=== PATIENT | male | born 1955 | race American Indian/Alaskan Native ===

== ENCOUNTER 2016-03-24 13:21 | Inpatient (IN) | payer OTHER ==
[2016-03-24] MEDS ORDERED: NACL 0.9% 1000 ML 500 ML IV ONE (13:40)
[2016-03-24 14:31] LABS: Basophils % (Auto) 0.1 % (0.0-1.8); Hemoglobin 16.5 gm/dl (11.8-15.2); Mean Corpuscular HGB Conc 32 % (32-34); Mean Corpuscular Hemoglobin 26 pg (28-32); Mean Corpuscular Volume 83 fl (84-94); Platelet Count 188 K/mm3 (140-440); Red Blood Count 6.25 M/mm3 (3.65-5.03); Red Cell Distribution Width 14.8 % (13.2-15.2); White Blood Count 20.1 K/mm3 (4.5-11.0)
[2016-03-24 14:41] LABS: Albumin 3.5 g/dL (3.9-5); Albumin/Globulin Ratio 0.9 %; BUN/Creatinine Ratio 16.84; Bilirubin,Total 0.3 mg/dL (0.1-1.2); Calcium 10.1 mg/dL (8.4-10.2); INR 1.15 (0.87-1.13); Total Protein 7.4 g/dL (6.3-8.2)
[2016-03-24 14:47] LABS: Bilirubin,Urine NEG (Negative); Blood,Urine SM (Negative); Ketones,Urine NEG (Negative); Leukocyte Esterase,Urine NEG (Negative); Mucus,Urine FEW /HPF; Nitrite,Urine NEG (Negative); Protein,Urine <15 mg/dL mg/dL (Negative); RBC,Urine < 1.0 /HPF (0.0-6.0); Urobilinogen,Urine < 2.0 mg/dL (<2.0)
--- NOTE | 2016-03-24 14:49 | Emergency Department Report ---
HPI - General Chief Complaint: Hyperglycemia Time Seen by Provider: 03/24/16 13:47 - HPI HPI: This is a 61-year-old Afro-Turkish male who presents to the emergency department via EMS with what appears to be some altered mental status and generalized weakness. Patient has some garbled speech but does follow some commands. He is a very poor historian. Currently AAO 2. He appears disoriented and is incontinent of urine. He has a past medical history of diabetes, hypertension, seizures as well as a history of valve replacement and aortic repair in the past. Unknown who is current primary care doctor is. ED Past Medical Hx - Past Medical History Hx Hypertension: Yes Hx Diabetes: Yes Hx Seizures: Yes Hx Psychiatric Treatment: Yes Additional medical history: Mechanical aortic valve, ascending thoracia aortic disection 2013 - Surgical History Additional Surgical History: valve replacement, aortic repair 06/2013, ascending thoracia aortic disection repair 2013 - Social History Smoking Status: Never Smoker - Medications Home Medications: Home Medications Medication Instructions Recorded Confirmed Last Taken Type Amiodarone [Cordarone 200 MG TAB] 200 mg PO DAILY #30 tablet 05/07/15 03/24/16 Unknown Rx AtorvaSTATin [Lipitor] 10 mg PO QHS tablet 05/07/15 03/24/16 Unknown Rx Famotidine [Pepcid] 20 mg PO BID tablet 05/07/15 03/24/16 Unknown Rx Insulin Glargine [Lantus VIAL] 30 units SUB-Q QHS units 05/07/15 03/24/16 Unknown Rx Labetalol [Normodyne TAB] 300 mg PO BID #60 tablet 05/07/15 03/24/16 Unknown Rx QUEtiapine [SEROquel] 25 mg PO BID #60 tablet 05/07/15 03/24/16 Unknown Rx cloNIDine [Catapres] 0.2 mg PO TID #90 tablet 05/07/15 03/24/16 Unknown Rx levETIRAcetam [Keppra TAB] 500 mg PO BID #60 tablet 05/07/15 03/24/16 Unknown Rx metFORMIN [Glucophage] 500 mg PO BID #60 tablet 05/07/15 03/24/16 Unknown Rx Lisinopril [Zestril TAB] 40 mg PO BID 09/23/15 03/24/16 Unknown History NIFEdipine 60 mg PO DAILY 09/23/15 03/24/16 Unknown History Prazosin [Minipress] 5 mg PO BID 09/23/15 03/24/16 Unknown History glipiZIDE [glipiZIDE ER] 5 mg PO QAM 09/23/15 03/24/16 Unknown History Carvedilol [Coreg] 3.125 mg PO BID #60 tablet 09/24/15 03/24/16 Unknown Rx ED Review of Systems ROS: Stated complaint: HYPERGLYCEMIA Other details as noted in HPI Comment: Unobtainable due to pts medical conditions Physical Exam - Physical Exam Vital Signs: Vital Signs 03/24/16 03/24/16 03/24/16 13:33 13:34 13:36 Pulse Rate 101 H 104 H Respiratory 24 Rate Blood Pressure 187/142 187/142 Blood Pressure 187/102 [Right] O2 Sat by Pulse 93 Oximetry 03/24/16 03/24/16 03/24/16 13:37 13:39 13:41 Pulse Rate 103 H 100 H Respiratory 29 H 19 21 Rate Blood Pressure 187/142 187/142 187/142 Blood Pressure [Right] O2 Sat by Pulse 94 94 Oximetry 03/24/16 03/24/16 03/24/16 13:43 13:45 13:47 Pulse Rate Respiratory 29 H 24 24 Rate Blood Pressure 187/142 187/142 187/142 Blood Pressure [Right] O2 Sat by Pulse 92 95 92 Oximetry 03/24/16 03/24/16 03/24/16 13:49 13:51 13:53 Pulse Rate Respiratory 18 27 H 37 H Rate Blood Pressure 187/142 187/142 187/142 Blood Pressure [Right] O2 Sat by Pulse 94 93 92 Oximetry 03/24/16 03/24/16 03/24/16 13:55 13:57 13:59 Pulse Rate Respiratory 22 25 H Rate Blood Pressure 187/142 187/142 187/142 Blood Pressure [Right] O2 Sat by Pulse 97 96 97 Oximetry 03/24/16 03/24/16 03/24/16 14:00 14:01 14:03 Pulse Rate Respiratory Rate Blood Pressure 162/116 162/116 187/142 Blood Pressure [Right] O2 Sat by Pulse 96 95 93 Oximetry 03/24/16 03/24/16 03/24/16 14:05 14:07 14:09 Pulse Rate Respiratory Rate Blood Pressure 187/142 187/142 187/142 Blood Pressure [Right] O2 Sat by Pulse 96 91 96 Oximetry 03/24/16 03/24/16 03/24/16 14:11 14:13 14:15 Pulse Rate Respiratory Rate Blood Pressure 187/142 187/142 187/142 Blood Pressure [Right] O2 Sat by Pulse 95 93 95 Oximetry 03/24/16 03/24/16 03/24/16 14:17 14:19 14:21 Pulse Rate 99 H 99 H Respiratory 18 Rate Blood Pressure 187/142 187/142 187/142 Blood Pressure [Right] O2 Sat by Pulse 92 96 95 Oximetry 03/24/16 03/24/16 14:23 14:25 Pulse Rate 98 H 98 H Respiratory 14 14 Rate Blood Pressure 187/142 187/142 Blood Pressure [Right] O2 Sat by Pulse 97 100 Oximetry Physical Exam: GENERAL: The patient is well-developed. Patient appears confused. HEENT: Normocephalic. Atraumatic. Extraocular motions are intact. Patient has moist mucous membranes. Pupils equal reactive to light bilaterally. NECK: Supple. Trachea is midline. CHEST/LUNGS: Clear to auscultation. There is no respiratory distress noted. HEART/CARDIOVASCULAR: Regular. There is no tachycardia. There is no gallop rub or murmur. ABDOMEN: Abdomen is soft, nontender. Patient has normal bowel sounds. There is no abdominal distention. SKIN: There is no rash. There is no edema. There is no diaphoresis. NEURO: Patient is fatigued but is arousable. Patient appears confused. AAO 1- 2. Patient has some garbled or mumbled speech. Follows some commands. Withdraws from painful stimuli. MUSCULOSKELETAL: There is no tenderness or deformity. There is no limitation range of motion. There is no evidence of acute injury. ED Course Vital Signs 03/24/16 03/24/16 03/24/16 13:33 13:34 13:36 Pulse Rate 101 H 104 H Respiratory 24 Rate Blood Pressure 187/142 187/142 Blood Pressure 187/102 [Right] O2 Sat by Pulse 93 Oximetry 03/24/16 03/24/16 03/24/16 13:37 13:39 13:41 Pulse Rate 103 H 100 H Respiratory 29 H 19 21 Rate Blood Pressure 187/142 187/142 187/142 Blood Pressure [Right] O2 Sat by Pulse 94 94 Oximetry 03/24/16 03/24/16 03/24/16 13:43 13:45 13:47 Pulse Rate Respiratory 29 H 24 24 Rate Blood Pressure 187/142 187/142 187/142 Blood Pressure [Right] O2 Sat by Pulse 92 95 92 Oximetry 03/24/16 03/24/16 03/24/16 13:49 13:51 13:53 Pulse Rate Respiratory 18 27 H 37 H Rate Blood Pressure 187/142 187/142 187/142 Blood Pressure [Right] O2 Sat by Pulse 94 93 92 Oximetry 03/24/16 03/24/16 03/24/16 13:55 13:57 13:59 Pulse Rate Respiratory 22 25 H Rate Blood Pressure 187/142 187/142 187/142 Blood Pressure [Right] O2 Sat by Pulse 97 96 97 Oximetry 03/24/16 03/24/16 03/24/16 14:00 14:01 14:03 Pulse Rate Respiratory Rate Blood Pressure 162/116 162/116 187/142 Blood Pressure [Right] O2 Sat by Pulse 96 95 93 Oximetry 03/24/16 03/24/16 03/24/16 14:05 14:07 14:09 Pulse Rate Respiratory Rate Blood Pressure 187/142 187/142 187/142 Blood Pressure [Right] O2 Sat by Pulse 96 91 96 Oximetry 03/24/16 03/24/16 03/24/16 14:11 14:13 14:15 Pulse Rate Respiratory Rate Blood Pressure 187/142 187/142 187/142 Blood Pressure [Right] O2 Sat by Pulse 95 93 95 Oximetry 03/24/16 03/24/16 03/24/16 14:17 14:19 14:21 Pulse Rate 99 H 99 H Respiratory 18 Rate Blood Pressure 187/142 187/142 187/142 Blood Pressure [Right] O2 Sat by Pulse 92 96 95 Oximetry 03/24/16 03/24/16 14:23 14:25 Pulse Rate 98 H 98 H Respiratory 14 14 Rate Blood Pressure 187/142 187/142 Blood Pressure [Right] O2 Sat by Pulse 97 100 Oximetry ED Medical Decision Making - Lab Data Result diagrams: 03/24/16 14:00 03/24/16 14:00 - EKG Data -: EKG Interpreted by [facility] EKG shows normal: sinus rhythm, axis (LAD), intervals (short MA, LBBB), QRS complexes, ST-T waves (NSST CHanges) Rate: normal - EKG Data When compared to previous EKG there are: previous EKG unavailable Sinus rhythm with short MA interval, left axis deviation, left bundle branch block 03/24/16 18:42 - Medical Decision Making 58-year-old male presents the emergency department with the complaints of altered mental status and some hyperglycemia. However after the patient's workup he does not appear to be in DKA or HHNK. Patient's EKG shows a short MA interval and a left bundle branch block but no obvious signs of ST elevation VT. Patient does have some significant lab abnormalities with a hypernatremia with a sodium of 164, hypochloremia, renal insufficiency. A CT of the head was done for the patient's altered mental status. Also because the patient displays some garbled speech but the CT shows only senescent changes and no acute process at this time. Patient was given some subcutaneous insulin for his hyperglycemia. He was given some IV fluid at normal saline for fully reproducing his hypernatremia. Patient will be admitted to hospital for further evaluation and is been accepted for admission by the hospitalist, Dr. Hernandez. - Differential Diagnosis DKA, HHNK, hypernatremia, CVA, dementia Critical Care Time: No Critical care attestation.: If time is entered above; I have spent that time in minutes in the direct care of this critically ill patient, excluding procedure time. ED Disposition Clinical Impression: Hypertensive urgency, Hypernatremia, Hyperchloremia, Renal insufficiency Altered mental status Qualifiers: Altered mental status type: unspecified Qualified Code(s): R41.82 - Altered mental status, unspecified Disposition: OP ADMITTED IP TO THIS HOSP Is pt being admited?: Yes Condition: Poor Time of Disposition: 16:20
--- NOTE | 2016-03-24 15:23 | XRay Report ---
AP CHEST History: Sepsis Findings: Cardiac surgery changes are again noted. There is decreased cardiomegaly since 09/23/15. Heart size is borderline on today's exam. Normal pulmonary vascularity. The lungs are clear. The aorta is mildly ectatic but well-defined. Impression: Borderline heart size. Lungs clear.
--- NOTE | 2016-03-24 15:27 | Cat Scan Report ---
CT head without contrast: Axial images are obtained with comparison to prior study of April 2015. There is marked decreased periventricular white matter change. There are a couple of lacunar infarcts in the right caudate nucleus. There is a peripheral infarct in the superior right frontal lobe. There is moderate cerebral atrophy. There is no hemorrhage, mass effect, or extracerebral collection. The visualized bones and soft tissues are generally unremarkable. The findings are generally unchanged from prior exam. Impression: No recent findings. Senescent changes.
[2016-03-24] MEDS ORDERED: NACL 0.9% 500 ML 500 ML ONE (15:32)
--- NOTE | 2016-03-24 15:57 | Admit Criteria Form ---
Admission Criteria Documentation: HYPONATREMIA; HYPERNATREMIA; HYPOKALEMIA; HYPERKALEMIA; HYPOCALCEMIA; HYPERCALCEMIA Clinical Indications for Inpatient Care (Place 'X' for any and all applicable criteria): Ongoing inpatient care may be indicated for ANY ONE of the following [G](1)(2)(3 )(5): [ ]I. Hyponatremia with ANY ONE of the following: [ ]a) Sodium less than 130 mEq/L (mmol/L) (new) (6)(22) [ ]b) Sodium less than 135 mEq/L (mmol/L) with ANY ONE of the following: [ ]i) Severe medical etiology requiring inpatient management (eg, heart failure, hypovolemia) [ ]ii) Altered mental status [ ]iii) Seizures [X]II. Hypernatremia with ANY ONE of the following: [X]a) Sodium greater than 155 mEq/L (mmol/L) [X]b) Sodium greater than 150 mEq/L (mmol/L) with ANY ONE of the following: [X] i) Altered mental status [ ]ii) Seizures [ ]iii) Severe medical etiology (eg, hypovolemia, diabetes insipidus) [X]iv) Severe weakness [ ]v) Severe medical etiology (eg, hemolysis, infection, drug overdose) [ ]III. Hypokalemia with ANY ONE of the following: [ ]a) Potassium less than 2.5 mEq/L (mmol/L) despite outpatient and emergency treatment [ ]b) Potassium less than 3.0 mEq/L (mmol/L) with ANY ONE of the following: [ ]i) Weakness [ ]ii) Cardiac abnormality (eg, arrhythmia, conduction disturbance) [ ]iii) Cardiac ischemia [ ]iv) Ileus [ ]v) Ongoing medical cause requiring inpatient management. ( e.g., acute renal wasting, SIADH) [ ]vi) Other severe symptoms [ ] IV. Hyperkalemia with ANY ONE of the following: [ ]a) Potassium greater than 6.5 mEq/L (mmol/L) [ ]b) Potassium greater than 5 mEq/L (mmol/L) with ANY ONE of the following: [ ]i) Severe ECG findings [H] [ ]ii) Acute worsening of renal failure (creatinine greater than 2.5 mg/dL (221 micromoles/L) or significant elevation for age and size) [ ] V. Hypocalcemia with ANY ONE of the following: [ ]a) Calcium less than 7 mg/dL (1.75 mmol/L) despite outpatient and emergency treatment(19) [ ]b) Calcium less than 8 mg/dL (2 mmol/L) with significant symptoms or findings; examples include: [ ]i) Cardiac abnormality (eg, arrhythmia or conduction disturbance) [ ]ii) Altered mental status [ ]iii) Seizures [ ]iv) Breathing difficulty [ ]v) Muscle spasms [ ]. Hypercalcemia with ANY ONE of the following: [ ]a) Calcium greater than 14 mg/dL (3.5 mmol/L) [ ]b) Calcium greater than 12 mg/dL (3 mmol/L) with ANY ONE of the following: [ ]i) Significant dehydration or hypovolemia as indicated by ANY ONE of the following(2): [ ]1. Clinically significant dehydration as indicated by ANY ONE of the following: [ ]A. Acute loss of weight from baseline (5% of body weight in adults, 9% in pediatric patients) [ ]B. Hemodynamic instability [ ]C. Acute renal failure [ ]D. Serum sodium greater than 150 mEq/L (mmol/L) [ ]2) Dehydration that is persistent indicated by ALL of the following: [ ]A. Oral rehydration therapy not tolerated or insufficient to adequately correct dehydration [ ]B. Appropriate intravenous treatment (eg, fluids ) does not readily correct dehydration ie, after 12 to 24 hours of treatment) [ ]ii) Significant symptoms or findings; examples include: [ ]1) Altered mental status [ ]2) Cardiac abnormality (eg, arrhythmia, conduction disturbance) [ ]3) Cardiac abnormality (eg, arrhythmia, conduction disturbance) The original [facility] content created by [employer] has been revised. The portions of the content which have been revised are identified through the use of italic text or in bold, and [facility] has neither reviewed nor approved the modified material. All other unmodified content is copyright [facility] Please see references footnoted in the original [facility] edition 2016 Admission Criteria Met: Yes
[2016-03-24] MEDS ORDERED: NORMODYNE IV ONE (16:12)
[2016-03-24] MEDS ORDERED: DULCOLAX PR PRN (17:22)
--- NOTE | 2016-03-24 17:50 | History and Physical Report ---
History of Present Illness Date of examination: 03/24/16 Date of admission: 03/24/16 Chief complaint: Change in mental status, weakness History of present illness: Michael is a 60 years old -[place] male with nonobstructive CAD per recent CAD, hypertension, hyperlipidemia, bioprosthetic aortic valve replacement, chronic kidney disease, diabetes and seizure disorder who was brought to ER by his family for change in mental status and generalized weakness; his family left immediately after bringing him in, so no details are obtainable. Past History Past Medical History: CAD, diabetes, hypertension, hyperlipidemia, renal failure , seizures, other (bioprosthetic aortic valve, aortic dissection; obtained per chart review) Past Surgical History: Other (bioprosthetic aortic valve replacement, aortic dissection repair 2; obtained per chart review) Social history: other (unable to obtain due to patient's mental status) Family history: other (unable to obtain due to patient's mental status) Medications and Allergies Allergies Allergy/AdvReac Type Severity Reaction Status Date / Time No Known Allergies Allergy Unverified 05/19/13 09:32 Home Medications Medication Instructions Recorded Confirmed Last Taken Type Amiodarone [Cordarone 200 MG TAB] 200 mg PO DAILY #30 tablet 05/07/15 03/24/16 Unknown Rx AtorvaSTATin [Lipitor] 10 mg PO QHS tablet 05/07/15 03/24/16 Unknown Rx Famotidine [Pepcid] 20 mg PO BID tablet 05/07/15 03/24/16 Unknown Rx Insulin Glargine [Lantus VIAL] 30 units SUB-Q QHS units 05/07/15 03/24/16 Unknown Rx Labetalol [Normodyne TAB] 300 mg PO BID #60 tablet 05/07/15 03/24/16 Unknown Rx QUEtiapine [SEROquel] 25 mg PO BID #60 tablet 05/07/15 03/24/16 Unknown Rx cloNIDine [Catapres] 0.2 mg PO TID #90 tablet 05/07/15 03/24/16 Unknown Rx levETIRAcetam [Keppra TAB] 500 mg PO BID #60 tablet 05/07/15 03/24/16 Unknown Rx metFORMIN [Glucophage] 500 mg PO BID #60 tablet 05/07/15 03/24/16 Unknown Rx Lisinopril [Zestril TAB] 40 mg PO BID 09/23/15 03/24/16 Unknown History NIFEdipine 60 mg PO DAILY 09/23/15 03/24/16 Unknown History Prazosin [Minipress] 5 mg PO BID 09/23/15 03/24/16 Unknown History glipiZIDE [glipiZIDE ER] 5 mg PO QAM 09/23/15 03/24/16 Unknown History Carvedilol [Coreg] 3.125 mg PO BID #60 tablet 09/24/15 03/24/16 Unknown Rx Active Meds: Active Medications Acetaminophen (Tylenol) 650 mg PO Q4H PRN PRN Reason: Pain MILD(1-3)/Fever >100.5/DUVAL Amiodarone HCl (Cordarone) 200 mg PO DAILY [facility] Atorvastatin Calcium (Lipitor) 10 mg PO QHS ANA LUISA Bisacodyl (Dulcolax) 10 mg WA QDAY PRN PRN Reason: Constipation unrelieved by MOM Carvedilol (Coreg) 3.125 mg PO BID [facility] Clonidine HCl (Catapres) 0.2 mg PO TID [facility] Dextrose (D50w (25gm)) 50 ml IV PRN PRN PRN Reason: Hypoglycemia Famotidine (Pepcid) 20 mg PO BID [facility] Heparin Sodium (Porcine) (Heparin) 5,000 unit SUB-Q Q8HR ANA LUISA Dextrose/Sodium Chloride (D5/0.45ns) 1,000 mls @ 125 mls/hr IV DIRECT ANA LUISA Insulin Glargine (Lantus) 30 units SUB-Q QHS [facility] Insulin Glulisine (Apidra) 0 units SUB-Q ACHS ANA LUISA PRN Reason: Protocol Levetiracetam (Keppra) 500 mg PO BID ANA LUISA Magnesium Hydroxide (Milk Of Magnesia) 30 ml PO Q4H PRN PRN Reason: Constipation Nifedipine (Procardia*For Tocolysis Only*) 60 mg PO DAILY [facility] Ondansetron HCl (Zofran) 4 mg IV Q8H PRN PRN Reason: N/V unrelieved by Reglan Prazosin HCl (Minipress) 5 mg PO BID [facility] Quetiapine Fumarate (Seroquel) 25 mg PO BID [facility] Review of Systems ROS unobtainable: due to mental status Exam - Constitutional Vitals: Temp Pulse Resp BP Pulse Ox 98 H 22 187/142 98 03/24/16 14:25 03/24/16 14:46 03/24/16 14:25 03/24/16 14:46 General appearance: Present: mild distress, other (frail, chronically ill- appearing, confused) - EENT Eyes: Present: PERRL, EOM intact. Absent: scleral icterus, conjunctival injection - Neck Neck: Present: supple. Absent: enlarged thyroid, masses or JVD - Respiratory Respiratory effort: normal Respiratory: bilateral: CTA, negative: rales, rhonchi, wheezing - Cardiovascular Rhythm: regular Heart Sounds: Present: S1 & S2, systolic murmur - Extremities Extremities: no ischemia - Abdominal General gastrointestinal: Present: soft, non-tender, non-distended, normal bowel sounds - Integumentary Integumentary: Present: warm, dry. Absent: jaundice, rash - Musculoskeletal Musculoskeletal: generalized weakness - Psychiatric Psychiatric: other (confused, oriented to person only) - Neurologic Neurologic: focal deficits Results - Labs CBC & Chem 7: 03/24/16 14:00 03/24/16 14:00 Labs: Abnormal lab results 03/24/16 03/24/16 03/24/16 Range/Units 14:00 14:00 14:00 WBC 20.1 H (4.5-11.0) K/mm3 RBC 6.25 H (3.65-5.03) M/mm3 Hgb 16.5 H (11.8-15.2) gm/dl Hct 52.0 H (35.5-45.6) % MCV 83 L (84-94) fl MCH 26 L (28-32) pg Lymph % (Auto) 4.5 L (13.4-35.0) % Buchanan % (Auto) 9.5 H (0.0-7.3) % Lymph # 0.9 L (1.2-5.4) K/mm3 [place]anan # 1.9 H (0.0-0.8) K/mm3 Seg Neutrophils % 85.9 H (40.0-70.0) % Seg Neutrophils # 17.2 H (1.8-7.7) K/mm3 INR 1.15 H (0.87-1.13) Sodium 164 H* (137-145) mmol/L Chloride 126.0 H (98-107) mmol/L BUN 32 H (9-20) mg/dL Creatinine 1.9 H (0.8-1.5) mg/dL Glucose 331 H (75-100) mg/dL Lactic Acid (0.7-2.1) mmol/L Albumin 3.5 L (3.9-5) g/dL 03/24/16 03/24/16 Range/Units 14:00 15:26 WBC (4.5-11.0) K/mm3 RBC (3.65-5.03) M/mm3 Hgb (11.8-15.2) gm/dl Hct (35.5-45.6) % MCV (84-94) fl MCH (28-32) pg Lymph % (Auto) (13.4-35.0) % Buchanan % (Auto) (0.0-7.3) % Lymph # (1.2-5.4) K/mm3 [place]anan # (0.0-0.8) K/mm3 Seg Neutrophils % (40.0-70.0) % Seg Neutrophils # (1.8-7.7) K/mm3 INR (0.87-1.13) Sodium (137-145) mmol/L Chloride (98-107) mmol/L BUN (9-20) mg/dL Creatinine (0.8-1.5) mg/dL Glucose (75-100) mg/dL Lactic Acid 2.6 H 2.8 H (0.7-2.1) mmol/L Albumin (3.9-5) g/dL - Imaging and Cardiology EKG: image reviewed Chest x-ray: image reviewed (no acute findings) CT Scan - head: report reviewed (no acute findings) Assessment and Plan 1. Acute metabolic encephalopathy Secondary to electrolyte abnormalities, uncontrolled HTN/DM Treating underlying conditions 2. Hypernatremia Severe, sodium 164 on admission Received 500 mL NaCL in ER Start D5 1/2 NS Plan to slowly decrease it, to avoid demyelinization syndrome Check sodium levels every 6 hours 3. Hyperchloremia IV fluids 4. Hypertensive emergency Most likely has a significant component of rebound hypertension secondary to clonidine skipped doses UA positive for blood Give IV hydralazine Resume home antihypertensives - clonidine, Coreg and nifedipine; hold labetalol as no reason to be on 2 beta blockers; hold lisinopril due to renal insufficiency Monitor BP and adjust regimen accordingly; add hydralazine po if not well controlled 5. Acute on chronic renal insufficiency Likely vasomotor nephropathy due to decreased intake on top of chronic insufficiency secondary to uncontrolled hypertension/diabetes Give IV fluids Monitor BUN/creatinine and electrolytes Further workup if renal function worsens 6. Dehydration IV fluids 7. Elevated HGb Likely secondary to hemoconcentration due to dehydration Recheck after IV fluids given 8. Uncontrolled diabetes Resume long-acting insulin Add SSI based on Accu-Cheks Monitor closely and adjust insulin doses 9. Leukocytosis No obvious infection Chest x-ray with no acute findings, UA negative Possible secondary to stress reaction Monitor 10. Seizure disorder Resume Keppra Seizure precautions 11. Nonobstructive CAD Per recent cath Resume beta em and statin Start aspirin Hold LUIS A inhibitor due to renal insufficiency 12. History of arrhythmia On amiodarone Not on anticoagulation Will consult his marine surveyor, [facility] 13. Bioprosthetic aortic valve replacement See above 14. Aortic dissection status post repair 2 15. DVT prophylaxis Heparin subcutaneous, SCDs
[2016-03-24] MEDS ORDERED: PROCARDIA*For Tocolysis only PO SCH (18:00)
[2016-03-24] MEDS ORDERED: APRESOLINE IV ONE (18:00)
[2016-03-24] MEDS: CATAPRES PO SCH (19:36)
[2016-03-24] MEDS: CORDARONE PO SCH (19:37)
[2016-03-24] MEDS ORDERED: APRESOLINE IV SCH (20:00)
[2016-03-24] MEDS ORDERED: CATAPRES-TTS PATCH TD SCH (20:00)
[2016-03-24 21:13] LABS: BUN/Creatinine Ratio 15.55; Calcium 10.1 mg/dL (8.4-10.2); Chloride 130.3 mmol/L (98-107); Potassium 3.5 mmol/L (3.6-5.0)
[2016-03-24] MEDS: D5/0.45NS 1,000 ML IV SCH (21:15)
[2016-03-24] MEDS ORDERED: D5/0.45NS 1,000 ML IV ONE (21:19)
[2016-03-25] MEDS: COREG PO SCH ×2 (00:15→10:12)
[2016-03-25] MEDS: PEPCID PO SCH ×2 (00:15→10:13)
[2016-03-25] MEDS: MINIPRESS PO SCH ×2 (00:15→10:12)
[2016-03-25] MEDS: KEPPRA PO SCH ×2 (00:15→10:12)
[2016-03-25] MEDS: APIDRA SUB-Q SCH ×5 (00:15→22:35)
[2016-03-25] MEDS: LANTUS SUB-Q SCH ×2 (00:15→22:30)
[2016-03-25] MEDS: HEPARIN SUB-Q SCH ×4 (00:30→21:55)
[2016-03-25] MEDS: APRESOLINE IV PRN ×3 (05:30→21:55)
[2016-03-25 06:33] LABS: Hematocrit 52.7 % (35.5-45.6); Hemoglobin 16.7 gm/dl (11.8-15.2); Mean Corpuscular HGB Conc 32 % (32-34); Mean Corpuscular Hemoglobin 27 pg (28-32); Mean Corpuscular Volume 83 fl (84-94); Platelet Count 191 K/mm3 (140-440); Red Blood Count 6.32 M/mm3 (3.65-5.03); Red Cell Distribution Width 15.1 % (13.2-15.2); White Blood Count 21.3 K/mm3 (4.5-11.0)
[2016-03-25 06:53] LABS: BUN/Creatinine Ratio 16.11; Calcium 9.5 mg/dL (8.4-10.2); Chloride 130.4 mmol/L (98-107); Potassium 3.5 mmol/L (3.6-5.0)
[2016-03-25 07:51] LABS: Basophils % (Manual) 0 % (0.0-1.8); Blastocytes % (Manual) 0 %; Diff Status Complete; Eosinophils % (Manual) 0 % (0.0-4.3); RBC Morphology Normal
[2016-03-25] MEDS: CATAPRES PO SCH ×2 (08:07→15:27)
[2016-03-25] MEDS: CORDARONE PO SCH (10:12)
[2016-03-25] MEDS: PROCARDIA XL PO SCH (10:13)
--- NOTE | 2016-03-25 12:08 | Progress Note ---
Assessment and Plan - Patient Problems (1) Hypernatremia Current Visit: Yes Status: Acute Plan to address problem: IVF, supportive care, monitor serum sodium, (2) Encephalopathy Current Visit: Yes Status: Acute Plan to address problem: metabolic: continue current care. ivf, supportive care. (3) Acute renal failure Current Visit: Yes Status: Acute Plan to address problem: IVF, supportive care, monitor uop q 4 hrs. (4) Leukocytosis Current Visit: Yes Status: Acute Plan to address problem: continue current care, NO infective source, continue empiric abx. (5) DVT prophylaxis Current Visit: Yes Status: Acute History Interval history: Pt lying in bed, no reported nursing events. Pt displays mild cognitive slowing. Pt responds to questions. Pt denies pain. Pt states that " I am on the mend". Hospitalist Physical - Constitutional Vitals: Temp Pulse Resp BP Pulse Ox 98.4 F 124 H 20 168/103 99 03/25/16 07:58 03/25/16 10:00 03/25/16 10:00 03/25/16 07:58 03/25/16 10:00 General appearance: Present: mild distress, cachectic, other (frail, chronically ill-appearing, confused) - EENT Eyes: Present: PERRL, EOM intact ENT: hearing intact - Neck Neck: Present: supple - Respiratory Respiratory: bilateral: diminished - Cardiovascular Rhythm: regular Heart Sounds: Present: S1 & S2 - Extremities Extremities: no ischemia Extremity abnormal: edema Peripheral Pulses: within normal limits - Abdominal General gastrointestinal: soft, non-tender, non-distended - Integumentary Integumentary: Present: clear, dry - Psychiatric Psychiatric: no intact judgment & insight - Neurologic Neurologic: CNII-XII intact Results - Labs CBC & Chem 7: 03/25/16 05:56 03/25/16 05:56 Labs: Laboratory Last Values WBC 21.3 K/mm3 (4.5-11.0) H 03/25/16 05:56 RBC 6.32 M/mm3 (3.65-5.03) H 03/25/16 05:56 Hgb 16.7 gm/dl (11.8-15.2) H 03/25/16 05:56 Hct 52.7 % (35.5-45.6) H 03/25/16 05:56 MCV 83 fl (84-94) L 03/25/16 05:56 MCH 27 pg (28-32) L 03/25/16 05:56 MCHC 32 % (32-34) 03/25/16 05:56 RDW 15.1 % (13.2-15.2) 03/25/16 05:56 Plt Count 191 K/mm3 (140-440) 03/25/16 05:56 Lymph % (Auto) 4.5 % (13.4-35.0) L 03/24/16 14:00 [place] % (Auto) 9.5 % (0.0-7.3) H 03/24/16 14:00 Eos % (Auto) 0.0 % (0.0-4.3) 03/24/16 14:00 Baso % (Auto) 0.1 % (0.0-1.8) 03/24/16 14:00 Lymph # 0.9 K/mm3 (1.2-5.4) L 03/24/16 14:00 [place] # 1.9 K/mm3 (0.0-0.8) H 03/24/16 14:00 Eos # 0.0 K/mm3 (0.0-0.4) 03/24/16 14:00 Baso # 0.0 K/mm3 (0.0-0.1) 03/24/16 14:00 Add Manual Diff Complete 03/25/16 05:56 Total Counted 100 03/25/16 05:56 Seg Neutrophils % 85.9 % (40.0-70.0) H 03/24/16 14:00 Seg Neuts % (Manual) 91.0 % (40.0-70.0) H 03/25/16 05:56 Band Neutrophils % 1.0 % 03/25/16 05:56 Lymphocytes % (Manual) 4.0 % (13.4-35.0) L 03/25/16 05:56 Reactive Lymphs % (Man) 0 % 03/25/16 05:56 Monocytes % (Manual) 4.0 % (0.0-7.3) 03/25/16 05:56 Eosinophils % (Manual) 0 % (0.0-4.3) 03/25/16 05:56 Basophils % (Manual) 0 % (0.0-1.8) 03/25/16 05:56 Metamyelocytes % 0 % 03/25/16 05:56 Myelocytes % 0 % 03/25/16 05:56 Promyelocytes % 0 % 03/25/16 05:56 Blast Cells % 0 % 03/25/16 05:56 Nucleated RBC % Not Reportable 03/25/16 05:56 Seg Neutrophils # 17.2 K/mm3 (1.8-7.7) H 03/24/16 14:00 Seg Neutrophils # Man 19.4 K/mm3 (1.8-7.7) H 03/25/16 05:56 Band Neutrophils # 0.2 K/mm3 03/25/16 05:56 Lymphocytes # (Manual) 0.9 K/mm3 (1.2-5.4) L 03/25/16 05:56 Abs React Lymphs (Man) 0.0 K/mm3 03/25/16 05:56 Monocytes # (Manual) 0.9 K/mm3 (0.0-0.8) H 03/25/16 05:56 Eosinophils # (Manual) 0.0 K/mm3 (0.0-0.4) 03/25/16 05:56 Basophils # (Manual) 0.0 K/mm3 (0.0-0.1) 03/25/16 05:56 Metamyelocytes # 0.0 K/mm3 03/25/16 05:56 Myelocytes # 0.0 K/mm3 03/25/16 05:56 Promyelocytes # 0.0 K/mm3 03/25/16 05:56 Blast Cells # 0.0 K/mm3 03/25/16 05:56 WBC Morphology Not Reportable 03/25/16 05:56 Hypersegmented Neuts Not Reportable 03/25/16 05:56 Hyposegmented Neuts Not Reportable 03/25/16 05:56 Hypogranular Neuts Not Reportable 03/25/16 05:56 Smudge Cells Not Reportable 03/25/16 05:56 Toxic Granulation Not Reportable 03/25/16 05:56 Toxic Vacuolation Not Reportable 03/25/16 05:56 Dohle Bodies Not Reportable 03/25/16 05:56 Pelger-Huet Anomaly Not Reportable 03/25/16 05:56 Corina Rods Not Reportable 03/25/16 05:56 Platelet Estimate Appears normal 03/25/16 05:56 Clumped Platelets Not Reportable 03/25/16 05:56 Plt Clumps, EDTA Not Reportable 03/25/16 05:56 Large Platelets Not Reportable 03/25/16 05:56 Giant Platelets Not Reportable 03/25/16 05:56 Platelet Satelliting Not Reportable 03/25/16 05:56 Plt Morphology Comment Not Reportable 03/25/16 05:56 RBC Morphology Normal 03/25/16 05:56 Dimorphic RBCs Not Reportable 03/25/16 05:56 Polychromasia Not Reportable 03/25/16 05:56 Hypochromasia Not Reportable 03/25/16 05:56 Poikilocytosis Not Reportable 03/25/16 05:56 Anisocytosis Not Reportable 03/25/16 05:56 Microcytosis Not Reportable 03/25/16 05:56 Macrocytosis Not Reportable 03/25/16 05:56 Spherocytes Not Reportable 03/25/16 05:56 Pappenheimer Bodies Not Reportable 03/25/16 05:56 Sickle Cells Not Reportable 03/25/16 05:56 Target Cells Not Reportable 03/25/16 05:56 Tear Drop Cells Not Reportable 03/25/16 05:56 Ovalocytes Not Reportable 03/25/16 05:56 Helmet Cells Not Reportable 03/25/16 05:56 [place]gr[place] Bodies Not Reportable 03/25/16 05:56 [place] Rings Not Reportable 03/25/16 05:56 Tuan Cells Not Reportable 03/25/16 05:56 Bite Cells Not Reportable 03/25/16 05:56 Crenated Cell Not Reportable 03/25/16 05:56 Elliptocytes Not Reportable 03/25/16 05:56 Acanthocytes (Spur) Not Reportable 03/25/16 05:56 Rouleaux Not Reportable 03/25/16 05:56 Hemoglobin C Crystals Not Reportable 03/25/16 05:56 Schistocytes Not Reportable 03/25/16 05:56 Malaria parasites Not Reportable 03/25/16 05:56 Gideon Bodies Not Reportable 03/25/16 05:56 Hem Pathologist Commnt No 03/25/16 05:56 PT 14.6 Sec. (12.2-14.9) 03/24/16 14:00 INR 1.15 (0.87-1.13) H 03/24/16 14:00 VBG pH 7.418 (7.320-7.420) 03/24/16 14:00 Sodium 172 mmol/L (137-145) H* 03/25/16 05:56 Potassium 3.5 mmol/L (3.6-5.0) L 03/25/16 05:56 Chloride 130.4 mmol/L (98-107) H 03/25/16 05:56 Carbon Dioxide 23 mmol/L (22-30) 03/25/16 05:56 Anion Gap 22 mmol/L 03/25/16 05:56 BUN 29 mg/dL (9-20) H 03/25/16 05:56 Creatinine 1.8 mg/dL (0.8-1.5) H 03/25/16 05:56 Estimated GFR 46 ml/min 03/25/16 05:56 BUN/Creatinine Ratio 16.11 % 03/25/16 05:56 Glucose 187 mg/dL (75-100) H 03/25/16 05:56 POC Glucose 231 (70-105) H 03/25/16 07:55 Hemoglobin A1c 9.6 % (4-6) H 03/24/16 14:00 Lactic Acid 2.8 mmol/L (0.7-2.1) H 03/24/16 15:26 Calcium 9.5 mg/dL (8.4-10.2) 03/25/16 05:56 Total Bilirubin 0.3 mg/dL (0.1-1.2) 03/24/16 14:00 AST 24 units/L (5-40) 03/24/16 14:00 ALT 38 units/L (7-56) 03/24/16 14:00 Alkaline Phosphatase 77 units/L (35-129) 03/24/16 14:00 Total Protein 7.4 g/dL (6.3-8.2) 03/24/16 14:00 Albumin 3.5 g/dL (3.9-5) L 03/24/16 14:00 Albumin/Globulin Ratio 0.9 % 03/24/16 14:00 Triglycerides 88 mg/dL (2-149) 03/24/16 17:58 Cholesterol 221 mg/dL (50-199) H 03/24/16 17:58 LDL Cholesterol Direct 146 mg/dL (50-130) H 03/24/16 17:58 HDL Cholesterol 58 mg/dL (40-59) 03/24/16 17:58 Cholesterol/HDL Ratio 3.81 % 03/24/16 17:58 Urine Color Yellow (Yellow) 03/24/16 14:27 Urine Turbidity Clear (Clear) 03/24/16 14:27 Urine pH 5.0 (5.0-7.0) 03/24/16 14:27 Ur Specific [place] 1.017 (1.003-1.030) 03/24/16 14:27 Urine Protein <15 mg/dl mg/dL (Negative) 03/24/16 14:27 Urine Glucose (UA) >=500 mg/dL (Negative) 03/24/16 14:27 Urine Ketones Neg mg/dL (Negative) 03/24/16 14:27 Urine Blood Sm (Negative) 03/24/16 14:27 Urine Nitrite Neg (Negative) 03/24/16 14:27 Urine Bilirubin Neg (Negative) 03/24/16 14:27 Urine Urobilinogen < 2.0 mg/dL (<2.0) 03/24/16 14:27 Ur Leukocyte Esterase Neg (Negative) 03/24/16 14:27 Urine WBC (Auto) 2.0 /HPF (0.0-6.0) 03/24/16 14:27 Urine RBC (Auto) < 1.0 /HPF (0.0-6.0) 03/24/16 14:27 U Epithel Cells (Auto) 4.0 /HPF (0-13.0) 03/24/16 14:27 Hyaline Casts 1 /LPF 03/24/16 14:27 Urine Mucus Few /HPF 03/24/16 14:27 Ketones 1.0 mg/dL (0.2-2.8) 03/24/16 14:00
[2016-03-25] MEDS: D5/0.45NS 1,000 ML IV SCH ×2 (16:52→21:59)
[2016-03-26] MEDS: CATAPRES PO SCH ×4 (00:02→20:40)
[2016-03-26] MEDS: COREG PO SCH ×3 (00:03→23:14)
[2016-03-26] MEDS: KEPPRA PO SCH ×3 (00:03→23:12)
[2016-03-26] MEDS: PEPCID PO SCH ×3 (00:05→23:16)
[2016-03-26] MEDS: MINIPRESS PO SCH ×3 (00:05→22:30)
[2016-03-26] MEDS: HEPARIN SUB-Q SCH ×3 (05:38→23:13)
[2016-03-26] MEDS: APIDRA SUB-Q SCH ×3 (10:24→17:00)
[2016-03-26] MEDS: NACL 0.45% 1000 ML 1,000 ML IV SCH ×4 (10:25→20:10)
[2016-03-26] MEDS: ROCEPHIN/NS 1 GM/50 ML 50 ML IV SCH (10:26)
--- NOTE | 2016-03-26 12:50 | XRay Report ---
KUB: History: Dobbhoff placement. Findings: Tip of the feeding tube is noted in distal stomach. No bowel distention. Impression: Tip of Dobbhoff feeding tube is noted in distal stomach.
[2016-03-26] MEDS: CORDARONE PO SCH (14:12)
[2016-03-26] MEDS: PROCARDIA XL PO SCH (14:12)
[2016-03-26] MEDS ORDERED: NACL 0.45% 500 ML IV ONE (15:45)
[2016-03-26] MEDS ORDERED: VERSED IV ONE ×2 (15:56→15:59)
[2016-03-26] MEDS ORDERED: NACL 0.9% 1000 ML 1,000 ML IV SCH ×2 (16:00→20:00)
[2016-03-26 16:27] LABS: ISTAT Base Excess -2; ISTAT HCO3 21.2; ISTAT PCO2 26.5 (35-45); ISTAT PH 7.511 (7.35-7.45); ISTAT PO2 70 (80-105); ISTAT SO2 96; ISTAT TCO2 22
[2016-03-26] MEDS ORDERED: VASELINE LIP THERAPY TP PRN (16:29)
[2016-03-26] MEDS ORDERED: ARTIFICIAL TEARS OPHTH OINT OU PRN (16:29)
--- NOTE | 2016-03-26 16:31 | Progress Note ---
Assessment and Plan - Patient Problems (1) Acute respiratory failure Current Visit: Yes Status: Acute Plan to address problem: Pt intubated, sedated, place on vesu suppport, pulmonary toilet, daily SBT The high probability of a clinically significant, sudden or life threatening deterioration of the [cardiac, pulmonary, endocrine] system(s) required my full and direct attention, intervention and personal management. The aggregate critical care time was [40] minutes. This time is in addition to time spent performing reported procedures but includes the following: [x] Data Review and interpretation [x] Patient assessment and monitoring of vital signs [x] Documentation [x] Medication orders and management (2) Hypernatremia Current Visit: Yes Status: Acute Plan to address problem: IVF, supportive care, monitor serum sodium, (3) Encephalopathy Current Visit: Yes Status: Acute Plan to address problem: metabolic: continue current care. ivf, supportive care. (4) Acute renal failure Current Visit: Yes Status: Acute Plan to address problem: IVF, supportive care, monitor uop q 4 hrs. (5) Leukocytosis Current Visit: Yes Status: Acute Plan to address problem: continue current care, NO infective source, continue empiric abx. (6) DVT prophylaxis Current Visit: Yes Status: Acute History Interval history: Pt lying in bed. Pt found by nursing staff to have respiratory pauses, hypotensive, and confused. Code MED was called. Pt intubated and placed on vest support. Hospitalist Physical - Constitutional Vitals: Temp Pulse Resp BP Pulse Ox 98.9 F 96 H 20 180/116 100 03/26/16 12:38 03/26/16 12:38 03/26/16 12:38 03/26/16 12:38 03/26/16 10:08 General appearance: Present: mild distress, cachectic, other (frail, chronically ill-appearing, confused) - EENT Eyes: Present: PERRL - Neck Neck: Present: supple - Respiratory Respiratory: bilateral: diminished - Cardiovascular Rhythm: regular Heart Sounds: Present: S1 & S2 - Extremities Extremities: no ischemia Extremity abnormal: edema - Abdominal General gastrointestinal: soft, non-distended - Integumentary Integumentary: Present: clear, dry - Psychiatric Psychiatric: appropriate mood/affect, cooperative - Neurologic Neurologic: CNII-XII intact Results - Labs CBC & Chem 7: 03/25/16 05:56 03/25/16 05:56 Labs: Laboratory Last Values WBC 21.3 K/mm3 (4.5-11.0) H 03/25/16 05:56 RBC 6.32 M/mm3 (3.65-5.03) H 03/25/16 05:56 Hgb 16.7 gm/dl (11.8-15.2) H 03/25/16 05:56 Hct 52.7 % (35.5-45.6) H 03/25/16 05:56 MCV 83 fl (84-94) L 03/25/16 05:56 MCH 27 pg (28-32) L 03/25/16 05:56 MCHC 32 % (32-34) 03/25/16 05:56 RDW 15.1 % (13.2-15.2) 03/25/16 05:56 Plt Count 191 K/mm3 (140-440) 03/25/16 05:56 Lymph % (Auto) 4.5 % (13.4-35.0) L 03/24/16 14:00 [place] % (Auto) 9.5 % (0.0-7.3) H 03/24/16 14:00 Eos % (Auto) 0.0 % (0.0-4.3) 03/24/16 14:00 Baso % (Auto) 0.1 % (0.0-1.8) 03/24/16 14:00 Lymph # 0.9 K/mm3 (1.2-5.4) L 03/24/16 14:00 [place] # 1.9 K/mm3 (0.0-0.8) H 03/24/16 14:00 Eos # 0.0 K/mm3 (0.0-0.4) 03/24/16 14:00 Baso # 0.0 K/mm3 (0.0-0.1) 03/24/16 14:00 Add Manual Diff Complete 03/25/16 05:56 Total Counted 100 03/25/16 05:56 Seg Neutrophils % 85.9 % (40.0-70.0) H 03/24/16 14:00 Seg Neuts % (Manual) 91.0 % (40.0-70.0) H 03/25/16 05:56 Band Neutrophils % 1.0 % 03/25/16 05:56 Lymphocytes % (Manual) 4.0 % (13.4-35.0) L 03/25/16 05:56 Reactive Lymphs % (Man) 0 % 03/25/16 05:56 Monocytes % (Manual) 4.0 % (0.0-7.3) 03/25/16 05:56 Eosinophils % (Manual) 0 % (0.0-4.3) 03/25/16 05:56 Basophils % (Manual) 0 % (0.0-1.8) 03/25/16 05:56 Metamyelocytes % 0 % 03/25/16 05:56 Myelocytes % 0 % 03/25/16 05:56 Promyelocytes % 0 % 03/25/16 05:56 Blast Cells % 0 % 03/25/16 05:56 Nucleated RBC % Not Reportable 03/25/16 05:56 Seg Neutrophils # 17.2 K/mm3 (1.8-7.7) H 03/24/16 14:00 Seg Neutrophils # Man 19.4 K/mm3 (1.8-7.7) H 03/25/16 05:56 Band Neutrophils # 0.2 K/mm3 03/25/16 05:56 Lymphocytes # (Manual) 0.9 K/mm3 (1.2-5.4) L 03/25/16 05:56 Abs React Lymphs (Man) 0.0 K/mm3 03/25/16 05:56 Monocytes # (Manual) 0.9 K/mm3 (0.0-0.8) H 03/25/16 05:56 Eosinophils # (Manual) 0.0 K/mm3 (0.0-0.4) 03/25/16 05:56 Basophils # (Manual) 0.0 K/mm3 (0.0-0.1) 03/25/16 05:56 Metamyelocytes # 0.0 K/mm3 03/25/16 05:56 Myelocytes # 0.0 K/mm3 03/25/16 05:56 Promyelocytes # 0.0 K/mm3 03/25/16 05:56 Blast Cells # 0.0 K/mm3 03/25/16 05:56 WBC Morphology Not Reportable 03/25/16 05:56 Hypersegmented Neuts Not Reportable 03/25/16 05:56 Hyposegmented Neuts Not Reportable 03/25/16 05:56 Hypogranular Neuts Not Reportable 03/25/16 05:56 Smudge Cells Not Reportable 03/25/16 05:56 Toxic Granulation Not Reportable 03/25/16 05:56 Toxic Vacuolation Not Reportable 03/25/16 05:56 Dohle Bodies Not Reportable 03/25/16 05:56 Pelger-Huet Anomaly Not Reportable 03/25/16 05:56 Corina Rods Not Reportable 03/25/16 05:56 Platelet Estimate Appears normal 03/25/16 05:56 Clumped Platelets Not Reportable 03/25/16 05:56 Plt Clumps, EDTA Not Reportable 03/25/16 05:56 Large Platelets Not Reportable 03/25/16 05:56 Giant Platelets Not Reportable 03/25/16 05:56 Platelet Satelliting Not Reportable 03/25/16 05:56 Plt Morphology Comment Not Reportable 03/25/16 05:56 RBC Morphology Normal 03/25/16 05:56 Dimorphic RBCs Not Reportable 03/25/16 05:56 Polychromasia Not Reportable 03/25/16 05:56 Hypochromasia Not Reportable 03/25/16 05:56 Poikilocytosis Not Reportable 03/25/16 05:56 Anisocytosis Not Reportable 03/25/16 05:56 Microcytosis Not Reportable 03/25/16 05:56 Macrocytosis Not Reportable 03/25/16 05:56 Spherocytes Not Reportable 03/25/16 05:56 Pappenheimer Bodies Not Reportable 03/25/16 05:56 Sickle Cells Not Reportable 03/25/16 05:56 Target Cells Not Reportable 03/25/16 05:56 Tear Drop Cells Not Reportable 03/25/16 05:56 Ovalocytes Not Reportable 03/25/16 05:56 Helmet Cells Not Reportable 03/25/16 05:56 Mcgrath-[place] Bodies Not Reportable 03/25/16 05:56 [place] Rings Not Reportable 03/25/16 05:56 Tuan Cells Not Reportable 03/25/16 05:56 Bite Cells Not Reportable 03/25/16 05:56 Crenated Cell Not Reportable 03/25/16 05:56 Elliptocytes Not Reportable 03/25/16 05:56 Acanthocytes (Spur) Not Reportable 03/25/16 05:56 Rouleaux Not Reportable 03/25/16 05:56 Hemoglobin C Crystals Not Reportable 03/25/16 05:56 Schistocytes Not Reportable 03/25/16 05:56 Malaria parasites Not Reportable 03/25/16 05:56 Gideon Bodies Not Reportable 03/25/16 05:56 Hem Pathologist Commnt No 03/25/16 05:56 PT 14.6 Sec. (12.2-14.9) 03/24/16 14:00 INR 1.15 (0.87-1.13) H 03/24/16 14:00 VBG pH 7.418 (7.320-7.420) 03/24/16 14:00 Sodium 172 mmol/L (137-145) H* 03/25/16 05:56 Potassium 3.5 mmol/L (3.6-5.0) L 03/25/16 05:56 Chloride 130.4 mmol/L (98-107) H 03/25/16 05:56 Carbon Dioxide 23 mmol/L (22-30) 03/25/16 05:56 Anion Gap 22 mmol/L 03/25/16 05:56 BUN 29 mg/dL (9-20) H 03/25/16 05:56 Creatinine 1.8 mg/dL (0.8-1.5) H 03/25/16 05:56 Estimated GFR 46 ml/min 03/25/16 05:56 BUN/Creatinine Ratio 16.11 % 03/25/16 05:56 Glucose 187 mg/dL (75-100) H 03/25/16 05:56 POC Glucose 280 (70-105) H 03/26/16 12:38 Hemoglobin A1c 9.6 % (4-6) H 03/24/16 14:00 Lactic Acid 2.8 mmol/L (0.7-2.1) H 03/24/16 15:26 Calcium 9.5 mg/dL (8.4-10.2) 03/25/16 05:56 Total Bilirubin 0.3 mg/dL (0.1-1.2) 03/24/16 14:00 AST 24 units/L (5-40) 03/24/16 14:00 ALT 38 units/L (7-56) 03/24/16 14:00 Alkaline Phosphatase 77 units/L (35-129) 03/24/16 14:00 Lactate Dehydrogenase 460 units/L (91-180) H 03/25/16 05:56 Total Protein 7.4 g/dL (6.3-8.2) 03/24/16 14:00 Albumin 3.5 g/dL (3.9-5) L 03/24/16 14:00 Albumin/Globulin Ratio 0.9 % 03/24/16 14:00 Triglycerides 88 mg/dL (2-149) 03/24/16 17:58 Cholesterol 221 mg/dL (50-199) H 03/24/16 17:58 LDL Cholesterol Direct 146 mg/dL (50-130) H 03/24/16 17:58 HDL Cholesterol 58 mg/dL (40-59) 03/24/16 17:58 Cholesterol/HDL Ratio 3.81 % 03/24/16 17:58 Urine Color Yellow (Yellow) 03/24/16 14:27 Urine Turbidity Clear (Clear) 03/24/16 14:27 Urine pH 5.0 (5.0-7.0) 03/24/16 14:27 Ur Specific [place] 1.017 (1.003-1.030) 03/24/16 14:27 Urine Protein <15 mg/dl mg/dL (Negative) 03/24/16 14:27 Urine Glucose (UA) >=500 mg/dL (Negative) 03/24/16 14:27 Urine Ketones Neg mg/dL (Negative) 03/24/16 14:27 Urine Blood Sm (Negative) 03/24/16 14:27 Urine Nitrite Neg (Negative) 03/24/16 14:27 Urine Bilirubin Neg (Negative) 03/24/16 14:27 Urine Urobilinogen < 2.0 mg/dL (<2.0) 03/24/16 14:27 Ur Leukocyte Esterase Neg (Negative) 03/24/16 14:27 Urine WBC (Auto) 2.0 /HPF (0.0-6.0) 03/24/16 14:27 Urine RBC (Auto) < 1.0 /HPF (0.0-6.0) 03/24/16 14:27 U Epithel Cells (Auto) 4.0 /HPF (0-13.0) 03/24/16 14:27 Hyaline Casts 1 /LPF 03/24/16 14:27 Urine Mucus Few /HPF 03/24/16 14:27 Ketones 1.0 mg/dL (0.2-2.8) 03/24/16 14:00
[2016-03-26] MEDS ORDERED: NACL 0.9% 500 ML IV SCH (17:00)
[2016-03-26 17:20] LABS: BUN/Creatinine Ratio 13.63; Calcium 8.1 mg/dL (8.4-10.2); Chloride 128.5 mmol/L (98-107); Potassium 3.4 mmol/L (3.6-5.0)
[2016-03-26 17:21] LABS: Mean Corpuscular HGB Conc 31 % (32-34); Mean Corpuscular Hemoglobin 26 pg (28-32); Mean Corpuscular Volume 84 fl (84-94); Platelet Count 139 K/mm3 (140-440); Red Blood Count 5.17 M/mm3 (3.65-5.03); Red Cell Distribution Width 15.1 % (13.2-15.2)
[2016-03-26 17:28] LABS: Hematocrit 43.6 % (35.5-45.6); Hemoglobin 13.4 gm/dl (11.8-15.2)
--- NOTE | 2016-03-26 18:07 | Event Note ---
[facility] Central line note Requested by hospitalist Dr. Hernandez and machine umbrella tipper Dr. Mendoza to place a central line. Central line note Consent was obtained by family Location: Right femoral The site was prepped and draped in a sterile fashion Site was anesthetized with lidocaine 1% approximately 3 mL Landmarks identified and needle introduced until return of dark nonpulsatile blood Blood was obtained on first attempt Guidewire introduced using Seldinger technique and triple lumen catheter placed over guidewire There was blood return from all 3 ports Catheter was secured to patient by adhesive The patient tolerated procedure well There were no complications
[2016-03-26] MEDS: NACL 0.9% 1000 ML 2,000 ML IV SCH ×2 (19:00→20:10)
[2016-03-26 19:24] LABS: ISTAT Base Excess -3; ISTAT PCO2 33.9 (35-45); ISTAT PH 7.419 (7.35-7.45); ISTAT PO2 150 (80-105); ISTAT SO2 99; ISTAT TCO2 23
[2016-03-26] MEDS: KCL 20MEQ/100ML 100 ML IV SCH ×3 (20:46→23:43)
[2016-03-27 03:02] LABS: BUN/Creatinine Ratio 14.7; Chloride 126.7 mmol/L (98-107)
[2016-03-27] MEDS: APIDRA SUB-Q SCH ×5 (03:41→23:27)
[2016-03-27] MEDS: LANTUS SUB-Q SCH (03:42)
[2016-03-27] MEDS: NACL 0.45% 1000 ML 1,000 ML IV SCH (06:10)
[2016-03-27] MEDS: HEPARIN SUB-Q SCH ×3 (06:10→23:24)
[2016-03-27] MEDS: D5W 1,000 ML IV SCH ×3 (06:14→23:28)
[2016-03-27 06:51] LABS: ISTAT Base Excess -7; ISTAT HCO3 17.8; ISTAT PCO2 27.3 (35-45); ISTAT PH 7.423 (7.35-7.45); ISTAT PO2 50 (80-105); ISTAT SO2 87; ISTAT TCO2 19
[2016-03-27 06:51] LABS: ISTAT Base Excess -6; ISTAT HCO3 18.8; ISTAT PCO2 30.3 (35-45); ISTAT PH 7.401 (7.35-7.45); ISTAT PO2 112 (80-105); ISTAT SO2 98; ISTAT TCO2 20
[2016-03-27] MEDS: APRESOLINE IV PRN ×2 (08:07→14:13)
[2016-03-27] MEDS: CATAPRES PO SCH ×3 (08:07→23:26)
[2016-03-27] MEDS ORDERED: ARTIFICIAL TEARS OPHTH OINT OU PRN (08:55)
[2016-03-27] MEDS ORDERED: VASELINE LIP THERAPY TP PRN (08:55)
--- NOTE | 2016-03-27 08:58 | XRay Report ---
Single view chest: Compared to 03/24/16. History: ET tube placement. Findings: Cardiomegaly. Stable support system. Tip of endotracheal tube in normal position. No consolidation, pneumothorax or pleural effusion. Impression: Cardiomegaly. No acute lung changes.
[2016-03-27] MEDS ORDERED: VERSED/NS 100MG/100ML 100 ML IV SCH (09:00)
[2016-03-27] MEDS: ZOFRAN IV PRN (09:10)
[2016-03-27] MEDS: ROCEPHIN/NS 1 GM/50 ML 50 ML IV SCH (09:13)
--- NOTE | 2016-03-27 09:19 | XRay Report ---
Single view chest: Compared to 03/26/16. History: Followup of respiratory failure. Findings: Cardiomegaly. Trachea is midline. Stable support system. No consolidation, pneumothorax or pleural effusion. Impression: Cardiomegaly. No acute lung changes.
[2016-03-27 09:36] LABS: Hematocrit 39.5 % (35.5-45.6); Hemoglobin 12.6 gm/dl (11.8-15.2); Mean Corpuscular HGB Conc 32 % (32-34); Mean Corpuscular Hemoglobin 27 pg (28-32); Mean Corpuscular Volume 83 fl (84-94); Platelet Count 113 K/mm3 (140-440); Red Blood Count 4.74 M/mm3 (3.65-5.03); Red Cell Distribution Width 14.7 % (13.2-15.2); White Blood Count 14.2 K/mm3 (4.5-11.0)
[2016-03-27] MEDS: COREG PO SCH ×3 (10:32→23:26)
[2016-03-27] MEDS: MINIPRESS PO SCH ×3 (10:33→23:25)
[2016-03-27] MEDS: PROCARDIA XL PO SCH ×2 (10:34→14:37)
--- NOTE | 2016-03-27 10:34 | XRay Report ---
Single view chest: History: ET tube placement. Findings: Cardiomegaly. Trachea is midline. Tip of endotracheal tube in normal position. No consolidation, pneumothorax or pleural effusion. Impression: Tip of endotracheal tube in normal position. No acute lung changes.
--- NOTE | 2016-03-27 10:56 | Nuclear Medicine Report ---
PERFUSION LUNG SCAN: History: Dyspnea. Findings: After injection of Technetium 99m macroaggregated albumin gamma camera imaging of the lungs in multiple projections demonstrates normal pulmonary contours with a homogeneous distribution of activity. No focal areas of perfusion deficiency are identified. IMPRESSION: Normal study.
[2016-03-27] MEDS ORDERED: SODIUM BICARBONATE FEEDTUBE PRN (11:41)
[2016-03-27] MEDS ORDERED: PANCREAZE DR 10,500 UNIT FEEDTUBE PRN (11:41)
[2016-03-27] MEDS ORDERED: SIMPLE SYRUP FEEDTUBE PRN ×2 (11:41)
--- NOTE | 2016-03-27 12:13 | Progress Note ---
Assessment and Plan Assessment and plan: 1. Acute respiratory failure-continue vent management as per critical care 2. Hyperatremia -we'll start free water via feeding tube. Sodium level is improving. Continue to monitor 3. Metabolic encephalopathy-continue management as discussed above. Corrected electrolytes 4. Acute renal failure secondary to vasomotor nephropathy-renal function is starting to improve. Continue IV fluids for hydration 5. Group B strep UTI-continue IV ceftriaxone 6. Benign hypertension-controlled, continue clonidine patch, Coreg 7. CAD-stable, continue current beta em, statin 8. Seizures-stable, continue Keppra 9. Diabetes type 2 with insulin dependence-continue insulin regime, continue to monitor Accu-Cheks 10. DVT prophylaxis-Lovenox 11. GI prophylaxis-Pepcid History Interval history: f/u respiratory failure; hypernatremia; acute renal failure Patient seen at the bedside; vented; no family present Hospitalist Physical - Constitutional Vitals: Temp Pulse Resp BP Pulse Ox 98.4 F 79 16 114/65 100 03/27/16 08:00 03/27/16 10:00 03/27/16 10:00 03/27/16 10:00 03/27/16 10:00 General appearance: Present: no acute distress (vented) - EENT Eyes: Present: PERRL, EOM intact. Absent: scleral icterus, conjunctival injection ENT: other (ETT in place ) - Neck Neck: Present: supple, normal ROM. Absent: enlarged thyroid, masses or JVD - Respiratory Respiratory effort: normal Respiratory: negative: diminished, rales, rhonchi, wheezing - Cardiovascular Rhythm: regular Heart Sounds: Present: S1 & S2. Absent: gallop - Extremities Extremities: no ischemia, pulses intact, pulses symmetrical, No edema Peripheral Pulses: within normal limits - Abdominal General gastrointestinal: soft, non-tender, non-distended - Integumentary Integumentary: Present: clear - Psychiatric Psychiatric: other (unable to assess) - Neurologic Neurologic: other (PERTL) Results - Labs CBC & Chem 7: 03/27/16 09:20 03/27/16 02:19 Labs: Laboratory Last Values WBC 14.2 K/mm3 (4.5-11.0) H 03/27/16 09:20 RBC 4.74 M/mm3 (3.65-5.03) 03/27/16 09:20 Hgb 12.6 gm/dl (11.8-15.2) 03/27/16 09:20 Hct 39.5 % (35.5-45.6) 03/27/16 09:20 MCV 83 fl (84-94) L 03/27/16 09:20 MCH 27 pg (28-32) L 03/27/16 09:20 MCHC 32 % (32-34) 03/27/16 09:20 RDW 14.7 % (13.2-15.2) 03/27/16 09:20 Plt Count 113 K/mm3 (140-440) L 03/27/16 09:20 Lymph % (Auto) 4.5 % (13.4-35.0) L 03/24/16 14:00 [place] % (Auto) 9.5 % (0.0-7.3) H 03/24/16 14:00 Eos % (Auto) 0.0 % (0.0-4.3) 03/24/16 14:00 Baso % (Auto) 0.1 % (0.0-1.8) 03/24/16 14:00 Lymph # 0.9 K/mm3 (1.2-5.4) L 03/24/16 14:00 [place] # 1.9 K/mm3 (0.0-0.8) H 03/24/16 14:00 Eos # 0.0 K/mm3 (0.0-0.4) 03/24/16 14:00 Baso # 0.0 K/mm3 (0.0-0.1) 03/24/16 14:00 Add Manual Diff Complete 03/25/16 05:56 Total Counted 100 03/25/16 05:56 Seg Neutrophils % 85.9 % (40.0-70.0) H 03/24/16 14:00 Seg Neuts % (Manual) 91.0 % (40.0-70.0) H 03/25/16 05:56 Band Neutrophils % 1.0 % 03/25/16 05:56 Lymphocytes % (Manual) 4.0 % (13.4-35.0) L 03/25/16 05:56 Reactive Lymphs % (Man) 0 % 03/25/16 05:56 Monocytes % (Manual) 4.0 % (0.0-7.3) 03/25/16 05:56 Eosinophils % (Manual) 0 % (0.0-4.3) 03/25/16 05:56 Basophils % (Manual) 0 % (0.0-1.8) 03/25/16 05:56 Metamyelocytes % 0 % 03/25/16 05:56 Myelocytes % 0 % 03/25/16 05:56 Promyelocytes % 0 % 03/25/16 05:56 Blast Cells % 0 % 03/25/16 05:56 Nucleated RBC % Not Reportable 03/25/16 05:56 Seg Neutrophils # 17.2 K/mm3 (1.8-7.7) H 03/24/16 14:00 Seg Neutrophils # Man 19.4 K/mm3 (1.8-7.7) H 03/25/16 05:56 Band Neutrophils # 0.2 K/mm3 03/25/16 05:56 Lymphocytes # (Manual) 0.9 K/mm3 (1.2-5.4) L 03/25/16 05:56 Abs React Lymphs (Man) 0.0 K/mm3 03/25/16 05:56 Monocytes # (Manual) 0.9 K/mm3 (0.0-0.8) H 03/25/16 05:56 Eosinophils # (Manual) 0.0 K/mm3 (0.0-0.4) 03/25/16 05:56 Basophils # (Manual) 0.0 K/mm3 (0.0-0.1) 03/25/16 05:56 Metamyelocytes # 0.0 K/mm3 03/25/16 05:56 Myelocytes # 0.0 K/mm3 03/25/16 05:56 Promyelocytes # 0.0 K/mm3 03/25/16 05:56 Blast Cells # 0.0 K/mm3 03/25/16 05:56 WBC Morphology Not Reportable 03/25/16 05:56 Hypersegmented Neuts Not Reportable 03/25/16 05:56 Hyposegmented Neuts Not Reportable 03/25/16 05:56 Hypogranular Neuts Not Reportable 03/25/16 05:56 Smudge Cells Not Reportable 03/25/16 05:56 Toxic Granulation Not Reportable 03/25/16 05:56 Toxic Vacuolation Not Reportable 03/25/16 05:56 Dohle Bodies Not Reportable 03/25/16 05:56 Pelger-Huet Anomaly Not Reportable 03/25/16 05:56 Corina Rods Not Reportable 03/25/16 05:56 Platelet Estimate Appears normal 03/25/16 05:56 Clumped Platelets Not Reportable 03/25/16 05:56 Plt Clumps, EDTA Not Reportable 03/25/16 05:56 Large Platelets Not Reportable 03/25/16 05:56 Giant Platelets Not Reportable 03/25/16 05:56 Platelet Satelliting Not Reportable 03/25/16 05:56 Plt Morphology Comment Not Reportable 03/25/16 05:56 RBC Morphology Normal 03/25/16 05:56 Dimorphic RBCs Not Reportable 03/25/16 05:56 Polychromasia Not Reportable 03/25/16 05:56 Hypochromasia Not Reportable 03/25/16 05:56 Poikilocytosis Not Reportable 03/25/16 05:56 Anisocytosis Not Reportable 03/25/16 05:56 Microcytosis Not Reportable 03/25/16 05:56 Macrocytosis Not Reportable 03/25/16 05:56 Spherocytes Not Reportable 03/25/16 05:56 Pappenheimer Bodies Not Reportable 03/25/16 05:56 Sickle Cells Not Reportable 03/25/16 05:56 Target Cells Not Reportable 03/25/16 05:56 Tear Drop Cells Not Reportable 03/25/16 05:56 Ovalocytes Not Reportable 03/25/16 05:56 Helmet Cells Not Reportable 03/25/16 05:56 Mcgrath-Hartwick Bodies Not Reportable 03/25/16 05:56 [place] Rings Not Reportable 03/25/16 05:56 [place] Cells Not Reportable 03/25/16 05:56 Bite Cells Not Reportable 03/25/16 05:56 Crenated Cell Not Reportable 03/25/16 05:56 Elliptocytes Not Reportable 03/25/16 05:56 Acanthocytes (Spur) Not Reportable 03/25/16 05:56 Rouleaux Not Reportable 03/25/16 05:56 Hemoglobin C Crystals Not Reportable 03/25/16 05:56 Schistocytes Not Reportable 03/25/16 05:56 Malaria parasites Not Reportable 03/25/16 05:56 Gideon Bodies Not Reportable 03/25/16 05:56 Hem Pathologist Commnt No 03/25/16 05:56 PT 14.6 Sec. (12.2-14.9) 03/24/16 14:00 INR 1.15 (0.87-1.13) H 03/24/16 14:00 POC ABG pH 7.401 (7.35-7.45) 03/27/16 06:02 POC ABG pCO2 30.3 (35-45) L 03/27/16 06:02 POC ABG pO2 112 (80-105) H 03/27/16 06:02 POC ABG HCO3 18.8 03/27/16 06:02 POC ABG Total CO2 20 03/27/16 06:02 POC ABG O2 Sat 98 03/27/16 06:02 POC ABG Base Excess -6 03/27/16 06:02 VBG pH 7.418 (7.320-7.420) 03/24/16 14:00 FiO2 40 % 03/27/16 06:02 Sodium 158 mmol/L (137-145) H 03/27/16 02:19 Potassium 4.0 mmol/L (3.6-5.0) 03/27/16 02:19 Chloride 126.7 mmol/L (98-107) H 03/27/16 02:19 Carbon Dioxide 20 mmol/L (22-30) L 03/27/16 02:19 Anion Gap 15 mmol/L 03/27/16 02:19 BUN 25 mg/dL (9-20) H 03/27/16 02:19 Creatinine 1.7 mg/dL (0.8-1.5) H 03/27/16 02:19 Estimated GFR 50 ml/min 03/27/16 02:19 BUN/Creatinine Ratio 14.70 % 03/27/16 02:19 Glucose 75 mg/dL (75-100) 03/27/16 02:19 POC Glucose 75 (70-105) 03/27/16 00:01 Hemoglobin A1c 9.6 % (4-6) H 03/24/16 14:00 Lactic Acid 2.8 mmol/L (0.7-2.1) H 03/24/16 15:26 Calcium 7.0 mg/dL (8.4-10.2) L 03/27/16 02:19 Total Bilirubin 0.3 mg/dL (0.1-1.2) 03/24/16 14:00 AST 24 units/L (5-40) 03/24/16 14:00 ALT 38 units/L (7-56) 03/24/16 14:00 Alkaline Phosphatase 77 units/L (35-129) 03/24/16 14:00 Lactate Dehydrogenase 460 units/L (91-180) H 03/25/16 05:56 Total Protein 7.4 g/dL (6.3-8.2) 03/24/16 14:00 Albumin 3.5 g/dL (3.9-5) L 03/24/16 14:00 Albumin/Globulin Ratio 0.9 % 03/24/16 14:00 Triglycerides 88 mg/dL (2-149) 03/24/16 17:58 Cholesterol 221 mg/dL (50-199) H 03/24/16 17:58 LDL Cholesterol Direct 146 mg/dL (50-130) H 03/24/16 17:58 HDL Cholesterol 58 mg/dL (40-59) 03/24/16 17:58 Cholesterol/HDL Ratio 3.81 % 03/24/16 17:58 Urine Color Yellow (Yellow) 03/24/16 14:27 Urine Turbidity Clear (Clear) 03/24/16 14:27 Urine pH 5.0 (5.0-7.0) 03/24/16 14:27 Ur Specific [place] 1.017 (1.003-1.030) 03/24/16 14:27 Urine Protein <15 mg/dl mg/dL (Negative) 03/24/16 14:27 Urine Glucose (UA) >=500 mg/dL (Negative) 03/24/16 14:27 Urine Ketones Neg mg/dL (Negative) 03/24/16 14:27 Urine Blood Sm (Negative) 03/24/16 14:27 Urine Nitrite Neg (Negative) 03/24/16 14:27 Urine Bilirubin Neg (Negative) 03/24/16 14:27 Urine Urobilinogen < 2.0 mg/dL (<2.0) 03/24/16 14:27 Ur Leukocyte Esterase Neg (Negative) 03/24/16 14:27 Urine WBC (Auto) 2.0 /HPF (0.0-6.0) 03/24/16 14:27 Urine RBC (Auto) < 1.0 /HPF (0.0-6.0) 03/24/16 14:27 U Epithel Cells (Auto) 4.0 /HPF (0-13.0) 03/24/16 14:27 Hyaline Casts 1 /LPF 03/24/16 14:27 Urine Mucus Few /HPF 03/24/16 14:27 Ketones 1.0 mg/dL (0.2-2.8) 03/24/16 14:00 V/Q scan -normal - Imaging and Cardiology Chest x-ray: report reviewed (ETT in good position; no pleural effusion / consolidation )
[2016-03-27] MEDS: PEPCID PO SCH ×2 (12:45→23:26)
[2016-03-27] MEDS: KEPPRA PO SCH ×2 (12:45→23:25)
[2016-03-27] MEDS: CORDARONE PO SCH (12:45)
--- NOTE | 2016-03-27 14:17 | Consultation ---
History of Present Illness Consult date: 03/27/16 Requesting physician: WATSON MCNAMARA Reason for consult: other (agonal breathing, obtundation) History of present illness: Patient is currently orally intubated and sedated. Called by charge nurse yesterday secondary to code met. Patient found on floor unresponsive and agonal respirations. Intubated on the floor and transitioned to ICU. Hypotensive after receiving all antihypertensive meds yesterday. Central line placed by ED doc. Now this afternoon patient is sedated with versed 2, ABG is good, CXR is clear renal function improving. He is hypertensive and has been given most of his antihypertensive regimen. Remainder is negative. No family at bedside. Past History Past Medical History: CAD, diabetes, hypertension, hyperlipidemia, renal failure , seizures, other (bioprosthetic aortic valve, aortic dissection; obtained per chart review) Past Surgical History: Other (bioprosthetic aortic valve replacement, aortic dissection repair 2; obtained per chart review) Social history: other (unable to obtain due to patient's mental status) Family history: other (unable to obtain due to patient's mental status) Medications and Allergies Allergies Allergy/AdvReac Type Severity Reaction Status Date / Time No Known Allergies Allergy Unverified 05/19/13 09:32 Home Medications Medication Instructions Recorded Confirmed Last Taken Type Amiodarone [Cordarone 200 MG TAB] 200 mg PO DAILY #30 tablet 05/07/15 03/24/16 Unknown Rx AtorvaSTATin [Lipitor] 10 mg PO QHS tablet 05/07/15 03/24/16 Unknown Rx Famotidine [Pepcid] 20 mg PO BID tablet 05/07/15 03/24/16 Unknown Rx Insulin Glargine [Lantus VIAL] 30 units SUB-Q QHS units 05/07/15 03/24/16 Unknown Rx Labetalol [Normodyne TAB] 300 mg PO BID #60 tablet 05/07/15 03/24/16 Unknown Rx QUEtiapine [SEROquel] 25 mg PO BID #60 tablet 05/07/15 03/24/16 Unknown Rx cloNIDine [Catapres] 0.2 mg PO TID #90 tablet 05/07/15 03/24/16 Unknown Rx levETIRAcetam [Keppra TAB] 500 mg PO BID #60 tablet 05/07/15 03/24/16 Unknown Rx metFORMIN [Glucophage] 500 mg PO BID #60 tablet 05/07/15 03/24/16 Unknown Rx Lisinopril [Zestril TAB] 40 mg PO BID 09/23/15 03/24/16 Unknown History NIFEdipine 60 mg PO DAILY 09/23/15 03/24/16 Unknown History Prazosin [Minipress] 5 mg PO BID 09/23/15 03/24/16 Unknown History glipiZIDE [glipiZIDE ER] 5 mg PO QAM 09/23/15 03/24/16 Unknown History Carvedilol [Coreg] 3.125 mg PO BID #60 tablet 09/24/15 03/24/16 Unknown Rx Active Meds: Active Medications Acetaminophen (Tylenol) 650 mg PO Q4H PRN PRN Reason: Pain MILD(1-3)/Fever >100.5/DUVAL Amiodarone HCl (Cordarone) 200 mg PO DAILY [facility] Last Admin: 03/27/16 12:45 Dose: 200 mg Lipase/Protease/Amylase (Pancrecarly Dr 10,500 Unit) 1 each FEEDTUBE PRN PRN PRN Reason: For Clogged Feeding Tube Atorvastatin Calcium (Lipitor) 10 mg PO QHS [facility] Last Admin: 03/27/16 01:00 Dose: 10 mg Bisacodyl (Dulcolax) 10 mg MD QDAY PRN PRN Reason: Constipation unrelieved by MOM Carvedilol (Coreg) 3.125 mg PO BID [facility] Last Admin: 03/27/16 12:45 Dose: 3.125 mg Clonidine HCl (Catapres) 0.2 mg PO TID [facility] Last Admin: 03/27/16 08:07 Dose: 0.2 mg Clonidine HCl (Catapres-Tts Patch) 0.2 mg TD QWEEK [facility] Last Admin: 03/24/16 20:25 Dose: 0.2 mg Dextrose (D50w (25gm)) 50 ml IV PRN PRN PRN Reason: Hypoglycemia Famotidine (Pepcid) 20 mg PO BID [facility] Last Admin: 03/27/16 12:45 Dose: 20 mg Heparin Sodium (Porcine) (Heparin) 5,000 unit SUB-Q Q8HR [facility] Last Admin: 03/27/16 06:10 Dose: 5,000 unit Hydralazine HCl (Apresoline) 20 mg IV Q6H PRN PRN Reason: PRN SBP > 150 Last Admin: 03/27/16 08:07 Dose: 20 mg Hydrophilic Ointment (Vaseline Lip Therapy) 1 applic TP Q2HR PRN PRN Reason: Dry Lips Hydrophilic Ointment (Vaseline Lip Therapy) 1 applic TP Q2HR PRN PRN Reason: Dry Lips Ceftriaxone Sodium (Rocephin/Ns 1 Gm/50 Ml) 50 mls @ 100 mls/hr IV Q24HR ANA LUISA PRN Reason: Protocol Last Admin: 03/27/16 09:13 Dose: 100 mls/hr Sodium Chloride (Nacl 0.9) 2,000 mls @ 999 mls/hr IV DIRECT ANA LUISA Last Admin: 03/26/16 20:10 Dose: 999 mls/hr Sodium Chloride (Nacl 0.9) 1,000 mls @ 999 mls/hr IV DIRECT ANA LUISA Dextrose (D5w) 1,000 mls @ 125 mls/hr IV DIRECT ANA LUISA Last Admin: 03/27/16 06:14 Dose: 125 mls/hr Insulin Glargine (Lantus) 30 units SUB-Q QHS [facility] Last Admin: 03/27/16 03:42 Dose: Not Given Insulin Glulisine (Apidra) 0 units SUB-Q ACHS [facility] PRN Reason: Protocol Last Admin: 03/27/16 14:13 Dose: 3 units Levetiracetam (Keppra) 500 mg PO BID [facility] Last Admin: 03/27/16 12:45 Dose: 500 mg Magnesium Hydroxide (Milk Of Magnesia) 30 ml PO Q4H PRN PRN Reason: Constipation Multi-Ingred Cream/Lotion/Oil/Oint (Artificial Tears Ophth Oint) 1 applic OU Q4HR PRN PRN Reason: Dry Eye(s) Multi-Ingred Cream/Lotion/Oil/Oint (Artificial Tears Ophth Oint) 1 applic OU Q4HR PRN PRN Reason: Dry Eye(s) Nifedipine (Procardia Xl) 60 mg PO QDAY [facility] Last Admin: 03/26/16 14:12 Dose: 60 mg Ondansetron HCl (Zofran) 4 mg IV Q8H PRN PRN Reason: N/V unrelieved by Curtis Last Admin: 03/27/16 09:10 Dose: 4 mg Prazosin HCl (Minipress) 5 mg PO BID [facility] Last Admin: 03/26/16 22:30 Dose: 5 mg Quetiapine Fumarate (Seroquel) 25 mg PO BID [facility] Last Admin: 03/27/16 12:46 Dose: 25 mg Simple Syrup (Simple Syrup) 15 ml FEEDTUBE PRN PRN PRN Reason: Hypoglycemia Simple Syrup (Simple Syrup) 30 ml FEEDTUBE PRN PRN PRN Reason: Hypoglycemia Sodium Bicarbonate (Sodium Bicarbonate) 325 mg FEEDTUBE PRN PRN PRN Reason: For Clogged Feeding Tube Sodium Chloride (Nacl 0.9%) 1 ml IV DIRECT [facility] Review of Systems ROS unobtainable: due to endotracheal tube, due to mental status Physical Examination Vital signs: Vital Signs BP 187/142 03/24/16 13:33 General appearance: no acute distress, comatose Eyes: non-icteric ENT: other (orally intubated and sedated) Neck: supple Effort: normal Ascultation: Bilateral: clear Percussion: Bilateral: not dull Cardiovascular: regular rate and rhythm Gastrointestinal: normoactive bowel sounds, soft, non-tender Results - Laboratory Findings CBC and BMP: 03/27/16 09:20 03/27/16 02:19 ABG POC ABG pH 7.401 (7.35-7.45) 03/27/16 06:02 POC ABG pCO2 30.3 (35-45) L 03/27/16 06:02 POC ABG pO2 112 (80-105) H 03/27/16 06:02 POC ABG HCO3 18.8 03/27/16 06:02 POC ABG Total CO2 20 03/27/16 06:02 POC ABG O2 Sat 98 03/27/16 06:02 PT/INR, D-dimer PT 14.6 Sec. (12.2-14.9) 03/24/16 14:00 INR 1.15 (0.87-1.13) H 03/24/16 14:00 Abnormal lab findings: Abnormal Labs 03/24/16 03/24/16 03/24/16 17:58 20:25 23:23 WBC RBC Hgb Hct MCV MCH MCHC Plt Count Seg Neuts % (Manual) Lymphocytes % (Manual) Seg Neutrophils # Man Lymphocytes # (Manual) Monocytes # (Manual) POC ABG pH POC ABG pCO2 POC ABG pO2 Sodium 169 H* Potassium 3.5 L Chloride 130.3 H Carbon Dioxide BUN 28 H Creatinine 1.8 H Glucose POC Glucose 112 H Calcium Lactate Dehydrogenase Cholesterol 221 H LDL Cholesterol Direct 146 H 03/25/16 03/25/16 03/25/16 05:56 05:56 05:56 WBC 21.3 H RBC 6.32 H Hgb 16.7 H Hct 52.7 H MCV 83 L MCH 27 L MCHC Plt Count Seg Neuts % (Manual) 91.0 H Lymphocytes % (Manual) 4.0 L Seg Neutrophils # Man 19.4 H Lymphocytes # (Manual) 0.9 L Monocytes # (Manual) 0.9 H POC ABG pH POC ABG pCO2 POC ABG pO2 Sodium 172 H* Potassium 3.5 L Chloride 130.4 H Carbon Dioxide BUN 29 H Creatinine 1.8 H Glucose 187 H POC Glucose Calcium Lactate Dehydrogenase 460 H Cholesterol LDL Cholesterol Direct 03/25/16 03/25/16 03/25/16 07:55 12:19 16:41 WBC RBC Hgb Hct MCV MCH MCHC Plt Count Seg Neuts % (Manual) Lymphocytes % (Manual) Seg Neutrophils # Man Lymphocytes # (Manual) Monocytes # (Manual) POC ABG pH POC ABG pCO2 POC ABG pO2 Sodium Potassium Chloride Carbon Dioxide BUN Creatinine Glucose POC Glucose 231 H 314 H 444 H Calcium Lactate Dehydrogenase Cholesterol LDL Cholesterol Direct 03/25/16 03/26/16 03/26/16 22:45 08:32 12:38 WBC RBC Hgb Hct MCV MCH MCHC Plt Count Seg Neuts % (Manual) Lymphocytes % (Manual) Seg Neutrophils # Man Lymphocytes # (Manual) Monocytes # (Manual) POC ABG pH POC ABG pCO2 POC ABG pO2 Sodium Potassium Chloride Carbon Dioxide BUN Creatinine Glucose POC Glucose 326 H 360 H 280 H Calcium Lactate Dehydrogenase Cholesterol LDL Cholesterol Direct 03/26/16 03/26/16 03/26/16 15:33 15:47 16:47 WBC 14.0 H RBC 5.17 H Hgb Hct MCV MCH 26 L MCHC 31 L Plt Count 139 L Seg Neuts % (Manual) Lymphocytes % (Manual) Seg Neutrophils # Man Lymphocytes # (Manual) Monocytes # (Manual) POC ABG pH 7.511 H POC ABG pCO2 26.5 L POC ABG pO2 70 L Sodium Potassium Chloride Carbon Dioxide BUN Creatinine Glucose POC Glucose 174 H Calcium Lactate Dehydrogenase Cholesterol LDL Cholesterol Direct 03/26/16 03/26/16 03/27/16 16:47 18:51 02:19 WBC RBC Hgb Hct MCV MCH MCHC Plt Count Seg Neuts % (Manual) Lymphocytes % (Manual) Seg Neutrophils # Man Lymphocytes # (Manual) Monocytes # (Manual) POC ABG pH POC ABG pCO2 33.9 L POC ABG pO2 150 H Sodium 164 H* 158 H Potassium 3.4 L Chloride 128.5 H 126.7 H Carbon Dioxide 20 L BUN 30 H 25 H Creatinine 2.2 H 1.7 H Glucose 121 H POC Glucose Calcium 8.1 L 7.0 L Lactate Dehydrogenase Cholesterol LDL Cholesterol Direct 03/27/16 03/27/16 03/27/16 05:47 06:02 09:20 WBC 14.2 H RBC Hgb Hct MCV 83 L MCH 27 L MCHC Plt Count 113 L Seg Neuts % (Manual) Lymphocytes % (Manual) Seg Neutrophils # Man Lymphocytes # (Manual) Monocytes # (Manual) POC ABG pH POC ABG pCO2 27.3 L 30.3 L POC ABG pO2 50 L 112 H Sodium Potassium Chloride Carbon Dioxide BUN Creatinine Glucose POC Glucose Calcium Lactate Dehydrogenase Cholesterol LDL Cholesterol Direct Assessment and Plan 61 y/o male with acute encephalopathy, causing acute respiratory failure, etiology of encephalopathy unknown at this time with persistent hypertension and improving renal failure. 1. Stop versed drip. 2. All patient to wake up 3. Will attempt extubation today 4. BP control 5. Primary to address BP meds, patient on several rate controlling meds plus central acting BP meds that in combo could worsen mental state. 6. Add back other BP meds today. Will continue to follow. CCT 31 minutes.
--- NOTE | 2016-03-27 18:07 | Query-Infection ---
"Dear ___MD Joao Date:__03/27/2016 Ict Managers/CDS:____Navya Nowak Phone#:__[phone] Exercise your independent professional judgment when responding to this query. Questions asked do not imply a particular answer is desired or expected. We greatly appreciate your clarification on this issue. Clinical Documentation States: This patient is a 61 y/o M admitted on 03/24/2016 with acute respiratory failure , metabolic encephalopathy, acute renal failure, UTI and benign HTN. Clinical findings show: (please check applicable parameters) Infection, known /suspected, with some of the following indicators; Specify the infection:____Group B Strep. UTI Labs (03/24): WBC:20.1 k/mm3 Segmented neutrophils: 85.9 % Lactic acid: 2.8 mmol/L Vital signs (03/24): HR:124 bpm RR: 41 bpm Medications: Ceftriaxone IV 3 General parameters [ ] Fever (core temp >38.30C or 100.40F) [ ] Hypothermia (core temp <36C) [ ] Heart rate >90 bpm [ ] Tachypnea: >20 bpm or pCO2 < 32 mmHg [ ] Altered mental status [ ] Significant edema / +ve fluid balance (>20 ml/kg 24 h) [ ] Hyperglycemia (Bl. glucose >110 mg/dl) w/o diabetes Inflammatory parameters [ ] Leukocytosis (white blood cell count >12,000/l) [ ] Leukopenia (white blood cell count <4,000/l) [ ] Bandemia (immature WBC > 10%) [ ] Leucocyte Left Shift [ ] Plasma procalcitonin>2 SD above the normal value Hemodynamic and tissue perfusion parameters [ ] Arterial hypotension(SBP <90 mmHg, MAP <70 mmHg,or a SBP drop >40 mmHg in adults) [ ] Hyperlactatemia (>3 mmol/l) [ ] Anion Gap (> 11mEG/l) [ ] Decreased capillary refill or mottling Organ dysfunction parameters [ ] Arterial hypoxemia (PaO2/FIO2 <300) [ ] Creatinine increase =0.5 mg/dl [ ] Acute oliguria (urine output <0.5 ml | kg |h or 45 mM/l for at least 2 hrs) [ ] Coagulation abnormalities (INR >1.5 or activated partial thromboplastin time >60 s) [ ] Ileus (absent maría wel sounds) [ ] Thrombocytopenia (platelet count <100,000/l) [ ] Hyperbilirubinemia (plasma total bilirubin >4 mg/dl) According to the clinical indications above, can Bacteremia be further specified? If so, please indicate below and in your Progress Notes and/ or Discharge Summary. Indicate if the condition was present on admission. PHYSICIAN RESPONSE: [x ] Sepsis [ ] Severe Sepsis [ ] Septic Shock [ ] Septicemia [ ] Sepsis now resolved [ ] SIRS due to non-infectious cause with organ dysfunction [ ] SIRS due to non-infectious cause without organ dysfunction [ ] Other: [ ] Comment/Explanation: Present on Admission: [x ] Yes (Y) [ ] Clinically undeterminable (W) [ ] No (N) [ ] Ruled Out Please also document response in your Progress Notes and/or Discharge Summary and indicate if the condition was present on admission Notes: SIRS/ SIRS WITH ORGAN DYSFUNCTION Systemic inflammatory response syndrome (SIRS) generally refers to the systemic response to trauma/qureshi or other insult such as Acute Myocardial Infarction, Acute Pancreatitis, and Major Surgery with symptoms including fever, tachycardia , tachypnea, and leukocytosis (1). BACTEREMIA Presence of viable bacteria in the circulating blood (2). This term is reserved for patients that do not manifest above SIRS response. SEPTICEMIA Generally refers to a systemic disease associated with the presence of pathological microorganisms or toxins in the blood, which can include bacteria, viruses, fungi or other organisms (1). SEPSIS Generally refers to SIRS due infection (1). SEVERE SEPSIS Generally refers to sepsis associated with acute organ dysfunction (1). SEPTIC SHOCK Generally refers to circulatory failure associated with severe sepsis (2), and defined as hypotension or hypoperfusion despite adequate fluid resuscitation (1 hour) (3). REFERENCES: 1. [employer]/Society of Critical Care Medicine Consensus Conference. Definitions for sepsis and organ failure and guidelines for the use of innovative therapies in sepsis. Critical Care Med 1992;20:864 - 74. 2. Jaison cunningham MM, Gerald MP, Palmer GABRIEL, Judson E, Arun Pillai, Marquez D, Millard J, Clyde SM , Jason JL, Tai G; International Sepsis Definitions Conference. 2001 SCCM/ESICM/ACCP/ATS/SIS International Sepsis Definitions Conference. Intensive Care Med. 2002;29(4):530-8. Epub 2002Jul 27. Review. PubMed [id number] 3. ICD-9-CM Official Guidelines for Coding and Reporting 4. Medscape Drugs, Diseases and Procedures references 5. [employer] Textbook of Internal Medicine. 18th Edition MTDD"
[2016-03-28] MEDS: ZOFRAN IV PRN (00:01)
[2016-03-28] MEDS: LANTUS SUB-Q SCH ×2 (03:35→22:40)
[2016-03-28 05:19] LABS: Basophils % (Auto) 0.3 % (0.0-1.8); Eosinophils % (Auto) 1.1 % (0.0-4.3); Hemoglobin 12.1 gm/dl (11.8-15.2); Mean Corpuscular HGB Conc 32 % (32-34); Mean Corpuscular Hemoglobin 27 pg (28-32); Mean Corpuscular Volume 83 fl (84-94); Platelet Count 106 K/mm3 (140-440); Red Blood Count 4.57 M/mm3 (3.65-5.03); Red Cell Distribution Width 14.6 % (13.2-15.2)
[2016-03-28 05:43] LABS: BUN/Creatinine Ratio 11.42; Blood Urea Nitrogen 16 mg/dL (9-20); Carbon Dioxide 21 mmol/L (22-30); Chloride 112.3 mmol/L (98-107); Glucose 208 mg/dL (75-100); Potassium 3.1 mmol/L (3.6-5.0); Sodium 147 mmol/L (137-145)
[2016-03-28 05:50] LABS: Anion Gap 17 mmol/L
[2016-03-28 06:22] LABS: ISTAT Base Excess -4; ISTAT HCO3 20.5; ISTAT PCO2 29.7 (35-45); ISTAT PH 7.447 (7.35-7.45); ISTAT PO2 95 (80-105); ISTAT SO2 98; ISTAT TCO2 21
[2016-03-28] MEDS: HEPARIN SUB-Q SCH ×3 (06:38→22:42)
[2016-03-28] MEDS: APIDRA SUB-Q SCH ×4 (08:30→22:34)
[2016-03-28] MEDS ORDERED: POTASSIUM CHLORIDE FEEDTUBE NR (08:30)
[2016-03-28] MEDS: D5W 1,000 ML IV SCH (08:31)
[2016-03-28] MEDS: CATAPRES PO SCH ×3 (08:32→20:10)
[2016-03-28 09:32] LABS: Magnesium 1.8 mg/dL (1.7-2.3); Phosphorous 2.2 mg/dL (2.5-4.5)
--- NOTE | 2016-03-28 09:38 | XRay Report ---
AP chest History: Followup respiratory failure. Findings: Lines and support devices remain in good position. No change in cardiomegaly is demonstrated since yesterday's exam. The lungs remain clear. No large pleural effusion or pneumothorax has developed. Impression: No change.
--- NOTE | 2016-03-28 09:48 | Progress Note ---
Assessment and Plan 61 y/o male with acute encephalopathy, causing acute respiratory failure, etiology of encephalopathy unknown at this time with persistent hypertension and improving renal failure. 1. Continue to hold all sedation. 2. Vent support 3. Most likely this is versed that is still metabolizing from sedation. patient was altered on admission and I do not know what his baseline is. Per nursing primary ordering EEG 4. Need to correct electrolytes. Will give K. Needs free water so will start on D5W. Not sure if nursing administered the free water flushes. I spoke to them about this on yesterday. 5. may need sliding scale coverage if not already on this. 6. Will extubate once mental status allows safe protection of airway. Will continue to follow. CCT 31 minutes. Subjective Date of service: 03/28/16 Interval history: Unable to extubate yesterday secondary to mental status. I discontinued all sedative medications. None administered last night. patient not arousable. Breathing over vent and ABG is good. No family at bedside. Hyper natremic and chloremic this am. Renal function is now back to normal. Needs some potassium. Objective Vital Signs - 12hr 03/27/16 03/27/16 03/27/16 21:45 22:00 22:15 Temperature Pulse Rate 81 80 82 Pulse Rate [ From Monitor] Respiratory 20 17 17 Rate Blood Pressure 137/86 137/90 137/90 O2 Sat by Pulse 100 100 Oximetry 03/27/16 03/27/16 03/27/16 22:31 22:37 23:00 Temperature Pulse Rate 82 83 83 Pulse Rate [ From Monitor] Respiratory 19 14 12 Rate Blood Pressure 137/90 137/90 125/95 O2 Sat by Pulse 100 100 100 Oximetry 03/27/16 03/27/16 03/28/16 23:25 23:26 00:00 Temperature 99.4 F Pulse Rate 83 82 89 Pulse Rate [ 99 H From Monitor] Respiratory 20 Rate Blood Pressure 125/95 125/95 127/88 O2 Sat by Pulse 98 Oximetry 03/28/16 03/28/16 03/28/16 00:27 01:00 01:07 Temperature Pulse Rate 92 H 81 100 H Pulse Rate [ From Monitor] Respiratory 21 22 Rate Blood Pressure 121/88 95/68 95/68 O2 Sat by Pulse 98 98 99 Oximetry 03/28/16 03/28/16 03/28/16 02:00 03:00 03:09 Temperature Pulse Rate 93 H 85 86 Pulse Rate [ From Monitor] Respiratory 22 18 15 Rate Blood Pressure 96/65 91/67 91/67 O2 Sat by Pulse 97 100 Oximetry 03/28/16 03/28/16 03/28/16 04:00 05:00 05:39 Temperature 98.5 F Pulse Rate 77 77 77 Pulse Rate [ 75 From Monitor] Respiratory 17 22 Rate Blood Pressure 98/69 104/65 104/65 O2 Sat by Pulse 99 99 Oximetry 03/28/16 03/28/16 03/28/16 06:00 08:00 08:09 Temperature 97.9 F Pulse Rate 73 73 Pulse Rate [ From Monitor] Respiratory 19 Rate Blood Pressure 103/70 119/75 O2 Sat by Pulse 99 Oximetry 03/28/16 03/28/16 08:19 08:32 Temperature Pulse Rate 71 70 Pulse Rate [ From Monitor] Respiratory 18 Rate Blood Pressure 119/75 119/75 O2 Sat by Pulse 99 Oximetry Constitutional: no acute distress, comatose Eyes: non-icteric ENT: other (orally intubated and sedated) Neck: supple Effort: normal Ascultation: Bilateral: clear Percussion: Bilateral: not dull Cardiovascular: regular rate and rhythm Gastrointestinal: normoactive bowel sounds, soft, non-tender CBC and BMP: 03/28/16 05:00 03/28/16 05:00 ABG, PT/INR, D-dimer: ABG POC ABG pH 7.447 (7.35-7.45) 03/28/16 05:14 POC ABG pCO2 29.7 (35-45) L 03/28/16 05:14 POC ABG pO2 95 (80-105) 03/28/16 05:14 POC ABG HCO3 20.5 03/28/16 05:14 POC ABG Total CO2 21 03/28/16 05:14 POC ABG O2 Sat 98 03/28/16 05:14 PT/INR, D-dimer PT 14.6 Sec. (12.2-14.9) 03/24/16 14:00 INR 1.15 (0.87-1.13) H 03/24/16 14:00 Abnormal lab findings: Abnormal Labs 03/24/16 03/24/16 03/24/16 17:58 20:25 23:23 WBC RBC Hgb Hct MCV MCH MCHC Plt Count [place] % (Auto) [place] # Seg Neutrophils % Seg Neuts % (Manual) Lymphocytes % (Manual) Seg Neutrophils # Man Lymphocytes # (Manual) Monocytes # (Manual) POC ABG pH POC ABG pCO2 POC ABG pO2 Sodium 169 H* Potassium 3.5 L Chloride 130.3 H Carbon Dioxide BUN 28 H Creatinine 1.8 H Glucose POC Glucose 112 H Calcium Phosphorus Lactate Dehydrogenase Cholesterol 221 H LDL Cholesterol Direct 146 H 03/25/16 03/25/16 03/25/16 05:56 05:56 05:56 WBC 21.3 H RBC 6.32 H Hgb 16.7 H Hct 52.7 H MCV 83 L MCH 27 L MCHC Plt Count [place] % (Auto) [place] # Seg Neutrophils % Seg Neuts % (Manual) 91.0 H Lymphocytes % (Manual) 4.0 L Seg Neutrophils # Man 19.4 H Lymphocytes # (Manual) 0.9 L Monocytes # (Manual) 0.9 H POC ABG pH POC ABG pCO2 POC ABG pO2 Sodium 172 H* Potassium 3.5 L Chloride 130.4 H Carbon Dioxide BUN 29 H Creatinine 1.8 H Glucose 187 H POC Glucose Calcium Phosphorus Lactate Dehydrogenase 460 H Cholesterol LDL Cholesterol Direct 03/25/16 03/25/16 03/25/16 07:55 12:19 16:41 WBC RBC Hgb Hct MCV MCH MCHC Plt Count [place] % (Auto) [place] # Seg Neutrophils % Seg Neuts % (Manual) Lymphocytes % (Manual) Seg Neutrophils # Man Lymphocytes # (Manual) Monocytes # (Manual) POC ABG pH POC ABG pCO2 POC ABG pO2 Sodium Potassium Chloride Carbon Dioxide BUN Creatinine Glucose POC Glucose 231 H 314 H 444 H Calcium Phosphorus Lactate Dehydrogenase Cholesterol LDL Cholesterol Direct 03/25/16 03/26/16 03/26/16 22:45 08:32 12:38 WBC RBC Hgb Hct MCV MCH MCHC Plt Count [place] % (Auto) [place] # Seg Neutrophils % Seg Neuts % (Manual) Lymphocytes % (Manual) Seg Neutrophils # Man Lymphocytes # (Manual) Monocytes # (Manual) POC ABG pH POC ABG pCO2 POC ABG pO2 Sodium Potassium Chloride Carbon Dioxide BUN Creatinine Glucose POC Glucose 326 H 360 H 280 H Calcium Phosphorus Lactate Dehydrogenase Cholesterol LDL Cholesterol Direct 03/26/16 03/26/16 03/26/16 15:33 15:47 16:47 WBC 14.0 H RBC 5.17 H Hgb Hct MCV MCH 26 L MCHC 31 L Plt Count 139 L [place] % (Auto) [place] # Seg Neutrophils % Seg Neuts % (Manual) Lymphocytes % (Manual) Seg Neutrophils # Man Lymphocytes # (Manual) Monocytes # (Manual) POC ABG pH 7.511 H POC ABG pCO2 26.5 L POC ABG pO2 70 L Sodium Potassium Chloride Carbon Dioxide BUN Creatinine Glucose POC Glucose 174 H Calcium Phosphorus Lactate Dehydrogenase Cholesterol LDL Cholesterol Direct 03/26/16 03/26/16 03/27/16 16:47 18:51 02:19 WBC RBC Hgb Hct MCV MCH MCHC Plt Count [place] % (Auto) [place] # Seg Neutrophils % Seg Neuts % (Manual) Lymphocytes % (Manual) Seg Neutrophils # Man Lymphocytes # (Manual) Monocytes # (Manual) POC ABG pH POC ABG pCO2 33.9 L POC ABG pO2 150 H Sodium 164 H* 158 H Potassium 3.4 L Chloride 128.5 H 126.7 H Carbon Dioxide 20 L BUN 30 H 25 H Creatinine 2.2 H 1.7 H Glucose 121 H POC Glucose Calcium 8.1 L 7.0 L Phosphorus Lactate Dehydrogenase Cholesterol LDL Cholesterol Direct 03/27/16 03/27/16 03/27/16 05:47 06:02 07:51 WBC RBC Hgb Hct MCV MCH MCHC Plt Count [place] % (Auto) [place] # Seg Neutrophils % Seg Neuts % (Manual) Lymphocytes % (Manual) Seg Neutrophils # Man Lymphocytes # (Manual) Monocytes # (Manual) POC ABG pH POC ABG pCO2 27.3 L 30.3 L POC ABG pO2 50 L 112 H Sodium Potassium Chloride Carbon Dioxide BUN Creatinine Glucose POC Glucose 124 H Calcium Phosphorus Lactate Dehydrogenase Cholesterol LDL Cholesterol Direct 03/27/16 03/27/16 03/27/16 09:20 11:45 16:39 WBC 14.2 H RBC Hgb Hct MCV 83 L MCH 27 L MCHC Plt Count 113 L [place] % (Auto) [place] # Seg Neutrophils % Seg Neuts % (Manual) Lymphocytes % (Manual) Seg Neutrophils # Man Lymphocytes # (Manual) Monocytes # (Manual) POC ABG pH POC ABG pCO2 POC ABG pO2 Sodium Potassium Chloride Carbon Dioxide BUN Creatinine Glucose POC Glucose 241 H 266 H Calcium Phosphorus Lactate Dehydrogenase Cholesterol LDL Cholesterol Direct 03/27/16 03/28/16 03/28/16 22:03 03:29 05:00 WBC RBC Hgb Hct MCV 83 L MCH 27 L MCHC Plt Count 106 L [place] % (Auto) 10.1 H [place] # 1.0 H Seg Neutrophils % 75.1 H Seg Neuts % (Manual) Lymphocytes % (Manual) Seg Neutrophils # Man Lymphocytes # (Manual) Monocytes # (Manual) POC ABG pH POC ABG pCO2 POC ABG pO2 Sodium Potassium Chloride Carbon Dioxide BUN Creatinine Glucose POC Glucose 167 H 241 H Calcium Phosphorus Lactate Dehydrogenase Cholesterol LDL Cholesterol Direct 03/28/16 03/28/16 03/28/16 05:00 05:00 05:14 WBC RBC Hgb Hct MCV MCH MCHC Plt Count [place] % (Auto) [place] # Seg Neutrophils % Seg Neuts % (Manual) Lymphocytes % (Manual) Seg Neutrophils # Man Lymphocytes # (Manual) Monocytes # (Manual) POC ABG pH POC ABG pCO2 29.7 L POC ABG pO2 Sodium 147 H D Potassium 3.1 L D Chloride 112.3 H Carbon Dioxide 21 L BUN Creatinine Glucose 208 H POC Glucose Calcium 7.0 L Phosphorus 2.2 L Lactate Dehydrogenase Cholesterol LDL Cholesterol Direct
[2016-03-28] MEDS ORDERED: D5W 2,000 ML IV SCH (10:00)
[2016-03-28] MEDS: CORDARONE PO SCH (10:27)
[2016-03-28] MEDS: ROCEPHIN/NS 1 GM/50 ML 50 ML IV SCH (10:27)
[2016-03-28] MEDS: KEPPRA PO SCH ×2 (10:27→22:40)
[2016-03-28] MEDS: PEPCID PO SCH ×2 (10:27→22:38)
--- NOTE | 2016-03-28 10:27 | Progress Note ---
Assessment and Plan Assessment and plan: 1. Acute respiratory failure-continue vent management as per critical care 2. Hyperatremia -improving; cont free water via feeding tube. Continue to monitor 3. Metabolic encephalopathy-less responsive today; will get CT scan head; EEG; continue management as discussed above. 4. Acute renal failure secondary to vasomotor nephropathy-resolved; Continue IV fluids for hydration 5. Group B strep UTI-continue IV ceftriaxone 6. Benign hypertension-controlled, continue clonidine patch, Coreg 7. CAD-stable, continue current beta em, statin 8. Seizures-stable, continue Keppra 9. Diabetes type 2 with insulin dependence-continue insulin regime, continue to monitor Accu-Cheks 10. Mild hypokelemia- will replace with po supplementation; check magnesium and phosphate 11. DVT prophylaxis-Lovenox 12. GI prophylaxis-Pepcid CCT exclusive of all other billable procedures 31 minutes History Interval history: f/u respiratory failure; hypernatremia; acute renal failure Patient seen at the bedside; vented; no family present; less responsive today Hospitalist Physical - Constitutional Vitals: Temp Pulse Resp BP Pulse Ox 97.9 F 70 14 122/80 99 03/28/16 08:00 03/28/16 09:00 03/28/16 09:00 03/28/16 09:00 03/28/16 08:19 General appearance: Present: no acute distress (vented) - EENT Eyes: Present: PERRL, EOM intact. Absent: scleral icterus, conjunctival injection ENT: hearing intact, clear oral mucosa - Neck Neck: Present: supple, normal ROM. Absent: enlarged thyroid, masses or JVD - Respiratory Respiratory effort: normal Respiratory: negative: diminished, rales, rhonchi, wheezing - Cardiovascular Rhythm: regular Heart Sounds: Present: S1 & S2. Absent: gallop - Extremities Extremities: no ischemia, pulses intact, pulses symmetrical, No edema Peripheral Pulses: within normal limits - Abdominal General gastrointestinal: soft, non-tender, non-distended - Integumentary Integumentary: Present: warm - Psychiatric Psychiatric: other (unable to assess) - Neurologic Neurologic: other (moved the Rt upper extremity to sternal rub; does not open his eyes) Results - Labs CBC & Chem 7: 03/28/16 05:00 03/28/16 05:00 Labs: Laboratory Last Values WBC 10.0 K/mm3 (4.5-11.0) 03/28/16 05:00 RBC 4.57 M/mm3 (3.65-5.03) 03/28/16 05:00 Hgb 12.1 gm/dl (11.8-15.2) 03/28/16 05:00 Hct 38.0 % (35.5-45.6) 03/28/16 05:00 MCV 83 fl (84-94) L 03/28/16 05:00 MCH 27 pg (28-32) L 03/28/16 05:00 MCHC 32 % (32-34) 03/28/16 05:00 RDW 14.6 % (13.2-15.2) 03/28/16 05:00 Plt Count 106 K/mm3 (140-440) L 03/28/16 05:00 Lymph % (Auto) 13.4 % (13.4-35.0) 03/28/16 05:00 [place] % (Auto) 10.1 % (0.0-7.3) H 03/28/16 05:00 Eos % (Auto) 1.1 % (0.0-4.3) 03/28/16 05:00 Baso % (Auto) 0.3 % (0.0-1.8) 03/28/16 05:00 Lymph # 1.3 K/mm3 (1.2-5.4) 03/28/16 05:00 [place] # 1.0 K/mm3 (0.0-0.8) H 03/28/16 05:00 Eos # 0.1 K/mm3 (0.0-0.4) 03/28/16 05:00 Baso # 0.0 K/mm3 (0.0-0.1) 03/28/16 05:00 Add Manual Diff Complete 03/25/16 05:56 Total Counted 100 03/25/16 05:56 Seg Neutrophils % 75.1 % (40.0-70.0) H 03/28/16 05:00 Seg Neuts % (Manual) 91.0 % (40.0-70.0) H 03/25/16 05:56 Band Neutrophils % 1.0 % 03/25/16 05:56 Lymphocytes % (Manual) 4.0 % (13.4-35.0) L 03/25/16 05:56 Reactive Lymphs % (Man) 0 % 03/25/16 05:56 Monocytes % (Manual) 4.0 % (0.0-7.3) 03/25/16 05:56 Eosinophils % (Manual) 0 % (0.0-4.3) 03/25/16 05:56 Basophils % (Manual) 0 % (0.0-1.8) 03/25/16 05:56 Metamyelocytes % 0 % 03/25/16 05:56 Myelocytes % 0 % 03/25/16 05:56 Promyelocytes % 0 % 03/25/16 05:56 Blast Cells % 0 % 03/25/16 05:56 Nucleated RBC % Not Reportable 03/25/16 05:56 Seg Neutrophils # 7.5 K/mm3 (1.8-7.7) 03/28/16 05:00 Seg Neutrophils # Man 19.4 K/mm3 (1.8-7.7) H 03/25/16 05:56 Band Neutrophils # 0.2 K/mm3 03/25/16 05:56 Lymphocytes # (Manual) 0.9 K/mm3 (1.2-5.4) L 03/25/16 05:56 Abs React Lymphs (Man) 0.0 K/mm3 03/25/16 05:56 Monocytes # (Manual) 0.9 K/mm3 (0.0-0.8) H 03/25/16 05:56 Eosinophils # (Manual) 0.0 K/mm3 (0.0-0.4) 03/25/16 05:56 Basophils # (Manual) 0.0 K/mm3 (0.0-0.1) 03/25/16 05:56 Metamyelocytes # 0.0 K/mm3 03/25/16 05:56 Myelocytes # 0.0 K/mm3 03/25/16 05:56 Promyelocytes # 0.0 K/mm3 03/25/16 05:56 Blast Cells # 0.0 K/mm3 03/25/16 05:56 WBC Morphology Not Reportable 03/25/16 05:56 Hypersegmented Neuts Not Reportable 03/25/16 05:56 Hyposegmented Neuts Not Reportable 03/25/16 05:56 Hypogranular Neuts Not Reportable 03/25/16 05:56 Smudge Cells Not Reportable 03/25/16 05:56 Toxic Granulation Not Reportable 03/25/16 05:56 Toxic Vacuolation Not Reportable 03/25/16 05:56 Dohle Bodies Not Reportable 03/25/16 05:56 Pelger-Huet Anomaly Not Reportable 03/25/16 05:56 Corina Rods Not Reportable 03/25/16 05:56 Platelet Estimate Appears normal 03/25/16 05:56 Clumped Platelets Not Reportable 03/25/16 05:56 Plt Clumps, EDTA Not Reportable 03/25/16 05:56 Large Platelets Not Reportable 03/25/16 05:56 Giant Platelets Not Reportable 03/25/16 05:56 Platelet Satelliting Not Reportable 03/25/16 05:56 Plt Morphology Comment Not Reportable 03/25/16 05:56 RBC Morphology Normal 03/25/16 05:56 Dimorphic RBCs Not Reportable 03/25/16 05:56 Polychromasia Not Reportable 03/25/16 05:56 Hypochromasia Not Reportable 03/25/16 05:56 Poikilocytosis Not Reportable 03/25/16 05:56 Anisocytosis Not Reportable 03/25/16 05:56 Microcytosis Not Reportable 03/25/16 05:56 Macrocytosis Not Reportable 03/25/16 05:56 Spherocytes Not Reportable 03/25/16 05:56 Pappenheimer Bodies Not Reportable 03/25/16 05:56 Sickle Cells Not Reportable 03/25/16 05:56 Target Cells Not Reportable 03/25/16 05:56 Tear Drop Cells Not Reportable 03/25/16 05:56 Ovalocytes Not Reportable 03/25/16 05:56 Helmet Cells Not Reportable 03/25/16 05:56 [place] Bodies Not Reportable 03/25/16 05:56 [place] Rings Not Reportable 03/25/16 05:56 [place] Cells Not Reportable 03/25/16 05:56 Bite Cells Not Reportable 03/25/16 05:56 Crenated Cell Not Reportable 03/25/16 05:56 Elliptocytes Not Reportable 03/25/16 05:56 Acanthocytes (Spur) Not Reportable 03/25/16 05:56 Rouleaux Not Reportable 03/25/16 05:56 Hemoglobin C Crystals Not Reportable 03/25/16 05:56 Schistocytes Not Reportable 03/25/16 05:56 Malaria parasites Not Reportable 03/25/16 05:56 [place] Bodies Not Reportable 03/25/16 05:56 Hem Pathologist Commnt No 03/25/16 05:56 PT 14.6 Sec. (12.2-14.9) 03/24/16 14:00 INR 1.15 (0.87-1.13) H 03/24/16 14:00 POC ABG pH 7.447 (7.35-7.45) 03/28/16 05:14 POC ABG pCO2 29.7 (35-45) L 03/28/16 05:14 POC ABG pO2 95 (80-105) 03/28/16 05:14 POC ABG HCO3 20.5 03/28/16 05:14 POC ABG Total CO2 21 03/28/16 05:14 POC ABG O2 Sat 98 03/28/16 05:14 POC ABG Base Excess -4 03/28/16 05:14 VBG pH 7.418 (7.320-7.420) 03/24/16 14:00 FiO2 30 % 03/28/16 05:14 Sodium 147 mmol/L (137-145) H D 03/28/16 05:00 Potassium 3.1 mmol/L (3.6-5.0) L D 03/28/16 05:00 Chloride 112.3 mmol/L (98-107) H 03/28/16 05:00 Carbon Dioxide 21 mmol/L (22-30) L 03/28/16 05:00 Anion Gap 17 mmol/L 03/28/16 05:00 BUN 16 mg/dL (9-20) 03/28/16 05:00 Creatinine 1.4 mg/dL (0.8-1.5) 03/28/16 05:00 Estimated GFR > 60 ml/min 03/28/16 05:00 BUN/Creatinine Ratio 11.42 % 03/28/16 05:00 Glucose 208 mg/dL (75-100) H 03/28/16 05:00 POC Glucose 241 (70-105) H 03/28/16 03:29 Hemoglobin A1c 9.6 % (4-6) H 03/24/16 14:00 Lactic Acid 2.8 mmol/L (0.7-2.1) H 03/24/16 15:26 Calcium 7.0 mg/dL (8.4-10.2) L 03/28/16 05:00 Phosphorus 2.2 mg/dL (2.5-4.5) L 03/28/16 05:00 Magnesium 1.8 mg/dL (1.7-2.3) 03/28/16 05:00 Total Bilirubin 0.3 mg/dL (0.1-1.2) 03/24/16 14:00 AST 24 units/L (5-40) 03/24/16 14:00 ALT 38 units/L (7-56) 03/24/16 14:00 Alkaline Phosphatase 77 units/L (35-129) 03/24/16 14:00 Lactate Dehydrogenase 460 units/L (91-180) H 03/25/16 05:56 Total Protein 7.4 g/dL (6.3-8.2) 03/24/16 14:00 Albumin 3.5 g/dL (3.9-5) L 03/24/16 14:00 Albumin/Globulin Ratio 0.9 % 03/24/16 14:00 Vezy-3-Suuxrakkstlab 2.46 mg/L (<=2.51) 03/25/16 13:00 Triglycerides 88 mg/dL (2-149) 03/24/16 17:58 Cholesterol 221 mg/dL (50-199) H 03/24/16 17:58 LDL Cholesterol Direct 146 mg/dL (50-130) H 03/24/16 17:58 HDL Cholesterol 58 mg/dL (40-59) 03/24/16 17:58 Cholesterol/HDL Ratio 3.81 % 03/24/16 17:58 Urine Color Yellow (Yellow) 03/24/16 14:27 Urine Turbidity Clear (Clear) 03/24/16 14:27 Urine pH 5.0 (5.0-7.0) 03/24/16 14:27 Ur Specific [place] 1.017 (1.003-1.030) 03/24/16 14:27 Urine Protein <15 mg/dl mg/dL (Negative) 03/24/16 14:27 Urine Glucose (UA) >=500 mg/dL (Negative) 03/24/16 14:27 Urine Ketones Neg mg/dL (Negative) 03/24/16 14:27 Urine Blood Sm (Negative) 03/24/16 14:27 Urine Nitrite Neg (Negative) 03/24/16 14:27 Urine Bilirubin Neg (Negative) 03/24/16 14:27 Urine Urobilinogen < 2.0 mg/dL (<2.0) 03/24/16 14:27 Ur Leukocyte Esterase Neg (Negative) 03/24/16 14:27 Urine WBC (Auto) 2.0 /HPF (0.0-6.0) 03/24/16 14:27 Urine RBC (Auto) < 1.0 /HPF (0.0-6.0) 03/24/16 14:27 U Epithel Cells (Auto) 4.0 /HPF (0-13.0) 03/24/16 14:27 Hyaline Casts 1 /LPF 03/24/16 14:27 Urine Mucus Few /HPF 03/24/16 14:27 Ketones 1.0 mg/dL (0.2-2.8) 03/24/16 14:00 - Imaging and Cardiology Chest x-ray: report reviewed (CXR-no pleural effusion or pneumothorax)
[2016-03-28] MEDS: COREG PO SCH ×2 (10:30→23:43)
[2016-03-28] MEDS: MINIPRESS PO SCH ×2 (10:30→23:48)
--- NOTE | 2016-03-28 10:44 | Progress Note ---
Assessment and Plan - Patient Problems (1) Acute renal failure Current Visit: Yes Status: Acute (2) Acute respiratory failure Current Visit: Yes Status: Acute (3) Hypernatremia Current Visit: Yes Status: Acute (4) Diabetes Current Visit: Yes Status: Acute (5) CAD (coronary artery disease) Current Visit: Yes Status: Acute (6) Abnormal EKG Current Visit: Yes Status: Acute Plan to address problem: WILL CHECK FOR COR. ISCHEMIA & RHABDO' (7) Hypokalemia Current Visit: Yes Status: Acute Subjective Date of service: 03/28/16 Interval history: VENT',,,UNRESPONSIVE Objective Vital Signs Temp Pulse Pulse Resp BP Pulse Ox 03/28/16 09:00 70 14 122/80 03/28/16 08:32 70 119/75 03/28/16 08:19 71 18 119/75 99 03/28/16 08:09 73 119/75 99 03/28/16 08:00 97.9 F 72 70 19 119/75 100 03/28/16 07:00 72 19 111/75 03/28/16 06:06 73 18 106/70 99 03/28/16 06:00 73 19 103/70 03/28/16 05:39 77 104/65 99 03/28/16 05:00 77 22 104/65 03/28/16 04:00 98.5 F 77 75 17 98/69 99 03/28/16 03:09 86 15 91/67 100 03/28/16 03:00 85 18 91/67 97 03/28/16 02:00 93 H 22 96/65 03/28/16 01:07 100 H 22 95/68 99 03/28/16 01:00 81 21 95/68 98 03/28/16 00:27 92 H 121/88 98 03/28/16 00:00 99.4 F 89 99 H 20 127/88 98 03/27/16 23:26 82 125/95 03/27/16 23:25 83 125/95 03/27/16 23:00 83 12 125/95 100 03/27/16 22:37 83 14 137/90 100 03/27/16 22:31 82 19 137/90 100 03/27/16 22:15 82 17 137/90 100 03/27/16 22:00 80 17 137/90 03/27/16 21:45 81 20 137/86 100 03/27/16 21:31 82 19 137/86 100 03/27/16 21:15 76 14 137/86 99 03/27/16 21:00 74 76 18 137/86 98 03/27/16 20:45 76 17 129/87 98 03/27/16 20:30 74 16 147/84 98 03/27/16 20:15 74 15 137/87 03/27/16 20:00 98.7 F 76 19 139/92 99 03/27/16 19:45 75 16 142/84 99 03/27/16 19:39 76 147/91 100 03/27/16 19:30 78 12 147/91 99 03/27/16 19:15 77 11 L 141/90 100 03/27/16 19:00 76 18 143/87 98 03/27/16 18:45 75 17 140/92 100 03/27/16 18:30 77 20 129/81 03/27/16 18:15 73 22 119/77 95 03/27/16 18:09 76 20 127/84 99 03/27/16 18:00 76 76 18 127/84 100 03/27/16 17:45 81 18 123/85 100 03/27/16 17:30 79 13 122/83 100 03/27/16 17:15 80 14 122/88 100 03/27/16 17:00 80 13 122/82 03/27/16 16:57 78 11 L 122/82 100 03/27/16 16:45 82 13 125/81 03/27/16 16:31 80 9 L 115/82 100 03/27/16 16:30 79 7 L 115/82 100 03/27/16 16:15 82 15 134/86 99 03/27/16 16:00 99.7 F H 84 18 123/78 03/27/16 15:45 85 19 120/81 03/27/16 15:30 87 18 117/77 100 03/27/16 15:15 84 17 127/80 03/27/16 15:00 85 18 126/80 03/27/16 14:45 85 19 133/81 03/27/16 14:35 86 18 134/90 98 03/27/16 14:30 83 17 134/90 99 03/27/16 14:15 76 18 158/98 100 03/27/16 14:13 78 165/104 03/27/16 14:01 83 20 165/104 99 03/27/16 13:45 75 17 148/96 99 03/27/16 13:30 76 17 151/93 98 03/27/16 13:15 77 17 145/93 03/27/16 13:00 75 16 142/91 03/27/16 12:45 75 13 132/89 03/27/16 12:43 75 141/91 98 03/27/16 12:30 74 15 141/91 99 03/27/16 12:15 72 72 15 137/83 99 03/27/16 12:00 98.1 F 75 17 136/79 98 03/27/16 11:45 74 17 136/79 98 03/27/16 11:30 74 16 133/82 99 03/27/16 11:15 74 12 135/83 99 03/27/16 11:05 71 12 139/87 99 - Physical Examination General: Other (VENT) HEENT: Positive: PERRL Neck: Positive: neck supple Cardiac: Positive: Reg Rate and Rhythm Lungs: Positive: clear to auscultation Abdomen: Positive: Soft Extremities: Present: normal - Labs and Meds CBC 03/28/16 Range/Units 05:00 WBC 10.0 (4.5-11.0) K/mm3 RBC 4.57 (3.65-5.03) M/mm3 Hgb 12.1 (11.8-15.2) gm/dl Hct 38.0 (35.5-45.6) % Plt Count 106 L (140-440) K/mm3 Lymph # 1.3 (1.2-5.4) K/mm3 [place] # 1.0 H (0.0-0.8) K/mm3 Eos # 0.1 (0.0-0.4) K/mm3 Baso # 0.0 (0.0-0.1) K/mm3 Comprehensive Metabolic Panel 03/28/16 Range/Units 05:00 Sodium 147 H D (137-145) mmol/L Potassium 3.1 L D (3.6-5.0) mmol/L Chloride 112.3 H (98-107) mmol/L Carbon Dioxide 21 L (22-30) mmol/L BUN 16 (9-20) mg/dL Creatinine 1.4 (0.8-1.5) mg/dL Glucose 208 H (75-100) mg/dL Calcium 7.0 L (8.4-10.2) mg/dL - Imaging and Cardiology EKG: image reviewed
[2016-03-28 11:09] LABS: ISTAT Base Excess -4; ISTAT HCO3 19.6; ISTAT PCO2 27.7 (35-45); ISTAT PH 7.457 (7.35-7.45); ISTAT PO2 104 (80-105); ISTAT SO2 98; ISTAT TCO2 20
[2016-03-28] MEDS: KCL 20MEQ/100ML 100 ML IV SCH ×3 (11:13→13:33)
[2016-03-28] MEDS: PROCARDIA XL PO SCH (11:45)
--- NOTE | 2016-03-28 13:22 | Consultation ---
HISTORY OF PRESENT ILLNESS: The patient is a 61-year-old gentleman, who presents to the Emergency Room Department with an altered mental status and weakness. He was confused and did not follow commands. Speech was garbled. He has a history of multiple medical problems. Cardiology consult was requested given history of aortic valve replacement and coronary artery disease. No further details of the history in present illness is available. The patient is currently intubated. PAST HISTORY: SURGERIES: Aortic valve replacement, ascending thoracic aortic dissection. SOCIAL HISTORY: Smoking, none. Alcohol, no heavy use described. MEDICATIONS: See the nurse's list. REVIEW OF SYSTEMS: Includes diabetes, seizure disorder, coronary artery disease, which was not severe, psychiatric treatment - diagnosis is unclear from the chart. There is also a description of hyperlipidemia. ALLERGIES: None. It looks like, the aorta has been repaired twice in the past. PHYSICAL EXAMINATION: GENERAL: Well-developed, sedated on mechanical ventilation. HEENT: Eyes, nose, and throat unremarkable. NECK: Reveals no JVD or bruits. Neck is supple, no masses. LUNGS: Coarse breath sounds, no rales or rhonchi. CARDIOVASCULAR: Regular rhythm, S4 gallop. Grade 4 systolic murmur. ABDOMEN: Soft, nontender, no masses. EXTREMITIES: No cyanosis, clubbing, or edema. Peripheral pulses are intact. NEUROLOGIC: Deferred. LABORATORY DATA: EKG sinus tachycardia, LVH, left axis deviation, poor R-wave progression, left atrial abnormality, nonspecific ST-T changes. IMPRESSION: 1. Encephalopathy and respiratory failure, possibly precipitated by metabolic derangement and hypernatremia. Precipitating event is unclear. 2. Acute kidney injury. 3. Hypokalemia. 4. Abnormal EKG; no suggestion of an acute coronary syndrome. 5. History of coronary artery disease. 6. History of aortic valve replacement and aortic dissection repair; there is a light loud murmur. The echo will be repeated. 7. Episode of hypotension, requiring pressors, yesterday. PLAN: Monitor cardiovascular status. Thank you for this consultation. JOB# [id number] JDS/NTS
[2016-03-28] MEDS: PHOS-NAK PO SCH ×3 (13:32→22:36)
[2016-03-28] MEDS ORDERED: K-PHOS NEUTRAL PO SCH (14:00)
[2016-03-28 14:11] LABS: Creatine Kinase 356 units/L (55-170)
[2016-03-28 22:25] LABS: Albumin 3.4 g/dL (3.8-4.8); Gamma Globulin 1.3 g/dL (0.8-1.7)
[2016-03-29] MEDS: D5W 1,000 ML IV SCH (02:38)
[2016-03-29 05:02] LABS: Basophils % (Auto) 0.5 % (0.0-1.8); Eosinophils % (Auto) 1.5 % (0.0-4.3); Hematocrit 35.3 % (35.5-45.6); Hemoglobin 11.5 gm/dl (11.8-15.2); Mean Corpuscular HGB Conc 33 % (32-34); Mean Corpuscular Hemoglobin 26 pg (28-32); Mean Corpuscular Volume 81 fl (84-94); Red Blood Count 4.36 M/mm3 (3.65-5.03); Red Cell Distribution Width 14.5 % (13.2-15.2); White Blood Count 9.1 K/mm3 (4.5-11.0)
[2016-03-29 05:03] LABS: Platelet Count 97 K/mm3 (140-440)
[2016-03-29 05:24] LABS: BUN/Creatinine Ratio 9.16; Blood Urea Nitrogen 11 mg/dL (9-20); Calcium 6.8 mg/dL (8.4-10.2); Carbon Dioxide 20 mmol/L (22-30); Chloride 105.5 mmol/L (98-107); Glucose 386 mg/dL (75-100); Magnesium 1.8 mg/dL (1.7-2.3); Phosphorous 1.6 mg/dL (2.5-4.5); Potassium 3.3 mmol/L (3.6-5.0); Sodium 136 mmol/L (137-145)
[2016-03-29 05:37] LABS: Anion Gap 14 mmol/L
[2016-03-29] MEDS: HEPARIN SUB-Q SCH ×3 (06:29→21:22)
[2016-03-29] MEDS ORDERED: KPHOS 45 MMOL in NACL 0.9% 500 ML 500 ML IV ONE (09:00)
[2016-03-29] MEDS ORDERED: POTASSIUM CHLORIDE FEEDTUBE NR (09:00)
--- NOTE | 2016-03-29 09:04 | XRay Report ---
AP CHEST: HISTORY: Follow-up respiratory failure. FINDINGS: Lines and tubes remain in good position. Cardiomegaly is stable since yesterday's exam. The lungs remain clear. No new acute process. IMPRESSION: No change.
[2016-03-29] MEDS: APIDRA SUB-Q SCH ×4 (09:31→23:00)
[2016-03-29] MEDS: PHOS-NAK PO SCH (09:45)
--- NOTE | 2016-03-29 10:28 | Progress Note ---
Assessment and Plan Assessment and plan: 1. Acute respiratory failure-continue vent management as per critical care 2. Hyperatremia -resolved; d/c D5W; Continue to monitor 3. Metabolic encephalopathy-f/u CT scan head and EEG; continue management as discussed above. 4. Group B strep UTI-continue IV ceftriaxone; wbc normal and afebrile 5. Benign hypertension-controlled, continue clonidine patch, Coreg 7. CAD-stable, continue current beta em, statin 8. Seizures-continue Keppra; f/u EEG 9. Diabetes type 2 with insulin dependence-continue insulin regime, continue to monitor Accu-Cheks 10. Mild hypokelemia- improving; will replace with po supplementation; hypophosphatemia- will replace and monitor 11. DVT prophylaxis-Lovenox 12. GI prophylaxis-Pepcid CCT exclusive of all other billable procedures 33 minutes History Interval history: f/u respiratory failure; hypernatremia; acute renal failure Patient seen at the bedside; vented; no family present; remains unresponsive today; ct hread not yet done Hospitalist Physical - Constitutional Vitals: Temp Pulse Resp BP Pulse Ox 98.9 F 65 17 141/87 100 03/29/16 08:00 03/29/16 07:59 03/29/16 07:59 03/29/16 07:59 03/29/16 07:59 General appearance: Present: other (vented) - EENT Eyes: Present: PERRL. Absent: scleral icterus, conjunctival injection ENT: other (ETT) - Neck Neck: Present: supple, normal ROM. Absent: enlarged thyroid, masses or JVD - Respiratory Respiratory effort: other (vented) Respiratory: bilateral: diminished, negative: rales, rhonchi, wheezing - Cardiovascular Rhythm: regular Heart Sounds: Present: S1 & S2. Absent: gallop - Extremities Extremities: no ischemia, pulses intact, pulses symmetrical Peripheral Pulses: within normal limits - Abdominal General gastrointestinal: soft, non-tender - Integumentary Integumentary: Present: warm - Psychiatric Psychiatric: other (unable to assess) - Neurologic Neurologic: other (does not open eyes to sternal rub; tries to flex upper limbs and lower limbs) Results - Labs CBC & Chem 7: 03/29/16 04:50 03/29/16 04:50 Labs: Laboratory Last Values WBC 9.1 K/mm3 (4.5-11.0) 03/29/16 04:50 RBC 4.36 M/mm3 (3.65-5.03) 03/29/16 04:50 Hgb 11.5 gm/dl (11.8-15.2) L 03/29/16 04:50 Hct 35.3 % (35.5-45.6) L 03/29/16 04:50 MCV 81 fl (84-94) L 03/29/16 04:50 MCH 26 pg (28-32) L 03/29/16 04:50 MCHC 33 % (32-34) 03/29/16 04:50 RDW 14.5 % (13.2-15.2) 03/29/16 04:50 Plt Count 97 K/mm3 (140-440) L 03/29/16 04:50 Lymph % (Auto) 16.5 % (13.4-35.0) 03/29/16 04:50 [place] % (Auto) 11.7 % (0.0-7.3) H 03/29/16 04:50 Eos % (Auto) 1.5 % (0.0-4.3) 03/29/16 04:50 Baso % (Auto) 0.5 % (0.0-1.8) 03/29/16 04:50 Lymph # 1.5 K/mm3 (1.2-5.4) 03/29/16 04:50 [place] # 1.1 K/mm3 (0.0-0.8) H 03/29/16 04:50 Eos # 0.1 K/mm3 (0.0-0.4) 03/29/16 04:50 Baso # 0.0 K/mm3 (0.0-0.1) 03/29/16 04:50 Add Manual Diff Complete 03/25/16 05:56 Total Counted 100 03/25/16 05:56 Seg Neutrophils % 69.8 % (40.0-70.0) 03/29/16 04:50 Seg Neuts % (Manual) 91.0 % (40.0-70.0) H 03/25/16 05:56 Band Neutrophils % 1.0 % 03/25/16 05:56 Lymphocytes % (Manual) 4.0 % (13.4-35.0) L 03/25/16 05:56 Reactive Lymphs % (Man) 0 % 03/25/16 05:56 Monocytes % (Manual) 4.0 % (0.0-7.3) 03/25/16 05:56 Eosinophils % (Manual) 0 % (0.0-4.3) 03/25/16 05:56 Basophils % (Manual) 0 % (0.0-1.8) 03/25/16 05:56 Metamyelocytes % 0 % 03/25/16 05:56 Myelocytes % 0 % 03/25/16 05:56 Promyelocytes % 0 % 03/25/16 05:56 Blast Cells % 0 % 03/25/16 05:56 Nucleated RBC % Not Reportable 03/25/16 05:56 Seg Neutrophils # 6.3 K/mm3 (1.8-7.7) 03/29/16 04:50 Seg Neutrophils # Man 19.4 K/mm3 (1.8-7.7) H 03/25/16 05:56 Band Neutrophils # 0.2 K/mm3 03/25/16 05:56 Lymphocytes # (Manual) 0.9 K/mm3 (1.2-5.4) L 03/25/16 05:56 Abs React Lymphs (Man) 0.0 K/mm3 03/25/16 05:56 Monocytes # (Manual) 0.9 K/mm3 (0.0-0.8) H 03/25/16 05:56 Eosinophils # (Manual) 0.0 K/mm3 (0.0-0.4) 03/25/16 05:56 Basophils # (Manual) 0.0 K/mm3 (0.0-0.1) 03/25/16 05:56 Metamyelocytes # 0.0 K/mm3 03/25/16 05:56 Myelocytes # 0.0 K/mm3 03/25/16 05:56 Promyelocytes # 0.0 K/mm3 03/25/16 05:56 Blast Cells # 0.0 K/mm3 03/25/16 05:56 WBC Morphology Not Reportable 03/25/16 05:56 Hypersegmented Neuts Not Reportable 03/25/16 05:56 Hyposegmented Neuts Not Reportable 03/25/16 05:56 Hypogranular Neuts Not Reportable 03/25/16 05:56 Smudge Cells Not Reportable 03/25/16 05:56 Toxic Granulation Not Reportable 03/25/16 05:56 Toxic Vacuolation Not Reportable 03/25/16 05:56 Dohle Bodies Not Reportable 03/25/16 05:56 Pelger-Huet Anomaly Not Reportable 03/25/16 05:56 Corina Rods Not Reportable 03/25/16 05:56 Platelet Estimate Appears normal 03/25/16 05:56 Clumped Platelets Not Reportable 03/25/16 05:56 Plt Clumps, EDTA Not Reportable 03/25/16 05:56 Large Platelets Not Reportable 03/25/16 05:56 Giant Platelets Not Reportable 03/25/16 05:56 Platelet Satelliting Not Reportable 03/25/16 05:56 Plt Morphology Comment Not Reportable 03/25/16 05:56 RBC Morphology Normal 03/25/16 05:56 Dimorphic RBCs Not Reportable 03/25/16 05:56 Polychromasia Not Reportable 03/25/16 05:56 Hypochromasia Not Reportable 03/25/16 05:56 Poikilocytosis Not Reportable 03/25/16 05:56 Anisocytosis Not Reportable 03/25/16 05:56 Microcytosis Not Reportable 03/25/16 05:56 Macrocytosis Not Reportable 03/25/16 05:56 Spherocytes Not Reportable 03/25/16 05:56 Pappenheimer Bodies Not Reportable 03/25/16 05:56 Sickle Cells Not Reportable 03/25/16 05:56 Target Cells Not Reportable 03/25/16 05:56 Tear Drop Cells Not Reportable 03/25/16 05:56 Ovalocytes Not Reportable 03/25/16 05:56 Helmet Cells Not Reportable 03/25/16 05:56 Mcgrath-Kismet Bodies Not Reportable 03/25/16 05:56 Thomson Rings Not Reportable 03/25/16 05:56 [place] Cells Not Reportable 03/25/16 05:56 Bite Cells Not Reportable 03/25/16 05:56 Crenated Cell Not Reportable 03/25/16 05:56 Elliptocytes Not Reportable 03/25/16 05:56 Acanthocytes (Spur) Not Reportable 03/25/16 05:56 Rouleaux Not Reportable 03/25/16 05:56 Hemoglobin C Crystals Not Reportable 03/25/16 05:56 Schistocytes Not Reportable 03/25/16 05:56 Malaria parasites Not Reportable 03/25/16 05:56 Gideon Bodies Not Reportable 03/25/16 05:56 Hem Pathologist Commnt No 03/25/16 05:56 PT 14.6 Sec. (12.2-14.9) 03/24/16 14:00 INR 1.15 (0.87-1.13) H 03/24/16 14:00 POC ABG pH 7.457 (7.35-7.45) H 03/28/16 10:56 POC ABG pCO2 27.7 (35-45) L 03/28/16 10:56 POC ABG pO2 104 (80-105) 03/28/16 10:56 POC ABG HCO3 19.6 03/28/16 10:56 POC ABG Total CO2 20 03/28/16 10:56 POC ABG O2 Sat 98 03/28/16 10:56 POC ABG Base Excess -4 03/28/16 10:56 VBG pH 7.418 (7.320-7.420) 03/24/16 14:00 FiO2 30 % 03/28/16 10:56 Sodium 136 mmol/L (137-145) L D 03/29/16 04:50 Potassium 3.3 mmol/L (3.6-5.0) L 03/29/16 04:50 Chloride 105.5 mmol/L (98-107) 03/29/16 04:50 Carbon Dioxide 20 mmol/L (22-30) L 03/29/16 04:50 Anion Gap 14 mmol/L 03/29/16 04:50 BUN 11 mg/dL (9-20) 03/29/16 04:50 Creatinine 1.2 mg/dL (0.8-1.5) 03/29/16 04:50 Estimated GFR > 60 ml/min 03/29/16 04:50 BUN/Creatinine Ratio 9.16 % 03/29/16 04:50 Glucose 386 mg/dL (75-100) H 03/29/16 04:50 POC Glucose 188 (70-105) H 03/28/16 21:48 Hemoglobin A1c 9.6 % (4-6) H 03/24/16 14:00 Lactic Acid 2.8 mmol/L (0.7-2.1) H 03/24/16 15:26 Calcium 6.8 mg/dL (8.4-10.2) L 03/29/16 04:50 Phosphorus 1.6 mg/dL (2.5-4.5) L D 03/29/16 04:50 Magnesium 1.8 mg/dL (1.7-2.3) 03/29/16 04:50 Total Bilirubin 0.3 mg/dL (0.1-1.2) 03/24/16 14:00 AST 24 units/L (5-40) 03/24/16 14:00 ALT 38 units/L (7-56) 03/24/16 14:00 Alkaline Phosphatase 77 units/L (35-129) 03/24/16 14:00 Lactate Dehydrogenase 460 units/L (91-180) H 03/25/16 05:56 Total Creatine Kinase 356 units/L (55-170) H 03/28/16 13:29 Troponin T < 0.010 ng/mL (0.00-0.029) 03/28/16 13:29 Serum Total Protein 7.1 g/dL (6.1-8.1) 03/25/16 13:00 Total Protein 7.4 g/dL (6.3-8.2) 03/24/16 14:00 Albumin 3.4 g/dL (3.8-4.8) L 03/25/16 13:00 Albumin/Globulin Ratio 0.9 % 03/24/16 14:00 Smccr-5-Cxymgvipd 0.4 g/dL (0.2-0.3) H 03/25/16 13:00 Snblt-5-Ciuxtkfuf 1.1 g/dL (0.5-0.9) H 03/25/16 13:00 Beta Globulins 0.6 g/dL (0.2-0.5) H 03/25/16 13:00 Mymm-9-Qnkangbnkriub 2.46 mg/L (<=2.51) 03/25/16 13:00 Gamma Globulins 1.3 g/dL (0.8-1.7) 03/25/16 13:00 Abnorm Protein Band 1 see below (()) 03/25/16 13:00 PEP Interpretation see below (()) H 03/25/16 13:00 Triglycerides 88 mg/dL (2-149) 03/24/16 17:58 Cholesterol 221 mg/dL (50-199) H 03/24/16 17:58 LDL Cholesterol Direct 146 mg/dL (50-130) H 03/24/16 17:58 HDL Cholesterol 58 mg/dL (40-59) 03/24/16 17:58 Cholesterol/HDL Ratio 3.81 % 03/24/16 17:58 Urine Color Yellow (Yellow) 03/24/16 14:27 Urine Turbidity Clear (Clear) 03/24/16 14:27 Urine pH 5.0 (5.0-7.0) 03/24/16 14:27 Ur Specific [place] 1.017 (1.003-1.030) 03/24/16 14:27 Urine Protein <15 mg/dl mg/dL (Negative) 03/24/16 14:27 Urine Glucose (UA) >=500 mg/dL (Negative) 03/24/16 14:27 Urine Ketones Neg mg/dL (Negative) 03/24/16 14:27 Urine Blood Sm (Negative) 03/24/16 14:27 Urine Nitrite Neg (Negative) 03/24/16 14:27 Urine Bilirubin Neg (Negative) 03/24/16 14:27 Urine Urobilinogen < 2.0 mg/dL (<2.0) 03/24/16 14:27 Ur Leukocyte Esterase Neg (Negative) 03/24/16 14:27 Urine WBC (Auto) 2.0 /HPF (0.0-6.0) 03/24/16 14:27 Urine RBC (Auto) < 1.0 /HPF (0.0-6.0) 03/24/16 14:27 U Epithel Cells (Auto) 4.0 /HPF (0-13.0) 03/24/16 14:27 Hyaline Casts 1 /LPF 03/24/16 14:27 Urine Mucus Few /HPF 03/24/16 14:27 Ketones 1.0 mg/dL (0.2-2.8) 03/24/16 14:00 Microbiology 03/27/16 Unknown Tracheal Aspirate Sputum Culture - Final 03/24/16 14:00 Peripheral/Venous Blood Culture - Preliminary NO GROWTH AFTER 4 DAYS 03/24/16 14:13 Peripheral/Venous Blood Culture - Preliminary NO GROWTH AFTER 4 DAYS 03/26/16 18:00 Tracheal Aspirate Sputum Culture - Final 03/24/16 14:27 Urine,Catheterized - Indwelling Catheter Urine Culture - Final Beta Hemolytic Strep Group B
[2016-03-29] MEDS: CATAPRES PO SCH (10:35)
[2016-03-29] MEDS: PROCARDIA XL PO SCH (10:35)
[2016-03-29] MEDS: PEPCID PO SCH ×2 (10:36→21:23)
[2016-03-29] MEDS: KEPPRA PO SCH ×2 (10:36→21:22)
[2016-03-29] MEDS: COREG PO SCH (10:36)
[2016-03-29] MEDS: MINIPRESS PO SCH (10:37)
[2016-03-29] MEDS: CORDARONE PO SCH (10:38)
[2016-03-29] MEDS: ROCEPHIN/NS 1 GM/50 ML 50 ML IV SCH (10:39)
--- NOTE | 2016-03-29 10:42 | Progress Note ---
Addendum entered and electronically signed by MASOOD HAWLEY MD 03/29/16 18:55 : Continue supportive management, stable cardiac status. Original Note: Assessment and Plan Altered mental status Acute respiratory failure no evidence of PE by V\Q scan Abnormal ECG no significant CAD by C 08/2015 Hx of aortic dissection s/p repair Hx of bioprosthetic aortic valve replacement normal function on echo 08/2015 Hypertension Echo results pending. Subjective Date of service: 03/29/16 Interval history: Remains on the vent Objective Vital Signs Temp Pulse Pulse Resp BP Pulse Ox 03/29/16 08:00 98.9 F 03/29/16 07:59 65 17 141/87 100 03/29/16 06:17 63 19 141/87 99 03/29/16 06:00 64 14 141/87 03/29/16 05:00 65 10 L 141/91 99 03/29/16 04:38 66 132/82 100 03/29/16 04:00 99.1 F 65 17 132/82 100 03/29/16 03:00 65 15 123/79 100 03/29/16 02:37 65 17 130/84 100 03/29/16 02:00 65 14 130/84 100 03/29/16 01:00 66 13 121/78 100 03/29/16 00:01 65 19 143/85 100 03/29/16 00:00 100.0 F H 65 20 143/85 100 03/28/16 23:48 66 141/84 100 03/28/16 23:45 100.0 F H 03/28/16 23:43 66 141/84 03/28/16 23:00 66 20 141/84 100 03/28/16 22:00 68 15 111/74 100 03/28/16 21:29 69 16 140/85 100 03/28/16 21:27 70 19 140/85 100 03/28/16 21:00 68 17 140/85 100 03/28/16 20:56 68 130/82 100 03/28/16 20:00 99.0 F 70 10 L 130/82 100 03/28/16 19:30 99.0 F 03/28/16 19:00 68 19 120/78 99 03/28/16 18:05 72 16 119/80 100 03/28/16 18:00 70 11 L 119/80 100 03/28/16 17:00 72 18 105/66 100 03/28/16 16:39 73 22 116/72 100 03/28/16 16:24 73 116/72 100 03/28/16 16:20 70 19 100 03/28/16 16:00 100.7 F H 73 21 116/72 100 03/28/16 15:21 73 17 114/77 100 03/28/16 15:00 72 13 114/77 100 03/28/16 14:21 75 13 123/83 100 03/28/16 14:19 73 123/83 100 03/28/16 14:00 71 17 123/83 100 03/28/16 13:40 70 130/84 03/28/16 13:00 89 18 130/84 100 03/28/16 12:25 70 16 98 03/28/16 12:00 99 F 71 9 L 136/85 100 03/28/16 11:00 69 9 L 123/84 100 03/28/16 10:41 70 20 123/80 100 - Physical Examination General: Other (VENT) Cardiac: Positive: Reg Rate and Rhythm - Labs and Meds CBC 03/29/16 Range/Units 04:50 WBC 9.1 (4.5-11.0) K/mm3 RBC 4.36 (3.65-5.03) M/mm3 Hgb 11.5 L (11.8-15.2) gm/dl Hct 35.3 L (35.5-45.6) % Plt Count 97 L (140-440) K/mm3 Lymph # 1.5 (1.2-5.4) K/mm3 [place] # 1.1 H (0.0-0.8) K/mm3 Eos # 0.1 (0.0-0.4) K/mm3 Baso # 0.0 (0.0-0.1) K/mm3 Comprehensive Metabolic Panel 03/25/16 03/29/16 Range/Units 13:00 04:50 Sodium 136 L D (137-145) mmol/L Potassium 3.3 L (3.6-5.0) mmol/L Chloride 105.5 (98-107) mmol/L Carbon Dioxide 20 L (22-30) mmol/L BUN 11 (9-20) mg/dL Creatinine 1.2 (0.8-1.5) mg/dL Glucose 386 H (75-100) mg/dL Calcium 6.8 L (8.4-10.2) mg/dL Albumin 3.4 L (3.8-4.8) g/dL - Imaging and Cardiology EKG: image reviewed
--- NOTE | 2016-03-29 12:50 | Progress Note ---
Assessment and Plan Acute respiratory failure. ABGs appear to be adequate, might tolerate spontaneous breathing trial but neurological status is still an issue. AMS. I still have problem with clearing medications but further evaluation might be needed if persistent. Neurological exam is grossly nonfocal Recommendations If more responsive, initiate spontaneous breathing trial And taken off sedation Extubation precautions if the patient becomes more responsive If no additional neurological improvement, consider neurology consult and update brain CT scan evaluation 31 minutes critical care time Subjective Date of service: 03/29/16 Interval history: Still slow to respond despite no sedation. No chest congestion reported Objective Vital Signs - 12hr 03/29/16 03/29/16 03/29/16 01:00 02:00 02:37 Temperature Pulse Rate 66 65 65 Respiratory 13 14 17 Rate Blood Pressure 121/78 130/84 130/84 O2 Sat by Pulse 100 100 100 Oximetry 03/29/16 03/29/16 03/29/16 03:00 04:00 04:38 Temperature 99.1 F Pulse Rate 65 65 66 Respiratory 15 17 Rate Blood Pressure 123/79 132/82 132/82 O2 Sat by Pulse 100 100 100 Oximetry 03/29/16 03/29/16 03/29/16 05:00 06:00 06:17 Temperature Pulse Rate 65 64 63 Respiratory 10 L 14 19 Rate Blood Pressure 141/91 141/87 141/87 O2 Sat by Pulse 99 99 Oximetry 03/29/16 03/29/16 03/29/16 07:59 08:00 09:00 Temperature 98.9 F Pulse Rate 65 75 Respiratory 17 Rate Blood Pressure 141/87 O2 Sat by Pulse 100 Oximetry 03/29/16 03/29/16 03/29/16 10:35 10:36 10:37 Temperature Pulse Rate 70 71 70 Respiratory Rate Blood Pressure 154/95 154/85 154/95 O2 Sat by Pulse Oximetry Constitutional: no acute distress, other (deeply lethargic) Eyes: non-icteric ENT: other (orally intubated and sedated) Neck: supple Effort: normal Ascultation: Bilateral: clear Percussion: Bilateral: not dull Cardiovascular: regular rate and rhythm Gastrointestinal: normoactive bowel sounds, soft, non-tender Neurologic: other (R ASS of -1) CBC and BMP: 03/29/16 04:50 03/29/16 04:50 ABG, PT/INR, D-dimer: ABG POC ABG pH 7.457 (7.35-7.45) H 03/28/16 10:56 POC ABG pCO2 27.7 (35-45) L 03/28/16 10:56 POC ABG pO2 104 (80-105) 03/28/16 10:56 POC ABG HCO3 19.6 03/28/16 10:56 POC ABG Total CO2 20 03/28/16 10:56 POC ABG O2 Sat 98 03/28/16 10:56 PT/INR, D-dimer PT 14.6 Sec. (12.2-14.9) 03/24/16 14:00 INR 1.15 (0.87-1.13) H 03/24/16 14:00 Abnormal lab findings: Abnormal Labs 03/24/16 03/24/16 03/24/16 17:58 20:25 23:23 WBC RBC Hgb Hct MCV MCH MCHC Plt Count [place] % (Auto) [place] # Seg Neutrophils % Seg Neuts % (Manual) Lymphocytes % (Manual) Seg Neutrophils # Man Lymphocytes # (Manual) Monocytes # (Manual) POC ABG pH POC ABG pCO2 POC ABG pO2 Sodium 169 H* Potassium 3.5 L Chloride 130.3 H Carbon Dioxide BUN 28 H Creatinine 1.8 H Glucose POC Glucose 112 H Calcium Phosphorus Lactate Dehydrogenase Total Creatine Kinase Albumin Cvoug-3-Woiglcqwb Kahta-8-Ijbrczcne Beta Globulins PEP Interpretation Cholesterol 221 H LDL Cholesterol Direct 146 H 03/25/16 03/25/16 03/25/16 05:56 05:56 05:56 WBC 21.3 H RBC 6.32 H Hgb 16.7 H Hct 52.7 H MCV 83 L MCH 27 L MCHC Plt Count [place] % (Auto) [place] # Seg Neutrophils % Seg Neuts % (Manual) 91.0 H Lymphocytes % (Manual) 4.0 L Seg Neutrophils # Man 19.4 H Lymphocytes # (Manual) 0.9 L Monocytes # (Manual) 0.9 H POC ABG pH POC ABG pCO2 POC ABG pO2 Sodium 172 H* Potassium 3.5 L Chloride 130.4 H Carbon Dioxide BUN 29 H Creatinine 1.8 H Glucose 187 H POC Glucose Calcium Phosphorus Lactate Dehydrogenase 460 H Total Creatine Kinase Albumin Umwuj-3-Pvtliieja Iwiiq-3-Lnamrkxal Beta Globulins PEP Interpretation Cholesterol LDL Cholesterol Direct 03/25/16 03/25/1603/25/16 07:55 12:19 13:00 WBC RBC Hgb Hct MCV MCH MCHC Plt Count [place] % (Auto) [place] # Seg Neutrophils % Seg Neuts % (Manual) Lymphocytes % (Manual) Seg Neutrophils # Man Lymphocytes # (Manual) Monocytes # (Manual) POC ABG pH POC ABG pCO2 POC ABG pO2 Sodium Potassium Chloride Carbon Dioxide BUN Creatinine Glucose POC Glucose 231 H 314 H Calcium Phosphorus Lactate Dehydrogenase Total Creatine Kinase Albumin 3.4 L Wsjqp-2-Akxffqvhj 0.4 H Znwwh-7-Mxmyisasz 1.1 H Beta Globulins 0.6 H PEP Interpretation see below H Cholesterol LDL Cholesterol Direct 03/25/16 03/25/16 03/26/16 16:41 22:45 08:32 WBC RBC Hgb Hct MCV MCH MCHC Plt Count [place] % (Auto) [place] # Seg Neutrophils % Seg Neuts % (Manual) Lymphocytes % (Manual) Seg Neutrophils # Man Lymphocytes # (Manual) Monocytes # (Manual) POC ABG pH POC ABG pCO2 POC ABG pO2 Sodium Potassium Chloride Carbon Dioxide BUN Creatinine Glucose POC Glucose 444 H 326 H 360 H Calcium Phosphorus Lactate Dehydrogenase Total Creatine Kinase Albumin Cxfrv-1-Debkvwqzc Flkmv-0-Zvzhgwspf Beta Globulins PEP Interpretation Cholesterol LDL Cholesterol Direct 03/26/16 03/26/16 03/26/16 12:38 15:33 15:47 WBC RBC Hgb Hct MCV MCH MCHC Plt Count [place] % (Auto) [place] # Seg Neutrophils % Seg Neuts % (Manual) Lymphocytes % (Manual) Seg Neutrophils # Man Lymphocytes # (Manual) Monocytes # (Manual) POC ABG pH 7.511 H POC ABG pCO2 26.5 L POC ABG pO2 70 L Sodium Potassium Chloride Carbon Dioxide BUN Creatinine Glucose POC Glucose 280 H 174 H Calcium Phosphorus Lactate Dehydrogenase Total Creatine Kinase Albumin Ordno-6-Mhvtnergf Bjiea-5-Nprcnevsl Beta Globulins PEP Interpretation Cholesterol LDL Cholesterol Direct 03/26/16 03/26/16 03/26/16 16:47 16:47 18:51 WBC 14.0 H RBC 5.17 H Hgb Hct MCV MCH 26 L MCHC 31 L Plt Count 139 L [place] % (Auto) [place] # Seg Neutrophils % Seg Neuts % (Manual) Lymphocytes % (Manual) Seg Neutrophils # Man Lymphocytes # (Manual) Monocytes # (Manual) POC ABG pH POC ABG pCO2 33.9 L POC ABG pO2 150 H Sodium 164 H* Potassium 3.4 L Chloride 128.5 H Carbon Dioxide BUN 30 H Creatinine 2.2 H Glucose 121 H POC Glucose Calcium 8.1 L Phosphorus Lactate Dehydrogenase Total Creatine Kinase Albumin Kgzbd-0-Zedgoafky Ctxsj-3-Ysxovcvff Beta Globulins PEP Interpretation Cholesterol LDL Cholesterol Direct 03/27/16 03/27/16 03/27/16 02:19 05:47 06:02 WBC RBC Hgb Hct MCV MCH MCHC Plt Count [place] % (Auto) [place] # Seg Neutrophils % Seg Neuts % (Manual) Lymphocytes % (Manual) Seg Neutrophils # Man Lymphocytes # (Manual) Monocytes # (Manual) POC ABG pH POC ABG pCO2 27.3 L 30.3 L POC ABG pO2 50 L 112 H Sodium 158 H Potassium Chloride 126.7 H Carbon Dioxide 20 L BUN 25 H Creatinine 1.7 H Glucose POC Glucose Calcium 7.0 L Phosphorus Lactate Dehydrogenase Total Creatine Kinase Albumin Kwvjb-1-Dcgamriew Cnpwl-3-Ngutfswlj Beta Globulins PEP Interpretation Cholesterol LDL Cholesterol Direct 03/27/16 03/27/16 03/27/16 07:51 09:20 11:45 WBC 14.2 H RBC Hgb Hct MCV 83 L MCH 27 L MCHC Plt Count 113 L [place] % (Auto) [place] # Seg Neutrophils % Seg Neuts % (Manual) Lymphocytes % (Manual) Seg Neutrophils # Man Lymphocytes # (Manual) Monocytes # (Manual) POC ABG pH POC ABG pCO2 POC ABG pO2 Sodium Potassium Chloride Carbon Dioxide BUN Creatinine Glucose POC Glucose 124 H 241 H Calcium Phosphorus Lactate Dehydrogenase Total Creatine Kinase Albumin Tsyhp-0-Jpsnuldja Yyyqa-0-Oniupixah Beta Globulins PEP Interpretation Cholesterol LDL Cholesterol Direct 03/27/16 03/27/16 03/28/16 16:39 22:03 03:29 WBC RBC Hgb Hct MCV MCH MCHC Plt Count [place] % (Auto) [place] # Seg Neutrophils % Seg Neuts % (Manual) Lymphocytes % (Manual) Seg Neutrophils # Man Lymphocytes # (Manual) Monocytes # (Manual) POC ABG pH POC ABG pCO2 POC ABG pO2 Sodium Potassium Chloride Carbon Dioxide BUN Creatinine Glucose POC Glucose 266 H 167 H 241 H Calcium Phosphorus Lactate Dehydrogenase Total Creatine Kinase Albumin Bwcci-3-Euokwyljr Btuio-9-Tyfxcxihr Beta Globulins PEP Interpretation Cholesterol LDL Cholesterol Direct 03/28/16 03/28/16 03/28/16 05:00 05:00 05:00 WBC RBC Hgb Hct MCV 83 L MCH 27 L MCHC Plt Count 106 L [place] % (Auto) 10.1 H [place] # 1.0 H Seg Neutrophils % 75.1 H Seg Neuts % (Manual) Lymphocytes % (Manual) Seg Neutrophils # Man Lymphocytes # (Manual) Monocytes # (Manual) POC ABG pH POC ABG pCO2 POC ABG pO2 Sodium 147 H D Potassium 3.1 L D Chloride 112.3 H Carbon Dioxide 21 L BUN Creatinine Glucose 208 H POC Glucose Calcium 7.0 L Phosphorus 2.2 L Lactate Dehydrogenase Total Creatine Kinase Albumin Zpvtw-3-Uhhgupqyh Bgxcm-1-Rvppmobxa Beta Globulins PEP Interpretation Cholesterol LDL Cholesterol Direct 03/28/16 03/28/16 03/28/16 05:14 08:41 10:56 WBC RBC Hgb Hct MCV MCH MCHC Plt Count [place] % (Auto) [place] # Seg Neutrophils % Seg Neuts % (Manual) Lymphocytes % (Manual) Seg Neutrophils # Man Lymphocytes # (Manual) Monocytes # (Manual) POC ABG pH 7.457 H POC ABG pCO2 29.7 L 27.7 L POC ABG pO2 Sodium Potassium Chloride Carbon Dioxide BUN Creatinine Glucose POC Glucose 228 H Calcium Phosphorus Lactate Dehydrogenase Total Creatine Kinase Albumin Ldjxn-9-Kngvaepma Bjfyb-0-Jwfmlpvjv Beta Globulins PEP Interpretation Cholesterol LDL Cholesterol Direct 03/28/16 03/28/16 03/28/16 11:37 13:29 16:22 WBC RBC Hgb Hct MCV MCH MCHC Plt Count Alcorn % (Auto) Alcorn # Seg Neutrophils % Seg Neuts % (Manual) Lymphocytes % (Manual) Seg Neutrophils # Man Lymphocytes # (Manual) Monocytes # (Manual) POC ABG pH POC ABG pCO2 POC ABG pO2 Sodium Potassium Chloride Carbon Dioxide BUN Creatinine Glucose POC Glucose 226 H 200 H Calcium Phosphorus Lactate Dehydrogenase Total Creatine Kinase 356 H Albumin Pdgtj-2-Bmckamqqg Lvfsi-2-Zuhevmogw Beta Globulins PEP Interpretation Cholesterol LDL Cholesterol Direct 03/28/16 03/29/16 03/29/16 21:48 04:50 04:50 WBC RBC Hgb 11.5 L Hct 35.3 L MCV 81 L MCH 26 L MCHC Plt Count 97 L Alcorn % (Auto) 11.7 H Alcorn # 1.1 H Seg Neutrophils % Seg Neuts % (Manual) Lymphocytes % (Manual) Seg Neutrophils # Man Lymphocytes # (Manual) Monocytes # (Manual) POC ABG pH POC ABG pCO2 POC ABG pO2 Sodium 136 L D Potassium 3.3 L Chloride Carbon Dioxide 20 L BUN Creatinine Glucose 386 H POC Glucose 188 H Calcium 6.8 L Phosphorus 1.6 L D Lactate Dehydrogenase Total Creatine Kinase Albumin Krhgc-3-Nitawvawd Qejfk-9-Ncbhrgtvi Beta Globulins PEP Interpretation Cholesterol LDL Cholesterol Direct
--- NOTE | 2016-03-29 15:25 | Cat Scan Report ---
CT HEAD WITHOUT CONTRAST History: CVA. Technique: Sequential noncontrast CT images. Findings: Compared to 03/24/16. There is a new area of diminished attenuation in the inferior right cerebellar hemisphere measuring 5.6 x 4.0 cm in plane. This has the appearance of a new ischemic infarct. There is mild mass effect on the fourth ventricle but no evidence for uncontained hemorrhage or hydrocephalus. There may be minimal hemorrhagic transformation within the infarct on image 14. This appears to be within the right posterior inferior cerebellar artery territory. Moderate diffuse chronic white matter changes and scattered chronic lacunar infarcts are again noted and unchanged. 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 There is mild mucosal thickening throughout all paranasal sinuses. A left nasal tube is in place. Impression: Acute to subacute ischemic infarct in the right inferior cerebellum as outlined above. Additional chronic findings which are unchanged since exam 5 days ago. These findings were discussed with the patient's RN at [address] Shepherd was paged.
[2016-03-29] MEDS ORDERED: NACL 0.9% 500 ML 500 ML IV ONE (15:32)
--- NOTE | 2016-03-29 15:35 | Event Note ---
Date: 03/29/16 CT head- new acute to subacute RT inferior cerebellar infarct; avoid hypotension for the next 24- 48 hrs; Keep SBP 140-150; will hold BP meds; NS bolus as SBP in the 90's; start ASA; continue statin; f/u ECHO; for carotid doppler at bedside
[2016-03-29] MEDS: ASPIRIN PO SCH (16:45)
[2016-03-29] MEDS: D50W (25GM) IV PRN (16:50)
[2016-03-29] MEDS: NACL 0.9% 1000 ML 1,000 ML IV SCH (16:53)
--- NOTE | 2016-03-29 18:40 | Consultation ---
History of Present Illness Consult date: 03/29/16 Chief complaint: stroke History of present illness: This is a 61 YO M with several medical problems who was admitted for metabolic issues and hypertensive emergency. A head CT was repeated to day and pt found to have a right cerebellar stroke. No hydrocephalus. Pt also with a seizure disorder. On my arrival pt is on the ventilator but is not sedated. He does not open his eyes but will follow my commands in all four extremities. Past History Past Medical History: CAD, diabetes, hypertension, hyperlipidemia, renal failure , seizures, other (bioprosthetic aortic valve, aortic dissection; obtained per chart review) Past Surgical History: Other (bioprosthetic aortic valve replacement, aortic dissection repair 2; obtained per chart review) Social history: other (unable to obtain due to patient's mental status) Family history: other (unable to obtain due to patient's mental status) Medications and Allergies Allergies Allergy/AdvReac Type Severity Reaction Status Date / Time No Known Allergies Allergy Unverified 05/19/13 09:32 Home Medications Medication Instructions Recorded Confirmed Last Taken Type Amiodarone [Cordarone 200 MG TAB] 200 mg PO DAILY #30 tablet 05/07/15 03/24/16 Unknown Rx AtorvaSTATin [Lipitor] 10 mg PO QHS tablet 05/07/15 03/24/16 Unknown Rx Famotidine [Pepcid] 20 mg PO BID tablet 05/07/15 03/24/16 Unknown Rx Insulin Glargine [Lantus VIAL] 30 units SUB-Q QHS units 05/07/15 03/24/16 Unknown Rx Labetalol [Normodyne TAB] 300 mg PO BID #60 tablet 05/07/15 03/24/16 Unknown Rx QUEtiapine [SEROquel] 25 mg PO BID #60 tablet 05/07/15 03/24/16 Unknown Rx cloNIDine [Catapres] 0.2 mg PO TID #90 tablet 05/07/15 03/24/16 Unknown Rx levETIRAcetam [Keppra TAB] 500 mg PO BID #60 tablet 05/07/15 03/24/16 Unknown Rx metFORMIN [Glucophage] 500 mg PO BID #60 tablet 05/07/15 03/24/16 Unknown Rx Lisinopril [Zestril TAB] 40 mg PO BID 09/23/15 03/24/16 Unknown History NIFEdipine 60 mg PO DAILY 09/23/15 03/24/16 Unknown History Prazosin [Minipress] 5 mg PO BID 09/23/15 03/24/16 Unknown History glipiZIDE [glipiZIDE ER] 5 mg PO QAM 09/23/15 03/24/16 Unknown History Carvedilol [Coreg] 3.125 mg PO BID #60 tablet 09/24/15 03/24/16 Unknown Rx Active Meds: Active Medications Acetaminophen (Tylenol) 650 mg PO Q4H PRN PRN Reason: Pain MILD(1-3)/Fever >100.5/DUVAL Amiodarone HCl (Cordarone) 200 mg PO DAILY [facility] Last Admin: 03/29/16 10:38 Dose: 200 mg Lipase/Protease/Amylase (Pancreaze Dr 10,500 Unit) 1 each FEEDTUBE PRN PRN PRN Reason: For Clogged Feeding Tube Aspirin (Aspirin) 325 mg PO QDAY [facility] Last Admin: 03/29/16 16:45 Dose: 325 mg Atorvastatin Calcium (Lipitor) 10 mg PO QHS [facility] Last Admin: 03/28/16 22:38 Dose: 10 mg Bisacodyl (Dulcolax) 10 mg AK QDAY PRN PRN Reason: Constipation unrelieved by MOM Dextrose (D50w (25gm)) 50 ml IV PRN PRN PRN Reason: Hypoglycemia Last Admin: 03/29/16 16:50 Dose: 50 ml Famotidine (Pepcid) 20 mg PO BID [facility] Last Admin: 03/29/16 10:36 Dose: 20 mg Heparin Sodium (Porcine) (Heparin) 5,000 unit SUB-Q Q8HR [facility] Last Admin: 03/29/16 16:05 Dose: 5,000 unit Hydralazine HCl (Apresoline) 20 mg IV Q6H PRN PRN Reason: PRN SBP > 150 Last Admin: 03/27/16 14:13 Dose: 20 mg Hydrophilic Ointment (Vaseline Lip Therapy) 1 applic TP Q2HR PRN PRN Reason: Dry Lips Ceftriaxone Sodium (Rocephin/Ns 1 Gm/50 Ml) 50 mls @ 100 mls/hr IV Q24HR ANA LUISA PRN Reason: Protocol Last Admin: 03/29/16 10:39 Dose: 100 mls/hr Dextrose (D5w) 2,000 mls @ 125 mls/hr IV DIRECT ANA LUISA Last Admin: 03/28/16 17:51 Dose: 125 mls/hr Sodium Chloride (Nacl 0.9) 1,000 mls @ 100 mls/hr IV DIRECT ANA LUISA Last Admin: 03/29/16 16:53 Dose: 100 mls/hr Insulin Glargine (Lantus) 30 units SUB-Q QHS ANA LUISA Last Admin: 03/28/16 22:40 Dose: 30 units Insulin Glulisine (Apidra) 0 units SUB-Q ACHS ANA LUISA PRN Reason: Protocol Last Admin: 03/29/16 16:23 Dose: Not Given Levetiracetam (Keppra) 500 mg PO BID [facility] Last Admin: 03/29/16 10:36 Dose: 500 mg Magnesium Hydroxide (Milk Of Magnesia) 30 ml PO Q4H PRN PRN Reason: Constipation Multi-Ingred Cream/Lotion/Oil/Oint (Artificial Tears Ophth Oint) 1 applic OU Q4HR PRN PRN Reason: Dry Eye(s) Ondansetron HCl (Zofran) 4 mg IV Q8H PRN PRN Reason: N/V unrelieved by Reglan Last Admin: 03/28/16 00:01 Dose: 4 mg Simple Syrup (Simple Syrup) 15 ml FEEDTUBE PRN PRN PRN Reason: Hypoglycemia Simple Syrup (Simple Syrup) 30 ml FEEDTUBE PRN PRN PRN Reason: Hypoglycemia Sodium Bicarbonate (Sodium Bicarbonate) 325 mg FEEDTUBE PRN PRN PRN Reason: For Clogged Feeding Tube Review of Systems ROS unobtainable: due to mental status Physical Examination - Vital Signs Vital Signs: Vital Signs BP 187/142 03/24/16 13:33 - EENT EENT: Present: PERRL - Respiratory Respiratory: Present: lungs clear - Cardiovascular Cardiovascular: Present: normal S1, normal S2 - Neurologic Cranial nerve examination: PERRL, EOMI, face symmetric Detailed motor examination: other (pt moves all extremities on command but not against gravity) Detailed sensory examination: light touch Results - Laboratory Findings CBC and BMP: 03/29/16 04:50 03/29/16 04:50 Abnormal Lab Findings: Abnormal Labs 03/24/16 03/24/16 03/24/16 17:58 20:25 23:23 WBC RBC Hgb Hct MCV MCH MCHC Plt Count Lyman % (Auto) Lyman # Seg Neutrophils % Seg Neuts % (Manual) Lymphocytes % (Manual) Seg Neutrophils # Man Lymphocytes # (Manual) Monocytes # (Manual) POC ABG pH POC ABG pCO2 POC ABG pO2 Sodium 169 H* Potassium 3.5 L Chloride 130.3 H Carbon Dioxide BUN 28 H Creatinine 1.8 H Glucose POC Glucose 112 H Calcium Phosphorus Lactate Dehydrogenase Total Creatine Kinase Albumin Ercej-4-Thbaogkaw Wzlgq-6-Vypfvyqkb Beta Globulins PEP Interpretation Cholesterol 221 H LDL Cholesterol Direct 146 H 03/25/16 03/25/16 03/25/16 05:56 05:56 05:56 WBC 21.3 H RBC 6.32 H Hgb 16.7 H Hct 52.7 H MCV 83 L MCH 27 L MCHC Plt Count Lyman % (Auto) Lyman # Seg Neutrophils % Seg Neuts % (Manual) 91.0 H Lymphocytes % (Manual) 4.0 L Seg Neutrophils # Man 19.4 H Lymphocytes # (Manual) 0.9 L Monocytes # (Manual) 0.9 H POC ABG pH POC ABG pCO2 POC ABG pO2 Sodium 172 H* Potassium 3.5 L Chloride 130.4 H Carbon Dioxide BUN 29 H Creatinine 1.8 H Glucose 187 H POC Glucose Calcium Phosphorus Lactate Dehydrogenase 460 H Total Creatine Kinase Albumin Qfazh-2-Hduilgbvo Hcyzg-9-Bssuxrsdh Beta Globulins PEP Interpretation Cholesterol LDL Cholesterol Direct 03/25/16 03/25/16 03/25/16 07:55 12:19 13:00 WBC RBC Hgb Hct MCV MCH MCHC Plt Count Lyman % (Auto) Lyman # Seg Neutrophils % Seg Neuts % (Manual) Lymphocytes % (Manual) Seg Neutrophils # Man Lymphocytes # (Manual) Monocytes # (Manual) POC ABG pH POC ABG pCO2 POC ABG pO2 Sodium Potassium Chloride Carbon Dioxide BUN Creatinine Glucose POC Glucose 231 H 314 H Calcium Phosphorus Lactate Dehydrogenase Total Creatine Kinase Albumin 3.4 L Jmqih-7-Jzfrcetsg 0.4 H Dpocf-4-Ilgxrvnmq 1.1 H Beta Globulins 0.6 H PEP Interpretation see below H Cholesterol LDL Cholesterol Direct 03/25/16 03/25/16 03/26/16 16:41 22:45 08:32 WBC RBC Hgb Hct MCV MCH MCHC Plt Count Lyman % (Auto) Lyman # Seg Neutrophils % Seg Neuts % (Manual) Lymphocytes % (Manual) Seg Neutrophils # Man Lymphocytes # (Manual) Monocytes # (Manual) POC ABG pH POC ABG pCO2 POC ABG pO2 Sodium Potassium Chloride Carbon Dioxide BUN Creatinine Glucose POC Glucose 444 H 326 H 360 H Calcium Phosphorus Lactate Dehydrogenase Total Creatine Kinase Albumin Ctwdw-6-Higqusjjj Tfmeo-3-Qytrfqrgi Beta Globulins PEP Interpretation Cholesterol LDL Cholesterol Direct 03/26/16 03/26/16 03/26/16 12:38 15:33 15:47 WBC RBC Hgb Hct MCV MCH MCHC Plt Count Lyman % (Auto) Lyman # Seg Neutrophils % Seg Neuts % (Manual) Lymphocytes % (Manual) Seg Neutrophils # Man Lymphocytes # (Manual) Monocytes # (Manual) POC ABG pH 7.511 H POC ABG pCO2 26.5 L POC ABG pO2 70 L Sodium Potassium Chloride Carbon Dioxide BUN Creatinine Glucose POC Glucose 280 H 174 H Calcium Phosphorus Lactate Dehydrogenase Total Creatine Kinase Albumin Vyzva-5-Tgzfazwkw Hwljj-6-Vzjsyttej Beta Globulins PEP Interpretation Cholesterol LDL Cholesterol Direct 03/26/16 03/26/16 03/26/16 16:47 16:47 18:51 WBC 14.0 H RBC 5.17 H Hgb Hct MCV MCH 26 L MCHC 31 L Plt Count 139 L Lyman % (Auto) Lyman # Seg Neutrophils % Seg Neuts % (Manual) Lymphocytes % (Manual) Seg Neutrophils # Man Lymphocytes # (Manual) Monocytes # (Manual) POC ABG pH POC ABG pCO2 33.9 L POC ABG pO2 150 H Sodium 164 H* Potassium 3.4 L Chloride 128.5 H Carbon Dioxide BUN 30 H Creatinine 2.2 H Glucose 121 H POC Glucose Calcium 8.1 L Phosphorus Lactate Dehydrogenase Total Creatine Kinase Albumin Dmtrf-2-Horkggzno Oyxbh-4-Naoovmoxy Beta Globulins PEP Interpretation Cholesterol LDL Cholesterol Direct 03/27/16 03/27/16 03/27/16 02:19 05:47 06:02 WBC RBC Hgb Hct MCV MCH MCHC Plt Count Lyman % (Auto) Lyman # Seg Neutrophils % Seg Neuts % (Manual) Lymphocytes % (Manual) Seg Neutrophils # Man Lymphocytes # (Manual) Monocytes # (Manual) POC ABG pH POC ABG pCO2 27.3 L 30.3 L POC ABG pO2 50 L 112 H Sodium 158 H Potassium Chloride 126.7 H Carbon Dioxide 20 L BUN 25 H Creatinine 1.7 H Glucose POC Glucose Calcium 7.0 L Phosphorus Lactate Dehydrogenase Total Creatine Kinase Albumin Lslyo-2-Barwdbvlr Bfvna-1-Dbpfubbnq Beta Globulins PEP Interpretation Cholesterol LDL Cholesterol Direct 03/27/16 03/27/16 03/27/16 07:51 09:20 11:45 WBC 14.2 H RBC Hgb Hct MCV 83 L MCH 27 L MCHC Plt Count 113 L Lyman % (Auto) Lyman # Seg Neutrophils % Seg Neuts % (Manual) Lymphocytes % (Manual) Seg Neutrophils # Man Lymphocytes # (Manual) Monocytes # (Manual) POC ABG pH POC ABG pCO2 POC ABG pO2 Sodium Potassium Chloride Carbon Dioxide BUN Creatinine Glucose POC Glucose 124 H 241 H Calcium Phosphorus Lactate Dehydrogenase Total Creatine Kinase Albumin Iundu-9-Aauqydmre Lyesv-9-Tjaceiqzj Beta Globulins PEP Interpretation Cholesterol LDL Cholesterol Direct 03/27/16 03/27/16 03/28/16 16:39 22:03 03:29 WBC RBC Hgb Hct MCV MCH MCHC Plt Count Lyman % (Auto) Lyman # Seg Neutrophils % Seg Neuts % (Manual) Lymphocytes % (Manual) Seg Neutrophils # Man Lymphocytes # (Manual) Monocytes # (Manual) POC ABG pH POC ABG pCO2 POC ABG pO2 Sodium Potassium Chloride Carbon Dioxide BUN Creatinine Glucose POC Glucose 266 H 167 H 241 H Calcium Phosphorus Lactate Dehydrogenase Total Creatine Kinase Albumin Jwdtt-6-Wldtxuvgq Lpboq-7-Xumbzameg Beta Globulins PEP Interpretation Cholesterol LDL Cholesterol Direct 03/28/16 03/28/16 03/28/16 05:00 05:00 05:00 WBC RBC Hgb Hct MCV 83 L MCH 27 L MCHC Plt Count 106 L Lyman % (Auto) 10.1 H Lyman # 1.0 H Seg Neutrophils % 75.1 H Seg Neuts % (Manual) Lymphocytes % (Manual) Seg Neutrophils # Man Lymphocytes # (Manual) Monocytes # (Manual) POC ABG pH POC ABG pCO2 POC ABG pO2 Sodium 147 H D Potassium 3.1 L D Chloride 112.3 H Carbon Dioxide 21 L BUN Creatinine Glucose 208 H POC Glucose Calcium 7.0 L Phosphorus 2.2 L Lactate Dehydrogenase Total Creatine Kinase Albumin Hfofm-2-Hqwbhijaf Rwyaq-1-Ewyzbytpy Beta Globulins PEP Interpretation Cholesterol LDL Cholesterol Direct 03/28/16 03/28/16 03/28/16 05:14 08:41 10:56 WBC RBC Hgb Hct MCV MCH MCHC Plt Count Lyman % (Auto) Lyman # Seg Neutrophils % Seg Neuts % (Manual) Lymphocytes % (Manual) Seg Neutrophils # Man Lymphocytes # (Manual) Monocytes # (Manual) POC ABG pH 7.457 H POC ABG pCO2 29.7 L 27.7 L POC ABG pO2 Sodium Potassium Chloride Carbon Dioxide BUN Creatinine Glucose POC Glucose 228 H Calcium Phosphorus Lactate Dehydrogenase Total Creatine Kinase Albumin Gjxfl-4-Unwvbalqn Earpu-2-Ndmzaeffy Beta Globulins PEP Interpretation Cholesterol LDL Cholesterol Direct 03/28/16 03/28/16 03/28/16 11:37 13:29 16:22 WBC RBC Hgb Hct MCV MCH MCHC Plt Count Lyman % (Auto) Lyman # Seg Neutrophils % Seg Neuts % (Manual) Lymphocytes % (Manual) Seg Neutrophils # Man Lymphocytes # (Manual) Monocytes # (Manual) POC ABG pH POC ABG pCO2 POC ABG pO2 Sodium Potassium Chloride Carbon Dioxide BUN Creatinine Glucose POC Glucose 226 H 200 H Calcium Phosphorus Lactate Dehydrogenase Total Creatine Kinase 356 H Albumin Ywkzc-8-Isgfrzlup Ribsf-9-Bnnswmngo Beta Globulins PEP Interpretation Cholesterol LDL Cholesterol Direct 03/28/16 03/29/16 03/29/16 21:48 04:50 04:50 WBC RBC Hgb 11.5 L Hct 35.3 L MCV 81 L MCH 26 L MCHC Plt Count 97 L Lyman % (Auto) 11.7 H Lyman # 1.1 H Seg Neutrophils % Seg Neuts % (Manual) Lymphocytes % (Manual) Seg Neutrophils # Man Lymphocytes # (Manual) Monocytes # (Manual) POC ABG pH POC ABG pCO2 POC ABG pO2 Sodium 136 L D Potassium 3.3 L Chloride Carbon Dioxide 20 L BUN Creatinine Glucose 386 H POC Glucose 188 H Calcium 6.8 L Phosphorus 1.6 L D Lactate Dehydrogenase Total Creatine Kinase Albumin Gjruz-0-Pkqisomsx Batow-8-Xyvkjdlig Beta Globulins PEP Interpretation Cholesterol LDL Cholesterol Direct - Diagnostic Findings Additional findings: Head CT with right cerebellar infarct echo pending EEG report pending Assessment and Plan This is a 61 YO M with an acute stroke Recommend: Repeat CT head for any changes in status, would repeat in 24-48 hours to look for increasing edema. Consult neurosurgery if edema is severe. Needs MRA vs CTA to look at the posterior circulation Continue aspirin and statin VTE prophylaxis Continue care for his medical and metabolic issues as you are doing Continue Keppra for seizures Wean ventilator as tolerated Thank you for this consult. Please call with questions.
--- NOTE | 2016-03-29 20:09 | Echocardiography Report ---
Transthoracic Echocardiogram Indication: Murmur BP: 119/75 Conclusions *1. Normal LV systolic function, EF 65-70%. *2. Severe, concentric LVH. Findings Procedure Info: The study quality is good. Left Ventricle: The left ventricular chamber size is normal. Severe concentric left ventricular hypertrophy is observed. Global left ventricular systolic function is normal. The estimated ejection fraction is 65-70%. Abnormal left ventricular diastolic filling is observed, consistent with impaired relaxation. Left Atrium: The left atrial chamber size is normal. Right Ventricle: The right ventricular cavity size is normal. The right ventricular global systolic function is normal. Right Atrium: The right atrial cavity size is normal. Aortic Valve: The aortic valve is trileaflet. The aortic valve leaflets are mildly thickened. Mild aortic leaflet calcification is visualized. Systolic excursion of the aortic valve cusps is reduced. There is aortic annular calcification. There is mild aortic regurgitation. There is no evidence of aortic stenosis. Mitral Valve: The mitral valve leaflets appear myxomatous. The mitral valve leaflets are mildly thickened. Mitral valve posterior leaflet calcification is visualized. There is mild mitral regurgitation. There is no evidence of mitral stenosis. Tricuspid Valve: There is mild tricuspid regurgitation. No pulmonary hypertension is noted. Pulmonic Valve: There is mild pulmonic regurgitation. Pericardium: A pericardial effusion is visualized. A trivial pericardial effusion is visualized. Aorta: There is mild dilatation of the aortic root. Venous: The inferior vena cava appears normal in size. There is a greater than 50% respiratory change in the inferior vena cava dimension. Measurements Chambers 2D Name Value Normal Range IVSd (2D) 1.82 cm (0.6 - 1.1) LVPWd (2D) 1.81 cm (0.6 - 1.1) IVS:LVPW ratio (2D) 1.01 ratio - LVIDd (2D) 3.24 cm (3.7 - 5.6) LVIDs (2D) 2.14 cm (2 - 3.8) LV FS (Teichholz) (2D) 34 % - LV FS (cube) (2D) 34 % - EF Teichholz (2D) 64.2 % - Ao root diameter (2D) 4.1 cm (2 - 3.7) LA dimension (AP) 2D 3.7 cm (1.9 - 4) LA:Ao ratio (2D) 0.9 ratio - Volumes/Mass Name Value Normal Range LA ESV SP 4CH (MOD) 47 ml - LA ESV SP 2CH (MOD) 35 ml - LV EDV SP 4CH (MOD) 60 ml - LV ESV SP 4CH (MOD) 26 ml - EF SP 4CH (MOD) 57 % - LV EDV SP 2CH (MOD) 53 ml - LV ESV SP 2CH (MOD) 20 ml - EF SP 2CH (MOD) 62 % - LV EDV BP 57 ml - LV ESV BP 25 ml - BP EF (MOD) 56 % - Diastolic/Systolic Function Name Value Normal Range MV E-wave Vmax 0.54 m/sec - MV deceleration time 461 msec - MV A-wave Vmax 0.68 m/sec - MV E:A ratio 0.8 ratio - LV septal e' Vmax 0.05 m/sec - LV lateral e' Vmax 0.05 m/sec - LV E:e' septal ratio 11.5 ratio - LV E:e' lateral ratio 11.9 ratio - Aortic Valve Name Value Normal Range AV VTI 37.2 cm - AV mean gradient 10 mmHg - LVOT diameter 2 cm - LVOT VTI 26 cm - LVOT mean gradient 4 mmHg - SV LVOT 82 ml - ROBIN (continuity VTI) 2.19 cm2 - AR PHT 616 msec - AR peak gradient 27 mmHg - Mitral Valve Name Value Normal Range MV Vmax 1.3 m/sec - MV VTI 26.4 cm - MV peak gradient 7 mmHg - MV mean gradient 2 mmHg - MV PHT 126 msec - MVA (PHT) 1.75 cm2 - MVA (continuity VTI) 3.09 cm2 - Tricuspid Valve Name Value Normal Range TV E-wave Vmax 0.45 m/sec - TR Vmax 2.4 m/sec - TR peak gradient 23 mmHg - RAP 3 mmHg - RVSP 26 mmHg - Pulmonic Valve/Qp:Qs Name Value Normal Range PV Vmax 1.05 m/sec - PV VTI 15 cm - PV peak gradient 4 mmHg - PV mean gradient 2 mmHg - CT end-diastolic Vmax 1.08 m/sec - RVOT Vmax 0.94 m/sec - RVOT VTI 13.5 cm - RVOT peak gradient 4 mmHg - PV acceleration time 134 msec -
[2016-03-29] MEDS: ZOFRAN IV PRN (21:25)
[2016-03-29] MEDS: LANTUS SUB-Q SCH (23:00)
[2016-03-30] MEDS: NACL 0.9% 1000 ML 1,000 ML IV SCH (04:43)
[2016-03-30] MEDS: HEPARIN SUB-Q SCH ×3 (05:04→22:12)
[2016-03-30 05:35] LABS: ISTAT Base Excess -4; ISTAT HCO3 18.6; ISTAT PCO2 22.7 (35-45); ISTAT PH 7.522 (7.35-7.45); ISTAT PO2 137 (80-105); ISTAT SO2 99; ISTAT TCO2 19
[2016-03-30 06:42] LABS: Basophils % (Auto) 0.5 % (0.0-1.8); Eosinophils % (Auto) 1.4 % (0.0-4.3); Hematocrit 37.3 % (35.5-45.6); Hemoglobin 12.1 gm/dl (11.8-15.2); Mean Corpuscular HGB Conc 32 % (32-34); Mean Corpuscular Hemoglobin 26 pg (28-32); Mean Corpuscular Volume 81 fl (84-94); Platelet Count 116 K/mm3 (140-440); Red Blood Count 4.58 M/mm3 (3.65-5.03); Red Cell Distribution Width 14.5 % (13.2-15.2); White Blood Count 9.7 K/mm3 (4.5-11.0)
[2016-03-30 07:05] LABS: Anion Gap 15 mmol/L; BUN/Creatinine Ratio 10.83; Blood Urea Nitrogen 13 mg/dL (9-20); Calcium 7.6 mg/dL (8.4-10.2); Carbon Dioxide 20 mmol/L (22-30); Chloride 115.5 mmol/L (98-107); Glucose 116 mg/dL (75-100); Magnesium 1.9 mg/dL (1.7-2.3); Phosphorous 2.3 mg/dL (2.5-4.5); Potassium 3.9 mmol/L (3.6-5.0); Sodium 147 mmol/L (137-145)
[2016-03-30] MEDS: APIDRA SUB-Q SCH ×2 (08:00→12:05)
--- NOTE | 2016-03-30 09:06 | XRay Report ---
AP CHEST: HISTORY: Follow-up respiratory failure. FINDINGS: Mild cardiomegaly is unchanged since yesterday's exam. The lungs are clear. The aorta is ectatic but well-defined. The endotracheal tube and nasogastric tube remain in adequate position. No acute change is demonstrated since yesterday's exam.
[2016-03-30 09:19] LABS: ISTAT Base Excess -6; ISTAT PCO2 26.2 (35-45); ISTAT PH 7.446 (7.35-7.45); ISTAT PO2 115 (80-105); ISTAT SO2 99; ISTAT TCO2 19
--- NOTE | 2016-03-30 09:49 | Progress Note ---
Assessment and Plan Assessment and plan: 1. Acute respiratory failure-continue vent management as per critical care 2. Acute CVA. CT scan revealed acute ischemic infarct in the right if her cerebellum. Repeat CT scan in the next 24-48 hours. Consider neurosurgical consultation. MRA versus CTA to look at posterior circulation. Continue aspirin and statin. 3. Hyperatremia -resolved; d/c D5W; Continue to monitor 4. Metabolic encephalopathy-f/u CT scan head and EEG; continue management as discussed above. 5. Group B strep UTI-continue IV ceftriaxone; wbc normal and afebrile 6. Benign hypertension-controlled, continue clonidine patch, Coreg 7. CAD-stable, continue current beta em, statin 8. Seizures-continue Keppra; f/u EEG 9. Diabetes type 2 with insulin dependence-continue insulin regime, continue to monitor Accu-Cheks 10. Mild hypokelemia- improving; will replace with po supplementation; hypophosphatemia- will replace and monitor 11. DVT prophylaxis-Lovenox 12. GI prophylaxis-Pepcid The high probability of a clinically significant, sudden or life threatening deterioration of the [respiratory and neurological] system(s) required my full and direct attention, intervention and personal management. The aggregate critical care time was [31] minutes. This time is in addition to time spent performing reported procedures but includes the following: [x] Data Review and interpretation [x] Patient assessment and monitoring of vital signs [x] Documentation [x] Medication orders and management History Interval history: Patient is currently intubated with no new issues overnight. Hospitalist Physical - Constitutional Vitals: Temp Pulse Resp BP Pulse Ox 98.6 F 86 12 150/99 99 03/30/16 08:00 03/30/16 09:00 03/30/16 09:00 03/30/16 09:00 03/30/16 09:00 General appearance: Present: other (vented) - EENT Eyes: Present: PERRL, EOM intact ENT: hearing intact, clear oral mucosa, dentition normal - Neck Neck: Present: supple, normal ROM - Respiratory Respiratory effort: normal Respiratory: bilateral: diminished, rhonchi - Cardiovascular Rhythm: regular Heart Sounds: Present: S1 & S2. Absent: gallop, rub - Extremities Extremities: no ischemia, No edema, Full ROM - Abdominal General gastrointestinal: soft, non-tender, non-distended, normal bowel sounds - Integumentary Integumentary: Present: clear, warm, dry - Neurologic Neurologic: CNII-XII intact, moves all extremities Results - Labs CBC & Chem 7: 03/30/16 04:00 03/30/16 04:00 Labs: Laboratory Last Values WBC 9.7 K/mm3 (4.5-11.0) 03/30/16 04:00 RBC 4.58 M/mm3 (3.65-5.03) 03/30/16 04:00 Hgb 12.1 gm/dl (11.8-15.2) 03/30/16 04:00 Hct 37.3 % (35.5-45.6) 03/30/16 04:00 MCV 81 fl (84-94) L 03/30/16 04:00 MCH 26 pg (28-32) L 03/30/16 04:00 MCHC 32 % (32-34) 03/30/16 04:00 RDW 14.5 % (13.2-15.2) 03/30/16 04:00 Plt Count 116 K/mm3 (140-440) L 03/30/16 04:00 Lymph % (Auto) 10.8 % (13.4-35.0) L 03/30/16 04:00 [place] % (Auto) 13.1 % (0.0-7.3) H 03/30/16 04:00 Eos % (Auto) 1.4 % (0.0-4.3) 03/30/16 04:00 Baso % (Auto) 0.5 % (0.0-1.8) 03/30/16 04:00 Lymph # 1.0 K/mm3 (1.2-5.4) L 03/30/16 04:00 [place] # 1.3 K/mm3 (0.0-0.8) H 03/30/16 04:00 Eos # 0.1 K/mm3 (0.0-0.4) 03/30/16 04:00 Baso # 0.0 K/mm3 (0.0-0.1) 03/30/16 04:00 Add Manual Diff Complete 03/25/16 05:56 Total Counted 100 03/25/16 05:56 Seg Neutrophils % 74.2 % (40.0-70.0) H 03/30/16 04:00 Seg Neuts % (Manual) 91.0 % (40.0-70.0) H 03/25/16 05:56 Band Neutrophils % 1.0 % 03/25/16 05:56 Lymphocytes % (Manual) 4.0 % (13.4-35.0) L 03/25/16 05:56 Reactive Lymphs % (Man) 0 % 03/25/16 05:56 Monocytes % (Manual) 4.0 % (0.0-7.3) 03/25/16 05:56 Eosinophils % (Manual) 0 % (0.0-4.3) 03/25/16 05:56 Basophils % (Manual) 0 % (0.0-1.8) 03/25/16 05:56 Metamyelocytes % 0 % 03/25/16 05:56 Myelocytes % 0 % 03/25/16 05:56 Promyelocytes % 0 % 03/25/16 05:56 Blast Cells % 0 % 03/25/16 05:56 Nucleated RBC % Not Reportable 03/25/16 05:56 Seg Neutrophils # 7.2 K/mm3 (1.8-7.7) 03/30/16 04:00 Seg Neutrophils # Man 19.4 K/mm3 (1.8-7.7) H 03/25/16 05:56 Band Neutrophils # 0.2 K/mm3 03/25/16 05:56 Lymphocytes # (Manual) 0.9 K/mm3 (1.2-5.4) L 03/25/16 05:56 Abs React Lymphs (Man) 0.0 K/mm3 03/25/16 05:56 Monocytes # (Manual) 0.9 K/mm3 (0.0-0.8) H 03/25/16 05:56 Eosinophils # (Manual) 0.0 K/mm3 (0.0-0.4) 03/25/16 05:56 Basophils # (Manual) 0.0 K/mm3 (0.0-0.1) 03/25/16 05:56 Metamyelocytes # 0.0 K/mm3 03/25/16 05:56 Myelocytes # 0.0 K/mm3 03/25/16 05:56 Promyelocytes # 0.0 K/mm3 03/25/16 05:56 Blast Cells # 0.0 K/mm3 03/25/16 05:56 WBC Morphology Not Reportable 03/25/16 05:56 Hypersegmented Neuts Not Reportable 03/25/16 05:56 Hyposegmented Neuts Not Reportable 03/25/16 05:56 Hypogranular Neuts Not Reportable 03/25/16 05:56 Smudge Cells Not Reportable 03/25/16 05:56 Toxic Granulation Not Reportable 03/25/16 05:56 Toxic Vacuolation Not Reportable 03/25/16 05:56 Dohle Bodies Not Reportable 03/25/16 05:56 Pelger-Huet Anomaly Not Reportable 03/25/16 05:56 Corina Rods Not Reportable 03/25/16 05:56 Platelet Estimate Appears normal 03/25/16 05:56 Clumped Platelets Not Reportable 03/25/16 05:56 Plt Clumps, EDTA Not Reportable 03/25/16 05:56 Large Platelets Not Reportable 03/25/16 05:56 Giant Platelets Not Reportable 03/25/16 05:56 Platelet Satelliting Not Reportable 03/25/16 05:56 Plt Morphology Comment Not Reportable 03/25/16 05:56 RBC Morphology Normal 03/25/16 05:56 Dimorphic RBCs Not Reportable 03/25/16 05:56 Polychromasia Not Reportable 03/25/16 05:56 Hypochromasia Not Reportable 03/25/16 05:56 Poikilocytosis Not Reportable 03/25/16 05:56 Anisocytosis Not Reportable 03/25/16 05:56 Microcytosis Not Reportable 03/25/16 05:56 Macrocytosis Not Reportable 03/25/16 05:56 Spherocytes Not Reportable 03/25/16 05:56 Pappenheimer Bodies Not Reportable 03/25/16 05:56 Sickle Cells Not Reportable 03/25/16 05:56 Target Cells Not Reportable 03/25/16 05:56 Tear Drop Cells Not Reportable 03/25/16 05:56 Ovalocytes Not Reportable 03/25/16 05:56 Helmet Cells Not Reportable 03/25/16 05:56 Mcgrath-Kane Bodies Not Reportable 03/25/16 05:56 [place] Rings Not Reportable 03/25/16 05:56 Tuan Cells Not Reportable 03/25/16 05:56 Bite Cells Not Reportable 03/25/16 05:56 Crenated Cell Not Reportable 03/25/16 05:56 Elliptocytes Not Reportable 03/25/16 05:56 Acanthocytes (Spur) Not Reportable 03/25/16 05:56 Rouleaux Not Reportable 03/25/16 05:56 Hemoglobin C Crystals Not Reportable 03/25/16 05:56 Schistocytes Not Reportable 03/25/16 05:56 Malaria parasites Not Reportable 03/25/16 05:56 [place] Bodies Not Reportable 03/25/16 05:56 Hem Pathologist Commnt No 03/25/16 05:56 PT 14.6 Sec. (12.2-14.9) 03/24/16 14:00 INR 1.15 (0.87-1.13) H 03/24/16 14:00 POC ABG pH 7.446 (7.35-7.45) 03/30/16 08:59 POC ABG pCO2 26.2 (35-45) L 03/30/16 08:59 POC ABG pO2 115 (80-105) H 03/30/16 08:59 POC ABG HCO3 18.0 03/30/16 08:59 POC ABG Total CO2 19 03/30/16 08:59 POC ABG O2 Sat 99 03/30/16 08:59 POC ABG Base Excess -6 03/30/16 08:59 VBG pH 7.418 (7.320-7.420) 03/24/16 14:00 FiO2 30 % 03/30/16 08:59 Sodium 147 mmol/L (137-145) H D 03/30/16 04:00 Potassium 3.9 mmol/L (3.6-5.0) 03/30/16 04:00 Chloride 115.5 mmol/L (98-107) H 03/30/16 04:00 Carbon Dioxide 20 mmol/L (22-30) L 03/30/16 04:00 Anion Gap 15 mmol/L 03/30/16 04:00 BUN 13 mg/dL (9-20) 03/30/16 04:00 Creatinine 1.2 mg/dL (0.8-1.5) 03/30/16 04:00 Estimated GFR > 60 ml/min 03/30/16 04:00 BUN/Creatinine Ratio 10.83 % 03/30/16 04:00 Glucose 116 mg/dL (75-100) H 03/30/16 04:00 POC Glucose 138 (70-105) H 03/30/16 05:47 Hemoglobin A1c 9.6 % (4-6) H 03/24/16 14:00 Lactic Acid 2.8 mmol/L (0.7-2.1) H 03/24/16 15:26 Calcium 7.6 mg/dL (8.4-10.2) L 03/30/16 04:00 Phosphorus 2.3 mg/dL (2.5-4.5) L D 03/30/16 04:00 Magnesium 1.9 mg/dL (1.7-2.3) 03/30/16 04:00 Total Bilirubin 0.3 mg/dL (0.1-1.2) 03/24/16 14:00 AST 24 units/L (5-40) 03/24/16 14:00 ALT 38 units/L (7-56) 03/24/16 14:00 Alkaline Phosphatase 77 units/L (35-129) 03/24/16 14:00 Lactate Dehydrogenase 460 units/L (91-180) H 03/25/16 05:56 Total Creatine Kinase 356 units/L (55-170) H 03/28/16 13:29 Troponin T < 0.010 ng/mL (0.00-0.029) 03/28/16 13:29 Serum Total Protein 7.1 g/dL (6.1-8.1) 03/25/16 13:00 Total Protein 7.4 g/dL (6.3-8.2) 03/24/16 14:00 Albumin 3.4 g/dL (3.8-4.8) L 03/25/16 13:00 Albumin/Globulin Ratio 0.9 % 03/24/16 14:00 Pnspp-9-Hwxeyocun 0.4 g/dL (0.2-0.3) H 03/25/16 13:00 Cywev-2-Ivesrmuwx 1.1 g/dL (0.5-0.9) H 03/25/16 13:00 Beta Globulins 0.6 g/dL (0.2-0.5) H 03/25/16 13:00 Pyzk-4-Ywsfvulzyjvfh 2.46 mg/L (<=2.51) 03/25/16 13:00 Gamma Globulins 1.3 g/dL (0.8-1.7) 03/25/16 13:00 Abnorm Protein Band 1 see below (()) 03/25/16 13:00 PEP Interpretation see below (()) H 03/25/16 13:00 Triglycerides 88 mg/dL (2-149) 03/24/16 17:58 Cholesterol 221 mg/dL (50-199) H 03/24/16 17:58 LDL Cholesterol Direct 146 mg/dL (50-130) H 03/24/16 17:58 HDL Cholesterol 58 mg/dL (40-59) 03/24/16 17:58 Cholesterol/HDL Ratio 3.81 % 03/24/16 17:58 Urine Color Yellow (Yellow) 03/24/16 14:27 Urine Turbidity Clear (Clear) 03/24/16 14:27 Urine pH 5.0 (5.0-7.0) 03/24/16 14:27 Ur Specific [place] 1.017 (1.003-1.030) 03/24/16 14:27 Urine Protein <15 mg/dl mg/dL (Negative) 03/24/16 14:27 Urine Glucose (UA) >=500 mg/dL (Negative) 03/24/16 14:27 Urine Ketones Neg mg/dL (Negative) 03/24/16 14:27 Urine Blood Sm (Negative) 03/24/16 14:27 Urine Nitrite Neg (Negative) 03/24/16 14:27 Urine Bilirubin Neg (Negative) 03/24/16 14:27 Urine Urobilinogen < 2.0 mg/dL (<2.0) 03/24/16 14:27 Ur Leukocyte Esterase Neg (Negative) 03/24/16 14:27 Urine WBC (Auto) 2.0 /HPF (0.0-6.0) 03/24/16 14:27 Urine RBC (Auto) < 1.0 /HPF (0.0-6.0) 03/24/16 14:27 U Epithel Cells (Auto) 4.0 /HPF (0-13.0) 03/24/16 14:27 Hyaline Casts 1 /LPF 03/24/16 14:27 Urine Mucus Few /HPF 03/24/16 14:27 Ketones 1.0 mg/dL (0.2-2.8) 03/24/16 14:00
[2016-03-30] MEDS: KEPPRA PO SCH ×3 (10:00→22:35)
[2016-03-30] MEDS: CORDARONE PO SCH (10:00)
[2016-03-30] MEDS: PEPCID PO SCH ×2 (10:00→22:11)
[2016-03-30] MEDS: ASPIRIN PO SCH (10:00)
[2016-03-30] MEDS: ROCEPHIN/NS 1 GM/50 ML 50 ML IV SCH (10:34)
[2016-03-30 12:14] LABS: ISTAT Base Excess -2; ISTAT HCO3 21.4; ISTAT PH 7.476 (7.35-7.45); ISTAT PO2 91 (80-105); ISTAT SO2 98; ISTAT TCO2 22
[2016-03-30] MEDS: ZOFRAN IV PRN ×2 (13:20→22:11)
--- NOTE | 2016-03-30 15:19 | Progress Note ---
Addendum entered and electronically signed by MASOOD HAWLEY MD 03/30/16 19:00 : Continue supportive management of respiratory failure. Cardiac status is stable. Original Note: Assessment and Plan Acute respiratory failure requiring intubation no evidence of PE by V\Q scan Acute CVA Abnormal ECG no significant CAD by C 08/2015 Hx of aortic dissection s/p repair Hx of bioprosthetic aortic valve replacement normal function on echo 08/2015 Hypertension Supportive cardiac management. Subjective Date of service: 03/30/16 Interval history: Remains intubated on the vent. Objective Vital Signs Temp Pulse Pulse Resp BP Pulse Ox 03/30/16 14:01 70 18 170/101 100 03/30/16 13:00 74 10 L 159/96 97 03/30/16 12:20 76 142/96 99 03/30/16 12:03 75 19 142/96 99 03/30/16 12:00 98.3 F 76 78 21 142/96 99 03/30/16 11:41 82 19 156/96 99 03/30/16 11:00 88 17 156/96 99 03/30/16 10:09 89 14 155/93 99 03/30/16 10:00 86 16 155/93 99 03/30/16 09:35 87 13 150/99 100 03/30/16 09:00 86 12 150/99 99 03/30/16 08:41 89 18 152/96 99 03/30/16 08:00 98.6 F 89 87 17 152/96 97 03/30/16 07:49 91 H 142/92 99 03/30/16 07:35 87 12 153/93 100 03/30/16 07:00 87 18 142/92 03/30/16 06:13 92 H 20 153/93 100 03/30/16 06:00 86 13 153/93 99 03/30/16 05:00 78 20 150/94 99 03/30/16 04:40 75 100 03/30/16 04:00 97.9 F 84 89 18 139/91 98 03/30/16 03:00 78 19 126/83 100 03/30/16 02:00 74 9 L 134/83 98 03/30/16 01:27 72 12 133/79 100 03/30/16 01:07 73 133/79 99 03/30/16 01:00 72 11 L 133/79 97 03/30/16 00:00 97.5 F L 69 73 13 135/82 100 03/29/16 23:01 69 8 L 128/77 100 03/29/16 23:00 68 11 L 128/77 98 03/29/16 22:15 68 12 120/76 99 03/29/16 22:00 69 18 120/76 100 03/29/16 21:48 71 8 L 112/80 100 03/29/16 21:06 73 112/80 100 03/29/16 21:00 71 13 112/80 99 03/29/16 20:00 89 77 12 117/75 100 03/29/16 19:51 99.9 F H 03/29/16 19:00 84 14 96/72 100 03/29/16 18:47 84 19 105/69 100 03/29/16 18:00 84 11 L 105/69 03/29/16 17:00 84 16 101/71 03/29/16 16:00 99.4 F 87 19 90/61 100 - Physical Examination General: Other (VENT) Cardiac: Positive: Reg Rate and Rhythm Abdomen: Positive: Soft Extremities: Present: normal - Labs and Meds CBC 03/30/16 Range/Units 04:00 WBC 9.7 (4.5-11.0) K/mm3 RBC 4.58 (3.65-5.03) M/mm3 Hgb 12.1 (11.8-15.2) gm/dl Hct 37.3 (35.5-45.6) % Plt Count 116 L (140-440) K/mm3 Lymph # 1.0 L (1.2-5.4) K/mm3 [place] # 1.3 H (0.0-0.8) K/mm3 Eos # 0.1 (0.0-0.4) K/mm3 Baso # 0.0 (0.0-0.1) K/mm3 Comprehensive Metabolic Panel 03/30/16 Range/Units 04:00 Sodium 147 H D (137-145) mmol/L Potassium 3.9 (3.6-5.0) mmol/L Chloride 115.5 H (98-107) mmol/L Carbon Dioxide 20 L (22-30) mmol/L BUN 13 (9-20) mg/dL Creatinine 1.2 (0.8-1.5) mg/dL Glucose 116 H (75-100) mg/dL Calcium 7.6 L (8.4-10.2) mg/dL - Imaging and Cardiology EKG: image reviewed
[2016-03-30] MEDS: D50W (25GM) IV PRN (17:53)
[2016-03-30] MEDS: NOVOLOG SUB-Q SCH (19:51)
[2016-03-30] MEDS: CATAPRES PO SCH (19:54)
[2016-03-30] MEDS: TYLENOL PO PRN (21:02)
[2016-03-30] MEDS ORDERED: LEVEMIR SUB-Q SCH (22:00)
[2016-03-31] MEDS: TYLENOL PO PRN ×3 (01:00→20:02)
[2016-03-31] MEDS: APRESOLINE IV PRN ×2 (04:08→11:15)
[2016-03-31] MEDS: ZOFRAN IV PRN ×2 (05:29→18:02)
[2016-03-31] MEDS: HEPARIN SUB-Q SCH ×3 (05:29→21:43)
[2016-03-31 06:08] LABS: ISTAT Base Excess -5; ISTAT HCO3 17.8; ISTAT PCO2 21.8 (35-45); ISTAT PH 7.519 (7.35-7.45); ISTAT PO2 142 (80-105); ISTAT SO2 99; ISTAT TCO2 18
[2016-03-31 06:34] LABS: Basophils % (Auto) 0.4 % (0.0-1.8); Eosinophils % (Auto) 1.1 % (0.0-4.3); Hematocrit 42.2 % (35.5-45.6); Hemoglobin 13.7 gm/dl (11.8-15.2); Mean Corpuscular HGB Conc 32 % (32-34); Mean Corpuscular Hemoglobin 26 pg (28-32); Mean Corpuscular Volume 81 fl (84-94); Platelet Count 182 K/mm3 (140-440); Red Blood Count 5.21 M/mm3 (3.65-5.03); Red Cell Distribution Width 14.4 % (13.2-15.2); White Blood Count 13.4 K/mm3 (4.5-11.0)
[2016-03-31 06:55] LABS: Anion Gap 22 mmol/L; BUN/Creatinine Ratio 11.81; Blood Urea Nitrogen 13 mg/dL (9-20); Calcium 8.5 mg/dL (8.4-10.2); Carbon Dioxide 19 mmol/L (22-30); Chloride 108.5 mmol/L (98-107); Glucose 188 mg/dL (75-100); Sodium 145 mmol/L (137-145)
--- NOTE | 2016-03-31 07:21 | Vascular Lab Report ---
CAROTID DUPLEX STUDY: RIGHT PSVEDV CCA PROX:4014 CCA DIST:3915 ICA PROX:3621 ICA MID:3418 ICA DIST:2714 ECA: 50 VERT: 27 13 LEFT PSVEDV CCA PROX:5512 CCA DIST:6216 ICA PROX:2012 ICA MID:3115 ICA DIST:6026 ECA: 40 VERT: 53 27 REASON FOR EXAM: CVA. COMMENTS ON THE RIGHT: Doppler frequency analysis is consistent with 16 to 49 percent diameter reduction of the internal carotid artery. Soft plaque is noted in the carotid bulb. The common carotid artery is patent. The external carotid artery is patent. The vertebral artery has antegrade flow. COMMENTS ON THE LEFT: Doppler frequency analysis is consistent with 16 to 49 percent diameter reduction of the internal carotid artery. Minimal amount of plaque is seen. The common carotid artery is patent. The external carotid artery is patent. The vertebral artery has antegrade flow. IMPRESSION: Less than 50% diameter reduction in the internal carotid arteries bilaterally. Consider repeat carotid artery duplex in 12 months.
--- NOTE | 2016-03-31 08:19 | Progress Note ---
Assessment and Plan Acute respiratory failure. AMS. I still patient appears disoriented although responsive to calls Recommendations Obtain off sedation and proceed with spontaneous breathing trial If tolerated, continue with weaning Monitor neurological status. Need further assessment with neurology if unimproved Subjective Date of service: 03/30/16 Interval history: Intubated Objective Vital Signs - 12hr 03/30/16 03/30/16 03/30/16 20:58 21:00 21:01 Temperature 98.8 F Pulse Rate 90 Pulse Rate [ 90 From Monitor] Respiratory 13 13 Rate Respiratory 16 Rate [Back] Respiratory 16 Rate [ Generalized] Blood Pressure 169/112 O2 Sat by Pulse 100 100 Oximetry 03/30/16 03/30/16 03/30/16 21:02 22:00 22:01 Temperature Pulse Rate 83 85 Pulse Rate [ From Monitor] Respiratory 14 17 Rate Respiratory Rate [Back] Respiratory Rate [ Generalized] Blood Pressure 166/98 169/112 O2 Sat by Pulse 99 99 Oximetry 03/30/16 03/30/16 03/30/16 22:02 22:39 23:00 Temperature Pulse Rate 82 81 Pulse Rate [ From Monitor] Respiratory 17 16 14 Rate Respiratory Rate [Back] Respiratory Rate [ Generalized] Blood Pressure 169/112 165/109 O2 Sat by Pulse 100 98 Oximetry 03/30/16 03/31/16 03/31/16 23:07 00:00 00:42 Temperature Pulse Rate 81 74 85 Pulse Rate [ From Monitor] Respiratory 15 14 Rate Respiratory Rate [Back] Respiratory Rate [ Generalized] Blood Pressure 165/109 175/111 159/95 O2 Sat by Pulse 99 98 100 Oximetry 03/31/16 03/31/16 03/31/16 01:00 01:17 02:00 Temperature Pulse Rate 77 70 72 Pulse Rate [ 77 From Monitor] Respiratory 14 14 15 Rate Respiratory Rate [Back] Respiratory Rate [ Generalized] Blood Pressure 178/118 181/109 166/98 O2 Sat by Pulse 98 99 98 Oximetry 03/31/16 03/31/16 03/31/16 03:00 03:40 04:01 Temperature Pulse Rate 74 75 87 Pulse Rate [ From Monitor] Respiratory 14 21 Rate Respiratory Rate [Back] Respiratory Rate [ Generalized] Blood Pressure 154/104 204/123 O2 Sat by Pulse 98 96 Oximetry 03/31/16 03/31/16 03/31/16 04:08 04:17 04:30 Temperature Pulse Rate 79 91 H 92 H Pulse Rate [ 92 H From Monitor] Respiratory 20 18 Rate Respiratory Rate [Back] Respiratory Rate [ Generalized] Blood Pressure 197/115 144/87 136/88 O2 Sat by Pulse 98 97 Oximetry 03/31/16 03/31/16 03/31/16 04:45 04:58 05:00 Temperature 99.0 F Pulse Rate 103 H 106 H Pulse Rate [ From Monitor] Respiratory 13 Rate Respiratory Rate [Back] Respiratory Rate [ Generalized] Blood Pressure 136/88 148/88 O2 Sat by Pulse 99 95 Oximetry 03/31/16 03/31/16 03/31/16 05:15 05:30 06:00 Temperature 98.7 F Pulse Rate 108 H 111 H Pulse Rate [ From Monitor] Respiratory 12 12 Rate Respiratory Rate [Back] Respiratory Rate [ Generalized] Blood Pressure 147/96 140/88 O2 Sat by Pulse 98 95 Oximetry 03/31/16 03/31/16 03/31/16 06:30 06:33 07:42 Temperature 98.9 F Pulse Rate 110 H 110 H Pulse Rate [ From Monitor] Respiratory 22 22 Rate Respiratory Rate [Back] Respiratory Rate [ Generalized] Blood Pressure 125/85 125/85 O2 Sat by Pulse 97 97 Oximetry 03/31/16 08:09 Temperature Pulse Rate 110 H Pulse Rate [ From Monitor] Respiratory Rate Respiratory Rate [Back] Respiratory Rate [ Generalized] Blood Pressure 157/103 O2 Sat by Pulse 97 Oximetry Constitutional: no acute distress, other (deeply lethargic) Eyes: non-icteric ENT: other (orally intubated and sedated) Neck: supple Effort: normal Ascultation: Bilateral: clear Percussion: Bilateral: not dull Cardiovascular: regular rate and rhythm Gastrointestinal: normoactive bowel sounds, soft, non-tender Neurologic: other (R ASS of -1) CBC and BMP: 03/31/16 05:15 03/31/16 05:15 ABG, PT/INR, D-dimer: ABG POC ABG pH 7.519 (7.35-7.45) H 03/31/16 05:02 POC ABG pCO2 21.8 (35-45) L 03/31/16 05:02 POC ABG pO2 142 (80-105) H 03/31/16 05:02 POC ABG HCO3 17.8 03/31/16 05:02 POC ABG Total CO2 18 03/31/16 05:02 POC ABG O2 Sat 99 03/31/16 05:02 PT/INR, D-dimer PT 14.6 Sec. (12.2-14.9) 03/24/16 14:00 INR 1.15 (0.87-1.13) H 03/24/16 14:00 Abnormal lab findings: Abnormal Labs 03/24/16 03/24/16 03/24/16 17:58 20:25 23:23 WBC RBC Hgb Hct MCV MCH MCHC Plt Count Lymph % (Auto) [place] % (Auto) Lymph # [place] # Seg Neutrophils % Seg Neuts % (Manual) Lymphocytes % (Manual) Seg Neutrophils # Seg Neutrophils # Man Lymphocytes # (Manual) Monocytes # (Manual) POC ABG pH POC ABG pCO2 POC ABG pO2 Sodium 169 H* Potassium 3.5 L Chloride 130.3 H Carbon Dioxide BUN 28 H Creatinine 1.8 H Glucose POC Glucose 112 H Calcium Phosphorus Lactate Dehydrogenase Total Creatine Kinase Albumin Mfxet-9-Zvcankxoj Xbzzh-0-Ffgkamvyd Beta Globulins PEP Interpretation Cholesterol 221 H LDL Cholesterol Direct 146 H 03/25/16 03/25/16 03/25/16 05:56 05:56 05:56 WBC 21.3 H RBC 6.32 H Hgb 16.7 H Hct 52.7 H MCV 83 L MCH 27 L MCHC Plt Count Lymph % (Auto) [place] % (Auto) Lymph # [place] # Seg Neutrophils % Seg Neuts % (Manual) 91.0 H Lymphocytes % (Manual) 4.0 L Seg Neutrophils # Seg Neutrophils # Man 19.4 H Lymphocytes # (Manual) 0.9 L Monocytes # (Manual) 0.9 H POC ABG pH POC ABG pCO2 POC ABG pO2 Sodium 172 H* Potassium 3.5 L Chloride 130.4 H Carbon Dioxide BUN 29 H Creatinine 1.8 H Glucose 187 H POC Glucose Calcium Phosphorus Lactate Dehydrogenase 460 H Total Creatine Kinase Albumin Noksv-2-Ehvgrhjla Afcdo-6-Wgkyoxyuz Beta Globulins PEP Interpretation Cholesterol LDL Cholesterol Direct 03/25/16 03/25/16 03/25/16 07:55 12:19 13:00 WBC RBC Hgb Hct MCV MCH MCHC Plt Count Lymph % (Auto) [place] % (Auto) Lymph # [place] # Seg Neutrophils % Seg Neuts % (Manual) Lymphocytes % (Manual) Seg Neutrophils # Seg Neutrophils # Man Lymphocytes # (Manual) Monocytes # (Manual) POC ABG pH POC ABG pCO2 POC ABG pO2 Sodium Potassium Chloride Carbon Dioxide BUN Creatinine Glucose POC Glucose 231 H 314 H Calcium Phosphorus Lactate Dehydrogenase Total Creatine Kinase Albumin 3.4 L Rambx-5-Xfiesiujm 0.4 H Oktgw-1-Mldijsebc 1.1 H Beta Globulins 0.6 H PEP Interpretation see below H Cholesterol LDL Cholesterol Direct 03/25/16 03/25/16 03/26/16 16:41 22:45 08:32 WBC RBC Hgb Hct MCV MCH MCHC Plt Count Lymph % (Auto) [place] % (Auto) Lymph # [place] # Seg Neutrophils % Seg Neuts % (Manual) Lymphocytes % (Manual) Seg Neutrophils # Seg Neutrophils # Man Lymphocytes # (Manual) Monocytes # (Manual) POC ABG pH POC ABG pCO2 POC ABG pO2 Sodium Potassium Chloride Carbon Dioxide BUN Creatinine Glucose POC Glucose 444 H 326 H 360 H Calcium Phosphorus Lactate Dehydrogenase Total Creatine Kinase Albumin Gnryj-6-Jmfxxkhja Ifgse-2-Qsdrppmyw Beta Globulins PEP Interpretation Cholesterol LDL Cholesterol Direct 03/26/16 03/26/16 03/26/16 12:38 15:33 15:47 WBC RBC Hgb Hct MCV MCH MCHC Plt Count Lymph % (Auto) [place] % (Auto) Lymph # [place] # Seg Neutrophils % Seg Neuts % (Manual) Lymphocytes % (Manual) Seg Neutrophils # Seg Neutrophils # Man Lymphocytes # (Manual) Monocytes # (Manual) POC ABG pH 7.511 H POC ABG pCO2 26.5 L POC ABG pO2 70 L Sodium Potassium Chloride Carbon Dioxide BUN Creatinine Glucose POC Glucose 280 H 174 H Calcium Phosphorus Lactate Dehydrogenase Total Creatine Kinase Albumin Mhvoh-4-Nplsnvdfg Mjdsf-0-Lbcbxmgsm Beta Globulins PEP Interpretation Cholesterol LDL Cholesterol Direct 03/26/16 03/26/16 03/26/16 16:47 16:47 18:51 WBC 14.0 H RBC 5.17 H Hgb Hct MCV MCH 26 L MCHC 31 L Plt Count 139 L Lymph % (Auto) [place] % (Auto) Lymph # [place] # Seg Neutrophils % Seg Neuts % (Manual) Lymphocytes % (Manual) Seg Neutrophils # Seg Neutrophils # Man Lymphocytes # (Manual) Monocytes # (Manual) POC ABG pH POC ABG pCO2 33.9 L POC ABG pO2 150 H Sodium 164 H* Potassium 3.4 L Chloride 128.5 H Carbon Dioxide BUN 30 H Creatinine 2.2 H Glucose 121 H POC Glucose Calcium 8.1 L Phosphorus Lactate Dehydrogenase Total Creatine Kinase Albumin Hkhjk-4-Dyufepgqf Cgjtl-3-Xuyxnpmwq Beta Globulins PEP Interpretation Cholesterol LDL Cholesterol Direct 03/27/16 03/27/16 03/27/16 02:19 05:47 06:02 WBC RBC Hgb Hct MCV MCH MCHC Plt Count Lymph % (Auto) [place] % (Auto) Lymph # [place] # Seg Neutrophils % Seg Neuts % (Manual) Lymphocytes % (Manual) Seg Neutrophils # Seg Neutrophils # Man Lymphocytes # (Manual) Monocytes # (Manual) POC ABG pH POC ABG pCO2 27.3 L 30.3 L POC ABG pO2 50 L 112 H Sodium 158 H Potassium Chloride 126.7 H Carbon Dioxide 20 L BUN 25 H Creatinine 1.7 H Glucose POC Glucose Calcium 7.0 L Phosphorus Lactate Dehydrogenase Total Creatine Kinase Albumin Ftmwk-1-Avjgzfozz Gdxfz-9-Oxeksiapi Beta Globulins PEP Interpretation Cholesterol LDL Cholesterol Direct 03/27/16 03/27/16 03/27/16 07:51 09:20 11:45 WBC 14.2 H RBC Hgb Hct MCV 83 L MCH 27 L MCHC Plt Count 113 L Lymph % (Auto) [place] % (Auto) Lymph # [place] # Seg Neutrophils % Seg Neuts % (Manual) Lymphocytes % (Manual) Seg Neutrophils # Seg Neutrophils # Man Lymphocytes # (Manual) Monocytes # (Manual) POC ABG pH POC ABG pCO2 POC ABG pO2 Sodium Potassium Chloride Carbon Dioxide BUN Creatinine Glucose POC Glucose 124 H 241 H Calcium Phosphorus Lactate Dehydrogenase Total Creatine Kinase Albumin Jrhky-6-Kqwtispln Xjbto-0-Zpmixtcba Beta Globulins PEP Interpretation Cholesterol LDL Cholesterol Direct 03/27/16 03/27/16 03/28/16 16:39 22:03 03:29 WBC RBC Hgb Hct MCV MCH MCHC Plt Count Lymph % (Auto) [place] % (Auto) Lymph # [place] # Seg Neutrophils % Seg Neuts % (Manual) Lymphocytes % (Manual) Seg Neutrophils # Seg Neutrophils # Man Lymphocytes # (Manual) Monocytes # (Manual) POC ABG pH POC ABG pCO2 POC ABG pO2 Sodium Potassium Chloride Carbon Dioxide BUN Creatinine Glucose POC Glucose 266 H 167 H 241 H Calcium Phosphorus Lactate Dehydrogenase Total Creatine Kinase Albumin Lwajr-0-Trgtdxqeh Uespj-0-Hiqsfrpxx Beta Globulins PEP Interpretation Cholesterol LDL Cholesterol Direct 03/28/16 03/28/1603/28/16 05:00 05:00 05:00 WBC RBC Hgb Hct MCV 83 L MCH 27 L MCHC Plt Count 106 L Lymph % (Auto) [place] % (Auto) 10.1 H Lymph # [place] # 1.0 H Seg Neutrophils % 75.1 H Seg Neuts % (Manual) Lymphocytes % (Manual) Seg Neutrophils # Seg Neutrophils # Man Lymphocytes # (Manual) Monocytes # (Manual) POC ABG pH POC ABG pCO2 POC ABG pO2 Sodium 147 H D Potassium 3.1 L D Chloride 112.3 H Carbon Dioxide 21 L BUN Creatinine Glucose 208 H POC Glucose Calcium 7.0 L Phosphorus 2.2 L Lactate Dehydrogenase Total Creatine Kinase Albumin Iicmv-3-Gwosktbif Iabnl-5-Zxjzqproy Beta Globulins PEP Interpretation Cholesterol LDL Cholesterol Direct 03/28/16 03/28/16 03/28/16 05:14 08:41 10:56 WBC RBC Hgb Hct MCV MCH MCHC Plt Count Lymph % (Auto) [place] % (Auto) Lymph # [place] # Seg Neutrophils % Seg Neuts % (Manual) Lymphocytes % (Manual) Seg Neutrophils # Seg Neutrophils # Man Lymphocytes # (Manual) Monocytes # (Manual) POC ABG pH 7.457 H POC ABG pCO2 29.7 L 27.7 L POC ABG pO2 Sodium Potassium Chloride Carbon Dioxide BUN Creatinine Glucose POC Glucose 228 H Calcium Phosphorus Lactate Dehydrogenase Total Creatine Kinase Albumin Ueesq-1-Kfrexwxyd Fnovn-3-Uywhzhkcv Beta Globulins PEP Interpretation Cholesterol LDL Cholesterol Direct 03/28/16 03/28/16 03/28/16 11:37 13:29 16:22 WBC RBC Hgb Hct MCV MCH MCHC Plt Count Lymph % (Auto) [place] % (Auto) Lymph # [place] # Seg Neutrophils % Seg Neuts % (Manual) Lymphocytes % (Manual) Seg Neutrophils # Seg Neutrophils # Man Lymphocytes # (Manual) Monocytes # (Manual) POC ABG pH POC ABG pCO2 POC ABG pO2 Sodium Potassium Chloride Carbon Dioxide BUN Creatinine Glucose POC Glucose 226 H 200 H Calcium Phosphorus Lactate Dehydrogenase Total Creatine Kinase 356 H Albumin Btbnm-1-Tlpqbqwzb Lpcrr-7-Cbynsngxn Beta Globulins PEP Interpretation Cholesterol LDL Cholesterol Direct 03/28/16 03/29/16 03/29/16 21:48 04:50 04:50 WBC RBC Hgb 11.5 L Hct 35.3 L MCV 81 L MCH 26 L MCHC Plt Count 97 L Lymph % (Auto) [place] % (Auto) 11.7 H Lymph # [place] # 1.1 H Seg Neutrophils % Seg Neuts % (Manual) Lymphocytes % (Manual) Seg Neutrophils # Seg Neutrophils # Man Lymphocytes # (Manual) Monocytes # (Manual) POC ABG pH POC ABG pCO2 POC ABG pO2 Sodium 136 L D Potassium 3.3 L Chloride Carbon Dioxide 20 L BUN Creatinine Glucose 386 H POC Glucose 188 H Calcium 6.8 L Phosphorus 1.6 L D Lactate Dehydrogenase Total Creatine Kinase Albumin Pewie-9-Paqiwcdmt Vitzr-8-Vzejyztsb Beta Globulins PEP Interpretation Cholesterol LDL Cholesterol Direct 03/29/16 03/29/16 03/29/16 08:10 11:12 16:09 WBC RBC Hgb Hct MCV MCH MCHC Plt Count Lymph % (Auto) [place] % (Auto) Lymph # [place] # Seg Neutrophils % Seg Neuts % (Manual) Lymphocytes % (Manual) Seg Neutrophils # Seg Neutrophils # Man Lymphocytes # (Manual) Monocytes # (Manual) POC ABG pH POC ABG pCO2 POC ABG pO2 Sodium Potassium Chloride Carbon Dioxide BUN Creatinine Glucose POC Glucose 230 H 180 H 46 L Calcium Phosphorus Lactate Dehydrogenase Total Creatine Kinase Albumin Nmgxx-2-Fdreschjm Nllyz-1-Djjrinkce Beta Globulins PEP Interpretation Cholesterol LDL Cholesterol Direct 03/29/16 03/29/16 03/30/16 16:12 18:15 02:53 WBC RBC Hgb Hct MCV MCH MCHC Plt Count Lymph % (Auto) [place] % (Auto) Lymph # [place] # Seg Neutrophils % Seg Neuts % (Manual) Lymphocytes % (Manual) Seg Neutrophils # Seg Neutrophils # Man Lymphocytes # (Manual) Monocytes # (Manual) POC ABG pH POC ABG pCO2 POC ABG pO2 Sodium Potassium Chloride Carbon Dioxide BUN Creatinine Glucose POC Glucose 52 L 118 H 130 H Calcium Phosphorus Lactate Dehydrogenase Total Creatine Kinase Albumin Aalzq-4-Mzomcowuv Itmzg-3-Ndawynlvr Beta Globulins PEP Interpretation Cholesterol LDL Cholesterol Direct 03/30/16 03/30/16 03/30/16 04:00 04:00 05:29 WBC RBC Hgb Hct MCV 81 L MCH 26 L MCHC Plt Count 116 L Lymph % (Auto) 10.8 L [place] % (Auto) 13.1 H Lymph # 1.0 L [place] # 1.3 H Seg Neutrophils % 74.2 H Seg Neuts % (Manual) Lymphocytes % (Manual) Seg Neutrophils # Seg Neutrophils # Man Lymphocytes # (Manual) Monocytes # (Manual) POC ABG pH 7.522 H POC ABG pCO2 22.7 L POC ABG pO2 137 H Sodium 147 H D Potassium Chloride 115.5 H Carbon Dioxide 20 L BUN Creatinine Glucose 116 H POC Glucose Calcium 7.6 L Phosphorus 2.3 L D Lactate Dehydrogenase Total Creatine Kinase Albumin Wuuwr-4-Tzxouiybo Nqvzj-4-Rebrcxosi Beta Globulins PEP Interpretation Cholesterol LDL Cholesterol Direct 03/30/16 03/30/16 03/30/16 05:47 08:05 08:59 WBC RBC Hgb Hct MCV MCH MCHC Plt Count Lymph % (Auto) [place] % (Auto) Lymph # [place] # Seg Neutrophils % Seg Neuts % (Manual) Lymphocytes % (Manual) Seg Neutrophils # Seg Neutrophils # Man Lymphocytes # (Manual) Monocytes # (Manual) POC ABG pH POC ABG pCO2 26.2 L POC ABG pO2 115 H Sodium Potassium Chloride Carbon Dioxide BUN Creatinine Glucose POC Glucose 138 H 171 H Calcium Phosphorus Lactate Dehydrogenase Total Creatine Kinase Albumin Vvsau-6-Qkitdszqi Tathe-8-Didccffdc Beta Globulins PEP Interpretation Cholesterol LDL Cholesterol Direct 03/30/16 03/30/16 03/30/16 12:11 12:11 16:39 WBC RBC Hgb Hct MCV MCH MCHC Plt Count Lymph % (Auto) [place] % (Auto) Lymph # [place] # Seg Neutrophils % Seg Neuts % (Manual) Lymphocytes % (Manual) Seg Neutrophils # Seg Neutrophils # Man Lymphocytes # (Manual) Monocytes # (Manual) POC ABG pH 7.476 H POC ABG pCO2 29.0 L POC ABG pO2 Sodium Potassium Chloride Carbon Dioxide BUN Creatinine Glucose POC Glucose 142 H 59 L Calcium Phosphorus Lactate Dehydrogenase Total Creatine Kinase Albumin Mbrhu-7-Cmpluaxaw Raqgj-8-Cbrkhkcjb Beta Globulins PEP Interpretation Cholesterol LDL Cholesterol Direct 03/30/16 03/30/16 03/31/16 18:41 21:59 05:02 WBC RBC Hgb Hct MCV MCH MCHC Plt Count Lymph % (Auto) [place] % (Auto) Lymph # [place] # Seg Neutrophils % Seg Neuts % (Manual) Lymphocytes % (Manual) Seg Neutrophils # Seg Neutrophils # Man Lymphocytes # (Manual) Monocytes # (Manual) POC ABG pH 7.519 H POC ABG pCO2 21.8 L POC ABG pO2 142 H Sodium Potassium Chloride Carbon Dioxide BUN Creatinine Glucose POC Glucose 145 H 154 H Calcium Phosphorus Lactate Dehydrogenase Total Creatine Kinase Albumin Cnyta-5-Ssdnppcle Zwsnx-1-Bgxbppuwm Beta Globulins PEP Interpretation Cholesterol LDL Cholesterol Direct 03/31/16 03/31/16 03/31/16 05:15 05:15 07:23 WBC 13.4 H RBC 5.21 H Hgb Hct MCV 81 L MCH 26 L MCHC Plt Count Lymph % (Auto) 9.5 L [place] % (Auto) 14.0 H Lymph # [place] # 1.9 H Seg Neutrophils % 75.0 H Seg Neuts % (Manual) Lymphocytes % (Manual) Seg Neutrophils # 10.1 H Seg Neutrophils # Man Lymphocytes # (Manual) Monocytes # (Manual) POC ABG pH POC ABG pCO2 POC ABG pO2 Sodium Potassium Chloride 108.5 H Carbon Dioxide 19 L BUN Creatinine Glucose 188 H POC Glucose 233 H Calcium Phosphorus Lactate Dehydrogenase Total Creatine Kinase Albumin Asoqd-4-Wrzzlcyen Kacdn-4-Bybksueyr Beta Globulins PEP Interpretation Cholesterol LDL Cholesterol Direct
--- NOTE | 2016-03-31 08:40 | XRay Report ---
AP CHEST: HISTORY: Follow-up respiratory failure. FINDINGS: Lines and tubes remain in good position. Mild cardiomegaly and ectatic aorta are stable. The lungs are clear. No significant change is demonstrated over multiple previous exams. IMPRESSION: No change.
[2016-03-31] MEDS: NOVOLOG SUB-Q SCH ×3 (09:18→18:01)
[2016-03-31] MEDS: KEPPRA PO SCH ×2 (09:19→21:43)
[2016-03-31] MEDS: PEPCID PO SCH ×2 (09:19→21:43)
[2016-03-31] MEDS: ASPIRIN PO SCH (09:19)
[2016-03-31] MEDS: CORDARONE PO SCH (09:20)
[2016-03-31] MEDS: ROCEPHIN/NS 1 GM/50 ML 50 ML IV SCH (09:20)
--- NOTE | 2016-03-31 10:26 | Progress Note ---
Assessment and Plan Acute respiratory failure. AMS. I still patient appears disoriented although responsive to calls Some chest congestion still noted. CXR unrevealing. Hiccups.Causing increased RR Recommendations Update BNP prn Thorazine Check EKG x QTc changes Check Na,free water CC time 32 min Subjective Date of service: 03/31/16 Interval history: Intubated Objective Vital Signs - 12hr 03/30/16 03/30/16 03/30/16 22:39 23:00 23:07 Temperature Pulse Rate 82 81 81 Pulse Rate [ From Monitor] Respiratory 16 14 15 Rate Blood Pressure 169/112 165/109 165/109 O2 Sat by Pulse 100 98 99 Oximetry 03/31/16 03/31/16 03/31/16 00:00 00:42 01:00 Temperature Pulse Rate 74 85 77 Pulse Rate [ 77 From Monitor] Respiratory 14 14 Rate Blood Pressure 175/111 159/95 178/118 O2 Sat by Pulse 98 100 98 Oximetry 03/31/16 03/31/16 03/31/16 01:17 02:00 03:00 Temperature Pulse Rate 70 72 74 Pulse Rate [ From Monitor] Respiratory 14 15 14 Rate Blood Pressure 181/109 166/98 154/104 O2 Sat by Pulse 99 98 98 Oximetry 03/31/16 03/31/16 03/31/16 03:40 04:01 04:08 Temperature Pulse Rate 75 87 79 Pulse Rate [ From Monitor] Respiratory 21 Rate Blood Pressure 204/123 197/115 O2 Sat by Pulse 96 Oximetry 03/31/16 03/31/16 03/31/16 04:17 04:30 04:45 Temperature Pulse Rate 91 H 92 H 103 H Pulse Rate [ 92 H From Monitor] Respiratory 20 18 Rate Blood Pressure 144/87 136/88 136/88 O2 Sat by Pulse 98 97 99 Oximetry 03/31/16 03/31/16 03/31/16 04:58 05:00 05:15 Temperature 99.0 F 98.7 F Pulse Rate 106 H Pulse Rate [ From Monitor] Respiratory 13 Rate Blood Pressure 148/88 O2 Sat by Pulse 95 Oximetry 03/31/16 03/31/16 03/31/16 05:30 06:00 06:30 Temperature Pulse Rate 108 H 111 H 110 H Pulse Rate [ From Monitor] Respiratory 12 12 22 Rate Blood Pressure 147/96 140/88 125/85 O2 Sat by Pulse 98 95 97 Oximetry 03/31/16 03/31/16 03/31/16 06:33 07:42 08:09 Temperature 98.9 F Pulse Rate 110 H 110 H Pulse Rate [ From Monitor] Respiratory 22 Rate Blood Pressure 125/85 157/103 O2 Sat by Pulse 97 97 Oximetry Constitutional: no acute distress, other (deeply lethargic) Eyes: non-icteric ENT: other (orally intubated and sedated) Neck: supple Effort: normal Ascultation: Bilateral: clear Percussion: Bilateral: not dull Cardiovascular: regular rate and rhythm Gastrointestinal: normoactive bowel sounds, soft, non-tender Neurologic: other (R ASS of -1) CBC and BMP: 03/31/16 05:15 03/31/16 05:15 ABG, PT/INR, D-dimer: ABG POC ABG pH 7.519 (7.35-7.45) H 03/31/16 05:02 POC ABG pCO2 21.8 (35-45) L 03/31/16 05:02 POC ABG pO2 142 (80-105) H 03/31/16 05:02 POC ABG HCO3 17.8 03/31/16 05:02 POC ABG Total CO2 18 03/31/16 05:02 POC ABG O2 Sat 99 03/31/16 05:02 PT/INR, D-dimer PT 14.6 Sec. (12.2-14.9) 03/24/16 14:00 INR 1.15 (0.87-1.13) H 03/24/16 14:00 Abnormal lab findings: Abnormal Labs 03/24/16 03/24/16 03/24/16 17:58 20:25 23:23 WBC RBC Hgb Hct MCV MCH MCHC Plt Count Lymph % (Auto) Ida % (Auto) Lymph # Ida # Seg Neutrophils % Seg Neuts % (Manual) Lymphocytes % (Manual) Seg Neutrophils # Seg Neutrophils # Man Lymphocytes # (Manual) Monocytes # (Manual) POC ABG pH POC ABG pCO2 POC ABG pO2 Sodium 169 H* Potassium 3.5 L Chloride 130.3 H Carbon Dioxide BUN 28 H Creatinine 1.8 H Glucose POC Glucose 112 H Calcium Phosphorus Lactate Dehydrogenase Total Creatine Kinase Albumin Ttqkr-2-Ftdhzazbj Lonbw-9-Vrriagimf Beta Globulins PEP Interpretation Cholesterol 221 H LDL Cholesterol Direct 146 H 03/25/16 03/25/16 03/25/16 05:56 05:56 05:56 WBC 21.3 H RBC 6.32 H Hgb 16.7 H Hct 52.7 H MCV 83 L MCH 27 L MCHC Plt Count Lymph % (Auto) Ida % (Auto) Lymph # Ida # Seg Neutrophils % Seg Neuts % (Manual) 91.0 H Lymphocytes % (Manual) 4.0 L Seg Neutrophils # Seg Neutrophils # Man 19.4 H Lymphocytes # (Manual) 0.9 L Monocytes # (Manual) 0.9 H POC ABG pH POC ABG pCO2 POC ABG pO2 Sodium 172 H* Potassium 3.5 L Chloride 130.4 H Carbon Dioxide BUN 29 H Creatinine 1.8 H Glucose 187 H POC Glucose Calcium Phosphorus Lactate Dehydrogenase 460 H Total Creatine Kinase Albumin Mawgj-4-Udvkkajoj Gfwdf-7-Hbrxaonzm Beta Globulins PEP Interpretation Cholesterol LDL Cholesterol Direct 03/25/16 03/25/16 03/25/16 07:55 12:19 13:00 WBC RBC Hgb Hct MCV MCH MCHC Plt Count Lymph % (Auto) Ida % (Auto) Lymph # Ida # Seg Neutrophils % Seg Neuts % (Manual) Lymphocytes % (Manual) Seg Neutrophils # Seg Neutrophils # Man Lymphocytes # (Manual) Monocytes # (Manual) POC ABG pH POC ABG pCO2 POC ABG pO2 Sodium Potassium Chloride Carbon Dioxide BUN Creatinine Glucose POC Glucose 231 H 314 H Calcium Phosphorus Lactate Dehydrogenase Total Creatine Kinase Albumin 3.4 L Sujtk-7-Lylzwmwba 0.4 H Kbczo-6-Cvtqriqqm 1.1 H Beta Globulins 0.6 H PEP Interpretation see below H Cholesterol LDL Cholesterol Direct 03/25/16 03/25/16 03/26/16 16:41 22:45 08:32 WBC RBC Hgb Hct MCV MCH MCHC Plt Count Lymph % (Auto) Ida % (Auto) Lymph # Ida # Seg Neutrophils % Seg Neuts % (Manual) Lymphocytes % (Manual) Seg Neutrophils # Seg Neutrophils # Man Lymphocytes # (Manual) Monocytes # (Manual) POC ABG pH POC ABG pCO2 POC ABG pO2 Sodium Potassium Chloride Carbon Dioxide BUN Creatinine Glucose POC Glucose 444 H 326 H 360 H Calcium Phosphorus Lactate Dehydrogenase Total Creatine Kinase Albumin Ykwdk-2-Qcaayjfhh Mixaa-6-Oceydduqf Beta Globulins PEP Interpretation Cholesterol LDL Cholesterol Direct 03/26/16 03/26/16 03/26/16 12:38 15:33 15:47 WBC RBC Hgb Hct MCV MCH MCHC Plt Count Lymph % (Auto) Ida % (Auto) Lymph # Ida # Seg Neutrophils % Seg Neuts % (Manual) Lymphocytes % (Manual) Seg Neutrophils # Seg Neutrophils # Man Lymphocytes # (Manual) Monocytes # (Manual) POC ABG pH 7.511 H POC ABG pCO2 26.5 L POC ABG pO2 70 L Sodium Potassium Chloride Carbon Dioxide BUN Creatinine Glucose POC Glucose 280 H 174 H Calcium Phosphorus Lactate Dehydrogenase Total Creatine Kinase Albumin Nbmvr-5-Suduxwoet Mugqu-2-Msjvlvink Beta Globulins PEP Interpretation Cholesterol LDL Cholesterol Direct 03/26/16 03/26/16 03/26/16 16:47 16:47 18:51 WBC 14.0 H RBC 5.17 H Hgb Hct MCV MCH 26 L MCHC 31 L Plt Count 139 L Lymph % (Auto) Ida % (Auto) Lymph # Ida # Seg Neutrophils % Seg Neuts % (Manual) Lymphocytes % (Manual) Seg Neutrophils # Seg Neutrophils # Man Lymphocytes # (Manual) Monocytes # (Manual) POC ABG pH POC ABG pCO2 33.9 L POC ABG pO2 150 H Sodium 164 H* Potassium 3.4 L Chloride 128.5 H Carbon Dioxide BUN 30 H Creatinine 2.2 H Glucose 121 H POC Glucose Calcium 8.1 L Phosphorus Lactate Dehydrogenase Total Creatine Kinase Albumin Xcnas-6-Pawobhhei Msmgo-9-Fkusgotwq Beta Globulins PEP Interpretation Cholesterol LDL Cholesterol Direct 03/27/16 03/27/16 03/27/16 02:19 05:47 06:02 WBC RBC Hgb Hct MCV MCH MCHC Plt Count Lymph % (Auto) Ida % (Auto) Lymph # Ida # Seg Neutrophils % Seg Neuts % (Manual) Lymphocytes % (Manual) Seg Neutrophils # Seg Neutrophils # Man Lymphocytes # (Manual) Monocytes # (Manual) POC ABG pH POC ABG pCO2 27.3 L 30.3 L POC ABG pO2 50 L 112 H Sodium 158 H Potassium Chloride 126.7 H Carbon Dioxide 20 L BUN 25 H Creatinine 1.7 H Glucose POC Glucose Calcium 7.0 L Phosphorus Lactate Dehydrogenase Total Creatine Kinase Albumin Pjdur-8-Xqoztobsr Zwkbs-5-Etbokdczl Beta Globulins PEP Interpretation Cholesterol LDL Cholesterol Direct 03/27/16 03/27/16 03/27/16 07:51 09:20 11:45 WBC 14.2 H RBC Hgb Hct MCV 83 L MCH 27 L MCHC Plt Count 113 L Lymph % (Auto) Ida % (Auto) Lymph # Ida # Seg Neutrophils % Seg Neuts % (Manual) Lymphocytes % (Manual) Seg Neutrophils # Seg Neutrophils # Man Lymphocytes # (Manual) Monocytes # (Manual) POC ABG pH POC ABG pCO2 POC ABG pO2 Sodium Potassium Chloride Carbon Dioxide BUN Creatinine Glucose POC Glucose 124 H 241 H Calcium Phosphorus Lactate Dehydrogenase Total Creatine Kinase Albumin Zhnjb-2-Xhelgsfkq Hciry-7-Rdfxrkoyq Beta Globulins PEP Interpretation Cholesterol LDL Cholesterol Direct 03/27/16 03/27/16 03/28/16 16:39 22:03 03:29 WBC RBC Hgb Hct MCV MCH MCHC Plt Count Lymph % (Auto) Ida % (Auto) Lymph # Ida # Seg Neutrophils % Seg Neuts % (Manual) Lymphocytes % (Manual) Seg Neutrophils # Seg Neutrophils # Man Lymphocytes # (Manual) Monocytes # (Manual) POC ABG pH POC ABG pCO2 POC ABG pO2 Sodium Potassium Chloride Carbon Dioxide BUN Creatinine Glucose POC Glucose 266 H 167 H 241 H Calcium Phosphorus Lactate Dehydrogenase Total Creatine Kinase Albumin Irtix-8-Quxyvtxss Vddqh-0-Ethfbtijv Beta Globulins PEP Interpretation Cholesterol LDL Cholesterol Direct 03/28/16 03/28/16 03/28/16 05:00 05:00 05:00 WBC RBC Hgb Hct MCV 83 L MCH 27 L MCHC Plt Count 106 L Lymph % (Auto) Ida % (Auto) 10.1 H Lymph # Ida # 1.0 H Seg Neutrophils % 75.1 H Seg Neuts % (Manual) Lymphocytes % (Manual) Seg Neutrophils # Seg Neutrophils # Man Lymphocytes # (Manual) Monocytes # (Manual) POC ABG pH POC ABG pCO2 POC ABG pO2 Sodium 147 H D Potassium 3.1 L D Chloride 112.3 H Carbon Dioxide 21 L BUN Creatinine Glucose 208 H POC Glucose Calcium 7.0 L Phosphorus 2.2 L Lactate Dehydrogenase Total Creatine Kinase Albumin Oadfi-8-Sfumguvjx Fthcm-8-Eiohhrwtd Beta Globulins PEP Interpretation Cholesterol LDL Cholesterol Direct 03/28/16 03/28/16 03/28/16 05:14 08:41 10:56 WBC RBC Hgb Hct MCV MCH MCHC Plt Count Lymph % (Auto) Ida % (Auto) Lymph # Ida # Seg Neutrophils % Seg Neuts % (Manual) Lymphocytes % (Manual) Seg Neutrophils # Seg Neutrophils # Man Lymphocytes # (Manual) Monocytes # (Manual) POC ABG pH 7.457 H POC ABG pCO2 29.7 L 27.7 L POC ABG pO2 Sodium Potassium Chloride Carbon Dioxide BUN Creatinine Glucose POC Glucose 228 H Calcium Phosphorus Lactate Dehydrogenase Total Creatine Kinase Albumin Kphqf-8-Uvyvoixgm Iifnm-7-Ijqqqubph Beta Globulins PEP Interpretation Cholesterol LDL Cholesterol Direct 03/28/16 03/28/16 03/28/16 11:37 13:29 16:22 WBC RBC Hgb Hct MCV MCH MCHC Plt Count Lymph % (Auto) Ida % (Auto) Lymph # Ida # Seg Neutrophils % Seg Neuts % (Manual) Lymphocytes % (Manual) Seg Neutrophils # Seg Neutrophils # Man Lymphocytes # (Manual) Monocytes # (Manual) POC ABG pH POC ABG pCO2 POC ABG pO2 Sodium Potassium Chloride Carbon Dioxide BUN Creatinine Glucose POC Glucose 226 H 200 H Calcium Phosphorus Lactate Dehydrogenase Total Creatine Kinase 356 H Albumin Uhvxx-6-Jsmvgcryv Xvjze-1-Ellpnrpaj Beta Globulins PEP Interpretation Cholesterol LDL Cholesterol Direct 03/28/16 03/29/16 03/29/16 21:48 04:50 04:50 WBC RBC Hgb 11.5 L Hct 35.3 L MCV 81 L MCH 26 L MCHC Plt Count 97 L Lymph % (Auto) Ida % (Auto) 11.7 H Lymph # Ida # 1.1 H Seg Neutrophils % Seg Neuts % (Manual) Lymphocytes % (Manual) Seg Neutrophils # Seg Neutrophils # Man Lymphocytes # (Manual) Monocytes # (Manual) POC ABG pH POC ABG pCO2 POC ABG pO2 Sodium 136 L D Potassium 3.3 L Chloride Carbon Dioxide 20 L BUN Creatinine Glucose 386 H POC Glucose 188 H Calcium 6.8 L Phosphorus 1.6 L D Lactate Dehydrogenase Total Creatine Kinase Albumin Gsjfp-5-Lddzefghu Tffmg-9-Buifagmmc Beta Globulins PEP Interpretation Cholesterol LDL Cholesterol Direct 03/29/16 03/29/16 03/29/16 08:10 11:12 16:09 WBC RBC Hgb Hct MCV MCH MCHC Plt Count Lymph % (Auto) Ida % (Auto) Lymph # Ida # Seg Neutrophils % Seg Neuts % (Manual) Lymphocytes % (Manual) Seg Neutrophils # Seg Neutrophils # Man Lymphocytes # (Manual) Monocytes # (Manual) POC ABG pH POC ABG pCO2 POC ABG pO2 Sodium Potassium Chloride Carbon Dioxide BUN Creatinine Glucose POC Glucose 230 H 180 H 46 L Calcium Phosphorus Lactate Dehydrogenase Total Creatine Kinase Albumin Tdlbz-3-Ghyslmdcb Rcusk-9-Ibfdpvgyh Beta Globulins PEP Interpretation Cholesterol LDL Cholesterol Direct 03/29/16 03/29/16 03/30/16 16:12 18:15 02:53 WBC RBC Hgb Hct MCV MCH MCHC Plt Count Lymph % (Auto) Ida % (Auto) Lymph # Ida # Seg Neutrophils % Seg Neuts % (Manual) Lymphocytes % (Manual) Seg Neutrophils # Seg Neutrophils # Man Lymphocytes # (Manual) Monocytes # (Manual) POC ABG pH POC ABG pCO2 POC ABG pO2 Sodium Potassium Chloride Carbon Dioxide BUN Creatinine Glucose POC Glucose 52 L 118 H 130 H Calcium Phosphorus Lactate Dehydrogenase Total Creatine Kinase Albumin Jnctr-4-Rpfvjqpfm Gqlio-4-Omfxygejo Beta Globulins PEP Interpretation Cholesterol LDL Cholesterol Direct 03/30/16 03/30/16 03/30/16 04:00 04:00 05:29 WBC RBC Hgb Hct MCV 81 L MCH 26 L MCHC Plt Count 116 L Lymph % (Auto) 10.8 L Ida % (Auto) 13.1 H Lymph # 1.0 L Ida # 1.3 H Seg Neutrophils % 74.2 H Seg Neuts % (Manual) Lymphocytes % (Manual) Seg Neutrophils # Seg Neutrophils # Man Lymphocytes # (Manual) Monocytes # (Manual) POC ABG pH 7.522 H POC ABG pCO2 22.7 L POC ABG pO2 137 H Sodium 147 H D Potassium Chloride 115.5 H Carbon Dioxide 20 L BUN Creatinine Glucose 116 H POC Glucose Calcium 7.6 L Phosphorus 2.3 L D Lactate Dehydrogenase Total Creatine Kinase Albumin Bltsa-2-Pkdntalhw Bfoww-8-Celojjxft Beta Globulins PEP Interpretation Cholesterol LDL Cholesterol Direct 03/30/16 03/30/16 03/30/16 05:47 08:05 08:59 WBC RBC Hgb Hct MCV MCH MCHC Plt Count Lymph % (Auto) Ida % (Auto) Lymph # Ida # Seg Neutrophils % Seg Neuts % (Manual) Lymphocytes % (Manual) Seg Neutrophils # Seg Neutrophils # Man Lymphocytes # (Manual) Monocytes # (Manual) POC ABG pH POC ABG pCO2 26.2 L POC ABG pO2 115 H Sodium Potassium Chloride Carbon Dioxide BUN Creatinine Glucose POC Glucose 138 H 171 H Calcium Phosphorus Lactate Dehydrogenase Total Creatine Kinase Albumin Xzmbj-7-Xodncylef Qwdmd-1-Eetwnrqgq Beta Globulins PEP Interpretation Cholesterol LDL Cholesterol Direct 03/30/16 03/30/16 03/30/16 12:11 12:11 16:39 WBC RBC Hgb Hct MCV MCH MCHC Plt Count Lymph % (Auto) Ida % (Auto) Lymph # Ida # Seg Neutrophils % Seg Neuts % (Manual) Lymphocytes % (Manual) Seg Neutrophils # Seg Neutrophils # Man Lymphocytes # (Manual) Monocytes # (Manual) POC ABG pH 7.476 H POC ABG pCO2 29.0 L POC ABG pO2 Sodium Potassium Chloride Carbon Dioxide BUN Creatinine Glucose POC Glucose 142 H 59 L Calcium Phosphorus Lactate Dehydrogenase Total Creatine Kinase Albumin Tjmxe-9-Kgctyzhzs Voifq-6-Rxfkssjoy Beta Globulins PEP Interpretation Cholesterol LDL Cholesterol Direct 03/30/16 03/30/16 03/31/16 18:41 21:59 05:02 WBC RBC Hgb Hct MCV MCH MCHC Plt Count Lymph % (Auto) Ida % (Auto) Lymph # Ida # Seg Neutrophils % Seg Neuts % (Manual) Lymphocytes % (Manual) Seg Neutrophils # Seg Neutrophils # Man Lymphocytes # (Manual) Monocytes # (Manual) POC ABG pH 7.519 H POC ABG pCO2 21.8 L POC ABG pO2 142 H Sodium Potassium Chloride Carbon Dioxide BUN Creatinine Glucose POC Glucose 145 H 154 H Calcium Phosphorus Lactate Dehydrogenase Total Creatine Kinase Albumin Oeoxt-2-Gwxdgyted Ysmro-0-Lbutrznqh Beta Globulins PEP Interpretation Cholesterol LDL Cholesterol Direct 03/31/16 03/31/16 03/31/16 05:15 05:15 07:23 WBC 13.4 H RBC 5.21 H Hgb Hct MCV 81 L MCH 26 L MCHC Plt Count Lymph % (Auto) 9.5 L Ida % (Auto) 14.0 H Lymph # Ida # 1.9 H Seg Neutrophils % 75.0 H Seg Neuts % (Manual) Lymphocytes % (Manual) Seg Neutrophils # 10.1 H Seg Neutrophils # Man Lymphocytes # (Manual) Monocytes # (Manual) POC ABG pH POC ABG pCO2 POC ABG pO2 Sodium Potassium Chloride 108.5 H Carbon Dioxide 19 L BUN Creatinine Glucose 188 H POC Glucose 233 H Calcium Phosphorus Lactate Dehydrogenase Total Creatine Kinase Albumin Hihef-0-Dbfcvgcmf Kxozz-2-Nyqnvtgme Beta Globulins PEP Interpretation Cholesterol LDL Cholesterol Direct
--- NOTE | 2016-03-31 10:32 | Progress Note ---
Assessment and Plan Acute respiratory failure requiring intubation no evidence of PE by V\Q scan Acute CVA Abnormal ECG no significant CAD by LHC 08/2015 Hx of aortic dissection s/p repair Hx of bioprosthetic aortic valve replacement normal function on echo 08/2015 Hypertension Supportive cardiac management. Subjective Date of service: 03/31/16 Interval history: Patient awake and alert, remains intubated on the vent. BP not optimal, currently 174/108. Objective Vital Signs Temp Pulse Pulse Resp Resp Resp BP 03/31/16 08:09 110 H 157/103 03/31/16 07:42 98.9 F 03/31/16 06:33 110 H 22 125/85 03/31/16 06:30 110 H 22 125/85 03/31/16 06:00 111 H 12 140/88 03/31/16 05:30 108 H 12 147/96 03/31/16 05:15 98.7 F 03/31/16 05:00 106 H 13 148/88 03/31/16 04:58 99.0 F 03/31/16 04:45 103 H 136/88 03/31/16 04:30 92 H 92 H 18 136/88 03/31/16 04:17 91 H 20 144/87 03/31/16 04:08 79 197/115 03/31/16 04:01 87 21 204/123 03/31/16 03:40 75 03/31/16 03:00 74 14 154/104 03/31/16 02:00 72 15 166/98 03/31/16 01:17 70 14 181/109 03/31/16 01:00 77 77 14 178/118 03/31/16 00:42 85 159/95 03/31/16 00:00 74 14 175/111 03/30/16 23:07 81 15 165/109 03/30/16 23:00 81 14 165/109 03/30/16 22:39 82 16 169/112 03/30/16 22:02 17 03/30/16 22:01 85 17 169/112 03/30/16 22:00 83 166/98 03/30/16 21:02 14 03/30/16 21:01 90 13 169/112 03/30/16 21:00 90 13 16 16 03/30/16 20:58 98.8 F 03/30/16 20:01 79 11 L 173/110 03/30/16 19:23 69 14 173/110 03/30/16 19:01 73 11 L 187/103 03/30/16 18:01 69 13 187/103 03/30/16 17:19 74 170/101 03/30/16 17:03 75 20 170/101 03/30/16 17:01 74 19 170/101 03/30/16 16:45 71 170/101 03/30/16 16:11 73 21 170/101 03/30/16 16:01 71 14 170/101 03/30/16 16:00 98.5 F 74 03/30/16 15:42 72 11 L 170/101 03/30/16 15:01 75 11 L 170/101 03/30/16 14:05 71 17 170/101 03/30/16 14:01 70 18 170/101 03/30/16 13:00 74 10 L 159/96 03/30/16 12:20 76 142/96 03/30/16 12:03 75 19 142/96 03/30/16 12:00 98.3 F 76 78 21 142/96 03/30/16 11:41 82 19 156/96 03/30/16 11:00 88 17 156/96 Pulse Ox 03/31/16 08:09 97 03/31/16 07:42 03/31/16 06:33 97 03/31/16 06:30 97 03/31/16 06:00 95 03/31/16 05:30 98 03/31/16 05:15 03/31/16 05:00 95 03/31/16 04:58 03/31/16 04:45 99 03/31/16 04:30 97 03/31/16 04:17 98 03/31/16 04:08 03/31/16 04:01 96 03/31/16 03:40 03/31/16 03:00 98 03/31/16 02:00 98 03/31/16 01:17 99 03/31/16 01:00 98 03/31/16 00:42 100 03/31/16 00:00 98 03/30/16 23:07 99 03/30/16 23:00 98 03/30/16 22:39 100 03/30/16 22:02 03/30/16 22:01 99 03/30/16 22:00 99 03/30/16 21:02 03/30/16 21:01 100 03/30/16 21:00 100 03/30/16 20:58 03/30/16 20:01 99 03/30/16 19:23 96 03/30/16 19:01 100 03/30/16 18:01 98 03/30/16 17:19 99 03/30/16 17:03 100 03/30/16 17:01 99 03/30/16 16:45 100 03/30/16 16:11 99 03/30/16 16:01 100 03/30/16 16:00 03/30/16 15:42 100 03/30/16 15:01 99 03/30/16 14:05 100 03/30/16 14:01 100 03/30/16 13:00 97 03/30/16 12:20 99 03/30/16 12:03 99 03/30/16 12:00 99 03/30/16 11:41 99 03/30/16 11:00 99 - Physical Examination General: Other (VENT) Cardiac: Positive: Reg Rate and Rhythm Extremities: Present: normal - Labs and Meds CBC 03/31/16 Range/Units 05:15 WBC 13.4 H (4.5-11.0) K/mm3 RBC 5.21 H (3.65-5.03) M/mm3 Hgb 13.7 (11.8-15.2) gm/dl Hct 42.2 (35.5-45.6) % Plt Count 182 (140-440) K/mm3 Lymph # 1.3 (1.2-5.4) K/mm3 Hayes # 1.9 H (0.0-0.8) K/mm3 Eos # 0.1 (0.0-0.4) K/mm3 Baso # 0.1 (0.0-0.1) K/mm3 Comprehensive Metabolic Panel 03/31/16 Range/Units 05:15 Sodium 145 (137-145) mmol/L Potassium 4.0 (3.6-5.0) mmol/L Chloride 108.5 H (98-107) mmol/L Carbon Dioxide 19 L (22-30) mmol/L BUN 13 (9-20) mg/dL Creatinine 1.1 (0.8-1.5) mg/dL Glucose 188 H (75-100) mg/dL Calcium 8.5 (8.4-10.2) mg/dL - Imaging and Cardiology EKG: image reviewed
--- NOTE | 2016-03-31 11:19 | Progress Note ---
Assessment and Plan Assessment and plan: 1. Acute respiratory failure-continue vent management as per critical care 2. Acute CVA. CT scan revealed acute ischemic infarct in the right if her cerebellum. Repeat CT scan in the next 24-48 hours. Consider neurosurgical consultation. MRA versus CTA to look at posterior circulation. Continue aspirin and statin. 3. Hypernatremia -resolved. Continue to monitor BMP. 4. Metabolic encephalopathy-f/u MRI/MRA head/neck and EEG; continue management as discussed above. 5. Group B strep UTI-continue IV ceftriaxone; wbc normal and afebrile 6. Accelerated hypertension. Resume all medications of lisinopril and labetalol 7. CAD-stable, continue current beta em, statin 8. Seizures-continue Keppra; f/u EEG. We will discuss with neuro. 9. Diabetes type 2 with insulin dependence-continue insulin regime, continue to monitor Accu-Cheks 10. Mild hypokelemia- improving; will replace with po supplementation; hypophosphatemia- will replace and monitor 11. DVT prophylaxis-Lovenox 12. GI prophylaxis-Pepcid The high probability of a clinically significant, sudden or life threatening deterioration of the [respiratory and neurological] system(s) required my full and direct attention, intervention and personal management. The aggregate critical care time was [31] minutes. This time is in addition to time spent performing reported procedures but includes the following: [x] Data Review and interpretation [x] Patient assessment and monitoring of vital signs [x] Documentation [x] Medication orders and management History Interval history: Patient is currently intubated with no new issues overnight. Hospitalist Physical - Constitutional Vitals: Temp Pulse Resp BP Pulse Ox 98.9 F 110 H 22 157/103 97 03/31/16 07:42 03/31/16 08:09 03/31/16 06:33 03/31/16 08:09 03/31/16 08:09 General appearance: Present: other (vented) - EENT Eyes: Present: PERRL, EOM intact ENT: hearing intact, clear oral mucosa, dentition normal - Neck Neck: Present: supple, normal ROM - Respiratory Respiratory effort: normal Respiratory: bilateral: diminished - Cardiovascular Rhythm: regular Heart Sounds: Present: S1 & S2. Absent: gallop, rub - Extremities Extremities: no ischemia, No edema, Full ROM - Abdominal General gastrointestinal: soft, non-tender, non-distended, normal bowel sounds - Integumentary Integumentary: Present: clear, warm, dry - Neurologic Neurologic: CNII-XII intact, moves all extremities Results - Labs CBC & Chem 7: 03/31/16 05:15 03/31/16 05:15 Labs: Laboratory Last Values WBC 13.4 K/mm3 (4.5-11.0) H 03/31/16 05:15 RBC 5.21 M/mm3 (3.65-5.03) H 03/31/16 05:15 Hgb 13.7 gm/dl (11.8-15.2) 03/31/16 05:15 Hct 42.2 % (35.5-45.6) 03/31/16 05:15 MCV 81 fl (84-94) L 03/31/16 05:15 MCH 26 pg (28-32) L 03/31/16 05:15 MCHC 32 % (32-34) 03/31/16 05:15 RDW 14.4 % (13.2-15.2) 03/31/16 05:15 Plt Count 182 K/mm3 (140-440) 03/31/16 05:15 Lymph % (Auto) 9.5 % (13.4-35.0) L 03/31/16 05:15 [place] % (Auto) 14.0 % (0.0-7.3) H 03/31/16 05:15 Eos % (Auto) 1.1 % (0.0-4.3) 03/31/16 05:15 Baso % (Auto) 0.4 % (0.0-1.8) 03/31/16 05:15 Lymph # 1.3 K/mm3 (1.2-5.4) 03/31/16 05:15 [place] # 1.9 K/mm3 (0.0-0.8) H 03/31/16 05:15 Eos # 0.1 K/mm3 (0.0-0.4) 03/31/16 05:15 Baso # 0.1 K/mm3 (0.0-0.1) 03/31/16 05:15 Add Manual Diff Complete 03/25/16 05:56 Total Counted 100 03/25/16 05:56 Seg Neutrophils % 75.0 % (40.0-70.0) H 03/31/16 05:15 Seg Neuts % (Manual) 91.0 % (40.0-70.0) H 03/25/16 05:56 Band Neutrophils % 1.0 % 03/25/16 05:56 Lymphocytes % (Manual) 4.0 % (13.4-35.0) L 03/25/16 05:56 Reactive Lymphs % (Man) 0 % 03/25/16 05:56 Monocytes % (Manual) 4.0 % (0.0-7.3) 03/25/16 05:56 Eosinophils % (Manual) 0 % (0.0-4.3) 03/25/16 05:56 Basophils % (Manual) 0 % (0.0-1.8) 03/25/16 05:56 Metamyelocytes % 0 % 03/25/16 05:56 Myelocytes % 0 % 03/25/16 05:56 Promyelocytes % 0 % 03/25/16 05:56 Blast Cells % 0 % 03/25/16 05:56 Nucleated RBC % Not Reportable 03/25/16 05:56 Seg Neutrophils # 10.1 K/mm3 (1.8-7.7) H 03/31/16 05:15 Seg Neutrophils # Man 19.4 K/mm3 (1.8-7.7) H 03/25/16 05:56 Band Neutrophils # 0.2 K/mm3 03/25/16 05:56 Lymphocytes # (Manual) 0.9 K/mm3 (1.2-5.4) L 03/25/16 05:56 Abs React Lymphs (Man) 0.0 K/mm3 03/25/16 05:56 Monocytes # (Manual) 0.9 K/mm3 (0.0-0.8) H 03/25/16 05:56 Eosinophils # (Manual) 0.0 K/mm3 (0.0-0.4) 03/25/16 05:56 Basophils # (Manual) 0.0 K/mm3 (0.0-0.1) 03/25/16 05:56 Metamyelocytes # 0.0 K/mm3 03/25/16 05:56 Myelocytes # 0.0 K/mm3 03/25/16 05:56 Promyelocytes # 0.0 K/mm3 03/25/16 05:56 Blast Cells # 0.0 K/mm3 03/25/16 05:56 WBC Morphology Not Reportable 03/25/16 05:56 Hypersegmented Neuts Not Reportable 03/25/16 05:56 Hyposegmented Neuts Not Reportable 03/25/16 05:56 Hypogranular Neuts Not Reportable 03/25/16 05:56 Smudge Cells Not Reportable 03/25/16 05:56 Toxic Granulation Not Reportable 03/25/16 05:56 Toxic Vacuolation Not Reportable 03/25/16 05:56 Dohle Bodies Not Reportable 03/25/16 05:56 Pelger-Huet Anomaly Not Reportable 03/25/16 05:56 Corina Rods Not Reportable 03/25/16 05:56 Platelet Estimate Appears normal 03/25/16 05:56 Clumped Platelets Not Reportable 03/25/16 05:56 Plt Clumps, EDTA Not Reportable 03/25/16 05:56 Large Platelets Not Reportable 03/25/16 05:56 Giant Platelets Not Reportable 03/25/16 05:56 Platelet Satelliting Not Reportable 03/25/16 05:56 Plt Morphology Comment Not Reportable 03/25/16 05:56 RBC Morphology Normal 03/25/16 05:56 Dimorphic RBCs Not Reportable 03/25/16 05:56 Polychromasia Not Reportable 03/25/16 05:56 Hypochromasia Not Reportable 03/25/16 05:56 Poikilocytosis Not Reportable 03/25/16 05:56 Anisocytosis Not Reportable 03/25/16 05:56 Microcytosis Not Reportable 03/25/16 05:56 Macrocytosis Not Reportable 03/25/16 05:56 Spherocytes Not Reportable 03/25/16 05:56 Pappenheimer Bodies Not Reportable 03/25/16 05:56 Sickle Cells Not Reportable 03/25/16 05:56 Target Cells Not Reportable 03/25/16 05:56 Tear Drop Cells Not Reportable 03/25/16 05:56 Ovalocytes Not Reportable 03/25/16 05:56 Helmet Cells Not Reportable 03/25/16 05:56 [place] Bodies Not Reportable 03/25/16 05:56 [place] Rings Not Reportable 03/25/16 05:56 Bessie Cells Not Reportable 03/25/16 05:56 Bite Cells Not Reportable 03/25/16 05:56 Crenated Cell Not Reportable 03/25/16 05:56 Elliptocytes Not Reportable 03/25/16 05:56 Acanthocytes (Spur) Not Reportable 03/25/16 05:56 Rouleaux Not Reportable 03/25/16 05:56 Hemoglobin C Crystals Not Reportable 03/25/16 05:56 Schistocytes Not Reportable 03/25/16 05:56 Malaria parasites Not Reportable 03/25/16 05:56 Gideon Bodies Not Reportable 03/25/16 05:56 Hem Pathologist Commnt No 03/25/16 05:56 PT 14.6 Sec. (12.2-14.9) 03/24/16 14:00 INR 1.15 (0.87-1.13) H 03/24/16 14:00 POC ABG pH 7.519 (7.35-7.45) H 03/31/16 05:02 POC ABG pCO2 21.8 (35-45) L 03/31/16 05:02 POC ABG pO2 142 (80-105) H 03/31/16 05:02 POC ABG HCO3 17.8 03/31/16 05:02 POC ABG Total CO2 18 03/31/16 05:02 POC ABG O2 Sat 99 03/31/16 05:02 POC ABG Base Excess -5 03/31/16 05:02 VBG pH 7.418 (7.320-7.420) 03/24/16 14:00 FiO2 30 % 03/31/16 05:02 Sodium 145 mmol/L (137-145) 03/31/16 05:15 Potassium 4.0 mmol/L (3.6-5.0) 03/31/16 05:15 Chloride 108.5 mmol/L (98-107) H 03/31/16 05:15 Carbon Dioxide 19 mmol/L (22-30) L 03/31/16 05:15 Anion Gap 22 mmol/L 03/31/16 05:15 BUN 13 mg/dL (9-20) 03/31/16 05:15 Creatinine 1.1 mg/dL (0.8-1.5) 03/31/16 05:15 Estimated GFR > 60 ml/min 03/31/16 05:15 BUN/Creatinine Ratio 11.81 % 03/31/16 05:15 Glucose 188 mg/dL (75-100) H 03/31/16 05:15 POC Glucose 233 (70-105) H 03/31/16 07:23 Hemoglobin A1c 9.6 % (4-6) H 03/24/16 14:00 Lactic Acid 2.8 mmol/L (0.7-2.1) H 03/24/16 15:26 Calcium 8.5 mg/dL (8.4-10.2) 03/31/16 05:15 Phosphorus 2.3 mg/dL (2.5-4.5) L D 03/30/16 04:00 Magnesium 1.9 mg/dL (1.7-2.3) 03/30/16 04:00 Total Bilirubin 0.3 mg/dL (0.1-1.2) 03/24/16 14:00 AST 24 units/L (5-40) 03/24/16 14:00 ALT 38 units/L (7-56) 03/24/16 14:00 Alkaline Phosphatase 77 units/L (35-129) 03/24/16 14:00 Lactate Dehydrogenase 460 units/L (91-180) H 03/25/16 05:56 Total Creatine Kinase 356 units/L (55-170) H 03/28/16 13:29 Troponin T < 0.010 ng/mL (0.00-0.029) 03/28/16 13:29 NT-Pro-B Natriuret Pep 1089 pg/mL (0-900) H 03/31/16 05:15 Serum Total Protein 7.1 g/dL (6.1-8.1) 03/25/16 13:00 Total Protein 7.4 g/dL (6.3-8.2) 03/24/16 14:00 Albumin 3.4 g/dL (3.8-4.8) L 03/25/16 13:00 Albumin/Globulin Ratio 0.9 % 03/24/16 14:00 Uovyf-8-Tqvugoznu 0.4 g/dL (0.2-0.3) H 03/25/16 13:00 Zyvhm-6-Vnwrxrdsv 1.1 g/dL (0.5-0.9) H 03/25/16 13:00 Beta Globulins 0.6 g/dL (0.2-0.5) H 03/25/16 13:00 Hbwn-3-Ourpmlyplcbdb 2.46 mg/L (<=2.51) 03/25/16 13:00 Gamma Globulins 1.3 g/dL (0.8-1.7) 03/25/16 13:00 Abnorm Protein Band 1 see below (()) 03/25/16 13:00 PEP Interpretation see below (()) H 03/25/16 13:00 Triglycerides 88 mg/dL (2-149) 03/24/16 17:58 Cholesterol 221 mg/dL (50-199) H 03/24/16 17:58 LDL Cholesterol Direct 146 mg/dL (50-130) H 03/24/16 17:58 HDL Cholesterol 58 mg/dL (40-59) 03/24/16 17:58 Cholesterol/HDL Ratio 3.81 % 03/24/16 17:58 Urine Color Yellow (Yellow) 03/24/16 14:27 Urine Turbidity Clear (Clear) 03/24/16 14:27 Urine pH 5.0 (5.0-7.0) 03/24/16 14:27 Ur Specific [place] 1.017 (1.003-1.030) 03/24/16 14:27 Urine Protein <15 mg/dl mg/dL (Negative) 03/24/16 14:27 Urine Glucose (UA) >=500 mg/dL (Negative) 03/24/16 14:27 Urine Ketones Neg mg/dL (Negative) 03/24/16 14:27 Urine Blood Sm (Negative) 03/24/16 14:27 Urine Nitrite Neg (Negative) 03/24/16 14:27 Urine Bilirubin Neg (Negative) 03/24/16 14:27 Urine Urobilinogen < 2.0 mg/dL (<2.0) 03/24/16 14:27 Ur Leukocyte Esterase Neg (Negative) 03/24/16 14:27 Urine WBC (Auto) 2.0 /HPF (0.0-6.0) 03/24/16 14:27 Urine RBC (Auto) < 1.0 /HPF (0.0-6.0) 03/24/16 14:27 U Epithel Cells (Auto) 4.0 /HPF (0-13.0) 03/24/16 14:27 Hyaline Casts 1 /LPF 03/24/16 14:27 Urine Mucus Few /HPF 03/24/16 14:27 Ketones 1.0 mg/dL (0.2-2.8) 03/24/16 14:00
[2016-03-31] MEDS: ZESTRIL PO SCH ×3 (11:20→22:16)
[2016-03-31] MEDS: NORMODYNE PO SCH ×3 (11:20→22:16)
[2016-03-31] MEDS: MILK OF MAGNESIA PO PRN (20:01)
[2016-03-31] MEDS: REGLAN IV PRN (20:01)
[2016-04-01] MEDS: REGLAN IV PRN (05:36)
[2016-04-01] MEDS: HEPARIN SUB-Q SCH ×3 (05:36→23:04)
[2016-04-01] MEDS: TYLENOL PO PRN ×2 (05:36→23:32)
[2016-04-01 06:04] LABS: Basophils % (Auto) 0.5 % (0.0-1.8); Eosinophils % (Auto) 0.8 % (0.0-4.3); Hematocrit 38.2 % (35.5-45.6); Hemoglobin 12.3 gm/dl (11.8-15.2); Mean Corpuscular HGB Conc 32 % (32-34); Mean Corpuscular Hemoglobin 26 pg (28-32); Mean Corpuscular Volume 81 fl (84-94); Platelet Count 212 K/mm3 (140-440); Red Blood Count 4.73 M/mm3 (3.65-5.03); Red Cell Distribution Width 14.4 % (13.2-15.2); White Blood Count 12.1 K/mm3 (4.5-11.0)
[2016-04-01 06:13] LABS: ISTAT Base Excess -2; ISTAT HCO3 21.8; ISTAT PH 7.455 (7.35-7.45); ISTAT PO2 93 (80-105); ISTAT SO2 98; ISTAT TCO2 23
[2016-04-01 06:30] LABS: BUN/Creatinine Ratio 14.16; Blood Urea Nitrogen 17 mg/dL (9-20); Carbon Dioxide 22 mmol/L (22-30); Chloride 105.5 mmol/L (98-107); Glucose 256 mg/dL (75-100); Potassium 4.4 mmol/L (3.6-5.0); Sodium 142 mmol/L (137-145)
[2016-04-01 06:35] LABS: Anion Gap 19 mmol/L
[2016-04-01] MEDS: APRESOLINE IV PRN (06:51)
--- NOTE | 2016-04-01 07:27 | XRay Report ---
AP chest History: Followup respiratory failure. No change is demonstrated over multiple previous exams. Cardiomegaly is stable. The lungs are clear. Lines and tubes remain in good position. Impression: No change.
--- NOTE | 2016-04-01 08:18 | Progress Note ---
Assessment and Plan Acute respiratory failure. Stroke AMS. I still patient appears disoriented although responsive to calls Some chest congestion still noted. CXR unchanged,still high BNP HTN Hiccups. Slightly better Recommendations Lasix 20 mg BID Monitor electrolytes CC time 31 min Subjective Date of service: 04/01/16 Interval history: Intubated. Still with some hiccups. No seizures reported Objective Vital Signs - 12hr 03/31/16 03/31/16 03/31/16 20:30 20:31 21:00 Temperature Pulse Rate 80 79 79 Pulse Rate [ From Monitor] Respiratory 11 L 11 L Rate Blood Pressure 159/99 126/86 O2 Sat by Pulse 95 94 Oximetry 03/31/16 03/31/16 03/31/16 21:02 21:30 22:00 Temperature Pulse Rate 76 80 Pulse Rate [ From Monitor] Respiratory 14 15 9 L Rate Blood Pressure 120/76 138/94 O2 Sat by Pulse 96 94 Oximetry 03/31/16 03/31/16 03/31/16 22:16 22:30 22:41 Temperature Pulse Rate 75 71 71 Pulse Rate [ From Monitor] Respiratory 15 13 Rate Blood Pressure 138/94 149/92 149/92 O2 Sat by Pulse 96 99 Oximetry 03/31/16 03/31/16 04/01/16 23:00 23:30 00:00 Temperature 99.1 F Pulse Rate 71 74 76 Pulse Rate [ 76 From Monitor] Respiratory 14 12 17 Rate Blood Pressure 139/86 150/92 151/91 O2 Sat by Pulse 94 98 94 Oximetry 04/01/16 04/01/16 04/01/16 00:17 00:30 01:01 Temperature Pulse Rate 75 77 79 Pulse Rate [ From Monitor] Respiratory 19 11 L Rate Blood Pressure 151/91 134/78 155/92 O2 Sat by Pulse 97 88 92 Oximetry 04/01/16 04/01/16 04/01/16 01:31 02:01 02:30 Temperature Pulse Rate 78 77 80 Pulse Rate [ From Monitor] Respiratory 17 12 17 Rate Blood Pressure 155/92 174/104 151/96 O2 Sat by Pulse 98 97 97 Oximetry 04/01/16 04/01/16 04/01/16 03:00 03:02 03:30 Temperature Pulse Rate 81 80 83 Pulse Rate [ From Monitor] Respiratory 16 16 12 Rate Blood Pressure 142/95 151/96 136/100 O2 Sat by Pulse 96 97 98 Oximetry 04/01/16 04/01/16 04/01/16 04:00 04:28 04:30 Temperature 99.0 F Pulse Rate 83 85 85 Pulse Rate [ 83 From Monitor] Respiratory 12 12 Rate Blood Pressure 153/94 153/94 163/100 O2 Sat by Pulse 98 98 96 Oximetry 04/01/16 04/01/16 04/01/16 05:00 05:30 05:36 Temperature Pulse Rate 84 82 Pulse Rate [ From Monitor] Respiratory 18 12 16 Rate Blood Pressure 145/92 172/97 O2 Sat by Pulse 98 99 Oximetry 04/01/16 04/01/16 04/01/16 06:00 06:36 06:51 Temperature Pulse Rate 72 79 Pulse Rate [ From Monitor] Respiratory 14 13 Rate Blood Pressure 172/94 171/104 O2 Sat by Pulse 95 Oximetry Constitutional: no acute distress, alert, other (follow some commands) Eyes: non-icteric ENT: other (orally intubated and sedated) Neck: supple Effort: normal Ascultation: Bilateral: clear, rhonchi (occasional) Cardiovascular: regular rate and rhythm, irregular rhythm Gastrointestinal: normoactive bowel sounds, soft, non-tender Neurologic: other (R ASS of -1) CBC and BMP: 04/01/16 05:35 04/01/16 05:35 ABG, PT/INR, D-dimer: ABG POC ABG pH 7.455 (7.35-7.45) H 04/01/16 04:41 POC ABG pCO2 31.0 (35-45) L 04/01/16 04:41 POC ABG pO2 93 (80-105) 04/01/16 04:41 POC ABG HCO3 21.8 04/01/16 04:41 POC ABG Total CO2 23 04/01/16 04:41 POC ABG O2 Sat 98 04/01/16 04:41 PT/INR, D-dimer PT 14.6 Sec. (12.2-14.9) 03/24/16 14:00 INR 1.15 (0.87-1.13) H 03/24/16 14:00 Abnormal lab findings: Abnormal Labs 03/24/16 03/24/16 03/24/16 17:58 20:25 23:23 WBC RBC Hgb Hct MCV MCH MCHC Plt Count Lymph % (Auto) Cotton % (Auto) Lymph # Cotton # Seg Neutrophils % Seg Neuts % (Manual) Lymphocytes % (Manual) Seg Neutrophils # Seg Neutrophils # Man Lymphocytes # (Manual) Monocytes # (Manual) POC ABG pH POC ABG pCO2 POC ABG pO2 Sodium 169 H* Potassium 3.5 L Chloride 130.3 H Carbon Dioxide BUN 28 H Creatinine 1.8 H Glucose POC Glucose 112 H Calcium Phosphorus Lactate Dehydrogenase Total Creatine Kinase NT-Pro-B Natriuret Pep Albumin Lbine-3-Ksshvkqiz Wxgwz-5-Olqueytbb Beta Globulins PEP Interpretation Cholesterol 221 H LDL Cholesterol Direct 146 H 03/25/16 03/25/16 03/25/16 05:56 05:56 05:56 WBC 21.3 H RBC 6.32 H Hgb 16.7 H Hct 52.7 H MCV 83 L MCH 27 L MCHC Plt Count Lymph % (Auto) Cotton % (Auto) Lymph # Cotton # Seg Neutrophils % Seg Neuts % (Manual) 91.0 H Lymphocytes % (Manual) 4.0 L Seg Neutrophils # Seg Neutrophils # Man 19.4 H Lymphocytes # (Manual) 0.9 L Monocytes # (Manual) 0.9 H POC ABG pH POC ABG pCO2 POC ABG pO2 Sodium 172 H* Potassium 3.5 L Chloride 130.4 H Carbon Dioxide BUN 29 H Creatinine 1.8 H Glucose 187 H POC Glucose Calcium Phosphorus Lactate Dehydrogenase 460 H Total Creatine Kinase NT-Pro-B Natriuret Pep Albumin Tkfro-9-Mbyxvbhtk Wlbsw-2-Bdkttannj Beta Globulins PEP Interpretation Cholesterol LDL Cholesterol Direct 03/25/16 03/25/16 03/25/16 07:55 12:19 13:00 WBC RBC Hgb Hct MCV MCH MCHC Plt Count Lymph % (Auto) Cotton % (Auto) Lymph # Cotton # Seg Neutrophils % Seg Neuts % (Manual) Lymphocytes % (Manual) Seg Neutrophils # Seg Neutrophils # Man Lymphocytes # (Manual) Monocytes # (Manual) POC ABG pH POC ABG pCO2 POC ABG pO2 Sodium Potassium Chloride Carbon Dioxide BUN Creatinine Glucose POC Glucose 231 H 314 H Calcium Phosphorus Lactate Dehydrogenase Total Creatine Kinase NT-Pro-B Natriuret Pep Albumin 3.4 L Osoxv-4-Idnsdbjgk 0.4 H Ywgrb-4-Xgnbsbjbo 1.1 H Beta Globulins 0.6 H PEP Interpretation see below H Cholesterol LDL Cholesterol Direct 03/25/16 03/25/1603/26/16 16:41 22:45 08:32 WBC RBC Hgb Hct MCV MCH MCHC Plt Count Lymph % (Auto) Cotton % (Auto) Lymph # Cotton # Seg Neutrophils % Seg Neuts % (Manual) Lymphocytes % (Manual) Seg Neutrophils # Seg Neutrophils # Man Lymphocytes # (Manual) Monocytes # (Manual) POC ABG pH POC ABG pCO2 POC ABG pO2 Sodium Potassium Chloride Carbon Dioxide BUN Creatinine Glucose POC Glucose 444 H 326 H 360 H Calcium Phosphorus Lactate Dehydrogenase Total Creatine Kinase NT-Pro-B Natriuret Pep Albumin Gppms-7-Vnlbofycr Hvuoy-3-Frpzhqetu Beta Globulins PEP Interpretation Cholesterol LDL Cholesterol Direct 03/26/16 03/26/16 03/26/16 12:38 15:33 15:47 WBC RBC Hgb Hct MCV MCH MCHC Plt Count Lymph % (Auto) Cotton % (Auto) Lymph # Cotton # Seg Neutrophils % Seg Neuts % (Manual) Lymphocytes % (Manual) Seg Neutrophils # Seg Neutrophils # Man Lymphocytes # (Manual) Monocytes # (Manual) POC ABG pH 7.511 H POC ABG pCO2 26.5 L POC ABG pO2 70 L Sodium Potassium Chloride Carbon Dioxide BUN Creatinine Glucose POC Glucose 280 H 174 H Calcium Phosphorus Lactate Dehydrogenase Total Creatine Kinase NT-Pro-B Natriuret Pep Albumin Ygksm-7-Mzkfvbrvg Vwzbc-3-Cxzfyiayq Beta Globulins PEP Interpretation Cholesterol LDL Cholesterol Direct 03/26/16 03/26/16 03/26/16 16:47 16:47 18:51 WBC 14.0 H RBC 5.17 H Hgb Hct MCV MCH 26 L MCHC 31 L Plt Count 139 L Lymph % (Auto) Cotton % (Auto) Lymph # Cotton # Seg Neutrophils % Seg Neuts % (Manual) Lymphocytes % (Manual) Seg Neutrophils # Seg Neutrophils # Man Lymphocytes # (Manual) Monocytes # (Manual) POC ABG pH POC ABG pCO2 33.9 L POC ABG pO2 150 H Sodium 164 H* Potassium 3.4 L Chloride 128.5 H Carbon Dioxide BUN 30 H Creatinine 2.2 H Glucose 121 H POC Glucose Calcium 8.1 L Phosphorus Lactate Dehydrogenase Total Creatine Kinase NT-Pro-B Natriuret Pep Albumin Xggnq-7-Yixcizbnc Fracd-5-Bayphmhnr Beta Globulins PEP Interpretation Cholesterol LDL Cholesterol Direct 03/27/16 03/27/16 03/27/16 02:19 05:47 06:02 WBC RBC Hgb Hct MCV MCH MCHC Plt Count Lymph % (Auto) Cotton % (Auto) Lymph # Cotton # Seg Neutrophils % Seg Neuts % (Manual) Lymphocytes % (Manual) Seg Neutrophils # Seg Neutrophils # Man Lymphocytes # (Manual) Monocytes # (Manual) POC ABG pH POC ABG pCO2 27.3 L 30.3 L POC ABG pO2 50 L 112 H Sodium 158 H Potassium Chloride 126.7 H Carbon Dioxide 20 L BUN 25 H Creatinine 1.7 H Glucose POC Glucose Calcium 7.0 L Phosphorus Lactate Dehydrogenase Total Creatine Kinase NT-Pro-B Natriuret Pep Albumin Fvxlr-5-Pimdhueka Pppji-9-Ixqjupfew Beta Globulins PEP Interpretation Cholesterol LDL Cholesterol Direct 03/27/16 03/27/16 03/27/16 07:51 09:20 11:45 WBC 14.2 H RBC Hgb Hct MCV 83 L MCH 27 L MCHC Plt Count 113 L Lymph % (Auto) Cotton % (Auto) Lymph # Cotton # Seg Neutrophils % Seg Neuts % (Manual) Lymphocytes % (Manual) Seg Neutrophils # Seg Neutrophils # Man Lymphocytes # (Manual) Monocytes # (Manual) POC ABG pH POC ABG pCO2 POC ABG pO2 Sodium Potassium Chloride Carbon Dioxide BUN Creatinine Glucose POC Glucose 124 H 241 H Calcium Phosphorus Lactate Dehydrogenase Total Creatine Kinase NT-Pro-B Natriuret Pep Albumin Psidn-4-Spynbfmnu Qbgvd-0-Rlplszcdn Beta Globulins PEP Interpretation Cholesterol LDL Cholesterol Direct 03/27/16 03/27/16 03/28/16 16:39 22:03 03:29 WBC RBC Hgb Hct MCV MCH MCHC Plt Count Lymph % (Auto) Cotton % (Auto) Lymph # Cotton # Seg Neutrophils % Seg Neuts % (Manual) Lymphocytes % (Manual) Seg Neutrophils # Seg Neutrophils # Man Lymphocytes # (Manual) Monocytes # (Manual) POC ABG pH POC ABG pCO2 POC ABG pO2 Sodium Potassium Chloride Carbon Dioxide BUN Creatinine Glucose POC Glucose 266 H 167 H 241 H Calcium Phosphorus Lactate Dehydrogenase Total Creatine Kinase NT-Pro-B Natriuret Pep Albumin Wifqx-0-Avgizdggr Qetwy-8-Xpulihcam Beta Globulins PEP Interpretation Cholesterol LDL Cholesterol Direct 03/28/16 03/28/16 03/28/16 05:00 05:00 05:00 WBC RBC Hgb Hct MCV 83 L MCH 27 L MCHC Plt Count 106 L Lymph % (Auto) Cotton % (Auto) 10.1 H Lymph # Cotton # 1.0 H Seg Neutrophils % 75.1 H Seg Neuts % (Manual) Lymphocytes % (Manual) Seg Neutrophils # Seg Neutrophils # Man Lymphocytes # (Manual) Monocytes # (Manual) POC ABG pH POC ABG pCO2 POC ABG pO2 Sodium 147 H D Potassium 3.1 L D Chloride 112.3 H Carbon Dioxide 21 L BUN Creatinine Glucose 208 H POC Glucose Calcium 7.0 L Phosphorus 2.2 L Lactate Dehydrogenase Total Creatine Kinase NT-Pro-B Natriuret Pep Albumin Yxiff-7-Dfaajeqgz Bvhdp-2-Dmolawinu Beta Globulins PEP Interpretation Cholesterol LDL Cholesterol Direct 03/28/16 03/28/16 03/28/16 05:14 08:41 10:56 WBC RBC Hgb Hct MCV MCH MCHC Plt Count Lymph % (Auto) Cotton % (Auto) Lymph # Cotton # Seg Neutrophils % Seg Neuts % (Manual) Lymphocytes % (Manual) Seg Neutrophils # Seg Neutrophils # Man Lymphocytes # (Manual) Monocytes # (Manual) POC ABG pH 7.457 H POC ABG pCO2 29.7 L 27.7 L POC ABG pO2 Sodium Potassium Chloride Carbon Dioxide BUN Creatinine Glucose POC Glucose 228 H Calcium Phosphorus Lactate Dehydrogenase Total Creatine Kinase NT-Pro-B Natriuret Pep Albumin Coluy-0-Pbpwkwxlg Xriuj-5-Fgbonwjme Beta Globulins PEP Interpretation Cholesterol LDL Cholesterol Direct 03/28/16 03/28/16 03/28/16 11:37 13:29 16:22 WBC RBC Hgb Hct MCV MCH MCHC Plt Count Lymph % (Auto) Cotton % (Auto) Lymph # Cotton # Seg Neutrophils % Seg Neuts % (Manual) Lymphocytes % (Manual) Seg Neutrophils # Seg Neutrophils # Man Lymphocytes # (Manual) Monocytes # (Manual) POC ABG pH POC ABG pCO2 POC ABG pO2 Sodium Potassium Chloride Carbon Dioxide BUN Creatinine Glucose POC Glucose 226 H 200 H Calcium Phosphorus Lactate Dehydrogenase Total Creatine Kinase 356 H NT-Pro-B Natriuret Pep Albumin Bvurf-7-Kdlfuswjd Sejvf-4-Spvwirwmo Beta Globulins PEP Interpretation Cholesterol LDL Cholesterol Direct 03/28/16 03/29/16 03/29/16 21:48 04:50 04:50 WBC RBC Hgb 11.5 L Hct 35.3 L MCV 81 L MCH 26 L MCHC Plt Count 97 L Lymph % (Auto) Cotton % (Auto) 11.7 H Lymph # Cotton # 1.1 H Seg Neutrophils % Seg Neuts % (Manual) Lymphocytes % (Manual) Seg Neutrophils # Seg Neutrophils # Man Lymphocytes # (Manual) Monocytes # (Manual) POC ABG pH POC ABG pCO2 POC ABG pO2 Sodium 136 L D Potassium 3.3 L Chloride Carbon Dioxide 20 L BUN Creatinine Glucose 386 H POC Glucose 188 H Calcium 6.8 L Phosphorus 1.6 L D Lactate Dehydrogenase Total Creatine Kinase NT-Pro-B Natriuret Pep Albumin Ymrdc-2-Glijtddmv Mynsr-3-Tcukzpjcm Beta Globulins PEP Interpretation Cholesterol LDL Cholesterol Direct 03/29/16 03/29/16 03/29/16 08:10 11:12 16:09 WBC RBC Hgb Hct MCV MCH MCHC Plt Count Lymph % (Auto) Cotton % (Auto) Lymph # Cotton # Seg Neutrophils % Seg Neuts % (Manual) Lymphocytes % (Manual) Seg Neutrophils # Seg Neutrophils # Man Lymphocytes # (Manual) Monocytes # (Manual) POC ABG pH POC ABG pCO2 POC ABG pO2 Sodium Potassium Chloride Carbon Dioxide BUN Creatinine Glucose POC Glucose 230 H 180 H 46 L Calcium Phosphorus Lactate Dehydrogenase Total Creatine Kinase NT-Pro-B Natriuret Pep Albumin Sllmt-4-Zbquicxjf Xtlwf-4-Iifiqqstw Beta Globulins PEP Interpretation Cholesterol LDL Cholesterol Direct 03/29/16 03/29/16 03/30/16 16:12 18:15 02:53 WBC RBC Hgb Hct MCV MCH MCHC Plt Count Lymph % (Auto) Cotton % (Auto) Lymph # Cotton # Seg Neutrophils % Seg Neuts % (Manual) Lymphocytes % (Manual) Seg Neutrophils # Seg Neutrophils # Man Lymphocytes # (Manual) Monocytes # (Manual) POC ABG pH POC ABG pCO2 POC ABG pO2 Sodium Potassium Chloride Carbon Dioxide BUN Creatinine Glucose POC Glucose 52 L 118 H 130 H Calcium Phosphorus Lactate Dehydrogenase Total Creatine Kinase NT-Pro-B Natriuret Pep Albumin Dvijz-3-Ivxhpppxv Fssup-8-Mzundtcdz Beta Globulins PEP Interpretation Cholesterol LDL Cholesterol Direct 03/30/16 03/30/16 03/30/16 04:00 04:00 05:29 WBC RBC Hgb Hct MCV 81 L MCH 26 L MCHC Plt Count 116 L Lymph % (Auto) 10.8 L Cotton % (Auto) 13.1 H Lymph # 1.0 L Cotton # 1.3 H Seg Neutrophils % 74.2 H Seg Neuts % (Manual) Lymphocytes % (Manual) Seg Neutrophils # Seg Neutrophils # Man Lymphocytes # (Manual) Monocytes # (Manual) POC ABG pH 7.522 H POC ABG pCO2 22.7 L POC ABG pO2 137 H Sodium 147 H D Potassium Chloride 115.5 H Carbon Dioxide 20 L BUN Creatinine Glucose 116 H POC Glucose Calcium 7.6 L Phosphorus 2.3 L D Lactate Dehydrogenase Total Creatine Kinase NT-Pro-B Natriuret Pep Albumin Gubcv-1-Xptqgntlf Wkedj-3-Mxxngygqh Beta Globulins PEP Interpretation Cholesterol LDL Cholesterol Direct 03/30/16 03/30/16 03/30/16 05:47 08:05 08:59 WBC RBC Hgb Hct MCV MCH MCHC Plt Count Lymph % (Auto) Cotton % (Auto) Lymph # Cotton # Seg Neutrophils % Seg Neuts % (Manual) Lymphocytes % (Manual) Seg Neutrophils # Seg Neutrophils # Man Lymphocytes # (Manual) Monocytes # (Manual) POC ABG pH POC ABG pCO2 26.2 L POC ABG pO2 115 H Sodium Potassium Chloride Carbon Dioxide BUN Creatinine Glucose POC Glucose 138 H 171 H Calcium Phosphorus Lactate Dehydrogenase Total Creatine Kinase NT-Pro-B Natriuret Pep Albumin Zooxq-7-Zmtnpykjj Nyrep-8-Tgrhoqakt Beta Globulins PEP Interpretation Cholesterol LDL Cholesterol Direct 03/30/16 03/30/16 03/30/16 12:11 12:11 16:39 WBC RBC Hgb Hct MCV MCH MCHC Plt Count Lymph % (Auto) Cotton % (Auto) Lymph # Cotton # Seg Neutrophils % Seg Neuts % (Manual) Lymphocytes % (Manual) Seg Neutrophils # Seg Neutrophils # Man Lymphocytes # (Manual) Monocytes # (Manual) POC ABG pH 7.476 H POC ABG pCO2 29.0 L POC ABG pO2 Sodium Potassium Chloride Carbon Dioxide BUN Creatinine Glucose POC Glucose 142 H 59 L Calcium Phosphorus Lactate Dehydrogenase Total Creatine Kinase NT-Pro-B Natriuret Pep Albumin Wqgvv-6-Vmmtldych Xgnpy-7-Ixbkfzfli Beta Globulins PEP Interpretation Cholesterol LDL Cholesterol Direct 03/30/16 03/30/16 03/31/16 18:41 21:59 05:02 WBC RBC Hgb Hct MCV MCH MCHC Plt Count Lymph % (Auto) Cotton % (Auto) Lymph # Cotton # Seg Neutrophils % Seg Neuts % (Manual) Lymphocytes % (Manual) Seg Neutrophils # Seg Neutrophils # Man Lymphocytes # (Manual) Monocytes # (Manual) POC ABG pH 7.519 H POC ABG pCO2 21.8 L POC ABG pO2 142 H Sodium Potassium Chloride Carbon Dioxide BUN Creatinine Glucose POC Glucose 145 H 154 H Calcium Phosphorus Lactate Dehydrogenase Total Creatine Kinase NT-Pro-B Natriuret Pep Albumin Fpven-3-Ycokoscgi Mhbyn-5-Utehsalhl Beta Globulins PEP Interpretation Cholesterol LDL Cholesterol Direct 03/31/16 03/31/16 03/31/16 05:15 05:15 05:15 WBC 13.4 H RBC 5.21 H Hgb Hct MCV 81 L MCH 26 L MCHC Plt Count Lymph % (Auto) 9.5 L Cotton % (Auto) 14.0 H Lymph # Cotton # 1.9 H Seg Neutrophils % 75.0 H Seg Neuts % (Manual) Lymphocytes % (Manual) Seg Neutrophils # 10.1 H Seg Neutrophils # Man Lymphocytes # (Manual) Monocytes # (Manual) POC ABG pH POC ABG pCO2 POC ABG pO2 Sodium Potassium Chloride 108.5 H Carbon Dioxide 19 L BUN Creatinine Glucose 188 H POC Glucose Calcium Phosphorus Lactate Dehydrogenase Total Creatine Kinase NT-Pro-B Natriuret Pep 1089 H Albumin Kbtdf-4-Qlsfazkyw Mgtbc-0-Bwjyandbp Beta Globulins PEP Interpretation Cholesterol LDL Cholesterol Direct 03/31/16 03/31/16 03/31/16 07:23 11:12 15:20 WBC RBC Hgb Hct MCV MCH MCHC Plt Count Lymph % (Auto) Cotton % (Auto) Lymph # Cotton # Seg Neutrophils % Seg Neuts % (Manual) Lymphocytes % (Manual) Seg Neutrophils # Seg Neutrophils # Man Lymphocytes # (Manual) Monocytes # (Manual) POC ABG pH POC ABG pCO2 POC ABG pO2 Sodium Potassium Chloride Carbon Dioxide BUN Creatinine Glucose POC Glucose 233 H 228 H 208 H Calcium Phosphorus Lactate Dehydrogenase Total Creatine Kinase NT-Pro-B Natriuret Pep Albumin Glrve-2-Rztfgnwaq Ktzkv-8-Tkuxukbfw Beta Globulins PEP Interpretation Cholesterol LDL Cholesterol Direct 03/31/16 04/01/16 04/01/16 21:27 04:41 05:35 WBC 12.1 H RBC Hgb Hct MCV 81 L MCH 26 L MCHC Plt Count Lymph % (Auto) 8.5 L Cotton % (Auto) 14.0 H Lymph # 1.0 L Cotton # 1.7 H Seg Neutrophils % 76.2 H Seg Neuts % (Manual) Lymphocytes % (Manual) Seg Neutrophils # 9.2 H Seg Neutrophils # Man Lymphocytes # (Manual) Monocytes # (Manual) POC ABG pH 7.455 H POC ABG pCO2 31.0 L POC ABG pO2 Sodium Potassium Chloride Carbon Dioxide BUN Creatinine Glucose POC Glucose 162 H Calcium Phosphorus Lactate Dehydrogenase Total Creatine Kinase NT-Pro-B Natriuret Pep Albumin Hdkrc-5-Uctslnavc Qqnkd-0-Ogchlczbu Beta Globulins PEP Interpretation Cholesterol LDL Cholesterol Direct 04/01/16 05:35 WBC RBC Hgb Hct MCV MCH MCHC Plt Count Lymph % (Auto) Cotton % (Auto) Lymph # Cotton # Seg Neutrophils % Seg Neuts % (Manual) Lymphocytes % (Manual) Seg Neutrophils # Seg Neutrophils # Man Lymphocytes # (Manual) Monocytes # (Manual) POC ABG pH POC ABG pCO2 POC ABG pO2 Sodium Potassium Chloride Carbon Dioxide BUN Creatinine Glucose 256 H POC Glucose Calcium 8.0 L Phosphorus Lactate Dehydrogenase Total Creatine Kinase NT-Pro-B Natriuret Pep 1205 H Albumin Bajgz-3-Pfedrkvql Ttvsz-8-Ofjegrzjm Beta Globulins PEP Interpretation Cholesterol LDL Cholesterol Direct
--- NOTE | 2016-04-01 08:34 | Progress Note ---
Assessment and Plan Assessment and plan: 1. Acute respiratory failure-continue vent management as per critical care. Patient to have spontaneous breathing trials today. ? Acute diastolic heart failure. We will discuss with cardiology. Patient with elevated BNP. Lasix 20 mg twice a day. Echocardiogram revealed concentric LVH with an EF of 65-70%. 2. Acute CVA. CT scan revealed acute ischemic infarct in the right cerebellum. Repeat CT scan in the next 24-48 hours. Consider neurosurgical consultation. MRA to look at posterior circulation. Continue aspirin and statin. 3. Hypernatremia -resolved. Continue to monitor BMP. 4. Metabolic encephalopathy-f/u MRI/MRA head/neck. Continue management as discussed above. EEG normal. 5. Group B strep UTI-continue IV ceftriaxone; wbc normal and afebrile 6. Accelerated hypertension. Continue medications of lisinopril and labetalol 7. CAD-stable, continue current beta em, statin 8. Seizures-continue Keppra. EEG normal. 9. Diabetes type 2 with insulin dependence-continue insulin regime, continue to monitor Accu-Cheks 10. Mild hypokelemia- improving; will replace with po supplementation; hypophosphatemia- will replace and monitor 11. DVT prophylaxis-Lovenox 12. GI prophylaxis-Pepcid The high probability of a clinically significant, sudden or life threatening deterioration of the [respiratory and neurological] system(s) required my full and direct attention, intervention and personal management. The aggregate critical care time was [32] minutes. This time is in addition to time spent performing reported procedures but includes the following: [x] Data Review and interpretation [x] Patient assessment and monitoring of vital signs [x] Documentation [x] Medication orders and management History Interval history: Patient is currently intubated with no new issues overnight. Hospitalist Physical - Constitutional Vitals: Temp Pulse Resp BP Pulse Ox 99.0 F 79 13 171/104 95 04/01/16 04:00 04/01/16 06:51 04/01/16 06:36 04/01/16 06:51 04/01/16 06:00 General appearance: Present: other (vented) - EENT Eyes: Present: PERRL, EOM intact ENT: hearing intact, clear oral mucosa, dentition normal - Neck Neck: Present: supple, normal ROM - Respiratory Respiratory effort: normal Respiratory: bilateral: diminished - Cardiovascular Rhythm: regular Heart Sounds: Present: S1 & S2. Absent: gallop, rub - Extremities Extremities: no ischemia, No edema, Full ROM - Abdominal General gastrointestinal: soft, non-tender, non-distended, normal bowel sounds - Integumentary Integumentary: Present: clear, warm, dry - Neurologic Neurologic: CNII-XII intact, moves all extremities Results - Labs CBC & Chem 7: 04/01/16 05:35 04/01/16 05:35 Labs: Laboratory Last Values WBC 12.1 K/mm3 (4.5-11.0) H 04/01/16 05:35 RBC 4.73 M/mm3 (3.65-5.03) 04/01/16 05:35 Hgb 12.3 gm/dl (11.8-15.2) 04/01/16 05:35 Hct 38.2 % (35.5-45.6) 04/01/16 05:35 MCV 81 fl (84-94) L 04/01/16 05:35 MCH 26 pg (28-32) L 04/01/16 05:35 MCHC 32 % (32-34) 04/01/16 05:35 RDW 14.4 % (13.2-15.2) 04/01/16 05:35 Plt Count 212 K/mm3 (140-440) 04/01/16 05:35 Lymph % (Auto) 8.5 % (13.4-35.0) L 04/01/16 05:35 [place] % (Auto) 14.0 % (0.0-7.3) H 04/01/16 05:35 Eos % (Auto) 0.8 % (0.0-4.3) 04/01/16 05:35 Baso % (Auto) 0.5 % (0.0-1.8) 04/01/16 05:35 Lymph # 1.0 K/mm3 (1.2-5.4) L 04/01/16 05:35 [place] # 1.7 K/mm3 (0.0-0.8) H 04/01/16 05:35 Eos # 0.1 K/mm3 (0.0-0.4) 04/01/16 05:35 Baso # 0.1 K/mm3 (0.0-0.1) 04/01/16 05:35 Add Manual Diff Complete 03/25/16 05:56 Total Counted 100 03/25/16 05:56 Seg Neutrophils % 76.2 % (40.0-70.0) H 04/01/16 05:35 Seg Neuts % (Manual) 91.0 % (40.0-70.0) H 03/25/16 05:56 Band Neutrophils % 1.0 % 03/25/16 05:56 Lymphocytes % (Manual) 4.0 % (13.4-35.0) L 03/25/16 05:56 Reactive Lymphs % (Man) 0 % 03/25/16 05:56 Monocytes % (Manual) 4.0 % (0.0-7.3) 03/25/16 05:56 Eosinophils % (Manual) 0 % (0.0-4.3) 03/25/16 05:56 Basophils % (Manual) 0 % (0.0-1.8) 03/25/16 05:56 Metamyelocytes % 0 % 03/25/16 05:56 Myelocytes % 0 % 03/25/16 05:56 Promyelocytes % 0 % 03/25/16 05:56 Blast Cells % 0 % 03/25/16 05:56 Nucleated RBC % Not Reportable 03/25/16 05:56 Seg Neutrophils # 9.2 K/mm3 (1.8-7.7) H 04/01/16 05:35 Seg Neutrophils # Man 19.4 K/mm3 (1.8-7.7) H 03/25/16 05:56 Band Neutrophils # 0.2 K/mm3 03/25/16 05:56 Lymphocytes # (Manual) 0.9 K/mm3 (1.2-5.4) L 03/25/16 05:56 Abs React Lymphs (Man) 0.0 K/mm3 03/25/16 05:56 Monocytes # (Manual) 0.9 K/mm3 (0.0-0.8) H 03/25/16 05:56 Eosinophils # (Manual) 0.0 K/mm3 (0.0-0.4) 03/25/16 05:56 Basophils # (Manual) 0.0 K/mm3 (0.0-0.1) 03/25/16 05:56 Metamyelocytes # 0.0 K/mm3 03/25/16 05:56 Myelocytes # 0.0 K/mm3 03/25/16 05:56 Promyelocytes # 0.0 K/mm3 03/25/16 05:56 Blast Cells # 0.0 K/mm3 03/25/16 05:56 WBC Morphology Not Reportable 03/25/16 05:56 Hypersegmented Neuts Not Reportable 03/25/16 05:56 Hyposegmented Neuts Not Reportable 03/25/16 05:56 Hypogranular Neuts Not Reportable 03/25/16 05:56 Smudge Cells Not Reportable 03/25/16 05:56 Toxic Granulation Not Reportable 03/25/16 05:56 Toxic Vacuolation Not Reportable 03/25/16 05:56 Dohle Bodies Not Reportable 03/25/16 05:56 Pelger-Huet Anomaly Not Reportable 03/25/16 05:56 Corina Rods Not Reportable 03/25/16 05:56 Platelet Estimate Appears normal 03/25/16 05:56 Clumped Platelets Not Reportable 03/25/16 05:56 Plt Clumps, EDTA Not Reportable 03/25/16 05:56 Large Platelets Not Reportable 03/25/16 05:56 Giant Platelets Not Reportable 03/25/16 05:56 Platelet Satelliting Not Reportable 03/25/16 05:56 Plt Morphology Comment Not Reportable 03/25/16 05:56 RBC Morphology Normal 03/25/16 05:56 Dimorphic RBCs Not Reportable 03/25/16 05:56 Polychromasia Not Reportable 03/25/16 05:56 Hypochromasia Not Reportable 03/25/16 05:56 Poikilocytosis Not Reportable 03/25/16 05:56 Anisocytosis Not Reportable 03/25/16 05:56 Microcytosis Not Reportable 03/25/16 05:56 Macrocytosis Not Reportable 03/25/16 05:56 Spherocytes Not Reportable 03/25/16 05:56 Pappenheimer Bodies Not Reportable 03/25/16 05:56 Sickle Cells Not Reportable 03/25/16 05:56 Target Cells Not Reportable 03/25/16 05:56 Tear Drop Cells Not Reportable 03/25/16 05:56 Ovalocytes Not Reportable 03/25/16 05:56 Helmet Cells Not Reportable 03/25/16 05:56 [place] Bodies Not Reportable 03/25/16 05:56 [place] Rings Not Reportable 03/25/16 05:56 Tuan Cells Not Reportable 03/25/16 05:56 Bite Cells Not Reportable 03/25/16 05:56 Crenated Cell Not Reportable 03/25/16 05:56 Elliptocytes Not Reportable 03/25/16 05:56 Acanthocytes (Spur) Not Reportable 03/25/16 05:56 Rouleaux Not Reportable 03/25/16 05:56 Hemoglobin C Crystals Not Reportable 03/25/16 05:56 Schistocytes Not Reportable 03/25/16 05:56 Malaria parasites Not Reportable 03/25/16 05:56 Gideon Bodies Not Reportable 03/25/16 05:56 Hem Pathologist Commnt No 03/25/16 05:56 PT 14.6 Sec. (12.2-14.9) 03/24/16 14:00 INR 1.15 (0.87-1.13) H 03/24/16 14:00 POC ABG pH 7.455 (7.35-7.45) H 04/01/16 04:41 POC ABG pCO2 31.0 (35-45) L 04/01/16 04:41 POC ABG pO2 93 (80-105) 04/01/16 04:41 POC ABG HCO3 21.8 04/01/16 04:41 POC ABG Total CO2 23 04/01/16 04:41 POC ABG O2 Sat 98 04/01/16 04:41 POC ABG Base Excess -2 04/01/16 04:41 VBG pH 7.418 (7.320-7.420) 03/24/16 14:00 FiO2 25 % 04/01/16 04:41 Sodium 142 mmol/L (137-145) 04/01/16 05:35 Potassium 4.4 mmol/L (3.6-5.0) 04/01/16 05:35 Chloride 105.5 mmol/L (98-107) 04/01/16 05:35 Carbon Dioxide 22 mmol/L (22-30) 04/01/16 05:35 Anion Gap 19 mmol/L 04/01/16 05:35 BUN 17 mg/dL (9-20) 04/01/16 05:35 Creatinine 1.2 mg/dL (0.8-1.5) 04/01/16 05:35 Estimated GFR > 60 ml/min 04/01/16 05:35 BUN/Creatinine Ratio 14.16 % 04/01/16 05:35 Glucose 256 mg/dL (75-100) H 04/01/16 05:35 POC Glucose 162 (70-105) H 03/31/16 21:27 Hemoglobin A1c 9.6 % (4-6) H 03/24/16 14:00 Lactic Acid 2.8 mmol/L (0.7-2.1) H 03/24/16 15:26 Calcium 8.0 mg/dL (8.4-10.2) L 04/01/16 05:35 Phosphorus 2.3 mg/dL (2.5-4.5) L D 03/30/16 04:00 Magnesium 1.9 mg/dL (1.7-2.3) 03/30/16 04:00 Total Bilirubin 0.3 mg/dL (0.1-1.2) 03/24/16 14:00 AST 24 units/L (5-40) 03/24/16 14:00 ALT 38 units/L (7-56) 03/24/16 14:00 Alkaline Phosphatase 77 units/L (35-129) 03/24/16 14:00 Lactate Dehydrogenase 460 units/L (91-180) H 03/25/16 05:56 Total Creatine Kinase 356 units/L (55-170) H 03/28/16 13:29 Troponin T < 0.010 ng/mL (0.00-0.029) 03/28/16 13:29 NT-Pro-B Natriuret Pep 1205 pg/mL (0-900) H 04/01/16 05:35 Serum Total Protein 7.1 g/dL (6.1-8.1) 03/25/16 13:00 Total Protein 7.4 g/dL (6.3-8.2) 03/24/16 14:00 Albumin 3.4 g/dL (3.8-4.8) L 03/25/16 13:00 Albumin/Globulin Ratio 0.9 % 03/24/16 14:00 Puxjj-8-Grbyccuxm 0.4 g/dL (0.2-0.3) H 03/25/16 13:00 Zaerj-1-Fttxzccwk 1.1 g/dL (0.5-0.9) H 03/25/16 13:00 Beta Globulins 0.6 g/dL (0.2-0.5) H 03/25/16 13:00 Aikh-8-Pgjjpffvkhuwm 2.46 mg/L (<=2.51) 03/25/16 13:00 Gamma Globulins 1.3 g/dL (0.8-1.7) 03/25/16 13:00 Abnorm Protein Band 1 see below (()) 03/25/16 13:00 PEP Interpretation see below (()) H 03/25/16 13:00 Triglycerides 88 mg/dL (2-149) 03/24/16 17:58 Cholesterol 221 mg/dL (50-199) H 03/24/16 17:58 LDL Cholesterol Direct 146 mg/dL (50-130) H 03/24/16 17:58 HDL Cholesterol 58 mg/dL (40-59) 03/24/16 17:58 Cholesterol/HDL Ratio 3.81 % 03/24/16 17:58 Urine Color Yellow (Yellow) 03/24/16 14:27 Urine Turbidity Clear (Clear) 03/24/16 14:27 Urine pH 5.0 (5.0-7.0) 03/24/16 14:27 Ur Specific [place] 1.017 (1.003-1.030) 03/24/16 14:27 Urine Protein <15 mg/dl mg/dL (Negative) 03/24/16 14:27 Urine Glucose (UA) >=500 mg/dL (Negative) 03/24/16 14:27 Urine Ketones Neg mg/dL (Negative) 03/24/16 14:27 Urine Blood Sm (Negative) 03/24/16 14:27 Urine Nitrite Neg (Negative) 03/24/16 14:27 Urine Bilirubin Neg (Negative) 03/24/16 14:27 Urine Urobilinogen < 2.0 mg/dL (<2.0) 03/24/16 14:27 Ur Leukocyte Esterase Neg (Negative) 03/24/16 14:27 Urine WBC (Auto) 2.0 /HPF (0.0-6.0) 03/24/16 14:27 Urine RBC (Auto) < 1.0 /HPF (0.0-6.0) 03/24/16 14:27 U Epithel Cells (Auto) 4.0 /HPF (0-13.0) 03/24/16 14:27 Hyaline Casts 1 /LPF 03/24/16 14:27 Urine Mucus Few /HPF 03/24/16 14:27 Ketones 1.0 mg/dL (0.2-2.8) 03/24/16 14:00
[2016-04-01] MEDS: NORMODYNE PO SCH ×2 (09:10→23:05)
[2016-04-01] MEDS: ASPIRIN PO SCH (09:10)
[2016-04-01] MEDS: ZESTRIL PO SCH ×2 (09:11→23:07)
[2016-04-01] MEDS: PEPCID PO SCH ×2 (09:12→23:06)
[2016-04-01] MEDS: ROCEPHIN/NS 1 GM/50 ML 50 ML IV SCH (09:13)
[2016-04-01] MEDS: CORDARONE PO SCH (09:14)
[2016-04-01] MEDS: KEPPRA PO SCH ×2 (09:14→23:05)
[2016-04-01] MEDS: NOVOLOG SUB-Q SCH ×4 (09:16→18:42)
--- NOTE | 2016-04-01 12:10 | Magnetic Resonance Report ---
MRI of the brain without contrast. Findings: On diffusion weighted image, there is a prominent area of restricted diffusion with mixed signal in the inferior right cerebellar hemisphere, similar to the area of hypodensity on the most recent cranial CT. This correlates with a subacute nonhemorrhagic infarct. There is associated mass effect with extrinsic compression of the fourth ventricle. There are multiple additional areas of restricted diffusion including the left posterior occipital lobe measuring 1.4 cm in diameter. There are 3 subcentimeter areas of restricted diffusion in the left frontal lobe. Areas of chronic infarct are seen in the basal ganglia and in the left cerebellar hemisphere. There are areas of extensive hyperintense T2 and flair signal in the periventricular white matter bilaterally. No masses or extra axial collection. The third and lateral ventricles are normal. There is evidence of chronic left maxillary and mild ethmoid sinus disease. Impression: 1. Subacute infarct in the right cerebellar hemisphere with associated edema and mass effect as described. 2. Multiple areas of acute infarct are seen in the left occipital and frontal lobes as described. These are most likely due to embolic phenomena. 3. Multiple areas of chronic ischemic change as detailed above.
--- NOTE | 2016-04-01 12:25 | Magnetic Resonance Report ---
MR ANGIOGRAPHY OF THE [place]: [id number] imaging with MIP reformations of the [place] is submitted. The arteries appear widely patent free of hemodynamically significant stenosis or aneurysm dilatation. Both vertebral arteries are identified appearing patent as well. IMPRESSION: Normal MR angiography of the [place].
--- NOTE | 2016-04-01 13:18 | Magnetic Resonance Report ---
MRA OF THE NECK WITHOUT CONTRAST: PROCEDURE: 2-D [id number] technique. FINDINGS: The study is limited without intravenous contrast. The common carotid bifurcations appear patent. No significant stenosis of the internal carotids is seen. The vertebral arteries are patent. IMPRESSION: Negative study.
--- NOTE | 2016-04-01 13:33 | Progress Note ---
Addendum entered and electronically signed by MASOOD HAWLEY MD 04/01/16 16:48 : Conservative cardiac management. Original Note: Assessment and Plan Acute respiratory failure requiring intubation no evidence of PE by V\Q scan Acute CVA Abnormal ECG no significant CAD by C 08/2015 Hx of aortic dissection s/p repair Hx of bioprosthetic aortic valve replacement normal function on echo 08/2015 Hypertension Supportive cardiac management. Subjective Date of service: 04/01/16 Interval history: No interval changes. Objective Vital Signs Temp Pulse Pulse Resp BP Pulse Ox 04/01/16 13:00 70 14 131/79 98 04/01/16 12:30 75 12 124/78 96 04/01/16 12:23 74 11 L 114/68 04/01/16 10:30 82 11 L 114/68 97 04/01/16 10:00 79 17 129/74 95 04/01/16 09:30 95 H 12 146/85 96 04/01/16 09:11 80 130/77 04/01/16 09:10 80 130/77 04/01/16 09:03 94 H 130/77 98 04/01/16 09:00 91 H 19 130/77 95 04/01/16 08:30 91 H 13 120/77 98 04/01/16 08:00 90 21 121/68 96 04/01/16 07:31 95 H 13 119/71 93 04/01/16 07:00 86 13 138/78 97 04/01/16 06:51 79 171/104 04/01/16 06:36 13 04/01/16 06:30 77 12 160/93 98 04/01/16 06:03 75 15 172/94 96 04/01/16 06:00 72 14 172/94 95 04/01/16 05:36 16 04/01/16 05:30 82 12 172/97 99 04/01/16 05:00 84 18 145/92 98 04/01/16 04:30 85 12 163/100 96 04/01/16 04:28 85 153/94 98 04/01/16 04:00 99.0 F 83 83 12 153/94 98 04/01/16 03:30 83 12 136/100 98 04/01/16 03:02 80 16 151/96 97 04/01/16 03:00 81 16 142/95 96 04/01/16 02:30 80 17 151/96 97 04/01/16 02:01 77 12 174/104 97 04/01/16 01:31 78 17 155/92 98 04/01/16 01:01 79 11 L 155/92 92 04/01/16 00:30 77 19 134/78 88 04/01/16 00:17 75 151/91 97 04/01/16 00:00 99.1 F 76 76 17 151/91 94 03/31/16 23:30 74 12 150/92 98 03/31/16 23:00 71 14 139/86 94 03/31/16 22:41 71 13 149/92 99 03/31/16 22:30 71 15 149/92 96 03/31/16 22:16 75 138/94 03/31/16 22:00 80 9 L 138/94 94 03/31/16 21:30 76 15 120/76 96 03/31/16 21:02 14 03/31/16 21:00 79 11 L 126/86 94 03/31/16 20:31 79 03/31/16 20:30 80 11 L 159/99 95 03/31/16 20:02 77 13 147/94 98 03/31/16 20:00 99.2 F 79 79 16 147/94 95 03/31/16 19:30 85 14 154/98 97 03/31/16 19:00 84 20 145/95 96 03/31/16 18:49 84 15 158/104 98 03/31/16 18:30 85 11 L 158/104 97 03/31/16 18:00 90 15 155/94 94 03/31/16 17:30 88 17 133/82 96 03/31/16 17:00 94 H 10 L 143/99 96 03/31/16 16:39 82 151/99 97 03/31/16 16:30 89 19 144/96 96 03/31/16 16:00 89 11 L 137/93 96 03/31/16 15:36 99.6 F 03/31/16 15:30 85 13 147/98 97 03/31/16 15:00 87 10 L 146/92 97 03/31/16 14:30 86 10 L 136/95 99 03/31/16 14:00 80 12 151/96 98 - Physical Examination General: Other (VENT) HEENT: Positive: PERRL Neck: Positive: neck supple Cardiac: Positive: Reg Rate and Rhythm Extremities: Present: normal - Labs and Meds CBC 04/01/16 Range/Units 05:35 WBC 12.1 H (4.5-11.0) K/mm3 RBC 4.73 (3.65-5.03) M/mm3 Hgb 12.3 (11.8-15.2) gm/dl Hct 38.2 (35.5-45.6) % Plt Count 212 (140-440) K/mm3 Lymph # 1.0 L (1.2-5.4) K/mm3 [place] # 1.7 H (0.0-0.8) K/mm3 Eos # 0.1 (0.0-0.4) K/mm3 Baso # 0.1 (0.0-0.1) K/mm3 Comprehensive Metabolic Panel 04/01/16 Range/Units 05:35 Sodium 142 (137-145) mmol/L Potassium 4.4 (3.6-5.0) mmol/L Chloride 105.5 (98-107) mmol/L Carbon Dioxide 22 (22-30) mmol/L BUN 17 (9-20) mg/dL Creatinine 1.2 (0.8-1.5) mg/dL Glucose 256 H (75-100) mg/dL Calcium 8.0 L (8.4-10.2) mg/dL - Imaging and Cardiology EKG: image reviewed
[2016-04-01] MEDS: LASIX IV SCH (18:43)
[2016-04-01] MEDS: ZOFRAN IV PRN (23:25)
[2016-04-02 05:17] LABS: ISTAT Base Excess 3; ISTAT HCO3 25.2; ISTAT PCO2 26.8 (35-45); ISTAT PH 7.582 (7.35-7.45); ISTAT PO2 82 (80-105); ISTAT SO2 98; ISTAT TCO2 26
[2016-04-02 05:35] LABS: Basophils % (Auto) 0.4 % (0.0-1.8); Eosinophils % (Auto) 0.5 % (0.0-4.3); Hematocrit 37.3 % (35.5-45.6); Mean Corpuscular HGB Conc 32 % (32-34); Mean Corpuscular Hemoglobin 26 pg (28-32); Mean Corpuscular Volume 81 fl (84-94); Platelet Count 256 K/mm3 (140-440); Red Cell Distribution Width 14.4 % (13.2-15.2); White Blood Count 12.4 K/mm3 (4.5-11.0)
[2016-04-02 05:58] LABS: BUN/Creatinine Ratio 15.83; Blood Urea Nitrogen 19 mg/dL (9-20); Carbon Dioxide 25 mmol/L (22-30); Chloride 106.3 mmol/L (98-107); Glucose 334 mg/dL (75-100); Potassium 4.1 mmol/L (3.6-5.0); Sodium 146 mmol/L (137-145)
[2016-04-02 06:01] LABS: Anion Gap 19 mmol/L
[2016-04-02] MEDS: HEPARIN SUB-Q SCH ×4 (06:23→22:17)
[2016-04-02] MEDS: LASIX IV SCH (06:23)
[2016-04-02] MEDS: NOVOLOG SUB-Q SCH ×5 (06:29→18:43)
--- NOTE | 2016-04-02 08:47 | Progress Note ---
Assessment and Plan Acute respiratory failure. Currently on SBT, well tolerated Stroke.See MRI. No additional findings on MRA's. Discussed that the patient may need further evaluation with [facility]. Slowly improved Some chest congestion still noted. CXR unchanged, BNP better HTN Hiccups. Slightly better Recommendations Continue SBT A pressure support/CPAP 8/5 is tolerated consider ABGs and extubation Extubation precautions Needs further control blood sugar. Discussed initiating insulin drip and avoid hypoglycemia Discontinue Lasix Discussed in detail with RT, nursing staff. CC time 31 min of [id number] interaction with the patient and coordination of care Subjective Date of service: 04/02/16 Interval history: Signals no shortness of breath at this time. Objective Vital Signs - 12hr 04/01/16 04/01/16 04/01/16 21:00 21:30 22:00 Temperature Pulse Rate 82 81 79 Pulse Rate [ From Monitor] Respiratory 15 13 11 L Rate Blood Pressure 171/97 168/95 158/98 O2 Sat by Pulse 98 96 96 Oximetry 04/01/16 04/01/16 04/01/16 22:30 23:00 23:05 Temperature Pulse Rate 79 80 75 Pulse Rate [ From Monitor] Respiratory 15 13 Rate Blood Pressure 178/96 180/99 180/99 O2 Sat by Pulse 95 97 Oximetry 04/01/16 04/01/16 04/01/16 23:07 23:30 23:34 Temperature Pulse Rate 82 88 82 Pulse Rate [ From Monitor] Respiratory 19 11 L Rate Blood Pressure 180/99 178/97 178/97 O2 Sat by Pulse 99 97 97 Oximetry 04/02/16 04/02/16 04/02/16 00:00 00:30 01:00 Temperature 98.1 F Pulse Rate 74 76 77 Pulse Rate [ 77 From Monitor] Respiratory 12 16 12 Rate Blood Pressure 142/83 135/80 143/88 O2 Sat by Pulse 96 97 96 Oximetry 04/02/16 04/02/16 04/02/16 01:07 01:30 02:00 Temperature Pulse Rate 78 76 81 Pulse Rate [ From Monitor] Respiratory 15 18 20 Rate Blood Pressure 143/88 134/79 170/100 O2 Sat by Pulse 97 97 96 Oximetry 04/02/16 04/02/16 04/02/16 02:09 02:30 03:00 Temperature Pulse Rate 77 74 78 Pulse Rate [ From Monitor] Respiratory 16 14 14 Rate Blood Pressure 170/100 149/85 139/90 O2 Sat by Pulse 99 96 100 Oximetry 04/02/16 04/02/16 04/02/16 03:28 03:30 04:00 Temperature 98.7 F Pulse Rate 77 77 80 Pulse Rate [ 87 From Monitor] Respiratory 16 12 Rate Blood Pressure 139/90 163/87 150/96 O2 Sat by Pulse 98 98 98 Oximetry 04/02/16 04/02/16 04/02/16 04:30 05:00 05:30 Temperature Pulse Rate 78 77 82 Pulse Rate [ From Monitor] Respiratory 20 12 13 Rate Blood Pressure 164/98 166/98 165/105 O2 Sat by Pulse 98 96 Oximetry 04/02/16 04/02/16 04/02/16 06:00 06:30 07:00 Temperature Pulse Rate 79 83 83 Pulse Rate [ From Monitor] Respiratory 13 14 19 Rate Blood Pressure 157/95 165/104 160/100 O2 Sat by Pulse 98 99 Oximetry 04/02/16 04/02/16 04/02/16 07:30 08:00 08:22 Temperature 98.4 F Pulse Rate 86 85 Pulse Rate [ From Monitor] Respiratory 13 Rate Blood Pressure 135/94 151/97 O2 Sat by Pulse 97 99 Oximetry 04/02/16 08:32 Temperature Pulse Rate 83 Pulse Rate [ From Monitor] Respiratory 19 Rate Blood Pressure 162/100 O2 Sat by Pulse 100 Oximetry Constitutional: no acute distress, asleep, other (follow commands) Eyes: non-icteric ENT: other (orally intubated and sedated) Neck: supple Effort: normal Ascultation: Bilateral: clear Cardiovascular: regular rate and rhythm, irregular rhythm Gastrointestinal: normoactive bowel sounds, soft, non-tender Neurologic: other (RASS 0 ) CBC and BMP: 04/02/16 05:00 04/02/16 05:00 ABG, PT/INR, D-dimer: ABG POC ABG pH 7.582 (7.35-7.45) H 04/02/16 04:17 POC ABG pCO2 26.8 (35-45) L 04/02/16 04:17 POC ABG pO2 82 (80-105) 04/02/16 04:17 POC ABG HCO3 25.2 04/02/16 04:17 POC ABG Total CO2 26 04/02/16 04:17 POC ABG O2 Sat 98 04/02/16 04:17 PT/INR, D-dimer PT 14.6 Sec. (12.2-14.9) 03/24/16 14:00 INR 1.15 (0.87-1.13) H 03/24/16 14:00 Abnormal lab findings: Abnormal Labs 03/24/16 03/24/16 03/24/16 17:58 20:25 23:23 WBC RBC Hgb Hct MCV MCH MCHC Plt Count Lymph % (Auto) [place] % (Auto) Lymph # [place] # Seg Neutrophils % Seg Neuts % (Manual) Lymphocytes % (Manual) Seg Neutrophils # Seg Neutrophils # Man Lymphocytes # (Manual) Monocytes # (Manual) POC ABG pH POC ABG pCO2 POC ABG pO2 Sodium 169 H* Potassium 3.5 L Chloride 130.3 H Carbon Dioxide BUN 28 H Creatinine 1.8 H Glucose POC Glucose 112 H Calcium Phosphorus Lactate Dehydrogenase Total Creatine Kinase NT-Pro-B Natriuret Pep Albumin Nmoxs-9-Emmgonetd Ybmsn-6-Rauurwekr Beta Globulins PEP Interpretation Cholesterol 221 H LDL Cholesterol Direct 146 H 03/25/16 03/25/16 03/25/16 05:56 05:56 05:56 WBC 21.3 H RBC 6.32 H Hgb 16.7 H Hct 52.7 H MCV 83 L MCH 27 L MCHC Plt Count Lymph % (Auto) [place] % (Auto) Lymph # [place] # Seg Neutrophils % Seg Neuts % (Manual) 91.0 H Lymphocytes % (Manual) 4.0 L Seg Neutrophils # Seg Neutrophils # Man 19.4 H Lymphocytes # (Manual) 0.9 L Monocytes # (Manual) 0.9 H POC ABG pH POC ABG pCO2 POC ABG pO2 Sodium 172 H* Potassium 3.5 L Chloride 130.4 H Carbon Dioxide BUN 29 H Creatinine 1.8 H Glucose 187 H POC Glucose Calcium Phosphorus Lactate Dehydrogenase 460 H Total Creatine Kinase NT-Pro-B Natriuret Pep Albumin Lslfj-2-Poshiwwhk Wlhnn-5-Mioddcdiz Beta Globulins PEP Interpretation Cholesterol LDL Cholesterol Direct 03/25/16 03/25/16 03/25/16 07:55 12:19 13:00 WBC RBC Hgb Hct MCV MCH MCHC Plt Count Lymph % (Auto) [place] % (Auto) Lymph # [place] # Seg Neutrophils % Seg Neuts % (Manual) Lymphocytes % (Manual) Seg Neutrophils # Seg Neutrophils # Man Lymphocytes # (Manual) Monocytes # (Manual) POC ABG pH POC ABG pCO2 POC ABG pO2 Sodium Potassium Chloride Carbon Dioxide BUN Creatinine Glucose POC Glucose 231 H 314 H Calcium Phosphorus Lactate Dehydrogenase Total Creatine Kinase NT-Pro-B Natriuret Pep Albumin 3.4 L Oznkt-6-Lxffnojum 0.4 H Oeede-9-Ppnrwwnyj 1.1 H Beta Globulins 0.6 H PEP Interpretation see below H Cholesterol LDL Cholesterol Direct 03/25/16 03/25/16 03/26/16 16:41 22:45 08:32 WBC RBC Hgb Hct MCV MCH MCHC Plt Count Lymph % (Auto) [place] % (Auto) Lymph # [place] # Seg Neutrophils % Seg Neuts % (Manual) Lymphocytes % (Manual) Seg Neutrophils # Seg Neutrophils # Man Lymphocytes # (Manual) Monocytes # (Manual) POC ABG pH POC ABG pCO2 POC ABG pO2 Sodium Potassium Chloride Carbon Dioxide BUN Creatinine Glucose POC Glucose 444 H 326 H 360 H Calcium Phosphorus Lactate Dehydrogenase Total Creatine Kinase NT-Pro-B Natriuret Pep Albumin Pufds-2-Lhrexcoux Tguqy-3-Lemqqsphb Beta Globulins PEP Interpretation Cholesterol LDL Cholesterol Direct 03/26/16 03/26/16 03/26/16 12:38 15:33 15:47 WBC RBC Hgb Hct MCV MCH MCHC Plt Count Lymph % (Auto) [place] % (Auto) Lymph # [place] # Seg Neutrophils % Seg Neuts % (Manual) Lymphocytes % (Manual) Seg Neutrophils # Seg Neutrophils # Man Lymphocytes # (Manual) Monocytes # (Manual) POC ABG pH 7.511 H POC ABG pCO2 26.5 L POC ABG pO2 70 L Sodium Potassium Chloride Carbon Dioxide BUN Creatinine Glucose POC Glucose 280 H 174 H Calcium Phosphorus Lactate Dehydrogenase Total Creatine Kinase NT-Pro-B Natriuret Pep Albumin Fgjjz-6-Vnavpdzme Wfdzu-7-Dfbrizhmv Beta Globulins PEP Interpretation Cholesterol LDL Cholesterol Direct 03/26/16 03/26/16 03/26/16 16:47 16:47 18:51 WBC 14.0 H RBC 5.17 H Hgb Hct MCV MCH 26 L MCHC 31 L Plt Count 139 L Lymph % (Auto) [place] % (Auto) Lymph # [place] # Seg Neutrophils % Seg Neuts % (Manual) Lymphocytes % (Manual) Seg Neutrophils # Seg Neutrophils # Man Lymphocytes # (Manual) Monocytes # (Manual) POC ABG pH POC ABG pCO2 33.9 L POC ABG pO2 150 H Sodium 164 H* Potassium 3.4 L Chloride 128.5 H Carbon Dioxide BUN 30 H Creatinine 2.2 H Glucose 121 H POC Glucose Calcium 8.1 L Phosphorus Lactate Dehydrogenase Total Creatine Kinase NT-Pro-B Natriuret Pep Albumin Jwxjk-3-Fjboienop Ccodf-7-Aempwstzs Beta Globulins PEP Interpretation Cholesterol LDL Cholesterol Direct 03/27/16 03/27/16 03/27/16 02:19 05:47 06:02 WBC RBC Hgb Hct MCV MCH MCHC Plt Count Lymph % (Auto) [place] % (Auto) Lymph # [place] # Seg Neutrophils % Seg Neuts % (Manual) Lymphocytes % (Manual) Seg Neutrophils # Seg Neutrophils # Man Lymphocytes # (Manual) Monocytes # (Manual) POC ABG pH POC ABG pCO2 27.3 L 30.3 L POC ABG pO2 50 L 112 H Sodium 158 H Potassium Chloride 126.7 H Carbon Dioxide 20 L BUN 25 H Creatinine 1.7 H Glucose POC Glucose Calcium 7.0 L Phosphorus Lactate Dehydrogenase Total Creatine Kinase NT-Pro-B Natriuret Pep Albumin Lpsky-3-Vwlzvwdey Jbqcx-7-Pwpwgcmsb Beta Globulins PEP Interpretation Cholesterol LDL Cholesterol Direct 03/27/16 03/27/16 03/27/16 07:51 09:20 11:45 WBC 14.2 H RBC Hgb Hct MCV 83 L MCH 27 L MCHC Plt Count 113 L Lymph % (Auto) [place] % (Auto) Lymph # [place] # Seg Neutrophils % Seg Neuts % (Manual) Lymphocytes % (Manual) Seg Neutrophils # Seg Neutrophils # Man Lymphocytes # (Manual) Monocytes # (Manual) POC ABG pH POC ABG pCO2 POC ABG pO2 Sodium Potassium Chloride Carbon Dioxide BUN Creatinine Glucose POC Glucose 124 H 241 H Calcium Phosphorus Lactate Dehydrogenase Total Creatine Kinase NT-Pro-B Natriuret Pep Albumin Tspzj-4-Bpisarvke Wniub-5-Noildypqp Beta Globulins PEP Interpretation Cholesterol LDL Cholesterol Direct 03/27/16 03/27/16 03/28/16 16:39 22:03 03:29 WBC RBC Hgb Hct MCV MCH MCHC Plt Count Lymph % (Auto) [place] % (Auto) Lymph # [place] # Seg Neutrophils % Seg Neuts % (Manual) Lymphocytes % (Manual) Seg Neutrophils # Seg Neutrophils # Man Lymphocytes # (Manual) Monocytes # (Manual) POC ABG pH POC ABG pCO2 POC ABG pO2 Sodium Potassium Chloride Carbon Dioxide BUN Creatinine Glucose POC Glucose 266 H 167 H 241 H Calcium Phosphorus Lactate Dehydrogenase Total Creatine Kinase NT-Pro-B Natriuret Pep Albumin Nrlns-4-Vtakqocbs Jurvi-0-Ckfwtecai Beta Globulins PEP Interpretation Cholesterol LDL Cholesterol Direct 03/28/16 03/28/16 03/28/16 05:00 05:00 05:00 WBC RBC Hgb Hct MCV 83 L MCH 27 L MCHC Plt Count 106 L Lymph % (Auto) [place] % (Auto) 10.1 H Lymph # [place] # 1.0 H Seg Neutrophils % 75.1 H Seg Neuts % (Manual) Lymphocytes % (Manual) Seg Neutrophils # Seg Neutrophils # Man Lymphocytes # (Manual) Monocytes # (Manual) POC ABG pH POC ABG pCO2 POC ABG pO2 Sodium 147 H D Potassium 3.1 L D Chloride 112.3 H Carbon Dioxide 21 L BUN Creatinine Glucose 208 H POC Glucose Calcium 7.0 L Phosphorus 2.2 L Lactate Dehydrogenase Total Creatine Kinase NT-Pro-B Natriuret Pep Albumin Sxoas-0-Rfctulahp Rhwhh-3-Hrouhgwti Beta Globulins PEP Interpretation Cholesterol LDL Cholesterol Direct 03/28/16 03/28/16 03/28/16 05:14 08:41 10:56 WBC RBC Hgb Hct MCV MCH MCHC Plt Count Lymph % (Auto) [place] % (Auto) Lymph # [place] # Seg Neutrophils % Seg Neuts % (Manual) Lymphocytes % (Manual) Seg Neutrophils # Seg Neutrophils # Man Lymphocytes # (Manual) Monocytes # (Manual) POC ABG pH 7.457 H POC ABG pCO2 29.7 L 27.7 L POC ABG pO2 Sodium Potassium Chloride Carbon Dioxide BUN Creatinine Glucose POC Glucose 228 H Calcium Phosphorus Lactate Dehydrogenase Total Creatine Kinase NT-Pro-B Natriuret Pep Albumin Swjtc-4-Zrzebxjul Lkdin-9-Bhbbtnvqo Beta Globulins PEP Interpretation Cholesterol LDL Cholesterol Direct 03/28/16 03/28/16 03/28/16 11:37 13:29 16:22 WBC RBC Hgb Hct MCV MCH MCHC Plt Count Lymph % (Auto) [place] % (Auto) Lymph # [place] # Seg Neutrophils % Seg Neuts % (Manual) Lymphocytes % (Manual) Seg Neutrophils # Seg Neutrophils # Man Lymphocytes # (Manual) Monocytes # (Manual) POC ABG pH POC ABG pCO2 POC ABG pO2 Sodium Potassium Chloride Carbon Dioxide BUN Creatinine Glucose POC Glucose 226 H 200 H Calcium Phosphorus Lactate Dehydrogenase Total Creatine Kinase 356 H NT-Pro-B Natriuret Pep Albumin Bthyi-3-Sxuvxrcqd Blivf-0-Czmvefflt Beta Globulins PEP Interpretation Cholesterol LDL Cholesterol Direct 03/28/16 03/29/16 03/29/16 21:48 04:50 04:50 WBC RBC Hgb 11.5 L Hct 35.3 L MCV 81 L MCH 26 L MCHC Plt Count 97 L Lymph % (Auto) [place] % (Auto) 11.7 H Lymph # [place] # 1.1 H Seg Neutrophils % Seg Neuts % (Manual) Lymphocytes % (Manual) Seg Neutrophils # Seg Neutrophils # Man Lymphocytes # (Manual) Monocytes # (Manual) POC ABG pH POC ABG pCO2 POC ABG pO2 Sodium 136 L D Potassium 3.3 L Chloride Carbon Dioxide 20 L BUN Creatinine Glucose 386 H POC Glucose 188 H Calcium 6.8 L Phosphorus 1.6 L D Lactate Dehydrogenase Total Creatine Kinase NT-Pro-B Natriuret Pep Albumin Dwnhx-4-Xpfuufrys Peglq-2-Enffieuqx Beta Globulins PEP Interpretation Cholesterol LDL Cholesterol Direct 03/29/16 03/29/16 03/29/16 08:10 11:12 16:09 WBC RBC Hgb Hct MCV MCH MCHC Plt Count Lymph % (Auto) [place] % (Auto) Lymph # [place] # Seg Neutrophils % Seg Neuts % (Manual) Lymphocytes % (Manual) Seg Neutrophils # Seg Neutrophils # Man Lymphocytes # (Manual) Monocytes # (Manual) POC ABG pH POC ABG pCO2 POC ABG pO2 Sodium Potassium Chloride Carbon Dioxide BUN Creatinine Glucose POC Glucose 230 H 180 H 46 L Calcium Phosphorus Lactate Dehydrogenase Total Creatine Kinase NT-Pro-B Natriuret Pep Albumin Eibtg-5-Rodfmpkxz Sdinm-9-Hndoqlghn Beta Globulins PEP Interpretation Cholesterol LDL Cholesterol Direct 03/29/16 03/29/16 03/30/16 16:12 18:15 02:53 WBC RBC Hgb Hct MCV MCH MCHC Plt Count Lymph % (Auto) [place] % (Auto) Lymph # [place] # Seg Neutrophils % Seg Neuts % (Manual) Lymphocytes % (Manual) Seg Neutrophils # Seg Neutrophils # Man Lymphocytes # (Manual) Monocytes # (Manual) POC ABG pH POC ABG pCO2 POC ABG pO2 Sodium Potassium Chloride Carbon Dioxide BUN Creatinine Glucose POC Glucose 52 L 118 H 130 H Calcium Phosphorus Lactate Dehydrogenase Total Creatine Kinase NT-Pro-B Natriuret Pep Albumin Ocuhm-0-Fuhhvuftw Uxrvg-7-Yavuglogj Beta Globulins PEP Interpretation Cholesterol LDL Cholesterol Direct 03/30/16 03/30/16 03/30/16 04:00 04:00 05:29 WBC RBC Hgb Hct MCV 81 L MCH 26 L MCHC Plt Count 116 L Lymph % (Auto) 10.8 L [place] % (Auto) 13.1 H Lymph # 1.0 L [place] # 1.3 H Seg Neutrophils % 74.2 H Seg Neuts % (Manual) Lymphocytes % (Manual) Seg Neutrophils # Seg Neutrophils # Man Lymphocytes # (Manual) Monocytes # (Manual) POC ABG pH 7.522 H POC ABG pCO2 22.7 L POC ABG pO2 137 H Sodium 147 H D Potassium Chloride 115.5 H Carbon Dioxide 20 L BUN Creatinine Glucose 116 H POC Glucose Calcium 7.6 L Phosphorus 2.3 L D Lactate Dehydrogenase Total Creatine Kinase NT-Pro-B Natriuret Pep Albumin Lpofu-1-Qasezswwz Toxrm-2-Wtqgdngqu Beta Globulins PEP Interpretation Cholesterol LDL Cholesterol Direct 03/30/16 03/30/16 03/30/16 05:47 08:05 08:59 WBC RBC Hgb Hct MCV MCH MCHC Plt Count Lymph % (Auto) [place] % (Auto) Lymph # [place] # Seg Neutrophils % Seg Neuts % (Manual) Lymphocytes % (Manual) Seg Neutrophils # Seg Neutrophils # Man Lymphocytes # (Manual) Monocytes # (Manual) POC ABG pH POC ABG pCO2 26.2 L POC ABG pO2 115 H Sodium Potassium Chloride Carbon Dioxide BUN Creatinine Glucose POC Glucose 138 H 171 H Calcium Phosphorus Lactate Dehydrogenase Total Creatine Kinase NT-Pro-B Natriuret Pep Albumin Jsluw-2-Wkwqbfysa Dewnc-7-Ovymfmxux Beta Globulins PEP Interpretation Cholesterol LDL Cholesterol Direct 03/30/16 03/30/16 03/30/16 12:11 12:11 16:39 WBC RBC Hgb Hct MCV MCH MCHC Plt Count Lymph % (Auto) [place] % (Auto) Lymph # [place] # Seg Neutrophils % Seg Neuts % (Manual) Lymphocytes % (Manual) Seg Neutrophils # Seg Neutrophils # Man Lymphocytes # (Manual) Monocytes # (Manual) POC ABG pH 7.476 H POC ABG pCO2 29.0 L POC ABG pO2 Sodium Potassium Chloride Carbon Dioxide BUN Creatinine Glucose POC Glucose 142 H 59 L Calcium Phosphorus Lactate Dehydrogenase Total Creatine Kinase NT-Pro-B Natriuret Pep Albumin Qkpsx-0-Ndytwnkiw Zomvl-1-Jevmrfjtk Beta Globulins PEP Interpretation Cholesterol LDL Cholesterol Direct 03/30/16 03/30/16 03/31/16 18:41 21:59 05:02 WBC RBC Hgb Hct MCV MCH MCHC Plt Count Lymph % (Auto) [place] % (Auto) Lymph # [place] # Seg Neutrophils % Seg Neuts % (Manual) Lymphocytes % (Manual) Seg Neutrophils # Seg Neutrophils # Man Lymphocytes # (Manual) Monocytes # (Manual) POC ABG pH 7.519 H POC ABG pCO2 21.8 L POC ABG pO2 142 H Sodium Potassium Chloride Carbon Dioxide BUN Creatinine Glucose POC Glucose 145 H 154 H Calcium Phosphorus Lactate Dehydrogenase Total Creatine Kinase NT-Pro-B Natriuret Pep Albumin Ekgzw-2-Dqppmvlha Eauox-5-Bjkvjklbi Beta Globulins PEP Interpretation Cholesterol LDL Cholesterol Direct 03/31/16 03/31/16 03/31/16 05:15 05:15 05:15 WBC 13.4 H RBC 5.21 H Hgb Hct MCV 81 L MCH 26 L MCHC Plt Count Lymph % (Auto) 9.5 L [place] % (Auto) 14.0 H Lymph # [place] # 1.9 H Seg Neutrophils % 75.0 H Seg Neuts % (Manual) Lymphocytes % (Manual) Seg Neutrophils # 10.1 H Seg Neutrophils # Man Lymphocytes # (Manual) Monocytes # (Manual) POC ABG pH POC ABG pCO2 POC ABG pO2 Sodium Potassium Chloride 108.5 H Carbon Dioxide 19 L BUN Creatinine Glucose 188 H POC Glucose Calcium Phosphorus Lactate Dehydrogenase Total Creatine Kinase NT-Pro-B Natriuret Pep 1089 H Albumin Arfpj-9-Nzzifmpff Srtcd-2-Zzpggeygx Beta Globulins PEP Interpretation Cholesterol LDL Cholesterol Direct 03/31/16 03/31/16 03/31/16 07:23 11:12 15:20 WBC RBC Hgb Hct MCV MCH MCHC Plt Count Lymph % (Auto) [place] % (Auto) Lymph # [place] # Seg Neutrophils % Seg Neuts % (Manual) Lymphocytes % (Manual) Seg Neutrophils # Seg Neutrophils # Man Lymphocytes # (Manual) Monocytes # (Manual) POC ABG pH POC ABG pCO2 POC ABG pO2 Sodium Potassium Chloride Carbon Dioxide BUN Creatinine Glucose POC Glucose 233 H 228 H 208 H Calcium Phosphorus Lactate Dehydrogenase Total Creatine Kinase NT-Pro-B Natriuret Pep Albumin Gdfol-8-Dkttcnfoh Iptze-8-Gdwlpascl Beta Globulins PEP Interpretation Cholesterol LDL Cholesterol Direct 03/31/16 04/01/16 04/01/16 21:27 04:41 05:35 WBC 12.1 H RBC Hgb Hct MCV 81 L MCH 26 L MCHC Plt Count Lymph % (Auto) 8.5 L [place] % (Auto) 14.0 H Lymph # 1.0 L [place] # 1.7 H Seg Neutrophils % 76.2 H Seg Neuts % (Manual) Lymphocytes % (Manual) Seg Neutrophils # 9.2 H Seg Neutrophils # Man Lymphocytes # (Manual) Monocytes # (Manual) POC ABG pH 7.455 H POC ABG pCO2 31.0 L POC ABG pO2 Sodium Potassium Chloride Carbon Dioxide BUN Creatinine Glucose POC Glucose 162 H Calcium Phosphorus Lactate Dehydrogenase Total Creatine Kinase NT-Pro-B Natriuret Pep Albumin Cjbrw-1-Axswgowba Kehij-6-Tmvnugqdi Beta Globulins PEP Interpretation Cholesterol LDL Cholesterol Direct 04/01/16 04/01/16 04/01/16 05:35 08:44 12:49 WBC RBC Hgb Hct MCV MCH MCHC Plt Count Lymph % (Auto) [place] % (Auto) Lymph # [place] # Seg Neutrophils % Seg Neuts % (Manual) Lymphocytes % (Manual) Seg Neutrophils # Seg Neutrophils # Man Lymphocytes # (Manual) Monocytes # (Manual) POC ABG pH POC ABG pCO2 POC ABG pO2 Sodium Potassium Chloride Carbon Dioxide BUN Creatinine Glucose 256 H POC Glucose 257 H 279 H Calcium 8.0 L Phosphorus Lactate Dehydrogenase Total Creatine Kinase NT-Pro-B Natriuret Pep 1205 H Albumin Hkmyx-8-Fxritkcbi Wtjer-6-Msknodhyh Beta Globulins PEP Interpretation Cholesterol LDL Cholesterol Direct 04/01/16 04/02/16 04/02/16 18:12 00:42 04:17 WBC RBC Hgb Hct MCV MCH MCHC Plt Count Lymph % (Auto) [place] % (Auto) Lymph # [place] # Seg Neutrophils % Seg Neuts % (Manual) Lymphocytes % (Manual) Seg Neutrophils # Seg Neutrophils # Man Lymphocytes # (Manual) Monocytes # (Manual) POC ABG pH 7.582 H POC ABG pCO2 26.8 L POC ABG pO2 Sodium Potassium Chloride Carbon Dioxide BUN Creatinine Glucose POC Glucose 168 H 282 H Calcium Phosphorus Lactate Dehydrogenase Total Creatine Kinase NT-Pro-B Natriuret Pep Albumin Auewc-3-Fugjviqzu Cbgyp-9-Cexstmcrr Beta Globulins PEP Interpretation Cholesterol LDL Cholesterol Direct 04/02/16 04/02/16 05:00 05:00 WBC 12.4 H RBC Hgb Hct MCV 81 L MCH 26 L MCHC Plt Count Lymph % (Auto) 6.4 L [place] % (Auto) 13.3 H Lymph # 0.8 L [place] # 1.7 H Seg Neutrophils % 79.4 H Seg Neuts % (Manual) Lymphocytes % (Manual) Seg Neutrophils # 9.9 H Seg Neutrophils # Man Lymphocytes # (Manual) Monocytes # (Manual) POC ABG pH POC ABG pCO2 POC ABG pO2 Sodium 146 H Potassium Chloride Carbon Dioxide BUN Creatinine Glucose 334 H POC Glucose Calcium 8.0 L Phosphorus Lactate Dehydrogenase Total Creatine Kinase NT-Pro-B Natriuret Pep Albumin Uwugs-5-Fmjmwklst Fludi-3-Ztxjoupza Beta Globulins PEP Interpretation Cholesterol LDL Cholesterol Direct
[2016-04-02] MEDS: NORMODYNE PO SCH ×2 (09:04→22:15)
[2016-04-02] MEDS: ASPIRIN PO SCH (09:04)
[2016-04-02] MEDS: KEPPRA PO SCH ×2 (09:05→22:16)
[2016-04-02] MEDS: PEPCID PO SCH ×2 (09:05→22:16)
[2016-04-02] MEDS: CORDARONE PO SCH (09:05)
[2016-04-02] MEDS: ZESTRIL PO SCH ×2 (09:05→22:15)
--- NOTE | 2016-04-02 09:13 | XRay Report ---
AP CHEST :04/02/16 01:56 CLINICAL: Intubated.Follow up respiratory failure. COMPARISON:The previous day. FINDINGS: The endotracheal tube is in satisfactory position. The feeding tube is satisfactory. No other tubes or lines. Stable cardiomegaly. Normal pulmonary vessels. Lungs are normally expanded and clear. No pneumothorax. IMPRESSION: Cardiomegaly but no CHF.No pneumonia.
--- NOTE | 2016-04-02 09:53 | Progress Note ---
Assessment and Plan Assessment and plan: 1. Acute respiratory failure-continue vent management as per critical care. Patient to have spontaneous breathing trials today. ? Acute diastolic heart failure. We will discuss with cardiology. Patient with elevated BNP. Lasix 20 mg twice a day. Echocardiogram revealed concentric LVH with an EF of 65-70%. 2. Acute CVA. CT scan revealed acute ischemic infarct in the right cerebellum. MRI reveals subacute infarct in the right cerebellar hemisphere with associated edema and mass effect as previously described. Patient also with multiple areas of acute infarct in the left occipital and frontal lobes that are most likely embolic. ? LIZZIE. Continue aspirin and statin. 3. Hypernatremia -resolved. Continue to monitor BMP. 4. Metabolic encephalopathy-f/u MRI/MRA head/neck. Continue management as discussed above. EEG normal. 5. Group B strep UTI-continue IV ceftriaxone; wbc normal and afebrile 6. Accelerated hypertension. Continue medications of lisinopril and labetalol 7. CAD-stable, continue current beta em, statin 8. Seizures-continue Keppra. EEG normal. 9. Diabetes type 2 with insulin dependence-continue insulin regimen, continue to monitor Accu-Cheks 10. History of aortic dissection status post repair. 11. History of prosthetic aortic valve replacement. Echo with normal function on 08/2015. 12. DVT prophylaxis-Lovenox 13. GI prophylaxis-Pepcid The high probability of a clinically significant, sudden or life threatening deterioration of the [respiratory and neurological] system(s) required my full and direct attention, intervention and personal management. The aggregate critical care time was [31] minutes. This time is in addition to time spent performing reported procedures but includes the following: [x] Data Review and interpretation [x] Patient assessment and monitoring of vital signs [x] Documentation [x] Medication orders and management History Interval history: Patient is currently intubated with no new issues overnight. Hospitalist Physical - Constitutional Vitals: Temp Pulse Resp BP Pulse Ox 98.4 F 86 14 169/106 98 04/02/16 08:00 04/02/16 09:30 04/02/16 09:30 04/02/16 09:30 04/02/16 09:30 General appearance: Present: other (vented) - EENT Eyes: Present: PERRL, EOM intact ENT: hearing intact, clear oral mucosa, dentition normal - Neck Neck: Present: supple, normal ROM - Respiratory Respiratory effort: normal Respiratory: bilateral: diminished, rhonchi - Cardiovascular Rhythm: regular Heart Sounds: Present: S1 & S2. Absent: gallop, rub - Extremities Extremities: no ischemia, No edema, Full ROM - Abdominal General gastrointestinal: soft, non-tender, non-distended, normal bowel sounds - Integumentary Integumentary: Present: clear, warm, dry - Neurologic Neurologic: CNII-XII intact, moves all extremities Results - Labs CBC & Chem 7: 04/02/16 05:00 04/02/16 05:00 Labs: Laboratory Last Values WBC 12.4 K/mm3 (4.5-11.0) H 04/02/16 05:00 RBC 4.60 M/mm3 (3.65-5.03) 04/02/16 05:00 Hgb 12.0 gm/dl (11.8-15.2) 04/02/16 05:00 Hct 37.3 % (35.5-45.6) 04/02/16 05:00 MCV 81 fl (84-94) L 04/02/16 05:00 MCH 26 pg (28-32) L 04/02/16 05:00 MCHC 32 % (32-34) 04/02/16 05:00 RDW 14.4 % (13.2-15.2) 04/02/16 05:00 Plt Count 256 K/mm3 (140-440) 04/02/16 05:00 Lymph % (Auto) 6.4 % (13.4-35.0) L 04/02/16 05:00 [place] % (Auto) 13.3 % (0.0-7.3) H 04/02/16 05:00 Eos % (Auto) 0.5 % (0.0-4.3) 04/02/16 05:00 Baso % (Auto) 0.4 % (0.0-1.8) 04/02/16 05:00 Lymph # 0.8 K/mm3 (1.2-5.4) L 04/02/16 05:00 [place] # 1.7 K/mm3 (0.0-0.8) H 04/02/16 05:00 Eos # 0.1 K/mm3 (0.0-0.4) 04/02/16 05:00 Baso # 0.1 K/mm3 (0.0-0.1) 04/02/16 05:00 Add Manual Diff Complete 03/25/16 05:56 Total Counted 100 03/25/16 05:56 Seg Neutrophils % 79.4 % (40.0-70.0) H 04/02/16 05:00 Seg Neuts % (Manual) 91.0 % (40.0-70.0) H 03/25/16 05:56 Band Neutrophils % 1.0 % 03/25/16 05:56 Lymphocytes % (Manual) 4.0 % (13.4-35.0) L 03/25/16 05:56 Reactive Lymphs % (Man) 0 % 03/25/16 05:56 Monocytes % (Manual) 4.0 % (0.0-7.3) 03/25/16 05:56 Eosinophils % (Manual) 0 % (0.0-4.3) 03/25/16 05:56 Basophils % (Manual) 0 % (0.0-1.8) 03/25/16 05:56 Metamyelocytes % 0 % 03/25/16 05:56 Myelocytes % 0 % 03/25/16 05:56 Promyelocytes % 0 % 03/25/16 05:56 Blast Cells % 0 % 03/25/16 05:56 Nucleated RBC % Not Reportable 03/25/16 05:56 Seg Neutrophils # 9.9 K/mm3 (1.8-7.7) H 04/02/16 05:00 Seg Neutrophils # Man 19.4 K/mm3 (1.8-7.7) H 03/25/16 05:56 Band Neutrophils # 0.2 K/mm3 03/25/16 05:56 Lymphocytes # (Manual) 0.9 K/mm3 (1.2-5.4) L 03/25/16 05:56 Abs React Lymphs (Man) 0.0 K/mm3 03/25/16 05:56 Monocytes # (Manual) 0.9 K/mm3 (0.0-0.8) H 03/25/16 05:56 Eosinophils # (Manual) 0.0 K/mm3 (0.0-0.4) 03/25/16 05:56 Basophils # (Manual) 0.0 K/mm3 (0.0-0.1) 03/25/16 05:56 Metamyelocytes # 0.0 K/mm3 03/25/16 05:56 Myelocytes # 0.0 K/mm3 03/25/16 05:56 Promyelocytes # 0.0 K/mm3 03/25/16 05:56 Blast Cells # 0.0 K/mm3 03/25/16 05:56 WBC Morphology Not Reportable 03/25/16 05:56 Hypersegmented Neuts Not Reportable 03/25/16 05:56 Hyposegmented Neuts Not Reportable 03/25/16 05:56 Hypogranular Neuts Not Reportable 03/25/16 05:56 Smudge Cells Not Reportable 03/25/16 05:56 Toxic Granulation Not Reportable 03/25/16 05:56 Toxic Vacuolation Not Reportable 03/25/16 05:56 Dohle Bodies Not Reportable 03/25/16 05:56 Pelger-Huet Anomaly Not Reportable 03/25/16 05:56 Corina Rods Not Reportable 03/25/16 05:56 Platelet Estimate Appears normal 03/25/16 05:56 Clumped Platelets Not Reportable 03/25/16 05:56 Plt Clumps, EDTA Not Reportable 03/25/16 05:56 Large Platelets Not Reportable 03/25/16 05:56 Giant Platelets Not Reportable 03/25/16 05:56 Platelet Satelliting Not Reportable 03/25/16 05:56 Plt Morphology Comment Not Reportable 03/25/16 05:56 RBC Morphology Normal 03/25/16 05:56 Dimorphic RBCs Not Reportable 03/25/16 05:56 Polychromasia Not Reportable 03/25/16 05:56 Hypochromasia Not Reportable 03/25/16 05:56 Poikilocytosis Not Reportable 03/25/16 05:56 Anisocytosis Not Reportable 03/25/16 05:56 Microcytosis Not Reportable 03/25/16 05:56 Macrocytosis Not Reportable 03/25/16 05:56 Spherocytes Not Reportable 03/25/16 05:56 Pappenheimer Bodies Not Reportable 03/25/16 05:56 Sickle Cells Not Reportable 03/25/16 05:56 Target Cells Not Reportable 03/25/16 05:56 Tear Drop Cells Not Reportable 03/25/16 05:56 Ovalocytes Not Reportable 03/25/16 05:56 Helmet Cells Not Reportable 03/25/16 05:56 Mcgrath-[place] Bodies Not Reportable 03/25/16 05:56 [place] Rings Not Reportable 03/25/16 05:56 [place] Cells Not Reportable 03/25/16 05:56 Bite Cells Not Reportable 03/25/16 05:56 Crenated Cell Not Reportable 03/25/16 05:56 Elliptocytes Not Reportable 03/25/16 05:56 Acanthocytes (Spur) Not Reportable 03/25/16 05:56 Rouleaux Not Reportable 03/25/16 05:56 Hemoglobin C Crystals Not Reportable 03/25/16 05:56 Schistocytes Not Reportable 03/25/16 05:56 Malaria parasites Not Reportable 03/25/16 05:56 Gideon Bodies Not Reportable 03/25/16 05:56 Hem Pathologist Commnt No 03/25/16 05:56 PT 14.6 Sec. (12.2-14.9) 03/24/16 14:00 INR 1.15 (0.87-1.13) H 03/24/16 14:00 POC ABG pH 7.582 (7.35-7.45) H 04/02/16 04:17 POC ABG pCO2 26.8 (35-45) L 04/02/16 04:17 POC ABG pO2 82 (80-105) 04/02/16 04:17 POC ABG HCO3 25.2 04/02/16 04:17 POC ABG Total CO2 26 04/02/16 04:17 POC ABG O2 Sat 98 04/02/16 04:17 POC ABG Base Excess 3 04/02/16 04:17 VBG pH 7.418 (7.320-7.420) 03/24/16 14:00 FiO2 25 % 04/02/16 04:17 Sodium 146 mmol/L (137-145) H 04/02/16 05:00 Potassium 4.1 mmol/L (3.6-5.0) 04/02/16 05:00 Chloride 106.3 mmol/L (98-107) 04/02/16 05:00 Carbon Dioxide 25 mmol/L (22-30) 04/02/16 05:00 Anion Gap 19 mmol/L 04/02/16 05:00 BUN 19 mg/dL (9-20) 04/02/16 05:00 Creatinine 1.2 mg/dL (0.8-1.5) 04/02/16 05:00 Estimated GFR > 60 ml/min 04/02/16 05:00 BUN/Creatinine Ratio 15.83 % 04/02/16 05:00 Glucose 334 mg/dL (75-100) H 04/02/16 05:00 POC Glucose 282 (70-105) H 04/02/16 00:42 Hemoglobin A1c 9.6 % (4-6) H 03/24/16 14:00 Lactic Acid 2.8 mmol/L (0.7-2.1) H 03/24/16 15:26 Calcium 8.0 mg/dL (8.4-10.2) L 04/02/16 05:00 Phosphorus 2.3 mg/dL (2.5-4.5) L D 03/30/16 04:00 Magnesium 1.9 mg/dL (1.7-2.3) 03/30/16 04:00 Total Bilirubin 0.3 mg/dL (0.1-1.2) 03/24/16 14:00 AST 24 units/L (5-40) 03/24/16 14:00 ALT 38 units/L (7-56) 03/24/16 14:00 Alkaline Phosphatase 77 units/L (35-129) 03/24/16 14:00 Lactate Dehydrogenase 460 units/L (91-180) H 03/25/16 05:56 Total Creatine Kinase 356 units/L (55-170) H 03/28/16 13:29 Troponin T < 0.010 ng/mL (0.00-0.029) 03/28/16 13:29 NT-Pro-B Natriuret Pep 860.0 pg/mL (0-900) 04/02/16 05:00 Serum Total Protein 7.1 g/dL (6.1-8.1) 03/25/16 13:00 Total Protein 7.4 g/dL (6.3-8.2) 03/24/16 14:00 Albumin 3.4 g/dL (3.8-4.8) L 03/25/16 13:00 Albumin/Globulin Ratio 0.9 % 03/24/16 14:00 Vzqfg-6-Pwxljcglq 0.4 g/dL (0.2-0.3) H 03/25/16 13:00 Cpuvj-5-Ziihccpej 1.1 g/dL (0.5-0.9) H 03/25/16 13:00 Beta Globulins 0.6 g/dL (0.2-0.5) H 03/25/16 13:00 Oclb-9-Ehlaugcwkenck 2.46 mg/L (<=2.51) 03/25/16 13:00 Gamma Globulins 1.3 g/dL (0.8-1.7) 03/25/16 13:00 Abnorm Protein Band 1 see below (()) 03/25/16 13:00 PEP Interpretation see below (()) H 03/25/16 13:00 Triglycerides 88 mg/dL (2-149) 03/24/16 17:58 Cholesterol 221 mg/dL (50-199) H 03/24/16 17:58 LDL Cholesterol Direct 146 mg/dL (50-130) H 03/24/16 17:58 HDL Cholesterol 58 mg/dL (40-59) 03/24/16 17:58 Cholesterol/HDL Ratio 3.81 % 03/24/16 17:58 Urine Color Yellow (Yellow) 03/24/16 14:27 Urine Turbidity Clear (Clear) 03/24/16 14:27 Urine pH 5.0 (5.0-7.0) 03/24/16 14:27 Ur Specific Zoe 1.017 (1.003-1.030) 03/24/16 14:27 Urine Protein <15 mg/dl mg/dL (Negative) 03/24/16 14:27 Urine Glucose (UA) >=500 mg/dL (Negative) 03/24/16 14:27 Urine Ketones Neg mg/dL (Negative) 03/24/16 14:27 Urine Blood Sm (Negative) 03/24/16 14:27 Urine Nitrite Neg (Negative) 03/24/16 14:27 Urine Bilirubin Neg (Negative) 03/24/16 14:27 Urine Urobilinogen < 2.0 mg/dL (<2.0) 03/24/16 14:27 Ur Leukocyte Esterase Neg (Negative) 03/24/16 14:27 Urine WBC (Auto) 2.0 /HPF (0.0-6.0) 03/24/16 14:27 Urine RBC (Auto) < 1.0 /HPF (0.0-6.0) 03/24/16 14:27 U Epithel Cells (Auto) 4.0 /HPF (0-13.0) 03/24/16 14:27 Hyaline Casts 1 /LPF 03/24/16 14:27 Urine Mucus Few /HPF 03/24/16 14:27 Ketones 1.0 mg/dL (0.2-2.8) 03/24/16 14:00
--- NOTE | 2016-04-02 11:46 | Progress Note ---
Assessment and Plan Acute respiratory failure requiring intubation no evidence of PE by V\Q scan normal ventricular and atriua size, EF 65% on echo this admission. Acute CVA Abnormal ECG no significant CAD by [facility] 08/2015 Hx of aortic dissection s/p repair Hx of bioprosthetic aortic valve replacement Hypertension Supportive cardiac management. Subjective Date of service: 04/02/16 Interval history: Patient remains intubated. Objective Vital Signs Temp Pulse Pulse Resp BP Pulse Ox 04/02/16 11:17 73 129/85 98 04/02/16 11:04 74 19 129/85 98 04/02/16 11:00 75 9 L 129/85 95 04/02/16 10:30 74 13 140/83 95 04/02/16 10:07 76 15 126/82 98 04/02/16 10:00 79 15 126/82 97 04/02/16 09:37 81 12 169/106 98 04/02/16 09:30 86 14 169/106 98 04/02/16 09:05 83 137/90 04/02/16 09:04 83 137/90 04/02/16 09:00 83 16 137/90 97 04/02/16 08:32 83 19 162/100 100 04/02/16 08:30 84 13 162/100 97 04/02/16 08:22 85 151/97 99 04/02/16 08:00 98.4 F 84 76 8 L 151/97 98 04/02/16 07:31 85 15 135/94 99 04/02/16 07:30 86 13 135/94 97 04/02/16 07:00 83 19 160/100 04/02/16 06:30 83 14 165/104 99 04/02/16 06:00 79 13 157/95 98 04/02/16 05:30 82 13 165/105 04/02/16 05:00 77 12 166/98 96 04/02/16 04:30 78 20 164/98 98 04/02/16 04:00 98.7 F 80 87 12 150/96 98 04/02/16 03:30 77 16 163/87 98 04/02/16 03:28 77 139/90 98 04/02/16 03:00 78 14 139/90 100 04/02/16 02:30 74 14 149/85 96 04/02/16 02:09 77 16 170/100 99 04/02/16 02:00 81 20 170/100 96 04/02/16 01:30 76 18 134/79 97 04/02/16 01:07 78 15 143/88 97 04/02/16 01:00 77 12 143/88 96 04/02/16 00:30 76 16 135/80 97 04/02/16 00:00 98.1 F 74 77 12 142/83 96 04/01/16 23:34 82 178/97 97 04/01/16 23:30 88 11 L 178/97 97 04/01/16 23:07 82 19 180/99 99 04/01/16 23:05 75 180/99 04/01/16 23:00 80 13 180/99 97 04/01/16 22:30 79 15 178/96 95 04/01/16 22:00 79 11 L 158/98 96 04/01/16 21:30 81 13 168/95 96 04/01/16 21:00 82 15 171/97 98 04/01/16 20:35 77 148/87 97 04/01/16 20:30 76 16 148/87 96 04/01/16 20:00 99.1 F 83 80 15 158/91 96 04/01/16 19:30 80 13 157/92 98 04/01/16 19:00 75 16 150/86 97 04/01/16 18:30 73 15 168/95 96 04/01/16 18:21 74 15 176/97 96 04/01/16 18:01 74 14 176/97 98 04/01/16 17:50 151/86 95 04/01/16 17:30 69 12 137/95 98 04/01/16 17:27 69 18 147/91 99 04/01/16 17:00 75 17 147/91 97 04/01/16 16:30 77 15 149/91 97 04/01/16 16:00 98.8 F 73 15 151/85 04/01/16 15:30 75 13 147/87 97 04/01/16 15:17 75 13 139/84 99 04/01/16 15:01 74 12 165/95 96 04/01/16 14:30 73 17 139/84 98 04/01/16 14:00 74 12 134/89 100 04/01/16 13:50 72 140/89 97 04/01/16 13:31 71 12 134/89 96 04/01/16 13:13 72 14 131/79 100 04/01/16 13:00 70 14 131/79 98 04/01/16 12:30 75 12 124/78 96 04/01/16 12:23 74 11 L 114/68 04/01/16 12:00 99.1 F 78 13 99 - Physical Examination General: Other (VENT) Cardiac: Positive: Reg Rate and Rhythm - Labs and Meds CBC 04/02/16 Range/Units 05:00 WBC 12.4 H (4.5-11.0) K/mm3 RBC 4.60 (3.65-5.03) M/mm3 Hgb 12.0 (11.8-15.2) gm/dl Hct 37.3 (35.5-45.6) % Plt Count 256 (140-440) K/mm3 Lymph # 0.8 L (1.2-5.4) K/mm3 [place] # 1.7 H (0.0-0.8) K/mm3 Eos # 0.1 (0.0-0.4) K/mm3 Baso # 0.1 (0.0-0.1) K/mm3 Comprehensive Metabolic Panel 04/02/16 Range/Units 05:00 Sodium 146 H (137-145) mmol/L Potassium 4.1 (3.6-5.0) mmol/L Chloride 106.3 (98-107) mmol/L Carbon Dioxide 25 (22-30) mmol/L BUN 19 (9-20) mg/dL Creatinine 1.2 (0.8-1.5) mg/dL Glucose 334 H (75-100) mg/dL Calcium 8.0 L (8.4-10.2) mg/dL - Imaging and Cardiology EKG: image reviewed
[2016-04-02 13:49] LABS: ISTAT Base Excess 6; ISTAT HCO3 28.8; ISTAT PCO2 35.5 (35-45); ISTAT PH 7.518 (7.35-7.45); ISTAT PO2 87 (80-105); ISTAT SO2 98; ISTAT TCO2 30
[2016-04-02] MEDS: LEVEMIR SUB-Q SCH (14:41)
[2016-04-03] MEDS: NOVOLOG SUB-Q SCH ×4 (00:27→17:26)
[2016-04-03 04:57] LABS: Basophils % (Auto) 1.3 % (0.0-1.8); Eosinophils % (Auto) 0.5 % (0.0-4.3); Hematocrit 37.8 % (35.5-45.6); Hemoglobin 12.2 gm/dl (11.8-15.2); Mean Corpuscular HGB Conc 32 % (32-34); Mean Corpuscular Hemoglobin 26 pg (28-32); Mean Corpuscular Volume 81 fl (84-94); Platelet Count 269 K/mm3 (140-440); Red Blood Count 4.68 M/mm3 (3.65-5.03); Red Cell Distribution Width 14.5 % (13.2-15.2); White Blood Count 14.3 K/mm3 (4.5-11.0)
[2016-04-03 05:01] LABS: Blood Urea Nitrogen 21 mg/dL (9-20); Calcium 8.2 mg/dL (8.4-10.2); Carbon Dioxide 27 mmol/L (22-30); Chloride 108.1 mmol/L (98-107); Glucose 227 mg/dL (75-100); Sodium 148 mmol/L (137-145)
[2016-04-03 05:06] LABS: Anion Gap 17 mmol/L
[2016-04-03] MEDS: HEPARIN SUB-Q SCH ×3 (06:49→21:29)
[2016-04-03] MEDS: LEVEMIR SUB-Q SCH ×2 (09:04→13:07)
[2016-04-03] MEDS: ASPIRIN PO SCH (09:24)
[2016-04-03] MEDS: KEPPRA PO SCH ×2 (09:25→21:28)
[2016-04-03] MEDS: NORMODYNE PO SCH ×2 (09:25→21:28)
[2016-04-03] MEDS: PEPCID PO SCH ×2 (09:25→21:29)
[2016-04-03] MEDS: ZESTRIL PO SCH ×2 (09:25→21:28)
[2016-04-03] MEDS: CORDARONE PO SCH (09:26)
[2016-04-03] MEDS: APRESOLINE IV PRN (09:27)
--- NOTE | 2016-04-03 10:59 | Progress Note ---
Assessment and Plan Assessment and plan: 1. Acute respiratory failure. Patient extubated yesterday and tolerating nasal cannula. 2. Acute CVA. CT scan revealed acute ischemic infarct in the right cerebellum. MRI reveals subacute infarct in the right cerebellar hemisphere with associated edema and mass effect as previously described. Patient also with multiple areas of acute infarct in the left occipital and frontal lobes that are most likely embolic. ? LIZZIE. I discussed with Cardiology. Continue aspirin and statin. 3. Hypernatremia -resolved. Continue to monitor BMP. 4. Metabolic encephalopathy. Continue management as discussed above. EEG normal. 5. Group B strep UTI-continue IV ceftriaxone; wbc normal and afebrile 6. Accelerated hypertension. Continue medications of lisinopril and labetalol 7. CAD-stable, continue current beta em, statin 8. Seizures-continue Keppra. EEG normal. 9. Type 2 diabetes mellitus. Uncontrolled. Increased long acting insulin of Levemir to 25 units BID. 10. History of aortic dissection status post repair. 11. History of prosthetic aortic valve replacement. Echo with normal function on 08/2015. 12. DVT prophylaxis-Lovenox 13. GI prophylaxis-Pepcid The high probability of a clinically significant, sudden or life threatening deterioration of the [respiratory and neurological] system(s) required my full and direct attention, intervention and personal management. The aggregate critical care time was [31] minutes. This time is in addition to time spent performing reported procedures but includes the following: [x] Data Review and interpretation [x] Patient assessment and monitoring of vital signs [x] Documentation [x] Medication orders and management History Interval history: Patient is currently intubated with no new issues overnight. Hospitalist Physical - Constitutional Vitals: Temp Pulse Resp BP Pulse Ox 98.4 F 75 22 113/69 96 04/03/16 08:00 04/03/16 10:00 04/03/16 10:00 04/03/16 10:00 04/03/16 10:00 General appearance: Present: other (vented) - EENT Eyes: Present: PERRL, EOM intact ENT: hearing intact, clear oral mucosa, dentition normal - Neck Neck: Present: supple, normal ROM - Respiratory Respiratory effort: normal Respiratory: bilateral: diminished, rhonchi - Cardiovascular Rhythm: regular Heart Sounds: Present: S1 & S2. Absent: gallop, rub - Extremities Extremities: no ischemia, No edema, Full ROM - Abdominal General gastrointestinal: soft, non-tender, non-distended, normal bowel sounds - Integumentary Integumentary: Present: clear, warm, dry - Neurologic Neurologic: CNII-XII intact, moves all extremities Results - Labs CBC & Chem 7: 04/03/16 04:10 04/03/16 04:10 Labs: Laboratory Last Values WBC 14.3 K/mm3 (4.5-11.0) H 04/03/16 04:10 RBC 4.68 M/mm3 (3.65-5.03) 04/03/16 04:10 Hgb 12.2 gm/dl (11.8-15.2) 04/03/16 04:10 Hct 37.8 % (35.5-45.6) 04/03/16 04:10 MCV 81 fl (84-94) L 04/03/16 04:10 MCH 26 pg (28-32) L 04/03/16 04:10 MCHC 32 % (32-34) 04/03/16 04:10 RDW 14.5 % (13.2-15.2) 04/03/16 04:10 Plt Count 269 K/mm3 (140-440) 04/03/16 04:10 Lymph % (Auto) 9.0 % (13.4-35.0) L 04/03/16 04:10 [place] % (Auto) 10.7 % (0.0-7.3) H 04/03/16 04:10 Eos % (Auto) 0.5 % (0.0-4.3) 04/03/16 04:10 Baso % (Auto) 1.3 % (0.0-1.8) 04/03/16 04:10 Lymph # 1.3 K/mm3 (1.2-5.4) 04/03/16 04:10 [place] # 1.5 K/mm3 (0.0-0.8) H 04/03/16 04:10 Eos # 0.1 K/mm3 (0.0-0.4) 04/03/16 04:10 Baso # 0.2 K/mm3 (0.0-0.1) H 04/03/16 04:10 Add Manual Diff Complete 03/25/16 05:56 Total Counted 100 03/25/16 05:56 Seg Neutrophils % 78.5 % (40.0-70.0) H 04/03/16 04:10 Seg Neuts % (Manual) 91.0 % (40.0-70.0) H 03/25/16 05:56 Band Neutrophils % 1.0 % 03/25/16 05:56 Lymphocytes % (Manual) 4.0 % (13.4-35.0) L 03/25/16 05:56 Reactive Lymphs % (Man) 0 % 03/25/16 05:56 Monocytes % (Manual) 4.0 % (0.0-7.3) 03/25/16 05:56 Eosinophils % (Manual) 0 % (0.0-4.3) 03/25/16 05:56 Basophils % (Manual) 0 % (0.0-1.8) 03/25/16 05:56 Metamyelocytes % 0 % 03/25/16 05:56 Myelocytes % 0 % 03/25/16 05:56 Promyelocytes % 0 % 03/25/16 05:56 Blast Cells % 0 % 03/25/16 05:56 Nucleated RBC % Not Reportable 03/25/16 05:56 Seg Neutrophils # 11.3 K/mm3 (1.8-7.7) H 04/03/16 04:10 Seg Neutrophils # Man 19.4 K/mm3 (1.8-7.7) H 03/25/16 05:56 Band Neutrophils # 0.2 K/mm3 03/25/16 05:56 Lymphocytes # (Manual) 0.9 K/mm3 (1.2-5.4) L 03/25/16 05:56 Abs React Lymphs (Man) 0.0 K/mm3 03/25/16 05:56 Monocytes # (Manual) 0.9 K/mm3 (0.0-0.8) H 03/25/16 05:56 Eosinophils # (Manual) 0.0 K/mm3 (0.0-0.4) 03/25/16 05:56 Basophils # (Manual) 0.0 K/mm3 (0.0-0.1) 03/25/16 05:56 Metamyelocytes # 0.0 K/mm3 03/25/16 05:56 Myelocytes # 0.0 K/mm3 03/25/16 05:56 Promyelocytes # 0.0 K/mm3 03/25/16 05:56 Blast Cells # 0.0 K/mm3 03/25/16 05:56 WBC Morphology Not Reportable 03/25/16 05:56 Hypersegmented Neuts Not Reportable 03/25/16 05:56 Hyposegmented Neuts Not Reportable 03/25/16 05:56 Hypogranular Neuts Not Reportable 03/25/16 05:56 Smudge Cells Not Reportable 03/25/16 05:56 Toxic Granulation Not Reportable 03/25/16 05:56 Toxic Vacuolation Not Reportable 03/25/16 05:56 Dohle Bodies Not Reportable 03/25/16 05:56 Pelger-Huet Anomaly Not Reportable 03/25/16 05:56 Corina Rods Not Reportable 03/25/16 05:56 Platelet Estimate Appears normal 03/25/16 05:56 Clumped Platelets Not Reportable 03/25/16 05:56 Plt Clumps, EDTA Not Reportable 03/25/16 05:56 Large Platelets Not Reportable 03/25/16 05:56 Giant Platelets Not Reportable 03/25/16 05:56 Platelet Satelliting Not Reportable 03/25/16 05:56 Plt Morphology Comment Not Reportable 03/25/16 05:56 RBC Morphology Normal 03/25/16 05:56 Dimorphic RBCs Not Reportable 03/25/16 05:56 Polychromasia Not Reportable 03/25/16 05:56 Hypochromasia Not Reportable 03/25/16 05:56 Poikilocytosis Not Reportable 03/25/16 05:56 Anisocytosis Not Reportable 03/25/16 05:56 Microcytosis Not Reportable 03/25/16 05:56 Macrocytosis Not Reportable 03/25/16 05:56 Spherocytes Not Reportable 03/25/16 05:56 Pappenheimer Bodies Not Reportable 03/25/16 05:56 Sickle Cells Not Reportable 03/25/16 05:56 Target Cells Not Reportable 03/25/16 05:56 Tear Drop Cells Not Reportable 03/25/16 05:56 Ovalocytes Not Reportable 03/25/16 05:56 Helmet Cells Not Reportable 03/25/16 05:56 Mcgrath-[place] Bodies Not Reportable 03/25/16 05:56 [place] Rings Not Reportable 03/25/16 05:56 [place] Cells Not Reportable 03/25/16 05:56 Bite Cells Not Reportable 03/25/16 05:56 Crenated Cell Not Reportable 03/25/16 05:56 Elliptocytes Not Reportable 03/25/16 05:56 Acanthocytes (Spur) Not Reportable 03/25/16 05:56 Rouleaux Not Reportable 03/25/16 05:56 Hemoglobin C Crystals Not Reportable 03/25/16 05:56 Schistocytes Not Reportable 03/25/16 05:56 Malaria parasites Not Reportable 03/25/16 05:56 [place] Bodies Not Reportable 03/25/16 05:56 Hem Pathologist Commnt No 03/25/16 05:56 PT 14.6 Sec. (12.2-14.9) 03/24/16 14:00 INR 1.15 (0.87-1.13) H 03/24/16 14:00 POC ABG pH 7.518 (7.35-7.45) H 04/02/16 13:10 POC ABG pCO2 35.5 (35-45) 04/02/16 13:10 POC ABG pO2 87 (80-105) 04/02/16 13:10 POC ABG HCO3 28.8 04/02/16 13:10 POC ABG Total CO2 30 04/02/16 13:10 POC ABG O2 Sat 98 04/02/16 13:10 POC ABG Base Excess 6 04/02/16 13:10 VBG pH 7.418 (7.320-7.420) 03/24/16 14:00 FiO2 25 % 04/02/16 13:10 Sodium 148 mmol/L (137-145) H 04/03/16 04:10 Potassium 4.0 mmol/L (3.6-5.0) 04/03/16 04:10 Chloride 108.1 mmol/L (98-107) H 04/03/16 04:10 Carbon Dioxide 27 mmol/L (22-30) 04/03/16 04:10 Anion Gap 17 mmol/L 04/03/16 04:10 BUN 21 mg/dL (9-20) H 04/03/16 04:10 Creatinine 1.2 mg/dL (0.8-1.5) 04/03/16 04:10 Estimated GFR > 60 ml/min 04/03/16 04:10 BUN/Creatinine Ratio 17.50 % 04/03/16 04:10 Glucose 227 mg/dL (75-100) H 04/03/16 04:10 POC Glucose 144 (70-105) H 04/03/16 00:18 Hemoglobin A1c 9.6 % (4-6) H 03/24/16 14:00 Lactic Acid 2.8 mmol/L (0.7-2.1) H 03/24/16 15:26 Calcium 8.2 mg/dL (8.4-10.2) L 04/03/16 04:10 Phosphorus 2.3 mg/dL (2.5-4.5) L D 03/30/16 04:00 Magnesium 1.9 mg/dL (1.7-2.3) 03/30/16 04:00 Total Bilirubin 0.3 mg/dL (0.1-1.2) 03/24/16 14:00 AST 24 units/L (5-40) 03/24/16 14:00 ALT 38 units/L (7-56) 03/24/16 14:00 Alkaline Phosphatase 77 units/L (35-129) 03/24/16 14:00 Lactate Dehydrogenase 460 units/L (91-180) H 03/25/16 05:56 Total Creatine Kinase 356 units/L (55-170) H 03/28/16 13:29 Troponin T < 0.010 ng/mL (0.00-0.029) 03/28/16 13:29 NT-Pro-B Natriuret Pep 897.9 pg/mL (0-900) 04/03/16 04:10 Serum Total Protein 7.1 g/dL (6.1-8.1) 03/25/16 13:00 Total Protein 7.4 g/dL (6.3-8.2) 03/24/16 14:00 Albumin 3.4 g/dL (3.8-4.8) L 03/25/16 13:00 Albumin/Globulin Ratio 0.9 % 03/24/16 14:00 Unlhy-4-Cmkmcdcpz 0.4 g/dL (0.2-0.3) H 03/25/16 13:00 Eqore-6-Fandviode 1.1 g/dL (0.5-0.9) H 03/25/16 13:00 Beta Globulins 0.6 g/dL (0.2-0.5) H 03/25/16 13:00 Qqmu-4-Xwljqcvhhrupp 2.46 mg/L (<=2.51) 03/25/16 13:00 Gamma Globulins 1.3 g/dL (0.8-1.7) 03/25/16 13:00 Abnorm Protein Band 1 see below (()) 03/25/16 13:00 PEP Interpretation see below (()) H 03/25/16 13:00 Triglycerides 88 mg/dL (2-149) 03/24/16 17:58 Cholesterol 221 mg/dL (50-199) H 03/24/16 17:58 LDL Cholesterol Direct 146 mg/dL (50-130) H 03/24/16 17:58 HDL Cholesterol 58 mg/dL (40-59) 03/24/16 17:58 Cholesterol/HDL Ratio 3.81 % 03/24/16 17:58 Urine Color Yellow (Yellow) 03/24/16 14:27 Urine Turbidity Clear (Clear) 03/24/16 14:27 Urine pH 5.0 (5.0-7.0) 03/24/16 14:27 Ur Specific [place] 1.017 (1.003-1.030) 03/24/16 14:27 Urine Protein <15 mg/dl mg/dL (Negative) 03/24/16 14:27 Urine Glucose (UA) >=500 mg/dL (Negative) 03/24/16 14:27 Urine Ketones Neg mg/dL (Negative) 03/24/16 14:27 Urine Blood Sm (Negative) 03/24/16 14:27 Urine Nitrite Neg (Negative) 03/24/16 14:27 Urine Bilirubin Neg (Negative) 03/24/16 14:27 Urine Urobilinogen < 2.0 mg/dL (<2.0) 03/24/16 14:27 Ur Leukocyte Esterase Neg (Negative) 03/24/16 14:27 Urine WBC (Auto) 2.0 /HPF (0.0-6.0) 03/24/16 14:27 Urine RBC (Auto) < 1.0 /HPF (0.0-6.0) 03/24/16 14:27 U Epithel Cells (Auto) 4.0 /HPF (0-13.0) 03/24/16 14:27 Hyaline Casts 1 /LPF 03/24/16 14:27 Urine Mucus Few /HPF 03/24/16 14:27 Ketones 1.0 mg/dL (0.2-2.8) 03/24/16 14:00
--- NOTE | 2016-04-03 11:05 | XRay Report ---
AP CHEST : 04/03/16 CLINICAL: Followup respiratory failure. COMPARISON:04/02/16 FINDINGS: Stable cardiomegaly. Aortic tortuosity. Normal pulmonary vessels. An endotracheal tube is not imaged. The lungs are normally expanded and clear. Median sternotomy wires and a prosthetic aortic valve.The feeding tube is satisfactory. IMPRESSION: No change. Stable cardiomegaly with CHF.
--- NOTE | 2016-04-03 14:57 | Progress Note ---
Assessment and Plan - Patient Problems (1) Acute renal failure Current Visit: Yes Status: Acute (2) Acute respiratory failure Current Visit: Yes Status: Acute (3) Altered mental status Current Visit: Yes Status: Acute Qualifiers: Altered mental status type: unspecified Qualified Code(s): R41.82 - Altered mental status, unspecified (4) CAD (coronary artery disease) Current Visit: Yes Status: Acute (5) Diabetes Current Visit: Yes Status: Acute (6) Encephalopathy Current Visit: Yes Status: Acute (7) Acute ST elevation myocardial infarction (STEMI) Current Visit: No Status: Acute Qualifiers: Involved coronary artery: LAD coronary artery Qualified Code(s): I21.02 - ST elevation (STEMI) myocardial infarction involving left anterior descending coronary artery Subjective Interval history: awake and responsive Objective Vital Signs - 12hr 04/03/16 04/03/16 04/03/16 03:00 03:31 04:00 Temperature 100 F H Pulse Rate 80 78 78 Pulse Rate [ 85 From Monitor] Respiratory 18 18 19 Rate Respiratory Rate [ Generalized] Blood Pressure 144/93 144/93 153/92 O2 Sat by Pulse 96 98 99 Oximetry 04/03/16 04/03/16 04/03/16 04:31 05:00 05:27 Temperature Pulse Rate 72 73 73 Pulse Rate [ From Monitor] Respiratory 16 24 21 Rate Respiratory Rate [ Generalized] Blood Pressure 153/92 155/85 155/85 O2 Sat by Pulse 98 97 98 Oximetry 04/03/16 04/03/16 04/03/16 05:31 06:00 06:31 Temperature Pulse Rate 75 84 81 Pulse Rate [ From Monitor] Respiratory 17 24 21 Rate Respiratory Rate [ Generalized] Blood Pressure 155/85 165/103 165/103 O2 Sat by Pulse 99 96 98 Oximetry 04/03/16 04/03/16 04/03/16 06:39 07:00 07:31 Temperature Pulse Rate 82 83 83 Pulse Rate [ From Monitor] Respiratory 22 21 21 Rate Respiratory Rate [ Generalized] Blood Pressure 165/103 138/88 138/88 O2 Sat by Pulse 97 95 98 Oximetry 04/03/16 04/03/16 04/03/16 08:00 08:01 08:31 Temperature 98.4 F Pulse Rate 84 86 Pulse Rate [ 78 From Monitor] Respiratory 21 22 19 Rate Respiratory Rate [ Generalized] Blood Pressure 115/80 115/80 O2 Sat by Pulse 97 97 99 Oximetry 04/03/16 04/03/16 04/03/16 08:55 08:59 09:00 Temperature Pulse Rate 80 81 Pulse Rate [ From Monitor] Respiratory 22 17 Rate Respiratory Rate [ Generalized] Blood Pressure 115/80 172/97 O2 Sat by Pulse 98 99 94 Oximetry 04/03/16 04/03/16 04/03/16 09:25 09:27 09:29 Temperature Pulse Rate 78 76 74 Pulse Rate [ From Monitor] Respiratory 22 Rate Respiratory Rate [ Generalized] Blood Pressure 172/97 172/97 172/97 O2 Sat by Pulse 98 Oximetry 04/03/16 04/03/16 04/03/16 09:31 09:50 10:00 Temperature Pulse Rate 75 77 75 Pulse Rate [ From Monitor] Respiratory 22 20 21 Rate Respiratory 22 Rate [ Generalized] Blood Pressure 172/97 121/79 113/69 O2 Sat by Pulse 98 97 96 Oximetry 04/03/16 04/03/16 04/03/16 10:21 10:31 11:00 Temperature Pulse Rate 78 76 79 Pulse Rate [ From Monitor] Respiratory 22 20 21 Rate Respiratory Rate [ Generalized] Blood Pressure 113/69 113/69 111/69 O2 Sat by Pulse 98 97 96 Oximetry 04/03/16 04/03/16 04/03/16 11:31 11:57 12:00 Temperature 98.4 F Pulse Rate 80 77 Pulse Rate [ From Monitor] Respiratory 22 21 Rate Respiratory Rate [ Generalized] Blood Pressure 111/69 104/59 O2 Sat by Pulse 100 98 Oximetry 04/03/16 04/03/16 04/03/16 12:31 12:59 13:00 Temperature Pulse Rate 78 84 83 Pulse Rate [ From Monitor] Respiratory 20 17 23 Rate Respiratory Rate [ Generalized] Blood Pressure 104/59 104/59 142/75 O2 Sat by Pulse 99 98 Oximetry Constitutional: no acute distress, asleep, other (follow commands) Eyes: non-icteric ENT: other (orally intubated and sedated) Neck: supple Effort: normal Ascultation: Bilateral: clear, rhonchi (occasional) Percussion: Bilateral: not dull Cardiovascular: regular rate and rhythm, irregular rhythm Gastrointestinal: normoactive bowel sounds, soft, non-tender Neurologic: other (RASS 0 ) CBC and BMP: 04/03/16 04:10 04/03/16 04:10 ABG, PT/INR, D-dimer: ABG POC ABG pH 7.518 (7.35-7.45) H 04/02/16 13:10 POC ABG pCO2 35.5 (35-45) 04/02/16 13:10 POC ABG pO2 87 (80-105) 04/02/16 13:10 POC ABG HCO3 28.8 04/02/16 13:10 POC ABG Total CO2 30 04/02/16 13:10 POC ABG O2 Sat 98 04/02/16 13:10 PT/INR, D-dimer PT 14.6 Sec. (12.2-14.9) 03/24/16 14:00 INR 1.15 (0.87-1.13) H 03/24/16 14:00 Abnormal lab findings: Abnormal Labs 03/24/16 03/24/16 03/24/16 17:58 20:25 23:23 WBC RBC Hgb Hct MCV MCH MCHC Plt Count Lymph % (Auto) [place] % (Auto) Lymph # [place] # Baso # Seg Neutrophils % Seg Neuts % (Manual) Lymphocytes % (Manual) Seg Neutrophils # Seg Neutrophils # Man Lymphocytes # (Manual) Monocytes # (Manual) POC ABG pH POC ABG pCO2 POC ABG pO2 Sodium 169 H* Potassium 3.5 L Chloride 130.3 H Carbon Dioxide BUN 28 H Creatinine 1.8 H Glucose POC Glucose 112 H Calcium Phosphorus Lactate Dehydrogenase Total Creatine Kinase NT-Pro-B Natriuret Pep Albumin Wqdgu-3-Jacdtdshh Xecxq-7-Nsgysohnr Beta Globulins PEP Interpretation Cholesterol 221 H LDL Cholesterol Direct 146 H 03/25/16 03/25/16 03/25/16 05:56 05:56 05:56 WBC 21.3 H RBC 6.32 H Hgb 16.7 H Hct 52.7 H MCV 83 L MCH 27 L MCHC Plt Count Lymph % (Auto) [place] % (Auto) Lymph # [place] # Baso # Seg Neutrophils % Seg Neuts % (Manual) 91.0 H Lymphocytes % (Manual) 4.0 L Seg Neutrophils # Seg Neutrophils # Man 19.4 H Lymphocytes # (Manual) 0.9 L Monocytes # (Manual) 0.9 H POC ABG pH POC ABG pCO2 POC ABG pO2 Sodium 172 H* Potassium 3.5 L Chloride 130.4 H Carbon Dioxide BUN 29 H Creatinine 1.8 H Glucose 187 H POC Glucose Calcium Phosphorus Lactate Dehydrogenase 460 H Total Creatine Kinase NT-Pro-B Natriuret Pep Albumin Oolpp-6-Dyzmzembe Tmhub-6-Huxpohcjv Beta Globulins PEP Interpretation Cholesterol LDL Cholesterol Direct 03/25/16 03/25/16 03/25/16 07:55 12:19 13:00 WBC RBC Hgb Hct MCV MCH MCHC Plt Count Lymph % (Auto) [place] % (Auto) Lymph # [place] # Baso # Seg Neutrophils % Seg Neuts % (Manual) Lymphocytes % (Manual) Seg Neutrophils # Seg Neutrophils # Man Lymphocytes # (Manual) Monocytes # (Manual) POC ABG pH POC ABG pCO2 POC ABG pO2 Sodium Potassium Chloride Carbon Dioxide BUN Creatinine Glucose POC Glucose 231 H 314 H Calcium Phosphorus Lactate Dehydrogenase Total Creatine Kinase NT-Pro-B Natriuret Pep Albumin 3.4 L Ofpvy-8-Huyvfstra 0.4 H Djmqa-8-Clhnvndky 1.1 H Beta Globulins 0.6 H PEP Interpretation see below H Cholesterol LDL Cholesterol Direct 03/25/16 03/25/16 03/26/16 16:41 22:45 08:32 WBC RBC Hgb Hct MCV MCH MCHC Plt Count Lymph % (Auto) [place] % (Auto) Lymph # [place] # Baso # Seg Neutrophils % Seg Neuts % (Manual) Lymphocytes % (Manual) Seg Neutrophils # Seg Neutrophils # Man Lymphocytes # (Manual) Monocytes # (Manual) POC ABG pH POC ABG pCO2 POC ABG pO2 Sodium Potassium Chloride Carbon Dioxide BUN Creatinine Glucose POC Glucose 444 H 326 H 360 H Calcium Phosphorus Lactate Dehydrogenase Total Creatine Kinase NT-Pro-B Natriuret Pep Albumin Xpwag-6-Yzpmvjntw Udkva-7-Dcqfkmrht Beta Globulins PEP Interpretation Cholesterol LDL Cholesterol Direct 03/26/16 03/26/16 03/26/16 12:38 15:33 15:47 WBC RBC Hgb Hct MCV MCH MCHC Plt Count Lymph % (Auto) [place] % (Auto) Lymph # [place] # Baso # Seg Neutrophils % Seg Neuts % (Manual) Lymphocytes % (Manual) Seg Neutrophils # Seg Neutrophils # Man Lymphocytes # (Manual) Monocytes # (Manual) POC ABG pH 7.511 H POC ABG pCO2 26.5 L POC ABG pO2 70 L Sodium Potassium Chloride Carbon Dioxide BUN Creatinine Glucose POC Glucose 280 H 174 H Calcium Phosphorus Lactate Dehydrogenase Total Creatine Kinase NT-Pro-B Natriuret Pep Albumin Qbaca-7-Bzukiyabn Zlifb-4-Jugqotwmg Beta Globulins PEP Interpretation Cholesterol LDL Cholesterol Direct 03/26/16 03/26/16 03/26/16 16:47 16:47 18:51 WBC 14.0 H RBC 5.17 H Hgb Hct MCV MCH 26 L MCHC 31 L Plt Count 139 L Lymph % (Auto) [place] % (Auto) Lymph # [place] # Baso # Seg Neutrophils % Seg Neuts % (Manual) Lymphocytes % (Manual) Seg Neutrophils # Seg Neutrophils # Man Lymphocytes # (Manual) Monocytes # (Manual) POC ABG pH POC ABG pCO2 33.9 L POC ABG pO2 150 H Sodium 164 H* Potassium 3.4 L Chloride 128.5 H Carbon Dioxide BUN 30 H Creatinine 2.2 H Glucose 121 H POC Glucose Calcium 8.1 L Phosphorus Lactate Dehydrogenase Total Creatine Kinase NT-Pro-B Natriuret Pep Albumin Uvapa-4-Ljlqevkuj Hvccb-2-Bagnvqfyl Beta Globulins PEP Interpretation Cholesterol LDL Cholesterol Direct 03/27/16 03/27/16 03/27/16 02:19 05:47 06:02 WBC RBC Hgb Hct MCV MCH MCHC Plt Count Lymph % (Auto) [place] % (Auto) Lymph # [place] # Baso # Seg Neutrophils % Seg Neuts % (Manual) Lymphocytes % (Manual) Seg Neutrophils # Seg Neutrophils # Man Lymphocytes # (Manual) Monocytes # (Manual) POC ABG pH POC ABG pCO2 27.3 L 30.3 L POC ABG pO2 50 L 112 H Sodium 158 H Potassium Chloride 126.7 H Carbon Dioxide 20 L BUN 25 H Creatinine 1.7 H Glucose POC Glucose Calcium 7.0 L Phosphorus Lactate Dehydrogenase Total Creatine Kinase NT-Pro-B Natriuret Pep Albumin Punjz-6-Hcntdxcrl Uldhl-1-Piizhakgl Beta Globulins PEP Interpretation Cholesterol LDL Cholesterol Direct 03/27/16 03/27/16 03/27/16 07:51 09:20 11:45 WBC 14.2 H RBC Hgb Hct MCV 83 L MCH 27 L MCHC Plt Count 113 L Lymph % (Auto) [place] % (Auto) Lymph # [place] # Baso # Seg Neutrophils % Seg Neuts % (Manual) Lymphocytes % (Manual) Seg Neutrophils # Seg Neutrophils # Man Lymphocytes # (Manual) Monocytes # (Manual) POC ABG pH POC ABG pCO2 POC ABG pO2 Sodium Potassium Chloride Carbon Dioxide BUN Creatinine Glucose POC Glucose 124 H 241 H Calcium Phosphorus Lactate Dehydrogenase Total Creatine Kinase NT-Pro-B Natriuret Pep Albumin Msvhx-2-Wirqjfiax Tpvpy-4-Qehfpvtns Beta Globulins PEP Interpretation Cholesterol LDL Cholesterol Direct 03/27/16 03/27/16 03/28/16 16:39 22:03 03:29 WBC RBC Hgb Hct MCV MCH MCHC Plt Count Lymph % (Auto) [place] % (Auto) Lymph # [place] # Baso # Seg Neutrophils % Seg Neuts % (Manual) Lymphocytes % (Manual) Seg Neutrophils # Seg Neutrophils # Man Lymphocytes # (Manual) Monocytes # (Manual) POC ABG pH POC ABG pCO2 POC ABG pO2 Sodium Potassium Chloride Carbon Dioxide BUN Creatinine Glucose POC Glucose 266 H 167 H 241 H Calcium Phosphorus Lactate Dehydrogenase Total Creatine Kinase NT-Pro-B Natriuret Pep Albumin Wcnlm-1-Ajdzwlbfx Xfjep-9-Wtsjnyagn Beta Globulins PEP Interpretation Cholesterol LDL Cholesterol Direct 03/28/16 03/28/16 03/28/16 05:00 05:00 05:00 WBC RBC Hgb Hct MCV 83 L MCH 27 L MCHC Plt Count 106 L Lymph % (Auto) [place] % (Auto) 10.1 H Lymph # [place] # 1.0 H Baso # Seg Neutrophils % 75.1 H Seg Neuts % (Manual) Lymphocytes % (Manual) Seg Neutrophils # Seg Neutrophils # Man Lymphocytes # (Manual) Monocytes # (Manual) POC ABG pH POC ABG pCO2 POC ABG pO2 Sodium 147 H D Potassium 3.1 L D Chloride 112.3 H Carbon Dioxide 21 L BUN Creatinine Glucose 208 H POC Glucose Calcium 7.0 L Phosphorus 2.2 L Lactate Dehydrogenase Total Creatine Kinase NT-Pro-B Natriuret Pep Albumin Mxitx-1-Hflxsgpmk Jiknh-5-Tpdfmfiej Beta Globulins PEP Interpretation Cholesterol LDL Cholesterol Direct 03/28/16 03/28/16 03/28/16 05:14 08:41 10:56 WBC RBC Hgb Hct MCV MCH MCHC Plt Count Lymph % (Auto) [place] % (Auto) Lymph # [place] # Baso # Seg Neutrophils % Seg Neuts % (Manual) Lymphocytes % (Manual) Seg Neutrophils # Seg Neutrophils # Man Lymphocytes # (Manual) Monocytes # (Manual) POC ABG pH 7.457 H POC ABG pCO2 29.7 L 27.7 L POC ABG pO2 Sodium Potassium Chloride Carbon Dioxide BUN Creatinine Glucose POC Glucose 228 H Calcium Phosphorus Lactate Dehydrogenase Total Creatine Kinase NT-Pro-B Natriuret Pep Albumin Vachb-3-Oqmuzedxc Wfwdl-3-Tyimprdkt Beta Globulins PEP Interpretation Cholesterol LDL Cholesterol Direct 03/28/16 03/28/16 03/28/16 11:37 13:29 16:22 WBC RBC Hgb Hct MCV MCH MCHC Plt Count Lymph % (Auto) [place] % (Auto) Lymph # [place] # Baso # Seg Neutrophils % Seg Neuts % (Manual) Lymphocytes % (Manual) Seg Neutrophils # Seg Neutrophils # Man Lymphocytes # (Manual) Monocytes # (Manual) POC ABG pH POC ABG pCO2 POC ABG pO2 Sodium Potassium Chloride Carbon Dioxide BUN Creatinine Glucose POC Glucose 226 H 200 H Calcium Phosphorus Lactate Dehydrogenase Total Creatine Kinase 356 H NT-Pro-B Natriuret Pep Albumin Xxnqw-4-Gxzzmdkwr Gxncp-5-Nuboepttm Beta Globulins PEP Interpretation Cholesterol LDL Cholesterol Direct 03/28/16 03/29/16 03/29/16 21:48 04:50 04:50 WBC RBC Hgb 11.5 L Hct 35.3 L MCV 81 L MCH 26 L MCHC Plt Count 97 L Lymph % (Auto) [place] % (Auto) 11.7 H Lymph # [place] # 1.1 H Baso # Seg Neutrophils % Seg Neuts % (Manual) Lymphocytes % (Manual) Seg Neutrophils # Seg Neutrophils # Man Lymphocytes # (Manual) Monocytes # (Manual) POC ABG pH POC ABG pCO2 POC ABG pO2 Sodium 136 L D Potassium 3.3 L Chloride Carbon Dioxide 20 L BUN Creatinine Glucose 386 H POC Glucose 188 H Calcium 6.8 L Phosphorus 1.6 L D Lactate Dehydrogenase Total Creatine Kinase NT-Pro-B Natriuret Pep Albumin Iqmba-8-Kpmcwlilr Iqkmg-0-Cpoxbuykf Beta Globulins PEP Interpretation Cholesterol LDL Cholesterol Direct 03/29/16 03/29/16 03/29/16 08:10 11:12 16:09 WBC RBC Hgb Hct MCV MCH MCHC Plt Count Lymph % (Auto) [place] % (Auto) Lymph # [place] # Baso # Seg Neutrophils % Seg Neuts % (Manual) Lymphocytes % (Manual) Seg Neutrophils # Seg Neutrophils # Man Lymphocytes # (Manual) Monocytes # (Manual) POC ABG pH POC ABG pCO2 POC ABG pO2 Sodium Potassium Chloride Carbon Dioxide BUN Creatinine Glucose POC Glucose 230 H 180 H 46 L Calcium Phosphorus Lactate Dehydrogenase Total Creatine Kinase NT-Pro-B Natriuret Pep Albumin Yeyzq-8-Fnzkfoswd Zrccw-9-Iiadoddgx Beta Globulins PEP Interpretation Cholesterol LDL Cholesterol Direct 03/29/16 03/29/16 03/30/16 16:12 18:15 02:53 WBC RBC Hgb Hct MCV MCH MCHC Plt Count Lymph % (Auto) [place] % (Auto) Lymph # [place] # Baso # Seg Neutrophils % Seg Neuts % (Manual) Lymphocytes % (Manual) Seg Neutrophils # Seg Neutrophils # Man Lymphocytes # (Manual) Monocytes # (Manual) POC ABG pH POC ABG pCO2 POC ABG pO2 Sodium Potassium Chloride Carbon Dioxide BUN Creatinine Glucose POC Glucose 52 L 118 H 130 H Calcium Phosphorus Lactate Dehydrogenase Total Creatine Kinase NT-Pro-B Natriuret Pep Albumin Skgwv-8-Zizmuvntt Rilap-8-Yrqagwocb Beta Globulins PEP Interpretation Cholesterol LDL Cholesterol Direct 03/30/16 03/30/16 03/30/16 04:00 04:00 05:29 WBC RBC Hgb Hct MCV 81 L MCH 26 L MCHC Plt Count 116 L Lymph % (Auto) 10.8 L [place] % (Auto) 13.1 H Lymph # 1.0 L [place] # 1.3 H Baso # Seg Neutrophils % 74.2 H Seg Neuts % (Manual) Lymphocytes % (Manual) Seg Neutrophils # Seg Neutrophils # Man Lymphocytes # (Manual) Monocytes # (Manual) POC ABG pH 7.522 H POC ABG pCO2 22.7 L POC ABG pO2 137 H Sodium 147 H D Potassium Chloride 115.5 H Carbon Dioxide 20 L BUN Creatinine Glucose 116 H POC Glucose Calcium 7.6 L Phosphorus 2.3 L D Lactate Dehydrogenase Total Creatine Kinase NT-Pro-B Natriuret Pep Albumin Ikdrg-3-Fwmuiofdk Iukxh-2-Zyekhooew Beta Globulins PEP Interpretation Cholesterol LDL Cholesterol Direct 03/30/16 03/30/16 03/30/16 05:47 08:05 08:59 WBC RBC Hgb Hct MCV MCH MCHC Plt Count Lymph % (Auto) [place] % (Auto) Lymph # [place] # Baso # Seg Neutrophils % Seg Neuts % (Manual) Lymphocytes % (Manual) Seg Neutrophils # Seg Neutrophils # Man Lymphocytes # (Manual) Monocytes # (Manual) POC ABG pH POC ABG pCO2 26.2 L POC ABG pO2 115 H Sodium Potassium Chloride Carbon Dioxide BUN Creatinine Glucose POC Glucose 138 H 171 H Calcium Phosphorus Lactate Dehydrogenase Total Creatine Kinase NT-Pro-B Natriuret Pep Albumin Fjsgs-1-Hqlnwnzpm Nhkgh-6-Libtgmmyi Beta Globulins PEP Interpretation Cholesterol LDL Cholesterol Direct 03/30/16 03/30/16 03/30/16 12:11 12:11 16:39 WBC RBC Hgb Hct MCV MCH MCHC Plt Count Lymph % (Auto) [place] % (Auto) Lymph # [place] # Baso # Seg Neutrophils % Seg Neuts % (Manual) Lymphocytes % (Manual) Seg Neutrophils # Seg Neutrophils # Man Lymphocytes # (Manual) Monocytes # (Manual) POC ABG pH 7.476 H POC ABG pCO2 29.0 L POC ABG pO2 Sodium Potassium Chloride Carbon Dioxide BUN Creatinine Glucose POC Glucose 142 H 59 L Calcium Phosphorus Lactate Dehydrogenase Total Creatine Kinase NT-Pro-B Natriuret Pep Albumin Msrdx-6-Mnqnhtgff Dcrkt-4-Uffwfryvw Beta Globulins PEP Interpretation Cholesterol LDL Cholesterol Direct 03/30/16 03/30/16 03/31/16 18:41 21:59 05:02 WBC RBC Hgb Hct MCV MCH MCHC Plt Count Lymph % (Auto) [place] % (Auto) Lymph # [place] # Baso # Seg Neutrophils % Seg Neuts % (Manual) Lymphocytes % (Manual) Seg Neutrophils # Seg Neutrophils # Man Lymphocytes # (Manual) Monocytes # (Manual) POC ABG pH 7.519 H POC ABG pCO2 21.8 L POC ABG pO2 142 H Sodium Potassium Chloride Carbon Dioxide BUN Creatinine Glucose POC Glucose 145 H 154 H Calcium Phosphorus Lactate Dehydrogenase Total Creatine Kinase NT-Pro-B Natriuret Pep Albumin Kvohc-3-Heffqcxhs Yatac-9-Antmbjtds Beta Globulins PEP Interpretation Cholesterol LDL Cholesterol Direct 03/31/16 03/31/16 03/31/16 05:15 05:15 05:15 WBC 13.4 H RBC 5.21 H Hgb Hct MCV 81 L MCH 26 L MCHC Plt Count Lymph % (Auto) 9.5 L [place] % (Auto) 14.0 H Lymph # [place] # 1.9 H Baso # Seg Neutrophils % 75.0 H Seg Neuts % (Manual) Lymphocytes % (Manual) Seg Neutrophils # 10.1 H Seg Neutrophils # Man Lymphocytes # (Manual) Monocytes # (Manual) POC ABG pH POC ABG pCO2 POC ABG pO2 Sodium Potassium Chloride 108.5 H Carbon Dioxide 19 L BUN Creatinine Glucose 188 H POC Glucose Calcium Phosphorus Lactate Dehydrogenase Total Creatine Kinase NT-Pro-B Natriuret Pep 1089 H Albumin Fsrru-5-Uagxeztup Vnaen-8-Htqbxcpct Beta Globulins PEP Interpretation Cholesterol LDL Cholesterol Direct 03/31/16 03/31/16 03/31/16 07:23 11:12 15:20 WBC RBC Hgb Hct MCV MCH MCHC Plt Count Lymph % (Auto) [place] % (Auto) Lymph # [place] # Baso # Seg Neutrophils % Seg Neuts % (Manual) Lymphocytes % (Manual) Seg Neutrophils # Seg Neutrophils # Man Lymphocytes # (Manual) Monocytes # (Manual) POC ABG pH POC ABG pCO2 POC ABG pO2 Sodium Potassium Chloride Carbon Dioxide BUN Creatinine Glucose POC Glucose 233 H 228 H 208 H Calcium Phosphorus Lactate Dehydrogenase Total Creatine Kinase NT-Pro-B Natriuret Pep Albumin Scxyh-9-Oxdpzdtji Dwmre-4-Qzvgmjlgs Beta Globulins PEP Interpretation Cholesterol LDL Cholesterol Direct 03/31/16 04/01/16 04/01/16 21:27 04:41 05:35 WBC 12.1 H RBC Hgb Hct MCV 81 L MCH 26 L MCHC Plt Count Lymph % (Auto) 8.5 L [place] % (Auto) 14.0 H Lymph # 1.0 L [place] # 1.7 H Baso # Seg Neutrophils % 76.2 H Seg Neuts % (Manual) Lymphocytes % (Manual) Seg Neutrophils # 9.2 H Seg Neutrophils # Man Lymphocytes # (Manual) Monocytes # (Manual) POC ABG pH 7.455 H POC ABG pCO2 31.0 L POC ABG pO2 Sodium Potassium Chloride Carbon Dioxide BUN Creatinine Glucose POC Glucose 162 H Calcium Phosphorus Lactate Dehydrogenase Total Creatine Kinase NT-Pro-B Natriuret Pep Albumin Wgcdt-1-Ezulueaen Gvijq-3-Ksxjwwlaq Beta Globulins PEP Interpretation Cholesterol LDL Cholesterol Direct 04/01/16 04/01/16 04/01/16 05:35 08:44 12:49 WBC RBC Hgb Hct MCV MCH MCHC Plt Count Lymph % (Auto) [place] % (Auto) Lymph # [place] # Baso # Seg Neutrophils % Seg Neuts % (Manual) Lymphocytes % (Manual) Seg Neutrophils # Seg Neutrophils # Man Lymphocytes # (Manual) Monocytes # (Manual) POC ABG pH POC ABG pCO2 POC ABG pO2 Sodium Potassium Chloride Carbon Dioxide BUN Creatinine Glucose 256 H POC Glucose 257 H 279 H Calcium 8.0 L Phosphorus Lactate Dehydrogenase Total Creatine Kinase NT-Pro-B Natriuret Pep 1205 H Albumin [place]pung-6-Oymipizdn Idyrq-0-Vpbgtzmld Beta Globulins PEP Interpretation Cholesterol LDL Cholesterol Direct 04/01/16 04/02/16 04/02/16 18:12 00:42 04:17 WBC RBC Hgb Hct MCV MCH MCHC Plt Count Lymph % (Auto) [place] % (Auto) Lymph # [place] # Baso # Seg Neutrophils % Seg Neuts % (Manual) Lymphocytes % (Manual) Seg Neutrophils # Seg Neutrophils # Man Lymphocytes # (Manual) Monocytes # (Manual) POC ABG pH 7.582 H POC ABG pCO2 26.8 L POC ABG pO2 Sodium Potassium Chloride Carbon Dioxide BUN Creatinine Glucose POC Glucose 168 H 282 H Calcium Phosphorus Lactate Dehydrogenase Total Creatine Kinase NT-Pro-B Natriuret Pep Albumin Vafgi-0-Mmbzsvavj Drteb-6-Jjqlcplal Beta Globulins PEP Interpretation Cholesterol LDL Cholesterol Direct 04/02/16 04/02/16 04/02/16 05:00 05:00 06:27 WBC 12.4 H RBC Hgb Hct MCV 81 L MCH 26 L MCHC Plt Count Lymph % (Auto) 6.4 L [place] % (Auto) 13.3 H Lymph # 0.8 L [place] # 1.7 H Baso # Seg Neutrophils % 79.4 H Seg Neuts % (Manual) Lymphocytes % (Manual) Seg Neutrophils # 9.9 H Seg Neutrophils # Man Lymphocytes # (Manual) Monocytes # (Manual) POC ABG pH POC ABG pCO2 POC ABG pO2 Sodium 146 H Potassium Chloride Carbon Dioxide BUN Creatinine Glucose 334 H POC Glucose 317 H Calcium 8.0 L Phosphorus Lactate Dehydrogenase Total Creatine Kinase NT-Pro-B Natriuret Pep Albumin Ljqao-0-Gcapvshlz Siutt-4-Txedpveja Beta Globulins PEP Interpretation Cholesterol LDL Cholesterol Direct 04/02/16 04/02/16 04/02/16 11:51 13:10 17:24 WBC RBC Hgb Hct MCV MCH MCHC Plt Count Lymph % (Auto) [place] % (Auto) Lymph # [place] # Baso # Seg Neutrophils % Seg Neuts % (Manual) Lymphocytes % (Manual) Seg Neutrophils # Seg Neutrophils # Man Lymphocytes # (Manual) Monocytes # (Manual) POC ABG pH 7.518 H POC ABG pCO2 POC ABG pO2 Sodium Potassium Chloride Carbon Dioxide BUN Creatinine Glucose POC Glucose 278 H 195 H Calcium Phosphorus Lactate Dehydrogenase Total Creatine Kinase NT-Pro-B Natriuret Pep Albumin Iuclb-8-Bfzyzgfoh Pkapz-4-Cvmrmjthu Beta Globulins PEP Interpretation Cholesterol LDL Cholesterol Direct 04/03/16 04/03/16 04/03/16 00:18 04:10 04:10 WBC 14.3 H RBC Hgb Hct MCV 81 L MCH 26 L MCHC Plt Count Lymph % (Auto) 9.0 L [place] % (Auto) 10.7 H Lymph # [place] # 1.5 H Baso # 0.2 H Seg Neutrophils % 78.5 H Seg Neuts % (Manual) Lymphocytes % (Manual) Seg Neutrophils # 11.3 H Seg Neutrophils # Man Lymphocytes # (Manual) Monocytes # (Manual) POC ABG pH POC ABG pCO2 POC ABG pO2 Sodium 148 H Potassium Chloride 108.1 H Carbon Dioxide BUN 21 H Creatinine Glucose 227 H POC Glucose 144 H Calcium 8.2 L Phosphorus Lactate Dehydrogenase Total Creatine Kinase NT-Pro-B Natriuret Pep Albumin Zhqyw-1-Olmgwmswe Ambdn-9-Imozcdmwl Beta Globulins PEP Interpretation Cholesterol LDL Cholesterol Direct 04/03/16 11:14 WBC RBC Hgb Hct MCV MCH MCHC Plt Count Lymph % (Auto) [place] % (Auto) Lymph # [place] # Baso # Seg Neutrophils % Seg Neuts % (Manual) Lymphocytes % (Manual) Seg Neutrophils # Seg Neutrophils # Man Lymphocytes # (Manual) Monocytes # (Manual) POC ABG pH POC ABG pCO2 POC ABG pO2 Sodium Potassium Chloride Carbon Dioxide BUN Creatinine Glucose POC Glucose 267 H Calcium Phosphorus Lactate Dehydrogenase Total Creatine Kinase NT-Pro-B Natriuret Pep Albumin Uovyy-2-Kauywryll Kjrha-0-Ttjlwjsos Beta Globulins PEP Interpretation Cholesterol LDL Cholesterol Direct
--- NOTE | 2016-04-03 20:37 | Progress Note ---
Assessment and Plan - Patient Problems (1) Acute respiratory failure Current Visit: Yes Status: Acute Plan to address problem: Continue supportive management, conservative cardiac. Subjective Date of service: 04/03/16 Interval history: Patient is somnolent, NG tube in place. Objective Vital Signs Temp Pulse Pulse Resp Resp BP Pulse Ox 04/03/16 19:00 85 19 129/81 97 04/03/16 18:01 83 19 135/87 95 04/03/16 17:31 81 22 125/82 98 04/03/16 17:23 82 19 125/82 97 04/03/16 17:01 84 26 H 125/82 95 04/03/16 16:31 87 27 H 109/70 96 04/03/16 16:02 88 24 115/74 99 04/03/16 16:00 89 27 H 109/70 97 04/03/16 15:42 98.9 F 04/03/16 15:31 89 22 115/74 99 04/03/16 15:00 87 20 115/74 97 04/03/16 14:31 89 13 117/69 96 04/03/16 14:00 85 18 117/69 98 04/03/16 13:31 86 25 H 142/75 98 04/03/16 13:01 83 24 142/75 99 04/03/16 13:00 83 23 142/75 04/03/16 12:59 84 17 104/59 98 04/03/16 12:31 78 20 104/59 99 04/03/16 12:00 77 21 104/59 98 04/03/16 11:57 98.4 F 04/03/16 11:31 80 22 111/69 100 04/03/16 11:00 79 21 111/69 96 04/03/16 10:31 76 20 113/69 97 04/03/16 10:21 78 22 113/69 98 04/03/16 10:00 75 30 H 22 113/69 97 04/03/16 09:50 77 20 121/79 97 04/03/16 09:31 75 22 172/97 98 04/03/16 09:29 74 22 172/97 98 04/03/16 09:27 76 172/97 04/03/16 09:25 78 172/97 04/03/16 09:00 81 17 172/97 94 04/03/16 08:59 80 22 115/80 99 04/03/16 08:55 98 04/03/16 08:31 86 19 115/80 99 04/03/16 08:01 84 22 115/80 97 04/03/16 08:00 98.4 F 78 21 97 04/03/16 07:31 83 21 138/88 98 04/03/16 07:00 83 21 138/88 95 04/03/16 06:39 82 22 165/103 97 04/03/16 06:31 81 21 165/103 98 04/03/16 06:00 84 24 165/103 96 04/03/16 05:31 75 17 155/85 99 04/03/16 05:27 73 21 155/85 98 04/03/16 05:00 73 24 155/85 97 04/03/16 04:31 72 16 153/92 98 04/03/16 04:00 100 F H 78 85 19 153/92 99 04/03/16 03:31 78 18 144/93 98 04/03/16 03:00 80 18 144/93 96 04/03/16 02:31 79 21 154/95 100 04/03/16 02:00 83 18 154/95 96 04/03/16 01:31 89 20 118/78 99 04/03/16 01:09 89 22 118/78 99 04/03/16 01:00 89 22 118/78 97 04/03/16 00:36 98.4 F 04/03/16 00:33 88 27 H 151/91 99 04/03/16 00:31 89 22 151/91 99 04/03/16 00:15 90 22 99 04/03/16 00:00 85 21 151/91 96 04/02/16 23:31 82 12 122/71 98 04/02/16 23:00 83 22 122/71 97 04/02/16 22:31 86 22 150/84 98 04/02/16 22:23 88 22 150/84 99 04/02/16 22:15 90 04/02/16 22:00 84 13 150/84 97 04/02/16 21:31 83 23 146/95 98 04/02/16 21:27 83 22 146/95 99 04/02/16 21:00 83 23 146/95 97 - Physical Examination General: Other (somnolent, no acute respiratory distress.) HEENT: Positive: PERRL Neck: Positive: neck supple Cardiac: Positive: Reg Rate and Rhythm Lungs: Positive: Decreased Breath Sounds Neuro: Positive: Weakness Abdomen: Positive: Soft Skin: Positive: Clear Extremities: Absent: edema - Labs and Meds CBC 04/03/16 Range/Units 04:10 WBC 14.3 H (4.5-11.0) K/mm3 RBC 4.68 (3.65-5.03) M/mm3 Hgb 12.2 (11.8-15.2) gm/dl Hct 37.8 (35.5-45.6) % Plt Count 269 (140-440) K/mm3 Lymph # 1.3 (1.2-5.4) K/mm3 [place] # 1.5 H (0.0-0.8) K/mm3 Eos # 0.1 (0.0-0.4) K/mm3 Baso # 0.2 H (0.0-0.1) K/mm3 Comprehensive Metabolic Panel 04/03/16 Range/Units 04:10 Sodium 148 H (137-145) mmol/L Potassium 4.0 (3.6-5.0) mmol/L Chloride 108.1 H (98-107) mmol/L Carbon Dioxide 27 (22-30) mmol/L BUN 21 H (9-20) mg/dL Creatinine 1.2 (0.8-1.5) mg/dL Glucose 227 H (75-100) mg/dL Calcium 8.2 L (8.4-10.2) mg/dL - Imaging and Cardiology EKG: image reviewed
[2016-04-04] MEDS: NOVOLOG SUB-Q SCH ×4 (00:32→18:00)
[2016-04-04] MEDS: HEPARIN SUB-Q SCH (05:37)
[2016-04-04 05:54] LABS: Basophils % (Auto) 0.4 % (0.0-1.8); Eosinophils % (Auto) 0.3 % (0.0-4.3); Hematocrit 36.6 % (35.5-45.6); Hemoglobin 11.9 gm/dl (11.8-15.2); Mean Corpuscular HGB Conc 33 % (32-34); Mean Corpuscular Hemoglobin 26 pg (28-32); Mean Corpuscular Volume 81 fl (84-94); Platelet Count 308 K/mm3 (140-440); Red Blood Count 4.54 M/mm3 (3.65-5.03); Red Cell Distribution Width 14.9 % (13.2-15.2); White Blood Count 14.5 K/mm3 (4.5-11.0)
[2016-04-04 06:16] LABS: Anion Gap 13 mmol/L; BUN/Creatinine Ratio 16.92; Blood Urea Nitrogen 22 mg/dL (9-20); Calcium 8.7 mg/dL (8.4-10.2); Carbon Dioxide 30 mmol/L (22-30); Glucose 128 mg/dL (75-100); Potassium 4.1 mmol/L (3.6-5.0); Sodium 146 mmol/L (137-145)
[2016-04-04] MEDS: LEVEMIR SUB-Q SCH (08:39)
[2016-04-04] MEDS: NORMODYNE PO SCH ×2 (09:31→23:22)
[2016-04-04] MEDS: KEPPRA PO SCH ×2 (09:31→22:30)
[2016-04-04] MEDS: ZESTRIL PO SCH ×2 (09:31→22:30)
[2016-04-04] MEDS: PEPCID PO SCH ×2 (09:31→22:30)
[2016-04-04] MEDS: CORDARONE PO SCH (09:32)
[2016-04-04] MEDS: ASPIRIN PO SCH (09:32)
--- NOTE | 2016-04-04 09:53 | Progress Note ---
Assessment and Plan Assessment and plan: 1. Acute respiratory failure. Patient extubated yesterday and tolerating nasal cannula. 2. Acute CVA. CT scan revealed acute ischemic infarct in the right cerebellum. MRI reveals subacute infarct in the right cerebellar hemisphere with associated edema and mass effect as previously described. Patient also with multiple areas of acute infarct in the left occipital and frontal lobes that are most likely embolic. LIZZIE later this week. I discussed with Cardiology. We will also start heparin drip. Continue statin. 3. Hypernatremia -resolved. Continue to monitor BMP. 4. Metabolic encephalopathy. Continue management as discussed above. EEG normal. 5. Group B strep UTI-continue IV ceftriaxone; wbc normal and afebrile 6. Accelerated hypertension. Continue medications of lisinopril and labetalol 7. CAD-stable, continue current beta em, statin 8. Seizures-continue Keppra. EEG normal. 9. Type 2 diabetes mellitus. Uncontrolled. Increased long acting insulin of Levemir to 25 units BID. 10. History of aortic dissection status post repair. 11. History of prosthetic aortic valve replacement. Echo with normal function on 08/2015. 12. DVT prophylaxis-Lovenox 13. GI prophylaxis-Pepcid The high probability of a clinically significant, sudden or life threatening deterioration of the [respiratory and neurological] system(s) required my full and direct attention, intervention and personal management. The aggregate critical care time was [31] minutes. This time is in addition to time spent performing reported procedures but includes the following: [x] Data Review and interpretation [x] Patient assessment and monitoring of vital signs [x] Documentation [x] Medication orders and management History Interval history: Patient is currently extubated with no new issues overnight. Patient is currently sitting up in a chair. Hospitalist Physical - Constitutional Vitals: Temp Pulse Resp BP Pulse Ox 99.1 F 87 22 163/86 96 04/04/16 07:49 04/04/16 09:31 04/04/16 08:00 04/04/16 09:31 04/04/16 08:50 General appearance: Present: other (vented) - EENT Eyes: Present: PERRL, EOM intact ENT: hearing intact, clear oral mucosa, dentition normal - Neck Neck: Present: supple, normal ROM - Respiratory Respiratory effort: normal Respiratory: bilateral: diminished, rhonchi - Cardiovascular Rhythm: regular Heart Sounds: Present: S1 & S2. Absent: gallop, rub - Extremities Extremities: no ischemia, No edema, Full ROM - Abdominal General gastrointestinal: soft, non-tender, non-distended, normal bowel sounds - Integumentary Integumentary: Present: clear, warm, dry - Neurologic Neurologic: CNII-XII intact, moves all extremities Results - Labs CBC & Chem 7: 04/04/16 04:00 04/04/16 05:00 Labs: Laboratory Last Values WBC 14.5 K/mm3 (4.5-11.0) H 04/04/16 04:00 RBC 4.54 M/mm3 (3.65-5.03) 04/04/16 04:00 Hgb 11.9 gm/dl (11.8-15.2) 04/04/16 04:00 Hct 36.6 % (35.5-45.6) 04/04/16 04:00 MCV 81 fl (84-94) L 04/04/16 04:00 MCH 26 pg (28-32) L 04/04/16 04:00 MCHC 33 % (32-34) 04/04/16 04:00 RDW 14.9 % (13.2-15.2) 04/04/16 04:00 Plt Count 308 K/mm3 (140-440) 04/04/16 04:00 Lymph % (Auto) 7.2 % (13.4-35.0) L 04/04/16 04:00 [place] % (Auto) 7.6 % (0.0-7.3) H 04/04/16 04:00 Eos % (Auto) 0.3 % (0.0-4.3) 04/04/16 04:00 Baso % (Auto) 0.4 % (0.0-1.8) 04/04/16 04:00 Lymph # 1.0 K/mm3 (1.2-5.4) L 04/04/16 04:00 [place] # 1.1 K/mm3 (0.0-0.8) H 04/04/16 04:00 Eos # 0.0 K/mm3 (0.0-0.4) 04/04/16 04:00 Baso # 0.1 K/mm3 (0.0-0.1) 04/04/16 04:00 Add Manual Diff Complete 03/25/16 05:56 Total Counted 100 03/25/16 05:56 Seg Neutrophils % 84.5 % (40.0-70.0) H 04/04/16 04:00 Seg Neuts % (Manual) 91.0 % (40.0-70.0) H 03/25/16 05:56 Band Neutrophils % 1.0 % 03/25/16 05:56 Lymphocytes % (Manual) 4.0 % (13.4-35.0) L 03/25/16 05:56 Reactive Lymphs % (Man) 0 % 03/25/16 05:56 Monocytes % (Manual) 4.0 % (0.0-7.3) 03/25/16 05:56 Eosinophils % (Manual) 0 % (0.0-4.3) 03/25/16 05:56 Basophils % (Manual) 0 % (0.0-1.8) 03/25/16 05:56 Metamyelocytes % 0 % 03/25/16 05:56 Myelocytes % 0 % 03/25/16 05:56 Promyelocytes % 0 % 03/25/16 05:56 Blast Cells % 0 % 03/25/16 05:56 Nucleated RBC % Not Reportable 03/25/16 05:56 Seg Neutrophils # 12.3 K/mm3 (1.8-7.7) H 04/04/16 04:00 Seg Neutrophils # Man 19.4 K/mm3 (1.8-7.7) H 03/25/16 05:56 Band Neutrophils # 0.2 K/mm3 03/25/16 05:56 Lymphocytes # (Manual) 0.9 K/mm3 (1.2-5.4) L 03/25/16 05:56 Abs React Lymphs (Man) 0.0 K/mm3 03/25/16 05:56 Monocytes # (Manual) 0.9 K/mm3 (0.0-0.8) H 03/25/16 05:56 Eosinophils # (Manual) 0.0 K/mm3 (0.0-0.4) 03/25/16 05:56 Basophils # (Manual) 0.0 K/mm3 (0.0-0.1) 03/25/16 05:56 Metamyelocytes # 0.0 K/mm3 03/25/16 05:56 Myelocytes # 0.0 K/mm3 03/25/16 05:56 Promyelocytes # 0.0 K/mm3 03/25/16 05:56 Blast Cells # 0.0 K/mm3 03/25/16 05:56 WBC Morphology Not Reportable 03/25/16 05:56 Hypersegmented Neuts Not Reportable 03/25/16 05:56 Hyposegmented Neuts Not Reportable 03/25/16 05:56 Hypogranular Neuts Not Reportable 03/25/16 05:56 Smudge Cells Not Reportable 03/25/16 05:56 Toxic Granulation Not Reportable 03/25/16 05:56 Toxic Vacuolation Not Reportable 03/25/16 05:56 Dohle Bodies Not Reportable 03/25/16 05:56 Pelger-Huet Anomaly Not Reportable 03/25/16 05:56 Corina Rods Not Reportable 03/25/16 05:56 Platelet Estimate Appears normal 03/25/16 05:56 Clumped Platelets Not Reportable 03/25/16 05:56 Plt Clumps, EDTA Not Reportable 03/25/16 05:56 Large Platelets Not Reportable 03/25/16 05:56 Giant Platelets Not Reportable 03/25/16 05:56 Platelet Satelliting Not Reportable 03/25/16 05:56 Plt Morphology Comment Not Reportable 03/25/16 05:56 RBC Morphology Normal 03/25/16 05:56 Dimorphic RBCs Not Reportable 03/25/16 05:56 Polychromasia Not Reportable 03/25/16 05:56 Hypochromasia Not Reportable 03/25/16 05:56 Poikilocytosis Not Reportable 03/25/16 05:56 Anisocytosis Not Reportable 03/25/16 05:56 Microcytosis Not Reportable 03/25/16 05:56 Macrocytosis Not Reportable 03/25/16 05:56 Spherocytes Not Reportable 03/25/16 05:56 Pappenheimer Bodies Not Reportable 03/25/16 05:56 Sickle Cells Not Reportable 03/25/16 05:56 Target Cells Not Reportable 03/25/16 05:56 Tear Drop Cells Not Reportable 03/25/16 05:56 Ovalocytes Not Reportable 03/25/16 05:56 Helmet Cells Not Reportable 03/25/16 05:56 Mcgrath-[place] Bodies Not Reportable 03/25/16 05:56 [place] Rings Not Reportable 03/25/16 05:56 Tuan Cells Not Reportable 03/25/16 05:56 Bite Cells Not Reportable 03/25/16 05:56 Crenated Cell Not Reportable 03/25/16 05:56 Elliptocytes Not Reportable 03/25/16 05:56 Acanthocytes (Spur) Not Reportable 03/25/16 05:56 Rouleaux Not Reportable 03/25/16 05:56 Hemoglobin C Crystals Not Reportable 03/25/16 05:56 Schistocytes Not Reportable 03/25/16 05:56 Malaria parasites Not Reportable 03/25/16 05:56 Gideon Bodies Not Reportable 03/25/16 05:56 Hem Pathologist Commnt No 03/25/16 05:56 PT 14.6 Sec. (12.2-14.9) 03/24/16 14:00 INR 1.15 (0.87-1.13) H 03/24/16 14:00 POC ABG pH 7.518 (7.35-7.45) H 04/02/16 13:10 POC ABG pCO2 35.5 (35-45) 04/02/16 13:10 POC ABG pO2 87 (80-105) 04/02/16 13:10 POC ABG HCO3 28.8 04/02/16 13:10 POC ABG Total CO2 30 04/02/16 13:10 POC ABG O2 Sat 98 04/02/16 13:10 POC ABG Base Excess 6 04/02/16 13:10 VBG pH 7.418 (7.320-7.420) 03/24/16 14:00 FiO2 25 % 04/02/16 13:10 Sodium 146 mmol/L (137-145) H 04/04/16 05:00 Potassium 4.1 mmol/L (3.6-5.0) 04/04/16 05:00 Chloride 107.0 mmol/L (98-107) 04/04/16 05:00 Carbon Dioxide 30 mmol/L (22-30) 04/04/16 05:00 Anion Gap 13 mmol/L 04/04/16 05:00 BUN 22 mg/dL (9-20) H 04/04/16 05:00 Creatinine 1.3 mg/dL (0.8-1.5) 04/04/16 05:00 Estimated GFR > 60 ml/min 04/04/16 05:00 BUN/Creatinine Ratio 16.92 % 04/04/16 05:00 Glucose 128 mg/dL (75-100) H 04/04/16 05:00 POC Glucose 76 (70-105) 04/04/16 00:28 Hemoglobin A1c 9.6 % (4-6) H 03/24/16 14:00 Lactic Acid 2.8 mmol/L (0.7-2.1) H 03/24/16 15:26 Calcium 8.7 mg/dL (8.4-10.2) 04/04/16 05:00 Phosphorus 2.3 mg/dL (2.5-4.5) L D 03/30/16 04:00 Magnesium 1.9 mg/dL (1.7-2.3) 03/30/16 04:00 Total Bilirubin 0.3 mg/dL (0.1-1.2) 03/24/16 14:00 AST 24 units/L (5-40) 03/24/16 14:00 ALT 38 units/L (7-56) 03/24/16 14:00 Alkaline Phosphatase 77 units/L (35-129) 03/24/16 14:00 Lactate Dehydrogenase 460 units/L (91-180) H 03/25/16 05:56 Total Creatine Kinase 356 units/L (55-170) H 03/28/16 13:29 Troponin T < 0.010 ng/mL (0.00-0.029) 03/28/16 13:29 NT-Pro-B Natriuret Pep 897.9 pg/mL (0-900) 04/03/16 04:10 Serum Total Protein 7.1 g/dL (6.1-8.1) 03/25/16 13:00 Total Protein 7.4 g/dL (6.3-8.2) 03/24/16 14:00 Albumin 3.4 g/dL (3.8-4.8) L 03/25/16 13:00 Albumin/Globulin Ratio 0.9 % 03/24/16 14:00 Fqzso-9-Gqodukzko 0.4 g/dL (0.2-0.3) H 03/25/16 13:00 Qezkz-6-Kvrahpnti 1.1 g/dL (0.5-0.9) H 03/25/16 13:00 Beta Globulins 0.6 g/dL (0.2-0.5) H 03/25/16 13:00 Cwun-5-Mfifigtuxcaop 2.46 mg/L (<=2.51) 03/25/16 13:00 Gamma Globulins 1.3 g/dL (0.8-1.7) 03/25/16 13:00 Abnorm Protein Band 1 see below (()) 03/25/16 13:00 PEP Interpretation see below (()) H 03/25/16 13:00 Triglycerides 88 mg/dL (2-149) 03/24/16 17:58 Cholesterol 221 mg/dL (50-199) H 03/24/16 17:58 LDL Cholesterol Direct 146 mg/dL (50-130) H 03/24/16 17:58 HDL Cholesterol 58 mg/dL (40-59) 03/24/16 17:58 Cholesterol/HDL Ratio 3.81 % 03/24/16 17:58 Urine Color Yellow (Yellow) 03/24/16 14:27 Urine Turbidity Clear (Clear) 03/24/16 14:27 Urine pH 5.0 (5.0-7.0) 03/24/16 14:27 Ur Specific [place] 1.017 (1.003-1.030) 03/24/16 14:27 Urine Protein <15 mg/dl mg/dL (Negative) 03/24/16 14:27 Urine Glucose (UA) >=500 mg/dL (Negative) 03/24/16 14:27 Urine Ketones Neg mg/dL (Negative) 03/24/16 14:27 Urine Blood Sm (Negative) 03/24/16 14:27 Urine Nitrite Neg (Negative) 03/24/16 14:27 Urine Bilirubin Neg (Negative) 03/24/16 14:27 Urine Urobilinogen < 2.0 mg/dL (<2.0) 03/24/16 14:27 Ur Leukocyte Esterase Neg (Negative) 03/24/16 14:27 Urine WBC (Auto) 2.0 /HPF (0.0-6.0) 03/24/16 14:27 Urine RBC (Auto) < 1.0 /HPF (0.0-6.0) 03/24/16 14:27 U Epithel Cells (Auto) 4.0 /HPF (0-13.0) 03/24/16 14:27 Hyaline Casts 1 /LPF 03/24/16 14:27 Urine Mucus Few /HPF 03/24/16 14:27 Ketones 1.0 mg/dL (0.2-2.8) 03/24/16 14:00
[2016-04-04] MEDS ORDERED: HEPARIN 10,000 UNITS/10 ML IV ONE (09:55)
[2016-04-04 10:52] LABS: Hematocrit 36.1 % (35.5-45.6); Hemoglobin 11.5 gm/dl (11.8-15.2)
[2016-04-04 11:05] LABS: INR 1.04 (0.87-1.13)
[2016-04-04 11:06] LABS: Partial Thromboplastin Time 42.1 Sec. (24.2-36.6)
[2016-04-04] MEDS: HEPARIN/ 0.45% NACL-25,000 UNIT/500 ML 500 ML IV SCH (11:42)
--- NOTE | 2016-04-04 11:54 | Progress Note ---
Assessment and Plan - Patient Problems (1) CVA (cerebral vascular accident) Current Visit: Yes Status: Acute Plan to address problem: Multiple infarct CVA on MRI, possibly cardioembolic. A LIZZIE has been requested, we'll proceed in the a.m. Hold tube feedings after midnight. (2) Acute respiratory failure Current Visit: Yes Status: Acute Plan to address problem: Continue supportive management. Subjective Date of service: 04/04/16 Interval history: Patient is somnolent, NG tube in place. Was noted on an MRI of the brain that there was evidence of multiple, possibly cardioembolic infarcts. Objective Vital Signs Temp Pulse Pulse Resp Resp BP Pulse Ox 04/04/16 11:00 84 21 146/90 95 04/04/16 10:00 83 27 H 30 H 162/96 97 04/04/16 09:31 83 163/86 04/04/16 09:00 82 24 163/86 95 04/04/16 08:50 96 04/04/16 08:00 83 84 28 H 179/97 96 04/04/16 07:49 99.1 F 04/04/16 07:41 82 24 179/117 97 04/04/16 07:00 85 23 179/117 96 04/04/16 06:19 85 20 179/113 96 04/04/16 06:00 83 27 H 94 04/04/16 05:00 91 H 28 H 162/101 92 04/04/16 04:00 98.6 F 84 24 137/81 94 04/04/16 03:23 82 23 98 04/04/16 03:21 84 29 H 177/99 97 04/04/16 03:01 85 26 H 177/99 93 04/04/16 02:59 83 21 136/82 98 04/04/16 02:07 79 24 136/82 99 04/04/16 02:00 77 23 136/82 97 04/04/16 01:09 81 22 151/92 99 04/04/16 01:00 82 23 151/92 95 04/04/16 00:00 98.6 F 91 H 90 24 146/90 98 04/03/16 23:00 90 29 H 125/81 95 04/03/16 22:00 88 20 133/94 95 04/03/16 21:28 101 H 157/89 04/03/16 21:01 95 H 23 157/89 95 04/03/16 20:00 98.8 F 82 86 16 126/74 98 04/03/16 19:08 88 15 129/81 99 04/03/16 19:00 85 19 129/81 97 04/03/16 18:01 83 19 135/87 95 04/03/16 17:31 81 22 125/82 98 04/03/16 17:23 82 19 125/82 97 04/03/16 17:01 84 26 H 125/82 95 04/03/16 16:31 87 27 H 109/70 96 04/03/16 16:02 88 24 115/74 99 04/03/16 16:00 89 27 H 109/70 97 04/03/16 15:42 98.9 F 04/03/16 15:31 89 22 115/74 99 04/03/16 15:00 87 20 115/74 97 04/03/16 14:31 89 13 117/69 96 04/03/16 14:00 85 18 117/69 98 04/03/16 13:31 86 25 H 142/75 98 04/03/16 13:01 83 24 142/75 99 04/03/16 13:00 83 23 142/75 04/03/16 12:59 84 17 104/59 98 04/03/16 12:31 78 20 104/59 99 04/03/16 12:00 77 21 104/59 98 04/03/16 11:57 98.4 F - Physical Examination General: Other (somnolent, no acute respiratory distress.) HEENT: Positive: PERRL Neck: Positive: neck supple Cardiac: Positive: Reg Rate and Rhythm Lungs: Positive: Decreased Breath Sounds Neuro: Positive: Weakness Abdomen: Positive: Soft Skin: Positive: Clear Extremities: Absent: edema - Labs and Meds Coagulation 04/04/16 Range/Units 09:55 PT 13.5 (12.2-14.9) Sec. INR 1.04 (0.87-1.13) APTT 42.1 H (24.2-36.6) Sec. CBC 04/04/16 04/04/16 Range/Units 04:00 09:55 WBC 14.5 H (4.5-11.0) K/mm3 RBC 4.54 (3.65-5.03) M/mm3 Hgb 11.9 11.5 L (11.8-15.2) gm/dl Hct 36.6 36.1 (35.5-45.6) % Plt Count 308 305 (140-440) K/mm3 Lymph # 1.0 L (1.2-5.4) K/mm3 [place] # 1.1 H (0.0-0.8) K/mm3 Eos # 0.0 (0.0-0.4) K/mm3 Baso # 0.1 (0.0-0.1) K/mm3 Comprehensive Metabolic Panel 04/04/16 Range/Units 05:00 Sodium 146 H (137-145) mmol/L Potassium 4.1 (3.6-5.0) mmol/L Chloride 107.0 (98-107) mmol/L Carbon Dioxide 30 (22-30) mmol/L BUN 22 H (9-20) mg/dL Creatinine 1.3 (0.8-1.5) mg/dL Glucose 128 H (75-100) mg/dL Calcium 8.7 (8.4-10.2) mg/dL - Imaging and Cardiology EKG: image reviewed
--- NOTE | 2016-04-04 12:25 | Progress Note ---
Assessment and Plan - Patient Problems (1) Acute renal failure Current Visit: Yes Status: Acute (2) Acute respiratory failure Current Visit: Yes Status: Acute (3) Altered mental status Current Visit: Yes Status: Acute Qualifiers: Altered mental status type: unspecified Qualified Code(s): R41.82 - Altered mental status, unspecified (4) CAD (coronary artery disease) Current Visit: Yes Status: Acute (5) Diabetes Current Visit: Yes Status: Acute (6) Encephalopathy Current Visit: Yes Status: Acute (7) Acute ST elevation myocardial infarction (STEMI) Current Visit: No Status: Acute Qualifiers: Involved coronary artery: LAD coronary artery Qualified Code(s): I21.02 - ST elevation (STEMI) myocardial infarction involving left anterior descending coronary artery (8) CHF (congestive heart failure), NYHA class III Current Visit: Yes Status: Acute Subjective Interval history: awake in bed on o2 Objective Vital Signs - 12hr 04/04/16 04/04/16 04/04/16 01:00 01:09 02:00 Temperature Pulse Rate 82 81 77 Pulse Rate [ From Monitor] Respiratory 23 22 23 Rate Respiratory Rate [ Generalized] Blood Pressure 151/92 151/92 136/82 O2 Sat by Pulse 95 99 97 Oximetry 04/04/16 04/04/16 04/04/16 02:07 02:59 03:01 Temperature Pulse Rate 79 83 85 Pulse Rate [ From Monitor] Respiratory 24 21 26 H Rate Respiratory Rate [ Generalized] Blood Pressure 136/82 136/82 177/99 O2 Sat by Pulse 99 98 93 Oximetry 04/04/16 04/04/16 04/04/16 03:21 03:23 04:00 Temperature 98.6 F Pulse Rate 84 84 Pulse Rate [ 82 From Monitor] Respiratory 29 H 23 24 Rate Respiratory Rate [ Generalized] Blood Pressure 177/99 137/81 O2 Sat by Pulse 97 98 94 Oximetry 04/04/16 04/04/16 04/04/16 05:00 06:00 06:19 Temperature Pulse Rate 91 H 83 85 Pulse Rate [ From Monitor] Respiratory 28 H 27 H 20 Rate Respiratory Rate [ Generalized] Blood Pressure 162/101 179/113 O2 Sat by Pulse 92 94 96 Oximetry 04/04/16 04/04/16 04/04/16 07:00 07:41 07:49 Temperature 99.1 F Pulse Rate 85 82 Pulse Rate [ From Monitor] Respiratory 23 24 Rate Respiratory Rate [ Generalized] Blood Pressure 179/117 179/117 O2 Sat by Pulse 96 97 Oximetry 04/04/16 04/04/16 04/04/16 08:00 08:50 09:00 Temperature Pulse Rate 83 82 Pulse Rate [ 84 From Monitor] Respiratory 28 H 24 Rate Respiratory Rate [ Generalized] Blood Pressure 179/97 163/86 O2 Sat by Pulse 96 96 95 Oximetry 04/04/16 04/04/16 04/04/16 09:31 10:00 11:00 Temperature Pulse Rate 83 83 84 Pulse Rate [ From Monitor] Respiratory 27 H 21 Rate Respiratory 30 H Rate [ Generalized] Blood Pressure 163/86 162/96 146/90 O2 Sat by Pulse 97 95 Oximetry Constitutional: no acute distress, other (follow commands) Eyes: non-icteric ENT: other (orally intubated and sedated) Neck: supple Effort: normal Ascultation: Bilateral: rhonchi (occasional) Percussion: Bilateral: not dull Cardiovascular: regular rate and rhythm, irregular rhythm Gastrointestinal: normoactive bowel sounds, soft, non-tender Extremities: no cyanosis, no edema Neurologic: other (RASS 0 ) CBC and BMP: 04/04/16 09:55 04/04/16 05:00 ABG, PT/INR, D-dimer: ABG POC ABG pH 7.518 (7.35-7.45) H 04/02/16 13:10 POC ABG pCO2 35.5 (35-45) 04/02/16 13:10 POC ABG pO2 87 (80-105) 04/02/16 13:10 POC ABG HCO3 28.8 04/02/16 13:10 POC ABG Total CO2 30 04/02/16 13:10 POC ABG O2 Sat 98 04/02/16 13:10 PT/INR, D-dimer PT 13.5 Sec. (12.2-14.9) 04/04/16 09:55 INR 1.04 (0.87-1.13) 04/04/16 09:55 Abnormal lab findings: Abnormal Labs 03/24/16 03/24/16 03/24/16 17:58 20:25 23:23 WBC RBC Hgb Hct MCV MCH MCHC Plt Count Lymph % (Auto) [place] % (Auto) Lymph # [place] # Baso # Seg Neutrophils % Seg Neuts % (Manual) Lymphocytes % (Manual) Seg Neutrophils # Seg Neutrophils # Man Lymphocytes # (Manual) Monocytes # (Manual) APTT POC ABG pH POC ABG pCO2 POC ABG pO2 Sodium 169 H* Potassium 3.5 L Chloride 130.3 H Carbon Dioxide BUN 28 H Creatinine 1.8 H Glucose POC Glucose 112 H Calcium Phosphorus Lactate Dehydrogenase Total Creatine Kinase NT-Pro-B Natriuret Pep Albumin Iircx-1-Csdyvrarq Rdynf-7-Uzcbmrysw Beta Globulins PEP Interpretation Cholesterol 221 H LDL Cholesterol Direct 146 H 03/25/16 03/25/16 03/25/16 05:56 05:56 05:56 WBC 21.3 H RBC 6.32 H Hgb 16.7 H Hct 52.7 H MCV 83 L MCH 27 L MCHC Plt Count Lymph % (Auto) [place] % (Auto) Lymph # [place] # Baso # Seg Neutrophils % Seg Neuts % (Manual) 91.0 H Lymphocytes % (Manual) 4.0 L Seg Neutrophils # Seg Neutrophils # Man 19.4 H Lymphocytes # (Manual) 0.9 L Monocytes # (Manual) 0.9 H APTT POC ABG pH POC ABG pCO2 POC ABG pO2 Sodium 172 H* Potassium 3.5 L Chloride 130.4 H Carbon Dioxide BUN 29 H Creatinine 1.8 H Glucose 187 H POC Glucose Calcium Phosphorus Lactate Dehydrogenase 460 H Total Creatine Kinase NT-Pro-B Natriuret Pep Albumin Owjem-3-Briodeyxt Bnolu-6-Uxhvoujph Beta Globulins PEP Interpretation Cholesterol LDL Cholesterol Direct 03/25/16 03/25/16 03/25/16 07:55 12:19 13:00 WBC RBC Hgb Hct MCV MCH MCHC Plt Count Lymph % (Auto) [place] % (Auto) Lymph # [place] # Baso # Seg Neutrophils % Seg Neuts % (Manual) Lymphocytes % (Manual) Seg Neutrophils # Seg Neutrophils # Man Lymphocytes # (Manual) Monocytes # (Manual) APTT POC ABG pH POC ABG pCO2 POC ABG pO2 Sodium Potassium Chloride Carbon Dioxide BUN Creatinine Glucose POC Glucose 231 H 314 H Calcium Phosphorus Lactate Dehydrogenase Total Creatine Kinase NT-Pro-B Natriuret Pep Albumin 3.4 L Xygah-2-Xlfwmtbbf 0.4 H Kbjmg-2-Dgslibdsm 1.1 H Beta Globulins 0.6 H PEP Interpretation see below H Cholesterol LDL Cholesterol Direct 03/25/16 03/25/16 03/26/16 16:41 22:45 08:32 WBC RBC Hgb Hct MCV MCH MCHC Plt Count Lymph % (Auto) [place] % (Auto) Lymph # [place] # Baso # Seg Neutrophils % Seg Neuts % (Manual) Lymphocytes % (Manual) Seg Neutrophils # Seg Neutrophils # Man Lymphocytes # (Manual) Monocytes # (Manual) APTT POC ABG pH POC ABG pCO2 POC ABG pO2 Sodium Potassium Chloride Carbon Dioxide BUN Creatinine Glucose POC Glucose 444 H 326 H 360 H Calcium Phosphorus Lactate Dehydrogenase Total Creatine Kinase NT-Pro-B Natriuret Pep Albumin Msphh-9-Onrgxflyy Lmtea-6-Hjtwqghdn Beta Globulins PEP Interpretation Cholesterol LDL Cholesterol Direct 03/26/16 03/26/16 03/26/16 12:38 15:33 15:47 WBC RBC Hgb Hct MCV MCH MCHC Plt Count Lymph % (Auto) [place] % (Auto) Lymph # [place] # Baso # Seg Neutrophils % Seg Neuts % (Manual) Lymphocytes % (Manual) Seg Neutrophils # Seg Neutrophils # Man Lymphocytes # (Manual) Monocytes # (Manual) APTT POC ABG pH 7.511 H POC ABG pCO2 26.5 L POC ABG pO2 70 L Sodium Potassium Chloride Carbon Dioxide BUN Creatinine Glucose POC Glucose 280 H 174 H Calcium Phosphorus Lactate Dehydrogenase Total Creatine Kinase NT-Pro-B Natriuret Pep Albumin Xhzpu-3-Imifymupl Anryx-1-Uffhprrzu Beta Globulins PEP Interpretation Cholesterol LDL Cholesterol Direct 03/26/16 03/26/16 03/26/16 16:47 16:47 18:51 WBC 14.0 H RBC 5.17 H Hgb Hct MCV MCH 26 L MCHC 31 L Plt Count 139 L Lymph % (Auto) [place] % (Auto) Lymph # [place] # Baso # Seg Neutrophils % Seg Neuts % (Manual) Lymphocytes % (Manual) Seg Neutrophils # Seg Neutrophils # Man Lymphocytes # (Manual) Monocytes # (Manual) APTT POC ABG pH POC ABG pCO2 33.9 L POC ABG pO2 150 H Sodium 164 H* Potassium 3.4 L Chloride 128.5 H Carbon Dioxide BUN 30 H Creatinine 2.2 H Glucose 121 H POC Glucose Calcium 8.1 L Phosphorus Lactate Dehydrogenase Total Creatine Kinase NT-Pro-B Natriuret Pep Albumin Owhdh-6-Lwtbiritc Qevwa-7-Eolszntbo Beta Globulins PEP Interpretation Cholesterol LDL Cholesterol Direct 03/27/16 03/27/1616 02:19 05:47 06:02 WBC RBC Hgb Hct MCV MCH MCHC Plt Count Lymph % (Auto) [place] % (Auto) Lymph # [place] # Baso # Seg Neutrophils % Seg Neuts % (Manual) Lymphocytes % (Manual) Seg Neutrophils # Seg Neutrophils # Man Lymphocytes # (Manual) Monocytes # (Manual) APTT POC ABG pH POC ABG pCO2 27.3 L 30.3 L POC ABG pO2 50 L 112 H Sodium 158 H Potassium Chloride 126.7 H Carbon Dioxide 20 L BUN 25 H Creatinine 1.7 H Glucose POC Glucose Calcium 7.0 L Phosphorus Lactate Dehydrogenase Total Creatine Kinase NT-Pro-B Natriuret Pep Albumin Ivads-4-Sewoudnwx Hpznu-6-Okgvxmuce Beta Globulins PEP Interpretation Cholesterol LDL Cholesterol Direct 03/27/16 03/27/16 03/27/16 07:51 09:20 11:45 WBC 14.2 H RBC Hgb Hct MCV 83 L MCH 27 L MCHC Plt Count 113 L Lymph % (Auto) [place] % (Auto) Lymph # [place] # Baso # Seg Neutrophils % Seg Neuts % (Manual) Lymphocytes % (Manual) Seg Neutrophils # Seg Neutrophils # Man Lymphocytes # (Manual) Monocytes # (Manual) APTT POC ABG pH POC ABG pCO2 POC ABG pO2 Sodium Potassium Chloride Carbon Dioxide BUN Creatinine Glucose POC Glucose 124 H 241 H Calcium Phosphorus Lactate Dehydrogenase Total Creatine Kinase NT-Pro-B Natriuret Pep Albumin Ngocy-5-Yzjuhmsdh Dmjzw-7-Jqwdyqejg Beta Globulins PEP Interpretation Cholesterol LDL Cholesterol Direct 03/27/16 03/27/16 03/28/16 16:39 22:03 03:29 WBC RBC Hgb Hct MCV MCH MCHC Plt Count Lymph % (Auto) [place] % (Auto) Lymph # [place] # Baso # Seg Neutrophils % Seg Neuts % (Manual) Lymphocytes % (Manual) Seg Neutrophils # Seg Neutrophils # Man Lymphocytes # (Manual) Monocytes # (Manual) APTT POC ABG pH POC ABG pCO2 POC ABG pO2 Sodium Potassium Chloride Carbon Dioxide BUN Creatinine Glucose POC Glucose 266 H 167 H 241 H Calcium Phosphorus Lactate Dehydrogenase Total Creatine Kinase NT-Pro-B Natriuret Pep Albumin Ldfap-9-Fgrojymyn Sppth-6-Duzfaumnf Beta Globulins PEP Interpretation Cholesterol LDL Cholesterol Direct 03/28/16 03/28/16 03/28/16 05:00 05:00 05:00 WBC RBC Hgb Hct MCV 83 L MCH 27 L MCHC Plt Count 106 L Lymph % (Auto) [place] % (Auto) 10.1 H Lymph # [place] # 1.0 H Baso # Seg Neutrophils % 75.1 H Seg Neuts % (Manual) Lymphocytes % (Manual) Seg Neutrophils # Seg Neutrophils # Man Lymphocytes # (Manual) Monocytes # (Manual) APTT POC ABG pH POC ABG pCO2 POC ABG pO2 Sodium 147 H D Potassium 3.1 L D Chloride 112.3 H Carbon Dioxide 21 L BUN Creatinine Glucose 208 H POC Glucose Calcium 7.0 L Phosphorus 2.2 L Lactate Dehydrogenase Total Creatine Kinase NT-Pro-B Natriuret Pep Albumin Unqmo-1-Zkiwymydk Obtvp-5-Ycknabnfn Beta Globulins PEP Interpretation Cholesterol LDL Cholesterol Direct 03/28/16 03/28/16 03/28/16 05:14 08:41 10:56 WBC RBC Hgb Hct MCV MCH MCHC Plt Count Lymph % (Auto) [place] % (Auto) Lymph # [place] # Baso # Seg Neutrophils % Seg Neuts % (Manual) Lymphocytes % (Manual) Seg Neutrophils # Seg Neutrophils # Man Lymphocytes # (Manual) Monocytes # (Manual) APTT POC ABG pH 7.457 H POC ABG pCO2 29.7 L 27.7 L POC ABG pO2 Sodium Potassium Chloride Carbon Dioxide BUN Creatinine Glucose POC Glucose 228 H Calcium Phosphorus Lactate Dehydrogenase Total Creatine Kinase NT-Pro-B Natriuret Pep Albumin Yyodm-1-Xkkhowpgx Fmmux-6-[place]agvfv Beta Globulins PEP Interpretation Cholesterol LDL Cholesterol Direct 03/28/16 03/28/16 03/28/16 11:37 13:29 16:22 WBC RBC Hgb Hct MCV MCH MCHC Plt Count Lymph % (Auto) [place] % (Auto) Lymph # [place] # Baso # Seg Neutrophils % Seg Neuts % (Manual) Lymphocytes % (Manual) Seg Neutrophils # Seg Neutrophils # Man Lymphocytes # (Manual) Monocytes # (Manual) APTT POC ABG pH POC ABG pCO2 POC ABG pO2 Sodium Potassium Chloride Carbon Dioxide BUN Creatinine Glucose POC Glucose 226 H 200 H Calcium Phosphorus Lactate Dehydrogenase Total Creatine Kinase 356 H NT-Pro-B Natriuret Pep Albumin Vxdda-8-Jfrejwbwl Ztotz-3-Oxsavyimk Beta Globulins PEP Interpretation Cholesterol LDL Cholesterol Direct 03/28/16 03/29/16 03/29/16 21:48 04:50 04:50 WBC RBC Hgb 11.5 L Hct 35.3 L MCV 81 L MCH 26 L MCHC Plt Count 97 L Lymph % (Auto) [place] % (Auto) 11.7 H Lymph # [place] # 1.1 H Baso # Seg Neutrophils % Seg Neuts % (Manual) Lymphocytes % (Manual) Seg Neutrophils # Seg Neutrophils # Man Lymphocytes # (Manual) Monocytes # (Manual) APTT POC ABG pH POC ABG pCO2 POC ABG pO2 Sodium 136 L D Potassium 3.3 L Chloride Carbon Dioxide 20 L BUN Creatinine Glucose 386 H POC Glucose 188 H Calcium 6.8 L Phosphorus 1.6 L D Lactate Dehydrogenase Total Creatine Kinase NT-Pro-B Natriuret Pep Albumin Ofzbo-9-Ujvhmlhjq Iftsc-6-Nieefljro Beta Globulins PEP Interpretation Cholesterol LDL Cholesterol Direct 03/29/16 03/29/16 03/29/16 08:10 11:12 16:09 WBC RBC Hgb Hct MCV MCH MCHC Plt Count Lymph % (Auto) [place] % (Auto) Lymph # [place] # Baso # Seg Neutrophils % Seg Neuts % (Manual) Lymphocytes % (Manual) Seg Neutrophils # Seg Neutrophils # Man Lymphocytes # (Manual) Monocytes # (Manual) APTT POC ABG pH POC ABG pCO2 POC ABG pO2 Sodium Potassium Chloride Carbon Dioxide BUN Creatinine Glucose POC Glucose 230 H 180 H 46 L Calcium Phosphorus Lactate Dehydrogenase Total Creatine Kinase NT-Pro-B Natriuret Pep Albumin Obtux-7-Ckfzpfkid Wqyap-7-Atdipyerk Beta Globulins PEP Interpretation Cholesterol LDL Cholesterol Direct 03/29/16 03/29/16 03/30/16 16:12 18:15 02:53 WBC RBC Hgb Hct MCV MCH MCHC Plt Count Lymph % (Auto) [place] % (Auto) Lymph # [place] # Baso # Seg Neutrophils % Seg Neuts % (Manual) Lymphocytes % (Manual) Seg Neutrophils # Seg Neutrophils # Man Lymphocytes # (Manual) Monocytes # (Manual) APTT POC ABG pH POC ABG pCO2 POC ABG pO2 Sodium Potassium Chloride Carbon Dioxide BUN Creatinine Glucose POC Glucose 52 L 118 H 130 H Calcium Phosphorus Lactate Dehydrogenase Total Creatine Kinase NT-Pro-B Natriuret Pep Albumin Zqocn-2-Juirovidr Wlzhb-7-Zmmvohbfa Beta Globulins PEP Interpretation Cholesterol LDL Cholesterol Direct 03/30/16 03/30/16 03/30/16 04:00 04:00 05:29 WBC RBC Hgb Hct MCV 81 L MCH 26 L MCHC Plt Count 116 L Lymph % (Auto) 10.8 L [place] % (Auto) 13.1 H Lymph # 1.0 L [place] # 1.3 H Baso # Seg Neutrophils % 74.2 H Seg Neuts % (Manual) Lymphocytes % (Manual) Seg Neutrophils # Seg Neutrophils # Man Lymphocytes # (Manual) Monocytes # (Manual) APTT POC ABG pH 7.522 H POC ABG pCO2 22.7 L POC ABG pO2 137 H Sodium 147 H D Potassium Chloride 115.5 H Carbon Dioxide 20 L BUN Creatinine Glucose 116 H POC Glucose Calcium 7.6 L Phosphorus 2.3 L D Lactate Dehydrogenase Total Creatine Kinase NT-Pro-B Natriuret Pep Albumin Kwabq-6-Cngctedbh Ikeka-7-Deowuadgg Beta Globulins PEP Interpretation Cholesterol LDL Cholesterol Direct 03/30/16 03/30/16 03/30/16 05:47 08:05 08:59 WBC RBC Hgb Hct MCV MCH MCHC Plt Count Lymph % (Auto) [place] % (Auto) Lymph # [place] # Baso # Seg Neutrophils % Seg Neuts % (Manual) Lymphocytes % (Manual) Seg Neutrophils # Seg Neutrophils # Man Lymphocytes # (Manual) Monocytes # (Manual) APTT POC ABG pH POC ABG pCO2 26.2 L POC ABG pO2 115 H Sodium Potassium Chloride Carbon Dioxide BUN Creatinine Glucose POC Glucose 138 H 171 H Calcium Phosphorus Lactate Dehydrogenase Total Creatine Kinase NT-Pro-B Natriuret Pep Albumin Kxcky-6-Sucwpmoaq Fmwka-0-Sytfccipv Beta Globulins PEP Interpretation Cholesterol LDL Cholesterol Direct 03/30/16 03/30/16 03/30/16 12:11 12:11 16:39 WBC RBC Hgb Hct MCV MCH MCHC Plt Count Lymph % (Auto) [place] % (Auto) Lymph # [place] # Baso # Seg Neutrophils % Seg Neuts % (Manual) Lymphocytes % (Manual) Seg Neutrophils # Seg Neutrophils # Man Lymphocytes # (Manual) Monocytes # (Manual) APTT POC ABG pH 7.476 H POC ABG pCO2 29.0 L POC ABG pO2 Sodium Potassium Chloride Carbon Dioxide BUN Creatinine Glucose POC Glucose 142 H 59 L Calcium Phosphorus Lactate Dehydrogenase Total Creatine Kinase NT-Pro-B Natriuret Pep Albumin Jushj-9-Fkwypcylm Mhunh-4-Hnazppfhx Beta Globulins PEP Interpretation Cholesterol LDL Cholesterol Direct 03/30/16 03/30/1616 18:41 21:59 05:02 WBC RBC Hgb Hct MCV MCH MCHC Plt Count Lymph % (Auto) [place] % (Auto) Lymph # [place] # Baso # Seg Neutrophils % Seg Neuts % (Manual) Lymphocytes % (Manual) Seg Neutrophils # Seg Neutrophils # Man Lymphocytes # (Manual) Monocytes # (Manual) APTT POC ABG pH 7.519 H POC ABG pCO2 21.8 L POC ABG pO2 142 H Sodium Potassium Chloride Carbon Dioxide BUN Creatinine Glucose POC Glucose 145 H 154 H Calcium Phosphorus Lactate Dehydrogenase Total Creatine Kinase NT-Pro-B Natriuret Pep Albumin Zdtic-4-Isymkitxt Qouvj-9-Zdrfuamig Beta Globulins PEP Interpretation Cholesterol LDL Cholesterol Direct 03/31/16 03/31/16 03/31/16 05:15 05:15 05:15 WBC 13.4 H RBC 5.21 H Hgb Hct MCV 81 L MCH 26 L MCHC Plt Count Lymph % (Auto) 9.5 L [place] % (Auto) 14.0 H Lymph # [place] # 1.9 H Baso # Seg Neutrophils % 75.0 H Seg Neuts % (Manual) Lymphocytes % (Manual) Seg Neutrophils # 10.1 H Seg Neutrophils # Man Lymphocytes # (Manual) Monocytes # (Manual) APTT POC ABG pH POC ABG pCO2 POC ABG pO2 Sodium Potassium Chloride 108.5 H Carbon Dioxide 19 L BUN Creatinine Glucose 188 H POC Glucose Calcium Phosphorus Lactate Dehydrogenase Total Creatine Kinase NT-Pro-B Natriuret Pep 1089 H Albumin Nlzpr-7-Nesmobmvg Pcghp-0-Bfwthydcz Beta Globulins PEP Interpretation Cholesterol LDL Cholesterol Direct 03/31/16 03/31/16 03/31/16 07:23 11:12 15:20 WBC RBC Hgb Hct MCV MCH MCHC Plt Count Lymph % (Auto) [place] % (Auto) Lymph # [place] # Baso # Seg Neutrophils % Seg Neuts % (Manual) Lymphocytes % (Manual) Seg Neutrophils # Seg Neutrophils # Man Lymphocytes # (Manual) Monocytes # (Manual) APTT POC ABG pH POC ABG pCO2 POC ABG pO2 Sodium Potassium Chloride Carbon Dioxide BUN Creatinine Glucose POC Glucose 233 H 228 H 208 H Calcium Phosphorus Lactate Dehydrogenase Total Creatine Kinase NT-Pro-B Natriuret Pep Albumin Fzlwg-1-[place] Zehug-5-Bhbckanbn Beta Globulins PEP Interpretation Cholesterol LDL Cholesterol Direct 03/31/16 04/01/1604/01/16 21:27 04:41 05:35 WBC 12.1 H RBC Hgb Hct MCV 81 L MCH 26 L MCHC Plt Count Lymph % (Auto) 8.5 L [place] % (Auto) 14.0 H Lymph # 1.0 L [place] # 1.7 H Baso # Seg Neutrophils % 76.2 H Seg Neuts % (Manual) Lymphocytes % (Manual) Seg Neutrophils # 9.2 H Seg Neutrophils # Man Lymphocytes # (Manual) Monocytes # (Manual) APTT POC ABG pH 7.455 H POC ABG pCO2 31.0 L POC ABG pO2 Sodium Potassium Chloride Carbon Dioxide BUN Creatinine Glucose POC Glucose 162 H Calcium Phosphorus Lactate Dehydrogenase Total Creatine Kinase NT-Pro-B Natriuret Pep Albumin Ighym-3-Foadqvynu Wmtnt-0-Bfviojybp Beta Globulins PEP Interpretation Cholesterol LDL Cholesterol Direct 04/01/16 04/01/16 04/01/16 05:35 08:44 12:49 WBC RBC Hgb Hct MCV MCH MCHC Plt Count Lymph % (Auto) [place] % (Auto) Lymph # [place] # Baso # Seg Neutrophils % Seg Neuts % (Manual) Lymphocytes % (Manual) Seg Neutrophils # Seg Neutrophils # Man Lymphocytes # (Manual) Monocytes # (Manual) APTT POC ABG pH POC ABG pCO2 POC ABG pO2 Sodium Potassium Chloride Carbon Dioxide BUN Creatinine Glucose 256 H POC Glucose 257 H 279 H Calcium 8.0 L Phosphorus Lactate Dehydrogenase Total Creatine Kinase NT-Pro-B Natriuret Pep 1205 H Albumin Urnmj-1-Tgesaqwpk Sjuwt-5-Onicdvvrd Beta Globulins PEP Interpretation Cholesterol LDL Cholesterol Direct 04/01/16 04/02/16 04/02/16 18:12 00:42 04:17 WBC RBC Hgb Hct MCV MCH MCHC Plt Count Lymph % (Auto) [place] % (Auto) Lymph # [place] # Baso # Seg Neutrophils % Seg Neuts % (Manual) Lymphocytes % (Manual) Seg Neutrophils # Seg Neutrophils # Man Lymphocytes # (Manual) Monocytes # (Manual) APTT POC ABG pH 7.582 H POC ABG pCO2 26.8 L POC ABG pO2 Sodium Potassium Chloride Carbon Dioxide BUN Creatinine Glucose POC Glucose 168 H 282 H Calcium Phosphorus Lactate Dehydrogenase Total Creatine Kinase NT-Pro-B Natriuret Pep Albumin Uxzun-8-Mvfkurffs Aldjp-5-Xwdsdbgcx Beta Globulins PEP Interpretation Cholesterol LDL Cholesterol Direct 04/02/16 04/02/16 04/02/16 05:00 05:00 06:27 WBC 12.4 H RBC Hgb Hct MCV 81 L MCH 26 L MCHC Plt Count Lymph % (Auto) 6.4 L [place] % (Auto) 13.3 H Lymph # 0.8 L [place] # 1.7 H Baso # Seg Neutrophils % 79.4 H Seg Neuts % (Manual) Lymphocytes % (Manual) Seg Neutrophils # 9.9 H Seg Neutrophils # Man Lymphocytes # (Manual) Monocytes # (Manual) APTT POC ABG pH POC ABG pCO2 POC ABG pO2 Sodium 146 H Potassium Chloride Carbon Dioxide BUN Creatinine Glucose 334 H POC Glucose 317 H Calcium 8.0 L Phosphorus Lactate Dehydrogenase Total Creatine Kinase NT-Pro-B Natriuret Pep Albumin Zvmep-4-Jzouvhjnv Cutcj-9-Pijggdbpe Beta Globulins PEP Interpretation Cholesterol LDL Cholesterol Direct 04/02/16 04/02/16 04/02/16 11:51 13:10 17:24 WBC RBC Hgb Hct MCV MCH MCHC Plt Count Lymph % (Auto) [place] % (Auto) Lymph # [place] # Baso # Seg Neutrophils % Seg Neuts % (Manual) Lymphocytes % (Manual) Seg Neutrophils # Seg Neutrophils # Man Lymphocytes # (Manual) Monocytes # (Manual) APTT POC ABG pH 7.518 H POC ABG pCO2 POC ABG pO2 Sodium Potassium Chloride Carbon Dioxide BUN Creatinine Glucose POC Glucose 278 H 195 H Calcium Phosphorus Lactate Dehydrogenase Total Creatine Kinase NT-Pro-B Natriuret Pep Albumin Vtzix-3-Duunbunrz Hngak-4-Hnacwzrvi Beta Globulins PEP Interpretation Cholesterol LDL Cholesterol Direct 04/03/16 04/03/16 04/03/16 00:18 04:10 04:10 WBC 14.3 H RBC Hgb Hct MCV 81 L MCH 26 L MCHC Plt Count Lymph % (Auto) 9.0 L [place] % (Auto) 10.7 H Lymph # [place] # 1.5 H Baso # 0.2 H Seg Neutrophils % 78.5 H Seg Neuts % (Manual) Lymphocytes % (Manual) Seg Neutrophils # 11.3 H Seg Neutrophils # Man Lymphocytes # (Manual) Monocytes # (Manual) APTT POC ABG pH POC ABG pCO2 POC ABG pO2 Sodium 148 H Potassium Chloride 108.1 H Carbon Dioxide BUN 21 H Creatinine Glucose 227 H POC Glucose 144 H Calcium 8.2 L Phosphorus Lactate Dehydrogenase Total Creatine Kinase NT-Pro-B Natriuret Pep Albumin Mcvwh-2-Saovsohjd Sxbuk-7-Nejtncohe Beta Globulins PEP Interpretation Cholesterol LDL Cholesterol Direct 04/03/16 04/03/16 04/04/16 11:14 17:10 04:00 WBC 14.5 H RBC Hgb Hct MCV 81 L MCH 26 L MCHC Plt Count Lymph % (Auto) 7.2 L [place] % (Auto) 7.6 H Lymph # 1.0 L [place] # 1.1 H Baso # Seg Neutrophils % 84.5 H Seg Neuts % (Manual) Lymphocytes % (Manual) Seg Neutrophils # 12.3 H Seg Neutrophils # Man Lymphocytes # (Manual) Monocytes # (Manual) APTT POC ABG pH POC ABG pCO2 POC ABG pO2 Sodium Potassium Chloride Carbon Dioxide BUN Creatinine Glucose POC Glucose 267 H 212 H Calcium Phosphorus Lactate Dehydrogenase Total Creatine Kinase NT-Pro-B Natriuret Pep Albumin Ealhu-3-Fpjbfzgys Dsshi-6-Xpcibmlgc Beta Globulins PEP Interpretation Cholesterol LDL Cholesterol Direct 04/04/16 04/04/16 04/04/16 05:00 09:55 09:55 WBC RBC Hgb 11.5 L Hct MCV MCH MCHC Plt Count Lymph % (Auto) [place] % (Auto) Lymph # [place] # Baso # Seg Neutrophils % Seg Neuts % (Manual) Lymphocytes % (Manual) Seg Neutrophils # Seg Neutrophils # Man Lymphocytes # (Manual) Monocytes # (Manual) APTT 42.1 H POC ABG pH POC ABG pCO2 POC ABG pO2 Sodium 146 H Potassium Chloride Carbon Dioxide BUN 22 H Creatinine Glucose 128 H POC Glucose Calcium Phosphorus Lactate Dehydrogenase Total Creatine Kinase NT-Pro-B Natriuret Pep Albumin Kgodt-4-Nnrupthfq Yhenm-3-Yodugdjdj Beta Globulins PEP Interpretation Cholesterol LDL Cholesterol Direct Chest x-ray: report reviewed, image reviewed ([email or web address])
[2016-04-05] MEDS: NOVOLOG SUB-Q SCH ×5 (00:01→23:55)
[2016-04-05 06:27] LABS: ISTAT Base Excess 9; ISTAT HCO3 32.3; ISTAT PCO2 42.3 (35-45); ISTAT PH 7.491 (7.35-7.45); ISTAT PO2 90 (80-105); ISTAT SO2 98; ISTAT TCO2 34
[2016-04-05 06:49] LABS: Basophils % (Auto) 0.4 % (0.0-1.8); Eosinophils % (Auto) 0.4 % (0.0-4.3); Hematocrit 36.7 % (35.5-45.6); Hemoglobin 11.6 gm/dl (11.8-15.2); Mean Corpuscular HGB Conc 32 % (32-34); Mean Corpuscular Volume 81 fl (84-94); Platelet Count 334 K/mm3 (140-440); Red Blood Count 4.51 M/mm3 (3.65-5.03); Red Cell Distribution Width 14.9 % (13.2-15.2); White Blood Count 13.9 K/mm3 (4.5-11.0)
[2016-04-05 07:00] LABS: Mean Corpuscular Hemoglobin 26 pg (28-32)
[2016-04-05 07:10] LABS: Blood Urea Nitrogen 23 mg/dL (9-20); Calcium 8.5 mg/dL (8.4-10.2); Carbon Dioxide 30 mmol/L (22-30); Chloride 106.2 mmol/L (98-107); Glucose 242 mg/dL (75-100); Potassium 4.3 mmol/L (3.6-5.0); Sodium 148 mmol/L (137-145)
[2016-04-05 07:13] LABS: Anion Gap 16 mmol/L
--- NOTE | 2016-04-05 09:02 | Progress Note ---
Assessment and Plan 61 y/o male with acute encephalopathy, causing acute respiratory failure, etiology of encephalopathy unknown at this time with persistent hypertension and improving renal failure. 1. Follow up cards recs 2. Continue supplemental O2 3. Nurse to finish her assessment. It appears that patient is stable for floor but will discuss with her first. Subjective Date of service: 04/05/16 Interval history: No acute events. Awake. Drooling. On oxygen. NPO for LIZZIE but not able to reach family for consent. Patient is extubated. Objective Vital Signs - 12hr 04/04/16 04/04/16 04/04/16 21:00 22:00 22:30 Temperature Pulse Rate 87 88 90 Respiratory 21 19 Rate Blood Pressure 155/104 172/102 176/98 O2 Sat by Pulse 96 94 Oximetry 04/04/16 04/05/16 04/05/16 23:00 00:00 01:00 Temperature 98.8 F Pulse Rate 84 86 83 Respiratory 13 20 22 Rate Blood Pressure 176/98 170/97 162/90 O2 Sat by Pulse 93 94 93 Oximetry 04/05/16 04/05/16 04/05/16 02:00 03:00 03:42 Temperature Pulse Rate 83 86 81 Respiratory 23 21 22 Rate Blood Pressure 156/95 164/99 164/99 O2 Sat by Pulse 94 92 98 Oximetry 04/05/16 04/05/16 04/05/16 04:00 05:00 05:16 Temperature Pulse Rate 83 84 85 Respiratory 22 22 23 Rate Blood Pressure 147/99 147/99 133/89 O2 Sat by Pulse 98 96 97 Oximetry 04/05/16 04/05/16 04/05/16 05:53 06:00 07:13 Temperature 98.7 F Pulse Rate 83 Respiratory 20 Rate Blood Pressure 184/112 O2 Sat by Pulse 95 99 Oximetry Constitutional: no acute distress, other (follow commands) Eyes: non-icteric Neck: supple Effort: normal Ascultation: Bilateral: clear Percussion: Bilateral: not dull Cardiovascular: regular rate and rhythm, irregular rhythm Gastrointestinal: normoactive bowel sounds, soft, non-tender Extremities: no cyanosis, no edema Neurologic: other (RASS 0 ) CBC and BMP: 04/05/16 06:20 04/05/16 06:20 ABG, PT/INR, D-dimer: ABG POC ABG pH 7.491 (7.35-7.45) H 04/05/16 05:32 POC ABG pCO2 42.3 (35-45) 04/05/16 05:32 POC ABG pO2 90 (80-105) 04/05/16 05:32 POC ABG HCO3 32.3 04/05/16 05:32 POC ABG Total CO2 34 04/05/16 05:32 POC ABG O2 Sat 98 04/05/16 05:32 PT/INR, D-dimer PT 13.5 Sec. (12.2-14.9) 04/04/16 09:55 INR 1.04 (0.87-1.13) 04/04/16 09:55 Abnormal lab findings: Abnormal Labs 03/24/16 03/24/16 03/24/16 17:58 20:25 23:23 WBC RBC Hgb Hct MCV MCH MCHC Plt Count Lymph % (Auto) [place] % (Auto) Lymph # [place] # Baso # Seg Neutrophils % Seg Neuts % (Manual) Lymphocytes % (Manual) Seg Neutrophils # Seg Neutrophils # Man Lymphocytes # (Manual) Monocytes # (Manual) APTT Heparin Anti-Xa Level POC ABG pH POC ABG pCO2 POC ABG pO2 Sodium 169 H* Potassium 3.5 L Chloride 130.3 H Carbon Dioxide BUN 28 H Creatinine 1.8 H Glucose POC Glucose 112 H Calcium Phosphorus Lactate Dehydrogenase Total Creatine Kinase NT-Pro-B Natriuret Pep Albumin Mrpco-6-Chjcxtikz Slgoc-7-Swvbnvksy Beta Globulins PEP Interpretation Cholesterol 221 H LDL Cholesterol Direct 146 H 03/25/16 03/25/16 03/25/16 05:56 05:56 05:56 WBC 21.3 H RBC 6.32 H Hgb 16.7 H Hct 52.7 H MCV 83 L MCH 27 L MCHC Plt Count Lymph % (Auto) [place] % (Auto) Lymph # [place] # Baso # Seg Neutrophils % Seg Neuts % (Manual) 91.0 H Lymphocytes % (Manual) 4.0 L Seg Neutrophils # Seg Neutrophils # Man 19.4 H Lymphocytes # (Manual) 0.9 L Monocytes # (Manual) 0.9 H APTT Heparin Anti-Xa Level POC ABG pH POC ABG pCO2 POC ABG pO2 Sodium 172 H* Potassium 3.5 L Chloride 130.4 H Carbon Dioxide BUN 29 H Creatinine 1.8 H Glucose 187 H POC Glucose Calcium Phosphorus Lactate Dehydrogenase 460 H Total Creatine Kinase NT-Pro-B Natriuret Pep Albumin Qiqcr-8-Dmxujbtud Onhlu-8-Omyeqkzww Beta Globulins PEP Interpretation Cholesterol LDL Cholesterol Direct 03/25/16 03/25/16 03/25/16 07:55 12:19 13:00 WBC RBC Hgb Hct MCV MCH MCHC Plt Count Lymph % (Auto) [place] % (Auto) Lymph # [place] # Baso # Seg Neutrophils % Seg Neuts % (Manual) Lymphocytes % (Manual) Seg Neutrophils # Seg Neutrophils # Man Lymphocytes # (Manual) Monocytes # (Manual) APTT Heparin Anti-Xa Level POC ABG pH POC ABG pCO2 POC ABG pO2 Sodium Potassium Chloride Carbon Dioxide BUN Creatinine Glucose POC Glucose 231 H 314 H Calcium Phosphorus Lactate Dehydrogenase Total Creatine Kinase NT-Pro-B Natriuret Pep Albumin 3.4 L Nqkcq-6-Njjuidlho 0.4 H Hefdt-3-Etlxubiqa 1.1 H Beta Globulins 0.6 H PEP Interpretation see below H Cholesterol LDL Cholesterol Direct 03/25/16 03/25/16 03/26/16 16:41 22:45 08:32 WBC RBC Hgb Hct MCV MCH MCHC Plt Count Lymph % (Auto) [place] % (Auto) Lymph # [place] # Baso # Seg Neutrophils % Seg Neuts % (Manual) Lymphocytes % (Manual) Seg Neutrophils # Seg Neutrophils # Man Lymphocytes # (Manual) Monocytes # (Manual) APTT Heparin Anti-Xa Level POC ABG pH POC ABG pCO2 POC ABG pO2 Sodium Potassium Chloride Carbon Dioxide BUN Creatinine Glucose POC Glucose 444 H 326 H 360 H Calcium Phosphorus Lactate Dehydrogenase Total Creatine Kinase NT-Pro-B Natriuret Pep Albumin Qnszw-3-Rfdglwzmx Bmdrw-9-Yqovvsdcl Beta Globulins PEP Interpretation Cholesterol LDL Cholesterol Direct 03/26/16 03/26/16 03/26/16 12:38 15:33 15:47 WBC RBC Hgb Hct MCV MCH MCHC Plt Count Lymph % (Auto) [place] % (Auto) Lymph # [place] # Baso # Seg Neutrophils % Seg Neuts % (Manual) Lymphocytes % (Manual) Seg Neutrophils # Seg Neutrophils # Man Lymphocytes # (Manual) Monocytes # (Manual) APTT Heparin Anti-Xa Level POC ABG pH 7.511 H POC ABG pCO2 26.5 L POC ABG pO2 70 L Sodium Potassium Chloride Carbon Dioxide BUN Creatinine Glucose POC Glucose 280 H 174 H Calcium Phosphorus Lactate Dehydrogenase Total Creatine Kinase NT-Pro-B Natriuret Pep Albumin Olfxj-9-Ekscoyeed Pergb-5-Bjgbmcnae Beta Globulins PEP Interpretation Cholesterol LDL Cholesterol Direct 03/26/16 03/26/16 03/26/16 16:47 16:47 18:51 WBC 14.0 H RBC 5.17 H Hgb Hct MCV MCH 26 L MCHC 31 L Plt Count 139 L Lymph % (Auto) [place] % (Auto) Lymph # [place] # Baso # Seg Neutrophils % Seg Neuts % (Manual) Lymphocytes % (Manual) Seg Neutrophils # Seg Neutrophils # Man Lymphocytes # (Manual) Monocytes # (Manual) APTT Heparin Anti-Xa Level POC ABG pH POC ABG pCO2 33.9 L POC ABG pO2 150 H Sodium 164 H* Potassium 3.4 L Chloride 128.5 H Carbon Dioxide BUN 30 H Creatinine 2.2 H Glucose 121 H POC Glucose Calcium 8.1 L Phosphorus Lactate Dehydrogenase Total Creatine Kinase NT-Pro-B Natriuret Pep Albumin Shtcr-2-Oacdxaezg Xevcv-1-Finlafgnk Beta Globulins PEP Interpretation Cholesterol LDL Cholesterol Direct 03/27/16 03/27/16 03/27/16 02:19 05:47 06:02 WBC RBC Hgb Hct MCV MCH MCHC Plt Count Lymph % (Auto) [place] % (Auto) Lymph # [place] # Baso # Seg Neutrophils % Seg Neuts % (Manual) Lymphocytes % (Manual) Seg Neutrophils # Seg Neutrophils # Man Lymphocytes # (Manual) Monocytes # (Manual) APTT Heparin Anti-Xa Level POC ABG pH POC ABG pCO2 27.3 L 30.3 L POC ABG pO2 50 L 112 H Sodium 158 H Potassium Chloride 126.7 H Carbon Dioxide 20 L BUN 25 H Creatinine 1.7 H Glucose POC Glucose Calcium 7.0 L Phosphorus Lactate Dehydrogenase Total Creatine Kinase NT-Pro-B Natriuret Pep Albumin Kavtl-7-Evtirlgch Ixgmr-9-Wwovnzfkb Beta Globulins PEP Interpretation Cholesterol LDL Cholesterol Direct 03/27/16 03/27/16 03/27/16 07:51 09:20 11:45 WBC 14.2 H RBC Hgb Hct MCV 83 L MCH 27 L MCHC Plt Count 113 L Lymph % (Auto) [place] % (Auto) Lymph # [place] # Baso # Seg Neutrophils % Seg Neuts % (Manual) Lymphocytes % (Manual) Seg Neutrophils # Seg Neutrophils # Man Lymphocytes # (Manual) Monocytes # (Manual) APTT Heparin Anti-Xa Level POC ABG pH POC ABG pCO2 POC ABG pO2 Sodium Potassium Chloride Carbon Dioxide BUN Creatinine Glucose POC Glucose 124 H 241 H Calcium Phosphorus Lactate Dehydrogenase Total Creatine Kinase NT-Pro-B Natriuret Pep Albumin Rnyjt-3-Rgralauaa Aahgw-7-Ccajeygvr Beta Globulins PEP Interpretation Cholesterol LDL Cholesterol Direct 03/27/16 03/27/16 03/28/16 16:39 22:03 03:29 WBC RBC Hgb Hct MCV MCH MCHC Plt Count Lymph % (Auto) [place] % (Auto) Lymph # [place] # Baso # Seg Neutrophils % Seg Neuts % (Manual) Lymphocytes % (Manual) Seg Neutrophils # Seg Neutrophils # Man Lymphocytes # (Manual) Monocytes # (Manual) APTT Heparin Anti-Xa Level POC ABG pH POC ABG pCO2 POC ABG pO2 Sodium Potassium Chloride Carbon Dioxide BUN Creatinine Glucose POC Glucose 266 H 167 H 241 H Calcium Phosphorus Lactate Dehydrogenase Total Creatine Kinase NT-Pro-B Natriuret Pep Albumin Deyvp-0-Cxizjyctm Vmxhh-5-Qhvgpciqn Beta Globulins PEP Interpretation Cholesterol LDL Cholesterol Direct 03/28/16 03/28/16 03/28/16 05:00 05:00 05:00 WBC RBC Hgb Hct MCV 83 L MCH 27 L MCHC Plt Count 106 L Lymph % (Auto) [place] % (Auto) 10.1 H Lymph # [place] # 1.0 H Baso # Seg Neutrophils % 75.1 H Seg Neuts % (Manual) Lymphocytes % (Manual) Seg Neutrophils # Seg Neutrophils # Man Lymphocytes # (Manual) Monocytes # (Manual) APTT Heparin Anti-Xa Level POC ABG pH POC ABG pCO2 POC ABG pO2 Sodium 147 H D Potassium 3.1 L D Chloride 112.3 H Carbon Dioxide 21 L BUN Creatinine Glucose 208 H POC Glucose Calcium 7.0 L Phosphorus 2.2 L Lactate Dehydrogenase Total Creatine Kinase NT-Pro-B Natriuret Pep Albumin Dddwa-0-Dsjpiytzx Eevzm-1-Lzlavixof Beta Globulins PEP Interpretation Cholesterol LDL Cholesterol Direct 03/28/16 03/28/16 03/28/16 05:14 08:41 10:56 WBC RBC Hgb Hct MCV MCH MCHC Plt Count Lymph % (Auto) [place] % (Auto) Lymph # [place] # Baso # Seg Neutrophils % Seg Neuts % (Manual) Lymphocytes % (Manual) Seg Neutrophils # Seg Neutrophils # Man Lymphocytes # (Manual) Monocytes # (Manual) APTT Heparin Anti-Xa Level POC ABG pH 7.457 H POC ABG pCO2 29.7 L 27.7 L POC ABG pO2 Sodium Potassium Chloride Carbon Dioxide BUN Creatinine Glucose POC Glucose 228 H Calcium Phosphorus Lactate Dehydrogenase Total Creatine Kinase NT-Pro-B Natriuret Pep Albumin Zayxx-1-Wzqkjzwcb Lwnxx-6-Ydtbwvexw Beta Globulins PEP Interpretation Cholesterol LDL Cholesterol Direct 03/28/16 03/28/16 03/28/16 11:37 13:29 16:22 WBC RBC Hgb Hct MCV MCH MCHC Plt Count Lymph % (Auto) [place] % (Auto) Lymph # [place] # Baso # Seg Neutrophils % Seg Neuts % (Manual) Lymphocytes % (Manual) Seg Neutrophils # Seg Neutrophils # Man Lymphocytes # (Manual) Monocytes # (Manual) APTT Heparin Anti-Xa Level POC ABG pH POC ABG pCO2 POC ABG pO2 Sodium Potassium Chloride Carbon Dioxide BUN Creatinine Glucose POC Glucose 226 H 200 H Calcium Phosphorus Lactate Dehydrogenase Total Creatine Kinase 356 H NT-Pro-B Natriuret Pep Albumin Nbygk-3-Cpnddwyys Jioph-1-Jieedpibj Beta Globulins PEP Interpretation Cholesterol LDL Cholesterol Direct 03/28/16 03/29/16 03/29/16 21:48 04:50 04:50 WBC RBC Hgb 11.5 L Hct 35.3 L MCV 81 L MCH 26 L MCHC Plt Count 97 L Lymph % (Auto) [place] % (Auto) 11.7 H Lymph # [place] # 1.1 H Baso # Seg Neutrophils % Seg Neuts % (Manual) Lymphocytes % (Manual) Seg Neutrophils # Seg Neutrophils # Man Lymphocytes # (Manual) Monocytes # (Manual) APTT Heparin Anti-Xa Level POC ABG pH POC ABG pCO2 POC ABG pO2 Sodium 136 L D Potassium 3.3 L Chloride Carbon Dioxide 20 L BUN Creatinine Glucose 386 H POC Glucose 188 H Calcium 6.8 L Phosphorus 1.6 L D Lactate Dehydrogenase Total Creatine Kinase NT-Pro-B Natriuret Pep Albumin Pzlbu-5-Lpqdkjkyu Sidtf-2-Kbaveemqh Beta Globulins PEP Interpretation Cholesterol LDL Cholesterol Direct 03/29/16 03/29/16 03/29/16 08:10 11:12 16:09 WBC RBC Hgb Hct MCV MCH MCHC Plt Count Lymph % (Auto) [place] % (Auto) Lymph # [place] # Baso # Seg Neutrophils % Seg Neuts % (Manual) Lymphocytes % (Manual) Seg Neutrophils # Seg Neutrophils # Man Lymphocytes # (Manual) Monocytes # (Manual) APTT Heparin Anti-Xa Level POC ABG pH POC ABG pCO2 POC ABG pO2 Sodium Potassium Chloride Carbon Dioxide BUN Creatinine Glucose POC Glucose 230 H 180 H 46 L Calcium Phosphorus Lactate Dehydrogenase Total Creatine Kinase NT-Pro-B Natriuret Pep Albumin Zhhtt-1-Mafaxgphp Tdsde-0-Lldzasvaz Beta Globulins PEP Interpretation Cholesterol LDL Cholesterol Direct 03/29/16 03/29/16 03/30/16 16:12 18:15 02:53 WBC RBC Hgb Hct MCV MCH MCHC Plt Count Lymph % (Auto) [place] % (Auto) Lymph # [place] # Baso # Seg Neutrophils % Seg Neuts % (Manual) Lymphocytes % (Manual) Seg Neutrophils # Seg Neutrophils # Man Lymphocytes # (Manual) Monocytes # (Manual) APTT Heparin Anti-Xa Level POC ABG pH POC ABG pCO2 POC ABG pO2 Sodium Potassium Chloride Carbon Dioxide BUN Creatinine Glucose POC Glucose 52 L 118 H 130 H Calcium Phosphorus Lactate Dehydrogenase Total Creatine Kinase NT-Pro-B Natriuret Pep Albumin Uwxsj-3-Xlptbaolj Gptwv-3-Haxiwlvbk Beta Globulins PEP Interpretation Cholesterol LDL Cholesterol Direct 03/30/16 03/30/16 03/30/16 04:00 04:00 05:29 WBC RBC Hgb Hct MCV 81 L MCH 26 L MCHC Plt Count 116 L Lymph % (Auto) 10.8 L [place] % (Auto) 13.1 H Lymph # 1.0 L [place] # 1.3 H Baso # Seg Neutrophils % 74.2 H Seg Neuts % (Manual) Lymphocytes % (Manual) Seg Neutrophils # Seg Neutrophils # Man Lymphocytes # (Manual) Monocytes # (Manual) APTT Heparin Anti-Xa Level POC ABG pH 7.522 H POC ABG pCO2 22.7 L POC ABG pO2 137 H Sodium 147 H D Potassium Chloride 115.5 H Carbon Dioxide 20 L BUN Creatinine Glucose 116 H POC Glucose Calcium 7.6 L Phosphorus 2.3 L D Lactate Dehydrogenase Total Creatine Kinase NT-Pro-B Natriuret Pep Albumin Dvenh-8-Wlrmuucrt Esgms-4-Xlrrptmwg Beta Globulins PEP Interpretation Cholesterol LDL Cholesterol Direct 03/30/16 03/30/16 03/30/16 05:47 08:05 08:59 WBC RBC Hgb Hct MCV MCH MCHC Plt Count Lymph % (Auto) [place] % (Auto) Lymph # [place] # Baso # Seg Neutrophils % Seg Neuts % (Manual) Lymphocytes % (Manual) Seg Neutrophils # Seg Neutrophils # Man Lymphocytes # (Manual) Monocytes # (Manual) APTT Heparin Anti-Xa Level POC ABG pH POC ABG pCO2 26.2 L POC ABG pO2 115 H Sodium Potassium Chloride Carbon Dioxide BUN Creatinine Glucose POC Glucose 138 H 171 H Calcium Phosphorus Lactate Dehydrogenase Total Creatine Kinase NT-Pro-B Natriuret Pep Albumin Nweel-8-Dllnasrzi Mjymk-3-Uihkgkqds Beta Globulins PEP Interpretation Cholesterol LDL Cholesterol Direct 03/30/16 03/30/16 03/30/16 12:11 12:11 16:39 WBC RBC Hgb Hct MCV MCH MCHC Plt Count Lymph % (Auto) [place] % (Auto) Lymph # [place] # Baso # Seg Neutrophils % Seg Neuts % (Manual) Lymphocytes % (Manual) Seg Neutrophils # Seg Neutrophils # Man Lymphocytes # (Manual) Monocytes # (Manual) APTT Heparin Anti-Xa Level POC ABG pH 7.476 H POC ABG pCO2 29.0 L POC ABG pO2 Sodium Potassium Chloride Carbon Dioxide BUN Creatinine Glucose POC Glucose 142 H 59 L Calcium Phosphorus Lactate Dehydrogenase Total Creatine Kinase NT-Pro-B Natriuret Pep Albumin Ldszp-1-Vsckgogov Kibqf-7-Ubzcblenq Beta Globulins PEP Interpretation Cholesterol LDL Cholesterol Direct 03/30/16 03/30/16 03/31/16 18:41 21:59 05:02 WBC RBC Hgb Hct MCV MCH MCHC Plt Count Lymph % (Auto) [place] % (Auto) Lymph # [place] # Baso # Seg Neutrophils % Seg Neuts % (Manual) Lymphocytes % (Manual) Seg Neutrophils # Seg Neutrophils # Man Lymphocytes # (Manual) Monocytes # (Manual) APTT Heparin Anti-Xa Level POC ABG pH 7.519 H POC ABG pCO2 21.8 L POC ABG pO2 142 H Sodium Potassium Chloride Carbon Dioxide BUN Creatinine Glucose POC Glucose 145 H 154 H Calcium Phosphorus Lactate Dehydrogenase Total Creatine Kinase NT-Pro-B Natriuret Pep Albumin Wixhg-4-Tjcoppsjj Exzii-6-Idiikuhct Beta Globulins PEP Interpretation Cholesterol LDL Cholesterol Direct 03/31/16 03/31/16 03/31/16 05:15 05:15 05:15 WBC 13.4 H RBC 5.21 H Hgb Hct MCV 81 L MCH 26 L MCHC Plt Count Lymph % (Auto) 9.5 L [place] % (Auto) 14.0 H Lymph # [place] # 1.9 H Baso # Seg Neutrophils % 75.0 H Seg Neuts % (Manual) Lymphocytes % (Manual) Seg Neutrophils # 10.1 H Seg Neutrophils # Man Lymphocytes # (Manual) Monocytes # (Manual) APTT Heparin Anti-Xa Level POC ABG pH POC ABG pCO2 POC ABG pO2 Sodium Potassium Chloride 108.5 H Carbon Dioxide 19 L BUN Creatinine Glucose 188 H POC Glucose Calcium Phosphorus Lactate Dehydrogenase Total Creatine Kinase NT-Pro-B Natriuret Pep 1089 H Albumin Fizbd-9-Yhitrcvfj Byidu-9-Lfyvvtuzm Beta Globulins PEP Interpretation Cholesterol LDL Cholesterol Direct 03/31/16 03/31/16 03/31/16 07:23 11:12 15:20 WBC RBC Hgb Hct MCV MCH MCHC Plt Count Lymph % (Auto) [place] % (Auto) Lymph # [place] # Baso # Seg Neutrophils % Seg Neuts % (Manual) Lymphocytes % (Manual) Seg Neutrophils # Seg Neutrophils # Man Lymphocytes # (Manual) Monocytes # (Manual) APTT Heparin Anti-Xa Level POC ABG pH POC ABG pCO2 POC ABG pO2 Sodium Potassium Chloride Carbon Dioxide BUN Creatinine Glucose POC Glucose 233 H 228 H 208 H Calcium Phosphorus Lactate Dehydrogenase Total Creatine Kinase NT-Pro-B Natriuret Pep Albumin Solei-6-Zqzlooglh Radmk-2-Affhhgxko Beta Globulins PEP Interpretation Cholesterol LDL Cholesterol Direct 03/31/16 04/01/16 04/01/16 21:27 04:41 05:35 WBC 12.1 H RBC Hgb Hct MCV 81 L MCH 26 L MCHC Plt Count Lymph % (Auto) 8.5 L [place] % (Auto) 14.0 H Lymph # 1.0 L [place] # 1.7 H Baso # Seg Neutrophils % 76.2 H Seg Neuts % (Manual) Lymphocytes % (Manual) Seg Neutrophils # 9.2 H Seg Neutrophils # Man Lymphocytes # (Manual) Monocytes # (Manual) APTT Heparin Anti-Xa Level POC ABG pH 7.455 H POC ABG pCO2 31.0 L POC ABG pO2 Sodium Potassium Chloride Carbon Dioxide BUN Creatinine Glucose POC Glucose 162 H Calcium Phosphorus Lactate Dehydrogenase Total Creatine Kinase NT-Pro-B Natriuret Pep Albumin Lehlo-8-Zsbypzoic Yxqap-4-Mxmggvfij Beta Globulins PEP Interpretation Cholesterol LDL Cholesterol Direct 04/01/16 04/01/16 04/01/16 05:35 08:44 12:49 WBC RBC Hgb Hct MCV MCH MCHC Plt Count Lymph % (Auto) [place] % (Auto) Lymph # [place] # Baso # Seg Neutrophils % Seg Neuts % (Manual) Lymphocytes % (Manual) Seg Neutrophils # Seg Neutrophils # Man Lymphocytes # (Manual) Monocytes # (Manual) APTT Heparin Anti-Xa Level POC ABG pH POC ABG pCO2 POC ABG pO2 Sodium Potassium Chloride Carbon Dioxide BUN Creatinine Glucose 256 H POC Glucose 257 H 279 H Calcium 8.0 L Phosphorus Lactate Dehydrogenase Total Creatine Kinase NT-Pro-B Natriuret Pep 1205 H Albumin Nhoab-4-Jsmawdycl Rllun-3-Xuoskrkxt Beta Globulins PEP Interpretation Cholesterol LDL Cholesterol Direct 04/01/16 04/02/16 04/02/16 18:12 00:42 04:17 WBC RBC Hgb Hct MCV MCH MCHC Plt Count Lymph % (Auto) [place] % (Auto) Lymph # [place] # Baso # Seg Neutrophils % Seg Neuts % (Manual) Lymphocytes % (Manual) Seg Neutrophils # Seg Neutrophils # Man Lymphocytes # (Manual) Monocytes # (Manual) APTT Heparin Anti-Xa Level POC ABG pH 7.582 H POC ABG pCO2 26.8 L POC ABG pO2 Sodium Potassium Chloride Carbon Dioxide BUN Creatinine Glucose POC Glucose 168 H 282 H Calcium Phosphorus Lactate Dehydrogenase Total Creatine Kinase NT-Pro-B Natriuret Pep Albumin Zvods-2-Dsdgyhnio Avgne-7-Itdgihpql Beta Globulins PEP Interpretation Cholesterol LDL Cholesterol Direct 04/02/16 04/02/16 04/02/16 05:00 05:00 06:27 WBC 12.4 H RBC Hgb Hct MCV 81 L MCH 26 L MCHC Plt Count Lymph % (Auto) 6.4 L [place] % (Auto) 13.3 H Lymph # 0.8 L [place] # 1.7 H Baso # Seg Neutrophils % 79.4 H Seg Neuts % (Manual) Lymphocytes % (Manual) Seg Neutrophils # 9.9 H Seg Neutrophils # Man Lymphocytes # (Manual) Monocytes # (Manual) APTT Heparin Anti-Xa Level POC ABG pH POC ABG pCO2 POC ABG pO2 Sodium 146 H Potassium Chloride Carbon Dioxide BUN Creatinine Glucose 334 H POC Glucose 317 H Calcium 8.0 L Phosphorus Lactate Dehydrogenase Total Creatine Kinase NT-Pro-B Natriuret Pep Albumin Piknz-0-Jhntdkhln Cfwwx-4-Bbybmaoir Beta Globulins PEP Interpretation Cholesterol LDL Cholesterol Direct 04/02/16 04/02/16 04/02/16 11:51 13:10 17:24 WBC RBC Hgb Hct MCV MCH MCHC Plt Count Lymph % (Auto) [place] % (Auto) Lymph # [place] # Baso # Seg Neutrophils % Seg Neuts % (Manual) Lymphocytes % (Manual) Seg Neutrophils # Seg Neutrophils # Man Lymphocytes # (Manual) Monocytes # (Manual) APTT Heparin Anti-Xa Level POC ABG pH 7.518 H POC ABG pCO2 POC ABG pO2 Sodium Potassium Chloride Carbon Dioxide BUN Creatinine Glucose POC Glucose 278 H 195 H Calcium Phosphorus Lactate Dehydrogenase Total Creatine Kinase NT-Pro-B Natriuret Pep Albumin Wbqma-6-Akblgbewi Ffqrj-9-Bhzotxsga Beta Globulins PEP Interpretation Cholesterol LDL Cholesterol Direct 04/03/16 04/03/16 04/03/16 00:18 04:10 04:10 WBC 14.3 H RBC Hgb Hct MCV 81 L MCH 26 L MCHC Plt Count Lymph % (Auto) 9.0 L [place] % (Auto) 10.7 H Lymph # [place] # 1.5 H Baso # 0.2 H Seg Neutrophils % 78.5 H Seg Neuts % (Manual) Lymphocytes % (Manual) Seg Neutrophils # 11.3 H Seg Neutrophils # Man Lymphocytes # (Manual) Monocytes # (Manual) APTT Heparin Anti-Xa Level POC ABG pH POC ABG pCO2 POC ABG pO2 Sodium 148 H Potassium Chloride 108.1 H Carbon Dioxide BUN 21 H Creatinine Glucose 227 H POC Glucose 144 H Calcium 8.2 L Phosphorus Lactate Dehydrogenase Total Creatine Kinase NT-Pro-B Natriuret Pep Albumin Qqpwd-1-Hextiwujs Rqaqs-3-Njjvkfzdj Beta Globulins PEP Interpretation Cholesterol LDL Cholesterol Direct 04/03/16 04/03/16 04/04/16 11:14 17:10 04:00 WBC 14.5 H RBC Hgb Hct MCV 81 L MCH 26 L MCHC Plt Count Lymph % (Auto) 7.2 L [place] % (Auto) 7.6 H Lymph # 1.0 L [place] # 1.1 H Baso # Seg Neutrophils % 84.5 H Seg Neuts % (Manual) Lymphocytes % (Manual) Seg Neutrophils # 12.3 H Seg Neutrophils # Man Lymphocytes # (Manual) Monocytes # (Manual) APTT Heparin Anti-Xa Level POC ABG pH POC ABG pCO2 POC ABG pO2 Sodium Potassium Chloride Carbon Dioxide BUN Creatinine Glucose POC Glucose 267 H 212 H Calcium Phosphorus Lactate Dehydrogenase Total Creatine Kinase NT-Pro-B Natriuret Pep Albumin Igtpk-4-Bxypcpotr Xfgxh-6-Hdokhqyzp Beta Globulins PEP Interpretation Cholesterol LDL Cholesterol Direct 04/04/16 04/04/16 04/04/16 05:00 09:55 09:55 WBC RBC Hgb 11.5 L Hct MCV MCH MCHC Plt Count Lymph % (Auto) [place] % (Auto) Lymph # [place] # Baso # Seg Neutrophils % Seg Neuts % (Manual) Lymphocytes % (Manual) Seg Neutrophils # Seg Neutrophils # Man Lymphocytes # (Manual) Monocytes # (Manual) APTT 42.1 H Heparin Anti-Xa Level POC ABG pH POC ABG pCO2 POC ABG pO2 Sodium 146 H Potassium Chloride Carbon Dioxide BUN 22 H Creatinine Glucose 128 H POC Glucose Calcium Phosphorus Lactate Dehydrogenase Total Creatine Kinase NT-Pro-B Natriuret Pep Albumin Psfmn-9-Jameqhmha Wajva-3-Zkfztvefq Beta Globulins PEP Interpretation Cholesterol LDL Cholesterol Direct 04/04/16 04/04/16 04/04/16 11:45 17:49 17:55 WBC RBC Hgb Hct MCV MCH MCHC Plt Count Lymph % (Auto) [place] % (Auto) Lymph # [place] # Baso # Seg Neutrophils % Seg Neuts % (Manual) Lymphocytes % (Manual) Seg Neutrophils # Seg Neutrophils # Man Lymphocytes # (Manual) Monocytes # (Manual) APTT Heparin Anti-Xa Level 1.19 H POC ABG pH POC ABG pCO2 POC ABG pO2 Sodium Potassium Chloride Carbon Dioxide BUN Creatinine Glucose POC Glucose 231 H 186 H Calcium Phosphorus Lactate Dehydrogenase Total Creatine Kinase NT-Pro-B Natriuret Pep Albumin Pjqni-2-Gjurkldhs Yiwuo-9-Bqcrtofeq Beta Globulins PEP Interpretation Cholesterol LDL Cholesterol Direct 04/05/16 04/05/16 04/05/16 00:35 05:32 05:42 WBC RBC Hgb Hct MCV MCH MCHC Plt Count Lymph % (Auto) [place] % (Auto) Lymph # [place] # Baso # Seg Neutrophils % Seg Neuts % (Manual) Lymphocytes % (Manual) Seg Neutrophils # Seg Neutrophils # Man Lymphocytes # (Manual) Monocytes # (Manual) APTT Heparin Anti-Xa Level POC ABG pH 7.491 H POC ABG pCO2 POC ABG pO2 Sodium Potassium Chloride Carbon Dioxide BUN Creatinine Glucose POC Glucose 192 H 242 H Calcium Phosphorus Lactate Dehydrogenase Total Creatine Kinase NT-Pro-B Natriuret Pep Albumin Dgvak-2-Sdfqjsema Rhlyn-4-Tucgfacxc Beta Globulins PEP Interpretation Cholesterol LDL Cholesterol Direct 04/05/16 04/05/16 06:20 06:20 WBC 13.9 H RBC Hgb 11.6 L Hct MCV 81 L MCH 26 L MCHC Plt Count Lymph % (Auto) 9.6 L [place] % (Auto) 8.7 H Lymph # [place] # 1.2 H Baso # Seg Neutrophils % 80.9 H Seg Neuts % (Manual) Lymphocytes % (Manual) Seg Neutrophils # 11.3 H Seg Neutrophils # Man Lymphocytes # (Manual) Monocytes # (Manual) APTT Heparin Anti-Xa Level POC ABG pH POC ABG pCO2 POC ABG pO2 Sodium 148 H Potassium Chloride Carbon Dioxide BUN 23 H Creatinine Glucose 242 H POC Glucose Calcium Phosphorus Lactate Dehydrogenase Total Creatine Kinase NT-Pro-B Natriuret Pep Albumin Nmpqm-6-Ulnnnfdlv Hsazl-6-Hezsuerzw Beta Globulins PEP Interpretation Cholesterol LDL Cholesterol Direct
--- NOTE | 2016-04-05 09:37 | Progress Note ---
Assessment and Plan Assessment and plan: 1. Acute respiratory failure. Patient extubated and tolerating nasal cannula. 2. Acute CVA. CT scan revealed acute ischemic infarct in the right cerebellum. MRI reveals subacute infarct in the right cerebellar hemisphere with associated edema and mass effect as previously described. Patient also with multiple areas of acute infarct in the left occipital and frontal lobes that are most likely embolic. LIZZIE per cardiology. I discussed with Cardiology. Continue heparin drip. Continue statin. 3. Hypernatremia. Slightly worse. Continue to monitor BMP. Continue free water. 4. Encephalopathy. EEG normal. Etiology likely secondary to CVA +/- hypertension. 5. Group B strep UTI-continue IV ceftriaxone; wbc normal and afebrile 6. Accelerated hypertension. Continue medications of lisinopril and increase labetalol. 7. CAD-stable, continue current beta em, statin 8. Seizures-continue Keppra. EEG normal. 9. Type 2 diabetes mellitus. Uncontrolled. Increased long acting insulin of Levemir to 32 units. 10. History of aortic dissection status post repair. 11. History of prosthetic aortic valve replacement. Echo with normal function on 08/2015. 12. DVT prophylaxis-Lovenox 13. GI prophylaxis-Pepcid The high probability of a clinically significant, sudden or life threatening deterioration of the [respiratory and neurological] system(s) required my full and direct attention, intervention and personal management. The aggregate critical care time was [32] minutes. This time is in addition to time spent performing reported procedures but includes the following: [x] Data Review and interpretation [x] Patient assessment and monitoring of vital signs [x] Documentation [x] Medication orders and management History Interval history: Patient is currently extubated with no new issues overnight. Patient is currently sitting up in a chair. Hospitalist Physical - Constitutional Vitals: Temp Pulse Resp BP Pulse Ox 98.7 F 83 20 184/112 99 04/05/16 05:53 04/05/16 06:00 04/05/16 06:00 04/05/16 06:00 04/05/16 07:13 General appearance: Present: no acute distress - EENT Eyes: Present: PERRL, EOM intact ENT: hearing intact, clear oral mucosa, dentition normal - Neck Neck: Present: supple, normal ROM - Respiratory Respiratory effort: normal Respiratory: bilateral: CTA - Cardiovascular Rhythm: regular Heart Sounds: Present: S1 & S2. Absent: gallop, rub - Extremities Extremities: no ischemia, No edema, Full ROM - Abdominal General gastrointestinal: soft, non-tender, non-distended, normal bowel sounds - Integumentary Integumentary: Present: clear, warm, dry - Neurologic Neurologic: CNII-XII intact, moves all extremities Results - Labs CBC & Chem 7: 04/05/16 06:20 04/05/16 06:20 Labs: Laboratory Last Values WBC 13.9 K/mm3 (4.5-11.0) H 04/05/16 06:20 RBC 4.51 M/mm3 (3.65-5.03) 04/05/16 06:20 Hgb 11.6 gm/dl (11.8-15.2) L 04/05/16 06:20 Hct 36.7 % (35.5-45.6) 04/05/16 06:20 MCV 81 fl (84-94) L 04/05/16 06:20 MCH 26 pg (28-32) L 04/05/16 06:20 MCHC 32 % (32-34) 04/05/16 06:20 RDW 14.9 % (13.2-15.2) 04/05/16 06:20 Plt Count 334 K/mm3 (140-440) 04/05/16 06:20 Lymph % (Auto) 9.6 % (13.4-35.0) L 04/05/16 06:20 [place] % (Auto) 8.7 % (0.0-7.3) H 04/05/16 06:20 Eos % (Auto) 0.4 % (0.0-4.3) 04/05/16 06:20 Baso % (Auto) 0.4 % (0.0-1.8) 04/05/16 06:20 Lymph # 1.3 K/mm3 (1.2-5.4) 04/05/16 06:20 [place] # 1.2 K/mm3 (0.0-0.8) H 04/05/16 06:20 Eos # 0.1 K/mm3 (0.0-0.4) 04/05/16 06:20 Baso # 0.1 K/mm3 (0.0-0.1) 04/05/16 06:20 Add Manual Diff Complete 11/24/16 05:56 Total Counted 100 03/25/16 05:56 Seg Neutrophils % 80.9 % (40.0-70.0) H 04/05/16 06:20 Seg Neuts % (Manual) 91.0 % (40.0-70.0) H 03/25/16 05:56 Band Neutrophils % 1.0 % 03/25/16 05:56 Lymphocytes % (Manual) 4.0 % (13.4-35.0) L 03/25/16 05:56 Reactive Lymphs % (Man) 0 % 03/25/16 05:56 Monocytes % (Manual) 4.0 % (0.0-7.3) 03/25/16 05:56 Eosinophils % (Manual) 0 % (0.0-4.3) 03/25/16 05:56 Basophils % (Manual) 0 % (0.0-1.8) 03/25/16 05:56 Metamyelocytes % 0 % 03/25/16 05:56 Myelocytes % 0 % 03/25/16 05:56 Promyelocytes % 0 % 03/25/16 05:56 Blast Cells % 0 % 03/25/16 05:56 Nucleated RBC % Not Reportable 03/25/16 05:56 Seg Neutrophils # 11.3 K/mm3 (1.8-7.7) H 04/05/16 06:20 Seg Neutrophils # Man 19.4 K/mm3 (1.8-7.7) H 03/25/16 05:56 Band Neutrophils # 0.2 K/mm3 03/25/16 05:56 Lymphocytes # (Manual) 0.9 K/mm3 (1.2-5.4) L 03/25/16 05:56 Abs React Lymphs (Man) 0.0 K/mm3 03/25/16 05:56 Monocytes # (Manual) 0.9 K/mm3 (0.0-0.8) H 03/25/16 05:56 Eosinophils # (Manual) 0.0 K/mm3 (0.0-0.4) 03/25/16 05:56 Basophils # (Manual) 0.0 K/mm3 (0.0-0.1) 03/25/16 05:56 Metamyelocytes # 0.0 K/mm3 03/25/16 05:56 Myelocytes # 0.0 K/mm3 03/25/16 05:56 Promyelocytes # 0.0 K/mm3 03/25/16 05:56 Blast Cells # 0.0 K/mm3 03/25/16 05:56 WBC Morphology Not Reportable 03/25/16 05:56 Hypersegmented Neuts Not Reportable 03/25/16 05:56 Hyposegmented Neuts Not Reportable 03/25/16 05:56 Hypogranular Neuts Not Reportable 03/25/16 05:56 Smudge Cells Not Reportable 03/25/16 05:56 Toxic Granulation Not Reportable 03/25/16 05:56 Toxic Vacuolation Not Reportable 03/25/16 05:56 Dohle Bodies Not Reportable 03/25/16 05:56 Pelger-Huet Anomaly Not Reportable 03/25/16 05:56 Corina Rods Not Reportable 03/25/16 05:56 Platelet Estimate Appears normal 03/25/16 05:56 Clumped Platelets Not Reportable 03/25/16 05:56 Plt Clumps, EDTA Not Reportable 03/25/16 05:56 Large Platelets Not Reportable 03/25/16 05:56 Giant Platelets Not Reportable 03/25/16 05:56 Platelet Satelliting Not Reportable 03/25/16 05:56 Plt Morphology Comment Not Reportable 03/25/16 05:56 RBC Morphology Normal 03/25/16 05:56 Dimorphic RBCs Not Reportable 03/25/16 05:56 Polychromasia Not Reportable 03/25/16 05:56 Hypochromasia Not Reportable 03/25/16 05:56 Poikilocytosis Not Reportable 03/25/16 05:56 Anisocytosis Not Reportable 03/25/16 05:56 Microcytosis Not Reportable 03/25/16 05:56 Macrocytosis Not Reportable 03/25/16 05:56 Spherocytes Not Reportable 03/25/16 05:56 Pappenheimer Bodies Not Reportable 03/25/16 05:56 Sickle Cells Not Reportable 03/25/16 05:56 Target Cells Not Reportable 03/25/16 05:56 Tear Drop Cells Not Reportable 03/25/16 05:56 Ovalocytes Not Reportable 03/25/16 05:56 Helmet Cells Not Reportable 03/25/16 05:56 Mcgrath-Ramirez-Perez Bodies Not Reportable 03/25/16 05:56 [place] Rings Not Reportable 03/25/16 05:56 [place] Cells Not Reportable 03/25/16 05:56 Bite Cells Not Reportable 03/25/16 05:56 Crenated Cell Not Reportable 03/25/16 05:56 Elliptocytes Not Reportable 03/25/16 05:56 Acanthocytes (Spur) Not Reportable 03/25/16 05:56 Rouleaux Not Reportable 03/25/16 05:56 Hemoglobin C Crystals Not Reportable 03/25/16 05:56 Schistocytes Not Reportable 03/25/16 05:56 Malaria parasites Not Reportable 03/25/16 05:56 Gideon Bodies Not Reportable 03/25/16 05:56 Hem Pathologist Commnt No 03/25/16 05:56 PT 13.5 Sec. (12.2-14.9) 04/04/16 09:55 INR 1.04 (0.87-1.13) 04/04/16 09:55 APTT 42.1 Sec. (24.2-36.6) H 04/04/16 09:55 Heparin Anti-Xa Level 0.44 U.I./ml (0.3-0.7) 04/05/16 01:08 POC ABG pH 7.491 (7.35-7.45) H 04/05/16 05:32 POC ABG pCO2 42.3 (35-45) 04/05/16 05:32 POC ABG pO2 90 (80-105) 04/05/16 05:32 POC ABG HCO3 32.3 04/05/16 05:32 POC ABG Total CO2 34 04/05/16 05:32 POC ABG O2 Sat 98 04/05/16 05:32 POC ABG Base Excess 9 04/05/16 05:32 VBG pH 7.418 (7.320-7.420) 03/24/16 14:00 FiO2 28 % 04/05/16 05:32 Sodium 148 mmol/L (137-145) H 04/05/16 06:20 Potassium 4.3 mmol/L (3.6-5.0) 04/05/16 06:20 Chloride 106.2 mmol/L (98-107) 04/05/16 06:20 Carbon Dioxide 30 mmol/L (22-30) 04/05/16 06:20 Anion Gap 16 mmol/L 04/05/16 06:20 BUN 23 mg/dL (9-20) H 04/05/16 06:20 Creatinine 1.1 mg/dL (0.8-1.5) 04/05/16 06:20 Estimated GFR > 60 ml/min 04/05/16 06:20 BUN/Creatinine Ratio 20.90 % 04/05/16 06:20 Glucose 242 mg/dL (75-100) H 04/05/16 06:20 POC Glucose 242 (70-105) H 04/05/16 05:42 Hemoglobin A1c 9.6 % (4-6) H 03/24/16 14:00 Lactic Acid 2.8 mmol/L (0.7-2.1) H 03/24/16 15:26 Calcium 8.5 mg/dL (8.4-10.2) 04/05/16 06:20 Phosphorus 2.3 mg/dL (2.5-4.5) L D 03/30/16 04:00 Magnesium 1.9 mg/dL (1.7-2.3) 03/30/16 04:00 Total Bilirubin 0.3 mg/dL (0.1-1.2) 03/24/16 14:00 AST 24 units/L (5-40) 03/24/16 14:00 ALT 38 units/L (7-56) 03/24/16 14:00 Alkaline Phosphatase 77 units/L (35-129) 03/24/16 14:00 Lactate Dehydrogenase 460 units/L (91-180) H 03/25/16 05:56 Total Creatine Kinase 356 units/L (55-170) H 03/28/16 13:29 Troponin T < 0.010 ng/mL (0.00-0.029) 03/28/16 13:29 NT-Pro-B Natriuret Pep 897.9 pg/mL (0-900) 04/03/16 04:10 Serum Total Protein 7.1 g/dL (6.1-8.1) 03/25/16 13:00 Total Protein 7.4 g/dL (6.3-8.2) 03/24/16 14:00 Albumin 3.4 g/dL (3.8-4.8) L 03/25/16 13:00 Albumin/Globulin Ratio 0.9 % 03/24/16 14:00 Sjimt-1-Hzijkuckr 0.4 g/dL (0.2-0.3) H 03/25/16 13:00 Cxzyh-1-Ajwrhguzm 1.1 g/dL (0.5-0.9) H 03/25/16 13:00 Beta Globulins 0.6 g/dL (0.2-0.5) H 03/25/16 13:00 Tmly-2-Dhozmxebcaijl 2.46 mg/L (<=2.51) 03/25/16 13:00 Gamma Globulins 1.3 g/dL (0.8-1.7) 03/25/16 13:00 Abnorm Protein Band 1 see below (()) 03/25/16 13:00 PEP Interpretation see below (()) H 03/25/16 13:00 Triglycerides 88 mg/dL (2-149) 03/24/16 17:58 Cholesterol 221 mg/dL (50-199) H 03/24/16 17:58 LDL Cholesterol Direct 146 mg/dL (50-130) H 03/24/16 17:58 HDL Cholesterol 58 mg/dL (40-59) 03/24/16 17:58 Cholesterol/HDL Ratio 3.81 % 03/24/16 17:58 Urine Color Yellow (Yellow) 03/24/16 14:27 Urine Turbidity Clear (Clear) 03/24/16 14:27 Urine pH 5.0 (5.0-7.0) 03/24/16 14:27 Ur Specific [place] 1.017 (1.003-1.030) 03/24/16 14:27 Urine Protein <15 mg/dl mg/dL (Negative) 03/24/16 14:27 Urine Glucose (UA) >=500 mg/dL (Negative) 03/24/16 14:27 Urine Ketones Neg mg/dL (Negative) 03/24/16 14:27 Urine Blood Sm (Negative) 03/24/16 14:27 Urine Nitrite Neg (Negative) 03/24/16 14:27 Urine Bilirubin Neg (Negative) 03/24/16 14:27 Urine Urobilinogen < 2.0 mg/dL (<2.0) 03/24/16 14:27 Ur Leukocyte Esterase Neg (Negative) 03/24/16 14:27 Urine WBC (Auto) 2.0 /HPF (0.0-6.0) 03/24/16 14:27 Urine RBC (Auto) < 1.0 /HPF (0.0-6.0) 03/24/16 14:27 U Epithel Cells (Auto) 4.0 /HPF (0-13.0) 03/24/16 14:27 Hyaline Casts 1 /LPF 03/24/16 14:27 Urine Mucus Few /HPF 03/24/16 14:27 Ketones 1.0 mg/dL (0.2-2.8) 03/24/16 14:00
[2016-04-05] MEDS ORDERED: NORMODYNE PO SCH (10:00)
[2016-04-05] MEDS: APRESOLINE IV PRN ×2 (10:19→18:00)
[2016-04-05] MEDS: ASPIRIN PO SCH (13:14)
[2016-04-05] MEDS: PEPCID PO SCH ×2 (13:15→21:47)
[2016-04-05] MEDS: KEPPRA PO SCH ×2 (13:15→21:49)
[2016-04-05] MEDS: CORDARONE PO SCH (13:15)
[2016-04-05] MEDS: ZESTRIL PO SCH ×2 (13:15→21:46)
[2016-04-05] MEDS: LEVEMIR SUB-Q SCH (13:25)
--- NOTE | 2016-04-05 13:43 | Progress Note ---
Addendum entered and electronically signed by MASOOD HAWLEY MD 04/05/16 19:18 : Patient is awaiting LIZZIE for further assessment of cardioembolic source of multi- infarct CVA. Original Note: Assessment and Plan Acute respiratory failure requiring intubation no evidence of PE by V\Q scan normal ventricular and atriua size, EF 65% on echo this admission. Acute CVA Abnormal ECG no significant CAD by [facility] 08/2015 Hx of aortic dissection s/p repair Hx of bioprosthetic aortic valve replacement Hypertension Will proceed with LIZZIE once consent is signed. Subjective Date of service: 04/05/16 Interval history: Patient is now extubated. Unable to reach family for consent, LIZZIE canceled. Objective Vital Signs Temp Pulse Resp BP Pulse Ox 04/05/16 13:15 90 136/81 04/05/16 10:19 84 182/109 04/05/16 07:13 99 04/05/16 06:00 83 20 184/112 95 04/05/16 05:53 98.7 F 04/05/16 05:16 85 23 133/89 97 04/05/16 05:00 84 22 147/99 96 04/05/16 04:00 83 22 147/99 98 04/05/16 03:42 81 22 164/99 98 04/05/16 03:00 86 21 164/99 92 04/05/16 02:00 83 23 156/95 94 04/05/16 01:00 83 22 162/90 93 04/05/16 00:00 98.8 F 86 20 170/97 94 04/04/16 23:00 84 13 176/98 93 04/04/16 22:30 90 176/98 04/04/16 22:00 88 19 172/102 94 04/04/16 21:00 87 21 155/104 96 04/04/16 20:49 87 19 160/89 98 04/04/16 20:00 98.9 F 83 16 160/89 95 04/04/16 19:54 97 04/04/16 19:11 81 24 145/90 98 04/04/16 19:00 81 22 145/90 96 04/04/16 18:25 81 22 139/76 98 04/04/16 18:00 80 26 H 139/76 96 04/04/16 17:38 80 25 H 142/85 98 04/04/16 17:00 83 24 142/85 95 04/04/16 16:07 75 26 H 122/77 95 04/04/16 16:00 99.5 F 80 26 H 122/77 94 04/04/16 15:00 84 21 149/94 95 04/04/16 14:21 84 20 148/86 98 04/04/16 14:00 87 14 148/86 94 - Physical Examination General: No Apparent Distress Cardiac: Positive: Reg Rate and Rhythm Extremities: Absent: edema - Labs and Meds CBC 04/05/16 Range/Units 06:20 WBC 13.9 H (4.5-11.0) K/mm3 RBC 4.51 (3.65-5.03) M/mm3 Hgb 11.6 L (11.8-15.2) gm/dl Hct 36.7 (35.5-45.6) % Plt Count 334 (140-440) K/mm3 Lymph # 1.3 (1.2-5.4) K/mm3 [place] # 1.2 H (0.0-0.8) K/mm3 Eos # 0.1 (0.0-0.4) K/mm3 Baso # 0.1 (0.0-0.1) K/mm3 Comprehensive Metabolic Panel 04/05/16 Range/Units 06:20 Sodium 148 H (137-145) mmol/L Potassium 4.3 (3.6-5.0) mmol/L Chloride 106.2 (98-107) mmol/L Carbon Dioxide 30 (22-30) mmol/L BUN 23 H (9-20) mg/dL Creatinine 1.1 (0.8-1.5) mg/dL Glucose 242 H (75-100) mg/dL Calcium 8.5 (8.4-10.2) mg/dL - Imaging and Cardiology EKG: image reviewed
[2016-04-05] MEDS: NORMODYNE PO SCH ×2 (14:23→21:47)
[2016-04-06] MEDS: HEPARIN/ 0.45% NACL-25,000 UNIT/500 ML 500 ML IV SCH (05:50)
[2016-04-06 06:20] LABS: Basophils % (Auto) 0.3 % (0.0-1.8); Eosinophils % (Auto) 0.1 % (0.0-4.3); Hematocrit 37.4 % (35.5-45.6); Hemoglobin 11.8 gm/dl (11.8-15.2); Mean Corpuscular HGB Conc 31 % (32-34); Mean Corpuscular Volume 82 fl (84-94); Platelet Count 342 K/mm3 (140-440); Red Blood Count 4.55 M/mm3 (3.65-5.03); Red Cell Distribution Width 14.9 % (13.2-15.2)
[2016-04-06 06:23] LABS: Mean Corpuscular Hemoglobin 26 pg (28-32)
[2016-04-06] MEDS: D50W (25GM) IV PRN (06:30)
[2016-04-06] MEDS: NOVOLOG SUB-Q SCH ×2 (06:40→13:30)
[2016-04-06 06:49] LABS: BUN/Creatinine Ratio 16.92; Blood Urea Nitrogen 22 mg/dL (9-20); Calcium 8.6 mg/dL (8.4-10.2); Carbon Dioxide 29 mmol/L (22-30); Chloride 111.3 mmol/L (98-107); Glucose 62 mg/dL (75-100); Potassium 3.9 mmol/L (3.6-5.0); Sodium 153 mmol/L (137-145)
[2016-04-06 06:51] LABS: Anion Gap 17 mmol/L
[2016-04-06] MEDS: NORMODYNE PO SCH ×3 (09:38→21:24)
[2016-04-06] MEDS: LEVEMIR SUB-Q SCH (09:38)
--- NOTE | 2016-04-06 11:22 | Progress Note ---
Addendum entered and electronically signed by MASOOD HAWLEY MD 04/06/16 11:35 : Patient is awaiting LIZZIE for cardioembolic source of multi-infarct CVA. Original Note: Assessment and Plan Acute respiratory failure now extubated no evidence of PE by V\Q scan normal ventricular and atriua size, EF 65% on echo this admission. Acute CVA Abnormal ECG no significant CAD by [facility] 08/2015 Hx of aortic dissection s/p repair Hx of bioprosthetic aortic valve replacement Hypertension Plan: LIZZIE for further assessment of cardioembolic source of multi-infarct CVA tomorrow morning. Subjective Date of service: 04/06/16 Interval history: No cardiac events overnight. Objective Vital Signs Temp Pulse Pulse Pulse Resp Resp BP 04/06/16 06:57 99.0 F 100 H 22 04/06/16 05:26 98.9 F 80 18 04/06/16 01:34 99.2 F 88 20 04/05/16 23:53 99.2 F 04/05/16 23:18 90 16 110/75 04/05/16 23:16 89 22 110/75 04/05/16 23:00 87 31 H 110/75 04/05/16 22:58 87 23 131/87 04/05/16 22:00 95 H 28 H 131/87 04/05/16 21:47 100 H 120/65 04/05/16 21:46 100 H 120/65 04/05/16 21:40 99 H 14 26 H 120/65 04/05/16 21:26 93 H 20 130/71 04/05/16 21:01 88 25 H 120/65 04/05/16 21:00 88 24 120/65 04/05/16 20:36 91 H 32 H 130/71 04/05/16 20:30 99.8 F H 04/05/16 20:29 04/05/16 20:00 90 25 H 130/71 04/05/16 19:56 91 H 26 H 123/71 04/05/16 19:30 87 89 26 H 04/05/16 19:00 87 23 123/71 04/05/16 18:34 89 13 163/98 04/05/16 18:00 99 H 19 163/98 04/05/16 17:00 103 H 28 H 150/92 04/05/16 16:00 98.9 F 98 H 19 156/90 04/05/16 15:00 95 H 23 131/80 04/05/16 14:23 91 H 126/80 04/05/16 14:00 88 22 126/80 04/05/16 13:18 92 H 25 H 133/83 04/05/16 13:15 90 136/81 04/05/16 13:00 91 H 21 133/83 04/05/16 12:27 17 04/05/16 12:00 98 F 93 H 23 146/84 BP Pulse Ox 04/06/16 06:57 139/90 96 04/06/16 05:26 131/94 99 04/06/16 01:34 161/100 04/05/16 23:53 04/05/16 23:18 97 04/05/16 23:16 96 04/05/16 23:00 94 04/05/16 22:58 95 04/05/16 22:00 96 04/05/16 21:47 04/05/16 21:46 04/05/16 21:40 96 04/05/16 21:26 04/05/16 21:01 95 04/05/16 21:00 95 04/05/16 20:36 95 04/05/16 20:30 04/05/16 20:29 95 04/05/16 20:00 96 04/05/16 19:56 96 04/05/16 19:30 04/05/16 19:00 04/05/16 18:34 95 04/05/16 18:00 96 04/05/16 17:00 95 04/05/16 16:00 96 04/05/16 15:00 96 04/05/16 14:23 04/05/16 14:00 95 04/05/16 13:18 94 04/05/16 13:15 04/05/16 13:00 96 04/05/16 12:27 95 04/05/16 12:00 95 - Physical Examination General: No Apparent Distress HEENT: Positive: PERRL Cardiac: Positive: Reg Rate and Rhythm Extremities: Absent: edema - Labs and Meds CBC 04/06/16 Range/Units 05:23 WBC 13.0 H (4.5-11.0) K/mm3 RBC 4.55 (3.65-5.03) M/mm3 Hgb 11.8 (11.8-15.2) gm/dl Hct 37.4 (35.5-45.6) % Plt Count 342 (140-440) K/mm3 Lymph # 0.9 L (1.2-5.4) K/mm3 [place] # 1.1 H (0.0-0.8) K/mm3 Eos # 0.0 (0.0-0.4) K/mm3 Baso # 0.0 (0.0-0.1) K/mm3 Comprehensive Metabolic Panel 04/06/16 Range/Units 05:23 Sodium 153 H (137-145) mmol/L Potassium 3.9 (3.6-5.0) mmol/L Chloride 111.3 H (98-107) mmol/L Carbon Dioxide 29 (22-30) mmol/L BUN 22 H (9-20) mg/dL Creatinine 1.3 (0.8-1.5) mg/dL Glucose 62 L (75-100) mg/dL Calcium 8.6 (8.4-10.2) mg/dL - Imaging and Cardiology EKG: image reviewed
[2016-04-06] MEDS ORDERED: FLUARIX QUAD 2016-2017(36 MOS+) IM ONE (12:00)
[2016-04-06] MEDS ORDERED: PNEUMOVAX 23 IM ONE (12:00)
--- NOTE | 2016-04-06 13:16 | XRay Report ---
SUPINE KUB: History: Dobbhoff tube placement. The abdominal gas pattern is unremarkable. No masses or organomegaly is identified and there is no gross evidence of free air or fluid. No significant soft tissue calcifications are noted. The feeding tube terminates in the body of the stomach. IMPRESSION: Feeding tube terminates in the mid stomach.
[2016-04-06] MEDS: ASPIRIN PO SCH (13:29)
[2016-04-06] MEDS: KEPPRA PO SCH ×2 (13:29→21:24)
[2016-04-06] MEDS: ZESTRIL PO SCH ×2 (13:30→21:24)
[2016-04-06] MEDS: PEPCID PO SCH ×2 (13:30→21:24)
[2016-04-06] MEDS: CORDARONE PO SCH (13:30)
--- NOTE | 2016-04-06 13:50 | Progress Note ---
Assessment and Plan 61 y/o male with acute encephalopathy, causing acute respiratory failure, etiology of encephalopathy unknown at this time with persistent hypertension and improving renal failure. 1. Follow up cards recs, awaiting LIZZIE 2. Continue supplemental O2 3. Aspiration precautions. Subjective Date of service: 04/06/16 Interval history: No acute events. About to work with PT. Objective Vital Signs - 12hr 04/06/16 04/06/16 04/06/16 05:26 06:57 11:39 Temperature 98.9 F 99.0 F 97.0 F L Pulse Rate [ 80 100 H 91 H From Monitor] Respiratory 18 22 20 Rate Blood Pressure 131/94 139/90 130/82 [Right Radial Artery] O2 Sat by Pulse 99 96 96 Oximetry Constitutional: no acute distress, other (follow commands) Eyes: non-icteric ENT: other (orally intubated and sedated) Neck: supple Effort: normal Ascultation: Bilateral: clear, rhonchi (occasional) Percussion: Bilateral: not dull Cardiovascular: regular rate and rhythm, irregular rhythm Gastrointestinal: normoactive bowel sounds, soft, non-tender Extremities: no cyanosis, no edema Neurologic: other (RASS 0 ) CBC and BMP: 04/06/16 05:23 04/06/16 05:23 ABG, PT/INR, D-dimer: ABG POC ABG pH 7.491 (7.35-7.45) H 04/05/16 05:32 POC ABG pCO2 42.3 (35-45) 04/05/16 05:32 POC ABG pO2 90 (80-105) 04/05/16 05:32 POC ABG HCO3 32.3 04/05/16 05:32 POC ABG Total CO2 34 04/05/16 05:32 POC ABG O2 Sat 98 04/05/16 05:32 PT/INR, D-dimer PT 13.5 Sec. (12.2-14.9) 04/04/16 09:55 INR 1.04 (0.87-1.13) 04/04/16 09:55 Abnormal lab findings: Abnormal Labs 03/24/16 03/24/16 03/24/16 17:58 20:25 23:23 WBC RBC Hgb Hct MCV MCH MCHC Plt Count Lymph % (Auto) Jay % (Auto) Lymph # Jay # Baso # Seg Neutrophils % Seg Neuts % (Manual) Lymphocytes % (Manual) Seg Neutrophils # Seg Neutrophils # Man Lymphocytes # (Manual) Monocytes # (Manual) APTT Heparin Anti-Xa Level POC ABG pH POC ABG pCO2 POC ABG pO2 Sodium 169 H* Potassium 3.5 L Chloride 130.3 H Carbon Dioxide BUN 28 H Creatinine 1.8 H Glucose POC Glucose 112 H Calcium Phosphorus Lactate Dehydrogenase Total Creatine Kinase NT-Pro-B Natriuret Pep Albumin Qncqf-6-Ezudqhumq Yjuvn-8-Veenwrxew Beta Globulins PEP Interpretation Cholesterol 221 H LDL Cholesterol Direct 146 H 03/25/16 03/25/16 03/25/16 05:56 05:56 05:56 WBC 21.3 H RBC 6.32 H Hgb 16.7 H Hct 52.7 H MCV 83 L MCH 27 L MCHC Plt Count Lymph % (Auto) Jay % (Auto) Lymph # Jay # Baso # Seg Neutrophils % Seg Neuts % (Manual) 91.0 H Lymphocytes % (Manual) 4.0 L Seg Neutrophils # Seg Neutrophils # Man 19.4 H Lymphocytes # (Manual) 0.9 L Monocytes # (Manual) 0.9 H APTT Heparin Anti-Xa Level POC ABG pH POC ABG pCO2 POC ABG pO2 Sodium 172 H* Potassium 3.5 L Chloride 130.4 H Carbon Dioxide BUN 29 H Creatinine 1.8 H Glucose 187 H POC Glucose Calcium Phosphorus Lactate Dehydrogenase 460 H Total Creatine Kinase NT-Pro-B Natriuret Pep Albumin Tatbd-4-Yijjaxuow Pcmbe-0-Dsuryeiay Beta Globulins PEP Interpretation Cholesterol LDL Cholesterol Direct 03/25/16 03/25/16 03/25/16 07:55 12:19 13:00 WBC RBC Hgb Hct MCV MCH MCHC Plt Count Lymph % (Auto) Jay % (Auto) Lymph # Jay # Baso # Seg Neutrophils % Seg Neuts % (Manual) Lymphocytes % (Manual) Seg Neutrophils # Seg Neutrophils # Man Lymphocytes # (Manual) Monocytes # (Manual) APTT Heparin Anti-Xa Level POC ABG pH POC ABG pCO2 POC ABG pO2 Sodium Potassium Chloride Carbon Dioxide BUN Creatinine Glucose POC Glucose 231 H 314 H Calcium Phosphorus Lactate Dehydrogenase Total Creatine Kinase NT-Pro-B Natriuret Pep Albumin 3.4 L Yhenk-6-Svhkqywab 0.4 H Bnuka-9-Qtdxvhtcx 1.1 H Beta Globulins 0.6 H PEP Interpretation see below H Cholesterol LDL Cholesterol Direct 03/25/16 03/25/16 03/26/16 16:41 22:45 08:32 WBC RBC Hgb Hct MCV MCH MCHC Plt Count Lymph % (Auto) Jay % (Auto) Lymph # Jay # Baso # Seg Neutrophils % Seg Neuts % (Manual) Lymphocytes % (Manual) Seg Neutrophils # Seg Neutrophils # Man Lymphocytes # (Manual) Monocytes # (Manual) APTT Heparin Anti-Xa Level POC ABG pH POC ABG pCO2 POC ABG pO2 Sodium Potassium Chloride Carbon Dioxide BUN Creatinine Glucose POC Glucose 444 H 326 H 360 H Calcium Phosphorus Lactate Dehydrogenase Total Creatine Kinase NT-Pro-B Natriuret Pep Albumin Snxtz-7-Mdpyptepl Jgwod-6-Ddaemzjmn Beta Globulins PEP Interpretation Cholesterol LDL Cholesterol Direct 03/26/16 03/26/16 03/26/16 12:38 15:33 15:47 WBC RBC Hgb Hct MCV MCH MCHC Plt Count Lymph % (Auto) Jay % (Auto) Lymph # Jay # Baso # Seg Neutrophils % Seg Neuts % (Manual) Lymphocytes % (Manual) Seg Neutrophils # Seg Neutrophils # Man Lymphocytes # (Manual) Monocytes # (Manual) APTT Heparin Anti-Xa Level POC ABG pH 7.511 H POC ABG pCO2 26.5 L POC ABG pO2 70 L Sodium Potassium Chloride Carbon Dioxide BUN Creatinine Glucose POC Glucose 280 H 174 H Calcium Phosphorus Lactate Dehydrogenase Total Creatine Kinase NT-Pro-B Natriuret Pep Albumin Lmpio-5-Qzhptysgu Xtxov-3-Qsamuxkij Beta Globulins PEP Interpretation Cholesterol LDL Cholesterol Direct 03/26/16 03/26/16 03/26/16 16:47 16:47 18:51 WBC 14.0 H RBC 5.17 H Hgb Hct MCV MCH 26 L MCHC 31 L Plt Count 139 L Lymph % (Auto) Jay % (Auto) Lymph # Jay # Baso # Seg Neutrophils % Seg Neuts % (Manual) Lymphocytes % (Manual) Seg Neutrophils # Seg Neutrophils # Man Lymphocytes # (Manual) Monocytes # (Manual) APTT Heparin Anti-Xa Level POC ABG pH POC ABG pCO2 33.9 L POC ABG pO2 150 H Sodium 164 H* Potassium 3.4 L Chloride 128.5 H Carbon Dioxide BUN 30 H Creatinine 2.2 H Glucose 121 H POC Glucose Calcium 8.1 L Phosphorus Lactate Dehydrogenase Total Creatine Kinase NT-Pro-B Natriuret Pep Albumin Eauje-1-Rsgywxrcn Vzckl-8-Qspzemvir Beta Globulins PEP Interpretation Cholesterol LDL Cholesterol Direct 03/27/16 03/27/16 03/27/16 02:19 05:47 06:02 WBC RBC Hgb Hct MCV MCH MCHC Plt Count Lymph % (Auto) Jay % (Auto) Lymph # Jay # Baso # Seg Neutrophils % Seg Neuts % (Manual) Lymphocytes % (Manual) Seg Neutrophils # Seg Neutrophils # Man Lymphocytes # (Manual) Monocytes # (Manual) APTT Heparin Anti-Xa Level POC ABG pH POC ABG pCO2 27.3 L 30.3 L POC ABG pO2 50 L 112 H Sodium 158 H Potassium Chloride 126.7 H Carbon Dioxide 20 L BUN 25 H Creatinine 1.7 H Glucose POC Glucose Calcium 7.0 L Phosphorus Lactate Dehydrogenase Total Creatine Kinase NT-Pro-B Natriuret Pep Albumin Askso-0-Aujicnbuo Rxojl-1-Rydepgpbc Beta Globulins PEP Interpretation Cholesterol LDL Cholesterol Direct 03/27/16 03/27/16 03/27/16 07:51 09:20 11:45 WBC 14.2 H RBC Hgb Hct MCV 83 L MCH 27 L MCHC Plt Count 113 L Lymph % (Auto) Jay % (Auto) Lymph # Jay # Baso # Seg Neutrophils % Seg Neuts % (Manual) Lymphocytes % (Manual) Seg Neutrophils # Seg Neutrophils # Man Lymphocytes # (Manual) Monocytes # (Manual) APTT Heparin Anti-Xa Level POC ABG pH POC ABG pCO2 POC ABG pO2 Sodium Potassium Chloride Carbon Dioxide BUN Creatinine Glucose POC Glucose 124 H 241 H Calcium Phosphorus Lactate Dehydrogenase Total Creatine Kinase NT-Pro-B Natriuret Pep Albumin Fadgu-8-Rjjanhlzf Mtkxt-7-Ftjfiaxre Beta Globulins PEP Interpretation Cholesterol LDL Cholesterol Direct 03/27/16 03/27/16 03/28/16 16:39 22:03 03:29 WBC RBC Hgb Hct MCV MCH MCHC Plt Count Lymph % (Auto) Jay % (Auto) Lymph # Jay # Baso # Seg Neutrophils % Seg Neuts % (Manual) Lymphocytes % (Manual) Seg Neutrophils # Seg Neutrophils # Man Lymphocytes # (Manual) Monocytes # (Manual) APTT Heparin Anti-Xa Level POC ABG pH POC ABG pCO2 POC ABG pO2 Sodium Potassium Chloride Carbon Dioxide BUN Creatinine Glucose POC Glucose 266 H 167 H 241 H Calcium Phosphorus Lactate Dehydrogenase Total Creatine Kinase NT-Pro-B Natriuret Pep Albumin Wwufa-7-Tkvoqtsqv Heqxx-5-Pekljvigg Beta Globulins PEP Interpretation Cholesterol LDL Cholesterol Direct 03/28/16 03/28/16 03/28/16 05:00 05:00 05:00 WBC RBC Hgb Hct MCV 83 L MCH 27 L MCHC Plt Count 106 L Lymph % (Auto) Jay % (Auto) 10.1 H Lymph # Jay # 1.0 H Baso # Seg Neutrophils % 75.1 H Seg Neuts % (Manual) Lymphocytes % (Manual) Seg Neutrophils # Seg Neutrophils # Man Lymphocytes # (Manual) Monocytes # (Manual) APTT Heparin Anti-Xa Level POC ABG pH POC ABG pCO2 POC ABG pO2 Sodium 147 H D Potassium 3.1 L D Chloride 112.3 H Carbon Dioxide 21 L BUN Creatinine Glucose 208 H POC Glucose Calcium 7.0 L Phosphorus 2.2 L Lactate Dehydrogenase Total Creatine Kinase NT-Pro-B Natriuret Pep Albumin Vwxvh-0-Saopdohsq Bdmmc-9-Mllzudvjk Beta Globulins PEP Interpretation Cholesterol LDL Cholesterol Direct 03/28/16 03/28/16 03/28/16 05:14 08:41 10:56 WBC RBC Hgb Hct MCV MCH MCHC Plt Count Lymph % (Auto) Jay % (Auto) Lymph # Jay # Baso # Seg Neutrophils % Seg Neuts % (Manual) Lymphocytes % (Manual) Seg Neutrophils # Seg Neutrophils # Man Lymphocytes # (Manual) Monocytes # (Manual) APTT Heparin Anti-Xa Level POC ABG pH 7.457 H POC ABG pCO2 29.7 L 27.7 L POC ABG pO2 Sodium Potassium Chloride Carbon Dioxide BUN Creatinine Glucose POC Glucose 228 H Calcium Phosphorus Lactate Dehydrogenase Total Creatine Kinase NT-Pro-B Natriuret Pep Albumin Dvyea-9-Huyefyeno Doyoq-6-Srymfrxfh Beta Globulins PEP Interpretation Cholesterol LDL Cholesterol Direct 03/28/16 03/28/16 03/28/16 11:37 13:29 16:22 WBC RBC Hgb Hct MCV MCH MCHC Plt Count Lymph % (Auto) Jay % (Auto) Lymph # Jay # Baso # Seg Neutrophils % Seg Neuts % (Manual) Lymphocytes % (Manual) Seg Neutrophils # Seg Neutrophils # Man Lymphocytes # (Manual) Monocytes # (Manual) APTT Heparin Anti-Xa Level POC ABG pH POC ABG pCO2 POC ABG pO2 Sodium Potassium Chloride Carbon Dioxide BUN Creatinine Glucose POC Glucose 226 H 200 H Calcium Phosphorus Lactate Dehydrogenase Total Creatine Kinase 356 H NT-Pro-B Natriuret Pep Albumin Phujm-4-Ktrbovfxy Kkbmh-6-Emxysbacb Beta Globulins PEP Interpretation Cholesterol LDL Cholesterol Direct 03/28/16 03/29/16 03/29/16 21:48 04:50 04:50 WBC RBC Hgb 11.5 L Hct 35.3 L MCV 81 L MCH 26 L MCHC Plt Count 97 L Lymph % (Auto) Jay % (Auto) 11.7 H Lymph # Jay # 1.1 H Baso # Seg Neutrophils % Seg Neuts % (Manual) Lymphocytes % (Manual) Seg Neutrophils # Seg Neutrophils # Man Lymphocytes # (Manual) Monocytes # (Manual) APTT Heparin Anti-Xa Level POC ABG pH POC ABG pCO2 POC ABG pO2 Sodium 136 L D Potassium 3.3 L Chloride Carbon Dioxide 20 L BUN Creatinine Glucose 386 H POC Glucose 188 H Calcium 6.8 L Phosphorus 1.6 L D Lactate Dehydrogenase Total Creatine Kinase NT-Pro-B Natriuret Pep Albumin Azctb-0-Xjwhwlvhp Khiog-4-Uepuwkrzj Beta Globulins PEP Interpretation Cholesterol LDL Cholesterol Direct 03/29/16 03/29/16 03/29/16 08:10 11:12 16:09 WBC RBC Hgb Hct MCV MCH MCHC Plt Count Lymph % (Auto) Jay % (Auto) Lymph # Jay # Baso # Seg Neutrophils % Seg Neuts % (Manual) Lymphocytes % (Manual) Seg Neutrophils # Seg Neutrophils # Man Lymphocytes # (Manual) Monocytes # (Manual) APTT Heparin Anti-Xa Level POC ABG pH POC ABG pCO2 POC ABG pO2 Sodium Potassium Chloride Carbon Dioxide BUN Creatinine Glucose POC Glucose 230 H 180 H 46 L Calcium Phosphorus Lactate Dehydrogenase Total Creatine Kinase NT-Pro-B Natriuret Pep Albumin Dljyf-1-Maipjwwjf Ibxim-6-Tlsfetpgq Beta Globulins PEP Interpretation Cholesterol LDL Cholesterol Direct 03/29/16 03/29/16 03/30/16 16:12 18:15 02:53 WBC RBC Hgb Hct MCV MCH MCHC Plt Count Lymph % (Auto) Jay % (Auto) Lymph # Jay # Baso # Seg Neutrophils % Seg Neuts % (Manual) Lymphocytes % (Manual) Seg Neutrophils # Seg Neutrophils # Man Lymphocytes # (Manual) Monocytes # (Manual) APTT Heparin Anti-Xa Level POC ABG pH POC ABG pCO2 POC ABG pO2 Sodium Potassium Chloride Carbon Dioxide BUN Creatinine Glucose POC Glucose 52 L 118 H 130 H Calcium Phosphorus Lactate Dehydrogenase Total Creatine Kinase NT-Pro-B Natriuret Pep Albumin Zghqb-4-Mgjbwmqer Ajjly-1-Sihgbxjzr Beta Globulins PEP Interpretation Cholesterol LDL Cholesterol Direct 03/30/16 03/30/16 03/30/16 04:00 04:00 05:29 WBC RBC Hgb Hct MCV 81 L MCH 26 L MCHC Plt Count 116 L Lymph % (Auto) 10.8 L Jay % (Auto) 13.1 H Lymph # 1.0 L Jay # 1.3 H Baso # Seg Neutrophils % 74.2 H Seg Neuts % (Manual) Lymphocytes % (Manual) Seg Neutrophils # Seg Neutrophils # Man Lymphocytes # (Manual) Monocytes # (Manual) APTT Heparin Anti-Xa Level POC ABG pH 7.522 H POC ABG pCO2 22.7 L POC ABG pO2 137 H Sodium 147 H D Potassium Chloride 115.5 H Carbon Dioxide 20 L BUN Creatinine Glucose 116 H POC Glucose Calcium 7.6 L Phosphorus 2.3 L D Lactate Dehydrogenase Total Creatine Kinase NT-Pro-B Natriuret Pep Albumin Cmfwi-1-Amfzvudce Escil-3-Kgosmgrgo Beta Globulins PEP Interpretation Cholesterol LDL Cholesterol Direct 03/30/16 03/30/16 03/30/16 05:47 08:05 08:59 WBC RBC Hgb Hct MCV MCH MCHC Plt Count Lymph % (Auto) Jay % (Auto) Lymph # Jay # Baso # Seg Neutrophils % Seg Neuts % (Manual) Lymphocytes % (Manual) Seg Neutrophils # Seg Neutrophils # Man Lymphocytes # (Manual) Monocytes # (Manual) APTT Heparin Anti-Xa Level POC ABG pH POC ABG pCO2 26.2 L POC ABG pO2 115 H Sodium Potassium Chloride Carbon Dioxide BUN Creatinine Glucose POC Glucose 138 H 171 H Calcium Phosphorus Lactate Dehydrogenase Total Creatine Kinase NT-Pro-B Natriuret Pep Albumin Jgwoh-8-Zulmafulc Akiyv-4-Qyoptihae Beta Globulins PEP Interpretation Cholesterol LDL Cholesterol Direct 03/30/16 03/30/16 03/30/16 12:11 12:11 16:39 WBC RBC Hgb Hct MCV MCH MCHC Plt Count Lymph % (Auto) Jay % (Auto) Lymph # Jay # Baso # Seg Neutrophils % Seg Neuts % (Manual) Lymphocytes % (Manual) Seg Neutrophils # Seg Neutrophils # Man Lymphocytes # (Manual) Monocytes # (Manual) APTT Heparin Anti-Xa Level POC ABG pH 7.476 H POC ABG pCO2 29.0 L POC ABG pO2 Sodium Potassium Chloride Carbon Dioxide BUN Creatinine Glucose POC Glucose 142 H 59 L Calcium Phosphorus Lactate Dehydrogenase Total Creatine Kinase NT-Pro-B Natriuret Pep Albumin Iyxwf-9-Gaqbkkjvm Kkhdy-9-Pkbhzbhnk Beta Globulins PEP Interpretation Cholesterol LDL Cholesterol Direct 03/30/16 03/30/16 03/31/16 18:41 21:59 05:02 WBC RBC Hgb Hct MCV MCH MCHC Plt Count Lymph % (Auto) Jay % (Auto) Lymph # Jay # Baso # Seg Neutrophils % Seg Neuts % (Manual) Lymphocytes % (Manual) Seg Neutrophils # Seg Neutrophils # Man Lymphocytes # (Manual) Monocytes # (Manual) APTT Heparin Anti-Xa Level POC ABG pH 7.519 H POC ABG pCO2 21.8 L POC ABG pO2 142 H Sodium Potassium Chloride Carbon Dioxide BUN Creatinine Glucose POC Glucose 145 H 154 H Calcium Phosphorus Lactate Dehydrogenase Total Creatine Kinase NT-Pro-B Natriuret Pep Albumin Voilx-9-Iaqfgrhqw Fzmcx-6-Idpqtnupp Beta Globulins PEP Interpretation Cholesterol LDL Cholesterol Direct 03/31/16 03/31/16 03/31/16 05:15 05:15 05:15 WBC 13.4 H RBC 5.21 H Hgb Hct MCV 81 L MCH 26 L MCHC Plt Count Lymph % (Auto) 9.5 L Jay % (Auto) 14.0 H Lymph # Jay # 1.9 H Baso # Seg Neutrophils % 75.0 H Seg Neuts % (Manual) Lymphocytes % (Manual) Seg Neutrophils # 10.1 H Seg Neutrophils # Man Lymphocytes # (Manual) Monocytes # (Manual) APTT Heparin Anti-Xa Level POC ABG pH POC ABG pCO2 POC ABG pO2 Sodium Potassium Chloride 108.5 H Carbon Dioxide 19 L BUN Creatinine Glucose 188 H POC Glucose Calcium Phosphorus Lactate Dehydrogenase Total Creatine Kinase NT-Pro-B Natriuret Pep 1089 H Albumin Gqdru-9-Hsdaxbnkc Ltkzs-9-Cebdygday Beta Globulins PEP Interpretation Cholesterol LDL Cholesterol Direct 03/31/16 03/31/16 03/31/16 07:23 11:12 15:20 WBC RBC Hgb Hct MCV MCH MCHC Plt Count Lymph % (Auto) Jay % (Auto) Lymph # Jay # Baso # Seg Neutrophils % Seg Neuts % (Manual) Lymphocytes % (Manual) Seg Neutrophils # Seg Neutrophils # Man Lymphocytes # (Manual) Monocytes # (Manual) APTT Heparin Anti-Xa Level POC ABG pH POC ABG pCO2 POC ABG pO2 Sodium Potassium Chloride Carbon Dioxide BUN Creatinine Glucose POC Glucose 233 H 228 H 208 H Calcium Phosphorus Lactate Dehydrogenase Total Creatine Kinase NT-Pro-B Natriuret Pep Albumin Ugdck-4-Zufkiwzfe Kzcza-5-Ylnaxvzpp Beta Globulins PEP Interpretation Cholesterol LDL Cholesterol Direct 03/31/16 04/01/16 04/01/16 21:27 04:41 05:35 WBC 12.1 H RBC Hgb Hct MCV 81 L MCH 26 L MCHC Plt Count Lymph % (Auto) 8.5 L Jay % (Auto) 14.0 H Lymph # 1.0 L Jay # 1.7 H Baso # Seg Neutrophils % 76.2 H Seg Neuts % (Manual) Lymphocytes % (Manual) Seg Neutrophils # 9.2 H Seg Neutrophils # Man Lymphocytes # (Manual) Monocytes # (Manual) APTT Heparin Anti-Xa Level POC ABG pH 7.455 H POC ABG pCO2 31.0 L POC ABG pO2 Sodium Potassium Chloride Carbon Dioxide BUN Creatinine Glucose POC Glucose 162 H Calcium Phosphorus Lactate Dehydrogenase Total Creatine Kinase NT-Pro-B Natriuret Pep Albumin Sqezy-4-Cctzlnrhe Qfujs-6-Wlgzctexo Beta Globulins PEP Interpretation Cholesterol LDL Cholesterol Direct 04/01/16 04/01/16 04/01/16 05:35 08:44 12:49 WBC RBC Hgb Hct MCV MCH MCHC Plt Count Lymph % (Auto) Jay % (Auto) Lymph # Jay # Baso # Seg Neutrophils % Seg Neuts % (Manual) Lymphocytes % (Manual) Seg Neutrophils # Seg Neutrophils # Man Lymphocytes # (Manual) Monocytes # (Manual) APTT Heparin Anti-Xa Level POC ABG pH POC ABG pCO2 POC ABG pO2 Sodium Potassium Chloride Carbon Dioxide BUN Creatinine Glucose 256 H POC Glucose 257 H 279 H Calcium 8.0 L Phosphorus Lactate Dehydrogenase Total Creatine Kinase NT-Pro-B Natriuret Pep 1205 H Albumin Orsed-1-Typpewfxy Tlpyw-9-Hycgfjmjs Beta Globulins PEP Interpretation Cholesterol LDL Cholesterol Direct 04/01/16 04/02/16 04/02/16 18:12 00:42 04:17 WBC RBC Hgb Hct MCV MCH MCHC Plt Count Lymph % (Auto) Jay % (Auto) Lymph # Jay # Baso # Seg Neutrophils % Seg Neuts % (Manual) Lymphocytes % (Manual) Seg Neutrophils # Seg Neutrophils # Man Lymphocytes # (Manual) Monocytes # (Manual) APTT Heparin Anti-Xa Level POC ABG pH 7.582 H POC ABG pCO2 26.8 L POC ABG pO2 Sodium Potassium Chloride Carbon Dioxide BUN Creatinine Glucose POC Glucose 168 H 282 H Calcium Phosphorus Lactate Dehydrogenase Total Creatine Kinase NT-Pro-B Natriuret Pep Albumin Sqgmy-1-Baivxzdqv Zldzf-5-Gzmnwtrcf Beta Globulins PEP Interpretation Cholesterol LDL Cholesterol Direct 04/02/16 04/02/16 04/02/16 05:00 05:00 06:27 WBC 12.4 H RBC Hgb Hct MCV 81 L MCH 26 L MCHC Plt Count Lymph % (Auto) 6.4 L Jay % (Auto) 13.3 H Lymph # 0.8 L Jay # 1.7 H Baso # Seg Neutrophils % 79.4 H Seg Neuts % (Manual) Lymphocytes % (Manual) Seg Neutrophils # 9.9 H Seg Neutrophils # Man Lymphocytes # (Manual) Monocytes # (Manual) APTT Heparin Anti-Xa Level POC ABG pH POC ABG pCO2 POC ABG pO2 Sodium 146 H Potassium Chloride Carbon Dioxide BUN Creatinine Glucose 334 H POC Glucose 317 H Calcium 8.0 L Phosphorus Lactate Dehydrogenase Total Creatine Kinase NT-Pro-B Natriuret Pep Albumin Lkpmm-7-Kmnjcuwju Guksy-9-Nwbjyjqmd Beta Globulins PEP Interpretation Cholesterol LDL Cholesterol Direct 04/02/16 04/02/16 04/02/16 11:51 13:10 17:24 WBC RBC Hgb Hct MCV MCH MCHC Plt Count Lymph % (Auto) Jay % (Auto) Lymph # Jay # Baso # Seg Neutrophils % Seg Neuts % (Manual) Lymphocytes % (Manual) Seg Neutrophils # Seg Neutrophils # Man Lymphocytes # (Manual) Monocytes # (Manual) APTT Heparin Anti-Xa Level POC ABG pH 7.518 H POC ABG pCO2 POC ABG pO2 Sodium Potassium Chloride Carbon Dioxide BUN Creatinine Glucose POC Glucose 278 H 195 H Calcium Phosphorus Lactate Dehydrogenase Total Creatine Kinase NT-Pro-B Natriuret Pep Albumin Juntq-1-Utveiqvbe Fidla-8-Sljqembhs Beta Globulins PEP Interpretation Cholesterol LDL Cholesterol Direct 04/03/16 04/03/16 04/03/16 00:18 04:10 04:10 WBC 14.3 H RBC Hgb Hct MCV 81 L MCH 26 L MCHC Plt Count Lymph % (Auto) 9.0 L Jay % (Auto) 10.7 H Lymph # Jay # 1.5 H Baso # 0.2 H Seg Neutrophils % 78.5 H Seg Neuts % (Manual) Lymphocytes % (Manual) Seg Neutrophils # 11.3 H Seg Neutrophils # Man Lymphocytes # (Manual) Monocytes # (Manual) APTT Heparin Anti-Xa Level POC ABG pH POC ABG pCO2 POC ABG pO2 Sodium 148 H Potassium Chloride 108.1 H Carbon Dioxide BUN 21 H Creatinine Glucose 227 H POC Glucose 144 H Calcium 8.2 L Phosphorus Lactate Dehydrogenase Total Creatine Kinase NT-Pro-B Natriuret Pep Albumin Egyuq-6-Gfozqvuer Owztk-3-Fuvbxgsrr Beta Globulins PEP Interpretation Cholesterol LDL Cholesterol Direct 04/03/16 04/03/16 04/04/16 11:14 17:10 04:00 WBC 14.5 H RBC Hgb Hct MCV 81 L MCH 26 L MCHC Plt Count Lymph % (Auto) 7.2 L Jay % (Auto) 7.6 H Lymph # 1.0 L Jay # 1.1 H Baso # Seg Neutrophils % 84.5 H Seg Neuts % (Manual) Lymphocytes % (Manual) Seg Neutrophils # 12.3 H Seg Neutrophils # Man Lymphocytes # (Manual) Monocytes # (Manual) APTT Heparin Anti-Xa Level POC ABG pH POC ABG pCO2 POC ABG pO2 Sodium Potassium Chloride Carbon Dioxide BUN Creatinine Glucose POC Glucose 267 H 212 H Calcium Phosphorus Lactate Dehydrogenase Total Creatine Kinase NT-Pro-B Natriuret Pep Albumin Thyto-0-Rhutijpuw Pzyeo-2-Qeacwczrn Beta Globulins PEP Interpretation Cholesterol LDL Cholesterol Direct 04/04/16 04/04/16 04/04/16 05:00 09:55 09:55 WBC RBC Hgb 11.5 L Hct MCV MCH MCHC Plt Count Lymph % (Auto) Jay % (Auto) Lymph # Jay # Baso # Seg Neutrophils % Seg Neuts % (Manual) Lymphocytes % (Manual) Seg Neutrophils # Seg Neutrophils # Man Lymphocytes # (Manual) Monocytes # (Manual) APTT 42.1 H Heparin Anti-Xa Level POC ABG pH POC ABG pCO2 POC ABG pO2 Sodium 146 H Potassium Chloride Carbon Dioxide BUN 22 H Creatinine Glucose 128 H POC Glucose Calcium Phosphorus Lactate Dehydrogenase Total Creatine Kinase NT-Pro-B Natriuret Pep Albumin Vmhbp-1-Onidsazpj Lrfkn-5-Jbcbtbyvm Beta Globulins PEP Interpretation Cholesterol LDL Cholesterol Direct 04/04/16 04/04/16 04/04/16 11:45 17:49 17:55 WBC RBC Hgb Hct MCV MCH MCHC Plt Count Lymph % (Auto) Jay % (Auto) Lymph # Jay # Baso # Seg Neutrophils % Seg Neuts % (Manual) Lymphocytes % (Manual) Seg Neutrophils # Seg Neutrophils # Man Lymphocytes # (Manual) Monocytes # (Manual) APTT Heparin Anti-Xa Level 1.19 H POC ABG pH POC ABG pCO2 POC ABG pO2 Sodium Potassium Chloride Carbon Dioxide BUN Creatinine Glucose POC Glucose 231 H 186 H Calcium Phosphorus Lactate Dehydrogenase Total Creatine Kinase NT-Pro-B Natriuret Pep Albumin Srbin-5-Ofmhhohfw Qyjnz-5-Tpfighful Beta Globulins PEP Interpretation Cholesterol LDL Cholesterol Direct 04/05/16 04/05/16 04/05/16 00:35 05:32 05:42 WBC RBC Hgb Hct MCV MCH MCHC Plt Count Lymph % (Auto) Jay % (Auto) Lymph # Jay # Baso # Seg Neutrophils % Seg Neuts % (Manual) Lymphocytes % (Manual) Seg Neutrophils # Seg Neutrophils # Man Lymphocytes # (Manual) Monocytes # (Manual) APTT Heparin Anti-Xa Level POC ABG pH 7.491 H POC ABG pCO2 POC ABG pO2 Sodium Potassium Chloride Carbon Dioxide BUN Creatinine Glucose POC Glucose 192 H 242 H Calcium Phosphorus Lactate Dehydrogenase Total Creatine Kinase NT-Pro-B Natriuret Pep Albumin Bpisv-7-Rmkbtqfct Kvses-3-Ityjtvvwc Beta Globulins PEP Interpretation Cholesterol LDL Cholesterol Direct 04/05/16 04/05/16 04/05/16 06:20 06:20 12:19 WBC 13.9 H RBC Hgb 11.6 L Hct MCV 81 L MCH 26 L MCHC Plt Count Lymph % (Auto) 9.6 L Jay % (Auto) 8.7 H Lymph # Jay # 1.2 H Baso # Seg Neutrophils % 80.9 H Seg Neuts % (Manual) Lymphocytes % (Manual) Seg Neutrophils # 11.3 H Seg Neutrophils # Man Lymphocytes # (Manual) Monocytes # (Manual) APTT Heparin Anti-Xa Level POC ABG pH POC ABG pCO2 POC ABG pO2 Sodium 148 H Potassium Chloride Carbon Dioxide BUN 23 H Creatinine Glucose 242 H POC Glucose 187 H Calcium Phosphorus Lactate Dehydrogenase Total Creatine Kinase NT-Pro-B Natriuret Pep Albumin Bihhz-5-Aytsksbyo Mzger-5-Agpetvsou Beta Globulins PEP Interpretation Cholesterol LDL Cholesterol Direct 04/05/16 04/05/16 04/06/16 17:10 23:45 05:23 WBC 13.0 H RBC Hgb Hct MCV 82 L MCH 26 L MCHC 31 L Plt Count Lymph % (Auto) 6.7 L Jay % (Auto) 8.3 H Lymph # 0.9 L Jay # 1.1 H Baso # Seg Neutrophils % 84.6 H Seg Neuts % (Manual) Lymphocytes % (Manual) Seg Neutrophils # 11.0 H Seg Neutrophils # Man Lymphocytes # (Manual) Monocytes # (Manual) APTT Heparin Anti-Xa Level POC ABG pH POC ABG pCO2 POC ABG pO2 Sodium Potassium Chloride Carbon Dioxide BUN Creatinine Glucose POC Glucose 169 H 202 H Calcium Phosphorus Lactate Dehydrogenase Total Creatine Kinase NT-Pro-B Natriuret Pep Albumin Kjdfy-2-Cgidfebxt Ycuqi-6-Fysrtfktk Beta Globulins PEP Interpretation Cholesterol LDL Cholesterol Direct 04/06/16 04/06/16 04/06/16 05:23 05:23 06:11 WBC RBC Hgb Hct MCV MCH MCHC Plt Count Lymph % (Auto) Jay % (Auto) Lymph # Jay # Baso # Seg Neutrophils % Seg Neuts % (Manual) Lymphocytes % (Manual) Seg Neutrophils # Seg Neutrophils # Man Lymphocytes # (Manual) Monocytes # (Manual) APTT Heparin Anti-Xa Level 0.21 L POC ABG pH POC ABG pCO2 POC ABG pO2 Sodium 153 H Potassium Chloride 111.3 H Carbon Dioxide BUN 22 H Creatinine Glucose 62 L POC Glucose 56 L Calcium Phosphorus Lactate Dehydrogenase Total Creatine Kinase NT-Pro-B Natriuret Pep Albumin Anvno-6-Obfmjmoqn Cyegc-2-Qkwwrcntb Beta Globulins PEP Interpretation Cholesterol LDL Cholesterol Direct
--- NOTE | 2016-04-06 15:29 | Progress Note ---
Assessment and Plan Assessment and plan: Acute respiratory failure. Patient extubated, transferred to telemetry. Pulmonology following Acute ischemic stroke. CT scan revealed acute ischemic infarct in the right cerebellum. MRI reveals subacute infarct in the right cerebellar hemisphere with associated edema and mass effect as previously described. Patient also with multiple areas of acute infarct in the left occipital and frontal lobes that are most likely embolic. For LIZZIE. Hypernatremia. Na 153 today. Continue to monitor BMP. Will recheck daily. Continue free water. Encephalopathy. EEG normal. Accelerated hypertension. Blood pressure improving . CAD-stable, continue current beta em, statin Diabetes mellitus 2. Cont Levemir . History of aortic dissection status post repair. History of prosthetic aortic valve replacement. Echo with normal function on 2015. UTI with Group B strep. continue IV ceftriaxone Seizure Disorder. Continue Keppra DVT prophylaxis-Lovenox GI prophylaxis-Pepcid History Interval history: patient with stroke, encephalopathy, seizure disorder still lethargic Hospitalist Physical - Physical exam Narrative exam: Gen: Not in acute distress, ill looking HEENT: Normocephalic, atraumatic Neck: supple no JVD Lungs clear to auscultation bilaterally, no crackles or wheeze Heart S1-S2 regular, no murmurs, rubs or gallops Abdomen:soft, NT, ND,, normal bowel sounds Extremities :no edema, no clubbing or cyanosis Neuro: lethargic - Constitutional Vitals: Temp Pulse Resp BP Pulse Ox 97.0 F L 91 H 20 130/82 96 04/06/16 11:39 04/06/16 11:39 04/06/16 11:39 04/06/16 11:39 04/06/16 11:39 General appearance: Present: no acute distress Results - Labs CBC & Chem 7: 04/08/16 06:30 04/07/16 05:11 Labs: Laboratory Last Values WBC 13.0 K/mm3 (4.5-11.0) H 04/06/16 05:23 RBC 4.55 M/mm3 (3.65-5.03) 04/06/16 05:23 Hgb 11.8 gm/dl (11.8-15.2) 04/06/16 05:23 Hct 37.4 % (35.5-45.6) 04/06/16 05:23 MCV 82 fl (84-94) L 04/06/16 05:23 MCH 26 pg (28-32) L 04/06/16 05:23 MCHC 31 % (32-34) L 04/06/16 05:23 RDW 14.9 % (13.2-15.2) 04/06/16 05:23 Plt Count 342 K/mm3 (140-440) 04/06/16 05:23 Lymph % (Auto) 6.7 % (13.4-35.0) L 04/06/16 05:23 Gregory % (Auto) 8.3 % (0.0-7.3) H 04/06/16 05:23 Eos % (Auto) 0.1 % (0.0-4.3) 04/06/16 05:23 Baso % (Auto) 0.3 % (0.0-1.8) 04/06/16 05:23 Lymph # 0.9 K/mm3 (1.2-5.4) L 04/06/16 05:23 Gregory # 1.1 K/mm3 (0.0-0.8) H 04/06/16 05:23 Eos # 0.0 K/mm3 (0.0-0.4) 04/06/16 05:23 Baso # 0.0 K/mm3 (0.0-0.1) 04/06/16 05:23 Add Manual Diff Complete 03/25/16 05:56 Total Counted 100 03/25/16 05:56 Seg Neutrophils % 84.6 % (40.0-70.0) H 04/06/16 05:23 Seg Neuts % (Manual) 91.0 % (40.0-70.0) H 03/25/16 05:56 Band Neutrophils % 1.0 % 03/25/16 05:56 Lymphocytes % (Manual) 4.0 % (13.4-35.0) L 03/25/16 05:56 Reactive Lymphs % (Man) 0 % 03/25/16 05:56 Monocytes % (Manual) 4.0 % (0.0-7.3) 03/25/16 05:56 Eosinophils % (Manual) 0 % (0.0-4.3) 03/25/16 05:56 Basophils % (Manual) 0 % (0.0-1.8) 03/25/16 05:56 Metamyelocytes % 0 % 03/25/16 05:56 Myelocytes % 0 % 03/25/16 05:56 Promyelocytes % 0 % 03/25/16 05:56 Blast Cells % 0 % 03/25/16 05:56 Nucleated RBC % Not Reportable 03/25/16 05:56 Seg Neutrophils # 11.0 K/mm3 (1.8-7.7) H 04/06/16 05:23 Seg Neutrophils # Man 19.4 K/mm3 (1.8-7.7) H 03/25/16 05:56 Band Neutrophils # 0.2 K/mm3 03/25/16 05:56 Lymphocytes # (Manual) 0.9 K/mm3 (1.2-5.4) L 03/25/16 05:56 Abs React Lymphs (Man) 0.0 K/mm3 03/25/16 05:56 Monocytes # (Manual) 0.9 K/mm3 (0.0-0.8) H 03/25/16 05:56 Eosinophils # (Manual) 0.0 K/mm3 (0.0-0.4) 03/25/16 05:56 Basophils # (Manual) 0.0 K/mm3 (0.0-0.1) 03/25/16 05:56 Metamyelocytes # 0.0 K/mm3 03/25/16 05:56 Myelocytes # 0.0 K/mm3 03/25/16 05:56 Promyelocytes # 0.0 K/mm3 03/25/16 05:56 Blast Cells # 0.0 K/mm3 03/25/16 05:56 WBC Morphology Not Reportable 03/25/16 05:56 Hypersegmented Neuts Not Reportable 03/25/16 05:56 Hyposegmented Neuts Not Reportable 03/25/16 05:56 Hypogranular Neuts Not Reportable 03/25/16 05:56 Smudge Cells Not Reportable 03/25/16 05:56 Toxic Granulation Not Reportable 03/25/16 05:56 Toxic Vacuolation Not Reportable 03/25/16 05:56 Dohle Bodies Not Reportable 03/25/16 05:56 Pelger-Huet Anomaly Not Reportable 03/25/16 05:56 Corina Rods Not Reportable 03/25/16 05:56 Platelet Estimate Appears normal 03/25/16 05:56 Clumped Platelets Not Reportable 03/25/16 05:56 Plt Clumps, EDTA Not Reportable 03/25/16 05:56 Large Platelets Not Reportable 03/25/16 05:56 Giant Platelets Not Reportable 03/25/16 05:56 Platelet Satelliting Not Reportable 03/25/16 05:56 Plt Morphology Comment Not Reportable 03/25/16 05:56 RBC Morphology Normal 03/25/16 05:56 Dimorphic RBCs Not Reportable 03/25/16 05:56 Polychromasia Not Reportable 03/25/16 05:56 Hypochromasia Not Reportable 03/25/16 05:56 Poikilocytosis Not Reportable 03/25/16 05:56 Anisocytosis Not Reportable 03/25/16 05:56 Microcytosis Not Reportable 03/25/16 05:56 Macrocytosis Not Reportable 03/25/16 05:56 Spherocytes Not Reportable 03/25/16 05:56 Pappenheimer Bodies Not Reportable 03/25/16 05:56 Sickle Cells Not Reportable 03/25/16 05:56 Target Cells Not Reportable 03/25/16 05:56 Tear Drop Cells Not Reportable 03/25/16 05:56 Ovalocytes Not Reportable 03/25/16 05:56 Helmet Cells Not Reportable 03/25/16 05:56 [place] Bodies Not Reportable 03/25/16 05:56 [place] Rings Not Reportable 03/25/16 05:56 [place] Cells Not Reportable 03/25/16 05:56 Bite Cells Not Reportable 03/25/16 05:56 Crenated Cell Not Reportable 03/25/16 05:56 Elliptocytes Not Reportable 03/25/16 05:56 Acanthocytes (Spur) Not Reportable 03/25/16 05:56 Rouleaux Not Reportable 03/25/16 05:56 Hemoglobin C Crystals Not Reportable 03/25/16 05:56 Schistocytes Not Reportable 03/25/16 05:56 Malaria parasites Not Reportable 03/25/16 05:56 Gideon Bodies Not Reportable 03/25/16 05:56 Hem Pathologist Commnt No 03/25/16 05:56 PT 13.5 Sec. (12.2-14.9) 04/04/16 09:55 INR 1.04 (0.87-1.13) 04/04/16 09:55 APTT 42.1 Sec. (24.2-36.6) H 04/04/16 09:55 Heparin Anti-Xa Level 0.21 U.I./ml (0.3-0.7) L 04/06/16 05:23 POC ABG pH 7.491 (7.35-7.45) H 04/05/16 05:32 POC ABG pCO2 42.3 (35-45) 04/05/16 05:32 POC ABG pO2 90 (80-105) 04/05/16 05:32 POC ABG HCO3 32.3 04/05/16 05:32 POC ABG Total CO2 34 04/05/16 05:32 POC ABG O2 Sat 98 04/05/16 05:32 POC ABG Base Excess 9 04/05/16 05:32 VBG pH 7.418 (7.320-7.420) 03/24/16 14:00 FiO2 28 % 04/05/16 05:32 Sodium 153 mmol/L (137-145) H 04/06/16 05:23 Potassium 3.9 mmol/L (3.6-5.0) 04/06/16 05:23 Chloride 111.3 mmol/L (98-107) H 04/06/16 05:23 Carbon Dioxide 29 mmol/L (22-30) 04/06/16 05:23 Anion Gap 17 mmol/L 04/06/16 05:23 BUN 22 mg/dL (9-20) H 04/06/16 05:23 Creatinine 1.3 mg/dL (0.8-1.5) 04/06/16 05:23 Estimated GFR > 60 ml/min 04/06/16 05:23 BUN/Creatinine Ratio 16.92 % 04/06/16 05:23 Glucose 62 mg/dL (75-100) L 04/06/16 05:23 POC Glucose 56 (70-105) L 04/06/16 06:11 Hemoglobin A1c 9.6 % (4-6) H 03/24/16 14:00 Lactic Acid 2.8 mmol/L (0.7-2.1) H 03/24/16 15:26 Calcium 8.6 mg/dL (8.4-10.2) 04/06/16 05:23 Phosphorus 2.3 mg/dL (2.5-4.5) L D 03/30/16 04:00 Magnesium 1.9 mg/dL (1.7-2.3) 03/30/16 04:00 Total Bilirubin 0.3 mg/dL (0.1-1.2) 03/24/16 14:00 AST 24 units/L (5-40) 03/24/16 14:00 ALT 38 units/L (7-56) 03/24/16 14:00 Alkaline Phosphatase 77 units/L (35-129) 03/24/16 14:00 Lactate Dehydrogenase 460 units/L (91-180) H 03/25/16 05:56 Total Creatine Kinase 356 units/L (55-170) H 03/28/16 13:29 Troponin T < 0.010 ng/mL (0.00-0.029) 03/28/16 13:29 NT-Pro-B Natriuret Pep 897.9 pg/mL (0-900) 04/03/16 04:10 Serum Total Protein 7.1 g/dL (6.1-8.1) 03/25/16 13:00 Total Protein 7.4 g/dL (6.3-8.2) 03/24/16 14:00 Albumin 3.4 g/dL (3.8-4.8) L 03/25/16 13:00 Albumin/Globulin Ratio 0.9 % 03/24/16 14:00 Xasgq-6-Ftphbvyss 0.4 g/dL (0.2-0.3) H 03/25/16 13:00 Jkvoh-4-Oxvxfeefh 1.1 g/dL (0.5-0.9) H 03/25/16 13:00 Beta Globulins 0.6 g/dL (0.2-0.5) H 03/25/16 13:00 Qfwl-7-Jjqwjqsfbkrof 2.46 mg/L (<=2.51) 03/25/16 13:00 Gamma Globulins 1.3 g/dL (0.8-1.7) 03/25/16 13:00 Abnorm Protein Band 1 see below (()) 03/25/16 13:00 PEP Interpretation see below (()) H 03/25/16 13:00 Triglycerides 88 mg/dL (2-149) 03/24/16 17:58 Cholesterol 221 mg/dL (50-199) H 03/24/16 17:58 LDL Cholesterol Direct 146 mg/dL (50-130) H 03/24/16 17:58 HDL Cholesterol 58 mg/dL (40-59) 03/24/16 17:58 Cholesterol/HDL Ratio 3.81 % 03/24/16 17:58 Urine Color Yellow (Yellow) 03/24/16 14:27 Urine Turbidity Clear (Clear) 03/24/16 14:27 Urine pH 5.0 (5.0-7.0) 03/24/16 14:27 Ur Specific Wall 1.017 (1.003-1.030) 03/24/16 14:27 Urine Protein <15 mg/dl mg/dL (Negative) 03/24/16 14:27 Urine Glucose (UA) >=500 mg/dL (Negative) 03/24/16 14:27 Urine Ketones Neg mg/dL (Negative) 03/24/16 14:27 Urine Blood Sm (Negative) 03/24/16 14:27 Urine Nitrite Neg (Negative) 03/24/16 14:27 Urine Bilirubin Neg (Negative) 03/24/16 14:27 Urine Urobilinogen < 2.0 mg/dL (<2.0) 03/24/16 14:27 Ur Leukocyte Esterase Neg (Negative) 03/24/16 14:27 Urine WBC (Auto) 2.0 /HPF (0.0-6.0) 03/24/16 14:27 Urine RBC (Auto) < 1.0 /HPF (0.0-6.0) 03/24/16 14:27 U Epithel Cells (Auto) 4.0 /HPF (0-13.0) 03/24/16 14:27 Hyaline Casts 1 /LPF 03/24/16 14:27 Urine Mucus Few /HPF 03/24/16 14:27 Ketones 1.0 mg/dL (0.2-2.8) 03/24/16 14:00
[2016-04-07] MEDS: NOVOLOG SUB-Q SCH ×5 (00:02→18:17)
[2016-04-07] MEDS: HEPARIN/ 0.45% NACL-25,000 UNIT/500 ML 500 ML IV SCH (03:54)
[2016-04-07 05:53] LABS: Hematocrit 36.6 % (35.5-45.6); Hemoglobin 11.5 gm/dl (11.8-15.2); Mean Corpuscular HGB Conc 31 % (32-34); Mean Corpuscular Volume 82 fl (84-94); Platelet Count 364 K/mm3 (140-440); Red Blood Count 4.44 M/mm3 (3.65-5.03); Red Cell Distribution Width 14.7 % (13.2-15.2); White Blood Count 12.5 K/mm3 (4.5-11.0)
[2016-04-07 05:56] LABS: Mean Corpuscular Hemoglobin 26 pg (28-32)
[2016-04-07 06:13] LABS: Anion Gap 15 mmol/L; Blood Urea Nitrogen 28 mg/dL (9-20); Calcium 8.7 mg/dL (8.4-10.2); Carbon Dioxide 30 mmol/L (22-30); Chloride 109.5 mmol/L (98-107); Glucose 264 mg/dL (75-100); Sodium 150 mmol/L (137-145)
[2016-04-07] MEDS ORDERED: HURRICAINE ONE 20% TOPICAL SPRAY MM (08:19)
[2016-04-07] MEDS ORDERED: VERSED IV ONE (08:19)
[2016-04-07] MEDS ORDERED: SUBLIMAZE ONE (08:19)
[2016-04-07] MEDS ORDERED: NACL 0.9% 250ML 0 ML ONE (08:20)
[2016-04-07] MEDS ORDERED: HURRICAINE ONE 20% TOPICAL SPRAY MM NR (09:00)
[2016-04-07] MEDS ORDERED: VERSED IV NR (09:00)
[2016-04-07] MEDS ORDERED: SUBLIMAZE IV NR (09:00)
--- NOTE | 2016-04-07 09:27 | Progress Note ---
Assessment and Plan Acute respiratory failure now extubated no evidence of PE by V\Q scan normal ventricular and atrial size, EF 65% on echo this admission. Acute CVA LIZZIE - very dense echo contrast noted in the thoracic aorta consistent with low flow state, severe concentric LVH, normal functioning bioprosthetic aortic valve Abnormal ECG no significant CAD by [facility] 08/2015 Hx of aortic dissection s/p repair Hx of bioprosthetic aortic valve replacement Hypertension Plan: Recommend anticoagulation with coumadin given the density of echo contrast in the thoracic aorta which is consistent with low flow state No discrete clot or thrombus identified Subjective Date of service: 04/07/16 Principal diagnosis: CVA Interval history: LIZZIE performed today without complications Objective Vital Signs Temp Pulse Pulse Pulse Pulse Pulse Pulse 04/07/16 09:18 91 H 04/07/16 09:15 86 04/07/16 09:10 87 04/07/16 09:05 90 04/07/16 09:00 89 04/07/16 08:53 87 04/07/16 07:51 98.8 F 87 04/07/16 05:28 97.6 F 84 04/07/16 00:29 98.6 F 89 04/06/16 22:55 04/06/16 20:06 85 04/06/16 19:58 98.4 F 90 04/06/16 16:06 96.2 F L 88 04/06/16 11:39 97.0 F L 91 H 04/06/16 11:00 98 H Resp Resp Resp Resp BP BP BP 04/07/16 09:18 24 178/105 04/07/16 09:15 30 H 164/105 04/07/16 09:10 22 189/116 04/07/16 09:05 24 199/118 04/07/16 09:00 27 H 181/98 04/07/16 08:53 04/07/16 07:51 20 150/94 04/07/16 05:28 20 04/07/16 00:29 18 04/06/16 22:55 24 04/06/16 20:06 04/06/16 19:58 18 04/06/16 16:06 20 04/06/16 11:39 20 04/06/16 11:00 BP BP Pulse Ox Pulse Ox Pulse Ox Pulse Ox 04/07/16 09:18 100 04/07/16 09:15 100 04/07/16 09:10 97 04/07/16 09:05 97 04/07/16 09:00 97 04/07/16 08:53 166/100 96 04/07/16 07:51 97 04/07/16 05:28 121/68 92 04/07/16 00:29 110/64 94 04/06/16 22:55 04/06/16 20:06 04/06/16 19:58 136/86 99 04/06/16 16:06 121/76 96 04/06/16 11:39 130/82 96 04/06/16 11:00 - Physical Examination General: No Apparent Distress HEENT: Positive: PERRL Neck: Positive: neck supple Cardiac: Positive: Reg Rate and Rhythm Lungs: Positive: Decreased Breath Sounds Neuro: Positive: Weakness Abdomen: Positive: Soft Skin: Positive: Clear Extremities: Absent: edema - Labs and Meds CBC 04/07/16 Range/Units 05:11 WBC 12.5 H (4.5-11.0) K/mm3 RBC 4.44 (3.65-5.03) M/mm3 Hgb 11.5 L (11.8-15.2) gm/dl Hct 36.6 (35.5-45.6) % Plt Count 364 (140-440) K/mm3 Comprehensive Metabolic Panel 04/07/16 Range/Units 05:11 Sodium 150 H (137-145) mmol/L Potassium 4.0 (3.6-5.0) mmol/L Chloride 109.5 H (98-107) mmol/L Carbon Dioxide 30 (22-30) mmol/L BUN 28 H (9-20) mg/dL Creatinine 1.4 (0.8-1.5) mg/dL Glucose 264 H (75-100) mg/dL Calcium 8.7 (8.4-10.2) mg/dL - Imaging and Cardiology EKG: image reviewed
--- NOTE | 2016-04-07 09:35 | Progress Note ---
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 Notes and reports reviewed. Cardiology is recommending anticoagulation based on decreased flow in the aorta. No problem with anticoagulation from a neurology standpoint. Pt scheduled to start coumadin this evening. Fine for rehab from a neuro standpoint. Continue Keppra for seizures. Heparin for VTE prophylaxis. Thank you for this consult. Call with questions. Subjective Date of service: 04/07/16 Principal diagnosis: CVA Interval history: No complaints. Just completed LIZZIE. Pt initially seen on 03/29, has since had MRI Brain that showed embolic strokes on the left, r cerebellar stroke. Objective - Vital Sign Vital Signs - 12hr 04/06/16 04/07/16 04/07/16 22:55 00:29 05:28 Temperature 98.6 F 97.6 F Pulse Rate [ 89 84 From Monitor] Pulse Rate [ Intra-Procedure ] Pulse Rate [ Left Radial] Pulse Rate [ Post-Procedure] Pulse Rate [Pre -Procedure] Respiratory 18 20 Rate Respiratory 24 Rate [ Generalized] Respiratory Rate [Intra- Procedure] Respiratory Rate [Post- Procedure] Blood Pressure [Intra- Procedure] Blood Pressure [Left Arm] Blood Pressure [Post-Procedure ] Blood Pressure [Pre-Procedure] Blood Pressure 110/64 121/68 [Right Radial Artery] O2 Sat by Pulse 94 92 Oximetry O2 Sat by Pulse Oximetry [ Intra-Procedure ] O2 Sat by Pulse Oximetry [Post -Procedure] O2 Sat by Pulse Oximetry [Pre- Procedure] 04/07/16 04/07/16 04/07/16 07:51 08:53 09:00 Temperature 98.8 F Pulse Rate [ From Monitor] Pulse Rate [ 89 Intra-Procedure ] Pulse Rate [ 87 Left Radial] Pulse Rate [ Post-Procedure] Pulse Rate [Pre 87 -Procedure] Respiratory 20 Rate Respiratory Rate [ Generalized] Respiratory 27 H Rate [Intra- Procedure] Respiratory Rate [Post- Procedure] Blood Pressure 181/98 [Intra- Procedure] Blood Pressure 150/94 [Left Arm] Blood Pressure [Post-Procedure ] Blood Pressure 166/100 [Pre-Procedure] Blood Pressure [Right Radial Artery] O2 Sat by Pulse 97 Oximetry O2 Sat by Pulse 97 Oximetry [ Intra-Procedure ] O2 Sat by Pulse Oximetry [Post -Procedure] O2 Sat by Pulse 96 Oximetry [Pre- Procedure] 04/07/16 04/07/16 04/07/16 09:05 09:10 09:15 Temperature Pulse Rate [ From Monitor] Pulse Rate [ 90 87 86 Intra-Procedure ] Pulse Rate [ Left Radial] Pulse Rate [ Post-Procedure] Pulse Rate [Pre -Procedure] Respiratory Rate Respiratory Rate [ Generalized] Respiratory 24 22 30 H Rate [Intra- Procedure] Respiratory Rate [Post- Procedure] Blood Pressure 199/118 189/116 164/105 [Intra- Procedure] Blood Pressure [Left Arm] Blood Pressure [Post-Procedure ] Blood Pressure [Pre-Procedure] Blood Pressure [Right Radial Artery] O2 Sat by Pulse Oximetry O2 Sat by Pulse 97 97 100 Oximetry [ Intra-Procedure ] O2 Sat by Pulse Oximetry [Post -Procedure] O2 Sat by Pulse Oximetry [Pre- Procedure] 04/07/16 09:18 Temperature Pulse Rate [ From Monitor] Pulse Rate [ Intra-Procedure ] Pulse Rate [ Left Radial] Pulse Rate [ 91 H Post-Procedure] Pulse Rate [Pre -Procedure] Respiratory Rate Respiratory Rate [ Generalized] Respiratory Rate [Intra- Procedure] Respiratory 24 Rate [Post- Procedure] Blood Pressure [Intra- Procedure] Blood Pressure [Left Arm] Blood Pressure 178/105 [Post-Procedure ] Blood Pressure [Pre-Procedure] Blood Pressure [Right Radial Artery] O2 Sat by Pulse Oximetry O2 Sat by Pulse Oximetry [ Intra-Procedure ] O2 Sat by Pulse 100 Oximetry [Post -Procedure] O2 Sat by Pulse Oximetry [Pre- Procedure] - EENT EENT: PERRL - Respiratory Respiratory: lungs clear - Cardiovascular Cardiovascular: regular rate - Neurologic Cranial nerve examination: PERRL, EOMI, tongue midline, facial droop Motor examination - right side: 4/5: biceps, triceps, wrist flexion, wrist extension, cotton wringer, hip flexors, knee extensors, dorsiflexion, toe extension (EHL) , plantarflexion Motor examination - left side: 4/5: biceps, triceps, wrist flexion, wrist extension, cotton wringer, hip flexors, knee extensors, dorsiflexion, toe extension (EHL) , plantarflexion Reflexes: 0: ankle, bicep, knee, tricep Cerebellar examination: dysmetria - Laboratory Findings CBC and BMP: 04/07/16 05:11 04/07/16 05:11 Abnormal Lab Findings: Abnormal Labs 03/24/16 03/24/16 03/24/16 17:58 20:25 23:23 WBC RBC Hgb Hct MCV MCH MCHC Plt Count Lymph % (Auto) [place] % (Auto) Lymph # [place] # Baso # Seg Neutrophils % Seg Neuts % (Manual) Lymphocytes % (Manual) Seg Neutrophils # Seg Neutrophils # Man Lymphocytes # (Manual) Monocytes # (Manual) APTT Heparin Anti-Xa Level POC ABG pH POC ABG pCO2 POC ABG pO2 Sodium 169 H* Potassium 3.5 L Chloride 130.3 H Carbon Dioxide BUN 28 H Creatinine 1.8 H Glucose POC Glucose 112 H Calcium Phosphorus Lactate Dehydrogenase Total Creatine Kinase NT-Pro-B Natriuret Pep Albumin Wreyf-2-Uufgibhmv Muhnr-7-Xeqtgxdxm Beta Globulins PEP Interpretation Cholesterol 221 H LDL Cholesterol Direct 146 H 03/25/16 03/25/16 03/25/16 05:56 05:56 05:56 WBC 21.3 H RBC 6.32 H Hgb 16.7 H Hct 52.7 H MCV 83 L MCH 27 L MCHC Plt Count Lymph % (Auto) [place] % (Auto) Lymph # [place] # Baso # Seg Neutrophils % Seg Neuts % (Manual) 91.0 H Lymphocytes % (Manual) 4.0 L Seg Neutrophils # Seg Neutrophils # Man 19.4 H Lymphocytes # (Manual) 0.9 L Monocytes # (Manual) 0.9 H APTT Heparin Anti-Xa Level POC ABG pH POC ABG pCO2 POC ABG pO2 Sodium 172 H* Potassium 3.5 L Chloride 130.4 H Carbon Dioxide BUN 29 H Creatinine 1.8 H Glucose 187 H POC Glucose Calcium Phosphorus Lactate Dehydrogenase 460 H Total Creatine Kinase NT-Pro-B Natriuret Pep Albumin Kdfrb-2-Ndcgabeuj Wbwqe-8-Gwyqzeaas Beta Globulins PEP Interpretation Cholesterol LDL Cholesterol Direct 03/25/16 03/25/16 03/25/16 07:55 12:19 13:00 WBC RBC Hgb Hct MCV MCH MCHC Plt Count Lymph % (Auto) [place] % (Auto) Lymph # [place] # Baso # Seg Neutrophils % Seg Neuts % (Manual) Lymphocytes % (Manual) Seg Neutrophils # Seg Neutrophils # Man Lymphocytes # (Manual) Monocytes # (Manual) APTT Heparin Anti-Xa Level POC ABG pH POC ABG pCO2 POC ABG pO2 Sodium Potassium Chloride Carbon Dioxide BUN Creatinine Glucose POC Glucose 231 H 314 H Calcium Phosphorus Lactate Dehydrogenase Total Creatine Kinase NT-Pro-B Natriuret Pep Albumin 3.4 L Awslt-7-Zpoevbfmg 0.4 H Glzbs-1-Srdfxaylj 1.1 H Beta Globulins 0.6 H PEP Interpretation see below H Cholesterol LDL Cholesterol Direct 03/25/16 03/25/16 03/26/16 16:41 22:45 08:32 WBC RBC Hgb Hct MCV MCH MCHC Plt Count Lymph % (Auto) [place] % (Auto) Lymph # [place] # Baso # Seg Neutrophils % Seg Neuts % (Manual) Lymphocytes % (Manual) Seg Neutrophils # Seg Neutrophils # Man Lymphocytes # (Manual) Monocytes # (Manual) APTT Heparin Anti-Xa Level POC ABG pH POC ABG pCO2 POC ABG pO2 Sodium Potassium Chloride Carbon Dioxide BUN Creatinine Glucose POC Glucose 444 H 326 H 360 H Calcium Phosphorus Lactate Dehydrogenase Total Creatine Kinase NT-Pro-B Natriuret Pep Albumin Cgfsa-1-Cllknlwpv Zhrrt-1-Xskbodqzx Beta Globulins PEP Interpretation Cholesterol LDL Cholesterol Direct 03/26/16 03/26/16 03/26/16 12:38 15:33 15:47 WBC RBC Hgb Hct MCV MCH MCHC Plt Count Lymph % (Auto) [place] % (Auto) Lymph # [place] # Baso # Seg Neutrophils % Seg Neuts % (Manual) Lymphocytes % (Manual) Seg Neutrophils # Seg Neutrophils # Man Lymphocytes # (Manual) Monocytes # (Manual) APTT Heparin Anti-Xa Level POC ABG pH 7.511 H POC ABG pCO2 26.5 L POC ABG pO2 70 L Sodium Potassium Chloride Carbon Dioxide BUN Creatinine Glucose POC Glucose 280 H 174 H Calcium Phosphorus Lactate Dehydrogenase Total Creatine Kinase NT-Pro-B Natriuret Pep Albumin Loltm-7-Zhvjjlplv Dmhqt-4-Rusmvpdhi Beta Globulins PEP Interpretation Cholesterol LDL Cholesterol Direct 03/26/16 03/26/16 03/26/16 16:47 16:47 18:51 WBC 14.0 H RBC 5.17 H Hgb Hct MCV MCH 26 L MCHC 31 L Plt Count 139 L Lymph % (Auto) [place] % (Auto) Lymph # [place] # Baso # Seg Neutrophils % Seg Neuts % (Manual) Lymphocytes % (Manual) Seg Neutrophils # Seg Neutrophils # Man Lymphocytes # (Manual) Monocytes # (Manual) APTT Heparin Anti-Xa Level POC ABG pH POC ABG pCO2 33.9 L POC ABG pO2 150 H Sodium 164 H* Potassium 3.4 L Chloride 128.5 H Carbon Dioxide BUN 30 H Creatinine 2.2 H Glucose 121 H POC Glucose Calcium 8.1 L Phosphorus Lactate Dehydrogenase Total Creatine Kinase NT-Pro-B Natriuret Pep Albumin Uuhce-0-Tmvzifrcq Jiihg-4-Mwypcbifl Beta Globulins PEP Interpretation Cholesterol LDL Cholesterol Direct 03/27/16 03/27/16 03/27/16 02:19 05:47 06:02 WBC RBC Hgb Hct MCV MCH MCHC Plt Count Lymph % (Auto) [place] % (Auto) Lymph # [place] # Baso # Seg Neutrophils % Seg Neuts % (Manual) Lymphocytes % (Manual) Seg Neutrophils # Seg Neutrophils # Man Lymphocytes # (Manual) Monocytes # (Manual) APTT Heparin Anti-Xa Level POC ABG pH POC ABG pCO2 27.3 L 30.3 L POC ABG pO2 50 L 112 H Sodium 158 H Potassium Chloride 126.7 H Carbon Dioxide 20 L BUN 25 H Creatinine 1.7 H Glucose POC Glucose Calcium 7.0 L Phosphorus Lactate Dehydrogenase Total Creatine Kinase NT-Pro-B Natriuret Pep Albumin Hztcw-8-Jyvvxhpon Oagji-9-Josewygvj Beta Globulins PEP Interpretation Cholesterol LDL Cholesterol Direct 03/27/16 03/27/16 03/27/16 07:51 09:20 11:45 WBC 14.2 H RBC Hgb Hct MCV 83 L MCH 27 L MCHC Plt Count 113 L Lymph % (Auto) [place] % (Auto) Lymph # [place] # Baso # Seg Neutrophils % Seg Neuts % (Manual) Lymphocytes % (Manual) Seg Neutrophils # Seg Neutrophils # Man Lymphocytes # (Manual) Monocytes # (Manual) APTT Heparin Anti-Xa Level POC ABG pH POC ABG pCO2 POC ABG pO2 Sodium Potassium Chloride Carbon Dioxide BUN Creatinine Glucose POC Glucose 124 H 241 H Calcium Phosphorus Lactate Dehydrogenase Total Creatine Kinase NT-Pro-B Natriuret Pep Albumin Oyhsp-0-Spfnqmmmb Gwlcg-1-Deoczlwdz Beta Globulins PEP Interpretation Cholesterol LDL Cholesterol Direct 03/27/16 03/27/16 03/28/16 16:39 22:03 03:29 WBC RBC Hgb Hct MCV MCH MCHC Plt Count Lymph % (Auto) [place] % (Auto) Lymph # [place] # Baso # Seg Neutrophils % Seg Neuts % (Manual) Lymphocytes % (Manual) Seg Neutrophils # Seg Neutrophils # Man Lymphocytes # (Manual) Monocytes # (Manual) APTT Heparin Anti-Xa Level POC ABG pH POC ABG pCO2 POC ABG pO2 Sodium Potassium Chloride Carbon Dioxide BUN Creatinine Glucose POC Glucose 266 H 167 H 241 H Calcium Phosphorus Lactate Dehydrogenase Total Creatine Kinase NT-Pro-B Natriuret Pep Albumin Crirv-9-Mknkrmllp Gueub-6-Mjblsdxyi Beta Globulins PEP Interpretation Cholesterol LDL Cholesterol Direct 03/28/16 03/28/16 03/28/16 05:00 05:00 05:00 WBC RBC Hgb Hct MCV 83 L MCH 27 L MCHC Plt Count 106 L Lymph % (Auto) [place] % (Auto) 10.1 H Lymph # [place] # 1.0 H Baso # Seg Neutrophils % 75.1 H Seg Neuts % (Manual) Lymphocytes % (Manual) Seg Neutrophils # Seg Neutrophils # Man Lymphocytes # (Manual) Monocytes # (Manual) APTT Heparin Anti-Xa Level POC ABG pH POC ABG pCO2 POC ABG pO2 Sodium 147 H D Potassium 3.1 L D Chloride 112.3 H Carbon Dioxide 21 L BUN Creatinine Glucose 208 H POC Glucose Calcium 7.0 L Phosphorus 2.2 L Lactate Dehydrogenase Total Creatine Kinase NT-Pro-B Natriuret Pep Albumin Chtfg-8-Xeoyvynyq Bkhus-5-Hfxckvktf Beta Globulins PEP Interpretation Cholesterol LDL Cholesterol Direct 03/28/16 03/28/16 03/28/16 05:14 08:41 10:56 WBC RBC Hgb Hct MCV MCH MCHC Plt Count Lymph % (Auto) [place] % (Auto) Lymph # [place] # Baso # Seg Neutrophils % Seg Neuts % (Manual) Lymphocytes % (Manual) Seg Neutrophils # Seg Neutrophils # Man Lymphocytes # (Manual) Monocytes # (Manual) APTT Heparin Anti-Xa Level POC ABG pH 7.457 H POC ABG pCO2 29.7 L 27.7 L POC ABG pO2 Sodium Potassium Chloride Carbon Dioxide BUN Creatinine Glucose POC Glucose 228 H Calcium Phosphorus Lactate Dehydrogenase Total Creatine Kinase NT-Pro-B Natriuret Pep Albumin Lsdgf-8-Wxuqexppp Ddkam-1-Jfqaujibm Beta Globulins PEP Interpretation Cholesterol LDL Cholesterol Direct 03/28/16 03/28/16 03/28/16 11:37 13:29 16:22 WBC RBC Hgb Hct MCV MCH MCHC Plt Count Lymph % (Auto) [place] % (Auto) Lymph # [place] # Baso # Seg Neutrophils % Seg Neuts % (Manual) Lymphocytes % (Manual) Seg Neutrophils # Seg Neutrophils # Man Lymphocytes # (Manual) Monocytes # (Manual) APTT Heparin Anti-Xa Level POC ABG pH POC ABG pCO2 POC ABG pO2 Sodium Potassium Chloride Carbon Dioxide BUN Creatinine Glucose POC Glucose 226 H 200 H Calcium Phosphorus Lactate Dehydrogenase Total Creatine Kinase 356 H NT-Pro-B Natriuret Pep Albumin Wqdvw-9-Sylwmzgna Psbhk-8-Smrkdmoue Beta Globulins PEP Interpretation Cholesterol LDL Cholesterol Direct 03/28/16 03/29/16 03/29/16 21:48 04:50 04:50 WBC RBC Hgb 11.5 L Hct 35.3 L MCV 81 L MCH 26 L MCHC Plt Count 97 L Lymph % (Auto) [place] % (Auto) 11.7 H Lymph # [place] # 1.1 H Baso # Seg Neutrophils % Seg Neuts % (Manual) Lymphocytes % (Manual) Seg Neutrophils # Seg Neutrophils # Man Lymphocytes # (Manual) Monocytes # (Manual) APTT Heparin Anti-Xa Level POC ABG pH POC ABG pCO2 POC ABG pO2 Sodium 136 L D Potassium 3.3 L Chloride Carbon Dioxide 20 L BUN Creatinine Glucose 386 H POC Glucose 188 H Calcium 6.8 L Phosphorus 1.6 L D Lactate Dehydrogenase Total Creatine Kinase NT-Pro-B Natriuret Pep Albumin Rtdkm-1-Ysgaasbkv Wkunc-2-Ukmnqgrao Beta Globulins PEP Interpretation Cholesterol LDL Cholesterol Direct 03/29/16 03/29/16 03/29/16 08:10 11:12 16:09 WBC RBC Hgb Hct MCV MCH MCHC Plt Count Lymph % (Auto) [place] % (Auto) Lymph # [place] # Baso # Seg Neutrophils % Seg Neuts % (Manual) Lymphocytes % (Manual) Seg Neutrophils # Seg Neutrophils # Man Lymphocytes # (Manual) Monocytes # (Manual) APTT Heparin Anti-Xa Level POC ABG pH POC ABG pCO2 POC ABG pO2 Sodium Potassium Chloride Carbon Dioxide BUN Creatinine Glucose POC Glucose 230 H 180 H 46 L Calcium Phosphorus Lactate Dehydrogenase Total Creatine Kinase NT-Pro-B Natriuret Pep Albumin Ufiok-3-Mhqbsujna Mxjdq-7-Xeffkaydo Beta Globulins PEP Interpretation Cholesterol LDL Cholesterol Direct 03/29/16 03/29/16 03/30/16 16:12 18:15 02:53 WBC RBC Hgb Hct MCV MCH MCHC Plt Count Lymph % (Auto) [place] % (Auto) Lymph # [place] # Baso # Seg Neutrophils % Seg Neuts % (Manual) Lymphocytes % (Manual) Seg Neutrophils # Seg Neutrophils # Man Lymphocytes # (Manual) Monocytes # (Manual) APTT Heparin Anti-Xa Level POC ABG pH POC ABG pCO2 POC ABG pO2 Sodium Potassium Chloride Carbon Dioxide BUN Creatinine Glucose POC Glucose 52 L 118 H 130 H Calcium Phosphorus Lactate Dehydrogenase Total Creatine Kinase NT-Pro-B Natriuret Pep Albumin Wpsqu-8-Hlfoxuvgw Yfwbj-1-Acohyytob Beta Globulins PEP Interpretation Cholesterol LDL Cholesterol Direct 03/30/16 03/30/16 03/30/16 04:00 04:00 05:29 WBC RBC Hgb Hct MCV 81 L MCH 26 L MCHC Plt Count 116 L Lymph % (Auto) 10.8 L [place] % (Auto) 13.1 H Lymph # 1.0 L [place] # 1.3 H Baso # Seg Neutrophils % 74.2 H Seg Neuts % (Manual) Lymphocytes % (Manual) Seg Neutrophils # Seg Neutrophils # Man Lymphocytes # (Manual) Monocytes # (Manual) APTT Heparin Anti-Xa Level POC ABG pH 7.522 H POC ABG pCO2 22.7 L POC ABG pO2 137 H Sodium 147 H D Potassium Chloride 115.5 H Carbon Dioxide 20 L BUN Creatinine Glucose 116 H POC Glucose Calcium 7.6 L Phosphorus 2.3 L D Lactate Dehydrogenase Total Creatine Kinase NT-Pro-B Natriuret Pep Albumin Hlzkp-3-Lmzhsqwpd Ntjux-9-Xfkgrpref Beta Globulins PEP Interpretation Cholesterol LDL Cholesterol Direct 03/30/16 03/30/16 03/30/16 05:47 08:05 08:59 WBC RBC Hgb Hct MCV MCH MCHC Plt Count Lymph % (Auto) [place] % (Auto) Lymph # [place] # Baso # Seg Neutrophils % Seg Neuts % (Manual) Lymphocytes % (Manual) Seg Neutrophils # Seg Neutrophils # Man Lymphocytes # (Manual) Monocytes # (Manual) APTT Heparin Anti-Xa Level POC ABG pH POC ABG pCO2 26.2 L POC ABG pO2 115 H Sodium Potassium Chloride Carbon Dioxide BUN Creatinine Glucose POC Glucose 138 H 171 H Calcium Phosphorus Lactate Dehydrogenase Total Creatine Kinase NT-Pro-B Natriuret Pep Albumin Lehvb-2-Fifotdpvj Cqguj-9-Oojaviqag Beta Globulins PEP Interpretation Cholesterol LDL Cholesterol Direct 03/30/16 03/30/16 03/30/16 12:11 12:11 16:39 WBC RBC Hgb Hct MCV MCH MCHC Plt Count Lymph % (Auto) [place] % (Auto) Lymph # [place] # Baso # Seg Neutrophils % Seg Neuts % (Manual) Lymphocytes % (Manual) Seg Neutrophils # Seg Neutrophils # Man Lymphocytes # (Manual) Monocytes # (Manual) APTT Heparin Anti-Xa Level POC ABG pH 7.476 H POC ABG pCO2 29.0 L POC ABG pO2 Sodium Potassium Chloride Carbon Dioxide BUN Creatinine Glucose POC Glucose 142 H 59 L Calcium Phosphorus Lactate Dehydrogenase Total Creatine Kinase NT-Pro-B Natriuret Pep Albumin Hepgx-6-Nyfbsjmym Ypfcc-9-Pniskupdk Beta Globulins PEP Interpretation Cholesterol LDL Cholesterol Direct 03/30/16 03/30/16 03/31/16 18:41 21:59 05:02 WBC RBC Hgb Hct MCV MCH MCHC Plt Count Lymph % (Auto) [place] % (Auto) Lymph # [place] # Baso # Seg Neutrophils % Seg Neuts % (Manual) Lymphocytes % (Manual) Seg Neutrophils # Seg Neutrophils # Man Lymphocytes # (Manual) Monocytes # (Manual) APTT Heparin Anti-Xa Level POC ABG pH 7.519 H POC ABG pCO2 21.8 L POC ABG pO2 142 H Sodium Potassium Chloride Carbon Dioxide BUN Creatinine Glucose POC Glucose 145 H 154 H Calcium Phosphorus Lactate Dehydrogenase Total Creatine Kinase NT-Pro-B Natriuret Pep Albumin Uodiq-2-Ioutncbtz Uykeb-6-Fehodxcdx Beta Globulins PEP Interpretation Cholesterol LDL Cholesterol Direct 03/31/16 03/31/16 03/31/16 05:15 05:15 05:15 WBC 13.4 H RBC 5.21 H Hgb Hct MCV 81 L MCH 26 L MCHC Plt Count Lymph % (Auto) 9.5 L [place] % (Auto) 14.0 H Lymph # [place] # 1.9 H Baso # Seg Neutrophils % 75.0 H Seg Neuts % (Manual) Lymphocytes % (Manual) Seg Neutrophils # 10.1 H Seg Neutrophils # Man Lymphocytes # (Manual) Monocytes # (Manual) APTT Heparin Anti-Xa Level POC ABG pH POC ABG pCO2 POC ABG pO2 Sodium Potassium Chloride 108.5 H Carbon Dioxide 19 L BUN Creatinine Glucose 188 H POC Glucose Calcium Phosphorus Lactate Dehydrogenase Total Creatine Kinase NT-Pro-B Natriuret Pep 1089 H Albumin Ocrfd-1-Ldcsnewuc Bkltz-2-Vwtdiqwzu Beta Globulins PEP Interpretation Cholesterol LDL Cholesterol Direct 03/31/16 03/31/16 03/31/16 07:23 11:12 15:20 WBC RBC Hgb Hct MCV MCH MCHC Plt Count Lymph % (Auto) [place] % (Auto) Lymph # [place] # Baso # Seg Neutrophils % Seg Neuts % (Manual) Lymphocytes % (Manual) Seg Neutrophils # Seg Neutrophils # Man Lymphocytes # (Manual) Monocytes # (Manual) APTT Heparin Anti-Xa Level POC ABG pH POC ABG pCO2 POC ABG pO2 Sodium Potassium Chloride Carbon Dioxide BUN Creatinine Glucose POC Glucose 233 H 228 H 208 H Calcium Phosphorus Lactate Dehydrogenase Total Creatine Kinase NT-Pro-B Natriuret Pep Albumin Tuyox-5-Dncaahtpr Bufhf-4-Zkcawvxsy Beta Globulins PEP Interpretation Cholesterol LDL Cholesterol Direct 03/31/16 04/01/16 04/01/16 21:27 04:41 05:35 WBC 12.1 H RBC Hgb Hct MCV 81 L MCH 26 L MCHC Plt Count Lymph % (Auto) 8.5 L [place] % (Auto) 14.0 H Lymph # 1.0 L [place] # 1.7 H Baso # Seg Neutrophils % 76.2 H Seg Neuts % (Manual) Lymphocytes % (Manual) Seg Neutrophils # 9.2 H Seg Neutrophils # Man Lymphocytes # (Manual) Monocytes # (Manual) APTT Heparin Anti-Xa Level POC ABG pH 7.455 H POC ABG pCO2 31.0 L POC ABG pO2 Sodium Potassium Chloride Carbon Dioxide BUN Creatinine Glucose POC Glucose 162 H Calcium Phosphorus Lactate Dehydrogenase Total Creatine Kinase NT-Pro-B Natriuret Pep Albumin Tuzgz-2-Lpuioxdsn Cmpfj-9-Utyyjmhia Beta Globulins PEP Interpretation Cholesterol LDL Cholesterol Direct 04/01/16 04/01/16 04/01/16 05:35 08:44 12:49 WBC RBC Hgb Hct MCV MCH MCHC Plt Count Lymph % (Auto) [place] % (Auto) Lymph # [place] # Baso # Seg Neutrophils % Seg Neuts % (Manual) Lymphocytes % (Manual) Seg Neutrophils # Seg Neutrophils # Man Lymphocytes # (Manual) Monocytes # (Manual) APTT Heparin Anti-Xa Level POC ABG pH POC ABG pCO2 POC ABG pO2 Sodium Potassium Chloride Carbon Dioxide BUN Creatinine Glucose 256 H POC Glucose 257 H 279 H Calcium 8.0 L Phosphorus Lactate Dehydrogenase Total Creatine Kinase NT-Pro-B Natriuret Pep 1205 H Albumin Rzowg-9-Lqjzzvqfy Buvar-3-Eerydtjme Beta Globulins PEP Interpretation Cholesterol LDL Cholesterol Direct 04/01/16 04/02/16 04/02/16 18:12 00:42 04:17 WBC RBC Hgb Hct MCV MCH MCHC Plt Count Lymph % (Auto) [place] % (Auto) Lymph # [place] # Baso # Seg Neutrophils % Seg Neuts % (Manual) Lymphocytes % (Manual) Seg Neutrophils # Seg Neutrophils # Man Lymphocytes # (Manual) Monocytes # (Manual) APTT Heparin Anti-Xa Level POC ABG pH 7.582 H POC ABG pCO2 26.8 L POC ABG pO2 Sodium Potassium Chloride Carbon Dioxide BUN Creatinine Glucose POC Glucose 168 H 282 H Calcium Phosphorus Lactate Dehydrogenase Total Creatine Kinase NT-Pro-B Natriuret Pep Albumin Sydjp-9-Znnmeellv Dnetg-6-Hryqzviwm Beta Globulins PEP Interpretation Cholesterol LDL Cholesterol Direct 04/02/16 04/02/16 04/02/16 05:00 05:00 06:27 WBC 12.4 H RBC Hgb Hct MCV 81 L MCH 26 L MCHC Plt Count Lymph % (Auto) 6.4 L [place] % (Auto) 13.3 H Lymph # 0.8 L [place] # 1.7 H Baso # Seg Neutrophils % 79.4 H Seg Neuts % (Manual) Lymphocytes % (Manual) Seg Neutrophils # 9.9 H Seg Neutrophils # Man Lymphocytes # (Manual) Monocytes # (Manual) APTT Heparin Anti-Xa Level POC ABG pH POC ABG pCO2 POC ABG pO2 Sodium 146 H Potassium Chloride Carbon Dioxide BUN Creatinine Glucose 334 H POC Glucose 317 H Calcium 8.0 L Phosphorus Lactate Dehydrogenase Total Creatine Kinase NT-Pro-B Natriuret Pep Albumin Atqfa-3-Gdafmozaj Zpfbh-5-Jmamgqyok Beta Globulins PEP Interpretation Cholesterol LDL Cholesterol Direct 04/02/16 04/02/16 04/02/16 11:51 13:10 17:24 WBC RBC Hgb Hct MCV MCH MCHC Plt Count Lymph % (Auto) [place] % (Auto) Lymph # [place] # Baso # Seg Neutrophils % Seg Neuts % (Manual) Lymphocytes % (Manual) Seg Neutrophils # Seg Neutrophils # Man Lymphocytes # (Manual) Monocytes # (Manual) APTT Heparin Anti-Xa Level POC ABG pH 7.518 H POC ABG pCO2 POC ABG pO2 Sodium Potassium Chloride Carbon Dioxide BUN Creatinine Glucose POC Glucose 278 H 195 H Calcium Phosphorus Lactate Dehydrogenase Total Creatine Kinase NT-Pro-B Natriuret Pep Albumin Kqgxl-3-Bnpkxbfjm Zpusy-6-Qcmuxhgyf Beta Globulins PEP Interpretation Cholesterol LDL Cholesterol Direct 04/03/16 04/03/16 04/03/16 00:18 04:10 04:10 WBC 14.3 H RBC Hgb Hct MCV 81 L MCH 26 L MCHC Plt Count Lymph % (Auto) 9.0 L [place] % (Auto) 10.7 H Lymph # [place] # 1.5 H Baso # 0.2 H Seg Neutrophils % 78.5 H Seg Neuts % (Manual) Lymphocytes % (Manual) Seg Neutrophils # 11.3 H Seg Neutrophils # Man Lymphocytes # (Manual) Monocytes # (Manual) APTT Heparin Anti-Xa Level POC ABG pH POC ABG pCO2 POC ABG pO2 Sodium 148 H Potassium Chloride 108.1 H Carbon Dioxide BUN 21 H Creatinine Glucose 227 H POC Glucose 144 H Calcium 8.2 L Phosphorus Lactate Dehydrogenase Total Creatine Kinase NT-Pro-B Natriuret Pep Albumin Apdbu-7-Ckjnkdlaq Aeisi-8-[place] Beta Globulins PEP Interpretation Cholesterol LDL Cholesterol Direct 04/03/16 04/03/16 04/04/16 11:14 17:10 04:00 WBC 14.5 H RBC Hgb Hct MCV 81 L MCH 26 L MCHC Plt Count Lymph % (Auto) 7.2 L [place] % (Auto) 7.6 H Lymph # 1.0 L [place] # 1.1 H Baso # Seg Neutrophils % 84.5 H Seg Neuts % (Manual) Lymphocytes % (Manual) Seg Neutrophils # 12.3 H Seg Neutrophils # Man Lymphocytes # (Manual) Monocytes # (Manual) APTT Heparin Anti-Xa Level POC ABG pH POC ABG pCO2 POC ABG pO2 Sodium Potassium Chloride Carbon Dioxide BUN Creatinine Glucose POC Glucose 267 H 212 H Calcium Phosphorus Lactate Dehydrogenase Total Creatine Kinase NT-Pro-B Natriuret Pep Albumin Pccml-0-Swpnqbpwk Rikaz-1-Ukqpupksr Beta Globulins PEP Interpretation Cholesterol LDL Cholesterol Direct 04/04/16 04/04/16 04/04/16 05:00 09:55 09:55 WBC RBC Hgb 11.5 L Hct MCV MCH MCHC Plt Count Lymph % (Auto) [place] % (Auto) Lymph # [place] # Baso # Seg Neutrophils % Seg Neuts % (Manual) Lymphocytes % (Manual) Seg Neutrophils # Seg Neutrophils # Man Lymphocytes # (Manual) Monocytes # (Manual) APTT 42.1 H Heparin Anti-Xa Level POC ABG pH POC ABG pCO2 POC ABG pO2 Sodium 146 H Potassium Chloride Carbon Dioxide BUN 22 H Creatinine Glucose 128 H POC Glucose Calcium Phosphorus Lactate Dehydrogenase Total Creatine Kinase NT-Pro-B Natriuret Pep Albumin Xdipw-0-Pawzthhxp Ashqt-2-Wwrxijbcp Beta Globulins PEP Interpretation Cholesterol LDL Cholesterol Direct 04/04/16 04/04/16 04/04/16 11:45 17:49 17:55 WBC RBC Hgb Hct MCV MCH MCHC Plt Count Lymph % (Auto) [place] % (Auto) Lymph # [place] # Baso # Seg Neutrophils % Seg Neuts % (Manual) Lymphocytes % (Manual) Seg Neutrophils # Seg Neutrophils # Man Lymphocytes # (Manual) Monocytes # (Manual) APTT Heparin Anti-Xa Level 1.19 H POC ABG pH POC ABG pCO2 POC ABG pO2 Sodium Potassium Chloride Carbon Dioxide BUN Creatinine Glucose POC Glucose 231 H 186 H Calcium Phosphorus Lactate Dehydrogenase Total Creatine Kinase NT-Pro-B Natriuret Pep Albumin Qztrf-8-Btipwczxf Fahpp-6-Mcxilfarx Beta Globulins PEP Interpretation Cholesterol LDL Cholesterol Direct 04/05/16 04/05/16 04/05/16 00:35 05:32 05:42 WBC RBC Hgb Hct MCV MCH MCHC Plt Count Lymph % (Auto) [place] % (Auto) Lymph # [place] # Baso # Seg Neutrophils % Seg Neuts % (Manual) Lymphocytes % (Manual) Seg Neutrophils # Seg Neutrophils # Man Lymphocytes # (Manual) Monocytes # (Manual) APTT Heparin Anti-Xa Level POC ABG pH 7.491 H POC ABG pCO2 POC ABG pO2 Sodium Potassium Chloride Carbon Dioxide BUN Creatinine Glucose POC Glucose 192 H 242 H Calcium Phosphorus Lactate Dehydrogenase Total Creatine Kinase NT-Pro-B Natriuret Pep Albumin Hxqna-7-Hmloveiki Mueor-1-Agvtiajhh Beta Globulins PEP Interpretation Cholesterol LDL Cholesterol Direct 04/05/16 04/05/16 04/05/16 06:20 06:20 12:19 WBC 13.9 H RBC Hgb 11.6 L Hct MCV 81 L MCH 26 L MCHC Plt Count Lymph % (Auto) 9.6 L [place] % (Auto) 8.7 H Lymph # [place] # 1.2 H Baso # Seg Neutrophils % 80.9 H Seg Neuts % (Manual) Lymphocytes % (Manual) Seg Neutrophils # 11.3 H Seg Neutrophils # Man Lymphocytes # (Manual) Monocytes # (Manual) APTT Heparin Anti-Xa Level POC ABG pH POC ABG pCO2 POC ABG pO2 Sodium 148 H Potassium Chloride Carbon Dioxide BUN 23 H Creatinine Glucose 242 H POC Glucose 187 H Calcium Phosphorus Lactate Dehydrogenase Total Creatine Kinase NT-Pro-B Natriuret Pep Albumin [place]-0-Rbpapqidl Tqaqz-3-Solsdafiw Beta Globulins PEP Interpretation Cholesterol LDL Cholesterol Direct 04/05/16 04/05/16 04/06/16 17:10 23:45 05:23 WBC 13.0 H RBC Hgb Hct MCV 82 L MCH 26 L MCHC 31 L Plt Count Lymph % (Auto) 6.7 L [place] % (Auto) 8.3 H Lymph # 0.9 L [place] # 1.1 H Baso # Seg Neutrophils % 84.6 H Seg Neuts % (Manual) Lymphocytes % (Manual) Seg Neutrophils # 11.0 H Seg Neutrophils # Man Lymphocytes # (Manual) Monocytes # (Manual) APTT Heparin Anti-Xa Level POC ABG pH POC ABG pCO2 POC ABG pO2 Sodium Potassium Chloride Carbon Dioxide BUN Creatinine Glucose POC Glucose 169 H 202 H Calcium Phosphorus Lactate Dehydrogenase Total Creatine Kinase NT-Pro-B Natriuret Pep Albumin Wcpzk-7-Ccrlpiskl Gfjim-6-Jepzbwtyd Beta Globulins PEP Interpretation Cholesterol LDL Cholesterol Direct 04/06/16 04/06/16 04/06/16 05:23 05:23 06:11 WBC RBC Hgb Hct MCV MCH MCHC Plt Count Lymph % (Auto) [place] % (Auto) Lymph # [place] # Baso # Seg Neutrophils % Seg Neuts % (Manual) Lymphocytes % (Manual) Seg Neutrophils # Seg Neutrophils # Man Lymphocytes # (Manual) Monocytes # (Manual) APTT Heparin Anti-Xa Level 0.21 L POC ABG pH POC ABG pCO2 POC ABG pO2 Sodium 153 H Potassium Chloride 111.3 H Carbon Dioxide BUN 22 H Creatinine Glucose 62 L POC Glucose 56 L Calcium Phosphorus Lactate Dehydrogenase Total Creatine Kinase NT-Pro-B Natriuret Pep Albumin Rcvef-7-Bhddxbwrx Tqsfb-5-Pqmrtjonn Beta Globulins PEP Interpretation Cholesterol LDL Cholesterol Direct 04/06/16 04/06/16 04/06/16 06:52 11:36 14:58 WBC RBC Hgb Hct MCV MCH MCHC Plt Count Lymph % (Auto) [place] % (Auto) Lymph # [place] # Baso # Seg Neutrophils % Seg Neuts % (Manual) Lymphocytes % (Manual) Seg Neutrophils # Seg Neutrophils # Man Lymphocytes # (Manual) Monocytes # (Manual) APTT Heparin Anti-Xa Level POC ABG pH POC ABG pCO2 POC ABG pO2 Sodium Potassium Chloride Carbon Dioxide BUN Creatinine Glucose POC Glucose 206 H 139 H 147 H Calcium Phosphorus Lactate Dehydrogenase Total Creatine Kinase NT-Pro-B Natriuret Pep Albumin Erqfn-8-Zgsdqjixs Wsljs-0-Dvvnwemfn Beta Globulins PEP Interpretation Cholesterol LDL Cholesterol Direct 04/06/16 04/06/16 04/06/16 16:03 21:18 23:53 WBC RBC Hgb Hct MCV MCH MCHC Plt Count Lymph % (Auto) [place] % (Auto) Lymph # [place] # Baso # Seg Neutrophils % Seg Neuts % (Manual) Lymphocytes % (Manual) Seg Neutrophils # Seg Neutrophils # Man Lymphocytes # (Manual) Monocytes # (Manual) APTT Heparin Anti-Xa Level POC ABG pH POC ABG pCO2 POC ABG pO2 Sodium Potassium Chloride Carbon Dioxide BUN Creatinine Glucose POC Glucose 154 H 293 H 301 H Calcium Phosphorus Lactate Dehydrogenase Total Creatine Kinase NT-Pro-B Natriuret Pep Albumin Auovk-9-Myhwqtsvl Dmffy-1-Tejwvcuxu Beta Globulins PEP Interpretation Cholesterol LDL Cholesterol Direct 04/07/16 04/07/16 04/07/16 02:30 05:11 05:11 WBC 12.5 H RBC Hgb 11.5 L Hct MCV 82 L MCH 26 L MCHC 31 L Plt Count Lymph % (Auto) [place] % (Auto) Lymph # [place] # Baso # Seg Neutrophils % Seg Neuts % (Manual) Lymphocytes % (Manual) Seg Neutrophils # Seg Neutrophils # Man Lymphocytes # (Manual) Monocytes # (Manual) APTT Heparin Anti-Xa Level 0.11 L POC ABG pH POC ABG pCO2 POC ABG pO2 Sodium 150 H Potassium Chloride 109.5 H Carbon Dioxide BUN 28 H Creatinine Glucose 264 H POC Glucose Calcium Phosphorus Lactate Dehydrogenase Total Creatine Kinase NT-Pro-B Natriuret Pep Albumin Fnabm-9-Bmnsvoslh Drwbj-3-Adztffijd Beta Globulins PEP Interpretation Cholesterol LDL Cholesterol Direct 04/07/16 06:46 WBC RBC Hgb Hct MCV MCH MCHC Plt Count Lymph % (Auto) [place] % (Auto) Lymph # [place] # Baso # Seg Neutrophils % Seg Neuts % (Manual) Lymphocytes % (Manual) Seg Neutrophils # Seg Neutrophils # Man Lymphocytes # (Manual) Monocytes # (Manual) APTT Heparin Anti-Xa Level POC ABG pH POC ABG pCO2 POC ABG pO2 Sodium Potassium Chloride Carbon Dioxide BUN Creatinine Glucose POC Glucose 259 H Calcium Phosphorus Lactate Dehydrogenase Total Creatine Kinase NT-Pro-B Natriuret Pep Albumin Ytyvc-5-Gelnwpvhc Clkvv-1-Xmgewnbcy Beta Globulins PEP Interpretation Cholesterol LDL Cholesterol Direct
--- NOTE | 2016-04-07 12:05 | TEE Report ---
Transesophageal Echocardiogram Indication: R/O Cardioemboic source BP: 121/68 Conclusions *The left ventricular chamber size is decreased. *Severe concentric left ventricular hypertrophy is observed. *The estimated ejection fraction is 50-55%. *There is no thrombus visualized in the left atrial appendage. *No atrial septal defected is demonstrated by color Doppler and agitated saline contrast. 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 *There is mild aortic regurgitation. *There is mild mitral regurgitation. 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 Dense echo contrast noted in the thoracic aorta consistent with severely reduced flow state. Findings Procedure Info: The study quality is good. LIZZIE Procedures: The posterior pharynx was anesthetized. The patient was placed in a left lateral recumbent position and a plastic bite block was inserted into the mouth. IV sedation was administered. A transesophageal echocardiography probe was inserted into the posterior pharynx and the esophagus was then intubated without difficulty. Multiple views were then obtained from the upper, mid and lower esophagus and the gastric fundus. The scope was rotated 180 degrees and the aorta was visualized. The scope withdrawn under continuous suction. The patient tolerated the procedure well without any apparent complications. The procedure and risk were explained to the patient who consented to the study. Left Ventricle: The left ventricular chamber size is decreased. Severe concentric left ventricular hypertrophy is observed. The estimated ejection fraction is 50-55%. Left Atrium: There is no thrombus visualized in the left atrial appendage. Right Ventricle: The right ventricular cavity size is normal. The right ventricular global systolic function is normal. Right Atrium: The right atrial cavity size is normal. No atrial septal defected is demonstrated by color Doppler and agitated saline contrast. Aortic Valve: There is mild aortic regurgitation. 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 Mitral Valve: The mitral valve leaflets are moderately thickened. There is mild mitral regurgitation. Tricuspid Valve: The tricuspid valve is not well visualized. Pulmonic Valve: The pulmonic valve appears normal in structure and function. Pericardium: There is no pericardial effusion. Aorta: There is evidence of grade 2 (extensive intimal thickening) atheromatous disease in the ascending aorta.Dense echo contrast noted in the thoracic aorta consistent with severely reduced flow state. There is evidence of grade 2 (extensive intimal thickening) atheromatous disease in the transverse aorta. 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 Measurements Chambers 2D Name Value Normal Range Ao root diameter (2D) 3.9 cm (2 - 3.7)
[2016-04-07] MEDS: LEVEMIR SUB-Q SCH (12:19)
[2016-04-07] MEDS: ASPIRIN PO SCH (12:21)
[2016-04-07] MEDS: NORMODYNE PO SCH ×3 (12:21→21:58)
[2016-04-07] MEDS: PROCARDIA XL PO SCH (12:22)
[2016-04-07] MEDS: ZESTRIL PO SCH ×2 (12:22→21:58)
[2016-04-07] MEDS: PEPCID PO SCH ×2 (12:22→21:58)
[2016-04-07] MEDS: CORDARONE PO SCH (12:22)
[2016-04-07] MEDS: KEPPRA PO SCH ×2 (12:23→21:58)
[2016-04-07] MEDS: APRESOLINE IV PRN (12:52)
--- NOTE | 2016-04-07 13:26 | Progress Note ---
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 Anticoagulation per cards recs. 2. Continue supplemental O2 3. Aspiration precautions. Subjective Date of service: 04/07/16 Principal diagnosis: CVA Interval history: No acute events. Had LIZZIE this am and cards is recommending anticoagulation. No actual thrombus seen but concern with low flow state. Remains on O2. Neurology left note this am as well. Objective Vital Signs - 12hr 04/07/16 04/07/16 04/07/16 05:28 07:51 08:53 Temperature 97.6 F 98.8 F Pulse Rate [ 84 From Monitor] Pulse Rate [ Intra-Procedure ] Pulse Rate [ 87 Left Radial] Pulse Rate [ Post-Procedure] Pulse Rate [Pre 87 -Procedure] Respiratory 20 20 Rate Respiratory Rate [Intra- Procedure] Respiratory Rate [Post- Procedure] Blood Pressure [Intra- Procedure] Blood Pressure 150/94 [Left Arm] Blood Pressure [Post-Procedure ] Blood Pressure 166/100 [Pre-Procedure] Blood Pressure 121/68 [Right Radial Artery] O2 Sat by Pulse 92 97 Oximetry O2 Sat by Pulse Oximetry [ Intra-Procedure ] O2 Sat by Pulse Oximetry [Post -Procedure] O2 Sat by Pulse 96 Oximetry [Pre- Procedure] 04/07/16 04/07/16 04/07/16 09:00 09:05 09:10 Temperature Pulse Rate [ From Monitor] Pulse Rate [ 89 90 87 Intra-Procedure ] Pulse Rate [ Left Radial] Pulse Rate [ Post-Procedure] Pulse Rate [Pre -Procedure] Respiratory Rate Respiratory 27 H 24 22 Rate [Intra- Procedure] Respiratory Rate [Post- Procedure] Blood Pressure 181/98 199/118 189/116 [Intra- Procedure] Blood Pressure [Left Arm] Blood Pressure [Post-Procedure ] Blood Pressure [Pre-Procedure] Blood Pressure [Right Radial Artery] O2 Sat by Pulse Oximetry O2 Sat by Pulse 97 97 97 Oximetry [ Intra-Procedure ] O2 Sat by Pulse Oximetry [Post -Procedure] O2 Sat by Pulse Oximetry [Pre- Procedure] 04/07/16 04/07/16 04/07/16 09:15 09:18 09:32 Temperature Pulse Rate [ From Monitor] Pulse Rate [ 86 Intra-Procedure ] Pulse Rate [ Left Radial] Pulse Rate [ 91 H 86 Post-Procedure] Pulse Rate [Pre -Procedure] Respiratory Rate Respiratory 30 H Rate [Intra- Procedure] Respiratory 24 21 Rate [Post- Procedure] Blood Pressure 164/105 [Intra- Procedure] Blood Pressure [Left Arm] Blood Pressure 178/105 139/93 [Post-Procedure ] Blood Pressure [Pre-Procedure] Blood Pressure [Right Radial Artery] O2 Sat by Pulse Oximetry O2 Sat by Pulse 100 Oximetry [ Intra-Procedure ] O2 Sat by Pulse 100 100 Oximetry [Post -Procedure] O2 Sat by Pulse Oximetry [Pre- Procedure] 04/07/16 04/07/16 09:47 11:51 Temperature 98.2 F Pulse Rate [ From Monitor] Pulse Rate [ Intra-Procedure ] Pulse Rate [ 98 H Left Radial] Pulse Rate [ 86 Post-Procedure] Pulse Rate [Pre -Procedure] Respiratory 20 Rate Respiratory Rate [Intra- Procedure] Respiratory 20 Rate [Post- Procedure] Blood Pressure [Intra- Procedure] Blood Pressure 183/110 [Left Arm] Blood Pressure 147/92 [Post-Procedure ] Blood Pressure [Pre-Procedure] Blood Pressure [Right Radial Artery] O2 Sat by Pulse Oximetry O2 Sat by Pulse Oximetry [ Intra-Procedure ] O2 Sat by Pulse 100 Oximetry [Post -Procedure] O2 Sat by Pulse Oximetry [Pre- Procedure] Constitutional: no acute distress Eyes: non-icteric Neck: supple Effort: normal Ascultation: Bilateral: clear, rhonchi (occasional) Percussion: Bilateral: not dull Cardiovascular: regular rate and rhythm, irregular rhythm Gastrointestinal: normoactive bowel sounds, soft, non-tender Extremities: no cyanosis, no edema Neurologic: other (RASS 0 ) CBC and BMP: 04/07/16 05:11 04/07/16 05:11 ABG, PT/INR, D-dimer: ABG POC ABG pH 7.491 (7.35-7.45) H 04/05/16 05:32 POC ABG pCO2 42.3 (35-45) 04/05/16 05:32 POC ABG pO2 90 (80-105) 04/05/16 05:32 POC ABG HCO3 32.3 04/05/16 05:32 POC ABG Total CO2 34 04/05/16 05:32 POC ABG O2 Sat 98 04/05/16 05:32 PT/INR, D-dimer PT 13.5 Sec. (12.2-14.9) 04/04/16 09:55 INR 1.04 (0.87-1.13) 04/04/16 09:55 Abnormal lab findings: Abnormal Labs 03/24/16 03/24/16 03/24/16 17:58 20:25 23:23 WBC RBC Hgb Hct MCV MCH MCHC Plt Count Lymph % (Auto) Evans % (Auto) Lymph # Evans # Baso # Seg Neutrophils % Seg Neuts % (Manual) Lymphocytes % (Manual) Seg Neutrophils # Seg Neutrophils # Man Lymphocytes # (Manual) Monocytes # (Manual) APTT Heparin Anti-Xa Level POC ABG pH POC ABG pCO2 POC ABG pO2 Sodium 169 H* Potassium 3.5 L Chloride 130.3 H Carbon Dioxide BUN 28 H Creatinine 1.8 H Glucose POC Glucose 112 H Calcium Phosphorus Lactate Dehydrogenase Total Creatine Kinase NT-Pro-B Natriuret Pep Albumin Qaywh-2-Ewfbhfbes Qnhch-6-Urzqjwfrl Beta Globulins PEP Interpretation Cholesterol 221 H LDL Cholesterol Direct 146 H 03/25/16 03/25/16 03/25/16 05:56 05:56 05:56 WBC 21.3 H RBC 6.32 H Hgb 16.7 H Hct 52.7 H MCV 83 L MCH 27 L MCHC Plt Count Lymph % (Auto) Evans % (Auto) Lymph # Evans # Baso # Seg Neutrophils % Seg Neuts % (Manual) 91.0 H Lymphocytes % (Manual) 4.0 L Seg Neutrophils # Seg Neutrophils # Man 19.4 H Lymphocytes # (Manual) 0.9 L Monocytes # (Manual) 0.9 H APTT Heparin Anti-Xa Level POC ABG pH POC ABG pCO2 POC ABG pO2 Sodium 172 H* Potassium 3.5 L Chloride 130.4 H Carbon Dioxide BUN 29 H Creatinine 1.8 H Glucose 187 H POC Glucose Calcium Phosphorus Lactate Dehydrogenase 460 H Total Creatine Kinase NT-Pro-B Natriuret Pep Albumin Ztcjt-8-Aqkoixcbd Qmgwx-7-Wuzqktmdl Beta Globulins PEP Interpretation Cholesterol LDL Cholesterol Direct 03/25/16 03/25/16 03/25/16 07:55 12:19 13:00 WBC RBC Hgb Hct MCV MCH MCHC Plt Count Lymph % (Auto) Evans % (Auto) Lymph # Evans # Baso # Seg Neutrophils % Seg Neuts % (Manual) Lymphocytes % (Manual) Seg Neutrophils # Seg Neutrophils # Man Lymphocytes # (Manual) Monocytes # (Manual) APTT Heparin Anti-Xa Level POC ABG pH POC ABG pCO2 POC ABG pO2 Sodium Potassium Chloride Carbon Dioxide BUN Creatinine Glucose POC Glucose 231 H 314 H Calcium Phosphorus Lactate Dehydrogenase Total Creatine Kinase NT-Pro-B Natriuret Pep Albumin 3.4 L Dypks-4-Dlnwrirhh 0.4 H Zfrjn-6-Gracnnsjg 1.1 H Beta Globulins 0.6 H PEP Interpretation see below H Cholesterol LDL Cholesterol Direct 03/25/16 03/25/16 03/26/16 16:41 22:45 08:32 WBC RBC Hgb Hct MCV MCH MCHC Plt Count Lymph % (Auto) Evans % (Auto) Lymph # Evans # Baso # Seg Neutrophils % Seg Neuts % (Manual) Lymphocytes % (Manual) Seg Neutrophils # Seg Neutrophils # Man Lymphocytes # (Manual) Monocytes # (Manual) APTT Heparin Anti-Xa Level POC ABG pH POC ABG pCO2 POC ABG pO2 Sodium Potassium Chloride Carbon Dioxide BUN Creatinine Glucose POC Glucose 444 H 326 H 360 H Calcium Phosphorus Lactate Dehydrogenase Total Creatine Kinase NT-Pro-B Natriuret Pep Albumin Ggcbt-7-Qziydrwbr Cqdvp-6-Skrfxggzd Beta Globulins PEP Interpretation Cholesterol LDL Cholesterol Direct 03/26/16 03/26/16 03/26/16 12:38 15:33 15:47 WBC RBC Hgb Hct MCV MCH MCHC Plt Count Lymph % (Auto) Evans % (Auto) Lymph # Evans # Baso # Seg Neutrophils % Seg Neuts % (Manual) Lymphocytes % (Manual) Seg Neutrophils # Seg Neutrophils # Man Lymphocytes # (Manual) Monocytes # (Manual) APTT Heparin Anti-Xa Level POC ABG pH 7.511 H POC ABG pCO2 26.5 L POC ABG pO2 70 L Sodium Potassium Chloride Carbon Dioxide BUN Creatinine Glucose POC Glucose 280 H 174 H Calcium Phosphorus Lactate Dehydrogenase Total Creatine Kinase NT-Pro-B Natriuret Pep Albumin Zgseg-2-Fwwrqohpg Vhsac-5-Imjowjkyq Beta Globulins PEP Interpretation Cholesterol LDL Cholesterol Direct 03/26/16 03/26/16 03/26/16 16:47 16:47 18:51 WBC 14.0 H RBC 5.17 H Hgb Hct MCV MCH 26 L MCHC 31 L Plt Count 139 L Lymph % (Auto) Evans % (Auto) Lymph # Evans # Baso # Seg Neutrophils % Seg Neuts % (Manual) Lymphocytes % (Manual) Seg Neutrophils # Seg Neutrophils # Man Lymphocytes # (Manual) Monocytes # (Manual) APTT Heparin Anti-Xa Level POC ABG pH POC ABG pCO2 33.9 L POC ABG pO2 150 H Sodium 164 H* Potassium 3.4 L Chloride 128.5 H Carbon Dioxide BUN 30 H Creatinine 2.2 H Glucose 121 H POC Glucose Calcium 8.1 L Phosphorus Lactate Dehydrogenase Total Creatine Kinase NT-Pro-B Natriuret Pep Albumin Qugqz-7-Emzfhmbib Lquav-4-Csgfjnlkp Beta Globulins PEP Interpretation Cholesterol LDL Cholesterol Direct 03/27/16 03/27/16 03/27/16 02:19 05:47 06:02 WBC RBC Hgb Hct MCV MCH MCHC Plt Count Lymph % (Auto) Evans % (Auto) Lymph # Evans # Baso # Seg Neutrophils % Seg Neuts % (Manual) Lymphocytes % (Manual) Seg Neutrophils # Seg Neutrophils # Man Lymphocytes # (Manual) Monocytes # (Manual) APTT Heparin Anti-Xa Level POC ABG pH POC ABG pCO2 27.3 L 30.3 L POC ABG pO2 50 L 112 H Sodium 158 H Potassium Chloride 126.7 H Carbon Dioxide 20 L BUN 25 H Creatinine 1.7 H Glucose POC Glucose Calcium 7.0 L Phosphorus Lactate Dehydrogenase Total Creatine Kinase NT-Pro-B Natriuret Pep Albumin Ucxpp-9-Aakxutaiq Npkrc-2-Bwncldxtz Beta Globulins PEP Interpretation Cholesterol LDL Cholesterol Direct 03/27/16 03/27/16 03/27/16 07:51 09:20 11:45 WBC 14.2 H RBC Hgb Hct MCV 83 L MCH 27 L MCHC Plt Count 113 L Lymph % (Auto) Evans % (Auto) Lymph # Evans # Baso # Seg Neutrophils % Seg Neuts % (Manual) Lymphocytes % (Manual) Seg Neutrophils # Seg Neutrophils # Man Lymphocytes # (Manual) Monocytes # (Manual) APTT Heparin Anti-Xa Level POC ABG pH POC ABG pCO2 POC ABG pO2 Sodium Potassium Chloride Carbon Dioxide BUN Creatinine Glucose POC Glucose 124 H 241 H Calcium Phosphorus Lactate Dehydrogenase Total Creatine Kinase NT-Pro-B Natriuret Pep Albumin Odefi-7-Nwiycjnbg Gkgrv-4-Mpbqwwpxd Beta Globulins PEP Interpretation Cholesterol LDL Cholesterol Direct 03/27/16 03/27/16 03/28/16 16:39 22:03 03:29 WBC RBC Hgb Hct MCV MCH MCHC Plt Count Lymph % (Auto) Evans % (Auto) Lymph # Evans # Baso # Seg Neutrophils % Seg Neuts % (Manual) Lymphocytes % (Manual) Seg Neutrophils # Seg Neutrophils # Man Lymphocytes # (Manual) Monocytes # (Manual) APTT Heparin Anti-Xa Level POC ABG pH POC ABG pCO2 POC ABG pO2 Sodium Potassium Chloride Carbon Dioxide BUN Creatinine Glucose POC Glucose 266 H 167 H 241 H Calcium Phosphorus Lactate Dehydrogenase Total Creatine Kinase NT-Pro-B Natriuret Pep Albumin Xnphn-1-Uyijqplkg Xeafs-0-Ojwieqrvo Beta Globulins PEP Interpretation Cholesterol LDL Cholesterol Direct 03/28/16 03/28/16 03/28/16 05:00 05:00 05:00 WBC RBC Hgb Hct MCV 83 L MCH 27 L MCHC Plt Count 106 L Lymph % (Auto) Evans % (Auto) 10.1 H Lymph # Evans # 1.0 H Baso # Seg Neutrophils % 75.1 H Seg Neuts % (Manual) Lymphocytes % (Manual) Seg Neutrophils # Seg Neutrophils # Man Lymphocytes # (Manual) Monocytes # (Manual) APTT Heparin Anti-Xa Level POC ABG pH POC ABG pCO2 POC ABG pO2 Sodium 147 H D Potassium 3.1 L D Chloride 112.3 H Carbon Dioxide 21 L BUN Creatinine Glucose 208 H POC Glucose Calcium 7.0 L Phosphorus 2.2 L Lactate Dehydrogenase Total Creatine Kinase NT-Pro-B Natriuret Pep Albumin Gkynm-9-Wamyvhnpw Ytyvk-8-Ucfurgmwo Beta Globulins PEP Interpretation Cholesterol LDL Cholesterol Direct 03/28/16 03/28/16 03/28/16 05:14 08:41 10:56 WBC RBC Hgb Hct MCV MCH MCHC Plt Count Lymph % (Auto) Evans % (Auto) Lymph # Evans # Baso # Seg Neutrophils % Seg Neuts % (Manual) Lymphocytes % (Manual) Seg Neutrophils # Seg Neutrophils # Man Lymphocytes # (Manual) Monocytes # (Manual) APTT Heparin Anti-Xa Level POC ABG pH 7.457 H POC ABG pCO2 29.7 L 27.7 L POC ABG pO2 Sodium Potassium Chloride Carbon Dioxide BUN Creatinine Glucose POC Glucose 228 H Calcium Phosphorus Lactate Dehydrogenase Total Creatine Kinase NT-Pro-B Natriuret Pep Albumin Xnhzw-9-Fepytheje Xnddm-5-Rbdabuxrj Beta Globulins PEP Interpretation Cholesterol LDL Cholesterol Direct 03/28/16 03/28/16 03/28/16 11:37 13:29 16:22 WBC RBC Hgb Hct MCV MCH MCHC Plt Count Lymph % (Auto) Evans % (Auto) Lymph # Evans # Baso # Seg Neutrophils % Seg Neuts % (Manual) Lymphocytes % (Manual) Seg Neutrophils # Seg Neutrophils # Man Lymphocytes # (Manual) Monocytes # (Manual) APTT Heparin Anti-Xa Level POC ABG pH POC ABG pCO2 POC ABG pO2 Sodium Potassium Chloride Carbon Dioxide BUN Creatinine Glucose POC Glucose 226 H 200 H Calcium Phosphorus Lactate Dehydrogenase Total Creatine Kinase 356 H NT-Pro-B Natriuret Pep Albumin Bpctj-7-Mcefsqlpr Kdwat-1-Hvnudmcqy Beta Globulins PEP Interpretation Cholesterol LDL Cholesterol Direct 03/28/16 03/29/16 03/29/16 21:48 04:50 04:50 WBC RBC Hgb 11.5 L Hct 35.3 L MCV 81 L MCH 26 L MCHC Plt Count 97 L Lymph % (Auto) Evans % (Auto) 11.7 H Lymph # Evans # 1.1 H Baso # Seg Neutrophils % Seg Neuts % (Manual) Lymphocytes % (Manual) Seg Neutrophils # Seg Neutrophils # Man Lymphocytes # (Manual) Monocytes # (Manual) APTT Heparin Anti-Xa Level POC ABG pH POC ABG pCO2 POC ABG pO2 Sodium 136 L D Potassium 3.3 L Chloride Carbon Dioxide 20 L BUN Creatinine Glucose 386 H POC Glucose 188 H Calcium 6.8 L Phosphorus 1.6 L D Lactate Dehydrogenase Total Creatine Kinase NT-Pro-B Natriuret Pep Albumin Fxtap-5-Bncpgscev Uykxf-9-Mueieasej Beta Globulins PEP Interpretation Cholesterol LDL Cholesterol Direct 03/29/16 03/29/16 03/29/16 08:10 11:12 16:09 WBC RBC Hgb Hct MCV MCH MCHC Plt Count Lymph % (Auto) Evans % (Auto) Lymph # Evans # Baso # Seg Neutrophils % Seg Neuts % (Manual) Lymphocytes % (Manual) Seg Neutrophils # Seg Neutrophils # Man Lymphocytes # (Manual) Monocytes # (Manual) APTT Heparin Anti-Xa Level POC ABG pH POC ABG pCO2 POC ABG pO2 Sodium Potassium Chloride Carbon Dioxide BUN Creatinine Glucose POC Glucose 230 H 180 H 46 L Calcium Phosphorus Lactate Dehydrogenase Total Creatine Kinase NT-Pro-B Natriuret Pep Albumin Wzotg-7-Xasvfwovw Ulnvw-9-Teoesltck Beta Globulins PEP Interpretation Cholesterol LDL Cholesterol Direct 03/29/16 03/29/16 03/30/16 16:12 18:15 02:53 WBC RBC Hgb Hct MCV MCH MCHC Plt Count Lymph % (Auto) Evans % (Auto) Lymph # Evans # Baso # Seg Neutrophils % Seg Neuts % (Manual) Lymphocytes % (Manual) Seg Neutrophils # Seg Neutrophils # Man Lymphocytes # (Manual) Monocytes # (Manual) APTT Heparin Anti-Xa Level POC ABG pH POC ABG pCO2 POC ABG pO2 Sodium Potassium Chloride Carbon Dioxide BUN Creatinine Glucose POC Glucose 52 L 118 H 130 H Calcium Phosphorus Lactate Dehydrogenase Total Creatine Kinase NT-Pro-B Natriuret Pep Albumin Vcjhl-2-Reykzuynh Stqru-2-Jskztirdn Beta Globulins PEP Interpretation Cholesterol LDL Cholesterol Direct 03/30/16 03/30/16 03/30/16 04:00 04:00 05:29 WBC RBC Hgb Hct MCV 81 L MCH 26 L MCHC Plt Count 116 L Lymph % (Auto) 10.8 L Evans % (Auto) 13.1 H Lymph # 1.0 L Evans # 1.3 H Baso # Seg Neutrophils % 74.2 H Seg Neuts % (Manual) Lymphocytes % (Manual) Seg Neutrophils # Seg Neutrophils # Man Lymphocytes # (Manual) Monocytes # (Manual) APTT Heparin Anti-Xa Level POC ABG pH 7.522 H POC ABG pCO2 22.7 L POC ABG pO2 137 H Sodium 147 H D Potassium Chloride 115.5 H Carbon Dioxide 20 L BUN Creatinine Glucose 116 H POC Glucose Calcium 7.6 L Phosphorus 2.3 L D Lactate Dehydrogenase Total Creatine Kinase NT-Pro-B Natriuret Pep Albumin Brxvo-3-Pbprzktki Taygg-1-Bmlwnzlau Beta Globulins PEP Interpretation Cholesterol LDL Cholesterol Direct 03/30/16 03/30/16 03/30/16 05:47 08:05 08:59 WBC RBC Hgb Hct MCV MCH MCHC Plt Count Lymph % (Auto) Evans % (Auto) Lymph # Evans # Baso # Seg Neutrophils % Seg Neuts % (Manual) Lymphocytes % (Manual) Seg Neutrophils # Seg Neutrophils # Man Lymphocytes # (Manual) Monocytes # (Manual) APTT Heparin Anti-Xa Level POC ABG pH POC ABG pCO2 26.2 L POC ABG pO2 115 H Sodium Potassium Chloride Carbon Dioxide BUN Creatinine Glucose POC Glucose 138 H 171 H Calcium Phosphorus Lactate Dehydrogenase Total Creatine Kinase NT-Pro-B Natriuret Pep Albumin Tgbal-2-Bsyovuauz Euqzr-3-Ycufatlmj Beta Globulins PEP Interpretation Cholesterol LDL Cholesterol Direct 03/30/16 03/30/16 03/30/16 12:11 12:11 16:39 WBC RBC Hgb Hct MCV MCH MCHC Plt Count Lymph % (Auto) Evans % (Auto) Lymph # Evans # Baso # Seg Neutrophils % Seg Neuts % (Manual) Lymphocytes % (Manual) Seg Neutrophils # Seg Neutrophils # Man Lymphocytes # (Manual) Monocytes # (Manual) APTT Heparin Anti-Xa Level POC ABG pH 7.476 H POC ABG pCO2 29.0 L POC ABG pO2 Sodium Potassium Chloride Carbon Dioxide BUN Creatinine Glucose POC Glucose 142 H 59 L Calcium Phosphorus Lactate Dehydrogenase Total Creatine Kinase NT-Pro-B Natriuret Pep Albumin Pdiva-3-Qnabdkfwy Dacgk-1-Iqfmajmgc Beta Globulins PEP Interpretation Cholesterol LDL Cholesterol Direct 03/30/16 03/30/16 03/31/16 18:41 21:59 05:02 WBC RBC Hgb Hct MCV MCH MCHC Plt Count Lymph % (Auto) Evans % (Auto) Lymph # Evans # Baso # Seg Neutrophils % Seg Neuts % (Manual) Lymphocytes % (Manual) Seg Neutrophils # Seg Neutrophils # Man Lymphocytes # (Manual) Monocytes # (Manual) APTT Heparin Anti-Xa Level POC ABG pH 7.519 H POC ABG pCO2 21.8 L POC ABG pO2 142 H Sodium Potassium Chloride Carbon Dioxide BUN Creatinine Glucose POC Glucose 145 H 154 H Calcium Phosphorus Lactate Dehydrogenase Total Creatine Kinase NT-Pro-B Natriuret Pep Albumin Usjeb-5-Ducymmjkl Iitec-4-Vrrondxww Beta Globulins PEP Interpretation Cholesterol LDL Cholesterol Direct 03/31/16 03/31/16 03/31/16 05:15 05:15 05:15 WBC 13.4 H RBC 5.21 H Hgb Hct MCV 81 L MCH 26 L MCHC Plt Count Lymph % (Auto) 9.5 L Evans % (Auto) 14.0 H Lymph # Evans # 1.9 H Baso # Seg Neutrophils % 75.0 H Seg Neuts % (Manual) Lymphocytes % (Manual) Seg Neutrophils # 10.1 H Seg Neutrophils # Man Lymphocytes # (Manual) Monocytes # (Manual) APTT Heparin Anti-Xa Level POC ABG pH POC ABG pCO2 POC ABG pO2 Sodium Potassium Chloride 108.5 H Carbon Dioxide 19 L BUN Creatinine Glucose 188 H POC Glucose Calcium Phosphorus Lactate Dehydrogenase Total Creatine Kinase NT-Pro-B Natriuret Pep 1089 H Albumin Qkevj-5-Qpdajgwsx Nmazt-6-Mluruaqfg Beta Globulins PEP Interpretation Cholesterol LDL Cholesterol Direct 03/31/16 03/31/16 03/31/16 07:23 11:12 15:20 WBC RBC Hgb Hct MCV MCH MCHC Plt Count Lymph % (Auto) Evans % (Auto) Lymph # Evans # Baso # Seg Neutrophils % Seg Neuts % (Manual) Lymphocytes % (Manual) Seg Neutrophils # Seg Neutrophils # Man Lymphocytes # (Manual) Monocytes # (Manual) APTT Heparin Anti-Xa Level POC ABG pH POC ABG pCO2 POC ABG pO2 Sodium Potassium Chloride Carbon Dioxide BUN Creatinine Glucose POC Glucose 233 H 228 H 208 H Calcium Phosphorus Lactate Dehydrogenase Total Creatine Kinase NT-Pro-B Natriuret Pep Albumin Bydix-9-Wzwpznxum Hkyrn-3-Jhjpubusk Beta Globulins PEP Interpretation Cholesterol LDL Cholesterol Direct 03/31/16 04/01/16 04/01/16 21:27 04:41 05:35 WBC 12.1 H RBC Hgb Hct MCV 81 L MCH 26 L MCHC Plt Count Lymph % (Auto) 8.5 L Evans % (Auto) 14.0 H Lymph # 1.0 L Evans # 1.7 H Baso # Seg Neutrophils % 76.2 H Seg Neuts % (Manual) Lymphocytes % (Manual) Seg Neutrophils # 9.2 H Seg Neutrophils # Man Lymphocytes # (Manual) Monocytes # (Manual) APTT Heparin Anti-Xa Level POC ABG pH 7.455 H POC ABG pCO2 31.0 L POC ABG pO2 Sodium Potassium Chloride Carbon Dioxide BUN Creatinine Glucose POC Glucose 162 H Calcium Phosphorus Lactate Dehydrogenase Total Creatine Kinase NT-Pro-B Natriuret Pep Albumin [place]-1-Lzrbnixcj Njghy-7-Znbkhtxih Beta Globulins PEP Interpretation Cholesterol LDL Cholesterol Direct 04/01/16 04/01/16 04/01/16 05:35 08:44 12:49 WBC RBC Hgb Hct MCV MCH MCHC Plt Count Lymph % (Auto) Evans % (Auto) Lymph # Evans # Baso # Seg Neutrophils % Seg Neuts % (Manual) Lymphocytes % (Manual) Seg Neutrophils # Seg Neutrophils # Man Lymphocytes # (Manual) Monocytes # (Manual) APTT Heparin Anti-Xa Level POC ABG pH POC ABG pCO2 POC ABG pO2 Sodium Potassium Chloride Carbon Dioxide BUN Creatinine Glucose 256 H POC Glucose 257 H 279 H Calcium 8.0 L Phosphorus Lactate Dehydrogenase Total Creatine Kinase NT-Pro-B Natriuret Pep 1205 H Albumin Agwcr-1-Qlyhbufql Pgtga-4-Vshjxhuff Beta Globulins PEP Interpretation Cholesterol LDL Cholesterol Direct 04/01/16 04/02/16 04/02/16 18:12 00:42 04:17 WBC RBC Hgb Hct MCV MCH MCHC Plt Count Lymph % (Auto) Evans % (Auto) Lymph # Evans # Baso # Seg Neutrophils % Seg Neuts % (Manual) Lymphocytes % (Manual) Seg Neutrophils # Seg Neutrophils # Man Lymphocytes # (Manual) Monocytes # (Manual) APTT Heparin Anti-Xa Level POC ABG pH 7.582 H POC ABG pCO2 26.8 L POC ABG pO2 Sodium Potassium Chloride Carbon Dioxide BUN Creatinine Glucose POC Glucose 168 H 282 H Calcium Phosphorus Lactate Dehydrogenase Total Creatine Kinase NT-Pro-B Natriuret Pep Albumin Wrrkk-7-Bahwgqmoe Lrxld-7-Cemciujwg Beta Globulins PEP Interpretation Cholesterol LDL Cholesterol Direct 04/02/16 04/02/16 04/02/16 05:00 05:00 06:27 WBC 12.4 H RBC Hgb Hct MCV 81 L MCH 26 L MCHC Plt Count Lymph % (Auto) 6.4 L Evans % (Auto) 13.3 H Lymph # 0.8 L Evans # 1.7 H Baso # Seg Neutrophils % 79.4 H Seg Neuts % (Manual) Lymphocytes % (Manual) Seg Neutrophils # 9.9 H Seg Neutrophils # Man Lymphocytes # (Manual) Monocytes # (Manual) APTT Heparin Anti-Xa Level POC ABG pH POC ABG pCO2 POC ABG pO2 Sodium 146 H Potassium Chloride Carbon Dioxide BUN Creatinine Glucose 334 H POC Glucose 317 H Calcium 8.0 L Phosphorus Lactate Dehydrogenase Total Creatine Kinase NT-Pro-B Natriuret Pep Albumin Keruv-2-Ojozouqrf Oglqw-8-Stcblhfba Beta Globulins PEP Interpretation Cholesterol LDL Cholesterol Direct 04/02/16 04/02/16 04/02/16 11:51 13:10 17:24 WBC RBC Hgb Hct MCV MCH MCHC Plt Count Lymph % (Auto) Evans % (Auto) Lymph # Evans # Baso # Seg Neutrophils % Seg Neuts % (Manual) Lymphocytes % (Manual) Seg Neutrophils # Seg Neutrophils # Man Lymphocytes # (Manual) Monocytes # (Manual) APTT Heparin Anti-Xa Level POC ABG pH 7.518 H POC ABG pCO2 POC ABG pO2 Sodium Potassium Chloride Carbon Dioxide BUN Creatinine Glucose POC Glucose 278 H 195 H Calcium Phosphorus Lactate Dehydrogenase Total Creatine Kinase NT-Pro-B Natriuret Pep Albumin Gixcv-6-Vifftiiqw Eobhv-2-Jlkjdiqqx Beta Globulins PEP Interpretation Cholesterol LDL Cholesterol Direct 04/03/16 04/03/16 04/03/16 00:18 04:10 04:10 WBC 14.3 H RBC Hgb Hct MCV 81 L MCH 26 L MCHC Plt Count Lymph % (Auto) 9.0 L Evans % (Auto) 10.7 H Lymph # Evans # 1.5 H Baso # 0.2 H Seg Neutrophils % 78.5 H Seg Neuts % (Manual) Lymphocytes % (Manual) Seg Neutrophils # 11.3 H Seg Neutrophils # Man Lymphocytes # (Manual) Monocytes # (Manual) APTT Heparin Anti-Xa Level POC ABG pH POC ABG pCO2 POC ABG pO2 Sodium 148 H Potassium Chloride 108.1 H Carbon Dioxide BUN 21 H Creatinine Glucose 227 H POC Glucose 144 H Calcium 8.2 L Phosphorus Lactate Dehydrogenase Total Creatine Kinase NT-Pro-B Natriuret Pep Albumin Ooxis-0-Zkhtdvedx Wgzzp-1-Fgnksqixo Beta Globulins PEP Interpretation Cholesterol LDL Cholesterol Direct 04/03/16 04/03/16 04/04/16 11:14 17:10 04:00 WBC 14.5 H RBC Hgb Hct MCV 81 L MCH 26 L MCHC Plt Count Lymph % (Auto) 7.2 L Evans % (Auto) 7.6 H Lymph # 1.0 L Evans # 1.1 H Baso # Seg Neutrophils % 84.5 H Seg Neuts % (Manual) Lymphocytes % (Manual) Seg Neutrophils # 12.3 H Seg Neutrophils # Man Lymphocytes # (Manual) Monocytes # (Manual) APTT Heparin Anti-Xa Level POC ABG pH POC ABG pCO2 POC ABG pO2 Sodium Potassium Chloride Carbon Dioxide BUN Creatinine Glucose POC Glucose 267 H 212 H Calcium Phosphorus Lactate Dehydrogenase Total Creatine Kinase NT-Pro-B Natriuret Pep Albumin Qgiqi-3-Dcffzpanp Jwdun-7-Blyhdmvlo Beta Globulins PEP Interpretation Cholesterol LDL Cholesterol Direct 04/04/16 04/04/16 04/04/16 05:00 09:55 09:55 WBC RBC Hgb 11.5 L Hct MCV MCH MCHC Plt Count Lymph % (Auto) Evans % (Auto) Lymph # Evans # Baso # Seg Neutrophils % Seg Neuts % (Manual) Lymphocytes % (Manual) Seg Neutrophils # Seg Neutrophils # Man Lymphocytes # (Manual) Monocytes # (Manual) APTT 42.1 H Heparin Anti-Xa Level POC ABG pH POC ABG pCO2 POC ABG pO2 Sodium 146 H Potassium Chloride Carbon Dioxide BUN 22 H Creatinine Glucose 128 H POC Glucose Calcium Phosphorus Lactate Dehydrogenase Total Creatine Kinase NT-Pro-B Natriuret Pep Albumin Txkos-4-Xzkhffsjq Haday-1-Sosrdhtzj Beta Globulins PEP Interpretation Cholesterol LDL Cholesterol Direct 04/04/16 04/04/16 04/04/16 11:45 17:49 17:55 WBC RBC Hgb Hct MCV MCH MCHC Plt Count Lymph % (Auto) Evans % (Auto) Lymph # Evans # Baso # Seg Neutrophils % Seg Neuts % (Manual) Lymphocytes % (Manual) Seg Neutrophils # Seg Neutrophils # Man Lymphocytes # (Manual) Monocytes # (Manual) APTT Heparin Anti-Xa Level 1.19 H POC ABG pH POC ABG pCO2 POC ABG pO2 Sodium Potassium Chloride Carbon Dioxide BUN Creatinine Glucose POC Glucose 231 H 186 H Calcium Phosphorus Lactate Dehydrogenase Total Creatine Kinase NT-Pro-B Natriuret Pep Albumin Ntwas-8-Zjxennunh Pqclc-7-Vcgsvfcln Beta Globulins PEP Interpretation Cholesterol LDL Cholesterol Direct 04/05/16 04/05/16 04/05/16 00:35 05:32 05:42 WBC RBC Hgb Hct MCV MCH MCHC Plt Count Lymph % (Auto) Evans % (Auto) Lymph # Evans # Baso # Seg Neutrophils % Seg Neuts % (Manual) Lymphocytes % (Manual) Seg Neutrophils # Seg Neutrophils # Man Lymphocytes # (Manual) Monocytes # (Manual) APTT Heparin Anti-Xa Level POC ABG pH 7.491 H POC ABG pCO2 POC ABG pO2 Sodium Potassium Chloride Carbon Dioxide BUN Creatinine Glucose POC Glucose 192 H 242 H Calcium Phosphorus Lactate Dehydrogenase Total Creatine Kinase NT-Pro-B Natriuret Pep Albumin Ajhmr-5-Tgtsqnytu Dpsui-7-Tjmoclhki Beta Globulins PEP Interpretation Cholesterol LDL Cholesterol Direct 04/05/16 04/05/16 04/05/16 06:20 06:20 12:19 WBC 13.9 H RBC Hgb 11.6 L Hct MCV 81 L MCH 26 L MCHC Plt Count Lymph % (Auto) 9.6 L Evans % (Auto) 8.7 H Lymph # Evans # 1.2 H Baso # Seg Neutrophils % 80.9 H Seg Neuts % (Manual) Lymphocytes % (Manual) Seg Neutrophils # 11.3 H Seg Neutrophils # Man Lymphocytes # (Manual) Monocytes # (Manual) APTT Heparin Anti-Xa Level POC ABG pH POC ABG pCO2 POC ABG pO2 Sodium 148 H Potassium Chloride Carbon Dioxide BUN 23 H Creatinine Glucose 242 H POC Glucose 187 H Calcium Phosphorus Lactate Dehydrogenase Total Creatine Kinase NT-Pro-B Natriuret Pep Albumin Dtdcp-0-Ddhuinqvr Frrik-2-Uaierqseb Beta Globulins PEP Interpretation Cholesterol LDL Cholesterol Direct 04/05/16 04/05/16 04/06/16 17:10 23:45 05:23 WBC 13.0 H RBC Hgb Hct MCV 82 L MCH 26 L MCHC 31 L Plt Count Lymph % (Auto) 6.7 L Evans % (Auto) 8.3 H Lymph # 0.9 L Evans # 1.1 H Baso # Seg Neutrophils % 84.6 H Seg Neuts % (Manual) Lymphocytes % (Manual) Seg Neutrophils # 11.0 H Seg Neutrophils # Man Lymphocytes # (Manual) Monocytes # (Manual) APTT Heparin Anti-Xa Level POC ABG pH POC ABG pCO2 POC ABG pO2 Sodium Potassium Chloride Carbon Dioxide BUN Creatinine Glucose POC Glucose 169 H 202 H Calcium Phosphorus Lactate Dehydrogenase Total Creatine Kinase NT-Pro-B Natriuret Pep Albumin Kqmri-8-Eyntayakg Jesgo-1-Nfbunnfpm Beta Globulins PEP Interpretation Cholesterol LDL Cholesterol Direct 04/06/16 04/06/16 04/06/16 05:23 05:23 06:11 WBC RBC Hgb Hct MCV MCH MCHC Plt Count Lymph % (Auto) Evans % (Auto) Lymph # Evans # Baso # Seg Neutrophils % Seg Neuts % (Manual) Lymphocytes % (Manual) Seg Neutrophils # Seg Neutrophils # Man Lymphocytes # (Manual) Monocytes # (Manual) APTT Heparin Anti-Xa Level 0.21 L POC ABG pH POC ABG pCO2 POC ABG pO2 Sodium 153 H Potassium Chloride 111.3 H Carbon Dioxide BUN 22 H Creatinine Glucose 62 L POC Glucose 56 L Calcium Phosphorus Lactate Dehydrogenase Total Creatine Kinase NT-Pro-B Natriuret Pep Albumin Whcmp-5-Bqbznhazs Ijgmz-4-Sagwxvuby Beta Globulins PEP Interpretation Cholesterol LDL Cholesterol Direct 12/10/1504/06/16 04/06/16 06:52 11:36 14:58 WBC RBC Hgb Hct MCV MCH MCHC Plt Count Lymph % (Auto) Evans % (Auto) Lymph # Evans # Baso # Seg Neutrophils % Seg Neuts % (Manual) Lymphocytes % (Manual) Seg Neutrophils # Seg Neutrophils # Man Lymphocytes # (Manual) Monocytes # (Manual) APTT Heparin Anti-Xa Level POC ABG pH POC ABG pCO2 POC ABG pO2 Sodium Potassium Chloride Carbon Dioxide BUN Creatinine Glucose POC Glucose 206 H 139 H 147 H Calcium Phosphorus Lactate Dehydrogenase Total Creatine Kinase NT-Pro-B Natriuret Pep Albumin Tppli-8-Fghxiumyd Rfaqt-7-Ybuoatypc Beta Globulins PEP Interpretation Cholesterol LDL Cholesterol Direct 04/06/16 04/06/16 04/06/16 16:03 21:18 23:53 WBC RBC Hgb Hct MCV MCH MCHC Plt Count Lymph % (Auto) Evans % (Auto) Lymph # Evans # Baso # Seg Neutrophils % Seg Neuts % (Manual) Lymphocytes % (Manual) Seg Neutrophils # Seg Neutrophils # Man Lymphocytes # (Manual) Monocytes # (Manual) APTT Heparin Anti-Xa Level POC ABG pH POC ABG pCO2 POC ABG pO2 Sodium Potassium Chloride Carbon Dioxide BUN Creatinine Glucose POC Glucose 154 H 293 H 301 H Calcium Phosphorus Lactate Dehydrogenase Total Creatine Kinase NT-Pro-B Natriuret Pep Albumin Abvvs-8-Uneitmwbb Ljcuu-2-Jijsqearo Beta Globulins PEP Interpretation Cholesterol LDL Cholesterol Direct 04/07/16 04/07/16 04/07/16 02:30 05:11 05:11 WBC 12.5 H RBC Hgb 11.5 L Hct MCV 82 L MCH 26 L MCHC 31 L Plt Count Lymph % (Auto) Evans % (Auto) Lymph # Evans # Baso # Seg Neutrophils % Seg Neuts % (Manual) Lymphocytes % (Manual) Seg Neutrophils # Seg Neutrophils # Man Lymphocytes # (Manual) Monocytes # (Manual) APTT Heparin Anti-Xa Level 0.11 L POC ABG pH POC ABG pCO2 POC ABG pO2 Sodium 150 H Potassium Chloride 109.5 H Carbon Dioxide BUN 28 H Creatinine Glucose 264 H POC Glucose Calcium Phosphorus Lactate Dehydrogenase Total Creatine Kinase NT-Pro-B Natriuret Pep Albumin Heuge-6-Bpbeucuad Qamzk-2-Rjnnwhtyh Beta Globulins PEP Interpretation Cholesterol LDL Cholesterol Direct 04/07/16 06:46 WBC RBC Hgb Hct MCV MCH MCHC Plt Count Lymph % (Auto) Evans % (Auto) Lymph # Evans # Baso # Seg Neutrophils % Seg Neuts % (Manual) Lymphocytes % (Manual) Seg Neutrophils # Seg Neutrophils # Man Lymphocytes # (Manual) Monocytes # (Manual) APTT Heparin Anti-Xa Level POC ABG pH POC ABG pCO2 POC ABG pO2 Sodium Potassium Chloride Carbon Dioxide BUN Creatinine Glucose POC Glucose 259 H Calcium Phosphorus Lactate Dehydrogenase Total Creatine Kinase NT-Pro-B Natriuret Pep Albumin Gdqvv-1-Yyxzkcaki Yfrax-2-Rpgnfygkf Beta Globulins PEP Interpretation Cholesterol LDL Cholesterol Direct
[2016-04-07 13:33] LABS: INR 1.2 (0.87-1.13)
--- NOTE | 2016-04-07 14:00 | Progress Note ---
Assessment and Plan Assessment and plan: Acute respiratory failure. Patient extubated, transferred from ICU to telemetry. Pulmonology following Acute ischemic stroke. CT scan revealed acute ischemic infarct in the right cerebellum. MRI reveals subacute infarct in the right cerebellar hemisphere with associated edema and mass effect as previously described. Patient also with multiple areas of acute infarct in the left occipital and frontal lobes that are most likely embolic. LIZZIE done today. No thrombus but decreased flow. Cardiology recommends anticoagulation with Coumadin. Hypernatremia. Na 150 today. Continue to monitor BMP. Will recheck daily. Continue free water. Encephalopathy. EEG normal. Accelerated hypertension. Blood pressure improving . CAD-stable, continue current beta em, statin Diabetes mellitus 2. Cont Levemir . History of aortic dissection status post repair. History of prosthetic aortic valve replacement. Echo with normal function on 2015. UTI with Group B strep. Completed ceftriaxone Seizure Disorder. Continue Keppra DVT prophylaxis-On heparin driop, coumadin. GI prophylaxis-Pepcid History Interval history: patient with stroke, encephalopathy, seizure disorder still lethargic Hospitalist Physical - Physical exam Narrative exam: Gen: Not in acute distress, ill looking HEENT: Normocephalic, atraumatic Neck: supple no JVD Lungs clear to auscultation bilaterally, no crackles or wheeze Heart S1-S2 regular, no murmurs, rubs or gallops Abdomen:soft, NT, ND,,PEG tube, normal bowel sounds Extremities :no edema, no clubbing or cyanosis Neuro: lethargic - Constitutional Vitals: Temp Pulse Resp BP Pulse Ox 98.2 F 98 H 20 183/110 100 04/07/16 11:51 04/07/16 11:51 04/07/16 11:51 04/07/16 11:51 04/07/16 09:47 General appearance: Present: no acute distress Results - Labs CBC & Chem 7: 04/08/16 06:30 04/07/16 05:11 Labs: Laboratory Last Values WBC 12.5 K/mm3 (4.5-11.0) H 04/07/16 05:11 RBC 4.44 M/mm3 (3.65-5.03) 04/07/16 05:11 Hgb 11.5 gm/dl (11.8-15.2) L 04/07/16 05:11 Hct 36.6 % (35.5-45.6) 04/07/16 05:11 MCV 82 fl (84-94) L 04/07/16 05:11 MCH 26 pg (28-32) L 04/07/16 05:11 MCHC 31 % (32-34) L 04/07/16 05:11 RDW 14.7 % (13.2-15.2) 04/07/16 05:11 Plt Count 364 K/mm3 (140-440) 04/07/16 05:11 Lymph % (Auto) 6.7 % (13.4-35.0) L 04/06/16 05:23 Cooper % (Auto) 8.3 % (0.0-7.3) H 04/06/16 05:23 Eos % (Auto) 0.1 % (0.0-4.3) 04/06/16 05:23 Baso % (Auto) 0.3 % (0.0-1.8) 04/06/16 05:23 Lymph # 0.9 K/mm3 (1.2-5.4) L 04/06/16 05:23 Cooper # 1.1 K/mm3 (0.0-0.8) H 04/06/16 05:23 Eos # 0.0 K/mm3 (0.0-0.4) 04/06/16 05:23 Baso # 0.0 K/mm3 (0.0-0.1) 04/06/16 05:23 Add Manual Diff Complete 03/25/16 05:56 Total Counted 100 03/25/16 05:56 Seg Neutrophils % 84.6 % (40.0-70.0) H 04/06/16 05:23 Seg Neuts % (Manual) 91.0 % (40.0-70.0) H 03/25/16 05:56 Band Neutrophils % 1.0 % 03/25/16 05:56 Lymphocytes % (Manual) 4.0 % (13.4-35.0) L 03/25/16 05:56 Reactive Lymphs % (Man) 0 % 03/25/16 05:56 Monocytes % (Manual) 4.0 % (0.0-7.3) 03/25/16 05:56 Eosinophils % (Manual) 0 % (0.0-4.3) 03/25/16 05:56 Basophils % (Manual) 0 % (0.0-1.8) 03/25/16 05:56 Metamyelocytes % 0 % 03/25/16 05:56 Myelocytes % 0 % 03/25/16 05:56 Promyelocytes % 0 % 03/25/16 05:56 Blast Cells % 0 % 03/25/16 05:56 Nucleated RBC % Not Reportable 03/25/16 05:56 Seg Neutrophils # 11.0 K/mm3 (1.8-7.7) H 04/06/16 05:23 Seg Neutrophils # Man 19.4 K/mm3 (1.8-7.7) H 03/25/16 05:56 Band Neutrophils # 0.2 K/mm3 03/25/16 05:56 Lymphocytes # (Manual) 0.9 K/mm3 (1.2-5.4) L 03/25/16 05:56 Abs React Lymphs (Man) 0.0 K/mm3 03/25/16 05:56 Monocytes # (Manual) 0.9 K/mm3 (0.0-0.8) H 03/25/16 05:56 Eosinophils # (Manual) 0.0 K/mm3 (0.0-0.4) 03/25/16 05:56 Basophils # (Manual) 0.0 K/mm3 (0.0-0.1) 03/25/16 05:56 Metamyelocytes # 0.0 K/mm3 03/25/16 05:56 Myelocytes # 0.0 K/mm3 03/25/16 05:56 Promyelocytes # 0.0 K/mm3 03/25/16 05:56 Blast Cells # 0.0 K/mm3 03/25/16 05:56 WBC Morphology Not Reportable 03/25/16 05:56 Hypersegmented Neuts Not Reportable 03/25/16 05:56 Hyposegmented Neuts Not Reportable 03/25/16 05:56 Hypogranular Neuts Not Reportable 03/25/16 05:56 Smudge Cells Not Reportable 03/25/16 05:56 Toxic Granulation Not Reportable 03/25/16 05:56 Toxic Vacuolation Not Reportable 03/25/16 05:56 Dohle Bodies Not Reportable 03/25/16 05:56 Pelger-Huet Anomaly Not Reportable 03/25/16 05:56 Corina Rods Not Reportable 03/25/16 05:56 Platelet Estimate Appears normal 03/25/16 05:56 Clumped Platelets Not Reportable 03/25/16 05:56 Plt Clumps, EDTA Not Reportable 03/25/16 05:56 Large Platelets Not Reportable 03/25/16 05:56 Giant Platelets Not Reportable 03/25/16 05:56 Platelet Satelliting Not Reportable 03/25/16 05:56 Plt Morphology Comment Not Reportable 03/25/16 05:56 RBC Morphology Normal 03/25/16 05:56 Dimorphic RBCs Not Reportable 03/25/16 05:56 Polychromasia Not Reportable 03/25/16 05:56 Hypochromasia Not Reportable 03/25/16 05:56 Poikilocytosis Not Reportable 03/25/16 05:56 Anisocytosis Not Reportable 03/25/16 05:56 Microcytosis Not Reportable 03/25/16 05:56 Macrocytosis Not Reportable 03/25/16 05:56 Spherocytes Not Reportable 03/25/16 05:56 Pappenheimer Bodies Not Reportable 03/25/16 05:56 Sickle Cells Not Reportable 03/25/16 05:56 Target Cells Not Reportable 03/25/16 05:56 Tear Drop Cells Not Reportable 03/25/16 05:56 Ovalocytes Not Reportable 03/25/16 05:56 Helmet Cells Not Reportable 03/25/16 05:56 Mcgrath-[place] Bodies Not Reportable 03/25/16 05:56 Gamaliel Rings Not Reportable 03/25/16 05:56 Tuan Cells Not Reportable 03/25/16 05:56 Bite Cells Not Reportable 03/25/16 05:56 Crenated Cell Not Reportable 03/25/16 05:56 Elliptocytes Not Reportable 03/25/16 05:56 Acanthocytes (Spur) Not Reportable 03/25/16 05:56 Rouleaux Not Reportable 03/25/16 05:56 Hemoglobin C Crystals Not Reportable 03/25/16 05:56 Schistocytes Not Reportable 03/25/16 05:56 Malaria parasites Not Reportable 03/25/16 05:56 Gideon Bodies Not Reportable 03/25/16 05:56 Hem Pathologist Commnt No 03/25/16 05:56 PT 15.1 Sec. (12.2-14.9) H 04/07/16 10:18 INR 1.20 (0.87-1.13) H 04/07/16 10:18 APTT 42.1 Sec. (24.2-36.6) H 04/04/16 09:55 Heparin Anti-Xa Level 0.35 U.I./ml (0.3-0.7) 04/07/16 10:18 POC ABG pH 7.491 (7.35-7.45) H 04/05/16 05:32 POC ABG pCO2 42.3 (35-45) 04/05/16 05:32 POC ABG pO2 90 (80-105) 04/05/16 05:32 POC ABG HCO3 32.3 04/05/16 05:32 POC ABG Total CO2 34 04/05/16 05:32 POC ABG O2 Sat 98 04/05/16 05:32 POC ABG Base Excess 9 04/05/16 05:32 VBG pH 7.418 (7.320-7.420) 03/24/16 14:00 FiO2 28 % 04/05/16 05:32 Sodium 150 mmol/L (137-145) H 04/07/16 05:11 Potassium 4.0 mmol/L (3.6-5.0) 04/07/16 05:11 Chloride 109.5 mmol/L (98-107) H 04/07/16 05:11 Carbon Dioxide 30 mmol/L (22-30) 04/07/16 05:11 Anion Gap 15 mmol/L 04/07/16 05:11 BUN 28 mg/dL (9-20) H 04/07/16 05:11 Creatinine 1.4 mg/dL (0.8-1.5) 04/07/16 05:11 Estimated GFR > 60 ml/min 04/07/16 05:11 BUN/Creatinine Ratio 20.00 % 04/07/16 05:11 Glucose 264 mg/dL (75-100) H 04/07/16 05:11 POC Glucose 259 (70-105) H 04/07/16 06:46 Hemoglobin A1c 9.6 % (4-6) H 03/24/16 14:00 Lactic Acid 2.8 mmol/L (0.7-2.1) H 03/24/16 15:26 Calcium 8.7 mg/dL (8.4-10.2) 04/07/16 05:11 Phosphorus 2.3 mg/dL (2.5-4.5) L D 03/30/16 04:00 Magnesium 1.9 mg/dL (1.7-2.3) 03/30/16 04:00 Total Bilirubin 0.3 mg/dL (0.1-1.2) 03/24/16 14:00 AST 24 units/L (5-40) 03/24/16 14:00 ALT 38 units/L (7-56) 03/24/16 14:00 Alkaline Phosphatase 77 units/L (35-129) 03/24/16 14:00 Lactate Dehydrogenase 460 units/L (91-180) H 03/25/16 05:56 Total Creatine Kinase 356 units/L (55-170) H 03/28/16 13:29 Troponin T < 0.010 ng/mL (0.00-0.029) 03/28/16 13:29 NT-Pro-B Natriuret Pep 897.9 pg/mL (0-900) 04/03/16 04:10 Serum Total Protein 7.1 g/dL (6.1-8.1) 03/25/16 13:00 Total Protein 7.4 g/dL (6.3-8.2) 03/24/16 14:00 Albumin 3.4 g/dL (3.8-4.8) L 03/25/16 13:00 Albumin/Globulin Ratio 0.9 % 03/24/16 14:00 Wdfgh-1-Pmhwgatau 0.4 g/dL (0.2-0.3) H 03/25/16 13:00 Nldtg-6-Cittlcxxl 1.1 g/dL (0.5-0.9) H 03/25/16 13:00 Beta Globulins 0.6 g/dL (0.2-0.5) H 03/25/16 13:00 Gvbf-2-Upohuobntxrlx 2.46 mg/L (<=2.51) 03/25/16 13:00 Gamma Globulins 1.3 g/dL (0.8-1.7) 03/25/16 13:00 Abnorm Protein Band 1 see below (()) 03/25/16 13:00 PEP Interpretation see below (()) H 03/25/16 13:00 Triglycerides 88 mg/dL (2-149) 03/24/16 17:58 Cholesterol 221 mg/dL (50-199) H 03/24/16 17:58 LDL Cholesterol Direct 146 mg/dL (50-130) H 03/24/16 17:58 HDL Cholesterol 58 mg/dL (40-59) 03/24/16 17:58 Cholesterol/HDL Ratio 3.81 % 03/24/16 17:58 Urine Color Yellow (Yellow) 03/24/16 14:27 Urine Turbidity Clear (Clear) 03/24/16 14:27 Urine pH 5.0 (5.0-7.0) 03/24/16 14:27 Ur Specific [place] 1.017 (1.003-1.030) 03/24/16 14:27 Urine Protein <15 mg/dl mg/dL (Negative) 03/24/16 14:27 Urine Glucose (UA) >=500 mg/dL (Negative) 03/24/16 14:27 Urine Ketones Neg mg/dL (Negative) 03/24/16 14:27 Urine Blood Sm (Negative) 03/24/16 14:27 Urine Nitrite Neg (Negative) 03/24/16 14:27 Urine Bilirubin Neg (Negative) 03/24/16 14:27 Urine Urobilinogen < 2.0 mg/dL (<2.0) 03/24/16 14:27 Ur Leukocyte Esterase Neg (Negative) 03/24/16 14:27 Urine WBC (Auto) 2.0 /HPF (0.0-6.0) 03/24/16 14:27 Urine RBC (Auto) < 1.0 /HPF (0.0-6.0) 03/24/16 14:27 U Epithel Cells (Auto) 4.0 /HPF (0-13.0) 03/24/16 14:27 Hyaline Casts 1 /LPF 03/24/16 14:27 Urine Mucus Few /HPF 03/24/16 14:27 Ketones 1.0 mg/dL (0.2-2.8) 03/24/16 14:00
[2016-04-07] MEDS ORDERED: COUMADIN PO SCH (17:00)
[2016-04-07] MEDS: COUMADIN PO SCH (17:19)
[2016-04-08] MEDS: NOVOLOG SUB-Q SCH ×4 (01:33→17:37)
[2016-04-08] MEDS: HEPARIN/ 0.45% NACL-25,000 UNIT/500 ML 500 ML IV SCH (06:37)
[2016-04-08 07:19] LABS: Hematocrit 37.3 % (35.5-45.6); Hemoglobin 11.8 gm/dl (11.8-15.2)
[2016-04-08 08:07] LABS: Calcium 8.4 mg/dL (8.4-10.2); Chloride 114.7 mmol/L (98-107); Potassium 3.7 mmol/L (3.6-5.0)
[2016-04-08] MEDS: LEVEMIR SUB-Q SCH (08:42)
[2016-04-08] MEDS: NORMODYNE PO SCH ×3 (08:45→21:24)
[2016-04-08] MEDS: KEPPRA PO SCH ×2 (10:10→21:24)
[2016-04-08] MEDS: CORDARONE PO SCH (10:10)
[2016-04-08] MEDS: PEPCID PO SCH ×2 (10:10→21:24)
[2016-04-08] MEDS: PROCARDIA XL PO SCH (10:10)
[2016-04-08] MEDS: ZESTRIL PO SCH ×2 (10:11→21:24)
[2016-04-08] MEDS: ASPIRIN PO SCH (10:11)
[2016-04-08 10:54] LABS: INR 1.24 (0.87-1.13)
--- NOTE | 2016-04-08 10:56 | Progress Note ---
Addendum entered and electronically signed by MASOOD HAWLEY MD 04/08/16 14:44 : Patient is comfortable, on oral anticoagulation therapy for multi-infarct CVA. Original Note: Assessment and Plan Acute respiratory failure now extubated no evidence of PE by V\Q scan normal ventricular and atriua size, EF 65% on echo this admission. Acute CVA LIZZIE - very dense echo contrast noted in the thoracic aorta consistent with low flow state, severe concentric LVH, normal functioning bioprosthetic aortic valve. Initiated on coumadin therapy Abnormal ECG no significant CAD by [facility] 08/2015 Hx of aortic dissection s/p repair Hx of bioprosthetic aortic valve replacement Hypertension Plan: Initiated on anticoagulation with coumadin given the density of echo contrast in the thoracic aorta which is consistent with low flow state. Target INR 2-3. Subjective Date of service: 04/08/16 Principal diagnosis: CVA Interval history: No cardiac events overnight. Objective Vital Signs Temp Pulse Pulse Pulse Resp BP BP 04/08/16 10:11 164/107 04/08/16 08:57 04/08/16 08:45 94 H 164/107 04/08/16 07:36 99.1 F 94 H 22 164/107 04/08/16 04:45 98.7 F 102 H 20 126/83 04/08/16 00:30 99.4 F 82 18 123/80 04/07/16 22:10 04/07/16 21:58 84 04/07/16 21:29 97.8 F 88 18 129/78 04/07/16 20:35 20 04/07/16 20:00 88 04/07/16 11:51 98.2 F 98 H 20 183/110 Pulse Ox 04/08/16 10:11 04/08/16 08:57 100 04/08/16 08:45 04/08/16 07:36 96 04/08/16 04:45 99 04/08/16 00:30 100 04/07/16 22:10 97 04/07/16 21:58 04/07/16 21:29 97 04/07/16 20:35 04/07/16 20:00 04/07/16 11:51 - Physical Examination General: No Apparent Distress Cardiac: Positive: Reg Rate and Rhythm Lungs: Positive: Decreased Breath Sounds - Labs and Meds Coagulation 04/07/16 04/08/16 Range/Units 10:18 10:28 PT 15.1 H 15.5 H (12.2-14.9) Sec. INR 1.20 H 1.24 H (0.87-1.13) CBC 04/08/16 Range/Units 06:30 Hgb 11.8 (11.8-15.2) gm/dl Hct 37.3 (35.5-45.6) % Plt Count 350 (140-440) K/mm3 Comprehensive Metabolic Panel 04/08/16 Range/Units 06:49 Sodium 156 H (137-145) mmol/L Potassium 3.7 (3.6-5.0) mmol/L Chloride 114.7 H (98-107) mmol/L Carbon Dioxide 29 (22-30) mmol/L BUN 33 H (9-20) mg/dL Creatinine 1.5 (0.8-1.5) mg/dL Glucose 169 H (75-100) mg/dL Calcium 8.4 (8.4-10.2) mg/dL - Imaging and Cardiology EKG: image reviewed
--- NOTE | 2016-04-08 11:01 | XRay Report ---
AP ABDOMEN: HISTORY: Dobbhoff tube placement. FINDINGS: A Dobbhoff tube terminates in the fundus of the stomach in the left upper quadrant. The bowel gas pattern is unremarkable. No evidence for obstruction. There is moderate stool throughout the colon. Right femoral catheter terminates at the level of S1-2. IMPRESSION: The feeding tube terminates in the fundus of the stomach.
[2016-04-08] MEDS: COUMADIN PO SCH (17:36)
--- NOTE | 2016-04-08 18:43 | Progress Note ---
Assessment and Plan Assessment and plan: Acute respiratory failure. Patient extubated, transferred from ICU , now in telemetry. Pulmonology following Acute ischemic stroke. CT scan revealed acute ischemic infarct in the right cerebellum. MRI reveals subacute infarct in the right cerebellar hemisphere with associated edema and mass effect as previously described. Patient also with multiple areas of acute infarct in the left occipital and frontal lobes that are most likely embolic. LIZZIE done today. No thrombus but decreased flow. Cardiology recommends anticoagulation with Coumadin. Hypernatremia. Na 156 today, worse. Start d5W. Continue to monitor BMP. Will recheck daily. Continue free water. Encephalopathy. EEG normal. Accelerated hypertension. Blood pressure improving . CAD-stable, continue current beta em, statin Diabetes mellitus type 2. Cont Levemir . History of aortic dissection status post repair. History of prosthetic aortic valve replacement. Echo with normal function on 2015. UTI with Group B strep. Completed ceftriaxone Seizure Disorder. Continue Keppra DVT prophylaxis-On heparin drip, coumadin. GI prophylaxis-Pepcid History Interval history: patient with stroke, encephalopathy, seizure disorder still lethargic, LIZZIE done yesterday Hospitalist Physical - Physical exam Narrative exam: Gen: Not in acute distress, ill looking HEENT: Normocephalic, atraumatic Neck: supple no JVD Lungs clear to auscultation bilaterally, no crackles or wheeze Heart S1-S2 regular, no murmurs, rubs or gallops Abdomen:soft, Nontender, non distended,PEG tube, normal bowel sounds Extremities :no edema, no clubbing or cyanosis Neuro: lethargic - Constitutional Vitals: Temp Pulse Resp BP Pulse Ox 97.2 F L 85 20 129/81 100 04/08/16 15:41 04/08/16 15:44 04/08/16 15:41 04/08/16 15:44 04/08/16 15:41 General appearance: Present: no acute distress Results - Labs CBC & Chem 7: 04/08/16 06:30 04/08/16 06:49 Labs: Laboratory Last Values WBC 12.5 K/mm3 (4.5-11.0) H 04/07/16 05:11 RBC 4.44 M/mm3 (3.65-5.03) 04/07/16 05:11 Hgb 11.8 gm/dl (11.8-15.2) 04/08/16 06:30 Hct 37.3 % (35.5-45.6) 04/08/16 06:30 MCV 82 fl (84-94) L 04/07/16 05:11 MCH 26 pg (28-32) L 04/07/16 05:11 MCHC 31 % (32-34) L 04/07/16 05:11 RDW 14.7 % (13.2-15.2) 04/07/16 05:11 Plt Count 350 K/mm3 (140-440) 04/08/16 06:30 Lymph % (Auto) 6.7 % (13.4-35.0) L 04/06/16 05:23 [place] % (Auto) 8.3 % (0.0-7.3) H 04/06/16 05:23 Eos % (Auto) 0.1 % (0.0-4.3) 04/06/16 05:23 Baso % (Auto) 0.3 % (0.0-1.8) 04/06/16 05:23 Lymph # 0.9 K/mm3 (1.2-5.4) L 04/06/16 05:23 [place] # 1.1 K/mm3 (0.0-0.8) H 04/06/16 05:23 Eos # 0.0 K/mm3 (0.0-0.4) 04/06/16 05:23 Baso # 0.0 K/mm3 (0.0-0.1) 04/06/16 05:23 Add Manual Diff Complete 03/25/16 05:56 Total Counted 100 03/25/16 05:56 Seg Neutrophils % 84.6 % (40.0-70.0) H 04/06/16 05:23 Seg Neuts % (Manual) 91.0 % (40.0-70.0) H 03/25/16 05:56 Band Neutrophils % 1.0 % 03/25/16 05:56 Lymphocytes % (Manual) 4.0 % (13.4-35.0) L 03/25/16 05:56 Reactive Lymphs % (Man) 0 % 03/25/16 05:56 Monocytes % (Manual) 4.0 % (0.0-7.3) 03/25/16 05:56 Eosinophils % (Manual) 0 % (0.0-4.3) 03/25/16 05:56 Basophils % (Manual) 0 % (0.0-1.8) 03/25/16 05:56 Metamyelocytes % 0 % 03/25/16 05:56 Myelocytes % 0 % 03/25/16 05:56 Promyelocytes % 0 % 03/25/16 05:56 Blast Cells % 0 % 03/25/16 05:56 Nucleated RBC % Not Reportable 03/25/16 05:56 Seg Neutrophils # 11.0 K/mm3 (1.8-7.7) H 04/06/16 05:23 Seg Neutrophils # Man 19.4 K/mm3 (1.8-7.7) H 03/25/16 05:56 Band Neutrophils # 0.2 K/mm3 03/25/16 05:56 Lymphocytes # (Manual) 0.9 K/mm3 (1.2-5.4) L 03/25/16 05:56 Abs React Lymphs (Man) 0.0 K/mm3 03/25/16 05:56 Monocytes # (Manual) 0.9 K/mm3 (0.0-0.8) H 03/25/16 05:56 Eosinophils # (Manual) 0.0 K/mm3 (0.0-0.4) 03/25/16 05:56 Basophils # (Manual) 0.0 K/mm3 (0.0-0.1) 03/25/16 05:56 Metamyelocytes # 0.0 K/mm3 03/25/16 05:56 Myelocytes # 0.0 K/mm3 03/25/16 05:56 Promyelocytes # 0.0 K/mm3 03/25/16 05:56 Blast Cells # 0.0 K/mm3 03/25/16 05:56 WBC Morphology Not Reportable 03/25/16 05:56 Hypersegmented Neuts Not Reportable 03/25/16 05:56 Hyposegmented Neuts Not Reportable 03/25/16 05:56 Hypogranular Neuts Not Reportable 03/25/16 05:56 Smudge Cells Not Reportable 03/25/16 05:56 Toxic Granulation Not Reportable 03/25/16 05:56 Toxic Vacuolation Not Reportable 03/25/16 05:56 Dohle Bodies Not Reportable 03/25/16 05:56 Pelger-Huet Anomaly Not Reportable 03/25/16 05:56 Corina Rods Not Reportable 03/25/16 05:56 Platelet Estimate Appears normal 03/25/16 05:56 Clumped Platelets Not Reportable 03/25/16 05:56 Plt Clumps, EDTA Not Reportable 03/25/16 05:56 Large Platelets Not Reportable 03/25/16 05:56 Giant Platelets Not Reportable 03/25/16 05:56 Platelet Satelliting Not Reportable 03/25/16 05:56 Plt Morphology Comment Not Reportable 03/25/16 05:56 RBC Morphology Normal 03/25/16 05:56 Dimorphic RBCs Not Reportable 03/25/16 05:56 Polychromasia Not Reportable 03/25/16 05:56 Hypochromasia Not Reportable 03/25/16 05:56 Poikilocytosis Not Reportable 03/25/16 05:56 Anisocytosis Not Reportable 03/25/16 05:56 Microcytosis Not Reportable 03/25/16 05:56 Macrocytosis Not Reportable 03/25/16 05:56 Spherocytes Not Reportable 03/25/16 05:56 Pappenheimer Bodies Not Reportable 03/25/16 05:56 Sickle Cells Not Reportable 03/25/16 05:56 Target Cells Not Reportable 03/25/16 05:56 Tear Drop Cells Not Reportable 03/25/16 05:56 Ovalocytes Not Reportable 03/25/16 05:56 Helmet Cells Not Reportable 03/25/16 05:56 [employer]gr[employer] Bodies Not Reportable 03/25/16 05:56 [place] Rings Not Reportable 03/25/16 05:56 [place] Cells Not Reportable 03/25/16 05:56 Bite Cells Not Reportable 03/25/16 05:56 Crenated Cell Not Reportable 03/25/16 05:56 Elliptocytes Not Reportable 03/25/16 05:56 Acanthocytes (Spur) Not Reportable 03/25/16 05:56 Rouleaux Not Reportable 03/25/16 05:56 Hemoglobin C Crystals Not Reportable 03/25/16 05:56 Schistocytes Not Reportable 03/25/16 05:56 Malaria parasites Not Reportable 03/25/16 05:56 Gideon Bodies Not Reportable 03/25/16 05:56 Hem Pathologist Commnt No 03/25/16 05:56 PT 15.5 Sec. (12.2-14.9) H 04/08/16 10:28 INR 1.24 (0.87-1.13) H 04/08/16 10:28 APTT 42.1 Sec. (24.2-36.6) H 04/04/16 09:55 Heparin Anti-Xa Level 0.24 U.I./ml (0.3-0.7) L 04/08/16 10:28 POC ABG pH 7.491 (7.35-7.45) H 04/05/16 05:32 POC ABG pCO2 42.3 (35-45) 04/05/16 05:32 POC ABG pO2 90 (80-105) 04/05/16 05:32 POC ABG HCO3 32.3 04/05/16 05:32 POC ABG Total CO2 34 04/05/16 05:32 POC ABG O2 Sat 98 04/05/16 05:32 POC ABG Base Excess 9 04/05/16 05:32 VBG pH 7.418 (7.320-7.420) 03/24/16 14:00 FiO2 28 % 04/05/16 05:32 Sodium 156 mmol/L (137-145) H 04/08/16 06:49 Potassium 3.7 mmol/L (3.6-5.0) 04/08/16 06:49 Chloride 114.7 mmol/L (98-107) H 04/08/16 06:49 Carbon Dioxide 29 mmol/L (22-30) 04/08/16 06:49 Anion Gap 16 mmol/L 04/08/16 06:49 BUN 33 mg/dL (9-20) H 04/08/16 06:49 Creatinine 1.5 mg/dL (0.8-1.5) 04/08/16 06:49 Estimated GFR 57 ml/min 04/08/16 06:49 BUN/Creatinine Ratio 22.00 % 04/08/16 06:49 Glucose 169 mg/dL (75-100) H 04/08/16 06:49 POC Glucose 146 (70-105) H 04/08/16 01:25 Hemoglobin A1c 9.6 % (4-6) H 03/24/16 14:00 Lactic Acid 2.8 mmol/L (0.7-2.1) H 03/24/16 15:26 Calcium 8.4 mg/dL (8.4-10.2) 04/08/16 06:49 Phosphorus 2.3 mg/dL (2.5-4.5) L D 03/30/16 04:00 Magnesium 1.9 mg/dL (1.7-2.3) 03/30/16 04:00 Total Bilirubin 0.3 mg/dL (0.1-1.2) 03/24/16 14:00 AST 24 units/L (5-40) 03/24/16 14:00 ALT 38 units/L (7-56) 03/24/16 14:00 Alkaline Phosphatase 77 units/L (35-129) 03/24/16 14:00 Lactate Dehydrogenase 460 units/L (91-180) H 03/25/16 05:56 Total Creatine Kinase 356 units/L (55-170) H 03/28/16 13:29 Troponin T < 0.010 ng/mL (0.00-0.029) 03/28/16 13:29 NT-Pro-B Natriuret Pep 897.9 pg/mL (0-900) 04/03/16 04:10 Serum Total Protein 7.1 g/dL (6.1-8.1) 03/25/16 13:00 Total Protein 7.4 g/dL (6.3-8.2) 03/24/16 14:00 Albumin See scanned report 03/31/16 12:20 Albumin/Globulin Ratio 0.9 % 03/24/16 14:00 Tsgbw-2-Gyowvvrnp See scanned report 03/31/16 12:20 Eevhc-6-Yipswifpt See scanned report 03/31/16 12:20 Beta Globulins See scanned report 03/31/16 12:20 Dwsn-6-Zkpnirwexecyn 2.46 mg/L (<=2.51) 03/25/16 13:00 Gamma Globulins See scanned report 03/31/16 12:20 Abnorm Protein Band 1 see below (()) 03/25/16 13:00 PEP Interpretation See scanned report 03/31/16 12:20 Triglycerides 88 mg/dL (2-149) 03/24/16 17:58 Cholesterol 221 mg/dL (50-199) H 03/24/16 17:58 LDL Cholesterol Direct 146 mg/dL (50-130) H 03/24/16 17:58 HDL Cholesterol 58 mg/dL (40-59) 03/24/16 17:58 Cholesterol/HDL Ratio 3.81 % 03/24/16 17:58 Urine Color Yellow (Yellow) 03/24/16 14:27 Urine Turbidity Clear (Clear) 03/24/16 14:27 Urine pH 5.0 (5.0-7.0) 03/24/16 14:27 Ur Specific [place] 1.017 (1.003-1.030) 03/24/16 14:27 Urine Protein <15 mg/dl mg/dL (Negative) 03/24/16 14:27 Urine Glucose (UA) >=500 mg/dL (Negative) 03/24/16 14:27 Urine Ketones Neg mg/dL (Negative) 03/24/16 14:27 Urine Blood Sm (Negative) 03/24/16 14:27 Urine Nitrite Neg (Negative) 03/24/16 14:27 Urine Bilirubin Neg (Negative) 03/24/16 14:27 Urine Urobilinogen < 2.0 mg/dL (<2.0) 03/24/16 14:27 Ur Leukocyte Esterase Neg (Negative) 03/24/16 14:27 Urine WBC (Auto) 2.0 /HPF (0.0-6.0) 03/24/16 14:27 Urine RBC (Auto) < 1.0 /HPF (0.0-6.0) 03/24/16 14:27 U Epithel Cells (Auto) 4.0 /HPF (0-13.0) 03/24/16 14:27 Hyaline Casts 1 /LPF 03/24/16 14:27 Urine Mucus Few /HPF 03/24/16 14:27 Ur Random Creatinine See scanned report 03/31/16 12:20 U Random Total Protein See scanned report 03/31/16 12:20 Protein/Creatinin Ratio See scanned report 03/31/16 12:20 U Abnormal Prot Band 1 See scanned report 03/31/16 12:20 U Abnormal Prot Band 2 See scanned report 03/31/16 12:20 U Abnormal Prot Band 3 See scanned report 03/31/16 12:20 Ketones 1.0 mg/dL (0.2-2.8) 03/24/16 14:00
[2016-04-09] MEDS: NOVOLOG SUB-Q SCH ×4 (00:45→17:31)
[2016-04-09 07:27] LABS: INR 1.43 (0.87-1.13)
[2016-04-09 07:38] LABS: Anion Gap 16 mmol/L; BUN/Creatinine Ratio 20.71; Blood Urea Nitrogen 29 mg/dL (9-20); Calcium 8.3 mg/dL (8.4-10.2); Carbon Dioxide 28 mmol/L (22-30); Chloride 113.2 mmol/L (98-107); Glucose 301 mg/dL (75-100); Potassium 3.9 mmol/L (3.6-5.0); Sodium 153 mmol/L (137-145)
[2016-04-09] MEDS: LEVEMIR SUB-Q SCH (11:07)
[2016-04-09] MEDS: ASPIRIN PO SCH (11:08)
[2016-04-09] MEDS: NORMODYNE PO SCH ×3 (11:08→20:45)
[2016-04-09] MEDS: PEPCID PO SCH ×2 (11:09→22:53)
[2016-04-09] MEDS: KEPPRA PO SCH ×2 (11:09→22:54)
[2016-04-09] MEDS: CORDARONE PO SCH (11:09)
[2016-04-09] MEDS: PROCARDIA XL PO SCH (11:09)
[2016-04-09] MEDS: ZESTRIL PO SCH ×2 (11:09→22:54)
--- NOTE | 2016-04-09 11:23 | Progress Note ---
Addendum entered and electronically signed by RICKY HOGAN MD 17:19: No acute events overnight patient resting in bed with no complaints INR 1.4 Discontinue IV heparin once INR > 2 No further cardiac intervention needed Will sign off Original Note: Assessment and Plan Acute respiratory failure now extubated no evidence of PE by V\Q scan normal ventricular and atriua size, EF 65% on echo this admission. Acute CVA LIZZIE - very dense echo contrast noted in the thoracic aorta consistent with low flow state, severe concentric LVH, normal functioning bioprosthetic aortic valve. Initiated on coumadin therapy Abnormal ECG no significant CAD by [facility] 08/2015 Hx of aortic dissection s/p repair Hx of bioprosthetic aortic valve replacement Hypertension Plan: On anticoagulation with coumadin for multi-infarct CVA and the density of echo contrast in the thoracic aorta which is consistent with low flow state. Target INR 2-3. Pharmacy following. Conservative cardiac management. Subjective Date of service: 04/09/16 Principal diagnosis: CVA Interval history: Patient is resting in bed with eyes closed. No cardiac events overnight. Objective Vital Signs Temp Pulse Pulse Pulse Resp BP BP 04/09/16 07:39 98.7 F 78 22 144/82 04/09/16 05:53 99.1 F 69 18 133/78 04/09/16 01:31 99.4 F 71 20 136/85 04/08/16 21:50 99.6 F 89 20 129/86 04/08/16 21:24 84 131/85 04/08/16 20:58 04/08/16 20:40 68 20 04/08/16 20:00 68 04/08/16 15:44 85 129/81 04/08/16 15:41 97.2 F L 96 H 20 121/81 04/08/16 11:41 96.4 F L 85 22 129/81 Pulse Ox 04/09/16 07:39 98 04/09/16 05:53 99 04/09/16 01:31 99 04/08/16 21:50 100 04/08/16 21:24 04/08/16 20:58 100 04/08/16 20:40 04/08/16 20:00 04/08/16 15:44 04/08/16 15:41 100 04/08/16 11:41 96 - Physical Examination General: No Apparent Distress Cardiac: Positive: Reg Rate and Rhythm Lungs: Positive: Decreased Breath Sounds - Labs and Meds Coagulation 04/09/16 Range/Units 06:42 PT 17.4 H (12.2-14.9) Sec. INR 1.43 H (0.87-1.13) Comprehensive Metabolic Panel 03/31/16 04/09/16 Range/Units 12:20 06:42 Sodium 153 H (137-145) mmol/L Potassium 3.9 (3.6-5.0) mmol/L Chloride 113.2 H (98-107) mmol/L Carbon Dioxide 28 (22-30) mmol/L BUN 29 H (9-20) mg/dL Creatinine 1.4 (0.8-1.5) mg/dL Glucose 301 H (75-100) mg/dL Calcium 8.3 L (8.4-10.2) mg/dL Albumin See scanned report - Imaging and Cardiology EKG: image reviewed
--- NOTE | 2016-04-09 13:49 | Progress Note ---
Assessment and Plan Assessment and plan: Acute respiratory failure. Was initially intubated, now extubated, transferred from ICU , now in telemetry. Pulmonology following Acute ischemic stroke. CT scan revealed acute ischemic infarct in the right cerebellum. MRI reveals subacute infarct in the right cerebellar hemisphere with associated edema and mass effect as previously described. Patient also with multiple areas of acute infarct in the left occipital and frontal lobes that are most likely embolic. LIZZIE done today. No thrombus but decreased flow. Cardiology recommends anticoagulation with Coumadin. INR 1.43 Hypernatremia. Na 153 today, improved from 156 yesterday. Continue d5W. Continue to monitor BMP. Will recheck daily. Continue free water. Encephalopathy. EEG normal. Accelerated hypertension. Blood pressure improving . CAD-stable, continue current beta em, statin Diabetes mellitus type 2. Cont Levemir . History of aortic dissection status post repair. History of prosthetic aortic valve replacement. Echo with normal function on 2015. UTI with Group B strep. Completed ceftriaxone Seizure Disorder. Continue Keppra DVT prophylaxis-On heparin drip, coumadin. GI prophylaxis-Pepcid History Interval history: patient with stroke, encephalopathy, seizure disorder still lethargic, Hospitalist Physical - Physical exam Narrative exam: Gen: Not in acute distress, ill looking HEENT: Normocephalic, atraumatic Neck: supple no JVD Lungs clear to auscultation bilaterally, no crackles or wheeze Heart S1-S2 regular, no murmurs, rubs or gallops Abdomen:soft, Nontender, non distended,PEG tube, normal bowel sounds Extremities :no edema, no clubbing or cyanosis Neuro: lethargic - Constitutional Vitals: Temp Pulse Resp BP Pulse Ox 98.5 F 72 22 161/93 98 04/09/16 11:29 04/09/16 11:29 04/09/16 11:29 04/09/16 11:29 04/09/16 11:29 General appearance: Present: no acute distress Results - Labs CBC & Chem 7: 04/08/16 06:30 04/09/16 06:42 Labs: Laboratory Last Values WBC 12.5 K/mm3 (4.5-11.0) H 04/07/16 05:11 RBC 4.44 M/mm3 (3.65-5.03) 04/07/16 05:11 Hgb 11.8 gm/dl (11.8-15.2) 04/08/16 06:30 Hct 37.3 % (35.5-45.6) 04/08/16 06:30 MCV 82 fl (84-94) L 04/07/16 05:11 MCH 26 pg (28-32) L 04/07/16 05:11 MCHC 31 % (32-34) L 04/07/16 05:11 RDW 14.7 % (13.2-15.2) 04/07/16 05:11 Plt Count 350 K/mm3 (140-440) 04/08/16 06:30 Lymph % (Auto) 6.7 % (13.4-35.0) L 04/06/16 05:23 [place] % (Auto) 8.3 % (0.0-7.3) H 04/06/16 05:23 Eos % (Auto) 0.1 % (0.0-4.3) 04/06/16 05:23 Baso % (Auto) 0.3 % (0.0-1.8) 04/06/16 05:23 Lymph # 0.9 K/mm3 (1.2-5.4) L 04/06/16 05:23 [place] # 1.1 K/mm3 (0.0-0.8) H 04/06/16 05:23 Eos # 0.0 K/mm3 (0.0-0.4) 04/06/16 05:23 Baso # 0.0 K/mm3 (0.0-0.1) 04/06/16 05:23 Add Manual Diff Complete 03/25/16 05:56 Total Counted 100 03/25/16 05:56 Seg Neutrophils % 84.6 % (40.0-70.0) H 04/06/16 05:23 Seg Neuts % (Manual) 91.0 % (40.0-70.0) H 03/25/16 05:56 Band Neutrophils % 1.0 % 03/25/16 05:56 Lymphocytes % (Manual) 4.0 % (13.4-35.0) L 03/25/16 05:56 Reactive Lymphs % (Man) 0 % 03/25/16 05:56 Monocytes % (Manual) 4.0 % (0.0-7.3) 03/25/16 05:56 Eosinophils % (Manual) 0 % (0.0-4.3) 03/25/16 05:56 Basophils % (Manual) 0 % (0.0-1.8) 03/25/16 05:56 Metamyelocytes % 0 % 03/25/16 05:56 Myelocytes % 0 % 03/25/16 05:56 Promyelocytes % 0 % 03/25/16 05:56 Blast Cells % 0 % 03/25/16 05:56 Nucleated RBC % Not Reportable 03/25/16 05:56 Seg Neutrophils # 11.0 K/mm3 (1.8-7.7) H 04/06/16 05:23 Seg Neutrophils # Man 19.4 K/mm3 (1.8-7.7) H 03/25/16 05:56 Band Neutrophils # 0.2 K/mm3 03/25/16 05:56 Lymphocytes # (Manual) 0.9 K/mm3 (1.2-5.4) L 03/25/16 05:56 Abs React Lymphs (Man) 0.0 K/mm3 03/25/16 05:56 Monocytes # (Manual) 0.9 K/mm3 (0.0-0.8) H 03/25/16 05:56 Eosinophils # (Manual) 0.0 K/mm3 (0.0-0.4) 03/25/16 05:56 Basophils # (Manual) 0.0 K/mm3 (0.0-0.1) 03/25/16 05:56 Metamyelocytes # 0.0 K/mm3 03/25/16 05:56 Myelocytes # 0.0 K/mm3 03/25/16 05:56 Promyelocytes # 0.0 K/mm3 03/25/16 05:56 Blast Cells # 0.0 K/mm3 03/25/16 05:56 WBC Morphology Not Reportable 03/25/16 05:56 Hypersegmented Neuts Not Reportable 03/25/16 05:56 Hyposegmented Neuts Not Reportable 03/25/16 05:56 Hypogranular Neuts Not Reportable 03/25/16 05:56 Smudge Cells Not Reportable 03/25/16 05:56 Toxic Granulation Not Reportable 03/25/16 05:56 Toxic Vacuolation Not Reportable 03/25/16 05:56 Dohle Bodies Not Reportable 03/25/16 05:56 Pelger-Huet Anomaly Not Reportable 03/25/16 05:56 Corina Rods Not Reportable 03/25/16 05:56 Platelet Estimate Appears normal 03/25/16 05:56 Clumped Platelets Not Reportable 03/25/16 05:56 Plt Clumps, EDTA Not Reportable 03/25/16 05:56 Large Platelets Not Reportable 03/25/16 05:56 Giant Platelets Not Reportable 03/25/16 05:56 Platelet Satelliting Not Reportable 03/25/16 05:56 Plt Morphology Comment Not Reportable 03/25/16 05:56 RBC Morphology Normal 03/25/16 05:56 Dimorphic RBCs Not Reportable 03/25/16 05:56 Polychromasia Not Reportable 03/25/16 05:56 Hypochromasia Not Reportable 03/25/16 05:56 Poikilocytosis Not Reportable 03/25/16 05:56 Anisocytosis Not Reportable 03/25/16 05:56 Microcytosis Not Reportable 03/25/16 05:56 Macrocytosis Not Reportable 03/25/16 05:56 Spherocytes Not Reportable 03/25/16 05:56 Pappenheimer Bodies Not Reportable 03/25/16 05:56 Sickle Cells Not Reportable 03/25/16 05:56 Target Cells Not Reportable 03/25/16 05:56 Tear Drop Cells Not Reportable 03/25/16 05:56 Ovalocytes Not Reportable 03/25/16 05:56 Helmet Cells Not Reportable 03/25/16 05:56 Mcgrath-[employer] Bodies Not Reportable 03/25/16 05:56 [place] Rings Not Reportable 03/25/16 05:56 [place]greg[place] Cells Not Reportable 03/25/16 05:56 Bite Cells Not Reportable 03/25/16 05:56 Crenated Cell Not Reportable 03/25/16 05:56 Elliptocytes Not Reportable 03/25/16 05:56 Acanthocytes (Spur) Not Reportable 03/25/16 05:56 Rouleaux Not Reportable 03/25/16 05:56 Hemoglobin C Crystals Not Reportable 03/25/16 05:56 Schistocytes Not Reportable 03/25/16 05:56 Malaria parasites Not Reportable 03/25/16 05:56 Gideon Bodies Not Reportable 03/25/16 05:56 Hem Pathologist Commnt No 03/25/16 05:56 PT 17.4 Sec. (12.2-14.9) H 04/09/16 06:42 INR 1.43 (0.87-1.13) H 04/09/16 06:42 APTT 42.1 Sec. (24.2-36.6) H 04/04/16 09:55 Heparin Anti-Xa Level 0.24 U.I./ml (0.3-0.7) L 04/08/16 10:28 POC ABG pH 7.491 (7.35-7.45) H 04/05/16 05:32 POC ABG pCO2 42.3 (35-45) 04/05/16 05:32 POC ABG pO2 90 (80-105) 04/05/16 05:32 POC ABG HCO3 32.3 04/05/16 05:32 POC ABG Total CO2 34 04/05/16 05:32 POC ABG O2 Sat 98 04/05/16 05:32 POC ABG Base Excess 9 04/05/16 05:32 VBG pH 7.418 (7.320-7.420) 03/24/16 14:00 FiO2 28 % 04/05/16 05:32 Sodium 153 mmol/L (137-145) H 04/09/16 06:42 Potassium 3.9 mmol/L (3.6-5.0) 04/09/16 06:42 Chloride 113.2 mmol/L (98-107) H 04/09/16 06:42 Carbon Dioxide 28 mmol/L (22-30) 04/09/16 06:42 Anion Gap 16 mmol/L 04/09/16 06:42 BUN 29 mg/dL (9-20) H 04/09/16 06:42 Creatinine 1.4 mg/dL (0.8-1.5) 04/09/16 06:42 Estimated GFR > 60 ml/min 04/09/16 06:42 BUN/Creatinine Ratio 20.71 % 04/09/16 06:42 Glucose 301 mg/dL (75-100) H 04/09/16 06:42 POC Glucose 249 (70-105) H 04/09/16 06:17 Hemoglobin A1c 9.6 % (4-6) H 03/24/16 14:00 Lactic Acid 2.8 mmol/L (0.7-2.1) H 03/24/16 15:26 Calcium 8.3 mg/dL (8.4-10.2) L 04/09/16 06:42 Phosphorus 2.3 mg/dL (2.5-4.5) L D 03/30/16 04:00 Magnesium 1.9 mg/dL (1.7-2.3) 03/30/16 04:00 Total Bilirubin 0.3 mg/dL (0.1-1.2) 03/24/16 14:00 AST 24 units/L (5-40) 03/24/16 14:00 ALT 38 units/L (7-56) 03/24/16 14:00 Alkaline Phosphatase 77 units/L (35-129) 03/24/16 14:00 Lactate Dehydrogenase 460 units/L (91-180) H 03/25/16 05:56 Total Creatine Kinase 356 units/L (55-170) H 03/28/16 13:29 Troponin T < 0.010 ng/mL (0.00-0.029) 03/28/16 13:29 NT-Pro-B Natriuret Pep 897.9 pg/mL (0-900) 04/03/16 04:10 Serum Total Protein 7.1 g/dL (6.1-8.1) 03/25/16 13:00 Total Protein 7.4 g/dL (6.3-8.2) 03/24/16 14:00 Albumin See scanned report 03/31/16 12:20 Albumin/Globulin Ratio 0.9 % 03/24/16 14:00 Gtntt-6-Vttkveioz See scanned report 03/31/16 12:20 Ywbqn-2-Nuoeaxjhz See scanned report 03/31/16 12:20 Beta Globulins See scanned report 03/31/16 12:20 Wsrw-0-Qktpioyfxapwg 2.46 mg/L (<=2.51) 03/25/16 13:00 Gamma Globulins See scanned report 03/31/16 12:20 Abnorm Protein Band 1 see below (()) 03/25/16 13:00 PEP Interpretation See scanned report 03/31/16 12:20 Triglycerides 88 mg/dL (2-149) 03/24/16 17:58 Cholesterol 221 mg/dL (50-199) H 03/24/16 17:58 LDL Cholesterol Direct 146 mg/dL (50-130) H 03/24/16 17:58 HDL Cholesterol 58 mg/dL (40-59) 03/24/16 17:58 Cholesterol/HDL Ratio 3.81 % 03/24/16 17:58 Urine Color Yellow (Yellow) 03/24/16 14:27 Urine Turbidity Clear (Clear) 03/24/16 14:27 Urine pH 5.0 (5.0-7.0) 03/24/16 14:27 Ur Specific [place] 1.017 (1.003-1.030) 03/24/16 14:27 Urine Protein <15 mg/dl mg/dL (Negative) 03/24/16 14:27 Urine Glucose (UA) >=500 mg/dL (Negative) 03/24/16 14:27 Urine Ketones Neg mg/dL (Negative) 03/24/16 14:27 Urine Blood Sm (Negative) 03/24/16 14:27 Urine Nitrite Neg (Negative) 03/24/16 14:27 Urine Bilirubin Neg (Negative) 03/24/16 14:27 Urine Urobilinogen < 2.0 mg/dL (<2.0) 03/24/16 14:27 Ur Leukocyte Esterase Neg (Negative) 03/24/16 14:27 Urine WBC (Auto) 2.0 /HPF (0.0-6.0) 03/24/16 14:27 Urine RBC (Auto) < 1.0 /HPF (0.0-6.0) 03/24/16 14:27 U Epithel Cells (Auto) 4.0 /HPF (0-13.0) 03/24/16 14:27 Hyaline Casts 1 /LPF 03/24/16 14:27 Urine Mucus Few /HPF 03/24/16 14:27 Ur Random Creatinine See scanned report 03/31/16 12:20 U Random Total Protein See scanned report 03/31/16 12:20 Protein/Creatinin Ratio See scanned report 03/31/16 12:20 U Abnormal Prot Band 1 See scanned report 03/31/16 12:20 U Abnormal Prot Band 2 See scanned report 03/31/16 12:20 U Abnormal Prot Band 3 See scanned report 03/31/16 12:20 Ketones 1.0 mg/dL (0.2-2.8) 03/24/16 14:00
[2016-04-09] MEDS: COUMADIN PO SCH (17:30)
[2016-04-10] MEDS: NOVOLOG SUB-Q SCH ×4 (01:20→18:19)
[2016-04-10 08:06] LABS: BUN/Creatinine Ratio 23.07; Blood Urea Nitrogen 30 mg/dL (9-20); Calcium 8.3 mg/dL (8.4-10.2); Carbon Dioxide 29 mmol/L (22-30); Chloride 118.6 mmol/L (98-107); Glucose 330 mg/dL (75-100); Potassium 3.9 mmol/L (3.6-5.0); Sodium 158 mmol/L (137-145)
[2016-04-10 08:17] LABS: Anion Gap 14 mmol/L
[2016-04-10 08:35] LABS: Hematocrit 36.7 % (35.5-45.6); Hemoglobin 11.3 gm/dl (11.8-15.2)
[2016-04-10] MEDS: NORMODYNE PO SCH ×3 (08:35→22:42)
[2016-04-10 08:42] LABS: INR 1.42 (0.87-1.13)
[2016-04-10] MEDS: LEVEMIR SUB-Q SCH ×2 (09:11→12:24)
[2016-04-10] MEDS: KEPPRA PO SCH ×2 (10:11→22:35)
[2016-04-10] MEDS: ASPIRIN PO SCH (10:12)
[2016-04-10] MEDS: PROCARDIA XL PO SCH (10:12)
[2016-04-10] MEDS: PEPCID PO SCH ×2 (10:12→22:38)
[2016-04-10] MEDS: ZESTRIL PO SCH ×2 (10:12→22:35)
[2016-04-10] MEDS: CORDARONE PO SCH (10:13)
[2016-04-10] MEDS: D5W 1,000 ML IV SCH ×2 (10:22→22:39)
--- NOTE | 2016-04-10 11:00 | Progress Note ---
Assessment and Plan Assessment and plan: Acute respiratory failure. Was initially intubated, now extubated, transferred from ICU , now in telemetry. Pulmonology following Acute ischemic stroke. CT scan revealed acute ischemic infarct in the right cerebellum. MRI reveals subacute infarct in the right cerebellar hemisphere with associated edema and mass effect as previously described. Patient also with multiple areas of acute infarct in the left occipital and frontal lobes that are most likely embolic. LIZZIE done today. No thrombus but decreased flow. Cardiology recommends anticoagulation with Coumadin. INR 1.42 today. Hypernatremia. Na up to 158 today. Continue to monitor BMP. Will recheck daily. Continue 5% Dextrose and free water. Encephalopathy. EEG normal. Accelerated hypertension. Blood pressure improving . CAD-stable, continue current beta em, statin Diabetes mellitus type 2. This is uncontrolled. Increase Levemir to 40 units every morning . History of aortic dissection status post repair. History of prosthetic aortic valve replacement. Echo with normal function on 2015. UTI with Group B strep. Completed ceftriaxone Seizure Disorder. Continue Keppra DVT prophylaxis-On heparin drip, coumadin. GI prophylaxis-Pepcid Disposition:. Discussed with case management. Patient needs half-way facility placement. History Interval history: patient with stroke, encephalopathy, seizure disorder still lethargic, no fever Hospitalist Physical - Physical exam Narrative exam: Gen: Not in acute distress, ill looking HEENT: Normocephalic, atraumatic Neck: supple no JVD Lungs clear to auscultation bilaterally, no crackles or wheeze Heart S1-S2 regular, no murmurs, rubs or gallops Abdomen:soft, Nontender, non distended,PEG tube present, normal bowel sounds Extremities :no edema, no clubbing or cyanosis Neuro: lethargic,aphasia,dysphagia - Constitutional Vitals: Temp Pulse Resp BP Pulse Ox 100.2 F H 97 H 22 165/105 100 04/10/16 07:22 04/10/16 08:35 04/10/16 07:22 04/10/16 10:12 04/10/16 10:23 General appearance: Present: no acute distress Results - Labs CBC & Chem 7: 04/10/16 07:34 04/10/16 07:34 Labs: Laboratory Last Values WBC 12.5 K/mm3 (4.5-11.0) H 04/07/16 05:11 RBC 4.44 M/mm3 (3.65-5.03) 04/07/16 05:11 Hgb 11.3 gm/dl (11.8-15.2) L 04/10/16 07:34 Hct 36.7 % (35.5-45.6) 04/10/16 07:34 MCV 82 fl (84-94) L 04/07/16 05:11 MCH 26 pg (28-32) L 04/07/16 05:11 MCHC 31 % (32-34) L 04/07/16 05:11 RDW 14.7 % (13.2-15.2) 04/07/16 05:11 Plt Count 312 K/mm3 (140-440) 04/10/16 07:34 Lymph % (Auto) 6.7 % (13.4-35.0) L 04/06/16 05:23 Chambers % (Auto) 8.3 % (0.0-7.3) H 04/06/16 05:23 Eos % (Auto) 0.1 % (0.0-4.3) 04/06/16 05:23 Baso % (Auto) 0.3 % (0.0-1.8) 04/06/16 05:23 Lymph # 0.9 K/mm3 (1.2-5.4) L 04/06/16 05:23 Chambers # 1.1 K/mm3 (0.0-0.8) H 04/06/16 05:23 Eos # 0.0 K/mm3 (0.0-0.4) 04/06/16 05:23 Baso # 0.0 K/mm3 (0.0-0.1) 04/06/16 05:23 Add Manual Diff Complete 03/25/16 05:56 Total Counted 100 03/25/16 05:56 Seg Neutrophils % 84.6 % (40.0-70.0) H 04/06/16 05:23 Seg Neuts % (Manual) 91.0 % (40.0-70.0) H 03/25/16 05:56 Band Neutrophils % 1.0 % 03/25/16 05:56 Lymphocytes % (Manual) 4.0 % (13.4-35.0) L 03/25/16 05:56 Reactive Lymphs % (Man) 0 % 11/24/16 05:56 Monocytes % (Manual) 4.0 % (0.0-7.3) 03/25/16 05:56 Eosinophils % (Manual) 0 % (0.0-4.3) 03/25/16 05:56 Basophils % (Manual) 0 % (0.0-1.8) 03/25/16 05:56 Metamyelocytes % 0 % 03/25/16 05:56 Myelocytes % 0 % 03/25/16 05:56 Promyelocytes % 0 % 03/25/16 05:56 Blast Cells % 0 % 03/25/16 05:56 Nucleated RBC % Not Reportable 03/25/16 05:56 Seg Neutrophils # 11.0 K/mm3 (1.8-7.7) H 04/06/16 05:23 Seg Neutrophils # Man 19.4 K/mm3 (1.8-7.7) H 03/25/16 05:56 Band Neutrophils # 0.2 K/mm3 03/25/16 05:56 Lymphocytes # (Manual) 0.9 K/mm3 (1.2-5.4) L 03/25/16 05:56 Abs React Lymphs (Man) 0.0 K/mm3 03/25/16 05:56 Monocytes # (Manual) 0.9 K/mm3 (0.0-0.8) H 03/25/16 05:56 Eosinophils # (Manual) 0.0 K/mm3 (0.0-0.4) 03/25/16 05:56 Basophils # (Manual) 0.0 K/mm3 (0.0-0.1) 03/25/16 05:56 Metamyelocytes # 0.0 K/mm3 03/25/16 05:56 Myelocytes # 0.0 K/mm3 03/25/16 05:56 Promyelocytes # 0.0 K/mm3 03/25/16 05:56 Blast Cells # 0.0 K/mm3 03/25/16 05:56 WBC Morphology Not Reportable 03/25/16 05:56 Hypersegmented Neuts Not Reportable 03/25/16 05:56 Hyposegmented Neuts Not Reportable 03/25/16 05:56 Hypogranular Neuts Not Reportable 03/25/16 05:56 Smudge Cells Not Reportable 03/25/16 05:56 Toxic Granulation Not Reportable 03/25/16 05:56 Toxic Vacuolation Not Reportable 03/25/16 05:56 Dohle Bodies Not Reportable 03/25/16 05:56 Pelger-Huet Anomaly Not Reportable 03/25/16 05:56 Corina Rods Not Reportable 03/25/16 05:56 Platelet Estimate Appears normal 03/25/16 05:56 Clumped Platelets Not Reportable 03/25/16 05:56 Plt Clumps, EDTA Not Reportable 03/25/16 05:56 Large Platelets Not Reportable 03/25/16 05:56 Giant Platelets Not Reportable 03/25/16 05:56 Platelet Satelliting Not Reportable 03/25/16 05:56 Plt Morphology Comment Not Reportable 03/25/16 05:56 RBC Morphology Normal 03/25/16 05:56 Dimorphic RBCs Not Reportable 03/25/16 05:56 Polychromasia Not Reportable 03/25/16 05:56 Hypochromasia Not Reportable 03/25/16 05:56 Poikilocytosis Not Reportable 03/25/16 05:56 Anisocytosis Not Reportable 03/25/16 05:56 Microcytosis Not Reportable 03/25/16 05:56 Macrocytosis Not Reportable 03/25/16 05:56 Spherocytes Not Reportable 03/25/16 05:56 Pappenheimer Bodies Not Reportable 03/25/16 05:56 Sickle Cells Not Reportable 03/25/16 05:56 Target Cells Not Reportable 03/25/16 05:56 Tear Drop Cells Not Reportable 03/25/16 05:56 Ovalocytes Not Reportable 03/25/16 05:56 Helmet Cells Not Reportable 03/25/16 05:56 [place] Bodies Not Reportable 03/25/16 05:56 [place] Rings Not Reportable 03/25/16 05:56 [place] Cells Not Reportable 03/25/16 05:56 Bite Cells Not Reportable 03/25/16 05:56 Crenated Cell Not Reportable 03/25/16 05:56 Elliptocytes Not Reportable 03/25/16 05:56 Acanthocytes (Spur) Not Reportable 03/25/16 05:56 Rouleaux Not Reportable 03/25/16 05:56 Hemoglobin C Crystals Not Reportable 03/25/16 05:56 Schistocytes Not Reportable 03/25/16 05:56 Malaria parasites Not Reportable 03/25/16 05:56 Gideon Bodies Not Reportable 03/25/16 05:56 Hem Pathologist Commnt No 03/25/16 05:56 PT 17.3 Sec. (12.2-14.9) H 04/10/16 07:34 INR 1.42 (0.87-1.13) H 04/10/16 07:34 APTT 42.1 Sec. (24.2-36.6) H 04/04/16 09:55 Heparin Anti-Xa Level 0.64 U.I./ml (0.3-0.7) 04/10/16 07:34 POC ABG pH 7.491 (7.35-7.45) H 04/05/16 05:32 POC ABG pCO2 42.3 (35-45) 04/05/16 05:32 POC ABG pO2 90 (80-105) 04/05/16 05:32 POC ABG HCO3 32.3 04/05/16 05:32 POC ABG Total CO2 34 04/05/16 05:32 POC ABG O2 Sat 98 04/05/16 05:32 POC ABG Base Excess 9 04/05/16 05:32 VBG pH 7.418 (7.320-7.420) 03/24/16 14:00 FiO2 28 % 04/05/16 05:32 Sodium 158 mmol/L (137-145) H 04/10/16 07:34 Potassium 3.9 mmol/L (3.6-5.0) 04/10/16 07:34 Chloride 118.6 mmol/L (98-107) H 04/10/16 07:34 Carbon Dioxide 29 mmol/L (22-30) 04/10/16 07:34 Anion Gap 14 mmol/L 04/10/16 07:34 BUN 30 mg/dL (9-20) H 04/10/16 07:34 Creatinine 1.3 mg/dL (0.8-1.5) 04/10/16 07:34 Estimated GFR > 60 ml/min 04/10/16 07:34 BUN/Creatinine Ratio 23.07 % 04/10/16 07:34 Glucose 330 mg/dL (75-100) H 04/10/16 07:34 POC Glucose 323 (70-105) H 04/10/16 00:53 Hemoglobin A1c 9.6 % (4-6) H 03/24/16 14:00 Lactic Acid 2.8 mmol/L (0.7-2.1) H 03/24/16 15:26 Calcium 8.3 mg/dL (8.4-10.2) L 04/10/16 07:34 Phosphorus 2.3 mg/dL (2.5-4.5) L D 03/30/16 04:00 Magnesium 1.9 mg/dL (1.7-2.3) 03/30/16 04:00 Total Bilirubin 0.3 mg/dL (0.1-1.2) 03/24/16 14:00 AST 24 units/L (5-40) 03/24/16 14:00 ALT 38 units/L (7-56) 03/24/16 14:00 Alkaline Phosphatase 77 units/L (35-129) 03/24/16 14:00 Lactate Dehydrogenase 460 units/L (91-180) H 03/25/16 05:56 Total Creatine Kinase 356 units/L (55-170) H 03/28/16 13:29 Troponin T < 0.010 ng/mL (0.00-0.029) 03/28/16 13:29 NT-Pro-B Natriuret Pep 897.9 pg/mL (0-900) 04/03/16 04:10 Serum Total Protein 7.1 g/dL (6.1-8.1) 03/25/16 13:00 Total Protein 7.4 g/dL (6.3-8.2) 03/24/16 14:00 Albumin See scanned report 03/31/16 12:20 Albumin/Globulin Ratio 0.9 % 03/24/16 14:00 [id number] See scanned report 03/31/16 12:20 [id number]-[id number] See scanned report 03/31/16 12:20 Beta Globulins See scanned report 03/31/16 12:20 [id number]-[id number] 2.46 mg/L (<=2.51) 03/25/16 13:00 Gamma Globulins See scanned report 03/31/16 12:20 Abnorm Protein Band 1 see below (()) 03/25/16 13:00 PEP Interpretation See scanned report 03/31/16 12:20 Triglycerides 88 mg/dL (2-149) 03/24/16 17:58 Cholesterol 221 mg/dL (50-199) H 03/24/16 17:58 LDL Cholesterol Direct 146 mg/dL (50-130) H 03/24/16 17:58 HDL Cholesterol 58 mg/dL (40-59) 03/24/16 17:58 Cholesterol/HDL Ratio 3.81 % 03/24/16 17:58 Urine Color Yellow (Yellow) 03/24/16 14:27 Urine Turbidity Clear (Clear) 03/24/16 14:27 Urine pH 5.0 (5.0-7.0) 03/24/16 14:27 Ur Specific [place] 1.017 (1.003-1.030) 03/24/16 14:27 Urine Protein <15 mg/dl mg/dL (Negative) 03/24/16 14:27 Urine Glucose (UA) >=500 mg/dL (Negative) 03/24/16 14:27 Urine Ketones Neg mg/dL (Negative) 03/24/16 14:27 Urine Blood Sm (Negative) 03/24/16 14:27 Urine Nitrite Neg (Negative) 03/24/16 14:27 Urine Bilirubin Neg (Negative) 03/24/16 14:27 Urine Urobilinogen < 2.0 mg/dL (<2.0) 03/24/16 14:27 Ur Leukocyte Esterase Neg (Negative) 03/24/16 14:27 Urine WBC (Auto) 2.0 /HPF (0.0-6.0) 03/24/16 14:27 Urine RBC (Auto) < 1.0 /HPF (0.0-6.0) 03/24/16 14:27 U Epithel Cells (Auto) 4.0 /HPF (0-13.0) 03/24/16 14:27 Hyaline Casts 1 /LPF 03/24/16 14:27 Urine Mucus Few /HPF 03/24/16 14:27 Ur Random Creatinine See scanned report 03/31/16 12:20 U Random Total Protein See scanned report 03/31/16 12:20 Protein/Creatinin Ratio See scanned report 03/31/16 12:20 U Abnormal Prot Band 1 See scanned report 03/31/16 12:20 U Abnormal Prot Band 2 See scanned report 03/31/16 12:20 U Abnormal Prot Band 3 See scanned report 03/31/16 12:20 Ketones 1.0 mg/dL (0.2-2.8) 03/24/16 14:00
--- NOTE | 2016-04-10 12:53 | Progress Note ---
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 Anticoagulation per cards recs. 2. Continue supplemental O2 3. Aspiration precautions. 4. Pulm status is stable, will sign off for now. Call if questions. Subjective Date of service: 04/10/16 Principal diagnosis: CVA Interval history: No acute events. Remains on nasal cannula Objective Vital Signs - 12hr 04/10/16 04/10/16 04/10/16 01:20 06:35 07:22 Temperature 99.6 F 98.1 F 100.2 F H Pulse Rate Pulse Rate [ 81 89 97 H Apical] Respiratory 20 20 22 Rate Blood Pressure Blood Pressure 141/85 153/96 165/105 [Left Arm] O2 Sat by Pulse 100 100 96 Oximetry 04/10/16 04/10/16 04/10/16 08:35 10:00 10:12 Temperature Pulse Rate 97 H Pulse Rate [ Apical] Respiratory 18 Rate Blood Pressure 165/105 165/105 Blood Pressure [Left Arm] O2 Sat by Pulse Oximetry 04/10/16 04/10/16 04/10/16 10:23 11:27 12:00 Temperature 97.1 F L Pulse Rate 92 H Pulse Rate [ 92 H Apical] Respiratory 22 Rate Blood Pressure Blood Pressure 123/83 [Left Arm] O2 Sat by Pulse 100 100 Oximetry Constitutional: no acute distress Eyes: non-icteric ENT: other (orally intubated and sedated) Neck: supple Effort: normal Ascultation: Bilateral: clear, rhonchi (occasional) Percussion: Bilateral: not dull Cardiovascular: regular rate and rhythm, irregular rhythm Gastrointestinal: normoactive bowel sounds, soft, non-tender Extremities: no cyanosis, no edema Neurologic: other (RASS 0 ) CBC and BMP: 04/10/16 07:34 04/10/16 07:34 ABG, PT/INR, D-dimer: ABG POC ABG pH 7.491 (7.35-7.45) H 04/05/16 05:32 POC ABG pCO2 42.3 (35-45) 04/05/16 05:32 POC ABG pO2 90 (80-105) 04/05/16 05:32 POC ABG HCO3 32.3 04/05/16 05:32 POC ABG Total CO2 34 04/05/16 05:32 POC ABG O2 Sat 98 04/05/16 05:32 PT/INR, D-dimer PT 17.3 Sec. (12.2-14.9) H 04/10/16 07:34 INR 1.42 (0.87-1.13) H 04/10/16 07:34 Abnormal lab findings: Abnormal Labs 03/24/16 03/24/16 03/24/16 17:58 20:25 23:23 WBC RBC Hgb Hct MCV MCH MCHC Plt Count Lymph % (Auto) Posey % (Auto) Lymph # Posey # Baso # Seg Neutrophils % Seg Neuts % (Manual) Lymphocytes % (Manual) Seg Neutrophils # Seg Neutrophils # Man Lymphocytes # (Manual) Monocytes # (Manual) PT INR APTT Heparin Anti-Xa Level POC ABG pH POC ABG pCO2 POC ABG pO2 Sodium 169 H* Potassium 3.5 L Chloride 130.3 H Carbon Dioxide BUN 28 H Creatinine 1.8 H Glucose POC Glucose 112 H Calcium Phosphorus Lactate Dehydrogenase Total Creatine Kinase NT-Pro-B Natriuret Pep Albumin Qvfss-2-Tthtfwtdq Kgprt-8-Tvehzmtlc Beta Globulins PEP Interpretation Cholesterol 221 H LDL Cholesterol Direct 146 H 03/25/16 03/25/16 03/25/16 05:56 05:56 05:56 WBC 21.3 H RBC 6.32 H Hgb 16.7 H Hct 52.7 H MCV 83 L MCH 27 L MCHC Plt Count Lymph % (Auto) Posey % (Auto) Lymph # Posey # Baso # Seg Neutrophils % Seg Neuts % (Manual) 91.0 H Lymphocytes % (Manual) 4.0 L Seg Neutrophils # Seg Neutrophils # Man 19.4 H Lymphocytes # (Manual) 0.9 L Monocytes # (Manual) 0.9 H PT INR APTT Heparin Anti-Xa Level POC ABG pH POC ABG pCO2 POC ABG pO2 Sodium 172 H* Potassium 3.5 L Chloride 130.4 H Carbon Dioxide BUN 29 H Creatinine 1.8 H Glucose 187 H POC Glucose Calcium Phosphorus Lactate Dehydrogenase 460 H Total Creatine Kinase NT-Pro-B Natriuret Pep Albumin Ontdj-1-Rqkpqqanc Pceep-9-Eaozyhxmp Beta Globulins PEP Interpretation Cholesterol LDL Cholesterol Direct 11/24/16 11/24/16 11/24/16 07:55 12:19 13:00 WBC RBC Hgb Hct MCV MCH MCHC Plt Count Lymph % (Auto) Posey % (Auto) Lymph # Posey # Baso # Seg Neutrophils % Seg Neuts % (Manual) Lymphocytes % (Manual) Seg Neutrophils # Seg Neutrophils # Man Lymphocytes # (Manual) Monocytes # (Manual) PT INR APTT Heparin Anti-Xa Level POC ABG pH POC ABG pCO2 POC ABG pO2 Sodium Potassium Chloride Carbon Dioxide BUN Creatinine Glucose POC Glucose 231 H 314 H Calcium Phosphorus Lactate Dehydrogenase Total Creatine Kinase NT-Pro-B Natriuret Pep Albumin 3.4 L Gftjx-6-Chfsmdzgy 0.4 H Xvayw-9-Qfcqypfuc 1.1 H Beta Globulins 0.6 H PEP Interpretation see below H Cholesterol LDL Cholesterol Direct 03/25/16 03/25/16 03/26/16 16:41 22:45 08:32 WBC RBC Hgb Hct MCV MCH MCHC Plt Count Lymph % (Auto) Posey % (Auto) Lymph # Posey # Baso # Seg Neutrophils % Seg Neuts % (Manual) Lymphocytes % (Manual) Seg Neutrophils # Seg Neutrophils # Man Lymphocytes # (Manual) Monocytes # (Manual) PT INR APTT Heparin Anti-Xa Level POC ABG pH POC ABG pCO2 POC ABG pO2 Sodium Potassium Chloride Carbon Dioxide BUN Creatinine Glucose POC Glucose 444 H 326 H 360 H Calcium Phosphorus Lactate Dehydrogenase Total Creatine Kinase NT-Pro-B Natriuret Pep Albumin Suaah-2-Zgnkmfbwu Uuwlm-4-Pfyswhwsr Beta Globulins PEP Interpretation Cholesterol LDL Cholesterol Direct 03/26/16 03/26/16 03/26/16 12:38 15:33 15:47 WBC RBC Hgb Hct MCV MCH MCHC Plt Count Lymph % (Auto) Posey % (Auto) Lymph # Posey # Baso # Seg Neutrophils % Seg Neuts % (Manual) Lymphocytes % (Manual) Seg Neutrophils # Seg Neutrophils # Man Lymphocytes # (Manual) Monocytes # (Manual) PT INR APTT Heparin Anti-Xa Level POC ABG pH 7.511 H POC ABG pCO2 26.5 L POC ABG pO2 70 L Sodium Potassium Chloride Carbon Dioxide BUN Creatinine Glucose POC Glucose 280 H 174 H Calcium Phosphorus Lactate Dehydrogenase Total Creatine Kinase NT-Pro-B Natriuret Pep Albumin Qzdul-0-Pvmcsowsr Gwquo-3-Kfvyslvzm Beta Globulins PEP Interpretation Cholesterol LDL Cholesterol Direct 03/26/16 03/26/16 03/26/16 16:47 16:47 18:51 WBC 14.0 H RBC 5.17 H Hgb Hct MCV MCH 26 L MCHC 31 L Plt Count 139 L Lymph % (Auto) Posey % (Auto) Lymph # Posey # Baso # Seg Neutrophils % Seg Neuts % (Manual) Lymphocytes % (Manual) Seg Neutrophils # Seg Neutrophils # Man Lymphocytes # (Manual) Monocytes # (Manual) PT INR APTT Heparin Anti-Xa Level POC ABG pH POC ABG pCO2 33.9 L POC ABG pO2 150 H Sodium 164 H* Potassium 3.4 L Chloride 128.5 H Carbon Dioxide BUN 30 H Creatinine 2.2 H Glucose 121 H POC Glucose Calcium 8.1 L Phosphorus Lactate Dehydrogenase Total Creatine Kinase NT-Pro-B Natriuret Pep Albumin Unsxj-1-Tdyuvxblz Csarh-7-Ukhbvgvkg Beta Globulins PEP Interpretation Cholesterol LDL Cholesterol Direct 03/27/16 03/27/16 03/27/16 02:19 05:47 06:02 WBC RBC Hgb Hct MCV MCH MCHC Plt Count Lymph % (Auto) Posey % (Auto) Lymph # Posey # Baso # Seg Neutrophils % Seg Neuts % (Manual) Lymphocytes % (Manual) Seg Neutrophils # Seg Neutrophils # Man Lymphocytes # (Manual) Monocytes # (Manual) PT INR APTT Heparin Anti-Xa Level POC ABG pH POC ABG pCO2 27.3 L 30.3 L POC ABG pO2 50 L 112 H Sodium 158 H Potassium Chloride 126.7 H Carbon Dioxide 20 L BUN 25 H Creatinine 1.7 H Glucose POC Glucose Calcium 7.0 L Phosphorus Lactate Dehydrogenase Total Creatine Kinase NT-Pro-B Natriuret Pep Albumin Wlgtk-6-Lgnwxajri Dgkpn-5-Wbmgzwgbt Beta Globulins PEP Interpretation Cholesterol LDL Cholesterol Direct 03/27/16 03/27/16 03/27/16 07:51 09:20 11:45 WBC 14.2 H RBC Hgb Hct MCV 83 L MCH 27 L MCHC Plt Count 113 L Lymph % (Auto) Posey % (Auto) Lymph # Posey # Baso # Seg Neutrophils % Seg Neuts % (Manual) Lymphocytes % (Manual) Seg Neutrophils # Seg Neutrophils # Man Lymphocytes # (Manual) Monocytes # (Manual) PT INR APTT Heparin Anti-Xa Level POC ABG pH POC ABG pCO2 POC ABG pO2 Sodium Potassium Chloride Carbon Dioxide BUN Creatinine Glucose POC Glucose 124 H 241 H Calcium Phosphorus Lactate Dehydrogenase Total Creatine Kinase NT-Pro-B Natriuret Pep Albumin Jphcs-0-Pjibxxwgr Qflza-3-Nkyziwgcj Beta Globulins PEP Interpretation Cholesterol LDL Cholesterol Direct 03/27/16 03/27/16 03/28/16 16:39 22:03 03:29 WBC RBC Hgb Hct MCV MCH MCHC Plt Count Lymph % (Auto) Posey % (Auto) Lymph # Posey # Baso # Seg Neutrophils % Seg Neuts % (Manual) Lymphocytes % (Manual) Seg Neutrophils # Seg Neutrophils # Man Lymphocytes # (Manual) Monocytes # (Manual) PT INR APTT Heparin Anti-Xa Level POC ABG pH POC ABG pCO2 POC ABG pO2 Sodium Potassium Chloride Carbon Dioxide BUN Creatinine Glucose POC Glucose 266 H 167 H 241 H Calcium Phosphorus Lactate Dehydrogenase Total Creatine Kinase NT-Pro-B Natriuret Pep Albumin Mxpru-6-Rsrshpqwp Xtcgr-8-Zcnxffaar Beta Globulins PEP Interpretation Cholesterol LDL Cholesterol Direct 03/28/16 03/28/16 03/28/16 05:00 05:00 05:00 WBC RBC Hgb Hct MCV 83 L MCH 27 L MCHC Plt Count 106 L Lymph % (Auto) Posey % (Auto) 10.1 H Lymph # Posey # 1.0 H Baso # Seg Neutrophils % 75.1 H Seg Neuts % (Manual) Lymphocytes % (Manual) Seg Neutrophils # Seg Neutrophils # Man Lymphocytes # (Manual) Monocytes # (Manual) PT INR APTT Heparin Anti-Xa Level POC ABG pH POC ABG pCO2 POC ABG pO2 Sodium 147 H D Potassium 3.1 L D Chloride 112.3 H Carbon Dioxide 21 L BUN Creatinine Glucose 208 H POC Glucose Calcium 7.0 L Phosphorus 2.2 L Lactate Dehydrogenase Total Creatine Kinase NT-Pro-B Natriuret Pep Albumin Cyrfj-8-Vxctlwgow Gqwqf-4-Rvimflken Beta Globulins PEP Interpretation Cholesterol LDL Cholesterol Direct 03/28/16 03/28/16 03/28/16 05:14 08:41 10:56 WBC RBC Hgb Hct MCV MCH MCHC Plt Count Lymph % (Auto) Posey % (Auto) Lymph # Posey # Baso # Seg Neutrophils % Seg Neuts % (Manual) Lymphocytes % (Manual) Seg Neutrophils # Seg Neutrophils # Man Lymphocytes # (Manual) Monocytes # (Manual) PT INR APTT Heparin Anti-Xa Level POC ABG pH 7.457 H POC ABG pCO2 29.7 L 27.7 L POC ABG pO2 Sodium Potassium Chloride Carbon Dioxide BUN Creatinine Glucose POC Glucose 228 H Calcium Phosphorus Lactate Dehydrogenase Total Creatine Kinase NT-Pro-B Natriuret Pep Albumin Xkjpc-3-Pryowfrbv Hiixx-3-Luhqzzjxc Beta Globulins PEP Interpretation Cholesterol LDL Cholesterol Direct 03/28/16 03/28/16 03/28/16 11:37 13:29 16:22 WBC RBC Hgb Hct MCV MCH MCHC Plt Count Lymph % (Auto) Posey % (Auto) Lymph # Posey # Baso # Seg Neutrophils % Seg Neuts % (Manual) Lymphocytes % (Manual) Seg Neutrophils # Seg Neutrophils # Man Lymphocytes # (Manual) Monocytes # (Manual) PT INR APTT Heparin Anti-Xa Level POC ABG pH POC ABG pCO2 POC ABG pO2 Sodium Potassium Chloride Carbon Dioxide BUN Creatinine Glucose POC Glucose 226 H 200 H Calcium Phosphorus Lactate Dehydrogenase Total Creatine Kinase 356 H NT-Pro-B Natriuret Pep Albumin Buqfx-1-Cjsxnahot Yobrx-1-Ahtsggaac Beta Globulins PEP Interpretation Cholesterol LDL Cholesterol Direct 03/28/16 03/29/16 03/29/16 21:48 04:50 04:50 WBC RBC Hgb 11.5 L Hct 35.3 L MCV 81 L MCH 26 L MCHC Plt Count 97 L Lymph % (Auto) Posey % (Auto) 11.7 H Lymph # Posey # 1.1 H Baso # Seg Neutrophils % Seg Neuts % (Manual) Lymphocytes % (Manual) Seg Neutrophils # Seg Neutrophils # Man Lymphocytes # (Manual) Monocytes # (Manual) PT INR APTT Heparin Anti-Xa Level POC ABG pH POC ABG pCO2 POC ABG pO2 Sodium 136 L D Potassium 3.3 L Chloride Carbon Dioxide 20 L BUN Creatinine Glucose 386 H POC Glucose 188 H Calcium 6.8 L Phosphorus 1.6 L D Lactate Dehydrogenase Total Creatine Kinase NT-Pro-B Natriuret Pep Albumin Irssq-0-Wmyjigmws Oqzhg-1-Zjmkjrdnx Beta Globulins PEP Interpretation Cholesterol LDL Cholesterol Direct 03/29/16 03/29/16 03/29/16 08:10 11:12 16:09 WBC RBC Hgb Hct MCV MCH MCHC Plt Count Lymph % (Auto) Posey % (Auto) Lymph # Posey # Baso # Seg Neutrophils % Seg Neuts % (Manual) Lymphocytes % (Manual) Seg Neutrophils # Seg Neutrophils # Man Lymphocytes # (Manual) Monocytes # (Manual) PT INR APTT Heparin Anti-Xa Level POC ABG pH POC ABG pCO2 POC ABG pO2 Sodium Potassium Chloride Carbon Dioxide BUN Creatinine Glucose POC Glucose 230 H 180 H 46 L Calcium Phosphorus Lactate Dehydrogenase Total Creatine Kinase NT-Pro-B Natriuret Pep Albumin Zaysn-5-Tmqjwmmqz Fhiiw-7-Ueonbrvkj Beta Globulins PEP Interpretation Cholesterol LDL Cholesterol Direct 03/29/16 03/29/16 03/30/16 16:12 18:15 02:53 WBC RBC Hgb Hct MCV MCH MCHC Plt Count Lymph % (Auto) Posey % (Auto) Lymph # Posey # Baso # Seg Neutrophils % Seg Neuts % (Manual) Lymphocytes % (Manual) Seg Neutrophils # Seg Neutrophils # Man Lymphocytes # (Manual) Monocytes # (Manual) PT INR APTT Heparin Anti-Xa Level POC ABG pH POC ABG pCO2 POC ABG pO2 Sodium Potassium Chloride Carbon Dioxide BUN Creatinine Glucose POC Glucose 52 L 118 H 130 H Calcium Phosphorus Lactate Dehydrogenase Total Creatine Kinase NT-Pro-B Natriuret Pep Albumin Iovzj-1-Exxjxygrb Ydnck-6-Wqxseoirw Beta Globulins PEP Interpretation Cholesterol LDL Cholesterol Direct 03/30/16 03/30/16 03/30/16 04:00 04:00 05:29 WBC RBC Hgb Hct MCV 81 L MCH 26 L MCHC Plt Count 116 L Lymph % (Auto) 10.8 L Posey % (Auto) 13.1 H Lymph # 1.0 L Posey # 1.3 H Baso # Seg Neutrophils % 74.2 H Seg Neuts % (Manual) Lymphocytes % (Manual) Seg Neutrophils # Seg Neutrophils # Man Lymphocytes # (Manual) Monocytes # (Manual) PT INR APTT Heparin Anti-Xa Level POC ABG pH 7.522 H POC ABG pCO2 22.7 L POC ABG pO2 137 H Sodium 147 H D Potassium Chloride 115.5 H Carbon Dioxide 20 L BUN Creatinine Glucose 116 H POC Glucose Calcium 7.6 L Phosphorus 2.3 L D Lactate Dehydrogenase Total Creatine Kinase NT-Pro-B Natriuret Pep Albumin Xmcxy-5-Ueofvfizz Bjmoy-7-Oejwyfzxg Beta Globulins PEP Interpretation Cholesterol LDL Cholesterol Direct 03/30/16 03/30/16 03/30/16 05:47 08:05 08:59 WBC RBC Hgb Hct MCV MCH MCHC Plt Count Lymph % (Auto) Posey % (Auto) Lymph # Posey # Baso # Seg Neutrophils % Seg Neuts % (Manual) Lymphocytes % (Manual) Seg Neutrophils # Seg Neutrophils # Man Lymphocytes # (Manual) Monocytes # (Manual) PT INR APTT Heparin Anti-Xa Level POC ABG pH POC ABG pCO2 26.2 L POC ABG pO2 115 H Sodium Potassium Chloride Carbon Dioxide BUN Creatinine Glucose POC Glucose 138 H 171 H Calcium Phosphorus Lactate Dehydrogenase Total Creatine Kinase NT-Pro-B Natriuret Pep Albumin Jruzu-9-[place] Kjrum-9-Douuojean Beta Globulins PEP Interpretation Cholesterol LDL Cholesterol Direct 03/30/16 03/30/16 03/30/16 12:11 12:11 16:39 WBC RBC Hgb Hct MCV MCH MCHC Plt Count Lymph % (Auto) Posey % (Auto) Lymph # Posey # Baso # Seg Neutrophils % Seg Neuts % (Manual) Lymphocytes % (Manual) Seg Neutrophils # Seg Neutrophils # Man Lymphocytes # (Manual) Monocytes # (Manual) PT INR APTT Heparin Anti-Xa Level POC ABG pH 7.476 H POC ABG pCO2 29.0 L POC ABG pO2 Sodium Potassium Chloride Carbon Dioxide BUN Creatinine Glucose POC Glucose 142 H 59 L Calcium Phosphorus Lactate Dehydrogenase Total Creatine Kinase NT-Pro-B Natriuret Pep Albumin Yngvs-1-Tryxvcdpq Nrwoy-4-Mgctscxzj Beta Globulins PEP Interpretation Cholesterol LDL Cholesterol Direct 03/30/16 03/30/16 03/31/16 18:41 21:59 05:02 WBC RBC Hgb Hct MCV MCH MCHC Plt Count Lymph % (Auto) Posey % (Auto) Lymph # Posey # Baso # Seg Neutrophils % Seg Neuts % (Manual) Lymphocytes % (Manual) Seg Neutrophils # Seg Neutrophils # Man Lymphocytes # (Manual) Monocytes # (Manual) PT INR APTT Heparin Anti-Xa Level POC ABG pH 7.519 H POC ABG pCO2 21.8 L POC ABG pO2 142 H Sodium Potassium Chloride Carbon Dioxide BUN Creatinine Glucose POC Glucose 145 H 154 H Calcium Phosphorus Lactate Dehydrogenase Total Creatine Kinase NT-Pro-B Natriuret Pep Albumin Xiksm-1-Ebaxhhydk Poorb-2-Pwthqlwqe Beta Globulins PEP Interpretation Cholesterol LDL Cholesterol Direct 03/31/16 03/31/16 03/31/16 05:15 05:15 05:15 WBC 13.4 H RBC 5.21 H Hgb Hct MCV 81 L MCH 26 L MCHC Plt Count Lymph % (Auto) 9.5 L Posey % (Auto) 14.0 H Lymph # Posey # 1.9 H Baso # Seg Neutrophils % 75.0 H Seg Neuts % (Manual) Lymphocytes % (Manual) Seg Neutrophils # 10.1 H Seg Neutrophils # Man Lymphocytes # (Manual) Monocytes # (Manual) PT INR APTT Heparin Anti-Xa Level POC ABG pH POC ABG pCO2 POC ABG pO2 Sodium Potassium Chloride 108.5 H Carbon Dioxide 19 L BUN Creatinine Glucose 188 H POC Glucose Calcium Phosphorus Lactate Dehydrogenase Total Creatine Kinase NT-Pro-B Natriuret Pep 1089 H Albumin Gxtzw-9-Geyvaaswl Bhfxb-5-Frggkevue Beta Globulins PEP Interpretation Cholesterol LDL Cholesterol Direct 03/31/16 03/31/16 03/31/16 07:23 11:12 15:20 WBC RBC Hgb Hct MCV MCH MCHC Plt Count Lymph % (Auto) Posey % (Auto) Lymph # Posey # Baso # Seg Neutrophils % Seg Neuts % (Manual) Lymphocytes % (Manual) Seg Neutrophils # Seg Neutrophils # Man Lymphocytes # (Manual) Monocytes # (Manual) PT INR APTT Heparin Anti-Xa Level POC ABG pH POC ABG pCO2 POC ABG pO2 Sodium Potassium Chloride Carbon Dioxide BUN Creatinine Glucose POC Glucose 233 H 228 H 208 H Calcium Phosphorus Lactate Dehydrogenase Total Creatine Kinase NT-Pro-B Natriuret Pep Albumin Ehdnv-6-Uybdszwmv Vimil-0-Efkkmybzj Beta Globulins PEP Interpretation Cholesterol LDL Cholesterol Direct 03/31/16 04/01/16 04/01/16 21:27 04:41 05:35 WBC 12.1 H RBC Hgb Hct MCV 81 L MCH 26 L MCHC Plt Count Lymph % (Auto) 8.5 L Posey % (Auto) 14.0 H Lymph # 1.0 L Posey # 1.7 H Baso # Seg Neutrophils % 76.2 H Seg Neuts % (Manual) Lymphocytes % (Manual) Seg Neutrophils # 9.2 H Seg Neutrophils # Man Lymphocytes # (Manual) Monocytes # (Manual) PT INR APTT Heparin Anti-Xa Level POC ABG pH 7.455 H POC ABG pCO2 31.0 L POC ABG pO2 Sodium Potassium Chloride Carbon Dioxide BUN Creatinine Glucose POC Glucose 162 H Calcium Phosphorus Lactate Dehydrogenase Total Creatine Kinase NT-Pro-B Natriuret Pep Albumin Uklyu-4-Winawaeeo Tqgxu-8-Cjtsswdoi Beta Globulins PEP Interpretation Cholesterol LDL Cholesterol Direct 12/01/16 12/01/16 12/01/16 05:35 08:44 12:49 WBC RBC Hgb Hct MCV MCH MCHC Plt Count Lymph % (Auto) Posey % (Auto) Lymph # Posey # Baso # Seg Neutrophils % Seg Neuts % (Manual) Lymphocytes % (Manual) Seg Neutrophils # Seg Neutrophils # Man Lymphocytes # (Manual) Monocytes # (Manual) PT INR APTT Heparin Anti-Xa Level POC ABG pH POC ABG pCO2 POC ABG pO2 Sodium Potassium Chloride Carbon Dioxide BUN Creatinine Glucose 256 H POC Glucose 257 H 279 H Calcium 8.0 L Phosphorus Lactate Dehydrogenase Total Creatine Kinase NT-Pro-B Natriuret Pep 1205 H Albumin Uvbcs-6-Wwidduobs Hahxy-8-Aysikzddg Beta Globulins PEP Interpretation Cholesterol LDL Cholesterol Direct 04/01/16 04/02/16 04/02/16 18:12 00:42 04:17 WBC RBC Hgb Hct MCV MCH MCHC Plt Count Lymph % (Auto) Posey % (Auto) Lymph # Posey # Baso # Seg Neutrophils % Seg Neuts % (Manual) Lymphocytes % (Manual) Seg Neutrophils # Seg Neutrophils # Man Lymphocytes # (Manual) Monocytes # (Manual) PT INR APTT Heparin Anti-Xa Level POC ABG pH 7.582 H POC ABG pCO2 26.8 L POC ABG pO2 Sodium Potassium Chloride Carbon Dioxide BUN Creatinine Glucose POC Glucose 168 H 282 H Calcium Phosphorus Lactate Dehydrogenase Total Creatine Kinase NT-Pro-B Natriuret Pep Albumin Nmptv-1-Cefmnxtau Kunki-6-Ereptsvam Beta Globulins PEP Interpretation Cholesterol LDL Cholesterol Direct 04/02/16 04/02/16 04/02/16 05:00 05:00 06:27 WBC 12.4 H RBC Hgb Hct MCV 81 L MCH 26 L MCHC Plt Count Lymph % (Auto) 6.4 L Posey % (Auto) 13.3 H Lymph # 0.8 L Posey # 1.7 H Baso # Seg Neutrophils % 79.4 H Seg Neuts % (Manual) Lymphocytes % (Manual) Seg Neutrophils # 9.9 H Seg Neutrophils # Man Lymphocytes # (Manual) Monocytes # (Manual) PT INR APTT Heparin Anti-Xa Level POC ABG pH POC ABG pCO2 POC ABG pO2 Sodium 146 H Potassium Chloride Carbon Dioxide BUN Creatinine Glucose 334 H POC Glucose 317 H Calcium 8.0 L Phosphorus Lactate Dehydrogenase Total Creatine Kinase NT-Pro-B Natriuret Pep Albumin Sgvrj-0-Mcbrefqye Ythni-2-Taqbkakma Beta Globulins PEP Interpretation Cholesterol LDL Cholesterol Direct 04/02/16 04/02/16 04/02/16 11:51 13:10 17:24 WBC RBC Hgb Hct MCV MCH MCHC Plt Count Lymph % (Auto) Posey % (Auto) Lymph # Posey # Baso # Seg Neutrophils % Seg Neuts % (Manual) Lymphocytes % (Manual) Seg Neutrophils # Seg Neutrophils # Man Lymphocytes # (Manual) Monocytes # (Manual) PT INR APTT Heparin Anti-Xa Level POC ABG pH 7.518 H POC ABG pCO2 POC ABG pO2 Sodium Potassium Chloride Carbon Dioxide BUN Creatinine Glucose POC Glucose 278 H 195 H Calcium Phosphorus Lactate Dehydrogenase Total Creatine Kinase NT-Pro-B Natriuret Pep Albumin Iyyft-0-Tkdijjgyf Qbwcv-7-Vthmeenej Beta Globulins PEP Interpretation Cholesterol LDL Cholesterol Direct 04/03/16 04/03/16 04/03/16 00:18 04:10 04:10 WBC 14.3 H RBC Hgb Hct MCV 81 L MCH 26 L MCHC Plt Count Lymph % (Auto) 9.0 L Posey % (Auto) 10.7 H Lymph # Posey # 1.5 H Baso # 0.2 H Seg Neutrophils % 78.5 H Seg Neuts % (Manual) Lymphocytes % (Manual) Seg Neutrophils # 11.3 H Seg Neutrophils # Man Lymphocytes # (Manual) Monocytes # (Manual) PT INR APTT Heparin Anti-Xa Level POC ABG pH POC ABG pCO2 POC ABG pO2 Sodium 148 H Potassium Chloride 108.1 H Carbon Dioxide BUN 21 H Creatinine Glucose 227 H POC Glucose 144 H Calcium 8.2 L Phosphorus Lactate Dehydrogenase Total Creatine Kinase NT-Pro-B Natriuret Pep Albumin Qklkk-6-Axiffppkr Zgzgm-9-Rdamytdon Beta Globulins PEP Interpretation Cholesterol LDL Cholesterol Direct 04/03/16 04/03/16 04/04/16 11:14 17:10 04:00 WBC 14.5 H RBC Hgb Hct MCV 81 L MCH 26 L MCHC Plt Count Lymph % (Auto) 7.2 L Posey % (Auto) 7.6 H Lymph # 1.0 L Posey # 1.1 H Baso # Seg Neutrophils % 84.5 H Seg Neuts % (Manual) Lymphocytes % (Manual) Seg Neutrophils # 12.3 H Seg Neutrophils # Man Lymphocytes # (Manual) Monocytes # (Manual) PT INR APTT Heparin Anti-Xa Level POC ABG pH POC ABG pCO2 POC ABG pO2 Sodium Potassium Chloride Carbon Dioxide BUN Creatinine Glucose POC Glucose 267 H 212 H Calcium Phosphorus Lactate Dehydrogenase Total Creatine Kinase NT-Pro-B Natriuret Pep Albumin Aqide-8-Xjeqzponh Awjeq-7-Poyngotyc Beta Globulins PEP Interpretation Cholesterol LDL Cholesterol Direct 04/04/16 04/04/16 04/04/16 05:00 09:55 09:55 WBC RBC Hgb 11.5 L Hct MCV MCH MCHC Plt Count Lymph % (Auto) Posey % (Auto) Lymph # Posey # Baso # Seg Neutrophils % Seg Neuts % (Manual) Lymphocytes % (Manual) Seg Neutrophils # Seg Neutrophils # Man Lymphocytes # (Manual) Monocytes # (Manual) PT INR APTT 42.1 H Heparin Anti-Xa Level POC ABG pH POC ABG pCO2 POC ABG pO2 Sodium 146 H Potassium Chloride Carbon Dioxide BUN 22 H Creatinine Glucose 128 H POC Glucose Calcium Phosphorus Lactate Dehydrogenase Total Creatine Kinase NT-Pro-B Natriuret Pep Albumin Sgugv-7-Xzeiitvro Vfkvc-3-Ielxmsdxe Beta Globulins PEP Interpretation Cholesterol LDL Cholesterol Direct 04/04/16 04/04/16 04/04/16 11:45 17:49 17:55 WBC RBC Hgb Hct MCV MCH MCHC Plt Count Lymph % (Auto) Posey % (Auto) Lymph # Posey # Baso # Seg Neutrophils % Seg Neuts % (Manual) Lymphocytes % (Manual) Seg Neutrophils # Seg Neutrophils # Man Lymphocytes # (Manual) Monocytes # (Manual) PT INR APTT Heparin Anti-Xa Level 1.19 H POC ABG pH POC ABG pCO2 POC ABG pO2 Sodium Potassium Chloride Carbon Dioxide BUN Creatinine Glucose POC Glucose 231 H 186 H Calcium Phosphorus Lactate Dehydrogenase Total Creatine Kinase NT-Pro-B Natriuret Pep Albumin Jxlit-9-Cychtcbhz Tkqck-4-Mamtcemat Beta Globulins PEP Interpretation Cholesterol LDL Cholesterol Direct 04/05/16 04/05/16 04/05/16 00:35 05:32 05:42 WBC RBC Hgb Hct MCV MCH MCHC Plt Count Lymph % (Auto) [place] % (Auto) Lymph # [place] # Baso # Seg Neutrophils % Seg Neuts % (Manual) Lymphocytes % (Manual) Seg Neutrophils # Seg Neutrophils # Man Lymphocytes # (Manual) Monocytes # (Manual) PT INR APTT Heparin Anti-Xa Level POC ABG pH 7.491 H POC ABG pCO2 POC ABG pO2 Sodium Potassium Chloride Carbon Dioxide BUN Creatinine Glucose POC Glucose 192 H 242 H Calcium Phosphorus Lactate Dehydrogenase Total Creatine Kinase NT-Pro-B Natriuret Pep Albumin Djocl-2-Wyqyuggwv Ocfvr-9-Xoawfobcj Beta Globulins PEP Interpretation Cholesterol LDL Cholesterol Direct 04/05/16 04/05/16 04/05/16 06:20 06:20 12:19 WBC 13.9 H RBC Hgb 11.6 L Hct MCV 81 L MCH 26 L MCHC Plt Count Lymph % (Auto) 9.6 L [place] % (Auto) 8.7 H Lymph # [place] # 1.2 H Baso # Seg Neutrophils % 80.9 H Seg Neuts % (Manual) Lymphocytes % (Manual) Seg Neutrophils # 11.3 H Seg Neutrophils # Man Lymphocytes # (Manual) Monocytes # (Manual) PT INR APTT Heparin Anti-Xa Level POC ABG pH POC ABG pCO2 POC ABG pO2 Sodium 148 H Potassium Chloride Carbon Dioxide BUN 23 H Creatinine Glucose 242 H POC Glucose 187 H Calcium Phosphorus Lactate Dehydrogenase Total Creatine Kinase NT-Pro-B Natriuret Pep Albumin Varst-5-Elcnpfjoe Mpnbr-1-Gqkadcuzi Beta Globulins PEP Interpretation Cholesterol LDL Cholesterol Direct 04/05/16 04/05/16 04/06/16 17:10 23:45 05:23 WBC 13.0 H RBC Hgb Hct MCV 82 L MCH 26 L MCHC 31 L Plt Count Lymph % (Auto) 6.7 L [place] % (Auto) 8.3 H Lymph # 0.9 L [place] # 1.1 H Baso # Seg Neutrophils % 84.6 H Seg Neuts % (Manual) Lymphocytes % (Manual) Seg Neutrophils # 11.0 H Seg Neutrophils # Man Lymphocytes # (Manual) Monocytes # (Manual) PT INR APTT Heparin Anti-Xa Level POC ABG pH POC ABG pCO2 POC ABG pO2 Sodium Potassium Chloride Carbon Dioxide BUN Creatinine Glucose POC Glucose 169 H 202 H Calcium Phosphorus Lactate Dehydrogenase Total Creatine Kinase NT-Pro-B Natriuret Pep Albumin Rejji-7-Uygixffqq Vgnrd-7-Ctuhnpudo Beta Globulins PEP Interpretation Cholesterol LDL Cholesterol Direct 04/06/16 04/06/16 04/06/16 05:23 05:23 06:11 WBC RBC Hgb Hct MCV MCH MCHC Plt Count Lymph % (Auto) [place] % (Auto) Lymph # [place] # Baso # Seg Neutrophils % Seg Neuts % (Manual) Lymphocytes % (Manual) Seg Neutrophils # Seg Neutrophils # Man Lymphocytes # (Manual) Monocytes # (Manual) PT INR APTT Heparin Anti-Xa Level 0.21 L POC ABG pH POC ABG pCO2 POC ABG pO2 Sodium 153 H Potassium Chloride 111.3 H Carbon Dioxide BUN 22 H Creatinine Glucose 62 L POC Glucose 56 L Calcium Phosphorus Lactate Dehydrogenase Total Creatine Kinase NT-Pro-B Natriuret Pep Albumin Jggzz-6-Qlnpqkcin Okuec-6-Wpubhgtof Beta Globulins PEP Interpretation Cholesterol LDL Cholesterol Direct 04/06/16 04/06/16 04/06/16 06:52 11:36 14:58 WBC RBC Hgb Hct MCV MCH MCHC Plt Count Lymph % (Auto) [place] % (Auto) Lymph # [place] # Baso # Seg Neutrophils % Seg Neuts % (Manual) Lymphocytes % (Manual) Seg Neutrophils # Seg Neutrophils # Man Lymphocytes # (Manual) Monocytes # (Manual) PT INR APTT Heparin Anti-Xa Level POC ABG pH POC ABG pCO2 POC ABG pO2 Sodium Potassium Chloride Carbon Dioxide BUN Creatinine Glucose POC Glucose 206 H 139 H 147 H Calcium Phosphorus Lactate Dehydrogenase Total Creatine Kinase NT-Pro-B Natriuret Pep Albumin Plkkm-1-Elipcegxh Dahvh-4-Fdhjwyeto Beta Globulins PEP Interpretation Cholesterol LDL Cholesterol Direct 04/06/16 04/06/16 04/06/16 16:03 21:18 23:53 WBC RBC Hgb Hct MCV MCH MCHC Plt Count Lymph % (Auto) [place] % (Auto) Lymph # [place] # Baso # Seg Neutrophils % Seg Neuts % (Manual) Lymphocytes % (Manual) Seg Neutrophils # Seg Neutrophils # Man Lymphocytes # (Manual) Monocytes # (Manual) PT INR APTT Heparin Anti-Xa Level POC ABG pH POC ABG pCO2 POC ABG pO2 Sodium Potassium Chloride Carbon Dioxide BUN Creatinine Glucose POC Glucose 154 H 293 H 301 H Calcium Phosphorus Lactate Dehydrogenase Total Creatine Kinase NT-Pro-B Natriuret Pep Albumin Ixvvj-9-Zrikeirza Sdwmv-7-Spczhldyz Beta Globulins PEP Interpretation Cholesterol LDL Cholesterol Direct 04/07/16 04/07/16 04/07/16 02:30 05:11 05:11 WBC 12.5 H RBC Hgb 11.5 L Hct MCV 82 L MCH 26 L MCHC 31 L Plt Count Lymph % (Auto) [place] % (Auto) Lymph # [place] # Baso # Seg Neutrophils % Seg Neuts % (Manual) Lymphocytes % (Manual) Seg Neutrophils # Seg Neutrophils # Man Lymphocytes # (Manual) Monocytes # (Manual) PT INR APTT Heparin Anti-Xa Level 0.11 L POC ABG pH POC ABG pCO2 POC ABG pO2 Sodium 150 H Potassium Chloride 109.5 H Carbon Dioxide BUN 28 H Creatinine Glucose 264 H POC Glucose Calcium Phosphorus Lactate Dehydrogenase Total Creatine Kinase NT-Pro-B Natriuret Pep Albumin Lxjds-4-Pdzlwocde Vxkyw-1-Dmcnnpkvu Beta Globulins PEP Interpretation Cholesterol LDL Cholesterol Direct 04/07/16 04/07/16 04/07/16 06:46 10:18 11:50 WBC RBC Hgb Hct MCV MCH MCHC Plt Count Lymph % (Auto) [place] % (Auto) Lymph # [place] # Baso # Seg Neutrophils % Seg Neuts % (Manual) Lymphocytes % (Manual) Seg Neutrophils # Seg Neutrophils # Man Lymphocytes # (Manual) Monocytes # (Manual) PT 15.1 H INR 1.20 H APTT Heparin Anti-Xa Level POC ABG pH POC ABG pCO2 POC ABG pO2 Sodium Potassium Chloride Carbon Dioxide BUN Creatinine Glucose POC Glucose 259 H 288 H Calcium Phosphorus Lactate Dehydrogenase Total Creatine Kinase NT-Pro-B Natriuret Pep Albumin Dyjwx-2-Ixjlqzqef Tunge-1-Klaocxmau Beta Globulins PEP Interpretation Cholesterol LDL Cholesterol Direct 04/07/16 04/08/16 04/08/16 17:58 01:25 06:49 WBC RBC Hgb Hct MCV MCH MCHC Plt Count Lymph % (Auto) [place] % (Auto) Lymph # [place] # Baso # Seg Neutrophils % Seg Neuts % (Manual) Lymphocytes % (Manual) Seg Neutrophils # Seg Neutrophils # Man Lymphocytes # (Manual) Monocytes # (Manual) PT INR APTT Heparin Anti-Xa Level POC ABG pH POC ABG pCO2 POC ABG pO2 Sodium 156 H Potassium Chloride 114.7 H Carbon Dioxide BUN 33 H Creatinine Glucose 169 H POC Glucose 330 H 146 H Calcium Phosphorus Lactate Dehydrogenase Total Creatine Kinase NT-Pro-B Natriuret Pep Albumin Fsgrm-8-Ruxvptlkr Dnbul-4-Anjkqjufi Beta Globulins PEP Interpretation Cholesterol LDL Cholesterol Direct 04/08/16 04/08/16 04/08/16 07:34 10:28 10:28 WBC RBC Hgb Hct MCV MCH MCHC Plt Count Lymph % (Auto) [place] % (Auto) Lymph # [place] # Baso # Seg Neutrophils % Seg Neuts % (Manual) Lymphocytes % (Manual) Seg Neutrophils # Seg Neutrophils # Man Lymphocytes # (Manual) Monocytes # (Manual) PT 15.5 H INR 1.24 H APTT Heparin Anti-Xa Level 0.24 L POC ABG pH POC ABG pCO2 POC ABG pO2 Sodium Potassium Chloride Carbon Dioxide BUN Creatinine Glucose POC Glucose 232 H Calcium Phosphorus Lactate Dehydrogenase Total Creatine Kinase NT-Pro-B Natriuret Pep Albumin Oczdq-7-Mljazaxms Xxtrp-8-Zxtdfsjyw Beta Globulins PEP Interpretation Cholesterol LDL Cholesterol Direct 04/08/16 04/08/16 04/09/16 11:36 15:38 00:01 WBC RBC Hgb Hct MCV MCH MCHC Plt Count Lymph % (Auto) [place] % (Auto) Lymph # [place] # Baso # Seg Neutrophils % Seg Neuts % (Manual) Lymphocytes % (Manual) Seg Neutrophils # Seg Neutrophils # Man Lymphocytes # (Manual) Monocytes # (Manual) PT INR APTT Heparin Anti-Xa Level POC ABG pH POC ABG pCO2 POC ABG pO2 Sodium Potassium Chloride Carbon Dioxide BUN Creatinine Glucose POC Glucose 193 H 163 H 180 H Calcium Phosphorus Lactate Dehydrogenase Total Creatine Kinase NT-Pro-B Natriuret Pep Albumin Hnkxr-4-Pqsukaoht Xunyh-6-Merozuxbt Beta Globulins PEP Interpretation Cholesterol LDL Cholesterol Direct 04/09/16 04/09/16 04/09/16 06:17 06:42 06:42 WBC RBC Hgb Hct MCV MCH MCHC Plt Count Lymph % (Auto) [place] % (Auto) Lymph # [place] # Baso # Seg Neutrophils % Seg Neuts % (Manual) Lymphocytes % (Manual) Seg Neutrophils # Seg Neutrophils # Man Lymphocytes # (Manual) Monocytes # (Manual) PT 17.4 H INR 1.43 H APTT Heparin Anti-Xa Level POC ABG pH POC ABG pCO2 POC ABG pO2 Sodium 153 H Potassium Chloride 113.2 H Carbon Dioxide BUN 29 H Creatinine Glucose 301 H POC Glucose 249 H Calcium 8.3 L Phosphorus Lactate Dehydrogenase Total Creatine Kinase NT-Pro-B Natriuret Pep Albumin Octft-5-Azokqmmpo Ljbfu-3-Zwunarbdj Beta Globulins PEP Interpretation Cholesterol LDL Cholesterol Direct 04/09/16 04/09/16 04/09/16 07:37 11:26 15:45 WBC RBC Hgb Hct MCV MCH MCHC Plt Count Lymph % (Auto) [place] % (Auto) Lymph # [place] # Baso # Seg Neutrophils % Seg Neuts % (Manual) Lymphocytes % (Manual) Seg Neutrophils # Seg Neutrophils # Man Lymphocytes # (Manual) Monocytes # (Manual) PT INR APTT Heparin Anti-Xa Level POC ABG pH POC ABG pCO2 POC ABG pO2 Sodium Potassium Chloride Carbon Dioxide BUN Creatinine Glucose POC Glucose 283 H 306 H 354 H Calcium Phosphorus Lactate Dehydrogenase Total Creatine Kinase NT-Pro-B Natriuret Pep Albumin Wpyjg-1-Jlizcakwz Wttkn-4-Kxyprqdpo Beta Globulins PEP Interpretation Cholesterol LDL Cholesterol Direct 04/10/16 04/10/16 04/10/16 00:53 07:34 07:34 WBC RBC Hgb 11.3 L Hct MCV MCH MCHC Plt Count Lymph % (Auto) [place] % (Auto) Lymph # [place] # Baso # Seg Neutrophils % Seg Neuts % (Manual) Lymphocytes % (Manual) Seg Neutrophils # Seg Neutrophils # Man Lymphocytes # (Manual) Monocytes # (Manual) PT 17.3 H INR 1.42 H APTT Heparin Anti-Xa Level POC ABG pH POC ABG pCO2 POC ABG pO2 Sodium Potassium Chloride Carbon Dioxide BUN Creatinine Glucose POC Glucose 323 H Calcium Phosphorus Lactate Dehydrogenase Total Creatine Kinase NT-Pro-B Natriuret Pep Albumin Hkynz-2-Ahotvdxtf Xtgdh-6-Dbplrrxzc Beta Globulins PEP Interpretation Cholesterol LDL Cholesterol Direct 04/10/16 07:34 WBC RBC Hgb Hct MCV MCH MCHC Plt Count Lymph % (Auto) [place] % (Auto) Lymph # [place] # Baso # Seg Neutrophils % Seg Neuts % (Manual) Lymphocytes % (Manual) Seg Neutrophils # Seg Neutrophils # Man Lymphocytes # (Manual) Monocytes # (Manual) PT INR APTT Heparin Anti-Xa Level POC ABG pH POC ABG pCO2 POC ABG pO2 Sodium 158 H Potassium Chloride 118.6 H Carbon Dioxide BUN 30 H Creatinine Glucose 330 H POC Glucose Calcium 8.3 L Phosphorus Lactate Dehydrogenase Total Creatine Kinase NT-Pro-B Natriuret Pep Albumin Iqwfm-6-Apwpqtetk Sjmzu-5-Miwxypgcr Beta Globulins PEP Interpretation Cholesterol LDL Cholesterol Direct
[2016-04-10] MEDS: COUMADIN PO SCH (18:08)
[2016-04-10] MEDS: HEPARIN/ 0.45% NACL-25,000 UNIT/500 ML 500 ML IV SCH (22:39)
[2016-04-11] MEDS: NOVOLOG SUB-Q SCH ×4 (01:24→18:52)
[2016-04-11 08:07] LABS: INR 1.53 (0.87-1.13)
[2016-04-11 08:20] LABS: Anion Gap 16 mmol/L; BUN/Creatinine Ratio 17.69; Blood Urea Nitrogen 23 mg/dL (9-20); Calcium 8.6 mg/dL (8.4-10.2); Carbon Dioxide 28 mmol/L (22-30); Chloride 114.5 mmol/L (98-107); Glucose 157 mg/dL (75-100); Potassium 3.6 mmol/L (3.6-5.0); Sodium 155 mmol/L (137-145)
[2016-04-11] MEDS: PEPCID PO SCH ×2 (09:14→22:45)
[2016-04-11] MEDS: NORMODYNE PO SCH ×4 (09:15→23:00)
[2016-04-11] MEDS: PROCARDIA XL PO SCH (09:26)
[2016-04-11] MEDS: ZESTRIL PO SCH ×2 (09:27→22:55)
[2016-04-11] MEDS: CORDARONE PO SCH (09:27)
[2016-04-11] MEDS: ASPIRIN PO SCH (09:28)
[2016-04-11] MEDS: KEPPRA PO SCH ×2 (09:28→22:45)
[2016-04-11] MEDS: LEVEMIR SUB-Q SCH (09:31)
--- NOTE | 2016-04-11 09:32 | Progress Note ---
Assessment and Plan Assessment and plan: Acute respiratory failure. Was initially intubated, now extubated, transferred from ICU , now in telemetry. Pulmonology following Acute ischemic stroke. CT scan revealed acute ischemic infarct in the right cerebellum. MRI reveals subacute infarct in the right cerebellar hemisphere with associated edema and mass effect as previously described. Patient also with multiple areas of acute infarct in the left occipital and frontal lobes that are most likely embolic. LIZZIE done today. No thrombus but decreased flow. Cardiology recommends anticoagulation with Coumadin. INR 1.42 today. Hypernatremia. Sodium slightly decreased to 155. Continue daily BMP. Continue iv fluid 5% Dextrose and free water. Encephalopathy. EEG normal. Accelerated hypertension. Blood pressure improving . CAD-stable, continue current beta em, statin Diabetes mellitus type 2. This is uncontrolled. Increase Levemir to 40 units every morning . History of aortic dissection status post repair. History of prosthetic aortic valve replacement. Echo with normal function on 2015. UTI with Group B strep. Completed ceftriaxone Seizure Disorder. Continue Keppra DVT prophylaxis-On heparin drip, coumadin. GI prophylaxis-Pepcid Disposition:. Discussed with case management. Patient needs half-way facility placement. History Interval history: patient with stroke, encephalopathy, seizure disorder still lethargic, no fever Hospitalist Physical - Physical exam Narrative exam: Gen: Not in acute distress, ill looking HEENT: Normocephalic, atraumatic Neck: supple no JVD Lungs clear to auscultation bilaterally, no crackles or wheeze Heart S1-S2 regular, no murmurs, rubs or gallops Abdomen:soft, Nontender, non distended,PEG tube present, normal bowel sounds Extremities :no edema, no clubbing or cyanosis Neuro: lethargic,aphasia,dysphagia - Constitutional Vitals: Temp Pulse Resp BP Pulse Ox 97.3 F L 85 22 130/90 96 04/11/16 07:28 04/11/16 07:28 04/11/16 07:28 04/11/16 07:28 04/11/16 07:28 General appearance: Present: no acute distress Results - Labs CBC & Chem 7: 04/10/16 07:34 04/11/16 07:47 Labs: Laboratory Last Values WBC 12.5 K/mm3 (4.5-11.0) H 04/07/16 05:11 RBC 4.44 M/mm3 (3.65-5.03) 04/07/16 05:11 Hgb 11.3 gm/dl (11.8-15.2) L 04/10/16 07:34 Hct 36.7 % (35.5-45.6) 04/10/16 07:34 MCV 82 fl (84-94) L 04/07/16 05:11 MCH 26 pg (28-32) L 04/07/16 05:11 MCHC 31 % (32-34) L 04/07/16 05:11 RDW 14.7 % (13.2-15.2) 04/07/16 05:11 Plt Count 312 K/mm3 (140-440) 04/10/16 07:34 Lymph % (Auto) 6.7 % (13.4-35.0) L 04/06/16 05:23 [place] % (Auto) 8.3 % (0.0-7.3) H 04/06/16 05:23 Eos % (Auto) 0.1 % (0.0-4.3) 04/06/16 05:23 Baso % (Auto) 0.3 % (0.0-1.8) 04/06/16 05:23 Lymph # 0.9 K/mm3 (1.2-5.4) L 04/06/16 05:23 [place] # 1.1 K/mm3 (0.0-0.8) H 04/06/16 05:23 Eos # 0.0 K/mm3 (0.0-0.4) 04/06/16 05:23 Baso # 0.0 K/mm3 (0.0-0.1) 04/06/16 05:23 Add Manual Diff Complete 03/25/16 05:56 Total Counted 100 03/25/16 05:56 Seg Neutrophils % 84.6 % (40.0-70.0) H 04/06/16 05:23 Seg Neuts % (Manual) 91.0 % (40.0-70.0) H 03/25/16 05:56 Band Neutrophils % 1.0 % 03/25/16 05:56 Lymphocytes % (Manual) 4.0 % (13.4-35.0) L 03/25/16 05:56 Reactive Lymphs % (Man) 0 % 03/25/16 05:56 Monocytes % (Manual) 4.0 % (0.0-7.3) 03/25/16 05:56 Eosinophils % (Manual) 0 % (0.0-4.3) 03/25/16 05:56 Basophils % (Manual) 0 % (0.0-1.8) 03/25/16 05:56 Metamyelocytes % 0 % 03/25/16 05:56 Myelocytes % 0 % 03/25/16 05:56 Promyelocytes % 0 % 03/25/16 05:56 Blast Cells % 0 % 03/25/16 05:56 Nucleated RBC % Not Reportable 03/25/16 05:56 Seg Neutrophils # 11.0 K/mm3 (1.8-7.7) H 04/06/16 05:23 Seg Neutrophils # Man 19.4 K/mm3 (1.8-7.7) H 03/25/16 05:56 Band Neutrophils # 0.2 K/mm3 03/25/16 05:56 Lymphocytes # (Manual) 0.9 K/mm3 (1.2-5.4) L 03/25/16 05:56 Abs React Lymphs (Man) 0.0 K/mm3 03/25/16 05:56 Monocytes # (Manual) 0.9 K/mm3 (0.0-0.8) H 03/25/16 05:56 Eosinophils # (Manual) 0.0 K/mm3 (0.0-0.4) 03/25/16 05:56 Basophils # (Manual) 0.0 K/mm3 (0.0-0.1) 03/25/16 05:56 Metamyelocytes # 0.0 K/mm3 03/25/16 05:56 Myelocytes # 0.0 K/mm3 03/25/16 05:56 Promyelocytes # 0.0 K/mm3 03/25/16 05:56 Blast Cells # 0.0 K/mm3 03/25/16 05:56 WBC Morphology Not Reportable 03/25/16 05:56 Hypersegmented Neuts Not Reportable 03/25/16 05:56 Hyposegmented Neuts Not Reportable 03/25/16 05:56 Hypogranular Neuts Not Reportable 03/25/16 05:56 Smudge Cells Not Reportable 03/25/16 05:56 Toxic Granulation Not Reportable 03/25/16 05:56 Toxic Vacuolation Not Reportable 03/25/16 05:56 Dohle Bodies Not Reportable 03/25/16 05:56 Pelger-Huet Anomaly Not Reportable 03/25/16 05:56 Corina Rods Not Reportable 03/25/16 05:56 Platelet Estimate Appears normal 03/25/16 05:56 Clumped Platelets Not Reportable 03/25/16 05:56 Plt Clumps, EDTA Not Reportable 03/25/16 05:56 Large Platelets Not Reportable 03/25/16 05:56 Giant Platelets Not Reportable 03/25/16 05:56 Platelet Satelliting Not Reportable 03/25/16 05:56 Plt Morphology Comment Not Reportable 03/25/16 05:56 RBC Morphology Normal 03/25/16 05:56 Dimorphic RBCs Not Reportable 03/25/16 05:56 Polychromasia Not Reportable 03/25/16 05:56 Hypochromasia Not Reportable 03/25/16 05:56 Poikilocytosis Not Reportable 03/25/16 05:56 Anisocytosis Not Reportable 03/25/16 05:56 Microcytosis Not Reportable 03/25/16 05:56 Macrocytosis Not Reportable 03/25/16 05:56 Spherocytes Not Reportable 03/25/16 05:56 Pappenheimer Bodies Not Reportable 03/25/16 05:56 Sickle Cells Not Reportable 03/25/16 05:56 Target Cells Not Reportable 03/25/16 05:56 Tear Drop Cells Not Reportable 03/25/16 05:56 Ovalocytes Not Reportable 03/25/16 05:56 Helmet Cells Not Reportable 03/25/16 05:56 [place] Bodies Not Reportable 03/25/16 05:56 [place] Rings Not Reportable 03/25/16 05:56 Tuan Cells Not Reportable 03/25/16 05:56 Bite Cells Not Reportable 03/25/16 05:56 Crenated Cell Not Reportable 03/25/16 05:56 Elliptocytes Not Reportable 03/25/16 05:56 Acanthocytes (Spur) Not Reportable 03/25/16 05:56 Rouleaux Not Reportable 03/25/16 05:56 Hemoglobin C Crystals Not Reportable 03/25/16 05:56 Schistocytes Not Reportable 03/25/16 05:56 Malaria parasites Not Reportable 03/25/16 05:56 [place] Bodies Not Reportable 03/25/16 05:56 Hem Pathologist Commnt No 03/25/16 05:56 PT 18.4 Sec. (12.2-14.9) H 04/11/16 07:47 INR 1.53 (0.87-1.13) H 04/11/16 07:47 APTT 42.1 Sec. (24.2-36.6) H 04/04/16 09:55 Heparin Anti-Xa Level 0.46 U.I./ml (0.3-0.7) 04/10/16 18:02 POC ABG pH 7.491 (7.35-7.45) H 04/05/16 05:32 POC ABG pCO2 42.3 (35-45) 04/05/16 05:32 POC ABG pO2 90 (80-105) 04/05/16 05:32 POC ABG HCO3 32.3 04/05/16 05:32 POC ABG Total CO2 34 04/05/16 05:32 POC ABG O2 Sat 98 04/05/16 05:32 POC ABG Base Excess 9 04/05/16 05:32 VBG pH 7.418 (7.320-7.420) 03/24/16 14:00 FiO2 28 % 04/05/16 05:32 Sodium 155 mmol/L (137-145) H 04/11/16 07:47 Potassium 3.6 mmol/L (3.6-5.0) 04/11/16 07:47 Chloride 114.5 mmol/L (98-107) H 04/11/16 07:47 Carbon Dioxide 28 mmol/L (22-30) 04/11/16 07:47 Anion Gap 16 mmol/L 04/11/16 07:47 BUN 23 mg/dL (9-20) H 04/11/16 07:47 Creatinine 1.3 mg/dL (0.8-1.5) 04/11/16 07:47 Estimated GFR > 60 ml/min 04/11/16 07:47 BUN/Creatinine Ratio 17.69 % 04/11/16 07:47 Glucose 157 mg/dL (75-100) H 04/11/16 07:47 POC Glucose 162 (70-105) H 04/11/16 00:29 Hemoglobin A1c 9.6 % (4-6) H 03/24/16 14:00 Lactic Acid 2.8 mmol/L (0.7-2.1) H 03/24/16 15:26 Calcium 8.6 mg/dL (8.4-10.2) 04/11/16 07:47 Phosphorus 2.3 mg/dL (2.5-4.5) L D 03/30/16 04:00 Magnesium 1.9 mg/dL (1.7-2.3) 03/30/16 04:00 Total Bilirubin 0.3 mg/dL (0.1-1.2) 03/24/16 14:00 AST 24 units/L (5-40) 03/24/16 14:00 ALT 38 units/L (7-56) 03/24/16 14:00 Alkaline Phosphatase 77 units/L (35-129) 03/24/16 14:00 Lactate Dehydrogenase 460 units/L (91-180) H 03/25/16 05:56 Total Creatine Kinase 356 units/L (55-170) H 03/28/16 13:29 Troponin T < 0.010 ng/mL (0.00-0.029) 03/28/16 13:29 NT-Pro-B Natriuret Pep 897.9 pg/mL (0-900) 04/03/16 04:10 Serum Total Protein 7.1 g/dL (6.1-8.1) 03/25/16 13:00 Total Protein 7.4 g/dL (6.3-8.2) 03/24/16 14:00 Albumin See scanned report 03/31/16 12:20 Albumin/Globulin Ratio 0.9 % 03/24/16 14:00 Hvwut-4-Cnkdpmxnh See scanned report 03/31/16 12:20 Hbxlr-5-Ggcfgrgeb See scanned report 03/31/16 12:20 Beta Globulins See scanned report 03/31/16 12:20 Hbxc-7-Luikntjnihikf 2.46 mg/L (<=2.51) 03/25/16 13:00 Gamma Globulins See scanned report 03/31/16 12:20 Abnorm Protein Band 1 see below (()) 03/25/16 13:00 PEP Interpretation See scanned report 03/31/16 12:20 Triglycerides 88 mg/dL (2-149) 03/24/16 17:58 Cholesterol 221 mg/dL (50-199) H 03/24/16 17:58 LDL Cholesterol Direct 146 mg/dL (50-130) H 03/24/16 17:58 HDL Cholesterol 58 mg/dL (40-59) 03/24/16 17:58 Cholesterol/HDL Ratio 3.81 % 03/24/16 17:58 Urine Color Yellow (Yellow) 03/24/16 14:27 Urine Turbidity Clear (Clear) 03/24/16 14:27 Urine pH 5.0 (5.0-7.0) 03/24/16 14:27 Ur Specific [place] 1.017 (1.003-1.030) 03/24/16 14:27 Urine Protein <15 mg/dl mg/dL (Negative) 03/24/16 14:27 Urine Glucose (UA) >=500 mg/dL (Negative) 03/24/16 14:27 Urine Ketones Neg mg/dL (Negative) 03/24/16 14:27 Urine Blood Sm (Negative) 03/24/16 14:27 Urine Nitrite Neg (Negative) 03/24/16 14:27 Urine Bilirubin Neg (Negative) 03/24/16 14:27 Urine Urobilinogen < 2.0 mg/dL (<2.0) 03/24/16 14:27 Ur Leukocyte Esterase Neg (Negative) 03/24/16 14:27 Urine WBC (Auto) 2.0 /HPF (0.0-6.0) 03/24/16 14:27 Urine RBC (Auto) < 1.0 /HPF (0.0-6.0) 03/24/16 14:27 U Epithel Cells (Auto) 4.0 /HPF (0-13.0) 03/24/16 14:27 Hyaline Casts 1 /LPF 03/24/16 14:27 Urine Mucus Few /HPF 03/24/16 14:27 Ur Random Creatinine See scanned report 03/31/16 12:20 U Random Total Protein See scanned report 03/31/16 12:20 Protein/Creatinin Ratio See scanned report 03/31/16 12:20 U Abnormal Prot Band 1 See scanned report 03/31/16 12:20 U Abnormal Prot Band 2 See scanned report 03/31/16 12:20 U Abnormal Prot Band 3 See scanned report 03/31/16 12:20 Ketones 1.0 mg/dL (0.2-2.8) 03/24/16 14:00
[2016-04-11] MEDS: COUMADIN PO SCH (17:54)
[2016-04-11] MEDS: HEPARIN/ 0.45% NACL-25,000 UNIT/500 ML 500 ML IV SCH (20:50)
[2016-04-12] MEDS: NOVOLOG SUB-Q SCH ×5 (01:02→23:50)
[2016-04-12 06:17] LABS: INR 1.98 (0.87-1.13)
[2016-04-12 06:22] LABS: Anion Gap 15 mmol/L; BUN/Creatinine Ratio 19.16; Blood Urea Nitrogen 23 mg/dL (9-20); Calcium 8.5 mg/dL (8.4-10.2); Carbon Dioxide 29 mmol/L (22-30); Chloride 115.4 mmol/L (98-107); Glucose 143 mg/dL (75-100); Potassium 3.7 mmol/L (3.6-5.0); Sodium 156 mmol/L (137-145)
--- NOTE | 2016-04-12 06:46 | Progress Note ---
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 Recommend: Continue coumadin, INR not yet therapeutic. Pt will likely need PEG, consider placing prior to INR becoming therapeutic Statin, VTE prophylaxis PT/OT/ST as tolerated. Placement underway. Continue care for his medical issues as you are doing. Call with questions. Subjective Date of service: 04/12/16 Principal diagnosis: CVA Interval history: Pt seen and examined. Appears to be waiting on placement. Has started coumadin , INR 1.53 last checked. Objective - Vital Sign Vital Signs - 12hr 04/11/16 04/11/16 04/11/16 20:00 22:00 22:55 Temperature 97.9 F Pulse Rate 86 Pulse Rate [ 80 From Monitor] Respiratory 18 18 Rate Blood Pressure 136/86 Blood Pressure 130/92 [Left Arm] O2 Sat by Pulse 96 96 Oximetry 04/11/16 04/12/16 04/12/16 23:00 00:00 04:00 Temperature 98.2 F 98.2 F Pulse Rate 86 Pulse Rate [ 82 85 From Monitor] Respiratory 18 18 Rate Blood Pressure 140/98 Blood Pressure 142/101 144/92 [Left Arm] O2 Sat by Pulse 97 97 Oximetry 04/12/16 05:00 Temperature Pulse Rate 82 Pulse Rate [ From Monitor] Respiratory Rate Blood Pressure Blood Pressure [Left Arm] O2 Sat by Pulse Oximetry - General Apperance Constitutional: comfortable - Respiratory Respiratory: lungs clear - Cardiovascular Cardiovascular: normal S1, normal S2 - Neurologic Cranial nerve examination: facial droop Motor examination - right side: 2/5: biceps, triceps, wrist flexion, wrist extension, residency coordinator, hip flexors, knee extensors, dorsiflexion, toe extension (EHL) , plantarflexion Motor examination - left side: 4/5: biceps, triceps, wrist flexion, wrist extension, residency coordinator, hip flexors, knee extensors, dorsiflexion, toe extension (EHL) , plantarflexion Detailed sensory examination: light touch Reflexes: 0: ankle, bicep, knee, tricep - Laboratory Findings CBC and BMP: 04/12/16 04:54 04/12/16 04:54 Abnormal Lab Findings: Abnormal Labs 03/24/16 03/24/16 03/24/16 17:58 20:25 23:23 WBC RBC Hgb Hct MCV MCH MCHC Plt Count Lymph % (Auto) [place] % (Auto) Lymph # [place] # Baso # Seg Neutrophils % Seg Neuts % (Manual) Lymphocytes % (Manual) Seg Neutrophils # Seg Neutrophils # Man Lymphocytes # (Manual) Monocytes # (Manual) PT INR APTT Heparin Anti-Xa Level POC ABG pH POC ABG pCO2 POC ABG pO2 Sodium 169 H* Potassium 3.5 L Chloride 130.3 H Carbon Dioxide BUN 28 H Creatinine 1.8 H Glucose POC Glucose 112 H Calcium Phosphorus Lactate Dehydrogenase Total Creatine Kinase NT-Pro-B Natriuret Pep Albumin Xruua-2-Fswrdsyef Suqrw-7-Fwrvbwrkb Beta Globulins PEP Interpretation Cholesterol 221 H LDL Cholesterol Direct 146 H 03/25/16 03/25/16 03/25/16 05:56 05:56 05:56 WBC 21.3 H RBC 6.32 H Hgb 16.7 H Hct 52.7 H MCV 83 L MCH 27 L MCHC Plt Count Lymph % (Auto) [place] % (Auto) Lymph # [place] # Baso # Seg Neutrophils % Seg Neuts % (Manual) 91.0 H Lymphocytes % (Manual) 4.0 L Seg Neutrophils # Seg Neutrophils # Man 19.4 H Lymphocytes # (Manual) 0.9 L Monocytes # (Manual) 0.9 H PT INR APTT Heparin Anti-Xa Level POC ABG pH POC ABG pCO2 POC ABG pO2 Sodium 172 H* Potassium 3.5 L Chloride 130.4 H Carbon Dioxide BUN 29 H Creatinine 1.8 H Glucose 187 H POC Glucose Calcium Phosphorus Lactate Dehydrogenase 460 H Total Creatine Kinase NT-Pro-B Natriuret Pep Albumin Vsoon-2-Jioztofya Znykv-2-Drlmhgrsh Beta Globulins PEP Interpretation Cholesterol LDL Cholesterol Direct 03/25/16 03/25/16 03/25/16 07:55 12:19 13:00 WBC RBC Hgb Hct MCV MCH MCHC Plt Count Lymph % (Auto) [place] % (Auto) Lymph # [place] # Baso # Seg Neutrophils % Seg Neuts % (Manual) Lymphocytes % (Manual) Seg Neutrophils # Seg Neutrophils # Man Lymphocytes # (Manual) Monocytes # (Manual) PT INR APTT Heparin Anti-Xa Level POC ABG pH POC ABG pCO2 POC ABG pO2 Sodium Potassium Chloride Carbon Dioxide BUN Creatinine Glucose POC Glucose 231 H 314 H Calcium Phosphorus Lactate Dehydrogenase Total Creatine Kinase NT-Pro-B Natriuret Pep Albumin 3.4 L Gofty-3-Tfihqqvmy 0.4 H Nbwlb-9-Wufhgbupi 1.1 H Beta Globulins 0.6 H PEP Interpretation see below H Cholesterol LDL Cholesterol Direct 03/25/16 03/25/16 03/26/16 16:41 22:45 08:32 WBC RBC Hgb Hct MCV MCH MCHC Plt Count Lymph % (Auto) [place] % (Auto) Lymph # [place] # Baso # Seg Neutrophils % Seg Neuts % (Manual) Lymphocytes % (Manual) Seg Neutrophils # Seg Neutrophils # Man Lymphocytes # (Manual) Monocytes # (Manual) PT INR APTT Heparin Anti-Xa Level POC ABG pH POC ABG pCO2 POC ABG pO2 Sodium Potassium Chloride Carbon Dioxide BUN Creatinine Glucose POC Glucose 444 H 326 H 360 H Calcium Phosphorus Lactate Dehydrogenase Total Creatine Kinase NT-Pro-B Natriuret Pep Albumin Heatk-0-Clpeokepb Pohvl-9-Hpzxsecfc Beta Globulins PEP Interpretation Cholesterol LDL Cholesterol Direct 03/26/16 03/26/16 03/26/16 12:38 15:33 15:47 WBC RBC Hgb Hct MCV MCH MCHC Plt Count Lymph % (Auto) [place] % (Auto) Lymph # [place] # Baso # Seg Neutrophils % Seg Neuts % (Manual) Lymphocytes % (Manual) Seg Neutrophils # Seg Neutrophils # Man Lymphocytes # (Manual) Monocytes # (Manual) PT INR APTT Heparin Anti-Xa Level POC ABG pH 7.511 H POC ABG pCO2 26.5 L POC ABG pO2 70 L Sodium Potassium Chloride Carbon Dioxide BUN Creatinine Glucose POC Glucose 280 H 174 H Calcium Phosphorus Lactate Dehydrogenase Total Creatine Kinase NT-Pro-B Natriuret Pep Albumin Dqknm-3-Bzractcxr Yxvan-4-Eqltptxkn Beta Globulins PEP Interpretation Cholesterol LDL Cholesterol Direct 03/26/16 03/26/16 03/26/16 16:47 16:47 18:51 WBC 14.0 H RBC 5.17 H Hgb Hct MCV MCH 26 L MCHC 31 L Plt Count 139 L Lymph % (Auto) [place] % (Auto) Lymph # [place] # Baso # Seg Neutrophils % Seg Neuts % (Manual) Lymphocytes % (Manual) Seg Neutrophils # Seg Neutrophils # Man Lymphocytes # (Manual) Monocytes # (Manual) PT INR APTT Heparin Anti-Xa Level POC ABG pH POC ABG pCO2 33.9 L POC ABG pO2 150 H Sodium 164 H* Potassium 3.4 L Chloride 128.5 H Carbon Dioxide BUN 30 H Creatinine 2.2 H Glucose 121 H POC Glucose Calcium 8.1 L Phosphorus Lactate Dehydrogenase Total Creatine Kinase NT-Pro-B Natriuret Pep Albumin Myiya-5-Fnozmgvlm Cthad-9-Olybrhuro Beta Globulins PEP Interpretation Cholesterol LDL Cholesterol Direct 03/27/16 03/27/16 03/27/16 02:19 05:47 06:02 WBC RBC Hgb Hct MCV MCH MCHC Plt Count Lymph % (Auto) [place] % (Auto) Lymph # [place] # Baso # Seg Neutrophils % Seg Neuts % (Manual) Lymphocytes % (Manual) Seg Neutrophils # Seg Neutrophils # Man Lymphocytes # (Manual) Monocytes # (Manual) PT INR APTT Heparin Anti-Xa Level POC ABG pH POC ABG pCO2 27.3 L 30.3 L POC ABG pO2 50 L 112 H Sodium 158 H Potassium Chloride 126.7 H Carbon Dioxide 20 L BUN 25 H Creatinine 1.7 H Glucose POC Glucose Calcium 7.0 L Phosphorus Lactate Dehydrogenase Total Creatine Kinase NT-Pro-B Natriuret Pep Albumin Dfywy-2-Dudwoovwk Gsxba-5-Hquxfakye Beta Globulins PEP Interpretation Cholesterol LDL Cholesterol Direct 03/27/16 03/27/16 03/27/16 07:51 09:20 11:45 WBC 14.2 H RBC Hgb Hct MCV 83 L MCH 27 L MCHC Plt Count 113 L Lymph % (Auto) [place] % (Auto) Lymph # [place] # Baso # Seg Neutrophils % Seg Neuts % (Manual) Lymphocytes % (Manual) Seg Neutrophils # Seg Neutrophils # Man Lymphocytes # (Manual) Monocytes # (Manual) PT INR APTT Heparin Anti-Xa Level POC ABG pH POC ABG pCO2 POC ABG pO2 Sodium Potassium Chloride Carbon Dioxide BUN Creatinine Glucose POC Glucose 124 H 241 H Calcium Phosphorus Lactate Dehydrogenase Total Creatine Kinase NT-Pro-B Natriuret Pep Albumin Vxzzy-0-Rskgjqilu Vclte-1-Jsaqiruha Beta Globulins PEP Interpretation Cholesterol LDL Cholesterol Direct 03/27/16 03/27/16 03/28/16 16:39 22:03 03:29 WBC RBC Hgb Hct MCV MCH MCHC Plt Count Lymph % (Auto) [place] % (Auto) Lymph # [place] # Baso # Seg Neutrophils % Seg Neuts % (Manual) Lymphocytes % (Manual) Seg Neutrophils # Seg Neutrophils # Man Lymphocytes # (Manual) Monocytes # (Manual) PT INR APTT Heparin Anti-Xa Level POC ABG pH POC ABG pCO2 POC ABG pO2 Sodium Potassium Chloride Carbon Dioxide BUN Creatinine Glucose POC Glucose 266 H 167 H 241 H Calcium Phosphorus Lactate Dehydrogenase Total Creatine Kinase NT-Pro-B Natriuret Pep Albumin Foaon-5-Jhpbbblbh Pscws-7-Fyqvampqk Beta Globulins PEP Interpretation Cholesterol LDL Cholesterol Direct 03/28/16 03/28/16 03/28/16 05:00 05:00 05:00 WBC RBC Hgb Hct MCV 83 L MCH 27 L MCHC Plt Count 106 L Lymph % (Auto) [place] % (Auto) 10.1 H Lymph # [place] # 1.0 H Baso # Seg Neutrophils % 75.1 H Seg Neuts % (Manual) Lymphocytes % (Manual) Seg Neutrophils # Seg Neutrophils # Man Lymphocytes # (Manual) Monocytes # (Manual) PT INR APTT Heparin Anti-Xa Level POC ABG pH POC ABG pCO2 POC ABG pO2 Sodium 147 H D Potassium 3.1 L D Chloride 112.3 H Carbon Dioxide 21 L BUN Creatinine Glucose 208 H POC Glucose Calcium 7.0 L Phosphorus 2.2 L Lactate Dehydrogenase Total Creatine Kinase NT-Pro-B Natriuret Pep Albumin Kgjaz-3-Kurtjoxzf Iptmy-2-Lopmaxidz Beta Globulins PEP Interpretation Cholesterol LDL Cholesterol Direct 03/28/16 03/28/16 03/28/16 05:14 08:41 10:56 WBC RBC Hgb Hct MCV MCH MCHC Plt Count Lymph % (Auto) [place] % (Auto) Lymph # [place] # Baso # Seg Neutrophils % Seg Neuts % (Manual) Lymphocytes % (Manual) Seg Neutrophils # Seg Neutrophils # Man Lymphocytes # (Manual) Monocytes # (Manual) PT INR APTT Heparin Anti-Xa Level POC ABG pH 7.457 H POC ABG pCO2 29.7 L 27.7 L POC ABG pO2 Sodium Potassium Chloride Carbon Dioxide BUN Creatinine Glucose POC Glucose 228 H Calcium Phosphorus Lactate Dehydrogenase Total Creatine Kinase NT-Pro-B Natriuret Pep Albumin Iuhen-9-Wpvueicil Gfpwg-5-Htdzqndov Beta Globulins PEP Interpretation Cholesterol LDL Cholesterol Direct 03/28/16 03/28/16 03/28/16 11:37 13:29 16:22 WBC RBC Hgb Hct MCV MCH MCHC Plt Count Lymph % (Auto) [place] % (Auto) Lymph # [place] # Baso # Seg Neutrophils % Seg Neuts % (Manual) Lymphocytes % (Manual) Seg Neutrophils # Seg Neutrophils # Man Lymphocytes # (Manual) Monocytes # (Manual) PT INR APTT Heparin Anti-Xa Level POC ABG pH POC ABG pCO2 POC ABG pO2 Sodium Potassium Chloride Carbon Dioxide BUN Creatinine Glucose POC Glucose 226 H 200 H Calcium Phosphorus Lactate Dehydrogenase Total Creatine Kinase 356 H NT-Pro-B Natriuret Pep Albumin Egyzc-0-Tevqoxuta Qkbdw-2-Scoyhxpvm Beta Globulins PEP Interpretation Cholesterol LDL Cholesterol Direct 03/28/16 03/29/16 03/29/16 21:48 04:50 04:50 WBC RBC Hgb 11.5 L Hct 35.3 L MCV 81 L MCH 26 L MCHC Plt Count 97 L Lymph % (Auto) [place] % (Auto) 11.7 H Lymph # [place] # 1.1 H Baso # Seg Neutrophils % Seg Neuts % (Manual) Lymphocytes % (Manual) Seg Neutrophils # Seg Neutrophils # Man Lymphocytes # (Manual) Monocytes # (Manual) PT INR APTT Heparin Anti-Xa Level POC ABG pH POC ABG pCO2 POC ABG pO2 Sodium 136 L D Potassium 3.3 L Chloride Carbon Dioxide 20 L BUN Creatinine Glucose 386 H POC Glucose 188 H Calcium 6.8 L Phosphorus 1.6 L D Lactate Dehydrogenase Total Creatine Kinase NT-Pro-B Natriuret Pep Albumin Rgzvp-3-Udveccsoh Pfhvg-6-Lyulhyrwi Beta Globulins PEP Interpretation Cholesterol LDL Cholesterol Direct 03/29/16 03/29/16 03/29/16 08:10 11:12 16:09 WBC RBC Hgb Hct MCV MCH MCHC Plt Count Lymph % (Auto) [place] % (Auto) Lymph # [place] # Baso # Seg Neutrophils % Seg Neuts % (Manual) Lymphocytes % (Manual) Seg Neutrophils # Seg Neutrophils # Man Lymphocytes # (Manual) Monocytes # (Manual) PT INR APTT Heparin Anti-Xa Level POC ABG pH POC ABG pCO2 POC ABG pO2 Sodium Potassium Chloride Carbon Dioxide BUN Creatinine Glucose POC Glucose 230 H 180 H 46 L Calcium Phosphorus Lactate Dehydrogenase Total Creatine Kinase NT-Pro-B Natriuret Pep Albumin Hjfok-2-Krmavvgzt Ukith-5-Apzhdkxwi Beta Globulins PEP Interpretation Cholesterol LDL Cholesterol Direct 03/29/16 03/29/16 03/30/16 16:12 18:15 02:53 WBC RBC Hgb Hct MCV MCH MCHC Plt Count Lymph % (Auto) [place] % (Auto) Lymph # [place] # Baso # Seg Neutrophils % Seg Neuts % (Manual) Lymphocytes % (Manual) Seg Neutrophils # Seg Neutrophils # Man Lymphocytes # (Manual) Monocytes # (Manual) PT INR APTT Heparin Anti-Xa Level POC ABG pH POC ABG pCO2 POC ABG pO2 Sodium Potassium Chloride Carbon Dioxide BUN Creatinine Glucose POC Glucose 52 L 118 H 130 H Calcium Phosphorus Lactate Dehydrogenase Total Creatine Kinase NT-Pro-B Natriuret Pep Albumin Pfsgz-6-Civlkjadn Griab-6-Idyrsxrzi Beta Globulins PEP Interpretation Cholesterol LDL Cholesterol Direct 03/30/16 03/30/16 03/30/16 04:00 04:00 05:29 WBC RBC Hgb Hct MCV 81 L MCH 26 L MCHC Plt Count 116 L Lymph % (Auto) 10.[address] [place] % (Auto) 13.1 H Lymph # 1.[address] [place] # 1.3 H Baso # Seg Neutrophils % 74.2 H Seg Neuts % (Manual) Lymphocytes % (Manual) Seg Neutrophils # Seg Neutrophils # Man Lymphocytes # (Manual) Monocytes # (Manual) PT INR APTT Heparin Anti-Xa Level POC ABG pH 7.522 H POC ABG pCO2 22.7 L POC ABG pO2 137 H Sodium 147 H D Potassium Chloride 115.5 H Carbon Dioxide 20 L BUN Creatinine Glucose 116 H POC Glucose Calcium 7.6 L Phosphorus 2.3 L D Lactate Dehydrogenase Total Creatine Kinase NT-Pro-B Natriuret Pep Albumin Mjehw-7-Eshceukqm Gzche-3-Xkpqnxlvm Beta Globulins PEP Interpretation Cholesterol LDL Cholesterol Direct 03/30/16 03/30/16 03/30/16 05:47 08:05 08:59 WBC RBC Hgb Hct MCV MCH MCHC Plt Count Lymph % (Auto) [place] % (Auto) Lymph # [place] # Baso # Seg Neutrophils % Seg Neuts % (Manual) Lymphocytes % (Manual) Seg Neutrophils # Seg Neutrophils # Man Lymphocytes # (Manual) Monocytes # (Manual) PT INR APTT Heparin Anti-Xa Level POC ABG pH POC ABG pCO2 26.2 L POC ABG pO2 115 H Sodium Potassium Chloride Carbon Dioxide BUN Creatinine Glucose POC Glucose 138 H 171 H Calcium Phosphorus Lactate Dehydrogenase Total Creatine Kinase NT-Pro-B Natriuret Pep Albumin Kvswq-1-Zfprfsedl Zmxos-0-Dngglhvcv Beta Globulins PEP Interpretation Cholesterol LDL Cholesterol Direct 03/30/16 03/30/16 03/30/16 12:11 12:11 16:39 WBC RBC Hgb Hct MCV MCH MCHC Plt Count Lymph % (Auto) [place] % (Auto) Lymph # [place] # Baso # Seg Neutrophils % Seg Neuts % (Manual) Lymphocytes % (Manual) Seg Neutrophils # Seg Neutrophils # Man Lymphocytes # (Manual) Monocytes # (Manual) PT INR APTT Heparin Anti-Xa Level POC ABG pH 7.476 H POC ABG pCO2 29.0 L POC ABG pO2 Sodium Potassium Chloride Carbon Dioxide BUN Creatinine Glucose POC Glucose 142 H 59 L Calcium Phosphorus Lactate Dehydrogenase Total Creatine Kinase NT-Pro-B Natriuret Pep Albumin Yjtyr-4-Gnrrwfgoo Ziasc-5-Irgkshiwv Beta Globulins PEP Interpretation Cholesterol LDL Cholesterol Direct 03/30/16 03/30/16 03/31/16 18:41 21:59 05:02 WBC RBC Hgb Hct MCV MCH MCHC Plt Count Lymph % (Auto) [place] % (Auto) Lymph # [place] # Baso # Seg Neutrophils % Seg Neuts % (Manual) Lymphocytes % (Manual) Seg Neutrophils # Seg Neutrophils # Man Lymphocytes # (Manual) Monocytes # (Manual) PT INR APTT Heparin Anti-Xa Level POC ABG pH 7.519 H POC ABG pCO2 21.8 L POC ABG pO2 142 H Sodium Potassium Chloride Carbon Dioxide BUN Creatinine Glucose POC Glucose 145 H 154 H Calcium Phosphorus Lactate Dehydrogenase Total Creatine Kinase NT-Pro-B Natriuret Pep Albumin Cjkhp-7-Irvxixgcy Mmyzj-4-Ekuqjucqg Beta Globulins PEP Interpretation Cholesterol LDL Cholesterol Direct 03/31/16 03/31/16 03/31/16 05:15 05:15 05:15 WBC 13.4 H RBC 5.21 H Hgb Hct MCV 81 L MCH 26 L MCHC Plt Count Lymph % (Auto) 9.[address] [place] % (Auto) 14.0 H Lymph # [place] # 1.9 H Baso # Seg Neutrophils % 75.0 H Seg Neuts % (Manual) Lymphocytes % (Manual) Seg Neutrophils # 10.1 H Seg Neutrophils # Man Lymphocytes # (Manual) Monocytes # (Manual) PT INR APTT Heparin Anti-Xa Level POC ABG pH POC ABG pCO2 POC ABG pO2 Sodium Potassium Chloride 108.5 H Carbon Dioxide 19 L BUN Creatinine Glucose 188 H POC Glucose Calcium Phosphorus Lactate Dehydrogenase Total Creatine Kinase NT-Pro-B Natriuret Pep 1089 H Albumin Sztxd-1-Zycxjrqwa Wkqrp-2-Jotznzwtd Beta Globulins PEP Interpretation Cholesterol LDL Cholesterol Direct 03/31/16 03/31/16 03/31/16 07:23 11:12 15:20 WBC RBC Hgb Hct MCV MCH MCHC Plt Count Lymph % (Auto) [place] % (Auto) Lymph # [place] # Baso # Seg Neutrophils % Seg Neuts % (Manual) Lymphocytes % (Manual) Seg Neutrophils # Seg Neutrophils # Man Lymphocytes # (Manual) Monocytes # (Manual) PT INR APTT Heparin Anti-Xa Level POC ABG pH POC ABG pCO2 POC ABG pO2 Sodium Potassium Chloride Carbon Dioxide BUN Creatinine Glucose POC Glucose 233 H 228 H 208 H Calcium Phosphorus Lactate Dehydrogenase Total Creatine Kinase NT-Pro-B Natriuret Pep Albumin Fscms-2-Qxpqfrxii Rklvi-0-Yzcjscivk Beta Globulins PEP Interpretation Cholesterol LDL Cholesterol Direct 03/31/16 04/01/16 04/01/16 21:27 04:41 05:35 WBC 12.1 H RBC Hgb Hct MCV 81 L MCH 26 L MCHC Plt Count Lymph % (Auto) 8.[address] [place] % (Auto) 14.0 H Lymph # 1.[address] [place] # 1.7 H Baso # Seg Neutrophils % 76.2 H Seg Neuts % (Manual) Lymphocytes % (Manual) Seg Neutrophils # 9.2 H Seg Neutrophils # Man Lymphocytes # (Manual) Monocytes # (Manual) PT INR APTT Heparin Anti-Xa Level POC ABG pH 7.455 H POC ABG pCO2 31.0 L POC ABG pO2 Sodium Potassium Chloride Carbon Dioxide BUN Creatinine Glucose POC Glucose 162 H Calcium Phosphorus Lactate Dehydrogenase Total Creatine Kinase NT-Pro-B Natriuret Pep Albumin Inhgx-2-Vgzdqpyss Etkkg-8-Cogxvpgub Beta Globulins PEP Interpretation Cholesterol LDL Cholesterol Direct 04/01/16 04/01/16 04/01/16 05:35 08:44 12:49 WBC RBC Hgb Hct MCV MCH MCHC Plt Count Lymph % (Auto) [place] % (Auto) Lymph # [place] # Baso # Seg Neutrophils % Seg Neuts % (Manual) Lymphocytes % (Manual) Seg Neutrophils # Seg Neutrophils # Man Lymphocytes # (Manual) Monocytes # (Manual) PT INR APTT Heparin Anti-Xa Level POC ABG pH POC ABG pCO2 POC ABG pO2 Sodium Potassium Chloride Carbon Dioxide BUN Creatinine Glucose 256 H POC Glucose 257 H 279 H Calcium 8.0 L Phosphorus Lactate Dehydrogenase Total Creatine Kinase NT-Pro-B Natriuret Pep 1205 H Albumin Srqxx-7-Jrgkgkccp Xkhib-3-Bzkyudwik Beta Globulins PEP Interpretation Cholesterol LDL Cholesterol Direct 04/01/16 04/02/16 04/02/16 18:12 00:42 04:17 WBC RBC Hgb Hct MCV MCH MCHC Plt Count Lymph % (Auto) [place] % (Auto) Lymph # [place] # Baso # Seg Neutrophils % Seg Neuts % (Manual) Lymphocytes % (Manual) Seg Neutrophils # Seg Neutrophils # Man Lymphocytes # (Manual) Monocytes # (Manual) PT INR APTT Heparin Anti-Xa Level POC ABG pH 7.582 H POC ABG pCO2 26.8 L POC ABG pO2 Sodium Potassium Chloride Carbon Dioxide BUN Creatinine Glucose POC Glucose 168 H 282 H Calcium Phosphorus Lactate Dehydrogenase Total Creatine Kinase NT-Pro-B Natriuret Pep Albumin Xcjem-9-Ipcwygxgg Utlhc-4-Yhgvbnfrc Beta Globulins PEP Interpretation Cholesterol LDL Cholesterol Direct 04/02/16 04/02/16 04/02/16 05:00 05:00 06:27 WBC 12.4 H RBC Hgb Hct MCV 81 L MCH 26 L MCHC Plt Count Lymph % (Auto) 6.[address] [place] % (Auto) 13.3 H Lymph # 0.[address] [place] # 1.7 H Baso # Seg Neutrophils % 79.4 H Seg Neuts % (Manual) Lymphocytes % (Manual) Seg Neutrophils # 9.9 H Seg Neutrophils # Man Lymphocytes # (Manual) Monocytes # (Manual) PT INR APTT Heparin Anti-Xa Level POC ABG pH POC ABG pCO2 POC ABG pO2 Sodium 146 H Potassium Chloride Carbon Dioxide BUN Creatinine Glucose 334 H POC Glucose 317 H Calcium 8.0 L Phosphorus Lactate Dehydrogenase Total Creatine Kinase NT-Pro-B Natriuret Pep Albumin Ueecc-3-Kltgdxpvo Rkvcs-3-Xakvgwaxk Beta Globulins PEP Interpretation Cholesterol LDL Cholesterol Direct 04/02/16 04/02/16 04/02/16 11:51 13:10 17:24 WBC RBC Hgb Hct MCV MCH MCHC Plt Count Lymph % (Auto) [place] % (Auto) Lymph # [place] # Baso # Seg Neutrophils % Seg Neuts % (Manual) Lymphocytes % (Manual) Seg Neutrophils # Seg Neutrophils # Man Lymphocytes # (Manual) Monocytes # (Manual) PT INR APTT Heparin Anti-Xa Level POC ABG pH 7.518 H POC ABG pCO2 POC ABG pO2 Sodium Potassium Chloride Carbon Dioxide BUN Creatinine Glucose POC Glucose 278 H 195 H Calcium Phosphorus Lactate Dehydrogenase Total Creatine Kinase NT-Pro-B Natriuret Pep Albumin Kcnzd-6-Nmhvynknw Jsaag-2-Itudwhgvn Beta Globulins PEP Interpretation Cholesterol LDL Cholesterol Direct 04/03/16 04/03/16 04/03/16 00:18 04:10 04:10 WBC 14.3 H RBC Hgb Hct MCV 81 L MCH 26 L MCHC Plt Count Lymph % (Auto) 9.[address] [place] % (Auto) 10.7 H Lymph # [place] # 1.5 H Baso # 0.2 H Seg Neutrophils % 78.5 H Seg Neuts % (Manual) Lymphocytes % (Manual) Seg Neutrophils # 11.3 H Seg Neutrophils # Man Lymphocytes # (Manual) Monocytes # (Manual) PT INR APTT Heparin Anti-Xa Level POC ABG pH POC ABG pCO2 POC ABG pO2 Sodium 148 H Potassium Chloride 108.1 H Carbon Dioxide BUN 21 H Creatinine Glucose 227 H POC Glucose 144 H Calcium 8.2 L Phosphorus Lactate Dehydrogenase Total Creatine Kinase NT-Pro-B Natriuret Pep Albumin Cafbx-9-Nkdxiwomw Pjbww-4-Ultyzhpgu Beta Globulins PEP Interpretation Cholesterol LDL Cholesterol Direct 04/03/16 04/03/16 04/04/16 11:14 17:10 04:00 WBC 14.5 H RBC Hgb Hct MCV 81 L MCH 26 L MCHC Plt Count Lymph % (Auto) 7.[address] [place] % (Auto) 7.6 H Lymph # 1.[address] [place] # 1.1 H Baso # Seg Neutrophils % 84.5 H Seg Neuts % (Manual) Lymphocytes % (Manual) Seg Neutrophils # 12.3 H Seg Neutrophils # Man Lymphocytes # (Manual) Monocytes # (Manual) PT INR APTT Heparin Anti-Xa Level POC ABG pH POC ABG pCO2 POC ABG pO2 Sodium Potassium Chloride Carbon Dioxide BUN Creatinine Glucose POC Glucose 267 H 212 H Calcium Phosphorus Lactate Dehydrogenase Total Creatine Kinase NT-Pro-B Natriuret Pep Albumin Hqiaw-9-Epsvrsfvq Hdmbo-3-Lznnslgkx Beta Globulins PEP Interpretation Cholesterol LDL Cholesterol Direct 04/04/16 04/04/16 04/04/16 05:00 09:55 09:55 WBC RBC Hgb 11.5 L Hct MCV MCH MCHC Plt Count Lymph % (Auto) [place] % (Auto) Lymph # [place] # Baso # Seg Neutrophils % Seg Neuts % (Manual) Lymphocytes % (Manual) Seg Neutrophils # Seg Neutrophils # Man Lymphocytes # (Manual) Monocytes # (Manual) PT INR APTT 42.1 H Heparin Anti-Xa Level POC ABG pH POC ABG pCO2 POC ABG pO2 Sodium 146 H Potassium Chloride Carbon Dioxide BUN 22 H Creatinine Glucose 128 H POC Glucose Calcium Phosphorus Lactate Dehydrogenase Total Creatine Kinase NT-Pro-B Natriuret Pep Albumin Fwjhy-5-Zwapvybml Ptkix-2-Jujbxgoun Beta Globulins PEP Interpretation Cholesterol LDL Cholesterol Direct 04/04/16 04/04/16 04/04/16 11:45 17:49 17:55 WBC RBC Hgb Hct MCV MCH MCHC Plt Count Lymph % (Auto) [place] % (Auto) Lymph # [place] # Baso # Seg Neutrophils % Seg Neuts % (Manual) Lymphocytes % (Manual) Seg Neutrophils # Seg Neutrophils # Man Lymphocytes # (Manual) Monocytes # (Manual) PT INR APTT Heparin Anti-Xa Level 1.19 H POC ABG pH POC ABG pCO2 POC ABG pO2 Sodium Potassium Chloride Carbon Dioxide BUN Creatinine Glucose POC Glucose 231 H 186 H Calcium Phosphorus Lactate Dehydrogenase Total Creatine Kinase NT-Pro-B Natriuret Pep Albumin Fncmj-5-Kbvsqrlpa Jkkmp-4-Itqayvhsk Beta Globulins PEP Interpretation Cholesterol LDL Cholesterol Direct 04/05/16 04/05/16 04/05/16 00:35 05:32 05:42 WBC RBC Hgb Hct MCV MCH MCHC Plt Count Lymph % (Auto) [place] % (Auto) Lymph # [place] # Baso # Seg Neutrophils % Seg Neuts % (Manual) Lymphocytes % (Manual) Seg Neutrophils # Seg Neutrophils # Man Lymphocytes # (Manual) Monocytes # (Manual) PT INR APTT Heparin Anti-Xa Level POC ABG pH 7.491 H POC ABG pCO2 POC ABG pO2 Sodium Potassium Chloride Carbon Dioxide BUN Creatinine Glucose POC Glucose 192 H 242 H Calcium Phosphorus Lactate Dehydrogenase Total Creatine Kinase NT-Pro-B Natriuret Pep Albumin [id number]-[id number] Ynyya-1-Giiotvqar Beta Globulins PEP Interpretation Cholesterol LDL Cholesterol Direct 04/05/16 04/05/16 04/05/16 06:20 06:20 12:19 WBC 13.9 H RBC Hgb 11.6 L Hct MCV 81 L MCH 26 L MCHC Plt Count Lymph % (Auto) 9.[address] [place] % (Auto) 8.7 H Lymph # [place] # 1.2 H Baso # Seg Neutrophils % 80.9 H Seg Neuts % (Manual) Lymphocytes % (Manual) Seg Neutrophils # 11.3 H Seg Neutrophils # Man Lymphocytes # (Manual) Monocytes # (Manual) PT INR APTT Heparin Anti-Xa Level POC ABG pH POC ABG pCO2 POC ABG pO2 Sodium 148 H Potassium Chloride Carbon Dioxide BUN 23 H Creatinine Glucose 242 H POC Glucose 187 H Calcium Phosphorus Lactate Dehydrogenase Total Creatine Kinase NT-Pro-B Natriuret Pep Albumin Ghfoj-1-Juvqcrjhf Gfcnw-4-Lrcmufnwe Beta Globulins PEP Interpretation Cholesterol LDL Cholesterol Direct 04/05/16 04/05/16 04/06/16 17:10 23:45 05:23 WBC 13.0 H RBC Hgb Hct MCV 82 L MCH 26 L MCHC 31 L Plt Count Lymph % (Auto) 6.[address] [place] % (Auto) 8.3 H Lymph # 0.[address] [place] # 1.1 H Baso # Seg Neutrophils % 84.6 H Seg Neuts % (Manual) Lymphocytes % (Manual) Seg Neutrophils # 11.0 H Seg Neutrophils # Man Lymphocytes # (Manual) Monocytes # (Manual) PT INR APTT Heparin Anti-Xa Level POC ABG pH POC ABG pCO2 POC ABG pO2 Sodium Potassium Chloride Carbon Dioxide BUN Creatinine Glucose POC Glucose 169 H 202 H Calcium Phosphorus Lactate Dehydrogenase Total Creatine Kinase NT-Pro-B Natriuret Pep Albumin Jdvol-8-Gzpvzjagj Rxacz-3-Caxefyrjp Beta Globulins PEP Interpretation Cholesterol LDL Cholesterol Direct 04/06/16 04/06/16 04/06/16 05:23 05:23 06:11 WBC RBC Hgb Hct MCV MCH MCHC Plt Count Lymph % (Auto) [place] % (Auto) Lymph # [place] # Baso # Seg Neutrophils % Seg Neuts % (Manual) Lymphocytes % (Manual) Seg Neutrophils # Seg Neutrophils # Man Lymphocytes # (Manual) Monocytes # (Manual) PT INR APTT Heparin Anti-Xa Level 0.21 L POC ABG pH POC ABG pCO2 POC ABG pO2 Sodium 153 H Potassium Chloride 111.3 H Carbon Dioxide BUN 22 H Creatinine Glucose 62 L POC Glucose 56 L Calcium Phosphorus Lactate Dehydrogenase Total Creatine Kinase NT-Pro-B Natriuret Pep Albumin Vzbxm-5-Pruvhfoan Netdg-7-Hsoazyfmz Beta Globulins PEP Interpretation Cholesterol LDL Cholesterol Direct 04/06/16 04/06/16 04/06/16 06:52 11:36 14:58 WBC RBC Hgb Hct MCV MCH MCHC Plt Count Lymph % (Auto) [place] % (Auto) Lymph # [place] # Baso # Seg Neutrophils % Seg Neuts % (Manual) Lymphocytes % (Manual) Seg Neutrophils # Seg Neutrophils # Man Lymphocytes # (Manual) Monocytes # (Manual) PT INR APTT Heparin Anti-Xa Level POC ABG pH POC ABG pCO2 POC ABG pO2 Sodium Potassium Chloride Carbon Dioxide BUN Creatinine Glucose POC Glucose 206 H 139 H 147 H Calcium Phosphorus Lactate Dehydrogenase Total Creatine Kinase NT-Pro-B Natriuret Pep Albumin Gwodd-2-Yjhhvqtnf Uocdx-8-Qxelnbxau Beta Globulins PEP Interpretation Cholesterol LDL Cholesterol Direct 04/06/16 04/06/16 04/06/16 16:03 21:18 23:53 WBC RBC Hgb Hct MCV MCH MCHC Plt Count Lymph % (Auto) [place] % (Auto) Lymph # [place] # Baso # Seg Neutrophils % Seg Neuts % (Manual) Lymphocytes % (Manual) Seg Neutrophils # Seg Neutrophils # Man Lymphocytes # (Manual) Monocytes # (Manual) PT INR APTT Heparin Anti-Xa Level POC ABG pH POC ABG pCO2 POC ABG pO2 Sodium Potassium Chloride Carbon Dioxide BUN Creatinine Glucose POC Glucose 154 H 293 H 301 H Calcium Phosphorus Lactate Dehydrogenase Total Creatine Kinase NT-Pro-B Natriuret Pep Albumin Vruwm-1-Vqnsgztpy Jryjt-4-Tzfivuvfi Beta Globulins PEP Interpretation Cholesterol LDL Cholesterol Direct 04/07/16 04/07/16 04/07/16 02:30 05:11 05:11 WBC 12.5 H RBC Hgb 11.5 L Hct MCV 82 L MCH 26 L MCHC 31 L Plt Count Lymph % (Auto) [place] % (Auto) Lymph # [place] # Baso # Seg Neutrophils % Seg Neuts % (Manual) Lymphocytes % (Manual) Seg Neutrophils # Seg Neutrophils # Man Lymphocytes # (Manual) Monocytes # (Manual) PT INR APTT Heparin Anti-Xa Level 0.11 L POC ABG pH POC ABG pCO2 POC ABG pO2 Sodium 150 H Potassium Chloride 109.5 H Carbon Dioxide BUN 28 H Creatinine Glucose 264 H POC Glucose Calcium Phosphorus Lactate Dehydrogenase Total Creatine Kinase NT-Pro-B Natriuret Pep Albumin Kwktr-0-Ifmnscvht Slhvk-7-Ssqvlpdvr Beta Globulins PEP Interpretation Cholesterol LDL Cholesterol Direct 04/07/16 04/07/16 04/07/16 06:46 10:18 11:50 WBC RBC Hgb Hct MCV MCH MCHC Plt Count Lymph % (Auto) [place] % (Auto) Lymph # [place] # Baso # Seg Neutrophils % Seg Neuts % (Manual) Lymphocytes % (Manual) Seg Neutrophils # Seg Neutrophils # Man Lymphocytes # (Manual) Monocytes # (Manual) PT 15.1 H INR 1.20 H APTT Heparin Anti-Xa Level POC ABG pH POC ABG pCO2 POC ABG pO2 Sodium Potassium Chloride Carbon Dioxide BUN Creatinine Glucose POC Glucose 259 H 288 H Calcium Phosphorus Lactate Dehydrogenase Total Creatine Kinase NT-Pro-B Natriuret Pep Albumin Hrbai-8-Jrrjnjhsz Ktsif-0-Gpmeudjmg Beta Globulins PEP Interpretation Cholesterol LDL Cholesterol Direct 04/07/16 04/08/16 04/08/16 17:58 01:25 06:49 WBC RBC Hgb Hct MCV MCH MCHC Plt Count Lymph % (Auto) [place] % (Auto) Lymph # [place] # Baso # Seg Neutrophils % Seg Neuts % (Manual) Lymphocytes % (Manual) Seg Neutrophils # Seg Neutrophils # Man Lymphocytes # (Manual) Monocytes # (Manual) PT INR APTT Heparin Anti-Xa Level POC ABG pH POC ABG pCO2 POC ABG pO2 Sodium 156 H Potassium Chloride 114.7 H Carbon Dioxide BUN 33 H Creatinine Glucose 169 H POC Glucose 330 H 146 H Calcium Phosphorus Lactate Dehydrogenase Total Creatine Kinase NT-Pro-B Natriuret Pep Albumin Hhwiu-3-Yihvvrvhm Bnjgl-0-Fxaowknlq Beta Globulins PEP Interpretation Cholesterol LDL Cholesterol Direct 04/08/16 04/08/16 04/08/16 07:34 10:28 10:28 WBC RBC Hgb Hct MCV MCH MCHC Plt Count Lymph % (Auto) [place] % (Auto) Lymph # [place] # Baso # Seg Neutrophils % Seg Neuts % (Manual) Lymphocytes % (Manual) Seg Neutrophils # Seg Neutrophils # Man Lymphocytes # (Manual) Monocytes # (Manual) PT 15.5 H INR 1.24 H APTT Heparin Anti-Xa Level 0.24 L POC ABG pH POC ABG pCO2 POC ABG pO2 Sodium Potassium Chloride Carbon Dioxide BUN Creatinine Glucose POC Glucose 232 H Calcium Phosphorus Lactate Dehydrogenase Total Creatine Kinase NT-Pro-B Natriuret Pep Albumin Makzb-2-Souyjzayq Ibkgn-9-Oqsnmider Beta Globulins PEP Interpretation Cholesterol LDL Cholesterol Direct 04/08/16 04/08/16 04/09/16 11:36 15:38 00:01 WBC RBC Hgb Hct MCV MCH MCHC Plt Count Lymph % (Auto) [place] % (Auto) Lymph # [place] # Baso # Seg Neutrophils % Seg Neuts % (Manual) Lymphocytes % (Manual) Seg Neutrophils # Seg Neutrophils # Man Lymphocytes # (Manual) Monocytes # (Manual) PT INR APTT Heparin Anti-Xa Level POC ABG pH POC ABG pCO2 POC ABG pO2 Sodium Potassium Chloride Carbon Dioxide BUN Creatinine Glucose POC Glucose 193 H 163 H 180 H Calcium Phosphorus Lactate Dehydrogenase Total Creatine Kinase NT-Pro-B Natriuret Pep Albumin Zdmib-0-Etomwufgy Crkzp-3-Tvdvbwahl Beta Globulins PEP Interpretation Cholesterol LDL Cholesterol Direct 04/09/16 04/09/16 04/09/16 06:17 06:42 06:42 WBC RBC Hgb Hct MCV MCH MCHC Plt Count Lymph % (Auto) [place] % (Auto) Lymph # [place] # Baso # Seg Neutrophils % Seg Neuts % (Manual) Lymphocytes % (Manual) Seg Neutrophils # Seg Neutrophils # Man Lymphocytes # (Manual) Monocytes # (Manual) PT 17.4 H INR 1.43 H APTT Heparin Anti-Xa Level POC ABG pH POC ABG pCO2 POC ABG pO2 Sodium 153 H Potassium Chloride 113.2 H Carbon Dioxide BUN 29 H Creatinine Glucose 301 H POC Glucose 249 H Calcium 8.3 L Phosphorus Lactate Dehydrogenase Total Creatine Kinase NT-Pro-B Natriuret Pep Albumin Mqymi-2-Yttmbdayp Pvhsi-1-Sxjdjdfog Beta Globulins PEP Interpretation Cholesterol LDL Cholesterol Direct 04/09/16 04/09/16 04/09/16 07:37 11:26 15:45 WBC RBC Hgb Hct MCV MCH MCHC Plt Count Lymph % (Auto) [place] % (Auto) Lymph # [place] # Baso # Seg Neutrophils % Seg Neuts % (Manual) Lymphocytes % (Manual) Seg Neutrophils # Seg Neutrophils # Man Lymphocytes # (Manual) Monocytes # (Manual) PT INR APTT Heparin Anti-Xa Level POC ABG pH POC ABG pCO2 POC ABG pO2 Sodium Potassium Chloride Carbon Dioxide BUN Creatinine Glucose POC Glucose 283 H 306 H 354 H Calcium Phosphorus Lactate Dehydrogenase Total Creatine Kinase NT-Pro-B Natriuret Pep Albumin Yuxmm-7-Abirsjyju Scvqb-8-Pyvzlgzcu Beta Globulins PEP Interpretation Cholesterol LDL Cholesterol Direct 04/10/16 04/10/16 04/10/16 00:53 07:15 07:34 WBC RBC Hgb 11.3 L Hct MCV MCH MCHC Plt Count Lymph % (Auto) [place] % (Auto) Lymph # [place] # Baso # Seg Neutrophils % Seg Neuts % (Manual) Lymphocytes % (Manual) Seg Neutrophils # Seg Neutrophils # Man Lymphocytes # (Manual) Monocytes # (Manual) PT INR APTT Heparin Anti-Xa Level POC ABG pH POC ABG pCO2 POC ABG pO2 Sodium Potassium Chloride Carbon Dioxide BUN Creatinine Glucose POC Glucose 323 H 311 H Calcium Phosphorus Lactate Dehydrogenase Total Creatine Kinase NT-Pro-B Natriuret Pep Albumin Jemmt-6-Vtduckqlg Igkpj-8-Fwuqvyxvz Beta Globulins PEP Interpretation Cholesterol LDL Cholesterol Direct 04/10/16 04/10/16 04/10/16 07:34 07:34 11:25 WBC RBC Hgb Hct MCV MCH MCHC Plt Count Lymph % (Auto) [place] % (Auto) Lymph # [place] # Baso # Seg Neutrophils % Seg Neuts % (Manual) Lymphocytes % (Manual) Seg Neutrophils # Seg Neutrophils # Man Lymphocytes # (Manual) Monocytes # (Manual) PT 17.3 H INR 1.42 H APTT Heparin Anti-Xa Level POC ABG pH POC ABG pCO2 POC ABG pO2 Sodium 158 H Potassium Chloride 118.6 H Carbon Dioxide BUN 30 H Creatinine Glucose 330 H POC Glucose 335 H Calcium 8.3 L Phosphorus Lactate Dehydrogenase Total Creatine Kinase NT-Pro-B Natriuret Pep Albumin Otoyb-2-Kzyfrceyd Wxhkl-1-Jqvwfauth Beta Globulins PEP Interpretation Cholesterol LDL Cholesterol Direct 04/10/16 04/11/16 04/11/16 16:21 00:29 07:47 WBC RBC Hgb Hct MCV MCH MCHC Plt Count Lymph % (Auto) [place] % (Auto) Lymph # [place] # Baso # Seg Neutrophils % Seg Neuts % (Manual) Lymphocytes % (Manual) Seg Neutrophils # Seg Neutrophils # Man Lymphocytes # (Manual) Monocytes # (Manual) PT 18.4 H INR 1.53 H APTT Heparin Anti-Xa Level POC ABG pH POC ABG pCO2 POC ABG pO2 Sodium Potassium Chloride Carbon Dioxide BUN Creatinine Glucose POC Glucose 230 H 162 H Calcium Phosphorus Lactate Dehydrogenase Total Creatine Kinase NT-Pro-B Natriuret Pep Albumin Mfjos-0-Ubvifuyfm Gneiq-3-Wqnrvyzjb Beta Globulins PEP Interpretation Cholesterol LDL Cholesterol Direct 04/11/16 04/11/16 04/12/16 07:47 11:22 04:54 WBC RBC Hgb 11.0 L Hct 35.0 L MCV MCH MCHC Plt Count Lymph % (Auto) [place] % (Auto) Lymph # [place] # Baso # Seg Neutrophils % Seg Neuts % (Manual) Lymphocytes % (Manual) Seg Neutrophils # Seg Neutrophils # Man Lymphocytes # (Manual) Monocytes # (Manual) PT INR APTT Heparin Anti-Xa Level POC ABG pH POC ABG pCO2 POC ABG pO2 Sodium 155 H Potassium Chloride 114.5 H Carbon Dioxide BUN 23 H Creatinine Glucose 157 H POC Glucose 229 H Calcium Phosphorus Lactate Dehydrogenase Total Creatine Kinase NT-Pro-B Natriuret Pep Albumin Kgsal-9-Zccrniaev Vdcpz-1-Syxdlhlre Beta Globulins PEP Interpretation Cholesterol LDL Cholesterol Direct 04/12/16 04/12/16 04/12/16 04:54 04:54 05:57 WBC RBC Hgb Hct MCV MCH MCHC Plt Count Lymph % (Auto) [place] % (Auto) Lymph # [place] # Baso # Seg Neutrophils % Seg Neuts % (Manual) Lymphocytes % (Manual) Seg Neutrophils # Seg Neutrophils # Man Lymphocytes # (Manual) Monocytes # (Manual) PT 22.5 H INR 1.98 H APTT Heparin Anti-Xa Level 0.19 L POC ABG pH POC ABG pCO2 POC ABG pO2 Sodium 156 H Potassium Chloride 115.4 H Carbon Dioxide BUN 23 H Creatinine Glucose 143 H POC Glucose 194 H Calcium Phosphorus Lactate Dehydrogenase Total Creatine Kinase NT-Pro-B Natriuret Pep Albumin Axskz-1-Odhjlrlmc Tqgtn-6-Omaylkyci Beta Globulins PEP Interpretation Cholesterol LDL Cholesterol Direct
[2016-04-12] MEDS: NORMODYNE PO SCH ×3 (08:36→22:07)
[2016-04-12] MEDS: ASPIRIN PO SCH (08:37)
[2016-04-12] MEDS: CORDARONE PO SCH (08:37)
[2016-04-12] MEDS: KEPPRA PO SCH ×2 (08:38→22:05)
[2016-04-12] MEDS: PEPCID PO SCH ×2 (08:38→22:09)
[2016-04-12] MEDS: PROCARDIA XL PO SCH (08:39)
[2016-04-12] MEDS: ZESTRIL PO SCH ×2 (08:39→22:08)
[2016-04-12] MEDS: LEVEMIR SUB-Q SCH (10:17)
--- NOTE | 2016-04-12 14:50 | Progress Note ---
Assessment and Plan Assessment and plan: Acute respiratory failure. Was initially intubated, now extubated, transferred from ICU , now in telemetry. Pulmonology following Acute ischemic stroke. CT scan revealed acute ischemic infarct in the right cerebellum. MRI reveals subacute infarct in the right cerebellar hemisphere with associated edema and mass effect as previously described. Patient also with multiple areas of acute infarct in the left occipital and frontal lobes that are most likely embolic. LIZZIE done- No thrombus but decreased flow. Cardiology recommends anticoagulation with Coumadin. INR 1.98 today. Hypernatremia. Sodium 156. Continue daily BMP. Continue iv fluid 5% Dextrose and free water. Encephalopathy. EEG normal. Accelerated hypertension. Blood pressure improving . CAD-stable, continue current beta em, statin Diabetes mellitus type 2. This is uncontrolled. Increase Levemir to 40 units every morning . History of aortic dissection status post repair. History of prosthetic aortic valve replacement. Echo with normal function on 2015. UTI with Group B strep. Completed ceftriaxone Seizure Disorder. Continue Keppra DVT prophylaxis-On heparin drip, coumadin. GI prophylaxis-Pepcid Disposition:. Discussed with case management. Patient needs long term facility placement. Discussed with . Patient may need PEG tube. He has been very lethargic so unable to perform swallow eval. History Interval history: patient with stroke, encephalopathy, seizure disorder still lethargic, Hospitalist Physical - Physical exam Narrative exam: Gen: Not in acute distress, ill looking HEENT: Normocephalic, atraumatic Neck: supple, Dobhoff tube in nostril, no JVD Lungs clear to auscultation bilaterally, no crackles or wheeze Heart S1-S2 regular, no murmurs, rubs or gallops Abdomen:soft, Nontender, non distended, normal bowel sounds Extremities :no edema, no clubbing or cyanosis Neuro: lethargic,aphasia,dysphagia, slightly more alert, follows commands - Constitutional Vitals: Temp Pulse Resp BP Pulse Ox 98.7 F 80 20 121/77 100 04/12/16 12:00 04/12/16 12:00 04/12/16 12:00 04/12/16 12:00 04/12/16 12:00 General appearance: Present: no acute distress Results - Labs CBC & Chem 7: 04/12/16 04:54 04/12/16 04:54 Labs: Laboratory Last Values WBC 12.5 K/mm3 (4.5-11.0) H 04/07/16 05:11 RBC 4.44 M/mm3 (3.65-5.03) 04/07/16 05:11 Hgb 11.0 gm/dl (11.8-15.2) L 04/12/16 04:54 Hct 35.0 % (35.5-45.6) L 04/12/16 04:54 MCV 82 fl (84-94) L 04/07/16 05:11 MCH 26 pg (28-32) L 04/07/16 05:11 MCHC 31 % (32-34) L 04/07/16 05:11 RDW 14.7 % (13.2-15.2) 04/07/16 05:11 Plt Count 246 K/mm3 (140-440) 04/12/16 04:54 Lymph % (Auto) 6.7 % (13.4-35.0) L 04/06/16 05:23 [place] % (Auto) 8.3 % (0.0-7.3) H 04/06/16 05:23 Eos % (Auto) 0.1 % (0.0-4.3) 04/06/16 05:23 Baso % (Auto) 0.3 % (0.0-1.8) 04/06/16 05:23 Lymph # 0.9 K/mm3 (1.2-5.4) L 04/06/16 05:23 [place] # 1.1 K/mm3 (0.0-0.8) H 04/06/16 05:23 Eos # 0.0 K/mm3 (0.0-0.4) 04/06/16 05:23 Baso # 0.0 K/mm3 (0.0-0.1) 04/06/16 05:23 Add Manual Diff Complete 03/25/16 05:56 Total Counted 100 03/25/16 05:56 Seg Neutrophils % 84.6 % (40.0-70.0) H 04/06/16 05:23 Seg Neuts % (Manual) 91.0 % (40.0-70.0) H 03/25/16 05:56 Band Neutrophils % 1.0 % 03/25/16 05:56 Lymphocytes % (Manual) 4.0 % (13.4-35.0) L 03/25/16 05:56 Reactive Lymphs % (Man) 0 % 03/25/16 05:56 Monocytes % (Manual) 4.0 % (0.0-7.3) 03/25/16 05:56 Eosinophils % (Manual) 0 % (0.0-4.3) 03/25/16 05:56 Basophils % (Manual) 0 % (0.0-1.8) 03/25/16 05:56 Metamyelocytes % 0 % 03/25/16 05:56 Myelocytes % 0 % 03/25/16 05:56 Promyelocytes % 0 % 03/25/16 05:56 Blast Cells % 0 % 03/25/16 05:56 Nucleated RBC % Not Reportable 03/25/16 05:56 Seg Neutrophils # 11.0 K/mm3 (1.8-7.7) H 04/06/16 05:23 Seg Neutrophils # Man 19.4 K/mm3 (1.8-7.7) H 03/25/16 05:56 Band Neutrophils # 0.2 K/mm3 03/25/16 05:56 Lymphocytes # (Manual) 0.9 K/mm3 (1.2-5.4) L 03/25/16 05:56 Abs React Lymphs (Man) 0.0 K/mm3 03/25/16 05:56 Monocytes # (Manual) 0.9 K/mm3 (0.0-0.8) H 03/25/16 05:56 Eosinophils # (Manual) 0.0 K/mm3 (0.0-0.4) 03/25/16 05:56 Basophils # (Manual) 0.0 K/mm3 (0.0-0.1) 03/25/16 05:56 Metamyelocytes # 0.0 K/mm3 03/25/16 05:56 Myelocytes # 0.0 K/mm3 03/25/16 05:56 Promyelocytes # 0.0 K/mm3 03/25/16 05:56 Blast Cells # 0.0 K/mm3 03/25/16 05:56 WBC Morphology Not Reportable 03/25/16 05:56 Hypersegmented Neuts Not Reportable 03/25/16 05:56 Hyposegmented Neuts Not Reportable 03/25/16 05:56 Hypogranular Neuts Not Reportable 03/25/16 05:56 Smudge Cells Not Reportable 03/25/16 05:56 Toxic Granulation Not Reportable 03/25/16 05:56 Toxic Vacuolation Not Reportable 03/25/16 05:56 Dohle Bodies Not Reportable 03/25/16 05:56 Pelger-Huet Anomaly Not Reportable 03/25/16 05:56 Corina Rods Not Reportable 03/25/16 05:56 Platelet Estimate Appears normal 03/25/16 05:56 Clumped Platelets Not Reportable 03/25/16 05:56 Plt Clumps, EDTA Not Reportable 03/25/16 05:56 Large Platelets Not Reportable 03/25/16 05:56 Giant Platelets Not Reportable 03/25/16 05:56 Platelet Satelliting Not Reportable 03/25/16 05:56 Plt Morphology Comment Not Reportable 03/25/16 05:56 RBC Morphology Normal 03/25/16 05:56 Dimorphic RBCs Not Reportable 03/25/16 05:56 Polychromasia Not Reportable 03/25/16 05:56 Hypochromasia Not Reportable 03/25/16 05:56 Poikilocytosis Not Reportable 03/25/16 05:56 Anisocytosis Not Reportable 03/25/16 05:56 Microcytosis Not Reportable 03/25/16 05:56 Macrocytosis Not Reportable 03/25/16 05:56 Spherocytes Not Reportable 03/25/16 05:56 Pappenheimer Bodies Not Reportable 03/25/16 05:56 Sickle Cells Not Reportable 03/25/16 05:56 Target Cells Not Reportable 03/25/16 05:56 Tear Drop Cells Not Reportable 03/25/16 05:56 Ovalocytes Not Reportable 03/25/16 05:56 Helmet Cells Not Reportable 03/25/16 05:[address] Bodies Not Reportable 03/25/16 05:56 [place] Rings Not Reportable 03/25/16 05:56 [place] Cells Not Reportable 03/25/16 05:56 Bite Cells Not Reportable 03/25/16 05:56 Crenated Cell Not Reportable 03/25/16 05:56 Elliptocytes Not Reportable 03/25/16 05:56 Acanthocytes (Spur) Not Reportable 03/25/16 05:56 Rouleaux Not Reportable 03/25/16 05:56 Hemoglobin C Crystals Not Reportable 03/25/16 05:56 Schistocytes Not Reportable 03/25/16 05:56 Malaria parasites Not Reportable 03/25/16 05:56 [place] Bodies Not Reportable 03/25/16 05:56 Hem Pathologist Commnt No 03/25/16 05:56 PT 22.5 Sec. (12.2-14.9) H 04/12/16 04:54 INR 1.98 (0.87-1.13) H 04/12/16 04:54 APTT 42.1 Sec. (24.2-36.6) H 04/04/16 09:55 Heparin Anti-Xa Level 0.19 U.I./ml (0.3-0.7) L 04/12/16 04:54 POC ABG pH 7.491 (7.35-7.45) H 04/05/16 05:32 POC ABG pCO2 42.3 (35-45) 04/05/16 05:32 POC ABG pO2 90 (80-105) 04/05/16 05:32 POC ABG HCO3 32.3 04/05/16 05:32 POC ABG Total CO2 34 04/05/16 05:32 POC ABG O2 Sat 98 04/05/16 05:32 POC ABG Base Excess 9 04/05/16 05:32 VBG pH 7.418 (7.320-7.420) 03/24/16 14:00 FiO2 28 % 04/05/16 05:32 Sodium 156 mmol/L (137-145) H 04/12/16 04:54 Potassium 3.7 mmol/L (3.6-5.0) 04/12/16 04:54 Chloride 115.4 mmol/L (98-107) H 04/12/16 04:54 Carbon Dioxide 29 mmol/L (22-30) 04/12/16 04:54 Anion Gap 15 mmol/L 04/12/16 04:54 BUN 23 mg/dL (9-20) H 04/12/16 04:54 Creatinine 1.2 mg/dL (0.8-1.5) 04/12/16 04:54 Estimated GFR > 60 ml/min 04/12/16 04:54 BUN/Creatinine Ratio 19.16 % 04/12/16 04:54 Glucose 143 mg/dL (75-100) H 04/12/16 04:54 POC Glucose 194 (70-105) H 04/12/16 05:57 Hemoglobin A1c 9.6 % (4-6) H 03/24/16 14:00 Lactic Acid 2.8 mmol/L (0.7-2.1) H 03/24/16 15:26 Calcium 8.5 mg/dL (8.4-10.2) 04/12/16 04:54 Phosphorus 2.3 mg/dL (2.5-4.5) L D 03/30/16 04:00 Magnesium 1.9 mg/dL (1.7-2.3) 03/30/16 04:00 Total Bilirubin 0.3 mg/dL (0.1-1.2) 03/24/16 14:00 AST 24 units/L (5-40) 03/24/16 14:00 ALT 38 units/L (7-56) 03/24/16 14:00 Alkaline Phosphatase 77 units/L (35-129) 03/24/16 14:00 Lactate Dehydrogenase 460 units/L (91-180) H 03/25/16 05:56 Total Creatine Kinase 356 units/L (55-170) H 03/28/16 13:29 Troponin T < 0.010 ng/mL (0.00-0.029) 03/28/16 13:29 NT-Pro-B Natriuret Pep 897.9 pg/mL (0-900) 04/03/16 04:10 Serum Total Protein 7.1 g/dL (6.1-8.1) 03/25/16 13:00 Total Protein 7.4 g/dL (6.3-8.2) 03/24/16 14:00 Albumin See scanned report 03/31/16 12:20 Albumin/Globulin Ratio 0.9 % 03/24/16 14:00 Jewsu-2-Bsaxsneqm See scanned report 03/31/16 12:20 Penwq-9-Cgwckfpeg See scanned report 03/31/16 12:20 Beta Globulins See scanned report 03/31/16 12:20 Imrf-0-Wylystnoqjvys 2.46 mg/L (<=2.51) 03/25/16 13:00 Gamma Globulins See scanned report 03/31/16 12:20 Abnorm Protein Band 1 see below (()) 03/25/16 13:00 PEP Interpretation See scanned report 03/31/16 12:20 Triglycerides 88 mg/dL (2-149) 03/24/16 17:58 Cholesterol 221 mg/dL (50-199) H 03/24/16 17:58 LDL Cholesterol Direct 146 mg/dL (50-130) H 03/24/16 17:58 HDL Cholesterol 58 mg/dL (40-59) 03/24/16 17:58 Cholesterol/HDL Ratio 3.81 % 03/24/16 17:58 Urine Color Yellow (Yellow) 03/24/16 14:27 Urine Turbidity Clear (Clear) 03/24/16 14:27 Urine pH 5.0 (5.0-7.0) 03/24/16 14:27 Ur Specific [place] 1.017 (1.003-1.030) 03/24/16 14:27 Urine Protein <15 mg/dl mg/dL (Negative) 03/24/16 14:27 Urine Glucose (UA) >=500 mg/dL (Negative) 03/24/16 14:27 Urine Ketones Neg mg/dL (Negative) 03/24/16 14:27 Urine Blood Sm (Negative) 03/24/16 14:27 Urine Nitrite Neg (Negative) 03/24/16 14:27 Urine Bilirubin Neg (Negative) 03/24/16 14:27 Urine Urobilinogen < 2.0 mg/dL (<2.0) 03/24/16 14:27 Ur Leukocyte Esterase Neg (Negative) 03/24/16 14:27 Urine WBC (Auto) 2.0 /HPF (0.0-6.0) 03/24/16 14:27 Urine RBC (Auto) < 1.0 /HPF (0.0-6.0) 03/24/16 14:27 U Epithel Cells (Auto) 4.0 /HPF (0-13.0) 03/24/16 14:27 Hyaline Casts 1 /LPF 03/24/16 14:27 Urine Mucus Few /HPF 03/24/16 14:27 Ur Random Creatinine See scanned report 03/31/16 12:20 U Random Total Protein See scanned report 03/31/16 12:20 Protein/Creatinin Ratio See scanned report 03/31/16 12:20 U Abnormal Prot Band 1 See scanned report 03/31/16 12:20 U Abnormal Prot Band 2 See scanned report 03/31/16 12:20 U Abnormal Prot Band 3 See scanned report 03/31/16 12:20 Ketones 1.0 mg/dL (0.2-2.8) 03/24/16 14:00
[2016-04-12] MEDS: COUMADIN PO SCH (16:22)
[2016-04-12] MEDS: HEPARIN/ 0.45% NACL-25,000 UNIT/500 ML 500 ML IV SCH (22:09)
[2016-04-12] MEDS: D5W 1,000 ML IV SCH (22:12)
[2016-04-13] MEDS: NOVOLOG SUB-Q SCH ×3 (06:22→18:15)
[2016-04-13 06:25] LABS: INR 2.49 (0.87-1.13)
[2016-04-13 06:45] LABS: Anion Gap 16 mmol/L; BUN/Creatinine Ratio 19.09; Blood Urea Nitrogen 21 mg/dL (9-20); Calcium 8.4 mg/dL (8.4-10.2); Carbon Dioxide 27 mmol/L (22-30); Chloride 110.5 mmol/L (98-107); Glucose 159 mg/dL (75-100); Potassium 3.7 mmol/L (3.6-5.0); Sodium 150 mmol/L (137-145)
[2016-04-13] MEDS: LEVEMIR SUB-Q SCH (09:59)
[2016-04-13] MEDS: ASPIRIN PO SCH (10:00)
[2016-04-13] MEDS: KEPPRA PO SCH ×2 (10:01→22:36)
[2016-04-13] MEDS: ZESTRIL PO SCH ×2 (10:01→22:37)
[2016-04-13] MEDS: CORDARONE PO SCH (10:01)
[2016-04-13] MEDS: PEPCID PO SCH ×2 (10:01→22:36)
[2016-04-13] MEDS: NORVASC PO SCH (10:02)
[2016-04-13] MEDS: NORMODYNE PO SCH ×3 (10:02→22:36)
[2016-04-13] MEDS: D5W 1,000 ML IV SCH ×2 (10:03→22:40)
--- NOTE | 2016-04-13 11:23 | Progress Note ---
Assessment and Plan Assessment and plan: Acute respiratory failure. Was initially intubated, now extubated, transferred from ICU , now in telemetry. Pulmonology following Acute ischemic stroke. CT scan revealed acute ischemic infarct in the right cerebellum. MRI reveals subacute infarct in the right cerebellar hemisphere with associated edema and mass effect as previously described. Patient also with multiple areas of acute infarct in the left occipital and frontal lobes that are most likely embolic. LIZZIE done- No thrombus but decreased flow. Cardiology recommends anticoagulation with Coumadin. INR 2.49. Hypernatremia. Sodium 150. Continue daily BMP. Continue iv fluid 5% Dextrose and free water. Encephalopathy. EEG normal. Accelerated hypertension. Blood pressure improving . CAD-stable, continue current beta em, statin Diabetes mellitus type 2. This is uncontrolled. Increased Levemir to 40 units every morning . History of aortic dissection status post repair. History of prosthetic aortic valve replacement. Echo with normal function on 2015. UTI with Group B strep. Completed ceftriaxone Seizure Disorder. Continue Keppra DVT prophylaxis-On heparin drip, coumadin. GI prophylaxis-Pepcid Disposition:. Discussed with case management. Patient needs custodial facility placement. Discussed with . Patient may need PEG tube. He has been very lethargic so unable to perform swallow eval.he again failed swallow evaluation so needs PEG. agreeable. Discontinue Coumadin in prep for PEG. Consult GI for PEG placement. They may have to wait for INR to be lower or reverse. History Interval history: patient with stroke, encephalopathy, seizure disorder Lethargic but now easily arouseable, failed swallow test today Hospitalist Physical - Physical exam Narrative exam: Gen: Not in acute distress, ill looking HEENT: Normocephalic, atraumatic Neck: supple, Dobhoff tube in nostril, no JVD Lungs clear to auscultation bilaterally, no crackles or wheeze Heart S1-S2 regular, no murmurs, rubs or gallops Abdomen:soft, Nontender, non distended, normal bowel sounds Extremities :no edema, no clubbing or cyanosis Neuro: lethargic,aphasia,dysphagia, more alert, follows commands,easily arouseable - Constitutional Vitals: Temp Pulse Resp BP Pulse Ox 98.4 F 77 22 142/75 100 04/13/16 07:53 04/13/16 10:02 04/13/16 07:53 04/13/16 10:02 04/13/16 10:11 General appearance: Present: no acute distress Results - Labs CBC & Chem 7: 04/14/16 06:02 04/14/16 05:42 Labs: Laboratory Last Values WBC 12.5 K/mm3 (4.5-11.0) H 04/07/16 05:11 RBC 4.44 M/mm3 (3.65-5.03) 04/07/16 05:11 Hgb 11.0 gm/dl (11.8-15.2) L 04/12/16 04:54 Hct 35.0 % (35.5-45.6) L 04/12/16 04:54 MCV 82 fl (84-94) L 04/07/16 05:11 MCH 26 pg (28-32) L 04/07/16 05:11 MCHC 31 % (32-34) L 04/07/16 05:11 RDW 14.7 % (13.2-15.2) 04/07/16 05:11 Plt Count 246 K/mm3 (140-440) 04/12/16 04:54 Lymph % (Auto) 6.7 % (13.4-35.0) L 04/06/16 05:23 [place] % (Auto) 8.3 % (0.0-7.3) H 04/06/16 05:23 Eos % (Auto) 0.1 % (0.0-4.3) 04/06/16 05:23 Baso % (Auto) 0.3 % (0.0-1.8) 04/06/16 05:23 Lymph # 0.9 K/mm3 (1.2-5.4) L 04/06/16 05:23 [place] # 1.1 K/mm3 (0.0-0.8) H 04/06/16 05:23 Eos # 0.0 K/mm3 (0.0-0.4) 04/06/16 05:23 Baso # 0.0 K/mm3 (0.0-0.1) 04/06/16 05:23 Add Manual Diff Complete 03/25/16 05:56 Total Counted 100 03/25/16 05:56 Seg Neutrophils % 84.6 % (40.0-70.0) H 04/06/16 05:23 Seg Neuts % (Manual) 91.0 % (40.0-70.0) H 03/25/16 05:56 Band Neutrophils % 1.0 % 03/25/16 05:56 Lymphocytes % (Manual) 4.0 % (13.4-35.0) L 03/25/16 05:56 Reactive Lymphs % (Man) 0 % 03/25/16 05:56 Monocytes % (Manual) 4.0 % (0.0-7.3) 03/25/16 05:56 Eosinophils % (Manual) 0 % (0.0-4.3) 03/25/16 05:56 Basophils % (Manual) 0 % (0.0-1.8) 03/25/16 05:56 Metamyelocytes % 0 % 03/25/16 05:56 Myelocytes % 0 % 03/25/16 05:56 Promyelocytes % 0 % 03/25/16 05:56 Blast Cells % 0 % 03/25/16 05:56 Nucleated RBC % Not Reportable 03/25/16 05:56 Seg Neutrophils # 11.0 K/mm3 (1.8-7.7) H 04/06/16 05:23 Seg Neutrophils # Man 19.4 K/mm3 (1.8-7.7) H 03/25/16 05:56 Band Neutrophils # 0.2 K/mm3 03/25/16 05:56 Lymphocytes # (Manual) 0.9 K/mm3 (1.2-5.4) L 03/25/16 05:56 Abs React Lymphs (Man) 0.0 K/mm3 03/25/16 05:56 Monocytes # (Manual) 0.9 K/mm3 (0.0-0.8) H 03/25/16 05:56 Eosinophils # (Manual) 0.0 K/mm3 (0.0-0.4) 03/25/16 05:56 Basophils # (Manual) 0.0 K/mm3 (0.0-0.1) 03/25/16 05:56 Metamyelocytes # 0.0 K/mm3 03/25/16 05:56 Myelocytes # 0.0 K/mm3 03/25/16 05:56 Promyelocytes # 0.0 K/mm3 03/25/16 05:56 Blast Cells # 0.0 K/mm3 03/25/16 05:56 WBC Morphology Not Reportable 03/25/16 05:56 Hypersegmented Neuts Not Reportable 03/25/16 05:56 Hyposegmented Neuts Not Reportable 03/25/16 05:56 Hypogranular Neuts Not Reportable 03/25/16 05:56 Smudge Cells Not Reportable 03/25/16 05:56 Toxic Granulation Not Reportable 03/25/16 05:56 Toxic Vacuolation Not Reportable 03/25/16 05:56 Dohle Bodies Not Reportable 03/25/16 05:56 Pelger-Huet Anomaly Not Reportable 03/25/16 05:56 Corina Rods Not Reportable 03/25/16 05:56 Platelet Estimate Appears normal 03/25/16 05:56 Clumped Platelets Not Reportable 03/25/16 05:56 Plt Clumps, EDTA Not Reportable 03/25/16 05:56 Large Platelets Not Reportable 03/25/16 05:56 Giant Platelets Not Reportable 03/25/16 05:56 Platelet Satelliting Not Reportable 03/25/16 05:56 Plt Morphology Comment Not Reportable 03/25/16 05:56 RBC Morphology Normal 03/25/16 05:56 Dimorphic RBCs Not Reportable 03/25/16 05:56 Polychromasia Not Reportable 03/25/16 05:56 Hypochromasia Not Reportable 03/25/16 05:56 Poikilocytosis Not Reportable 03/25/16 05:56 Anisocytosis Not Reportable 03/25/16 05:56 Microcytosis Not Reportable 03/25/16 05:56 Macrocytosis Not Reportable 03/25/16 05:56 Spherocytes Not Reportable 03/25/16 05:56 Pappenheimer Bodies Not Reportable 03/25/16 05:56 Sickle Cells Not Reportable 03/25/16 05:56 Target Cells Not Reportable 03/25/16 05:56 Tear Drop Cells Not Reportable 03/25/16 05:56 Ovalocytes Not Reportable 03/25/16 05:56 Helmet Cells Not Reportable 03/25/16 05:56 Mcgrath-[place] Bodies Not Reportable 03/25/16 05:56 [place] Rings Not Reportable 03/25/16 05:56 [place] Cells Not Reportable 03/25/16 05:56 Bite Cells Not Reportable 03/25/16 05:56 Crenated Cell Not Reportable 03/25/16 05:56 Elliptocytes Not Reportable 03/25/16 05:56 Acanthocytes (Spur) Not Reportable 03/25/16 05:56 Rouleaux Not Reportable 03/25/16 05:56 Hemoglobin C Crystals Not Reportable 03/25/16 05:56 Schistocytes Not Reportable 03/25/16 05:56 Malaria parasites Not Reportable 03/25/16 05:56 Gideon Bodies Not Reportable 03/25/16 05:56 Hem Pathologist Commnt No 03/25/16 05:56 PT 27.0 Sec. (12.2-14.9) H 04/13/16 05:16 INR 2.49 (0.87-1.13) H 04/13/16 05:16 APTT 42.1 Sec. (24.2-36.6) H 04/04/16 09:55 Heparin Anti-Xa Level 0.20 U.I./ml (0.3-0.7) L 04/13/16 05:16 POC ABG pH 7.491 (7.35-7.45) H 04/05/16 05:32 POC ABG pCO2 42.3 (35-45) 04/05/16 05:32 POC ABG pO2 90 (80-105) 04/05/16 05:32 POC ABG HCO3 32.3 04/05/16 05:32 POC ABG Total CO2 34 04/05/16 05:32 POC ABG O2 Sat 98 04/05/16 05:32 POC ABG Base Excess 9 04/05/16 05:32 VBG pH 7.418 (7.320-7.420) 03/24/16 14:00 FiO2 28 % 04/05/16 05:32 Sodium 150 mmol/L (137-145) H 04/13/16 05:16 Potassium 3.7 mmol/L (3.6-5.0) 04/13/16 05:16 Chloride 110.5 mmol/L (98-107) H 04/13/16 05:16 Carbon Dioxide 27 mmol/L (22-30) 04/13/16 05:16 Anion Gap 16 mmol/L 04/13/16 05:16 BUN 21 mg/dL (9-20) H 04/13/16 05:16 Creatinine 1.1 mg/dL (0.8-1.5) 04/13/16 05:16 Estimated GFR > 60 ml/min 04/13/16 05:16 BUN/Creatinine Ratio 19.09 % 04/13/16 05:16 Glucose 159 mg/dL (75-100) H 04/13/16 05:16 POC Glucose 177 (70-105) H 04/13/16 05:28 Hemoglobin A1c 9.6 % (4-6) H 03/24/16 14:00 Lactic Acid 2.8 mmol/L (0.7-2.1) H 03/24/16 15:26 Calcium 8.4 mg/dL (8.4-10.2) 04/13/16 05:16 Phosphorus 2.3 mg/dL (2.5-4.5) L D 03/30/16 04:00 Magnesium 1.9 mg/dL (1.7-2.3) 03/30/16 04:00 Total Bilirubin 0.3 mg/dL (0.1-1.2) 03/24/16 14:00 AST 24 units/L (5-40) 03/24/16 14:00 ALT 38 units/L (7-56) 03/24/16 14:00 Alkaline Phosphatase 77 units/L (35-129) 03/24/16 14:00 Lactate Dehydrogenase 460 units/L (91-180) H 03/25/16 05:56 Total Creatine Kinase 356 units/L (55-170) H 03/28/16 13:29 Troponin T < 0.010 ng/mL (0.00-0.029) 03/28/16 13:29 NT-Pro-B Natriuret Pep 897.9 pg/mL (0-900) 04/03/16 04:10 Serum Total Protein 7.1 g/dL (6.1-8.1) 03/25/16 13:00 Total Protein 7.4 g/dL (6.3-8.2) 03/24/16 14:00 Albumin See scanned report 03/31/16 12:20 Albumin/Globulin Ratio 0.9 % 03/24/16 14:00 Iendy-4-Emdyttpso See scanned report 03/31/16 12:20 Xxeax-7-Upjtzpyzd See scanned report 03/31/16 12:20 Beta Globulins See scanned report 03/31/16 12:20 Yhfa-0-Ocveojidznvwf 2.46 mg/L (<=2.51) 03/25/16 13:00 Gamma Globulins See scanned report 03/31/16 12:20 Abnorm Protein Band 1 see below (()) 03/25/16 13:00 PEP Interpretation See scanned report 03/31/16 12:20 Triglycerides 88 mg/dL (2-149) 03/24/16 17:58 Cholesterol 221 mg/dL (50-199) H 03/24/16 17:58 LDL Cholesterol Direct 146 mg/dL (50-130) H 03/24/16 17:58 HDL Cholesterol 58 mg/dL (40-59) 03/24/16 17:58 Cholesterol/HDL Ratio 3.81 % 03/24/16 17:58 Urine Color Yellow (Yellow) 03/24/16 14:27 Urine Turbidity Clear (Clear) 03/24/16 14:27 Urine pH 5.0 (5.0-7.0) 03/24/16 14:27 Ur Specific [place] 1.017 (1.003-1.030) 03/24/16 14:27 Urine Protein <15 mg/dl mg/dL (Negative) 03/24/16 14:27 Urine Glucose (UA) >=500 mg/dL (Negative) 03/24/16 14:27 Urine Ketones Neg mg/dL (Negative) 03/24/16 14:27 Urine Blood Sm (Negative) 03/24/16 14:27 Urine Nitrite Neg (Negative) 03/24/16 14:27 Urine Bilirubin Neg (Negative) 03/24/16 14:27 Urine Urobilinogen < 2.0 mg/dL (<2.0) 03/24/16 14:27 Ur Leukocyte Esterase Neg (Negative) 03/24/16 14:27 Urine WBC (Auto) 2.0 /HPF (0.0-6.0) 03/24/16 14:27 Urine RBC (Auto) < 1.0 /HPF (0.0-6.0) 03/24/16 14:27 U Epithel Cells (Auto) 4.0 /HPF (0-13.0) 03/24/16 14:27 Hyaline Casts 1 /LPF 03/24/16 14:27 Urine Mucus Few /HPF 03/24/16 14:27 Ur Random Creatinine See scanned report 03/31/16 12:20 U Random Total Protein See scanned report 03/31/16 12:20 Protein/Creatinin Ratio See scanned report 03/31/16 12:20 U Abnormal Prot Band 1 See scanned report 03/31/16 12:20 U Abnormal Prot Band 2 See scanned report 03/31/16 12:20 U Abnormal Prot Band 3 See scanned report 03/31/16 12:20 Ketones 1.0 mg/dL (0.2-2.8) 03/24/16 14:00
[2016-04-14] MEDS: NOVOLOG SUB-Q SCH ×3 (01:19→18:15)
[2016-04-14 06:19] LABS: Hematocrit 36.1 % (35.5-45.6); Hemoglobin 11.4 gm/dl (11.8-15.2); Mean Corpuscular HGB Conc 32 % (32-34); Mean Corpuscular Volume 82 fl (84-94); Platelet Count 208 K/mm3 (140-440); Red Blood Count 4.42 M/mm3 (3.65-5.03); Red Cell Distribution Width 14.9 % (13.2-15.2); White Blood Count 12.3 K/mm3 (4.5-11.0)
[2016-04-14 06:24] LABS: Mean Corpuscular Hemoglobin 26 pg (28-32)
[2016-04-14 06:29] LABS: INR 2.88 (0.87-1.13)
[2016-04-14 06:39] LABS: BUN/Creatinine Ratio 23.75; Blood Urea Nitrogen 19 mg/dL (9-20); Calcium 8.2 mg/dL (8.4-10.2); Carbon Dioxide 27 mmol/L (22-30); Glucose 160 mg/dL (75-100); Potassium 3.5 mmol/L (3.6-5.0); Sodium 144 mmol/L (137-145)
[2016-04-14 06:50] LABS: Anion Gap 17 mmol/L
--- NOTE | 2016-04-14 11:47 | Progress Note ---
Assessment and Plan Assessment and plan: Acute respiratory failure. Was initially intubated, now extubated, transferred from ICU , now in telemetry. Pulmonology following Acute ischemic stroke. CT scan revealed acute ischemic infarct in the right cerebellum. MRI reveals subacute infarct in the right cerebellar hemisphere with associated edema and mass effect as previously described. Patient also with multiple areas of acute infarct in the left occipital and frontal lobes that are most likely embolic. LIZZIE done- No thrombus but decreased flow. Cardiology recommends anticoagulation with Coumadin. INR 2.49. Hypernatremia. Sodium 150. Continue daily BMP. Continue iv fluid 5% Dextrose and free water. Encephalopathy. EEG normal. Accelerated hypertension. Blood pressure improving . CAD-stable, continue current beta em, statin Diabetes mellitus type 2. This is uncontrolled. Increased Levemir to 40 units every morning . History of aortic dissection status post repair. History of prosthetic aortic valve replacement. Echo with normal function on 2015. UTI with Group B strep. Completed ceftriaxone Seizure Disorder. Continue Keppra DVT prophylaxis-On heparin drip, coumadin. GI prophylaxis-Pepcid Disposition:. Discussed with case management. Patient needs fpc facility placement. Discussed with . Patient may need PEG tube. He has been very lethargic so unable to perform swallow eval.he again failed swallow evaluation so needs PEG. agreeable. Discontinue Coumadin in prep for PEG. Consult GI for PEG placement. They may have to wait for INR to be lower or reverse. History Interval history: patient is non verbal, no event overnight Hospitalist Physical - Physical exam Narrative exam: non verbal, no distress noted bed bound MMM s1 s2 Unlabored breathing ABdomen NT ND BS+ extremities no edema does not obey commands, does not move extremities, non verbal, opens eyes spontaneously skin; no rash or lesion - Constitutional Vitals: Temp Pulse Resp BP Pulse Ox 97.4 F L 76 20 152/88 100 04/14/16 08:36 04/14/16 08:36 04/14/16 08:36 04/14/16 08:36 04/14/16 08:50 General appearance: Present: no acute distress Results - Labs CBC & Chem 7: 04/14/16 06:02 04/14/16 05:42 Labs: Laboratory Last Values WBC 12.3 K/mm3 (4.5-11.0) H 04/14/16 06:02 RBC 4.42 M/mm3 (3.65-5.03) 04/14/16 06:02 Hgb 11.4 gm/dl (11.8-15.2) L 04/14/16 06:02 Hct 36.1 % (35.5-45.6) 04/14/16 06:02 MCV 82 fl (84-94) L 04/14/16 06:02 MCH 26 pg (28-32) L 04/14/16 06:02 MCHC 32 % (32-34) 04/14/16 06:02 RDW 14.9 % (13.2-15.2) 04/14/16 06:02 Plt Count 208 K/mm3 (140-440) 04/14/16 06:02 Lymph % (Auto) 6.7 % (13.4-35.0) L 04/06/16 05:23 [place] % (Auto) 8.3 % (0.0-7.3) H 04/06/16 05:23 Eos % (Auto) 0.1 % (0.0-4.3) 04/06/16 05:23 Baso % (Auto) 0.3 % (0.0-1.8) 04/06/16 05:23 Lymph # 0.9 K/mm3 (1.2-5.4) L 04/06/16 05:23 [place] # 1.1 K/mm3 (0.0-0.8) H 04/06/16 05:23 Eos # 0.0 K/mm3 (0.0-0.4) 04/06/16 05:23 Baso # 0.0 K/mm3 (0.0-0.1) 04/06/16 05:23 Add Manual Diff Complete 03/25/16 05:56 Total Counted 100 03/25/16 05:56 Seg Neutrophils % 84.6 % (40.0-70.0) H 04/06/16 05:23 Seg Neuts % (Manual) 91.0 % (40.0-70.0) H 03/25/16 05:56 Band Neutrophils % 1.0 % 03/25/16 05:56 Lymphocytes % (Manual) 4.0 % (13.4-35.0) L 03/25/16 05:56 Reactive Lymphs % (Man) 0 % 03/25/16 05:56 Monocytes % (Manual) 4.0 % (0.0-7.3) 03/25/16 05:56 Eosinophils % (Manual) 0 % (0.0-4.3) 03/25/16 05:56 Basophils % (Manual) 0 % (0.0-1.8) 03/25/16 05:56 Metamyelocytes % 0 % 03/25/16 05:56 Myelocytes % 0 % 03/25/16 05:56 Promyelocytes % 0 % 03/25/16 05:56 Blast Cells % 0 % 03/25/16 05:56 Nucleated RBC % Not Reportable 03/25/16 05:56 Seg Neutrophils # 11.0 K/mm3 (1.8-7.7) H 04/06/16 05:23 Seg Neutrophils # Man 19.4 K/mm3 (1.8-7.7) H 03/25/16 05:56 Band Neutrophils # 0.2 K/mm3 03/25/16 05:56 Lymphocytes # (Manual) 0.9 K/mm3 (1.2-5.4) L 03/25/16 05:56 Abs React Lymphs (Man) 0.0 K/mm3 03/25/16 05:56 Monocytes # (Manual) 0.9 K/mm3 (0.0-0.8) H 03/25/16 05:56 Eosinophils # (Manual) 0.0 K/mm3 (0.0-0.4) 03/25/16 05:56 Basophils # (Manual) 0.0 K/mm3 (0.0-0.1) 03/25/16 05:56 Metamyelocytes # 0.0 K/mm3 03/25/16 05:56 Myelocytes # 0.0 K/mm3 03/25/16 05:56 Promyelocytes # 0.0 K/mm3 03/25/16 05:56 Blast Cells # 0.0 K/mm3 03/25/16 05:56 WBC Morphology Not Reportable 03/25/16 05:56 Hypersegmented Neuts Not Reportable 03/25/16 05:56 Hyposegmented Neuts Not Reportable 03/25/16 05:56 Hypogranular Neuts Not Reportable 03/25/16 05:56 Smudge Cells Not Reportable 03/25/16 05:56 Toxic Granulation Not Reportable 03/25/16 05:56 Toxic Vacuolation Not Reportable 03/25/16 05:56 Dohle Bodies Not Reportable 03/25/16 05:56 Pelger-Huet Anomaly Not Reportable 03/25/16 05:56 Corina Rods Not Reportable 03/25/16 05:56 Platelet Estimate Appears normal 03/25/16 05:56 Clumped Platelets Not Reportable 03/25/16 05:56 Plt Clumps, EDTA Not Reportable 03/25/16 05:56 Large Platelets Not Reportable 03/25/16 05:56 Giant Platelets Not Reportable 03/25/16 05:56 Platelet Satelliting Not Reportable 03/25/16 05:56 Plt Morphology Comment Not Reportable 03/25/16 05:56 RBC Morphology Normal 03/25/16 05:56 Dimorphic RBCs Not Reportable 03/25/16 05:56 Polychromasia Not Reportable 03/25/16 05:56 Hypochromasia Not Reportable 03/25/16 05:56 Poikilocytosis Not Reportable 03/25/16 05:56 Anisocytosis Not Reportable 03/25/16 05:56 Microcytosis Not Reportable 03/25/16 05:56 Macrocytosis Not Reportable 03/25/16 05:56 Spherocytes Not Reportable 03/25/16 05:56 Pappenheimer Bodies Not Reportable 03/25/16 05:56 Sickle Cells Not Reportable 03/25/16 05:56 Target Cells Not Reportable 03/25/16 05:56 Tear Drop Cells Not Reportable 03/25/16 05:56 Ovalocytes Not Reportable 03/25/16 05:56 Helmet Cells Not Reportable 03/25/16 05:56 Mcgrath-[place] Bodies Not Reportable 03/25/16 05:56 [place] Rings Not Reportable 03/25/16 05:56 [place] Cells Not Reportable 03/25/16 05:56 Bite Cells Not Reportable 03/25/16 05:56 Crenated Cell Not Reportable 03/25/16 05:56 Elliptocytes Not Reportable 03/25/16 05:56 Acanthocytes (Spur) Not Reportable 03/25/16 05:56 Rouleaux Not Reportable 03/25/16 05:56 Hemoglobin C Crystals Not Reportable 03/25/16 05:56 Schistocytes Not Reportable 03/25/16 05:56 Malaria parasites Not Reportable 03/25/16 05:56 Gideon Bodies Not Reportable 03/25/16 05:56 Hem Pathologist Commnt No 03/25/16 05:56 PT 30.3 Sec. (12.2-14.9) H 04/14/16 05:42 INR 2.88 (0.87-1.13) H 04/14/16 05:42 APTT 42.1 Sec. (24.2-36.6) H 04/04/16 09:55 Heparin Anti-Xa Level 0.20 U.I./ml (0.3-0.7) L 04/13/16 05:16 POC ABG pH 7.491 (7.35-7.45) H 04/05/16 05:32 POC ABG pCO2 42.3 (35-45) 04/05/16 05:32 POC ABG pO2 90 (80-105) 04/05/16 05:32 POC ABG HCO3 32.3 04/05/16 05:32 POC ABG Total CO2 34 04/05/16 05:32 POC ABG O2 Sat 98 04/05/16 05:32 POC ABG Base Excess 9 04/05/16 05:32 VBG pH 7.418 (7.320-7.420) 03/24/16 14:00 FiO2 28 % 04/05/16 05:32 Sodium 144 mmol/L (137-145) 04/14/16 05:42 Potassium 3.5 mmol/L (3.6-5.0) L 04/14/16 05:42 Chloride 104.0 mmol/L (98-107) 04/14/16 05:42 Carbon Dioxide 27 mmol/L (22-30) 04/14/16 05:42 Anion Gap 17 mmol/L 04/14/16 05:42 BUN 19 mg/dL (9-20) 04/14/16 05:42 Creatinine 0.8 mg/dL (0.8-1.5) 04/14/16 05:42 Estimated GFR > 60 ml/min 04/14/16 05:42 BUN/Creatinine Ratio 23.75 % 04/14/16 05:42 Glucose 160 mg/dL (75-100) H 04/14/16 05:42 POC Glucose 164 (70-105) H 04/14/16 09:18 Hemoglobin A1c 9.6 % (4-6) H 03/24/16 14:00 Lactic Acid 2.8 mmol/L (0.7-2.1) H 03/24/16 15:26 Calcium 8.2 mg/dL (8.4-10.2) L 04/14/16 05:42 Phosphorus 2.3 mg/dL (2.5-4.5) L D 03/30/16 04:00 Magnesium 1.9 mg/dL (1.7-2.3) 03/30/16 04:00 Total Bilirubin 0.3 mg/dL (0.1-1.2) 03/24/16 14:00 AST 24 units/L (5-40) 03/24/16 14:00 ALT 38 units/L (7-56) 03/24/16 14:00 Alkaline Phosphatase 77 units/L (35-129) 03/24/16 14:00 Lactate Dehydrogenase 460 units/L (91-180) H 03/25/16 05:56 Total Creatine Kinase 356 units/L (55-170) H 03/28/16 13:29 Troponin T < 0.010 ng/mL (0.00-0.029) 03/28/16 13:29 NT-Pro-B Natriuret Pep 897.9 pg/mL (0-900) 04/03/16 04:10 Serum Total Protein 7.1 g/dL (6.1-8.1) 03/25/16 13:00 Total Protein 7.4 g/dL (6.3-8.2) 03/24/16 14:00 Albumin See scanned report 03/31/16 12:20 Albumin/Globulin Ratio 0.9 % 03/24/16 14:00 Kjjsh-5-Gqhbzegmv See scanned report 03/31/16 12:20 Rlnmd-4-Qjdkqorxn See scanned report 03/31/16 12:20 Beta Globulins See scanned report 03/31/16 12:20 Gpej-4-Xmfezffbmzzje 2.46 mg/L (<=2.51) 03/25/16 13:00 Gamma Globulins See scanned report 03/31/16 12:20 Abnorm Protein Band 1 see below (()) 03/25/16 13:00 PEP Interpretation See scanned report 03/31/16 12:20 Triglycerides 88 mg/dL (2-149) 03/24/16 17:58 Cholesterol 221 mg/dL (50-199) H 03/24/16 17:58 LDL Cholesterol Direct 146 mg/dL (50-130) H 03/24/16 17:58 HDL Cholesterol 58 mg/dL (40-59) 03/24/16 17:58 Cholesterol/HDL Ratio 3.81 % 03/24/16 17:58 Urine Color Yellow (Yellow) 03/24/16 14:27 Urine Turbidity Clear (Clear) 03/24/16 14:27 Urine pH 5.0 (5.0-7.0) 03/24/16 14:27 Ur Specific [place] 1.017 (1.003-1.030) 03/24/16 14:27 Urine Protein <15 mg/dl mg/dL (Negative) 03/24/16 14:27 Urine Glucose (UA) >=500 mg/dL (Negative) 03/24/16 14:27 Urine Ketones Neg mg/dL (Negative) 03/24/16 14:27 Urine Blood Sm (Negative) 03/24/16 14:27 Urine Nitrite Neg (Negative) 03/24/16 14:27 Urine Bilirubin Neg (Negative) 03/24/16 14:27 Urine Urobilinogen < 2.0 mg/dL (<2.0) 03/24/16 14:27 Ur Leukocyte Esterase Neg (Negative) 03/24/16 14:27 Urine WBC (Auto) 2.0 /HPF (0.0-6.0) 03/24/16 14:27 Urine RBC (Auto) < 1.0 /HPF (0.0-6.0) 03/24/16 14:27 U Epithel Cells (Auto) 4.0 /HPF (0-13.0) 03/24/16 14:27 Hyaline Casts 1 /LPF 03/24/16 14:27 Urine Mucus Few /HPF 03/24/16 14:27 Ur Random Creatinine See scanned report 03/31/16 12:20 U Random Total Protein See scanned report 03/31/16 12:20 Protein/Creatinin Ratio See scanned report 03/31/16 12:20 U Abnormal Prot Band 1 See scanned report 03/31/16 12:20 U Abnormal Prot Band 2 See scanned report 03/31/16 12:20 U Abnormal Prot Band 3 See scanned report 03/31/16 12:20 Ketones 1.0 mg/dL (0.2-2.8) 03/24/16 14:00
[2016-04-14] MEDS: D5W 1,000 ML IV SCH (12:18)
[2016-04-14] MEDS: PEPCID PO SCH ×2 (12:18→22:54)
[2016-04-14] MEDS: KEPPRA PO SCH ×2 (12:18→22:54)
[2016-04-14] MEDS: CORDARONE PO SCH (12:19)
[2016-04-14] MEDS: NORVASC PO SCH (12:19)
[2016-04-14] MEDS: LEVEMIR SUB-Q SCH (12:19)
[2016-04-14] MEDS: ZESTRIL PO SCH ×2 (12:19→22:55)
[2016-04-14] MEDS: NORMODYNE PO SCH ×2 (12:23→22:54)
[2016-04-14] MEDS: BABY ASPIRIN PO SCH (12:23)
[2016-04-14] MEDS: TYLENOL PO PRN (12:28)
--- NOTE | 2016-04-14 12:48 | Gastroenterology Consultation ---
<CRISS MAGANA - Last Filed: 04/14/16 12:43> History of Present Illness - Reason for Consult Consult date: 04/14/16 PEG placement Requesting physician: CARLITA GUTIERREZ - History of Present Illness Mr. Alvarez is a 61 y/o male with an extended hospitalization admitted for acute CVA, thought ot be embolic. LIZZIE did not show thrombus and cardiology recommended anticoagulation with Coumadin. The patient has failed swallow eval wtih recommendations of NPO and ad terminal makeup operator alternative feeding plan. The patient is not able to give information and no family at bedside, so I am no clear as to his baseline. Currently, Coumadin has been discontinued and the patient is on a Heparin gtt. PMH significant for CAD, DM, aortic dissection with valve replacement, seizures and HTN. Past History Past Medical History: CAD, diabetes, hypertension, hyperlipidemia, renal failure , seizures, other (bioprosthetic aortic valve, aortic dissection; obtained per chart review) Past Surgical History: Other (bioprosthetic aortic valve replacement, aortic dissection repair 2; obtained per chart review) Social history: other (unable to obtain due to patient's mental status). denies : smoking Family history: other (unable to obtain due to patient's mental status) Medications and Allergies Allergies Allergy/AdvReac Type Severity Reaction Status Date / Time No Known Allergies Allergy Unverified 05/19/13 09:32 Home Medications Medication Instructions Recorded Confirmed Last Taken Type Amiodarone [Cordarone 200 MG TAB] 200 mg PO DAILY #30 tablet 05/07/15 03/24/16 Unknown Rx AtorvaSTATin [Lipitor] 10 mg PO QHS tablet 05/07/15 03/24/16 Unknown Rx Famotidine [Pepcid] 20 mg PO BID tablet 05/07/15 03/24/16 Unknown Rx Insulin Glargine [Lantus VIAL] 30 units SUB-Q QHS units 05/07/15 03/24/16 Unknown Rx Labetalol [Normodyne TAB] 300 mg PO BID #60 tablet 05/07/15 03/24/16 Unknown Rx QUEtiapine [SEROquel] 25 mg PO BID #60 tablet 05/07/15 03/24/16 Unknown Rx cloNIDine [Catapres] 0.2 mg PO TID #90 tablet 05/07/15 03/24/16 Unknown Rx levETIRAcetam [Keppra TAB] 500 mg PO BID #60 tablet 05/07/15 03/24/16 Unknown Rx metFORMIN [Glucophage] 500 mg PO BID #60 tablet 05/07/15 03/24/16 Unknown Rx Lisinopril [Zestril TAB] 40 mg PO BID 09/23/15 03/24/16 Unknown History NIFEdipine 60 mg PO DAILY 09/23/15 03/24/16 Unknown History Prazosin [Minipress] 5 mg PO BID 09/23/15 03/24/16 Unknown History glipiZIDE [glipiZIDE ER] 5 mg PO QAM 09/23/15 03/24/16 Unknown History Carvedilol [Coreg] 3.125 mg PO BID #60 tablet 09/24/15 03/24/16 Unknown Rx Active Meds: Active Medications Acetaminophen (Tylenol) 650 mg PO Q4H PRN PRN Reason: Pain MILD(1-3)/Fever >100.5/DUVAL Last Admin: 04/14/16 12:28 Dose: 650 mg Amiodarone HCl (Cordarone) 200 mg PO DAILY [facility] Last Admin: 04/14/16 12:19 Dose: 200 mg Amlodipine Besylate (Norvasc) 10 mg PO DAILY [facility] Last Admin: 04/14/16 12:19 Dose: 10 mg Lipase/Protease/Amylase (Pancreaze Dr 10,500 Unit) 1 each FEEDTUBE PRN PRN PRN Reason: For Clogged Feeding Tube Aspirin (Baby Aspirin) 81 mg PO QDAY [facility] Last Admin: 04/14/16 12:23 Dose: 81 mg Atorvastatin Calcium (Lipitor) 10 mg PO QHS [facility] Last Admin: 04/13/16 22:36 Dose: 10 mg Bisacodyl (Dulcolax) 10 mg [place] QDAY PRN PRN Reason: Constipation unrelieved by MOM Dextrose (D50w (25gm)) 50 ml IV PRN PRN PRN Reason: Hypoglycemia Last Admin: 04/06/16 06:30 Dose: 50 ml Famotidine (Pepcid) 20 mg PO BID [facility] Last Admin: 04/14/16 12:18 Dose: 20 mg Hydralazine HCl (Apresoline) 20 mg IV Q6H PRN PRN Reason: PRN SBP > 150 Last Admin: 04/07/16 12:52 Dose: 20 mg Hydrophilic Ointment (Vaseline Lip Therapy) 1 applic TP Q2HR PRN PRN Reason: Dry Lips Dextrose (D5w) 1,000 mls @ 75 mls/hr IV DIRECT [facility] Last Admin: 04/14/16 12:18 Dose: 75 mls/hr Heparin Sodium/Sodium Chloride (Heparin/ 0.45% Nacl-25,000 Unit/500 Ml) 500 mls @ 18 mls/hr IV TITRATE ANA LUISA; 900 UNITS/HR PRN Reason: Protocol Insulin Aspart (Novolog) 0 units SUB-Q Q6HR ANA LUISA PRN Reason: Protocol Last Admin: 04/14/16 06:23 Dose: 2 units Insulin Detemir (Levemir) 40 units SUB-Q QAMDIAB [facility] Last Admin: 04/14/16 12:19 Dose: 40 units Labetalol HCl (Normodyne) 400 mg PO TID [facility] Last Admin: 04/14/16 12:23 Dose: 400 mg Levetiracetam (Keppra) 500 mg PO BID [facility] Last Admin: 04/14/16 12:18 Dose: 500 mg Lisinopril (Zestril) 40 mg PO BID [facility] Last Admin: 04/14/16 12:19 Dose: 40 mg Magnesium Hydroxide (Milk Of Magnesia) 30 ml PO Q4H PRN PRN Reason: Constipation Last Admin: 03/31/16 20:01 Dose: 30 ml Metoclopramide HCl (Reglan) 5 mg IV Q6H PRN PRN Reason: TUBE FEED RESIDUAL Last Admin: 04/01/16 05:36 Dose: 5 mg Multi-Ingred Cream/Lotion/Oil/Oint (Artificial Tears Ophth Oint) 1 applic OU Q4HR PRN PRN Reason: Dry Eye(s) Ondansetron HCl (Zofran) 4 mg IV Q8H PRN PRN Reason: N/V unrelieved by Reglan Last Admin: 04/01/16 23:25 Dose: 4 mg Simple Syrup (Simple Syrup) 15 ml FEEDTUBE PRN PRN PRN Reason: Hypoglycemia Simple Syrup (Simple Syrup) 30 ml FEEDTUBE PRN PRN PRN Reason: Hypoglycemia Sodium Bicarbonate (Sodium Bicarbonate) 325 mg FEEDTUBE PRN PRN PRN Reason: For Clogged Feeding Tube Warfarin Sodium (Coumadin Pharmacy To Dose) 1 each PO PKCONSULT ANA LUISA PRN Reason: Protocol Review of Systems - Review of Systems ROS unobtainable: due to mental status Exam - Constitutional Vital Signs: Temp Pulse Resp BP Pulse Ox 97.4 F L 76 20 152/88 100 04/14/16 08:36 04/14/16 08:36 04/14/16 08:36 04/14/16 08:36 04/14/16 08:50 General appearance: no acute distress, other (nonverbal. Unalbe to give information) - Neck Neck: supple - Respiratory Respiratory: bilateral: diminished (nonproductive cough) - Cardiovascular Rhythm: regular Heart Sounds: Present: S1 & S2 Extremities: abnormal (right side upper contracture?/weakness) - Gastrointestinal General gastrointestinal: Present: non-tender, normal bowel sounds, other ( mildly firm) - Integumentary Integumentary: Present: warm, dry - Neurologic Neurological: other (alert) - Psychiatric Psychiatric: cooperative - Labs CBC & Chem 7: 04/14/16 06:02 04/14/16 05:42 Lab Results: Laboratory Results - last 24 hr 04/13/16 04/13/16 04/14/16 11:30 17:54 00:44 WBC RBC Hgb Hct MCV MCH MCHC RDW Plt Count PT INR Sodium Potassium Chloride Carbon Dioxide Anion Gap BUN Creatinine Estimated GFR BUN/Creatinine Ratio Glucose POC Glucose 181 H 251 H 237 H Calcium 04/14/16 04/14/16 04/14/16 05:42 05:42 06:02 WBC 12.3 H RBC 4.42 Hgb 11.4 L Hct 36.1 MCV 82 L MCH 26 L MCHC 32 RDW 14.9 Plt Count 208 PT 30.3 H INR 2.88 H Sodium 144 Potassium 3.5 L Chloride 104.0 Carbon Dioxide 27 Anion Gap 17 BUN 19 Creatinine 0.8 Estimated GFR > 60 BUN/Creatinine Ratio 23.75 Glucose 160 H POC Glucose Calcium 8.2 L 04/14/16 04/14/16 06:16 09:18 WBC RBC Hgb Hct MCV MCH MCHC RDW Plt Count PT INR Sodium Potassium Chloride Carbon Dioxide Anion Gap BUN Creatinine Estimated GFR BUN/Creatinine Ratio Glucose POC Glucose 156 H 164 H Calcium Assessment and Plan 1. Dysphagia 2. Acute CVA 3.Hypernatremia- resolved 4. DM 5. UTI-group B strep-resolved. -Patient unable to pass swallow eval with AMS. MEDICAL CARE ADMINISTRATOR has recommended PEG placement. -Currently on Heparin gtt with Coumadin recently stopped. INR 2.88 today -Patient has a mechanical aortic valve, therefore would not reverse anticoagulation -Allow INR to trend down prior to procedure. -INR will need to be 1.5 or below for PEG placement -In the interim, DH for TF/medications -Will follow chart for INR daily. Once INR is within an appropriate range, will arrange for PEG placement if is agreeable. <MASSIMO GALLAGHER - Last Filed: 04/14/16 15:19> Medications and Allergies Active Meds: Active Medications Acetaminophen (Tylenol) 650 mg PO Q4H PRN PRN Reason: Pain MILD(1-3)/Fever >100.5/DUVAL Last Admin: 04/14/16 12:28 Dose: 650 mg Amiodarone HCl (Cordarone) 200 mg PO DAILY [facility] Last Admin: 04/14/16 12:19 Dose: 200 mg Amlodipine Besylate (Norvasc) 10 mg PO DAILY [facility] Last Admin: 04/14/16 12:19 Dose: 10 mg Lipase/Protease/Amylase (Pancreaze Dr 10,500 Unit) 1 each FEEDTUBE PRN PRN PRN Reason: For Clogged Feeding Tube Aspirin (Baby Aspirin) 81 mg PO QDAY [facility] Last Admin: 04/14/16 12:23 Dose: 81 mg Atorvastatin Calcium (Lipitor) 10 mg PO QHS [facility] Last Admin: 04/13/16 22:36 Dose: 10 mg Bisacodyl (Dulcolax) 10 mg [place] QDAY PRN PRN Reason: Constipation unrelieved by MOM Dextrose (D50w (25gm)) 50 ml IV PRN PRN PRN Reason: Hypoglycemia Last Admin: 04/06/16 06:30 Dose: 50 ml Famotidine (Pepcid) 20 mg PO BID [facility] Last Admin: 04/14/16 12:18 Dose: 20 mg Hydralazine HCl (Apresoline) 20 mg IV Q6H PRN PRN Reason: PRN SBP > 150 Last Admin: 04/07/16 12:52 Dose: 20 mg Hydrophilic Ointment (Vaseline Lip Therapy) 1 applic TP Q2HR PRN PRN Reason: Dry Lips Dextrose (D5w) 1,000 mls @ 75 mls/hr IV DIRECT [facility] Last Admin: 04/14/16 12:18 Dose: 75 mls/hr Heparin Sodium/Sodium Chloride (Heparin/ 0.45% Nacl-25,000 Unit/500 Ml) 500 mls @ 18 mls/hr IV TITRATE ANA LUISA; 900 UNITS/HR PRN Reason: Protocol Insulin Aspart (Novolog) 0 units SUB-Q Q6HR [facility] PRN Reason: Protocol Last Admin: 04/14/16 06:23 Dose: 2 units Insulin Detemir (Levemir) 40 units SUB-Q QAMDIAB [facility] Last Admin: 04/14/16 12:19 Dose: 40 units Labetalol HCl (Normodyne) 400 mg PO TID [facility] Last Admin: 04/14/16 12:23 Dose: 400 mg Levetiracetam (Keppra) 500 mg PO BID [facility] Last Admin: 04/14/16 12:18 Dose: 500 mg Lisinopril (Zestril) 40 mg PO BID [facility] Last Admin: 04/14/16 12:19 Dose: 40 mg Magnesium Hydroxide (Milk Of Magnesia) 30 ml PO Q4H PRN PRN Reason: Constipation Last Admin: 03/31/16 20:01 Dose: 30 ml Metoclopramide HCl (Reglan) 5 mg IV Q6H PRN PRN Reason: TUBE FEED RESIDUAL Last Admin: 04/01/16 05:36 Dose: 5 mg Multi-Ingred Cream/Lotion/Oil/Oint (Artificial Tears Ophth Oint) 1 applic OU Q4HR PRN PRN Reason: Dry Eye(s) Ondansetron HCl (Zofran) 4 mg IV Q8H PRN PRN Reason: N/V unrelieved by Reglan Last Admin: 04/01/16 23:25 Dose: 4 mg Simple Syrup (Simple Syrup) 15 ml FEEDTUBE PRN PRN PRN Reason: Hypoglycemia Simple Syrup (Simple Syrup) 30 ml FEEDTUBE PRN PRN PRN Reason: Hypoglycemia Sodium Bicarbonate (Sodium Bicarbonate) 325 mg FEEDTUBE PRN PRN PRN Reason: For Clogged Feeding Tube Warfarin Sodium (Coumadin Pharmacy To Dose) 1 each PO PKCONSULT [facility] PRN Reason: Protocol Exam - Constitutional Vital Signs: Temp Pulse Resp BP Pulse Ox 97.3 F L 88 22 164/98 93 04/14/16 14:30 04/14/16 14:30 04/14/16 14:30 04/14/16 14:30 04/14/16 14:30 - Labs CBC & Chem 7: 04/14/16 06:02 04/14/16 05:42 Lab Results: Laboratory Results - last 24 hr 04/13/16 04/13/16 04/14/16 11:30 17:54 00:44 WBC RBC Hgb Hct MCV MCH MCHC RDW Plt Count PT INR Sodium Potassium Chloride Carbon Dioxide Anion Gap BUN Creatinine Estimated GFR BUN/Creatinine Ratio Glucose POC Glucose 181 H 251 H 237 H Calcium 04/14/16 04/14/16 04/14/16 05:42 05:42 06:02 WBC 12.3 H RBC 4.42 Hgb 11.4 L Hct 36.1 MCV 82 L MCH 26 L MCHC 32 RDW 14.9 Plt Count 208 PT 30.3 H INR 2.88 H Sodium 144 Potassium 3.5 L Chloride 104.0 Carbon Dioxide 27 Anion Gap 17 BUN 19 Creatinine 0.8 Estimated GFR > 60 BUN/Creatinine Ratio 23.75 Glucose 160 H POC Glucose Calcium 8.2 L 04/14/16 04/14/16 04/14/16 06:16 09:18 13:58 WBC RBC Hgb Hct MCV MCH MCHC RDW Plt Count PT INR Sodium Potassium Chloride Carbon Dioxide Anion Gap BUN Creatinine Estimated GFR BUN/Creatinine Ratio Glucose POC Glucose 156 H 164 H 109 H Calcium Assessment and Plan GI Attending: I have performed a face to face evaluation on Mr. Alvarez and agree with the above note of Anjali Magana NP. He is an appropriate candidate for PEG, but we will need to allow the INR to drift down gradually, given the mechanical AVR. Once <1.5, will plan for PEG.
--- NOTE | 2016-04-14 15:01 | XRay Report ---
Flatplate of the abdomen: History: Dobbhoff tube placement. Findings: Tip of Dobbhoff feeding tube is noted in distal stomach. No bowel distention or wall thickening. Impression: Tip of Dobbhoff feeding tube in the stomach.
[2016-04-14] MEDS: HEPARIN/ 0.45% NACL-25,000 UNIT/500 ML 500 ML IV SCH (20:10)
[2016-04-15] MEDS: NOVOLOG SUB-Q SCH ×5 (02:34→18:27)
[2016-04-15] MEDS: D5W 1,000 ML IV SCH ×2 (02:52→16:54)
[2016-04-15] MEDS: NORMODYNE PO SCH ×4 (06:15→21:21)
[2016-04-15 07:01] LABS: INR 2.25 (0.87-1.13)
[2016-04-15] MEDS: LEVEMIR SUB-Q SCH (08:33)
[2016-04-15] MEDS: CORDARONE PO SCH (10:28)
[2016-04-15] MEDS: BABY ASPIRIN PO SCH (10:28)
[2016-04-15] MEDS: KEPPRA PO SCH ×2 (10:29→21:21)
[2016-04-15] MEDS: NORVASC PO SCH (10:29)
[2016-04-15] MEDS: ZESTRIL PO SCH ×2 (10:30→21:21)
[2016-04-15] MEDS: PEPCID PO SCH ×2 (10:30→21:21)
[2016-04-16] MEDS: NOVOLOG SUB-Q SCH ×3 (01:51→13:00)
[2016-04-16] MEDS: D5W 1,000 ML IV SCH ×2 (06:26→22:48)
[2016-04-16 08:12] LABS: INR 1.64 (0.87-1.13)
[2016-04-16] MEDS: LEVEMIR SUB-Q SCH (09:00)
--- NOTE | 2016-04-16 09:48 | XRay Report ---
ABDOMEN RADIOGRAPH INDICATION: Dobbhoff placement. COMPARISON: 04/14/2016 FINDINGS: Frontal thoracoabdominal radiograph again demonstrates Dobbhoff tube tip about the gastric antrum, though now projecting about L3-L4 disc level. EKG leads and motion artifact. Grossly nonobstructive bowel gas pattern with right hemiabdomen/ascending colon stool. Clear imaged lungs with sternotomy wires and prosthetic heart valve. CONCLUSION: Findings, as above. Thank you for the opportunity to participate in this patient's care.
[2016-04-16] MEDS: KEPPRA PO SCH (11:00)
[2016-04-16] MEDS: CORDARONE PO SCH (11:01)
[2016-04-16] MEDS: PEPCID PO SCH (11:01)
[2016-04-16] MEDS: NORMODYNE PO SCH ×2 (11:01→15:18)
[2016-04-16] MEDS: NORVASC PO SCH (11:02)
[2016-04-16] MEDS: BABY ASPIRIN PO SCH (11:03)
[2016-04-16] MEDS: ZESTRIL PO SCH (11:20)
[2016-04-16] MEDS: HEPARIN/ 0.45% NACL-25,000 UNIT/500 ML 500 ML IV SCH (11:21)
--- NOTE | 2016-04-16 11:43 | Event Note ---
Date: 04/16/16 Pts INR down to 1.64 today. Currently on Heparin gtt and tube feeds infusing. Would appear that INR should be <1.5 tomorrow, so would recommend holding tube feeds after midnight and hold Heparin drip tomorrow AM at 3AM. D/W RN.
[2016-04-16] MEDS ORDERED: NACL 0.9% 500 ML 500 ML ONE (17:39)
[2016-04-16] MEDS ORDERED: VERSED IV ONE (17:45)
[2016-04-16] MEDS ORDERED: QUELICIN ONE (17:45)
[2016-04-16] MEDS ORDERED: XYLOCAINE CARDIAC IV ONE (17:45)
--- NOTE | 2016-04-16 18:09 | Event Note ---
EDMD "CODE BLUE" note I was called to the floor for a cold blue. Upon my arrival was informed by nursing that the patient never lost his pulse was simply developed agonal respirations and appeared to be "posturing." The patient was unresponsive and subsequently intubated by myself. Case was discussed with Dr. Millan at bedside. Patient left in the care of Dr. Millan after intubation The patient was intubated via orotracheal route using a 7.5 mm endotracheal tube. Rapid sequence induction was used realizing lidocaine 100 mg IV, succinylcholine 100 mg IV, Versed 5 mg IV. Positioning was confirmed using auscultation and CO2 detector. Post intubation chest xray was ordered.
[2016-04-16 18:17] LABS: ISTAT Base Excess 0; ISTAT HCO3 22.7; ISTAT PCO2 26.3 (35-45); ISTAT PH 7.543 (7.35-7.45); ISTAT PO2 55 (80-105); ISTAT SO2 92; ISTAT TCO2 23
[2016-04-16] MEDS ORDERED: DUONEB 0.5 MG-3 MG/3 ML SOLN IH PRN (18:17)
[2016-04-16] MEDS ORDERED: ARTIFICIAL TEARS OPHTH OINT OU PRN (18:19)
[2016-04-16] MEDS ORDERED: VASELINE LIP THERAPY TP PRN (18:19)
[2016-04-16] MEDS ORDERED: LEVOPHED DRIP 4 MG/NS 250 ML 250 ML IV ONE (18:38)
--- NOTE | 2016-04-16 18:53 | Progress Note ---
Assessment and Plan Assessment and plan: Acute respiratory failure. Was initially intubated, now extubated, transferred from ICU , now in telemetry. Pulmonology following Acute ischemic stroke. CT scan revealed acute ischemic infarct in the right cerebellum. MRI reveals subacute infarct in the right cerebellar hemisphere with associated edema and mass effect as previously described. Patient also with multiple areas of acute infarct in the left occipital and frontal lobes that are most likely embolic. LIZZIE done- No thrombus but decreased flow. Cardiology recommends anticoagulation with Coumadin. INR 2.49. Hypernatremia. Sodium 150. Continue daily BMP. Continue iv fluid 5% Dextrose and free water. Encephalopathy. EEG normal. Accelerated hypertension. Blood pressure improving . CAD-stable, continue current beta em, statin Diabetes mellitus type 2. This is uncontrolled. Increased Levemir to 40 units every morning . History of aortic dissection status post repair. History of prosthetic aortic valve replacement. Echo with normal function on 2015. UTI with Group B strep. Completed ceftriaxone Seizure Disorder. Continue Keppra DVT prophylaxis-On heparin drip, coumadin. GI prophylaxis-Pepcid Disposition:. Discussed with case management. Patient needs fdc facility placement. Discussed with . Patient may need PEG tube. He has been very lethargic so unable to perform swallow eval.he again failed swallow evaluation so needs PEG. agreeable. Discontinue Coumadin in prep for PEG. Consult GI for PEG placement. They may have to wait for INR to be lower or reverse. History Interval history: patient is non verbal, no event overnight Hospitalist Physical - Physical exam Narrative exam: non verbal, no distress noted bed bound MMM s1 s2 Unlabored breathing ABdomen NT ND BS+ extremities no edema does not obey commands, does not move extremities, non verbal, opens eyes spontaneously skin; no rash or lesion - Constitutional Vitals: Temp Pulse Resp BP Pulse Ox 98.2 F 90 28 H 94/56 95 04/16/16 15:09 04/16/16 18:20 04/16/16 15:09 04/16/16 18:20 04/16/16 18:20 General appearance: Present: no acute distress Results - Labs CBC & Chem 7: 04/14/16 06:02 04/14/16 05:42 Labs: Laboratory Last Values WBC 12.3 K/mm3 (4.5-11.0) H 04/14/16 06:02 RBC 4.42 M/mm3 (3.65-5.03) 04/14/16 06:02 Hgb 11.4 gm/dl (11.8-15.2) L 04/14/16 06:02 Hct 36.1 % (35.5-45.6) 04/14/16 06:02 MCV 82 fl (84-94) L 04/14/16 06:02 MCH 26 pg (28-32) L 04/14/16 06:02 MCHC 32 % (32-34) 04/14/16 06:02 RDW 14.9 % (13.2-15.2) 04/14/16 06:02 Plt Count 208 K/mm3 (140-440) 04/14/16 06:02 Lymph % (Auto) 6.7 % (13.4-35.0) L 04/06/16 05:23 [place] % (Auto) 8.3 % (0.0-7.3) H 04/06/16 05:23 Eos % (Auto) 0.1 % (0.0-4.3) 04/06/16 05:23 Baso % (Auto) 0.3 % (0.0-1.8) 04/06/16 05:23 Lymph # 0.9 K/mm3 (1.2-5.4) L 04/06/16 05:23 Powell # 1.1 K/mm3 (0.0-0.8) H 04/06/16 05:23 Eos # 0.0 K/mm3 (0.0-0.4) 04/06/16 05:23 Baso # 0.0 K/mm3 (0.0-0.1) 04/06/16 05:23 Add Manual Diff Complete 03/25/16 05:56 Total Counted 100 03/25/16 05:56 Seg Neutrophils % 84.6 % (40.0-70.0) H 04/06/16 05:23 Seg Neuts % (Manual) 91.0 % (40.0-70.0) H 03/25/16 05:56 Band Neutrophils % 1.0 % 03/25/16 05:56 Lymphocytes % (Manual) 4.0 % (13.4-35.0) L 03/25/16 05:56 Reactive Lymphs % (Man) 0 % 03/25/16 05:56 Monocytes % (Manual) 4.0 % (0.0-7.3) 03/25/16 05:56 Eosinophils % (Manual) 0 % (0.0-4.3) 03/25/16 05:56 Basophils % (Manual) 0 % (0.0-1.8) 03/25/16 05:56 Metamyelocytes % 0 % 03/25/16 05:56 Myelocytes % 0 % 03/25/16 05:56 Promyelocytes % 0 % 03/25/16 05:56 Blast Cells % 0 % 03/25/16 05:56 Nucleated RBC % Not Reportable 03/25/16 05:56 Seg Neutrophils # 11.0 K/mm3 (1.8-7.7) H 04/06/16 05:23 Seg Neutrophils # Man 19.4 K/mm3 (1.8-7.7) H 03/25/16 05:56 Band Neutrophils # 0.2 K/mm3 03/25/16 05:56 Lymphocytes # (Manual) 0.9 K/mm3 (1.2-5.4) L 03/25/16 05:56 Abs React Lymphs (Man) 0.0 K/mm3 03/25/16 05:56 Monocytes # (Manual) 0.9 K/mm3 (0.0-0.8) H 03/25/16 05:56 Eosinophils # (Manual) 0.0 K/mm3 (0.0-0.4) 03/25/16 05:56 Basophils # (Manual) 0.0 K/mm3 (0.0-0.1) 03/25/16 05:56 Metamyelocytes # 0.0 K/mm3 03/25/16 05:56 Myelocytes # 0.0 K/mm3 03/25/16 05:56 Promyelocytes # 0.0 K/mm3 03/25/16 05:56 Blast Cells # 0.0 K/mm3 03/25/16 05:56 WBC Morphology Not Reportable 03/25/16 05:56 Hypersegmented Neuts Not Reportable 03/25/16 05:56 Hyposegmented Neuts Not Reportable 03/25/16 05:56 Hypogranular Neuts Not Reportable 03/25/16 05:56 Smudge Cells Not Reportable 03/25/16 05:56 Toxic Granulation Not Reportable 03/25/16 05:56 Toxic Vacuolation Not Reportable 03/25/16 05:56 Dohle Bodies Not Reportable 03/25/16 05:56 Pelger-Huet Anomaly Not Reportable 03/25/16 05:56 Corina Rods Not Reportable 03/25/16 05:56 Platelet Estimate Appears normal 03/25/16 05:56 Clumped Platelets Not Reportable 03/25/16 05:56 Plt Clumps, EDTA Not Reportable 03/25/16 05:56 Large Platelets Not Reportable 03/25/16 05:56 Giant Platelets Not Reportable 03/25/16 05:56 Platelet Satelliting Not Reportable 03/25/16 05:56 Plt Morphology Comment Not Reportable 03/25/16 05:56 RBC Morphology Normal 03/25/16 05:56 Dimorphic RBCs Not Reportable 03/25/16 05:56 Polychromasia Not Reportable 03/25/16 05:56 Hypochromasia Not Reportable 03/25/16 05:56 Poikilocytosis Not Reportable 03/25/16 05:56 Anisocytosis Not Reportable 03/25/16 05:56 Microcytosis Not Reportable 03/25/16 05:56 Macrocytosis Not Reportable 03/25/16 05:56 Spherocytes Not Reportable 03/25/16 05:56 Pappenheimer Bodies Not Reportable 03/25/16 05:56 Sickle Cells Not Reportable 03/25/16 05:56 Target Cells Not Reportable 03/25/16 05:56 Tear Drop Cells Not Reportable 03/25/16 05:56 Ovalocytes Not Reportable 03/25/16 05:56 Helmet Cells Not Reportable 03/25/16 05:56 [place] Bodies Not Reportable 03/25/16 05:56 [place] Rings Not Reportable 03/25/16 05:56 Tuan Cells Not Reportable 03/25/16 05:56 Bite Cells Not Reportable 03/25/16 05:56 Crenated Cell Not Reportable 03/25/16 05:56 Elliptocytes Not Reportable 03/25/16 05:56 Acanthocytes (Spur) Not Reportable 03/25/16 05:56 Rouleaux Not Reportable 03/25/16 05:56 Hemoglobin C Crystals Not Reportable 03/25/16 05:56 Schistocytes Not Reportable 03/25/16 05:56 Malaria parasites Not Reportable 03/25/16 05:56 Gideon Bodies Not Reportable 03/25/16 05:56 Hem Pathologist Commnt No 03/25/16 05:56 PT 19.4 Sec. (12.2-14.9) H 04/16/16 07:09 INR 1.64 (0.87-1.13) H 04/16/16 07:09 APTT 42.1 Sec. (24.2-36.6) H 04/04/16 09:55 Heparin Anti-Xa Level 0.26 U.I./ml (0.3-0.7) L 04/16/16 17:40 POC ABG pH 7.543 (7.35-7.45) H 04/16/16 17:52 POC ABG pCO2 26.3 (35-45) L 04/16/16 17:52 POC ABG pO2 55 (80-105) L 04/16/16 17:52 POC ABG HCO3 22.7 04/16/16 17:52 POC ABG Total CO2 23 04/16/16 17:52 POC ABG O2 Sat 92 04/16/16 17:52 POC ABG Base Excess 0 04/16/16 17:52 VBG pH 7.418 (7.320-7.420) 03/24/16 14:00 FiO2 50 % 04/16/16 17:52 Sodium 144 mmol/L (137-145) 04/14/16 05:42 Potassium 3.5 mmol/L (3.6-5.0) L 04/14/16 05:42 Chloride 104.0 mmol/L (98-107) 04/14/16 05:42 Carbon Dioxide 27 mmol/L (22-30) 04/14/16 05:42 Anion Gap 17 mmol/L 04/14/16 05:42 BUN 19 mg/dL (9-20) 04/14/16 05:42 Creatinine 0.8 mg/dL (0.8-1.5) 04/14/16 05:42 Estimated GFR > 60 ml/min 04/14/16 05:42 BUN/Creatinine Ratio 23.75 % 04/14/16 05:42 Glucose 160 mg/dL (75-100) H 04/14/16 05:42 POC Glucose 69 (70-105) L 04/16/16 14:00 Hemoglobin A1c 9.6 % (4-6) H 03/24/16 14:00 Lactic Acid 2.8 mmol/L (0.7-2.1) H 03/24/16 15:26 Calcium 8.2 mg/dL (8.4-10.2) L 04/14/16 05:42 Phosphorus 2.3 mg/dL (2.5-4.5) L D 03/30/16 04:00 Magnesium 1.9 mg/dL (1.7-2.3) 03/30/16 04:00 Total Bilirubin 0.3 mg/dL (0.1-1.2) 03/24/16 14:00 AST 24 units/L (5-40) 03/24/16 14:00 ALT 38 units/L (7-56) 03/24/16 14:00 Alkaline Phosphatase 77 units/L (35-129) 03/24/16 14:00 Lactate Dehydrogenase 460 units/L (91-180) H 03/25/16 05:56 Total Creatine Kinase 356 units/L (55-170) H 03/28/16 13:29 Troponin T < 0.010 ng/mL (0.00-0.029) 03/28/16 13:29 NT-Pro-B Natriuret Pep 897.9 pg/mL (0-900) 04/03/16 04:10 Serum Total Protein 7.1 g/dL (6.1-8.1) 03/25/16 13:00 Total Protein 7.4 g/dL (6.3-8.2) 03/24/16 14:00 Albumin See scanned report 03/31/16 12:20 Albumin/Globulin Ratio 0.9 % 03/24/16 14:00 [id number] See scanned report 03/31/16 12:20 [id number] See scanned report 03/31/16 12:20 Beta Globulins See scanned report 03/31/16 12:20 [id number] 2.46 mg/L (<=2.51) 03/25/16 13:00 Gamma Globulins See scanned report 03/31/16 12:20 Abnorm Protein Band 1 see below (()) 03/25/16 13:00 PEP Interpretation See scanned report 03/31/16 12:20 Triglycerides 88 mg/dL (2-149) 03/24/16 17:58 Cholesterol 221 mg/dL (50-199) H 03/24/16 17:58 LDL Cholesterol Direct 146 mg/dL (50-130) H 03/24/16 17:58 HDL Cholesterol 58 mg/dL (40-59) 03/24/16 17:58 Cholesterol/HDL Ratio 3.81 % 03/24/16 17:58 Urine Color Yellow (Yellow) 03/24/16 14:27 Urine Turbidity Clear (Clear) 03/24/16 14:27 Urine pH 5.0 (5.0-7.0) 03/24/16 14:27 Ur Specific [place] 1.017 (1.003-1.030) 03/24/16 14:27 Urine Protein <15 mg/dl mg/dL (Negative) 03/24/16 14:27 Urine Glucose (UA) >=500 mg/dL (Negative) 03/24/16 14:27 Urine Ketones Neg mg/dL (Negative) 03/24/16 14:27 Urine Blood Sm (Negative) 03/24/16 14:27 Urine Nitrite Neg (Negative) 03/24/16 14:27 Urine Bilirubin Neg (Negative) 03/24/16 14:27 Urine Urobilinogen < 2.0 mg/dL (<2.0) 03/24/16 14:27 Ur Leukocyte Esterase Neg (Negative) 03/24/16 14:27 Urine WBC (Auto) 2.0 /HPF (0.0-6.0) 03/24/16 14:27 Urine RBC (Auto) < 1.0 /HPF (0.0-6.0) 03/24/16 14:27 U Epithel Cells (Auto) 4.0 /HPF (0-13.0) 03/24/16 14:27 Hyaline Casts 1 /LPF 03/24/16 14:27 Urine Mucus Few /HPF 03/24/16 14:27 Ur Random Creatinine See scanned report 03/31/16 12:20 U Random Total Protein See scanned report 03/31/16 12:20 Protein/Creatinin Ratio See scanned report 03/31/16 12:20 U Abnormal Prot Band 1 See scanned report 03/31/16 12:20 U Abnormal Prot Band 2 See scanned report 03/31/16 12:20 U Abnormal Prot Band 3 See scanned report 03/31/16 12:20 Ketones 1.0 mg/dL (0.2-2.8) 03/24/16 14:00
--- NOTE | 2016-04-16 18:58 | XRay Report ---
FINAL REPORT PROCEDURE: XR CHEST 1V AP PORTABLE 18 38 P.M. TECHNIQUE: Chest radiograph anteroposterior view. CPT 81535 HISTORY: ETT placement COMPARISON: Chest 04/12/2015 FINDINGS: Heart: Moderately enlarged Mediastinum/Vessels: Moderate central congestion. Atherosclerotic aorta. Midline sternotomy wires, clips. Apparent heart valve Lungs/Pleural space: COPD with hazy infiltrate suspected in the right lower lung zone. Bony thorax: No acute osseous abnormality. Life support devices: Endotracheal tube tip 4 centimeter from bifurcation. Dobhoff sized tube along the esophagus terminates left upper quadrant area.. EKG wires and leads IMPRESSION: Endotracheal tube in position 4 centimeters from bifurcation
[2016-04-16] MEDS ORDERED: NACL 0.9% 500 ML IV SCH (19:00)
[2016-04-16] MEDS ORDERED: NACL 0.9% 1000 ML 1,000 ML ONE (19:31)
[2016-04-16 19:45] LABS: ISTAT Base Excess 0; ISTAT PCO2 30.3 (35-45); ISTAT PH 7.488 (7.35-7.45); ISTAT PO2 203 (80-105); ISTAT SO2 100; ISTAT TCO2 24
[2016-04-16] MEDS ORDERED: NACL 0.9% 1000 ML 2,000 ML IV SCH (19:47)
[2016-04-16] MEDS: DUONEB 0.5 MG-3 MG/3 ML SOLN IH SCH (20:22)
[2016-04-16] MEDS: LEVOPHED 8 MG in NACL 0.9% 250ML 242 ML IV SCH (21:36)
[2016-04-17] MEDS: PEPCID PO SCH ×3 (00:06→21:21)
[2016-04-17] MEDS: KEPPRA PO SCH ×3 (00:06→21:20)
[2016-04-17] MEDS: LEVOPHED 8 MG in NACL 0.9% 250ML 242 ML IV SCH ×2 (02:00→05:00)
[2016-04-17] MEDS: DUONEB 0.5 MG-3 MG/3 ML SOLN IH SCH ×4 (02:11→20:01)
[2016-04-17] MEDS: NORMODYNE PO SCH ×4 (05:09→20:27)
[2016-04-17] MEDS: ZESTRIL PO SCH ×3 (05:10→21:22)
[2016-04-17 05:19] LABS: ISTAT Base Excess -2; ISTAT HCO3 21.8; ISTAT PCO2 32.7 (35-45); ISTAT PH 7.433 (7.35-7.45); ISTAT PO2 68 (80-105); ISTAT SO2 94; ISTAT TCO2 23
[2016-04-17 06:51] LABS: INR 1.43 (0.87-1.13)
[2016-04-17] MEDS ORDERED: ANCEF/STERILE WATER 2 GM/20 ML 20 ML IV NR (07:00)
--- NOTE | 2016-04-17 08:29 | Anesthesia Consultation ---
Anesthesia Consult and Med Hx Date of service: 04/17/16 - Pulmonary Exam CTA: Yes - Cardiac Exam Cardiac Exam: RRR - Pre-Operative Health Status ASA Pre-Surgery Classification: ASA4 Proposed Anesthetic Plan: MAC - Pulmonary Hx Asthma: No Hx Respiratory Symptoms: Yes (Respiratory failure. 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
--- NOTE | 2016-04-17 08:30 | Anesthesia Day of Surgery ---
Anesthesia Day of Surgery - Day of Surgery Patient Examined: Yes Patient H&P Reviewed: Yes Patient is NPO: Yes Beta Blockers: No (being held. patient on levophed)
[2016-04-17] MEDS ORDERED: VERSED ONE (08:58)
[2016-04-17] MEDS ORDERED: SIMPLE SYRUP FEEDTUBE PRN ×2 (09:28)
[2016-04-17] MEDS ORDERED: PANCREAZE DR 10,500 UNIT FEEDTUBE PRN (09:28)
[2016-04-17] MEDS ORDERED: SODIUM BICARBONATE FEEDTUBE PRN (09:28)
--- NOTE | 2016-04-17 09:55 | Post Operative Note ---
Pre-op diagnosis: dysphagia Post-op diagnosis: same Findings: EGD: hiatal hernia - gastritis - 20 F peg placed, bumper at 3 cm Procedure: EGD/PEG Anesthesia: MAC Surgeon: ADAIR YE Estimated blood loss: none Pathology: none Condition: stable Disposition: ICU
--- NOTE | 2016-04-17 10:13 | Operative Report ---
PROCEDURE: EGD with PEG tube placement. INDICATION: 1. Dysphagia. 2. Nutritional support. 3. Weight loss. MEDICATIONS: Propofol per [employer]. COMPLICATIONS: None. DESCRIPTION OF PROCEDURE: The patient done in Medical Intensive Care Unit. The patient had the procedure discussed with family at length. All risks, complications, and benefits were discussed after which the patient's signed for the procedure to be performed. The patient is on a supine position. Mouth block was placed in the patient's oral cavity. After adequate sedation with medication as above, endoscope placed in the mouth and brought to the level of the second portion of duodenum. Retroflexion view was performed. The patient's vital signs remained stable throughout the procedure. FINDINGS: There was a medium hiatal hernia at GE junction. There is mild gastritis noted in the stomach. Remaining stomach and duodenum otherwise appeared to be normal. After this, especially using standard technique and transillumination, the area for adequate placement of PEG was found. A 20-Spanish pull PEG was then placed. Bump was noted to be at 3 cm. Post-procedure, the patient was satisfactory. The patient tolerated the procedure well. No complications during the procedure. IMPRESSION: 1. Hiatal hernia. 2. Gastritis. 3. Otherwise, normal esophagogastroduodenoscopy. 4. A 20-Spanish PEG tube placed with bumper at 3 cm. RECOMMENDATIONS: 1. Basic post-peg orders, see chart. 2. Vital signs of bleeding and infection. 3. We will follow up in a.m. JOB# [id number] [facility]
[2016-04-17] MEDS: LEVEMIR SUB-Q SCH (10:31)
--- NOTE | 2016-04-17 10:43 | XRay Report ---
AP chest History: Followup respiratory failure. Findings: Lines and tubes are unchanged since yesterday's exam. Mild cardiomegaly is stable. The lungs remain generally clear. No new acute process is appreciated.
[2016-04-17] MEDS ORDERED: AMIDATE IV ONE (10:57)
--- NOTE | 2016-04-17 11:22 | Progress Note ---
Assessment and Plan Assessment and plan: 1. Acute respiratory failure. Patient reintubated last evening. Continue mechanical ventilation per pulmonary. Follow-up chest x-ray. 2. Acute CVA. CT scan revealed acute ischemic infarct in the right cerebellum. MRI reveals subacute infarct in the right cerebellar hemisphere with associated edema and mass effect as previously described. Patient also with multiple areas of acute infarct in the left occipital and frontal lobes that are most likely embolic. LIZZIE done- No thrombus but decreased flow. Cardiology recommends anticoagulation with Coumadin. 3. Hypernatremia. Continue to monitor BMP. Continue free water. 4. Encephalopathy. EEG normal. Etiology likely secondary to CVA +/- hypertension. 5. Group B strep UTI-treated 6. Accelerated hypertension. Continue antihypertensive medications 7. CAD-stable, 8. Seizures-continue Keppra. EEG normal. 9. Type 2 diabetes mellitus. Glycemic control. 10. History of aortic dissection status post repair. 11. History of prosthetic aortic valve replacement. Echo with normal function on 08/2015. 12. DVT prophylaxis-on heparin drip. 13. GI prophylaxis-Pepcid 14. Oropharyngeal dysphagia. Patient failed swallow evaluation. Status post PEG placement this morning. The high probability of a clinically significant, sudden or life threatening deterioration of the [respiratory and neurological] system(s) required my full and direct attention, intervention and personal management. The aggregate critical care time was [32] minutes. This time is in addition to time spent performing reported procedures but includes the following: [x] Data Review and interpretation [x] Patient assessment and monitoring of vital signs [x] Documentation [x] Medication orders and management History Interval history: 60 years old -[place] male with nonobstructive CAD per recent CAD, hypertension, hyperlipidemia, bioprosthetic aortic valve replacement, chronic kidney disease, diabetes and seizure disorder who was initially admitted for metabolic encephalopathy with hypernatremia. Patient developed respiratory failure during this hospitalization on 03/27 and was intubated placed on mechanical ventilation. Patient was later extubated during his hospitalization but was reintubated on the evening of 04/16/16. Patient now remains intubated on mechanical ventilation. Patient is also status post PEG tube placement this morning. Hospitalist Physical - Constitutional Vitals: Temp Pulse Resp BP Pulse Ox 98.3 F 70 14 103/63 100 04/17/16 09:51 04/17/16 11:00 04/17/16 11:00 04/17/16 11:00 04/17/16 11:00 General appearance: Present: no acute distress - EENT Eyes: Present: PERRL, EOM intact ENT: hearing intact, clear oral mucosa, dentition normal - Neck Neck: Present: supple, normal ROM - Respiratory Respiratory effort: normal Respiratory: bilateral: diminished, rhonchi - Cardiovascular Rhythm: regular Heart Sounds: Present: S1 & S2. Absent: gallop, rub - Extremities Extremities: no ischemia, No edema, Full ROM - Abdominal General gastrointestinal: soft, non-tender, non-distended, normal bowel sounds - Integumentary Integumentary: Present: clear, warm, dry - Neurologic Neurologic: CNII-XII intact, moves all extremities Results - Labs CBC & Chem 7: 04/14/16 06:02 04/14/16 05:42 Labs: Laboratory Last Values WBC 12.3 K/mm3 (4.5-11.0) H 04/14/16 06:02 RBC 4.42 M/mm3 (3.65-5.03) 04/14/16 06:02 Hgb 11.4 gm/dl (11.8-15.2) L 04/14/16 06:02 Hct 36.1 % (35.5-45.6) 04/14/16 06:02 MCV 82 fl (84-94) L 04/14/16 06:02 MCH 26 pg (28-32) L 04/14/16 06:02 MCHC 32 % (32-34) 04/14/16 06:02 RDW 14.9 % (13.2-15.2) 04/14/16 06:02 Plt Count 208 K/mm3 (140-440) 04/14/16 06:02 Lymph % (Auto) 6.7 % (13.4-35.0) L 04/06/16 05:23 [place] % (Auto) 8.3 % (0.0-7.3) H 04/06/16 05:23 Eos % (Auto) 0.1 % (0.0-4.3) 04/06/16 05:23 Baso % (Auto) 0.3 % (0.0-1.8) 04/06/16 05:23 Lymph # 0.9 K/mm3 (1.2-5.4) L 04/06/16 05:23 [place] # 1.1 K/mm3 (0.0-0.8) H 04/06/16 05:23 Eos # 0.0 K/mm3 (0.0-0.4) 04/06/16 05:23 Baso # 0.0 K/mm3 (0.0-0.1) 04/06/16 05:23 Add Manual Diff Complete 03/25/16 05:56 Total Counted 100 03/25/16 05:56 Seg Neutrophils % 84.6 % (40.0-70.0) H 04/06/16 05:23 Seg Neuts % (Manual) 91.0 % (40.0-70.0) H 03/25/16 05:56 Band Neutrophils % 1.0 % 03/25/16 05:56 Lymphocytes % (Manual) 4.0 % (13.4-35.0) L 03/25/16 05:56 Reactive Lymphs % (Man) 0 % 03/25/16 05:56 Monocytes % (Manual) 4.0 % (0.0-7.3) 03/25/16 05:56 Eosinophils % (Manual) 0 % (0.0-4.3) 03/25/16 05:56 Basophils % (Manual) 0 % (0.0-1.8) 03/25/16 05:56 Metamyelocytes % 0 % 03/25/16 05:56 Myelocytes % 0 % 03/25/16 05:56 Promyelocytes % 0 % 03/25/16 05:56 Blast Cells % 0 % 03/25/16 05:56 Nucleated RBC % Not Reportable 03/25/16 05:56 Seg Neutrophils # 11.0 K/mm3 (1.8-7.7) H 04/06/16 05:23 Seg Neutrophils # Man 19.4 K/mm3 (1.8-7.7) H 03/25/16 05:56 Band Neutrophils # 0.2 K/mm3 03/25/16 05:56 Lymphocytes # (Manual) 0.9 K/mm3 (1.2-5.4) L 03/25/16 05:56 Abs React Lymphs (Man) 0.0 K/mm3 03/25/16 05:56 Monocytes # (Manual) 0.9 K/mm3 (0.0-0.8) H 03/25/16 05:56 Eosinophils # (Manual) 0.0 K/mm3 (0.0-0.4) 03/25/16 05:56 Basophils # (Manual) 0.0 K/mm3 (0.0-0.1) 03/25/16 05:56 Metamyelocytes # 0.0 K/mm3 03/25/16 05:56 Myelocytes # 0.0 K/mm3 03/25/16 05:56 Promyelocytes # 0.0 K/mm3 03/25/16 05:56 Blast Cells # 0.0 K/mm3 03/25/16 05:56 WBC Morphology Not Reportable 03/25/16 05:56 Hypersegmented Neuts Not Reportable 03/25/16 05:56 Hyposegmented Neuts Not Reportable 03/25/16 05:56 Hypogranular Neuts Not Reportable 03/25/16 05:56 Smudge Cells Not Reportable 03/25/16 05:56 Toxic Granulation Not Reportable 03/25/16 05:56 Toxic Vacuolation Not Reportable 03/25/16 05:56 Dohle Bodies Not Reportable 03/25/16 05:56 Pelger-Huet Anomaly Not Reportable 03/25/16 05:56 Corina Rods Not Reportable 03/25/16 05:56 Platelet Estimate Appears normal 03/25/16 05:56 Clumped Platelets Not Reportable 03/25/16 05:56 Plt Clumps, EDTA Not Reportable 03/25/16 05:56 Large Platelets Not Reportable 03/25/16 05:56 Giant Platelets Not Reportable 03/25/16 05:56 Platelet Satelliting Not Reportable 03/25/16 05:56 Plt Morphology Comment Not Reportable 03/25/16 05:56 RBC Morphology Normal 03/25/16 05:56 Dimorphic RBCs Not Reportable 03/25/16 05:56 Polychromasia Not Reportable 03/25/16 05:56 Hypochromasia Not Reportable 03/25/16 05:56 Poikilocytosis Not Reportable 03/25/16 05:56 Anisocytosis Not Reportable 03/25/16 05:56 Microcytosis Not Reportable 03/25/16 05:56 Macrocytosis Not Reportable 03/25/16 05:56 Spherocytes Not Reportable 03/25/16 05:56 Pappenheimer Bodies Not Reportable 03/25/16 05:56 Sickle Cells Not Reportable 03/25/16 05:56 Target Cells Not Reportable 03/25/16 05:56 Tear Drop Cells Not Reportable 03/25/16 05:56 Ovalocytes Not Reportable 03/25/16 05:56 Helmet Cells Not Reportable 03/25/16 05:56 [place] Bodies Not Reportable 03/25/16 05:56 [place] Rings Not Reportable 03/25/16 05:56 Tuan Cells Not Reportable 03/25/16 05:56 Bite Cells Not Reportable 03/25/16 05:56 Crenated Cell Not Reportable 03/25/16 05:56 Elliptocytes Not Reportable 03/25/16 05:56 Acanthocytes (Spur) Not Reportable 03/25/16 05:56 Rouleaux Not Reportable 03/25/16 05:56 Hemoglobin C Crystals Not Reportable 03/25/16 05:56 Schistocytes Not Reportable 03/25/16 05:56 Malaria parasites Not Reportable 03/25/16 05:56 Gideon Bodies Not Reportable 03/25/16 05:56 Hem Pathologist Commnt No 03/25/16 05:56 PT 17.4 Sec. (12.2-14.9) H 04/17/16 05:41 INR 1.43 (0.87-1.13) H 04/17/16 05:41 APTT 42.1 Sec. (24.2-36.6) H 04/04/16 09:55 Heparin Anti-Xa Level 0.26 U.I./ml (0.3-0.7) L 04/16/16 17:40 POC ABG pH 7.433 (7.35-7.45) 04/17/16 05:10 POC ABG pCO2 32.7 (35-45) L 04/17/16 05:10 POC ABG pO2 68 (80-105) L 04/17/16 05:10 POC ABG HCO3 21.8 04/17/16 05:10 POC ABG Total CO2 23 04/17/16 05:10 POC ABG O2 Sat 94 04/17/16 05:10 POC ABG Base Excess -2 04/17/16 05:10 VBG pH 7.418 (7.320-7.420) 03/24/16 14:00 FiO2 50 % 04/17/16 05:10 Sodium 144 mmol/L (137-145) 04/14/16 05:42 Potassium 3.5 mmol/L (3.6-5.0) L 04/14/16 05:42 Chloride 104.0 mmol/L (98-107) 04/14/16 05:42 Carbon Dioxide 27 mmol/L (22-30) 04/14/16 05:42 Anion Gap 17 mmol/L 04/14/16 05:42 BUN 19 mg/dL (9-20) 04/14/16 05:42 Creatinine 0.8 mg/dL (0.8-1.5) 04/14/16 05:42 Estimated GFR > 60 ml/min 04/14/16 05:42 BUN/Creatinine Ratio 23.75 % 04/14/16 05:42 Glucose 160 mg/dL (75-100) H 04/14/16 05:42 POC Glucose 154 (70-105) H 04/17/16 08:37 Hemoglobin A1c 9.6 % (4-6) H 03/24/16 14:00 Lactic Acid 2.8 mmol/L (0.7-2.1) H 03/24/16 15:26 Calcium 8.2 mg/dL (8.4-10.2) L 04/14/16 05:42 Phosphorus 2.3 mg/dL (2.5-4.5) L D 03/30/16 04:00 Magnesium 1.9 mg/dL (1.7-2.3) 03/30/16 04:00 Total Bilirubin 0.3 mg/dL (0.1-1.2) 03/24/16 14:00 AST 24 units/L (5-40) 03/24/16 14:00 ALT 38 units/L (7-56) 03/24/16 14:00 Alkaline Phosphatase 77 units/L (35-129) 03/24/16 14:00 Lactate Dehydrogenase 460 units/L (91-180) H 03/25/16 05:56 Total Creatine Kinase 356 units/L (55-170) H 03/28/16 13:29 Troponin T < 0.010 ng/mL (0.00-0.029) 03/28/16 13:29 NT-Pro-B Natriuret Pep 897.9 pg/mL (0-900) 04/03/16 04:10 Serum Total Protein 7.1 g/dL (6.1-8.1) 03/25/16 13:00 Total Protein 7.4 g/dL (6.3-8.2) 03/24/16 14:00 Albumin See scanned report 03/31/16 12:20 Albumin/Globulin Ratio 0.9 % 03/24/16 14:00 Jepxn-0-Vhujmljob See scanned report 03/31/16 12:20 Xinjx-0-Gthbuqmex See scanned report 03/31/16 12:20 Beta Globulins See scanned report 03/31/16 12:20 Nhph-7-Hbxiaybbbtpax 2.46 mg/L (<=2.51) 03/25/16 13:00 Gamma Globulins See scanned report 03/31/16 12:20 Abnorm Protein Band 1 see below (()) 03/25/16 13:00 PEP Interpretation See scanned report 03/31/16 12:20 Triglycerides 88 mg/dL (2-149) 03/24/16 17:58 Cholesterol 221 mg/dL (50-199) H 03/24/16 17:58 LDL Cholesterol Direct 146 mg/dL (50-130) H 03/24/16 17:58 HDL Cholesterol 58 mg/dL (40-59) 03/24/16 17:58 Cholesterol/HDL Ratio 3.81 % 03/24/16 17:58 Urine Color Yellow (Yellow) 03/24/16 14:27 Urine Turbidity Clear (Clear) 03/24/16 14:27 Urine pH 5.0 (5.0-7.0) 03/24/16 14:27 Ur Specific [place] 1.017 (1.003-1.030) 03/24/16 14:27 Urine Protein <15 mg/dl mg/dL (Negative) 03/24/16 14:27 Urine Glucose (UA) >=500 mg/dL (Negative) 03/24/16 14:27 Urine Ketones Neg mg/dL (Negative) 03/24/16 14:27 Urine Blood Sm (Negative) 03/24/16 14:27 Urine Nitrite Neg (Negative) 03/24/16 14:27 Urine Bilirubin Neg (Negative) 03/24/16 14:27 Urine Urobilinogen < 2.0 mg/dL (<2.0) 03/24/16 14:27 Ur Leukocyte Esterase Neg (Negative) 03/24/16 14:27 Urine WBC (Auto) 2.0 /HPF (0.0-6.0) 03/24/16 14:27 Urine RBC (Auto) < 1.0 /HPF (0.0-6.0) 03/24/16 14:27 U Epithel Cells (Auto) 4.0 /HPF (0-13.0) 03/24/16 14:27 Hyaline Casts 1 /LPF 03/24/16 14:27 Urine Mucus Few /HPF 03/24/16 14:27 Ur Random Creatinine See scanned report 03/31/16 12:20 U Random Total Protein See scanned report 03/31/16 12:20 Protein/Creatinin Ratio See scanned report 03/31/16 12:20 U Abnormal Prot Band 1 See scanned report 03/31/16 12:20 U Abnormal Prot Band 2 See scanned report 03/31/16 12:20 U Abnormal Prot Band 3 See scanned report 03/31/16 12:20 Ketones 1.0 mg/dL (0.2-2.8) 03/24/16 14:00
--- NOTE | 2016-04-17 11:23 | Progress Note ---
Assessment and Plan 61 y/o male with acute encephalopathy, secondary to embolic strokes, now with acute respiratory failure requiring re-intubation. 1. Will need trach. Will place consult to surgery 2. Will bolus with normal saline to help with bp 3. CXR may have some right lower lobe airspace disease, will repeat tomorrow, not febrile, needs to have labs checked 4. Hold warfarin, continue heparin 5. Overall prognosis is guarded. CCT 31 minutes. Subjective Date of service: 04/17/16 Principal diagnosis: CVA Interval history: Patient intubated on the floor yesterday secondary to agonal respirations. Never lost pulse. Same episode that happened about 3 weeks ago which is what got him in the ICU the first time. currently having Picc line placed. On levophed at 8mcgs. Objective Vital Signs - 12hr 04/16/16 04/17/16 04/17/16 23:26 00:00 00:17 Temperature 98.7 F Pulse Rate 71 70 71 Pulse Rate [ Anterior Bilateral Throughout] Pulse Rate [ Apical] Respiratory 19 20 19 Rate Respiratory Rate [Anterior Bilateral Throughout] Blood Pressure 103/62 107/62 124/67 O2 Sat by Pulse 100 100 Oximetry 04/17/16 04/17/16 04/17/16 01:00 01:33 01:39 Temperature Pulse Rate 72 71 71 Pulse Rate [ Anterior Bilateral Throughout] Pulse Rate [ Apical] Respiratory 19 19 17 Rate Respiratory Rate [Anterior Bilateral Throughout] Blood Pressure 116/64 108/65 108/65 O2 Sat by Pulse 99 98 Oximetry 04/17/16 04/17/16 04/17/16 02:00 02:11 02:26 Temperature Pulse Rate 70 Pulse Rate [ 70 72 Anterior Bilateral Throughout] Pulse Rate [ Apical] Respiratory 17 Rate Respiratory 21 21 Rate [Anterior Bilateral Throughout] Blood Pressure 105/57 O2 Sat by Pulse Oximetry 04/17/16 04/17/16 04/17/16 02:51 03:00 03:21 Temperature Pulse Rate 71 70 70 Pulse Rate [ Anterior Bilateral Throughout] Pulse Rate [ Apical] Respiratory 18 17 19 Rate Respiratory Rate [Anterior Bilateral Throughout] Blood Pressure 102/60 104/64 107/65 O2 Sat by Pulse 99 98 100 Oximetry 04/17/16 04/17/16 04/17/16 04:01 04:24 04:51 Temperature Pulse Rate 83 80 80 Pulse Rate [ Anterior Bilateral Throughout] Pulse Rate [ Apical] Respiratory 27 H 13 Rate Respiratory Rate [Anterior Bilateral Throughout] Blood Pressure 119/77 116/67 116/67 O2 Sat by Pulse 100 96 94 Oximetry 04/17/16 04/17/16 04/17/16 05:00 05:03 05:21 Temperature 97.8 F Pulse Rate 79 79 79 Pulse Rate [ Anterior Bilateral Throughout] Pulse Rate [ Apical] Respiratory 19 18 18 Rate Respiratory Rate [Anterior Bilateral Throughout] Blood Pressure 120/65 120/65 99/59 O2 Sat by Pulse 96 95 97 Oximetry 04/17/16 04/17/16 04/17/16 05:25 05:41 06:00 Temperature Pulse Rate 78 77 76 Pulse Rate [ Anterior Bilateral Throughout] Pulse Rate [ Apical] Respiratory 18 18 18 Rate Respiratory Rate [Anterior Bilateral Throughout] Blood Pressure 99/59 92/57 111/65 O2 Sat by Pulse 97 99 Oximetry 04/17/16 04/17/16 04/17/16 06:09 07:01 07:09 Temperature Pulse Rate 77 80 83 Pulse Rate [ Anterior Bilateral Throughout] Pulse Rate [ Apical] Respiratory 18 18 22 Rate Respiratory Rate [Anterior Bilateral Throughout] Blood Pressure 111/65 122/68 122/68 O2 Sat by Pulse 99 98 99 Oximetry 04/17/16 04/17/16 04/17/16 07:26 08:00 09:01 Temperature 98.5 F Pulse Rate 80 85 Pulse Rate [ Anterior Bilateral Throughout] Pulse Rate [ 78 Apical] Respiratory 20 24 Rate Respiratory Rate [Anterior Bilateral Throughout] Blood Pressure 119/74 119/64 O2 Sat by Pulse 91 Oximetry 04/17/16 04/17/16 04/17/16 09:20 09:51 10:00 Temperature 98.5 F 98.3 F Pulse Rate 79 76 73 Pulse Rate [ Anterior Bilateral Throughout] Pulse Rate [ Apical] Respiratory 14 14 14 Rate Respiratory Rate [Anterior Bilateral Throughout] Blood Pressure 120/76 102/63 102/63 O2 Sat by Pulse 100 100 Oximetry 04/17/16 04/17/16 04/17/16 10:10 10:35 10:43 Temperature Pulse Rate 76 77 73 Pulse Rate [ Anterior Bilateral Throughout] Pulse Rate [ Apical] Respiratory 14 16 14 Rate Respiratory Rate [Anterior Bilateral Throughout] Blood Pressure 108/64 111/80 115/66 O2 Sat by Pulse 100 99 100 Oximetry 04/17/16 04/17/16 10:44 11:00 Temperature Pulse Rate 70 Pulse Rate [ Anterior Bilateral Throughout] Pulse Rate [ 92 H Apical] Respiratory 14 Rate Respiratory Rate [Anterior Bilateral Throughout] Blood Pressure 103/63 O2 Sat by Pulse 100 Oximetry Constitutional: no acute distress Eyes: non-icteric ENT: other (orally intubated and sedated) Neck: supple Effort: normal Ascultation: Bilateral: clear, rhonchi (occasional) Percussion: Bilateral: not dull Cardiovascular: regular rate and rhythm, irregular rhythm Gastrointestinal: normoactive bowel sounds, soft, non-tender Extremities: no cyanosis, no edema Neurologic: other (RASS 0 ) CBC and BMP: 04/14/16 06:02 04/14/16 05:42 ABG, PT/INR, D-dimer: ABG POC ABG pH 7.433 (7.35-7.45) 04/17/16 05:10 POC ABG pCO2 32.7 (35-45) L 04/17/16 05:10 POC ABG pO2 68 (80-105) L 04/17/16 05:10 POC ABG HCO3 21.8 04/17/16 05:10 POC ABG Total CO2 23 04/17/16 05:10 POC ABG O2 Sat 94 04/17/16 05:10 PT/INR, D-dimer PT 17.4 Sec. (12.2-14.9) H 04/17/16 05:41 INR 1.43 (0.87-1.13) H 04/17/16 05:41 Abnormal lab findings: Abnormal Labs 03/24/16 03/24/16 03/24/16 17:58 20:25 23:23 WBC RBC Hgb Hct MCV MCH MCHC Plt Count Lymph % (Auto) Giles % (Auto) Lymph # Giles # Baso # Seg Neutrophils % Seg Neuts % (Manual) Lymphocytes % (Manual) Seg Neutrophils # Seg Neutrophils # Man Lymphocytes # (Manual) Monocytes # (Manual) PT INR APTT Heparin Anti-Xa Level POC ABG pH POC ABG pCO2 POC ABG pO2 Sodium 169 H* Potassium 3.5 L Chloride 130.3 H Carbon Dioxide BUN 28 H Creatinine 1.8 H Glucose POC Glucose 112 H Calcium Phosphorus Lactate Dehydrogenase Total Creatine Kinase NT-Pro-B Natriuret Pep Albumin Pnfef-4-Hdsoguxer Fqnbo-9-Psrvfyrxh Beta Globulins PEP Interpretation Cholesterol 221 H LDL Cholesterol Direct 146 H 03/25/16 03/25/16 03/25/16 05:56 05:56 05:56 WBC 21.3 H RBC 6.32 H Hgb 16.7 H Hct 52.7 H MCV 83 L MCH 27 L MCHC Plt Count Lymph % (Auto) Giles % (Auto) Lymph # Giles # Baso # Seg Neutrophils % Seg Neuts % (Manual) 91.0 H Lymphocytes % (Manual) 4.0 L Seg Neutrophils # Seg Neutrophils # Man 19.4 H Lymphocytes # (Manual) 0.9 L Monocytes # (Manual) 0.9 H PT INR APTT Heparin Anti-Xa Level POC ABG pH POC ABG pCO2 POC ABG pO2 Sodium 172 H* Potassium 3.5 L Chloride 130.4 H Carbon Dioxide BUN 29 H Creatinine 1.8 H Glucose 187 H POC Glucose Calcium Phosphorus Lactate Dehydrogenase 460 H Total Creatine Kinase NT-Pro-B Natriuret Pep Albumin Fctpl-3-Yujvjqmup Edinj-4-Ldsdyiggp Beta Globulins PEP Interpretation Cholesterol LDL Cholesterol Direct 03/25/16 03/25/16 03/25/16 07:55 12:19 13:00 WBC RBC Hgb Hct MCV MCH MCHC Plt Count Lymph % (Auto) Giles % (Auto) Lymph # Giles # Baso # Seg Neutrophils % Seg Neuts % (Manual) Lymphocytes % (Manual) Seg Neutrophils # Seg Neutrophils # Man Lymphocytes # (Manual) Monocytes # (Manual) PT INR APTT Heparin Anti-Xa Level POC ABG pH POC ABG pCO2 POC ABG pO2 Sodium Potassium Chloride Carbon Dioxide BUN Creatinine Glucose POC Glucose 231 H 314 H Calcium Phosphorus Lactate Dehydrogenase Total Creatine Kinase NT-Pro-B Natriuret Pep Albumin 3.4 L Tmwak-3-Pcsmvkedi 0.4 H Gknku-4-Eozotdcen 1.1 H Beta Globulins 0.6 H PEP Interpretation see below H Cholesterol LDL Cholesterol Direct 03/25/16 03/25/16 03/26/16 16:41 22:45 08:32 WBC RBC Hgb Hct MCV MCH MCHC Plt Count Lymph % (Auto) Giles % (Auto) Lymph # Giles # Baso # Seg Neutrophils % Seg Neuts % (Manual) Lymphocytes % (Manual) Seg Neutrophils # Seg Neutrophils # Man Lymphocytes # (Manual) Monocytes # (Manual) PT INR APTT Heparin Anti-Xa Level POC ABG pH POC ABG pCO2 POC ABG pO2 Sodium Potassium Chloride Carbon Dioxide BUN Creatinine Glucose POC Glucose 444 H 326 H 360 H Calcium Phosphorus Lactate Dehydrogenase Total Creatine Kinase NT-Pro-B Natriuret Pep Albumin Mwhnl-3-Wjjamdqum Bousr-9-Suksvvylc Beta Globulins PEP Interpretation Cholesterol LDL Cholesterol Direct 03/26/16 03/26/16 03/26/16 12:38 15:33 15:47 WBC RBC Hgb Hct MCV MCH MCHC Plt Count Lymph % (Auto) Giles % (Auto) Lymph # Giles # Baso # Seg Neutrophils % Seg Neuts % (Manual) Lymphocytes % (Manual) Seg Neutrophils # Seg Neutrophils # Man Lymphocytes # (Manual) Monocytes # (Manual) PT INR APTT Heparin Anti-Xa Level POC ABG pH 7.511 H POC ABG pCO2 26.5 L POC ABG pO2 70 L Sodium Potassium Chloride Carbon Dioxide BUN Creatinine Glucose POC Glucose 280 H 174 H Calcium Phosphorus Lactate Dehydrogenase Total Creatine Kinase NT-Pro-B Natriuret Pep Albumin Wtttp-2-Pynhhlljr Tcppo-9-Kxdbzfcsf Beta Globulins PEP Interpretation Cholesterol LDL Cholesterol Direct 03/26/16 03/26/16 03/26/16 16:47 16:47 18:51 WBC 14.0 H RBC 5.17 H Hgb Hct MCV MCH 26 L MCHC 31 L Plt Count 139 L Lymph % (Auto) Giles % (Auto) Lymph # Giles # Baso # Seg Neutrophils % Seg Neuts % (Manual) Lymphocytes % (Manual) Seg Neutrophils # Seg Neutrophils # Man Lymphocytes # (Manual) Monocytes # (Manual) PT INR APTT Heparin Anti-Xa Level POC ABG pH POC ABG pCO2 33.9 L POC ABG pO2 150 H Sodium 164 H* Potassium 3.4 L Chloride 128.5 H Carbon Dioxide BUN 30 H Creatinine 2.2 H Glucose 121 H POC Glucose Calcium 8.1 L Phosphorus Lactate Dehydrogenase Total Creatine Kinase NT-Pro-B Natriuret Pep Albumin Aigqs-1-Digkzrigm Mwdft-7-Bgmwgbdui Beta Globulins PEP Interpretation Cholesterol LDL Cholesterol Direct 03/27/16 03/27/16 03/27/16 02:19 05:47 06:02 WBC RBC Hgb Hct MCV MCH MCHC Plt Count Lymph % (Auto) Giles % (Auto) Lymph # Giles # Baso # Seg Neutrophils % Seg Neuts % (Manual) Lymphocytes % (Manual) Seg Neutrophils # Seg Neutrophils # Man Lymphocytes # (Manual) Monocytes # (Manual) PT INR APTT Heparin Anti-Xa Level POC ABG pH POC ABG pCO2 27.3 L 30.3 L POC ABG pO2 50 L 112 H Sodium 158 H Potassium Chloride 126.7 H Carbon Dioxide 20 L BUN 25 H Creatinine 1.7 H Glucose POC Glucose Calcium 7.0 L Phosphorus Lactate Dehydrogenase Total Creatine Kinase NT-Pro-B Natriuret Pep Albumin Zmhom-6-Hpmlneunz Whpgb-7-Onmkmrfdw Beta Globulins PEP Interpretation Cholesterol LDL Cholesterol Direct 03/27/16 03/27/16 03/27/16 07:51 09:20 11:45 WBC 14.2 H RBC Hgb Hct MCV 83 L MCH 27 L MCHC Plt Count 113 L Lymph % (Auto) Giles % (Auto) Lymph # Giles # Baso # Seg Neutrophils % Seg Neuts % (Manual) Lymphocytes % (Manual) Seg Neutrophils # Seg Neutrophils # Man Lymphocytes # (Manual) Monocytes # (Manual) PT INR APTT Heparin Anti-Xa Level POC ABG pH POC ABG pCO2 POC ABG pO2 Sodium Potassium Chloride Carbon Dioxide BUN Creatinine Glucose POC Glucose 124 H 241 H Calcium Phosphorus Lactate Dehydrogenase Total Creatine Kinase NT-Pro-B Natriuret Pep Albumin Awxwy-9-Nhmduzptx Axklc-3-Axuwkfsml Beta Globulins PEP Interpretation Cholesterol LDL Cholesterol Direct 03/27/16 03/27/16 03/28/16 16:39 22:03 03:29 WBC RBC Hgb Hct MCV MCH MCHC Plt Count Lymph % (Auto) Giles % (Auto) Lymph # Giles # Baso # Seg Neutrophils % Seg Neuts % (Manual) Lymphocytes % (Manual) Seg Neutrophils # Seg Neutrophils # Man Lymphocytes # (Manual) Monocytes # (Manual) PT INR APTT Heparin Anti-Xa Level POC ABG pH POC ABG pCO2 POC ABG pO2 Sodium Potassium Chloride Carbon Dioxide BUN Creatinine Glucose POC Glucose 266 H 167 H 241 H Calcium Phosphorus Lactate Dehydrogenase Total Creatine Kinase NT-Pro-B Natriuret Pep Albumin Dhrga-4-Xioorkquy Oquhc-0-Dcwlswiyh Beta Globulins PEP Interpretation Cholesterol LDL Cholesterol Direct 03/28/16 03/28/16 03/28/16 05:00 05:00 05:00 WBC RBC Hgb Hct MCV 83 L MCH 27 L MCHC Plt Count 106 L Lymph % (Auto) Giles % (Auto) 10.1 H Lymph # Giles # 1.0 H Baso # Seg Neutrophils % 75.1 H Seg Neuts % (Manual) Lymphocytes % (Manual) Seg Neutrophils # Seg Neutrophils # Man Lymphocytes # (Manual) Monocytes # (Manual) PT INR APTT Heparin Anti-Xa Level POC ABG pH POC ABG pCO2 POC ABG pO2 Sodium 147 H D Potassium 3.1 L D Chloride 112.3 H Carbon Dioxide 21 L BUN Creatinine Glucose 208 H POC Glucose Calcium 7.0 L Phosphorus 2.2 L Lactate Dehydrogenase Total Creatine Kinase NT-Pro-B Natriuret Pep Albumin Vgrwv-4-Jheitxjrv Ozzkb-4-Vnolxichd Beta Globulins PEP Interpretation Cholesterol LDL Cholesterol Direct 03/28/16 03/28/16 03/28/16 05:14 08:41 10:56 WBC RBC Hgb Hct MCV MCH MCHC Plt Count Lymph % (Auto) Giles % (Auto) Lymph # Giles # Baso # Seg Neutrophils % Seg Neuts % (Manual) Lymphocytes % (Manual) Seg Neutrophils # Seg Neutrophils # Man Lymphocytes # (Manual) Monocytes # (Manual) PT INR APTT Heparin Anti-Xa Level POC ABG pH 7.457 H POC ABG pCO2 29.7 L 27.7 L POC ABG pO2 Sodium Potassium Chloride Carbon Dioxide BUN Creatinine Glucose POC Glucose 228 H Calcium Phosphorus Lactate Dehydrogenase Total Creatine Kinase NT-Pro-B Natriuret Pep Albumin Ynfft-9-Izgwlvklg Jlcac-9-Ojnduauit Beta Globulins PEP Interpretation Cholesterol LDL Cholesterol Direct 03/28/16 03/28/16 03/28/16 11:37 13:29 16:22 WBC RBC Hgb Hct MCV MCH MCHC Plt Count Lymph % (Auto) Giles % (Auto) Lymph # Giles # Baso # Seg Neutrophils % Seg Neuts % (Manual) Lymphocytes % (Manual) Seg Neutrophils # Seg Neutrophils # Man Lymphocytes # (Manual) Monocytes # (Manual) PT INR APTT Heparin Anti-Xa Level POC ABG pH POC ABG pCO2 POC ABG pO2 Sodium Potassium Chloride Carbon Dioxide BUN Creatinine Glucose POC Glucose 226 H 200 H Calcium Phosphorus Lactate Dehydrogenase Total Creatine Kinase 356 H NT-Pro-B Natriuret Pep Albumin Deysr-6-Gjykzhulr Kgrkx-9-Viicqyxsf Beta Globulins PEP Interpretation Cholesterol LDL Cholesterol Direct 03/28/16 03/29/16 03/29/16 21:48 04:50 04:50 WBC RBC Hgb 11.5 L Hct 35.3 L MCV 81 L MCH 26 L MCHC Plt Count 97 L Lymph % (Auto) Giles % (Auto) 11.7 H Lymph # Giles # 1.1 H Baso # Seg Neutrophils % Seg Neuts % (Manual) Lymphocytes % (Manual) Seg Neutrophils # Seg Neutrophils # Man Lymphocytes # (Manual) Monocytes # (Manual) PT INR APTT Heparin Anti-Xa Level POC ABG pH POC ABG pCO2 POC ABG pO2 Sodium 136 L D Potassium 3.3 L Chloride Carbon Dioxide 20 L BUN Creatinine Glucose 386 H POC Glucose 188 H Calcium 6.8 L Phosphorus 1.6 L D Lactate Dehydrogenase Total Creatine Kinase NT-Pro-B Natriuret Pep Albumin Thtcd-6-Vkovuparc Uqbji-4-Qhbeexwpu Beta Globulins PEP Interpretation Cholesterol LDL Cholesterol Direct 03/29/16 03/29/16 03/29/16 08:10 11:12 16:09 WBC RBC Hgb Hct MCV MCH MCHC Plt Count Lymph % (Auto) Giles % (Auto) Lymph # Giles # Baso # Seg Neutrophils % Seg Neuts % (Manual) Lymphocytes % (Manual) Seg Neutrophils # Seg Neutrophils # Man Lymphocytes # (Manual) Monocytes # (Manual) PT INR APTT Heparin Anti-Xa Level POC ABG pH POC ABG pCO2 POC ABG pO2 Sodium Potassium Chloride Carbon Dioxide BUN Creatinine Glucose POC Glucose 230 H 180 H 46 L Calcium Phosphorus Lactate Dehydrogenase Total Creatine Kinase NT-Pro-B Natriuret Pep Albumin Ubume-5-Taxzsqafq Jjysn-7-Bwccwuywk Beta Globulins PEP Interpretation Cholesterol LDL Cholesterol Direct 03/29/16 03/29/16 03/30/16 16:12 18:15 02:53 WBC RBC Hgb Hct MCV MCH MCHC Plt Count Lymph % (Auto) Giles % (Auto) Lymph # Giles # Baso # Seg Neutrophils % Seg Neuts % (Manual) Lymphocytes % (Manual) Seg Neutrophils # Seg Neutrophils # Man Lymphocytes # (Manual) Monocytes # (Manual) PT INR APTT Heparin Anti-Xa Level POC ABG pH POC ABG pCO2 POC ABG pO2 Sodium Potassium Chloride Carbon Dioxide BUN Creatinine Glucose POC Glucose 52 L 118 H 130 H Calcium Phosphorus Lactate Dehydrogenase Total Creatine Kinase NT-Pro-B Natriuret Pep Albumin Fsrbp-3-Suybfrzxi Zedkd-8-Dvdjegxqk Beta Globulins PEP Interpretation Cholesterol LDL Cholesterol Direct 03/30/16 03/30/16 03/30/16 04:00 04:00 05:29 WBC RBC Hgb Hct MCV 81 L MCH 26 L MCHC Plt Count 116 L Lymph % (Auto) 10.8 L Giles % (Auto) 13.1 H Lymph # 1.0 L Giles # 1.3 H Baso # Seg Neutrophils % 74.2 H Seg Neuts % (Manual) Lymphocytes % (Manual) Seg Neutrophils # Seg Neutrophils # Man Lymphocytes # (Manual) Monocytes # (Manual) PT INR APTT Heparin Anti-Xa Level POC ABG pH 7.522 H POC ABG pCO2 22.7 L POC ABG pO2 137 H Sodium 147 H D Potassium Chloride 115.5 H Carbon Dioxide 20 L BUN Creatinine Glucose 116 H POC Glucose Calcium 7.6 L Phosphorus 2.3 L D Lactate Dehydrogenase Total Creatine Kinase NT-Pro-B Natriuret Pep Albumin Yaeuh-0-Jgtvyokwy Vyewa-4-Tfkuzadfh Beta Globulins PEP Interpretation Cholesterol LDL Cholesterol Direct 03/30/16 03/30/16 03/30/16 05:47 08:05 08:59 WBC RBC Hgb Hct MCV MCH MCHC Plt Count Lymph % (Auto) Giles % (Auto) Lymph # Giles # Baso # Seg Neutrophils % Seg Neuts % (Manual) Lymphocytes % (Manual) Seg Neutrophils # Seg Neutrophils # Man Lymphocytes # (Manual) Monocytes # (Manual) PT INR APTT Heparin Anti-Xa Level POC ABG pH POC ABG pCO2 26.2 L POC ABG pO2 115 H Sodium Potassium Chloride Carbon Dioxide BUN Creatinine Glucose POC Glucose 138 H 171 H Calcium Phosphorus Lactate Dehydrogenase Total Creatine Kinase NT-Pro-B Natriuret Pep Albumin Phzyy-5-Kotrutqyx Wqftl-5-Aprjflchm Beta Globulins PEP Interpretation Cholesterol LDL Cholesterol Direct 03/30/16 03/30/16 03/30/16 12:11 12:11 16:39 WBC RBC Hgb Hct MCV MCH MCHC Plt Count Lymph % (Auto) Giles % (Auto) Lymph # Giles # Baso # Seg Neutrophils % Seg Neuts % (Manual) Lymphocytes % (Manual) Seg Neutrophils # Seg Neutrophils # Man Lymphocytes # (Manual) Monocytes # (Manual) PT INR APTT Heparin Anti-Xa Level POC ABG pH 7.476 H POC ABG pCO2 29.0 L POC ABG pO2 Sodium Potassium Chloride Carbon Dioxide BUN Creatinine Glucose POC Glucose 142 H 59 L Calcium Phosphorus Lactate Dehydrogenase Total Creatine Kinase NT-Pro-B Natriuret Pep Albumin Ibgoa-2-Pbsrdecsc Llmvn-3-Kzpjtiiva Beta Globulins PEP Interpretation Cholesterol LDL Cholesterol Direct 03/30/16 03/30/16 03/31/16 18:41 21:59 05:02 WBC RBC Hgb Hct MCV MCH MCHC Plt Count Lymph % (Auto) Giles % (Auto) Lymph # Giles # Baso # Seg Neutrophils % Seg Neuts % (Manual) Lymphocytes % (Manual) Seg Neutrophils # Seg Neutrophils # Man Lymphocytes # (Manual) Monocytes # (Manual) PT INR APTT Heparin Anti-Xa Level POC ABG pH 7.519 H POC ABG pCO2 21.8 L POC ABG pO2 142 H Sodium Potassium Chloride Carbon Dioxide BUN Creatinine Glucose POC Glucose 145 H 154 H Calcium Phosphorus Lactate Dehydrogenase Total Creatine Kinase NT-Pro-B Natriuret Pep Albumin Lszym-5-Qhmiftirv Zjmva-2-Vjckxzsvv Beta Globulins PEP Interpretation Cholesterol LDL Cholesterol Direct 03/31/16 03/31/16 03/31/16 05:15 05:15 05:15 WBC 13.4 H RBC 5.21 H Hgb Hct MCV 81 L MCH 26 L MCHC Plt Count Lymph % (Auto) 9.5 L Giles % (Auto) 14.0 H Lymph # Giles # 1.9 H Baso # Seg Neutrophils % 75.0 H Seg Neuts % (Manual) Lymphocytes % (Manual) Seg Neutrophils # 10.1 H Seg Neutrophils # Man Lymphocytes # (Manual) Monocytes # (Manual) PT INR APTT Heparin Anti-Xa Level POC ABG pH POC ABG pCO2 POC ABG pO2 Sodium Potassium Chloride 108.5 H Carbon Dioxide 19 L BUN Creatinine Glucose 188 H POC Glucose Calcium Phosphorus Lactate Dehydrogenase Total Creatine Kinase NT-Pro-B Natriuret Pep 1089 H Albumin Pfgko-4-Gezwiotfd Stinu-0-Fqcrfthbm Beta Globulins PEP Interpretation Cholesterol LDL Cholesterol Direct 03/31/16 03/31/16 03/31/16 07:23 11:12 15:20 WBC RBC Hgb Hct MCV MCH MCHC Plt Count Lymph % (Auto) Giles % (Auto) Lymph # Giles # Baso # Seg Neutrophils % Seg Neuts % (Manual) Lymphocytes % (Manual) Seg Neutrophils # Seg Neutrophils # Man Lymphocytes # (Manual) Monocytes # (Manual) PT INR APTT Heparin Anti-Xa Level POC ABG pH POC ABG pCO2 POC ABG pO2 Sodium Potassium Chloride Carbon Dioxide BUN Creatinine Glucose POC Glucose 233 H 228 H 208 H Calcium Phosphorus Lactate Dehydrogenase Total Creatine Kinase NT-Pro-B Natriuret Pep Albumin Eiyii-3-Pxkryhnuf Nvidl-6-Lftqemawh Beta Globulins PEP Interpretation Cholesterol LDL Cholesterol Direct 03/31/16 04/01/16 04/01/16 21:27 04:41 05:35 WBC 12.1 H RBC Hgb Hct MCV 81 L MCH 26 L MCHC Plt Count Lymph % (Auto) 8.5 L Giles % (Auto) 14.0 H Lymph # 1.0 L Giles # 1.7 H Baso # Seg Neutrophils % 76.2 H Seg Neuts % (Manual) Lymphocytes % (Manual) Seg Neutrophils # 9.2 H Seg Neutrophils # Man Lymphocytes # (Manual) Monocytes # (Manual) PT INR APTT Heparin Anti-Xa Level POC ABG pH 7.455 H POC ABG pCO2 31.0 L POC ABG pO2 Sodium Potassium Chloride Carbon Dioxide BUN Creatinine Glucose POC Glucose 162 H Calcium Phosphorus Lactate Dehydrogenase Total Creatine Kinase NT-Pro-B Natriuret Pep Albumin Wjplp-2-Vxgpxrheo Wudhx-3-Rtazubsdk Beta Globulins PEP Interpretation Cholesterol LDL Cholesterol Direct 04/01/16 04/01/16 04/01/16 05:35 08:44 12:49 WBC RBC Hgb Hct MCV MCH MCHC Plt Count Lymph % (Auto) Giles % (Auto) Lymph # Giles # Baso # Seg Neutrophils % Seg Neuts % (Manual) Lymphocytes % (Manual) Seg Neutrophils # Seg Neutrophils # Man Lymphocytes # (Manual) Monocytes # (Manual) PT INR APTT Heparin Anti-Xa Level POC ABG pH POC ABG pCO2 POC ABG pO2 Sodium Potassium Chloride Carbon Dioxide BUN Creatinine Glucose 256 H POC Glucose 257 H 279 H Calcium 8.0 L Phosphorus Lactate Dehydrogenase Total Creatine Kinase NT-Pro-B Natriuret Pep 1205 H Albumin Vdbsi-5-Ymgdabtwn Jcppu-5-Soejedmkn Beta Globulins PEP Interpretation Cholesterol LDL Cholesterol Direct 04/01/16 04/02/16 04/02/16 18:12 00:42 04:17 WBC RBC Hgb Hct MCV MCH MCHC Plt Count Lymph % (Auto) Giles % (Auto) Lymph # Giles # Baso # Seg Neutrophils % Seg Neuts % (Manual) Lymphocytes % (Manual) Seg Neutrophils # Seg Neutrophils # Man Lymphocytes # (Manual) Monocytes # (Manual) PT INR APTT Heparin Anti-Xa Level POC ABG pH 7.582 H POC ABG pCO2 26.8 L POC ABG pO2 Sodium Potassium Chloride Carbon Dioxide BUN Creatinine Glucose POC Glucose 168 H 282 H Calcium Phosphorus Lactate Dehydrogenase Total Creatine Kinase NT-Pro-B Natriuret Pep Albumin Sdwvo-5-Hsmloptuu Gcwzz-4-Xesizhdnb Beta Globulins PEP Interpretation Cholesterol LDL Cholesterol Direct 04/02/16 04/02/16 04/02/16 05:00 05:00 06:27 WBC 12.4 H RBC Hgb Hct MCV 81 L MCH 26 L MCHC Plt Count Lymph % (Auto) 6.4 L Giles % (Auto) 13.3 H Lymph # 0.8 L Giles # 1.7 H Baso # Seg Neutrophils % 79.4 H Seg Neuts % (Manual) Lymphocytes % (Manual) Seg Neutrophils # 9.9 H Seg Neutrophils # Man Lymphocytes # (Manual) Monocytes # (Manual) PT INR APTT Heparin Anti-Xa Level POC ABG pH POC ABG pCO2 POC ABG pO2 Sodium 146 H Potassium Chloride Carbon Dioxide BUN Creatinine Glucose 334 H POC Glucose 317 H Calcium 8.0 L Phosphorus Lactate Dehydrogenase Total Creatine Kinase NT-Pro-B Natriuret Pep Albumin Wfavu-2-Zzyzwufqv Tgdns-4-Pkvgnbmer Beta Globulins PEP Interpretation Cholesterol LDL Cholesterol Direct 04/02/16 04/02/16 04/02/16 11:51 13:10 17:24 WBC RBC Hgb Hct MCV MCH MCHC Plt Count Lymph % (Auto) Giles % (Auto) Lymph # Giles # Baso # Seg Neutrophils % Seg Neuts % (Manual) Lymphocytes % (Manual) Seg Neutrophils # Seg Neutrophils # Man Lymphocytes # (Manual) Monocytes # (Manual) PT INR APTT Heparin Anti-Xa Level POC ABG pH 7.518 H POC ABG pCO2 POC ABG pO2 Sodium Potassium Chloride Carbon Dioxide BUN Creatinine Glucose POC Glucose 278 H 195 H Calcium Phosphorus Lactate Dehydrogenase Total Creatine Kinase NT-Pro-B Natriuret Pep Albumin Jmmmd-7-Aapdtphxe Fedwx-7-Ymkokcqam Beta Globulins PEP Interpretation Cholesterol LDL Cholesterol Direct 04/03/16 04/03/16 04/03/16 00:18 04:10 04:10 WBC 14.3 H RBC Hgb Hct MCV 81 L MCH 26 L MCHC Plt Count Lymph % (Auto) 9.0 L Giles % (Auto) 10.7 H Lymph # Giles # 1.5 H Baso # 0.2 H Seg Neutrophils % 78.5 H Seg Neuts % (Manual) Lymphocytes % (Manual) Seg Neutrophils # 11.3 H Seg Neutrophils # Man Lymphocytes # (Manual) Monocytes # (Manual) PT INR APTT Heparin Anti-Xa Level POC ABG pH POC ABG pCO2 POC ABG pO2 Sodium 148 H Potassium Chloride 108.1 H Carbon Dioxide BUN 21 H Creatinine Glucose 227 H POC Glucose 144 H Calcium 8.2 L Phosphorus Lactate Dehydrogenase Total Creatine Kinase NT-Pro-B Natriuret Pep Albumin Myphq-5-Fjvttobjv Sbwfe-3-Xwofifqoy Beta Globulins PEP Interpretation Cholesterol LDL Cholesterol Direct 04/03/16 04/03/16 04/04/16 11:14 17:10 04:00 WBC 14.5 H RBC Hgb Hct MCV 81 L MCH 26 L MCHC Plt Count Lymph % (Auto) 7.2 L Giles % (Auto) 7.6 H Lymph # 1.0 L Giles # 1.1 H Baso # Seg Neutrophils % 84.5 H Seg Neuts % (Manual) Lymphocytes % (Manual) Seg Neutrophils # 12.3 H Seg Neutrophils # Man Lymphocytes # (Manual) Monocytes # (Manual) PT INR APTT Heparin Anti-Xa Level POC ABG pH POC ABG pCO2 POC ABG pO2 Sodium Potassium Chloride Carbon Dioxide BUN Creatinine Glucose POC Glucose 267 H 212 H Calcium Phosphorus Lactate Dehydrogenase Total Creatine Kinase NT-Pro-B Natriuret Pep Albumin Zutkv-[id number] Qdwwi-[id number]-Ghxphaslz Beta Globulins PEP Interpretation Cholesterol LDL Cholesterol Direct 04/04/16 04/04/16 04/04/16 05:00 09:55 09:55 WBC RBC Hgb 11.5 L Hct MCV MCH MCHC Plt Count Lymph % (Auto) Giles % (Auto) Lymph # Giles # Baso # Seg Neutrophils % Seg Neuts % (Manual) Lymphocytes % (Manual) Seg Neutrophils # Seg Neutrophils # Man Lymphocytes # (Manual) Monocytes # (Manual) PT INR APTT 42.1 H Heparin Anti-Xa Level POC ABG pH POC ABG pCO2 POC ABG pO2 Sodium 146 H Potassium Chloride Carbon Dioxide BUN 22 H Creatinine Glucose 128 H POC Glucose Calcium Phosphorus Lactate Dehydrogenase Total Creatine Kinase NT-Pro-B Natriuret Pep Albumin Bzkhh-5-Ttlxmcjxw Ckjdk-6-Wqaxnibun Beta Globulins PEP Interpretation Cholesterol LDL Cholesterol Direct 04/04/16 04/04/16 04/04/16 11:45 17:49 17:55 WBC RBC Hgb Hct MCV MCH MCHC Plt Count Lymph % (Auto) Giles % (Auto) Lymph # Giles # Baso # Seg Neutrophils % Seg Neuts % (Manual) Lymphocytes % (Manual) Seg Neutrophils # Seg Neutrophils # Man Lymphocytes # (Manual) Monocytes # (Manual) PT INR APTT Heparin Anti-Xa Level 1.19 H POC ABG pH POC ABG pCO2 POC ABG pO2 Sodium Potassium Chloride Carbon Dioxide BUN Creatinine Glucose POC Glucose 231 H 186 H Calcium Phosphorus Lactate Dehydrogenase Total Creatine Kinase NT-Pro-B Natriuret Pep Albumin Dbybf-4-Vvevfgroi Cszwe-6-Qcvdhjkrn Beta Globulins PEP Interpretation Cholesterol LDL Cholesterol Direct 04/05/16 04/05/16 04/05/16 00:35 05:32 05:42 WBC RBC Hgb Hct MCV MCH MCHC Plt Count Lymph % (Auto) Giles % (Auto) Lymph # Giles # Baso # Seg Neutrophils % Seg Neuts % (Manual) Lymphocytes % (Manual) Seg Neutrophils # Seg Neutrophils # Man Lymphocytes # (Manual) Monocytes # (Manual) PT INR APTT Heparin Anti-Xa Level POC ABG pH 7.491 H POC ABG pCO2 POC ABG pO2 Sodium Potassium Chloride Carbon Dioxide BUN Creatinine Glucose POC Glucose 192 H 242 H Calcium Phosphorus Lactate Dehydrogenase Total Creatine Kinase NT-Pro-B Natriuret Pep Albumin Fywnx-7-Flrilayft Tcfkc-9-Lqogzrtui Beta Globulins PEP Interpretation Cholesterol LDL Cholesterol Direct 04/05/16 04/05/16 04/05/16 06:20 06:20 12:19 WBC 13.9 H RBC Hgb 11.6 L Hct MCV 81 L MCH 26 L MCHC Plt Count Lymph % (Auto) 9.6 L Giles % (Auto) 8.7 H Lymph # Giles # 1.2 H Baso # Seg Neutrophils % 80.9 H Seg Neuts % (Manual) Lymphocytes % (Manual) Seg Neutrophils # 11.3 H Seg Neutrophils # Man Lymphocytes # (Manual) Monocytes # (Manual) PT INR APTT Heparin Anti-Xa Level POC ABG pH POC ABG pCO2 POC ABG pO2 Sodium 148 H Potassium Chloride Carbon Dioxide BUN 23 H Creatinine Glucose 242 H POC Glucose 187 H Calcium Phosphorus Lactate Dehydrogenase Total Creatine Kinase NT-Pro-B Natriuret Pep Albumin Hxhdo-3-Jwsibzwnn Pgfce-8-Zmvcyizbk Beta Globulins PEP Interpretation Cholesterol LDL Cholesterol Direct 04/05/16 04/05/16 04/06/16 17:10 23:45 05:23 WBC 13.0 H RBC Hgb Hct MCV 82 L MCH 26 L MCHC 31 L Plt Count Lymph % (Auto) 6.7 L Giles % (Auto) 8.3 H Lymph # 0.9 L Giles # 1.1 H Baso # Seg Neutrophils % 84.6 H Seg Neuts % (Manual) Lymphocytes % (Manual) Seg Neutrophils # 11.0 H Seg Neutrophils # Man Lymphocytes # (Manual) Monocytes # (Manual) PT INR APTT Heparin Anti-Xa Level POC ABG pH POC ABG pCO2 POC ABG pO2 Sodium Potassium Chloride Carbon Dioxide BUN Creatinine Glucose POC Glucose 169 H 202 H Calcium Phosphorus Lactate Dehydrogenase Total Creatine Kinase NT-Pro-B Natriuret Pep Albumin Spppa-6-Omxxqfrbi Dddmh-8-Wfdwzsmsj Beta Globulins PEP Interpretation Cholesterol LDL Cholesterol Direct 04/06/16 04/06/16 04/06/16 05:23 05:23 06:11 WBC RBC Hgb Hct MCV MCH MCHC Plt Count Lymph % (Auto) Giles % (Auto) Lymph # Giles # Baso # Seg Neutrophils % Seg Neuts % (Manual) Lymphocytes % (Manual) Seg Neutrophils # Seg Neutrophils # Man Lymphocytes # (Manual) Monocytes # (Manual) PT INR APTT Heparin Anti-Xa Level 0.21 L POC ABG pH POC ABG pCO2 POC ABG pO2 Sodium 153 H Potassium Chloride 111.3 H Carbon Dioxide BUN 22 H Creatinine Glucose 62 L POC Glucose 56 L Calcium Phosphorus Lactate Dehydrogenase Total Creatine Kinase NT-Pro-B Natriuret Pep Albumin Bhwdq-7-Jnjbblcnz Omfhv-5-Mchyyvhwp Beta Globulins PEP Interpretation Cholesterol LDL Cholesterol Direct 04/06/16 04/06/16 04/06/16 06:52 11:36 14:58 WBC RBC Hgb Hct MCV MCH MCHC Plt Count Lymph % (Auto) Giles % (Auto) Lymph # Giles # Baso # Seg Neutrophils % Seg Neuts % (Manual) Lymphocytes % (Manual) Seg Neutrophils # Seg Neutrophils # Man Lymphocytes # (Manual) Monocytes # (Manual) PT INR APTT Heparin Anti-Xa Level POC ABG pH POC ABG pCO2 POC ABG pO2 Sodium Potassium Chloride Carbon Dioxide BUN Creatinine Glucose POC Glucose 206 H 139 H 147 H Calcium Phosphorus Lactate Dehydrogenase Total Creatine Kinase NT-Pro-B Natriuret Pep Albumin Bisyq-9-Fojvxkzcb Koguj-7-Lhllgsbwt Beta Globulins PEP Interpretation Cholesterol LDL Cholesterol Direct 04/06/16 04/06/16 04/06/16 16:03 21:18 23:53 WBC RBC Hgb Hct MCV MCH MCHC Plt Count Lymph % (Auto) Giles % (Auto) Lymph # Giles # Baso # Seg Neutrophils % Seg Neuts % (Manual) Lymphocytes % (Manual) Seg Neutrophils # Seg Neutrophils # Man Lymphocytes # (Manual) Monocytes # (Manual) PT INR APTT Heparin Anti-Xa Level POC ABG pH POC ABG pCO2 POC ABG pO2 Sodium Potassium Chloride Carbon Dioxide BUN Creatinine Glucose POC Glucose 154 H 293 H 301 H Calcium Phosphorus Lactate Dehydrogenase Total Creatine Kinase NT-Pro-B Natriuret Pep Albumin Unuzo-6-Fjqvvqtdb Rbifp-3-Avhwpmgek Beta Globulins PEP Interpretation Cholesterol LDL Cholesterol Direct 04/07/16 04/07/16 04/07/16 02:30 05:11 05:11 WBC 12.5 H RBC Hgb 11.5 L Hct MCV 82 L MCH 26 L MCHC 31 L Plt Count Lymph % (Auto) Giles % (Auto) Lymph # Giles # Baso # Seg Neutrophils % Seg Neuts % (Manual) Lymphocytes % (Manual) Seg Neutrophils # Seg Neutrophils # Man Lymphocytes # (Manual) Monocytes # (Manual) PT INR APTT Heparin Anti-Xa Level 0.11 L POC ABG pH POC ABG pCO2 POC ABG pO2 Sodium 150 H Potassium Chloride 109.5 H Carbon Dioxide BUN 28 H Creatinine Glucose 264 H POC Glucose Calcium Phosphorus Lactate Dehydrogenase Total Creatine Kinase NT-Pro-B Natriuret Pep Albumin Gyjnk-4-Pyzramknp Yzobk-2-Nimpor[place] Beta Globulins PEP Interpretation Cholesterol LDL Cholesterol Direct 04/07/16 04/07/16 04/07/16 06:46 10:18 11:50 WBC RBC Hgb Hct MCV MCH MCHC Plt Count Lymph % (Auto) Giles % (Auto) Lymph # Giles # Baso # Seg Neutrophils % Seg Neuts % (Manual) Lymphocytes % (Manual) Seg Neutrophils # Seg Neutrophils # Man Lymphocytes # (Manual) Monocytes # (Manual) PT 15.1 H INR 1.20 H APTT Heparin Anti-Xa Level POC ABG pH POC ABG pCO2 POC ABG pO2 Sodium Potassium Chloride Carbon Dioxide BUN Creatinine Glucose POC Glucose 259 H 288 H Calcium Phosphorus Lactate Dehydrogenase Total Creatine Kinase NT-Pro-B Natriuret Pep Albumin Gwgbu-2-Xsalnhcgj Cmihw-6-Wrzfvgufv Beta Globulins PEP Interpretation Cholesterol LDL Cholesterol Direct 04/07/16 04/08/16 04/08/16 17:58 01:25 06:49 WBC RBC Hgb Hct MCV MCH MCHC Plt Count Lymph % (Auto) Giles % (Auto) Lymph # Giles # Baso # Seg Neutrophils % Seg Neuts % (Manual) Lymphocytes % (Manual) Seg Neutrophils # Seg Neutrophils # Man Lymphocytes # (Manual) Monocytes # (Manual) PT INR APTT Heparin Anti-Xa Level POC ABG pH POC ABG pCO2 POC ABG pO2 Sodium 156 H Potassium Chloride 114.7 H Carbon Dioxide BUN 33 H Creatinine Glucose 169 H POC Glucose 330 H 146 H Calcium Phosphorus Lactate Dehydrogenase Total Creatine Kinase NT-Pro-B Natriuret Pep Albumin Arhmi-0-Fizwoetbo Bdvnt-7-Bnxgnrwxh Beta Globulins PEP Interpretation Cholesterol LDL Cholesterol Direct 04/08/16 04/08/16 04/08/16 07:34 10:28 10:28 WBC RBC Hgb Hct MCV MCH MCHC Plt Count Lymph % (Auto) Giles % (Auto) Lymph # Giles # Baso # Seg Neutrophils % Seg Neuts % (Manual) Lymphocytes % (Manual) Seg Neutrophils # Seg Neutrophils # Man Lymphocytes # (Manual) Monocytes # (Manual) PT 15.5 H INR 1.24 H APTT Heparin Anti-Xa Level 0.24 L POC ABG pH POC ABG pCO2 POC ABG pO2 Sodium Potassium Chloride Carbon Dioxide BUN Creatinine Glucose POC Glucose 232 H Calcium Phosphorus Lactate Dehydrogenase Total Creatine Kinase NT-Pro-B Natriuret Pep Albumin Jowbk-6-Ncfzbgbol Hgkqf-0-Tmoxsrikl Beta Globulins PEP Interpretation Cholesterol LDL Cholesterol Direct 04/08/16 04/08/16 04/09/16 11:36 15:38 00:01 WBC RBC Hgb Hct MCV MCH MCHC Plt Count Lymph % (Auto) Giles % (Auto) Lymph # Giles # Baso # Seg Neutrophils % Seg Neuts % (Manual) Lymphocytes % (Manual) Seg Neutrophils # Seg Neutrophils # Man Lymphocytes # (Manual) Monocytes # (Manual) PT INR APTT Heparin Anti-Xa Level POC ABG pH POC ABG pCO2 POC ABG pO2 Sodium Potassium Chloride Carbon Dioxide BUN Creatinine Glucose POC Glucose 193 H 163 H 180 H Calcium Phosphorus Lactate Dehydrogenase Total Creatine Kinase NT-Pro-B Natriuret Pep Albumin Ilket-7-Pgrxsmraz Edfvm-7-Njhnaibmq Beta Globulins PEP Interpretation Cholesterol LDL Cholesterol Direct 04/09/16 04/09/16 04/09/16 06:17 06:42 06:42 WBC RBC Hgb Hct MCV MCH MCHC Plt Count Lymph % (Auto) Giles % (Auto) Lymph # Giles # Baso # Seg Neutrophils % Seg Neuts % (Manual) Lymphocytes % (Manual) Seg Neutrophils # Seg Neutrophils # Man Lymphocytes # (Manual) Monocytes # (Manual) PT 17.4 H INR 1.43 H APTT Heparin Anti-Xa Level POC ABG pH POC ABG pCO2 POC ABG pO2 Sodium 153 H Potassium Chloride 113.2 H Carbon Dioxide BUN 29 H Creatinine Glucose 301 H POC Glucose 249 H Calcium 8.3 L Phosphorus Lactate Dehydrogenase Total Creatine Kinase NT-Pro-B Natriuret Pep Albumin Xkqpn-7-Pxeogsxno Rhyqx-3-Cjvgxfdvr Beta Globulins PEP Interpretation Cholesterol LDL Cholesterol Direct 04/09/16 04/09/16 04/09/16 07:37 11:26 15:45 WBC RBC Hgb Hct MCV MCH MCHC Plt Count Lymph % (Auto) Giles % (Auto) Lymph # Giles # Baso # Seg Neutrophils % Seg Neuts % (Manual) Lymphocytes % (Manual) Seg Neutrophils # Seg Neutrophils # Man Lymphocytes # (Manual) Monocytes # (Manual) PT INR APTT Heparin Anti-Xa Level POC ABG pH POC ABG pCO2 POC ABG pO2 Sodium Potassium Chloride Carbon Dioxide BUN Creatinine Glucose POC Glucose 283 H 306 H 354 H Calcium Phosphorus Lactate Dehydrogenase Total Creatine Kinase NT-Pro-B Natriuret Pep Albumin Skwxk-1-Wkawkcdqp Jbwwy-8-Jsfqfnrfm Beta Globulins PEP Interpretation Cholesterol LDL Cholesterol Direct 04/10/16 04/10/16 04/10/16 00:53 07:15 07:34 WBC RBC Hgb 11.3 L Hct MCV MCH MCHC Plt Count Lymph % (Auto) Giles % (Auto) Lymph # Giles # Baso # Seg Neutrophils % Seg Neuts % (Manual) Lymphocytes % (Manual) Seg Neutrophils # Seg Neutrophils # Man Lymphocytes # (Manual) Monocytes # (Manual) PT INR APTT Heparin Anti-Xa Level POC ABG pH POC ABG pCO2 POC ABG pO2 Sodium Potassium Chloride Carbon Dioxide BUN Creatinine Glucose POC Glucose 323 H 311 H Calcium Phosphorus Lactate Dehydrogenase Total Creatine Kinase NT-Pro-B Natriuret Pep Albumin Mjtnu-7-Ewurqdkkb Pzqut-9-Woznaphgw Beta Globulins PEP Interpretation Cholesterol LDL Cholesterol Direct 04/10/16 04/10/16 04/10/16 07:34 07:34 11:25 WBC RBC Hgb Hct MCV MCH MCHC Plt Count Lymph % (Auto) Giles % (Auto) Lymph # Giles # Baso # Seg Neutrophils % Seg Neuts % (Manual) Lymphocytes % (Manual) Seg Neutrophils # Seg Neutrophils # Man Lymphocytes # (Manual) Monocytes # (Manual) PT 17.3 H INR 1.42 H APTT Heparin Anti-Xa Level POC ABG pH POC ABG pCO2 POC ABG pO2 Sodium 158 H Potassium Chloride 118.6 H Carbon Dioxide BUN 30 H Creatinine Glucose 330 H POC Glucose 335 H Calcium 8.3 L Phosphorus Lactate Dehydrogenase Total Creatine Kinase NT-Pro-B Natriuret Pep Albumin Qkrum-3-Olrhcuaak Oqbuv-3-Yygevtpvd Beta Globulins PEP Interpretation Cholesterol LDL Cholesterol Direct 04/10/16 04/11/16 04/11/16 16:21 00:29 07:47 WBC RBC Hgb Hct MCV MCH MCHC Plt Count Lymph % (Auto) Giles % (Auto) Lymph # Giles # Baso # Seg Neutrophils % Seg Neuts % (Manual) Lymphocytes % (Manual) Seg Neutrophils # Seg Neutrophils # Man Lymphocytes # (Manual) Monocytes # (Manual) PT 18.4 H INR 1.53 H APTT Heparin Anti-Xa Level POC ABG pH POC ABG pCO2 POC ABG pO2 Sodium Potassium Chloride Carbon Dioxide BUN Creatinine Glucose POC Glucose 230 H 162 H Calcium Phosphorus Lactate Dehydrogenase Total Creatine Kinase NT-Pro-B Natriuret Pep Albumin Lssak-2-Stqkagutu Ridwa-4-Cxghmyxbr Beta Globulins PEP Interpretation Cholesterol LDL Cholesterol Direct 04/11/16 04/11/16 04/12/16 07:47 11:22 04:54 WBC RBC Hgb 11.0 L Hct 35.0 L MCV MCH MCHC Plt Count Lymph % (Auto) Giles % (Auto) Lymph # Giles # Baso # Seg Neutrophils % Seg Neuts % (Manual) Lymphocytes % (Manual) Seg Neutrophils # Seg Neutrophils # Man Lymphocytes # (Manual) Monocytes # (Manual) PT INR APTT Heparin Anti-Xa Level POC ABG pH POC ABG pCO2 POC ABG pO2 Sodium 155 H Potassium Chloride 114.5 H Carbon Dioxide BUN 23 H Creatinine Glucose 157 H POC Glucose 229 H Calcium Phosphorus Lactate Dehydrogenase Total Creatine Kinase NT-Pro-B Natriuret Pep Albumin Hpqoa-4-Qfckztzwv Shkbt-5-Uiopzrhmh Beta Globulins PEP Interpretation Cholesterol LDL Cholesterol Direct 04/12/16 04/12/16 04/12/16 04:54 04:54 05:57 WBC RBC Hgb Hct MCV MCH MCHC Plt Count Lymph % (Auto) Giles % (Auto) Lymph # Giles # Baso # Seg Neutrophils % Seg Neuts % (Manual) Lymphocytes % (Manual) Seg Neutrophils # Seg Neutrophils # Man Lymphocytes # (Manual) Monocytes # (Manual) PT 22.5 H INR 1.98 H APTT Heparin Anti-Xa Level 0.19 L POC ABG pH POC ABG pCO2 POC ABG pO2 Sodium 156 H Potassium Chloride 115.4 H Carbon Dioxide BUN 23 H Creatinine Glucose 143 H POC Glucose 194 H Calcium Phosphorus Lactate Dehydrogenase Total Creatine Kinase NT-Pro-B Natriuret Pep Albumin Mrhlq-5-Sfbshmbzs Qkrxb-4-Kowmdvfkk Beta Globulins PEP Interpretation Cholesterol LDL Cholesterol Direct 04/12/16 04/12/16 04/12/16 12:34 19:01 23:30 WBC RBC Hgb Hct MCV MCH MCHC Plt Count Lymph % (Auto) Giles % (Auto) Lymph # Giles # Baso # Seg Neutrophils % Seg Neuts % (Manual) Lymphocytes % (Manual) Seg Neutrophils # Seg Neutrophils # Man Lymphocytes # (Manual) Monocytes # (Manual) PT INR APTT Heparin Anti-Xa Level POC ABG pH POC ABG pCO2 POC ABG pO2 Sodium Potassium Chloride Carbon Dioxide BUN Creatinine Glucose POC Glucose 291 H 235 H 154 H Calcium Phosphorus Lactate Dehydrogenase Total Creatine Kinase NT-Pro-B Natriuret Pep Albumin Tlxiv-3-Teizmbqet Ubfzy-4-Hweaskvgj Beta Globulins PEP Interpretation Cholesterol LDL Cholesterol Direct 04/13/16 04/13/16 04/13/16 05:16 05:16 05:28 WBC RBC Hgb Hct MCV MCH MCHC Plt Count Lymph % (Auto) Giles % (Auto) Lymph # Giles # Baso # Seg Neutrophils % Seg Neuts % (Manual) Lymphocytes % (Manual) Seg Neutrophils # Seg Neutrophils # Man Lymphocytes # (Manual) Monocytes # (Manual) PT 27.0 H INR 2.49 H APTT Heparin Anti-Xa Level 0.20 L POC ABG pH POC ABG pCO2 POC ABG pO2 Sodium 150 H Potassium Chloride 110.5 H Carbon Dioxide BUN 21 H Creatinine Glucose 159 H POC Glucose 177 H Calcium Phosphorus Lactate Dehydrogenase Total Creatine Kinase NT-Pro-B Natriuret Pep Albumin Oqant-6-Awghcoxac Fomex-2-Ngzrrgphs Beta Globulins PEP Interpretation Cholesterol LDL Cholesterol Direct 04/13/16 04/13/16 04/14/16 11:30 17:54 00:44 WBC RBC Hgb Hct MCV MCH MCHC Plt Count Lymph % (Auto) Giles % (Auto) Lymph # Giles # Baso # Seg Neutrophils % Seg Neuts % (Manual) Lymphocytes % (Manual) Seg Neutrophils # Seg Neutrophils # Man Lymphocytes # (Manual) Monocytes # (Manual) PT INR APTT Heparin Anti-Xa Level POC ABG pH POC ABG pCO2 POC ABG pO2 Sodium Potassium Chloride Carbon Dioxide BUN Creatinine Glucose POC Glucose 181 H 251 H 237 H Calcium Phosphorus Lactate Dehydrogenase Total Creatine Kinase NT-Pro-B Natriuret Pep Albumin Gpgqc-9-Qbxkeaglo Gdorh-7-Blpnhxvlx Beta Globulins PEP Interpretation Cholesterol LDL Cholesterol Direct 04/14/16 04/14/16 04/14/16 05:00 05:42 05:42 WBC RBC Hgb Hct MCV MCH MCHC Plt Count Lymph % (Auto) Giles % (Auto) Lymph # Giles # Baso # Seg Neutrophils % Seg Neuts % (Manual) Lymphocytes % (Manual) Seg Neutrophils # Seg Neutrophils # Man Lymphocytes # (Manual) Monocytes # (Manual) PT 30.3 H INR 2.88 H APTT Heparin Anti-Xa Level 0.27 L POC ABG pH POC ABG pCO2 POC ABG pO2 Sodium Potassium 3.5 L Chloride Carbon Dioxide BUN Creatinine Glucose 160 H POC Glucose Calcium 8.2 L Phosphorus Lactate Dehydrogenase Total Creatine Kinase NT-Pro-B Natriuret Pep Albumin Eamsr-8-Efuxcpbdi Sobdk-4-Xtgkqnbea Beta Globulins PEP Interpretation Cholesterol LDL Cholesterol Direct 04/14/16 04/14/16 04/14/16 06:02 06:16 09:18 WBC 12.3 H RBC Hgb 11.4 L Hct MCV 82 L MCH 26 L MCHC Plt Count Lymph % (Auto) Giles % (Auto) Lymph # Giles # Baso # Seg Neutrophils % Seg Neuts % (Manual) Lymphocytes % (Manual) Seg Neutrophils # Seg Neutrophils # Man Lymphocytes # (Manual) Monocytes # (Manual) PT INR APTT Heparin Anti-Xa Level POC ABG pH POC ABG pCO2 POC ABG pO2 Sodium Potassium Chloride Carbon Dioxide BUN Creatinine Glucose POC Glucose 156 H 164 H Calcium Phosphorus Lactate Dehydrogenase Total Creatine Kinase NT-Pro-B Natriuret Pep Albumin Sfvfl-6-Qdzkrvvul Torcl-0-Aynxxtmkv Beta Globulins PEP Interpretation Cholesterol LDL Cholesterol Direct 04/14/16 04/15/16 04/15/16 13:58 01:07 06:04 WBC RBC Hgb Hct MCV MCH MCHC Plt Count Lymph % (Auto) Giles % (Auto) Lymph # Giles # Baso # Seg Neutrophils % Seg Neuts % (Manual) Lymphocytes % (Manual) Seg Neutrophils # Seg Neutrophils # Man Lymphocytes # (Manual) Monocytes # (Manual) PT 24.9 H INR 2.25 H APTT Heparin Anti-Xa Level POC ABG pH POC ABG pCO2 POC ABG pO2 Sodium Potassium Chloride Carbon Dioxide BUN Creatinine Glucose POC Glucose 109 H 154 H Calcium Phosphorus Lactate Dehydrogenase Total Creatine Kinase NT-Pro-B Natriuret Pep Albumin Hrqvk-2-Mcquqwddk Lhuvy-7-Ywastcjnh Beta Globulins PEP Interpretation Cholesterol LDL Cholesterol Direct 04/15/16 04/15/16 04/16/16 06:08 12:41 00:38 WBC RBC Hgb Hct MCV MCH MCHC Plt Count Lymph % (Auto) Giles % (Auto) Lymph # Giles # Baso # Seg Neutrophils % Seg Neuts % (Manual) Lymphocytes % (Manual) Seg Neutrophils # Seg Neutrophils # Man Lymphocytes # (Manual) Monocytes # (Manual) PT INR APTT Heparin Anti-Xa Level POC ABG pH POC ABG pCO2 POC ABG pO2 Sodium Potassium Chloride Carbon Dioxide BUN Creatinine Glucose POC Glucose 165 H 223 H 216 H Calcium Phosphorus Lactate Dehydrogenase Total Creatine Kinase NT-Pro-B Natriuret Pep Albumin Wnvni-1-Dctiknsep Cijzx-7-Xhazagczo Beta Globulins PEP Interpretation Cholesterol LDL Cholesterol Direct 04/16/16 04/16/16 04/16/16 05:45 07:09 14:00 WBC RBC Hgb Hct MCV MCH MCHC Plt Count Lymph % (Auto) Giles % (Auto) Lymph # Giles # Baso # Seg Neutrophils % Seg Neuts % (Manual) Lymphocytes % (Manual) Seg Neutrophils # Seg Neutrophils # Man Lymphocytes # (Manual) Monocytes # (Manual) PT 19.4 H INR 1.64 H APTT Heparin Anti-Xa Level 0.10 L POC ABG pH POC ABG pCO2 POC ABG pO2 Sodium Potassium Chloride Carbon Dioxide BUN Creatinine Glucose POC Glucose 207 H 69 L Calcium Phosphorus Lactate Dehydrogenase Total Creatine Kinase NT-Pro-B Natriuret Pep Albumin Gvegj-8-Awljjnjkh Jrjvx-7-Pmaocwxdt Beta Globulins PEP Interpretation Cholesterol LDL Cholesterol Direct 04/16/16 04/16/16 04/16/16 17:40 17:52 19:38 WBC RBC Hgb Hct MCV MCH MCHC Plt Count Lymph % (Auto) Giles % (Auto) Lymph # Giles # Baso # Seg Neutrophils % Seg Neuts % (Manual) Lymphocytes % (Manual) Seg Neutrophils # Seg Neutrophils # Man Lymphocytes # (Manual) Monocytes # (Manual) PT INR APTT Heparin Anti-Xa Level 0.26 L POC ABG pH 7.543 H 7.488 H POC ABG pCO2 26.3 L 30.3 L POC ABG pO2 55 L 203 H Sodium Potassium Chloride Carbon Dioxide BUN Creatinine Glucose POC Glucose Calcium Phosphorus Lactate Dehydrogenase Total Creatine Kinase NT-Pro-B Natriuret Pep Albumin Mvljd-5-Rymjiuvkp Flssu-0-Bvawrsxvz Beta Globulins PEP Interpretation Cholesterol LDL Cholesterol Direct 04/17/16 04/17/16 04/17/16 00:04 05:10 05:36 WBC RBC Hgb Hct MCV MCH MCHC Plt Count Lymph % (Auto) Giles % (Auto) Lymph # Giles # Baso # Seg Neutrophils % Seg Neuts % (Manual) Lymphocytes % (Manual) Seg Neutrophils # Seg Neutrophils # Man Lymphocytes # (Manual) Monocytes # (Manual) PT INR APTT Heparin Anti-Xa Level POC ABG pH POC ABG pCO2 32.7 L POC ABG pO2 68 L Sodium Potassium Chloride Carbon Dioxide BUN Creatinine Glucose POC Glucose 113 H 161 H Calcium Phosphorus Lactate Dehydrogenase Total Creatine Kinase NT-Pro-B Natriuret Pep Albumin Rpwxl-4-Aqnknbnsa Hmhfz-7-Nwgvvplar Beta Globulins PEP Interpretation Cholesterol LDL Cholesterol Direct 04/17/16 04/17/16 05:41 08:37 WBC RBC Hgb Hct MCV MCH MCHC Plt Count Lymph % (Auto) Giles % (Auto) Lymph # Giles # Baso # Seg Neutrophils % Seg Neuts % (Manual) Lymphocytes % (Manual) Seg Neutrophils # Seg Neutrophils # Man Lymphocytes # (Manual) Monocytes # (Manual) PT 17.4 H INR 1.43 H APTT Heparin Anti-Xa Level POC ABG pH POC ABG pCO2 POC ABG pO2 Sodium Potassium Chloride Carbon Dioxide BUN Creatinine Glucose POC Glucose 154 H Calcium Phosphorus Lactate Dehydrogenase Total Creatine Kinase NT-Pro-B Natriuret Pep Albumin Asuoc-2-Rrbwipcew Gfqjf-7-Svtoebkmn Beta Globulins PEP Interpretation Cholesterol LDL Cholesterol Direct
[2016-04-17] MEDS: NORVASC PO SCH (11:35)
[2016-04-17] MEDS: BABY ASPIRIN PO SCH (11:35)
[2016-04-17] MEDS: CORDARONE PO SCH (11:35)
[2016-04-17] MEDS: NOVOLOG SUB-Q SCH ×4 (12:56→23:46)
[2016-04-17 12:58] LABS: Hematocrit 26.9 % (35.5-45.6); Hemoglobin 8.8 gm/dl (11.8-15.2); Mean Corpuscular HGB Conc 33 % (32-34); Mean Corpuscular Hemoglobin 27 pg (28-32); Mean Corpuscular Volume 81 fl (84-94); Platelet Count 179 K/mm3 (140-440); Red Blood Count 3.31 M/mm3 (3.65-5.03); Red Cell Distribution Width 15.5 % (13.2-15.2); White Blood Count 16.5 K/mm3 (4.5-11.0)
[2016-04-17 13:24] LABS: BUN/Creatinine Ratio 21.11; Calcium 7.6 mg/dL (8.4-10.2); Chloride 106.3 mmol/L (98-107); Potassium 3.9 mmol/L (3.6-5.0)
[2016-04-17 13:46] LABS: Anisocytosis 1+; Basophils % (Manual) 0 % (0.0-1.8); Blastocytes % (Manual) 0 %; Eosinophils % (Manual) 0 % (0.0-4.3)
[2016-04-17 13:47] LABS: Diff Status Complete; Microcytosis Few; Polychromasia Few
[2016-04-17] MEDS ORDERED: DILAUDID ONE (14:04)
[2016-04-17] MEDS: HEPARIN/ 0.45% NACL-25,000 UNIT/500 ML 500 ML IV SCH (14:40)
[2016-04-17] MEDS: D50W (25GM) IV PRN (23:52)
[2016-04-17] MEDS: D5W 1,000 ML IV SCH (23:57)
--- NOTE | 2016-04-18 00:25 | Progress Note ---
Assessment and Plan 61 y/o male with acute encephalopathy, secondary to embolic strokes, now with acute respiratory failure requiring re-intubation. 1. Will need trach. Will place consult to surgery 2. Off pressors. Monitor BP 3. Afebrile, only leukocytosis. CXR is clear. Hold on any abx therapy at this time and monitor white count 4. Hold warfarin, continue heparin. Will restart once trach in place 5. Overall prognosis is guarded. CCT 31 minutes. Subjective Date of service: 04/18/16 Principal diagnosis: CVA Interval history: off levophed since around 4am. respiratory alkalosis but patient is breathing over the vent. No family at bedside. Objective Vital Signs - 12hr 04/17/16 04/17/16 04/17/16 13:00 13:05 13:40 Temperature Pulse Rate 70 71 76 Pulse Rate [ Anterior Bilateral Throughout] Pulse Rate [ Apical] Respiratory 14 13 Rate Respiratory Rate [Anterior Bilateral Throughout] Blood Pressure 141/69 145/73 118/63 O2 Sat by Pulse 100 100 118 H Oximetry 04/17/16 04/17/16 04/17/16 14:00 14:15 14:30 Temperature Pulse Rate 74 Pulse Rate [ 86 86 Anterior Bilateral Throughout] Pulse Rate [ Apical] Respiratory 14 Rate Respiratory 16 18 Rate [Anterior Bilateral Throughout] Blood Pressure 117/63 O2 Sat by Pulse 100 Oximetry 04/17/16 04/17/16 04/17/16 15:00 15:25 15:29 Temperature 98.4 F Pulse Rate 74 76 Pulse Rate [ Anterior Bilateral Throughout] Pulse Rate [ Apical] Respiratory 15 16 Rate Respiratory Rate [Anterior Bilateral Throughout] Blood Pressure 135/64 108/60 O2 Sat by Pulse 99 100 Oximetry 04/17/16 04/17/16 04/17/16 16:00 17:00 17:21 Temperature Pulse Rate 73 72 87 Pulse Rate [ Anterior Bilateral Throughout] Pulse Rate [ 80 Apical] Respiratory 16 18 22 Rate Respiratory Rate [Anterior Bilateral Throughout] Blood Pressure 112/61 103/57 149/73 O2 Sat by Pulse 100 100 97 Oximetry 04/17/16 04/17/16 04/17/16 17:55 18:00 19:00 Temperature Pulse Rate 85 89 81 Pulse Rate [ Anterior Bilateral Throughout] Pulse Rate [ Apical] Respiratory 15 17 Rate Respiratory Rate [Anterior Bilateral Throughout] Blood Pressure 149/88 149/88 106/62 O2 Sat by Pulse 83 L 99 100 Oximetry 04/17/16 04/17/16 04/17/16 19:15 19:27 19:30 Temperature Pulse Rate 87 82 80 Pulse Rate [ Anterior Bilateral Throughout] Pulse Rate [ Apical] Respiratory 15 18 19 Rate Respiratory Rate [Anterior Bilateral Throughout] Blood Pressure 128/83 118/64 127/64 O2 Sat by Pulse 99 99 100 Oximetry 04/17/16 04/17/16 04/17/16 19:31 19:45 20:00 Temperature Pulse Rate 80 80 84 Pulse Rate [ Anterior Bilateral Throughout] Pulse Rate [ Apical] Respiratory 14 17 20 Rate Respiratory Rate [Anterior Bilateral Throughout] Blood Pressure 127/64 117/63 119/71 O2 Sat by Pulse 100 100 100 Oximetry 04/17/16 04/17/16 04/17/16 20:01 20:15 20:20 Temperature Pulse Rate 87 86 Pulse Rate [ 83 Anterior Bilateral Throughout] Pulse Rate [ Apical] Respiratory 18 Rate Respiratory 20 Rate [Anterior Bilateral Throughout] Blood Pressure 119/71 147/76 O2 Sat by Pulse 100 99 Oximetry 04/17/16 04/17/16 04/17/16 20:30 20:35 20:45 Temperature Pulse Rate 82 80 Pulse Rate [ 90 Anterior Bilateral Throughout] Pulse Rate [ Apical] Respiratory 12 18 Rate Respiratory 23 Rate [Anterior Bilateral Throughout] Blood Pressure 143/81 125/68 O2 Sat by Pulse 100 100 Oximetry 04/17/16 04/17/16 04/17/16 21:00 21:15 21:21 Temperature Pulse Rate 85 83 83 Pulse Rate [ Anterior Bilateral Throughout] Pulse Rate [ Apical] Respiratory 21 20 20 Rate Respiratory Rate [Anterior Bilateral Throughout] Blood Pressure 112/67 104/71 101/65 O2 Sat by Pulse 99 100 99 Oximetry 04/17/16 04/17/16 04/17/16 21:30 21:45 22:00 Temperature Pulse Rate 82 79 79 Pulse Rate [ Anterior Bilateral Throughout] Pulse Rate [ Apical] Respiratory 18 16 18 Rate Respiratory Rate [Anterior Bilateral Throughout] Blood Pressure 101/63 97/60 101/58 O2 Sat by Pulse 99 99 99 Oximetry 04/17/16 04/17/16 04/17/16 22:15 22:30 22:45 Temperature Pulse Rate 75 75 74 Pulse Rate [ Anterior Bilateral Throughout] Pulse Rate [ Apical] Respiratory 14 20 14 Rate Respiratory Rate [Anterior Bilateral Throughout] Blood Pressure 98/57 104/65 101/63 O2 Sat by Pulse 100 99 100 Oximetry 04/17/16 04/17/16 04/17/16 23:00 23:15 23:17 Temperature Pulse Rate 74 75 76 Pulse Rate [ Anterior Bilateral Throughout] Pulse Rate [ Apical] Respiratory 14 20 15 Rate Respiratory Rate [Anterior Bilateral Throughout] Blood Pressure 111/62 107/62 107/62 O2 Sat by Pulse 100 98 100 Oximetry 04/17/16 04/17/16 04/17/16 23:30 23:45 23:59 Temperature Pulse Rate 71 70 68 Pulse Rate [ Anterior Bilateral Throughout] Pulse Rate [ Apical] Respiratory 16 14 Rate Respiratory Rate [Anterior Bilateral Throughout] Blood Pressure 109/65 98/59 107/56 O2 Sat by Pulse 99 99 100 Oximetry 04/18/16 04/18/16 00:00 00:15 Temperature Pulse Rate 69 67 Pulse Rate [ Anterior Bilateral Throughout] Pulse Rate [ Apical] Respiratory 18 15 Rate Respiratory Rate [Anterior Bilateral Throughout] Blood Pressure 107/56 98/59 O2 Sat by Pulse 100 100 Oximetry Constitutional: no acute distress Eyes: non-icteric ENT: other (orally intubated and sedated) Neck: supple Effort: normal Ascultation: Bilateral: clear, rhonchi (occasional) Percussion: Bilateral: not dull Cardiovascular: regular rate and rhythm, irregular rhythm Gastrointestinal: normoactive bowel sounds, soft, non-tender Extremities: no cyanosis, no edema Neurologic: other (RASS 0 ) CBC and BMP: 04/18/16 05:20 04/18/16 05:20 ABG, PT/INR, D-dimer: ABG POC ABG pH 7.433 (7.35-7.45) 04/17/16 05:10 POC ABG pCO2 32.7 (35-45) L 04/17/16 05:10 POC ABG pO2 68 (80-105) L 04/17/16 05:10 POC ABG HCO3 21.8 04/17/16 05:10 POC ABG Total CO2 23 04/17/16 05:10 POC ABG O2 Sat 94 04/17/16 05:10 PT/INR, D-dimer PT 17.4 Sec. (12.2-14.9) H 04/17/16 05:41 INR 1.43 (0.87-1.13) H 04/17/16 05:41 Abnormal lab findings: Abnormal Labs 03/24/16 03/24/16 03/24/16 17:58 20:25 23:23 WBC RBC Hgb Hct MCV MCH MCHC RDW Plt Count Lymph % (Auto) Barron % (Auto) Lymph # Barron # Baso # Seg Neutrophils % Seg Neuts % (Manual) Lymphocytes % (Manual) Seg Neutrophils # Seg Neutrophils # Man Lymphocytes # (Manual) Monocytes # (Manual) PT INR APTT Heparin Anti-Xa Level POC ABG pH POC ABG pCO2 POC ABG pO2 Sodium 169 H* Potassium 3.5 L Chloride 130.3 H Carbon Dioxide BUN 28 H Creatinine 1.8 H Glucose POC Glucose 112 H Calcium Phosphorus Lactate Dehydrogenase Total Creatine Kinase NT-Pro-B Natriuret Pep Albumin Rughu-8-Lpjifgglz Zzidl-1-Dilpgucsm Beta Globulins PEP Interpretation Cholesterol 221 H LDL Cholesterol Direct 146 H 03/25/16 03/25/16 03/25/16 05:56 05:56 05:56 WBC 21.3 H RBC 6.32 H Hgb 16.7 H Hct 52.7 H MCV 83 L MCH 27 L MCHC RDW Plt Count Lymph % (Auto) Barron % (Auto) Lymph # Barron # Baso # Seg Neutrophils % Seg Neuts % (Manual) 91.0 H Lymphocytes % (Manual) 4.0 L Seg Neutrophils # Seg Neutrophils # Man 19.4 H Lymphocytes # (Manual) 0.9 L Monocytes # (Manual) 0.9 H PT INR APTT Heparin Anti-Xa Level POC ABG pH POC ABG pCO2 POC ABG pO2 Sodium 172 H* Potassium 3.5 L Chloride 130.4 H Carbon Dioxide BUN 29 H Creatinine 1.8 H Glucose 187 H POC Glucose Calcium Phosphorus Lactate Dehydrogenase 460 H Total Creatine Kinase NT-Pro-B Natriuret Pep Albumin Ownhk-8-Unciugqby Qrzkt-0-Nqlvfiafk Beta Globulins PEP Interpretation Cholesterol LDL Cholesterol Direct 03/25/16 03/25/16 03/25/16 07:55 12:19 13:00 WBC RBC Hgb Hct MCV MCH MCHC RDW Plt Count Lymph % (Auto) Barron % (Auto) Lymph # Barron # Baso # Seg Neutrophils % Seg Neuts % (Manual) Lymphocytes % (Manual) Seg Neutrophils # Seg Neutrophils # Man Lymphocytes # (Manual) Monocytes # (Manual) PT INR APTT Heparin Anti-Xa Level POC ABG pH POC ABG pCO2 POC ABG pO2 Sodium Potassium Chloride Carbon Dioxide BUN Creatinine Glucose POC Glucose 231 H 314 H Calcium Phosphorus Lactate Dehydrogenase Total Creatine Kinase NT-Pro-B Natriuret Pep Albumin 3.4 L Tdqwy-5-Pfdmomajs 0.4 H Laima-2-Gpbzwdpgv 1.1 H Beta Globulins 0.6 H PEP Interpretation see below H Cholesterol LDL Cholesterol Direct 03/25/16 03/25/16 03/26/16 16:41 22:45 08:32 WBC RBC Hgb Hct MCV MCH MCHC RDW Plt Count Lymph % (Auto) Barron % (Auto) Lymph # Barron # Baso # Seg Neutrophils % Seg Neuts % (Manual) Lymphocytes % (Manual) Seg Neutrophils # Seg Neutrophils # Man Lymphocytes # (Manual) Monocytes # (Manual) PT INR APTT Heparin Anti-Xa Level POC ABG pH POC ABG pCO2 POC ABG pO2 Sodium Potassium Chloride Carbon Dioxide BUN Creatinine Glucose POC Glucose 444 H 326 H 360 H Calcium Phosphorus Lactate Dehydrogenase Total Creatine Kinase NT-Pro-B Natriuret Pep Albumin Fyigk-0-Mzyhlghgm Wwmfz-6-Hzekilrws Beta Globulins PEP Interpretation Cholesterol LDL Cholesterol Direct 03/26/16 03/26/16 03/26/16 12:38 15:33 15:47 WBC RBC Hgb Hct MCV MCH MCHC RDW Plt Count Lymph % (Auto) Barron % (Auto) Lymph # Barron # Baso # Seg Neutrophils % Seg Neuts % (Manual) Lymphocytes % (Manual) Seg Neutrophils # Seg Neutrophils # Man Lymphocytes # (Manual) Monocytes # (Manual) PT INR APTT Heparin Anti-Xa Level POC ABG pH 7.511 H POC ABG pCO2 26.5 L POC ABG pO2 70 L Sodium Potassium Chloride Carbon Dioxide BUN Creatinine Glucose POC Glucose 280 H 174 H Calcium Phosphorus Lactate Dehydrogenase Total Creatine Kinase NT-Pro-B Natriuret Pep Albumin Qtflg-9-Wslfqwmce Cnidh-0-Isvhzkcap Beta Globulins PEP Interpretation Cholesterol LDL Cholesterol Direct 03/26/16 03/26/16 03/26/16 16:47 16:47 18:51 WBC 14.0 H RBC 5.17 H Hgb Hct MCV MCH 26 L MCHC 31 L RDW Plt Count 139 L Lymph % (Auto) Barron % (Auto) Lymph # Barron # Baso # Seg Neutrophils % Seg Neuts % (Manual) Lymphocytes % (Manual) Seg Neutrophils # Seg Neutrophils # Man Lymphocytes # (Manual) Monocytes # (Manual) PT INR APTT Heparin Anti-Xa Level POC ABG pH POC ABG pCO2 33.9 L POC ABG pO2 150 H Sodium 164 H* Potassium 3.4 L Chloride 128.5 H Carbon Dioxide BUN 30 H Creatinine 2.2 H Glucose 121 H POC Glucose Calcium 8.1 L Phosphorus Lactate Dehydrogenase Total Creatine Kinase NT-Pro-B Natriuret Pep Albumin Kuabt-2-Bmagutdpq Jgnvt-5-Vszvqwyrt Beta Globulins PEP Interpretation Cholesterol LDL Cholesterol Direct 03/27/16 03/27/16 03/27/16 02:19 05:47 06:02 WBC RBC Hgb Hct MCV MCH MCHC RDW Plt Count Lymph % (Auto) Barron % (Auto) Lymph # Barron # Baso # Seg Neutrophils % Seg Neuts % (Manual) Lymphocytes % (Manual) Seg Neutrophils # Seg Neutrophils # Man Lymphocytes # (Manual) Monocytes # (Manual) PT INR APTT Heparin Anti-Xa Level POC ABG pH POC ABG pCO2 27.3 L 30.3 L POC ABG pO2 50 L 112 H Sodium 158 H Potassium Chloride 126.7 H Carbon Dioxide 20 L BUN 25 H Creatinine 1.7 H Glucose POC Glucose Calcium 7.0 L Phosphorus Lactate Dehydrogenase Total Creatine Kinase NT-Pro-B Natriuret Pep Albumin Ihnus-0-Volypadhx Pzmcc-8-Wtrfmwawr Beta Globulins PEP Interpretation Cholesterol LDL Cholesterol Direct 03/27/16 03/27/16 03/27/16 07:51 09:20 11:45 WBC 14.2 H RBC Hgb Hct MCV 83 L MCH 27 L MCHC RDW Plt Count 113 L Lymph % (Auto) Barron % (Auto) Lymph # Barron # Baso # Seg Neutrophils % Seg Neuts % (Manual) Lymphocytes % (Manual) Seg Neutrophils # Seg Neutrophils # Man Lymphocytes # (Manual) Monocytes # (Manual) PT INR APTT Heparin Anti-Xa Level POC ABG pH POC ABG pCO2 POC ABG pO2 Sodium Potassium Chloride Carbon Dioxide BUN Creatinine Glucose POC Glucose 124 H 241 H Calcium Phosphorus Lactate Dehydrogenase Total Creatine Kinase NT-Pro-B Natriuret Pep Albumin Nxeqv-7-Ycqahgvwc Pnkde-2-Dzjsdqwqr Beta Globulins PEP Interpretation Cholesterol LDL Cholesterol Direct 03/27/16 03/27/16 03/28/16 16:39 22:03 03:29 WBC RBC Hgb Hct MCV MCH MCHC RDW Plt Count Lymph % (Auto) Barron % (Auto) Lymph # Barron # Baso # Seg Neutrophils % Seg Neuts % (Manual) Lymphocytes % (Manual) Seg Neutrophils # Seg Neutrophils # Man Lymphocytes # (Manual) Monocytes # (Manual) PT INR APTT Heparin Anti-Xa Level POC ABG pH POC ABG pCO2 POC ABG pO2 Sodium Potassium Chloride Carbon Dioxide BUN Creatinine Glucose POC Glucose 266 H 167 H 241 H Calcium Phosphorus Lactate Dehydrogenase Total Creatine Kinase NT-Pro-B Natriuret Pep Albumin Pejaz-5-Bhzssdxky Hjtuz-5-Tnplgcgsr Beta Globulins PEP Interpretation Cholesterol LDL Cholesterol Direct 03/28/16 03/28/16 03/28/16 05:00 05:00 05:00 WBC RBC Hgb Hct MCV 83 L MCH 27 L MCHC RDW Plt Count 106 L Lymph % (Auto) Barron % (Auto) 10.1 H Lymph # Barron # 1.0 H Baso # Seg Neutrophils % 75.1 H Seg Neuts % (Manual) Lymphocytes % (Manual) Seg Neutrophils # Seg Neutrophils # Man Lymphocytes # (Manual) Monocytes # (Manual) PT INR APTT Heparin Anti-Xa Level POC ABG pH POC ABG pCO2 POC ABG pO2 Sodium 147 H D Potassium 3.1 L D Chloride 112.3 H Carbon Dioxide 21 L BUN Creatinine Glucose 208 H POC Glucose Calcium 7.0 L Phosphorus 2.2 L Lactate Dehydrogenase Total Creatine Kinase NT-Pro-B Natriuret Pep Albumin Dnuiw-0-Cdvbrxxje Xcpgr-4-Jauzgzuek Beta Globulins PEP Interpretation Cholesterol LDL Cholesterol Direct 03/28/16 03/28/16 03/28/16 05:14 08:41 10:56 WBC RBC Hgb Hct MCV MCH MCHC RDW Plt Count Lymph % (Auto) Barron % (Auto) Lymph # Barron # Baso # Seg Neutrophils % Seg Neuts % (Manual) Lymphocytes % (Manual) Seg Neutrophils # Seg Neutrophils # Man Lymphocytes # (Manual) Monocytes # (Manual) PT INR APTT Heparin Anti-Xa Level POC ABG pH 7.457 H POC ABG pCO2 29.7 L 27.7 L POC ABG pO2 Sodium Potassium Chloride Carbon Dioxide BUN Creatinine Glucose POC Glucose 228 H Calcium Phosphorus Lactate Dehydrogenase Total Creatine Kinase NT-Pro-B Natriuret Pep Albumin Kxaer-9-Tzoprxadv Hyjoc-7-Plvcbbico Beta Globulins PEP Interpretation Cholesterol LDL Cholesterol Direct 03/28/16 03/28/16 03/28/16 11:37 13:29 16:22 WBC RBC Hgb Hct MCV MCH MCHC RDW Plt Count Lymph % (Auto) Barron % (Auto) Lymph # Barron # Baso # Seg Neutrophils % Seg Neuts % (Manual) Lymphocytes % (Manual) Seg Neutrophils # Seg Neutrophils # Man Lymphocytes # (Manual) Monocytes # (Manual) PT INR APTT Heparin Anti-Xa Level POC ABG pH POC ABG pCO2 POC ABG pO2 Sodium Potassium Chloride Carbon Dioxide BUN Creatinine Glucose POC Glucose 226 H 200 H Calcium Phosphorus Lactate Dehydrogenase Total Creatine Kinase 356 H NT-Pro-B Natriuret Pep Albumin Rjrig-9-Rzamydrqv Pzwfd-8-Wbgqumurj Beta Globulins PEP Interpretation Cholesterol LDL Cholesterol Direct 03/28/16 03/29/16 03/29/16 21:48 04:50 04:50 WBC RBC Hgb 11.5 L Hct 35.3 L MCV 81 L MCH 26 L MCHC RDW Plt Count 97 L Lymph % (Auto) Barron % (Auto) 11.7 H Lymph # Barron # 1.1 H Baso # Seg Neutrophils % Seg Neuts % (Manual) Lymphocytes % (Manual) Seg Neutrophils # Seg Neutrophils # Man Lymphocytes # (Manual) Monocytes # (Manual) PT INR APTT Heparin Anti-Xa Level POC ABG pH POC ABG pCO2 POC ABG pO2 Sodium 136 L D Potassium 3.3 L Chloride Carbon Dioxide 20 L BUN Creatinine Glucose 386 H POC Glucose 188 H Calcium 6.8 L Phosphorus 1.6 L D Lactate Dehydrogenase Total Creatine Kinase NT-Pro-B Natriuret Pep Albumin Yfhyz-3-Phfxpjyuz Ahhtt-0-Hkolwyrgj Beta Globulins PEP Interpretation Cholesterol LDL Cholesterol Direct 03/29/16 03/29/16 03/29/16 08:10 11:12 16:09 WBC RBC Hgb Hct MCV MCH MCHC RDW Plt Count Lymph % (Auto) Barron % (Auto) Lymph # Barron # Baso # Seg Neutrophils % Seg Neuts % (Manual) Lymphocytes % (Manual) Seg Neutrophils # Seg Neutrophils # Man Lymphocytes # (Manual) Monocytes # (Manual) PT INR APTT Heparin Anti-Xa Level POC ABG pH POC ABG pCO2 POC ABG pO2 Sodium Potassium Chloride Carbon Dioxide BUN Creatinine Glucose POC Glucose 230 H 180 H 46 L Calcium Phosphorus Lactate Dehydrogenase Total Creatine Kinase NT-Pro-B Natriuret Pep Albumin Eqnsf-0-Fbadjcraf Oyvbq-5-Vkgeevblx Beta Globulins PEP Interpretation Cholesterol LDL Cholesterol Direct 03/29/16 03/29/16 03/30/16 16:12 18:15 02:53 WBC RBC Hgb Hct MCV MCH MCHC RDW Plt Count Lymph % (Auto) Barron % (Auto) Lymph # Barron # Baso # Seg Neutrophils % Seg Neuts % (Manual) Lymphocytes % (Manual) Seg Neutrophils # Seg Neutrophils # Man Lymphocytes # (Manual) Monocytes # (Manual) PT INR APTT Heparin Anti-Xa Level POC ABG pH POC ABG pCO2 POC ABG pO2 Sodium Potassium Chloride Carbon Dioxide BUN Creatinine Glucose POC Glucose 52 L 118 H 130 H Calcium Phosphorus Lactate Dehydrogenase Total Creatine Kinase NT-Pro-B Natriuret Pep Albumin Rwefp-8-Sjqugfqtw Hugic-3-Embriqxkf Beta Globulins PEP Interpretation Cholesterol LDL Cholesterol Direct 03/30/16 03/30/16 03/30/16 04:00 04:00 05:29 WBC RBC Hgb Hct MCV 81 L MCH 26 L MCHC RDW Plt Count 116 L Lymph % (Auto) 10.8 L Barron % (Auto) 13.1 H Lymph # 1.0 L Barron # 1.3 H Baso # Seg Neutrophils % 74.2 H Seg Neuts % (Manual) Lymphocytes % (Manual) Seg Neutrophils # Seg Neutrophils # Man Lymphocytes # (Manual) Monocytes # (Manual) PT INR APTT Heparin Anti-Xa Level POC ABG pH 7.522 H POC ABG pCO2 22.7 L POC ABG pO2 137 H Sodium 147 H D Potassium Chloride 115.5 H Carbon Dioxide 20 L BUN Creatinine Glucose 116 H POC Glucose Calcium 7.6 L Phosphorus 2.3 L D Lactate Dehydrogenase Total Creatine Kinase NT-Pro-B Natriuret Pep Albumin Assic-1-Mzqhbtjrt Crzhi-5-Nkzuydftm Beta Globulins PEP Interpretation Cholesterol LDL Cholesterol Direct 03/30/16 03/30/16 03/30/16 05:47 08:05 08:59 WBC RBC Hgb Hct MCV MCH MCHC RDW Plt Count Lymph % (Auto) Barron % (Auto) Lymph # Barron # Baso # Seg Neutrophils % Seg Neuts % (Manual) Lymphocytes % (Manual) Seg Neutrophils # Seg Neutrophils # Man Lymphocytes # (Manual) Monocytes # (Manual) PT INR APTT Heparin Anti-Xa Level POC ABG pH POC ABG pCO2 26.2 L POC ABG pO2 115 H Sodium Potassium Chloride Carbon Dioxide BUN Creatinine Glucose POC Glucose 138 H 171 H Calcium Phosphorus Lactate Dehydrogenase Total Creatine Kinase NT-Pro-B Natriuret Pep Albumin Pxmjn-2-Myomognuu Emsgh-6-Opeebffjq Beta Globulins PEP Interpretation Cholesterol LDL Cholesterol Direct 03/30/16 03/30/16 03/30/16 12:11 12:11 16:39 WBC RBC Hgb Hct MCV MCH MCHC RDW Plt Count Lymph % (Auto) Barron % (Auto) Lymph # Barron # Baso # Seg Neutrophils % Seg Neuts % (Manual) Lymphocytes % (Manual) Seg Neutrophils # Seg Neutrophils # Man Lymphocytes # (Manual) Monocytes # (Manual) PT INR APTT Heparin Anti-Xa Level POC ABG pH 7.476 H POC ABG pCO2 29.0 L POC ABG pO2 Sodium Potassium Chloride Carbon Dioxide BUN Creatinine Glucose POC Glucose 142 H 59 L Calcium Phosphorus Lactate Dehydrogenase Total Creatine Kinase NT-Pro-B Natriuret Pep Albumin Absfn-3-Knjhhdhhq Ttsjq-1-Ltacoival Beta Globulins PEP Interpretation Cholesterol LDL Cholesterol Direct 03/30/16 03/30/16 03/31/16 18:41 21:59 05:02 WBC RBC Hgb Hct MCV MCH MCHC RDW Plt Count Lymph % (Auto) Barron % (Auto) Lymph # Barron # Baso # Seg Neutrophils % Seg Neuts % (Manual) Lymphocytes % (Manual) Seg Neutrophils # Seg Neutrophils # Man Lymphocytes # (Manual) Monocytes # (Manual) PT INR APTT Heparin Anti-Xa Level POC ABG pH 7.519 H POC ABG pCO2 21.8 L POC ABG pO2 142 H Sodium Potassium Chloride Carbon Dioxide BUN Creatinine Glucose POC Glucose 145 H 154 H Calcium Phosphorus Lactate Dehydrogenase Total Creatine Kinase NT-Pro-B Natriuret Pep Albumin Gbuuz-3-Lclntvfno Pleah-7-Vjdhkbjka Beta Globulins PEP Interpretation Cholesterol LDL Cholesterol Direct 03/31/16 03/31/16 03/31/16 05:15 05:15 05:15 WBC 13.4 H RBC 5.21 H Hgb Hct MCV 81 L MCH 26 L MCHC RDW Plt Count Lymph % (Auto) 9.5 L Barron % (Auto) 14.0 H Lymph # Barron # 1.9 H Baso # Seg Neutrophils % 75.0 H Seg Neuts % (Manual) Lymphocytes % (Manual) Seg Neutrophils # 10.1 H Seg Neutrophils # Man Lymphocytes # (Manual) Monocytes # (Manual) PT INR APTT Heparin Anti-Xa Level POC ABG pH POC ABG pCO2 POC ABG pO2 Sodium Potassium Chloride 108.5 H Carbon Dioxide 19 L BUN Creatinine Glucose 188 H POC Glucose Calcium Phosphorus Lactate Dehydrogenase Total Creatine Kinase NT-Pro-B Natriuret Pep 1089 H Albumin Nyvxz-2-Ytyuhwlfi Uihrh-5-Wvgshosuc Beta Globulins PEP Interpretation Cholesterol LDL Cholesterol Direct 03/31/16 03/31/16 03/31/16 07:23 11:12 15:20 WBC RBC Hgb Hct MCV MCH MCHC RDW Plt Count Lymph % (Auto) Barron % (Auto) Lymph # Barron # Baso # Seg Neutrophils % Seg Neuts % (Manual) Lymphocytes % (Manual) Seg Neutrophils # Seg Neutrophils # Man Lymphocytes # (Manual) Monocytes # (Manual) PT INR APTT Heparin Anti-Xa Level POC ABG pH POC ABG pCO2 POC ABG pO2 Sodium Potassium Chloride Carbon Dioxide BUN Creatinine Glucose POC Glucose 233 H 228 H 208 H Calcium Phosphorus Lactate Dehydrogenase Total Creatine Kinase NT-Pro-B Natriuret Pep Albumin Glryr-8-Lfvxdsijz Xpspz-9-Zpmoplnmd Beta Globulins PEP Interpretation Cholesterol LDL Cholesterol Direct 03/31/16 04/01/16 04/01/16 21:27 04:41 05:35 WBC 12.1 H RBC Hgb Hct MCV 81 L MCH 26 L MCHC RDW Plt Count Lymph % (Auto) 8.5 L Barron % (Auto) 14.0 H Lymph # 1.0 L Barron # 1.7 H Baso # Seg Neutrophils % 76.2 H Seg Neuts % (Manual) Lymphocytes % (Manual) Seg Neutrophils # 9.2 H Seg Neutrophils # Man Lymphocytes # (Manual) Monocytes # (Manual) PT INR APTT Heparin Anti-Xa Level POC ABG pH 7.455 H POC ABG pCO2 31.0 L POC ABG pO2 Sodium Potassium Chloride Carbon Dioxide BUN Creatinine Glucose POC Glucose 162 H Calcium Phosphorus Lactate Dehydrogenase Total Creatine Kinase NT-Pro-B Natriuret Pep Albumin Uxidv-9-Lcimrsciu Tpqrl-0-Fdbddvmaj Beta Globulins PEP Interpretation Cholesterol LDL Cholesterol Direct 04/01/16 04/01/16 04/01/16 05:35 08:44 12:49 WBC RBC Hgb Hct MCV MCH MCHC RDW Plt Count Lymph % (Auto) Barron % (Auto) Lymph # Barron # Baso # Seg Neutrophils % Seg Neuts % (Manual) Lymphocytes % (Manual) Seg Neutrophils # Seg Neutrophils # Man Lymphocytes # (Manual) Monocytes # (Manual) PT INR APTT Heparin Anti-Xa Level POC ABG pH POC ABG pCO2 POC ABG pO2 Sodium Potassium Chloride Carbon Dioxide BUN Creatinine Glucose 256 H POC Glucose 257 H 279 H Calcium 8.0 L Phosphorus Lactate Dehydrogenase Total Creatine Kinase NT-Pro-B Natriuret Pep 1205 H Albumin Virvq-1-Sgavggkuw Hfxmv-2-Qkaivzjfw Beta Globulins PEP Interpretation Cholesterol LDL Cholesterol Direct 04/01/16 04/02/16 04/02/16 18:12 00:42 04:17 WBC RBC Hgb Hct MCV MCH MCHC RDW Plt Count Lymph % (Auto) Barron % (Auto) Lymph # Barron # Baso # Seg Neutrophils % Seg Neuts % (Manual) Lymphocytes % (Manual) Seg Neutrophils # Seg Neutrophils # Man Lymphocytes # (Manual) Monocytes # (Manual) PT INR APTT Heparin Anti-Xa Level POC ABG pH 7.582 H POC ABG pCO2 26.8 L POC ABG pO2 Sodium Potassium Chloride Carbon Dioxide BUN Creatinine Glucose POC Glucose 168 H 282 H Calcium Phosphorus Lactate Dehydrogenase Total Creatine Kinase NT-Pro-B Natriuret Pep Albumin Cgdkv-8-Efonyybzp Xlmiu-4-Jfwlkkqyr Beta Globulins PEP Interpretation Cholesterol LDL Cholesterol Direct 04/02/16 04/02/16 04/02/16 05:00 05:00 06:27 WBC 12.4 H RBC Hgb Hct MCV 81 L MCH 26 L MCHC RDW Plt Count Lymph % (Auto) 6.4 L Barron % (Auto) 13.3 H Lymph # 0.8 L Barron # 1.7 H Baso # Seg Neutrophils % 79.4 H Seg Neuts % (Manual) Lymphocytes % (Manual) Seg Neutrophils # 9.9 H Seg Neutrophils # Man Lymphocytes # (Manual) Monocytes # (Manual) PT INR APTT Heparin Anti-Xa Level POC ABG pH POC ABG pCO2 POC ABG pO2 Sodium 146 H Potassium Chloride Carbon Dioxide BUN Creatinine Glucose 334 H POC Glucose 317 H Calcium 8.0 L Phosphorus Lactate Dehydrogenase Total Creatine Kinase NT-Pro-B Natriuret Pep Albumin Sjaxs-6-Dbdrrwcll Cimwk-4-Jcubggcyt Beta Globulins PEP Interpretation Cholesterol LDL Cholesterol Direct 04/02/16 04/02/16 04/02/16 11:51 13:10 17:24 WBC RBC Hgb Hct MCV MCH MCHC RDW Plt Count Lymph % (Auto) Barron % (Auto) Lymph # Barron # Baso # Seg Neutrophils % Seg Neuts % (Manual) Lymphocytes % (Manual) Seg Neutrophils # Seg Neutrophils # Man Lymphocytes # (Manual) Monocytes # (Manual) PT INR APTT Heparin Anti-Xa Level POC ABG pH 7.518 H POC ABG pCO2 POC ABG pO2 Sodium Potassium Chloride Carbon Dioxide BUN Creatinine Glucose POC Glucose 278 H 195 H Calcium Phosphorus Lactate Dehydrogenase Total Creatine Kinase NT-Pro-B Natriuret Pep Albumin Kjmfv-5-Joygqalww Phvxg-4-Bgmuttibj Beta Globulins PEP Interpretation Cholesterol LDL Cholesterol Direct 04/03/16 04/03/16 04/03/16 00:18 04:10 04:10 WBC 14.3 H RBC Hgb Hct MCV 81 L MCH 26 L MCHC RDW Plt Count Lymph % (Auto) 9.0 L Barron % (Auto) 10.7 H Lymph # Barron # 1.5 H Baso # 0.2 H Seg Neutrophils % 78.5 H Seg Neuts % (Manual) Lymphocytes % (Manual) Seg Neutrophils # 11.3 H Seg Neutrophils # Man Lymphocytes # (Manual) Monocytes # (Manual) PT INR APTT Heparin Anti-Xa Level POC ABG pH POC ABG pCO2 POC ABG pO2 Sodium 148 H Potassium Chloride 108.1 H Carbon Dioxide BUN 21 H Creatinine Glucose 227 H POC Glucose 144 H Calcium 8.2 L Phosphorus Lactate Dehydrogenase Total Creatine Kinase NT-Pro-B Natriuret Pep Albumin Umbzh-3-Umtnncdhr Qsbgi-7-Enwebymjy Beta Globulins PEP Interpretation Cholesterol LDL Cholesterol Direct 04/03/16 04/03/16 04/04/16 11:14 17:10 04:00 WBC 14.5 H RBC Hgb Hct MCV 81 L MCH 26 L MCHC RDW Plt Count Lymph % (Auto) 7.2 L Barron % (Auto) 7.6 H Lymph # 1.0 L Barron # 1.1 H Baso # Seg Neutrophils % 84.5 H Seg Neuts % (Manual) Lymphocytes % (Manual) Seg Neutrophils # 12.3 H Seg Neutrophils # Man Lymphocytes # (Manual) Monocytes # (Manual) PT INR APTT Heparin Anti-Xa Level POC ABG pH POC ABG pCO2 POC ABG pO2 Sodium Potassium Chloride Carbon Dioxide BUN Creatinine Glucose POC Glucose 267 H 212 H Calcium Phosphorus Lactate Dehydrogenase Total Creatine Kinase NT-Pro-B Natriuret Pep Albumin Njktm-2-Mllpnpajb Amuqx-8-Enbmjajce Beta Globulins PEP Interpretation Cholesterol LDL Cholesterol Direct 04/04/16 04/04/16 04/04/16 05:00 09:55 09:55 WBC RBC Hgb 11.5 L Hct MCV MCH MCHC RDW Plt Count Lymph % (Auto) Barron % (Auto) Lymph # Barron # Baso # Seg Neutrophils % Seg Neuts % (Manual) Lymphocytes % (Manual) Seg Neutrophils # Seg Neutrophils # Man Lymphocytes # (Manual) Monocytes # (Manual) PT INR APTT 42.1 H Heparin Anti-Xa Level POC ABG pH POC ABG pCO2 POC ABG pO2 Sodium 146 H Potassium Chloride Carbon Dioxide BUN 22 H Creatinine Glucose 128 H POC Glucose Calcium Phosphorus Lactate Dehydrogenase Total Creatine Kinase NT-Pro-B Natriuret Pep Albumin Tacfc-7-Zdnfbfrcl Mlfwk-1-Zlasainvn Beta Globulins PEP Interpretation Cholesterol LDL Cholesterol Direct 04/04/16 04/04/16 04/04/16 11:45 17:49 17:55 WBC RBC Hgb Hct MCV MCH MCHC RDW Plt Count Lymph % (Auto) Barron % (Auto) Lymph # Barron # Baso # Seg Neutrophils % Seg Neuts % (Manual) Lymphocytes % (Manual) Seg Neutrophils # Seg Neutrophils # Man Lymphocytes # (Manual) Monocytes # (Manual) PT INR APTT Heparin Anti-Xa Level 1.19 H POC ABG pH POC ABG pCO2 POC ABG pO2 Sodium Potassium Chloride Carbon Dioxide BUN Creatinine Glucose POC Glucose 231 H 186 H Calcium Phosphorus Lactate Dehydrogenase Total Creatine Kinase NT-Pro-B Natriuret Pep Albumin Mtfiz-2-Uajnnyoso Yxobp-8-Ctfahofkt Beta Globulins PEP Interpretation Cholesterol LDL Cholesterol Direct 04/05/16 04/05/16 04/05/16 00:35 05:32 05:42 WBC RBC Hgb Hct MCV MCH MCHC RDW Plt Count Lymph % (Auto) Barron % (Auto) Lymph # Barron # Baso # Seg Neutrophils % Seg Neuts % (Manual) Lymphocytes % (Manual) Seg Neutrophils # Seg Neutrophils # Man Lymphocytes # (Manual) Monocytes # (Manual) PT INR APTT Heparin Anti-Xa Level POC ABG pH 7.491 H POC ABG pCO2 POC ABG pO2 Sodium Potassium Chloride Carbon Dioxide BUN Creatinine Glucose POC Glucose 192 H 242 H Calcium Phosphorus Lactate Dehydrogenase Total Creatine Kinase NT-Pro-B Natriuret Pep Albumin Sdsll-6-Obemzvlex Jtaev-8-Pshemcryr Beta Globulins PEP Interpretation Cholesterol LDL Cholesterol Direct 04/05/16 04/05/16 04/05/16 06:20 06:20 12:19 WBC 13.9 H RBC Hgb 11.6 L Hct MCV 81 L MCH 26 L MCHC RDW Plt Count Lymph % (Auto) 9.6 L Barron % (Auto) 8.7 H Lymph # Barron # 1.2 H Baso # Seg Neutrophils % 80.9 H Seg Neuts % (Manual) Lymphocytes % (Manual) Seg Neutrophils # 11.3 H Seg Neutrophils # Man Lymphocytes # (Manual) Monocytes # (Manual) PT INR APTT Heparin Anti-Xa Level POC ABG pH POC ABG pCO2 POC ABG pO2 Sodium 148 H Potassium Chloride Carbon Dioxide BUN 23 H Creatinine Glucose 242 H POC Glucose 187 H Calcium Phosphorus Lactate Dehydrogenase Total Creatine Kinase NT-Pro-B Natriuret Pep Albumin Vurgs-5-Cromitewy Vklfg-5-Qjsavwzqb Beta Globulins PEP Interpretation Cholesterol LDL Cholesterol Direct 04/05/16 04/05/16 04/06/16 17:10 23:45 05:23 WBC 13.0 H RBC Hgb Hct MCV 82 L MCH 26 L MCHC 31 L RDW Plt Count Lymph % (Auto) 6.7 L Barron % (Auto) 8.3 H Lymph # 0.9 L Barron # 1.1 H Baso # Seg Neutrophils % 84.6 H Seg Neuts % (Manual) Lymphocytes % (Manual) Seg Neutrophils # 11.0 H Seg Neutrophils # Man Lymphocytes # (Manual) Monocytes # (Manual) PT INR APTT Heparin Anti-Xa Level POC ABG pH POC ABG pCO2 POC ABG pO2 Sodium Potassium Chloride Carbon Dioxide BUN Creatinine Glucose POC Glucose 169 H 202 H Calcium Phosphorus Lactate Dehydrogenase Total Creatine Kinase NT-Pro-B Natriuret Pep Albumin Eiash-5-Jlpswyxoh Oqeui-5-Ivnotzwwu Beta Globulins PEP Interpretation Cholesterol LDL Cholesterol Direct 04/06/16 04/06/16 04/06/16 05:23 05:23 06:11 WBC RBC Hgb Hct MCV MCH MCHC RDW Plt Count Lymph % (Auto) Barron % (Auto) Lymph # Barron # Baso # Seg Neutrophils % Seg Neuts % (Manual) Lymphocytes % (Manual) Seg Neutrophils # Seg Neutrophils # Man Lymphocytes # (Manual) Monocytes # (Manual) PT INR APTT Heparin Anti-Xa Level 0.21 L POC ABG pH POC ABG pCO2 POC ABG pO2 Sodium 153 H Potassium Chloride 111.3 H Carbon Dioxide BUN 22 H Creatinine Glucose 62 L POC Glucose 56 L Calcium Phosphorus Lactate Dehydrogenase Total Creatine Kinase NT-Pro-B Natriuret Pep Albumin Kgdxp-0-Ffmdhuxzs Fsbkt-2-Zcgecraaw Beta Globulins PEP Interpretation Cholesterol LDL Cholesterol Direct 04/06/16 04/06/16 04/06/16 06:52 11:36 14:58 WBC RBC Hgb Hct MCV MCH MCHC RDW Plt Count Lymph % (Auto) Barron % (Auto) Lymph # Barron # Baso # Seg Neutrophils % Seg Neuts % (Manual) Lymphocytes % (Manual) Seg Neutrophils # Seg Neutrophils # Man Lymphocytes # (Manual) Monocytes # (Manual) PT INR APTT Heparin Anti-Xa Level POC ABG pH POC ABG pCO2 POC ABG pO2 Sodium Potassium Chloride Carbon Dioxide BUN Creatinine Glucose POC Glucose 206 H 139 H 147 H Calcium Phosphorus Lactate Dehydrogenase Total Creatine Kinase NT-Pro-B Natriuret Pep Albumin Viyae-3-Qepwygens Vmytd-7-Ncyyovqgk Beta Globulins PEP Interpretation Cholesterol LDL Cholesterol Direct 04/06/16 04/06/16 04/06/16 16:03 21:18 23:53 WBC RBC Hgb Hct MCV MCH MCHC RDW Plt Count Lymph % (Auto) Barron % (Auto) Lymph # Barron # Baso # Seg Neutrophils % Seg Neuts % (Manual) Lymphocytes % (Manual) Seg Neutrophils # Seg Neutrophils # Man Lymphocytes # (Manual) Monocytes # (Manual) PT INR APTT Heparin Anti-Xa Level POC ABG pH POC ABG pCO2 POC ABG pO2 Sodium Potassium Chloride Carbon Dioxide BUN Creatinine Glucose POC Glucose 154 H 293 H 301 H Calcium Phosphorus Lactate Dehydrogenase Total Creatine Kinase NT-Pro-B Natriuret Pep Albumin Jiyhu-5-Frrcllmhj Ypjov-3-Hccjkufgu Beta Globulins PEP Interpretation Cholesterol LDL Cholesterol Direct 04/07/16 04/07/16 04/07/16 02:30 05:11 05:11 WBC 12.5 H RBC Hgb 11.5 L Hct MCV 82 L MCH 26 L MCHC 31 L RDW Plt Count Lymph % (Auto) Barron % (Auto) Lymph # Barron # Baso # Seg Neutrophils % Seg Neuts % (Manual) Lymphocytes % (Manual) Seg Neutrophils # Seg Neutrophils # Man Lymphocytes # (Manual) Monocytes # (Manual) PT INR APTT Heparin Anti-Xa Level 0.11 L POC ABG pH POC ABG pCO2 POC ABG pO2 Sodium 150 H Potassium Chloride 109.5 H Carbon Dioxide BUN 28 H Creatinine Glucose 264 H POC Glucose Calcium Phosphorus Lactate Dehydrogenase Total Creatine Kinase NT-Pro-B Natriuret Pep Albumin Vleur-1-Rjccvhwbj Vltbx-3-Durhkzvyr Beta Globulins PEP Interpretation Cholesterol LDL Cholesterol Direct 04/07/16 04/07/16 04/07/16 06:46 10:18 11:50 WBC RBC Hgb Hct MCV MCH MCHC RDW Plt Count Lymph % (Auto) Barron % (Auto) Lymph # Barron # Baso # Seg Neutrophils % Seg Neuts % (Manual) Lymphocytes % (Manual) Seg Neutrophils # Seg Neutrophils # Man Lymphocytes # (Manual) Monocytes # (Manual) PT 15.1 H INR 1.20 H APTT Heparin Anti-Xa Level POC ABG pH POC ABG pCO2 POC ABG pO2 Sodium Potassium Chloride Carbon Dioxide BUN Creatinine Glucose POC Glucose 259 H 288 H Calcium Phosphorus Lactate Dehydrogenase Total Creatine Kinase NT-Pro-B Natriuret Pep Albumin Plxjt-2-Qreedmxvk Xsdwp-1-Cagctvryd Beta Globulins PEP Interpretation Cholesterol LDL Cholesterol Direct 04/07/16 04/08/16 04/08/16 17:58 01:25 06:49 WBC RBC Hgb Hct MCV MCH MCHC RDW Plt Count Lymph % (Auto) Barron % (Auto) Lymph # Barron # Baso # Seg Neutrophils % Seg Neuts % (Manual) Lymphocytes % (Manual) Seg Neutrophils # Seg Neutrophils # Man Lymphocytes # (Manual) Monocytes # (Manual) PT INR APTT Heparin Anti-Xa Level POC ABG pH POC ABG pCO2 POC ABG pO2 Sodium 156 H Potassium Chloride 114.7 H Carbon Dioxide BUN 33 H Creatinine Glucose 169 H POC Glucose 330 H 146 H Calcium Phosphorus Lactate Dehydrogenase Total Creatine Kinase NT-Pro-B Natriuret Pep Albumin Llvoa-0-Gjwilcabb Xzkqa-6-Joqoleylt Beta Globulins PEP Interpretation Cholesterol LDL Cholesterol Direct 04/08/16 04/08/16 04/08/16 07:34 10:28 10:28 WBC RBC Hgb Hct MCV MCH MCHC RDW Plt Count Lymph % (Auto) Barron % (Auto) Lymph # Barron # Baso # Seg Neutrophils % Seg Neuts % (Manual) Lymphocytes % (Manual) Seg Neutrophils # Seg Neutrophils # Man Lymphocytes # (Manual) Monocytes # (Manual) PT 15.5 H INR 1.24 H APTT Heparin Anti-Xa Level 0.24 L POC ABG pH POC ABG pCO2 POC ABG pO2 Sodium Potassium Chloride Carbon Dioxide BUN Creatinine Glucose POC Glucose 232 H Calcium Phosphorus Lactate Dehydrogenase Total Creatine Kinase NT-Pro-B Natriuret Pep Albumin Ypbyl-9-Spqzdfzca Xqifj-2-Wzcjoevns Beta Globulins PEP Interpretation Cholesterol LDL Cholesterol Direct 04/08/16 04/08/16 04/09/16 11:36 15:38 00:01 WBC RBC Hgb Hct MCV MCH MCHC RDW Plt Count Lymph % (Auto) Barron % (Auto) Lymph # Barron # Baso # Seg Neutrophils % Seg Neuts % (Manual) Lymphocytes % (Manual) Seg Neutrophils # Seg Neutrophils # Man Lymphocytes # (Manual) Monocytes # (Manual) PT INR APTT Heparin Anti-Xa Level POC ABG pH POC ABG pCO2 POC ABG pO2 Sodium Potassium Chloride Carbon Dioxide BUN Creatinine Glucose POC Glucose 193 H 163 H 180 H Calcium Phosphorus Lactate Dehydrogenase Total Creatine Kinase NT-Pro-B Natriuret Pep Albumin Txzrj-5-Dcluymppr Mtszt-0-Ejzzqcvps Beta Globulins PEP Interpretation Cholesterol LDL Cholesterol Direct 04/09/16 04/09/16 04/09/16 06:17 06:42 06:42 WBC RBC Hgb Hct MCV MCH MCHC RDW Plt Count Lymph % (Auto) Barron % (Auto) Lymph # Barron # Baso # Seg Neutrophils % Seg Neuts % (Manual) Lymphocytes % (Manual) Seg Neutrophils # Seg Neutrophils # Man Lymphocytes # (Manual) Monocytes # (Manual) PT 17.4 H INR 1.43 H APTT Heparin Anti-Xa Level POC ABG pH POC ABG pCO2 POC ABG pO2 Sodium 153 H Potassium Chloride 113.2 H Carbon Dioxide BUN 29 H Creatinine Glucose 301 H POC Glucose 249 H Calcium 8.3 L Phosphorus Lactate Dehydrogenase Total Creatine Kinase NT-Pro-B Natriuret Pep Albumin Eodvk-7-Xgkiouiou Emdbm-4-Kqrqtopmx Beta Globulins PEP Interpretation Cholesterol LDL Cholesterol Direct 04/09/16 04/09/16 04/09/16 07:37 11:26 15:45 WBC RBC Hgb Hct MCV MCH MCHC RDW Plt Count Lymph % (Auto) Barron % (Auto) Lymph # Barron # Baso # Seg Neutrophils % Seg Neuts % (Manual) Lymphocytes % (Manual) Seg Neutrophils # Seg Neutrophils # Man Lymphocytes # (Manual) Monocytes # (Manual) PT INR APTT Heparin Anti-Xa Level POC ABG pH POC ABG pCO2 POC ABG pO2 Sodium Potassium Chloride Carbon Dioxide BUN Creatinine Glucose POC Glucose 283 H 306 H 354 H Calcium Phosphorus Lactate Dehydrogenase Total Creatine Kinase NT-Pro-B Natriuret Pep Albumin Siwkr-6-Cszkstfhe Mxncp-7-Yhcjlfgze Beta Globulins PEP Interpretation Cholesterol LDL Cholesterol Direct 04/10/16 04/10/16 04/10/16 00:53 07:15 07:34 WBC RBC Hgb 11.3 L Hct MCV MCH MCHC RDW Plt Count Lymph % (Auto) Barron % (Auto) Lymph # Barron # Baso # Seg Neutrophils % Seg Neuts % (Manual) Lymphocytes % (Manual) Seg Neutrophils # Seg Neutrophils # Man Lymphocytes # (Manual) Monocytes # (Manual) PT INR APTT Heparin Anti-Xa Level POC ABG pH POC ABG pCO2 POC ABG pO2 Sodium Potassium Chloride Carbon Dioxide BUN Creatinine Glucose POC Glucose 323 H 311 H Calcium Phosphorus Lactate Dehydrogenase Total Creatine Kinase NT-Pro-B Natriuret Pep Albumin Bolhv-0-Xzcqbslfj Tgjqm-3-Rfcnowzrd Beta Globulins PEP Interpretation Cholesterol LDL Cholesterol Direct 04/10/16 04/10/16 04/10/16 07:34 07:34 11:25 WBC RBC Hgb Hct MCV MCH MCHC RDW Plt Count Lymph % (Auto) Barron % (Auto) Lymph # Barron # Baso # Seg Neutrophils % Seg Neuts % (Manual) Lymphocytes % (Manual) Seg Neutrophils # Seg Neutrophils # Man Lymphocytes # (Manual) Monocytes # (Manual) PT 17.3 H INR 1.42 H APTT Heparin Anti-Xa Level POC ABG pH POC ABG pCO2 POC ABG pO2 Sodium 158 H Potassium Chloride 118.6 H Carbon Dioxide BUN 30 H Creatinine Glucose 330 H POC Glucose 335 H Calcium 8.3 L Phosphorus Lactate Dehydrogenase Total Creatine Kinase NT-Pro-B Natriuret Pep Albumin Jzsqm-2-Nflajwtve Eokvz-1-Jgzuluvri Beta Globulins PEP Interpretation Cholesterol LDL Cholesterol Direct 04/10/16 04/11/16 04/11/16 16:21 00:29 07:47 WBC RBC Hgb Hct MCV MCH MCHC RDW Plt Count Lymph % (Auto) Barron % (Auto) Lymph # Barron # Baso # Seg Neutrophils % Seg Neuts % (Manual) Lymphocytes % (Manual) Seg Neutrophils # Seg Neutrophils # Man Lymphocytes # (Manual) Monocytes # (Manual) PT 18.4 H INR 1.53 H APTT Heparin Anti-Xa Level POC ABG pH POC ABG pCO2 POC ABG pO2 Sodium Potassium Chloride Carbon Dioxide BUN Creatinine Glucose POC Glucose 230 H 162 H Calcium Phosphorus Lactate Dehydrogenase Total Creatine Kinase NT-Pro-B Natriuret Pep Albumin Mffmw-6-Qwitjwgva Wpqci-3-Sxjbwvnqa Beta Globulins PEP Interpretation Cholesterol LDL Cholesterol Direct 04/11/16 04/11/16 04/12/16 07:47 11:22 04:54 WBC RBC Hgb 11.0 L Hct 35.0 L MCV MCH MCHC RDW Plt Count Lymph % (Auto) Barron % (Auto) Lymph # Barron # Baso # Seg Neutrophils % Seg Neuts % (Manual) Lymphocytes % (Manual) Seg Neutrophils # Seg Neutrophils # Man Lymphocytes # (Manual) Monocytes # (Manual) PT INR APTT Heparin Anti-Xa Level POC ABG pH POC ABG pCO2 POC ABG pO2 Sodium 155 H Potassium Chloride 114.5 H Carbon Dioxide BUN 23 H Creatinine Glucose 157 H POC Glucose 229 H Calcium Phosphorus Lactate Dehydrogenase Total Creatine Kinase NT-Pro-B Natriuret Pep Albumin Kvgyz-2-Ccrogofep Ruxns-9-Lmkoytfcu Beta Globulins PEP Interpretation Cholesterol LDL Cholesterol Direct 04/12/16 04/12/16 04/12/16 04:54 04:54 05:57 WBC RBC Hgb Hct MCV MCH MCHC RDW Plt Count Lymph % (Auto) Barron % (Auto) Lymph # Barron # Baso # Seg Neutrophils % Seg Neuts % (Manual) Lymphocytes % (Manual) Seg Neutrophils # Seg Neutrophils # Man Lymphocytes # (Manual) Monocytes # (Manual) PT 22.5 H INR 1.98 H APTT Heparin Anti-Xa Level 0.19 L POC ABG pH POC ABG pCO2 POC ABG pO2 Sodium 156 H Potassium Chloride 115.4 H Carbon Dioxide BUN 23 H Creatinine Glucose 143 H POC Glucose 194 H Calcium Phosphorus Lactate Dehydrogenase Total Creatine Kinase NT-Pro-B Natriuret Pep Albumin Dcbms-5-Gctoknvfu Nluyr-0-Bzpymowwm Beta Globulins PEP Interpretation Cholesterol LDL Cholesterol Direct 04/12/16 04/12/16 04/12/16 12:34 19:01 23:30 WBC RBC Hgb Hct MCV MCH MCHC RDW Plt Count Lymph % (Auto) Barron % (Auto) Lymph # Barron # Baso # Seg Neutrophils % Seg Neuts % (Manual) Lymphocytes % (Manual) Seg Neutrophils # Seg Neutrophils # Man Lymphocytes # (Manual) Monocytes # (Manual) PT INR APTT Heparin Anti-Xa Level POC ABG pH POC ABG pCO2 POC ABG pO2 Sodium Potassium Chloride Carbon Dioxide BUN Creatinine Glucose POC Glucose 291 H 235 H 154 H Calcium Phosphorus Lactate Dehydrogenase Total Creatine Kinase NT-Pro-B Natriuret Pep Albumin Eybaz-9-Nlnnparuv Sltye-1-Paimqiczr Beta Globulins PEP Interpretation Cholesterol LDL Cholesterol Direct 04/13/16 04/13/16 04/13/16 05:16 05:16 05:28 WBC RBC Hgb Hct MCV MCH MCHC RDW Plt Count Lymph % (Auto) Barron % (Auto) Lymph # Barron # Baso # Seg Neutrophils % Seg Neuts % (Manual) Lymphocytes % (Manual) Seg Neutrophils # Seg Neutrophils # Man Lymphocytes # (Manual) Monocytes # (Manual) PT 27.0 H INR 2.49 H APTT Heparin Anti-Xa Level 0.20 L POC ABG pH POC ABG pCO2 POC ABG pO2 Sodium 150 H Potassium Chloride 110.5 H Carbon Dioxide BUN 21 H Creatinine Glucose 159 H POC Glucose 177 H Calcium Phosphorus Lactate Dehydrogenase Total Creatine Kinase NT-Pro-B Natriuret Pep Albumin Zyuco-1-Tbjcycjna Pxkcm-3-Ztriahsbv Beta Globulins PEP Interpretation Cholesterol LDL Cholesterol Direct 04/13/16 04/13/16 04/14/16 11:30 17:54 00:44 WBC RBC Hgb Hct MCV MCH MCHC RDW Plt Count Lymph % (Auto) Barron % (Auto) Lymph # Barron # Baso # Seg Neutrophils % Seg Neuts % (Manual) Lymphocytes % (Manual) Seg Neutrophils # Seg Neutrophils # Man Lymphocytes # (Manual) Monocytes # (Manual) PT INR APTT Heparin Anti-Xa Level POC ABG pH POC ABG pCO2 POC ABG pO2 Sodium Potassium Chloride Carbon Dioxide BUN Creatinine Glucose POC Glucose 181 H 251 H 237 H Calcium Phosphorus Lactate Dehydrogenase Total Creatine Kinase NT-Pro-B Natriuret Pep Albumin Zafyf-2-Opsoqnsgl Xtmkv-7-Pdbtlmakw Beta Globulins PEP Interpretation Cholesterol LDL Cholesterol Direct 04/14/16 04/14/16 04/14/16 05:00 05:42 05:42 WBC RBC Hgb Hct MCV MCH MCHC RDW Plt Count Lymph % (Auto) Barron % (Auto) Lymph # Barron # Baso # Seg Neutrophils % Seg Neuts % (Manual) Lymphocytes % (Manual) Seg Neutrophils # Seg Neutrophils # Man Lymphocytes # (Manual) Monocytes # (Manual) PT 30.3 H INR 2.88 H APTT Heparin Anti-Xa Level 0.27 L POC ABG pH POC ABG pCO2 POC ABG pO2 Sodium Potassium 3.5 L Chloride Carbon Dioxide BUN Creatinine Glucose 160 H POC Glucose Calcium 8.2 L Phosphorus Lactate Dehydrogenase Total Creatine Kinase NT-Pro-B Natriuret Pep Albumin Csesg-8-Xblohwtil Iqtsd-6-Qpcnzygfr Beta Globulins PEP Interpretation Cholesterol LDL Cholesterol Direct 04/14/16 04/14/16 04/14/16 06:02 06:16 09:18 WBC 12.3 H RBC Hgb 11.4 L Hct MCV 82 L MCH 26 L MCHC RDW Plt Count Lymph % (Auto) Barron % (Auto) Lymph # Barron # Baso # Seg Neutrophils % Seg Neuts % (Manual) Lymphocytes % (Manual) Seg Neutrophils # Seg Neutrophils # Man Lymphocytes # (Manual) Monocytes # (Manual) PT INR APTT Heparin Anti-Xa Level POC ABG pH POC ABG pCO2 POC ABG pO2 Sodium Potassium Chloride Carbon Dioxide BUN Creatinine Glucose POC Glucose 156 H 164 H Calcium Phosphorus Lactate Dehydrogenase Total Creatine Kinase NT-Pro-B Natriuret Pep Albumin Jybap-5-Xthkcohtu Hijol-7-Ndhxazcgk Beta Globulins PEP Interpretation Cholesterol LDL Cholesterol Direct 04/14/16 04/15/16 04/15/16 13:58 01:07 06:04 WBC RBC Hgb Hct MCV MCH MCHC RDW Plt Count Lymph % (Auto) Barron % (Auto) Lymph # Barron # Baso # Seg Neutrophils % Seg Neuts % (Manual) Lymphocytes % (Manual) Seg Neutrophils # Seg Neutrophils # Man Lymphocytes # (Manual) Monocytes # (Manual) PT 24.9 H INR 2.25 H APTT Heparin Anti-Xa Level POC ABG pH POC ABG pCO2 POC ABG pO2 Sodium Potassium Chloride Carbon Dioxide BUN Creatinine Glucose POC Glucose 109 H 154 H Calcium Phosphorus Lactate Dehydrogenase Total Creatine Kinase NT-Pro-B Natriuret Pep Albumin Sodcs-8-Jjjedhsgd Zatbv-7-Nkxjfczvd Beta Globulins PEP Interpretation Cholesterol LDL Cholesterol Direct 04/15/16 04/15/16 04/16/16 06:08 12:41 00:38 WBC RBC Hgb Hct MCV MCH MCHC RDW Plt Count Lymph % (Auto) Barron % (Auto) Lymph # Barron # Baso # Seg Neutrophils % Seg Neuts % (Manual) Lymphocytes % (Manual) Seg Neutrophils # Seg Neutrophils # Man Lymphocytes # (Manual) Monocytes # (Manual) PT INR APTT Heparin Anti-Xa Level POC ABG pH POC ABG pCO2 POC ABG pO2 Sodium Potassium Chloride Carbon Dioxide BUN Creatinine Glucose POC Glucose 165 H 223 H 216 H Calcium Phosphorus Lactate Dehydrogenase Total Creatine Kinase NT-Pro-B Natriuret Pep Albumin Tersp-9-Hbrhrsbet Fxgpm-4-Diczepmmx Beta Globulins PEP Interpretation Cholesterol LDL Cholesterol Direct 04/16/16 04/16/16 04/16/16 05:45 07:09 14:00 WBC RBC Hgb Hct MCV MCH MCHC RDW Plt Count Lymph % (Auto) Barron % (Auto) Lymph # Barron # Baso # Seg Neutrophils % Seg Neuts % (Manual) Lymphocytes % (Manual) Seg Neutrophils # Seg Neutrophils # Man Lymphocytes # (Manual) Monocytes # (Manual) PT 19.4 H INR 1.64 H APTT Heparin Anti-Xa Level 0.10 L POC ABG pH POC ABG pCO2 POC ABG pO2 Sodium Potassium Chloride Carbon Dioxide BUN Creatinine Glucose POC Glucose 207 H 69 L Calcium Phosphorus Lactate Dehydrogenase Total Creatine Kinase NT-Pro-B Natriuret Pep Albumin Djjjm-5-Mjhvfkuad Wbkop-1-Kxxypkznv Beta Globulins PEP Interpretation Cholesterol LDL Cholesterol Direct 04/16/16 04/16/16 04/16/16 17:40 17:52 19:38 WBC RBC Hgb Hct MCV MCH MCHC RDW Plt Count Lymph % (Auto) Barron % (Auto) Lymph # Barron # Baso # Seg Neutrophils % Seg Neuts % (Manual) Lymphocytes % (Manual) Seg Neutrophils # Seg Neutrophils # Man Lymphocytes # (Manual) Monocytes # (Manual) PT INR APTT Heparin Anti-Xa Level 0.26 L POC ABG pH 7.543 H 7.488 H POC ABG pCO2 26.3 L 30.3 L POC ABG pO2 55 L 203 H Sodium Potassium Chloride Carbon Dioxide BUN Creatinine Glucose POC Glucose Calcium Phosphorus Lactate Dehydrogenase Total Creatine Kinase NT-Pro-B Natriuret Pep Albumin Xwxnx-6-Quedlfpyv Xzjsy-4-Dtryuylcl Beta Globulins PEP Interpretation Cholesterol LDL Cholesterol Direct 1204/17/16 04/17/16 00:04 05:10 05:36 WBC RBC Hgb Hct MCV MCH MCHC RDW Plt Count Lymph % (Auto) Barron % (Auto) Lymph # Barron # Baso # Seg Neutrophils % Seg Neuts % (Manual) Lymphocytes % (Manual) Seg Neutrophils # Seg Neutrophils # Man Lymphocytes # (Manual) Monocytes # (Manual) PT INR APTT Heparin Anti-Xa Level POC ABG pH POC ABG pCO2 32.7 L POC ABG pO2 68 L Sodium Potassium Chloride Carbon Dioxide BUN Creatinine Glucose POC Glucose 113 H 161 H Calcium Phosphorus Lactate Dehydrogenase Total Creatine Kinase NT-Pro-B Natriuret Pep Albumin Cuelz-0-Ohnjdsarw Wsfzo-8-Zinleamtk Beta Globulins PEP Interpretation Cholesterol LDL Cholesterol Direct 04/17/16 04/17/16 04/17/16 05:41 08:37 11:46 WBC RBC Hgb Hct MCV MCH MCHC RDW Plt Count Lymph % (Auto) Barron % (Auto) Lymph # Barron # Baso # Seg Neutrophils % Seg Neuts % (Manual) Lymphocytes % (Manual) Seg Neutrophils # Seg Neutrophils # Man Lymphocytes # (Manual) Monocytes # (Manual) PT 17.4 H INR 1.43 H APTT Heparin Anti-Xa Level POC ABG pH POC ABG pCO2 POC ABG pO2 Sodium Potassium Chloride Carbon Dioxide BUN Creatinine Glucose POC Glucose 154 H 138 H Calcium Phosphorus Lactate Dehydrogenase Total Creatine Kinase NT-Pro-B Natriuret Pep Albumin Xbkzz-1-Xpptkypng Ibgyk-2-Adxbpzdss Beta Globulins PEP Interpretation Cholesterol LDL Cholesterol Direct 04/17/16 04/17/16 04/17/16 12:17 12:17 21:20 WBC 16.5 H RBC 3.31 L Hgb 8.8 L Hct 26.9 L MCV 81 L MCH 27 L MCHC RDW 15.5 H Plt Count Lymph % (Auto) Barron % (Auto) Lymph # Barron # Baso # Seg Neutrophils % Seg Neuts % (Manual) Lymphocytes % (Manual) 3.0 L Seg Neutrophils # Seg Neutrophils # Man 10.1 H Lymphocytes # (Manual) 0.5 L Monocytes # (Manual) PT INR APTT Heparin Anti-Xa Level 0.14 L POC ABG pH POC ABG pCO2 POC ABG pO2 Sodium Potassium Chloride Carbon Dioxide 21 L BUN 38 H Creatinine 1.8 H D Glucose 131 H POC Glucose Calcium 7.6 L Phosphorus Lactate Dehydrogenase Total Creatine Kinase NT-Pro-B Natriuret Pep Albumin Uoxba-6-Yojsebwbu Axnbr-0-Aikbfsvoo Beta Globulins PEP Interpretation Cholesterol LDL Cholesterol Direct 04/17/16 04/17/16 04/18/16 23:38 23:41 00:21 WBC RBC Hgb Hct MCV MCH MCHC RDW Plt Count Lymph % (Auto) Barron % (Auto) Lymph # Barron # Baso # Seg Neutrophils % Seg Neuts % (Manual) Lymphocytes % (Manual) Seg Neutrophils # Seg Neutrophils # Man Lymphocytes # (Manual) Monocytes # (Manual) PT INR APTT Heparin Anti-Xa Level POC ABG pH POC ABG pCO2 POC ABG pO2 Sodium Potassium Chloride Carbon Dioxide BUN Creatinine Glucose POC Glucose < 40 L < 40 L 223 H Calcium Phosphorus Lactate Dehydrogenase Total Creatine Kinase NT-Pro-B Natriuret Pep Albumin Atkmx-6-Dpzykrscb Bgpce-1-Eplckmtje Beta Globulins PEP Interpretation Cholesterol LDL Cholesterol Direct Chest x-ray: image reviewed (cardiomegaly, evidence of prior cardiac surgery, otherwise clear lung lee)
[2016-04-18] MEDS: LEVOPHED 8 MG in NACL 0.9% 250ML 242 ML IV SCH (01:01)
[2016-04-18] MEDS: DUONEB 0.5 MG-3 MG/3 ML SOLN IH SCH ×4 (02:04→19:55)
[2016-04-18 05:24] LABS: ISTAT Base Excess 0; ISTAT HCO3 23.2; ISTAT PCO2 27.9 (35-45); ISTAT PH 7.528 (7.35-7.45); ISTAT PO2 83 (80-105); ISTAT SO2 97; ISTAT TCO2 24
[2016-04-18] MEDS: NOVOLOG SUB-Q SCH ×4 (05:34→18:31)
[2016-04-18] MEDS: D50W (25GM) IV PRN (05:38)
[2016-04-18 06:01] LABS: Basophils % (Auto) 0.3 % (0.0-1.8); Eosinophils % (Auto) 0.3 % (0.0-4.3); Hematocrit 27.8 % (35.5-45.6); Hemoglobin 9.1 gm/dl (11.8-15.2); Mean Corpuscular HGB Conc 33 % (32-34); Mean Corpuscular Hemoglobin 26 pg (28-32); Mean Corpuscular Volume 81 fl (84-94); Platelet Count 185 K/mm3 (140-440); Red Blood Count 3.44 M/mm3 (3.65-5.03); Red Cell Distribution Width 15.5 % (13.2-15.2); White Blood Count 17.6 K/mm3 (4.5-11.0)
[2016-04-18 06:15] LABS: INR 1.43 (0.87-1.13)
[2016-04-18 06:26] LABS: Anion Gap 20 mmol/L; BUN/Creatinine Ratio 18.33; Blood Urea Nitrogen 22 mg/dL (9-20); Carbon Dioxide 21 mmol/L (22-30); Glucose 87 mg/dL (75-100); Potassium 3.4 mmol/L (3.6-5.0); Sodium 144 mmol/L (137-145)
[2016-04-18] MEDS: APRESOLINE IV PRN (08:04)
--- NOTE | 2016-04-18 08:47 | Progress Note ---
Assessment and Plan Assessment and plan: 1. Acute respiratory failure. Patient reintubated on 04/17/16.. Continue mechanical ventilation per pulmonary. Chest x-ray appears clear. Patient will need tracheostomy. Surgery consult. We will hold Coumadin in anticipation for tracheostomy. Heparin drip for now. 2. Acute CVA. CT scan revealed acute ischemic infarct in the right cerebellum. MRI reveals subacute infarct in the right cerebellar hemisphere with associated edema and mass effect as previously described. Patient also with multiple areas of acute infarct in the left occipital and frontal lobes that are most likely embolic. LIZZIE done- No thrombus but decreased flow. Cardiology recommends anticoagulation with Coumadin. 3. Hypernatremia. Resolved. Continue to monitor BMP. Continue free water. 4. Encephalopathy. EEG normal. Etiology likely secondary to CVA +/- hypertension. 5. Group B strep UTI-treated 6. Accelerated hypertension. Continue antihypertensive medications 7. CAD-stable, 8. Seizures-continue Keppra. EEG normal. 9. Type 2 diabetes mellitus. Glycemic control. 10. History of aortic dissection status post repair. 11. History of prosthetic aortic valve replacement. Echo with normal function on 08/2015. 12. DVT prophylaxis-on heparin drip. 13. GI prophylaxis-Pepcid 14. Oropharyngeal dysphagia. Patient failed swallow evaluation. Status post PEG placement on 04/17. The high probability of a clinically significant, sudden or life threatening deterioration of the [respiratory and neurological] system(s) required my full and direct attention, intervention and personal management. The aggregate critical care time was [31] minutes. This time is in addition to time spent performing reported procedures but includes the following: [x] Data Review and interpretation [x] Patient assessment and monitoring of vital signs [x] Documentation [x] Medication orders and management History Interval history: 60 years old -Iraqi male with nonobstructive CAD per recent CAD, hypertension, hyperlipidemia, bioprosthetic aortic valve replacement, chronic kidney disease, diabetes and seizure disorder who was initially admitted for metabolic encephalopathy with hypernatremia. Patient developed respiratory failure during this hospitalization on 03/27 and was intubated placed on mechanical ventilation. Patient was later extubated during his hospitalization but was reintubated on the evening of 04/16/16. Patient now remains intubated on mechanical ventilation. Patient is also status post PEG tube placement on . Patient currently off pressors. Hospitalist Physical - Constitutional Vitals: Temp Pulse Resp BP Pulse Ox 99.1 F 128 H 16 210/106 98 04/18/16 07:07 04/18/16 08:04 04/18/16 07:00 04/18/16 08:04 04/18/16 07:00 General appearance: Present: no acute distress - EENT Eyes: Present: PERRL, EOM intact ENT: hearing intact, clear oral mucosa, dentition normal - Neck Neck: Present: supple, normal ROM - Respiratory Respiratory effort: normal Respiratory: bilateral: diminished, rhonchi - Cardiovascular Rhythm: regular Heart Sounds: Present: S1 & S2. Absent: gallop, rub - Extremities Extremities: no ischemia, No edema, Full ROM - Abdominal General gastrointestinal: soft, non-tender, non-distended, normal bowel sounds - Integumentary Integumentary: Present: clear, warm, dry - Neurologic Neurologic: CNII-XII intact, moves all extremities Results - Labs CBC & Chem 7: 04/18/16 05:20 04/18/16 05:20 Labs: Laboratory Last Values WBC 17.6 K/mm3 (4.5-11.0) H 04/18/16 05:20 RBC 3.44 M/mm3 (3.65-5.03) L 04/18/16 05:20 Hgb 9.1 gm/dl (11.8-15.2) L 04/18/16 05:20 Hct 27.8 % (35.5-45.6) L 04/18/16 05:20 MCV 81 fl (84-94) L 04/18/16 05:20 MCH 26 pg (28-32) L 04/18/16 05:20 MCHC 33 % (32-34) 04/18/16 05:20 RDW 15.5 % (13.2-15.2) H 04/18/16 05:20 Plt Count 185 K/mm3 (140-440) 04/18/16 05:20 Lymph % (Auto) 2.7 % (13.4-35.0) L 04/18/16 05:20 [place] % (Auto) 8.3 % (0.0-7.3) H 04/18/16 05:20 Eos % (Auto) 0.3 % (0.0-4.3) 04/18/16 05:20 Baso % (Auto) 0.3 % (0.0-1.8) 04/18/16 05:20 Lymph # 0.5 K/mm3 (1.2-5.4) L 04/18/16 05:20 [place] # 1.5 K/mm3 (0.0-0.8) H 04/18/16 05:20 Eos # 0.1 K/mm3 (0.0-0.4) 04/18/16 05:20 Baso # 0.0 K/mm3 (0.0-0.1) 04/18/16 05:20 Add Manual Diff Complete 04/17/16 12:17 Total Counted 100 04/17/16 12:17 Seg Neutrophils % 88.4 % (40.0-70.0) H 04/18/16 05:20 Seg Neuts % (Manual) 61.0 % (40.0-70.0) 04/17/16 12:17 Band Neutrophils % 27.0 % 04/17/16 12:17 Lymphocytes % (Manual) 3.0 % (13.4-35.0) L 04/17/16 12:17 Reactive Lymphs % (Man) 0 % 04/17/16 12:17 Monocytes % (Manual) 4.0 % (0.0-7.3) 04/17/16 12:17 Eosinophils % (Manual) 0 % (0.0-4.3) 04/17/16 12:17 Basophils % (Manual) 0 % (0.0-1.8) 04/17/16 12:17 Metamyelocytes % 1.0 % 04/17/16 12:17 Myelocytes % 1.0 % 04/17/16 12:17 Promyelocytes % 3.0 % 04/17/16 12:17 Blast Cells % 0 % 04/17/16 12:17 Nucleated RBC % Not Reportable 04/17/16 12:17 Seg Neutrophils # 15.6 K/mm3 (1.8-7.7) H 04/18/16 05:20 Seg Neutrophils # Man 10.1 K/mm3 (1.8-7.7) H 04/17/16 12:17 Band Neutrophils # 4.5 K/mm3 04/17/16 12:17 Lymphocytes # (Manual) 0.5 K/mm3 (1.2-5.4) L 04/17/16 12:17 Abs React Lymphs (Man) 0.0 K/mm3 04/17/16 12:17 Monocytes # (Manual) 0.7 K/mm3 (0.0-0.8) 04/17/16 12:17 Eosinophils # (Manual) 0.0 K/mm3 (0.0-0.4) 04/17/16 12:17 Basophils # (Manual) 0.0 K/mm3 (0.0-0.1) 04/17/16 12:17 Metamyelocytes # 0.2 K/mm3 04/17/16 12:17 Myelocytes # 0.2 K/mm3 04/17/16 12:17 Promyelocytes # 0.5 K/mm3 04/17/16 12:17 Blast Cells # 0.0 K/mm3 04/17/16 12:17 WBC Morphology Not Reportable 04/17/16 12:17 Hypersegmented Neuts Not Reportable 04/17/16 12:17 Hyposegmented Neuts Not Reportable 04/17/16 12:17 Hypogranular Neuts Not Reportable 04/17/16 12:17 Smudge Cells Not Reportable 04/17/16 12:17 Toxic Granulation Not Reportable 04/17/16 12:17 Toxic Vacuolation Not Reportable 04/17/16 12:17 Dohle Bodies Not Reportable 04/17/16 12:17 Pelger-Huet Anomaly Not Reportable 04/17/16 12:17 Corina Rods Not Reportable 04/17/16 12:17 Platelet Estimate Appears normal 04/17/16 12:17 Clumped Platelets Not Reportable 04/17/16 12:17 Plt Clumps, EDTA Not Reportable 04/17/16 12:17 Large Platelets Not Reportable 04/17/16 12:17 Giant Platelets Not Reportable 04/17/16 12:17 Platelet Satelliting Not Reportable 04/17/16 12:17 Plt Morphology Comment Not Reportable 04/17/16 12:17 RBC Morphology Not Reportable 04/17/16 12:17 Dimorphic RBCs Not Reportable 04/17/16 12:17 Polychromasia Few 04/17/16 12:17 Hypochromasia Not Reportable 04/17/16 12:17 Poikilocytosis Not Reportable 04/17/16 12:17 Anisocytosis 1+ 04/17/16 12:17 Microcytosis Few 04/17/16 12:17 Macrocytosis Not Reportable 04/17/16 12:17 Spherocytes Not Reportable 04/17/16 12:17 Pappenheimer Bodies Not Reportable 04/17/16 12:17 Sickle Cells Not Reportable 04/17/16 12:17 Target Cells Not Reportable 04/17/16 12:17 Tear Drop Cells Not Reportable 04/17/16 12:17 Ovalocytes Not Reportable 04/17/16 12:17 Helmet Cells Not Reportable 04/17/16 12:17 [place]gr[place] Bodies Not Reportable 04/17/16 12:17 [place] Rings Not Reportable 04/17/16 12:17 Tuan Cells Not Reportable 04/17/16 12:17 Bite Cells Not Reportable 04/17/16 12:17 Crenated Cell Not Reportable 04/17/16 12:17 Elliptocytes Not Reportable 04/17/16 12:17 Acanthocytes (Spur) Not Reportable 04/17/16 12:17 Rouleaux Not Reportable 04/17/16 12:17 Hemoglobin C Crystals Not Reportable 04/17/16 12:17 Schistocytes Not Reportable 04/17/16 12:17 Malaria parasites Not Reportable 04/17/16 12:17 Gideon Bodies Not Reportable 04/17/16 12:17 Hem Pathologist Commnt No 04/17/16 12:17 PT 17.4 Sec. (12.2-14.9) H 04/18/16 05:20 INR 1.43 (0.87-1.13) H 04/18/16 05:20 APTT 42.1 Sec. (24.2-36.6) H 04/04/16 09:55 Heparin Anti-Xa Level 0.14 U.I./ml (0.3-0.7) L 04/17/16 21:20 POC ABG pH 7.528 (7.35-7.45) H 04/18/16 05:01 POC ABG pCO2 27.9 (35-45) L 04/18/16 05:01 POC ABG pO2 83 (80-105) 04/18/16 05:01 POC ABG HCO3 23.2 04/18/16 05:01 POC ABG Total CO2 24 04/18/16 05:01 POC ABG O2 Sat 97 04/18/16 05:01 POC ABG Base Excess 0 04/18/16 05:01 VBG pH 7.418 (7.320-7.420) 03/24/16 14:00 FiO2 50 % 04/18/16 05:01 Sodium 144 mmol/L (137-145) 04/18/16 05:20 Potassium 3.4 mmol/L (3.6-5.0) L 04/18/16 05:20 Chloride 106.0 mmol/L (98-107) 04/18/16 05:20 Carbon Dioxide 21 mmol/L (22-30) L 04/18/16 05:20 Anion Gap 20 mmol/L 04/18/16 05:20 BUN 22 mg/dL (9-20) H 04/18/16 05:20 Creatinine 1.2 mg/dL (0.8-1.5) 04/18/16 05:20 Estimated GFR > 60 ml/min 04/18/16 05:20 BUN/Creatinine Ratio 18.33 % 04/18/16 05:20 Glucose 87 mg/dL (75-100) 04/18/16 05:20 POC Glucose 124 (70-105) H 04/18/16 06:50 Hemoglobin A1c 9.6 % (4-6) H 03/24/16 14:00 Lactic Acid 1.6 mmol/L (0.7-2.0) 04/17/16 12:17 Calcium 8.0 mg/dL (8.4-10.2) L 04/18/16 05:20 Phosphorus 2.3 mg/dL (2.5-4.5) L D 03/30/16 04:00 Magnesium 1.9 mg/dL (1.7-2.3) 03/30/16 04:00 Total Bilirubin 0.3 mg/dL (0.1-1.2) 03/24/16 14:00 AST 24 units/L (5-40) 03/24/16 14:00 ALT 38 units/L (7-56) 03/24/16 14:00 Alkaline Phosphatase 77 units/L (35-129) 03/24/16 14:00 Lactate Dehydrogenase 460 units/L (91-180) H 03/25/16 05:56 Total Creatine Kinase 356 units/L (55-170) H 03/28/16 13:29 Troponin T < 0.010 ng/mL (0.00-0.029) 03/28/16 13:29 NT-Pro-B Natriuret Pep 897.9 pg/mL (0-900) 04/03/16 04:10 Serum Total Protein 7.1 g/dL (6.1-8.1) 03/25/16 13:00 Total Protein 7.4 g/dL (6.3-8.2) 03/24/16 14:00 Albumin See scanned report 03/31/16 12:20 Albumin/Globulin Ratio 0.9 % 03/24/16 14:00 Gcanv-8-[id number] See scanned report 03/31/16 12:20 Gziky-8-Luvlvxvzb See scanned report 03/31/16 12:20 Beta Globulins See scanned report 03/31/16 12:20 Kbop-9-Taauxvgvsgbzp 2.46 mg/L (<=2.51) 03/25/16 13:00 Gamma Globulins See scanned report 03/31/16 12:20 Abnorm Protein Band 1 see below (()) 03/25/16 13:00 PEP Interpretation See scanned report 03/31/16 12:20 Triglycerides 88 mg/dL (2-149) 03/24/16 17:58 Cholesterol 221 mg/dL (50-199) H 03/24/16 17:58 LDL Cholesterol Direct 146 mg/dL (50-130) H 03/24/16 17:58 HDL Cholesterol 58 mg/dL (40-59) 03/24/16 17:58 Cholesterol/HDL Ratio 3.81 % 03/24/16 17:58 Urine Color Yellow (Yellow) 03/24/16 14:27 Urine Turbidity Clear (Clear) 03/24/16 14:27 Urine pH 5.0 (5.0-7.0) 03/24/16 14:27 Ur Specific [place] 1.017 (1.003-1.030) 03/24/16 14:27 Urine Protein <15 mg/dl mg/dL (Negative) 03/24/16 14:27 Urine Glucose (UA) >=500 mg/dL (Negative) 03/24/16 14:27 Urine Ketones Neg mg/dL (Negative) 03/24/16 14:27 Urine Blood Sm (Negative) 03/24/16 14:27 Urine Nitrite Neg (Negative) 03/24/16 14:27 Urine Bilirubin Neg (Negative) 03/24/16 14:27 Urine Urobilinogen < 2.0 mg/dL (<2.0) 03/24/16 14:27 Ur Leukocyte Esterase Neg (Negative) 03/24/16 14:27 Urine WBC (Auto) 2.0 /HPF (0.0-6.0) 03/24/16 14:27 Urine RBC (Auto) < 1.0 /HPF (0.0-6.0) 03/24/16 14:27 U Epithel Cells (Auto) 4.0 /HPF (0-13.0) 03/24/16 14:27 Hyaline Casts 1 /LPF 03/24/16 14:27 Urine Mucus Few /HPF 03/24/16 14:27 Ur Random Creatinine See scanned report 03/31/16 12:20 U Random Total Protein See scanned report 03/31/16 12:20 Protein/Creatinin Ratio See scanned report 03/31/16 12:20 U Abnormal Prot Band 1 See scanned report 03/31/16 12:20 U Abnormal Prot Band 2 See scanned report 03/31/16 12:20 U Abnormal Prot Band 3 See scanned report 03/31/16 12:20 Ketones 1.0 mg/dL (0.2-2.8) 03/24/16 14:00
--- NOTE | 2016-04-18 09:53 | XRay Report ---
AP chest History: Followup respiratory failure. Findings: Lines and tubes remain in adequate position. Given differences in the level of inspiration, no change is appreciated in cardiomegaly and central pulmonary venous congestion. The lungs remain generally clear.
[2016-04-18] MEDS: ZESTRIL PO SCH ×2 (10:15→21:50)
--- NOTE | 2016-04-18 10:43 | Gastroenterology Progress Note ---
Assessment and Plan GI: s/p peg w/o signs complications - ok to use as needed - will sign off, call if needed Subjective Date of service: 04/18/16 Principal diagnosis: CVA Interval history: - no GI issues post-peg overnight Objective - Constitutional Vitals: Temp Pulse Resp BP Pulse Ox 99.1 F 137 H 16 153/89 100 04/18/16 07:07 04/18/16 08:55 04/18/16 07:00 04/18/16 08:55 04/18/16 08:55 General appearance: no acute distress - Respiratory Respiratory: bilateral: rhonchi - Cardiovascular Rhythm: regular Heart Sounds: Present: S1 & S2 - Gastrointestinal General gastrointestinal: Present: non-tender (peg site intact) - Labs CBC & Chem 7: 04/18/16 05:20 04/18/16 05:20 Labs: Laboratory Results - last 24 hr 04/17/16 04/17/16 04/17/16 11:46 12:17 12:17 WBC 16.5 H RBC 3.31 L Hgb 8.8 L Hct 26.9 L MCV 81 L MCH 27 L MCHC 33 RDW 15.5 H Plt Count 179 Lymph % (Auto) [place] % (Auto) Eos % (Auto) Baso % (Auto) Lymph # [place] # Eos # Baso # Add Manual Diff Complete Total Counted 100 Seg Neutrophils % Seg Neuts % (Manual) 61.0 Band Neutrophils % 27.0 Lymphocytes % (Manual) 3.0 L Reactive Lymphs % (Man) 0 Monocytes % (Manual) 4.0 Eosinophils % (Manual) 0 Basophils % (Manual) 0 Metamyelocytes % 1.0 Myelocytes % 1.0 Promyelocytes % 3.0 Blast Cells % 0 Nucleated RBC % Not Reportable Seg Neutrophils # Seg Neutrophils # Man 10.1 H Band Neutrophils # 4.5 Lymphocytes # (Manual) 0.5 L Abs React Lymphs (Man) 0.0 Monocytes # (Manual) 0.7 Eosinophils # (Manual) 0.0 Basophils # (Manual) 0.0 Metamyelocytes # 0.2 Myelocytes # 0.2 Promyelocytes # 0.5 Blast Cells # 0.0 WBC Morphology Not Reportable Hypersegmented Neuts Not Reportable Hyposegmented Neuts Not Reportable Hypogranular Neuts Not Reportable Smudge Cells Not Reportable Toxic Granulation Not Reportable Toxic Vacuolation Not Reportable Dohle Bodies Not Reportable Pelger-Huet Anomaly Not Reportable Corina Rods Not Reportable Platelet Estimate Appears normal Clumped Platelets Not Reportable Plt Clumps, EDTA Not Reportable Large Platelets Not Reportable Giant Platelets Not Reportable Platelet Satelliting Not Reportable Plt Morphology Comment Not Reportable RBC Morphology Not Reportable Dimorphic RBCs Not Reportable Polychromasia Few Hypochromasia Not Reportable Poikilocytosis Not Reportable Anisocytosis 1+ Microcytosis Few Macrocytosis Not Reportable Spherocytes Not Reportable Pappenheimer Bodies Not Reportable Sickle Cells Not Reportable Target Cells Not Reportable Tear Drop Cells Not Reportable Ovalocytes Not Reportable Helmet Cells Not Reportable Mcgrath-[place] Bodies Not Reportable [place] Not Reportable [place] Cells Not Reportable Bite Cells Not Reportable Crenated Cell Not Reportable Elliptocytes Not Reportable Acanthocytes (Spur) Not Reportable Rouleaux Not Reportable Hemoglobin C Crystals Not Reportable Schistocytes Not Reportable Malaria parasites Not Reportable Gideon Bodies Not Reportable Hem Pathologist Commnt No PT INR Heparin Anti-Xa Level POC ABG pH POC ABG pCO2 POC ABG pO2 POC ABG HCO3 POC ABG Total CO2 POC ABG O2 Sat POC ABG Base Excess FiO2 Sodium 142 Potassium 3.9 Chloride 106.3 Carbon Dioxide 21 L Anion Gap 19 BUN 38 H Creatinine 1.8 H D Estimated GFR 46 BUN/Creatinine Ratio 21.11 Glucose 131 H POC Glucose 138 H Lactic Acid Calcium 7.6 L 04/17/16 04/17/16 04/17/16 12:17 17:50 21:20 WBC RBC Hgb Hct MCV MCH MCHC RDW Plt Count Lymph % (Auto) [place] % (Auto) Eos % (Auto) Baso % (Auto) Lymph # [place] # Eos # Baso # Add Manual Diff Total Counted Seg Neutrophils % Seg Neuts % (Manual) Band Neutrophils % Lymphocytes % (Manual) Reactive Lymphs % (Man) Monocytes % (Manual) Eosinophils % (Manual) Basophils % (Manual) Metamyelocytes % Myelocytes % Promyelocytes % Blast Cells % Nucleated RBC % Seg Neutrophils # Seg Neutrophils # Man Band Neutrophils # Lymphocytes # (Manual) Abs React Lymphs (Man) Monocytes # (Manual) Eosinophils # (Manual) Basophils # (Manual) Metamyelocytes # Myelocytes # Promyelocytes # Blast Cells # WBC Morphology Hypersegmented Neuts Hyposegmented Neuts Hypogranular Neuts Smudge Cells Toxic Granulation Toxic Vacuolation Dohle Bodies Pelger-Huet Anomaly Corina Rods Platelet Estimate Clumped Platelets Plt Clumps, EDTA Large Platelets Giant Platelets Platelet Satelliting Plt Morphology Comment RBC Morphology Dimorphic RBCs Polychromasia Hypochromasia Poikilocytosis Anisocytosis Microcytosis Macrocytosis Spherocytes Pappenheimer Bodies Sickle Cells Target Cells Tear Drop Cells Ovalocytes Helmet Cells Mcgrath-[place] Bodies [place] Tuan Cells Bite Cells Crenated Cell Elliptocytes Acanthocytes (Spur) Rouleaux Hemoglobin C Crystals Schistocytes Malaria parasites Gideon Bodies Hem Pathologist Commnt PT INR Heparin Anti-Xa Level 0.14 L POC ABG pH POC ABG pCO2 POC ABG pO2 POC ABG HCO3 POC ABG Total CO2 POC ABG O2 Sat POC ABG Base Excess FiO2 Sodium Potassium Chloride Carbon Dioxide Anion Gap BUN Creatinine Estimated GFR BUN/Creatinine Ratio Glucose POC Glucose 73 Lactic Acid 1.6 Calcium 04/17/16 04/17/16 04/18/16 23:38 23:41 00:21 WBC RBC Hgb Hct MCV MCH MCHC RDW Plt Count Lymph % (Auto) [place] % (Auto) Eos % (Auto) Baso % (Auto) Lymph # [place] # Eos # Baso # Add Manual Diff Total Counted Seg Neutrophils % Seg Neuts % (Manual) Band Neutrophils % Lymphocytes % (Manual) Reactive Lymphs % (Man) Monocytes % (Manual) Eosinophils % (Manual) Basophils % (Manual) Metamyelocytes % Myelocytes % Promyelocytes % Blast Cells % Nucleated RBC % Seg Neutrophils # Seg Neutrophils # Man Band Neutrophils # Lymphocytes # (Manual) Abs React Lymphs (Man) Monocytes # (Manual) Eosinophils # (Manual) Basophils # (Manual) Metamyelocytes # Myelocytes # Promyelocytes # Blast Cells # WBC Morphology Hypersegmented Neuts Hyposegmented Neuts Hypogranular Neuts Smudge Cells Toxic Granulation Toxic Vacuolation Dohle Bodies Pelger-Huet Anomaly Corina Rods Platelet Estimate Clumped Platelets Plt Clumps, EDTA Large Platelets Giant Platelets Platelet Satelliting Plt Morphology Comment RBC Morphology Dimorphic RBCs Polychromasia Hypochromasia Poikilocytosis Anisocytosis Microcytosis Macrocytosis Spherocytes Pappenheimer Bodies Sickle Cells Target Cells Tear Drop Cells Ovalocytes Helmet Cells Mcgrath-[place] Bodies [place] Cells Bite Cells Crenated Cell Elliptocytes Acanthocytes (Spur) Rouleaux Hemoglobin C Crystals Schistocytes Malaria parasites Gideon Bodies Hem Pathologist Commnt PT INR Heparin Anti-Xa Level POC ABG pH POC ABG pCO2 POC ABG pO2 POC ABG HCO3 POC ABG Total CO2 POC ABG O2 Sat POC ABG Base Excess FiO2 Sodium Potassium Chloride Carbon Dioxide Anion Gap BUN Creatinine Estimated GFR BUN/Creatinine Ratio Glucose POC Glucose < 40 L < 40 L 223 H Lactic Acid Calcium 04/18/16 04/18/16 04/18/16 03:23 05:01 05:20 WBC RBC Hgb Hct MCV MCH MCHC RDW Plt Count Lymph % (Auto) [place] % (Auto) Eos % (Auto) Baso % (Auto) Lymph # [place] # Eos # Baso # Add Manual Diff Total Counted Seg Neutrophils % Seg Neuts % (Manual) Band Neutrophils % Lymphocytes % (Manual) Reactive Lymphs % (Man) Monocytes % (Manual) Eosinophils % (Manual) Basophils % (Manual) Metamyelocytes % Myelocytes % Promyelocytes % Blast Cells % Nucleated RBC % Seg Neutrophils # Seg Neutrophils # Man Band Neutrophils # Lymphocytes # (Manual) Abs React Lymphs (Man) Monocytes # (Manual) Eosinophils # (Manual) Basophils # (Manual) Metamyelocytes # Myelocytes # Promyelocytes # Blast Cells # WBC Morphology Hypersegmented Neuts Hyposegmented Neuts Hypogranular Neuts Smudge Cells Toxic Granulation Toxic Vacuolation Dohle Bodies Pelger-Huet Anomaly Corina Rods Platelet Estimate Clumped Platelets Plt Clumps, EDTA Large Platelets Giant Platelets Platelet Satelliting Plt Morphology Comment RBC Morphology Dimorphic RBCs Polychromasia Hypochromasia Poikilocytosis Anisocytosis Microcytosis Macrocytosis Spherocytes Pappenheimer Bodies Sickle Cells Target Cells Tear Drop Cells Ovalocytes Helmet Cells Mcgrath-[place] Bodies [place] Cells Bite Cells Crenated Cell Elliptocytes Acanthocytes (Spur) Rouleaux Hemoglobin C Crystals Schistocytes Malaria parasites Gideon Bodies Hem Pathologist Commnt PT 17.4 H INR 1.43 H Heparin Anti-Xa Level POC ABG pH 7.528 H POC ABG pCO2 27.9 L POC ABG pO2 83 POC ABG HCO3 23.2 POC ABG Total CO2 24 POC ABG O2 Sat 97 POC ABG Base Excess 0 FiO2 50 Sodium Potassium Chloride Carbon Dioxide Anion Gap BUN Creatinine Estimated GFR BUN/Creatinine Ratio Glucose 100 POC Glucose Lactic Acid Calcium 04/18/16 04/18/16 04/18/16 05:20 05:20 05:31 WBC 17.6 H RBC 3.44 L Hgb 9.1 L Hct 27.8 L MCV 81 L MCH 26 L MCHC 33 RDW 15.5 H Plt Count 185 Lymph % (Auto) 2.7 L [place] % (Auto) 8.3 H Eos % (Auto) 0.3 Baso % (Auto) 0.3 Lymph # 0.5 L [place] # 1.5 H Eos # 0.1 Baso # 0.0 Add Manual Diff Total Counted Seg Neutrophils % 88.4 H Seg Neuts % (Manual) Band Neutrophils % Lymphocytes % (Manual) Reactive Lymphs % (Man) Monocytes % (Manual) Eosinophils % (Manual) Basophils % (Manual) Metamyelocytes % Myelocytes % Promyelocytes % Blast Cells % Nucleated RBC % Seg Neutrophils # 15.6 H Seg Neutrophils # Man Band Neutrophils # Lymphocytes # (Manual) Abs React Lymphs (Man) Monocytes # (Manual) Eosinophils # (Manual) Basophils # (Manual) Metamyelocytes # Myelocytes # Promyelocytes # Blast Cells # WBC Morphology Hypersegmented Neuts Hyposegmented Neuts Hypogranular Neuts Smudge Cells Toxic Granulation Toxic Vacuolation Dohle Bodies Pelger-Huet Anomaly Corina Rods Platelet Estimate Clumped Platelets Plt Clumps, EDTA Large Platelets Giant Platelets Platelet Satelliting Plt Morphology Comment RBC Morphology Dimorphic RBCs Polychromasia Hypochromasia Poikilocytosis Anisocytosis Microcytosis Macrocytosis Spherocytes Pappenheimer Bodies Sickle Cells Target Cells Tear Drop Cells Ovalocytes Helmet Cells Mcgrath-[place] Bodies [place]uan Cells Bite Cells Crenated Cell Elliptocytes Acanthocytes (Spur) Rouleaux Hemoglobin C Crystals Schistocytes Malaria parasites Gideon Bodies Hem Pathologist Commnt PT INR Heparin Anti-Xa Level POC ABG pH POC ABG pCO2 POC ABG pO2 POC ABG HCO3 POC ABG Total CO2 POC ABG O2 Sat POC ABG Base Excess FiO2 Sodium 144 Potassium 3.4 L Chloride 106.0 Carbon Dioxide 21 L Anion Gap 20 BUN 22 H Creatinine 1.2 Estimated GFR > 60 BUN/Creatinine Ratio 18.33 Glucose 87 POC Glucose 61 L Lactic Acid Calcium 8.0 L 04/18/16 06:50 WBC RBC Hgb Hct MCV MCH MCHC RDW Plt Count Lymph % (Auto) [place] % (Auto) Eos % (Auto) Baso % (Auto) Lymph # [place] # Eos # Baso # Add Manual Diff Total Counted Seg Neutrophils % Seg Neuts % (Manual) Band Neutrophils % Lymphocytes % (Manual) Reactive Lymphs % (Man) Monocytes % (Manual) Eosinophils % (Manual) Basophils % (Manual) Metamyelocytes % Myelocytes % Promyelocytes % Blast Cells % Nucleated RBC % Seg Neutrophils # Seg Neutrophils # Man Band Neutrophils # Lymphocytes # (Manual) Abs React Lymphs (Man) Monocytes # (Manual) Eosinophils # (Manual) Basophils # (Manual) Metamyelocytes # Myelocytes # Promyelocytes # Blast Cells # WBC Morphology Hypersegmented Neuts Hyposegmented Neuts Hypogranular Neuts Smudge Cells Toxic Granulation Toxic Vacuolation Dohle Bodies Pelger-Huet Anomaly Corina Rods Platelet Estimate Clumped Platelets Plt Clumps, EDTA Large Platelets Giant Platelets Platelet Satelliting Plt Morphology Comment RBC Morphology Dimorphic RBCs Polychromasia Hypochromasia Poikilocytosis Anisocytosis Microcytosis Macrocytosis Spherocytes Pappenheimer Bodies Sickle Cells Target Cells Tear Drop Cells Ovalocytes Helmet Cells Mcgrath-[place] Bodies [place] Cells Bite Cells Crenated Cell Elliptocytes Acanthocytes (Spur) Rouleaux Hemoglobin C Crystals Schistocytes Malaria parasites Gideon Bodies Hem Pathologist Commnt PT INR Heparin Anti-Xa Level POC ABG pH POC ABG pCO2 POC ABG pO2 POC ABG HCO3 POC ABG Total CO2 POC ABG O2 Sat POC ABG Base Excess FiO2 Sodium Potassium Chloride Carbon Dioxide Anion Gap BUN Creatinine Estimated GFR BUN/Creatinine Ratio Glucose POC Glucose 124 H Lactic Acid Calcium
[2016-04-18] MEDS: NORVASC PO SCH (12:06)
[2016-04-18] MEDS: CORDARONE PO SCH (12:06)
[2016-04-18] MEDS: NORMODYNE PO SCH ×3 (14:37→21:00)
[2016-04-18] MEDS: PEPCID PO SCH ×2 (14:47→21:49)
[2016-04-18] MEDS: KEPPRA PO SCH ×2 (14:48→21:49)
[2016-04-18] MEDS: D5W 1,000 ML IV SCH (14:48)
[2016-04-18] MEDS: BABY ASPIRIN PO SCH (17:15)
[2016-04-18] MEDS: HEPARIN/ 0.45% NACL-25,000 UNIT/500 ML 500 ML IV SCH (21:51)
[2016-04-19] MEDS: NOVOLOG SUB-Q SCH ×6 (00:34→23:53)
[2016-04-19] MEDS: DUONEB 0.5 MG-3 MG/3 ML SOLN IH SCH ×4 (02:48→19:49)
[2016-04-19] MEDS: D5W 1,000 ML IV SCH (02:52)
[2016-04-19 04:56] LABS: Basophils % (Auto) 0.3 % (0.0-1.8); Eosinophils % (Auto) 0.1 % (0.0-4.3); Hematocrit 28.8 % (35.5-45.6); Hemoglobin 9.3 gm/dl (11.8-15.2); Mean Corpuscular HGB Conc 32 % (32-34); Mean Corpuscular Hemoglobin 26 pg (28-32); Mean Corpuscular Volume 80 fl (84-94); Platelet Count 214 K/mm3 (140-440); Red Blood Count 3.58 M/mm3 (3.65-5.03); Red Cell Distribution Width 15.5 % (13.2-15.2)
[2016-04-19 04:56] LABS: ISTAT Base Excess 0; ISTAT HCO3 22.5; ISTAT PCO2 27.1 (35-45); ISTAT PH 7.527 (7.35-7.45); ISTAT PO2 88 (80-105); ISTAT SO2 98; ISTAT TCO2 23
[2016-04-19 05:16] LABS: BUN/Creatinine Ratio 16.92; Blood Urea Nitrogen 22 mg/dL (9-20); Carbon Dioxide 22 mmol/L (22-30); Chloride 102.2 mmol/L (98-107); Glucose 215 mg/dL (75-100); Potassium 3.8 mmol/L (3.6-5.0); Sodium 139 mmol/L (137-145)
[2016-04-19 05:38] LABS: Anion Gap 19 mmol/L
[2016-04-19 08:38] LABS: INR 1.93 (0.87-1.13)
--- NOTE | 2016-04-19 09:27 | Progress Note ---
Assessment and Plan 61 y/o male with acute encephalopathy, secondary to embolic strokes, now with acute respiratory failure requiring re-intubation. 1. Will need trach. Will place consult to surgery 2. Off pressors. Monitor BP 3. Afebrile, only leukocytosis. CXR is clear. Hold on any abx therapy at this time and monitor white count 4. Hold warfarin, continue heparin. Will restart once trach in place 5. Overall prognosis is guarded. CCT 31 minutes. Subjective Date of service: 04/19/16 Principal diagnosis: CVA Interval history: No acute events. Still not responsive. Tachy but sinus. CXR is stable. No family at bedside. Objective Vital Signs - 12hr 04/18/16 04/18/16 04/18/16 21:30 21:50 22:00 Temperature Pulse Rate 84 83 82 Pulse Rate [ Anterior Bilateral Throughout] Pulse Rate [ From Monitor] Respiratory 35 H 17 Rate Respiratory Rate [Anterior Bilateral Throughout] Blood Pressure 108/66 111/72 113/73 O2 Sat by Pulse 100 100 Oximetry 04/18/16 04/18/16 04/18/16 22:04 22:30 23:00 Temperature Pulse Rate 80 80 93 H Pulse Rate [ Anterior Bilateral Throughout] Pulse Rate [ From Monitor] Respiratory 18 19 20 Rate Respiratory Rate [Anterior Bilateral Throughout] Blood Pressure 113/73 113/71 148/90 O2 Sat by Pulse 100 100 100 Oximetry 04/18/16 04/18/16 04/19/16 23:23 23:30 00:00 Temperature 98.9 F Pulse Rate 90 82 82 Pulse Rate [ Anterior Bilateral Throughout] Pulse Rate [ 98 H From Monitor] Respiratory 18 16 Rate Respiratory Rate [Anterior Bilateral Throughout] Blood Pressure 119/75 113/68 115/72 O2 Sat by Pulse 98 100 100 Oximetry 04/19/16 04/19/16 04/19/16 00:30 01:00 01:30 Temperature Pulse Rate 89 100 H 99 H Pulse Rate [ Anterior Bilateral Throughout] Pulse Rate [ From Monitor] Respiratory 21 31 H 29 H Rate Respiratory Rate [Anterior Bilateral Throughout] Blood Pressure 127/81 127/76 152/96 O2 Sat by Pulse 100 100 100 Oximetry 04/19/16 04/19/16 04/19/16 02:00 02:30 02:48 Temperature Pulse Rate 102 H 88 Pulse Rate [ 90 Anterior Bilateral Throughout] Pulse Rate [ From Monitor] Respiratory 27 H 18 Rate Respiratory 23 Rate [Anterior Bilateral Throughout] Blood Pressure 148/86 108/67 O2 Sat by Pulse 100 100 Oximetry 04/19/16 04/19/16 04/19/16 03:00 03:02 03:30 Temperature Pulse Rate 93 H 100 H Pulse Rate [ 94 H Anterior Bilateral Throughout] Pulse Rate [ From Monitor] Respiratory 16 24 Rate Respiratory 23 Rate [Anterior Bilateral Throughout] Blood Pressure 115/70 146/86 O2 Sat by Pulse 100 100 Oximetry 04/19/16 04/19/16 04/19/16 03:48 03:53 04:00 Temperature 99.0 F Pulse Rate 103 H 108 H Pulse Rate [ Anterior Bilateral Throughout] Pulse Rate [ 102 H From Monitor] Respiratory 13 26 H Rate Respiratory Rate [Anterior Bilateral Throughout] Blood Pressure 144/87 156/88 O2 Sat by Pulse 100 100 Oximetry 04/19/16 04/19/16 04/19/16 04:11 04:30 05:00 Temperature Pulse Rate 104 H 106 H 107 H Pulse Rate [ Anterior Bilateral Throughout] Pulse Rate [ From Monitor] Respiratory 19 22 Rate Respiratory Rate [Anterior Bilateral Throughout] Blood Pressure 156/88 141/85 144/88 O2 Sat by Pulse 100 100 100 Oximetry 04/19/16 04/19/16 04/19/16 05:30 05:32 05:54 Temperature Pulse Rate 106 H 107 H 112 H Pulse Rate [ Anterior Bilateral Throughout] Pulse Rate [ From Monitor] Respiratory 19 23 25 H Rate Respiratory Rate [Anterior Bilateral Throughout] Blood Pressure 125/75 125/75 131/78 O2 Sat by Pulse 100 100 100 Oximetry 04/19/16 04/19/16 04/19/16 06:00 06:30 07:00 Temperature Pulse Rate 112 H 112 H 119 H Pulse Rate [ Anterior Bilateral Throughout] Pulse Rate [ From Monitor] Respiratory 17 25 H 30 H Rate Respiratory Rate [Anterior Bilateral Throughout] Blood Pressure 131/78 140/83 174/94 O2 Sat by Pulse 100 100 100 Oximetry 04/19/16 04/19/16 04/19/16 07:30 07:44 07:49 Temperature Pulse Rate 116 H 117 H 117 H Pulse Rate [ Anterior Bilateral Throughout] Pulse Rate [ From Monitor] Respiratory 26 H 29 H Rate Respiratory Rate [Anterior Bilateral Throughout] Blood Pressure 163/99 163/99 158/95 O2 Sat by Pulse 100 100 100 Oximetry 1204/19/16 04/19/16 07:55 08:00 08:03 Temperature Pulse Rate 111 H Pulse Rate [ 113 H 111 H Anterior Bilateral Throughout] Pulse Rate [ From Monitor] Respiratory 14 Rate Respiratory 29 H 14 Rate [Anterior Bilateral Throughout] Blood Pressure 133/80 O2 Sat by Pulse 100 Oximetry 04/19/16 04/19/16 08:30 09:00 Temperature Pulse Rate 113 H 114 H Pulse Rate [ Anterior Bilateral Throughout] Pulse Rate [ From Monitor] Respiratory 22 25 H Rate Respiratory Rate [Anterior Bilateral Throughout] Blood Pressure 151/94 152/99 O2 Sat by Pulse 100 100 Oximetry Constitutional: no acute distress Eyes: non-icteric ENT: other (orally intubated and sedated) Neck: supple Effort: normal Ascultation: Bilateral: clear, rhonchi (occasional) Percussion: Bilateral: not dull Cardiovascular: regular rate and rhythm, irregular rhythm Gastrointestinal: normoactive bowel sounds, soft, non-tender Extremities: no cyanosis, no edema Neurologic: other (RASS 0 ) CBC and BMP: 04/19/16 04:18 04/19/16 04:18 ABG, PT/INR, D-dimer: ABG POC ABG pH 7.527 (7.35-7.45) H 04/19/16 04:25 POC ABG pCO2 27.1 (35-45) L 04/19/16 04:25 POC ABG pO2 88 (80-105) 04/19/16 04:25 POC ABG HCO3 22.5 04/19/16 04:25 POC ABG Total CO2 23 04/19/16 04:25 POC ABG O2 Sat 98 04/19/16 04:25 PT/INR, D-dimer PT 22.1 Sec. (12.2-14.9) H 04/19/16 08:10 INR 1.93 (0.87-1.13) H 04/19/16 08:10 Abnormal lab findings: Abnormal Labs 03/24/16 03/24/16 03/24/16 17:58 20:25 23:23 WBC RBC Hgb Hct MCV MCH MCHC RDW Plt Count Lymph % (Auto) [place] % (Auto) Lymph # [place] # Baso # Seg Neutrophils % Seg Neuts % (Manual) Lymphocytes % (Manual) Seg Neutrophils # Seg Neutrophils # Man Lymphocytes # (Manual) Monocytes # (Manual) PT INR APTT Heparin Anti-Xa Level POC ABG pH POC ABG pCO2 POC ABG pO2 Sodium 169 H* Potassium 3.5 L Chloride 130.3 H Carbon Dioxide BUN 28 H Creatinine 1.8 H Glucose POC Glucose 112 H Calcium Phosphorus Lactate Dehydrogenase Total Creatine Kinase NT-Pro-B Natriuret Pep Albumin Obofd-9-Rtahznvkr Ukbng-1-Ipaypbwxt Beta Globulins PEP Interpretation Cholesterol 221 H LDL Cholesterol Direct 146 H 03/25/16 03/25/16 03/25/16 05:56 05:56 05:56 WBC 21.3 H RBC 6.32 H Hgb 16.7 H Hct 52.7 H MCV 83 L MCH 27 L MCHC RDW Plt Count Lymph % (Auto) [place] % (Auto) Lymph # [place] # Baso # Seg Neutrophils % Seg Neuts % (Manual) 91.0 H Lymphocytes % (Manual) 4.0 L Seg Neutrophils # Seg Neutrophils # Man 19.4 H Lymphocytes # (Manual) 0.9 L Monocytes # (Manual) 0.9 H PT INR APTT Heparin Anti-Xa Level POC ABG pH POC ABG pCO2 POC ABG pO2 Sodium 172 H* Potassium 3.5 L Chloride 130.4 H Carbon Dioxide BUN 29 H Creatinine 1.8 H Glucose 187 H POC Glucose Calcium Phosphorus Lactate Dehydrogenase 460 H Total Creatine Kinase NT-Pro-B Natriuret Pep Albumin Iqmgy-0-Dpwvjxkyg Ouauz-7-Zgxmhipqv Beta Globulins PEP Interpretation Cholesterol LDL Cholesterol Direct 03/25/16 03/25/16 03/25/16 07:55 12:19 13:00 WBC RBC Hgb Hct MCV MCH MCHC RDW Plt Count Lymph % (Auto) [place] % (Auto) Lymph # [place] # Baso # Seg Neutrophils % Seg Neuts % (Manual) Lymphocytes % (Manual) Seg Neutrophils # Seg Neutrophils # Man Lymphocytes # (Manual) Monocytes # (Manual) PT INR APTT Heparin Anti-Xa Level POC ABG pH POC ABG pCO2 POC ABG pO2 Sodium Potassium Chloride Carbon Dioxide BUN Creatinine Glucose POC Glucose 231 H 314 H Calcium Phosphorus Lactate Dehydrogenase Total Creatine Kinase NT-Pro-B Natriuret Pep Albumin 3.4 L Uzgmp-8-Woetnchzv 0.4 H Wqjno-5-Pzxnqnwgx 1.1 H Beta Globulins 0.6 H PEP Interpretation see below H Cholesterol LDL Cholesterol Direct 03/25/16 03/25/16 03/26/16 16:41 22:45 08:32 WBC RBC Hgb Hct MCV MCH MCHC RDW Plt Count Lymph % (Auto) [place] % (Auto) Lymph # [place] # Baso # Seg Neutrophils % Seg Neuts % (Manual) Lymphocytes % (Manual) Seg Neutrophils # Seg Neutrophils # Man Lymphocytes # (Manual) Monocytes # (Manual) PT INR APTT Heparin Anti-Xa Level POC ABG pH POC ABG pCO2 POC ABG pO2 Sodium Potassium Chloride Carbon Dioxide BUN Creatinine Glucose POC Glucose 444 H 326 H 360 H Calcium Phosphorus Lactate Dehydrogenase Total Creatine Kinase NT-Pro-B Natriuret Pep Albumin Wwlvt-4-Aaurjjuvo Zqjiq-8-Xnjizbhhl Beta Globulins PEP Interpretation Cholesterol LDL Cholesterol Direct 03/26/16 03/26/16 03/26/16 12:38 15:33 15:47 WBC RBC Hgb Hct MCV MCH MCHC RDW Plt Count Lymph % (Auto) [place] % (Auto) Lymph # [place] # Baso # Seg Neutrophils % Seg Neuts % (Manual) Lymphocytes % (Manual) Seg Neutrophils # Seg Neutrophils # Man Lymphocytes # (Manual) Monocytes # (Manual) PT INR APTT Heparin Anti-Xa Level POC ABG pH 7.511 H POC ABG pCO2 26.5 L POC ABG pO2 70 L Sodium Potassium Chloride Carbon Dioxide BUN Creatinine Glucose POC Glucose 280 H 174 H Calcium Phosphorus Lactate Dehydrogenase Total Creatine Kinase NT-Pro-B Natriuret Pep Albumin Wbstl-1-Shmszvocu Tywdv-6-Cibkljzic Beta Globulins PEP Interpretation Cholesterol LDL Cholesterol Direct 03/26/16 03/26/16 03/26/16 16:47 16:47 18:51 WBC 14.0 H RBC 5.17 H Hgb Hct MCV MCH 26 L MCHC 31 L RDW Plt Count 139 L Lymph % (Auto) [place] % (Auto) Lymph # [place] # Baso # Seg Neutrophils % Seg Neuts % (Manual) Lymphocytes % (Manual) Seg Neutrophils # Seg Neutrophils # Man Lymphocytes # (Manual) Monocytes # (Manual) PT INR APTT Heparin Anti-Xa Level POC ABG pH POC ABG pCO2 33.9 L POC ABG pO2 150 H Sodium 164 H* Potassium 3.4 L Chloride 128.5 H Carbon Dioxide BUN 30 H Creatinine 2.2 H Glucose 121 H POC Glucose Calcium 8.1 L Phosphorus Lactate Dehydrogenase Total Creatine Kinase NT-Pro-B Natriuret Pep Albumin Zdbvm-6-Wfemeahmt Mcmzh-6-Sascnuukc Beta Globulins PEP Interpretation Cholesterol LDL Cholesterol Direct 03/27/16 03/27/16 03/27/16 02:19 05:47 06:02 WBC RBC Hgb Hct MCV MCH MCHC RDW Plt Count Lymph % (Auto) [place] % (Auto) Lymph # [place] # Baso # Seg Neutrophils % Seg Neuts % (Manual) Lymphocytes % (Manual) Seg Neutrophils # Seg Neutrophils # Man Lymphocytes # (Manual) Monocytes # (Manual) PT INR APTT Heparin Anti-Xa Level POC ABG pH POC ABG pCO2 27.3 L 30.3 L POC ABG pO2 50 L 112 H Sodium 158 H Potassium Chloride 126.7 H Carbon Dioxide 20 L BUN 25 H Creatinine 1.7 H Glucose POC Glucose Calcium 7.0 L Phosphorus Lactate Dehydrogenase Total Creatine Kinase NT-Pro-B Natriuret Pep Albumin Pblkv-9-Gaavfidei Vxspn-5-Zdwxrqwkn Beta Globulins PEP Interpretation Cholesterol LDL Cholesterol Direct 03/27/16 03/27/16 03/27/16 07:51 09:20 11:45 WBC 14.2 H RBC Hgb Hct MCV 83 L MCH 27 L MCHC RDW Plt Count 113 L Lymph % (Auto) [place] % (Auto) Lymph # [place] # Baso # Seg Neutrophils % Seg Neuts % (Manual) Lymphocytes % (Manual) Seg Neutrophils # Seg Neutrophils # Man Lymphocytes # (Manual) Monocytes # (Manual) PT INR APTT Heparin Anti-Xa Level POC ABG pH POC ABG pCO2 POC ABG pO2 Sodium Potassium Chloride Carbon Dioxide BUN Creatinine Glucose POC Glucose 124 H 241 H Calcium Phosphorus Lactate Dehydrogenase Total Creatine Kinase NT-Pro-B Natriuret Pep Albumin Ykyag-6-Tjksundhi Qzspl-0-Zrdzsuxil Beta Globulins PEP Interpretation Cholesterol LDL Cholesterol Direct 03/27/16 03/27/16 03/28/16 16:39 22:03 03:29 WBC RBC Hgb Hct MCV MCH MCHC RDW Plt Count Lymph % (Auto) [place] % (Auto) Lymph # [place] # Baso # Seg Neutrophils % Seg Neuts % (Manual) Lymphocytes % (Manual) Seg Neutrophils # Seg Neutrophils # Man Lymphocytes # (Manual) Monocytes # (Manual) PT INR APTT Heparin Anti-Xa Level POC ABG pH POC ABG pCO2 POC ABG pO2 Sodium Potassium Chloride Carbon Dioxide BUN Creatinine Glucose POC Glucose 266 H 167 H 241 H Calcium Phosphorus Lactate Dehydrogenase Total Creatine Kinase NT-Pro-B Natriuret Pep Albumin Wtqvi-9-Ypptyhcid Qpxhx-8-Xzuaeqxhv Beta Globulins PEP Interpretation Cholesterol LDL Cholesterol Direct 03/28/16 03/28/16 03/28/16 05:00 05:00 05:00 WBC RBC Hgb Hct MCV 83 L MCH 27 L MCHC RDW Plt Count 106 L Lymph % (Auto) [place] % (Auto) 10.1 H Lymph # [place] # 1.0 H Baso # Seg Neutrophils % 75.1 H Seg Neuts % (Manual) Lymphocytes % (Manual) Seg Neutrophils # Seg Neutrophils # Man Lymphocytes # (Manual) Monocytes # (Manual) PT INR APTT Heparin Anti-Xa Level POC ABG pH POC ABG pCO2 POC ABG pO2 Sodium 147 H D Potassium 3.1 L D Chloride 112.3 H Carbon Dioxide 21 L BUN Creatinine Glucose 208 H POC Glucose Calcium 7.0 L Phosphorus 2.2 L Lactate Dehydrogenase Total Creatine Kinase NT-Pro-B Natriuret Pep Albumin Bwdev-8-Nsjvksmab Qniba-3-Pynwxppxg Beta Globulins PEP Interpretation Cholesterol LDL Cholesterol Direct 03/28/16 03/28/16 03/28/16 05:14 08:41 10:56 WBC RBC Hgb Hct MCV MCH MCHC RDW Plt Count Lymph % (Auto) [place] % (Auto) Lymph # [place] # Baso # Seg Neutrophils % Seg Neuts % (Manual) Lymphocytes % (Manual) Seg Neutrophils # Seg Neutrophils # Man Lymphocytes # (Manual) Monocytes # (Manual) PT INR APTT Heparin Anti-Xa Level POC ABG pH 7.457 H POC ABG pCO2 29.7 L 27.7 L POC ABG pO2 Sodium Potassium Chloride Carbon Dioxide BUN Creatinine Glucose POC Glucose 228 H Calcium Phosphorus Lactate Dehydrogenase Total Creatine Kinase NT-Pro-B Natriuret Pep Albumin Ajsdp-1-Hefmbiefc Dmhlc-3-Znvezrjas Beta Globulins PEP Interpretation Cholesterol LDL Cholesterol Direct 03/28/16 03/28/16 03/28/16 11:37 13:29 16:22 WBC RBC Hgb Hct MCV MCH MCHC RDW Plt Count Lymph % (Auto) [place] % (Auto) Lymph # [place] # Baso # Seg Neutrophils % Seg Neuts % (Manual) Lymphocytes % (Manual) Seg Neutrophils # Seg Neutrophils # Man Lymphocytes # (Manual) Monocytes # (Manual) PT INR APTT Heparin Anti-Xa Level POC ABG pH POC ABG pCO2 POC ABG pO2 Sodium Potassium Chloride Carbon Dioxide BUN Creatinine Glucose POC Glucose 226 H 200 H Calcium Phosphorus Lactate Dehydrogenase Total Creatine Kinase 356 H NT-Pro-B Natriuret Pep Albumin Zsypu-4-Kyaplxcvw Tehnu-1-Nzqfvwuex Beta Globulins PEP Interpretation Cholesterol LDL Cholesterol Direct 03/28/16 03/29/16 03/29/16 21:48 04:50 04:50 WBC RBC Hgb 11.5 L Hct 35.3 L MCV 81 L MCH 26 L MCHC RDW Plt Count 97 L Lymph % (Auto) [place] % (Auto) 11.7 H Lymph # [place] # 1.1 H Baso # Seg Neutrophils % Seg Neuts % (Manual) Lymphocytes % (Manual) Seg Neutrophils # Seg Neutrophils # Man Lymphocytes # (Manual) Monocytes # (Manual) PT INR APTT Heparin Anti-Xa Level POC ABG pH POC ABG pCO2 POC ABG pO2 Sodium 136 L D Potassium 3.3 L Chloride Carbon Dioxide 20 L BUN Creatinine Glucose 386 H POC Glucose 188 H Calcium 6.8 L Phosphorus 1.6 L D Lactate Dehydrogenase Total Creatine Kinase NT-Pro-B Natriuret Pep Albumin Rxtcj-4-Sapgfonsz Ibfqu-2-Zgtdhtybw Beta Globulins PEP Interpretation Cholesterol LDL Cholesterol Direct 03/29/16 03/29/16 03/29/16 08:10 11:12 16:09 WBC RBC Hgb Hct MCV MCH MCHC RDW Plt Count Lymph % (Auto) [place] % (Auto) Lymph # [place] # Baso # Seg Neutrophils % Seg Neuts % (Manual) Lymphocytes % (Manual) Seg Neutrophils # Seg Neutrophils # Man Lymphocytes # (Manual) Monocytes # (Manual) PT INR APTT Heparin Anti-Xa Level POC ABG pH POC ABG pCO2 POC ABG pO2 Sodium Potassium Chloride Carbon Dioxide BUN Creatinine Glucose POC Glucose 230 H 180 H 46 L Calcium Phosphorus Lactate Dehydrogenase Total Creatine Kinase NT-Pro-B Natriuret Pep Albumin Nktiv-3-Atuzcpjzl Nkqzt-9-Yhimrnlxo Beta Globulins PEP Interpretation Cholesterol LDL Cholesterol Direct 03/29/16 03/29/16 03/30/16 16:12 18:15 02:53 WBC RBC Hgb Hct MCV MCH MCHC RDW Plt Count Lymph % (Auto) [place] % (Auto) Lymph # [place] # Baso # Seg Neutrophils % Seg Neuts % (Manual) Lymphocytes % (Manual) Seg Neutrophils # Seg Neutrophils # Man Lymphocytes # (Manual) Monocytes # (Manual) PT INR APTT Heparin Anti-Xa Level POC ABG pH POC ABG pCO2 POC ABG pO2 Sodium Potassium Chloride Carbon Dioxide BUN Creatinine Glucose POC Glucose 52 L 118 H 130 H Calcium Phosphorus Lactate Dehydrogenase Total Creatine Kinase NT-Pro-B Natriuret Pep Albumin Lghjf-5-Xezrhoatx Qpisn-4-Xosdkhgmf Beta Globulins PEP Interpretation Cholesterol LDL Cholesterol Direct 03/30/16 03/30/16 03/30/16 04:00 04:00 05:29 WBC RBC Hgb Hct MCV 81 L MCH 26 L MCHC RDW Plt Count 116 L Lymph % (Auto) 10.8 L [place] % (Auto) 13.1 H Lymph # 1.0 L [place] # 1.3 H Baso # Seg Neutrophils % 74.2 H Seg Neuts % (Manual) Lymphocytes % (Manual) Seg Neutrophils # Seg Neutrophils # Man Lymphocytes # (Manual) Monocytes # (Manual) PT INR APTT Heparin Anti-Xa Level POC ABG pH 7.522 H POC ABG pCO2 22.7 L POC ABG pO2 137 H Sodium 147 H D Potassium Chloride 115.5 H Carbon Dioxide 20 L BUN Creatinine Glucose 116 H POC Glucose Calcium 7.6 L Phosphorus 2.3 L D Lactate Dehydrogenase Total Creatine Kinase NT-Pro-B Natriuret Pep Albumin Yisue-8-Ujdvraxik Wmbqx-0-Rxchlmmvo Beta Globulins PEP Interpretation Cholesterol LDL Cholesterol Direct 03/30/16 03/30/16 03/30/16 05:47 08:05 08:59 WBC RBC Hgb Hct MCV MCH MCHC RDW Plt Count Lymph % (Auto) [place] % (Auto) Lymph # [place] # Baso # Seg Neutrophils % Seg Neuts % (Manual) Lymphocytes % (Manual) Seg Neutrophils # Seg Neutrophils # Man Lymphocytes # (Manual) Monocytes # (Manual) PT INR APTT Heparin Anti-Xa Level POC ABG pH POC ABG pCO2 26.2 L POC ABG pO2 115 H Sodium Potassium Chloride Carbon Dioxide BUN Creatinine Glucose POC Glucose 138 H 171 H Calcium Phosphorus Lactate Dehydrogenase Total Creatine Kinase NT-Pro-B Natriuret Pep Albumin Nzvbj-4-Yoierpaoy Jdmtr-7-Xyejehqsm Beta Globulins PEP Interpretation Cholesterol LDL Cholesterol Direct 03/30/16 03/30/16 03/30/16 12:11 12:11 16:39 WBC RBC Hgb Hct MCV MCH MCHC RDW Plt Count Lymph % (Auto) [place] % (Auto) Lymph # [place] # Baso # Seg Neutrophils % Seg Neuts % (Manual) Lymphocytes % (Manual) Seg Neutrophils # Seg Neutrophils # Man Lymphocytes # (Manual) Monocytes # (Manual) PT INR APTT Heparin Anti-Xa Level POC ABG pH 7.476 H POC ABG pCO2 29.0 L POC ABG pO2 Sodium Potassium Chloride Carbon Dioxide BUN Creatinine Glucose POC Glucose 142 H 59 L Calcium Phosphorus Lactate Dehydrogenase Total Creatine Kinase NT-Pro-B Natriuret Pep Albumin Ibyfb-2-Cnyhfgajh Lqpne-0-Afrwstbme Beta Globulins PEP Interpretation Cholesterol LDL Cholesterol Direct 03/30/16 03/30/16 03/31/16 18:41 21:59 05:02 WBC RBC Hgb Hct MCV MCH MCHC RDW Plt Count Lymph % (Auto) [place] % (Auto) Lymph # [place] # Baso # Seg Neutrophils % Seg Neuts % (Manual) Lymphocytes % (Manual) Seg Neutrophils # Seg Neutrophils # Man Lymphocytes # (Manual) Monocytes # (Manual) PT INR APTT Heparin Anti-Xa Level POC ABG pH 7.519 H POC ABG pCO2 21.8 L POC ABG pO2 142 H Sodium Potassium Chloride Carbon Dioxide BUN Creatinine Glucose POC Glucose 145 H 154 H Calcium Phosphorus Lactate Dehydrogenase Total Creatine Kinase NT-Pro-B Natriuret Pep Albumin Dxgfi-3-Jikrgoijm Skoeo-7-Mvhjtvlul Beta Globulins PEP Interpretation Cholesterol LDL Cholesterol Direct 03/31/16 03/31/16 03/31/16 05:15 05:15 05:15 WBC 13.4 H RBC 5.21 H Hgb Hct MCV 81 L MCH 26 L MCHC RDW Plt Count Lymph % (Auto) 9.5 L [place] % (Auto) 14.0 H Lymph # [place] # 1.9 H Baso # Seg Neutrophils % 75.0 H Seg Neuts % (Manual) Lymphocytes % (Manual) Seg Neutrophils # 10.1 H Seg Neutrophils # Man Lymphocytes # (Manual) Monocytes # (Manual) PT INR APTT Heparin Anti-Xa Level POC ABG pH POC ABG pCO2 POC ABG pO2 Sodium Potassium Chloride 108.5 H Carbon Dioxide 19 L BUN Creatinine Glucose 188 H POC Glucose Calcium Phosphorus Lactate Dehydrogenase Total Creatine Kinase NT-Pro-B Natriuret Pep 1089 H Albumin Tvvny-4-Kpidakbvg Eccos-1-Jidrblvfd Beta Globulins PEP Interpretation Cholesterol LDL Cholesterol Direct 1103/31/16 03/31/16 07:23 11:12 15:20 WBC RBC Hgb Hct MCV MCH MCHC RDW Plt Count Lymph % (Auto) [place] % (Auto) Lymph # [place] # Baso # Seg Neutrophils % Seg Neuts % (Manual) Lymphocytes % (Manual) Seg Neutrophils # Seg Neutrophils # Man Lymphocytes # (Manual) Monocytes # (Manual) PT INR APTT Heparin Anti-Xa Level POC ABG pH POC ABG pCO2 POC ABG pO2 Sodium Potassium Chloride Carbon Dioxide BUN Creatinine Glucose POC Glucose 233 H 228 H 208 H Calcium Phosphorus Lactate Dehydrogenase Total Creatine Kinase NT-Pro-B Natriuret Pep Albumin Tbqfz-7-Ohlevafmx Nbzyt-0-Wtjsreeab Beta Globulins PEP Interpretation Cholesterol LDL Cholesterol Direct 03/31/16 04/01/16 04/01/16 21:27 04:41 05:35 WBC 12.1 H RBC Hgb Hct MCV 81 L MCH 26 L MCHC RDW Plt Count Lymph % (Auto) 8.5 L [place] % (Auto) 14.0 H Lymph # 1.0 L [place] # 1.7 H Baso # Seg Neutrophils % 76.2 H Seg Neuts % (Manual) Lymphocytes % (Manual) Seg Neutrophils # 9.2 H Seg Neutrophils # Man Lymphocytes # (Manual) Monocytes # (Manual) PT INR APTT Heparin Anti-Xa Level POC ABG pH 7.455 H POC ABG pCO2 31.0 L POC ABG pO2 Sodium Potassium Chloride Carbon Dioxide BUN Creatinine Glucose POC Glucose 162 H Calcium Phosphorus Lactate Dehydrogenase Total Creatine Kinase NT-Pro-B Natriuret Pep Albumin Wwjah-5-Ulwpukfje Yypgh-5-Igzisilnt Beta Globulins PEP Interpretation Cholesterol LDL Cholesterol Direct 04/01/16 04/01/16 04/01/16 05:35 08:44 12:49 WBC RBC Hgb Hct MCV MCH MCHC RDW Plt Count Lymph % (Auto) [place] % (Auto) Lymph # [place] # Baso # Seg Neutrophils % Seg Neuts % (Manual) Lymphocytes % (Manual) Seg Neutrophils # Seg Neutrophils # Man Lymphocytes # (Manual) Monocytes # (Manual) PT INR APTT Heparin Anti-Xa Level POC ABG pH POC ABG pCO2 POC ABG pO2 Sodium Potassium Chloride Carbon Dioxide BUN Creatinine Glucose 256 H POC Glucose 257 H 279 H Calcium 8.0 L Phosphorus Lactate Dehydrogenase Total Creatine Kinase NT-Pro-B Natriuret Pep 1205 H Albumin Ryaiu-5-Eyljemwaf Mrlex-7-Ccdwdzhaf Beta Globulins PEP Interpretation Cholesterol LDL Cholesterol Direct 04/01/16 04/02/16 04/02/16 18:12 00:42 04:17 WBC RBC Hgb Hct MCV MCH MCHC RDW Plt Count Lymph % (Auto) [place] % (Auto) Lymph # [place] # Baso # Seg Neutrophils % Seg Neuts % (Manual) Lymphocytes % (Manual) Seg Neutrophils # Seg Neutrophils # Man Lymphocytes # (Manual) Monocytes # (Manual) PT INR APTT Heparin Anti-Xa Level POC ABG pH 7.582 H POC ABG pCO2 26.8 L POC ABG pO2 Sodium Potassium Chloride Carbon Dioxide BUN Creatinine Glucose POC Glucose 168 H 282 H Calcium Phosphorus Lactate Dehydrogenase Total Creatine Kinase NT-Pro-B Natriuret Pep Albumin Unjlx-3-Bfmfbhtnf Nnvcv-7-Sjuyyqkbq Beta Globulins PEP Interpretation Cholesterol LDL Cholesterol Direct 04/02/16 04/02/16 04/02/16 05:00 05:00 06:27 WBC 12.4 H RBC Hgb Hct MCV 81 L MCH 26 L MCHC RDW Plt Count Lymph % (Auto) 6.4 L [place] % (Auto) 13.3 H Lymph # 0.8 L [place] # 1.7 H Baso # Seg Neutrophils % 79.4 H Seg Neuts % (Manual) Lymphocytes % (Manual) Seg Neutrophils # 9.9 H Seg Neutrophils # Man Lymphocytes # (Manual) Monocytes # (Manual) PT INR APTT Heparin Anti-Xa Level POC ABG pH POC ABG pCO2 POC ABG pO2 Sodium 146 H Potassium Chloride Carbon Dioxide BUN Creatinine Glucose 334 H POC Glucose 317 H Calcium 8.0 L Phosphorus Lactate Dehydrogenase Total Creatine Kinase NT-Pro-B Natriuret Pep Albumin Abznr-5-Ysbainsmq Qenbw-3-Wrvwygmtn Beta Globulins PEP Interpretation Cholesterol LDL Cholesterol Direct 04/02/16 04/02/16 04/02/16 11:51 13:10 17:24 WBC RBC Hgb Hct MCV MCH MCHC RDW Plt Count Lymph % (Auto) [place] % (Auto) Lymph # [place] # Baso # Seg Neutrophils % Seg Neuts % (Manual) Lymphocytes % (Manual) Seg Neutrophils # Seg Neutrophils # Man Lymphocytes # (Manual) Monocytes # (Manual) PT INR APTT Heparin Anti-Xa Level POC ABG pH 7.518 H POC ABG pCO2 POC ABG pO2 Sodium Potassium Chloride Carbon Dioxide BUN Creatinine Glucose POC Glucose 278 H 195 H Calcium Phosphorus Lactate Dehydrogenase Total Creatine Kinase NT-Pro-B Natriuret Pep Albumin Jwvkk-2-Wkhnzwhlg Ozhcq-5-Extvydaxx Beta Globulins PEP Interpretation Cholesterol LDL Cholesterol Direct 04/03/16 04/03/16 04/03/16 00:18 04:10 04:10 WBC 14.3 H RBC Hgb Hct MCV 81 L MCH 26 L MCHC RDW Plt Count Lymph % (Auto) 9.0 L [place] % (Auto) 10.7 H Lymph # [place] # 1.5 H Baso # 0.2 H Seg Neutrophils % 78.5 H Seg Neuts % (Manual) Lymphocytes % (Manual) Seg Neutrophils # 11.3 H Seg Neutrophils # Man Lymphocytes # (Manual) Monocytes # (Manual) PT INR APTT Heparin Anti-Xa Level POC ABG pH POC ABG pCO2 POC ABG pO2 Sodium 148 H Potassium Chloride 108.1 H Carbon Dioxide BUN 21 H Creatinine Glucose 227 H POC Glucose 144 H Calcium 8.2 L Phosphorus Lactate Dehydrogenase Total Creatine Kinase NT-Pro-B Natriuret Pep Albumin Mlbci-9-Nnsonxcaa Ypehm-0-Kjjttocjg Beta Globulins PEP Interpretation Cholesterol LDL Cholesterol Direct 04/03/16 04/03/16 04/04/16 11:14 17:10 04:00 WBC 14.5 H RBC Hgb Hct MCV 81 L MCH 26 L MCHC RDW Plt Count Lymph % (Auto) 7.2 L [place] % (Auto) 7.6 H Lymph # 1.0 L [place] # 1.1 H Baso # Seg Neutrophils % 84.5 H Seg Neuts % (Manual) Lymphocytes % (Manual) Seg Neutrophils # 12.3 H Seg Neutrophils # Man Lymphocytes # (Manual) Monocytes # (Manual) PT INR APTT Heparin Anti-Xa Level POC ABG pH POC ABG pCO2 POC ABG pO2 Sodium Potassium Chloride Carbon Dioxide BUN Creatinine Glucose POC Glucose 267 H 212 H Calcium Phosphorus Lactate Dehydrogenase Total Creatine Kinase NT-Pro-B Natriuret Pep Albumin Fjsso-0-Glfftkbxy Djnet-5-Ijuaviujw Beta Globulins PEP Interpretation Cholesterol LDL Cholesterol Direct 04/04/16 04/04/16 04/04/16 05:00 09:55 09:55 WBC RBC Hgb 11.5 L Hct MCV MCH MCHC RDW Plt Count Lymph % (Auto) [place] % (Auto) Lymph # [place] # Baso # Seg Neutrophils % Seg Neuts % (Manual) Lymphocytes % (Manual) Seg Neutrophils # Seg Neutrophils # Man Lymphocytes # (Manual) Monocytes # (Manual) PT INR APTT 42.1 H Heparin Anti-Xa Level POC ABG pH POC ABG pCO2 POC ABG pO2 Sodium 146 H Potassium Chloride Carbon Dioxide BUN 22 H Creatinine Glucose 128 H POC Glucose Calcium Phosphorus Lactate Dehydrogenase Total Creatine Kinase NT-Pro-B Natriuret Pep Albumin Kpsyn-7-Orkmkepow Iwetr-2-Mmcwqvoum Beta Globulins PEP Interpretation Cholesterol LDL Cholesterol Direct 04/04/16 04/04/16 04/04/16 11:45 17:49 17:55 WBC RBC Hgb Hct MCV MCH MCHC RDW Plt Count Lymph % (Auto) [place] % (Auto) Lymph # [place] # Baso # Seg Neutrophils % Seg Neuts % (Manual) Lymphocytes % (Manual) Seg Neutrophils # Seg Neutrophils # Man Lymphocytes # (Manual) Monocytes # (Manual) PT INR APTT Heparin Anti-Xa Level 1.19 H POC ABG pH POC ABG pCO2 POC ABG pO2 Sodium Potassium Chloride Carbon Dioxide BUN Creatinine Glucose POC Glucose 231 H 186 H Calcium Phosphorus Lactate Dehydrogenase Total Creatine Kinase NT-Pro-B Natriuret Pep Albumin Innef-5-Outvmyhye Irmup-7-Vwfwguwlh Beta Globulins PEP Interpretation Cholesterol LDL Cholesterol Direct 04/05/16 04/05/16 04/05/16 00:35 05:32 05:42 WBC RBC Hgb Hct MCV MCH MCHC RDW Plt Count Lymph % (Auto) [place] % (Auto) Lymph # [place] # Baso # Seg Neutrophils % Seg Neuts % (Manual) Lymphocytes % (Manual) Seg Neutrophils # Seg Neutrophils # Man Lymphocytes # (Manual) Monocytes # (Manual) PT INR APTT Heparin Anti-Xa Level POC ABG pH 7.491 H POC ABG pCO2 POC ABG pO2 Sodium Potassium Chloride Carbon Dioxide BUN Creatinine Glucose POC Glucose 192 H 242 H Calcium Phosphorus Lactate Dehydrogenase Total Creatine Kinase NT-Pro-B Natriuret Pep Albumin Bvuhy-8-Qjebjcaic Pifyh-7-Mfattsuet Beta Globulins PEP Interpretation Cholesterol LDL Cholesterol Direct 04/05/16 04/05/16 04/05/16 06:20 06:20 12:19 WBC 13.9 H RBC Hgb 11.6 L Hct MCV 81 L MCH 26 L MCHC RDW Plt Count Lymph % (Auto) 9.6 L [place] % (Auto) 8.7 H Lymph # [place] # 1.2 H Baso # Seg Neutrophils % 80.9 H Seg Neuts % (Manual) Lymphocytes % (Manual) Seg Neutrophils # 11.3 H Seg Neutrophils # Man Lymphocytes # (Manual) Monocytes # (Manual) PT INR APTT Heparin Anti-Xa Level POC ABG pH POC ABG pCO2 POC ABG pO2 Sodium 148 H Potassium Chloride Carbon Dioxide BUN 23 H Creatinine Glucose 242 H POC Glucose 187 H Calcium Phosphorus Lactate Dehydrogenase Total Creatine Kinase NT-Pro-B Natriuret Pep Albumin Jjnxt-3-Sozzbeixn Zboev-9-Brbwzjlqd Beta Globulins PEP Interpretation Cholesterol LDL Cholesterol Direct 04/05/16 04/05/16 04/06/16 17:10 23:45 05:23 WBC 13.0 H RBC Hgb Hct MCV 82 L MCH 26 L MCHC 31 L RDW Plt Count Lymph % (Auto) 6.7 L [place] % (Auto) 8.3 H Lymph # 0.9 L [place] # 1.1 H Baso # Seg Neutrophils % 84.6 H Seg Neuts % (Manual) Lymphocytes % (Manual) Seg Neutrophils # 11.0 H Seg Neutrophils # Man Lymphocytes # (Manual) Monocytes # (Manual) PT INR APTT Heparin Anti-Xa Level POC ABG pH POC ABG pCO2 POC ABG pO2 Sodium Potassium Chloride Carbon Dioxide BUN Creatinine Glucose POC Glucose 169 H 202 H Calcium Phosphorus Lactate Dehydrogenase Total Creatine Kinase NT-Pro-B Natriuret Pep Albumin Rdnxe-6-Jmfrqbtuc Omnra-6-Iuouqvbbt Beta Globulins PEP Interpretation Cholesterol LDL Cholesterol Direct 04/06/16 04/06/16 04/06/16 05:23 05:23 06:11 WBC RBC Hgb Hct MCV MCH MCHC RDW Plt Count Lymph % (Auto) [place] % (Auto) Lymph # [place] # Baso # Seg Neutrophils % Seg Neuts % (Manual) Lymphocytes % (Manual) Seg Neutrophils # Seg Neutrophils # Man Lymphocytes # (Manual) Monocytes # (Manual) PT INR APTT Heparin Anti-Xa Level 0.21 L POC ABG pH POC ABG pCO2 POC ABG pO2 Sodium 153 H Potassium Chloride 111.3 H Carbon Dioxide BUN 22 H Creatinine Glucose 62 L POC Glucose 56 L Calcium Phosphorus Lactate Dehydrogenase Total Creatine Kinase NT-Pro-B Natriuret Pep Albumin Hqbjl-6-Cslyccxzk Gdgcj-4-Lhrmdfygi Beta Globulins PEP Interpretation Cholesterol LDL Cholesterol Direct 04/06/16 04/06/16 04/06/16 06:52 11:36 14:58 WBC RBC Hgb Hct MCV MCH MCHC RDW Plt Count Lymph % (Auto) [place] % (Auto) Lymph # [place] # Baso # Seg Neutrophils % Seg Neuts % (Manual) Lymphocytes % (Manual) Seg Neutrophils # Seg Neutrophils # Man Lymphocytes # (Manual) Monocytes # (Manual) PT INR APTT Heparin Anti-Xa Level POC ABG pH POC ABG pCO2 POC ABG pO2 Sodium Potassium Chloride Carbon Dioxide BUN Creatinine Glucose POC Glucose 206 H 139 H 147 H Calcium Phosphorus Lactate Dehydrogenase Total Creatine Kinase NT-Pro-B Natriuret Pep Albumin Jexzr-2-Hsnnwyqzs Nonqr-7-Uoreyiawo Beta Globulins PEP Interpretation Cholesterol LDL Cholesterol Direct 04/06/16 04/06/16 04/06/16 16:03 21:18 23:53 WBC RBC Hgb Hct MCV MCH MCHC RDW Plt Count Lymph % (Auto) [place] % (Auto) Lymph # [place] # Baso # Seg Neutrophils % Seg Neuts % (Manual) Lymphocytes % (Manual) Seg Neutrophils # Seg Neutrophils # Man Lymphocytes # (Manual) Monocytes # (Manual) PT INR APTT Heparin Anti-Xa Level POC ABG pH POC ABG pCO2 POC ABG pO2 Sodium Potassium Chloride Carbon Dioxide BUN Creatinine Glucose POC Glucose 154 H 293 H 301 H Calcium Phosphorus Lactate Dehydrogenase Total Creatine Kinase NT-Pro-B Natriuret Pep Albumin Wrgsr-9-Uluevorre Qqxex-2-Hkpkiyica Beta Globulins PEP Interpretation Cholesterol LDL Cholesterol Direct 04/07/16 04/07/16 04/07/16 02:30 05:11 05:11 WBC 12.5 H RBC Hgb 11.5 L Hct MCV 82 L MCH 26 L MCHC 31 L RDW Plt Count Lymph % (Auto) [place] % (Auto) Lymph # [place] # Baso # Seg Neutrophils % Seg Neuts % (Manual) Lymphocytes % (Manual) Seg Neutrophils # Seg Neutrophils # Man Lymphocytes # (Manual) Monocytes # (Manual) PT INR APTT Heparin Anti-Xa Level 0.11 L POC ABG pH POC ABG pCO2 POC ABG pO2 Sodium 150 H Potassium Chloride 109.5 H Carbon Dioxide BUN 28 H Creatinine Glucose 264 H POC Glucose Calcium Phosphorus Lactate Dehydrogenase Total Creatine Kinase NT-Pro-B Natriuret Pep Albumin Lbins-7-Pkmlddazp Dzmbb-9-Pcaecnezn Beta Globulins PEP Interpretation Cholesterol LDL Cholesterol Direct 04/07/16 04/07/16 04/07/16 06:46 10:18 11:50 WBC RBC Hgb Hct MCV MCH MCHC RDW Plt Count Lymph % (Auto) [place] % (Auto) Lymph # [place] # Baso # Seg Neutrophils % Seg Neuts % (Manual) Lymphocytes % (Manual) Seg Neutrophils # Seg Neutrophils # Man Lymphocytes # (Manual) Monocytes # (Manual) PT 15.1 H INR 1.20 H APTT Heparin Anti-Xa Level POC ABG pH POC ABG pCO2 POC ABG pO2 Sodium Potassium Chloride Carbon Dioxide BUN Creatinine Glucose POC Glucose 259 H 288 H Calcium Phosphorus Lactate Dehydrogenase Total Creatine Kinase NT-Pro-B Natriuret Pep Albumin Fixzy-4-Ufekspsxj Psmle-5-Hnbyrtwvn Beta Globulins PEP Interpretation Cholesterol LDL Cholesterol Direct 04/07/16 04/08/16 04/08/16 17:58 01:25 06:49 WBC RBC Hgb Hct MCV MCH MCHC RDW Plt Count Lymph % (Auto) [place] % (Auto) Lymph # [place] # Baso # Seg Neutrophils % Seg Neuts % (Manual) Lymphocytes % (Manual) Seg Neutrophils # Seg Neutrophils # Man Lymphocytes # (Manual) Monocytes # (Manual) PT INR APTT Heparin Anti-Xa Level POC ABG pH POC ABG pCO2 POC ABG pO2 Sodium 156 H Potassium Chloride 114.7 H Carbon Dioxide BUN 33 H Creatinine Glucose 169 H POC Glucose 330 H 146 H Calcium Phosphorus Lactate Dehydrogenase Total Creatine Kinase NT-Pro-B Natriuret Pep Albumin Mbrlb-8-Subyivjmk Sfqph-2-Pkxnsxsux Beta Globulins PEP Interpretation Cholesterol LDL Cholesterol Direct 04/08/16 04/08/16 04/08/16 07:34 10:28 10:28 WBC RBC Hgb Hct MCV MCH MCHC RDW Plt Count Lymph % (Auto) [place] % (Auto) Lymph # [place] # Baso # Seg Neutrophils % Seg Neuts % (Manual) Lymphocytes % (Manual) Seg Neutrophils # Seg Neutrophils # Man Lymphocytes # (Manual) Monocytes # (Manual) PT 15.5 H INR 1.24 H APTT Heparin Anti-Xa Level 0.24 L POC ABG pH POC ABG pCO2 POC ABG pO2 Sodium Potassium Chloride Carbon Dioxide BUN Creatinine Glucose POC Glucose 232 H Calcium Phosphorus Lactate Dehydrogenase Total Creatine Kinase NT-Pro-B Natriuret Pep Albumin Bkode-5-Wmuixfbda Yaaow-7-Iisnjhwed Beta Globulins PEP Interpretation Cholesterol LDL Cholesterol Direct 04/08/16 04/08/16 04/09/16 11:36 15:38 00:01 WBC RBC Hgb Hct MCV MCH MCHC RDW Plt Count Lymph % (Auto) [place] % (Auto) Lymph # [place] # Baso # Seg Neutrophils % Seg Neuts % (Manual) Lymphocytes % (Manual) Seg Neutrophils # Seg Neutrophils # Man Lymphocytes # (Manual) Monocytes # (Manual) PT INR APTT Heparin Anti-Xa Level POC ABG pH POC ABG pCO2 POC ABG pO2 Sodium Potassium Chloride Carbon Dioxide BUN Creatinine Glucose POC Glucose 193 H 163 H 180 H Calcium Phosphorus Lactate Dehydrogenase Total Creatine Kinase NT-Pro-B Natriuret Pep Albumin Vpqwj-9-Qqnxpaitl Nndhw-6-Xcznkegfj Beta Globulins PEP Interpretation Cholesterol LDL Cholesterol Direct 04/09/16 04/09/16 04/09/16 06:17 06:42 06:42 WBC RBC Hgb Hct MCV MCH MCHC RDW Plt Count Lymph % (Auto) [place] % (Auto) Lymph # [place] # Baso # Seg Neutrophils % Seg Neuts % (Manual) Lymphocytes % (Manual) Seg Neutrophils # Seg Neutrophils # Man Lymphocytes # (Manual) Monocytes # (Manual) PT 17.4 H INR 1.43 H APTT Heparin Anti-Xa Level POC ABG pH POC ABG pCO2 POC ABG pO2 Sodium 153 H Potassium Chloride 113.2 H Carbon Dioxide BUN 29 H Creatinine Glucose 301 H POC Glucose 249 H Calcium 8.3 L Phosphorus Lactate Dehydrogenase Total Creatine Kinase NT-Pro-B Natriuret Pep Albumin Yftwa-8-Xoxeqbdyt Jadkg-4-Ggawfomdf Beta Globulins PEP Interpretation Cholesterol LDL Cholesterol Direct 04/09/16 04/09/16 04/09/16 07:37 11:26 15:45 WBC RBC Hgb Hct MCV MCH MCHC RDW Plt Count Lymph % (Auto) [place] % (Auto) Lymph # [place] # Baso # Seg Neutrophils % Seg Neuts % (Manual) Lymphocytes % (Manual) Seg Neutrophils # Seg Neutrophils # Man Lymphocytes # (Manual) Monocytes # (Manual) PT INR APTT Heparin Anti-Xa Level POC ABG pH POC ABG pCO2 POC ABG pO2 Sodium Potassium Chloride Carbon Dioxide BUN Creatinine Glucose POC Glucose 283 H 306 H 354 H Calcium Phosphorus Lactate Dehydrogenase Total Creatine Kinase NT-Pro-B Natriuret Pep Albumin Qghes-7-Yfzabcrhi Rggky-9-Sbotmoqlg Beta Globulins PEP Interpretation Cholesterol LDL Cholesterol Direct 04/10/16 04/10/16 04/10/16 00:53 07:15 07:34 WBC RBC Hgb 11.3 L Hct MCV MCH MCHC RDW Plt Count Lymph % (Auto) [place] % (Auto) Lymph # [place] # Baso # Seg Neutrophils % Seg Neuts % (Manual) Lymphocytes % (Manual) Seg Neutrophils # Seg Neutrophils # Man Lymphocytes # (Manual) Monocytes # (Manual) PT INR APTT Heparin Anti-Xa Level POC ABG pH POC ABG pCO2 POC ABG pO2 Sodium Potassium Chloride Carbon Dioxide BUN Creatinine Glucose POC Glucose 323 H 311 H Calcium Phosphorus Lactate Dehydrogenase Total Creatine Kinase NT-Pro-B Natriuret Pep Albumin Migdm-4-Wnmfycbin Xjoug-8-Wycikwipb Beta Globulins PEP Interpretation Cholesterol LDL Cholesterol Direct 04/10/16 04/10/16 04/10/16 07:34 07:34 11:25 WBC RBC Hgb Hct MCV MCH MCHC RDW Plt Count Lymph % (Auto) [place] % (Auto) Lymph # [place] # Baso # Seg Neutrophils % Seg Neuts % (Manual) Lymphocytes % (Manual) Seg Neutrophils # Seg Neutrophils # Man Lymphocytes # (Manual) Monocytes # (Manual) PT 17.3 H INR 1.42 H APTT Heparin Anti-Xa Level POC ABG pH POC ABG pCO2 POC ABG pO2 Sodium 158 H Potassium Chloride 118.6 H Carbon Dioxide BUN 30 H Creatinine Glucose 330 H POC Glucose 335 H Calcium 8.3 L Phosphorus Lactate Dehydrogenase Total Creatine Kinase NT-Pro-B Natriuret Pep Albumin Tjmjo-4-Awnqzayhz Gcvgs-5-Xhfkptmss Beta Globulins PEP Interpretation Cholesterol LDL Cholesterol Direct 04/10/16 04/11/16 04/11/16 16:21 00:29 07:47 WBC RBC Hgb Hct MCV MCH MCHC RDW Plt Count Lymph % (Auto) [place] % (Auto) Lymph # [place] # Baso # Seg Neutrophils % Seg Neuts % (Manual) Lymphocytes % (Manual) Seg Neutrophils # Seg Neutrophils # Man Lymphocytes # (Manual) Monocytes # (Manual) PT 18.4 H INR 1.53 H APTT Heparin Anti-Xa Level POC ABG pH POC ABG pCO2 POC ABG pO2 Sodium Potassium Chloride Carbon Dioxide BUN Creatinine Glucose POC Glucose 230 H 162 H Calcium Phosphorus Lactate Dehydrogenase Total Creatine Kinase NT-Pro-B Natriuret Pep Albumin Hdgpd-4-Bxvceoyam Wyokv-5-Nbzlorypt Beta Globulins PEP Interpretation Cholesterol LDL Cholesterol Direct 04/11/16 04/11/16 04/12/16 07:47 11:22 04:54 WBC RBC Hgb 11.0 L Hct 35.0 L MCV MCH MCHC RDW Plt Count Lymph % (Auto) [place] % (Auto) Lymph # [place] # Baso # Seg Neutrophils % Seg Neuts % (Manual) Lymphocytes % (Manual) Seg Neutrophils # Seg Neutrophils # Man Lymphocytes # (Manual) Monocytes # (Manual) PT INR APTT Heparin Anti-Xa Level POC ABG pH POC ABG pCO2 POC ABG pO2 Sodium 155 H Potassium Chloride 114.5 H Carbon Dioxide BUN 23 H Creatinine Glucose 157 H POC Glucose 229 H Calcium Phosphorus Lactate Dehydrogenase Total Creatine Kinase NT-Pro-B Natriuret Pep Albumin Gnuoe-9-Anrcjjfpf Oikpq-6-Wuxtkzfzs Beta Globulins PEP Interpretation Cholesterol LDL Cholesterol Direct 04/12/16 04/12/16 04/12/16 04:54 04:54 05:57 WBC RBC Hgb Hct MCV MCH MCHC RDW Plt Count Lymph % (Auto) [place] % (Auto) Lymph # [place] # Baso # Seg Neutrophils % Seg Neuts % (Manual) Lymphocytes % (Manual) Seg Neutrophils # Seg Neutrophils # Man Lymphocytes # (Manual) Monocytes # (Manual) PT 22.5 H INR 1.98 H APTT Heparin Anti-Xa Level 0.19 L POC ABG pH POC ABG pCO2 POC ABG pO2 Sodium 156 H Potassium Chloride 115.4 H Carbon Dioxide BUN 23 H Creatinine Glucose 143 H POC Glucose 194 H Calcium Phosphorus Lactate Dehydrogenase Total Creatine Kinase NT-Pro-B Natriuret Pep Albumin Ppgjz-1-Lbpllfqzq Yzqyv-1-Bhyrvltka Beta Globulins PEP Interpretation Cholesterol LDL Cholesterol Direct 04/12/16 04/12/16 04/12/16 12:34 19:01 23:30 WBC RBC Hgb Hct MCV MCH MCHC RDW Plt Count Lymph % (Auto) [place] % (Auto) Lymph # [place] # Baso # Seg Neutrophils % Seg Neuts % (Manual) Lymphocytes % (Manual) Seg Neutrophils # Seg Neutrophils # Man Lymphocytes # (Manual) Monocytes # (Manual) PT INR APTT Heparin Anti-Xa Level POC ABG pH POC ABG pCO2 POC ABG pO2 Sodium Potassium Chloride Carbon Dioxide BUN Creatinine Glucose POC Glucose 291 H 235 H 154 H Calcium Phosphorus Lactate Dehydrogenase Total Creatine Kinase NT-Pro-B Natriuret Pep Albumin Havsd-9-Qypyaelct Wfyyt-6-Tfgdqserh Beta Globulins PEP Interpretation Cholesterol LDL Cholesterol Direct 04/13/16 04/13/16 04/13/16 05:16 05:16 05:28 WBC RBC Hgb Hct MCV MCH MCHC RDW Plt Count Lymph % (Auto) [place] % (Auto) Lymph # [place] # Baso # Seg Neutrophils % Seg Neuts % (Manual) Lymphocytes % (Manual) Seg Neutrophils # Seg Neutrophils # Man Lymphocytes # (Manual) Monocytes # (Manual) PT 27.0 H INR 2.49 H APTT Heparin Anti-Xa Level 0.20 L POC ABG pH POC ABG pCO2 POC ABG pO2 Sodium 150 H Potassium Chloride 110.5 H Carbon Dioxide BUN 21 H Creatinine Glucose 159 H POC Glucose 177 H Calcium Phosphorus Lactate Dehydrogenase Total Creatine Kinase NT-Pro-B Natriuret Pep Albumin Egrvk-6-Adsipmrsb Wwvgn-7-Yurdwbley Beta Globulins PEP Interpretation Cholesterol LDL Cholesterol Direct 04/13/16 04/13/16 04/14/16 11:30 17:54 00:44 WBC RBC Hgb Hct MCV MCH MCHC RDW Plt Count Lymph % (Auto) [place] % (Auto) Lymph # [place] # Baso # Seg Neutrophils % Seg Neuts % (Manual) Lymphocytes % (Manual) Seg Neutrophils # Seg Neutrophils # Man Lymphocytes # (Manual) Monocytes # (Manual) PT INR APTT Heparin Anti-Xa Level POC ABG pH POC ABG pCO2 POC ABG pO2 Sodium Potassium Chloride Carbon Dioxide BUN Creatinine Glucose POC Glucose 181 H 251 H 237 H Calcium Phosphorus Lactate Dehydrogenase Total Creatine Kinase NT-Pro-B Natriuret Pep Albumin Ehqkb-1-Qzignqinh Zqwfg-7-Todmblgyj Beta Globulins PEP Interpretation Cholesterol LDL Cholesterol Direct 04/14/16 04/14/16 04/14/16 05:00 05:42 05:42 WBC RBC Hgb Hct MCV MCH MCHC RDW Plt Count Lymph % (Auto) [place] % (Auto) Lymph # [place] # Baso # Seg Neutrophils % Seg Neuts % (Manual) Lymphocytes % (Manual) Seg Neutrophils # Seg Neutrophils # Man Lymphocytes # (Manual) Monocytes # (Manual) PT 30.3 H INR 2.88 H APTT Heparin Anti-Xa Level 0.27 L POC ABG pH POC ABG pCO2 POC ABG pO2 Sodium Potassium 3.5 L Chloride Carbon Dioxide BUN Creatinine Glucose 160 H POC Glucose Calcium 8.2 L Phosphorus Lactate Dehydrogenase Total Creatine Kinase NT-Pro-B Natriuret Pep Albumin Ykwzj-5-Pjdnngqpv Edtjc-1-Nwcxwwjcx Beta Globulins PEP Interpretation Cholesterol LDL Cholesterol Direct 04/14/16 04/14/16 04/14/16 06:02 06:16 09:18 WBC 12.3 H RBC Hgb 11.4 L Hct MCV 82 L MCH 26 L MCHC RDW Plt Count Lymph % (Auto) [place] % (Auto) Lymph # [place] # Baso # Seg Neutrophils % Seg Neuts % (Manual) Lymphocytes % (Manual) Seg Neutrophils # Seg Neutrophils # Man Lymphocytes # (Manual) Monocytes # (Manual) PT INR APTT Heparin Anti-Xa Level POC ABG pH POC ABG pCO2 POC ABG pO2 Sodium Potassium Chloride Carbon Dioxide BUN Creatinine Glucose POC Glucose 156 H 164 H Calcium Phosphorus Lactate Dehydrogenase Total Creatine Kinase NT-Pro-B Natriuret Pep Albumin Efbar-6-Jwxklspru Cryds-9-Jfavmlrqb Beta Globulins PEP Interpretation Cholesterol LDL Cholesterol Direct 04/14/16 04/15/16 04/15/16 13:58 01:07 06:04 WBC RBC Hgb Hct MCV MCH MCHC RDW Plt Count Lymph % (Auto) [place] % (Auto) Lymph # [place] # Baso # Seg Neutrophils % Seg Neuts % (Manual) Lymphocytes % (Manual) Seg Neutrophils # Seg Neutrophils # Man Lymphocytes # (Manual) Monocytes # (Manual) PT 24.9 H INR 2.25 H APTT Heparin Anti-Xa Level POC ABG pH POC ABG pCO2 POC ABG pO2 Sodium Potassium Chloride Carbon Dioxide BUN Creatinine Glucose POC Glucose 109 H 154 H Calcium Phosphorus Lactate Dehydrogenase Total Creatine Kinase NT-Pro-B Natriuret Pep Albumin Twews-6-Uhhydjspf Qcprx-2-Suejtykbu Beta Globulins PEP Interpretation Cholesterol LDL Cholesterol Direct 04/15/16 04/15/16 04/16/16 06:08 12:41 00:38 WBC RBC Hgb Hct MCV MCH MCHC RDW Plt Count Lymph % (Auto) [place] % (Auto) Lymph # [place] # Baso # Seg Neutrophils % Seg Neuts % (Manual) Lymphocytes % (Manual) Seg Neutrophils # Seg Neutrophils # Man Lymphocytes # (Manual) Monocytes # (Manual) PT INR APTT Heparin Anti-Xa Level POC ABG pH POC ABG pCO2 POC ABG pO2 Sodium Potassium Chloride Carbon Dioxide BUN Creatinine Glucose POC Glucose 165 H 223 H 216 H Calcium Phosphorus Lactate Dehydrogenase Total Creatine Kinase NT-Pro-B Natriuret Pep Albumin Ermhm-6-Fckzsjpjj Ltxcj-3-Gumwdfsah Beta Globulins PEP Interpretation Cholesterol LDL Cholesterol Direct 04/16/16 04/16/16 04/16/16 05:45 07:09 14:00 WBC RBC Hgb Hct MCV MCH MCHC RDW Plt Count Lymph % (Auto) [place] % (Auto) Lymph # [place] # Baso # Seg Neutrophils % Seg Neuts % (Manual) Lymphocytes % (Manual) Seg Neutrophils # Seg Neutrophils # Man Lymphocytes # (Manual) Monocytes # (Manual) PT 19.4 H INR 1.64 H APTT Heparin Anti-Xa Level 0.10 L POC ABG pH POC ABG pCO2 POC ABG pO2 Sodium Potassium Chloride Carbon Dioxide BUN Creatinine Glucose POC Glucose 207 H 69 L Calcium Phosphorus Lactate Dehydrogenase Total Creatine Kinase NT-Pro-B Natriuret Pep Albumin Gvile-9-Szfjxlnmj Ngear-8-Puezcrfvm Beta Globulins PEP Interpretation Cholesterol LDL Cholesterol Direct 04/16/16 04/16/16 04/16/16 17:40 17:52 19:38 WBC RBC Hgb Hct MCV MCH MCHC RDW Plt Count Lymph % (Auto) [place] % (Auto) Lymph # [place] # Baso # Seg Neutrophils % Seg Neuts % (Manual) Lymphocytes % (Manual) Seg Neutrophils # Seg Neutrophils # Man Lymphocytes # (Manual) Monocytes # (Manual) PT INR APTT Heparin Anti-Xa Level 0.26 L POC ABG pH 7.543 H 7.488 H POC ABG pCO2 26.3 L 30.3 L POC ABG pO2 55 L 203 H Sodium Potassium Chloride Carbon Dioxide BUN Creatinine Glucose POC Glucose Calcium Phosphorus Lactate Dehydrogenase Total Creatine Kinase NT-Pro-B Natriuret Pep Albumin Kjoyv-9-Zsabjbfuw Zfqyt-5-Ufyyqwygc Beta Globulins PEP Interpretation Cholesterol LDL Cholesterol Direct 04/17/16 04/17/16 04/17/16 00:04 05:10 05:36 WBC RBC Hgb Hct MCV MCH MCHC RDW Plt Count Lymph % (Auto) [place] % (Auto) Lymph # [place] # Baso # Seg Neutrophils % Seg Neuts % (Manual) Lymphocytes % (Manual) Seg Neutrophils # Seg Neutrophils # Man Lymphocytes # (Manual) Monocytes # (Manual) PT INR APTT Heparin Anti-Xa Level POC ABG pH POC ABG pCO2 32.7 L POC ABG pO2 68 L Sodium Potassium Chloride Carbon Dioxide BUN Creatinine Glucose POC Glucose 113 H 161 H Calcium Phosphorus Lactate Dehydrogenase Total Creatine Kinase NT-Pro-B Natriuret Pep Albumin Exkvn-1-Goylvyzsu Voitq-4-Narpfpbsd Beta Globulins PEP Interpretation Cholesterol LDL Cholesterol Direct 04/17/16 04/17/16 04/17/16 05:41 08:37 11:46 WBC RBC Hgb Hct MCV MCH MCHC RDW Plt Count Lymph % (Auto) [place] % (Auto) Lymph # [place] # Baso # Seg Neutrophils % Seg Neuts % (Manual) Lymphocytes % (Manual) Seg Neutrophils # Seg Neutrophils # Man Lymphocytes # (Manual) Monocytes # (Manual) PT 17.4 H INR 1.43 H APTT Heparin Anti-Xa Level POC ABG pH POC ABG pCO2 POC ABG pO2 Sodium Potassium Chloride Carbon Dioxide BUN Creatinine Glucose POC Glucose 154 H 138 H Calcium Phosphorus Lactate Dehydrogenase Total Creatine Kinase NT-Pro-B Natriuret Pep Albumin Ktdxe-4-Fvtyyhvqd Xdfoz-9-Wgveahibg Beta Globulins PEP Interpretation Cholesterol LDL Cholesterol Direct 04/17/16 04/17/16 04/17/16 12:17 12:17 21:20 WBC 16.5 H RBC 3.31 L Hgb 8.8 L Hct 26.9 L MCV 81 L MCH 27 L MCHC RDW 15.5 H Plt Count Lymph % (Auto) [place] % (Auto) Lymph # [place] # Baso # Seg Neutrophils % Seg Neuts % (Manual) Lymphocytes % (Manual) 3.0 L Seg Neutrophils # Seg Neutrophils # Man 10.1 H Lymphocytes # (Manual) 0.5 L Monocytes # (Manual) PT INR APTT Heparin Anti-Xa Level 0.14 L POC ABG pH POC ABG pCO2 POC ABG pO2 Sodium Potassium Chloride Carbon Dioxide 21 L BUN 38 H Creatinine 1.8 H D Glucose 131 H POC Glucose Calcium 7.6 L Phosphorus Lactate Dehydrogenase Total Creatine Kinase NT-Pro-B Natriuret Pep Albumin Kahry-7-Tehsailtz Dxaqu-7-Jnwxpezbl Beta Globulins PEP Interpretation Cholesterol LDL Cholesterol Direct 04/17/16 04/17/16 04/18/16 23:38 23:41 00:21 WBC RBC Hgb Hct MCV MCH MCHC RDW Plt Count Lymph % (Auto) [place] % (Auto) Lymph # [place] # Baso # Seg Neutrophils % Seg Neuts % (Manual) Lymphocytes % (Manual) Seg Neutrophils # Seg Neutrophils # Man Lymphocytes # (Manual) Monocytes # (Manual) PT INR APTT Heparin Anti-Xa Level POC ABG pH POC ABG pCO2 POC ABG pO2 Sodium Potassium Chloride Carbon Dioxide BUN Creatinine Glucose POC Glucose < 40 L < 40 L 223 H Calcium Phosphorus Lactate Dehydrogenase Total Creatine Kinase NT-Pro-B Natriuret Pep Albumin Nrmwv-2-Dnwfrrlno Qbkxc-7-Vofuyonsq Beta Globulins PEP Interpretation Cholesterol LDL Cholesterol Direct 04/18/16 04/18/16 04/18/16 05:01 05:20 05:20 WBC 17.6 H RBC 3.44 L Hgb 9.1 L Hct 27.8 L MCV 81 L MCH 26 L MCHC RDW 15.5 H Plt Count Lymph % (Auto) 2.7 L [place] % (Auto) 8.3 H Lymph # 0.5 L [place] # 1.5 H Baso # Seg Neutrophils % 88.4 H Seg Neuts % (Manual) Lymphocytes % (Manual) Seg Neutrophils # 15.6 H Seg Neutrophils # Man Lymphocytes # (Manual) Monocytes # (Manual) PT 17.4 H INR 1.43 H APTT Heparin Anti-Xa Level POC ABG pH 7.528 H POC ABG pCO2 27.9 L POC ABG pO2 Sodium Potassium Chloride Carbon Dioxide BUN Creatinine Glucose POC Glucose Calcium Phosphorus Lactate Dehydrogenase Total Creatine Kinase NT-Pro-B Natriuret Pep Albumin Zvloc-5-Tgkbixfta Hjkvy-1-Ivirlmskw Beta Globulins PEP Interpretation Cholesterol LDL Cholesterol Direct 04/18/16 04/18/16 04/18/16 05:20 05:31 06:50 WBC RBC Hgb Hct MCV MCH MCHC RDW Plt Count Lymph % (Auto) [place] % (Auto) Lymph # [place] # Baso # Seg Neutrophils % Seg Neuts % (Manual) Lymphocytes % (Manual) Seg Neutrophils # Seg Neutrophils # Man Lymphocytes # (Manual) Monocytes # (Manual) PT INR APTT Heparin Anti-Xa Level POC ABG pH POC ABG pCO2 POC ABG pO2 Sodium Potassium 3.4 L Chloride Carbon Dioxide 21 L BUN 22 H Creatinine Glucose POC Glucose 61 L 124 H Calcium 8.0 L Phosphorus Lactate Dehydrogenase Total Creatine Kinase NT-Pro-B Natriuret Pep Albumin Ujizh-8-Djortfnpo Mwcow-6-Zvzfzmvmc Beta Globulins PEP Interpretation Cholesterol LDL Cholesterol Direct 04/18/16 04/18/16 04/19/16 17:42 22:40 00:31 WBC RBC Hgb Hct MCV MCH MCHC RDW Plt Count Lymph % (Auto) [place] % (Auto) Lymph # [place] # Baso # Seg Neutrophils % Seg Neuts % (Manual) Lymphocytes % (Manual) Seg Neutrophils # Seg Neutrophils # Man Lymphocytes # (Manual) Monocytes # (Manual) PT INR APTT Heparin Anti-Xa Level < 0.10 L POC ABG pH POC ABG pCO2 POC ABG pO2 Sodium Potassium Chloride Carbon Dioxide BUN Creatinine Glucose POC Glucose 159 H 134 H Calcium Phosphorus Lactate Dehydrogenase Total Creatine Kinase NT-Pro-B Natriuret Pep Albumin Bzkiu-1-Qtvfbfyeh Wkxih-5-Mekccfdtr Beta Globulins PEP Interpretation Cholesterol LDL Cholesterol Direct 04/19/16 04/19/16 04/19/16 04:18 04:18 04:25 WBC 19.0 H RBC 3.58 L Hgb 9.3 L Hct 28.8 L MCV 80 L MCH 26 L MCHC RDW 15.5 H Plt Count Lymph % (Auto) 2.8 L [place] % (Auto) 7.4 H Lymph # 0.5 L [place] # 1.4 H Baso # Seg Neutrophils % 89.4 H Seg Neuts % (Manual) Lymphocytes % (Manual) Seg Neutrophils # 17.0 H Seg Neutrophils # Man Lymphocytes # (Manual) Monocytes # (Manual) PT INR APTT Heparin Anti-Xa Level POC ABG pH 7.527 H POC ABG pCO2 27.1 L POC ABG pO2 Sodium Potassium Chloride Carbon Dioxide BUN 22 H Creatinine Glucose 215 H POC Glucose Calcium 8.0 L Phosphorus Lactate Dehydrogenase Total Creatine Kinase NT-Pro-B Natriuret Pep Albumin Wcqie-4-Exlfhsqfc Dsdwj-3-Fzcvuahjy Beta Globulins PEP Interpretation Cholesterol LDL Cholesterol Direct 04/19/16 04/19/16 05:45 08:10 WBC RBC Hgb Hct MCV MCH MCHC RDW Plt Count Lymph % (Auto) [place] % (Auto) Lymph # [place] # Baso # Seg Neutrophils % Seg Neuts % (Manual) Lymphocytes % (Manual) Seg Neutrophils # Seg Neutrophils # Man Lymphocytes # (Manual) Monocytes # (Manual) PT 22.1 H INR 1.93 H APTT Heparin Anti-Xa Level 0.17 L POC ABG pH POC ABG pCO2 POC ABG pO2 Sodium Potassium Chloride Carbon Dioxide BUN Creatinine Glucose POC Glucose 196 H Calcium Phosphorus Lactate Dehydrogenase Total Creatine Kinase NT-Pro-B Natriuret Pep Albumin Akbnj-7-Jirputade Bjuhp-7-Arysfctek Beta Globulins PEP Interpretation Cholesterol LDL Cholesterol Direct
--- NOTE | 2016-04-19 09:33 | Progress Note ---
Assessment and Plan Assessment and plan: 1. Acute respiratory failure. Patient reintubated on 04/17/16. Continue mechanical ventilation per pulmonary. Chest x-ray appears clear. Patient will need tracheostomy. Surgery consulted. We will hold Coumadin in anticipation for tracheostomy. Heparin drip for now. 2. Acute CVA. CT scan revealed acute ischemic infarct in the right cerebellum. MRI reveals subacute infarct in the right cerebellar hemisphere with associated edema and mass effect as previously described. Patient also with multiple areas of acute infarct in the left occipital and frontal lobes that are most likely embolic. LIZZIE done- No thrombus but decreased flow. Cardiology recommends anticoagulation with Coumadin. 3. Hypotension. Resolved. Patient currently off pressors of Levophed. There appears to be no evidence for sepsis or septic shock with the exception of leukocytosis. Patient has been afebrile, blood cultures negative and Lactic acid level normalized. However, tracheal aspirate revealed gram-negative rods. Echocardiogram revealed EF of 50-55%. 4. Encephalopathy. EEG normal. Etiology likely secondary to CVA +/- hypertension. 5. Group B strep UTI-treated 6. Accelerated hypertension. Continue antihypertensive medications 7. CAD-stable, 8. Seizures-continue Keppra. EEG normal. 9. Type 2 diabetes mellitus. Glycemic control. 10. History of aortic dissection status post repair. 11. History of prosthetic aortic valve replacement. Echo with normal function on 08/2015. 12. DVT prophylaxis-on heparin drip. 13. GI prophylaxis-Pepcid 14. Oropharyngeal dysphagia. Patient failed swallow evaluation. Status post PEG placement on 04/17. The high probability of a clinically significant, sudden or life threatening deterioration of the [respiratory and neurological] system(s) required my full and direct attention, intervention and personal management. The aggregate critical care time was [31] minutes. This time is in addition to time spent performing reported procedures but includes the following: [x] Data Review and interpretation [x] Patient assessment and monitoring of vital signs [x] Documentation [x] Medication orders and management History Interval history: 60 years old -[place] male with nonobstructive CAD per recent CAD, hypertension, hyperlipidemia, bioprosthetic aortic valve replacement, chronic kidney disease, diabetes and seizure disorder who was initially admitted for metabolic encephalopathy with hypernatremia. Patient developed respiratory failure during this hospitalization on 03/27 and was intubated placed on mechanical ventilation. Patient was later extubated during his hospitalization but was reintubated on the evening of 04/16/16. Patient now remains intubated on mechanical ventilation. Patient is also status post PEG tube placement on . Patient currently on pressors of Levophed. Hospitalist Physical - Constitutional Vitals: Temp Pulse Resp BP Pulse Ox 99.0 F 114 H 25 H 152/99 100 04/19/16 03:53 04/19/16 09:00 04/19/16 09:00 04/19/16 09:00 04/19/16 09:00 General appearance: Present: no acute distress, other (intubated) - EENT Eyes: Present: PERRL, EOM intact ENT: hearing intact, clear oral mucosa, dentition normal - Neck Neck: Present: supple, normal ROM - Respiratory Respiratory effort: normal Respiratory: bilateral: diminished, rhonchi - Cardiovascular Rhythm: regular Heart Sounds: Present: S1 & S2. Absent: gallop, rub - Extremities Extremities: no ischemia, No edema, Full ROM - Abdominal General gastrointestinal: soft, non-tender, non-distended, normal bowel sounds - Integumentary Integumentary: Present: clear, warm, dry - Neurologic Neurologic: CNII-XII intact, moves all extremities Results - Labs CBC & Chem 7: 04/19/16 04:18 04/19/16 04:18 Labs: Laboratory Last Values WBC 19.0 K/mm3 (4.5-11.0) H 04/19/16 04:18 RBC 3.58 M/mm3 (3.65-5.03) L 04/19/16 04:18 Hgb 9.3 gm/dl (11.8-15.2) L 04/19/16 04:18 Hct 28.8 % (35.5-45.6) L 04/19/16 04:18 MCV 80 fl (84-94) L 04/19/16 04:18 MCH 26 pg (28-32) L 04/19/16 04:18 MCHC 32 % (32-34) 04/19/16 04:18 RDW 15.5 % (13.2-15.2) H 04/19/16 04:18 Plt Count 214 K/mm3 (140-440) 04/19/16 04:18 Lymph % (Auto) 2.8 % (13.4-35.0) L 04/19/16 04:18 [place] % (Auto) 7.4 % (0.0-7.3) H 04/19/16 04:18 Eos % (Auto) 0.1 % (0.0-4.3) 04/19/16 04:18 Baso % (Auto) 0.3 % (0.0-1.8) 04/19/16 04:18 Lymph # 0.5 K/mm3 (1.2-5.4) L 04/19/16 04:18 [place] # 1.4 K/mm3 (0.0-0.8) H 04/19/16 04:18 Eos # 0.0 K/mm3 (0.0-0.4) 04/19/16 04:18 Baso # 0.1 K/mm3 (0.0-0.1) 04/19/16 04:18 Add Manual Diff Complete 04/17/16 12:17 Total Counted 100 04/17/16 12:17 Seg Neutrophils % 89.4 % (40.0-70.0) H 04/19/16 04:18 Seg Neuts % (Manual) 61.0 % (40.0-70.0) 04/17/16 12:17 Band Neutrophils % 27.0 % 04/17/16 12:17 Lymphocytes % (Manual) 3.0 % (13.4-35.0) L 04/17/16 12:17 Reactive Lymphs % (Man) 0 % 04/17/16 12:17 Monocytes % (Manual) 4.0 % (0.0-7.3) 04/17/16 12:17 Eosinophils % (Manual) 0 % (0.0-4.3) 04/17/16 12:17 Basophils % (Manual) 0 % (0.0-1.8) 04/17/16 12:17 Metamyelocytes % 1.0 % 04/17/16 12:17 Myelocytes % 1.0 % 04/17/16 12:17 Promyelocytes % 3.0 % 04/17/16 12:17 Blast Cells % 0 % 04/17/16 12:17 Nucleated RBC % Not Reportable 04/17/16 12:17 Seg Neutrophils # 17.0 K/mm3 (1.8-7.7) H 04/19/16 04:18 Seg Neutrophils # Man 10.1 K/mm3 (1.8-7.7) H 04/17/16 12:17 Band Neutrophils # 4.5 K/mm3 04/17/16 12:17 Lymphocytes # (Manual) 0.5 K/mm3 (1.2-5.4) L 04/17/16 12:17 Abs React Lymphs (Man) 0.0 K/mm3 04/17/16 12:17 Monocytes # (Manual) 0.7 K/mm3 (0.0-0.8) 04/17/16 12:17 Eosinophils # (Manual) 0.0 K/mm3 (0.0-0.4) 04/17/16 12:17 Basophils # (Manual) 0.0 K/mm3 (0.0-0.1) 04/17/16 12:17 Metamyelocytes # 0.2 K/mm3 04/17/16 12:17 Myelocytes # 0.2 K/mm3 04/17/16 12:17 Promyelocytes # 0.5 K/mm3 04/17/16 12:17 Blast Cells # 0.0 K/mm3 04/17/16 12:17 WBC Morphology Not Reportable 04/17/16 12:17 Hypersegmented Neuts Not Reportable 04/17/16 12:17 Hyposegmented Neuts Not Reportable 04/17/16 12:17 Hypogranular Neuts Not Reportable 04/17/16 12:17 Smudge Cells Not Reportable 04/17/16 12:17 Toxic Granulation Not Reportable 04/17/16 12:17 Toxic Vacuolation Not Reportable 04/17/16 12:17 Dohle Bodies Not Reportable 04/17/16 12:17 Pelger-Huet Anomaly Not Reportable 04/17/16 12:17 Corina Rods Not Reportable 04/17/16 12:17 Platelet Estimate Appears normal 04/17/16 12:17 Clumped Platelets Not Reportable 04/17/16 12:17 Plt Clumps, EDTA Not Reportable 04/17/16 12:17 Large Platelets Not Reportable 04/17/16 12:17 Giant Platelets Not Reportable 04/17/16 12:17 Platelet Satelliting Not Reportable 04/17/16 12:17 Plt Morphology Comment Not Reportable 04/17/16 12:17 RBC Morphology Not Reportable 04/17/16 12:17 Dimorphic RBCs Not Reportable 04/17/16 12:17 Polychromasia Few 04/17/16 12:17 Hypochromasia Not Reportable 04/17/16 12:17 Poikilocytosis Not Reportable 04/17/16 12:17 Anisocytosis 1+ 04/17/16 12:17 Microcytosis Few 04/17/16 12:17 Macrocytosis Not Reportable 04/17/16 12:17 Spherocytes Not Reportable 04/17/16 12:17 Pappenheimer Bodies Not Reportable 04/17/16 12:17 Sickle Cells Not Reportable 04/17/16 12:17 Target Cells Not Reportable 04/17/16 12:17 Tear Drop Cells Not Reportable 04/17/16 12:17 Ovalocytes Not Reportable 04/17/16 12:17 Helmet Cells Not Reportable 04/17/16 12:17 Mcgrath-Alorton Bodies Not Reportable 04/17/16 12:17 Foley Rings Not Reportable 04/17/16 12:17 Johnson Cells Not Reportable 04/17/16 12:17 Bite Cells Not Reportable 04/17/16 12:17 Crenated Cell Not Reportable 04/17/16 12:17 Elliptocytes Not Reportable 04/17/16 12:17 Acanthocytes (Spur) Not Reportable 04/17/16 12:17 Rouleaux Not Reportable 04/17/16 12:17 Hemoglobin C Crystals Not Reportable 04/17/16 12:17 Schistocytes Not Reportable 04/17/16 12:17 Malaria parasites Not Reportable 04/17/16 12:17 Gideon Bodies Not Reportable 04/17/16 12:17 Hem Pathologist Commnt No 04/17/16 12:17 PT 22.1 Sec. (12.2-14.9) H 04/19/16 08:10 INR 1.93 (0.87-1.13) H 04/19/16 08:10 APTT 42.1 Sec. (24.2-36.6) H 04/04/16 09:55 Heparin Anti-Xa Level 0.17 U.I./ml (0.3-0.7) L 04/19/16 08:10 POC ABG pH 7.527 (7.35-7.45) H 04/19/16 04:25 POC ABG pCO2 27.1 (35-45) L 04/19/16 04:25 POC ABG pO2 88 (80-105) 04/19/16 04:25 POC ABG HCO3 22.5 04/19/16 04:25 POC ABG Total CO2 23 04/19/16 04:25 POC ABG O2 Sat 98 04/19/16 04:25 POC ABG Base Excess 0 04/19/16 04:25 VBG pH 7.418 (7.320-7.420) 03/24/16 14:00 FiO2 50 % 04/19/16 04:25 Sodium 139 mmol/L (137-145) 04/19/16 04:18 Potassium 3.8 mmol/L (3.6-5.0) 04/19/16 04:18 Chloride 102.2 mmol/L (98-107) 04/19/16 04:18 Carbon Dioxide 22 mmol/L (22-30) 04/19/16 04:18 Anion Gap 19 mmol/L 04/19/16 04:18 BUN 22 mg/dL (9-20) H 04/19/16 04:18 Creatinine 1.3 mg/dL (0.8-1.5) 04/19/16 04:18 Estimated GFR > 60 ml/min 04/19/16 04:18 BUN/Creatinine Ratio 16.92 % 04/19/16 04:18 Glucose 215 mg/dL (75-100) H 04/19/16 04:18 POC Glucose 196 (70-105) H 04/19/16 05:45 Hemoglobin A1c 9.6 % (4-6) H 03/24/16 14:00 Lactic Acid 1.6 mmol/L (0.7-2.0) 04/17/16 12:17 Calcium 8.0 mg/dL (8.4-10.2) L 04/19/16 04:18 Phosphorus 2.3 mg/dL (2.5-4.5) L D 03/30/16 04:00 Magnesium 1.9 mg/dL (1.7-2.3) 03/30/16 04:00 Total Bilirubin 0.3 mg/dL (0.1-1.2) 03/24/16 14:00 AST 24 units/L (5-40) 03/24/16 14:00 ALT 38 units/L (7-56) 03/24/16 14:00 Alkaline Phosphatase 77 units/L (35-129) 03/24/16 14:00 Lactate Dehydrogenase 460 units/L (91-180) H 03/25/16 05:56 Total Creatine Kinase 356 units/L (55-170) H 03/28/16 13:29 Troponin T < 0.010 ng/mL (0.00-0.029) 03/28/16 13:29 NT-Pro-B Natriuret Pep 897.9 pg/mL (0-900) 04/03/16 04:10 Serum Total Protein 7.1 g/dL (6.1-8.1) 03/25/16 13:00 Total Protein 7.4 g/dL (6.3-8.2) 03/24/16 14:00 Albumin See scanned report 03/31/16 12:20 Albumin/Globulin Ratio 0.9 % 03/24/16 14:00 Yxdon-2-Tbbqigxlu See scanned report 03/31/16 12:20 Faehv-8-Xsiazxrbw See scanned report 03/31/16 12:20 Beta Globulins See scanned report 03/31/16 12:20 Utip-0-Yxpbjhrupsbcc 2.46 mg/L (<=2.51) 03/25/16 13:00 Gamma Globulins See scanned report 03/31/16 12:20 Abnorm Protein Band 1 see below (()) 03/25/16 13:00 PEP Interpretation See scanned report 03/31/16 12:20 Triglycerides 88 mg/dL (2-149) 03/24/16 17:58 Cholesterol 221 mg/dL (50-199) H 03/24/16 17:58 LDL Cholesterol Direct 146 mg/dL (50-130) H 03/24/16 17:58 HDL Cholesterol 58 mg/dL (40-59) 03/24/16 17:58 Cholesterol/HDL Ratio 3.81 % 03/24/16 17:58 Urine Color Yellow (Yellow) 03/24/16 14:27 Urine Turbidity Clear (Clear) 03/24/16 14:27 Urine pH 5.0 (5.0-7.0) 03/24/16 14:27 Ur Specific [place] 1.017 (1.003-1.030) 03/24/16 14:27 Urine Protein <15 mg/dl mg/dL (Negative) 03/24/16 14:27 Urine Glucose (UA) >=500 mg/dL (Negative) 03/24/16 14:27 Urine Ketones Neg mg/dL (Negative) 03/24/16 14:27 Urine Blood Sm (Negative) 03/24/16 14:27 Urine Nitrite Neg (Negative) 03/24/16 14:27 Urine Bilirubin Neg (Negative) 03/24/16 14:27 Urine Urobilinogen < 2.0 mg/dL (<2.0) 03/24/16 14:27 Ur Leukocyte Esterase Neg (Negative) 03/24/16 14:27 Urine WBC (Auto) 2.0 /HPF (0.0-6.0) 03/24/16 14:27 Urine RBC (Auto) < 1.0 /HPF (0.0-6.0) 03/24/16 14:27 U Epithel Cells (Auto) 4.0 /HPF (0-13.0) 03/24/16 14:27 Hyaline Casts 1 /LPF 03/24/16 14:27 Urine Mucus Few /HPF 03/24/16 14:27 Ur Random Creatinine See scanned report 03/31/16 12:20 U Random Total Protein See scanned report 03/31/16 12:20 Protein/Creatinin Ratio See scanned report 03/31/16 12:20 U Abnormal Prot Band 1 See scanned report 03/31/16 12:20 U Abnormal Prot Band 2 See scanned report 03/31/16 12:20 U Abnormal Prot Band 3 See scanned report 03/31/16 12:20 Ketones 1.0 mg/dL (0.2-2.8) 03/24/16 14:00
--- NOTE | 2016-04-19 09:44 | XRay Report ---
AP CHEST: HISTORY: Follow-up respiratory failure. FINDINGS: The endotracheal tube is unchanged since yesterday's exam. Given differences in the level of inspiration, no change can be appreciated in cardiomegaly and pulmonary venous congestion. The lungs are clear. No consolidation, pleural effusion or pneumothorax. IMPRESSION: No significant change.
[2016-04-19] MEDS: BABY ASPIRIN PO SCH (10:50)
[2016-04-19] MEDS: PEPCID PO SCH ×2 (10:50→21:05)
[2016-04-19] MEDS: KEPPRA PO SCH ×2 (10:53→21:04)
[2016-04-19] MEDS: CORDARONE PO SCH (11:50)
--- NOTE | 2016-04-19 13:39 | Progress Note ---
Assessment and Plan Respiratory failure Recommend: Would repeat CT head Unfortunately, not much more to do as pt already for full anticoagulation. Complete PEg when stable, keep on Heparin until just before time for PEG and restart Heparin when ok with GI Prognosis is poor. Call with questions. Subjective Date of service: 04/19/16 Principal diagnosis: CVA Interval history: Pt again seen and examined. Apparently had respiratory on 04/16. ATSP for new stroke. On my arrival pt is intubated, not sedated, responds minimally to noxious stimulation. Objective - Vital Sign Vital Signs - 12hr 04/19/16 04/19/16 04/19/16 02:00 02:30 02:48 Temperature Pulse Rate 102 H 88 Pulse Rate [ 90 Anterior Bilateral Throughout] Pulse Rate [ From Monitor] Respiratory 27 H 18 Rate Respiratory 23 Rate [Anterior Bilateral Throughout] Blood Pressure 148/86 108/67 O2 Sat by Pulse 100 100 Oximetry 04/19/16 04/19/16 04/19/16 03:00 03:02 03:30 Temperature Pulse Rate 93 H 100 H Pulse Rate [ 94 H Anterior Bilateral Throughout] Pulse Rate [ From Monitor] Respiratory 16 24 Rate Respiratory 23 Rate [Anterior Bilateral Throughout] Blood Pressure 115/70 146/86 O2 Sat by Pulse 100 100 Oximetry 04/19/16 04/19/16 04/19/16 03:48 03:53 04:00 Temperature 99.0 F Pulse Rate 103 H 108 H Pulse Rate [ Anterior Bilateral Throughout] Pulse Rate [ 102 H From Monitor] Respiratory 13 26 H Rate Respiratory Rate [Anterior Bilateral Throughout] Blood Pressure 144/87 156/88 O2 Sat by Pulse 100 100 Oximetry 04/19/16 04/19/16 04/19/16 04:11 04:30 05:00 Temperature Pulse Rate 104 H 106 H 107 H Pulse Rate [ Anterior Bilateral Throughout] Pulse Rate [ From Monitor] Respiratory 19 22 Rate Respiratory Rate [Anterior Bilateral Throughout] Blood Pressure 156/88 141/85 144/88 O2 Sat by Pulse 100 100 100 Oximetry 04/19/16 04/19/16 04/19/16 05:30 05:32 05:54 Temperature Pulse Rate 106 H 107 H 112 H Pulse Rate [ Anterior Bilateral Throughout] Pulse Rate [ From Monitor] Respiratory 19 23 25 H Rate Respiratory Rate [Anterior Bilateral Throughout] Blood Pressure 125/75 125/75 131/78 O2 Sat by Pulse 100 100 100 Oximetry 04/19/16 04/19/16 04/19/16 06:00 06:30 07:00 Temperature Pulse Rate 112 H 112 H 119 H Pulse Rate [ Anterior Bilateral Throughout] Pulse Rate [ From Monitor] Respiratory 17 25 H 30 H Rate Respiratory Rate [Anterior Bilateral Throughout] Blood Pressure 131/78 140/83 174/94 O2 Sat by Pulse 100 100 100 Oximetry 04/19/16 04/19/16 04/19/16 07:30 07:44 07:49 Temperature Pulse Rate 116 H 117 H 117 H Pulse Rate [ Anterior Bilateral Throughout] Pulse Rate [ From Monitor] Respiratory 26 H 29 H Rate Respiratory Rate [Anterior Bilateral Throughout] Blood Pressure 163/99 163/99 158/95 O2 Sat by Pulse 100 100 100 Oximetry 04/19/16 04/19/16 04/19/16 07:55 08:00 08:03 Temperature Pulse Rate 111 H Pulse Rate [ 113 H 111 H Anterior Bilateral Throughout] Pulse Rate [ From Monitor] Respiratory 14 Rate Respiratory 29 H 14 Rate [Anterior Bilateral Throughout] Blood Pressure 133/80 O2 Sat by Pulse 100 Oximetry 04/19/16 04/19/16 04/19/16 08:30 09:00 11:02 Temperature Pulse Rate 113 H 114 H 109 H Pulse Rate [ Anterior Bilateral Throughout] Pulse Rate [ From Monitor] Respiratory 22 25 H Rate Respiratory Rate [Anterior Bilateral Throughout] Blood Pressure 151/94 152/99 134/95 O2 Sat by Pulse 100 100 95 Oximetry 04/19/16 04/19/16 13:13 13:22 Temperature Pulse Rate Pulse Rate [ 116 H 114 H Anterior Bilateral Throughout] Pulse Rate [ From Monitor] Respiratory Rate Respiratory 25 H 18 Rate [Anterior Bilateral Throughout] Blood Pressure O2 Sat by Pulse Oximetry - General Apperance Constitutional: chronically ill - EENT EENT: PERRL - Cardiovascular Cardiovascular: normal S1 Extremities: no peripheral edema bilat - Neurologic Detailed motor examination: other (generalized weakness) Reflexes: 0: ankle, bicep, knee, tricep - Laboratory Findings CBC and BMP: 04/19/16 04:18 04/19/16 04:18 Abnormal Lab Findings: Abnormal Labs 03/24/16 03/24/16 03/24/16 17:58 20:25 23:23 WBC RBC Hgb Hct MCV MCH MCHC RDW Plt Count Lymph % (Auto) [place] % (Auto) Lymph # [place] # Baso # Seg Neutrophils % Seg Neuts % (Manual) Lymphocytes % (Manual) Seg Neutrophils # Seg Neutrophils # Man Lymphocytes # (Manual) Monocytes # (Manual) PT INR APTT Heparin Anti-Xa Level POC ABG pH POC ABG pCO2 POC ABG pO2 Sodium 169 H* Potassium 3.5 L Chloride 130.3 H Carbon Dioxide BUN 28 H Creatinine 1.8 H Glucose POC Glucose 112 H Calcium Phosphorus Lactate Dehydrogenase Total Creatine Kinase NT-Pro-B Natriuret Pep Albumin Jtdwe-3-Vhbwlaeas Rkeno-6-Rnpuupcgd Beta Globulins PEP Interpretation Cholesterol 221 H LDL Cholesterol Direct 146 H 03/25/16 03/25/16 03/25/16 05:56 05:56 05:56 WBC 21.3 H RBC 6.32 H Hgb 16.7 H Hct 52.7 H MCV 83 L MCH 27 L MCHC RDW Plt Count Lymph % (Auto) [place] % (Auto) Lymph # [place] # Baso # Seg Neutrophils % Seg Neuts % (Manual) 91.0 H Lymphocytes % (Manual) 4.0 L Seg Neutrophils # Seg Neutrophils # Man 19.4 H Lymphocytes # (Manual) 0.9 L Monocytes # (Manual) 0.9 H PT INR APTT Heparin Anti-Xa Level POC ABG pH POC ABG pCO2 POC ABG pO2 Sodium 172 H* Potassium 3.5 L Chloride 130.4 H Carbon Dioxide BUN 29 H Creatinine 1.8 H Glucose 187 H POC Glucose Calcium Phosphorus Lactate Dehydrogenase 460 H Total Creatine Kinase NT-Pro-B Natriuret Pep Albumin Bjwqd-7-Fogpepepp Utszr-4-Tbthckdke Beta Globulins PEP Interpretation Cholesterol LDL Cholesterol Direct 03/25/16 03/25/16 03/25/16 07:55 12:19 13:00 WBC RBC Hgb Hct MCV MCH MCHC RDW Plt Count Lymph % (Auto) [place] % (Auto) Lymph # [place] # Baso # Seg Neutrophils % Seg Neuts % (Manual) Lymphocytes % (Manual) Seg Neutrophils # Seg Neutrophils # Man Lymphocytes # (Manual) Monocytes # (Manual) PT INR APTT Heparin Anti-Xa Level POC ABG pH POC ABG pCO2 POC ABG pO2 Sodium Potassium Chloride Carbon Dioxide BUN Creatinine Glucose POC Glucose 231 H 314 H Calcium Phosphorus Lactate Dehydrogenase Total Creatine Kinase NT-Pro-B Natriuret Pep Albumin 3.4 L Syrhb-6-Uroshnmss 0.4 H Qjtac-0-Yknmlefnw 1.1 H Beta Globulins 0.6 H PEP Interpretation see below H Cholesterol LDL Cholesterol Direct 03/25/16 03/25/16 03/26/16 16:41 22:45 08:32 WBC RBC Hgb Hct MCV MCH MCHC RDW Plt Count Lymph % (Auto) [place] % (Auto) Lymph # [place] # Baso # Seg Neutrophils % Seg Neuts % (Manual) Lymphocytes % (Manual) Seg Neutrophils # Seg Neutrophils # Man Lymphocytes # (Manual) Monocytes # (Manual) PT INR APTT Heparin Anti-Xa Level POC ABG pH POC ABG pCO2 POC ABG pO2 Sodium Potassium Chloride Carbon Dioxide BUN Creatinine Glucose POC Glucose 444 H 326 H 360 H Calcium Phosphorus Lactate Dehydrogenase Total Creatine Kinase NT-Pro-B Natriuret Pep Albumin Xymrw-6-Qhsbihimt Snqpp-9-Oxqvypvqg Beta Globulins PEP Interpretation Cholesterol LDL Cholesterol Direct 03/26/16 03/26/16 03/26/16 12:38 15:33 15:47 WBC RBC Hgb Hct MCV MCH MCHC RDW Plt Count Lymph % (Auto) [place] % (Auto) Lymph # [place] # Baso # Seg Neutrophils % Seg Neuts % (Manual) Lymphocytes % (Manual) Seg Neutrophils # Seg Neutrophils # Man Lymphocytes # (Manual) Monocytes # (Manual) PT INR APTT Heparin Anti-Xa Level POC ABG pH 7.511 H POC ABG pCO2 26.5 L POC ABG pO2 70 L Sodium Potassium Chloride Carbon Dioxide BUN Creatinine Glucose POC Glucose 280 H 174 H Calcium Phosphorus Lactate Dehydrogenase Total Creatine Kinase NT-Pro-B Natriuret Pep Albumin Zyxzj-2-Bwvbathuo Ulmed-0-Kkfasicxq Beta Globulins PEP Interpretation Cholesterol LDL Cholesterol Direct 03/26/16 03/26/16 03/26/16 16:47 16:47 18:51 WBC 14.0 H RBC 5.17 H Hgb Hct MCV MCH 26 L MCHC 31 L RDW Plt Count 139 L Lymph % (Auto) [place] % (Auto) Lymph # [place] # Baso # Seg Neutrophils % Seg Neuts % (Manual) Lymphocytes % (Manual) Seg Neutrophils # Seg Neutrophils # Man Lymphocytes # (Manual) Monocytes # (Manual) PT INR APTT Heparin Anti-Xa Level POC ABG pH POC ABG pCO2 33.9 L POC ABG pO2 150 H Sodium 164 H* Potassium 3.4 L Chloride 128.5 H Carbon Dioxide BUN 30 H Creatinine 2.2 H Glucose 121 H POC Glucose Calcium 8.1 L Phosphorus Lactate Dehydrogenase Total Creatine Kinase NT-Pro-B Natriuret Pep Albumin Ehmyw-7-Rkfisvtax Mdtiv-7-Luofyjxvn Beta Globulins PEP Interpretation Cholesterol LDL Cholesterol Direct 03/27/16 03/27/16 03/27/16 02:19 05:47 06:02 WBC RBC Hgb Hct MCV MCH MCHC RDW Plt Count Lymph % (Auto) [place] % (Auto) Lymph # [place] # Baso # Seg Neutrophils % Seg Neuts % (Manual) Lymphocytes % (Manual) Seg Neutrophils # Seg Neutrophils # Man Lymphocytes # (Manual) Monocytes # (Manual) PT INR APTT Heparin Anti-Xa Level POC ABG pH POC ABG pCO2 27.3 L 30.3 L POC ABG pO2 50 L 112 H Sodium 158 H Potassium Chloride 126.7 H Carbon Dioxide 20 L BUN 25 H Creatinine 1.7 H Glucose POC Glucose Calcium 7.0 L Phosphorus Lactate Dehydrogenase Total Creatine Kinase NT-Pro-B Natriuret Pep Albumin Sgmzm-6-Rwuqjehys Raifk-8-Otqrhwvtx Beta Globulins PEP Interpretation Cholesterol LDL Cholesterol Direct 03/27/16 03/27/16 03/27/16 07:51 09:20 11:45 WBC 14.2 H RBC Hgb Hct MCV 83 L MCH 27 L MCHC RDW Plt Count 113 L Lymph % (Auto) [place] % (Auto) Lymph # [place] # Baso # Seg Neutrophils % Seg Neuts % (Manual) Lymphocytes % (Manual) Seg Neutrophils # Seg Neutrophils # Man Lymphocytes # (Manual) Monocytes # (Manual) PT INR APTT Heparin Anti-Xa Level POC ABG pH POC ABG pCO2 POC ABG pO2 Sodium Potassium Chloride Carbon Dioxide BUN Creatinine Glucose POC Glucose 124 H 241 H Calcium Phosphorus Lactate Dehydrogenase Total Creatine Kinase NT-Pro-B Natriuret Pep Albumin Wueza-1-Tznrmiieg Tlxsx-6-Fdxaytuek Beta Globulins PEP Interpretation Cholesterol LDL Cholesterol Direct 03/27/16 03/27/16 03/28/16 16:39 22:03 03:29 WBC RBC Hgb Hct MCV MCH MCHC RDW Plt Count Lymph % (Auto) [place] % (Auto) Lymph # [place] # Baso # Seg Neutrophils % Seg Neuts % (Manual) Lymphocytes % (Manual) Seg Neutrophils # Seg Neutrophils # Man Lymphocytes # (Manual) Monocytes # (Manual) PT INR APTT Heparin Anti-Xa Level POC ABG pH POC ABG pCO2 POC ABG pO2 Sodium Potassium Chloride Carbon Dioxide BUN Creatinine Glucose POC Glucose 266 H 167 H 241 H Calcium Phosphorus Lactate Dehydrogenase Total Creatine Kinase NT-Pro-B Natriuret Pep Albumin Pftxi-4-Qmnueyvjh Vpoly-4-Fklqrxoyk Beta Globulins PEP Interpretation Cholesterol LDL Cholesterol Direct 03/28/16 03/28/16 03/28/16 05:00 05:00 05:00 WBC RBC Hgb Hct MCV 83 L MCH 27 L MCHC RDW Plt Count 106 L Lymph % (Auto) [place] % (Auto) 10.1 H Lymph # [place] # 1.0 H Baso # Seg Neutrophils % 75.1 H Seg Neuts % (Manual) Lymphocytes % (Manual) Seg Neutrophils # Seg Neutrophils # Man Lymphocytes # (Manual) Monocytes # (Manual) PT INR APTT Heparin Anti-Xa Level POC ABG pH POC ABG pCO2 POC ABG pO2 Sodium 147 H D Potassium 3.1 L D Chloride 112.3 H Carbon Dioxide 21 L BUN Creatinine Glucose 208 H POC Glucose Calcium 7.0 L Phosphorus 2.2 L Lactate Dehydrogenase Total Creatine Kinase NT-Pro-B Natriuret Pep Albumin Mwacg-0-Fqxeuxhek Bltzz-6-Qyuwnsdyx Beta Globulins PEP Interpretation Cholesterol LDL Cholesterol Direct 03/28/16 03/28/16 03/28/16 05:14 08:41 10:56 WBC RBC Hgb Hct MCV MCH MCHC RDW Plt Count Lymph % (Auto) [place] % (Auto) Lymph # [place] # Baso # Seg Neutrophils % Seg Neuts % (Manual) Lymphocytes % (Manual) Seg Neutrophils # Seg Neutrophils # Man Lymphocytes # (Manual) Monocytes # (Manual) PT INR APTT Heparin Anti-Xa Level POC ABG pH 7.457 H POC ABG pCO2 29.7 L 27.7 L POC ABG pO2 Sodium Potassium Chloride Carbon Dioxide BUN Creatinine Glucose POC Glucose 228 H Calcium Phosphorus Lactate Dehydrogenase Total Creatine Kinase NT-Pro-B Natriuret Pep Albumin Fceql-5-Wuswbzqzx Serri-9-Htzkjjtsz Beta Globulins PEP Interpretation Cholesterol LDL Cholesterol Direct 03/28/16 03/28/16 03/28/16 11:37 13:29 16:22 WBC RBC Hgb Hct MCV MCH MCHC RDW Plt Count Lymph % (Auto) [place] % (Auto) Lymph # [place] # Baso # Seg Neutrophils % Seg Neuts % (Manual) Lymphocytes % (Manual) Seg Neutrophils # Seg Neutrophils # Man Lymphocytes # (Manual) Monocytes # (Manual) PT INR APTT Heparin Anti-Xa Level POC ABG pH POC ABG pCO2 POC ABG pO2 Sodium Potassium Chloride Carbon Dioxide BUN Creatinine Glucose POC Glucose 226 H 200 H Calcium Phosphorus Lactate Dehydrogenase Total Creatine Kinase 356 H NT-Pro-B Natriuret Pep Albumin Shsyp-7-Edhmqaryk Xmxev-9-Updwvplaa Beta Globulins PEP Interpretation Cholesterol LDL Cholesterol Direct 03/28/16 03/29/16 03/29/16 21:48 04:50 04:50 WBC RBC Hgb 11.5 L Hct 35.3 L MCV 81 L MCH 26 L MCHC RDW Plt Count 97 L Lymph % (Auto) [place] % (Auto) 11.7 H Lymph # [place] # 1.1 H Baso # Seg Neutrophils % Seg Neuts % (Manual) Lymphocytes % (Manual) Seg Neutrophils # Seg Neutrophils # Man Lymphocytes # (Manual) Monocytes # (Manual) PT INR APTT Heparin Anti-Xa Level POC ABG pH POC ABG pCO2 POC ABG pO2 Sodium 136 L D Potassium 3.3 L Chloride Carbon Dioxide 20 L BUN Creatinine Glucose 386 H POC Glucose 188 H Calcium 6.8 L Phosphorus 1.6 L D Lactate Dehydrogenase Total Creatine Kinase NT-Pro-B Natriuret Pep Albumin Piapp-5-Okkwazhpy Guckt-9-Lzhmuxzep Beta Globulins PEP Interpretation Cholesterol LDL Cholesterol Direct 03/29/16 03/29/16 03/29/16 08:10 11:12 16:09 WBC RBC Hgb Hct MCV MCH MCHC RDW Plt Count Lymph % (Auto) [place] % (Auto) Lymph # [place] # Baso # Seg Neutrophils % Seg Neuts % (Manual) Lymphocytes % (Manual) Seg Neutrophils # Seg Neutrophils # Man Lymphocytes # (Manual) Monocytes # (Manual) PT INR APTT Heparin Anti-Xa Level POC ABG pH POC ABG pCO2 POC ABG pO2 Sodium Potassium Chloride Carbon Dioxide BUN Creatinine Glucose POC Glucose 230 H 180 H 46 L Calcium Phosphorus Lactate Dehydrogenase Total Creatine Kinase NT-Pro-B Natriuret Pep Albumin Vhveg-9-Mlilwsabh Hnyez-4-Xmgxgjhdz Beta Globulins PEP Interpretation Cholesterol LDL Cholesterol Direct 03/29/16 03/29/16 03/30/16 16:12 18:15 02:53 WBC RBC Hgb Hct MCV MCH MCHC RDW Plt Count Lymph % (Auto) [place] % (Auto) Lymph # [place] # Baso # Seg Neutrophils % Seg Neuts % (Manual) Lymphocytes % (Manual) Seg Neutrophils # Seg Neutrophils # Man Lymphocytes # (Manual) Monocytes # (Manual) PT INR APTT Heparin Anti-Xa Level POC ABG pH POC ABG pCO2 POC ABG pO2 Sodium Potassium Chloride Carbon Dioxide BUN Creatinine Glucose POC Glucose 52 L 118 H 130 H Calcium Phosphorus Lactate Dehydrogenase Total Creatine Kinase NT-Pro-B Natriuret Pep Albumin Jutfu-5-Bycxkazga Oqrxq-9-Ksycudchf Beta Globulins PEP Interpretation Cholesterol LDL Cholesterol Direct 03/30/16 03/30/16 03/30/16 04:00 04:00 05:29 WBC RBC Hgb Hct MCV 81 L MCH 26 L MCHC RDW Plt Count 116 L Lymph % (Auto) 10.8 L [place] % (Auto) 13.1 H Lymph # 1.0 L [place] # 1.3 H Baso # Seg Neutrophils % 74.2 H Seg Neuts % (Manual) Lymphocytes % (Manual) Seg Neutrophils # Seg Neutrophils # Man Lymphocytes # (Manual) Monocytes # (Manual) PT INR APTT Heparin Anti-Xa Level POC ABG pH 7.522 H POC ABG pCO2 22.7 L POC ABG pO2 137 H Sodium 147 H D Potassium Chloride 115.5 H Carbon Dioxide 20 L BUN Creatinine Glucose 116 H POC Glucose Calcium 7.6 L Phosphorus 2.3 L D Lactate Dehydrogenase Total Creatine Kinase NT-Pro-B Natriuret Pep Albumin Dbiqk-5-Njykaohig Rslqu-2-Mrjohhqig Beta Globulins PEP Interpretation Cholesterol LDL Cholesterol Direct 03/30/16 03/30/16 03/30/16 05:47 08:05 08:59 WBC RBC Hgb Hct MCV MCH MCHC RDW Plt Count Lymph % (Auto) [place] % (Auto) Lymph # [place] # Baso # Seg Neutrophils % Seg Neuts % (Manual) Lymphocytes % (Manual) Seg Neutrophils # Seg Neutrophils # Man Lymphocytes # (Manual) Monocytes # (Manual) PT INR APTT Heparin Anti-Xa Level POC ABG pH POC ABG pCO2 26.2 L POC ABG pO2 115 H Sodium Potassium Chloride Carbon Dioxide BUN Creatinine Glucose POC Glucose 138 H 171 H Calcium Phosphorus Lactate Dehydrogenase Total Creatine Kinase NT-Pro-B Natriuret Pep Albumin Gzqmy-4-Dwsgmjqua Ppwdh-3-Befscrnrc Beta Globulins PEP Interpretation Cholesterol LDL Cholesterol Direct 03/30/16 03/30/16 03/30/16 12:11 12:11 16:39 WBC RBC Hgb Hct MCV MCH MCHC RDW Plt Count Lymph % (Auto) [place] % (Auto) Lymph # [place] # Baso # Seg Neutrophils % Seg Neuts % (Manual) Lymphocytes % (Manual) Seg Neutrophils # Seg Neutrophils # Man Lymphocytes # (Manual) Monocytes # (Manual) PT INR APTT Heparin Anti-Xa Level POC ABG pH 7.476 H POC ABG pCO2 29.0 L POC ABG pO2 Sodium Potassium Chloride Carbon Dioxide BUN Creatinine Glucose POC Glucose 142 H 59 L Calcium Phosphorus Lactate Dehydrogenase Total Creatine Kinase NT-Pro-B Natriuret Pep Albumin Fyuva-9-Tijbkiuxc Mkjcc-8-Czkpnuple Beta Globulins PEP Interpretation Cholesterol LDL Cholesterol Direct 03/30/16 03/30/16 03/31/16 18:41 21:59 05:02 WBC RBC Hgb Hct MCV MCH MCHC RDW Plt Count Lymph % (Auto) [place] % (Auto) Lymph # [place] # Baso # Seg Neutrophils % Seg Neuts % (Manual) Lymphocytes % (Manual) Seg Neutrophils # Seg Neutrophils # Man Lymphocytes # (Manual) Monocytes # (Manual) PT INR APTT Heparin Anti-Xa Level POC ABG pH 7.519 H POC ABG pCO2 21.8 L POC ABG pO2 142 H Sodium Potassium Chloride Carbon Dioxide BUN Creatinine Glucose POC Glucose 145 H 154 H Calcium Phosphorus Lactate Dehydrogenase Total Creatine Kinase NT-Pro-B Natriuret Pep Albumin Sgtut-6-Etqurxxkj Pbnxt-1-Oqgslxnyk Beta Globulins PEP Interpretation Cholesterol LDL Cholesterol Direct 03/31/16 03/31/16 03/31/16 05:15 05:15 05:15 WBC 13.4 H RBC 5.21 H Hgb Hct MCV 81 L MCH 26 L MCHC RDW Plt Count Lymph % (Auto) 9.5 L [place] % (Auto) 14.0 H Lymph # [place] # 1.9 H Baso # Seg Neutrophils % 75.0 H Seg Neuts % (Manual) Lymphocytes % (Manual) Seg Neutrophils # 10.1 H Seg Neutrophils # Man Lymphocytes # (Manual) Monocytes # (Manual) PT INR APTT Heparin Anti-Xa Level POC ABG pH POC ABG pCO2 POC ABG pO2 Sodium Potassium Chloride 108.5 H Carbon Dioxide 19 L BUN Creatinine Glucose 188 H POC Glucose Calcium Phosphorus Lactate Dehydrogenase Total Creatine Kinase NT-Pro-B Natriuret Pep 1089 H Albumin Ubzrn-9-Yyjkqewgw Oiwmm-7-Iyckfnbji Beta Globulins PEP Interpretation Cholesterol LDL Cholesterol Direct 03/31/16 03/31/16 03/31/16 07:23 11:12 15:20 WBC RBC Hgb Hct MCV MCH MCHC RDW Plt Count Lymph % (Auto) [place] % (Auto) Lymph # [place] # Baso # Seg Neutrophils % Seg Neuts % (Manual) Lymphocytes % (Manual) Seg Neutrophils # Seg Neutrophils # Man Lymphocytes # (Manual) Monocytes # (Manual) PT INR APTT Heparin Anti-Xa Level POC ABG pH POC ABG pCO2 POC ABG pO2 Sodium Potassium Chloride Carbon Dioxide BUN Creatinine Glucose POC Glucose 233 H 228 H 208 H Calcium Phosphorus Lactate Dehydrogenase Total Creatine Kinase NT-Pro-B Natriuret Pep Albumin Pubsp-7-Clnkpuxxp Sndha-7-Btaypel[place] Beta Globulins PEP Interpretation Cholesterol LDL Cholesterol Direct 03/31/16 04/01/16 04/01/16 21:27 04:41 05:35 WBC 12.1 H RBC Hgb Hct MCV 81 L MCH 26 L MCHC RDW Plt Count Lymph % (Auto) 8.5 L [place] % (Auto) 14.0 H Lymph # 1.0 L [place] # 1.7 H Baso # Seg Neutrophils % 76.2 H Seg Neuts % (Manual) Lymphocytes % (Manual) Seg Neutrophils # 9.2 H Seg Neutrophils # Man Lymphocytes # (Manual) Monocytes # (Manual) PT INR APTT Heparin Anti-Xa Level POC ABG pH 7.455 H POC ABG pCO2 31.0 L POC ABG pO2 Sodium Potassium Chloride Carbon Dioxide BUN Creatinine Glucose POC Glucose 162 H Calcium Phosphorus Lactate Dehydrogenase Total Creatine Kinase NT-Pro-B Natriuret Pep Albumin Xpfpn-2-Dpeedtkob Exrkr-2-Jdlmalyok Beta Globulins PEP Interpretation Cholesterol LDL Cholesterol Direct 04/01/16 04/01/16 04/01/16 05:35 08:44 12:49 WBC RBC Hgb Hct MCV MCH MCHC RDW Plt Count Lymph % (Auto) [place] % (Auto) Lymph # [place] # Baso # Seg Neutrophils % Seg Neuts % (Manual) Lymphocytes % (Manual) Seg Neutrophils # Seg Neutrophils # Man Lymphocytes # (Manual) Monocytes # (Manual) PT INR APTT Heparin Anti-Xa Level POC ABG pH POC ABG pCO2 POC ABG pO2 Sodium Potassium Chloride Carbon Dioxide BUN Creatinine Glucose 256 H POC Glucose 257 H 279 H Calcium 8.0 L Phosphorus Lactate Dehydrogenase Total Creatine Kinase NT-Pro-B Natriuret Pep 1205 H Albumin Wylyr-5-Gzyzrktla Juhil-0-Jcdanmwle Beta Globulins PEP Interpretation Cholesterol LDL Cholesterol Direct 04/01/16 04/02/16 04/02/16 18:12 00:42 04:17 WBC RBC Hgb Hct MCV MCH MCHC RDW Plt Count Lymph % (Auto) [place] % (Auto) Lymph # [place] # Baso # Seg Neutrophils % Seg Neuts % (Manual) Lymphocytes % (Manual) Seg Neutrophils # Seg Neutrophils # Man Lymphocytes # (Manual) Monocytes # (Manual) PT INR APTT Heparin Anti-Xa Level POC ABG pH 7.582 H POC ABG pCO2 26.8 L POC ABG pO2 Sodium Potassium Chloride Carbon Dioxide BUN Creatinine Glucose POC Glucose 168 H 282 H Calcium Phosphorus Lactate Dehydrogenase Total Creatine Kinase NT-Pro-B Natriuret Pep Albumin Fgudv-7-Nnupcniex Lohdj-9-Zblsmhrdb Beta Globulins PEP Interpretation Cholesterol LDL Cholesterol Direct 04/02/16 04/02/16 04/02/16 05:00 05:00 06:27 WBC 12.4 H RBC Hgb Hct MCV 81 L MCH 26 L MCHC RDW Plt Count Lymph % (Auto) 6.4 L [place] % (Auto) 13.3 H Lymph # 0.8 L [place] # 1.7 H Baso # Seg Neutrophils % 79.4 H Seg Neuts % (Manual) Lymphocytes % (Manual) Seg Neutrophils # 9.9 H Seg Neutrophils # Man Lymphocytes # (Manual) Monocytes # (Manual) PT INR APTT Heparin Anti-Xa Level POC ABG pH POC ABG pCO2 POC ABG pO2 Sodium 146 H Potassium Chloride Carbon Dioxide BUN Creatinine Glucose 334 H POC Glucose 317 H Calcium 8.0 L Phosphorus Lactate Dehydrogenase Total Creatine Kinase NT-Pro-B Natriuret Pep Albumin Gdksc-6-Ycwlfftzk Rxctn-4-Xhalaemrt Beta Globulins PEP Interpretation Cholesterol LDL Cholesterol Direct 04/02/16 04/02/16 04/02/16 11:51 13:10 17:24 WBC RBC Hgb Hct MCV MCH MCHC RDW Plt Count Lymph % (Auto) [place] % (Auto) Lymph # [place] # Baso # Seg Neutrophils % Seg Neuts % (Manual) Lymphocytes % (Manual) Seg Neutrophils # Seg Neutrophils # Man Lymphocytes # (Manual) Monocytes # (Manual) PT INR APTT Heparin Anti-Xa Level POC ABG pH 7.518 H POC ABG pCO2 POC ABG pO2 Sodium Potassium Chloride Carbon Dioxide BUN Creatinine Glucose POC Glucose 278 H 195 H Calcium Phosphorus Lactate Dehydrogenase Total Creatine Kinase NT-Pro-B Natriuret Pep Albumin Tcrux-0-Eahxhxixz Qviii-0-Jnzekbnei Beta Globulins PEP Interpretation Cholesterol LDL Cholesterol Direct 04/03/16 04/03/16 04/03/16 00:18 04:10 04:10 WBC 14.3 H RBC Hgb Hct MCV 81 L MCH 26 L MCHC RDW Plt Count Lymph % (Auto) 9.0 L [place] % (Auto) 10.7 H Lymph # [place] # 1.5 H Baso # 0.2 H Seg Neutrophils % 78.5 H Seg Neuts % (Manual) Lymphocytes % (Manual) Seg Neutrophils # 11.3 H Seg Neutrophils # Man Lymphocytes # (Manual) Monocytes # (Manual) PT INR APTT Heparin Anti-Xa Level POC ABG pH POC ABG pCO2 POC ABG pO2 Sodium 148 H Potassium Chloride 108.1 H Carbon Dioxide BUN 21 H Creatinine Glucose 227 H POC Glucose 144 H Calcium 8.2 L Phosphorus Lactate Dehydrogenase Total Creatine Kinase NT-Pro-B Natriuret Pep Albumin Ppqiy-9-Vjpzwtszo Brjbw-1-Uiajjefdy Beta Globulins PEP Interpretation Cholesterol LDL Cholesterol Direct 04/03/16 04/03/16 04/04/16 11:14 17:10 04:00 WBC 14.5 H RBC Hgb Hct MCV 81 L MCH 26 L MCHC RDW Plt Count Lymph % (Auto) 7.2 L [place] % (Auto) 7.6 H Lymph # 1.0 L [place] # 1.1 H Baso # Seg Neutrophils % 84.5 H Seg Neuts % (Manual) Lymphocytes % (Manual) Seg Neutrophils # 12.3 H Seg Neutrophils # Man Lymphocytes # (Manual) Monocytes # (Manual) PT INR APTT Heparin Anti-Xa Level POC ABG pH POC ABG pCO2 POC ABG pO2 Sodium Potassium Chloride Carbon Dioxide BUN Creatinine Glucose POC Glucose 267 H 212 H Calcium Phosphorus Lactate Dehydrogenase Total Creatine Kinase NT-Pro-B Natriuret Pep Albumin Llymd-0-Ehcsjjhpf Bgfuj-9-Xyilnzlnd Beta Globulins PEP Interpretation Cholesterol LDL Cholesterol Direct 04/04/16 04/04/16 04/04/16 05:00 09:55 09:55 WBC RBC Hgb 11.5 L Hct MCV MCH MCHC RDW Plt Count Lymph % (Auto) [place] % (Auto) Lymph # [place] # Baso # Seg Neutrophils % Seg Neuts % (Manual) Lymphocytes % (Manual) Seg Neutrophils # Seg Neutrophils # Man Lymphocytes # (Manual) Monocytes # (Manual) PT INR APTT 42.1 H Heparin Anti-Xa Level POC ABG pH POC ABG pCO2 POC ABG pO2 Sodium 146 H Potassium Chloride Carbon Dioxide BUN 22 H Creatinine Glucose 128 H POC Glucose Calcium Phosphorus Lactate Dehydrogenase Total Creatine Kinase NT-Pro-B Natriuret Pep Albumin Qfxjv-6-Jskdahhft Dwdbe-8-Jkmjylpvq Beta Globulins PEP Interpretation Cholesterol LDL Cholesterol Direct 04/04/16 04/04/16 04/04/16 11:45 17:49 17:55 WBC RBC Hgb Hct MCV MCH MCHC RDW Plt Count Lymph % (Auto) [place] % (Auto) Lymph # [place] # Baso # Seg Neutrophils % Seg Neuts % (Manual) Lymphocytes % (Manual) Seg Neutrophils # Seg Neutrophils # Man Lymphocytes # (Manual) Monocytes # (Manual) PT INR APTT Heparin Anti-Xa Level 1.19 H POC ABG pH POC ABG pCO2 POC ABG pO2 Sodium Potassium Chloride Carbon Dioxide BUN Creatinine Glucose POC Glucose 231 H 186 H Calcium Phosphorus Lactate Dehydrogenase Total Creatine Kinase NT-Pro-B Natriuret Pep Albumin Vcrev-4-Xzbjbtzzv Fleen-3-Zrfqdaohu Beta Globulins PEP Interpretation Cholesterol LDL Cholesterol Direct 04/05/16 04/05/16 04/05/16 00:35 05:32 05:42 WBC RBC Hgb Hct MCV MCH MCHC RDW Plt Count Lymph % (Auto) [place] % (Auto) Lymph # [place] # Baso # Seg Neutrophils % Seg Neuts % (Manual) Lymphocytes % (Manual) Seg Neutrophils # Seg Neutrophils # Man Lymphocytes # (Manual) Monocytes # (Manual) PT INR APTT Heparin Anti-Xa Level POC ABG pH 7.491 H POC ABG pCO2 POC ABG pO2 Sodium Potassium Chloride Carbon Dioxide BUN Creatinine Glucose POC Glucose 192 H 242 H Calcium Phosphorus Lactate Dehydrogenase Total Creatine Kinase NT-Pro-B Natriuret Pep Albumin Nkkja-5-Qklxcnrqu Tvvtm-6-Ufefnkfjp Beta Globulins PEP Interpretation Cholesterol LDL Cholesterol Direct 04/05/16 04/05/16 04/05/16 06:20 06:20 12:19 WBC 13.9 H RBC Hgb 11.6 L Hct MCV 81 L MCH 26 L MCHC RDW Plt Count Lymph % (Auto) 9.6 L [place] % (Auto) 8.7 H Lymph # [place] # 1.2 H Baso # Seg Neutrophils % 80.9 H Seg Neuts % (Manual) Lymphocytes % (Manual) Seg Neutrophils # 11.3 H Seg Neutrophils # Man Lymphocytes # (Manual) Monocytes # (Manual) PT INR APTT Heparin Anti-Xa Level POC ABG pH POC ABG pCO2 POC ABG pO2 Sodium 148 H Potassium Chloride Carbon Dioxide BUN 23 H Creatinine Glucose 242 H POC Glucose 187 H Calcium Phosphorus Lactate Dehydrogenase Total Creatine Kinase NT-Pro-B Natriuret Pep Albumin Rhdiw-4-Vpyfoacpu Kjwjf-0-Ussmohknm Beta Globulins PEP Interpretation Cholesterol LDL Cholesterol Direct 04/05/16 04/05/16 04/06/16 17:10 23:45 05:23 WBC 13.0 H RBC Hgb Hct MCV 82 L MCH 26 L MCHC 31 L RDW Plt Count Lymph % (Auto) 6.7 L [place] % (Auto) 8.3 H Lymph # 0.9 L [place] # 1.1 H Baso # Seg Neutrophils % 84.6 H Seg Neuts % (Manual) Lymphocytes % (Manual) Seg Neutrophils # 11.0 H Seg Neutrophils # Man Lymphocytes # (Manual) Monocytes # (Manual) PT INR APTT Heparin Anti-Xa Level POC ABG pH POC ABG pCO2 POC ABG pO2 Sodium Potassium Chloride Carbon Dioxide BUN Creatinine Glucose POC Glucose 169 H 202 H Calcium Phosphorus Lactate Dehydrogenase Total Creatine Kinase NT-Pro-B Natriuret Pep Albumin Rdmjl-2-Njuyzdpju Yzsqq-2-[place] Beta Globulins PEP Interpretation Cholesterol LDL Cholesterol Direct 04/06/16 04/06/16 04/06/16 05:23 05:23 06:11 WBC RBC Hgb Hct MCV MCH MCHC RDW Plt Count Lymph % (Auto) [place] % (Auto) Lymph # [place] # Baso # Seg Neutrophils % Seg Neuts % (Manual) Lymphocytes % (Manual) Seg Neutrophils # Seg Neutrophils # Man Lymphocytes # (Manual) Monocytes # (Manual) PT INR APTT Heparin Anti-Xa Level 0.21 L POC ABG pH POC ABG pCO2 POC ABG pO2 Sodium 153 H Potassium Chloride 111.3 H Carbon Dioxide BUN 22 H Creatinine Glucose 62 L POC Glucose 56 L Calcium Phosphorus Lactate Dehydrogenase Total Creatine Kinase NT-Pro-B Natriuret Pep Albumin Fatcr-8-Dobxstjto Nmnds-3-Ayttilgwc Beta Globulins PEP Interpretation Cholesterol LDL Cholesterol Direct 04/06/16 04/06/16 04/06/16 06:52 11:36 14:58 WBC RBC Hgb Hct MCV MCH MCHC RDW Plt Count Lymph % (Auto) [place] % (Auto) Lymph # [place] # Baso # Seg Neutrophils % Seg Neuts % (Manual) Lymphocytes % (Manual) Seg Neutrophils # Seg Neutrophils # Man Lymphocytes # (Manual) Monocytes # (Manual) PT INR APTT Heparin Anti-Xa Level POC ABG pH POC ABG pCO2 POC ABG pO2 Sodium Potassium Chloride Carbon Dioxide BUN Creatinine Glucose POC Glucose 206 H 139 H 147 H Calcium Phosphorus Lactate Dehydrogenase Total Creatine Kinase NT-Pro-B Natriuret Pep Albumin Vnlfq-0-Weodfsjwd Tnhxr-1-Ikdqlzorp Beta Globulins PEP Interpretation Cholesterol LDL Cholesterol Direct 04/06/16 04/06/16 04/06/16 16:03 21:18 23:53 WBC RBC Hgb Hct MCV MCH MCHC RDW Plt Count Lymph % (Auto) [place] % (Auto) Lymph # [place] # Baso # Seg Neutrophils % Seg Neuts % (Manual) Lymphocytes % (Manual) Seg Neutrophils # Seg Neutrophils # Man Lymphocytes # (Manual) Monocytes # (Manual) PT INR APTT Heparin Anti-Xa Level POC ABG pH POC ABG pCO2 POC ABG pO2 Sodium Potassium Chloride Carbon Dioxide BUN Creatinine Glucose POC Glucose 154 H 293 H 301 H Calcium Phosphorus Lactate Dehydrogenase Total Creatine Kinase NT-Pro-B Natriuret Pep Albumin Lvbxz-1-Sqvuuozec Pphvp-6-Ncwgcrhiu Beta Globulins PEP Interpretation Cholesterol LDL Cholesterol Direct 04/07/16 04/07/16 04/07/16 02:30 05:11 05:11 WBC 12.5 H RBC Hgb 11.5 L Hct MCV 82 L MCH 26 L MCHC 31 L RDW Plt Count Lymph % (Auto) [place] % (Auto) Lymph # [place] # Baso # Seg Neutrophils % Seg Neuts % (Manual) Lymphocytes % (Manual) Seg Neutrophils # Seg Neutrophils # Man Lymphocytes # (Manual) Monocytes # (Manual) PT INR APTT Heparin Anti-Xa Level 0.11 L POC ABG pH POC ABG pCO2 POC ABG pO2 Sodium 150 H Potassium Chloride 109.5 H Carbon Dioxide BUN 28 H Creatinine Glucose 264 H POC Glucose Calcium Phosphorus Lactate Dehydrogenase Total Creatine Kinase NT-Pro-B Natriuret Pep Albumin Fmuam-1-Tmqpdnosn Hkunr-2-Oxgxceedc Beta Globulins PEP Interpretation Cholesterol LDL Cholesterol Direct 04/07/16 04/07/16 04/07/16 06:46 10:18 11:50 WBC RBC Hgb Hct MCV MCH MCHC RDW Plt Count Lymph % (Auto) [place] % (Auto) Lymph # [place] # Baso # Seg Neutrophils % Seg Neuts % (Manual) Lymphocytes % (Manual) Seg Neutrophils # Seg Neutrophils # Man Lymphocytes # (Manual) Monocytes # (Manual) PT 15.1 H INR 1.20 H APTT Heparin Anti-Xa Level POC ABG pH POC ABG pCO2 POC ABG pO2 Sodium Potassium Chloride Carbon Dioxide BUN Creatinine Glucose POC Glucose 259 H 288 H Calcium Phosphorus Lactate Dehydrogenase Total Creatine Kinase NT-Pro-B Natriuret Pep Albumin Qtqtl-5-Zsfwursyf Tcmdp-2-Elqcskdkv Beta Globulins PEP Interpretation Cholesterol LDL Cholesterol Direct 04/07/16 04/08/16 04/08/16 17:58 01:25 06:49 WBC RBC Hgb Hct MCV MCH MCHC RDW Plt Count Lymph % (Auto) [place] % (Auto) Lymph # [place] # Baso # Seg Neutrophils % Seg Neuts % (Manual) Lymphocytes % (Manual) Seg Neutrophils # Seg Neutrophils # Man Lymphocytes # (Manual) Monocytes # (Manual) PT INR APTT Heparin Anti-Xa Level POC ABG pH POC ABG pCO2 POC ABG pO2 Sodium 156 H Potassium Chloride 114.7 H Carbon Dioxide BUN 33 H Creatinine Glucose 169 H POC Glucose 330 H 146 H Calcium Phosphorus Lactate Dehydrogenase Total Creatine Kinase NT-Pro-B Natriuret Pep Albumin Iacsx-6-Ekydlpmtr Oayzv-0-Qdebqdkjp Beta Globulins PEP Interpretation Cholesterol LDL Cholesterol Direct 04/08/16 04/08/16 04/08/16 07:34 10:28 10:28 WBC RBC Hgb Hct MCV MCH MCHC RDW Plt Count Lymph % (Auto) [place] % (Auto) Lymph # [place] # Baso # Seg Neutrophils % Seg Neuts % (Manual) Lymphocytes % (Manual) Seg Neutrophils # Seg Neutrophils # Man Lymphocytes # (Manual) Monocytes # (Manual) PT 15.5 H INR 1.24 H APTT Heparin Anti-Xa Level 0.24 L POC ABG pH POC ABG pCO2 POC ABG pO2 Sodium Potassium Chloride Carbon Dioxide BUN Creatinine Glucose POC Glucose 232 H Calcium Phosphorus Lactate Dehydrogenase Total Creatine Kinase NT-Pro-B Natriuret Pep Albumin Cyabi-6-Rsoezlajt Yqdut-2-Zxallwevh Beta Globulins PEP Interpretation Cholesterol LDL Cholesterol Direct 04/08/16 04/08/16 04/09/16 11:36 15:38 00:01 WBC RBC Hgb Hct MCV MCH MCHC RDW Plt Count Lymph % (Auto) [place] % (Auto) Lymph # [place] # Baso # Seg Neutrophils % Seg Neuts % (Manual) Lymphocytes % (Manual) Seg Neutrophils # Seg Neutrophils # Man Lymphocytes # (Manual) Monocytes # (Manual) PT INR APTT Heparin Anti-Xa Level POC ABG pH POC ABG pCO2 POC ABG pO2 Sodium Potassium Chloride Carbon Dioxide BUN Creatinine Glucose POC Glucose 193 H 163 H 180 H Calcium Phosphorus Lactate Dehydrogenase Total Creatine Kinase NT-Pro-B Natriuret Pep Albumin Nluhr-6-Jpahtgybe Sxome-7-Shaclqjhc Beta Globulins PEP Interpretation Cholesterol LDL Cholesterol Direct 04/09/16 04/09/16 04/09/16 06:17 06:42 06:42 WBC RBC Hgb Hct MCV MCH MCHC RDW Plt Count Lymph % (Auto) [place] % (Auto) Lymph # [place] # Baso # Seg Neutrophils % Seg Neuts % (Manual) Lymphocytes % (Manual) Seg Neutrophils # Seg Neutrophils # Man Lymphocytes # (Manual) Monocytes # (Manual) PT 17.4 H INR 1.43 H APTT Heparin Anti-Xa Level POC ABG pH POC ABG pCO2 POC ABG pO2 Sodium 153 H Potassium Chloride 113.2 H Carbon Dioxide BUN 29 H Creatinine Glucose 301 H POC Glucose 249 H Calcium 8.3 L Phosphorus Lactate Dehydrogenase Total Creatine Kinase NT-Pro-B Natriuret Pep Albumin Sfhsu-2-Obazcqpsm Moqea-8-Wvpafwiuz Beta Globulins PEP Interpretation Cholesterol LDL Cholesterol Direct 04/09/16 04/09/16 04/09/16 07:37 11:26 15:45 WBC RBC Hgb Hct MCV MCH MCHC RDW Plt Count Lymph % (Auto) [place] % (Auto) Lymph # [place] # Baso # Seg Neutrophils % Seg Neuts % (Manual) Lymphocytes % (Manual) Seg Neutrophils # Seg Neutrophils # Man Lymphocytes # (Manual) Monocytes # (Manual) PT INR APTT Heparin Anti-Xa Level POC ABG pH POC ABG pCO2 POC ABG pO2 Sodium Potassium Chloride Carbon Dioxide BUN Creatinine Glucose POC Glucose 283 H 306 H 354 H Calcium Phosphorus Lactate Dehydrogenase Total Creatine Kinase NT-Pro-B Natriuret Pep Albumin Purvz-6-Xtngmxktg Fwfth-3-Toeltqgur Beta Globulins PEP Interpretation Cholesterol LDL Cholesterol Direct 04/10/16 04/10/16 04/10/16 00:53 07:15 07:34 WBC RBC Hgb 11.3 L Hct MCV MCH MCHC RDW Plt Count Lymph % (Auto) [place] % (Auto) Lymph # [place] # Baso # Seg Neutrophils % Seg Neuts % (Manual) Lymphocytes % (Manual) Seg Neutrophils # Seg Neutrophils # Man Lymphocytes # (Manual) Monocytes # (Manual) PT INR APTT Heparin Anti-Xa Level POC ABG pH POC ABG pCO2 POC ABG pO2 Sodium Potassium Chloride Carbon Dioxide BUN Creatinine Glucose POC Glucose 323 H 311 H Calcium Phosphorus Lactate Dehydrogenase Total Creatine Kinase NT-Pro-B Natriuret Pep Albumin Uncrq-6-Wiyazyayf Yzqoi-6-Wutksiwfu Beta Globulins PEP Interpretation Cholesterol LDL Cholesterol Direct 04/10/16 04/10/16 04/10/16 07:34 07:34 11:25 WBC RBC Hgb Hct MCV MCH MCHC RDW Plt Count Lymph % (Auto) [place] % (Auto) Lymph # [place] # Baso # Seg Neutrophils % Seg Neuts % (Manual) Lymphocytes % (Manual) Seg Neutrophils # Seg Neutrophils # Man Lymphocytes # (Manual) Monocytes # (Manual) PT 17.3 H INR 1.42 H APTT Heparin Anti-Xa Level POC ABG pH POC ABG pCO2 POC ABG pO2 Sodium 158 H Potassium Chloride 118.6 H Carbon Dioxide BUN 30 H Creatinine Glucose 330 H POC Glucose 335 H Calcium 8.3 L Phosphorus Lactate Dehydrogenase Total Creatine Kinase NT-Pro-B Natriuret Pep Albumin Werjd-0-Bbgqwlmlt Unnhq-4-Oceyzfruq Beta Globulins PEP Interpretation Cholesterol LDL Cholesterol Direct 04/10/16 04/11/16 04/11/16 16:21 00:29 07:47 WBC RBC Hgb Hct MCV MCH MCHC RDW Plt Count Lymph % (Auto) [place] % (Auto) Lymph # [place] # Baso # Seg Neutrophils % Seg Neuts % (Manual) Lymphocytes % (Manual) Seg Neutrophils # Seg Neutrophils # Man Lymphocytes # (Manual) Monocytes # (Manual) PT 18.4 H INR 1.53 H APTT Heparin Anti-Xa Level POC ABG pH POC ABG pCO2 POC ABG pO2 Sodium Potassium Chloride Carbon Dioxide BUN Creatinine Glucose POC Glucose 230 H 162 H Calcium Phosphorus Lactate Dehydrogenase Total Creatine Kinase NT-Pro-B Natriuret Pep Albumin Afxar-4-Bzgauolwf Yryyx-5-Urchnymms Beta Globulins PEP Interpretation Cholesterol LDL Cholesterol Direct 04/11/16 04/11/16 04/12/16 07:47 11:22 04:54 WBC RBC Hgb 11.0 L Hct 35.0 L MCV MCH MCHC RDW Plt Count Lymph % (Auto) [place] % (Auto) Lymph # [place] # Baso # Seg Neutrophils % Seg Neuts % (Manual) Lymphocytes % (Manual) Seg Neutrophils # Seg Neutrophils # Man Lymphocytes # (Manual) Monocytes # (Manual) PT INR APTT Heparin Anti-Xa Level POC ABG pH POC ABG pCO2 POC ABG pO2 Sodium 155 H Potassium Chloride 114.5 H Carbon Dioxide BUN 23 H Creatinine Glucose 157 H POC Glucose 229 H Calcium Phosphorus Lactate Dehydrogenase Total Creatine Kinase NT-Pro-B Natriuret Pep Albumin Fmngh-5-Btgcgxksv Fnoqh-3-Xkyembtnx Beta Globulins PEP Interpretation Cholesterol LDL Cholesterol Direct 04/12/16 04/12/16 04/12/16 04:54 04:54 05:57 WBC RBC Hgb Hct MCV MCH MCHC RDW Plt Count Lymph % (Auto) [place] % (Auto) Lymph # [place] # Baso # Seg Neutrophils % Seg Neuts % (Manual) Lymphocytes % (Manual) Seg Neutrophils # Seg Neutrophils # Man Lymphocytes # (Manual) Monocytes # (Manual) PT 22.5 H INR 1.98 H APTT Heparin Anti-Xa Level 0.19 L POC ABG pH POC ABG pCO2 POC ABG pO2 Sodium 156 H Potassium Chloride 115.4 H Carbon Dioxide BUN 23 H Creatinine Glucose 143 H POC Glucose 194 H Calcium Phosphorus Lactate Dehydrogenase Total Creatine Kinase NT-Pro-B Natriuret Pep Albumin Hnssx-0-Jtnfdbroy Yohfh-2-Csbewhbhi Beta Globulins PEP Interpretation Cholesterol LDL Cholesterol Direct 04/12/16 04/12/16 04/12/16 12:34 19:01 23:30 WBC RBC Hgb Hct MCV MCH MCHC RDW Plt Count Lymph % (Auto) [place] % (Auto) Lymph # [place] # Baso # Seg Neutrophils % Seg Neuts % (Manual) Lymphocytes % (Manual) Seg Neutrophils # Seg Neutrophils # Man Lymphocytes # (Manual) Monocytes # (Manual) PT INR APTT Heparin Anti-Xa Level POC ABG pH POC ABG pCO2 POC ABG pO2 Sodium Potassium Chloride Carbon Dioxide BUN Creatinine Glucose POC Glucose 291 H 235 H 154 H Calcium Phosphorus Lactate Dehydrogenase Total Creatine Kinase NT-Pro-B Natriuret Pep Albumin Ckhvj-2-Nsoucschr Uakcv-4-Hfokvqibl Beta Globulins PEP Interpretation Cholesterol LDL Cholesterol Direct 04/13/16 04/13/16 04/13/16 05:16 05:16 05:28 WBC RBC Hgb Hct MCV MCH MCHC RDW Plt Count Lymph % (Auto) [place] % (Auto) Lymph # [place] # Baso # Seg Neutrophils % Seg Neuts % (Manual) Lymphocytes % (Manual) Seg Neutrophils # Seg Neutrophils # Man Lymphocytes # (Manual) Monocytes # (Manual) PT 27.0 H INR 2.49 H APTT Heparin Anti-Xa Level 0.20 L POC ABG pH POC ABG pCO2 POC ABG pO2 Sodium 150 H Potassium Chloride 110.5 H Carbon Dioxide BUN 21 H Creatinine Glucose 159 H POC Glucose 177 H Calcium Phosphorus Lactate Dehydrogenase Total Creatine Kinase NT-Pro-B Natriuret Pep Albumin Czzdx-9-Ydfwdqupd Dgqyj-7-Dstvckuwg Beta Globulins PEP Interpretation Cholesterol LDL Cholesterol Direct 04/13/16 04/13/16 04/14/16 11:30 17:54 00:44 WBC RBC Hgb Hct MCV MCH MCHC RDW Plt Count Lymph % (Auto) [place] % (Auto) Lymph # [place] # Baso # Seg Neutrophils % Seg Neuts % (Manual) Lymphocytes % (Manual) Seg Neutrophils # Seg Neutrophils # Man Lymphocytes # (Manual) Monocytes # (Manual) PT INR APTT Heparin Anti-Xa Level POC ABG pH POC ABG pCO2 POC ABG pO2 Sodium Potassium Chloride Carbon Dioxide BUN Creatinine Glucose POC Glucose 181 H 251 H 237 H Calcium Phosphorus Lactate Dehydrogenase Total Creatine Kinase NT-Pro-B Natriuret Pep Albumin Swwhc-9-Hauwvasyc Wrben-6-Ynjuskjbd Beta Globulins PEP Interpretation Cholesterol LDL Cholesterol Direct 04/14/16 04/14/16 04/14/16 05:00 05:42 05:42 WBC RBC Hgb Hct MCV MCH MCHC RDW Plt Count Lymph % (Auto) [place] % (Auto) Lymph # [place] # Baso # Seg Neutrophils % Seg Neuts % (Manual) Lymphocytes % (Manual) Seg Neutrophils # Seg Neutrophils # Man Lymphocytes # (Manual) Monocytes # (Manual) PT 30.3 H INR 2.88 H APTT Heparin Anti-Xa Level 0.27 L POC ABG pH POC ABG pCO2 POC ABG pO2 Sodium Potassium 3.5 L Chloride Carbon Dioxide BUN Creatinine Glucose 160 H POC Glucose Calcium 8.2 L Phosphorus Lactate Dehydrogenase Total Creatine Kinase NT-Pro-B Natriuret Pep Albumin Bzsjp-4-Vyrlazkuq Dtvut-0-Msgmmwilc Beta Globulins PEP Interpretation Cholesterol LDL Cholesterol Direct 04/14/16 04/14/16 04/14/16 06:02 06:16 09:18 WBC 12.3 H RBC Hgb 11.4 L Hct MCV 82 L MCH 26 L MCHC RDW Plt Count Lymph % (Auto) [place] % (Auto) Lymph # [place] # Baso # Seg Neutrophils % Seg Neuts % (Manual) Lymphocytes % (Manual) Seg Neutrophils # Seg Neutrophils # Man Lymphocytes # (Manual) Monocytes # (Manual) PT INR APTT Heparin Anti-Xa Level POC ABG pH POC ABG pCO2 POC ABG pO2 Sodium Potassium Chloride Carbon Dioxide BUN Creatinine Glucose POC Glucose 156 H 164 H Calcium Phosphorus Lactate Dehydrogenase Total Creatine Kinase NT-Pro-B Natriuret Pep Albumin Ekytf-3-Wrmnerfpc Hkwid-5-Ypstgrpzu Beta Globulins PEP Interpretation Cholesterol LDL Cholesterol Direct 04/14/16 04/15/16 04/15/16 13:58 01:07 06:04 WBC RBC Hgb Hct MCV MCH MCHC RDW Plt Count Lymph % (Auto) [place] % (Auto) Lymph # [place] # Baso # Seg Neutrophils % Seg Neuts % (Manual) Lymphocytes % (Manual) Seg Neutrophils # Seg Neutrophils # Man Lymphocytes # (Manual) Monocytes # (Manual) PT 24.9 H INR 2.25 H APTT Heparin Anti-Xa Level POC ABG pH POC ABG pCO2 POC ABG pO2 Sodium Potassium Chloride Carbon Dioxide BUN Creatinine Glucose POC Glucose 109 H 154 H Calcium Phosphorus Lactate Dehydrogenase Total Creatine Kinase NT-Pro-B Natriuret Pep Albumin Wqjdo-9-Dhxbpxdwx Ptxog-5-Nzshxcsgr Beta Globulins PEP Interpretation Cholesterol LDL Cholesterol Direct 04/15/16 04/15/16 04/16/16 06:08 12:41 00:38 WBC RBC Hgb Hct MCV MCH MCHC RDW Plt Count Lymph % (Auto) [place] % (Auto) Lymph # [place] # Baso # Seg Neutrophils % Seg Neuts % (Manual) Lymphocytes % (Manual) Seg Neutrophils # Seg Neutrophils # Man Lymphocytes # (Manual) Monocytes # (Manual) PT INR APTT Heparin Anti-Xa Level POC ABG pH POC ABG pCO2 POC ABG pO2 Sodium Potassium Chloride Carbon Dioxide BUN Creatinine Glucose POC Glucose 165 H 223 H 216 H Calcium Phosphorus Lactate Dehydrogenase Total Creatine Kinase NT-Pro-B Natriuret Pep Albumin Nprbo-9-Xypatnqlf Prbdy-2-Cggatvvsl Beta Globulins PEP Interpretation Cholesterol LDL Cholesterol Direct 04/16/16 04/16/16 04/16/16 05:45 07:09 14:00 WBC RBC Hgb Hct MCV MCH MCHC RDW Plt Count Lymph % (Auto) [place] % (Auto) Lymph # [place] # Baso # Seg Neutrophils % Seg Neuts % (Manual) Lymphocytes % (Manual) Seg Neutrophils # Seg Neutrophils # Man Lymphocytes # (Manual) Monocytes # (Manual) PT 19.4 H INR 1.64 H APTT Heparin Anti-Xa Level 0.10 L POC ABG pH POC ABG pCO2 POC ABG pO2 Sodium Potassium Chloride Carbon Dioxide BUN Creatinine Glucose POC Glucose 207 H 69 L Calcium Phosphorus Lactate Dehydrogenase Total Creatine Kinase NT-Pro-B Natriuret Pep Albumin Wearx-0-Eunwtumeb Klmqn-8-Wyoabgbpo Beta Globulins PEP Interpretation Cholesterol LDL Cholesterol Direct 04/16/16 04/16/16 04/16/16 17:40 17:52 19:38 WBC RBC Hgb Hct MCV MCH MCHC RDW Plt Count Lymph % (Auto) [place] % (Auto) Lymph # [place] # Baso # Seg Neutrophils % Seg Neuts % (Manual) Lymphocytes % (Manual) Seg Neutrophils # Seg Neutrophils # Man Lymphocytes # (Manual) Monocytes # (Manual) PT INR APTT Heparin Anti-Xa Level 0.26 L POC ABG pH 7.543 H 7.488 H POC ABG pCO2 26.3 L 30.3 L POC ABG pO2 55 L 203 H Sodium Potassium Chloride Carbon Dioxide BUN Creatinine Glucose POC Glucose Calcium Phosphorus Lactate Dehydrogenase Total Creatine Kinase NT-Pro-B Natriuret Pep Albumin Uohyr-6-Rifagcrqc Lzofi-2-Ilmjuxmfn Beta Globulins PEP Interpretation Cholesterol LDL Cholesterol Direct 04/17/16 04/17/16 04/17/16 00:04 05:10 05:36 WBC RBC Hgb Hct MCV MCH MCHC RDW Plt Count Lymph % (Auto) [place] % (Auto) Lymph # [place] # Baso # Seg Neutrophils % Seg Neuts % (Manual) Lymphocytes % (Manual) Seg Neutrophils # Seg Neutrophils # Man Lymphocytes # (Manual) Monocytes # (Manual) PT INR APTT Heparin Anti-Xa Level POC ABG pH POC ABG pCO2 32.7 L POC ABG pO2 68 L Sodium Potassium Chloride Carbon Dioxide BUN Creatinine Glucose POC Glucose 113 H 161 H Calcium Phosphorus Lactate Dehydrogenase Total Creatine Kinase NT-Pro-B Natriuret Pep Albumin Kabxf-5-Jaffvhzai Njlcj-4-Kjdtvdnhz Beta Globulins PEP Interpretation Cholesterol LDL Cholesterol Direct 04/17/16 04/17/16 04/17/16 05:41 08:37 11:46 WBC RBC Hgb Hct MCV MCH MCHC RDW Plt Count Lymph % (Auto) [place] % (Auto) Lymph # [place] # Baso # Seg Neutrophils % Seg Neuts % (Manual) Lymphocytes % (Manual) Seg Neutrophils # Seg Neutrophils # Man Lymphocytes # (Manual) Monocytes # (Manual) PT 17.4 H INR 1.43 H APTT Heparin Anti-Xa Level POC ABG pH POC ABG pCO2 POC ABG pO2 Sodium Potassium Chloride Carbon Dioxide BUN Creatinine Glucose POC Glucose 154 H 138 H Calcium Phosphorus Lactate Dehydrogenase Total Creatine Kinase NT-Pro-B Natriuret Pep Albumin Geoia-9-Qgaskqupq Eyxju-1-Jghrezlzl Beta Globulins PEP Interpretation Cholesterol LDL Cholesterol Direct 04/17/16 04/17/16 04/17/16 12:17 12:17 21:20 WBC 16.5 H RBC 3.31 L Hgb 8.8 L Hct 26.9 L MCV 81 L MCH 27 L MCHC RDW 15.5 H Plt Count Lymph % (Auto) [place] % (Auto) Lymph # [place] # Baso # Seg Neutrophils % Seg Neuts % (Manual) Lymphocytes % (Manual) 3.0 L Seg Neutrophils # Seg Neutrophils # Man 10.1 H Lymphocytes # (Manual) 0.5 L Monocytes # (Manual) PT INR APTT Heparin Anti-Xa Level 0.14 L POC ABG pH POC ABG pCO2 POC ABG pO2 Sodium Potassium Chloride Carbon Dioxide 21 L BUN 38 H Creatinine 1.8 H D Glucose 131 H POC Glucose Calcium 7.6 L Phosphorus Lactate Dehydrogenase Total Creatine Kinase NT-Pro-B Natriuret Pep Albumin Djlqa-5-Ewmnqgwcu Eqkih-6-Jsuwsqotl Beta Globulins PEP Interpretation Cholesterol LDL Cholesterol Direct 04/17/16 04/17/16 04/18/16 23:38 23:41 00:21 WBC RBC Hgb Hct MCV MCH MCHC RDW Plt Count Lymph % (Auto) [place] % (Auto) Lymph # [place] # Baso # Seg Neutrophils % Seg Neuts % (Manual) Lymphocytes % (Manual) Seg Neutrophils # Seg Neutrophils # Man Lymphocytes # (Manual) Monocytes # (Manual) PT INR APTT Heparin Anti-Xa Level POC ABG pH POC ABG pCO2 POC ABG pO2 Sodium Potassium Chloride Carbon Dioxide BUN Creatinine Glucose POC Glucose < 40 L < 40 L 223 H Calcium Phosphorus Lactate Dehydrogenase Total Creatine Kinase NT-Pro-B Natriuret Pep Albumin Wayqw-6-Fsncfzkky Qwcjg-9-Mehiymdcj Beta Globulins PEP Interpretation Cholesterol LDL Cholesterol Direct 04/18/16 04/18/16 04/18/16 05:01 05:20 05:20 WBC 17.6 H RBC 3.44 L Hgb 9.1 L Hct 27.8 L MCV 81 L MCH 26 L MCHC RDW 15.5 H Plt Count Lymph % (Auto) 2.7 L [place] % (Auto) 8.3 H Lymph # 0.5 L [place] # 1.5 H Baso # Seg Neutrophils % 88.4 H Seg Neuts % (Manual) Lymphocytes % (Manual) Seg Neutrophils # 15.6 H Seg Neutrophils # Man Lymphocytes # (Manual) Monocytes # (Manual) PT 17.4 H INR 1.43 H APTT Heparin Anti-Xa Level POC ABG pH 7.528 H POC ABG pCO2 27.9 L POC ABG pO2 Sodium Potassium Chloride Carbon Dioxide BUN Creatinine Glucose POC Glucose Calcium Phosphorus Lactate Dehydrogenase Total Creatine Kinase NT-Pro-B Natriuret Pep Albumin Wrbpq-3-Nmmflizvs Wawva-7-Pqoqmnvut Beta Globulins PEP Interpretation Cholesterol LDL Cholesterol Direct 04/18/16 04/18/16 04/18/16 05:20 05:31 06:50 WBC RBC Hgb Hct MCV MCH MCHC RDW Plt Count Lymph % (Auto) [place] % (Auto) Lymph # [place] # Baso # Seg Neutrophils % Seg Neuts % (Manual) Lymphocytes % (Manual) Seg Neutrophils # Seg Neutrophils # Man Lymphocytes # (Manual) Monocytes # (Manual) PT INR APTT Heparin Anti-Xa Level POC ABG pH POC ABG pCO2 POC ABG pO2 Sodium Potassium 3.4 L Chloride Carbon Dioxide 21 L BUN 22 H Creatinine Glucose POC Glucose 61 L 124 H Calcium 8.0 L Phosphorus Lactate Dehydrogenase Total Creatine Kinase NT-Pro-B Natriuret Pep Albumin Qpiar-9-Ipzytljzj Csata-0-Jujzcniwr Beta Globulins PEP Interpretation Cholesterol LDL Cholesterol Direct 04/18/16 04/18/16 04/19/16 17:42 22:40 00:31 WBC RBC Hgb Hct MCV MCH MCHC RDW Plt Count Lymph % (Auto) [place] % (Auto) Lymph # [place] # Baso # Seg Neutrophils % Seg Neuts % (Manual) Lymphocytes % (Manual) Seg Neutrophils # Seg Neutrophils # Man Lymphocytes # (Manual) Monocytes # (Manual) PT INR APTT Heparin Anti-Xa Level < 0.10 L POC ABG pH POC ABG pCO2 POC ABG pO2 Sodium Potassium Chloride Carbon Dioxide BUN Creatinine Glucose POC Glucose 159 H 134 H Calcium Phosphorus Lactate Dehydrogenase Total Creatine Kinase NT-Pro-B Natriuret Pep Albumin Itxmt-8-Xucfoxphb Itxko-7-Qbuesivpl Beta Globulins PEP Interpretation Cholesterol LDL Cholesterol Direct 04/19/16 04/19/16 04/19/16 04:18 04:18 04:25 WBC 19.0 H RBC 3.58 L Hgb 9.3 L Hct 28.8 L MCV 80 L MCH 26 L MCHC RDW 15.5 H Plt Count Lymph % (Auto) 2.8 L [place] % (Auto) 7.4 H Lymph # 0.5 L [place] # 1.4 H Baso # Seg Neutrophils % 89.4 H Seg Neuts % (Manual) Lymphocytes % (Manual) Seg Neutrophils # 17.0 H Seg Neutrophils # Man Lymphocytes # (Manual) Monocytes # (Manual) PT INR APTT Heparin Anti-Xa Level POC ABG pH 7.527 H POC ABG pCO2 27.1 L POC ABG pO2 Sodium Potassium Chloride Carbon Dioxide BUN 22 H Creatinine Glucose 215 H POC Glucose Calcium 8.0 L Phosphorus Lactate Dehydrogenase Total Creatine Kinase NT-Pro-B Natriuret Pep Albumin Cvcsq-4-Rnpvrilpg Lxquq-5-Bthpckpwt Beta Globulins PEP Interpretation Cholesterol LDL Cholesterol Direct 04/19/16 04/19/16 05:45 08:10 WBC RBC Hgb Hct MCV MCH MCHC RDW Plt Count Lymph % (Auto) [place] % (Auto) Lymph # [place] # Baso # Seg Neutrophils % Seg Neuts % (Manual) Lymphocytes % (Manual) Seg Neutrophils # Seg Neutrophils # Man Lymphocytes # (Manual) Monocytes # (Manual) PT 22.1 H INR 1.93 H APTT Heparin Anti-Xa Level 0.17 L POC ABG pH POC ABG pCO2 POC ABG pO2 Sodium Potassium Chloride Carbon Dioxide BUN Creatinine Glucose POC Glucose 196 H Calcium Phosphorus Lactate Dehydrogenase Total Creatine Kinase NT-Pro-B Natriuret Pep Albumin Gvgia-8-[id number] Rthzr-3-Jpjdhnkee Beta Globulins PEP Interpretation Cholesterol LDL Cholesterol Direct
[2016-04-19] MEDS: NORMODYNE PO SCH ×3 (13:51→21:05)
[2016-04-19] MEDS: NORVASC PO SCH (13:52)
[2016-04-19] MEDS: ZESTRIL PO SCH ×2 (13:52→21:05)
--- NOTE | 2016-04-19 14:40 | Consultation ---
History of Present Illness Consult date: 04/19/16 - History of present illness History of present illness: The patient is a 61M h/o DM, AVR, who has encephalopathy secondary to stroke. He has also developed respiratory failure and surgery was asked to evaluate for a tracheostomy. Past History Past Medical History: CAD, diabetes, hypertension, hyperlipidemia, renal failure , seizures, other (bioprosthetic aortic valve, aortic dissection; obtained per chart review) Past Surgical History: Other (bioprosthetic aortic valve replacement, aortic dissection repair 2; obtained per chart review) Social history: other (unable to obtain due to patient's mental status). denies : smoking Family history: other (unable to obtain due to patient's mental status) Medications and Allergies Allergies Allergy/AdvReac Type Severity Reaction Status Date / Time No Known Allergies Allergy Unverified 05/19/13 09:32 Home Medications Medication Instructions Recorded Confirmed Last Taken Type Amiodarone [Cordarone 200 MG TAB] 200 mg PO DAILY #30 tablet 05/07/15 03/24/16 Unknown Rx AtorvaSTATin [Lipitor] 10 mg PO QHS tablet 05/07/15 03/24/16 Unknown Rx Famotidine [Pepcid] 20 mg PO BID tablet 05/07/15 03/24/16 Unknown Rx Insulin Glargine [Lantus VIAL] 30 units SUB-Q QHS units 05/07/15 03/24/16 Unknown Rx Labetalol [Normodyne TAB] 300 mg PO BID #60 tablet 05/07/15 03/24/16 Unknown Rx QUEtiapine [SEROquel] 25 mg PO BID #60 tablet 05/07/15 03/24/16 Unknown Rx cloNIDine [Catapres] 0.2 mg PO TID #90 tablet 05/07/15 03/24/16 Unknown Rx levETIRAcetam [Keppra TAB] 500 mg PO BID #60 tablet 05/07/15 03/24/16 Unknown Rx metFORMIN [Glucophage] 500 mg PO BID #60 tablet 05/07/15 03/24/16 Unknown Rx Lisinopril [Zestril TAB] 40 mg PO BID 09/23/15 03/24/16 Unknown History NIFEdipine 60 mg PO DAILY 09/23/15 03/24/16 Unknown History Prazosin [Minipress] 5 mg PO BID 09/23/15 03/24/16 Unknown History glipiZIDE [glipiZIDE ER] 5 mg PO QAM 09/23/15 03/24/16 Unknown History Carvedilol [Coreg] 3.125 mg PO BID #60 tablet 09/24/15 03/24/16 Unknown Rx Active Meds: Active Medications Acetaminophen (Tylenol) 650 mg PO Q4H PRN PRN Reason: Pain MILD(1-3)/Fever >100.5/DUVAL Last Admin: 04/14/16 12:28 Dose: 650 mg Albuterol/Ipratropium (Duoneb 0.5 Mg-3 Mg/3 Ml Soln) 1 ampul IH Q6HRT [facility] Last Admin: 04/19/16 13:13 Dose: 1 ampul Amiodarone HCl (Cordarone) 200 mg PO DAILY [facility] Last Admin: 04/19/16 11:50 Dose: 200 mg Amlodipine Besylate (Norvasc) 10 mg PO DAILY [facility] Last Admin: 04/19/16 13:52 Dose: 10 mg Lipase/Protease/Amylase (Pancreaze Dr 10,500 Unit) 1 each FEEDTUBE PRN PRN PRN Reason: For Clogged Feeding Tube Aspirin (Baby Aspirin) 81 mg PO QDAY [facility] Last Admin: 04/19/16 10:50 Dose: 81 mg Atorvastatin Calcium (Lipitor) 10 mg PO QHS [facility] Last Admin: 04/18/16 21:49 Dose: 10 mg Bisacodyl (Dulcolax) 10 mg [place] QDAY PRN PRN Reason: Constipation unrelieved by MOM Dextrose (D50w (25gm)) 50 ml IV PRN PRN PRN Reason: Hypoglycemia Last Admin: 04/18/16 05:38 Dose: 50 ml Famotidine (Pepcid) 20 mg PO BID [facility] Last Admin: 04/19/16 10:50 Dose: 20 mg Hydralazine HCl (Apresoline) 20 mg IV Q6H PRN PRN Reason: PRN SBP > 150 Last Admin: 04/18/16 08:04 Dose: 20 mg Hydrophilic Ointment (Vaseline Lip Therapy) 1 applic TP Q2HR PRN PRN Reason: Dry Lips Heparin Sodium/Sodium Chloride (Heparin/ 0.45% Nacl-25,000 Unit/500 Ml) 500 mls @ 18 mls/hr IV TITRATE ANA LUISA; 900 UNITS/HR PRN Reason: Protocol Last Titration: 04/19/16 00:37 Dose: 750 units/hr Norepinephrine 8 mg/ Sodium (Chloride) 250 mls @ 3.75 mls/hr IV TITR ANA LUISA; 2 MCG /MIN PRN Reason: Protocol Last Titration: 04/18/16 03:45 Dose: 0 mcg/min Sodium Chloride (Nacl 0.9% 1000 Ml) 1,000 mls @ 50 mls/hr IV DIRECT ANA LUISA Insulin Aspart (Novolog) 0 units SUB-Q Q6HR ANA LU[facility] PRN Reason: Protocol Last Admin: 04/19/16 13:30 Dose: 6 units Labetalol HCl (Normodyne) 400 mg PO TID [facility] Last Admin: 04/19/16 13:51 Dose: 400 mg Levetiracetam (Keppra) 500 mg PO BID [facility] Last Admin: 04/19/16 10:53 Dose: 500 mg Lisinopril (Zestril) 40 mg PO BID [facility] Last Admin: 04/19/16 13:52 Dose: 40 mg Magnesium Hydroxide (Milk Of Magnesia) 30 ml PO Q4H PRN PRN Reason: Constipation Last Admin: 03/31/16 20:01 Dose: 30 ml Metoclopramide HCl (Reglan) 5 mg IV Q6H PRN PRN Reason: TUBE FEED RESIDUAL Last Admin: 04/01/16 05:36 Dose: 5 mg Multi-Ingred Cream/Lotion/Oil/Oint (Artificial Tears Ophth Oint) 1 applic OU Q4HR PRN PRN Reason: Dry Eye(s) Ondansetron HCl (Zofran) 4 mg IV Q8H PRN PRN Reason: N/V unrelieved by Reglan Last Admin: 04/01/16 23:25 Dose: 4 mg Simple Syrup (Simple Syrup) 15 ml FEEDTUBE PRN PRN PRN Reason: Hypoglycemia Simple Syrup (Simple Syrup) 30 ml FEEDTUBE PRN PRN PRN Reason: Hypoglycemia Sodium Bicarbonate (Sodium Bicarbonate) 325 mg FEEDTUBE PRN PRN PRN Reason: For Clogged Feeding Tube Sodium Chloride (Nacl 0.9% 500 Ml) 1 ml IV DIRECT ANA LUISA Warfarin Sodium (Coumadin Pharmacy To Dose) 1 each PO PKCONSULT [facility] PRN Reason: Protocol Exam Vital Signs BP 187/142 03/24/16 13:33 - Neck Positive: no masses, trachea midline - Respiratory Positive: clear to auscultation - Cardiovascular Rhythm: regular Heart Sounds: Present: S1 & S2 - Abdomen Abdomen: Present: soft. Absent: tender Results - Labs 04/19/16 04:18 04/19/16 04:18 Abnormal lab results 04/18/16 04/18/16 04/19/16 Range/Units 17:42 22:40 00:31 WBC (4.5-11.0) K/mm3 RBC (3.65-5.03) M/mm3 Hgb (11.8-15.2) gm/dl Hct (35.5-45.6) % MCV (84-94) fl MCH (28-32) pg RDW (13.2-15.2) % Lymph % (Auto) (13.4-35.0) % [place] % (Auto) (0.0-7.3) % Lymph # (1.2-5.4) K/mm3 [place] # (0.0-0.8) K/mm3 Seg Neutrophils % (40.0-70.0) % Seg Neutrophils # (1.8-7.7) K/mm3 PT (12.2-14.9) Sec. INR (0.87-1.13) Heparin Anti-Xa Level < 0.10 L (0.3-0.7) U.I./ml POC ABG pH (7.35-7.45) POC ABG pCO2 (35-45) BUN (9-20) mg/dL Glucose (75-100) mg/dL POC Glucose 159 H 134 H (70-105) Calcium (8.4-10.2) mg/dL 04/19/16 04/19/16 04/19/16 Range/Units 04:18 04:18 04:25 WBC 19.0 H (4.5-11.0) K/mm3 RBC 3.58 L (3.65-5.03) M/mm3 Hgb 9.3 L (11.8-15.2) gm/dl Hct 28.8 L (35.5-45.6) % MCV 80 L (84-94) fl MCH 26 L (28-32) pg RDW 15.5 H (13.2-15.2) % Lymph % (Auto) 2.8 L (13.4-35.0) % [place] % (Auto) 7.4 H (0.0-7.3) % Lymph # 0.5 L (1.2-5.4) K/mm3 [place] # 1.4 H (0.0-0.8) K/mm3 Seg Neutrophils % 89.4 H (40.0-70.0) % Seg Neutrophils # 17.0 H (1.8-7.7) K/mm3 PT (12.2-14.9) Sec. INR (0.87-1.13) Heparin Anti-Xa Level (0.3-0.7) U.I./ml POC ABG pH 7.527 H (7.35-7.45) POC ABG pCO2 27.1 L (35-45) BUN 22 H (9-20) mg/dL Glucose 215 H (75-100) mg/dL POC Glucose (70-105) Calcium 8.0 L (8.4-10.2) mg/dL 04/19/16 04/19/16 04/19/16 Range/Units 05:45 08:10 14:08 WBC (4.5-11.0) K/mm3 RBC (3.65-5.03) M/mm3 Hgb (11.8-15.2) gm/dl Hct (35.5-45.6) % MCV (84-94) fl MCH (28-32) pg RDW (13.2-15.2) % Lymph % (Auto) (13.4-35.0) % [place] % (Auto) (0.0-7.3) % Lymph # (1.2-5.4) K/mm3 [place] # (0.0-0.8) K/mm3 Seg Neutrophils % (40.0-70.0) % Seg Neutrophils # (1.8-7.7) K/mm3 PT 22.1 H (12.2-14.9) Sec. INR 1.93 H (0.87-1.13) Heparin Anti-Xa Level 0.17 L (0.3-0.7) U.I./ml POC ABG pH (7.35-7.45) POC ABG pCO2 (35-45) BUN (9-20) mg/dL Glucose (75-100) mg/dL POC Glucose 196 H 318 H (70-105) Calcium (8.4-10.2) mg/dL Diabetes panel 04/19/16 Range/Units 04:18 Sodium 139 (137-145) mmol/L Potassium 3.8 (3.6-5.0) mmol/L Chloride 102.2 (98-107) mmol/L Carbon Dioxide 22 (22-30) mmol/L BUN 22 H (9-20) mg/dL Creatinine 1.3 (0.8-1.5) mg/dL Glucose 215 H (75-100) mg/dL Calcium 8.0 L (8.4-10.2) mg/dL Calcium panel 04/19/16 Range/Units 04:18 Calcium 8.0 L (8.4-10.2) mg/dL Pituitary panel 04/19/16 Range/Units 04:18 Sodium 139 (137-145) mmol/L Potassium 3.8 (3.6-5.0) mmol/L Chloride 102.2 (98-107) mmol/L Carbon Dioxide 22 (22-30) mmol/L BUN 22 H (9-20) mg/dL Creatinine 1.3 (0.8-1.5) mg/dL Glucose 215 H (75-100) mg/dL Calcium 8.0 L (8.4-10.2) mg/dL Adrenal panel 04/19/16 Range/Units 04:18 Sodium 139 (137-145) mmol/L Potassium 3.8 (3.6-5.0) mmol/L Chloride 102.2 (98-107) mmol/L Carbon Dioxide 22 (22-30) mmol/L BUN 22 H (9-20) mg/dL Creatinine 1.3 (0.8-1.5) mg/dL Glucose 215 H (75-100) mg/dL Calcium 8.0 L (8.4-10.2) mg/dL Assessment and Plan 61M with respiratory failure, encephalopathy, stroke 1. The patient's vent settings are currently at FIO2 of .40 and PEEP 10. Ideally , PEEP should be 5 or less. We will contact his family and schedule the tracheostomy at the next available and appropriate time. Anticaogulation will have to be held for the procedure.
[2016-04-19] MEDS: NACL 0.9% 1000 ML 1,000 ML IV SCH (20:19)
[2016-04-20] MEDS: DUONEB 0.5 MG-3 MG/3 ML SOLN IH SCH ×4 (01:46→20:07)
[2016-04-20 04:31] LABS: Basophils % (Auto) 0.2 % (0.0-1.8); Eosinophils % (Auto) 0.2 % (0.0-4.3); Hematocrit 25.7 % (35.5-45.6); Hemoglobin 8.4 gm/dl (11.8-15.2); Mean Corpuscular HGB Conc 33 % (32-34); Mean Corpuscular Hemoglobin 26 pg (28-32); Mean Corpuscular Volume 80 fl (84-94); Platelet Count 215 K/mm3 (140-440); Red Blood Count 3.19 M/mm3 (3.65-5.03); Red Cell Distribution Width 15.9 % (13.2-15.2); White Blood Count 18.5 K/mm3 (4.5-11.0)
[2016-04-20 04:41] LABS: INR 1.92 (0.87-1.13)
[2016-04-20 04:44] LABS: BUN/Creatinine Ratio 14.07; Chloride 101.8 mmol/L (98-107); Potassium 3.8 mmol/L (3.6-5.0)
[2016-04-20 05:12] LABS: ISTAT Base Excess -4; ISTAT HCO3 19.5; ISTAT PCO2 26.5 (35-45); ISTAT PH 7.474 (7.35-7.45); ISTAT PO2 89 (80-105); ISTAT SO2 98; ISTAT TCO2 20
[2016-04-20] MEDS: NOVOLOG SUB-Q SCH ×3 (05:56→18:24)
[2016-04-20] MEDS: NORMODYNE PO SCH ×3 (08:10→21:53)
[2016-04-20] MEDS: HEPARIN/ 0.45% NACL-25,000 UNIT/500 ML 500 ML IV SCH (08:41)
--- NOTE | 2016-04-20 09:02 | XRay Report ---
Portable chest: Comparison is made to the prior study of April 19. There is mild central vascular congestion which is essentially unchanged. There is mild enlargement of the heart. The endotracheal tube is in good position. The right PICC line tip is still in the right axilla. Impression: No recent change.
--- NOTE | 2016-04-20 09:25 | Progress Note ---
Assessment and Plan - Patient Problems (1) Altered mental status Current Visit: Yes Status: Acute Qualifiers: Altered mental status type: unspecified Qualified Code(s): R41.82 - Altered mental status, unspecified (2) CHF (congestive heart failure), NYHA class III Current Visit: Yes Status: Acute (3) CVA (cerebral vascular accident) Current Visit: Yes Status: Acute (4) DVT prophylaxis Current Visit: Yes Status: Acute Subjective Date of service: 04/20/16 Principal diagnosis: CVA Objective - Constitutional Vitals: Vital Signs - 12hr 04/19/16 04/19/16 04/19/16 21:30 22:00 22:18 Temperature Pulse Rate 82 81 78 Pulse Rate [ Anterior Bilateral Throughout] Pulse Rate [ Bilateral Throughout] Pulse Rate [ From Monitor] Respiratory 14 29 H 14 Rate Respiratory Rate [Anterior Bilateral Throughout] Respiratory Rate [Bilateral Throughout] Blood Pressure 117/74 111/74 109/67 O2 Sat by Pulse 100 100 100 Oximetry 04/19/16 04/19/16 04/19/16 22:30 23:00 23:04 Temperature Pulse Rate 77 86 81 Pulse Rate [ Anterior Bilateral Throughout] Pulse Rate [ Bilateral Throughout] Pulse Rate [ From Monitor] Respiratory 16 27 H 26 H Rate Respiratory Rate [Anterior Bilateral Throughout] Respiratory Rate [Bilateral Throughout] Blood Pressure 114/68 120/75 120/75 O2 Sat by Pulse 100 100 100 Oximetry 04/19/16 04/19/16 04/20/16 23:30 23:40 00:00 Temperature 98.7 F Pulse Rate 74 73 Pulse Rate [ Anterior Bilateral Throughout] Pulse Rate [ Bilateral Throughout] Pulse Rate [ 76 From Monitor] Respiratory 23 22 Rate Respiratory Rate [Anterior Bilateral Throughout] Respiratory Rate [Bilateral Throughout] Blood Pressure 92/56 90/54 O2 Sat by Pulse 100 100 Oximetry 04/20/16 04/20/16 04/20/16 00:30 00:47 01:00 Temperature Pulse Rate 78 78 77 Pulse Rate [ Anterior Bilateral Throughout] Pulse Rate [ Bilateral Throughout] Pulse Rate [ From Monitor] Respiratory 24 20 14 Rate Respiratory Rate [Anterior Bilateral Throughout] Respiratory Rate [Bilateral Throughout] Blood Pressure 104/67 110/66 112/67 O2 Sat by Pulse 100 100 100 Oximetry 04/20/16 04/20/16 04/20/16 01:04 01:30 01:46 Temperature Pulse Rate 77 77 Pulse Rate [ 78 Anterior Bilateral Throughout] Pulse Rate [ Bilateral Throughout] Pulse Rate [ From Monitor] Respiratory 14 20 Rate Respiratory 14 Rate [Anterior Bilateral Throughout] Respiratory Rate [Bilateral Throughout] Blood Pressure 112/67 105/63 O2 Sat by Pulse 100 100 Oximetry 04/20/16 04/20/16 04/20/16 01:47 01:57 01:59 Temperature Pulse Rate 88 78 Pulse Rate [ 76 Anterior Bilateral Throughout] Pulse Rate [ Bilateral Throughout] Pulse Rate [ From Monitor] Respiratory 37 H Rate Respiratory 14 Rate [Anterior Bilateral Throughout] Respiratory Rate [Bilateral Throughout] Blood Pressure 98/61 98/61 O2 Sat by Pulse 100 100 Oximetry 04/20/16 04/20/16 04/20/16 02:00 02:30 03:00 Temperature Pulse Rate 78 76 77 Pulse Rate [ Anterior Bilateral Throughout] Pulse Rate [ Bilateral Throughout] Pulse Rate [ From Monitor] Respiratory 14 18 21 Rate Respiratory Rate [Anterior Bilateral Throughout] Respiratory Rate [Bilateral Throughout] Blood Pressure 96/57 98/58 92/56 O2 Sat by Pulse 100 100 100 Oximetry 04/20/16 04/20/16 04/20/16 03:20 03:30 04:00 Temperature Pulse Rate 79 82 96 H Pulse Rate [ Anterior Bilateral Throughout] Pulse Rate [ Bilateral Throughout] Pulse Rate [ 88 From Monitor] Respiratory 17 27 H 19 Rate Respiratory Rate [Anterior Bilateral Throughout] Respiratory Rate [Bilateral Throughout] Blood Pressure 96/57 107/63 110/70 O2 Sat by Pulse 100 100 100 Oximetry 04/20/16 04/20/16 04/20/16 04:06 04:23 04:30 Temperature 99.6 F Pulse Rate 93 H 83 Pulse Rate [ Anterior Bilateral Throughout] Pulse Rate [ Bilateral Throughout] Pulse Rate [ From Monitor] Respiratory 29 H 22 Rate Respiratory Rate [Anterior Bilateral Throughout] Respiratory Rate [Bilateral Throughout] Blood Pressure 140/101 95/57 O2 Sat by Pulse 100 100 Oximetry 04/20/16 04/20/16 04/20/16 05:00 05:02 05:30 Temperature Pulse Rate 87 87 88 Pulse Rate [ Anterior Bilateral Throughout] Pulse Rate [ Bilateral Throughout] Pulse Rate [ From Monitor] Respiratory 23 24 23 Rate Respiratory Rate [Anterior Bilateral Throughout] Respiratory Rate [Bilateral Throughout] Blood Pressure 105/65 105/65 115/68 O2 Sat by Pulse 100 100 100 Oximetry 04/20/16 04/20/16 04/20/16 05:31 06:00 06:02 Temperature Pulse Rate 87 87 87 Pulse Rate [ Anterior Bilateral Throughout] Pulse Rate [ Bilateral Throughout] Pulse Rate [ From Monitor] Respiratory 17 22 Rate Respiratory Rate [Anterior Bilateral Throughout] Respiratory Rate [Bilateral Throughout] Blood Pressure 107/66 108/63 108/63 O2 Sat by Pulse 100 100 100 Oximetry 04/20/16 04/20/16 04/20/16 06:30 07:00 07:50 Temperature Pulse Rate 90 95 H Pulse Rate [ Anterior Bilateral Throughout] Pulse Rate [ 88 Bilateral Throughout] Pulse Rate [ From Monitor] Respiratory 22 26 H Rate Respiratory Rate [Anterior Bilateral Throughout] Respiratory 16 Rate [Bilateral Throughout] Blood Pressure 116/70 128/76 O2 Sat by Pulse 100 100 Oximetry 04/20/16 04/20/16 04/20/16 08:00 08:06 08:07 Temperature 99.4 F Pulse Rate 88 Pulse Rate [ Anterior Bilateral Throughout] Pulse Rate [ 88 Bilateral Throughout] Pulse Rate [ From Monitor] Respiratory Rate Respiratory Rate [Anterior Bilateral Throughout] Respiratory 24 Rate [Bilateral Throughout] Blood Pressure 107/70 O2 Sat by Pulse 100 Oximetry General appearance: Present: no acute distress, well-nourished - EENT Eyes: PERRL, EOM intact ENT: hearing intact, clear oral mucosa Ears: bilateral: normal - Neck Neck: supple, normal ROM - Respiratory Respiratory effort: normal Respiratory: bilateral: CTA - Breasts Breasts: normal - Cardiovascular Rhythm: regular Heart Sounds: Present: S1 & S2. Absent: gallop, rub Extremities: pulses intact, No edema, normal color, Full ROM - Gastrointestinal General gastrointestinal: Present: soft, non-tender, non-distended, normal bowel sounds - Genitourinary Male genitourinary: normal - Integumentary Integumentary: clear, warm, dry - Musculoskeletal Musculoskeletal: 1, strength equal bilaterally - Neurologic Neurologic: moves all extremities - Psychiatric Psychiatric: memory intact, appropriate mood/affect, intact judgment & insight - Labs CBC & Chem 7: 04/20/16 03:55 04/20/16 03:55 Labs: Abnormal lab results 04/19/16 04/19/16 04/20/16 Range/Units 14:08 17:27 03:55 WBC (4.5-11.0) K/mm3 RBC (3.65-5.03) M/mm3 Hgb (11.8-15.2) gm/dl Hct (35.5-45.6) % MCV (84-94) fl MCH (28-32) pg RDW (13.2-15.2) % Lymph % (Auto) (13.4-35.0) % [place] % (Auto) (0.0-7.3) % Lymph # (1.2-5.4) K/mm3 [place] # (0.0-0.8) K/mm3 Seg Neutrophils % (40.0-70.0) % Seg Neutrophils # (1.8-7.7) K/mm3 PT 22.0 H (12.2-14.9) Sec. INR 1.92 H (0.87-1.13) Heparin Anti-Xa Level 0.14 L (0.3-0.7) U.I./ml POC ABG pH (7.35-7.45) POC ABG pCO2 (35-45) Carbon Dioxide (22-30) mmol/L BUN (9-20) mg/dL Creatinine (0.8-1.5) mg/dL Glucose (75-100) mg/dL POC Glucose 318 H 230 H (70-105) Calcium (8.4-10.2) mg/dL 04/20/16 04/20/16 04/20/16 Range/Units 03:55 03:55 04:16 WBC 18.5 H (4.5-11.0) K/mm3 RBC 3.19 L (3.65-5.03) M/mm3 Hgb 8.4 L (11.8-15.2) gm/dl Hct 25.7 L (35.5-45.6) % MCV 80 L (84-94) fl MCH 26 L (28-32) pg RDW 15.9 H (13.2-15.2) % Lymph % (Auto) 4.3 L (13.4-35.0) % [place] % (Auto) 10.1 H (0.0-7.3) % Lymph # 0.8 L (1.2-5.4) K/mm3 [place] # 1.9 H (0.0-0.8) K/mm3 Seg Neutrophils % 85.2 H (40.0-70.0) % Seg Neutrophils # 15.8 H (1.8-7.7) K/mm3 PT (12.2-14.9) Sec. INR (0.87-1.13) Heparin Anti-Xa Level (0.3-0.7) U.I./ml POC ABG pH 7.474 H (7.35-7.45) POC ABG pCO2 26.5 L (35-45) Carbon Dioxide 18 L (22-30) mmol/L BUN 38 H (9-20) mg/dL Creatinine 2.7 H D (0.8-1.5) mg/dL Glucose 159 H (75-100) mg/dL POC Glucose (70-105) Calcium 8.0 L (8.4-10.2) mg/dL 04/20/16 Range/Units 05:52 WBC (4.5-11.0) K/mm3 RBC (3.65-5.03) M/mm3 Hgb (11.8-15.2) gm/dl Hct (35.5-45.6) % MCV (84-94) fl MCH (28-32) pg RDW (13.2-15.2) % Lymph % (Auto) (13.4-35.0) % [place] % (Auto) (0.0-7.3) % Lymph # (1.2-5.4) K/mm3 [place] # (0.0-0.8) K/mm3 Seg Neutrophils % (40.0-70.0) % Seg Neutrophils # (1.8-7.7) K/mm3 PT (12.2-14.9) Sec. INR (0.87-1.13) Heparin Anti-Xa Level (0.3-0.7) U.I./ml POC ABG pH (7.35-7.45) POC ABG pCO2 (35-45) Carbon Dioxide (22-30) mmol/L BUN (9-20) mg/dL Creatinine (0.8-1.5) mg/dL Glucose (75-100) mg/dL POC Glucose 214 H (70-105) Calcium (8.4-10.2) mg/dL
[2016-04-20] MEDS: REGLAN IV PRN (09:53)
[2016-04-20] MEDS: KEPPRA PO SCH ×2 (10:00→21:53)
[2016-04-20] MEDS: CORDARONE PO SCH (10:00)
[2016-04-20] MEDS: BABY ASPIRIN PO SCH (10:00)
[2016-04-20] MEDS: PEPCID PO SCH ×2 (10:00→21:54)
[2016-04-20] MEDS: ZESTRIL PO SCH ×2 (10:00→21:53)
--- NOTE | 2016-04-20 11:23 | Progress Note ---
Assessment and Plan 61 y/o male with acute encephalopathy, secondary to embolic strokes, now with acute respiratory failure requiring re-intubation. 1. PEEP has always been at 5, never more than that. Surgery may have seen the PSV above PEEP but that mode was not activated. Numbers are ok for trach based on surgery note. 2. Off pressors. Monitor BP 3. Afebrile, only leukocytosis. CXR is clear. Hold on any abx therapy at this time and monitor white count 4. Hold warfarin, continue heparin. Will restart once trach in place 5. Repeating chemistry from this am. Will also send Urine Na and Urine Cr. May need renal ultrasound if the labs are correct 6. KUB appears to show constipation with some dilated loops of bowel. Not on pain meds. Will await official read but may need laxative vs promotility agent 7. Overall prognosis is guarded. Spoke to on phone about trach. She does not really understand why he is not waking up. i attempted to explain but neurology should speak more in depth with her. She also did not seem to understand the stroke/strokes that he has had. CCT 31 minutes. Subjective Date of service: 04/20/16 Principal diagnosis: CVA Interval history: No acute events last night. Patient having increased residuals and not tolerating tube feeds. Also, large jump in Cr in the last 24 hours. Remainder is negative. Surgery evaluated patient yesterday as well. Objective Vital Signs - 12hr 04/19/16 04/19/16 04/20/16 23:30 23:40 00:00 Temperature 98.7 F Pulse Rate 74 73 Pulse Rate [ Anterior Bilateral Throughout] Pulse Rate [ Bilateral Throughout] Pulse Rate [ 76 From Monitor] Respiratory 23 22 Rate Respiratory Rate [Anterior Bilateral Throughout] Respiratory Rate [Bilateral Throughout] Blood Pressure 92/56 90/54 O2 Sat by Pulse 100 100 Oximetry 04/20/16 04/20/16 04/20/16 00:30 00:47 01:00 Temperature Pulse Rate 78 78 77 Pulse Rate [ Anterior Bilateral Throughout] Pulse Rate [ Bilateral Throughout] Pulse Rate [ From Monitor] Respiratory 24 20 14 Rate Respiratory Rate [Anterior Bilateral Throughout] Respiratory Rate [Bilateral Throughout] Blood Pressure 104/67 110/66 112/67 O2 Sat by Pulse 100 100 100 Oximetry 04/20/16 04/20/16 04/20/16 01:04 01:30 01:46 Temperature Pulse Rate 77 77 Pulse Rate [ 78 Anterior Bilateral Throughout] Pulse Rate [ Bilateral Throughout] Pulse Rate [ From Monitor] Respiratory 14 20 Rate Respiratory 14 Rate [Anterior Bilateral Throughout] Respiratory Rate [Bilateral Throughout] Blood Pressure 112/67 105/63 O2 Sat by Pulse 100 100 Oximetry 04/20/16 04/20/16 04/20/16 01:47 01:57 01:59 Temperature Pulse Rate 88 78 Pulse Rate [ 76 Anterior Bilateral Throughout] Pulse Rate [ Bilateral Throughout] Pulse Rate [ From Monitor] Respiratory 37 H Rate Respiratory 14 Rate [Anterior Bilateral Throughout] Respiratory Rate [Bilateral Throughout] Blood Pressure 98/61 98/61 O2 Sat by Pulse 100 100 Oximetry 04/20/16 04/20/16 04/20/16 02:00 02:30 03:00 Temperature Pulse Rate 78 76 77 Pulse Rate [ Anterior Bilateral Throughout] Pulse Rate [ Bilateral Throughout] Pulse Rate [ From Monitor] Respiratory 14 18 21 Rate Respiratory Rate [Anterior Bilateral Throughout] Respiratory Rate [Bilateral Throughout] Blood Pressure 96/57 98/58 92/56 O2 Sat by Pulse 100 100 100 Oximetry 04/20/16 04/20/16 04/20/16 03:20 03:30 04:00 Temperature Pulse Rate 79 82 96 H Pulse Rate [ Anterior Bilateral Throughout] Pulse Rate [ Bilateral Throughout] Pulse Rate [ 88 From Monitor] Respiratory 17 27 H 19 Rate Respiratory Rate [Anterior Bilateral Throughout] Respiratory Rate [Bilateral Throughout] Blood Pressure 96/57 107/63 110/70 O2 Sat by Pulse 100 100 100 Oximetry 04/20/16 04/20/16 04/20/16 04:06 04:23 04:30 Temperature 99.6 F Pulse Rate 93 H 83 Pulse Rate [ Anterior Bilateral Throughout] Pulse Rate [ Bilateral Throughout] Pulse Rate [ From Monitor] Respiratory 29 H 22 Rate Respiratory Rate [Anterior Bilateral Throughout] Respiratory Rate [Bilateral Throughout] Blood Pressure 140/101 95/57 O2 Sat by Pulse 100 100 Oximetry 04/20/16 04/20/16 04/20/16 05:00 05:02 05:30 Temperature Pulse Rate 87 87 88 Pulse Rate [ Anterior Bilateral Throughout] Pulse Rate [ Bilateral Throughout] Pulse Rate [ From Monitor] Respiratory 23 24 23 Rate Respiratory Rate [Anterior Bilateral Throughout] Respiratory Rate [Bilateral Throughout] Blood Pressure 105/65 105/65 115/68 O2 Sat by Pulse 100 100 100 Oximetry 1204/20/16 04/20/16 05:31 06:00 06:02 Temperature Pulse Rate 87 87 87 Pulse Rate [ Anterior Bilateral Throughout] Pulse Rate [ Bilateral Throughout] Pulse Rate [ From Monitor] Respiratory 17 22 Rate Respiratory Rate [Anterior Bilateral Throughout] Respiratory Rate [Bilateral Throughout] Blood Pressure 107/66 108/63 108/63 O2 Sat by Pulse 100 100 100 Oximetry 04/20/16 04/20/16 04/20/16 06:30 07:00 07:50 Temperature Pulse Rate 90 95 H Pulse Rate [ Anterior Bilateral Throughout] Pulse Rate [ 88 Bilateral Throughout] Pulse Rate [ From Monitor] Respiratory 22 26 H Rate Respiratory Rate [Anterior Bilateral Throughout] Respiratory 16 Rate [Bilateral Throughout] Blood Pressure 116/70 128/76 O2 Sat by Pulse 100 100 Oximetry 04/20/16 04/20/16 04/20/16 08:00 08:06 08:07 Temperature 99.4 F Pulse Rate 88 Pulse Rate [ Anterior Bilateral Throughout] Pulse Rate [ 88 Bilateral Throughout] Pulse Rate [ From Monitor] Respiratory Rate Respiratory Rate [Anterior Bilateral Throughout] Respiratory 24 Rate [Bilateral Throughout] Blood Pressure 107/70 O2 Sat by Pulse 100 Oximetry Constitutional: no acute distress Eyes: non-icteric ENT: other (orally intubated and sedated) Neck: supple Effort: normal Ascultation: Bilateral: clear, rhonchi (occasional) Percussion: Bilateral: not dull Cardiovascular: regular rate and rhythm, irregular rhythm Gastrointestinal: normoactive bowel sounds, soft, non-tender Extremities: no cyanosis, no edema Neurologic: other (RASS 0 ) CBC and BMP: 04/20/16 03:55 04/20/16 03:55 ABG, PT/INR, D-dimer: ABG POC ABG pH 7.474 (7.35-7.45) H 04/20/16 04:16 POC ABG pCO2 26.5 (35-45) L 04/20/16 04:16 POC ABG pO2 89 (80-105) 04/20/16 04:16 POC ABG HCO3 19.5 04/20/16 04:16 POC ABG Total CO2 20 04/20/16 04:16 POC ABG O2 Sat 98 04/20/16 04:16 PT/INR, D-dimer PT 22.0 Sec. (12.2-14.9) H 04/20/16 03:55 INR 1.92 (0.87-1.13) H 04/20/16 03:55 Abnormal lab findings: Abnormal Labs 03/24/16 03/24/16 03/24/16 17:58 20:25 23:23 WBC RBC Hgb Hct MCV MCH MCHC RDW Plt Count Lymph % (Auto) [place] % (Auto) Lymph # [place] # Baso # Seg Neutrophils % Seg Neuts % (Manual) Lymphocytes % (Manual) Seg Neutrophils # Seg Neutrophils # Man Lymphocytes # (Manual) Monocytes # (Manual) PT INR APTT Heparin Anti-Xa Level POC ABG pH POC ABG pCO2 POC ABG pO2 Sodium 169 H* Potassium 3.5 L Chloride 130.3 H Carbon Dioxide BUN 28 H Creatinine 1.8 H Glucose POC Glucose 112 H Calcium Phosphorus Lactate Dehydrogenase Total Creatine Kinase NT-Pro-B Natriuret Pep Albumin Aubxm-0-Aeitsweqw Ejoff-7-Ruquohvqo Beta Globulins PEP Interpretation Cholesterol 221 H LDL Cholesterol Direct 146 H 03/25/16 03/25/16 03/25/16 05:56 05:56 05:56 WBC 21.3 H RBC 6.32 H Hgb 16.7 H Hct 52.7 H MCV 83 L MCH 27 L MCHC RDW Plt Count Lymph % (Auto) [place] % (Auto) Lymph # [place] # Baso # Seg Neutrophils % Seg Neuts % (Manual) 91.0 H Lymphocytes % (Manual) 4.0 L Seg Neutrophils # Seg Neutrophils # Man 19.4 H Lymphocytes # (Manual) 0.9 L Monocytes # (Manual) 0.9 H PT INR APTT Heparin Anti-Xa Level POC ABG pH POC ABG pCO2 POC ABG pO2 Sodium 172 H* Potassium 3.5 L Chloride 130.4 H Carbon Dioxide BUN 29 H Creatinine 1.8 H Glucose 187 H POC Glucose Calcium Phosphorus Lactate Dehydrogenase 460 H Total Creatine Kinase NT-Pro-B Natriuret Pep Albumin Pzjbh-9-Lkxhjazpv Lwvcn-5-Rrhgkygok Beta Globulins PEP Interpretation Cholesterol LDL Cholesterol Direct 03/25/16 03/25/16 03/25/16 07:55 12:19 13:00 WBC RBC Hgb Hct MCV MCH MCHC RDW Plt Count Lymph % (Auto) [place] % (Auto) Lymph # [place] # Baso # Seg Neutrophils % Seg Neuts % (Manual) Lymphocytes % (Manual) Seg Neutrophils # Seg Neutrophils # Man Lymphocytes # (Manual) Monocytes # (Manual) PT INR APTT Heparin Anti-Xa Level POC ABG pH POC ABG pCO2 POC ABG pO2 Sodium Potassium Chloride Carbon Dioxide BUN Creatinine Glucose POC Glucose 231 H 314 H Calcium Phosphorus Lactate Dehydrogenase Total Creatine Kinase NT-Pro-B Natriuret Pep Albumin 3.4 L Ilhmq-9-Lwaswgaca 0.4 H Drluk-5-Vwzxgdrmw 1.1 H Beta Globulins 0.6 H PEP Interpretation see below H Cholesterol LDL Cholesterol Direct 03/25/16 03/25/16 03/26/16 16:41 22:45 08:32 WBC RBC Hgb Hct MCV MCH MCHC RDW Plt Count Lymph % (Auto) [place] % (Auto) Lymph # [place] # Baso # Seg Neutrophils % Seg Neuts % (Manual) Lymphocytes % (Manual) Seg Neutrophils # Seg Neutrophils # Man Lymphocytes # (Manual) Monocytes # (Manual) PT INR APTT Heparin Anti-Xa Level POC ABG pH POC ABG pCO2 POC ABG pO2 Sodium Potassium Chloride Carbon Dioxide BUN Creatinine Glucose POC Glucose 444 H 326 H 360 H Calcium Phosphorus Lactate Dehydrogenase Total Creatine Kinase NT-Pro-B Natriuret Pep Albumin Medga-8-Tkujfkohe Haboo-1-Ijeqcinix Beta Globulins PEP Interpretation Cholesterol LDL Cholesterol Direct 03/26/16 03/26/16 03/26/16 12:38 15:33 15:47 WBC RBC Hgb Hct MCV MCH MCHC RDW Plt Count Lymph % (Auto) [place] % (Auto) Lymph # [place] # Baso # Seg Neutrophils % Seg Neuts % (Manual) Lymphocytes % (Manual) Seg Neutrophils # Seg Neutrophils # Man Lymphocytes # (Manual) Monocytes # (Manual) PT INR APTT Heparin Anti-Xa Level POC ABG pH 7.511 H POC ABG pCO2 26.5 L POC ABG pO2 70 L Sodium Potassium Chloride Carbon Dioxide BUN Creatinine Glucose POC Glucose 280 H 174 H Calcium Phosphorus Lactate Dehydrogenase Total Creatine Kinase NT-Pro-B Natriuret Pep Albumin Yotot-7-Vpbkmoyvm Twoii-1-Xmzoihbvn Beta Globulins PEP Interpretation Cholesterol LDL Cholesterol Direct 03/26/16 03/26/16 03/26/16 16:47 16:47 18:51 WBC 14.0 H RBC 5.17 H Hgb Hct MCV MCH 26 L MCHC 31 L RDW Plt Count 139 L Lymph % (Auto) [place] % (Auto) Lymph # [place] # Baso # Seg Neutrophils % Seg Neuts % (Manual) Lymphocytes % (Manual) Seg Neutrophils # Seg Neutrophils # Man Lymphocytes # (Manual) Monocytes # (Manual) PT INR APTT Heparin Anti-Xa Level POC ABG pH POC ABG pCO2 33.9 L POC ABG pO2 150 H Sodium 164 H* Potassium 3.4 L Chloride 128.5 H Carbon Dioxide BUN 30 H Creatinine 2.2 H Glucose 121 H POC Glucose Calcium 8.1 L Phosphorus Lactate Dehydrogenase Total Creatine Kinase NT-Pro-B Natriuret Pep Albumin Sxlrf-5-Fsqehrttf Zjoza-2-Bjaqgihxd Beta Globulins PEP Interpretation Cholesterol LDL Cholesterol Direct 03/27/16 03/27/16 03/27/16 02:19 05:47 06:02 WBC RBC Hgb Hct MCV MCH MCHC RDW Plt Count Lymph % (Auto) [place] % (Auto) Lymph # [place] # Baso # Seg Neutrophils % Seg Neuts % (Manual) Lymphocytes % (Manual) Seg Neutrophils # Seg Neutrophils # Man Lymphocytes # (Manual) Monocytes # (Manual) PT INR APTT Heparin Anti-Xa Level POC ABG pH POC ABG pCO2 27.3 L 30.3 L POC ABG pO2 50 L 112 H Sodium 158 H Potassium Chloride 126.7 H Carbon Dioxide 20 L BUN 25 H Creatinine 1.7 H Glucose POC Glucose Calcium 7.0 L Phosphorus Lactate Dehydrogenase Total Creatine Kinase NT-Pro-B Natriuret Pep Albumin Qoovc-2-Yxiomdglj Geriv-9-Zlgqyblsf Beta Globulins PEP Interpretation Cholesterol LDL Cholesterol Direct 03/27/16 03/27/16 03/27/16 07:51 09:20 11:45 WBC 14.2 H RBC Hgb Hct MCV 83 L MCH 27 L MCHC RDW Plt Count 113 L Lymph % (Auto) [place] % (Auto) Lymph # [place] # Baso # Seg Neutrophils % Seg Neuts % (Manual) Lymphocytes % (Manual) Seg Neutrophils # Seg Neutrophils # Man Lymphocytes # (Manual) Monocytes # (Manual) PT INR APTT Heparin Anti-Xa Level POC ABG pH POC ABG pCO2 POC ABG pO2 Sodium Potassium Chloride Carbon Dioxide BUN Creatinine Glucose POC Glucose 124 H 241 H Calcium Phosphorus Lactate Dehydrogenase Total Creatine Kinase NT-Pro-B Natriuret Pep Albumin Gerdn-1-Kjygpbaah Bjdpu-2-Xavxbsrjo Beta Globulins PEP Interpretation Cholesterol LDL Cholesterol Direct 03/27/16 03/27/16 03/28/16 16:39 22:03 03:29 WBC RBC Hgb Hct MCV MCH MCHC RDW Plt Count Lymph % (Auto) [place] % (Auto) Lymph # [place] # Baso # Seg Neutrophils % Seg Neuts % (Manual) Lymphocytes % (Manual) Seg Neutrophils # Seg Neutrophils # Man Lymphocytes # (Manual) Monocytes # (Manual) PT INR APTT Heparin Anti-Xa Level POC ABG pH POC ABG pCO2 POC ABG pO2 Sodium Potassium Chloride Carbon Dioxide BUN Creatinine Glucose POC Glucose 266 H 167 H 241 H Calcium Phosphorus Lactate Dehydrogenase Total Creatine Kinase NT-Pro-B Natriuret Pep Albumin Iypxw-7-Tqyiqyhyt Qyqjs-6-Slrjoaqpy Beta Globulins PEP Interpretation Cholesterol LDL Cholesterol Direct 03/28/16 03/28/16 03/28/16 05:00 05:00 05:00 WBC RBC Hgb Hct MCV 83 L MCH 27 L MCHC RDW Plt Count 106 L Lymph % (Auto) [place] % (Auto) 10.1 H Lymph # [place] # 1.0 H Baso # Seg Neutrophils % 75.1 H Seg Neuts % (Manual) Lymphocytes % (Manual) Seg Neutrophils # Seg Neutrophils # Man Lymphocytes # (Manual) Monocytes # (Manual) PT INR APTT Heparin Anti-Xa Level POC ABG pH POC ABG pCO2 POC ABG pO2 Sodium 147 H D Potassium 3.1 L D Chloride 112.3 H Carbon Dioxide 21 L BUN Creatinine Glucose 208 H POC Glucose Calcium 7.0 L Phosphorus 2.2 L Lactate Dehydrogenase Total Creatine Kinase NT-Pro-B Natriuret Pep Albumin Usfcm-7-Atyttnhwm Rrnjr-2-Vxhrziarq Beta Globulins PEP Interpretation Cholesterol LDL Cholesterol Direct 03/28/16 03/28/16 03/28/16 05:14 08:41 10:56 WBC RBC Hgb Hct MCV MCH MCHC RDW Plt Count Lymph % (Auto) [place] % (Auto) Lymph # [place] # Baso # Seg Neutrophils % Seg Neuts % (Manual) Lymphocytes % (Manual) Seg Neutrophils # Seg Neutrophils # Man Lymphocytes # (Manual) Monocytes # (Manual) PT INR APTT Heparin Anti-Xa Level POC ABG pH 7.457 H POC ABG pCO2 29.7 L 27.7 L POC ABG pO2 Sodium Potassium Chloride Carbon Dioxide BUN Creatinine Glucose POC Glucose 228 H Calcium Phosphorus Lactate Dehydrogenase Total Creatine Kinase NT-Pro-B Natriuret Pep Albumin Pfgzx-9-Edfboehfy Rxmkl-1-Anpelnklq Beta Globulins PEP Interpretation Cholesterol LDL Cholesterol Direct 03/28/16 03/28/16 03/28/16 11:37 13:29 16:22 WBC RBC Hgb Hct MCV MCH MCHC RDW Plt Count Lymph % (Auto) [place] % (Auto) Lymph # [place] # Baso # Seg Neutrophils % Seg Neuts % (Manual) Lymphocytes % (Manual) Seg Neutrophils # Seg Neutrophils # Man Lymphocytes # (Manual) Monocytes # (Manual) PT INR APTT Heparin Anti-Xa Level POC ABG pH POC ABG pCO2 POC ABG pO2 Sodium Potassium Chloride Carbon Dioxide BUN Creatinine Glucose POC Glucose 226 H 200 H Calcium Phosphorus Lactate Dehydrogenase Total Creatine Kinase 356 H NT-Pro-B Natriuret Pep Albumin Lwqpo-7-Jvcwnccsz Lphss-6-Tnvfwxijk Beta Globulins PEP Interpretation Cholesterol LDL Cholesterol Direct 03/28/16 03/29/16 03/29/16 21:48 04:50 04:50 WBC RBC Hgb 11.5 L Hct 35.3 L MCV 81 L MCH 26 L MCHC RDW Plt Count 97 L Lymph % (Auto) [place] % (Auto) 11.7 H Lymph # [place] # 1.1 H Baso # Seg Neutrophils % Seg Neuts % (Manual) Lymphocytes % (Manual) Seg Neutrophils # Seg Neutrophils # Man Lymphocytes # (Manual) Monocytes # (Manual) PT INR APTT Heparin Anti-Xa Level POC ABG pH POC ABG pCO2 POC ABG pO2 Sodium 136 L D Potassium 3.3 L Chloride Carbon Dioxide 20 L BUN Creatinine Glucose 386 H POC Glucose 188 H Calcium 6.8 L Phosphorus 1.6 L D Lactate Dehydrogenase Total Creatine Kinase NT-Pro-B Natriuret Pep Albumin Mpwhg-9-Dcydffpdk Sazpk-4-Tailanesp Beta Globulins PEP Interpretation Cholesterol LDL Cholesterol Direct 03/29/16 03/29/16 03/29/16 08:10 11:12 16:09 WBC RBC Hgb Hct MCV MCH MCHC RDW Plt Count Lymph % (Auto) [place] % (Auto) Lymph # [place] # Baso # Seg Neutrophils % Seg Neuts % (Manual) Lymphocytes % (Manual) Seg Neutrophils # Seg Neutrophils # Man Lymphocytes # (Manual) Monocytes # (Manual) PT INR APTT Heparin Anti-Xa Level POC ABG pH POC ABG pCO2 POC ABG pO2 Sodium Potassium Chloride Carbon Dioxide BUN Creatinine Glucose POC Glucose 230 H 180 H 46 L Calcium Phosphorus Lactate Dehydrogenase Total Creatine Kinase NT-Pro-B Natriuret Pep Albumin Ahusi-6-Jqxuqxzdm Zjodx-3-Pjbnozyao Beta Globulins PEP Interpretation Cholesterol LDL Cholesterol Direct 03/29/16 03/29/16 03/30/16 16:12 18:15 02:53 WBC RBC Hgb Hct MCV MCH MCHC RDW Plt Count Lymph % (Auto) [place] % (Auto) Lymph # [place] # Baso # Seg Neutrophils % Seg Neuts % (Manual) Lymphocytes % (Manual) Seg Neutrophils # Seg Neutrophils # Man Lymphocytes # (Manual) Monocytes # (Manual) PT INR APTT Heparin Anti-Xa Level POC ABG pH POC ABG pCO2 POC ABG pO2 Sodium Potassium Chloride Carbon Dioxide BUN Creatinine Glucose POC Glucose 52 L 118 H 130 H Calcium Phosphorus Lactate Dehydrogenase Total Creatine Kinase NT-Pro-B Natriuret Pep Albumin Vpsbd-1-Ccxesjhht Jzxqo-6-Paepxeidg Beta Globulins PEP Interpretation Cholesterol LDL Cholesterol Direct 03/30/16 03/30/16 03/30/16 04:00 04:00 05:29 WBC RBC Hgb Hct MCV 81 L MCH 26 L MCHC RDW Plt Count 116 L Lymph % (Auto) 10.8 L [place] % (Auto) 13.1 H Lymph # 1.0 L [place] # 1.3 H Baso # Seg Neutrophils % 74.2 H Seg Neuts % (Manual) Lymphocytes % (Manual) Seg Neutrophils # Seg Neutrophils # Man Lymphocytes # (Manual) Monocytes # (Manual) PT INR APTT Heparin Anti-Xa Level POC ABG pH 7.522 H POC ABG pCO2 22.7 L POC ABG pO2 137 H Sodium 147 H D Potassium Chloride 115.5 H Carbon Dioxide 20 L BUN Creatinine Glucose 116 H POC Glucose Calcium 7.6 L Phosphorus 2.3 L D Lactate Dehydrogenase Total Creatine Kinase NT-Pro-B Natriuret Pep Albumin Oclyp-9-Znxdsankw Xebnz-0-Qmtojchow Beta Globulins PEP Interpretation Cholesterol LDL Cholesterol Direct 03/30/16 03/30/16 03/30/16 05:47 08:05 08:59 WBC RBC Hgb Hct MCV MCH MCHC RDW Plt Count Lymph % (Auto) [place] % (Auto) Lymph # [place] # Baso # Seg Neutrophils % Seg Neuts % (Manual) Lymphocytes % (Manual) Seg Neutrophils # Seg Neutrophils # Man Lymphocytes # (Manual) Monocytes # (Manual) PT INR APTT Heparin Anti-Xa Level POC ABG pH POC ABG pCO2 26.2 L POC ABG pO2 115 H Sodium Potassium Chloride Carbon Dioxide BUN Creatinine Glucose POC Glucose 138 H 171 H Calcium Phosphorus Lactate Dehydrogenase Total Creatine Kinase NT-Pro-B Natriuret Pep Albumin Kbmft-8-Kvcqxxelw Sqqqz-8-Akadzlmzx Beta Globulins PEP Interpretation Cholesterol LDL Cholesterol Direct 03/30/16 03/30/16 03/30/16 12:11 12:11 16:39 WBC RBC Hgb Hct MCV MCH MCHC RDW Plt Count Lymph % (Auto) [place] % (Auto) Lymph # [place] # Baso # Seg Neutrophils % Seg Neuts % (Manual) Lymphocytes % (Manual) Seg Neutrophils # Seg Neutrophils # Man Lymphocytes # (Manual) Monocytes # (Manual) PT INR APTT Heparin Anti-Xa Level POC ABG pH 7.476 H POC ABG pCO2 29.0 L POC ABG pO2 Sodium Potassium Chloride Carbon Dioxide BUN Creatinine Glucose POC Glucose 142 H 59 L Calcium Phosphorus Lactate Dehydrogenase Total Creatine Kinase NT-Pro-B Natriuret Pep Albumin Mouff-6-Vquwqjcbd Lsrcx-0-Mrsfvyaop Beta Globulins PEP Interpretation Cholesterol LDL Cholesterol Direct 03/30/16 03/30/16 03/31/16 18:41 21:59 05:02 WBC RBC Hgb Hct MCV MCH MCHC RDW Plt Count Lymph % (Auto) [place] % (Auto) Lymph # [place] # Baso # Seg Neutrophils % Seg Neuts % (Manual) Lymphocytes % (Manual) Seg Neutrophils # Seg Neutrophils # Man Lymphocytes # (Manual) Monocytes # (Manual) PT INR APTT Heparin Anti-Xa Level POC ABG pH 7.519 H POC ABG pCO2 21.8 L POC ABG pO2 142 H Sodium Potassium Chloride Carbon Dioxide BUN Creatinine Glucose POC Glucose 145 H 154 H Calcium Phosphorus Lactate Dehydrogenase Total Creatine Kinase NT-Pro-B Natriuret Pep Albumin Dtgys-8-Vcoetkfah Bugrt-9-Jndtbdogx Beta Globulins PEP Interpretation Cholesterol LDL Cholesterol Direct 03/31/16 03/31/16 03/31/16 05:15 05:15 05:15 WBC 13.4 H RBC 5.21 H Hgb Hct MCV 81 L MCH 26 L MCHC RDW Plt Count Lymph % (Auto) 9.5 L [place] % (Auto) 14.0 H Lymph # [place] # 1.9 H Baso # Seg Neutrophils % 75.0 H Seg Neuts % (Manual) Lymphocytes % (Manual) Seg Neutrophils # 10.1 H Seg Neutrophils # Man Lymphocytes # (Manual) Monocytes # (Manual) PT INR APTT Heparin Anti-Xa Level POC ABG pH POC ABG pCO2 POC ABG pO2 Sodium Potassium Chloride 108.5 H Carbon Dioxide 19 L BUN Creatinine Glucose 188 H POC Glucose Calcium Phosphorus Lactate Dehydrogenase Total Creatine Kinase NT-Pro-B Natriuret Pep 1089 H Albumin Fjiuk-3-Olhmfdscj Hwxku-6-Iatrvbigc Beta Globulins PEP Interpretation Cholesterol LDL Cholesterol Direct 03/31/16 03/31/16 03/31/16 07:23 11:12 15:20 WBC RBC Hgb Hct MCV MCH MCHC RDW Plt Count Lymph % (Auto) [place] % (Auto) Lymph # [place] # Baso # Seg Neutrophils % Seg Neuts % (Manual) Lymphocytes % (Manual) Seg Neutrophils # Seg Neutrophils # Man Lymphocytes # (Manual) Monocytes # (Manual) PT INR APTT Heparin Anti-Xa Level POC ABG pH POC ABG pCO2 POC ABG pO2 Sodium Potassium Chloride Carbon Dioxide BUN Creatinine Glucose POC Glucose 233 H 228 H 208 H Calcium Phosphorus Lactate Dehydrogenase Total Creatine Kinase NT-Pro-B Natriuret Pep Albumin Xwewy-7-Arrxqxscu Nqake-6-Vuhalwfut Beta Globulins PEP Interpretation Cholesterol LDL Cholesterol Direct 03/31/16 04/01/16 04/01/16 21:27 04:41 05:35 WBC 12.1 H RBC Hgb Hct MCV 81 L MCH 26 L MCHC RDW Plt Count Lymph % (Auto) 8.5 L [place] % (Auto) 14.0 H Lymph # 1.0 L [place] # 1.7 H Baso # Seg Neutrophils % 76.2 H Seg Neuts % (Manual) Lymphocytes % (Manual) Seg Neutrophils # 9.2 H Seg Neutrophils # Man Lymphocytes # (Manual) Monocytes # (Manual) PT INR APTT Heparin Anti-Xa Level POC ABG pH 7.455 H POC ABG pCO2 31.0 L POC ABG pO2 Sodium Potassium Chloride Carbon Dioxide BUN Creatinine Glucose POC Glucose 162 H Calcium Phosphorus Lactate Dehydrogenase Total Creatine Kinase NT-Pro-B Natriuret Pep Albumin Xfqoa-7-Zqdvglmlo Ysftb-7-Lphwutvei Beta Globulins PEP Interpretation Cholesterol LDL Cholesterol Direct 04/01/16 04/01/16 04/01/16 05:35 08:44 12:49 WBC RBC Hgb Hct MCV MCH MCHC RDW Plt Count Lymph % (Auto) [place] % (Auto) Lymph # [place] # Baso # Seg Neutrophils % Seg Neuts % (Manual) Lymphocytes % (Manual) Seg Neutrophils # Seg Neutrophils # Man Lymphocytes # (Manual) Monocytes # (Manual) PT INR APTT Heparin Anti-Xa Level POC ABG pH POC ABG pCO2 POC ABG pO2 Sodium Potassium Chloride Carbon Dioxide BUN Creatinine Glucose 256 H POC Glucose 257 H 279 H Calcium 8.0 L Phosphorus Lactate Dehydrogenase Total Creatine Kinase NT-Pro-B Natriuret Pep 1205 H Albumin Nnlll-7-Wdshvchow Udqij-5-Dmbzwouup Beta Globulins PEP Interpretation Cholesterol LDL Cholesterol Direct 04/01/16 04/02/16 04/02/16 18:12 00:42 04:17 WBC RBC Hgb Hct MCV MCH MCHC RDW Plt Count Lymph % (Auto) [place] % (Auto) Lymph # [place] # Baso # Seg Neutrophils % Seg Neuts % (Manual) Lymphocytes % (Manual) Seg Neutrophils # Seg Neutrophils # Man Lymphocytes # (Manual) Monocytes # (Manual) PT INR APTT Heparin Anti-Xa Level POC ABG pH 7.582 H POC ABG pCO2 26.8 L POC ABG pO2 Sodium Potassium Chloride Carbon Dioxide BUN Creatinine Glucose POC Glucose 168 H 282 H Calcium Phosphorus Lactate Dehydrogenase Total Creatine Kinase NT-Pro-B Natriuret Pep Albumin Sevpz-1-Xsftoppue Hasze-8-Fqqercmki Beta Globulins PEP Interpretation Cholesterol LDL Cholesterol Direct 04/02/16 04/02/16 04/02/16 05:00 05:00 06:27 WBC 12.4 H RBC Hgb Hct MCV 81 L MCH 26 L MCHC RDW Plt Count Lymph % (Auto) 6.4 L [place] % (Auto) 13.3 H Lymph # 0.8 L [place] # 1.7 H Baso # Seg Neutrophils % 79.4 H Seg Neuts % (Manual) Lymphocytes % (Manual) Seg Neutrophils # 9.9 H Seg Neutrophils # Man Lymphocytes # (Manual) Monocytes # (Manual) PT INR APTT Heparin Anti-Xa Level POC ABG pH POC ABG pCO2 POC ABG pO2 Sodium 146 H Potassium Chloride Carbon Dioxide BUN Creatinine Glucose 334 H POC Glucose 317 H Calcium 8.0 L Phosphorus Lactate Dehydrogenase Total Creatine Kinase NT-Pro-B Natriuret Pep Albumin Xxbwb-2-Rfgrtuhpf Ikqwd-9-Dnflpvxwy Beta Globulins PEP Interpretation Cholesterol LDL Cholesterol Direct 04/02/16 04/02/16 04/02/16 11:51 13:10 17:24 WBC RBC Hgb Hct MCV MCH MCHC RDW Plt Count Lymph % (Auto) [place] % (Auto) Lymph # [place] # Baso # Seg Neutrophils % Seg Neuts % (Manual) Lymphocytes % (Manual) Seg Neutrophils # Seg Neutrophils # Man Lymphocytes # (Manual) Monocytes # (Manual) PT INR APTT Heparin Anti-Xa Level POC ABG pH 7.518 H POC ABG pCO2 POC ABG pO2 Sodium Potassium Chloride Carbon Dioxide BUN Creatinine Glucose POC Glucose 278 H 195 H Calcium Phosphorus Lactate Dehydrogenase Total Creatine Kinase NT-Pro-B Natriuret Pep Albumin Nutws-8-Wbwnvptaz Qpamj-0-Ikojwdybb Beta Globulins PEP Interpretation Cholesterol LDL Cholesterol Direct 04/03/16 04/03/16 04/03/16 00:18 04:10 04:10 WBC 14.3 H RBC Hgb Hct MCV 81 L MCH 26 L MCHC RDW Plt Count Lymph % (Auto) 9.0 L [place] % (Auto) 10.7 H Lymph # [place] # 1.5 H Baso # 0.2 H Seg Neutrophils % 78.5 H Seg Neuts % (Manual) Lymphocytes % (Manual) Seg Neutrophils # 11.3 H Seg Neutrophils # Man Lymphocytes # (Manual) Monocytes # (Manual) PT INR APTT Heparin Anti-Xa Level POC ABG pH POC ABG pCO2 POC ABG pO2 Sodium 148 H Potassium Chloride 108.1 H Carbon Dioxide BUN 21 H Creatinine Glucose 227 H POC Glucose 144 H Calcium 8.2 L Phosphorus Lactate Dehydrogenase Total Creatine Kinase NT-Pro-B Natriuret Pep Albumin Qitwe-6-Eazpkocce Xjnbz-5-Yobmkwncg Beta Globulins PEP Interpretation Cholesterol LDL Cholesterol Direct 04/03/16 04/03/16 04/04/16 11:14 17:10 04:00 WBC 14.5 H RBC Hgb Hct MCV 81 L MCH 26 L MCHC RDW Plt Count Lymph % (Auto) 7.2 L [place] % (Auto) 7.6 H Lymph # 1.0 L [place] # 1.1 H Baso # Seg Neutrophils % 84.5 H Seg Neuts % (Manual) Lymphocytes % (Manual) Seg Neutrophils # 12.3 H Seg Neutrophils # Man Lymphocytes # (Manual) Monocytes # (Manual) PT INR APTT Heparin Anti-Xa Level POC ABG pH POC ABG pCO2 POC ABG pO2 Sodium Potassium Chloride Carbon Dioxide BUN Creatinine Glucose POC Glucose 267 H 212 H Calcium Phosphorus Lactate Dehydrogenase Total Creatine Kinase NT-Pro-B Natriuret Pep Albumin Bbbpg-2-Ewxbwjtup Pxvlv-5-Hiezafrnp Beta Globulins PEP Interpretation Cholesterol LDL Cholesterol Direct 04/04/16 04/04/16 04/04/16 05:00 09:55 09:55 WBC RBC Hgb 11.5 L Hct MCV MCH MCHC RDW Plt Count Lymph % (Auto) [place] % (Auto) Lymph # [place] # Baso # Seg Neutrophils % Seg Neuts % (Manual) Lymphocytes % (Manual) Seg Neutrophils # Seg Neutrophils # Man Lymphocytes # (Manual) Monocytes # (Manual) PT INR APTT 42.1 H Heparin Anti-Xa Level POC ABG pH POC ABG pCO2 POC ABG pO2 Sodium 146 H Potassium Chloride Carbon Dioxide BUN 22 H Creatinine Glucose 128 H POC Glucose Calcium Phosphorus Lactate Dehydrogenase Total Creatine Kinase NT-Pro-B Natriuret Pep Albumin Ngqwi-0-Bszhuhhvm Eersd-6-Tyyijyyhx Beta Globulins PEP Interpretation Cholesterol LDL Cholesterol Direct 04/04/16 04/04/16 04/04/16 11:45 17:49 17:55 WBC RBC Hgb Hct MCV MCH MCHC RDW Plt Count Lymph % (Auto) [place] % (Auto) Lymph # [place] # Baso # Seg Neutrophils % Seg Neuts % (Manual) Lymphocytes % (Manual) Seg Neutrophils # Seg Neutrophils # Man Lymphocytes # (Manual) Monocytes # (Manual) PT INR APTT Heparin Anti-Xa Level 1.19 H POC ABG pH POC ABG pCO2 POC ABG pO2 Sodium Potassium Chloride Carbon Dioxide BUN Creatinine Glucose POC Glucose 231 H 186 H Calcium Phosphorus Lactate Dehydrogenase Total Creatine Kinase NT-Pro-B Natriuret Pep Albumin Imkbv-8-Guzjiifjr Cvqgr-8-Xhimdtxkd Beta Globulins PEP Interpretation Cholesterol LDL Cholesterol Direct 04/05/16 04/05/16 04/05/16 00:35 05:32 05:42 WBC RBC Hgb Hct MCV MCH MCHC RDW Plt Count Lymph % (Auto) [place] % (Auto) Lymph # [place] # Baso # Seg Neutrophils % Seg Neuts % (Manual) Lymphocytes % (Manual) Seg Neutrophils # Seg Neutrophils # Man Lymphocytes # (Manual) Monocytes # (Manual) PT INR APTT Heparin Anti-Xa Level POC ABG pH 7.491 H POC ABG pCO2 POC ABG pO2 Sodium Potassium Chloride Carbon Dioxide BUN Creatinine Glucose POC Glucose 192 H 242 H Calcium Phosphorus Lactate Dehydrogenase Total Creatine Kinase NT-Pro-B Natriuret Pep Albumin Ruffs-0-Ccfvoqvnp Hjvzh-1-Bxrnlnrze Beta Globulins PEP Interpretation Cholesterol LDL Cholesterol Direct 04/05/16 04/05/16 04/05/16 06:20 06:20 12:19 WBC 13.9 H RBC Hgb 11.6 L Hct MCV 81 L MCH 26 L MCHC RDW Plt Count Lymph % (Auto) 9.6 L [place] % (Auto) 8.7 H Lymph # [place] # 1.2 H Baso # Seg Neutrophils % 80.9 H Seg Neuts % (Manual) Lymphocytes % (Manual) Seg Neutrophils # 11.3 H Seg Neutrophils # Man Lymphocytes # (Manual) Monocytes # (Manual) PT INR APTT Heparin Anti-Xa Level POC ABG pH POC ABG pCO2 POC ABG pO2 Sodium 148 H Potassium Chloride Carbon Dioxide BUN 23 H Creatinine Glucose 242 H POC Glucose 187 H Calcium Phosphorus Lactate Dehydrogenase Total Creatine Kinase NT-Pro-B Natriuret Pep Albumin Qyhxw-2-Ktmtrbrml Bolbj-7-Alrncmfkv Beta Globulins PEP Interpretation Cholesterol LDL Cholesterol Direct 04/05/16 04/05/16 04/06/16 17:10 23:45 05:23 WBC 13.0 H RBC Hgb Hct MCV 82 L MCH 26 L MCHC 31 L RDW Plt Count Lymph % (Auto) 6.7 L [place] % (Auto) 8.3 H Lymph # 0.9 L [place] # 1.1 H Baso # Seg Neutrophils % 84.6 H Seg Neuts % (Manual) Lymphocytes % (Manual) Seg Neutrophils # 11.0 H Seg Neutrophils # Man Lymphocytes # (Manual) Monocytes # (Manual) PT INR APTT Heparin Anti-Xa Level POC ABG pH POC ABG pCO2 POC ABG pO2 Sodium Potassium Chloride Carbon Dioxide BUN Creatinine Glucose POC Glucose 169 H 202 H Calcium Phosphorus Lactate Dehydrogenase Total Creatine Kinase NT-Pro-B Natriuret Pep Albumin Nkovk-1-Wpoehfpks Bkbct-0-Eiktyxsvi Beta Globulins PEP Interpretation Cholesterol LDL Cholesterol Direct 04/06/16 04/06/16 04/06/16 05:23 05:23 06:11 WBC RBC Hgb Hct MCV MCH MCHC RDW Plt Count Lymph % (Auto) [place] % (Auto) Lymph # [place] # Baso # Seg Neutrophils % Seg Neuts % (Manual) Lymphocytes % (Manual) Seg Neutrophils # Seg Neutrophils # Man Lymphocytes # (Manual) Monocytes # (Manual) PT INR APTT Heparin Anti-Xa Level 0.21 L POC ABG pH POC ABG pCO2 POC ABG pO2 Sodium 153 H Potassium Chloride 111.3 H Carbon Dioxide BUN 22 H Creatinine Glucose 62 L POC Glucose 56 L Calcium Phosphorus Lactate Dehydrogenase Total Creatine Kinase NT-Pro-B Natriuret Pep Albumin Usdty-8-Thjsaevsf Klzyy-1-Ecgnberpn Beta Globulins PEP Interpretation Cholesterol LDL Cholesterol Direct 04/06/16 04/06/16 04/06/16 06:52 11:36 14:58 WBC RBC Hgb Hct MCV MCH MCHC RDW Plt Count Lymph % (Auto) [place] % (Auto) Lymph # [place] # Baso # Seg Neutrophils % Seg Neuts % (Manual) Lymphocytes % (Manual) Seg Neutrophils # Seg Neutrophils # Man Lymphocytes # (Manual) Monocytes # (Manual) PT INR APTT Heparin Anti-Xa Level POC ABG pH POC ABG pCO2 POC ABG pO2 Sodium Potassium Chloride Carbon Dioxide BUN Creatinine Glucose POC Glucose 206 H 139 H 147 H Calcium Phosphorus Lactate Dehydrogenase Total Creatine Kinase NT-Pro-B Natriuret Pep Albumin Rchul-4-Elzigivzp Azrky-5-Vjwzrilww Beta Globulins PEP Interpretation Cholesterol LDL Cholesterol Direct 04/06/16 04/06/16 04/06/16 16:03 21:18 23:53 WBC RBC Hgb Hct MCV MCH MCHC RDW Plt Count Lymph % (Auto) [place] % (Auto) Lymph # [place] # Baso # Seg Neutrophils % Seg Neuts % (Manual) Lymphocytes % (Manual) Seg Neutrophils # Seg Neutrophils # Man Lymphocytes # (Manual) Monocytes # (Manual) PT INR APTT Heparin Anti-Xa Level POC ABG pH POC ABG pCO2 POC ABG pO2 Sodium Potassium Chloride Carbon Dioxide BUN Creatinine Glucose POC Glucose 154 H 293 H 301 H Calcium Phosphorus Lactate Dehydrogenase Total Creatine Kinase NT-Pro-B Natriuret Pep Albumin Rwggv-4-Kuwstcehe Dmfmr-1-Evlbnehpj Beta Globulins PEP Interpretation Cholesterol LDL Cholesterol Direct 04/07/16 04/07/16 04/07/16 02:30 05:11 05:11 WBC 12.5 H RBC Hgb 11.5 L Hct MCV 82 L MCH 26 L MCHC 31 L RDW Plt Count Lymph % (Auto) [place] % (Auto) Lymph # [place] # Baso # Seg Neutrophils % Seg Neuts % (Manual) Lymphocytes % (Manual) Seg Neutrophils # Seg Neutrophils # Man Lymphocytes # (Manual) Monocytes # (Manual) PT INR APTT Heparin Anti-Xa Level 0.11 L POC ABG pH POC ABG pCO2 POC ABG pO2 Sodium 150 H Potassium Chloride 109.5 H Carbon Dioxide BUN 28 H Creatinine Glucose 264 H POC Glucose Calcium Phosphorus Lactate Dehydrogenase Total Creatine Kinase NT-Pro-B Natriuret Pep Albumin Yofrg-7-Himopgwln Jnkvc-8-Fywwrrgxz Beta Globulins PEP Interpretation Cholesterol LDL Cholesterol Direct 04/07/16 04/07/16 04/07/16 06:46 10:18 11:50 WBC RBC Hgb Hct MCV MCH MCHC RDW Plt Count Lymph % (Auto) [place] % (Auto) Lymph # [place] # Baso # Seg Neutrophils % Seg Neuts % (Manual) Lymphocytes % (Manual) Seg Neutrophils # Seg Neutrophils # Man Lymphocytes # (Manual) Monocytes # (Manual) PT 15.1 H INR 1.20 H APTT Heparin Anti-Xa Level POC ABG pH POC ABG pCO2 POC ABG pO2 Sodium Potassium Chloride Carbon Dioxide BUN Creatinine Glucose POC Glucose 259 H 288 H Calcium Phosphorus Lactate Dehydrogenase Total Creatine Kinase NT-Pro-B Natriuret Pep Albumin Xdiar-1-Tsayxwsbn Uiymg-5-Tdctdyacq Beta Globulins PEP Interpretation Cholesterol LDL Cholesterol Direct 04/07/16 04/08/16 04/08/16 17:58 01:25 06:49 WBC RBC Hgb Hct MCV MCH MCHC RDW Plt Count Lymph % (Auto) [place] % (Auto) Lymph # [place] # Baso # Seg Neutrophils % Seg Neuts % (Manual) Lymphocytes % (Manual) Seg Neutrophils # Seg Neutrophils # Man Lymphocytes # (Manual) Monocytes # (Manual) PT INR APTT Heparin Anti-Xa Level POC ABG pH POC ABG pCO2 POC ABG pO2 Sodium 156 H Potassium Chloride 114.7 H Carbon Dioxide BUN 33 H Creatinine Glucose 169 H POC Glucose 330 H 146 H Calcium Phosphorus Lactate Dehydrogenase Total Creatine Kinase NT-Pro-B Natriuret Pep Albumin Qjbsk-0-Zhahpelwv Jrcje-5-Lmyrlmflf Beta Globulins PEP Interpretation Cholesterol LDL Cholesterol Direct 04/08/16 04/08/16 04/08/16 07:34 10:28 10:28 WBC RBC Hgb Hct MCV MCH MCHC RDW Plt Count Lymph % (Auto) [place] % (Auto) Lymph # [place] # Baso # Seg Neutrophils % Seg Neuts % (Manual) Lymphocytes % (Manual) Seg Neutrophils # Seg Neutrophils # Man Lymphocytes # (Manual) Monocytes # (Manual) PT 15.5 H INR 1.24 H APTT Heparin Anti-Xa Level 0.24 L POC ABG pH POC ABG pCO2 POC ABG pO2 Sodium Potassium Chloride Carbon Dioxide BUN Creatinine Glucose POC Glucose 232 H Calcium Phosphorus Lactate Dehydrogenase Total Creatine Kinase NT-Pro-B Natriuret Pep Albumin Fiujx-9-Jbosdpnhk Lhmnz-0-Ffeheletf Beta Globulins PEP Interpretation Cholesterol LDL Cholesterol Direct 04/08/16 04/08/16 04/09/16 11:36 15:38 00:01 WBC RBC Hgb Hct MCV MCH MCHC RDW Plt Count Lymph % (Auto) [place] % (Auto) Lymph # [place] # Baso # Seg Neutrophils % Seg Neuts % (Manual) Lymphocytes % (Manual) Seg Neutrophils # Seg Neutrophils # Man Lymphocytes # (Manual) Monocytes # (Manual) PT INR APTT Heparin Anti-Xa Level POC ABG pH POC ABG pCO2 POC ABG pO2 Sodium Potassium Chloride Carbon Dioxide BUN Creatinine Glucose POC Glucose 193 H 163 H 180 H Calcium Phosphorus Lactate Dehydrogenase Total Creatine Kinase NT-Pro-B Natriuret Pep Albumin Yjira-0-Qyssufdsg Mkxkw-7-Vokinidyb Beta Globulins PEP Interpretation Cholesterol LDL Cholesterol Direct 04/09/16 04/09/16 04/09/16 06:17 06:42 06:42 WBC RBC Hgb Hct MCV MCH MCHC RDW Plt Count Lymph % (Auto) [place] % (Auto) Lymph # [place] # Baso # Seg Neutrophils % Seg Neuts % (Manual) Lymphocytes % (Manual) Seg Neutrophils # Seg Neutrophils # Man Lymphocytes # (Manual) Monocytes # (Manual) PT 17.4 H INR 1.43 H APTT Heparin Anti-Xa Level POC ABG pH POC ABG pCO2 POC ABG pO2 Sodium 153 H Potassium Chloride 113.2 H Carbon Dioxide BUN 29 H Creatinine Glucose 301 H POC Glucose 249 H Calcium 8.3 L Phosphorus Lactate Dehydrogenase Total Creatine Kinase NT-Pro-B Natriuret Pep Albumin Qylmi-9-Xiuyehybd Pndlt-6-Jujlsqbzv Beta Globulins PEP Interpretation Cholesterol LDL Cholesterol Direct 04/09/16 04/09/16 04/09/16 07:37 11:26 15:45 WBC RBC Hgb Hct MCV MCH MCHC RDW Plt Count Lymph % (Auto) [place] % (Auto) Lymph # [place] # Baso # Seg Neutrophils % Seg Neuts % (Manual) Lymphocytes % (Manual) Seg Neutrophils # Seg Neutrophils # Man Lymphocytes # (Manual) Monocytes # (Manual) PT INR APTT Heparin Anti-Xa Level POC ABG pH POC ABG pCO2 POC ABG pO2 Sodium Potassium Chloride Carbon Dioxide BUN Creatinine Glucose POC Glucose 283 H 306 H 354 H Calcium Phosphorus Lactate Dehydrogenase Total Creatine Kinase NT-Pro-B Natriuret Pep Albumin Qeyap-7-Ouqzgahiq Klmiq-7-Wewroalwg Beta Globulins PEP Interpretation Cholesterol LDL Cholesterol Direct 04/10/16 04/10/16 04/10/16 00:53 07:15 07:34 WBC RBC Hgb 11.3 L Hct MCV MCH MCHC RDW Plt Count Lymph % (Auto) [place] % (Auto) Lymph # [place] # Baso # Seg Neutrophils % Seg Neuts % (Manual) Lymphocytes % (Manual) Seg Neutrophils # Seg Neutrophils # Man Lymphocytes # (Manual) Monocytes # (Manual) PT INR APTT Heparin Anti-Xa Level POC ABG pH POC ABG pCO2 POC ABG pO2 Sodium Potassium Chloride Carbon Dioxide BUN Creatinine Glucose POC Glucose 323 H 311 H Calcium Phosphorus Lactate Dehydrogenase Total Creatine Kinase NT-Pro-B Natriuret Pep Albumin Cxyrk-2-Jacuvhzfy Pgcma-8-Esdoaubqb Beta Globulins PEP Interpretation Cholesterol LDL Cholesterol Direct 04/10/16 04/10/16 04/10/16 07:34 07:34 11:25 WBC RBC Hgb Hct MCV MCH MCHC RDW Plt Count Lymph % (Auto) [place] % (Auto) Lymph # [place] # Baso # Seg Neutrophils % Seg Neuts % (Manual) Lymphocytes % (Manual) Seg Neutrophils # Seg Neutrophils # Man Lymphocytes # (Manual) Monocytes # (Manual) PT 17.3 H INR 1.42 H APTT Heparin Anti-Xa Level POC ABG pH POC ABG pCO2 POC ABG pO2 Sodium 158 H Potassium Chloride 118.6 H Carbon Dioxide BUN 30 H Creatinine Glucose 330 H POC Glucose 335 H Calcium 8.3 L Phosphorus Lactate Dehydrogenase Total Creatine Kinase NT-Pro-B Natriuret Pep Albumin Pivcu-5-Bawtjsrgm Lqczp-5-Onradigir Beta Globulins PEP Interpretation Cholesterol LDL Cholesterol Direct 04/10/16 04/11/16 04/11/16 16:21 00:29 07:47 WBC RBC Hgb Hct MCV MCH MCHC RDW Plt Count Lymph % (Auto) [place] % (Auto) Lymph # [place] # Baso # Seg Neutrophils % Seg Neuts % (Manual) Lymphocytes % (Manual) Seg Neutrophils # Seg Neutrophils # Man Lymphocytes # (Manual) Monocytes # (Manual) PT 18.4 H INR 1.53 H APTT Heparin Anti-Xa Level POC ABG pH POC ABG pCO2 POC ABG pO2 Sodium Potassium Chloride Carbon Dioxide BUN Creatinine Glucose POC Glucose 230 H 162 H Calcium Phosphorus Lactate Dehydrogenase Total Creatine Kinase NT-Pro-B Natriuret Pep Albumin Sfyng-6-Zpxtbdpjo Izhle-2-Trkxdogbc Beta Globulins PEP Interpretation Cholesterol LDL Cholesterol Direct 04/11/16 04/11/16 04/12/16 07:47 11:22 04:54 WBC RBC Hgb 11.0 L Hct 35.0 L MCV MCH MCHC RDW Plt Count Lymph % (Auto) [place] % (Auto) Lymph # [place] # Baso # Seg Neutrophils % Seg Neuts % (Manual) Lymphocytes % (Manual) Seg Neutrophils # Seg Neutrophils # Man Lymphocytes # (Manual) Monocytes # (Manual) PT INR APTT Heparin Anti-Xa Level POC ABG pH POC ABG pCO2 POC ABG pO2 Sodium 155 H Potassium Chloride 114.5 H Carbon Dioxide BUN 23 H Creatinine Glucose 157 H POC Glucose 229 H Calcium Phosphorus Lactate Dehydrogenase Total Creatine Kinase NT-Pro-B Natriuret Pep Albumin Zuutb-4-Wmpudwzvf Gxusa-8-Jxeqrvvvn Beta Globulins PEP Interpretation Cholesterol LDL Cholesterol Direct 04/12/16 04/12/16 04/12/16 04:54 04:54 05:57 WBC RBC Hgb Hct MCV MCH MCHC RDW Plt Count Lymph % (Auto) [place] % (Auto) Lymph # [place] # Baso # Seg Neutrophils % Seg Neuts % (Manual) Lymphocytes % (Manual) Seg Neutrophils # Seg Neutrophils # Man Lymphocytes # (Manual) Monocytes # (Manual) PT 22.5 H INR 1.98 H APTT Heparin Anti-Xa Level 0.19 L POC ABG pH POC ABG pCO2 POC ABG pO2 Sodium 156 H Potassium Chloride 115.4 H Carbon Dioxide BUN 23 H Creatinine Glucose 143 H POC Glucose 194 H Calcium Phosphorus Lactate Dehydrogenase Total Creatine Kinase NT-Pro-B Natriuret Pep Albumin Shiyv-2-Wvfqjobnj Fmhef-3-Xozsjfluv Beta Globulins PEP Interpretation Cholesterol LDL Cholesterol Direct 04/12/16 04/12/16 04/12/16 12:34 19:01 23:30 WBC RBC Hgb Hct MCV MCH MCHC RDW Plt Count Lymph % (Auto) [place] % (Auto) Lymph # [place] # Baso # Seg Neutrophils % Seg Neuts % (Manual) Lymphocytes % (Manual) Seg Neutrophils # Seg Neutrophils # Man Lymphocytes # (Manual) Monocytes # (Manual) PT INR APTT Heparin Anti-Xa Level POC ABG pH POC ABG pCO2 POC ABG pO2 Sodium Potassium Chloride Carbon Dioxide BUN Creatinine Glucose POC Glucose 291 H 235 H 154 H Calcium Phosphorus Lactate Dehydrogenase Total Creatine Kinase NT-Pro-B Natriuret Pep Albumin Dgohb-6-Dyxqhsuig Xjkgp-9-Jaktavema Beta Globulins PEP Interpretation Cholesterol LDL Cholesterol Direct 04/13/16 04/13/16 04/13/16 05:16 05:16 05:28 WBC RBC Hgb Hct MCV MCH MCHC RDW Plt Count Lymph % (Auto) [place] % (Auto) Lymph # [place] # Baso # Seg Neutrophils % Seg Neuts % (Manual) Lymphocytes % (Manual) Seg Neutrophils # Seg Neutrophils # Man Lymphocytes # (Manual) Monocytes # (Manual) PT 27.0 H INR 2.49 H APTT Heparin Anti-Xa Level 0.20 L POC ABG pH POC ABG pCO2 POC ABG pO2 Sodium 150 H Potassium Chloride 110.5 H Carbon Dioxide BUN 21 H Creatinine Glucose 159 H POC Glucose 177 H Calcium Phosphorus Lactate Dehydrogenase Total Creatine Kinase NT-Pro-B Natriuret Pep Albumin Osora-0-Vyyqvzclh Xnrjx-7-Dbueknajy Beta Globulins PEP Interpretation Cholesterol LDL Cholesterol Direct 04/13/16 04/13/16 04/14/16 11:30 17:54 00:44 WBC RBC Hgb Hct MCV MCH MCHC RDW Plt Count Lymph % (Auto) [place] % (Auto) Lymph # [place] # Baso # Seg Neutrophils % Seg Neuts % (Manual) Lymphocytes % (Manual) Seg Neutrophils # Seg Neutrophils # Man Lymphocytes # (Manual) Monocytes # (Manual) PT INR APTT Heparin Anti-Xa Level POC ABG pH POC ABG pCO2 POC ABG pO2 Sodium Potassium Chloride Carbon Dioxide BUN Creatinine Glucose POC Glucose 181 H 251 H 237 H Calcium Phosphorus Lactate Dehydrogenase Total Creatine Kinase NT-Pro-B Natriuret Pep Albumin Gmlap-0-Tlvgpmcks Zfwij-7-Kuuijtgkm Beta Globulins PEP Interpretation Cholesterol LDL Cholesterol Direct 04/14/16 04/14/16 04/14/16 05:00 05:42 05:42 WBC RBC Hgb Hct MCV MCH MCHC RDW Plt Count Lymph % (Auto) [place] % (Auto) Lymph # [place] # Baso # Seg Neutrophils % Seg Neuts % (Manual) Lymphocytes % (Manual) Seg Neutrophils # Seg Neutrophils # Man Lymphocytes # (Manual) Monocytes # (Manual) PT 30.3 H INR 2.88 H APTT Heparin Anti-Xa Level 0.27 L POC ABG pH POC ABG pCO2 POC ABG pO2 Sodium Potassium 3.5 L Chloride Carbon Dioxide BUN Creatinine Glucose 160 H POC Glucose Calcium 8.2 L Phosphorus Lactate Dehydrogenase Total Creatine Kinase NT-Pro-B Natriuret Pep Albumin Ckqmf-9-[place]pn Bydmo-1-Onfhbccnz Beta Globulins PEP Interpretation Cholesterol LDL Cholesterol Direct 04/14/16 04/14/16 04/14/16 06:02 06:16 09:18 WBC 12.3 H RBC Hgb 11.4 L Hct MCV 82 L MCH 26 L MCHC RDW Plt Count Lymph % (Auto) [place] % (Auto) Lymph # [place] # Baso # Seg Neutrophils % Seg Neuts % (Manual) Lymphocytes % (Manual) Seg Neutrophils # Seg Neutrophils # Man Lymphocytes # (Manual) Monocytes # (Manual) PT INR APTT Heparin Anti-Xa Level POC ABG pH POC ABG pCO2 POC ABG pO2 Sodium Potassium Chloride Carbon Dioxide BUN Creatinine Glucose POC Glucose 156 H 164 H Calcium Phosphorus Lactate Dehydrogenase Total Creatine Kinase NT-Pro-B Natriuret Pep Albumin Adquu-2-Mjlifglvd Mtjrc-1-Qtschyfaw Beta Globulins PEP Interpretation Cholesterol LDL Cholesterol Direct 04/14/16 04/15/16 04/15/16 13:58 01:07 06:04 WBC RBC Hgb Hct MCV MCH MCHC RDW Plt Count Lymph % (Auto) [place] % (Auto) Lymph # [place] # Baso # Seg Neutrophils % Seg Neuts % (Manual) Lymphocytes % (Manual) Seg Neutrophils # Seg Neutrophils # Man Lymphocytes # (Manual) Monocytes # (Manual) PT 24.9 H INR 2.25 H APTT Heparin Anti-Xa Level POC ABG pH POC ABG pCO2 POC ABG pO2 Sodium Potassium Chloride Carbon Dioxide BUN Creatinine Glucose POC Glucose 109 H 154 H Calcium Phosphorus Lactate Dehydrogenase Total Creatine Kinase NT-Pro-B Natriuret Pep Albumin Bkkwf-2-Exgrokclv Ndlku-3-Epjrqfzam Beta Globulins PEP Interpretation Cholesterol LDL Cholesterol Direct 04/15/16 04/15/16 04/16/16 06:08 12:41 00:38 WBC RBC Hgb Hct MCV MCH MCHC RDW Plt Count Lymph % (Auto) [place] % (Auto) Lymph # [place] # Baso # Seg Neutrophils % Seg Neuts % (Manual) Lymphocytes % (Manual) Seg Neutrophils # Seg Neutrophils # Man Lymphocytes # (Manual) Monocytes # (Manual) PT INR APTT Heparin Anti-Xa Level POC ABG pH POC ABG pCO2 POC ABG pO2 Sodium Potassium Chloride Carbon Dioxide BUN Creatinine Glucose POC Glucose 165 H 223 H 216 H Calcium Phosphorus Lactate Dehydrogenase Total Creatine Kinase NT-Pro-B Natriuret Pep Albumin Xiczd-9-Jbxnivqzb Veddx-7-Amnfpsnyl Beta Globulins PEP Interpretation Cholesterol LDL Cholesterol Direct 04/16/16 04/16/16 04/16/16 05:45 07:09 14:00 WBC RBC Hgb Hct MCV MCH MCHC RDW Plt Count Lymph % (Auto) [place] % (Auto) Lymph # [place] # Baso # Seg Neutrophils % Seg Neuts % (Manual) Lymphocytes % (Manual) Seg Neutrophils # Seg Neutrophils # Man Lymphocytes # (Manual) Monocytes # (Manual) PT 19.4 H INR 1.64 H APTT Heparin Anti-Xa Level 0.10 L POC ABG pH POC ABG pCO2 POC ABG pO2 Sodium Potassium Chloride Carbon Dioxide BUN Creatinine Glucose POC Glucose 207 H 69 L Calcium Phosphorus Lactate Dehydrogenase Total Creatine Kinase NT-Pro-B Natriuret Pep Albumin Dfkwy-4-Fuwynhcca Oqumj-2-Zhpwcjmog Beta Globulins PEP Interpretation Cholesterol LDL Cholesterol Direct 04/16/16 04/16/16 04/16/16 17:40 17:52 19:38 WBC RBC Hgb Hct MCV MCH MCHC RDW Plt Count Lymph % (Auto) [place] % (Auto) Lymph # [place] # Baso # Seg Neutrophils % Seg Neuts % (Manual) Lymphocytes % (Manual) Seg Neutrophils # Seg Neutrophils # Man Lymphocytes # (Manual) Monocytes # (Manual) PT INR APTT Heparin Anti-Xa Level 0.26 L POC ABG pH 7.543 H 7.488 H POC ABG pCO2 26.3 L 30.3 L POC ABG pO2 55 L 203 H Sodium Potassium Chloride Carbon Dioxide BUN Creatinine Glucose POC Glucose Calcium Phosphorus Lactate Dehydrogenase Total Creatine Kinase NT-Pro-B Natriuret Pep Albumin Qiskd-2-Yqogulmac Npqjg-7-Fayqzyczz Beta Globulins PEP Interpretation Cholesterol LDL Cholesterol Direct 04/17/16 04/17/16 04/17/16 00:04 05:10 05:36 WBC RBC Hgb Hct MCV MCH MCHC RDW Plt Count Lymph % (Auto) [place] % (Auto) Lymph # [place] # Baso # Seg Neutrophils % Seg Neuts % (Manual) Lymphocytes % (Manual) Seg Neutrophils # Seg Neutrophils # Man Lymphocytes # (Manual) Monocytes # (Manual) PT INR APTT Heparin Anti-Xa Level POC ABG pH POC ABG pCO2 32.7 L POC ABG pO2 68 L Sodium Potassium Chloride Carbon Dioxide BUN Creatinine Glucose POC Glucose 113 H 161 H Calcium Phosphorus Lactate Dehydrogenase Total Creatine Kinase NT-Pro-B Natriuret Pep Albumin Ayncn-7-Cayqsupjd Bmzev-2-Yesubkrel Beta Globulins PEP Interpretation Cholesterol LDL Cholesterol Direct 04/17/16 04/17/16 04/17/16 05:41 08:37 11:46 WBC RBC Hgb Hct MCV MCH MCHC RDW Plt Count Lymph % (Auto) [place] % (Auto) Lymph # [place] # Baso # Seg Neutrophils % Seg Neuts % (Manual) Lymphocytes % (Manual) Seg Neutrophils # Seg Neutrophils # Man Lymphocytes # (Manual) Monocytes # (Manual) PT 17.4 H INR 1.43 H APTT Heparin Anti-Xa Level POC ABG pH POC ABG pCO2 POC ABG pO2 Sodium Potassium Chloride Carbon Dioxide BUN Creatinine Glucose POC Glucose 154 H 138 H Calcium Phosphorus Lactate Dehydrogenase Total Creatine Kinase NT-Pro-B Natriuret Pep Albumin Aydrk-5-Xdjaaibsh Cgmta-4-Bllnopibq Beta Globulins PEP Interpretation Cholesterol LDL Cholesterol Direct 04/17/16 04/17/16 04/17/16 12:17 12:17 21:20 WBC 16.5 H RBC 3.31 L Hgb 8.8 L Hct 26.9 L MCV 81 L MCH 27 L MCHC RDW 15.5 H Plt Count Lymph % (Auto) [place] % (Auto) Lymph # [place] # Baso # Seg Neutrophils % Seg Neuts % (Manual) Lymphocytes % (Manual) 3.0 L Seg Neutrophils # Seg Neutrophils # Man 10.1 H Lymphocytes # (Manual) 0.5 L Monocytes # (Manual) PT INR APTT Heparin Anti-Xa Level 0.14 L POC ABG pH POC ABG pCO2 POC ABG pO2 Sodium Potassium Chloride Carbon Dioxide 21 L BUN 38 H Creatinine 1.8 H D Glucose 131 H POC Glucose Calcium 7.6 L Phosphorus Lactate Dehydrogenase Total Creatine Kinase NT-Pro-B Natriuret Pep Albumin Ldgpu-6-Hkosooaxc Suqvx-4-Rqvqfnqpw Beta Globulins PEP Interpretation Cholesterol LDL Cholesterol Direct 04/17/16 04/17/16 04/18/16 23:38 23:41 00:21 WBC RBC Hgb Hct MCV MCH MCHC RDW Plt Count Lymph % (Auto) [place] % (Auto) Lymph # [place] # Baso # Seg Neutrophils % Seg Neuts % (Manual) Lymphocytes % (Manual) Seg Neutrophils # Seg Neutrophils # Man Lymphocytes # (Manual) Monocytes # (Manual) PT INR APTT Heparin Anti-Xa Level POC ABG pH POC ABG pCO2 POC ABG pO2 Sodium Potassium Chloride Carbon Dioxide BUN Creatinine Glucose POC Glucose < 40 L < 40 L 223 H Calcium Phosphorus Lactate Dehydrogenase Total Creatine Kinase NT-Pro-B Natriuret Pep Albumin Yqrhg-8-Qhvmkglrh Dtrnu-1-Tghlbohof Beta Globulins PEP Interpretation Cholesterol LDL Cholesterol Direct 04/18/16 04/18/16 04/18/16 05:01 05:20 05:20 WBC 17.6 H RBC 3.44 L Hgb 9.1 L Hct 27.8 L MCV 81 L MCH 26 L MCHC RDW 15.5 H Plt Count Lymph % (Auto) 2.7 L [place] % (Auto) 8.3 H Lymph # 0.5 L [place] # 1.5 H Baso # Seg Neutrophils % 88.4 H Seg Neuts % (Manual) Lymphocytes % (Manual) Seg Neutrophils # 15.6 H Seg Neutrophils # Man Lymphocytes # (Manual) Monocytes # (Manual) PT 17.4 H INR 1.43 H APTT Heparin Anti-Xa Level POC ABG pH 7.528 H POC ABG pCO2 27.9 L POC ABG pO2 Sodium Potassium Chloride Carbon Dioxide BUN Creatinine Glucose POC Glucose Calcium Phosphorus Lactate Dehydrogenase Total Creatine Kinase NT-Pro-B Natriuret Pep Albumin Riavo-9-Eimwdkara Fkako-4-Ilpbthvgq Beta Globulins PEP Interpretation Cholesterol LDL Cholesterol Direct 04/18/16 04/18/16 04/18/16 05:20 05:31 06:50 WBC RBC Hgb Hct MCV MCH MCHC RDW Plt Count Lymph % (Auto) [place] % (Auto) Lymph # [place] # Baso # Seg Neutrophils % Seg Neuts % (Manual) Lymphocytes % (Manual) Seg Neutrophils # Seg Neutrophils # Man Lymphocytes # (Manual) Monocytes # (Manual) PT INR APTT Heparin Anti-Xa Level POC ABG pH POC ABG pCO2 POC ABG pO2 Sodium Potassium 3.4 L Chloride Carbon Dioxide 21 L BUN 22 H Creatinine Glucose POC Glucose 61 L 124 H Calcium 8.0 L Phosphorus Lactate Dehydrogenase Total Creatine Kinase NT-Pro-B Natriuret Pep Albumin Apisf-9-Ofbdyiuli Zytjc-6-Syavxftjn Beta Globulins PEP Interpretation Cholesterol LDL Cholesterol Direct 04/18/16 04/18/16 04/19/16 17:42 22:40 00:31 WBC RBC Hgb Hct MCV MCH MCHC RDW Plt Count Lymph % (Auto) [place] % (Auto) Lymph # [place] # Baso # Seg Neutrophils % Seg Neuts % (Manual) Lymphocytes % (Manual) Seg Neutrophils # Seg Neutrophils # Man Lymphocytes # (Manual) Monocytes # (Manual) PT INR APTT Heparin Anti-Xa Level < 0.10 L POC ABG pH POC ABG pCO2 POC ABG pO2 Sodium Potassium Chloride Carbon Dioxide BUN Creatinine Glucose POC Glucose 159 H 134 H Calcium Phosphorus Lactate Dehydrogenase Total Creatine Kinase NT-Pro-B Natriuret Pep Albumin Ievxz-6-Kuwvxghgc [place]itsa-4-Jmcdbsldr Beta Globulins PEP Interpretation Cholesterol LDL Cholesterol Direct 04/19/16 04/19/16 04/19/16 04:18 04:18 04:25 WBC 19.0 H RBC 3.58 L Hgb 9.3 L Hct 28.8 L MCV 80 L MCH 26 L MCHC RDW 15.5 H Plt Count Lymph % (Auto) 2.8 L [place] % (Auto) 7.4 H Lymph # 0.5 L [place] # 1.4 H Baso # Seg Neutrophils % 89.4 H Seg Neuts % (Manual) Lymphocytes % (Manual) Seg Neutrophils # 17.0 H Seg Neutrophils # Man Lymphocytes # (Manual) Monocytes # (Manual) PT INR APTT Heparin Anti-Xa Level POC ABG pH 7.527 H POC ABG pCO2 27.1 L POC ABG pO2 Sodium Potassium Chloride Carbon Dioxide BUN 22 H Creatinine Glucose 215 H POC Glucose Calcium 8.0 L Phosphorus Lactate Dehydrogenase Total Creatine Kinase NT-Pro-B Natriuret Pep Albumin Rileg-7-Bppqqldxp Jkrhb-3-Mjkcwabst Beta Globulins PEP Interpretation Cholesterol LDL Cholesterol Direct 1204/19/16 04/19/16 05:45 08:10 14:08 WBC RBC Hgb Hct MCV MCH MCHC RDW Plt Count Lymph % (Auto) [place] % (Auto) Lymph # [place] # Baso # Seg Neutrophils % Seg Neuts % (Manual) Lymphocytes % (Manual) Seg Neutrophils # Seg Neutrophils # Man Lymphocytes # (Manual) Monocytes # (Manual) PT 22.1 H INR 1.93 H APTT Heparin Anti-Xa Level 0.17 L POC ABG pH POC ABG pCO2 POC ABG pO2 Sodium Potassium Chloride Carbon Dioxide BUN Creatinine Glucose POC Glucose 196 H 318 H Calcium Phosphorus Lactate Dehydrogenase Total Creatine Kinase NT-Pro-B Natriuret Pep Albumin Saara-0-Eptrgcucf Lqjsk-2-Ojepsvhqs Beta Globulins PEP Interpretation Cholesterol LDL Cholesterol Direct 04/19/16 04/20/16 04/20/16 17:27 03:55 03:55 WBC 18.5 H RBC 3.19 L Hgb 8.4 L Hct 25.7 L MCV 80 L MCH 26 L MCHC RDW 15.9 H Plt Count Lymph % (Auto) 4.3 L [place] % (Auto) 10.1 H Lymph # 0.8 L [place] # 1.9 H Baso # Seg Neutrophils % 85.2 H Seg Neuts % (Manual) Lymphocytes % (Manual) Seg Neutrophils # 15.8 H Seg Neutrophils # Man Lymphocytes # (Manual) Monocytes # (Manual) PT 22.0 H INR 1.92 H APTT Heparin Anti-Xa Level 0.14 L POC ABG pH POC ABG pCO2 POC ABG pO2 Sodium Potassium Chloride Carbon Dioxide BUN Creatinine Glucose POC Glucose 230 H Calcium Phosphorus Lactate Dehydrogenase Total Creatine Kinase NT-Pro-B Natriuret Pep Albumin Crwfc-0-Buzisvkwm Lotct-3-Tmyuildpd Beta Globulins PEP Interpretation Cholesterol LDL Cholesterol Direct 04/20/16 04/20/16 04/20/16 03:55 04:16 05:52 WBC RBC Hgb Hct MCV MCH MCHC RDW Plt Count Lymph % (Auto) [place] % (Auto) Lymph # [place] # Baso # Seg Neutrophils % Seg Neuts % (Manual) Lymphocytes % (Manual) Seg Neutrophils # Seg Neutrophils # Man Lymphocytes # (Manual) Monocytes # (Manual) PT INR APTT Heparin Anti-Xa Level POC ABG pH 7.474 H POC ABG pCO2 26.5 L POC ABG pO2 Sodium Potassium Chloride Carbon Dioxide 18 L BUN 38 H Creatinine 2.7 H D Glucose 159 H POC Glucose 214 H Calcium 8.0 L Phosphorus Lactate Dehydrogenase Total Creatine Kinase NT-Pro-B Natriuret Pep Albumin Xofdp-3-Wktkcprec Ihmuu-9-Zfinxwjsc Beta Globulins PEP Interpretation Cholesterol LDL Cholesterol Direct
--- NOTE | 2016-04-20 11:31 | XRay Report ---
Supine KUB: Comparison is made to the prior study of 6:46 AM. The nasogastric tube has been removed. The patient currently has a PEG tube in place. No obvious free air noted. Normal distribution of bowel gas.
[2016-04-20 12:13] LABS: Potassium 3.8 mmol/L (3.6-5.0)
[2016-04-20] MEDS: NACL 0.9% 1000 ML 1,000 ML IV SCH (15:45)
--- NOTE | 2016-04-20 15:49 | Progress Note ---
Assessment and Plan 1. I attempted to reach the patient's today but was unable to do so. The vent settings today were FIO2 of .35 and PEEP of 5. INR today was 1.93. Anticoagulation should be held till INR<1.5. I will attempt to reach the again for consent and we can schedule the tracheostomy once INR is appropriate. Subjective Date of service: 04/20/16 Narrative: The patient remains intubated. Objective Vital Signs - 12hr 04/20/16 04/20/16 04/20/16 04:00 04:06 04:23 Temperature 99.6 F Pulse Rate 96 H 93 H Pulse Rate [ Bilateral Throughout] Pulse Rate [ 88 From Monitor] Respiratory 19 29 H Rate Respiratory Rate [Bilateral Throughout] Blood Pressure 110/70 140/101 O2 Sat by Pulse 100 100 Oximetry 04/20/16 04/20/16 04/20/16 04:30 05:00 05:02 Temperature Pulse Rate 83 87 87 Pulse Rate [ Bilateral Throughout] Pulse Rate [ From Monitor] Respiratory 22 23 24 Rate Respiratory Rate [Bilateral Throughout] Blood Pressure 95/57 105/65 105/65 O2 Sat by Pulse 100 100 100 Oximetry 04/20/16 04/20/16 04/20/16 05:30 05:31 06:00 Temperature Pulse Rate 88 87 87 Pulse Rate [ Bilateral Throughout] Pulse Rate [ From Monitor] Respiratory 23 17 Rate Respiratory Rate [Bilateral Throughout] Blood Pressure 115/68 107/66 108/63 O2 Sat by Pulse 100 100 100 Oximetry 04/20/16 04/20/16 04/20/16 06:02 06:30 07:00 Temperature Pulse Rate 87 90 95 H Pulse Rate [ Bilateral Throughout] Pulse Rate [ From Monitor] Respiratory 22 22 26 H Rate Respiratory Rate [Bilateral Throughout] Blood Pressure 108/63 116/70 128/76 O2 Sat by Pulse 100 100 100 Oximetry 04/20/16 04/20/16 04/20/16 07:18 07:30 07:50 Temperature Pulse Rate 93 H 91 H Pulse Rate [ 88 Bilateral Throughout] Pulse Rate [ From Monitor] Respiratory 24 21 Rate Respiratory 16 Rate [Bilateral Throughout] Blood Pressure 112/68 116/68 O2 Sat by Pulse 100 100 Oximetry 04/20/16 04/20/16 04/20/16 08:00 08:06 08:07 Temperature 99.4 F Pulse Rate 90 88 Pulse Rate [ 88 Bilateral Throughout] Pulse Rate [ 87 From Monitor] Respiratory 22 Rate Respiratory 24 Rate [Bilateral Throughout] Blood Pressure 107/70 107/70 O2 Sat by Pulse 100 100 Oximetry 04/20/16 04/20/16 04/20/16 08:30 09:00 09:30 Temperature Pulse Rate 88 93 H 86 Pulse Rate [ Bilateral Throughout] Pulse Rate [ From Monitor] Respiratory 16 23 21 Rate Respiratory Rate [Bilateral Throughout] Blood Pressure 96/63 119/73 112/67 O2 Sat by Pulse 100 100 100 Oximetry 04/20/16 04/20/16 04/20/16 10:00 10:30 11:00 Temperature Pulse Rate 83 83 Pulse Rate [ Bilateral Throughout] Pulse Rate [ From Monitor] Respiratory 21 16 Rate Respiratory Rate [Bilateral Throughout] Blood Pressure 115/72 117/71 156/101 O2 Sat by Pulse 100 100 100 Oximetry 04/20/16 04/20/16 04/20/16 11:30 11:52 12:00 Temperature Pulse Rate 82 82 83 Pulse Rate [ Bilateral Throughout] Pulse Rate [ From Monitor] Respiratory 20 21 Rate Respiratory Rate [Bilateral Throughout] Blood Pressure 118/67 111/65 114/68 O2 Sat by Pulse 100 100 100 Oximetry 04/20/16 04/20/16 04/20/16 12:30 13:01 13:30 Temperature Pulse Rate 85 99 H 95 H Pulse Rate [ Bilateral Throughout] Pulse Rate [ From Monitor] Respiratory 19 15 27 H Rate Respiratory Rate [Bilateral Throughout] Blood Pressure 118/72 155/91 122/75 O2 Sat by Pulse 100 100 99 Oximetry 04/20/16 04/20/16 04/20/16 14:00 14:15 14:29 Temperature Pulse Rate 84 Pulse Rate [ 86 86 Bilateral Throughout] Pulse Rate [ From Monitor] Respiratory 18 Rate Respiratory 16 16 Rate [Bilateral Throughout] Blood Pressure 109/62 O2 Sat by Pulse 99 Oximetry 04/20/16 04/20/16 04/20/16 14:30 14:35 15:00 Temperature Pulse Rate 87 92 H 92 H Pulse Rate [ Bilateral Throughout] Pulse Rate [ From Monitor] Respiratory 14 13 24 Rate Respiratory Rate [Bilateral Throughout] Blood Pressure 116/81 116/81 119/77 O2 Sat by Pulse 100 100 100 Oximetry 04/20/16 15:30 Temperature Pulse Rate 92 H Pulse Rate [ Bilateral Throughout] Pulse Rate [ From Monitor] Respiratory 25 H Rate Respiratory Rate [Bilateral Throughout] Blood Pressure 133/77 O2 Sat by Pulse 100 Oximetry - Neck trachea midline - Labs 04/20/16 03:55 04/20/16 10:32 Diabetes panel 04/20/16 04/20/16 Range/Units 03:55 10:32 Sodium 138 138 (137-145) mmol/L Potassium 3.8 3.8 (3.6-5.0) mmol/L Chloride 101.8 101.0 (98-107) mmol/L Carbon Dioxide 18 L 20 L (22-30) mmol/L BUN 38 H 45 H (9-20) mg/dL Creatinine 2.7 H D 3.0 H (0.8-1.5) mg/dL Glucose 159 H 215 H (75-100) mg/dL Calcium 8.0 L 8.0 L (8.4-10.2) mg/dL Calcium panel 04/20/16 04/20/16 Range/Units 03:55 10:32 Calcium 8.0 L 8.0 L (8.4-10.2) mg/dL Pituitary panel 04/20/16 04/20/16 Range/Units 03:55 10:32 Sodium 138 138 (137-145) mmol/L Potassium 3.8 3.8 (3.6-5.0) mmol/L Chloride 101.8 101.0 (98-107) mmol/L Carbon Dioxide 18 L 20 L (22-30) mmol/L BUN 38 H 45 H (9-20) mg/dL Creatinine 2.7 H D 3.0 H (0.8-1.5) mg/dL Glucose 159 H 215 H (75-100) mg/dL Calcium 8.0 L 8.0 L (8.4-10.2) mg/dL Adrenal panel 04/20/16 04/20/16 Range/Units 03:55 10:32 Sodium 138 138 (137-145) mmol/L Potassium 3.8 3.8 (3.6-5.0) mmol/L Chloride 101.8 101.0 (98-107) mmol/L Carbon Dioxide 18 L 20 L (22-30) mmol/L BUN 38 H 45 H (9-20) mg/dL Creatinine 2.7 H D 3.0 H (0.8-1.5) mg/dL Glucose 159 H 215 H (75-100) mg/dL Calcium 8.0 L 8.0 L (8.4-10.2) mg/dL
[2016-04-20] MEDS: NORVASC PO SCH (18:16)
[2016-04-20] MEDS: ZOFRAN IV PRN (21:53)
[2016-04-21] MEDS: NOVOLOG SUB-Q SCH ×4 (00:34→17:25)
[2016-04-21] MEDS: DUONEB 0.5 MG-3 MG/3 ML SOLN IH SCH ×4 (01:45→20:01)
[2016-04-21 05:03] LABS: Basophils % (Auto) 0.1 % (0.0-1.8); Eosinophils % (Auto) 0.4 % (0.0-4.3); Hematocrit 25.6 % (35.5-45.6); Hemoglobin 8.4 gm/dl (11.8-15.2); Mean Corpuscular HGB Conc 33 % (32-34); Mean Corpuscular Volume 79 fl (84-94); Platelet Count 241 K/mm3 (140-440); Red Blood Count 3.24 M/mm3 (3.65-5.03); Red Cell Distribution Width 16.1 % (13.2-15.2); White Blood Count 15.4 K/mm3 (4.5-11.0)
[2016-04-21 05:04] LABS: Mean Corpuscular Hemoglobin 26 pg (28-32)
[2016-04-21 05:08] LABS: INR 1.5 (0.87-1.13)
[2016-04-21 05:21] LABS: BUN/Creatinine Ratio 14.61; Chloride 98.9 mmol/L (98-107); Potassium 4.3 mmol/L (3.6-5.0)
[2016-04-21 05:25] LABS: ISTAT Base Excess -3; ISTAT HCO3 20.4; ISTAT PCO2 25.4 (35-45); ISTAT PH 7.512 (7.35-7.45); ISTAT PO2 91 (80-105); ISTAT SO2 98; ISTAT TCO2 21
[2016-04-21] MEDS: NORMODYNE PO SCH ×3 (08:32→20:48)
[2016-04-21] MEDS: BABY ASPIRIN PO SCH (10:15)
[2016-04-21] MEDS: PEPCID PO SCH (10:15)
[2016-04-21] MEDS: KEPPRA PO SCH ×2 (10:15→21:04)
[2016-04-21] MEDS: NORVASC PO SCH (10:15)
[2016-04-21] MEDS: ZESTRIL PO SCH ×2 (10:18→21:06)
[2016-04-21] MEDS: CORDARONE PO SCH (10:31)
--- NOTE | 2016-04-21 11:00 | XRay Report ---
AP chest x-ray. Findings: Since yesterday's study, there has been resolution of pulmonary vascular congestion. The lungs are clear. No pleural fluid is seen. Endotracheal tube is in satisfactory position. Impression: Interval improvement with no acute findings on today's study.
--- NOTE | 2016-04-21 11:29 | Progress Note ---
Assessment and Plan 61 y/o male with acute encephalopathy, secondary to embolic strokes, now with acute respiratory failure requiring re-intubation. 1. Fever: Currently growing shabazz sensitive pseudomonas. Will start therapy with cefepime with hard stop date. 2. Off pressors. Monitor BP 3. Follow up WBC count. Started abx therapy. CXR actually improved, so likely tracheobronchitis 4. Hold warfarin, continue heparin. Will restart once trach in place 5. Renal failure is worsening. Output is lower. I have asked the nurse to flush mcmahan to make sure no obstruction. Will obtain renal ultrasound. FeNa is consistent with volume depletion. Will start saline at 125/hr for two liters. May need to consider renal consult. 6. Will start laxative today. 7. Overall prognosis is guarded. Spoke to on phone about trach. She does not really understand why he is not waking up. i attempted to explain but neurology should speak more in depth with her. She also did not seem to understand the stroke/strokes that he has had. CCT 31 minutes. Subjective Date of service: 04/21/16 Principal diagnosis: CVA Interval history: No acute events. Mental status is unchanged. Abdomen is distended but soft. KUB essentially negative yesterday but no mention of stool. Family not at bedside. Low grade temp last night as well. Objective Vital Signs - 12hr 04/20/16 04/21/16 04/21/16 23:30 00:00 00:09 Temperature 98.5 F Pulse Rate 71 70 71 Pulse Rate [ Bilateral Throughout] Pulse Rate [ 75 From Monitor] Respiratory 14 13 14 Rate Respiratory Rate [Bilateral Throughout] Blood Pressure 99/62 97/61 97/61 O2 Sat by Pulse 100 100 100 Oximetry 04/21/16 04/21/16 04/21/16 00:21 00:31 01:00 Temperature Pulse Rate 71 79 78 Pulse Rate [ Bilateral Throughout] Pulse Rate [ From Monitor] Respiratory 10 L 19 Rate Respiratory Rate [Bilateral Throughout] Blood Pressure 99/62 126/78 107/64 O2 Sat by Pulse 100 100 99 Oximetry 04/21/16 04/21/16 04/21/16 01:30 01:46 02:00 Temperature Pulse Rate 74 73 Pulse Rate [ 74 Bilateral Throughout] Pulse Rate [ From Monitor] Respiratory 20 14 Rate Respiratory 21 Rate [Bilateral Throughout] Blood Pressure 98/62 97/58 O2 Sat by Pulse 100 100 Oximetry 04/21/16 04/21/16 04/21/16 02:05 02:30 02:31 Temperature Pulse Rate 73 73 Pulse Rate [ 74 Bilateral Throughout] Pulse Rate [ From Monitor] Respiratory 18 17 Rate Respiratory 14 Rate [Bilateral Throughout] Blood Pressure 100/64 100/64 O2 Sat by Pulse 100 100 Oximetry 04/21/16 04/21/16 04/21/16 03:00 03:05 03:30 Temperature Pulse Rate 72 70 72 Pulse Rate [ Bilateral Throughout] Pulse Rate [ From Monitor] Respiratory 18 14 18 Rate Respiratory Rate [Bilateral Throughout] Blood Pressure 104/63 104/63 109/68 O2 Sat by Pulse 100 100 100 Oximetry 04/21/16 04/21/16 04/21/16 04:00 04:21 04:30 Temperature 98.1 F Pulse Rate 73 76 78 Pulse Rate [ Bilateral Throughout] Pulse Rate [ 78 From Monitor] Respiratory 19 20 22 Rate Respiratory Rate [Bilateral Throughout] Blood Pressure 109/67 122/75 128/74 O2 Sat by Pulse 100 100 100 Oximetry 04/21/16 04/21/16 04/21/16 04:53 05:00 05:01 Temperature Pulse Rate 80 75 72 Pulse Rate [ Bilateral Throughout] Pulse Rate [ From Monitor] Respiratory 15 13 Rate Respiratory Rate [Bilateral Throughout] Blood Pressure 134/84 111/63 111/63 O2 Sat by Pulse 100 100 100 Oximetry 04/21/16 04/21/16 04/21/16 05:30 06:00 06:05 Temperature Pulse Rate 79 79 82 Pulse Rate [ Bilateral Throughout] Pulse Rate [ From Monitor] Respiratory 20 19 23 Rate Respiratory Rate [Bilateral Throughout] Blood Pressure 123/71 119/69 119/69 O2 Sat by Pulse 100 100 100 Oximetry 04/21/16 04/21/16 04/21/16 06:30 07:00 07:30 Temperature Pulse Rate 80 82 78 Pulse Rate [ Bilateral Throughout] Pulse Rate [ From Monitor] Respiratory 20 15 23 Rate Respiratory Rate [Bilateral Throughout] Blood Pressure 114/68 116/68 107/66 O2 Sat by Pulse 100 100 100 Oximetry 04/21/16 04/21/16 04/21/16 07:56 08:00 08:05 Temperature 100.2 F H Pulse Rate 83 82 Pulse Rate [ 83 81 Bilateral Throughout] Pulse Rate [ 78 From Monitor] Respiratory 21 Rate Respiratory 15 14 Rate [Bilateral Throughout] Blood Pressure 106/65 118/69 O2 Sat by Pulse 100 100 Oximetry 04/21/16 04/21/16 04/21/16 08:31 08:32 08:39 Temperature Pulse Rate 97 H 99 H 80 Pulse Rate [ Bilateral Throughout] Pulse Rate [ From Monitor] Respiratory 21 13 Rate Respiratory Rate [Bilateral Throughout] Blood Pressure 147/88 127/77 147/88 O2 Sat by Pulse 98 100 Oximetry 04/21/16 04/21/16 04/21/16 09:00 09:30 10:00 Temperature Pulse Rate 72 72 73 Pulse Rate [ Bilateral Throughout] Pulse Rate [ From Monitor] Respiratory 23 20 23 Rate Respiratory Rate [Bilateral Throughout] Blood Pressure 104/64 99/62 101/63 O2 Sat by Pulse 98 98 100 Oximetry 04/21/16 04/21/16 04/21/16 10:15 10:18 10:31 Temperature Pulse Rate 74 74 83 Pulse Rate [ Bilateral Throughout] Pulse Rate [ From Monitor] Respiratory 43 H Rate Respiratory Rate [Bilateral Throughout] Blood Pressure 101/63 106/62 106/62 O2 Sat by Pulse 100 Oximetry 04/21/16 04/21/16 10:59 11:00 Temperature Pulse Rate 72 73 Pulse Rate [ Bilateral Throughout] Pulse Rate [ From Monitor] Respiratory 18 21 Rate Respiratory Rate [Bilateral Throughout] Blood Pressure 115/70 112/67 O2 Sat by Pulse 99 99 Oximetry Constitutional: no acute distress Eyes: non-icteric ENT: other (orally intubated and sedated) Neck: supple Effort: normal Ascultation: Bilateral: clear, rhonchi (occasional) Percussion: Bilateral: not dull Cardiovascular: regular rate and rhythm, irregular rhythm Gastrointestinal: normoactive bowel sounds, soft, non-tender Extremities: no cyanosis, no edema Neurologic: other (RASS 0 ) CBC and BMP: 04/21/16 04:29 04/21/16 04:29 ABG, PT/INR, D-dimer: ABG POC ABG pH 7.512 (7.35-7.45) H 04/21/16 04:55 POC ABG pCO2 25.4 (35-45) L 04/21/16 04:55 POC ABG pO2 91 (80-105) 04/21/16 04:55 POC ABG HCO3 20.4 04/21/16 04:55 POC ABG Total CO2 21 04/21/16 04:55 POC ABG O2 Sat 98 04/21/16 04:55 PT/INR, D-dimer PT 18.1 Sec. (12.2-14.9) H 04/21/16 04:29 INR 1.50 (0.87-1.13) H 04/21/16 04:29 Abnormal lab findings: Abnormal Labs 03/24/16 03/24/16 03/24/16 17:58 20:25 23:23 WBC RBC Hgb Hct MCV MCH MCHC RDW Plt Count Lymph % (Auto) [place] % (Auto) Lymph # [place] # Baso # Seg Neutrophils % Seg Neuts % (Manual) Lymphocytes % (Manual) Seg Neutrophils # Seg Neutrophils # Man Lymphocytes # (Manual) Monocytes # (Manual) PT INR APTT Heparin Anti-Xa Level POC ABG pH POC ABG pCO2 POC ABG pO2 Sodium 169 H* Potassium 3.5 L Chloride 130.3 H Carbon Dioxide BUN 28 H Creatinine 1.8 H Glucose POC Glucose 112 H Calcium Phosphorus Lactate Dehydrogenase Total Creatine Kinase NT-Pro-B Natriuret Pep Albumin Ryhau-9-Iofitjcsf Ehqvc-6-Xkonhxmun Beta Globulins PEP Interpretation Cholesterol 221 H LDL Cholesterol Direct 146 H Urine Creatinine 03/25/16 03/25/16 03/25/16 05:56 05:56 05:56 WBC 21.3 H RBC 6.32 H Hgb 16.7 H Hct 52.7 H MCV 83 L MCH 27 L MCHC RDW Plt Count Lymph % (Auto) [place] % (Auto) Lymph # [place] # Baso # Seg Neutrophils % Seg Neuts % (Manual) 91.0 H Lymphocytes % (Manual) 4.0 L Seg Neutrophils # Seg Neutrophils # Man 19.4 H Lymphocytes # (Manual) 0.9 L Monocytes # (Manual) 0.9 H PT INR APTT Heparin Anti-Xa Level POC ABG pH POC ABG pCO2 POC ABG pO2 Sodium 172 H* Potassium 3.5 L Chloride 130.4 H Carbon Dioxide BUN 29 H Creatinine 1.8 H Glucose 187 H POC Glucose Calcium Phosphorus Lactate Dehydrogenase 460 H Total Creatine Kinase NT-Pro-B Natriuret Pep Albumin Fxhqj-5-Cyxicyalb Vpoke-0-Apfctfiib Beta Globulins PEP Interpretation Cholesterol LDL Cholesterol Direct Urine Creatinine 03/25/16 03/25/16 03/25/16 07:55 12:19 13:00 WBC RBC Hgb Hct MCV MCH MCHC RDW Plt Count Lymph % (Auto) [place] % (Auto) Lymph # [place] # Baso # Seg Neutrophils % Seg Neuts % (Manual) Lymphocytes % (Manual) Seg Neutrophils # Seg Neutrophils # Man Lymphocytes # (Manual) Monocytes # (Manual) PT INR APTT Heparin Anti-Xa Level POC ABG pH POC ABG pCO2 POC ABG pO2 Sodium Potassium Chloride Carbon Dioxide BUN Creatinine Glucose POC Glucose 231 H 314 H Calcium Phosphorus Lactate Dehydrogenase Total Creatine Kinase NT-Pro-B Natriuret Pep Albumin 3.4 L Fwgmf-6-Bfxulmxlh 0.4 H Grhrv-0-Dkghsebkx 1.1 H Beta Globulins 0.6 H PEP Interpretation see below H Cholesterol LDL Cholesterol Direct Urine Creatinine 03/25/16 03/25/16 03/26/16 16:41 22:45 08:32 WBC RBC Hgb Hct MCV MCH MCHC RDW Plt Count Lymph % (Auto) [place] % (Auto) Lymph # [place] # Baso # Seg Neutrophils % Seg Neuts % (Manual) Lymphocytes % (Manual) Seg Neutrophils # Seg Neutrophils # Man Lymphocytes # (Manual) Monocytes # (Manual) PT INR APTT Heparin Anti-Xa Level POC ABG pH POC ABG pCO2 POC ABG pO2 Sodium Potassium Chloride Carbon Dioxide BUN Creatinine Glucose POC Glucose 444 H 326 H 360 H Calcium Phosphorus Lactate Dehydrogenase Total Creatine Kinase NT-Pro-B Natriuret Pep Albumin Iyelc-6-Dnsngwfus Rgztp-5-Nbnjtbmzj Beta Globulins PEP Interpretation Cholesterol LDL Cholesterol Direct Urine Creatinine 03/26/16 03/26/16 03/26/16 12:38 15:33 15:47 WBC RBC Hgb Hct MCV MCH MCHC RDW Plt Count Lymph % (Auto) [place] % (Auto) Lymph # [place] # Baso # Seg Neutrophils % Seg Neuts % (Manual) Lymphocytes % (Manual) Seg Neutrophils # Seg Neutrophils # Man Lymphocytes # (Manual) Monocytes # (Manual) PT INR APTT Heparin Anti-Xa Level POC ABG pH 7.511 H POC ABG pCO2 26.5 L POC ABG pO2 70 L Sodium Potassium Chloride Carbon Dioxide BUN Creatinine Glucose POC Glucose 280 H 174 H Calcium Phosphorus Lactate Dehydrogenase Total Creatine Kinase NT-Pro-B Natriuret Pep Albumin Ytrqt-6-Jcxfcsbpv Gjtes-9-Yxtbyrdfh Beta Globulins PEP Interpretation Cholesterol LDL Cholesterol Direct Urine Creatinine 03/26/16 03/26/16 03/26/16 16:47 16:47 18:51 WBC 14.0 H RBC 5.17 H Hgb Hct MCV MCH 26 L MCHC 31 L RDW Plt Count 139 L Lymph % (Auto) [place] % (Auto) Lymph # [place] # Baso # Seg Neutrophils % Seg Neuts % (Manual) Lymphocytes % (Manual) Seg Neutrophils # Seg Neutrophils # Man Lymphocytes # (Manual) Monocytes # (Manual) PT INR APTT Heparin Anti-Xa Level POC ABG pH POC ABG pCO2 33.9 L POC ABG pO2 150 H Sodium 164 H* Potassium 3.4 L Chloride 128.5 H Carbon Dioxide BUN 30 H Creatinine 2.2 H Glucose 121 H POC Glucose Calcium 8.1 L Phosphorus Lactate Dehydrogenase Total Creatine Kinase NT-Pro-B Natriuret Pep Albumin Giusm-0-Xczfetdjj Fzway-7-Dtznnlymy Beta Globulins PEP Interpretation Cholesterol LDL Cholesterol Direct Urine Creatinine 03/27/16 03/27/16 03/27/16 02:19 05:47 06:02 WBC RBC Hgb Hct MCV MCH MCHC RDW Plt Count Lymph % (Auto) [place] % (Auto) Lymph # [place] # Baso # Seg Neutrophils % Seg Neuts % (Manual) Lymphocytes % (Manual) Seg Neutrophils # Seg Neutrophils # Man Lymphocytes # (Manual) Monocytes # (Manual) PT INR APTT Heparin Anti-Xa Level POC ABG pH POC ABG pCO2 27.3 L 30.3 L POC ABG pO2 50 L 112 H Sodium 158 H Potassium Chloride 126.7 H Carbon Dioxide 20 L BUN 25 H Creatinine 1.7 H Glucose POC Glucose Calcium 7.0 L Phosphorus Lactate Dehydrogenase Total Creatine Kinase NT-Pro-B Natriuret Pep Albumin Jmacy-4-Warstwlzh Uxnzg-5-Shzffzqct Beta Globulins PEP Interpretation Cholesterol LDL Cholesterol Direct Urine Creatinine 03/27/16 03/27/16 03/27/16 07:51 09:20 11:45 WBC 14.2 H RBC Hgb Hct MCV 83 L MCH 27 L MCHC RDW Plt Count 113 L Lymph % (Auto) [place] % (Auto) Lymph # [place] # Baso # Seg Neutrophils % Seg Neuts % (Manual) Lymphocytes % (Manual) Seg Neutrophils # Seg Neutrophils # Man Lymphocytes # (Manual) Monocytes # (Manual) PT INR APTT Heparin Anti-Xa Level POC ABG pH POC ABG pCO2 POC ABG pO2 Sodium Potassium Chloride Carbon Dioxide BUN Creatinine Glucose POC Glucose 124 H 241 H Calcium Phosphorus Lactate Dehydrogenase Total Creatine Kinase NT-Pro-B Natriuret Pep Albumin Eytmm-8-Kuaieymyl Dimep-9-Qrzgnlusf Beta Globulins PEP Interpretation Cholesterol LDL Cholesterol Direct Urine Creatinine 03/27/16 03/27/16 03/28/16 16:39 22:03 03:29 WBC RBC Hgb Hct MCV MCH MCHC RDW Plt Count Lymph % (Auto) [place] % (Auto) Lymph # [place] # Baso # Seg Neutrophils % Seg Neuts % (Manual) Lymphocytes % (Manual) Seg Neutrophils # Seg Neutrophils # Man Lymphocytes # (Manual) Monocytes # (Manual) PT INR APTT Heparin Anti-Xa Level POC ABG pH POC ABG pCO2 POC ABG pO2 Sodium Potassium Chloride Carbon Dioxide BUN Creatinine Glucose POC Glucose 266 H 167 H 241 H Calcium Phosphorus Lactate Dehydrogenase Total Creatine Kinase NT-Pro-B Natriuret Pep Albumin Ebvth-7-Drqlsnotj Vjxas-4-Ornnlmpcg Beta Globulins PEP Interpretation Cholesterol LDL Cholesterol Direct Urine Creatinine 03/28/16 03/28/16 03/28/16 05:00 05:00 05:00 WBC RBC Hgb Hct MCV 83 L MCH 27 L MCHC RDW Plt Count 106 L Lymph % (Auto) [place] % (Auto) 10.1 H Lymph # [place] # 1.0 H Baso # Seg Neutrophils % 75.1 H Seg Neuts % (Manual) Lymphocytes % (Manual) Seg Neutrophils # Seg Neutrophils # Man Lymphocytes # (Manual) Monocytes # (Manual) PT INR APTT Heparin Anti-Xa Level POC ABG pH POC ABG pCO2 POC ABG pO2 Sodium 147 H D Potassium 3.1 L D Chloride 112.3 H Carbon Dioxide 21 L BUN Creatinine Glucose 208 H POC Glucose Calcium 7.0 L Phosphorus 2.2 L Lactate Dehydrogenase Total Creatine Kinase NT-Pro-B Natriuret Pep Albumin Uevps-6-Vsvpzsbpm Bpgcl-1-Iifhqiyex Beta Globulins PEP Interpretation Cholesterol LDL Cholesterol Direct Urine Creatinine 03/28/16 03/28/16 03/28/16 05:14 08:41 10:56 WBC RBC Hgb Hct MCV MCH MCHC RDW Plt Count Lymph % (Auto) [place] % (Auto) Lymph # [place] # Baso # Seg Neutrophils % Seg Neuts % (Manual) Lymphocytes % (Manual) Seg Neutrophils # Seg Neutrophils # Man Lymphocytes # (Manual) Monocytes # (Manual) PT INR APTT Heparin Anti-Xa Level POC ABG pH 7.457 H POC ABG pCO2 29.7 L 27.7 L POC ABG pO2 Sodium Potassium Chloride Carbon Dioxide BUN Creatinine Glucose POC Glucose 228 H Calcium Phosphorus Lactate Dehydrogenase Total Creatine Kinase NT-Pro-B Natriuret Pep Albumin [place]il-5-Lprpaccve Kkeqg-6-Vbmyavmfj Beta Globulins PEP Interpretation Cholesterol LDL Cholesterol Direct Urine Creatinine 03/28/16 03/28/16 03/28/16 11:37 13:29 16:22 WBC RBC Hgb Hct MCV MCH MCHC RDW Plt Count Lymph % (Auto) [place] % (Auto) Lymph # [place] # Baso # Seg Neutrophils % Seg Neuts % (Manual) Lymphocytes % (Manual) Seg Neutrophils # Seg Neutrophils # Man Lymphocytes # (Manual) Monocytes # (Manual) PT INR APTT Heparin Anti-Xa Level POC ABG pH POC ABG pCO2 POC ABG pO2 Sodium Potassium Chloride Carbon Dioxide BUN Creatinine Glucose POC Glucose 226 H 200 H Calcium Phosphorus Lactate Dehydrogenase Total Creatine Kinase 356 H NT-Pro-B Natriuret Pep Albumin Jumqp-4-Rxiuwlzdx Ditns-2-Bcabskvil Beta Globulins PEP Interpretation Cholesterol LDL Cholesterol Direct Urine Creatinine 03/28/16 03/29/16 03/29/16 21:48 04:50 04:50 WBC RBC Hgb 11.5 L Hct 35.3 L MCV 81 L MCH 26 L MCHC RDW Plt Count 97 L Lymph % (Auto) [place] % (Auto) 11.7 H Lymph # [place] # 1.1 H Baso # Seg Neutrophils % Seg Neuts % (Manual) Lymphocytes % (Manual) Seg Neutrophils # Seg Neutrophils # Man Lymphocytes # (Manual) Monocytes # (Manual) PT INR APTT Heparin Anti-Xa Level POC ABG pH POC ABG pCO2 POC ABG pO2 Sodium 136 L D Potassium 3.3 L Chloride Carbon Dioxide 20 L BUN Creatinine Glucose 386 H POC Glucose 188 H Calcium 6.8 L Phosphorus 1.6 L D Lactate Dehydrogenase Total Creatine Kinase NT-Pro-B Natriuret Pep Albumin Zeylg-2-Gxwavncrs Iimlp-5-Aqgbxlyhh Beta Globulins PEP Interpretation Cholesterol LDL Cholesterol Direct Urine Creatinine 03/29/16 03/29/16 03/29/16 08:10 11:12 16:09 WBC RBC Hgb Hct MCV MCH MCHC RDW Plt Count Lymph % (Auto) [place] % (Auto) Lymph # [place] # Baso # Seg Neutrophils % Seg Neuts % (Manual) Lymphocytes % (Manual) Seg Neutrophils # Seg Neutrophils # Man Lymphocytes # (Manual) Monocytes # (Manual) PT INR APTT Heparin Anti-Xa Level POC ABG pH POC ABG pCO2 POC ABG pO2 Sodium Potassium Chloride Carbon Dioxide BUN Creatinine Glucose POC Glucose 230 H 180 H 46 L Calcium Phosphorus Lactate Dehydrogenase Total Creatine Kinase NT-Pro-B Natriuret Pep Albumin Ytsch-4-Qatimucph Npauj-9-Yovuvhdtk Beta Globulins PEP Interpretation Cholesterol LDL Cholesterol Direct Urine Creatinine 03/29/16 03/29/16 03/30/16 16:12 18:15 02:53 WBC RBC Hgb Hct MCV MCH MCHC RDW Plt Count Lymph % (Auto) [place] % (Auto) Lymph # [place] # Baso # Seg Neutrophils % Seg Neuts % (Manual) Lymphocytes % (Manual) Seg Neutrophils # Seg Neutrophils # Man Lymphocytes # (Manual) Monocytes # (Manual) PT INR APTT Heparin Anti-Xa Level POC ABG pH POC ABG pCO2 POC ABG pO2 Sodium Potassium Chloride Carbon Dioxide BUN Creatinine Glucose POC Glucose 52 L 118 H 130 H Calcium Phosphorus Lactate Dehydrogenase Total Creatine Kinase NT-Pro-B Natriuret Pep Albumin Ltxup-4-Ttdxdyble Zlgni-3-Nbkgdatno Beta Globulins PEP Interpretation Cholesterol LDL Cholesterol Direct Urine Creatinine 03/30/16 03/30/16 03/30/16 04:00 04:00 05:29 WBC RBC Hgb Hct MCV 81 L MCH 26 L MCHC RDW Plt Count 116 L Lymph % (Auto) 10.8 L [place] % (Auto) 13.1 H Lymph # 1.0 L [place] # 1.3 H Baso # Seg Neutrophils % 74.2 H Seg Neuts % (Manual) Lymphocytes % (Manual) Seg Neutrophils # Seg Neutrophils # Man Lymphocytes # (Manual) Monocytes # (Manual) PT INR APTT Heparin Anti-Xa Level POC ABG pH 7.522 H POC ABG pCO2 22.7 L POC ABG pO2 137 H Sodium 147 H D Potassium Chloride 115.5 H Carbon Dioxide 20 L BUN Creatinine Glucose 116 H POC Glucose Calcium 7.6 L Phosphorus 2.3 L D Lactate Dehydrogenase Total Creatine Kinase NT-Pro-B Natriuret Pep Albumin Zxizk-9-Fqyreyqyd Rrsha-4-Qvnyfixua Beta Globulins PEP Interpretation Cholesterol LDL Cholesterol Direct Urine Creatinine 1103/30/16 03/30/16 05:47 08:05 08:59 WBC RBC Hgb Hct MCV MCH MCHC RDW Plt Count Lymph % (Auto) [place] % (Auto) Lymph # [place] # Baso # Seg Neutrophils % Seg Neuts % (Manual) Lymphocytes % (Manual) Seg Neutrophils # Seg Neutrophils # Man Lymphocytes # (Manual) Monocytes # (Manual) PT INR APTT Heparin Anti-Xa Level POC ABG pH POC ABG pCO2 26.2 L POC ABG pO2 115 H Sodium Potassium Chloride Carbon Dioxide BUN Creatinine Glucose POC Glucose 138 H 171 H Calcium Phosphorus Lactate Dehydrogenase Total Creatine Kinase NT-Pro-B Natriuret Pep Albumin Qwohy-0-Agcmfoebg Peycz-9-Bkeneulsf Beta Globulins PEP Interpretation Cholesterol LDL Cholesterol Direct Urine Creatinine 03/30/16 03/30/16 03/30/16 12:11 12:11 16:39 WBC RBC Hgb Hct MCV MCH MCHC RDW Plt Count Lymph % (Auto) [place] % (Auto) Lymph # [place] # Baso # Seg Neutrophils % Seg Neuts % (Manual) Lymphocytes % (Manual) Seg Neutrophils # Seg Neutrophils # Man Lymphocytes # (Manual) Monocytes # (Manual) PT INR APTT Heparin Anti-Xa Level POC ABG pH 7.476 H POC ABG pCO2 29.0 L POC ABG pO2 Sodium Potassium Chloride Carbon Dioxide BUN Creatinine Glucose POC Glucose 142 H 59 L Calcium Phosphorus Lactate Dehydrogenase Total Creatine Kinase NT-Pro-B Natriuret Pep Albumin Urqvp-9-Lohcbunyo Strua-6-Qbxilhgjy Beta Globulins PEP Interpretation Cholesterol LDL Cholesterol Direct Urine Creatinine 03/30/16 03/30/16 03/31/16 18:41 21:59 05:02 WBC RBC Hgb Hct MCV MCH MCHC RDW Plt Count Lymph % (Auto) [place] % (Auto) Lymph # [place] # Baso # Seg Neutrophils % Seg Neuts % (Manual) Lymphocytes % (Manual) Seg Neutrophils # Seg Neutrophils # Man Lymphocytes # (Manual) Monocytes # (Manual) PT INR APTT Heparin Anti-Xa Level POC ABG pH 7.519 H POC ABG pCO2 21.8 L POC ABG pO2 142 H Sodium Potassium Chloride Carbon Dioxide BUN Creatinine Glucose POC Glucose 145 H 154 H Calcium Phosphorus Lactate Dehydrogenase Total Creatine Kinase NT-Pro-B Natriuret Pep Albumin Pyfim-6-Onglakuai Mhxrn-4-Ssadggfnk Beta Globulins PEP Interpretation Cholesterol LDL Cholesterol Direct Urine Creatinine 03/31/16 03/31/16 03/31/16 05:15 05:15 05:15 WBC 13.4 H RBC 5.21 H Hgb Hct MCV 81 L MCH 26 L MCHC RDW Plt Count Lymph % (Auto) 9.5 L [place] % (Auto) 14.0 H Lymph # [place] # 1.9 H Baso # Seg Neutrophils % 75.0 H Seg Neuts % (Manual) Lymphocytes % (Manual) Seg Neutrophils # 10.1 H Seg Neutrophils # Man Lymphocytes # (Manual) Monocytes # (Manual) PT INR APTT Heparin Anti-Xa Level POC ABG pH POC ABG pCO2 POC ABG pO2 Sodium Potassium Chloride 108.5 H Carbon Dioxide 19 L BUN Creatinine Glucose 188 H POC Glucose Calcium Phosphorus Lactate Dehydrogenase Total Creatine Kinase NT-Pro-B Natriuret Pep 1089 H Albumin Sxxgm-7-Enhkcrauz Hrvjd-5-Dizmspqug Beta Globulins PEP Interpretation Cholesterol LDL Cholesterol Direct Urine Creatinine 03/31/16 03/31/16 03/31/16 07:23 11:12 15:20 WBC RBC Hgb Hct MCV MCH MCHC RDW Plt Count Lymph % (Auto) [place] % (Auto) Lymph # [place] # Baso # Seg Neutrophils % Seg Neuts % (Manual) Lymphocytes % (Manual) Seg Neutrophils # Seg Neutrophils # Man Lymphocytes # (Manual) Monocytes # (Manual) PT INR APTT Heparin Anti-Xa Level POC ABG pH POC ABG pCO2 POC ABG pO2 Sodium Potassium Chloride Carbon Dioxide BUN Creatinine Glucose POC Glucose 233 H 228 H 208 H Calcium Phosphorus Lactate Dehydrogenase Total Creatine Kinase NT-Pro-B Natriuret Pep Albumin Miiho-2-Cmmcoeauf Ervtv-0-Qwmwhsyga Beta Globulins PEP Interpretation Cholesterol LDL Cholesterol Direct Urine Creatinine 03/31/16 04/01/16 04/01/16 21:27 04:41 05:35 WBC 12.1 H RBC Hgb Hct MCV 81 L MCH 26 L MCHC RDW Plt Count Lymph % (Auto) 8.5 L [place] % (Auto) 14.0 H Lymph # 1.0 L [place] # 1.7 H Baso # Seg Neutrophils % 76.2 H Seg Neuts % (Manual) Lymphocytes % (Manual) Seg Neutrophils # 9.2 H Seg Neutrophils # Man Lymphocytes # (Manual) Monocytes # (Manual) PT INR APTT Heparin Anti-Xa Level POC ABG pH 7.455 H POC ABG pCO2 31.0 L POC ABG pO2 Sodium Potassium Chloride Carbon Dioxide BUN Creatinine Glucose POC Glucose 162 H Calcium Phosphorus Lactate Dehydrogenase Total Creatine Kinase NT-Pro-B Natriuret Pep Albumin Lsmyj-6-Etgolygwq Qwjwp-7-Augsiaqcu Beta Globulins PEP Interpretation Cholesterol LDL Cholesterol Direct Urine Creatinine 04/01/16 04/01/16 04/01/16 05:35 08:44 12:49 WBC RBC Hgb Hct MCV MCH MCHC RDW Plt Count Lymph % (Auto) [place] % (Auto) Lymph # [place] # Baso # Seg Neutrophils % Seg Neuts % (Manual) Lymphocytes % (Manual) Seg Neutrophils # Seg Neutrophils # Man Lymphocytes # (Manual) Monocytes # (Manual) PT INR APTT Heparin Anti-Xa Level POC ABG pH POC ABG pCO2 POC ABG pO2 Sodium Potassium Chloride Carbon Dioxide BUN Creatinine Glucose 256 H POC Glucose 257 H 279 H Calcium 8.0 L Phosphorus Lactate Dehydrogenase Total Creatine Kinase NT-Pro-B Natriuret Pep 1205 H Albumin Xvtow-3-Jfurzjtte Tnrds-0-Jzgalwyyo Beta Globulins PEP Interpretation Cholesterol LDL Cholesterol Direct Urine Creatinine 04/01/16 04/02/16 04/02/16 18:12 00:42 04:17 WBC RBC Hgb Hct MCV MCH MCHC RDW Plt Count Lymph % (Auto) [place] % (Auto) Lymph # [place] # Baso # Seg Neutrophils % Seg Neuts % (Manual) Lymphocytes % (Manual) Seg Neutrophils # Seg Neutrophils # Man Lymphocytes # (Manual) Monocytes # (Manual) PT INR APTT Heparin Anti-Xa Level POC ABG pH 7.582 H POC ABG pCO2 26.8 L POC ABG pO2 Sodium Potassium Chloride Carbon Dioxide BUN Creatinine Glucose POC Glucose 168 H 282 H Calcium Phosphorus Lactate Dehydrogenase Total Creatine Kinase NT-Pro-B Natriuret Pep Albumin Pblgg-8-Brjfvpysp Evozw-4-Cqaqyalgq Beta Globulins PEP Interpretation Cholesterol LDL Cholesterol Direct Urine Creatinine 04/02/16 04/02/16 04/02/16 05:00 05:00 06:27 WBC 12.4 H RBC Hgb Hct MCV 81 L MCH 26 L MCHC RDW Plt Count Lymph % (Auto) 6.4 L [place] % (Auto) 13.3 H Lymph # 0.8 L [place] # 1.7 H Baso # Seg Neutrophils % 79.4 H Seg Neuts % (Manual) Lymphocytes % (Manual) Seg Neutrophils # 9.9 H Seg Neutrophils # Man Lymphocytes # (Manual) Monocytes # (Manual) PT INR APTT Heparin Anti-Xa Level POC ABG pH POC ABG pCO2 POC ABG pO2 Sodium 146 H Potassium Chloride Carbon Dioxide BUN Creatinine Glucose 334 H POC Glucose 317 H Calcium 8.0 L Phosphorus Lactate Dehydrogenase Total Creatine Kinase NT-Pro-B Natriuret Pep Albumin Teaxr-1-Kxcymdbio Ymgkp-5-Vijhaaows Beta Globulins PEP Interpretation Cholesterol LDL Cholesterol Direct Urine Creatinine 04/02/16 04/02/16 04/02/16 11:51 13:10 17:24 WBC RBC Hgb Hct MCV MCH MCHC RDW Plt Count Lymph % (Auto) [place] % (Auto) Lymph # [place] # Baso # Seg Neutrophils % Seg Neuts % (Manual) Lymphocytes % (Manual) Seg Neutrophils # Seg Neutrophils # Man Lymphocytes # (Manual) Monocytes # (Manual) PT INR APTT Heparin Anti-Xa Level POC ABG pH 7.518 H POC ABG pCO2 POC ABG pO2 Sodium Potassium Chloride Carbon Dioxide BUN Creatinine Glucose POC Glucose 278 H 195 H Calcium Phosphorus Lactate Dehydrogenase Total Creatine Kinase NT-Pro-B Natriuret Pep Albumin Vphtn-5-Cvixbxkxq Umrif-5-Grcwzctte Beta Globulins PEP Interpretation Cholesterol LDL Cholesterol Direct Urine Creatinine 04/03/16 04/03/16 04/03/16 00:18 04:10 04:10 WBC 14.3 H RBC Hgb Hct MCV 81 L MCH 26 L MCHC RDW Plt Count Lymph % (Auto) 9.0 L [place] % (Auto) 10.7 H Lymph # [place] # 1.5 H Baso # 0.2 H Seg Neutrophils % 78.5 H Seg Neuts % (Manual) Lymphocytes % (Manual) Seg Neutrophils # 11.3 H Seg Neutrophils # Man Lymphocytes # (Manual) Monocytes # (Manual) PT INR APTT Heparin Anti-Xa Level POC ABG pH POC ABG pCO2 POC ABG pO2 Sodium 148 H Potassium Chloride 108.1 H Carbon Dioxide BUN 21 H Creatinine Glucose 227 H POC Glucose 144 H Calcium 8.2 L Phosphorus Lactate Dehydrogenase Total Creatine Kinase NT-Pro-B Natriuret Pep Albumin Lbhxf-3-Bzjfevyxv Pzqws-5-Uhjttbkie Beta Globulins PEP Interpretation Cholesterol LDL Cholesterol Direct Urine Creatinine 04/03/16 04/03/16 04/04/16 11:14 17:10 04:00 WBC 14.5 H RBC Hgb Hct MCV 81 L MCH 26 L MCHC RDW Plt Count Lymph % (Auto) 7.2 L [place] % (Auto) 7.6 H Lymph # 1.0 L [place] # 1.1 H Baso # Seg Neutrophils % 84.5 H Seg Neuts % (Manual) Lymphocytes % (Manual) Seg Neutrophils # 12.3 H Seg Neutrophils # Man Lymphocytes # (Manual) Monocytes # (Manual) PT INR APTT Heparin Anti-Xa Level POC ABG pH POC ABG pCO2 POC ABG pO2 Sodium Potassium Chloride Carbon Dioxide BUN Creatinine Glucose POC Glucose 267 H 212 H Calcium Phosphorus Lactate Dehydrogenase Total Creatine Kinase NT-Pro-B Natriuret Pep Albumin Mdrcc-5-Ruphctchy Etuvy-6-Rurtxgeau Beta Globulins PEP Interpretation Cholesterol LDL Cholesterol Direct Urine Creatinine 04/04/16 04/04/16 04/04/16 05:00 09:55 09:55 WBC RBC Hgb 11.5 L Hct MCV MCH MCHC RDW Plt Count Lymph % (Auto) [place] % (Auto) Lymph # [place] # Baso # Seg Neutrophils % Seg Neuts % (Manual) Lymphocytes % (Manual) Seg Neutrophils # Seg Neutrophils # Man Lymphocytes # (Manual) Monocytes # (Manual) PT INR APTT 42.1 H Heparin Anti-Xa Level POC ABG pH POC ABG pCO2 POC ABG pO2 Sodium 146 H Potassium Chloride Carbon Dioxide BUN 22 H Creatinine Glucose 128 H POC Glucose Calcium Phosphorus Lactate Dehydrogenase Total Creatine Kinase NT-Pro-B Natriuret Pep Albumin Plsyt-9-Rovunymmr Dfebg-7-Yswjggesq Beta Globulins PEP Interpretation Cholesterol LDL Cholesterol Direct Urine Creatinine 04/04/16 04/04/16 04/04/16 11:45 17:49 17:55 WBC RBC Hgb Hct MCV MCH MCHC RDW Plt Count Lymph % (Auto) [place] % (Auto) Lymph # [place] # Baso # Seg Neutrophils % Seg Neuts % (Manual) Lymphocytes % (Manual) Seg Neutrophils # Seg Neutrophils # Man Lymphocytes # (Manual) Monocytes # (Manual) PT INR APTT Heparin Anti-Xa Level 1.19 H POC ABG pH POC ABG pCO2 POC ABG pO2 Sodium Potassium Chloride Carbon Dioxide BUN Creatinine Glucose POC Glucose 231 H 186 H Calcium Phosphorus Lactate Dehydrogenase Total Creatine Kinase NT-Pro-B Natriuret Pep Albumin Wfexl-2-Uuqvgimqi Uwecu-1-Rvapztopk Beta Globulins PEP Interpretation Cholesterol LDL Cholesterol Direct Urine Creatinine 04/05/16 04/05/16 04/05/16 00:35 05:32 05:42 WBC RBC Hgb Hct MCV MCH MCHC RDW Plt Count Lymph % (Auto) [place] % (Auto) Lymph # [place] # Baso # Seg Neutrophils % Seg Neuts % (Manual) Lymphocytes % (Manual) Seg Neutrophils # Seg Neutrophils # Man Lymphocytes # (Manual) Monocytes # (Manual) PT INR APTT Heparin Anti-Xa Level POC ABG pH 7.491 H POC ABG pCO2 POC ABG pO2 Sodium Potassium Chloride Carbon Dioxide BUN Creatinine Glucose POC Glucose 192 H 242 H Calcium Phosphorus Lactate Dehydrogenase Total Creatine Kinase NT-Pro-B Natriuret Pep Albumin Rnrbr-2-Uvgeccenz Hdfor-5-Slcqppmbh Beta Globulins PEP Interpretation Cholesterol LDL Cholesterol Direct Urine Creatinine 04/05/16 04/05/16 04/05/16 06:20 06:20 12:19 WBC 13.9 H RBC Hgb 11.6 L Hct MCV 81 L MCH 26 L MCHC RDW Plt Count Lymph % (Auto) 9.6 L [place] % (Auto) 8.7 H Lymph # [place] # 1.2 H Baso # Seg Neutrophils % 80.9 H Seg Neuts % (Manual) Lymphocytes % (Manual) Seg Neutrophils # 11.3 H Seg Neutrophils # Man Lymphocytes # (Manual) Monocytes # (Manual) PT INR APTT Heparin Anti-Xa Level POC ABG pH POC ABG pCO2 POC ABG pO2 Sodium 148 H Potassium Chloride Carbon Dioxide BUN 23 H Creatinine Glucose 242 H POC Glucose 187 H Calcium Phosphorus Lactate Dehydrogenase Total Creatine Kinase NT-Pro-B Natriuret Pep Albumin Scuwv-5-Tiraqxgbu Pfgap-0-Mxkwklgth Beta Globulins PEP Interpretation Cholesterol LDL Cholesterol Direct Urine Creatinine 04/05/16 04/05/16 04/06/16 17:10 23:45 05:23 WBC 13.0 H RBC Hgb Hct MCV 82 L MCH 26 L MCHC 31 L RDW Plt Count Lymph % (Auto) 6.7 L [place] % (Auto) 8.3 H Lymph # 0.9 L [place] # 1.1 H Baso # Seg Neutrophils % 84.6 H Seg Neuts % (Manual) Lymphocytes % (Manual) Seg Neutrophils # 11.0 H Seg Neutrophils # Man Lymphocytes # (Manual) Monocytes # (Manual) PT INR APTT Heparin Anti-Xa Level POC ABG pH POC ABG pCO2 POC ABG pO2 Sodium Potassium Chloride Carbon Dioxide BUN Creatinine Glucose POC Glucose 169 H 202 H Calcium Phosphorus Lactate Dehydrogenase Total Creatine Kinase NT-Pro-B Natriuret Pep Albumin Nwifs-0-Zlfdtpulr Mhgpu-5-Aexaymaqh Beta Globulins PEP Interpretation Cholesterol LDL Cholesterol Direct Urine Creatinine 04/06/16 04/06/16 04/06/16 05:23 05:23 06:11 WBC RBC Hgb Hct MCV MCH MCHC RDW Plt Count Lymph % (Auto) [place] % (Auto) Lymph # [place] # Baso # Seg Neutrophils % Seg Neuts % (Manual) Lymphocytes % (Manual) Seg Neutrophils # Seg Neutrophils # Man Lymphocytes # (Manual) Monocytes # (Manual) PT INR APTT Heparin Anti-Xa Level 0.21 L POC ABG pH POC ABG pCO2 POC ABG pO2 Sodium 153 H Potassium Chloride 111.3 H Carbon Dioxide BUN 22 H Creatinine Glucose 62 L POC Glucose 56 L Calcium Phosphorus Lactate Dehydrogenase Total Creatine Kinase NT-Pro-B Natriuret Pep Albumin Ebwvc-4-Zvaqfrzoo Nlitj-1-Zmodneiyt Beta Globulins PEP Interpretation Cholesterol LDL Cholesterol Direct Urine Creatinine 04/06/16 04/06/16 04/06/16 06:52 11:36 14:58 WBC RBC Hgb Hct MCV MCH MCHC RDW Plt Count Lymph % (Auto) [place] % (Auto) Lymph # [place] # Baso # Seg Neutrophils % Seg Neuts % (Manual) Lymphocytes % (Manual) Seg Neutrophils # Seg Neutrophils # Man Lymphocytes # (Manual) Monocytes # (Manual) PT INR APTT Heparin Anti-Xa Level POC ABG pH POC ABG pCO2 POC ABG pO2 Sodium Potassium Chloride Carbon Dioxide BUN Creatinine Glucose POC Glucose 206 H 139 H 147 H Calcium Phosphorus Lactate Dehydrogenase Total Creatine Kinase NT-Pro-B Natriuret Pep Albumin Ecsct-0-Lhafxnjso Ncldp-3-Riybzlrwq Beta Globulins PEP Interpretation Cholesterol LDL Cholesterol Direct Urine Creatinine 04/06/16 04/06/16 04/06/16 16:03 21:18 23:53 WBC RBC Hgb Hct MCV MCH MCHC RDW Plt Count Lymph % (Auto) [place] % (Auto) Lymph # [place] # Baso # Seg Neutrophils % Seg Neuts % (Manual) Lymphocytes % (Manual) Seg Neutrophils # Seg Neutrophils # Man Lymphocytes # (Manual) Monocytes # (Manual) PT INR APTT Heparin Anti-Xa Level POC ABG pH POC ABG pCO2 POC ABG pO2 Sodium Potassium Chloride Carbon Dioxide BUN Creatinine Glucose POC Glucose 154 H 293 H 301 H Calcium Phosphorus Lactate Dehydrogenase Total Creatine Kinase NT-Pro-B Natriuret Pep Albumin Nljae-7-Flftkqlwk Ctmsr-2-Uixowzxqf Beta Globulins PEP Interpretation Cholesterol LDL Cholesterol Direct Urine Creatinine 04/07/16 04/07/16 04/07/16 02:30 05:11 05:11 WBC 12.5 H RBC Hgb 11.5 L Hct MCV 82 L MCH 26 L MCHC 31 L RDW Plt Count Lymph % (Auto) [place] % (Auto) Lymph # [place] # Baso # Seg Neutrophils % Seg Neuts % (Manual) Lymphocytes % (Manual) Seg Neutrophils # Seg Neutrophils # Man Lymphocytes # (Manual) Monocytes # (Manual) PT INR APTT Heparin Anti-Xa Level 0.11 L POC ABG pH POC ABG pCO2 POC ABG pO2 Sodium 150 H Potassium Chloride 109.5 H Carbon Dioxide BUN 28 H Creatinine Glucose 264 H POC Glucose Calcium Phosphorus Lactate Dehydrogenase Total Creatine Kinase NT-Pro-B Natriuret Pep Albumin Peidu-8-Szgqvlswg Vxjzf-5-Qdfxxhmyy Beta Globulins PEP Interpretation Cholesterol LDL Cholesterol Direct Urine Creatinine 04/07/16 04/07/16 04/07/16 06:46 10:18 11:50 WBC RBC Hgb Hct MCV MCH MCHC RDW Plt Count Lymph % (Auto) [place] % (Auto) Lymph # [place] # Baso # Seg Neutrophils % Seg Neuts % (Manual) Lymphocytes % (Manual) Seg Neutrophils # Seg Neutrophils # Man Lymphocytes # (Manual) Monocytes # (Manual) PT 15.1 H INR 1.20 H APTT Heparin Anti-Xa Level POC ABG pH POC ABG pCO2 POC ABG pO2 Sodium Potassium Chloride Carbon Dioxide BUN Creatinine Glucose POC Glucose 259 H 288 H Calcium Phosphorus Lactate Dehydrogenase Total Creatine Kinase NT-Pro-B Natriuret Pep Albumin Cufsx-9-[place]wi Fzxdo-4-Qjpcqdkrw Beta Globulins PEP Interpretation Cholesterol LDL Cholesterol Direct Urine Creatinine 04/07/16 04/08/16 04/08/16 17:58 01:25 06:49 WBC RBC Hgb Hct MCV MCH MCHC RDW Plt Count Lymph % (Auto) [place] % (Auto) Lymph # [place] # Baso # Seg Neutrophils % Seg Neuts % (Manual) Lymphocytes % (Manual) Seg Neutrophils # Seg Neutrophils # Man Lymphocytes # (Manual) Monocytes # (Manual) PT INR APTT Heparin Anti-Xa Level POC ABG pH POC ABG pCO2 POC ABG pO2 Sodium 156 H Potassium Chloride 114.7 H Carbon Dioxide BUN 33 H Creatinine Glucose 169 H POC Glucose 330 H 146 H Calcium Phosphorus Lactate Dehydrogenase Total Creatine Kinase NT-Pro-B Natriuret Pep Albumin Rqjaj-0-Vsdmdclwf Fzoro-2-Tmookzxzu Beta Globulins PEP Interpretation Cholesterol LDL Cholesterol Direct Urine Creatinine 04/08/16 04/08/16 04/08/16 07:34 10:28 10:28 WBC RBC Hgb Hct MCV MCH MCHC RDW Plt Count Lymph % (Auto) [place] % (Auto) Lymph # [place] # Baso # Seg Neutrophils % Seg Neuts % (Manual) Lymphocytes % (Manual) Seg Neutrophils # Seg Neutrophils # Man Lymphocytes # (Manual) Monocytes # (Manual) PT 15.5 H INR 1.24 H APTT Heparin Anti-Xa Level 0.24 L POC ABG pH POC ABG pCO2 POC ABG pO2 Sodium Potassium Chloride Carbon Dioxide BUN Creatinine Glucose POC Glucose 232 H Calcium Phosphorus Lactate Dehydrogenase Total Creatine Kinase NT-Pro-B Natriuret Pep Albumin Hnqkm-5-Lcowvrxqx Vwmzq-2-Epbvvullw Beta Globulins PEP Interpretation Cholesterol LDL Cholesterol Direct Urine Creatinine 04/08/16 04/08/16 04/09/16 11:36 15:38 00:01 WBC RBC Hgb Hct MCV MCH MCHC RDW Plt Count Lymph % (Auto) [place] % (Auto) Lymph # [place] # Baso # Seg Neutrophils % Seg Neuts % (Manual) Lymphocytes % (Manual) Seg Neutrophils # Seg Neutrophils # Man Lymphocytes # (Manual) Monocytes # (Manual) PT INR APTT Heparin Anti-Xa Level POC ABG pH POC ABG pCO2 POC ABG pO2 Sodium Potassium Chloride Carbon Dioxide BUN Creatinine Glucose POC Glucose 193 H 163 H 180 H Calcium Phosphorus Lactate Dehydrogenase Total Creatine Kinase NT-Pro-B Natriuret Pep Albumin Fnfyc-4-Xapurzsod Fuioy-0-Wtavedbyk Beta Globulins PEP Interpretation Cholesterol LDL Cholesterol Direct Urine Creatinine 04/09/16 04/09/16 04/09/16 06:17 06:42 06:42 WBC RBC Hgb Hct MCV MCH MCHC RDW Plt Count Lymph % (Auto) [place] % (Auto) Lymph # [place] # Baso # Seg Neutrophils % Seg Neuts % (Manual) Lymphocytes % (Manual) Seg Neutrophils # Seg Neutrophils # Man Lymphocytes # (Manual) Monocytes # (Manual) PT 17.4 H INR 1.43 H APTT Heparin Anti-Xa Level POC ABG pH POC ABG pCO2 POC ABG pO2 Sodium 153 H Potassium Chloride 113.2 H Carbon Dioxide BUN 29 H Creatinine Glucose 301 H POC Glucose 249 H Calcium 8.3 L Phosphorus Lactate Dehydrogenase Total Creatine Kinase NT-Pro-B Natriuret Pep Albumin Wanos-5-Ckvjhtwck Rbfux-6-Ozagbuiil Beta Globulins PEP Interpretation Cholesterol LDL Cholesterol Direct Urine Creatinine 04/09/16 04/09/16 04/09/16 07:37 11:26 15:45 WBC RBC Hgb Hct MCV MCH MCHC RDW Plt Count Lymph % (Auto) [place] % (Auto) Lymph # [place] # Baso # Seg Neutrophils % Seg Neuts % (Manual) Lymphocytes % (Manual) Seg Neutrophils # Seg Neutrophils # Man Lymphocytes # (Manual) Monocytes # (Manual) PT INR APTT Heparin Anti-Xa Level POC ABG pH POC ABG pCO2 POC ABG pO2 Sodium Potassium Chloride Carbon Dioxide BUN Creatinine Glucose POC Glucose 283 H 306 H 354 H Calcium Phosphorus Lactate Dehydrogenase Total Creatine Kinase NT-Pro-B Natriuret Pep Albumin Plwlk-9-Iakdpbijl Lrukh-8-Zittmnmsm Beta Globulins PEP Interpretation Cholesterol LDL Cholesterol Direct Urine Creatinine 04/10/16 04/10/16 04/10/16 00:53 07:15 07:34 WBC RBC Hgb 11.3 L Hct MCV MCH MCHC RDW Plt Count Lymph % (Auto) [place] % (Auto) Lymph # [place] # Baso # Seg Neutrophils % Seg Neuts % (Manual) Lymphocytes % (Manual) Seg Neutrophils # Seg Neutrophils # Man Lymphocytes # (Manual) Monocytes # (Manual) PT INR APTT Heparin Anti-Xa Level POC ABG pH POC ABG pCO2 POC ABG pO2 Sodium Potassium Chloride Carbon Dioxide BUN Creatinine Glucose POC Glucose 323 H 311 H Calcium Phosphorus Lactate Dehydrogenase Total Creatine Kinase NT-Pro-B Natriuret Pep Albumin Zhlef-9-Ycoeiphij Ilyre-7-Nnjuqmlrj Beta Globulins PEP Interpretation Cholesterol LDL Cholesterol Direct Urine Creatinine 04/10/16 04/10/16 04/10/16 07:34 07:34 11:25 WBC RBC Hgb Hct MCV MCH MCHC RDW Plt Count Lymph % (Auto) [place] % (Auto) Lymph # [place] # Baso # Seg Neutrophils % Seg Neuts % (Manual) Lymphocytes % (Manual) Seg Neutrophils # Seg Neutrophils # Man Lymphocytes # (Manual) Monocytes # (Manual) PT 17.3 H INR 1.42 H APTT Heparin Anti-Xa Level POC ABG pH POC ABG pCO2 POC ABG pO2 Sodium 158 H Potassium Chloride 118.6 H Carbon Dioxide BUN 30 H Creatinine Glucose 330 H POC Glucose 335 H Calcium 8.3 L Phosphorus Lactate Dehydrogenase Total Creatine Kinase NT-Pro-B Natriuret Pep Albumin Rkkdv-2-Bwtvwfrww Bvwqb-3-Brihnopvs Beta Globulins PEP Interpretation Cholesterol LDL Cholesterol Direct Urine Creatinine 04/10/16 04/11/16 04/11/16 16:21 00:29 07:47 WBC RBC Hgb Hct MCV MCH MCHC RDW Plt Count Lymph % (Auto) [place] % (Auto) Lymph # [place] # Baso # Seg Neutrophils % Seg Neuts % (Manual) Lymphocytes % (Manual) Seg Neutrophils # Seg Neutrophils # Man Lymphocytes # (Manual) Monocytes # (Manual) PT 18.4 H INR 1.53 H APTT Heparin Anti-Xa Level POC ABG pH POC ABG pCO2 POC ABG pO2 Sodium Potassium Chloride Carbon Dioxide BUN Creatinine Glucose POC Glucose 230 H 162 H Calcium Phosphorus Lactate Dehydrogenase Total Creatine Kinase NT-Pro-B Natriuret Pep Albumin Dnklp-0-Upypuqubs Kogzd-2-Hxccqpkgm Beta Globulins PEP Interpretation Cholesterol LDL Cholesterol Direct Urine Creatinine 04/11/16 04/11/16 04/12/16 07:47 11:22 04:54 WBC RBC Hgb 11.0 L Hct 35.0 L MCV MCH MCHC RDW Plt Count Lymph % (Auto) [place] % (Auto) Lymph # [place] # Baso # Seg Neutrophils % Seg Neuts % (Manual) Lymphocytes % (Manual) Seg Neutrophils # Seg Neutrophils # Man Lymphocytes # (Manual) Monocytes # (Manual) PT INR APTT Heparin Anti-Xa Level POC ABG pH POC ABG pCO2 POC ABG pO2 Sodium 155 H Potassium Chloride 114.5 H Carbon Dioxide BUN 23 H Creatinine Glucose 157 H POC Glucose 229 H Calcium Phosphorus Lactate Dehydrogenase Total Creatine Kinase NT-Pro-B Natriuret Pep Albumin Wxdge-1-Wpbmcmcay Dtafj-0-Pmpksbtfq Beta Globulins PEP Interpretation Cholesterol LDL Cholesterol Direct Urine Creatinine 04/12/16 04/12/16 04/12/16 04:54 04:54 05:57 WBC RBC Hgb Hct MCV MCH MCHC RDW Plt Count Lymph % (Auto) [place] % (Auto) Lymph # [place] # Baso # Seg Neutrophils % Seg Neuts % (Manual) Lymphocytes % (Manual) Seg Neutrophils # Seg Neutrophils # Man Lymphocytes # (Manual) Monocytes # (Manual) PT 22.5 H INR 1.98 H APTT Heparin Anti-Xa Level 0.19 L POC ABG pH POC ABG pCO2 POC ABG pO2 Sodium 156 H Potassium Chloride 115.4 H Carbon Dioxide BUN 23 H Creatinine Glucose 143 H POC Glucose 194 H Calcium Phosphorus Lactate Dehydrogenase Total Creatine Kinase NT-Pro-B Natriuret Pep Albumin Kdjhu-3-Hbyvamjrh Ljyfg-5-Kydgjnzst Beta Globulins PEP Interpretation Cholesterol LDL Cholesterol Direct Urine Creatinine 04/12/16 04/12/16 04/12/16 12:34 19:01 23:30 WBC RBC Hgb Hct MCV MCH MCHC RDW Plt Count Lymph % (Auto) [place] % (Auto) Lymph # [place] # Baso # Seg Neutrophils % Seg Neuts % (Manual) Lymphocytes % (Manual) Seg Neutrophils # Seg Neutrophils # Man Lymphocytes # (Manual) Monocytes # (Manual) PT INR APTT Heparin Anti-Xa Level POC ABG pH POC ABG pCO2 POC ABG pO2 Sodium Potassium Chloride Carbon Dioxide BUN Creatinine Glucose POC Glucose 291 H 235 H 154 H Calcium Phosphorus Lactate Dehydrogenase Total Creatine Kinase NT-Pro-B Natriuret Pep Albumin Fzijy-7-Cygulnkov Yvffz-4-Rcrlfrmte Beta Globulins PEP Interpretation Cholesterol LDL Cholesterol Direct Urine Creatinine 04/13/16 04/13/16 04/13/16 05:16 05:16 05:28 WBC RBC Hgb Hct MCV MCH MCHC RDW Plt Count Lymph % (Auto) [place] % (Auto) Lymph # [place] # Baso # Seg Neutrophils % Seg Neuts % (Manual) Lymphocytes % (Manual) Seg Neutrophils # Seg Neutrophils # Man Lymphocytes # (Manual) Monocytes # (Manual) PT 27.0 H INR 2.49 H APTT Heparin Anti-Xa Level 0.20 L POC ABG pH POC ABG pCO2 POC ABG pO2 Sodium 150 H Potassium Chloride 110.5 H Carbon Dioxide BUN 21 H Creatinine Glucose 159 H POC Glucose 177 H Calcium Phosphorus Lactate Dehydrogenase Total Creatine Kinase NT-Pro-B Natriuret Pep Albumin Huxkm-1-Ryqkvbeim Jaxhk-1-Zyrisivsv Beta Globulins PEP Interpretation Cholesterol LDL Cholesterol Direct Urine Creatinine 04/13/16 04/13/16 04/14/16 11:30 17:54 00:44 WBC RBC Hgb Hct MCV MCH MCHC RDW Plt Count Lymph % (Auto) [place] % (Auto) Lymph # [place] # Baso # Seg Neutrophils % Seg Neuts % (Manual) Lymphocytes % (Manual) Seg Neutrophils # Seg Neutrophils # Man Lymphocytes # (Manual) Monocytes # (Manual) PT INR APTT Heparin Anti-Xa Level POC ABG pH POC ABG pCO2 POC ABG pO2 Sodium Potassium Chloride Carbon Dioxide BUN Creatinine Glucose POC Glucose 181 H 251 H 237 H Calcium Phosphorus Lactate Dehydrogenase Total Creatine Kinase NT-Pro-B Natriuret Pep Albumin Yzmiu-4-Cxplvarbr Tubew-0-Uznwozlry Beta Globulins PEP Interpretation Cholesterol LDL Cholesterol Direct Urine Creatinine 04/14/16 04/14/16 04/14/16 05:00 05:42 05:42 WBC RBC Hgb Hct MCV MCH MCHC RDW Plt Count Lymph % (Auto) [place] % (Auto) Lymph # [place] # Baso # Seg Neutrophils % Seg Neuts % (Manual) Lymphocytes % (Manual) Seg Neutrophils # Seg Neutrophils # Man Lymphocytes # (Manual) Monocytes # (Manual) PT 30.3 H INR 2.88 H APTT Heparin Anti-Xa Level 0.27 L POC ABG pH POC ABG pCO2 POC ABG pO2 Sodium Potassium 3.5 L Chloride Carbon Dioxide BUN Creatinine Glucose 160 H POC Glucose Calcium 8.2 L Phosphorus Lactate Dehydrogenase Total Creatine Kinase NT-Pro-B Natriuret Pep Albumin Mhglu-2-Hkkubdvwz Kfbql-1-Wpuscrbts Beta Globulins PEP Interpretation Cholesterol LDL Cholesterol Direct Urine Creatinine 04/14/16 04/14/16 04/14/16 06:02 06:16 09:18 WBC 12.3 H RBC Hgb 11.4 L Hct MCV 82 L MCH 26 L MCHC RDW Plt Count Lymph % (Auto) [place] % (Auto) Lymph # [place] # Baso # Seg Neutrophils % Seg Neuts % (Manual) Lymphocytes % (Manual) Seg Neutrophils # Seg Neutrophils # Man Lymphocytes # (Manual) Monocytes # (Manual) PT INR APTT Heparin Anti-Xa Level POC ABG pH POC ABG pCO2 POC ABG pO2 Sodium Potassium Chloride Carbon Dioxide BUN Creatinine Glucose POC Glucose 156 H 164 H Calcium Phosphorus Lactate Dehydrogenase Total Creatine Kinase NT-Pro-B Natriuret Pep Albumin Bxonp-9-Uomkephox Gibek-9-Toukbrmos Beta Globulins PEP Interpretation Cholesterol LDL Cholesterol Direct Urine Creatinine 04/14/16 04/15/16 04/15/16 13:58 01:07 06:04 WBC RBC Hgb Hct MCV MCH MCHC RDW Plt Count Lymph % (Auto) [place] % (Auto) Lymph # [place] # Baso # Seg Neutrophils % Seg Neuts % (Manual) Lymphocytes % (Manual) Seg Neutrophils # Seg Neutrophils # Man Lymphocytes # (Manual) Monocytes # (Manual) PT 24.9 H INR 2.25 H APTT Heparin Anti-Xa Level POC ABG pH POC ABG pCO2 POC ABG pO2 Sodium Potassium Chloride Carbon Dioxide BUN Creatinine Glucose POC Glucose 109 H 154 H Calcium Phosphorus Lactate Dehydrogenase Total Creatine Kinase NT-Pro-B Natriuret Pep Albumin Drtzf-4-Omasfovze Gbivz-2-Iwgneiens Beta Globulins PEP Interpretation Cholesterol LDL Cholesterol Direct Urine Creatinine 04/15/16 04/15/16 04/16/16 06:08 12:41 00:38 WBC RBC Hgb Hct MCV MCH MCHC RDW Plt Count Lymph % (Auto) [place] % (Auto) Lymph # [place] # Baso # Seg Neutrophils % Seg Neuts % (Manual) Lymphocytes % (Manual) Seg Neutrophils # Seg Neutrophils # Man Lymphocytes # (Manual) Monocytes # (Manual) PT INR APTT Heparin Anti-Xa Level POC ABG pH POC ABG pCO2 POC ABG pO2 Sodium Potassium Chloride Carbon Dioxide BUN Creatinine Glucose POC Glucose 165 H 223 H 216 H Calcium Phosphorus Lactate Dehydrogenase Total Creatine Kinase NT-Pro-B Natriuret Pep Albumin Twerk-4-Ndkjkuejp Ajmuo-7-Lzluukfoy Beta Globulins PEP Interpretation Cholesterol LDL Cholesterol Direct Urine Creatinine 04/16/16 04/16/16 04/16/16 05:45 07:09 14:00 WBC RBC Hgb Hct MCV MCH MCHC RDW Plt Count Lymph % (Auto) [place] % (Auto) Lymph # [place] # Baso # Seg Neutrophils % Seg Neuts % (Manual) Lymphocytes % (Manual) Seg Neutrophils # Seg Neutrophils # Man Lymphocytes # (Manual) Monocytes # (Manual) PT 19.4 H INR 1.64 H APTT Heparin Anti-Xa Level 0.10 L POC ABG pH POC ABG pCO2 POC ABG pO2 Sodium Potassium Chloride Carbon Dioxide BUN Creatinine Glucose POC Glucose 207 H 69 L Calcium Phosphorus Lactate Dehydrogenase Total Creatine Kinase NT-Pro-B Natriuret Pep Albumin Oucaq-5-Jeojhvebw Wtyqh-8-Gnciwdzsb Beta Globulins PEP Interpretation Cholesterol LDL Cholesterol Direct Urine Creatinine 04/16/16 04/16/16 04/16/16 17:40 17:52 19:38 WBC RBC Hgb Hct MCV MCH MCHC RDW Plt Count Lymph % (Auto) [place] % (Auto) Lymph # [place] # Baso # Seg Neutrophils % Seg Neuts % (Manual) Lymphocytes % (Manual) Seg Neutrophils # Seg Neutrophils # Man Lymphocytes # (Manual) Monocytes # (Manual) PT INR APTT Heparin Anti-Xa Level 0.26 L POC ABG pH 7.543 H 7.488 H POC ABG pCO2 26.3 L 30.3 L POC ABG pO2 55 L 203 H Sodium Potassium Chloride Carbon Dioxide BUN Creatinine Glucose POC Glucose Calcium Phosphorus Lactate Dehydrogenase Total Creatine Kinase NT-Pro-B Natriuret Pep Albumin Qpdya-0-Vichdsiel Umnjq-2-Rwdsqifxz Beta Globulins PEP Interpretation Cholesterol LDL Cholesterol Direct Urine Creatinine 04/17/16 04/17/16 04/17/16 00:04 05:10 05:36 WBC RBC Hgb Hct MCV MCH MCHC RDW Plt Count Lymph % (Auto) [place] % (Auto) Lymph # [place] # Baso # Seg Neutrophils % Seg Neuts % (Manual) Lymphocytes % (Manual) Seg Neutrophils # Seg Neutrophils # Man Lymphocytes # (Manual) Monocytes # (Manual) PT INR APTT Heparin Anti-Xa Level POC ABG pH POC ABG pCO2 32.7 L POC ABG pO2 68 L Sodium Potassium Chloride Carbon Dioxide BUN Creatinine Glucose POC Glucose 113 H 161 H Calcium Phosphorus Lactate Dehydrogenase Total Creatine Kinase NT-Pro-B Natriuret Pep Albumin Xfpqk-7-Jkbrznucm Qvtlh-4-Exunjshce Beta Globulins PEP Interpretation Cholesterol LDL Cholesterol Direct Urine Creatinine 04/17/16 04/17/16 04/17/16 05:41 08:37 11:46 WBC RBC Hgb Hct MCV MCH MCHC RDW Plt Count Lymph % (Auto) [place] % (Auto) Lymph # [place] # Baso # Seg Neutrophils % Seg Neuts % (Manual) Lymphocytes % (Manual) Seg Neutrophils # Seg Neutrophils # Man Lymphocytes # (Manual) Monocytes # (Manual) PT 17.4 H INR 1.43 H APTT Heparin Anti-Xa Level POC ABG pH POC ABG pCO2 POC ABG pO2 Sodium Potassium Chloride Carbon Dioxide BUN Creatinine Glucose POC Glucose 154 H 138 H Calcium Phosphorus Lactate Dehydrogenase Total Creatine Kinase NT-Pro-B Natriuret Pep Albumin Apzrd-2-Jbxtupqiz Cbqgv-5-Ratpreaby Beta Globulins PEP Interpretation Cholesterol LDL Cholesterol Direct Urine Creatinine 04/17/16 04/17/16 04/17/16 12:17 12:17 21:20 WBC 16.5 H RBC 3.31 L Hgb 8.8 L Hct 26.9 L MCV 81 L MCH 27 L MCHC RDW 15.5 H Plt Count Lymph % (Auto) [place] % (Auto) Lymph # [place] # Baso # Seg Neutrophils % Seg Neuts % (Manual) Lymphocytes % (Manual) 3.0 L Seg Neutrophils # Seg Neutrophils # Man 10.1 H Lymphocytes # (Manual) 0.5 L Monocytes # (Manual) PT INR APTT Heparin Anti-Xa Level 0.14 L POC ABG pH POC ABG pCO2 POC ABG pO2 Sodium Potassium Chloride Carbon Dioxide 21 L BUN 38 H Creatinine 1.8 H D Glucose 131 H POC Glucose Calcium 7.6 L Phosphorus Lactate Dehydrogenase Total Creatine Kinase NT-Pro-B Natriuret Pep Albumin Izfsm-3-Kmpswnvdd Fhsik-1-Mymhovqah Beta Globulins PEP Interpretation Cholesterol LDL Cholesterol Direct Urine Creatinine 04/17/16 04/17/16 04/18/16 23:38 23:41 00:21 WBC RBC Hgb Hct MCV MCH MCHC RDW Plt Count Lymph % (Auto) [place] % (Auto) Lymph # [place] # Baso # Seg Neutrophils % Seg Neuts % (Manual) Lymphocytes % (Manual) Seg Neutrophils # Seg Neutrophils # Man Lymphocytes # (Manual) Monocytes # (Manual) PT INR APTT Heparin Anti-Xa Level POC ABG pH POC ABG pCO2 POC ABG pO2 Sodium Potassium Chloride Carbon Dioxide BUN Creatinine Glucose POC Glucose < 40 L < 40 L 223 H Calcium Phosphorus Lactate Dehydrogenase Total Creatine Kinase NT-Pro-B Natriuret Pep Albumin Lwlhl-1-Btzwvwiwf Ukttn-5-Pylytxggs Beta Globulins PEP Interpretation Cholesterol LDL Cholesterol Direct Urine Creatinine 04/18/16 04/18/16 04/18/16 05:01 05:20 05:20 WBC 17.6 H RBC 3.44 L Hgb 9.1 L Hct 27.8 L MCV 81 L MCH 26 L MCHC RDW 15.5 H Plt Count Lymph % (Auto) 2.7 L [place] % (Auto) 8.3 H Lymph # 0.5 L [place] # 1.5 H Baso # Seg Neutrophils % 88.4 H Seg Neuts % (Manual) Lymphocytes % (Manual) Seg Neutrophils # 15.6 H Seg Neutrophils # Man Lymphocytes # (Manual) Monocytes # (Manual) PT 17.4 H INR 1.43 H APTT Heparin Anti-Xa Level POC ABG pH 7.528 H POC ABG pCO2 27.9 L POC ABG pO2 Sodium Potassium Chloride Carbon Dioxide BUN Creatinine Glucose POC Glucose Calcium Phosphorus Lactate Dehydrogenase Total Creatine Kinase NT-Pro-B Natriuret Pep Albumin Rfugw-2-Irraynlwy Gqsum-9-Oyzzfzguh Beta Globulins PEP Interpretation Cholesterol LDL Cholesterol Direct Urine Creatinine 04/18/16 04/18/16 04/18/16 05:20 05:31 06:50 WBC RBC Hgb Hct MCV MCH MCHC RDW Plt Count Lymph % (Auto) [place] % (Auto) Lymph # [place] # Baso # Seg Neutrophils % Seg Neuts % (Manual) Lymphocytes % (Manual) Seg Neutrophils # Seg Neutrophils # Man Lymphocytes # (Manual) Monocytes # (Manual) PT INR APTT Heparin Anti-Xa Level POC ABG pH POC ABG pCO2 POC ABG pO2 Sodium Potassium 3.4 L Chloride Carbon Dioxide 21 L BUN 22 H Creatinine Glucose POC Glucose 61 L 124 H Calcium 8.0 L Phosphorus Lactate Dehydrogenase Total Creatine Kinase NT-Pro-B Natriuret Pep Albumin Gsugq-9-Tcrphgiwe Xpxdi-8-Lqbmyhsgh Beta Globulins PEP Interpretation Cholesterol LDL Cholesterol Direct Urine Creatinine 04/18/16 04/18/16 04/19/16 17:42 22:40 00:31 WBC RBC Hgb Hct MCV MCH MCHC RDW Plt Count Lymph % (Auto) [place] % (Auto) Lymph # [place] # Baso # Seg Neutrophils % Seg Neuts % (Manual) Lymphocytes % (Manual) Seg Neutrophils # Seg Neutrophils # Man Lymphocytes # (Manual) Monocytes # (Manual) PT INR APTT Heparin Anti-Xa Level < 0.10 L POC ABG pH POC ABG pCO2 POC ABG pO2 Sodium Potassium Chloride Carbon Dioxide BUN Creatinine Glucose POC Glucose 159 H 134 H Calcium Phosphorus Lactate Dehydrogenase Total Creatine Kinase NT-Pro-B Natriuret Pep Albumin Xbntr-6-Jdpzbuliv Nlzwr-0-Hbkogbvus Beta Globulins PEP Interpretation Cholesterol LDL Cholesterol Direct Urine Creatinine 04/19/16 04/19/16 04/19/16 04:18 04:18 04:25 WBC 19.0 H RBC 3.58 L Hgb 9.3 L Hct 28.8 L MCV 80 L MCH 26 L MCHC RDW 15.5 H Plt Count Lymph % (Auto) 2.8 L [place] % (Auto) 7.4 H Lymph # 0.5 L [place] # 1.4 H Baso # Seg Neutrophils % 89.4 H Seg Neuts % (Manual) Lymphocytes % (Manual) Seg Neutrophils # 17.0 H Seg Neutrophils # Man Lymphocytes # (Manual) Monocytes # (Manual) PT INR APTT Heparin Anti-Xa Level POC ABG pH 7.527 H POC ABG pCO2 27.1 L POC ABG pO2 Sodium Potassium Chloride Carbon Dioxide BUN 22 H Creatinine Glucose 215 H POC Glucose Calcium 8.0 L Phosphorus Lactate Dehydrogenase Total Creatine Kinase NT-Pro-B Natriuret Pep Albumin Ympku-2-Lekafqwab Ejnkp-7-Maiyjywtp Beta Globulins PEP Interpretation Cholesterol LDL Cholesterol Direct Urine Creatinine 04/19/16 04/19/16 04/19/16 05:45 08:10 14:08 WBC RBC Hgb Hct MCV MCH MCHC RDW Plt Count Lymph % (Auto) [place] % (Auto) Lymph # [place] # Baso # Seg Neutrophils % Seg Neuts % (Manual) Lymphocytes % (Manual) Seg Neutrophils # Seg Neutrophils # Man Lymphocytes # (Manual) Monocytes # (Manual) PT 22.1 H INR 1.93 H APTT Heparin Anti-Xa Level 0.17 L POC ABG pH POC ABG pCO2 POC ABG pO2 Sodium Potassium Chloride Carbon Dioxide BUN Creatinine Glucose POC Glucose 196 H 318 H Calcium Phosphorus Lactate Dehydrogenase Total Creatine Kinase NT-Pro-B Natriuret Pep Albumin Wvsvq-8-Vzynvydvq Xtgaw-2-Ivdbsomdd Beta Globulins PEP Interpretation Cholesterol LDL Cholesterol Direct Urine Creatinine 04/19/16 04/20/16 04/20/16 17:27 03:55 03:55 WBC 18.5 H RBC 3.19 L Hgb 8.4 L Hct 25.7 L MCV 80 L MCH 26 L MCHC RDW 15.9 H Plt Count Lymph % (Auto) 4.3 L [place] % (Auto) 10.1 H Lymph # 0.8 L [place] # 1.9 H Baso # Seg Neutrophils % 85.2 H Seg Neuts % (Manual) Lymphocytes % (Manual) Seg Neutrophils # 15.8 H Seg Neutrophils # Man Lymphocytes # (Manual) Monocytes # (Manual) PT 22.0 H INR 1.92 H APTT Heparin Anti-Xa Level 0.14 L POC ABG pH POC ABG pCO2 POC ABG pO2 Sodium Potassium Chloride Carbon Dioxide BUN Creatinine Glucose POC Glucose 230 H Calcium Phosphorus Lactate Dehydrogenase Total Creatine Kinase NT-Pro-B Natriuret Pep Albumin Gbifm-6-Jzljvsyxh Oneou-8-Egfhditde Beta Globulins PEP Interpretation Cholesterol LDL Cholesterol Direct Urine Creatinine 04/20/16 04/20/16 04/20/16 03:55 04:16 05:52 WBC RBC Hgb Hct MCV MCH MCHC RDW Plt Count Lymph % (Auto) [place] % (Auto) Lymph # [place] # Baso # Seg Neutrophils % Seg Neuts % (Manual) Lymphocytes % (Manual) Seg Neutrophils # Seg Neutrophils # Man Lymphocytes # (Manual) Monocytes # (Manual) PT INR APTT Heparin Anti-Xa Level POC ABG pH 7.474 H POC ABG pCO2 26.5 L POC ABG pO2 Sodium Potassium Chloride Carbon Dioxide 18 L BUN 38 H Creatinine 2.7 H D Glucose 159 H POC Glucose 214 H Calcium 8.0 L Phosphorus Lactate Dehydrogenase Total Creatine Kinase NT-Pro-B Natriuret Pep Albumin Ymrto-9-Fwapwozvb Wnihp-9-Anotlgjgu Beta Globulins PEP Interpretation Cholesterol LDL Cholesterol Direct Urine Creatinine 04/20/16 04/20/16 04/20/16 10:32 11:27 11:50 WBC RBC Hgb Hct MCV MCH MCHC RDW Plt Count Lymph % (Auto) [place] % (Auto) Lymph # [place] # Baso # Seg Neutrophils % Seg Neuts % (Manual) Lymphocytes % (Manual) Seg Neutrophils # Seg Neutrophils # Man Lymphocytes # (Manual) Monocytes # (Manual) PT INR APTT Heparin Anti-Xa Level POC ABG pH POC ABG pCO2 POC ABG pO2 Sodium Potassium Chloride Carbon Dioxide 20 L BUN 45 H Creatinine 3.0 H Glucose 215 H POC Glucose 248 H Calcium 8.0 L Phosphorus Lactate Dehydrogenase Total Creatine Kinase NT-Pro-B Natriuret Pep Albumin Rjhog-7-Thfezslyq Rwjwl-7-Roxpypvoq Beta Globulins PEP Interpretation Cholesterol LDL Cholesterol Direct Urine Creatinine 85.5 H 04/20/16 04/21/16 04/21/16 16:59 00:13 04:29 WBC RBC Hgb Hct MCV MCH MCHC RDW Plt Count Lymph % (Auto) [place] % (Auto) Lymph # [place] # Baso # Seg Neutrophils % Seg Neuts % (Manual) Lymphocytes % (Manual) Seg Neutrophils # Seg Neutrophils # Man Lymphocytes # (Manual) Monocytes # (Manual) PT 18.1 H INR 1.50 H APTT Heparin Anti-Xa Level 0.10 L POC ABG pH POC ABG pCO2 POC ABG pO2 Sodium Potassium Chloride Carbon Dioxide BUN Creatinine Glucose POC Glucose 312 H 287 H Calcium Phosphorus Lactate Dehydrogenase Total Creatine Kinase NT-Pro-B Natriuret Pep Albumin Erjqo-6-Vfdvbloqp Igjog-1-Miytpnold Beta Globulins PEP Interpretation Cholesterol LDL Cholesterol Direct Urine Creatinine 04/21/16 04/21/16 04/21/16 04:29 04:29 04:55 WBC 15.4 H RBC 3.24 L Hgb 8.4 L Hct 25.6 L MCV 79 L MCH 26 L MCHC RDW 16.1 H Plt Count Lymph % (Auto) 6.8 L [place] % (Auto) 12.9 H Lymph # 1.0 L [place] # 2.0 H Baso # Seg Neutrophils % 79.8 H Seg Neuts % (Manual) Lymphocytes % (Manual) Seg Neutrophils # 12.3 H Seg Neutrophils # Man Lymphocytes # (Manual) Monocytes # (Manual) PT INR APTT Heparin Anti-Xa Level POC ABG pH 7.512 H POC ABG pCO2 25.4 L POC ABG pO2 Sodium 135 L Potassium Chloride Carbon Dioxide 18 L BUN 57 H Creatinine 3.9 H Glucose 202 H POC Glucose Calcium 8.0 L Phosphorus Lactate Dehydrogenase Total Creatine Kinase NT-Pro-B Natriuret Pep Albumin Vxtgq-7-Clxcekuza Pgrco-0-Ggeaeczzc Beta Globulins PEP Interpretation Cholesterol LDL Cholesterol Direct Urine Creatinine 04/21/16 05:20 WBC RBC Hgb Hct MCV MCH MCHC RDW Plt Count Lymph % (Auto) [place] % (Auto) Lymph # [place] # Baso # Seg Neutrophils % Seg Neuts % (Manual) Lymphocytes % (Manual) Seg Neutrophils # Seg Neutrophils # Man Lymphocytes # (Manual) Monocytes # (Manual) PT INR APTT Heparin Anti-Xa Level POC ABG pH POC ABG pCO2 POC ABG pO2 Sodium Potassium Chloride Carbon Dioxide BUN Creatinine Glucose POC Glucose 203 H Calcium Phosphorus Lactate Dehydrogenase Total Creatine Kinase NT-Pro-B Natriuret Pep Albumin Tzpcb-8-Zamdufski Qvpev-3-Xzyicgwxx Beta Globulins PEP Interpretation Cholesterol LDL Cholesterol Direct Urine Creatinine Chest x-ray: image reviewed
[2016-04-21] MEDS: NACL 0.9% 1000 ML 1,000 ML IV SCH ×2 (12:22→21:06)
[2016-04-21] MEDS: MAXIPIME/NS 1 GM/100 ML 100 ML IV SCH (12:22)
[2016-04-21] MEDS: CEPHULAC PO SCH ×3 (12:23→20:48)
[2016-04-21] MEDS: LEVEMIR SUB-Q SCH (15:39)
--- NOTE | 2016-04-21 19:34 | Progress Note ---
Assessment and Plan - Patient Problems (1) Altered mental status Current Visit: Yes Status: Acute Qualifiers: Altered mental status type: unspecified Qualified Code(s): R41.82 - Altered mental status, unspecified (2) CHF (congestive heart failure), NYHA class III Current Visit: Yes Status: Acute (3) CVA (cerebral vascular accident) Current Visit: Yes Status: Acute (4) DVT prophylaxis Current Visit: Yes Status: Acute Subjective Date of service: 04/21/16 Principal diagnosis: CVA Objective - Constitutional Vitals: Vital Signs - 12hr 04/21/16 04/21/16 04/21/16 07:56 08:00 08:05 Temperature 100.2 F H Pulse Rate 83 82 Pulse Rate [ 83 81 Bilateral Throughout] Pulse Rate [ 78 From Monitor] Respiratory 21 Rate Respiratory 15 14 Rate [Bilateral Throughout] Blood Pressure 106/65 118/69 O2 Sat by Pulse 100 100 Oximetry 04/21/16 04/21/16 04/21/16 08:31 08:32 08:39 Temperature Pulse Rate 97 H 99 H 80 Pulse Rate [ Bilateral Throughout] Pulse Rate [ From Monitor] Respiratory 21 13 Rate Respiratory Rate [Bilateral Throughout] Blood Pressure 147/88 127/77 147/88 O2 Sat by Pulse 98 100 Oximetry 04/21/16 04/21/16 04/21/16 09:00 09:30 10:00 Temperature Pulse Rate 72 72 73 Pulse Rate [ Bilateral Throughout] Pulse Rate [ From Monitor] Respiratory 23 20 23 Rate Respiratory Rate [Bilateral Throughout] Blood Pressure 104/64 99/62 101/63 O2 Sat by Pulse 98 98 100 Oximetry 04/21/16 04/21/16 04/21/16 10:15 10:18 10:31 Temperature Pulse Rate 74 74 83 Pulse Rate [ Bilateral Throughout] Pulse Rate [ From Monitor] Respiratory 43 H Rate Respiratory Rate [Bilateral Throughout] Blood Pressure 101/63 106/62 106/62 O2 Sat by Pulse 100 Oximetry 04/21/16 04/21/16 04/21/16 10:59 11:00 11:05 Temperature Pulse Rate 72 73 72 Pulse Rate [ Bilateral Throughout] Pulse Rate [ From Monitor] Respiratory 18 21 16 Rate Respiratory Rate [Bilateral Throughout] Blood Pressure 115/70 112/67 112/67 O2 Sat by Pulse 99 99 100 Oximetry 04/21/16 04/21/16 04/21/16 11:30 12:00 12:30 Temperature 99.9 F H Pulse Rate 71 70 70 Pulse Rate [ Bilateral Throughout] Pulse Rate [ 70 From Monitor] Respiratory 21 20 19 Rate Respiratory Rate [Bilateral Throughout] Blood Pressure 98/60 92/58 106/63 O2 Sat by Pulse 99 98 99 Oximetry 04/21/16 04/21/16 04/21/16 12:59 13:00 13:01 Temperature Pulse Rate 70 71 71 Pulse Rate [ Bilateral Throughout] Pulse Rate [ From Monitor] Respiratory 22 21 15 Rate Respiratory Rate [Bilateral Throughout] Blood Pressure 99/60 97/59 97/59 O2 Sat by Pulse 99 100 99 Oximetry 04/21/16 04/21/16 04/21/16 13:30 14:00 14:12 Temperature Pulse Rate 73 77 Pulse Rate [ 86 Bilateral Throughout] Pulse Rate [ From Monitor] Respiratory 16 15 Rate Respiratory 16 Rate [Bilateral Throughout] Blood Pressure 117/69 120/73 O2 Sat by Pulse 100 100 Oximetry 04/21/16 04/21/16 04/21/16 14:25 14:31 15:00 Temperature Pulse Rate 73 72 Pulse Rate [ 82 Bilateral Throughout] Pulse Rate [ From Monitor] Respiratory 20 20 Rate Respiratory 21 Rate [Bilateral Throughout] Blood Pressure 102/60 103/60 O2 Sat by Pulse 99 99 Oximetry 04/21/16 04/21/16 04/21/16 15:30 15:44 16:00 Temperature 99.9 F H Pulse Rate 76 80 Pulse Rate [ Bilateral Throughout] Pulse Rate [ 75 From Monitor] Respiratory 22 20 Rate Respiratory Rate [Bilateral Throughout] Blood Pressure 114/67 114/67 O2 Sat by Pulse 97 98 Oximetry 04/21/16 04/21/16 04/21/16 16:01 16:13 16:19 Temperature Pulse Rate 84 77 76 Pulse Rate [ Bilateral Throughout] Pulse Rate [ From Monitor] Respiratory 32 H 20 Rate Respiratory Rate [Bilateral Throughout] Blood Pressure 127/72 88/53 88/53 O2 Sat by Pulse 98 94 98 Oximetry 04/21/16 04/21/16 04/21/16 16:30 17:00 17:30 Temperature Pulse Rate 72 69 69 Pulse Rate [ Bilateral Throughout] Pulse Rate [ From Monitor] Respiratory 21 21 21 Rate Respiratory Rate [Bilateral Throughout] Blood Pressure 91/52 86/52 92/56 O2 Sat by Pulse 97 98 98 Oximetry 04/21/16 04/21/1616 18:00 18:30 18:49 Temperature Pulse Rate 68 69 68 Pulse Rate [ Bilateral Throughout] Pulse Rate [ From Monitor] Respiratory 23 20 16 Rate Respiratory Rate [Bilateral Throughout] Blood Pressure 91/51 93/54 93/54 O2 Sat by Pulse 99 99 100 Oximetry 04/21/16 19:00 Temperature Pulse Rate 70 Pulse Rate [ Bilateral Throughout] Pulse Rate [ From Monitor] Respiratory 19 Rate Respiratory Rate [Bilateral Throughout] Blood Pressure 102/61 O2 Sat by Pulse 100 Oximetry General appearance: Present: no acute distress, well-nourished - EENT Eyes: PERRL, EOM intact ENT: hearing intact, clear oral mucosa Ears: bilateral: normal - Neck Neck: supple, normal ROM - Respiratory Respiratory effort: normal Respiratory: bilateral: CTA - Breasts Breasts: normal - Cardiovascular Rhythm: regular Heart Sounds: Present: S1 & S2. Absent: gallop, rub Extremities: pulses intact, No edema, normal color, Full ROM - Gastrointestinal General gastrointestinal: Present: soft, non-tender, non-distended, normal bowel sounds - Genitourinary Male genitourinary: normal - Integumentary Integumentary: clear, warm, dry - Musculoskeletal Musculoskeletal: 1, strength equal bilaterally - Neurologic Neurologic: moves all extremities - Psychiatric Psychiatric: memory intact, appropriate mood/affect, intact judgment & insight - Labs CBC & Chem 7: 04/21/16 04:29 04/21/16 04:29 Labs: Abnormal lab results 04/20/16 04/21/16 04/21/16 Range/Units 16:59 00:13 04:29 WBC (4.5-11.0) K/mm3 RBC (3.65-5.03) M/mm3 Hgb (11.8-15.2) gm/dl Hct (35.5-45.6) % MCV (84-94) fl MCH (28-32) pg RDW (13.2-15.2) % Lymph % (Auto) (13.4-35.0) % [place] % (Auto) (0.0-7.3) % Lymph # (1.2-5.4) K/mm3 Early # (0.0-0.8) K/mm3 Seg Neutrophils % (40.0-70.0) % Seg Neutrophils # (1.8-7.7) K/mm3 PT 18.1 H (12.2-14.9) Sec. INR 1.50 H (0.87-1.13) Heparin Anti-Xa Level 0.10 L (0.3-0.7) U.I./ml POC ABG pH (7.35-7.45) POC ABG pCO2 (35-45) Sodium (137-145) mmol/L Carbon Dioxide (22-30) mmol/L BUN (9-20) mg/dL Creatinine (0.8-1.5) mg/dL Glucose (75-100) mg/dL POC Glucose 312 H 287 H (70-105) Calcium (8.4-10.2) mg/dL 04/21/16 04/21/16 04/21/16 Range/Units 04:29 04:29 04:55 WBC 15.4 H (4.5-11.0) K/mm3 RBC 3.24 L (3.65-5.03) M/mm3 Hgb 8.4 L (11.8-15.2) gm/dl Hct 25.6 L (35.5-45.6) % MCV 79 L (84-94) fl MCH 26 L (28-32) pg RDW 16.1 H (13.2-15.2) % Lymph % (Auto) 6.8 L (13.4-35.0) % [place] % (Auto) 12.9 H (0.0-7.3) % Lymph # 1.0 L (1.2-5.4) K/mm3 Early # 2.0 H (0.0-0.8) K/mm3 Seg Neutrophils % 79.8 H (40.0-70.0) % Seg Neutrophils # 12.3 H (1.8-7.7) K/mm3 PT (12.2-14.9) Sec. INR (0.87-1.13) Heparin Anti-Xa Level (0.3-0.7) U.I./ml POC ABG pH 7.512 H (7.35-7.45) POC ABG pCO2 25.4 L (35-45) Sodium 135 L (137-145) mmol/L Carbon Dioxide 18 L (22-30) mmol/L BUN 57 H (9-20) mg/dL Creatinine 3.9 H (0.8-1.5) mg/dL Glucose 202 H (75-100) mg/dL POC Glucose (70-105) Calcium 8.0 L (8.4-10.2) mg/dL 04/21/16 04/21/16 Range/Units 05:20 12:16 WBC (4.5-11.0) K/mm3 RBC (3.65-5.03) M/mm3 Hgb (11.8-15.2) gm/dl Hct (35.5-45.6) % MCV (84-94) fl MCH (28-32) pg RDW (13.2-15.2) % Lymph % (Auto) (13.4-35.0) % [place] % (Auto) (0.0-7.3) % Lymph # (1.2-5.4) K/mm3 Early # (0.0-0.8) K/mm3 Seg Neutrophils % (40.0-70.0) % Seg Neutrophils # (1.8-7.7) K/mm3 PT (12.2-14.9) Sec. INR (0.87-1.13) Heparin Anti-Xa Level 0.16 L (0.3-0.7) U.I./ml POC ABG pH (7.35-7.45) POC ABG pCO2 (35-45) Sodium (137-145) mmol/L Carbon Dioxide (22-30) mmol/L BUN (9-20) mg/dL Creatinine (0.8-1.5) mg/dL Glucose (75-100) mg/dL POC Glucose 203 H (70-105) Calcium (8.4-10.2) mg/dL
[2016-04-21] MEDS: HEPARIN/ 0.45% NACL-25,000 UNIT/500 ML 500 ML IV SCH (20:25)
[2016-04-21] MEDS: REGLAN IV PRN (21:07)
[2016-04-22] MEDS: NOVOLOG SUB-Q SCH ×4 (00:03→18:47)
[2016-04-22] MEDS: CEPHULAC PO SCH ×3 (00:04→08:20)
[2016-04-22] MEDS: DUONEB 0.5 MG-3 MG/3 ML SOLN IH SCH ×4 (02:06→20:16)
[2016-04-22 05:28] LABS: ISTAT Base Excess -4; ISTAT HCO3 19.8; ISTAT PCO2 27.9 (35-45); ISTAT PO2 103 (80-105); ISTAT SO2 98; ISTAT TCO2 21
[2016-04-22 05:41] LABS: INR 1.44 (0.87-1.13)
[2016-04-22] MEDS: D50W (25GM) IV PRN (05:48)
[2016-04-22] MEDS: NORMODYNE PO SCH ×3 (08:17→20:15)
[2016-04-22] MEDS: NORVASC PO SCH (09:18)
[2016-04-22] MEDS: KEPPRA PO SCH ×2 (09:18→22:08)
[2016-04-22] MEDS: PEPCID PO SCH (09:19)
[2016-04-22] MEDS: MAXIPIME/NS 1 GM/100 ML 100 ML IV SCH (09:19)
[2016-04-22] MEDS: CORDARONE PO SCH (09:19)
--- NOTE | 2016-04-22 09:23 | XRay Report ---
PORTABLE CHEST: INDICATION: Follow-up respiratory failure. COMPARISON: Yesterday. FINDINGS: Portable, frontal chest radiographs, 2 images, 2:17 AM, 04/22/2016 demonstrate mild increased perihilar markings and bibasilar crowded densities/infiltrates. Stable cardiomediastinal silhouette, aortic knob calcifications, sternotomy wires, prosthetic heart valve, endotracheal tube tip approximately 4 cm above the alton, EKG leads and osseous structures. Right upper extremity PICC tip again noted in the right axilla that may be remanipulated, if warranted. CONCLUSION: Mild increased crowding of lung markings/bibasilar infiltrates, as described. Otherwise, stable, including right upper extremity PICC tip in the right axilla. Please correlate. Thank you for the opportunity to participate in this patient's care.
[2016-04-22] MEDS: LEVEMIR SUB-Q SCH (09:24)
[2016-04-22] MEDS: BABY ASPIRIN PO SCH (09:24)
[2016-04-22] MEDS: ZESTRIL PO SCH ×2 (09:25→22:08)
--- NOTE | 2016-04-22 12:45 | Ultrasound Report ---
ULTRASOUND RENAL BILATERAL: INDICATION: Azotemia. COMPARISON: 05/02/2015 CT. FINDINGS: Renal sonography suggests top normal cortical echogenicity. Grossly preserved contours. No hydronephrosis. Right kidney measures 10.1 x 6.1 x 4.5 cm with cortical thickness of 1.2 cm. Left kidney estimated at 10.6 x 5 x 5.3 cm with cortical thickness a 1.2 cm. At least 2 of multiple known left renal cysts again noted, measuring approximately 1.3 cm at the upper pole and approximately 2.7 x 1.7 cm at the lower pole. A new Palmer catheter decompresses the urinary bladder, limiting assessment. CONCLUSION: No acute renal sonographic abnormality with few other findings, including known left renal cysts and a new Palmer catheter since May 2015, as described. Thank you for the opportunity to participate in this patient's care.
--- NOTE | 2016-04-22 15:07 | Progress Note ---
Assessment and Plan Acute respiratory failure. Currently on ventilator support, pending tracheostomy. Stroke.See MRI. AMS. No change at this point HTN Elevated INR. Discussed with Dr. Cervantes. The patient will get vitamin K today in order to proceed with tracheotomy when improved Recommendations Vitamin K therapy. Decrease tidal volume to 500 mL tracheotomy Reassess for SVT, weaning status after tracheotomy completed Discussed in detail with RT, nursing staff. No family available. CC time 33 min of [id number]-sb-pvin interaction with the patient and coordination of care Subjective Date of service: 04/22/16 Principal diagnosis: CVA, acute respiratory failure Interval history: Intubated and nonresponsive at the present time. Objective Vital Signs - 12hr 04/22/16 04/22/16 04/22/16 03:30 04:00 04:16 Temperature Pulse Rate 78 79 79 Pulse Rate [ Apical] Pulse Rate [ Bilateral Throughout] Pulse Rate [ From Monitor] Respiratory 21 19 22 Rate Respiratory Rate [Bilateral Throughout] Respiratory Rate [ Generalized] Blood Pressure 113/60 115/65 115/65 O2 Sat by Pulse 100 100 100 Oximetry 04/22/16 04/22/16 04/22/16 04:21 04:27 04:30 Temperature 99 F Pulse Rate 81 Pulse Rate [ 79 Apical] Pulse Rate [ Bilateral Throughout] Pulse Rate [ From Monitor] Respiratory 18 24 Rate Respiratory Rate [Bilateral Throughout] Respiratory Rate [ Generalized] Blood Pressure 123/68 O2 Sat by Pulse 100 100 Oximetry 04/22/16 04/22/16 04/22/16 04:49 05:00 05:30 Temperature Pulse Rate 80 84 83 Pulse Rate [ Apical] Pulse Rate [ Bilateral Throughout] Pulse Rate [ From Monitor] Respiratory 22 22 Rate Respiratory Rate [Bilateral Throughout] Respiratory Rate [ Generalized] Blood Pressure 123/68 132/69 125/68 O2 Sat by Pulse 100 100 100 Oximetry 04/22/16 04/22/16 04/22/16 05:33 06:00 06:30 Temperature Pulse Rate 78 78 Pulse Rate [ Apical] Pulse Rate [ Bilateral Throughout] Pulse Rate [ From Monitor] Respiratory 15 23 Rate Respiratory Rate [Bilateral Throughout] Respiratory Rate [ Generalized] Blood Pressure 125/68 121/61 121/61 O2 Sat by Pulse 100 100 100 Oximetry 04/22/16 04/22/16 04/22/16 06:48 07:00 07:30 Temperature Pulse Rate 81 87 80 Pulse Rate [ Apical] Pulse Rate [ Bilateral Throughout] Pulse Rate [ From Monitor] Respiratory 21 19 21 Rate Respiratory Rate [Bilateral Throughout] Respiratory Rate [ Generalized] Blood Pressure 129/69 129/69 131/71 O2 Sat by Pulse 100 100 100 Oximetry 04/22/16 04/22/16 04/22/16 07:34 08:00 08:17 Temperature 99.0 F Pulse Rate 66 77 Pulse Rate [ 64 Apical] Pulse Rate [ 86 Bilateral Throughout] Pulse Rate [ 66 From Monitor] Respiratory 36 H Rate Respiratory 20 Rate [Bilateral Throughout] Respiratory Rate [ Generalized] Blood Pressure 112/66 144/83 O2 Sat by Pulse 100 Oximetry 04/22/16 04/22/16 04/22/16 08:30 09:00 09:18 Temperature Pulse Rate 74 69 68 Pulse Rate [ Apical] Pulse Rate [ Bilateral Throughout] Pulse Rate [ From Monitor] Respiratory 22 21 Rate Respiratory Rate [Bilateral Throughout] Respiratory Rate [ Generalized] Blood Pressure 117/67 116/66 116/66 O2 Sat by Pulse 99 100 Oximetry 04/22/16 04/22/16 04/22/16 09:25 09:30 09:42 Temperature Pulse Rate 64 66 66 Pulse Rate [ Apical] Pulse Rate [ Bilateral Throughout] Pulse Rate [ From Monitor] Respiratory 17 17 Rate Respiratory Rate [Bilateral Throughout] Respiratory Rate [ Generalized] Blood Pressure 116/66 112/66 112/66 O2 Sat by Pulse 100 100 Oximetry 04/22/16 04/22/16 04/22/16 10:00 10:30 10:49 Temperature Pulse Rate 68 68 64 Pulse Rate [ Apical] Pulse Rate [ Bilateral Throughout] Pulse Rate [ From Monitor] Respiratory 18 14 Rate Respiratory Rate [Bilateral Throughout] Respiratory 19 Rate [ Generalized] Blood Pressure 103/61 103/67 103/67 O2 Sat by Pulse 100 100 100 Oximetry 04/22/16 04/22/16 04/22/16 11:00 11:30 11:41 Temperature 98.6 F Pulse Rate 75 75 Pulse Rate [ Apical] Pulse Rate [ Bilateral Throughout] Pulse Rate [ From Monitor] Respiratory 17 23 Rate Respiratory Rate [Bilateral Throughout] Respiratory Rate [ Generalized] Blood Pressure 109/73 124/70 O2 Sat by Pulse 100 100 Oximetry 04/22/16 04/22/16 04/22/16 12:00 12:30 13:00 Temperature Pulse Rate 75 69 69 Pulse Rate [ 67 Apical] Pulse Rate [ Bilateral Throughout] Pulse Rate [ 67 From Monitor] Respiratory 22 16 17 Rate Respiratory Rate [Bilateral Throughout] Respiratory Rate [ Generalized] Blood Pressure 129/75 125/69 111/63 O2 Sat by Pulse 100 100 100 Oximetry 04/22/16 04/22/16 04/22/16 13:30 13:48 13:49 Temperature Pulse Rate 66 69 68 Pulse Rate [ Apical] Pulse Rate [ Bilateral Throughout] Pulse Rate [ From Monitor] Respiratory 18 18 Rate Respiratory Rate [Bilateral Throughout] Respiratory Rate [ Generalized] Blood Pressure 118/65 118/65 118/65 O2 Sat by Pulse 100 100 Oximetry 04/22/16 04/22/16 14:00 14:32 Temperature Pulse Rate 70 81 Pulse Rate [ Apical] Pulse Rate [ Bilateral Throughout] Pulse Rate [ From Monitor] Respiratory 19 Rate Respiratory Rate [Bilateral Throughout] Respiratory Rate [ Generalized] Blood Pressure 120/66 129/78 O2 Sat by Pulse 100 100 Oximetry Constitutional: no acute distress, comatose Eyes: non-icteric ENT: other (orally intubated and sedated) Neck: supple Effort: normal Ascultation: Bilateral: clear, rhonchi (occasional) Percussion: Bilateral: not dull Cardiovascular: regular rate and rhythm, irregular rhythm Gastrointestinal: normoactive bowel sounds, soft, non-tender Extremities: no cyanosis, no edema Neurologic: other (GCS 3) CBC and BMP: 04/21/16 04:29 04/21/16 04:29 ABG, PT/INR, D-dimer: ABG POC ABG pH 7.460 (7.35-7.45) H 04/22/16 05:01 POC ABG pCO2 27.9 (35-45) L 04/22/16 05:01 POC ABG pO2 103 (80-105) 04/22/16 05:01 POC ABG HCO3 19.8 04/22/16 05:01 POC ABG Total CO2 21 04/22/16 05:01 POC ABG O2 Sat 98 04/22/16 05:01 PT/INR, D-dimer PT 17.5 Sec. (12.2-14.9) H 04/22/16 05:20 INR 1.44 (0.87-1.13) H 04/22/16 05:20 Abnormal lab findings: Abnormal Labs 03/24/16 03/24/16 03/24/16 17:58 20:25 23:23 WBC RBC Hgb Hct MCV MCH MCHC RDW Plt Count Lymph % (Auto) [place] % (Auto) Lymph # [place] # Baso # Seg Neutrophils % Seg Neuts % (Manual) Lymphocytes % (Manual) Seg Neutrophils # Seg Neutrophils # Man Lymphocytes # (Manual) Monocytes # (Manual) PT INR APTT Heparin Anti-Xa Level POC ABG pH POC ABG pCO2 POC ABG pO2 Sodium 169 H* Potassium 3.5 L Chloride 130.3 H Carbon Dioxide BUN 28 H Creatinine 1.8 H Glucose POC Glucose 112 H Calcium Phosphorus Lactate Dehydrogenase Total Creatine Kinase NT-Pro-B Natriuret Pep Albumin Cqhca-4-Umfmcjpdl Aowsc-9-Zrhabjunz Beta Globulins PEP Interpretation Cholesterol 221 H LDL Cholesterol Direct 146 H Urine Creatinine 03/25/16 03/25/16 03/25/16 05:56 05:56 05:56 WBC 21.3 H RBC 6.32 H Hgb 16.7 H Hct 52.7 H MCV 83 L MCH 27 L MCHC RDW Plt Count Lymph % (Auto) [place] % (Auto) Lymph # [place] # Baso # Seg Neutrophils % Seg Neuts % (Manual) 91.0 H Lymphocytes % (Manual) 4.0 L Seg Neutrophils # Seg Neutrophils # Man 19.4 H Lymphocytes # (Manual) 0.9 L Monocytes # (Manual) 0.9 H PT INR APTT Heparin Anti-Xa Level POC ABG pH POC ABG pCO2 POC ABG pO2 Sodium 172 H* Potassium 3.5 L Chloride 130.4 H Carbon Dioxide BUN 29 H Creatinine 1.8 H Glucose 187 H POC Glucose Calcium Phosphorus Lactate Dehydrogenase 460 H Total Creatine Kinase NT-Pro-B Natriuret Pep Albumin Ypkmx-8-Vtkaychts Tumzl-6-Heovgzhrn Beta Globulins PEP Interpretation Cholesterol LDL Cholesterol Direct Urine Creatinine 03/25/16 03/25/16 03/25/16 07:55 12:19 13:00 WBC RBC Hgb Hct MCV MCH MCHC RDW Plt Count Lymph % (Auto) [place] % (Auto) Lymph # [place] # Baso # Seg Neutrophils % Seg Neuts % (Manual) Lymphocytes % (Manual) Seg Neutrophils # Seg Neutrophils # Man Lymphocytes # (Manual) Monocytes # (Manual) PT INR APTT Heparin Anti-Xa Level POC ABG pH POC ABG pCO2 POC ABG pO2 Sodium Potassium Chloride Carbon Dioxide BUN Creatinine Glucose POC Glucose 231 H 314 H Calcium Phosphorus Lactate Dehydrogenase Total Creatine Kinase NT-Pro-B Natriuret Pep Albumin 3.4 L Zsodj-1-Wyzjjhcxe 0.4 H Mcoiz-4-Abzohfuwe 1.1 H Beta Globulins 0.6 H PEP Interpretation see below H Cholesterol LDL Cholesterol Direct Urine Creatinine 03/25/16 03/25/16 03/26/16 16:41 22:45 08:32 WBC RBC Hgb Hct MCV MCH MCHC RDW Plt Count Lymph % (Auto) [place] % (Auto) Lymph # [place] # Baso # Seg Neutrophils % Seg Neuts % (Manual) Lymphocytes % (Manual) Seg Neutrophils # Seg Neutrophils # Man Lymphocytes # (Manual) Monocytes # (Manual) PT INR APTT Heparin Anti-Xa Level POC ABG pH POC ABG pCO2 POC ABG pO2 Sodium Potassium Chloride Carbon Dioxide BUN Creatinine Glucose POC Glucose 444 H 326 H 360 H Calcium Phosphorus Lactate Dehydrogenase Total Creatine Kinase NT-Pro-B Natriuret Pep Albumin Sgojr-9-Fklniiuyy Jdbtp-0-Uodyzhbmj Beta Globulins PEP Interpretation Cholesterol LDL Cholesterol Direct Urine Creatinine 03/26/16 03/26/16 03/26/16 12:38 15:33 15:47 WBC RBC Hgb Hct MCV MCH MCHC RDW Plt Count Lymph % (Auto) [place] % (Auto) Lymph # [place] # Baso # Seg Neutrophils % Seg Neuts % (Manual) Lymphocytes % (Manual) Seg Neutrophils # Seg Neutrophils # Man Lymphocytes # (Manual) Monocytes # (Manual) PT INR APTT Heparin Anti-Xa Level POC ABG pH 7.511 H POC ABG pCO2 26.5 L POC ABG pO2 70 L Sodium Potassium Chloride Carbon Dioxide BUN Creatinine Glucose POC Glucose 280 H 174 H Calcium Phosphorus Lactate Dehydrogenase Total Creatine Kinase NT-Pro-B Natriuret Pep Albumin Rscgt-6-Qqakiqvkj Ncpsw-4-Zyhvrwaon Beta Globulins PEP Interpretation Cholesterol LDL Cholesterol Direct Urine Creatinine 03/26/16 03/26/16 03/26/16 16:47 16:47 18:51 WBC 14.0 H RBC 5.17 H Hgb Hct MCV MCH 26 L MCHC 31 L RDW Plt Count 139 L Lymph % (Auto) [place] % (Auto) Lymph # [place] # Baso # Seg Neutrophils % Seg Neuts % (Manual) Lymphocytes % (Manual) Seg Neutrophils # Seg Neutrophils # Man Lymphocytes # (Manual) Monocytes # (Manual) PT INR APTT Heparin Anti-Xa Level POC ABG pH POC ABG pCO2 33.9 L POC ABG pO2 150 H Sodium 164 H* Potassium 3.4 L Chloride 128.5 H Carbon Dioxide BUN 30 H Creatinine 2.2 H Glucose 121 H POC Glucose Calcium 8.1 L Phosphorus Lactate Dehydrogenase Total Creatine Kinase NT-Pro-B Natriuret Pep Albumin Voqmj-6-Mteegkstn Fcrgu-9-Znzdjenge Beta Globulins PEP Interpretation Cholesterol LDL Cholesterol Direct Urine Creatinine 03/27/16 03/27/16 03/27/16 02:19 05:47 06:02 WBC RBC Hgb Hct MCV MCH MCHC RDW Plt Count Lymph % (Auto) [place] % (Auto) Lymph # [place] # Baso # Seg Neutrophils % Seg Neuts % (Manual) Lymphocytes % (Manual) Seg Neutrophils # Seg Neutrophils # Man Lymphocytes # (Manual) Monocytes # (Manual) PT INR APTT Heparin Anti-Xa Level POC ABG pH POC ABG pCO2 27.3 L 30.3 L POC ABG pO2 50 L 112 H Sodium 158 H Potassium Chloride 126.7 H Carbon Dioxide 20 L BUN 25 H Creatinine 1.7 H Glucose POC Glucose Calcium 7.0 L Phosphorus Lactate Dehydrogenase Total Creatine Kinase NT-Pro-B Natriuret Pep Albumin Uhequ-4-Wdddjtczx Lxcxk-9-Hwvqyfjcy Beta Globulins PEP Interpretation Cholesterol LDL Cholesterol Direct Urine Creatinine 03/27/16 03/27/16 03/27/16 07:51 09:20 11:45 WBC 14.2 H RBC Hgb Hct MCV 83 L MCH 27 L MCHC RDW Plt Count 113 L Lymph % (Auto) [place] % (Auto) Lymph # [place] # Baso # Seg Neutrophils % Seg Neuts % (Manual) Lymphocytes % (Manual) Seg Neutrophils # Seg Neutrophils # Man Lymphocytes # (Manual) Monocytes # (Manual) PT INR APTT Heparin Anti-Xa Level POC ABG pH POC ABG pCO2 POC ABG pO2 Sodium Potassium Chloride Carbon Dioxide BUN Creatinine Glucose POC Glucose 124 H 241 H Calcium Phosphorus Lactate Dehydrogenase Total Creatine Kinase NT-Pro-B Natriuret Pep Albumin Mvbtd-2-Gwasgftnd Zlqht-6-Ohpxifgem Beta Globulins PEP Interpretation Cholesterol LDL Cholesterol Direct Urine Creatinine 03/27/16 03/27/16 03/28/16 16:39 22:03 03:29 WBC RBC Hgb Hct MCV MCH MCHC RDW Plt Count Lymph % (Auto) [place] % (Auto) Lymph # [place] # Baso # Seg Neutrophils % Seg Neuts % (Manual) Lymphocytes % (Manual) Seg Neutrophils # Seg Neutrophils # Man Lymphocytes # (Manual) Monocytes # (Manual) PT INR APTT Heparin Anti-Xa Level POC ABG pH POC ABG pCO2 POC ABG pO2 Sodium Potassium Chloride Carbon Dioxide BUN Creatinine Glucose POC Glucose 266 H 167 H 241 H Calcium Phosphorus Lactate Dehydrogenase Total Creatine Kinase NT-Pro-B Natriuret Pep Albumin Gpfjm-4-Vkasnjkbx Ngbxf-5-Emntczqxh Beta Globulins PEP Interpretation Cholesterol LDL Cholesterol Direct Urine Creatinine 03/28/16 03/28/16 03/28/16 05:00 05:00 05:00 WBC RBC Hgb Hct MCV 83 L MCH 27 L MCHC RDW Plt Count 106 L Lymph % (Auto) [place] % (Auto) 10.1 H Lymph # [place] # 1.0 H Baso # Seg Neutrophils % 75.1 H Seg Neuts % (Manual) Lymphocytes % (Manual) Seg Neutrophils # Seg Neutrophils # Man Lymphocytes # (Manual) Monocytes # (Manual) PT INR APTT Heparin Anti-Xa Level POC ABG pH POC ABG pCO2 POC ABG pO2 Sodium 147 H D Potassium 3.1 L D Chloride 112.3 H Carbon Dioxide 21 L BUN Creatinine Glucose 208 H POC Glucose Calcium 7.0 L Phosphorus 2.2 L Lactate Dehydrogenase Total Creatine Kinase NT-Pro-B Natriuret Pep Albumin Ghjbh-3-Ftkrkfczp Ilbgo-3-Wmoxjoxmh Beta Globulins PEP Interpretation Cholesterol LDL Cholesterol Direct Urine Creatinine 03/28/16 03/28/16 03/28/16 05:14 08:41 10:56 WBC RBC Hgb Hct MCV MCH MCHC RDW Plt Count Lymph % (Auto) [place] % (Auto) Lymph # [place] # Baso # Seg Neutrophils % Seg Neuts % (Manual) Lymphocytes % (Manual) Seg Neutrophils # Seg Neutrophils # Man Lymphocytes # (Manual) Monocytes # (Manual) PT INR APTT Heparin Anti-Xa Level POC ABG pH 7.457 H POC ABG pCO2 29.7 L 27.7 L POC ABG pO2 Sodium Potassium Chloride Carbon Dioxide BUN Creatinine Glucose POC Glucose 228 H Calcium Phosphorus Lactate Dehydrogenase Total Creatine Kinase NT-Pro-B Natriuret Pep Albumin Wwqsn-0-Sjsodwsay Cxoqo-5-Ubukpcrov Beta Globulins PEP Interpretation Cholesterol LDL Cholesterol Direct Urine Creatinine 11/03/28/16 03/28/16 11:37 13:29 16:22 WBC RBC Hgb Hct MCV MCH MCHC RDW Plt Count Lymph % (Auto) [place] % (Auto) Lymph # [place] # Baso # Seg Neutrophils % Seg Neuts % (Manual) Lymphocytes % (Manual) Seg Neutrophils # Seg Neutrophils # Man Lymphocytes # (Manual) Monocytes # (Manual) PT INR APTT Heparin Anti-Xa Level POC ABG pH POC ABG pCO2 POC ABG pO2 Sodium Potassium Chloride Carbon Dioxide BUN Creatinine Glucose POC Glucose 226 H 200 H Calcium Phosphorus Lactate Dehydrogenase Total Creatine Kinase 356 H NT-Pro-B Natriuret Pep Albumin Scyyt-5-Bnvpvjgma Datwr-8-Luvjektxl Beta Globulins PEP Interpretation Cholesterol LDL Cholesterol Direct Urine Creatinine 03/28/16 03/29/16 03/29/16 21:48 04:50 04:50 WBC RBC Hgb 11.5 L Hct 35.3 L MCV 81 L MCH 26 L MCHC RDW Plt Count 97 L Lymph % (Auto) [place] % (Auto) 11.7 H Lymph # [place] # 1.1 H Baso # Seg Neutrophils % Seg Neuts % (Manual) Lymphocytes % (Manual) Seg Neutrophils # Seg Neutrophils # Man Lymphocytes # (Manual) Monocytes # (Manual) PT INR APTT Heparin Anti-Xa Level POC ABG pH POC ABG pCO2 POC ABG pO2 Sodium 136 L D Potassium 3.3 L Chloride Carbon Dioxide 20 L BUN Creatinine Glucose 386 H POC Glucose 188 H Calcium 6.8 L Phosphorus 1.6 L D Lactate Dehydrogenase Total Creatine Kinase NT-Pro-B Natriuret Pep Albumin Qvqkc-2-Ewratjesf Lvqow-7-Dlptusupm Beta Globulins PEP Interpretation Cholesterol LDL Cholesterol Direct Urine Creatinine 03/29/16 03/29/16 03/29/16 08:10 11:12 16:09 WBC RBC Hgb Hct MCV MCH MCHC RDW Plt Count Lymph % (Auto) [place] % (Auto) Lymph # [place] # Baso # Seg Neutrophils % Seg Neuts % (Manual) Lymphocytes % (Manual) Seg Neutrophils # Seg Neutrophils # Man Lymphocytes # (Manual) Monocytes # (Manual) PT INR APTT Heparin Anti-Xa Level POC ABG pH POC ABG pCO2 POC ABG pO2 Sodium Potassium Chloride Carbon Dioxide BUN Creatinine Glucose POC Glucose 230 H 180 H 46 L Calcium Phosphorus Lactate Dehydrogenase Total Creatine Kinase NT-Pro-B Natriuret Pep Albumin Ridbn-1-Rziiltkph Jmsef-7-Fnhdlsgkf Beta Globulins PEP Interpretation Cholesterol LDL Cholesterol Direct Urine Creatinine 03/29/16 03/29/16 03/30/16 16:12 18:15 02:53 WBC RBC Hgb Hct MCV MCH MCHC RDW Plt Count Lymph % (Auto) [place] % (Auto) Lymph # [place] # Baso # Seg Neutrophils % Seg Neuts % (Manual) Lymphocytes % (Manual) Seg Neutrophils # Seg Neutrophils # Man Lymphocytes # (Manual) Monocytes # (Manual) PT INR APTT Heparin Anti-Xa Level POC ABG pH POC ABG pCO2 POC ABG pO2 Sodium Potassium Chloride Carbon Dioxide BUN Creatinine Glucose POC Glucose 52 L 118 H 130 H Calcium Phosphorus Lactate Dehydrogenase Total Creatine Kinase NT-Pro-B Natriuret Pep Albumin Lwcap-7-Giimidjgr Txvxs-4-Jthknnetx Beta Globulins PEP Interpretation Cholesterol LDL Cholesterol Direct Urine Creatinine 03/30/16 03/30/16 03/30/16 04:00 04:00 05:29 WBC RBC Hgb Hct MCV 81 L MCH 26 L MCHC RDW Plt Count 116 L Lymph % (Auto) 10.8 L [place] % (Auto) 13.1 H Lymph # 1.0 L [place] # 1.3 H Baso # Seg Neutrophils % 74.2 H Seg Neuts % (Manual) Lymphocytes % (Manual) Seg Neutrophils # Seg Neutrophils # Man Lymphocytes # (Manual) Monocytes # (Manual) PT INR APTT Heparin Anti-Xa Level POC ABG pH 7.522 H POC ABG pCO2 22.7 L POC ABG pO2 137 H Sodium 147 H D Potassium Chloride 115.5 H Carbon Dioxide 20 L BUN Creatinine Glucose 116 H POC Glucose Calcium 7.6 L Phosphorus 2.3 L D Lactate Dehydrogenase Total Creatine Kinase NT-Pro-B Natriuret Pep Albumin Zrbdz-3-Anubydbiz Pvdmt-5-Urqgtosdo Beta Globulins PEP Interpretation Cholesterol LDL Cholesterol Direct Urine Creatinine 03/30/16 03/30/16 03/30/16 05:47 08:05 08:59 WBC RBC Hgb Hct MCV MCH MCHC RDW Plt Count Lymph % (Auto) [place] % (Auto) Lymph # [place] # Baso # Seg Neutrophils % Seg Neuts % (Manual) Lymphocytes % (Manual) Seg Neutrophils # Seg Neutrophils # Man Lymphocytes # (Manual) Monocytes # (Manual) PT INR APTT Heparin Anti-Xa Level POC ABG pH POC ABG pCO2 26.2 L POC ABG pO2 115 H Sodium Potassium Chloride Carbon Dioxide BUN Creatinine Glucose POC Glucose 138 H 171 H Calcium Phosphorus Lactate Dehydrogenase Total Creatine Kinase NT-Pro-B Natriuret Pep Albumin Yltce-3-Jpsmdciqy Rsobf-3-Jnqofsedc Beta Globulins PEP Interpretation Cholesterol LDL Cholesterol Direct Urine Creatinine 03/30/16 03/30/16 03/30/16 12:11 12:11 16:39 WBC RBC Hgb Hct MCV MCH MCHC RDW Plt Count Lymph % (Auto) [place] % (Auto) Lymph # [place] # Baso # Seg Neutrophils % Seg Neuts % (Manual) Lymphocytes % (Manual) Seg Neutrophils # Seg Neutrophils # Man Lymphocytes # (Manual) Monocytes # (Manual) PT INR APTT Heparin Anti-Xa Level POC ABG pH 7.476 H POC ABG pCO2 29.0 L POC ABG pO2 Sodium Potassium Chloride Carbon Dioxide BUN Creatinine Glucose POC Glucose 142 H 59 L Calcium Phosphorus Lactate Dehydrogenase Total Creatine Kinase NT-Pro-B Natriuret Pep Albumin Zjpui-4-Lpehgcumt Jaarb-7-Xqnpmjhax Beta Globulins PEP Interpretation Cholesterol LDL Cholesterol Direct Urine Creatinine 03/30/16 03/30/16 03/31/16 18:41 21:59 05:02 WBC RBC Hgb Hct MCV MCH MCHC RDW Plt Count Lymph % (Auto) [place] % (Auto) Lymph # [place] # Baso # Seg Neutrophils % Seg Neuts % (Manual) Lymphocytes % (Manual) Seg Neutrophils # Seg Neutrophils # Man Lymphocytes # (Manual) Monocytes # (Manual) PT INR APTT Heparin Anti-Xa Level POC ABG pH 7.519 H POC ABG pCO2 21.8 L POC ABG pO2 142 H Sodium Potassium Chloride Carbon Dioxide BUN Creatinine Glucose POC Glucose 145 H 154 H Calcium Phosphorus Lactate Dehydrogenase Total Creatine Kinase NT-Pro-B Natriuret Pep Albumin Vyqrp-1-Pbpstqzow Bnjao-9-Kbkxxupvd Beta Globulins PEP Interpretation Cholesterol LDL Cholesterol Direct Urine Creatinine 03/31/16 03/31/16 03/31/16 05:15 05:15 05:15 WBC 13.4 H RBC 5.21 H Hgb Hct MCV 81 L MCH 26 L MCHC RDW Plt Count Lymph % (Auto) 9.5 L [place] % (Auto) 14.0 H Lymph # [place] # 1.9 H Baso # Seg Neutrophils % 75.0 H Seg Neuts % (Manual) Lymphocytes % (Manual) Seg Neutrophils # 10.1 H Seg Neutrophils # Man Lymphocytes # (Manual) Monocytes # (Manual) PT INR APTT Heparin Anti-Xa Level POC ABG pH POC ABG pCO2 POC ABG pO2 Sodium Potassium Chloride 108.5 H Carbon Dioxide 19 L BUN Creatinine Glucose 188 H POC Glucose Calcium Phosphorus Lactate Dehydrogenase Total Creatine Kinase NT-Pro-B Natriuret Pep 1089 H Albumin Azlvk-1-Gwlcfxima Tfync-0-Ggxztttpa Beta Globulins PEP Interpretation Cholesterol LDL Cholesterol Direct Urine Creatinine 03/31/16 03/31/16 03/31/16 07:23 11:12 15:20 WBC RBC Hgb Hct MCV MCH MCHC RDW Plt Count Lymph % (Auto) [place] % (Auto) Lymph # [place] # Baso # Seg Neutrophils % Seg Neuts % (Manual) Lymphocytes % (Manual) Seg Neutrophils # Seg Neutrophils # Man Lymphocytes # (Manual) Monocytes # (Manual) PT INR APTT Heparin Anti-Xa Level POC ABG pH POC ABG pCO2 POC ABG pO2 Sodium Potassium Chloride Carbon Dioxide BUN Creatinine Glucose POC Glucose 233 H 228 H 208 H Calcium Phosphorus Lactate Dehydrogenase Total Creatine Kinase NT-Pro-B Natriuret Pep Albumin Skknf-5-Dpyqwylpj Madso-4-Cioitiawm Beta Globulins PEP Interpretation Cholesterol LDL Cholesterol Direct Urine Creatinine 03/31/16 04/01/16 04/01/16 21:27 04:41 05:35 WBC 12.1 H RBC Hgb Hct MCV 81 L MCH 26 L MCHC RDW Plt Count Lymph % (Auto) 8.5 L [place] % (Auto) 14.0 H Lymph # 1.0 L [place] # 1.7 H Baso # Seg Neutrophils % 76.2 H Seg Neuts % (Manual) Lymphocytes % (Manual) Seg Neutrophils # 9.2 H Seg Neutrophils # Man Lymphocytes # (Manual) Monocytes # (Manual) PT INR APTT Heparin Anti-Xa Level POC ABG pH 7.455 H POC ABG pCO2 31.0 L POC ABG pO2 Sodium Potassium Chloride Carbon Dioxide BUN Creatinine Glucose POC Glucose 162 H Calcium Phosphorus Lactate Dehydrogenase Total Creatine Kinase NT-Pro-B Natriuret Pep Albumin Ncqzf-9-Bgpqfdmzu Vkfom-2-Qhirpwuus Beta Globulins PEP Interpretation Cholesterol LDL Cholesterol Direct Urine Creatinine 04/01/16 04/01/16 04/01/16 05:35 08:44 12:49 WBC RBC Hgb Hct MCV MCH MCHC RDW Plt Count Lymph % (Auto) [place] % (Auto) Lymph # [place] # Baso # Seg Neutrophils % Seg Neuts % (Manual) Lymphocytes % (Manual) Seg Neutrophils # Seg Neutrophils # Man Lymphocytes # (Manual) Monocytes # (Manual) PT INR APTT Heparin Anti-Xa Level POC ABG pH POC ABG pCO2 POC ABG pO2 Sodium Potassium Chloride Carbon Dioxide BUN Creatinine Glucose 256 H POC Glucose 257 H 279 H Calcium 8.0 L Phosphorus Lactate Dehydrogenase Total Creatine Kinase NT-Pro-B Natriuret Pep 1205 H Albumin Umehd-8-Zmhgtxqdg Ncsyq-0-Mmppqznwt Beta Globulins PEP Interpretation Cholesterol LDL Cholesterol Direct Urine Creatinine 04/01/16 04/02/16 04/02/16 18:12 00:42 04:17 WBC RBC Hgb Hct MCV MCH MCHC RDW Plt Count Lymph % (Auto) [place] % (Auto) Lymph # [place] # Baso # Seg Neutrophils % Seg Neuts % (Manual) Lymphocytes % (Manual) Seg Neutrophils # Seg Neutrophils # Man Lymphocytes # (Manual) Monocytes # (Manual) PT INR APTT Heparin Anti-Xa Level POC ABG pH 7.582 H POC ABG pCO2 26.8 L POC ABG pO2 Sodium Potassium Chloride Carbon Dioxide BUN Creatinine Glucose POC Glucose 168 H 282 H Calcium Phosphorus Lactate Dehydrogenase Total Creatine Kinase NT-Pro-B Natriuret Pep Albumin Emnwt-3-Zqpqoiswo Jboqb-1-Dujxmglbc Beta Globulins PEP Interpretation Cholesterol LDL Cholesterol Direct Urine Creatinine 04/02/16 04/02/16 04/02/16 05:00 05:00 06:27 WBC 12.4 H RBC Hgb Hct MCV 81 L MCH 26 L MCHC RDW Plt Count Lymph % (Auto) 6.4 L [place] % (Auto) 13.3 H Lymph # 0.8 L [place] # 1.7 H Baso # Seg Neutrophils % 79.4 H Seg Neuts % (Manual) Lymphocytes % (Manual) Seg Neutrophils # 9.9 H Seg Neutrophils # Man Lymphocytes # (Manual) Monocytes # (Manual) PT INR APTT Heparin Anti-Xa Level POC ABG pH POC ABG pCO2 POC ABG pO2 Sodium 146 H Potassium Chloride Carbon Dioxide BUN Creatinine Glucose 334 H POC Glucose 317 H Calcium 8.0 L Phosphorus Lactate Dehydrogenase Total Creatine Kinase NT-Pro-B Natriuret Pep Albumin Zpxen-6-Rskceutse Erpoq-5-Misbecpqf Beta Globulins PEP Interpretation Cholesterol LDL Cholesterol Direct Urine Creatinine 04/02/16 04/02/16 04/02/16 11:51 13:10 17:24 WBC RBC Hgb Hct MCV MCH MCHC RDW Plt Count Lymph % (Auto) [place] % (Auto) Lymph # [place] # Baso # Seg Neutrophils % Seg Neuts % (Manual) Lymphocytes % (Manual) Seg Neutrophils # Seg Neutrophils # Man Lymphocytes # (Manual) Monocytes # (Manual) PT INR APTT Heparin Anti-Xa Level POC ABG pH 7.518 H POC ABG pCO2 POC ABG pO2 Sodium Potassium Chloride Carbon Dioxide BUN Creatinine Glucose POC Glucose 278 H 195 H Calcium Phosphorus Lactate Dehydrogenase Total Creatine Kinase NT-Pro-B Natriuret Pep Albumin Xjfkw-9-Bqqnsjwfn Jljui-5-Qxrsnbdrz Beta Globulins PEP Interpretation Cholesterol LDL Cholesterol Direct Urine Creatinine 04/03/16 04/03/16 04/03/16 00:18 04:10 04:10 WBC 14.3 H RBC Hgb Hct MCV 81 L MCH 26 L MCHC RDW Plt Count Lymph % (Auto) 9.0 L [place] % (Auto) 10.7 H Lymph # [place] # 1.5 H Baso # 0.2 H Seg Neutrophils % 78.5 H Seg Neuts % (Manual) Lymphocytes % (Manual) Seg Neutrophils # 11.3 H Seg Neutrophils # Man Lymphocytes # (Manual) Monocytes # (Manual) PT INR APTT Heparin Anti-Xa Level POC ABG pH POC ABG pCO2 POC ABG pO2 Sodium 148 H Potassium Chloride 108.1 H Carbon Dioxide BUN 21 H Creatinine Glucose 227 H POC Glucose 144 H Calcium 8.2 L Phosphorus Lactate Dehydrogenase Total Creatine Kinase NT-Pro-B Natriuret Pep Albumin Fzeru-2-Nfmtewtha Xclgq-4-Dtozcgaqi Beta Globulins PEP Interpretation Cholesterol LDL Cholesterol Direct Urine Creatinine 04/03/16 04/03/16 04/04/16 11:14 17:10 04:00 WBC 14.5 H RBC Hgb Hct MCV 81 L MCH 26 L MCHC RDW Plt Count Lymph % (Auto) 7.2 L [place] % (Auto) 7.6 H Lymph # 1.0 L [place] # 1.1 H Baso # Seg Neutrophils % 84.5 H Seg Neuts % (Manual) Lymphocytes % (Manual) Seg Neutrophils # 12.3 H Seg Neutrophils # Man Lymphocytes # (Manual) Monocytes # (Manual) PT INR APTT Heparin Anti-Xa Level POC ABG pH POC ABG pCO2 POC ABG pO2 Sodium Potassium Chloride Carbon Dioxide BUN Creatinine Glucose POC Glucose 267 H 212 H Calcium Phosphorus Lactate Dehydrogenase Total Creatine Kinase NT-Pro-B Natriuret Pep Albumin Habvo-0-Ucurzzxml Tpjuq-8-Lonimazti Beta Globulins PEP Interpretation Cholesterol LDL Cholesterol Direct Urine Creatinine 04/04/16 04/04/16 04/04/16 05:00 09:55 09:55 WBC RBC Hgb 11.5 L Hct MCV MCH MCHC RDW Plt Count Lymph % (Auto) [place] % (Auto) Lymph # [place] # Baso # Seg Neutrophils % Seg Neuts % (Manual) Lymphocytes % (Manual) Seg Neutrophils # Seg Neutrophils # Man Lymphocytes # (Manual) Monocytes # (Manual) PT INR APTT 42.1 H Heparin Anti-Xa Level POC ABG pH POC ABG pCO2 POC ABG pO2 Sodium 146 H Potassium Chloride Carbon Dioxide BUN 22 H Creatinine Glucose 128 H POC Glucose Calcium Phosphorus Lactate Dehydrogenase Total Creatine Kinase NT-Pro-B Natriuret Pep Albumin Zbpym-3-Wgsyeyhdj Boesq-3-Hhlvryvds Beta Globulins PEP Interpretation Cholesterol LDL Cholesterol Direct Urine Creatinine 04/04/16 04/04/16 04/04/16 11:45 17:49 17:55 WBC RBC Hgb Hct MCV MCH MCHC RDW Plt Count Lymph % (Auto) [place] % (Auto) Lymph # [place] # Baso # Seg Neutrophils % Seg Neuts % (Manual) Lymphocytes % (Manual) Seg Neutrophils # Seg Neutrophils # Man Lymphocytes # (Manual) Monocytes # (Manual) PT INR APTT Heparin Anti-Xa Level 1.19 H POC ABG pH POC ABG pCO2 POC ABG pO2 Sodium Potassium Chloride Carbon Dioxide BUN Creatinine Glucose POC Glucose 231 H 186 H Calcium Phosphorus Lactate Dehydrogenase Total Creatine Kinase NT-Pro-B Natriuret Pep Albumin Yjjhv-4-Hiqnczftd Xucgh-6-Cpatzivgu Beta Globulins PEP Interpretation Cholesterol LDL Cholesterol Direct Urine Creatinine 04/05/16 04/05/16 04/05/16 00:35 05:32 05:42 WBC RBC Hgb Hct MCV MCH MCHC RDW Plt Count Lymph % (Auto) [place] % (Auto) Lymph # [place] # Baso # Seg Neutrophils % Seg Neuts % (Manual) Lymphocytes % (Manual) Seg Neutrophils # Seg Neutrophils # Man Lymphocytes # (Manual) Monocytes # (Manual) PT INR APTT Heparin Anti-Xa Level POC ABG pH 7.491 H POC ABG pCO2 POC ABG pO2 Sodium Potassium Chloride Carbon Dioxide BUN Creatinine Glucose POC Glucose 192 H 242 H Calcium Phosphorus Lactate Dehydrogenase Total Creatine Kinase NT-Pro-B Natriuret Pep Albumin Twgll-3-Ewwkymknh Hnokn-9-Pbismstfq Beta Globulins PEP Interpretation Cholesterol LDL Cholesterol Direct Urine Creatinine 04/05/16 04/05/16 04/05/16 06:20 06:20 12:19 WBC 13.9 H RBC Hgb 11.6 L Hct MCV 81 L MCH 26 L MCHC RDW Plt Count Lymph % (Auto) 9.6 L [place] % (Auto) 8.7 H Lymph # [place] # 1.2 H Baso # Seg Neutrophils % 80.9 H Seg Neuts % (Manual) Lymphocytes % (Manual) Seg Neutrophils # 11.3 H Seg Neutrophils # Man Lymphocytes # (Manual) Monocytes # (Manual) PT INR APTT Heparin Anti-Xa Level POC ABG pH POC ABG pCO2 POC ABG pO2 Sodium 148 H Potassium Chloride Carbon Dioxide BUN 23 H Creatinine Glucose 242 H POC Glucose 187 H Calcium Phosphorus Lactate Dehydrogenase Total Creatine Kinase NT-Pro-B Natriuret Pep Albumin Dacvd-1-Tuclajkba Tjugh-5-Olbwlsrqm Beta Globulins PEP Interpretation Cholesterol LDL Cholesterol Direct Urine Creatinine 04/05/16 04/05/16 04/06/16 17:10 23:45 05:23 WBC 13.0 H RBC Hgb Hct MCV 82 L MCH 26 L MCHC 31 L RDW Plt Count Lymph % (Auto) 6.7 L [place] % (Auto) 8.3 H Lymph # 0.9 L [place] # 1.1 H Baso # Seg Neutrophils % 84.6 H Seg Neuts % (Manual) Lymphocytes % (Manual) Seg Neutrophils # 11.0 H Seg Neutrophils # Man Lymphocytes # (Manual) Monocytes # (Manual) PT INR APTT Heparin Anti-Xa Level POC ABG pH POC ABG pCO2 POC ABG pO2 Sodium Potassium Chloride Carbon Dioxide BUN Creatinine Glucose POC Glucose 169 H 202 H Calcium Phosphorus Lactate Dehydrogenase Total Creatine Kinase NT-Pro-B Natriuret Pep Albumin Neoaz-8-Wysdkdpko Qeady-8-Cghkikhhq Beta Globulins PEP Interpretation Cholesterol LDL Cholesterol Direct Urine Creatinine 04/06/16 04/06/16 04/06/16 05:23 05:23 06:11 WBC RBC Hgb Hct MCV MCH MCHC RDW Plt Count Lymph % (Auto) [place] % (Auto) Lymph # [place] # Baso # Seg Neutrophils % Seg Neuts % (Manual) Lymphocytes % (Manual) Seg Neutrophils # Seg Neutrophils # Man Lymphocytes # (Manual) Monocytes # (Manual) PT INR APTT Heparin Anti-Xa Level 0.21 L POC ABG pH POC ABG pCO2 POC ABG pO2 Sodium 153 H Potassium Chloride 111.3 H Carbon Dioxide BUN 22 H Creatinine Glucose 62 L POC Glucose 56 L Calcium Phosphorus Lactate Dehydrogenase Total Creatine Kinase NT-Pro-B Natriuret Pep Albumin Jvusu-5-Rvxwnidxa Dvlqr-3-Igznomrjb Beta Globulins PEP Interpretation Cholesterol LDL Cholesterol Direct Urine Creatinine 04/06/16 04/06/16 04/06/16 06:52 11:36 14:58 WBC RBC Hgb Hct MCV MCH MCHC RDW Plt Count Lymph % (Auto) [place] % (Auto) Lymph # [place] # Baso # Seg Neutrophils % Seg Neuts % (Manual) Lymphocytes % (Manual) Seg Neutrophils # Seg Neutrophils # Man Lymphocytes # (Manual) Monocytes # (Manual) PT INR APTT Heparin Anti-Xa Level POC ABG pH POC ABG pCO2 POC ABG pO2 Sodium Potassium Chloride Carbon Dioxide BUN Creatinine Glucose POC Glucose 206 H 139 H 147 H Calcium Phosphorus Lactate Dehydrogenase Total Creatine Kinase NT-Pro-B Natriuret Pep Albumin Emofe-3-Plysurksc Rdkkh-1-Vfobfdtiy Beta Globulins PEP Interpretation Cholesterol LDL Cholesterol Direct Urine Creatinine 04/06/16 04/06/16 04/06/16 16:03 21:18 23:53 WBC RBC Hgb Hct MCV MCH MCHC RDW Plt Count Lymph % (Auto) [place] % (Auto) Lymph # [place] # Baso # Seg Neutrophils % Seg Neuts % (Manual) Lymphocytes % (Manual) Seg Neutrophils # Seg Neutrophils # Man Lymphocytes # (Manual) Monocytes # (Manual) PT INR APTT Heparin Anti-Xa Level POC ABG pH POC ABG pCO2 POC ABG pO2 Sodium Potassium Chloride Carbon Dioxide BUN Creatinine Glucose POC Glucose 154 H 293 H 301 H Calcium Phosphorus Lactate Dehydrogenase Total Creatine Kinase NT-Pro-B Natriuret Pep Albumin Ctcal-8-Gjqukfmbm Dpgvm-9-Srcbuqzjp Beta Globulins PEP Interpretation Cholesterol LDL Cholesterol Direct Urine Creatinine 04/07/16 04/07/16 04/07/16 02:30 05:11 05:11 WBC 12.5 H RBC Hgb 11.5 L Hct MCV 82 L MCH 26 L MCHC 31 L RDW Plt Count Lymph % (Auto) [place] % (Auto) Lymph # [place] # Baso # Seg Neutrophils % Seg Neuts % (Manual) Lymphocytes % (Manual) Seg Neutrophils # Seg Neutrophils # Man Lymphocytes # (Manual) Monocytes # (Manual) PT INR APTT Heparin Anti-Xa Level 0.11 L POC ABG pH POC ABG pCO2 POC ABG pO2 Sodium 150 H Potassium Chloride 109.5 H Carbon Dioxide BUN 28 H Creatinine Glucose 264 H POC Glucose Calcium Phosphorus Lactate Dehydrogenase Total Creatine Kinase NT-Pro-B Natriuret Pep Albumin Pcphe-5-Qpizixmzq Xfybm-7-Tvnipihkm Beta Globulins PEP Interpretation Cholesterol LDL Cholesterol Direct Urine Creatinine 04/07/16 04/07/16 04/07/16 06:46 10:18 11:50 WBC RBC Hgb Hct MCV MCH MCHC RDW Plt Count Lymph % (Auto) [place] % (Auto) Lymph # [place] # Baso # Seg Neutrophils % Seg Neuts % (Manual) Lymphocytes % (Manual) Seg Neutrophils # Seg Neutrophils # Man Lymphocytes # (Manual) Monocytes # (Manual) PT 15.1 H INR 1.20 H APTT Heparin Anti-Xa Level POC ABG pH POC ABG pCO2 POC ABG pO2 Sodium Potassium Chloride Carbon Dioxide BUN Creatinine Glucose POC Glucose 259 H 288 H Calcium Phosphorus Lactate Dehydrogenase Total Creatine Kinase NT-Pro-B Natriuret Pep Albumin Ebczt-1-Ozszpfiqh Sjfzl-4-Nrssxxkno Beta Globulins PEP Interpretation Cholesterol LDL Cholesterol Direct Urine Creatinine 04/07/16 04/08/16 04/08/16 17:58 01:25 06:49 WBC RBC Hgb Hct MCV MCH MCHC RDW Plt Count Lymph % (Auto) [place] % (Auto) Lymph # [place] # Baso # Seg Neutrophils % Seg Neuts % (Manual) Lymphocytes % (Manual) Seg Neutrophils # Seg Neutrophils # Man Lymphocytes # (Manual) Monocytes # (Manual) PT INR APTT Heparin Anti-Xa Level POC ABG pH POC ABG pCO2 POC ABG pO2 Sodium 156 H Potassium Chloride 114.7 H Carbon Dioxide BUN 33 H Creatinine Glucose 169 H POC Glucose 330 H 146 H Calcium Phosphorus Lactate Dehydrogenase Total Creatine Kinase NT-Pro-B Natriuret Pep Albumin Irmmk-9-Azypolloz Eehwm-3-Nbxijpqgg Beta Globulins PEP Interpretation Cholesterol LDL Cholesterol Direct Urine Creatinine 04/08/16 04/08/16 04/08/16 07:34 10:28 10:28 WBC RBC Hgb Hct MCV MCH MCHC RDW Plt Count Lymph % (Auto) [place] % (Auto) Lymph # [place] # Baso # Seg Neutrophils % Seg Neuts % (Manual) Lymphocytes % (Manual) Seg Neutrophils # Seg Neutrophils # Man Lymphocytes # (Manual) Monocytes # (Manual) PT 15.5 H INR 1.24 H APTT Heparin Anti-Xa Level 0.24 L POC ABG pH POC ABG pCO2 POC ABG pO2 Sodium Potassium Chloride Carbon Dioxide BUN Creatinine Glucose POC Glucose 232 H Calcium Phosphorus Lactate Dehydrogenase Total Creatine Kinase NT-Pro-B Natriuret Pep Albumin Nhfpd-5-Zgoupkfkh Kcfqz-2-Vrplztibl Beta Globulins PEP Interpretation Cholesterol LDL Cholesterol Direct Urine Creatinine 04/08/16 04/08/16 04/09/16 11:36 15:38 00:01 WBC RBC Hgb Hct MCV MCH MCHC RDW Plt Count Lymph % (Auto) [place] % (Auto) Lymph # [place] # Baso # Seg Neutrophils % Seg Neuts % (Manual) Lymphocytes % (Manual) Seg Neutrophils # Seg Neutrophils # Man Lymphocytes # (Manual) Monocytes # (Manual) PT INR APTT Heparin Anti-Xa Level POC ABG pH POC ABG pCO2 POC ABG pO2 Sodium Potassium Chloride Carbon Dioxide BUN Creatinine Glucose POC Glucose 193 H 163 H 180 H Calcium Phosphorus Lactate Dehydrogenase Total Creatine Kinase NT-Pro-B Natriuret Pep Albumin Rbmdr-8-Zkjmtsgev Erohu-9-Njuaktjty Beta Globulins PEP Interpretation Cholesterol LDL Cholesterol Direct Urine Creatinine 04/09/16 04/09/16 04/09/16 06:17 06:42 06:42 WBC RBC Hgb Hct MCV MCH MCHC RDW Plt Count Lymph % (Auto) [place] % (Auto) Lymph # [place] # Baso # Seg Neutrophils % Seg Neuts % (Manual) Lymphocytes % (Manual) Seg Neutrophils # Seg Neutrophils # Man Lymphocytes # (Manual) Monocytes # (Manual) PT 17.4 H INR 1.43 H APTT Heparin Anti-Xa Level POC ABG pH POC ABG pCO2 POC ABG pO2 Sodium 153 H Potassium Chloride 113.2 H Carbon Dioxide BUN 29 H Creatinine Glucose 301 H POC Glucose 249 H Calcium 8.3 L Phosphorus Lactate Dehydrogenase Total Creatine Kinase NT-Pro-B Natriuret Pep Albumin Lobnj-4-Xmbwjyaia Cjjwb-9-Xtcpukcsj Beta Globulins PEP Interpretation Cholesterol LDL Cholesterol Direct Urine Creatinine 04/09/16 04/09/16 04/09/16 07:37 11:26 15:45 WBC RBC Hgb Hct MCV MCH MCHC RDW Plt Count Lymph % (Auto) [place] % (Auto) Lymph # [place] # Baso # Seg Neutrophils % Seg Neuts % (Manual) Lymphocytes % (Manual) Seg Neutrophils # Seg Neutrophils # Man Lymphocytes # (Manual) Monocytes # (Manual) PT INR APTT Heparin Anti-Xa Level POC ABG pH POC ABG pCO2 POC ABG pO2 Sodium Potassium Chloride Carbon Dioxide BUN Creatinine Glucose POC Glucose 283 H 306 H 354 H Calcium Phosphorus Lactate Dehydrogenase Total Creatine Kinase NT-Pro-B Natriuret Pep Albumin Iikuu-4-Xfiuvxuaw Bwppb-4-Aqbgrccme Beta Globulins PEP Interpretation Cholesterol LDL Cholesterol Direct Urine Creatinine 04/10/16 04/10/16 04/10/16 00:53 07:15 07:34 WBC RBC Hgb 11.3 L Hct MCV MCH MCHC RDW Plt Count Lymph % (Auto) [place] % (Auto) Lymph # [place] # Baso # Seg Neutrophils % Seg Neuts % (Manual) Lymphocytes % (Manual) Seg Neutrophils # Seg Neutrophils # Man Lymphocytes # (Manual) Monocytes # (Manual) PT INR APTT Heparin Anti-Xa Level POC ABG pH POC ABG pCO2 POC ABG pO2 Sodium Potassium Chloride Carbon Dioxide BUN Creatinine Glucose POC Glucose 323 H 311 H Calcium Phosphorus Lactate Dehydrogenase Total Creatine Kinase NT-Pro-B Natriuret Pep Albumin Xbtzm-7-Syvgwegdv Lwxcc-3-Xuywlcixt Beta Globulins PEP Interpretation Cholesterol LDL Cholesterol Direct Urine Creatinine 04/10/16 04/10/16 04/10/16 07:34 07:34 11:25 WBC RBC Hgb Hct MCV MCH MCHC RDW Plt Count Lymph % (Auto) [place] % (Auto) Lymph # [place] # Baso # Seg Neutrophils % Seg Neuts % (Manual) Lymphocytes % (Manual) Seg Neutrophils # Seg Neutrophils # Man Lymphocytes # (Manual) Monocytes # (Manual) PT 17.3 H INR 1.42 H APTT Heparin Anti-Xa Level POC ABG pH POC ABG pCO2 POC ABG pO2 Sodium 158 H Potassium Chloride 118.6 H Carbon Dioxide BUN 30 H Creatinine Glucose 330 H POC Glucose 335 H Calcium 8.3 L Phosphorus Lactate Dehydrogenase Total Creatine Kinase NT-Pro-B Natriuret Pep Albumin Xklmk-5-Wkkbdkvsx Lnjar-9-Agbhvralq Beta Globulins PEP Interpretation Cholesterol LDL Cholesterol Direct Urine Creatinine 04/10/16 04/11/16 04/11/16 16:21 00:29 07:47 WBC RBC Hgb Hct MCV MCH MCHC RDW Plt Count Lymph % (Auto) [place] % (Auto) Lymph # [place] # Baso # Seg Neutrophils % Seg Neuts % (Manual) Lymphocytes % (Manual) Seg Neutrophils # Seg Neutrophils # Man Lymphocytes # (Manual) Monocytes # (Manual) PT 18.4 H INR 1.53 H APTT Heparin Anti-Xa Level POC ABG pH POC ABG pCO2 POC ABG pO2 Sodium Potassium Chloride Carbon Dioxide BUN Creatinine Glucose POC Glucose 230 H 162 H Calcium Phosphorus Lactate Dehydrogenase Total Creatine Kinase NT-Pro-B Natriuret Pep Albumin Eugay-0-Icguhwmuf Yaaqv-2-Jssufjxgi Beta Globulins PEP Interpretation Cholesterol LDL Cholesterol Direct Urine Creatinine 04/11/16 04/11/16 04/12/16 07:47 11:22 04:54 WBC RBC Hgb 11.0 L Hct 35.0 L MCV MCH MCHC RDW Plt Count Lymph % (Auto) [place] % (Auto) Lymph # [place] # Baso # Seg Neutrophils % Seg Neuts % (Manual) Lymphocytes % (Manual) Seg Neutrophils # Seg Neutrophils # Man Lymphocytes # (Manual) Monocytes # (Manual) PT INR APTT Heparin Anti-Xa Level POC ABG pH POC ABG pCO2 POC ABG pO2 Sodium 155 H Potassium Chloride 114.5 H Carbon Dioxide BUN 23 H Creatinine Glucose 157 H POC Glucose 229 H Calcium Phosphorus Lactate Dehydrogenase Total Creatine Kinase NT-Pro-B Natriuret Pep Albumin Axtjq-1-Giebvbulo Rrscu-8-Ohqlhkera Beta Globulins PEP Interpretation Cholesterol LDL Cholesterol Direct Urine Creatinine 04/12/16 04/12/16 04/12/16 04:54 04:54 05:57 WBC RBC Hgb Hct MCV MCH MCHC RDW Plt Count Lymph % (Auto) [place] % (Auto) Lymph # [place] # Baso # Seg Neutrophils % Seg Neuts % (Manual) Lymphocytes % (Manual) Seg Neutrophils # Seg Neutrophils # Man Lymphocytes # (Manual) Monocytes # (Manual) PT 22.5 H INR 1.98 H APTT Heparin Anti-Xa Level 0.19 L POC ABG pH POC ABG pCO2 POC ABG pO2 Sodium 156 H Potassium Chloride 115.4 H Carbon Dioxide BUN 23 H Creatinine Glucose 143 H POC Glucose 194 H Calcium Phosphorus Lactate Dehydrogenase Total Creatine Kinase NT-Pro-B Natriuret Pep Albumin Mzgmv-0-Pzxcxhgae Lwzfm-6-Mljrwqvvo Beta Globulins PEP Interpretation Cholesterol LDL Cholesterol Direct Urine Creatinine 04/12/16 04/12/16 04/12/16 12:34 19:01 23:30 WBC RBC Hgb Hct MCV MCH MCHC RDW Plt Count Lymph % (Auto) [place] % (Auto) Lymph # [place] # Baso # Seg Neutrophils % Seg Neuts % (Manual) Lymphocytes % (Manual) Seg Neutrophils # Seg Neutrophils # Man Lymphocytes # (Manual) Monocytes # (Manual) PT INR APTT Heparin Anti-Xa Level POC ABG pH POC ABG pCO2 POC ABG pO2 Sodium Potassium Chloride Carbon Dioxide BUN Creatinine Glucose POC Glucose 291 H 235 H 154 H Calcium Phosphorus Lactate Dehydrogenase Total Creatine Kinase NT-Pro-B Natriuret Pep Albumin Sngms-9-Debjsekhy Bpalj-7-Mqepbmfsj Beta Globulins PEP Interpretation Cholesterol LDL Cholesterol Direct Urine Creatinine 04/13/16 04/13/16 04/13/16 05:16 05:16 05:28 WBC RBC Hgb Hct MCV MCH MCHC RDW Plt Count Lymph % (Auto) [place] % (Auto) Lymph # [place] # Baso # Seg Neutrophils % Seg Neuts % (Manual) Lymphocytes % (Manual) Seg Neutrophils # Seg Neutrophils # Man Lymphocytes # (Manual) Monocytes # (Manual) PT 27.0 H INR 2.49 H APTT Heparin Anti-Xa Level 0.20 L POC ABG pH POC ABG pCO2 POC ABG pO2 Sodium 150 H Potassium Chloride 110.5 H Carbon Dioxide BUN 21 H Creatinine Glucose 159 H POC Glucose 177 H Calcium Phosphorus Lactate Dehydrogenase Total Creatine Kinase NT-Pro-B Natriuret Pep Albumin Ybiqn-4-Wbjszqesu Mvyob-8-Fshslozxl Beta Globulins PEP Interpretation Cholesterol LDL Cholesterol Direct Urine Creatinine 04/13/16 04/13/16 04/14/16 11:30 17:54 00:44 WBC RBC Hgb Hct MCV MCH MCHC RDW Plt Count Lymph % (Auto) [place] % (Auto) Lymph # [place] # Baso # Seg Neutrophils % Seg Neuts % (Manual) Lymphocytes % (Manual) Seg Neutrophils # Seg Neutrophils # Man Lymphocytes # (Manual) Monocytes # (Manual) PT INR APTT Heparin Anti-Xa Level POC ABG pH POC ABG pCO2 POC ABG pO2 Sodium Potassium Chloride Carbon Dioxide BUN Creatinine Glucose POC Glucose 181 H 251 H 237 H Calcium Phosphorus Lactate Dehydrogenase Total Creatine Kinase NT-Pro-B Natriuret Pep Albumin Olegn-5-Bkrvbulir Gdbtf-6-Pgamvtguz Beta Globulins PEP Interpretation Cholesterol LDL Cholesterol Direct Urine Creatinine 04/14/16 04/14/16 04/14/16 05:00 05:42 05:42 WBC RBC Hgb Hct MCV MCH MCHC RDW Plt Count Lymph % (Auto) [place] % (Auto) Lymph # [place] # Baso # Seg Neutrophils % Seg Neuts % (Manual) Lymphocytes % (Manual) Seg Neutrophils # Seg Neutrophils # Man Lymphocytes # (Manual) Monocytes # (Manual) PT 30.3 H INR 2.88 H APTT Heparin Anti-Xa Level 0.27 L POC ABG pH POC ABG pCO2 POC ABG pO2 Sodium Potassium 3.5 L Chloride Carbon Dioxide BUN Creatinine Glucose 160 H POC Glucose Calcium 8.2 L Phosphorus Lactate Dehydrogenase Total Creatine Kinase NT-Pro-B Natriuret Pep Albumin Stwep-7-Bsljonuen Algsq-5-Zraofbasq Beta Globulins PEP Interpretation Cholesterol LDL Cholesterol Direct Urine Creatinine 04/14/16 04/14/16 04/14/16 06:02 06:16 09:18 WBC 12.3 H RBC Hgb 11.4 L Hct MCV 82 L MCH 26 L MCHC RDW Plt Count Lymph % (Auto) [place] % (Auto) Lymph # [place] # Baso # Seg Neutrophils % Seg Neuts % (Manual) Lymphocytes % (Manual) Seg Neutrophils # Seg Neutrophils # Man Lymphocytes # (Manual) Monocytes # (Manual) PT INR APTT Heparin Anti-Xa Level POC ABG pH POC ABG pCO2 POC ABG pO2 Sodium Potassium Chloride Carbon Dioxide BUN Creatinine Glucose POC Glucose 156 H 164 H Calcium Phosphorus Lactate Dehydrogenase Total Creatine Kinase NT-Pro-B Natriuret Pep Albumin Enhbp-5-Tvtgstwrf Ysdje-9-Ddrtrcaan Beta Globulins PEP Interpretation Cholesterol LDL Cholesterol Direct Urine Creatinine 04/14/16 04/15/16 04/15/16 13:58 01:07 06:04 WBC RBC Hgb Hct MCV MCH MCHC RDW Plt Count Lymph % (Auto) [place] % (Auto) Lymph # [place] # Baso # Seg Neutrophils % Seg Neuts % (Manual) Lymphocytes % (Manual) Seg Neutrophils # Seg Neutrophils # Man Lymphocytes # (Manual) Monocytes # (Manual) PT 24.9 H INR 2.25 H APTT Heparin Anti-Xa Level POC ABG pH POC ABG pCO2 POC ABG pO2 Sodium Potassium Chloride Carbon Dioxide BUN Creatinine Glucose POC Glucose 109 H 154 H Calcium Phosphorus Lactate Dehydrogenase Total Creatine Kinase NT-Pro-B Natriuret Pep Albumin Qbvvb-6-Vkcwcpttj Nbmek-1-Slocseiiy Beta Globulins PEP Interpretation Cholesterol LDL Cholesterol Direct Urine Creatinine 04/15/16 04/15/16 04/16/16 06:08 12:41 00:38 WBC RBC Hgb Hct MCV MCH MCHC RDW Plt Count Lymph % (Auto) [place] % (Auto) Lymph # [place] # Baso # Seg Neutrophils % Seg Neuts % (Manual) Lymphocytes % (Manual) Seg Neutrophils # Seg Neutrophils # Man Lymphocytes # (Manual) Monocytes # (Manual) PT INR APTT Heparin Anti-Xa Level POC ABG pH POC ABG pCO2 POC ABG pO2 Sodium Potassium Chloride Carbon Dioxide BUN Creatinine Glucose POC Glucose 165 H 223 H 216 H Calcium Phosphorus Lactate Dehydrogenase Total Creatine Kinase NT-Pro-B Natriuret Pep Albumin Nanbh-2-Vlprjwfgj Xbqrx-6-Hmgjgnonn Beta Globulins PEP Interpretation Cholesterol LDL Cholesterol Direct Urine Creatinine 04/16/16 04/16/16 04/16/16 05:45 07:09 14:00 WBC RBC Hgb Hct MCV MCH MCHC RDW Plt Count Lymph % (Auto) [place] % (Auto) Lymph # [place] # Baso # Seg Neutrophils % Seg Neuts % (Manual) Lymphocytes % (Manual) Seg Neutrophils # Seg Neutrophils # Man Lymphocytes # (Manual) Monocytes # (Manual) PT 19.4 H INR 1.64 H APTT Heparin Anti-Xa Level 0.10 L POC ABG pH POC ABG pCO2 POC ABG pO2 Sodium Potassium Chloride Carbon Dioxide BUN Creatinine Glucose POC Glucose 207 H 69 L Calcium Phosphorus Lactate Dehydrogenase Total Creatine Kinase NT-Pro-B Natriuret Pep Albumin Nmmgk-7-Xpcnnjocj Texze-9-Zqkrobkav Beta Globulins PEP Interpretation Cholesterol LDL Cholesterol Direct Urine Creatinine 04/16/16 04/16/16 04/16/16 17:40 17:52 19:38 WBC RBC Hgb Hct MCV MCH MCHC RDW Plt Count Lymph % (Auto) [place] % (Auto) Lymph # [place] # Baso # Seg Neutrophils % Seg Neuts % (Manual) Lymphocytes % (Manual) Seg Neutrophils # Seg Neutrophils # Man Lymphocytes # (Manual) Monocytes # (Manual) PT INR APTT Heparin Anti-Xa Level 0.26 L POC ABG pH 7.543 H 7.488 H POC ABG pCO2 26.3 L 30.3 L POC ABG pO2 55 L 203 H Sodium Potassium Chloride Carbon Dioxide BUN Creatinine Glucose POC Glucose Calcium Phosphorus Lactate Dehydrogenase Total Creatine Kinase NT-Pro-B Natriuret Pep Albumin Qljww-2-Gacwopdsi Uemkd-8-Evxgvnkrr Beta Globulins PEP Interpretation Cholesterol LDL Cholesterol Direct Urine Creatinine 04/17/16 04/17/16 04/17/16 00:04 05:10 05:36 WBC RBC Hgb Hct MCV MCH MCHC RDW Plt Count Lymph % (Auto) [place] % (Auto) Lymph # [place] # Baso # Seg Neutrophils % Seg Neuts % (Manual) Lymphocytes % (Manual) Seg Neutrophils # Seg Neutrophils # Man Lymphocytes # (Manual) Monocytes # (Manual) PT INR APTT Heparin Anti-Xa Level POC ABG pH POC ABG pCO2 32.7 L POC ABG pO2 68 L Sodium Potassium Chloride Carbon Dioxide BUN Creatinine Glucose POC Glucose 113 H 161 H Calcium Phosphorus Lactate Dehydrogenase Total Creatine Kinase NT-Pro-B Natriuret Pep Albumin Lrunc-7-Pecbuislz Jrzov-8-Nlrlcfrbb Beta Globulins PEP Interpretation Cholesterol LDL Cholesterol Direct Urine Creatinine 04/17/16 04/17/16 04/17/16 05:41 08:37 11:46 WBC RBC Hgb Hct MCV MCH MCHC RDW Plt Count Lymph % (Auto) [place] % (Auto) Lymph # [place] # Baso # Seg Neutrophils % Seg Neuts % (Manual) Lymphocytes % (Manual) Seg Neutrophils # Seg Neutrophils # Man Lymphocytes # (Manual) Monocytes # (Manual) PT 17.4 H INR 1.43 H APTT Heparin Anti-Xa Level POC ABG pH POC ABG pCO2 POC ABG pO2 Sodium Potassium Chloride Carbon Dioxide BUN Creatinine Glucose POC Glucose 154 H 138 H Calcium Phosphorus Lactate Dehydrogenase Total Creatine Kinase NT-Pro-B Natriuret Pep Albumin Srdtm-5-Dmjpzomnw Bcenk-9-Hrjgywqhj Beta Globulins PEP Interpretation Cholesterol LDL Cholesterol Direct Urine Creatinine 04/17/16 04/17/16 04/17/16 12:17 12:17 21:20 WBC 16.5 H RBC 3.31 L Hgb 8.8 L Hct 26.9 L MCV 81 L MCH 27 L MCHC RDW 15.5 H Plt Count Lymph % (Auto) [place] % (Auto) Lymph # [place] # Baso # Seg Neutrophils % Seg Neuts % (Manual) Lymphocytes % (Manual) 3.0 L Seg Neutrophils # Seg Neutrophils # Man 10.1 H Lymphocytes # (Manual) 0.5 L Monocytes # (Manual) PT INR APTT Heparin Anti-Xa Level 0.14 L POC ABG pH POC ABG pCO2 POC ABG pO2 Sodium Potassium Chloride Carbon Dioxide 21 L BUN 38 H Creatinine 1.8 H D Glucose 131 H POC Glucose Calcium 7.6 L Phosphorus Lactate Dehydrogenase Total Creatine Kinase NT-Pro-B Natriuret Pep Albumin Bwznk-9-Ohqwvvcpz Xncgg-3-Kovziffrs Beta Globulins PEP Interpretation Cholesterol LDL Cholesterol Direct Urine Creatinine 04/17/16 04/17/16 04/18/16 23:38 23:41 00:21 WBC RBC Hgb Hct MCV MCH MCHC RDW Plt Count Lymph % (Auto) [place] % (Auto) Lymph # [place] # Baso # Seg Neutrophils % Seg Neuts % (Manual) Lymphocytes % (Manual) Seg Neutrophils # Seg Neutrophils # Man Lymphocytes # (Manual) Monocytes # (Manual) PT INR APTT Heparin Anti-Xa Level POC ABG pH POC ABG pCO2 POC ABG pO2 Sodium Potassium Chloride Carbon Dioxide BUN Creatinine Glucose POC Glucose < 40 L < 40 L 223 H Calcium Phosphorus Lactate Dehydrogenase Total Creatine Kinase NT-Pro-B Natriuret Pep Albumin Onbvp-9-Suebdbfbe Ohoca-6-Bpusqshqw Beta Globulins PEP Interpretation Cholesterol LDL Cholesterol Direct Urine Creatinine 04/18/16 04/18/16 04/18/16 05:01 05:20 05:20 WBC 17.6 H RBC 3.44 L Hgb 9.1 L Hct 27.8 L MCV 81 L MCH 26 L MCHC RDW 15.5 H Plt Count Lymph % (Auto) 2.7 L [place] % (Auto) 8.3 H Lymph # 0.5 L [place] # 1.5 H Baso # Seg Neutrophils % 88.4 H Seg Neuts % (Manual) Lymphocytes % (Manual) Seg Neutrophils # 15.6 H Seg Neutrophils # Man Lymphocytes # (Manual) Monocytes # (Manual) PT 17.4 H INR 1.43 H APTT Heparin Anti-Xa Level POC ABG pH 7.528 H POC ABG pCO2 27.9 L POC ABG pO2 Sodium Potassium Chloride Carbon Dioxide BUN Creatinine Glucose POC Glucose Calcium Phosphorus Lactate Dehydrogenase Total Creatine Kinase NT-Pro-B Natriuret Pep Albumin Ynxsg-3-Brehvtnla Mfrhg-1-Kvcfmwlul Beta Globulins PEP Interpretation Cholesterol LDL Cholesterol Direct Urine Creatinine 04/18/16 04/18/16 04/18/16 05:20 05:31 06:50 WBC RBC Hgb Hct MCV MCH MCHC RDW Plt Count Lymph % (Auto) [place] % (Auto) Lymph # [place] # Baso # Seg Neutrophils % Seg Neuts % (Manual) Lymphocytes % (Manual) Seg Neutrophils # Seg Neutrophils # Man Lymphocytes # (Manual) Monocytes # (Manual) PT INR APTT Heparin Anti-Xa Level POC ABG pH POC ABG pCO2 POC ABG pO2 Sodium Potassium 3.4 L Chloride Carbon Dioxide 21 L BUN 22 H Creatinine Glucose POC Glucose 61 L 124 H Calcium 8.0 L Phosphorus Lactate Dehydrogenase Total Creatine Kinase NT-Pro-B Natriuret Pep Albumin Ahuqn-0-Hzgkablph Fgvsl-6-Woibvbbhp Beta Globulins PEP Interpretation Cholesterol LDL Cholesterol Direct Urine Creatinine 04/18/16 04/18/16 04/19/16 17:42 22:40 00:31 WBC RBC Hgb Hct MCV MCH MCHC RDW Plt Count Lymph % (Auto) [place] % (Auto) Lymph # [place] # Baso # Seg Neutrophils % Seg Neuts % (Manual) Lymphocytes % (Manual) Seg Neutrophils # Seg Neutrophils # Man Lymphocytes # (Manual) Monocytes # (Manual) PT INR APTT Heparin Anti-Xa Level < 0.10 L POC ABG pH POC ABG pCO2 POC ABG pO2 Sodium Potassium Chloride Carbon Dioxide BUN Creatinine Glucose POC Glucose 159 H 134 H Calcium Phosphorus Lactate Dehydrogenase Total Creatine Kinase NT-Pro-B Natriuret Pep Albumin Atqfh-1-Ejxzjbjsk Mormt-5-Tkumhnjbk Beta Globulins PEP Interpretation Cholesterol LDL Cholesterol Direct Urine Creatinine 04/19/16 04/19/16 04/19/16 04:18 04:18 04:25 WBC 19.0 H RBC 3.58 L Hgb 9.3 L Hct 28.8 L MCV 80 L MCH 26 L MCHC RDW 15.5 H Plt Count Lymph % (Auto) 2.8 L [place] % (Auto) 7.4 H Lymph # 0.5 L [place] # 1.4 H Baso # Seg Neutrophils % 89.4 H Seg Neuts % (Manual) Lymphocytes % (Manual) Seg Neutrophils # 17.0 H Seg Neutrophils # Man Lymphocytes # (Manual) Monocytes # (Manual) PT INR APTT Heparin Anti-Xa Level POC ABG pH 7.527 H POC ABG pCO2 27.1 L POC ABG pO2 Sodium Potassium Chloride Carbon Dioxide BUN 22 H Creatinine Glucose 215 H POC Glucose Calcium 8.0 L Phosphorus Lactate Dehydrogenase Total Creatine Kinase NT-Pro-B Natriuret Pep Albumin Kwvhl-8-Blekxitlw Uzcmz-0-Brofqwmom Beta Globulins PEP Interpretation Cholesterol LDL Cholesterol Direct Urine Creatinine 04/19/16 04/19/16 04/19/16 05:45 08:10 14:08 WBC RBC Hgb Hct MCV MCH MCHC RDW Plt Count Lymph % (Auto) [place] % (Auto) Lymph # [place] # Baso # Seg Neutrophils % Seg Neuts % (Manual) Lymphocytes % (Manual) Seg Neutrophils # Seg Neutrophils # Man Lymphocytes # (Manual) Monocytes # (Manual) PT 22.1 H INR 1.93 H APTT Heparin Anti-Xa Level 0.17 L POC ABG pH POC ABG pCO2 POC ABG pO2 Sodium Potassium Chloride Carbon Dioxide BUN Creatinine Glucose POC Glucose 196 H 318 H Calcium Phosphorus Lactate Dehydrogenase Total Creatine Kinase NT-Pro-B Natriuret Pep Albumin Yivbd-6-Lcmntyluu Tzmfs-3-Hpewiatrn Beta Globulins PEP Interpretation Cholesterol LDL Cholesterol Direct Urine Creatinine 04/19/16 04/20/16 04/20/16 17:27 03:55 03:55 WBC 18.5 H RBC 3.19 L Hgb 8.4 L Hct 25.7 L MCV 80 L MCH 26 L MCHC RDW 15.9 H Plt Count Lymph % (Auto) 4.3 L [place] % (Auto) 10.1 H Lymph # 0.8 L [place] # 1.9 H Baso # Seg Neutrophils % 85.2 H Seg Neuts % (Manual) Lymphocytes % (Manual) Seg Neutrophils # 15.8 H Seg Neutrophils # Man Lymphocytes # (Manual) Monocytes # (Manual) PT 22.0 H INR 1.92 H APTT Heparin Anti-Xa Level 0.14 L POC ABG pH POC ABG pCO2 POC ABG pO2 Sodium Potassium Chloride Carbon Dioxide BUN Creatinine Glucose POC Glucose 230 H Calcium Phosphorus Lactate Dehydrogenase Total Creatine Kinase NT-Pro-B Natriuret Pep Albumin Vywiw-8-Adomdhocf Bxmwy-5-Ikyhqlmgw Beta Globulins PEP Interpretation Cholesterol LDL Cholesterol Direct Urine Creatinine 04/20/16 04/20/16 04/20/16 03:55 04:16 05:52 WBC RBC Hgb Hct MCV MCH MCHC RDW Plt Count Lymph % (Auto) [place] % (Auto) Lymph # [place] # Baso # Seg Neutrophils % Seg Neuts % (Manual) Lymphocytes % (Manual) Seg Neutrophils # Seg Neutrophils # Man Lymphocytes # (Manual) Monocytes # (Manual) PT INR APTT Heparin Anti-Xa Level POC ABG pH 7.474 H POC ABG pCO2 26.5 L POC ABG pO2 Sodium Potassium Chloride Carbon Dioxide 18 L BUN 38 H Creatinine 2.7 H D Glucose 159 H POC Glucose 214 H Calcium 8.0 L Phosphorus Lactate Dehydrogenase Total Creatine Kinase NT-Pro-B Natriuret Pep Albumin Seohs-8-Vjpcohtrc Wqage-0-Mfyqoiokb Beta Globulins PEP Interpretation Cholesterol LDL Cholesterol Direct Urine Creatinine 04/20/16 04/20/16 04/20/16 10:32 11:27 11:50 WBC RBC Hgb Hct MCV MCH MCHC RDW Plt Count Lymph % (Auto) [place] % (Auto) Lymph # [place] # Baso # Seg Neutrophils % Seg Neuts % (Manual) Lymphocytes % (Manual) Seg Neutrophils # Seg Neutrophils # Man Lymphocytes # (Manual) Monocytes # (Manual) PT INR APTT Heparin Anti-Xa Level POC ABG pH POC ABG pCO2 POC ABG pO2 Sodium Potassium Chloride Carbon Dioxide 20 L BUN 45 H Creatinine 3.0 H Glucose 215 H POC Glucose 248 H Calcium 8.0 L Phosphorus Lactate Dehydrogenase Total Creatine Kinase NT-Pro-B Natriuret Pep Albumin Idrlo-3-Xhnoltrjn Gwfjf-8-Cnqitzkqa Beta Globulins PEP Interpretation Cholesterol LDL Cholesterol Direct Urine Creatinine 85.5 H 04/20/16 04/21/16 04/21/16 16:59 00:13 04:29 WBC RBC Hgb Hct MCV MCH MCHC RDW Plt Count Lymph % (Auto) [place] % (Auto) Lymph # [place] # Baso # Seg Neutrophils % Seg Neuts % (Manual) Lymphocytes % (Manual) Seg Neutrophils # Seg Neutrophils # Man Lymphocytes # (Manual) Monocytes # (Manual) PT 18.1 H INR 1.50 H APTT Heparin Anti-Xa Level 0.10 L POC ABG pH POC ABG pCO2 POC ABG pO2 Sodium Potassium Chloride Carbon Dioxide BUN Creatinine Glucose POC Glucose 312 H 287 H Calcium Phosphorus Lactate Dehydrogenase Total Creatine Kinase NT-Pro-B Natriuret Pep Albumin Vwvid-6-Kzpbzbdia Mkxtn-2-Rchuchauh Beta Globulins PEP Interpretation Cholesterol LDL Cholesterol Direct Urine Creatinine 04/21/16 04/21/16 04/21/16 04:29 04:29 04:55 WBC 15.4 H RBC 3.24 L Hgb 8.4 L Hct 25.6 L MCV 79 L MCH 26 L MCHC RDW 16.1 H Plt Count Lymph % (Auto) 6.8 L [place] % (Auto) 12.9 H Lymph # 1.0 L [place] # 2.0 H Baso # Seg Neutrophils % 79.8 H Seg Neuts % (Manual) Lymphocytes % (Manual) Seg Neutrophils # 12.3 H Seg Neutrophils # Man Lymphocytes # (Manual) Monocytes # (Manual) PT INR APTT Heparin Anti-Xa Level POC ABG pH 7.512 H POC ABG pCO2 25.4 L POC ABG pO2 Sodium 135 L Potassium Chloride Carbon Dioxide 18 L BUN 57 H Creatinine 3.9 H Glucose 202 H POC Glucose Calcium 8.0 L Phosphorus Lactate Dehydrogenase Total Creatine Kinase NT-Pro-B Natriuret Pep Albumin Ljzmj-6-Xfrruiqxf Etdhs-1-Mhvzxkffd Beta Globulins PEP Interpretation Cholesterol LDL Cholesterol Direct Urine Creatinine 04/21/16 04/21/16 04/21/16 05:20 12:08 12:16 WBC RBC Hgb Hct MCV MCH MCHC RDW Plt Count Lymph % (Auto) [place] % (Auto) Lymph # [place] # Baso # Seg Neutrophils % Seg Neuts % (Manual) Lymphocytes % (Manual) Seg Neutrophils # Seg Neutrophils # Man Lymphocytes # (Manual) Monocytes # (Manual) PT INR APTT Heparin Anti-Xa Level 0.16 L POC ABG pH POC ABG pCO2 POC ABG pO2 Sodium Potassium Chloride Carbon Dioxide BUN Creatinine Glucose POC Glucose 203 H 221 H Calcium Phosphorus Lactate Dehydrogenase Total Creatine Kinase NT-Pro-B Natriuret Pep Albumin Rnimw-5-Fumdhakbf Iqrys-7-Ltbodpqum Beta Globulins PEP Interpretation Cholesterol LDL Cholesterol Direct Urine Creatinine 04/21/16 04/22/16 04/22/16 17:22 05:01 05:20 WBC RBC Hgb Hct MCV MCH MCHC RDW Plt Count Lymph % (Auto) [place] % (Auto) Lymph # [place] # Baso # Seg Neutrophils % Seg Neuts % (Manual) Lymphocytes % (Manual) Seg Neutrophils # Seg Neutrophils # Man Lymphocytes # (Manual) Monocytes # (Manual) PT 17.5 H INR 1.44 H APTT Heparin Anti-Xa Level POC ABG pH 7.460 H POC ABG pCO2 27.9 L POC ABG pO2 Sodium Potassium Chloride Carbon Dioxide BUN Creatinine Glucose POC Glucose 189 H Calcium Phosphorus Lactate Dehydrogenase Total Creatine Kinase NT-Pro-B Natriuret Pep Albumin Upoqr-3-Nuraiupps Jgvmk-7-Slldpztmq Beta Globulins PEP Interpretation Cholesterol LDL Cholesterol Direct Urine Creatinine 04/22/16 04/22/16 04/22/16 05:43 06:40 08:08 WBC RBC Hgb Hct MCV MCH MCHC RDW Plt Count Lymph % (Auto) [place] % (Auto) Lymph # [place] # Baso # Seg Neutrophils % Seg Neuts % (Manual) Lymphocytes % (Manual) Seg Neutrophils # Seg Neutrophils # Man Lymphocytes # (Manual) Monocytes # (Manual) PT INR APTT Heparin Anti-Xa Level POC ABG pH POC ABG pCO2 POC ABG pO2 Sodium Potassium Chloride Carbon Dioxide BUN Creatinine Glucose POC Glucose 56 L 136 H 134 H Calcium Phosphorus Lactate Dehydrogenase Total Creatine Kinase NT-Pro-B Natriuret Pep Albumin Ocqci-1-Paqpuacbv Ghpye-4-Axlbprlig Beta Globulins PEP Interpretation Cholesterol LDL Cholesterol Direct Urine Creatinine 04/22/16 04/22/16 11:18 12:10 WBC RBC Hgb Hct MCV MCH MCHC RDW Plt Count Lymph % (Auto) [place] % (Auto) Lymph # [place] # Baso # Seg Neutrophils % Seg Neuts % (Manual) Lymphocytes % (Manual) Seg Neutrophils # Seg Neutrophils # Man Lymphocytes # (Manual) Monocytes # (Manual) PT INR APTT Heparin Anti-Xa Level 0.12 L POC ABG pH POC ABG pCO2 POC ABG pO2 Sodium Potassium Chloride Carbon Dioxide BUN Creatinine Glucose POC Glucose 142 H Calcium Phosphorus Lactate Dehydrogenase Total Creatine Kinase NT-Pro-B Natriuret Pep Albumin Fyhro-3-Ehouhxazs Rnmaz-6-Kqsusjlzu Beta Globulins PEP Interpretation Cholesterol LDL Cholesterol Direct Urine Creatinine Chest x-ray: report reviewed
--- NOTE | 2016-04-22 17:08 | Progress Note ---
Assessment and Plan - Patient Problems (1) Altered mental status Current Visit: Yes Status: Acute Qualifiers: Altered mental status type: unspecified Qualified Code(s): R41.82 - Altered mental status, unspecified (2) CHF (congestive heart failure), NYHA class III Current Visit: Yes Status: Acute (3) CVA (cerebral vascular accident) Current Visit: Yes Status: Acute (4) DVT prophylaxis Current Visit: Yes Status: Acute Subjective Date of service: 04/22/16 Principal diagnosis: CVA, acute respiratory failure Objective - Constitutional Vitals: Vital Signs - 12hr 04/22/16 04/22/16 04/22/16 05:30 05:33 06:00 Temperature Pulse Rate 83 78 78 Pulse Rate [ Apical] Pulse Rate [ Bilateral Throughout] Pulse Rate [ From Monitor] Respiratory 22 15 23 Rate Respiratory Rate [Bilateral Throughout] Respiratory Rate [ Generalized] Blood Pressure 125/68 125/68 121/61 O2 Sat by Pulse 100 100 100 Oximetry 04/22/16 04/22/16 04/22/16 06:30 06:48 07:00 Temperature Pulse Rate 81 87 Pulse Rate [ Apical] Pulse Rate [ Bilateral Throughout] Pulse Rate [ From Monitor] Respiratory 21 19 Rate Respiratory Rate [Bilateral Throughout] Respiratory Rate [ Generalized] Blood Pressure 121/61 129/69 129/69 O2 Sat by Pulse 100 100 100 Oximetry 04/22/16 04/22/16 04/22/16 07:30 07:34 08:00 Temperature 99.0 F Pulse Rate 80 66 Pulse Rate [ 64 Apical] Pulse Rate [ 86 Bilateral Throughout] Pulse Rate [ 66 From Monitor] Respiratory 21 36 H Rate Respiratory 20 Rate [Bilateral Throughout] Respiratory Rate [ Generalized] Blood Pressure 131/71 112/66 O2 Sat by Pulse 100 100 Oximetry 04/22/16 04/22/16 04/22/16 08:17 08:30 09:00 Temperature Pulse Rate 77 74 69 Pulse Rate [ Apical] Pulse Rate [ Bilateral Throughout] Pulse Rate [ From Monitor] Respiratory 22 21 Rate Respiratory Rate [Bilateral Throughout] Respiratory Rate [ Generalized] Blood Pressure 144/83 117/67 116/66 O2 Sat by Pulse 99 100 Oximetry 04/22/16 04/22/16 04/22/16 09:18 09:25 09:30 Temperature Pulse Rate 68 64 66 Pulse Rate [ Apical] Pulse Rate [ Bilateral Throughout] Pulse Rate [ From Monitor] Respiratory 17 Rate Respiratory Rate [Bilateral Throughout] Respiratory Rate [ Generalized] Blood Pressure 116/66 116/66 112/66 O2 Sat by Pulse 100 Oximetry 04/22/16 04/22/16 04/22/16 09:42 10:00 10:30 Temperature Pulse Rate 66 68 68 Pulse Rate [ Apical] Pulse Rate [ Bilateral Throughout] Pulse Rate [ From Monitor] Respiratory 17 18 14 Rate Respiratory Rate [Bilateral Throughout] Respiratory 19 Rate [ Generalized] Blood Pressure 112/66 103/61 103/67 O2 Sat by Pulse 100 100 100 Oximetry 04/22/16 04/22/16 04/22/16 10:49 11:00 11:30 Temperature Pulse Rate 64 75 75 Pulse Rate [ Apical] Pulse Rate [ Bilateral Throughout] Pulse Rate [ From Monitor] Respiratory 17 23 Rate Respiratory Rate [Bilateral Throughout] Respiratory Rate [ Generalized] Blood Pressure 103/67 109/73 124/70 O2 Sat by Pulse 100 100 100 Oximetry 04/22/16 04/22/16 04/22/16 11:41 12:00 12:30 Temperature 98.6 F Pulse Rate 75 69 Pulse Rate [ 67 Apical] Pulse Rate [ Bilateral Throughout] Pulse Rate [ 67 From Monitor] Respiratory 22 16 Rate Respiratory Rate [Bilateral Throughout] Respiratory Rate [ Generalized] Blood Pressure 129/75 125/69 O2 Sat by Pulse 100 100 Oximetry 04/22/16 04/22/16 04/22/16 13:00 13:30 13:48 Temperature Pulse Rate 69 66 69 Pulse Rate [ Apical] Pulse Rate [ Bilateral Throughout] Pulse Rate [ From Monitor] Respiratory 17 18 18 Rate Respiratory Rate [Bilateral Throughout] Respiratory Rate [ Generalized] Blood Pressure 111/63 118/65 118/65 O2 Sat by Pulse 100 100 100 Oximetry 04/22/16 04/22/16 04/22/16 13:49 14:00 14:20 Temperature Pulse Rate 68 70 67 Pulse Rate [ Apical] Pulse Rate [ Bilateral Throughout] Pulse Rate [ From Monitor] Respiratory 19 20 Rate Respiratory Rate [Bilateral Throughout] Respiratory Rate [ Generalized] Blood Pressure 118/65 120/66 120/66 O2 Sat by Pulse 100 100 Oximetry 04/22/16 04/22/16 04/22/16 14:30 14:32 15:00 Temperature Pulse Rate 84 81 87 Pulse Rate [ Apical] Pulse Rate [ Bilateral Throughout] Pulse Rate [ From Monitor] Respiratory 31 H 36 H Rate Respiratory Rate [Bilateral Throughout] Respiratory Rate [ Generalized] Blood Pressure 129/78 129/78 128/69 O2 Sat by Pulse 99 100 100 Oximetry 04/22/16 04/22/16 04/22/16 15:26 15:27 15:30 Temperature Pulse Rate 85 84 Pulse Rate [ Apical] Pulse Rate [ 80 Bilateral Throughout] Pulse Rate [ From Monitor] Respiratory 28 H Rate Respiratory 20 Rate [Bilateral Throughout] Respiratory Rate [ Generalized] Blood Pressure 128/69 124/70 O2 Sat by Pulse 100 100 Oximetry 04/22/16 04/22/16 04/22/16 15:42 16:00 16:12 Temperature 99.1 F Pulse Rate 79 80 83 Pulse Rate [ 67 Apical] Pulse Rate [ Bilateral Throughout] Pulse Rate [ 67 From Monitor] Respiratory 20 20 21 Rate Respiratory Rate [Bilateral Throughout] Respiratory Rate [ Generalized] Blood Pressure 128/69 110/60 110/60 O2 Sat by Pulse 100 100 100 Oximetry 04/22/16 04/22/16 16:30 17:00 Temperature Pulse Rate 84 86 Pulse Rate [ Apical] Pulse Rate [ Bilateral Throughout] Pulse Rate [ From Monitor] Respiratory 25 H 23 Rate Respiratory Rate [Bilateral Throughout] Respiratory Rate [ Generalized] Blood Pressure 111/62 130/70 O2 Sat by Pulse 100 100 Oximetry General appearance: Present: no acute distress, well-nourished - EENT Eyes: PERRL, EOM intact ENT: hearing intact, clear oral mucosa Ears: bilateral: normal - Neck Neck: supple, normal ROM - Respiratory Respiratory effort: normal Respiratory: bilateral: CTA - Breasts Breasts: normal - Cardiovascular Rhythm: regular Heart Sounds: Present: S1 & S2. Absent: gallop, rub Extremities: pulses intact, No edema, normal color, Full ROM - Gastrointestinal General gastrointestinal: Present: soft, non-tender, non-distended, normal bowel sounds - Genitourinary Male genitourinary: normal - Integumentary Integumentary: clear, warm, dry - Musculoskeletal Musculoskeletal: 1, strength equal bilaterally - Neurologic Neurologic: moves all extremities - Psychiatric Psychiatric: memory intact, appropriate mood/affect, intact judgment & insight - Labs CBC & Chem 7: 04/21/16 04:29 04/21/16 04:29 Labs: Abnormal lab results 04/21/16 04/21/16 04/22/16 Range/Units 12:08 17:22 05:01 PT (12.2-14.9) Sec. INR (0.87-1.13) Heparin Anti-Xa Level (0.3-0.7) U.I./ml POC ABG pH 7.460 H (7.35-7.45) POC ABG pCO2 27.9 L (35-45) POC Glucose 221 H 189 H (70-105) 04/22/16 04/22/16 04/22/16 Range/Units 05:20 05:43 06:40 PT 17.5 H (12.2-14.9) Sec. INR 1.44 H (0.87-1.13) Heparin Anti-Xa Level (0.3-0.7) U.I./ml POC ABG pH (7.35-7.45) POC ABG pCO2 (35-45) POC Glucose 56 L 136 H (70-105) 04/22/16 04/22/16 04/22/16 Range/Units 08:08 11:18 12:10 PT (12.2-14.9) Sec. INR (0.87-1.13) Heparin Anti-Xa Level 0.12 L (0.3-0.7) U.I./ml POC ABG pH (7.35-7.45) POC ABG pCO2 (35-45) POC Glucose 134 H 142 H (70-105)
[2016-04-23] MEDS: NOVOLOG SUB-Q SCH ×4 (00:11→18:11)
[2016-04-23] MEDS: HEPARIN/ 0.45% NACL-25,000 UNIT/500 ML 500 ML IV SCH (00:36)
[2016-04-23] MEDS: APRESOLINE IV PRN (00:38)
[2016-04-23] MEDS: DUONEB 0.5 MG-3 MG/3 ML SOLN IH SCH ×4 (01:29→19:57)
[2016-04-23 06:15] LABS: ISTAT Base Excess -2; ISTAT HCO3 22.3; ISTAT PCO2 32.6 (35-45); ISTAT PH 7.444 (7.35-7.45); ISTAT PO2 122 (80-105); ISTAT SO2 99; ISTAT TCO2 23
[2016-04-23] MEDS: NORMODYNE PO SCH ×3 (08:31→20:30)
--- NOTE | 2016-04-23 08:34 | Progress Note ---
Assessment and Plan A/P: 1. The patient's current INR is 1.44. We will schedule the tracheostomy for early next week and continue to try to contact the for consent. Subjective Date of service: 04/23/16 Objective Vital Signs - 12hr 04/22/16 04/22/16 04/22/16 21:00 21:12 21:30 Temperature Pulse Rate 95 H 90 94 H Pulse Rate [ Apical] Pulse Rate [ Bilateral Throughout] Pulse Rate [ From Monitor] Respiratory 25 H 22 26 H Rate Respiratory Rate [Bilateral Throughout] Respiratory Rate [ Generalized] Blood Pressure 143/76 143/76 133/70 O2 Sat by Pulse 100 100 100 Oximetry 04/22/16 04/22/16 04/22/16 22:00 22:08 22:30 Temperature Pulse Rate 99 H 92 H 92 H Pulse Rate [ Apical] Pulse Rate [ Bilateral Throughout] Pulse Rate [ From Monitor] Respiratory 32 H 23 Rate Respiratory Rate [Bilateral Throughout] Respiratory 19 Rate [ Generalized] Blood Pressure 137/74 137/74 136/75 O2 Sat by Pulse 100 100 Oximetry 04/22/16 04/22/16 04/23/16 23:00 23:30 00:00 Temperature 99 F Pulse Rate 88 88 93 H Pulse Rate [ Apical] Pulse Rate [ Bilateral Throughout] Pulse Rate [ From Monitor] Respiratory 25 H 24 15 Rate Respiratory Rate [Bilateral Throughout] Respiratory Rate [ Generalized] Blood Pressure 140/71 138/73 138/73 O2 Sat by Pulse 100 100 100 Oximetry 04/23/16 04/23/16 04/23/16 00:30 00:38 00:40 Temperature Pulse Rate 91 H 91 H 90 Pulse Rate [ Apical] Pulse Rate [ Bilateral Throughout] Pulse Rate [ From Monitor] Respiratory 25 H Rate Respiratory Rate [Bilateral Throughout] Respiratory Rate [ Generalized] Blood Pressure 141/75 166/86 141/74 O2 Sat by Pulse 100 100 Oximetry 04/23/16 04/23/16 04/23/16 00:42 01:00 01:08 Temperature Pulse Rate 87 90 89 Pulse Rate [ Apical] Pulse Rate [ Bilateral Throughout] Pulse Rate [ From Monitor] Respiratory 21 25 H 23 Rate Respiratory Rate [Bilateral Throughout] Respiratory Rate [ Generalized] Blood Pressure 143/76 141/74 141/74 O2 Sat by Pulse 100 100 100 Oximetry 04/23/16 04/23/16 04/23/16 01:29 01:30 01:38 Temperature Pulse Rate 100 H Pulse Rate [ Apical] Pulse Rate [ 88 90 Bilateral Throughout] Pulse Rate [ From Monitor] Respiratory 32 H Rate Respiratory 24 24 Rate [Bilateral Throughout] Respiratory Rate [ Generalized] Blood Pressure 132/78 O2 Sat by Pulse 100 Oximetry 04/23/16 04/23/16 04/23/16 02:00 02:30 02:42 Temperature Pulse Rate 89 87 85 Pulse Rate [ Apical] Pulse Rate [ Bilateral Throughout] Pulse Rate [ From Monitor] Respiratory 25 H 23 23 Rate Respiratory Rate [Bilateral Throughout] Respiratory Rate [ Generalized] Blood Pressure 138/75 138/72 138/72 O2 Sat by Pulse 100 100 100 Oximetry 04/23/16 04/23/16 04/23/16 02:44 02:46 03:00 Temperature Pulse Rate 89 89 88 Pulse Rate [ Apical] Pulse Rate [ Bilateral Throughout] Pulse Rate [ From Monitor] Respiratory 25 H 25 H 19 Rate Respiratory Rate [Bilateral Throughout] Respiratory Rate [ Generalized] Blood Pressure 138/72 138/72 138/72 O2 Sat by Pulse 100 100 100 Oximetry 04/23/16 04/23/16 04/23/16 03:30 04:00 04:30 Temperature 98.6 F Pulse Rate 86 90 90 Pulse Rate [ Apical] Pulse Rate [ Bilateral Throughout] Pulse Rate [ From Monitor] Respiratory 25 H 24 19 Rate Respiratory Rate [Bilateral Throughout] Respiratory Rate [ Generalized] Blood Pressure 143/75 154/80 162/85 O2 Sat by Pulse 100 100 100 Oximetry 04/23/16 04/23/16 04/23/16 04:49 04:50 05:00 Temperature Pulse Rate 91 H 91 H 92 H Pulse Rate [ Apical] Pulse Rate [ Bilateral Throughout] Pulse Rate [ From Monitor] Respiratory 22 25 H Rate Respiratory Rate [Bilateral Throughout] Respiratory Rate [ Generalized] Blood Pressure 162/85 162/85 163/77 O2 Sat by Pulse 100 100 100 Oximetry 04/23/16 04/23/16 04/23/16 05:02 05:30 05:44 Temperature Pulse Rate 95 H 92 H 91 H Pulse Rate [ Apical] Pulse Rate [ Bilateral Throughout] Pulse Rate [ From Monitor] Respiratory 16 25 H 25 H Rate Respiratory Rate [Bilateral Throughout] Respiratory Rate [ Generalized] Blood Pressure 163/77 155/79 155/79 O2 Sat by Pulse 100 100 100 Oximetry 04/23/16 04/23/16 04/23/16 06:00 06:01 06:30 Temperature Pulse Rate 90 90 90 Pulse Rate [ Apical] Pulse Rate [ Bilateral Throughout] Pulse Rate [ From Monitor] Respiratory 24 23 25 H Rate Respiratory Rate [Bilateral Throughout] Respiratory Rate [ Generalized] Blood Pressure 157/74 157/74 167/75 O2 Sat by Pulse 100 100 100 Oximetry 04/23/16 04/23/16 04/23/16 07:00 07:30 07:56 Temperature Pulse Rate 101 H 102 H Pulse Rate [ Apical] Pulse Rate [ 98 H Bilateral Throughout] Pulse Rate [ From Monitor] Respiratory 28 H 27 H Rate Respiratory 28 H Rate [Bilateral Throughout] Respiratory Rate [ Generalized] Blood Pressure 142/70 133/69 O2 Sat by Pulse 100 100 Oximetry 04/23/16 04/23/16 04/23/16 07:57 08:00 08:11 Temperature 100.3 F H Pulse Rate 111 H 99 H Pulse Rate [ Apical] Pulse Rate [ Bilateral Throughout] Pulse Rate [ From Monitor] Respiratory 25 H Rate Respiratory Rate [Bilateral Throughout] Respiratory Rate [ Generalized] Blood Pressure 144/75 144/75 O2 Sat by Pulse 99 99 Oximetry 04/23/16 04/23/16 08:20 08:31 Temperature Pulse Rate 97 H Pulse Rate [ 100 H Apical] Pulse Rate [ Bilateral Throughout] Pulse Rate [ 100 H From Monitor] Respiratory Rate Respiratory Rate [Bilateral Throughout] Respiratory Rate [ Generalized] Blood Pressure 144/75 O2 Sat by Pulse 99 Oximetry - Neck no masses, trachea midline - Labs 04/21/16 04:29 04/21/16 04:29
[2016-04-23 09:06] LABS: Anion Gap 17 mmol/L; Blood Urea Nitrogen 23 mg/dL (9-20); Calcium 8.2 mg/dL (8.4-10.2); Carbon Dioxide 21 mmol/L (22-30); Chloride 109.5 mmol/L (98-107); Glucose 227 mg/dL (75-100); Potassium 3.6 mmol/L (3.6-5.0); Sodium 144 mmol/L (137-145)
--- NOTE | 2016-04-23 09:17 | XRay Report ---
PORTABLE CHEST: INDICATION: Follow-up respiratory failure. COMPARISON: Yesterday. FINDINGS: Portable, frontal chest radiograph, 2:19 AM, 04/23/2016 demonstrates improved bibasilar aeration with now clear lungs. No significant pleural effusions or CHF. Lung markings again slightly crowded centrally. Stable cardiomediastinal silhouette, aortic knob calcifications, sternotomy wires, prosthetic heart valve, endotracheal tube, EKG leads and osseous structures. A PEG tube also partially imaged. Right upper extremity PICC tip again projects in the right axilla. CONCLUSION: No acute chest process. Stable supporting devices, including right upper extremity PICC tip in the right axilla. Thank you for the opportunity to participate in this patient's care.
[2016-04-23] MEDS: CORDARONE PO SCH (09:28)
[2016-04-23] MEDS: ZESTRIL PO SCH ×2 (09:28→22:49)
[2016-04-23] MEDS: NORVASC PO SCH (09:28)
[2016-04-23] MEDS: KEPPRA PO SCH ×2 (09:28→22:07)
[2016-04-23] MEDS: LEVEMIR SUB-Q SCH (09:29)
[2016-04-23] MEDS: PEPCID PO SCH ×2 (09:29→22:08)
[2016-04-23] MEDS: BABY ASPIRIN PO SCH (09:29)
[2016-04-23 11:03] LABS: INR 1.28 (0.87-1.13)
--- NOTE | 2016-04-23 11:29 | Progress Note ---
Assessment and Plan Acute respiratory failure. Currently on ventilator support, pending tracheostomy. No fever. Tidal volume adjusted down Stroke.See MRI. AMS. No change at this point HTN Elevated INR. Discussed yesterday with Dr. Cervantes. The patient to get vitamin K today in order to proceed with tracheotomy. This scheduled for next week according to Dr. Andrade note. Recommendations Vitamin K therapy. Monitor respiratory status tracheotomy Reassess for SVT, weaning status after tracheotomy completed Discussed in detail with RT, nursing staff. No family available at the bedside. CC time 31 min of [id number]-zg-wdko interaction with the patient and coordination of care Subjective Date of service: 04/23/16 Principal diagnosis: CVA, acute respiratory failure Interval history: Intubated, nonverbal Objective Vital Signs - 12hr 04/22/16 04/23/16 04/23/16 23:30 00:00 00:30 Temperature 99 F Pulse Rate 88 93 H 91 H Pulse Rate [ Apical] Pulse Rate [ Bilateral Throughout] Pulse Rate [ From Monitor] Respiratory 24 15 25 H Rate Respiratory Rate [Bilateral Throughout] Blood Pressure 138/73 138/73 141/75 O2 Sat by Pulse 100 100 100 Oximetry 04/23/16 04/23/16 04/23/16 00:38 00:40 00:42 Temperature Pulse Rate 91 H 90 87 Pulse Rate [ Apical] Pulse Rate [ Bilateral Throughout] Pulse Rate [ From Monitor] Respiratory 21 Rate Respiratory Rate [Bilateral Throughout] Blood Pressure 166/86 141/74 143/76 O2 Sat by Pulse 100 100 Oximetry 04/23/16 04/23/16 04/23/16 01:00 01:08 01:29 Temperature Pulse Rate 90 89 Pulse Rate [ Apical] Pulse Rate [ 88 Bilateral Throughout] Pulse Rate [ From Monitor] Respiratory 25 H 23 Rate Respiratory 24 Rate [Bilateral Throughout] Blood Pressure 141/74 141/74 O2 Sat by Pulse 100 100 Oximetry 04/23/16 04/23/16 04/23/16 01:30 01:38 02:00 Temperature Pulse Rate 100 H 89 Pulse Rate [ Apical] Pulse Rate [ 90 Bilateral Throughout] Pulse Rate [ From Monitor] Respiratory 32 H 25 H Rate Respiratory 24 Rate [Bilateral Throughout] Blood Pressure 132/78 138/75 O2 Sat by Pulse 100 100 Oximetry 04/23/16 04/23/16 04/23/16 02:30 02:42 02:44 Temperature Pulse Rate 87 85 89 Pulse Rate [ Apical] Pulse Rate [ Bilateral Throughout] Pulse Rate [ From Monitor] Respiratory 23 23 25 H Rate Respiratory Rate [Bilateral Throughout] Blood Pressure 138/72 138/72 138/72 O2 Sat by Pulse 100 100 100 Oximetry 04/23/16 04/23/16 04/23/16 02:46 03:00 03:30 Temperature Pulse Rate 89 88 86 Pulse Rate [ Apical] Pulse Rate [ Bilateral Throughout] Pulse Rate [ From Monitor] Respiratory 25 H 19 25 H Rate Respiratory Rate [Bilateral Throughout] Blood Pressure 138/72 138/72 143/75 O2 Sat by Pulse 100 100 100 Oximetry 04/23/16 04/23/16 04/23/16 04:00 04:30 04:49 Temperature 98.6 F Pulse Rate 90 90 91 H Pulse Rate [ Apical] Pulse Rate [ Bilateral Throughout] Pulse Rate [ From Monitor] Respiratory 24 19 Rate Respiratory Rate [Bilateral Throughout] Blood Pressure 154/80 162/85 162/85 O2 Sat by Pulse 100 100 100 Oximetry 04/23/16 04/23/16 04/23/16 04:50 05:00 05:02 Temperature Pulse Rate 91 H 92 H 95 H Pulse Rate [ Apical] Pulse Rate [ Bilateral Throughout] Pulse Rate [ From Monitor] Respiratory 22 25 H 16 Rate Respiratory Rate [Bilateral Throughout] Blood Pressure 162/85 163/77 163/77 O2 Sat by Pulse 100 100 100 Oximetry 04/23/16 04/23/16 04/23/16 05:30 05:44 06:00 Temperature Pulse Rate 92 H 91 H 90 Pulse Rate [ Apical] Pulse Rate [ Bilateral Throughout] Pulse Rate [ From Monitor] Respiratory 25 H 25 H 24 Rate Respiratory Rate [Bilateral Throughout] Blood Pressure 155/79 155/79 157/74 O2 Sat by Pulse 100 100 100 Oximetry 04/23/16 04/23/16 04/23/16 06:01 06:30 07:00 Temperature Pulse Rate 90 90 101 H Pulse Rate [ Apical] Pulse Rate [ Bilateral Throughout] Pulse Rate [ From Monitor] Respiratory 23 25 H 28 H Rate Respiratory Rate [Bilateral Throughout] Blood Pressure 157/74 167/75 142/70 O2 Sat by Pulse 100 100 100 Oximetry 04/23/16 04/23/16 04/23/16 07:30 07:56 07:57 Temperature Pulse Rate 102 H 111 H Pulse Rate [ Apical] Pulse Rate [ 98 H Bilateral Throughout] Pulse Rate [ From Monitor] Respiratory 27 H Rate Respiratory 28 H Rate [Bilateral Throughout] Blood Pressure 133/69 144/75 O2 Sat by Pulse 100 99 Oximetry 04/23/16 04/23/16 04/23/16 08:00 08:10 08:11 Temperature 100.3 F H Pulse Rate 99 H 121 H Pulse Rate [ Apical] Pulse Rate [ Bilateral Throughout] Pulse Rate [ From Monitor] Respiratory 25 H 31 H Rate Respiratory Rate [Bilateral Throughout] Blood Pressure 144/75 144/75 O2 Sat by Pulse 99 99 Oximetry 04/23/16 04/23/16 04/23/16 08:20 08:30 08:31 Temperature Pulse Rate 97 H 97 H Pulse Rate [ 100 H Apical] Pulse Rate [ Bilateral Throughout] Pulse Rate [ 100 H From Monitor] Respiratory 27 H Rate Respiratory Rate [Bilateral Throughout] Blood Pressure 147/72 144/75 O2 Sat by Pulse 99 99 Oximetry 04/23/16 04/23/16 04/23/16 09:00 09:28 09:30 Temperature Pulse Rate 85 78 77 Pulse Rate [ Apical] Pulse Rate [ Bilateral Throughout] Pulse Rate [ From Monitor] Respiratory 24 22 Rate Respiratory Rate [Bilateral Throughout] Blood Pressure 137/74 137/74 137/74 O2 Sat by Pulse 100 100 Oximetry 04/23/16 04/23/16 04/23/16 09:44 09:50 10:00 Temperature Pulse Rate 84 80 82 Pulse Rate [ Apical] Pulse Rate [ Bilateral Throughout] Pulse Rate [ From Monitor] Respiratory 24 23 25 H Rate Respiratory Rate [Bilateral Throughout] Blood Pressure 114/63 114/63 118/65 O2 Sat by Pulse 100 100 100 Oximetry 04/23/16 04/23/16 04/23/16 10:30 10:58 11:00 Temperature Pulse Rate 78 78 84 Pulse Rate [ Apical] Pulse Rate [ Bilateral Throughout] Pulse Rate [ From Monitor] Respiratory 24 24 24 Rate Respiratory Rate [Bilateral Throughout] Blood Pressure 113/57 118/65 115/67 O2 Sat by Pulse 100 100 100 Oximetry 04/23/16 04/23/16 11:09 11:18 Temperature Pulse Rate 78 77 Pulse Rate [ Apical] Pulse Rate [ Bilateral Throughout] Pulse Rate [ From Monitor] Respiratory Rate Respiratory Rate [Bilateral Throughout] Blood Pressure 115/77 O2 Sat by Pulse 100 Oximetry Constitutional: no acute distress, comatose Eyes: non-icteric ENT: other (orally intubated and sedated) Neck: supple Effort: normal Ascultation: Bilateral: clear, rhonchi (occasional) Percussion: Bilateral: not dull Cardiovascular: regular rate and rhythm, irregular rhythm Gastrointestinal: normoactive bowel sounds, soft, non-tender Extremities: no cyanosis, no edema Neurologic: other (GCS 4) CBC and BMP: 04/21/16 04:29 04/23/16 08:34 ABG, PT/INR, D-dimer: ABG POC ABG pH 7.444 (7.35-7.45) 04/23/16 04:49 POC ABG pCO2 32.6 (35-45) L 04/23/16 04:49 POC ABG pO2 122 (80-105) H 04/23/16 04:49 POC ABG HCO3 22.3 04/23/16 04:49 POC ABG Total CO2 23 04/23/16 04:49 POC ABG O2 Sat 99 04/23/16 04:49 PT/INR, D-dimer PT 15.9 Sec. (12.2-14.9) H 04/23/16 10:45 INR 1.28 (0.87-1.13) H 04/23/16 10:45 Abnormal lab findings: Abnormal Labs 03/24/16 03/24/16 03/24/16 17:58 20:25 23:23 WBC RBC Hgb Hct MCV MCH MCHC RDW Plt Count Lymph % (Auto) Saunders % (Auto) Lymph # Saunders # Baso # Seg Neutrophils % Seg Neuts % (Manual) Lymphocytes % (Manual) Seg Neutrophils # Seg Neutrophils # Man Lymphocytes # (Manual) Monocytes # (Manual) PT INR APTT Heparin Anti-Xa Level POC ABG pH POC ABG pCO2 POC ABG pO2 Sodium 169 H* Potassium 3.5 L Chloride 130.3 H Carbon Dioxide BUN 28 H Creatinine 1.8 H Glucose POC Glucose 112 H Calcium Phosphorus Lactate Dehydrogenase Total Creatine Kinase NT-Pro-B Natriuret Pep Albumin Oqcwt-7-Vbqwzlmqe Wpcfc-5-Hriwbijah Beta Globulins PEP Interpretation Cholesterol 221 H LDL Cholesterol Direct 146 H Urine Creatinine 03/25/16 03/25/16 03/25/16 05:56 05:56 05:56 WBC 21.3 H RBC 6.32 H Hgb 16.7 H Hct 52.7 H MCV 83 L MCH 27 L MCHC RDW Plt Count Lymph % (Auto) Saunders % (Auto) Lymph # Saunders # Baso # Seg Neutrophils % Seg Neuts % (Manual) 91.0 H Lymphocytes % (Manual) 4.0 L Seg Neutrophils # Seg Neutrophils # Man 19.4 H Lymphocytes # (Manual) 0.9 L Monocytes # (Manual) 0.9 H PT INR APTT Heparin Anti-Xa Level POC ABG pH POC ABG pCO2 POC ABG pO2 Sodium 172 H* Potassium 3.5 L Chloride 130.4 H Carbon Dioxide BUN 29 H Creatinine 1.8 H Glucose 187 H POC Glucose Calcium Phosphorus Lactate Dehydrogenase 460 H Total Creatine Kinase NT-Pro-B Natriuret Pep Albumin Ijffh-7-Zcaqdwxxo Nrycu-8-Jprqdwudr Beta Globulins PEP Interpretation Cholesterol LDL Cholesterol Direct Urine Creatinine 03/25/16 03/25/16 03/25/16 07:55 12:19 13:00 WBC RBC Hgb Hct MCV MCH MCHC RDW Plt Count Lymph % (Auto) Saunders % (Auto) Lymph # Saunders # Baso # Seg Neutrophils % Seg Neuts % (Manual) Lymphocytes % (Manual) Seg Neutrophils # Seg Neutrophils # Man Lymphocytes # (Manual) Monocytes # (Manual) PT INR APTT Heparin Anti-Xa Level POC ABG pH POC ABG pCO2 POC ABG pO2 Sodium Potassium Chloride Carbon Dioxide BUN Creatinine Glucose POC Glucose 231 H 314 H Calcium Phosphorus Lactate Dehydrogenase Total Creatine Kinase NT-Pro-B Natriuret Pep Albumin 3.4 L Xjeyy-7-Ugtzlftzr 0.4 H Twgcq-2-Sexwxnaor 1.1 H Beta Globulins 0.6 H PEP Interpretation see below H Cholesterol LDL Cholesterol Direct Urine Creatinine 03/25/16 03/25/16 03/26/16 16:41 22:45 08:32 WBC RBC Hgb Hct MCV MCH MCHC RDW Plt Count Lymph % (Auto) Saunders % (Auto) Lymph # Saunders # Baso # Seg Neutrophils % Seg Neuts % (Manual) Lymphocytes % (Manual) Seg Neutrophils # Seg Neutrophils # Man Lymphocytes # (Manual) Monocytes # (Manual) PT INR APTT Heparin Anti-Xa Level POC ABG pH POC ABG pCO2 POC ABG pO2 Sodium Potassium Chloride Carbon Dioxide BUN Creatinine Glucose POC Glucose 444 H 326 H 360 H Calcium Phosphorus Lactate Dehydrogenase Total Creatine Kinase NT-Pro-B Natriuret Pep Albumin Elooy-4-Nfeyjbofp Gnxit-4-Cuduagzyw Beta Globulins PEP Interpretation Cholesterol LDL Cholesterol Direct Urine Creatinine 03/26/16 03/26/16 03/26/16 12:38 15:33 15:47 WBC RBC Hgb Hct MCV MCH MCHC RDW Plt Count Lymph % (Auto) Saunders % (Auto) Lymph # Saunders # Baso # Seg Neutrophils % Seg Neuts % (Manual) Lymphocytes % (Manual) Seg Neutrophils # Seg Neutrophils # Man Lymphocytes # (Manual) Monocytes # (Manual) PT INR APTT Heparin Anti-Xa Level POC ABG pH 7.511 H POC ABG pCO2 26.5 L POC ABG pO2 70 L Sodium Potassium Chloride Carbon Dioxide BUN Creatinine Glucose POC Glucose 280 H 174 H Calcium Phosphorus Lactate Dehydrogenase Total Creatine Kinase NT-Pro-B Natriuret Pep Albumin Uueie-1-Myjpamqvs Tosxe-5-Plnlqzkdp Beta Globulins PEP Interpretation Cholesterol LDL Cholesterol Direct Urine Creatinine 03/26/16 03/26/16 03/26/16 16:47 16:47 18:51 WBC 14.0 H RBC 5.17 H Hgb Hct MCV MCH 26 L MCHC 31 L RDW Plt Count 139 L Lymph % (Auto) Saunders % (Auto) Lymph # Saunders # Baso # Seg Neutrophils % Seg Neuts % (Manual) Lymphocytes % (Manual) Seg Neutrophils # Seg Neutrophils # Man Lymphocytes # (Manual) Monocytes # (Manual) PT INR APTT Heparin Anti-Xa Level POC ABG pH POC ABG pCO2 33.9 L POC ABG pO2 150 H Sodium 164 H* Potassium 3.4 L Chloride 128.5 H Carbon Dioxide BUN 30 H Creatinine 2.2 H Glucose 121 H POC Glucose Calcium 8.1 L Phosphorus Lactate Dehydrogenase Total Creatine Kinase NT-Pro-B Natriuret Pep Albumin Fuabp-8-Fusordsib Mzdmr-1-Njtljisro Beta Globulins PEP Interpretation Cholesterol LDL Cholesterol Direct Urine Creatinine 03/27/16 03/27/16 03/27/16 02:19 05:47 06:02 WBC RBC Hgb Hct MCV MCH MCHC RDW Plt Count Lymph % (Auto) Saunders % (Auto) Lymph # Saunders # Baso # Seg Neutrophils % Seg Neuts % (Manual) Lymphocytes % (Manual) Seg Neutrophils # Seg Neutrophils # Man Lymphocytes # (Manual) Monocytes # (Manual) PT INR APTT Heparin Anti-Xa Level POC ABG pH POC ABG pCO2 27.3 L 30.3 L POC ABG pO2 50 L 112 H Sodium 158 H Potassium Chloride 126.7 H Carbon Dioxide 20 L BUN 25 H Creatinine 1.7 H Glucose POC Glucose Calcium 7.0 L Phosphorus Lactate Dehydrogenase Total Creatine Kinase NT-Pro-B Natriuret Pep Albumin Lyuav-0-Yspooxony Vpxlk-9-Jsmbooaak Beta Globulins PEP Interpretation Cholesterol LDL Cholesterol Direct Urine Creatinine 03/27/16 03/27/16 03/27/16 07:51 09:20 11:45 WBC 14.2 H RBC Hgb Hct MCV 83 L MCH 27 L MCHC RDW Plt Count 113 L Lymph % (Auto) Saunders % (Auto) Lymph # Saunders # Baso # Seg Neutrophils % Seg Neuts % (Manual) Lymphocytes % (Manual) Seg Neutrophils # Seg Neutrophils # Man Lymphocytes # (Manual) Monocytes # (Manual) PT INR APTT Heparin Anti-Xa Level POC ABG pH POC ABG pCO2 POC ABG pO2 Sodium Potassium Chloride Carbon Dioxide BUN Creatinine Glucose POC Glucose 124 H 241 H Calcium Phosphorus Lactate Dehydrogenase Total Creatine Kinase NT-Pro-B Natriuret Pep Albumin Qpwvd-5-Zkumulire Ezwga-0-Grstohimu Beta Globulins PEP Interpretation Cholesterol LDL Cholesterol Direct Urine Creatinine 03/27/16 03/27/16 03/28/16 16:39 22:03 03:29 WBC RBC Hgb Hct MCV MCH MCHC RDW Plt Count Lymph % (Auto) Saunders % (Auto) Lymph # Saunders # Baso # Seg Neutrophils % Seg Neuts % (Manual) Lymphocytes % (Manual) Seg Neutrophils # Seg Neutrophils # Man Lymphocytes # (Manual) Monocytes # (Manual) PT INR APTT Heparin Anti-Xa Level POC ABG pH POC ABG pCO2 POC ABG pO2 Sodium Potassium Chloride Carbon Dioxide BUN Creatinine Glucose POC Glucose 266 H 167 H 241 H Calcium Phosphorus Lactate Dehydrogenase Total Creatine Kinase NT-Pro-B Natriuret Pep Albumin Pudkq-4-Kbqvqivvb Ujpmb-9-Swxybqsen Beta Globulins PEP Interpretation Cholesterol LDL Cholesterol Direct Urine Creatinine 03/28/16 03/28/16 03/28/16 05:00 05:00 05:00 WBC RBC Hgb Hct MCV 83 L MCH 27 L MCHC RDW Plt Count 106 L Lymph % (Auto) Saunders % (Auto) 10.1 H Lymph # Saunders # 1.0 H Baso # Seg Neutrophils % 75.1 H Seg Neuts % (Manual) Lymphocytes % (Manual) Seg Neutrophils # Seg Neutrophils # Man Lymphocytes # (Manual) Monocytes # (Manual) PT INR APTT Heparin Anti-Xa Level POC ABG pH POC ABG pCO2 POC ABG pO2 Sodium 147 H D Potassium 3.1 L D Chloride 112.3 H Carbon Dioxide 21 L BUN Creatinine Glucose 208 H POC Glucose Calcium 7.0 L Phosphorus 2.2 L Lactate Dehydrogenase Total Creatine Kinase NT-Pro-B Natriuret Pep Albumin Jxdmo-2-Uyfqdjnrv Toycw-3-Dowdpopkl Beta Globulins PEP Interpretation Cholesterol LDL Cholesterol Direct Urine Creatinine 03/28/16 03/28/16 03/28/16 05:14 08:41 10:56 WBC RBC Hgb Hct MCV MCH MCHC RDW Plt Count Lymph % (Auto) Saunders % (Auto) Lymph # Saunders # Baso # Seg Neutrophils % Seg Neuts % (Manual) Lymphocytes % (Manual) Seg Neutrophils # Seg Neutrophils # Man Lymphocytes # (Manual) Monocytes # (Manual) PT INR APTT Heparin Anti-Xa Level POC ABG pH 7.457 H POC ABG pCO2 29.7 L 27.7 L POC ABG pO2 Sodium Potassium Chloride Carbon Dioxide BUN Creatinine Glucose POC Glucose 228 H Calcium Phosphorus Lactate Dehydrogenase Total Creatine Kinase NT-Pro-B Natriuret Pep Albumin Uivkj-0-Wjzqhtpoa Tewab-2-Siujolzlc Beta Globulins PEP Interpretation Cholesterol LDL Cholesterol Direct Urine Creatinine 03/28/16 03/28/16 03/28/16 11:37 13:29 16:22 WBC RBC Hgb Hct MCV MCH MCHC RDW Plt Count Lymph % (Auto) Saunders % (Auto) Lymph # Saunders # Baso # Seg Neutrophils % Seg Neuts % (Manual) Lymphocytes % (Manual) Seg Neutrophils # Seg Neutrophils # Man Lymphocytes # (Manual) Monocytes # (Manual) PT INR APTT Heparin Anti-Xa Level POC ABG pH POC ABG pCO2 POC ABG pO2 Sodium Potassium Chloride Carbon Dioxide BUN Creatinine Glucose POC Glucose 226 H 200 H Calcium Phosphorus Lactate Dehydrogenase Total Creatine Kinase 356 H NT-Pro-B Natriuret Pep Albumin Qavil-2-Hqitlxlcl Rkojy-0-Njfwlmdnm Beta Globulins PEP Interpretation Cholesterol LDL Cholesterol Direct Urine Creatinine 03/28/16 03/29/16 03/29/16 21:48 04:50 04:50 WBC RBC Hgb 11.5 L Hct 35.3 L MCV 81 L MCH 26 L MCHC RDW Plt Count 97 L Lymph % (Auto) Saunders % (Auto) 11.7 H Lymph # Saunders # 1.1 H Baso # Seg Neutrophils % Seg Neuts % (Manual) Lymphocytes % (Manual) Seg Neutrophils # Seg Neutrophils # Man Lymphocytes # (Manual) Monocytes # (Manual) PT INR APTT Heparin Anti-Xa Level POC ABG pH POC ABG pCO2 POC ABG pO2 Sodium 136 L D Potassium 3.3 L Chloride Carbon Dioxide 20 L BUN Creatinine Glucose 386 H POC Glucose 188 H Calcium 6.8 L Phosphorus 1.6 L D Lactate Dehydrogenase Total Creatine Kinase NT-Pro-B Natriuret Pep Albumin Wstnc-3-Jxjfpswoo Avtia-0-Nunxhfwyi Beta Globulins PEP Interpretation Cholesterol LDL Cholesterol Direct Urine Creatinine 03/29/16 03/29/16 03/29/16 08:10 11:12 16:09 WBC RBC Hgb Hct MCV MCH MCHC RDW Plt Count Lymph % (Auto) Saunders % (Auto) Lymph # Saunders # Baso # Seg Neutrophils % Seg Neuts % (Manual) Lymphocytes % (Manual) Seg Neutrophils # Seg Neutrophils # Man Lymphocytes # (Manual) Monocytes # (Manual) PT INR APTT Heparin Anti-Xa Level POC ABG pH POC ABG pCO2 POC ABG pO2 Sodium Potassium Chloride Carbon Dioxide BUN Creatinine Glucose POC Glucose 230 H 180 H 46 L Calcium Phosphorus Lactate Dehydrogenase Total Creatine Kinase NT-Pro-B Natriuret Pep Albumin Wlyfg-3-Fwgnytqfe Rmaxo-4-Mkaykgddm Beta Globulins PEP Interpretation Cholesterol LDL Cholesterol Direct Urine Creatinine 03/29/16 03/29/16 03/30/16 16:12 18:15 02:53 WBC RBC Hgb Hct MCV MCH MCHC RDW Plt Count Lymph % (Auto) Saunders % (Auto) Lymph # Saunders # Baso # Seg Neutrophils % Seg Neuts % (Manual) Lymphocytes % (Manual) Seg Neutrophils # Seg Neutrophils # Man Lymphocytes # (Manual) Monocytes # (Manual) PT INR APTT Heparin Anti-Xa Level POC ABG pH POC ABG pCO2 POC ABG pO2 Sodium Potassium Chloride Carbon Dioxide BUN Creatinine Glucose POC Glucose 52 L 118 H 130 H Calcium Phosphorus Lactate Dehydrogenase Total Creatine Kinase NT-Pro-B Natriuret Pep Albumin Oqgvj-3-Qvzvozmtr Zmtmc-7-Foouqveyf Beta Globulins PEP Interpretation Cholesterol LDL Cholesterol Direct Urine Creatinine 03/30/16 03/30/16 03/30/16 04:00 04:00 05:29 WBC RBC Hgb Hct MCV 81 L MCH 26 L MCHC RDW Plt Count 116 L Lymph % (Auto) 10.8 L Saunders % (Auto) 13.1 H Lymph # 1.0 L Saunders # 1.3 H Baso # Seg Neutrophils % 74.2 H Seg Neuts % (Manual) Lymphocytes % (Manual) Seg Neutrophils # Seg Neutrophils # Man Lymphocytes # (Manual) Monocytes # (Manual) PT INR APTT Heparin Anti-Xa Level POC ABG pH 7.522 H POC ABG pCO2 22.7 L POC ABG pO2 137 H Sodium 147 H D Potassium Chloride 115.5 H Carbon Dioxide 20 L BUN Creatinine Glucose 116 H POC Glucose Calcium 7.6 L Phosphorus 2.3 L D Lactate Dehydrogenase Total Creatine Kinase NT-Pro-B Natriuret Pep Albumin Lkfih-8-Zebbcbfeq Srbpu-2-Zhozkzzas Beta Globulins PEP Interpretation Cholesterol LDL Cholesterol Direct Urine Creatinine 03/30/16 03/30/16 03/30/16 05:47 08:05 08:59 WBC RBC Hgb Hct MCV MCH MCHC RDW Plt Count Lymph % (Auto) Saunders % (Auto) Lymph # Saunders # Baso # Seg Neutrophils % Seg Neuts % (Manual) Lymphocytes % (Manual) Seg Neutrophils # Seg Neutrophils # Man Lymphocytes # (Manual) Monocytes # (Manual) PT INR APTT Heparin Anti-Xa Level POC ABG pH POC ABG pCO2 26.2 L POC ABG pO2 115 H Sodium Potassium Chloride Carbon Dioxide BUN Creatinine Glucose POC Glucose 138 H 171 H Calcium Phosphorus Lactate Dehydrogenase Total Creatine Kinase NT-Pro-B Natriuret Pep Albumin Sldzz-9-Qqmppfaou Sqlhf-9-Kwshewzcq Beta Globulins PEP Interpretation Cholesterol LDL Cholesterol Direct Urine Creatinine 03/30/16 03/30/16 03/30/16 12:11 12:11 16:39 WBC RBC Hgb Hct MCV MCH MCHC RDW Plt Count Lymph % (Auto) Saunders % (Auto) Lymph # Saunders # Baso # Seg Neutrophils % Seg Neuts % (Manual) Lymphocytes % (Manual) Seg Neutrophils # Seg Neutrophils # Man Lymphocytes # (Manual) Monocytes # (Manual) PT INR APTT Heparin Anti-Xa Level POC ABG pH 7.476 H POC ABG pCO2 29.0 L POC ABG pO2 Sodium Potassium Chloride Carbon Dioxide BUN Creatinine Glucose POC Glucose 142 H 59 L Calcium Phosphorus Lactate Dehydrogenase Total Creatine Kinase NT-Pro-B Natriuret Pep Albumin Xieoy-4-Xozxvgmoo Hzbmy-3-Leewvbbgg Beta Globulins PEP Interpretation Cholesterol LDL Cholesterol Direct Urine Creatinine 03/30/16 03/30/16 03/31/16 18:41 21:59 05:02 WBC RBC Hgb Hct MCV MCH MCHC RDW Plt Count Lymph % (Auto) Saunders % (Auto) Lymph # Saunders # Baso # Seg Neutrophils % Seg Neuts % (Manual) Lymphocytes % (Manual) Seg Neutrophils # Seg Neutrophils # Man Lymphocytes # (Manual) Monocytes # (Manual) PT INR APTT Heparin Anti-Xa Level POC ABG pH 7.519 H POC ABG pCO2 21.8 L POC ABG pO2 142 H Sodium Potassium Chloride Carbon Dioxide BUN Creatinine Glucose POC Glucose 145 H 154 H Calcium Phosphorus Lactate Dehydrogenase Total Creatine Kinase NT-Pro-B Natriuret Pep Albumin Bwikj-6-Downphfwb Ktmcn-6-Vzclqzhke Beta Globulins PEP Interpretation Cholesterol LDL Cholesterol Direct Urine Creatinine 03/31/16 03/31/16 03/31/16 05:15 05:15 05:15 WBC 13.4 H RBC 5.21 H Hgb Hct MCV 81 L MCH 26 L MCHC RDW Plt Count Lymph % (Auto) 9.5 L Saunders % (Auto) 14.0 H Lymph # Saunders # 1.9 H Baso # Seg Neutrophils % 75.0 H Seg Neuts % (Manual) Lymphocytes % (Manual) Seg Neutrophils # 10.1 H Seg Neutrophils # Man Lymphocytes # (Manual) Monocytes # (Manual) PT INR APTT Heparin Anti-Xa Level POC ABG pH POC ABG pCO2 POC ABG pO2 Sodium Potassium Chloride 108.5 H Carbon Dioxide 19 L BUN Creatinine Glucose 188 H POC Glucose Calcium Phosphorus Lactate Dehydrogenase Total Creatine Kinase NT-Pro-B Natriuret Pep 1089 H Albumin Ahwvn-6-Fxkndodzn Rkewr-0-Ljoadfwzg Beta Globulins PEP Interpretation Cholesterol LDL Cholesterol Direct Urine Creatinine 03/31/16 03/31/16 03/31/16 07:23 11:12 15:20 WBC RBC Hgb Hct MCV MCH MCHC RDW Plt Count Lymph % (Auto) Saunders % (Auto) Lymph # Saunders # Baso # Seg Neutrophils % Seg Neuts % (Manual) Lymphocytes % (Manual) Seg Neutrophils # Seg Neutrophils # Man Lymphocytes # (Manual) Monocytes # (Manual) PT INR APTT Heparin Anti-Xa Level POC ABG pH POC ABG pCO2 POC ABG pO2 Sodium Potassium Chloride Carbon Dioxide BUN Creatinine Glucose POC Glucose 233 H 228 H 208 H Calcium Phosphorus Lactate Dehydrogenase Total Creatine Kinase NT-Pro-B Natriuret Pep Albumin Eazym-7-Cfaofsucv Frefe-4-Rbdwlnuqj Beta Globulins PEP Interpretation Cholesterol LDL Cholesterol Direct Urine Creatinine 03/31/16 04/01/16 04/01/16 21:27 04:41 05:35 WBC 12.1 H RBC Hgb Hct MCV 81 L MCH 26 L MCHC RDW Plt Count Lymph % (Auto) 8.5 L Saunders % (Auto) 14.0 H Lymph # 1.0 L Saunders # 1.7 H Baso # Seg Neutrophils % 76.2 H Seg Neuts % (Manual) Lymphocytes % (Manual) Seg Neutrophils # 9.2 H Seg Neutrophils # Man Lymphocytes # (Manual) Monocytes # (Manual) PT INR APTT Heparin Anti-Xa Level POC ABG pH 7.455 H POC ABG pCO2 31.0 L POC ABG pO2 Sodium Potassium Chloride Carbon Dioxide BUN Creatinine Glucose POC Glucose 162 H Calcium Phosphorus Lactate Dehydrogenase Total Creatine Kinase NT-Pro-B Natriuret Pep Albumin Fufiy-8-Qiewbfani Rlblx-8-Xmhytyeaq Beta Globulins PEP Interpretation Cholesterol LDL Cholesterol Direct Urine Creatinine 04/01/16 04/01/16 04/01/16 05:35 08:44 12:49 WBC RBC Hgb Hct MCV MCH MCHC RDW Plt Count Lymph % (Auto) Saunders % (Auto) Lymph # Saunders # Baso # Seg Neutrophils % Seg Neuts % (Manual) Lymphocytes % (Manual) Seg Neutrophils # Seg Neutrophils # Man Lymphocytes # (Manual) Monocytes # (Manual) PT INR APTT Heparin Anti-Xa Level POC ABG pH POC ABG pCO2 POC ABG pO2 Sodium Potassium Chloride Carbon Dioxide BUN Creatinine Glucose 256 H POC Glucose 257 H 279 H Calcium 8.0 L Phosphorus Lactate Dehydrogenase Total Creatine Kinase NT-Pro-B Natriuret Pep 1205 H Albumin Xfdnq-7-Nmnybsjyz Mierg-5-Icwsxtbun Beta Globulins PEP Interpretation Cholesterol LDL Cholesterol Direct Urine Creatinine 04/01/16 04/02/16 04/02/16 18:12 00:42 04:17 WBC RBC Hgb Hct MCV MCH MCHC RDW Plt Count Lymph % (Auto) Saunders % (Auto) Lymph # Saunders # Baso # Seg Neutrophils % Seg Neuts % (Manual) Lymphocytes % (Manual) Seg Neutrophils # Seg Neutrophils # Man Lymphocytes # (Manual) Monocytes # (Manual) PT INR APTT Heparin Anti-Xa Level POC ABG pH 7.582 H POC ABG pCO2 26.8 L POC ABG pO2 Sodium Potassium Chloride Carbon Dioxide BUN Creatinine Glucose POC Glucose 168 H 282 H Calcium Phosphorus Lactate Dehydrogenase Total Creatine Kinase NT-Pro-B Natriuret Pep Albumin Hcblj-0-Zlftbxlyi Fqfby-4-Abfnybjlv Beta Globulins PEP Interpretation Cholesterol LDL Cholesterol Direct Urine Creatinine 04/02/16 04/02/16 04/02/16 05:00 05:00 06:27 WBC 12.4 H RBC Hgb Hct MCV 81 L MCH 26 L MCHC RDW Plt Count Lymph % (Auto) 6.4 L Saunders % (Auto) 13.3 H Lymph # 0.8 L Saunders # 1.7 H Baso # Seg Neutrophils % 79.4 H Seg Neuts % (Manual) Lymphocytes % (Manual) Seg Neutrophils # 9.9 H Seg Neutrophils # Man Lymphocytes # (Manual) Monocytes # (Manual) PT INR APTT Heparin Anti-Xa Level POC ABG pH POC ABG pCO2 POC ABG pO2 Sodium 146 H Potassium Chloride Carbon Dioxide BUN Creatinine Glucose 334 H POC Glucose 317 H Calcium 8.0 L Phosphorus Lactate Dehydrogenase Total Creatine Kinase NT-Pro-B Natriuret Pep Albumin Fcwra-6-Mkqrpxfol Symar-2-Irabkhqkm Beta Globulins PEP Interpretation Cholesterol LDL Cholesterol Direct Urine Creatinine 04/02/16 04/02/16 04/02/16 11:51 13:10 17:24 WBC RBC Hgb Hct MCV MCH MCHC RDW Plt Count Lymph % (Auto) Saunders % (Auto) Lymph # Saunders # Baso # Seg Neutrophils % Seg Neuts % (Manual) Lymphocytes % (Manual) Seg Neutrophils # Seg Neutrophils # Man Lymphocytes # (Manual) Monocytes # (Manual) PT INR APTT Heparin Anti-Xa Level POC ABG pH 7.518 H POC ABG pCO2 POC ABG pO2 Sodium Potassium Chloride Carbon Dioxide BUN Creatinine Glucose POC Glucose 278 H 195 H Calcium Phosphorus Lactate Dehydrogenase Total Creatine Kinase NT-Pro-B Natriuret Pep Albumin Pdoav-1-Ghxdxvpss Qydxk-4-Qnyupajcz Beta Globulins PEP Interpretation Cholesterol LDL Cholesterol Direct Urine Creatinine 04/03/16 04/03/16 04/03/16 00:18 04:10 04:10 WBC 14.3 H RBC Hgb Hct MCV 81 L MCH 26 L MCHC RDW Plt Count Lymph % (Auto) 9.0 L Saunders % (Auto) 10.7 H Lymph # Saunders # 1.5 H Baso # 0.2 H Seg Neutrophils % 78.5 H Seg Neuts % (Manual) Lymphocytes % (Manual) Seg Neutrophils # 11.3 H Seg Neutrophils # Man Lymphocytes # (Manual) Monocytes # (Manual) PT INR APTT Heparin Anti-Xa Level POC ABG pH POC ABG pCO2 POC ABG pO2 Sodium 148 H Potassium Chloride 108.1 H Carbon Dioxide BUN 21 H Creatinine Glucose 227 H POC Glucose 144 H Calcium 8.2 L Phosphorus Lactate Dehydrogenase Total Creatine Kinase NT-Pro-B Natriuret Pep Albumin Yxgtf-9-Xvwifgmwn Powzz-1-Rldqcdvya Beta Globulins PEP Interpretation Cholesterol LDL Cholesterol Direct Urine Creatinine 04/03/16 04/03/16 04/04/16 11:14 17:10 04:00 WBC 14.5 H RBC Hgb Hct MCV 81 L MCH 26 L MCHC RDW Plt Count Lymph % (Auto) 7.2 L Saunders % (Auto) 7.6 H Lymph # 1.0 L Saunders # 1.1 H Baso # Seg Neutrophils % 84.5 H Seg Neuts % (Manual) Lymphocytes % (Manual) Seg Neutrophils # 12.3 H Seg Neutrophils # Man Lymphocytes # (Manual) Monocytes # (Manual) PT INR APTT Heparin Anti-Xa Level POC ABG pH POC ABG pCO2 POC ABG pO2 Sodium Potassium Chloride Carbon Dioxide BUN Creatinine Glucose POC Glucose 267 H 212 H Calcium Phosphorus Lactate Dehydrogenase Total Creatine Kinase NT-Pro-B Natriuret Pep Albumin Zvuyv-2-Ablcpoggr Utebd-9-Qsqcnnxht Beta Globulins PEP Interpretation Cholesterol LDL Cholesterol Direct Urine Creatinine 04/04/16 04/04/16 04/04/16 05:00 09:55 09:55 WBC RBC Hgb 11.5 L Hct MCV MCH MCHC RDW Plt Count Lymph % (Auto) Saunders % (Auto) Lymph # Saunders # Baso # Seg Neutrophils % Seg Neuts % (Manual) Lymphocytes % (Manual) Seg Neutrophils # Seg Neutrophils # Man Lymphocytes # (Manual) Monocytes # (Manual) PT INR APTT 42.1 H Heparin Anti-Xa Level POC ABG pH POC ABG pCO2 POC ABG pO2 Sodium 146 H Potassium Chloride Carbon Dioxide BUN 22 H Creatinine Glucose 128 H POC Glucose Calcium Phosphorus Lactate Dehydrogenase Total Creatine Kinase NT-Pro-B Natriuret Pep Albumin Dklaw-3-Qljsxdnza Bcvzs-9-Bgxfynugo Beta Globulins PEP Interpretation Cholesterol LDL Cholesterol Direct Urine Creatinine 04/04/16 04/04/16 04/04/16 11:45 17:49 17:55 WBC RBC Hgb Hct MCV MCH MCHC RDW Plt Count Lymph % (Auto) Saunders % (Auto) Lymph # Saunders # Baso # Seg Neutrophils % Seg Neuts % (Manual) Lymphocytes % (Manual) Seg Neutrophils # Seg Neutrophils # Man Lymphocytes # (Manual) Monocytes # (Manual) PT INR APTT Heparin Anti-Xa Level 1.19 H POC ABG pH POC ABG pCO2 POC ABG pO2 Sodium Potassium Chloride Carbon Dioxide BUN Creatinine Glucose POC Glucose 231 H 186 H Calcium Phosphorus Lactate Dehydrogenase Total Creatine Kinase NT-Pro-B Natriuret Pep Albumin Arapc-2-Hnjvtnprf Nsefh-3-Vmmqovptj Beta Globulins PEP Interpretation Cholesterol LDL Cholesterol Direct Urine Creatinine 04/05/16 04/05/16 04/05/16 00:35 05:32 05:42 WBC RBC Hgb Hct MCV MCH MCHC RDW Plt Count Lymph % (Auto) Saunders % (Auto) Lymph # Saunders # Baso # Seg Neutrophils % Seg Neuts % (Manual) Lymphocytes % (Manual) Seg Neutrophils # Seg Neutrophils # Man Lymphocytes # (Manual) Monocytes # (Manual) PT INR APTT Heparin Anti-Xa Level POC ABG pH 7.491 H POC ABG pCO2 POC ABG pO2 Sodium Potassium Chloride Carbon Dioxide BUN Creatinine Glucose POC Glucose 192 H 242 H Calcium Phosphorus Lactate Dehydrogenase Total Creatine Kinase NT-Pro-B Natriuret Pep Albumin Emcnw-9-Paincsiyl Usjlk-7-Huskrtrqm Beta Globulins PEP Interpretation Cholesterol LDL Cholesterol Direct Urine Creatinine 04/05/16 04/05/16 04/05/16 06:20 06:20 12:19 WBC 13.9 H RBC Hgb 11.6 L Hct MCV 81 L MCH 26 L MCHC RDW Plt Count Lymph % (Auto) 9.6 L Saunders % (Auto) 8.7 H Lymph # Saunders # 1.2 H Baso # Seg Neutrophils % 80.9 H Seg Neuts % (Manual) Lymphocytes % (Manual) Seg Neutrophils # 11.3 H Seg Neutrophils # Man Lymphocytes # (Manual) Monocytes # (Manual) PT INR APTT Heparin Anti-Xa Level POC ABG pH POC ABG pCO2 POC ABG pO2 Sodium 148 H Potassium Chloride Carbon Dioxide BUN 23 H Creatinine Glucose 242 H POC Glucose 187 H Calcium Phosphorus Lactate Dehydrogenase Total Creatine Kinase NT-Pro-B Natriuret Pep Albumin Klhuh-0-Wzvjwvegt Uqiba-0-Mhhtogmio Beta Globulins PEP Interpretation Cholesterol LDL Cholesterol Direct Urine Creatinine 04/05/16 04/05/16 04/06/16 17:10 23:45 05:23 WBC 13.0 H RBC Hgb Hct MCV 82 L MCH 26 L MCHC 31 L RDW Plt Count Lymph % (Auto) 6.7 L Saunders % (Auto) 8.3 H Lymph # 0.9 L Saunders # 1.1 H Baso # Seg Neutrophils % 84.6 H Seg Neuts % (Manual) Lymphocytes % (Manual) Seg Neutrophils # 11.0 H Seg Neutrophils # Man Lymphocytes # (Manual) Monocytes # (Manual) PT INR APTT Heparin Anti-Xa Level POC ABG pH POC ABG pCO2 POC ABG pO2 Sodium Potassium Chloride Carbon Dioxide BUN Creatinine Glucose POC Glucose 169 H 202 H Calcium Phosphorus Lactate Dehydrogenase Total Creatine Kinase NT-Pro-B Natriuret Pep Albumin Vcxhl-9-Axyuptmsm Qrnfs-7-Nmktoypvx Beta Globulins PEP Interpretation Cholesterol LDL Cholesterol Direct Urine Creatinine 04/06/16 04/06/16 04/06/16 05:23 05:23 06:11 WBC RBC Hgb Hct MCV MCH MCHC RDW Plt Count Lymph % (Auto) Saunders % (Auto) Lymph # Saunders # Baso # Seg Neutrophils % Seg Neuts % (Manual) Lymphocytes % (Manual) Seg Neutrophils # Seg Neutrophils # Man Lymphocytes # (Manual) Monocytes # (Manual) PT INR APTT Heparin Anti-Xa Level 0.21 L POC ABG pH POC ABG pCO2 POC ABG pO2 Sodium 153 H Potassium Chloride 111.3 H Carbon Dioxide BUN 22 H Creatinine Glucose 62 L POC Glucose 56 L Calcium Phosphorus Lactate Dehydrogenase Total Creatine Kinase NT-Pro-B Natriuret Pep Albumin Qjoko-8-Xyogpplsd Nwkxl-1-Xtsteamgx Beta Globulins PEP Interpretation Cholesterol LDL Cholesterol Direct Urine Creatinine 04/06/16 04/06/16 04/06/16 06:52 11:36 14:58 WBC RBC Hgb Hct MCV MCH MCHC RDW Plt Count Lymph % (Auto) Saunders % (Auto) Lymph # Saunders # Baso # Seg Neutrophils % Seg Neuts % (Manual) Lymphocytes % (Manual) Seg Neutrophils # Seg Neutrophils # Man Lymphocytes # (Manual) Monocytes # (Manual) PT INR APTT Heparin Anti-Xa Level POC ABG pH POC ABG pCO2 POC ABG pO2 Sodium Potassium Chloride Carbon Dioxide BUN Creatinine Glucose POC Glucose 206 H 139 H 147 H Calcium Phosphorus Lactate Dehydrogenase Total Creatine Kinase NT-Pro-B Natriuret Pep Albumin Bygrc-1-Klbfkkbrc Mzkxq-4-Nnhdlyniu Beta Globulins PEP Interpretation Cholesterol LDL Cholesterol Direct Urine Creatinine 04/06/16 04/06/16 04/06/16 16:03 21:18 23:53 WBC RBC Hgb Hct MCV MCH MCHC RDW Plt Count Lymph % (Auto) Saunders % (Auto) Lymph # Saunders # Baso # Seg Neutrophils % Seg Neuts % (Manual) Lymphocytes % (Manual) Seg Neutrophils # Seg Neutrophils # Man Lymphocytes # (Manual) Monocytes # (Manual) PT INR APTT Heparin Anti-Xa Level POC ABG pH POC ABG pCO2 POC ABG pO2 Sodium Potassium Chloride Carbon Dioxide BUN Creatinine Glucose POC Glucose 154 H 293 H 301 H Calcium Phosphorus Lactate Dehydrogenase Total Creatine Kinase NT-Pro-B Natriuret Pep Albumin Fdrnu-9-Burpovuel Cvvup-1-Pmwdzuptz Beta Globulins PEP Interpretation Cholesterol LDL Cholesterol Direct Urine Creatinine 04/07/16 04/07/16 04/07/16 02:30 05:11 05:11 WBC 12.5 H RBC Hgb 11.5 L Hct MCV 82 L MCH 26 L MCHC 31 L RDW Plt Count Lymph % (Auto) Saunders % (Auto) Lymph # Saunders # Baso # Seg Neutrophils % Seg Neuts % (Manual) Lymphocytes % (Manual) Seg Neutrophils # Seg Neutrophils # Man Lymphocytes # (Manual) Monocytes # (Manual) PT INR APTT Heparin Anti-Xa Level 0.11 L POC ABG pH POC ABG pCO2 POC ABG pO2 Sodium 150 H Potassium Chloride 109.5 H Carbon Dioxide BUN 28 H Creatinine Glucose 264 H POC Glucose Calcium Phosphorus Lactate Dehydrogenase Total Creatine Kinase NT-Pro-B Natriuret Pep Albumin Xpeaa-6-Mboqkueqr Qfxfb-9-Mxasuqvvh Beta Globulins PEP Interpretation Cholesterol LDL Cholesterol Direct Urine Creatinine 04/07/16 04/07/16 04/07/16 06:46 10:18 11:50 WBC RBC Hgb Hct MCV MCH MCHC RDW Plt Count Lymph % (Auto) Saunders % (Auto) Lymph # Saunders # Baso # Seg Neutrophils % Seg Neuts % (Manual) Lymphocytes % (Manual) Seg Neutrophils # Seg Neutrophils # Man Lymphocytes # (Manual) Monocytes # (Manual) PT 15.1 H INR 1.20 H APTT Heparin Anti-Xa Level POC ABG pH POC ABG pCO2 POC ABG pO2 Sodium Potassium Chloride Carbon Dioxide BUN Creatinine Glucose POC Glucose 259 H 288 H Calcium Phosphorus Lactate Dehydrogenase Total Creatine Kinase NT-Pro-B Natriuret Pep Albumin Pujfz-4-Mglhwjqxj Pbxvo-3-Xvtzdopda Beta Globulins PEP Interpretation Cholesterol LDL Cholesterol Direct Urine Creatinine 04/07/16 04/08/16 04/08/16 17:58 01:25 06:49 WBC RBC Hgb Hct MCV MCH MCHC RDW Plt Count Lymph % (Auto) Saunders % (Auto) Lymph # Saunders # Baso # Seg Neutrophils % Seg Neuts % (Manual) Lymphocytes % (Manual) Seg Neutrophils # Seg Neutrophils # Man Lymphocytes # (Manual) Monocytes # (Manual) PT INR APTT Heparin Anti-Xa Level POC ABG pH POC ABG pCO2 POC ABG pO2 Sodium 156 H Potassium Chloride 114.7 H Carbon Dioxide BUN 33 H Creatinine Glucose 169 H POC Glucose 330 H 146 H Calcium Phosphorus Lactate Dehydrogenase Total Creatine Kinase NT-Pro-B Natriuret Pep Albumin Jhqzz-1-Iqtuqfvpk Okoyx-7-Ibxlyaexh Beta Globulins PEP Interpretation Cholesterol LDL Cholesterol Direct Urine Creatinine 04/08/16 04/08/16 04/08/16 07:34 10:28 10:28 WBC RBC Hgb Hct MCV MCH MCHC RDW Plt Count Lymph % (Auto) Saunders % (Auto) Lymph # Saunders # Baso # Seg Neutrophils % Seg Neuts % (Manual) Lymphocytes % (Manual) Seg Neutrophils # Seg Neutrophils # Man Lymphocytes # (Manual) Monocytes # (Manual) PT 15.5 H INR 1.24 H APTT Heparin Anti-Xa Level 0.24 L POC ABG pH POC ABG pCO2 POC ABG pO2 Sodium Potassium Chloride Carbon Dioxide BUN Creatinine Glucose POC Glucose 232 H Calcium Phosphorus Lactate Dehydrogenase Total Creatine Kinase NT-Pro-B Natriuret Pep Albumin Jxtaw-1-Cyhennwtt Wefbx-3-Bjdiirlyu Beta Globulins PEP Interpretation Cholesterol LDL Cholesterol Direct Urine Creatinine 04/08/16 04/08/16 04/09/16 11:36 15:38 00:01 WBC RBC Hgb Hct MCV MCH MCHC RDW Plt Count Lymph % (Auto) Saunders % (Auto) Lymph # Saunders # Baso # Seg Neutrophils % Seg Neuts % (Manual) Lymphocytes % (Manual) Seg Neutrophils # Seg Neutrophils # Man Lymphocytes # (Manual) Monocytes # (Manual) PT INR APTT Heparin Anti-Xa Level POC ABG pH POC ABG pCO2 POC ABG pO2 Sodium Potassium Chloride Carbon Dioxide BUN Creatinine Glucose POC Glucose 193 H 163 H 180 H Calcium Phosphorus Lactate Dehydrogenase Total Creatine Kinase NT-Pro-B Natriuret Pep Albumin Yjrnx-3-Dzoolxrlz Xhloy-8-Cgcjjmugv Beta Globulins PEP Interpretation Cholesterol LDL Cholesterol Direct Urine Creatinine 04/09/16 04/09/16 04/09/16 06:17 06:42 06:42 WBC RBC Hgb Hct MCV MCH MCHC RDW Plt Count Lymph % (Auto) Saunders % (Auto) Lymph # Saunders # Baso # Seg Neutrophils % Seg Neuts % (Manual) Lymphocytes % (Manual) Seg Neutrophils # Seg Neutrophils # Man Lymphocytes # (Manual) Monocytes # (Manual) PT 17.4 H INR 1.43 H APTT Heparin Anti-Xa Level POC ABG pH POC ABG pCO2 POC ABG pO2 Sodium 153 H Potassium Chloride 113.2 H Carbon Dioxide BUN 29 H Creatinine Glucose 301 H POC Glucose 249 H Calcium 8.3 L Phosphorus Lactate Dehydrogenase Total Creatine Kinase NT-Pro-B Natriuret Pep Albumin Qzavc-3-Rdbxfdnie Hxkmi-8-Ncyumdxqg Beta Globulins PEP Interpretation Cholesterol LDL Cholesterol Direct Urine Creatinine 04/09/16 04/09/16 04/09/16 07:37 11:26 15:45 WBC RBC Hgb Hct MCV MCH MCHC RDW Plt Count Lymph % (Auto) Saunders % (Auto) Lymph # Saunders # Baso # Seg Neutrophils % Seg Neuts % (Manual) Lymphocytes % (Manual) Seg Neutrophils # Seg Neutrophils # Man Lymphocytes # (Manual) Monocytes # (Manual) PT INR APTT Heparin Anti-Xa Level POC ABG pH POC ABG pCO2 POC ABG pO2 Sodium Potassium Chloride Carbon Dioxide BUN Creatinine Glucose POC Glucose 283 H 306 H 354 H Calcium Phosphorus Lactate Dehydrogenase Total Creatine Kinase NT-Pro-B Natriuret Pep Albumin Hovcw-5-Yfddqgfzg Wrlta-7-Jogpitycy Beta Globulins PEP Interpretation Cholesterol LDL Cholesterol Direct Urine Creatinine 04/10/16 04/10/16 04/10/16 00:53 07:15 07:34 WBC RBC Hgb 11.3 L Hct MCV MCH MCHC RDW Plt Count Lymph % (Auto) Saunders % (Auto) Lymph # Saunders # Baso # Seg Neutrophils % Seg Neuts % (Manual) Lymphocytes % (Manual) Seg Neutrophils # Seg Neutrophils # Man Lymphocytes # (Manual) Monocytes # (Manual) PT INR APTT Heparin Anti-Xa Level POC ABG pH POC ABG pCO2 POC ABG pO2 Sodium Potassium Chloride Carbon Dioxide BUN Creatinine Glucose POC Glucose 323 H 311 H Calcium Phosphorus Lactate Dehydrogenase Total Creatine Kinase NT-Pro-B Natriuret Pep Albumin Hpgsq-2-Wqglxjlaa Jhrjj-8-Ohcmjjrur Beta Globulins PEP Interpretation Cholesterol LDL Cholesterol Direct Urine Creatinine 04/10/16 04/10/16 04/10/16 07:34 07:34 11:25 WBC RBC Hgb Hct MCV MCH MCHC RDW Plt Count Lymph % (Auto) Saunders % (Auto) Lymph # Saunders # Baso # Seg Neutrophils % Seg Neuts % (Manual) Lymphocytes % (Manual) Seg Neutrophils # Seg Neutrophils # Man Lymphocytes # (Manual) Monocytes # (Manual) PT 17.3 H INR 1.42 H APTT Heparin Anti-Xa Level POC ABG pH POC ABG pCO2 POC ABG pO2 Sodium 158 H Potassium Chloride 118.6 H Carbon Dioxide BUN 30 H Creatinine Glucose 330 H POC Glucose 335 H Calcium 8.3 L Phosphorus Lactate Dehydrogenase Total Creatine Kinase NT-Pro-B Natriuret Pep Albumin Nkrcg-3-Cdsvixohv Fzenc-2-Ourselxxm Beta Globulins PEP Interpretation Cholesterol LDL Cholesterol Direct Urine Creatinine 04/10/16 04/11/16 04/11/16 16:21 00:29 07:47 WBC RBC Hgb Hct MCV MCH MCHC RDW Plt Count Lymph % (Auto) Saunders % (Auto) Lymph # Saunders # Baso # Seg Neutrophils % Seg Neuts % (Manual) Lymphocytes % (Manual) Seg Neutrophils # Seg Neutrophils # Man Lymphocytes # (Manual) Monocytes # (Manual) PT 18.4 H INR 1.53 H APTT Heparin Anti-Xa Level POC ABG pH POC ABG pCO2 POC ABG pO2 Sodium Potassium Chloride Carbon Dioxide BUN Creatinine Glucose POC Glucose 230 H 162 H Calcium Phosphorus Lactate Dehydrogenase Total Creatine Kinase NT-Pro-B Natriuret Pep Albumin Bvgol-4-Islnerryh Gcvph-3-Qdxqffncb Beta Globulins PEP Interpretation Cholesterol LDL Cholesterol Direct Urine Creatinine 04/11/16 04/11/16 04/12/16 07:47 11:22 04:54 WBC RBC Hgb 11.0 L Hct 35.0 L MCV MCH MCHC RDW Plt Count Lymph % (Auto) Saunders % (Auto) Lymph # Saunders # Baso # Seg Neutrophils % Seg Neuts % (Manual) Lymphocytes % (Manual) Seg Neutrophils # Seg Neutrophils # Man Lymphocytes # (Manual) Monocytes # (Manual) PT INR APTT Heparin Anti-Xa Level POC ABG pH POC ABG pCO2 POC ABG pO2 Sodium 155 H Potassium Chloride 114.5 H Carbon Dioxide BUN 23 H Creatinine Glucose 157 H POC Glucose 229 H Calcium Phosphorus Lactate Dehydrogenase Total Creatine Kinase NT-Pro-B Natriuret Pep Albumin Ymxbr-2-Hcvqimyrz Thpkm-2-Zyasjkfej Beta Globulins PEP Interpretation Cholesterol LDL Cholesterol Direct Urine Creatinine 04/12/16 04/12/16 04/12/16 04:54 04:54 05:57 WBC RBC Hgb Hct MCV MCH MCHC RDW Plt Count Lymph % (Auto) Saunders % (Auto) Lymph # Saunders # Baso # Seg Neutrophils % Seg Neuts % (Manual) Lymphocytes % (Manual) Seg Neutrophils # Seg Neutrophils # Man Lymphocytes # (Manual) Monocytes # (Manual) PT 22.5 H INR 1.98 H APTT Heparin Anti-Xa Level 0.19 L POC ABG pH POC ABG pCO2 POC ABG pO2 Sodium 156 H Potassium Chloride 115.4 H Carbon Dioxide BUN 23 H Creatinine Glucose 143 H POC Glucose 194 H Calcium Phosphorus Lactate Dehydrogenase Total Creatine Kinase NT-Pro-B Natriuret Pep Albumin Mwbgk-7-Evwlpcspm Qxdkv-5-Hrjfaygpr Beta Globulins PEP Interpretation Cholesterol LDL Cholesterol Direct Urine Creatinine 04/12/16 04/12/16 04/12/16 12:34 19:01 23:30 WBC RBC Hgb Hct MCV MCH MCHC RDW Plt Count Lymph % (Auto) Saunders % (Auto) Lymph # Saunders # Baso # Seg Neutrophils % Seg Neuts % (Manual) Lymphocytes % (Manual) Seg Neutrophils # Seg Neutrophils # Man Lymphocytes # (Manual) Monocytes # (Manual) PT INR APTT Heparin Anti-Xa Level POC ABG pH POC ABG pCO2 POC ABG pO2 Sodium Potassium Chloride Carbon Dioxide BUN Creatinine Glucose POC Glucose 291 H 235 H 154 H Calcium Phosphorus Lactate Dehydrogenase Total Creatine Kinase NT-Pro-B Natriuret Pep Albumin Fmhda-0-Zrdvtkohd Vigvv-6-Wwkyulnok Beta Globulins PEP Interpretation Cholesterol LDL Cholesterol Direct Urine Creatinine 1204/13/16 04/13/16 05:16 05:16 05:28 WBC RBC Hgb Hct MCV MCH MCHC RDW Plt Count Lymph % (Auto) Saunders % (Auto) Lymph # Saunders # Baso # Seg Neutrophils % Seg Neuts % (Manual) Lymphocytes % (Manual) Seg Neutrophils # Seg Neutrophils # Man Lymphocytes # (Manual) Monocytes # (Manual) PT 27.0 H INR 2.49 H APTT Heparin Anti-Xa Level 0.20 L POC ABG pH POC ABG pCO2 POC ABG pO2 Sodium 150 H Potassium Chloride 110.5 H Carbon Dioxide BUN 21 H Creatinine Glucose 159 H POC Glucose 177 H Calcium Phosphorus Lactate Dehydrogenase Total Creatine Kinase NT-Pro-B Natriuret Pep Albumin Xpjfj-9-Koakbigor Whcpw-8-Jzknwihjq Beta Globulins PEP Interpretation Cholesterol LDL Cholesterol Direct Urine Creatinine 04/13/16 04/13/16 04/14/16 11:30 17:54 00:44 WBC RBC Hgb Hct MCV MCH MCHC RDW Plt Count Lymph % (Auto) Saunders % (Auto) Lymph # Saunders # Baso # Seg Neutrophils % Seg Neuts % (Manual) Lymphocytes % (Manual) Seg Neutrophils # Seg Neutrophils # Man Lymphocytes # (Manual) Monocytes # (Manual) PT INR APTT Heparin Anti-Xa Level POC ABG pH POC ABG pCO2 POC ABG pO2 Sodium Potassium Chloride Carbon Dioxide BUN Creatinine Glucose POC Glucose 181 H 251 H 237 H Calcium Phosphorus Lactate Dehydrogenase Total Creatine Kinase NT-Pro-B Natriuret Pep Albumin Kaqsy-7-Ezobqriez Dpndt-6-Urmwiivpi Beta Globulins PEP Interpretation Cholesterol LDL Cholesterol Direct Urine Creatinine 04/14/16 04/14/16 04/14/16 05:00 05:42 05:42 WBC RBC Hgb Hct MCV MCH MCHC RDW Plt Count Lymph % (Auto) Saunders % (Auto) Lymph # Saunders # Baso # Seg Neutrophils % Seg Neuts % (Manual) Lymphocytes % (Manual) Seg Neutrophils # Seg Neutrophils # Man Lymphocytes # (Manual) Monocytes # (Manual) PT 30.3 H INR 2.88 H APTT Heparin Anti-Xa Level 0.27 L POC ABG pH POC ABG pCO2 POC ABG pO2 Sodium Potassium 3.5 L Chloride Carbon Dioxide BUN Creatinine Glucose 160 H POC Glucose Calcium 8.2 L Phosphorus Lactate Dehydrogenase Total Creatine Kinase NT-Pro-B Natriuret Pep Albumin Sylyw-3-Jmewbpmib Oqtfv-2-Crywbrbyh Beta Globulins PEP Interpretation Cholesterol LDL Cholesterol Direct Urine Creatinine 04/14/16 04/14/16 04/14/16 06:02 06:16 09:18 WBC 12.3 H RBC Hgb 11.4 L Hct MCV 82 L MCH 26 L MCHC RDW Plt Count Lymph % (Auto) Saunders % (Auto) Lymph # Saunders # Baso # Seg Neutrophils % Seg Neuts % (Manual) Lymphocytes % (Manual) Seg Neutrophils # Seg Neutrophils # Man Lymphocytes # (Manual) Monocytes # (Manual) PT INR APTT Heparin Anti-Xa Level POC ABG pH POC ABG pCO2 POC ABG pO2 Sodium Potassium Chloride Carbon Dioxide BUN Creatinine Glucose POC Glucose 156 H 164 H Calcium Phosphorus Lactate Dehydrogenase Total Creatine Kinase NT-Pro-B Natriuret Pep Albumin Vivtf-5-Dtmbtzxec Rrgtq-0-Oxwqcbbpf Beta Globulins PEP Interpretation Cholesterol LDL Cholesterol Direct Urine Creatinine 04/14/16 04/15/16 04/15/16 13:58 01:07 06:04 WBC RBC Hgb Hct MCV MCH MCHC RDW Plt Count Lymph % (Auto) Saunders % (Auto) Lymph # Saunders # Baso # Seg Neutrophils % Seg Neuts % (Manual) Lymphocytes % (Manual) Seg Neutrophils # Seg Neutrophils # Man Lymphocytes # (Manual) Monocytes # (Manual) PT 24.9 H INR 2.25 H APTT Heparin Anti-Xa Level POC ABG pH POC ABG pCO2 POC ABG pO2 Sodium Potassium Chloride Carbon Dioxide BUN Creatinine Glucose POC Glucose 109 H 154 H Calcium Phosphorus Lactate Dehydrogenase Total Creatine Kinase NT-Pro-B Natriuret Pep Albumin Furfj-5-Hmxbocpto Ttcgi-8-Nqqotztcr Beta Globulins PEP Interpretation Cholesterol LDL Cholesterol Direct Urine Creatinine 04/15/16 04/15/16 04/16/16 06:08 12:41 00:38 WBC RBC Hgb Hct MCV MCH MCHC RDW Plt Count Lymph % (Auto) Saunders % (Auto) Lymph # Saunders # Baso # Seg Neutrophils % Seg Neuts % (Manual) Lymphocytes % (Manual) Seg Neutrophils # Seg Neutrophils # Man Lymphocytes # (Manual) Monocytes # (Manual) PT INR APTT Heparin Anti-Xa Level POC ABG pH POC ABG pCO2 POC ABG pO2 Sodium Potassium Chloride Carbon Dioxide BUN Creatinine Glucose POC Glucose 165 H 223 H 216 H Calcium Phosphorus Lactate Dehydrogenase Total Creatine Kinase NT-Pro-B Natriuret Pep Albumin Ebjng-4-Dsmwaztej Ablhq-2-Mxijmzdks Beta Globulins PEP Interpretation Cholesterol LDL Cholesterol Direct Urine Creatinine 04/16/16 04/16/16 04/16/16 05:45 07:09 14:00 WBC RBC Hgb Hct MCV MCH MCHC RDW Plt Count Lymph % (Auto) Saunders % (Auto) Lymph # Saunders # Baso # Seg Neutrophils % Seg Neuts % (Manual) Lymphocytes % (Manual) Seg Neutrophils # Seg Neutrophils # Man Lymphocytes # (Manual) Monocytes # (Manual) PT 19.4 H INR 1.64 H APTT Heparin Anti-Xa Level 0.10 L POC ABG pH POC ABG pCO2 POC ABG pO2 Sodium Potassium Chloride Carbon Dioxide BUN Creatinine Glucose POC Glucose 207 H 69 L Calcium Phosphorus Lactate Dehydrogenase Total Creatine Kinase NT-Pro-B Natriuret Pep Albumin Gcntp-4-Qakmwxfgm Tbrxe-1-Ihatswxat Beta Globulins PEP Interpretation Cholesterol LDL Cholesterol Direct Urine Creatinine 04/16/16 04/16/16 04/16/16 17:40 17:52 19:38 WBC RBC Hgb Hct MCV MCH MCHC RDW Plt Count Lymph % (Auto) Saunders % (Auto) Lymph # Saunders # Baso # Seg Neutrophils % Seg Neuts % (Manual) Lymphocytes % (Manual) Seg Neutrophils # Seg Neutrophils # Man Lymphocytes # (Manual) Monocytes # (Manual) PT INR APTT Heparin Anti-Xa Level 0.26 L POC ABG pH 7.543 H 7.488 H POC ABG pCO2 26.3 L 30.3 L POC ABG pO2 55 L 203 H Sodium Potassium Chloride Carbon Dioxide BUN Creatinine Glucose POC Glucose Calcium Phosphorus Lactate Dehydrogenase Total Creatine Kinase NT-Pro-B Natriuret Pep Albumin Eynyh-4-Ngworytpm Hinsm-0-Wyhysiijj Beta Globulins PEP Interpretation Cholesterol LDL Cholesterol Direct Urine Creatinine 04/17/16 04/17/16 04/17/16 00:04 05:10 05:36 WBC RBC Hgb Hct MCV MCH MCHC RDW Plt Count Lymph % (Auto) Saunders % (Auto) Lymph # Saunders # Baso # Seg Neutrophils % Seg Neuts % (Manual) Lymphocytes % (Manual) Seg Neutrophils # Seg Neutrophils # Man Lymphocytes # (Manual) Monocytes # (Manual) PT INR APTT Heparin Anti-Xa Level POC ABG pH POC ABG pCO2 32.7 L POC ABG pO2 68 L Sodium Potassium Chloride Carbon Dioxide BUN Creatinine Glucose POC Glucose 113 H 161 H Calcium Phosphorus Lactate Dehydrogenase Total Creatine Kinase NT-Pro-B Natriuret Pep Albumin Sodvv-6-Fgcrmwwzi Unxtz-3-Lhuztdfzs Beta Globulins PEP Interpretation Cholesterol LDL Cholesterol Direct Urine Creatinine 04/17/16 04/17/16 04/17/16 05:41 08:37 11:46 WBC RBC Hgb Hct MCV MCH MCHC RDW Plt Count Lymph % (Auto) Saunders % (Auto) Lymph # Saunders # Baso # Seg Neutrophils % Seg Neuts % (Manual) Lymphocytes % (Manual) Seg Neutrophils # Seg Neutrophils # Man Lymphocytes # (Manual) Monocytes # (Manual) PT 17.4 H INR 1.43 H APTT Heparin Anti-Xa Level POC ABG pH POC ABG pCO2 POC ABG pO2 Sodium Potassium Chloride Carbon Dioxide BUN Creatinine Glucose POC Glucose 154 H 138 H Calcium Phosphorus Lactate Dehydrogenase Total Creatine Kinase NT-Pro-B Natriuret Pep Albumin Ustze-1-[place] Eknyx-9-Dktedbihv Beta Globulins PEP Interpretation Cholesterol LDL Cholesterol Direct Urine Creatinine 04/17/16 04/17/16 04/17/16 12:17 12:17 21:20 WBC 16.5 H RBC 3.31 L Hgb 8.8 L Hct 26.9 L MCV 81 L MCH 27 L MCHC RDW 15.5 H Plt Count Lymph % (Auto) Saunders % (Auto) Lymph # Saunders # Baso # Seg Neutrophils % Seg Neuts % (Manual) Lymphocytes % (Manual) 3.0 L Seg Neutrophils # Seg Neutrophils # Man 10.1 H Lymphocytes # (Manual) 0.5 L Monocytes # (Manual) PT INR APTT Heparin Anti-Xa Level 0.14 L POC ABG pH POC ABG pCO2 POC ABG pO2 Sodium Potassium Chloride Carbon Dioxide 21 L BUN 38 H Creatinine 1.8 H D Glucose 131 H POC Glucose Calcium 7.6 L Phosphorus Lactate Dehydrogenase Total Creatine Kinase NT-Pro-B Natriuret Pep Albumin Ysqvy-5-Nwlsmaqsz Kdilt-0-Sgaehwrgk Beta Globulins PEP Interpretation Cholesterol LDL Cholesterol Direct Urine Creatinine 04/17/16 04/17/16 04/18/16 23:38 23:41 00:21 WBC RBC Hgb Hct MCV MCH MCHC RDW Plt Count Lymph % (Auto) Saunders % (Auto) Lymph # Saunders # Baso # Seg Neutrophils % Seg Neuts % (Manual) Lymphocytes % (Manual) Seg Neutrophils # Seg Neutrophils # Man Lymphocytes # (Manual) Monocytes # (Manual) PT INR APTT Heparin Anti-Xa Level POC ABG pH POC ABG pCO2 POC ABG pO2 Sodium Potassium Chloride Carbon Dioxide BUN Creatinine Glucose POC Glucose < 40 L < 40 L 223 H Calcium Phosphorus Lactate Dehydrogenase Total Creatine Kinase NT-Pro-B Natriuret Pep Albumin Uvjld-1-Ecuujtbsl Bctqp-8-Lwutoojqc Beta Globulins PEP Interpretation Cholesterol LDL Cholesterol Direct Urine Creatinine 04/18/16 04/18/16 04/18/16 05:01 05:20 05:20 WBC 17.6 H RBC 3.44 L Hgb 9.1 L Hct 27.8 L MCV 81 L MCH 26 L MCHC RDW 15.5 H Plt Count Lymph % (Auto) 2.7 L Saunders % (Auto) 8.3 H Lymph # 0.5 L Saunders # 1.5 H Baso # Seg Neutrophils % 88.4 H Seg Neuts % (Manual) Lymphocytes % (Manual) Seg Neutrophils # 15.6 H Seg Neutrophils # Man Lymphocytes # (Manual) Monocytes # (Manual) PT 17.4 H INR 1.43 H APTT Heparin Anti-Xa Level POC ABG pH 7.528 H POC ABG pCO2 27.9 L POC ABG pO2 Sodium Potassium Chloride Carbon Dioxide BUN Creatinine Glucose POC Glucose Calcium Phosphorus Lactate Dehydrogenase Total Creatine Kinase NT-Pro-B Natriuret Pep Albumin Xbzec-1-Dewsdwvop Kplwh-0-Grzkjlwgx Beta Globulins PEP Interpretation Cholesterol LDL Cholesterol Direct Urine Creatinine 04/18/16 04/18/16 04/18/16 05:20 05:31 06:50 WBC RBC Hgb Hct MCV MCH MCHC RDW Plt Count Lymph % (Auto) Saunders % (Auto) Lymph # Saunders # Baso # Seg Neutrophils % Seg Neuts % (Manual) Lymphocytes % (Manual) Seg Neutrophils # Seg Neutrophils # Man Lymphocytes # (Manual) Monocytes # (Manual) PT INR APTT Heparin Anti-Xa Level POC ABG pH POC ABG pCO2 POC ABG pO2 Sodium Potassium 3.4 L Chloride Carbon Dioxide 21 L BUN 22 H Creatinine Glucose POC Glucose 61 L 124 H Calcium 8.0 L Phosphorus Lactate Dehydrogenase Total Creatine Kinase NT-Pro-B Natriuret Pep Albumin Wcukk-9-Ffifcvpxc Mydcj-9-Bdtwqydtl Beta Globulins PEP Interpretation Cholesterol LDL Cholesterol Direct Urine Creatinine 04/18/16 04/18/16 04/19/16 17:42 22:40 00:31 WBC RBC Hgb Hct MCV MCH MCHC RDW Plt Count Lymph % (Auto) Saunders % (Auto) Lymph # Saunders # Baso # Seg Neutrophils % Seg Neuts % (Manual) Lymphocytes % (Manual) Seg Neutrophils # Seg Neutrophils # Man Lymphocytes # (Manual) Monocytes # (Manual) PT INR APTT Heparin Anti-Xa Level < 0.10 L POC ABG pH POC ABG pCO2 POC ABG pO2 Sodium Potassium Chloride Carbon Dioxide BUN Creatinine Glucose POC Glucose 159 H 134 H Calcium Phosphorus Lactate Dehydrogenase Total Creatine Kinase NT-Pro-B Natriuret Pep Albumin Wqsxa-3-Occtrbenu Plcmm-3-Tvxaslykk Beta Globulins PEP Interpretation Cholesterol LDL Cholesterol Direct Urine Creatinine 04/19/16 04/19/16 04/19/16 04:18 04:18 04:25 WBC 19.0 H RBC 3.58 L Hgb 9.3 L Hct 28.8 L MCV 80 L MCH 26 L MCHC RDW 15.5 H Plt Count Lymph % (Auto) 2.8 L Saunders % (Auto) 7.4 H Lymph # 0.5 L Saunders # 1.4 H Baso # Seg Neutrophils % 89.4 H Seg Neuts % (Manual) Lymphocytes % (Manual) Seg Neutrophils # 17.0 H Seg Neutrophils # Man Lymphocytes # (Manual) Monocytes # (Manual) PT INR APTT Heparin Anti-Xa Level POC ABG pH 7.527 H POC ABG pCO2 27.1 L POC ABG pO2 Sodium Potassium Chloride Carbon Dioxide BUN 22 H Creatinine Glucose 215 H POC Glucose Calcium 8.0 L Phosphorus Lactate Dehydrogenase Total Creatine Kinase NT-Pro-B Natriuret Pep Albumin Fqymn-9-Lnzvbnqvb Imisb-2-Upktllxvq Beta Globulins PEP Interpretation Cholesterol LDL Cholesterol Direct Urine Creatinine 04/19/16 04/19/16 04/19/16 05:45 08:10 14:08 WBC RBC Hgb Hct MCV MCH MCHC RDW Plt Count Lymph % (Auto) Saunders % (Auto) Lymph # Saunders # Baso # Seg Neutrophils % Seg Neuts % (Manual) Lymphocytes % (Manual) Seg Neutrophils # Seg Neutrophils # Man Lymphocytes # (Manual) Monocytes # (Manual) PT 22.1 H INR 1.93 H APTT Heparin Anti-Xa Level 0.17 L POC ABG pH POC ABG pCO2 POC ABG pO2 Sodium Potassium Chloride Carbon Dioxide BUN Creatinine Glucose POC Glucose 196 H 318 H Calcium Phosphorus Lactate Dehydrogenase Total Creatine Kinase NT-Pro-B Natriuret Pep Albumin Wprbs-3-Waqjcuekd Scegv-4-Fjzuhmtzp Beta Globulins PEP Interpretation Cholesterol LDL Cholesterol Direct Urine Creatinine 04/19/16 04/20/16 04/20/16 17:27 03:55 03:55 WBC 18.5 H RBC 3.19 L Hgb 8.4 L Hct 25.7 L MCV 80 L MCH 26 L MCHC RDW 15.9 H Plt Count Lymph % (Auto) 4.3 L Saunders % (Auto) 10.1 H Lymph # 0.8 L Saunders # 1.9 H Baso # Seg Neutrophils % 85.2 H Seg Neuts % (Manual) Lymphocytes % (Manual) Seg Neutrophils # 15.8 H Seg Neutrophils # Man Lymphocytes # (Manual) Monocytes # (Manual) PT 22.0 H INR 1.92 H APTT Heparin Anti-Xa Level 0.14 L POC ABG pH POC ABG pCO2 POC ABG pO2 Sodium Potassium Chloride Carbon Dioxide BUN Creatinine Glucose POC Glucose 230 H Calcium Phosphorus Lactate Dehydrogenase Total Creatine Kinase NT-Pro-B Natriuret Pep Albumin Dzhjy-2-Vnemicrvv Bfxts-3-Vtdgksgyl Beta Globulins PEP Interpretation Cholesterol LDL Cholesterol Direct Urine Creatinine 04/20/16 04/20/16 04/20/16 03:55 04:16 05:52 WBC RBC Hgb Hct MCV MCH MCHC RDW Plt Count Lymph % (Auto) Saunders % (Auto) Lymph # Saunders # Baso # Seg Neutrophils % Seg Neuts % (Manual) Lymphocytes % (Manual) Seg Neutrophils # Seg Neutrophils # Man Lymphocytes # (Manual) Monocytes # (Manual) PT INR APTT Heparin Anti-Xa Level POC ABG pH 7.474 H POC ABG pCO2 26.5 L POC ABG pO2 Sodium Potassium Chloride Carbon Dioxide 18 L BUN 38 H Creatinine 2.7 H D Glucose 159 H POC Glucose 214 H Calcium 8.0 L Phosphorus Lactate Dehydrogenase Total Creatine Kinase NT-Pro-B Natriuret Pep Albumin Ostte-9-Zxridvmwz Jttqo-7-Yysbtoxux Beta Globulins PEP Interpretation Cholesterol LDL Cholesterol Direct Urine Creatinine 04/20/16 04/20/16 04/20/16 10:32 11:27 11:50 WBC RBC Hgb Hct MCV MCH MCHC RDW Plt Count Lymph % (Auto) Saunders % (Auto) Lymph # Saunders # Baso # Seg Neutrophils % Seg Neuts % (Manual) Lymphocytes % (Manual) Seg Neutrophils # Seg Neutrophils # Man Lymphocytes # (Manual) Monocytes # (Manual) PT INR APTT Heparin Anti-Xa Level POC ABG pH POC ABG pCO2 POC ABG pO2 Sodium Potassium Chloride Carbon Dioxide 20 L BUN 45 H Creatinine 3.0 H Glucose 215 H POC Glucose 248 H Calcium 8.0 L Phosphorus Lactate Dehydrogenase Total Creatine Kinase NT-Pro-B Natriuret Pep Albumin Tywvm-8-Ysnuumedt Mvwos-3-Kvoekrkqy Beta Globulins PEP Interpretation Cholesterol LDL Cholesterol Direct Urine Creatinine 85.5 H 04/20/16 04/21/16 04/21/16 16:59 00:13 04:29 WBC RBC Hgb Hct MCV MCH MCHC RDW Plt Count Lymph % (Auto) Saunders % (Auto) Lymph # Saunders # Baso # Seg Neutrophils % Seg Neuts % (Manual) Lymphocytes % (Manual) Seg Neutrophils # Seg Neutrophils # Man Lymphocytes # (Manual) Monocytes # (Manual) PT 18.1 H INR 1.50 H APTT Heparin Anti-Xa Level 0.10 L POC ABG pH POC ABG pCO2 POC ABG pO2 Sodium Potassium Chloride Carbon Dioxide BUN Creatinine Glucose POC Glucose 312 H 287 H Calcium Phosphorus Lactate Dehydrogenase Total Creatine Kinase NT-Pro-B Natriuret Pep Albumin Knits-3-Dkagvqndq Brzgv-9-Bmqbkjfkg Beta Globulins PEP Interpretation Cholesterol LDL Cholesterol Direct Urine Creatinine 04/21/16 04/21/16 04/21/16 04:29 04:29 04:55 WBC 15.4 H RBC 3.24 L Hgb 8.4 L Hct 25.6 L MCV 79 L MCH 26 L MCHC RDW 16.1 H Plt Count Lymph % (Auto) 6.8 L Saunders % (Auto) 12.9 H Lymph # 1.0 L Saunders # 2.0 H Baso # Seg Neutrophils % 79.8 H Seg Neuts % (Manual) Lymphocytes % (Manual) Seg Neutrophils # 12.3 H Seg Neutrophils # Man Lymphocytes # (Manual) Monocytes # (Manual) PT INR APTT Heparin Anti-Xa Level POC ABG pH 7.512 H POC ABG pCO2 25.4 L POC ABG pO2 Sodium 135 L Potassium Chloride Carbon Dioxide 18 L BUN 57 H Creatinine 3.9 H Glucose 202 H POC Glucose Calcium 8.0 L Phosphorus Lactate Dehydrogenase Total Creatine Kinase NT-Pro-B Natriuret Pep Albumin Zneuv-7-Bamptsoup Kouea-7-Ilxsedkxz Beta Globulins PEP Interpretation Cholesterol LDL Cholesterol Direct Urine Creatinine 04/21/16 04/21/16 04/21/16 05:20 12:08 12:16 WBC RBC Hgb Hct MCV MCH MCHC RDW Plt Count Lymph % (Auto) Saunders % (Auto) Lymph # Saunders # Baso # Seg Neutrophils % Seg Neuts % (Manual) Lymphocytes % (Manual) Seg Neutrophils # Seg Neutrophils # Man Lymphocytes # (Manual) Monocytes # (Manual) PT INR APTT Heparin Anti-Xa Level 0.16 L POC ABG pH POC ABG pCO2 POC ABG pO2 Sodium Potassium Chloride Carbon Dioxide BUN Creatinine Glucose POC Glucose 203 H 221 H Calcium Phosphorus Lactate Dehydrogenase Total Creatine Kinase NT-Pro-B Natriuret Pep Albumin Wiequ-3-Diiheztct Ddcrb-9-Klrzzyggv Beta Globulins PEP Interpretation Cholesterol LDL Cholesterol Direct Urine Creatinine 04/21/16 04/22/16 04/22/16 17:22 05:01 05:20 WBC RBC Hgb Hct MCV MCH MCHC RDW Plt Count Lymph % (Auto) Saunders % (Auto) Lymph # Saunders # Baso # Seg Neutrophils % Seg Neuts % (Manual) Lymphocytes % (Manual) Seg Neutrophils # Seg Neutrophils # Man Lymphocytes # (Manual) Monocytes # (Manual) PT 17.5 H INR 1.44 H APTT Heparin Anti-Xa Level POC ABG pH 7.460 H POC ABG pCO2 27.9 L POC ABG pO2 Sodium Potassium Chloride Carbon Dioxide BUN Creatinine Glucose POC Glucose 189 H Calcium Phosphorus Lactate Dehydrogenase Total Creatine Kinase NT-Pro-B Natriuret Pep Albumin Xwfwl-3-Qldemfbso Czabk-5-Evfaaajde Beta Globulins PEP Interpretation Cholesterol LDL Cholesterol Direct Urine Creatinine 04/22/16 04/22/16 04/22/16 05:43 06:40 08:08 WBC RBC Hgb Hct MCV MCH MCHC RDW Plt Count Lymph % (Auto) Saunders % (Auto) Lymph # Saunders # Baso # Seg Neutrophils % Seg Neuts % (Manual) Lymphocytes % (Manual) Seg Neutrophils # Seg Neutrophils # Man Lymphocytes # (Manual) Monocytes # (Manual) PT INR APTT Heparin Anti-Xa Level POC ABG pH POC ABG pCO2 POC ABG pO2 Sodium Potassium Chloride Carbon Dioxide BUN Creatinine Glucose POC Glucose 56 L 136 H 134 H Calcium Phosphorus Lactate Dehydrogenase Total Creatine Kinase NT-Pro-B Natriuret Pep Albumin Hsyje-9-Oigtqauuw Gmgrh-7-Fycxjzqhu Beta Globulins PEP Interpretation Cholesterol LDL Cholesterol Direct Urine Creatinine 04/22/16 04/22/16 04/22/16 11:18 12:10 18:17 WBC RBC Hgb Hct MCV MCH MCHC RDW Plt Count Lymph % (Auto) Saunders % (Auto) Lymph # Saunders # Baso # Seg Neutrophils % Seg Neuts % (Manual) Lymphocytes % (Manual) Seg Neutrophils # Seg Neutrophils # Man Lymphocytes # (Manual) Monocytes # (Manual) PT INR APTT Heparin Anti-Xa Level 0.12 L POC ABG pH POC ABG pCO2 POC ABG pO2 Sodium Potassium Chloride Carbon Dioxide BUN Creatinine Glucose POC Glucose 142 H 227 H Calcium Phosphorus Lactate Dehydrogenase Total Creatine Kinase NT-Pro-B Natriuret Pep Albumin Jdnvp-6-Jrjydehan Glkru-5-Fnvwiptet Beta Globulins PEP Interpretation Cholesterol LDL Cholesterol Direct Urine Creatinine 04/22/16 04/22/16 04/23/16 22:28 23:47 04:49 WBC RBC Hgb Hct MCV MCH MCHC RDW Plt Count Lymph % (Auto) Saunders % (Auto) Lymph # Saunders # Baso # Seg Neutrophils % Seg Neuts % (Manual) Lymphocytes % (Manual) Seg Neutrophils # Seg Neutrophils # Man Lymphocytes # (Manual) Monocytes # (Manual) PT INR APTT Heparin Anti-Xa Level 0.16 L POC ABG pH POC ABG pCO2 32.6 L POC ABG pO2 122 H Sodium Potassium Chloride Carbon Dioxide BUN Creatinine Glucose POC Glucose 266 H Calcium Phosphorus Lactate Dehydrogenase Total Creatine Kinase NT-Pro-B Natriuret Pep Albumin Msmka-3-Fxovhjjlm Utsmf-5-Dlfqlpqtc Beta Globulins PEP Interpretation Cholesterol LDL Cholesterol Direct Urine Creatinine 04/23/16 04/23/16 04/23/16 05:41 08:34 10:45 WBC RBC Hgb Hct MCV MCH MCHC RDW Plt Count Lymph % (Auto) Saunders % (Auto) Lymph # Saunders # Baso # Seg Neutrophils % Seg Neuts % (Manual) Lymphocytes % (Manual) Seg Neutrophils # Seg Neutrophils # Man Lymphocytes # (Manual) Monocytes # (Manual) PT 15.9 H INR 1.28 H APTT Heparin Anti-Xa Level POC ABG pH POC ABG pCO2 POC ABG pO2 Sodium Potassium Chloride 109.5 H Carbon Dioxide 21 L BUN 23 H Creatinine Glucose 227 H POC Glucose 227 H Calcium 8.2 L Phosphorus Lactate Dehydrogenase Total Creatine Kinase NT-Pro-B Natriuret Pep Albumin Osgdh-7-Rabamhpqd Jpmvc-7-Ziksbmhnf Beta Globulins PEP Interpretation Cholesterol LDL Cholesterol Direct Urine Creatinine Chest x-ray: report reviewed, image reviewed
--- NOTE | 2016-04-23 12:34 | Progress Note ---
Assessment and Plan - Patient Problems (1) Altered mental status Current Visit: Yes Status: Acute Qualifiers: Altered mental status type: unspecified Qualified Code(s): R41.82 - Altered mental status, unspecified (2) CHF (congestive heart failure), NYHA class III Current Visit: Yes Status: Acute (3) CVA (cerebral vascular accident) Current Visit: Yes Status: Acute (4) DVT prophylaxis Current Visit: Yes Status: Acute Subjective Date of service: 04/23/16 Principal diagnosis: CVA, acute respiratory failure Objective - Constitutional Vitals: Vital Signs - 12hr 04/23/16 04/23/16 04/23/16 00:38 00:40 00:42 Temperature Pulse Rate 91 H 90 87 Pulse Rate [ Apical] Pulse Rate [ Bilateral Throughout] Pulse Rate [ From Monitor] Respiratory 21 Rate Respiratory Rate [Bilateral Throughout] Blood Pressure 166/86 141/74 143/76 O2 Sat by Pulse 100 100 Oximetry 04/23/16 04/23/16 04/23/16 01:00 01:08 01:29 Temperature Pulse Rate 90 89 Pulse Rate [ Apical] Pulse Rate [ 88 Bilateral Throughout] Pulse Rate [ From Monitor] Respiratory 25 H 23 Rate Respiratory 24 Rate [Bilateral Throughout] Blood Pressure 141/74 141/74 O2 Sat by Pulse 100 100 Oximetry 04/23/16 04/23/16 04/23/16 01:30 01:38 02:00 Temperature Pulse Rate 100 H 89 Pulse Rate [ Apical] Pulse Rate [ 90 Bilateral Throughout] Pulse Rate [ From Monitor] Respiratory 32 H 25 H Rate Respiratory 24 Rate [Bilateral Throughout] Blood Pressure 132/78 138/75 O2 Sat by Pulse 100 100 Oximetry 04/23/16 04/23/16 04/23/16 02:30 02:42 02:44 Temperature Pulse Rate 87 85 89 Pulse Rate [ Apical] Pulse Rate [ Bilateral Throughout] Pulse Rate [ From Monitor] Respiratory 23 23 25 H Rate Respiratory Rate [Bilateral Throughout] Blood Pressure 138/72 138/72 138/72 O2 Sat by Pulse 100 100 100 Oximetry 04/23/16 04/23/16 04/23/16 02:46 03:00 03:30 Temperature Pulse Rate 89 88 86 Pulse Rate [ Apical] Pulse Rate [ Bilateral Throughout] Pulse Rate [ From Monitor] Respiratory 25 H 19 25 H Rate Respiratory Rate [Bilateral Throughout] Blood Pressure 138/72 138/72 143/75 O2 Sat by Pulse 100 100 100 Oximetry 04/23/16 04/23/16 04/23/16 04:00 04:30 04:49 Temperature 98.6 F Pulse Rate 90 90 91 H Pulse Rate [ Apical] Pulse Rate [ Bilateral Throughout] Pulse Rate [ From Monitor] Respiratory 24 19 Rate Respiratory Rate [Bilateral Throughout] Blood Pressure 154/80 162/85 162/85 O2 Sat by Pulse 100 100 100 Oximetry 04/23/16 04/23/16 04/23/16 04:50 05:00 05:02 Temperature Pulse Rate 91 H 92 H 95 H Pulse Rate [ Apical] Pulse Rate [ Bilateral Throughout] Pulse Rate [ From Monitor] Respiratory 22 25 H 16 Rate Respiratory Rate [Bilateral Throughout] Blood Pressure 162/85 163/77 163/77 O2 Sat by Pulse 100 100 100 Oximetry 04/23/16 04/23/16 04/23/16 05:30 05:44 06:00 Temperature Pulse Rate 92 H 91 H 90 Pulse Rate [ Apical] Pulse Rate [ Bilateral Throughout] Pulse Rate [ From Monitor] Respiratory 25 H 25 H 24 Rate Respiratory Rate [Bilateral Throughout] Blood Pressure 155/79 155/79 157/74 O2 Sat by Pulse 100 100 100 Oximetry 04/23/16 04/23/16 04/23/16 06:01 06:30 07:00 Temperature Pulse Rate 90 90 101 H Pulse Rate [ Apical] Pulse Rate [ Bilateral Throughout] Pulse Rate [ From Monitor] Respiratory 23 25 H 28 H Rate Respiratory Rate [Bilateral Throughout] Blood Pressure 157/74 167/75 142/70 O2 Sat by Pulse 100 100 100 Oximetry 04/23/16 04/23/16 04/23/16 07:30 07:56 07:57 Temperature Pulse Rate 102 H 111 H Pulse Rate [ Apical] Pulse Rate [ 98 H Bilateral Throughout] Pulse Rate [ From Monitor] Respiratory 27 H Rate Respiratory 28 H Rate [Bilateral Throughout] Blood Pressure 133/69 144/75 O2 Sat by Pulse 100 99 Oximetry 04/23/16 04/23/16 04/23/16 08:00 08:10 08:11 Temperature 100.3 F H Pulse Rate 99 H 121 H Pulse Rate [ Apical] Pulse Rate [ Bilateral Throughout] Pulse Rate [ From Monitor] Respiratory 25 H 31 H Rate Respiratory Rate [Bilateral Throughout] Blood Pressure 144/75 144/75 O2 Sat by Pulse 99 99 Oximetry 1204/23/16 04/23/16 08:20 08:30 08:31 Temperature Pulse Rate 97 H 97 H Pulse Rate [ 100 H Apical] Pulse Rate [ Bilateral Throughout] Pulse Rate [ 100 H From Monitor] Respiratory 27 H Rate Respiratory Rate [Bilateral Throughout] Blood Pressure 147/72 144/75 O2 Sat by Pulse 99 99 Oximetry 04/23/16 04/23/16 04/23/16 09:00 09:28 09:30 Temperature Pulse Rate 85 78 77 Pulse Rate [ Apical] Pulse Rate [ Bilateral Throughout] Pulse Rate [ From Monitor] Respiratory 24 22 Rate Respiratory Rate [Bilateral Throughout] Blood Pressure 137/74 137/74 137/74 O2 Sat by Pulse 100 100 Oximetry 04/23/16 04/23/16 04/23/16 09:44 09:50 10:00 Temperature Pulse Rate 84 80 82 Pulse Rate [ Apical] Pulse Rate [ Bilateral Throughout] Pulse Rate [ From Monitor] Respiratory 24 23 25 H Rate Respiratory Rate [Bilateral Throughout] Blood Pressure 114/63 114/63 118/65 O2 Sat by Pulse 100 100 100 Oximetry 04/23/16 04/23/16 04/23/16 10:30 10:58 11:00 Temperature Pulse Rate 78 78 84 Pulse Rate [ Apical] Pulse Rate [ Bilateral Throughout] Pulse Rate [ From Monitor] Respiratory 24 24 24 Rate Respiratory Rate [Bilateral Throughout] Blood Pressure 113/57 118/65 115/67 O2 Sat by Pulse 100 100 100 Oximetry 04/23/16 04/23/16 04/23/16 11:09 11:10 11:18 Temperature Pulse Rate 78 76 77 Pulse Rate [ Apical] Pulse Rate [ Bilateral Throughout] Pulse Rate [ From Monitor] Respiratory 18 Rate Respiratory Rate [Bilateral Throughout] Blood Pressure 115/67 115/77 O2 Sat by Pulse 100 100 Oximetry 04/23/16 04/23/16 11:30 12:00 Temperature 99.0 F Pulse Rate 78 78 Pulse Rate [ 78 Apical] Pulse Rate [ Bilateral Throughout] Pulse Rate [ 78 From Monitor] Respiratory 23 22 Rate Respiratory Rate [Bilateral Throughout] Blood Pressure 106/56 107/59 O2 Sat by Pulse 100 100 Oximetry General appearance: Present: no acute distress, well-nourished - EENT Eyes: PERRL, EOM intact ENT: hearing intact, clear oral mucosa Ears: bilateral: normal - Neck Neck: supple, normal ROM - Respiratory Respiratory effort: normal Respiratory: bilateral: CTA - Breasts Breasts: normal - Cardiovascular Rhythm: regular Heart Sounds: Present: S1 & S2. Absent: gallop, rub Extremities: pulses intact, No edema, normal color, Full ROM - Gastrointestinal General gastrointestinal: Present: soft, non-tender, non-distended, normal bowel sounds - Genitourinary Male genitourinary: normal - Integumentary Integumentary: clear, warm, dry - Musculoskeletal Musculoskeletal: 1, strength equal bilaterally - Neurologic Neurologic: moves all extremities - Psychiatric Psychiatric: memory intact, appropriate mood/affect, intact judgment & insight - Labs CBC & Chem 7: 04/21/16 04:29 04/23/16 08:34 Labs: Abnormal lab results 04/22/16 04/22/16 04/22/16 Range/Units 12:10 18:17 22:28 PT (12.2-14.9) Sec. INR (0.87-1.13) Heparin Anti-Xa Level 0.12 L 0.16 L (0.3-0.7) U.I./ml POC ABG pCO2 (35-45) POC ABG pO2 (80-105) Chloride (98-107) mmol/L Carbon Dioxide (22-30) mmol/L BUN (9-20) mg/dL Glucose (75-100) mg/dL POC Glucose 227 H (70-105) Calcium (8.4-10.2) mg/dL 04/22/16 04/23/16 04/23/16 Range/Units 23:47 04:49 05:41 PT (12.2-14.9) Sec. INR (0.87-1.13) Heparin Anti-Xa Level (0.3-0.7) U.I./ml POC ABG pCO2 32.6 L (35-45) POC ABG pO2 122 H (80-105) Chloride (98-107) mmol/L Carbon Dioxide (22-30) mmol/L BUN (9-20) mg/dL Glucose (75-100) mg/dL POC Glucose 266 H 227 H (70-105) Calcium (8.4-10.2) mg/dL 04/23/16 04/23/16 04/23/16 Range/Units 08:05 08:34 10:45 PT 15.9 H (12.2-14.9) Sec. INR 1.28 H (0.87-1.13) Heparin Anti-Xa Level (0.3-0.7) U.I./ml POC ABG pCO2 (35-45) POC ABG pO2 (80-105) Chloride 109.5 H (98-107) mmol/L Carbon Dioxide 21 L (22-30) mmol/L BUN 23 H (9-20) mg/dL Glucose 227 H (75-100) mg/dL POC Glucose 224 H (70-105) Calcium 8.2 L (8.4-10.2) mg/dL 04/23/ Range/Units 11:37 PT (12.2-14.9) Sec. INR (0.87-1.13) Heparin Anti-Xa Level (0.3-0.7) U.I./ml POC ABG pCO2 (35-45) POC ABG pO2 (80-105) Chloride (98-107) mmol/L Carbon Dioxide (22-30) mmol/L BUN (9-20) mg/dL Glucose (75-100) mg/dL POC Glucose 256 H (70-105) Calcium (8.4-10.2) mg/dL
[2016-04-23] MEDS: MAXIPIME/NS 1 GM/100 ML 100 ML IV SCH ×2 (14:00→22:06)
[2016-04-24] MEDS: NOVOLOG SUB-Q SCH ×4 (00:30→17:32)
[2016-04-24] MEDS: DUONEB 0.5 MG-3 MG/3 ML SOLN IH SCH ×4 (02:07→19:43)
[2016-04-24] MEDS: HEPARIN/ 0.45% NACL-25,000 UNIT/500 ML 500 ML IV SCH (04:39)
[2016-04-24] MEDS: MAXIPIME/NS 1 GM/100 ML 100 ML IV SCH ×3 (06:12→22:17)
[2016-04-24 06:23] LABS: ISTAT Base Excess 0; ISTAT HCO3 23.3; ISTAT PCO2 32.4 (35-45); ISTAT PH 7.464 (7.35-7.45); ISTAT PO2 115 (80-105); ISTAT SO2 99; ISTAT TCO2 24
[2016-04-24] MEDS: NORMODYNE PO SCH ×3 (08:00→20:00)
[2016-04-24] MEDS: LEVEMIR SUB-Q SCH (10:00)
[2016-04-24] MEDS: KEPPRA PO SCH ×2 (10:28→22:16)
[2016-04-24] MEDS: NORVASC PO SCH (10:28)
[2016-04-24] MEDS: CORDARONE PO SCH (10:28)
[2016-04-24] MEDS: BABY ASPIRIN PO SCH (10:28)
[2016-04-24] MEDS: ZESTRIL PO SCH ×2 (10:28→22:16)
[2016-04-24] MEDS: PEPCID PO SCH ×2 (10:36→22:16)
--- NOTE | 2016-04-24 11:03 | Progress Note ---
Assessment and Plan A/P: 1. The patient is scheduled for percutaneous tracheostomy on 04/29. The still needs to be reached for consent. Subjective Date of service: 04/24/16 Narrative: The patient remains intubated. Objective Vital Signs - 12hr 04/23/16 04/23/16 04/23/16 23:07 23:29 23:30 Temperature Pulse Rate 82 74 74 Pulse Rate [ Anterior Bilateral Throughout] Pulse Rate [ Bilateral Throughout] Respiratory 29 H 22 Rate Respiratory Rate [Anterior Bilateral Throughout] Respiratory Rate [Bilateral Throughout] Blood Pressure 136/73 136/73 128/67 O2 Sat by Pulse 100 100 100 Oximetry 04/24/16 04/24/16 04/24/16 00:00 00:30 00:39 Temperature 98.1 F 98.1 F Pulse Rate 76 76 Pulse Rate [ Anterior Bilateral Throughout] Pulse Rate [ Bilateral Throughout] Respiratory 19 17 Rate Respiratory Rate [Anterior Bilateral Throughout] Respiratory Rate [Bilateral Throughout] Blood Pressure 133/70 136/70 O2 Sat by Pulse 100 100 Oximetry 04/24/16 04/24/16 04/24/16 00:41 01:00 01:05 Temperature Pulse Rate 77 76 76 Pulse Rate [ Anterior Bilateral Throughout] Pulse Rate [ Bilateral Throughout] Respiratory 22 21 21 Rate Respiratory Rate [Anterior Bilateral Throughout] Respiratory Rate [Bilateral Throughout] Blood Pressure 136/70 140/72 140/72 O2 Sat by Pulse 100 100 100 Oximetry 04/24/16 04/24/16 04/24/16 01:30 02:00 02:05 Temperature Pulse Rate 77 80 Pulse Rate [ Anterior Bilateral Throughout] Pulse Rate [ 81 Bilateral Throughout] Respiratory 14 21 Rate Respiratory Rate [Anterior Bilateral Throughout] Respiratory 19 Rate [Bilateral Throughout] Blood Pressure 146/75 146/74 O2 Sat by Pulse 100 100 Oximetry 04/24/16 04/24/16 04/24/16 02:18 02:30 02:59 Temperature Pulse Rate 81 87 Pulse Rate [ Anterior Bilateral Throughout] Pulse Rate [ 82 Bilateral Throughout] Respiratory 21 28 H Rate Respiratory Rate [Anterior Bilateral Throughout] Respiratory 16 Rate [Bilateral Throughout] Blood Pressure 139/71 139/71 O2 Sat by Pulse 100 100 Oximetry 04/24/16 04/24/16 04/24/16 03:00 03:03 03:30 Temperature Pulse Rate 86 81 86 Pulse Rate [ Anterior Bilateral Throughout] Pulse Rate [ Bilateral Throughout] Respiratory 25 H 22 14 Rate Respiratory Rate [Anterior Bilateral Throughout] Respiratory Rate [Bilateral Throughout] Blood Pressure 145/76 145/76 138/81 O2 Sat by Pulse 100 100 100 Oximetry 04/24/16 04/24/16 04/24/16 04:00 04:30 05:00 Temperature 99.7 F H Pulse Rate 82 82 78 Pulse Rate [ Anterior Bilateral Throughout] Pulse Rate [ Bilateral Throughout] Respiratory 20 19 Rate Respiratory Rate [Anterior Bilateral Throughout] Respiratory Rate [Bilateral Throughout] Blood Pressure 138/69 138/73 141/65 O2 Sat by Pulse 100 100 100 Oximetry 04/24/16 04/24/16 04/24/16 05:13 05:30 06:00 Temperature Pulse Rate 85 81 82 Pulse Rate [ Anterior Bilateral Throughout] Pulse Rate [ Bilateral Throughout] Respiratory 18 21 19 Rate Respiratory Rate [Anterior Bilateral Throughout] Respiratory Rate [Bilateral Throughout] Blood Pressure 141/65 130/65 134/68 O2 Sat by Pulse 100 100 100 Oximetry 04/24/16 04/24/16 04/24/16 08:00 09:20 09:30 Temperature Pulse Rate 86 Pulse Rate [ 81 80 Anterior Bilateral Throughout] Pulse Rate [ Bilateral Throughout] Respiratory 22 Rate Respiratory 16 14 Rate [Anterior Bilateral Throughout] Respiratory Rate [Bilateral Throughout] Blood Pressure 140/69 O2 Sat by Pulse 100 Oximetry 04/24/16 10:28 Temperature Pulse Rate 80 Pulse Rate [ Anterior Bilateral Throughout] Pulse Rate [ Bilateral Throughout] Respiratory Rate Respiratory Rate [Anterior Bilateral Throughout] Respiratory Rate [Bilateral Throughout] Blood Pressure 151/73 O2 Sat by Pulse Oximetry - Labs 04/21/16 04:29 04/23/16 08:34
--- NOTE | 2016-04-24 11:23 | Progress Note ---
Assessment and Plan Acute respiratory failure. Currently on ventilator support, pending tracheostomy. No fever. Stroke.See MRI. AMS. No change at this point HTN Elevated INR. The patient to get vitamin K yesterday in order to proceed with tracheotomy. This scheduled for next week according to Dr. Andrade note. Recommendations Vitamin K therapy. Monitor respiratory status. Continue with ventilatory support while awaiting tracheostomy. tracheotomy Reassess for SVT, weaning status after tracheotomy completed Total critical care time 31 minutes. Subjective Date of service: 04/24/16 Principal diagnosis: CVA, acute respiratory failure Interval history: Patient remain relatively unresponsive, orally intubated. No change in his condition. Patient on mechanical ventilator Objective Vital Signs - 12hr 04/23/16 04/23/16 04/24/16 23:29 23:30 00:00 Temperature 98.1 F Pulse Rate 74 74 76 Pulse Rate [ Anterior Bilateral Throughout] Pulse Rate [ Bilateral Throughout] Respiratory 22 19 Rate Respiratory Rate [Anterior Bilateral Throughout] Respiratory Rate [Bilateral Throughout] Blood Pressure 136/73 128/67 133/70 O2 Sat by Pulse 100 100 100 Oximetry 04/24/16 04/24/16 04/24/16 00:30 00:39 00:41 Temperature 98.1 F Pulse Rate 76 77 Pulse Rate [ Anterior Bilateral Throughout] Pulse Rate [ Bilateral Throughout] Respiratory 17 22 Rate Respiratory Rate [Anterior Bilateral Throughout] Respiratory Rate [Bilateral Throughout] Blood Pressure 136/70 136/70 O2 Sat by Pulse 100 100 Oximetry 04/24/16 04/24/16 04/24/16 01:00 01:05 01:30 Temperature Pulse Rate 76 76 77 Pulse Rate [ Anterior Bilateral Throughout] Pulse Rate [ Bilateral Throughout] Respiratory 21 21 14 Rate Respiratory Rate [Anterior Bilateral Throughout] Respiratory Rate [Bilateral Throughout] Blood Pressure 140/72 140/72 146/75 O2 Sat by Pulse 100 100 100 Oximetry 04/24/16 04/24/16 04/24/16 02:00 02:05 02:18 Temperature Pulse Rate 80 Pulse Rate [ Anterior Bilateral Throughout] Pulse Rate [ 81 82 Bilateral Throughout] Respiratory 21 Rate Respiratory Rate [Anterior Bilateral Throughout] Respiratory 19 16 Rate [Bilateral Throughout] Blood Pressure 146/74 O2 Sat by Pulse 100 Oximetry 04/24/16 04/24/16 04/24/16 02:30 02:59 03:00 Temperature Pulse Rate 81 87 86 Pulse Rate [ Anterior Bilateral Throughout] Pulse Rate [ Bilateral Throughout] Respiratory 21 28 H 25 H Rate Respiratory Rate [Anterior Bilateral Throughout] Respiratory Rate [Bilateral Throughout] Blood Pressure 139/71 139/71 145/76 O2 Sat by Pulse 100 100 100 Oximetry 04/24/16 04/24/16 04/24/16 03:03 03:30 04:00 Temperature 99.7 F H Pulse Rate 81 86 82 Pulse Rate [ Anterior Bilateral Throughout] Pulse Rate [ Bilateral Throughout] Respiratory 22 14 20 Rate Respiratory Rate [Anterior Bilateral Throughout] Respiratory Rate [Bilateral Throughout] Blood Pressure 145/76 138/81 138/69 O2 Sat by Pulse 100 100 100 Oximetry 04/24/16 04/24/16 04/24/16 04:30 05:00 05:13 Temperature Pulse Rate 82 78 85 Pulse Rate [ Anterior Bilateral Throughout] Pulse Rate [ Bilateral Throughout] Respiratory 19 18 Rate Respiratory Rate [Anterior Bilateral Throughout] Respiratory Rate [Bilateral Throughout] Blood Pressure 138/73 141/65 141/65 O2 Sat by Pulse 100 100 100 Oximetry 04/24/16 04/24/16 04/24/16 05:30 06:00 08:00 Temperature Pulse Rate 81 82 86 Pulse Rate [ Anterior Bilateral Throughout] Pulse Rate [ Bilateral Throughout] Respiratory 21 19 22 Rate Respiratory Rate [Anterior Bilateral Throughout] Respiratory Rate [Bilateral Throughout] Blood Pressure 130/65 134/68 140/69 O2 Sat by Pulse 100 100 100 Oximetry 04/24/16 04/24/16 04/24/16 09:20 09:30 10:28 Temperature Pulse Rate 80 Pulse Rate [ 81 80 Anterior Bilateral Throughout] Pulse Rate [ Bilateral Throughout] Respiratory Rate Respiratory 16 14 Rate [Anterior Bilateral Throughout] Respiratory Rate [Bilateral Throughout] Blood Pressure 151/73 O2 Sat by Pulse Oximetry Constitutional: no acute distress, comatose Eyes: non-icteric ENT: other (orally intubated and sedated) Neck: supple Effort: normal Ascultation: Bilateral: clear, rhonchi (occasional) Cardiovascular: regular rate and rhythm, irregular rhythm Gastrointestinal: normoactive bowel sounds, soft, non-tender Extremities: no cyanosis, no edema Neurologic: other (GCS 4) CBC and BMP: 04/21/16 04:29 04/23/16 08:34 ABG, PT/INR, D-dimer: ABG POC ABG pH 7.464 (7.35-7.45) H 04/24/16 06:03 POC ABG pCO2 32.4 (35-45) L 04/24/16 06:03 POC ABG pO2 115 (80-105) H 04/24/16 06:03 POC ABG HCO3 23.3 04/24/16 06:03 POC ABG Total CO2 24 04/24/16 06:03 POC ABG O2 Sat 99 04/24/16 06:03 PT/INR, D-dimer PT 15.9 Sec. (12.2-14.9) H 04/23/16 10:45 INR 1.28 (0.87-1.13) H 04/23/16 10:45 Abnormal lab findings: Abnormal Labs 03/24/16 03/24/16 03/24/16 17:58 20:25 23:23 WBC RBC Hgb Hct MCV MCH MCHC RDW Plt Count Lymph % (Auto) [place] % (Auto) Lymph # [place] # Baso # Seg Neutrophils % Seg Neuts % (Manual) Lymphocytes % (Manual) Seg Neutrophils # Seg Neutrophils # Man Lymphocytes # (Manual) Monocytes # (Manual) PT INR APTT Heparin Anti-Xa Level POC ABG pH POC ABG pCO2 POC ABG pO2 Sodium 169 H* Potassium 3.5 L Chloride 130.3 H Carbon Dioxide BUN 28 H Creatinine 1.8 H Glucose POC Glucose 112 H Calcium Phosphorus Lactate Dehydrogenase Total Creatine Kinase NT-Pro-B Natriuret Pep Albumin Qfaah-8-Rrxpeylak Clgsz-2-Shgqnqtgs Beta Globulins PEP Interpretation Cholesterol 221 H LDL Cholesterol Direct 146 H Urine Creatinine 03/25/16 03/25/16 03/25/16 05:56 05:56 05:56 WBC 21.3 H RBC 6.32 H Hgb 16.7 H Hct 52.7 H MCV 83 L MCH 27 L MCHC RDW Plt Count Lymph % (Auto) [place] % (Auto) Lymph # [place] # Baso # Seg Neutrophils % Seg Neuts % (Manual) 91.0 H Lymphocytes % (Manual) 4.0 L Seg Neutrophils # Seg Neutrophils # Man 19.4 H Lymphocytes # (Manual) 0.9 L Monocytes # (Manual) 0.9 H PT INR APTT Heparin Anti-Xa Level POC ABG pH POC ABG pCO2 POC ABG pO2 Sodium 172 H* Potassium 3.5 L Chloride 130.4 H Carbon Dioxide BUN 29 H Creatinine 1.8 H Glucose 187 H POC Glucose Calcium Phosphorus Lactate Dehydrogenase 460 H Total Creatine Kinase NT-Pro-B Natriuret Pep Albumin Avlpo-5-Kcxdegfmp Llxky-9-Wmlvhfmhk Beta Globulins PEP Interpretation Cholesterol LDL Cholesterol Direct Urine Creatinine 03/25/16 03/25/16 03/25/16 07:55 12:19 13:00 WBC RBC Hgb Hct MCV MCH MCHC RDW Plt Count Lymph % (Auto) [place] % (Auto) Lymph # [place] # Baso # Seg Neutrophils % Seg Neuts % (Manual) Lymphocytes % (Manual) Seg Neutrophils # Seg Neutrophils # Man Lymphocytes # (Manual) Monocytes # (Manual) PT INR APTT Heparin Anti-Xa Level POC ABG pH POC ABG pCO2 POC ABG pO2 Sodium Potassium Chloride Carbon Dioxide BUN Creatinine Glucose POC Glucose 231 H 314 H Calcium Phosphorus Lactate Dehydrogenase Total Creatine Kinase NT-Pro-B Natriuret Pep Albumin 3.4 L Tmxfk-1-Zkdvxsrtt 0.4 H Zipnb-9-Krgkyjfac 1.1 H Beta Globulins 0.6 H PEP Interpretation see below H Cholesterol LDL Cholesterol Direct Urine Creatinine 03/25/16 03/25/16 03/26/16 16:41 22:45 08:32 WBC RBC Hgb Hct MCV MCH MCHC RDW Plt Count Lymph % (Auto) [place] % (Auto) Lymph # [place] # Baso # Seg Neutrophils % Seg Neuts % (Manual) Lymphocytes % (Manual) Seg Neutrophils # Seg Neutrophils # Man Lymphocytes # (Manual) Monocytes # (Manual) PT INR APTT Heparin Anti-Xa Level POC ABG pH POC ABG pCO2 POC ABG pO2 Sodium Potassium Chloride Carbon Dioxide BUN Creatinine Glucose POC Glucose 444 H 326 H 360 H Calcium Phosphorus Lactate Dehydrogenase Total Creatine Kinase NT-Pro-B Natriuret Pep Albumin Fpuvh-9-Szslvpgvz Lrhlr-9-Xxnkdrupf Beta Globulins PEP Interpretation Cholesterol LDL Cholesterol Direct Urine Creatinine 03/26/16 03/26/16 03/26/16 12:38 15:33 15:47 WBC RBC Hgb Hct MCV MCH MCHC RDW Plt Count Lymph % (Auto) [place] % (Auto) Lymph # [place] # Baso # Seg Neutrophils % Seg Neuts % (Manual) Lymphocytes % (Manual) Seg Neutrophils # Seg Neutrophils # Man Lymphocytes # (Manual) Monocytes # (Manual) PT INR APTT Heparin Anti-Xa Level POC ABG pH 7.511 H POC ABG pCO2 26.5 L POC ABG pO2 70 L Sodium Potassium Chloride Carbon Dioxide BUN Creatinine Glucose POC Glucose 280 H 174 H Calcium Phosphorus Lactate Dehydrogenase Total Creatine Kinase NT-Pro-B Natriuret Pep Albumin Lcpez-7-Wqqnjbcwm Iyofk-2-Tkmopnxnn Beta Globulins PEP Interpretation Cholesterol LDL Cholesterol Direct Urine Creatinine 03/26/16 03/26/16 03/26/16 16:47 16:47 18:51 WBC 14.0 H RBC 5.17 H Hgb Hct MCV MCH 26 L MCHC 31 L RDW Plt Count 139 L Lymph % (Auto) [place] % (Auto) Lymph # [place] # Baso # Seg Neutrophils % Seg Neuts % (Manual) Lymphocytes % (Manual) Seg Neutrophils # Seg Neutrophils # Man Lymphocytes # (Manual) Monocytes # (Manual) PT INR APTT Heparin Anti-Xa Level POC ABG pH POC ABG pCO2 33.9 L POC ABG pO2 150 H Sodium 164 H* Potassium 3.4 L Chloride 128.5 H Carbon Dioxide BUN 30 H Creatinine 2.2 H Glucose 121 H POC Glucose Calcium 8.1 L Phosphorus Lactate Dehydrogenase Total Creatine Kinase NT-Pro-B Natriuret Pep Albumin Bpxbz-7-Ygwgzpslb Esluf-0-Monxnhryh Beta Globulins PEP Interpretation Cholesterol LDL Cholesterol Direct Urine Creatinine 03/27/16 03/27/16 03/27/16 02:19 05:47 06:02 WBC RBC Hgb Hct MCV MCH MCHC RDW Plt Count Lymph % (Auto) [place] % (Auto) Lymph # [place] # Baso # Seg Neutrophils % Seg Neuts % (Manual) Lymphocytes % (Manual) Seg Neutrophils # Seg Neutrophils # Man Lymphocytes # (Manual) Monocytes # (Manual) PT INR APTT Heparin Anti-Xa Level POC ABG pH POC ABG pCO2 27.3 L 30.3 L POC ABG pO2 50 L 112 H Sodium 158 H Potassium Chloride 126.7 H Carbon Dioxide 20 L BUN 25 H Creatinine 1.7 H Glucose POC Glucose Calcium 7.0 L Phosphorus Lactate Dehydrogenase Total Creatine Kinase NT-Pro-B Natriuret Pep Albumin Nuwcg-0-Wrsqievhw Wqntp-8-Aysfnyuri Beta Globulins PEP Interpretation Cholesterol LDL Cholesterol Direct Urine Creatinine 03/27/16 03/27/16 03/27/16 07:51 09:20 11:45 WBC 14.2 H RBC Hgb Hct MCV 83 L MCH 27 L MCHC RDW Plt Count 113 L Lymph % (Auto) [place] % (Auto) Lymph # [place] # Baso # Seg Neutrophils % Seg Neuts % (Manual) Lymphocytes % (Manual) Seg Neutrophils # Seg Neutrophils # Man Lymphocytes # (Manual) Monocytes # (Manual) PT INR APTT Heparin Anti-Xa Level POC ABG pH POC ABG pCO2 POC ABG pO2 Sodium Potassium Chloride Carbon Dioxide BUN Creatinine Glucose POC Glucose 124 H 241 H Calcium Phosphorus Lactate Dehydrogenase Total Creatine Kinase NT-Pro-B Natriuret Pep Albumin Wnqoi-6-Fhlipawcm Jmrtt-6-Vohcnuoxp Beta Globulins PEP Interpretation Cholesterol LDL Cholesterol Direct Urine Creatinine 03/27/16 03/27/16 03/28/16 16:39 22:03 03:29 WBC RBC Hgb Hct MCV MCH MCHC RDW Plt Count Lymph % (Auto) [place] % (Auto) Lymph # [place] # Baso # Seg Neutrophils % Seg Neuts % (Manual) Lymphocytes % (Manual) Seg Neutrophils # Seg Neutrophils # Man Lymphocytes # (Manual) Monocytes # (Manual) PT INR APTT Heparin Anti-Xa Level POC ABG pH POC ABG pCO2 POC ABG pO2 Sodium Potassium Chloride Carbon Dioxide BUN Creatinine Glucose POC Glucose 266 H 167 H 241 H Calcium Phosphorus Lactate Dehydrogenase Total Creatine Kinase NT-Pro-B Natriuret Pep Albumin Cafuj-1-Nagrayget Ougkw-8-Bawdtmmmb Beta Globulins PEP Interpretation Cholesterol LDL Cholesterol Direct Urine Creatinine 03/28/16 03/28/16 03/28/16 05:00 05:00 05:00 WBC RBC Hgb Hct MCV 83 L MCH 27 L MCHC RDW Plt Count 106 L Lymph % (Auto) [place] % (Auto) 10.1 H Lymph # [place] # 1.0 H Baso # Seg Neutrophils % 75.1 H Seg Neuts % (Manual) Lymphocytes % (Manual) Seg Neutrophils # Seg Neutrophils # Man Lymphocytes # (Manual) Monocytes # (Manual) PT INR APTT Heparin Anti-Xa Level POC ABG pH POC ABG pCO2 POC ABG pO2 Sodium 147 H D Potassium 3.1 L D Chloride 112.3 H Carbon Dioxide 21 L BUN Creatinine Glucose 208 H POC Glucose Calcium 7.0 L Phosphorus 2.2 L Lactate Dehydrogenase Total Creatine Kinase NT-Pro-B Natriuret Pep Albumin Fxhxl-1-Poiomlxxr Pemge-6-Vrfhkyfkr Beta Globulins PEP Interpretation Cholesterol LDL Cholesterol Direct Urine Creatinine 03/28/16 03/28/16 03/28/16 05:14 08:41 10:56 WBC RBC Hgb Hct MCV MCH MCHC RDW Plt Count Lymph % (Auto) [place] % (Auto) Lymph # [place] # Baso # Seg Neutrophils % Seg Neuts % (Manual) Lymphocytes % (Manual) Seg Neutrophils # Seg Neutrophils # Man Lymphocytes # (Manual) Monocytes # (Manual) PT INR APTT Heparin Anti-Xa Level POC ABG pH 7.457 H POC ABG pCO2 29.7 L 27.7 L POC ABG pO2 Sodium Potassium Chloride Carbon Dioxide BUN Creatinine Glucose POC Glucose 228 H Calcium Phosphorus Lactate Dehydrogenase Total Creatine Kinase NT-Pro-B Natriuret Pep Albumin Vvdts-4-Ibpxqgfmo Utnrt-1-Dfxlxqmqu Beta Globulins PEP Interpretation Cholesterol LDL Cholesterol Direct Urine Creatinine 03/28/16 03/28/16 03/28/16 11:37 13:29 16:22 WBC RBC Hgb Hct MCV MCH MCHC RDW Plt Count Lymph % (Auto) [place] % (Auto) Lymph # [place] # Baso # Seg Neutrophils % Seg Neuts % (Manual) Lymphocytes % (Manual) Seg Neutrophils # Seg Neutrophils # Man Lymphocytes # (Manual) Monocytes # (Manual) PT INR APTT Heparin Anti-Xa Level POC ABG pH POC ABG pCO2 POC ABG pO2 Sodium Potassium Chloride Carbon Dioxide BUN Creatinine Glucose POC Glucose 226 H 200 H Calcium Phosphorus Lactate Dehydrogenase Total Creatine Kinase 356 H NT-Pro-B Natriuret Pep Albumin Sksrk-1-Dxldgolcy Zbswx-1-Mfbcxyirr Beta Globulins PEP Interpretation Cholesterol LDL Cholesterol Direct Urine Creatinine 03/28/16 03/29/16 03/29/16 21:48 04:50 04:50 WBC RBC Hgb 11.5 L Hct 35.3 L MCV 81 L MCH 26 L MCHC RDW Plt Count 97 L Lymph % (Auto) [place] % (Auto) 11.7 H Lymph # [place] # 1.1 H Baso # Seg Neutrophils % Seg Neuts % (Manual) Lymphocytes % (Manual) Seg Neutrophils # Seg Neutrophils # Man Lymphocytes # (Manual) Monocytes # (Manual) PT INR APTT Heparin Anti-Xa Level POC ABG pH POC ABG pCO2 POC ABG pO2 Sodium 136 L D Potassium 3.3 L Chloride Carbon Dioxide 20 L BUN Creatinine Glucose 386 H POC Glucose 188 H Calcium 6.8 L Phosphorus 1.6 L D Lactate Dehydrogenase Total Creatine Kinase NT-Pro-B Natriuret Pep Albumin Ndlgj-8-Zkcqimklf Fqjld-6-Mshzbmapn Beta Globulins PEP Interpretation Cholesterol LDL Cholesterol Direct Urine Creatinine 03/29/16 03/29/16 03/29/16 08:10 11:12 16:09 WBC RBC Hgb Hct MCV MCH MCHC RDW Plt Count Lymph % (Auto) [place] % (Auto) Lymph # [place] # Baso # Seg Neutrophils % Seg Neuts % (Manual) Lymphocytes % (Manual) Seg Neutrophils # Seg Neutrophils # Man Lymphocytes # (Manual) Monocytes # (Manual) PT INR APTT Heparin Anti-Xa Level POC ABG pH POC ABG pCO2 POC ABG pO2 Sodium Potassium Chloride Carbon Dioxide BUN Creatinine Glucose POC Glucose 230 H 180 H 46 L Calcium Phosphorus Lactate Dehydrogenase Total Creatine Kinase NT-Pro-B Natriuret Pep Albumin Baiqg-9-Wwgwonxeb Fsbsm-6-Pzscixrqu Beta Globulins PEP Interpretation Cholesterol LDL Cholesterol Direct Urine Creatinine 03/29/16 03/29/16 03/30/16 16:12 18:15 02:53 WBC RBC Hgb Hct MCV MCH MCHC RDW Plt Count Lymph % (Auto) [place] % (Auto) Lymph # [place] # Baso # Seg Neutrophils % Seg Neuts % (Manual) Lymphocytes % (Manual) Seg Neutrophils # Seg Neutrophils # Man Lymphocytes # (Manual) Monocytes # (Manual) PT INR APTT Heparin Anti-Xa Level POC ABG pH POC ABG pCO2 POC ABG pO2 Sodium Potassium Chloride Carbon Dioxide BUN Creatinine Glucose POC Glucose 52 L 118 H 130 H Calcium Phosphorus Lactate Dehydrogenase Total Creatine Kinase NT-Pro-B Natriuret Pep Albumin Tortr-7-Fodvijpwo Ywrwj-7-Vcedjlqso Beta Globulins PEP Interpretation Cholesterol LDL Cholesterol Direct Urine Creatinine 03/30/16 03/30/16 03/30/16 04:00 04:00 05:29 WBC RBC Hgb Hct MCV 81 L MCH 26 L MCHC RDW Plt Count 116 L Lymph % (Auto) 10.8 L [place] % (Auto) 13.1 H Lymph # 1.0 L [place] # 1.3 H Baso # Seg Neutrophils % 74.2 H Seg Neuts % (Manual) Lymphocytes % (Manual) Seg Neutrophils # Seg Neutrophils # Man Lymphocytes # (Manual) Monocytes # (Manual) PT INR APTT Heparin Anti-Xa Level POC ABG pH 7.522 H POC ABG pCO2 22.7 L POC ABG pO2 137 H Sodium 147 H D Potassium Chloride 115.5 H Carbon Dioxide 20 L BUN Creatinine Glucose 116 H POC Glucose Calcium 7.6 L Phosphorus 2.3 L D Lactate Dehydrogenase Total Creatine Kinase NT-Pro-B Natriuret Pep Albumin Rbtxj-1-Pnnjyosko Fwhfp-3-Dtvumkwcj Beta Globulins PEP Interpretation Cholesterol LDL Cholesterol Direct Urine Creatinine 03/30/16 03/30/16 03/30/16 05:47 08:05 08:59 WBC RBC Hgb Hct MCV MCH MCHC RDW Plt Count Lymph % (Auto) [place] % (Auto) Lymph # [place] # Baso # Seg Neutrophils % Seg Neuts % (Manual) Lymphocytes % (Manual) Seg Neutrophils # Seg Neutrophils # Man Lymphocytes # (Manual) Monocytes # (Manual) PT INR APTT Heparin Anti-Xa Level POC ABG pH POC ABG pCO2 26.2 L POC ABG pO2 115 H Sodium Potassium Chloride Carbon Dioxide BUN Creatinine Glucose POC Glucose 138 H 171 H Calcium Phosphorus Lactate Dehydrogenase Total Creatine Kinase NT-Pro-B Natriuret Pep Albumin Tlfgn-2-Yhrrhzjdx Obuum-6-Wnauommdt Beta Globulins PEP Interpretation Cholesterol LDL Cholesterol Direct Urine Creatinine 03/30/16 03/30/16 03/30/16 12:11 12:11 16:39 WBC RBC Hgb Hct MCV MCH MCHC RDW Plt Count Lymph % (Auto) [place] % (Auto) Lymph # [place] # Baso # Seg Neutrophils % Seg Neuts % (Manual) Lymphocytes % (Manual) Seg Neutrophils # Seg Neutrophils # Man Lymphocytes # (Manual) Monocytes # (Manual) PT INR APTT Heparin Anti-Xa Level POC ABG pH 7.476 H POC ABG pCO2 29.0 L POC ABG pO2 Sodium Potassium Chloride Carbon Dioxide BUN Creatinine Glucose POC Glucose 142 H 59 L Calcium Phosphorus Lactate Dehydrogenase Total Creatine Kinase NT-Pro-B Natriuret Pep Albumin Ydoks-6-Ajifxywen Xqajm-8-Mmafvimdr Beta Globulins PEP Interpretation Cholesterol LDL Cholesterol Direct Urine Creatinine 03/30/16 03/30/16 03/31/16 18:41 21:59 05:02 WBC RBC Hgb Hct MCV MCH MCHC RDW Plt Count Lymph % (Auto) [place] % (Auto) Lymph # [place] # Baso # Seg Neutrophils % Seg Neuts % (Manual) Lymphocytes % (Manual) Seg Neutrophils # Seg Neutrophils # Man Lymphocytes # (Manual) Monocytes # (Manual) PT INR APTT Heparin Anti-Xa Level POC ABG pH 7.519 H POC ABG pCO2 21.8 L POC ABG pO2 142 H Sodium Potassium Chloride Carbon Dioxide BUN Creatinine Glucose POC Glucose 145 H 154 H Calcium Phosphorus Lactate Dehydrogenase Total Creatine Kinase NT-Pro-B Natriuret Pep Albumin Yellr-2-Iqlbeodrs Hhzsh-6-Piifjhusr Beta Globulins PEP Interpretation Cholesterol LDL Cholesterol Direct Urine Creatinine 03/31/16 03/31/16 03/31/16 05:15 05:15 05:15 WBC 13.4 H RBC 5.21 H Hgb Hct MCV 81 L MCH 26 L MCHC RDW Plt Count Lymph % (Auto) 9.5 L [place] % (Auto) 14.0 H Lymph # [place] # 1.9 H Baso # Seg Neutrophils % 75.0 H Seg Neuts % (Manual) Lymphocytes % (Manual) Seg Neutrophils # 10.1 H Seg Neutrophils # Man Lymphocytes # (Manual) Monocytes # (Manual) PT INR APTT Heparin Anti-Xa Level POC ABG pH POC ABG pCO2 POC ABG pO2 Sodium Potassium Chloride 108.5 H Carbon Dioxide 19 L BUN Creatinine Glucose 188 H POC Glucose Calcium Phosphorus Lactate Dehydrogenase Total Creatine Kinase NT-Pro-B Natriuret Pep 1089 H Albumin Xercg-1-Lvilvmsny Gziol-5-Smdoybplj Beta Globulins PEP Interpretation Cholesterol LDL Cholesterol Direct Urine Creatinine 03/31/16 03/31/16 03/31/16 07:23 11:12 15:20 WBC RBC Hgb Hct MCV MCH MCHC RDW Plt Count Lymph % (Auto) [place] % (Auto) Lymph # [place] # Baso # Seg Neutrophils % Seg Neuts % (Manual) Lymphocytes % (Manual) Seg Neutrophils # Seg Neutrophils # Man Lymphocytes # (Manual) Monocytes # (Manual) PT INR APTT Heparin Anti-Xa Level POC ABG pH POC ABG pCO2 POC ABG pO2 Sodium Potassium Chloride Carbon Dioxide BUN Creatinine Glucose POC Glucose 233 H 228 H 208 H Calcium Phosphorus Lactate Dehydrogenase Total Creatine Kinase NT-Pro-B Natriuret Pep Albumin Ybfje-9-Rfroiklrj Uymvk-9-Kfjhwcqoe Beta Globulins PEP Interpretation Cholesterol LDL Cholesterol Direct Urine Creatinine 03/31/16 04/01/16 04/01/16 21:27 04:41 05:35 WBC 12.1 H RBC Hgb Hct MCV 81 L MCH 26 L MCHC RDW Plt Count Lymph % (Auto) 8.5 L [place] % (Auto) 14.0 H Lymph # 1.0 L [place] # 1.7 H Baso # Seg Neutrophils % 76.2 H Seg Neuts % (Manual) Lymphocytes % (Manual) Seg Neutrophils # 9.2 H Seg Neutrophils # Man Lymphocytes # (Manual) Monocytes # (Manual) PT INR APTT Heparin Anti-Xa Level POC ABG pH 7.455 H POC ABG pCO2 31.0 L POC ABG pO2 Sodium Potassium Chloride Carbon Dioxide BUN Creatinine Glucose POC Glucose 162 H Calcium Phosphorus Lactate Dehydrogenase Total Creatine Kinase NT-Pro-B Natriuret Pep Albumin Bmtpb-4-Kcdlodtly Lzxaw-2-Vvvbvvfdu Beta Globulins PEP Interpretation Cholesterol LDL Cholesterol Direct Urine Creatinine 04/01/16 04/01/16 04/01/16 05:35 08:44 12:49 WBC RBC Hgb Hct MCV MCH MCHC RDW Plt Count Lymph % (Auto) [place] % (Auto) Lymph # [place] # Baso # Seg Neutrophils % Seg Neuts % (Manual) Lymphocytes % (Manual) Seg Neutrophils # Seg Neutrophils # Man Lymphocytes # (Manual) Monocytes # (Manual) PT INR APTT Heparin Anti-Xa Level POC ABG pH POC ABG pCO2 POC ABG pO2 Sodium Potassium Chloride Carbon Dioxide BUN Creatinine Glucose 256 H POC Glucose 257 H 279 H Calcium 8.0 L Phosphorus Lactate Dehydrogenase Total Creatine Kinase NT-Pro-B Natriuret Pep 1205 H Albumin Smwtf-0-Tvpffwaum Adfez-3-Fhgrhlyyd Beta Globulins PEP Interpretation Cholesterol LDL Cholesterol Direct Urine Creatinine 04/01/16 04/02/16 04/02/16 18:12 00:42 04:17 WBC RBC Hgb Hct MCV MCH MCHC RDW Plt Count Lymph % (Auto) [place] % (Auto) Lymph # [place] # Baso # Seg Neutrophils % Seg Neuts % (Manual) Lymphocytes % (Manual) Seg Neutrophils # Seg Neutrophils # Man Lymphocytes # (Manual) Monocytes # (Manual) PT INR APTT Heparin Anti-Xa Level POC ABG pH 7.582 H POC ABG pCO2 26.8 L POC ABG pO2 Sodium Potassium Chloride Carbon Dioxide BUN Creatinine Glucose POC Glucose 168 H 282 H Calcium Phosphorus Lactate Dehydrogenase Total Creatine Kinase NT-Pro-B Natriuret Pep Albumin Yolpo-2-Wiytiacbg Qllrw-8-Nthouocet Beta Globulins PEP Interpretation Cholesterol LDL Cholesterol Direct Urine Creatinine 04/02/16 04/02/16 04/02/16 05:00 05:00 06:27 WBC 12.4 H RBC Hgb Hct MCV 81 L MCH 26 L MCHC RDW Plt Count Lymph % (Auto) 6.4 L [place] % (Auto) 13.3 H Lymph # 0.8 L [place] # 1.7 H Baso # Seg Neutrophils % 79.4 H Seg Neuts % (Manual) Lymphocytes % (Manual) Seg Neutrophils # 9.9 H Seg Neutrophils # Man Lymphocytes # (Manual) Monocytes # (Manual) PT INR APTT Heparin Anti-Xa Level POC ABG pH POC ABG pCO2 POC ABG pO2 Sodium 146 H Potassium Chloride Carbon Dioxide BUN Creatinine Glucose 334 H POC Glucose 317 H Calcium 8.0 L Phosphorus Lactate Dehydrogenase Total Creatine Kinase NT-Pro-B Natriuret Pep Albumin Tlqnl-6-Omvniqnjo Ikvvt-7-Xrildybrd Beta Globulins PEP Interpretation Cholesterol LDL Cholesterol Direct Urine Creatinine 04/02/16 04/02/16 04/02/16 11:51 13:10 17:24 WBC RBC Hgb Hct MCV MCH MCHC RDW Plt Count Lymph % (Auto) [place] % (Auto) Lymph # [place] # Baso # Seg Neutrophils % Seg Neuts % (Manual) Lymphocytes % (Manual) Seg Neutrophils # Seg Neutrophils # Man Lymphocytes # (Manual) Monocytes # (Manual) PT INR APTT Heparin Anti-Xa Level POC ABG pH 7.518 H POC ABG pCO2 POC ABG pO2 Sodium Potassium Chloride Carbon Dioxide BUN Creatinine Glucose POC Glucose 278 H 195 H Calcium Phosphorus Lactate Dehydrogenase Total Creatine Kinase NT-Pro-B Natriuret Pep Albumin Hbfdl-5-Molqkhjgm Sbgcb-9-Cegstuodb Beta Globulins PEP Interpretation Cholesterol LDL Cholesterol Direct Urine Creatinine 04/03/16 04/03/16 04/03/16 00:18 04:10 04:10 WBC 14.3 H RBC Hgb Hct MCV 81 L MCH 26 L MCHC RDW Plt Count Lymph % (Auto) 9.0 L [place] % (Auto) 10.7 H Lymph # [place] # 1.5 H Baso # 0.2 H Seg Neutrophils % 78.5 H Seg Neuts % (Manual) Lymphocytes % (Manual) Seg Neutrophils # 11.3 H Seg Neutrophils # Man Lymphocytes # (Manual) Monocytes # (Manual) PT INR APTT Heparin Anti-Xa Level POC ABG pH POC ABG pCO2 POC ABG pO2 Sodium 148 H Potassium Chloride 108.1 H Carbon Dioxide BUN 21 H Creatinine Glucose 227 H POC Glucose 144 H Calcium 8.2 L Phosphorus Lactate Dehydrogenase Total Creatine Kinase NT-Pro-B Natriuret Pep Albumin Iiedl-5-Xkrsnabiw Ugqtp-8-Zljvhmxrl Beta Globulins PEP Interpretation Cholesterol LDL Cholesterol Direct Urine Creatinine 04/03/16 04/03/16 04/04/16 11:14 17:10 04:00 WBC 14.5 H RBC Hgb Hct MCV 81 L MCH 26 L MCHC RDW Plt Count Lymph % (Auto) 7.2 L [place] % (Auto) 7.6 H Lymph # 1.0 L [place] # 1.1 H Baso # Seg Neutrophils % 84.5 H Seg Neuts % (Manual) Lymphocytes % (Manual) Seg Neutrophils # 12.3 H Seg Neutrophils # Man Lymphocytes # (Manual) Monocytes # (Manual) PT INR APTT Heparin Anti-Xa Level POC ABG pH POC ABG pCO2 POC ABG pO2 Sodium Potassium Chloride Carbon Dioxide BUN Creatinine Glucose POC Glucose 267 H 212 H Calcium Phosphorus Lactate Dehydrogenase Total Creatine Kinase NT-Pro-B Natriuret Pep Albumin Jisii-5-Ccjyqprxv Vklpt-0-Dopsqubeu Beta Globulins PEP Interpretation Cholesterol LDL Cholesterol Direct Urine Creatinine 04/04/16 04/04/16 04/04/16 05:00 09:55 09:55 WBC RBC Hgb 11.5 L Hct MCV MCH MCHC RDW Plt Count Lymph % (Auto) [place] % (Auto) Lymph # [place] # Baso # Seg Neutrophils % Seg Neuts % (Manual) Lymphocytes % (Manual) Seg Neutrophils # Seg Neutrophils # Man Lymphocytes # (Manual) Monocytes # (Manual) PT INR APTT 42.1 H Heparin Anti-Xa Level POC ABG pH POC ABG pCO2 POC ABG pO2 Sodium 146 H Potassium Chloride Carbon Dioxide BUN 22 H Creatinine Glucose 128 H POC Glucose Calcium Phosphorus Lactate Dehydrogenase Total Creatine Kinase NT-Pro-B Natriuret Pep Albumin Rfbyk-8-Vznphfwdk Haqhi-0-Tgyjgfbfe Beta Globulins PEP Interpretation Cholesterol LDL Cholesterol Direct Urine Creatinine 04/04/16 04/04/16 04/04/16 11:45 17:49 17:55 WBC RBC Hgb Hct MCV MCH MCHC RDW Plt Count Lymph % (Auto) [place] % (Auto) Lymph # [place] # Baso # Seg Neutrophils % Seg Neuts % (Manual) Lymphocytes % (Manual) Seg Neutrophils # Seg Neutrophils # Man Lymphocytes # (Manual) Monocytes # (Manual) PT INR APTT Heparin Anti-Xa Level 1.19 H POC ABG pH POC ABG pCO2 POC ABG pO2 Sodium Potassium Chloride Carbon Dioxide BUN Creatinine Glucose POC Glucose 231 H 186 H Calcium Phosphorus Lactate Dehydrogenase Total Creatine Kinase NT-Pro-B Natriuret Pep Albumin Kihpp-2-Hxxpuaalz Acayg-3-Rwfgrlyrt Beta Globulins PEP Interpretation Cholesterol LDL Cholesterol Direct Urine Creatinine 04/05/16 04/05/16 04/05/16 00:35 05:32 05:42 WBC RBC Hgb Hct MCV MCH MCHC RDW Plt Count Lymph % (Auto) [place] % (Auto) Lymph # [place] # Baso # Seg Neutrophils % Seg Neuts % (Manual) Lymphocytes % (Manual) Seg Neutrophils # Seg Neutrophils # Man Lymphocytes # (Manual) Monocytes # (Manual) PT INR APTT Heparin Anti-Xa Level POC ABG pH 7.491 H POC ABG pCO2 POC ABG pO2 Sodium Potassium Chloride Carbon Dioxide BUN Creatinine Glucose POC Glucose 192 H 242 H Calcium Phosphorus Lactate Dehydrogenase Total Creatine Kinase NT-Pro-B Natriuret Pep Albumin Pguew-2-Eojyyuthj Nhkmd-3-Eluhdazxd Beta Globulins PEP Interpretation Cholesterol LDL Cholesterol Direct Urine Creatinine 04/05/16 04/05/16 04/05/16 06:20 06:20 12:19 WBC 13.9 H RBC Hgb 11.6 L Hct MCV 81 L MCH 26 L MCHC RDW Plt Count Lymph % (Auto) 9.6 L [place] % (Auto) 8.7 H Lymph # [place] # 1.2 H Baso # Seg Neutrophils % 80.9 H Seg Neuts % (Manual) Lymphocytes % (Manual) Seg Neutrophils # 11.3 H Seg Neutrophils # Man Lymphocytes # (Manual) Monocytes # (Manual) PT INR APTT Heparin Anti-Xa Level POC ABG pH POC ABG pCO2 POC ABG pO2 Sodium 148 H Potassium Chloride Carbon Dioxide BUN 23 H Creatinine Glucose 242 H POC Glucose 187 H Calcium Phosphorus Lactate Dehydrogenase Total Creatine Kinase NT-Pro-B Natriuret Pep Albumin Qxogv-5-Rgtxwocnt Zbxst-1-Gkmkkcwmf Beta Globulins PEP Interpretation Cholesterol LDL Cholesterol Direct Urine Creatinine 04/05/16 04/05/16 04/06/16 17:10 23:45 05:23 WBC 13.0 H RBC Hgb Hct MCV 82 L MCH 26 L MCHC 31 L RDW Plt Count Lymph % (Auto) 6.7 L [place] % (Auto) 8.3 H Lymph # 0.9 L [place] # 1.1 H Baso # Seg Neutrophils % 84.6 H Seg Neuts % (Manual) Lymphocytes % (Manual) Seg Neutrophils # 11.0 H Seg Neutrophils # Man Lymphocytes # (Manual) Monocytes # (Manual) PT INR APTT Heparin Anti-Xa Level POC ABG pH POC ABG pCO2 POC ABG pO2 Sodium Potassium Chloride Carbon Dioxide BUN Creatinine Glucose POC Glucose 169 H 202 H Calcium Phosphorus Lactate Dehydrogenase Total Creatine Kinase NT-Pro-B Natriuret Pep Albumin Ceynh-5-Lfwsoetvl Lcudm-3-Gejmhrkwi Beta Globulins PEP Interpretation Cholesterol LDL Cholesterol Direct Urine Creatinine 04/06/16 04/06/16 04/06/16 05:23 05:23 06:11 WBC RBC Hgb Hct MCV MCH MCHC RDW Plt Count Lymph % (Auto) [place] % (Auto) Lymph # [place] # Baso # Seg Neutrophils % Seg Neuts % (Manual) Lymphocytes % (Manual) Seg Neutrophils # Seg Neutrophils # Man Lymphocytes # (Manual) Monocytes # (Manual) PT INR APTT Heparin Anti-Xa Level 0.21 L POC ABG pH POC ABG pCO2 POC ABG pO2 Sodium 153 H Potassium Chloride 111.3 H Carbon Dioxide BUN 22 H Creatinine Glucose 62 L POC Glucose 56 L Calcium Phosphorus Lactate Dehydrogenase Total Creatine Kinase NT-Pro-B Natriuret Pep Albumin Saamj-8-Fuqumgoii Xxqpo-2-Ormhwebpc Beta Globulins PEP Interpretation Cholesterol LDL Cholesterol Direct Urine Creatinine 04/06/16 04/06/16 04/06/16 06:52 11:36 14:58 WBC RBC Hgb Hct MCV MCH MCHC RDW Plt Count Lymph % (Auto) [place] % (Auto) Lymph # [place] # Baso # Seg Neutrophils % Seg Neuts % (Manual) Lymphocytes % (Manual) Seg Neutrophils # Seg Neutrophils # Man Lymphocytes # (Manual) Monocytes # (Manual) PT INR APTT Heparin Anti-Xa Level POC ABG pH POC ABG pCO2 POC ABG pO2 Sodium Potassium Chloride Carbon Dioxide BUN Creatinine Glucose POC Glucose 206 H 139 H 147 H Calcium Phosphorus Lactate Dehydrogenase Total Creatine Kinase NT-Pro-B Natriuret Pep Albumin Ucjlk-5-Wlnyseyxk Gudwd-0-Ytoixafsm Beta Globulins PEP Interpretation Cholesterol LDL Cholesterol Direct Urine Creatinine 04/06/16 04/06/16 04/06/16 16:03 21:18 23:53 WBC RBC Hgb Hct MCV MCH MCHC RDW Plt Count Lymph % (Auto) [place] % (Auto) Lymph # [place] # Baso # Seg Neutrophils % Seg Neuts % (Manual) Lymphocytes % (Manual) Seg Neutrophils # Seg Neutrophils # Man Lymphocytes # (Manual) Monocytes # (Manual) PT INR APTT Heparin Anti-Xa Level POC ABG pH POC ABG pCO2 POC ABG pO2 Sodium Potassium Chloride Carbon Dioxide BUN Creatinine Glucose POC Glucose 154 H 293 H 301 H Calcium Phosphorus Lactate Dehydrogenase Total Creatine Kinase NT-Pro-B Natriuret Pep Albumin Hytqy-7-Qjejvccix Ebcbx-7-Akvbpiobe Beta Globulins PEP Interpretation Cholesterol LDL Cholesterol Direct Urine Creatinine 04/07/16 04/07/16 04/07/16 02:30 05:11 05:11 WBC 12.5 H RBC Hgb 11.5 L Hct MCV 82 L MCH 26 L MCHC 31 L RDW Plt Count Lymph % (Auto) [place] % (Auto) Lymph # [place] # Baso # Seg Neutrophils % Seg Neuts % (Manual) Lymphocytes % (Manual) Seg Neutrophils # Seg Neutrophils # Man Lymphocytes # (Manual) Monocytes # (Manual) PT INR APTT Heparin Anti-Xa Level 0.11 L POC ABG pH POC ABG pCO2 POC ABG pO2 Sodium 150 H Potassium Chloride 109.5 H Carbon Dioxide BUN 28 H Creatinine Glucose 264 H POC Glucose Calcium Phosphorus Lactate Dehydrogenase Total Creatine Kinase NT-Pro-B Natriuret Pep Albumin Pecez-4-Naxggqbdz Fzdbd-4-Ypmleqqbz Beta Globulins PEP Interpretation Cholesterol LDL Cholesterol Direct Urine Creatinine 04/07/16 04/07/16 04/07/16 06:46 10:18 11:50 WBC RBC Hgb Hct MCV MCH MCHC RDW Plt Count Lymph % (Auto) [place] % (Auto) Lymph # [place] # Baso # Seg Neutrophils % Seg Neuts % (Manual) Lymphocytes % (Manual) Seg Neutrophils # Seg Neutrophils # Man Lymphocytes # (Manual) Monocytes # (Manual) PT 15.1 H INR 1.20 H APTT Heparin Anti-Xa Level POC ABG pH POC ABG pCO2 POC ABG pO2 Sodium Potassium Chloride Carbon Dioxide BUN Creatinine Glucose POC Glucose 259 H 288 H Calcium Phosphorus Lactate Dehydrogenase Total Creatine Kinase NT-Pro-B Natriuret Pep Albumin Vemoj-5-Jorvbywbl Yizzt-5-Uuyctxfsv Beta Globulins PEP Interpretation Cholesterol LDL Cholesterol Direct Urine Creatinine 04/07/16 04/08/16 04/08/16 17:58 01:25 06:49 WBC RBC Hgb Hct MCV MCH MCHC RDW Plt Count Lymph % (Auto) [place] % (Auto) Lymph # [place] # Baso # Seg Neutrophils % Seg Neuts % (Manual) Lymphocytes % (Manual) Seg Neutrophils # Seg Neutrophils # Man Lymphocytes # (Manual) Monocytes # (Manual) PT INR APTT Heparin Anti-Xa Level POC ABG pH POC ABG pCO2 POC ABG pO2 Sodium 156 H Potassium Chloride 114.7 H Carbon Dioxide BUN 33 H Creatinine Glucose 169 H POC Glucose 330 H 146 H Calcium Phosphorus Lactate Dehydrogenase Total Creatine Kinase NT-Pro-B Natriuret Pep Albumin Rlczn-8-Dptkughyf Zpeor-1-Ihapiiiqo Beta Globulins PEP Interpretation Cholesterol LDL Cholesterol Direct Urine Creatinine 04/08/16 04/08/16 04/08/16 07:34 10:28 10:28 WBC RBC Hgb Hct MCV MCH MCHC RDW Plt Count Lymph % (Auto) [place] % (Auto) Lymph # [place] # Baso # Seg Neutrophils % Seg Neuts % (Manual) Lymphocytes % (Manual) Seg Neutrophils # Seg Neutrophils # Man Lymphocytes # (Manual) Monocytes # (Manual) PT 15.5 H INR 1.24 H APTT Heparin Anti-Xa Level 0.24 L POC ABG pH POC ABG pCO2 POC ABG pO2 Sodium Potassium Chloride Carbon Dioxide BUN Creatinine Glucose POC Glucose 232 H Calcium Phosphorus Lactate Dehydrogenase Total Creatine Kinase NT-Pro-B Natriuret Pep Albumin Dlqzv-8-Hiwtzkbju Vspwo-2-Lavodjdmb Beta Globulins PEP Interpretation Cholesterol LDL Cholesterol Direct Urine Creatinine 04/08/16 04/08/16 04/09/16 11:36 15:38 00:01 WBC RBC Hgb Hct MCV MCH MCHC RDW Plt Count Lymph % (Auto) [place] % (Auto) Lymph # [place] # Baso # Seg Neutrophils % Seg Neuts % (Manual) Lymphocytes % (Manual) Seg Neutrophils # Seg Neutrophils # Man Lymphocytes # (Manual) Monocytes # (Manual) PT INR APTT Heparin Anti-Xa Level POC ABG pH POC ABG pCO2 POC ABG pO2 Sodium Potassium Chloride Carbon Dioxide BUN Creatinine Glucose POC Glucose 193 H 163 H 180 H Calcium Phosphorus Lactate Dehydrogenase Total Creatine Kinase NT-Pro-B Natriuret Pep Albumin Njupn-9-Pbsovsoke Dfqhn-8-Ajbwqsnkv Beta Globulins PEP Interpretation Cholesterol LDL Cholesterol Direct Urine Creatinine 04/09/16 04/09/16 04/09/16 06:17 06:42 06:42 WBC RBC Hgb Hct MCV MCH MCHC RDW Plt Count Lymph % (Auto) [place] % (Auto) Lymph # [place] # Baso # Seg Neutrophils % Seg Neuts % (Manual) Lymphocytes % (Manual) Seg Neutrophils # Seg Neutrophils # Man Lymphocytes # (Manual) Monocytes # (Manual) PT 17.4 H INR 1.43 H APTT Heparin Anti-Xa Level POC ABG pH POC ABG pCO2 POC ABG pO2 Sodium 153 H Potassium Chloride 113.2 H Carbon Dioxide BUN 29 H Creatinine Glucose 301 H POC Glucose 249 H Calcium 8.3 L Phosphorus Lactate Dehydrogenase Total Creatine Kinase NT-Pro-B Natriuret Pep Albumin Znuwv-5-Fglqglicm Rtfqp-5-Gcorbanjk Beta Globulins PEP Interpretation Cholesterol LDL Cholesterol Direct Urine Creatinine 04/09/16 04/09/16 04/09/16 07:37 11:26 15:45 WBC RBC Hgb Hct MCV MCH MCHC RDW Plt Count Lymph % (Auto) [place] % (Auto) Lymph # [place] # Baso # Seg Neutrophils % Seg Neuts % (Manual) Lymphocytes % (Manual) Seg Neutrophils # Seg Neutrophils # Man Lymphocytes # (Manual) Monocytes # (Manual) PT INR APTT Heparin Anti-Xa Level POC ABG pH POC ABG pCO2 POC ABG pO2 Sodium Potassium Chloride Carbon Dioxide BUN Creatinine Glucose POC Glucose 283 H 306 H 354 H Calcium Phosphorus Lactate Dehydrogenase Total Creatine Kinase NT-Pro-B Natriuret Pep Albumin Mzmnt-1-Lkpgdnzgh Ckptn-7-Jijfclsbh Beta Globulins PEP Interpretation Cholesterol LDL Cholesterol Direct Urine Creatinine 04/10/16 04/10/16 04/10/16 00:53 07:15 07:34 WBC RBC Hgb 11.3 L Hct MCV MCH MCHC RDW Plt Count Lymph % (Auto) [place] % (Auto) Lymph # [place] # Baso # Seg Neutrophils % Seg Neuts % (Manual) Lymphocytes % (Manual) Seg Neutrophils # Seg Neutrophils # Man Lymphocytes # (Manual) Monocytes # (Manual) PT INR APTT Heparin Anti-Xa Level POC ABG pH POC ABG pCO2 POC ABG pO2 Sodium Potassium Chloride Carbon Dioxide BUN Creatinine Glucose POC Glucose 323 H 311 H Calcium Phosphorus Lactate Dehydrogenase Total Creatine Kinase NT-Pro-B Natriuret Pep Albumin Bemax-2-Tmxasdkdc Nvsmu-2-Esypbasty Beta Globulins PEP Interpretation Cholesterol LDL Cholesterol Direct Urine Creatinine 1204/10/16 04/10/16 07:34 07:34 11:25 WBC RBC Hgb Hct MCV MCH MCHC RDW Plt Count Lymph % (Auto) [place] % (Auto) Lymph # [place] # Baso # Seg Neutrophils % Seg Neuts % (Manual) Lymphocytes % (Manual) Seg Neutrophils # Seg Neutrophils # Man Lymphocytes # (Manual) Monocytes # (Manual) PT 17.3 H INR 1.42 H APTT Heparin Anti-Xa Level POC ABG pH POC ABG pCO2 POC ABG pO2 Sodium 158 H Potassium Chloride 118.6 H Carbon Dioxide BUN 30 H Creatinine Glucose 330 H POC Glucose 335 H Calcium 8.3 L Phosphorus Lactate Dehydrogenase Total Creatine Kinase NT-Pro-B Natriuret Pep Albumin Fhvie-3-Zpziemyic Rewio-4-Jyeguozzi Beta Globulins PEP Interpretation Cholesterol LDL Cholesterol Direct Urine Creatinine 04/10/16 04/11/16 04/11/16 16:21 00:29 07:47 WBC RBC Hgb Hct MCV MCH MCHC RDW Plt Count Lymph % (Auto) [place] % (Auto) Lymph # [place] # Baso # Seg Neutrophils % Seg Neuts % (Manual) Lymphocytes % (Manual) Seg Neutrophils # Seg Neutrophils # Man Lymphocytes # (Manual) Monocytes # (Manual) PT 18.4 H INR 1.53 H APTT Heparin Anti-Xa Level POC ABG pH POC ABG pCO2 POC ABG pO2 Sodium Potassium Chloride Carbon Dioxide BUN Creatinine Glucose POC Glucose 230 H 162 H Calcium Phosphorus Lactate Dehydrogenase Total Creatine Kinase NT-Pro-B Natriuret Pep Albumin Zjjyh-5-Fssdljaws Rmnqm-5-Yrmzpkjlm Beta Globulins PEP Interpretation Cholesterol LDL Cholesterol Direct Urine Creatinine 04/11/16 04/11/16 04/12/16 07:47 11:22 04:54 WBC RBC Hgb 11.0 L Hct 35.0 L MCV MCH MCHC RDW Plt Count Lymph % (Auto) [place] % (Auto) Lymph # [place] # Baso # Seg Neutrophils % Seg Neuts % (Manual) Lymphocytes % (Manual) Seg Neutrophils # Seg Neutrophils # Man Lymphocytes # (Manual) Monocytes # (Manual) PT INR APTT Heparin Anti-Xa Level POC ABG pH POC ABG pCO2 POC ABG pO2 Sodium 155 H Potassium Chloride 114.5 H Carbon Dioxide BUN 23 H Creatinine Glucose 157 H POC Glucose 229 H Calcium Phosphorus Lactate Dehydrogenase Total Creatine Kinase NT-Pro-B Natriuret Pep Albumin Oetnl-9-Lismkuwkr Gzqcq-6-Wlbvnplgl Beta Globulins PEP Interpretation Cholesterol LDL Cholesterol Direct Urine Creatinine 04/12/16 04/12/16 04/12/16 04:54 04:54 05:57 WBC RBC Hgb Hct MCV MCH MCHC RDW Plt Count Lymph % (Auto) [place] % (Auto) Lymph # [place] # Baso # Seg Neutrophils % Seg Neuts % (Manual) Lymphocytes % (Manual) Seg Neutrophils # Seg Neutrophils # Man Lymphocytes # (Manual) Monocytes # (Manual) PT 22.5 H INR 1.98 H APTT Heparin Anti-Xa Level 0.19 L POC ABG pH POC ABG pCO2 POC ABG pO2 Sodium 156 H Potassium Chloride 115.4 H Carbon Dioxide BUN 23 H Creatinine Glucose 143 H POC Glucose 194 H Calcium Phosphorus Lactate Dehydrogenase Total Creatine Kinase NT-Pro-B Natriuret Pep Albumin Wtpee-7-Qdzcfhlzu Wysck-5-Nlsazmtzp Beta Globulins PEP Interpretation Cholesterol LDL Cholesterol Direct Urine Creatinine 04/12/16 04/12/16 04/12/16 12:34 19:01 23:30 WBC RBC Hgb Hct MCV MCH MCHC RDW Plt Count Lymph % (Auto) [place] % (Auto) Lymph # [place] # Baso # Seg Neutrophils % Seg Neuts % (Manual) Lymphocytes % (Manual) Seg Neutrophils # Seg Neutrophils # Man Lymphocytes # (Manual) Monocytes # (Manual) PT INR APTT Heparin Anti-Xa Level POC ABG pH POC ABG pCO2 POC ABG pO2 Sodium Potassium Chloride Carbon Dioxide BUN Creatinine Glucose POC Glucose 291 H 235 H 154 H Calcium Phosphorus Lactate Dehydrogenase Total Creatine Kinase NT-Pro-B Natriuret Pep Albumin Dtfdb-5-Hdpsanmna Hcpzr-4-Zmnjfbyvc Beta Globulins PEP Interpretation Cholesterol LDL Cholesterol Direct Urine Creatinine 04/13/16 04/13/16 04/13/16 05:16 05:16 05:28 WBC RBC Hgb Hct MCV MCH MCHC RDW Plt Count Lymph % (Auto) [place] % (Auto) Lymph # [place] # Baso # Seg Neutrophils % Seg Neuts % (Manual) Lymphocytes % (Manual) Seg Neutrophils # Seg Neutrophils # Man Lymphocytes # (Manual) Monocytes # (Manual) PT 27.0 H INR 2.49 H APTT Heparin Anti-Xa Level 0.20 L POC ABG pH POC ABG pCO2 POC ABG pO2 Sodium 150 H Potassium Chloride 110.5 H Carbon Dioxide BUN 21 H Creatinine Glucose 159 H POC Glucose 177 H Calcium Phosphorus Lactate Dehydrogenase Total Creatine Kinase NT-Pro-B Natriuret Pep Albumin Aater-5-Sopuaafhk Agopv-7-Nxluliwpv Beta Globulins PEP Interpretation Cholesterol LDL Cholesterol Direct Urine Creatinine 04/13/16 04/13/16 04/14/16 11:30 17:54 00:44 WBC RBC Hgb Hct MCV MCH MCHC RDW Plt Count Lymph % (Auto) [place] % (Auto) Lymph # [place] # Baso # Seg Neutrophils % Seg Neuts % (Manual) Lymphocytes % (Manual) Seg Neutrophils # Seg Neutrophils # Man Lymphocytes # (Manual) Monocytes # (Manual) PT INR APTT Heparin Anti-Xa Level POC ABG pH POC ABG pCO2 POC ABG pO2 Sodium Potassium Chloride Carbon Dioxide BUN Creatinine Glucose POC Glucose 181 H 251 H 237 H Calcium Phosphorus Lactate Dehydrogenase Total Creatine Kinase NT-Pro-B Natriuret Pep Albumin Ludkq-3-Fnrqzhdto Epoju-0-Vqdmndrhp Beta Globulins PEP Interpretation Cholesterol LDL Cholesterol Direct Urine Creatinine 04/14/16 04/14/16 04/14/16 05:00 05:42 05:42 WBC RBC Hgb Hct MCV MCH MCHC RDW Plt Count Lymph % (Auto) [place] % (Auto) Lymph # [place] # Baso # Seg Neutrophils % Seg Neuts % (Manual) Lymphocytes % (Manual) Seg Neutrophils # Seg Neutrophils # Man Lymphocytes # (Manual) Monocytes # (Manual) PT 30.3 H INR 2.88 H APTT Heparin Anti-Xa Level 0.27 L POC ABG pH POC ABG pCO2 POC ABG pO2 Sodium Potassium 3.5 L Chloride Carbon Dioxide BUN Creatinine Glucose 160 H POC Glucose Calcium 8.2 L Phosphorus Lactate Dehydrogenase Total Creatine Kinase NT-Pro-B Natriuret Pep Albumin Drdlv-4-Snvkqhgpz Htook-9-Bjhawmhxf Beta Globulins PEP Interpretation Cholesterol LDL Cholesterol Direct Urine Creatinine 04/14/16 04/14/16 04/14/16 06:02 06:16 09:18 WBC 12.3 H RBC Hgb 11.4 L Hct MCV 82 L MCH 26 L MCHC RDW Plt Count Lymph % (Auto) [place] % (Auto) Lymph # [place] # Baso # Seg Neutrophils % Seg Neuts % (Manual) Lymphocytes % (Manual) Seg Neutrophils # Seg Neutrophils # Man Lymphocytes # (Manual) Monocytes # (Manual) PT INR APTT Heparin Anti-Xa Level POC ABG pH POC ABG pCO2 POC ABG pO2 Sodium Potassium Chloride Carbon Dioxide BUN Creatinine Glucose POC Glucose 156 H 164 H Calcium Phosphorus Lactate Dehydrogenase Total Creatine Kinase NT-Pro-B Natriuret Pep Albumin Xbfoy-8-Hiovaldwg Ewxyc-6-Yudaatmdq Beta Globulins PEP Interpretation Cholesterol LDL Cholesterol Direct Urine Creatinine 04/14/16 04/15/16 04/15/16 13:58 01:07 06:04 WBC RBC Hgb Hct MCV MCH MCHC RDW Plt Count Lymph % (Auto) [place] % (Auto) Lymph # [place] # Baso # Seg Neutrophils % Seg Neuts % (Manual) Lymphocytes % (Manual) Seg Neutrophils # Seg Neutrophils # Man Lymphocytes # (Manual) Monocytes # (Manual) PT 24.9 H INR 2.25 H APTT Heparin Anti-Xa Level POC ABG pH POC ABG pCO2 POC ABG pO2 Sodium Potassium Chloride Carbon Dioxide BUN Creatinine Glucose POC Glucose 109 H 154 H Calcium Phosphorus Lactate Dehydrogenase Total Creatine Kinase NT-Pro-B Natriuret Pep Albumin Qvxaz-9-Vjeestiip Alqcr-7-Okohsjeaa Beta Globulins PEP Interpretation Cholesterol LDL Cholesterol Direct Urine Creatinine 04/15/16 04/15/16 04/16/16 06:08 12:41 00:38 WBC RBC Hgb Hct MCV MCH MCHC RDW Plt Count Lymph % (Auto) [place] % (Auto) Lymph # [place] # Baso # Seg Neutrophils % Seg Neuts % (Manual) Lymphocytes % (Manual) Seg Neutrophils # Seg Neutrophils # Man Lymphocytes # (Manual) Monocytes # (Manual) PT INR APTT Heparin Anti-Xa Level POC ABG pH POC ABG pCO2 POC ABG pO2 Sodium Potassium Chloride Carbon Dioxide BUN Creatinine Glucose POC Glucose 165 H 223 H 216 H Calcium Phosphorus Lactate Dehydrogenase Total Creatine Kinase NT-Pro-B Natriuret Pep Albumin Qkyqc-1-Jdkfieqbw Aylsu-6-Xehlxdoan Beta Globulins PEP Interpretation Cholesterol LDL Cholesterol Direct Urine Creatinine 04/16/16 04/16/16 04/16/16 05:45 07:09 14:00 WBC RBC Hgb Hct MCV MCH MCHC RDW Plt Count Lymph % (Auto) [place] % (Auto) Lymph # [place] # Baso # Seg Neutrophils % Seg Neuts % (Manual) Lymphocytes % (Manual) Seg Neutrophils # Seg Neutrophils # Man Lymphocytes # (Manual) Monocytes # (Manual) PT 19.4 H INR 1.64 H APTT Heparin Anti-Xa Level 0.10 L POC ABG pH POC ABG pCO2 POC ABG pO2 Sodium Potassium Chloride Carbon Dioxide BUN Creatinine Glucose POC Glucose 207 H 69 L Calcium Phosphorus Lactate Dehydrogenase Total Creatine Kinase NT-Pro-B Natriuret Pep Albumin Zraab-4-Ilmwnybyu Zmtrw-2-Hpnjastas Beta Globulins PEP Interpretation Cholesterol LDL Cholesterol Direct Urine Creatinine 04/16/16 04/16/16 04/16/16 17:40 17:52 19:38 WBC RBC Hgb Hct MCV MCH MCHC RDW Plt Count Lymph % (Auto) [place] % (Auto) Lymph # [place] # Baso # Seg Neutrophils % Seg Neuts % (Manual) Lymphocytes % (Manual) Seg Neutrophils # Seg Neutrophils # Man Lymphocytes # (Manual) Monocytes # (Manual) PT INR APTT Heparin Anti-Xa Level 0.26 L POC ABG pH 7.543 H 7.488 H POC ABG pCO2 26.3 L 30.3 L POC ABG pO2 55 L 203 H Sodium Potassium Chloride Carbon Dioxide BUN Creatinine Glucose POC Glucose Calcium Phosphorus Lactate Dehydrogenase Total Creatine Kinase NT-Pro-B Natriuret Pep Albumin Ocgbr-5-Krwmppsna Lfhty-0-Wzrvtwhdg Beta Globulins PEP Interpretation Cholesterol LDL Cholesterol Direct Urine Creatinine 04/17/16 04/17/16 04/17/16 00:04 05:10 05:36 WBC RBC Hgb Hct MCV MCH MCHC RDW Plt Count Lymph % (Auto) [place] % (Auto) Lymph # [place] # Baso # Seg Neutrophils % Seg Neuts % (Manual) Lymphocytes % (Manual) Seg Neutrophils # Seg Neutrophils # Man Lymphocytes # (Manual) Monocytes # (Manual) PT INR APTT Heparin Anti-Xa Level POC ABG pH POC ABG pCO2 32.7 L POC ABG pO2 68 L Sodium Potassium Chloride Carbon Dioxide BUN Creatinine Glucose POC Glucose 113 H 161 H Calcium Phosphorus Lactate Dehydrogenase Total Creatine Kinase NT-Pro-B Natriuret Pep Albumin Zcbvy-3-Drumsvlbc Npzdn-0-Kertqdtvx Beta Globulins PEP Interpretation Cholesterol LDL Cholesterol Direct Urine Creatinine 04/17/16 04/17/16 04/17/16 05:41 08:37 11:46 WBC RBC Hgb Hct MCV MCH MCHC RDW Plt Count Lymph % (Auto) [place] % (Auto) Lymph # [place] # Baso # Seg Neutrophils % Seg Neuts % (Manual) Lymphocytes % (Manual) Seg Neutrophils # Seg Neutrophils # Man Lymphocytes # (Manual) Monocytes # (Manual) PT 17.4 H INR 1.43 H APTT Heparin Anti-Xa Level POC ABG pH POC ABG pCO2 POC ABG pO2 Sodium Potassium Chloride Carbon Dioxide BUN Creatinine Glucose POC Glucose 154 H 138 H Calcium Phosphorus Lactate Dehydrogenase Total Creatine Kinase NT-Pro-B Natriuret Pep Albumin Rjylf-4-Pbjiluget Ezjew-9-Cgupiphsk Beta Globulins PEP Interpretation Cholesterol LDL Cholesterol Direct Urine Creatinine 04/17/16 04/17/16 04/17/16 12:17 12:17 21:20 WBC 16.5 H RBC 3.31 L Hgb 8.8 L Hct 26.9 L MCV 81 L MCH 27 L MCHC RDW 15.5 H Plt Count Lymph % (Auto) [place] % (Auto) Lymph # [place] # Baso # Seg Neutrophils % Seg Neuts % (Manual) Lymphocytes % (Manual) 3.0 L Seg Neutrophils # Seg Neutrophils # Man 10.1 H Lymphocytes # (Manual) 0.5 L Monocytes # (Manual) PT INR APTT Heparin Anti-Xa Level 0.14 L POC ABG pH POC ABG pCO2 POC ABG pO2 Sodium Potassium Chloride Carbon Dioxide 21 L BUN 38 H Creatinine 1.8 H D Glucose 131 H POC Glucose Calcium 7.6 L Phosphorus Lactate Dehydrogenase Total Creatine Kinase NT-Pro-B Natriuret Pep Albumin [id number] Ftopd-[id number] Beta Globulins PEP Interpretation Cholesterol LDL Cholesterol Direct Urine Creatinine 04/17/16 04/17/16 04/18/16 23:38 23:41 00:21 WBC RBC Hgb Hct MCV MCH MCHC RDW Plt Count Lymph % (Auto) [place] % (Auto) Lymph # [place] # Baso # Seg Neutrophils % Seg Neuts % (Manual) Lymphocytes % (Manual) Seg Neutrophils # Seg Neutrophils # Man Lymphocytes # (Manual) Monocytes # (Manual) PT INR APTT Heparin Anti-Xa Level POC ABG pH POC ABG pCO2 POC ABG pO2 Sodium Potassium Chloride Carbon Dioxide BUN Creatinine Glucose POC Glucose < 40 L < 40 L 223 H Calcium Phosphorus Lactate Dehydrogenase Total Creatine Kinase NT-Pro-B Natriuret Pep Albumin [id number] Bazhd-7-Qaauivxpg Beta Globulins PEP Interpretation Cholesterol LDL Cholesterol Direct Urine Creatinine 04/18/16 04/18/16 04/18/16 05:01 05:20 05:20 WBC 17.6 H RBC 3.44 L Hgb 9.1 L Hct 27.8 L MCV 81 L MCH 26 L MCHC RDW 15.5 H Plt Count Lymph % (Auto) 2.7 L [place] % (Auto) 8.3 H Lymph # 0.5 L [place] # 1.5 H Baso # Seg Neutrophils % 88.4 H Seg Neuts % (Manual) Lymphocytes % (Manual) Seg Neutrophils # 15.6 H Seg Neutrophils # Man Lymphocytes # (Manual) Monocytes # (Manual) PT 17.4 H INR 1.43 H APTT Heparin Anti-Xa Level POC ABG pH 7.528 H POC ABG pCO2 27.9 L POC ABG pO2 Sodium Potassium Chloride Carbon Dioxide BUN Creatinine Glucose POC Glucose Calcium Phosphorus Lactate Dehydrogenase Total Creatine Kinase NT-Pro-B Natriuret Pep Albumin Lcqnd-3-Ioyehmgfm Xnrbo-6-Lbidntmfu Beta Globulins PEP Interpretation Cholesterol LDL Cholesterol Direct Urine Creatinine 04/18/16 04/18/16 04/18/16 05:20 05:31 06:50 WBC RBC Hgb Hct MCV MCH MCHC RDW Plt Count Lymph % (Auto) [place] % (Auto) Lymph # [place] # Baso # Seg Neutrophils % Seg Neuts % (Manual) Lymphocytes % (Manual) Seg Neutrophils # Seg Neutrophils # Man Lymphocytes # (Manual) Monocytes # (Manual) PT INR APTT Heparin Anti-Xa Level POC ABG pH POC ABG pCO2 POC ABG pO2 Sodium Potassium 3.4 L Chloride Carbon Dioxide 21 L BUN 22 H Creatinine Glucose POC Glucose 61 L 124 H Calcium 8.0 L Phosphorus Lactate Dehydrogenase Total Creatine Kinase NT-Pro-B Natriuret Pep Albumin Hcuvz-4-Hmoptzfjd Yudsh-7-Pbtsulalx Beta Globulins PEP Interpretation Cholesterol LDL Cholesterol Direct Urine Creatinine 04/18/16 04/18/16 04/19/16 17:42 22:40 00:31 WBC RBC Hgb Hct MCV MCH MCHC RDW Plt Count Lymph % (Auto) [place] % (Auto) Lymph # [place] # Baso # Seg Neutrophils % Seg Neuts % (Manual) Lymphocytes % (Manual) Seg Neutrophils # Seg Neutrophils # Man Lymphocytes # (Manual) Monocytes # (Manual) PT INR APTT Heparin Anti-Xa Level < 0.10 L POC ABG pH POC ABG pCO2 POC ABG pO2 Sodium Potassium Chloride Carbon Dioxide BUN Creatinine Glucose POC Glucose 159 H 134 H Calcium Phosphorus Lactate Dehydrogenase Total Creatine Kinase NT-Pro-B Natriuret Pep Albumin Qbcvk-6-Fhwhckoai Pfcjd-6-Zsdbmttvo Beta Globulins PEP Interpretation Cholesterol LDL Cholesterol Direct Urine Creatinine 04/19/16 04/19/16 04/19/16 04:18 04:18 04:25 WBC 19.0 H RBC 3.58 L Hgb 9.3 L Hct 28.8 L MCV 80 L MCH 26 L MCHC RDW 15.5 H Plt Count Lymph % (Auto) 2.8 L [place] % (Auto) 7.4 H Lymph # 0.5 L [place] # 1.4 H Baso # Seg Neutrophils % 89.4 H Seg Neuts % (Manual) Lymphocytes % (Manual) Seg Neutrophils # 17.0 H Seg Neutrophils # Man Lymphocytes # (Manual) Monocytes # (Manual) PT INR APTT Heparin Anti-Xa Level POC ABG pH 7.527 H POC ABG pCO2 27.1 L POC ABG pO2 Sodium Potassium Chloride Carbon Dioxide BUN 22 H Creatinine Glucose 215 H POC Glucose Calcium 8.0 L Phosphorus Lactate Dehydrogenase Total Creatine Kinase NT-Pro-B Natriuret Pep Albumin Abste-7-Bybhzmyqk Facjn-4-Jeudaeqzs Beta Globulins PEP Interpretation Cholesterol LDL Cholesterol Direct Urine Creatinine 04/19/16 04/19/16 04/19/16 05:45 08:10 14:08 WBC RBC Hgb Hct MCV MCH MCHC RDW Plt Count Lymph % (Auto) [place] % (Auto) Lymph # [place] # Baso # Seg Neutrophils % Seg Neuts % (Manual) Lymphocytes % (Manual) Seg Neutrophils # Seg Neutrophils # Man Lymphocytes # (Manual) Monocytes # (Manual) PT 22.1 H INR 1.93 H APTT Heparin Anti-Xa Level 0.17 L POC ABG pH POC ABG pCO2 POC ABG pO2 Sodium Potassium Chloride Carbon Dioxide BUN Creatinine Glucose POC Glucose 196 H 318 H Calcium Phosphorus Lactate Dehydrogenase Total Creatine Kinase NT-Pro-B Natriuret Pep Albumin Mmdxg-9-Dyocejpeb Szimc-9-Bjelppcoc Beta Globulins PEP Interpretation Cholesterol LDL Cholesterol Direct Urine Creatinine 04/19/16 04/20/16 04/20/16 17:27 03:55 03:55 WBC 18.5 H RBC 3.19 L Hgb 8.4 L Hct 25.7 L MCV 80 L MCH 26 L MCHC RDW 15.9 H Plt Count Lymph % (Auto) 4.3 L [place] % (Auto) 10.1 H Lymph # 0.8 L [place] # 1.9 H Baso # Seg Neutrophils % 85.2 H Seg Neuts % (Manual) Lymphocytes % (Manual) Seg Neutrophils # 15.8 H Seg Neutrophils # Man Lymphocytes # (Manual) Monocytes # (Manual) PT 22.0 H INR 1.92 H APTT Heparin Anti-Xa Level 0.14 L POC ABG pH POC ABG pCO2 POC ABG pO2 Sodium Potassium Chloride Carbon Dioxide BUN Creatinine Glucose POC Glucose 230 H Calcium Phosphorus Lactate Dehydrogenase Total Creatine Kinase NT-Pro-B Natriuret Pep Albumin Mmbln-4-Ekjnalenu Bkjjz-5-Djmnnznph Beta Globulins PEP Interpretation Cholesterol LDL Cholesterol Direct Urine Creatinine 04/20/16 04/20/16 04/20/16 03:55 04:16 05:52 WBC RBC Hgb Hct MCV MCH MCHC RDW Plt Count Lymph % (Auto) [place] % (Auto) Lymph # [place] # Baso # Seg Neutrophils % Seg Neuts % (Manual) Lymphocytes % (Manual) Seg Neutrophils # Seg Neutrophils # Man Lymphocytes # (Manual) Monocytes # (Manual) PT INR APTT Heparin Anti-Xa Level POC ABG pH 7.474 H POC ABG pCO2 26.5 L POC ABG pO2 Sodium Potassium Chloride Carbon Dioxide 18 L BUN 38 H Creatinine 2.7 H D Glucose 159 H POC Glucose 214 H Calcium 8.0 L Phosphorus Lactate Dehydrogenase Total Creatine Kinase NT-Pro-B Natriuret Pep Albumin Rxxcq-8-Slrvyavho Xqcls-8-Fqahslvcl Beta Globulins PEP Interpretation Cholesterol LDL Cholesterol Direct Urine Creatinine 04/20/16 04/20/16 04/20/16 10:32 11:27 11:50 WBC RBC Hgb Hct MCV MCH MCHC RDW Plt Count Lymph % (Auto) [place] % (Auto) Lymph # [place] # Baso # Seg Neutrophils % Seg Neuts % (Manual) Lymphocytes % (Manual) Seg Neutrophils # Seg Neutrophils # Man Lymphocytes # (Manual) Monocytes # (Manual) PT INR APTT Heparin Anti-Xa Level POC ABG pH POC ABG pCO2 POC ABG pO2 Sodium Potassium Chloride Carbon Dioxide 20 L BUN 45 H Creatinine 3.0 H Glucose 215 H POC Glucose 248 H Calcium 8.0 L Phosphorus Lactate Dehydrogenase Total Creatine Kinase NT-Pro-B Natriuret Pep Albumin Tipjd-3-Jfnztijbo Flofg-3-Zjbahrlmu Beta Globulins PEP Interpretation Cholesterol LDL Cholesterol Direct Urine Creatinine 85.5 H 12/04/21/16 04/21/16 16:59 00:13 04:29 WBC RBC Hgb Hct MCV MCH MCHC RDW Plt Count Lymph % (Auto) [place] % (Auto) Lymph # [place] # Baso # Seg Neutrophils % Seg Neuts % (Manual) Lymphocytes % (Manual) Seg Neutrophils # Seg Neutrophils # Man Lymphocytes # (Manual) Monocytes # (Manual) PT 18.1 H INR 1.50 H APTT Heparin Anti-Xa Level 0.10 L POC ABG pH POC ABG pCO2 POC ABG pO2 Sodium Potassium Chloride Carbon Dioxide BUN Creatinine Glucose POC Glucose 312 H 287 H Calcium Phosphorus Lactate Dehydrogenase Total Creatine Kinase NT-Pro-B Natriuret Pep Albumin Fiyis-4-Khzimqmbi Kpxdz-7-Vtkpequeq Beta Globulins PEP Interpretation Cholesterol LDL Cholesterol Direct Urine Creatinine 04/21/16 04/21/16 04/21/16 04:29 04:29 04:55 WBC 15.4 H RBC 3.24 L Hgb 8.4 L Hct 25.6 L MCV 79 L MCH 26 L MCHC RDW 16.1 H Plt Count Lymph % (Auto) 6.8 L [place] % (Auto) 12.9 H Lymph # 1.0 L [place] # 2.0 H Baso # Seg Neutrophils % 79.8 H Seg Neuts % (Manual) Lymphocytes % (Manual) Seg Neutrophils # 12.3 H Seg Neutrophils # Man Lymphocytes # (Manual) Monocytes # (Manual) PT INR APTT Heparin Anti-Xa Level POC ABG pH 7.512 H POC ABG pCO2 25.4 L POC ABG pO2 Sodium 135 L Potassium Chloride Carbon Dioxide 18 L BUN 57 H Creatinine 3.9 H Glucose 202 H POC Glucose Calcium 8.0 L Phosphorus Lactate Dehydrogenase Total Creatine Kinase NT-Pro-B Natriuret Pep Albumin Gwsbr-1-Ulgglijyy Ydxrg-4-Weuycfvsh Beta Globulins PEP Interpretation Cholesterol LDL Cholesterol Direct Urine Creatinine 04/21/16 04/21/16 04/21/16 05:20 12:08 12:16 WBC RBC Hgb Hct MCV MCH MCHC RDW Plt Count Lymph % (Auto) [place] % (Auto) Lymph # [place] # Baso # Seg Neutrophils % Seg Neuts % (Manual) Lymphocytes % (Manual) Seg Neutrophils # Seg Neutrophils # Man Lymphocytes # (Manual) Monocytes # (Manual) PT INR APTT Heparin Anti-Xa Level 0.16 L POC ABG pH POC ABG pCO2 POC ABG pO2 Sodium Potassium Chloride Carbon Dioxide BUN Creatinine Glucose POC Glucose 203 H 221 H Calcium Phosphorus Lactate Dehydrogenase Total Creatine Kinase NT-Pro-B Natriuret Pep Albumin Lynrq-0-Boppnlfqd Yfczl-0-Xecutzjyz Beta Globulins PEP Interpretation Cholesterol LDL Cholesterol Direct Urine Creatinine 04/21/16 04/22/16 04/22/16 17:22 05:01 05:20 WBC RBC Hgb Hct MCV MCH MCHC RDW Plt Count Lymph % (Auto) [place] % (Auto) Lymph # [place] # Baso # Seg Neutrophils % Seg Neuts % (Manual) Lymphocytes % (Manual) Seg Neutrophils # Seg Neutrophils # Man Lymphocytes # (Manual) Monocytes # (Manual) PT 17.5 H INR 1.44 H APTT Heparin Anti-Xa Level POC ABG pH 7.460 H POC ABG pCO2 27.9 L POC ABG pO2 Sodium Potassium Chloride Carbon Dioxide BUN Creatinine Glucose POC Glucose 189 H Calcium Phosphorus Lactate Dehydrogenase Total Creatine Kinase NT-Pro-B Natriuret Pep Albumin Yjesw-3-Spzjfplzn Ewokb-7-Sqfgqaxrn Beta Globulins PEP Interpretation Cholesterol LDL Cholesterol Direct Urine Creatinine 04/22/16 04/22/16 04/22/16 05:43 06:40 08:08 WBC RBC Hgb Hct MCV MCH MCHC RDW Plt Count Lymph % (Auto) [place] % (Auto) Lymph # [place] # Baso # Seg Neutrophils % Seg Neuts % (Manual) Lymphocytes % (Manual) Seg Neutrophils # Seg Neutrophils # Man Lymphocytes # (Manual) Monocytes # (Manual) PT INR APTT Heparin Anti-Xa Level POC ABG pH POC ABG pCO2 POC ABG pO2 Sodium Potassium Chloride Carbon Dioxide BUN Creatinine Glucose POC Glucose 56 L 136 H 134 H Calcium Phosphorus Lactate Dehydrogenase Total Creatine Kinase NT-Pro-B Natriuret Pep Albumin Hvxok-8-Zbykjngut Ajzwn-0-Ewrfqybrg Beta Globulins PEP Interpretation Cholesterol LDL Cholesterol Direct Urine Creatinine 04/22/16 04/22/16 04/22/16 11:18 12:10 18:17 WBC RBC Hgb Hct MCV MCH MCHC RDW Plt Count Lymph % (Auto) [place] % (Auto) Lymph # [place] # Baso # Seg Neutrophils % Seg Neuts % (Manual) Lymphocytes % (Manual) Seg Neutrophils # Seg Neutrophils # Man Lymphocytes # (Manual) Monocytes # (Manual) PT INR APTT Heparin Anti-Xa Level 0.12 L POC ABG pH POC ABG pCO2 POC ABG pO2 Sodium Potassium Chloride Carbon Dioxide BUN Creatinine Glucose POC Glucose 142 H 227 H Calcium Phosphorus Lactate Dehydrogenase Total Creatine Kinase NT-Pro-B Natriuret Pep Albumin Bcnoa-2-Tbdynaqsv Ccwve-8-[place] Beta Globulins PEP Interpretation Cholesterol LDL Cholesterol Direct Urine Creatinine 04/22/16 04/22/16 04/23/16 22:28 23:47 04:49 WBC RBC Hgb Hct MCV MCH MCHC RDW Plt Count Lymph % (Auto) [place] % (Auto) Lymph # [place] # Baso # Seg Neutrophils % Seg Neuts % (Manual) Lymphocytes % (Manual) Seg Neutrophils # Seg Neutrophils # Man Lymphocytes # (Manual) Monocytes # (Manual) PT INR APTT Heparin Anti-Xa Level 0.16 L POC ABG pH POC ABG pCO2 32.6 L POC ABG pO2 122 H Sodium Potassium Chloride Carbon Dioxide BUN Creatinine Glucose POC Glucose 266 H Calcium Phosphorus Lactate Dehydrogenase Total Creatine Kinase NT-Pro-B Natriuret Pep Albumin Mijxh-0-Wksjmlhbx Dbeki-0-Vvlxgjdkv Beta Globulins PEP Interpretation Cholesterol LDL Cholesterol Direct Urine Creatinine 04/23/16 04/23/16 04/23/16 05:41 08:05 08:34 WBC RBC Hgb Hct MCV MCH MCHC RDW Plt Count Lymph % (Auto) [place] % (Auto) Lymph # [place] # Baso # Seg Neutrophils % Seg Neuts % (Manual) Lymphocytes % (Manual) Seg Neutrophils # Seg Neutrophils # Man Lymphocytes # (Manual) Monocytes # (Manual) PT INR APTT Heparin Anti-Xa Level POC ABG pH POC ABG pCO2 POC ABG pO2 Sodium Potassium Chloride 109.5 H Carbon Dioxide 21 L BUN 23 H Creatinine Glucose 227 H POC Glucose 227 H 224 H Calcium 8.2 L Phosphorus Lactate Dehydrogenase Total Creatine Kinase NT-Pro-B Natriuret Pep Albumin Qftpv-4-Wjuinrkmc Fsnva-0-Ltjpvuxgk Beta Globulins PEP Interpretation Cholesterol LDL Cholesterol Direct Urine Creatinine 04/23/16 04/23/16 04/23/16 10:45 11:37 22:49 WBC RBC Hgb Hct MCV MCH MCHC RDW Plt Count Lymph % (Auto) [place] % (Auto) Lymph # [place] # Baso # Seg Neutrophils % Seg Neuts % (Manual) Lymphocytes % (Manual) Seg Neutrophils # Seg Neutrophils # Man Lymphocytes # (Manual) Monocytes # (Manual) PT 15.9 H INR 1.28 H APTT Heparin Anti-Xa Level 0.12 L POC ABG pH POC ABG pCO2 POC ABG pO2 Sodium Potassium Chloride Carbon Dioxide BUN Creatinine Glucose POC Glucose 256 H Calcium Phosphorus Lactate Dehydrogenase Total Creatine Kinase NT-Pro-B Natriuret Pep Albumin Bfkdj-7-Kfbslhdxw Citfa-9-Konirajxg Beta Globulins PEP Interpretation Cholesterol LDL Cholesterol Direct Urine Creatinine 04/23/16 04/24/16 04/24/16 23:59 05:29 06:03 WBC RBC Hgb Hct MCV MCH MCHC RDW Plt Count Lymph % (Auto) [place] % (Auto) Lymph # [place] # Baso # Seg Neutrophils % Seg Neuts % (Manual) Lymphocytes % (Manual) Seg Neutrophils # Seg Neutrophils # Man Lymphocytes # (Manual) Monocytes # (Manual) PT INR APTT Heparin Anti-Xa Level POC ABG pH 7.464 H POC ABG pCO2 32.4 L POC ABG pO2 115 H Sodium Potassium Chloride Carbon Dioxide BUN Creatinine Glucose POC Glucose 176 H 256 H Calcium Phosphorus Lactate Dehydrogenase Total Creatine Kinase NT-Pro-B Natriuret Pep Albumin Ilcjp-3-Ohmzqcfaf Ydhlb-5-Rfgmwwxsn Beta Globulins PEP Interpretation Cholesterol LDL Cholesterol Direct Urine Creatinine 04/24/16 07:59 WBC RBC Hgb Hct MCV MCH MCHC RDW Plt Count Lymph % (Auto) [place] % (Auto) Lymph # [place] # Baso # Seg Neutrophils % Seg Neuts % (Manual) Lymphocytes % (Manual) Seg Neutrophils # Seg Neutrophils # Man Lymphocytes # (Manual) Monocytes # (Manual) PT INR APTT Heparin Anti-Xa Level 0.18 L POC ABG pH POC ABG pCO2 POC ABG pO2 Sodium Potassium Chloride Carbon Dioxide BUN Creatinine Glucose POC Glucose Calcium Phosphorus Lactate Dehydrogenase Total Creatine Kinase NT-Pro-B Natriuret Pep Albumin Edpbv-4-Oxlxzmzqr Jpyub-7-Ckuvebybj Beta Globulins PEP Interpretation Cholesterol LDL Cholesterol Direct Urine Creatinine
--- NOTE | 2016-04-24 17:11 | Progress Note ---
Assessment and Plan - Patient Problems (1) Altered mental status Current Visit: Yes Status: Acute Qualifiers: Altered mental status type: unspecified Qualified Code(s): R41.82 - Altered mental status, unspecified (2) CHF (congestive heart failure), NYHA class III Current Visit: Yes Status: Acute (3) CVA (cerebral vascular accident) Current Visit: Yes Status: Acute (4) DVT prophylaxis Current Visit: Yes Status: Acute Subjective Date of service: 04/24/16 Principal diagnosis: CVA, acute respiratory failure Objective - Constitutional Vitals: Vital Signs - 12hr 04/24/16 04/24/16 04/24/16 05:13 05:30 06:00 Temperature Pulse Rate 85 81 82 Pulse Rate [ Anterior Bilateral Throughout] Respiratory 18 21 19 Rate Respiratory Rate [Anterior Bilateral Throughout] Blood Pressure 141/65 130/65 134/68 O2 Sat by Pulse 100 100 100 Oximetry 04/24/16 04/24/16 04/24/16 06:07 06:30 07:00 Temperature Pulse Rate 82 75 87 Pulse Rate [ Anterior Bilateral Throughout] Respiratory 20 19 25 H Rate Respiratory Rate [Anterior Bilateral Throughout] Blood Pressure 134/68 135/64 143/71 O2 Sat by Pulse 100 100 100 Oximetry 04/24/16 04/24/16 04/24/16 07:30 08:00 08:30 Temperature 99.9 F H Pulse Rate 81 89 83 Pulse Rate [ Anterior Bilateral Throughout] Respiratory 22 22 21 Rate Respiratory Rate [Anterior Bilateral Throughout] Blood Pressure 140/67 150/74 136/63 O2 Sat by Pulse 100 100 100 Oximetry 04/24/16 04/24/16 04/24/16 09:00 09:20 09:30 Temperature Pulse Rate 83 81 Pulse Rate [ 81 80 Anterior Bilateral Throughout] Respiratory 21 23 Rate Respiratory 16 14 Rate [Anterior Bilateral Throughout] Blood Pressure 137/68 140/69 O2 Sat by Pulse 98 100 Oximetry 04/24/16 04/24/16 04/24/16 10:00 10:28 10:30 Temperature Pulse Rate 80 80 85 Pulse Rate [ Anterior Bilateral Throughout] Respiratory 14 14 Rate Respiratory Rate [Anterior Bilateral Throughout] Blood Pressure 151/73 151/73 149/71 O2 Sat by Pulse 99 100 Oximetry 04/24/16 04/24/16 04/24/16 11:00 11:31 12:00 Temperature 98.8 F Pulse Rate 77 74 79 Pulse Rate [ Anterior Bilateral Throughout] Respiratory 20 24 20 Rate Respiratory Rate [Anterior Bilateral Throughout] Blood Pressure 150/71 125/67 136/73 O2 Sat by Pulse 100 100 96 Oximetry 04/24/16 04/24/16 13:25 13:35 Temperature Pulse Rate Pulse Rate [ 79 80 Anterior Bilateral Throughout] Respiratory Rate Respiratory 14 15 Rate [Anterior Bilateral Throughout] Blood Pressure O2 Sat by Pulse Oximetry General appearance: Present: no acute distress, well-nourished - EENT Eyes: PERRL, EOM intact ENT: hearing intact, clear oral mucosa Ears: bilateral: normal - Neck Neck: supple, normal ROM - Respiratory Respiratory effort: normal Respiratory: bilateral: CTA - Breasts Breasts: normal - Cardiovascular Rhythm: regular Heart Sounds: Present: S1 & S2. Absent: gallop, rub Extremities: pulses intact, No edema, normal color, Full ROM - Gastrointestinal General gastrointestinal: Present: soft, non-tender, non-distended, normal bowel sounds - Genitourinary Male genitourinary: normal - Integumentary Integumentary: clear, warm, dry - Musculoskeletal Musculoskeletal: 1, strength equal bilaterally - Neurologic Neurologic: moves all extremities - Psychiatric Psychiatric: memory intact, appropriate mood/affect, intact judgment & insight - Labs CBC & Chem 7: 04/21/16 04:29 04/23/16 08:34 Labs: Abnormal lab results 04/23/16 04/23/16 04/24/16 Range/Units 22:49 23:59 05:29 Heparin Anti-Xa Level 0.12 L (0.3-0.7) U.I./ml POC ABG pH (7.35-7.45) POC ABG pCO2 (35-45) POC ABG pO2 (80-105) POC Glucose 176 H 256 H (70-105) 04/24/16 04/24/16 04/24/16 Range/Units 06:03 07:59 12:10 Heparin Anti-Xa Level 0.18 L (0.3-0.7) U.I./ml POC ABG pH 7.464 H (7.35-7.45) POC ABG pCO2 32.4 L (35-45) POC ABG pO2 115 H (80-105) POC Glucose 304 H (70-105)
[2016-04-24] MEDS: TYLENOL PO PRN ×2 (17:35→22:17)
[2016-04-25] MEDS: NOVOLOG SUB-Q SCH ×4 (00:59→18:28)
[2016-04-25] MEDS: DUONEB 0.5 MG-3 MG/3 ML SOLN IH SCH ×4 (02:21→20:20)
[2016-04-25] MEDS: MAXIPIME/NS 1 GM/100 ML 100 ML IV SCH ×3 (06:20→21:41)
[2016-04-25] MEDS: MILK OF MAGNESIA PO PRN (06:21)
[2016-04-25] MEDS: REGLAN IV PRN (06:21)
[2016-04-25] MEDS: HEPARIN/ 0.45% NACL-25,000 UNIT/500 ML 500 ML IV SCH ×2 (07:26→09:27)
[2016-04-25] MEDS: NORMODYNE PO SCH ×3 (08:00→20:53)
[2016-04-25] MEDS: PEPCID PO SCH ×2 (09:30→21:42)
[2016-04-25] MEDS: ZESTRIL PO SCH ×2 (09:30→21:42)
[2016-04-25] MEDS: BABY ASPIRIN PO SCH (09:30)
[2016-04-25] MEDS: KEPPRA PO SCH ×2 (09:31→21:42)
[2016-04-25] MEDS: NORVASC PO SCH (09:31)
[2016-04-25] MEDS: CORDARONE PO SCH (09:31)
[2016-04-25] MEDS: LEVEMIR SUB-Q SCH (09:33)
--- NOTE | 2016-04-25 12:41 | Progress Note ---
Assessment and Plan - Patient Problems (1) Altered mental status Current Visit: Yes Status: Acute Qualifiers: Altered mental status type: unspecified Qualified Code(s): R41.82 - Altered mental status, unspecified (2) CHF (congestive heart failure), NYHA class III Current Visit: Yes Status: Acute (3) CVA (cerebral vascular accident) Current Visit: Yes Status: Acute (4) DVT prophylaxis Current Visit: Yes Status: Acute Subjective Date of service: 04/25/16 Principal diagnosis: CVA, acute respiratory failure Interval history: Same condition Objective - Constitutional Vitals: Vital Signs - 12 04/25/16 04/25/16 04/25/16 01:00 01:02 01:30 Temperature Pulse Rate 72 69 71 Pulse Rate [ Anterior Bilateral Throughout] Pulse Rate [ Apical] Pulse Rate [ From Monitor] Respiratory 22 18 22 Rate Respiratory Rate [Anterior Bilateral Throughout] Blood Pressure 137/68 137/68 129/63 O2 Sat by Pulse 100 100 100 Oximetry 04/25/16 04/25/16 04/25/16 02:00 02:18 02:25 Temperature Pulse Rate 70 66 Pulse Rate [ 70 Anterior Bilateral Throughout] Pulse Rate [ Apical] Pulse Rate [ From Monitor] Respiratory 20 Rate Respiratory 14 Rate [Anterior Bilateral Throughout] Blood Pressure 128/64 128/64 O2 Sat by Pulse 100 100 Oximetry 04/25/16 04/25/16 04/25/16 02:30 02:41 02:59 Temperature Pulse Rate 73 69 67 Pulse Rate [ Anterior Bilateral Throughout] Pulse Rate [ Apical] Pulse Rate [ From Monitor] Respiratory 14 14 14 Rate Respiratory Rate [Anterior Bilateral Throughout] Blood Pressure 120/62 120/62 120/62 O2 Sat by Pulse 100 100 100 Oximetry 04/25/16 04/25/16 04/25/16 03:00 03:30 04:00 Temperature 99.9 F H Pulse Rate 72 67 72 Pulse Rate [ Anterior Bilateral Throughout] Pulse Rate [ Apical] Pulse Rate [ From Monitor] Respiratory 14 14 14 Rate Respiratory Rate [Anterior Bilateral Throughout] Blood Pressure 117/60 121/64 125/65 O2 Sat by Pulse 100 100 100 Oximetry 04/25/16 04/25/16 04/25/16 04:30 05:00 05:01 Temperature Pulse Rate 75 82 Pulse Rate [ Anterior Bilateral Throughout] Pulse Rate [ Apical] Pulse Rate [ 75 From Monitor] Respiratory 14 Rate Respiratory Rate [Anterior Bilateral Throughout] Blood Pressure 128/67 122/77 122/77 O2 Sat by Pulse 100 100 100 Oximetry 04/25/16 04/25/16 04/25/16 05:31 05:53 06:01 Temperature Pulse Rate 77 81 79 Pulse Rate [ Anterior Bilateral Throughout] Pulse Rate [ Apical] Pulse Rate [ From Monitor] Respiratory 13 21 15 Rate Respiratory Rate [Anterior Bilateral Throughout] Blood Pressure 122/77 122/77 122/77 O2 Sat by Pulse 99 100 99 Oximetry 04/25/16 04/25/16 04/25/16 06:30 07:03 08:00 Temperature 97.7 F Pulse Rate 77 88 Pulse Rate [ Anterior Bilateral Throughout] Pulse Rate [ 75 Apical] Pulse Rate [ 75 From Monitor] Respiratory 16 23 Rate Respiratory Rate [Anterior Bilateral Throughout] Blood Pressure 133/67 155/78 O2 Sat by Pulse 99 98 Oximetry 04/25/16 04/25/16 04/25/16 09:16 09:30 11:54 Temperature 99.9 F H Pulse Rate 83 83 Pulse Rate [ Anterior Bilateral Throughout] Pulse Rate [ Apical] Pulse Rate [ From Monitor] Respiratory 21 Rate Respiratory Rate [Anterior Bilateral Throughout] Blood Pressure 136/80 O2 Sat by Pulse 97 Oximetry - Labs CBC & Chem 7: 04/21/16 04:29 04/23/16 08:34 Labs: Abnormal lab results 04/24/16 04/24/16 04/25/16 Range/Units 12:10 17:17 00:52 Heparin Anti-Xa Level (0.3-0.7) U.I./ml POC Glucose 304 H 325 H 212 H (70-105) 04/25/16 04/25/16 04/25/16 Range/Units 06:40 06:44 11:40 Heparin Anti-Xa Level 0.11 L (0.3-0.7) U.I./ml POC Glucose 184 H 206 H (70-105)
--- NOTE | 2016-04-25 14:56 | Progress Note ---
Assessment and Plan Acute respiratory failure. Currently on ventilator support, pending tracheostomy. No fever. Stroke.See MRI. AMS. No change at this point HTN Elevated INR. The patient to get vitamin K yesterday in order to proceed with tracheotomy. This scheduled for next week according to Dr. Andrade note. Recommendations Vitamin K therapy. Monitor respiratory status. Continue with ventilatory support while awaiting tracheostomy. tracheotomy Reassess for SVT, weaning status after tracheotomy completed Total critical care time 31 minutes. Subjective Date of service: 04/25/16 Principal diagnosis: CVA, acute respiratory failure Interval history: Patient remain relatively unresponsive, orally intubated. No change in his condition. Patient on mechanical ventilator Objective Vital Signs - 12hr 04/25/16 04/25/16 04/25/16 02:59 03:00 03:30 Temperature Pulse Rate 67 72 67 Pulse Rate [ Anterior Bilateral Throughout] Pulse Rate [ Apical] Pulse Rate [ From Monitor] Respiratory 14 14 14 Rate Respiratory Rate [Anterior Bilateral Throughout] Blood Pressure 120/62 117/60 121/64 O2 Sat by Pulse 100 100 100 Oximetry 04/25/16 04/25/16 04/25/16 04:00 04:30 05:00 Temperature 99.9 F H Pulse Rate 72 75 82 Pulse Rate [ Anterior Bilateral Throughout] Pulse Rate [ Apical] Pulse Rate [ 75 From Monitor] Respiratory 14 14 Rate Respiratory Rate [Anterior Bilateral Throughout] Blood Pressure 125/65 128/67 122/77 O2 Sat by Pulse 100 100 100 Oximetry 04/25/16 04/25/16 04/25/16 05:01 05:31 05:53 Temperature Pulse Rate 77 81 Pulse Rate [ Anterior Bilateral Throughout] Pulse Rate [ Apical] Pulse Rate [ From Monitor] Respiratory 13 21 Rate Respiratory Rate [Anterior Bilateral Throughout] Blood Pressure 122/77 122/77 122/77 O2 Sat by Pulse 100 99 100 Oximetry 04/25/16 04/25/16 04/25/16 06:01 06:30 06:59 Temperature Pulse Rate 79 77 76 Pulse Rate [ Anterior Bilateral Throughout] Pulse Rate [ Apical] Pulse Rate [ From Monitor] Respiratory 15 16 16 Rate Respiratory Rate [Anterior Bilateral Throughout] Blood Pressure 122/77 133/67 133/67 O2 Sat by Pulse 99 99 99 Oximetry 04/25/16 04/25/16 04/25/16 07:00 07:03 07:30 Temperature 97.7 F Pulse Rate 79 77 Pulse Rate [ Anterior Bilateral Throughout] Pulse Rate [ Apical] Pulse Rate [ From Monitor] Respiratory 11 L 19 Rate Respiratory Rate [Anterior Bilateral Throughout] Blood Pressure 128/64 129/67 O2 Sat by Pulse 100 100 Oximetry 04/25/16 04/25/16 04/25/16 08:00 08:01 08:15 Temperature Pulse Rate 88 86 Pulse Rate [ 78 79 Anterior Bilateral Throughout] Pulse Rate [ 75 Apical] Pulse Rate [ 75 From Monitor] Respiratory 23 20 Rate Respiratory 21 18 Rate [Anterior Bilateral Throughout] Blood Pressure 155/78 155/78 O2 Sat by Pulse 98 100 Oximetry 04/25/16 04/25/16 04/25/16 08:30 09:00 09:16 Temperature Pulse Rate 79 86 83 Pulse Rate [ Anterior Bilateral Throughout] Pulse Rate [ Apical] Pulse Rate [ From Monitor] Respiratory 14 23 21 Rate Respiratory Rate [Anterior Bilateral Throughout] Blood Pressure 135/67 136/70 O2 Sat by Pulse 100 100 97 Oximetry 04/25/16 04/25/16 04/25/16 09:30 10:00 10:30 Temperature Pulse Rate 84 76 80 Pulse Rate [ Anterior Bilateral Throughout] Pulse Rate [ Apical] Pulse Rate [ From Monitor] Respiratory 19 23 17 Rate Respiratory Rate [Anterior Bilateral Throughout] Blood Pressure 130/65 130/66 133/73 O2 Sat by Pulse 98 98 100 Oximetry 04/25/16 04/25/16 04/25/16 11:00 11:30 11:54 Temperature 99.9 F H Pulse Rate 83 81 Pulse Rate [ Anterior Bilateral Throughout] Pulse Rate [ Apical] Pulse Rate [ From Monitor] Respiratory 29 H 26 H Rate Respiratory Rate [Anterior Bilateral Throughout] Blood Pressure 134/72 128/68 O2 Sat by Pulse 99 98 Oximetry 04/25/16 04/25/16 04/25/16 12:00 12:30 13:00 Temperature Pulse Rate 80 79 74 Pulse Rate [ Anterior Bilateral Throughout] Pulse Rate [ Apical] Pulse Rate [ From Monitor] Respiratory 22 22 21 Rate Respiratory Rate [Anterior Bilateral Throughout] Blood Pressure 139/74 128/65 117/61 O2 Sat by Pulse 100 99 100 Oximetry 04/25/16 04/25/16 04/25/16 13:53 14:00 14:15 Temperature Pulse Rate 77 Pulse Rate [ 77 77 Anterior Bilateral Throughout] Pulse Rate [ Apical] Pulse Rate [ From Monitor] Respiratory Rate Respiratory 18 18 Rate [Anterior Bilateral Throughout] Blood Pressure 136/75 O2 Sat by Pulse Oximetry Constitutional: no acute distress, comatose Eyes: non-icteric ENT: other (orally intubated and sedated) Neck: supple Effort: normal Ascultation: Bilateral: clear, rhonchi (occasional) Percussion: Bilateral: not dull Cardiovascular: regular rate and rhythm, irregular rhythm Gastrointestinal: normoactive bowel sounds, soft, non-tender Extremities: no cyanosis, no edema Neurologic: other (GCS 4) CBC and BMP: 04/21/16 04:29 04/23/16 08:34 ABG, PT/INR, D-dimer: ABG POC ABG pH 7.464 (7.35-7.45) H 04/24/16 06:03 POC ABG pCO2 32.4 (35-45) L 04/24/16 06:03 POC ABG pO2 115 (80-105) H 04/24/16 06:03 POC ABG HCO3 23.3 04/24/16 06:03 POC ABG Total CO2 24 04/24/16 06:03 POC ABG O2 Sat 99 04/24/16 06:03 PT/INR, D-dimer PT 15.9 Sec. (12.2-14.9) H 04/23/16 10:45 INR 1.28 (0.87-1.13) H 04/23/16 10:45 Abnormal lab findings: Abnormal Labs 03/24/16 03/24/16 03/24/16 17:58 20:25 23:23 WBC RBC Hgb Hct MCV MCH MCHC RDW Plt Count Lymph % (Auto) [place] % (Auto) Lymph # [place] # Baso # Seg Neutrophils % Seg Neuts % (Manual) Lymphocytes % (Manual) Seg Neutrophils # Seg Neutrophils # Man Lymphocytes # (Manual) Monocytes # (Manual) PT INR APTT Heparin Anti-Xa Level POC ABG pH POC ABG pCO2 POC ABG pO2 Sodium 169 H* Potassium 3.5 L Chloride 130.3 H Carbon Dioxide BUN 28 H Creatinine 1.8 H Glucose POC Glucose 112 H Calcium Phosphorus Lactate Dehydrogenase Total Creatine Kinase NT-Pro-B Natriuret Pep Albumin Llavo-8-Udrdpayqr Riboe-7-Oouxnbmsv Beta Globulins PEP Interpretation Cholesterol 221 H LDL Cholesterol Direct 146 H Urine Creatinine 11/03/25/16 03/25/16 05:56 05:56 05:56 WBC 21.3 H RBC 6.32 H Hgb 16.7 H Hct 52.7 H MCV 83 L MCH 27 L MCHC RDW Plt Count Lymph % (Auto) [place] % (Auto) Lymph # [place] # Baso # Seg Neutrophils % Seg Neuts % (Manual) 91.0 H Lymphocytes % (Manual) 4.0 L Seg Neutrophils # Seg Neutrophils # Man 19.4 H Lymphocytes # (Manual) 0.9 L Monocytes # (Manual) 0.9 H PT INR APTT Heparin Anti-Xa Level POC ABG pH POC ABG pCO2 POC ABG pO2 Sodium 172 H* Potassium 3.5 L Chloride 130.4 H Carbon Dioxide BUN 29 H Creatinine 1.8 H Glucose 187 H POC Glucose Calcium Phosphorus Lactate Dehydrogenase 460 H Total Creatine Kinase NT-Pro-B Natriuret Pep Albumin Fnyka-1-Odhkbilgh Zaipr-2-Hiejhtgpq Beta Globulins PEP Interpretation Cholesterol LDL Cholesterol Direct Urine Creatinine 03/25/16 03/25/16 03/25/16 07:55 12:19 13:00 WBC RBC Hgb Hct MCV MCH MCHC RDW Plt Count Lymph % (Auto) [place] % (Auto) Lymph # [place] # Baso # Seg Neutrophils % Seg Neuts % (Manual) Lymphocytes % (Manual) Seg Neutrophils # Seg Neutrophils # Man Lymphocytes # (Manual) Monocytes # (Manual) PT INR APTT Heparin Anti-Xa Level POC ABG pH POC ABG pCO2 POC ABG pO2 Sodium Potassium Chloride Carbon Dioxide BUN Creatinine Glucose POC Glucose 231 H 314 H Calcium Phosphorus Lactate Dehydrogenase Total Creatine Kinase NT-Pro-B Natriuret Pep Albumin 3.4 L Aarfy-3-Ggqmzcwpy 0.4 H Whbnt-7-Zbyouuzfe 1.1 H Beta Globulins 0.6 H PEP Interpretation see below H Cholesterol LDL Cholesterol Direct Urine Creatinine 03/25/16 03/25/16 03/26/16 16:41 22:45 08:32 WBC RBC Hgb Hct MCV MCH MCHC RDW Plt Count Lymph % (Auto) [place] % (Auto) Lymph # [place] # Baso # Seg Neutrophils % Seg Neuts % (Manual) Lymphocytes % (Manual) Seg Neutrophils # Seg Neutrophils # Man Lymphocytes # (Manual) Monocytes # (Manual) PT INR APTT Heparin Anti-Xa Level POC ABG pH POC ABG pCO2 POC ABG pO2 Sodium Potassium Chloride Carbon Dioxide BUN Creatinine Glucose POC Glucose 444 H 326 H 360 H Calcium Phosphorus Lactate Dehydrogenase Total Creatine Kinase NT-Pro-B Natriuret Pep Albumin Zerhi-9-Yzmobhxdw Fiaav-5-Xtiypdrxa Beta Globulins PEP Interpretation Cholesterol LDL Cholesterol Direct Urine Creatinine 03/26/16 03/26/16 03/26/16 12:38 15:33 15:47 WBC RBC Hgb Hct MCV MCH MCHC RDW Plt Count Lymph % (Auto) [place] % (Auto) Lymph # [place] # Baso # Seg Neutrophils % Seg Neuts % (Manual) Lymphocytes % (Manual) Seg Neutrophils # Seg Neutrophils # Man Lymphocytes # (Manual) Monocytes # (Manual) PT INR APTT Heparin Anti-Xa Level POC ABG pH 7.511 H POC ABG pCO2 26.5 L POC ABG pO2 70 L Sodium Potassium Chloride Carbon Dioxide BUN Creatinine Glucose POC Glucose 280 H 174 H Calcium Phosphorus Lactate Dehydrogenase Total Creatine Kinase NT-Pro-B Natriuret Pep Albumin Zihyl-9-Rzmiwpgop Xcayg-6-Qyrfiotlh Beta Globulins PEP Interpretation Cholesterol LDL Cholesterol Direct Urine Creatinine 03/26/16 03/26/16 03/26/16 16:47 16:47 18:51 WBC 14.0 H RBC 5.17 H Hgb Hct MCV MCH 26 L MCHC 31 L RDW Plt Count 139 L Lymph % (Auto) [place] % (Auto) Lymph # [place] # Baso # Seg Neutrophils % Seg Neuts % (Manual) Lymphocytes % (Manual) Seg Neutrophils # Seg Neutrophils # Man Lymphocytes # (Manual) Monocytes # (Manual) PT INR APTT Heparin Anti-Xa Level POC ABG pH POC ABG pCO2 33.9 L POC ABG pO2 150 H Sodium 164 H* Potassium 3.4 L Chloride 128.5 H Carbon Dioxide BUN 30 H Creatinine 2.2 H Glucose 121 H POC Glucose Calcium 8.1 L Phosphorus Lactate Dehydrogenase Total Creatine Kinase NT-Pro-B Natriuret Pep Albumin Ddgye-9-Nwsraxcui Tvrzc-8-Vxyykvojb Beta Globulins PEP Interpretation Cholesterol LDL Cholesterol Direct Urine Creatinine 03/27/16 03/27/16 03/27/16 02:19 05:47 06:02 WBC RBC Hgb Hct MCV MCH MCHC RDW Plt Count Lymph % (Auto) [place] % (Auto) Lymph # [place] # Baso # Seg Neutrophils % Seg Neuts % (Manual) Lymphocytes % (Manual) Seg Neutrophils # Seg Neutrophils # Man Lymphocytes # (Manual) Monocytes # (Manual) PT INR APTT Heparin Anti-Xa Level POC ABG pH POC ABG pCO2 27.3 L 30.3 L POC ABG pO2 50 L 112 H Sodium 158 H Potassium Chloride 126.7 H Carbon Dioxide 20 L BUN 25 H Creatinine 1.7 H Glucose POC Glucose Calcium 7.0 L Phosphorus Lactate Dehydrogenase Total Creatine Kinase NT-Pro-B Natriuret Pep Albumin Dmjxd-4-Kzboszery Tiyzf-3-Xcnswcmux Beta Globulins PEP Interpretation Cholesterol LDL Cholesterol Direct Urine Creatinine 03/27/16 03/27/16 03/27/16 07:51 09:20 11:45 WBC 14.2 H RBC Hgb Hct MCV 83 L MCH 27 L MCHC RDW Plt Count 113 L Lymph % (Auto) [place] % (Auto) Lymph # [place] # Baso # Seg Neutrophils % Seg Neuts % (Manual) Lymphocytes % (Manual) Seg Neutrophils # Seg Neutrophils # Man Lymphocytes # (Manual) Monocytes # (Manual) PT INR APTT Heparin Anti-Xa Level POC ABG pH POC ABG pCO2 POC ABG pO2 Sodium Potassium Chloride Carbon Dioxide BUN Creatinine Glucose POC Glucose 124 H 241 H Calcium Phosphorus Lactate Dehydrogenase Total Creatine Kinase NT-Pro-B Natriuret Pep Albumin Ravym-3-Objzgfbms Dckir-5-Clvhsakzn Beta Globulins PEP Interpretation Cholesterol LDL Cholesterol Direct Urine Creatinine 03/27/16 03/27/16 03/28/16 16:39 22:03 03:29 WBC RBC Hgb Hct MCV MCH MCHC RDW Plt Count Lymph % (Auto) [place] % (Auto) Lymph # [place] # Baso # Seg Neutrophils % Seg Neuts % (Manual) Lymphocytes % (Manual) Seg Neutrophils # Seg Neutrophils # Man Lymphocytes # (Manual) Monocytes # (Manual) PT INR APTT Heparin Anti-Xa Level POC ABG pH POC ABG pCO2 POC ABG pO2 Sodium Potassium Chloride Carbon Dioxide BUN Creatinine Glucose POC Glucose 266 H 167 H 241 H Calcium Phosphorus Lactate Dehydrogenase Total Creatine Kinase NT-Pro-B Natriuret Pep Albumin Obstf-3-Roazdvxub Woluy-3-Mwnergapm Beta Globulins PEP Interpretation Cholesterol LDL Cholesterol Direct Urine Creatinine 03/28/16 03/28/16 03/28/16 05:00 05:00 05:00 WBC RBC Hgb Hct MCV 83 L MCH 27 L MCHC RDW Plt Count 106 L Lymph % (Auto) [place] % (Auto) 10.1 H Lymph # [place] # 1.0 H Baso # Seg Neutrophils % 75.1 H Seg Neuts % (Manual) Lymphocytes % (Manual) Seg Neutrophils # Seg Neutrophils # Man Lymphocytes # (Manual) Monocytes # (Manual) PT INR APTT Heparin Anti-Xa Level POC ABG pH POC ABG pCO2 POC ABG pO2 Sodium 147 H D Potassium 3.1 L D Chloride 112.3 H Carbon Dioxide 21 L BUN Creatinine Glucose 208 H POC Glucose Calcium 7.0 L Phosphorus 2.2 L Lactate Dehydrogenase Total Creatine Kinase NT-Pro-B Natriuret Pep Albumin Kuakh-4-Znsgpxszp Lwvfj-7-Aipxnyisn Beta Globulins PEP Interpretation Cholesterol LDL Cholesterol Direct Urine Creatinine 03/28/16 03/28/16 03/28/16 05:14 08:41 10:56 WBC RBC Hgb Hct MCV MCH MCHC RDW Plt Count Lymph % (Auto) [place] % (Auto) Lymph # [place] # Baso # Seg Neutrophils % Seg Neuts % (Manual) Lymphocytes % (Manual) Seg Neutrophils # Seg Neutrophils # Man Lymphocytes # (Manual) Monocytes # (Manual) PT INR APTT Heparin Anti-Xa Level POC ABG pH 7.457 H POC ABG pCO2 29.7 L 27.7 L POC ABG pO2 Sodium Potassium Chloride Carbon Dioxide BUN Creatinine Glucose POC Glucose 228 H Calcium Phosphorus Lactate Dehydrogenase Total Creatine Kinase NT-Pro-B Natriuret Pep Albumin Oofbr-4-Oyyeaekbw Lopht-2-Odznbzwcp Beta Globulins PEP Interpretation Cholesterol LDL Cholesterol Direct Urine Creatinine 03/28/16 03/28/16 03/28/16 11:37 13:29 16:22 WBC RBC Hgb Hct MCV MCH MCHC RDW Plt Count Lymph % (Auto) [place] % (Auto) Lymph # [place] # Baso # Seg Neutrophils % Seg Neuts % (Manual) Lymphocytes % (Manual) Seg Neutrophils # Seg Neutrophils # Man Lymphocytes # (Manual) Monocytes # (Manual) PT INR APTT Heparin Anti-Xa Level POC ABG pH POC ABG pCO2 POC ABG pO2 Sodium Potassium Chloride Carbon Dioxide BUN Creatinine Glucose POC Glucose 226 H 200 H Calcium Phosphorus Lactate Dehydrogenase Total Creatine Kinase 356 H NT-Pro-B Natriuret Pep Albumin Jgdwi-6-Buqpfgpje Ueuzt-0-Ksqstmhgn Beta Globulins PEP Interpretation Cholesterol LDL Cholesterol Direct Urine Creatinine 03/28/16 03/29/16 03/29/16 21:48 04:50 04:50 WBC RBC Hgb 11.5 L Hct 35.3 L MCV 81 L MCH 26 L MCHC RDW Plt Count 97 L Lymph % (Auto) [place] % (Auto) 11.7 H Lymph # [place] # 1.1 H Baso # Seg Neutrophils % Seg Neuts % (Manual) Lymphocytes % (Manual) Seg Neutrophils # Seg Neutrophils # Man Lymphocytes # (Manual) Monocytes # (Manual) PT INR APTT Heparin Anti-Xa Level POC ABG pH POC ABG pCO2 POC ABG pO2 Sodium 136 L D Potassium 3.3 L Chloride Carbon Dioxide 20 L BUN Creatinine Glucose 386 H POC Glucose 188 H Calcium 6.8 L Phosphorus 1.6 L D Lactate Dehydrogenase Total Creatine Kinase NT-Pro-B Natriuret Pep Albumin Wwwmo-6-Tfokasjbk Smxgi-6-Eohjslfgy Beta Globulins PEP Interpretation Cholesterol LDL Cholesterol Direct Urine Creatinine 03/29/16 03/29/16 03/29/16 08:10 11:12 16:09 WBC RBC Hgb Hct MCV MCH MCHC RDW Plt Count Lymph % (Auto) [place] % (Auto) Lymph # [place] # Baso # Seg Neutrophils % Seg Neuts % (Manual) Lymphocytes % (Manual) Seg Neutrophils # Seg Neutrophils # Man Lymphocytes # (Manual) Monocytes # (Manual) PT INR APTT Heparin Anti-Xa Level POC ABG pH POC ABG pCO2 POC ABG pO2 Sodium Potassium Chloride Carbon Dioxide BUN Creatinine Glucose POC Glucose 230 H 180 H 46 L Calcium Phosphorus Lactate Dehydrogenase Total Creatine Kinase NT-Pro-B Natriuret Pep Albumin Rezzb-2-Dmstopcwz Dxhit-8-Poqvydqyy Beta Globulins PEP Interpretation Cholesterol LDL Cholesterol Direct Urine Creatinine 03/29/16 03/29/16 03/30/16 16:12 18:15 02:53 WBC RBC Hgb Hct MCV MCH MCHC RDW Plt Count Lymph % (Auto) [place] % (Auto) Lymph # [place] # Baso # Seg Neutrophils % Seg Neuts % (Manual) Lymphocytes % (Manual) Seg Neutrophils # Seg Neutrophils # Man Lymphocytes # (Manual) Monocytes # (Manual) PT INR APTT Heparin Anti-Xa Level POC ABG pH POC ABG pCO2 POC ABG pO2 Sodium Potassium Chloride Carbon Dioxide BUN Creatinine Glucose POC Glucose 52 L 118 H 130 H Calcium Phosphorus Lactate Dehydrogenase Total Creatine Kinase NT-Pro-B Natriuret Pep Albumin Fmett-4-Ylnaupepz Ndrxl-1-Wasikwkaa Beta Globulins PEP Interpretation Cholesterol LDL Cholesterol Direct Urine Creatinine 03/30/16 03/30/16 03/30/16 04:00 04:00 05:29 WBC RBC Hgb Hct MCV 81 L MCH 26 L MCHC RDW Plt Count 116 L Lymph % (Auto) 10.8 L [place] % (Auto) 13.1 H Lymph # 1.0 L [place] # 1.3 H Baso # Seg Neutrophils % 74.2 H Seg Neuts % (Manual) Lymphocytes % (Manual) Seg Neutrophils # Seg Neutrophils # Man Lymphocytes # (Manual) Monocytes # (Manual) PT INR APTT Heparin Anti-Xa Level POC ABG pH 7.522 H POC ABG pCO2 22.7 L POC ABG pO2 137 H Sodium 147 H D Potassium Chloride 115.5 H Carbon Dioxide 20 L BUN Creatinine Glucose 116 H POC Glucose Calcium 7.6 L Phosphorus 2.3 L D Lactate Dehydrogenase Total Creatine Kinase NT-Pro-B Natriuret Pep Albumin Jnzfi-4-Oufrpsoqi Rkqlm-2-Pjahbbait Beta Globulins PEP Interpretation Cholesterol LDL Cholesterol Direct Urine Creatinine 03/30/16 03/30/16 03/30/16 05:47 08:05 08:59 WBC RBC Hgb Hct MCV MCH MCHC RDW Plt Count Lymph % (Auto) [place] % (Auto) Lymph # [place] # Baso # Seg Neutrophils % Seg Neuts % (Manual) Lymphocytes % (Manual) Seg Neutrophils # Seg Neutrophils # Man Lymphocytes # (Manual) Monocytes # (Manual) PT INR APTT Heparin Anti-Xa Level POC ABG pH POC ABG pCO2 26.2 L POC ABG pO2 115 H Sodium Potassium Chloride Carbon Dioxide BUN Creatinine Glucose POC Glucose 138 H 171 H Calcium Phosphorus Lactate Dehydrogenase Total Creatine Kinase NT-Pro-B Natriuret Pep Albumin Kskgq-0-Pajdcjlra Kspdd-8-Wnvxflpcr Beta Globulins PEP Interpretation Cholesterol LDL Cholesterol Direct Urine Creatinine 03/30/16 03/30/16 03/30/16 12:11 12:11 16:39 WBC RBC Hgb Hct MCV MCH MCHC RDW Plt Count Lymph % (Auto) [place] % (Auto) Lymph # [place] # Baso # Seg Neutrophils % Seg Neuts % (Manual) Lymphocytes % (Manual) Seg Neutrophils # Seg Neutrophils # Man Lymphocytes # (Manual) Monocytes # (Manual) PT INR APTT Heparin Anti-Xa Level POC ABG pH 7.476 H POC ABG pCO2 29.0 L POC ABG pO2 Sodium Potassium Chloride Carbon Dioxide BUN Creatinine Glucose POC Glucose 142 H 59 L Calcium Phosphorus Lactate Dehydrogenase Total Creatine Kinase NT-Pro-B Natriuret Pep Albumin Edfjn-3-Faldrspgr Uwdfm-0-Fgfzijihc Beta Globulins PEP Interpretation Cholesterol LDL Cholesterol Direct Urine Creatinine 03/30/16 03/30/16 03/31/16 18:41 21:59 05:02 WBC RBC Hgb Hct MCV MCH MCHC RDW Plt Count Lymph % (Auto) [place] % (Auto) Lymph # [place] # Baso # Seg Neutrophils % Seg Neuts % (Manual) Lymphocytes % (Manual) Seg Neutrophils # Seg Neutrophils # Man Lymphocytes # (Manual) Monocytes # (Manual) PT INR APTT Heparin Anti-Xa Level POC ABG pH 7.519 H POC ABG pCO2 21.8 L POC ABG pO2 142 H Sodium Potassium Chloride Carbon Dioxide BUN Creatinine Glucose POC Glucose 145 H 154 H Calcium Phosphorus Lactate Dehydrogenase Total Creatine Kinase NT-Pro-B Natriuret Pep Albumin Pfpdj-7-Amhxevcdg Gwkvz-6-Gusehpqwf Beta Globulins PEP Interpretation Cholesterol LDL Cholesterol Direct Urine Creatinine 03/31/16 03/31/16 03/31/16 05:15 05:15 05:15 WBC 13.4 H RBC 5.21 H Hgb Hct MCV 81 L MCH 26 L MCHC RDW Plt Count Lymph % (Auto) 9.5 L [place] % (Auto) 14.0 H Lymph # [place] # 1.9 H Baso # Seg Neutrophils % 75.0 H Seg Neuts % (Manual) Lymphocytes % (Manual) Seg Neutrophils # 10.1 H Seg Neutrophils # Man Lymphocytes # (Manual) Monocytes # (Manual) PT INR APTT Heparin Anti-Xa Level POC ABG pH POC ABG pCO2 POC ABG pO2 Sodium Potassium Chloride 108.5 H Carbon Dioxide 19 L BUN Creatinine Glucose 188 H POC Glucose Calcium Phosphorus Lactate Dehydrogenase Total Creatine Kinase NT-Pro-B Natriuret Pep 1089 H Albumin Swugp-0-Ipszslrzf Mdldw-9-Uwargzirp Beta Globulins PEP Interpretation Cholesterol LDL Cholesterol Direct Urine Creatinine 03/31/16 03/31/16 03/31/16 07:23 11:12 15:20 WBC RBC Hgb Hct MCV MCH MCHC RDW Plt Count Lymph % (Auto) [place] % (Auto) Lymph # [place] # Baso # Seg Neutrophils % Seg Neuts % (Manual) Lymphocytes % (Manual) Seg Neutrophils # Seg Neutrophils # Man Lymphocytes # (Manual) Monocytes # (Manual) PT INR APTT Heparin Anti-Xa Level POC ABG pH POC ABG pCO2 POC ABG pO2 Sodium Potassium Chloride Carbon Dioxide BUN Creatinine Glucose POC Glucose 233 H 228 H 208 H Calcium Phosphorus Lactate Dehydrogenase Total Creatine Kinase NT-Pro-B Natriuret Pep Albumin Aliko-9-Stntjblnk Uegew-4-Vclweeflb Beta Globulins PEP Interpretation Cholesterol LDL Cholesterol Direct Urine Creatinine 03/31/16 04/01/16 04/01/16 21:27 04:41 05:35 WBC 12.1 H RBC Hgb Hct MCV 81 L MCH 26 L MCHC RDW Plt Count Lymph % (Auto) 8.5 L [place] % (Auto) 14.0 H Lymph # 1.0 L [place] # 1.7 H Baso # Seg Neutrophils % 76.2 H Seg Neuts % (Manual) Lymphocytes % (Manual) Seg Neutrophils # 9.2 H Seg Neutrophils # Man Lymphocytes # (Manual) Monocytes # (Manual) PT INR APTT Heparin Anti-Xa Level POC ABG pH 7.455 H POC ABG pCO2 31.0 L POC ABG pO2 Sodium Potassium Chloride Carbon Dioxide BUN Creatinine Glucose POC Glucose 162 H Calcium Phosphorus Lactate Dehydrogenase Total Creatine Kinase NT-Pro-B Natriuret Pep Albumin Trjab-0-Nzkwbhqiq Nxdrx-0-Srtyrffua Beta Globulins PEP Interpretation Cholesterol LDL Cholesterol Direct Urine Creatinine 04/01/16 04/01/16 04/01/16 05:35 08:44 12:49 WBC RBC Hgb Hct MCV MCH MCHC RDW Plt Count Lymph % (Auto) [place] % (Auto) Lymph # [place] # Baso # Seg Neutrophils % Seg Neuts % (Manual) Lymphocytes % (Manual) Seg Neutrophils # Seg Neutrophils # Man Lymphocytes # (Manual) Monocytes # (Manual) PT INR APTT Heparin Anti-Xa Level POC ABG pH POC ABG pCO2 POC ABG pO2 Sodium Potassium Chloride Carbon Dioxide BUN Creatinine Glucose 256 H POC Glucose 257 H 279 H Calcium 8.0 L Phosphorus Lactate Dehydrogenase Total Creatine Kinase NT-Pro-B Natriuret Pep 1205 H Albumin Jkjpa-3-Lgttkilqb Erznw-3-Lootbaenu Beta Globulins PEP Interpretation Cholesterol LDL Cholesterol Direct Urine Creatinine 04/01/16 04/02/16 04/02/16 18:12 00:42 04:17 WBC RBC Hgb Hct MCV MCH MCHC RDW Plt Count Lymph % (Auto) [place] % (Auto) Lymph # [place] # Baso # Seg Neutrophils % Seg Neuts % (Manual) Lymphocytes % (Manual) Seg Neutrophils # Seg Neutrophils # Man Lymphocytes # (Manual) Monocytes # (Manual) PT INR APTT Heparin Anti-Xa Level POC ABG pH 7.582 H POC ABG pCO2 26.8 L POC ABG pO2 Sodium Potassium Chloride Carbon Dioxide BUN Creatinine Glucose POC Glucose 168 H 282 H Calcium Phosphorus Lactate Dehydrogenase Total Creatine Kinase NT-Pro-B Natriuret Pep Albumin Wesay-9-Juumkhagm Xaomr-2-Vixwosxzp Beta Globulins PEP Interpretation Cholesterol LDL Cholesterol Direct Urine Creatinine 04/02/16 04/02/16 04/02/16 05:00 05:00 06:27 WBC 12.4 H RBC Hgb Hct MCV 81 L MCH 26 L MCHC RDW Plt Count Lymph % (Auto) 6.4 L [place] % (Auto) 13.3 H Lymph # 0.8 L [place] # 1.7 H Baso # Seg Neutrophils % 79.4 H Seg Neuts % (Manual) Lymphocytes % (Manual) Seg Neutrophils # 9.9 H Seg Neutrophils # Man Lymphocytes # (Manual) Monocytes # (Manual) PT INR APTT Heparin Anti-Xa Level POC ABG pH POC ABG pCO2 POC ABG pO2 Sodium 146 H Potassium Chloride Carbon Dioxide BUN Creatinine Glucose 334 H POC Glucose 317 H Calcium 8.0 L Phosphorus Lactate Dehydrogenase Total Creatine Kinase NT-Pro-B Natriuret Pep Albumin Qrkgr-5-Axhjxsgwf Mgbsq-2-Bralaxcnz Beta Globulins PEP Interpretation Cholesterol LDL Cholesterol Direct Urine Creatinine 04/02/16 04/02/16 04/02/16 11:51 13:10 17:24 WBC RBC Hgb Hct MCV MCH MCHC RDW Plt Count Lymph % (Auto) [place] % (Auto) Lymph # [place] # Baso # Seg Neutrophils % Seg Neuts % (Manual) Lymphocytes % (Manual) Seg Neutrophils # Seg Neutrophils # Man Lymphocytes # (Manual) Monocytes # (Manual) PT INR APTT Heparin Anti-Xa Level POC ABG pH 7.518 H POC ABG pCO2 POC ABG pO2 Sodium Potassium Chloride Carbon Dioxide BUN Creatinine Glucose POC Glucose 278 H 195 H Calcium Phosphorus Lactate Dehydrogenase Total Creatine Kinase NT-Pro-B Natriuret Pep Albumin [id number] [id number]-[id number]-Gtkuuzfzb Beta Globulins PEP Interpretation Cholesterol LDL Cholesterol Direct Urine Creatinine 04/03/16 04/03/16 04/03/16 00:18 04:10 04:10 WBC 14.3 H RBC Hgb Hct MCV 81 L MCH 26 L MCHC RDW Plt Count Lymph % (Auto) 9.0 L [place] % (Auto) 10.7 H Lymph # [place] # 1.5 H Baso # 0.2 H Seg Neutrophils % 78.5 H Seg Neuts % (Manual) Lymphocytes % (Manual) Seg Neutrophils # 11.3 H Seg Neutrophils # Man Lymphocytes # (Manual) Monocytes # (Manual) PT INR APTT Heparin Anti-Xa Level POC ABG pH POC ABG pCO2 POC ABG pO2 Sodium 148 H Potassium Chloride 108.1 H Carbon Dioxide BUN 21 H Creatinine Glucose 227 H POC Glucose 144 H Calcium 8.2 L Phosphorus Lactate Dehydrogenase Total Creatine Kinase NT-Pro-B Natriuret Pep Albumin Eqonj-3-Xbdtcopev Fhbmc-2-Vdjtlevja Beta Globulins PEP Interpretation Cholesterol LDL Cholesterol Direct Urine Creatinine 04/03/16 04/03/16 04/04/16 11:14 17:10 04:00 WBC 14.5 H RBC Hgb Hct MCV 81 L MCH 26 L MCHC RDW Plt Count Lymph % (Auto) 7.2 L [place] % (Auto) 7.6 H Lymph # 1.0 L [place] # 1.1 H Baso # Seg Neutrophils % 84.5 H Seg Neuts % (Manual) Lymphocytes % (Manual) Seg Neutrophils # 12.3 H Seg Neutrophils # Man Lymphocytes # (Manual) Monocytes # (Manual) PT INR APTT Heparin Anti-Xa Level POC ABG pH POC ABG pCO2 POC ABG pO2 Sodium Potassium Chloride Carbon Dioxide BUN Creatinine Glucose POC Glucose 267 H 212 H Calcium Phosphorus Lactate Dehydrogenase Total Creatine Kinase NT-Pro-B Natriuret Pep Albumin Ucuvy-5-Htbsjufrr Fdoki-7-Gbbedxmkc Beta Globulins PEP Interpretation Cholesterol LDL Cholesterol Direct Urine Creatinine 04/04/16 04/04/16 04/04/16 05:00 09:55 09:55 WBC RBC Hgb 11.5 L Hct MCV MCH MCHC RDW Plt Count Lymph % (Auto) [place] % (Auto) Lymph # [place] # Baso # Seg Neutrophils % Seg Neuts % (Manual) Lymphocytes % (Manual) Seg Neutrophils # Seg Neutrophils # Man Lymphocytes # (Manual) Monocytes # (Manual) PT INR APTT 42.1 H Heparin Anti-Xa Level POC ABG pH POC ABG pCO2 POC ABG pO2 Sodium 146 H Potassium Chloride Carbon Dioxide BUN 22 H Creatinine Glucose 128 H POC Glucose Calcium Phosphorus Lactate Dehydrogenase Total Creatine Kinase NT-Pro-B Natriuret Pep Albumin Qdzai-7-Ivyppdrfw Nhuyv-8-Dqldehrto Beta Globulins PEP Interpretation Cholesterol LDL Cholesterol Direct Urine Creatinine 04/04/16 04/04/16 04/04/16 11:45 17:49 17:55 WBC RBC Hgb Hct MCV MCH MCHC RDW Plt Count Lymph % (Auto) [place] % (Auto) Lymph # [place] # Baso # Seg Neutrophils % Seg Neuts % (Manual) Lymphocytes % (Manual) Seg Neutrophils # Seg Neutrophils # Man Lymphocytes # (Manual) Monocytes # (Manual) PT INR APTT Heparin Anti-Xa Level 1.19 H POC ABG pH POC ABG pCO2 POC ABG pO2 Sodium Potassium Chloride Carbon Dioxide BUN Creatinine Glucose POC Glucose 231 H 186 H Calcium Phosphorus Lactate Dehydrogenase Total Creatine Kinase NT-Pro-B Natriuret Pep Albumin Jelhm-0-Ywpwyvbcy Csfxs-2-Tlkhabbzr Beta Globulins PEP Interpretation Cholesterol LDL Cholesterol Direct Urine Creatinine 04/05/16 04/05/16 04/05/16 00:35 05:32 05:42 WBC RBC Hgb Hct MCV MCH MCHC RDW Plt Count Lymph % (Auto) [place] % (Auto) Lymph # [place] # Baso # Seg Neutrophils % Seg Neuts % (Manual) Lymphocytes % (Manual) Seg Neutrophils # Seg Neutrophils # Man Lymphocytes # (Manual) Monocytes # (Manual) PT INR APTT Heparin Anti-Xa Level POC ABG pH 7.491 H POC ABG pCO2 POC ABG pO2 Sodium Potassium Chloride Carbon Dioxide BUN Creatinine Glucose POC Glucose 192 H 242 H Calcium Phosphorus Lactate Dehydrogenase Total Creatine Kinase NT-Pro-B Natriuret Pep Albumin Ydtds-4-Wppzwdmiu Vhzei-0-Isuvzehsd Beta Globulins PEP Interpretation Cholesterol LDL Cholesterol Direct Urine Creatinine 04/05/16 04/05/16 04/05/16 06:20 06:20 12:19 WBC 13.9 H RBC Hgb 11.6 L Hct MCV 81 L MCH 26 L MCHC RDW Plt Count Lymph % (Auto) 9.6 L [place] % (Auto) 8.7 H Lymph # [place] # 1.2 H Baso # Seg Neutrophils % 80.9 H Seg Neuts % (Manual) Lymphocytes % (Manual) Seg Neutrophils # 11.3 H Seg Neutrophils # Man Lymphocytes # (Manual) Monocytes # (Manual) PT INR APTT Heparin Anti-Xa Level POC ABG pH POC ABG pCO2 POC ABG pO2 Sodium 148 H Potassium Chloride Carbon Dioxide BUN 23 H Creatinine Glucose 242 H POC Glucose 187 H Calcium Phosphorus Lactate Dehydrogenase Total Creatine Kinase NT-Pro-B Natriuret Pep Albumin Vqowe-6-Lxkjrrznv Vlsfh-4-Muuiuzxmd Beta Globulins PEP Interpretation Cholesterol LDL Cholesterol Direct Urine Creatinine 04/05/16 04/05/16 04/06/16 17:10 23:45 05:23 WBC 13.0 H RBC Hgb Hct MCV 82 L MCH 26 L MCHC 31 L RDW Plt Count Lymph % (Auto) 6.7 L [place] % (Auto) 8.3 H Lymph # 0.9 L [place] # 1.1 H Baso # Seg Neutrophils % 84.6 H Seg Neuts % (Manual) Lymphocytes % (Manual) Seg Neutrophils # 11.0 H Seg Neutrophils # Man Lymphocytes # (Manual) Monocytes # (Manual) PT INR APTT Heparin Anti-Xa Level POC ABG pH POC ABG pCO2 POC ABG pO2 Sodium Potassium Chloride Carbon Dioxide BUN Creatinine Glucose POC Glucose 169 H 202 H Calcium Phosphorus Lactate Dehydrogenase Total Creatine Kinase NT-Pro-B Natriuret Pep Albumin Mctzx-4-Inhlhrxbn Bdfxv-6-Cekoyzexu Beta Globulins PEP Interpretation Cholesterol LDL Cholesterol Direct Urine Creatinine 04/06/16 04/06/16 04/06/16 05:23 05:23 06:11 WBC RBC Hgb Hct MCV MCH MCHC RDW Plt Count Lymph % (Auto) [place] % (Auto) Lymph # [place] # Baso # Seg Neutrophils % Seg Neuts % (Manual) Lymphocytes % (Manual) Seg Neutrophils # Seg Neutrophils # Man Lymphocytes # (Manual) Monocytes # (Manual) PT INR APTT Heparin Anti-Xa Level 0.21 L POC ABG pH POC ABG pCO2 POC ABG pO2 Sodium 153 H Potassium Chloride 111.3 H Carbon Dioxide BUN 22 H Creatinine Glucose 62 L POC Glucose 56 L Calcium Phosphorus Lactate Dehydrogenase Total Creatine Kinase NT-Pro-B Natriuret Pep Albumin Repyv-1-Alhyrfklh Ynjgo-9-Yfjsasiyn Beta Globulins PEP Interpretation Cholesterol LDL Cholesterol Direct Urine Creatinine 04/06/16 04/06/16 04/06/16 06:52 11:36 14:58 WBC RBC Hgb Hct MCV MCH MCHC RDW Plt Count Lymph % (Auto) [place] % (Auto) Lymph # [place] # Baso # Seg Neutrophils % Seg Neuts % (Manual) Lymphocytes % (Manual) Seg Neutrophils # Seg Neutrophils # Man Lymphocytes # (Manual) Monocytes # (Manual) PT INR APTT Heparin Anti-Xa Level POC ABG pH POC ABG pCO2 POC ABG pO2 Sodium Potassium Chloride Carbon Dioxide BUN Creatinine Glucose POC Glucose 206 H 139 H 147 H Calcium Phosphorus Lactate Dehydrogenase Total Creatine Kinase NT-Pro-B Natriuret Pep Albumin Qfful-2-Hlvyfkgsv Zftdu-5-Yycoqsflo Beta Globulins PEP Interpretation Cholesterol LDL Cholesterol Direct Urine Creatinine 04/06/16 04/06/16 04/06/16 16:03 21:18 23:53 WBC RBC Hgb Hct MCV MCH MCHC RDW Plt Count Lymph % (Auto) [place] % (Auto) Lymph # [place] # Baso # Seg Neutrophils % Seg Neuts % (Manual) Lymphocytes % (Manual) Seg Neutrophils # Seg Neutrophils # Man Lymphocytes # (Manual) Monocytes # (Manual) PT INR APTT Heparin Anti-Xa Level POC ABG pH POC ABG pCO2 POC ABG pO2 Sodium Potassium Chloride Carbon Dioxide BUN Creatinine Glucose POC Glucose 154 H 293 H 301 H Calcium Phosphorus Lactate Dehydrogenase Total Creatine Kinase NT-Pro-B Natriuret Pep Albumin Exnor-3-Pqdngvaph Htwue-3-Gkdvtmcfd Beta Globulins PEP Interpretation Cholesterol LDL Cholesterol Direct Urine Creatinine 04/07/16 04/07/16 04/07/16 02:30 05:11 05:11 WBC 12.5 H RBC Hgb 11.5 L Hct MCV 82 L MCH 26 L MCHC 31 L RDW Plt Count Lymph % (Auto) [place] % (Auto) Lymph # [place] # Baso # Seg Neutrophils % Seg Neuts % (Manual) Lymphocytes % (Manual) Seg Neutrophils # Seg Neutrophils # Man Lymphocytes # (Manual) Monocytes # (Manual) PT INR APTT Heparin Anti-Xa Level 0.11 L POC ABG pH POC ABG pCO2 POC ABG pO2 Sodium 150 H Potassium Chloride 109.5 H Carbon Dioxide BUN 28 H Creatinine Glucose 264 H POC Glucose Calcium Phosphorus Lactate Dehydrogenase Total Creatine Kinase NT-Pro-B Natriuret Pep Albumin Kbraw-3-Xkhdpxrtm Mqcmi-8-Kpabyusgn Beta Globulins PEP Interpretation Cholesterol LDL Cholesterol Direct Urine Creatinine 04/07/16 04/07/16 04/07/16 06:46 10:18 11:50 WBC RBC Hgb Hct MCV MCH MCHC RDW Plt Count Lymph % (Auto) [place] % (Auto) Lymph # [place] # Baso # Seg Neutrophils % Seg Neuts % (Manual) Lymphocytes % (Manual) Seg Neutrophils # Seg Neutrophils # Man Lymphocytes # (Manual) Monocytes # (Manual) PT 15.1 H INR 1.20 H APTT Heparin Anti-Xa Level POC ABG pH POC ABG pCO2 POC ABG pO2 Sodium Potassium Chloride Carbon Dioxide BUN Creatinine Glucose POC Glucose 259 H 288 H Calcium Phosphorus Lactate Dehydrogenase Total Creatine Kinase NT-Pro-B Natriuret Pep Albumin Txwwq-8-Jrbyljvog Xetew-9-Lyydmgfxh Beta Globulins PEP Interpretation Cholesterol LDL Cholesterol Direct Urine Creatinine 04/07/16 04/08/16 04/08/16 17:58 01:25 06:49 WBC RBC Hgb Hct MCV MCH MCHC RDW Plt Count Lymph % (Auto) [place] % (Auto) Lymph # [place] # Baso # Seg Neutrophils % Seg Neuts % (Manual) Lymphocytes % (Manual) Seg Neutrophils # Seg Neutrophils # Man Lymphocytes # (Manual) Monocytes # (Manual) PT INR APTT Heparin Anti-Xa Level POC ABG pH POC ABG pCO2 POC ABG pO2 Sodium 156 H Potassium Chloride 114.7 H Carbon Dioxide BUN 33 H Creatinine Glucose 169 H POC Glucose 330 H 146 H Calcium Phosphorus Lactate Dehydrogenase Total Creatine Kinase NT-Pro-B Natriuret Pep Albumin [place]-4-Wrnrtniez Qmyua-8-Qjpzwelrk Beta Globulins PEP Interpretation Cholesterol LDL Cholesterol Direct Urine Creatinine 04/08/16 04/08/16 04/08/16 07:34 10:28 10:28 WBC RBC Hgb Hct MCV MCH MCHC RDW Plt Count Lymph % (Auto) [place] % (Auto) Lymph # [place] # Baso # Seg Neutrophils % Seg Neuts % (Manual) Lymphocytes % (Manual) Seg Neutrophils # Seg Neutrophils # Man Lymphocytes # (Manual) Monocytes # (Manual) PT 15.5 H INR 1.24 H APTT Heparin Anti-Xa Level 0.24 L POC ABG pH POC ABG pCO2 POC ABG pO2 Sodium Potassium Chloride Carbon Dioxide BUN Creatinine Glucose POC Glucose 232 H Calcium Phosphorus Lactate Dehydrogenase Total Creatine Kinase NT-Pro-B Natriuret Pep Albumin Wldjr-1-Jtvluxrot Ngndk-6-Vcvoylniv Beta Globulins PEP Interpretation Cholesterol LDL Cholesterol Direct Urine Creatinine 04/08/16 04/08/16 04/09/16 11:36 15:38 00:01 WBC RBC Hgb Hct MCV MCH MCHC RDW Plt Count Lymph % (Auto) [place] % (Auto) Lymph # [place] # Baso # Seg Neutrophils % Seg Neuts % (Manual) Lymphocytes % (Manual) Seg Neutrophils # Seg Neutrophils # Man Lymphocytes # (Manual) Monocytes # (Manual) PT INR APTT Heparin Anti-Xa Level POC ABG pH POC ABG pCO2 POC ABG pO2 Sodium Potassium Chloride Carbon Dioxide BUN Creatinine Glucose POC Glucose 193 H 163 H 180 H Calcium Phosphorus Lactate Dehydrogenase Total Creatine Kinase NT-Pro-B Natriuret Pep Albumin Qldud-3-Fxybgprqg Palmw-9-Hwcjmlxsu Beta Globulins PEP Interpretation Cholesterol LDL Cholesterol Direct Urine Creatinine 04/09/16 04/09/16 04/09/16 06:17 06:42 06:42 WBC RBC Hgb Hct MCV MCH MCHC RDW Plt Count Lymph % (Auto) [place] % (Auto) Lymph # [place] # Baso # Seg Neutrophils % Seg Neuts % (Manual) Lymphocytes % (Manual) Seg Neutrophils # Seg Neutrophils # Man Lymphocytes # (Manual) Monocytes # (Manual) PT 17.4 H INR 1.43 H APTT Heparin Anti-Xa Level POC ABG pH POC ABG pCO2 POC ABG pO2 Sodium 153 H Potassium Chloride 113.2 H Carbon Dioxide BUN 29 H Creatinine Glucose 301 H POC Glucose 249 H Calcium 8.3 L Phosphorus Lactate Dehydrogenase Total Creatine Kinase NT-Pro-B Natriuret Pep Albumin Tvxaa-2-Tlfgkuokf Yeugz-8-Mpjjvjkyw Beta Globulins PEP Interpretation Cholesterol LDL Cholesterol Direct Urine Creatinine 04/09/16 04/09/16 04/09/16 07:37 11:26 15:45 WBC RBC Hgb Hct MCV MCH MCHC RDW Plt Count Lymph % (Auto) [place] % (Auto) Lymph # [place] # Baso # Seg Neutrophils % Seg Neuts % (Manual) Lymphocytes % (Manual) Seg Neutrophils # Seg Neutrophils # Man Lymphocytes # (Manual) Monocytes # (Manual) PT INR APTT Heparin Anti-Xa Level POC ABG pH POC ABG pCO2 POC ABG pO2 Sodium Potassium Chloride Carbon Dioxide BUN Creatinine Glucose POC Glucose 283 H 306 H 354 H Calcium Phosphorus Lactate Dehydrogenase Total Creatine Kinase NT-Pro-B Natriuret Pep Albumin Ayyus-9-Sleeaemgz Ycnwe-3-Xmxxidhja Beta Globulins PEP Interpretation Cholesterol LDL Cholesterol Direct Urine Creatinine 04/10/16 04/10/16 04/10/16 00:53 07:15 07:34 WBC RBC Hgb 11.3 L Hct MCV MCH MCHC RDW Plt Count Lymph % (Auto) [place] % (Auto) Lymph # [place] # Baso # Seg Neutrophils % Seg Neuts % (Manual) Lymphocytes % (Manual) Seg Neutrophils # Seg Neutrophils # Man Lymphocytes # (Manual) Monocytes # (Manual) PT INR APTT Heparin Anti-Xa Level POC ABG pH POC ABG pCO2 POC ABG pO2 Sodium Potassium Chloride Carbon Dioxide BUN Creatinine Glucose POC Glucose 323 H 311 H Calcium Phosphorus Lactate Dehydrogenase Total Creatine Kinase NT-Pro-B Natriuret Pep Albumin Xnprq-5-Hslfwemir Lmgtv-6-Onwaohudc Beta Globulins PEP Interpretation Cholesterol LDL Cholesterol Direct Urine Creatinine 04/10/16 04/10/16 04/10/16 07:34 07:34 11:25 WBC RBC Hgb Hct MCV MCH MCHC RDW Plt Count Lymph % (Auto) [place] % (Auto) Lymph # [place] # Baso # Seg Neutrophils % Seg Neuts % (Manual) Lymphocytes % (Manual) Seg Neutrophils # Seg Neutrophils # Man Lymphocytes # (Manual) Monocytes # (Manual) PT 17.3 H INR 1.42 H APTT Heparin Anti-Xa Level POC ABG pH POC ABG pCO2 POC ABG pO2 Sodium 158 H Potassium Chloride 118.6 H Carbon Dioxide BUN 30 H Creatinine Glucose 330 H POC Glucose 335 H Calcium 8.3 L Phosphorus Lactate Dehydrogenase Total Creatine Kinase NT-Pro-B Natriuret Pep Albumin Qjkkx-6-Gfhcudodb Qcrfx-2-Pspmztnjp Beta Globulins PEP Interpretation Cholesterol LDL Cholesterol Direct Urine Creatinine 04/10/16 04/11/16 04/11/16 16:21 00:29 07:47 WBC RBC Hgb Hct MCV MCH MCHC RDW Plt Count Lymph % (Auto) [place] % (Auto) Lymph # [place] # Baso # Seg Neutrophils % Seg Neuts % (Manual) Lymphocytes % (Manual) Seg Neutrophils # Seg Neutrophils # Man Lymphocytes # (Manual) Monocytes # (Manual) PT 18.4 H INR 1.53 H APTT Heparin Anti-Xa Level POC ABG pH POC ABG pCO2 POC ABG pO2 Sodium Potassium Chloride Carbon Dioxide BUN Creatinine Glucose POC Glucose 230 H 162 H Calcium Phosphorus Lactate Dehydrogenase Total Creatine Kinase NT-Pro-B Natriuret Pep Albumin Ekmjs-5-Bzesycdbi Bhbyt-0-Snuqrxqna Beta Globulins PEP Interpretation Cholesterol LDL Cholesterol Direct Urine Creatinine 04/11/16 04/11/16 04/12/16 07:47 11:22 04:54 WBC RBC Hgb 11.0 L Hct 35.0 L MCV MCH MCHC RDW Plt Count Lymph % (Auto) [place] % (Auto) Lymph # [place] # Baso # Seg Neutrophils % Seg Neuts % (Manual) Lymphocytes % (Manual) Seg Neutrophils # Seg Neutrophils # Man Lymphocytes # (Manual) Monocytes # (Manual) PT INR APTT Heparin Anti-Xa Level POC ABG pH POC ABG pCO2 POC ABG pO2 Sodium 155 H Potassium Chloride 114.5 H Carbon Dioxide BUN 23 H Creatinine Glucose 157 H POC Glucose 229 H Calcium Phosphorus Lactate Dehydrogenase Total Creatine Kinase NT-Pro-B Natriuret Pep Albumin Ldjww-9-Thghqnpxe Kgdfz-8-Fvizridls Beta Globulins PEP Interpretation Cholesterol LDL Cholesterol Direct Urine Creatinine 04/12/16 04/12/16 04/12/16 04:54 04:54 05:57 WBC RBC Hgb Hct MCV MCH MCHC RDW Plt Count Lymph % (Auto) [place] % (Auto) Lymph # [place] # Baso # Seg Neutrophils % Seg Neuts % (Manual) Lymphocytes % (Manual) Seg Neutrophils # Seg Neutrophils # Man Lymphocytes # (Manual) Monocytes # (Manual) PT 22.5 H INR 1.98 H APTT Heparin Anti-Xa Level 0.19 L POC ABG pH POC ABG pCO2 POC ABG pO2 Sodium 156 H Potassium Chloride 115.4 H Carbon Dioxide BUN 23 H Creatinine Glucose 143 H POC Glucose 194 H Calcium Phosphorus Lactate Dehydrogenase Total Creatine Kinase NT-Pro-B Natriuret Pep Albumin Atrar-0-Pfrepnwlx Rjyux-1-Kxoxxfgod Beta Globulins PEP Interpretation Cholesterol LDL Cholesterol Direct Urine Creatinine 04/12/16 04/12/16 04/12/16 12:34 19:01 23:30 WBC RBC Hgb Hct MCV MCH MCHC RDW Plt Count Lymph % (Auto) [place] % (Auto) Lymph # [place] # Baso # Seg Neutrophils % Seg Neuts % (Manual) Lymphocytes % (Manual) Seg Neutrophils # Seg Neutrophils # Man Lymphocytes # (Manual) Monocytes # (Manual) PT INR APTT Heparin Anti-Xa Level POC ABG pH POC ABG pCO2 POC ABG pO2 Sodium Potassium Chloride Carbon Dioxide BUN Creatinine Glucose POC Glucose 291 H 235 H 154 H Calcium Phosphorus Lactate Dehydrogenase Total Creatine Kinase NT-Pro-B Natriuret Pep Albumin Xpvmg-1-Hldpjnovl Srfug-8-Gidptpwwp Beta Globulins PEP Interpretation Cholesterol LDL Cholesterol Direct Urine Creatinine 04/13/16 04/13/16 04/13/16 05:16 05:16 05:28 WBC RBC Hgb Hct MCV MCH MCHC RDW Plt Count Lymph % (Auto) [place] % (Auto) Lymph # [place] # Baso # Seg Neutrophils % Seg Neuts % (Manual) Lymphocytes % (Manual) Seg Neutrophils # Seg Neutrophils # Man Lymphocytes # (Manual) Monocytes # (Manual) PT 27.0 H INR 2.49 H APTT Heparin Anti-Xa Level 0.20 L POC ABG pH POC ABG pCO2 POC ABG pO2 Sodium 150 H Potassium Chloride 110.5 H Carbon Dioxide BUN 21 H Creatinine Glucose 159 H POC Glucose 177 H Calcium Phosphorus Lactate Dehydrogenase Total Creatine Kinase NT-Pro-B Natriuret Pep Albumin Fuxns-5-Oedmzxkxt Msgfn-7-Ipgzynuhk Beta Globulins PEP Interpretation Cholesterol LDL Cholesterol Direct Urine Creatinine 04/13/16 04/13/16 04/14/16 11:30 17:54 00:44 WBC RBC Hgb Hct MCV MCH MCHC RDW Plt Count Lymph % (Auto) [place] % (Auto) Lymph # [place] # Baso # Seg Neutrophils % Seg Neuts % (Manual) Lymphocytes % (Manual) Seg Neutrophils # Seg Neutrophils # Man Lymphocytes # (Manual) Monocytes # (Manual) PT INR APTT Heparin Anti-Xa Level POC ABG pH POC ABG pCO2 POC ABG pO2 Sodium Potassium Chloride Carbon Dioxide BUN Creatinine Glucose POC Glucose 181 H 251 H 237 H Calcium Phosphorus Lactate Dehydrogenase Total Creatine Kinase NT-Pro-B Natriuret Pep Albumin Ifwbs-6-Ylwcplnze Tiwtu-4-Kvurqfbgw Beta Globulins PEP Interpretation Cholesterol LDL Cholesterol Direct Urine Creatinine 04/14/16 04/14/16 04/14/16 05:00 05:42 05:42 WBC RBC Hgb Hct MCV MCH MCHC RDW Plt Count Lymph % (Auto) [place] % (Auto) Lymph # [place] # Baso # Seg Neutrophils % Seg Neuts % (Manual) Lymphocytes % (Manual) Seg Neutrophils # Seg Neutrophils # Man Lymphocytes # (Manual) Monocytes # (Manual) PT 30.3 H INR 2.88 H APTT Heparin Anti-Xa Level 0.27 L POC ABG pH POC ABG pCO2 POC ABG pO2 Sodium Potassium 3.5 L Chloride Carbon Dioxide BUN Creatinine Glucose 160 H POC Glucose Calcium 8.2 L Phosphorus Lactate Dehydrogenase Total Creatine Kinase NT-Pro-B Natriuret Pep Albumin Crxbz-8-Obsdpbywv Mwlou-5-Zhkbdtdsn Beta Globulins PEP Interpretation Cholesterol LDL Cholesterol Direct Urine Creatinine 04/14/16 04/14/16 04/14/16 06:02 06:16 09:18 WBC 12.3 H RBC Hgb 11.4 L Hct MCV 82 L MCH 26 L MCHC RDW Plt Count Lymph % (Auto) [place] % (Auto) Lymph # [place] # Baso # Seg Neutrophils % Seg Neuts % (Manual) Lymphocytes % (Manual) Seg Neutrophils # Seg Neutrophils # Man Lymphocytes # (Manual) Monocytes # (Manual) PT INR APTT Heparin Anti-Xa Level POC ABG pH POC ABG pCO2 POC ABG pO2 Sodium Potassium Chloride Carbon Dioxide BUN Creatinine Glucose POC Glucose 156 H 164 H Calcium Phosphorus Lactate Dehydrogenase Total Creatine Kinase NT-Pro-B Natriuret Pep Albumin Huzwl-8-Mnogpjyqr Ujypu-4-Uiylyazyq Beta Globulins PEP Interpretation Cholesterol LDL Cholesterol Direct Urine Creatinine 04/14/16 04/15/16 04/15/16 13:58 01:07 06:04 WBC RBC Hgb Hct MCV MCH MCHC RDW Plt Count Lymph % (Auto) [place] % (Auto) Lymph # [place] # Baso # Seg Neutrophils % Seg Neuts % (Manual) Lymphocytes % (Manual) Seg Neutrophils # Seg Neutrophils # Man Lymphocytes # (Manual) Monocytes # (Manual) PT 24.9 H INR 2.25 H APTT Heparin Anti-Xa Level POC ABG pH POC ABG pCO2 POC ABG pO2 Sodium Potassium Chloride Carbon Dioxide BUN Creatinine Glucose POC Glucose 109 H 154 H Calcium Phosphorus Lactate Dehydrogenase Total Creatine Kinase NT-Pro-B Natriuret Pep Albumin Hgvom-8-Joimusqnf Lkedg-1-Jplndktcz Beta Globulins PEP Interpretation Cholesterol LDL Cholesterol Direct Urine Creatinine 04/15/16 04/15/16 04/16/16 06:08 12:41 00:38 WBC RBC Hgb Hct MCV MCH MCHC RDW Plt Count Lymph % (Auto) [place] % (Auto) Lymph # [place] # Baso # Seg Neutrophils % Seg Neuts % (Manual) Lymphocytes % (Manual) Seg Neutrophils # Seg Neutrophils # Man Lymphocytes # (Manual) Monocytes # (Manual) PT INR APTT Heparin Anti-Xa Level POC ABG pH POC ABG pCO2 POC ABG pO2 Sodium Potassium Chloride Carbon Dioxide BUN Creatinine Glucose POC Glucose 165 H 223 H 216 H Calcium Phosphorus Lactate Dehydrogenase Total Creatine Kinase NT-Pro-B Natriuret Pep Albumin Kcoeb-9-Vvaoktlcq Gvdsn-9-Snmsgydck Beta Globulins PEP Interpretation Cholesterol LDL Cholesterol Direct Urine Creatinine 04/16/16 04/16/16 04/16/16 05:45 07:09 14:00 WBC RBC Hgb Hct MCV MCH MCHC RDW Plt Count Lymph % (Auto) [place] % (Auto) Lymph # [place] # Baso # Seg Neutrophils % Seg Neuts % (Manual) Lymphocytes % (Manual) Seg Neutrophils # Seg Neutrophils # Man Lymphocytes # (Manual) Monocytes # (Manual) PT 19.4 H INR 1.64 H APTT Heparin Anti-Xa Level 0.10 L POC ABG pH POC ABG pCO2 POC ABG pO2 Sodium Potassium Chloride Carbon Dioxide BUN Creatinine Glucose POC Glucose 207 H 69 L Calcium Phosphorus Lactate Dehydrogenase Total Creatine Kinase NT-Pro-B Natriuret Pep Albumin Zsgmt-4-Zjuhqaszy Geyut-9-Lbhsurcto Beta Globulins PEP Interpretation Cholesterol LDL Cholesterol Direct Urine Creatinine 04/16/16 04/16/16 04/16/16 17:40 17:52 19:38 WBC RBC Hgb Hct MCV MCH MCHC RDW Plt Count Lymph % (Auto) [place] % (Auto) Lymph # [place] # Baso # Seg Neutrophils % Seg Neuts % (Manual) Lymphocytes % (Manual) Seg Neutrophils # Seg Neutrophils # Man Lymphocytes # (Manual) Monocytes # (Manual) PT INR APTT Heparin Anti-Xa Level 0.26 L POC ABG pH 7.543 H 7.488 H POC ABG pCO2 26.3 L 30.3 L POC ABG pO2 55 L 203 H Sodium Potassium Chloride Carbon Dioxide BUN Creatinine Glucose POC Glucose Calcium Phosphorus Lactate Dehydrogenase Total Creatine Kinase NT-Pro-B Natriuret Pep Albumin Nfivk-3-Ctsldtmsi Qfjdz-4-Lwyjlresw Beta Globulins PEP Interpretation Cholesterol LDL Cholesterol Direct Urine Creatinine 04/17/16 04/17/16 04/17/16 00:04 05:10 05:36 WBC RBC Hgb Hct MCV MCH MCHC RDW Plt Count Lymph % (Auto) [place] % (Auto) Lymph # [place] # Baso # Seg Neutrophils % Seg Neuts % (Manual) Lymphocytes % (Manual) Seg Neutrophils # Seg Neutrophils # Man Lymphocytes # (Manual) Monocytes # (Manual) PT INR APTT Heparin Anti-Xa Level POC ABG pH POC ABG pCO2 32.7 L POC ABG pO2 68 L Sodium Potassium Chloride Carbon Dioxide BUN Creatinine Glucose POC Glucose 113 H 161 H Calcium Phosphorus Lactate Dehydrogenase Total Creatine Kinase NT-Pro-B Natriuret Pep Albumin Mxdkx-4-Oevaixajm Vhacj-2-Aodcxdvby Beta Globulins PEP Interpretation Cholesterol LDL Cholesterol Direct Urine Creatinine 04/17/16 04/17/16 04/17/16 05:41 08:37 11:46 WBC RBC Hgb Hct MCV MCH MCHC RDW Plt Count Lymph % (Auto) [place] % (Auto) Lymph # [place] # Baso # Seg Neutrophils % Seg Neuts % (Manual) Lymphocytes % (Manual) Seg Neutrophils # Seg Neutrophils # Man Lymphocytes # (Manual) Monocytes # (Manual) PT 17.4 H INR 1.43 H APTT Heparin Anti-Xa Level POC ABG pH POC ABG pCO2 POC ABG pO2 Sodium Potassium Chloride Carbon Dioxide BUN Creatinine Glucose POC Glucose 154 H 138 H Calcium Phosphorus Lactate Dehydrogenase Total Creatine Kinase NT-Pro-B Natriuret Pep Albumin Cqyfh-4-Ivntnzzsy Goris-6-Ltnjnyqvl Beta Globulins PEP Interpretation Cholesterol LDL Cholesterol Direct Urine Creatinine 04/17/16 04/17/16 04/17/16 12:17 12:17 21:20 WBC 16.5 H RBC 3.31 L Hgb 8.8 L Hct 26.9 L MCV 81 L MCH 27 L MCHC RDW 15.5 H Plt Count Lymph % (Auto) [place] % (Auto) Lymph # [place] # Baso # Seg Neutrophils % Seg Neuts % (Manual) Lymphocytes % (Manual) 3.0 L Seg Neutrophils # Seg Neutrophils # Man 10.1 H Lymphocytes # (Manual) 0.5 L Monocytes # (Manual) PT INR APTT Heparin Anti-Xa Level 0.14 L POC ABG pH POC ABG pCO2 POC ABG pO2 Sodium Potassium Chloride Carbon Dioxide 21 L BUN 38 H Creatinine 1.8 H D Glucose 131 H POC Glucose Calcium 7.6 L Phosphorus Lactate Dehydrogenase Total Creatine Kinase NT-Pro-B Natriuret Pep Albumin Kqgtr-1-Gpttsbcba Tkuzo-7-Cpjodqdia Beta Globulins PEP Interpretation Cholesterol LDL Cholesterol Direct Urine Creatinine 04/17/16 04/17/16 04/18/16 23:38 23:41 00:21 WBC RBC Hgb Hct MCV MCH MCHC RDW Plt Count Lymph % (Auto) [place] % (Auto) Lymph # [place] # Baso # Seg Neutrophils % Seg Neuts % (Manual) Lymphocytes % (Manual) Seg Neutrophils # Seg Neutrophils # Man Lymphocytes # (Manual) Monocytes # (Manual) PT INR APTT Heparin Anti-Xa Level POC ABG pH POC ABG pCO2 POC ABG pO2 Sodium Potassium Chloride Carbon Dioxide BUN Creatinine Glucose POC Glucose < 40 L < 40 L 223 H Calcium Phosphorus Lactate Dehydrogenase Total Creatine Kinase NT-Pro-B Natriuret Pep Albumin Ucxeu-4-Fljirflvv Wiqyr-4-Giauu[place]ul Beta Globulins PEP Interpretation Cholesterol LDL Cholesterol Direct Urine Creatinine 04/18/16 04/18/16 04/18/16 05:01 05:20 05:20 WBC 17.6 H RBC 3.44 L Hgb 9.1 L Hct 27.8 L MCV 81 L MCH 26 L MCHC RDW 15.5 H Plt Count Lymph % (Auto) 2.7 L [place] % (Auto) 8.3 H Lymph # 0.5 L [place] # 1.5 H Baso # Seg Neutrophils % 88.4 H Seg Neuts % (Manual) Lymphocytes % (Manual) Seg Neutrophils # 15.6 H Seg Neutrophils # Man Lymphocytes # (Manual) Monocytes # (Manual) PT 17.4 H INR 1.43 H APTT Heparin Anti-Xa Level POC ABG pH 7.528 H POC ABG pCO2 27.9 L POC ABG pO2 Sodium Potassium Chloride Carbon Dioxide BUN Creatinine Glucose POC Glucose Calcium Phosphorus Lactate Dehydrogenase Total Creatine Kinase NT-Pro-B Natriuret Pep Albumin Lppsr-6-Mdrmeoutv Yrmqd-2-Tcuhypgof Beta Globulins PEP Interpretation Cholesterol LDL Cholesterol Direct Urine Creatinine 04/18/16 04/18/16 04/18/16 05:20 05:31 06:50 WBC RBC Hgb Hct MCV MCH MCHC RDW Plt Count Lymph % (Auto) [place] % (Auto) Lymph # [place] # Baso # Seg Neutrophils % Seg Neuts % (Manual) Lymphocytes % (Manual) Seg Neutrophils # Seg Neutrophils # Man Lymphocytes # (Manual) Monocytes # (Manual) PT INR APTT Heparin Anti-Xa Level POC ABG pH POC ABG pCO2 POC ABG pO2 Sodium Potassium 3.4 L Chloride Carbon Dioxide 21 L BUN 22 H Creatinine Glucose POC Glucose 61 L 124 H Calcium 8.0 L Phosphorus Lactate Dehydrogenase Total Creatine Kinase NT-Pro-B Natriuret Pep Albumin Ucbgu-3-Zsbvnliyy Phyod-7-Oqhhkxwvg Beta Globulins PEP Interpretation Cholesterol LDL Cholesterol Direct Urine Creatinine 04/18/16 04/18/16 04/19/16 17:42 22:40 00:31 WBC RBC Hgb Hct MCV MCH MCHC RDW Plt Count Lymph % (Auto) [place] % (Auto) Lymph # [place] # Baso # Seg Neutrophils % Seg Neuts % (Manual) Lymphocytes % (Manual) Seg Neutrophils # Seg Neutrophils # Man Lymphocytes # (Manual) Monocytes # (Manual) PT INR APTT Heparin Anti-Xa Level < 0.10 L POC ABG pH POC ABG pCO2 POC ABG pO2 Sodium Potassium Chloride Carbon Dioxide BUN Creatinine Glucose POC Glucose 159 H 134 H Calcium Phosphorus Lactate Dehydrogenase Total Creatine Kinase NT-Pro-B Natriuret Pep Albumin Qcwaw-9-Tygoorpyj Xairf-9-Irpynxzwy Beta Globulins PEP Interpretation Cholesterol LDL Cholesterol Direct Urine Creatinine 04/19/16 04/19/16 04/19/16 04:18 04:18 04:25 WBC 19.0 H RBC 3.58 L Hgb 9.3 L Hct 28.8 L MCV 80 L MCH 26 L MCHC RDW 15.5 H Plt Count Lymph % (Auto) 2.8 L [place] % (Auto) 7.4 H Lymph # 0.5 L [place] # 1.4 H Baso # Seg Neutrophils % 89.4 H Seg Neuts % (Manual) Lymphocytes % (Manual) Seg Neutrophils # 17.0 H Seg Neutrophils # Man Lymphocytes # (Manual) Monocytes # (Manual) PT INR APTT Heparin Anti-Xa Level POC ABG pH 7.527 H POC ABG pCO2 27.1 L POC ABG pO2 Sodium Potassium Chloride Carbon Dioxide BUN 22 H Creatinine Glucose 215 H POC Glucose Calcium 8.0 L Phosphorus Lactate Dehydrogenase Total Creatine Kinase NT-Pro-B Natriuret Pep Albumin Acoud-2-Pftrgbqlc Thqnq-2-Bfhtdlghd Beta Globulins PEP Interpretation Cholesterol LDL Cholesterol Direct Urine Creatinine 04/19/16 04/19/16 04/19/16 05:45 08:10 14:08 WBC RBC Hgb Hct MCV MCH MCHC RDW Plt Count Lymph % (Auto) [place] % (Auto) Lymph # [place] # Baso # Seg Neutrophils % Seg Neuts % (Manual) Lymphocytes % (Manual) Seg Neutrophils # Seg Neutrophils # Man Lymphocytes # (Manual) Monocytes # (Manual) PT 22.1 H INR 1.93 H APTT Heparin Anti-Xa Level 0.17 L POC ABG pH POC ABG pCO2 POC ABG pO2 Sodium Potassium Chloride Carbon Dioxide BUN Creatinine Glucose POC Glucose 196 H 318 H Calcium Phosphorus Lactate Dehydrogenase Total Creatine Kinase NT-Pro-B Natriuret Pep Albumin Lxxnk-7-Qjygjuapt Aidrw-4-Zaedqjxrq Beta Globulins PEP Interpretation Cholesterol LDL Cholesterol Direct Urine Creatinine 04/19/16 04/20/16 04/20/16 17:27 03:55 03:55 WBC 18.5 H RBC 3.19 L Hgb 8.4 L Hct 25.7 L MCV 80 L MCH 26 L MCHC RDW 15.9 H Plt Count Lymph % (Auto) 4.3 L [place] % (Auto) 10.1 H Lymph # 0.8 L [place] # 1.9 H Baso # Seg Neutrophils % 85.2 H Seg Neuts % (Manual) Lymphocytes % (Manual) Seg Neutrophils # 15.8 H Seg Neutrophils # Man Lymphocytes # (Manual) Monocytes # (Manual) PT 22.0 H INR 1.92 H APTT Heparin Anti-Xa Level 0.14 L POC ABG pH POC ABG pCO2 POC ABG pO2 Sodium Potassium Chloride Carbon Dioxide BUN Creatinine Glucose POC Glucose 230 H Calcium Phosphorus Lactate Dehydrogenase Total Creatine Kinase NT-Pro-B Natriuret Pep Albumin Eammt-0-Sihxyparf Vmgpm-1-Nxdmbajco Beta Globulins PEP Interpretation Cholesterol LDL Cholesterol Direct Urine Creatinine 04/20/16 04/20/16 04/20/16 03:55 04:16 05:52 WBC RBC Hgb Hct MCV MCH MCHC RDW Plt Count Lymph % (Auto) [place] % (Auto) Lymph # [place] # Baso # Seg Neutrophils % Seg Neuts % (Manual) Lymphocytes % (Manual) Seg Neutrophils # Seg Neutrophils # Man Lymphocytes # (Manual) Monocytes # (Manual) PT INR APTT Heparin Anti-Xa Level POC ABG pH 7.474 H POC ABG pCO2 26.5 L POC ABG pO2 Sodium Potassium Chloride Carbon Dioxide 18 L BUN 38 H Creatinine 2.7 H D Glucose 159 H POC Glucose 214 H Calcium 8.0 L Phosphorus Lactate Dehydrogenase Total Creatine Kinase NT-Pro-B Natriuret Pep Albumin Zrkmw-4-Oqldngqpv Ghvwo-1-Klyudxafc Beta Globulins PEP Interpretation Cholesterol LDL Cholesterol Direct Urine Creatinine 04/20/16 04/20/16 04/20/16 10:32 11:27 11:50 WBC RBC Hgb Hct MCV MCH MCHC RDW Plt Count Lymph % (Auto) [place] % (Auto) Lymph # [place] # Baso # Seg Neutrophils % Seg Neuts % (Manual) Lymphocytes % (Manual) Seg Neutrophils # Seg Neutrophils # Man Lymphocytes # (Manual) Monocytes # (Manual) PT INR APTT Heparin Anti-Xa Level POC ABG pH POC ABG pCO2 POC ABG pO2 Sodium Potassium Chloride Carbon Dioxide 20 L BUN 45 H Creatinine 3.0 H Glucose 215 H POC Glucose 248 H Calcium 8.0 L Phosphorus Lactate Dehydrogenase Total Creatine Kinase NT-Pro-B Natriuret Pep Albumin Veexq-1-Zmnikwerv Lhmlx-1-Jyxkpqsim Beta Globulins PEP Interpretation Cholesterol LDL Cholesterol Direct Urine Creatinine 85.5 H 04/20/16 04/21/16 04/21/16 16:59 00:13 04:29 WBC RBC Hgb Hct MCV MCH MCHC RDW Plt Count Lymph % (Auto) [place] % (Auto) Lymph # [place] # Baso # Seg Neutrophils % Seg Neuts % (Manual) Lymphocytes % (Manual) Seg Neutrophils # Seg Neutrophils # Man Lymphocytes # (Manual) Monocytes # (Manual) PT 18.1 H INR 1.50 H APTT Heparin Anti-Xa Level 0.10 L POC ABG pH POC ABG pCO2 POC ABG pO2 Sodium Potassium Chloride Carbon Dioxide BUN Creatinine Glucose POC Glucose 312 H 287 H Calcium Phosphorus Lactate Dehydrogenase Total Creatine Kinase NT-Pro-B Natriuret Pep Albumin Hxhav-4-Hllijbdbu Pokog-0-Nlmomwnjs Beta Globulins PEP Interpretation Cholesterol LDL Cholesterol Direct Urine Creatinine 04/21/16 04/21/16 04/21/16 04:29 04:29 04:55 WBC 15.4 H RBC 3.24 L Hgb 8.4 L Hct 25.6 L MCV 79 L MCH 26 L MCHC RDW 16.1 H Plt Count Lymph % (Auto) 6.8 L [place] % (Auto) 12.9 H Lymph # 1.0 L [place] # 2.0 H Baso # Seg Neutrophils % 79.8 H Seg Neuts % (Manual) Lymphocytes % (Manual) Seg Neutrophils # 12.3 H Seg Neutrophils # Man Lymphocytes # (Manual) Monocytes # (Manual) PT INR APTT Heparin Anti-Xa Level POC ABG pH 7.512 H POC ABG pCO2 25.4 L POC ABG pO2 Sodium 135 L Potassium Chloride Carbon Dioxide 18 L BUN 57 H Creatinine 3.9 H Glucose 202 H POC Glucose Calcium 8.0 L Phosphorus Lactate Dehydrogenase Total Creatine Kinase NT-Pro-B Natriuret Pep Albumin Gqsrp-9-Pwcngyazi Trlut-1-[place] Beta Globulins PEP Interpretation Cholesterol LDL Cholesterol Direct Urine Creatinine 04/21/16 04/21/16 04/21/16 05:20 12:08 12:16 WBC RBC Hgb Hct MCV MCH MCHC RDW Plt Count Lymph % (Auto) [place] % (Auto) Lymph # [place] # Baso # Seg Neutrophils % Seg Neuts % (Manual) Lymphocytes % (Manual) Seg Neutrophils # Seg Neutrophils # Man Lymphocytes # (Manual) Monocytes # (Manual) PT INR APTT Heparin Anti-Xa Level 0.16 L POC ABG pH POC ABG pCO2 POC ABG pO2 Sodium Potassium Chloride Carbon Dioxide BUN Creatinine Glucose POC Glucose 203 H 221 H Calcium Phosphorus Lactate Dehydrogenase Total Creatine Kinase NT-Pro-B Natriuret Pep Albumin Nhgdg-6-Nvhlnudgo Dbxrd-9-Okscvvtxr Beta Globulins PEP Interpretation Cholesterol LDL Cholesterol Direct Urine Creatinine 04/21/16 04/22/16 04/22/16 17:22 05:01 05:20 WBC RBC Hgb Hct MCV MCH MCHC RDW Plt Count Lymph % (Auto) [place] % (Auto) Lymph # [place] # Baso # Seg Neutrophils % Seg Neuts % (Manual) Lymphocytes % (Manual) Seg Neutrophils # Seg Neutrophils # Man Lymphocytes # (Manual) Monocytes # (Manual) PT 17.5 H INR 1.44 H APTT Heparin Anti-Xa Level POC ABG pH 7.460 H POC ABG pCO2 27.9 L POC ABG pO2 Sodium Potassium Chloride Carbon Dioxide BUN Creatinine Glucose POC Glucose 189 H Calcium Phosphorus Lactate Dehydrogenase Total Creatine Kinase NT-Pro-B Natriuret Pep Albumin Fgsck-9-Mubvuntmj Kiwhr-1-Qtwqkuxrm Beta Globulins PEP Interpretation Cholesterol LDL Cholesterol Direct Urine Creatinine 04/22/16 04/22/16 04/22/16 05:43 06:40 08:08 WBC RBC Hgb Hct MCV MCH MCHC RDW Plt Count Lymph % (Auto) [place] % (Auto) Lymph # [place] # Baso # Seg Neutrophils % Seg Neuts % (Manual) Lymphocytes % (Manual) Seg Neutrophils # Seg Neutrophils # Man Lymphocytes # (Manual) Monocytes # (Manual) PT INR APTT Heparin Anti-Xa Level POC ABG pH POC ABG pCO2 POC ABG pO2 Sodium Potassium Chloride Carbon Dioxide BUN Creatinine Glucose POC Glucose 56 L 136 H 134 H Calcium Phosphorus Lactate Dehydrogenase Total Creatine Kinase NT-Pro-B Natriuret Pep Albumin Alzfe-2-Gcljxawdj Jhqju-4-Lrpjzcazi Beta Globulins PEP Interpretation Cholesterol LDL Cholesterol Direct Urine Creatinine 04/22/16 04/22/16 04/22/16 11:18 12:10 18:17 WBC RBC Hgb Hct MCV MCH MCHC RDW Plt Count Lymph % (Auto) [place] % (Auto) Lymph # [place] # Baso # Seg Neutrophils % Seg Neuts % (Manual) Lymphocytes % (Manual) Seg Neutrophils # Seg Neutrophils # Man Lymphocytes # (Manual) Monocytes # (Manual) PT INR APTT Heparin Anti-Xa Level 0.12 L POC ABG pH POC ABG pCO2 POC ABG pO2 Sodium Potassium Chloride Carbon Dioxide BUN Creatinine Glucose POC Glucose 142 H 227 H Calcium Phosphorus Lactate Dehydrogenase Total Creatine Kinase NT-Pro-B Natriuret Pep Albumin Fwghd-5-Mbnsefwdr Wcoqt-0-Nxddakqds Beta Globulins PEP Interpretation Cholesterol LDL Cholesterol Direct Urine Creatinine 04/22/16 04/22/16 04/23/16 22:28 23:47 04:49 WBC RBC Hgb Hct MCV MCH MCHC RDW Plt Count Lymph % (Auto) [place] % (Auto) Lymph # [place] # Baso # Seg Neutrophils % Seg Neuts % (Manual) Lymphocytes % (Manual) Seg Neutrophils # Seg Neutrophils # Man Lymphocytes # (Manual) Monocytes # (Manual) PT INR APTT Heparin Anti-Xa Level 0.16 L POC ABG pH POC ABG pCO2 32.6 L POC ABG pO2 122 H Sodium Potassium Chloride Carbon Dioxide BUN Creatinine Glucose POC Glucose 266 H Calcium Phosphorus Lactate Dehydrogenase Total Creatine Kinase NT-Pro-B Natriuret Pep Albumin Riica-8-Bvhysogus Ljpjz-4-Wclcgweou Beta Globulins PEP Interpretation Cholesterol LDL Cholesterol Direct Urine Creatinine 04/23/16 04/23/16 04/23/16 05:41 08:05 08:34 WBC RBC Hgb Hct MCV MCH MCHC RDW Plt Count Lymph % (Auto) [place] % (Auto) Lymph # [place] # Baso # Seg Neutrophils % Seg Neuts % (Manual) Lymphocytes % (Manual) Seg Neutrophils # Seg Neutrophils # Man Lymphocytes # (Manual) Monocytes # (Manual) PT INR APTT Heparin Anti-Xa Level POC ABG pH POC ABG pCO2 POC ABG pO2 Sodium Potassium Chloride 109.5 H Carbon Dioxide 21 L BUN 23 H Creatinine Glucose 227 H POC Glucose 227 H 224 H Calcium 8.2 L Phosphorus Lactate Dehydrogenase Total Creatine Kinase NT-Pro-B Natriuret Pep Albumin Acwwe-4-Zbrbebazo Xbohs-7-Glchmihmt Beta Globulins PEP Interpretation Cholesterol LDL Cholesterol Direct Urine Creatinine 04/23/16 04/23/16 04/23/16 10:45 11:37 22:49 WBC RBC Hgb Hct MCV MCH MCHC RDW Plt Count Lymph % (Auto) [place] % (Auto) Lymph # [place] # Baso # Seg Neutrophils % Seg Neuts % (Manual) Lymphocytes % (Manual) Seg Neutrophils # Seg Neutrophils # Man Lymphocytes # (Manual) Monocytes # (Manual) PT 15.9 H INR 1.28 H APTT Heparin Anti-Xa Level 0.12 L POC ABG pH POC ABG pCO2 POC ABG pO2 Sodium Potassium Chloride Carbon Dioxide BUN Creatinine Glucose POC Glucose 256 H Calcium Phosphorus Lactate Dehydrogenase Total Creatine Kinase NT-Pro-B Natriuret Pep Albumin Lyzsb-7-Ovftbzqjq Motua-7-Gxwbctynd Beta Globulins PEP Interpretation Cholesterol LDL Cholesterol Direct Urine Creatinine 04/23/16 04/24/16 04/24/16 23:59 05:29 06:03 WBC RBC Hgb Hct MCV MCH MCHC RDW Plt Count Lymph % (Auto) [place] % (Auto) Lymph # [place] # Baso # Seg Neutrophils % Seg Neuts % (Manual) Lymphocytes % (Manual) Seg Neutrophils # Seg Neutrophils # Man Lymphocytes # (Manual) Monocytes # (Manual) PT INR APTT Heparin Anti-Xa Level POC ABG pH 7.464 H POC ABG pCO2 32.4 L POC ABG pO2 115 H Sodium Potassium Chloride Carbon Dioxide BUN Creatinine Glucose POC Glucose 176 H 256 H Calcium Phosphorus Lactate Dehydrogenase Total Creatine Kinase NT-Pro-B Natriuret Pep Albumin Ueikh-6-Jdynxbtki Bsssa-9-Eumdhyfnf Beta Globulins PEP Interpretation Cholesterol LDL Cholesterol Direct Urine Creatinine 04/24/16 04/24/16 04/24/16 07:59 12:10 17:17 WBC RBC Hgb Hct MCV MCH MCHC RDW Plt Count Lymph % (Auto) [place] % (Auto) Lymph # [place] # Baso # Seg Neutrophils % Seg Neuts % (Manual) Lymphocytes % (Manual) Seg Neutrophils # Seg Neutrophils # Man Lymphocytes # (Manual) Monocytes # (Manual) PT INR APTT Heparin Anti-Xa Level 0.18 L POC ABG pH POC ABG pCO2 POC ABG pO2 Sodium Potassium Chloride Carbon Dioxide BUN Creatinine Glucose POC Glucose 304 H 325 H Calcium Phosphorus Lactate Dehydrogenase Total Creatine Kinase NT-Pro-B Natriuret Pep Albumin Mjhmd-0-Laxhsepdm Cyylz-4-Nxbpyxheb Beta Globulins PEP Interpretation Cholesterol LDL Cholesterol Direct Urine Creatinine 04/25/16 04/25/16 04/25/16 00:52 06:40 06:44 WBC RBC Hgb Hct MCV MCH MCHC RDW Plt Count Lymph % (Auto) [place] % (Auto) Lymph # [place] # Baso # Seg Neutrophils % Seg Neuts % (Manual) Lymphocytes % (Manual) Seg Neutrophils # Seg Neutrophils # Man Lymphocytes # (Manual) Monocytes # (Manual) PT INR APTT Heparin Anti-Xa Level 0.11 L POC ABG pH POC ABG pCO2 POC ABG pO2 Sodium Potassium Chloride Carbon Dioxide BUN Creatinine Glucose POC Glucose 212 H 184 H Calcium Phosphorus Lactate Dehydrogenase Total Creatine Kinase NT-Pro-B Natriuret Pep Albumin Pelty-3-Gibmlrewc Qhahp-0-Vwushoycs Beta Globulins PEP Interpretation Cholesterol LDL Cholesterol Direct Urine Creatinine 04/25/16 04/25/16 11:40 13:26 WBC RBC Hgb Hct MCV MCH MCHC RDW Plt Count Lymph % (Auto) [place] % (Auto) Lymph # [place] # Baso # Seg Neutrophils % Seg Neuts % (Manual) Lymphocytes % (Manual) Seg Neutrophils # Seg Neutrophils # Man Lymphocytes # (Manual) Monocytes # (Manual) PT INR APTT Heparin Anti-Xa Level 0.21 L POC ABG pH POC ABG pCO2 POC ABG pO2 Sodium Potassium Chloride Carbon Dioxide BUN Creatinine Glucose POC Glucose 206 H Calcium Phosphorus Lactate Dehydrogenase Total Creatine Kinase NT-Pro-B Natriuret Pep Albumin Ktdco-5-Ajldddxeb Cbrrn-9-Lupmvqzre Beta Globulins PEP Interpretation Cholesterol LDL Cholesterol Direct Urine Creatinine
--- NOTE | 2016-04-25 14:58 | Progress Note ---
Subjective Date of service: 04/25/16 Principal diagnosis: CVA, acute respiratory failure Interval history: Patient remain relatively unresponsive, orally intubated. No change in his condition. Patient on mechanical ventilator Objective Vital Signs - 12hr 04/25/16 04/25/16 04/25/16 02:59 03:00 03:30 Temperature Pulse Rate 67 72 67 Pulse Rate [ Anterior Bilateral Throughout] Pulse Rate [ Apical] Pulse Rate [ From Monitor] Respiratory 14 14 14 Rate Respiratory Rate [Anterior Bilateral Throughout] Blood Pressure 120/62 117/60 121/64 O2 Sat by Pulse 100 100 100 Oximetry 04/25/16 04/25/16 04/25/16 04:00 04:30 05:00 Temperature 99.9 F H Pulse Rate 72 75 82 Pulse Rate [ Anterior Bilateral Throughout] Pulse Rate [ Apical] Pulse Rate [ 75 From Monitor] Respiratory 14 14 Rate Respiratory Rate [Anterior Bilateral Throughout] Blood Pressure 125/65 128/67 122/77 O2 Sat by Pulse 100 100 100 Oximetry 04/25/16 04/25/16 04/25/16 05:01 05:31 05:53 Temperature Pulse Rate 77 81 Pulse Rate [ Anterior Bilateral Throughout] Pulse Rate [ Apical] Pulse Rate [ From Monitor] Respiratory 13 21 Rate Respiratory Rate [Anterior Bilateral Throughout] Blood Pressure 122/77 122/77 122/77 O2 Sat by Pulse 100 99 100 Oximetry 04/25/16 04/25/16 04/25/16 06:01 06:30 06:59 Temperature Pulse Rate 79 77 76 Pulse Rate [ Anterior Bilateral Throughout] Pulse Rate [ Apical] Pulse Rate [ From Monitor] Respiratory 15 16 16 Rate Respiratory Rate [Anterior Bilateral Throughout] Blood Pressure 122/77 133/67 133/67 O2 Sat by Pulse 99 99 99 Oximetry 04/25/16 04/25/16 04/25/16 07:00 07:03 07:30 Temperature 97.7 F Pulse Rate 79 77 Pulse Rate [ Anterior Bilateral Throughout] Pulse Rate [ Apical] Pulse Rate [ From Monitor] Respiratory 11 L 19 Rate Respiratory Rate [Anterior Bilateral Throughout] Blood Pressure 128/64 129/67 O2 Sat by Pulse 100 100 Oximetry 04/25/16 04/25/16 04/25/16 08:00 08:01 08:15 Temperature Pulse Rate 88 86 Pulse Rate [ 78 79 Anterior Bilateral Throughout] Pulse Rate [ 75 Apical] Pulse Rate [ 75 From Monitor] Respiratory 23 20 Rate Respiratory 21 18 Rate [Anterior Bilateral Throughout] Blood Pressure 155/78 155/78 O2 Sat by Pulse 98 100 Oximetry 04/25/16 04/25/16 04/25/16 08:30 09:00 09:16 Temperature Pulse Rate 79 86 83 Pulse Rate [ Anterior Bilateral Throughout] Pulse Rate [ Apical] Pulse Rate [ From Monitor] Respiratory 14 23 21 Rate Respiratory Rate [Anterior Bilateral Throughout] Blood Pressure 135/67 136/70 O2 Sat by Pulse 100 100 97 Oximetry 04/25/16 04/25/16 04/25/16 09:30 10:00 10:30 Temperature Pulse Rate 84 76 80 Pulse Rate [ Anterior Bilateral Throughout] Pulse Rate [ Apical] Pulse Rate [ From Monitor] Respiratory 19 23 17 Rate Respiratory Rate [Anterior Bilateral Throughout] Blood Pressure 130/65 130/66 133/73 O2 Sat by Pulse 98 98 100 Oximetry 04/25/16 04/25/16 04/25/16 11:00 11:30 11:54 Temperature 99.9 F H Pulse Rate 83 81 Pulse Rate [ Anterior Bilateral Throughout] Pulse Rate [ Apical] Pulse Rate [ From Monitor] Respiratory 29 H 26 H Rate Respiratory Rate [Anterior Bilateral Throughout] Blood Pressure 134/72 128/68 O2 Sat by Pulse 99 98 Oximetry 04/25/16 04/25/16 04/25/16 12:00 12:30 13:00 Temperature Pulse Rate 80 79 74 Pulse Rate [ Anterior Bilateral Throughout] Pulse Rate [ Apical] Pulse Rate [ From Monitor] Respiratory 22 22 21 Rate Respiratory Rate [Anterior Bilateral Throughout] Blood Pressure 139/74 128/65 117/61 O2 Sat by Pulse 100 99 100 Oximetry 04/25/16 04/25/16 04/25/16 13:53 14:00 14:15 Temperature Pulse Rate 77 Pulse Rate [ 77 77 Anterior Bilateral Throughout] Pulse Rate [ Apical] Pulse Rate [ From Monitor] Respiratory Rate Respiratory 18 18 Rate [Anterior Bilateral Throughout] Blood Pressure 136/75 O2 Sat by Pulse Oximetry Constitutional: no acute distress, comatose Eyes: non-icteric ENT: other (orally intubated and sedated) Neck: supple Effort: normal Ascultation: Bilateral: clear, rhonchi (occasional) Percussion: Bilateral: not dull Cardiovascular: regular rate and rhythm, irregular rhythm Gastrointestinal: normoactive bowel sounds, soft, non-tender Extremities: no cyanosis, no edema Neurologic: other (GCS 4) CBC and BMP: 04/21/16 04:29 04/23/16 08:34 ABG, PT/INR, D-dimer: ABG POC ABG pH 7.464 (7.35-7.45) H 04/24/16 06:03 POC ABG pCO2 32.4 (35-45) L 04/24/16 06:03 POC ABG pO2 115 (80-105) H 04/24/16 06:03 POC ABG HCO3 23.3 04/24/16 06:03 POC ABG Total CO2 24 04/24/16 06:03 POC ABG O2 Sat 99 04/24/16 06:03 PT/INR, D-dimer PT 15.9 Sec. (12.2-14.9) H 04/23/16 10:45 INR 1.28 (0.87-1.13) H 04/23/16 10:45 Abnormal lab findings: Abnormal Labs 03/24/16 03/24/16 03/24/16 17:58 20:25 23:23 WBC RBC Hgb Hct MCV MCH MCHC RDW Plt Count Lymph % (Auto) [place] % (Auto) Lymph # [place] # Baso # Seg Neutrophils % Seg Neuts % (Manual) Lymphocytes % (Manual) Seg Neutrophils # Seg Neutrophils # Man Lymphocytes # (Manual) Monocytes # (Manual) PT INR APTT Heparin Anti-Xa Level POC ABG pH POC ABG pCO2 POC ABG pO2 Sodium 169 H* Potassium 3.5 L Chloride 130.3 H Carbon Dioxide BUN 28 H Creatinine 1.8 H Glucose POC Glucose 112 H Calcium Phosphorus Lactate Dehydrogenase Total Creatine Kinase NT-Pro-B Natriuret Pep Albumin Uutrk-4-Elnpsvevb Fbcyw-8-Nawrrpisq Beta Globulins PEP Interpretation Cholesterol 221 H LDL Cholesterol Direct 146 H Urine Creatinine 03/25/16 03/25/16 03/25/16 05:56 05:56 05:56 WBC 21.3 H RBC 6.32 H Hgb 16.7 H Hct 52.7 H MCV 83 L MCH 27 L MCHC RDW Plt Count Lymph % (Auto) [place] % (Auto) Lymph # [place] # Baso # Seg Neutrophils % Seg Neuts % (Manual) 91.0 H Lymphocytes % (Manual) 4.0 L Seg Neutrophils # Seg Neutrophils # Man 19.4 H Lymphocytes # (Manual) 0.9 L Monocytes # (Manual) 0.9 H PT INR APTT Heparin Anti-Xa Level POC ABG pH POC ABG pCO2 POC ABG pO2 Sodium 172 H* Potassium 3.5 L Chloride 130.4 H Carbon Dioxide BUN 29 H Creatinine 1.8 H Glucose 187 H POC Glucose Calcium Phosphorus Lactate Dehydrogenase 460 H Total Creatine Kinase NT-Pro-B Natriuret Pep Albumin Kxkqn-7-Ddstkbgxc Cwmjy-6-Fywponwnp Beta Globulins PEP Interpretation Cholesterol LDL Cholesterol Direct Urine Creatinine 03/25/16 03/25/16 03/25/16 07:55 12:19 13:00 WBC RBC Hgb Hct MCV MCH MCHC RDW Plt Count Lymph % (Auto) [place] % (Auto) Lymph # [place] # Baso # Seg Neutrophils % Seg Neuts % (Manual) Lymphocytes % (Manual) Seg Neutrophils # Seg Neutrophils # Man Lymphocytes # (Manual) Monocytes # (Manual) PT INR APTT Heparin Anti-Xa Level POC ABG pH POC ABG pCO2 POC ABG pO2 Sodium Potassium Chloride Carbon Dioxide BUN Creatinine Glucose POC Glucose 231 H 314 H Calcium Phosphorus Lactate Dehydrogenase Total Creatine Kinase NT-Pro-B Natriuret Pep Albumin 3.4 L Zzxuu-5-Qaykizhrz 0.4 H Bmdmc-0-Vbrdkwyjc 1.1 H Beta Globulins 0.6 H PEP Interpretation see below H Cholesterol LDL Cholesterol Direct Urine Creatinine 03/25/16 03/25/16 03/26/16 16:41 22:45 08:32 WBC RBC Hgb Hct MCV MCH MCHC RDW Plt Count Lymph % (Auto) [place] % (Auto) Lymph # [place] # Baso # Seg Neutrophils % Seg Neuts % (Manual) Lymphocytes % (Manual) Seg Neutrophils # Seg Neutrophils # Man Lymphocytes # (Manual) Monocytes # (Manual) PT INR APTT Heparin Anti-Xa Level POC ABG pH POC ABG pCO2 POC ABG pO2 Sodium Potassium Chloride Carbon Dioxide BUN Creatinine Glucose POC Glucose 444 H 326 H 360 H Calcium Phosphorus Lactate Dehydrogenase Total Creatine Kinase NT-Pro-B Natriuret Pep Albumin Urriq-8-Nvfjrawtx Fnmjz-7-Ihsbziubp Beta Globulins PEP Interpretation Cholesterol LDL Cholesterol Direct Urine Creatinine 03/26/16 03/26/16 03/26/16 12:38 15:33 15:47 WBC RBC Hgb Hct MCV MCH MCHC RDW Plt Count Lymph % (Auto) [place] % (Auto) Lymph # [place] # Baso # Seg Neutrophils % Seg Neuts % (Manual) Lymphocytes % (Manual) Seg Neutrophils # Seg Neutrophils # Man Lymphocytes # (Manual) Monocytes # (Manual) PT INR APTT Heparin Anti-Xa Level POC ABG pH 7.511 H POC ABG pCO2 26.5 L POC ABG pO2 70 L Sodium Potassium Chloride Carbon Dioxide BUN Creatinine Glucose POC Glucose 280 H 174 H Calcium Phosphorus Lactate Dehydrogenase Total Creatine Kinase NT-Pro-B Natriuret Pep Albumin Mnhoh-9-Mnihkowjs Eelsn-6-Kjbknvqqg Beta Globulins PEP Interpretation Cholesterol LDL Cholesterol Direct Urine Creatinine 03/26/16 03/26/16 03/26/16 16:47 16:47 18:51 WBC 14.0 H RBC 5.17 H Hgb Hct MCV MCH 26 L MCHC 31 L RDW Plt Count 139 L Lymph % (Auto) [place] % (Auto) Lymph # [place] # Baso # Seg Neutrophils % Seg Neuts % (Manual) Lymphocytes % (Manual) Seg Neutrophils # Seg Neutrophils # Man Lymphocytes # (Manual) Monocytes # (Manual) PT INR APTT Heparin Anti-Xa Level POC ABG pH POC ABG pCO2 33.9 L POC ABG pO2 150 H Sodium 164 H* Potassium 3.4 L Chloride 128.5 H Carbon Dioxide BUN 30 H Creatinine 2.2 H Glucose 121 H POC Glucose Calcium 8.1 L Phosphorus Lactate Dehydrogenase Total Creatine Kinase NT-Pro-B Natriuret Pep Albumin Mydwq-6-Uiddknalt Zayww-4-Nrudqrbul Beta Globulins PEP Interpretation Cholesterol LDL Cholesterol Direct Urine Creatinine 03/27/16 03/27/16 03/27/16 02:19 05:47 06:02 WBC RBC Hgb Hct MCV MCH MCHC RDW Plt Count Lymph % (Auto) [place] % (Auto) Lymph # [place] # Baso # Seg Neutrophils % Seg Neuts % (Manual) Lymphocytes % (Manual) Seg Neutrophils # Seg Neutrophils # Man Lymphocytes # (Manual) Monocytes # (Manual) PT INR APTT Heparin Anti-Xa Level POC ABG pH POC ABG pCO2 27.3 L 30.3 L POC ABG pO2 50 L 112 H Sodium 158 H Potassium Chloride 126.7 H Carbon Dioxide 20 L BUN 25 H Creatinine 1.7 H Glucose POC Glucose Calcium 7.0 L Phosphorus Lactate Dehydrogenase Total Creatine Kinase NT-Pro-B Natriuret Pep Albumin Tguxq-6-Thnhklwmk Izzyv-8-Vojkvlfaa Beta Globulins PEP Interpretation Cholesterol LDL Cholesterol Direct Urine Creatinine 03/27/16 03/27/16 03/27/16 07:51 09:20 11:45 WBC 14.2 H RBC Hgb Hct MCV 83 L MCH 27 L MCHC RDW Plt Count 113 L Lymph % (Auto) [place] % (Auto) Lymph # [place] # Baso # Seg Neutrophils % Seg Neuts % (Manual) Lymphocytes % (Manual) Seg Neutrophils # Seg Neutrophils # Man Lymphocytes # (Manual) Monocytes # (Manual) PT INR APTT Heparin Anti-Xa Level POC ABG pH POC ABG pCO2 POC ABG pO2 Sodium Potassium Chloride Carbon Dioxide BUN Creatinine Glucose POC Glucose 124 H 241 H Calcium Phosphorus Lactate Dehydrogenase Total Creatine Kinase NT-Pro-B Natriuret Pep Albumin Topks-4-Gkjrkswnq Bimzo-5-Xgywlzhaf Beta Globulins PEP Interpretation Cholesterol LDL Cholesterol Direct Urine Creatinine 03/27/16 03/27/16 03/28/16 16:39 22:03 03:29 WBC RBC Hgb Hct MCV MCH MCHC RDW Plt Count Lymph % (Auto) [place] % (Auto) Lymph # [place] # Baso # Seg Neutrophils % Seg Neuts % (Manual) Lymphocytes % (Manual) Seg Neutrophils # Seg Neutrophils # Man Lymphocytes # (Manual) Monocytes # (Manual) PT INR APTT Heparin Anti-Xa Level POC ABG pH POC ABG pCO2 POC ABG pO2 Sodium Potassium Chloride Carbon Dioxide BUN Creatinine Glucose POC Glucose 266 H 167 H 241 H Calcium Phosphorus Lactate Dehydrogenase Total Creatine Kinase NT-Pro-B Natriuret Pep Albumin Kcjsu-1-Yhnftozmg Bhzkc-9-Blqhlnkqo Beta Globulins PEP Interpretation Cholesterol LDL Cholesterol Direct Urine Creatinine 03/28/16 03/28/16 03/28/16 05:00 05:00 05:00 WBC RBC Hgb Hct MCV 83 L MCH 27 L MCHC RDW Plt Count 106 L Lymph % (Auto) [place] % (Auto) 10.1 H Lymph # [place] # 1.0 H Baso # Seg Neutrophils % 75.1 H Seg Neuts % (Manual) Lymphocytes % (Manual) Seg Neutrophils # Seg Neutrophils # Man Lymphocytes # (Manual) Monocytes # (Manual) PT INR APTT Heparin Anti-Xa Level POC ABG pH POC ABG pCO2 POC ABG pO2 Sodium 147 H D Potassium 3.1 L D Chloride 112.3 H Carbon Dioxide 21 L BUN Creatinine Glucose 208 H POC Glucose Calcium 7.0 L Phosphorus 2.2 L Lactate Dehydrogenase Total Creatine Kinase NT-Pro-B Natriuret Pep Albumin Dxdbs-7-Dpxxkpjuj Injki-3-Kedbiqctm Beta Globulins PEP Interpretation Cholesterol LDL Cholesterol Direct Urine Creatinine 03/28/16 03/28/16 03/28/16 05:14 08:41 10:56 WBC RBC Hgb Hct MCV MCH MCHC RDW Plt Count Lymph % (Auto) [place] % (Auto) Lymph # [place] # Baso # Seg Neutrophils % Seg Neuts % (Manual) Lymphocytes % (Manual) Seg Neutrophils # Seg Neutrophils # Man Lymphocytes # (Manual) Monocytes # (Manual) PT INR APTT Heparin Anti-Xa Level POC ABG pH 7.457 H POC ABG pCO2 29.7 L 27.7 L POC ABG pO2 Sodium Potassium Chloride Carbon Dioxide BUN Creatinine Glucose POC Glucose 228 H Calcium Phosphorus Lactate Dehydrogenase Total Creatine Kinase NT-Pro-B Natriuret Pep Albumin Ucqyd-7-Akavhznbw Pwaky-4-Xlzikoouj Beta Globulins PEP Interpretation Cholesterol LDL Cholesterol Direct Urine Creatinine 03/28/16 03/28/16 03/28/16 11:37 13:29 16:22 WBC RBC Hgb Hct MCV MCH MCHC RDW Plt Count Lymph % (Auto) [place] % (Auto) Lymph # [place] # Baso # Seg Neutrophils % Seg Neuts % (Manual) Lymphocytes % (Manual) Seg Neutrophils # Seg Neutrophils # Man Lymphocytes # (Manual) Monocytes # (Manual) PT INR APTT Heparin Anti-Xa Level POC ABG pH POC ABG pCO2 POC ABG pO2 Sodium Potassium Chloride Carbon Dioxide BUN Creatinine Glucose POC Glucose 226 H 200 H Calcium Phosphorus Lactate Dehydrogenase Total Creatine Kinase 356 H NT-Pro-B Natriuret Pep Albumin Mpyke-4-Nqtdhjdwl Tnsrl-0-Pbtdjbruj Beta Globulins PEP Interpretation Cholesterol LDL Cholesterol Direct Urine Creatinine 03/28/16 03/29/16 03/29/16 21:48 04:50 04:50 WBC RBC Hgb 11.5 L Hct 35.3 L MCV 81 L MCH 26 L MCHC RDW Plt Count 97 L Lymph % (Auto) [place] % (Auto) 11.7 H Lymph # [place] # 1.1 H Baso # Seg Neutrophils % Seg Neuts % (Manual) Lymphocytes % (Manual) Seg Neutrophils # Seg Neutrophils # Man Lymphocytes # (Manual) Monocytes # (Manual) PT INR APTT Heparin Anti-Xa Level POC ABG pH POC ABG pCO2 POC ABG pO2 Sodium 136 L D Potassium 3.3 L Chloride Carbon Dioxide 20 L BUN Creatinine Glucose 386 H POC Glucose 188 H Calcium 6.8 L Phosphorus 1.6 L D Lactate Dehydrogenase Total Creatine Kinase NT-Pro-B Natriuret Pep Albumin Vjomn-2-Euvnajjxr Ctqfh-9-Gxxofmdvs Beta Globulins PEP Interpretation Cholesterol LDL Cholesterol Direct Urine Creatinine 03/29/16 03/29/16 03/29/16 08:10 11:12 16:09 WBC RBC Hgb Hct MCV MCH MCHC RDW Plt Count Lymph % (Auto) [place] % (Auto) Lymph # [place] # Baso # Seg Neutrophils % Seg Neuts % (Manual) Lymphocytes % (Manual) Seg Neutrophils # Seg Neutrophils # Man Lymphocytes # (Manual) Monocytes # (Manual) PT INR APTT Heparin Anti-Xa Level POC ABG pH POC ABG pCO2 POC ABG pO2 Sodium Potassium Chloride Carbon Dioxide BUN Creatinine Glucose POC Glucose 230 H 180 H 46 L Calcium Phosphorus Lactate Dehydrogenase Total Creatine Kinase NT-Pro-B Natriuret Pep Albumin Ncxkn-7-Nxfcmjppj Ejiiv-3-Tpxvnqebh Beta Globulins PEP Interpretation Cholesterol LDL Cholesterol Direct Urine Creatinine 03/29/16 03/29/16 03/30/16 16:12 18:15 02:53 WBC RBC Hgb Hct MCV MCH MCHC RDW Plt Count Lymph % (Auto) [place] % (Auto) Lymph # [place] # Baso # Seg Neutrophils % Seg Neuts % (Manual) Lymphocytes % (Manual) Seg Neutrophils # Seg Neutrophils # Man Lymphocytes # (Manual) Monocytes # (Manual) PT INR APTT Heparin Anti-Xa Level POC ABG pH POC ABG pCO2 POC ABG pO2 Sodium Potassium Chloride Carbon Dioxide BUN Creatinine Glucose POC Glucose 52 L 118 H 130 H Calcium Phosphorus Lactate Dehydrogenase Total Creatine Kinase NT-Pro-B Natriuret Pep Albumin Rcbng-3-Booblegqy Yfpmt-2-Blpasiadf Beta Globulins PEP Interpretation Cholesterol LDL Cholesterol Direct Urine Creatinine 03/30/16 03/30/16 03/30/16 04:00 04:00 05:29 WBC RBC Hgb Hct MCV 81 L MCH 26 L MCHC RDW Plt Count 116 L Lymph % (Auto) 10.8 L [place] % (Auto) 13.1 H Lymph # 1.0 L [place] # 1.3 H Baso # Seg Neutrophils % 74.2 H Seg Neuts % (Manual) Lymphocytes % (Manual) Seg Neutrophils # Seg Neutrophils # Man Lymphocytes # (Manual) Monocytes # (Manual) PT INR APTT Heparin Anti-Xa Level POC ABG pH 7.522 H POC ABG pCO2 22.7 L POC ABG pO2 137 H Sodium 147 H D Potassium Chloride 115.5 H Carbon Dioxide 20 L BUN Creatinine Glucose 116 H POC Glucose Calcium 7.6 L Phosphorus 2.3 L D Lactate Dehydrogenase Total Creatine Kinase NT-Pro-B Natriuret Pep Albumin Epxnj-6-Jqbxzresl Bdhbb-0-Dbujyqxlk Beta Globulins PEP Interpretation Cholesterol LDL Cholesterol Direct Urine Creatinine 03/30/16 03/30/16 03/30/16 05:47 08:05 08:59 WBC RBC Hgb Hct MCV MCH MCHC RDW Plt Count Lymph % (Auto) [place] % (Auto) Lymph # [place] # Baso # Seg Neutrophils % Seg Neuts % (Manual) Lymphocytes % (Manual) Seg Neutrophils # Seg Neutrophils # Man Lymphocytes # (Manual) Monocytes # (Manual) PT INR APTT Heparin Anti-Xa Level POC ABG pH POC ABG pCO2 26.2 L POC ABG pO2 115 H Sodium Potassium Chloride Carbon Dioxide BUN Creatinine Glucose POC Glucose 138 H 171 H Calcium Phosphorus Lactate Dehydrogenase Total Creatine Kinase NT-Pro-B Natriuret Pep Albumin Bhirl-7-Bczxxahya Dpgpj-5-Fuabhwqhd Beta Globulins PEP Interpretation Cholesterol LDL Cholesterol Direct Urine Creatinine 03/30/16 03/30/16 03/30/16 12:11 12:11 16:39 WBC RBC Hgb Hct MCV MCH MCHC RDW Plt Count Lymph % (Auto) [place] % (Auto) Lymph # [place] # Baso # Seg Neutrophils % Seg Neuts % (Manual) Lymphocytes % (Manual) Seg Neutrophils # Seg Neutrophils # Man Lymphocytes # (Manual) Monocytes # (Manual) PT INR APTT Heparin Anti-Xa Level POC ABG pH 7.476 H POC ABG pCO2 29.0 L POC ABG pO2 Sodium Potassium Chloride Carbon Dioxide BUN Creatinine Glucose POC Glucose 142 H 59 L Calcium Phosphorus Lactate Dehydrogenase Total Creatine Kinase NT-Pro-B Natriuret Pep Albumin Niuzx-9-Hcpfiwlpy Anmcf-3-Fcaajzttj Beta Globulins PEP Interpretation Cholesterol LDL Cholesterol Direct Urine Creatinine 03/30/16 03/30/16 03/31/16 18:41 21:59 05:02 WBC RBC Hgb Hct MCV MCH MCHC RDW Plt Count Lymph % (Auto) [place] % (Auto) Lymph # [place] # Baso # Seg Neutrophils % Seg Neuts % (Manual) Lymphocytes % (Manual) Seg Neutrophils # Seg Neutrophils # Man Lymphocytes # (Manual) Monocytes # (Manual) PT INR APTT Heparin Anti-Xa Level POC ABG pH 7.519 H POC ABG pCO2 21.8 L POC ABG pO2 142 H Sodium Potassium Chloride Carbon Dioxide BUN Creatinine Glucose POC Glucose 145 H 154 H Calcium Phosphorus Lactate Dehydrogenase Total Creatine Kinase NT-Pro-B Natriuret Pep Albumin Zzzzk-4-Sqkdiptec Rnhol-1-Fetcralyk Beta Globulins PEP Interpretation Cholesterol LDL Cholesterol Direct Urine Creatinine 03/31/16 03/31/16 03/31/16 05:15 05:15 05:15 WBC 13.4 H RBC 5.21 H Hgb Hct MCV 81 L MCH 26 L MCHC RDW Plt Count Lymph % (Auto) 9.5 L [place] % (Auto) 14.0 H Lymph # [place] # 1.9 H Baso # Seg Neutrophils % 75.0 H Seg Neuts % (Manual) Lymphocytes % (Manual) Seg Neutrophils # 10.1 H Seg Neutrophils # Man Lymphocytes # (Manual) Monocytes # (Manual) PT INR APTT Heparin Anti-Xa Level POC ABG pH POC ABG pCO2 POC ABG pO2 Sodium Potassium Chloride 108.5 H Carbon Dioxide 19 L BUN Creatinine Glucose 188 H POC Glucose Calcium Phosphorus Lactate Dehydrogenase Total Creatine Kinase NT-Pro-B Natriuret Pep 1089 H Albumin Hxrft-2-Hmfxzqbqq Jfrjn-4-Ebibjjkrw Beta Globulins PEP Interpretation Cholesterol LDL Cholesterol Direct Urine Creatinine 03/31/16 03/31/16 03/31/16 07:23 11:12 15:20 WBC RBC Hgb Hct MCV MCH MCHC RDW Plt Count Lymph % (Auto) [place] % (Auto) Lymph # [place] # Baso # Seg Neutrophils % Seg Neuts % (Manual) Lymphocytes % (Manual) Seg Neutrophils # Seg Neutrophils # Man Lymphocytes # (Manual) Monocytes # (Manual) PT INR APTT Heparin Anti-Xa Level POC ABG pH POC ABG pCO2 POC ABG pO2 Sodium Potassium Chloride Carbon Dioxide BUN Creatinine Glucose POC Glucose 233 H 228 H 208 H Calcium Phosphorus Lactate Dehydrogenase Total Creatine Kinase NT-Pro-B Natriuret Pep Albumin Xrzzr-2-Aoembdvlc Klctk-6-Qkhoinmma Beta Globulins PEP Interpretation Cholesterol LDL Cholesterol Direct Urine Creatinine 03/31/16 04/01/16 04/01/16 21:27 04:41 05:35 WBC 12.1 H RBC Hgb Hct MCV 81 L MCH 26 L MCHC RDW Plt Count Lymph % (Auto) 8.5 L [place] % (Auto) 14.0 H Lymph # 1.0 L [place] # 1.7 H Baso # Seg Neutrophils % 76.2 H Seg Neuts % (Manual) Lymphocytes % (Manual) Seg Neutrophils # 9.2 H Seg Neutrophils # Man Lymphocytes # (Manual) Monocytes # (Manual) PT INR APTT Heparin Anti-Xa Level POC ABG pH 7.455 H POC ABG pCO2 31.0 L POC ABG pO2 Sodium Potassium Chloride Carbon Dioxide BUN Creatinine Glucose POC Glucose 162 H Calcium Phosphorus Lactate Dehydrogenase Total Creatine Kinase NT-Pro-B Natriuret Pep Albumin Srocz-2-Kzmsdkexy Axwup-6-Ybipoamwm Beta Globulins PEP Interpretation Cholesterol LDL Cholesterol Direct Urine Creatinine 04/01/16 04/01/16 04/01/16 05:35 08:44 12:49 WBC RBC Hgb Hct MCV MCH MCHC RDW Plt Count Lymph % (Auto) [place] % (Auto) Lymph # [place] # Baso # Seg Neutrophils % Seg Neuts % (Manual) Lymphocytes % (Manual) Seg Neutrophils # Seg Neutrophils # Man Lymphocytes # (Manual) Monocytes # (Manual) PT INR APTT Heparin Anti-Xa Level POC ABG pH POC ABG pCO2 POC ABG pO2 Sodium Potassium Chloride Carbon Dioxide BUN Creatinine Glucose 256 H POC Glucose 257 H 279 H Calcium 8.0 L Phosphorus Lactate Dehydrogenase Total Creatine Kinase NT-Pro-B Natriuret Pep 1205 H Albumin Dguqe-8-Gdpnphdgz Sjwpy-7-Bavjdtddk Beta Globulins PEP Interpretation Cholesterol LDL Cholesterol Direct Urine Creatinine 04/01/16 04/02/16 04/02/16 18:12 00:42 04:17 WBC RBC Hgb Hct MCV MCH MCHC RDW Plt Count Lymph % (Auto) [place] % (Auto) Lymph # [place] # Baso # Seg Neutrophils % Seg Neuts % (Manual) Lymphocytes % (Manual) Seg Neutrophils # Seg Neutrophils # Man Lymphocytes # (Manual) Monocytes # (Manual) PT INR APTT Heparin Anti-Xa Level POC ABG pH 7.582 H POC ABG pCO2 26.8 L POC ABG pO2 Sodium Potassium Chloride Carbon Dioxide BUN Creatinine Glucose POC Glucose 168 H 282 H Calcium Phosphorus Lactate Dehydrogenase Total Creatine Kinase NT-Pro-B Natriuret Pep Albumin Hytob-7-Sszigwjkf Rzmgh-0-Aszdqgfmz Beta Globulins PEP Interpretation Cholesterol LDL Cholesterol Direct Urine Creatinine 04/02/16 04/02/16 04/02/16 05:00 05:00 06:27 WBC 12.4 H RBC Hgb Hct MCV 81 L MCH 26 L MCHC RDW Plt Count Lymph % (Auto) 6.4 L [place] % (Auto) 13.3 H Lymph # 0.8 L [place] # 1.7 H Baso # Seg Neutrophils % 79.4 H Seg Neuts % (Manual) Lymphocytes % (Manual) Seg Neutrophils # 9.9 H Seg Neutrophils # Man Lymphocytes # (Manual) Monocytes # (Manual) PT INR APTT Heparin Anti-Xa Level POC ABG pH POC ABG pCO2 POC ABG pO2 Sodium 146 H Potassium Chloride Carbon Dioxide BUN Creatinine Glucose 334 H POC Glucose 317 H Calcium 8.0 L Phosphorus Lactate Dehydrogenase Total Creatine Kinase NT-Pro-B Natriuret Pep Albumin Rdjir-0-Sgvzaftiw Dzuza-4-Zxdxkwegz Beta Globulins PEP Interpretation Cholesterol LDL Cholesterol Direct Urine Creatinine 04/02/16 04/02/16 04/02/16 11:51 13:10 17:24 WBC RBC Hgb Hct MCV MCH MCHC RDW Plt Count Lymph % (Auto) [place] % (Auto) Lymph # [place] # Baso # Seg Neutrophils % Seg Neuts % (Manual) Lymphocytes % (Manual) Seg Neutrophils # Seg Neutrophils # Man Lymphocytes # (Manual) Monocytes # (Manual) PT INR APTT Heparin Anti-Xa Level POC ABG pH 7.518 H POC ABG pCO2 POC ABG pO2 Sodium Potassium Chloride Carbon Dioxide BUN Creatinine Glucose POC Glucose 278 H 195 H Calcium Phosphorus Lactate Dehydrogenase Total Creatine Kinase NT-Pro-B Natriuret Pep Albumin Xcnim-3-Cvrensztc Hoiaw-5-Ilirtncls Beta Globulins PEP Interpretation Cholesterol LDL Cholesterol Direct Urine Creatinine 04/03/16 04/03/16 04/03/16 00:18 04:10 04:10 WBC 14.3 H RBC Hgb Hct MCV 81 L MCH 26 L MCHC RDW Plt Count Lymph % (Auto) 9.0 L [place] % (Auto) 10.7 H Lymph # [place] # 1.5 H Baso # 0.2 H Seg Neutrophils % 78.5 H Seg Neuts % (Manual) Lymphocytes % (Manual) Seg Neutrophils # 11.3 H Seg Neutrophils # Man Lymphocytes # (Manual) Monocytes # (Manual) PT INR APTT Heparin Anti-Xa Level POC ABG pH POC ABG pCO2 POC ABG pO2 Sodium 148 H Potassium Chloride 108.1 H Carbon Dioxide BUN 21 H Creatinine Glucose 227 H POC Glucose 144 H Calcium 8.2 L Phosphorus Lactate Dehydrogenase Total Creatine Kinase NT-Pro-B Natriuret Pep Albumin Ysmox-1-Ttvmswgdb Kylmc-0-Hehntljob Beta Globulins PEP Interpretation Cholesterol LDL Cholesterol Direct Urine Creatinine 04/03/16 04/03/16 04/04/16 11:14 17:10 04:00 WBC 14.5 H RBC Hgb Hct MCV 81 L MCH 26 L MCHC RDW Plt Count Lymph % (Auto) 7.2 L [place] % (Auto) 7.6 H Lymph # 1.0 L [place] # 1.1 H Baso # Seg Neutrophils % 84.5 H Seg Neuts % (Manual) Lymphocytes % (Manual) Seg Neutrophils # 12.3 H Seg Neutrophils # Man Lymphocytes # (Manual) Monocytes # (Manual) PT INR APTT Heparin Anti-Xa Level POC ABG pH POC ABG pCO2 POC ABG pO2 Sodium Potassium Chloride Carbon Dioxide BUN Creatinine Glucose POC Glucose 267 H 212 H Calcium Phosphorus Lactate Dehydrogenase Total Creatine Kinase NT-Pro-B Natriuret Pep Albumin Hklwm-0-Ziuuuulmp Zupfn-9-Kdisxnian Beta Globulins PEP Interpretation Cholesterol LDL Cholesterol Direct Urine Creatinine 04/04/16 04/04/16 04/04/16 05:00 09:55 09:55 WBC RBC Hgb 11.5 L Hct MCV MCH MCHC RDW Plt Count Lymph % (Auto) [place] % (Auto) Lymph # [place] # Baso # Seg Neutrophils % Seg Neuts % (Manual) Lymphocytes % (Manual) Seg Neutrophils # Seg Neutrophils # Man Lymphocytes # (Manual) Monocytes # (Manual) PT INR APTT 42.1 H Heparin Anti-Xa Level POC ABG pH POC ABG pCO2 POC ABG pO2 Sodium 146 H Potassium Chloride Carbon Dioxide BUN 22 H Creatinine Glucose 128 H POC Glucose Calcium Phosphorus Lactate Dehydrogenase Total Creatine Kinase NT-Pro-B Natriuret Pep Albumin Aqmkr-6-Vaydxgtoc Dcflg-8-Qyeiqmddi Beta Globulins PEP Interpretation Cholesterol LDL Cholesterol Direct Urine Creatinine 04/04/16 04/04/16 04/04/16 11:45 17:49 17:55 WBC RBC Hgb Hct MCV MCH MCHC RDW Plt Count Lymph % (Auto) [place] % (Auto) Lymph # [place] # Baso # Seg Neutrophils % Seg Neuts % (Manual) Lymphocytes % (Manual) Seg Neutrophils # Seg Neutrophils # Man Lymphocytes # (Manual) Monocytes # (Manual) PT INR APTT Heparin Anti-Xa Level 1.19 H POC ABG pH POC ABG pCO2 POC ABG pO2 Sodium Potassium Chloride Carbon Dioxide BUN Creatinine Glucose POC Glucose 231 H 186 H Calcium Phosphorus Lactate Dehydrogenase Total Creatine Kinase NT-Pro-B Natriuret Pep Albumin Bzlbw-6-Mdyzstpnn Qrags-4-Dhicbfmvu Beta Globulins PEP Interpretation Cholesterol LDL Cholesterol Direct Urine Creatinine 04/05/16 04/05/16 04/05/16 00:35 05:32 05:42 WBC RBC Hgb Hct MCV MCH MCHC RDW Plt Count Lymph % (Auto) [place] % (Auto) Lymph # [place] # Baso # Seg Neutrophils % Seg Neuts % (Manual) Lymphocytes % (Manual) Seg Neutrophils # Seg Neutrophils # Man Lymphocytes # (Manual) Monocytes # (Manual) PT INR APTT Heparin Anti-Xa Level POC ABG pH 7.491 H POC ABG pCO2 POC ABG pO2 Sodium Potassium Chloride Carbon Dioxide BUN Creatinine Glucose POC Glucose 192 H 242 H Calcium Phosphorus Lactate Dehydrogenase Total Creatine Kinase NT-Pro-B Natriuret Pep Albumin Ufild-6-Afvddtaix Ikrsd-7-Butmxufdi Beta Globulins PEP Interpretation Cholesterol LDL Cholesterol Direct Urine Creatinine 04/05/16 04/05/16 04/05/16 06:20 06:20 12:19 WBC 13.9 H RBC Hgb 11.6 L Hct MCV 81 L MCH 26 L MCHC RDW Plt Count Lymph % (Auto) 9.6 L [place] % (Auto) 8.7 H Lymph # [place] # 1.2 H Baso # Seg Neutrophils % 80.9 H Seg Neuts % (Manual) Lymphocytes % (Manual) Seg Neutrophils # 11.3 H Seg Neutrophils # Man Lymphocytes # (Manual) Monocytes # (Manual) PT INR APTT Heparin Anti-Xa Level POC ABG pH POC ABG pCO2 POC ABG pO2 Sodium 148 H Potassium Chloride Carbon Dioxide BUN 23 H Creatinine Glucose 242 H POC Glucose 187 H Calcium Phosphorus Lactate Dehydrogenase Total Creatine Kinase NT-Pro-B Natriuret Pep Albumin Wmrjp-3-Icduqdtmu Mgqap-1-Utqkjgyvt Beta Globulins PEP Interpretation Cholesterol LDL Cholesterol Direct Urine Creatinine 04/05/16 04/05/16 04/06/16 17:10 23:45 05:23 WBC 13.0 H RBC Hgb Hct MCV 82 L MCH 26 L MCHC 31 L RDW Plt Count Lymph % (Auto) 6.7 L [place] % (Auto) 8.3 H Lymph # 0.9 L [place] # 1.1 H Baso # Seg Neutrophils % 84.6 H Seg Neuts % (Manual) Lymphocytes % (Manual) Seg Neutrophils # 11.0 H Seg Neutrophils # Man Lymphocytes # (Manual) Monocytes # (Manual) PT INR APTT Heparin Anti-Xa Level POC ABG pH POC ABG pCO2 POC ABG pO2 Sodium Potassium Chloride Carbon Dioxide BUN Creatinine Glucose POC Glucose 169 H 202 H Calcium Phosphorus Lactate Dehydrogenase Total Creatine Kinase NT-Pro-B Natriuret Pep Albumin Ewrup-7-Mmuuivatg Yrdbl-9-Uqpbrqmjl Beta Globulins PEP Interpretation Cholesterol LDL Cholesterol Direct Urine Creatinine 04/06/16 04/06/16 04/06/16 05:23 05:23 06:11 WBC RBC Hgb Hct MCV MCH MCHC RDW Plt Count Lymph % (Auto) [place] % (Auto) Lymph # [place] # Baso # Seg Neutrophils % Seg Neuts % (Manual) Lymphocytes % (Manual) Seg Neutrophils # Seg Neutrophils # Man Lymphocytes # (Manual) Monocytes # (Manual) PT INR APTT Heparin Anti-Xa Level 0.21 L POC ABG pH POC ABG pCO2 POC ABG pO2 Sodium 153 H Potassium Chloride 111.3 H Carbon Dioxide BUN 22 H Creatinine Glucose 62 L POC Glucose 56 L Calcium Phosphorus Lactate Dehydrogenase Total Creatine Kinase NT-Pro-B Natriuret Pep Albumin Qvmim-5-Dxcqapjns Zezbm-9-Ogcfetcpa Beta Globulins PEP Interpretation Cholesterol LDL Cholesterol Direct Urine Creatinine 04/06/16 04/06/16 04/06/16 06:52 11:36 14:58 WBC RBC Hgb Hct MCV MCH MCHC RDW Plt Count Lymph % (Auto) [place] % (Auto) Lymph # [place] # Baso # Seg Neutrophils % Seg Neuts % (Manual) Lymphocytes % (Manual) Seg Neutrophils # Seg Neutrophils # Man Lymphocytes # (Manual) Monocytes # (Manual) PT INR APTT Heparin Anti-Xa Level POC ABG pH POC ABG pCO2 POC ABG pO2 Sodium Potassium Chloride Carbon Dioxide BUN Creatinine Glucose POC Glucose 206 H 139 H 147 H Calcium Phosphorus Lactate Dehydrogenase Total Creatine Kinase NT-Pro-B Natriuret Pep Albumin Sxkfk-7-Cclznjkav Npdhp-9-Dtqgcjtzr Beta Globulins PEP Interpretation Cholesterol LDL Cholesterol Direct Urine Creatinine 04/06/16 04/06/16 04/06/16 16:03 21:18 23:53 WBC RBC Hgb Hct MCV MCH MCHC RDW Plt Count Lymph % (Auto) [place] % (Auto) Lymph # [place] # Baso # Seg Neutrophils % Seg Neuts % (Manual) Lymphocytes % (Manual) Seg Neutrophils # Seg Neutrophils # Man Lymphocytes # (Manual) Monocytes # (Manual) PT INR APTT Heparin Anti-Xa Level POC ABG pH POC ABG pCO2 POC ABG pO2 Sodium Potassium Chloride Carbon Dioxide BUN Creatinine Glucose POC Glucose 154 H 293 H 301 H Calcium Phosphorus Lactate Dehydrogenase Total Creatine Kinase NT-Pro-B Natriuret Pep Albumin Quegz-3-Kwskmztnr Orxpb-5-Tlbmugbdg Beta Globulins PEP Interpretation Cholesterol LDL Cholesterol Direct Urine Creatinine 04/07/16 04/07/16 04/07/16 02:30 05:11 05:11 WBC 12.5 H RBC Hgb 11.5 L Hct MCV 82 L MCH 26 L MCHC 31 L RDW Plt Count Lymph % (Auto) [place] % (Auto) Lymph # [place] # Baso # Seg Neutrophils % Seg Neuts % (Manual) Lymphocytes % (Manual) Seg Neutrophils # Seg Neutrophils # Man Lymphocytes # (Manual) Monocytes # (Manual) PT INR APTT Heparin Anti-Xa Level 0.11 L POC ABG pH POC ABG pCO2 POC ABG pO2 Sodium 150 H Potassium Chloride 109.5 H Carbon Dioxide BUN 28 H Creatinine Glucose 264 H POC Glucose Calcium Phosphorus Lactate Dehydrogenase Total Creatine Kinase NT-Pro-B Natriuret Pep Albumin Ecsqf-5-Ouqnjzrmy Afhay-4-Uzobxjwjx Beta Globulins PEP Interpretation Cholesterol LDL Cholesterol Direct Urine Creatinine 04/07/16 04/07/16 04/07/16 06:46 10:18 11:50 WBC RBC Hgb Hct MCV MCH MCHC RDW Plt Count Lymph % (Auto) [place] % (Auto) Lymph # [place] # Baso # Seg Neutrophils % Seg Neuts % (Manual) Lymphocytes % (Manual) Seg Neutrophils # Seg Neutrophils # Man Lymphocytes # (Manual) Monocytes # (Manual) PT 15.1 H INR 1.20 H APTT Heparin Anti-Xa Level POC ABG pH POC ABG pCO2 POC ABG pO2 Sodium Potassium Chloride Carbon Dioxide BUN Creatinine Glucose POC Glucose 259 H 288 H Calcium Phosphorus Lactate Dehydrogenase Total Creatine Kinase NT-Pro-B Natriuret Pep Albumin Zcezv-6-Kaqfthydo Zyvdu-1-Mwttzmexf Beta Globulins PEP Interpretation Cholesterol LDL Cholesterol Direct Urine Creatinine 04/07/16 04/08/16 04/08/16 17:58 01:25 06:49 WBC RBC Hgb Hct MCV MCH MCHC RDW Plt Count Lymph % (Auto) [place] % (Auto) Lymph # [place] # Baso # Seg Neutrophils % Seg Neuts % (Manual) Lymphocytes % (Manual) Seg Neutrophils # Seg Neutrophils # Man Lymphocytes # (Manual) Monocytes # (Manual) PT INR APTT Heparin Anti-Xa Level POC ABG pH POC ABG pCO2 POC ABG pO2 Sodium 156 H Potassium Chloride 114.7 H Carbon Dioxide BUN 33 H Creatinine Glucose 169 H POC Glucose 330 H 146 H Calcium Phosphorus Lactate Dehydrogenase Total Creatine Kinase NT-Pro-B Natriuret Pep Albumin Rdugd-7-Ubcdovaci Vcvlj-6-Ficcyltqs Beta Globulins PEP Interpretation Cholesterol LDL Cholesterol Direct Urine Creatinine 04/08/16 04/08/16 04/08/16 07:34 10:28 10:28 WBC RBC Hgb Hct MCV MCH MCHC RDW Plt Count Lymph % (Auto) [place] % (Auto) Lymph # [place] # Baso # Seg Neutrophils % Seg Neuts % (Manual) Lymphocytes % (Manual) Seg Neutrophils # Seg Neutrophils # Man Lymphocytes # (Manual) Monocytes # (Manual) PT 15.5 H INR 1.24 H APTT Heparin Anti-Xa Level 0.24 L POC ABG pH POC ABG pCO2 POC ABG pO2 Sodium Potassium Chloride Carbon Dioxide BUN Creatinine Glucose POC Glucose 232 H Calcium Phosphorus Lactate Dehydrogenase Total Creatine Kinase NT-Pro-B Natriuret Pep Albumin Mqqgy-7-Krkuumdqz Ruiyq-4-Fysnjxgqs Beta Globulins PEP Interpretation Cholesterol LDL Cholesterol Direct Urine Creatinine 04/08/16 04/08/16 04/09/16 11:36 15:38 00:01 WBC RBC Hgb Hct MCV MCH MCHC RDW Plt Count Lymph % (Auto) [place] % (Auto) Lymph # [place] # Baso # Seg Neutrophils % Seg Neuts % (Manual) Lymphocytes % (Manual) Seg Neutrophils # Seg Neutrophils # Man Lymphocytes # (Manual) Monocytes # (Manual) PT INR APTT Heparin Anti-Xa Level POC ABG pH POC ABG pCO2 POC ABG pO2 Sodium Potassium Chloride Carbon Dioxide BUN Creatinine Glucose POC Glucose 193 H 163 H 180 H Calcium Phosphorus Lactate Dehydrogenase Total Creatine Kinase NT-Pro-B Natriuret Pep Albumin Rkxip-3-Xnfrbtfui Vktek-5-Sskjhcugz Beta Globulins PEP Interpretation Cholesterol LDL Cholesterol Direct Urine Creatinine 04/09/16 04/09/16 04/09/16 06:17 06:42 06:42 WBC RBC Hgb Hct MCV MCH MCHC RDW Plt Count Lymph % (Auto) [place] % (Auto) Lymph # [place] # Baso # Seg Neutrophils % Seg Neuts % (Manual) Lymphocytes % (Manual) Seg Neutrophils # Seg Neutrophils # Man Lymphocytes # (Manual) Monocytes # (Manual) PT 17.4 H INR 1.43 H APTT Heparin Anti-Xa Level POC ABG pH POC ABG pCO2 POC ABG pO2 Sodium 153 H Potassium Chloride 113.2 H Carbon Dioxide BUN 29 H Creatinine Glucose 301 H POC Glucose 249 H Calcium 8.3 L Phosphorus Lactate Dehydrogenase Total Creatine Kinase NT-Pro-B Natriuret Pep Albumin Rbjxj-3-Tfkgflxtj Dxdgt-7-Xkcmooeug Beta Globulins PEP Interpretation Cholesterol LDL Cholesterol Direct Urine Creatinine 04/09/16 04/09/16 04/09/16 07:37 11:26 15:45 WBC RBC Hgb Hct MCV MCH MCHC RDW Plt Count Lymph % (Auto) [place] % (Auto) Lymph # [place] # Baso # Seg Neutrophils % Seg Neuts % (Manual) Lymphocytes % (Manual) Seg Neutrophils # Seg Neutrophils # Man Lymphocytes # (Manual) Monocytes # (Manual) PT INR APTT Heparin Anti-Xa Level POC ABG pH POC ABG pCO2 POC ABG pO2 Sodium Potassium Chloride Carbon Dioxide BUN Creatinine Glucose POC Glucose 283 H 306 H 354 H Calcium Phosphorus Lactate Dehydrogenase Total Creatine Kinase NT-Pro-B Natriuret Pep Albumin Gkqtn-1-Iayzkhecm Mgmht-7-Cmpminpvb Beta Globulins PEP Interpretation Cholesterol LDL Cholesterol Direct Urine Creatinine 04/10/16 04/10/16 04/10/16 00:53 07:15 07:34 WBC RBC Hgb 11.3 L Hct MCV MCH MCHC RDW Plt Count Lymph % (Auto) [place] % (Auto) Lymph # [place] # Baso # Seg Neutrophils % Seg Neuts % (Manual) Lymphocytes % (Manual) Seg Neutrophils # Seg Neutrophils # Man Lymphocytes # (Manual) Monocytes # (Manual) PT INR APTT Heparin Anti-Xa Level POC ABG pH POC ABG pCO2 POC ABG pO2 Sodium Potassium Chloride Carbon Dioxide BUN Creatinine Glucose POC Glucose 323 H 311 H Calcium Phosphorus Lactate Dehydrogenase Total Creatine Kinase NT-Pro-B Natriuret Pep Albumin Avsum-0-Hxcnfrmff Arpgg-8-Ifnzujmvk Beta Globulins PEP Interpretation Cholesterol LDL Cholesterol Direct Urine Creatinine 04/10/16 04/10/16 04/10/16 07:34 07:34 11:25 WBC RBC Hgb Hct MCV MCH MCHC RDW Plt Count Lymph % (Auto) [place] % (Auto) Lymph # [place] # Baso # Seg Neutrophils % Seg Neuts % (Manual) Lymphocytes % (Manual) Seg Neutrophils # Seg Neutrophils # Man Lymphocytes # (Manual) Monocytes # (Manual) PT 17.3 H INR 1.42 H APTT Heparin Anti-Xa Level POC ABG pH POC ABG pCO2 POC ABG pO2 Sodium 158 H Potassium Chloride 118.6 H Carbon Dioxide BUN 30 H Creatinine Glucose 330 H POC Glucose 335 H Calcium 8.3 L Phosphorus Lactate Dehydrogenase Total Creatine Kinase NT-Pro-B Natriuret Pep Albumin Zzlgo-1-Otcmkebhn Ndxey-8-Rvsqfotnz Beta Globulins PEP Interpretation Cholesterol LDL Cholesterol Direct Urine Creatinine 04/10/16 04/11/16 04/11/16 16:21 00:29 07:47 WBC RBC Hgb Hct MCV MCH MCHC RDW Plt Count Lymph % (Auto) [place] % (Auto) Lymph # [place] # Baso # Seg Neutrophils % Seg Neuts % (Manual) Lymphocytes % (Manual) Seg Neutrophils # Seg Neutrophils # Man Lymphocytes # (Manual) Monocytes # (Manual) PT 18.4 H INR 1.53 H APTT Heparin Anti-Xa Level POC ABG pH POC ABG pCO2 POC ABG pO2 Sodium Potassium Chloride Carbon Dioxide BUN Creatinine Glucose POC Glucose 230 H 162 H Calcium Phosphorus Lactate Dehydrogenase Total Creatine Kinase NT-Pro-B Natriuret Pep Albumin Dwsxf-1-Trowvbfss Aemqs-8-Mwfvplfjy Beta Globulins PEP Interpretation Cholesterol LDL Cholesterol Direct Urine Creatinine 04/11/16 04/11/16 04/12/16 07:47 11:22 04:54 WBC RBC Hgb 11.0 L Hct 35.0 L MCV MCH MCHC RDW Plt Count Lymph % (Auto) [place] % (Auto) Lymph # [place] # Baso # Seg Neutrophils % Seg Neuts % (Manual) Lymphocytes % (Manual) Seg Neutrophils # Seg Neutrophils # Man Lymphocytes # (Manual) Monocytes # (Manual) PT INR APTT Heparin Anti-Xa Level POC ABG pH POC ABG pCO2 POC ABG pO2 Sodium 155 H Potassium Chloride 114.5 H Carbon Dioxide BUN 23 H Creatinine Glucose 157 H POC Glucose 229 H Calcium Phosphorus Lactate Dehydrogenase Total Creatine Kinase NT-Pro-B Natriuret Pep Albumin Levff-2-Angzxazkk Oyvyd-9-Tneemyuqd Beta Globulins PEP Interpretation Cholesterol LDL Cholesterol Direct Urine Creatinine 04/12/16 04/12/16 04/12/16 04:54 04:54 05:57 WBC RBC Hgb Hct MCV MCH MCHC RDW Plt Count Lymph % (Auto) [place] % (Auto) Lymph # [place] # Baso # Seg Neutrophils % Seg Neuts % (Manual) Lymphocytes % (Manual) Seg Neutrophils # Seg Neutrophils # Man Lymphocytes # (Manual) Monocytes # (Manual) PT 22.5 H INR 1.98 H APTT Heparin Anti-Xa Level 0.19 L POC ABG pH POC ABG pCO2 POC ABG pO2 Sodium 156 H Potassium Chloride 115.4 H Carbon Dioxide BUN 23 H Creatinine Glucose 143 H POC Glucose 194 H Calcium Phosphorus Lactate Dehydrogenase Total Creatine Kinase NT-Pro-B Natriuret Pep Albumin Upexc-2-Gtmrncyxk Ikuxj-5-Zjcsghkkm Beta Globulins PEP Interpretation Cholesterol LDL Cholesterol Direct Urine Creatinine 04/12/16 04/12/16 04/12/16 12:34 19:01 23:30 WBC RBC Hgb Hct MCV MCH MCHC RDW Plt Count Lymph % (Auto) [place] % (Auto) Lymph # [place] # Baso # Seg Neutrophils % Seg Neuts % (Manual) Lymphocytes % (Manual) Seg Neutrophils # Seg Neutrophils # Man Lymphocytes # (Manual) Monocytes # (Manual) PT INR APTT Heparin Anti-Xa Level POC ABG pH POC ABG pCO2 POC ABG pO2 Sodium Potassium Chloride Carbon Dioxide BUN Creatinine Glucose POC Glucose 291 H 235 H 154 H Calcium Phosphorus Lactate Dehydrogenase Total Creatine Kinase NT-Pro-B Natriuret Pep Albumin Fvmmj-1-Ourngdjbx Ldhfv-7-Dtseonzfu Beta Globulins PEP Interpretation Cholesterol LDL Cholesterol Direct Urine Creatinine 04/13/16 04/13/16 04/13/16 05:16 05:16 05:28 WBC RBC Hgb Hct MCV MCH MCHC RDW Plt Count Lymph % (Auto) [place] % (Auto) Lymph # [place] # Baso # Seg Neutrophils % Seg Neuts % (Manual) Lymphocytes % (Manual) Seg Neutrophils # Seg Neutrophils # Man Lymphocytes # (Manual) Monocytes # (Manual) PT 27.0 H INR 2.49 H APTT Heparin Anti-Xa Level 0.20 L POC ABG pH POC ABG pCO2 POC ABG pO2 Sodium 150 H Potassium Chloride 110.5 H Carbon Dioxide BUN 21 H Creatinine Glucose 159 H POC Glucose 177 H Calcium Phosphorus Lactate Dehydrogenase Total Creatine Kinase NT-Pro-B Natriuret Pep Albumin Tvuvo-9-Nyhihhupi Stjgo-4-Rgmurcifd Beta Globulins PEP Interpretation Cholesterol LDL Cholesterol Direct Urine Creatinine 04/13/16 04/13/16 04/14/16 11:30 17:54 00:44 WBC RBC Hgb Hct MCV MCH MCHC RDW Plt Count Lymph % (Auto) [place] % (Auto) Lymph # [place] # Baso # Seg Neutrophils % Seg Neuts % (Manual) Lymphocytes % (Manual) Seg Neutrophils # Seg Neutrophils # Man Lymphocytes # (Manual) Monocytes # (Manual) PT INR APTT Heparin Anti-Xa Level POC ABG pH POC ABG pCO2 POC ABG pO2 Sodium Potassium Chloride Carbon Dioxide BUN Creatinine Glucose POC Glucose 181 H 251 H 237 H Calcium Phosphorus Lactate Dehydrogenase Total Creatine Kinase NT-Pro-B Natriuret Pep Albumin Ceypa-5-Jbtsxnesg Lmqic-2-Onrjnnznw Beta Globulins PEP Interpretation Cholesterol LDL Cholesterol Direct Urine Creatinine 04/14/16 04/14/16 04/14/16 05:00 05:42 05:42 WBC RBC Hgb Hct MCV MCH MCHC RDW Plt Count Lymph % (Auto) [place] % (Auto) Lymph # [place] # Baso # Seg Neutrophils % Seg Neuts % (Manual) Lymphocytes % (Manual) Seg Neutrophils # Seg Neutrophils # Man Lymphocytes # (Manual) Monocytes # (Manual) PT 30.3 H INR 2.88 H APTT Heparin Anti-Xa Level 0.27 L POC ABG pH POC ABG pCO2 POC ABG pO2 Sodium Potassium 3.5 L Chloride Carbon Dioxide BUN Creatinine Glucose 160 H POC Glucose Calcium 8.2 L Phosphorus Lactate Dehydrogenase Total Creatine Kinase NT-Pro-B Natriuret Pep Albumin Jrntp-4-Kjkdqmkal Cqzoa-9-Mmjlzxfnx Beta Globulins PEP Interpretation Cholesterol LDL Cholesterol Direct Urine Creatinine 04/14/16 04/14/16 04/14/16 06:02 06:16 09:18 WBC 12.3 H RBC Hgb 11.4 L Hct MCV 82 L MCH 26 L MCHC RDW Plt Count Lymph % (Auto) [place] % (Auto) Lymph # [place] # Baso # Seg Neutrophils % Seg Neuts % (Manual) Lymphocytes % (Manual) Seg Neutrophils # Seg Neutrophils # Man Lymphocytes # (Manual) Monocytes # (Manual) PT INR APTT Heparin Anti-Xa Level POC ABG pH POC ABG pCO2 POC ABG pO2 Sodium Potassium Chloride Carbon Dioxide BUN Creatinine Glucose POC Glucose 156 H 164 H Calcium Phosphorus Lactate Dehydrogenase Total Creatine Kinase NT-Pro-B Natriuret Pep Albumin Wuy[place]-4-Gvzmxwbiu [place]ai-5-[place] Beta Globulins PEP Interpretation Cholesterol LDL Cholesterol Direct Urine Creatinine 04/14/16 04/15/16 04/15/16 13:58 01:07 06:04 WBC RBC Hgb Hct MCV MCH MCHC RDW Plt Count Lymph % (Auto) [place] % (Auto) Lymph # [place] # Baso # Seg Neutrophils % Seg Neuts % (Manual) Lymphocytes % (Manual) Seg Neutrophils # Seg Neutrophils # Man Lymphocytes # (Manual) Monocytes # (Manual) PT 24.9 H INR 2.25 H APTT Heparin Anti-Xa Level POC ABG pH POC ABG pCO2 POC ABG pO2 Sodium Potassium Chloride Carbon Dioxide BUN Creatinine Glucose POC Glucose 109 H 154 H Calcium Phosphorus Lactate Dehydrogenase Total Creatine Kinase NT-Pro-B Natriuret Pep Albumin Tldfa-7-[place] Illqd-5-Mcfmjjjfs Beta Globulins PEP Interpretation Cholesterol LDL Cholesterol Direct Urine Creatinine 04/15/16 04/15/16 04/16/16 06:08 12:41 00:38 WBC RBC Hgb Hct MCV MCH MCHC RDW Plt Count Lymph % (Auto) [place] % (Auto) Lymph # [place] # Baso # Seg Neutrophils % Seg Neuts % (Manual) Lymphocytes % (Manual) Seg Neutrophils # Seg Neutrophils # Man Lymphocytes # (Manual) Monocytes # (Manual) PT INR APTT Heparin Anti-Xa Level POC ABG pH POC ABG pCO2 POC ABG pO2 Sodium Potassium Chloride Carbon Dioxide BUN Creatinine Glucose POC Glucose 165 H 223 H 216 H Calcium Phosphorus Lactate Dehydrogenase Total Creatine Kinase NT-Pro-B Natriuret Pep Albumin Facvs-1-Mwwxxqnni Rsgxk-9-Rzpwmxhfo Beta Globulins PEP Interpretation Cholesterol LDL Cholesterol Direct Urine Creatinine 04/16/16 04/16/16 04/16/16 05:45 07:09 14:00 WBC RBC Hgb Hct MCV MCH MCHC RDW Plt Count Lymph % (Auto) [place] % (Auto) Lymph # [place] # Baso # Seg Neutrophils % Seg Neuts % (Manual) Lymphocytes % (Manual) Seg Neutrophils # Seg Neutrophils # Man Lymphocytes # (Manual) Monocytes # (Manual) PT 19.4 H INR 1.64 H APTT Heparin Anti-Xa Level 0.10 L POC ABG pH POC ABG pCO2 POC ABG pO2 Sodium Potassium Chloride Carbon Dioxide BUN Creatinine Glucose POC Glucose 207 H 69 L Calcium Phosphorus Lactate Dehydrogenase Total Creatine Kinase NT-Pro-B Natriuret Pep Albumin Aqfyc-7-Sairngzlo Kbhfv-0-Cphsnmdfd Beta Globulins PEP Interpretation Cholesterol LDL Cholesterol Direct Urine Creatinine 04/16/16 04/16/16 04/16/16 17:40 17:52 19:38 WBC RBC Hgb Hct MCV MCH MCHC RDW Plt Count Lymph % (Auto) [place] % (Auto) Lymph # [place] # Baso # Seg Neutrophils % Seg Neuts % (Manual) Lymphocytes % (Manual) Seg Neutrophils # Seg Neutrophils # Man Lymphocytes # (Manual) Monocytes # (Manual) PT INR APTT Heparin Anti-Xa Level 0.26 L POC ABG pH 7.543 H 7.488 H POC ABG pCO2 26.3 L 30.3 L POC ABG pO2 55 L 203 H Sodium Potassium Chloride Carbon Dioxide BUN Creatinine Glucose POC Glucose Calcium Phosphorus Lactate Dehydrogenase Total Creatine Kinase NT-Pro-B Natriuret Pep Albumin Kfegn-5-Bcgaoqmne Yjgaf-3-Rpibarbaz Beta Globulins PEP Interpretation Cholesterol LDL Cholesterol Direct Urine Creatinine 04/17/16 04/17/16 04/17/16 00:04 05:10 05:36 WBC RBC Hgb Hct MCV MCH MCHC RDW Plt Count Lymph % (Auto) [place] % (Auto) Lymph # [place] # Baso # Seg Neutrophils % Seg Neuts % (Manual) Lymphocytes % (Manual) Seg Neutrophils # Seg Neutrophils # Man Lymphocytes # (Manual) Monocytes # (Manual) PT INR APTT Heparin Anti-Xa Level POC ABG pH POC ABG pCO2 32.7 L POC ABG pO2 68 L Sodium Potassium Chloride Carbon Dioxide BUN Creatinine Glucose POC Glucose 113 H 161 H Calcium Phosphorus Lactate Dehydrogenase Total Creatine Kinase NT-Pro-B Natriuret Pep Albumin Abalv-6-Mqnsvaaga Scgcy-6-Pctghmvfg Beta Globulins PEP Interpretation Cholesterol LDL Cholesterol Direct Urine Creatinine 04/17/16 04/17/16 04/17/16 05:41 08:37 11:46 WBC RBC Hgb Hct MCV MCH MCHC RDW Plt Count Lymph % (Auto) [place] % (Auto) Lymph # [place] # Baso # Seg Neutrophils % Seg Neuts % (Manual) Lymphocytes % (Manual) Seg Neutrophils # Seg Neutrophils # Man Lymphocytes # (Manual) Monocytes # (Manual) PT 17.4 H INR 1.43 H APTT Heparin Anti-Xa Level POC ABG pH POC ABG pCO2 POC ABG pO2 Sodium Potassium Chloride Carbon Dioxide BUN Creatinine Glucose POC Glucose 154 H 138 H Calcium Phosphorus Lactate Dehydrogenase Total Creatine Kinase NT-Pro-B Natriuret Pep Albumin Giocn-8-Rzxpplxns Kthqb-7-Brotwwcoj Beta Globulins PEP Interpretation Cholesterol LDL Cholesterol Direct Urine Creatinine 04/17/16 04/17/16 04/17/16 12:17 12:17 21:20 WBC 16.5 H RBC 3.31 L Hgb 8.8 L Hct 26.9 L MCV 81 L MCH 27 L MCHC RDW 15.5 H Plt Count Lymph % (Auto) [place] % (Auto) Lymph # [place] # Baso # Seg Neutrophils % Seg Neuts % (Manual) Lymphocytes % (Manual) 3.0 L Seg Neutrophils # Seg Neutrophils # Man 10.1 H Lymphocytes # (Manual) 0.5 L Monocytes # (Manual) PT INR APTT Heparin Anti-Xa Level 0.14 L POC ABG pH POC ABG pCO2 POC ABG pO2 Sodium Potassium Chloride Carbon Dioxide 21 L BUN 38 H Creatinine 1.8 H D Glucose 131 H POC Glucose Calcium 7.6 L Phosphorus Lactate Dehydrogenase Total Creatine Kinase NT-Pro-B Natriuret Pep Albumin Wvwnz-7-Ofnwlxzlq Phkup-6-Nuwoxxqvu Beta Globulins PEP Interpretation Cholesterol LDL Cholesterol Direct Urine Creatinine 04/17/16 04/17/16 04/18/16 23:38 23:41 00:21 WBC RBC Hgb Hct MCV MCH MCHC RDW Plt Count Lymph % (Auto) [place] % (Auto) Lymph # [place] # Baso # Seg Neutrophils % Seg Neuts % (Manual) Lymphocytes % (Manual) Seg Neutrophils # Seg Neutrophils # Man Lymphocytes # (Manual) Monocytes # (Manual) PT INR APTT Heparin Anti-Xa Level POC ABG pH POC ABG pCO2 POC ABG pO2 Sodium Potassium Chloride Carbon Dioxide BUN Creatinine Glucose POC Glucose < 40 L < 40 L 223 H Calcium Phosphorus Lactate Dehydrogenase Total Creatine Kinase NT-Pro-B Natriuret Pep Albumin Pimmh-1-Bhmmrekrc Fovhy-5-Ewcqqnijq Beta Globulins PEP Interpretation Cholesterol LDL Cholesterol Direct Urine Creatinine 04/18/16 04/18/16 04/18/16 05:01 05:20 05:20 WBC 17.6 H RBC 3.44 L Hgb 9.1 L Hct 27.8 L MCV 81 L MCH 26 L MCHC RDW 15.5 H Plt Count Lymph % (Auto) 2.7 L [place] % (Auto) 8.3 H Lymph # 0.5 L [place] # 1.5 H Baso # Seg Neutrophils % 88.4 H Seg Neuts % (Manual) Lymphocytes % (Manual) Seg Neutrophils # 15.6 H Seg Neutrophils # Man Lymphocytes # (Manual) Monocytes # (Manual) PT 17.4 H INR 1.43 H APTT Heparin Anti-Xa Level POC ABG pH 7.528 H POC ABG pCO2 27.9 L POC ABG pO2 Sodium Potassium Chloride Carbon Dioxide BUN Creatinine Glucose POC Glucose Calcium Phosphorus Lactate Dehydrogenase Total Creatine Kinase NT-Pro-B Natriuret Pep Albumin Qkswt-0-Zlbilkatt Rqdqw-0-Hxekguvls Beta Globulins PEP Interpretation Cholesterol LDL Cholesterol Direct Urine Creatinine 04/18/16 04/18/16 04/18/16 05:20 05:31 06:50 WBC RBC Hgb Hct MCV MCH MCHC RDW Plt Count Lymph % (Auto) [place] % (Auto) Lymph # [place] # Baso # Seg Neutrophils % Seg Neuts % (Manual) Lymphocytes % (Manual) Seg Neutrophils # Seg Neutrophils # Man Lymphocytes # (Manual) Monocytes # (Manual) PT INR APTT Heparin Anti-Xa Level POC ABG pH POC ABG pCO2 POC ABG pO2 Sodium Potassium 3.4 L Chloride Carbon Dioxide 21 L BUN 22 H Creatinine Glucose POC Glucose 61 L 124 H Calcium 8.0 L Phosphorus Lactate Dehydrogenase Total Creatine Kinase NT-Pro-B Natriuret Pep Albumin Pfcin-3-Yumsrsguo Rvbwx-4-Bdvvtidxo Beta Globulins PEP Interpretation Cholesterol LDL Cholesterol Direct Urine Creatinine 04/18/16 04/18/16 04/19/16 17:42 22:40 00:31 WBC RBC Hgb Hct MCV MCH MCHC RDW Plt Count Lymph % (Auto) [place] % (Auto) Lymph # [place] # Baso # Seg Neutrophils % Seg Neuts % (Manual) Lymphocytes % (Manual) Seg Neutrophils # Seg Neutrophils # Man Lymphocytes # (Manual) Monocytes # (Manual) PT INR APTT Heparin Anti-Xa Level < 0.10 L POC ABG pH POC ABG pCO2 POC ABG pO2 Sodium Potassium Chloride Carbon Dioxide BUN Creatinine Glucose POC Glucose 159 H 134 H Calcium Phosphorus Lactate Dehydrogenase Total Creatine Kinase NT-Pro-B Natriuret Pep Albumin Waazy-4-Svdhacjqt Ziyjc-0-Ttvburuet Beta Globulins PEP Interpretation Cholesterol LDL Cholesterol Direct Urine Creatinine 04/19/16 04/19/16 04/19/16 04:18 04:18 04:25 WBC 19.0 H RBC 3.58 L Hgb 9.3 L Hct 28.8 L MCV 80 L MCH 26 L MCHC RDW 15.5 H Plt Count Lymph % (Auto) 2.8 L [place] % (Auto) 7.4 H Lymph # 0.5 L [place] # 1.4 H Baso # Seg Neutrophils % 89.4 H Seg Neuts % (Manual) Lymphocytes % (Manual) Seg Neutrophils # 17.0 H Seg Neutrophils # Man Lymphocytes # (Manual) Monocytes # (Manual) PT INR APTT Heparin Anti-Xa Level POC ABG pH 7.527 H POC ABG pCO2 27.1 L POC ABG pO2 Sodium Potassium Chloride Carbon Dioxide BUN 22 H Creatinine Glucose 215 H POC Glucose Calcium 8.0 L Phosphorus Lactate Dehydrogenase Total Creatine Kinase NT-Pro-B Natriuret Pep Albumin Qbrtw-9-Mmoexfovx Wgwtg-3-Bybnwwtgy Beta Globulins PEP Interpretation Cholesterol LDL Cholesterol Direct Urine Creatinine 04/19/16 04/19/16 04/19/16 05:45 08:10 14:08 WBC RBC Hgb Hct MCV MCH MCHC RDW Plt Count Lymph % (Auto) [place] % (Auto) Lymph # [place] # Baso # Seg Neutrophils % Seg Neuts % (Manual) Lymphocytes % (Manual) Seg Neutrophils # Seg Neutrophils # Man Lymphocytes # (Manual) Monocytes # (Manual) PT 22.1 H INR 1.93 H APTT Heparin Anti-Xa Level 0.17 L POC ABG pH POC ABG pCO2 POC ABG pO2 Sodium Potassium Chloride Carbon Dioxide BUN Creatinine Glucose POC Glucose 196 H 318 H Calcium Phosphorus Lactate Dehydrogenase Total Creatine Kinase NT-Pro-B Natriuret Pep Albumin Anrhd-1-Wiqsqfckf Yaulz-5-Iricmorqe Beta Globulins PEP Interpretation Cholesterol LDL Cholesterol Direct Urine Creatinine 04/19/16 04/20/16 04/20/16 17:27 03:55 03:55 WBC 18.5 H RBC 3.19 L Hgb 8.4 L Hct 25.7 L MCV 80 L MCH 26 L MCHC RDW 15.9 H Plt Count Lymph % (Auto) 4.3 L [place] % (Auto) 10.1 H Lymph # 0.8 L [place] # 1.9 H Baso # Seg Neutrophils % 85.2 H Seg Neuts % (Manual) Lymphocytes % (Manual) Seg Neutrophils # 15.8 H Seg Neutrophils # Man Lymphocytes # (Manual) Monocytes # (Manual) PT 22.0 H INR 1.92 H APTT Heparin Anti-Xa Level 0.14 L POC ABG pH POC ABG pCO2 POC ABG pO2 Sodium Potassium Chloride Carbon Dioxide BUN Creatinine Glucose POC Glucose 230 H Calcium Phosphorus Lactate Dehydrogenase Total Creatine Kinase NT-Pro-B Natriuret Pep Albumin Rqctu-6-Znhtshhxu Uxtth-5-Rmameukvs Beta Globulins PEP Interpretation Cholesterol LDL Cholesterol Direct Urine Creatinine 04/20/16 04/20/16 04/20/16 03:55 04:16 05:52 WBC RBC Hgb Hct MCV MCH MCHC RDW Plt Count Lymph % (Auto) [place] % (Auto) Lymph # [place] # Baso # Seg Neutrophils % Seg Neuts % (Manual) Lymphocytes % (Manual) Seg Neutrophils # Seg Neutrophils # Man Lymphocytes # (Manual) Monocytes # (Manual) PT INR APTT Heparin Anti-Xa Level POC ABG pH 7.474 H POC ABG pCO2 26.5 L POC ABG pO2 Sodium Potassium Chloride Carbon Dioxide 18 L BUN 38 H Creatinine 2.7 H D Glucose 159 H POC Glucose 214 H Calcium 8.0 L Phosphorus Lactate Dehydrogenase Total Creatine Kinase NT-Pro-B Natriuret Pep Albumin Ioqnq-4-Gflkdqjnm Uqrou-9-Qnvdlzjbz Beta Globulins PEP Interpretation Cholesterol LDL Cholesterol Direct Urine Creatinine 04/20/16 04/20/16 04/20/16 10:32 11:27 11:50 WBC RBC Hgb Hct MCV MCH MCHC RDW Plt Count Lymph % (Auto) [place] % (Auto) Lymph # [place] # Baso # Seg Neutrophils % Seg Neuts % (Manual) Lymphocytes % (Manual) Seg Neutrophils # Seg Neutrophils # Man Lymphocytes # (Manual) Monocytes # (Manual) PT INR APTT Heparin Anti-Xa Level POC ABG pH POC ABG pCO2 POC ABG pO2 Sodium Potassium Chloride Carbon Dioxide 20 L BUN 45 H Creatinine 3.0 H Glucose 215 H POC Glucose 248 H Calcium 8.0 L Phosphorus Lactate Dehydrogenase Total Creatine Kinase NT-Pro-B Natriuret Pep Albumin Abwco-3-Ahyuwkaxf Skobo-4-Qtvfuquls Beta Globulins PEP Interpretation Cholesterol LDL Cholesterol Direct Urine Creatinine 85.5 H 04/20/16 04/21/16 04/21/16 16:59 00:13 04:29 WBC RBC Hgb Hct MCV MCH MCHC RDW Plt Count Lymph % (Auto) [place] % (Auto) Lymph # [place] # Baso # Seg Neutrophils % Seg Neuts % (Manual) Lymphocytes % (Manual) Seg Neutrophils # Seg Neutrophils # Man Lymphocytes # (Manual) Monocytes # (Manual) PT 18.1 H INR 1.50 H APTT Heparin Anti-Xa Level 0.10 L POC ABG pH POC ABG pCO2 POC ABG pO2 Sodium Potassium Chloride Carbon Dioxide BUN Creatinine Glucose POC Glucose 312 H 287 H Calcium Phosphorus Lactate Dehydrogenase Total Creatine Kinase NT-Pro-B Natriuret Pep Albumin Fpknk-7-Mrswwjjhz Xbekp-9-Dbsmervbq Beta Globulins PEP Interpretation Cholesterol LDL Cholesterol Direct Urine Creatinine 04/21/16 04/21/16 04/21/16 04:29 04:29 04:55 WBC 15.4 H RBC 3.24 L Hgb 8.4 L Hct 25.6 L MCV 79 L MCH 26 L MCHC RDW 16.1 H Plt Count Lymph % (Auto) 6.8 L [place] % (Auto) 12.9 H Lymph # 1.0 L [place] # 2.0 H Baso # Seg Neutrophils % 79.8 H Seg Neuts % (Manual) Lymphocytes % (Manual) Seg Neutrophils # 12.3 H Seg Neutrophils # Man Lymphocytes # (Manual) Monocytes # (Manual) PT INR APTT Heparin Anti-Xa Level POC ABG pH 7.512 H POC ABG pCO2 25.4 L POC ABG pO2 Sodium 135 L Potassium Chloride Carbon Dioxide 18 L BUN 57 H Creatinine 3.9 H Glucose 202 H POC Glucose Calcium 8.0 L Phosphorus Lactate Dehydrogenase Total Creatine Kinase NT-Pro-B Natriuret Pep Albumin Lpaip-0-Mcxzpzhmt Wrvvz-7-Xhkevgciz Beta Globulins PEP Interpretation Cholesterol LDL Cholesterol Direct Urine Creatinine 04/21/16 04/21/16 04/21/16 05:20 12:08 12:16 WBC RBC Hgb Hct MCV MCH MCHC RDW Plt Count Lymph % (Auto) [place] % (Auto) Lymph # [place] # Baso # Seg Neutrophils % Seg Neuts % (Manual) Lymphocytes % (Manual) Seg Neutrophils # Seg Neutrophils # Man Lymphocytes # (Manual) Monocytes # (Manual) PT INR APTT Heparin Anti-Xa Level 0.16 L POC ABG pH POC ABG pCO2 POC ABG pO2 Sodium Potassium Chloride Carbon Dioxide BUN Creatinine Glucose POC Glucose 203 H 221 H Calcium Phosphorus Lactate Dehydrogenase Total Creatine Kinase NT-Pro-B Natriuret Pep Albumin Znubv-7-Neueakvfx Uyeth-3-Resijdzuj Beta Globulins PEP Interpretation Cholesterol LDL Cholesterol Direct Urine Creatinine 04/21/16 04/22/16 04/22/16 17:22 05:01 05:20 WBC RBC Hgb Hct MCV MCH MCHC RDW Plt Count Lymph % (Auto) [place] % (Auto) Lymph # [place] # Baso # Seg Neutrophils % Seg Neuts % (Manual) Lymphocytes % (Manual) Seg Neutrophils # Seg Neutrophils # Man Lymphocytes # (Manual) Monocytes # (Manual) PT 17.5 H INR 1.44 H APTT Heparin Anti-Xa Level POC ABG pH 7.460 H POC ABG pCO2 27.9 L POC ABG pO2 Sodium Potassium Chloride Carbon Dioxide BUN Creatinine Glucose POC Glucose 189 H Calcium Phosphorus Lactate Dehydrogenase Total Creatine Kinase NT-Pro-B Natriuret Pep Albumin Wtbcd-5-Zwgfyylcu Uuvkc-2-Bbnqzfjly Beta Globulins PEP Interpretation Cholesterol LDL Cholesterol Direct Urine Creatinine 04/22/16 04/22/16 04/22/16 05:43 06:40 08:08 WBC RBC Hgb Hct MCV MCH MCHC RDW Plt Count Lymph % (Auto) [place] % (Auto) Lymph # [place] # Baso # Seg Neutrophils % Seg Neuts % (Manual) Lymphocytes % (Manual) Seg Neutrophils # Seg Neutrophils # Man Lymphocytes # (Manual) Monocytes # (Manual) PT INR APTT Heparin Anti-Xa Level POC ABG pH POC ABG pCO2 POC ABG pO2 Sodium Potassium Chloride Carbon Dioxide BUN Creatinine Glucose POC Glucose 56 L 136 H 134 H Calcium Phosphorus Lactate Dehydrogenase Total Creatine Kinase NT-Pro-B Natriuret Pep Albumin Gfifb-2-Gotapqjwm Kwwcs-4-Bpsakbjve Beta Globulins PEP Interpretation Cholesterol LDL Cholesterol Direct Urine Creatinine 04/22/16 04/22/16 04/22/16 11:18 12:10 18:17 WBC RBC Hgb Hct MCV MCH MCHC RDW Plt Count Lymph % (Auto) [place] % (Auto) Lymph # [place] # Baso # Seg Neutrophils % Seg Neuts % (Manual) Lymphocytes % (Manual) Seg Neutrophils # Seg Neutrophils # Man Lymphocytes # (Manual) Monocytes # (Manual) PT INR APTT Heparin Anti-Xa Level 0.12 L POC ABG pH POC ABG pCO2 POC ABG pO2 Sodium Potassium Chloride Carbon Dioxide BUN Creatinine Glucose POC Glucose 142 H 227 H Calcium Phosphorus Lactate Dehydrogenase Total Creatine Kinase NT-Pro-B Natriuret Pep Albumin Kwsom-9-Mampimobs Srswh-4-Ftkdnhwlt Beta Globulins PEP Interpretation Cholesterol LDL Cholesterol Direct Urine Creatinine 04/22/16 04/22/16 04/23/16 22:28 23:47 04:49 WBC RBC Hgb Hct MCV MCH MCHC RDW Plt Count Lymph % (Auto) [place] % (Auto) Lymph # [place] # Baso # Seg Neutrophils % Seg Neuts % (Manual) Lymphocytes % (Manual) Seg Neutrophils # Seg Neutrophils # Man Lymphocytes # (Manual) Monocytes # (Manual) PT INR APTT Heparin Anti-Xa Level 0.16 L POC ABG pH POC ABG pCO2 32.6 L POC ABG pO2 122 H Sodium Potassium Chloride Carbon Dioxide BUN Creatinine Glucose POC Glucose 266 H Calcium Phosphorus Lactate Dehydrogenase Total Creatine Kinase NT-Pro-B Natriuret Pep Albumin Uovqq-8-Gfvxaveva Adefk-2-Elclsmuzo Beta Globulins PEP Interpretation Cholesterol LDL Cholesterol Direct Urine Creatinine 04/23/16 04/23/16 04/23/16 05:41 08:05 08:34 WBC RBC Hgb Hct MCV MCH MCHC RDW Plt Count Lymph % (Auto) [place] % (Auto) Lymph # [place] # Baso # Seg Neutrophils % Seg Neuts % (Manual) Lymphocytes % (Manual) Seg Neutrophils # Seg Neutrophils # Man Lymphocytes # (Manual) Monocytes # (Manual) PT INR APTT Heparin Anti-Xa Level POC ABG pH POC ABG pCO2 POC ABG pO2 Sodium Potassium Chloride 109.5 H Carbon Dioxide 21 L BUN 23 H Creatinine Glucose 227 H POC Glucose 227 H 224 H Calcium 8.2 L Phosphorus Lactate Dehydrogenase Total Creatine Kinase NT-Pro-B Natriuret Pep Albumin Mmrjn-9-Zyzvglfna Lqjox-9-Udfrptqmc Beta Globulins PEP Interpretation Cholesterol LDL Cholesterol Direct Urine Creatinine 04/23/16 04/23/16 04/23/16 10:45 11:37 22:49 WBC RBC Hgb Hct MCV MCH MCHC RDW Plt Count Lymph % (Auto) [place] % (Auto) Lymph # [place] # Baso # Seg Neutrophils % Seg Neuts % (Manual) Lymphocytes % (Manual) Seg Neutrophils # Seg Neutrophils # Man Lymphocytes # (Manual) Monocytes # (Manual) PT 15.9 H INR 1.28 H APTT Heparin Anti-Xa Level 0.12 L POC ABG pH POC ABG pCO2 POC ABG pO2 Sodium Potassium Chloride Carbon Dioxide BUN Creatinine Glucose POC Glucose 256 H Calcium Phosphorus Lactate Dehydrogenase Total Creatine Kinase NT-Pro-B Natriuret Pep Albumin Yblvp-1-Qyiobwspa Xpysw-6-Anvsjxvkr Beta Globulins PEP Interpretation Cholesterol LDL Cholesterol Direct Urine Creatinine 04/23/16 04/24/16 04/24/16 23:59 05:29 06:03 WBC RBC Hgb Hct MCV MCH MCHC RDW Plt Count Lymph % (Auto) [place] % (Auto) Lymph # [place] # Baso # Seg Neutrophils % Seg Neuts % (Manual) Lymphocytes % (Manual) Seg Neutrophils # Seg Neutrophils # Man Lymphocytes # (Manual) Monocytes # (Manual) PT INR APTT Heparin Anti-Xa Level POC ABG pH 7.464 H POC ABG pCO2 32.4 L POC ABG pO2 115 H Sodium Potassium Chloride Carbon Dioxide BUN Creatinine Glucose POC Glucose 176 H 256 H Calcium Phosphorus Lactate Dehydrogenase Total Creatine Kinase NT-Pro-B Natriuret Pep Albumin Smttu-9-Wbbpfwbfx Wpzzh-8-Mkocrsqog Beta Globulins PEP Interpretation Cholesterol LDL Cholesterol Direct Urine Creatinine 04/24/16 04/24/16 04/24/16 07:59 12:10 17:17 WBC RBC Hgb Hct MCV MCH MCHC RDW Plt Count Lymph % (Auto) [place] % (Auto) Lymph # [place] # Baso # Seg Neutrophils % Seg Neuts % (Manual) Lymphocytes % (Manual) Seg Neutrophils # Seg Neutrophils # Man Lymphocytes # (Manual) Monocytes # (Manual) PT INR APTT Heparin Anti-Xa Level 0.18 L POC ABG pH POC ABG pCO2 POC ABG pO2 Sodium Potassium Chloride Carbon Dioxide BUN Creatinine Glucose POC Glucose 304 H 325 H Calcium Phosphorus Lactate Dehydrogenase Total Creatine Kinase NT-Pro-B Natriuret Pep Albumin Ryywo-2-Afdesdmwg Brqlz-6-Cyawftzms Beta Globulins PEP Interpretation Cholesterol LDL Cholesterol Direct Urine Creatinine 04/25/16 04/25/16 04/25/16 00:52 06:40 06:44 WBC RBC Hgb Hct MCV MCH MCHC RDW Plt Count Lymph % (Auto) [place] % (Auto) Lymph # [place] # Baso # Seg Neutrophils % Seg Neuts % (Manual) Lymphocytes % (Manual) Seg Neutrophils # Seg Neutrophils # Man Lymphocytes # (Manual) Monocytes # (Manual) PT INR APTT Heparin Anti-Xa Level 0.11 L POC ABG pH POC ABG pCO2 POC ABG pO2 Sodium Potassium Chloride Carbon Dioxide BUN Creatinine Glucose POC Glucose 212 H 184 H Calcium Phosphorus Lactate Dehydrogenase Total Creatine Kinase NT-Pro-B Natriuret Pep Albumin Lzvaj-1-Tidugpslp Zlbvo-9-Dpjwhjbel Beta Globulins PEP Interpretation Cholesterol LDL Cholesterol Direct Urine Creatinine 04/25/16 04/25/16 11:40 13:26 WBC RBC Hgb Hct MCV MCH MCHC RDW Plt Count Lymph % (Auto) [place] % (Auto) Lymph # [place] # Baso # Seg Neutrophils % Seg Neuts % (Manual) Lymphocytes % (Manual) Seg Neutrophils # Seg Neutrophils # Man Lymphocytes # (Manual) Monocytes # (Manual) PT INR APTT Heparin Anti-Xa Level 0.21 L POC ABG pH POC ABG pCO2 POC ABG pO2 Sodium Potassium Chloride Carbon Dioxide BUN Creatinine Glucose POC Glucose 206 H Calcium Phosphorus Lactate Dehydrogenase Total Creatine Kinase NT-Pro-B Natriuret Pep Albumin Untor-9-Xusalztvm Wknbq-0-Thgaqhkyd Beta Globulins PEP Interpretation Cholesterol LDL Cholesterol Direct Urine Creatinine
[2016-04-25] MEDS: TYLENOL PO PRN (21:46)
[2016-04-26] MEDS: NOVOLOG SUB-Q SCH ×5 (00:01→18:28)
[2016-04-26] MEDS: DUONEB 0.5 MG-3 MG/3 ML SOLN IH SCH ×4 (01:13→19:54)
[2016-04-26] MEDS: NORMODYNE PO SCH ×3 (08:08→20:30)
[2016-04-26] MEDS: LEVEMIR SUB-Q SCH (09:37)
[2016-04-26] MEDS: BABY ASPIRIN PO SCH (09:38)
[2016-04-26] MEDS: NORVASC PO SCH (09:38)
[2016-04-26] MEDS: ZESTRIL PO SCH ×2 (09:38→21:31)
[2016-04-26] MEDS: KEPPRA PO SCH ×2 (09:39→21:31)
[2016-04-26] MEDS: CORDARONE PO SCH (09:39)
[2016-04-26] MEDS: PEPCID PO SCH ×2 (09:39→21:31)
--- NOTE | 2016-04-26 12:04 | Progress Note ---
Assessment and Plan 1. Acute respiratory failure. still vent supported. Unresponsive. Image Archivist following. Contemplating tracheostomy. 2. Subacute cerebellar infarction: Continue with aspirin, 3. Encephalopathy: Metabolic 4. Systolic heart failure: Gentle diuresis. Bean, beta em. 5. History of aortic dissection status post repair 6. Diabetes mellitus: Continue sliding scale insulin Critical care time:31 minutes - Patient Problems (1) Acute respiratory failure Diagnosis Date: 04/26/16 Current Visit: Yes Status: Acute (2) Acute renal failure Diagnosis Date: 04/26/16 Current Visit: Yes Status: Acute (3) CAD (coronary artery disease) Diagnosis Date: 04/26/16 Current Visit: Yes Status: Acute (4) CHF (congestive heart failure), NYHA class II Diagnosis Date: 04/26/16 Current Visit: Yes Status: Acute (5) CVA (cerebral vascular accident) Diagnosis Date: 04/26/16 Current Visit: Yes Status: Acute Subjective Date of service: 04/26/16 Principal diagnosis: CVA, acute respiratory failure Interval history: Remains intubated and vent supported. Consulted with patient nurses. No overnight events. Still unresponsive Objective - Constitutional Vitals: Vital Signs - 12hr 04/26/16 04/26/16 04/26/16 00:00 00:30 01:00 Temperature 98.6 F Pulse Rate 74 71 73 Pulse Rate [ Anterior Bilateral Throughout] Pulse Rate [ Apical] Pulse Rate [ 74 From Monitor] Respiratory 15 18 20 Rate Respiratory Rate [Anterior Bilateral Throughout] Blood Pressure 110/62 120/66 125/68 O2 Sat by Pulse 99 100 100 Oximetry 04/26/16 04/26/16 04/26/16 01:13 01:30 01:47 Temperature Pulse Rate 73 71 Pulse Rate [ 70 Anterior Bilateral Throughout] Pulse Rate [ Apical] Pulse Rate [ From Monitor] Respiratory 13 Rate Respiratory 18 Rate [Anterior Bilateral Throughout] Blood Pressure 116/65 O2 Sat by Pulse 100 Oximetry 04/26/16 04/26/16 04/26/16 01:57 02:00 02:30 Temperature Pulse Rate 71 53 L 67 Pulse Rate [ Anterior Bilateral Throughout] Pulse Rate [ Apical] Pulse Rate [ From Monitor] Respiratory 22 23 18 Rate Respiratory Rate [Anterior Bilateral Throughout] Blood Pressure 116/65 117/63 116/61 O2 Sat by Pulse 99 99 99 Oximetry 04/26/16 04/26/16 04/26/16 02:51 03:00 03:17 Temperature Pulse Rate 66 67 67 Pulse Rate [ Anterior Bilateral Throughout] Pulse Rate [ Apical] Pulse Rate [ From Monitor] Respiratory 18 18 19 Rate Respiratory Rate [Anterior Bilateral Throughout] Blood Pressure 117/63 117/64 117/64 O2 Sat by Pulse 99 99 100 Oximetry 04/26/16 04/26/16 04/26/16 03:30 04:00 04:15 Temperature 98.9 F Pulse Rate 67 72 67 Pulse Rate [ Anterior Bilateral Throughout] Pulse Rate [ Apical] Pulse Rate [ 72 From Monitor] Respiratory 17 18 20 Rate Respiratory Rate [Anterior Bilateral Throughout] Blood Pressure 127/66 138/73 138/73 O2 Sat by Pulse 99 100 100 Oximetry 04/26/16 04/26/16 04/26/16 04:30 04:45 05:00 Temperature Pulse Rate 67 72 74 Pulse Rate [ Anterior Bilateral Throughout] Pulse Rate [ Apical] Pulse Rate [ From Monitor] Respiratory 18 21 Rate Respiratory Rate [Anterior Bilateral Throughout] Blood Pressure 130/67 142/74 143/71 O2 Sat by Pulse 100 100 100 Oximetry 04/26/16 04/26/16 04/26/16 05:30 06:00 06:30 Temperature Pulse Rate 75 71 66 Pulse Rate [ Anterior Bilateral Throughout] Pulse Rate [ Apical] Pulse Rate [ From Monitor] Respiratory 18 17 17 Rate Respiratory Rate [Anterior Bilateral Throughout] Blood Pressure 142/74 135/70 126/64 O2 Sat by Pulse 100 99 100 Oximetry 04/26/16 04/26/16 04/26/16 07:00 07:30 07:35 Temperature Pulse Rate 72 76 75 Pulse Rate [ Anterior Bilateral Throughout] Pulse Rate [ Apical] Pulse Rate [ From Monitor] Respiratory 19 18 20 Rate Respiratory Rate [Anterior Bilateral Throughout] Blood Pressure 137/71 125/77 125/77 O2 Sat by Pulse 100 100 100 Oximetry 04/26/16 04/26/16 04/26/16 07:59 08:00 08:01 Temperature 99.4 F Pulse Rate 73 75 78 Pulse Rate [ 72 Anterior Bilateral Throughout] Pulse Rate [ Apical] Pulse Rate [ From Monitor] Respiratory 16 23 Rate Respiratory 18 Rate [Anterior Bilateral Throughout] Blood Pressure 125/77 126/64 151/79 O2 Sat by Pulse 100 100 100 Oximetry 04/26/16 04/26/16 04/26/16 08:08 08:10 08:30 Temperature Pulse Rate 69 70 Pulse Rate [ 72 Anterior Bilateral Throughout] Pulse Rate [ 74 Apical] Pulse Rate [ 74 From Monitor] Respiratory 20 19 Rate Respiratory 18 Rate [Anterior Bilateral Throughout] Blood Pressure 151/79 131/71 O2 Sat by Pulse 100 100 Oximetry 04/26/16 04/26/16 04/26/16 09:00 09:30 09:38 Temperature Pulse Rate 68 74 65 Pulse Rate [ Anterior Bilateral Throughout] Pulse Rate [ Apical] Pulse Rate [ From Monitor] Respiratory 16 19 Rate Respiratory Rate [Anterior Bilateral Throughout] Blood Pressure 118/69 133/73 133/73 O2 Sat by Pulse 99 100 Oximetry 04/26/16 04/26/16 04/26/16 10:00 10:30 10:51 Temperature Pulse Rate 65 70 71 Pulse Rate [ Anterior Bilateral Throughout] Pulse Rate [ Apical] Pulse Rate [ From Monitor] Respiratory 15 15 17 Rate Respiratory Rate [Anterior Bilateral Throughout] Blood Pressure 133/73 123/70 123/70 O2 Sat by Pulse 99 100 99 Oximetry 04/26/16 04/26/16 11:00 11:37 Temperature Pulse Rate 69 69 Pulse Rate [ Anterior Bilateral Throughout] Pulse Rate [ Apical] Pulse Rate [ From Monitor] Respiratory 16 Rate Respiratory Rate [Anterior Bilateral Throughout] Blood Pressure 124/69 O2 Sat by Pulse 100 Oximetry General appearance: Present: no acute distress, other (intubated) - EENT Eyes: EOM intact - Neck Neck: supple - Respiratory Respiratory: bilateral: diminished - Cardiovascular Rhythm: regular Heart Sounds: Present: S1 & S2 Extremities: no ischemia, No edema - Gastrointestinal General gastrointestinal: Present: soft, non-tender, non-distended - Integumentary Integumentary: clear, warm, dry - Musculoskeletal Musculoskeletal: other (unresponsive) - Neurologic Neurologic: other (unresponsive) - Psychiatric Psychiatric: other (unresponsive) - Labs CBC & Chem 7: 04/21/16 04:29 04/23/16 08:34 Labs: Abnormal lab results 04/25/16 04/25/16 04/25/16 Range/Units 13:26 17:27 23:46 Heparin Anti-Xa Level 0.21 L (0.3-0.7) U.I./ml POC Glucose 204 H 162 H (70-105) 04/26/16 Range/Units 06:31 Heparin Anti-Xa Level (0.3-0.7) U.I./ml POC Glucose 148 H (70-105)
[2016-04-26] MEDS: HEPARIN/ 0.45% NACL-25,000 UNIT/500 ML 500 ML IV SCH (12:31)
[2016-04-26 12:33] LABS: ISTAT Base Excess 6; ISTAT HCO3 28.9; ISTAT PCO2 35.9 (35-45); ISTAT PH 7.513 (7.35-7.45); ISTAT PO2 76 (80-105); ISTAT SO2 96; ISTAT TCO2 30
--- NOTE | 2016-04-26 17:15 | Progress Note ---
Assessment and Plan Acute respiratory failure. Currently on ventilator support, pending tracheostomy. No fever. Stroke.See MRI. AMS. No change at this point HTN Elevated INR. The patient to get vitamin K yesterday in order to proceed with tracheotomy. This scheduled for next week according to Dr. Andrade note. Recommendations Vitamin K therapy. Monitor respiratory status. Continue with ventilatory support while awaiting tracheostomy. tracheotomy for tomorrow Reassess for SVT, weaning status after tracheotomy completed Total critical care time 31 minutes. Subjective Date of service: 04/26/16 Principal diagnosis: CVA, acute respiratory failure Interval history: Patient remain relatively unresponsive, orally intubated. No change in his condition. Patient on mechanical ventilator Objective Vital Signs - 12hr 04/26/16 04/26/16 04/26/16 05:30 06:00 06:30 Temperature Pulse Rate 75 71 66 Pulse Rate [ Anterior Bilateral Throughout] Pulse Rate [ Apical] Pulse Rate [ From Monitor] Respiratory 18 17 17 Rate Respiratory Rate [Anterior Bilateral Throughout] Blood Pressure 142/74 135/70 126/64 O2 Sat by Pulse 100 99 100 Oximetry 04/26/16 04/26/16 04/26/16 07:00 07:30 07:35 Temperature Pulse Rate 72 76 75 Pulse Rate [ Anterior Bilateral Throughout] Pulse Rate [ Apical] Pulse Rate [ From Monitor] Respiratory 19 18 20 Rate Respiratory Rate [Anterior Bilateral Throughout] Blood Pressure 137/71 125/77 125/77 O2 Sat by Pulse 100 100 100 Oximetry 04/26/16 04/26/16 04/26/16 07:59 08:00 08:01 Temperature 99.4 F Pulse Rate 73 75 78 Pulse Rate [ 72 Anterior Bilateral Throughout] Pulse Rate [ Apical] Pulse Rate [ From Monitor] Respiratory 16 23 Rate Respiratory 18 Rate [Anterior Bilateral Throughout] Blood Pressure 125/77 126/64 151/79 O2 Sat by Pulse 100 100 100 Oximetry 04/26/16 04/26/16 04/26/16 08:08 08:10 08:30 Temperature Pulse Rate 69 70 Pulse Rate [ 72 Anterior Bilateral Throughout] Pulse Rate [ 74 Apical] Pulse Rate [ 74 From Monitor] Respiratory 20 19 Rate Respiratory 18 Rate [Anterior Bilateral Throughout] Blood Pressure 151/79 131/71 O2 Sat by Pulse 100 100 Oximetry 04/26/16 04/26/16 04/26/16 09:00 09:30 09:38 Temperature Pulse Rate 68 74 65 Pulse Rate [ Anterior Bilateral Throughout] Pulse Rate [ Apical] Pulse Rate [ From Monitor] Respiratory 16 19 Rate Respiratory Rate [Anterior Bilateral Throughout] Blood Pressure 118/69 133/73 133/73 O2 Sat by Pulse 99 100 Oximetry 04/26/16 04/26/16 04/26/16 10:00 10:30 10:44 Temperature Pulse Rate 65 70 68 Pulse Rate [ Anterior Bilateral Throughout] Pulse Rate [ Apical] Pulse Rate [ From Monitor] Respiratory 15 15 14 Rate Respiratory Rate [Anterior Bilateral Throughout] Blood Pressure 133/73 123/70 123/70 O2 Sat by Pulse 99 100 100 Oximetry 04/26/16 04/26/16 04/26/16 10:51 11:00 11:03 Temperature Pulse Rate 71 69 69 Pulse Rate [ Anterior Bilateral Throughout] Pulse Rate [ Apical] Pulse Rate [ From Monitor] Respiratory 17 16 16 Rate Respiratory Rate [Anterior Bilateral Throughout] Blood Pressure 123/70 124/69 124/69 O2 Sat by Pulse 99 100 100 Oximetry 04/26/16 04/26/16 04/26/16 11:30 11:37 12:00 Temperature 99.1 F Pulse Rate 70 69 75 Pulse Rate [ Anterior Bilateral Throughout] Pulse Rate [ Apical] Pulse Rate [ From Monitor] Respiratory 14 15 Rate Respiratory Rate [Anterior Bilateral Throughout] Blood Pressure 118/67 136/76 O2 Sat by Pulse 99 25 L Oximetry 04/26/16 04/26/16 04/26/16 12:01 12:05 12:30 Temperature Pulse Rate 81 75 Pulse Rate [ Anterior Bilateral Throughout] Pulse Rate [ 81 Apical] Pulse Rate [ 81 From Monitor] Respiratory 28 H 28 H 17 Rate Respiratory Rate [Anterior Bilateral Throughout] Blood Pressure 136/76 111/63 O2 Sat by Pulse 100 100 100 Oximetry 04/26/16 04/26/16 04/26/16 12:48 12:49 13:00 Temperature Pulse Rate 76 80 79 Pulse Rate [ Anterior Bilateral Throughout] Pulse Rate [ Apical] Pulse Rate [ From Monitor] Respiratory 16 19 20 Rate Respiratory Rate [Anterior Bilateral Throughout] Blood Pressure 136/76 111/63 121/68 O2 Sat by Pulse 97 99 100 Oximetry 04/26/16 04/26/16 04/26/16 13:30 13:33 14:00 Temperature Pulse Rate 80 77 80 Pulse Rate [ Anterior Bilateral Throughout] Pulse Rate [ Apical] Pulse Rate [ From Monitor] Respiratory 18 13 20 Rate Respiratory Rate [Anterior Bilateral Throughout] Blood Pressure 127/72 127/72 126/72 O2 Sat by Pulse 100 99 98 Oximetry 04/26/16 04/26/16 04/26/16 14:06 14:09 14:30 Temperature Pulse Rate 80 80 72 Pulse Rate [ Anterior Bilateral Throughout] Pulse Rate [ Apical] Pulse Rate [ From Monitor] Respiratory 21 17 Rate Respiratory Rate [Anterior Bilateral Throughout] Blood Pressure 126/72 126/72 121/73 O2 Sat by Pulse 100 100 Oximetry 04/26/16 04/26/16 04/26/16 15:00 15:30 16:00 Temperature 98.6 F Pulse Rate 75 71 72 Pulse Rate [ Anterior Bilateral Throughout] Pulse Rate [ 72 Apical] Pulse Rate [ 72 From Monitor] Respiratory 10 L 12 17 Rate Respiratory Rate [Anterior Bilateral Throughout] Blood Pressure 128/70 122/70 124/71 O2 Sat by Pulse 100 100 99 Oximetry 04/26/16 04/26/16 04/26/16 16:20 16:30 16:31 Temperature Pulse Rate 76 Pulse Rate [ 102 H 102 H Anterior Bilateral Throughout] Pulse Rate [ Apical] Pulse Rate [ From Monitor] Respiratory 29 H Rate Respiratory 22 24 Rate [Anterior Bilateral Throughout] Blood Pressure 130/74 O2 Sat by Pulse 98 Oximetry 04/26/16 16:35 Temperature Pulse Rate 73 Pulse Rate [ Anterior Bilateral Throughout] Pulse Rate [ Apical] Pulse Rate [ From Monitor] Respiratory 19 Rate Respiratory Rate [Anterior Bilateral Throughout] Blood Pressure 130/74 O2 Sat by Pulse 100 Oximetry Constitutional: no acute distress, comatose Eyes: non-icteric ENT: other (orally intubated and sedated) Neck: supple Effort: normal Ascultation: Bilateral: clear, rhonchi (occasional) Percussion: Bilateral: not dull Cardiovascular: regular rate and rhythm, irregular rhythm Gastrointestinal: normoactive bowel sounds, soft, non-tender Extremities: no cyanosis, no edema Neurologic: other (GCS 4) CBC and BMP: 04/21/16 04:29 04/23/16 08:34 ABG, PT/INR, D-dimer: ABG POC ABG pH 7.513 (7.35-7.45) H 04/26/16 12:17 POC ABG pCO2 35.9 (35-45) 04/26/16 12:17 POC ABG pO2 76 (80-105) L 04/26/16 12:17 POC ABG HCO3 28.9 04/26/16 12:17 POC ABG Total CO2 30 04/26/16 12:17 POC ABG O2 Sat 96 04/26/16 12:17 PT/INR, D-dimer PT 15.9 Sec. (12.2-14.9) H 04/23/16 10:45 INR 1.28 (0.87-1.13) H 04/23/16 10:45 Abnormal lab findings: Abnormal Labs 03/24/16 03/24/16 03/24/16 17:58 20:25 23:23 WBC RBC Hgb Hct MCV MCH MCHC RDW Plt Count Lymph % (Auto) [place] % (Auto) Lymph # [place] # Baso # Seg Neutrophils % Seg Neuts % (Manual) Lymphocytes % (Manual) Seg Neutrophils # Seg Neutrophils # Man Lymphocytes # (Manual) Monocytes # (Manual) PT INR APTT Heparin Anti-Xa Level POC ABG pH POC ABG pCO2 POC ABG pO2 Sodium 169 H* Potassium 3.5 L Chloride 130.3 H Carbon Dioxide BUN 28 H Creatinine 1.8 H Glucose POC Glucose 112 H Calcium Phosphorus Lactate Dehydrogenase Total Creatine Kinase NT-Pro-B Natriuret Pep Albumin Ylmeg-9-Dtofcxhmm Cpari-7-Exsigucmh Beta Globulins PEP Interpretation Cholesterol 221 H LDL Cholesterol Direct 146 H Urine Creatinine 03/25/16 03/25/16 03/25/16 05:56 05:56 05:56 WBC 21.3 H RBC 6.32 H Hgb 16.7 H Hct 52.7 H MCV 83 L MCH 27 L MCHC RDW Plt Count Lymph % (Auto) [place] % (Auto) Lymph # [place] # Baso # Seg Neutrophils % Seg Neuts % (Manual) 91.0 H Lymphocytes % (Manual) 4.0 L Seg Neutrophils # Seg Neutrophils # Man 19.4 H Lymphocytes # (Manual) 0.9 L Monocytes # (Manual) 0.9 H PT INR APTT Heparin Anti-Xa Level POC ABG pH POC ABG pCO2 POC ABG pO2 Sodium 172 H* Potassium 3.5 L Chloride 130.4 H Carbon Dioxide BUN 29 H Creatinine 1.8 H Glucose 187 H POC Glucose Calcium Phosphorus Lactate Dehydrogenase 460 H Total Creatine Kinase NT-Pro-B Natriuret Pep Albumin Wlisk-1-Gjkrcbkyu Wgluy-8-Hlsbvxlfz Beta Globulins PEP Interpretation Cholesterol LDL Cholesterol Direct Urine Creatinine 03/25/16 03/25/16 03/25/16 07:55 12:19 13:00 WBC RBC Hgb Hct MCV MCH MCHC RDW Plt Count Lymph % (Auto) [place] % (Auto) Lymph # [place] # Baso # Seg Neutrophils % Seg Neuts % (Manual) Lymphocytes % (Manual) Seg Neutrophils # Seg Neutrophils # Man Lymphocytes # (Manual) Monocytes # (Manual) PT INR APTT Heparin Anti-Xa Level POC ABG pH POC ABG pCO2 POC ABG pO2 Sodium Potassium Chloride Carbon Dioxide BUN Creatinine Glucose POC Glucose 231 H 314 H Calcium Phosphorus Lactate Dehydrogenase Total Creatine Kinase NT-Pro-B Natriuret Pep Albumin 3.4 L Ysxdo-5-Rqzlhxyox 0.4 H [place]-0-Pttkdpeow 1.1 H Beta Globulins 0.6 H PEP Interpretation see below H Cholesterol LDL Cholesterol Direct Urine Creatinine 03/25/16 03/25/16 03/26/16 16:41 22:45 08:32 WBC RBC Hgb Hct MCV MCH MCHC RDW Plt Count Lymph % (Auto) [place] % (Auto) Lymph # [place] # Baso # Seg Neutrophils % Seg Neuts % (Manual) Lymphocytes % (Manual) Seg Neutrophils # Seg Neutrophils # Man Lymphocytes # (Manual) Monocytes # (Manual) PT INR APTT Heparin Anti-Xa Level POC ABG pH POC ABG pCO2 POC ABG pO2 Sodium Potassium Chloride Carbon Dioxide BUN Creatinine Glucose POC Glucose 444 H 326 H 360 H Calcium Phosphorus Lactate Dehydrogenase Total Creatine Kinase NT-Pro-B Natriuret Pep Albumin Nzcgo-3-Yrpluuvlg Uxbuq-0-Ljlgjcsqb Beta Globulins PEP Interpretation Cholesterol LDL Cholesterol Direct Urine Creatinine 03/26/16 03/26/16 03/26/16 12:38 15:33 15:47 WBC RBC Hgb Hct MCV MCH MCHC RDW Plt Count Lymph % (Auto) [place] % (Auto) Lymph # [place] # Baso # Seg Neutrophils % Seg Neuts % (Manual) Lymphocytes % (Manual) Seg Neutrophils # Seg Neutrophils # Man Lymphocytes # (Manual) Monocytes # (Manual) PT INR APTT Heparin Anti-Xa Level POC ABG pH 7.511 H POC ABG pCO2 26.5 L POC ABG pO2 70 L Sodium Potassium Chloride Carbon Dioxide BUN Creatinine Glucose POC Glucose 280 H 174 H Calcium Phosphorus Lactate Dehydrogenase Total Creatine Kinase NT-Pro-B Natriuret Pep Albumin Nqlir-8-Lwpwffzal Gmdrw-1-Ojnjxmgpt Beta Globulins PEP Interpretation Cholesterol LDL Cholesterol Direct Urine Creatinine 03/26/16 03/26/16 03/26/16 16:47 16:47 18:51 WBC 14.0 H RBC 5.17 H Hgb Hct MCV MCH 26 L MCHC 31 L RDW Plt Count 139 L Lymph % (Auto) [place] % (Auto) Lymph # [place] # Baso # Seg Neutrophils % Seg Neuts % (Manual) Lymphocytes % (Manual) Seg Neutrophils # Seg Neutrophils # Man Lymphocytes # (Manual) Monocytes # (Manual) PT INR APTT Heparin Anti-Xa Level POC ABG pH POC ABG pCO2 33.9 L POC ABG pO2 150 H Sodium 164 H* Potassium 3.4 L Chloride 128.5 H Carbon Dioxide BUN 30 H Creatinine 2.2 H Glucose 121 H POC Glucose Calcium 8.1 L Phosphorus Lactate Dehydrogenase Total Creatine Kinase NT-Pro-B Natriuret Pep Albumin Zsftr-1-Lzevjyoah Gjrtf-9-Xywsfmant Beta Globulins PEP Interpretation Cholesterol LDL Cholesterol Direct Urine Creatinine 03/27/16 03/27/16 03/27/16 02:19 05:47 06:02 WBC RBC Hgb Hct MCV MCH MCHC RDW Plt Count Lymph % (Auto) [place] % (Auto) Lymph # [place] # Baso # Seg Neutrophils % Seg Neuts % (Manual) Lymphocytes % (Manual) Seg Neutrophils # Seg Neutrophils # Man Lymphocytes # (Manual) Monocytes # (Manual) PT INR APTT Heparin Anti-Xa Level POC ABG pH POC ABG pCO2 27.3 L 30.3 L POC ABG pO2 50 L 112 H Sodium 158 H Potassium Chloride 126.7 H Carbon Dioxide 20 L BUN 25 H Creatinine 1.7 H Glucose POC Glucose Calcium 7.0 L Phosphorus Lactate Dehydrogenase Total Creatine Kinase NT-Pro-B Natriuret Pep Albumin Jpwti-9-Sumjpkfvp Syhja-4-Jcykewfvm Beta Globulins PEP Interpretation Cholesterol LDL Cholesterol Direct Urine Creatinine 03/27/16 03/27/16 03/27/16 07:51 09:20 11:45 WBC 14.2 H RBC Hgb Hct MCV 83 L MCH 27 L MCHC RDW Plt Count 113 L Lymph % (Auto) [place] % (Auto) Lymph # [place] # Baso # Seg Neutrophils % Seg Neuts % (Manual) Lymphocytes % (Manual) Seg Neutrophils # Seg Neutrophils # Man Lymphocytes # (Manual) Monocytes # (Manual) PT INR APTT Heparin Anti-Xa Level POC ABG pH POC ABG pCO2 POC ABG pO2 Sodium Potassium Chloride Carbon Dioxide BUN Creatinine Glucose POC Glucose 124 H 241 H Calcium Phosphorus Lactate Dehydrogenase Total Creatine Kinase NT-Pro-B Natriuret Pep Albumin Ahefv-8-Ltsvbrqgi Dkylb-0-Lopcohkve Beta Globulins PEP Interpretation Cholesterol LDL Cholesterol Direct Urine Creatinine 03/27/16 03/27/16 03/28/16 16:39 22:03 03:29 WBC RBC Hgb Hct MCV MCH MCHC RDW Plt Count Lymph % (Auto) [place] % (Auto) Lymph # [place] # Baso # Seg Neutrophils % Seg Neuts % (Manual) Lymphocytes % (Manual) Seg Neutrophils # Seg Neutrophils # Man Lymphocytes # (Manual) Monocytes # (Manual) PT INR APTT Heparin Anti-Xa Level POC ABG pH POC ABG pCO2 POC ABG pO2 Sodium Potassium Chloride Carbon Dioxide BUN Creatinine Glucose POC Glucose 266 H 167 H 241 H Calcium Phosphorus Lactate Dehydrogenase Total Creatine Kinase NT-Pro-B Natriuret Pep Albumin Xqsug-8-Soyvrwmvj Evqhi-0-Jrsrnuscn Beta Globulins PEP Interpretation Cholesterol LDL Cholesterol Direct Urine Creatinine 03/28/16 03/28/16 03/28/16 05:00 05:00 05:00 WBC RBC Hgb Hct MCV 83 L MCH 27 L MCHC RDW Plt Count 106 L Lymph % (Auto) [place] % (Auto) 10.1 H Lymph # [place] # 1.0 H Baso # Seg Neutrophils % 75.1 H Seg Neuts % (Manual) Lymphocytes % (Manual) Seg Neutrophils # Seg Neutrophils # Man Lymphocytes # (Manual) Monocytes # (Manual) PT INR APTT Heparin Anti-Xa Level POC ABG pH POC ABG pCO2 POC ABG pO2 Sodium 147 H D Potassium 3.1 L D Chloride 112.3 H Carbon Dioxide 21 L BUN Creatinine Glucose 208 H POC Glucose Calcium 7.0 L Phosphorus 2.2 L Lactate Dehydrogenase Total Creatine Kinase NT-Pro-B Natriuret Pep Albumin Pbuoh-4-Nvzusqizo Brrab-9-Hihxbzvos Beta Globulins PEP Interpretation Cholesterol LDL Cholesterol Direct Urine Creatinine 03/28/16 03/28/16 03/28/16 05:14 08:41 10:56 WBC RBC Hgb Hct MCV MCH MCHC RDW Plt Count Lymph % (Auto) [place] % (Auto) Lymph # [place] # Baso # Seg Neutrophils % Seg Neuts % (Manual) Lymphocytes % (Manual) Seg Neutrophils # Seg Neutrophils # Man Lymphocytes # (Manual) Monocytes # (Manual) PT INR APTT Heparin Anti-Xa Level POC ABG pH 7.457 H POC ABG pCO2 29.7 L 27.7 L POC ABG pO2 Sodium Potassium Chloride Carbon Dioxide BUN Creatinine Glucose POC Glucose 228 H Calcium Phosphorus Lactate Dehydrogenase Total Creatine Kinase NT-Pro-B Natriuret Pep Albumin Thogt-5-Prshirjrz Yklqs-5-Pmisxrvbw Beta Globulins PEP Interpretation Cholesterol LDL Cholesterol Direct Urine Creatinine 03/28/16 03/28/16 03/28/16 11:37 13:29 16:22 WBC RBC Hgb Hct MCV MCH MCHC RDW Plt Count Lymph % (Auto) [place] % (Auto) Lymph # [place] # Baso # Seg Neutrophils % Seg Neuts % (Manual) Lymphocytes % (Manual) Seg Neutrophils # Seg Neutrophils # Man Lymphocytes # (Manual) Monocytes # (Manual) PT INR APTT Heparin Anti-Xa Level POC ABG pH POC ABG pCO2 POC ABG pO2 Sodium Potassium Chloride Carbon Dioxide BUN Creatinine Glucose POC Glucose 226 H 200 H Calcium Phosphorus Lactate Dehydrogenase Total Creatine Kinase 356 H NT-Pro-B Natriuret Pep Albumin Lfqxe-3-Uuczbjqja Dsehm-4-Xbwhvducc Beta Globulins PEP Interpretation Cholesterol LDL Cholesterol Direct Urine Creatinine 03/28/16 03/29/16 03/29/16 21:48 04:50 04:50 WBC RBC Hgb 11.5 L Hct 35.3 L MCV 81 L MCH 26 L MCHC RDW Plt Count 97 L Lymph % (Auto) [place] % (Auto) 11.7 H Lymph # [place] # 1.1 H Baso # Seg Neutrophils % Seg Neuts % (Manual) Lymphocytes % (Manual) Seg Neutrophils # Seg Neutrophils # Man Lymphocytes # (Manual) Monocytes # (Manual) PT INR APTT Heparin Anti-Xa Level POC ABG pH POC ABG pCO2 POC ABG pO2 Sodium 136 L D Potassium 3.3 L Chloride Carbon Dioxide 20 L BUN Creatinine Glucose 386 H POC Glucose 188 H Calcium 6.8 L Phosphorus 1.6 L D Lactate Dehydrogenase Total Creatine Kinase NT-Pro-B Natriuret Pep Albumin Sxbvb-1-Nljbxgyts Xdbek-0-Nkfedknvi Beta Globulins PEP Interpretation Cholesterol LDL Cholesterol Direct Urine Creatinine 03/29/16 03/29/16 03/29/16 08:10 11:12 16:09 WBC RBC Hgb Hct MCV MCH MCHC RDW Plt Count Lymph % (Auto) [place] % (Auto) Lymph # [place] # Baso # Seg Neutrophils % Seg Neuts % (Manual) Lymphocytes % (Manual) Seg Neutrophils # Seg Neutrophils # Man Lymphocytes # (Manual) Monocytes # (Manual) PT INR APTT Heparin Anti-Xa Level POC ABG pH POC ABG pCO2 POC ABG pO2 Sodium Potassium Chloride Carbon Dioxide BUN Creatinine Glucose POC Glucose 230 H 180 H 46 L Calcium Phosphorus Lactate Dehydrogenase Total Creatine Kinase NT-Pro-B Natriuret Pep Albumin Tfest-2-Naesokxba Nlsib-4-Qvsanuhlu Beta Globulins PEP Interpretation Cholesterol LDL Cholesterol Direct Urine Creatinine 03/29/16 03/29/16 03/30/16 16:12 18:15 02:53 WBC RBC Hgb Hct MCV MCH MCHC RDW Plt Count Lymph % (Auto) [place] % (Auto) Lymph # [place] # Baso # Seg Neutrophils % Seg Neuts % (Manual) Lymphocytes % (Manual) Seg Neutrophils # Seg Neutrophils # Man Lymphocytes # (Manual) Monocytes # (Manual) PT INR APTT Heparin Anti-Xa Level POC ABG pH POC ABG pCO2 POC ABG pO2 Sodium Potassium Chloride Carbon Dioxide BUN Creatinine Glucose POC Glucose 52 L 118 H 130 H Calcium Phosphorus Lactate Dehydrogenase Total Creatine Kinase NT-Pro-B Natriuret Pep Albumin Txxeu-7-Advssrdqc Nbkck-9-Mldfsawlg Beta Globulins PEP Interpretation Cholesterol LDL Cholesterol Direct Urine Creatinine 03/30/16 03/30/16 03/30/16 04:00 04:00 05:29 WBC RBC Hgb Hct MCV 81 L MCH 26 L MCHC RDW Plt Count 116 L Lymph % (Auto) 10.8 L [place] % (Auto) 13.1 H Lymph # 1.0 L [place] # 1.3 H Baso # Seg Neutrophils % 74.2 H Seg Neuts % (Manual) Lymphocytes % (Manual) Seg Neutrophils # Seg Neutrophils # Man Lymphocytes # (Manual) Monocytes # (Manual) PT INR APTT Heparin Anti-Xa Level POC ABG pH 7.522 H POC ABG pCO2 22.7 L POC ABG pO2 137 H Sodium 147 H D Potassium Chloride 115.5 H Carbon Dioxide 20 L BUN Creatinine Glucose 116 H POC Glucose Calcium 7.6 L Phosphorus 2.3 L D Lactate Dehydrogenase Total Creatine Kinase NT-Pro-B Natriuret Pep Albumin Yhlkh-1-Wrohbwhjc Qnezm-0-Skkcouqab Beta Globulins PEP Interpretation Cholesterol LDL Cholesterol Direct Urine Creatinine 03/30/16 03/30/16 03/30/16 05:47 08:05 08:59 WBC RBC Hgb Hct MCV MCH MCHC RDW Plt Count Lymph % (Auto) [place] % (Auto) Lymph # [place] # Baso # Seg Neutrophils % Seg Neuts % (Manual) Lymphocytes % (Manual) Seg Neutrophils # Seg Neutrophils # Man Lymphocytes # (Manual) Monocytes # (Manual) PT INR APTT Heparin Anti-Xa Level POC ABG pH POC ABG pCO2 26.2 L POC ABG pO2 115 H Sodium Potassium Chloride Carbon Dioxide BUN Creatinine Glucose POC Glucose 138 H 171 H Calcium Phosphorus Lactate Dehydrogenase Total Creatine Kinase NT-Pro-B Natriuret Pep Albumin Uirds-9-Btqhcazrj Njjcr-9-Vihrbzigc Beta Globulins PEP Interpretation Cholesterol LDL Cholesterol Direct Urine Creatinine 03/30/16 03/30/16 03/30/16 12:11 12:11 16:39 WBC RBC Hgb Hct MCV MCH MCHC RDW Plt Count Lymph % (Auto) [place] % (Auto) Lymph # [place] # Baso # Seg Neutrophils % Seg Neuts % (Manual) Lymphocytes % (Manual) Seg Neutrophils # Seg Neutrophils # Man Lymphocytes # (Manual) Monocytes # (Manual) PT INR APTT Heparin Anti-Xa Level POC ABG pH 7.476 H POC ABG pCO2 29.0 L POC ABG pO2 Sodium Potassium Chloride Carbon Dioxide BUN Creatinine Glucose POC Glucose 142 H 59 L Calcium Phosphorus Lactate Dehydrogenase Total Creatine Kinase NT-Pro-B Natriuret Pep Albumin Skmsg-0-Hmmryyoyj Dtxzx-4-Kyddgqorh Beta Globulins PEP Interpretation Cholesterol LDL Cholesterol Direct Urine Creatinine 03/30/16 03/30/16 03/31/16 18:41 21:59 05:02 WBC RBC Hgb Hct MCV MCH MCHC RDW Plt Count Lymph % (Auto) [place] % (Auto) Lymph # [place] # Baso # Seg Neutrophils % Seg Neuts % (Manual) Lymphocytes % (Manual) Seg Neutrophils # Seg Neutrophils # Man Lymphocytes # (Manual) Monocytes # (Manual) PT INR APTT Heparin Anti-Xa Level POC ABG pH 7.519 H POC ABG pCO2 21.8 L POC ABG pO2 142 H Sodium Potassium Chloride Carbon Dioxide BUN Creatinine Glucose POC Glucose 145 H 154 H Calcium Phosphorus Lactate Dehydrogenase Total Creatine Kinase NT-Pro-B Natriuret Pep Albumin Pszki-5-Fzpcnkzhk Tathw-8-Udfpfyugf Beta Globulins PEP Interpretation Cholesterol LDL Cholesterol Direct Urine Creatinine 03/31/16 03/31/16 03/31/16 05:15 05:15 05:15 WBC 13.4 H RBC 5.21 H Hgb Hct MCV 81 L MCH 26 L MCHC RDW Plt Count Lymph % (Auto) 9.5 L [place] % (Auto) 14.0 H Lymph # [place] # 1.9 H Baso # Seg Neutrophils % 75.0 H Seg Neuts % (Manual) Lymphocytes % (Manual) Seg Neutrophils # 10.1 H Seg Neutrophils # Man Lymphocytes # (Manual) Monocytes # (Manual) PT INR APTT Heparin Anti-Xa Level POC ABG pH POC ABG pCO2 POC ABG pO2 Sodium Potassium Chloride 108.5 H Carbon Dioxide 19 L BUN Creatinine Glucose 188 H POC Glucose Calcium Phosphorus Lactate Dehydrogenase Total Creatine Kinase NT-Pro-B Natriuret Pep 1089 H Albumin Xnstg-4-Pphlblqve Srjrg-2-Covvbylmv Beta Globulins PEP Interpretation Cholesterol LDL Cholesterol Direct Urine Creatinine 03/31/16 03/31/16 03/31/16 07:23 11:12 15:20 WBC RBC Hgb Hct MCV MCH MCHC RDW Plt Count Lymph % (Auto) [place] % (Auto) Lymph # [place] # Baso # Seg Neutrophils % Seg Neuts % (Manual) Lymphocytes % (Manual) Seg Neutrophils # Seg Neutrophils # Man Lymphocytes # (Manual) Monocytes # (Manual) PT INR APTT Heparin Anti-Xa Level POC ABG pH POC ABG pCO2 POC ABG pO2 Sodium Potassium Chloride Carbon Dioxide BUN Creatinine Glucose POC Glucose 233 H 228 H 208 H Calcium Phosphorus Lactate Dehydrogenase Total Creatine Kinase NT-Pro-B Natriuret Pep Albumin Zczid-3-Lutwtvdbn [place]-9-Fnywnthri Beta Globulins PEP Interpretation Cholesterol LDL Cholesterol Direct Urine Creatinine 03/31/16 04/01/16 04/01/16 21:27 04:41 05:35 WBC 12.1 H RBC Hgb Hct MCV 81 L MCH 26 L MCHC RDW Plt Count Lymph % (Auto) 8.5 L [place] % (Auto) 14.0 H Lymph # 1.0 L [place] # 1.7 H Baso # Seg Neutrophils % 76.2 H Seg Neuts % (Manual) Lymphocytes % (Manual) Seg Neutrophils # 9.2 H Seg Neutrophils # Man Lymphocytes # (Manual) Monocytes # (Manual) PT INR APTT Heparin Anti-Xa Level POC ABG pH 7.455 H POC ABG pCO2 31.0 L POC ABG pO2 Sodium Potassium Chloride Carbon Dioxide BUN Creatinine Glucose POC Glucose 162 H Calcium Phosphorus Lactate Dehydrogenase Total Creatine Kinase NT-Pro-B Natriuret Pep Albumin Fmtnl-7-Vyaanwsli Zskbt-6-Lpykylbip Beta Globulins PEP Interpretation Cholesterol LDL Cholesterol Direct Urine Creatinine 04/01/16 04/01/16 04/01/16 05:35 08:44 12:49 WBC RBC Hgb Hct MCV MCH MCHC RDW Plt Count Lymph % (Auto) [place] % (Auto) Lymph # [place] # Baso # Seg Neutrophils % Seg Neuts % (Manual) Lymphocytes % (Manual) Seg Neutrophils # Seg Neutrophils # Man Lymphocytes # (Manual) Monocytes # (Manual) PT INR APTT Heparin Anti-Xa Level POC ABG pH POC ABG pCO2 POC ABG pO2 Sodium Potassium Chloride Carbon Dioxide BUN Creatinine Glucose 256 H POC Glucose 257 H 279 H Calcium 8.0 L Phosphorus Lactate Dehydrogenase Total Creatine Kinase NT-Pro-B Natriuret Pep 1205 H Albumin [place]-2-Cjpghlhrb Qqxen-9-Ganvsmjja Beta Globulins PEP Interpretation Cholesterol LDL Cholesterol Direct Urine Creatinine 04/01/16 04/02/16 04/02/16 18:12 00:42 04:17 WBC RBC Hgb Hct MCV MCH MCHC RDW Plt Count Lymph % (Auto) [place] % (Auto) Lymph # [place] # Baso # Seg Neutrophils % Seg Neuts % (Manual) Lymphocytes % (Manual) Seg Neutrophils # Seg Neutrophils # Man Lymphocytes # (Manual) Monocytes # (Manual) PT INR APTT Heparin Anti-Xa Level POC ABG pH 7.582 H POC ABG pCO2 26.8 L POC ABG pO2 Sodium Potassium Chloride Carbon Dioxide BUN Creatinine Glucose POC Glucose 168 H 282 H Calcium Phosphorus Lactate Dehydrogenase Total Creatine Kinase NT-Pro-B Natriuret Pep Albumin Iddpt-1-Lwybocpbv Khvce-4-Qyztormju Beta Globulins PEP Interpretation Cholesterol LDL Cholesterol Direct Urine Creatinine 04/02/16 04/02/16 04/02/16 05:00 05:00 06:27 WBC 12.4 H RBC Hgb Hct MCV 81 L MCH 26 L MCHC RDW Plt Count Lymph % (Auto) 6.4 L [place] % (Auto) 13.3 H Lymph # 0.8 L [place] # 1.7 H Baso # Seg Neutrophils % 79.4 H Seg Neuts % (Manual) Lymphocytes % (Manual) Seg Neutrophils # 9.9 H Seg Neutrophils # Man Lymphocytes # (Manual) Monocytes # (Manual) PT INR APTT Heparin Anti-Xa Level POC ABG pH POC ABG pCO2 POC ABG pO2 Sodium 146 H Potassium Chloride Carbon Dioxide BUN Creatinine Glucose 334 H POC Glucose 317 H Calcium 8.0 L Phosphorus Lactate Dehydrogenase Total Creatine Kinase NT-Pro-B Natriuret Pep Albumin Bekzn-1-Nhgimvosm Fkiyk-6-Swzxvooyx Beta Globulins PEP Interpretation Cholesterol LDL Cholesterol Direct Urine Creatinine 04/02/16 04/02/16 04/02/16 11:51 13:10 17:24 WBC RBC Hgb Hct MCV MCH MCHC RDW Plt Count Lymph % (Auto) [place] % (Auto) Lymph # [place] # Baso # Seg Neutrophils % Seg Neuts % (Manual) Lymphocytes % (Manual) Seg Neutrophils # Seg Neutrophils # Man Lymphocytes # (Manual) Monocytes # (Manual) PT INR APTT Heparin Anti-Xa Level POC ABG pH 7.518 H POC ABG pCO2 POC ABG pO2 Sodium Potassium Chloride Carbon Dioxide BUN Creatinine Glucose POC Glucose 278 H 195 H Calcium Phosphorus Lactate Dehydrogenase Total Creatine Kinase NT-Pro-B Natriuret Pep Albumin Isequ-5-Xuziumuvt Zpvhn-3-Arilvgxvf Beta Globulins PEP Interpretation Cholesterol LDL Cholesterol Direct Urine Creatinine 04/03/16 04/03/16 04/03/16 00:18 04:10 04:10 WBC 14.3 H RBC Hgb Hct MCV 81 L MCH 26 L MCHC RDW Plt Count Lymph % (Auto) 9.0 L [place] % (Auto) 10.7 H Lymph # [place] # 1.5 H Baso # 0.2 H Seg Neutrophils % 78.5 H Seg Neuts % (Manual) Lymphocytes % (Manual) Seg Neutrophils # 11.3 H Seg Neutrophils # Man Lymphocytes # (Manual) Monocytes # (Manual) PT INR APTT Heparin Anti-Xa Level POC ABG pH POC ABG pCO2 POC ABG pO2 Sodium 148 H Potassium Chloride 108.1 H Carbon Dioxide BUN 21 H Creatinine Glucose 227 H POC Glucose 144 H Calcium 8.2 L Phosphorus Lactate Dehydrogenase Total Creatine Kinase NT-Pro-B Natriuret Pep Albumin Dxhlc-5-Vfwvxlkvw Bdreg-7-Tjhnsiinu Beta Globulins PEP Interpretation Cholesterol LDL Cholesterol Direct Urine Creatinine 04/03/16 04/03/16 04/04/16 11:14 17:10 04:00 WBC 14.5 H RBC Hgb Hct MCV 81 L MCH 26 L MCHC RDW Plt Count Lymph % (Auto) 7.2 L [place] % (Auto) 7.6 H Lymph # 1.0 L [place] # 1.1 H Baso # Seg Neutrophils % 84.5 H Seg Neuts % (Manual) Lymphocytes % (Manual) Seg Neutrophils # 12.3 H Seg Neutrophils # Man Lymphocytes # (Manual) Monocytes # (Manual) PT INR APTT Heparin Anti-Xa Level POC ABG pH POC ABG pCO2 POC ABG pO2 Sodium Potassium Chloride Carbon Dioxide BUN Creatinine Glucose POC Glucose 267 H 212 H Calcium Phosphorus Lactate Dehydrogenase Total Creatine Kinase NT-Pro-B Natriuret Pep Albumin Hwdqr-5-Avcbaluye Ofmbl-5-Gbhdfngbm Beta Globulins PEP Interpretation Cholesterol LDL Cholesterol Direct Urine Creatinine 04/04/16 04/04/16 04/04/16 05:00 09:55 09:55 WBC RBC Hgb 11.5 L Hct MCV MCH MCHC RDW Plt Count Lymph % (Auto) [place] % (Auto) Lymph # [place] # Baso # Seg Neutrophils % Seg Neuts % (Manual) Lymphocytes % (Manual) Seg Neutrophils # Seg Neutrophils # Man Lymphocytes # (Manual) Monocytes # (Manual) PT INR APTT 42.1 H Heparin Anti-Xa Level POC ABG pH POC ABG pCO2 POC ABG pO2 Sodium 146 H Potassium Chloride Carbon Dioxide BUN 22 H Creatinine Glucose 128 H POC Glucose Calcium Phosphorus Lactate Dehydrogenase Total Creatine Kinase NT-Pro-B Natriuret Pep Albumin Qdikz-4-Rmeodgqqx Wjrjg-7-Wvgqksyqe Beta Globulins PEP Interpretation Cholesterol LDL Cholesterol Direct Urine Creatinine 04/04/16 04/04/16 04/04/16 11:45 17:49 17:55 WBC RBC Hgb Hct MCV MCH MCHC RDW Plt Count Lymph % (Auto) [place] % (Auto) Lymph # [place] # Baso # Seg Neutrophils % Seg Neuts % (Manual) Lymphocytes % (Manual) Seg Neutrophils # Seg Neutrophils # Man Lymphocytes # (Manual) Monocytes # (Manual) PT INR APTT Heparin Anti-Xa Level 1.19 H POC ABG pH POC ABG pCO2 POC ABG pO2 Sodium Potassium Chloride Carbon Dioxide BUN Creatinine Glucose POC Glucose 231 H 186 H Calcium Phosphorus Lactate Dehydrogenase Total Creatine Kinase NT-Pro-B Natriuret Pep Albumin Ttltq-1-Eajqmqmme Qocga-5-Gdckgvmep Beta Globulins PEP Interpretation Cholesterol LDL Cholesterol Direct Urine Creatinine 04/05/16 04/05/16 04/05/16 00:35 05:32 05:42 WBC RBC Hgb Hct MCV MCH MCHC RDW Plt Count Lymph % (Auto) [place] % (Auto) Lymph # [place] # Baso # Seg Neutrophils % Seg Neuts % (Manual) Lymphocytes % (Manual) Seg Neutrophils # Seg Neutrophils # Man Lymphocytes # (Manual) Monocytes # (Manual) PT INR APTT Heparin Anti-Xa Level POC ABG pH 7.491 H POC ABG pCO2 POC ABG pO2 Sodium Potassium Chloride Carbon Dioxide BUN Creatinine Glucose POC Glucose 192 H 242 H Calcium Phosphorus Lactate Dehydrogenase Total Creatine Kinase NT-Pro-B Natriuret Pep Albumin Dfoxr-2-Asvctiedf Daxbx-2-Agckfnxgm Beta Globulins PEP Interpretation Cholesterol LDL Cholesterol Direct Urine Creatinine 04/05/16 04/05/16 04/05/16 06:20 06:20 12:19 WBC 13.9 H RBC Hgb 11.6 L Hct MCV 81 L MCH 26 L MCHC RDW Plt Count Lymph % (Auto) 9.6 L [place] % (Auto) 8.7 H Lymph # [place] # 1.2 H Baso # Seg Neutrophils % 80.9 H Seg Neuts % (Manual) Lymphocytes % (Manual) Seg Neutrophils # 11.3 H Seg Neutrophils # Man Lymphocytes # (Manual) Monocytes # (Manual) PT INR APTT Heparin Anti-Xa Level POC ABG pH POC ABG pCO2 POC ABG pO2 Sodium 148 H Potassium Chloride Carbon Dioxide BUN 23 H Creatinine Glucose 242 H POC Glucose 187 H Calcium Phosphorus Lactate Dehydrogenase Total Creatine Kinase NT-Pro-B Natriuret Pep Albumin Kpqkk-4-Yijtdnxng Iaxlw-3-Pvcgdohwy Beta Globulins PEP Interpretation Cholesterol LDL Cholesterol Direct Urine Creatinine 04/05/16 04/05/16 04/06/16 17:10 23:45 05:23 WBC 13.0 H RBC Hgb Hct MCV 82 L MCH 26 L MCHC 31 L RDW Plt Count Lymph % (Auto) 6.7 L [place] % (Auto) 8.3 H Lymph # 0.9 L [place] # 1.1 H Baso # Seg Neutrophils % 84.6 H Seg Neuts % (Manual) Lymphocytes % (Manual) Seg Neutrophils # 11.0 H Seg Neutrophils # Man Lymphocytes # (Manual) Monocytes # (Manual) PT INR APTT Heparin Anti-Xa Level POC ABG pH POC ABG pCO2 POC ABG pO2 Sodium Potassium Chloride Carbon Dioxide BUN Creatinine Glucose POC Glucose 169 H 202 H Calcium Phosphorus Lactate Dehydrogenase Total Creatine Kinase NT-Pro-B Natriuret Pep Albumin Mnkrg-2-Ffvoxkvdq Nrwsf-1-Ychaxgbln Beta Globulins PEP Interpretation Cholesterol LDL Cholesterol Direct Urine Creatinine 04/06/16 04/06/16 04/06/16 05:23 05:23 06:11 WBC RBC Hgb Hct MCV MCH MCHC RDW Plt Count Lymph % (Auto) [place] % (Auto) Lymph # [place] # Baso # Seg Neutrophils % Seg Neuts % (Manual) Lymphocytes % (Manual) Seg Neutrophils # Seg Neutrophils # Man Lymphocytes # (Manual) Monocytes # (Manual) PT INR APTT Heparin Anti-Xa Level 0.21 L POC ABG pH POC ABG pCO2 POC ABG pO2 Sodium 153 H Potassium Chloride 111.3 H Carbon Dioxide BUN 22 H Creatinine Glucose 62 L POC Glucose 56 L Calcium Phosphorus Lactate Dehydrogenase Total Creatine Kinase NT-Pro-B Natriuret Pep Albumin Ktsty-0-Uxiadpgio Yjgyy-6-Lcyfcjbka Beta Globulins PEP Interpretation Cholesterol LDL Cholesterol Direct Urine Creatinine 04/06/16 04/06/16 04/06/16 06:52 11:36 14:58 WBC RBC Hgb Hct MCV MCH MCHC RDW Plt Count Lymph % (Auto) [place] % (Auto) Lymph # [place] # Baso # Seg Neutrophils % Seg Neuts % (Manual) Lymphocytes % (Manual) Seg Neutrophils # Seg Neutrophils # Man Lymphocytes # (Manual) Monocytes # (Manual) PT INR APTT Heparin Anti-Xa Level POC ABG pH POC ABG pCO2 POC ABG pO2 Sodium Potassium Chloride Carbon Dioxide BUN Creatinine Glucose POC Glucose 206 H 139 H 147 H Calcium Phosphorus Lactate Dehydrogenase Total Creatine Kinase NT-Pro-B Natriuret Pep Albumin Ysqyw-6-Gsdqdqyth Akult-8-Tsrwjymwc Beta Globulins PEP Interpretation Cholesterol LDL Cholesterol Direct Urine Creatinine 04/06/16 04/06/16 04/06/16 16:03 21:18 23:53 WBC RBC Hgb Hct MCV MCH MCHC RDW Plt Count Lymph % (Auto) [place] % (Auto) Lymph # [place] # Baso # Seg Neutrophils % Seg Neuts % (Manual) Lymphocytes % (Manual) Seg Neutrophils # Seg Neutrophils # Man Lymphocytes # (Manual) Monocytes # (Manual) PT INR APTT Heparin Anti-Xa Level POC ABG pH POC ABG pCO2 POC ABG pO2 Sodium Potassium Chloride Carbon Dioxide BUN Creatinine Glucose POC Glucose 154 H 293 H 301 H Calcium Phosphorus Lactate Dehydrogenase Total Creatine Kinase NT-Pro-B Natriuret Pep Albumin Xztyq-5-Lnztkzxrx Xbeez-1-Sznfdrvuu Beta Globulins PEP Interpretation Cholesterol LDL Cholesterol Direct Urine Creatinine 04/07/16 04/07/16 04/07/16 02:30 05:11 05:11 WBC 12.5 H RBC Hgb 11.5 L Hct MCV 82 L MCH 26 L MCHC 31 L RDW Plt Count Lymph % (Auto) [place] % (Auto) Lymph # [place] # Baso # Seg Neutrophils % Seg Neuts % (Manual) Lymphocytes % (Manual) Seg Neutrophils # Seg Neutrophils # Man Lymphocytes # (Manual) Monocytes # (Manual) PT INR APTT Heparin Anti-Xa Level 0.11 L POC ABG pH POC ABG pCO2 POC ABG pO2 Sodium 150 H Potassium Chloride 109.5 H Carbon Dioxide BUN 28 H Creatinine Glucose 264 H POC Glucose Calcium Phosphorus Lactate Dehydrogenase Total Creatine Kinase NT-Pro-B Natriuret Pep Albumin Ywenp-1-Wdmibzdiq Aywou-6-Seryomtmz Beta Globulins PEP Interpretation Cholesterol LDL Cholesterol Direct Urine Creatinine 04/07/16 04/07/16 04/07/16 06:46 10:18 11:50 WBC RBC Hgb Hct MCV MCH MCHC RDW Plt Count Lymph % (Auto) [place] % (Auto) Lymph # [place] # Baso # Seg Neutrophils % Seg Neuts % (Manual) Lymphocytes % (Manual) Seg Neutrophils # Seg Neutrophils # Man Lymphocytes # (Manual) Monocytes # (Manual) PT 15.1 H INR 1.20 H APTT Heparin Anti-Xa Level POC ABG pH POC ABG pCO2 POC ABG pO2 Sodium Potassium Chloride Carbon Dioxide BUN Creatinine Glucose POC Glucose 259 H 288 H Calcium Phosphorus Lactate Dehydrogenase Total Creatine Kinase NT-Pro-B Natriuret Pep Albumin Tykdo-8-Detqdpzmd Fvcvi-7-Tsosvekab Beta Globulins PEP Interpretation Cholesterol LDL Cholesterol Direct Urine Creatinine 04/07/16 04/08/16 04/08/16 17:58 01:25 06:49 WBC RBC Hgb Hct MCV MCH MCHC RDW Plt Count Lymph % (Auto) [place] % (Auto) Lymph # [place] # Baso # Seg Neutrophils % Seg Neuts % (Manual) Lymphocytes % (Manual) Seg Neutrophils # Seg Neutrophils # Man Lymphocytes # (Manual) Monocytes # (Manual) PT INR APTT Heparin Anti-Xa Level POC ABG pH POC ABG pCO2 POC ABG pO2 Sodium 156 H Potassium Chloride 114.7 H Carbon Dioxide BUN 33 H Creatinine Glucose 169 H POC Glucose 330 H 146 H Calcium Phosphorus Lactate Dehydrogenase Total Creatine Kinase NT-Pro-B Natriuret Pep Albumin Lvtqg-9-Bwcymhint Wnzly-4-Pzzzlbeee Beta Globulins PEP Interpretation Cholesterol LDL Cholesterol Direct Urine Creatinine 04/08/16 04/08/16 04/08/16 07:34 10:28 10:28 WBC RBC Hgb Hct MCV MCH MCHC RDW Plt Count Lymph % (Auto) [place] % (Auto) Lymph # [place] # Baso # Seg Neutrophils % Seg Neuts % (Manual) Lymphocytes % (Manual) Seg Neutrophils # Seg Neutrophils # Man Lymphocytes # (Manual) Monocytes # (Manual) PT 15.5 H INR 1.24 H APTT Heparin Anti-Xa Level 0.24 L POC ABG pH POC ABG pCO2 POC ABG pO2 Sodium Potassium Chloride Carbon Dioxide BUN Creatinine Glucose POC Glucose 232 H Calcium Phosphorus Lactate Dehydrogenase Total Creatine Kinase NT-Pro-B Natriuret Pep Albumin Ornuk-4-Molqmbekb Eetsj-7-Vxlykwwcq Beta Globulins PEP Interpretation Cholesterol LDL Cholesterol Direct Urine Creatinine 04/08/16 04/08/16 04/09/16 11:36 15:38 00:01 WBC RBC Hgb Hct MCV MCH MCHC RDW Plt Count Lymph % (Auto) [place] % (Auto) Lymph # Live # [place] # Seg Neutrophils % Seg Neuts % (Manual) Lymphocytes % (Manual) Seg Neutrophils # Seg Neutrophils # Man Lymphocytes # (Manual) Monocytes # (Manual) PT INR APTT Heparin Anti-Xa Level POC ABG pH POC ABG pCO2 POC ABG pO2 Sodium Potassium Chloride Carbon Dioxide BUN Creatinine Glucose POC Glucose 193 H 163 H 180 H Calcium Phosphorus Lactate Dehydrogenase Total Creatine Kinase NT-Pro-B Natriuret Pep Albumin Valsj-7-Alxogtfsc Ntcxz-1-Rfapjzszd Beta Globulins PEP Interpretation Cholesterol LDL Cholesterol Direct Urine Creatinine 04/09/16 04/09/16 04/09/16 06:17 06:42 06:42 WBC RBC Hgb Hct MCV MCH MCHC RDW Plt Count Lymph % (Auto) [place] % (Auto) Lymph # [place] # Baso # Seg Neutrophils % Seg Neuts % (Manual) Lymphocytes % (Manual) Seg Neutrophils # Seg Neutrophils # Man Lymphocytes # (Manual) Monocytes # (Manual) PT 17.4 H INR 1.43 H APTT Heparin Anti-Xa Level POC ABG pH POC ABG pCO2 POC ABG pO2 Sodium 153 H Potassium Chloride 113.2 H Carbon Dioxide BUN 29 H Creatinine Glucose 301 H POC Glucose 249 H Calcium 8.3 L Phosphorus Lactate Dehydrogenase Total Creatine Kinase NT-Pro-B Natriuret Pep Albumin Kntyi-8-Gzecvdnux Eetac-2-Mxpgecxhl Beta Globulins PEP Interpretation Cholesterol LDL Cholesterol Direct Urine Creatinine 04/09/16 04/09/16 04/09/16 07:37 11:26 15:45 WBC RBC Hgb Hct MCV MCH MCHC RDW Plt Count Lymph % (Auto) [place] % (Auto) Lymph # [place] # Baso # Seg Neutrophils % Seg Neuts % (Manual) Lymphocytes % (Manual) Seg Neutrophils # Seg Neutrophils # Man Lymphocytes # (Manual) Monocytes # (Manual) PT INR APTT Heparin Anti-Xa Level POC ABG pH POC ABG pCO2 POC ABG pO2 Sodium Potassium Chloride Carbon Dioxide BUN Creatinine Glucose POC Glucose 283 H 306 H 354 H Calcium Phosphorus Lactate Dehydrogenase Total Creatine Kinase NT-Pro-B Natriuret Pep Albumin Wxvmw-5-Oktipkftw Mlagy-9-Tybjcptcx Beta Globulins PEP Interpretation Cholesterol LDL Cholesterol Direct Urine Creatinine 04/10/16 04/10/16 04/10/16 00:53 07:15 07:34 WBC RBC Hgb 11.3 L Hct MCV MCH MCHC RDW Plt Count Lymph % (Auto) [place] % (Auto) Lymph # [place] # Baso # Seg Neutrophils % Seg Neuts % (Manual) Lymphocytes % (Manual) Seg Neutrophils # Seg Neutrophils # Man Lymphocytes # (Manual) Monocytes # (Manual) PT INR APTT Heparin Anti-Xa Level POC ABG pH POC ABG pCO2 POC ABG pO2 Sodium Potassium Chloride Carbon Dioxide BUN Creatinine Glucose POC Glucose 323 H 311 H Calcium Phosphorus Lactate Dehydrogenase Total Creatine Kinase NT-Pro-B Natriuret Pep Albumin Dtxzx-5-Civkjkktx Fzhxb-7-Kexxmrtwv Beta Globulins PEP Interpretation Cholesterol LDL Cholesterol Direct Urine Creatinine 04/10/16 04/10/16 04/10/16 07:34 07:34 11:25 WBC RBC Hgb Hct MCV MCH MCHC RDW Plt Count Lymph % (Auto) [place] % (Auto) Lymph # [place] # Baso # Seg Neutrophils % Seg Neuts % (Manual) Lymphocytes % (Manual) Seg Neutrophils # Seg Neutrophils # Man Lymphocytes # (Manual) Monocytes # (Manual) PT 17.3 H INR 1.42 H APTT Heparin Anti-Xa Level POC ABG pH POC ABG pCO2 POC ABG pO2 Sodium 158 H Potassium Chloride 118.6 H Carbon Dioxide BUN 30 H Creatinine Glucose 330 H POC Glucose 335 H Calcium 8.3 L Phosphorus Lactate Dehydrogenase Total Creatine Kinase NT-Pro-B Natriuret Pep Albumin Xyvbv-4-Ffaerqeti Pffik-1-Ooeoiyrrj Beta Globulins PEP Interpretation Cholesterol LDL Cholesterol Direct Urine Creatinine 04/10/16 04/11/16 04/11/16 16:21 00:29 07:47 WBC RBC Hgb Hct MCV MCH MCHC RDW Plt Count Lymph % (Auto) [place] % (Auto) Lymph # [place] # Baso # Seg Neutrophils % Seg Neuts % (Manual) Lymphocytes % (Manual) Seg Neutrophils # Seg Neutrophils # Man Lymphocytes # (Manual) Monocytes # (Manual) PT 18.4 H INR 1.53 H APTT Heparin Anti-Xa Level POC ABG pH POC ABG pCO2 POC ABG pO2 Sodium Potassium Chloride Carbon Dioxide BUN Creatinine Glucose POC Glucose 230 H 162 H Calcium Phosphorus Lactate Dehydrogenase Total Creatine Kinase NT-Pro-B Natriuret Pep Albumin Apnuv-3-Kirtgyqwl Rbqvb-0-Slfibbohm Beta Globulins PEP Interpretation Cholesterol LDL Cholesterol Direct Urine Creatinine 04/11/16 04/11/16 04/12/16 07:47 11:22 04:54 WBC RBC Hgb 11.0 L Hct 35.0 L MCV MCH MCHC RDW Plt Count Lymph % (Auto) [place] % (Auto) Lymph # [place] # Baso # Seg Neutrophils % Seg Neuts % (Manual) Lymphocytes % (Manual) Seg Neutrophils # Seg Neutrophils # Man Lymphocytes # (Manual) Monocytes # (Manual) PT INR APTT Heparin Anti-Xa Level POC ABG pH POC ABG pCO2 POC ABG pO2 Sodium 155 H Potassium Chloride 114.5 H Carbon Dioxide BUN 23 H Creatinine Glucose 157 H POC Glucose 229 H Calcium Phosphorus Lactate Dehydrogenase Total Creatine Kinase NT-Pro-B Natriuret Pep Albumin Mavkp-9-Etlziwsbe Bugds-9-Pihorchib Beta Globulins PEP Interpretation Cholesterol LDL Cholesterol Direct Urine Creatinine 04/12/16 04/12/16 04/12/16 04:54 04:54 05:57 WBC RBC Hgb Hct MCV MCH MCHC RDW Plt Count Lymph % (Auto) [place] % (Auto) Lymph # [place] # Baso # Seg Neutrophils % Seg Neuts % (Manual) Lymphocytes % (Manual) Seg Neutrophils # Seg Neutrophils # Man Lymphocytes # (Manual) Monocytes # (Manual) PT 22.5 H INR 1.98 H APTT Heparin Anti-Xa Level 0.19 L POC ABG pH POC ABG pCO2 POC ABG pO2 Sodium 156 H Potassium Chloride 115.4 H Carbon Dioxide BUN 23 H Creatinine Glucose 143 H POC Glucose 194 H Calcium Phosphorus Lactate Dehydrogenase Total Creatine Kinase NT-Pro-B Natriuret Pep Albumin Jgjnq-6-Gvggdpvfp Blzio-1-Ztsrbxnrc Beta Globulins PEP Interpretation Cholesterol LDL Cholesterol Direct Urine Creatinine 04/12/16 04/12/16 04/12/16 12:34 19:01 23:30 WBC RBC Hgb Hct MCV MCH MCHC RDW Plt Count Lymph % (Auto) [place] % (Auto) Lymph # [place] # Baso # Seg Neutrophils % Seg Neuts % (Manual) Lymphocytes % (Manual) Seg Neutrophils # Seg Neutrophils # Man Lymphocytes # (Manual) Monocytes # (Manual) PT INR APTT Heparin Anti-Xa Level POC ABG pH POC ABG pCO2 POC ABG pO2 Sodium Potassium Chloride Carbon Dioxide BUN Creatinine Glucose POC Glucose 291 H 235 H 154 H Calcium Phosphorus Lactate Dehydrogenase Total Creatine Kinase NT-Pro-B Natriuret Pep Albumin Dlttl-4-Xejpdpcsk Chkrh-2-Awkllbwco Beta Globulins PEP Interpretation Cholesterol LDL Cholesterol Direct Urine Creatinine 04/13/16 04/13/16 04/13/16 05:16 05:16 05:28 WBC RBC Hgb Hct MCV MCH MCHC RDW Plt Count Lymph % (Auto) [place] % (Auto) Lymph # [place] # Baso # Seg Neutrophils % Seg Neuts % (Manual) Lymphocytes % (Manual) Seg Neutrophils # Seg Neutrophils # Man Lymphocytes # (Manual) Monocytes # (Manual) PT 27.0 H INR 2.49 H APTT Heparin Anti-Xa Level 0.20 L POC ABG pH POC ABG pCO2 POC ABG pO2 Sodium 150 H Potassium Chloride 110.5 H Carbon Dioxide BUN 21 H Creatinine Glucose 159 H POC Glucose 177 H Calcium Phosphorus Lactate Dehydrogenase Total Creatine Kinase NT-Pro-B Natriuret Pep Albumin Yfvkz-5-Ikwmxulhr Blczm-7-Gipkzfzrp Beta Globulins PEP Interpretation Cholesterol LDL Cholesterol Direct Urine Creatinine 04/13/16 04/13/16 04/14/16 11:30 17:54 00:44 WBC RBC Hgb Hct MCV MCH MCHC RDW Plt Count Lymph % (Auto) [place] % (Auto) Lymph # [place] # Baso # Seg Neutrophils % Seg Neuts % (Manual) Lymphocytes % (Manual) Seg Neutrophils # Seg Neutrophils # Man Lymphocytes # (Manual) Monocytes # (Manual) PT INR APTT Heparin Anti-Xa Level POC ABG pH POC ABG pCO2 POC ABG pO2 Sodium Potassium Chloride Carbon Dioxide BUN Creatinine Glucose POC Glucose 181 H 251 H 237 H Calcium Phosphorus Lactate Dehydrogenase Total Creatine Kinase NT-Pro-B Natriuret Pep Albumin Uazxn-8-Ytclcpzlj Spfkd-4-Hekobuyfe Beta Globulins PEP Interpretation Cholesterol LDL Cholesterol Direct Urine Creatinine 04/14/16 04/14/16 04/14/16 05:00 05:42 05:42 WBC RBC Hgb Hct MCV MCH MCHC RDW Plt Count Lymph % (Auto) [place] % (Auto) Lymph # [place] # Baso # Seg Neutrophils % Seg Neuts % (Manual) Lymphocytes % (Manual) Seg Neutrophils # Seg Neutrophils # Man Lymphocytes # (Manual) Monocytes # (Manual) PT 30.3 H INR 2.88 H APTT Heparin Anti-Xa Level 0.27 L POC ABG pH POC ABG pCO2 POC ABG pO2 Sodium Potassium 3.5 L Chloride Carbon Dioxide BUN Creatinine Glucose 160 H POC Glucose Calcium 8.2 L Phosphorus Lactate Dehydrogenase Total Creatine Kinase NT-Pro-B Natriuret Pep Albumin Umvpf-9-Zxjawpvqt Jwpgh-3-Ynkrdpuzq Beta Globulins PEP Interpretation Cholesterol LDL Cholesterol Direct Urine Creatinine 04/14/16 04/14/16 04/14/16 06:02 06:16 09:18 WBC 12.3 H RBC Hgb 11.4 L Hct MCV 82 L MCH 26 L MCHC RDW Plt Count Lymph % (Auto) [place] % (Auto) Lymph # [place] # Baso # Seg Neutrophils % Seg Neuts % (Manual) Lymphocytes % (Manual) Seg Neutrophils # Seg Neutrophils # Man Lymphocytes # (Manual) Monocytes # (Manual) PT INR APTT Heparin Anti-Xa Level POC ABG pH POC ABG pCO2 POC ABG pO2 Sodium Potassium Chloride Carbon Dioxide BUN Creatinine Glucose POC Glucose 156 H 164 H Calcium Phosphorus Lactate Dehydrogenase Total Creatine Kinase NT-Pro-B Natriuret Pep Albumin Mqswv-9-Gxjrlsjvv Ktiac-3-Enuznhdgy Beta Globulins PEP Interpretation Cholesterol LDL Cholesterol Direct Urine Creatinine 04/14/16 04/15/16 04/15/16 13:58 01:07 06:04 WBC RBC Hgb Hct MCV MCH MCHC RDW Plt Count Lymph % (Auto) [place] % (Auto) Lymph # [place] # Baso # Seg Neutrophils % Seg Neuts % (Manual) Lymphocytes % (Manual) Seg Neutrophils # Seg Neutrophils # Man Lymphocytes # (Manual) Monocytes # (Manual) PT 24.9 H INR 2.25 H APTT Heparin Anti-Xa Level POC ABG pH POC ABG pCO2 POC ABG pO2 Sodium Potassium Chloride Carbon Dioxide BUN Creatinine Glucose POC Glucose 109 H 154 H Calcium Phosphorus Lactate Dehydrogenase Total Creatine Kinase NT-Pro-B Natriuret Pep Albumin Arsol-4-Betyfkbbb Ibkpj-1-Zvzzuicaf Beta Globulins PEP Interpretation Cholesterol LDL Cholesterol Direct Urine Creatinine 04/15/16 04/15/16 04/16/16 06:08 12:41 00:38 WBC RBC Hgb Hct MCV MCH MCHC RDW Plt Count Lymph % (Auto) [place] % (Auto) Lymph # [place] # Baso # Seg Neutrophils % Seg Neuts % (Manual) Lymphocytes % (Manual) Seg Neutrophils # Seg Neutrophils # Man Lymphocytes # (Manual) Monocytes # (Manual) PT INR APTT Heparin Anti-Xa Level POC ABG pH POC ABG pCO2 POC ABG pO2 Sodium Potassium Chloride Carbon Dioxide BUN Creatinine Glucose POC Glucose 165 H 223 H 216 H Calcium Phosphorus Lactate Dehydrogenase Total Creatine Kinase NT-Pro-B Natriuret Pep Albumin Drsua-0-Whanfdhyh Xhdst-6-Wexjmkovr Beta Globulins PEP Interpretation Cholesterol LDL Cholesterol Direct Urine Creatinine 04/16/16 04/16/16 04/16/16 05:45 07:09 14:00 WBC RBC Hgb Hct MCV MCH MCHC RDW Plt Count Lymph % (Auto) [place] % (Auto) Lymph # [place] # Baso # Seg Neutrophils % Seg Neuts % (Manual) Lymphocytes % (Manual) Seg Neutrophils # Seg Neutrophils # Man Lymphocytes # (Manual) Monocytes # (Manual) PT 19.4 H INR 1.64 H APTT Heparin Anti-Xa Level 0.10 L POC ABG pH POC ABG pCO2 POC ABG pO2 Sodium Potassium Chloride Carbon Dioxide BUN Creatinine Glucose POC Glucose 207 H 69 L Calcium Phosphorus Lactate Dehydrogenase Total Creatine Kinase NT-Pro-B Natriuret Pep Albumin Zuagi-4-Mobenrpby Gqhhv-1-Pimriuctd Beta Globulins PEP Interpretation Cholesterol LDL Cholesterol Direct Urine Creatinine 04/16/16 04/16/16 04/16/16 17:40 17:52 19:38 WBC RBC Hgb Hct MCV MCH MCHC RDW Plt Count Lymph % (Auto) [place] % (Auto) Lymph # [place] # Baso # Seg Neutrophils % Seg Neuts % (Manual) Lymphocytes % (Manual) Seg Neutrophils # Seg Neutrophils # Man Lymphocytes # (Manual) Monocytes # (Manual) PT INR APTT Heparin Anti-Xa Level 0.26 L POC ABG pH 7.543 H 7.488 H POC ABG pCO2 26.3 L 30.3 L POC ABG pO2 55 L 203 H Sodium Potassium Chloride Carbon Dioxide BUN Creatinine Glucose POC Glucose Calcium Phosphorus Lactate Dehydrogenase Total Creatine Kinase NT-Pro-B Natriuret Pep Albumin Khano-6-Esaxvfpwi Paduv-9-Kvfjblxrb Beta Globulins PEP Interpretation Cholesterol LDL Cholesterol Direct Urine Creatinine 04/17/16 04/17/16 04/17/16 00:04 05:10 05:36 WBC RBC Hgb Hct MCV MCH MCHC RDW Plt Count Lymph % (Auto) [place] % (Auto) Lymph # [place] # Baso # Seg Neutrophils % Seg Neuts % (Manual) Lymphocytes % (Manual) Seg Neutrophils # Seg Neutrophils # Man Lymphocytes # (Manual) Monocytes # (Manual) PT INR APTT Heparin Anti-Xa Level POC ABG pH POC ABG pCO2 32.7 L POC ABG pO2 68 L Sodium Potassium Chloride Carbon Dioxide BUN Creatinine Glucose POC Glucose 113 H 161 H Calcium Phosphorus Lactate Dehydrogenase Total Creatine Kinase NT-Pro-B Natriuret Pep Albumin [id number] Fnnzn-5-Onljkaecq Beta Globulins PEP Interpretation Cholesterol LDL Cholesterol Direct Urine Creatinine 04/17/16 04/17/16 04/17/16 05:41 08:37 11:46 WBC RBC Hgb Hct MCV MCH MCHC RDW Plt Count Lymph % (Auto) [place] % (Auto) Lymph # [place] # Baso # Seg Neutrophils % Seg Neuts % (Manual) Lymphocytes % (Manual) Seg Neutrophils # Seg Neutrophils # Man Lymphocytes # (Manual) Monocytes # (Manual) PT 17.4 H INR 1.43 H APTT Heparin Anti-Xa Level POC ABG pH POC ABG pCO2 POC ABG pO2 Sodium Potassium Chloride Carbon Dioxide BUN Creatinine Glucose POC Glucose 154 H 138 H Calcium Phosphorus Lactate Dehydrogenase Total Creatine Kinase NT-Pro-B Natriuret Pep Albumin [id number] Aeiiy-5-Nttewwssm Beta Globulins PEP Interpretation Cholesterol LDL Cholesterol Direct Urine Creatinine 04/17/16 04/17/16 04/17/16 12:17 12:17 21:20 WBC 16.5 H RBC 3.31 L Hgb 8.8 L Hct 26.9 L MCV 81 L MCH 27 L MCHC RDW 15.5 H Plt Count Lymph % (Auto) [place] % (Auto) Lymph # [place] # Baso # Seg Neutrophils % Seg Neuts % (Manual) Lymphocytes % (Manual) 3.0 L Seg Neutrophils # Seg Neutrophils # Man 10.1 H Lymphocytes # (Manual) 0.5 L Monocytes # (Manual) PT INR APTT Heparin Anti-Xa Level 0.14 L POC ABG pH POC ABG pCO2 POC ABG pO2 Sodium Potassium Chloride Carbon Dioxide 21 L BUN 38 H Creatinine 1.8 H D Glucose 131 H POC Glucose Calcium 7.6 L Phosphorus Lactate Dehydrogenase Total Creatine Kinase NT-Pro-B Natriuret Pep Albumin Yamte-1-Fhxuzgvak Lxqdz-8-Uosmxorhk Beta Globulins PEP Interpretation Cholesterol LDL Cholesterol Direct Urine Creatinine 04/17/16 04/17/16 04/18/16 23:38 23:41 00:21 WBC RBC Hgb Hct MCV MCH MCHC RDW Plt Count Lymph % (Auto) [place] % (Auto) Lymph # [place] # Baso # Seg Neutrophils % Seg Neuts % (Manual) Lymphocytes % (Manual) Seg Neutrophils # Seg Neutrophils # Man Lymphocytes # (Manual) Monocytes # (Manual) PT INR APTT Heparin Anti-Xa Level POC ABG pH POC ABG pCO2 POC ABG pO2 Sodium Potassium Chloride Carbon Dioxide BUN Creatinine Glucose POC Glucose < 40 L < 40 L 223 H Calcium Phosphorus Lactate Dehydrogenase Total Creatine Kinase NT-Pro-B Natriuret Pep Albumin Fuwvn-1-Qracnjcvk Cdjtz-0-Jkuzvxcww Beta Globulins PEP Interpretation Cholesterol LDL Cholesterol Direct Urine Creatinine 04/18/16 04/18/16 04/18/16 05:01 05:20 05:20 WBC 17.6 H RBC 3.44 L Hgb 9.1 L Hct 27.8 L MCV 81 L MCH 26 L MCHC RDW 15.5 H Plt Count Lymph % (Auto) 2.7 L [place] % (Auto) 8.3 H Lymph # 0.5 L [place] # 1.5 H Baso # Seg Neutrophils % 88.4 H Seg Neuts % (Manual) Lymphocytes % (Manual) Seg Neutrophils # 15.6 H Seg Neutrophils # Man Lymphocytes # (Manual) Monocytes # (Manual) PT 17.4 H INR 1.43 H APTT Heparin Anti-Xa Level POC ABG pH 7.528 H POC ABG pCO2 27.9 L POC ABG pO2 Sodium Potassium Chloride Carbon Dioxide BUN Creatinine Glucose POC Glucose Calcium Phosphorus Lactate Dehydrogenase Total Creatine Kinase NT-Pro-B Natriuret Pep Albumin Zyztv-0-Yyperyonx Mdnqo-7-Sdidxwktr Beta Globulins PEP Interpretation Cholesterol LDL Cholesterol Direct Urine Creatinine 04/18/16 04/18/16 04/18/16 05:20 05:31 06:50 WBC RBC Hgb Hct MCV MCH MCHC RDW Plt Count Lymph % (Auto) [place] % (Auto) Lymph # [place] # Baso # Seg Neutrophils % Seg Neuts % (Manual) Lymphocytes % (Manual) Seg Neutrophils # Seg Neutrophils # Man Lymphocytes # (Manual) Monocytes # (Manual) PT INR APTT Heparin Anti-Xa Level POC ABG pH POC ABG pCO2 POC ABG pO2 Sodium Potassium 3.4 L Chloride Carbon Dioxide 21 L BUN 22 H Creatinine Glucose POC Glucose 61 L 124 H Calcium 8.0 L Phosphorus Lactate Dehydrogenase Total Creatine Kinase NT-Pro-B Natriuret Pep Albumin Vwhde-5-Nkmgiypig Xikkv-7-Vijyzhgzd Beta Globulins PEP Interpretation Cholesterol LDL Cholesterol Direct Urine Creatinine 04/18/16 04/18/16 04/19/16 17:42 22:40 00:31 WBC RBC Hgb Hct MCV MCH MCHC RDW Plt Count Lymph % (Auto) [place] % (Auto) Lymph # [place] # Baso # Seg Neutrophils % Seg Neuts % (Manual) Lymphocytes % (Manual) Seg Neutrophils # Seg Neutrophils # Man Lymphocytes # (Manual) Monocytes # (Manual) PT INR APTT Heparin Anti-Xa Level < 0.10 L POC ABG pH POC ABG pCO2 POC ABG pO2 Sodium Potassium Chloride Carbon Dioxide BUN Creatinine Glucose POC Glucose 159 H 134 H Calcium Phosphorus Lactate Dehydrogenase Total Creatine Kinase NT-Pro-B Natriuret Pep Albumin Cuish-1-Lswfziytj Nvsyk-1-Byqemoxkn Beta Globulins PEP Interpretation Cholesterol LDL Cholesterol Direct Urine Creatinine 04/19/16 04/19/16 04/19/16 04:18 04:18 04:25 WBC 19.0 H RBC 3.58 L Hgb 9.3 L Hct 28.8 L MCV 80 L MCH 26 L MCHC RDW 15.5 H Plt Count Lymph % (Auto) 2.8 L [place] % (Auto) 7.4 H Lymph # 0.5 L [place] # 1.4 H Baso # Seg Neutrophils % 89.4 H Seg Neuts % (Manual) Lymphocytes % (Manual) Seg Neutrophils # 17.0 H Seg Neutrophils # Man Lymphocytes # (Manual) Monocytes # (Manual) PT INR APTT Heparin Anti-Xa Level POC ABG pH 7.527 H POC ABG pCO2 27.1 L POC ABG pO2 Sodium Potassium Chloride Carbon Dioxide BUN 22 H Creatinine Glucose 215 H POC Glucose Calcium 8.0 L Phosphorus Lactate Dehydrogenase Total Creatine Kinase NT-Pro-B Natriuret Pep Albumin Pxxcy-0-Vqkwinewq Ybtxh-1-Itpssqtsj Beta Globulins PEP Interpretation Cholesterol LDL Cholesterol Direct Urine Creatinine 04/19/16 04/19/16 04/19/16 05:45 08:10 14:08 WBC RBC Hgb Hct MCV MCH MCHC RDW Plt Count Lymph % (Auto) [place] % (Auto) Lymph # [place] # Baso # Seg Neutrophils % Seg Neuts % (Manual) Lymphocytes % (Manual) Seg Neutrophils # Seg Neutrophils # Man Lymphocytes # (Manual) Monocytes # (Manual) PT 22.1 H INR 1.93 H APTT Heparin Anti-Xa Level 0.17 L POC ABG pH POC ABG pCO2 POC ABG pO2 Sodium Potassium Chloride Carbon Dioxide BUN Creatinine Glucose POC Glucose 196 H 318 H Calcium Phosphorus Lactate Dehydrogenase Total Creatine Kinase NT-Pro-B Natriuret Pep Albumin Kjifb-8-Aqgehdlgb Fhgvn-7-Gqiqotgnb Beta Globulins PEP Interpretation Cholesterol LDL Cholesterol Direct Urine Creatinine 04/19/16 04/20/16 04/20/16 17:27 03:55 03:55 WBC 18.5 H RBC 3.19 L Hgb 8.4 L Hct 25.7 L MCV 80 L MCH 26 L MCHC RDW 15.9 H Plt Count Lymph % (Auto) 4.3 L [place] % (Auto) 10.1 H Lymph # 0.8 L [place] # 1.9 H Baso # Seg Neutrophils % 85.2 H Seg Neuts % (Manual) Lymphocytes % (Manual) Seg Neutrophils # 15.8 H Seg Neutrophils # Man Lymphocytes # (Manual) Monocytes # (Manual) PT 22.0 H INR 1.92 H APTT Heparin Anti-Xa Level 0.14 L POC ABG pH POC ABG pCO2 POC ABG pO2 Sodium Potassium Chloride Carbon Dioxide BUN Creatinine Glucose POC Glucose 230 H Calcium Phosphorus Lactate Dehydrogenase Total Creatine Kinase NT-Pro-B Natriuret Pep Albumin Sugwe-8-Huzitiwyw Eqgaw-7-Bihygjxoz Beta Globulins PEP Interpretation Cholesterol LDL Cholesterol Direct Urine Creatinine 04/20/16 04/20/16 04/20/16 03:55 04:16 05:52 WBC RBC Hgb Hct MCV MCH MCHC RDW Plt Count Lymph % (Auto) [place] % (Auto) Lymph # [place] # Baso # Seg Neutrophils % Seg Neuts % (Manual) Lymphocytes % (Manual) Seg Neutrophils # Seg Neutrophils # Man Lymphocytes # (Manual) Monocytes # (Manual) PT INR APTT Heparin Anti-Xa Level POC ABG pH 7.474 H POC ABG pCO2 26.5 L POC ABG pO2 Sodium Potassium Chloride Carbon Dioxide 18 L BUN 38 H Creatinine 2.7 H D Glucose 159 H POC Glucose 214 H Calcium 8.0 L Phosphorus Lactate Dehydrogenase Total Creatine Kinase NT-Pro-B Natriuret Pep Albumin Zgqgx-2-Fdywtgigu Hxebt-5-Yjlvfuvof Beta Globulins PEP Interpretation Cholesterol LDL Cholesterol Direct Urine Creatinine 04/20/16 04/20/16 04/20/16 10:32 11:27 11:50 WBC RBC Hgb Hct MCV MCH MCHC RDW Plt Count Lymph % (Auto) [place] % (Auto) Lymph # [place] # Baso # Seg Neutrophils % Seg Neuts % (Manual) Lymphocytes % (Manual) Seg Neutrophils # Seg Neutrophils # Man Lymphocytes # (Manual) Monocytes # (Manual) PT INR APTT Heparin Anti-Xa Level POC ABG pH POC ABG pCO2 POC ABG pO2 Sodium Potassium Chloride Carbon Dioxide 20 L BUN 45 H Creatinine 3.0 H Glucose 215 H POC Glucose 248 H Calcium 8.0 L Phosphorus Lactate Dehydrogenase Total Creatine Kinase NT-Pro-B Natriuret Pep Albumin Osolo-7-Ciaziiipu Baqka-7-Efkdpqmaf Beta Globulins PEP Interpretation Cholesterol LDL Cholesterol Direct Urine Creatinine 85.5 H 04/20/16 04/21/16 04/21/16 16:59 00:13 04:29 WBC RBC Hgb Hct MCV MCH MCHC RDW Plt Count Lymph % (Auto) [place] % (Auto) Lymph # [place] # Baso # Seg Neutrophils % Seg Neuts % (Manual) Lymphocytes % (Manual) Seg Neutrophils # Seg Neutrophils # Man Lymphocytes # (Manual) Monocytes # (Manual) PT 18.1 H INR 1.50 H APTT Heparin Anti-Xa Level 0.10 L POC ABG pH POC ABG pCO2 POC ABG pO2 Sodium Potassium Chloride Carbon Dioxide BUN Creatinine Glucose POC Glucose 312 H 287 H Calcium Phosphorus Lactate Dehydrogenase Total Creatine Kinase NT-Pro-B Natriuret Pep Albumin Xjwcq-6-Ifjwnixdk Lxpgr-6-Ejehwnwxo Beta Globulins PEP Interpretation Cholesterol LDL Cholesterol Direct Urine Creatinine 04/21/16 04/21/16 04/21/16 04:29 04:29 04:55 WBC 15.4 H RBC 3.24 L Hgb 8.4 L Hct 25.6 L MCV 79 L MCH 26 L MCHC RDW 16.1 H Plt Count Lymph % (Auto) 6.8 L [place] % (Auto) 12.9 H Lymph # 1.0 L [place] # 2.0 H Baso # Seg Neutrophils % 79.8 H Seg Neuts % (Manual) Lymphocytes % (Manual) Seg Neutrophils # 12.3 H Seg Neutrophils # Man Lymphocytes # (Manual) Monocytes # (Manual) PT INR APTT Heparin Anti-Xa Level POC ABG pH 7.512 H POC ABG pCO2 25.4 L POC ABG pO2 Sodium 135 L Potassium Chloride Carbon Dioxide 18 L BUN 57 H Creatinine 3.9 H Glucose 202 H POC Glucose Calcium 8.0 L Phosphorus Lactate Dehydrogenase Total Creatine Kinase NT-Pro-B Natriuret Pep Albumin Bsdfg-9-Shruqxlzg Jqlou-0-Vbivwaiex Beta Globulins PEP Interpretation Cholesterol LDL Cholesterol Direct Urine Creatinine 04/21/16 04/21/16 04/21/16 05:20 12:08 12:16 WBC RBC Hgb Hct MCV MCH MCHC RDW Plt Count Lymph % (Auto) [place] % (Auto) Lymph # [place] # Baso # Seg Neutrophils % Seg Neuts % (Manual) Lymphocytes % (Manual) Seg Neutrophils # Seg Neutrophils # Man Lymphocytes # (Manual) Monocytes # (Manual) PT INR APTT Heparin Anti-Xa Level 0.16 L POC ABG pH POC ABG pCO2 POC ABG pO2 Sodium Potassium Chloride Carbon Dioxide BUN Creatinine Glucose POC Glucose 203 H 221 H Calcium Phosphorus Lactate Dehydrogenase Total Creatine Kinase NT-Pro-B Natriuret Pep Albumin Tyuns-9-Xurrumchn Nadfo-0-Sjckdyrkm Beta Globulins PEP Interpretation Cholesterol LDL Cholesterol Direct Urine Creatinine 04/21/16 04/22/16 04/22/16 17:22 05:01 05:20 WBC RBC Hgb Hct MCV MCH MCHC RDW Plt Count Lymph % (Auto) [place] % (Auto) Lymph # [place] # Baso # Seg Neutrophils % Seg Neuts % (Manual) Lymphocytes % (Manual) Seg Neutrophils # Seg Neutrophils # Man Lymphocytes # (Manual) Monocytes # (Manual) PT 17.5 H INR 1.44 H APTT Heparin Anti-Xa Level POC ABG pH 7.460 H POC ABG pCO2 27.9 L POC ABG pO2 Sodium Potassium Chloride Carbon Dioxide BUN Creatinine Glucose POC Glucose 189 H Calcium Phosphorus Lactate Dehydrogenase Total Creatine Kinase NT-Pro-B Natriuret Pep Albumin Rqscj-5-Euuhkeltr Cljbm-7-Tsifamwca Beta Globulins PEP Interpretation Cholesterol LDL Cholesterol Direct Urine Creatinine 04/22/16 04/22/16 04/22/16 05:43 06:40 08:08 WBC RBC Hgb Hct MCV MCH MCHC RDW Plt Count Lymph % (Auto) [place] % (Auto) Lymph # [place] # Baso # Seg Neutrophils % Seg Neuts % (Manual) Lymphocytes % (Manual) Seg Neutrophils # Seg Neutrophils # Man Lymphocytes # (Manual) Monocytes # (Manual) PT INR APTT Heparin Anti-Xa Level POC ABG pH POC ABG pCO2 POC ABG pO2 Sodium Potassium Chloride Carbon Dioxide BUN Creatinine Glucose POC Glucose 56 L 136 H 134 H Calcium Phosphorus Lactate Dehydrogenase Total Creatine Kinase NT-Pro-B Natriuret Pep Albumin Ryjdo-6-Doznlxyge Fsahg-8-Hzhsqnkcn Beta Globulins PEP Interpretation Cholesterol LDL Cholesterol Direct Urine Creatinine 04/22/16 04/22/16 04/22/16 11:18 12:10 18:17 WBC RBC Hgb Hct MCV MCH MCHC RDW Plt Count Lymph % (Auto) [place] % (Auto) Lymph # [place] # Baso # Seg Neutrophils % Seg Neuts % (Manual) Lymphocytes % (Manual) Seg Neutrophils # Seg Neutrophils # Man Lymphocytes # (Manual) Monocytes # (Manual) PT INR APTT Heparin Anti-Xa Level 0.12 L POC ABG pH POC ABG pCO2 POC ABG pO2 Sodium Potassium Chloride Carbon Dioxide BUN Creatinine Glucose POC Glucose 142 H 227 H Calcium Phosphorus Lactate Dehydrogenase Total Creatine Kinase NT-Pro-B Natriuret Pep Albumin Ucrse-0-Piuilomeg Npjnd-5-Oflbouhcc Beta Globulins PEP Interpretation Cholesterol LDL Cholesterol Direct Urine Creatinine 04/22/16 04/22/16 04/23/16 22:28 23:47 04:49 WBC RBC Hgb Hct MCV MCH MCHC RDW Plt Count Lymph % (Auto) [place] % (Auto) Lymph # [place] # Baso # Seg Neutrophils % Seg Neuts % (Manual) Lymphocytes % (Manual) Seg Neutrophils # Seg Neutrophils # Man Lymphocytes # (Manual) Monocytes # (Manual) PT INR APTT Heparin Anti-Xa Level 0.16 L POC ABG pH POC ABG pCO2 32.6 L POC ABG pO2 122 H Sodium Potassium Chloride Carbon Dioxide BUN Creatinine Glucose POC Glucose 266 H Calcium Phosphorus Lactate Dehydrogenase Total Creatine Kinase NT-Pro-B Natriuret Pep Albumin Rlvqd-7-Iocegywnp Pdjfl-1-Yjsvuybir Beta Globulins PEP Interpretation Cholesterol LDL Cholesterol Direct Urine Creatinine 04/23/16 04/23/16 04/23/16 05:41 08:05 08:34 WBC RBC Hgb Hct MCV MCH MCHC RDW Plt Count Lymph % (Auto) [place] % (Auto) Lymph # [place] # Baso # Seg Neutrophils % Seg Neuts % (Manual) Lymphocytes % (Manual) Seg Neutrophils # Seg Neutrophils # Man Lymphocytes # (Manual) Monocytes # (Manual) PT INR APTT Heparin Anti-Xa Level POC ABG pH POC ABG pCO2 POC ABG pO2 Sodium Potassium Chloride 109.5 H Carbon Dioxide 21 L BUN 23 H Creatinine Glucose 227 H POC Glucose 227 H 224 H Calcium 8.2 L Phosphorus Lactate Dehydrogenase Total Creatine Kinase NT-Pro-B Natriuret Pep Albumin Xypab-7-Czuwovdlb Icguk-9-Vnmlnwaps Beta Globulins PEP Interpretation Cholesterol LDL Cholesterol Direct Urine Creatinine 04/23/16 04/23/16 04/23/16 10:45 11:37 22:49 WBC RBC Hgb Hct MCV MCH MCHC RDW Plt Count Lymph % (Auto) [place] % (Auto) Lymph # [place] # Baso # Seg Neutrophils % Seg Neuts % (Manual) Lymphocytes % (Manual) Seg Neutrophils # Seg Neutrophils # Man Lymphocytes # (Manual) Monocytes # (Manual) PT 15.9 H INR 1.28 H APTT Heparin Anti-Xa Level 0.12 L POC ABG pH POC ABG pCO2 POC ABG pO2 Sodium Potassium Chloride Carbon Dioxide BUN Creatinine Glucose POC Glucose 256 H Calcium Phosphorus Lactate Dehydrogenase Total Creatine Kinase NT-Pro-B Natriuret Pep Albumin Wqowd-1-Hufsgwiad Wdvgx-0-Lfmumtyee Beta Globulins PEP Interpretation Cholesterol LDL Cholesterol Direct Urine Creatinine 04/23/16 04/24/16 04/24/16 23:59 05:29 06:03 WBC RBC Hgb Hct MCV MCH MCHC RDW Plt Count Lymph % (Auto) [place] % (Auto) Lymph # [place] # Baso # Seg Neutrophils % Seg Neuts % (Manual) Lymphocytes % (Manual) Seg Neutrophils # Seg Neutrophils # Man Lymphocytes # (Manual) Monocytes # (Manual) PT INR APTT Heparin Anti-Xa Level POC ABG pH 7.464 H POC ABG pCO2 32.4 L POC ABG pO2 115 H Sodium Potassium Chloride Carbon Dioxide BUN Creatinine Glucose POC Glucose 176 H 256 H Calcium Phosphorus Lactate Dehydrogenase Total Creatine Kinase NT-Pro-B Natriuret Pep Albumin Emurx-6-Jmvlhnnro Jhsdx-6-Zrmnuhffj Beta Globulins PEP Interpretation Cholesterol LDL Cholesterol Direct Urine Creatinine 04/24/16 04/24/16 04/24/16 07:59 12:10 17:17 WBC RBC Hgb Hct MCV MCH MCHC RDW Plt Count Lymph % (Auto) [place] % (Auto) Lymph # [place] # Baso # Seg Neutrophils % Seg Neuts % (Manual) Lymphocytes % (Manual) Seg Neutrophils # Seg Neutrophils # Man Lymphocytes # (Manual) Monocytes # (Manual) PT INR APTT Heparin Anti-Xa Level 0.18 L POC ABG pH POC ABG pCO2 POC ABG pO2 Sodium Potassium Chloride Carbon Dioxide BUN Creatinine Glucose POC Glucose 304 H 325 H Calcium Phosphorus Lactate Dehydrogenase Total Creatine Kinase NT-Pro-B Natriuret Pep Albumin Yrnbc-5-Daztbzotk Gebvk-3-Moleyshtp Beta Globulins PEP Interpretation Cholesterol LDL Cholesterol Direct Urine Creatinine 04/25/16 04/25/16 04/25/16 00:52 06:40 06:44 WBC RBC Hgb Hct MCV MCH MCHC RDW Plt Count Lymph % (Auto) [place] % (Auto) Lymph # [place] # Baso # Seg Neutrophils % Seg Neuts % (Manual) Lymphocytes % (Manual) Seg Neutrophils # Seg Neutrophils # Man Lymphocytes # (Manual) Monocytes # (Manual) PT INR APTT Heparin Anti-Xa Level 0.11 L POC ABG pH POC ABG pCO2 POC ABG pO2 Sodium Potassium Chloride Carbon Dioxide BUN Creatinine Glucose POC Glucose 212 H 184 H Calcium Phosphorus Lactate Dehydrogenase Total Creatine Kinase NT-Pro-B Natriuret Pep Albumin Npkup-5-Jfszpkjqh Gkdot-9-Hakdkfsvn Beta Globulins PEP Interpretation Cholesterol LDL Cholesterol Direct Urine Creatinine 04/25/16 04/25/16 04/25/16 11:40 13:26 17:27 WBC RBC Hgb Hct MCV MCH MCHC RDW Plt Count Lymph % (Auto) [place] % (Auto) Lymph # [place] # Baso # Seg Neutrophils % Seg Neuts % (Manual) Lymphocytes % (Manual) Seg Neutrophils # Seg Neutrophils # Man Lymphocytes # (Manual) Monocytes # (Manual) PT INR APTT Heparin Anti-Xa Level 0.21 L POC ABG pH POC ABG pCO2 POC ABG pO2 Sodium Potassium Chloride Carbon Dioxide BUN Creatinine Glucose POC Glucose 206 H 204 H Calcium Phosphorus Lactate Dehydrogenase Total Creatine Kinase NT-Pro-B Natriuret Pep Albumin Yhtjr-3-Jotoucxow Jgmsx-6-Mdcyawisn Beta Globulins PEP Interpretation Cholesterol LDL Cholesterol Direct Urine Creatinine 04/25/16 04/26/16 04/26/16 23:46 06:31 11:51 WBC RBC Hgb Hct MCV MCH MCHC RDW Plt Count Lymph % (Auto) [place] % (Auto) Lymph # [place] # Baso # Seg Neutrophils % Seg Neuts % (Manual) Lymphocytes % (Manual) Seg Neutrophils # Seg Neutrophils # Man Lymphocytes # (Manual) Monocytes # (Manual) PT INR APTT Heparin Anti-Xa Level POC ABG pH POC ABG pCO2 POC ABG pO2 Sodium Potassium Chloride Carbon Dioxide BUN Creatinine Glucose POC Glucose 162 H 148 H 178 H Calcium Phosphorus Lactate Dehydrogenase Total Creatine Kinase NT-Pro-B Natriuret Pep Albumin Tqsvi-6-Flheiouqt Ofcqf-0-Vcjstpvth Beta Globulins PEP Interpretation Cholesterol LDL Cholesterol Direct Urine Creatinine 04/26/16 04/26/16 12:17 16:16 WBC RBC Hgb Hct MCV MCH MCHC RDW Plt Count Lymph % (Auto) [place] % (Auto) Lymph # [place] # Baso # Seg Neutrophils % Seg Neuts % (Manual) Lymphocytes % (Manual) Seg Neutrophils # Seg Neutrophils # Man Lymphocytes # (Manual) Monocytes # (Manual) PT INR APTT Heparin Anti-Xa Level POC ABG pH 7.513 H POC ABG pCO2 POC ABG pO2 76 L Sodium Potassium Chloride Carbon Dioxide BUN Creatinine Glucose POC Glucose 186 H Calcium Phosphorus Lactate Dehydrogenase Total Creatine Kinase NT-Pro-B Natriuret Pep Albumin Rnnbh-3-Gdkrtmwuq Zzztv-6-Vpflnxwzo Beta Globulins PEP Interpretation Cholesterol LDL Cholesterol Direct Urine Creatinine
[2016-04-27] MEDS: DUONEB 0.5 MG-3 MG/3 ML SOLN IH SCH ×5 (00:58→19:48)
[2016-04-27 05:00] LABS: Basophils % (Auto) 0.4 % (0.0-1.8); Eosinophils % (Auto) 1.7 % (0.0-4.3); Hemoglobin 7.8 gm/dl (11.8-15.2); Mean Corpuscular HGB Conc 32 % (32-34); Mean Corpuscular Hemoglobin 26 pg (28-32); Mean Corpuscular Volume 81 fl (84-94); Platelet Count 486 K/mm3 (140-440); Red Blood Count 2.99 M/mm3 (3.65-5.03); Red Cell Distribution Width 16.7 % (13.2-15.2); White Blood Count 13.1 K/mm3 (4.5-11.0)
[2016-04-27 05:22] LABS: Alanine Aminotransferase 39 units/L (7-56); Albumin/Globulin Ratio 0.5 %; Alkaline Phosphatase 103 units/L (35-129); BUN/Creatinine Ratio 28.33; Bilirubin,Total < 0.2 mg/dL (0.1-1.2); Blood Urea Nitrogen 17 mg/dL (9-20); Carbon Dioxide 27 mmol/L (22-30); Chloride 104.9 mmol/L (98-107); Glucose 187 mg/dL (75-100); Potassium 3.9 mmol/L (3.6-5.0); Sodium 141 mmol/L (137-145)
[2016-04-27 05:29] LABS: Anion Gap 13 mmol/L
[2016-04-27] MEDS: NOVOLOG SUB-Q SCH ×3 (05:50→12:00)
[2016-04-27] MEDS: NORMODYNE PO SCH ×2 (08:00→14:17)
--- NOTE | 2016-04-27 08:51 | Progress Note ---
Assessment and Plan Assessment and plan: 1. Acute respiratory failure. Patient reintubated on 04/17/16. Continue mechanical ventilation per pulmonary. Chest x-ray appears clear. Patient will need tracheostomy. Surgery consulted. We will hold Coumadin in anticipation for tracheostomy. Heparin drip for now. 2. Acute CVA. CT scan revealed acute ischemic infarct in the right cerebellum. MRI reveals subacute infarct in the right cerebellar hemisphere with associated edema and mass effect as previously described. Patient also with multiple areas of acute infarct in the left occipital and frontal lobes that are most likely embolic. LIZZIE done- No thrombus but decreased flow. Cardiology recommends anticoagulation with Coumadin. 3. Hypotension. Resolved. Patient currently off pressors of Levophed. There appears to be no evidence for sepsis or septic shock with the exception of leukocytosis. Patient has been afebrile, blood cultures negative and Lactic acid level normalized. However, tracheal aspirate revealed gram-negative rods. Echocardiogram revealed EF of 50-55%. 4. Encephalopathy. EEG normal. Etiology likely secondary to CVA +/- hypertension. 5. Group B strep UTI-treated 6. Accelerated hypertension. Continue antihypertensive medications 7. CAD-stable, 8. Seizures-continue Keppra. EEG normal. 9. Type 2 diabetes mellitus. Glycemic control. 10. History of aortic dissection status post repair. 11. History of prosthetic aortic valve replacement. Echo with normal function on 08/2015. 12. DVT prophylaxis-on heparin drip. 13. GI prophylaxis-Pepcid 14. Oropharyngeal dysphagia. Patient failed swallow evaluation. Status post PEG placement on 04/17. The high probability of a clinically significant, sudden or life threatening deterioration of the [respiratory and neurological] system(s) required my full and direct attention, intervention and personal management. The aggregate critical care time was [31] minutes. This time is in addition to time spent performing reported procedures but includes the following: [x] Data Review and interpretation [x] Patient assessment and monitoring of vital signs [x] Documentation [x] Medication orders and management History Interval history: 60 years old -[place] male with nonobstructive CAD per recent CAD, hypertension, hyperlipidemia, bioprosthetic aortic valve replacement, chronic kidney disease, diabetes and seizure disorder who was initially admitted for metabolic encephalopathy with hypernatremia. Patient developed respiratory failure during this hospitalization on 03/27 and was intubated placed on mechanical ventilation. Patient was later extubated during his hospitalization but was reintubated on the evening of 04/16/16. Patient now remains intubated on mechanical ventilation. Patient is also status post PEG tube placement on . Patient currently intubated and on heparin drip Hospitalist Physical - Constitutional Vitals: Temp Pulse Resp BP Pulse Ox 99.1 F 80 21 155/83 100 04/27/16 04:00 04/27/16 08:34 04/27/16 08:34 04/27/16 08:30 04/27/16 08:30 General appearance: Present: no acute distress, other (intubated) - EENT Eyes: Present: PERRL, EOM intact ENT: hearing intact, clear oral mucosa, dentition normal - Neck Neck: Present: supple, normal ROM - Respiratory Respiratory effort: normal Respiratory: bilateral: CTA - Cardiovascular Rhythm: regular Heart Sounds: Present: S1 & S2. Absent: gallop, rub - Extremities Extremities: no ischemia, No edema, Full ROM - Abdominal General gastrointestinal: soft, non-tender, non-distended, normal bowel sounds - Integumentary Integumentary: Present: clear, warm, dry - Neurologic Neurologic: CNII-XII intact, moves all extremities Results - Labs CBC & Chem 7: 04/27/16 04:21 04/27/16 04:21 Labs: Laboratory Last Values WBC 13.1 K/mm3 (4.5-11.0) H 04/27/16 04:21 RBC 2.99 M/mm3 (3.65-5.03) L 04/27/16 04:21 Hgb 7.8 gm/dl (11.8-15.2) L 04/27/16 04:21 Hct 24.0 % (35.5-45.6) L 04/27/16 04:21 MCV 81 fl (84-94) L 04/27/16 04:21 MCH 26 pg (28-32) L 04/27/16 04:21 MCHC 32 % (32-34) 04/27/16 04:21 RDW 16.7 % (13.2-15.2) H 04/27/16 04:21 Plt Count 486 K/mm3 (140-440) H 04/27/16 04:21 Lymph % (Auto) 12.5 % (13.4-35.0) L 04/27/16 04:21 [place] % (Auto) 7.9 % (0.0-7.3) H 04/27/16 04:21 Eos % (Auto) 1.7 % (0.0-4.3) 04/27/16 04:21 Baso % (Auto) 0.4 % (0.0-1.8) 04/27/16 04:21 Lymph # 1.6 K/mm3 (1.2-5.4) 04/27/16 04:21 [place] # 1.0 K/mm3 (0.0-0.8) H 04/27/16 04:21 Eos # 0.2 K/mm3 (0.0-0.4) 04/27/16 04:21 Baso # 0.1 K/mm3 (0.0-0.1) 04/27/16 04:21 Add Manual Diff Complete 04/17/16 12:17 Total Counted 100 04/17/16 12:17 Seg Neutrophils % 77.5 % (40.0-70.0) H 04/27/16 04:21 Seg Neuts % (Manual) 61.0 % (40.0-70.0) 04/17/16 12:17 Band Neutrophils % 27.0 % 04/17/16 12:17 Lymphocytes % (Manual) 3.0 % (13.4-35.0) L 04/17/16 12:17 Reactive Lymphs % (Man) 0 % 04/17/16 12:17 Monocytes % (Manual) 4.0 % (0.0-7.3) 04/17/16 12:17 Eosinophils % (Manual) 0 % (0.0-4.3) 04/17/16 12:17 Basophils % (Manual) 0 % (0.0-1.8) 04/17/16 12:17 Metamyelocytes % 1.0 % 04/17/16 12:17 Myelocytes % 1.0 % 04/17/16 12:17 Promyelocytes % 3.0 % 04/17/16 12:17 Blast Cells % 0 % 04/17/16 12:17 Nucleated RBC % Not Reportable 04/17/16 12:17 Seg Neutrophils # 10.2 K/mm3 (1.8-7.7) H 04/27/16 04:21 Seg Neutrophils # Man 10.1 K/mm3 (1.8-7.7) H 04/17/16 12:17 Band Neutrophils # 4.5 K/mm3 04/17/16 12:17 Lymphocytes # (Manual) 0.5 K/mm3 (1.2-5.4) L 04/17/16 12:17 Abs React Lymphs (Man) 0.0 K/mm3 04/17/16 12:17 Monocytes # (Manual) 0.7 K/mm3 (0.0-0.8) 04/17/16 12:17 Eosinophils # (Manual) 0.0 K/mm3 (0.0-0.4) 04/17/16 12:17 Basophils # (Manual) 0.0 K/mm3 (0.0-0.1) 04/17/16 12:17 Metamyelocytes # 0.2 K/mm3 04/17/16 12:17 Myelocytes # 0.2 K/mm3 04/17/16 12:17 Promyelocytes # 0.5 K/mm3 04/17/16 12:17 Blast Cells # 0.0 K/mm3 04/17/16 12:17 WBC Morphology Not Reportable 04/17/16 12:17 Hypersegmented Neuts Not Reportable 04/17/16 12:17 Hyposegmented Neuts Not Reportable 04/17/16 12:17 Hypogranular Neuts Not Reportable 04/17/16 12:17 Smudge Cells Not Reportable 04/17/16 12:17 Toxic Granulation Not Reportable 04/17/16 12:17 Toxic Vacuolation Not Reportable 04/17/16 12:17 Dohle Bodies Not Reportable 04/17/16 12:17 Pelger-Huet Anomaly Not Reportable 04/17/16 12:17 Corina Rods Not Reportable 04/17/16 12:17 Platelet Estimate Appears normal 04/17/16 12:17 Clumped Platelets Not Reportable 04/17/16 12:17 Plt Clumps, EDTA Not Reportable 04/17/16 12:17 Large Platelets Not Reportable 04/17/16 12:17 Giant Platelets Not Reportable 04/17/16 12:17 Platelet Satelliting Not Reportable 04/17/16 12:17 Plt Morphology Comment Not Reportable 04/17/16 12:17 RBC Morphology Not Reportable 04/17/16 12:17 Dimorphic RBCs Not Reportable 04/17/16 12:17 Polychromasia Few 04/17/16 12:17 Hypochromasia Not Reportable 04/17/16 12:17 Poikilocytosis Not Reportable 04/17/16 12:17 Anisocytosis 1+ 04/17/16 12:17 Microcytosis Few 04/17/16 12:17 Macrocytosis Not Reportable 04/17/16 12:17 Spherocytes Not Reportable 04/17/16 12:17 Pappenheimer Bodies Not Reportable 04/17/16 12:17 Sickle Cells Not Reportable 04/17/16 12:17 Target Cells Not Reportable 04/17/16 12:17 Tear Drop Cells Not Reportable 04/17/16 12:17 Ovalocytes Not Reportable 04/17/16 12:17 Helmet Cells Not Reportable 04/17/16 12:17 Mcgrath-[place]ata Bodies Not Reportable 04/17/16 12:17 [place] Rings Not Reportable 04/17/16 12:17 Tuan Cells Not Reportable 04/17/16 12:17 Bite Cells Not Reportable 04/17/16 12:17 Crenated Cell Not Reportable 04/17/16 12:17 Elliptocytes Not Reportable 04/17/16 12:17 Acanthocytes (Spur) Not Reportable 04/17/16 12:17 Rouleaux Not Reportable 04/17/16 12:17 Hemoglobin C Crystals Not Reportable 04/17/16 12:17 Schistocytes Not Reportable 04/17/16 12:17 Malaria parasites Not Reportable 04/17/16 12:17 Gideon Bodies Not Reportable 04/17/16 12:17 Hem Pathologist Commnt No 04/17/16 12:17 PT 15.9 Sec. (12.2-14.9) H 04/23/16 10:45 INR 1.28 (0.87-1.13) H 04/23/16 10:45 APTT 42.1 Sec. (24.2-36.6) H 04/04/16 09:55 Heparin Anti-Xa Level 0.22 U.I./ml (0.3-0.7) L 04/26/16 19:27 POC ABG pH 7.513 (7.35-7.45) H 04/26/16 12:17 POC ABG pCO2 35.9 (35-45) 04/26/16 12:17 POC ABG pO2 76 (80-105) L 04/26/16 12:17 POC ABG HCO3 28.9 04/26/16 12:17 POC ABG Total CO2 30 04/26/16 12:17 POC ABG O2 Sat 96 04/26/16 12:17 POC ABG Base Excess 6 04/26/16 12:17 VBG pH 7.418 (7.320-7.420) 03/24/16 14:00 FiO2 25 % 04/26/16 12:17 Sodium 141 mmol/L (137-145) 04/27/16 04:21 Potassium 3.9 mmol/L (3.6-5.0) 04/27/16 04:21 Chloride 104.9 mmol/L (98-107) 04/27/16 04:21 Carbon Dioxide 27 mmol/L (22-30) 04/27/16 04:21 Anion Gap 13 mmol/L 04/27/16 04:21 BUN 17 mg/dL (9-20) 04/27/16 04:21 Creatinine 0.6 mg/dL (0.8-1.5) L 04/27/16 04:21 Estimated GFR > 60 ml/min 04/27/16 04:21 BUN/Creatinine Ratio 28.33 % 04/27/16 04:21 Glucose 187 mg/dL (75-100) H 04/27/16 04:21 POC Glucose 192 (70-105) H 04/27/16 05:46 Hemoglobin A1c 9.6 % (4-6) H 03/24/16 14:00 Lactic Acid 1.6 mmol/L (0.7-2.0) 04/17/16 12:17 Calcium 8.0 mg/dL (8.4-10.2) L 04/27/16 04:21 Phosphorus 2.3 mg/dL (2.5-4.5) L D 03/30/16 04:00 Magnesium 1.9 mg/dL (1.7-2.3) 03/30/16 04:00 Total Bilirubin < 0.2 mg/dL (0.1-1.2) 04/27/16 04:21 AST 18 units/L (5-40) 04/27/16 04:21 ALT 39 units/L (7-56) 04/27/16 04:21 Alkaline Phosphatase 103 units/L (35-129) 04/27/16 04:21 Lactate Dehydrogenase 460 units/L (91-180) H 03/25/16 05:56 Total Creatine Kinase 356 units/L (55-170) H 03/28/16 13:29 Troponin T < 0.010 ng/mL (0.00-0.029) 03/28/16 13:29 NT-Pro-B Natriuret Pep 897.9 pg/mL (0-900) 04/03/16 04:10 Serum Total Protein 7.1 g/dL (6.1-8.1) 03/25/16 13:00 Total Protein 6.0 g/dL (6.3-8.2) L 04/27/16 04:21 Albumin 2.0 g/dL (3.9-5) L 04/27/16 04:21 Albumin/Globulin Ratio 0.5 % 04/27/16 04:21 [id number] See scanned report 03/31/16 12:20 [id number] See scanned report 03/31/16 12:20 Beta Globulins See scanned report 03/31/16 12:20 Hamn-2-Zuaxlzssyatso 2.46 mg/L (<=2.51) 03/25/16 13:00 Gamma Globulins See scanned report 03/31/16 12:20 Abnorm Protein Band 1 see below (()) 03/25/16 13:00 PEP Interpretation See scanned report 03/31/16 12:20 Triglycerides 88 mg/dL (2-149) 03/24/16 17:58 Cholesterol 221 mg/dL (50-199) H 03/24/16 17:58 LDL Cholesterol Direct 146 mg/dL (50-130) H 03/24/16 17:58 HDL Cholesterol 58 mg/dL (40-59) 03/24/16 17:58 Cholesterol/HDL Ratio 3.81 % 03/24/16 17:58 Urine Color Yellow (Yellow) 03/24/16 14:27 Urine Turbidity Clear (Clear) 03/24/16 14:27 Urine pH 5.0 (5.0-7.0) 03/24/16 14:27 Ur Specific [place] 1.017 (1.003-1.030) 03/24/16 14:27 Urine Protein <15 mg/dl mg/dL (Negative) 03/24/16 14:27 Urine Glucose (UA) >=500 mg/dL (Negative) 03/24/16 14:27 Urine Ketones Neg mg/dL (Negative) 03/24/16 14:27 Urine Blood Sm (Negative) 03/24/16 14:27 Urine Nitrite Neg (Negative) 03/24/16 14:27 Urine Bilirubin Neg (Negative) 03/24/16 14:27 Urine Urobilinogen < 2.0 mg/dL (<2.0) 03/24/16 14:27 Ur Leukocyte Esterase Neg (Negative) 03/24/16 14:27 Urine WBC (Auto) 2.0 /HPF (0.0-6.0) 03/24/16 14:27 Urine RBC (Auto) < 1.0 /HPF (0.0-6.0) 03/24/16 14:27 U Epithel Cells (Auto) 4.0 /HPF (0-13.0) 03/24/16 14:27 Hyaline Casts 1 /LPF 03/24/16 14:27 Urine Mucus Few /HPF 03/24/16 14:27 Ur Random Creatinine See scanned report 03/31/16 12:20 U Random Total Protein See scanned report 03/31/16 12:20 Urine Creatinine 85.5 mg/dL (0.1-20.0) H 04/20/16 11:50 Protein/Creatinin Ratio See scanned report 03/31/16 12:20 Urine Sodium 17 mEq/L 04/20/16 11:50 U Abnormal Prot Band 1 See scanned report 03/31/16 12:20 U Abnormal Prot Band 2 See scanned report 03/31/16 12:20 U Abnormal Prot Band 3 See scanned report 03/31/16 12:20 Ketones 1.0 mg/dL (0.2-2.8) 03/24/16 14:00
--- NOTE | 2016-04-27 09:25 | Progress Note ---
Assessment and Plan Acute respiratory failure. Currently on ventilator support, pending tracheostomy. Tolerating daily SBP but unable to extubate Stroke.See MRI. AMS. No change at this point HTN Elevated INR. Hospitalist following, and he also tracheotomy Recommendations tracheotomy as scheduled Reassess for SBT, weaning status after tracheotomy completed LTAC placement Discussed in detail with RT, nursing staff. No family available at the bedside. CC time 31 min of [id number] interaction with the patient and coordination of care Subjective Date of service: 04/27/16 Principal diagnosis: CVA, acute respiratory failure Interval history: Intubated and nonresponsive but eyes open Objective Vital Signs - 12hr 04/26/16 04/26/16 04/26/16 21:30 21:31 22:00 Temperature Pulse Rate 72 72 72 Pulse Rate [ Anterior Bilateral Throughout] Pulse Rate [ From Monitor] Respiratory 24 25 H Rate Respiratory Rate [Anterior Bilateral Throughout] Blood Pressure 149/77 144/75 150/88 O2 Sat by Pulse 100 100 Oximetry 04/26/16 04/26/16 04/26/16 22:30 23:00 23:30 Temperature Pulse Rate 69 70 71 Pulse Rate [ Anterior Bilateral Throughout] Pulse Rate [ From Monitor] Respiratory 20 11 L 14 Rate Respiratory Rate [Anterior Bilateral Throughout] Blood Pressure 133/76 133/76 136/72 O2 Sat by Pulse 100 100 100 Oximetry 04/27/16 04/27/16 04/27/16 00:00 00:30 00:46 Temperature 98.8 F Pulse Rate 70 71 80 Pulse Rate [ Anterior Bilateral Throughout] Pulse Rate [ 77 From Monitor] Respiratory 12 11 L Rate Respiratory Rate [Anterior Bilateral Throughout] Blood Pressure 128/71 133/73 133/73 O2 Sat by Pulse 100 100 100 Oximetry 04/27/16 04/27/16 04/27/16 00:59 01:00 01:18 Temperature Pulse Rate 71 Pulse Rate [ 81 83 Anterior Bilateral Throughout] Pulse Rate [ From Monitor] Respiratory 13 Rate Respiratory 20 18 Rate [Anterior Bilateral Throughout] Blood Pressure 127/76 O2 Sat by Pulse 100 Oximetry 04/27/16 04/27/16 04/27/16 01:19 01:30 01:42 Temperature Pulse Rate 69 71 69 Pulse Rate [ Anterior Bilateral Throughout] Pulse Rate [ From Monitor] Respiratory 12 18 19 Rate Respiratory Rate [Anterior Bilateral Throughout] Blood Pressure 127/76 138/72 138/72 O2 Sat by Pulse 100 100 100 Oximetry 04/27/16 04/27/16 04/27/16 01:52 02:00 02:22 Temperature Pulse Rate 68 72 70 Pulse Rate [ Anterior Bilateral Throughout] Pulse Rate [ From Monitor] Respiratory 16 19 18 Rate Respiratory Rate [Anterior Bilateral Throughout] Blood Pressure 127/76 144/77 144/77 O2 Sat by Pulse 100 100 100 Oximetry 04/27/16 04/27/16 04/27/16 02:30 03:00 03:30 Temperature Pulse Rate 76 74 74 Pulse Rate [ Anterior Bilateral Throughout] Pulse Rate [ From Monitor] Respiratory 19 20 20 Rate Respiratory Rate [Anterior Bilateral Throughout] Blood Pressure 148/76 141/79 146/79 O2 Sat by Pulse 100 100 100 Oximetry 04/27/16 04/27/16 04/27/16 04:00 04:24 04:30 Temperature 99.1 F Pulse Rate 70 73 71 Pulse Rate [ Anterior Bilateral Throughout] Pulse Rate [ From Monitor] Respiratory 18 18 Rate Respiratory Rate [Anterior Bilateral Throughout] Blood Pressure 129/71 133/72 133/72 O2 Sat by Pulse 100 100 100 Oximetry 04/27/16 04/27/16 04/27/16 05:00 05:30 06:00 Temperature Pulse Rate 70 71 70 Pulse Rate [ Anterior Bilateral Throughout] Pulse Rate [ From Monitor] Respiratory 20 19 18 Rate Respiratory Rate [Anterior Bilateral Throughout] Blood Pressure 140/76 142/74 144/77 O2 Sat by Pulse 100 100 100 Oximetry 04/27/16 04/27/16 04/27/16 06:30 07:00 07:30 Temperature Pulse Rate 70 70 69 Pulse Rate [ Anterior Bilateral Throughout] Pulse Rate [ From Monitor] Respiratory 18 19 17 Rate Respiratory Rate [Anterior Bilateral Throughout] Blood Pressure 132/72 136/72 137/72 O2 Sat by Pulse 99 100 98 Oximetry 04/27/16 04/27/16 04/27/16 08:30 08:34 08:55 Temperature Pulse Rate 75 Pulse Rate [ 80 76 Anterior Bilateral Throughout] Pulse Rate [ From Monitor] Respiratory Rate Respiratory 21 13 Rate [Anterior Bilateral Throughout] Blood Pressure 155/83 O2 Sat by Pulse 100 Oximetry 04/27/16 09:01 Temperature Pulse Rate 76 Pulse Rate [ Anterior Bilateral Throughout] Pulse Rate [ From Monitor] Respiratory 26 H Rate Respiratory Rate [Anterior Bilateral Throughout] Blood Pressure 154/85 O2 Sat by Pulse 99 Oximetry Constitutional: no acute distress Eyes: non-icteric ENT: other (orally intubated ) Neck: supple Effort: normal Ascultation: Bilateral: clear, rhonchi (occasional) Percussion: Bilateral: not dull Cardiovascular: regular rate and rhythm Gastrointestinal: normoactive bowel sounds, soft, non-tender Extremities: no cyanosis, no edema Neurologic: other (GCS 4) CBC and BMP: 04/27/16 04:21 04/27/16 04:21 ABG, PT/INR, D-dimer: ABG POC ABG pH 7.513 (7.35-7.45) H 04/26/16 12:17 POC ABG pCO2 35.9 (35-45) 04/26/16 12:17 POC ABG pO2 76 (80-105) L 04/26/16 12:17 POC ABG HCO3 28.9 04/26/16 12:17 POC ABG Total CO2 30 04/26/16 12:17 POC ABG O2 Sat 96 04/26/16 12:17 PT/INR, D-dimer PT 15.9 Sec. (12.2-14.9) H 04/23/16 10:45 INR 1.28 (0.87-1.13) H 04/23/16 10:45 Abnormal lab findings: Abnormal Labs 03/24/16 03/24/16 03/24/16 17:58 20:25 23:23 WBC RBC Hgb Hct MCV MCH MCHC RDW Plt Count Lymph % (Auto) Carbon % (Auto) Lymph # Carbon # Baso # Seg Neutrophils % Seg Neuts % (Manual) Lymphocytes % (Manual) Seg Neutrophils # Seg Neutrophils # Man Lymphocytes # (Manual) Monocytes # (Manual) PT INR APTT Heparin Anti-Xa Level POC ABG pH POC ABG pCO2 POC ABG pO2 Sodium 169 H* Potassium 3.5 L Chloride 130.3 H Carbon Dioxide BUN 28 H Creatinine 1.8 H Glucose POC Glucose 112 H Calcium Phosphorus Lactate Dehydrogenase Total Creatine Kinase NT-Pro-B Natriuret Pep Total Protein Albumin Ejfhw-0-Gtxxbigut Puhue-6-Wubfzxpcl Beta Globulins PEP Interpretation Cholesterol 221 H LDL Cholesterol Direct 146 H Urine Creatinine 03/25/16 03/25/16 03/25/16 05:56 05:56 05:56 WBC 21.3 H RBC 6.32 H Hgb 16.7 H Hct 52.7 H MCV 83 L MCH 27 L MCHC RDW Plt Count Lymph % (Auto) Carbon % (Auto) Lymph # Carbon # Baso # Seg Neutrophils % Seg Neuts % (Manual) 91.0 H Lymphocytes % (Manual) 4.0 L Seg Neutrophils # Seg Neutrophils # Man 19.4 H Lymphocytes # (Manual) 0.9 L Monocytes # (Manual) 0.9 H PT INR APTT Heparin Anti-Xa Level POC ABG pH POC ABG pCO2 POC ABG pO2 Sodium 172 H* Potassium 3.5 L Chloride 130.4 H Carbon Dioxide BUN 29 H Creatinine 1.8 H Glucose 187 H POC Glucose Calcium Phosphorus Lactate Dehydrogenase 460 H Total Creatine Kinase NT-Pro-B Natriuret Pep Total Protein Albumin Ijrjc-5-Awhslsxny Czjeu-5-Trsxsgdbg Beta Globulins PEP Interpretation Cholesterol LDL Cholesterol Direct Urine Creatinine 03/25/16 03/25/16 03/25/16 07:55 12:19 13:00 WBC RBC Hgb Hct MCV MCH MCHC RDW Plt Count Lymph % (Auto) Carbon % (Auto) Lymph # Carbon # Baso # Seg Neutrophils % Seg Neuts % (Manual) Lymphocytes % (Manual) Seg Neutrophils # Seg Neutrophils # Man Lymphocytes # (Manual) Monocytes # (Manual) PT INR APTT Heparin Anti-Xa Level POC ABG pH POC ABG pCO2 POC ABG pO2 Sodium Potassium Chloride Carbon Dioxide BUN Creatinine Glucose POC Glucose 231 H 314 H Calcium Phosphorus Lactate Dehydrogenase Total Creatine Kinase NT-Pro-B Natriuret Pep Total Protein Albumin 3.4 L Rrbwz-8-Pydzlmywx 0.4 H Jwrle-6-Igpbyhjlj 1.1 H Beta Globulins 0.6 H PEP Interpretation see below H Cholesterol LDL Cholesterol Direct Urine Creatinine 03/25/16 03/25/16 03/26/16 16:41 22:45 08:32 WBC RBC Hgb Hct MCV MCH MCHC RDW Plt Count Lymph % (Auto) Carbon % (Auto) Lymph # Carbon # Baso # Seg Neutrophils % Seg Neuts % (Manual) Lymphocytes % (Manual) Seg Neutrophils # Seg Neutrophils # Man Lymphocytes # (Manual) Monocytes # (Manual) PT INR APTT Heparin Anti-Xa Level POC ABG pH POC ABG pCO2 POC ABG pO2 Sodium Potassium Chloride Carbon Dioxide BUN Creatinine Glucose POC Glucose 444 H 326 H 360 H Calcium Phosphorus Lactate Dehydrogenase Total Creatine Kinase NT-Pro-B Natriuret Pep Total Protein Albumin Ukboi-6-Hqpeikrvr Piwjk-8-Limumjpdv Beta Globulins PEP Interpretation Cholesterol LDL Cholesterol Direct Urine Creatinine 03/26/16 03/26/16 03/26/16 12:38 15:33 15:47 WBC RBC Hgb Hct MCV MCH MCHC RDW Plt Count Lymph % (Auto) Carbon % (Auto) Lymph # Carbon # Baso # Seg Neutrophils % Seg Neuts % (Manual) Lymphocytes % (Manual) Seg Neutrophils # Seg Neutrophils # Man Lymphocytes # (Manual) Monocytes # (Manual) PT INR APTT Heparin Anti-Xa Level POC ABG pH 7.511 H POC ABG pCO2 26.5 L POC ABG pO2 70 L Sodium Potassium Chloride Carbon Dioxide BUN Creatinine Glucose POC Glucose 280 H 174 H Calcium Phosphorus Lactate Dehydrogenase Total Creatine Kinase NT-Pro-B Natriuret Pep Total Protein Albumin Xvlgl-9-Ddnsgpleq Rwwor-9-Ketlagtmr Beta Globulins PEP Interpretation Cholesterol LDL Cholesterol Direct Urine Creatinine 03/26/16 03/26/16 03/26/16 16:47 16:47 18:51 WBC 14.0 H RBC 5.17 H Hgb Hct MCV MCH 26 L MCHC 31 L RDW Plt Count 139 L Lymph % (Auto) Carbon % (Auto) Lymph # Carbon # Baso # Seg Neutrophils % Seg Neuts % (Manual) Lymphocytes % (Manual) Seg Neutrophils # Seg Neutrophils # Man Lymphocytes # (Manual) Monocytes # (Manual) PT INR APTT Heparin Anti-Xa Level POC ABG pH POC ABG pCO2 33.9 L POC ABG pO2 150 H Sodium 164 H* Potassium 3.4 L Chloride 128.5 H Carbon Dioxide BUN 30 H Creatinine 2.2 H Glucose 121 H POC Glucose Calcium 8.1 L Phosphorus Lactate Dehydrogenase Total Creatine Kinase NT-Pro-B Natriuret Pep Total Protein Albumin Xqrgd-6-Ktuvgdxeh Xrasv-7-Uexezlwmo Beta Globulins PEP Interpretation Cholesterol LDL Cholesterol Direct Urine Creatinine 03/27/16 03/27/16 03/27/16 02:19 05:47 06:02 WBC RBC Hgb Hct MCV MCH MCHC RDW Plt Count Lymph % (Auto) Carbon % (Auto) Lymph # Carbon # Baso # Seg Neutrophils % Seg Neuts % (Manual) Lymphocytes % (Manual) Seg Neutrophils # Seg Neutrophils # Man Lymphocytes # (Manual) Monocytes # (Manual) PT INR APTT Heparin Anti-Xa Level POC ABG pH POC ABG pCO2 27.3 L 30.3 L POC ABG pO2 50 L 112 H Sodium 158 H Potassium Chloride 126.7 H Carbon Dioxide 20 L BUN 25 H Creatinine 1.7 H Glucose POC Glucose Calcium 7.0 L Phosphorus Lactate Dehydrogenase Total Creatine Kinase NT-Pro-B Natriuret Pep Total Protein Albumin Nltcw-4-Tluvkpcgs Oecgu-5-Xnqqlniph Beta Globulins PEP Interpretation Cholesterol LDL Cholesterol Direct Urine Creatinine 03/27/16 03/27/16 03/27/16 07:51 09:20 11:45 WBC 14.2 H RBC Hgb Hct MCV 83 L MCH 27 L MCHC RDW Plt Count 113 L Lymph % (Auto) Carbon % (Auto) Lymph # Carbon # Baso # Seg Neutrophils % Seg Neuts % (Manual) Lymphocytes % (Manual) Seg Neutrophils # Seg Neutrophils # Man Lymphocytes # (Manual) Monocytes # (Manual) PT INR APTT Heparin Anti-Xa Level POC ABG pH POC ABG pCO2 POC ABG pO2 Sodium Potassium Chloride Carbon Dioxide BUN Creatinine Glucose POC Glucose 124 H 241 H Calcium Phosphorus Lactate Dehydrogenase Total Creatine Kinase NT-Pro-B Natriuret Pep Total Protein Albumin Jskpi-7-Enxzoywkf Zbyow-9-Yfpryfcin Beta Globulins PEP Interpretation Cholesterol LDL Cholesterol Direct Urine Creatinine 03/27/16 03/27/16 03/28/16 16:39 22:03 03:29 WBC RBC Hgb Hct MCV MCH MCHC RDW Plt Count Lymph % (Auto) Carbon % (Auto) Lymph # Carbon # Baso # Seg Neutrophils % Seg Neuts % (Manual) Lymphocytes % (Manual) Seg Neutrophils # Seg Neutrophils # Man Lymphocytes # (Manual) Monocytes # (Manual) PT INR APTT Heparin Anti-Xa Level POC ABG pH POC ABG pCO2 POC ABG pO2 Sodium Potassium Chloride Carbon Dioxide BUN Creatinine Glucose POC Glucose 266 H 167 H 241 H Calcium Phosphorus Lactate Dehydrogenase Total Creatine Kinase NT-Pro-B Natriuret Pep Total Protein Albumin Forri-0-Crnnfvzzo Axpfa-6-Bslouyrpe Beta Globulins PEP Interpretation Cholesterol LDL Cholesterol Direct Urine Creatinine 03/28/16 03/28/16 03/28/16 05:00 05:00 05:00 WBC RBC Hgb Hct MCV 83 L MCH 27 L MCHC RDW Plt Count 106 L Lymph % (Auto) Carbon % (Auto) 10.1 H Lymph # Carbon # 1.0 H Baso # Seg Neutrophils % 75.1 H Seg Neuts % (Manual) Lymphocytes % (Manual) Seg Neutrophils # Seg Neutrophils # Man Lymphocytes # (Manual) Monocytes # (Manual) PT INR APTT Heparin Anti-Xa Level POC ABG pH POC ABG pCO2 POC ABG pO2 Sodium 147 H D Potassium 3.1 L D Chloride 112.3 H Carbon Dioxide 21 L BUN Creatinine Glucose 208 H POC Glucose Calcium 7.0 L Phosphorus 2.2 L Lactate Dehydrogenase Total Creatine Kinase NT-Pro-B Natriuret Pep Total Protein Albumin Inclo-7-Kviwzvgok Bedhj-8-Rizwzorsm Beta Globulins PEP Interpretation Cholesterol LDL Cholesterol Direct Urine Creatinine 03/28/16 03/28/16 03/28/16 05:14 08:41 10:56 WBC RBC Hgb Hct MCV MCH MCHC RDW Plt Count Lymph % (Auto) Carbon % (Auto) Lymph # Carbon # Baso # Seg Neutrophils % Seg Neuts % (Manual) Lymphocytes % (Manual) Seg Neutrophils # Seg Neutrophils # Man Lymphocytes # (Manual) Monocytes # (Manual) PT INR APTT Heparin Anti-Xa Level POC ABG pH 7.457 H POC ABG pCO2 29.7 L 27.7 L POC ABG pO2 Sodium Potassium Chloride Carbon Dioxide BUN Creatinine Glucose POC Glucose 228 H Calcium Phosphorus Lactate Dehydrogenase Total Creatine Kinase NT-Pro-B Natriuret Pep Total Protein Albumin Slmke-2-Gyxvvbccu Bzufs-8-Eikvglvqm Beta Globulins PEP Interpretation Cholesterol LDL Cholesterol Direct Urine Creatinine 03/28/16 03/28/16 03/28/16 11:37 13:29 16:22 WBC RBC Hgb Hct MCV MCH MCHC RDW Plt Count Lymph % (Auto) Carbon % (Auto) Lymph # Carbon # Baso # Seg Neutrophils % Seg Neuts % (Manual) Lymphocytes % (Manual) Seg Neutrophils # Seg Neutrophils # Man Lymphocytes # (Manual) Monocytes # (Manual) PT INR APTT Heparin Anti-Xa Level POC ABG pH POC ABG pCO2 POC ABG pO2 Sodium Potassium Chloride Carbon Dioxide BUN Creatinine Glucose POC Glucose 226 H 200 H Calcium Phosphorus Lactate Dehydrogenase Total Creatine Kinase 356 H NT-Pro-B Natriuret Pep Total Protein Albumin Bttua-7-Pwroftujg Vlwit-2-Pcdqrywyz Beta Globulins PEP Interpretation Cholesterol LDL Cholesterol Direct Urine Creatinine 03/28/16 03/29/16 03/29/16 21:48 04:50 04:50 WBC RBC Hgb 11.5 L Hct 35.3 L MCV 81 L MCH 26 L MCHC RDW Plt Count 97 L Lymph % (Auto) Carbon % (Auto) 11.7 H Lymph # Carbon # 1.1 H Baso # Seg Neutrophils % Seg Neuts % (Manual) Lymphocytes % (Manual) Seg Neutrophils # Seg Neutrophils # Man Lymphocytes # (Manual) Monocytes # (Manual) PT INR APTT Heparin Anti-Xa Level POC ABG pH POC ABG pCO2 POC ABG pO2 Sodium 136 L D Potassium 3.3 L Chloride Carbon Dioxide 20 L BUN Creatinine Glucose 386 H POC Glucose 188 H Calcium 6.8 L Phosphorus 1.6 L D Lactate Dehydrogenase Total Creatine Kinase NT-Pro-B Natriuret Pep Total Protein Albumin Llpwp-8-Kxukuaqiy Rbngv-3-Tbqgotdew Beta Globulins PEP Interpretation Cholesterol LDL Cholesterol Direct Urine Creatinine 03/29/16 03/29/16 03/29/16 08:10 11:12 16:09 WBC RBC Hgb Hct MCV MCH MCHC RDW Plt Count Lymph % (Auto) Carbon % (Auto) Lymph # Carbon # Baso # Seg Neutrophils % Seg Neuts % (Manual) Lymphocytes % (Manual) Seg Neutrophils # Seg Neutrophils # Man Lymphocytes # (Manual) Monocytes # (Manual) PT INR APTT Heparin Anti-Xa Level POC ABG pH POC ABG pCO2 POC ABG pO2 Sodium Potassium Chloride Carbon Dioxide BUN Creatinine Glucose POC Glucose 230 H 180 H 46 L Calcium Phosphorus Lactate Dehydrogenase Total Creatine Kinase NT-Pro-B Natriuret Pep Total Protein Albumin Nysst-1-Yhfobomdn Umyvo-8-Wyszcxrsp Beta Globulins PEP Interpretation Cholesterol LDL Cholesterol Direct Urine Creatinine 03/29/16 03/29/16 03/30/16 16:12 18:15 02:53 WBC RBC Hgb Hct MCV MCH MCHC RDW Plt Count Lymph % (Auto) Carbon % (Auto) Lymph # Carbon # Baso # Seg Neutrophils % Seg Neuts % (Manual) Lymphocytes % (Manual) Seg Neutrophils # Seg Neutrophils # Man Lymphocytes # (Manual) Monocytes # (Manual) PT INR APTT Heparin Anti-Xa Level POC ABG pH POC ABG pCO2 POC ABG pO2 Sodium Potassium Chloride Carbon Dioxide BUN Creatinine Glucose POC Glucose 52 L 118 H 130 H Calcium Phosphorus Lactate Dehydrogenase Total Creatine Kinase NT-Pro-B Natriuret Pep Total Protein Albumin Qceor-5-Phoivhsyr Czvqr-8-Snxghxfth Beta Globulins PEP Interpretation Cholesterol LDL Cholesterol Direct Urine Creatinine 03/30/16 03/30/16 03/30/16 04:00 04:00 05:29 WBC RBC Hgb Hct MCV 81 L MCH 26 L MCHC RDW Plt Count 116 L Lymph % (Auto) 10.8 L Carbon % (Auto) 13.1 H Lymph # 1.0 L Carbon # 1.3 H Baso # Seg Neutrophils % 74.2 H Seg Neuts % (Manual) Lymphocytes % (Manual) Seg Neutrophils # Seg Neutrophils # Man Lymphocytes # (Manual) Monocytes # (Manual) PT INR APTT Heparin Anti-Xa Level POC ABG pH 7.522 H POC ABG pCO2 22.7 L POC ABG pO2 137 H Sodium 147 H D Potassium Chloride 115.5 H Carbon Dioxide 20 L BUN Creatinine Glucose 116 H POC Glucose Calcium 7.6 L Phosphorus 2.3 L D Lactate Dehydrogenase Total Creatine Kinase NT-Pro-B Natriuret Pep Total Protein Albumin Kijdj-1-Rjlpqgpvf Bvuji-6-Gsmlacotc Beta Globulins PEP Interpretation Cholesterol LDL Cholesterol Direct Urine Creatinine 03/30/16 03/30/16 03/30/16 05:47 08:05 08:59 WBC RBC Hgb Hct MCV MCH MCHC RDW Plt Count Lymph % (Auto) Carbon % (Auto) Lymph # Carbon # Baso # Seg Neutrophils % Seg Neuts % (Manual) Lymphocytes % (Manual) Seg Neutrophils # Seg Neutrophils # Man Lymphocytes # (Manual) Monocytes # (Manual) PT INR APTT Heparin Anti-Xa Level POC ABG pH POC ABG pCO2 26.2 L POC ABG pO2 115 H Sodium Potassium Chloride Carbon Dioxide BUN Creatinine Glucose POC Glucose 138 H 171 H Calcium Phosphorus Lactate Dehydrogenase Total Creatine Kinase NT-Pro-B Natriuret Pep Total Protein Albumin Vazde-9-Awiazncpa Maqhc-2-Awxtpagzi Beta Globulins PEP Interpretation Cholesterol LDL Cholesterol Direct Urine Creatinine 03/30/16 03/30/16 03/30/16 12:11 12:11 16:39 WBC RBC Hgb Hct MCV MCH MCHC RDW Plt Count Lymph % (Auto) Carbon % (Auto) Lymph # Carbon # Baso # Seg Neutrophils % Seg Neuts % (Manual) Lymphocytes % (Manual) Seg Neutrophils # Seg Neutrophils # Man Lymphocytes # (Manual) Monocytes # (Manual) PT INR APTT Heparin Anti-Xa Level POC ABG pH 7.476 H POC ABG pCO2 29.0 L POC ABG pO2 Sodium Potassium Chloride Carbon Dioxide BUN Creatinine Glucose POC Glucose 142 H 59 L Calcium Phosphorus Lactate Dehydrogenase Total Creatine Kinase NT-Pro-B Natriuret Pep Total Protein Albumin Gzgwv-2-Urbnoevtx Jfgkn-6-Pzgvhqjsk Beta Globulins PEP Interpretation Cholesterol LDL Cholesterol Direct Urine Creatinine 03/30/16 03/30/16 03/31/16 18:41 21:59 05:02 WBC RBC Hgb Hct MCV MCH MCHC RDW Plt Count Lymph % (Auto) Carbon % (Auto) Lymph # Carbon # Baso # Seg Neutrophils % Seg Neuts % (Manual) Lymphocytes % (Manual) Seg Neutrophils # Seg Neutrophils # Man Lymphocytes # (Manual) Monocytes # (Manual) PT INR APTT Heparin Anti-Xa Level POC ABG pH 7.519 H POC ABG pCO2 21.8 L POC ABG pO2 142 H Sodium Potassium Chloride Carbon Dioxide BUN Creatinine Glucose POC Glucose 145 H 154 H Calcium Phosphorus Lactate Dehydrogenase Total Creatine Kinase NT-Pro-B Natriuret Pep Total Protein Albumin Itzhp-2-Nbhwdhkgx Xqqxy-7-Jqtdpqaxy Beta Globulins PEP Interpretation Cholesterol LDL Cholesterol Direct Urine Creatinine 03/31/16 03/31/16 03/31/16 05:15 05:15 05:15 WBC 13.4 H RBC 5.21 H Hgb Hct MCV 81 L MCH 26 L MCHC RDW Plt Count Lymph % (Auto) 9.5 L Carbon % (Auto) 14.0 H Lymph # Carbon # 1.9 H Baso # Seg Neutrophils % 75.0 H Seg Neuts % (Manual) Lymphocytes % (Manual) Seg Neutrophils # 10.1 H Seg Neutrophils # Man Lymphocytes # (Manual) Monocytes # (Manual) PT INR APTT Heparin Anti-Xa Level POC ABG pH POC ABG pCO2 POC ABG pO2 Sodium Potassium Chloride 108.5 H Carbon Dioxide 19 L BUN Creatinine Glucose 188 H POC Glucose Calcium Phosphorus Lactate Dehydrogenase Total Creatine Kinase NT-Pro-B Natriuret Pep 1089 H Total Protein Albumin Ftclg-2-Zbvikezrj Akuyi-4-Ntuoqlrpb Beta Globulins PEP Interpretation Cholesterol LDL Cholesterol Direct Urine Creatinine 03/31/16 03/31/16 03/31/16 07:23 11:12 15:20 WBC RBC Hgb Hct MCV MCH MCHC RDW Plt Count Lymph % (Auto) Carbon % (Auto) Lymph # Carbon # Baso # Seg Neutrophils % Seg Neuts % (Manual) Lymphocytes % (Manual) Seg Neutrophils # Seg Neutrophils # Man Lymphocytes # (Manual) Monocytes # (Manual) PT INR APTT Heparin Anti-Xa Level POC ABG pH POC ABG pCO2 POC ABG pO2 Sodium Potassium Chloride Carbon Dioxide BUN Creatinine Glucose POC Glucose 233 H 228 H 208 H Calcium Phosphorus Lactate Dehydrogenase Total Creatine Kinase NT-Pro-B Natriuret Pep Total Protein Albumin Ximau-5-Ndpovlbfq Gjgkz-9-Zeojmcdpl Beta Globulins PEP Interpretation Cholesterol LDL Cholesterol Direct Urine Creatinine 03/31/16 04/01/16 04/01/16 21:27 04:41 05:35 WBC 12.1 H RBC Hgb Hct MCV 81 L MCH 26 L MCHC RDW Plt Count Lymph % (Auto) 8.5 L Carbon % (Auto) 14.0 H Lymph # 1.0 L Carbon # 1.7 H Baso # Seg Neutrophils % 76.2 H Seg Neuts % (Manual) Lymphocytes % (Manual) Seg Neutrophils # 9.2 H Seg Neutrophils # Man Lymphocytes # (Manual) Monocytes # (Manual) PT INR APTT Heparin Anti-Xa Level POC ABG pH 7.455 H POC ABG pCO2 31.0 L POC ABG pO2 Sodium Potassium Chloride Carbon Dioxide BUN Creatinine Glucose POC Glucose 162 H Calcium Phosphorus Lactate Dehydrogenase Total Creatine Kinase NT-Pro-B Natriuret Pep Total Protein Albumin Ojmmu-6-Dsjxhrmgy Uvqco-0-Nvgtfdxxc Beta Globulins PEP Interpretation Cholesterol LDL Cholesterol Direct Urine Creatinine 04/01/16 04/01/16 04/01/16 05:35 08:44 12:49 WBC RBC Hgb Hct MCV MCH MCHC RDW Plt Count Lymph % (Auto) Carbon % (Auto) Lymph # Carbon # Baso # Seg Neutrophils % Seg Neuts % (Manual) Lymphocytes % (Manual) Seg Neutrophils # Seg Neutrophils # Man Lymphocytes # (Manual) Monocytes # (Manual) PT INR APTT Heparin Anti-Xa Level POC ABG pH POC ABG pCO2 POC ABG pO2 Sodium Potassium Chloride Carbon Dioxide BUN Creatinine Glucose 256 H POC Glucose 257 H 279 H Calcium 8.0 L Phosphorus Lactate Dehydrogenase Total Creatine Kinase NT-Pro-B Natriuret Pep 1205 H Total Protein Albumin Boglm-4-Zcvtzxpjb Tzssb-6-Kfrjyolwz Beta Globulins PEP Interpretation Cholesterol LDL Cholesterol Direct Urine Creatinine 04/01/16 04/02/16 04/02/16 18:12 00:42 04:17 WBC RBC Hgb Hct MCV MCH MCHC RDW Plt Count Lymph % (Auto) Carbon % (Auto) Lymph # Carbon # Baso # Seg Neutrophils % Seg Neuts % (Manual) Lymphocytes % (Manual) Seg Neutrophils # Seg Neutrophils # Man Lymphocytes # (Manual) Monocytes # (Manual) PT INR APTT Heparin Anti-Xa Level POC ABG pH 7.582 H POC ABG pCO2 26.8 L POC ABG pO2 Sodium Potassium Chloride Carbon Dioxide BUN Creatinine Glucose POC Glucose 168 H 282 H Calcium Phosphorus Lactate Dehydrogenase Total Creatine Kinase NT-Pro-B Natriuret Pep Total Protein Albumin Afpgo-9-Rnjifitdl Rffar-3-Xptjeqtbb Beta Globulins PEP Interpretation Cholesterol LDL Cholesterol Direct Urine Creatinine 04/02/16 04/02/16 04/02/16 05:00 05:00 06:27 WBC 12.4 H RBC Hgb Hct MCV 81 L MCH 26 L MCHC RDW Plt Count Lymph % (Auto) 6.4 L Carbon % (Auto) 13.3 H Lymph # 0.8 L Carbon # 1.7 H Baso # Seg Neutrophils % 79.4 H Seg Neuts % (Manual) Lymphocytes % (Manual) Seg Neutrophils # 9.9 H Seg Neutrophils # Man Lymphocytes # (Manual) Monocytes # (Manual) PT INR APTT Heparin Anti-Xa Level POC ABG pH POC ABG pCO2 POC ABG pO2 Sodium 146 H Potassium Chloride Carbon Dioxide BUN Creatinine Glucose 334 H POC Glucose 317 H Calcium 8.0 L Phosphorus Lactate Dehydrogenase Total Creatine Kinase NT-Pro-B Natriuret Pep Total Protein Albumin Egljd-5-Jbiibfrkm Otsrm-4-Tceqzisnh Beta Globulins PEP Interpretation Cholesterol LDL Cholesterol Direct Urine Creatinine 04/02/16 04/02/16 04/02/16 11:51 13:10 17:24 WBC RBC Hgb Hct MCV MCH MCHC RDW Plt Count Lymph % (Auto) Carbon % (Auto) Lymph # Carbon # Baso # Seg Neutrophils % Seg Neuts % (Manual) Lymphocytes % (Manual) Seg Neutrophils # Seg Neutrophils # Man Lymphocytes # (Manual) Monocytes # (Manual) PT INR APTT Heparin Anti-Xa Level POC ABG pH 7.518 H POC ABG pCO2 POC ABG pO2 Sodium Potassium Chloride Carbon Dioxide BUN Creatinine Glucose POC Glucose 278 H 195 H Calcium Phosphorus Lactate Dehydrogenase Total Creatine Kinase NT-Pro-B Natriuret Pep Total Protein Albumin Cbove-8-Esnbkunct Fdbsy-9-Bmddnulfj Beta Globulins PEP Interpretation Cholesterol LDL Cholesterol Direct Urine Creatinine 04/03/16 04/03/16 04/03/16 00:18 04:10 04:10 WBC 14.3 H RBC Hgb Hct MCV 81 L MCH 26 L MCHC RDW Plt Count Lymph % (Auto) 9.0 L Carbon % (Auto) 10.7 H Lymph # Carbon # 1.5 H Baso # 0.2 H Seg Neutrophils % 78.5 H Seg Neuts % (Manual) Lymphocytes % (Manual) Seg Neutrophils # 11.3 H Seg Neutrophils # Man Lymphocytes # (Manual) Monocytes # (Manual) PT INR APTT Heparin Anti-Xa Level POC ABG pH POC ABG pCO2 POC ABG pO2 Sodium 148 H Potassium Chloride 108.1 H Carbon Dioxide BUN 21 H Creatinine Glucose 227 H POC Glucose 144 H Calcium 8.2 L Phosphorus Lactate Dehydrogenase Total Creatine Kinase NT-Pro-B Natriuret Pep Total Protein Albumin Fpcfc-7-Ekxazewle Hfhef-1-Houfdtlfr Beta Globulins PEP Interpretation Cholesterol LDL Cholesterol Direct Urine Creatinine 04/03/16 04/03/16 04/04/16 11:14 17:10 04:00 WBC 14.5 H RBC Hgb Hct MCV 81 L MCH 26 L MCHC RDW Plt Count Lymph % (Auto) 7.2 L Carbon % (Auto) 7.6 H Lymph # 1.0 L Carbon # 1.1 H Baso # Seg Neutrophils % 84.5 H Seg Neuts % (Manual) Lymphocytes % (Manual) Seg Neutrophils # 12.3 H Seg Neutrophils # Man Lymphocytes # (Manual) Monocytes # (Manual) PT INR APTT Heparin Anti-Xa Level POC ABG pH POC ABG pCO2 POC ABG pO2 Sodium Potassium Chloride Carbon Dioxide BUN Creatinine Glucose POC Glucose 267 H 212 H Calcium Phosphorus Lactate Dehydrogenase Total Creatine Kinase NT-Pro-B Natriuret Pep Total Protein Albumin Wptoq-5-Wvdgstwtc Wolax-9-Omictjrnh Beta Globulins PEP Interpretation Cholesterol LDL Cholesterol Direct Urine Creatinine 04/04/16 04/04/16 04/04/16 05:00 09:55 09:55 WBC RBC Hgb 11.5 L Hct MCV MCH MCHC RDW Plt Count Lymph % (Auto) Carbon % (Auto) Lymph # Carbon # Baso # Seg Neutrophils % Seg Neuts % (Manual) Lymphocytes % (Manual) Seg Neutrophils # Seg Neutrophils # Man Lymphocytes # (Manual) Monocytes # (Manual) PT INR APTT 42.1 H Heparin Anti-Xa Level POC ABG pH POC ABG pCO2 POC ABG pO2 Sodium 146 H Potassium Chloride Carbon Dioxide BUN 22 H Creatinine Glucose 128 H POC Glucose Calcium Phosphorus Lactate Dehydrogenase Total Creatine Kinase NT-Pro-B Natriuret Pep Total Protein Albumin Tgixk-4-Ofvdvxnas Anwpx-5-Ndtgygrgn Beta Globulins PEP Interpretation Cholesterol LDL Cholesterol Direct Urine Creatinine 04/04/16 04/04/16 04/04/16 11:45 17:49 17:55 WBC RBC Hgb Hct MCV MCH MCHC RDW Plt Count Lymph % (Auto) Carbon % (Auto) Lymph # Carbon # Baso # Seg Neutrophils % Seg Neuts % (Manual) Lymphocytes % (Manual) Seg Neutrophils # Seg Neutrophils # Man Lymphocytes # (Manual) Monocytes # (Manual) PT INR APTT Heparin Anti-Xa Level 1.19 H POC ABG pH POC ABG pCO2 POC ABG pO2 Sodium Potassium Chloride Carbon Dioxide BUN Creatinine Glucose POC Glucose 231 H 186 H Calcium Phosphorus Lactate Dehydrogenase Total Creatine Kinase NT-Pro-B Natriuret Pep Total Protein Albumin Fknot-2-Onqfqvist Yzfkm-3-Lmoikzmln Beta Globulins PEP Interpretation Cholesterol LDL Cholesterol Direct Urine Creatinine 04/05/16 04/05/16 04/05/16 00:35 05:32 05:42 WBC RBC Hgb Hct MCV MCH MCHC RDW Plt Count Lymph % (Auto) Carbon % (Auto) Lymph # Carbon # Baso # Seg Neutrophils % Seg Neuts % (Manual) Lymphocytes % (Manual) Seg Neutrophils # Seg Neutrophils # Man Lymphocytes # (Manual) Monocytes # (Manual) PT INR APTT Heparin Anti-Xa Level POC ABG pH 7.491 H POC ABG pCO2 POC ABG pO2 Sodium Potassium Chloride Carbon Dioxide BUN Creatinine Glucose POC Glucose 192 H 242 H Calcium Phosphorus Lactate Dehydrogenase Total Creatine Kinase NT-Pro-B Natriuret Pep Total Protein Albumin Utcbx-6-Dtiqguyqm Timgj-0-Glaijfbgd Beta Globulins PEP Interpretation Cholesterol LDL Cholesterol Direct Urine Creatinine 04/05/16 04/05/16 04/05/16 06:20 06:20 12:19 WBC 13.9 H RBC Hgb 11.6 L Hct MCV 81 L MCH 26 L MCHC RDW Plt Count Lymph % (Auto) 9.6 L Carbon % (Auto) 8.7 H Lymph # Carbon # 1.2 H Baso # Seg Neutrophils % 80.9 H Seg Neuts % (Manual) Lymphocytes % (Manual) Seg Neutrophils # 11.3 H Seg Neutrophils # Man Lymphocytes # (Manual) Monocytes # (Manual) PT INR APTT Heparin Anti-Xa Level POC ABG pH POC ABG pCO2 POC ABG pO2 Sodium 148 H Potassium Chloride Carbon Dioxide BUN 23 H Creatinine Glucose 242 H POC Glucose 187 H Calcium Phosphorus Lactate Dehydrogenase Total Creatine Kinase NT-Pro-B Natriuret Pep Total Protein Albumin Illuq-4-Htynglspq Wesjr-8-Mbanvcort Beta Globulins PEP Interpretation Cholesterol LDL Cholesterol Direct Urine Creatinine 04/05/16 04/05/16 04/06/16 17:10 23:45 05:23 WBC 13.0 H RBC Hgb Hct MCV 82 L MCH 26 L MCHC 31 L RDW Plt Count Lymph % (Auto) 6.7 L Carbon % (Auto) 8.3 H Lymph # 0.9 L Carbon # 1.1 H Baso # Seg Neutrophils % 84.6 H Seg Neuts % (Manual) Lymphocytes % (Manual) Seg Neutrophils # 11.0 H Seg Neutrophils # Man Lymphocytes # (Manual) Monocytes # (Manual) PT INR APTT Heparin Anti-Xa Level POC ABG pH POC ABG pCO2 POC ABG pO2 Sodium Potassium Chloride Carbon Dioxide BUN Creatinine Glucose POC Glucose 169 H 202 H Calcium Phosphorus Lactate Dehydrogenase Total Creatine Kinase NT-Pro-B Natriuret Pep Total Protein Albumin Hcleu-8-Koxyammdi Zjysc-2-Heonebpio Beta Globulins PEP Interpretation Cholesterol LDL Cholesterol Direct Urine Creatinine 04/06/16 04/06/16 04/06/16 05:23 05:23 06:11 WBC RBC Hgb Hct MCV MCH MCHC RDW Plt Count Lymph % (Auto) Carbon % (Auto) Lymph # Carbon # Baso # Seg Neutrophils % Seg Neuts % (Manual) Lymphocytes % (Manual) Seg Neutrophils # Seg Neutrophils # Man Lymphocytes # (Manual) Monocytes # (Manual) PT INR APTT Heparin Anti-Xa Level 0.21 L POC ABG pH POC ABG pCO2 POC ABG pO2 Sodium 153 H Potassium Chloride 111.3 H Carbon Dioxide BUN 22 H Creatinine Glucose 62 L POC Glucose 56 L Calcium Phosphorus Lactate Dehydrogenase Total Creatine Kinase NT-Pro-B Natriuret Pep Total Protein Albumin Duyva-2-Osxjhegoh Cykla-2-Pkosbgzms Beta Globulins PEP Interpretation Cholesterol LDL Cholesterol Direct Urine Creatinine 04/06/16 04/06/16 04/06/16 06:52 11:36 14:58 WBC RBC Hgb Hct MCV MCH MCHC RDW Plt Count Lymph % (Auto) Carbon % (Auto) Lymph # Carbon # Baso # Seg Neutrophils % Seg Neuts % (Manual) Lymphocytes % (Manual) Seg Neutrophils # Seg Neutrophils # Man Lymphocytes # (Manual) Monocytes # (Manual) PT INR APTT Heparin Anti-Xa Level POC ABG pH POC ABG pCO2 POC ABG pO2 Sodium Potassium Chloride Carbon Dioxide BUN Creatinine Glucose POC Glucose 206 H 139 H 147 H Calcium Phosphorus Lactate Dehydrogenase Total Creatine Kinase NT-Pro-B Natriuret Pep Total Protein Albumin Wfhdu-3-Clbahtgky Qdgqr-8-Plmwcenxl Beta Globulins PEP Interpretation Cholesterol LDL Cholesterol Direct Urine Creatinine 04/06/16 04/06/16 04/06/16 16:03 21:18 23:53 WBC RBC Hgb Hct MCV MCH MCHC RDW Plt Count Lymph % (Auto) Carbon % (Auto) Lymph # Carbon # Baso # Seg Neutrophils % Seg Neuts % (Manual) Lymphocytes % (Manual) Seg Neutrophils # Seg Neutrophils # Man Lymphocytes # (Manual) Monocytes # (Manual) PT INR APTT Heparin Anti-Xa Level POC ABG pH POC ABG pCO2 POC ABG pO2 Sodium Potassium Chloride Carbon Dioxide BUN Creatinine Glucose POC Glucose 154 H 293 H 301 H Calcium Phosphorus Lactate Dehydrogenase Total Creatine Kinase NT-Pro-B Natriuret Pep Total Protein Albumin Loebe-2-Ynyolmlpg Zlgbf-8-Vmfkyzhhv Beta Globulins PEP Interpretation Cholesterol LDL Cholesterol Direct Urine Creatinine 04/07/16 04/07/16 04/07/16 02:30 05:11 05:11 WBC 12.5 H RBC Hgb 11.5 L Hct MCV 82 L MCH 26 L MCHC 31 L RDW Plt Count Lymph % (Auto) Carbon % (Auto) Lymph # Carbon # Baso # Seg Neutrophils % Seg Neuts % (Manual) Lymphocytes % (Manual) Seg Neutrophils # Seg Neutrophils # Man Lymphocytes # (Manual) Monocytes # (Manual) PT INR APTT Heparin Anti-Xa Level 0.11 L POC ABG pH POC ABG pCO2 POC ABG pO2 Sodium 150 H Potassium Chloride 109.5 H Carbon Dioxide BUN 28 H Creatinine Glucose 264 H POC Glucose Calcium Phosphorus Lactate Dehydrogenase Total Creatine Kinase NT-Pro-B Natriuret Pep Total Protein Albumin Jljoj-4-Ytvmrhiqr Iuowy-2-Sivvlgdga Beta Globulins PEP Interpretation Cholesterol LDL Cholesterol Direct Urine Creatinine 04/07/16 04/07/16 04/07/16 06:46 10:18 11:50 WBC RBC Hgb Hct MCV MCH MCHC RDW Plt Count Lymph % (Auto) Carbon % (Auto) Lymph # Carbon # Baso # Seg Neutrophils % Seg Neuts % (Manual) Lymphocytes % (Manual) Seg Neutrophils # Seg Neutrophils # Man Lymphocytes # (Manual) Monocytes # (Manual) PT 15.1 H INR 1.20 H APTT Heparin Anti-Xa Level POC ABG pH POC ABG pCO2 POC ABG pO2 Sodium Potassium Chloride Carbon Dioxide BUN Creatinine Glucose POC Glucose 259 H 288 H Calcium Phosphorus Lactate Dehydrogenase Total Creatine Kinase NT-Pro-B Natriuret Pep Total Protein Albumin Dmpqf-6-Qdkvgmbym Eynjh-5-Wzlsngonh Beta Globulins PEP Interpretation Cholesterol LDL Cholesterol Direct Urine Creatinine 04/07/16 04/08/16 04/08/16 17:58 01:25 06:49 WBC RBC Hgb Hct MCV MCH MCHC RDW Plt Count Lymph % (Auto) Carbon % (Auto) Lymph # Carbon # Baso # Seg Neutrophils % Seg Neuts % (Manual) Lymphocytes % (Manual) Seg Neutrophils # Seg Neutrophils # Man Lymphocytes # (Manual) Monocytes # (Manual) PT INR APTT Heparin Anti-Xa Level POC ABG pH POC ABG pCO2 POC ABG pO2 Sodium 156 H Potassium Chloride 114.7 H Carbon Dioxide BUN 33 H Creatinine Glucose 169 H POC Glucose 330 H 146 H Calcium Phosphorus Lactate Dehydrogenase Total Creatine Kinase NT-Pro-B Natriuret Pep Total Protein Albumin Liquq-9-Hkxfsgeca Vrtxu-6-Mnnzwyqpf Beta Globulins PEP Interpretation Cholesterol LDL Cholesterol Direct Urine Creatinine 04/08/16 04/08/16 04/08/16 07:34 10:28 10:28 WBC RBC Hgb Hct MCV MCH MCHC RDW Plt Count Lymph % (Auto) Carbon % (Auto) Lymph # Carbon # Baso # Seg Neutrophils % Seg Neuts % (Manual) Lymphocytes % (Manual) Seg Neutrophils # Seg Neutrophils # Man Lymphocytes # (Manual) Monocytes # (Manual) PT 15.5 H INR 1.24 H APTT Heparin Anti-Xa Level 0.24 L POC ABG pH POC ABG pCO2 POC ABG pO2 Sodium Potassium Chloride Carbon Dioxide BUN Creatinine Glucose POC Glucose 232 H Calcium Phosphorus Lactate Dehydrogenase Total Creatine Kinase NT-Pro-B Natriuret Pep Total Protein Albumin Kvwmg-9-Vqbzdculr Gziix-4-Xclhmbipd Beta Globulins PEP Interpretation Cholesterol LDL Cholesterol Direct Urine Creatinine 04/08/16 04/08/16 04/09/16 11:36 15:38 00:01 WBC RBC Hgb Hct MCV MCH MCHC RDW Plt Count Lymph % (Auto) Carbon % (Auto) Lymph # Carbon # Baso # Seg Neutrophils % Seg Neuts % (Manual) Lymphocytes % (Manual) Seg Neutrophils # Seg Neutrophils # Man Lymphocytes # (Manual) Monocytes # (Manual) PT INR APTT Heparin Anti-Xa Level POC ABG pH POC ABG pCO2 POC ABG pO2 Sodium Potassium Chloride Carbon Dioxide BUN Creatinine Glucose POC Glucose 193 H 163 H 180 H Calcium Phosphorus Lactate Dehydrogenase Total Creatine Kinase NT-Pro-B Natriuret Pep Total Protein Albumin Mayvs-2-Djdlhaido Yriro-5-Hhjgznckp Beta Globulins PEP Interpretation Cholesterol LDL Cholesterol Direct Urine Creatinine 04/09/16 04/09/16 04/09/16 06:17 06:42 06:42 WBC RBC Hgb Hct MCV MCH MCHC RDW Plt Count Lymph % (Auto) Carbon % (Auto) Lymph # Carbon # Baso # Seg Neutrophils % Seg Neuts % (Manual) Lymphocytes % (Manual) Seg Neutrophils # Seg Neutrophils # Man Lymphocytes # (Manual) Monocytes # (Manual) PT 17.4 H INR 1.43 H APTT Heparin Anti-Xa Level POC ABG pH POC ABG pCO2 POC ABG pO2 Sodium 153 H Potassium Chloride 113.2 H Carbon Dioxide BUN 29 H Creatinine Glucose 301 H POC Glucose 249 H Calcium 8.3 L Phosphorus Lactate Dehydrogenase Total Creatine Kinase NT-Pro-B Natriuret Pep Total Protein Albumin Rblfd-5-Feoirzchx Zkacp-3-Xjmhsovxj Beta Globulins PEP Interpretation Cholesterol LDL Cholesterol Direct Urine Creatinine 04/09/16 04/09/16 04/09/16 07:37 11:26 15:45 WBC RBC Hgb Hct MCV MCH MCHC RDW Plt Count Lymph % (Auto) Carbon % (Auto) Lymph # Carbon # Baso # Seg Neutrophils % Seg Neuts % (Manual) Lymphocytes % (Manual) Seg Neutrophils # Seg Neutrophils # Man Lymphocytes # (Manual) Monocytes # (Manual) PT INR APTT Heparin Anti-Xa Level POC ABG pH POC ABG pCO2 POC ABG pO2 Sodium Potassium Chloride Carbon Dioxide BUN Creatinine Glucose POC Glucose 283 H 306 H 354 H Calcium Phosphorus Lactate Dehydrogenase Total Creatine Kinase NT-Pro-B Natriuret Pep Total Protein Albumin Rckfh-7-Eywwrspyi Msatg-3-Uzvdpgckf Beta Globulins PEP Interpretation Cholesterol LDL Cholesterol Direct Urine Creatinine 04/10/16 04/10/16 04/10/16 00:53 07:15 07:34 WBC RBC Hgb 11.3 L Hct MCV MCH MCHC RDW Plt Count Lymph % (Auto) Carbon % (Auto) Lymph # Carbon # Baso # Seg Neutrophils % Seg Neuts % (Manual) Lymphocytes % (Manual) Seg Neutrophils # Seg Neutrophils # Man Lymphocytes # (Manual) Monocytes # (Manual) PT INR APTT Heparin Anti-Xa Level POC ABG pH POC ABG pCO2 POC ABG pO2 Sodium Potassium Chloride Carbon Dioxide BUN Creatinine Glucose POC Glucose 323 H 311 H Calcium Phosphorus Lactate Dehydrogenase Total Creatine Kinase NT-Pro-B Natriuret Pep Total Protein Albumin Ryjdp-0-Fyhojqbtr Evsmo-4-Hpwqecqdi Beta Globulins PEP Interpretation Cholesterol LDL Cholesterol Direct Urine Creatinine 04/10/16 04/10/16 04/10/16 07:34 07:34 11:25 WBC RBC Hgb Hct MCV MCH MCHC RDW Plt Count Lymph % (Auto) Carbon % (Auto) Lymph # Carbon # Baso # Seg Neutrophils % Seg Neuts % (Manual) Lymphocytes % (Manual) Seg Neutrophils # Seg Neutrophils # Man Lymphocytes # (Manual) Monocytes # (Manual) PT 17.3 H INR 1.42 H APTT Heparin Anti-Xa Level POC ABG pH POC ABG pCO2 POC ABG pO2 Sodium 158 H Potassium Chloride 118.6 H Carbon Dioxide BUN 30 H Creatinine Glucose 330 H POC Glucose 335 H Calcium 8.3 L Phosphorus Lactate Dehydrogenase Total Creatine Kinase NT-Pro-B Natriuret Pep Total Protein Albumin Qyeyg-3-Stwqzjcbq Eaphu-9-Bagyisghb Beta Globulins PEP Interpretation Cholesterol LDL Cholesterol Direct Urine Creatinine 04/10/16 04/11/16 04/11/16 16:21 00:29 07:47 WBC RBC Hgb Hct MCV MCH MCHC RDW Plt Count Lymph % (Auto) Carbon % (Auto) Lymph # Carbon # Baso # Seg Neutrophils % Seg Neuts % (Manual) Lymphocytes % (Manual) Seg Neutrophils # Seg Neutrophils # Man Lymphocytes # (Manual) Monocytes # (Manual) PT 18.4 H INR 1.53 H APTT Heparin Anti-Xa Level POC ABG pH POC ABG pCO2 POC ABG pO2 Sodium Potassium Chloride Carbon Dioxide BUN Creatinine Glucose POC Glucose 230 H 162 H Calcium Phosphorus Lactate Dehydrogenase Total Creatine Kinase NT-Pro-B Natriuret Pep Total Protein Albumin Baoaw-1-Btfflughn Gwwtz-8-Rqhgnzoqs Beta Globulins PEP Interpretation Cholesterol LDL Cholesterol Direct Urine Creatinine 04/11/16 04/11/16 04/12/16 07:47 11:22 04:54 WBC RBC Hgb 11.0 L Hct 35.0 L MCV MCH MCHC RDW Plt Count Lymph % (Auto) Carbon % (Auto) Lymph # Carbon # Baso # Seg Neutrophils % Seg Neuts % (Manual) Lymphocytes % (Manual) Seg Neutrophils # Seg Neutrophils # Man Lymphocytes # (Manual) Monocytes # (Manual) PT INR APTT Heparin Anti-Xa Level POC ABG pH POC ABG pCO2 POC ABG pO2 Sodium 155 H Potassium Chloride 114.5 H Carbon Dioxide BUN 23 H Creatinine Glucose 157 H POC Glucose 229 H Calcium Phosphorus Lactate Dehydrogenase Total Creatine Kinase NT-Pro-B Natriuret Pep Total Protein Albumin Rhzcc-5-Zxuzkgjrv Yoshk-7-Olylcyjyu Beta Globulins PEP Interpretation Cholesterol LDL Cholesterol Direct Urine Creatinine 04/12/16 04/12/16 04/12/16 04:54 04:54 05:57 WBC RBC Hgb Hct MCV MCH MCHC RDW Plt Count Lymph % (Auto) Carbon % (Auto) Lymph # Carbon # Baso # Seg Neutrophils % Seg Neuts % (Manual) Lymphocytes % (Manual) Seg Neutrophils # Seg Neutrophils # Man Lymphocytes # (Manual) Monocytes # (Manual) PT 22.5 H INR 1.98 H APTT Heparin Anti-Xa Level 0.19 L POC ABG pH POC ABG pCO2 POC ABG pO2 Sodium 156 H Potassium Chloride 115.4 H Carbon Dioxide BUN 23 H Creatinine Glucose 143 H POC Glucose 194 H Calcium Phosphorus Lactate Dehydrogenase Total Creatine Kinase NT-Pro-B Natriuret Pep Total Protein Albumin Wwpqc-7-Yhqjmpcmt Xczgd-1-Rhvyxlvkk Beta Globulins PEP Interpretation Cholesterol LDL Cholesterol Direct Urine Creatinine 04/12/16 04/12/16 04/12/16 12:34 19:01 23:30 WBC RBC Hgb Hct MCV MCH MCHC RDW Plt Count Lymph % (Auto) Carbon % (Auto) Lymph # Carbon # Baso # Seg Neutrophils % Seg Neuts % (Manual) Lymphocytes % (Manual) Seg Neutrophils # Seg Neutrophils # Man Lymphocytes # (Manual) Monocytes # (Manual) PT INR APTT Heparin Anti-Xa Level POC ABG pH POC ABG pCO2 POC ABG pO2 Sodium Potassium Chloride Carbon Dioxide BUN Creatinine Glucose POC Glucose 291 H 235 H 154 H Calcium Phosphorus Lactate Dehydrogenase Total Creatine Kinase NT-Pro-B Natriuret Pep Total Protein Albumin Ehkxg-2-Izouoidia Elkfr-2-Qtajakkyl Beta Globulins PEP Interpretation Cholesterol LDL Cholesterol Direct Urine Creatinine 04/13/16 04/13/16 04/13/16 05:16 05:16 05:28 WBC RBC Hgb Hct MCV MCH MCHC RDW Plt Count Lymph % (Auto) Carbon % (Auto) Lymph # Carbon # Baso # Seg Neutrophils % Seg Neuts % (Manual) Lymphocytes % (Manual) Seg Neutrophils # Seg Neutrophils # Man Lymphocytes # (Manual) Monocytes # (Manual) PT 27.0 H INR 2.49 H APTT Heparin Anti-Xa Level 0.20 L POC ABG pH POC ABG pCO2 POC ABG pO2 Sodium 150 H Potassium Chloride 110.5 H Carbon Dioxide BUN 21 H Creatinine Glucose 159 H POC Glucose 177 H Calcium Phosphorus Lactate Dehydrogenase Total Creatine Kinase NT-Pro-B Natriuret Pep Total Protein Albumin Bcmto-6-Spnyxtmjr Zcgkc-7-Modazfwum Beta Globulins PEP Interpretation Cholesterol LDL Cholesterol Direct Urine Creatinine 04/13/16 04/13/16 04/14/16 11:30 17:54 00:44 WBC RBC Hgb Hct MCV MCH MCHC RDW Plt Count Lymph % (Auto) Carbon % (Auto) Lymph # Carbon # Baso # Seg Neutrophils % Seg Neuts % (Manual) Lymphocytes % (Manual) Seg Neutrophils # Seg Neutrophils # Man Lymphocytes # (Manual) Monocytes # (Manual) PT INR APTT Heparin Anti-Xa Level POC ABG pH POC ABG pCO2 POC ABG pO2 Sodium Potassium Chloride Carbon Dioxide BUN Creatinine Glucose POC Glucose 181 H 251 H 237 H Calcium Phosphorus Lactate Dehydrogenase Total Creatine Kinase NT-Pro-B Natriuret Pep Total Protein Albumin Syees-3-Lpxddgjos Wyylw-1-Bioontctx Beta Globulins PEP Interpretation Cholesterol LDL Cholesterol Direct Urine Creatinine 04/14/16 04/14/16 04/14/16 05:00 05:42 05:42 WBC RBC Hgb Hct MCV MCH MCHC RDW Plt Count Lymph % (Auto) Carbon % (Auto) Lymph # Carbon # Baso # Seg Neutrophils % Seg Neuts % (Manual) Lymphocytes % (Manual) Seg Neutrophils # Seg Neutrophils # Man Lymphocytes # (Manual) Monocytes # (Manual) PT 30.3 H INR 2.88 H APTT Heparin Anti-Xa Level 0.27 L POC ABG pH POC ABG pCO2 POC ABG pO2 Sodium Potassium 3.5 L Chloride Carbon Dioxide BUN Creatinine Glucose 160 H POC Glucose Calcium 8.2 L Phosphorus Lactate Dehydrogenase Total Creatine Kinase NT-Pro-B Natriuret Pep Total Protein Albumin Hellu-4-Dequhzjse Rekqu-6-Dagshnmpy Beta Globulins PEP Interpretation Cholesterol LDL Cholesterol Direct Urine Creatinine 04/14/16 04/14/16 04/14/16 06:02 06:16 09:18 WBC 12.3 H RBC Hgb 11.4 L Hct MCV 82 L MCH 26 L MCHC RDW Plt Count Lymph % (Auto) Carbon % (Auto) Lymph # Carbon # Baso # Seg Neutrophils % Seg Neuts % (Manual) Lymphocytes % (Manual) Seg Neutrophils # Seg Neutrophils # Man Lymphocytes # (Manual) Monocytes # (Manual) PT INR APTT Heparin Anti-Xa Level POC ABG pH POC ABG pCO2 POC ABG pO2 Sodium Potassium Chloride Carbon Dioxide BUN Creatinine Glucose POC Glucose 156 H 164 H Calcium Phosphorus Lactate Dehydrogenase Total Creatine Kinase NT-Pro-B Natriuret Pep Total Protein Albumin Uayyi-4-Yxltuteqk Yexlh-3-Svigzggag Beta Globulins PEP Interpretation Cholesterol LDL Cholesterol Direct Urine Creatinine 04/14/16 04/15/16 04/15/16 13:58 01:07 06:04 WBC RBC Hgb Hct MCV MCH MCHC RDW Plt Count Lymph % (Auto) Carbon % (Auto) Lymph # Carbon # Baso # Seg Neutrophils % Seg Neuts % (Manual) Lymphocytes % (Manual) Seg Neutrophils # Seg Neutrophils # Man Lymphocytes # (Manual) Monocytes # (Manual) PT 24.9 H INR 2.25 H APTT Heparin Anti-Xa Level POC ABG pH POC ABG pCO2 POC ABG pO2 Sodium Potassium Chloride Carbon Dioxide BUN Creatinine Glucose POC Glucose 109 H 154 H Calcium Phosphorus Lactate Dehydrogenase Total Creatine Kinase NT-Pro-B Natriuret Pep Total Protein Albumin Hxrre-6-Jjunckvjw Nteaz-6-Ejsqqwzuz Beta Globulins PEP Interpretation Cholesterol LDL Cholesterol Direct Urine Creatinine 04/15/16 04/15/16 04/16/16 06:08 12:41 00:38 WBC RBC Hgb Hct MCV MCH MCHC RDW Plt Count Lymph % (Auto) Carbon % (Auto) Lymph # Carbon # Baso # Seg Neutrophils % Seg Neuts % (Manual) Lymphocytes % (Manual) Seg Neutrophils # Seg Neutrophils # Man Lymphocytes # (Manual) Monocytes # (Manual) PT INR APTT Heparin Anti-Xa Level POC ABG pH POC ABG pCO2 POC ABG pO2 Sodium Potassium Chloride Carbon Dioxide BUN Creatinine Glucose POC Glucose 165 H 223 H 216 H Calcium Phosphorus Lactate Dehydrogenase Total Creatine Kinase NT-Pro-B Natriuret Pep Total Protein Albumin Pgvpk-1-Mfabolihx Lxrmr-0-Qtmgvkjjy Beta Globulins PEP Interpretation Cholesterol LDL Cholesterol Direct Urine Creatinine 04/16/16 04/16/16 04/16/16 05:45 07:09 14:00 WBC RBC Hgb Hct MCV MCH MCHC RDW Plt Count Lymph % (Auto) Carbon % (Auto) Lymph # Carbon # Baso # Seg Neutrophils % Seg Neuts % (Manual) Lymphocytes % (Manual) Seg Neutrophils # Seg Neutrophils # Man Lymphocytes # (Manual) Monocytes # (Manual) PT 19.4 H INR 1.64 H APTT Heparin Anti-Xa Level 0.10 L POC ABG pH POC ABG pCO2 POC ABG pO2 Sodium Potassium Chloride Carbon Dioxide BUN Creatinine Glucose POC Glucose 207 H 69 L Calcium Phosphorus Lactate Dehydrogenase Total Creatine Kinase NT-Pro-B Natriuret Pep Total Protein Albumin Wpleb-8-Lbirdawsz Fxwbi-0-Cqmnmjyll Beta Globulins PEP Interpretation Cholesterol LDL Cholesterol Direct Urine Creatinine 04/16/16 04/16/16 04/16/16 17:40 17:52 19:38 WBC RBC Hgb Hct MCV MCH MCHC RDW Plt Count Lymph % (Auto) Carbon % (Auto) Lymph # Carbon # Baso # Seg Neutrophils % Seg Neuts % (Manual) Lymphocytes % (Manual) Seg Neutrophils # Seg Neutrophils # Man Lymphocytes # (Manual) Monocytes # (Manual) PT INR APTT Heparin Anti-Xa Level 0.26 L POC ABG pH 7.543 H 7.488 H POC ABG pCO2 26.3 L 30.3 L POC ABG pO2 55 L 203 H Sodium Potassium Chloride Carbon Dioxide BUN Creatinine Glucose POC Glucose Calcium Phosphorus Lactate Dehydrogenase Total Creatine Kinase NT-Pro-B Natriuret Pep Total Protein Albumin Emxnd-2-Qpwkmiwbw Gujwy-2-Efbpxdvqn Beta Globulins PEP Interpretation Cholesterol LDL Cholesterol Direct Urine Creatinine 04/17/16 04/17/16 04/17/16 00:04 05:10 05:36 WBC RBC Hgb Hct MCV MCH MCHC RDW Plt Count Lymph % (Auto) Carbon % (Auto) Lymph # Carbon # Baso # Seg Neutrophils % Seg Neuts % (Manual) Lymphocytes % (Manual) Seg Neutrophils # Seg Neutrophils # Man Lymphocytes # (Manual) Monocytes # (Manual) PT INR APTT Heparin Anti-Xa Level POC ABG pH POC ABG pCO2 32.7 L POC ABG pO2 68 L Sodium Potassium Chloride Carbon Dioxide BUN Creatinine Glucose POC Glucose 113 H 161 H Calcium Phosphorus Lactate Dehydrogenase Total Creatine Kinase NT-Pro-B Natriuret Pep Total Protein Albumin Pbbki-4-Nqawrrbvx Uhsqg-6-Ggwxuqbqj Beta Globulins PEP Interpretation Cholesterol LDL Cholesterol Direct Urine Creatinine 04/17/16 04/17/16 04/17/16 05:41 08:37 11:46 WBC RBC Hgb Hct MCV MCH MCHC RDW Plt Count Lymph % (Auto) Carbon % (Auto) Lymph # Carbon # Baso # Seg Neutrophils % Seg Neuts % (Manual) Lymphocytes % (Manual) Seg Neutrophils # Seg Neutrophils # Man Lymphocytes # (Manual) Monocytes # (Manual) PT 17.4 H INR 1.43 H APTT Heparin Anti-Xa Level POC ABG pH POC ABG pCO2 POC ABG pO2 Sodium Potassium Chloride Carbon Dioxide BUN Creatinine Glucose POC Glucose 154 H 138 H Calcium Phosphorus Lactate Dehydrogenase Total Creatine Kinase NT-Pro-B Natriuret Pep Total Protein Albumin Jjsvu-8-Jlloxezug Knjpm-6-Ixhxxfjnz Beta Globulins PEP Interpretation Cholesterol LDL Cholesterol Direct Urine Creatinine 04/17/16 04/17/16 04/17/16 12:17 12:17 21:20 WBC 16.5 H RBC 3.31 L Hgb 8.8 L Hct 26.9 L MCV 81 L MCH 27 L MCHC RDW 15.5 H Plt Count Lymph % (Auto) Carbon % (Auto) Lymph # Carbon # Baso # Seg Neutrophils % Seg Neuts % (Manual) Lymphocytes % (Manual) 3.0 L Seg Neutrophils # Seg Neutrophils # Man 10.1 H Lymphocytes # (Manual) 0.5 L Monocytes # (Manual) PT INR APTT Heparin Anti-Xa Level 0.14 L POC ABG pH POC ABG pCO2 POC ABG pO2 Sodium Potassium Chloride Carbon Dioxide 21 L BUN 38 H Creatinine 1.8 H D Glucose 131 H POC Glucose Calcium 7.6 L Phosphorus Lactate Dehydrogenase Total Creatine Kinase NT-Pro-B Natriuret Pep Total Protein Albumin [id number] Beta Globulins PEP Interpretation Cholesterol LDL Cholesterol Direct Urine Creatinine 04/17/16 04/17/16 04/18/16 23:38 23:41 00:21 WBC RBC Hgb Hct MCV MCH MCHC RDW Plt Count Lymph % (Auto) Carbon % (Auto) Lymph # Carbon # Baso # Seg Neutrophils % Seg Neuts % (Manual) Lymphocytes % (Manual) Seg Neutrophils # Seg Neutrophils # Man Lymphocytes # (Manual) Monocytes # (Manual) PT INR APTT Heparin Anti-Xa Level POC ABG pH POC ABG pCO2 POC ABG pO2 Sodium Potassium Chloride Carbon Dioxide BUN Creatinine Glucose POC Glucose < 40 L < 40 L 223 H Calcium Phosphorus Lactate Dehydrogenase Total Creatine Kinase NT-Pro-B Natriuret Pep Total Protein Albumin Badxp-3-Sjyvehqyj Hnviw-9-Vmfenbdgv Beta Globulins PEP Interpretation Cholesterol LDL Cholesterol Direct Urine Creatinine 04/18/16 04/18/16 04/18/16 05:01 05:20 05:20 WBC 17.6 H RBC 3.44 L Hgb 9.1 L Hct 27.8 L MCV 81 L MCH 26 L MCHC RDW 15.5 H Plt Count Lymph % (Auto) 2.7 L Carbon % (Auto) 8.3 H Lymph # 0.5 L Carbon # 1.5 H Baso # Seg Neutrophils % 88.4 H Seg Neuts % (Manual) Lymphocytes % (Manual) Seg Neutrophils # 15.6 H Seg Neutrophils # Man Lymphocytes # (Manual) Monocytes # (Manual) PT 17.4 H INR 1.43 H APTT Heparin Anti-Xa Level POC ABG pH 7.528 H POC ABG pCO2 27.9 L POC ABG pO2 Sodium Potassium Chloride Carbon Dioxide BUN Creatinine Glucose POC Glucose Calcium Phosphorus Lactate Dehydrogenase Total Creatine Kinase NT-Pro-B Natriuret Pep Total Protein Albumin Vzuvv-9-Taqfszhck Kyyfm-9-Zwdmcbrdv Beta Globulins PEP Interpretation Cholesterol LDL Cholesterol Direct Urine Creatinine 04/18/16 04/18/16 04/18/16 05:20 05:31 06:50 WBC RBC Hgb Hct MCV MCH MCHC RDW Plt Count Lymph % (Auto) Carbon % (Auto) Lymph # Carbon # Baso # Seg Neutrophils % Seg Neuts % (Manual) Lymphocytes % (Manual) Seg Neutrophils # Seg Neutrophils # Man Lymphocytes # (Manual) Monocytes # (Manual) PT INR APTT Heparin Anti-Xa Level POC ABG pH POC ABG pCO2 POC ABG pO2 Sodium Potassium 3.4 L Chloride Carbon Dioxide 21 L BUN 22 H Creatinine Glucose POC Glucose 61 L 124 H Calcium 8.0 L Phosphorus Lactate Dehydrogenase Total Creatine Kinase NT-Pro-B Natriuret Pep Total Protein Albumin Taiub-5-Ruypiyhvb Esfcu-5-Mejhxwreo Beta Globulins PEP Interpretation Cholesterol LDL Cholesterol Direct Urine Creatinine 04/18/16 04/18/16 04/19/16 17:42 22:40 00:31 WBC RBC Hgb Hct MCV MCH MCHC RDW Plt Count Lymph % (Auto) Carbon % (Auto) Lymph # Carbon # Baso # Seg Neutrophils % Seg Neuts % (Manual) Lymphocytes % (Manual) Seg Neutrophils # Seg Neutrophils # Man Lymphocytes # (Manual) Monocytes # (Manual) PT INR APTT Heparin Anti-Xa Level < 0.10 L POC ABG pH POC ABG pCO2 POC ABG pO2 Sodium Potassium Chloride Carbon Dioxide BUN Creatinine Glucose POC Glucose 159 H 134 H Calcium Phosphorus Lactate Dehydrogenase Total Creatine Kinase NT-Pro-B Natriuret Pep Total Protein Albumin Bywbh-9-Binmgqgfl Jbobh-0-Hjcdbfaxx Beta Globulins PEP Interpretation Cholesterol LDL Cholesterol Direct Urine Creatinine 04/19/16 04/19/16 04/19/16 04:18 04:18 04:25 WBC 19.0 H RBC 3.58 L Hgb 9.3 L Hct 28.8 L MCV 80 L MCH 26 L MCHC RDW 15.5 H Plt Count Lymph % (Auto) 2.8 L Carbon % (Auto) 7.4 H Lymph # 0.5 L Carbon # 1.4 H Baso # Seg Neutrophils % 89.4 H Seg Neuts % (Manual) Lymphocytes % (Manual) Seg Neutrophils # 17.0 H Seg Neutrophils # Man Lymphocytes # (Manual) Monocytes # (Manual) PT INR APTT Heparin Anti-Xa Level POC ABG pH 7.527 H POC ABG pCO2 27.1 L POC ABG pO2 Sodium Potassium Chloride Carbon Dioxide BUN 22 H Creatinine Glucose 215 H POC Glucose Calcium 8.0 L Phosphorus Lactate Dehydrogenase Total Creatine Kinase NT-Pro-B Natriuret Pep Total Protein Albumin Rqdbn-7-Rsiodsuab Wsckr-2-Arnjcpmhw Beta Globulins PEP Interpretation Cholesterol LDL Cholesterol Direct Urine Creatinine 04/19/16 04/19/16 04/19/16 05:45 08:10 14:08 WBC RBC Hgb Hct MCV MCH MCHC RDW Plt Count Lymph % (Auto) Carbon % (Auto) Lymph # Carbon # Baso # Seg Neutrophils % Seg Neuts % (Manual) Lymphocytes % (Manual) Seg Neutrophils # Seg Neutrophils # Man Lymphocytes # (Manual) Monocytes # (Manual) PT 22.1 H INR 1.93 H APTT Heparin Anti-Xa Level 0.17 L POC ABG pH POC ABG pCO2 POC ABG pO2 Sodium Potassium Chloride Carbon Dioxide BUN Creatinine Glucose POC Glucose 196 H 318 H Calcium Phosphorus Lactate Dehydrogenase Total Creatine Kinase NT-Pro-B Natriuret Pep Total Protein Albumin Cdflq-3-Rcidvfbic Qeatk-8-Lyevhbira Beta Globulins PEP Interpretation Cholesterol LDL Cholesterol Direct Urine Creatinine 04/19/16 04/20/16 04/20/16 17:27 03:55 03:55 WBC 18.5 H RBC 3.19 L Hgb 8.4 L Hct 25.7 L MCV 80 L MCH 26 L MCHC RDW 15.9 H Plt Count Lymph % (Auto) 4.3 L Carbon % (Auto) 10.1 H Lymph # 0.8 L Carbon # 1.9 H Baso # Seg Neutrophils % 85.2 H Seg Neuts % (Manual) Lymphocytes % (Manual) Seg Neutrophils # 15.8 H Seg Neutrophils # Man Lymphocytes # (Manual) Monocytes # (Manual) PT 22.0 H INR 1.92 H APTT Heparin Anti-Xa Level 0.14 L POC ABG pH POC ABG pCO2 POC ABG pO2 Sodium Potassium Chloride Carbon Dioxide BUN Creatinine Glucose POC Glucose 230 H Calcium Phosphorus Lactate Dehydrogenase Total Creatine Kinase NT-Pro-B Natriuret Pep Total Protein Albumin Iwycd-0-Oiwisvcsa Dbqkv-9-Msjdhyewf Beta Globulins PEP Interpretation Cholesterol LDL Cholesterol Direct Urine Creatinine 04/20/16 04/20/16 04/20/16 03:55 04:16 05:52 WBC RBC Hgb Hct MCV MCH MCHC RDW Plt Count Lymph % (Auto) Carbon % (Auto) Lymph # Carbon # Baso # Seg Neutrophils % Seg Neuts % (Manual) Lymphocytes % (Manual) Seg Neutrophils # Seg Neutrophils # Man Lymphocytes # (Manual) Monocytes # (Manual) PT INR APTT Heparin Anti-Xa Level POC ABG pH 7.474 H POC ABG pCO2 26.5 L POC ABG pO2 Sodium Potassium Chloride Carbon Dioxide 18 L BUN 38 H Creatinine 2.7 H D Glucose 159 H POC Glucose 214 H Calcium 8.0 L Phosphorus Lactate Dehydrogenase Total Creatine Kinase NT-Pro-B Natriuret Pep Total Protein Albumin Nqigj-0-Hpymcqxhr Aqgyn-1-Otzkiyvcy Beta Globulins PEP Interpretation Cholesterol LDL Cholesterol Direct Urine Creatinine 04/20/16 04/20/16 04/20/16 10:32 11:27 11:50 WBC RBC Hgb Hct MCV MCH MCHC RDW Plt Count Lymph % (Auto) Carbon % (Auto) Lymph # Carbon # Baso # Seg Neutrophils % Seg Neuts % (Manual) Lymphocytes % (Manual) Seg Neutrophils # Seg Neutrophils # Man Lymphocytes # (Manual) Monocytes # (Manual) PT INR APTT Heparin Anti-Xa Level POC ABG pH POC ABG pCO2 POC ABG pO2 Sodium Potassium Chloride Carbon Dioxide 20 L BUN 45 H Creatinine 3.0 H Glucose 215 H POC Glucose 248 H Calcium 8.0 L Phosphorus Lactate Dehydrogenase Total Creatine Kinase NT-Pro-B Natriuret Pep Total Protein Albumin Izfmw-2-Fcvqsvzqs Warae-7-Bikizuyma Beta Globulins PEP Interpretation Cholesterol LDL Cholesterol Direct Urine Creatinine 85.5 H 04/20/16 04/21/16 04/21/16 16:59 00:13 04:29 WBC RBC Hgb Hct MCV MCH MCHC RDW Plt Count Lymph % (Auto) Carbon % (Auto) Lymph # Carbon # Baso # Seg Neutrophils % Seg Neuts % (Manual) Lymphocytes % (Manual) Seg Neutrophils # Seg Neutrophils # Man Lymphocytes # (Manual) Monocytes # (Manual) PT 18.1 H INR 1.50 H APTT Heparin Anti-Xa Level 0.10 L POC ABG pH POC ABG pCO2 POC ABG pO2 Sodium Potassium Chloride Carbon Dioxide BUN Creatinine Glucose POC Glucose 312 H 287 H Calcium Phosphorus Lactate Dehydrogenase Total Creatine Kinase NT-Pro-B Natriuret Pep Total Protein Albumin Xdkbb-9-Utunxakyc Qgafy-1-Vxhawhbxg Beta Globulins PEP Interpretation Cholesterol LDL Cholesterol Direct Urine Creatinine 04/21/16 04/21/16 04/21/16 04:29 04:29 04:55 WBC 15.4 H RBC 3.24 L Hgb 8.4 L Hct 25.6 L MCV 79 L MCH 26 L MCHC RDW 16.1 H Plt Count Lymph % (Auto) 6.8 L Carbon % (Auto) 12.9 H Lymph # 1.0 L Carbon # 2.0 H Baso # Seg Neutrophils % 79.8 H Seg Neuts % (Manual) Lymphocytes % (Manual) Seg Neutrophils # 12.3 H Seg Neutrophils # Man Lymphocytes # (Manual) Monocytes # (Manual) PT INR APTT Heparin Anti-Xa Level POC ABG pH 7.512 H POC ABG pCO2 25.4 L POC ABG pO2 Sodium 135 L Potassium Chloride Carbon Dioxide 18 L BUN 57 H Creatinine 3.9 H Glucose 202 H POC Glucose Calcium 8.0 L Phosphorus Lactate Dehydrogenase Total Creatine Kinase NT-Pro-B Natriuret Pep Total Protein Albumin Ewxie-9-Hbhlawvho Sqfsi-4-Rbzgldjko Beta Globulins PEP Interpretation Cholesterol LDL Cholesterol Direct Urine Creatinine 04/21/16 04/21/16 04/21/16 05:20 12:08 12:16 WBC RBC Hgb Hct MCV MCH MCHC RDW Plt Count Lymph % (Auto) Carbon % (Auto) Lymph # Carbon # Baso # Seg Neutrophils % Seg Neuts % (Manual) Lymphocytes % (Manual) Seg Neutrophils # Seg Neutrophils # Man Lymphocytes # (Manual) Monocytes # (Manual) PT INR APTT Heparin Anti-Xa Level 0.16 L POC ABG pH POC ABG pCO2 POC ABG pO2 Sodium Potassium Chloride Carbon Dioxide BUN Creatinine Glucose POC Glucose 203 H 221 H Calcium Phosphorus Lactate Dehydrogenase Total Creatine Kinase NT-Pro-B Natriuret Pep Total Protein Albumin Kdenp-7-Dcdubpcjh Kemeb-4-Vwistptoc Beta Globulins PEP Interpretation Cholesterol LDL Cholesterol Direct Urine Creatinine 04/21/16 04/22/16 04/22/16 17:22 05:01 05:20 WBC RBC Hgb Hct MCV MCH MCHC RDW Plt Count Lymph % (Auto) Carbon % (Auto) Lymph # Carbon # Baso # Seg Neutrophils % Seg Neuts % (Manual) Lymphocytes % (Manual) Seg Neutrophils # Seg Neutrophils # Man Lymphocytes # (Manual) Monocytes # (Manual) PT 17.5 H INR 1.44 H APTT Heparin Anti-Xa Level POC ABG pH 7.460 H POC ABG pCO2 27.9 L POC ABG pO2 Sodium Potassium Chloride Carbon Dioxide BUN Creatinine Glucose POC Glucose 189 H Calcium Phosphorus Lactate Dehydrogenase Total Creatine Kinase NT-Pro-B Natriuret Pep Total Protein Albumin Zbgvw-8-Zybzxbhvf Ypleh-2-Ghvykaqhf Beta Globulins PEP Interpretation Cholesterol LDL Cholesterol Direct Urine Creatinine 04/22/16 04/22/16 04/22/16 05:43 06:40 08:08 WBC RBC Hgb Hct MCV MCH MCHC RDW Plt Count Lymph % (Auto) Carbon % (Auto) Lymph # Carbon # Baso # Seg Neutrophils % Seg Neuts % (Manual) Lymphocytes % (Manual) Seg Neutrophils # Seg Neutrophils # Man Lymphocytes # (Manual) Monocytes # (Manual) PT INR APTT Heparin Anti-Xa Level POC ABG pH POC ABG pCO2 POC ABG pO2 Sodium Potassium Chloride Carbon Dioxide BUN Creatinine Glucose POC Glucose 56 L 136 H 134 H Calcium Phosphorus Lactate Dehydrogenase Total Creatine Kinase NT-Pro-B Natriuret Pep Total Protein Albumin Vvbgm-0-Ugvgwxybc Zcdts-4-Pnothvnyv Beta Globulins PEP Interpretation Cholesterol LDL Cholesterol Direct Urine Creatinine 04/22/16 04/22/16 04/22/16 11:18 12:10 18:17 WBC RBC Hgb Hct MCV MCH MCHC RDW Plt Count Lymph % (Auto) Carbon % (Auto) Lymph # Carbon # Baso # Seg Neutrophils % Seg Neuts % (Manual) Lymphocytes % (Manual) Seg Neutrophils # Seg Neutrophils # Man Lymphocytes # (Manual) Monocytes # (Manual) PT INR APTT Heparin Anti-Xa Level 0.12 L POC ABG pH POC ABG pCO2 POC ABG pO2 Sodium Potassium Chloride Carbon Dioxide BUN Creatinine Glucose POC Glucose 142 H 227 H Calcium Phosphorus Lactate Dehydrogenase Total Creatine Kinase NT-Pro-B Natriuret Pep Total Protein Albumin Qgeup-9-Ohqdrpeyi Ewuxk-0-Peehwditp Beta Globulins PEP Interpretation Cholesterol LDL Cholesterol Direct Urine Creatinine 04/22/16 04/22/16 04/23/16 22:28 23:47 04:49 WBC RBC Hgb Hct MCV MCH MCHC RDW Plt Count Lymph % (Auto) Carbon % (Auto) Lymph # Carbon # Baso # Seg Neutrophils % Seg Neuts % (Manual) Lymphocytes % (Manual) Seg Neutrophils # Seg Neutrophils # Man Lymphocytes # (Manual) Monocytes # (Manual) PT INR APTT Heparin Anti-Xa Level 0.16 L POC ABG pH POC ABG pCO2 32.6 L POC ABG pO2 122 H Sodium Potassium Chloride Carbon Dioxide BUN Creatinine Glucose POC Glucose 266 H Calcium Phosphorus Lactate Dehydrogenase Total Creatine Kinase NT-Pro-B Natriuret Pep Total Protein Albumin Emncs-2-Dsvduomee Gwlvb-9-Lroxbifsl Beta Globulins PEP Interpretation Cholesterol LDL Cholesterol Direct Urine Creatinine 04/23/16 04/23/16 04/23/16 05:41 08:05 08:34 WBC RBC Hgb Hct MCV MCH MCHC RDW Plt Count Lymph % (Auto) Carbon % (Auto) Lymph # Carbon # Baso # Seg Neutrophils % Seg Neuts % (Manual) Lymphocytes % (Manual) Seg Neutrophils # Seg Neutrophils # Man Lymphocytes # (Manual) Monocytes # (Manual) PT INR APTT Heparin Anti-Xa Level POC ABG pH POC ABG pCO2 POC ABG pO2 Sodium Potassium Chloride 109.5 H Carbon Dioxide 21 L BUN 23 H Creatinine Glucose 227 H POC Glucose 227 H 224 H Calcium 8.2 L Phosphorus Lactate Dehydrogenase Total Creatine Kinase NT-Pro-B Natriuret Pep Total Protein Albumin Ywosi-9-Cxhgrcnxd Alrhl-9-Whvxejxrn Beta Globulins PEP Interpretation Cholesterol LDL Cholesterol Direct Urine Creatinine 04/23/16 04/23/16 04/23/16 10:45 11:37 22:49 WBC RBC Hgb Hct MCV MCH MCHC RDW Plt Count Lymph % (Auto) Carbon % (Auto) Lymph # Carbon # Baso # Seg Neutrophils % Seg Neuts % (Manual) Lymphocytes % (Manual) Seg Neutrophils # Seg Neutrophils # Man Lymphocytes # (Manual) Monocytes # (Manual) PT 15.9 H INR 1.28 H APTT Heparin Anti-Xa Level 0.12 L POC ABG pH POC ABG pCO2 POC ABG pO2 Sodium Potassium Chloride Carbon Dioxide BUN Creatinine Glucose POC Glucose 256 H Calcium Phosphorus Lactate Dehydrogenase Total Creatine Kinase NT-Pro-B Natriuret Pep Total Protein Albumin Dnclg-0-Ydcensfyz Ffspt-3-Qcmlfgaxh Beta Globulins PEP Interpretation Cholesterol LDL Cholesterol Direct Urine Creatinine 04/23/16 04/24/16 04/24/16 23:59 05:29 06:03 WBC RBC Hgb Hct MCV MCH MCHC RDW Plt Count Lymph % (Auto) Carbon % (Auto) Lymph # Carbon # Baso # Seg Neutrophils % Seg Neuts % (Manual) Lymphocytes % (Manual) Seg Neutrophils # Seg Neutrophils # Man Lymphocytes # (Manual) Monocytes # (Manual) PT INR APTT Heparin Anti-Xa Level POC ABG pH 7.464 H POC ABG pCO2 32.4 L POC ABG pO2 115 H Sodium Potassium Chloride Carbon Dioxide BUN Creatinine Glucose POC Glucose 176 H 256 H Calcium Phosphorus Lactate Dehydrogenase Total Creatine Kinase NT-Pro-B Natriuret Pep Total Protein Albumin Fbhad-8-Wgzqigoiu Hlthm-1-Ppwtcfxnn Beta Globulins PEP Interpretation Cholesterol LDL Cholesterol Direct Urine Creatinine 04/24/16 04/24/16 04/24/16 07:59 12:10 17:17 WBC RBC Hgb Hct MCV MCH MCHC RDW Plt Count Lymph % (Auto) Carbon % (Auto) Lymph # Carbon # Baso # Seg Neutrophils % Seg Neuts % (Manual) Lymphocytes % (Manual) Seg Neutrophils # Seg Neutrophils # Man Lymphocytes # (Manual) Monocytes # (Manual) PT INR APTT Heparin Anti-Xa Level 0.18 L POC ABG pH POC ABG pCO2 POC ABG pO2 Sodium Potassium Chloride Carbon Dioxide BUN Creatinine Glucose POC Glucose 304 H 325 H Calcium Phosphorus Lactate Dehydrogenase Total Creatine Kinase NT-Pro-B Natriuret Pep Total Protein Albumin Cpeti-7-Wsfimrxgd Mmwni-5-Aghrgxywr Beta Globulins PEP Interpretation Cholesterol LDL Cholesterol Direct Urine Creatinine 04/25/16 04/25/16 04/25/16 00:52 06:40 06:44 WBC RBC Hgb Hct MCV MCH MCHC RDW Plt Count Lymph % (Auto) Carbon % (Auto) Lymph # Carbon # Baso # Seg Neutrophils % Seg Neuts % (Manual) Lymphocytes % (Manual) Seg Neutrophils # Seg Neutrophils # Man Lymphocytes # (Manual) Monocytes # (Manual) PT INR APTT Heparin Anti-Xa Level 0.11 L POC ABG pH POC ABG pCO2 POC ABG pO2 Sodium Potassium Chloride Carbon Dioxide BUN Creatinine Glucose POC Glucose 212 H 184 H Calcium Phosphorus Lactate Dehydrogenase Total Creatine Kinase NT-Pro-B Natriuret Pep Total Protein Albumin Tglcv-9-Qbhjxkraf Amvvu-5-Stmegjwal Beta Globulins PEP Interpretation Cholesterol LDL Cholesterol Direct Urine Creatinine 04/25/16 04/25/16 04/25/16 11:40 13:26 17:27 WBC RBC Hgb Hct MCV MCH MCHC RDW Plt Count Lymph % (Auto) Carbon % (Auto) Lymph # Carbon # Baso # Seg Neutrophils % Seg Neuts % (Manual) Lymphocytes % (Manual) Seg Neutrophils # Seg Neutrophils # Man Lymphocytes # (Manual) Monocytes # (Manual) PT INR APTT Heparin Anti-Xa Level 0.21 L POC ABG pH POC ABG pCO2 POC ABG pO2 Sodium Potassium Chloride Carbon Dioxide BUN Creatinine Glucose POC Glucose 206 H 204 H Calcium Phosphorus Lactate Dehydrogenase Total Creatine Kinase NT-Pro-B Natriuret Pep Total Protein Albumin Ljxqv-4-Uekxkuazf Dpkig-8-Ypqiatmrv Beta Globulins PEP Interpretation Cholesterol LDL Cholesterol Direct Urine Creatinine 04/25/16 04/26/16 04/26/16 23:46 06:31 11:51 WBC RBC Hgb Hct MCV MCH MCHC RDW Plt Count Lymph % (Auto) Carbon % (Auto) Lymph # Carbon # Baso # Seg Neutrophils % Seg Neuts % (Manual) Lymphocytes % (Manual) Seg Neutrophils # Seg Neutrophils # Man Lymphocytes # (Manual) Monocytes # (Manual) PT INR APTT Heparin Anti-Xa Level POC ABG pH POC ABG pCO2 POC ABG pO2 Sodium Potassium Chloride Carbon Dioxide BUN Creatinine Glucose POC Glucose 162 H 148 H 178 H Calcium Phosphorus Lactate Dehydrogenase Total Creatine Kinase NT-Pro-B Natriuret Pep Total Protein Albumin Fufuh-0-Ekiqmmjzu Mrutg-0-Errrejgdi Beta Globulins PEP Interpretation Cholesterol LDL Cholesterol Direct Urine Creatinine 04/26/16 04/26/16 04/26/16 12:17 16:16 18:14 WBC RBC Hgb Hct MCV MCH MCHC RDW Plt Count Lymph % (Auto) Carbon % (Auto) Lymph # Carbon # Baso # Seg Neutrophils % Seg Neuts % (Manual) Lymphocytes % (Manual) Seg Neutrophils # Seg Neutrophils # Man Lymphocytes # (Manual) Monocytes # (Manual) PT INR APTT Heparin Anti-Xa Level POC ABG pH 7.513 H POC ABG pCO2 POC ABG pO2 76 L Sodium Potassium Chloride Carbon Dioxide BUN Creatinine Glucose POC Glucose 186 H 172 H Calcium Phosphorus Lactate Dehydrogenase Total Creatine Kinase NT-Pro-B Natriuret Pep Total Protein Albumin Nloaz-3-Fnleyebdo Ggcpr-7-Vztyduyhe Beta Globulins PEP Interpretation Cholesterol LDL Cholesterol Direct Urine Creatinine 04/26/16 04/26/16 04/27/16 19:27 23:28 04:21 WBC 13.1 H RBC 2.99 L Hgb 7.8 L Hct 24.0 L MCV 81 L MCH 26 L MCHC RDW 16.7 H Plt Count 486 H Lymph % (Auto) 12.5 L Carbon % (Auto) 7.9 H Lymph # Carbon # 1.0 H Baso # Seg Neutrophils % 77.5 H Seg Neuts % (Manual) Lymphocytes % (Manual) Seg Neutrophils # 10.2 H Seg Neutrophils # Man Lymphocytes # (Manual) Monocytes # (Manual) PT INR APTT Heparin Anti-Xa Level 0.22 L POC ABG pH POC ABG pCO2 POC ABG pO2 Sodium Potassium Chloride Carbon Dioxide BUN Creatinine Glucose POC Glucose 141 H Calcium Phosphorus Lactate Dehydrogenase Total Creatine Kinase NT-Pro-B Natriuret Pep Total Protein Albumin Yuiqr-1-Zcvbammdi Egdet-2-Zkxdywhyr Beta Globulins PEP Interpretation Cholesterol LDL Cholesterol Direct Urine Creatinine 04/27/16 04/27/16 04:21 05:46 WBC RBC Hgb Hct MCV MCH MCHC RDW Plt Count Lymph % (Auto) Carbon % (Auto) Lymph # Carbon # Baso # Seg Neutrophils % Seg Neuts % (Manual) Lymphocytes % (Manual) Seg Neutrophils # Seg Neutrophils # Man Lymphocytes # (Manual) Monocytes # (Manual) PT INR APTT Heparin Anti-Xa Level POC ABG pH POC ABG pCO2 POC ABG pO2 Sodium Potassium Chloride Carbon Dioxide BUN Creatinine 0.6 L Glucose 187 H POC Glucose 192 H Calcium 8.0 L Phosphorus Lactate Dehydrogenase Total Creatine Kinase NT-Pro-B Natriuret Pep Total Protein 6.0 L Albumin 2.0 L Sjolh-1-Cigudzuky Wurco-5-Ocvamitkz Beta Globulins PEP Interpretation Cholesterol LDL Cholesterol Direct Urine Creatinine
[2016-04-27] MEDS: CORDARONE PO SCH (09:47)
[2016-04-27] MEDS: PEPCID PO SCH (09:47)
[2016-04-27] MEDS: NORVASC PO SCH (09:48)
[2016-04-27] MEDS: BABY ASPIRIN PO SCH (09:49)
[2016-04-27] MEDS: LEVEMIR SUB-Q SCH (09:49)
[2016-04-27] MEDS: KEPPRA PO SCH (09:51)
[2016-04-27] MEDS: ZESTRIL PO SCH (09:51)
[2016-04-27 11:11] LABS: ISTAT Base Excess 6; ISTAT HCO3 29.7; ISTAT PCO2 39.1 (35-45); ISTAT PH 7.489 (7.35-7.45); ISTAT PO2 71 (80-105); ISTAT SO2 95; ISTAT TCO2 31
--- NOTE | 2016-04-27 12:00 | Progress Note ---
Assessment and Plan 1. The tracheostomy is scheduled for 04/29. I spoke to the today to explain the procedure and it's risks/benefits. Ample time was given for any questions and she wishes to proceed forward with the procedure. Subjective Date of service: 04/27/16 Narrative: The patient remains intubated. Objective Vital Signs - 12hr 04/27/16 04/27/16 04/27/16 00:00 00:30 00:46 Temperature 98.8 F Pulse Rate 70 71 80 Pulse Rate [ Anterior Bilateral Throughout] Pulse Rate [ 77 From Monitor] Respiratory 12 11 L Rate Respiratory Rate [Anterior Bilateral Throughout] Blood Pressure 128/71 133/73 133/73 O2 Sat by Pulse 100 100 100 Oximetry 04/27/16 04/27/16 04/27/16 00:59 01:00 01:18 Temperature Pulse Rate 71 Pulse Rate [ 81 83 Anterior Bilateral Throughout] Pulse Rate [ From Monitor] Respiratory 13 Rate Respiratory 20 18 Rate [Anterior Bilateral Throughout] Blood Pressure 127/76 O2 Sat by Pulse 100 Oximetry 04/27/16 04/27/16 04/27/16 01:19 01:30 01:42 Temperature Pulse Rate 69 71 69 Pulse Rate [ Anterior Bilateral Throughout] Pulse Rate [ From Monitor] Respiratory 12 18 19 Rate Respiratory Rate [Anterior Bilateral Throughout] Blood Pressure 127/76 138/72 138/72 O2 Sat by Pulse 100 100 100 Oximetry 04/27/16 04/27/16 04/27/16 01:52 02:00 02:22 Temperature Pulse Rate 68 72 70 Pulse Rate [ Anterior Bilateral Throughout] Pulse Rate [ From Monitor] Respiratory 16 19 18 Rate Respiratory Rate [Anterior Bilateral Throughout] Blood Pressure 127/76 144/77 144/77 O2 Sat by Pulse 100 100 100 Oximetry 04/27/16 04/27/16 04/27/16 02:30 03:00 03:30 Temperature Pulse Rate 76 74 74 Pulse Rate [ Anterior Bilateral Throughout] Pulse Rate [ From Monitor] Respiratory 19 20 20 Rate Respiratory Rate [Anterior Bilateral Throughout] Blood Pressure 148/76 141/79 146/79 O2 Sat by Pulse 100 100 100 Oximetry 04/27/16 04/27/16 04/27/16 04:00 04:24 04:30 Temperature 99.1 F Pulse Rate 70 73 71 Pulse Rate [ Anterior Bilateral Throughout] Pulse Rate [ From Monitor] Respiratory 18 18 Rate Respiratory Rate [Anterior Bilateral Throughout] Blood Pressure 129/71 133/72 133/72 O2 Sat by Pulse 100 100 100 Oximetry 04/27/16 04/27/16 04/27/16 05:00 05:30 06:00 Temperature Pulse Rate 70 71 70 Pulse Rate [ Anterior Bilateral Throughout] Pulse Rate [ From Monitor] Respiratory 20 19 18 Rate Respiratory Rate [Anterior Bilateral Throughout] Blood Pressure 140/76 142/74 144/77 O2 Sat by Pulse 100 100 100 Oximetry 04/27/16 04/27/16 04/27/16 06:30 07:00 07:30 Temperature Pulse Rate 70 70 69 Pulse Rate [ Anterior Bilateral Throughout] Pulse Rate [ From Monitor] Respiratory 18 19 17 Rate Respiratory Rate [Anterior Bilateral Throughout] Blood Pressure 132/72 136/72 137/72 O2 Sat by Pulse 99 100 98 Oximetry 04/27/16 04/27/16 04/27/16 08:00 08:30 08:34 Temperature Pulse Rate 76 75 Pulse Rate [ 80 Anterior Bilateral Throughout] Pulse Rate [ From Monitor] Respiratory Rate Respiratory 21 Rate [Anterior Bilateral Throughout] Blood Pressure 153/80 155/83 O2 Sat by Pulse 100 Oximetry 04/27/16 04/27/16 04/27/16 08:55 09:01 09:48 Temperature Pulse Rate 76 76 Pulse Rate [ 76 Anterior Bilateral Throughout] Pulse Rate [ From Monitor] Respiratory 26 H Rate Respiratory 13 Rate [Anterior Bilateral Throughout] Blood Pressure 154/85 154/85 O2 Sat by Pulse 99 Oximetry 04/27/16 11:04 Temperature Pulse Rate 70 Pulse Rate [ Anterior Bilateral Throughout] Pulse Rate [ From Monitor] Respiratory 20 Rate Respiratory Rate [Anterior Bilateral Throughout] Blood Pressure 118/65 O2 Sat by Pulse 98 Oximetry - Neck no masses, trachea midline, no lymphadectomy - Labs 04/27/16 04:21 04/27/16 04:21 Diabetes panel 04/27/16 Range/Units 04:21 Sodium 141 (137-145) mmol/L Potassium 3.9 (3.6-5.0) mmol/L Chloride 104.9 (98-107) mmol/L Carbon Dioxide 27 (22-30) mmol/L BUN 17 (9-20) mg/dL Creatinine 0.6 L (0.8-1.5) mg/dL Glucose 187 H (75-100) mg/dL Calcium 8.0 L (8.4-10.2) mg/dL AST 18 (5-40) units/L ALT 39 (7-56) units/L Alkaline Phosphatase 103 (35-129) units/L Total Protein 6.0 L (6.3-8.2) g/dL Albumin 2.0 L (3.9-5) g/dL Calcium panel 04/27/16 Range/Units 04:21 Calcium 8.0 L (8.4-10.2) mg/dL Albumin 2.0 L (3.9-5) g/dL Pituitary panel 04/27/16 Range/Units 04:21 Sodium 141 (137-145) mmol/L Potassium 3.9 (3.6-5.0) mmol/L Chloride 104.9 (98-107) mmol/L Carbon Dioxide 27 (22-30) mmol/L BUN 17 (9-20) mg/dL Creatinine 0.6 L (0.8-1.5) mg/dL Glucose 187 H (75-100) mg/dL Calcium 8.0 L (8.4-10.2) mg/dL Adrenal panel 04/27/16 Range/Units 04:21 Sodium 141 (137-145) mmol/L Potassium 3.9 (3.6-5.0) mmol/L Chloride 104.9 (98-107) mmol/L Carbon Dioxide 27 (22-30) mmol/L BUN 17 (9-20) mg/dL Creatinine 0.6 L (0.8-1.5) mg/dL Glucose 187 H (75-100) mg/dL Calcium 8.0 L (8.4-10.2) mg/dL Total Bilirubin < 0.2 (0.1-1.2) mg/dL AST 18 (5-40) units/L ALT 39 (7-56) units/L Alkaline Phosphatase 103 (35-129) units/L Total Protein 6.0 L (6.3-8.2) g/dL Albumin 2.0 L (3.9-5) g/dL
[2016-04-28] MEDS: KEPPRA PO SCH ×3 (00:31→21:44)
[2016-04-28] MEDS: ZESTRIL PO SCH ×2 (00:32→09:36)
[2016-04-28] MEDS: PEPCID PO SCH ×3 (00:33→21:44)
[2016-04-28] MEDS: NOVOLOG SUB-Q SCH ×4 (00:33→17:43)
[2016-04-28] MEDS: NORMODYNE PO SCH ×3 (00:35→14:22)
[2016-04-28] MEDS: DUONEB 0.5 MG-3 MG/3 ML SOLN IH SCH ×4 (01:31→19:24)
[2016-04-28 05:46] LABS: ISTAT Base Excess 8; ISTAT HCO3 30.7; ISTAT PCO2 37.2 (35-45); ISTAT PH 7.524 (7.35-7.45); ISTAT PO2 80 (80-105); ISTAT SO2 97; ISTAT TCO2 32
--- NOTE | 2016-04-28 09:00 | Progress Note ---
Assessment and Plan Assessment and plan: 1. Acute respiratory failure. Patient reintubated on 04/17/16. Continue mechanical ventilation per pulmonary. Tracheostomy scheduled tentatively for . Heparin drip for now. 2. Acute CVA. CT scan revealed acute ischemic infarct in the right cerebellum. MRI reveals subacute infarct in the right cerebellar hemisphere with associated edema and mass effect as previously described. Patient also with multiple areas of acute infarct in the left occipital and frontal lobes that are most likely embolic. LIZZIE done- No thrombus but decreased flow. Cardiology recommends anticoagulation with Coumadin. 3. Hypotension. Resolved. Patient currently off pressors of Levophed. Echocardiogram revealed EF of 50-55%. 4. Encephalopathy. EEG normal. Etiology likely secondary to CVA +/- hypertension. 5. Group B strep UTI-treated 6. Accelerated hypertension. Continue antihypertensive medications 7. CAD-stable 8. Seizures-continue Keppra. EEG normal. 9. Type 2 diabetes mellitus. Glycemic control. 10. History of aortic dissection status post repair. 11. History of prosthetic aortic valve replacement. Echo with normal function on 08/2015. 12. DVT prophylaxis-on heparin drip. 13. GI prophylaxis-Pepcid 14. Oropharyngeal dysphagia. Patient failed swallow evaluation. Status post PEG placement on 04/17. The high probability of a clinically significant, sudden or life threatening deterioration of the [respiratory and neurological] system(s) required my full and direct attention, intervention and personal management. The aggregate critical care time was [32] minutes. This time is in addition to time spent performing reported procedures but includes the following: [x] Data Review and interpretation [x] Patient assessment and monitoring of vital signs [x] Documentation [x] Medication orders and management History Interval history: 60 years old -[place] male with nonobstructive CAD per recent CAD, hypertension, hyperlipidemia, bioprosthetic aortic valve replacement, chronic kidney disease, diabetes and seizure disorder who was initially admitted for metabolic encephalopathy with hypernatremia. Patient developed respiratory failure during this hospitalization on 03/27 and was intubated placed on mechanical ventilation. Patient was later extubated during his hospitalization but was reintubated on the evening of 04/16/16. Patient now remains intubated on mechanical ventilation. Patient is also status post PEG tube placement on . Patient currently intubated and on heparin drip Hospitalist Physical - Constitutional Vitals: Temp Pulse Resp BP Pulse Ox 99.3 F 91 H 18 142/78 100 04/28/16 08:00 04/28/16 08:00 04/28/16 08:00 04/28/16 07:18 04/28/16 07:18 General appearance: Present: no acute distress, other (intubated) - EENT Eyes: Present: PERRL, EOM intact ENT: hearing intact, clear oral mucosa, dentition normal - Neck Neck: Present: supple, normal ROM - Respiratory Respiratory effort: normal Respiratory: bilateral: CTA, diminished - Cardiovascular Rhythm: regular Heart Sounds: Present: S1 & S2. Absent: gallop, rub - Extremities Extremities: no ischemia, No edema, Full ROM - Abdominal General gastrointestinal: soft, non-tender, non-distended, normal bowel sounds - Integumentary Integumentary: Present: clear, warm, dry - Neurologic Neurologic: CNII-XII intact, moves all extremities Results - Labs CBC & Chem 7: 04/27/16 04:21 04/27/16 04:21 Labs: Laboratory Last Values WBC 13.1 K/mm3 (4.5-11.0) H 04/27/16 04:21 RBC 2.99 M/mm3 (3.65-5.03) L 04/27/16 04:21 Hgb 7.8 gm/dl (11.8-15.2) L 04/27/16 04:21 Hct 24.0 % (35.5-45.6) L 04/27/16 04:21 MCV 81 fl (84-94) L 04/27/16 04:21 MCH 26 pg (28-32) L 04/27/16 04:21 MCHC 32 % (32-34) 04/27/16 04:21 RDW 16.7 % (13.2-15.2) H 04/27/16 04:21 Plt Count 486 K/mm3 (140-440) H 04/27/16 04:21 Lymph % (Auto) 12.5 % (13.4-35.0) L 04/27/16 04:21 Ocean % (Auto) 7.9 % (0.0-7.3) H 04/27/16 04:21 Eos % (Auto) 1.7 % (0.0-4.3) 04/27/16 04:21 Baso % (Auto) 0.4 % (0.0-1.8) 04/27/16 04:21 Lymph # 1.6 K/mm3 (1.2-5.4) 04/27/16 04:21 Ocean # 1.0 K/mm3 (0.0-0.8) H 04/27/16 04:21 Eos # 0.2 K/mm3 (0.0-0.4) 04/27/16 04:21 Baso # 0.1 K/mm3 (0.0-0.1) 04/27/16 04:21 Add Manual Diff Complete 04/17/16 12:17 Total Counted 100 04/17/16 12:17 Seg Neutrophils % 77.5 % (40.0-70.0) H 04/27/16 04:21 Seg Neuts % (Manual) 61.0 % (40.0-70.0) 04/17/16 12:17 Band Neutrophils % 27.0 % 04/17/16 12:17 Lymphocytes % (Manual) 3.0 % (13.4-35.0) L 04/17/16 12:17 Reactive Lymphs % (Man) 0 % 04/17/16 12:17 Monocytes % (Manual) 4.0 % (0.0-7.3) 04/17/16 12:17 Eosinophils % (Manual) 0 % (0.0-4.3) 04/17/16 12:17 Basophils % (Manual) 0 % (0.0-1.8) 04/17/16 12:17 Metamyelocytes % 1.0 % 04/17/16 12:17 Myelocytes % 1.0 % 04/17/16 12:17 Promyelocytes % 3.0 % 04/17/16 12:17 Blast Cells % 0 % 04/17/16 12:17 Nucleated RBC % Not Reportable 04/17/16 12:17 Seg Neutrophils # 10.2 K/mm3 (1.8-7.7) H 04/27/16 04:21 Seg Neutrophils # Man 10.1 K/mm3 (1.8-7.7) H 04/17/16 12:17 Band Neutrophils # 4.5 K/mm3 04/17/16 12:17 Lymphocytes # (Manual) 0.5 K/mm3 (1.2-5.4) L 04/17/16 12:17 Abs React Lymphs (Man) 0.0 K/mm3 04/17/16 12:17 Monocytes # (Manual) 0.7 K/mm3 (0.0-0.8) 04/17/16 12:17 Eosinophils # (Manual) 0.0 K/mm3 (0.0-0.4) 04/17/16 12:17 Basophils # (Manual) 0.0 K/mm3 (0.0-0.1) 04/17/16 12:17 Metamyelocytes # 0.2 K/mm3 04/17/16 12:17 Myelocytes # 0.2 K/mm3 04/17/16 12:17 Promyelocytes # 0.5 K/mm3 04/17/16 12:17 Blast Cells # 0.0 K/mm3 04/17/16 12:17 WBC Morphology Not Reportable 04/17/16 12:17 Hypersegmented Neuts Not Reportable 04/17/16 12:17 Hyposegmented Neuts Not Reportable 04/17/16 12:17 Hypogranular Neuts Not Reportable 04/17/16 12:17 Smudge Cells Not Reportable 04/17/16 12:17 Toxic Granulation Not Reportable 04/17/16 12:17 Toxic Vacuolation Not Reportable 04/17/16 12:17 Dohle Bodies Not Reportable 04/17/16 12:17 Pelger-Huet Anomaly Not Reportable 04/17/16 12:17 Corina Rods Not Reportable 04/17/16 12:17 Platelet Estimate Appears normal 04/17/16 12:17 Clumped Platelets Not Reportable 04/17/16 12:17 Plt Clumps, EDTA Not Reportable 04/17/16 12:17 Large Platelets Not Reportable 04/17/16 12:17 Giant Platelets Not Reportable 04/17/16 12:17 Platelet Satelliting Not Reportable 04/17/16 12:17 Plt Morphology Comment Not Reportable 04/17/16 12:17 RBC Morphology Not Reportable 04/17/16 12:17 Dimorphic RBCs Not Reportable 04/17/16 12:17 Polychromasia Few 04/17/16 12:17 Hypochromasia Not Reportable 04/17/16 12:17 Poikilocytosis Not Reportable 04/17/16 12:17 Anisocytosis 1+ 04/17/16 12:17 Microcytosis Few 04/17/16 12:17 Macrocytosis Not Reportable 04/17/16 12:17 Spherocytes Not Reportable 04/17/16 12:17 Pappenheimer Bodies Not Reportable 04/17/16 12:17 Sickle Cells Not Reportable 04/17/16 12:17 Target Cells Not Reportable 04/17/16 12:17 Tear Drop Cells Not Reportable 04/17/16 12:17 Ovalocytes Not Reportable 04/17/16 12:17 Helmet Cells Not Reportable 04/17/16 12:17 Mcgrath-Kopperl Bodies Not Reportable 04/17/16 12:17 [place] Rings Not Reportable 04/17/16 12:17 [place] Cells Not Reportable 04/17/16 12:17 Bite Cells Not Reportable 04/17/16 12:17 Crenated Cell Not Reportable 04/17/16 12:17 Elliptocytes Not Reportable 04/17/16 12:17 Acanthocytes (Spur) Not Reportable 04/17/16 12:17 Rouleaux Not Reportable 04/17/16 12:17 Hemoglobin C Crystals Not Reportable 04/17/16 12:17 Schistocytes Not Reportable 04/17/16 12:17 Malaria parasites Not Reportable 04/17/16 12:17 Gideon Bodies Not Reportable 04/17/16 12:17 Hem Pathologist Commnt No 04/17/16 12:17 PT 15.9 Sec. (12.2-14.9) H 04/23/16 10:45 INR 1.28 (0.87-1.13) H 04/23/16 10:45 APTT 42.1 Sec. (24.2-36.6) H 04/04/16 09:55 Heparin Anti-Xa Level 0.24 U.I./ml (0.3-0.7) L 04/27/16 21:58 POC ABG pH 7.524 (7.35-7.45) H 04/28/16 04:28 POC ABG pCO2 37.2 (35-45) 04/28/16 04:28 POC ABG pO2 80 (80-105) 04/28/16 04:28 POC ABG HCO3 30.7 04/28/16 04:28 POC ABG Total CO2 32 04/28/16 04:28 POC ABG O2 Sat 97 04/28/16 04:28 POC ABG Base Excess 8 04/28/16 04:28 VBG pH 7.418 (7.320-7.420) 03/24/16 14:00 FiO2 25 % 04/28/16 04:28 Sodium 141 mmol/L (137-145) 04/27/16 04:21 Potassium 3.9 mmol/L (3.6-5.0) 04/27/16 04:21 Chloride 104.9 mmol/L (98-107) 04/27/16 04:21 Carbon Dioxide 27 mmol/L (22-30) 04/27/16 04:21 Anion Gap 13 mmol/L 04/27/16 04:21 BUN 17 mg/dL (9-20) 04/27/16 04:21 Creatinine 0.6 mg/dL (0.8-1.5) L 04/27/16 04:21 Estimated GFR > 60 ml/min 04/27/16 04:21 BUN/Creatinine Ratio 28.33 % 04/27/16 04:21 Glucose 187 mg/dL (75-100) H 04/27/16 04:21 POC Glucose 254 (70-105) H 04/28/16 05:52 Hemoglobin A1c 9.6 % (4-6) H 03/24/16 14:00 Lactic Acid 1.6 mmol/L (0.7-2.0) 04/17/16 12:17 Calcium 8.0 mg/dL (8.4-10.2) L 04/27/16 04:21 Phosphorus 2.3 mg/dL (2.5-4.5) L D 03/30/16 04:00 Magnesium 1.9 mg/dL (1.7-2.3) 03/30/16 04:00 Total Bilirubin < 0.2 mg/dL (0.1-1.2) 04/27/16 04:21 AST 18 units/L (5-40) 04/27/16 04:21 ALT 39 units/L (7-56) 04/27/16 04:21 Alkaline Phosphatase 103 units/L (35-129) 04/27/16 04:21 Lactate Dehydrogenase 460 units/L (91-180) H 03/25/16 05:56 Total Creatine Kinase 356 units/L (55-170) H 03/28/16 13:29 Troponin T < 0.010 ng/mL (0.00-0.029) 03/28/16 13:29 NT-Pro-B Natriuret Pep 897.9 pg/mL (0-900) 04/03/16 04:10 Serum Total Protein 7.1 g/dL (6.1-8.1) 03/25/16 13:00 Total Protein 6.0 g/dL (6.3-8.2) L 04/27/16 04:21 Albumin 2.0 g/dL (3.9-5) L 04/27/16 04:21 Albumin/Globulin Ratio 0.5 % 04/27/16 04:21 Nwscc-3-[id number] See scanned report 03/31/16 12:20 Qgbir-2-Gcydbocin See scanned report 03/31/16 12:20 Beta Globulins See scanned report 03/31/16 12:20 Foxa-1-Icpbseycvhchp 2.46 mg/L (<=2.51) 03/25/16 13:00 Gamma Globulins See scanned report 03/31/16 12:20 Abnorm Protein Band 1 see below (()) 03/25/16 13:00 PEP Interpretation See scanned report 03/31/16 12:20 Triglycerides 88 mg/dL (2-149) 03/24/16 17:58 Cholesterol 221 mg/dL (50-199) H 03/24/16 17:58 LDL Cholesterol Direct 146 mg/dL (50-130) H 03/24/16 17:58 HDL Cholesterol 58 mg/dL (40-59) 03/24/16 17:58 Cholesterol/HDL Ratio 3.81 % 03/24/16 17:58 Urine Color Yellow (Yellow) 03/24/16 14:27 Urine Turbidity Clear (Clear) 03/24/16 14:27 Urine pH 5.0 (5.0-7.0) 03/24/16 14:27 Ur Specific [place] 1.017 (1.003-1.030) 03/24/16 14:27 Urine Protein <15 mg/dl mg/dL (Negative) 03/24/16 14:27 Urine Glucose (UA) >=500 mg/dL (Negative) 03/24/16 14:27 Urine Ketones Neg mg/dL (Negative) 03/24/16 14:27 Urine Blood Sm (Negative) 03/24/16 14:27 Urine Nitrite Neg (Negative) 03/24/16 14:27 Urine Bilirubin Neg (Negative) 03/24/16 14:27 Urine Urobilinogen < 2.0 mg/dL (<2.0) 03/24/16 14:27 Ur Leukocyte Esterase Neg (Negative) 03/24/16 14:27 Urine WBC (Auto) 2.0 /HPF (0.0-6.0) 03/24/16 14:27 Urine RBC (Auto) < 1.0 /HPF (0.0-6.0) 03/24/16 14:27 U Epithel Cells (Auto) 4.0 /HPF (0-13.0) 03/24/16 14:27 Hyaline Casts 1 /LPF 03/24/16 14:27 Urine Mucus Few /HPF 03/24/16 14:27 Ur Random Creatinine See scanned report 03/31/16 12:20 U Random Total Protein See scanned report 03/31/16 12:20 Urine Creatinine 85.5 mg/dL (0.1-20.0) H 04/20/16 11:50 Protein/Creatinin Ratio See scanned report 03/31/16 12:20 Urine Sodium 17 mEq/L 04/20/16 11:50 U Abnormal Prot Band 1 See scanned report 03/31/16 12:20 U Abnormal Prot Band 2 See scanned report 03/31/16 12:20 U Abnormal Prot Band 3 See scanned report 03/31/16 12:20 Ketones 1.0 mg/dL (0.2-2.8) 03/24/16 14:00
[2016-04-28] MEDS: LEVEMIR SUB-Q SCH (09:35)
[2016-04-28] MEDS: CORDARONE PO SCH (09:36)
[2016-04-28] MEDS: BABY ASPIRIN PO SCH (09:37)
[2016-04-28] MEDS: NORVASC PO SCH (09:37)
--- NOTE | 2016-04-28 10:44 | Progress Note ---
Assessment and Plan Acute respiratory failure. Currently on ventilator support, not tolerating SBP for more than 2 hours on pressure support/CPAP 8 / 5 cm H2O Stroke.unchanged. No neurological improvement. AMS. No change HTN Elevated INR. 1.24, scheduled for tracheotomy Recommendations tracheotomy as scheduled Heparin and warfarin. Discussed with staff and hospital medicine to arouse this morning No further weaning of guilt tracheotomy is completed. I will start with spontaneous breathing trials once tracheotomy is secured. Continue with placement plans Discussed in detail with RT, nursing staff. No family available at the bedside. CC time 31 min of [id number] interaction with the patient and coordination of care Subjective Date of service: 04/28/16 Principal diagnosis: CVA, acute respiratory failure Interval history: Intubated nonresponsive Objective Vital Signs - 12hr 04/27/16 04/27/16 04/27/16 23:00 23:29 23:30 Temperature Pulse Rate 82 85 83 Pulse Rate [ Anterior Bilateral Throughout] Pulse Rate [ Apical] Pulse Rate [ From Monitor] Respiratory 18 14 Rate Respiratory Rate [Anterior Bilateral Throughout] Blood Pressure 142/80 142/80 147/79 O2 Sat by Pulse 99 99 99 Oximetry 04/27/16 04/28/16 04/28/16 23:52 00:00 00:30 Temperature 98.6 F Pulse Rate 83 84 Pulse Rate [ Anterior Bilateral Throughout] Pulse Rate [ 71 Apical] Pulse Rate [ 78 From Monitor] Respiratory 24 15 Rate Respiratory Rate [Anterior Bilateral Throughout] Blood Pressure 145/76 144/78 O2 Sat by Pulse 100 99 Oximetry 04/28/16 04/28/16 04/28/16 00:32 00:35 01:00 Temperature Pulse Rate 84 87 78 Pulse Rate [ Anterior Bilateral Throughout] Pulse Rate [ Apical] Pulse Rate [ From Monitor] Respiratory 15 Rate Respiratory Rate [Anterior Bilateral Throughout] Blood Pressure 145/76 144/78 142/77 O2 Sat by Pulse 99 Oximetry 04/28/16 04/28/16 04/28/16 01:30 01:32 01:47 Temperature Pulse Rate 78 Pulse Rate [ 78 79 Anterior Bilateral Throughout] Pulse Rate [ Apical] Pulse Rate [ From Monitor] Respiratory 13 Rate Respiratory 17 17 Rate [Anterior Bilateral Throughout] Blood Pressure 127/72 O2 Sat by Pulse 99 Oximetry 04/28/16 04/28/16 04/28/16 02:00 02:30 03:00 Temperature Pulse Rate 79 79 78 Pulse Rate [ Anterior Bilateral Throughout] Pulse Rate [ Apical] Pulse Rate [ From Monitor] Respiratory 20 15 15 Rate Respiratory Rate [Anterior Bilateral Throughout] Blood Pressure 133/76 134/70 134/73 O2 Sat by Pulse 99 99 99 Oximetry 04/28/16 04/28/16 04/28/16 03:32 03:52 04:00 Temperature 100.2 F H 100.2 F H Pulse Rate 79 80 Pulse Rate [ Anterior Bilateral Throughout] Pulse Rate [ 78 Apical] Pulse Rate [ 72 From Monitor] Respiratory 20 20 Rate Respiratory Rate [Anterior Bilateral Throughout] Blood Pressure 131/79 132/75 O2 Sat by Pulse 99 99 Oximetry 04/28/16 04/28/16 04/28/16 04:15 04:30 05:00 Temperature Pulse Rate 80 82 82 Pulse Rate [ Anterior Bilateral Throughout] Pulse Rate [ Apical] Pulse Rate [ From Monitor] Respiratory 18 15 Rate Respiratory Rate [Anterior Bilateral Throughout] Blood Pressure 132/75 134/74 133/75 O2 Sat by Pulse 99 99 99 Oximetry 04/28/16 04/28/16 04/28/16 05:30 06:00 06:30 Temperature Pulse Rate 83 82 82 Pulse Rate [ Anterior Bilateral Throughout] Pulse Rate [ Apical] Pulse Rate [ From Monitor] Respiratory 12 15 14 Rate Respiratory Rate [Anterior Bilateral Throughout] Blood Pressure 124/79 137/75 142/78 O2 Sat by Pulse 99 99 100 Oximetry 04/28/16 04/28/16 04/28/16 06:32 07:00 07:18 Temperature Pulse Rate 83 84 82 Pulse Rate [ Anterior Bilateral Throughout] Pulse Rate [ Apical] Pulse Rate [ From Monitor] Respiratory 17 13 Rate Respiratory Rate [Anterior Bilateral Throughout] Blood Pressure 142/78 141/80 142/78 O2 Sat by Pulse 100 99 100 Oximetry 04/28/16 04/28/16 04/28/16 07:30 08:00 08:30 Temperature 99.3 F Pulse Rate 86 91 H 94 H Pulse Rate [ 91 H Anterior Bilateral Throughout] Pulse Rate [ Apical] Pulse Rate [ From Monitor] Respiratory 29 H 29 H 14 Rate Respiratory 18 Rate [Anterior Bilateral Throughout] Blood Pressure 138/82 148/85 145/90 O2 Sat by Pulse 99 98 99 Oximetry 04/28/16 04/28/16 04/28/16 09:00 09:35 09:36 Temperature Pulse Rate 93 H 95 H 95 H Pulse Rate [ Anterior Bilateral Throughout] Pulse Rate [ Apical] Pulse Rate [ From Monitor] Respiratory 20 Rate Respiratory Rate [Anterior Bilateral Throughout] Blood Pressure 135/83 143/89 143/89 O2 Sat by Pulse 98 Oximetry 04/28/16 04/28/16 09:37 10:08 Temperature Pulse Rate 95 H Pulse Rate [ Anterior Bilateral Throughout] Pulse Rate [ Apical] Pulse Rate [ From Monitor] Respiratory Rate Respiratory Rate [Anterior Bilateral Throughout] Blood Pressure 143/89 143/89 O2 Sat by Pulse 98 Oximetry Constitutional: no acute distress, other (awake but not following commands) Eyes: non-icteric ENT: other (orally intubated ) Neck: supple Effort: normal Ascultation: Bilateral: clear, rhonchi (occasional) Percussion: Bilateral: not dull Cardiovascular: regular rate and rhythm Gastrointestinal: normoactive bowel sounds, soft, non-tender Extremities: no cyanosis, no edema Neurologic: other (GCS 4) CBC and BMP: 04/27/16 04:21 04/27/16 04:21 ABG, PT/INR, D-dimer: ABG POC ABG pH 7.524 (7.35-7.45) H 04/28/16 04:28 POC ABG pCO2 37.2 (35-45) 04/28/16 04:28 POC ABG pO2 80 (80-105) 04/28/16 04:28 POC ABG HCO3 30.7 04/28/16 04:28 POC ABG Total CO2 32 04/28/16 04:28 POC ABG O2 Sat 97 04/28/16 04:28 PT/INR, D-dimer PT 15.9 Sec. (12.2-14.9) H 04/23/16 10:45 INR 1.28 (0.87-1.13) H 04/23/16 10:45 Abnormal lab findings: Abnormal Labs 03/24/16 03/24/16 03/24/16 17:58 20:25 23:23 WBC RBC Hgb Hct MCV MCH MCHC RDW Plt Count Lymph % (Auto) [place] % (Auto) Lymph # [place] # Baso # Seg Neutrophils % Seg Neuts % (Manual) Lymphocytes % (Manual) Seg Neutrophils # Seg Neutrophils # Man Lymphocytes # (Manual) Monocytes # (Manual) PT INR APTT Heparin Anti-Xa Level POC ABG pH POC ABG pCO2 POC ABG pO2 Sodium 169 H* Potassium 3.5 L Chloride 130.3 H Carbon Dioxide BUN 28 H Creatinine 1.8 H Glucose POC Glucose 112 H Calcium Phosphorus Lactate Dehydrogenase Total Creatine Kinase NT-Pro-B Natriuret Pep Total Protein Albumin Wmtgm-8-Birjpqrfp Zhvpl-8-Vpaorcjrr Beta Globulins PEP Interpretation Cholesterol 221 H LDL Cholesterol Direct 146 H Urine Creatinine 03/25/16 03/25/16 03/25/16 05:56 05:56 05:56 WBC 21.3 H RBC 6.32 H Hgb 16.7 H Hct 52.7 H MCV 83 L MCH 27 L MCHC RDW Plt Count Lymph % (Auto) [place] % (Auto) Lymph # [place] # Baso # Seg Neutrophils % Seg Neuts % (Manual) 91.0 H Lymphocytes % (Manual) 4.0 L Seg Neutrophils # Seg Neutrophils # Man 19.4 H Lymphocytes # (Manual) 0.9 L Monocytes # (Manual) 0.9 H PT INR APTT Heparin Anti-Xa Level POC ABG pH POC ABG pCO2 POC ABG pO2 Sodium 172 H* Potassium 3.5 L Chloride 130.4 H Carbon Dioxide BUN 29 H Creatinine 1.8 H Glucose 187 H POC Glucose Calcium Phosphorus Lactate Dehydrogenase 460 H Total Creatine Kinase NT-Pro-B Natriuret Pep Total Protein Albumin Pkqxe-0-Fijjnmnrk Ftvls-9-Ltdsgaawy Beta Globulins PEP Interpretation Cholesterol LDL Cholesterol Direct Urine Creatinine 03/25/16 03/25/16 03/25/16 07:55 12:19 13:00 WBC RBC Hgb Hct MCV MCH MCHC RDW Plt Count Lymph % (Auto) [place] % (Auto) Lymph # [place] # Baso # Seg Neutrophils % Seg Neuts % (Manual) Lymphocytes % (Manual) Seg Neutrophils # Seg Neutrophils # Man Lymphocytes # (Manual) Monocytes # (Manual) PT INR APTT Heparin Anti-Xa Level POC ABG pH POC ABG pCO2 POC ABG pO2 Sodium Potassium Chloride Carbon Dioxide BUN Creatinine Glucose POC Glucose 231 H 314 H Calcium Phosphorus Lactate Dehydrogenase Total Creatine Kinase NT-Pro-B Natriuret Pep Total Protein Albumin 3.4 L Bkjyo-5-Iaqjeqtjc 0.4 H Naiwp-2-Epmgewhfb 1.1 H Beta Globulins 0.6 H PEP Interpretation see below H Cholesterol LDL Cholesterol Direct Urine Creatinine 03/25/16 03/25/16 03/26/16 16:41 22:45 08:32 WBC RBC Hgb Hct MCV MCH MCHC RDW Plt Count Lymph % (Auto) [place] % (Auto) Lymph # [place] # Baso # Seg Neutrophils % Seg Neuts % (Manual) Lymphocytes % (Manual) Seg Neutrophils # Seg Neutrophils # Man Lymphocytes # (Manual) Monocytes # (Manual) PT INR APTT Heparin Anti-Xa Level POC ABG pH POC ABG pCO2 POC ABG pO2 Sodium Potassium Chloride Carbon Dioxide BUN Creatinine Glucose POC Glucose 444 H 326 H 360 H Calcium Phosphorus Lactate Dehydrogenase Total Creatine Kinase NT-Pro-B Natriuret Pep Total Protein Albumin Kjlgr-8-Okzimcbnq Phlnf-6-Mpkeoqrqn Beta Globulins PEP Interpretation Cholesterol LDL Cholesterol Direct Urine Creatinine 03/26/16 03/26/16 03/26/16 12:38 15:33 15:47 WBC RBC Hgb Hct MCV MCH MCHC RDW Plt Count Lymph % (Auto) [place] % (Auto) Lymph # [place] # Baso # Seg Neutrophils % Seg Neuts % (Manual) Lymphocytes % (Manual) Seg Neutrophils # Seg Neutrophils # Man Lymphocytes # (Manual) Monocytes # (Manual) PT INR APTT Heparin Anti-Xa Level POC ABG pH 7.511 H POC ABG pCO2 26.5 L POC ABG pO2 70 L Sodium Potassium Chloride Carbon Dioxide BUN Creatinine Glucose POC Glucose 280 H 174 H Calcium Phosphorus Lactate Dehydrogenase Total Creatine Kinase NT-Pro-B Natriuret Pep Total Protein Albumin Frgic-5-Kkhfrcrec Otypk-6-Gmxdbfrik Beta Globulins PEP Interpretation Cholesterol LDL Cholesterol Direct Urine Creatinine 03/26/16 03/26/16 03/26/16 16:47 16:47 18:51 WBC 14.0 H RBC 5.17 H Hgb Hct MCV MCH 26 L MCHC 31 L RDW Plt Count 139 L Lymph % (Auto) [place] % (Auto) Lymph # [place] # Baso # Seg Neutrophils % Seg Neuts % (Manual) Lymphocytes % (Manual) Seg Neutrophils # Seg Neutrophils # Man Lymphocytes # (Manual) Monocytes # (Manual) PT INR APTT Heparin Anti-Xa Level POC ABG pH POC ABG pCO2 33.9 L POC ABG pO2 150 H Sodium 164 H* Potassium 3.4 L Chloride 128.5 H Carbon Dioxide BUN 30 H Creatinine 2.2 H Glucose 121 H POC Glucose Calcium 8.1 L Phosphorus Lactate Dehydrogenase Total Creatine Kinase NT-Pro-B Natriuret Pep Total Protein Albumin Mjdur-5-Hpvosdvle Oikdi-2-Sstytvbsj Beta Globulins PEP Interpretation Cholesterol LDL Cholesterol Direct Urine Creatinine 03/27/16 03/27/16 03/27/16 02:19 05:47 06:02 WBC RBC Hgb Hct MCV MCH MCHC RDW Plt Count Lymph % (Auto) [place] % (Auto) Lymph # [place] # Baso # Seg Neutrophils % Seg Neuts % (Manual) Lymphocytes % (Manual) Seg Neutrophils # Seg Neutrophils # Man Lymphocytes # (Manual) Monocytes # (Manual) PT INR APTT Heparin Anti-Xa Level POC ABG pH POC ABG pCO2 27.3 L 30.3 L POC ABG pO2 50 L 112 H Sodium 158 H Potassium Chloride 126.7 H Carbon Dioxide 20 L BUN 25 H Creatinine 1.7 H Glucose POC Glucose Calcium 7.0 L Phosphorus Lactate Dehydrogenase Total Creatine Kinase NT-Pro-B Natriuret Pep Total Protein Albumin Hnnby-6-Gwlsxmhbk Xycgf-0-Ttdbasbtw Beta Globulins PEP Interpretation Cholesterol LDL Cholesterol Direct Urine Creatinine 03/27/16 03/27/16 03/27/16 07:51 09:20 11:45 WBC 14.2 H RBC Hgb Hct MCV 83 L MCH 27 L MCHC RDW Plt Count 113 L Lymph % (Auto) [place] % (Auto) Lymph # [place] # Baso # Seg Neutrophils % Seg Neuts % (Manual) Lymphocytes % (Manual) Seg Neutrophils # Seg Neutrophils # Man Lymphocytes # (Manual) Monocytes # (Manual) PT INR APTT Heparin Anti-Xa Level POC ABG pH POC ABG pCO2 POC ABG pO2 Sodium Potassium Chloride Carbon Dioxide BUN Creatinine Glucose POC Glucose 124 H 241 H Calcium Phosphorus Lactate Dehydrogenase Total Creatine Kinase NT-Pro-B Natriuret Pep Total Protein Albumin Avpeb-1-Jcdiniasg Ssvyv-1-Pyhqweoqq Beta Globulins PEP Interpretation Cholesterol LDL Cholesterol Direct Urine Creatinine 03/27/16 03/27/16 03/28/16 16:39 22:03 03:29 WBC RBC Hgb Hct MCV MCH MCHC RDW Plt Count Lymph % (Auto) [place] % (Auto) Lymph # [place] # Baso # Seg Neutrophils % Seg Neuts % (Manual) Lymphocytes % (Manual) Seg Neutrophils # Seg Neutrophils # Man Lymphocytes # (Manual) Monocytes # (Manual) PT INR APTT Heparin Anti-Xa Level POC ABG pH POC ABG pCO2 POC ABG pO2 Sodium Potassium Chloride Carbon Dioxide BUN Creatinine Glucose POC Glucose 266 H 167 H 241 H Calcium Phosphorus Lactate Dehydrogenase Total Creatine Kinase NT-Pro-B Natriuret Pep Total Protein Albumin Rswev-9-Iyzslmkmb Aoyhl-0-Maqcbvgeg Beta Globulins PEP Interpretation Cholesterol LDL Cholesterol Direct Urine Creatinine 03/28/16 03/28/16 03/28/16 05:00 05:00 05:00 WBC RBC Hgb Hct MCV 83 L MCH 27 L MCHC RDW Plt Count 106 L Lymph % (Auto) [place] % (Auto) 10.1 H Lymph # [place] # 1.0 H Baso # Seg Neutrophils % 75.1 H Seg Neuts % (Manual) Lymphocytes % (Manual) Seg Neutrophils # Seg Neutrophils # Man Lymphocytes # (Manual) Monocytes # (Manual) PT INR APTT Heparin Anti-Xa Level POC ABG pH POC ABG pCO2 POC ABG pO2 Sodium 147 H D Potassium 3.1 L D Chloride 112.3 H Carbon Dioxide 21 L BUN Creatinine Glucose 208 H POC Glucose Calcium 7.0 L Phosphorus 2.2 L Lactate Dehydrogenase Total Creatine Kinase NT-Pro-B Natriuret Pep Total Protein Albumin Mtedj-2-Bsgeishjp Njgnb-2-Zfnlxlmfx Beta Globulins PEP Interpretation Cholesterol LDL Cholesterol Direct Urine Creatinine 03/28/16 03/28/16 03/28/16 05:14 08:41 10:56 WBC RBC Hgb Hct MCV MCH MCHC RDW Plt Count Lymph % (Auto) [place] % (Auto) Lymph # [place] # Baso # Seg Neutrophils % Seg Neuts % (Manual) Lymphocytes % (Manual) Seg Neutrophils # Seg Neutrophils # Man Lymphocytes # (Manual) Monocytes # (Manual) PT INR APTT Heparin Anti-Xa Level POC ABG pH 7.457 H POC ABG pCO2 29.7 L 27.7 L POC ABG pO2 Sodium Potassium Chloride Carbon Dioxide BUN Creatinine Glucose POC Glucose 228 H Calcium Phosphorus Lactate Dehydrogenase Total Creatine Kinase NT-Pro-B Natriuret Pep Total Protein Albumin Fugqe-0-Chlkzjzwj Vwwrr-7-Qmhoxpinu Beta Globulins PEP Interpretation Cholesterol LDL Cholesterol Direct Urine Creatinine 03/28/16 03/28/16 03/28/16 11:37 13:29 16:22 WBC RBC Hgb Hct MCV MCH MCHC RDW Plt Count Lymph % (Auto) [place] % (Auto) Lymph # [place] # Baso # Seg Neutrophils % Seg Neuts % (Manual) Lymphocytes % (Manual) Seg Neutrophils # Seg Neutrophils # Man Lymphocytes # (Manual) Monocytes # (Manual) PT INR APTT Heparin Anti-Xa Level POC ABG pH POC ABG pCO2 POC ABG pO2 Sodium Potassium Chloride Carbon Dioxide BUN Creatinine Glucose POC Glucose 226 H 200 H Calcium Phosphorus Lactate Dehydrogenase Total Creatine Kinase 356 H NT-Pro-B Natriuret Pep Total Protein Albumin Wmktf-4-Azbqipevk Dvuoe-6-Nrcazhuja Beta Globulins PEP Interpretation Cholesterol LDL Cholesterol Direct Urine Creatinine 03/28/16 03/29/16 03/29/16 21:48 04:50 04:50 WBC RBC Hgb 11.5 L Hct 35.3 L MCV 81 L MCH 26 L MCHC RDW Plt Count 97 L Lymph % (Auto) [place] % (Auto) 11.7 H Lymph # [place] # 1.1 H Baso # Seg Neutrophils % Seg Neuts % (Manual) Lymphocytes % (Manual) Seg Neutrophils # Seg Neutrophils # Man Lymphocytes # (Manual) Monocytes # (Manual) PT INR APTT Heparin Anti-Xa Level POC ABG pH POC ABG pCO2 POC ABG pO2 Sodium 136 L D Potassium 3.3 L Chloride Carbon Dioxide 20 L BUN Creatinine Glucose 386 H POC Glucose 188 H Calcium 6.8 L Phosphorus 1.6 L D Lactate Dehydrogenase Total Creatine Kinase NT-Pro-B Natriuret Pep Total Protein Albumin Uvsnc-7-Qrdsbzdff Ebbfk-2-Vvkznirlf Beta Globulins PEP Interpretation Cholesterol LDL Cholesterol Direct Urine Creatinine 03/29/16 03/29/16 03/29/16 08:10 11:12 16:09 WBC RBC Hgb Hct MCV MCH MCHC RDW Plt Count Lymph % (Auto) [place] % (Auto) Lymph # [place] # Baso # Seg Neutrophils % Seg Neuts % (Manual) Lymphocytes % (Manual) Seg Neutrophils # Seg Neutrophils # Man Lymphocytes # (Manual) Monocytes # (Manual) PT INR APTT Heparin Anti-Xa Level POC ABG pH POC ABG pCO2 POC ABG pO2 Sodium Potassium Chloride Carbon Dioxide BUN Creatinine Glucose POC Glucose 230 H 180 H 46 L Calcium Phosphorus Lactate Dehydrogenase Total Creatine Kinase NT-Pro-B Natriuret Pep Total Protein Albumin Swuvl-3-Xbrlnvezl Zrogw-8-Efyldeqcb Beta Globulins PEP Interpretation Cholesterol LDL Cholesterol Direct Urine Creatinine 03/29/16 03/29/16 03/30/16 16:12 18:15 02:53 WBC RBC Hgb Hct MCV MCH MCHC RDW Plt Count Lymph % (Auto) [place] % (Auto) Lymph # [place] # Baso # Seg Neutrophils % Seg Neuts % (Manual) Lymphocytes % (Manual) Seg Neutrophils # Seg Neutrophils # Man Lymphocytes # (Manual) Monocytes # (Manual) PT INR APTT Heparin Anti-Xa Level POC ABG pH POC ABG pCO2 POC ABG pO2 Sodium Potassium Chloride Carbon Dioxide BUN Creatinine Glucose POC Glucose 52 L 118 H 130 H Calcium Phosphorus Lactate Dehydrogenase Total Creatine Kinase NT-Pro-B Natriuret Pep Total Protein Albumin Ghohc-0-Hwruvbzvb Hjdhu-2-Epnxdlsvc Beta Globulins PEP Interpretation Cholesterol LDL Cholesterol Direct Urine Creatinine 03/30/16 03/30/16 03/30/16 04:00 04:00 05:29 WBC RBC Hgb Hct MCV 81 L MCH 26 L MCHC RDW Plt Count 116 L Lymph % (Auto) 10.8 L [place] % (Auto) 13.1 H Lymph # 1.0 L [place] # 1.3 H Baso # Seg Neutrophils % 74.2 H Seg Neuts % (Manual) Lymphocytes % (Manual) Seg Neutrophils # Seg Neutrophils # Man Lymphocytes # (Manual) Monocytes # (Manual) PT INR APTT Heparin Anti-Xa Level POC ABG pH 7.522 H POC ABG pCO2 22.7 L POC ABG pO2 137 H Sodium 147 H D Potassium Chloride 115.5 H Carbon Dioxide 20 L BUN Creatinine Glucose 116 H POC Glucose Calcium 7.6 L Phosphorus 2.3 L D Lactate Dehydrogenase Total Creatine Kinase NT-Pro-B Natriuret Pep Total Protein Albumin Pnqqd-9-Lcmmierev Bqcpz-1-Iifvenhvh Beta Globulins PEP Interpretation Cholesterol LDL Cholesterol Direct Urine Creatinine 03/30/16 03/30/16 03/30/16 05:47 08:05 08:59 WBC RBC Hgb Hct MCV MCH MCHC RDW Plt Count Lymph % (Auto) [place] % (Auto) Lymph # [place] # Baso # Seg Neutrophils % Seg Neuts % (Manual) Lymphocytes % (Manual) Seg Neutrophils # Seg Neutrophils # Man Lymphocytes # (Manual) Monocytes # (Manual) PT INR APTT Heparin Anti-Xa Level POC ABG pH POC ABG pCO2 26.2 L POC ABG pO2 115 H Sodium Potassium Chloride Carbon Dioxide BUN Creatinine Glucose POC Glucose 138 H 171 H Calcium Phosphorus Lactate Dehydrogenase Total Creatine Kinase NT-Pro-B Natriuret Pep Total Protein Albumin Shvue-6-Zhlewmrse Fvwba-1-Uzmzuauyk Beta Globulins PEP Interpretation Cholesterol LDL Cholesterol Direct Urine Creatinine 03/30/16 03/30/16 03/30/16 12:11 12:11 16:39 WBC RBC Hgb Hct MCV MCH MCHC RDW Plt Count Lymph % (Auto) [place] % (Auto) Lymph # [place] # Baso # Seg Neutrophils % Seg Neuts % (Manual) Lymphocytes % (Manual) Seg Neutrophils # Seg Neutrophils # Man Lymphocytes # (Manual) Monocytes # (Manual) PT INR APTT Heparin Anti-Xa Level POC ABG pH 7.476 H POC ABG pCO2 29.0 L POC ABG pO2 Sodium Potassium Chloride Carbon Dioxide BUN Creatinine Glucose POC Glucose 142 H 59 L Calcium Phosphorus Lactate Dehydrogenase Total Creatine Kinase NT-Pro-B Natriuret Pep Total Protein Albumin Yjzsr-6-Wyunddcft Lzpup-6-Bowhsdupp Beta Globulins PEP Interpretation Cholesterol LDL Cholesterol Direct Urine Creatinine 03/30/16 03/30/16 03/31/16 18:41 21:59 05:02 WBC RBC Hgb Hct MCV MCH MCHC RDW Plt Count Lymph % (Auto) [place] % (Auto) Lymph # [place] # Baso # Seg Neutrophils % Seg Neuts % (Manual) Lymphocytes % (Manual) Seg Neutrophils # Seg Neutrophils # Man Lymphocytes # (Manual) Monocytes # (Manual) PT INR APTT Heparin Anti-Xa Level POC ABG pH 7.519 H POC ABG pCO2 21.8 L POC ABG pO2 142 H Sodium Potassium Chloride Carbon Dioxide BUN Creatinine Glucose POC Glucose 145 H 154 H Calcium Phosphorus Lactate Dehydrogenase Total Creatine Kinase NT-Pro-B Natriuret Pep Total Protein Albumin Wgcnx-5-Aenobvfpd Gajij-5-Eqxdeavyw Beta Globulins PEP Interpretation Cholesterol LDL Cholesterol Direct Urine Creatinine 03/31/16 03/31/16 03/31/16 05:15 05:15 05:15 WBC 13.4 H RBC 5.21 H Hgb Hct MCV 81 L MCH 26 L MCHC RDW Plt Count Lymph % (Auto) 9.5 L [place] % (Auto) 14.0 H Lymph # [place] # 1.9 H Baso # Seg Neutrophils % 75.0 H Seg Neuts % (Manual) Lymphocytes % (Manual) Seg Neutrophils # 10.1 H Seg Neutrophils # Man Lymphocytes # (Manual) Monocytes # (Manual) PT INR APTT Heparin Anti-Xa Level POC ABG pH POC ABG pCO2 POC ABG pO2 Sodium Potassium Chloride 108.5 H Carbon Dioxide 19 L BUN Creatinine Glucose 188 H POC Glucose Calcium Phosphorus Lactate Dehydrogenase Total Creatine Kinase NT-Pro-B Natriuret Pep 1089 H Total Protein Albumin Qaigl-3-Sqqaryyjw Cqgjc-3-Nsymyrghy Beta Globulins PEP Interpretation Cholesterol LDL Cholesterol Direct Urine Creatinine 03/31/16 03/31/16 03/31/16 07:23 11:12 15:20 WBC RBC Hgb Hct MCV MCH MCHC RDW Plt Count Lymph % (Auto) [place] % (Auto) Lymph # [place] # Baso # Seg Neutrophils % Seg Neuts % (Manual) Lymphocytes % (Manual) Seg Neutrophils # Seg Neutrophils # Man Lymphocytes # (Manual) Monocytes # (Manual) PT INR APTT Heparin Anti-Xa Level POC ABG pH POC ABG pCO2 POC ABG pO2 Sodium Potassium Chloride Carbon Dioxide BUN Creatinine Glucose POC Glucose 233 H 228 H 208 H Calcium Phosphorus Lactate Dehydrogenase Total Creatine Kinase NT-Pro-B Natriuret Pep Total Protein Albumin Ywplc-0-Eyihmgaof Xngtp-2-Iosefhjew Beta Globulins PEP Interpretation Cholesterol LDL Cholesterol Direct Urine Creatinine 03/31/16 04/01/16 04/01/16 21:27 04:41 05:35 WBC 12.1 H RBC Hgb Hct MCV 81 L MCH 26 L MCHC RDW Plt Count Lymph % (Auto) 8.5 L [place] % (Auto) 14.0 H Lymph # 1.0 L [place] # 1.7 H Baso # Seg Neutrophils % 76.2 H Seg Neuts % (Manual) Lymphocytes % (Manual) Seg Neutrophils # 9.2 H Seg Neutrophils # Man Lymphocytes # (Manual) Monocytes # (Manual) PT INR APTT Heparin Anti-Xa Level POC ABG pH 7.455 H POC ABG pCO2 31.0 L POC ABG pO2 Sodium Potassium Chloride Carbon Dioxide BUN Creatinine Glucose POC Glucose 162 H Calcium Phosphorus Lactate Dehydrogenase Total Creatine Kinase NT-Pro-B Natriuret Pep Total Protein Albumin Jgnem-6-Fvznmayhc Tdtvf-7-Czsjwhucw Beta Globulins PEP Interpretation Cholesterol LDL Cholesterol Direct Urine Creatinine 04/01/16 04/01/16 04/01/16 05:35 08:44 12:49 WBC RBC Hgb Hct MCV MCH MCHC RDW Plt Count Lymph % (Auto) [place] % (Auto) Lymph # [place] # Baso # Seg Neutrophils % Seg Neuts % (Manual) Lymphocytes % (Manual) Seg Neutrophils # Seg Neutrophils # Man Lymphocytes # (Manual) Monocytes # (Manual) PT INR APTT Heparin Anti-Xa Level POC ABG pH POC ABG pCO2 POC ABG pO2 Sodium Potassium Chloride Carbon Dioxide BUN Creatinine Glucose 256 H POC Glucose 257 H 279 H Calcium 8.0 L Phosphorus Lactate Dehydrogenase Total Creatine Kinase NT-Pro-B Natriuret Pep 1205 H Total Protein Albumin Dqcyk-9-Tbfrthrqo Nzymz-8-Nqcdmnejo Beta Globulins PEP Interpretation Cholesterol LDL Cholesterol Direct Urine Creatinine 04/01/16 04/02/16 04/02/16 18:12 00:42 04:17 WBC RBC Hgb Hct MCV MCH MCHC RDW Plt Count Lymph % (Auto) [place] % (Auto) Lymph # [place] # Baso # Seg Neutrophils % Seg Neuts % (Manual) Lymphocytes % (Manual) Seg Neutrophils # Seg Neutrophils # Man Lymphocytes # (Manual) Monocytes # (Manual) PT INR APTT Heparin Anti-Xa Level POC ABG pH 7.582 H POC ABG pCO2 26.8 L POC ABG pO2 Sodium Potassium Chloride Carbon Dioxide BUN Creatinine Glucose POC Glucose 168 H 282 H Calcium Phosphorus Lactate Dehydrogenase Total Creatine Kinase NT-Pro-B Natriuret Pep Total Protein Albumin Uhyri-5-Fyfzneqtq Ijzuj-8-Ygugvkjse Beta Globulins PEP Interpretation Cholesterol LDL Cholesterol Direct Urine Creatinine 04/02/16 04/02/16 04/02/16 05:00 05:00 06:27 WBC 12.4 H RBC Hgb Hct MCV 81 L MCH 26 L MCHC RDW Plt Count Lymph % (Auto) 6.4 L [place] % (Auto) 13.3 H Lymph # 0.8 L [place] # 1.7 H Baso # Seg Neutrophils % 79.4 H Seg Neuts % (Manual) Lymphocytes % (Manual) Seg Neutrophils # 9.9 H Seg Neutrophils # Man Lymphocytes # (Manual) Monocytes # (Manual) PT INR APTT Heparin Anti-Xa Level POC ABG pH POC ABG pCO2 POC ABG pO2 Sodium 146 H Potassium Chloride Carbon Dioxide BUN Creatinine Glucose 334 H POC Glucose 317 H Calcium 8.0 L Phosphorus Lactate Dehydrogenase Total Creatine Kinase NT-Pro-B Natriuret Pep Total Protein Albumin Gnhmd-3-[id number] Digxh-7-Cqihvvvyv Beta Globulins PEP Interpretation Cholesterol LDL Cholesterol Direct Urine Creatinine 04/02/16 04/02/16 04/02/16 11:51 13:10 17:24 WBC RBC Hgb Hct MCV MCH MCHC RDW Plt Count Lymph % (Auto) [place] % (Auto) Lymph # [place] # Baso # Seg Neutrophils % Seg Neuts % (Manual) Lymphocytes % (Manual) Seg Neutrophils # Seg Neutrophils # Man Lymphocytes # (Manual) Monocytes # (Manual) PT INR APTT Heparin Anti-Xa Level POC ABG pH 7.518 H POC ABG pCO2 POC ABG pO2 Sodium Potassium Chloride Carbon Dioxide BUN Creatinine Glucose POC Glucose 278 H 195 H Calcium Phosphorus Lactate Dehydrogenase Total Creatine Kinase NT-Pro-B Natriuret Pep Total Protein Albumin Tcigt-6-Yzftwbggw Jszqy-4-Xtvabqbdh Beta Globulins PEP Interpretation Cholesterol LDL Cholesterol Direct Urine Creatinine 04/03/16 04/03/16 04/03/16 00:18 04:10 04:10 WBC 14.3 H RBC Hgb Hct MCV 81 L MCH 26 L MCHC RDW Plt Count Lymph % (Auto) 9.0 L [place] % (Auto) 10.7 H Lymph # [place] # 1.5 H Baso # 0.2 H Seg Neutrophils % 78.5 H Seg Neuts % (Manual) Lymphocytes % (Manual) Seg Neutrophils # 11.3 H Seg Neutrophils # Man Lymphocytes # (Manual) Monocytes # (Manual) PT INR APTT Heparin Anti-Xa Level POC ABG pH POC ABG pCO2 POC ABG pO2 Sodium 148 H Potassium Chloride 108.1 H Carbon Dioxide BUN 21 H Creatinine Glucose 227 H POC Glucose 144 H Calcium 8.2 L Phosphorus Lactate Dehydrogenase Total Creatine Kinase NT-Pro-B Natriuret Pep Total Protein Albumin Pejtu-5-Bitkhurwm Yvcfo-2-Jkgiqmwyw Beta Globulins PEP Interpretation Cholesterol LDL Cholesterol Direct Urine Creatinine 04/03/16 04/03/16 04/04/16 11:14 17:10 04:00 WBC 14.5 H RBC Hgb Hct MCV 81 L MCH 26 L MCHC RDW Plt Count Lymph % (Auto) 7.2 L [place] % (Auto) 7.6 H Lymph # 1.0 L [place] # 1.1 H Baso # Seg Neutrophils % 84.5 H Seg Neuts % (Manual) Lymphocytes % (Manual) Seg Neutrophils # 12.3 H Seg Neutrophils # Man Lymphocytes # (Manual) Monocytes # (Manual) PT INR APTT Heparin Anti-Xa Level POC ABG pH POC ABG pCO2 POC ABG pO2 Sodium Potassium Chloride Carbon Dioxide BUN Creatinine Glucose POC Glucose 267 H 212 H Calcium Phosphorus Lactate Dehydrogenase Total Creatine Kinase NT-Pro-B Natriuret Pep Total Protein Albumin Talvs-3-Ssytalajg Ufiei-5-Hkuhpfbqa Beta Globulins PEP Interpretation Cholesterol LDL Cholesterol Direct Urine Creatinine 04/04/16 04/04/16 04/04/16 05:00 09:55 09:55 WBC RBC Hgb 11.5 L Hct MCV MCH MCHC RDW Plt Count Lymph % (Auto) [place] % (Auto) Lymph # [place] # Baso # Seg Neutrophils % Seg Neuts % (Manual) Lymphocytes % (Manual) Seg Neutrophils # Seg Neutrophils # Man Lymphocytes # (Manual) Monocytes # (Manual) PT INR APTT 42.1 H Heparin Anti-Xa Level POC ABG pH POC ABG pCO2 POC ABG pO2 Sodium 146 H Potassium Chloride Carbon Dioxide BUN 22 H Creatinine Glucose 128 H POC Glucose Calcium Phosphorus Lactate Dehydrogenase Total Creatine Kinase NT-Pro-B Natriuret Pep Total Protein Albumin Ahdnp-7-Dmegmfhod Moynv-7-Viuxvkgga Beta Globulins PEP Interpretation Cholesterol LDL Cholesterol Direct Urine Creatinine 04/04/16 04/04/16 04/04/16 11:45 17:49 17:55 WBC RBC Hgb Hct MCV MCH MCHC RDW Plt Count Lymph % (Auto) [place] % (Auto) Lymph # [place] # Baso # Seg Neutrophils % Seg Neuts % (Manual) Lymphocytes % (Manual) Seg Neutrophils # Seg Neutrophils # Man Lymphocytes # (Manual) Monocytes # (Manual) PT INR APTT Heparin Anti-Xa Level 1.19 H POC ABG pH POC ABG pCO2 POC ABG pO2 Sodium Potassium Chloride Carbon Dioxide BUN Creatinine Glucose POC Glucose 231 H 186 H Calcium Phosphorus Lactate Dehydrogenase Total Creatine Kinase NT-Pro-B Natriuret Pep Total Protein Albumin Kpljp-8-Xuhecnjae Kerab-6-Ytugbasdo Beta Globulins PEP Interpretation Cholesterol LDL Cholesterol Direct Urine Creatinine 04/05/16 04/05/16 04/05/16 00:35 05:32 05:42 WBC RBC Hgb Hct MCV MCH MCHC RDW Plt Count Lymph % (Auto) [place] % (Auto) Lymph # [place] # Baso # Seg Neutrophils % Seg Neuts % (Manual) Lymphocytes % (Manual) Seg Neutrophils # Seg Neutrophils # Man Lymphocytes # (Manual) Monocytes # (Manual) PT INR APTT Heparin Anti-Xa Level POC ABG pH 7.491 H POC ABG pCO2 POC ABG pO2 Sodium Potassium Chloride Carbon Dioxide BUN Creatinine Glucose POC Glucose 192 H 242 H Calcium Phosphorus Lactate Dehydrogenase Total Creatine Kinase NT-Pro-B Natriuret Pep Total Protein Albumin Mukyh-7-Azwailbeo Ahazy-7-Dogtvjavg Beta Globulins PEP Interpretation Cholesterol LDL Cholesterol Direct Urine Creatinine 04/05/16 04/05/16 04/05/16 06:20 06:20 12:19 WBC 13.9 H RBC Hgb 11.6 L Hct MCV 81 L MCH 26 L MCHC RDW Plt Count Lymph % (Auto) 9.6 L [place] % (Auto) 8.7 H Lymph # [place] # 1.2 H Baso # Seg Neutrophils % 80.9 H Seg Neuts % (Manual) Lymphocytes % (Manual) Seg Neutrophils # 11.3 H Seg Neutrophils # Man Lymphocytes # (Manual) Monocytes # (Manual) PT INR APTT Heparin Anti-Xa Level POC ABG pH POC ABG pCO2 POC ABG pO2 Sodium 148 H Potassium Chloride Carbon Dioxide BUN 23 H Creatinine Glucose 242 H POC Glucose 187 H Calcium Phosphorus Lactate Dehydrogenase Total Creatine Kinase NT-Pro-B Natriuret Pep Total Protein Albumin Kwjlu-6-Znvhumxun Aolxa-5-Sfdppusjp Beta Globulins PEP Interpretation Cholesterol LDL Cholesterol Direct Urine Creatinine 04/05/16 04/05/16 04/06/16 17:10 23:45 05:23 WBC 13.0 H RBC Hgb Hct MCV 82 L MCH 26 L MCHC 31 L RDW Plt Count Lymph % (Auto) 6.7 L [place] % (Auto) 8.3 H Lymph # 0.9 L [place] # 1.1 H Baso # Seg Neutrophils % 84.6 H Seg Neuts % (Manual) Lymphocytes % (Manual) Seg Neutrophils # 11.0 H Seg Neutrophils # Man Lymphocytes # (Manual) Monocytes # (Manual) PT INR APTT Heparin Anti-Xa Level POC ABG pH POC ABG pCO2 POC ABG pO2 Sodium Potassium Chloride Carbon Dioxide BUN Creatinine Glucose POC Glucose 169 H 202 H Calcium Phosphorus Lactate Dehydrogenase Total Creatine Kinase NT-Pro-B Natriuret Pep Total Protein Albumin Jeylv-3-Gjemsrnhs Fflth-9-Vcodssqpf Beta Globulins PEP Interpretation Cholesterol LDL Cholesterol Direct Urine Creatinine 04/06/16 04/06/16 04/06/16 05:23 05:23 06:11 WBC RBC Hgb Hct MCV MCH MCHC RDW Plt Count Lymph % (Auto) [place] % (Auto) Lymph # [place] # Baso # Seg Neutrophils % Seg Neuts % (Manual) Lymphocytes % (Manual) Seg Neutrophils # Seg Neutrophils # Man Lymphocytes # (Manual) Monocytes # (Manual) PT INR APTT Heparin Anti-Xa Level 0.21 L POC ABG pH POC ABG pCO2 POC ABG pO2 Sodium 153 H Potassium Chloride 111.3 H Carbon Dioxide BUN 22 H Creatinine Glucose 62 L POC Glucose 56 L Calcium Phosphorus Lactate Dehydrogenase Total Creatine Kinase NT-Pro-B Natriuret Pep Total Protein Albumin Kurvd-6-Fabzvxmsn Otfop-8-Tjrzwnegq Beta Globulins PEP Interpretation Cholesterol LDL Cholesterol Direct Urine Creatinine 04/06/16 04/06/16 04/06/16 06:52 11:36 14:58 WBC RBC Hgb Hct MCV MCH MCHC RDW Plt Count Lymph % (Auto) [place] % (Auto) Lymph # [place] # Baso # Seg Neutrophils % Seg Neuts % (Manual) Lymphocytes % (Manual) Seg Neutrophils # Seg Neutrophils # Man Lymphocytes # (Manual) Monocytes # (Manual) PT INR APTT Heparin Anti-Xa Level POC ABG pH POC ABG pCO2 POC ABG pO2 Sodium Potassium Chloride Carbon Dioxide BUN Creatinine Glucose POC Glucose 206 H 139 H 147 H Calcium Phosphorus Lactate Dehydrogenase Total Creatine Kinase NT-Pro-B Natriuret Pep Total Protein Albumin Qmthl-1-Wgydcktgx Ikumu-3-Krlypybdg Beta Globulins PEP Interpretation Cholesterol LDL Cholesterol Direct Urine Creatinine 04/06/16 04/06/16 04/06/16 16:03 21:18 23:53 WBC RBC Hgb Hct MCV MCH MCHC RDW Plt Count Lymph % (Auto) [place] % (Auto) Lymph # [place] # Baso # Seg Neutrophils % Seg Neuts % (Manual) Lymphocytes % (Manual) Seg Neutrophils # Seg Neutrophils # Man Lymphocytes # (Manual) Monocytes # (Manual) PT INR APTT Heparin Anti-Xa Level POC ABG pH POC ABG pCO2 POC ABG pO2 Sodium Potassium Chloride Carbon Dioxide BUN Creatinine Glucose POC Glucose 154 H 293 H 301 H Calcium Phosphorus Lactate Dehydrogenase Total Creatine Kinase NT-Pro-B Natriuret Pep Total Protein Albumin Ierjm-1-Hvbqqeuki Vajzo-5-Gjtyxmgms Beta Globulins PEP Interpretation Cholesterol LDL Cholesterol Direct Urine Creatinine 04/07/16 04/07/16 04/07/16 02:30 05:11 05:11 WBC 12.5 H RBC Hgb 11.5 L Hct MCV 82 L MCH 26 L MCHC 31 L RDW Plt Count Lymph % (Auto) [place] % (Auto) Lymph # [place] # Baso # Seg Neutrophils % Seg Neuts % (Manual) Lymphocytes % (Manual) Seg Neutrophils # Seg Neutrophils # Man Lymphocytes # (Manual) Monocytes # (Manual) PT INR APTT Heparin Anti-Xa Level 0.11 L POC ABG pH POC ABG pCO2 POC ABG pO2 Sodium 150 H Potassium Chloride 109.5 H Carbon Dioxide BUN 28 H Creatinine Glucose 264 H POC Glucose Calcium Phosphorus Lactate Dehydrogenase Total Creatine Kinase NT-Pro-B Natriuret Pep Total Protein Albumin Brzlw-9-Optsjpiqx Cjdoz-9-Hujfekbdi Beta Globulins PEP Interpretation Cholesterol LDL Cholesterol Direct Urine Creatinine 04/07/16 04/07/16 04/07/16 06:46 10:18 11:50 WBC RBC Hgb Hct MCV MCH MCHC RDW Plt Count Lymph % (Auto) [place] % (Auto) Lymph # [place] # Baso # Seg Neutrophils % Seg Neuts % (Manual) Lymphocytes % (Manual) Seg Neutrophils # Seg Neutrophils # Man Lymphocytes # (Manual) Monocytes # (Manual) PT 15.1 H INR 1.20 H APTT Heparin Anti-Xa Level POC ABG pH POC ABG pCO2 POC ABG pO2 Sodium Potassium Chloride Carbon Dioxide BUN Creatinine Glucose POC Glucose 259 H 288 H Calcium Phosphorus Lactate Dehydrogenase Total Creatine Kinase NT-Pro-B Natriuret Pep Total Protein Albumin Qhbiv-2-Rvdzugwbo Fhuio-8-Csudahsmv Beta Globulins PEP Interpretation Cholesterol LDL Cholesterol Direct Urine Creatinine 04/07/16 04/08/16 04/08/16 17:58 01:25 06:49 WBC RBC Hgb Hct MCV MCH MCHC RDW Plt Count Lymph % (Auto) [place] % (Auto) Lymph # [place] # Baso # Seg Neutrophils % Seg Neuts % (Manual) Lymphocytes % (Manual) Seg Neutrophils # Seg Neutrophils # Man Lymphocytes # (Manual) Monocytes # (Manual) PT INR APTT Heparin Anti-Xa Level POC ABG pH POC ABG pCO2 POC ABG pO2 Sodium 156 H Potassium Chloride 114.7 H Carbon Dioxide BUN 33 H Creatinine Glucose 169 H POC Glucose 330 H 146 H Calcium Phosphorus Lactate Dehydrogenase Total Creatine Kinase NT-Pro-B Natriuret Pep Total Protein Albumin Mirzd-0-Qkdbhzwfn Hgkvb-2-Fwahiofxr Beta Globulins PEP Interpretation Cholesterol LDL Cholesterol Direct Urine Creatinine 04/08/16 04/08/16 04/08/16 07:34 10:28 10:28 WBC RBC Hgb Hct MCV MCH MCHC RDW Plt Count Lymph % (Auto) [place] % (Auto) Lymph # [place] # Baso # Seg Neutrophils % Seg Neuts % (Manual) Lymphocytes % (Manual) Seg Neutrophils # Seg Neutrophils # Man Lymphocytes # (Manual) Monocytes # (Manual) PT 15.5 H INR 1.24 H APTT Heparin Anti-Xa Level 0.24 L POC ABG pH POC ABG pCO2 POC ABG pO2 Sodium Potassium Chloride Carbon Dioxide BUN Creatinine Glucose POC Glucose 232 H Calcium Phosphorus Lactate Dehydrogenase Total Creatine Kinase NT-Pro-B Natriuret Pep Total Protein Albumin Declu-1-Swancjvfh Fufek-8-Zjzddauuf Beta Globulins PEP Interpretation Cholesterol LDL Cholesterol Direct Urine Creatinine 04/08/16 04/08/16 04/09/16 11:36 15:38 00:01 WBC RBC Hgb Hct MCV MCH MCHC RDW Plt Count Lymph % (Auto) [place] % (Auto) Lymph # [place] # Baso # Seg Neutrophils % Seg Neuts % (Manual) Lymphocytes % (Manual) Seg Neutrophils # Seg Neutrophils # Man Lymphocytes # (Manual) Monocytes # (Manual) PT INR APTT Heparin Anti-Xa Level POC ABG pH POC ABG pCO2 POC ABG pO2 Sodium Potassium Chloride Carbon Dioxide BUN Creatinine Glucose POC Glucose 193 H 163 H 180 H Calcium Phosphorus Lactate Dehydrogenase Total Creatine Kinase NT-Pro-B Natriuret Pep Total Protein Albumin Trwtc-5-Wiftdutod Yztns-1-Lsencierc Beta Globulins PEP Interpretation Cholesterol LDL Cholesterol Direct Urine Creatinine 04/09/16 04/09/16 04/09/16 06:17 06:42 06:42 WBC RBC Hgb Hct MCV MCH MCHC RDW Plt Count Lymph % (Auto) [place] % (Auto) Lymph # [place] # Baso # Seg Neutrophils % Seg Neuts % (Manual) Lymphocytes % (Manual) Seg Neutrophils # Seg Neutrophils # Man Lymphocytes # (Manual) Monocytes # (Manual) PT 17.4 H INR 1.43 H APTT Heparin Anti-Xa Level POC ABG pH POC ABG pCO2 POC ABG pO2 Sodium 153 H Potassium Chloride 113.2 H Carbon Dioxide BUN 29 H Creatinine Glucose 301 H POC Glucose 249 H Calcium 8.3 L Phosphorus Lactate Dehydrogenase Total Creatine Kinase NT-Pro-B Natriuret Pep Total Protein Albumin Ajrit-5-Qphjrtyqw Wszna-8-Iwfodkgvt Beta Globulins PEP Interpretation Cholesterol LDL Cholesterol Direct Urine Creatinine 04/09/16 04/09/16 04/09/16 07:37 11:26 15:45 WBC RBC Hgb Hct MCV MCH MCHC RDW Plt Count Lymph % (Auto) [place] % (Auto) Lymph # [place] # Baso # Seg Neutrophils % Seg Neuts % (Manual) Lymphocytes % (Manual) Seg Neutrophils # Seg Neutrophils # Man Lymphocytes # (Manual) Monocytes # (Manual) PT INR APTT Heparin Anti-Xa Level POC ABG pH POC ABG pCO2 POC ABG pO2 Sodium Potassium Chloride Carbon Dioxide BUN Creatinine Glucose POC Glucose 283 H 306 H 354 H Calcium Phosphorus Lactate Dehydrogenase Total Creatine Kinase NT-Pro-B Natriuret Pep Total Protein Albumin Omxxq-6-Fvxsiinej Lcrrf-0-Mlyyfyqwo Beta Globulins PEP Interpretation Cholesterol LDL Cholesterol Direct Urine Creatinine 04/10/16 04/10/16 04/10/16 00:53 07:15 07:34 WBC RBC Hgb 11.3 L Hct MCV MCH MCHC RDW Plt Count Lymph % (Auto) [place] % (Auto) Lymph # [place] # Baso # Seg Neutrophils % Seg Neuts % (Manual) Lymphocytes % (Manual) Seg Neutrophils # Seg Neutrophils # Man Lymphocytes # (Manual) Monocytes # (Manual) PT INR APTT Heparin Anti-Xa Level POC ABG pH POC ABG pCO2 POC ABG pO2 Sodium Potassium Chloride Carbon Dioxide BUN Creatinine Glucose POC Glucose 323 H 311 H Calcium Phosphorus Lactate Dehydrogenase Total Creatine Kinase NT-Pro-B Natriuret Pep Total Protein Albumin Aijax-0-Ukveelxct Dafjn-4-Xlgvfioir Beta Globulins PEP Interpretation Cholesterol LDL Cholesterol Direct Urine Creatinine 04/10/16 04/10/16 04/10/16 07:34 07:34 11:25 WBC RBC Hgb Hct MCV MCH MCHC RDW Plt Count Lymph % (Auto) [place] % (Auto) Lymph # [place] # Baso # Seg Neutrophils % Seg Neuts % (Manual) Lymphocytes % (Manual) Seg Neutrophils # Seg Neutrophils # Man Lymphocytes # (Manual) Monocytes # (Manual) PT 17.3 H INR 1.42 H APTT Heparin Anti-Xa Level POC ABG pH POC ABG pCO2 POC ABG pO2 Sodium 158 H Potassium Chloride 118.6 H Carbon Dioxide BUN 30 H Creatinine Glucose 330 H POC Glucose 335 H Calcium 8.3 L Phosphorus Lactate Dehydrogenase Total Creatine Kinase NT-Pro-B Natriuret Pep Total Protein Albumin Gxtmx-9-Rwizhsycr Nzlqf-2-Msrhyljzv Beta Globulins PEP Interpretation Cholesterol LDL Cholesterol Direct Urine Creatinine 04/10/16 04/11/16 04/11/16 16:21 00:29 07:47 WBC RBC Hgb Hct MCV MCH MCHC RDW Plt Count Lymph % (Auto) [place] % (Auto) Lymph # [place] # Baso # Seg Neutrophils % Seg Neuts % (Manual) Lymphocytes % (Manual) Seg Neutrophils # Seg Neutrophils # Man Lymphocytes # (Manual) Monocytes # (Manual) PT 18.4 H INR 1.53 H APTT Heparin Anti-Xa Level POC ABG pH POC ABG pCO2 POC ABG pO2 Sodium Potassium Chloride Carbon Dioxide BUN Creatinine Glucose POC Glucose 230 H 162 H Calcium Phosphorus Lactate Dehydrogenase Total Creatine Kinase NT-Pro-B Natriuret Pep Total Protein Albumin Lgfpr-9-Cfzowqqdn Lxaqx-9-Edvcesaag Beta Globulins PEP Interpretation Cholesterol LDL Cholesterol Direct Urine Creatinine 04/11/16 04/11/16 04/12/16 07:47 11:22 04:54 WBC RBC Hgb 11.0 L Hct 35.0 L MCV MCH MCHC RDW Plt Count Lymph % (Auto) [place] % (Auto) Lymph # [place] # Baso # Seg Neutrophils % Seg Neuts % (Manual) Lymphocytes % (Manual) Seg Neutrophils # Seg Neutrophils # Man Lymphocytes # (Manual) Monocytes # (Manual) PT INR APTT Heparin Anti-Xa Level POC ABG pH POC ABG pCO2 POC ABG pO2 Sodium 155 H Potassium Chloride 114.5 H Carbon Dioxide BUN 23 H Creatinine Glucose 157 H POC Glucose 229 H Calcium Phosphorus Lactate Dehydrogenase Total Creatine Kinase NT-Pro-B Natriuret Pep Total Protein Albumin Hxgkv-3-Cdbqscuwn Zciuj-4-Frqwwednn Beta Globulins PEP Interpretation Cholesterol LDL Cholesterol Direct Urine Creatinine 04/12/16 04/12/16 04/12/16 04:54 04:54 05:57 WBC RBC Hgb Hct MCV MCH MCHC RDW Plt Count Lymph % (Auto) [place] % (Auto) Lymph # [place] # Baso # Seg Neutrophils % Seg Neuts % (Manual) Lymphocytes % (Manual) Seg Neutrophils # Seg Neutrophils # Man Lymphocytes # (Manual) Monocytes # (Manual) PT 22.5 H INR 1.98 H APTT Heparin Anti-Xa Level 0.19 L POC ABG pH POC ABG pCO2 POC ABG pO2 Sodium 156 H Potassium Chloride 115.4 H Carbon Dioxide BUN 23 H Creatinine Glucose 143 H POC Glucose 194 H Calcium Phosphorus Lactate Dehydrogenase Total Creatine Kinase NT-Pro-B Natriuret Pep Total Protein Albumin Umhkh-2-Pdhjyfxhe Yeqit-5-Xgohvdymg Beta Globulins PEP Interpretation Cholesterol LDL Cholesterol Direct Urine Creatinine 04/12/16 04/12/16 04/12/16 12:34 19:01 23:30 WBC RBC Hgb Hct MCV MCH MCHC RDW Plt Count Lymph % (Auto) [place] % (Auto) Lymph # [place] # Baso # Seg Neutrophils % Seg Neuts % (Manual) Lymphocytes % (Manual) Seg Neutrophils # Seg Neutrophils # Man Lymphocytes # (Manual) Monocytes # (Manual) PT INR APTT Heparin Anti-Xa Level POC ABG pH POC ABG pCO2 POC ABG pO2 Sodium Potassium Chloride Carbon Dioxide BUN Creatinine Glucose POC Glucose 291 H 235 H 154 H Calcium Phosphorus Lactate Dehydrogenase Total Creatine Kinase NT-Pro-B Natriuret Pep Total Protein Albumin Hovrp-3-Ymonbjxol Wujvy-4-Wjoswumil Beta Globulins PEP Interpretation Cholesterol LDL Cholesterol Direct Urine Creatinine 04/13/16 04/13/16 04/13/16 05:16 05:16 05:28 WBC RBC Hgb Hct MCV MCH MCHC RDW Plt Count Lymph % (Auto) [place] % (Auto) Lymph # [place] # Baso # Seg Neutrophils % Seg Neuts % (Manual) Lymphocytes % (Manual) Seg Neutrophils # Seg Neutrophils # Man Lymphocytes # (Manual) Monocytes # (Manual) PT 27.0 H INR 2.49 H APTT Heparin Anti-Xa Level 0.20 L POC ABG pH POC ABG pCO2 POC ABG pO2 Sodium 150 H Potassium Chloride 110.5 H Carbon Dioxide BUN 21 H Creatinine Glucose 159 H POC Glucose 177 H Calcium Phosphorus Lactate Dehydrogenase Total Creatine Kinase NT-Pro-B Natriuret Pep Total Protein Albumin Zkcvh-1-Xodqzhuuz Romdw-0-Zrfogcoib Beta Globulins PEP Interpretation Cholesterol LDL Cholesterol Direct Urine Creatinine 04/13/16 04/13/16 04/14/16 11:30 17:54 00:44 WBC RBC Hgb Hct MCV MCH MCHC RDW Plt Count Lymph % (Auto) [place] % (Auto) Lymph # [place] # Baso # Seg Neutrophils % Seg Neuts % (Manual) Lymphocytes % (Manual) Seg Neutrophils # Seg Neutrophils # Man Lymphocytes # (Manual) Monocytes # (Manual) PT INR APTT Heparin Anti-Xa Level POC ABG pH POC ABG pCO2 POC ABG pO2 Sodium Potassium Chloride Carbon Dioxide BUN Creatinine Glucose POC Glucose 181 H 251 H 237 H Calcium Phosphorus Lactate Dehydrogenase Total Creatine Kinase NT-Pro-B Natriuret Pep Total Protein Albumin Mjder-7-Vgprwsjsp Rdbim-6-Oqokylflp Beta Globulins PEP Interpretation Cholesterol LDL Cholesterol Direct Urine Creatinine 04/14/16 04/14/16 04/14/16 05:00 05:42 05:42 WBC RBC Hgb Hct MCV MCH MCHC RDW Plt Count Lymph % (Auto) [place] % (Auto) Lymph # [place] # Baso # Seg Neutrophils % Seg Neuts % (Manual) Lymphocytes % (Manual) Seg Neutrophils # Seg Neutrophils # Man Lymphocytes # (Manual) Monocytes # (Manual) PT 30.3 H INR 2.88 H APTT Heparin Anti-Xa Level 0.27 L POC ABG pH POC ABG pCO2 POC ABG pO2 Sodium Potassium 3.5 L Chloride Carbon Dioxide BUN Creatinine Glucose 160 H POC Glucose Calcium 8.2 L Phosphorus Lactate Dehydrogenase Total Creatine Kinase NT-Pro-B Natriuret Pep Total Protein Albumin Wcvus-0-Tkguwubij Plmfp-9-Hhuwbdtgo Beta Globulins PEP Interpretation Cholesterol LDL Cholesterol Direct Urine Creatinine 04/14/16 04/14/16 04/14/16 06:02 06:16 09:18 WBC 12.3 H RBC Hgb 11.4 L Hct MCV 82 L MCH 26 L MCHC RDW Plt Count Lymph % (Auto) [place] % (Auto) Lymph # [place] # Baso # Seg Neutrophils % Seg Neuts % (Manual) Lymphocytes % (Manual) Seg Neutrophils # Seg Neutrophils # Man Lymphocytes # (Manual) Monocytes # (Manual) PT INR APTT Heparin Anti-Xa Level POC ABG pH POC ABG pCO2 POC ABG pO2 Sodium Potassium Chloride Carbon Dioxide BUN Creatinine Glucose POC Glucose 156 H 164 H Calcium Phosphorus Lactate Dehydrogenase Total Creatine Kinase NT-Pro-B Natriuret Pep Total Protein Albumin Tazob-7-Hjijieaya Mxnrx-4-Lvjultorv Beta Globulins PEP Interpretation Cholesterol LDL Cholesterol Direct Urine Creatinine 04/14/16 04/15/16 04/15/16 13:58 01:07 06:04 WBC RBC Hgb Hct MCV MCH MCHC RDW Plt Count Lymph % (Auto) [place] % (Auto) Lymph # [place] # Baso # Seg Neutrophils % Seg Neuts % (Manual) Lymphocytes % (Manual) Seg Neutrophils # Seg Neutrophils # Man Lymphocytes # (Manual) Monocytes # (Manual) PT 24.9 H INR 2.25 H APTT Heparin Anti-Xa Level POC ABG pH POC ABG pCO2 POC ABG pO2 Sodium Potassium Chloride Carbon Dioxide BUN Creatinine Glucose POC Glucose 109 H 154 H Calcium Phosphorus Lactate Dehydrogenase Total Creatine Kinase NT-Pro-B Natriuret Pep Total Protein Albumin Lbbsf-5-Vihylasvj Rubrb-4-Fuynonafb Beta Globulins PEP Interpretation Cholesterol LDL Cholesterol Direct Urine Creatinine 04/15/16 04/15/16 04/16/16 06:08 12:41 00:38 WBC RBC Hgb Hct MCV MCH MCHC RDW Plt Count Lymph % (Auto) [place] % (Auto) Lymph # [place] # Baso # Seg Neutrophils % Seg Neuts % (Manual) Lymphocytes % (Manual) Seg Neutrophils # Seg Neutrophils # Man Lymphocytes # (Manual) Monocytes # (Manual) PT INR APTT Heparin Anti-Xa Level POC ABG pH POC ABG pCO2 POC ABG pO2 Sodium Potassium Chloride Carbon Dioxide BUN Creatinine Glucose POC Glucose 165 H 223 H 216 H Calcium Phosphorus Lactate Dehydrogenase Total Creatine Kinase NT-Pro-B Natriuret Pep Total Protein Albumin Vtdfs-8-Bcghvquyk Wurqg-5-Mblrhnfqi Beta Globulins PEP Interpretation Cholesterol LDL Cholesterol Direct Urine Creatinine 04/16/16 04/16/16 04/16/16 05:45 07:09 14:00 WBC RBC Hgb Hct MCV MCH MCHC RDW Plt Count Lymph % (Auto) [place] % (Auto) Lymph # [place] # Baso # Seg Neutrophils % Seg Neuts % (Manual) Lymphocytes % (Manual) Seg Neutrophils # Seg Neutrophils # Man Lymphocytes # (Manual) Monocytes # (Manual) PT 19.4 H INR 1.64 H APTT Heparin Anti-Xa Level 0.10 L POC ABG pH POC ABG pCO2 POC ABG pO2 Sodium Potassium Chloride Carbon Dioxide BUN Creatinine Glucose POC Glucose 207 H 69 L Calcium Phosphorus Lactate Dehydrogenase Total Creatine Kinase NT-Pro-B Natriuret Pep Total Protein Albumin Nnqya-2-Dauhuomkb Bvoln-6-Whsiftpdn Beta Globulins PEP Interpretation Cholesterol LDL Cholesterol Direct Urine Creatinine 04/16/16 04/16/16 04/16/16 17:40 17:52 19:38 WBC RBC Hgb Hct MCV MCH MCHC RDW Plt Count Lymph % (Auto) [place] % (Auto) Lymph # [place] # Baso # Seg Neutrophils % Seg Neuts % (Manual) Lymphocytes % (Manual) Seg Neutrophils # Seg Neutrophils # Man Lymphocytes # (Manual) Monocytes # (Manual) PT INR APTT Heparin Anti-Xa Level 0.26 L POC ABG pH 7.543 H 7.488 H POC ABG pCO2 26.3 L 30.3 L POC ABG pO2 55 L 203 H Sodium Potassium Chloride Carbon Dioxide BUN Creatinine Glucose POC Glucose Calcium Phosphorus Lactate Dehydrogenase Total Creatine Kinase NT-Pro-B Natriuret Pep Total Protein Albumin Ovrma-9-Rzvssooxs Hrzfg-8-Bujwditur Beta Globulins PEP Interpretation Cholesterol LDL Cholesterol Direct Urine Creatinine 04/17/16 04/17/16 04/17/16 00:04 05:10 05:36 WBC RBC Hgb Hct MCV MCH MCHC RDW Plt Count Lymph % (Auto) [place] % (Auto) Lymph # [place] # Baso # Seg Neutrophils % Seg Neuts % (Manual) Lymphocytes % (Manual) Seg Neutrophils # Seg Neutrophils # Man Lymphocytes # (Manual) Monocytes # (Manual) PT INR APTT Heparin Anti-Xa Level POC ABG pH POC ABG pCO2 32.7 L POC ABG pO2 68 L Sodium Potassium Chloride Carbon Dioxide BUN Creatinine Glucose POC Glucose 113 H 161 H Calcium Phosphorus Lactate Dehydrogenase Total Creatine Kinase NT-Pro-B Natriuret Pep Total Protein Albumin Okujy-9-Iogbcfxre Vfpez-1-Fatltdlxd Beta Globulins PEP Interpretation Cholesterol LDL Cholesterol Direct Urine Creatinine 04/17/16 04/17/16 04/17/16 05:41 08:37 11:46 WBC RBC Hgb Hct MCV MCH MCHC RDW Plt Count Lymph % (Auto) [place] % (Auto) Lymph # [place] # Baso # Seg Neutrophils % Seg Neuts % (Manual) Lymphocytes % (Manual) Seg Neutrophils # Seg Neutrophils # Man Lymphocytes # (Manual) Monocytes # (Manual) PT 17.4 H INR 1.43 H APTT Heparin Anti-Xa Level POC ABG pH POC ABG pCO2 POC ABG pO2 Sodium Potassium Chloride Carbon Dioxide BUN Creatinine Glucose POC Glucose 154 H 138 H Calcium Phosphorus Lactate Dehydrogenase Total Creatine Kinase NT-Pro-B Natriuret Pep Total Protein Albumin Pabue-3-Ocqwdfpqz Sljgq-8-Osspoyvsb Beta Globulins PEP Interpretation Cholesterol LDL Cholesterol Direct Urine Creatinine 04/17/16 04/17/16 04/17/16 12:17 12:17 21:20 WBC 16.5 H RBC 3.31 L Hgb 8.8 L Hct 26.9 L MCV 81 L MCH 27 L MCHC RDW 15.5 H Plt Count Lymph % (Auto) [place] % (Auto) Lymph # [place] # Baso # Seg Neutrophils % Seg Neuts % (Manual) Lymphocytes % (Manual) 3.0 L Seg Neutrophils # Seg Neutrophils # Man 10.1 H Lymphocytes # (Manual) 0.5 L Monocytes # (Manual) PT INR APTT Heparin Anti-Xa Level 0.14 L POC ABG pH POC ABG pCO2 POC ABG pO2 Sodium Potassium Chloride Carbon Dioxide 21 L BUN 38 H Creatinine 1.8 H D Glucose 131 H POC Glucose Calcium 7.6 L Phosphorus Lactate Dehydrogenase Total Creatine Kinase NT-Pro-B Natriuret Pep Total Protein Albumin Ddxmo-5-Qgudcenjs Psihk-6-Uwfkoolyz Beta Globulins PEP Interpretation Cholesterol LDL Cholesterol Direct Urine Creatinine 04/17/16 04/17/16 04/18/16 23:38 23:41 00:21 WBC RBC Hgb Hct MCV MCH MCHC RDW Plt Count Lymph % (Auto) [place] % (Auto) Lymph # [place] # Baso # Seg Neutrophils % Seg Neuts % (Manual) Lymphocytes % (Manual) Seg Neutrophils # Seg Neutrophils # Man Lymphocytes # (Manual) Monocytes # (Manual) PT INR APTT Heparin Anti-Xa Level POC ABG pH POC ABG pCO2 POC ABG pO2 Sodium Potassium Chloride Carbon Dioxide BUN Creatinine Glucose POC Glucose < 40 L < 40 L 223 H Calcium Phosphorus Lactate Dehydrogenase Total Creatine Kinase NT-Pro-B Natriuret Pep Total Protein Albumin Dxjuq-0-Zkmrxsqok Xxjhq-4-Jekkzkoqw Beta Globulins PEP Interpretation Cholesterol LDL Cholesterol Direct Urine Creatinine 04/18/16 04/18/16 04/18/16 05:01 05:20 05:20 WBC 17.6 H RBC 3.44 L Hgb 9.1 L Hct 27.8 L MCV 81 L MCH 26 L MCHC RDW 15.5 H Plt Count Lymph % (Auto) 2.7 L [place] % (Auto) 8.3 H Lymph # 0.5 L [place] # 1.5 H Baso # Seg Neutrophils % 88.4 H Seg Neuts % (Manual) Lymphocytes % (Manual) Seg Neutrophils # 15.6 H Seg Neutrophils # Man Lymphocytes # (Manual) Monocytes # (Manual) PT 17.4 H INR 1.43 H APTT Heparin Anti-Xa Level POC ABG pH 7.528 H POC ABG pCO2 27.9 L POC ABG pO2 Sodium Potassium Chloride Carbon Dioxide BUN Creatinine Glucose POC Glucose Calcium Phosphorus Lactate Dehydrogenase Total Creatine Kinase NT-Pro-B Natriuret Pep Total Protein Albumin Apsdf-1-Nrwonbprg Froip-3-Xxjsbsxsm Beta Globulins PEP Interpretation Cholesterol LDL Cholesterol Direct Urine Creatinine 04/18/16 04/18/16 04/18/16 05:20 05:31 06:50 WBC RBC Hgb Hct MCV MCH MCHC RDW Plt Count Lymph % (Auto) [place] % (Auto) Lymph # [place] # Baso # Seg Neutrophils % Seg Neuts % (Manual) Lymphocytes % (Manual) Seg Neutrophils # Seg Neutrophils # Man Lymphocytes # (Manual) Monocytes # (Manual) PT INR APTT Heparin Anti-Xa Level POC ABG pH POC ABG pCO2 POC ABG pO2 Sodium Potassium 3.4 L Chloride Carbon Dioxide 21 L BUN 22 H Creatinine Glucose POC Glucose 61 L 124 H Calcium 8.0 L Phosphorus Lactate Dehydrogenase Total Creatine Kinase NT-Pro-B Natriuret Pep Total Protein Albumin Ewhsj-4-Mweepqzwz Juvgv-9-Ahryrkupx Beta Globulins PEP Interpretation Cholesterol LDL Cholesterol Direct Urine Creatinine 04/18/16 04/18/16 04/19/16 17:42 22:40 00:31 WBC RBC Hgb Hct MCV MCH MCHC RDW Plt Count Lymph % (Auto) [place] % (Auto) Lymph # [place] # Baso # Seg Neutrophils % Seg Neuts % (Manual) Lymphocytes % (Manual) Seg Neutrophils # Seg Neutrophils # Man Lymphocytes # (Manual) Monocytes # (Manual) PT INR APTT Heparin Anti-Xa Level < 0.10 L POC ABG pH POC ABG pCO2 POC ABG pO2 Sodium Potassium Chloride Carbon Dioxide BUN Creatinine Glucose POC Glucose 159 H 134 H Calcium Phosphorus Lactate Dehydrogenase Total Creatine Kinase NT-Pro-B Natriuret Pep Total Protein Albumin Rqsaw-0-Hnazmqfws Raxvk-3-Sojnzyxbc Beta Globulins PEP Interpretation Cholesterol LDL Cholesterol Direct Urine Creatinine 04/19/16 04/19/16 04/19/16 04:18 04:18 04:25 WBC 19.0 H RBC 3.58 L Hgb 9.3 L Hct 28.8 L MCV 80 L MCH 26 L MCHC RDW 15.5 H Plt Count Lymph % (Auto) 2.8 L [place] % (Auto) 7.4 H Lymph # 0.5 L [place] # 1.4 H Baso # Seg Neutrophils % 89.4 H Seg Neuts % (Manual) Lymphocytes % (Manual) Seg Neutrophils # 17.0 H Seg Neutrophils # Man Lymphocytes # (Manual) Monocytes # (Manual) PT INR APTT Heparin Anti-Xa Level POC ABG pH 7.527 H POC ABG pCO2 27.1 L POC ABG pO2 Sodium Potassium Chloride Carbon Dioxide BUN 22 H Creatinine Glucose 215 H POC Glucose Calcium 8.0 L Phosphorus Lactate Dehydrogenase Total Creatine Kinase NT-Pro-B Natriuret Pep Total Protein Albumin Ktwzg-1-Ltfolwfoz Ruqdg-4-Ruonmzibs Beta Globulins PEP Interpretation Cholesterol LDL Cholesterol Direct Urine Creatinine 04/19/16 04/19/16 04/19/16 05:45 08:10 14:08 WBC RBC Hgb Hct MCV MCH MCHC RDW Plt Count Lymph % (Auto) [place] % (Auto) Lymph # [place] # Baso # Seg Neutrophils % Seg Neuts % (Manual) Lymphocytes % (Manual) Seg Neutrophils # Seg Neutrophils # Man Lymphocytes # (Manual) Monocytes # (Manual) PT 22.1 H INR 1.93 H APTT Heparin Anti-Xa Level 0.17 L POC ABG pH POC ABG pCO2 POC ABG pO2 Sodium Potassium Chloride Carbon Dioxide BUN Creatinine Glucose POC Glucose 196 H 318 H Calcium Phosphorus Lactate Dehydrogenase Total Creatine Kinase NT-Pro-B Natriuret Pep Total Protein Albumin Ghqko-9-Bsyuzokzc Byprx-5-Ggbhhpvcn Beta Globulins PEP Interpretation Cholesterol LDL Cholesterol Direct Urine Creatinine 04/19/16 04/20/16 04/20/16 17:27 03:55 03:55 WBC 18.5 H RBC 3.19 L Hgb 8.4 L Hct 25.7 L MCV 80 L MCH 26 L MCHC RDW 15.9 H Plt Count Lymph % (Auto) 4.3 L [place] % (Auto) 10.1 H Lymph # 0.8 L [place] # 1.9 H Baso # Seg Neutrophils % 85.2 H Seg Neuts % (Manual) Lymphocytes % (Manual) Seg Neutrophils # 15.8 H Seg Neutrophils # Man Lymphocytes # (Manual) Monocytes # (Manual) PT 22.0 H INR 1.92 H APTT Heparin Anti-Xa Level 0.14 L POC ABG pH POC ABG pCO2 POC ABG pO2 Sodium Potassium Chloride Carbon Dioxide BUN Creatinine Glucose POC Glucose 230 H Calcium Phosphorus Lactate Dehydrogenase Total Creatine Kinase NT-Pro-B Natriuret Pep Total Protein Albumin [place]-4-Unokmpcek Ukwbe-4-Yktwjfheo Beta Globulins PEP Interpretation Cholesterol LDL Cholesterol Direct Urine Creatinine 04/20/16 04/20/16 04/20/16 03:55 04:16 05:52 WBC RBC Hgb Hct MCV MCH MCHC RDW Plt Count Lymph % (Auto) [place] % (Auto) Lymph # [place] # Baso # Seg Neutrophils % Seg Neuts % (Manual) Lymphocytes % (Manual) Seg Neutrophils # Seg Neutrophils # Man Lymphocytes # (Manual) Monocytes # (Manual) PT INR APTT Heparin Anti-Xa Level POC ABG pH 7.474 H POC ABG pCO2 26.5 L POC ABG pO2 Sodium Potassium Chloride Carbon Dioxide 18 L BUN 38 H Creatinine 2.7 H D Glucose 159 H POC Glucose 214 H Calcium 8.0 L Phosphorus Lactate Dehydrogenase Total Creatine Kinase NT-Pro-B Natriuret Pep Total Protein Albumin Zpubb-6-Bicjepmqp Bssgj-2-Rgeqapaif Beta Globulins PEP Interpretation Cholesterol LDL Cholesterol Direct Urine Creatinine 04/20/16 04/20/16 04/20/16 10:32 11:27 11:50 WBC RBC Hgb Hct MCV MCH MCHC RDW Plt Count Lymph % (Auto) [place] % (Auto) Lymph # [place] # Baso # Seg Neutrophils % Seg Neuts % (Manual) Lymphocytes % (Manual) Seg Neutrophils # Seg Neutrophils # Man Lymphocytes # (Manual) Monocytes # (Manual) PT INR APTT Heparin Anti-Xa Level POC ABG pH POC ABG pCO2 POC ABG pO2 Sodium Potassium Chloride Carbon Dioxide 20 L BUN 45 H Creatinine 3.0 H Glucose 215 H POC Glucose 248 H Calcium 8.0 L Phosphorus Lactate Dehydrogenase Total Creatine Kinase NT-Pro-B Natriuret Pep Total Protein Albumin Jkvub-3-Vqoyjfzxi Tivqh-4-Dklnlrnym Beta Globulins PEP Interpretation Cholesterol LDL Cholesterol Direct Urine Creatinine 85.5 H 04/20/16 04/21/16 04/21/16 16:59 00:13 04:29 WBC RBC Hgb Hct MCV MCH MCHC RDW Plt Count Lymph % (Auto) [place] % (Auto) Lymph # [place] # Baso # Seg Neutrophils % Seg Neuts % (Manual) Lymphocytes % (Manual) Seg Neutrophils # Seg Neutrophils # Man Lymphocytes # (Manual) Monocytes # (Manual) PT 18.1 H INR 1.50 H APTT Heparin Anti-Xa Level 0.10 L POC ABG pH POC ABG pCO2 POC ABG pO2 Sodium Potassium Chloride Carbon Dioxide BUN Creatinine Glucose POC Glucose 312 H 287 H Calcium Phosphorus Lactate Dehydrogenase Total Creatine Kinase NT-Pro-B Natriuret Pep Total Protein Albumin Gvahk-1-Niorgdyme Vhvlp-1-Notrnmxsp Beta Globulins PEP Interpretation Cholesterol LDL Cholesterol Direct Urine Creatinine 04/21/16 04/21/16 04/21/16 04:29 04:29 04:55 WBC 15.4 H RBC 3.24 L Hgb 8.4 L Hct 25.6 L MCV 79 L MCH 26 L MCHC RDW 16.1 H Plt Count Lymph % (Auto) 6.8 L [place] % (Auto) 12.9 H Lymph # 1.0 L [place] # 2.0 H Baso # Seg Neutrophils % 79.8 H Seg Neuts % (Manual) Lymphocytes % (Manual) Seg Neutrophils # 12.3 H Seg Neutrophils # Man Lymphocytes # (Manual) Monocytes # (Manual) PT INR APTT Heparin Anti-Xa Level POC ABG pH 7.512 H POC ABG pCO2 25.4 L POC ABG pO2 Sodium 135 L Potassium Chloride Carbon Dioxide 18 L BUN 57 H Creatinine 3.9 H Glucose 202 H POC Glucose Calcium 8.0 L Phosphorus Lactate Dehydrogenase Total Creatine Kinase NT-Pro-B Natriuret Pep Total Protein Albumin Drtvu-6-Zgnltapfd Nlzxi-7-Kaxfrqpiw Beta Globulins PEP Interpretation Cholesterol LDL Cholesterol Direct Urine Creatinine 04/21/16 04/21/16 04/21/16 05:20 12:08 12:16 WBC RBC Hgb Hct MCV MCH MCHC RDW Plt Count Lymph % (Auto) [place] % (Auto) Lymph # [place] # Baso # Seg Neutrophils % Seg Neuts % (Manual) Lymphocytes % (Manual) Seg Neutrophils # Seg Neutrophils # Man Lymphocytes # (Manual) Monocytes # (Manual) PT INR APTT Heparin Anti-Xa Level 0.16 L POC ABG pH POC ABG pCO2 POC ABG pO2 Sodium Potassium Chloride Carbon Dioxide BUN Creatinine Glucose POC Glucose 203 H 221 H Calcium Phosphorus Lactate Dehydrogenase Total Creatine Kinase NT-Pro-B Natriuret Pep Total Protein Albumin Tzfqj-8-Dupadcymz Tvzjs-6-Golyfozse Beta Globulins PEP Interpretation Cholesterol LDL Cholesterol Direct Urine Creatinine 04/21/16 04/22/16 04/22/16 17:22 05:01 05:20 WBC RBC Hgb Hct MCV MCH MCHC RDW Plt Count Lymph % (Auto) [place] % (Auto) Lymph # [place] # Baso # Seg Neutrophils % Seg Neuts % (Manual) Lymphocytes % (Manual) Seg Neutrophils # Seg Neutrophils # Man Lymphocytes # (Manual) Monocytes # (Manual) PT 17.5 H INR 1.44 H APTT Heparin Anti-Xa Level POC ABG pH 7.460 H POC ABG pCO2 27.9 L POC ABG pO2 Sodium Potassium Chloride Carbon Dioxide BUN Creatinine Glucose POC Glucose 189 H Calcium Phosphorus Lactate Dehydrogenase Total Creatine Kinase NT-Pro-B Natriuret Pep Total Protein Albumin Wimft-8-Lhyyuudrc Acjdw-1-Mqcynizag Beta Globulins PEP Interpretation Cholesterol LDL Cholesterol Direct Urine Creatinine 04/22/16 04/22/16 04/22/16 05:43 06:40 08:08 WBC RBC Hgb Hct MCV MCH MCHC RDW Plt Count Lymph % (Auto) [place] % (Auto) Lymph # [place] # Baso # Seg Neutrophils % Seg Neuts % (Manual) Lymphocytes % (Manual) Seg Neutrophils # Seg Neutrophils # Man Lymphocytes # (Manual) Monocytes # (Manual) PT INR APTT Heparin Anti-Xa Level POC ABG pH POC ABG pCO2 POC ABG pO2 Sodium Potassium Chloride Carbon Dioxide BUN Creatinine Glucose POC Glucose 56 L 136 H 134 H Calcium Phosphorus Lactate Dehydrogenase Total Creatine Kinase NT-Pro-B Natriuret Pep Total Protein Albumin Mgsxv-3-Cbsrqvfiw Accwl-2-Rissepuuk Beta Globulins PEP Interpretation Cholesterol LDL Cholesterol Direct Urine Creatinine 04/22/16 04/22/16 04/22/16 11:18 12:10 18:17 WBC RBC Hgb Hct MCV MCH MCHC RDW Plt Count Lymph % (Auto) [place] % (Auto) Lymph # [place] # Baso # Seg Neutrophils % Seg Neuts % (Manual) Lymphocytes % (Manual) Seg Neutrophils # Seg Neutrophils # Man Lymphocytes # (Manual) Monocytes # (Manual) PT INR APTT Heparin Anti-Xa Level 0.12 L POC ABG pH POC ABG pCO2 POC ABG pO2 Sodium Potassium Chloride Carbon Dioxide BUN Creatinine Glucose POC Glucose 142 H 227 H Calcium Phosphorus Lactate Dehydrogenase Total Creatine Kinase NT-Pro-B Natriuret Pep Total Protein Albumin Yuizs-0-Ieqtoxzwq Ekrmi-6-Rbepapjms Beta Globulins PEP Interpretation Cholesterol LDL Cholesterol Direct Urine Creatinine 04/22/16 04/22/16 04/23/16 22:28 23:47 04:49 WBC RBC Hgb Hct MCV MCH MCHC RDW Plt Count Lymph % (Auto) [place] % (Auto) Lymph # [place] # Baso # Seg Neutrophils % Seg Neuts % (Manual) Lymphocytes % (Manual) Seg Neutrophils # Seg Neutrophils # Man Lymphocytes # (Manual) Monocytes # (Manual) PT INR APTT Heparin Anti-Xa Level 0.16 L POC ABG pH POC ABG pCO2 32.6 L POC ABG pO2 122 H Sodium Potassium Chloride Carbon Dioxide BUN Creatinine Glucose POC Glucose 266 H Calcium Phosphorus Lactate Dehydrogenase Total Creatine Kinase NT-Pro-B Natriuret Pep Total Protein Albumin Pfnag-9-Ikpnjonfx Ngfxj-2-Ejszmosoi Beta Globulins PEP Interpretation Cholesterol LDL Cholesterol Direct Urine Creatinine 04/23/16 04/23/16 04/23/16 05:41 08:05 08:34 WBC RBC Hgb Hct MCV MCH MCHC RDW Plt Count Lymph % (Auto) [place] % (Auto) Lymph # [place] # Baso # Seg Neutrophils % Seg Neuts % (Manual) Lymphocytes % (Manual) Seg Neutrophils # Seg Neutrophils # Man Lymphocytes # (Manual) Monocytes # (Manual) PT INR APTT Heparin Anti-Xa Level POC ABG pH POC ABG pCO2 POC ABG pO2 Sodium Potassium Chloride 109.5 H Carbon Dioxide 21 L BUN 23 H Creatinine Glucose 227 H POC Glucose 227 H 224 H Calcium 8.2 L Phosphorus Lactate Dehydrogenase Total Creatine Kinase NT-Pro-B Natriuret Pep Total Protein Albumin Fiadq-4-Vncphtrui Qyqxb-3-Ooqbrylyy Beta Globulins PEP Interpretation Cholesterol LDL Cholesterol Direct Urine Creatinine 04/23/16 04/23/16 04/23/16 10:45 11:37 22:49 WBC RBC Hgb Hct MCV MCH MCHC RDW Plt Count Lymph % (Auto) [place] % (Auto) Lymph # [place] # Baso # Seg Neutrophils % Seg Neuts % (Manual) Lymphocytes % (Manual) Seg Neutrophils # Seg Neutrophils # Man Lymphocytes # (Manual) Monocytes # (Manual) PT 15.9 H INR 1.28 H APTT Heparin Anti-Xa Level 0.12 L POC ABG pH POC ABG pCO2 POC ABG pO2 Sodium Potassium Chloride Carbon Dioxide BUN Creatinine Glucose POC Glucose 256 H Calcium Phosphorus Lactate Dehydrogenase Total Creatine Kinase NT-Pro-B Natriuret Pep Total Protein Albumin Cmtfr-8-Cizqpyinp Fhnjf-9-Pmdaegglg Beta Globulins PEP Interpretation Cholesterol LDL Cholesterol Direct Urine Creatinine 04/23/16 04/24/16 04/24/16 23:59 05:29 06:03 WBC RBC Hgb Hct MCV MCH MCHC RDW Plt Count Lymph % (Auto) [place] % (Auto) Lymph # [place] # Baso # Seg Neutrophils % Seg Neuts % (Manual) Lymphocytes % (Manual) Seg Neutrophils # Seg Neutrophils # Man Lymphocytes # (Manual) Monocytes # (Manual) PT INR APTT Heparin Anti-Xa Level POC ABG pH 7.464 H POC ABG pCO2 32.4 L POC ABG pO2 115 H Sodium Potassium Chloride Carbon Dioxide BUN Creatinine Glucose POC Glucose 176 H 256 H Calcium Phosphorus Lactate Dehydrogenase Total Creatine Kinase NT-Pro-B Natriuret Pep Total Protein Albumin Rpjtn-3-Dbsgntsio [place]-5-Deskazmuz Beta Globulins PEP Interpretation Cholesterol LDL Cholesterol Direct Urine Creatinine 04/24/16 04/24/16 04/24/16 07:59 12:10 17:17 WBC RBC Hgb Hct MCV MCH MCHC RDW Plt Count Lymph % (Auto) [place] % (Auto) Lymph # [place] # Baso # Seg Neutrophils % Seg Neuts % (Manual) Lymphocytes % (Manual) Seg Neutrophils # Seg Neutrophils # Man Lymphocytes # (Manual) Monocytes # (Manual) PT INR APTT Heparin Anti-Xa Level 0.18 L POC ABG pH POC ABG pCO2 POC ABG pO2 Sodium Potassium Chloride Carbon Dioxide BUN Creatinine Glucose POC Glucose 304 H 325 H Calcium Phosphorus Lactate Dehydrogenase Total Creatine Kinase NT-Pro-B Natriuret Pep Total Protein Albumin Moztq-5-Wgtfdxcri Vjppo-8-Nivctfpro Beta Globulins PEP Interpretation Cholesterol LDL Cholesterol Direct Urine Creatinine 04/25/16 04/25/16 04/25/16 00:52 06:40 06:44 WBC RBC Hgb Hct MCV MCH MCHC RDW Plt Count Lymph % (Auto) [place] % (Auto) Lymph # [place] # Baso # Seg Neutrophils % Seg Neuts % (Manual) Lymphocytes % (Manual) Seg Neutrophils # Seg Neutrophils # Man Lymphocytes # (Manual) Monocytes # (Manual) PT INR APTT Heparin Anti-Xa Level 0.11 L POC ABG pH POC ABG pCO2 POC ABG pO2 Sodium Potassium Chloride Carbon Dioxide BUN Creatinine Glucose POC Glucose 212 H 184 H Calcium Phosphorus Lactate Dehydrogenase Total Creatine Kinase NT-Pro-B Natriuret Pep Total Protein Albumin Ybibe-1-Jxtqolzvc Fchck-4-Tctvbtufq Beta Globulins PEP Interpretation Cholesterol LDL Cholesterol Direct Urine Creatinine 04/25/16 04/25/1616 11:40 13:26 17:27 WBC RBC Hgb Hct MCV MCH MCHC RDW Plt Count Lymph % (Auto) [place] % (Auto) Lymph # [place] # Baso # Seg Neutrophils % Seg Neuts % (Manual) Lymphocytes % (Manual) Seg Neutrophils # Seg Neutrophils # Man Lymphocytes # (Manual) Monocytes # (Manual) PT INR APTT Heparin Anti-Xa Level 0.21 L POC ABG pH POC ABG pCO2 POC ABG pO2 Sodium Potassium Chloride Carbon Dioxide BUN Creatinine Glucose POC Glucose 206 H 204 H Calcium Phosphorus Lactate Dehydrogenase Total Creatine Kinase NT-Pro-B Natriuret Pep Total Protein Albumin Ritmm-6-Bjqodqqnf Amkaa-4-Measkpqgy Beta Globulins PEP Interpretation Cholesterol LDL Cholesterol Direct Urine Creatinine 04/25/16 04/26/16 04/26/16 23:46 06:31 11:51 WBC RBC Hgb Hct MCV MCH MCHC RDW Plt Count Lymph % (Auto) [place] % (Auto) Lymph # [place] # Baso # Seg Neutrophils % Seg Neuts % (Manual) Lymphocytes % (Manual) Seg Neutrophils # Seg Neutrophils # Man Lymphocytes # (Manual) Monocytes # (Manual) PT INR APTT Heparin Anti-Xa Level POC ABG pH POC ABG pCO2 POC ABG pO2 Sodium Potassium Chloride Carbon Dioxide BUN Creatinine Glucose POC Glucose 162 H 148 H 178 H Calcium Phosphorus Lactate Dehydrogenase Total Creatine Kinase NT-Pro-B Natriuret Pep Total Protein Albumin Tcppu-2-Jzzvnmopn Xllar-5-Fbwazsmhs Beta Globulins PEP Interpretation Cholesterol LDL Cholesterol Direct Urine Creatinine 04/26/16 04/26/16 04/26/16 12:17 16:16 18:14 WBC RBC Hgb Hct MCV MCH MCHC RDW Plt Count Lymph % (Auto) [place] % (Auto) Lymph # [place] # Baso # Seg Neutrophils % Seg Neuts % (Manual) Lymphocytes % (Manual) Seg Neutrophils # Seg Neutrophils # Man Lymphocytes # (Manual) Monocytes # (Manual) PT INR APTT Heparin Anti-Xa Level POC ABG pH 7.513 H POC ABG pCO2 POC ABG pO2 76 L Sodium Potassium Chloride Carbon Dioxide BUN Creatinine Glucose POC Glucose 186 H 172 H Calcium Phosphorus Lactate Dehydrogenase Total Creatine Kinase NT-Pro-B Natriuret Pep Total Protein Albumin Xcspm-8-Iogscsvqk Rckdv-7-Ykgsrisyj Beta Globulins PEP Interpretation Cholesterol LDL Cholesterol Direct Urine Creatinine 12/04/26/16 04/27/16 19:27 23:28 04:21 WBC 13.1 H RBC 2.99 L Hgb 7.8 L Hct 24.0 L MCV 81 L MCH 26 L MCHC RDW 16.7 H Plt Count 486 H Lymph % (Auto) 12.5 L [place] % (Auto) 7.9 H Lymph # [place] # 1.0 H Baso # Seg Neutrophils % 77.5 H Seg Neuts % (Manual) Lymphocytes % (Manual) Seg Neutrophils # 10.2 H Seg Neutrophils # Man Lymphocytes # (Manual) Monocytes # (Manual) PT INR APTT Heparin Anti-Xa Level 0.22 L POC ABG pH POC ABG pCO2 POC ABG pO2 Sodium Potassium Chloride Carbon Dioxide BUN Creatinine Glucose POC Glucose 141 H Calcium Phosphorus Lactate Dehydrogenase Total Creatine Kinase NT-Pro-B Natriuret Pep Total Protein Albumin Jbjht-9-Itdmxioby Yaemw-7-Aljsejlfn Beta Globulins PEP Interpretation Cholesterol LDL Cholesterol Direct Urine Creatinine 04/27/16 04/27/16 04/27/16 04:21 05:46 11:04 WBC RBC Hgb Hct MCV MCH MCHC RDW Plt Count Lymph % (Auto) [place] % (Auto) Lymph # [place] # Baso # Seg Neutrophils % Seg Neuts % (Manual) Lymphocytes % (Manual) Seg Neutrophils # Seg Neutrophils # Man Lymphocytes # (Manual) Monocytes # (Manual) PT INR APTT Heparin Anti-Xa Level POC ABG pH 7.489 H POC ABG pCO2 POC ABG pO2 71 L Sodium Potassium Chloride Carbon Dioxide BUN Creatinine 0.6 L Glucose 187 H POC Glucose 192 H Calcium 8.0 L Phosphorus Lactate Dehydrogenase Total Creatine Kinase NT-Pro-B Natriuret Pep Total Protein 6.0 L Albumin 2.0 L Mmhel-2-Suocvyter Wkyal-9-Uqmijlqeg Beta Globulins PEP Interpretation Cholesterol LDL Cholesterol Direct Urine Creatinine 04/27/16 04/27/16 04/27/16 14:12 21:58 23:38 WBC RBC Hgb Hct MCV MCH MCHC RDW Plt Count Lymph % (Auto) [place] % (Auto) Lymph # [place] # Baso # Seg Neutrophils % Seg Neuts % (Manual) Lymphocytes % (Manual) Seg Neutrophils # Seg Neutrophils # Man Lymphocytes # (Manual) Monocytes # (Manual) PT INR APTT Heparin Anti-Xa Level 0.24 L POC ABG pH POC ABG pCO2 POC ABG pO2 Sodium Potassium Chloride Carbon Dioxide BUN Creatinine Glucose POC Glucose 216 H 181 H Calcium Phosphorus Lactate Dehydrogenase Total Creatine Kinase NT-Pro-B Natriuret Pep Total Protein Albumin Wgcrw-1-Gqcwbuljz Vimyc-3-Oxydmlaap Beta Globulins PEP Interpretation Cholesterol LDL Cholesterol Direct Urine Creatinine 04/28/16 04/28/16 04:28 05:52 WBC RBC Hgb Hct MCV MCH MCHC RDW Plt Count Lymph % (Auto) [place] % (Auto) Lymph # [place] # Baso # Seg Neutrophils % Seg Neuts % (Manual) Lymphocytes % (Manual) Seg Neutrophils # Seg Neutrophils # Man Lymphocytes # (Manual) Monocytes # (Manual) PT INR APTT Heparin Anti-Xa Level POC ABG pH 7.524 H POC ABG pCO2 POC ABG pO2 Sodium Potassium Chloride Carbon Dioxide BUN Creatinine Glucose POC Glucose 254 H Calcium Phosphorus Lactate Dehydrogenase Total Creatine Kinase NT-Pro-B Natriuret Pep Total Protein Albumin Aqxei-7-Xpqucqqlo Rijtc-4-Zlyznbnxh Beta Globulins PEP Interpretation Cholesterol LDL Cholesterol Direct Urine Creatinine
--- NOTE | 2016-04-28 16:43 | Progress Note ---
Assessment and Plan 1. Bedside tracheostomy tomorrow (04/29). Hold heparin drip at midnight tonight. Hold tube feeds at midnight. Subjective Date of service: 04/28/16 Narrative: The patient remains intubated. Objective Vital Signs - 12hr 04/28/16 04/28/16 04/28/16 05:00 05:30 06:00 Temperature Pulse Rate 82 83 82 Pulse Rate [ Anterior Bilateral Throughout] Respiratory 15 12 15 Rate Respiratory Rate [Anterior Bilateral Throughout] Blood Pressure 133/75 124/79 137/75 O2 Sat by Pulse 99 99 99 Oximetry 04/28/16 04/28/16 04/28/16 06:30 06:32 07:00 Temperature Pulse Rate 82 83 84 Pulse Rate [ Anterior Bilateral Throughout] Respiratory 14 17 13 Rate Respiratory Rate [Anterior Bilateral Throughout] Blood Pressure 142/78 142/78 141/80 O2 Sat by Pulse 100 100 99 Oximetry 04/28/16 04/28/16 04/28/16 07:18 07:30 08:00 Temperature 99.3 F Pulse Rate 82 86 91 H Pulse Rate [ 91 H Anterior Bilateral Throughout] Respiratory 29 H 29 H Rate Respiratory 18 Rate [Anterior Bilateral Throughout] Blood Pressure 142/78 138/82 148/85 O2 Sat by Pulse 100 99 98 Oximetry 04/28/16 04/28/16 04/28/16 08:15 08:30 09:00 Temperature Pulse Rate 94 H 93 H Pulse Rate [ 90 Anterior Bilateral Throughout] Respiratory 14 20 Rate Respiratory 20 Rate [Anterior Bilateral Throughout] Blood Pressure 145/90 135/83 O2 Sat by Pulse 99 98 Oximetry 04/28/16 04/28/16 04/28/16 09:06 09:30 09:35 Temperature Pulse Rate 91 H 94 H 95 H Pulse Rate [ Anterior Bilateral Throughout] Respiratory 19 18 Rate Respiratory Rate [Anterior Bilateral Throughout] Blood Pressure 135/83 143/89 143/89 O2 Sat by Pulse 98 100 Oximetry 04/28/16 04/28/16 04/28/16 09:36 09:37 10:00 Temperature Pulse Rate 95 H 87 Pulse Rate [ Anterior Bilateral Throughout] Respiratory 17 Rate Respiratory Rate [Anterior Bilateral Throughout] Blood Pressure 143/89 143/89 122/75 O2 Sat by Pulse 98 Oximetry 04/28/16 04/28/16 04/28/16 10:08 10:30 11:00 Temperature Pulse Rate 95 H 85 88 Pulse Rate [ Anterior Bilateral Throughout] Respiratory 10 L 20 Rate Respiratory Rate [Anterior Bilateral Throughout] Blood Pressure 143/89 149/80 157/89 O2 Sat by Pulse 98 100 100 Oximetry 04/28/16 04/28/16 04/28/16 11:22 11:30 12:00 Temperature 98.2 F Pulse Rate 84 86 89 Pulse Rate [ Anterior Bilateral Throughout] Respiratory 17 18 24 Rate Respiratory Rate [Anterior Bilateral Throughout] Blood Pressure 157/89 139/79 146/95 O2 Sat by Pulse 99 99 100 Oximetry 04/28/16 04/28/16 04/28/16 12:05 12:30 13:00 Temperature Pulse Rate 83 81 96 H Pulse Rate [ Anterior Bilateral Throughout] Respiratory 19 16 21 Rate Respiratory Rate [Anterior Bilateral Throughout] Blood Pressure 146/95 123/71 175/100 O2 Sat by Pulse 99 98 100 Oximetry 04/28/16 04/28/16 04/28/16 13:30 13:34 13:43 Temperature Pulse Rate 89 85 Pulse Rate [ 88 Anterior Bilateral Throughout] Respiratory 15 17 Rate Respiratory 17 Rate [Anterior Bilateral Throughout] Blood Pressure 137/81 137/81 O2 Sat by Pulse 98 99 Oximetry 04/28/16 04/28/16 04/28/16 14:00 14:04 14:22 Temperature Pulse Rate 98 H 97 H Pulse Rate [ 89 Anterior Bilateral Throughout] Respiratory 11 L Rate Respiratory 18 Rate [Anterior Bilateral Throughout] Blood Pressure 140/87 140/87 O2 Sat by Pulse 100 Oximetry 04/28/16 04/28/16 04/28/16 14:30 15:00 15:52 Temperature Pulse Rate 91 H 88 88 Pulse Rate [ Anterior Bilateral Throughout] Respiratory 23 33 H Rate Respiratory Rate [Anterior Bilateral Throughout] Blood Pressure 116/74 122/80 122/80 O2 Sat by Pulse 99 99 99 Oximetry - ENT normal pinna - Neck no masses, trachea midline - Labs 04/27/16 04:21 04/27/16 04:21
[2016-04-28] MEDS: TYLENOL PO PRN (21:50)
--- NOTE | 2016-04-28 23:00 | Anesthesia Consultation ---
Anesthesia Consult and Med Hx Date of service: 04/28/16 - Airway ROM Head & Neck: Adequate Mental/Hyoid Distance: Adequate Intubation Access Assessment: Probably Good (intubated, unable to assess) - Pulmonary Exam CTA: Yes - Cardiac Exam Cardiac Exam: RRR - Pre-Operative Health Status ASA Pre-Surgery Classification: ASA4 Proposed Anesthetic Plan: MAC - Pulmonary Hx Asthma: No Hx Respiratory Symptoms: Yes (Respiratory failure. 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
[2016-04-29] MEDS: DUONEB 0.5 MG-3 MG/3 ML SOLN IH SCH ×4 (02:27→20:02)
[2016-04-29] MEDS: NOVOLOG SUB-Q SCH ×4 (03:08→18:00)
[2016-04-29] MEDS: NORMODYNE PO SCH ×4 (03:08→23:06)
[2016-04-29] MEDS: ZESTRIL PO SCH ×3 (03:09→23:05)
[2016-04-29 04:19] LABS: Basophils % (Auto) 0.3 % (0.0-1.8); Eosinophils % (Auto) 0.6 % (0.0-4.3); Hematocrit 20.6 % (35.5-45.6); Hemoglobin 6.9 gm/dl (11.8-15.2); Mean Corpuscular HGB Conc 33 % (32-34); Mean Corpuscular Hemoglobin 27 pg (28-32); Mean Corpuscular Volume 81 fl (84-94); Platelet Count 513 K/mm3 (140-440); Red Blood Count 2.56 M/mm3 (3.65-5.03); Red Cell Distribution Width 16.2 % (13.2-15.2); White Blood Count 13.4 K/mm3 (4.5-11.0)
[2016-04-29 04:38] LABS: Anion Gap 16 mmol/L; Blood Urea Nitrogen 27 mg/dL (9-20); Calcium 8.1 mg/dL (8.4-10.2); Carbon Dioxide 28 mmol/L (22-30); Chloride 102.6 mmol/L (98-107); Glucose 204 mg/dL (75-100); Potassium 3.7 mmol/L (3.6-5.0); Sodium 143 mmol/L (137-145)
[2016-04-29 05:37] LABS: ISTAT Base Excess 6; ISTAT HCO3 29.2; ISTAT PCO2 37.3 (35-45); ISTAT PH 7.501 (7.35-7.45); ISTAT PO2 76 (80-105); ISTAT SO2 96; ISTAT TCO2 30
[2016-04-29] MEDS ORDERED: NACL 0.9% 500 ML 500 ML IV ONE (08:56)
--- NOTE | 2016-04-29 09:00 | Progress Note ---
Assessment and Plan Assessment and plan: 1. Acute respiratory failure. Patient reintubated on 04/17/16. Continue mechanical ventilation per pulmonary. Tracheostomy scheduled tentatively for . Heparin drip for now. 2. Acute CVA. CT scan revealed acute ischemic infarct in the right cerebellum. MRI reveals subacute infarct in the right cerebellar hemisphere with associated edema and mass effect as previously described. Patient also with multiple areas of acute infarct in the left occipital and frontal lobes that are most likely embolic. LIZZIE done- No thrombus but decreased flow. Cardiology recommends anticoagulation with Coumadin. 3. Hypotension. Resolved. Patient currently off pressors of Levophed. Echocardiogram revealed EF of 50-55%. 4. Encephalopathy. EEG normal. Etiology likely secondary to CVA +/- hypertension. 5. Group B strep UTI-treated 6. Accelerated hypertension. Continue antihypertensive medications 7. CAD-stable 8. Seizures-continue Keppra. EEG normal. 9. Type 2 diabetes mellitus. Glycemic control. 10. History of aortic dissection status post repair. 11. History of prosthetic aortic valve replacement. Echo with normal function on 08/2015. 12. DVT prophylaxis-on heparin drip. 13. GI prophylaxis-Pepcid 14. Oropharyngeal dysphagia. Patient failed swallow evaluation. Status post PEG placement on 04/17. 15. Anemia. Etiology is unknown. Check iron studies and Hemoccult of stool. Type and cross and transfuse 2 units. The high probability of a clinically significant, sudden or life threatening deterioration of the [respiratory and neurological] system(s) required my full and direct attention, intervention and personal management. The aggregate critical care time was [31] minutes. This time is in addition to time spent performing reported procedures but includes the following: [x] Data Review and interpretation [x] Patient assessment and monitoring of vital signs [x] Documentation [x] Medication orders and management History Interval history: 60 years old -[place] male with nonobstructive CAD per recent CAD, hypertension, hyperlipidemia, bioprosthetic aortic valve replacement, chronic kidney disease, diabetes and seizure disorder who was initially admitted for metabolic encephalopathy with hypernatremia. Patient developed respiratory failure during this hospitalization on 03/27 and was intubated placed on mechanical ventilation. Patient was later extubated during his hospitalization but was reintubated on the evening of 04/16/16. Patient now remains intubated on mechanical ventilation. Patient is also status post PEG tube placement on . Patient currently intubated and on heparin drip Hospitalist Physical - Constitutional Vitals: Temp Pulse Resp BP Pulse Ox 99.0 F 70 18 105/57 100 04/29/16 08:00 04/29/16 08:30 04/29/16 08:03 04/29/16 08:30 04/29/16 08:30 General appearance: Present: no acute distress, other (intubated) - EENT Eyes: Present: PERRL, EOM intact ENT: hearing intact, clear oral mucosa, dentition normal - Neck Neck: Present: supple, normal ROM - Respiratory Respiratory effort: normal Respiratory: bilateral: diminished - Cardiovascular Rhythm: regular Heart Sounds: Present: S1 & S2. Absent: gallop, rub - Extremities Extremities: no ischemia, No edema, Full ROM - Abdominal General gastrointestinal: soft, non-tender, non-distended, normal bowel sounds - Integumentary Integumentary: Present: clear, warm, dry - Neurologic Neurologic: CNII-XII intact, moves all extremities Results - Labs CBC & Chem 7: 04/29/16 04:00 04/29/16 04:00 Labs: Laboratory Last Values WBC 13.4 K/mm3 (4.5-11.0) H 04/29/16 04:00 RBC 2.56 M/mm3 (3.65-5.03) L 04/29/16 04:00 Hgb 6.9 gm/dl (11.8-15.2) L 04/29/16 04:00 Hct 20.6 % (35.5-45.6) L 04/29/16 04:00 MCV 81 fl (84-94) L 04/29/16 04:00 MCH 27 pg (28-32) L 04/29/16 04:00 MCHC 33 % (32-34) 04/29/16 04:00 RDW 16.2 % (13.2-15.2) H 04/29/16 04:00 Plt Count 513 K/mm3 (140-440) H 04/29/16 04:00 Lymph % (Auto) 10.0 % (13.4-35.0) L 04/29/16 04:00 [place] % (Auto) 12.0 % (0.0-7.3) H 04/29/16 04:00 Eos % (Auto) 0.6 % (0.0-4.3) 04/29/16 04:00 Baso % (Auto) 0.3 % (0.0-1.8) 04/29/16 04:00 Lymph # 1.3 K/mm3 (1.2-5.4) 04/29/16 04:00 [place] # 1.6 K/mm3 (0.0-0.8) H 04/29/16 04:00 Eos # 0.1 K/mm3 (0.0-0.4) 04/29/16 04:00 Baso # 0.0 K/mm3 (0.0-0.1) 04/29/16 04:00 Add Manual Diff Complete 04/17/16 12:17 Total Counted 100 04/17/16 12:17 Seg Neutrophils % 77.1 % (40.0-70.0) H 04/29/16 04:00 Seg Neuts % (Manual) 61.0 % (40.0-70.0) 04/17/16 12:17 Band Neutrophils % 27.0 % 04/17/16 12:17 Lymphocytes % (Manual) 3.0 % (13.4-35.0) L 04/17/16 12:17 Reactive Lymphs % (Man) 0 % 04/17/16 12:17 Monocytes % (Manual) 4.0 % (0.0-7.3) 04/17/16 12:17 Eosinophils % (Manual) 0 % (0.0-4.3) 04/17/16 12:17 Basophils % (Manual) 0 % (0.0-1.8) 04/17/16 12:17 Metamyelocytes % 1.0 % 04/17/16 12:17 Myelocytes % 1.0 % 04/17/16 12:17 Promyelocytes % 3.0 % 04/17/16 12:17 Blast Cells % 0 % 04/17/16 12:17 Nucleated RBC % Not Reportable 04/17/16 12:17 Seg Neutrophils # 10.4 K/mm3 (1.8-7.7) H 04/29/16 04:00 Seg Neutrophils # Man 10.1 K/mm3 (1.8-7.7) H 04/17/16 12:17 Band Neutrophils # 4.5 K/mm3 04/17/16 12:17 Lymphocytes # (Manual) 0.5 K/mm3 (1.2-5.4) L 04/17/16 12:17 Abs React Lymphs (Man) 0.0 K/mm3 04/17/16 12:17 Monocytes # (Manual) 0.7 K/mm3 (0.0-0.8) 04/17/16 12:17 Eosinophils # (Manual) 0.0 K/mm3 (0.0-0.4) 04/17/16 12:17 Basophils # (Manual) 0.0 K/mm3 (0.0-0.1) 04/17/16 12:17 Metamyelocytes # 0.2 K/mm3 04/17/16 12:17 Myelocytes # 0.2 K/mm3 04/17/16 12:17 Promyelocytes # 0.5 K/mm3 04/17/16 12:17 Blast Cells # 0.0 K/mm3 04/17/16 12:17 WBC Morphology Not Reportable 04/17/16 12:17 Hypersegmented Neuts Not Reportable 04/17/16 12:17 Hyposegmented Neuts Not Reportable 04/17/16 12:17 Hypogranular Neuts Not Reportable 04/17/16 12:17 Smudge Cells Not Reportable 04/17/16 12:17 Toxic Granulation Not Reportable 04/17/16 12:17 Toxic Vacuolation Not Reportable 04/17/16 12:17 Dohle Bodies Not Reportable 04/17/16 12:17 Pelger-Huet Anomaly Not Reportable 04/17/16 12:17 Corina Rods Not Reportable 04/17/16 12:17 Platelet Estimate Appears normal 04/17/16 12:17 Clumped Platelets Not Reportable 04/17/16 12:17 Plt Clumps, EDTA Not Reportable 04/17/16 12:17 Large Platelets Not Reportable 04/17/16 12:17 Giant Platelets Not Reportable 04/17/16 12:17 Platelet Satelliting Not Reportable 04/17/16 12:17 Plt Morphology Comment Not Reportable 04/17/16 12:17 RBC Morphology Not Reportable 04/17/16 12:17 Dimorphic RBCs Not Reportable 04/17/16 12:17 Polychromasia Few 04/17/16 12:17 Hypochromasia Not Reportable 04/17/16 12:17 Poikilocytosis Not Reportable 04/17/16 12:17 Anisocytosis 1+ 04/17/16 12:17 Microcytosis Few 04/17/16 12:17 Macrocytosis Not Reportable 04/17/16 12:17 Spherocytes Not Reportable 04/17/16 12:17 Pappenheimer Bodies Not Reportable 04/17/16 12:17 Sickle Cells Not Reportable 04/17/16 12:17 Target Cells Not Reportable 04/17/16 12:17 Tear Drop Cells Not Reportable 04/17/16 12:17 Ovalocytes Not Reportable 04/17/16 12:17 Helmet Cells Not Reportable 04/17/16 12:17 [place] Bodies Not Reportable 04/17/16 12:17 [place] Rings Not Reportable 04/17/16 12:17 [place] Cells Not Reportable 04/17/16 12:17 Bite Cells Not Reportable 04/17/16 12:17 Crenated Cell Not Reportable 04/17/16 12:17 Elliptocytes Not Reportable 04/17/16 12:17 Acanthocytes (Spur) Not Reportable 04/17/16 12:17 Rouleaux Not Reportable 04/17/16 12:17 Hemoglobin C Crystals Not Reportable 04/17/16 12:17 Schistocytes Not Reportable 04/17/16 12:17 Malaria parasites Not Reportable 04/17/16 12:17 Gideon Bodies Not Reportable 04/17/16 12:17 Hem Pathologist Commnt No 04/17/16 12:17 PT 15.9 Sec. (12.2-14.9) H 04/23/16 10:45 INR 1.28 (0.87-1.13) H 04/23/16 10:45 APTT 42.1 Sec. (24.2-36.6) H 04/04/16 09:55 Heparin Anti-Xa Level 0.15 U.I./ml (0.3-0.7) L 04/28/16 19:52 POC ABG pH 7.501 (7.35-7.45) H 04/29/16 04:29 POC ABG pCO2 37.3 (35-45) 04/29/16 04:29 POC ABG pO2 76 (80-105) L 04/29/16 04:29 POC ABG HCO3 29.2 04/29/16 04:29 POC ABG Total CO2 30 04/29/16 04:29 POC ABG O2 Sat 96 04/29/16 04:29 POC ABG Base Excess 6 04/29/16 04:29 VBG pH 7.418 (7.320-7.420) 03/24/16 14:00 FiO2 25 % 04/29/16 04:29 Sodium 143 mmol/L (137-145) 04/29/16 04:00 Potassium 3.7 mmol/L (3.6-5.0) 04/29/16 04:00 Chloride 102.6 mmol/L (98-107) 04/29/16 04:00 Carbon Dioxide 28 mmol/L (22-30) 04/29/16 04:00 Anion Gap 16 mmol/L 04/29/16 04:00 BUN 27 mg/dL (9-20) H 04/29/16 04:00 Creatinine 1.0 mg/dL (0.8-1.5) D 04/29/16 04:00 Estimated GFR > 60 ml/min 04/29/16 04:00 BUN/Creatinine Ratio 27.00 % 04/29/16 04:00 Glucose 204 mg/dL (75-100) H 04/29/16 04:00 POC Glucose 192 (70-105) H 04/29/16 06:03 Hemoglobin A1c 9.6 % (4-6) H 03/24/16 14:00 Lactic Acid 1.6 mmol/L (0.7-2.0) 04/17/16 12:17 Calcium 8.1 mg/dL (8.4-10.2) L 04/29/16 04:00 Phosphorus 2.3 mg/dL (2.5-4.5) L D 03/30/16 04:00 Magnesium 1.9 mg/dL (1.7-2.3) 03/30/16 04:00 Total Bilirubin < 0.2 mg/dL (0.1-1.2) 04/27/16 04:21 AST 18 units/L (5-40) 04/27/16 04:21 ALT 39 units/L (7-56) 04/27/16 04:21 Alkaline Phosphatase 103 units/L (35-129) 04/27/16 04:21 Lactate Dehydrogenase 460 units/L (91-180) H 03/25/16 05:56 Total Creatine Kinase 356 units/L (55-170) H 03/28/16 13:29 Troponin T < 0.010 ng/mL (0.00-0.029) 03/28/16 13:29 NT-Pro-B Natriuret Pep 897.9 pg/mL (0-900) 04/03/16 04:10 Serum Total Protein 7.1 g/dL (6.1-8.1) 03/25/16 13:00 Total Protein 6.0 g/dL (6.3-8.2) L 04/27/16 04:21 Albumin 2.0 g/dL (3.9-5) L 04/27/16 04:21 Albumin/Globulin Ratio 0.5 % 04/27/16 04:21 Ytmun-6-Maootjojg See scanned report 03/31/16 12:20 Urcej-9-Lakafcjjk See scanned report 03/31/16 12:20 Beta Globulins See scanned report 03/31/16 12:20 Vwve-0-Zsnrxunysfrzv 2.46 mg/L (<=2.51) 03/25/16 13:00 Gamma Globulins See scanned report 03/31/16 12:20 Abnorm Protein Band 1 see below (()) 03/25/16 13:00 PEP Interpretation See scanned report 03/31/16 12:20 Triglycerides 88 mg/dL (2-149) 03/24/16 17:58 Cholesterol 221 mg/dL (50-199) H 03/24/16 17:58 LDL Cholesterol Direct 146 mg/dL (50-130) H 03/24/16 17:58 HDL Cholesterol 58 mg/dL (40-59) 03/24/16 17:58 Cholesterol/HDL Ratio 3.81 % 03/24/16 17:58 Urine Color Yellow (Yellow) 03/24/16 14:27 Urine Turbidity Clear (Clear) 03/24/16 14:27 Urine pH 5.0 (5.0-7.0) 03/24/16 14:27 Ur Specific [place] 1.017 (1.003-1.030) 03/24/16 14:27 Urine Protein <15 mg/dl mg/dL (Negative) 03/24/16 14:27 Urine Glucose (UA) >=500 mg/dL (Negative) 03/24/16 14:27 Urine Ketones Neg mg/dL (Negative) 03/24/16 14:27 Urine Blood Sm (Negative) 03/24/16 14:27 Urine Nitrite Neg (Negative) 03/24/16 14:27 Urine Bilirubin Neg (Negative) 03/24/16 14:27 Urine Urobilinogen < 2.0 mg/dL (<2.0) 03/24/16 14:27 Ur Leukocyte Esterase Neg (Negative) 03/24/16 14:27 Urine WBC (Auto) 2.0 /HPF (0.0-6.0) 03/24/16 14:27 Urine RBC (Auto) < 1.0 /HPF (0.0-6.0) 03/24/16 14:27 U Epithel Cells (Auto) 4.0 /HPF (0-13.0) 03/24/16 14:27 Hyaline Casts 1 /LPF 03/24/16 14:27 Urine Mucus Few /HPF 03/24/16 14:27 Ur Random Creatinine See scanned report 03/31/16 12:20 U Random Total Protein See scanned report 03/31/16 12:20 Urine Creatinine 85.5 mg/dL (0.1-20.0) H 04/20/16 11:50 Protein/Creatinin Ratio See scanned report 03/31/16 12:20 Urine Sodium 17 mEq/L 04/20/16 11:50 U Abnormal Prot Band 1 See scanned report 03/31/16 12:20 U Abnormal Prot Band 2 See scanned report 03/31/16 12:20 U Abnormal Prot Band 3 See scanned report 03/31/16 12:20 Ketones 1.0 mg/dL (0.2-2.8) 03/24/16 14:00
--- NOTE | 2016-04-29 09:20 | Anesthesia Day of Surgery ---
Anesthesia Day of Surgery - Day of Surgery Patient Examined: Yes Patient H&P Reviewed: Yes Patient is NPO: Yes Beta Blockers: Yes
[2016-04-29] MEDS ORDERED: DIPRIVAN 10 MG/ML IV ONE (09:36)
[2016-04-29] MEDS ORDERED: SUBLIMAZE ONE (09:36)
[2016-04-29] MEDS ORDERED: ZEMURON IV ONE ×2 (09:37→11:27)
[2016-04-29] MEDS: KEPPRA PO SCH ×2 (09:43→23:07)
[2016-04-29] MEDS: NORVASC PO SCH (09:44)
[2016-04-29] MEDS ORDERED: ePHEDrine SULFATE ONE (09:44)
[2016-04-29] MEDS: PEPCID PO SCH ×2 (09:44→23:06)
[2016-04-29] MEDS: CORDARONE PO SCH (09:44)
[2016-04-29] MEDS: BABY ASPIRIN PO SCH (09:44)
[2016-04-29] MEDS: LEVEMIR SUB-Q SCH (09:46)
[2016-04-29] MEDS ORDERED: DIPRIVAN 10 MG/ML 100 ML IV ONE (10:29)
[2016-04-29] MEDS ORDERED: NACL 0.9% 1000 ML 1,000 ML ONE (10:36)
[2016-04-29 10:41] LABS: Reticulocyte % 3.68 % (0.78-2.58)
[2016-04-29] MEDS ORDERED: ROBINUL ONE (10:41)
[2016-04-29 11:00] LABS: Iron 10 ug/dL (49-181); Lactate Dehydrogenase 204 units/L (91-180); Total Iron Binding Capacity 138 mcg/dL (250-450)
--- NOTE | 2016-04-29 11:07 | Post Operative Note ---
Pre-op diagnosis: Resp failure / CVA Post-op diagnosis: same Findings: as above Procedure: percutaneous dilatational tracheostomy Anesthesia: GETA Surgeon: ERICA CHAUDHRY Straight Ruling Machine Operator: FELY DONATO Estimated blood loss: minimal Pathology: none Condition: stable Disposition: ICU
--- NOTE | 2016-04-29 12:17 | XRay Report ---
AP CHEST: HISTORY: Tracheostomy placement. FINDINGS: Since 04/23/16, the endotracheal tube has been replaced by a tracheostomy which appears in good position. Ebjzuowoug-qo-[id number] cardiomegaly is stable. The lungs remain generally clear. No pneumothorax is appreciated. IMPRESSION: Tracheostomy placement, as described; otherwise, no change since the exam 6 days ago.
--- NOTE | 2016-04-29 12:27 | Operative Report ---
PREOPERATIVE DIAGNOSIS: Respiratory failure/cerebrovascular accident. POSTOPERATIVE DIAGNOSIS: Respiratory failure/cerebrovascular accident. OPERATIVE PROCEDURE: Percutaneous dilatational tracheostomy tube placement. ANESTHESIA: General endotracheal. SURGEON: Carlos Manuel Ortiz MD TRIPE COOKER: Dr. Salvador Andrade. INDICATIONS: A 61-year-old male patient with multiple medical problems, sustained CVA and respiratory failure, and he has been on a ventilator. It is unlikely he will be weaned off, for long-term maintenance purposes, tracheostomy tube was placed. He already had PEG tube placed for nutrition purposes. He is on a continuous heparin drip that has been discontinued for the past 6 hours. DESCRIPTION OF PROCEDURE: After adequate sedation and paralysis, the patient's neck was gently hyperextended by placing roll sheets under the shoulder. Neck is prepped and draped. A lower third of the neck in the anterior midline was infiltrated with local anesthetic and 1.5 cm vertical incision was made. Subcutaneous tissue was dilated. The anesthesiologist deflated the cuff of the endotracheal tube and pulled it proximally to 15 cm. The trachea was accessed using a large bore needle on the first attempt. A guidewire was passed through the needle and the needle was removed. It was dilated using a smaller dilator and later with a larger dilator with the Blue Rhino adequately. The size 8 tracheostomy tube was previously checked for cuff defects. There was none. This was placed over the guidewire adequately, and the guidewire and the inner cannula were removed. inner cannula was placed and the patient was and exhalation of carbon dioxide was confirmed both in the monitor and by the sensor. The patient maintained adequate oxygenation. Both flanges of the tracheostomy tube were anchored to the neck skin using 2-0 Prolene sutures. Appropriate adaptors were applied. He tolerated the procedure well. Chest x-ray is pending to confirm the position of the tracheostomy tube. JOB# [id number] CARMEN/ED
--- NOTE | 2016-04-29 16:35 | Post Anesthesia Evaluation ---
- Post Anesthesia Evaluation Patient Participated: No Airway Patent: Yes Stable Respiratory Function: Yes Pain Manageable: Yes Adequeate Hydration: Yes Anesthesia Complications: No Block Receding Appropriately: Not Applicable
[2016-04-29] MEDS: HEPARIN/ 0.45% NACL-25,000 UNIT/500 ML 500 ML IV SCH (16:58)
[2016-04-29 23:23] LABS: Hematocrit 26.7 % (35.5-45.6)
[2016-04-30] MEDS: DUONEB 0.5 MG-3 MG/3 ML SOLN IH SCH ×4 (02:13→19:38)
[2016-04-30 04:41] LABS: Basophils % (Auto) 0.4 % (0.0-1.8); Eosinophils % (Auto) 0.3 % (0.0-4.3); Hematocrit 29.1 % (35.5-45.6); Hemoglobin 9.3 gm/dl (11.8-15.2); Mean Corpuscular HGB Conc 32 % (32-34); Mean Corpuscular Hemoglobin 26 pg (28-32); Mean Corpuscular Volume 82 fl (84-94); Platelet Count 535 K/mm3 (140-440); Red Blood Count 3.54 M/mm3 (3.65-5.03); Red Cell Distribution Width 16.5 % (13.2-15.2); White Blood Count 13.8 K/mm3 (4.5-11.0)
[2016-04-30 05:00] LABS: BUN/Creatinine Ratio 28.57; Blood Urea Nitrogen 20 mg/dL (9-20); Calcium 8.3 mg/dL (8.4-10.2); Carbon Dioxide 27 mmol/L (22-30); Chloride 104.9 mmol/L (98-107); Glucose 242 mg/dL (75-100); Potassium 4.2 mmol/L (3.6-5.0); Sodium 146 mmol/L (137-145)
[2016-04-30 05:01] LABS: Anion Gap 18 mmol/L
[2016-04-30 05:14] LABS: ISTAT Base Excess 5; ISTAT HCO3 27.4; ISTAT PCO2 33.6 (35-45); ISTAT PH 7.519 (7.35-7.45); ISTAT PO2 79 (80-105); ISTAT SO2 97; ISTAT TCO2 28
[2016-04-30] MEDS: NOVOLOG SUB-Q SCH ×4 (06:09→18:08)
--- NOTE | 2016-04-30 09:19 | Progress Note ---
Assessment and Plan Acute respiratory failure. Bedside evaluation showed that the patient had a rapid shallow breathing index of 80-90, so we will initiate on spontaneous breathing trial with pressure support/CPAP 8 / 5 cm H2O Stroke.unchanged. No neurological improvement. AMS. No change . Looks less persistently responsive HTN Elevated blood sugar. Will benefit from more tight control. Discussed with nurse is an hospitalist Recommendations SBT. If pressure support and CPAP was tolerated upon is to switch them to TPIECEs. Aggressive sliding-scale with goal of maintaining blood sugar between 180 and 200 Continue with placement plans Discussed in detail with RT, nursing staff. No family available at the bedside. CC time 32 min of [id number] interaction with the patient and coordination of care Subjective Date of service: 04/30/16 Principal diagnosis: CVA, acute respiratory failure Interval history: Patient nonverbal Objective Vital Signs - 12hr 04/29/16 04/29/16 04/29/16 21:24 21:26 21:30 Temperature Pulse Rate 114 H 115 H 114 H Pulse Rate [ Anterior Bilateral Throughout] Respiratory Rate [Anterior Bilateral Throughout] Blood Pressure 122/69 122/69 119/70 O2 Sat by Pulse 98 99 99 Oximetry 04/29/16 04/29/16 04/29/16 22:00 22:30 23:00 Temperature Pulse Rate 110 H 109 H 107 H Pulse Rate [ Anterior Bilateral Throughout] Respiratory Rate [Anterior Bilateral Throughout] Blood Pressure 129/72 139/79 138/73 O2 Sat by Pulse 98 99 99 Oximetry 04/29/16 04/29/16 04/29/16 23:05 23:06 23:30 Temperature Pulse Rate 107 H 106 H 111 H Pulse Rate [ Anterior Bilateral Throughout] Respiratory Rate [Anterior Bilateral Throughout] Blood Pressure 138/73 138/73 152/76 O2 Sat by Pulse 100 Oximetry 04/29/16 04/30/16 04/30/16 23:40 00:00 00:30 Temperature 100.9 F H Pulse Rate 109 H 110 H 112 H Pulse Rate [ Anterior Bilateral Throughout] Respiratory Rate [Anterior Bilateral Throughout] Blood Pressure 152/76 151/73 149/75 O2 Sat by Pulse 100 100 100 Oximetry 04/30/16 04/30/16 04/30/16 00:46 01:00 01:30 Temperature Pulse Rate 107 H 113 H 118 H Pulse Rate [ Anterior Bilateral Throughout] Respiratory Rate [Anterior Bilateral Throughout] Blood Pressure 140/74 153/81 156/87 O2 Sat by Pulse 100 100 100 Oximetry 04/30/16 04/30/16 04/30/16 02:00 02:17 02:26 Temperature Pulse Rate 119 H Pulse Rate [ 118 H 117 H Anterior Bilateral Throughout] Respiratory 15 13 Rate [Anterior Bilateral Throughout] Blood Pressure 161/80 O2 Sat by Pulse 100 Oximetry 04/30/16 04/30/16 04/30/16 02:30 03:00 03:30 Temperature Pulse Rate 115 H 109 H 107 H Pulse Rate [ Anterior Bilateral Throughout] Respiratory Rate [Anterior Bilateral Throughout] Blood Pressure 118/64 127/71 137/72 O2 Sat by Pulse 98 98 99 Oximetry 04/30/16 04/30/16 04/30/16 04:00 04:10 04:30 Temperature 100.9 F H Pulse Rate 113 H 108 H 107 H Pulse Rate [ Anterior Bilateral Throughout] Respiratory Rate [Anterior Bilateral Throughout] Blood Pressure 150/76 150/76 136/71 O2 Sat by Pulse 99 99 99 Oximetry 04/30/16 04/30/16 04/30/16 05:00 05:30 06:00 Temperature Pulse Rate 106 H 108 H 119 H Pulse Rate [ Anterior Bilateral Throughout] Respiratory Rate [Anterior Bilateral Throughout] Blood Pressure 143/73 148/80 164/83 O2 Sat by Pulse 99 100 97 Oximetry 04/30/16 04/30/16 04/30/16 07:44 08:04 08:05 Temperature 101.8 F H Pulse Rate 108 H Pulse Rate [ 105 H Anterior Bilateral Throughout] Respiratory 16 Rate [Anterior Bilateral Throughout] Blood Pressure 147/74 O2 Sat by Pulse 99 Oximetry Constitutional: no acute distress, lethargic, other (awake but not following commands) Eyes: non-icteric ENT: other (tracheotomy) Neck: supple Effort: normal Ascultation: Bilateral: clear Percussion: Bilateral: not dull Cardiovascular: regular rate and rhythm Gastrointestinal: normoactive bowel sounds, soft, non-tender Extremities: no cyanosis, no edema CBC and BMP: 04/30/16 04:10 04/30/16 04:10 ABG, PT/INR, D-dimer: ABG POC ABG pH 7.519 (7.35-7.45) H 04/30/16 04:32 POC ABG pCO2 33.6 (35-45) L 04/30/16 04:32 POC ABG pO2 79 (80-105) L 04/30/16 04:32 POC ABG HCO3 27.4 04/30/16 04:32 POC ABG Total CO2 28 04/30/16 04:32 POC ABG O2 Sat 97 04/30/16 04:32 PT/INR, D-dimer PT 15.9 Sec. (12.2-14.9) H 04/23/16 10:45 INR 1.28 (0.87-1.13) H 04/23/16 10:45 Abnormal lab findings: Abnormal Labs 03/24/16 03/24/16 03/24/16 17:58 20:25 23:23 WBC RBC Hgb Hct MCV MCH MCHC RDW Plt Count Lymph % (Auto) [place] % (Auto) Lymph # [place] # Baso # Seg Neutrophils % Seg Neuts % (Manual) Lymphocytes % (Manual) Seg Neutrophils # Seg Neutrophils # Man Lymphocytes # (Manual) Monocytes # (Manual) Percent Retic PT INR APTT Heparin Anti-Xa Level POC ABG pH POC ABG pCO2 POC ABG pO2 Sodium 169 H* Potassium 3.5 L Chloride 130.3 H Carbon Dioxide BUN 28 H Creatinine 1.8 H Glucose POC Glucose 112 H Calcium Phosphorus Iron TIBC Lactate Dehydrogenase Total Creatine Kinase NT-Pro-B Natriuret Pep Total Protein Albumin Fwvbb-7-Ltkveamkj Tikpf-9-Ugtyzismf Beta Globulins PEP Interpretation Cholesterol 221 H LDL Cholesterol Direct 146 H Vitamin B12 Urine Creatinine Crossmatch 03/25/16 03/25/16 03/25/16 05:56 05:56 05:56 WBC 21.3 H RBC 6.32 H Hgb 16.7 H Hct 52.7 H MCV 83 L MCH 27 L MCHC RDW Plt Count Lymph % (Auto) [place] % (Auto) Lymph # [place] # Baso # Seg Neutrophils % Seg Neuts % (Manual) 91.0 H Lymphocytes % (Manual) 4.0 L Seg Neutrophils # Seg Neutrophils # Man 19.4 H Lymphocytes # (Manual) 0.9 L Monocytes # (Manual) 0.9 H Percent Retic PT INR APTT Heparin Anti-Xa Level POC ABG pH POC ABG pCO2 POC ABG pO2 Sodium 172 H* Potassium 3.5 L Chloride 130.4 H Carbon Dioxide BUN 29 H Creatinine 1.8 H Glucose 187 H POC Glucose Calcium Phosphorus Iron TIBC Lactate Dehydrogenase 460 H Total Creatine Kinase NT-Pro-B Natriuret Pep Total Protein Albumin Fdcvb-8-Biyloljus Qzgwe-5-Bnenmnrfl Beta Globulins PEP Interpretation Cholesterol LDL Cholesterol Direct Vitamin B12 Urine Creatinine Crossmatch 03/25/16 03/25/16 03/25/16 07:55 12:19 13:00 WBC RBC Hgb Hct MCV MCH MCHC RDW Plt Count Lymph % (Auto) [place] % (Auto) Lymph # [place] # Baso # Seg Neutrophils % Seg Neuts % (Manual) Lymphocytes % (Manual) Seg Neutrophils # Seg Neutrophils # Man Lymphocytes # (Manual) Monocytes # (Manual) Percent Retic PT INR APTT Heparin Anti-Xa Level POC ABG pH POC ABG pCO2 POC ABG pO2 Sodium Potassium Chloride Carbon Dioxide BUN Creatinine Glucose POC Glucose 231 H 314 H Calcium Phosphorus Iron TIBC Lactate Dehydrogenase Total Creatine Kinase NT-Pro-B Natriuret Pep Total Protein Albumin 3.4 L Trdim-3-Ndzgeluyp 0.4 H Riuku-8-Brjbzemts 1.1 H Beta Globulins 0.6 H PEP Interpretation see below H Cholesterol LDL Cholesterol Direct Vitamin B12 Urine Creatinine Crossmatch 03/25/16 03/25/16 03/26/16 16:41 22:45 08:32 WBC RBC Hgb Hct MCV MCH MCHC RDW Plt Count Lymph % (Auto) [place] % (Auto) Lymph # [place] # Baso # Seg Neutrophils % Seg Neuts % (Manual) Lymphocytes % (Manual) Seg Neutrophils # Seg Neutrophils # Man Lymphocytes # (Manual) Monocytes # (Manual) Percent Retic PT INR APTT Heparin Anti-Xa Level POC ABG pH POC ABG pCO2 POC ABG pO2 Sodium Potassium Chloride Carbon Dioxide BUN Creatinine Glucose POC Glucose 444 H 326 H 360 H Calcium Phosphorus Iron TIBC Lactate Dehydrogenase Total Creatine Kinase NT-Pro-B Natriuret Pep Total Protein Albumin Sprcd-1-Spzvztxho Bmfvj-1-Huckvbvdn Beta Globulins PEP Interpretation Cholesterol LDL Cholesterol Direct Vitamin B12 Urine Creatinine Crossmatch 03/26/16 03/26/16 03/26/16 12:38 15:33 15:47 WBC RBC Hgb Hct MCV MCH MCHC RDW Plt Count Lymph % (Auto) [place] % (Auto) Lymph # [place] # Baso # Seg Neutrophils % Seg Neuts % (Manual) Lymphocytes % (Manual) Seg Neutrophils # Seg Neutrophils # Man Lymphocytes # (Manual) Monocytes # (Manual) Percent Retic PT INR APTT Heparin Anti-Xa Level POC ABG pH 7.511 H POC ABG pCO2 26.5 L POC ABG pO2 70 L Sodium Potassium Chloride Carbon Dioxide BUN Creatinine Glucose POC Glucose 280 H 174 H Calcium Phosphorus Iron TIBC Lactate Dehydrogenase Total Creatine Kinase NT-Pro-B Natriuret Pep Total Protein Albumin Btbot-4-Rjlxpiifp Jbnjn-7-Qjfnijcji Beta Globulins PEP Interpretation Cholesterol LDL Cholesterol Direct Vitamin B12 Urine Creatinine Crossmatch 03/26/16 03/26/16 03/26/16 16:47 16:47 18:51 WBC 14.0 H RBC 5.17 H Hgb Hct MCV MCH 26 L MCHC 31 L RDW Plt Count 139 L Lymph % (Auto) [place] % (Auto) Lymph # [place] # Baso # Seg Neutrophils % Seg Neuts % (Manual) Lymphocytes % (Manual) Seg Neutrophils # Seg Neutrophils # Man Lymphocytes # (Manual) Monocytes # (Manual) Percent Retic PT INR APTT Heparin Anti-Xa Level POC ABG pH POC ABG pCO2 33.9 L POC ABG pO2 150 H Sodium 164 H* Potassium 3.4 L Chloride 128.5 H Carbon Dioxide BUN 30 H Creatinine 2.2 H Glucose 121 H POC Glucose Calcium 8.1 L Phosphorus Iron TIBC Lactate Dehydrogenase Total Creatine Kinase NT-Pro-B Natriuret Pep Total Protein Albumin Xsdks-5-Imgvzrvgi Mvizz-5-Bdsikzthi Beta Globulins PEP Interpretation Cholesterol LDL Cholesterol Direct Vitamin B12 Urine Creatinine Crossmatch 03/27/16 03/27/16 03/27/16 02:19 05:47 06:02 WBC RBC Hgb Hct MCV MCH MCHC RDW Plt Count Lymph % (Auto) [place] % (Auto) Lymph # [place] # Baso # Seg Neutrophils % Seg Neuts % (Manual) Lymphocytes % (Manual) Seg Neutrophils # Seg Neutrophils # Man Lymphocytes # (Manual) Monocytes # (Manual) Percent Retic PT INR APTT Heparin Anti-Xa Level POC ABG pH POC ABG pCO2 27.3 L 30.3 L POC ABG pO2 50 L 112 H Sodium 158 H Potassium Chloride 126.7 H Carbon Dioxide 20 L BUN 25 H Creatinine 1.7 H Glucose POC Glucose Calcium 7.0 L Phosphorus Iron TIBC Lactate Dehydrogenase Total Creatine Kinase NT-Pro-B Natriuret Pep Total Protein Albumin Xwelk-2-Jcpaoyflm Tkeiy-9-Syjadsgxd Beta Globulins PEP Interpretation Cholesterol LDL Cholesterol Direct Vitamin B12 Urine Creatinine Crossmatch 03/27/16 03/27/16 03/27/16 07:51 09:20 11:45 WBC 14.2 H RBC Hgb Hct MCV 83 L MCH 27 L MCHC RDW Plt Count 113 L Lymph % (Auto) [place] % (Auto) Lymph # [place] # Baso # Seg Neutrophils % Seg Neuts % (Manual) Lymphocytes % (Manual) Seg Neutrophils # Seg Neutrophils # Man Lymphocytes # (Manual) Monocytes # (Manual) Percent Retic PT INR APTT Heparin Anti-Xa Level POC ABG pH POC ABG pCO2 POC ABG pO2 Sodium Potassium Chloride Carbon Dioxide BUN Creatinine Glucose POC Glucose 124 H 241 H Calcium Phosphorus Iron TIBC Lactate Dehydrogenase Total Creatine Kinase NT-Pro-B Natriuret Pep Total Protein Albumin Qqucj-9-Bmdfvvajc Blymw-6-Nslbzckvu Beta Globulins PEP Interpretation Cholesterol LDL Cholesterol Direct Vitamin B12 Urine Creatinine Crossmatch 03/27/16 03/27/16 03/28/16 16:39 22:03 03:29 WBC RBC Hgb Hct MCV MCH MCHC RDW Plt Count Lymph % (Auto) [place] % (Auto) Lymph # [place] # Baso # Seg Neutrophils % Seg Neuts % (Manual) Lymphocytes % (Manual) Seg Neutrophils # Seg Neutrophils # Man Lymphocytes # (Manual) Monocytes # (Manual) Percent Retic PT INR APTT Heparin Anti-Xa Level POC ABG pH POC ABG pCO2 POC ABG pO2 Sodium Potassium Chloride Carbon Dioxide BUN Creatinine Glucose POC Glucose 266 H 167 H 241 H Calcium Phosphorus Iron TIBC Lactate Dehydrogenase Total Creatine Kinase NT-Pro-B Natriuret Pep Total Protein Albumin Dhuxh-9-Vsypuodjc Ihirf-1-Mmnuukzih Beta Globulins PEP Interpretation Cholesterol LDL Cholesterol Direct Vitamin B12 Urine Creatinine Crossmatch 03/28/16 03/28/16 03/28/16 05:00 05:00 05:00 WBC RBC Hgb Hct MCV 83 L MCH 27 L MCHC RDW Plt Count 106 L Lymph % (Auto) [place] % (Auto) 10.1 H Lymph # [place] # 1.0 H Baso # Seg Neutrophils % 75.1 H Seg Neuts % (Manual) Lymphocytes % (Manual) Seg Neutrophils # Seg Neutrophils # Man Lymphocytes # (Manual) Monocytes # (Manual) Percent Retic PT INR APTT Heparin Anti-Xa Level POC ABG pH POC ABG pCO2 POC ABG pO2 Sodium 147 H D Potassium 3.1 L D Chloride 112.3 H Carbon Dioxide 21 L BUN Creatinine Glucose 208 H POC Glucose Calcium 7.0 L Phosphorus 2.2 L Iron TIBC Lactate Dehydrogenase Total Creatine Kinase NT-Pro-B Natriuret Pep Total Protein Albumin Qhnew-8-Opntoyggv Cwcpc-2-Luhmqrtzb Beta Globulins PEP Interpretation Cholesterol LDL Cholesterol Direct Vitamin B12 Urine Creatinine Crossmatch 03/28/16 03/28/16 03/28/16 05:14 08:41 10:56 WBC RBC Hgb Hct MCV MCH MCHC RDW Plt Count Lymph % (Auto) [place] % (Auto) Lymph # [place] # Baso # Seg Neutrophils % Seg Neuts % (Manual) Lymphocytes % (Manual) Seg Neutrophils # Seg Neutrophils # Man Lymphocytes # (Manual) Monocytes # (Manual) Percent Retic PT INR APTT Heparin Anti-Xa Level POC ABG pH 7.457 H POC ABG pCO2 29.7 L 27.7 L POC ABG pO2 Sodium Potassium Chloride Carbon Dioxide BUN Creatinine Glucose POC Glucose 228 H Calcium Phosphorus Iron TIBC Lactate Dehydrogenase Total Creatine Kinase NT-Pro-B Natriuret Pep Total Protein Albumin Keznf-2-Hcexqixyb Eeokm-2-Prrjrnzem Beta Globulins PEP Interpretation Cholesterol LDL Cholesterol Direct Vitamin B12 Urine Creatinine Crossmatch 03/28/16 03/28/16 03/28/16 11:37 13:29 16:22 WBC RBC Hgb Hct MCV MCH MCHC RDW Plt Count Lymph % (Auto) [place] % (Auto) Lymph # [place] # Baso # Seg Neutrophils % Seg Neuts % (Manual) Lymphocytes % (Manual) Seg Neutrophils # Seg Neutrophils # Man Lymphocytes # (Manual) Monocytes # (Manual) Percent Retic PT INR APTT Heparin Anti-Xa Level POC ABG pH POC ABG pCO2 POC ABG pO2 Sodium Potassium Chloride Carbon Dioxide BUN Creatinine Glucose POC Glucose 226 H 200 H Calcium Phosphorus Iron TIBC Lactate Dehydrogenase Total Creatine Kinase 356 H NT-Pro-B Natriuret Pep Total Protein Albumin Pxbwc-0-Yjilcixio Eqekx-0-Zlvrbqktc Beta Globulins PEP Interpretation Cholesterol LDL Cholesterol Direct Vitamin B12 Urine Creatinine Crossmatch 03/28/16 03/29/16 03/29/16 21:48 04:50 04:50 WBC RBC Hgb 11.5 L Hct 35.3 L MCV 81 L MCH 26 L MCHC RDW Plt Count 97 L Lymph % (Auto) [place] % (Auto) 11.7 H Lymph # [place] # 1.1 H Baso # Seg Neutrophils % Seg Neuts % (Manual) Lymphocytes % (Manual) Seg Neutrophils # Seg Neutrophils # Man Lymphocytes # (Manual) Monocytes # (Manual) Percent Retic PT INR APTT Heparin Anti-Xa Level POC ABG pH POC ABG pCO2 POC ABG pO2 Sodium 136 L D Potassium 3.3 L Chloride Carbon Dioxide 20 L BUN Creatinine Glucose 386 H POC Glucose 188 H Calcium 6.8 L Phosphorus 1.6 L D Iron TIBC Lactate Dehydrogenase Total Creatine Kinase NT-Pro-B Natriuret Pep Total Protein Albumin Bpgff-1-Ogbltluyx Qqgst-2-Eoqamlkqd Beta Globulins PEP Interpretation Cholesterol LDL Cholesterol Direct Vitamin B12 Urine Creatinine Crossmatch 03/29/16 03/29/16 03/29/16 08:10 11:12 16:09 WBC RBC Hgb Hct MCV MCH MCHC RDW Plt Count Lymph % (Auto) [place] % (Auto) Lymph # [place] # Baso # Seg Neutrophils % Seg Neuts % (Manual) Lymphocytes % (Manual) Seg Neutrophils # Seg Neutrophils # Man Lymphocytes # (Manual) Monocytes # (Manual) Percent Retic PT INR APTT Heparin Anti-Xa Level POC ABG pH POC ABG pCO2 POC ABG pO2 Sodium Potassium Chloride Carbon Dioxide BUN Creatinine Glucose POC Glucose 230 H 180 H 46 L Calcium Phosphorus Iron TIBC Lactate Dehydrogenase Total Creatine Kinase NT-Pro-B Natriuret Pep Total Protein Albumin Viriq-5-Epvtniicz Xpgls-6-Jxnatzbuw Beta Globulins PEP Interpretation Cholesterol LDL Cholesterol Direct Vitamin B12 Urine Creatinine Crossmatch 03/29/16 03/29/16 03/30/16 16:12 18:15 02:53 WBC RBC Hgb Hct MCV MCH MCHC RDW Plt Count Lymph % (Auto) [place] % (Auto) Lymph # [place] # Baso # Seg Neutrophils % Seg Neuts % (Manual) Lymphocytes % (Manual) Seg Neutrophils # Seg Neutrophils # Man Lymphocytes # (Manual) Monocytes # (Manual) Percent Retic PT INR APTT Heparin Anti-Xa Level POC ABG pH POC ABG pCO2 POC ABG pO2 Sodium Potassium Chloride Carbon Dioxide BUN Creatinine Glucose POC Glucose 52 L 118 H 130 H Calcium Phosphorus Iron TIBC Lactate Dehydrogenase Total Creatine Kinase NT-Pro-B Natriuret Pep Total Protein Albumin Zenmz-9-Fwbdxshqu Sczmt-6-Xvxvlanin Beta Globulins PEP Interpretation Cholesterol LDL Cholesterol Direct Vitamin B12 Urine Creatinine Crossmatch 03/30/16 03/30/16 03/30/16 04:00 04:00 05:29 WBC RBC Hgb Hct MCV 81 L MCH 26 L MCHC RDW Plt Count 116 L Lymph % (Auto) 10.8 L [place] % (Auto) 13.1 H Lymph # 1.0 L [place] # 1.3 H Baso # Seg Neutrophils % 74.2 H Seg Neuts % (Manual) Lymphocytes % (Manual) Seg Neutrophils # Seg Neutrophils # Man Lymphocytes # (Manual) Monocytes # (Manual) Percent Retic PT INR APTT Heparin Anti-Xa Level POC ABG pH 7.522 H POC ABG pCO2 22.7 L POC ABG pO2 137 H Sodium 147 H D Potassium Chloride 115.5 H Carbon Dioxide 20 L BUN Creatinine Glucose 116 H POC Glucose Calcium 7.6 L Phosphorus 2.3 L D Iron TIBC Lactate Dehydrogenase Total Creatine Kinase NT-Pro-B Natriuret Pep Total Protein Albumin Xjmxz-9-Wphzkfcdl Wtmmh-3-Odlekktey Beta Globulins PEP Interpretation Cholesterol LDL Cholesterol Direct Vitamin B12 Urine Creatinine Crossmatch 03/30/16 03/30/16 03/30/16 05:47 08:05 08:59 WBC RBC Hgb Hct MCV MCH MCHC RDW Plt Count Lymph % (Auto) [place] % (Auto) Lymph # [place] # Baso # Seg Neutrophils % Seg Neuts % (Manual) Lymphocytes % (Manual) Seg Neutrophils # Seg Neutrophils # Man Lymphocytes # (Manual) Monocytes # (Manual) Percent Retic PT INR APTT Heparin Anti-Xa Level POC ABG pH POC ABG pCO2 26.2 L POC ABG pO2 115 H Sodium Potassium Chloride Carbon Dioxide BUN Creatinine Glucose POC Glucose 138 H 171 H Calcium Phosphorus Iron TIBC Lactate Dehydrogenase Total Creatine Kinase NT-Pro-B Natriuret Pep Total Protein Albumin Zfaci-4-Dgytiglti Xhgkv-6-Cambpmsmx Beta Globulins PEP Interpretation Cholesterol LDL Cholesterol Direct Vitamin B12 Urine Creatinine Crossmatch 03/30/16 03/30/16 03/30/16 12:11 12:11 16:39 WBC RBC Hgb Hct MCV MCH MCHC RDW Plt Count Lymph % (Auto) [place] % (Auto) Lymph # [place] # Baso # Seg Neutrophils % Seg Neuts % (Manual) Lymphocytes % (Manual) Seg Neutrophils # Seg Neutrophils # Man Lymphocytes # (Manual) Monocytes # (Manual) Percent Retic PT INR APTT Heparin Anti-Xa Level POC ABG pH 7.476 H POC ABG pCO2 29.0 L POC ABG pO2 Sodium Potassium Chloride Carbon Dioxide BUN Creatinine Glucose POC Glucose 142 H 59 L Calcium Phosphorus Iron TIBC Lactate Dehydrogenase Total Creatine Kinase NT-Pro-B Natriuret Pep Total Protein Albumin Ebvko-2-Kkfjiqoft Lmsse-4-Iewuywhtj Beta Globulins PEP Interpretation Cholesterol LDL Cholesterol Direct Vitamin B12 Urine Creatinine Crossmatch 03/30/16 03/30/16 03/31/16 18:41 21:59 05:02 WBC RBC Hgb Hct MCV MCH MCHC RDW Plt Count Lymph % (Auto) [place] % (Auto) Lymph # [place] # Baso # Seg Neutrophils % Seg Neuts % (Manual) Lymphocytes % (Manual) Seg Neutrophils # Seg Neutrophils # Man Lymphocytes # (Manual) Monocytes # (Manual) Percent Retic PT INR APTT Heparin Anti-Xa Level POC ABG pH 7.519 H POC ABG pCO2 21.8 L POC ABG pO2 142 H Sodium Potassium Chloride Carbon Dioxide BUN Creatinine Glucose POC Glucose 145 H 154 H Calcium Phosphorus Iron TIBC Lactate Dehydrogenase Total Creatine Kinase NT-Pro-B Natriuret Pep Total Protein Albumin Ouggs-3-Xoiahylob Ufppf-7-Zgazjoeey Beta Globulins PEP Interpretation Cholesterol LDL Cholesterol Direct Vitamin B12 Urine Creatinine Crossmatch 03/31/16 03/31/16 03/31/16 05:15 05:15 05:15 WBC 13.4 H RBC 5.21 H Hgb Hct MCV 81 L MCH 26 L MCHC RDW Plt Count Lymph % (Auto) 9.5 L [place] % (Auto) 14.0 H Lymph # [place] # 1.9 H Baso # Seg Neutrophils % 75.0 H Seg Neuts % (Manual) Lymphocytes % (Manual) Seg Neutrophils # 10.1 H Seg Neutrophils # Man Lymphocytes # (Manual) Monocytes # (Manual) Percent Retic PT INR APTT Heparin Anti-Xa Level POC ABG pH POC ABG pCO2 POC ABG pO2 Sodium Potassium Chloride 108.5 H Carbon Dioxide 19 L BUN Creatinine Glucose 188 H POC Glucose Calcium Phosphorus Iron TIBC Lactate Dehydrogenase Total Creatine Kinase NT-Pro-B Natriuret Pep 1089 H Total Protein Albumin Kpofu-2-Tildbxthv Zjfcr-2-Feknevcvd Beta Globulins PEP Interpretation Cholesterol LDL Cholesterol Direct Vitamin B12 Urine Creatinine Crossmatch 03/31/16 03/31/16 03/31/16 07:23 11:12 15:20 WBC RBC Hgb Hct MCV MCH MCHC RDW Plt Count Lymph % (Auto) [place] % (Auto) Lymph # [place] # Baso # Seg Neutrophils % Seg Neuts % (Manual) Lymphocytes % (Manual) Seg Neutrophils # Seg Neutrophils # Man Lymphocytes # (Manual) Monocytes # (Manual) Percent Retic PT INR APTT Heparin Anti-Xa Level POC ABG pH POC ABG pCO2 POC ABG pO2 Sodium Potassium Chloride Carbon Dioxide BUN Creatinine Glucose POC Glucose 233 H 228 H 208 H Calcium Phosphorus Iron TIBC Lactate Dehydrogenase Total Creatine Kinase NT-Pro-B Natriuret Pep Total Protein Albumin Npahv-9-Hwwyovqxg Bfuqq-0-Yutjjbbgd Beta Globulins PEP Interpretation Cholesterol LDL Cholesterol Direct Vitamin B12 Urine Creatinine Crossmatch 03/31/16 04/01/16 04/01/16 21:27 04:41 05:35 WBC 12.1 H RBC Hgb Hct MCV 81 L MCH 26 L MCHC RDW Plt Count Lymph % (Auto) 8.5 L [place] % (Auto) 14.0 H Lymph # 1.0 L [place] # 1.7 H Baso # Seg Neutrophils % 76.2 H Seg Neuts % (Manual) Lymphocytes % (Manual) Seg Neutrophils # 9.2 H Seg Neutrophils # Man Lymphocytes # (Manual) Monocytes # (Manual) Percent Retic PT INR APTT Heparin Anti-Xa Level POC ABG pH 7.455 H POC ABG pCO2 31.0 L POC ABG pO2 Sodium Potassium Chloride Carbon Dioxide BUN Creatinine Glucose POC Glucose 162 H Calcium Phosphorus Iron TIBC Lactate Dehydrogenase Total Creatine Kinase NT-Pro-B Natriuret Pep Total Protein Albumin Jrlki-2-Jrfyruvuc Idwfh-1-Bxxhplwlm Beta Globulins PEP Interpretation Cholesterol LDL Cholesterol Direct Vitamin B12 Urine Creatinine Crossmatch 04/01/16 04/01/16 04/01/16 05:35 08:44 12:49 WBC RBC Hgb Hct MCV MCH MCHC RDW Plt Count Lymph % (Auto) [place] % (Auto) Lymph # [place] # Baso # Seg Neutrophils % Seg Neuts % (Manual) Lymphocytes % (Manual) Seg Neutrophils # Seg Neutrophils # Man Lymphocytes # (Manual) Monocytes # (Manual) Percent Retic PT INR APTT Heparin Anti-Xa Level POC ABG pH POC ABG pCO2 POC ABG pO2 Sodium Potassium Chloride Carbon Dioxide BUN Creatinine Glucose 256 H POC Glucose 257 H 279 H Calcium 8.0 L Phosphorus Iron TIBC Lactate Dehydrogenase Total Creatine Kinase NT-Pro-B Natriuret Pep 1205 H Total Protein Albumin Wwayj-0-Lapzelurj Plggl-0-Vcjcuuvbb Beta Globulins PEP Interpretation Cholesterol LDL Cholesterol Direct Vitamin B12 Urine Creatinine Crossmatch 04/01/16 04/02/16 04/02/16 18:12 00:42 04:17 WBC RBC Hgb Hct MCV MCH MCHC RDW Plt Count Lymph % (Auto) [place] % (Auto) Lymph # [place] # Baso # Seg Neutrophils % Seg Neuts % (Manual) Lymphocytes % (Manual) Seg Neutrophils # Seg Neutrophils # Man Lymphocytes # (Manual) Monocytes # (Manual) Percent Retic PT INR APTT Heparin Anti-Xa Level POC ABG pH 7.582 H POC ABG pCO2 26.8 L POC ABG pO2 Sodium Potassium Chloride Carbon Dioxide BUN Creatinine Glucose POC Glucose 168 H 282 H Calcium Phosphorus Iron TIBC Lactate Dehydrogenase Total Creatine Kinase NT-Pro-B Natriuret Pep Total Protein Albumin Hchyx-0-Wghyxljho Dwqeq-1-Fdyygsyiw Beta Globulins PEP Interpretation Cholesterol LDL Cholesterol Direct Vitamin B12 Urine Creatinine Crossmatch 04/02/16 04/02/16 04/02/16 05:00 05:00 06:27 WBC 12.4 H RBC Hgb Hct MCV 81 L MCH 26 L MCHC RDW Plt Count Lymph % (Auto) 6.4 L [place] % (Auto) 13.3 H Lymph # 0.8 L [place] # 1.7 H Baso # Seg Neutrophils % 79.4 H Seg Neuts % (Manual) Lymphocytes % (Manual) Seg Neutrophils # 9.9 H Seg Neutrophils # Man Lymphocytes # (Manual) Monocytes # (Manual) Percent Retic PT INR APTT Heparin Anti-Xa Level POC ABG pH POC ABG pCO2 POC ABG pO2 Sodium 146 H Potassium Chloride Carbon Dioxide BUN Creatinine Glucose 334 H POC Glucose 317 H Calcium 8.0 L Phosphorus Iron TIBC Lactate Dehydrogenase Total Creatine Kinase NT-Pro-B Natriuret Pep Total Protein Albumin Txcbs-2-Kksbrjjwk Qrhur-5-Fhrueyclu Beta Globulins PEP Interpretation Cholesterol LDL Cholesterol Direct Vitamin B12 Urine Creatinine Crossmatch 04/02/16 04/02/16 04/02/16 11:51 13:10 17:24 WBC RBC Hgb Hct MCV MCH MCHC RDW Plt Count Lymph % (Auto) [place] % (Auto) Lymph # [place] # Baso # Seg Neutrophils % Seg Neuts % (Manual) Lymphocytes % (Manual) Seg Neutrophils # Seg Neutrophils # Man Lymphocytes # (Manual) Monocytes # (Manual) Percent Retic PT INR APTT Heparin Anti-Xa Level POC ABG pH 7.518 H POC ABG pCO2 POC ABG pO2 Sodium Potassium Chloride Carbon Dioxide BUN Creatinine Glucose POC Glucose 278 H 195 H Calcium Phosphorus Iron TIBC Lactate Dehydrogenase Total Creatine Kinase NT-Pro-B Natriuret Pep Total Protein Albumin Wvfgj-3-Gihukbdev Iesij-6-Bpaqhavhe Beta Globulins PEP Interpretation Cholesterol LDL Cholesterol Direct Vitamin B12 Urine Creatinine Crossmatch 04/03/16 04/03/16 04/03/16 00:18 04:10 04:10 WBC 14.3 H RBC Hgb Hct MCV 81 L MCH 26 L MCHC RDW Plt Count Lymph % (Auto) 9.0 L [place] % (Auto) 10.7 H Lymph # [place] # 1.5 H Baso # 0.2 H Seg Neutrophils % 78.5 H Seg Neuts % (Manual) Lymphocytes % (Manual) Seg Neutrophils # 11.3 H Seg Neutrophils # Man Lymphocytes # (Manual) Monocytes # (Manual) Percent Retic PT INR APTT Heparin Anti-Xa Level POC ABG pH POC ABG pCO2 POC ABG pO2 Sodium 148 H Potassium Chloride 108.1 H Carbon Dioxide BUN 21 H Creatinine Glucose 227 H POC Glucose 144 H Calcium 8.2 L Phosphorus Iron TIBC Lactate Dehydrogenase Total Creatine Kinase NT-Pro-B Natriuret Pep Total Protein Albumin Zwpyt-1-Ultablwlk Szeap-0-Cevkmbeda Beta Globulins PEP Interpretation Cholesterol LDL Cholesterol Direct Vitamin B12 Urine Creatinine Crossmatch 04/03/16 04/03/16 04/04/16 11:14 17:10 04:00 WBC 14.5 H RBC Hgb Hct MCV 81 L MCH 26 L MCHC RDW Plt Count Lymph % (Auto) 7.2 L [place] % (Auto) 7.6 H Lymph # 1.0 L [place] # 1.1 H Baso # Seg Neutrophils % 84.5 H Seg Neuts % (Manual) Lymphocytes % (Manual) Seg Neutrophils # 12.3 H Seg Neutrophils # Man Lymphocytes # (Manual) Monocytes # (Manual) Percent Retic PT INR APTT Heparin Anti-Xa Level POC ABG pH POC ABG pCO2 POC ABG pO2 Sodium Potassium Chloride Carbon Dioxide BUN Creatinine Glucose POC Glucose 267 H 212 H Calcium Phosphorus Iron TIBC Lactate Dehydrogenase Total Creatine Kinase NT-Pro-B Natriuret Pep Total Protein Albumin Tqldn-3-Gckacggfa Ptuiz-4-Xfbatjfdh Beta Globulins PEP Interpretation Cholesterol LDL Cholesterol Direct Vitamin B12 Urine Creatinine Crossmatch 04/04/16 04/04/16 04/04/16 05:00 09:55 09:55 WBC RBC Hgb 11.5 L Hct MCV MCH MCHC RDW Plt Count Lymph % (Auto) [place] % (Auto) Lymph # [place] # Baso # Seg Neutrophils % Seg Neuts % (Manual) Lymphocytes % (Manual) Seg Neutrophils # Seg Neutrophils # Man Lymphocytes # (Manual) Monocytes # (Manual) Percent Retic PT INR APTT 42.1 H Heparin Anti-Xa Level POC ABG pH POC ABG pCO2 POC ABG pO2 Sodium 146 H Potassium Chloride Carbon Dioxide BUN 22 H Creatinine Glucose 128 H POC Glucose Calcium Phosphorus Iron TIBC Lactate Dehydrogenase Total Creatine Kinase NT-Pro-B Natriuret Pep Total Protein Albumin Nnnhs-8-Trxexdewb Xljji-5-Drucirenh Beta Globulins PEP Interpretation Cholesterol LDL Cholesterol Direct Vitamin B12 Urine Creatinine Crossmatch 04/04/16 04/04/16 04/04/16 11:45 17:49 17:55 WBC RBC Hgb Hct MCV MCH MCHC RDW Plt Count Lymph % (Auto) [place] % (Auto) Lymph # [place] # Baso # Seg Neutrophils % Seg Neuts % (Manual) Lymphocytes % (Manual) Seg Neutrophils # Seg Neutrophils # Man Lymphocytes # (Manual) Monocytes # (Manual) Percent Retic PT INR APTT Heparin Anti-Xa Level 1.19 H POC ABG pH POC ABG pCO2 POC ABG pO2 Sodium Potassium Chloride Carbon Dioxide BUN Creatinine Glucose POC Glucose 231 H 186 H Calcium Phosphorus Iron TIBC Lactate Dehydrogenase Total Creatine Kinase NT-Pro-B Natriuret Pep Total Protein Albumin Cfcmj-3-Exgfywjto Jytbq-9-Llufoelbq Beta Globulins PEP Interpretation Cholesterol LDL Cholesterol Direct Vitamin B12 Urine Creatinine Crossmatch 04/05/16 04/05/16 04/05/16 00:35 05:32 05:42 WBC RBC Hgb Hct MCV MCH MCHC RDW Plt Count Lymph % (Auto) [place] % (Auto) Lymph # [place] # Baso # Seg Neutrophils % Seg Neuts % (Manual) Lymphocytes % (Manual) Seg Neutrophils # Seg Neutrophils # Man Lymphocytes # (Manual) Monocytes # (Manual) Percent Retic PT INR APTT Heparin Anti-Xa Level POC ABG pH 7.491 H POC ABG pCO2 POC ABG pO2 Sodium Potassium Chloride Carbon Dioxide BUN Creatinine Glucose POC Glucose 192 H 242 H Calcium Phosphorus Iron TIBC Lactate Dehydrogenase Total Creatine Kinase NT-Pro-B Natriuret Pep Total Protein Albumin Dwaou-5-Nwpvmkqet Owocy-8-Mkijajfta Beta Globulins PEP Interpretation Cholesterol LDL Cholesterol Direct Vitamin B12 Urine Creatinine Crossmatch 04/05/16 04/05/16 04/05/16 06:20 06:20 12:19 WBC 13.9 H RBC Hgb 11.6 L Hct MCV 81 L MCH 26 L MCHC RDW Plt Count Lymph % (Auto) 9.6 L [place] % (Auto) 8.7 H Lymph # [place] # 1.2 H Baso # Seg Neutrophils % 80.9 H Seg Neuts % (Manual) Lymphocytes % (Manual) Seg Neutrophils # 11.3 H Seg Neutrophils # Man Lymphocytes # (Manual) Monocytes # (Manual) Percent Retic PT INR APTT Heparin Anti-Xa Level POC ABG pH POC ABG pCO2 POC ABG pO2 Sodium 148 H Potassium Chloride Carbon Dioxide BUN 23 H Creatinine Glucose 242 H POC Glucose 187 H Calcium Phosphorus Iron TIBC Lactate Dehydrogenase Total Creatine Kinase NT-Pro-B Natriuret Pep Total Protein Albumin Ekqmg-3-Fghpzfzlv Aslze-1-Jdcjemwbx Beta Globulins PEP Interpretation Cholesterol LDL Cholesterol Direct Vitamin B12 Urine Creatinine Crossmatch 04/05/16 04/05/16 04/06/16 17:10 23:45 05:23 WBC 13.0 H RBC Hgb Hct MCV 82 L MCH 26 L MCHC 31 L RDW Plt Count Lymph % (Auto) 6.7 L [place] % (Auto) 8.3 H Lymph # 0.9 L [place] # 1.1 H Baso # Seg Neutrophils % 84.6 H Seg Neuts % (Manual) Lymphocytes % (Manual) Seg Neutrophils # 11.0 H Seg Neutrophils # Man Lymphocytes # (Manual) Monocytes # (Manual) Percent Retic PT INR APTT Heparin Anti-Xa Level POC ABG pH POC ABG pCO2 POC ABG pO2 Sodium Potassium Chloride Carbon Dioxide BUN Creatinine Glucose POC Glucose 169 H 202 H Calcium Phosphorus Iron TIBC Lactate Dehydrogenase Total Creatine Kinase NT-Pro-B Natriuret Pep Total Protein Albumin Hgcxf-2-Hpmmphhbe Grtqo-7-Hffosxzbq Beta Globulins PEP Interpretation Cholesterol LDL Cholesterol Direct Vitamin B12 Urine Creatinine Crossmatch 04/06/16 04/06/16 04/06/16 05:23 05:23 06:11 WBC RBC Hgb Hct MCV MCH MCHC RDW Plt Count Lymph % (Auto) [place] % (Auto) Lymph # [place] # Baso # Seg Neutrophils % Seg Neuts % (Manual) Lymphocytes % (Manual) Seg Neutrophils # Seg Neutrophils # Man Lymphocytes # (Manual) Monocytes # (Manual) Percent Retic PT INR APTT Heparin Anti-Xa Level 0.21 L POC ABG pH POC ABG pCO2 POC ABG pO2 Sodium 153 H Potassium Chloride 111.3 H Carbon Dioxide BUN 22 H Creatinine Glucose 62 L POC Glucose 56 L Calcium Phosphorus Iron TIBC Lactate Dehydrogenase Total Creatine Kinase NT-Pro-B Natriuret Pep Total Protein Albumin Ovfne-7-Axmippizm [place]-4-Lgwbjppzz Beta Globulins PEP Interpretation Cholesterol LDL Cholesterol Direct Vitamin B12 Urine Creatinine Crossmatch 04/06/16 04/06/16 04/06/16 06:52 11:36 14:58 WBC RBC Hgb Hct MCV MCH MCHC RDW Plt Count Lymph % (Auto) [place] % (Auto) Lymph # [place] # Baso # Seg Neutrophils % Seg Neuts % (Manual) Lymphocytes % (Manual) Seg Neutrophils # Seg Neutrophils # Man Lymphocytes # (Manual) Monocytes # (Manual) Percent Retic PT INR APTT Heparin Anti-Xa Level POC ABG pH POC ABG pCO2 POC ABG pO2 Sodium Potassium Chloride Carbon Dioxide BUN Creatinine Glucose POC Glucose 206 H 139 H 147 H Calcium Phosphorus Iron TIBC Lactate Dehydrogenase Total Creatine Kinase NT-Pro-B Natriuret Pep Total Protein Albumin Npyzw-9-Fdijuizcv Rvvow-9-Oqlzjbtrq Beta Globulins PEP Interpretation Cholesterol LDL Cholesterol Direct Vitamin B12 Urine Creatinine Crossmatch 04/06/16 04/06/16 04/06/16 16:03 21:18 23:53 WBC RBC Hgb Hct MCV MCH MCHC RDW Plt Count Lymph % (Auto) [place] % (Auto) Lymph # [place] # Baso # Seg Neutrophils % Seg Neuts % (Manual) Lymphocytes % (Manual) Seg Neutrophils # Seg Neutrophils # Man Lymphocytes # (Manual) Monocytes # (Manual) Percent Retic PT INR APTT Heparin Anti-Xa Level POC ABG pH POC ABG pCO2 POC ABG pO2 Sodium Potassium Chloride Carbon Dioxide BUN Creatinine Glucose POC Glucose 154 H 293 H 301 H Calcium Phosphorus Iron TIBC Lactate Dehydrogenase Total Creatine Kinase NT-Pro-B Natriuret Pep Total Protein Albumin Brfwc-6-Ocmcthgiy Lnoom-3-Esvismqwa Beta Globulins PEP Interpretation Cholesterol LDL Cholesterol Direct Vitamin B12 Urine Creatinine Crossmatch 04/07/16 04/07/16 04/07/16 02:30 05:11 05:11 WBC 12.5 H RBC Hgb 11.5 L Hct MCV 82 L MCH 26 L MCHC 31 L RDW Plt Count Lymph % (Auto) [place] % (Auto) Lymph # [place] # Baso # Seg Neutrophils % Seg Neuts % (Manual) Lymphocytes % (Manual) Seg Neutrophils # Seg Neutrophils # Man Lymphocytes # (Manual) Monocytes # (Manual) Percent Retic PT INR APTT Heparin Anti-Xa Level 0.11 L POC ABG pH POC ABG pCO2 POC ABG pO2 Sodium 150 H Potassium Chloride 109.5 H Carbon Dioxide BUN 28 H Creatinine Glucose 264 H POC Glucose Calcium Phosphorus Iron TIBC Lactate Dehydrogenase Total Creatine Kinase NT-Pro-B Natriuret Pep Total Protein Albumin Dqspg-2-Zvjwclrnp Ambco-9-Ojwwegfut Beta Globulins PEP Interpretation Cholesterol LDL Cholesterol Direct Vitamin B12 Urine Creatinine Crossmatch 04/07/16 04/07/16 04/07/16 06:46 10:18 11:50 WBC RBC Hgb Hct MCV MCH MCHC RDW Plt Count Lymph % (Auto) [place] % (Auto) Lymph # [place] # Baso # Seg Neutrophils % Seg Neuts % (Manual) Lymphocytes % (Manual) Seg Neutrophils # Seg Neutrophils # Man Lymphocytes # (Manual) Monocytes # (Manual) Percent Retic PT 15.1 H INR 1.20 H APTT Heparin Anti-Xa Level POC ABG pH POC ABG pCO2 POC ABG pO2 Sodium Potassium Chloride Carbon Dioxide BUN Creatinine Glucose POC Glucose 259 H 288 H Calcium Phosphorus Iron TIBC Lactate Dehydrogenase Total Creatine Kinase NT-Pro-B Natriuret Pep Total Protein Albumin Gdcvk-3-Pkjuudzrc Adfzs-7-Pmlthuvip Beta Globulins PEP Interpretation Cholesterol LDL Cholesterol Direct Vitamin B12 Urine Creatinine Crossmatch 04/07/16 04/08/16 04/08/16 17:58 01:25 06:49 WBC RBC Hgb Hct MCV MCH MCHC RDW Plt Count Lymph % (Auto) [place] % (Auto) Lymph # [place] # Baso # Seg Neutrophils % Seg Neuts % (Manual) Lymphocytes % (Manual) Seg Neutrophils # Seg Neutrophils # Man Lymphocytes # (Manual) Monocytes # (Manual) Percent Retic PT INR APTT Heparin Anti-Xa Level POC ABG pH POC ABG pCO2 POC ABG pO2 Sodium 156 H Potassium Chloride 114.7 H Carbon Dioxide BUN 33 H Creatinine Glucose 169 H POC Glucose 330 H 146 H Calcium Phosphorus Iron TIBC Lactate Dehydrogenase Total Creatine Kinase NT-Pro-B Natriuret Pep Total Protein Albumin Zxkyj-8-Bsnhbrlbk Ymzwq-2-Rhyotkdqf Beta Globulins PEP Interpretation Cholesterol LDL Cholesterol Direct Vitamin B12 Urine Creatinine Crossmatch 04/08/16 04/08/16 04/08/16 07:34 10:28 10:28 WBC RBC Hgb Hct MCV MCH MCHC RDW Plt Count Lymph % (Auto) [place] % (Auto) Lymph # [place] # Baso # Seg Neutrophils % Seg Neuts % (Manual) Lymphocytes % (Manual) Seg Neutrophils # Seg Neutrophils # Man Lymphocytes # (Manual) Monocytes # (Manual) Percent Retic PT 15.5 H INR 1.24 H APTT Heparin Anti-Xa Level 0.24 L POC ABG pH POC ABG pCO2 POC ABG pO2 Sodium Potassium Chloride Carbon Dioxide BUN Creatinine Glucose POC Glucose 232 H Calcium Phosphorus Iron TIBC Lactate Dehydrogenase Total Creatine Kinase NT-Pro-B Natriuret Pep Total Protein Albumin Dwevj-6-Uijsbpszs Epgsu-0-Ntrtdfrxp Beta Globulins PEP Interpretation Cholesterol LDL Cholesterol Direct Vitamin B12 Urine Creatinine Crossmatch 04/08/16 04/08/16 04/09/16 11:36 15:38 00:01 WBC RBC Hgb Hct MCV MCH MCHC RDW Plt Count Lymph % (Auto) [place] % (Auto) Lymph # [place] # Baso # Seg Neutrophils % Seg Neuts % (Manual) Lymphocytes % (Manual) Seg Neutrophils # Seg Neutrophils # Man Lymphocytes # (Manual) Monocytes # (Manual) Percent Retic PT INR APTT Heparin Anti-Xa Level POC ABG pH POC ABG pCO2 POC ABG pO2 Sodium Potassium Chloride Carbon Dioxide BUN Creatinine Glucose POC Glucose 193 H 163 H 180 H Calcium Phosphorus Iron TIBC Lactate Dehydrogenase Total Creatine Kinase NT-Pro-B Natriuret Pep Total Protein Albumin Lojfu-1-Bescktszy Abkys-9-Oueaufxkl Beta Globulins PEP Interpretation Cholesterol LDL Cholesterol Direct Vitamin B12 Urine Creatinine Crossmatch 04/09/16 04/09/16 04/09/16 06:17 06:42 06:42 WBC RBC Hgb Hct MCV MCH MCHC RDW Plt Count Lymph % (Auto) [place] % (Auto) Lymph # [place] # Baso # Seg Neutrophils % Seg Neuts % (Manual) Lymphocytes % (Manual) Seg Neutrophils # Seg Neutrophils # Man Lymphocytes # (Manual) Monocytes # (Manual) Percent Retic PT 17.4 H INR 1.43 H APTT Heparin Anti-Xa Level POC ABG pH POC ABG pCO2 POC ABG pO2 Sodium 153 H Potassium Chloride 113.2 H Carbon Dioxide BUN 29 H Creatinine Glucose 301 H POC Glucose 249 H Calcium 8.3 L Phosphorus Iron TIBC Lactate Dehydrogenase Total Creatine Kinase NT-Pro-B Natriuret Pep Total Protein Albumin Bqxtl-4-Lrnantmqn Jacrh-4-Boxantcvq Beta Globulins PEP Interpretation Cholesterol LDL Cholesterol Direct Vitamin B12 Urine Creatinine Crossmatch 04/09/16 04/09/16 04/09/16 07:37 11:26 15:45 WBC RBC Hgb Hct MCV MCH MCHC RDW Plt Count Lymph % (Auto) [place] % (Auto) Lymph # [place] # Baso # Seg Neutrophils % Seg Neuts % (Manual) Lymphocytes % (Manual) Seg Neutrophils # Seg Neutrophils # Man Lymphocytes # (Manual) Monocytes # (Manual) Percent Retic PT INR APTT Heparin Anti-Xa Level POC ABG pH POC ABG pCO2 POC ABG pO2 Sodium Potassium Chloride Carbon Dioxide BUN Creatinine Glucose POC Glucose 283 H 306 H 354 H Calcium Phosphorus Iron TIBC Lactate Dehydrogenase Total Creatine Kinase NT-Pro-B Natriuret Pep Total Protein Albumin Knkmz-5-Biwfyjvqi Btefy-0-Godtxygdv Beta Globulins PEP Interpretation Cholesterol LDL Cholesterol Direct Vitamin B12 Urine Creatinine Crossmatch 04/10/16 04/10/16 04/10/16 00:53 07:15 07:34 WBC RBC Hgb 11.3 L Hct MCV MCH MCHC RDW Plt Count Lymph % (Auto) [place] % (Auto) Lymph # [place] # Baso # Seg Neutrophils % Seg Neuts % (Manual) Lymphocytes % (Manual) Seg Neutrophils # Seg Neutrophils # Man Lymphocytes # (Manual) Monocytes # (Manual) Percent Retic PT INR APTT Heparin Anti-Xa Level POC ABG pH POC ABG pCO2 POC ABG pO2 Sodium Potassium Chloride Carbon Dioxide BUN Creatinine Glucose POC Glucose 323 H 311 H Calcium Phosphorus Iron TIBC Lactate Dehydrogenase Total Creatine Kinase NT-Pro-B Natriuret Pep Total Protein Albumin Lledr-9-Ipftvalum Jytky-1-Vnqxlvugm Beta Globulins PEP Interpretation Cholesterol LDL Cholesterol Direct Vitamin B12 Urine Creatinine Crossmatch 04/10/16 04/10/16 04/10/16 07:34 07:34 11:25 WBC RBC Hgb Hct MCV MCH MCHC RDW Plt Count Lymph % (Auto) [place] % (Auto) Lymph # [place] # Baso # Seg Neutrophils % Seg Neuts % (Manual) Lymphocytes % (Manual) Seg Neutrophils # Seg Neutrophils # Man Lymphocytes # (Manual) Monocytes # (Manual) Percent Retic PT 17.3 H INR 1.42 H APTT Heparin Anti-Xa Level POC ABG pH POC ABG pCO2 POC ABG pO2 Sodium 158 H Potassium Chloride 118.6 H Carbon Dioxide BUN 30 H Creatinine Glucose 330 H POC Glucose 335 H Calcium 8.3 L Phosphorus Iron TIBC Lactate Dehydrogenase Total Creatine Kinase NT-Pro-B Natriuret Pep Total Protein Albumin Ofjyt-9-Uazqtczjg Bqsxu-1-Rmuljpztn Beta Globulins PEP Interpretation Cholesterol LDL Cholesterol Direct Vitamin B12 Urine Creatinine Crossmatch 04/10/16 04/11/16 04/11/16 16:21 00:29 07:47 WBC RBC Hgb Hct MCV MCH MCHC RDW Plt Count Lymph % (Auto) [place] % (Auto) Lymph # [place] # Baso # Seg Neutrophils % Seg Neuts % (Manual) Lymphocytes % (Manual) Seg Neutrophils # Seg Neutrophils # Man Lymphocytes # (Manual) Monocytes # (Manual) Percent Retic PT 18.4 H INR 1.53 H APTT Heparin Anti-Xa Level POC ABG pH POC ABG pCO2 POC ABG pO2 Sodium Potassium Chloride Carbon Dioxide BUN Creatinine Glucose POC Glucose 230 H 162 H Calcium Phosphorus Iron TIBC Lactate Dehydrogenase Total Creatine Kinase NT-Pro-B Natriuret Pep Total Protein Albumin Qamdk-6-Mdnjmaccl Trakp-1-Nrtaccjdk Beta Globulins PEP Interpretation Cholesterol LDL Cholesterol Direct Vitamin B12 Urine Creatinine Crossmatch 04/11/16 04/11/16 04/12/16 07:47 11:22 04:54 WBC RBC Hgb 11.0 L Hct 35.0 L MCV MCH MCHC RDW Plt Count Lymph % (Auto) [place] % (Auto) Lymph # [place] # Baso # Seg Neutrophils % Seg Neuts % (Manual) Lymphocytes % (Manual) Seg Neutrophils # Seg Neutrophils # Man Lymphocytes # (Manual) Monocytes # (Manual) Percent Retic PT INR APTT Heparin Anti-Xa Level POC ABG pH POC ABG pCO2 POC ABG pO2 Sodium 155 H Potassium Chloride 114.5 H Carbon Dioxide BUN 23 H Creatinine Glucose 157 H POC Glucose 229 H Calcium Phosphorus Iron TIBC Lactate Dehydrogenase Total Creatine Kinase NT-Pro-B Natriuret Pep Total Protein Albumin Vfell-1-Hsnpmhrcl Klsnp-4-Yfdmxrvhu Beta Globulins PEP Interpretation Cholesterol LDL Cholesterol Direct Vitamin B12 Urine Creatinine Crossmatch 04/12/16 04/12/16 04/12/16 04:54 04:54 05:57 WBC RBC Hgb Hct MCV MCH MCHC RDW Plt Count Lymph % (Auto) [place] % (Auto) Lymph # [place] # Baso # Seg Neutrophils % Seg Neuts % (Manual) Lymphocytes % (Manual) Seg Neutrophils # Seg Neutrophils # Man Lymphocytes # (Manual) Monocytes # (Manual) Percent Retic PT 22.5 H INR 1.98 H APTT Heparin Anti-Xa Level 0.19 L POC ABG pH POC ABG pCO2 POC ABG pO2 Sodium 156 H Potassium Chloride 115.4 H Carbon Dioxide BUN 23 H Creatinine Glucose 143 H POC Glucose 194 H Calcium Phosphorus Iron TIBC Lactate Dehydrogenase Total Creatine Kinase NT-Pro-B Natriuret Pep Total Protein Albumin Xujjx-8-Zueyxbssy Catpa-2-Frmelnvdj Beta Globulins PEP Interpretation Cholesterol LDL Cholesterol Direct Vitamin B12 Urine Creatinine Crossmatch 04/12/16 04/12/16 04/12/16 12:34 19:01 23:30 WBC RBC Hgb Hct MCV MCH MCHC RDW Plt Count Lymph % (Auto) [place] % (Auto) Lymph # [place] # Baso # Seg Neutrophils % Seg Neuts % (Manual) Lymphocytes % (Manual) Seg Neutrophils # Seg Neutrophils # Man Lymphocytes # (Manual) Monocytes # (Manual) Percent Retic PT INR APTT Heparin Anti-Xa Level POC ABG pH POC ABG pCO2 POC ABG pO2 Sodium Potassium Chloride Carbon Dioxide BUN Creatinine Glucose POC Glucose 291 H 235 H 154 H Calcium Phosphorus Iron TIBC Lactate Dehydrogenase Total Creatine Kinase NT-Pro-B Natriuret Pep Total Protein Albumin Lnfqy-5-Shdpdmggk Henmb-6-Qtzsnteex Beta Globulins PEP Interpretation Cholesterol LDL Cholesterol Direct Vitamin B12 Urine Creatinine Crossmatch 04/13/16 04/13/16 04/13/16 05:16 05:16 05:28 WBC RBC Hgb Hct MCV MCH MCHC RDW Plt Count Lymph % (Auto) [place] % (Auto) Lymph # [place] # Baso # Seg Neutrophils % Seg Neuts % (Manual) Lymphocytes % (Manual) Seg Neutrophils # Seg Neutrophils # Man Lymphocytes # (Manual) Monocytes # (Manual) Percent Retic PT 27.0 H INR 2.49 H APTT Heparin Anti-Xa Level 0.20 L POC ABG pH POC ABG pCO2 POC ABG pO2 Sodium 150 H Potassium Chloride 110.5 H Carbon Dioxide BUN 21 H Creatinine Glucose 159 H POC Glucose 177 H Calcium Phosphorus Iron TIBC Lactate Dehydrogenase Total Creatine Kinase NT-Pro-B Natriuret Pep Total Protein Albumin Uomli-1-Rlolulmwk Luyhp-1-Ojmwzcsad Beta Globulins PEP Interpretation Cholesterol LDL Cholesterol Direct Vitamin B12 Urine Creatinine Crossmatch 04/13/16 04/13/16 04/14/16 11:30 17:54 00:44 WBC RBC Hgb Hct MCV MCH MCHC RDW Plt Count Lymph % (Auto) [place] % (Auto) Lymph # [place] # Baso # Seg Neutrophils % Seg Neuts % (Manual) Lymphocytes % (Manual) Seg Neutrophils # Seg Neutrophils # Man Lymphocytes # (Manual) Monocytes # (Manual) Percent Retic PT INR APTT Heparin Anti-Xa Level POC ABG pH POC ABG pCO2 POC ABG pO2 Sodium Potassium Chloride Carbon Dioxide BUN Creatinine Glucose POC Glucose 181 H 251 H 237 H Calcium Phosphorus Iron TIBC Lactate Dehydrogenase Total Creatine Kinase NT-Pro-B Natriuret Pep Total Protein Albumin Ogxcp-7-Pmgboigaq Aiurf-9-Nlclowtsp Beta Globulins PEP Interpretation Cholesterol LDL Cholesterol Direct Vitamin B12 Urine Creatinine Crossmatch 04/14/16 04/14/16 04/14/16 05:00 05:42 05:42 WBC RBC Hgb Hct MCV MCH MCHC RDW Plt Count Lymph % (Auto) [place] % (Auto) Lymph # [place] # Baso # Seg Neutrophils % Seg Neuts % (Manual) Lymphocytes % (Manual) Seg Neutrophils # Seg Neutrophils # Man Lymphocytes # (Manual) Monocytes # (Manual) Percent Retic PT 30.3 H INR 2.88 H APTT Heparin Anti-Xa Level 0.27 L POC ABG pH POC ABG pCO2 POC ABG pO2 Sodium Potassium 3.5 L Chloride Carbon Dioxide BUN Creatinine Glucose 160 H POC Glucose Calcium 8.2 L Phosphorus Iron TIBC Lactate Dehydrogenase Total Creatine Kinase NT-Pro-B Natriuret Pep Total Protein Albumin Sbnzm-5-Cdzhrnycg Rigtq-2-Oaxenbptw Beta Globulins PEP Interpretation Cholesterol LDL Cholesterol Direct Vitamin B12 Urine Creatinine Crossmatch 04/14/16 04/14/16 04/14/16 06:02 06:16 09:18 WBC 12.3 H RBC Hgb 11.4 L Hct MCV 82 L MCH 26 L MCHC RDW Plt Count Lymph % (Auto) [place] % (Auto) Lymph # [place] # Baso # Seg Neutrophils % Seg Neuts % (Manual) Lymphocytes % (Manual) Seg Neutrophils # Seg Neutrophils # Man Lymphocytes # (Manual) Monocytes # (Manual) Percent Retic PT INR APTT Heparin Anti-Xa Level POC ABG pH POC ABG pCO2 POC ABG pO2 Sodium Potassium Chloride Carbon Dioxide BUN Creatinine Glucose POC Glucose 156 H 164 H Calcium Phosphorus Iron TIBC Lactate Dehydrogenase Total Creatine Kinase NT-Pro-B Natriuret Pep Total Protein Albumin Kszyl-2-Jjctmipoa Ylsrk-5-Orisdqbsx Beta Globulins PEP Interpretation Cholesterol LDL Cholesterol Direct Vitamin B12 Urine Creatinine Crossmatch 04/14/16 04/15/16 04/15/16 13:58 01:07 06:04 WBC RBC Hgb Hct MCV MCH MCHC RDW Plt Count Lymph % (Auto) [place] % (Auto) Lymph # [place] # Baso # Seg Neutrophils % Seg Neuts % (Manual) Lymphocytes % (Manual) Seg Neutrophils # Seg Neutrophils # Man Lymphocytes # (Manual) Monocytes # (Manual) Percent Retic PT 24.9 H INR 2.25 H APTT Heparin Anti-Xa Level POC ABG pH POC ABG pCO2 POC ABG pO2 Sodium Potassium Chloride Carbon Dioxide BUN Creatinine Glucose POC Glucose 109 H 154 H Calcium Phosphorus Iron TIBC Lactate Dehydrogenase Total Creatine Kinase NT-Pro-B Natriuret Pep Total Protein Albumin Nijwu-9-Epfnujjaa Lrpyd-3-Wswgngosh Beta Globulins PEP Interpretation Cholesterol LDL Cholesterol Direct Vitamin B12 Urine Creatinine Crossmatch 04/15/16 04/15/16 04/16/16 06:08 12:41 00:38 WBC RBC Hgb Hct MCV MCH MCHC RDW Plt Count Lymph % (Auto) [place] % (Auto) Lymph # [place] # Baso # Seg Neutrophils % Seg Neuts % (Manual) Lymphocytes % (Manual) Seg Neutrophils # Seg Neutrophils # Man Lymphocytes # (Manual) Monocytes # (Manual) Percent Retic PT INR APTT Heparin Anti-Xa Level POC ABG pH POC ABG pCO2 POC ABG pO2 Sodium Potassium Chloride Carbon Dioxide BUN Creatinine Glucose POC Glucose 165 H 223 H 216 H Calcium Phosphorus Iron TIBC Lactate Dehydrogenase Total Creatine Kinase NT-Pro-B Natriuret Pep Total Protein Albumin Pihlx-4-Gpzstxmmj Jtnaw-1-Dnfpqjjyo Beta Globulins PEP Interpretation Cholesterol LDL Cholesterol Direct Vitamin B12 Urine Creatinine Crossmatch 04/16/16 04/16/16 04/16/16 05:45 07:09 14:00 WBC RBC Hgb Hct MCV MCH MCHC RDW Plt Count Lymph % (Auto) [place] % (Auto) Lymph # [place] # Baso # Seg Neutrophils % Seg Neuts % (Manual) Lymphocytes % (Manual) Seg Neutrophils # Seg Neutrophils # Man Lymphocytes # (Manual) Monocytes # (Manual) Percent Retic PT 19.4 H INR 1.64 H APTT Heparin Anti-Xa Level 0.10 L POC ABG pH POC ABG pCO2 POC ABG pO2 Sodium Potassium Chloride Carbon Dioxide BUN Creatinine Glucose POC Glucose 207 H 69 L Calcium Phosphorus Iron TIBC Lactate Dehydrogenase Total Creatine Kinase NT-Pro-B Natriuret Pep Total Protein Albumin Sdsmk-9-Pgrsiajsq Whpwf-2-Yfhqzkaqb Beta Globulins PEP Interpretation Cholesterol LDL Cholesterol Direct Vitamin B12 Urine Creatinine Crossmatch 04/16/16 04/16/16 04/16/16 17:40 17:52 19:38 WBC RBC Hgb Hct MCV MCH MCHC RDW Plt Count Lymph % (Auto) [place] % (Auto) Lymph # [place] # Baso # Seg Neutrophils % Seg Neuts % (Manual) Lymphocytes % (Manual) Seg Neutrophils # Seg Neutrophils # Man Lymphocytes # (Manual) Monocytes # (Manual) Percent Retic PT INR APTT Heparin Anti-Xa Level 0.26 L POC ABG pH 7.543 H 7.488 H POC ABG pCO2 26.3 L 30.3 L POC ABG pO2 55 L 203 H Sodium Potassium Chloride Carbon Dioxide BUN Creatinine Glucose POC Glucose Calcium Phosphorus Iron TIBC Lactate Dehydrogenase Total Creatine Kinase NT-Pro-B Natriuret Pep Total Protein Albumin [id number]-[id number] Nsgwy-2-Tnzqllkre Beta Globulins PEP Interpretation Cholesterol LDL Cholesterol Direct Vitamin B12 Urine Creatinine Crossmatch 04/17/16 04/17/16 04/17/16 00:04 05:10 05:36 WBC RBC Hgb Hct MCV MCH MCHC RDW Plt Count Lymph % (Auto) [place] % (Auto) Lymph # [place] # Baso # Seg Neutrophils % Seg Neuts % (Manual) Lymphocytes % (Manual) Seg Neutrophils # Seg Neutrophils # Man Lymphocytes # (Manual) Monocytes # (Manual) Percent Retic PT INR APTT Heparin Anti-Xa Level POC ABG pH POC ABG pCO2 32.7 L POC ABG pO2 68 L Sodium Potassium Chloride Carbon Dioxide BUN Creatinine Glucose POC Glucose 113 H 161 H Calcium Phosphorus Iron TIBC Lactate Dehydrogenase Total Creatine Kinase NT-Pro-B Natriuret Pep Total Protein Albumin Efyow-3-Tchussxdb Yeakr-7-Htwiilmdr Beta Globulins PEP Interpretation Cholesterol LDL Cholesterol Direct Vitamin B12 Urine Creatinine Crossmatch 04/17/16 04/17/16 04/17/16 05:41 08:37 11:46 WBC RBC Hgb Hct MCV MCH MCHC RDW Plt Count Lymph % (Auto) [place] % (Auto) Lymph # [place] # Baso # Seg Neutrophils % Seg Neuts % (Manual) Lymphocytes % (Manual) Seg Neutrophils # Seg Neutrophils # Man Lymphocytes # (Manual) Monocytes # (Manual) Percent Retic PT 17.4 H INR 1.43 H APTT Heparin Anti-Xa Level POC ABG pH POC ABG pCO2 POC ABG pO2 Sodium Potassium Chloride Carbon Dioxide BUN Creatinine Glucose POC Glucose 154 H 138 H Calcium Phosphorus Iron TIBC Lactate Dehydrogenase Total Creatine Kinase NT-Pro-B Natriuret Pep Total Protein Albumin Ffaea-1-Tueahmxnm Mwbzm-8-Cawzjjerk Beta Globulins PEP Interpretation Cholesterol LDL Cholesterol Direct Vitamin B12 Urine Creatinine Crossmatch 04/17/16 04/17/16 04/17/16 12:17 12:17 21:20 WBC 16.5 H RBC 3.31 L Hgb 8.8 L Hct 26.9 L MCV 81 L MCH 27 L MCHC RDW 15.5 H Plt Count Lymph % (Auto) [place] % (Auto) Lymph # [place] # Baso # Seg Neutrophils % Seg Neuts % (Manual) Lymphocytes % (Manual) 3.0 L Seg Neutrophils # Seg Neutrophils # Man 10.1 H Lymphocytes # (Manual) 0.5 L Monocytes # (Manual) Percent Retic PT INR APTT Heparin Anti-Xa Level 0.14 L POC ABG pH POC ABG pCO2 POC ABG pO2 Sodium Potassium Chloride Carbon Dioxide 21 L BUN 38 H Creatinine 1.8 H D Glucose 131 H POC Glucose Calcium 7.6 L Phosphorus Iron TIBC Lactate Dehydrogenase Total Creatine Kinase NT-Pro-B Natriuret Pep Total Protein Albumin [place]-7-Qvzuofcda Ldmbp-5-Hljklfpjr Beta Globulins PEP Interpretation Cholesterol LDL Cholesterol Direct Vitamin B12 Urine Creatinine Crossmatch 04/17/16 04/17/16 04/18/16 23:38 23:41 00:21 WBC RBC Hgb Hct MCV MCH MCHC RDW Plt Count Lymph % (Auto) [place] % (Auto) Lymph # [place] # Baso # Seg Neutrophils % Seg Neuts % (Manual) Lymphocytes % (Manual) Seg Neutrophils # Seg Neutrophils # Man Lymphocytes # (Manual) Monocytes # (Manual) Percent Retic PT INR APTT Heparin Anti-Xa Level POC ABG pH POC ABG pCO2 POC ABG pO2 Sodium Potassium Chloride Carbon Dioxide BUN Creatinine Glucose POC Glucose < 40 L < 40 L 223 H Calcium Phosphorus Iron TIBC Lactate Dehydrogenase Total Creatine Kinase NT-Pro-B Natriuret Pep Total Protein Albumin Ibgtz-6-Gufckxhae Zjwho-4-Rfxahnanx Beta Globulins PEP Interpretation Cholesterol LDL Cholesterol Direct Vitamin B12 Urine Creatinine Crossmatch 04/18/16 04/18/16 04/18/16 05:01 05:20 05:20 WBC 17.6 H RBC 3.44 L Hgb 9.1 L Hct 27.8 L MCV 81 L MCH 26 L MCHC RDW 15.5 H Plt Count Lymph % (Auto) 2.7 L [place] % (Auto) 8.3 H Lymph # 0.5 L [place] # 1.5 H Baso # Seg Neutrophils % 88.4 H Seg Neuts % (Manual) Lymphocytes % (Manual) Seg Neutrophils # 15.6 H Seg Neutrophils # Man Lymphocytes # (Manual) Monocytes # (Manual) Percent Retic PT 17.4 H INR 1.43 H APTT Heparin Anti-Xa Level POC ABG pH 7.528 H POC ABG pCO2 27.9 L POC ABG pO2 Sodium Potassium Chloride Carbon Dioxide BUN Creatinine Glucose POC Glucose Calcium Phosphorus Iron TIBC Lactate Dehydrogenase Total Creatine Kinase NT-Pro-B Natriuret Pep Total Protein Albumin Bdhvk-7-Mnqqrwngj Kdhzh-3-Upkckidne Beta Globulins PEP Interpretation Cholesterol LDL Cholesterol Direct Vitamin B12 Urine Creatinine Crossmatch 04/18/16 04/18/16 04/18/16 05:20 05:31 06:50 WBC RBC Hgb Hct MCV MCH MCHC RDW Plt Count Lymph % (Auto) [place] % (Auto) Lymph # [place] # Baso # Seg Neutrophils % Seg Neuts % (Manual) Lymphocytes % (Manual) Seg Neutrophils # Seg Neutrophils # Man Lymphocytes # (Manual) Monocytes # (Manual) Percent Retic PT INR APTT Heparin Anti-Xa Level POC ABG pH POC ABG pCO2 POC ABG pO2 Sodium Potassium 3.4 L Chloride Carbon Dioxide 21 L BUN 22 H Creatinine Glucose POC Glucose 61 L 124 H Calcium 8.0 L Phosphorus Iron TIBC Lactate Dehydrogenase Total Creatine Kinase NT-Pro-B Natriuret Pep Total Protein Albumin Hckjk-6-Vbqhwnvnb Uxucg-6-Hbaxcwpdh Beta Globulins PEP Interpretation Cholesterol LDL Cholesterol Direct Vitamin B12 Urine Creatinine Crossmatch 04/18/16 04/18/16 04/19/16 17:42 22:40 00:31 WBC RBC Hgb Hct MCV MCH MCHC RDW Plt Count Lymph % (Auto) [place] % (Auto) Lymph # [place] # Baso # Seg Neutrophils % Seg Neuts % (Manual) Lymphocytes % (Manual) Seg Neutrophils # Seg Neutrophils # Man Lymphocytes # (Manual) Monocytes # (Manual) Percent Retic PT INR APTT Heparin Anti-Xa Level < 0.10 L POC ABG pH POC ABG pCO2 POC ABG pO2 Sodium Potassium Chloride Carbon Dioxide BUN Creatinine Glucose POC Glucose 159 H 134 H Calcium Phosphorus Iron TIBC Lactate Dehydrogenase Total Creatine Kinase NT-Pro-B Natriuret Pep Total Protein Albumin Pizdp-1-Wwhudhzjp Hqwxm-2-Jijvudiqz Beta Globulins PEP Interpretation Cholesterol LDL Cholesterol Direct Vitamin B12 Urine Creatinine Crossmatch 04/19/16 04/19/16 04/19/16 04:18 04:18 04:25 WBC 19.0 H RBC 3.58 L Hgb 9.3 L Hct 28.8 L MCV 80 L MCH 26 L MCHC RDW 15.5 H Plt Count Lymph % (Auto) 2.8 L [place] % (Auto) 7.4 H Lymph # 0.5 L [place] # 1.4 H Baso # Seg Neutrophils % 89.4 H Seg Neuts % (Manual) Lymphocytes % (Manual) Seg Neutrophils # 17.0 H Seg Neutrophils # Man Lymphocytes # (Manual) Monocytes # (Manual) Percent Retic PT INR APTT Heparin Anti-Xa Level POC ABG pH 7.527 H POC ABG pCO2 27.1 L POC ABG pO2 Sodium Potassium Chloride Carbon Dioxide BUN 22 H Creatinine Glucose 215 H POC Glucose Calcium 8.0 L Phosphorus Iron TIBC Lactate Dehydrogenase Total Creatine Kinase NT-Pro-B Natriuret Pep Total Protein Albumin Almzu-4-Lyiwcgqaa Ntaon-3-Ixmhsuoet Beta Globulins PEP Interpretation Cholesterol LDL Cholesterol Direct Vitamin B12 Urine Creatinine Crossmatch 04/19/16 04/19/16 04/19/16 05:45 08:10 14:08 WBC RBC Hgb Hct MCV MCH MCHC RDW Plt Count Lymph % (Auto) [place] % (Auto) Lymph # [place] # Baso # Seg Neutrophils % Seg Neuts % (Manual) Lymphocytes % (Manual) Seg Neutrophils # Seg Neutrophils # Man Lymphocytes # (Manual) Monocytes # (Manual) Percent Retic PT 22.1 H INR 1.93 H APTT Heparin Anti-Xa Level 0.17 L POC ABG pH POC ABG pCO2 POC ABG pO2 Sodium Potassium Chloride Carbon Dioxide BUN Creatinine Glucose POC Glucose 196 H 318 H Calcium Phosphorus Iron TIBC Lactate Dehydrogenase Total Creatine Kinase NT-Pro-B Natriuret Pep Total Protein Albumin Osnkj-7-Dfxbbsgeq Bnjhp-9-Azdxebsdn Beta Globulins PEP Interpretation Cholesterol LDL Cholesterol Direct Vitamin B12 Urine Creatinine Crossmatch 04/19/16 04/20/16 04/20/16 17:27 03:55 03:55 WBC 18.5 H RBC 3.19 L Hgb 8.4 L Hct 25.7 L MCV 80 L MCH 26 L MCHC RDW 15.9 H Plt Count Lymph % (Auto) 4.3 L [place] % (Auto) 10.1 H Lymph # 0.8 L [place] # 1.9 H Baso # Seg Neutrophils % 85.2 H Seg Neuts % (Manual) Lymphocytes % (Manual) Seg Neutrophils # 15.8 H Seg Neutrophils # Man Lymphocytes # (Manual) Monocytes # (Manual) Percent Retic PT 22.0 H INR 1.92 H APTT Heparin Anti-Xa Level 0.14 L POC ABG pH POC ABG pCO2 POC ABG pO2 Sodium Potassium Chloride Carbon Dioxide BUN Creatinine Glucose POC Glucose 230 H Calcium Phosphorus Iron TIBC Lactate Dehydrogenase Total Creatine Kinase NT-Pro-B Natriuret Pep Total Protein Albumin Zcohe-7-Utoccjrze Mfojn-8-Dnixqhjxs Beta Globulins PEP Interpretation Cholesterol LDL Cholesterol Direct Vitamin B12 Urine Creatinine Crossmatch 04/20/16 04/20/16 04/20/16 03:55 04:16 05:52 WBC RBC Hgb Hct MCV MCH MCHC RDW Plt Count Lymph % (Auto) [place] % (Auto) Lymph # [place] # Baso # Seg Neutrophils % Seg Neuts % (Manual) Lymphocytes % (Manual) Seg Neutrophils # Seg Neutrophils # Man Lymphocytes # (Manual) Monocytes # (Manual) Percent Retic PT INR APTT Heparin Anti-Xa Level POC ABG pH 7.474 H POC ABG pCO2 26.5 L POC ABG pO2 Sodium Potassium Chloride Carbon Dioxide 18 L BUN 38 H Creatinine 2.7 H D Glucose 159 H POC Glucose 214 H Calcium 8.0 L Phosphorus Iron TIBC Lactate Dehydrogenase Total Creatine Kinase NT-Pro-B Natriuret Pep Total Protein Albumin Pakdg-0-Iixoppwyj Wnkyc-4-Smmlgizlk Beta Globulins PEP Interpretation Cholesterol LDL Cholesterol Direct Vitamin B12 Urine Creatinine Crossmatch 04/20/16 04/20/16 04/20/16 10:32 11:27 11:50 WBC RBC Hgb Hct MCV MCH MCHC RDW Plt Count Lymph % (Auto) [place] % (Auto) Lymph # [place] # Baso # Seg Neutrophils % Seg Neuts % (Manual) Lymphocytes % (Manual) Seg Neutrophils # Seg Neutrophils # Man Lymphocytes # (Manual) Monocytes # (Manual) Percent Retic PT INR APTT Heparin Anti-Xa Level POC ABG pH POC ABG pCO2 POC ABG pO2 Sodium Potassium Chloride Carbon Dioxide 20 L BUN 45 H Creatinine 3.0 H Glucose 215 H POC Glucose 248 H Calcium 8.0 L Phosphorus Iron TIBC Lactate Dehydrogenase Total Creatine Kinase NT-Pro-B Natriuret Pep Total Protein Albumin Jxxzw-5-Lvqaodkha Lrsjg-3-Rixavnqzs Beta Globulins PEP Interpretation Cholesterol LDL Cholesterol Direct Vitamin B12 Urine Creatinine 85.5 H Crossmatch 04/20/16 04/21/16 04/21/16 16:59 00:13 04:29 WBC RBC Hgb Hct MCV MCH MCHC RDW Plt Count Lymph % (Auto) [place] % (Auto) Lymph # [place] # Baso # Seg Neutrophils % Seg Neuts % (Manual) Lymphocytes % (Manual) Seg Neutrophils # Seg Neutrophils # Man Lymphocytes # (Manual) Monocytes # (Manual) Percent Retic PT 18.1 H INR 1.50 H APTT Heparin Anti-Xa Level 0.10 L POC ABG pH POC ABG pCO2 POC ABG pO2 Sodium Potassium Chloride Carbon Dioxide BUN Creatinine Glucose POC Glucose 312 H 287 H Calcium Phosphorus Iron TIBC Lactate Dehydrogenase Total Creatine Kinase NT-Pro-B Natriuret Pep Total Protein Albumin Bdkdm-0-Ggjkluenl Rtmcn-5-Uegctzgph Beta Globulins PEP Interpretation Cholesterol LDL Cholesterol Direct Vitamin B12 Urine Creatinine Crossmatch 04/21/16 04/21/16 04/21/16 04:29 04:29 04:55 WBC 15.4 H RBC 3.24 L Hgb 8.4 L Hct 25.6 L MCV 79 L MCH 26 L MCHC RDW 16.1 H Plt Count Lymph % (Auto) 6.8 L [place] % (Auto) 12.9 H Lymph # 1.0 L [place] # 2.0 H Baso # Seg Neutrophils % 79.8 H Seg Neuts % (Manual) Lymphocytes % (Manual) Seg Neutrophils # 12.3 H Seg Neutrophils # Man Lymphocytes # (Manual) Monocytes # (Manual) Percent Retic PT INR APTT Heparin Anti-Xa Level POC ABG pH 7.512 H POC ABG pCO2 25.4 L POC ABG pO2 Sodium 135 L Potassium Chloride Carbon Dioxide 18 L BUN 57 H Creatinine 3.9 H Glucose 202 H POC Glucose Calcium 8.0 L Phosphorus Iron TIBC Lactate Dehydrogenase Total Creatine Kinase NT-Pro-B Natriuret Pep Total Protein Albumin Jbqug-6-Lnoaaypff Mebaj-5-Ftczokuea Beta Globulins PEP Interpretation Cholesterol LDL Cholesterol Direct Vitamin B12 Urine Creatinine Crossmatch 04/21/16 04/21/16 04/21/16 05:20 12:08 12:16 WBC RBC Hgb Hct MCV MCH MCHC RDW Plt Count Lymph % (Auto) [place] % (Auto) Lymph # [place] # Baso # Seg Neutrophils % Seg Neuts % (Manual) Lymphocytes % (Manual) Seg Neutrophils # Seg Neutrophils # Man Lymphocytes # (Manual) Monocytes # (Manual) Percent Retic PT INR APTT Heparin Anti-Xa Level 0.16 L POC ABG pH POC ABG pCO2 POC ABG pO2 Sodium Potassium Chloride Carbon Dioxide BUN Creatinine Glucose POC Glucose 203 H 221 H Calcium Phosphorus Iron TIBC Lactate Dehydrogenase Total Creatine Kinase NT-Pro-B Natriuret Pep Total Protein Albumin Moyex-4-Ijzxshrly Kolcs-1-[place] Beta Globulins PEP Interpretation Cholesterol LDL Cholesterol Direct Vitamin B12 Urine Creatinine Crossmatch 04/21/16 04/22/16 04/22/16 17:22 05:01 05:20 WBC RBC Hgb Hct MCV MCH MCHC RDW Plt Count Lymph % (Auto) [place] % (Auto) Lymph # [place] # Baso # Seg Neutrophils % Seg Neuts % (Manual) Lymphocytes % (Manual) Seg Neutrophils # Seg Neutrophils # Man Lymphocytes # (Manual) Monocytes # (Manual) Percent Retic PT 17.5 H INR 1.44 H APTT Heparin Anti-Xa Level POC ABG pH 7.460 H POC ABG pCO2 27.9 L POC ABG pO2 Sodium Potassium Chloride Carbon Dioxide BUN Creatinine Glucose POC Glucose 189 H Calcium Phosphorus Iron TIBC Lactate Dehydrogenase Total Creatine Kinase NT-Pro-B Natriuret Pep Total Protein Albumin Ivoka-0-Jcjwphkoq Iokrq-4-Icyjxwfou Beta Globulins PEP Interpretation Cholesterol LDL Cholesterol Direct Vitamin B12 Urine Creatinine Crossmatch 04/22/16 04/22/16 04/22/16 05:43 06:40 08:08 WBC RBC Hgb Hct MCV MCH MCHC RDW Plt Count Lymph % (Auto) [place] % (Auto) Lymph # [place] # Baso # Seg Neutrophils % Seg Neuts % (Manual) Lymphocytes % (Manual) Seg Neutrophils # Seg Neutrophils # Man Lymphocytes # (Manual) Monocytes # (Manual) Percent Retic PT INR APTT Heparin Anti-Xa Level POC ABG pH POC ABG pCO2 POC ABG pO2 Sodium Potassium Chloride Carbon Dioxide BUN Creatinine Glucose POC Glucose 56 L 136 H 134 H Calcium Phosphorus Iron TIBC Lactate Dehydrogenase Total Creatine Kinase NT-Pro-B Natriuret Pep Total Protein Albumin Jhkpw-3-Fmcvroaxg Osars-3-Mszjfiuhf Beta Globulins PEP Interpretation Cholesterol LDL Cholesterol Direct Vitamin B12 Urine Creatinine Crossmatch 04/22/16 04/22/16 04/22/16 11:18 12:10 18:17 WBC RBC Hgb Hct MCV MCH MCHC RDW Plt Count Lymph % (Auto) [place] % (Auto) Lymph # [place] # Baso # Seg Neutrophils % Seg Neuts % (Manual) Lymphocytes % (Manual) Seg Neutrophils # Seg Neutrophils # Man Lymphocytes # (Manual) Monocytes # (Manual) Percent Retic PT INR APTT Heparin Anti-Xa Level 0.12 L POC ABG pH POC ABG pCO2 POC ABG pO2 Sodium Potassium Chloride Carbon Dioxide BUN Creatinine Glucose POC Glucose 142 H 227 H Calcium Phosphorus Iron TIBC Lactate Dehydrogenase Total Creatine Kinase NT-Pro-B Natriuret Pep Total Protein Albumin Odrrh-5-Gukzvwrhk Pgrdk-8-Llxhbapyw Beta Globulins PEP Interpretation Cholesterol LDL Cholesterol Direct Vitamin B12 Urine Creatinine Crossmatch 04/22/16 04/22/16 04/23/16 22:28 23:47 04:49 WBC RBC Hgb Hct MCV MCH MCHC RDW Plt Count Lymph % (Auto) [place] % (Auto) Lymph # [place] # Baso # Seg Neutrophils % Seg Neuts % (Manual) Lymphocytes % (Manual) Seg Neutrophils # Seg Neutrophils # Man Lymphocytes # (Manual) Monocytes # (Manual) Percent Retic PT INR APTT Heparin Anti-Xa Level 0.16 L POC ABG pH POC ABG pCO2 32.6 L POC ABG pO2 122 H Sodium Potassium Chloride Carbon Dioxide BUN Creatinine Glucose POC Glucose 266 H Calcium Phosphorus Iron TIBC Lactate Dehydrogenase Total Creatine Kinase NT-Pro-B Natriuret Pep Total Protein Albumin Hvnlr-2-Byalyczob Gwkbs-2-Rjqvtvpor Beta Globulins PEP Interpretation Cholesterol LDL Cholesterol Direct Vitamin B12 Urine Creatinine Crossmatch 04/23/16 04/23/16 04/23/16 05:41 08:05 08:34 WBC RBC Hgb Hct MCV MCH MCHC RDW Plt Count Lymph % (Auto) [place] % (Auto) Lymph # [place] # Baso # Seg Neutrophils % Seg Neuts % (Manual) Lymphocytes % (Manual) Seg Neutrophils # Seg Neutrophils # Man Lymphocytes # (Manual) Monocytes # (Manual) Percent Retic PT INR APTT Heparin Anti-Xa Level POC ABG pH POC ABG pCO2 POC ABG pO2 Sodium Potassium Chloride 109.5 H Carbon Dioxide 21 L BUN 23 H Creatinine Glucose 227 H POC Glucose 227 H 224 H Calcium 8.2 L Phosphorus Iron TIBC Lactate Dehydrogenase Total Creatine Kinase NT-Pro-B Natriuret Pep Total Protein Albumin Zwwol-9-Nfstdldta Unxqo-3-Cmarouzir Beta Globulins PEP Interpretation Cholesterol LDL Cholesterol Direct Vitamin B12 Urine Creatinine Crossmatch 04/23/16 04/23/16 04/23/16 10:45 11:37 22:49 WBC RBC Hgb Hct MCV MCH MCHC RDW Plt Count Lymph % (Auto) [place] % (Auto) Lymph # [place] # Baso # Seg Neutrophils % Seg Neuts % (Manual) Lymphocytes % (Manual) Seg Neutrophils # Seg Neutrophils # Man Lymphocytes # (Manual) Monocytes # (Manual) Percent Retic PT 15.9 H INR 1.28 H APTT Heparin Anti-Xa Level 0.12 L POC ABG pH POC ABG pCO2 POC ABG pO2 Sodium Potassium Chloride Carbon Dioxide BUN Creatinine Glucose POC Glucose 256 H Calcium Phosphorus Iron TIBC Lactate Dehydrogenase Total Creatine Kinase NT-Pro-B Natriuret Pep Total Protein Albumin Efrsy-9-Fjfchdzen Lsdqm-8-Ynwjaupos Beta Globulins PEP Interpretation Cholesterol LDL Cholesterol Direct Vitamin B12 Urine Creatinine Crossmatch 04/23/16 04/24/16 04/24/16 23:59 05:29 06:03 WBC RBC Hgb Hct MCV MCH MCHC RDW Plt Count Lymph % (Auto) [place] % (Auto) Lymph # [place] # Baso # Seg Neutrophils % Seg Neuts % (Manual) Lymphocytes % (Manual) Seg Neutrophils # Seg Neutrophils # Man Lymphocytes # (Manual) Monocytes # (Manual) Percent Retic PT INR APTT Heparin Anti-Xa Level POC ABG pH 7.464 H POC ABG pCO2 32.4 L POC ABG pO2 115 H Sodium Potassium Chloride Carbon Dioxide BUN Creatinine Glucose POC Glucose 176 H 256 H Calcium Phosphorus Iron TIBC Lactate Dehydrogenase Total Creatine Kinase NT-Pro-B Natriuret Pep Total Protein Albumin Peomj-4-Smisyxbwo Ywedm-2-Dxrkdkkqk Beta Globulins PEP Interpretation Cholesterol LDL Cholesterol Direct Vitamin B12 Urine Creatinine Crossmatch 04/24/16 04/24/16 04/24/16 07:59 12:10 17:17 WBC RBC Hgb Hct MCV MCH MCHC RDW Plt Count Lymph % (Auto) [place] % (Auto) Lymph # [place] # Baso # Seg Neutrophils % Seg Neuts % (Manual) Lymphocytes % (Manual) Seg Neutrophils # Seg Neutrophils # Man Lymphocytes # (Manual) Monocytes # (Manual) Percent Retic PT INR APTT Heparin Anti-Xa Level 0.18 L POC ABG pH POC ABG pCO2 POC ABG pO2 Sodium Potassium Chloride Carbon Dioxide BUN Creatinine Glucose POC Glucose 304 H 325 H Calcium Phosphorus Iron TIBC Lactate Dehydrogenase Total Creatine Kinase NT-Pro-B Natriuret Pep Total Protein Albumin Swfga-7-Pjgylptde Uwkxu-7-Byxdfvpny Beta Globulins PEP Interpretation Cholesterol LDL Cholesterol Direct Vitamin B12 Urine Creatinine Crossmatch 04/25/16 04/25/16 04/25/16 00:52 06:40 06:44 WBC RBC Hgb Hct MCV MCH MCHC RDW Plt Count Lymph % (Auto) [place] % (Auto) Lymph # [place] # Baso # Seg Neutrophils % Seg Neuts % (Manual) Lymphocytes % (Manual) Seg Neutrophils # Seg Neutrophils # Man Lymphocytes # (Manual) Monocytes # (Manual) Percent Retic PT INR APTT Heparin Anti-Xa Level 0.11 L POC ABG pH POC ABG pCO2 POC ABG pO2 Sodium Potassium Chloride Carbon Dioxide BUN Creatinine Glucose POC Glucose 212 H 184 H Calcium Phosphorus Iron TIBC Lactate Dehydrogenase Total Creatine Kinase NT-Pro-B Natriuret Pep Total Protein Albumin Uuioj-4-Obyivjqzy Kbspk-5-Zhginkpxm Beta Globulins PEP Interpretation Cholesterol LDL Cholesterol Direct Vitamin B12 Urine Creatinine Crossmatch 04/25/16 04/25/16 04/25/16 11:40 13:26 17:27 WBC RBC Hgb Hct MCV MCH MCHC RDW Plt Count Lymph % (Auto) [place] % (Auto) Lymph # [place] # Baso # Seg Neutrophils % Seg Neuts % (Manual) Lymphocytes % (Manual) Seg Neutrophils # Seg Neutrophils # Man Lymphocytes # (Manual) Monocytes # (Manual) Percent Retic PT INR APTT Heparin Anti-Xa Level 0.21 L POC ABG pH POC ABG pCO2 POC ABG pO2 Sodium Potassium Chloride Carbon Dioxide BUN Creatinine Glucose POC Glucose 206 H 204 H Calcium Phosphorus Iron TIBC Lactate Dehydrogenase Total Creatine Kinase NT-Pro-B Natriuret Pep Total Protein Albumin Kifoo-6-Leiarxubk Sbygw-9-Lsyxmygdb Beta Globulins PEP Interpretation Cholesterol LDL Cholesterol Direct Vitamin B12 Urine Creatinine Crossmatch 04/25/16 04/26/16 04/26/16 23:46 06:31 11:51 WBC RBC Hgb Hct MCV MCH MCHC RDW Plt Count Lymph % (Auto) [place] % (Auto) Lymph # [place] # Baso # Seg Neutrophils % Seg Neuts % (Manual) Lymphocytes % (Manual) Seg Neutrophils # Seg Neutrophils # Man Lymphocytes # (Manual) Monocytes # (Manual) Percent Retic PT INR APTT Heparin Anti-Xa Level POC ABG pH POC ABG pCO2 POC ABG pO2 Sodium Potassium Chloride Carbon Dioxide BUN Creatinine Glucose POC Glucose 162 H 148 H 178 H Calcium Phosphorus Iron TIBC Lactate Dehydrogenase Total Creatine Kinase NT-Pro-B Natriuret Pep Total Protein Albumin Ynhjj-6-Njxtiqfzb Kqjxe-8-Auwjbdszm Beta Globulins PEP Interpretation Cholesterol LDL Cholesterol Direct Vitamin B12 Urine Creatinine Crossmatch 04/26/16 04/26/16 04/26/16 12:17 16:16 18:14 WBC RBC Hgb Hct MCV MCH MCHC RDW Plt Count Lymph % (Auto) [place] % (Auto) Lymph # [place] # Baso # Seg Neutrophils % Seg Neuts % (Manual) Lymphocytes % (Manual) Seg Neutrophils # Seg Neutrophils # Man Lymphocytes # (Manual) Monocytes # (Manual) Percent Retic PT INR APTT Heparin Anti-Xa Level POC ABG pH 7.513 H POC ABG pCO2 POC ABG pO2 76 L Sodium Potassium Chloride Carbon Dioxide BUN Creatinine Glucose POC Glucose 186 H 172 H Calcium Phosphorus Iron TIBC Lactate Dehydrogenase Total Creatine Kinase NT-Pro-B Natriuret Pep Total Protein Albumin Upisg-7-Joknqlrch Nelgl-2-Kbdpoznag Beta Globulins PEP Interpretation Cholesterol LDL Cholesterol Direct Vitamin B12 Urine Creatinine Crossmatch 04/26/16 04/26/16 04/27/16 19:27 23:28 04:21 WBC 13.1 H RBC 2.99 L Hgb 7.8 L Hct 24.0 L MCV 81 L MCH 26 L MCHC RDW 16.7 H Plt Count 486 H Lymph % (Auto) 12.5 L [place] % (Auto) 7.9 H Lymph # [place] # 1.0 H Baso # Seg Neutrophils % 77.5 H Seg Neuts % (Manual) Lymphocytes % (Manual) Seg Neutrophils # 10.2 H Seg Neutrophils # Man Lymphocytes # (Manual) Monocytes # (Manual) Percent Retic PT INR APTT Heparin Anti-Xa Level 0.22 L POC ABG pH POC ABG pCO2 POC ABG pO2 Sodium Potassium Chloride Carbon Dioxide BUN Creatinine Glucose POC Glucose 141 H Calcium Phosphorus Iron TIBC Lactate Dehydrogenase Total Creatine Kinase NT-Pro-B Natriuret Pep Total Protein Albumin Lxrpt-9-Jhuyubkud Cgyiz-2-Kvxxprkpt Beta Globulins PEP Interpretation Cholesterol LDL Cholesterol Direct Vitamin B12 Urine Creatinine Crossmatch 04/27/16 04/27/16 04/27/16 04:21 05:46 11:04 WBC RBC Hgb Hct MCV MCH MCHC RDW Plt Count Lymph % (Auto) [place] % (Auto) Lymph # [place] # Baso # Seg Neutrophils % Seg Neuts % (Manual) Lymphocytes % (Manual) Seg Neutrophils # Seg Neutrophils # Man Lymphocytes # (Manual) Monocytes # (Manual) Percent Retic PT INR APTT Heparin Anti-Xa Level POC ABG pH 7.489 H POC ABG pCO2 POC ABG pO2 71 L Sodium Potassium Chloride Carbon Dioxide BUN Creatinine 0.6 L Glucose 187 H POC Glucose 192 H Calcium 8.0 L Phosphorus Iron TIBC Lactate Dehydrogenase Total Creatine Kinase NT-Pro-B Natriuret Pep Total Protein 6.0 L Albumin 2.0 L Fyyvt-9-Jbqrnqhbp Eutdy-8-Lxpeqflgu Beta Globulins PEP Interpretation Cholesterol LDL Cholesterol Direct Vitamin B12 Urine Creatinine Crossmatch 04/27/16 04/27/16 04/27/16 14:12 21:58 23:38 WBC RBC Hgb Hct MCV MCH MCHC RDW Plt Count Lymph % (Auto) [place] % (Auto) Lymph # [place] # Baso # Seg Neutrophils % Seg Neuts % (Manual) Lymphocytes % (Manual) Seg Neutrophils # Seg Neutrophils # Man Lymphocytes # (Manual) Monocytes # (Manual) Percent Retic PT INR APTT Heparin Anti-Xa Level 0.24 L POC ABG pH POC ABG pCO2 POC ABG pO2 Sodium Potassium Chloride Carbon Dioxide BUN Creatinine Glucose POC Glucose 216 H 181 H Calcium Phosphorus Iron TIBC Lactate Dehydrogenase Total Creatine Kinase NT-Pro-B Natriuret Pep Total Protein Albumin Blvla-5-Isslipmbf Arsia-5-Fpxrxrtom Beta Globulins PEP Interpretation Cholesterol LDL Cholesterol Direct Vitamin B12 Urine Creatinine Crossmatch 04/28/16 04/28/16 04/28/16 04:28 05:52 11:31 WBC RBC Hgb Hct MCV MCH MCHC RDW Plt Count Lymph % (Auto) [place] % (Auto) Lymph # [place] # Baso # Seg Neutrophils % Seg Neuts % (Manual) Lymphocytes % (Manual) Seg Neutrophils # Seg Neutrophils # Man Lymphocytes # (Manual) Monocytes # (Manual) Percent Retic PT INR APTT Heparin Anti-Xa Level POC ABG pH 7.524 H POC ABG pCO2 POC ABG pO2 Sodium Potassium Chloride Carbon Dioxide BUN Creatinine Glucose POC Glucose 254 H 280 H Calcium Phosphorus Iron TIBC Lactate Dehydrogenase Total Creatine Kinase NT-Pro-B Natriuret Pep Total Protein Albumin Ypbuf-2-Orkbencxo Qmdcl-6-Nlozraxte Beta Globulins PEP Interpretation Cholesterol LDL Cholesterol Direct Vitamin B12 Urine Creatinine Crossmatch 04/28/16 04/28/16 04/29/16 17:30 19:52 00:47 WBC RBC Hgb Hct MCV MCH MCHC RDW Plt Count Lymph % (Auto) [place] % (Auto) Lymph # [place] # Baso # Seg Neutrophils % Seg Neuts % (Manual) Lymphocytes % (Manual) Seg Neutrophils # Seg Neutrophils # Man Lymphocytes # (Manual) Monocytes # (Manual) Percent Retic PT INR APTT Heparin Anti-Xa Level 0.15 L POC ABG pH POC ABG pCO2 POC ABG pO2 Sodium Potassium Chloride Carbon Dioxide BUN Creatinine Glucose POC Glucose 208 H 265 H Calcium Phosphorus Iron TIBC Lactate Dehydrogenase Total Creatine Kinase NT-Pro-B Natriuret Pep Total Protein Albumin Mplel-6-Rrqtygzla Gvzle-8-Lednbgttz Beta Globulins PEP Interpretation Cholesterol LDL Cholesterol Direct Vitamin B12 Urine Creatinine Crossmatch 04/29/16 04/29/16 04/29/16 04:00 04:00 04:29 WBC 13.4 H RBC 2.56 L Hgb 6.9 L Hct 20.6 L MCV 81 L MCH 27 L MCHC RDW 16.2 H Plt Count 513 H Lymph % (Auto) 10.0 L [place] % (Auto) 12.0 H Lymph # [place] # 1.6 H Baso # Seg Neutrophils % 77.1 H Seg Neuts % (Manual) Lymphocytes % (Manual) Seg Neutrophils # 10.4 H Seg Neutrophils # Man Lymphocytes # (Manual) Monocytes # (Manual) Percent Retic PT INR APTT Heparin Anti-Xa Level POC ABG pH 7.501 H POC ABG pCO2 POC ABG pO2 76 L Sodium Potassium Chloride Carbon Dioxide BUN 27 H Creatinine Glucose 204 H POC Glucose Calcium 8.1 L Phosphorus Iron TIBC Lactate Dehydrogenase Total Creatine Kinase NT-Pro-B Natriuret Pep Total Protein Albumin Tjdno-6-Rsuwidciz Gkprm-1-Zmhhnmoru Beta Globulins PEP Interpretation Cholesterol LDL Cholesterol Direct Vitamin B12 Urine Creatinine Crossmatch 04/29/16 04/29/16 04/29/16 06:03 10:05 10:16 WBC RBC Hgb Hct MCV MCH MCHC RDW Plt Count Lymph % (Auto) [place] % (Auto) Lymph # [place] # Baso # Seg Neutrophils % Seg Neuts % (Manual) Lymphocytes % (Manual) Seg Neutrophils # Seg Neutrophils # Man Lymphocytes # (Manual) Monocytes # (Manual) Percent Retic 3.68 H PT INR APTT Heparin Anti-Xa Level POC ABG pH POC ABG pCO2 POC ABG pO2 Sodium Potassium Chloride Carbon Dioxide BUN Creatinine Glucose POC Glucose 192 H Calcium Phosphorus Iron TIBC Lactate Dehydrogenase Total Creatine Kinase NT-Pro-B Natriuret Pep Total Protein Albumin Txesx-1-Ctcvycfxq Emnab-9-Bernrfvae Beta Globulins PEP Interpretation Cholesterol LDL Cholesterol Direct Vitamin B12 Urine Creatinine Crossmatch See Detail 04/29/16 04/29/16 04/29/16 10:16 10:16 11:23 WBC RBC Hgb Hct MCV MCH MCHC RDW Plt Count Lymph % (Auto) [place] % (Auto) Lymph # [place] # Baso # Seg Neutrophils % Seg Neuts % (Manual) Lymphocytes % (Manual) Seg Neutrophils # Seg Neutrophils # Man Lymphocytes # (Manual) Monocytes # (Manual) Percent Retic PT INR APTT Heparin Anti-Xa Level POC ABG pH POC ABG pCO2 POC ABG pO2 Sodium Potassium Chloride Carbon Dioxide BUN Creatinine Glucose POC Glucose 116 H Calcium Phosphorus Iron 10 L TIBC 138 L Lactate Dehydrogenase 204 H Total Creatine Kinase NT-Pro-B Natriuret Pep Total Protein Albumin Ruihz-5-Upqceukuw Ekadu-6-Nczrpfmpx Beta Globulins PEP Interpretation Cholesterol LDL Cholesterol Direct Vitamin B12 1005 H Urine Creatinine Crossmatch 04/29/16 04/29/16 04/30/16 17:34 23:19 03:19 WBC RBC Hgb 9.0 L Hct 26.7 L D MCV MCH MCHC RDW Plt Count Lymph % (Auto) [place] % (Auto) Lymph # [place] # Baso # Seg Neutrophils % Seg Neuts % (Manual) Lymphocytes % (Manual) Seg Neutrophils # Seg Neutrophils # Man Lymphocytes # (Manual) Monocytes # (Manual) Percent Retic PT INR APTT Heparin Anti-Xa Level POC ABG pH POC ABG pCO2 POC ABG pO2 Sodium Potassium Chloride Carbon Dioxide BUN Creatinine Glucose POC Glucose 142 H 242 H Calcium Phosphorus Iron TIBC Lactate Dehydrogenase Total Creatine Kinase NT-Pro-B Natriuret Pep Total Protein Albumin Elyjv-2-Xjqbwfzoc Twzej-8-Foqjmuwjt Beta Globulins PEP Interpretation Cholesterol LDL Cholesterol Direct Vitamin B12 Urine Creatinine Crossmatch 04/30/16 04/30/16 04/30/16 04:10 04:10 04:32 WBC 13.8 H RBC 3.54 L Hgb 9.3 L Hct 29.1 L MCV 82 L MCH 26 L MCHC RDW 16.5 H Plt Count 535 H Lymph % (Auto) 7.5 L [place] % (Auto) 13.8 H Lymph # 1.0 L [place] # 1.9 H Baso # Seg Neutrophils % 78.0 H Seg Neuts % (Manual) Lymphocytes % (Manual) Seg Neutrophils # 10.7 H Seg Neutrophils # Man Lymphocytes # (Manual) Monocytes # (Manual) Percent Retic PT INR APTT Heparin Anti-Xa Level POC ABG pH 7.519 H POC ABG pCO2 33.6 L POC ABG pO2 79 L Sodium 146 H Potassium Chloride Carbon Dioxide BUN Creatinine 0.7 L Glucose 242 H POC Glucose Calcium 8.3 L Phosphorus Iron TIBC Lactate Dehydrogenase Total Creatine Kinase NT-Pro-B Natriuret Pep Total Protein Albumin Lrehu-1-Pvvqkoywi Fpwzx-0-Esckesfbj Beta Globulins PEP Interpretation Cholesterol LDL Cholesterol Direct Vitamin B12 Urine Creatinine Crossmatch 04/30/16 05:33 WBC RBC Hgb Hct MCV MCH MCHC RDW Plt Count Lymph % (Auto) [place] % (Auto) Lymph # [place] # Baso # Seg Neutrophils % Seg Neuts % (Manual) Lymphocytes % (Manual) Seg Neutrophils # Seg Neutrophils # Man Lymphocytes # (Manual) Monocytes # (Manual) Percent Retic PT INR APTT Heparin Anti-Xa Level POC ABG pH POC ABG pCO2 POC ABG pO2 Sodium Potassium Chloride Carbon Dioxide BUN Creatinine Glucose POC Glucose 242 H Calcium Phosphorus Iron TIBC Lactate Dehydrogenase Total Creatine Kinase NT-Pro-B Natriuret Pep Total Protein Albumin Dcwrv-5-Pcwigeaqp Gpcle-6-Suxerpazi Beta Globulins PEP Interpretation Cholesterol LDL Cholesterol Direct Vitamin B12 Urine Creatinine Crossmatch
--- NOTE | 2016-04-30 09:26 | Progress Note ---
Assessment and Plan Assessment and plan: 1. Acute respiratory failure. Patient reintubated on 04/17/16. Continue mechanical ventilation per pulmonary. Tracheostomy yesterday. Continue CPAP trials 2. Acute CVA. CT scan revealed acute ischemic infarct in the right cerebellum. MRI reveals subacute infarct in the right cerebellar hemisphere with associated edema and mass effect as previously described. Patient also with multiple areas of acute infarct in the left occipital and frontal lobes that are most likely embolic. LIZZIE done- No thrombus but decreased flow. Cardiology recommends anticoagulation with Coumadin. 3. Hypotension. Resolved. Patient currently off pressors of Levophed. Echocardiogram revealed EF of 50-55%. 4. Encephalopathy. EEG normal. Etiology likely secondary to CVA +/- hypertension. 5. Group B strep UTI-treated 6. Accelerated hypertension. Continue antihypertensive medications 7. CAD-stable 8. Seizures-continue Keppra. EEG normal. 9. Type 2 diabetes mellitus. Glycemic control. 10. History of aortic dissection status post repair. 11. History of prosthetic aortic valve replacement. Echo with normal function on 08/2015. 12. DVT prophylaxis-on heparin drip. 13. GI prophylaxis-Pepcid 14. Oropharyngeal dysphagia. Patient failed swallow evaluation. Status post PEG placement on 04/17. 15. Anemia. Etiology is unknown. Check iron studies and Hemoccult of stool. Type and cross and transfuse 2 units. The high probability of a clinically significant, sudden or life threatening deterioration of the [respiratory and neurological] system(s) required my full and direct attention, intervention and personal management. The aggregate critical care time was [31] minutes. This time is in addition to time spent performing reported procedures but includes the following: [x] Data Review and interpretation [x] Patient assessment and monitoring of vital signs [x] Documentation [x] Medication orders and management History Interval history: 60 years old -[place] male with nonobstructive CAD per recent CAD, hypertension, hyperlipidemia, bioprosthetic aortic valve replacement, chronic kidney disease, diabetes and seizure disorder who was initially admitted for metabolic encephalopathy with hypernatremia. Patient developed respiratory failure during this hospitalization on 03/27 and was intubated placed on mechanical ventilation. Patient was later extubated during his hospitalization but was reintubated on the evening of 04/16/16. Patient now remains intubated on mechanical ventilation. Patient is also status post PEG tube placement on . Patient remains on mechanical ventilation. Patient status post tracheostomy yesterday. Hospitalist Physical - Constitutional Vitals: Temp Pulse Resp BP Pulse Ox 101.8 F H 108 H 16 147/74 99 04/30/16 07:44 04/30/16 08:05 04/30/16 08:04 04/30/16 08:05 04/30/16 08:05 General appearance: Present: no acute distress, other (trach on mech vent) - EENT Eyes: Present: PERRL, EOM intact ENT: hearing intact, clear oral mucosa, dentition normal - Neck Neck: Present: supple, normal ROM - Respiratory Respiratory effort: normal Respiratory: bilateral: CTA - Cardiovascular Rhythm: regular Heart Sounds: Present: S1 & S2. Absent: gallop, rub - Extremities Extremities: no ischemia, No edema, Full ROM - Abdominal General gastrointestinal: soft, non-tender, non-distended, normal bowel sounds - Integumentary Integumentary: Present: clear, warm, dry - Neurologic Neurologic: CNII-XII intact, moves all extremities Results - Labs CBC & Chem 7: 04/30/16 04:10 04/30/16 04:10 Labs: Laboratory Last Values WBC 13.8 K/mm3 (4.5-11.0) H 04/30/16 04:10 RBC 3.54 M/mm3 (3.65-5.03) L 04/30/16 04:10 Hgb 9.3 gm/dl (11.8-15.2) L 04/30/16 04:10 Hct 29.1 % (35.5-45.6) L 04/30/16 04:10 MCV 82 fl (84-94) L 04/30/16 04:10 MCH 26 pg (28-32) L 04/30/16 04:10 MCHC 32 % (32-34) 04/30/16 04:10 RDW 16.5 % (13.2-15.2) H 04/30/16 04:10 Plt Count 535 K/mm3 (140-440) H 04/30/16 04:10 Lymph % (Auto) 7.5 % (13.4-35.0) L 04/30/16 04:10 [place] % (Auto) 13.8 % (0.0-7.3) H 04/30/16 04:10 Eos % (Auto) 0.3 % (0.0-4.3) 04/30/16 04:10 Baso % (Auto) 0.4 % (0.0-1.8) 04/30/16 04:10 Lymph # 1.0 K/mm3 (1.2-5.4) L 04/30/16 04:10 [place] # 1.9 K/mm3 (0.0-0.8) H 04/30/16 04:10 Eos # 0.0 K/mm3 (0.0-0.4) 04/30/16 04:10 Baso # 0.1 K/mm3 (0.0-0.1) 04/30/16 04:10 Add Manual Diff Complete 04/17/16 12:17 Total Counted 100 04/17/16 12:17 Seg Neutrophils % 78.0 % (40.0-70.0) H 04/30/16 04:10 Seg Neuts % (Manual) 61.0 % (40.0-70.0) 04/17/16 12:17 Band Neutrophils % 27.0 % 04/17/16 12:17 Lymphocytes % (Manual) 3.0 % (13.4-35.0) L 04/17/16 12:17 Reactive Lymphs % (Man) 0 % 04/17/16 12:17 Monocytes % (Manual) 4.0 % (0.0-7.3) 04/17/16 12:17 Eosinophils % (Manual) 0 % (0.0-4.3) 04/17/16 12:17 Basophils % (Manual) 0 % (0.0-1.8) 04/17/16 12:17 Metamyelocytes % 1.0 % 04/17/16 12:17 Myelocytes % 1.0 % 04/17/16 12:17 Promyelocytes % 3.0 % 04/17/16 12:17 Blast Cells % 0 % 04/17/16 12:17 Nucleated RBC % Not Reportable 04/17/16 12:17 Seg Neutrophils # 10.7 K/mm3 (1.8-7.7) H 04/30/16 04:10 Seg Neutrophils # Man 10.1 K/mm3 (1.8-7.7) H 04/17/16 12:17 Band Neutrophils # 4.5 K/mm3 04/17/16 12:17 Lymphocytes # (Manual) 0.5 K/mm3 (1.2-5.4) L 04/17/16 12:17 Abs React Lymphs (Man) 0.0 K/mm3 04/17/16 12:17 Monocytes # (Manual) 0.7 K/mm3 (0.0-0.8) 04/17/16 12:17 Eosinophils # (Manual) 0.0 K/mm3 (0.0-0.4) 04/17/16 12:17 Basophils # (Manual) 0.0 K/mm3 (0.0-0.1) 04/17/16 12:17 Metamyelocytes # 0.2 K/mm3 04/17/16 12:17 Myelocytes # 0.2 K/mm3 04/17/16 12:17 Promyelocytes # 0.5 K/mm3 04/17/16 12:17 Blast Cells # 0.0 K/mm3 04/17/16 12:17 WBC Morphology Not Reportable 04/17/16 12:17 Hypersegmented Neuts Not Reportable 04/17/16 12:17 Hyposegmented Neuts Not Reportable 04/17/16 12:17 Hypogranular Neuts Not Reportable 04/17/16 12:17 Smudge Cells Not Reportable 04/17/16 12:17 Toxic Granulation Not Reportable 04/17/16 12:17 Toxic Vacuolation Not Reportable 04/17/16 12:17 Dohle Bodies Not Reportable 04/17/16 12:17 Pelger-Huet Anomaly Not Reportable 04/17/16 12:17 Corina Rods Not Reportable 04/17/16 12:17 Platelet Estimate Appears normal 04/17/16 12:17 Clumped Platelets Not Reportable 04/17/16 12:17 Plt Clumps, EDTA Not Reportable 04/17/16 12:17 Large Platelets Not Reportable 04/17/16 12:17 Giant Platelets Not Reportable 04/17/16 12:17 Platelet Satelliting Not Reportable 04/17/16 12:17 Plt Morphology Comment Not Reportable 04/17/16 12:17 RBC Morphology Not Reportable 04/17/16 12:17 Dimorphic RBCs Not Reportable 04/17/16 12:17 Polychromasia Few 04/17/16 12:17 Hypochromasia Not Reportable 04/17/16 12:17 Poikilocytosis Not Reportable 04/17/16 12:17 Anisocytosis 1+ 04/17/16 12:17 Microcytosis Few 04/17/16 12:17 Macrocytosis Not Reportable 04/17/16 12:17 Spherocytes Not Reportable 04/17/16 12:17 Pappenheimer Bodies Not Reportable 04/17/16 12:17 Sickle Cells Not Reportable 04/17/16 12:17 Target Cells Not Reportable 04/17/16 12:17 Tear Drop Cells Not Reportable 04/17/16 12:17 Ovalocytes Not Reportable 04/17/16 12:17 Helmet Cells Not Reportable 04/17/16 12:17 Mcgrath-Lankin Bodies Not Reportable 04/17/16 12:17 [place] Rings Not Reportable 04/17/16 12:17 [place] Cells Not Reportable 04/17/16 12:17 Bite Cells Not Reportable 04/17/16 12:17 Crenated Cell Not Reportable 04/17/16 12:17 Elliptocytes Not Reportable 04/17/16 12:17 Acanthocytes (Spur) Not Reportable 04/17/16 12:17 Rouleaux Not Reportable 04/17/16 12:17 Hemoglobin C Crystals Not Reportable 04/17/16 12:17 Schistocytes Not Reportable 04/17/16 12:17 Malaria parasites Not Reportable 04/17/16 12:17 Percent Retic 3.68 % (0.78-2.58) H 04/29/16 10:16 Gideon Bodies Not Reportable 04/17/16 12:17 Hem Pathologist Commnt No 04/17/16 12:17 PT 15.9 Sec. (12.2-14.9) H 04/23/16 10:45 INR 1.28 (0.87-1.13) H 04/23/16 10:45 APTT 42.1 Sec. (24.2-36.6) H 04/04/16 09:55 Heparin Anti-Xa Level 0.30 U.I./ml (0.3-0.7) 04/29/16 22:55 POC ABG pH 7.519 (7.35-7.45) H 04/30/16 04:32 POC ABG pCO2 33.6 (35-45) L 04/30/16 04:32 POC ABG pO2 79 (80-105) L 04/30/16 04:32 POC ABG HCO3 27.4 04/30/16 04:32 POC ABG Total CO2 28 04/30/16 04:32 POC ABG O2 Sat 97 04/30/16 04:32 POC ABG Base Excess 5 04/30/16 04:32 VBG pH 7.418 (7.320-7.420) 03/24/16 14:00 FiO2 25 % 04/30/16 04:32 Sodium 146 mmol/L (137-145) H 04/30/16 04:10 Potassium 4.2 mmol/L (3.6-5.0) 04/30/16 04:10 Chloride 104.9 mmol/L (98-107) 04/30/16 04:10 Carbon Dioxide 27 mmol/L (22-30) 04/30/16 04:10 Anion Gap 18 mmol/L 04/30/16 04:10 BUN 20 mg/dL (9-20) 04/30/16 04:10 Creatinine 0.7 mg/dL (0.8-1.5) L 04/30/16 04:10 Estimated GFR > 60 ml/min 04/30/16 04:10 BUN/Creatinine Ratio 28.57 % 04/30/16 04:10 Glucose 242 mg/dL (75-100) H 04/30/16 04:10 POC Glucose 242 (70-105) H 04/30/16 05:33 Hemoglobin A1c 9.6 % (4-6) H 03/24/16 14:00 Lactic Acid 1.6 mmol/L (0.7-2.0) 04/17/16 12:17 Calcium 8.3 mg/dL (8.4-10.2) L 04/30/16 04:10 Phosphorus 2.3 mg/dL (2.5-4.5) L D 03/30/16 04:00 Magnesium 1.9 mg/dL (1.7-2.3) 03/30/16 04:00 Iron 10 ug/dL (49-181) L 04/29/16 10:16 TIBC 138 mcg/dL (250-450) L 04/29/16 10:16 Ferritin 336.4 ng/mL (13.0-400.0) 04/29/16 10:16 Total Bilirubin < 0.2 mg/dL (0.1-1.2) 04/27/16 04:21 AST 18 units/L (5-40) 04/27/16 04:21 ALT 39 units/L (7-56) 04/27/16 04:21 Alkaline Phosphatase 103 units/L (35-129) 04/27/16 04:21 Lactate Dehydrogenase 204 units/L (91-180) H 04/29/16 10:16 Total Creatine Kinase 356 units/L (55-170) H 03/28/16 13:29 Troponin T < 0.010 ng/mL (0.00-0.029) 03/28/16 13:29 NT-Pro-B Natriuret Pep 897.9 pg/mL (0-900) 04/03/16 04:10 Serum Total Protein 7.1 g/dL (6.1-8.1) 03/25/16 13:00 Total Protein 6.0 g/dL (6.3-8.2) L 04/27/16 04:21 Albumin 2.0 g/dL (3.9-5) L 04/27/16 04:21 Albumin/Globulin Ratio 0.5 % 04/27/16 04:21 Dupil-6-Zwqkzuehk See scanned report 03/31/16 12:20 Bqbln-1-Obdybeatg See scanned report 03/31/16 12:20 Beta Globulins See scanned report 03/31/16 12:20 Gtkb-2-Elspqrsosexmi 2.46 mg/L (<=2.51) 03/25/16 13:00 Gamma Globulins See scanned report 03/31/16 12:20 Abnorm Protein Band 1 see below (()) 03/25/16 13:00 PEP Interpretation See scanned report 03/31/16 12:20 Triglycerides 88 mg/dL (2-149) 03/24/16 17:58 Cholesterol 221 mg/dL (50-199) H 03/24/16 17:58 LDL Cholesterol Direct 146 mg/dL (50-130) H 03/24/16 17:58 HDL Cholesterol 58 mg/dL (40-59) 03/24/16 17:58 Cholesterol/HDL Ratio 3.81 % 03/24/16 17:58 Vitamin B12 1005 pg/mL (211-911) H 04/29/16 10:16 Folate 12.78 ng/mL (7.3-26.0) 04/29/16 10:16 Urine Color Yellow (Yellow) 03/24/16 14:27 Urine Turbidity Clear (Clear) 03/24/16 14:27 Urine pH 5.0 (5.0-7.0) 03/24/16 14:27 Ur Specific [place] 1.017 (1.003-1.030) 03/24/16 14:27 Urine Protein <15 mg/dl mg/dL (Negative) 03/24/16 14:27 Urine Glucose (UA) >=500 mg/dL (Negative) 03/24/16 14:27 Urine Ketones Neg mg/dL (Negative) 03/24/16 14:27 Urine Blood Sm (Negative) 03/24/16 14:27 Urine Nitrite Neg (Negative) 03/24/16 14:27 Urine Bilirubin Neg (Negative) 03/24/16 14:27 Urine Urobilinogen < 2.0 mg/dL (<2.0) 03/24/16 14:27 Ur Leukocyte Esterase Neg (Negative) 03/24/16 14:27 Urine WBC (Auto) 2.0 /HPF (0.0-6.0) 03/24/16 14:27 Urine RBC (Auto) < 1.0 /HPF (0.0-6.0) 03/24/16 14:27 U Epithel Cells (Auto) 4.0 /HPF (0-13.0) 03/24/16 14:27 Hyaline Casts 1 /LPF 03/24/16 14:27 Urine Mucus Few /HPF 03/24/16 14:27 Ur Random Creatinine See scanned report 03/31/16 12:20 U Random Total Protein See scanned report 03/31/16 12:20 Urine Creatinine 85.5 mg/dL (0.1-20.0) H 04/20/16 11:50 Protein/Creatinin Ratio See scanned report 03/31/16 12:20 Urine Sodium 17 mEq/L 04/20/16 11:50 U Abnormal Prot Band 1 See scanned report 03/31/16 12:20 U Abnormal Prot Band 2 See scanned report 03/31/16 12:20 U Abnormal Prot Band 3 See scanned report 03/31/16 12:20 Ketones 1.0 mg/dL (0.2-2.8) 03/24/16 14:00 Blood Type A POSITIVE 04/29/16 10:05 Antibody Screen Negative 04/29/16 10:05 Crossmatch See Detail 04/29/16 10:05
[2016-04-30] MEDS: KEPPRA PO SCH ×2 (10:00→21:27)
[2016-04-30] MEDS: LEVEMIR SUB-Q SCH (10:00)
[2016-04-30] MEDS: CORDARONE PO SCH (10:01)
[2016-04-30] MEDS: NORMODYNE PO SCH ×3 (10:01→21:26)
[2016-04-30] MEDS: BABY ASPIRIN PO SCH (10:01)
[2016-04-30] MEDS: PEPCID PO SCH ×2 (10:01→21:27)
[2016-04-30] MEDS: ZESTRIL PO SCH ×2 (10:01→21:27)
[2016-04-30] MEDS: NORVASC PO SCH (10:02)
--- NOTE | 2016-04-30 16:23 | Progress Note ---
Assessment and Plan s/p trach will sign-off Thank you Subjective Date of service: 04/30/16 Patient Reports: Positive: no new complaints Objective Vital Signs - 12hr 04/30/16 04/30/16 04/30/16 04:30 05:00 05:30 Temperature Pulse Rate 107 H 106 H 108 H Pulse Rate [ Anterior Bilateral Throughout] Respiratory Rate [Anterior Bilateral Throughout] Blood Pressure 136/71 143/73 148/80 O2 Sat by Pulse 99 99 100 Oximetry 04/30/16 04/30/16 04/30/16 06:00 06:02 06:30 Temperature Pulse Rate 119 H 114 H 111 H Pulse Rate [ Anterior Bilateral Throughout] Respiratory Rate [Anterior Bilateral Throughout] Blood Pressure 164/83 164/83 130/79 O2 Sat by Pulse 97 98 99 Oximetry 04/30/16 04/30/16 04/30/16 07:00 07:30 07:44 Temperature 101.8 F H Pulse Rate 108 H 109 H Pulse Rate [ Anterior Bilateral Throughout] Respiratory Rate [Anterior Bilateral Throughout] Blood Pressure 137/77 149/83 O2 Sat by Pulse 99 100 Oximetry 04/30/16 04/30/16 04/30/16 08:00 08:04 08:05 Temperature Pulse Rate 102 H 108 H Pulse Rate [ 105 H Anterior Bilateral Throughout] Respiratory 16 Rate [Anterior Bilateral Throughout] Blood Pressure 147/74 147/74 O2 Sat by Pulse 100 99 Oximetry 04/30/16 04/30/16 04/30/16 08:30 09:00 09:30 Temperature Pulse Rate 111 H 116 H 115 H Pulse Rate [ Anterior Bilateral Throughout] Respiratory Rate [Anterior Bilateral Throughout] Blood Pressure 135/74 149/83 156/84 O2 Sat by Pulse 100 98 99 Oximetry 04/30/16 04/30/16 04/30/16 10:01 10:02 10:30 Temperature Pulse Rate 110 H 102 H Pulse Rate [ Anterior Bilateral Throughout] Respiratory Rate [Anterior Bilateral Throughout] Blood Pressure 126/69 166/85 134/68 O2 Sat by Pulse 99 100 Oximetry 04/30/16 04/30/16 04/30/16 11:00 11:30 12:00 Temperature 101.1 F H Pulse Rate 92 H 86 Pulse Rate [ Anterior Bilateral Throughout] Respiratory Rate [Anterior Bilateral Throughout] Blood Pressure 121/67 101/53 O2 Sat by Pulse 100 100 Oximetry 12/3004/30/16 04/30/16 13:21 14:00 14:13 Temperature Pulse Rate 94 H 97 H Pulse Rate [ 99 H Anterior Bilateral Throughout] Respiratory 18 Rate [Anterior Bilateral Throughout] Blood Pressure 99/58 129/63 O2 Sat by Pulse 98 Oximetry 04/30/16 15:39 Temperature Pulse Rate 98 H Pulse Rate [ Anterior Bilateral Throughout] Respiratory Rate [Anterior Bilateral Throughout] Blood Pressure 101/61 O2 Sat by Pulse 98 Oximetry - Neck other (Trach site clean and dry) - Labs 04/30/16 04:10 04/30/16 04:10 Diabetes panel 04/30/16 Range/Units 04:10 Sodium 146 H (137-145) mmol/L Potassium 4.2 (3.6-5.0) mmol/L Chloride 104.9 (98-107) mmol/L Carbon Dioxide 27 (22-30) mmol/L BUN 20 (9-20) mg/dL Creatinine 0.7 L (0.8-1.5) mg/dL Glucose 242 H (75-100) mg/dL Calcium 8.3 L (8.4-10.2) mg/dL Calcium panel 04/30/16 Range/Units 04:10 Calcium 8.3 L (8.4-10.2) mg/dL Pituitary panel 04/30/16 Range/Units 04:10 Sodium 146 H (137-145) mmol/L Potassium 4.2 (3.6-5.0) mmol/L Chloride 104.9 (98-107) mmol/L Carbon Dioxide 27 (22-30) mmol/L BUN 20 (9-20) mg/dL Creatinine 0.7 L (0.8-1.5) mg/dL Glucose 242 H (75-100) mg/dL Calcium 8.3 L (8.4-10.2) mg/dL Adrenal panel 04/30/16 Range/Units 04:10 Sodium 146 H (137-145) mmol/L Potassium 4.2 (3.6-5.0) mmol/L Chloride 104.9 (98-107) mmol/L Carbon Dioxide 27 (22-30) mmol/L BUN 20 (9-20) mg/dL Creatinine 0.7 L (0.8-1.5) mg/dL Glucose 242 H (75-100) mg/dL Calcium 8.3 L (8.4-10.2) mg/dL
[2016-04-30] MEDS: HEPARIN/ 0.45% NACL-25,000 UNIT/500 ML 500 ML IV SCH (18:07)
[2016-05-01] MEDS: NOVOLOG SUB-Q SCH ×5 (01:39→23:19)
[2016-05-01] MEDS: DUONEB 0.5 MG-3 MG/3 ML SOLN IH SCH ×4 (01:47→20:01)
[2016-05-01 04:54] LABS: Basophils % (Auto) 0.5 % (0.0-1.8); Eosinophils % (Auto) 0.3 % (0.0-4.3); Hematocrit 24.4 % (35.5-45.6); Hemoglobin 7.9 gm/dl (11.8-15.2); Mean Corpuscular HGB Conc 32 % (32-34); Mean Corpuscular Hemoglobin 26 pg (28-32); Mean Corpuscular Volume 82 fl (84-94); Platelet Count 481 K/mm3 (140-440); Red Blood Count 2.99 M/mm3 (3.65-5.03); Red Cell Distribution Width 16.9 % (13.2-15.2); White Blood Count 15.9 K/mm3 (4.5-11.0)
[2016-05-01 05:16] LABS: BUN/Creatinine Ratio 31.42; Blood Urea Nitrogen 22 mg/dL (9-20); Calcium 8.2 mg/dL (8.4-10.2); Carbon Dioxide 29 mmol/L (22-30); Chloride 107.8 mmol/L (98-107); Glucose 229 mg/dL (75-100); Potassium 3.9 mmol/L (3.6-5.0); Sodium 147 mmol/L (137-145)
[2016-05-01 05:34] LABS: Anion Gap 14 mmol/L
[2016-05-01] MEDS: NORMODYNE PO SCH ×3 (08:45→20:30)
--- NOTE | 2016-05-01 09:09 | Progress Note ---
Assessment and Plan Assessment and plan: 1. Acute respiratory failure. Patient reintubated on 04/17/16. Continue mechanical ventilation per pulmonary. Tracheostomy on 04/29/16. Continue CPAP trials 2. Acute CVA. CT scan revealed acute ischemic infarct in the right cerebellum. MRI reveals subacute infarct in the right cerebellar hemisphere with associated edema and mass effect as previously described. Patient also with multiple areas of acute infarct in the left occipital and frontal lobes that are most likely embolic. LIZZIE done- No thrombus but decreased flow. Cardiology recommends anticoagulation with Coumadin. 3. Hypotension. Resolved. Patient currently off pressors of Levophed. Echocardiogram revealed EF of 50-55%. 4. Encephalopathy. EEG normal. Etiology likely secondary to CVA +/- hypertension. 5. Group B strep UTI-treated 6. Accelerated hypertension. Continue antihypertensive medications 7. CAD-stable 8. Seizures-continue Keppra. EEG normal. 9. Type 2 diabetes mellitus. Glycemic control. 10. History of aortic dissection status post repair. 11. History of prosthetic aortic valve replacement. Echo with normal function on 08/2015. 12. DVT prophylaxis-on heparin drip. 13. GI prophylaxis-Pepcid 14. Oropharyngeal dysphagia. Patient failed swallow evaluation. Status post PEG placement on 04/17. 15. Anemia. Etiology is unknown. Check iron studies and Hemoccult of stool. Type and cross and transfuse 2 units. The high probability of a clinically significant, sudden or life threatening deterioration of the [respiratory and neurological] system(s) required my full and direct attention, intervention and personal management. The aggregate critical care time was [31] minutes. This time is in addition to time spent performing reported procedures but includes the following: [x] Data Review and interpretation [x] Patient assessment and monitoring of vital signs [x] Documentation [x] Medication orders and management History Interval history: 60 years old -Portuguese male with nonobstructive CAD per recent CAD, hypertension, hyperlipidemia, bioprosthetic aortic valve replacement, chronic kidney disease, diabetes and seizure disorder who was initially admitted for metabolic encephalopathy with hypernatremia. Patient developed respiratory failure during this hospitalization on 03/27 and was intubated placed on mechanical ventilation. Patient was later extubated during his hospitalization but was reintubated on the evening of 04/16/16. Patient now remains intubated on mechanical ventilation. Patient is also status post PEG tube placement on . Patient remains on mechanical ventilation. Patient status post tracheostomy on 04/29/16. Hospitalist Physical - Constitutional Vitals: Temp Pulse Resp BP Pulse Ox 101.6 F H 96 H 20 118/62 99 05/01/16 05:25 05/01/16 07:00 05/01/16 02:35 05/01/16 07:00 05/01/16 07:00 General appearance: Present: no acute distress, other (trach on mech vent) - EENT Eyes: Present: PERRL, EOM intact ENT: hearing intact, clear oral mucosa, dentition normal - Neck Neck: Present: supple, normal ROM - Respiratory Respiratory effort: normal Respiratory: bilateral: diminished, rhonchi - Cardiovascular Rhythm: regular Heart Sounds: Present: S1 & S2. Absent: gallop, rub - Extremities Extremities: no ischemia, No edema, Full ROM - Abdominal General gastrointestinal: soft, non-tender, non-distended, normal bowel sounds - Integumentary Integumentary: Present: clear, warm, dry - Neurologic Neurologic: CNII-XII intact, moves all extremities Results - Labs CBC & Chem 7: 05/01/16 04:00 05/01/16 04:00 Labs: Laboratory Last Values WBC 15.9 K/mm3 (4.5-11.0) H 05/01/16 04:00 RBC 2.99 M/mm3 (3.65-5.03) L 05/01/16 04:00 Hgb 7.9 gm/dl (11.8-15.2) L 05/01/16 04:00 Hct 24.4 % (35.5-45.6) L 05/01/16 04:00 MCV 82 fl (84-94) L 05/01/16 04:00 MCH 26 pg (28-32) L 05/01/16 04:00 MCHC 32 % (32-34) 05/01/16 04:00 RDW 16.9 % (13.2-15.2) H 05/01/16 04:00 Plt Count 481 K/mm3 (140-440) H 05/01/16 04:00 Lymph % (Auto) 9.3 % (13.4-35.0) L 05/01/16 04:00 [place] % (Auto) 15.0 % (0.0-7.3) H 05/01/16 04:00 Eos % (Auto) 0.3 % (0.0-4.3) 05/01/16 04:00 Baso % (Auto) 0.5 % (0.0-1.8) 05/01/16 04:00 Lymph # 1.5 K/mm3 (1.2-5.4) 05/01/16 04:00 [place] # 2.4 K/mm3 (0.0-0.8) H 05/01/16 04:00 Eos # 0.0 K/mm3 (0.0-0.4) 05/01/16 04:00 Baso # 0.1 K/mm3 (0.0-0.1) 05/01/16 04:00 Add Manual Diff Complete 04/17/16 12:17 Total Counted 100 04/17/16 12:17 Seg Neutrophils % 74.9 % (40.0-70.0) H 05/01/16 04:00 Seg Neuts % (Manual) 61.0 % (40.0-70.0) 04/17/16 12:17 Band Neutrophils % 27.0 % 04/17/16 12:17 Lymphocytes % (Manual) 3.0 % (13.4-35.0) L 04/17/16 12:17 Reactive Lymphs % (Man) 0 % 04/17/16 12:17 Monocytes % (Manual) 4.0 % (0.0-7.3) 04/17/16 12:17 Eosinophils % (Manual) 0 % (0.0-4.3) 04/17/16 12:17 Basophils % (Manual) 0 % (0.0-1.8) 04/17/16 12:17 Metamyelocytes % 1.0 % 04/17/16 12:17 Myelocytes % 1.0 % 04/17/16 12:17 Promyelocytes % 3.0 % 04/17/16 12:17 Blast Cells % 0 % 04/17/16 12:17 Nucleated RBC % Not Reportable 04/17/16 12:17 Seg Neutrophils # 11.9 K/mm3 (1.8-7.7) H 05/01/16 04:00 Seg Neutrophils # Man 10.1 K/mm3 (1.8-7.7) H 04/17/16 12:17 Band Neutrophils # 4.5 K/mm3 04/17/16 12:17 Lymphocytes # (Manual) 0.5 K/mm3 (1.2-5.4) L 04/17/16 12:17 Abs React Lymphs (Man) 0.0 K/mm3 04/17/16 12:17 Monocytes # (Manual) 0.7 K/mm3 (0.0-0.8) 04/17/16 12:17 Eosinophils # (Manual) 0.0 K/mm3 (0.0-0.4) 04/17/16 12:17 Basophils # (Manual) 0.0 K/mm3 (0.0-0.1) 04/17/16 12:17 Metamyelocytes # 0.2 K/mm3 04/17/16 12:17 Myelocytes # 0.2 K/mm3 04/17/16 12:17 Promyelocytes # 0.5 K/mm3 04/17/16 12:17 Blast Cells # 0.0 K/mm3 04/17/16 12:17 WBC Morphology Not Reportable 04/17/16 12:17 Hypersegmented Neuts Not Reportable 04/17/16 12:17 Hyposegmented Neuts Not Reportable 04/17/16 12:17 Hypogranular Neuts Not Reportable 04/17/16 12:17 Smudge Cells Not Reportable 04/17/16 12:17 Toxic Granulation Not Reportable 04/17/16 12:17 Toxic Vacuolation Not Reportable 04/17/16 12:17 Dohle Bodies Not Reportable 04/17/16 12:17 Pelger-Huet Anomaly Not Reportable 04/17/16 12:17 Corina Rods Not Reportable 04/17/16 12:17 Platelet Estimate Appears normal 04/17/16 12:17 Clumped Platelets Not Reportable 04/17/16 12:17 Plt Clumps, EDTA Not Reportable 04/17/16 12:17 Large Platelets Not Reportable 04/17/16 12:17 Giant Platelets Not Reportable 04/17/16 12:17 Platelet Satelliting Not Reportable 04/17/16 12:17 Plt Morphology Comment Not Reportable 04/17/16 12:17 RBC Morphology Not Reportable 04/17/16 12:17 Dimorphic RBCs Not Reportable 04/17/16 12:17 Polychromasia Few 04/17/16 12:17 Hypochromasia Not Reportable 04/17/16 12:17 Poikilocytosis Not Reportable 04/17/16 12:17 Anisocytosis 1+ 04/17/16 12:17 Microcytosis Few 04/17/16 12:17 Macrocytosis Not Reportable 04/17/16 12:17 Spherocytes Not Reportable 04/17/16 12:17 Pappenheimer Bodies Not Reportable 04/17/16 12:17 Sickle Cells Not Reportable 04/17/16 12:17 Target Cells Not Reportable 04/17/16 12:17 Tear Drop Cells Not Reportable 04/17/16 12:17 Ovalocytes Not Reportable 04/17/16 12:17 Helmet Cells Not Reportable 04/17/16 12:17 Mcgrath-Frierson Bodies Not Reportable 04/17/16 12:17 [place] Rings Not Reportable 04/17/16 12:17 Tuan Cells Not Reportable 04/17/16 12:17 Bite Cells Not Reportable 04/17/16 12:17 Crenated Cell Not Reportable 04/17/16 12:17 Elliptocytes Not Reportable 04/17/16 12:17 Acanthocytes (Spur) Not Reportable 04/17/16 12:17 Rouleaux Not Reportable 04/17/16 12:17 Hemoglobin C Crystals Not Reportable 04/17/16 12:17 Schistocytes Not Reportable 04/17/16 12:17 Malaria parasites Not Reportable 04/17/16 12:17 Percent Retic 3.68 % (0.78-2.58) H 04/29/16 10:16 Gideon Bodies Not Reportable 04/17/16 12:17 Hem Pathologist Commnt No 04/17/16 12:17 PT 15.9 Sec. (12.2-14.9) H 04/23/16 10:45 INR 1.28 (0.87-1.13) H 04/23/16 10:45 APTT 42.1 Sec. (24.2-36.6) H 04/04/16 09:55 Heparin Anti-Xa Level 0.16 U.I./ml (0.3-0.7) L 05/01/16 05:12 POC ABG pH 7.519 (7.35-7.45) H 04/30/16 04:32 POC ABG pCO2 33.6 (35-45) L 04/30/16 04:32 POC ABG pO2 79 (80-105) L 04/30/16 04:32 POC ABG HCO3 27.4 04/30/16 04:32 POC ABG Total CO2 28 04/30/16 04:32 POC ABG O2 Sat 97 04/30/16 04:32 POC ABG Base Excess 5 04/30/16 04:32 VBG pH 7.418 (7.320-7.420) 03/24/16 14:00 FiO2 25 % 04/30/16 04:32 Sodium 147 mmol/L (137-145) H 05/01/16 04:00 Potassium 3.9 mmol/L (3.6-5.0) 05/01/16 04:00 Chloride 107.8 mmol/L (98-107) H 05/01/16 04:00 Carbon Dioxide 29 mmol/L (22-30) 05/01/16 04:00 Anion Gap 14 mmol/L 05/01/16 04:00 BUN 22 mg/dL (9-20) H 05/01/16 04:00 Creatinine 0.7 mg/dL (0.8-1.5) L 05/01/16 04:00 Estimated GFR > 60 ml/min 05/01/16 04:00 BUN/Creatinine Ratio 31.42 % 05/01/16 04:00 Glucose 229 mg/dL (75-100) H 05/01/16 04:00 POC Glucose 284 (70-105) H 05/01/16 07:41 Hemoglobin A1c 9.6 % (4-6) H 03/24/16 14:00 Lactic Acid 1.6 mmol/L (0.7-2.0) 04/17/16 12:17 Calcium 8.2 mg/dL (8.4-10.2) L 05/01/16 04:00 Phosphorus 2.3 mg/dL (2.5-4.5) L D 03/30/16 04:00 Magnesium 1.9 mg/dL (1.7-2.3) 03/30/16 04:00 Iron 10 ug/dL (49-181) L 04/29/16 10:16 TIBC 138 mcg/dL (250-450) L 04/29/16 10:16 Ferritin 336.4 ng/mL (13.0-400.0) 04/29/16 10:16 Total Bilirubin < 0.2 mg/dL (0.1-1.2) 04/27/16 04:21 AST 18 units/L (5-40) 04/27/16 04:21 ALT 39 units/L (7-56) 04/27/16 04:21 Alkaline Phosphatase 103 units/L (35-129) 04/27/16 04:21 Lactate Dehydrogenase 204 units/L (91-180) H 04/29/16 10:16 Total Creatine Kinase 356 units/L (55-170) H 03/28/16 13:29 Troponin T < 0.010 ng/mL (0.00-0.029) 03/28/16 13:29 NT-Pro-B Natriuret Pep 897.9 pg/mL (0-900) 04/03/16 04:10 Serum Total Protein 7.1 g/dL (6.1-8.1) 03/25/16 13:00 Total Protein 6.0 g/dL (6.3-8.2) L 04/27/16 04:21 Albumin 2.0 g/dL (3.9-5) L 04/27/16 04:21 Albumin/Globulin Ratio 0.5 % 04/27/16 04:21 [id number] See scanned report 03/31/16 12:20 [id number] See scanned report 03/31/16 12:20 Beta Globulins See scanned report 03/31/16 12:20 [id number]-4-[id number] 2.46 mg/L (<=2.51) 03/25/16 13:00 Gamma Globulins See scanned report 03/31/16 12:20 Abnorm Protein Band 1 see below (()) 03/25/16 13:00 PEP Interpretation See scanned report 03/31/16 12:20 Triglycerides 88 mg/dL (2-149) 03/24/16 17:58 Cholesterol 221 mg/dL (50-199) H 03/24/16 17:58 LDL Cholesterol Direct 146 mg/dL (50-130) H 03/24/16 17:58 HDL Cholesterol 58 mg/dL (40-59) 03/24/16 17:58 Cholesterol/HDL Ratio 3.81 % 03/24/16 17:58 Vitamin B12 1005 pg/mL (211-911) H 04/29/16 10:16 Folate 12.78 ng/mL (7.3-26.0) 04/29/16 10:16 Urine Color Yellow (Yellow) 03/24/16 14:27 Urine Turbidity Clear (Clear) 03/24/16 14:27 Urine pH 5.0 (5.0-7.0) 03/24/16 14:27 Ur Specific [place] 1.017 (1.003-1.030) 03/24/16 14:27 Urine Protein <15 mg/dl mg/dL (Negative) 03/24/16 14:27 Urine Glucose (UA) >=500 mg/dL (Negative) 03/24/16 14:27 Urine Ketones Neg mg/dL (Negative) 03/24/16 14:27 Urine Blood Sm (Negative) 03/24/16 14:27 Urine Nitrite Neg (Negative) 03/24/16 14:27 Urine Bilirubin Neg (Negative) 03/24/16 14:27 Urine Urobilinogen < 2.0 mg/dL (<2.0) 03/24/16 14:27 Ur Leukocyte Esterase Neg (Negative) 03/24/16 14:27 Urine WBC (Auto) 2.0 /HPF (0.0-6.0) 03/24/16 14:27 Urine RBC (Auto) < 1.0 /HPF (0.0-6.0) 03/24/16 14:27 U Epithel Cells (Auto) 4.0 /HPF (0-13.0) 03/24/16 14:27 Hyaline Casts 1 /LPF 03/24/16 14:27 Urine Mucus Few /HPF 03/24/16 14:27 Ur Random Creatinine See scanned report 03/31/16 12:20 U Random Total Protein See scanned report 03/31/16 12:20 Urine Creatinine 85.5 mg/dL (0.1-20.0) H 04/20/16 11:50 Protein/Creatinin Ratio See scanned report 03/31/16 12:20 Urine Sodium 17 mEq/L 04/20/16 11:50 U Abnormal Prot Band 1 See scanned report 03/31/16 12:20 U Abnormal Prot Band 2 See scanned report 03/31/16 12:20 U Abnormal Prot Band 3 See scanned report 03/31/16 12:20 Ketones 1.0 mg/dL (0.2-2.8) 03/24/16 14:00 Blood Type A POSITIVE 04/29/16 10:05 Antibody Screen Negative 04/29/16 10:05 Crossmatch See Detail 04/29/16 10:05
[2016-05-01] MEDS: KEPPRA PO SCH ×2 (11:21→23:05)
[2016-05-01] MEDS: BABY ASPIRIN PO SCH (11:22)
[2016-05-01] MEDS: ZESTRIL PO SCH ×2 (11:22→23:05)
[2016-05-01] MEDS: NORVASC PO SCH (11:23)
[2016-05-01] MEDS: CORDARONE PO SCH (11:23)
[2016-05-01] MEDS: PEPCID PO SCH ×2 (11:24→23:05)
[2016-05-01] MEDS: LEVEMIR SUB-Q SCH (12:25)
--- NOTE | 2016-05-01 13:33 | Progress Note ---
Assessment and Plan - Patient Problems (1) Acute renal failure Diagnosis Date: 04/26/16 Current Visit: Yes Status: Acute (2) Acute respiratory failure Diagnosis Date: 04/26/16 Current Visit: Yes Status: Acute (3) Altered mental status Current Visit: Yes Status: Acute Qualifiers: Qualified Code(s): R41.82 - Altered mental status, unspecified (4) CAD (coronary artery disease) Diagnosis Date: 04/26/16 Current Visit: Yes Status: Acute (5) Diabetes Current Visit: Yes Status: Acute (6) Encephalopathy Current Visit: Yes Status: Acute (7) Acute ST elevation myocardial infarction (STEMI) Current Visit: No Status: Acute Qualifiers: Qualified Code(s): I21.02 - ST elevation (STEMI) myocardial infarction involving left anterior descending coronary artery (8) CHF (congestive heart failure), NYHA class III Current Visit: Yes Status: Acute Subjective Principal diagnosis: CVA, acute respiratory failure Interval history: on vent Objective Vital Signs - 12hr 05/01/16 05/01/16 05/01/16 01:39 01:47 01:57 Temperature Pulse Rate 90 Pulse Rate [ 90 95 H Anterior Bilateral Throughout] Respiratory Rate Respiratory 18 18 Rate [Anterior Bilateral Throughout] Blood Pressure 116/60 O2 Sat by Pulse 98 Oximetry 05/01/16 05/01/16 05/01/16 02:00 02:30 02:35 Temperature Pulse Rate 91 H 92 H 92 H Pulse Rate [ Anterior Bilateral Throughout] Respiratory 20 Rate Respiratory Rate [Anterior Bilateral Throughout] Blood Pressure 104/55 111/60 111/60 O2 Sat by Pulse 99 99 98 Oximetry 05/01/16 05/01/16 05/01/16 03:00 03:09 03:17 Temperature Pulse Rate 92 H 93 H 90 Pulse Rate [ Anterior Bilateral Throughout] Respiratory Rate Respiratory Rate [Anterior Bilateral Throughout] Blood Pressure 114/59 114/59 122/63 O2 Sat by Pulse 99 99 99 Oximetry 05/01/16 05/01/16 05/01/16 03:25 03:30 03:35 Temperature Pulse Rate 90 94 H Pulse Rate [ Anterior Bilateral Throughout] Respiratory Rate Respiratory Rate [Anterior Bilateral Throughout] Blood Pressure 122/63 134/68 O2 Sat by Pulse 100 100 99 Oximetry 05/01/16 05/01/16 05/01/16 03:37 04:00 04:30 Temperature Pulse Rate 93 H 91 H 95 H Pulse Rate [ Anterior Bilateral Throughout] Respiratory Rate Respiratory Rate [Anterior Bilateral Throughout] Blood Pressure 134/68 116/59 114/62 O2 Sat by Pulse 99 99 99 Oximetry 05/01/16 05/01/16 05/01/16 05:00 05:21 05:25 Temperature 101.6 F H Pulse Rate 95 H 96 H 95 H Pulse Rate [ Anterior Bilateral Throughout] Respiratory Rate Respiratory Rate [Anterior Bilateral Throughout] Blood Pressure 121/63 103/68 103/68 O2 Sat by Pulse 99 100 100 Oximetry 05/01/16 05/01/16 05/01/16 05:30 06:00 06:30 Temperature Pulse Rate 95 H 95 H 98 H Pulse Rate [ Anterior Bilateral Throughout] Respiratory Rate Respiratory Rate [Anterior Bilateral Throughout] Blood Pressure 119/63 115/62 129/68 O2 Sat by Pulse 100 99 99 Oximetry 05/01/16 05/01/16 05/01/16 06:44 07:00 07:03 Temperature Pulse Rate 95 H 96 H 95 H Pulse Rate [ Anterior Bilateral Throughout] Respiratory 19 Rate Respiratory Rate [Anterior Bilateral Throughout] Blood Pressure 129/68 118/62 118/62 O2 Sat by Pulse 99 99 99 Oximetry 05/01/16 05/01/16 05/01/16 07:30 08:00 08:30 Temperature 100.8 F H Pulse Rate 97 H 97 H 97 H Pulse Rate [ Anterior Bilateral Throughout] Respiratory Rate Respiratory Rate [Anterior Bilateral Throughout] Blood Pressure 126/65 123/63 116/65 O2 Sat by Pulse 99 100 100 Oximetry 05/01/16 05/01/16 05/01/16 08:45 08:55 09:00 Temperature Pulse Rate 98 H 96 H 103 H Pulse Rate [ Anterior Bilateral Throughout] Respiratory Rate Respiratory Rate [Anterior Bilateral Throughout] Blood Pressure 137/78 127/73 133/74 O2 Sat by Pulse 99 99 Oximetry 05/01/16 05/01/16 05/01/16 09:15 09:30 09:32 Temperature Pulse Rate 97 H 99 H 98 H Pulse Rate [ Anterior Bilateral Throughout] Respiratory 20 21 Rate Respiratory Rate [Anterior Bilateral Throughout] Blood Pressure 126/68 127/73 127/73 O2 Sat by Pulse 100 99 100 Oximetry 05/01/16 05/01/16 05/01/16 10:00 10:30 11:00 Temperature Pulse Rate 100 H 100 H 99 H Pulse Rate [ Anterior Bilateral Throughout] Respiratory Rate Respiratory Rate [Anterior Bilateral Throughout] Blood Pressure 132/68 129/68 125/70 O2 Sat by Pulse 100 98 99 Oximetry 05/01/16 05/01/16 05/01/16 11:22 11:23 11:30 Temperature Pulse Rate 95 H 95 H 96 H Pulse Rate [ Anterior Bilateral Throughout] Respiratory Rate Respiratory Rate [Anterior Bilateral Throughout] Blood Pressure 138/66 138/66 124/67 O2 Sat by Pulse 99 Oximetry 05/01/16 05/01/16 12:00 12:30 Temperature 101 F H Pulse Rate 96 H 101 H Pulse Rate [ Anterior Bilateral Throughout] Respiratory Rate Respiratory Rate [Anterior Bilateral Throughout] Blood Pressure 124/68 132/74 O2 Sat by Pulse 99 100 Oximetry Constitutional: no acute distress, lethargic, other (awake but not following commands on vent ac) Eyes: non-icteric ENT: other (tracheotomy) Neck: supple Effort: normal Ascultation: Bilateral: rhonchi (occasional) Percussion: Bilateral: not dull Cardiovascular: regular rate and rhythm Gastrointestinal: normoactive bowel sounds, soft, non-tender Extremities: no cyanosis, no edema Neurologic: other (GCS 4) CBC and BMP: 05/01/16 04:00 05/01/16 04:00 ABG, PT/INR, D-dimer: ABG POC ABG pH 7.519 (7.35-7.45) H 04/30/16 04:32 POC ABG pCO2 33.6 (35-45) L 04/30/16 04:32 POC ABG pO2 79 (80-105) L 04/30/16 04:32 POC ABG HCO3 27.4 04/30/16 04:32 POC ABG Total CO2 28 04/30/16 04:32 POC ABG O2 Sat 97 04/30/16 04:32 PT/INR, D-dimer PT 15.9 Sec. (12.2-14.9) H 04/23/16 10:45 INR 1.28 (0.87-1.13) H 04/23/16 10:45 Abnormal lab findings: Abnormal Labs 03/24/16 03/24/16 03/24/16 17:58 20:25 23:23 WBC RBC Hgb Hct MCV MCH MCHC RDW Plt Count Lymph % (Auto) Hand % (Auto) Lymph # Hand # Baso # Seg Neutrophils % Seg Neuts % (Manual) Lymphocytes % (Manual) Seg Neutrophils # Seg Neutrophils # Man Lymphocytes # (Manual) Monocytes # (Manual) Percent Retic PT INR APTT Heparin Anti-Xa Level POC ABG pH POC ABG pCO2 POC ABG pO2 Sodium 169 H* Potassium 3.5 L Chloride 130.3 H Carbon Dioxide BUN 28 H Creatinine 1.8 H Glucose POC Glucose 112 H Calcium Phosphorus Iron TIBC Lactate Dehydrogenase Total Creatine Kinase NT-Pro-B Natriuret Pep Total Protein Albumin Wzgqe-6-Gczbnendo Oclsh-9-Wzumcahlx Beta Globulins PEP Interpretation Cholesterol 221 H LDL Cholesterol Direct 146 H Vitamin B12 Urine Creatinine Crossmatch 03/25/16 03/25/16 03/25/16 05:56 05:56 05:56 WBC 21.3 H RBC 6.32 H Hgb 16.7 H Hct 52.7 H MCV 83 L MCH 27 L MCHC RDW Plt Count Lymph % (Auto) Hand % (Auto) Lymph # Hand # Baso # Seg Neutrophils % Seg Neuts % (Manual) 91.0 H Lymphocytes % (Manual) 4.0 L Seg Neutrophils # Seg Neutrophils # Man 19.4 H Lymphocytes # (Manual) 0.9 L Monocytes # (Manual) 0.9 H Percent Retic PT INR APTT Heparin Anti-Xa Level POC ABG pH POC ABG pCO2 POC ABG pO2 Sodium 172 H* Potassium 3.5 L Chloride 130.4 H Carbon Dioxide BUN 29 H Creatinine 1.8 H Glucose 187 H POC Glucose Calcium Phosphorus Iron TIBC Lactate Dehydrogenase 460 H Total Creatine Kinase NT-Pro-B Natriuret Pep Total Protein Albumin Ioauj-7-Aorsiagdp Cnolq-6-Ktgbwzqhz Beta Globulins PEP Interpretation Cholesterol LDL Cholesterol Direct Vitamin B12 Urine Creatinine Crossmatch 03/25/16 03/25/16 03/25/16 07:55 12:19 13:00 WBC RBC Hgb Hct MCV MCH MCHC RDW Plt Count Lymph % (Auto) Hand % (Auto) Lymph # Hand # Baso # Seg Neutrophils % Seg Neuts % (Manual) Lymphocytes % (Manual) Seg Neutrophils # Seg Neutrophils # Man Lymphocytes # (Manual) Monocytes # (Manual) Percent Retic PT INR APTT Heparin Anti-Xa Level POC ABG pH POC ABG pCO2 POC ABG pO2 Sodium Potassium Chloride Carbon Dioxide BUN Creatinine Glucose POC Glucose 231 H 314 H Calcium Phosphorus Iron TIBC Lactate Dehydrogenase Total Creatine Kinase NT-Pro-B Natriuret Pep Total Protein Albumin 3.4 L Xqfbo-1-Miluwgjrw 0.4 H Ndajc-2-Wqdoiakde 1.1 H Beta Globulins 0.6 H PEP Interpretation see below H Cholesterol LDL Cholesterol Direct Vitamin B12 Urine Creatinine Crossmatch 03/25/16 03/25/16 03/26/16 16:41 22:45 08:32 WBC RBC Hgb Hct MCV MCH MCHC RDW Plt Count Lymph % (Auto) Hand % (Auto) Lymph # Hand # Baso # Seg Neutrophils % Seg Neuts % (Manual) Lymphocytes % (Manual) Seg Neutrophils # Seg Neutrophils # Man Lymphocytes # (Manual) Monocytes # (Manual) Percent Retic PT INR APTT Heparin Anti-Xa Level POC ABG pH POC ABG pCO2 POC ABG pO2 Sodium Potassium Chloride Carbon Dioxide BUN Creatinine Glucose POC Glucose 444 H 326 H 360 H Calcium Phosphorus Iron TIBC Lactate Dehydrogenase Total Creatine Kinase NT-Pro-B Natriuret Pep Total Protein Albumin Zwahn-7-Smzxazjpb Pzoui-0-Opqbvuajt Beta Globulins PEP Interpretation Cholesterol LDL Cholesterol Direct Vitamin B12 Urine Creatinine Crossmatch 03/26/16 03/26/16 03/26/16 12:38 15:33 15:47 WBC RBC Hgb Hct MCV MCH MCHC RDW Plt Count Lymph % (Auto) Hand % (Auto) Lymph # Hand # Baso # Seg Neutrophils % Seg Neuts % (Manual) Lymphocytes % (Manual) Seg Neutrophils # Seg Neutrophils # Man Lymphocytes # (Manual) Monocytes # (Manual) Percent Retic PT INR APTT Heparin Anti-Xa Level POC ABG pH 7.511 H POC ABG pCO2 26.5 L POC ABG pO2 70 L Sodium Potassium Chloride Carbon Dioxide BUN Creatinine Glucose POC Glucose 280 H 174 H Calcium Phosphorus Iron TIBC Lactate Dehydrogenase Total Creatine Kinase NT-Pro-B Natriuret Pep Total Protein Albumin Eoonu-4-Tyepbajzp Xnrvq-0-Rtskmeyzh Beta Globulins PEP Interpretation Cholesterol LDL Cholesterol Direct Vitamin B12 Urine Creatinine Crossmatch 03/26/16 03/26/16 03/26/16 16:47 16:47 18:51 WBC 14.0 H RBC 5.17 H Hgb Hct MCV MCH 26 L MCHC 31 L RDW Plt Count 139 L Lymph % (Auto) Hand % (Auto) Lymph # Hand # Baso # Seg Neutrophils % Seg Neuts % (Manual) Lymphocytes % (Manual) Seg Neutrophils # Seg Neutrophils # Man Lymphocytes # (Manual) Monocytes # (Manual) Percent Retic PT INR APTT Heparin Anti-Xa Level POC ABG pH POC ABG pCO2 33.9 L POC ABG pO2 150 H Sodium 164 H* Potassium 3.4 L Chloride 128.5 H Carbon Dioxide BUN 30 H Creatinine 2.2 H Glucose 121 H POC Glucose Calcium 8.1 L Phosphorus Iron TIBC Lactate Dehydrogenase Total Creatine Kinase NT-Pro-B Natriuret Pep Total Protein Albumin Uhtxd-5-Wepednsif Lfogq-3-Chllaitnc Beta Globulins PEP Interpretation Cholesterol LDL Cholesterol Direct Vitamin B12 Urine Creatinine Crossmatch 03/27/16 03/27/16 03/27/16 02:19 05:47 06:02 WBC RBC Hgb Hct MCV MCH MCHC RDW Plt Count Lymph % (Auto) Hand % (Auto) Lymph # Hand # Baso # Seg Neutrophils % Seg Neuts % (Manual) Lymphocytes % (Manual) Seg Neutrophils # Seg Neutrophils # Man Lymphocytes # (Manual) Monocytes # (Manual) Percent Retic PT INR APTT Heparin Anti-Xa Level POC ABG pH POC ABG pCO2 27.3 L 30.3 L POC ABG pO2 50 L 112 H Sodium 158 H Potassium Chloride 126.7 H Carbon Dioxide 20 L BUN 25 H Creatinine 1.7 H Glucose POC Glucose Calcium 7.0 L Phosphorus Iron TIBC Lactate Dehydrogenase Total Creatine Kinase NT-Pro-B Natriuret Pep Total Protein Albumin Kzvxh-8-Fzfbyebvq Mhsgt-6-Csmpyovcg Beta Globulins PEP Interpretation Cholesterol LDL Cholesterol Direct Vitamin B12 Urine Creatinine Crossmatch 03/27/16 03/27/16 03/27/16 07:51 09:20 11:45 WBC 14.2 H RBC Hgb Hct MCV 83 L MCH 27 L MCHC RDW Plt Count 113 L Lymph % (Auto) Hand % (Auto) Lymph # Hand # Baso # Seg Neutrophils % Seg Neuts % (Manual) Lymphocytes % (Manual) Seg Neutrophils # Seg Neutrophils # Man Lymphocytes # (Manual) Monocytes # (Manual) Percent Retic PT INR APTT Heparin Anti-Xa Level POC ABG pH POC ABG pCO2 POC ABG pO2 Sodium Potassium Chloride Carbon Dioxide BUN Creatinine Glucose POC Glucose 124 H 241 H Calcium Phosphorus Iron TIBC Lactate Dehydrogenase Total Creatine Kinase NT-Pro-B Natriuret Pep Total Protein Albumin Ipjvw-5-Qfagpbnsu Ukqpg-4-Eksdmoipf Beta Globulins PEP Interpretation Cholesterol LDL Cholesterol Direct Vitamin B12 Urine Creatinine Crossmatch 03/27/16 03/27/16 03/28/16 16:39 22:03 03:29 WBC RBC Hgb Hct MCV MCH MCHC RDW Plt Count Lymph % (Auto) Hand % (Auto) Lymph # Hand # Baso # Seg Neutrophils % Seg Neuts % (Manual) Lymphocytes % (Manual) Seg Neutrophils # Seg Neutrophils # Man Lymphocytes # (Manual) Monocytes # (Manual) Percent Retic PT INR APTT Heparin Anti-Xa Level POC ABG pH POC ABG pCO2 POC ABG pO2 Sodium Potassium Chloride Carbon Dioxide BUN Creatinine Glucose POC Glucose 266 H 167 H 241 H Calcium Phosphorus Iron TIBC Lactate Dehydrogenase Total Creatine Kinase NT-Pro-B Natriuret Pep Total Protein Albumin Qzbup-6-Axrueizbr Ikqjf-2-Hvwpumbxd Beta Globulins PEP Interpretation Cholesterol LDL Cholesterol Direct Vitamin B12 Urine Creatinine Crossmatch 03/28/16 03/28/16 03/28/16 05:00 05:00 05:00 WBC RBC Hgb Hct MCV 83 L MCH 27 L MCHC RDW Plt Count 106 L Lymph % (Auto) Hand % (Auto) 10.1 H Lymph # Hand # 1.0 H Baso # Seg Neutrophils % 75.1 H Seg Neuts % (Manual) Lymphocytes % (Manual) Seg Neutrophils # Seg Neutrophils # Man Lymphocytes # (Manual) Monocytes # (Manual) Percent Retic PT INR APTT Heparin Anti-Xa Level POC ABG pH POC ABG pCO2 POC ABG pO2 Sodium 147 H D Potassium 3.1 L D Chloride 112.3 H Carbon Dioxide 21 L BUN Creatinine Glucose 208 H POC Glucose Calcium 7.0 L Phosphorus 2.2 L Iron TIBC Lactate Dehydrogenase Total Creatine Kinase NT-Pro-B Natriuret Pep Total Protein Albumin Ybxyx-5-Dehwtokqx Vkyqh-8-Eyzsuveoi Beta Globulins PEP Interpretation Cholesterol LDL Cholesterol Direct Vitamin B12 Urine Creatinine Crossmatch 03/28/16 03/28/16 03/28/16 05:14 08:41 10:56 WBC RBC Hgb Hct MCV MCH MCHC RDW Plt Count Lymph % (Auto) Hand % (Auto) Lymph # Hand # Baso # Seg Neutrophils % Seg Neuts % (Manual) Lymphocytes % (Manual) Seg Neutrophils # Seg Neutrophils # Man Lymphocytes # (Manual) Monocytes # (Manual) Percent Retic PT INR APTT Heparin Anti-Xa Level POC ABG pH 7.457 H POC ABG pCO2 29.7 L 27.7 L POC ABG pO2 Sodium Potassium Chloride Carbon Dioxide BUN Creatinine Glucose POC Glucose 228 H Calcium Phosphorus Iron TIBC Lactate Dehydrogenase Total Creatine Kinase NT-Pro-B Natriuret Pep Total Protein Albumin Exepw-1-Vhimhvrhc Qcnaj-4-Estcbygmf Beta Globulins PEP Interpretation Cholesterol LDL Cholesterol Direct Vitamin B12 Urine Creatinine Crossmatch 03/28/16 03/28/16 03/28/16 11:37 13:29 16:22 WBC RBC Hgb Hct MCV MCH MCHC RDW Plt Count Lymph % (Auto) Hand % (Auto) Lymph # Hand # Baso # Seg Neutrophils % Seg Neuts % (Manual) Lymphocytes % (Manual) Seg Neutrophils # Seg Neutrophils # Man Lymphocytes # (Manual) Monocytes # (Manual) Percent Retic PT INR APTT Heparin Anti-Xa Level POC ABG pH POC ABG pCO2 POC ABG pO2 Sodium Potassium Chloride Carbon Dioxide BUN Creatinine Glucose POC Glucose 226 H 200 H Calcium Phosphorus Iron TIBC Lactate Dehydrogenase Total Creatine Kinase 356 H NT-Pro-B Natriuret Pep Total Protein Albumin Mueps-5-Iaslorrer Aswhv-4-Frwqizoid Beta Globulins PEP Interpretation Cholesterol LDL Cholesterol Direct Vitamin B12 Urine Creatinine Crossmatch 03/28/16 03/29/16 03/29/16 21:48 04:50 04:50 WBC RBC Hgb 11.5 L Hct 35.3 L MCV 81 L MCH 26 L MCHC RDW Plt Count 97 L Lymph % (Auto) Hand % (Auto) 11.7 H Lymph # Hand # 1.1 H Baso # Seg Neutrophils % Seg Neuts % (Manual) Lymphocytes % (Manual) Seg Neutrophils # Seg Neutrophils # Man Lymphocytes # (Manual) Monocytes # (Manual) Percent Retic PT INR APTT Heparin Anti-Xa Level POC ABG pH POC ABG pCO2 POC ABG pO2 Sodium 136 L D Potassium 3.3 L Chloride Carbon Dioxide 20 L BUN Creatinine Glucose 386 H POC Glucose 188 H Calcium 6.8 L Phosphorus 1.6 L D Iron TIBC Lactate Dehydrogenase Total Creatine Kinase NT-Pro-B Natriuret Pep Total Protein Albumin Temwq-3-Fyrecjxzi Lcxhw-2-Pyrzcywoj Beta Globulins PEP Interpretation Cholesterol LDL Cholesterol Direct Vitamin B12 Urine Creatinine Crossmatch 03/29/16 03/29/16 03/29/16 08:10 11:12 16:09 WBC RBC Hgb Hct MCV MCH MCHC RDW Plt Count Lymph % (Auto) Hand % (Auto) Lymph # Hand # Baso # Seg Neutrophils % Seg Neuts % (Manual) Lymphocytes % (Manual) Seg Neutrophils # Seg Neutrophils # Man Lymphocytes # (Manual) Monocytes # (Manual) Percent Retic PT INR APTT Heparin Anti-Xa Level POC ABG pH POC ABG pCO2 POC ABG pO2 Sodium Potassium Chloride Carbon Dioxide BUN Creatinine Glucose POC Glucose 230 H 180 H 46 L Calcium Phosphorus Iron TIBC Lactate Dehydrogenase Total Creatine Kinase NT-Pro-B Natriuret Pep Total Protein Albumin Pjmuf-1-Ccfqjhauw Mvnoi-1-Shbwwkpca Beta Globulins PEP Interpretation Cholesterol LDL Cholesterol Direct Vitamin B12 Urine Creatinine Crossmatch 03/29/16 03/29/16 03/30/16 16:12 18:15 02:53 WBC RBC Hgb Hct MCV MCH MCHC RDW Plt Count Lymph % (Auto) Hand % (Auto) Lymph # Hand # Baso # Seg Neutrophils % Seg Neuts % (Manual) Lymphocytes % (Manual) Seg Neutrophils # Seg Neutrophils # Man Lymphocytes # (Manual) Monocytes # (Manual) Percent Retic PT INR APTT Heparin Anti-Xa Level POC ABG pH POC ABG pCO2 POC ABG pO2 Sodium Potassium Chloride Carbon Dioxide BUN Creatinine Glucose POC Glucose 52 L 118 H 130 H Calcium Phosphorus Iron TIBC Lactate Dehydrogenase Total Creatine Kinase NT-Pro-B Natriuret Pep Total Protein Albumin Ddlll-2-Fiowjjgxc Swfga-1-Wpmmsgocv Beta Globulins PEP Interpretation Cholesterol LDL Cholesterol Direct Vitamin B12 Urine Creatinine Crossmatch 03/30/16 03/30/16 03/30/16 04:00 04:00 05:29 WBC RBC Hgb Hct MCV 81 L MCH 26 L MCHC RDW Plt Count 116 L Lymph % (Auto) 10.8 L Hand % (Auto) 13.1 H Lymph # 1.0 L Hand # 1.3 H Baso # Seg Neutrophils % 74.2 H Seg Neuts % (Manual) Lymphocytes % (Manual) Seg Neutrophils # Seg Neutrophils # Man Lymphocytes # (Manual) Monocytes # (Manual) Percent Retic PT INR APTT Heparin Anti-Xa Level POC ABG pH 7.522 H POC ABG pCO2 22.7 L POC ABG pO2 137 H Sodium 147 H D Potassium Chloride 115.5 H Carbon Dioxide 20 L BUN Creatinine Glucose 116 H POC Glucose Calcium 7.6 L Phosphorus 2.3 L D Iron TIBC Lactate Dehydrogenase Total Creatine Kinase NT-Pro-B Natriuret Pep Total Protein Albumin Zhrmo-5-Dafbnuisv Schgq-3-Agxoekahu Beta Globulins PEP Interpretation Cholesterol LDL Cholesterol Direct Vitamin B12 Urine Creatinine Crossmatch 03/30/16 03/30/16 03/30/16 05:47 08:05 08:59 WBC RBC Hgb Hct MCV MCH MCHC RDW Plt Count Lymph % (Auto) Hand % (Auto) Lymph # Hand # Baso # Seg Neutrophils % Seg Neuts % (Manual) Lymphocytes % (Manual) Seg Neutrophils # Seg Neutrophils # Man Lymphocytes # (Manual) Monocytes # (Manual) Percent Retic PT INR APTT Heparin Anti-Xa Level POC ABG pH POC ABG pCO2 26.2 L POC ABG pO2 115 H Sodium Potassium Chloride Carbon Dioxide BUN Creatinine Glucose POC Glucose 138 H 171 H Calcium Phosphorus Iron TIBC Lactate Dehydrogenase Total Creatine Kinase NT-Pro-B Natriuret Pep Total Protein Albumin Sfyhj-5-Dgwcopzsq Rwhuf-5-Ppvyweumn Beta Globulins PEP Interpretation Cholesterol LDL Cholesterol Direct Vitamin B12 Urine Creatinine Crossmatch 03/30/16 03/30/16 03/30/16 12:11 12:11 16:39 WBC RBC Hgb Hct MCV MCH MCHC RDW Plt Count Lymph % (Auto) Hand % (Auto) Lymph # Hand # Baso # Seg Neutrophils % Seg Neuts % (Manual) Lymphocytes % (Manual) Seg Neutrophils # Seg Neutrophils # Man Lymphocytes # (Manual) Monocytes # (Manual) Percent Retic PT INR APTT Heparin Anti-Xa Level POC ABG pH 7.476 H POC ABG pCO2 29.0 L POC ABG pO2 Sodium Potassium Chloride Carbon Dioxide BUN Creatinine Glucose POC Glucose 142 H 59 L Calcium Phosphorus Iron TIBC Lactate Dehydrogenase Total Creatine Kinase NT-Pro-B Natriuret Pep Total Protein Albumin Vvott-1-Zwhnsjztc Iiqvz-1-Jsidwvyjm Beta Globulins PEP Interpretation Cholesterol LDL Cholesterol Direct Vitamin B12 Urine Creatinine Crossmatch 03/30/16 03/30/16 03/31/16 18:41 21:59 05:02 WBC RBC Hgb Hct MCV MCH MCHC RDW Plt Count Lymph % (Auto) Hand % (Auto) Lymph # Hand # Baso # Seg Neutrophils % Seg Neuts % (Manual) Lymphocytes % (Manual) Seg Neutrophils # Seg Neutrophils # Man Lymphocytes # (Manual) Monocytes # (Manual) Percent Retic PT INR APTT Heparin Anti-Xa Level POC ABG pH 7.519 H POC ABG pCO2 21.8 L POC ABG pO2 142 H Sodium Potassium Chloride Carbon Dioxide BUN Creatinine Glucose POC Glucose 145 H 154 H Calcium Phosphorus Iron TIBC Lactate Dehydrogenase Total Creatine Kinase NT-Pro-B Natriuret Pep Total Protein Albumin Rsclo-6-Ffbfhuqdo Ozizh-5-Ehuuiydwz Beta Globulins PEP Interpretation Cholesterol LDL Cholesterol Direct Vitamin B12 Urine Creatinine Crossmatch 03/31/16 03/31/16 03/31/16 05:15 05:15 05:15 WBC 13.4 H RBC 5.21 H Hgb Hct MCV 81 L MCH 26 L MCHC RDW Plt Count Lymph % (Auto) 9.5 L Hand % (Auto) 14.0 H Lymph # Hand # 1.9 H Baso # Seg Neutrophils % 75.0 H Seg Neuts % (Manual) Lymphocytes % (Manual) Seg Neutrophils # 10.1 H Seg Neutrophils # Man Lymphocytes # (Manual) Monocytes # (Manual) Percent Retic PT INR APTT Heparin Anti-Xa Level POC ABG pH POC ABG pCO2 POC ABG pO2 Sodium Potassium Chloride 108.5 H Carbon Dioxide 19 L BUN Creatinine Glucose 188 H POC Glucose Calcium Phosphorus Iron TIBC Lactate Dehydrogenase Total Creatine Kinase NT-Pro-B Natriuret Pep 1089 H Total Protein Albumin Ueurr-1-Lhyaxrnjx Octfn-8-Peoaxdkrd Beta Globulins PEP Interpretation Cholesterol LDL Cholesterol Direct Vitamin B12 Urine Creatinine Crossmatch 03/31/16 03/31/16 03/31/16 07:23 11:12 15:20 WBC RBC Hgb Hct MCV MCH MCHC RDW Plt Count Lymph % (Auto) Hand % (Auto) Lymph # Hand # Baso # Seg Neutrophils % Seg Neuts % (Manual) Lymphocytes % (Manual) Seg Neutrophils # Seg Neutrophils # Man Lymphocytes # (Manual) Monocytes # (Manual) Percent Retic PT INR APTT Heparin Anti-Xa Level POC ABG pH POC ABG pCO2 POC ABG pO2 Sodium Potassium Chloride Carbon Dioxide BUN Creatinine Glucose POC Glucose 233 H 228 H 208 H Calcium Phosphorus Iron TIBC Lactate Dehydrogenase Total Creatine Kinase NT-Pro-B Natriuret Pep Total Protein Albumin Mfszw-2-Zxhemsuth Cdmal-5-Kdujfjsat Beta Globulins PEP Interpretation Cholesterol LDL Cholesterol Direct Vitamin B12 Urine Creatinine Crossmatch 03/31/16 04/01/16 04/01/16 21:27 04:41 05:35 WBC 12.1 H RBC Hgb Hct MCV 81 L MCH 26 L MCHC RDW Plt Count Lymph % (Auto) 8.5 L Hand % (Auto) 14.0 H Lymph # 1.0 L Hand # 1.7 H Baso # Seg Neutrophils % 76.2 H Seg Neuts % (Manual) Lymphocytes % (Manual) Seg Neutrophils # 9.2 H Seg Neutrophils # Man Lymphocytes # (Manual) Monocytes # (Manual) Percent Retic PT INR APTT Heparin Anti-Xa Level POC ABG pH 7.455 H POC ABG pCO2 31.0 L POC ABG pO2 Sodium Potassium Chloride Carbon Dioxide BUN Creatinine Glucose POC Glucose 162 H Calcium Phosphorus Iron TIBC Lactate Dehydrogenase Total Creatine Kinase NT-Pro-B Natriuret Pep Total Protein Albumin Lmhyu-9-Iigaouslb Gxojf-6-Rjlghiivz Beta Globulins PEP Interpretation Cholesterol LDL Cholesterol Direct Vitamin B12 Urine Creatinine Crossmatch 04/01/16 04/01/16 04/01/16 05:35 08:44 12:49 WBC RBC Hgb Hct MCV MCH MCHC RDW Plt Count Lymph % (Auto) Hand % (Auto) Lymph # Hand # Baso # Seg Neutrophils % Seg Neuts % (Manual) Lymphocytes % (Manual) Seg Neutrophils # Seg Neutrophils # Man Lymphocytes # (Manual) Monocytes # (Manual) Percent Retic PT INR APTT Heparin Anti-Xa Level POC ABG pH POC ABG pCO2 POC ABG pO2 Sodium Potassium Chloride Carbon Dioxide BUN Creatinine Glucose 256 H POC Glucose 257 H 279 H Calcium 8.0 L Phosphorus Iron TIBC Lactate Dehydrogenase Total Creatine Kinase NT-Pro-B Natriuret Pep 1205 H Total Protein Albumin Amdgh-1-Feuezufxa Jgofq-7-Wgqphkusp Beta Globulins PEP Interpretation Cholesterol LDL Cholesterol Direct Vitamin B12 Urine Creatinine Crossmatch 04/01/16 04/02/16 04/02/16 18:12 00:42 04:17 WBC RBC Hgb Hct MCV MCH MCHC RDW Plt Count Lymph % (Auto) Hand % (Auto) Lymph # Hand # Baso # Seg Neutrophils % Seg Neuts % (Manual) Lymphocytes % (Manual) Seg Neutrophils # Seg Neutrophils # Man Lymphocytes # (Manual) Monocytes # (Manual) Percent Retic PT INR APTT Heparin Anti-Xa Level POC ABG pH 7.582 H POC ABG pCO2 26.8 L POC ABG pO2 Sodium Potassium Chloride Carbon Dioxide BUN Creatinine Glucose POC Glucose 168 H 282 H Calcium Phosphorus Iron TIBC Lactate Dehydrogenase Total Creatine Kinase NT-Pro-B Natriuret Pep Total Protein Albumin Dgiac-5-Grgjyxovf Ovcyb-3-Gyixajxam Beta Globulins PEP Interpretation Cholesterol LDL Cholesterol Direct Vitamin B12 Urine Creatinine Crossmatch 04/02/16 04/02/16 04/02/16 05:00 05:00 06:27 WBC 12.4 H RBC Hgb Hct MCV 81 L MCH 26 L MCHC RDW Plt Count Lymph % (Auto) 6.4 L Hand % (Auto) 13.3 H Lymph # 0.8 L Hand # 1.7 H Baso # Seg Neutrophils % 79.4 H Seg Neuts % (Manual) Lymphocytes % (Manual) Seg Neutrophils # 9.9 H Seg Neutrophils # Man Lymphocytes # (Manual) Monocytes # (Manual) Percent Retic PT INR APTT Heparin Anti-Xa Level POC ABG pH POC ABG pCO2 POC ABG pO2 Sodium 146 H Potassium Chloride Carbon Dioxide BUN Creatinine Glucose 334 H POC Glucose 317 H Calcium 8.0 L Phosphorus Iron TIBC Lactate Dehydrogenase Total Creatine Kinase NT-Pro-B Natriuret Pep Total Protein Albumin Gcyuj-0-Nxztjsffy Xylfn-4-Muhidwjny Beta Globulins PEP Interpretation Cholesterol LDL Cholesterol Direct Vitamin B12 Urine Creatinine Crossmatch 04/02/16 04/02/16 04/02/16 11:51 13:10 17:24 WBC RBC Hgb Hct MCV MCH MCHC RDW Plt Count Lymph % (Auto) Hand % (Auto) Lymph # Hand # Baso # Seg Neutrophils % Seg Neuts % (Manual) Lymphocytes % (Manual) Seg Neutrophils # Seg Neutrophils # Man Lymphocytes # (Manual) Monocytes # (Manual) Percent Retic PT INR APTT Heparin Anti-Xa Level POC ABG pH 7.518 H POC ABG pCO2 POC ABG pO2 Sodium Potassium Chloride Carbon Dioxide BUN Creatinine Glucose POC Glucose 278 H 195 H Calcium Phosphorus Iron TIBC Lactate Dehydrogenase Total Creatine Kinase NT-Pro-B Natriuret Pep Total Protein Albumin Xjixv-4-Qavgowfjw Kdbbj-8-Iijloweid Beta Globulins PEP Interpretation Cholesterol LDL Cholesterol Direct Vitamin B12 Urine Creatinine Crossmatch 04/03/16 04/03/16 04/03/16 00:18 04:10 04:10 WBC 14.3 H RBC Hgb Hct MCV 81 L MCH 26 L MCHC RDW Plt Count Lymph % (Auto) 9.0 L Hand % (Auto) 10.7 H Lymph # Hand # 1.5 H Baso # 0.2 H Seg Neutrophils % 78.5 H Seg Neuts % (Manual) Lymphocytes % (Manual) Seg Neutrophils # 11.3 H Seg Neutrophils # Man Lymphocytes # (Manual) Monocytes # (Manual) Percent Retic PT INR APTT Heparin Anti-Xa Level POC ABG pH POC ABG pCO2 POC ABG pO2 Sodium 148 H Potassium Chloride 108.1 H Carbon Dioxide BUN 21 H Creatinine Glucose 227 H POC Glucose 144 H Calcium 8.2 L Phosphorus Iron TIBC Lactate Dehydrogenase Total Creatine Kinase NT-Pro-B Natriuret Pep Total Protein Albumin Awzca-9-Pkqhbdofn Dxmwg-7-Ifcaqvekn Beta Globulins PEP Interpretation Cholesterol LDL Cholesterol Direct Vitamin B12 Urine Creatinine Crossmatch 04/03/16 04/03/16 04/04/16 11:14 17:10 04:00 WBC 14.5 H RBC Hgb Hct MCV 81 L MCH 26 L MCHC RDW Plt Count Lymph % (Auto) 7.2 L Hand % (Auto) 7.6 H Lymph # 1.0 L Hand # 1.1 H Baso # Seg Neutrophils % 84.5 H Seg Neuts % (Manual) Lymphocytes % (Manual) Seg Neutrophils # 12.3 H Seg Neutrophils # Man Lymphocytes # (Manual) Monocytes # (Manual) Percent Retic PT INR APTT Heparin Anti-Xa Level POC ABG pH POC ABG pCO2 POC ABG pO2 Sodium Potassium Chloride Carbon Dioxide BUN Creatinine Glucose POC Glucose 267 H 212 H Calcium Phosphorus Iron TIBC Lactate Dehydrogenase Total Creatine Kinase NT-Pro-B Natriuret Pep Total Protein Albumin Yakfh-4-Ejaqrvuyy Erubr-2-Hkdsuilau Beta Globulins PEP Interpretation Cholesterol LDL Cholesterol Direct Vitamin B12 Urine Creatinine Crossmatch 04/04/16 04/04/16 04/04/16 05:00 09:55 09:55 WBC RBC Hgb 11.5 L Hct MCV MCH MCHC RDW Plt Count Lymph % (Auto) Hand % (Auto) Lymph # Hand # Baso # Seg Neutrophils % Seg Neuts % (Manual) Lymphocytes % (Manual) Seg Neutrophils # Seg Neutrophils # Man Lymphocytes # (Manual) Monocytes # (Manual) Percent Retic PT INR APTT 42.1 H Heparin Anti-Xa Level POC ABG pH POC ABG pCO2 POC ABG pO2 Sodium 146 H Potassium Chloride Carbon Dioxide BUN 22 H Creatinine Glucose 128 H POC Glucose Calcium Phosphorus Iron TIBC Lactate Dehydrogenase Total Creatine Kinase NT-Pro-B Natriuret Pep Total Protein Albumin Dzura-5-Mrguxiaez Jgbhf-5-Lkysxsypg Beta Globulins PEP Interpretation Cholesterol LDL Cholesterol Direct Vitamin B12 Urine Creatinine Crossmatch 04/04/16 04/04/16 04/04/16 11:45 17:49 17:55 WBC RBC Hgb Hct MCV MCH MCHC RDW Plt Count Lymph % (Auto) Hand % (Auto) Lymph # Hand # Baso # Seg Neutrophils % Seg Neuts % (Manual) Lymphocytes % (Manual) Seg Neutrophils # Seg Neutrophils # Man Lymphocytes # (Manual) Monocytes # (Manual) Percent Retic PT INR APTT Heparin Anti-Xa Level 1.19 H POC ABG pH POC ABG pCO2 POC ABG pO2 Sodium Potassium Chloride Carbon Dioxide BUN Creatinine Glucose POC Glucose 231 H 186 H Calcium Phosphorus Iron TIBC Lactate Dehydrogenase Total Creatine Kinase NT-Pro-B Natriuret Pep Total Protein Albumin Ijoba-1-Gkqgfekpx Otqxm-1-Nhqyhayei Beta Globulins PEP Interpretation Cholesterol LDL Cholesterol Direct Vitamin B12 Urine Creatinine Crossmatch 04/05/16 04/05/16 04/05/16 00:35 05:32 05:42 WBC RBC Hgb Hct MCV MCH MCHC RDW Plt Count Lymph % (Auto) Hand % (Auto) Lymph # Hand # Baso # Seg Neutrophils % Seg Neuts % (Manual) Lymphocytes % (Manual) Seg Neutrophils # Seg Neutrophils # Man Lymphocytes # (Manual) Monocytes # (Manual) Percent Retic PT INR APTT Heparin Anti-Xa Level POC ABG pH 7.491 H POC ABG pCO2 POC ABG pO2 Sodium Potassium Chloride Carbon Dioxide BUN Creatinine Glucose POC Glucose 192 H 242 H Calcium Phosphorus Iron TIBC Lactate Dehydrogenase Total Creatine Kinase NT-Pro-B Natriuret Pep Total Protein Albumin Cmyfr-2-Wozrhkqbs Qkpbg-5-Vsqsrdgte Beta Globulins PEP Interpretation Cholesterol LDL Cholesterol Direct Vitamin B12 Urine Creatinine Crossmatch 04/05/16 04/05/16 04/05/16 06:20 06:20 12:19 WBC 13.9 H RBC Hgb 11.6 L Hct MCV 81 L MCH 26 L MCHC RDW Plt Count Lymph % (Auto) 9.6 L Hand % (Auto) 8.7 H Lymph # Hand # 1.2 H Baso # Seg Neutrophils % 80.9 H Seg Neuts % (Manual) Lymphocytes % (Manual) Seg Neutrophils # 11.3 H Seg Neutrophils # Man Lymphocytes # (Manual) Monocytes # (Manual) Percent Retic PT INR APTT Heparin Anti-Xa Level POC ABG pH POC ABG pCO2 POC ABG pO2 Sodium 148 H Potassium Chloride Carbon Dioxide BUN 23 H Creatinine Glucose 242 H POC Glucose 187 H Calcium Phosphorus Iron TIBC Lactate Dehydrogenase Total Creatine Kinase NT-Pro-B Natriuret Pep Total Protein Albumin Umtyj-9-Rvnfnkajl Emuha-9-Fyjetduso Beta Globulins PEP Interpretation Cholesterol LDL Cholesterol Direct Vitamin B12 Urine Creatinine Crossmatch 04/05/16 04/05/16 04/06/16 17:10 23:45 05:23 WBC 13.0 H RBC Hgb Hct MCV 82 L MCH 26 L MCHC 31 L RDW Plt Count Lymph % (Auto) 6.7 L Hand % (Auto) 8.3 H Lymph # 0.9 L Hand # 1.1 H Baso # Seg Neutrophils % 84.6 H Seg Neuts % (Manual) Lymphocytes % (Manual) Seg Neutrophils # 11.0 H Seg Neutrophils # Man Lymphocytes # (Manual) Monocytes # (Manual) Percent Retic PT INR APTT Heparin Anti-Xa Level POC ABG pH POC ABG pCO2 POC ABG pO2 Sodium Potassium Chloride Carbon Dioxide BUN Creatinine Glucose POC Glucose 169 H 202 H Calcium Phosphorus Iron TIBC Lactate Dehydrogenase Total Creatine Kinase NT-Pro-B Natriuret Pep Total Protein Albumin Pskhj-3-Ojyehuzos Bngyd-4-Ylvvuahkw Beta Globulins PEP Interpretation Cholesterol LDL Cholesterol Direct Vitamin B12 Urine Creatinine Crossmatch 04/06/16 04/06/16 04/06/16 05:23 05:23 06:11 WBC RBC Hgb Hct MCV MCH MCHC RDW Plt Count Lymph % (Auto) Hand % (Auto) Lymph # Hand # Baso # Seg Neutrophils % Seg Neuts % (Manual) Lymphocytes % (Manual) Seg Neutrophils # Seg Neutrophils # Man Lymphocytes # (Manual) Monocytes # (Manual) Percent Retic PT INR APTT Heparin Anti-Xa Level 0.21 L POC ABG pH POC ABG pCO2 POC ABG pO2 Sodium 153 H Potassium Chloride 111.3 H Carbon Dioxide BUN 22 H Creatinine Glucose 62 L POC Glucose 56 L Calcium Phosphorus Iron TIBC Lactate Dehydrogenase Total Creatine Kinase NT-Pro-B Natriuret Pep Total Protein Albumin Qyxcf-6-Tphbvygwo Gcrxz-2-Kmmddsjak Beta Globulins PEP Interpretation Cholesterol LDL Cholesterol Direct Vitamin B12 Urine Creatinine Crossmatch 04/06/16 04/06/16 04/06/16 06:52 11:36 14:58 WBC RBC Hgb Hct MCV MCH MCHC RDW Plt Count Lymph % (Auto) Hand % (Auto) Lymph # Hand # Baso # Seg Neutrophils % Seg Neuts % (Manual) Lymphocytes % (Manual) Seg Neutrophils # Seg Neutrophils # Man Lymphocytes # (Manual) Monocytes # (Manual) Percent Retic PT INR APTT Heparin Anti-Xa Level POC ABG pH POC ABG pCO2 POC ABG pO2 Sodium Potassium Chloride Carbon Dioxide BUN Creatinine Glucose POC Glucose 206 H 139 H 147 H Calcium Phosphorus Iron TIBC Lactate Dehydrogenase Total Creatine Kinase NT-Pro-B Natriuret Pep Total Protein Albumin Mlclb-5-Ruddicnqs Brvpc-9-Kacgjzxif Beta Globulins PEP Interpretation Cholesterol LDL Cholesterol Direct Vitamin B12 Urine Creatinine Crossmatch 04/06/16 04/06/16 04/06/16 16:03 21:18 23:53 WBC RBC Hgb Hct MCV MCH MCHC RDW Plt Count Lymph % (Auto) Hand % (Auto) Lymph # Hand # Baso # Seg Neutrophils % Seg Neuts % (Manual) Lymphocytes % (Manual) Seg Neutrophils # Seg Neutrophils # Man Lymphocytes # (Manual) Monocytes # (Manual) Percent Retic PT INR APTT Heparin Anti-Xa Level POC ABG pH POC ABG pCO2 POC ABG pO2 Sodium Potassium Chloride Carbon Dioxide BUN Creatinine Glucose POC Glucose 154 H 293 H 301 H Calcium Phosphorus Iron TIBC Lactate Dehydrogenase Total Creatine Kinase NT-Pro-B Natriuret Pep Total Protein Albumin Srydo-1-Mfiqblasq Rrrey-9-Vjyencxmn Beta Globulins PEP Interpretation Cholesterol LDL Cholesterol Direct Vitamin B12 Urine Creatinine Crossmatch 04/07/16 04/07/16 04/07/16 02:30 05:11 05:11 WBC 12.5 H RBC Hgb 11.5 L Hct MCV 82 L MCH 26 L MCHC 31 L RDW Plt Count Lymph % (Auto) Hand % (Auto) Lymph # Hand # Baso # Seg Neutrophils % Seg Neuts % (Manual) Lymphocytes % (Manual) Seg Neutrophils # Seg Neutrophils # Man Lymphocytes # (Manual) Monocytes # (Manual) Percent Retic PT INR APTT Heparin Anti-Xa Level 0.11 L POC ABG pH POC ABG pCO2 POC ABG pO2 Sodium 150 H Potassium Chloride 109.5 H Carbon Dioxide BUN 28 H Creatinine Glucose 264 H POC Glucose Calcium Phosphorus Iron TIBC Lactate Dehydrogenase Total Creatine Kinase NT-Pro-B Natriuret Pep Total Protein Albumin [place]-3-Tujtqmubr Ensas-3-Ufgbpjbsy Beta Globulins PEP Interpretation Cholesterol LDL Cholesterol Direct Vitamin B12 Urine Creatinine Crossmatch 04/07/16 04/07/16 04/07/16 06:46 10:18 11:50 WBC RBC Hgb Hct MCV MCH MCHC RDW Plt Count Lymph % (Auto) Hand % (Auto) Lymph # Hand # Baso # Seg Neutrophils % Seg Neuts % (Manual) Lymphocytes % (Manual) Seg Neutrophils # Seg Neutrophils # Man Lymphocytes # (Manual) Monocytes # (Manual) Percent Retic PT 15.1 H INR 1.20 H APTT Heparin Anti-Xa Level POC ABG pH POC ABG pCO2 POC ABG pO2 Sodium Potassium Chloride Carbon Dioxide BUN Creatinine Glucose POC Glucose 259 H 288 H Calcium Phosphorus Iron TIBC Lactate Dehydrogenase Total Creatine Kinase NT-Pro-B Natriuret Pep Total Protein Albumin Hppqx-0-Nmpgxawxn Esexk-5-Zqpabqdye Beta Globulins PEP Interpretation Cholesterol LDL Cholesterol Direct Vitamin B12 Urine Creatinine Crossmatch 04/07/16 04/08/16 04/08/16 17:58 01:25 06:49 WBC RBC Hgb Hct MCV MCH MCHC RDW Plt Count Lymph % (Auto) Hand % (Auto) Lymph # Hand # Baso # Seg Neutrophils % Seg Neuts % (Manual) Lymphocytes % (Manual) Seg Neutrophils # Seg Neutrophils # Man Lymphocytes # (Manual) Monocytes # (Manual) Percent Retic PT INR APTT Heparin Anti-Xa Level POC ABG pH POC ABG pCO2 POC ABG pO2 Sodium 156 H Potassium Chloride 114.7 H Carbon Dioxide BUN 33 H Creatinine Glucose 169 H POC Glucose 330 H 146 H Calcium Phosphorus Iron TIBC Lactate Dehydrogenase Total Creatine Kinase NT-Pro-B Natriuret Pep Total Protein Albumin Nugbn-5-Rouhojjnc Vowli-0-Czzxwzrhf Beta Globulins PEP Interpretation Cholesterol LDL Cholesterol Direct Vitamin B12 Urine Creatinine Crossmatch 04/08/16 04/08/16 04/08/16 07:34 10:28 10:28 WBC RBC Hgb Hct MCV MCH MCHC RDW Plt Count Lymph % (Auto) Hand % (Auto) Lymph # Hand # Baso # Seg Neutrophils % Seg Neuts % (Manual) Lymphocytes % (Manual) Seg Neutrophils # Seg Neutrophils # Man Lymphocytes # (Manual) Monocytes # (Manual) Percent Retic PT 15.5 H INR 1.24 H APTT Heparin Anti-Xa Level 0.24 L POC ABG pH POC ABG pCO2 POC ABG pO2 Sodium Potassium Chloride Carbon Dioxide BUN Creatinine Glucose POC Glucose 232 H Calcium Phosphorus Iron TIBC Lactate Dehydrogenase Total Creatine Kinase NT-Pro-B Natriuret Pep Total Protein Albumin Vyddy-0-Lriafldhc Ajkzv-4-Lllyetghi Beta Globulins PEP Interpretation Cholesterol LDL Cholesterol Direct Vitamin B12 Urine Creatinine Crossmatch 04/08/16 04/08/16 04/09/16 11:36 15:38 00:01 WBC RBC Hgb Hct MCV MCH MCHC RDW Plt Count Lymph % (Auto) Hand % (Auto) Lymph # Hand # Baso # Seg Neutrophils % Seg Neuts % (Manual) Lymphocytes % (Manual) Seg Neutrophils # Seg Neutrophils # Man Lymphocytes # (Manual) Monocytes # (Manual) Percent Retic PT INR APTT Heparin Anti-Xa Level POC ABG pH POC ABG pCO2 POC ABG pO2 Sodium Potassium Chloride Carbon Dioxide BUN Creatinine Glucose POC Glucose 193 H 163 H 180 H Calcium Phosphorus Iron TIBC Lactate Dehydrogenase Total Creatine Kinase NT-Pro-B Natriuret Pep Total Protein Albumin Ivwfj-4-Mqdnpmllx Gpckw-6-Udytkslvl Beta Globulins PEP Interpretation Cholesterol LDL Cholesterol Direct Vitamin B12 Urine Creatinine Crossmatch 04/09/16 04/09/16 04/09/16 06:17 06:42 06:42 WBC RBC Hgb Hct MCV MCH MCHC RDW Plt Count Lymph % (Auto) Hand % (Auto) Lymph # Hand # Baso # Seg Neutrophils % Seg Neuts % (Manual) Lymphocytes % (Manual) Seg Neutrophils # Seg Neutrophils # Man Lymphocytes # (Manual) Monocytes # (Manual) Percent Retic PT 17.4 H INR 1.43 H APTT Heparin Anti-Xa Level POC ABG pH POC ABG pCO2 POC ABG pO2 Sodium 153 H Potassium Chloride 113.2 H Carbon Dioxide BUN 29 H Creatinine Glucose 301 H POC Glucose 249 H Calcium 8.3 L Phosphorus Iron TIBC Lactate Dehydrogenase Total Creatine Kinase NT-Pro-B Natriuret Pep Total Protein Albumin Dlqxw-1-Rgboyrhum Spkgs-5-Ltrlaaszn Beta Globulins PEP Interpretation Cholesterol LDL Cholesterol Direct Vitamin B12 Urine Creatinine Crossmatch 04/09/16 04/09/16 04/09/16 07:37 11:26 15:45 WBC RBC Hgb Hct MCV MCH MCHC RDW Plt Count Lymph % (Auto) Hand % (Auto) Lymph # Hand # Baso # Seg Neutrophils % Seg Neuts % (Manual) Lymphocytes % (Manual) Seg Neutrophils # Seg Neutrophils # Man Lymphocytes # (Manual) Monocytes # (Manual) Percent Retic PT INR APTT Heparin Anti-Xa Level POC ABG pH POC ABG pCO2 POC ABG pO2 Sodium Potassium Chloride Carbon Dioxide BUN Creatinine Glucose POC Glucose 283 H 306 H 354 H Calcium Phosphorus Iron TIBC Lactate Dehydrogenase Total Creatine Kinase NT-Pro-B Natriuret Pep Total Protein Albumin Mqcui-4-Gnqrysjue Juplj-0-Kxcjkcjyv Beta Globulins PEP Interpretation Cholesterol LDL Cholesterol Direct Vitamin B12 Urine Creatinine Crossmatch 04/10/16 04/10/16 04/10/16 00:53 07:15 07:34 WBC RBC Hgb 11.3 L Hct MCV MCH MCHC RDW Plt Count Lymph % (Auto) Hand % (Auto) Lymph # Hand # Baso # Seg Neutrophils % Seg Neuts % (Manual) Lymphocytes % (Manual) Seg Neutrophils # Seg Neutrophils # Man Lymphocytes # (Manual) Monocytes # (Manual) Percent Retic PT INR APTT Heparin Anti-Xa Level POC ABG pH POC ABG pCO2 POC ABG pO2 Sodium Potassium Chloride Carbon Dioxide BUN Creatinine Glucose POC Glucose 323 H 311 H Calcium Phosphorus Iron TIBC Lactate Dehydrogenase Total Creatine Kinase NT-Pro-B Natriuret Pep Total Protein Albumin Icsey-0-Ttohwkmzb Ocmlq-7-Wkcdbyacq Beta Globulins PEP Interpretation Cholesterol LDL Cholesterol Direct Vitamin B12 Urine Creatinine Crossmatch 04/10/16 04/10/16 04/10/16 07:34 07:34 11:25 WBC RBC Hgb Hct MCV MCH MCHC RDW Plt Count Lymph % (Auto) Hand % (Auto) Lymph # Hand # Baso # Seg Neutrophils % Seg Neuts % (Manual) Lymphocytes % (Manual) Seg Neutrophils # Seg Neutrophils # Man Lymphocytes # (Manual) Monocytes # (Manual) Percent Retic PT 17.3 H INR 1.42 H APTT Heparin Anti-Xa Level POC ABG pH POC ABG pCO2 POC ABG pO2 Sodium 158 H Potassium Chloride 118.6 H Carbon Dioxide BUN 30 H Creatinine Glucose 330 H POC Glucose 335 H Calcium 8.3 L Phosphorus Iron TIBC Lactate Dehydrogenase Total Creatine Kinase NT-Pro-B Natriuret Pep Total Protein Albumin Hplmf-7-Ssmjvqhxv Xqzle-1-Fhcjbkgag Beta Globulins PEP Interpretation Cholesterol LDL Cholesterol Direct Vitamin B12 Urine Creatinine Crossmatch 04/10/16 04/11/16 04/11/16 16:21 00:29 07:47 WBC RBC Hgb Hct MCV MCH MCHC RDW Plt Count Lymph % (Auto) Hand % (Auto) Lymph # Hand # Baso # Seg Neutrophils % Seg Neuts % (Manual) Lymphocytes % (Manual) Seg Neutrophils # Seg Neutrophils # Man Lymphocytes # (Manual) Monocytes # (Manual) Percent Retic PT 18.4 H INR 1.53 H APTT Heparin Anti-Xa Level POC ABG pH POC ABG pCO2 POC ABG pO2 Sodium Potassium Chloride Carbon Dioxide BUN Creatinine Glucose POC Glucose 230 H 162 H Calcium Phosphorus Iron TIBC Lactate Dehydrogenase Total Creatine Kinase NT-Pro-B Natriuret Pep Total Protein Albumin Qzevj-2-Heeyauwhr Llibh-0-Ztjymuhyv Beta Globulins PEP Interpretation Cholesterol LDL Cholesterol Direct Vitamin B12 Urine Creatinine Crossmatch 04/11/16 04/11/16 04/12/16 07:47 11:22 04:54 WBC RBC Hgb 11.0 L Hct 35.0 L MCV MCH MCHC RDW Plt Count Lymph % (Auto) Hand % (Auto) Lymph # Hand # Baso # Seg Neutrophils % Seg Neuts % (Manual) Lymphocytes % (Manual) Seg Neutrophils # Seg Neutrophils # Man Lymphocytes # (Manual) Monocytes # (Manual) Percent Retic PT INR APTT Heparin Anti-Xa Level POC ABG pH POC ABG pCO2 POC ABG pO2 Sodium 155 H Potassium Chloride 114.5 H Carbon Dioxide BUN 23 H Creatinine Glucose 157 H POC Glucose 229 H Calcium Phosphorus Iron TIBC Lactate Dehydrogenase Total Creatine Kinase NT-Pro-B Natriuret Pep Total Protein Albumin Xcuyy-3-Wzuvtspoj Qidkz-7-Vzxfrvacy Beta Globulins PEP Interpretation Cholesterol LDL Cholesterol Direct Vitamin B12 Urine Creatinine Crossmatch 04/12/16 04/12/16 04/12/16 04:54 04:54 05:57 WBC RBC Hgb Hct MCV MCH MCHC RDW Plt Count Lymph % (Auto) Hand % (Auto) Lymph # Hand # Baso # Seg Neutrophils % Seg Neuts % (Manual) Lymphocytes % (Manual) Seg Neutrophils # Seg Neutrophils # Man Lymphocytes # (Manual) Monocytes # (Manual) Percent Retic PT 22.5 H INR 1.98 H APTT Heparin Anti-Xa Level 0.19 L POC ABG pH POC ABG pCO2 POC ABG pO2 Sodium 156 H Potassium Chloride 115.4 H Carbon Dioxide BUN 23 H Creatinine Glucose 143 H POC Glucose 194 H Calcium Phosphorus Iron TIBC Lactate Dehydrogenase Total Creatine Kinase NT-Pro-B Natriuret Pep Total Protein Albumin Kwdbp-0-Tyfffvasy Pshxh-0-Vpftkhgaq Beta Globulins PEP Interpretation Cholesterol LDL Cholesterol Direct Vitamin B12 Urine Creatinine Crossmatch 04/12/16 04/12/16 04/12/16 12:34 19:01 23:30 WBC RBC Hgb Hct MCV MCH MCHC RDW Plt Count Lymph % (Auto) Hand % (Auto) Lymph # Hand # Baso # Seg Neutrophils % Seg Neuts % (Manual) Lymphocytes % (Manual) Seg Neutrophils # Seg Neutrophils # Man Lymphocytes # (Manual) Monocytes # (Manual) Percent Retic PT INR APTT Heparin Anti-Xa Level POC ABG pH POC ABG pCO2 POC ABG pO2 Sodium Potassium Chloride Carbon Dioxide BUN Creatinine Glucose POC Glucose 291 H 235 H 154 H Calcium Phosphorus Iron TIBC Lactate Dehydrogenase Total Creatine Kinase NT-Pro-B Natriuret Pep Total Protein Albumin Rvwoq-8-Gyedgzujf Dovaj-8-Clwtblxlb Beta Globulins PEP Interpretation Cholesterol LDL Cholesterol Direct Vitamin B12 Urine Creatinine Crossmatch 04/13/16 04/13/16 04/13/16 05:16 05:16 05:28 WBC RBC Hgb Hct MCV MCH MCHC RDW Plt Count Lymph % (Auto) Hand % (Auto) Lymph # Hand # Baso # Seg Neutrophils % Seg Neuts % (Manual) Lymphocytes % (Manual) Seg Neutrophils # Seg Neutrophils # Man Lymphocytes # (Manual) Monocytes # (Manual) Percent Retic PT 27.0 H INR 2.49 H APTT Heparin Anti-Xa Level 0.20 L POC ABG pH POC ABG pCO2 POC ABG pO2 Sodium 150 H Potassium Chloride 110.5 H Carbon Dioxide BUN 21 H Creatinine Glucose 159 H POC Glucose 177 H Calcium Phosphorus Iron TIBC Lactate Dehydrogenase Total Creatine Kinase NT-Pro-B Natriuret Pep Total Protein Albumin Lwwdc-1-Xggputeix Mmozm-2-Aeugavkrl Beta Globulins PEP Interpretation Cholesterol LDL Cholesterol Direct Vitamin B12 Urine Creatinine Crossmatch 04/13/16 04/13/16 04/14/16 11:30 17:54 00:44 WBC RBC Hgb Hct MCV MCH MCHC RDW Plt Count Lymph % (Auto) Hand % (Auto) Lymph # Hand # Baso # Seg Neutrophils % Seg Neuts % (Manual) Lymphocytes % (Manual) Seg Neutrophils # Seg Neutrophils # Man Lymphocytes # (Manual) Monocytes # (Manual) Percent Retic PT INR APTT Heparin Anti-Xa Level POC ABG pH POC ABG pCO2 POC ABG pO2 Sodium Potassium Chloride Carbon Dioxide BUN Creatinine Glucose POC Glucose 181 H 251 H 237 H Calcium Phosphorus Iron TIBC Lactate Dehydrogenase Total Creatine Kinase NT-Pro-B Natriuret Pep Total Protein Albumin Qnugy-5-Qnnbqltyy Jfksq-9-Ealjhgzwm Beta Globulins PEP Interpretation Cholesterol LDL Cholesterol Direct Vitamin B12 Urine Creatinine Crossmatch 04/14/16 04/14/16 04/14/16 05:00 05:42 05:42 WBC RBC Hgb Hct MCV MCH MCHC RDW Plt Count Lymph % (Auto) Hand % (Auto) Lymph # Hand # Baso # Seg Neutrophils % Seg Neuts % (Manual) Lymphocytes % (Manual) Seg Neutrophils # Seg Neutrophils # Man Lymphocytes # (Manual) Monocytes # (Manual) Percent Retic PT 30.3 H INR 2.88 H APTT Heparin Anti-Xa Level 0.27 L POC ABG pH POC ABG pCO2 POC ABG pO2 Sodium Potassium 3.5 L Chloride Carbon Dioxide BUN Creatinine Glucose 160 H POC Glucose Calcium 8.2 L Phosphorus Iron TIBC Lactate Dehydrogenase Total Creatine Kinase NT-Pro-B Natriuret Pep Total Protein Albumin Ecpdn-6-Qgwjssfgm Sopmd-3-Pcvzgtije Beta Globulins PEP Interpretation Cholesterol LDL Cholesterol Direct Vitamin B12 Urine Creatinine Crossmatch 04/14/16 04/14/16 04/14/16 06:02 06:16 09:18 WBC 12.3 H RBC Hgb 11.4 L Hct MCV 82 L MCH 26 L MCHC RDW Plt Count Lymph % (Auto) Hand % (Auto) Lymph # Hand # Baso # Seg Neutrophils % Seg Neuts % (Manual) Lymphocytes % (Manual) Seg Neutrophils # Seg Neutrophils # Man Lymphocytes # (Manual) Monocytes # (Manual) Percent Retic PT INR APTT Heparin Anti-Xa Level POC ABG pH POC ABG pCO2 POC ABG pO2 Sodium Potassium Chloride Carbon Dioxide BUN Creatinine Glucose POC Glucose 156 H 164 H Calcium Phosphorus Iron TIBC Lactate Dehydrogenase Total Creatine Kinase NT-Pro-B Natriuret Pep Total Protein Albumin Zffbs-4-Nddzdsikh Sxqfi-9-Wiqrcildb Beta Globulins PEP Interpretation Cholesterol LDL Cholesterol Direct Vitamin B12 Urine Creatinine Crossmatch 04/14/16 04/15/16 04/15/16 13:58 01:07 06:04 WBC RBC Hgb Hct MCV MCH MCHC RDW Plt Count Lymph % (Auto) Hand % (Auto) Lymph # Hand # Baso # Seg Neutrophils % Seg Neuts % (Manual) Lymphocytes % (Manual) Seg Neutrophils # Seg Neutrophils # Man Lymphocytes # (Manual) Monocytes # (Manual) Percent Retic PT 24.9 H INR 2.25 H APTT Heparin Anti-Xa Level POC ABG pH POC ABG pCO2 POC ABG pO2 Sodium Potassium Chloride Carbon Dioxide BUN Creatinine Glucose POC Glucose 109 H 154 H Calcium Phosphorus Iron TIBC Lactate Dehydrogenase Total Creatine Kinase NT-Pro-B Natriuret Pep Total Protein Albumin Pqjhd-2-Zvzdcsnhp Pundu-3-Kaiyrtnbe Beta Globulins PEP Interpretation Cholesterol LDL Cholesterol Direct Vitamin B12 Urine Creatinine Crossmatch 04/15/16 04/15/16 04/16/16 06:08 12:41 00:38 WBC RBC Hgb Hct MCV MCH MCHC RDW Plt Count Lymph % (Auto) Hand % (Auto) Lymph # Hand # Baso # Seg Neutrophils % Seg Neuts % (Manual) Lymphocytes % (Manual) Seg Neutrophils # Seg Neutrophils # Man Lymphocytes # (Manual) Monocytes # (Manual) Percent Retic PT INR APTT Heparin Anti-Xa Level POC ABG pH POC ABG pCO2 POC ABG pO2 Sodium Potassium Chloride Carbon Dioxide BUN Creatinine Glucose POC Glucose 165 H 223 H 216 H Calcium Phosphorus Iron TIBC Lactate Dehydrogenase Total Creatine Kinase NT-Pro-B Natriuret Pep Total Protein Albumin Dcjtc-0-Sxvgdacbv Icxbz-3-Kibmpwayv Beta Globulins PEP Interpretation Cholesterol LDL Cholesterol Direct Vitamin B12 Urine Creatinine Crossmatch 04/16/16 04/16/16 04/16/16 05:45 07:09 14:00 WBC RBC Hgb Hct MCV MCH MCHC RDW Plt Count Lymph % (Auto) Hand % (Auto) Lymph # Hand # Baso # Seg Neutrophils % Seg Neuts % (Manual) Lymphocytes % (Manual) Seg Neutrophils # Seg Neutrophils # Man Lymphocytes # (Manual) Monocytes # (Manual) Percent Retic PT 19.4 H INR 1.64 H APTT Heparin Anti-Xa Level 0.10 L POC ABG pH POC ABG pCO2 POC ABG pO2 Sodium Potassium Chloride Carbon Dioxide BUN Creatinine Glucose POC Glucose 207 H 69 L Calcium Phosphorus Iron TIBC Lactate Dehydrogenase Total Creatine Kinase NT-Pro-B Natriuret Pep Total Protein Albumin Crjtm-1-Djhqxfwsx Cjlcl-2-Btavnddyj Beta Globulins PEP Interpretation Cholesterol LDL Cholesterol Direct Vitamin B12 Urine Creatinine Crossmatch 04/16/16 04/16/16 04/16/16 17:40 17:52 19:38 WBC RBC Hgb Hct MCV MCH MCHC RDW Plt Count Lymph % (Auto) Hand % (Auto) Lymph # Hand # Baso # Seg Neutrophils % Seg Neuts % (Manual) Lymphocytes % (Manual) Seg Neutrophils # Seg Neutrophils # Man Lymphocytes # (Manual) Monocytes # (Manual) Percent Retic PT INR APTT Heparin Anti-Xa Level 0.26 L POC ABG pH 7.543 H 7.488 H POC ABG pCO2 26.3 L 30.3 L POC ABG pO2 55 L 203 H Sodium Potassium Chloride Carbon Dioxide BUN Creatinine Glucose POC Glucose Calcium Phosphorus Iron TIBC Lactate Dehydrogenase Total Creatine Kinase NT-Pro-B Natriuret Pep Total Protein Albumin Melwg-6-Ejvugtess Ksmao-1-Ifpeugnew Beta Globulins PEP Interpretation Cholesterol LDL Cholesterol Direct Vitamin B12 Urine Creatinine Crossmatch 04/17/16 04/17/16 04/17/16 00:04 05:10 05:36 WBC RBC Hgb Hct MCV MCH MCHC RDW Plt Count Lymph % (Auto) Hand % (Auto) Lymph # Hand # Baso # Seg Neutrophils % Seg Neuts % (Manual) Lymphocytes % (Manual) Seg Neutrophils # Seg Neutrophils # Man Lymphocytes # (Manual) Monocytes # (Manual) Percent Retic PT INR APTT Heparin Anti-Xa Level POC ABG pH POC ABG pCO2 32.7 L POC ABG pO2 68 L Sodium Potassium Chloride Carbon Dioxide BUN Creatinine Glucose POC Glucose 113 H 161 H Calcium Phosphorus Iron TIBC Lactate Dehydrogenase Total Creatine Kinase NT-Pro-B Natriuret Pep Total Protein Albumin Xyppp-3-Dcefjjqrj Bidxd-6-Chnrophqb Beta Globulins PEP Interpretation Cholesterol LDL Cholesterol Direct Vitamin B12 Urine Creatinine Crossmatch 04/17/16 04/17/16 04/17/16 05:41 08:37 11:46 WBC RBC Hgb Hct MCV MCH MCHC RDW Plt Count Lymph % (Auto) Hand % (Auto) Lymph # Hand # Baso # Seg Neutrophils % Seg Neuts % (Manual) Lymphocytes % (Manual) Seg Neutrophils # Seg Neutrophils # Man Lymphocytes # (Manual) Monocytes # (Manual) Percent Retic PT 17.4 H INR 1.43 H APTT Heparin Anti-Xa Level POC ABG pH POC ABG pCO2 POC ABG pO2 Sodium Potassium Chloride Carbon Dioxide BUN Creatinine Glucose POC Glucose 154 H 138 H Calcium Phosphorus Iron TIBC Lactate Dehydrogenase Total Creatine Kinase NT-Pro-B Natriuret Pep Total Protein Albumin Pyits-5-Krrhpsibp Yqkkq-1-Jworhtniy Beta Globulins PEP Interpretation Cholesterol LDL Cholesterol Direct Vitamin B12 Urine Creatinine Crossmatch 04/17/16 04/17/16 04/17/16 12:17 12:17 21:20 WBC 16.5 H RBC 3.31 L Hgb 8.8 L Hct 26.9 L MCV 81 L MCH 27 L MCHC RDW 15.5 H Plt Count Lymph % (Auto) Hand % (Auto) Lymph # Hand # Baso # Seg Neutrophils % Seg Neuts % (Manual) Lymphocytes % (Manual) 3.0 L Seg Neutrophils # Seg Neutrophils # Man 10.1 H Lymphocytes # (Manual) 0.5 L Monocytes # (Manual) Percent Retic PT INR APTT Heparin Anti-Xa Level 0.14 L POC ABG pH POC ABG pCO2 POC ABG pO2 Sodium Potassium Chloride Carbon Dioxide 21 L BUN 38 H Creatinine 1.8 H D Glucose 131 H POC Glucose Calcium 7.6 L Phosphorus Iron TIBC Lactate Dehydrogenase Total Creatine Kinase NT-Pro-B Natriuret Pep Total Protein Albumin Xytwm-4-Vkfdyvwpt Qgfac-2-Elbgjinul Beta Globulins PEP Interpretation Cholesterol LDL Cholesterol Direct Vitamin B12 Urine Creatinine Crossmatch 04/17/16 04/17/16 04/18/16 23:38 23:41 00:21 WBC RBC Hgb Hct MCV MCH MCHC RDW Plt Count Lymph % (Auto) Hand % (Auto) Lymph # Hand # Baso # Seg Neutrophils % Seg Neuts % (Manual) Lymphocytes % (Manual) Seg Neutrophils # Seg Neutrophils # Man Lymphocytes # (Manual) Monocytes # (Manual) Percent Retic PT INR APTT Heparin Anti-Xa Level POC ABG pH POC ABG pCO2 POC ABG pO2 Sodium Potassium Chloride Carbon Dioxide BUN Creatinine Glucose POC Glucose < 40 L < 40 L 223 H Calcium Phosphorus Iron TIBC Lactate Dehydrogenase Total Creatine Kinase NT-Pro-B Natriuret Pep Total Protein Albumin Wzcfe-3-Ysnpentvb Ymqdp-3-Qsscptzpx Beta Globulins PEP Interpretation Cholesterol LDL Cholesterol Direct Vitamin B12 Urine Creatinine Crossmatch 04/18/16 04/18/16 04/18/16 05:01 05:20 05:20 WBC 17.6 H RBC 3.44 L Hgb 9.1 L Hct 27.8 L MCV 81 L MCH 26 L MCHC RDW 15.5 H Plt Count Lymph % (Auto) 2.7 L Hand % (Auto) 8.3 H Lymph # 0.5 L Hand # 1.5 H Baso # Seg Neutrophils % 88.4 H Seg Neuts % (Manual) Lymphocytes % (Manual) Seg Neutrophils # 15.6 H Seg Neutrophils # Man Lymphocytes # (Manual) Monocytes # (Manual) Percent Retic PT 17.4 H INR 1.43 H APTT Heparin Anti-Xa Level POC ABG pH 7.528 H POC ABG pCO2 27.9 L POC ABG pO2 Sodium Potassium Chloride Carbon Dioxide BUN Creatinine Glucose POC Glucose Calcium Phosphorus Iron TIBC Lactate Dehydrogenase Total Creatine Kinase NT-Pro-B Natriuret Pep Total Protein Albumin Qzhyx-5-Qwqwmsaqm Pkwxt-1-Etalrvwsm Beta Globulins PEP Interpretation Cholesterol LDL Cholesterol Direct Vitamin B12 Urine Creatinine Crossmatch 04/18/16 04/18/16 04/18/16 05:20 05:31 06:50 WBC RBC Hgb Hct MCV MCH MCHC RDW Plt Count Lymph % (Auto) Hand % (Auto) Lymph # Hand # Baso # Seg Neutrophils % Seg Neuts % (Manual) Lymphocytes % (Manual) Seg Neutrophils # Seg Neutrophils # Man Lymphocytes # (Manual) Monocytes # (Manual) Percent Retic PT INR APTT Heparin Anti-Xa Level POC ABG pH POC ABG pCO2 POC ABG pO2 Sodium Potassium 3.4 L Chloride Carbon Dioxide 21 L BUN 22 H Creatinine Glucose POC Glucose 61 L 124 H Calcium 8.0 L Phosphorus Iron TIBC Lactate Dehydrogenase Total Creatine Kinase NT-Pro-B Natriuret Pep Total Protein Albumin Drvwe-4-Wvzidxlbw Dzamm-7-Fkoivsvfz Beta Globulins PEP Interpretation Cholesterol LDL Cholesterol Direct Vitamin B12 Urine Creatinine Crossmatch 04/18/16 04/18/16 04/19/16 17:42 22:40 00:31 WBC RBC Hgb Hct MCV MCH MCHC RDW Plt Count Lymph % (Auto) Hand % (Auto) Lymph # Hand # Baso # Seg Neutrophils % Seg Neuts % (Manual) Lymphocytes % (Manual) Seg Neutrophils # Seg Neutrophils # Man Lymphocytes # (Manual) Monocytes # (Manual) Percent Retic PT INR APTT Heparin Anti-Xa Level < 0.10 L POC ABG pH POC ABG pCO2 POC ABG pO2 Sodium Potassium Chloride Carbon Dioxide BUN Creatinine Glucose POC Glucose 159 H 134 H Calcium Phosphorus Iron TIBC Lactate Dehydrogenase Total Creatine Kinase NT-Pro-B Natriuret Pep Total Protein Albumin Jaztn-8-Bhsztjjth Gyyjf-2-Zsaflvsiq Beta Globulins PEP Interpretation Cholesterol LDL Cholesterol Direct Vitamin B12 Urine Creatinine Crossmatch 04/19/16 04/19/16 04/19/16 04:18 04:18 04:25 WBC 19.0 H RBC 3.58 L Hgb 9.3 L Hct 28.8 L MCV 80 L MCH 26 L MCHC RDW 15.5 H Plt Count Lymph % (Auto) 2.8 L Hand % (Auto) 7.4 H Lymph # 0.5 L Hand # 1.4 H Baso # Seg Neutrophils % 89.4 H Seg Neuts % (Manual) Lymphocytes % (Manual) Seg Neutrophils # 17.0 H Seg Neutrophils # Man Lymphocytes # (Manual) Monocytes # (Manual) Percent Retic PT INR APTT Heparin Anti-Xa Level POC ABG pH 7.527 H POC ABG pCO2 27.1 L POC ABG pO2 Sodium Potassium Chloride Carbon Dioxide BUN 22 H Creatinine Glucose 215 H POC Glucose Calcium 8.0 L Phosphorus Iron TIBC Lactate Dehydrogenase Total Creatine Kinase NT-Pro-B Natriuret Pep Total Protein Albumin Nelxj-7-Gibffalyk Rwkpo-0-Aoecvktvb Beta Globulins PEP Interpretation Cholesterol LDL Cholesterol Direct Vitamin B12 Urine Creatinine Crossmatch 04/19/16 04/19/16 04/19/16 05:45 08:10 14:08 WBC RBC Hgb Hct MCV MCH MCHC RDW Plt Count Lymph % (Auto) Hand % (Auto) Lymph # Hand # Baso # Seg Neutrophils % Seg Neuts % (Manual) Lymphocytes % (Manual) Seg Neutrophils # Seg Neutrophils # Man Lymphocytes # (Manual) Monocytes # (Manual) Percent Retic PT 22.1 H INR 1.93 H APTT Heparin Anti-Xa Level 0.17 L POC ABG pH POC ABG pCO2 POC ABG pO2 Sodium Potassium Chloride Carbon Dioxide BUN Creatinine Glucose POC Glucose 196 H 318 H Calcium Phosphorus Iron TIBC Lactate Dehydrogenase Total Creatine Kinase NT-Pro-B Natriuret Pep Total Protein Albumin Bhkkz-1-Hkskjwaai Alsrs-2-Pqzxrizbv Beta Globulins PEP Interpretation Cholesterol LDL Cholesterol Direct Vitamin B12 Urine Creatinine Crossmatch 04/19/16 04/20/16 04/20/16 17:27 03:55 03:55 WBC 18.5 H RBC 3.19 L Hgb 8.4 L Hct 25.7 L MCV 80 L MCH 26 L MCHC RDW 15.9 H Plt Count Lymph % (Auto) 4.3 L Hand % (Auto) 10.1 H Lymph # 0.8 L Hand # 1.9 H Baso # Seg Neutrophils % 85.2 H Seg Neuts % (Manual) Lymphocytes % (Manual) Seg Neutrophils # 15.8 H Seg Neutrophils # Man Lymphocytes # (Manual) Monocytes # (Manual) Percent Retic PT 22.0 H INR 1.92 H APTT Heparin Anti-Xa Level 0.14 L POC ABG pH POC ABG pCO2 POC ABG pO2 Sodium Potassium Chloride Carbon Dioxide BUN Creatinine Glucose POC Glucose 230 H Calcium Phosphorus Iron TIBC Lactate Dehydrogenase Total Creatine Kinase NT-Pro-B Natriuret Pep Total Protein Albumin Zklac-9-Odliunteh Guheu-9-Gukqelebd Beta Globulins PEP Interpretation Cholesterol LDL Cholesterol Direct Vitamin B12 Urine Creatinine Crossmatch 04/20/16 04/20/16 04/20/16 03:55 04:16 05:52 WBC RBC Hgb Hct MCV MCH MCHC RDW Plt Count Lymph % (Auto) Hand % (Auto) Lymph # Hand # Baso # Seg Neutrophils % Seg Neuts % (Manual) Lymphocytes % (Manual) Seg Neutrophils # Seg Neutrophils # Man Lymphocytes # (Manual) Monocytes # (Manual) Percent Retic PT INR APTT Heparin Anti-Xa Level POC ABG pH 7.474 H POC ABG pCO2 26.5 L POC ABG pO2 Sodium Potassium Chloride Carbon Dioxide 18 L BUN 38 H Creatinine 2.7 H D Glucose 159 H POC Glucose 214 H Calcium 8.0 L Phosphorus Iron TIBC Lactate Dehydrogenase Total Creatine Kinase NT-Pro-B Natriuret Pep Total Protein Albumin Pnlfm-7-Qaatirgfj Qabet-0-Jxwsbbdwh Beta Globulins PEP Interpretation Cholesterol LDL Cholesterol Direct Vitamin B12 Urine Creatinine Crossmatch 04/20/16 04/20/16 04/20/16 10:32 11:27 11:50 WBC RBC Hgb Hct MCV MCH MCHC RDW Plt Count Lymph % (Auto) Hand % (Auto) Lymph # Hand # Baso # Seg Neutrophils % Seg Neuts % (Manual) Lymphocytes % (Manual) Seg Neutrophils # Seg Neutrophils # Man Lymphocytes # (Manual) Monocytes # (Manual) Percent Retic PT INR APTT Heparin Anti-Xa Level POC ABG pH POC ABG pCO2 POC ABG pO2 Sodium Potassium Chloride Carbon Dioxide 20 L BUN 45 H Creatinine 3.0 H Glucose 215 H POC Glucose 248 H Calcium 8.0 L Phosphorus Iron TIBC Lactate Dehydrogenase Total Creatine Kinase NT-Pro-B Natriuret Pep Total Protein Albumin Ynaze-3-Blsqhhdcc Cqgyu-1-Mrsbevilx Beta Globulins PEP Interpretation Cholesterol LDL Cholesterol Direct Vitamin B12 Urine Creatinine 85.5 H Crossmatch 04/20/16 04/21/16 04/21/16 16:59 00:13 04:29 WBC RBC Hgb Hct MCV MCH MCHC RDW Plt Count Lymph % (Auto) Hand % (Auto) Lymph # Hand # Baso # Seg Neutrophils % Seg Neuts % (Manual) Lymphocytes % (Manual) Seg Neutrophils # Seg Neutrophils # Man Lymphocytes # (Manual) Monocytes # (Manual) Percent Retic PT 18.1 H INR 1.50 H APTT Heparin Anti-Xa Level 0.10 L POC ABG pH POC ABG pCO2 POC ABG pO2 Sodium Potassium Chloride Carbon Dioxide BUN Creatinine Glucose POC Glucose 312 H 287 H Calcium Phosphorus Iron TIBC Lactate Dehydrogenase Total Creatine Kinase NT-Pro-B Natriuret Pep Total Protein Albumin Phckp-8-Ooubjurhv Yajzd-3-Dcdocjmht Beta Globulins PEP Interpretation Cholesterol LDL Cholesterol Direct Vitamin B12 Urine Creatinine Crossmatch 04/21/16 04/21/16 04/21/16 04:29 04:29 04:55 WBC 15.4 H RBC 3.24 L Hgb 8.4 L Hct 25.6 L MCV 79 L MCH 26 L MCHC RDW 16.1 H Plt Count Lymph % (Auto) 6.8 L Hand % (Auto) 12.9 H Lymph # 1.0 L Hand # 2.0 H Baso # Seg Neutrophils % 79.8 H Seg Neuts % (Manual) Lymphocytes % (Manual) Seg Neutrophils # 12.3 H Seg Neutrophils # Man Lymphocytes # (Manual) Monocytes # (Manual) Percent Retic PT INR APTT Heparin Anti-Xa Level POC ABG pH 7.512 H POC ABG pCO2 25.4 L POC ABG pO2 Sodium 135 L Potassium Chloride Carbon Dioxide 18 L BUN 57 H Creatinine 3.9 H Glucose 202 H POC Glucose Calcium 8.0 L Phosphorus Iron TIBC Lactate Dehydrogenase Total Creatine Kinase NT-Pro-B Natriuret Pep Total Protein Albumin Ldjtj-5-Gfcdtedoe Dkdgw-9-Sjkxlkwdn Beta Globulins PEP Interpretation Cholesterol LDL Cholesterol Direct Vitamin B12 Urine Creatinine Crossmatch 04/21/16 04/21/16 04/21/16 05:20 12:08 12:16 WBC RBC Hgb Hct MCV MCH MCHC RDW Plt Count Lymph % (Auto) Hand % (Auto) Lymph # Hand # Baso # Seg Neutrophils % Seg Neuts % (Manual) Lymphocytes % (Manual) Seg Neutrophils # Seg Neutrophils # Man Lymphocytes # (Manual) Monocytes # (Manual) Percent Retic PT INR APTT Heparin Anti-Xa Level 0.16 L POC ABG pH POC ABG pCO2 POC ABG pO2 Sodium Potassium Chloride Carbon Dioxide BUN Creatinine Glucose POC Glucose 203 H 221 H Calcium Phosphorus Iron TIBC Lactate Dehydrogenase Total Creatine Kinase NT-Pro-B Natriuret Pep Total Protein Albumin Zqorn-8-Ykksmttai Ighem-4-Aungpreyh Beta Globulins PEP Interpretation Cholesterol LDL Cholesterol Direct Vitamin B12 Urine Creatinine Crossmatch 04/21/16 04/22/16 04/22/16 17:22 05:01 05:20 WBC RBC Hgb Hct MCV MCH MCHC RDW Plt Count Lymph % (Auto) Hand % (Auto) Lymph # Hand # Baso # Seg Neutrophils % Seg Neuts % (Manual) Lymphocytes % (Manual) Seg Neutrophils # Seg Neutrophils # Man Lymphocytes # (Manual) Monocytes # (Manual) Percent Retic PT 17.5 H INR 1.44 H APTT Heparin Anti-Xa Level POC ABG pH 7.460 H POC ABG pCO2 27.9 L POC ABG pO2 Sodium Potassium Chloride Carbon Dioxide BUN Creatinine Glucose POC Glucose 189 H Calcium Phosphorus Iron TIBC Lactate Dehydrogenase Total Creatine Kinase NT-Pro-B Natriuret Pep Total Protein Albumin Pnhav-0-Pjalgyzal Qeuqr-4-Wuijpfhnd Beta Globulins PEP Interpretation Cholesterol LDL Cholesterol Direct Vitamin B12 Urine Creatinine Crossmatch 04/22/16 04/22/16 04/22/16 05:43 06:40 08:08 WBC RBC Hgb Hct MCV MCH MCHC RDW Plt Count Lymph % (Auto) Hand % (Auto) Lymph # Hand # Baso # Seg Neutrophils % Seg Neuts % (Manual) Lymphocytes % (Manual) Seg Neutrophils # Seg Neutrophils # Man Lymphocytes # (Manual) Monocytes # (Manual) Percent Retic PT INR APTT Heparin Anti-Xa Level POC ABG pH POC ABG pCO2 POC ABG pO2 Sodium Potassium Chloride Carbon Dioxide BUN Creatinine Glucose POC Glucose 56 L 136 H 134 H Calcium Phosphorus Iron TIBC Lactate Dehydrogenase Total Creatine Kinase NT-Pro-B Natriuret Pep Total Protein Albumin Sdqqg-8-Lqtsmgvoc Ncyzv-1-Xcsivrkmq Beta Globulins PEP Interpretation Cholesterol LDL Cholesterol Direct Vitamin B12 Urine Creatinine Crossmatch 04/22/16 04/22/16 04/22/16 11:18 12:10 18:17 WBC RBC Hgb Hct MCV MCH MCHC RDW Plt Count Lymph % (Auto) Hand % (Auto) Lymph # Hand # Baso # Seg Neutrophils % Seg Neuts % (Manual) Lymphocytes % (Manual) Seg Neutrophils # Seg Neutrophils # Man Lymphocytes # (Manual) Monocytes # (Manual) Percent Retic PT INR APTT Heparin Anti-Xa Level 0.12 L POC ABG pH POC ABG pCO2 POC ABG pO2 Sodium Potassium Chloride Carbon Dioxide BUN Creatinine Glucose POC Glucose 142 H 227 H Calcium Phosphorus Iron TIBC Lactate Dehydrogenase Total Creatine Kinase NT-Pro-B Natriuret Pep Total Protein Albumin Hhpxm-7-Rcfrleuac Fdhhr-4-Ehcvjjisi Beta Globulins PEP Interpretation Cholesterol LDL Cholesterol Direct Vitamin B12 Urine Creatinine Crossmatch 04/22/16 04/22/16 04/23/16 22:28 23:47 04:49 WBC RBC Hgb Hct MCV MCH MCHC RDW Plt Count Lymph % (Auto) Hand % (Auto) Lymph # Hand # Baso # Seg Neutrophils % Seg Neuts % (Manual) Lymphocytes % (Manual) Seg Neutrophils # Seg Neutrophils # Man Lymphocytes # (Manual) Monocytes # (Manual) Percent Retic PT INR APTT Heparin Anti-Xa Level 0.16 L POC ABG pH POC ABG pCO2 32.6 L POC ABG pO2 122 H Sodium Potassium Chloride Carbon Dioxide BUN Creatinine Glucose POC Glucose 266 H Calcium Phosphorus Iron TIBC Lactate Dehydrogenase Total Creatine Kinase NT-Pro-B Natriuret Pep Total Protein Albumin Eahwl-2-Fmrufelad Lfged-8-Ofxnvxmbb Beta Globulins PEP Interpretation Cholesterol LDL Cholesterol Direct Vitamin B12 Urine Creatinine Crossmatch 04/23/16 04/23/16 04/23/16 05:41 08:05 08:34 WBC RBC Hgb Hct MCV MCH MCHC RDW Plt Count Lymph % (Auto) Hand % (Auto) Lymph # Hand # Baso # Seg Neutrophils % Seg Neuts % (Manual) Lymphocytes % (Manual) Seg Neutrophils # Seg Neutrophils # Man Lymphocytes # (Manual) Monocytes # (Manual) Percent Retic PT INR APTT Heparin Anti-Xa Level POC ABG pH POC ABG pCO2 POC ABG pO2 Sodium Potassium Chloride 109.5 H Carbon Dioxide 21 L BUN 23 H Creatinine Glucose 227 H POC Glucose 227 H 224 H Calcium 8.2 L Phosphorus Iron TIBC Lactate Dehydrogenase Total Creatine Kinase NT-Pro-B Natriuret Pep Total Protein Albumin Sxxdk-0-Cjixdogty Dlcnd-2-Wiodgkzix Beta Globulins PEP Interpretation Cholesterol LDL Cholesterol Direct Vitamin B12 Urine Creatinine Crossmatch 04/23/16 04/23/16 04/23/16 10:45 11:37 22:49 WBC RBC Hgb Hct MCV MCH MCHC RDW Plt Count Lymph % (Auto) Hand % (Auto) Lymph # Hand # Baso # Seg Neutrophils % Seg Neuts % (Manual) Lymphocytes % (Manual) Seg Neutrophils # Seg Neutrophils # Man Lymphocytes # (Manual) Monocytes # (Manual) Percent Retic PT 15.9 H INR 1.28 H APTT Heparin Anti-Xa Level 0.12 L POC ABG pH POC ABG pCO2 POC ABG pO2 Sodium Potassium Chloride Carbon Dioxide BUN Creatinine Glucose POC Glucose 256 H Calcium Phosphorus Iron TIBC Lactate Dehydrogenase Total Creatine Kinase NT-Pro-B Natriuret Pep Total Protein Albumin Zzbap-2-Wmantcztt Nhcoc-6-Feicophsf Beta Globulins PEP Interpretation Cholesterol LDL Cholesterol Direct Vitamin B12 Urine Creatinine Crossmatch 04/23/16 04/24/16 04/24/16 23:59 05:29 06:03 WBC RBC Hgb Hct MCV MCH MCHC RDW Plt Count Lymph % (Auto) Hand % (Auto) Lymph # Hand # Baso # Seg Neutrophils % Seg Neuts % (Manual) Lymphocytes % (Manual) Seg Neutrophils # Seg Neutrophils # Man Lymphocytes # (Manual) Monocytes # (Manual) Percent Retic PT INR APTT Heparin Anti-Xa Level POC ABG pH 7.464 H POC ABG pCO2 32.4 L POC ABG pO2 115 H Sodium Potassium Chloride Carbon Dioxide BUN Creatinine Glucose POC Glucose 176 H 256 H Calcium Phosphorus Iron TIBC Lactate Dehydrogenase Total Creatine Kinase NT-Pro-B Natriuret Pep Total Protein Albumin Ztvtl-6-Qijqliylb Bavuk-3-Kiblocswc Beta Globulins PEP Interpretation Cholesterol LDL Cholesterol Direct Vitamin B12 Urine Creatinine Crossmatch 04/24/16 04/24/16 04/24/16 07:59 12:10 17:17 WBC RBC Hgb Hct MCV MCH MCHC RDW Plt Count Lymph % (Auto) Hand % (Auto) Lymph # Hand # Baso # Seg Neutrophils % Seg Neuts % (Manual) Lymphocytes % (Manual) Seg Neutrophils # Seg Neutrophils # Man Lymphocytes # (Manual) Monocytes # (Manual) Percent Retic PT INR APTT Heparin Anti-Xa Level 0.18 L POC ABG pH POC ABG pCO2 POC ABG pO2 Sodium Potassium Chloride Carbon Dioxide BUN Creatinine Glucose POC Glucose 304 H 325 H Calcium Phosphorus Iron TIBC Lactate Dehydrogenase Total Creatine Kinase NT-Pro-B Natriuret Pep Total Protein Albumin Acdqt-2-Aqazvlwid Yzhjj-5-Toawzhdvf Beta Globulins PEP Interpretation Cholesterol LDL Cholesterol Direct Vitamin B12 Urine Creatinine Crossmatch 04/25/16 04/25/16 04/25/16 00:52 06:40 06:44 WBC RBC Hgb Hct MCV MCH MCHC RDW Plt Count Lymph % (Auto) Hand % (Auto) Lymph # Hand # Baso # Seg Neutrophils % Seg Neuts % (Manual) Lymphocytes % (Manual) Seg Neutrophils # Seg Neutrophils # Man Lymphocytes # (Manual) Monocytes # (Manual) Percent Retic PT INR APTT Heparin Anti-Xa Level 0.11 L POC ABG pH POC ABG pCO2 POC ABG pO2 Sodium Potassium Chloride Carbon Dioxide BUN Creatinine Glucose POC Glucose 212 H 184 H Calcium Phosphorus Iron TIBC Lactate Dehydrogenase Total Creatine Kinase NT-Pro-B Natriuret Pep Total Protein Albumin Begtm-8-Qhkwdvcou Cfioc-0-Fffiahxzz Beta Globulins PEP Interpretation Cholesterol LDL Cholesterol Direct Vitamin B12 Urine Creatinine Crossmatch 04/25/16 04/25/16 04/25/16 11:40 13:26 17:27 WBC RBC Hgb Hct MCV MCH MCHC RDW Plt Count Lymph % (Auto) Hand % (Auto) Lymph # Hand # Baso # Seg Neutrophils % Seg Neuts % (Manual) Lymphocytes % (Manual) Seg Neutrophils # Seg Neutrophils # Man Lymphocytes # (Manual) Monocytes # (Manual) Percent Retic PT INR APTT Heparin Anti-Xa Level 0.21 L POC ABG pH POC ABG pCO2 POC ABG pO2 Sodium Potassium Chloride Carbon Dioxide BUN Creatinine Glucose POC Glucose 206 H 204 H Calcium Phosphorus Iron TIBC Lactate Dehydrogenase Total Creatine Kinase NT-Pro-B Natriuret Pep Total Protein Albumin Pvtkt-2-Oburkgjlc Jrkab-9-Vubgqebmv Beta Globulins PEP Interpretation Cholesterol LDL Cholesterol Direct Vitamin B12 Urine Creatinine Crossmatch 04/25/16 04/26/16 04/26/16 23:46 06:31 11:51 WBC RBC Hgb Hct MCV MCH MCHC RDW Plt Count Lymph % (Auto) Hand % (Auto) Lymph # Hand # Baso # Seg Neutrophils % Seg Neuts % (Manual) Lymphocytes % (Manual) Seg Neutrophils # Seg Neutrophils # Man Lymphocytes # (Manual) Monocytes # (Manual) Percent Retic PT INR APTT Heparin Anti-Xa Level POC ABG pH POC ABG pCO2 POC ABG pO2 Sodium Potassium Chloride Carbon Dioxide BUN Creatinine Glucose POC Glucose 162 H 148 H 178 H Calcium Phosphorus Iron TIBC Lactate Dehydrogenase Total Creatine Kinase NT-Pro-B Natriuret Pep Total Protein Albumin Gflla-9-Kjkppmlkv Kojnl-3-Vkkrjfowh Beta Globulins PEP Interpretation Cholesterol LDL Cholesterol Direct Vitamin B12 Urine Creatinine Crossmatch 04/26/16 04/26/16 04/26/16 12:17 16:16 18:14 WBC RBC Hgb Hct MCV MCH MCHC RDW Plt Count Lymph % (Auto) Hand % (Auto) Lymph # Hand # Baso # Seg Neutrophils % Seg Neuts % (Manual) Lymphocytes % (Manual) Seg Neutrophils # Seg Neutrophils # Man Lymphocytes # (Manual) Monocytes # (Manual) Percent Retic PT INR APTT Heparin Anti-Xa Level POC ABG pH 7.513 H POC ABG pCO2 POC ABG pO2 76 L Sodium Potassium Chloride Carbon Dioxide BUN Creatinine Glucose POC Glucose 186 H 172 H Calcium Phosphorus Iron TIBC Lactate Dehydrogenase Total Creatine Kinase NT-Pro-B Natriuret Pep Total Protein Albumin Nxrzy-8-Rfvnkyndj Qgxjo-8-Nsonwiqrz Beta Globulins PEP Interpretation Cholesterol LDL Cholesterol Direct Vitamin B12 Urine Creatinine Crossmatch 04/26/16 04/26/16 04/27/16 19:27 23:28 04:21 WBC 13.1 H RBC 2.99 L Hgb 7.8 L Hct 24.0 L MCV 81 L MCH 26 L MCHC RDW 16.7 H Plt Count 486 H Lymph % (Auto) 12.5 L Hand % (Auto) 7.9 H Lymph # Hand # 1.0 H Baso # Seg Neutrophils % 77.5 H Seg Neuts % (Manual) Lymphocytes % (Manual) Seg Neutrophils # 10.2 H Seg Neutrophils # Man Lymphocytes # (Manual) Monocytes # (Manual) Percent Retic PT INR APTT Heparin Anti-Xa Level 0.22 L POC ABG pH POC ABG pCO2 POC ABG pO2 Sodium Potassium Chloride Carbon Dioxide BUN Creatinine Glucose POC Glucose 141 H Calcium Phosphorus Iron TIBC Lactate Dehydrogenase Total Creatine Kinase NT-Pro-B Natriuret Pep Total Protein Albumin Ixyom-5-Iiiopxgok Zbhmr-7-Odhwwzhev Beta Globulins PEP Interpretation Cholesterol LDL Cholesterol Direct Vitamin B12 Urine Creatinine Crossmatch 04/27/16 04/27/16 04/27/16 04:21 05:46 11:04 WBC RBC Hgb Hct MCV MCH MCHC RDW Plt Count Lymph % (Auto) Hand % (Auto) Lymph # Hand # Baso # Seg Neutrophils % Seg Neuts % (Manual) Lymphocytes % (Manual) Seg Neutrophils # Seg Neutrophils # Man Lymphocytes # (Manual) Monocytes # (Manual) Percent Retic PT INR APTT Heparin Anti-Xa Level POC ABG pH 7.489 H POC ABG pCO2 POC ABG pO2 71 L Sodium Potassium Chloride Carbon Dioxide BUN Creatinine 0.6 L Glucose 187 H POC Glucose 192 H Calcium 8.0 L Phosphorus Iron TIBC Lactate Dehydrogenase Total Creatine Kinase NT-Pro-B Natriuret Pep Total Protein 6.0 L Albumin 2.0 L Squwo-7-Ubxvsphzg Zdksh-6-Izusadtal Beta Globulins PEP Interpretation Cholesterol LDL Cholesterol Direct Vitamin B12 Urine Creatinine Crossmatch 04/27/16 04/27/16 04/27/16 14:12 21:58 23:38 WBC RBC Hgb Hct MCV MCH MCHC RDW Plt Count Lymph % (Auto) Hand % (Auto) Lymph # Hand # Baso # Seg Neutrophils % Seg Neuts % (Manual) Lymphocytes % (Manual) Seg Neutrophils # Seg Neutrophils # Man Lymphocytes # (Manual) Monocytes # (Manual) Percent Retic PT INR APTT Heparin Anti-Xa Level 0.24 L POC ABG pH POC ABG pCO2 POC ABG pO2 Sodium Potassium Chloride Carbon Dioxide BUN Creatinine Glucose POC Glucose 216 H 181 H Calcium Phosphorus Iron TIBC Lactate Dehydrogenase Total Creatine Kinase NT-Pro-B Natriuret Pep Total Protein Albumin Bkeeb-9-Ufiubvsfb Gfnir-8-Gatkoikqh Beta Globulins PEP Interpretation Cholesterol LDL Cholesterol Direct Vitamin B12 Urine Creatinine Crossmatch 12/28/16 12/28/16 12/28/16 04:28 05:52 11:31 WBC RBC Hgb Hct MCV MCH MCHC RDW Plt Count Lymph % (Auto) Hand % (Auto) Lymph # Hand # Baso # Seg Neutrophils % Seg Neuts % (Manual) Lymphocytes % (Manual) Seg Neutrophils # Seg Neutrophils # Man Lymphocytes # (Manual) Monocytes # (Manual) Percent Retic PT INR APTT Heparin Anti-Xa Level POC ABG pH 7.524 H POC ABG pCO2 POC ABG pO2 Sodium Potassium Chloride Carbon Dioxide BUN Creatinine Glucose POC Glucose 254 H 280 H Calcium Phosphorus Iron TIBC Lactate Dehydrogenase Total Creatine Kinase NT-Pro-B Natriuret Pep Total Protein Albumin Atdnh-[id number]-[id number] Rcouz-3-[id number] Beta Globulins PEP Interpretation Cholesterol LDL Cholesterol Direct Vitamin B12 Urine Creatinine Crossmatch 04/28/16 04/28/16 04/29/16 17:30 19:52 00:47 WBC RBC Hgb Hct MCV MCH MCHC RDW Plt Count Lymph % (Auto) Hand % (Auto) Lymph # Hand # Baso # Seg Neutrophils % Seg Neuts % (Manual) Lymphocytes % (Manual) Seg Neutrophils # Seg Neutrophils # Man Lymphocytes # (Manual) Monocytes # (Manual) Percent Retic PT INR APTT Heparin Anti-Xa Level 0.15 L POC ABG pH POC ABG pCO2 POC ABG pO2 Sodium Potassium Chloride Carbon Dioxide BUN Creatinine Glucose POC Glucose 208 H 265 H Calcium Phosphorus Iron TIBC Lactate Dehydrogenase Total Creatine Kinase NT-Pro-B Natriuret Pep Total Protein Albumin Gscqp-6-Nnkpdeass Nlzeo-9-Detnrhqor Beta Globulins PEP Interpretation Cholesterol LDL Cholesterol Direct Vitamin B12 Urine Creatinine Crossmatch 04/29/16 04/29/16 04/29/16 04:00 04:00 04:29 WBC 13.4 H RBC 2.56 L Hgb 6.9 L Hct 20.6 L MCV 81 L MCH 27 L MCHC RDW 16.2 H Plt Count 513 H Lymph % (Auto) 10.0 L Hand % (Auto) 12.0 H Lymph # Hand # 1.6 H Baso # Seg Neutrophils % 77.1 H Seg Neuts % (Manual) Lymphocytes % (Manual) Seg Neutrophils # 10.4 H Seg Neutrophils # Man Lymphocytes # (Manual) Monocytes # (Manual) Percent Retic PT INR APTT Heparin Anti-Xa Level POC ABG pH 7.501 H POC ABG pCO2 POC ABG pO2 76 L Sodium Potassium Chloride Carbon Dioxide BUN 27 H Creatinine Glucose 204 H POC Glucose Calcium 8.1 L Phosphorus Iron TIBC Lactate Dehydrogenase Total Creatine Kinase NT-Pro-B Natriuret Pep Total Protein Albumin Ovesx-0-Gskqnzbil Lvabj-1-Pzyhdrtyc Beta Globulins PEP Interpretation Cholesterol LDL Cholesterol Direct Vitamin B12 Urine Creatinine Crossmatch 04/29/16 04/29/16 04/29/16 06:03 10:05 10:16 WBC RBC Hgb Hct MCV MCH MCHC RDW Plt Count Lymph % (Auto) Hand % (Auto) Lymph # Hand # Baso # Seg Neutrophils % Seg Neuts % (Manual) Lymphocytes % (Manual) Seg Neutrophils # Seg Neutrophils # Man Lymphocytes # (Manual) Monocytes # (Manual) Percent Retic 3.68 H PT INR APTT Heparin Anti-Xa Level POC ABG pH POC ABG pCO2 POC ABG pO2 Sodium Potassium Chloride Carbon Dioxide BUN Creatinine Glucose POC Glucose 192 H Calcium Phosphorus Iron TIBC Lactate Dehydrogenase Total Creatine Kinase NT-Pro-B Natriuret Pep Total Protein Albumin Qtlgr-2-Gffhqxjtb Ontss-7-Huvfnjktf Beta Globulins PEP Interpretation Cholesterol LDL Cholesterol Direct Vitamin B12 Urine Creatinine Crossmatch See Detail 04/29/16 04/29/16 04/29/16 10:16 10:16 11:23 WBC RBC Hgb Hct MCV MCH MCHC RDW Plt Count Lymph % (Auto) Hand % (Auto) Lymph # Hand # Baso # Seg Neutrophils % Seg Neuts % (Manual) Lymphocytes % (Manual) Seg Neutrophils # Seg Neutrophils # Man Lymphocytes # (Manual) Monocytes # (Manual) Percent Retic PT INR APTT Heparin Anti-Xa Level POC ABG pH POC ABG pCO2 POC ABG pO2 Sodium Potassium Chloride Carbon Dioxide BUN Creatinine Glucose POC Glucose 116 H Calcium Phosphorus Iron 10 L TIBC 138 L Lactate Dehydrogenase 204 H Total Creatine Kinase NT-Pro-B Natriuret Pep Total Protein Albumin Ipvqc-4-Fuuqohzgt Bdojh-1-Zsqutrpqv Beta Globulins PEP Interpretation Cholesterol LDL Cholesterol Direct Vitamin B12 1005 H Urine Creatinine Crossmatch 04/29/16 04/29/16 04/30/16 17:34 23:19 03:19 WBC RBC Hgb 9.0 L Hct 26.7 L D MCV MCH MCHC RDW Plt Count Lymph % (Auto) Hand % (Auto) Lymph # Hand # Baso # Seg Neutrophils % Seg Neuts % (Manual) Lymphocytes % (Manual) Seg Neutrophils # Seg Neutrophils # Man Lymphocytes # (Manual) Monocytes # (Manual) Percent Retic PT INR APTT Heparin Anti-Xa Level POC ABG pH POC ABG pCO2 POC ABG pO2 Sodium Potassium Chloride Carbon Dioxide BUN Creatinine Glucose POC Glucose 142 H 242 H Calcium Phosphorus Iron TIBC Lactate Dehydrogenase Total Creatine Kinase NT-Pro-B Natriuret Pep Total Protein Albumin Ljntl-7-Kfuwrpnne Dtqpj-9-Jfdpugnpu Beta Globulins PEP Interpretation Cholesterol LDL Cholesterol Direct Vitamin B12 Urine Creatinine Crossmatch 04/30/16 04/30/16 04/30/16 04:10 04:10 04:32 WBC 13.8 H RBC 3.54 L Hgb 9.3 L Hct 29.1 L MCV 82 L MCH 26 L MCHC RDW 16.5 H Plt Count 535 H Lymph % (Auto) 7.5 L Hand % (Auto) 13.8 H Lymph # 1.0 L Hand # 1.9 H Baso # Seg Neutrophils % 78.0 H Seg Neuts % (Manual) Lymphocytes % (Manual) Seg Neutrophils # 10.7 H Seg Neutrophils # Man Lymphocytes # (Manual) Monocytes # (Manual) Percent Retic PT INR APTT Heparin Anti-Xa Level POC ABG pH 7.519 H POC ABG pCO2 33.6 L POC ABG pO2 79 L Sodium 146 H Potassium Chloride Carbon Dioxide BUN Creatinine 0.7 L Glucose 242 H POC Glucose Calcium 8.3 L Phosphorus Iron TIBC Lactate Dehydrogenase Total Creatine Kinase NT-Pro-B Natriuret Pep Total Protein Albumin Llgqd-1-Hemndgcsn Ahbub-0-Pmaenasgf Beta Globulins PEP Interpretation Cholesterol LDL Cholesterol Direct Vitamin B12 Urine Creatinine Crossmatch 04/30/16 04/30/16 04/30/16 05:33 11:23 17:26 WBC RBC Hgb Hct MCV MCH MCHC RDW Plt Count Lymph % (Auto) Hand % (Auto) Lymph # Hand # Baso # Seg Neutrophils % Seg Neuts % (Manual) Lymphocytes % (Manual) Seg Neutrophils # Seg Neutrophils # Man Lymphocytes # (Manual) Monocytes # (Manual) Percent Retic PT INR APTT Heparin Anti-Xa Level POC ABG pH POC ABG pCO2 POC ABG pO2 Sodium Potassium Chloride Carbon Dioxide BUN Creatinine Glucose POC Glucose 242 H 305 H 281 H Calcium Phosphorus Iron TIBC Lactate Dehydrogenase Total Creatine Kinase NT-Pro-B Natriuret Pep Total Protein Albumin Fmroe-0-Htwayabrn Zxmml-6-Yhexfklrj Beta Globulins PEP Interpretation Cholesterol LDL Cholesterol Direct Vitamin B12 Urine Creatinine Crossmatch 04/30/16 05/01/16 05/01/16 23:53 04:00 04:00 WBC 15.9 H RBC 2.99 L Hgb 7.9 L Hct 24.4 L MCV 82 L MCH 26 L MCHC RDW 16.9 H Plt Count 481 H Lymph % (Auto) 9.3 L Hand % (Auto) 15.0 H Lymph # Hand # 2.4 H Baso # Seg Neutrophils % 74.9 H Seg Neuts % (Manual) Lymphocytes % (Manual) Seg Neutrophils # 11.9 H Seg Neutrophils # Man Lymphocytes # (Manual) Monocytes # (Manual) Percent Retic PT INR APTT Heparin Anti-Xa Level POC ABG pH POC ABG pCO2 POC ABG pO2 Sodium 147 H Potassium Chloride 107.8 H Carbon Dioxide BUN 22 H Creatinine 0.7 L Glucose 229 H POC Glucose 207 H Calcium 8.2 L Phosphorus Iron TIBC Lactate Dehydrogenase Total Creatine Kinase NT-Pro-B Natriuret Pep Total Protein Albumin Eijkk-4-Bsvoeroqe Fxyok-2-Qgmvcunki Beta Globulins PEP Interpretation Cholesterol LDL Cholesterol Direct Vitamin B12 Urine Creatinine Crossmatch 05/01/16 05/01/16 05:12 07:41 WBC RBC Hgb Hct MCV MCH MCHC RDW Plt Count Lymph % (Auto) Hand % (Auto) Lymph # Hand # Baso # Seg Neutrophils % Seg Neuts % (Manual) Lymphocytes % (Manual) Seg Neutrophils # Seg Neutrophils # Man Lymphocytes # (Manual) Monocytes # (Manual) Percent Retic PT INR APTT Heparin Anti-Xa Level 0.16 L POC ABG pH POC ABG pCO2 POC ABG pO2 Sodium Potassium Chloride Carbon Dioxide BUN Creatinine Glucose POC Glucose 284 H Calcium Phosphorus Iron TIBC Lactate Dehydrogenase Total Creatine Kinase NT-Pro-B Natriuret Pep Total Protein Albumin Ltfmk-4-Mdpjjvguw Haejs-7-Nqfjeitdj Beta Globulins PEP Interpretation Cholesterol LDL Cholesterol Direct Vitamin B12 Urine Creatinine Crossmatch
[2016-05-01] MEDS: TYLENOL PO PRN (23:06)
[2016-05-02] MEDS: DUONEB 0.5 MG-3 MG/3 ML SOLN IH SCH ×4 (01:10→19:27)
[2016-05-02] MEDS: TYLENOL PO PRN ×2 (04:48→21:12)
[2016-05-02] MEDS ORDERED: TYLENOL PO ONE (05:00)
[2016-05-02 05:12] LABS: Basophils % (Auto) 0.7 % (0.0-1.8); Eosinophils % (Auto) 0.2 % (0.0-4.3); Hematocrit 25.5 % (35.5-45.6); Hemoglobin 8.1 gm/dl (11.8-15.2); Mean Corpuscular HGB Conc 32 % (32-34); Mean Corpuscular Hemoglobin 26 pg (28-32); Mean Corpuscular Volume 83 fl (84-94); Platelet Count 507 K/mm3 (140-440); Red Blood Count 3.09 M/mm3 (3.65-5.03); Red Cell Distribution Width 17.3 % (13.2-15.2); White Blood Count 17.2 K/mm3 (4.5-11.0)
[2016-05-02 05:47] LABS: Blood Urea Nitrogen 24 mg/dL (9-20); Calcium 8.2 mg/dL (8.4-10.2); Carbon Dioxide 27 mmol/L (22-30); Chloride 109.9 mmol/L (98-107); Glucose 224 mg/dL (75-100); Potassium 4.2 mmol/L (3.6-5.0); Sodium 149 mmol/L (137-145)
[2016-05-02] MEDS: NOVOLOG SUB-Q SCH ×3 (05:48→18:37)
[2016-05-02 05:58] LABS: Anion Gap 16 mmol/L
[2016-05-02] MEDS: ZESTRIL PO SCH ×2 (09:28→21:11)
[2016-05-02] MEDS: KEPPRA PO SCH ×2 (09:28→21:10)
[2016-05-02] MEDS: NORVASC PO SCH (09:29)
[2016-05-02] MEDS: CORDARONE PO SCH (09:29)
[2016-05-02] MEDS: PEPCID PO SCH ×2 (09:30→21:11)
[2016-05-02] MEDS: LEVEMIR SUB-Q SCH (09:46)
[2016-05-02] MEDS: BABY ASPIRIN PO SCH (10:00)
--- NOTE | 2016-05-02 10:54 | Progress Note ---
Assessment and Plan Assessment and plan: 1. Acute respiratory failure. Patient reintubated on 04/17/16. Continue mechanical ventilation per pulmonary. Tracheostomy on 04/29/16. Continue CPAP trials 2. Acute CVA. CT scan revealed acute ischemic infarct in the right cerebellum. MRI reveals subacute infarct in the right cerebellar hemisphere with associated edema and mass effect as previously described. Patient also with multiple areas of acute infarct in the left occipital and frontal lobes that are most likely embolic. LIZZIE done- No thrombus but decreased flow. Cardiology recommends anticoagulation with Coumadin. 3. Hypotension. Resolved. Patient currently off pressors of Levophed. Echocardiogram revealed EF of 50-55%. 4. Encephalopathy. EEG normal. Etiology likely secondary to CVA +/- hypertension. 5. Group B strep UTI-treated 6. Accelerated hypertension. Continue antihypertensive medications 7. CAD-stable 8. Seizures-continue Keppra. EEG normal. 9. Type 2 diabetes mellitus. Glycemic control. 10. History of aortic dissection status post repair. 11. History of prosthetic aortic valve replacement. Echo with normal function on 08/2015. 12. DVT prophylaxis-on heparin drip. 13. GI prophylaxis-Pepcid 14. Oropharyngeal dysphagia. Patient failed swallow evaluation. Status post PEG placement on 04/17. 15. Anemia. Etiology is unknown. Check iron studies and Hemoccult of stool. Type and cross and transfuse 2 units. The high probability of a clinically significant, sudden or life threatening deterioration of the [respiratory and neurological] system(s) required my full and direct attention, intervention and personal management. The aggregate critical care time was [31] minutes. This time is in addition to time spent performing reported procedures but includes the following: [x] Data Review and interpretation [x] Patient assessment and monitoring of vital signs [x] Documentation [x] Medication orders and management History Interval history: 60 years old -[place] male with nonobstructive CAD per recent CAD, hypertension, hyperlipidemia, bioprosthetic aortic valve replacement, chronic kidney disease, diabetes and seizure disorder who was initially admitted for metabolic encephalopathy with hypernatremia. Patient developed respiratory failure during this hospitalization on 03/27 and was intubated placed on mechanical ventilation. Patient was later extubated during his hospitalization but was reintubated on the evening of 04/16/16. Patient now remains intubated on mechanical ventilation. Patient is also status post PEG tube placement on . Patient remains on mechanical ventilation. Patient status post tracheostomy on 04/29/16. Hospitalist Physical - Constitutional Vitals: Temp Pulse Resp BP Pulse Ox 99 F 102 H 20 117/69 100 05/02/16 09:34 05/02/16 09:29 05/02/16 08:11 05/02/16 09:29 05/02/16 09:00 General appearance: Present: no acute distress, other (tracheostomy) - EENT Eyes: Present: PERRL, EOM intact ENT: hearing intact, clear oral mucosa, dentition normal - Neck Neck: Present: supple, normal ROM - Respiratory Respiratory effort: normal Respiratory: bilateral: diminished, rhonchi - Cardiovascular Rhythm: regular Heart Sounds: Present: S1 & S2. Absent: gallop, rub - Extremities Extremities: no ischemia, No edema, Full ROM - Abdominal General gastrointestinal: soft, non-tender, non-distended, normal bowel sounds - Integumentary Integumentary: Present: clear, warm, dry - Neurologic Neurologic: CNII-XII intact, moves all extremities Results - Labs CBC & Chem 7: 05/02/16 04:48 05/02/16 04:48 Labs: Laboratory Last Values WBC 17.2 K/mm3 (4.5-11.0) H 05/02/16 04:48 RBC 3.09 M/mm3 (3.65-5.03) L 05/02/16 04:48 Hgb 8.1 gm/dl (11.8-15.2) L 05/02/16 04:48 Hct 25.5 % (35.5-45.6) L 05/02/16 04:48 MCV 83 fl (84-94) L 05/02/16 04:48 MCH 26 pg (28-32) L 05/02/16 04:48 MCHC 32 % (32-34) 05/02/16 04:48 RDW 17.3 % (13.2-15.2) H 05/02/16 04:48 Plt Count 507 K/mm3 (140-440) H 05/02/16 04:48 Lymph % (Auto) 8.0 % (13.4-35.0) L 05/02/16 04:48 Jerome % (Auto) 13.6 % (0.0-7.3) H 05/02/16 04:48 Eos % (Auto) 0.2 % (0.0-4.3) 05/02/16 04:48 Baso % (Auto) 0.7 % (0.0-1.8) 05/02/16 04:48 Lymph # 1.4 K/mm3 (1.2-5.4) 05/02/16 04:48 Jerome # 2.3 K/mm3 (0.0-0.8) H 05/02/16 04:48 Eos # 0.0 K/mm3 (0.0-0.4) 05/02/16 04:48 Baso # 0.1 K/mm3 (0.0-0.1) 05/02/16 04:48 Add Manual Diff Complete 04/17/16 12:17 Total Counted 100 04/17/16 12:17 Seg Neutrophils % 77.5 % (40.0-70.0) H 05/02/16 04:48 Seg Neuts % (Manual) 61.0 % (40.0-70.0) 04/17/16 12:17 Band Neutrophils % 27.0 % 04/17/16 12:17 Lymphocytes % (Manual) 3.0 % (13.4-35.0) L 04/17/16 12:17 Reactive Lymphs % (Man) 0 % 04/17/16 12:17 Monocytes % (Manual) 4.0 % (0.0-7.3) 04/17/16 12:17 Eosinophils % (Manual) 0 % (0.0-4.3) 04/17/16 12:17 Basophils % (Manual) 0 % (0.0-1.8) 04/17/16 12:17 Metamyelocytes % 1.0 % 04/17/16 12:17 Myelocytes % 1.0 % 04/17/16 12:17 Promyelocytes % 3.0 % 04/17/16 12:17 Blast Cells % 0 % 04/17/16 12:17 Nucleated RBC % Not Reportable 04/17/16 12:17 Seg Neutrophils # 13.4 K/mm3 (1.8-7.7) H 05/02/16 04:48 Seg Neutrophils # Man 10.1 K/mm3 (1.8-7.7) H 04/17/16 12:17 Band Neutrophils # 4.5 K/mm3 04/17/16 12:17 Lymphocytes # (Manual) 0.5 K/mm3 (1.2-5.4) L 04/17/16 12:17 Abs React Lymphs (Man) 0.0 K/mm3 04/17/16 12:17 Monocytes # (Manual) 0.7 K/mm3 (0.0-0.8) 04/17/16 12:17 Eosinophils # (Manual) 0.0 K/mm3 (0.0-0.4) 04/17/16 12:17 Basophils # (Manual) 0.0 K/mm3 (0.0-0.1) 04/17/16 12:17 Metamyelocytes # 0.2 K/mm3 04/17/16 12:17 Myelocytes # 0.2 K/mm3 04/17/16 12:17 Promyelocytes # 0.5 K/mm3 04/17/16 12:17 Blast Cells # 0.0 K/mm3 04/17/16 12:17 WBC Morphology Not Reportable 04/17/16 12:17 Hypersegmented Neuts Not Reportable 04/17/16 12:17 Hyposegmented Neuts Not Reportable 04/17/16 12:17 Hypogranular Neuts Not Reportable 04/17/16 12:17 Smudge Cells Not Reportable 04/17/16 12:17 Toxic Granulation Not Reportable 04/17/16 12:17 Toxic Vacuolation Not Reportable 04/17/16 12:17 Dohle Bodies Not Reportable 04/17/16 12:17 Pelger-Huet Anomaly Not Reportable 04/17/16 12:17 Corina Rods Not Reportable 04/17/16 12:17 Platelet Estimate Appears normal 04/17/16 12:17 Clumped Platelets Not Reportable 04/17/16 12:17 Plt Clumps, EDTA Not Reportable 04/17/16 12:17 Large Platelets Not Reportable 04/17/16 12:17 Giant Platelets Not Reportable 04/17/16 12:17 Platelet Satelliting Not Reportable 04/17/16 12:17 Plt Morphology Comment Not Reportable 04/17/16 12:17 RBC Morphology Not Reportable 04/17/16 12:17 Dimorphic RBCs Not Reportable 04/17/16 12:17 Polychromasia Few 04/17/16 12:17 Hypochromasia Not Reportable 04/17/16 12:17 Poikilocytosis Not Reportable 04/17/16 12:17 Anisocytosis 1+ 04/17/16 12:17 Microcytosis Few 04/17/16 12:17 Macrocytosis Not Reportable 04/17/16 12:17 Spherocytes Not Reportable 04/17/16 12:17 Pappenheimer Bodies Not Reportable 04/17/16 12:17 Sickle Cells Not Reportable 04/17/16 12:17 Target Cells Not Reportable 04/17/16 12:17 Tear Drop Cells Not Reportable 04/17/16 12:17 Ovalocytes Not Reportable 04/17/16 12:17 Helmet Cells Not Reportable 04/17/16 12:17 [place] Bodies Not Reportable 04/17/16 12:17 [place] Rings Not Reportable 04/17/16 12:17 [place] Cells Not Reportable 04/17/16 12:17 Bite Cells Not Reportable 04/17/16 12:17 Crenated Cell Not Reportable 04/17/16 12:17 Elliptocytes Not Reportable 04/17/16 12:17 Acanthocytes (Spur) Not Reportable 04/17/16 12:17 Rouleaux Not Reportable 04/17/16 12:17 Hemoglobin C Crystals Not Reportable 04/17/16 12:17 Schistocytes Not Reportable 04/17/16 12:17 Malaria parasites Not Reportable 04/17/16 12:17 Percent Retic 3.68 % (0.78-2.58) H 04/29/16 10:16 Gideon Bodies Not Reportable 04/17/16 12:17 Hem Pathologist Commnt No 04/17/16 12:17 PT 15.9 Sec. (12.2-14.9) H 04/23/16 10:45 INR 1.28 (0.87-1.13) H 04/23/16 10:45 APTT 42.1 Sec. (24.2-36.6) H 04/04/16 09:55 Heparin Anti-Xa Level 0.19 U.I./ml (0.3-0.7) L 05/02/16 04:48 POC ABG pH 7.519 (7.35-7.45) H 04/30/16 04:32 POC ABG pCO2 33.6 (35-45) L 04/30/16 04:32 POC ABG pO2 79 (80-105) L 04/30/16 04:32 POC ABG HCO3 27.4 04/30/16 04:32 POC ABG Total CO2 28 04/30/16 04:32 POC ABG O2 Sat 97 04/30/16 04:32 POC ABG Base Excess 5 04/30/16 04:32 VBG pH 7.418 (7.320-7.420) 03/24/16 14:00 FiO2 25 % 04/30/16 04:32 Sodium 149 mmol/L (137-145) H 05/02/16 04:48 Potassium 4.2 mmol/L (3.6-5.0) 05/02/16 04:48 Chloride 109.9 mmol/L (98-107) H 05/02/16 04:48 Carbon Dioxide 27 mmol/L (22-30) 05/02/16 04:48 Anion Gap 16 mmol/L 05/02/16 04:48 BUN 24 mg/dL (9-20) H 05/02/16 04:48 Creatinine 0.8 mg/dL (0.8-1.5) 05/02/16 04:48 Estimated GFR > 60 ml/min 05/02/16 04:48 BUN/Creatinine Ratio 30.00 % 05/02/16 04:48 Glucose 224 mg/dL (75-100) H 05/02/16 04:48 POC Glucose 253 (70-105) H 05/02/16 05:42 Hemoglobin A1c 9.6 % (4-6) H 03/24/16 14:00 Lactic Acid 1.6 mmol/L (0.7-2.0) 04/17/16 12:17 Calcium 8.2 mg/dL (8.4-10.2) L 05/02/16 04:48 Phosphorus 2.3 mg/dL (2.5-4.5) L D 03/30/16 04:00 Magnesium 1.9 mg/dL (1.7-2.3) 03/30/16 04:00 Iron 10 ug/dL (49-181) L 04/29/16 10:16 TIBC 138 mcg/dL (250-450) L 04/29/16 10:16 Ferritin 336.4 ng/mL (13.0-400.0) 04/29/16 10:16 Total Bilirubin < 0.2 mg/dL (0.1-1.2) 04/27/16 04:21 AST 18 units/L (5-40) 04/27/16 04:21 ALT 39 units/L (7-56) 04/27/16 04:21 Alkaline Phosphatase 103 units/L (35-129) 04/27/16 04:21 Lactate Dehydrogenase 204 units/L (91-180) H 04/29/16 10:16 Total Creatine Kinase 356 units/L (55-170) H 03/28/16 13:29 Troponin T < 0.010 ng/mL (0.00-0.029) 03/28/16 13:29 NT-Pro-B Natriuret Pep 897.9 pg/mL (0-900) 04/03/16 04:10 Serum Total Protein 7.1 g/dL (6.1-8.1) 03/25/16 13:00 Total Protein 6.0 g/dL (6.3-8.2) L 04/27/16 04:21 Albumin 2.0 g/dL (3.9-5) L 04/27/16 04:21 Albumin/Globulin Ratio 0.5 % 04/27/16 04:21 Nghml-7-Awmrutvzs See scanned report 03/31/16 12:20 Bixcn-8-Sishabqpc See scanned report 03/31/16 12:20 Beta Globulins See scanned report 03/31/16 12:20 Dgwa-4-Vjfhwzqyvvloh 2.46 mg/L (<=2.51) 03/25/16 13:00 Gamma Globulins See scanned report 03/31/16 12:20 Abnorm Protein Band 1 see below (()) 03/25/16 13:00 PEP Interpretation See scanned report 03/31/16 12:20 Triglycerides 88 mg/dL (2-149) 03/24/16 17:58 Cholesterol 221 mg/dL (50-199) H 03/24/16 17:58 LDL Cholesterol Direct 146 mg/dL (50-130) H 03/24/16 17:58 HDL Cholesterol 58 mg/dL (40-59) 03/24/16 17:58 Cholesterol/HDL Ratio 3.81 % 03/24/16 17:58 Vitamin B12 1005 pg/mL (211-911) H 04/29/16 10:16 Folate 12.78 ng/mL (7.3-26.0) 04/29/16 10:16 Urine Color Yellow (Yellow) 03/24/16 14:27 Urine Turbidity Clear (Clear) 03/24/16 14:27 Urine pH 5.0 (5.0-7.0) 03/24/16 14:27 Ur Specific [place] 1.017 (1.003-1.030) 03/24/16 14:27 Urine Protein <15 mg/dl mg/dL (Negative) 03/24/16 14:27 Urine Glucose (UA) >=500 mg/dL (Negative) 03/24/16 14:27 Urine Ketones Neg mg/dL (Negative) 03/24/16 14:27 Urine Blood Sm (Negative) 03/24/16 14:27 Urine Nitrite Neg (Negative) 03/24/16 14:27 Urine Bilirubin Neg (Negative) 03/24/16 14:27 Urine Urobilinogen < 2.0 mg/dL (<2.0) 03/24/16 14:27 Ur Leukocyte Esterase Neg (Negative) 03/24/16 14:27 Urine WBC (Auto) 2.0 /HPF (0.0-6.0) 03/24/16 14:27 Urine RBC (Auto) < 1.0 /HPF (0.0-6.0) 03/24/16 14:27 U Epithel Cells (Auto) 4.0 /HPF (0-13.0) 03/24/16 14:27 Hyaline Casts 1 /LPF 03/24/16 14:27 Urine Mucus Few /HPF 03/24/16 14:27 Ur Random Creatinine See scanned report 03/31/16 12:20 U Random Total Protein See scanned report 03/31/16 12:20 Urine Creatinine 85.5 mg/dL (0.1-20.0) H 04/20/16 11:50 Protein/Creatinin Ratio See scanned report 03/31/16 12:20 Urine Sodium 17 mEq/L 04/20/16 11:50 U Abnormal Prot Band 1 See scanned report 03/31/16 12:20 U Abnormal Prot Band 2 See scanned report 03/31/16 12:20 U Abnormal Prot Band 3 See scanned report 03/31/16 12:20 Ketones 1.0 mg/dL (0.2-2.8) 03/24/16 14:00 Blood Type A POSITIVE 04/29/16 10:05 Antibody Screen Negative 04/29/16 10:05 Crossmatch See Detail 04/29/16 10:05
--- NOTE | 2016-05-02 12:55 | Progress Note ---
Assessment and Plan - Patient Problems (1) Acute renal failure Diagnosis Date: 04/26/16 Current Visit: Yes Status: Acute (2) Acute respiratory failure Diagnosis Date: 04/26/16 Current Visit: Yes Status: Acute (3) Altered mental status Current Visit: Yes Status: Acute Qualifiers: Qualified Code(s): R41.82 - Altered mental status, unspecified (4) CAD (coronary artery disease) Diagnosis Date: 04/26/16 Current Visit: Yes Status: Acute (5) Diabetes Current Visit: Yes Status: Acute (6) Encephalopathy Current Visit: Yes Status: Acute (7) Acute ST elevation myocardial infarction (STEMI) Current Visit: No Status: Acute Qualifiers: Qualified Code(s): I21.02 - ST elevation (STEMI) myocardial infarction involving left anterior descending coronary artery (8) CHF (congestive heart failure), NYHA class III Current Visit: Yes Status: Acute Subjective Principal diagnosis: CVA, acute respiratory failure Interval history: on vent, weaning attempted yesterday Objective Vital Signs - 12hr 05/02/16 05/02/16 05/02/16 01:00 01:10 01:20 Temperature Pulse Rate 109 H Pulse Rate [ 110 H 106 H Anterior Bilateral Throughout] Respiratory Rate Respiratory 21 20 Rate [Anterior Bilateral Throughout] Blood Pressure 144/79 O2 Sat by Pulse 100 Oximetry 05/02/16 05/02/16 05/02/16 01:30 02:00 02:03 Temperature Pulse Rate 107 H 106 H 107 H Pulse Rate [ Anterior Bilateral Throughout] Respiratory Rate Respiratory Rate [Anterior Bilateral Throughout] Blood Pressure 120/68 126/68 126/68 O2 Sat by Pulse 100 100 100 Oximetry 05/02/16 05/02/16 05/02/16 02:11 02:30 03:00 Temperature Pulse Rate 111 H 109 H 109 H Pulse Rate [ Anterior Bilateral Throughout] Respiratory Rate Respiratory Rate [Anterior Bilateral Throughout] Blood Pressure 126/68 122/75 117/74 O2 Sat by Pulse 100 100 100 Oximetry 05/02/16 05/02/16 05/02/16 03:11 03:17 03:30 Temperature Pulse Rate 113 H 110 H 113 H Pulse Rate [ Anterior Bilateral Throughout] Respiratory Rate Respiratory Rate [Anterior Bilateral Throughout] Blood Pressure 117/74 140/82 138/81 O2 Sat by Pulse 100 100 100 Oximetry 05/02/16 05/02/16 05/02/16 03:35 04:00 04:18 Temperature Pulse Rate 113 H 114 H 114 H Pulse Rate [ Anterior Bilateral Throughout] Respiratory 19 Rate Respiratory Rate [Anterior Bilateral Throughout] Blood Pressure 138/81 139/83 130/79 O2 Sat by Pulse 100 100 99 Oximetry 05/02/16 05/02/16 05/02/16 04:29 04:30 04:41 Temperature 103 F H Pulse Rate 111 H 112 H 116 H Pulse Rate [ Anterior Bilateral Throughout] Respiratory 17 Rate Respiratory Rate [Anterior Bilateral Throughout] Blood Pressure 130/75 130/75 130/75 O2 Sat by Pulse 100 100 99 Oximetry 05/02/16 05/02/16 05/02/16 04:48 04:57 05:00 Temperature Pulse Rate 113 H 111 H Pulse Rate [ Anterior Bilateral Throughout] Respiratory 17 Rate Respiratory Rate [Anterior Bilateral Throughout] Blood Pressure 130/79 133/81 O2 Sat by Pulse 100 100 Oximetry 05/02/16 05/02/16 05/02/16 05:30 05:44 05:48 Temperature Pulse Rate 104 H Pulse Rate [ Anterior Bilateral Throughout] Respiratory 19 22 Rate Respiratory Rate [Anterior Bilateral Throughout] Blood Pressure 124/71 O2 Sat by Pulse 99 Oximetry 05/02/16 05/02/16 05/02/16 05:55 06:00 06:03 Temperature Pulse Rate 104 H 104 H 103 H Pulse Rate [ Anterior Bilateral Throughout] Respiratory Rate Respiratory Rate [Anterior Bilateral Throughout] Blood Pressure 113/68 118/67 118/67 O2 Sat by Pulse 100 100 100 Oximetry 05/02/16 05/02/16 05/02/16 06:04 06:11 06:30 Temperature Pulse Rate 103 H 102 H Pulse Rate [ Anterior Bilateral Throughout] Respiratory 15 Rate Respiratory Rate [Anterior Bilateral Throughout] Blood Pressure 118/67 118/65 O2 Sat by Pulse 100 100 Oximetry 05/02/16 05/02/16 05/02/16 07:00 07:30 07:56 Temperature Pulse Rate 96 H 98 H 98 H Pulse Rate [ 97 H Anterior Bilateral Throughout] Respiratory Rate Respiratory 20 Rate [Anterior Bilateral Throughout] Blood Pressure 98/60 108/62 122/71 O2 Sat by Pulse 100 100 100 Oximetry 05/02/16 05/02/16 05/02/16 08:00 08:01 08:11 Temperature 101.9 F H Pulse Rate 98 H 97 H Pulse Rate [ 96 H Anterior Bilateral Throughout] Respiratory Rate Respiratory 20 Rate [Anterior Bilateral Throughout] Blood Pressure 123/69 123/69 O2 Sat by Pulse 96 100 Oximetry 05/02/16 05/02/16 05/02/16 08:30 08:57 09:00 Temperature Pulse Rate 97 H 99 H 100 H Pulse Rate [ Anterior Bilateral Throughout] Respiratory 19 20 Rate Respiratory Rate [Anterior Bilateral Throughout] Blood Pressure 110/65 126/69 126/69 O2 Sat by Pulse 100 100 100 Oximetry 05/02/16 05/02/16 05/02/16 09:28 09:29 09:30 Temperature Pulse Rate 102 H 102 H 98 H Pulse Rate [ Anterior Bilateral Throughout] Respiratory Rate Respiratory Rate [Anterior Bilateral Throughout] Blood Pressure 117/69 117/69 118/65 O2 Sat by Pulse 100 Oximetry 05/02/16 05/02/16 05/02/16 09:34 10:00 10:30 Temperature 99 F Pulse Rate 86 83 Pulse Rate [ Anterior Bilateral Throughout] Respiratory 20 Rate Respiratory Rate [Anterior Bilateral Throughout] Blood Pressure 107/60 107/62 O2 Sat by Pulse 100 100 Oximetry 05/02/16 05/02/16 05/02/16 11:00 11:30 11:39 Temperature Pulse Rate 79 79 102 H Pulse Rate [ Anterior Bilateral Throughout] Respiratory 16 20 Rate Respiratory Rate [Anterior Bilateral Throughout] Blood Pressure 91/52 98/56 117/69 O2 Sat by Pulse 100 100 100 Oximetry 05/02/16 05/02/16 11:52 12:00 Temperature 99.9 F H Pulse Rate Pulse Rate [ Anterior Bilateral Throughout] Respiratory Rate Respiratory Rate [Anterior Bilateral Throughout] Blood Pressure O2 Sat by Pulse 97 Oximetry Constitutional: no acute distress, lethargic, other (awake but not following commands on vent ac) Eyes: non-icteric ENT: other (tracheotomy) Neck: supple Effort: normal Ascultation: Bilateral: clear, rhonchi (occasional) Percussion: Bilateral: not dull Cardiovascular: regular rate and rhythm Gastrointestinal: normoactive bowel sounds, soft, non-tender Extremities: no cyanosis, no edema Neurologic: other (GCS 4) CBC and BMP: 05/02/16 04:48 05/02/16 04:48 ABG, PT/INR, D-dimer: ABG POC ABG pH 7.519 (7.35-7.45) H 04/30/16 04:32 POC ABG pCO2 33.6 (35-45) L 04/30/16 04:32 POC ABG pO2 79 (80-105) L 04/30/16 04:32 POC ABG HCO3 27.4 04/30/16 04:32 POC ABG Total CO2 28 04/30/16 04:32 POC ABG O2 Sat 97 04/30/16 04:32 PT/INR, D-dimer PT 15.9 Sec. (12.2-14.9) H 04/23/16 10:45 INR 1.28 (0.87-1.13) H 04/23/16 10:45 Abnormal lab findings: Abnormal Labs 03/24/16 03/24/16 03/24/16 17:58 20:25 23:23 WBC RBC Hgb Hct MCV MCH MCHC RDW Plt Count Lymph % (Auto) [place] % (Auto) Lymph # [place] # Baso # Seg Neutrophils % Seg Neuts % (Manual) Lymphocytes % (Manual) Seg Neutrophils # Seg Neutrophils # Man Lymphocytes # (Manual) Monocytes # (Manual) Percent Retic PT INR APTT Heparin Anti-Xa Level POC ABG pH POC ABG pCO2 POC ABG pO2 Sodium 169 H* Potassium 3.5 L Chloride 130.3 H Carbon Dioxide BUN 28 H Creatinine 1.8 H Glucose POC Glucose 112 H Calcium Phosphorus Iron TIBC Lactate Dehydrogenase Total Creatine Kinase NT-Pro-B Natriuret Pep Total Protein Albumin Zrhpc-3-Bivwrefnr Krlzb-2-Icambipdr Beta Globulins PEP Interpretation Cholesterol 221 H LDL Cholesterol Direct 146 H Vitamin B12 Urine Creatinine Crossmatch 03/25/16 03/25/16 03/25/16 05:56 05:56 05:56 WBC 21.3 H RBC 6.32 H Hgb 16.7 H Hct 52.7 H MCV 83 L MCH 27 L MCHC RDW Plt Count Lymph % (Auto) [place] % (Auto) Lymph # [place] # Baso # Seg Neutrophils % Seg Neuts % (Manual) 91.0 H Lymphocytes % (Manual) 4.0 L Seg Neutrophils # Seg Neutrophils # Man 19.4 H Lymphocytes # (Manual) 0.9 L Monocytes # (Manual) 0.9 H Percent Retic PT INR APTT Heparin Anti-Xa Level POC ABG pH POC ABG pCO2 POC ABG pO2 Sodium 172 H* Potassium 3.5 L Chloride 130.4 H Carbon Dioxide BUN 29 H Creatinine 1.8 H Glucose 187 H POC Glucose Calcium Phosphorus Iron TIBC Lactate Dehydrogenase 460 H Total Creatine Kinase NT-Pro-B Natriuret Pep Total Protein Albumin Rmujd-0-Zdhkqncpw Bzyzj-7-Aawdchivp Beta Globulins PEP Interpretation Cholesterol LDL Cholesterol Direct Vitamin B12 Urine Creatinine Crossmatch 03/25/16 03/25/16 03/25/16 07:55 12:19 13:00 WBC RBC Hgb Hct MCV MCH MCHC RDW Plt Count Lymph % (Auto) [place] % (Auto) Lymph # [place] # Baso # Seg Neutrophils % Seg Neuts % (Manual) Lymphocytes % (Manual) Seg Neutrophils # Seg Neutrophils # Man Lymphocytes # (Manual) Monocytes # (Manual) Percent Retic PT INR APTT Heparin Anti-Xa Level POC ABG pH POC ABG pCO2 POC ABG pO2 Sodium Potassium Chloride Carbon Dioxide BUN Creatinine Glucose POC Glucose 231 H 314 H Calcium Phosphorus Iron TIBC Lactate Dehydrogenase Total Creatine Kinase NT-Pro-B Natriuret Pep Total Protein Albumin 3.4 L Xqicz-8-Cyburtenr 0.4 H Ivzjh-7-Wmzzakivz 1.1 H Beta Globulins 0.6 H PEP Interpretation see below H Cholesterol LDL Cholesterol Direct Vitamin B12 Urine Creatinine Crossmatch 03/25/16 03/25/16 03/26/16 16:41 22:45 08:32 WBC RBC Hgb Hct MCV MCH MCHC RDW Plt Count Lymph % (Auto) [place] % (Auto) Lymph # [place] # Baso # Seg Neutrophils % Seg Neuts % (Manual) Lymphocytes % (Manual) Seg Neutrophils # Seg Neutrophils # Man Lymphocytes # (Manual) Monocytes # (Manual) Percent Retic PT INR APTT Heparin Anti-Xa Level POC ABG pH POC ABG pCO2 POC ABG pO2 Sodium Potassium Chloride Carbon Dioxide BUN Creatinine Glucose POC Glucose 444 H 326 H 360 H Calcium Phosphorus Iron TIBC Lactate Dehydrogenase Total Creatine Kinase NT-Pro-B Natriuret Pep Total Protein Albumin Fibnn-1-Wuveqljpj Zeeps-7-Vacakewnj Beta Globulins PEP Interpretation Cholesterol LDL Cholesterol Direct Vitamin B12 Urine Creatinine Crossmatch 03/26/16 03/26/16 03/26/16 12:38 15:33 15:47 WBC RBC Hgb Hct MCV MCH MCHC RDW Plt Count Lymph % (Auto) [place] % (Auto) Lymph # [place] # Baso # Seg Neutrophils % Seg Neuts % (Manual) Lymphocytes % (Manual) Seg Neutrophils # Seg Neutrophils # Man Lymphocytes # (Manual) Monocytes # (Manual) Percent Retic PT INR APTT Heparin Anti-Xa Level POC ABG pH 7.511 H POC ABG pCO2 26.5 L POC ABG pO2 70 L Sodium Potassium Chloride Carbon Dioxide BUN Creatinine Glucose POC Glucose 280 H 174 H Calcium Phosphorus Iron TIBC Lactate Dehydrogenase Total Creatine Kinase NT-Pro-B Natriuret Pep Total Protein Albumin Gliuc-6-Dmdbeuoyb Qbdgq-2-Svckqhlat Beta Globulins PEP Interpretation Cholesterol LDL Cholesterol Direct Vitamin B12 Urine Creatinine Crossmatch 03/26/16 03/26/16 03/26/16 16:47 16:47 18:51 WBC 14.0 H RBC 5.17 H Hgb Hct MCV MCH 26 L MCHC 31 L RDW Plt Count 139 L Lymph % (Auto) [place] % (Auto) Lymph # [place] # Baso # Seg Neutrophils % Seg Neuts % (Manual) Lymphocytes % (Manual) Seg Neutrophils # Seg Neutrophils # Man Lymphocytes # (Manual) Monocytes # (Manual) Percent Retic PT INR APTT Heparin Anti-Xa Level POC ABG pH POC ABG pCO2 33.9 L POC ABG pO2 150 H Sodium 164 H* Potassium 3.4 L Chloride 128.5 H Carbon Dioxide BUN 30 H Creatinine 2.2 H Glucose 121 H POC Glucose Calcium 8.1 L Phosphorus Iron TIBC Lactate Dehydrogenase Total Creatine Kinase NT-Pro-B Natriuret Pep Total Protein Albumin Kjsde-8-Ogeovskrw Daola-7-Wtfnfucot Beta Globulins PEP Interpretation Cholesterol LDL Cholesterol Direct Vitamin B12 Urine Creatinine Crossmatch 03/27/16 03/27/16 03/27/16 02:19 05:47 06:02 WBC RBC Hgb Hct MCV MCH MCHC RDW Plt Count Lymph % (Auto) [place] % (Auto) Lymph # [place] # Baso # Seg Neutrophils % Seg Neuts % (Manual) Lymphocytes % (Manual) Seg Neutrophils # Seg Neutrophils # Man Lymphocytes # (Manual) Monocytes # (Manual) Percent Retic PT INR APTT Heparin Anti-Xa Level POC ABG pH POC ABG pCO2 27.3 L 30.3 L POC ABG pO2 50 L 112 H Sodium 158 H Potassium Chloride 126.7 H Carbon Dioxide 20 L BUN 25 H Creatinine 1.7 H Glucose POC Glucose Calcium 7.0 L Phosphorus Iron TIBC Lactate Dehydrogenase Total Creatine Kinase NT-Pro-B Natriuret Pep Total Protein Albumin Gnjgp-0-Zyrfczudx Ckubo-6-Cflsxiwjx Beta Globulins PEP Interpretation Cholesterol LDL Cholesterol Direct Vitamin B12 Urine Creatinine Crossmatch 03/27/16 03/27/16 03/27/16 07:51 09:20 11:45 WBC 14.2 H RBC Hgb Hct MCV 83 L MCH 27 L MCHC RDW Plt Count 113 L Lymph % (Auto) [place] % (Auto) Lymph # [place] # Baso # Seg Neutrophils % Seg Neuts % (Manual) Lymphocytes % (Manual) Seg Neutrophils # Seg Neutrophils # Man Lymphocytes # (Manual) Monocytes # (Manual) Percent Retic PT INR APTT Heparin Anti-Xa Level POC ABG pH POC ABG pCO2 POC ABG pO2 Sodium Potassium Chloride Carbon Dioxide BUN Creatinine Glucose POC Glucose 124 H 241 H Calcium Phosphorus Iron TIBC Lactate Dehydrogenase Total Creatine Kinase NT-Pro-B Natriuret Pep Total Protein Albumin Uqyur-5-Mgpanngvb Sefnw-7-Jxmpdwygj Beta Globulins PEP Interpretation Cholesterol LDL Cholesterol Direct Vitamin B12 Urine Creatinine Crossmatch 03/27/16 03/27/16 03/28/16 16:39 22:03 03:29 WBC RBC Hgb Hct MCV MCH MCHC RDW Plt Count Lymph % (Auto) [place] % (Auto) Lymph # [place] # Baso # Seg Neutrophils % Seg Neuts % (Manual) Lymphocytes % (Manual) Seg Neutrophils # Seg Neutrophils # Man Lymphocytes # (Manual) Monocytes # (Manual) Percent Retic PT INR APTT Heparin Anti-Xa Level POC ABG pH POC ABG pCO2 POC ABG pO2 Sodium Potassium Chloride Carbon Dioxide BUN Creatinine Glucose POC Glucose 266 H 167 H 241 H Calcium Phosphorus Iron TIBC Lactate Dehydrogenase Total Creatine Kinase NT-Pro-B Natriuret Pep Total Protein Albumin Jyrgf-6-Lmpdtzvje Bbyxs-3-Mdtqzfjyt Beta Globulins PEP Interpretation Cholesterol LDL Cholesterol Direct Vitamin B12 Urine Creatinine Crossmatch 03/28/16 03/28/16 03/28/16 05:00 05:00 05:00 WBC RBC Hgb Hct MCV 83 L MCH 27 L MCHC RDW Plt Count 106 L Lymph % (Auto) [place] % (Auto) 10.1 H Lymph # [place] # 1.0 H Baso # Seg Neutrophils % 75.1 H Seg Neuts % (Manual) Lymphocytes % (Manual) Seg Neutrophils # Seg Neutrophils # Man Lymphocytes # (Manual) Monocytes # (Manual) Percent Retic PT INR APTT Heparin Anti-Xa Level POC ABG pH POC ABG pCO2 POC ABG pO2 Sodium 147 H D Potassium 3.1 L D Chloride 112.3 H Carbon Dioxide 21 L BUN Creatinine Glucose 208 H POC Glucose Calcium 7.0 L Phosphorus 2.2 L Iron TIBC Lactate Dehydrogenase Total Creatine Kinase NT-Pro-B Natriuret Pep Total Protein Albumin Hydtu-4-Lfwvnfnvd Vztwm-5-Abgeaxnct Beta Globulins PEP Interpretation Cholesterol LDL Cholesterol Direct Vitamin B12 Urine Creatinine Crossmatch 03/28/16 03/28/16 03/28/16 05:14 08:41 10:56 WBC RBC Hgb Hct MCV MCH MCHC RDW Plt Count Lymph % (Auto) [place] % (Auto) Lymph # [place] # Baso # Seg Neutrophils % Seg Neuts % (Manual) Lymphocytes % (Manual) Seg Neutrophils # Seg Neutrophils # Man Lymphocytes # (Manual) Monocytes # (Manual) Percent Retic PT INR APTT Heparin Anti-Xa Level POC ABG pH 7.457 H POC ABG pCO2 29.7 L 27.7 L POC ABG pO2 Sodium Potassium Chloride Carbon Dioxide BUN Creatinine Glucose POC Glucose 228 H Calcium Phosphorus Iron TIBC Lactate Dehydrogenase Total Creatine Kinase NT-Pro-B Natriuret Pep Total Protein Albumin Osmyn-0-Ejdosfomx Qiczh-9-Opylrgagw Beta Globulins PEP Interpretation Cholesterol LDL Cholesterol Direct Vitamin B12 Urine Creatinine Crossmatch 03/28/16 03/28/16 03/28/16 11:37 13:29 16:22 WBC RBC Hgb Hct MCV MCH MCHC RDW Plt Count Lymph % (Auto) [place] % (Auto) Lymph # [place] # Baso # Seg Neutrophils % Seg Neuts % (Manual) Lymphocytes % (Manual) Seg Neutrophils # Seg Neutrophils # Man Lymphocytes # (Manual) Monocytes # (Manual) Percent Retic PT INR APTT Heparin Anti-Xa Level POC ABG pH POC ABG pCO2 POC ABG pO2 Sodium Potassium Chloride Carbon Dioxide BUN Creatinine Glucose POC Glucose 226 H 200 H Calcium Phosphorus Iron TIBC Lactate Dehydrogenase Total Creatine Kinase 356 H NT-Pro-B Natriuret Pep Total Protein Albumin Uxfyt-3-Xfniaryqy Jeopz-3-Ggbrtziqw Beta Globulins PEP Interpretation Cholesterol LDL Cholesterol Direct Vitamin B12 Urine Creatinine Crossmatch 03/28/16 03/29/16 03/29/16 21:48 04:50 04:50 WBC RBC Hgb 11.5 L Hct 35.3 L MCV 81 L MCH 26 L MCHC RDW Plt Count 97 L Lymph % (Auto) [place] % (Auto) 11.7 H Lymph # [place] # 1.1 H Baso # Seg Neutrophils % Seg Neuts % (Manual) Lymphocytes % (Manual) Seg Neutrophils # Seg Neutrophils # Man Lymphocytes # (Manual) Monocytes # (Manual) Percent Retic PT INR APTT Heparin Anti-Xa Level POC ABG pH POC ABG pCO2 POC ABG pO2 Sodium 136 L D Potassium 3.3 L Chloride Carbon Dioxide 20 L BUN Creatinine Glucose 386 H POC Glucose 188 H Calcium 6.8 L Phosphorus 1.6 L D Iron TIBC Lactate Dehydrogenase Total Creatine Kinase NT-Pro-B Natriuret Pep Total Protein Albumin Mzkje-8-Pbtvbsblf Pabri-7-Rgsybpumy Beta Globulins PEP Interpretation Cholesterol LDL Cholesterol Direct Vitamin B12 Urine Creatinine Crossmatch 03/29/16 03/29/16 03/29/16 08:10 11:12 16:09 WBC RBC Hgb Hct MCV MCH MCHC RDW Plt Count Lymph % (Auto) [place] % (Auto) Lymph # [place] # Baso # Seg Neutrophils % Seg Neuts % (Manual) Lymphocytes % (Manual) Seg Neutrophils # Seg Neutrophils # Man Lymphocytes # (Manual) Monocytes # (Manual) Percent Retic PT INR APTT Heparin Anti-Xa Level POC ABG pH POC ABG pCO2 POC ABG pO2 Sodium Potassium Chloride Carbon Dioxide BUN Creatinine Glucose POC Glucose 230 H 180 H 46 L Calcium Phosphorus Iron TIBC Lactate Dehydrogenase Total Creatine Kinase NT-Pro-B Natriuret Pep Total Protein Albumin Taghm-6-Qkpouyikb Fyply-0-Injxsuktj Beta Globulins PEP Interpretation Cholesterol LDL Cholesterol Direct Vitamin B12 Urine Creatinine Crossmatch 03/29/16 03/29/16 03/30/16 16:12 18:15 02:53 WBC RBC Hgb Hct MCV MCH MCHC RDW Plt Count Lymph % (Auto) [place] % (Auto) Lymph # [place] # Baso # Seg Neutrophils % Seg Neuts % (Manual) Lymphocytes % (Manual) Seg Neutrophils # Seg Neutrophils # Man Lymphocytes # (Manual) Monocytes # (Manual) Percent Retic PT INR APTT Heparin Anti-Xa Level POC ABG pH POC ABG pCO2 POC ABG pO2 Sodium Potassium Chloride Carbon Dioxide BUN Creatinine Glucose POC Glucose 52 L 118 H 130 H Calcium Phosphorus Iron TIBC Lactate Dehydrogenase Total Creatine Kinase NT-Pro-B Natriuret Pep Total Protein Albumin Kpjwk-5-Xojnukuab Luakw-3-Nywbidvpa Beta Globulins PEP Interpretation Cholesterol LDL Cholesterol Direct Vitamin B12 Urine Creatinine Crossmatch 03/30/16 03/30/16 03/30/16 04:00 04:00 05:29 WBC RBC Hgb Hct MCV 81 L MCH 26 L MCHC RDW Plt Count 116 L Lymph % (Auto) 10.8 L [place] % (Auto) 13.1 H Lymph # 1.0 L [place] # 1.3 H Baso # Seg Neutrophils % 74.2 H Seg Neuts % (Manual) Lymphocytes % (Manual) Seg Neutrophils # Seg Neutrophils # Man Lymphocytes # (Manual) Monocytes # (Manual) Percent Retic PT INR APTT Heparin Anti-Xa Level POC ABG pH 7.522 H POC ABG pCO2 22.7 L POC ABG pO2 137 H Sodium 147 H D Potassium Chloride 115.5 H Carbon Dioxide 20 L BUN Creatinine Glucose 116 H POC Glucose Calcium 7.6 L Phosphorus 2.3 L D Iron TIBC Lactate Dehydrogenase Total Creatine Kinase NT-Pro-B Natriuret Pep Total Protein Albumin Pvgfe-5-Angamrgdp Ewygx-1-Hlsxgiddl Beta Globulins PEP Interpretation Cholesterol LDL Cholesterol Direct Vitamin B12 Urine Creatinine Crossmatch 03/30/16 03/30/16 03/30/16 05:47 08:05 08:59 WBC RBC Hgb Hct MCV MCH MCHC RDW Plt Count Lymph % (Auto) [place] % (Auto) Lymph # [place] # Baso # Seg Neutrophils % Seg Neuts % (Manual) Lymphocytes % (Manual) Seg Neutrophils # Seg Neutrophils # Man Lymphocytes # (Manual) Monocytes # (Manual) Percent Retic PT INR APTT Heparin Anti-Xa Level POC ABG pH POC ABG pCO2 26.2 L POC ABG pO2 115 H Sodium Potassium Chloride Carbon Dioxide BUN Creatinine Glucose POC Glucose 138 H 171 H Calcium Phosphorus Iron TIBC Lactate Dehydrogenase Total Creatine Kinase NT-Pro-B Natriuret Pep Total Protein Albumin Bsawt-5-Ziktupsnq Gckoy-9-Dgpqfsepn Beta Globulins PEP Interpretation Cholesterol LDL Cholesterol Direct Vitamin B12 Urine Creatinine Crossmatch 03/30/16 03/30/16 03/30/16 12:11 12:11 16:39 WBC RBC Hgb Hct MCV MCH MCHC RDW Plt Count Lymph % (Auto) [place] % (Auto) Lymph # [place] # Baso # Seg Neutrophils % Seg Neuts % (Manual) Lymphocytes % (Manual) Seg Neutrophils # Seg Neutrophils # Man Lymphocytes # (Manual) Monocytes # (Manual) Percent Retic PT INR APTT Heparin Anti-Xa Level POC ABG pH 7.476 H POC ABG pCO2 29.0 L POC ABG pO2 Sodium Potassium Chloride Carbon Dioxide BUN Creatinine Glucose POC Glucose 142 H 59 L Calcium Phosphorus Iron TIBC Lactate Dehydrogenase Total Creatine Kinase NT-Pro-B Natriuret Pep Total Protein Albumin Ghskm-8-Gfyuqvgfh Muscv-7-Duqlbosma Beta Globulins PEP Interpretation Cholesterol LDL Cholesterol Direct Vitamin B12 Urine Creatinine Crossmatch 03/30/16 03/30/16 03/31/16 18:41 21:59 05:02 WBC RBC Hgb Hct MCV MCH MCHC RDW Plt Count Lymph % (Auto) [place] % (Auto) Lymph # [place] # Baso # Seg Neutrophils % Seg Neuts % (Manual) Lymphocytes % (Manual) Seg Neutrophils # Seg Neutrophils # Man Lymphocytes # (Manual) Monocytes # (Manual) Percent Retic PT INR APTT Heparin Anti-Xa Level POC ABG pH 7.519 H POC ABG pCO2 21.8 L POC ABG pO2 142 H Sodium Potassium Chloride Carbon Dioxide BUN Creatinine Glucose POC Glucose 145 H 154 H Calcium Phosphorus Iron TIBC Lactate Dehydrogenase Total Creatine Kinase NT-Pro-B Natriuret Pep Total Protein Albumin Zzhvs-7-Nmnyidviv Cevth-2-Hppqrguiu Beta Globulins PEP Interpretation Cholesterol LDL Cholesterol Direct Vitamin B12 Urine Creatinine Crossmatch 03/31/16 03/31/16 03/31/16 05:15 05:15 05:15 WBC 13.4 H RBC 5.21 H Hgb Hct MCV 81 L MCH 26 L MCHC RDW Plt Count Lymph % (Auto) 9.5 L [place] % (Auto) 14.0 H Lymph # [place] # 1.9 H Baso # Seg Neutrophils % 75.0 H Seg Neuts % (Manual) Lymphocytes % (Manual) Seg Neutrophils # 10.1 H Seg Neutrophils # Man Lymphocytes # (Manual) Monocytes # (Manual) Percent Retic PT INR APTT Heparin Anti-Xa Level POC ABG pH POC ABG pCO2 POC ABG pO2 Sodium Potassium Chloride 108.5 H Carbon Dioxide 19 L BUN Creatinine Glucose 188 H POC Glucose Calcium Phosphorus Iron TIBC Lactate Dehydrogenase Total Creatine Kinase NT-Pro-B Natriuret Pep 1089 H Total Protein Albumin Lcgty-6-[place] Ibpci-4-Coozqgguu Beta Globulins PEP Interpretation Cholesterol LDL Cholesterol Direct Vitamin B12 Urine Creatinine Crossmatch 03/31/16 03/31/16 03/31/16 07:23 11:12 15:20 WBC RBC Hgb Hct MCV MCH MCHC RDW Plt Count Lymph % (Auto) [place] % (Auto) Lymph # [place] # Baso # Seg Neutrophils % Seg Neuts % (Manual) Lymphocytes % (Manual) Seg Neutrophils # Seg Neutrophils # Man Lymphocytes # (Manual) Monocytes # (Manual) Percent Retic PT INR APTT Heparin Anti-Xa Level POC ABG pH POC ABG pCO2 POC ABG pO2 Sodium Potassium Chloride Carbon Dioxide BUN Creatinine Glucose POC Glucose 233 H 228 H 208 H Calcium Phosphorus Iron TIBC Lactate Dehydrogenase Total Creatine Kinase NT-Pro-B Natriuret Pep Total Protein Albumin Nuisz-6-Inkctcilk Kzbwm-7-[place] Beta Globulins PEP Interpretation Cholesterol LDL Cholesterol Direct Vitamin B12 Urine Creatinine Crossmatch 03/31/16 04/01/16 04/01/16 21:27 04:41 05:35 WBC 12.1 H RBC Hgb Hct MCV 81 L MCH 26 L MCHC RDW Plt Count Lymph % (Auto) 8.5 L [place] % (Auto) 14.0 H Lymph # 1.0 L [place] # 1.7 H Baso # Seg Neutrophils % 76.2 H Seg Neuts % (Manual) Lymphocytes % (Manual) Seg Neutrophils # 9.2 H Seg Neutrophils # Man Lymphocytes # (Manual) Monocytes # (Manual) Percent Retic PT INR APTT Heparin Anti-Xa Level POC ABG pH 7.455 H POC ABG pCO2 31.0 L POC ABG pO2 Sodium Potassium Chloride Carbon Dioxide BUN Creatinine Glucose POC Glucose 162 H Calcium Phosphorus Iron TIBC Lactate Dehydrogenase Total Creatine Kinase NT-Pro-B Natriuret Pep Total Protein Albumin [place]-7-Ugmanzsxg Eerxc-5-Cxpkufkgf Beta Globulins PEP Interpretation Cholesterol LDL Cholesterol Direct Vitamin B12 Urine Creatinine Crossmatch 04/01/16 04/01/16 04/01/16 05:35 08:44 12:49 WBC RBC Hgb Hct MCV MCH MCHC RDW Plt Count Lymph % (Auto) [place] % (Auto) Lymph # [place] # Baso # Seg Neutrophils % Seg Neuts % (Manual) Lymphocytes % (Manual) Seg Neutrophils # Seg Neutrophils # Man Lymphocytes # (Manual) Monocytes # (Manual) Percent Retic PT INR APTT Heparin Anti-Xa Level POC ABG pH POC ABG pCO2 POC ABG pO2 Sodium Potassium Chloride Carbon Dioxide BUN Creatinine Glucose 256 H POC Glucose 257 H 279 H Calcium 8.0 L Phosphorus Iron TIBC Lactate Dehydrogenase Total Creatine Kinase NT-Pro-B Natriuret Pep 1205 H Total Protein Albumin Uwehh-6-Tqkjprlmr Iowax-6-Yfdkirvuu Beta Globulins PEP Interpretation Cholesterol LDL Cholesterol Direct Vitamin B12 Urine Creatinine Crossmatch 04/01/16 04/02/16 04/02/16 18:12 00:42 04:17 WBC RBC Hgb Hct MCV MCH MCHC RDW Plt Count Lymph % (Auto) [place] % (Auto) Lymph # [place] # Baso # Seg Neutrophils % Seg Neuts % (Manual) Lymphocytes % (Manual) Seg Neutrophils # Seg Neutrophils # Man Lymphocytes # (Manual) Monocytes # (Manual) Percent Retic PT INR APTT Heparin Anti-Xa Level POC ABG pH 7.582 H POC ABG pCO2 26.8 L POC ABG pO2 Sodium Potassium Chloride Carbon Dioxide BUN Creatinine Glucose POC Glucose 168 H 282 H Calcium Phosphorus Iron TIBC Lactate Dehydrogenase Total Creatine Kinase NT-Pro-B Natriuret Pep Total Protein Albumin Inysc-6-Acwcqyzck Etetm-6-Dtzhbozjk Beta Globulins PEP Interpretation Cholesterol LDL Cholesterol Direct Vitamin B12 Urine Creatinine Crossmatch 04/02/16 04/02/16 04/02/16 05:00 05:00 06:27 WBC 12.4 H RBC Hgb Hct MCV 81 L MCH 26 L MCHC RDW Plt Count Lymph % (Auto) 6.4 L [place] % (Auto) 13.3 H Lymph # 0.8 L [place] # 1.7 H Baso # Seg Neutrophils % 79.4 H Seg Neuts % (Manual) Lymphocytes % (Manual) Seg Neutrophils # 9.9 H Seg Neutrophils # Man Lymphocytes # (Manual) Monocytes # (Manual) Percent Retic PT INR APTT Heparin Anti-Xa Level POC ABG pH POC ABG pCO2 POC ABG pO2 Sodium 146 H Potassium Chloride Carbon Dioxide BUN Creatinine Glucose 334 H POC Glucose 317 H Calcium 8.0 L Phosphorus Iron TIBC Lactate Dehydrogenase Total Creatine Kinase NT-Pro-B Natriuret Pep Total Protein Albumin Wnotc-7-Kirlutgkg Ixhnb-0-Kczjcjzgz Beta Globulins PEP Interpretation Cholesterol LDL Cholesterol Direct Vitamin B12 Urine Creatinine Crossmatch 04/02/16 04/02/16 04/02/16 11:51 13:10 17:24 WBC RBC Hgb Hct MCV MCH MCHC RDW Plt Count Lymph % (Auto) [place] % (Auto) Lymph # [place] # Baso # Seg Neutrophils % Seg Neuts % (Manual) Lymphocytes % (Manual) Seg Neutrophils # Seg Neutrophils # Man Lymphocytes # (Manual) Monocytes # (Manual) Percent Retic PT INR APTT Heparin Anti-Xa Level POC ABG pH 7.518 H POC ABG pCO2 POC ABG pO2 Sodium Potassium Chloride Carbon Dioxide BUN Creatinine Glucose POC Glucose 278 H 195 H Calcium Phosphorus Iron TIBC Lactate Dehydrogenase Total Creatine Kinase NT-Pro-B Natriuret Pep Total Protein Albumin Umwjy-9-Acqwfeecq Zmtyv-6-Zhaufjylg Beta Globulins PEP Interpretation Cholesterol LDL Cholesterol Direct Vitamin B12 Urine Creatinine Crossmatch 04/03/16 04/03/16 04/03/16 00:18 04:10 04:10 WBC 14.3 H RBC Hgb Hct MCV 81 L MCH 26 L MCHC RDW Plt Count Lymph % (Auto) 9.0 L [place] % (Auto) 10.7 H Lymph # [place] # 1.5 H Baso # 0.2 H Seg Neutrophils % 78.5 H Seg Neuts % (Manual) Lymphocytes % (Manual) Seg Neutrophils # 11.3 H Seg Neutrophils # Man Lymphocytes # (Manual) Monocytes # (Manual) Percent Retic PT INR APTT Heparin Anti-Xa Level POC ABG pH POC ABG pCO2 POC ABG pO2 Sodium 148 H Potassium Chloride 108.1 H Carbon Dioxide BUN 21 H Creatinine Glucose 227 H POC Glucose 144 H Calcium 8.2 L Phosphorus Iron TIBC Lactate Dehydrogenase Total Creatine Kinase NT-Pro-B Natriuret Pep Total Protein Albumin Tgzyh-3-Eyjiropau Otqdi-0-Ikywbuvsh Beta Globulins PEP Interpretation Cholesterol LDL Cholesterol Direct Vitamin B12 Urine Creatinine Crossmatch 04/03/16 04/03/16 04/04/16 11:14 17:10 04:00 WBC 14.5 H RBC Hgb Hct MCV 81 L MCH 26 L MCHC RDW Plt Count Lymph % (Auto) 7.2 L [place] % (Auto) 7.6 H Lymph # 1.0 L [place] # 1.1 H Baso # Seg Neutrophils % 84.5 H Seg Neuts % (Manual) Lymphocytes % (Manual) Seg Neutrophils # 12.3 H Seg Neutrophils # Man Lymphocytes # (Manual) Monocytes # (Manual) Percent Retic PT INR APTT Heparin Anti-Xa Level POC ABG pH POC ABG pCO2 POC ABG pO2 Sodium Potassium Chloride Carbon Dioxide BUN Creatinine Glucose POC Glucose 267 H 212 H Calcium Phosphorus Iron TIBC Lactate Dehydrogenase Total Creatine Kinase NT-Pro-B Natriuret Pep Total Protein Albumin Lqwgn-6-Jrrwyxfgv Rirdt-7-Fuywizitk Beta Globulins PEP Interpretation Cholesterol LDL Cholesterol Direct Vitamin B12 Urine Creatinine Crossmatch 04/04/16 04/04/16 04/04/16 05:00 09:55 09:55 WBC RBC Hgb 11.5 L Hct MCV MCH MCHC RDW Plt Count Lymph % (Auto) [place] % (Auto) Lymph # [place] # Baso # Seg Neutrophils % Seg Neuts % (Manual) Lymphocytes % (Manual) Seg Neutrophils # Seg Neutrophils # Man Lymphocytes # (Manual) Monocytes # (Manual) Percent Retic PT INR APTT 42.1 H Heparin Anti-Xa Level POC ABG pH POC ABG pCO2 POC ABG pO2 Sodium 146 H Potassium Chloride Carbon Dioxide BUN 22 H Creatinine Glucose 128 H POC Glucose Calcium Phosphorus Iron TIBC Lactate Dehydrogenase Total Creatine Kinase NT-Pro-B Natriuret Pep Total Protein Albumin Fxgjg-6-Cmlhrxszr Ghlxe-9-Omcektxtv Beta Globulins PEP Interpretation Cholesterol LDL Cholesterol Direct Vitamin B12 Urine Creatinine Crossmatch 04/04/16 04/04/16 04/04/16 11:45 17:49 17:55 WBC RBC Hgb Hct MCV MCH MCHC RDW Plt Count Lymph % (Auto) [place] % (Auto) Lymph # [place] # Baso # Seg Neutrophils % Seg Neuts % (Manual) Lymphocytes % (Manual) Seg Neutrophils # Seg Neutrophils # Man Lymphocytes # (Manual) Monocytes # (Manual) Percent Retic PT INR APTT Heparin Anti-Xa Level 1.19 H POC ABG pH POC ABG pCO2 POC ABG pO2 Sodium Potassium Chloride Carbon Dioxide BUN Creatinine Glucose POC Glucose 231 H 186 H Calcium Phosphorus Iron TIBC Lactate Dehydrogenase Total Creatine Kinase NT-Pro-B Natriuret Pep Total Protein Albumin Vabov-6-Bawklovro Ocgne-1-Pmtlvjojx Beta Globulins PEP Interpretation Cholesterol LDL Cholesterol Direct Vitamin B12 Urine Creatinine Crossmatch 04/05/16 04/05/16 04/05/16 00:35 05:32 05:42 WBC RBC Hgb Hct MCV MCH MCHC RDW Plt Count Lymph % (Auto) [place] % (Auto) Lymph # [place] # Baso # Seg Neutrophils % Seg Neuts % (Manual) Lymphocytes % (Manual) Seg Neutrophils # Seg Neutrophils # Man Lymphocytes # (Manual) Monocytes # (Manual) Percent Retic PT INR APTT Heparin Anti-Xa Level POC ABG pH 7.491 H POC ABG pCO2 POC ABG pO2 Sodium Potassium Chloride Carbon Dioxide BUN Creatinine Glucose POC Glucose 192 H 242 H Calcium Phosphorus Iron TIBC Lactate Dehydrogenase Total Creatine Kinase NT-Pro-B Natriuret Pep Total Protein Albumin Xntml-4-Hfqjifkep Lndaz-5-Shwowbiab Beta Globulins PEP Interpretation Cholesterol LDL Cholesterol Direct Vitamin B12 Urine Creatinine Crossmatch 04/05/16 04/05/16 04/05/16 06:20 06:20 12:19 WBC 13.9 H RBC Hgb 11.6 L Hct MCV 81 L MCH 26 L MCHC RDW Plt Count Lymph % (Auto) 9.6 L [place] % (Auto) 8.7 H Lymph # [place] # 1.2 H Baso # Seg Neutrophils % 80.9 H Seg Neuts % (Manual) Lymphocytes % (Manual) Seg Neutrophils # 11.3 H Seg Neutrophils # Man Lymphocytes # (Manual) Monocytes # (Manual) Percent Retic PT INR APTT Heparin Anti-Xa Level POC ABG pH POC ABG pCO2 POC ABG pO2 Sodium 148 H Potassium Chloride Carbon Dioxide BUN 23 H Creatinine Glucose 242 H POC Glucose 187 H Calcium Phosphorus Iron TIBC Lactate Dehydrogenase Total Creatine Kinase NT-Pro-B Natriuret Pep Total Protein Albumin Vlspn-0-Dmoomhwgd Mbwhr-6-Fdgmobpzo Beta Globulins PEP Interpretation Cholesterol LDL Cholesterol Direct Vitamin B12 Urine Creatinine Crossmatch 04/05/16 04/05/16 04/06/16 17:10 23:45 05:23 WBC 13.0 H RBC Hgb Hct MCV 82 L MCH 26 L MCHC 31 L RDW Plt Count Lymph % (Auto) 6.7 L [place] % (Auto) 8.3 H Lymph # 0.9 L [place] # 1.1 H Baso # Seg Neutrophils % 84.6 H Seg Neuts % (Manual) Lymphocytes % (Manual) Seg Neutrophils # 11.0 H Seg Neutrophils # Man Lymphocytes # (Manual) Monocytes # (Manual) Percent Retic PT INR APTT Heparin Anti-Xa Level POC ABG pH POC ABG pCO2 POC ABG pO2 Sodium Potassium Chloride Carbon Dioxide BUN Creatinine Glucose POC Glucose 169 H 202 H Calcium Phosphorus Iron TIBC Lactate Dehydrogenase Total Creatine Kinase NT-Pro-B Natriuret Pep Total Protein Albumin Asofn-2-Woermqtqp Ikkvp-3-Rhyvnyydx Beta Globulins PEP Interpretation Cholesterol LDL Cholesterol Direct Vitamin B12 Urine Creatinine Crossmatch 04/06/16 04/06/16 04/06/16 05:23 05:23 06:11 WBC RBC Hgb Hct MCV MCH MCHC RDW Plt Count Lymph % (Auto) [place] % (Auto) Lymph # [place] # Baso # Seg Neutrophils % Seg Neuts % (Manual) Lymphocytes % (Manual) Seg Neutrophils # Seg Neutrophils # Man Lymphocytes # (Manual) Monocytes # (Manual) Percent Retic PT INR APTT Heparin Anti-Xa Level 0.21 L POC ABG pH POC ABG pCO2 POC ABG pO2 Sodium 153 H Potassium Chloride 111.3 H Carbon Dioxide BUN 22 H Creatinine Glucose 62 L POC Glucose 56 L Calcium Phosphorus Iron TIBC Lactate Dehydrogenase Total Creatine Kinase NT-Pro-B Natriuret Pep Total Protein Albumin Qomkn-8-Ukynwsium Xvrxp-3-Ddmuljghh Beta Globulins PEP Interpretation Cholesterol LDL Cholesterol Direct Vitamin B12 Urine Creatinine Crossmatch 04/06/16 04/06/16 04/06/16 06:52 11:36 14:58 WBC RBC Hgb Hct MCV MCH MCHC RDW Plt Count Lymph % (Auto) [place] % (Auto) Lymph # [place] # Baso # Seg Neutrophils % Seg Neuts % (Manual) Lymphocytes % (Manual) Seg Neutrophils # Seg Neutrophils # Man Lymphocytes # (Manual) Monocytes # (Manual) Percent Retic PT INR APTT Heparin Anti-Xa Level POC ABG pH POC ABG pCO2 POC ABG pO2 Sodium Potassium Chloride Carbon Dioxide BUN Creatinine Glucose POC Glucose 206 H 139 H 147 H Calcium Phosphorus Iron TIBC Lactate Dehydrogenase Total Creatine Kinase NT-Pro-B Natriuret Pep Total Protein Albumin Xkubd-5-Bewmrbexr Dzxpg-4-Oqhaeqqia Beta Globulins PEP Interpretation Cholesterol LDL Cholesterol Direct Vitamin B12 Urine Creatinine Crossmatch 04/06/16 04/06/16 04/06/16 16:03 21:18 23:53 WBC RBC Hgb Hct MCV MCH MCHC RDW Plt Count Lymph % (Auto) [place] % (Auto) Lymph # [place] # Baso # Seg Neutrophils % Seg Neuts % (Manual) Lymphocytes % (Manual) Seg Neutrophils # Seg Neutrophils # Man Lymphocytes # (Manual) Monocytes # (Manual) Percent Retic PT INR APTT Heparin Anti-Xa Level POC ABG pH POC ABG pCO2 POC ABG pO2 Sodium Potassium Chloride Carbon Dioxide BUN Creatinine Glucose POC Glucose 154 H 293 H 301 H Calcium Phosphorus Iron TIBC Lactate Dehydrogenase Total Creatine Kinase NT-Pro-B Natriuret Pep Total Protein Albumin Qxhnt-9-Cldmlpzno Wjkuy-6-Zfvlxtaxs Beta Globulins PEP Interpretation Cholesterol LDL Cholesterol Direct Vitamin B12 Urine Creatinine Crossmatch 04/07/16 04/07/16 04/07/16 02:30 05:11 05:11 WBC 12.5 H RBC Hgb 11.5 L Hct MCV 82 L MCH 26 L MCHC 31 L RDW Plt Count Lymph % (Auto) [place] % (Auto) Lymph # [place] # Baso # Seg Neutrophils % Seg Neuts % (Manual) Lymphocytes % (Manual) Seg Neutrophils # Seg Neutrophils # Man Lymphocytes # (Manual) Monocytes # (Manual) Percent Retic PT INR APTT Heparin Anti-Xa Level 0.11 L POC ABG pH POC ABG pCO2 POC ABG pO2 Sodium 150 H Potassium Chloride 109.5 H Carbon Dioxide BUN 28 H Creatinine Glucose 264 H POC Glucose Calcium Phosphorus Iron TIBC Lactate Dehydrogenase Total Creatine Kinase NT-Pro-B Natriuret Pep Total Protein Albumin Slsaz-7-Mjtxeeaxr Yryri-6-Fidyfqzvf Beta Globulins PEP Interpretation Cholesterol LDL Cholesterol Direct Vitamin B12 Urine Creatinine Crossmatch 04/07/16 04/07/16 04/07/16 06:46 10:18 11:50 WBC RBC Hgb Hct MCV MCH MCHC RDW Plt Count Lymph % (Auto) [place] % (Auto) Lymph # [place] # Baso # Seg Neutrophils % Seg Neuts % (Manual) Lymphocytes % (Manual) Seg Neutrophils # Seg Neutrophils # Man Lymphocytes # (Manual) Monocytes # (Manual) Percent Retic PT 15.1 H INR 1.20 H APTT Heparin Anti-Xa Level POC ABG pH POC ABG pCO2 POC ABG pO2 Sodium Potassium Chloride Carbon Dioxide BUN Creatinine Glucose POC Glucose 259 H 288 H Calcium Phosphorus Iron TIBC Lactate Dehydrogenase Total Creatine Kinase NT-Pro-B Natriuret Pep Total Protein Albumin Txhke-5-Znssrkgsb Xgcua-0-Cxmwbxmyy Beta Globulins PEP Interpretation Cholesterol LDL Cholesterol Direct Vitamin B12 Urine Creatinine Crossmatch 04/07/16 04/08/16 04/08/16 17:58 01:25 06:49 WBC RBC Hgb Hct MCV MCH MCHC RDW Plt Count Lymph % (Auto) [place] % (Auto) Lymph # [place] # Baso # Seg Neutrophils % Seg Neuts % (Manual) Lymphocytes % (Manual) Seg Neutrophils # Seg Neutrophils # Man Lymphocytes # (Manual) Monocytes # (Manual) Percent Retic PT INR APTT Heparin Anti-Xa Level POC ABG pH POC ABG pCO2 POC ABG pO2 Sodium 156 H Potassium Chloride 114.7 H Carbon Dioxide BUN 33 H Creatinine Glucose 169 H POC Glucose 330 H 146 H Calcium Phosphorus Iron TIBC Lactate Dehydrogenase Total Creatine Kinase NT-Pro-B Natriuret Pep Total Protein Albumin Kllbk-7-Lbpkcmvsk Twphd-6-Voxideveo Beta Globulins PEP Interpretation Cholesterol LDL Cholesterol Direct Vitamin B12 Urine Creatinine Crossmatch 04/08/16 04/08/16 04/08/16 07:34 10:28 10:28 WBC RBC Hgb Hct MCV MCH MCHC RDW Plt Count Lymph % (Auto) [place] % (Auto) Lymph # [place] # Baso # Seg Neutrophils % Seg Neuts % (Manual) Lymphocytes % (Manual) Seg Neutrophils # Seg Neutrophils # Man Lymphocytes # (Manual) Monocytes # (Manual) Percent Retic PT 15.5 H INR 1.24 H APTT Heparin Anti-Xa Level 0.24 L POC ABG pH POC ABG pCO2 POC ABG pO2 Sodium Potassium Chloride Carbon Dioxide BUN Creatinine Glucose POC Glucose 232 H Calcium Phosphorus Iron TIBC Lactate Dehydrogenase Total Creatine Kinase NT-Pro-B Natriuret Pep Total Protein Albumin Hqgcl-8-Xvmubzwqm Zofms-4-Mnyersfza Beta Globulins PEP Interpretation Cholesterol LDL Cholesterol Direct Vitamin B12 Urine Creatinine Crossmatch 04/08/16 04/08/16 04/09/16 11:36 15:38 00:01 WBC RBC Hgb Hct MCV MCH MCHC RDW Plt Count Lymph % (Auto) [place] % (Auto) Lymph # [place] # Baso # Seg Neutrophils % Seg Neuts % (Manual) Lymphocytes % (Manual) Seg Neutrophils # Seg Neutrophils # Man Lymphocytes # (Manual) Monocytes # (Manual) Percent Retic PT INR APTT Heparin Anti-Xa Level POC ABG pH POC ABG pCO2 POC ABG pO2 Sodium Potassium Chloride Carbon Dioxide BUN Creatinine Glucose POC Glucose 193 H 163 H 180 H Calcium Phosphorus Iron TIBC Lactate Dehydrogenase Total Creatine Kinase NT-Pro-B Natriuret Pep Total Protein Albumin Srdao-1-Elagylhkl Oxswr-8-Fiqpeavpf Beta Globulins PEP Interpretation Cholesterol LDL Cholesterol Direct Vitamin B12 Urine Creatinine Crossmatch 04/09/16 04/09/16 04/09/16 06:17 06:42 06:42 WBC RBC Hgb Hct MCV MCH MCHC RDW Plt Count Lymph % (Auto) [place] % (Auto) Lymph # [place] # Baso # Seg Neutrophils % Seg Neuts % (Manual) Lymphocytes % (Manual) Seg Neutrophils # Seg Neutrophils # Man Lymphocytes # (Manual) Monocytes # (Manual) Percent Retic PT 17.4 H INR 1.43 H APTT Heparin Anti-Xa Level POC ABG pH POC ABG pCO2 POC ABG pO2 Sodium 153 H Potassium Chloride 113.2 H Carbon Dioxide BUN 29 H Creatinine Glucose 301 H POC Glucose 249 H Calcium 8.3 L Phosphorus Iron TIBC Lactate Dehydrogenase Total Creatine Kinase NT-Pro-B Natriuret Pep Total Protein Albumin Fwgip-4-Rsioiojpc Qwtdd-5-Rcmonlmkc Beta Globulins PEP Interpretation Cholesterol LDL Cholesterol Direct Vitamin B12 Urine Creatinine Crossmatch 04/09/16 04/09/16 04/09/16 07:37 11:26 15:45 WBC RBC Hgb Hct MCV MCH MCHC RDW Plt Count Lymph % (Auto) [place] % (Auto) Lymph # [place] # Baso # Seg Neutrophils % Seg Neuts % (Manual) Lymphocytes % (Manual) Seg Neutrophils # Seg Neutrophils # Man Lymphocytes # (Manual) Monocytes # (Manual) Percent Retic PT INR APTT Heparin Anti-Xa Level POC ABG pH POC ABG pCO2 POC ABG pO2 Sodium Potassium Chloride Carbon Dioxide BUN Creatinine Glucose POC Glucose 283 H 306 H 354 H Calcium Phosphorus Iron TIBC Lactate Dehydrogenase Total Creatine Kinase NT-Pro-B Natriuret Pep Total Protein Albumin Siuwq-6-Ezpbtmizu Rkkfv-3-Axeofxbfn Beta Globulins PEP Interpretation Cholesterol LDL Cholesterol Direct Vitamin B12 Urine Creatinine Crossmatch 04/10/16 04/10/16 04/10/16 00:53 07:15 07:34 WBC RBC Hgb 11.3 L Hct MCV MCH MCHC RDW Plt Count Lymph % (Auto) [place] % (Auto) Lymph # [place] # Baso # Seg Neutrophils % Seg Neuts % (Manual) Lymphocytes % (Manual) Seg Neutrophils # Seg Neutrophils # Man Lymphocytes # (Manual) Monocytes # (Manual) Percent Retic PT INR APTT Heparin Anti-Xa Level POC ABG pH POC ABG pCO2 POC ABG pO2 Sodium Potassium Chloride Carbon Dioxide BUN Creatinine Glucose POC Glucose 323 H 311 H Calcium Phosphorus Iron TIBC Lactate Dehydrogenase Total Creatine Kinase NT-Pro-B Natriuret Pep Total Protein Albumin Gfxfl-3-Qnlyktzhd Kcsll-6-Ngpkwgnpb Beta Globulins PEP Interpretation Cholesterol LDL Cholesterol Direct Vitamin B12 Urine Creatinine Crossmatch 04/10/16 04/10/16 04/10/16 07:34 07:34 11:25 WBC RBC Hgb Hct MCV MCH MCHC RDW Plt Count Lymph % (Auto) [place] % (Auto) Lymph # [place] # Baso # Seg Neutrophils % Seg Neuts % (Manual) Lymphocytes % (Manual) Seg Neutrophils # Seg Neutrophils # Man Lymphocytes # (Manual) Monocytes # (Manual) Percent Retic PT 17.3 H INR 1.42 H APTT Heparin Anti-Xa Level POC ABG pH POC ABG pCO2 POC ABG pO2 Sodium 158 H Potassium Chloride 118.6 H Carbon Dioxide BUN 30 H Creatinine Glucose 330 H POC Glucose 335 H Calcium 8.3 L Phosphorus Iron TIBC Lactate Dehydrogenase Total Creatine Kinase NT-Pro-B Natriuret Pep Total Protein Albumin Oydve-8-Njkqeiftr Nsrus-8-Epykharqe Beta Globulins PEP Interpretation Cholesterol LDL Cholesterol Direct Vitamin B12 Urine Creatinine Crossmatch 04/10/16 04/11/16 04/11/16 16:21 00:29 07:47 WBC RBC Hgb Hct MCV MCH MCHC RDW Plt Count Lymph % (Auto) [place] % (Auto) Lymph # [place] # Baso # Seg Neutrophils % Seg Neuts % (Manual) Lymphocytes % (Manual) Seg Neutrophils # Seg Neutrophils # Man Lymphocytes # (Manual) Monocytes # (Manual) Percent Retic PT 18.4 H INR 1.53 H APTT Heparin Anti-Xa Level POC ABG pH POC ABG pCO2 POC ABG pO2 Sodium Potassium Chloride Carbon Dioxide BUN Creatinine Glucose POC Glucose 230 H 162 H Calcium Phosphorus Iron TIBC Lactate Dehydrogenase Total Creatine Kinase NT-Pro-B Natriuret Pep Total Protein Albumin Mxcdd-3-Zcmtsyeiz Tewpy-2-Pbgkziwcs Beta Globulins PEP Interpretation Cholesterol LDL Cholesterol Direct Vitamin B12 Urine Creatinine Crossmatch 04/11/16 04/11/16 04/12/16 07:47 11:22 04:54 WBC RBC Hgb 11.0 L Hct 35.0 L MCV MCH MCHC RDW Plt Count Lymph % (Auto) [place] % (Auto) Lymph # [place] # Baso # Seg Neutrophils % Seg Neuts % (Manual) Lymphocytes % (Manual) Seg Neutrophils # Seg Neutrophils # Man Lymphocytes # (Manual) Monocytes # (Manual) Percent Retic PT INR APTT Heparin Anti-Xa Level POC ABG pH POC ABG pCO2 POC ABG pO2 Sodium 155 H Potassium Chloride 114.5 H Carbon Dioxide BUN 23 H Creatinine Glucose 157 H POC Glucose 229 H Calcium Phosphorus Iron TIBC Lactate Dehydrogenase Total Creatine Kinase NT-Pro-B Natriuret Pep Total Protein Albumin Mdewe-9-Oliyuzekl Rdqtq-1-Ecasiussz Beta Globulins PEP Interpretation Cholesterol LDL Cholesterol Direct Vitamin B12 Urine Creatinine Crossmatch 04/12/16 04/12/16 04/12/16 04:54 04:54 05:57 WBC RBC Hgb Hct MCV MCH MCHC RDW Plt Count Lymph % (Auto) [place] % (Auto) Lymph # [place] # Baso # Seg Neutrophils % Seg Neuts % (Manual) Lymphocytes % (Manual) Seg Neutrophils # Seg Neutrophils # Man Lymphocytes # (Manual) Monocytes # (Manual) Percent Retic PT 22.5 H INR 1.98 H APTT Heparin Anti-Xa Level 0.19 L POC ABG pH POC ABG pCO2 POC ABG pO2 Sodium 156 H Potassium Chloride 115.4 H Carbon Dioxide BUN 23 H Creatinine Glucose 143 H POC Glucose 194 H Calcium Phosphorus Iron TIBC Lactate Dehydrogenase Total Creatine Kinase NT-Pro-B Natriuret Pep Total Protein Albumin Vchax-2-Upllwidaj Ixpek-5-Vglpejpri Beta Globulins PEP Interpretation Cholesterol LDL Cholesterol Direct Vitamin B12 Urine Creatinine Crossmatch 04/12/16 04/12/16 04/12/16 12:34 19:01 23:30 WBC RBC Hgb Hct MCV MCH MCHC RDW Plt Count Lymph % (Auto) [place] % (Auto) Lymph # [place] # Baso # Seg Neutrophils % Seg Neuts % (Manual) Lymphocytes % (Manual) Seg Neutrophils # Seg Neutrophils # Man Lymphocytes # (Manual) Monocytes # (Manual) Percent Retic PT INR APTT Heparin Anti-Xa Level POC ABG pH POC ABG pCO2 POC ABG pO2 Sodium Potassium Chloride Carbon Dioxide BUN Creatinine Glucose POC Glucose 291 H 235 H 154 H Calcium Phosphorus Iron TIBC Lactate Dehydrogenase Total Creatine Kinase NT-Pro-B Natriuret Pep Total Protein Albumin Cxdke-8-Xfxstnicz Voygf-5-Viiqbrcau Beta Globulins PEP Interpretation Cholesterol LDL Cholesterol Direct Vitamin B12 Urine Creatinine Crossmatch 04/13/16 04/13/16 04/13/16 05:16 05:16 05:28 WBC RBC Hgb Hct MCV MCH MCHC RDW Plt Count Lymph % (Auto) [place] % (Auto) Lymph # [place] # Baso # Seg Neutrophils % Seg Neuts % (Manual) Lymphocytes % (Manual) Seg Neutrophils # Seg Neutrophils # Man Lymphocytes # (Manual) Monocytes # (Manual) Percent Retic PT 27.0 H INR 2.49 H APTT Heparin Anti-Xa Level 0.20 L POC ABG pH POC ABG pCO2 POC ABG pO2 Sodium 150 H Potassium Chloride 110.5 H Carbon Dioxide BUN 21 H Creatinine Glucose 159 H POC Glucose 177 H Calcium Phosphorus Iron TIBC Lactate Dehydrogenase Total Creatine Kinase NT-Pro-B Natriuret Pep Total Protein Albumin Cmnsr-1-Edpgushgz Escgn-5-[place] Beta Globulins PEP Interpretation Cholesterol LDL Cholesterol Direct Vitamin B12 Urine Creatinine Crossmatch 04/13/16 04/13/16 04/14/16 11:30 17:54 00:44 WBC RBC Hgb Hct MCV MCH MCHC RDW Plt Count Lymph % (Auto) [place] % (Auto) Lymph # [place] # Baso # Seg Neutrophils % Seg Neuts % (Manual) Lymphocytes % (Manual) Seg Neutrophils # Seg Neutrophils # Man Lymphocytes # (Manual) Monocytes # (Manual) Percent Retic PT INR APTT Heparin Anti-Xa Level POC ABG pH POC ABG pCO2 POC ABG pO2 Sodium Potassium Chloride Carbon Dioxide BUN Creatinine Glucose POC Glucose 181 H 251 H 237 H Calcium Phosphorus Iron TIBC Lactate Dehydrogenase Total Creatine Kinase NT-Pro-B Natriuret Pep Total Protein Albumin Eakxx-0-Bxtdjvolv Ayyka-0-Ppbrhlxed Beta Globulins PEP Interpretation Cholesterol LDL Cholesterol Direct Vitamin B12 Urine Creatinine Crossmatch 04/14/16 04/14/16 04/14/16 05:00 05:42 05:42 WBC RBC Hgb Hct MCV MCH MCHC RDW Plt Count Lymph % (Auto) [place] % (Auto) Lymph # [place] # Baso # Seg Neutrophils % Seg Neuts % (Manual) Lymphocytes % (Manual) Seg Neutrophils # Seg Neutrophils # Man Lymphocytes # (Manual) Monocytes # (Manual) Percent Retic PT 30.3 H INR 2.88 H APTT Heparin Anti-Xa Level 0.27 L POC ABG pH POC ABG pCO2 POC ABG pO2 Sodium Potassium 3.5 L Chloride Carbon Dioxide BUN Creatinine Glucose 160 H POC Glucose Calcium 8.2 L Phosphorus Iron TIBC Lactate Dehydrogenase Total Creatine Kinase NT-Pro-B Natriuret Pep Total Protein Albumin Crepj-0-Jvjvwpobq Okrhr-8-Yddjfrimk Beta Globulins PEP Interpretation Cholesterol LDL Cholesterol Direct Vitamin B12 Urine Creatinine Crossmatch 04/14/16 04/14/16 04/14/16 06:02 06:16 09:18 WBC 12.3 H RBC Hgb 11.4 L Hct MCV 82 L MCH 26 L MCHC RDW Plt Count Lymph % (Auto) [place] % (Auto) Lymph # [place] # Baso # Seg Neutrophils % Seg Neuts % (Manual) Lymphocytes % (Manual) Seg Neutrophils # Seg Neutrophils # Man Lymphocytes # (Manual) Monocytes # (Manual) Percent Retic PT INR APTT Heparin Anti-Xa Level POC ABG pH POC ABG pCO2 POC ABG pO2 Sodium Potassium Chloride Carbon Dioxide BUN Creatinine Glucose POC Glucose 156 H 164 H Calcium Phosphorus Iron TIBC Lactate Dehydrogenase Total Creatine Kinase NT-Pro-B Natriuret Pep Total Protein Albumin Fixbt-2-Ydyejsnft Qngpk-4-Oqbrchube Beta Globulins PEP Interpretation Cholesterol LDL Cholesterol Direct Vitamin B12 Urine Creatinine Crossmatch 04/14/16 04/15/16 04/15/16 13:58 01:07 06:04 WBC RBC Hgb Hct MCV MCH MCHC RDW Plt Count Lymph % (Auto) [place] % (Auto) Lymph # [place] # Baso # Seg Neutrophils % Seg Neuts % (Manual) Lymphocytes % (Manual) Seg Neutrophils # Seg Neutrophils # Man Lymphocytes # (Manual) Monocytes # (Manual) Percent Retic PT 24.9 H INR 2.25 H APTT Heparin Anti-Xa Level POC ABG pH POC ABG pCO2 POC ABG pO2 Sodium Potassium Chloride Carbon Dioxide BUN Creatinine Glucose POC Glucose 109 H 154 H Calcium Phosphorus Iron TIBC Lactate Dehydrogenase Total Creatine Kinase NT-Pro-B Natriuret Pep Total Protein Albumin Osnwc-5-Beptbakmj Qnsou-0-Wcqzdozyy Beta Globulins PEP Interpretation Cholesterol LDL Cholesterol Direct Vitamin B12 Urine Creatinine Crossmatch 04/15/16 04/15/16 04/16/16 06:08 12:41 00:38 WBC RBC Hgb Hct MCV MCH MCHC RDW Plt Count Lymph % (Auto) [place] % (Auto) Lymph # [place] # Baso # Seg Neutrophils % Seg Neuts % (Manual) Lymphocytes % (Manual) Seg Neutrophils # Seg Neutrophils # Man Lymphocytes # (Manual) Monocytes # (Manual) Percent Retic PT INR APTT Heparin Anti-Xa Level POC ABG pH POC ABG pCO2 POC ABG pO2 Sodium Potassium Chloride Carbon Dioxide BUN Creatinine Glucose POC Glucose 165 H 223 H 216 H Calcium Phosphorus Iron TIBC Lactate Dehydrogenase Total Creatine Kinase NT-Pro-B Natriuret Pep Total Protein Albumin Lciqa-0-Fpwysoinu Pqqbf-6-Oaphdbwul Beta Globulins PEP Interpretation Cholesterol LDL Cholesterol Direct Vitamin B12 Urine Creatinine Crossmatch 04/16/16 04/16/16 04/16/16 05:45 07:09 14:00 WBC RBC Hgb Hct MCV MCH MCHC RDW Plt Count Lymph % (Auto) [place] % (Auto) Lymph # [place] # Baso # Seg Neutrophils % Seg Neuts % (Manual) Lymphocytes % (Manual) Seg Neutrophils # Seg Neutrophils # Man Lymphocytes # (Manual) Monocytes # (Manual) Percent Retic PT 19.4 H INR 1.64 H APTT Heparin Anti-Xa Level 0.10 L POC ABG pH POC ABG pCO2 POC ABG pO2 Sodium Potassium Chloride Carbon Dioxide BUN Creatinine Glucose POC Glucose 207 H 69 L Calcium Phosphorus Iron TIBC Lactate Dehydrogenase Total Creatine Kinase NT-Pro-B Natriuret Pep Total Protein Albumin Ifpjs-3-Sssoicsan Clxkr-3-Lwgvqtohp Beta Globulins PEP Interpretation Cholesterol LDL Cholesterol Direct Vitamin B12 Urine Creatinine Crossmatch 04/16/16 04/16/16 04/16/16 17:40 17:52 19:38 WBC RBC Hgb Hct MCV MCH MCHC RDW Plt Count Lymph % (Auto) [place] % (Auto) Lymph # [place] # Baso # Seg Neutrophils % Seg Neuts % (Manual) Lymphocytes % (Manual) Seg Neutrophils # Seg Neutrophils # Man Lymphocytes # (Manual) Monocytes # (Manual) Percent Retic PT INR APTT Heparin Anti-Xa Level 0.26 L POC ABG pH 7.543 H 7.488 H POC ABG pCO2 26.3 L 30.3 L POC ABG pO2 55 L 203 H Sodium Potassium Chloride Carbon Dioxide BUN Creatinine Glucose POC Glucose Calcium Phosphorus Iron TIBC Lactate Dehydrogenase Total Creatine Kinase NT-Pro-B Natriuret Pep Total Protein Albumin Xqepj-7-Fqrrorpqk Lxcsl-8-Axhwjpykt Beta Globulins PEP Interpretation Cholesterol LDL Cholesterol Direct Vitamin B12 Urine Creatinine Crossmatch 04/17/16 04/17/16 04/17/16 00:04 05:10 05:36 WBC RBC Hgb Hct MCV MCH MCHC RDW Plt Count Lymph % (Auto) [place] % (Auto) Lymph # [place] # Baso # Seg Neutrophils % Seg Neuts % (Manual) Lymphocytes % (Manual) Seg Neutrophils # Seg Neutrophils # Man Lymphocytes # (Manual) Monocytes # (Manual) Percent Retic PT INR APTT Heparin Anti-Xa Level POC ABG pH POC ABG pCO2 32.7 L POC ABG pO2 68 L Sodium Potassium Chloride Carbon Dioxide BUN Creatinine Glucose POC Glucose 113 H 161 H Calcium Phosphorus Iron TIBC Lactate Dehydrogenase Total Creatine Kinase NT-Pro-B Natriuret Pep Total Protein Albumin Zlbgz-4-Tqzptmlye Kekmi-1-Hfinafzfk Beta Globulins PEP Interpretation Cholesterol LDL Cholesterol Direct Vitamin B12 Urine Creatinine Crossmatch 04/17/16 04/17/16 04/17/16 05:41 08:37 11:46 WBC RBC Hgb Hct MCV MCH MCHC RDW Plt Count Lymph % (Auto) [place] % (Auto) Lymph # [place] # Baso # Seg Neutrophils % Seg Neuts % (Manual) Lymphocytes % (Manual) Seg Neutrophils # Seg Neutrophils # Man Lymphocytes # (Manual) Monocytes # (Manual) Percent Retic PT 17.4 H INR 1.43 H APTT Heparin Anti-Xa Level POC ABG pH POC ABG pCO2 POC ABG pO2 Sodium Potassium Chloride Carbon Dioxide BUN Creatinine Glucose POC Glucose 154 H 138 H Calcium Phosphorus Iron TIBC Lactate Dehydrogenase Total Creatine Kinase NT-Pro-B Natriuret Pep Total Protein Albumin Hgoks-7-Vmfvbnpsb Ryrrl-2-Zrztcyjkr Beta Globulins PEP Interpretation Cholesterol LDL Cholesterol Direct Vitamin B12 Urine Creatinine Crossmatch 04/17/16 04/17/16 04/17/16 12:17 12:17 21:20 WBC 16.5 H RBC 3.31 L Hgb 8.8 L Hct 26.9 L MCV 81 L MCH 27 L MCHC RDW 15.5 H Plt Count Lymph % (Auto) [place] % (Auto) Lymph # [place] # Baso # Seg Neutrophils % Seg Neuts % (Manual) Lymphocytes % (Manual) 3.0 L Seg Neutrophils # Seg Neutrophils # Man 10.1 H Lymphocytes # (Manual) 0.5 L Monocytes # (Manual) Percent Retic PT INR APTT Heparin Anti-Xa Level 0.14 L POC ABG pH POC ABG pCO2 POC ABG pO2 Sodium Potassium Chloride Carbon Dioxide 21 L BUN 38 H Creatinine 1.8 H D Glucose 131 H POC Glucose Calcium 7.6 L Phosphorus Iron TIBC Lactate Dehydrogenase Total Creatine Kinase NT-Pro-B Natriuret Pep Total Protein Albumin Dqrao-9-Ktclmmnap Kbdfd-8-Oufnexuij Beta Globulins PEP Interpretation Cholesterol LDL Cholesterol Direct Vitamin B12 Urine Creatinine Crossmatch 04/17/16 04/17/16 04/18/16 23:38 23:41 00:21 WBC RBC Hgb Hct MCV MCH MCHC RDW Plt Count Lymph % (Auto) [place] % (Auto) Lymph # [place] # Baso # Seg Neutrophils % Seg Neuts % (Manual) Lymphocytes % (Manual) Seg Neutrophils # Seg Neutrophils # Man Lymphocytes # (Manual) Monocytes # (Manual) Percent Retic PT INR APTT Heparin Anti-Xa Level POC ABG pH POC ABG pCO2 POC ABG pO2 Sodium Potassium Chloride Carbon Dioxide BUN Creatinine Glucose POC Glucose < 40 L < 40 L 223 H Calcium Phosphorus Iron TIBC Lactate Dehydrogenase Total Creatine Kinase NT-Pro-B Natriuret Pep Total Protein Albumin Xtdrt-1-Icarlfwnf Geqmg-9-Wswmjuknz Beta Globulins PEP Interpretation Cholesterol LDL Cholesterol Direct Vitamin B12 Urine Creatinine Crossmatch 04/18/16 04/18/16 04/18/16 05:01 05:20 05:20 WBC 17.6 H RBC 3.44 L Hgb 9.1 L Hct 27.8 L MCV 81 L MCH 26 L MCHC RDW 15.5 H Plt Count Lymph % (Auto) 2.7 L [place] % (Auto) 8.3 H Lymph # 0.5 L [place] # 1.5 H Baso # Seg Neutrophils % 88.4 H Seg Neuts % (Manual) Lymphocytes % (Manual) Seg Neutrophils # 15.6 H Seg Neutrophils # Man Lymphocytes # (Manual) Monocytes # (Manual) Percent Retic PT 17.4 H INR 1.43 H APTT Heparin Anti-Xa Level POC ABG pH 7.528 H POC ABG pCO2 27.9 L POC ABG pO2 Sodium Potassium Chloride Carbon Dioxide BUN Creatinine Glucose POC Glucose Calcium Phosphorus Iron TIBC Lactate Dehydrogenase Total Creatine Kinase NT-Pro-B Natriuret Pep Total Protein Albumin Xyary-6-Ejkdlsdtg Gahwb-6-Jpagwrsrg Beta Globulins PEP Interpretation Cholesterol LDL Cholesterol Direct Vitamin B12 Urine Creatinine Crossmatch 04/18/16 04/18/16 04/18/16 05:20 05:31 06:50 WBC RBC Hgb Hct MCV MCH MCHC RDW Plt Count Lymph % (Auto) [place] % (Auto) Lymph # [place] # Baso # Seg Neutrophils % Seg Neuts % (Manual) Lymphocytes % (Manual) Seg Neutrophils # Seg Neutrophils # Man Lymphocytes # (Manual) Monocytes # (Manual) Percent Retic PT INR APTT Heparin Anti-Xa Level POC ABG pH POC ABG pCO2 POC ABG pO2 Sodium Potassium 3.4 L Chloride Carbon Dioxide 21 L BUN 22 H Creatinine Glucose POC Glucose 61 L 124 H Calcium 8.0 L Phosphorus Iron TIBC Lactate Dehydrogenase Total Creatine Kinase NT-Pro-B Natriuret Pep Total Protein Albumin Xnddv-1-Tuocgiirm Skwzt-4-Ptlmolrsy Beta Globulins PEP Interpretation Cholesterol LDL Cholesterol Direct Vitamin B12 Urine Creatinine Crossmatch 04/18/16 04/18/16 04/19/16 17:42 22:40 00:31 WBC RBC Hgb Hct MCV MCH MCHC RDW Plt Count Lymph % (Auto) [place] % (Auto) Lymph # [place] # Baso # Seg Neutrophils % Seg Neuts % (Manual) Lymphocytes % (Manual) Seg Neutrophils # Seg Neutrophils # Man Lymphocytes # (Manual) Monocytes # (Manual) Percent Retic PT INR APTT Heparin Anti-Xa Level < 0.10 L POC ABG pH POC ABG pCO2 POC ABG pO2 Sodium Potassium Chloride Carbon Dioxide BUN Creatinine Glucose POC Glucose 159 H 134 H Calcium Phosphorus Iron TIBC Lactate Dehydrogenase Total Creatine Kinase NT-Pro-B Natriuret Pep Total Protein Albumin Omerj-9-Xfjyiuhts Skjiq-2-Txruyesgo Beta Globulins PEP Interpretation Cholesterol LDL Cholesterol Direct Vitamin B12 Urine Creatinine Crossmatch 04/19/16 04/19/16 04/19/16 04:18 04:18 04:25 WBC 19.0 H RBC 3.58 L Hgb 9.3 L Hct 28.8 L MCV 80 L MCH 26 L MCHC RDW 15.5 H Plt Count Lymph % (Auto) 2.8 L [place] % (Auto) 7.4 H Lymph # 0.5 L [place] # 1.4 H Baso # Seg Neutrophils % 89.4 H Seg Neuts % (Manual) Lymphocytes % (Manual) Seg Neutrophils # 17.0 H Seg Neutrophils # Man Lymphocytes # (Manual) Monocytes # (Manual) Percent Retic PT INR APTT Heparin Anti-Xa Level POC ABG pH 7.527 H POC ABG pCO2 27.1 L POC ABG pO2 Sodium Potassium Chloride Carbon Dioxide BUN 22 H Creatinine Glucose 215 H POC Glucose Calcium 8.0 L Phosphorus Iron TIBC Lactate Dehydrogenase Total Creatine Kinase NT-Pro-B Natriuret Pep Total Protein Albumin Zqfbs-9-Ujgunombt Pvphr-6-Hrwhuxisn Beta Globulins PEP Interpretation Cholesterol LDL Cholesterol Direct Vitamin B12 Urine Creatinine Crossmatch 04/19/16 04/19/16 04/19/16 05:45 08:10 14:08 WBC RBC Hgb Hct MCV MCH MCHC RDW Plt Count Lymph % (Auto) [place] % (Auto) Lymph # [place] # Baso # Seg Neutrophils % Seg Neuts % (Manual) Lymphocytes % (Manual) Seg Neutrophils # Seg Neutrophils # Man Lymphocytes # (Manual) Monocytes # (Manual) Percent Retic PT 22.1 H INR 1.93 H APTT Heparin Anti-Xa Level 0.17 L POC ABG pH POC ABG pCO2 POC ABG pO2 Sodium Potassium Chloride Carbon Dioxide BUN Creatinine Glucose POC Glucose 196 H 318 H Calcium Phosphorus Iron TIBC Lactate Dehydrogenase Total Creatine Kinase NT-Pro-B Natriuret Pep Total Protein Albumin Oqlcb-5-Vodoqxfcu Jyknm-3-Yuwfjaohg Beta Globulins PEP Interpretation Cholesterol LDL Cholesterol Direct Vitamin B12 Urine Creatinine Crossmatch 04/19/16 04/20/16 04/20/16 17:27 03:55 03:55 WBC 18.5 H RBC 3.19 L Hgb 8.4 L Hct 25.7 L MCV 80 L MCH 26 L MCHC RDW 15.9 H Plt Count Lymph % (Auto) 4.3 L [place] % (Auto) 10.1 H Lymph # 0.8 L [place] # 1.9 H Baso # Seg Neutrophils % 85.2 H Seg Neuts % (Manual) Lymphocytes % (Manual) Seg Neutrophils # 15.8 H Seg Neutrophils # Man Lymphocytes # (Manual) Monocytes # (Manual) Percent Retic PT 22.0 H INR 1.92 H APTT Heparin Anti-Xa Level 0.14 L POC ABG pH POC ABG pCO2 POC ABG pO2 Sodium Potassium Chloride Carbon Dioxide BUN Creatinine Glucose POC Glucose 230 H Calcium Phosphorus Iron TIBC Lactate Dehydrogenase Total Creatine Kinase NT-Pro-B Natriuret Pep Total Protein Albumin Xzvdm-6-Thaovektu Hboti-6-Mdqymynyt Beta Globulins PEP Interpretation Cholesterol LDL Cholesterol Direct Vitamin B12 Urine Creatinine Crossmatch 04/20/16 04/20/16 04/20/16 03:55 04:16 05:52 WBC RBC Hgb Hct MCV MCH MCHC RDW Plt Count Lymph % (Auto) [place] % (Auto) Lymph # [place] # Baso # Seg Neutrophils % Seg Neuts % (Manual) Lymphocytes % (Manual) Seg Neutrophils # Seg Neutrophils # Man Lymphocytes # (Manual) Monocytes # (Manual) Percent Retic PT INR APTT Heparin Anti-Xa Level POC ABG pH 7.474 H POC ABG pCO2 26.5 L POC ABG pO2 Sodium Potassium Chloride Carbon Dioxide 18 L BUN 38 H Creatinine 2.7 H D Glucose 159 H POC Glucose 214 H Calcium 8.0 L Phosphorus Iron TIBC Lactate Dehydrogenase Total Creatine Kinase NT-Pro-B Natriuret Pep Total Protein Albumin Shcsi-6-Uvavjhulq Rpjyw-1-Volxrftul Beta Globulins PEP Interpretation Cholesterol LDL Cholesterol Direct Vitamin B12 Urine Creatinine Crossmatch 04/20/16 04/20/16 04/20/16 10:32 11:27 11:50 WBC RBC Hgb Hct MCV MCH MCHC RDW Plt Count Lymph % (Auto) [place] % (Auto) Lymph # [place] # Baso # Seg Neutrophils % Seg Neuts % (Manual) Lymphocytes % (Manual) Seg Neutrophils # Seg Neutrophils # Man Lymphocytes # (Manual) Monocytes # (Manual) Percent Retic PT INR APTT Heparin Anti-Xa Level POC ABG pH POC ABG pCO2 POC ABG pO2 Sodium Potassium Chloride Carbon Dioxide 20 L BUN 45 H Creatinine 3.0 H Glucose 215 H POC Glucose 248 H Calcium 8.0 L Phosphorus Iron TIBC Lactate Dehydrogenase Total Creatine Kinase NT-Pro-B Natriuret Pep Total Protein Albumin Phcyo-2-Annbdgahc Rshky-6-Drmgxpfql Beta Globulins PEP Interpretation Cholesterol LDL Cholesterol Direct Vitamin B12 Urine Creatinine 85.5 H Crossmatch 04/20/16 04/21/16 04/21/16 16:59 00:13 04:29 WBC RBC Hgb Hct MCV MCH MCHC RDW Plt Count Lymph % (Auto) [place] % (Auto) Lymph # [place] # Baso # Seg Neutrophils % Seg Neuts % (Manual) Lymphocytes % (Manual) Seg Neutrophils # Seg Neutrophils # Man Lymphocytes # (Manual) Monocytes # (Manual) Percent Retic PT 18.1 H INR 1.50 H APTT Heparin Anti-Xa Level 0.10 L POC ABG pH POC ABG pCO2 POC ABG pO2 Sodium Potassium Chloride Carbon Dioxide BUN Creatinine Glucose POC Glucose 312 H 287 H Calcium Phosphorus Iron TIBC Lactate Dehydrogenase Total Creatine Kinase NT-Pro-B Natriuret Pep Total Protein Albumin Wbwlx-1-Lppnrzgzx Stmxt-3-Obhobalhd Beta Globulins PEP Interpretation Cholesterol LDL Cholesterol Direct Vitamin B12 Urine Creatinine Crossmatch 04/21/16 04/21/16 04/21/16 04:29 04:29 04:55 WBC 15.4 H RBC 3.24 L Hgb 8.4 L Hct 25.6 L MCV 79 L MCH 26 L MCHC RDW 16.1 H Plt Count Lymph % (Auto) 6.8 L [place] % (Auto) 12.9 H Lymph # 1.0 L [place] # 2.0 H Baso # Seg Neutrophils % 79.8 H Seg Neuts % (Manual) Lymphocytes % (Manual) Seg Neutrophils # 12.3 H Seg Neutrophils # Man Lymphocytes # (Manual) Monocytes # (Manual) Percent Retic PT INR APTT Heparin Anti-Xa Level POC ABG pH 7.512 H POC ABG pCO2 25.4 L POC ABG pO2 Sodium 135 L Potassium Chloride Carbon Dioxide 18 L BUN 57 H Creatinine 3.9 H Glucose 202 H POC Glucose Calcium 8.0 L Phosphorus Iron TIBC Lactate Dehydrogenase Total Creatine Kinase NT-Pro-B Natriuret Pep Total Protein Albumin Uagrf-1-Spwaodgcg Eesyx-5-Cnuhpqxnc Beta Globulins PEP Interpretation Cholesterol LDL Cholesterol Direct Vitamin B12 Urine Creatinine Crossmatch 04/21/16 04/21/16 04/21/16 05:20 12:08 12:16 WBC RBC Hgb Hct MCV MCH MCHC RDW Plt Count Lymph % (Auto) [place] % (Auto) Lymph # [place] # Baso # Seg Neutrophils % Seg Neuts % (Manual) Lymphocytes % (Manual) Seg Neutrophils # Seg Neutrophils # Man Lymphocytes # (Manual) Monocytes # (Manual) Percent Retic PT INR APTT Heparin Anti-Xa Level 0.16 L POC ABG pH POC ABG pCO2 POC ABG pO2 Sodium Potassium Chloride Carbon Dioxide BUN Creatinine Glucose POC Glucose 203 H 221 H Calcium Phosphorus Iron TIBC Lactate Dehydrogenase Total Creatine Kinase NT-Pro-B Natriuret Pep Total Protein Albumin Hnrcf-2-Iqidyevec Cfkpl-5-Andjsnpur Beta Globulins PEP Interpretation Cholesterol LDL Cholesterol Direct Vitamin B12 Urine Creatinine Crossmatch 04/21/16 04/22/16 04/22/16 17:22 05:01 05:20 WBC RBC Hgb Hct MCV MCH MCHC RDW Plt Count Lymph % (Auto) [place] % (Auto) Lymph # [place] # Baso # Seg Neutrophils % Seg Neuts % (Manual) Lymphocytes % (Manual) Seg Neutrophils # Seg Neutrophils # Man Lymphocytes # (Manual) Monocytes # (Manual) Percent Retic PT 17.5 H INR 1.44 H APTT Heparin Anti-Xa Level POC ABG pH 7.460 H POC ABG pCO2 27.9 L POC ABG pO2 Sodium Potassium Chloride Carbon Dioxide BUN Creatinine Glucose POC Glucose 189 H Calcium Phosphorus Iron TIBC Lactate Dehydrogenase Total Creatine Kinase NT-Pro-B Natriuret Pep Total Protein Albumin Eiynx-1-Tiryueiqn Qwxft-0-Jtezkugiv Beta Globulins PEP Interpretation Cholesterol LDL Cholesterol Direct Vitamin B12 Urine Creatinine Crossmatch 04/22/16 04/22/16 04/22/16 05:43 06:40 08:08 WBC RBC Hgb Hct MCV MCH MCHC RDW Plt Count Lymph % (Auto) [place] % (Auto) Lymph # [place] # Baso # Seg Neutrophils % Seg Neuts % (Manual) Lymphocytes % (Manual) Seg Neutrophils # Seg Neutrophils # Man Lymphocytes # (Manual) Monocytes # (Manual) Percent Retic PT INR APTT Heparin Anti-Xa Level POC ABG pH POC ABG pCO2 POC ABG pO2 Sodium Potassium Chloride Carbon Dioxide BUN Creatinine Glucose POC Glucose 56 L 136 H 134 H Calcium Phosphorus Iron TIBC Lactate Dehydrogenase Total Creatine Kinase NT-Pro-B Natriuret Pep Total Protein Albumin Sptrr-6-Fqcjqyhyg Tkrny-1-Mkiirivfn Beta Globulins PEP Interpretation Cholesterol LDL Cholesterol Direct Vitamin B12 Urine Creatinine Crossmatch 04/22/16 04/22/16 04/22/16 11:18 12:10 18:17 WBC RBC Hgb Hct MCV MCH MCHC RDW Plt Count Lymph % (Auto) [place] % (Auto) Lymph # [place] # Baso # Seg Neutrophils % Seg Neuts % (Manual) Lymphocytes % (Manual) Seg Neutrophils # Seg Neutrophils # Man Lymphocytes # (Manual) Monocytes # (Manual) Percent Retic PT INR APTT Heparin Anti-Xa Level 0.12 L POC ABG pH POC ABG pCO2 POC ABG pO2 Sodium Potassium Chloride Carbon Dioxide BUN Creatinine Glucose POC Glucose 142 H 227 H Calcium Phosphorus Iron TIBC Lactate Dehydrogenase Total Creatine Kinase NT-Pro-B Natriuret Pep Total Protein Albumin Geyof-4-Dybqfwoso Aqsfe-3-Bhwvbldte Beta Globulins PEP Interpretation Cholesterol LDL Cholesterol Direct Vitamin B12 Urine Creatinine Crossmatch 04/22/16 04/22/16 04/23/16 22:28 23:47 04:49 WBC RBC Hgb Hct MCV MCH MCHC RDW Plt Count Lymph % (Auto) [place] % (Auto) Lymph # [place] # Baso # Seg Neutrophils % Seg Neuts % (Manual) Lymphocytes % (Manual) Seg Neutrophils # Seg Neutrophils # Man Lymphocytes # (Manual) Monocytes # (Manual) Percent Retic PT INR APTT Heparin Anti-Xa Level 0.16 L POC ABG pH POC ABG pCO2 32.6 L POC ABG pO2 122 H Sodium Potassium Chloride Carbon Dioxide BUN Creatinine Glucose POC Glucose 266 H Calcium Phosphorus Iron TIBC Lactate Dehydrogenase Total Creatine Kinase NT-Pro-B Natriuret Pep Total Protein Albumin Lscfq-4-Huadpndwf Ucehr-0-Wffpkjmej Beta Globulins PEP Interpretation Cholesterol LDL Cholesterol Direct Vitamin B12 Urine Creatinine Crossmatch 04/23/16 04/23/16 04/23/16 05:41 08:05 08:34 WBC RBC Hgb Hct MCV MCH MCHC RDW Plt Count Lymph % (Auto) [place] % (Auto) Lymph # [place] # Baso # Seg Neutrophils % Seg Neuts % (Manual) Lymphocytes % (Manual) Seg Neutrophils # Seg Neutrophils # Man Lymphocytes # (Manual) Monocytes # (Manual) Percent Retic PT INR APTT Heparin Anti-Xa Level POC ABG pH POC ABG pCO2 POC ABG pO2 Sodium Potassium Chloride 109.5 H Carbon Dioxide 21 L BUN 23 H Creatinine Glucose 227 H POC Glucose 227 H 224 H Calcium 8.2 L Phosphorus Iron TIBC Lactate Dehydrogenase Total Creatine Kinase NT-Pro-B Natriuret Pep Total Protein Albumin Uypxp-9-Svperkfsg Febuy-3-Pppdjorwd Beta Globulins PEP Interpretation Cholesterol LDL Cholesterol Direct Vitamin B12 Urine Creatinine Crossmatch 04/23/16 04/23/16 04/23/16 10:45 11:37 22:49 WBC RBC Hgb Hct MCV MCH MCHC RDW Plt Count Lymph % (Auto) [place] % (Auto) Lymph # [place] # Baso # Seg Neutrophils % Seg Neuts % (Manual) Lymphocytes % (Manual) Seg Neutrophils # Seg Neutrophils # Man Lymphocytes # (Manual) Monocytes # (Manual) Percent Retic PT 15.9 H INR 1.28 H APTT Heparin Anti-Xa Level 0.12 L POC ABG pH POC ABG pCO2 POC ABG pO2 Sodium Potassium Chloride Carbon Dioxide BUN Creatinine Glucose POC Glucose 256 H Calcium Phosphorus Iron TIBC Lactate Dehydrogenase Total Creatine Kinase NT-Pro-B Natriuret Pep Total Protein Albumin Jzpov-0-Omnozdoal Sgtrb-0-Grqxmqhiu Beta Globulins PEP Interpretation Cholesterol LDL Cholesterol Direct Vitamin B12 Urine Creatinine Crossmatch 04/23/16 04/24/16 04/24/16 23:59 05:29 06:03 WBC RBC Hgb Hct MCV MCH MCHC RDW Plt Count Lymph % (Auto) [place] % (Auto) Lymph # [place] # Baso # Seg Neutrophils % Seg Neuts % (Manual) Lymphocytes % (Manual) Seg Neutrophils # Seg Neutrophils # Man Lymphocytes # (Manual) Monocytes # (Manual) Percent Retic PT INR APTT Heparin Anti-Xa Level POC ABG pH 7.464 H POC ABG pCO2 32.4 L POC ABG pO2 115 H Sodium Potassium Chloride Carbon Dioxide BUN Creatinine Glucose POC Glucose 176 H 256 H Calcium Phosphorus Iron TIBC Lactate Dehydrogenase Total Creatine Kinase NT-Pro-B Natriuret Pep Total Protein Albumin Ebucv-9-Nyghhdduq Cvmln-6-Trocgjmcj Beta Globulins PEP Interpretation Cholesterol LDL Cholesterol Direct Vitamin B12 Urine Creatinine Crossmatch 04/24/16 04/24/16 04/24/16 07:59 12:10 17:17 WBC RBC Hgb Hct MCV MCH MCHC RDW Plt Count Lymph % (Auto) [place] % (Auto) Lymph # [place] # Baso # Seg Neutrophils % Seg Neuts % (Manual) Lymphocytes % (Manual) Seg Neutrophils # Seg Neutrophils # Man Lymphocytes # (Manual) Monocytes # (Manual) Percent Retic PT INR APTT Heparin Anti-Xa Level 0.18 L POC ABG pH POC ABG pCO2 POC ABG pO2 Sodium Potassium Chloride Carbon Dioxide BUN Creatinine Glucose POC Glucose 304 H 325 H Calcium Phosphorus Iron TIBC Lactate Dehydrogenase Total Creatine Kinase NT-Pro-B Natriuret Pep Total Protein Albumin Jlmnx-7-Jhhmkwurg Qjhpo-3-Zmukulmxu Beta Globulins PEP Interpretation Cholesterol LDL Cholesterol Direct Vitamin B12 Urine Creatinine Crossmatch 04/25/16 04/25/16 04/25/16 00:52 06:40 06:44 WBC RBC Hgb Hct MCV MCH MCHC RDW Plt Count Lymph % (Auto) [place] % (Auto) Lymph # [place] # Baso # Seg Neutrophils % Seg Neuts % (Manual) Lymphocytes % (Manual) Seg Neutrophils # Seg Neutrophils # Man Lymphocytes # (Manual) Monocytes # (Manual) Percent Retic PT INR APTT Heparin Anti-Xa Level 0.11 L POC ABG pH POC ABG pCO2 POC ABG pO2 Sodium Potassium Chloride Carbon Dioxide BUN Creatinine Glucose POC Glucose 212 H 184 H Calcium Phosphorus Iron TIBC Lactate Dehydrogenase Total Creatine Kinase NT-Pro-B Natriuret Pep Total Protein Albumin Dvrbb-3-Xxuzspabm Aaqgw-1-Ivcfdaqzy Beta Globulins PEP Interpretation Cholesterol LDL Cholesterol Direct Vitamin B12 Urine Creatinine Crossmatch 04/25/16 04/25/16 04/25/16 11:40 13:26 17:27 WBC RBC Hgb Hct MCV MCH MCHC RDW Plt Count Lymph % (Auto) [place] % (Auto) Lymph # [place] # Baso # Seg Neutrophils % Seg Neuts % (Manual) Lymphocytes % (Manual) Seg Neutrophils # Seg Neutrophils # Man Lymphocytes # (Manual) Monocytes # (Manual) Percent Retic PT INR APTT Heparin Anti-Xa Level 0.21 L POC ABG pH POC ABG pCO2 POC ABG pO2 Sodium Potassium Chloride Carbon Dioxide BUN Creatinine Glucose POC Glucose 206 H 204 H Calcium Phosphorus Iron TIBC Lactate Dehydrogenase Total Creatine Kinase NT-Pro-B Natriuret Pep Total Protein Albumin Ncdui-4-Vfyzryrcb Uvwal-6-Kgtqlqupv Beta Globulins PEP Interpretation Cholesterol LDL Cholesterol Direct Vitamin B12 Urine Creatinine Crossmatch 04/25/16 04/26/16 04/26/16 23:46 06:31 11:51 WBC RBC Hgb Hct MCV MCH MCHC RDW Plt Count Lymph % (Auto) [place] % (Auto) Lymph # [place] # Baso # Seg Neutrophils % Seg Neuts % (Manual) Lymphocytes % (Manual) Seg Neutrophils # Seg Neutrophils # Man Lymphocytes # (Manual) Monocytes # (Manual) Percent Retic PT INR APTT Heparin Anti-Xa Level POC ABG pH POC ABG pCO2 POC ABG pO2 Sodium Potassium Chloride Carbon Dioxide BUN Creatinine Glucose POC Glucose 162 H 148 H 178 H Calcium Phosphorus Iron TIBC Lactate Dehydrogenase Total Creatine Kinase NT-Pro-B Natriuret Pep Total Protein Albumin Khlxi-9-Kzksdbedh Qwwah-5-Yjusybvrn Beta Globulins PEP Interpretation Cholesterol LDL Cholesterol Direct Vitamin B12 Urine Creatinine Crossmatch 04/26/16 04/26/16 04/26/16 12:17 16:16 18:14 WBC RBC Hgb Hct MCV MCH MCHC RDW Plt Count Lymph % (Auto) [place] % (Auto) Lymph # [place] # Baso # Seg Neutrophils % Seg Neuts % (Manual) Lymphocytes % (Manual) Seg Neutrophils # Seg Neutrophils # Man Lymphocytes # (Manual) Monocytes # (Manual) Percent Retic PT INR APTT Heparin Anti-Xa Level POC ABG pH 7.513 H POC ABG pCO2 POC ABG pO2 76 L Sodium Potassium Chloride Carbon Dioxide BUN Creatinine Glucose POC Glucose 186 H 172 H Calcium Phosphorus Iron TIBC Lactate Dehydrogenase Total Creatine Kinase NT-Pro-B Natriuret Pep Total Protein Albumin Dkqeo-9-Tlydpddxl Ntxfc-8-Diecnhndi Beta Globulins PEP Interpretation Cholesterol LDL Cholesterol Direct Vitamin B12 Urine Creatinine Crossmatch 04/26/16 04/26/16 04/27/16 19:27 23:28 04:21 WBC 13.1 H RBC 2.99 L Hgb 7.8 L Hct 24.0 L MCV 81 L MCH 26 L MCHC RDW 16.7 H Plt Count 486 H Lymph % (Auto) 12.5 L [place] % (Auto) 7.9 H Lymph # [place] # 1.0 H Baso # Seg Neutrophils % 77.5 H Seg Neuts % (Manual) Lymphocytes % (Manual) Seg Neutrophils # 10.2 H Seg Neutrophils # Man Lymphocytes # (Manual) Monocytes # (Manual) Percent Retic PT INR APTT Heparin Anti-Xa Level 0.22 L POC ABG pH POC ABG pCO2 POC ABG pO2 Sodium Potassium Chloride Carbon Dioxide BUN Creatinine Glucose POC Glucose 141 H Calcium Phosphorus Iron TIBC Lactate Dehydrogenase Total Creatine Kinase NT-Pro-B Natriuret Pep Total Protein Albumin Ukrrz-3-Ogtgwpplu Hiunk-0-Rhvndqzss Beta Globulins PEP Interpretation Cholesterol LDL Cholesterol Direct Vitamin B12 Urine Creatinine Crossmatch 04/27/16 04/27/16 04/27/16 04:21 05:46 11:04 WBC RBC Hgb Hct MCV MCH MCHC RDW Plt Count Lymph % (Auto) [place] % (Auto) Lymph # [place] # Baso # Seg Neutrophils % Seg Neuts % (Manual) Lymphocytes % (Manual) Seg Neutrophils # Seg Neutrophils # Man Lymphocytes # (Manual) Monocytes # (Manual) Percent Retic PT INR APTT Heparin Anti-Xa Level POC ABG pH 7.489 H POC ABG pCO2 POC ABG pO2 71 L Sodium Potassium Chloride Carbon Dioxide BUN Creatinine 0.6 L Glucose 187 H POC Glucose 192 H Calcium 8.0 L Phosphorus Iron TIBC Lactate Dehydrogenase Total Creatine Kinase NT-Pro-B Natriuret Pep Total Protein 6.0 L Albumin 2.0 L [id number] [id number] Beta Globulins PEP Interpretation Cholesterol LDL Cholesterol Direct Vitamin B12 Urine Creatinine Crossmatch 12/04/27/16 04/27/16 14:12 21:58 23:38 WBC RBC Hgb Hct MCV MCH MCHC RDW Plt Count Lymph % (Auto) [place] % (Auto) Lymph # [place] # Baso # Seg Neutrophils % Seg Neuts % (Manual) Lymphocytes % (Manual) Seg Neutrophils # Seg Neutrophils # Man Lymphocytes # (Manual) Monocytes # (Manual) Percent Retic PT INR APTT Heparin Anti-Xa Level 0.24 L POC ABG pH POC ABG pCO2 POC ABG pO2 Sodium Potassium Chloride Carbon Dioxide BUN Creatinine Glucose POC Glucose 216 H 181 H Calcium Phosphorus Iron TIBC Lactate Dehydrogenase Total Creatine Kinase NT-Pro-B Natriuret Pep Total Protein Albumin Qsgpa-4-Npbnlztny Romkc-9-Khhxznnti Beta Globulins PEP Interpretation Cholesterol LDL Cholesterol Direct Vitamin B12 Urine Creatinine Crossmatch 04/28/16 04/28/16 04/28/16 04:28 05:52 11:31 WBC RBC Hgb Hct MCV MCH MCHC RDW Plt Count Lymph % (Auto) [place] % (Auto) Lymph # [place] # Baso # Seg Neutrophils % Seg Neuts % (Manual) Lymphocytes % (Manual) Seg Neutrophils # Seg Neutrophils # Man Lymphocytes # (Manual) Monocytes # (Manual) Percent Retic PT INR APTT Heparin Anti-Xa Level POC ABG pH 7.524 H POC ABG pCO2 POC ABG pO2 Sodium Potassium Chloride Carbon Dioxide BUN Creatinine Glucose POC Glucose 254 H 280 H Calcium Phosphorus Iron TIBC Lactate Dehydrogenase Total Creatine Kinase NT-Pro-B Natriuret Pep Total Protein Albumin Gqeen-6-Kmwthelyz Meusj-3-Skvewyutt Beta Globulins PEP Interpretation Cholesterol LDL Cholesterol Direct Vitamin B12 Urine Creatinine Crossmatch 04/28/16 04/28/16 04/29/16 17:30 19:52 00:47 WBC RBC Hgb Hct MCV MCH MCHC RDW Plt Count Lymph % (Auto) [place] % (Auto) Lymph # [place] # Baso # Seg Neutrophils % Seg Neuts % (Manual) Lymphocytes % (Manual) Seg Neutrophils # Seg Neutrophils # Man Lymphocytes # (Manual) Monocytes # (Manual) Percent Retic PT INR APTT Heparin Anti-Xa Level 0.15 L POC ABG pH POC ABG pCO2 POC ABG pO2 Sodium Potassium Chloride Carbon Dioxide BUN Creatinine Glucose POC Glucose 208 H 265 H Calcium Phosphorus Iron TIBC Lactate Dehydrogenase Total Creatine Kinase NT-Pro-B Natriuret Pep Total Protein Albumin Otijv-5-Zujqxoaqh Qeddn-6-Atymojdrq Beta Globulins PEP Interpretation Cholesterol LDL Cholesterol Direct Vitamin B12 Urine Creatinine Crossmatch 04/29/16 04/29/16 04/29/16 04:00 04:00 04:29 WBC 13.4 H RBC 2.56 L Hgb 6.9 L Hct 20.6 L MCV 81 L MCH 27 L MCHC RDW 16.2 H Plt Count 513 H Lymph % (Auto) 10.0 L [place] % (Auto) 12.0 H Lymph # [place] # 1.6 H Baso # Seg Neutrophils % 77.1 H Seg Neuts % (Manual) Lymphocytes % (Manual) Seg Neutrophils # 10.4 H Seg Neutrophils # Man Lymphocytes # (Manual) Monocytes # (Manual) Percent Retic PT INR APTT Heparin Anti-Xa Level POC ABG pH 7.501 H POC ABG pCO2 POC ABG pO2 76 L Sodium Potassium Chloride Carbon Dioxide BUN 27 H Creatinine Glucose 204 H POC Glucose Calcium 8.1 L Phosphorus Iron TIBC Lactate Dehydrogenase Total Creatine Kinase NT-Pro-B Natriuret Pep Total Protein Albumin Qpfmb-8-Xrhnsbmmz Rfiwi-6-Mgceyioqo Beta Globulins PEP Interpretation Cholesterol LDL Cholesterol Direct Vitamin B12 Urine Creatinine Crossmatch 04/29/16 04/29/16 04/29/16 06:03 10:05 10:16 WBC RBC Hgb Hct MCV MCH MCHC RDW Plt Count Lymph % (Auto) [place] % (Auto) Lymph # [place] # Baso # Seg Neutrophils % Seg Neuts % (Manual) Lymphocytes % (Manual) Seg Neutrophils # Seg Neutrophils # Man Lymphocytes # (Manual) Monocytes # (Manual) Percent Retic 3.68 H PT INR APTT Heparin Anti-Xa Level POC ABG pH POC ABG pCO2 POC ABG pO2 Sodium Potassium Chloride Carbon Dioxide BUN Creatinine Glucose POC Glucose 192 H Calcium Phosphorus Iron TIBC Lactate Dehydrogenase Total Creatine Kinase NT-Pro-B Natriuret Pep Total Protein Albumin Sqjth-9-Bdybnxmqn Ihble-8-Rbyfwcocg Beta Globulins PEP Interpretation Cholesterol LDL Cholesterol Direct Vitamin B12 Urine Creatinine Crossmatch See Detail 04/29/16 04/29/16 04/29/16 10:16 10:16 11:23 WBC RBC Hgb Hct MCV MCH MCHC RDW Plt Count Lymph % (Auto) [place] % (Auto) Lymph # [place] # Baso # Seg Neutrophils % Seg Neuts % (Manual) Lymphocytes % (Manual) Seg Neutrophils # Seg Neutrophils # Man Lymphocytes # (Manual) Monocytes # (Manual) Percent Retic PT INR APTT Heparin Anti-Xa Level POC ABG pH POC ABG pCO2 POC ABG pO2 Sodium Potassium Chloride Carbon Dioxide BUN Creatinine Glucose POC Glucose 116 H Calcium Phosphorus Iron 10 L TIBC 138 L Lactate Dehydrogenase 204 H Total Creatine Kinase NT-Pro-B Natriuret Pep Total Protein Albumin Lioft-6-Vrqowgcno Euvkh-6-Cmvfsbunc Beta Globulins PEP Interpretation Cholesterol LDL Cholesterol Direct Vitamin B12 1005 H Urine Creatinine Crossmatch 04/29/16 04/29/16 04/30/16 17:34 23:19 03:19 WBC RBC Hgb 9.0 L Hct 26.7 L D MCV MCH MCHC RDW Plt Count Lymph % (Auto) [place] % (Auto) Lymph # [place] # Baso # Seg Neutrophils % Seg Neuts % (Manual) Lymphocytes % (Manual) Seg Neutrophils # Seg Neutrophils # Man Lymphocytes # (Manual) Monocytes # (Manual) Percent Retic PT INR APTT Heparin Anti-Xa Level POC ABG pH POC ABG pCO2 POC ABG pO2 Sodium Potassium Chloride Carbon Dioxide BUN Creatinine Glucose POC Glucose 142 H 242 H Calcium Phosphorus Iron TIBC Lactate Dehydrogenase Total Creatine Kinase NT-Pro-B Natriuret Pep Total Protein Albumin Zjwzc-1-Iufxuxeee Ipahj-7-Bgdvqgxnm Beta Globulins PEP Interpretation Cholesterol LDL Cholesterol Direct Vitamin B12 Urine Creatinine Crossmatch 04/30/16 04/30/16 04/30/16 04:10 04:10 04:32 WBC 13.8 H RBC 3.54 L Hgb 9.3 L Hct 29.1 L MCV 82 L MCH 26 L MCHC RDW 16.5 H Plt Count 535 H Lymph % (Auto) 7.5 L [place] % (Auto) 13.8 H Lymph # 1.0 L [place] # 1.9 H Baso # Seg Neutrophils % 78.0 H Seg Neuts % (Manual) Lymphocytes % (Manual) Seg Neutrophils # 10.7 H Seg Neutrophils # Man Lymphocytes # (Manual) Monocytes # (Manual) Percent Retic PT INR APTT Heparin Anti-Xa Level POC ABG pH 7.519 H POC ABG pCO2 33.6 L POC ABG pO2 79 L Sodium 146 H Potassium Chloride Carbon Dioxide BUN Creatinine 0.7 L Glucose 242 H POC Glucose Calcium 8.3 L Phosphorus Iron TIBC Lactate Dehydrogenase Total Creatine Kinase NT-Pro-B Natriuret Pep Total Protein Albumin Tjupx-1-Zjrfsdtyx Nqiik-3-Auxsnhfzq Beta Globulins PEP Interpretation Cholesterol LDL Cholesterol Direct Vitamin B12 Urine Creatinine Crossmatch 04/30/16 04/30/16 04/30/16 05:33 11:23 17:26 WBC RBC Hgb Hct MCV MCH MCHC RDW Plt Count Lymph % (Auto) [place] % (Auto) Lymph # [place] # Baso # Seg Neutrophils % Seg Neuts % (Manual) Lymphocytes % (Manual) Seg Neutrophils # Seg Neutrophils # Man Lymphocytes # (Manual) Monocytes # (Manual) Percent Retic PT INR APTT Heparin Anti-Xa Level POC ABG pH POC ABG pCO2 POC ABG pO2 Sodium Potassium Chloride Carbon Dioxide BUN Creatinine Glucose POC Glucose 242 H 305 H 281 H Calcium Phosphorus Iron TIBC Lactate Dehydrogenase Total Creatine Kinase NT-Pro-B Natriuret Pep Total Protein Albumin Decuc-4-Gksnxnngb Zrvrw-2-Vptcgdtpw Beta Globulins PEP Interpretation Cholesterol LDL Cholesterol Direct Vitamin B12 Urine Creatinine Crossmatch 04/30/16 05/01/16 05/01/16 23:53 04:00 04:00 WBC 15.9 H RBC 2.99 L Hgb 7.9 L Hct 24.4 L MCV 82 L MCH 26 L MCHC RDW 16.9 H Plt Count 481 H Lymph % (Auto) 9.3 L [place] % (Auto) 15.0 H Lymph # [place] # 2.4 H Baso # Seg Neutrophils % 74.9 H Seg Neuts % (Manual) Lymphocytes % (Manual) Seg Neutrophils # 11.9 H Seg Neutrophils # Man Lymphocytes # (Manual) Monocytes # (Manual) Percent Retic PT INR APTT Heparin Anti-Xa Level POC ABG pH POC ABG pCO2 POC ABG pO2 Sodium 147 H Potassium Chloride 107.8 H Carbon Dioxide BUN 22 H Creatinine 0.7 L Glucose 229 H POC Glucose 207 H Calcium 8.2 L Phosphorus Iron TIBC Lactate Dehydrogenase Total Creatine Kinase NT-Pro-B Natriuret Pep Total Protein Albumin Uyaln-8-Aatxxnjof Bytpj-7-Mxgsncvrv Beta Globulins PEP Interpretation Cholesterol LDL Cholesterol Direct Vitamin B12 Urine Creatinine Crossmatch 05/01/16 05/01/16 05/01/16 05:12 07:41 12:33 WBC RBC Hgb Hct MCV MCH MCHC RDW Plt Count Lymph % (Auto) [place] % (Auto) Lymph # [place] # Baso # Seg Neutrophils % Seg Neuts % (Manual) Lymphocytes % (Manual) Seg Neutrophils # Seg Neutrophils # Man Lymphocytes # (Manual) Monocytes # (Manual) Percent Retic PT INR APTT Heparin Anti-Xa Level 0.16 L POC ABG pH POC ABG pCO2 POC ABG pO2 Sodium Potassium Chloride Carbon Dioxide BUN Creatinine Glucose POC Glucose 284 H 186 H Calcium Phosphorus Iron TIBC Lactate Dehydrogenase Total Creatine Kinase NT-Pro-B Natriuret Pep Total Protein Albumin Jsect-2-Pcmgrqysw Sgjwf-4-Nurankxie Beta Globulins PEP Interpretation Cholesterol LDL Cholesterol Direct Vitamin B12 Urine Creatinine Crossmatch 05/01/16 05/01/16 05/02/16 17:24 23:19 04:48 WBC 17.2 H RBC 3.09 L Hgb 8.1 L Hct 25.5 L MCV 83 L MCH 26 L MCHC RDW 17.3 H Plt Count 507 H Lymph % (Auto) 8.0 L [place] % (Auto) 13.6 H Lymph # [place] # 2.3 H Baso # Seg Neutrophils % 77.5 H Seg Neuts % (Manual) Lymphocytes % (Manual) Seg Neutrophils # 13.4 H Seg Neutrophils # Man Lymphocytes # (Manual) Monocytes # (Manual) Percent Retic PT INR APTT Heparin Anti-Xa Level POC ABG pH POC ABG pCO2 POC ABG pO2 Sodium Potassium Chloride Carbon Dioxide BUN Creatinine Glucose POC Glucose 171 H 132 H Calcium Phosphorus Iron TIBC Lactate Dehydrogenase Total Creatine Kinase NT-Pro-B Natriuret Pep Total Protein Albumin Kgarb-3-Duqbaoygs Wrfhf-6-Mchcgkpaq Beta Globulins PEP Interpretation Cholesterol LDL Cholesterol Direct Vitamin B12 Urine Creatinine Crossmatch 05/02/16 05/02/16 05/02/16 04:48 04:48 05:42 WBC RBC Hgb Hct MCV MCH MCHC RDW Plt Count Lymph % (Auto) [place] % (Auto) Lymph # [place] # Baso # Seg Neutrophils % Seg Neuts % (Manual) Lymphocytes % (Manual) Seg Neutrophils # Seg Neutrophils # Man Lymphocytes # (Manual) Monocytes # (Manual) Percent Retic PT INR APTT Heparin Anti-Xa Level 0.19 L POC ABG pH POC ABG pCO2 POC ABG pO2 Sodium 149 H Potassium Chloride 109.9 H Carbon Dioxide BUN 24 H Creatinine Glucose 224 H POC Glucose 253 H Calcium 8.2 L Phosphorus Iron TIBC Lactate Dehydrogenase Total Creatine Kinase NT-Pro-B Natriuret Pep Total Protein Albumin Thtbm-9-Qgqjexujr Cvqqn-1-Mnhomlbrp Beta Globulins PEP Interpretation Cholesterol LDL Cholesterol Direct Vitamin B12 Urine Creatinine Crossmatch
[2016-05-02] MEDS: NORMODYNE PO SCH ×3 (14:00→20:14)
[2016-05-02] MEDS: HEPARIN/ 0.45% NACL-25,000 UNIT/500 ML 500 ML IV SCH (18:45)
[2016-05-03] MEDS: DUONEB 0.5 MG-3 MG/3 ML SOLN IH SCH ×4 (01:54→21:00)
[2016-05-03] MEDS: TYLENOL PO PRN ×4 (03:50→21:42)
[2016-05-03 04:48] LABS: Hematocrit 25.7 % (35.5-45.6); Hemoglobin 8.6 gm/dl (11.8-15.2); Mean Corpuscular HGB Conc 34 % (32-34); Mean Corpuscular Hemoglobin 28 pg (28-32); Mean Corpuscular Volume 82 fl (84-94); Platelet Count 525 K/mm3 (140-440); Red Blood Count 3.15 M/mm3 (3.65-5.03); Red Cell Distribution Width 17.4 % (13.2-15.2); White Blood Count 19.1 K/mm3 (4.5-11.0)
[2016-05-03 05:00] LABS: BUN/Creatinine Ratio 34.28; Blood Urea Nitrogen 24 mg/dL (9-20); Calcium 8.6 mg/dL (8.4-10.2); Carbon Dioxide 27 mmol/L (22-30); Chloride 112.9 mmol/L (98-107); Glucose 303 mg/dL (75-100); Potassium 4.3 mmol/L (3.6-5.0); Sodium 151 mmol/L (137-145)
[2016-05-03 05:02] LABS: Anion Gap 15 mmol/L
[2016-05-03] MEDS: NOVOLOG SUB-Q SCH ×4 (05:15→18:24)
[2016-05-03 06:52] LABS: Anisocytosis 1+; Blastocytes % (Manual) 0 %; Eosinophils % (Manual) 0 % (0.0-4.3); Poikilocytosis Few; Target Cells Few
[2016-05-03 06:53] LABS: Diff Status Complete; Spherocytes Rare
[2016-05-03] MEDS: NORMODYNE PO SCH ×3 (08:04→21:50)
[2016-05-03] MEDS: NORVASC PO SCH (10:00)
[2016-05-03] MEDS: CORDARONE PO SCH (10:00)
[2016-05-03] MEDS: BABY ASPIRIN PO SCH (10:00)
[2016-05-03] MEDS: KEPPRA PO SCH ×2 (10:00→21:51)
[2016-05-03] MEDS: PEPCID PO SCH ×2 (10:00→21:51)
[2016-05-03] MEDS: LEVEMIR SUB-Q SCH (10:01)
[2016-05-03] MEDS: ZESTRIL PO SCH ×2 (10:04→21:50)
--- NOTE | 2016-05-03 10:37 | Progress Note ---
Assessment and Plan - Patient Problems (1) Acute renal failure Diagnosis Date: 04/26/16 Current Visit: Yes Status: Acute (2) Acute respiratory failure Diagnosis Date: 04/26/16 Current Visit: Yes Status: Acute (3) Altered mental status Current Visit: Yes Status: Acute Qualifiers: Qualified Code(s): R41.82 - Altered mental status, unspecified (4) CAD (coronary artery disease) Diagnosis Date: 04/26/16 Current Visit: Yes Status: Acute (5) Diabetes Current Visit: Yes Status: Acute (6) Encephalopathy Current Visit: Yes Status: Acute (7) Acute ST elevation myocardial infarction (STEMI) Current Visit: No Status: Acute Qualifiers: Qualified Code(s): I21.02 - ST elevation (STEMI) myocardial infarction involving left anterior descending coronary artery (8) CHF (congestive heart failure), NYHA class III Current Visit: Yes Status: Acute Subjective Principal diagnosis: CVA, acute respiratory failure Interval history: on vent Objective Vital Signs - 12hr 05/02/16 05/02/16 05/02/16 23:01 23:25 23:28 Temperature Pulse Rate 118 H 113 H Pulse Rate [ Anterior Bilateral Throughout] Respiratory 22 Rate Respiratory Rate [Anterior Bilateral Throughout] Blood Pressure 102/59 108/64 O2 Sat by Pulse 98 99 Oximetry O2 Sat by Pulse 99 Oximetry [ Assessment] 05/03/16 05/03/16 05/03/16 00:00 01:01 01:54 Temperature 101.9 F H Pulse Rate 119 H 120 H Pulse Rate [ 118 H Anterior Bilateral Throughout] Respiratory 22 22 Rate Respiratory 20 Rate [Anterior Bilateral Throughout] Blood Pressure 118/67 118/67 O2 Sat by Pulse 100 99 Oximetry O2 Sat by Pulse Oximetry [ Assessment] 05/03/16 05/03/16 05/03/16 02:01 02:02 03:00 Temperature Pulse Rate 119 H 118 H Pulse Rate [ 117 H Anterior Bilateral Throughout] Respiratory 17 21 Rate Respiratory 20 Rate [Anterior Bilateral Throughout] Blood Pressure 107/67 113/68 O2 Sat by Pulse 99 99 Oximetry O2 Sat by Pulse Oximetry [ Assessment] 05/03/16 05/03/16 05/03/16 03:50 04:01 04:40 Temperature Pulse Rate 118 H 121 H Pulse Rate [ Anterior Bilateral Throughout] Respiratory 19 20 Rate Respiratory Rate [Anterior Bilateral Throughout] Blood Pressure 113/68 120/68 O2 Sat by Pulse 99 98 Oximetry O2 Sat by Pulse Oximetry [ Assessment] 05/03/16 05/03/16 05/03/16 05:00 05:01 06:00 Temperature 101.3 F H Pulse Rate 124 H 122 H 123 H Pulse Rate [ Anterior Bilateral Throughout] Respiratory 18 21 21 Rate Respiratory Rate [Anterior Bilateral Throughout] Blood Pressure 117/69 120/68 119/74 O2 Sat by Pulse 90 98 98 Oximetry O2 Sat by Pulse Oximetry [ Assessment] 05/03/16 05/03/16 05/03/16 07:01 07:58 08:01 Temperature Pulse Rate 126 H 123 H 124 H Pulse Rate [ 123 H Anterior Bilateral Throughout] Respiratory 23 23 Rate Respiratory 23 Rate [Anterior Bilateral Throughout] Blood Pressure 119/74 126/83 126/83 O2 Sat by Pulse 99 99 98 Oximetry O2 Sat by Pulse Oximetry [ Assessment] 05/03/16 05/03/16 05/03/16 08:04 08:40 08:43 Temperature Pulse Rate 124 H 99 H Pulse Rate [ 124 H Anterior Bilateral Throughout] Respiratory 40 H Rate Respiratory 17 Rate [Anterior Bilateral Throughout] Blood Pressure 126/83 126/83 O2 Sat by Pulse 99 Oximetry O2 Sat by Pulse 99 Oximetry [ Assessment] 05/03/16 05/03/16 05/03/16 08:50 10:00 10:04 Temperature Pulse Rate 97 H 85 85 Pulse Rate [ Anterior Bilateral Throughout] Respiratory Rate Respiratory Rate [Anterior Bilateral Throughout] Blood Pressure 126/83 121/73 121/73 O2 Sat by Pulse 99 Oximetry O2 Sat by Pulse Oximetry [ Assessment] Constitutional: no acute distress, lethargic, other (opens eyes to tactile stimuli but not following commands on vent ac 12 fio2 25% tv 500) Eyes: non-icteric ENT: other (tracheotomy) Neck: supple Effort: normal Ascultation: Bilateral: rhonchi (occasional) Percussion: Bilateral: not dull Cardiovascular: regular rate and rhythm Gastrointestinal: normoactive bowel sounds, soft, non-tender Extremities: no cyanosis, no edema Neurologic: other (GCS 4 on vent) CBC and BMP: 05/03/16 04:31 05/03/16 04:31 ABG, PT/INR, D-dimer: ABG POC ABG pH 7.519 (7.35-7.45) H 04/30/16 04:32 POC ABG pCO2 33.6 (35-45) L 04/30/16 04:32 POC ABG pO2 79 (80-105) L 04/30/16 04:32 POC ABG HCO3 27.4 04/30/16 04:32 POC ABG Total CO2 28 04/30/16 04:32 POC ABG O2 Sat 97 04/30/16 04:32 PT/INR, D-dimer PT 15.9 Sec. (12.2-14.9) H 04/23/16 10:45 INR 1.28 (0.87-1.13) H 04/23/16 10:45 Abnormal lab findings: Abnormal Labs 03/24/16 03/24/16 03/24/16 17:58 20:25 23:23 WBC RBC Hgb Hct MCV MCH MCHC RDW Plt Count Lymph % (Auto) [place] % (Auto) Lymph # [place] # Baso # Seg Neutrophils % Seg Neuts % (Manual) Lymphocytes % (Manual) Monocytes % (Manual) Seg Neutrophils # Seg Neutrophils # Man Lymphocytes # (Manual) Monocytes # (Manual) Basophils # (Manual) Percent Retic PT INR APTT Heparin Anti-Xa Level POC ABG pH POC ABG pCO2 POC ABG pO2 Sodium 169 H* Potassium 3.5 L Chloride 130.3 H Carbon Dioxide BUN 28 H Creatinine 1.8 H Glucose POC Glucose 112 H Calcium Phosphorus Iron TIBC Lactate Dehydrogenase Total Creatine Kinase NT-Pro-B Natriuret Pep Total Protein Albumin Rewqu-0-Uceufkvff Qiigw-2-Butnoflbc Beta Globulins PEP Interpretation Cholesterol 221 H LDL Cholesterol Direct 146 H Vitamin B12 Urine Creatinine Crossmatch 03/25/16 03/25/16 03/25/16 05:56 05:56 05:56 WBC 21.3 H RBC 6.32 H Hgb 16.7 H Hct 52.7 H MCV 83 L MCH 27 L MCHC RDW Plt Count Lymph % (Auto) [place] % (Auto) Lymph # [place] # Baso # Seg Neutrophils % Seg Neuts % (Manual) 91.0 H Lymphocytes % (Manual) 4.0 L Monocytes % (Manual) Seg Neutrophils # Seg Neutrophils # Man 19.4 H Lymphocytes # (Manual) 0.9 L Monocytes # (Manual) 0.9 H Basophils # (Manual) Percent Retic PT INR APTT Heparin Anti-Xa Level POC ABG pH POC ABG pCO2 POC ABG pO2 Sodium 172 H* Potassium 3.5 L Chloride 130.4 H Carbon Dioxide BUN 29 H Creatinine 1.8 H Glucose 187 H POC Glucose Calcium Phosphorus Iron TIBC Lactate Dehydrogenase 460 H Total Creatine Kinase NT-Pro-B Natriuret Pep Total Protein Albumin Mcmwn-7-Wwrbmwwev Auret-3-Gnlspraff Beta Globulins PEP Interpretation Cholesterol LDL Cholesterol Direct Vitamin B12 Urine Creatinine Crossmatch 03/25/16 03/25/16 03/25/16 07:55 12:19 13:00 WBC RBC Hgb Hct MCV MCH MCHC RDW Plt Count Lymph % (Auto) [place] % (Auto) Lymph # [place] # Baso # Seg Neutrophils % Seg Neuts % (Manual) Lymphocytes % (Manual) Monocytes % (Manual) Seg Neutrophils # Seg Neutrophils # Man Lymphocytes # (Manual) Monocytes # (Manual) Basophils # (Manual) Percent Retic PT INR APTT Heparin Anti-Xa Level POC ABG pH POC ABG pCO2 POC ABG pO2 Sodium Potassium Chloride Carbon Dioxide BUN Creatinine Glucose POC Glucose 231 H 314 H Calcium Phosphorus Iron TIBC Lactate Dehydrogenase Total Creatine Kinase NT-Pro-B Natriuret Pep Total Protein Albumin 3.4 L Syayd-6-Uftumsiqx 0.4 H Bbxmi-3-Vrtzjyafl 1.1 H Beta Globulins 0.6 H PEP Interpretation see below H Cholesterol LDL Cholesterol Direct Vitamin B12 Urine Creatinine Crossmatch 03/25/16 03/25/16 03/26/16 16:41 22:45 08:32 WBC RBC Hgb Hct MCV MCH MCHC RDW Plt Count Lymph % (Auto) [place] % (Auto) Lymph # [place] # Baso # Seg Neutrophils % Seg Neuts % (Manual) Lymphocytes % (Manual) Monocytes % (Manual) Seg Neutrophils # Seg Neutrophils # Man Lymphocytes # (Manual) Monocytes # (Manual) Basophils # (Manual) Percent Retic PT INR APTT Heparin Anti-Xa Level POC ABG pH POC ABG pCO2 POC ABG pO2 Sodium Potassium Chloride Carbon Dioxide BUN Creatinine Glucose POC Glucose 444 H 326 H 360 H Calcium Phosphorus Iron TIBC Lactate Dehydrogenase Total Creatine Kinase NT-Pro-B Natriuret Pep Total Protein Albumin Bervj-5-Rudaftirm [place]-9-Adjryklru Beta Globulins PEP Interpretation Cholesterol LDL Cholesterol Direct Vitamin B12 Urine Creatinine Crossmatch 03/26/16 03/26/16 03/26/16 12:38 15:33 15:47 WBC RBC Hgb Hct MCV MCH MCHC RDW Plt Count Lymph % (Auto) [place] % (Auto) Lymph # [place] # Baso # Seg Neutrophils % Seg Neuts % (Manual) Lymphocytes % (Manual) Monocytes % (Manual) Seg Neutrophils # Seg Neutrophils # Man Lymphocytes # (Manual) Monocytes # (Manual) Basophils # (Manual) Percent Retic PT INR APTT Heparin Anti-Xa Level POC ABG pH 7.511 H POC ABG pCO2 26.5 L POC ABG pO2 70 L Sodium Potassium Chloride Carbon Dioxide BUN Creatinine Glucose POC Glucose 280 H 174 H Calcium Phosphorus Iron TIBC Lactate Dehydrogenase Total Creatine Kinase NT-Pro-B Natriuret Pep Total Protein Albumin Zrzlq-3-Xmxeuefqf Hrtse-5-Nemvzxmxd Beta Globulins PEP Interpretation Cholesterol LDL Cholesterol Direct Vitamin B12 Urine Creatinine Crossmatch 03/26/16 03/26/16 03/26/16 16:47 16:47 18:51 WBC 14.0 H RBC 5.17 H Hgb Hct MCV MCH 26 L MCHC 31 L RDW Plt Count 139 L Lymph % (Auto) [place] % (Auto) Lymph # [place] # Baso # Seg Neutrophils % Seg Neuts % (Manual) Lymphocytes % (Manual) Monocytes % (Manual) Seg Neutrophils # Seg Neutrophils # Man Lymphocytes # (Manual) Monocytes # (Manual) Basophils # (Manual) Percent Retic PT INR APTT Heparin Anti-Xa Level POC ABG pH POC ABG pCO2 33.9 L POC ABG pO2 150 H Sodium 164 H* Potassium 3.4 L Chloride 128.5 H Carbon Dioxide BUN 30 H Creatinine 2.2 H Glucose 121 H POC Glucose Calcium 8.1 L Phosphorus Iron TIBC Lactate Dehydrogenase Total Creatine Kinase NT-Pro-B Natriuret Pep Total Protein Albumin Uleuh-1-Lxzmcatvy Kslsm-9-Yabpcytra Beta Globulins PEP Interpretation Cholesterol LDL Cholesterol Direct Vitamin B12 Urine Creatinine Crossmatch 03/27/16 03/27/16 03/27/16 02:19 05:47 06:02 WBC RBC Hgb Hct MCV MCH MCHC RDW Plt Count Lymph % (Auto) [place] % (Auto) Lymph # [place] # Baso # Seg Neutrophils % Seg Neuts % (Manual) Lymphocytes % (Manual) Monocytes % (Manual) Seg Neutrophils # Seg Neutrophils # Man Lymphocytes # (Manual) Monocytes # (Manual) Basophils # (Manual) Percent Retic PT INR APTT Heparin Anti-Xa Level POC ABG pH POC ABG pCO2 27.3 L 30.3 L POC ABG pO2 50 L 112 H Sodium 158 H Potassium Chloride 126.7 H Carbon Dioxide 20 L BUN 25 H Creatinine 1.7 H Glucose POC Glucose Calcium 7.0 L Phosphorus Iron TIBC Lactate Dehydrogenase Total Creatine Kinase NT-Pro-B Natriuret Pep Total Protein Albumin Hnfra-3-Krybywbpv Wvcsn-5-Ncinltkcs Beta Globulins PEP Interpretation Cholesterol LDL Cholesterol Direct Vitamin B12 Urine Creatinine Crossmatch 03/27/16 03/27/16 03/27/16 07:51 09:20 11:45 WBC 14.2 H RBC Hgb Hct MCV 83 L MCH 27 L MCHC RDW Plt Count 113 L Lymph % (Auto) [place] % (Auto) Lymph # [place] # Baso # Seg Neutrophils % Seg Neuts % (Manual) Lymphocytes % (Manual) Monocytes % (Manual) Seg Neutrophils # Seg Neutrophils # Man Lymphocytes # (Manual) Monocytes # (Manual) Basophils # (Manual) Percent Retic PT INR APTT Heparin Anti-Xa Level POC ABG pH POC ABG pCO2 POC ABG pO2 Sodium Potassium Chloride Carbon Dioxide BUN Creatinine Glucose POC Glucose 124 H 241 H Calcium Phosphorus Iron TIBC Lactate Dehydrogenase Total Creatine Kinase NT-Pro-B Natriuret Pep Total Protein Albumin Aklid-8-Brqoagqcn Hogva-0-Pqxbmfvem Beta Globulins PEP Interpretation Cholesterol LDL Cholesterol Direct Vitamin B12 Urine Creatinine Crossmatch 03/27/16 03/27/16 03/28/16 16:39 22:03 03:29 WBC RBC Hgb Hct MCV MCH MCHC RDW Plt Count Lymph % (Auto) [place] % (Auto) Lymph # [place] # Baso # Seg Neutrophils % Seg Neuts % (Manual) Lymphocytes % (Manual) Monocytes % (Manual) Seg Neutrophils # Seg Neutrophils # Man Lymphocytes # (Manual) Monocytes # (Manual) Basophils # (Manual) Percent Retic PT INR APTT Heparin Anti-Xa Level POC ABG pH POC ABG pCO2 POC ABG pO2 Sodium Potassium Chloride Carbon Dioxide BUN Creatinine Glucose POC Glucose 266 H 167 H 241 H Calcium Phosphorus Iron TIBC Lactate Dehydrogenase Total Creatine Kinase NT-Pro-B Natriuret Pep Total Protein Albumin Lesyx-7-Hivwvovxh Czhmj-5-Ujleqlzzl Beta Globulins PEP Interpretation Cholesterol LDL Cholesterol Direct Vitamin B12 Urine Creatinine Crossmatch 03/28/16 03/28/16 03/28/16 05:00 05:00 05:00 WBC RBC Hgb Hct MCV 83 L MCH 27 L MCHC RDW Plt Count 106 L Lymph % (Auto) [place] % (Auto) 10.1 H Lymph # [place] # 1.0 H Baso # Seg Neutrophils % 75.1 H Seg Neuts % (Manual) Lymphocytes % (Manual) Monocytes % (Manual) Seg Neutrophils # Seg Neutrophils # Man Lymphocytes # (Manual) Monocytes # (Manual) Basophils # (Manual) Percent Retic PT INR APTT Heparin Anti-Xa Level POC ABG pH POC ABG pCO2 POC ABG pO2 Sodium 147 H D Potassium 3.1 L D Chloride 112.3 H Carbon Dioxide 21 L BUN Creatinine Glucose 208 H POC Glucose Calcium 7.0 L Phosphorus 2.2 L Iron TIBC Lactate Dehydrogenase Total Creatine Kinase NT-Pro-B Natriuret Pep Total Protein Albumin Uzeza-1-Tfpkvdoup Tvaec-8-Emjgdhqco Beta Globulins PEP Interpretation Cholesterol LDL Cholesterol Direct Vitamin B12 Urine Creatinine Crossmatch 03/28/16 03/28/16 03/28/16 05:14 08:41 10:56 WBC RBC Hgb Hct MCV MCH MCHC RDW Plt Count Lymph % (Auto) [place] % (Auto) Lymph # [place] # Baso # Seg Neutrophils % Seg Neuts % (Manual) Lymphocytes % (Manual) Monocytes % (Manual) Seg Neutrophils # Seg Neutrophils # Man Lymphocytes # (Manual) Monocytes # (Manual) Basophils # (Manual) Percent Retic PT INR APTT Heparin Anti-Xa Level POC ABG pH 7.457 H POC ABG pCO2 29.7 L 27.7 L POC ABG pO2 Sodium Potassium Chloride Carbon Dioxide BUN Creatinine Glucose POC Glucose 228 H Calcium Phosphorus Iron TIBC Lactate Dehydrogenase Total Creatine Kinase NT-Pro-B Natriuret Pep Total Protein Albumin Quyje-0-Ymdekgqlv Dwswo-6-Gwdyebgqb Beta Globulins PEP Interpretation Cholesterol LDL Cholesterol Direct Vitamin B12 Urine Creatinine Crossmatch 03/28/16 03/28/16 03/28/16 11:37 13:29 16:22 WBC RBC Hgb Hct MCV MCH MCHC RDW Plt Count Lymph % (Auto) [place] % (Auto) Lymph # [place] # Baso # Seg Neutrophils % Seg Neuts % (Manual) Lymphocytes % (Manual) Monocytes % (Manual) Seg Neutrophils # Seg Neutrophils # Man Lymphocytes # (Manual) Monocytes # (Manual) Basophils # (Manual) Percent Retic PT INR APTT Heparin Anti-Xa Level POC ABG pH POC ABG pCO2 POC ABG pO2 Sodium Potassium Chloride Carbon Dioxide BUN Creatinine Glucose POC Glucose 226 H 200 H Calcium Phosphorus Iron TIBC Lactate Dehydrogenase Total Creatine Kinase 356 H NT-Pro-B Natriuret Pep Total Protein Albumin Vpppn-7-Gcftjyoys Phmxe-3-Vbosmgcei Beta Globulins PEP Interpretation Cholesterol LDL Cholesterol Direct Vitamin B12 Urine Creatinine Crossmatch 03/28/16 03/29/16 03/29/16 21:48 04:50 04:50 WBC RBC Hgb 11.5 L Hct 35.3 L MCV 81 L MCH 26 L MCHC RDW Plt Count 97 L Lymph % (Auto) [place] % (Auto) 11.7 H Lymph # [place] # 1.1 H Baso # Seg Neutrophils % Seg Neuts % (Manual) Lymphocytes % (Manual) Monocytes % (Manual) Seg Neutrophils # Seg Neutrophils # Man Lymphocytes # (Manual) Monocytes # (Manual) Basophils # (Manual) Percent Retic PT INR APTT Heparin Anti-Xa Level POC ABG pH POC ABG pCO2 POC ABG pO2 Sodium 136 L D Potassium 3.3 L Chloride Carbon Dioxide 20 L BUN Creatinine Glucose 386 H POC Glucose 188 H Calcium 6.8 L Phosphorus 1.6 L D Iron TIBC Lactate Dehydrogenase Total Creatine Kinase NT-Pro-B Natriuret Pep Total Protein Albumin Rkndh-5-Adlixovop Hvsmv-4-Sonmllzrw Beta Globulins PEP Interpretation Cholesterol LDL Cholesterol Direct Vitamin B12 Urine Creatinine Crossmatch 03/29/16 03/29/16 03/29/16 08:10 11:12 16:09 WBC RBC Hgb Hct MCV MCH MCHC RDW Plt Count Lymph % (Auto) [place] % (Auto) Lymph # [place] # Baso # Seg Neutrophils % Seg Neuts % (Manual) Lymphocytes % (Manual) Monocytes % (Manual) Seg Neutrophils # Seg Neutrophils # Man Lymphocytes # (Manual) Monocytes # (Manual) Basophils # (Manual) Percent Retic PT INR APTT Heparin Anti-Xa Level POC ABG pH POC ABG pCO2 POC ABG pO2 Sodium Potassium Chloride Carbon Dioxide BUN Creatinine Glucose POC Glucose 230 H 180 H 46 L Calcium Phosphorus Iron TIBC Lactate Dehydrogenase Total Creatine Kinase NT-Pro-B Natriuret Pep Total Protein Albumin Jjcms-8-Wbmzbrwjo Grope-0-Ztlkmtmuy Beta Globulins PEP Interpretation Cholesterol LDL Cholesterol Direct Vitamin B12 Urine Creatinine Crossmatch 03/29/16 03/29/16 03/30/16 16:12 18:15 02:53 WBC RBC Hgb Hct MCV MCH MCHC RDW Plt Count Lymph % (Auto) [place] % (Auto) Lymph # [place] # Baso # Seg Neutrophils % Seg Neuts % (Manual) Lymphocytes % (Manual) Monocytes % (Manual) Seg Neutrophils # Seg Neutrophils # Man Lymphocytes # (Manual) Monocytes # (Manual) Basophils # (Manual) Percent Retic PT INR APTT Heparin Anti-Xa Level POC ABG pH POC ABG pCO2 POC ABG pO2 Sodium Potassium Chloride Carbon Dioxide BUN Creatinine Glucose POC Glucose 52 L 118 H 130 H Calcium Phosphorus Iron TIBC Lactate Dehydrogenase Total Creatine Kinase NT-Pro-B Natriuret Pep Total Protein Albumin Kuzjr-3-Jfcheibbr Uhvgf-7-Onpwbiklv Beta Globulins PEP Interpretation Cholesterol LDL Cholesterol Direct Vitamin B12 Urine Creatinine Crossmatch 03/30/16 03/30/16 03/30/16 04:00 04:00 05:29 WBC RBC Hgb Hct MCV 81 L MCH 26 L MCHC RDW Plt Count 116 L Lymph % (Auto) 10.8 L [place] % (Auto) 13.1 H Lymph # 1.0 L [place] # 1.3 H Baso # Seg Neutrophils % 74.2 H Seg Neuts % (Manual) Lymphocytes % (Manual) Monocytes % (Manual) Seg Neutrophils # Seg Neutrophils # Man Lymphocytes # (Manual) Monocytes # (Manual) Basophils # (Manual) Percent Retic PT INR APTT Heparin Anti-Xa Level POC ABG pH 7.522 H POC ABG pCO2 22.7 L POC ABG pO2 137 H Sodium 147 H D Potassium Chloride 115.5 H Carbon Dioxide 20 L BUN Creatinine Glucose 116 H POC Glucose Calcium 7.6 L Phosphorus 2.3 L D Iron TIBC Lactate Dehydrogenase Total Creatine Kinase NT-Pro-B Natriuret Pep Total Protein Albumin Ewrkb-7-Solekoauh Qzbrr-1-Mkytsdhix Beta Globulins PEP Interpretation Cholesterol LDL Cholesterol Direct Vitamin B12 Urine Creatinine Crossmatch 03/30/16 03/30/16 03/30/16 05:47 08:05 08:59 WBC RBC Hgb Hct MCV MCH MCHC RDW Plt Count Lymph % (Auto) [place] % (Auto) Lymph # [place] # Baso # Seg Neutrophils % Seg Neuts % (Manual) Lymphocytes % (Manual) Monocytes % (Manual) Seg Neutrophils # Seg Neutrophils # Man Lymphocytes # (Manual) Monocytes # (Manual) Basophils # (Manual) Percent Retic PT INR APTT Heparin Anti-Xa Level POC ABG pH POC ABG pCO2 26.2 L POC ABG pO2 115 H Sodium Potassium Chloride Carbon Dioxide BUN Creatinine Glucose POC Glucose 138 H 171 H Calcium Phosphorus Iron TIBC Lactate Dehydrogenase Total Creatine Kinase NT-Pro-B Natriuret Pep Total Protein Albumin Phmpa-8-Baqkqugbb Qciet-6-Vhlvutdnn Beta Globulins PEP Interpretation Cholesterol LDL Cholesterol Direct Vitamin B12 Urine Creatinine Crossmatch 03/30/16 03/30/16 03/30/16 12:11 12:11 16:39 WBC RBC Hgb Hct MCV MCH MCHC RDW Plt Count Lymph % (Auto) [place] % (Auto) Lymph # [place] # Baso # Seg Neutrophils % Seg Neuts % (Manual) Lymphocytes % (Manual) Monocytes % (Manual) Seg Neutrophils # Seg Neutrophils # Man Lymphocytes # (Manual) Monocytes # (Manual) Basophils # (Manual) Percent Retic PT INR APTT Heparin Anti-Xa Level POC ABG pH 7.476 H POC ABG pCO2 29.0 L POC ABG pO2 Sodium Potassium Chloride Carbon Dioxide BUN Creatinine Glucose POC Glucose 142 H 59 L Calcium Phosphorus Iron TIBC Lactate Dehydrogenase Total Creatine Kinase NT-Pro-B Natriuret Pep Total Protein Albumin Jtktn-1-Heapksrjx Ixlao-6-Ndjrknieb Beta Globulins PEP Interpretation Cholesterol LDL Cholesterol Direct Vitamin B12 Urine Creatinine Crossmatch 03/30/16 03/30/16 03/31/16 18:41 21:59 05:02 WBC RBC Hgb Hct MCV MCH MCHC RDW Plt Count Lymph % (Auto) [place] % (Auto) Lymph # [place] # Baso # Seg Neutrophils % Seg Neuts % (Manual) Lymphocytes % (Manual) Monocytes % (Manual) Seg Neutrophils # Seg Neutrophils # Man Lymphocytes # (Manual) Monocytes # (Manual) Basophils # (Manual) Percent Retic PT INR APTT Heparin Anti-Xa Level POC ABG pH 7.519 H POC ABG pCO2 21.8 L POC ABG pO2 142 H Sodium Potassium Chloride Carbon Dioxide BUN Creatinine Glucose POC Glucose 145 H 154 H Calcium Phosphorus Iron TIBC Lactate Dehydrogenase Total Creatine Kinase NT-Pro-B Natriuret Pep Total Protein Albumin Sbmfg-5-Hstpzqmmg Bfcwz-9-Imyoxenxi Beta Globulins PEP Interpretation Cholesterol LDL Cholesterol Direct Vitamin B12 Urine Creatinine Crossmatch 03/31/16 03/31/16 03/31/16 05:15 05:15 05:15 WBC 13.4 H RBC 5.21 H Hgb Hct MCV 81 L MCH 26 L MCHC RDW Plt Count Lymph % (Auto) 9.5 L [place] % (Auto) 14.0 H Lymph # [place] # 1.9 H Baso # Seg Neutrophils % 75.0 H Seg Neuts % (Manual) Lymphocytes % (Manual) Monocytes % (Manual) Seg Neutrophils # 10.1 H Seg Neutrophils # Man Lymphocytes # (Manual) Monocytes # (Manual) Basophils # (Manual) Percent Retic PT INR APTT Heparin Anti-Xa Level POC ABG pH POC ABG pCO2 POC ABG pO2 Sodium Potassium Chloride 108.5 H Carbon Dioxide 19 L BUN Creatinine Glucose 188 H POC Glucose Calcium Phosphorus Iron TIBC Lactate Dehydrogenase Total Creatine Kinase NT-Pro-B Natriuret Pep 1089 H Total Protein Albumin Gutkx-1-Uwkhequed Lcgzw-0-Bzmcomgwj Beta Globulins PEP Interpretation Cholesterol LDL Cholesterol Direct Vitamin B12 Urine Creatinine Crossmatch 03/31/16 03/31/16 03/31/16 07:23 11:12 15:20 WBC RBC Hgb Hct MCV MCH MCHC RDW Plt Count Lymph % (Auto) [place] % (Auto) Lymph # [place] # Baso # Seg Neutrophils % Seg Neuts % (Manual) Lymphocytes % (Manual) Monocytes % (Manual) Seg Neutrophils # Seg Neutrophils # Man Lymphocytes # (Manual) Monocytes # (Manual) Basophils # (Manual) Percent Retic PT INR APTT Heparin Anti-Xa Level POC ABG pH POC ABG pCO2 POC ABG pO2 Sodium Potassium Chloride Carbon Dioxide BUN Creatinine Glucose POC Glucose 233 H 228 H 208 H Calcium Phosphorus Iron TIBC Lactate Dehydrogenase Total Creatine Kinase NT-Pro-B Natriuret Pep Total Protein Albumin Eqvwp-2-Kqsrqiqyf Vlnng-6-Mrbxbbqcc Beta Globulins PEP Interpretation Cholesterol LDL Cholesterol Direct Vitamin B12 Urine Creatinine Crossmatch 03/31/16 04/01/16 04/01/16 21:27 04:41 05:35 WBC 12.1 H RBC Hgb Hct MCV 81 L MCH 26 L MCHC RDW Plt Count Lymph % (Auto) 8.5 L [place] % (Auto) 14.0 H Lymph # 1.0 L [place] # 1.7 H Baso # Seg Neutrophils % 76.2 H Seg Neuts % (Manual) Lymphocytes % (Manual) Monocytes % (Manual) Seg Neutrophils # 9.2 H Seg Neutrophils # Man Lymphocytes # (Manual) Monocytes # (Manual) Basophils # (Manual) Percent Retic PT INR APTT Heparin Anti-Xa Level POC ABG pH 7.455 H POC ABG pCO2 31.0 L POC ABG pO2 Sodium Potassium Chloride Carbon Dioxide BUN Creatinine Glucose POC Glucose 162 H Calcium Phosphorus Iron TIBC Lactate Dehydrogenase Total Creatine Kinase NT-Pro-B Natriuret Pep Total Protein Albumin Emxhc-6-Mfjvvyzyn Sbqtu-1-Jnwuzmtgj Beta Globulins PEP Interpretation Cholesterol LDL Cholesterol Direct Vitamin B12 Urine Creatinine Crossmatch 04/01/16 04/01/16 04/01/16 05:35 08:44 12:49 WBC RBC Hgb Hct MCV MCH MCHC RDW Plt Count Lymph % (Auto) [place] % (Auto) Lymph # [place] # Baso # Seg Neutrophils % Seg Neuts % (Manual) Lymphocytes % (Manual) Monocytes % (Manual) Seg Neutrophils # Seg Neutrophils # Man Lymphocytes # (Manual) Monocytes # (Manual) Basophils # (Manual) Percent Retic PT INR APTT Heparin Anti-Xa Level POC ABG pH POC ABG pCO2 POC ABG pO2 Sodium Potassium Chloride Carbon Dioxide BUN Creatinine Glucose 256 H POC Glucose 257 H 279 H Calcium 8.0 L Phosphorus Iron TIBC Lactate Dehydrogenase Total Creatine Kinase NT-Pro-B Natriuret Pep 1205 H Total Protein Albumin Bzjot-7-Kvikuwyms Tbrml-2-Cvoswvrxn Beta Globulins PEP Interpretation Cholesterol LDL Cholesterol Direct Vitamin B12 Urine Creatinine Crossmatch 04/01/16 04/02/16 04/02/16 18:12 00:42 04:17 WBC RBC Hgb Hct MCV MCH MCHC RDW Plt Count Lymph % (Auto) [place] % (Auto) Lymph # [place] # Baso # Seg Neutrophils % Seg Neuts % (Manual) Lymphocytes % (Manual) Monocytes % (Manual) Seg Neutrophils # Seg Neutrophils # Man Lymphocytes # (Manual) Monocytes # (Manual) Basophils # (Manual) Percent Retic PT INR APTT Heparin Anti-Xa Level POC ABG pH 7.582 H POC ABG pCO2 26.8 L POC ABG pO2 Sodium Potassium Chloride Carbon Dioxide BUN Creatinine Glucose POC Glucose 168 H 282 H Calcium Phosphorus Iron TIBC Lactate Dehydrogenase Total Creatine Kinase NT-Pro-B Natriuret Pep Total Protein Albumin Hlrdv-7-Tnpvokdbp Qhthe-8-Udzuhubrr Beta Globulins PEP Interpretation Cholesterol LDL Cholesterol Direct Vitamin B12 Urine Creatinine Crossmatch 04/02/16 04/02/16 04/02/16 05:00 05:00 06:27 WBC 12.4 H RBC Hgb Hct MCV 81 L MCH 26 L MCHC RDW Plt Count Lymph % (Auto) 6.4 L [place] % (Auto) 13.3 H Lymph # 0.8 L [place] # 1.7 H Baso # Seg Neutrophils % 79.4 H Seg Neuts % (Manual) Lymphocytes % (Manual) Monocytes % (Manual) Seg Neutrophils # 9.9 H Seg Neutrophils # Man Lymphocytes # (Manual) Monocytes # (Manual) Basophils # (Manual) Percent Retic PT INR APTT Heparin Anti-Xa Level POC ABG pH POC ABG pCO2 POC ABG pO2 Sodium 146 H Potassium Chloride Carbon Dioxide BUN Creatinine Glucose 334 H POC Glucose 317 H Calcium 8.0 L Phosphorus Iron TIBC Lactate Dehydrogenase Total Creatine Kinase NT-Pro-B Natriuret Pep Total Protein Albumin Duwve-6-Mpvhawmkb Cdhks-5-Tloggqnzq Beta Globulins PEP Interpretation Cholesterol LDL Cholesterol Direct Vitamin B12 Urine Creatinine Crossmatch 04/02/16 04/02/16 04/02/16 11:51 13:10 17:24 WBC RBC Hgb Hct MCV MCH MCHC RDW Plt Count Lymph % (Auto) [place] % (Auto) Lymph # [place] # Baso # Seg Neutrophils % Seg Neuts % (Manual) Lymphocytes % (Manual) Monocytes % (Manual) Seg Neutrophils # Seg Neutrophils # Man Lymphocytes # (Manual) Monocytes # (Manual) Basophils # (Manual) Percent Retic PT INR APTT Heparin Anti-Xa Level POC ABG pH 7.518 H POC ABG pCO2 POC ABG pO2 Sodium Potassium Chloride Carbon Dioxide BUN Creatinine Glucose POC Glucose 278 H 195 H Calcium Phosphorus Iron TIBC Lactate Dehydrogenase Total Creatine Kinase NT-Pro-B Natriuret Pep Total Protein Albumin Coxwc-6-Canwncltl Dppfa-4-Krvajplyo Beta Globulins PEP Interpretation Cholesterol LDL Cholesterol Direct Vitamin B12 Urine Creatinine Crossmatch 04/03/16 04/03/16 04/03/16 00:18 04:10 04:10 WBC 14.3 H RBC Hgb Hct MCV 81 L MCH 26 L MCHC RDW Plt Count Lymph % (Auto) 9.0 L [place] % (Auto) 10.7 H Lymph # [place] # 1.5 H Baso # 0.2 H Seg Neutrophils % 78.5 H Seg Neuts % (Manual) Lymphocytes % (Manual) Monocytes % (Manual) Seg Neutrophils # 11.3 H Seg Neutrophils # Man Lymphocytes # (Manual) Monocytes # (Manual) Basophils # (Manual) Percent Retic PT INR APTT Heparin Anti-Xa Level POC ABG pH POC ABG pCO2 POC ABG pO2 Sodium 148 H Potassium Chloride 108.1 H Carbon Dioxide BUN 21 H Creatinine Glucose 227 H POC Glucose 144 H Calcium 8.2 L Phosphorus Iron TIBC Lactate Dehydrogenase Total Creatine Kinase NT-Pro-B Natriuret Pep Total Protein Albumin Nvbaj-8-[place] Eywqx-8-Uucxmqedh Beta Globulins PEP Interpretation Cholesterol LDL Cholesterol Direct Vitamin B12 Urine Creatinine Crossmatch 04/03/16 04/03/16 04/04/16 11:14 17:10 04:00 WBC 14.5 H RBC Hgb Hct MCV 81 L MCH 26 L MCHC RDW Plt Count Lymph % (Auto) 7.2 L [place] % (Auto) 7.6 H Lymph # 1.0 L [place] # 1.1 H Baso # Seg Neutrophils % 84.5 H Seg Neuts % (Manual) Lymphocytes % (Manual) Monocytes % (Manual) Seg Neutrophils # 12.3 H Seg Neutrophils # Man Lymphocytes # (Manual) Monocytes # (Manual) Basophils # (Manual) Percent Retic PT INR APTT Heparin Anti-Xa Level POC ABG pH POC ABG pCO2 POC ABG pO2 Sodium Potassium Chloride Carbon Dioxide BUN Creatinine Glucose POC Glucose 267 H 212 H Calcium Phosphorus Iron TIBC Lactate Dehydrogenase Total Creatine Kinase NT-Pro-B Natriuret Pep Total Protein Albumin Igmpb-6-Itbsmdqxz Pqbgx-0-Cgmloonsw Beta Globulins PEP Interpretation Cholesterol LDL Cholesterol Direct Vitamin B12 Urine Creatinine Crossmatch 04/04/16 04/04/16 04/04/16 05:00 09:55 09:55 WBC RBC Hgb 11.5 L Hct MCV MCH MCHC RDW Plt Count Lymph % (Auto) [place] % (Auto) Lymph # [place] # Baso # Seg Neutrophils % Seg Neuts % (Manual) Lymphocytes % (Manual) Monocytes % (Manual) Seg Neutrophils # Seg Neutrophils # Man Lymphocytes # (Manual) Monocytes # (Manual) Basophils # (Manual) Percent Retic PT INR APTT 42.1 H Heparin Anti-Xa Level POC ABG pH POC ABG pCO2 POC ABG pO2 Sodium 146 H Potassium Chloride Carbon Dioxide BUN 22 H Creatinine Glucose 128 H POC Glucose Calcium Phosphorus Iron TIBC Lactate Dehydrogenase Total Creatine Kinase NT-Pro-B Natriuret Pep Total Protein Albumin Cexbf-9-Ikxmuqehx Qtcfu-6-Aqstbnoak Beta Globulins PEP Interpretation Cholesterol LDL Cholesterol Direct Vitamin B12 Urine Creatinine Crossmatch 04/04/16 04/04/16 04/04/16 11:45 17:49 17:55 WBC RBC Hgb Hct MCV MCH MCHC RDW Plt Count Lymph % (Auto) [place] % (Auto) Lymph # [place] # Baso # Seg Neutrophils % Seg Neuts % (Manual) Lymphocytes % (Manual) Monocytes % (Manual) Seg Neutrophils # Seg Neutrophils # Man Lymphocytes # (Manual) Monocytes # (Manual) Basophils # (Manual) Percent Retic PT INR APTT Heparin Anti-Xa Level 1.19 H POC ABG pH POC ABG pCO2 POC ABG pO2 Sodium Potassium Chloride Carbon Dioxide BUN Creatinine Glucose POC Glucose 231 H 186 H Calcium Phosphorus Iron TIBC Lactate Dehydrogenase Total Creatine Kinase NT-Pro-B Natriuret Pep Total Protein Albumin Rzbud-4-Klpztpwrz Qrorx-9-Esdntqjcs Beta Globulins PEP Interpretation Cholesterol LDL Cholesterol Direct Vitamin B12 Urine Creatinine Crossmatch 04/05/16 04/05/16 04/05/16 00:35 05:32 05:42 WBC RBC Hgb Hct MCV MCH MCHC RDW Plt Count Lymph % (Auto) [place] % (Auto) Lymph # [place] # Baso # Seg Neutrophils % Seg Neuts % (Manual) Lymphocytes % (Manual) Monocytes % (Manual) Seg Neutrophils # Seg Neutrophils # Man Lymphocytes # (Manual) Monocytes # (Manual) Basophils # (Manual) Percent Retic PT INR APTT Heparin Anti-Xa Level POC ABG pH 7.491 H POC ABG pCO2 POC ABG pO2 Sodium Potassium Chloride Carbon Dioxide BUN Creatinine Glucose POC Glucose 192 H 242 H Calcium Phosphorus Iron TIBC Lactate Dehydrogenase Total Creatine Kinase NT-Pro-B Natriuret Pep Total Protein Albumin Gdsgo-1-Kzhjgoirw Ieeqw-6-Tjwaxklue Beta Globulins PEP Interpretation Cholesterol LDL Cholesterol Direct Vitamin B12 Urine Creatinine Crossmatch 04/05/16 04/05/16 04/05/16 06:20 06:20 12:19 WBC 13.9 H RBC Hgb 11.6 L Hct MCV 81 L MCH 26 L MCHC RDW Plt Count Lymph % (Auto) 9.6 L [place] % (Auto) 8.7 H Lymph # [place] # 1.2 H Baso # Seg Neutrophils % 80.9 H Seg Neuts % (Manual) Lymphocytes % (Manual) Monocytes % (Manual) Seg Neutrophils # 11.3 H Seg Neutrophils # Man Lymphocytes # (Manual) Monocytes # (Manual) Basophils # (Manual) Percent Retic PT INR APTT Heparin Anti-Xa Level POC ABG pH POC ABG pCO2 POC ABG pO2 Sodium 148 H Potassium Chloride Carbon Dioxide BUN 23 H Creatinine Glucose 242 H POC Glucose 187 H Calcium Phosphorus Iron TIBC Lactate Dehydrogenase Total Creatine Kinase NT-Pro-B Natriuret Pep Total Protein Albumin Xvhkv-3-Jevhdodyw Ivqwp-2-Ppnyhtzqm Beta Globulins PEP Interpretation Cholesterol LDL Cholesterol Direct Vitamin B12 Urine Creatinine Crossmatch 04/05/16 04/05/16 04/06/16 17:10 23:45 05:23 WBC 13.0 H RBC Hgb Hct MCV 82 L MCH 26 L MCHC 31 L RDW Plt Count Lymph % (Auto) 6.7 L [place] % (Auto) 8.3 H Lymph # 0.9 L [place] # 1.1 H Baso # Seg Neutrophils % 84.6 H Seg Neuts % (Manual) Lymphocytes % (Manual) Monocytes % (Manual) Seg Neutrophils # 11.0 H Seg Neutrophils # Man Lymphocytes # (Manual) Monocytes # (Manual) Basophils # (Manual) Percent Retic PT INR APTT Heparin Anti-Xa Level POC ABG pH POC ABG pCO2 POC ABG pO2 Sodium Potassium Chloride Carbon Dioxide BUN Creatinine Glucose POC Glucose 169 H 202 H Calcium Phosphorus Iron TIBC Lactate Dehydrogenase Total Creatine Kinase NT-Pro-B Natriuret Pep Total Protein Albumin Tovht-0-Canqmyizm Tfhxv-1-Gjlzxgezh Beta Globulins PEP Interpretation Cholesterol LDL Cholesterol Direct Vitamin B12 Urine Creatinine Crossmatch 04/06/16 04/06/16 04/06/16 05:23 05:23 06:11 WBC RBC Hgb Hct MCV MCH MCHC RDW Plt Count Lymph % (Auto) [place] % (Auto) Lymph # [place] # Baso # Seg Neutrophils % Seg Neuts % (Manual) Lymphocytes % (Manual) Monocytes % (Manual) Seg Neutrophils # Seg Neutrophils # Man Lymphocytes # (Manual) Monocytes # (Manual) Basophils # (Manual) Percent Retic PT INR APTT Heparin Anti-Xa Level 0.21 L POC ABG pH POC ABG pCO2 POC ABG pO2 Sodium 153 H Potassium Chloride 111.3 H Carbon Dioxide BUN 22 H Creatinine Glucose 62 L POC Glucose 56 L Calcium Phosphorus Iron TIBC Lactate Dehydrogenase Total Creatine Kinase NT-Pro-B Natriuret Pep Total Protein Albumin Qnvwg-4-Mygvonfbs Ztege-9-Cmahbwvzu Beta Globulins PEP Interpretation Cholesterol LDL Cholesterol Direct Vitamin B12 Urine Creatinine Crossmatch 04/06/16 04/06/16 04/06/16 06:52 11:36 14:58 WBC RBC Hgb Hct MCV MCH MCHC RDW Plt Count Lymph % (Auto) [place] % (Auto) Lymph # [place] # Baso # Seg Neutrophils % Seg Neuts % (Manual) Lymphocytes % (Manual) Monocytes % (Manual) Seg Neutrophils # Seg Neutrophils # Man Lymphocytes # (Manual) Monocytes # (Manual) Basophils # (Manual) Percent Retic PT INR APTT Heparin Anti-Xa Level POC ABG pH POC ABG pCO2 POC ABG pO2 Sodium Potassium Chloride Carbon Dioxide BUN Creatinine Glucose POC Glucose 206 H 139 H 147 H Calcium Phosphorus Iron TIBC Lactate Dehydrogenase Total Creatine Kinase NT-Pro-B Natriuret Pep Total Protein Albumin Ufogy-3-Ogeaeeicx Kkdky-5-Pygppywrr Beta Globulins PEP Interpretation Cholesterol LDL Cholesterol Direct Vitamin B12 Urine Creatinine Crossmatch 04/06/16 04/06/16 04/06/16 16:03 21:18 23:53 WBC RBC Hgb Hct MCV MCH MCHC RDW Plt Count Lymph % (Auto) [place] % (Auto) Lymph # [place] # Baso # Seg Neutrophils % Seg Neuts % (Manual) Lymphocytes % (Manual) Monocytes % (Manual) Seg Neutrophils # Seg Neutrophils # Man Lymphocytes # (Manual) Monocytes # (Manual) Basophils # (Manual) Percent Retic PT INR APTT Heparin Anti-Xa Level POC ABG pH POC ABG pCO2 POC ABG pO2 Sodium Potassium Chloride Carbon Dioxide BUN Creatinine Glucose POC Glucose 154 H 293 H 301 H Calcium Phosphorus Iron TIBC Lactate Dehydrogenase Total Creatine Kinase NT-Pro-B Natriuret Pep Total Protein Albumin Ethoc-9-Fowysfwvk Jdtda-8-Nrzgeibyk Beta Globulins PEP Interpretation Cholesterol LDL Cholesterol Direct Vitamin B12 Urine Creatinine Crossmatch 04/07/16 04/07/16 04/07/16 02:30 05:11 05:11 WBC 12.5 H RBC Hgb 11.5 L Hct MCV 82 L MCH 26 L MCHC 31 L RDW Plt Count Lymph % (Auto) [place] % (Auto) Lymph # [place] # Baso # Seg Neutrophils % Seg Neuts % (Manual) Lymphocytes % (Manual) Monocytes % (Manual) Seg Neutrophils # Seg Neutrophils # Man Lymphocytes # (Manual) Monocytes # (Manual) Basophils # (Manual) Percent Retic PT INR APTT Heparin Anti-Xa Level 0.11 L POC ABG pH POC ABG pCO2 POC ABG pO2 Sodium 150 H Potassium Chloride 109.5 H Carbon Dioxide BUN 28 H Creatinine Glucose 264 H POC Glucose Calcium Phosphorus Iron TIBC Lactate Dehydrogenase Total Creatine Kinase NT-Pro-B Natriuret Pep Total Protein Albumin Lwgid-1-Fgnvnrgru Wiehj-1-Cxjbaguqe Beta Globulins PEP Interpretation Cholesterol LDL Cholesterol Direct Vitamin B12 Urine Creatinine Crossmatch 04/07/16 04/07/16 04/07/16 06:46 10:18 11:50 WBC RBC Hgb Hct MCV MCH MCHC RDW Plt Count Lymph % (Auto) [place] % (Auto) Lymph # [place] # Baso # Seg Neutrophils % Seg Neuts % (Manual) Lymphocytes % (Manual) Monocytes % (Manual) Seg Neutrophils # Seg Neutrophils # Man Lymphocytes # (Manual) Monocytes # (Manual) Basophils # (Manual) Percent Retic PT 15.1 H INR 1.20 H APTT Heparin Anti-Xa Level POC ABG pH POC ABG pCO2 POC ABG pO2 Sodium Potassium Chloride Carbon Dioxide BUN Creatinine Glucose POC Glucose 259 H 288 H Calcium Phosphorus Iron TIBC Lactate Dehydrogenase Total Creatine Kinase NT-Pro-B Natriuret Pep Total Protein Albumin Gjigf-3-Deayciolw Aelzf-4-Ozovawlvv Beta Globulins PEP Interpretation Cholesterol LDL Cholesterol Direct Vitamin B12 Urine Creatinine Crossmatch 04/07/16 04/08/16 04/08/16 17:58 01:25 06:49 WBC RBC Hgb Hct MCV MCH MCHC RDW Plt Count Lymph % (Auto) [place] % (Auto) Lymph # [place] # Baso # Seg Neutrophils % Seg Neuts % (Manual) Lymphocytes % (Manual) Monocytes % (Manual) Seg Neutrophils # Seg Neutrophils # Man Lymphocytes # (Manual) Monocytes # (Manual) Basophils # (Manual) Percent Retic PT INR APTT Heparin Anti-Xa Level POC ABG pH POC ABG pCO2 POC ABG pO2 Sodium 156 H Potassium Chloride 114.7 H Carbon Dioxide BUN 33 H Creatinine Glucose 169 H POC Glucose 330 H 146 H Calcium Phosphorus Iron TIBC Lactate Dehydrogenase Total Creatine Kinase NT-Pro-B Natriuret Pep Total Protein Albumin Iwfqm-3-Atufkwzkn Jehow-3-Mfheasvvy Beta Globulins PEP Interpretation Cholesterol LDL Cholesterol Direct Vitamin B12 Urine Creatinine Crossmatch 04/08/16 04/08/16 04/08/16 07:34 10:28 10:28 WBC RBC Hgb Hct MCV MCH MCHC RDW Plt Count Lymph % (Auto) [place] % (Auto) Lymph # [place] # Baso # Seg Neutrophils % Seg Neuts % (Manual) Lymphocytes % (Manual) Monocytes % (Manual) Seg Neutrophils # Seg Neutrophils # Man Lymphocytes # (Manual) Monocytes # (Manual) Basophils # (Manual) Percent Retic PT 15.5 H INR 1.24 H APTT Heparin Anti-Xa Level 0.24 L POC ABG pH POC ABG pCO2 POC ABG pO2 Sodium Potassium Chloride Carbon Dioxide BUN Creatinine Glucose POC Glucose 232 H Calcium Phosphorus Iron TIBC Lactate Dehydrogenase Total Creatine Kinase NT-Pro-B Natriuret Pep Total Protein Albumin Itoho-2-Ojznttlzb Fudpz-1-Elsahucnu Beta Globulins PEP Interpretation Cholesterol LDL Cholesterol Direct Vitamin B12 Urine Creatinine Crossmatch 04/08/16 04/08/16 04/09/16 11:36 15:38 00:01 WBC RBC Hgb Hct MCV MCH MCHC RDW Plt Count Lymph % (Auto) [place] % (Auto) Lymph # [place] # Baso # Seg Neutrophils % Seg Neuts % (Manual) Lymphocytes % (Manual) Monocytes % (Manual) Seg Neutrophils # Seg Neutrophils # Man Lymphocytes # (Manual) Monocytes # (Manual) Basophils # (Manual) Percent Retic PT INR APTT Heparin Anti-Xa Level POC ABG pH POC ABG pCO2 POC ABG pO2 Sodium Potassium Chloride Carbon Dioxide BUN Creatinine Glucose POC Glucose 193 H 163 H 180 H Calcium Phosphorus Iron TIBC Lactate Dehydrogenase Total Creatine Kinase NT-Pro-B Natriuret Pep Total Protein Albumin Xfunm-2-Tpaymnnls Qsorz-2-Zursfsqsy Beta Globulins PEP Interpretation Cholesterol LDL Cholesterol Direct Vitamin B12 Urine Creatinine Crossmatch 04/09/16 04/09/16 04/09/16 06:17 06:42 06:42 WBC RBC Hgb Hct MCV MCH MCHC RDW Plt Count Lymph % (Auto) [place] % (Auto) Lymph # [place] # Baso # Seg Neutrophils % Seg Neuts % (Manual) Lymphocytes % (Manual) Monocytes % (Manual) Seg Neutrophils # Seg Neutrophils # Man Lymphocytes # (Manual) Monocytes # (Manual) Basophils # (Manual) Percent Retic PT 17.4 H INR 1.43 H APTT Heparin Anti-Xa Level POC ABG pH POC ABG pCO2 POC ABG pO2 Sodium 153 H Potassium Chloride 113.2 H Carbon Dioxide BUN 29 H Creatinine Glucose 301 H POC Glucose 249 H Calcium 8.3 L Phosphorus Iron TIBC Lactate Dehydrogenase Total Creatine Kinase NT-Pro-B Natriuret Pep Total Protein Albumin Chmdi-7-Gvfrmqqnz Sfykp-1-Erydrgijh Beta Globulins PEP Interpretation Cholesterol LDL Cholesterol Direct Vitamin B12 Urine Creatinine Crossmatch 04/09/16 04/09/16 04/09/16 07:37 11:26 15:45 WBC RBC Hgb Hct MCV MCH MCHC RDW Plt Count Lymph % (Auto) [place] % (Auto) Lymph # [place] # Baso # Seg Neutrophils % Seg Neuts % (Manual) Lymphocytes % (Manual) Monocytes % (Manual) Seg Neutrophils # Seg Neutrophils # Man Lymphocytes # (Manual) Monocytes # (Manual) Basophils # (Manual) Percent Retic PT INR APTT Heparin Anti-Xa Level POC ABG pH POC ABG pCO2 POC ABG pO2 Sodium Potassium Chloride Carbon Dioxide BUN Creatinine Glucose POC Glucose 283 H 306 H 354 H Calcium Phosphorus Iron TIBC Lactate Dehydrogenase Total Creatine Kinase NT-Pro-B Natriuret Pep Total Protein Albumin Icwqd-2-Oqmusyfat Dxmco-4-Aypmtugny Beta Globulins PEP Interpretation Cholesterol LDL Cholesterol Direct Vitamin B12 Urine Creatinine Crossmatch 04/10/16 04/10/16 04/10/16 00:53 07:15 07:34 WBC RBC Hgb 11.3 L Hct MCV MCH MCHC RDW Plt Count Lymph % (Auto) [place] % (Auto) Lymph # [place] # Baso # Seg Neutrophils % Seg Neuts % (Manual) Lymphocytes % (Manual) Monocytes % (Manual) Seg Neutrophils # Seg Neutrophils # Man Lymphocytes # (Manual) Monocytes # (Manual) Basophils # (Manual) Percent Retic PT INR APTT Heparin Anti-Xa Level POC ABG pH POC ABG pCO2 POC ABG pO2 Sodium Potassium Chloride Carbon Dioxide BUN Creatinine Glucose POC Glucose 323 H 311 H Calcium Phosphorus Iron TIBC Lactate Dehydrogenase Total Creatine Kinase NT-Pro-B Natriuret Pep Total Protein Albumin Ttavq-7-Poyzlgqtx Fsqpy-4-Shlxnpdlo Beta Globulins PEP Interpretation Cholesterol LDL Cholesterol Direct Vitamin B12 Urine Creatinine Crossmatch 04/10/16 04/10/16 04/10/16 07:34 07:34 11:25 WBC RBC Hgb Hct MCV MCH MCHC RDW Plt Count Lymph % (Auto) [place] % (Auto) Lymph # [place] # Baso # Seg Neutrophils % Seg Neuts % (Manual) Lymphocytes % (Manual) Monocytes % (Manual) Seg Neutrophils # Seg Neutrophils # Man Lymphocytes # (Manual) Monocytes # (Manual) Basophils # (Manual) Percent Retic PT 17.3 H INR 1.42 H APTT Heparin Anti-Xa Level POC ABG pH POC ABG pCO2 POC ABG pO2 Sodium 158 H Potassium Chloride 118.6 H Carbon Dioxide BUN 30 H Creatinine Glucose 330 H POC Glucose 335 H Calcium 8.3 L Phosphorus Iron TIBC Lactate Dehydrogenase Total Creatine Kinase NT-Pro-B Natriuret Pep Total Protein Albumin Hzxwj-9-Qzvssclmv Plrib-8-Igzogcerw Beta Globulins PEP Interpretation Cholesterol LDL Cholesterol Direct Vitamin B12 Urine Creatinine Crossmatch 04/10/16 04/11/16 04/11/16 16:21 00:29 07:47 WBC RBC Hgb Hct MCV MCH MCHC RDW Plt Count Lymph % (Auto) [place] % (Auto) Lymph # [place] # Baso # Seg Neutrophils % Seg Neuts % (Manual) Lymphocytes % (Manual) Monocytes % (Manual) Seg Neutrophils # Seg Neutrophils # Man Lymphocytes # (Manual) Monocytes # (Manual) Basophils # (Manual) Percent Retic PT 18.4 H INR 1.53 H APTT Heparin Anti-Xa Level POC ABG pH POC ABG pCO2 POC ABG pO2 Sodium Potassium Chloride Carbon Dioxide BUN Creatinine Glucose POC Glucose 230 H 162 H Calcium Phosphorus Iron TIBC Lactate Dehydrogenase Total Creatine Kinase NT-Pro-B Natriuret Pep Total Protein Albumin Mjele-0-Hlffrgxsf Afvqt-8-Cuxpphkkj Beta Globulins PEP Interpretation Cholesterol LDL Cholesterol Direct Vitamin B12 Urine Creatinine Crossmatch 04/11/16 04/11/16 04/12/16 07:47 11:22 04:54 WBC RBC Hgb 11.0 L Hct 35.0 L MCV MCH MCHC RDW Plt Count Lymph % (Auto) [place] % (Auto) Lymph # [place] # Baso # Seg Neutrophils % Seg Neuts % (Manual) Lymphocytes % (Manual) Monocytes % (Manual) Seg Neutrophils # Seg Neutrophils # Man Lymphocytes # (Manual) Monocytes # (Manual) Basophils # (Manual) Percent Retic PT INR APTT Heparin Anti-Xa Level POC ABG pH POC ABG pCO2 POC ABG pO2 Sodium 155 H Potassium Chloride 114.5 H Carbon Dioxide BUN 23 H Creatinine Glucose 157 H POC Glucose 229 H Calcium Phosphorus Iron TIBC Lactate Dehydrogenase Total Creatine Kinase NT-Pro-B Natriuret Pep Total Protein Albumin Xjhaw-0-Danagtdmh Dhmot-0-Qtdnfhwhx Beta Globulins PEP Interpretation Cholesterol LDL Cholesterol Direct Vitamin B12 Urine Creatinine Crossmatch 04/12/16 04/12/16 04/12/16 04:54 04:54 05:57 WBC RBC Hgb Hct MCV MCH MCHC RDW Plt Count Lymph % (Auto) [place] % (Auto) Lymph # [place] # Baso # Seg Neutrophils % Seg Neuts % (Manual) Lymphocytes % (Manual) Monocytes % (Manual) Seg Neutrophils # Seg Neutrophils # Man Lymphocytes # (Manual) Monocytes # (Manual) Basophils # (Manual) Percent Retic PT 22.5 H INR 1.98 H APTT Heparin Anti-Xa Level 0.19 L POC ABG pH POC ABG pCO2 POC ABG pO2 Sodium 156 H Potassium Chloride 115.4 H Carbon Dioxide BUN 23 H Creatinine Glucose 143 H POC Glucose 194 H Calcium Phosphorus Iron TIBC Lactate Dehydrogenase Total Creatine Kinase NT-Pro-B Natriuret Pep Total Protein Albumin Akvve-5-Booubxfsl Iqpap-4-Hcxulwkmu Beta Globulins PEP Interpretation Cholesterol LDL Cholesterol Direct Vitamin B12 Urine Creatinine Crossmatch 04/12/16 04/12/16 04/12/16 12:34 19:01 23:30 WBC RBC Hgb Hct MCV MCH MCHC RDW Plt Count Lymph % (Auto) [place] % (Auto) Lymph # [place] # Baso # Seg Neutrophils % Seg Neuts % (Manual) Lymphocytes % (Manual) Monocytes % (Manual) Seg Neutrophils # Seg Neutrophils # Man Lymphocytes # (Manual) Monocytes # (Manual) Basophils # (Manual) Percent Retic PT INR APTT Heparin Anti-Xa Level POC ABG pH POC ABG pCO2 POC ABG pO2 Sodium Potassium Chloride Carbon Dioxide BUN Creatinine Glucose POC Glucose 291 H 235 H 154 H Calcium Phosphorus Iron TIBC Lactate Dehydrogenase Total Creatine Kinase NT-Pro-B Natriuret Pep Total Protein Albumin Geyoh-0-Fmenimike Jdmik-8-Amclennzg Beta Globulins PEP Interpretation Cholesterol LDL Cholesterol Direct Vitamin B12 Urine Creatinine Crossmatch 04/13/16 04/13/16 04/13/16 05:16 05:16 05:28 WBC RBC Hgb Hct MCV MCH MCHC RDW Plt Count Lymph % (Auto) [place] % (Auto) Lymph # [place] # Baso # Seg Neutrophils % Seg Neuts % (Manual) Lymphocytes % (Manual) Monocytes % (Manual) Seg Neutrophils # Seg Neutrophils # Man Lymphocytes # (Manual) Monocytes # (Manual) Basophils # (Manual) Percent Retic PT 27.0 H INR 2.49 H APTT Heparin Anti-Xa Level 0.20 L POC ABG pH POC ABG pCO2 POC ABG pO2 Sodium 150 H Potassium Chloride 110.5 H Carbon Dioxide BUN 21 H Creatinine Glucose 159 H POC Glucose 177 H Calcium Phosphorus Iron TIBC Lactate Dehydrogenase Total Creatine Kinase NT-Pro-B Natriuret Pep Total Protein Albumin Tqduz-4-Kickpokkm Fcivo-8-Hjwnqvuio Beta Globulins PEP Interpretation Cholesterol LDL Cholesterol Direct Vitamin B12 Urine Creatinine Crossmatch 04/13/16 04/13/16 04/14/16 11:30 17:54 00:44 WBC RBC Hgb Hct MCV MCH MCHC RDW Plt Count Lymph % (Auto) [place] % (Auto) Lymph # [place] # Baso # Seg Neutrophils % Seg Neuts % (Manual) Lymphocytes % (Manual) Monocytes % (Manual) Seg Neutrophils # Seg Neutrophils # Man Lymphocytes # (Manual) Monocytes # (Manual) Basophils # (Manual) Percent Retic PT INR APTT Heparin Anti-Xa Level POC ABG pH POC ABG pCO2 POC ABG pO2 Sodium Potassium Chloride Carbon Dioxide BUN Creatinine Glucose POC Glucose 181 H 251 H 237 H Calcium Phosphorus Iron TIBC Lactate Dehydrogenase Total Creatine Kinase NT-Pro-B Natriuret Pep Total Protein Albumin Kbdcf-5-Xjmhzngyd Ftbke-2-Siaaigndc Beta Globulins PEP Interpretation Cholesterol LDL Cholesterol Direct Vitamin B12 Urine Creatinine Crossmatch 04/14/16 04/14/16 04/14/16 05:00 05:42 05:42 WBC RBC Hgb Hct MCV MCH MCHC RDW Plt Count Lymph % (Auto) [place] % (Auto) Lymph # [place] # Baso # Seg Neutrophils % Seg Neuts % (Manual) Lymphocytes % (Manual) Monocytes % (Manual) Seg Neutrophils # Seg Neutrophils # Man Lymphocytes # (Manual) Monocytes # (Manual) Basophils # (Manual) Percent Retic PT 30.3 H INR 2.88 H APTT Heparin Anti-Xa Level 0.27 L POC ABG pH POC ABG pCO2 POC ABG pO2 Sodium Potassium 3.5 L Chloride Carbon Dioxide BUN Creatinine Glucose 160 H POC Glucose Calcium 8.2 L Phosphorus Iron TIBC Lactate Dehydrogenase Total Creatine Kinase NT-Pro-B Natriuret Pep Total Protein Albumin Dqdqr-5-Elphnvoni Onwpk-9-Tzvnewviq Beta Globulins PEP Interpretation Cholesterol LDL Cholesterol Direct Vitamin B12 Urine Creatinine Crossmatch 04/14/16 04/14/16 04/14/16 06:02 06:16 09:18 WBC 12.3 H RBC Hgb 11.4 L Hct MCV 82 L MCH 26 L MCHC RDW Plt Count Lymph % (Auto) [place] % (Auto) Lymph # [place] # Baso # Seg Neutrophils % Seg Neuts % (Manual) Lymphocytes % (Manual) Monocytes % (Manual) Seg Neutrophils # Seg Neutrophils # Man Lymphocytes # (Manual) Monocytes # (Manual) Basophils # (Manual) Percent Retic PT INR APTT Heparin Anti-Xa Level POC ABG pH POC ABG pCO2 POC ABG pO2 Sodium Potassium Chloride Carbon Dioxide BUN Creatinine Glucose POC Glucose 156 H 164 H Calcium Phosphorus Iron TIBC Lactate Dehydrogenase Total Creatine Kinase NT-Pro-B Natriuret Pep Total Protein Albumin Jspdv-0-Lwmsfumqs Pvvjx-0-Pfnodzapw Beta Globulins PEP Interpretation Cholesterol LDL Cholesterol Direct Vitamin B12 Urine Creatinine Crossmatch 04/14/16 04/15/16 04/15/16 13:58 01:07 06:04 WBC RBC Hgb Hct MCV MCH MCHC RDW Plt Count Lymph % (Auto) [place] % (Auto) Lymph # [place] # Baso # Seg Neutrophils % Seg Neuts % (Manual) Lymphocytes % (Manual) Monocytes % (Manual) Seg Neutrophils # Seg Neutrophils # Man Lymphocytes # (Manual) Monocytes # (Manual) Basophils # (Manual) Percent Retic PT 24.9 H INR 2.25 H APTT Heparin Anti-Xa Level POC ABG pH POC ABG pCO2 POC ABG pO2 Sodium Potassium Chloride Carbon Dioxide BUN Creatinine Glucose POC Glucose 109 H 154 H Calcium Phosphorus Iron TIBC Lactate Dehydrogenase Total Creatine Kinase NT-Pro-B Natriuret Pep Total Protein Albumin [place]-2-Fcadsdirm Ovbzc-[id number] Beta Globulins PEP Interpretation Cholesterol LDL Cholesterol Direct Vitamin B12 Urine Creatinine Crossmatch 04/15/16 04/15/16 04/16/16 06:08 12:41 00:38 WBC RBC Hgb Hct MCV MCH MCHC RDW Plt Count Lymph % (Auto) [place] % (Auto) Lymph # [place] # Baso # Seg Neutrophils % Seg Neuts % (Manual) Lymphocytes % (Manual) Monocytes % (Manual) Seg Neutrophils # Seg Neutrophils # Man Lymphocytes # (Manual) Monocytes # (Manual) Basophils # (Manual) Percent Retic PT INR APTT Heparin Anti-Xa Level POC ABG pH POC ABG pCO2 POC ABG pO2 Sodium Potassium Chloride Carbon Dioxide BUN Creatinine Glucose POC Glucose 165 H 223 H 216 H Calcium Phosphorus Iron TIBC Lactate Dehydrogenase Total Creatine Kinase NT-Pro-B Natriuret Pep Total Protein Albumin Queii-1-Lawlxtclv Qzyne-1-Dhjmwkuno Beta Globulins PEP Interpretation Cholesterol LDL Cholesterol Direct Vitamin B12 Urine Creatinine Crossmatch 04/16/16 04/16/16 04/16/16 05:45 07:09 14:00 WBC RBC Hgb Hct MCV MCH MCHC RDW Plt Count Lymph % (Auto) [place] % (Auto) Lymph # [place] # Baso # Seg Neutrophils % Seg Neuts % (Manual) Lymphocytes % (Manual) Monocytes % (Manual) Seg Neutrophils # Seg Neutrophils # Man Lymphocytes # (Manual) Monocytes # (Manual) Basophils # (Manual) Percent Retic PT 19.4 H INR 1.64 H APTT Heparin Anti-Xa Level 0.10 L POC ABG pH POC ABG pCO2 POC ABG pO2 Sodium Potassium Chloride Carbon Dioxide BUN Creatinine Glucose POC Glucose 207 H 69 L Calcium Phosphorus Iron TIBC Lactate Dehydrogenase Total Creatine Kinase NT-Pro-B Natriuret Pep Total Protein Albumin Ubzoi-3-Vqxppxwbn Jiris-1-Kbpbypwrr Beta Globulins PEP Interpretation Cholesterol LDL Cholesterol Direct Vitamin B12 Urine Creatinine Crossmatch 04/16/16 04/16/16 04/16/16 17:40 17:52 19:38 WBC RBC Hgb Hct MCV MCH MCHC RDW Plt Count Lymph % (Auto) [place] % (Auto) Lymph # [place] # Baso # Seg Neutrophils % Seg Neuts % (Manual) Lymphocytes % (Manual) Monocytes % (Manual) Seg Neutrophils # Seg Neutrophils # Man Lymphocytes # (Manual) Monocytes # (Manual) Basophils # (Manual) Percent Retic PT INR APTT Heparin Anti-Xa Level 0.26 L POC ABG pH 7.543 H 7.488 H POC ABG pCO2 26.3 L 30.3 L POC ABG pO2 55 L 203 H Sodium Potassium Chloride Carbon Dioxide BUN Creatinine Glucose POC Glucose Calcium Phosphorus Iron TIBC Lactate Dehydrogenase Total Creatine Kinase NT-Pro-B Natriuret Pep Total Protein Albumin Rbarz-0-Wiugoxaix Ddgnc-7-Buxcohsus Beta Globulins PEP Interpretation Cholesterol LDL Cholesterol Direct Vitamin B12 Urine Creatinine Crossmatch 04/17/16 04/17/1604/17/16 00:04 05:10 05:36 WBC RBC Hgb Hct MCV MCH MCHC RDW Plt Count Lymph % (Auto) [place] % (Auto) Lymph # [place] # Baso # Seg Neutrophils % Seg Neuts % (Manual) Lymphocytes % (Manual) Monocytes % (Manual) Seg Neutrophils # Seg Neutrophils # Man Lymphocytes # (Manual) Monocytes # (Manual) Basophils # (Manual) Percent Retic PT INR APTT Heparin Anti-Xa Level POC ABG pH POC ABG pCO2 32.7 L POC ABG pO2 68 L Sodium Potassium Chloride Carbon Dioxide BUN Creatinine Glucose POC Glucose 113 H 161 H Calcium Phosphorus Iron TIBC Lactate Dehydrogenase Total Creatine Kinase NT-Pro-B Natriuret Pep Total Protein Albumin Uhomu-7-Pxetcvgjn Tnptw-5-Yaewdehlo Beta Globulins PEP Interpretation Cholesterol LDL Cholesterol Direct Vitamin B12 Urine Creatinine Crossmatch 04/17/16 04/17/16 04/17/16 05:41 08:37 11:46 WBC RBC Hgb Hct MCV MCH MCHC RDW Plt Count Lymph % (Auto) [place] % (Auto) Lymph # [place] # Baso # Seg Neutrophils % Seg Neuts % (Manual) Lymphocytes % (Manual) Monocytes % (Manual) Seg Neutrophils # Seg Neutrophils # Man Lymphocytes # (Manual) Monocytes # (Manual) Basophils # (Manual) Percent Retic PT 17.4 H INR 1.43 H APTT Heparin Anti-Xa Level POC ABG pH POC ABG pCO2 POC ABG pO2 Sodium Potassium Chloride Carbon Dioxide BUN Creatinine Glucose POC Glucose 154 H 138 H Calcium Phosphorus Iron TIBC Lactate Dehydrogenase Total Creatine Kinase NT-Pro-B Natriuret Pep Total Protein Albumin Erlwj-3-Fzypeodrf Pmzhy-6-Yxphqjdla Beta Globulins PEP Interpretation Cholesterol LDL Cholesterol Direct Vitamin B12 Urine Creatinine Crossmatch 04/17/16 04/17/16 04/17/16 12:17 12:17 21:20 WBC 16.5 H RBC 3.31 L Hgb 8.8 L Hct 26.9 L MCV 81 L MCH 27 L MCHC RDW 15.5 H Plt Count Lymph % (Auto) [place] % (Auto) Lymph # [place] # Baso # Seg Neutrophils % Seg Neuts % (Manual) Lymphocytes % (Manual) 3.0 L Monocytes % (Manual) Seg Neutrophils # Seg Neutrophils # Man 10.1 H Lymphocytes # (Manual) 0.5 L Monocytes # (Manual) Basophils # (Manual) Percent Retic PT INR APTT Heparin Anti-Xa Level 0.14 L POC ABG pH POC ABG pCO2 POC ABG pO2 Sodium Potassium Chloride Carbon Dioxide 21 L BUN 38 H Creatinine 1.8 H D Glucose 131 H POC Glucose Calcium 7.6 L Phosphorus Iron TIBC Lactate Dehydrogenase Total Creatine Kinase NT-Pro-B Natriuret Pep Total Protein Albumin Timmi-8-Kdmxrgezh Lcadd-9-Kivvgjrau Beta Globulins PEP Interpretation Cholesterol LDL Cholesterol Direct Vitamin B12 Urine Creatinine Crossmatch 04/17/16 04/17/16 04/18/16 23:38 23:41 00:21 WBC RBC Hgb Hct MCV MCH MCHC RDW Plt Count Lymph % (Auto) [place] % (Auto) Lymph # [place] # Baso # Seg Neutrophils % Seg Neuts % (Manual) Lymphocytes % (Manual) Monocytes % (Manual) Seg Neutrophils # Seg Neutrophils # Man Lymphocytes # (Manual) Monocytes # (Manual) Basophils # (Manual) Percent Retic PT INR APTT Heparin Anti-Xa Level POC ABG pH POC ABG pCO2 POC ABG pO2 Sodium Potassium Chloride Carbon Dioxide BUN Creatinine Glucose POC Glucose < 40 L < 40 L 223 H Calcium Phosphorus Iron TIBC Lactate Dehydrogenase Total Creatine Kinase NT-Pro-B Natriuret Pep Total Protein Albumin Sasxu-5-Ghstqwcgq Mvpef-0-Yzilmiayc Beta Globulins PEP Interpretation Cholesterol LDL Cholesterol Direct Vitamin B12 Urine Creatinine Crossmatch 04/18/16 04/18/16 04/18/16 05:01 05:20 05:20 WBC 17.6 H RBC 3.44 L Hgb 9.1 L Hct 27.8 L MCV 81 L MCH 26 L MCHC RDW 15.5 H Plt Count Lymph % (Auto) 2.7 L [place] % (Auto) 8.3 H Lymph # 0.5 L [place] # 1.5 H Baso # Seg Neutrophils % 88.4 H Seg Neuts % (Manual) Lymphocytes % (Manual) Monocytes % (Manual) Seg Neutrophils # 15.6 H Seg Neutrophils # Man Lymphocytes # (Manual) Monocytes # (Manual) Basophils # (Manual) Percent Retic PT 17.4 H INR 1.43 H APTT Heparin Anti-Xa Level POC ABG pH 7.528 H POC ABG pCO2 27.9 L POC ABG pO2 Sodium Potassium Chloride Carbon Dioxide BUN Creatinine Glucose POC Glucose Calcium Phosphorus Iron TIBC Lactate Dehydrogenase Total Creatine Kinase NT-Pro-B Natriuret Pep Total Protein Albumin Fgfrr-7-Mgszyhzwv Ucsmm-1-Vbrppreyr Beta Globulins PEP Interpretation Cholesterol LDL Cholesterol Direct Vitamin B12 Urine Creatinine Crossmatch 04/18/16 04/18/16 04/18/16 05:20 05:31 06:50 WBC RBC Hgb Hct MCV MCH MCHC RDW Plt Count Lymph % (Auto) [place] % (Auto) Lymph # [place] # Baso # Seg Neutrophils % Seg Neuts % (Manual) Lymphocytes % (Manual) Monocytes % (Manual) Seg Neutrophils # Seg Neutrophils # Man Lymphocytes # (Manual) Monocytes # (Manual) Basophils # (Manual) Percent Retic PT INR APTT Heparin Anti-Xa Level POC ABG pH POC ABG pCO2 POC ABG pO2 Sodium Potassium 3.4 L Chloride Carbon Dioxide 21 L BUN 22 H Creatinine Glucose POC Glucose 61 L 124 H Calcium 8.0 L Phosphorus Iron TIBC Lactate Dehydrogenase Total Creatine Kinase NT-Pro-B Natriuret Pep Total Protein Albumin Uykkx-3-Twwvzdper Eoezv-8-Jivaplfeu Beta Globulins PEP Interpretation Cholesterol LDL Cholesterol Direct Vitamin B12 Urine Creatinine Crossmatch 04/18/16 04/18/16 04/19/16 17:42 22:40 00:31 WBC RBC Hgb Hct MCV MCH MCHC RDW Plt Count Lymph % (Auto) [place] % (Auto) Lymph # [place] # Baso # Seg Neutrophils % Seg Neuts % (Manual) Lymphocytes % (Manual) Monocytes % (Manual) Seg Neutrophils # Seg Neutrophils # Man Lymphocytes # (Manual) Monocytes # (Manual) Basophils # (Manual) Percent Retic PT INR APTT Heparin Anti-Xa Level < 0.10 L POC ABG pH POC ABG pCO2 POC ABG pO2 Sodium Potassium Chloride Carbon Dioxide BUN Creatinine Glucose POC Glucose 159 H 134 H Calcium Phosphorus Iron TIBC Lactate Dehydrogenase Total Creatine Kinase NT-Pro-B Natriuret Pep Total Protein Albumin Qkrnd-0-Gxsoqfdzp Mztyn-7-[place] Beta Globulins PEP Interpretation Cholesterol LDL Cholesterol Direct Vitamin B12 Urine Creatinine Crossmatch 04/19/16 04/19/16 04/19/16 04:18 04:18 04:25 WBC 19.0 H RBC 3.58 L Hgb 9.3 L Hct 28.8 L MCV 80 L MCH 26 L MCHC RDW 15.5 H Plt Count Lymph % (Auto) 2.8 L [place] % (Auto) 7.4 H Lymph # 0.5 L [place] # 1.4 H Baso # Seg Neutrophils % 89.4 H Seg Neuts % (Manual) Lymphocytes % (Manual) Monocytes % (Manual) Seg Neutrophils # 17.0 H Seg Neutrophils # Man Lymphocytes # (Manual) Monocytes # (Manual) Basophils # (Manual) Percent Retic PT INR APTT Heparin Anti-Xa Level POC ABG pH 7.527 H POC ABG pCO2 27.1 L POC ABG pO2 Sodium Potassium Chloride Carbon Dioxide BUN 22 H Creatinine Glucose 215 H POC Glucose Calcium 8.0 L Phosphorus Iron TIBC Lactate Dehydrogenase Total Creatine Kinase NT-Pro-B Natriuret Pep Total Protein Albumin Tycwd-0-Wnzazvkhh Aksqt-9-Cehvqaadj Beta Globulins PEP Interpretation Cholesterol LDL Cholesterol Direct Vitamin B12 Urine Creatinine Crossmatch 04/19/16 04/19/16 04/19/16 05:45 08:10 14:08 WBC RBC Hgb Hct MCV MCH MCHC RDW Plt Count Lymph % (Auto) [place] % (Auto) Lymph # [place] # Baso # Seg Neutrophils % Seg Neuts % (Manual) Lymphocytes % (Manual) Monocytes % (Manual) Seg Neutrophils # Seg Neutrophils # Man Lymphocytes # (Manual) Monocytes # (Manual) Basophils # (Manual) Percent Retic PT 22.1 H INR 1.93 H APTT Heparin Anti-Xa Level 0.17 L POC ABG pH POC ABG pCO2 POC ABG pO2 Sodium Potassium Chloride Carbon Dioxide BUN Creatinine Glucose POC Glucose 196 H 318 H Calcium Phosphorus Iron TIBC Lactate Dehydrogenase Total Creatine Kinase NT-Pro-B Natriuret Pep Total Protein Albumin Svcbm-3-Ybelbpika Rpfcg-9-Nvzlmcutw Beta Globulins PEP Interpretation Cholesterol LDL Cholesterol Direct Vitamin B12 Urine Creatinine Crossmatch 04/19/16 04/20/16 04/20/16 17:27 03:55 03:55 WBC 18.5 H RBC 3.19 L Hgb 8.4 L Hct 25.7 L MCV 80 L MCH 26 L MCHC RDW 15.9 H Plt Count Lymph % (Auto) 4.3 L [place] % (Auto) 10.1 H Lymph # 0.8 L [place] # 1.9 H Baso # Seg Neutrophils % 85.2 H Seg Neuts % (Manual) Lymphocytes % (Manual) Monocytes % (Manual) Seg Neutrophils # 15.8 H Seg Neutrophils # Man Lymphocytes # (Manual) Monocytes # (Manual) Basophils # (Manual) Percent Retic PT 22.0 H INR 1.92 H APTT Heparin Anti-Xa Level 0.14 L POC ABG pH POC ABG pCO2 POC ABG pO2 Sodium Potassium Chloride Carbon Dioxide BUN Creatinine Glucose POC Glucose 230 H Calcium Phosphorus Iron TIBC Lactate Dehydrogenase Total Creatine Kinase NT-Pro-B Natriuret Pep Total Protein Albumin Pbeos-2-Fcysonwmz Xabrm-1-Owpyqibpt Beta Globulins PEP Interpretation Cholesterol LDL Cholesterol Direct Vitamin B12 Urine Creatinine Crossmatch 04/20/16 04/20/16 04/20/16 03:55 04:16 05:52 WBC RBC Hgb Hct MCV MCH MCHC RDW Plt Count Lymph % (Auto) [place] % (Auto) Lymph # [place] # Baso # Seg Neutrophils % Seg Neuts % (Manual) Lymphocytes % (Manual) Monocytes % (Manual) Seg Neutrophils # Seg Neutrophils # Man Lymphocytes # (Manual) Monocytes # (Manual) Basophils # (Manual) Percent Retic PT INR APTT Heparin Anti-Xa Level POC ABG pH 7.474 H POC ABG pCO2 26.5 L POC ABG pO2 Sodium Potassium Chloride Carbon Dioxide 18 L BUN 38 H Creatinine 2.7 H D Glucose 159 H POC Glucose 214 H Calcium 8.0 L Phosphorus Iron TIBC Lactate Dehydrogenase Total Creatine Kinase NT-Pro-B Natriuret Pep Total Protein Albumin Ivakd-2-Kwnkcrbzb Qywcg-9-Gsrcbzvgw Beta Globulins PEP Interpretation Cholesterol LDL Cholesterol Direct Vitamin B12 Urine Creatinine Crossmatch 04/20/16 04/20/16 04/20/16 10:32 11:27 11:50 WBC RBC Hgb Hct MCV MCH MCHC RDW Plt Count Lymph % (Auto) [place] % (Auto) Lymph # [place] # Baso # Seg Neutrophils % Seg Neuts % (Manual) Lymphocytes % (Manual) Monocytes % (Manual) Seg Neutrophils # Seg Neutrophils # Man Lymphocytes # (Manual) Monocytes # (Manual) Basophils # (Manual) Percent Retic PT INR APTT Heparin Anti-Xa Level POC ABG pH POC ABG pCO2 POC ABG pO2 Sodium Potassium Chloride Carbon Dioxide 20 L BUN 45 H Creatinine 3.0 H Glucose 215 H POC Glucose 248 H Calcium 8.0 L Phosphorus Iron TIBC Lactate Dehydrogenase Total Creatine Kinase NT-Pro-B Natriuret Pep Total Protein Albumin Byjyj-7-Xcrddgogh [place]-0-Rylatzrtl Beta Globulins PEP Interpretation Cholesterol LDL Cholesterol Direct Vitamin B12 Urine Creatinine 85.5 H Crossmatch 04/20/16 04/21/16 04/21/16 16:59 00:13 04:29 WBC RBC Hgb Hct MCV MCH MCHC RDW Plt Count Lymph % (Auto) [place] % (Auto) Lymph # [place] # Baso # Seg Neutrophils % Seg Neuts % (Manual) Lymphocytes % (Manual) Monocytes % (Manual) Seg Neutrophils # Seg Neutrophils # Man Lymphocytes # (Manual) Monocytes # (Manual) Basophils # (Manual) Percent Retic PT 18.1 H INR 1.50 H APTT Heparin Anti-Xa Level 0.10 L POC ABG pH POC ABG pCO2 POC ABG pO2 Sodium Potassium Chloride Carbon Dioxide BUN Creatinine Glucose POC Glucose 312 H 287 H Calcium Phosphorus Iron TIBC Lactate Dehydrogenase Total Creatine Kinase NT-Pro-B Natriuret Pep Total Protein Albumin Swqgk-1-Jqhrwyvze Fokjh-9-Gjzlpzdjm Beta Globulins PEP Interpretation Cholesterol LDL Cholesterol Direct Vitamin B12 Urine Creatinine Crossmatch 04/21/16 04/21/16 04/21/16 04:29 04:29 04:55 WBC 15.4 H RBC 3.24 L Hgb 8.4 L Hct 25.6 L MCV 79 L MCH 26 L MCHC RDW 16.1 H Plt Count Lymph % (Auto) 6.8 L [place] % (Auto) 12.9 H Lymph # 1.0 L [place] # 2.0 H Baso # Seg Neutrophils % 79.8 H Seg Neuts % (Manual) Lymphocytes % (Manual) Monocytes % (Manual) Seg Neutrophils # 12.3 H Seg Neutrophils # Man Lymphocytes # (Manual) Monocytes # (Manual) Basophils # (Manual) Percent Retic PT INR APTT Heparin Anti-Xa Level POC ABG pH 7.512 H POC ABG pCO2 25.4 L POC ABG pO2 Sodium 135 L Potassium Chloride Carbon Dioxide 18 L BUN 57 H Creatinine 3.9 H Glucose 202 H POC Glucose Calcium 8.0 L Phosphorus Iron TIBC Lactate Dehydrogenase Total Creatine Kinase NT-Pro-B Natriuret Pep Total Protein Albumin Itxbk-6-Hlvripqbj Gkund-2-Vabfabjpy Beta Globulins PEP Interpretation Cholesterol LDL Cholesterol Direct Vitamin B12 Urine Creatinine Crossmatch 04/21/16 04/21/16 04/21/16 05:20 12:08 12:16 WBC RBC Hgb Hct MCV MCH MCHC RDW Plt Count Lymph % (Auto) [place] % (Auto) Lymph # [place] # Baso # Seg Neutrophils % Seg Neuts % (Manual) Lymphocytes % (Manual) Monocytes % (Manual) Seg Neutrophils # Seg Neutrophils # Man Lymphocytes # (Manual) Monocytes # (Manual) Basophils # (Manual) Percent Retic PT INR APTT Heparin Anti-Xa Level 0.16 L POC ABG pH POC ABG pCO2 POC ABG pO2 Sodium Potassium Chloride Carbon Dioxide BUN Creatinine Glucose POC Glucose 203 H 221 H Calcium Phosphorus Iron TIBC Lactate Dehydrogenase Total Creatine Kinase NT-Pro-B Natriuret Pep Total Protein Albumin Teypv-7-Oxhvoghze Wbapm-2-Tsaaqdhkk Beta Globulins PEP Interpretation Cholesterol LDL Cholesterol Direct Vitamin B12 Urine Creatinine Crossmatch 04/21/16 04/22/16 04/22/16 17:22 05:01 05:20 WBC RBC Hgb Hct MCV MCH MCHC RDW Plt Count Lymph % (Auto) [place] % (Auto) Lymph # [place] # Baso # Seg Neutrophils % Seg Neuts % (Manual) Lymphocytes % (Manual) Monocytes % (Manual) Seg Neutrophils # Seg Neutrophils # Man Lymphocytes # (Manual) Monocytes # (Manual) Basophils # (Manual) Percent Retic PT 17.5 H INR 1.44 H APTT Heparin Anti-Xa Level POC ABG pH 7.460 H POC ABG pCO2 27.9 L POC ABG pO2 Sodium Potassium Chloride Carbon Dioxide BUN Creatinine Glucose POC Glucose 189 H Calcium Phosphorus Iron TIBC Lactate Dehydrogenase Total Creatine Kinase NT-Pro-B Natriuret Pep Total Protein Albumin Jrpzr-2-Vsdgkmtpa Yfotc-8-Qncrxgwiy Beta Globulins PEP Interpretation Cholesterol LDL Cholesterol Direct Vitamin B12 Urine Creatinine Crossmatch 04/22/16 04/22/16 04/22/16 05:43 06:40 08:08 WBC RBC Hgb Hct MCV MCH MCHC RDW Plt Count Lymph % (Auto) [place] % (Auto) Lymph # [place] # Baso # Seg Neutrophils % Seg Neuts % (Manual) Lymphocytes % (Manual) Monocytes % (Manual) Seg Neutrophils # Seg Neutrophils # Man Lymphocytes # (Manual) Monocytes # (Manual) Basophils # (Manual) Percent Retic PT INR APTT Heparin Anti-Xa Level POC ABG pH POC ABG pCO2 POC ABG pO2 Sodium Potassium Chloride Carbon Dioxide BUN Creatinine Glucose POC Glucose 56 L 136 H 134 H Calcium Phosphorus Iron TIBC Lactate Dehydrogenase Total Creatine Kinase NT-Pro-B Natriuret Pep Total Protein Albumin Hbzkx-6-Yqpujytwl Sxatw-7-Ejrpvjmca Beta Globulins PEP Interpretation Cholesterol LDL Cholesterol Direct Vitamin B12 Urine Creatinine Crossmatch 04/22/16 04/22/16 04/22/16 11:18 12:10 18:17 WBC RBC Hgb Hct MCV MCH MCHC RDW Plt Count Lymph % (Auto) [place] % (Auto) Lymph # [place] # Baso # Seg Neutrophils % Seg Neuts % (Manual) Lymphocytes % (Manual) Monocytes % (Manual) Seg Neutrophils # Seg Neutrophils # Man Lymphocytes # (Manual) Monocytes # (Manual) Basophils # (Manual) Percent Retic PT INR APTT Heparin Anti-Xa Level 0.12 L POC ABG pH POC ABG pCO2 POC ABG pO2 Sodium Potassium Chloride Carbon Dioxide BUN Creatinine Glucose POC Glucose 142 H 227 H Calcium Phosphorus Iron TIBC Lactate Dehydrogenase Total Creatine Kinase NT-Pro-B Natriuret Pep Total Protein Albumin Szhei-9-Zigpug[place] Gbnkk-1-Icqrdmrsi Beta Globulins PEP Interpretation Cholesterol LDL Cholesterol Direct Vitamin B12 Urine Creatinine Crossmatch 04/22/16 04/22/16 04/23/16 22:28 23:47 04:49 WBC RBC Hgb Hct MCV MCH MCHC RDW Plt Count Lymph % (Auto) [place] % (Auto) Lymph # [place] # Baso # Seg Neutrophils % Seg Neuts % (Manual) Lymphocytes % (Manual) Monocytes % (Manual) Seg Neutrophils # Seg Neutrophils # Man Lymphocytes # (Manual) Monocytes # (Manual) Basophils # (Manual) Percent Retic PT INR APTT Heparin Anti-Xa Level 0.16 L POC ABG pH POC ABG pCO2 32.6 L POC ABG pO2 122 H Sodium Potassium Chloride Carbon Dioxide BUN Creatinine Glucose POC Glucose 266 H Calcium Phosphorus Iron TIBC Lactate Dehydrogenase Total Creatine Kinase NT-Pro-B Natriuret Pep Total Protein Albumin Bsaka-2-Bjjckuktl Guahc-2-Gvmxvvxmc Beta Globulins PEP Interpretation Cholesterol LDL Cholesterol Direct Vitamin B12 Urine Creatinine Crossmatch 04/23/16 04/23/16 04/23/16 05:41 08:05 08:34 WBC RBC Hgb Hct MCV MCH MCHC RDW Plt Count Lymph % (Auto) [place] % (Auto) Lymph # [place] # Baso # Seg Neutrophils % Seg Neuts % (Manual) Lymphocytes % (Manual) Monocytes % (Manual) Seg Neutrophils # Seg Neutrophils # Man Lymphocytes # (Manual) Monocytes # (Manual) Basophils # (Manual) Percent Retic PT INR APTT Heparin Anti-Xa Level POC ABG pH POC ABG pCO2 POC ABG pO2 Sodium Potassium Chloride 109.5 H Carbon Dioxide 21 L BUN 23 H Creatinine Glucose 227 H POC Glucose 227 H 224 H Calcium 8.2 L Phosphorus Iron TIBC Lactate Dehydrogenase Total Creatine Kinase NT-Pro-B Natriuret Pep Total Protein Albumin Ruuyi-6-Dkppbecqv Cpjfi-3-Xfxraofep Beta Globulins PEP Interpretation Cholesterol LDL Cholesterol Direct Vitamin B12 Urine Creatinine Crossmatch 04/23/16 04/23/16 04/23/16 10:45 11:37 22:49 WBC RBC Hgb Hct MCV MCH MCHC RDW Plt Count Lymph % (Auto) [place] % (Auto) Lymph # [place] # Baso # Seg Neutrophils % Seg Neuts % (Manual) Lymphocytes % (Manual) Monocytes % (Manual) Seg Neutrophils # Seg Neutrophils # Man Lymphocytes # (Manual) Monocytes # (Manual) Basophils # (Manual) Percent Retic PT 15.9 H INR 1.28 H APTT Heparin Anti-Xa Level 0.12 L POC ABG pH POC ABG pCO2 POC ABG pO2 Sodium Potassium Chloride Carbon Dioxide BUN Creatinine Glucose POC Glucose 256 H Calcium Phosphorus Iron TIBC Lactate Dehydrogenase Total Creatine Kinase NT-Pro-B Natriuret Pep Total Protein Albumin Eujuv-7-Pxjkeczof Qhfqt-3-Hhkzwkkqi Beta Globulins PEP Interpretation Cholesterol LDL Cholesterol Direct Vitamin B12 Urine Creatinine Crossmatch 04/23/16 04/24/16 04/24/16 23:59 05:29 06:03 WBC RBC Hgb Hct MCV MCH MCHC RDW Plt Count Lymph % (Auto) [place] % (Auto) Lymph # [place] # Baso # Seg Neutrophils % Seg Neuts % (Manual) Lymphocytes % (Manual) Monocytes % (Manual) Seg Neutrophils # Seg Neutrophils # Man Lymphocytes # (Manual) Monocytes # (Manual) Basophils # (Manual) Percent Retic PT INR APTT Heparin Anti-Xa Level POC ABG pH 7.464 H POC ABG pCO2 32.4 L POC ABG pO2 115 H Sodium Potassium Chloride Carbon Dioxide BUN Creatinine Glucose POC Glucose 176 H 256 H Calcium Phosphorus Iron TIBC Lactate Dehydrogenase Total Creatine Kinase NT-Pro-B Natriuret Pep Total Protein Albumin Cmodv-0-Vtvmdradj Heqfy-8-Glnbhnotk Beta Globulins PEP Interpretation Cholesterol LDL Cholesterol Direct Vitamin B12 Urine Creatinine Crossmatch 04/24/16 04/24/16 04/24/16 07:59 12:10 17:17 WBC RBC Hgb Hct MCV MCH MCHC RDW Plt Count Lymph % (Auto) [place] % (Auto) Lymph # [place] # Baso # Seg Neutrophils % Seg Neuts % (Manual) Lymphocytes % (Manual) Monocytes % (Manual) Seg Neutrophils # Seg Neutrophils # Man Lymphocytes # (Manual) Monocytes # (Manual) Basophils # (Manual) Percent Retic PT INR APTT Heparin Anti-Xa Level 0.18 L POC ABG pH POC ABG pCO2 POC ABG pO2 Sodium Potassium Chloride Carbon Dioxide BUN Creatinine Glucose POC Glucose 304 H 325 H Calcium Phosphorus Iron TIBC Lactate Dehydrogenase Total Creatine Kinase NT-Pro-B Natriuret Pep Total Protein Albumin Xzwsr-1-Bjlxauavh Tcame-1-Zqaukbzvh Beta Globulins PEP Interpretation Cholesterol LDL Cholesterol Direct Vitamin B12 Urine Creatinine Crossmatch 04/25/16 04/25/16 04/25/16 00:52 06:40 06:44 WBC RBC Hgb Hct MCV MCH MCHC RDW Plt Count Lymph % (Auto) [place] % (Auto) Lymph # [place] # Baso # Seg Neutrophils % Seg Neuts % (Manual) Lymphocytes % (Manual) Monocytes % (Manual) Seg Neutrophils # Seg Neutrophils # Man Lymphocytes # (Manual) Monocytes # (Manual) Basophils # (Manual) Percent Retic PT INR APTT Heparin Anti-Xa Level 0.11 L POC ABG pH POC ABG pCO2 POC ABG pO2 Sodium Potassium Chloride Carbon Dioxide BUN Creatinine Glucose POC Glucose 212 H 184 H Calcium Phosphorus Iron TIBC Lactate Dehydrogenase Total Creatine Kinase NT-Pro-B Natriuret Pep Total Protein Albumin Noirp-3-Zxyltpfyi Gbmgj-4-Jzizjmkpp Beta Globulins PEP Interpretation Cholesterol LDL Cholesterol Direct Vitamin B12 Urine Creatinine Crossmatch 04/25/16 04/25/16 04/25/16 11:40 13:26 17:27 WBC RBC Hgb Hct MCV MCH MCHC RDW Plt Count Lymph % (Auto) [place] % (Auto) Lymph # [place] # Baso # Seg Neutrophils % Seg Neuts % (Manual) Lymphocytes % (Manual) Monocytes % (Manual) Seg Neutrophils # Seg Neutrophils # Man Lymphocytes # (Manual) Monocytes # (Manual) Basophils # (Manual) Percent Retic PT INR APTT Heparin Anti-Xa Level 0.21 L POC ABG pH POC ABG pCO2 POC ABG pO2 Sodium Potassium Chloride Carbon Dioxide BUN Creatinine Glucose POC Glucose 206 H 204 H Calcium Phosphorus Iron TIBC Lactate Dehydrogenase Total Creatine Kinase NT-Pro-B Natriuret Pep Total Protein Albumin Lwdkf-3-Mjpciuzzg Ueufs-5-Paxpukdkt Beta Globulins PEP Interpretation Cholesterol LDL Cholesterol Direct Vitamin B12 Urine Creatinine Crossmatch 04/25/16 04/26/16 04/26/16 23:46 06:31 11:51 WBC RBC Hgb Hct MCV MCH MCHC RDW Plt Count Lymph % (Auto) [place] % (Auto) Lymph # [place] # Baso # Seg Neutrophils % Seg Neuts % (Manual) Lymphocytes % (Manual) Monocytes % (Manual) Seg Neutrophils # Seg Neutrophils # Man Lymphocytes # (Manual) Monocytes # (Manual) Basophils # (Manual) Percent Retic PT INR APTT Heparin Anti-Xa Level POC ABG pH POC ABG pCO2 POC ABG pO2 Sodium Potassium Chloride Carbon Dioxide BUN Creatinine Glucose POC Glucose 162 H 148 H 178 H Calcium Phosphorus Iron TIBC Lactate Dehydrogenase Total Creatine Kinase NT-Pro-B Natriuret Pep Total Protein Albumin Zirxu-1-Hjtoacnqz Fubzf-3-Zskayoupp Beta Globulins PEP Interpretation Cholesterol LDL Cholesterol Direct Vitamin B12 Urine Creatinine Crossmatch 04/26/16 04/26/16 04/26/16 12:17 16:16 18:14 WBC RBC Hgb Hct MCV MCH MCHC RDW Plt Count Lymph % (Auto) [place] % (Auto) Lymph # [place] # Baso # Seg Neutrophils % Seg Neuts % (Manual) Lymphocytes % (Manual) Monocytes % (Manual) Seg Neutrophils # Seg Neutrophils # Man Lymphocytes # (Manual) Monocytes # (Manual) Basophils # (Manual) Percent Retic PT INR APTT Heparin Anti-Xa Level POC ABG pH 7.513 H POC ABG pCO2 POC ABG pO2 76 L Sodium Potassium Chloride Carbon Dioxide BUN Creatinine Glucose POC Glucose 186 H 172 H Calcium Phosphorus Iron TIBC Lactate Dehydrogenase Total Creatine Kinase NT-Pro-B Natriuret Pep Total Protein Albumin Wlgzk-5-Xaddefjtn Kqzhn-5-Vrqpdygsm Beta Globulins PEP Interpretation Cholesterol LDL Cholesterol Direct Vitamin B12 Urine Creatinine Crossmatch 04/26/16 04/26/16 04/27/16 19:27 23:28 04:21 WBC 13.1 H RBC 2.99 L Hgb 7.8 L Hct 24.0 L MCV 81 L MCH 26 L MCHC RDW 16.7 H Plt Count 486 H Lymph % (Auto) 12.5 L [place] % (Auto) 7.9 H Lymph # [place] # 1.0 H Baso # Seg Neutrophils % 77.5 H Seg Neuts % (Manual) Lymphocytes % (Manual) Monocytes % (Manual) Seg Neutrophils # 10.2 H Seg Neutrophils # Man Lymphocytes # (Manual) Monocytes # (Manual) Basophils # (Manual) Percent Retic PT INR APTT Heparin Anti-Xa Level 0.22 L POC ABG pH POC ABG pCO2 POC ABG pO2 Sodium Potassium Chloride Carbon Dioxide BUN Creatinine Glucose POC Glucose 141 H Calcium Phosphorus Iron TIBC Lactate Dehydrogenase Total Creatine Kinase NT-Pro-B Natriuret Pep Total Protein Albumin Zpbfq-8-Grzukfdnq Abhps-7-Ynqmlhdai Beta Globulins PEP Interpretation Cholesterol LDL Cholesterol Direct Vitamin B12 Urine Creatinine Crossmatch 04/27/16 04/27/16 04/27/16 04:21 05:46 11:04 WBC RBC Hgb Hct MCV MCH MCHC RDW Plt Count Lymph % (Auto) [place] % (Auto) Lymph # [place] # Baso # Seg Neutrophils % Seg Neuts % (Manual) Lymphocytes % (Manual) Monocytes % (Manual) Seg Neutrophils # Seg Neutrophils # Man Lymphocytes # (Manual) Monocytes # (Manual) Basophils # (Manual) Percent Retic PT INR APTT Heparin Anti-Xa Level POC ABG pH 7.489 H POC ABG pCO2 POC ABG pO2 71 L Sodium Potassium Chloride Carbon Dioxide BUN Creatinine 0.6 L Glucose 187 H POC Glucose 192 H Calcium 8.0 L Phosphorus Iron TIBC Lactate Dehydrogenase Total Creatine Kinase NT-Pro-B Natriuret Pep Total Protein 6.0 L Albumin 2.0 L Hfpwj-3-Eigmbvzyh Ealos-9-Xenyoyanu Beta Globulins PEP Interpretation Cholesterol LDL Cholesterol Direct Vitamin B12 Urine Creatinine Crossmatch 04/27/16 04/27/16 04/27/16 14:12 21:58 23:38 WBC RBC Hgb Hct MCV MCH MCHC RDW Plt Count Lymph % (Auto) [place] % (Auto) Lymph # [place] # Baso # Seg Neutrophils % Seg Neuts % (Manual) Lymphocytes % (Manual) Monocytes % (Manual) Seg Neutrophils # Seg Neutrophils # Man Lymphocytes # (Manual) Monocytes # (Manual) Basophils # (Manual) Percent Retic PT INR APTT Heparin Anti-Xa Level 0.24 L POC ABG pH POC ABG pCO2 POC ABG pO2 Sodium Potassium Chloride Carbon Dioxide BUN Creatinine Glucose POC Glucose 216 H 181 H Calcium Phosphorus Iron TIBC Lactate Dehydrogenase Total Creatine Kinase NT-Pro-B Natriuret Pep Total Protein Albumin Hqxfs-8-Xnrtucaaq Bxwpq-1-Addiffvzd Beta Globulins PEP Interpretation Cholesterol LDL Cholesterol Direct Vitamin B12 Urine Creatinine Crossmatch 04/28/16 04/28/16 04/28/16 04:28 05:52 11:31 WBC RBC Hgb Hct MCV MCH MCHC RDW Plt Count Lymph % (Auto) [place] % (Auto) Lymph # [place] # Baso # Seg Neutrophils % Seg Neuts % (Manual) Lymphocytes % (Manual) Monocytes % (Manual) Seg Neutrophils # Seg Neutrophils # Man Lymphocytes # (Manual) Monocytes # (Manual) Basophils # (Manual) Percent Retic PT INR APTT Heparin Anti-Xa Level POC ABG pH 7.524 H POC ABG pCO2 POC ABG pO2 Sodium Potassium Chloride Carbon Dioxide BUN Creatinine Glucose POC Glucose 254 H 280 H Calcium Phosphorus Iron TIBC Lactate Dehydrogenase Total Creatine Kinase NT-Pro-B Natriuret Pep Total Protein Albumin Fmais-8-Lvrxnptti Cbybh-2-Phtfrdrid Beta Globulins PEP Interpretation Cholesterol LDL Cholesterol Direct Vitamin B12 Urine Creatinine Crossmatch 04/28/16 04/28/16 04/29/16 17:30 19:52 00:47 WBC RBC Hgb Hct MCV MCH MCHC RDW Plt Count Lymph % (Auto) [place] % (Auto) Lymph # [place] # Baso # Seg Neutrophils % Seg Neuts % (Manual) Lymphocytes % (Manual) Monocytes % (Manual) Seg Neutrophils # Seg Neutrophils # Man Lymphocytes # (Manual) Monocytes # (Manual) Basophils # (Manual) Percent Retic PT INR APTT Heparin Anti-Xa Level 0.15 L POC ABG pH POC ABG pCO2 POC ABG pO2 Sodium Potassium Chloride Carbon Dioxide BUN Creatinine Glucose POC Glucose 208 H 265 H Calcium Phosphorus Iron TIBC Lactate Dehydrogenase Total Creatine Kinase NT-Pro-B Natriuret Pep Total Protein Albumin Sdhww-0-Bmpupnikk Zhcmc-1-Yiaiuvjvm Beta Globulins PEP Interpretation Cholesterol LDL Cholesterol Direct Vitamin B12 Urine Creatinine Crossmatch 04/29/16 04/29/16 04/29/16 04:00 04:00 04:29 WBC 13.4 H RBC 2.56 L Hgb 6.9 L Hct 20.6 L MCV 81 L MCH 27 L MCHC RDW 16.2 H Plt Count 513 H Lymph % (Auto) 10.0 L [place] % (Auto) 12.0 H Lymph # [place] # 1.6 H Baso # Seg Neutrophils % 77.1 H Seg Neuts % (Manual) Lymphocytes % (Manual) Monocytes % (Manual) Seg Neutrophils # 10.4 H Seg Neutrophils # Man Lymphocytes # (Manual) Monocytes # (Manual) Basophils # (Manual) Percent Retic PT INR APTT Heparin Anti-Xa Level POC ABG pH 7.501 H POC ABG pCO2 POC ABG pO2 76 L Sodium Potassium Chloride Carbon Dioxide BUN 27 H Creatinine Glucose 204 H POC Glucose Calcium 8.1 L Phosphorus Iron TIBC Lactate Dehydrogenase Total Creatine Kinase NT-Pro-B Natriuret Pep Total Protein Albumin Gnrzs-0-Xzwqlgsin Rcqxb-3-Lvrunbdpf Beta Globulins PEP Interpretation Cholesterol LDL Cholesterol Direct Vitamin B12 Urine Creatinine Crossmatch 04/29/16 04/29/16 04/29/16 06:03 10:05 10:16 WBC RBC Hgb Hct MCV MCH MCHC RDW Plt Count Lymph % (Auto) [place] % (Auto) Lymph # [place] # Baso # Seg Neutrophils % Seg Neuts % (Manual) Lymphocytes % (Manual) Monocytes % (Manual) Seg Neutrophils # Seg Neutrophils # Man Lymphocytes # (Manual) Monocytes # (Manual) Basophils # (Manual) Percent Retic 3.68 H PT INR APTT Heparin Anti-Xa Level POC ABG pH POC ABG pCO2 POC ABG pO2 Sodium Potassium Chloride Carbon Dioxide BUN Creatinine Glucose POC Glucose 192 H Calcium Phosphorus Iron TIBC Lactate Dehydrogenase Total Creatine Kinase NT-Pro-B Natriuret Pep Total Protein Albumin Oafdb-4-Adcdeqvuq Ghayu-7-Qsztdgczo Beta Globulins PEP Interpretation Cholesterol LDL Cholesterol Direct Vitamin B12 Urine Creatinine Crossmatch See Detail 04/29/16 04/29/16 04/29/16 10:16 10:16 11:23 WBC RBC Hgb Hct MCV MCH MCHC RDW Plt Count Lymph % (Auto) [place] % (Auto) Lymph # [place] # Baso # Seg Neutrophils % Seg Neuts % (Manual) Lymphocytes % (Manual) Monocytes % (Manual) Seg Neutrophils # Seg Neutrophils # Man Lymphocytes # (Manual) Monocytes # (Manual) Basophils # (Manual) Percent Retic PT INR APTT Heparin Anti-Xa Level POC ABG pH POC ABG pCO2 POC ABG pO2 Sodium Potassium Chloride Carbon Dioxide BUN Creatinine Glucose POC Glucose 116 H Calcium Phosphorus Iron 10 L TIBC 138 L Lactate Dehydrogenase 204 H Total Creatine Kinase NT-Pro-B Natriuret Pep Total Protein Albumin Sfypc-0-Atskyofpp Fevoa-5-Suyxigfhd Beta Globulins PEP Interpretation Cholesterol LDL Cholesterol Direct Vitamin B12 1005 H Urine Creatinine Crossmatch 04/29/16 04/29/16 04/30/16 17:34 23:19 03:19 WBC RBC Hgb 9.0 L Hct 26.7 L D MCV MCH MCHC RDW Plt Count Lymph % (Auto) [place] % (Auto) Lymph # [place] # Baso # Seg Neutrophils % Seg Neuts % (Manual) Lymphocytes % (Manual) Monocytes % (Manual) Seg Neutrophils # Seg Neutrophils # Man Lymphocytes # (Manual) Monocytes # (Manual) Basophils # (Manual) Percent Retic PT INR APTT Heparin Anti-Xa Level POC ABG pH POC ABG pCO2 POC ABG pO2 Sodium Potassium Chloride Carbon Dioxide BUN Creatinine Glucose POC Glucose 142 H 242 H Calcium Phosphorus Iron TIBC Lactate Dehydrogenase Total Creatine Kinase NT-Pro-B Natriuret Pep Total Protein Albumin Vctmf-4-Jdloyzuzg Sztnh-8-Ehdyypddg Beta Globulins PEP Interpretation Cholesterol LDL Cholesterol Direct Vitamin B12 Urine Creatinine Crossmatch 04/30/16 04/30/16 04/30/16 04:10 04:10 04:32 WBC 13.8 H RBC 3.54 L Hgb 9.3 L Hct 29.1 L MCV 82 L MCH 26 L MCHC RDW 16.5 H Plt Count 535 H Lymph % (Auto) 7.5 L [place] % (Auto) 13.8 H Lymph # 1.0 L [place] # 1.9 H Baso # Seg Neutrophils % 78.0 H Seg Neuts % (Manual) Lymphocytes % (Manual) Monocytes % (Manual) Seg Neutrophils # 10.7 H Seg Neutrophils # Man Lymphocytes # (Manual) Monocytes # (Manual) Basophils # (Manual) Percent Retic PT INR APTT Heparin Anti-Xa Level POC ABG pH 7.519 H POC ABG pCO2 33.6 L POC ABG pO2 79 L Sodium 146 H Potassium Chloride Carbon Dioxide BUN Creatinine 0.7 L Glucose 242 H POC Glucose Calcium 8.3 L Phosphorus Iron TIBC Lactate Dehydrogenase Total Creatine Kinase NT-Pro-B Natriuret Pep Total Protein Albumin Asfrv-8-Qpscqsxhr Ztyej-8-Cihkmiscq Beta Globulins PEP Interpretation Cholesterol LDL Cholesterol Direct Vitamin B12 Urine Creatinine Crossmatch 04/30/16 04/30/16 04/30/16 05:33 11:23 17:26 WBC RBC Hgb Hct MCV MCH MCHC RDW Plt Count Lymph % (Auto) [place] % (Auto) Lymph # [place] # Baso # Seg Neutrophils % Seg Neuts % (Manual) Lymphocytes % (Manual) Monocytes % (Manual) Seg Neutrophils # Seg Neutrophils # Man Lymphocytes # (Manual) Monocytes # (Manual) Basophils # (Manual) Percent Retic PT INR APTT Heparin Anti-Xa Level POC ABG pH POC ABG pCO2 POC ABG pO2 Sodium Potassium Chloride Carbon Dioxide BUN Creatinine Glucose POC Glucose 242 H 305 H 281 H Calcium Phosphorus Iron TIBC Lactate Dehydrogenase Total Creatine Kinase NT-Pro-B Natriuret Pep Total Protein Albumin Fcaaa-0-Gpazjyflr Sizia-9-Kpgjyepes Beta Globulins PEP Interpretation Cholesterol LDL Cholesterol Direct Vitamin B12 Urine Creatinine Crossmatch 04/30/16 05/01/16 05/01/16 23:53 04:00 04:00 WBC 15.9 H RBC 2.99 L Hgb 7.9 L Hct 24.4 L MCV 82 L MCH 26 L MCHC RDW 16.9 H Plt Count 481 H Lymph % (Auto) 9.3 L [place] % (Auto) 15.0 H Lymph # [place] # 2.4 H Baso # Seg Neutrophils % 74.9 H Seg Neuts % (Manual) Lymphocytes % (Manual) Monocytes % (Manual) Seg Neutrophils # 11.9 H Seg Neutrophils # Man Lymphocytes # (Manual) Monocytes # (Manual) Basophils # (Manual) Percent Retic PT INR APTT Heparin Anti-Xa Level POC ABG pH POC ABG pCO2 POC ABG pO2 Sodium 147 H Potassium Chloride 107.8 H Carbon Dioxide BUN 22 H Creatinine 0.7 L Glucose 229 H POC Glucose 207 H Calcium 8.2 L Phosphorus Iron TIBC Lactate Dehydrogenase Total Creatine Kinase NT-Pro-B Natriuret Pep Total Protein Albumin Gzias-5-Kcgopwiov Tryit-7-Okzpjetod Beta Globulins PEP Interpretation Cholesterol LDL Cholesterol Direct Vitamin B12 Urine Creatinine Crossmatch 05/01/16 05/01/16 05/01/16 05:12 07:41 12:33 WBC RBC Hgb Hct MCV MCH MCHC RDW Plt Count Lymph % (Auto) [place] % (Auto) Lymph # [place] # Baso # Seg Neutrophils % Seg Neuts % (Manual) Lymphocytes % (Manual) Monocytes % (Manual) Seg Neutrophils # Seg Neutrophils # Man Lymphocytes # (Manual) Monocytes # (Manual) Basophils # (Manual) Percent Retic PT INR APTT Heparin Anti-Xa Level 0.16 L POC ABG pH POC ABG pCO2 POC ABG pO2 Sodium Potassium Chloride Carbon Dioxide BUN Creatinine Glucose POC Glucose 284 H 186 H Calcium Phosphorus Iron TIBC Lactate Dehydrogenase Total Creatine Kinase NT-Pro-B Natriuret Pep Total Protein Albumin Qvtic-1-Wfwtvlbqu Sjxrs-8-Jimpcykef Beta Globulins PEP Interpretation Cholesterol LDL Cholesterol Direct Vitamin B12 Urine Creatinine Crossmatch 05/01/16 05/01/16 05/02/16 17:24 23:19 04:48 WBC 17.2 H RBC 3.09 L Hgb 8.1 L Hct 25.5 L MCV 83 L MCH 26 L MCHC RDW 17.3 H Plt Count 507 H Lymph % (Auto) 8.0 L [place] % (Auto) 13.6 H Lymph # [place] # 2.3 H Baso # Seg Neutrophils % 77.5 H Seg Neuts % (Manual) Lymphocytes % (Manual) Monocytes % (Manual) Seg Neutrophils # 13.4 H Seg Neutrophils # Man Lymphocytes # (Manual) Monocytes # (Manual) Basophils # (Manual) Percent Retic PT INR APTT Heparin Anti-Xa Level POC ABG pH POC ABG pCO2 POC ABG pO2 Sodium Potassium Chloride Carbon Dioxide BUN Creatinine Glucose POC Glucose 171 H 132 H Calcium Phosphorus Iron TIBC Lactate Dehydrogenase Total Creatine Kinase NT-Pro-B Natriuret Pep Total Protein Albumin Fvxov-4-Dgzchfolp Epqig-9-Fvjcaudrg Beta Globulins PEP Interpretation Cholesterol LDL Cholesterol Direct Vitamin B12 Urine Creatinine Crossmatch 05/02/16 05/02/16 05/02/16 04:48 04:48 05:42 WBC RBC Hgb Hct MCV MCH MCHC RDW Plt Count Lymph % (Auto) [place] % (Auto) Lymph # [place] # Baso # Seg Neutrophils % Seg Neuts % (Manual) Lymphocytes % (Manual) Monocytes % (Manual) Seg Neutrophils # Seg Neutrophils # Man Lymphocytes # (Manual) Monocytes # (Manual) Basophils # (Manual) Percent Retic PT INR APTT Heparin Anti-Xa Level 0.19 L POC ABG pH POC ABG pCO2 POC ABG pO2 Sodium 149 H Potassium Chloride 109.9 H Carbon Dioxide BUN 24 H Creatinine Glucose 224 H POC Glucose 253 H Calcium 8.2 L Phosphorus Iron TIBC Lactate Dehydrogenase Total Creatine Kinase NT-Pro-B Natriuret Pep Total Protein Albumin Qzibl-7-Jsfkfixhi Eexml-1-Xzmwyrgmq Beta Globulins PEP Interpretation Cholesterol LDL Cholesterol Direct Vitamin B12 Urine Creatinine Crossmatch 05/02/16 05/02/16 05/02/16 12:01 16:40 23:35 WBC RBC Hgb Hct MCV MCH MCHC RDW Plt Count Lymph % (Auto) [place] % (Auto) Lymph # [place] # Baso # Seg Neutrophils % Seg Neuts % (Manual) Lymphocytes % (Manual) Monocytes % (Manual) Seg Neutrophils # Seg Neutrophils # Man Lymphocytes # (Manual) Monocytes # (Manual) Basophils # (Manual) Percent Retic PT INR APTT Heparin Anti-Xa Level POC ABG pH POC ABG pCO2 POC ABG pO2 Sodium Potassium Chloride Carbon Dioxide BUN Creatinine Glucose POC Glucose 197 H 126 H 303 H Calcium Phosphorus Iron TIBC Lactate Dehydrogenase Total Creatine Kinase NT-Pro-B Natriuret Pep Total Protein Albumin Mhoty-7-Cpphqdrti Alnaz-3-Odfiafjxo Beta Globulins PEP Interpretation Cholesterol LDL Cholesterol Direct Vitamin B12 Urine Creatinine Crossmatch 05/03/16 05/03/16 05/03/16 04:31 04:31 04:31 WBC 19.1 H RBC 3.15 L Hgb 8.6 L Hct 25.7 L MCV 82 L MCH MCHC RDW 17.4 H Plt Count 525 H Lymph % (Auto) [place] % (Auto) Lymph # [place] # Baso # Seg Neutrophils % Seg Neuts % (Manual) Lymphocytes % (Manual) 10.0 L Monocytes % (Manual) 13.0 H Seg Neutrophils # Seg Neutrophils # Man 13.2 H Lymphocytes # (Manual) Monocytes # (Manual) 2.5 H Basophils # (Manual) 0.2 H Percent Retic PT INR APTT Heparin Anti-Xa Level 0.16 L POC ABG pH POC ABG pCO2 POC ABG pO2 Sodium 151 H Potassium Chloride 112.9 H Carbon Dioxide BUN 24 H Creatinine 0.7 L Glucose 303 H POC Glucose Calcium Phosphorus Iron TIBC Lactate Dehydrogenase Total Creatine Kinase NT-Pro-B Natriuret Pep Total Protein Albumin Tedtw-5-Rsjrdcwlh Wqnvx-6-Bfmvzxyjt Beta Globulins PEP Interpretation Cholesterol LDL Cholesterol Direct Vitamin B12 Urine Creatinine Crossmatch
[2016-05-03] MEDS ORDERED: D5W 1,000 ML IV SCH (11:00)
[2016-05-03] MEDS ORDERED: LEVEMIR SUB-Q ONE (12:00)
--- NOTE | 2016-05-03 13:36 | Progress Note ---
Assessment and Plan Assessment and plan: 1. Acute respiratory failure. Patient reintubated on 04/17/16. Continue mechanical ventilation per pulmonary. Tracheostomy on 04/29/16. Continue CPAP trials 2. Acute CVA. CT scan revealed acute ischemic infarct in the right cerebellum. MRI reveals subacute infarct in the right cerebellar hemisphere with associated edema and mass effect as previously described. Patient also with multiple areas of acute infarct in the left occipital and frontal lobes that are most likely embolic. LIZZIE done- No thrombus but decreased flow. Cardiology recommends anticoagulation with Coumadin. 3. Hypotension. Resolved. Patient currently off pressors of Levophed. Echocardiogram revealed EF of 50-55%. 4. Encephalopathy. EEG normal. Etiology likely secondary to CVA +/- hypertension. 5. Group B strep UTI-treated 6. Accelerated hypertension. Continue antihypertensive medications 7. CAD-stable 8. Seizures-continue Keppra. EEG normal. 9. Type 2 diabetes mellitus. Glycemic control. 10. History of aortic dissection status post repair. 11. History of prosthetic aortic valve replacement. Echo with normal function on 08/2015. 12. DVT prophylaxis-on heparin drip. 13. GI prophylaxis-Pepcid 14. Oropharyngeal dysphagia. Patient failed swallow evaluation. Status post PEG placement on 04/17. 15. Anemia. Etiology is unknown. Check iron studies and Hemoccult of stool. Type and cross and transfuse 2 units. The high probability of a clinically significant, sudden or life threatening deterioration of the [respiratory and neurological] system(s) required my full and direct attention, intervention and personal management. The aggregate critical care time was [31] minutes. This time is in addition to time spent performing reported procedures but includes the following: [x] Data Review and interpretation [x] Patient assessment and monitoring of vital signs [x] Documentation [x] Medication orders and management History Interval history: 60 years old -[place] male with nonobstructive CAD per recent CAD, hypertension, hyperlipidemia, bioprosthetic aortic valve replacement, chronic kidney disease, diabetes and seizure disorder who was initially admitted for metabolic encephalopathy with hypernatremia. Patient developed respiratory failure during this hospitalization on 03/27 and was intubated placed on mechanical ventilation. Patient was later extubated during his hospitalization but was reintubated on the evening of 04/16/16. Patient now remains intubated on mechanical ventilation. Patient is also status post PEG tube placement on . Patient remains on mechanical ventilation. Patient status post tracheostomy on 04/29/16. Hospitalist Physical - Constitutional Vitals: Temp Pulse Resp BP Pulse Ox 101.8 F H 103 H 22 113/62 99 05/03/16 12:00 05/03/16 13:31 05/03/16 13:01 05/03/16 13:31 05/03/16 13:01 General appearance: Present: no acute distress, other (tracheostomy) - EENT Eyes: Present: PERRL, EOM intact ENT: hearing intact, clear oral mucosa, dentition normal - Neck Neck: Present: supple, normal ROM - Respiratory Respiratory effort: normal Respiratory: bilateral: diminished, rhonchi - Cardiovascular Rhythm: regular Heart Sounds: Present: S1 & S2. Absent: gallop, rub - Extremities Extremities: no ischemia, No edema, Full ROM - Abdominal General gastrointestinal: soft, non-tender, non-distended, normal bowel sounds - Integumentary Integumentary: Present: clear, warm, dry - Neurologic Neurologic: CNII-XII intact, moves all extremities Results - Labs CBC & Chem 7: 05/03/16 04:31 05/03/16 04:31 Labs: Laboratory Last Values WBC 19.1 K/mm3 (4.5-11.0) H 05/03/16 04:31 RBC 3.15 M/mm3 (3.65-5.03) L 05/03/16 04:31 Hgb 8.6 gm/dl (11.8-15.2) L 05/03/16 04:31 Hct 25.7 % (35.5-45.6) L 05/03/16 04:31 MCV 82 fl (84-94) L 05/03/16 04:31 MCH 28 pg (28-32) 05/03/16 04:31 MCHC 34 % (32-34) 05/03/16 04:31 RDW 17.4 % (13.2-15.2) H 05/03/16 04:31 Plt Count 525 K/mm3 (140-440) H 05/03/16 04:31 Lymph % (Auto) 8.0 % (13.4-35.0) L 05/02/16 04:48 [place] % (Auto) 13.6 % (0.0-7.3) H 05/02/16 04:48 Eos % (Auto) 0.2 % (0.0-4.3) 05/02/16 04:48 Baso % (Auto) 0.7 % (0.0-1.8) 05/02/16 04:48 Lymph # 1.4 K/mm3 (1.2-5.4) 05/02/16 04:48 [place] # 2.3 K/mm3 (0.0-0.8) H 05/02/16 04:48 Eos # 0.0 K/mm3 (0.0-0.4) 05/02/16 04:48 Baso # 0.1 K/mm3 (0.0-0.1) 05/02/16 04:48 Add Manual Diff Complete 05/03/16 04:31 Total Counted 100 05/03/16 04:31 Seg Neutrophils % 77.5 % (40.0-70.0) H 05/02/16 04:48 Seg Neuts % (Manual) 69.0 % (40.0-70.0) 05/03/16 04:31 Band Neutrophils % 7.0 % 05/03/16 04:31 Lymphocytes % (Manual) 10.0 % (13.4-35.0) L 05/03/16 04:31 Reactive Lymphs % (Man) 0 % 05/03/16 04:31 Monocytes % (Manual) 13.0 % (0.0-7.3) H 05/03/16 04:31 Eosinophils % (Manual) 0 % (0.0-4.3) 05/03/16 04:31 Basophils % (Manual) 1.0 % (0.0-1.8) 05/03/16 04:31 Metamyelocytes % 0 % 05/03/16 04:31 Myelocytes % 0 % 05/03/16 04:31 Promyelocytes % 0 % 05/03/16 04:31 Blast Cells % 0 % 05/03/16 04:31 Nucleated RBC % Not Reportable 05/03/16 04:31 Seg Neutrophils # 13.4 K/mm3 (1.8-7.7) H 05/02/16 04:48 Seg Neutrophils # Man 13.2 K/mm3 (1.8-7.7) H 05/03/16 04:31 Band Neutrophils # 1.3 K/mm3 05/03/16 04:31 Lymphocytes # (Manual) 1.9 K/mm3 (1.2-5.4) 05/03/16 04:31 Abs React Lymphs (Man) 0.0 K/mm3 05/03/16 04:31 Monocytes # (Manual) 2.5 K/mm3 (0.0-0.8) H 05/03/16 04:31 Eosinophils # (Manual) 0.0 K/mm3 (0.0-0.4) 05/03/16 04:31 Basophils # (Manual) 0.2 K/mm3 (0.0-0.1) H 05/03/16 04:31 Metamyelocytes # 0.0 K/mm3 05/03/16 04:31 Myelocytes # 0.0 K/mm3 05/03/16 04:31 Promyelocytes # 0.0 K/mm3 05/03/16 04:31 Blast Cells # 0.0 K/mm3 05/03/16 04:31 WBC Morphology Not Reportable 05/03/16 04:31 Hypersegmented Neuts Not Reportable 05/03/16 04:31 Hyposegmented Neuts Not Reportable 05/03/16 04:31 Hypogranular Neuts Not Reportable 05/03/16 04:31 Smudge Cells Not Reportable 05/03/16 04:31 Toxic Granulation Not Reportable 05/03/16 04:31 Toxic Vacuolation Not Reportable 05/03/16 04:31 Dohle Bodies Not Reportable 05/03/16 04:31 Pelger-Huet Anomaly Not Reportable 05/03/16 04:31 Corina Rods Not Reportable 05/03/16 04:31 Platelet Estimate Appears normal 05/03/16 04:31 Clumped Platelets Not Reportable 05/03/16 04:31 Plt Clumps, EDTA Not Reportable 05/03/16 04:31 Large Platelets Not Reportable 05/03/16 04:31 Giant Platelets Not Reportable 05/03/16 04:31 Platelet Satelliting Not Reportable 05/03/16 04:31 Plt Morphology Comment Not Reportable 05/03/16 04:31 RBC Morphology Not Reportable 05/03/16 04:31 Dimorphic RBCs Not Reportable 05/03/16 04:31 Polychromasia Not Reportable 05/03/16 04:31 Hypochromasia Not Reportable 05/03/16 04:31 Poikilocytosis Few 05/03/16 04:31 Anisocytosis 1+ 05/03/16 04:31 Microcytosis Not Reportable 05/03/16 04:31 Macrocytosis Not Reportable 05/03/16 04:31 Spherocytes Rare 05/03/16 04:31 Pappenheimer Bodies Not Reportable 05/03/16 04:31 Sickle Cells Not Reportable 05/03/16 04:31 Target Cells Few 05/03/16 04:31 Tear Drop Cells Not Reportable 05/03/16 04:31 Ovalocytes Not Reportable 05/03/16 04:31 Helmet Cells Not Reportable 05/03/16 04:31 Mcgrath-Ferron Bodies Not Reportable 05/03/16 04:31 [place] Rings Not Reportable 05/03/16 04:31 Vona Cells Not Reportable 05/03/16 04:31 Bite Cells Not Reportable 05/03/16 04:31 Crenated Cell Not Reportable 05/03/16 04:31 Elliptocytes Not Reportable 05/03/16 04:31 Acanthocytes (Spur) Not Reportable 05/03/16 04:31 Rouleaux Not Reportable 05/03/16 04:31 Hemoglobin C Crystals Not Reportable 05/03/16 04:31 Schistocytes Not Reportable 05/03/16 04:31 Malaria parasites Not Reportable 05/03/16 04:31 Percent Retic 3.68 % (0.78-2.58) H 04/29/16 10:16 Gideon Bodies Not Reportable 05/03/16 04:31 Hem Pathologist Commnt No 05/03/16 04:31 PT 15.9 Sec. (12.2-14.9) H 04/23/16 10:45 INR 1.28 (0.87-1.13) H 04/23/16 10:45 APTT 42.1 Sec. (24.2-36.6) H 04/04/16 09:55 Heparin Anti-Xa Level 0.16 U.I./ml (0.3-0.7) L 05/03/16 04:31 POC ABG pH 7.519 (7.35-7.45) H 04/30/16 04:32 POC ABG pCO2 33.6 (35-45) L 04/30/16 04:32 POC ABG pO2 79 (80-105) L 04/30/16 04:32 POC ABG HCO3 27.4 04/30/16 04:32 POC ABG Total CO2 28 04/30/16 04:32 POC ABG O2 Sat 97 04/30/16 04:32 POC ABG Base Excess 5 04/30/16 04:32 VBG pH 7.418 (7.320-7.420) 03/24/16 14:00 FiO2 25 % 04/30/16 04:32 Sodium 151 mmol/L (137-145) H 05/03/16 04:31 Potassium 4.3 mmol/L (3.6-5.0) 05/03/16 04:31 Chloride 112.9 mmol/L (98-107) H 05/03/16 04:31 Carbon Dioxide 27 mmol/L (22-30) 05/03/16 04:31 Anion Gap 15 mmol/L 05/03/16 04:31 BUN 24 mg/dL (9-20) H 05/03/16 04:31 Creatinine 0.7 mg/dL (0.8-1.5) L 05/03/16 04:31 Estimated GFR > 60 ml/min 05/03/16 04:31 BUN/Creatinine Ratio 34.28 % 05/03/16 04:31 Glucose 303 mg/dL (75-100) H 05/03/16 04:31 POC Glucose 452 (70-105) H 05/03/16 12:08 Hemoglobin A1c 9.6 % (4-6) H 03/24/16 14:00 Lactic Acid 1.6 mmol/L (0.7-2.0) 04/17/16 12:17 Calcium 8.6 mg/dL (8.4-10.2) 05/03/16 04:31 Phosphorus 2.3 mg/dL (2.5-4.5) L D 03/30/16 04:00 Magnesium 1.9 mg/dL (1.7-2.3) 03/30/16 04:00 Iron 10 ug/dL (49-181) L 04/29/16 10:16 TIBC 138 mcg/dL (250-450) L 04/29/16 10:16 Ferritin 336.4 ng/mL (13.0-400.0) 04/29/16 10:16 Total Bilirubin < 0.2 mg/dL (0.1-1.2) 04/27/16 04:21 AST 18 units/L (5-40) 04/27/16 04:21 ALT 39 units/L (7-56) 04/27/16 04:21 Alkaline Phosphatase 103 units/L (35-129) 04/27/16 04:21 Lactate Dehydrogenase 204 units/L (91-180) H 04/29/16 10:16 Total Creatine Kinase 356 units/L (55-170) H 03/28/16 13:29 Troponin T < 0.010 ng/mL (0.00-0.029) 03/28/16 13:29 NT-Pro-B Natriuret Pep 897.9 pg/mL (0-900) 04/03/16 04:10 Serum Total Protein 7.1 g/dL (6.1-8.1) 03/25/16 13:00 Total Protein 6.0 g/dL (6.3-8.2) L 04/27/16 04:21 Albumin 2.0 g/dL (3.9-5) L 04/27/16 04:21 Albumin/Globulin Ratio 0.5 % 04/27/16 04:21 [id number] See scanned report 03/31/16 12:20 [id number] See scanned report 03/31/16 12:20 Beta Globulins See scanned report 03/31/16 12:20 [id number] 2.46 mg/L (<=2.51) 03/25/16 13:00 Gamma Globulins See scanned report 03/31/16 12:20 Abnorm Protein Band 1 see below (()) 03/25/16 13:00 PEP Interpretation See scanned report 03/31/16 12:20 Triglycerides 88 mg/dL (2-149) 03/24/16 17:58 Cholesterol 221 mg/dL (50-199) H 03/24/16 17:58 LDL Cholesterol Direct 146 mg/dL (50-130) H 03/24/16 17:58 HDL Cholesterol 58 mg/dL (40-59) 03/24/16 17:58 Cholesterol/HDL Ratio 3.81 % 03/24/16 17:58 Vitamin B12 1005 pg/mL (211-911) H 04/29/16 10:16 Folate 12.78 ng/mL (7.3-26.0) 04/29/16 10:16 Urine Color Yellow (Yellow) 03/24/16 14:27 Urine Turbidity Clear (Clear) 03/24/16 14:27 Urine pH 5.0 (5.0-7.0) 03/24/16 14:27 Ur Specific [place] 1.017 (1.003-1.030) 03/24/16 14:27 Urine Protein <15 mg/dl mg/dL (Negative) 03/24/16 14:27 Urine Glucose (UA) >=500 mg/dL (Negative) 03/24/16 14:27 Urine Ketones Neg mg/dL (Negative) 03/24/16 14:27 Urine Blood Sm (Negative) 03/24/16 14:27 Urine Nitrite Neg (Negative) 03/24/16 14:27 Urine Bilirubin Neg (Negative) 03/24/16 14:27 Urine Urobilinogen < 2.0 mg/dL (<2.0) 03/24/16 14:27 Ur Leukocyte Esterase Neg (Negative) 03/24/16 14:27 Urine WBC (Auto) 2.0 /HPF (0.0-6.0) 03/24/16 14:27 Urine RBC (Auto) < 1.0 /HPF (0.0-6.0) 03/24/16 14:27 U Epithel Cells (Auto) 4.0 /HPF (0-13.0) 03/24/16 14:27 Hyaline Casts 1 /LPF 03/24/16 14:27 Urine Mucus Few /HPF 03/24/16 14:27 Ur Random Creatinine See scanned report 03/31/16 12:20 U Random Total Protein See scanned report 03/31/16 12:20 Urine Creatinine 85.5 mg/dL (0.1-20.0) H 04/20/16 11:50 Protein/Creatinin Ratio See scanned report 03/31/16 12:20 Urine Sodium 17 mEq/L 04/20/16 11:50 U Abnormal Prot Band 1 See scanned report 03/31/16 12:20 U Abnormal Prot Band 2 See scanned report 03/31/16 12:20 U Abnormal Prot Band 3 See scanned report 03/31/16 12:20 Ketones 1.0 mg/dL (0.2-2.8) 03/24/16 14:00 Blood Type A POSITIVE 04/29/16 10:05 Antibody Screen Negative 04/29/16 10:05 Crossmatch See Detail 04/29/16 10:05
[2016-05-04] MEDS: NOVOLOG SUB-Q SCH ×4 (00:30→18:14)
[2016-05-04] MEDS: DUONEB 0.5 MG-3 MG/3 ML SOLN IH SCH ×4 (02:08→20:06)
[2016-05-04 05:17] LABS: Hematocrit 23.8 % (35.5-45.6); Hemoglobin 7.8 gm/dl (11.8-15.2); Mean Corpuscular HGB Conc 33 % (32-34); Mean Corpuscular Hemoglobin 27 pg (28-32); Mean Corpuscular Volume 82 fl (84-94); Platelet Count 504 K/mm3 (140-440); Red Cell Distribution Width 17.9 % (13.2-15.2); White Blood Count 19.8 K/mm3 (4.5-11.0)
[2016-05-04 05:30] LABS: BUN/Creatinine Ratio 42.85; Blood Urea Nitrogen 30 mg/dL (9-20); Calcium 8.3 mg/dL (8.4-10.2); Carbon Dioxide 28 mmol/L (22-30); Chloride 106.3 mmol/L (98-107); Glucose 321 mg/dL (75-100); Potassium 3.8 mmol/L (3.6-5.0); Sodium 146 mmol/L (137-145)
[2016-05-04 05:31] LABS: Anion Gap 16 mmol/L
[2016-05-04 06:42] LABS: Blastocytes % (Manual) 0 %; Eosinophils % (Manual) 0 % (0.0-4.3)
[2016-05-04 06:43] LABS: Anisocytosis 1+; Diff Status Complete; Giant Platelets Rare; Hypersegmented Neutrophils Few; Platelet Estimate Appears Increased; Polychromasia Rare
[2016-05-04] MEDS: NORMODYNE PO SCH ×3 (08:49→21:00)
[2016-05-04] MEDS: HEPARIN/ 0.45% NACL-25,000 UNIT/500 ML 500 ML IV SCH (08:56)
[2016-05-04] MEDS: KEPPRA PO SCH ×2 (09:04→21:50)
[2016-05-04] MEDS: TYLENOL PO PRN (09:05)
[2016-05-04] MEDS: BABY ASPIRIN PO SCH (09:06)
[2016-05-04] MEDS: CORDARONE PO SCH (09:06)
[2016-05-04] MEDS: PEPCID PO SCH ×2 (09:07→21:51)
[2016-05-04] MEDS: NORVASC PO SCH (09:09)
[2016-05-04] MEDS: ZESTRIL PO SCH ×2 (09:10→21:43)
--- NOTE | 2016-05-04 09:17 | Progress Note ---
Assessment and Plan 61 y/o male with acute encephalopathy, secondary to embolic strokes, now with acute respiratory failure requiring re-intubation. 1. Fever: Spiking despite treatment of pseudomonas over a week ago. Repeated blood and urine cultures and will repeat CXR today. 2. Anticoagulation with coumadin now that trach in place. 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 3. Placement 4. Continue daily PSV trials as tolerated, even with fever. CCT 31 minutes. Subjective Date of service: 05/04/16 Principal diagnosis: CVA, acute respiratory failure Interval history: Trached. Continues to have fever. Eyes open. No family at bedside. last CXR was 04/29. no repeat blood cultures. Remainder is negative. Objective Vital Signs - 12hr 05/03/16 05/03/16 05/03/16 21:50 22:01 22:41 Temperature Pulse Rate 84 84 81 Pulse Rate [ Anterior Bilateral Throughout] Pulse Rate [ From Monitor] Respiratory 21 19 Rate Respiratory Rate [Anterior Bilateral Throughout] Blood Pressure 105/64 105/64 111/66 O2 Sat by Pulse 100 100 Oximetry O2 Sat by Pulse Oximetry [ Assessment] 05/03/16 05/03/16 05/03/16 23:01 23:19 23:50 Temperature Pulse Rate 81 79 79 Pulse Rate [ Anterior Bilateral Throughout] Pulse Rate [ From Monitor] Respiratory 20 19 Rate Respiratory Rate [Anterior Bilateral Throughout] Blood Pressure 111/66 111/66 111/66 O2 Sat by Pulse 100 100 99 Oximetry O2 Sat by Pulse Oximetry [ Assessment] 05/04/16 05/04/16 05/04/16 00:00 01:01 02:00 Temperature 99.8 F H Pulse Rate 79 78 Pulse Rate [ 61 Anterior Bilateral Throughout] Pulse Rate [ 79 From Monitor] Respiratory 18 18 Rate Respiratory 18 Rate [Anterior Bilateral Throughout] Blood Pressure 98/61 98/61 O2 Sat by Pulse 99 100 Oximetry O2 Sat by Pulse 99 Oximetry [ Assessment] 05/04/16 05/04/16 05/04/16 02:01 02:08 02:09 Temperature Pulse Rate 81 77 Pulse Rate [ 79 Anterior Bilateral Throughout] Pulse Rate [ From Monitor] Respiratory 14 12 Rate Respiratory 18 Rate [Anterior Bilateral Throughout] Blood Pressure 98/59 98/59 O2 Sat by Pulse 100 100 Oximetry O2 Sat by Pulse Oximetry [ Assessment] 05/04/16 05/04/16 05/04/16 03:00 03:29 04:00 Temperature 100.1 F H Pulse Rate 80 80 Pulse Rate [ Anterior Bilateral Throughout] Pulse Rate [ From Monitor] Respiratory 20 18 20 Rate Respiratory Rate [Anterior Bilateral Throughout] Blood Pressure 100/61 100/61 O2 Sat by Pulse 99 100 Oximetry O2 Sat by Pulse Oximetry [ Assessment] 05/04/16 05/04/16 05/04/16 04:01 04:25 05:00 Temperature Pulse Rate 76 79 87 Pulse Rate [ Anterior Bilateral Throughout] Pulse Rate [ From Monitor] Respiratory 16 Rate Respiratory Rate [Anterior Bilateral Throughout] Blood Pressure 100/61 100/61 O2 Sat by Pulse 100 99 Oximetry O2 Sat by Pulse Oximetry [ Assessment] 05/04/16 05/04/16 05/04/16 05:01 06:00 07:00 Temperature Pulse Rate 82 80 86 Pulse Rate [ Anterior Bilateral Throughout] Pulse Rate [ From Monitor] Respiratory 19 17 20 Rate Respiratory Rate [Anterior Bilateral Throughout] Blood Pressure 111/65 111/64 111/64 O2 Sat by Pulse 100 100 98 Oximetry O2 Sat by Pulse Oximetry [ Assessment] 05/04/16 05/04/16 05/04/16 07:04 07:28 07:30 Temperature Pulse Rate 86 Pulse Rate [ 75 Anterior Bilateral Throughout] Pulse Rate [ From Monitor] Respiratory 20 Rate Respiratory 26 H Rate [Anterior Bilateral Throughout] Blood Pressure 111/64 O2 Sat by Pulse 97 Oximetry O2 Sat by Pulse 96 Oximetry [ Assessment] 05/04/16 05/04/16 05/04/16 07:36 08:00 08:49 Temperature 100.8 F H Pulse Rate 90 89 Pulse Rate [ 74 Anterior Bilateral Throughout] Pulse Rate [ 90 From Monitor] Respiratory 26 H Rate Respiratory 26 H Rate [Anterior Bilateral Throughout] Blood Pressure 112/64 112/64 O2 Sat by Pulse 100 Oximetry O2 Sat by Pulse Oximetry [ Assessment] 05/04/16 05/04/16 09:09 09:10 Temperature Pulse Rate 96 H 96 H Pulse Rate [ Anterior Bilateral Throughout] Pulse Rate [ From Monitor] Respiratory Rate Respiratory Rate [Anterior Bilateral Throughout] Blood Pressure 111/67 111/67 O2 Sat by Pulse Oximetry O2 Sat by Pulse Oximetry [ Assessment] Constitutional: no acute distress, lethargic, other (opens eyes to tactile stimuli but not following commands on vent ac 12 fio2 25% tv 500) Eyes: non-icteric ENT: other (tracheotomy) Neck: supple Effort: normal Ascultation: Bilateral: clear, rhonchi (occasional) Percussion: Bilateral: not dull Cardiovascular: regular rate and rhythm Gastrointestinal: normoactive bowel sounds, soft, non-tender Extremities: no cyanosis, no edema Neurologic: other (GCS 4 on vent) CBC and BMP: 05/04/16 04:31 05/04/16 04:31 ABG, PT/INR, D-dimer: ABG POC ABG pH 7.519 (7.35-7.45) H 04/30/16 04:32 POC ABG pCO2 33.6 (35-45) L 04/30/16 04:32 POC ABG pO2 79 (80-105) L 04/30/16 04:32 POC ABG HCO3 27.4 04/30/16 04:32 POC ABG Total CO2 28 04/30/16 04:32 POC ABG O2 Sat 97 04/30/16 04:32 PT/INR, D-dimer PT 15.9 Sec. (12.2-14.9) H 04/23/16 10:45 INR 1.28 (0.87-1.13) H 04/23/16 10:45 Abnormal lab findings: Abnormal Labs 03/24/16 03/24/16 03/24/16 17:58 20:25 23:23 WBC RBC Hgb Hct MCV MCH MCHC RDW Plt Count Lymph % (Auto) Randall % (Auto) Lymph # Randall # Baso # Seg Neutrophils % Seg Neuts % (Manual) Lymphocytes % (Manual) Monocytes % (Manual) Seg Neutrophils # Seg Neutrophils # Man Lymphocytes # (Manual) Monocytes # (Manual) Basophils # (Manual) Percent Retic PT INR APTT Heparin Anti-Xa Level POC ABG pH POC ABG pCO2 POC ABG pO2 Sodium 169 H* Potassium 3.5 L Chloride 130.3 H Carbon Dioxide BUN 28 H Creatinine 1.8 H Glucose POC Glucose 112 H Calcium Phosphorus Iron TIBC Lactate Dehydrogenase Total Creatine Kinase NT-Pro-B Natriuret Pep Total Protein Albumin Ipeks-8-Ygrxhxppg Eqplo-9-Acdspgovf Beta Globulins PEP Interpretation Cholesterol 221 H LDL Cholesterol Direct 146 H Vitamin B12 Urine Creatinine Crossmatch 03/25/16 03/25/16 03/25/16 05:56 05:56 05:56 WBC 21.3 H RBC 6.32 H Hgb 16.7 H Hct 52.7 H MCV 83 L MCH 27 L MCHC RDW Plt Count Lymph % (Auto) Randall % (Auto) Lymph # Randall # Baso # Seg Neutrophils % Seg Neuts % (Manual) 91.0 H Lymphocytes % (Manual) 4.0 L Monocytes % (Manual) Seg Neutrophils # Seg Neutrophils # Man 19.4 H Lymphocytes # (Manual) 0.9 L Monocytes # (Manual) 0.9 H Basophils # (Manual) Percent Retic PT INR APTT Heparin Anti-Xa Level POC ABG pH POC ABG pCO2 POC ABG pO2 Sodium 172 H* Potassium 3.5 L Chloride 130.4 H Carbon Dioxide BUN 29 H Creatinine 1.8 H Glucose 187 H POC Glucose Calcium Phosphorus Iron TIBC Lactate Dehydrogenase 460 H Total Creatine Kinase NT-Pro-B Natriuret Pep Total Protein Albumin Xioaq-9-Vitswyqhp Eisnf-4-Edmoxzazc Beta Globulins PEP Interpretation Cholesterol LDL Cholesterol Direct Vitamin B12 Urine Creatinine Crossmatch 03/25/16 03/25/16 03/25/16 07:55 12:19 13:00 WBC RBC Hgb Hct MCV MCH MCHC RDW Plt Count Lymph % (Auto) Randall % (Auto) Lymph # Randall # Baso # Seg Neutrophils % Seg Neuts % (Manual) Lymphocytes % (Manual) Monocytes % (Manual) Seg Neutrophils # Seg Neutrophils # Man Lymphocytes # (Manual) Monocytes # (Manual) Basophils # (Manual) Percent Retic PT INR APTT Heparin Anti-Xa Level POC ABG pH POC ABG pCO2 POC ABG pO2 Sodium Potassium Chloride Carbon Dioxide BUN Creatinine Glucose POC Glucose 231 H 314 H Calcium Phosphorus Iron TIBC Lactate Dehydrogenase Total Creatine Kinase NT-Pro-B Natriuret Pep Total Protein Albumin 3.4 L Sipfq-3-Soqthsmlk 0.4 H Vgdsj-4-Lwlonsxln 1.1 H Beta Globulins 0.6 H PEP Interpretation see below H Cholesterol LDL Cholesterol Direct Vitamin B12 Urine Creatinine Crossmatch 03/25/16 03/25/16 03/26/16 16:41 22:45 08:32 WBC RBC Hgb Hct MCV MCH MCHC RDW Plt Count Lymph % (Auto) Randall % (Auto) Lymph # Randall # Baso # Seg Neutrophils % Seg Neuts % (Manual) Lymphocytes % (Manual) Monocytes % (Manual) Seg Neutrophils # Seg Neutrophils # Man Lymphocytes # (Manual) Monocytes # (Manual) Basophils # (Manual) Percent Retic PT INR APTT Heparin Anti-Xa Level POC ABG pH POC ABG pCO2 POC ABG pO2 Sodium Potassium Chloride Carbon Dioxide BUN Creatinine Glucose POC Glucose 444 H 326 H 360 H Calcium Phosphorus Iron TIBC Lactate Dehydrogenase Total Creatine Kinase NT-Pro-B Natriuret Pep Total Protein Albumin Dlann-7-Exfppccku Ydwxu-6-Wionkgcgs Beta Globulins PEP Interpretation Cholesterol LDL Cholesterol Direct Vitamin B12 Urine Creatinine Crossmatch 03/26/16 03/26/16 03/26/16 12:38 15:33 15:47 WBC RBC Hgb Hct MCV MCH MCHC RDW Plt Count Lymph % (Auto) Randall % (Auto) Lymph # Randall # Baso # Seg Neutrophils % Seg Neuts % (Manual) Lymphocytes % (Manual) Monocytes % (Manual) Seg Neutrophils # Seg Neutrophils # Man Lymphocytes # (Manual) Monocytes # (Manual) Basophils # (Manual) Percent Retic PT INR APTT Heparin Anti-Xa Level POC ABG pH 7.511 H POC ABG pCO2 26.5 L POC ABG pO2 70 L Sodium Potassium Chloride Carbon Dioxide BUN Creatinine Glucose POC Glucose 280 H 174 H Calcium Phosphorus Iron TIBC Lactate Dehydrogenase Total Creatine Kinase NT-Pro-B Natriuret Pep Total Protein Albumin Oxuac-9-Yauyswnmk Vswnj-1-Bfspoxkyl Beta Globulins PEP Interpretation Cholesterol LDL Cholesterol Direct Vitamin B12 Urine Creatinine Crossmatch 03/26/16 03/26/16 03/26/16 16:47 16:47 18:51 WBC 14.0 H RBC 5.17 H Hgb Hct MCV MCH 26 L MCHC 31 L RDW Plt Count 139 L Lymph % (Auto) Randall % (Auto) Lymph # Randall # Baso # Seg Neutrophils % Seg Neuts % (Manual) Lymphocytes % (Manual) Monocytes % (Manual) Seg Neutrophils # Seg Neutrophils # Man Lymphocytes # (Manual) Monocytes # (Manual) Basophils # (Manual) Percent Retic PT INR APTT Heparin Anti-Xa Level POC ABG pH POC ABG pCO2 33.9 L POC ABG pO2 150 H Sodium 164 H* Potassium 3.4 L Chloride 128.5 H Carbon Dioxide BUN 30 H Creatinine 2.2 H Glucose 121 H POC Glucose Calcium 8.1 L Phosphorus Iron TIBC Lactate Dehydrogenase Total Creatine Kinase NT-Pro-B Natriuret Pep Total Protein Albumin Idrzl-1-Cgsmrpgie Zzxnr-3-Cfqkbcqsx Beta Globulins PEP Interpretation Cholesterol LDL Cholesterol Direct Vitamin B12 Urine Creatinine Crossmatch 03/27/16 03/27/16 03/27/16 02:19 05:47 06:02 WBC RBC Hgb Hct MCV MCH MCHC RDW Plt Count Lymph % (Auto) Randall % (Auto) Lymph # Randall # Baso # Seg Neutrophils % Seg Neuts % (Manual) Lymphocytes % (Manual) Monocytes % (Manual) Seg Neutrophils # Seg Neutrophils # Man Lymphocytes # (Manual) Monocytes # (Manual) Basophils # (Manual) Percent Retic PT INR APTT Heparin Anti-Xa Level POC ABG pH POC ABG pCO2 27.3 L 30.3 L POC ABG pO2 50 L 112 H Sodium 158 H Potassium Chloride 126.7 H Carbon Dioxide 20 L BUN 25 H Creatinine 1.7 H Glucose POC Glucose Calcium 7.0 L Phosphorus Iron TIBC Lactate Dehydrogenase Total Creatine Kinase NT-Pro-B Natriuret Pep Total Protein Albumin Bkloz-9-Zysuzqfoq Dnmob-5-Bfnbbwsfw Beta Globulins PEP Interpretation Cholesterol LDL Cholesterol Direct Vitamin B12 Urine Creatinine Crossmatch 03/27/16 03/27/16 03/27/16 07:51 09:20 11:45 WBC 14.2 H RBC Hgb Hct MCV 83 L MCH 27 L MCHC RDW Plt Count 113 L Lymph % (Auto) Randall % (Auto) Lymph # Randall # Baso # Seg Neutrophils % Seg Neuts % (Manual) Lymphocytes % (Manual) Monocytes % (Manual) Seg Neutrophils # Seg Neutrophils # Man Lymphocytes # (Manual) Monocytes # (Manual) Basophils # (Manual) Percent Retic PT INR APTT Heparin Anti-Xa Level POC ABG pH POC ABG pCO2 POC ABG pO2 Sodium Potassium Chloride Carbon Dioxide BUN Creatinine Glucose POC Glucose 124 H 241 H Calcium Phosphorus Iron TIBC Lactate Dehydrogenase Total Creatine Kinase NT-Pro-B Natriuret Pep Total Protein Albumin Byinv-7-Sqbsehnan Wdxjw-5-Ftgtoowvr Beta Globulins PEP Interpretation Cholesterol LDL Cholesterol Direct Vitamin B12 Urine Creatinine Crossmatch 03/27/16 03/27/16 03/28/16 16:39 22:03 03:29 WBC RBC Hgb Hct MCV MCH MCHC RDW Plt Count Lymph % (Auto) Randall % (Auto) Lymph # Randall # Baso # Seg Neutrophils % Seg Neuts % (Manual) Lymphocytes % (Manual) Monocytes % (Manual) Seg Neutrophils # Seg Neutrophils # Man Lymphocytes # (Manual) Monocytes # (Manual) Basophils # (Manual) Percent Retic PT INR APTT Heparin Anti-Xa Level POC ABG pH POC ABG pCO2 POC ABG pO2 Sodium Potassium Chloride Carbon Dioxide BUN Creatinine Glucose POC Glucose 266 H 167 H 241 H Calcium Phosphorus Iron TIBC Lactate Dehydrogenase Total Creatine Kinase NT-Pro-B Natriuret Pep Total Protein Albumin Eotbm-4-Ptkbbgvqa Zkdik-8-Hwekckhsk Beta Globulins PEP Interpretation Cholesterol LDL Cholesterol Direct Vitamin B12 Urine Creatinine Crossmatch 03/28/16 03/28/16 03/28/16 05:00 05:00 05:00 WBC RBC Hgb Hct MCV 83 L MCH 27 L MCHC RDW Plt Count 106 L Lymph % (Auto) Randall % (Auto) 10.1 H Lymph # Randall # 1.0 H Baso # Seg Neutrophils % 75.1 H Seg Neuts % (Manual) Lymphocytes % (Manual) Monocytes % (Manual) Seg Neutrophils # Seg Neutrophils # Man Lymphocytes # (Manual) Monocytes # (Manual) Basophils # (Manual) Percent Retic PT INR APTT Heparin Anti-Xa Level POC ABG pH POC ABG pCO2 POC ABG pO2 Sodium 147 H D Potassium 3.1 L D Chloride 112.3 H Carbon Dioxide 21 L BUN Creatinine Glucose 208 H POC Glucose Calcium 7.0 L Phosphorus 2.2 L Iron TIBC Lactate Dehydrogenase Total Creatine Kinase NT-Pro-B Natriuret Pep Total Protein Albumin Ymsfv-3-Oqcvrrtst Fpioe-4-Wmkkiiakf Beta Globulins PEP Interpretation Cholesterol LDL Cholesterol Direct Vitamin B12 Urine Creatinine Crossmatch 03/28/16 03/28/16 03/28/16 05:14 08:41 10:56 WBC RBC Hgb Hct MCV MCH MCHC RDW Plt Count Lymph % (Auto) Randall % (Auto) Lymph # Randall # Baso # Seg Neutrophils % Seg Neuts % (Manual) Lymphocytes % (Manual) Monocytes % (Manual) Seg Neutrophils # Seg Neutrophils # Man Lymphocytes # (Manual) Monocytes # (Manual) Basophils # (Manual) Percent Retic PT INR APTT Heparin Anti-Xa Level POC ABG pH 7.457 H POC ABG pCO2 29.7 L 27.7 L POC ABG pO2 Sodium Potassium Chloride Carbon Dioxide BUN Creatinine Glucose POC Glucose 228 H Calcium Phosphorus Iron TIBC Lactate Dehydrogenase Total Creatine Kinase NT-Pro-B Natriuret Pep Total Protein Albumin Dkaeb-4-Uzmgerljq Fvbzk-7-Fslhrdjvz Beta Globulins PEP Interpretation Cholesterol LDL Cholesterol Direct Vitamin B12 Urine Creatinine Crossmatch 03/28/16 03/28/16 03/28/16 11:37 13:29 16:22 WBC RBC Hgb Hct MCV MCH MCHC RDW Plt Count Lymph % (Auto) Randall % (Auto) Lymph # Randall # Baso # Seg Neutrophils % Seg Neuts % (Manual) Lymphocytes % (Manual) Monocytes % (Manual) Seg Neutrophils # Seg Neutrophils # Man Lymphocytes # (Manual) Monocytes # (Manual) Basophils # (Manual) Percent Retic PT INR APTT Heparin Anti-Xa Level POC ABG pH POC ABG pCO2 POC ABG pO2 Sodium Potassium Chloride Carbon Dioxide BUN Creatinine Glucose POC Glucose 226 H 200 H Calcium Phosphorus Iron TIBC Lactate Dehydrogenase Total Creatine Kinase 356 H NT-Pro-B Natriuret Pep Total Protein Albumin Wxjit-2-Kqirhkghv Evtal-2-Rfhucmmhs Beta Globulins PEP Interpretation Cholesterol LDL Cholesterol Direct Vitamin B12 Urine Creatinine Crossmatch 03/28/16 03/29/16 03/29/16 21:48 04:50 04:50 WBC RBC Hgb 11.5 L Hct 35.3 L MCV 81 L MCH 26 L MCHC RDW Plt Count 97 L Lymph % (Auto) Randall % (Auto) 11.7 H Lymph # Randall # 1.1 H Baso # Seg Neutrophils % Seg Neuts % (Manual) Lymphocytes % (Manual) Monocytes % (Manual) Seg Neutrophils # Seg Neutrophils # Man Lymphocytes # (Manual) Monocytes # (Manual) Basophils # (Manual) Percent Retic PT INR APTT Heparin Anti-Xa Level POC ABG pH POC ABG pCO2 POC ABG pO2 Sodium 136 L D Potassium 3.3 L Chloride Carbon Dioxide 20 L BUN Creatinine Glucose 386 H POC Glucose 188 H Calcium 6.8 L Phosphorus 1.6 L D Iron TIBC Lactate Dehydrogenase Total Creatine Kinase NT-Pro-B Natriuret Pep Total Protein Albumin Duuyc-7-Ecvuolmie Bgdgm-7-Gswdhmfru Beta Globulins PEP Interpretation Cholesterol LDL Cholesterol Direct Vitamin B12 Urine Creatinine Crossmatch 03/29/16 03/29/16 03/29/16 08:10 11:12 16:09 WBC RBC Hgb Hct MCV MCH MCHC RDW Plt Count Lymph % (Auto) Randall % (Auto) Lymph # Randall # Baso # Seg Neutrophils % Seg Neuts % (Manual) Lymphocytes % (Manual) Monocytes % (Manual) Seg Neutrophils # Seg Neutrophils # Man Lymphocytes # (Manual) Monocytes # (Manual) Basophils # (Manual) Percent Retic PT INR APTT Heparin Anti-Xa Level POC ABG pH POC ABG pCO2 POC ABG pO2 Sodium Potassium Chloride Carbon Dioxide BUN Creatinine Glucose POC Glucose 230 H 180 H 46 L Calcium Phosphorus Iron TIBC Lactate Dehydrogenase Total Creatine Kinase NT-Pro-B Natriuret Pep Total Protein Albumin Cizol-0-Kbfilemgg Avarc-8-Ogqdxairq Beta Globulins PEP Interpretation Cholesterol LDL Cholesterol Direct Vitamin B12 Urine Creatinine Crossmatch 03/29/16 03/29/16 03/30/16 16:12 18:15 02:53 WBC RBC Hgb Hct MCV MCH MCHC RDW Plt Count Lymph % (Auto) Randall % (Auto) Lymph # Randall # Baso # Seg Neutrophils % Seg Neuts % (Manual) Lymphocytes % (Manual) Monocytes % (Manual) Seg Neutrophils # Seg Neutrophils # Man Lymphocytes # (Manual) Monocytes # (Manual) Basophils # (Manual) Percent Retic PT INR APTT Heparin Anti-Xa Level POC ABG pH POC ABG pCO2 POC ABG pO2 Sodium Potassium Chloride Carbon Dioxide BUN Creatinine Glucose POC Glucose 52 L 118 H 130 H Calcium Phosphorus Iron TIBC Lactate Dehydrogenase Total Creatine Kinase NT-Pro-B Natriuret Pep Total Protein Albumin Gbpmw-6-Vtetpncxb Wokqs-1-Kvxuahefv Beta Globulins PEP Interpretation Cholesterol LDL Cholesterol Direct Vitamin B12 Urine Creatinine Crossmatch 03/30/16 03/30/16 03/30/16 04:00 04:00 05:29 WBC RBC Hgb Hct MCV 81 L MCH 26 L MCHC RDW Plt Count 116 L Lymph % (Auto) 10.8 L Randall % (Auto) 13.1 H Lymph # 1.0 L Randall # 1.3 H Baso # Seg Neutrophils % 74.2 H Seg Neuts % (Manual) Lymphocytes % (Manual) Monocytes % (Manual) Seg Neutrophils # Seg Neutrophils # Man Lymphocytes # (Manual) Monocytes # (Manual) Basophils # (Manual) Percent Retic PT INR APTT Heparin Anti-Xa Level POC ABG pH 7.522 H POC ABG pCO2 22.7 L POC ABG pO2 137 H Sodium 147 H D Potassium Chloride 115.5 H Carbon Dioxide 20 L BUN Creatinine Glucose 116 H POC Glucose Calcium 7.6 L Phosphorus 2.3 L D Iron TIBC Lactate Dehydrogenase Total Creatine Kinase NT-Pro-B Natriuret Pep Total Protein Albumin Ntmhf-5-Vdiervhfh Gdone-9-Vcykohdwx Beta Globulins PEP Interpretation Cholesterol LDL Cholesterol Direct Vitamin B12 Urine Creatinine Crossmatch 03/30/16 03/30/16 03/30/16 05:47 08:05 08:59 WBC RBC Hgb Hct MCV MCH MCHC RDW Plt Count Lymph % (Auto) Randall % (Auto) Lymph # Randall # Baso # Seg Neutrophils % Seg Neuts % (Manual) Lymphocytes % (Manual) Monocytes % (Manual) Seg Neutrophils # Seg Neutrophils # Man Lymphocytes # (Manual) Monocytes # (Manual) Basophils # (Manual) Percent Retic PT INR APTT Heparin Anti-Xa Level POC ABG pH POC ABG pCO2 26.2 L POC ABG pO2 115 H Sodium Potassium Chloride Carbon Dioxide BUN Creatinine Glucose POC Glucose 138 H 171 H Calcium Phosphorus Iron TIBC Lactate Dehydrogenase Total Creatine Kinase NT-Pro-B Natriuret Pep Total Protein Albumin Vnugx-5-Shhejpzjq Szxnj-7-Ujouefjri Beta Globulins PEP Interpretation Cholesterol LDL Cholesterol Direct Vitamin B12 Urine Creatinine Crossmatch 03/30/16 03/30/16 03/30/16 12:11 12:11 16:39 WBC RBC Hgb Hct MCV MCH MCHC RDW Plt Count Lymph % (Auto) Randall % (Auto) Lymph # Randall # Baso # Seg Neutrophils % Seg Neuts % (Manual) Lymphocytes % (Manual) Monocytes % (Manual) Seg Neutrophils # Seg Neutrophils # Man Lymphocytes # (Manual) Monocytes # (Manual) Basophils # (Manual) Percent Retic PT INR APTT Heparin Anti-Xa Level POC ABG pH 7.476 H POC ABG pCO2 29.0 L POC ABG pO2 Sodium Potassium Chloride Carbon Dioxide BUN Creatinine Glucose POC Glucose 142 H 59 L Calcium Phosphorus Iron TIBC Lactate Dehydrogenase Total Creatine Kinase NT-Pro-B Natriuret Pep Total Protein Albumin Oyxgx-7-Epmvhzmms Jiqoz-8-Usygtuoci Beta Globulins PEP Interpretation Cholesterol LDL Cholesterol Direct Vitamin B12 Urine Creatinine Crossmatch 03/30/16 03/30/16 03/31/16 18:41 21:59 05:02 WBC RBC Hgb Hct MCV MCH MCHC RDW Plt Count Lymph % (Auto) Randall % (Auto) Lymph # Randall # Baso # Seg Neutrophils % Seg Neuts % (Manual) Lymphocytes % (Manual) Monocytes % (Manual) Seg Neutrophils # Seg Neutrophils # Man Lymphocytes # (Manual) Monocytes # (Manual) Basophils # (Manual) Percent Retic PT INR APTT Heparin Anti-Xa Level POC ABG pH 7.519 H POC ABG pCO2 21.8 L POC ABG pO2 142 H Sodium Potassium Chloride Carbon Dioxide BUN Creatinine Glucose POC Glucose 145 H 154 H Calcium Phosphorus Iron TIBC Lactate Dehydrogenase Total Creatine Kinase NT-Pro-B Natriuret Pep Total Protein Albumin Taufv-1-Llpgosvwb Hrojg-1-Lubshbltt Beta Globulins PEP Interpretation Cholesterol LDL Cholesterol Direct Vitamin B12 Urine Creatinine Crossmatch 03/31/16 03/31/16 03/31/16 05:15 05:15 05:15 WBC 13.4 H RBC 5.21 H Hgb Hct MCV 81 L MCH 26 L MCHC RDW Plt Count Lymph % (Auto) 9.5 L Randall % (Auto) 14.0 H Lymph # Randall # 1.9 H Baso # Seg Neutrophils % 75.0 H Seg Neuts % (Manual) Lymphocytes % (Manual) Monocytes % (Manual) Seg Neutrophils # 10.1 H Seg Neutrophils # Man Lymphocytes # (Manual) Monocytes # (Manual) Basophils # (Manual) Percent Retic PT INR APTT Heparin Anti-Xa Level POC ABG pH POC ABG pCO2 POC ABG pO2 Sodium Potassium Chloride 108.5 H Carbon Dioxide 19 L BUN Creatinine Glucose 188 H POC Glucose Calcium Phosphorus Iron TIBC Lactate Dehydrogenase Total Creatine Kinase NT-Pro-B Natriuret Pep 1089 H Total Protein Albumin Leubx-3-Wjcvjztya Lsimq-0-Socqywcfe Beta Globulins PEP Interpretation Cholesterol LDL Cholesterol Direct Vitamin B12 Urine Creatinine Crossmatch 03/31/16 03/31/16 03/31/16 07:23 11:12 15:20 WBC RBC Hgb Hct MCV MCH MCHC RDW Plt Count Lymph % (Auto) Randall % (Auto) Lymph # Randall # Baso # Seg Neutrophils % Seg Neuts % (Manual) Lymphocytes % (Manual) Monocytes % (Manual) Seg Neutrophils # Seg Neutrophils # Man Lymphocytes # (Manual) Monocytes # (Manual) Basophils # (Manual) Percent Retic PT INR APTT Heparin Anti-Xa Level POC ABG pH POC ABG pCO2 POC ABG pO2 Sodium Potassium Chloride Carbon Dioxide BUN Creatinine Glucose POC Glucose 233 H 228 H 208 H Calcium Phosphorus Iron TIBC Lactate Dehydrogenase Total Creatine Kinase NT-Pro-B Natriuret Pep Total Protein Albumin Dhqds-2-Rjlfgybov Lcimn-5-Steakqqox Beta Globulins PEP Interpretation Cholesterol LDL Cholesterol Direct Vitamin B12 Urine Creatinine Crossmatch 03/31/16 04/01/16 04/01/16 21:27 04:41 05:35 WBC 12.1 H RBC Hgb Hct MCV 81 L MCH 26 L MCHC RDW Plt Count Lymph % (Auto) 8.5 L Randall % (Auto) 14.0 H Lymph # 1.0 L Randall # 1.7 H Baso # Seg Neutrophils % 76.2 H Seg Neuts % (Manual) Lymphocytes % (Manual) Monocytes % (Manual) Seg Neutrophils # 9.2 H Seg Neutrophils # Man Lymphocytes # (Manual) Monocytes # (Manual) Basophils # (Manual) Percent Retic PT INR APTT Heparin Anti-Xa Level POC ABG pH 7.455 H POC ABG pCO2 31.0 L POC ABG pO2 Sodium Potassium Chloride Carbon Dioxide BUN Creatinine Glucose POC Glucose 162 H Calcium Phosphorus Iron TIBC Lactate Dehydrogenase Total Creatine Kinase NT-Pro-B Natriuret Pep Total Protein Albumin Bysqd-5-Bmontocag Xvorc-1-Ofrfsdkei Beta Globulins PEP Interpretation Cholesterol LDL Cholesterol Direct Vitamin B12 Urine Creatinine Crossmatch 04/01/16 04/01/16 04/01/16 05:35 08:44 12:49 WBC RBC Hgb Hct MCV MCH MCHC RDW Plt Count Lymph % (Auto) Randall % (Auto) Lymph # Randall # Baso # Seg Neutrophils % Seg Neuts % (Manual) Lymphocytes % (Manual) Monocytes % (Manual) Seg Neutrophils # Seg Neutrophils # Man Lymphocytes # (Manual) Monocytes # (Manual) Basophils # (Manual) Percent Retic PT INR APTT Heparin Anti-Xa Level POC ABG pH POC ABG pCO2 POC ABG pO2 Sodium Potassium Chloride Carbon Dioxide BUN Creatinine Glucose 256 H POC Glucose 257 H 279 H Calcium 8.0 L Phosphorus Iron TIBC Lactate Dehydrogenase Total Creatine Kinase NT-Pro-B Natriuret Pep 1205 H Total Protein Albumin Romov-3-Emrzsgjoo Hnmbk-1-Vpbcgbaay Beta Globulins PEP Interpretation Cholesterol LDL Cholesterol Direct Vitamin B12 Urine Creatinine Crossmatch 04/01/16 04/02/16 04/02/16 18:12 00:42 04:17 WBC RBC Hgb Hct MCV MCH MCHC RDW Plt Count Lymph % (Auto) Randall % (Auto) Lymph # Randall # Baso # Seg Neutrophils % Seg Neuts % (Manual) Lymphocytes % (Manual) Monocytes % (Manual) Seg Neutrophils # Seg Neutrophils # Man Lymphocytes # (Manual) Monocytes # (Manual) Basophils # (Manual) Percent Retic PT INR APTT Heparin Anti-Xa Level POC ABG pH 7.582 H POC ABG pCO2 26.8 L POC ABG pO2 Sodium Potassium Chloride Carbon Dioxide BUN Creatinine Glucose POC Glucose 168 H 282 H Calcium Phosphorus Iron TIBC Lactate Dehydrogenase Total Creatine Kinase NT-Pro-B Natriuret Pep Total Protein Albumin Gywdn-3-Vlycymfwj Jjbgc-4-Dsqoaacwl Beta Globulins PEP Interpretation Cholesterol LDL Cholesterol Direct Vitamin B12 Urine Creatinine Crossmatch 04/02/16 04/02/16 04/02/16 05:00 05:00 06:27 WBC 12.4 H RBC Hgb Hct MCV 81 L MCH 26 L MCHC RDW Plt Count Lymph % (Auto) 6.4 L Randall % (Auto) 13.3 H Lymph # 0.8 L Randall # 1.7 H Baso # Seg Neutrophils % 79.4 H Seg Neuts % (Manual) Lymphocytes % (Manual) Monocytes % (Manual) Seg Neutrophils # 9.9 H Seg Neutrophils # Man Lymphocytes # (Manual) Monocytes # (Manual) Basophils # (Manual) Percent Retic PT INR APTT Heparin Anti-Xa Level POC ABG pH POC ABG pCO2 POC ABG pO2 Sodium 146 H Potassium Chloride Carbon Dioxide BUN Creatinine Glucose 334 H POC Glucose 317 H Calcium 8.0 L Phosphorus Iron TIBC Lactate Dehydrogenase Total Creatine Kinase NT-Pro-B Natriuret Pep Total Protein Albumin Jdcmt-3-Ufcmhbpmw Ltoqh-9-Hfzlborka Beta Globulins PEP Interpretation Cholesterol LDL Cholesterol Direct Vitamin B12 Urine Creatinine Crossmatch 04/02/16 04/02/16 04/02/16 11:51 13:10 17:24 WBC RBC Hgb Hct MCV MCH MCHC RDW Plt Count Lymph % (Auto) Randall % (Auto) Lymph # Randall # Baso # Seg Neutrophils % Seg Neuts % (Manual) Lymphocytes % (Manual) Monocytes % (Manual) Seg Neutrophils # Seg Neutrophils # Man Lymphocytes # (Manual) Monocytes # (Manual) Basophils # (Manual) Percent Retic PT INR APTT Heparin Anti-Xa Level POC ABG pH 7.518 H POC ABG pCO2 POC ABG pO2 Sodium Potassium Chloride Carbon Dioxide BUN Creatinine Glucose POC Glucose 278 H 195 H Calcium Phosphorus Iron TIBC Lactate Dehydrogenase Total Creatine Kinase NT-Pro-B Natriuret Pep Total Protein Albumin Prwwa-8-Nrwfpyosh Cpieu-6-Prfpajhsv Beta Globulins PEP Interpretation Cholesterol LDL Cholesterol Direct Vitamin B12 Urine Creatinine Crossmatch 04/03/16 04/03/16 04/03/16 00:18 04:10 04:10 WBC 14.3 H RBC Hgb Hct MCV 81 L MCH 26 L MCHC RDW Plt Count Lymph % (Auto) 9.0 L Randall % (Auto) 10.7 H Lymph # Randall # 1.5 H Baso # 0.2 H Seg Neutrophils % 78.5 H Seg Neuts % (Manual) Lymphocytes % (Manual) Monocytes % (Manual) Seg Neutrophils # 11.3 H Seg Neutrophils # Man Lymphocytes # (Manual) Monocytes # (Manual) Basophils # (Manual) Percent Retic PT INR APTT Heparin Anti-Xa Level POC ABG pH POC ABG pCO2 POC ABG pO2 Sodium 148 H Potassium Chloride 108.1 H Carbon Dioxide BUN 21 H Creatinine Glucose 227 H POC Glucose 144 H Calcium 8.2 L Phosphorus Iron TIBC Lactate Dehydrogenase Total Creatine Kinase NT-Pro-B Natriuret Pep Total Protein Albumin Uwtzv-8-Jitpdrgkg Jveuz-1-Pgsjvlftr Beta Globulins PEP Interpretation Cholesterol LDL Cholesterol Direct Vitamin B12 Urine Creatinine Crossmatch 04/03/16 04/03/16 04/04/16 11:14 17:10 04:00 WBC 14.5 H RBC Hgb Hct MCV 81 L MCH 26 L MCHC RDW Plt Count Lymph % (Auto) 7.2 L Randall % (Auto) 7.6 H Lymph # 1.0 L Randall # 1.1 H Baso # Seg Neutrophils % 84.5 H Seg Neuts % (Manual) Lymphocytes % (Manual) Monocytes % (Manual) Seg Neutrophils # 12.3 H Seg Neutrophils # Man Lymphocytes # (Manual) Monocytes # (Manual) Basophils # (Manual) Percent Retic PT INR APTT Heparin Anti-Xa Level POC ABG pH POC ABG pCO2 POC ABG pO2 Sodium Potassium Chloride Carbon Dioxide BUN Creatinine Glucose POC Glucose 267 H 212 H Calcium Phosphorus Iron TIBC Lactate Dehydrogenase Total Creatine Kinase NT-Pro-B Natriuret Pep Total Protein Albumin Imwby-3-Wsbjfsazs Jeejp-5-Gabpyhywx Beta Globulins PEP Interpretation Cholesterol LDL Cholesterol Direct Vitamin B12 Urine Creatinine Crossmatch 04/04/16 04/04/16 04/04/16 05:00 09:55 09:55 WBC RBC Hgb 11.5 L Hct MCV MCH MCHC RDW Plt Count Lymph % (Auto) Randall % (Auto) Lymph # Randall # Baso # Seg Neutrophils % Seg Neuts % (Manual) Lymphocytes % (Manual) Monocytes % (Manual) Seg Neutrophils # Seg Neutrophils # Man Lymphocytes # (Manual) Monocytes # (Manual) Basophils # (Manual) Percent Retic PT INR APTT 42.1 H Heparin Anti-Xa Level POC ABG pH POC ABG pCO2 POC ABG pO2 Sodium 146 H Potassium Chloride Carbon Dioxide BUN 22 H Creatinine Glucose 128 H POC Glucose Calcium Phosphorus Iron TIBC Lactate Dehydrogenase Total Creatine Kinase NT-Pro-B Natriuret Pep Total Protein Albumin Essyn-5-Cffrbklsp Urqjb-5-Udsjbztyt Beta Globulins PEP Interpretation Cholesterol LDL Cholesterol Direct Vitamin B12 Urine Creatinine Crossmatch 04/04/16 04/04/16 04/04/16 11:45 17:49 17:55 WBC RBC Hgb Hct MCV MCH MCHC RDW Plt Count Lymph % (Auto) Randall % (Auto) Lymph # Randall # Baso # Seg Neutrophils % Seg Neuts % (Manual) Lymphocytes % (Manual) Monocytes % (Manual) Seg Neutrophils # Seg Neutrophils # Man Lymphocytes # (Manual) Monocytes # (Manual) Basophils # (Manual) Percent Retic PT INR APTT Heparin Anti-Xa Level 1.19 H POC ABG pH POC ABG pCO2 POC ABG pO2 Sodium Potassium Chloride Carbon Dioxide BUN Creatinine Glucose POC Glucose 231 H 186 H Calcium Phosphorus Iron TIBC Lactate Dehydrogenase Total Creatine Kinase NT-Pro-B Natriuret Pep Total Protein Albumin Wxkvw-9-Zzfwcjlyg Vzmqu-9-Qkzuaxnya Beta Globulins PEP Interpretation Cholesterol LDL Cholesterol Direct Vitamin B12 Urine Creatinine Crossmatch 04/05/16 04/05/16 04/05/16 00:35 05:32 05:42 WBC RBC Hgb Hct MCV MCH MCHC RDW Plt Count Lymph % (Auto) Randall % (Auto) Lymph # Randall # Baso # Seg Neutrophils % Seg Neuts % (Manual) Lymphocytes % (Manual) Monocytes % (Manual) Seg Neutrophils # Seg Neutrophils # Man Lymphocytes # (Manual) Monocytes # (Manual) Basophils # (Manual) Percent Retic PT INR APTT Heparin Anti-Xa Level POC ABG pH 7.491 H POC ABG pCO2 POC ABG pO2 Sodium Potassium Chloride Carbon Dioxide BUN Creatinine Glucose POC Glucose 192 H 242 H Calcium Phosphorus Iron TIBC Lactate Dehydrogenase Total Creatine Kinase NT-Pro-B Natriuret Pep Total Protein Albumin Bejen-9-Dztekbptw Yyadw-9-Gevkvmtac Beta Globulins PEP Interpretation Cholesterol LDL Cholesterol Direct Vitamin B12 Urine Creatinine Crossmatch 04/05/16 04/05/16 04/05/16 06:20 06:20 12:19 WBC 13.9 H RBC Hgb 11.6 L Hct MCV 81 L MCH 26 L MCHC RDW Plt Count Lymph % (Auto) 9.6 L Randall % (Auto) 8.7 H Lymph # Randall # 1.2 H Baso # Seg Neutrophils % 80.9 H Seg Neuts % (Manual) Lymphocytes % (Manual) Monocytes % (Manual) Seg Neutrophils # 11.3 H Seg Neutrophils # Man Lymphocytes # (Manual) Monocytes # (Manual) Basophils # (Manual) Percent Retic PT INR APTT Heparin Anti-Xa Level POC ABG pH POC ABG pCO2 POC ABG pO2 Sodium 148 H Potassium Chloride Carbon Dioxide BUN 23 H Creatinine Glucose 242 H POC Glucose 187 H Calcium Phosphorus Iron TIBC Lactate Dehydrogenase Total Creatine Kinase NT-Pro-B Natriuret Pep Total Protein Albumin Xnqng-1-Mzznkwqqd Bxbbx-5-Rifyjamtl Beta Globulins PEP Interpretation Cholesterol LDL Cholesterol Direct Vitamin B12 Urine Creatinine Crossmatch 04/05/16 04/05/16 04/06/16 17:10 23:45 05:23 WBC 13.0 H RBC Hgb Hct MCV 82 L MCH 26 L MCHC 31 L RDW Plt Count Lymph % (Auto) 6.7 L Randall % (Auto) 8.3 H Lymph # 0.9 L Randall # 1.1 H Baso # Seg Neutrophils % 84.6 H Seg Neuts % (Manual) Lymphocytes % (Manual) Monocytes % (Manual) Seg Neutrophils # 11.0 H Seg Neutrophils # Man Lymphocytes # (Manual) Monocytes # (Manual) Basophils # (Manual) Percent Retic PT INR APTT Heparin Anti-Xa Level POC ABG pH POC ABG pCO2 POC ABG pO2 Sodium Potassium Chloride Carbon Dioxide BUN Creatinine Glucose POC Glucose 169 H 202 H Calcium Phosphorus Iron TIBC Lactate Dehydrogenase Total Creatine Kinase NT-Pro-B Natriuret Pep Total Protein Albumin Bpqgp-9-Khytvaogx Vayqe-3-Lmedbocsi Beta Globulins PEP Interpretation Cholesterol LDL Cholesterol Direct Vitamin B12 Urine Creatinine Crossmatch 04/06/16 04/06/16 04/06/16 05:23 05:23 06:11 WBC RBC Hgb Hct MCV MCH MCHC RDW Plt Count Lymph % (Auto) Randall % (Auto) Lymph # Randall # Baso # Seg Neutrophils % Seg Neuts % (Manual) Lymphocytes % (Manual) Monocytes % (Manual) Seg Neutrophils # Seg Neutrophils # Man Lymphocytes # (Manual) Monocytes # (Manual) Basophils # (Manual) Percent Retic PT INR APTT Heparin Anti-Xa Level 0.21 L POC ABG pH POC ABG pCO2 POC ABG pO2 Sodium 153 H Potassium Chloride 111.3 H Carbon Dioxide BUN 22 H Creatinine Glucose 62 L POC Glucose 56 L Calcium Phosphorus Iron TIBC Lactate Dehydrogenase Total Creatine Kinase NT-Pro-B Natriuret Pep Total Protein Albumin Rjkmd-5-Sgnxyknud Laxdx-6-Wypmnmhab Beta Globulins PEP Interpretation Cholesterol LDL Cholesterol Direct Vitamin B12 Urine Creatinine Crossmatch 04/06/16 04/06/16 04/06/16 06:52 11:36 14:58 WBC RBC Hgb Hct MCV MCH MCHC RDW Plt Count Lymph % (Auto) Randall % (Auto) Lymph # Randall # Baso # Seg Neutrophils % Seg Neuts % (Manual) Lymphocytes % (Manual) Monocytes % (Manual) Seg Neutrophils # Seg Neutrophils # Man Lymphocytes # (Manual) Monocytes # (Manual) Basophils # (Manual) Percent Retic PT INR APTT Heparin Anti-Xa Level POC ABG pH POC ABG pCO2 POC ABG pO2 Sodium Potassium Chloride Carbon Dioxide BUN Creatinine Glucose POC Glucose 206 H 139 H 147 H Calcium Phosphorus Iron TIBC Lactate Dehydrogenase Total Creatine Kinase NT-Pro-B Natriuret Pep Total Protein Albumin Tgfnl-5-Rhgmaiizq Nbtnv-2-Dwrhvmlqr Beta Globulins PEP Interpretation Cholesterol LDL Cholesterol Direct Vitamin B12 Urine Creatinine Crossmatch 04/06/16 04/06/16 04/06/16 16:03 21:18 23:53 WBC RBC Hgb Hct MCV MCH MCHC RDW Plt Count Lymph % (Auto) Randall % (Auto) Lymph # Randall # Baso # Seg Neutrophils % Seg Neuts % (Manual) Lymphocytes % (Manual) Monocytes % (Manual) Seg Neutrophils # Seg Neutrophils # Man Lymphocytes # (Manual) Monocytes # (Manual) Basophils # (Manual) Percent Retic PT INR APTT Heparin Anti-Xa Level POC ABG pH POC ABG pCO2 POC ABG pO2 Sodium Potassium Chloride Carbon Dioxide BUN Creatinine Glucose POC Glucose 154 H 293 H 301 H Calcium Phosphorus Iron TIBC Lactate Dehydrogenase Total Creatine Kinase NT-Pro-B Natriuret Pep Total Protein Albumin Blhax-1-Uwksfegpf Dpavh-8-Qeimnzrei Beta Globulins PEP Interpretation Cholesterol LDL Cholesterol Direct Vitamin B12 Urine Creatinine Crossmatch 04/07/16 04/07/16 04/07/16 02:30 05:11 05:11 WBC 12.5 H RBC Hgb 11.5 L Hct MCV 82 L MCH 26 L MCHC 31 L RDW Plt Count Lymph % (Auto) Randall % (Auto) Lymph # Randall # Baso # Seg Neutrophils % Seg Neuts % (Manual) Lymphocytes % (Manual) Monocytes % (Manual) Seg Neutrophils # Seg Neutrophils # Man Lymphocytes # (Manual) Monocytes # (Manual) Basophils # (Manual) Percent Retic PT INR APTT Heparin Anti-Xa Level 0.11 L POC ABG pH POC ABG pCO2 POC ABG pO2 Sodium 150 H Potassium Chloride 109.5 H Carbon Dioxide BUN 28 H Creatinine Glucose 264 H POC Glucose Calcium Phosphorus Iron TIBC Lactate Dehydrogenase Total Creatine Kinase NT-Pro-B Natriuret Pep Total Protein Albumin Gvkbl-5-Zxshqumpu Evxyl-6-Qcfvizvjh Beta Globulins PEP Interpretation Cholesterol LDL Cholesterol Direct Vitamin B12 Urine Creatinine Crossmatch 04/07/16 04/07/16 04/07/16 06:46 10:18 11:50 WBC RBC Hgb Hct MCV MCH MCHC RDW Plt Count Lymph % (Auto) Randall % (Auto) Lymph # Randall # Baso # Seg Neutrophils % Seg Neuts % (Manual) Lymphocytes % (Manual) Monocytes % (Manual) Seg Neutrophils # Seg Neutrophils # Man Lymphocytes # (Manual) Monocytes # (Manual) Basophils # (Manual) Percent Retic PT 15.1 H INR 1.20 H APTT Heparin Anti-Xa Level POC ABG pH POC ABG pCO2 POC ABG pO2 Sodium Potassium Chloride Carbon Dioxide BUN Creatinine Glucose POC Glucose 259 H 288 H Calcium Phosphorus Iron TIBC Lactate Dehydrogenase Total Creatine Kinase NT-Pro-B Natriuret Pep Total Protein Albumin Xzwqc-5-Ffrnktwea Ntpej-0-Zvdjvtzdu Beta Globulins PEP Interpretation Cholesterol LDL Cholesterol Direct Vitamin B12 Urine Creatinine Crossmatch 04/07/16 04/08/16 04/08/16 17:58 01:25 06:49 WBC RBC Hgb Hct MCV MCH MCHC RDW Plt Count Lymph % (Auto) Randall % (Auto) Lymph # Randall # Baso # Seg Neutrophils % Seg Neuts % (Manual) Lymphocytes % (Manual) Monocytes % (Manual) Seg Neutrophils # Seg Neutrophils # Man Lymphocytes # (Manual) Monocytes # (Manual) Basophils # (Manual) Percent Retic PT INR APTT Heparin Anti-Xa Level POC ABG pH POC ABG pCO2 POC ABG pO2 Sodium 156 H Potassium Chloride 114.7 H Carbon Dioxide BUN 33 H Creatinine Glucose 169 H POC Glucose 330 H 146 H Calcium Phosphorus Iron TIBC Lactate Dehydrogenase Total Creatine Kinase NT-Pro-B Natriuret Pep Total Protein Albumin Prlva-0-Xlocgtbph Unpas-0-Obcnqrmnk Beta Globulins PEP Interpretation Cholesterol LDL Cholesterol Direct Vitamin B12 Urine Creatinine Crossmatch 04/08/16 04/08/16 04/08/16 07:34 10:28 10:28 WBC RBC Hgb Hct MCV MCH MCHC RDW Plt Count Lymph % (Auto) Randall % (Auto) Lymph # Randall # Baso # Seg Neutrophils % Seg Neuts % (Manual) Lymphocytes % (Manual) Monocytes % (Manual) Seg Neutrophils # Seg Neutrophils # Man Lymphocytes # (Manual) Monocytes # (Manual) Basophils # (Manual) Percent Retic PT 15.5 H INR 1.24 H APTT Heparin Anti-Xa Level 0.24 L POC ABG pH POC ABG pCO2 POC ABG pO2 Sodium Potassium Chloride Carbon Dioxide BUN Creatinine Glucose POC Glucose 232 H Calcium Phosphorus Iron TIBC Lactate Dehydrogenase Total Creatine Kinase NT-Pro-B Natriuret Pep Total Protein Albumin Llwpn-9-Jjlanpovm Hleox-2-Suwezdraa Beta Globulins PEP Interpretation Cholesterol LDL Cholesterol Direct Vitamin B12 Urine Creatinine Crossmatch 04/08/16 04/08/16 04/09/16 11:36 15:38 00:01 WBC RBC Hgb Hct MCV MCH MCHC RDW Plt Count Lymph % (Auto) Randall % (Auto) Lymph # Randall # Baso # Seg Neutrophils % Seg Neuts % (Manual) Lymphocytes % (Manual) Monocytes % (Manual) Seg Neutrophils # Seg Neutrophils # Man Lymphocytes # (Manual) Monocytes # (Manual) Basophils # (Manual) Percent Retic PT INR APTT Heparin Anti-Xa Level POC ABG pH POC ABG pCO2 POC ABG pO2 Sodium Potassium Chloride Carbon Dioxide BUN Creatinine Glucose POC Glucose 193 H 163 H 180 H Calcium Phosphorus Iron TIBC Lactate Dehydrogenase Total Creatine Kinase NT-Pro-B Natriuret Pep Total Protein Albumin Yians-1-Yuzjjjemn Tasss-5-Uvcrgvxmg Beta Globulins PEP Interpretation Cholesterol LDL Cholesterol Direct Vitamin B12 Urine Creatinine Crossmatch 04/09/16 04/09/16 04/09/16 06:17 06:42 06:42 WBC RBC Hgb Hct MCV MCH MCHC RDW Plt Count Lymph % (Auto) Randall % (Auto) Lymph # Randall # Baso # Seg Neutrophils % Seg Neuts % (Manual) Lymphocytes % (Manual) Monocytes % (Manual) Seg Neutrophils # Seg Neutrophils # Man Lymphocytes # (Manual) Monocytes # (Manual) Basophils # (Manual) Percent Retic PT 17.4 H INR 1.43 H APTT Heparin Anti-Xa Level POC ABG pH POC ABG pCO2 POC ABG pO2 Sodium 153 H Potassium Chloride 113.2 H Carbon Dioxide BUN 29 H Creatinine Glucose 301 H POC Glucose 249 H Calcium 8.3 L Phosphorus Iron TIBC Lactate Dehydrogenase Total Creatine Kinase NT-Pro-B Natriuret Pep Total Protein Albumin Pkgoq-9-Hrucmpwqe Llewt-5-Hsrmidzlj Beta Globulins PEP Interpretation Cholesterol LDL Cholesterol Direct Vitamin B12 Urine Creatinine Crossmatch 04/09/16 04/09/16 04/09/16 07:37 11:26 15:45 WBC RBC Hgb Hct MCV MCH MCHC RDW Plt Count Lymph % (Auto) Randall % (Auto) Lymph # Randall # Baso # Seg Neutrophils % Seg Neuts % (Manual) Lymphocytes % (Manual) Monocytes % (Manual) Seg Neutrophils # Seg Neutrophils # Man Lymphocytes # (Manual) Monocytes # (Manual) Basophils # (Manual) Percent Retic PT INR APTT Heparin Anti-Xa Level POC ABG pH POC ABG pCO2 POC ABG pO2 Sodium Potassium Chloride Carbon Dioxide BUN Creatinine Glucose POC Glucose 283 H 306 H 354 H Calcium Phosphorus Iron TIBC Lactate Dehydrogenase Total Creatine Kinase NT-Pro-B Natriuret Pep Total Protein Albumin Prcxr-3-Oakntiuzp Bvfsg-5-Jtgdvbzkb Beta Globulins PEP Interpretation Cholesterol LDL Cholesterol Direct Vitamin B12 Urine Creatinine Crossmatch 04/10/16 04/10/16 04/10/16 00:53 07:15 07:34 WBC RBC Hgb 11.3 L Hct MCV MCH MCHC RDW Plt Count Lymph % (Auto) Randall % (Auto) Lymph # Randall # Baso # Seg Neutrophils % Seg Neuts % (Manual) Lymphocytes % (Manual) Monocytes % (Manual) Seg Neutrophils # Seg Neutrophils # Man Lymphocytes # (Manual) Monocytes # (Manual) Basophils # (Manual) Percent Retic PT INR APTT Heparin Anti-Xa Level POC ABG pH POC ABG pCO2 POC ABG pO2 Sodium Potassium Chloride Carbon Dioxide BUN Creatinine Glucose POC Glucose 323 H 311 H Calcium Phosphorus Iron TIBC Lactate Dehydrogenase Total Creatine Kinase NT-Pro-B Natriuret Pep Total Protein Albumin Wuqqg-8-Xtsuufueh Ytuct-3-Zfjjdyaps Beta Globulins PEP Interpretation Cholesterol LDL Cholesterol Direct Vitamin B12 Urine Creatinine Crossmatch 04/10/16 04/10/16 04/10/16 07:34 07:34 11:25 WBC RBC Hgb Hct MCV MCH MCHC RDW Plt Count Lymph % (Auto) Randall % (Auto) Lymph # Randall # Baso # Seg Neutrophils % Seg Neuts % (Manual) Lymphocytes % (Manual) Monocytes % (Manual) Seg Neutrophils # Seg Neutrophils # Man Lymphocytes # (Manual) Monocytes # (Manual) Basophils # (Manual) Percent Retic PT 17.3 H INR 1.42 H APTT Heparin Anti-Xa Level POC ABG pH POC ABG pCO2 POC ABG pO2 Sodium 158 H Potassium Chloride 118.6 H Carbon Dioxide BUN 30 H Creatinine Glucose 330 H POC Glucose 335 H Calcium 8.3 L Phosphorus Iron TIBC Lactate Dehydrogenase Total Creatine Kinase NT-Pro-B Natriuret Pep Total Protein Albumin Dxvcd-0-Jkwznmrjr Bztdp-0-Pwqrlxqkq Beta Globulins PEP Interpretation Cholesterol LDL Cholesterol Direct Vitamin B12 Urine Creatinine Crossmatch 04/10/16 04/11/16 04/11/16 16:21 00:29 07:47 WBC RBC Hgb Hct MCV MCH MCHC RDW Plt Count Lymph % (Auto) Randall % (Auto) Lymph # Randall # Baso # Seg Neutrophils % Seg Neuts % (Manual) Lymphocytes % (Manual) Monocytes % (Manual) Seg Neutrophils # Seg Neutrophils # Man Lymphocytes # (Manual) Monocytes # (Manual) Basophils # (Manual) Percent Retic PT 18.4 H INR 1.53 H APTT Heparin Anti-Xa Level POC ABG pH POC ABG pCO2 POC ABG pO2 Sodium Potassium Chloride Carbon Dioxide BUN Creatinine Glucose POC Glucose 230 H 162 H Calcium Phosphorus Iron TIBC Lactate Dehydrogenase Total Creatine Kinase NT-Pro-B Natriuret Pep Total Protein Albumin Vnxme-3-Mhmvnwapx Yvmic-5-Eafmktqxf Beta Globulins PEP Interpretation Cholesterol LDL Cholesterol Direct Vitamin B12 Urine Creatinine Crossmatch 04/11/16 04/11/16 04/12/16 07:47 11:22 04:54 WBC RBC Hgb 11.0 L Hct 35.0 L MCV MCH MCHC RDW Plt Count Lymph % (Auto) Randall % (Auto) Lymph # Randall # Baso # Seg Neutrophils % Seg Neuts % (Manual) Lymphocytes % (Manual) Monocytes % (Manual) Seg Neutrophils # Seg Neutrophils # Man Lymphocytes # (Manual) Monocytes # (Manual) Basophils # (Manual) Percent Retic PT INR APTT Heparin Anti-Xa Level POC ABG pH POC ABG pCO2 POC ABG pO2 Sodium 155 H Potassium Chloride 114.5 H Carbon Dioxide BUN 23 H Creatinine Glucose 157 H POC Glucose 229 H Calcium Phosphorus Iron TIBC Lactate Dehydrogenase Total Creatine Kinase NT-Pro-B Natriuret Pep Total Protein Albumin Crocp-8-Kumkahprp Bjqjy-5-Vwqkxrfja Beta Globulins PEP Interpretation Cholesterol LDL Cholesterol Direct Vitamin B12 Urine Creatinine Crossmatch 04/12/16 04/12/16 04/12/16 04:54 04:54 05:57 WBC RBC Hgb Hct MCV MCH MCHC RDW Plt Count Lymph % (Auto) Randall % (Auto) Lymph # Randall # Baso # Seg Neutrophils % Seg Neuts % (Manual) Lymphocytes % (Manual) Monocytes % (Manual) Seg Neutrophils # Seg Neutrophils # Man Lymphocytes # (Manual) Monocytes # (Manual) Basophils # (Manual) Percent Retic PT 22.5 H INR 1.98 H APTT Heparin Anti-Xa Level 0.19 L POC ABG pH POC ABG pCO2 POC ABG pO2 Sodium 156 H Potassium Chloride 115.4 H Carbon Dioxide BUN 23 H Creatinine Glucose 143 H POC Glucose 194 H Calcium Phosphorus Iron TIBC Lactate Dehydrogenase Total Creatine Kinase NT-Pro-B Natriuret Pep Total Protein Albumin Dyaaq-6-Pnsctjlhl Wcxuw-0-Basrlzieq Beta Globulins PEP Interpretation Cholesterol LDL Cholesterol Direct Vitamin B12 Urine Creatinine Crossmatch 04/12/16 04/12/16 04/12/16 12:34 19:01 23:30 WBC RBC Hgb Hct MCV MCH MCHC RDW Plt Count Lymph % (Auto) Randall % (Auto) Lymph # Randall # Baso # Seg Neutrophils % Seg Neuts % (Manual) Lymphocytes % (Manual) Monocytes % (Manual) Seg Neutrophils # Seg Neutrophils # Man Lymphocytes # (Manual) Monocytes # (Manual) Basophils # (Manual) Percent Retic PT INR APTT Heparin Anti-Xa Level POC ABG pH POC ABG pCO2 POC ABG pO2 Sodium Potassium Chloride Carbon Dioxide BUN Creatinine Glucose POC Glucose 291 H 235 H 154 H Calcium Phosphorus Iron TIBC Lactate Dehydrogenase Total Creatine Kinase NT-Pro-B Natriuret Pep Total Protein Albumin Zgruf-3-Ctlmkyzot Dcdqh-6-Jcicwmhob Beta Globulins PEP Interpretation Cholesterol LDL Cholesterol Direct Vitamin B12 Urine Creatinine Crossmatch 04/13/16 04/13/16 04/13/16 05:16 05:16 05:28 WBC RBC Hgb Hct MCV MCH MCHC RDW Plt Count Lymph % (Auto) Randall % (Auto) Lymph # Randall # Baso # Seg Neutrophils % Seg Neuts % (Manual) Lymphocytes % (Manual) Monocytes % (Manual) Seg Neutrophils # Seg Neutrophils # Man Lymphocytes # (Manual) Monocytes # (Manual) Basophils # (Manual) Percent Retic PT 27.0 H INR 2.49 H APTT Heparin Anti-Xa Level 0.20 L POC ABG pH POC ABG pCO2 POC ABG pO2 Sodium 150 H Potassium Chloride 110.5 H Carbon Dioxide BUN 21 H Creatinine Glucose 159 H POC Glucose 177 H Calcium Phosphorus Iron TIBC Lactate Dehydrogenase Total Creatine Kinase NT-Pro-B Natriuret Pep Total Protein Albumin Jtlxf-5-Dlmkzucak Ydqha-6-Zcjbnljzp Beta Globulins PEP Interpretation Cholesterol LDL Cholesterol Direct Vitamin B12 Urine Creatinine Crossmatch 04/13/16 04/13/16 04/14/16 11:30 17:54 00:44 WBC RBC Hgb Hct MCV MCH MCHC RDW Plt Count Lymph % (Auto) Randall % (Auto) Lymph # Randall # Baso # Seg Neutrophils % Seg Neuts % (Manual) Lymphocytes % (Manual) Monocytes % (Manual) Seg Neutrophils # Seg Neutrophils # Man Lymphocytes # (Manual) Monocytes # (Manual) Basophils # (Manual) Percent Retic PT INR APTT Heparin Anti-Xa Level POC ABG pH POC ABG pCO2 POC ABG pO2 Sodium Potassium Chloride Carbon Dioxide BUN Creatinine Glucose POC Glucose 181 H 251 H 237 H Calcium Phosphorus Iron TIBC Lactate Dehydrogenase Total Creatine Kinase NT-Pro-B Natriuret Pep Total Protein Albumin Gcuxa-5-Flzluiezs Ypgkm-3-Xnhrsugko Beta Globulins PEP Interpretation Cholesterol LDL Cholesterol Direct Vitamin B12 Urine Creatinine Crossmatch 04/14/16 04/14/16 04/14/16 05:00 05:42 05:42 WBC RBC Hgb Hct MCV MCH MCHC RDW Plt Count Lymph % (Auto) Randall % (Auto) Lymph # Randall # Baso # Seg Neutrophils % Seg Neuts % (Manual) Lymphocytes % (Manual) Monocytes % (Manual) Seg Neutrophils # Seg Neutrophils # Man Lymphocytes # (Manual) Monocytes # (Manual) Basophils # (Manual) Percent Retic PT 30.3 H INR 2.88 H APTT Heparin Anti-Xa Level 0.27 L POC ABG pH POC ABG pCO2 POC ABG pO2 Sodium Potassium 3.5 L Chloride Carbon Dioxide BUN Creatinine Glucose 160 H POC Glucose Calcium 8.2 L Phosphorus Iron TIBC Lactate Dehydrogenase Total Creatine Kinase NT-Pro-B Natriuret Pep Total Protein Albumin Pjpvi-2-Sowwvgbtv Awksh-1-Ytsvxryir Beta Globulins PEP Interpretation Cholesterol LDL Cholesterol Direct Vitamin B12 Urine Creatinine Crossmatch 04/14/16 04/14/16 04/14/16 06:02 06:16 09:18 WBC 12.3 H RBC Hgb 11.4 L Hct MCV 82 L MCH 26 L MCHC RDW Plt Count Lymph % (Auto) Randall % (Auto) Lymph # Randall # Baso # Seg Neutrophils % Seg Neuts % (Manual) Lymphocytes % (Manual) Monocytes % (Manual) Seg Neutrophils # Seg Neutrophils # Man Lymphocytes # (Manual) Monocytes # (Manual) Basophils # (Manual) Percent Retic PT INR APTT Heparin Anti-Xa Level POC ABG pH POC ABG pCO2 POC ABG pO2 Sodium Potassium Chloride Carbon Dioxide BUN Creatinine Glucose POC Glucose 156 H 164 H Calcium Phosphorus Iron TIBC Lactate Dehydrogenase Total Creatine Kinase NT-Pro-B Natriuret Pep Total Protein Albumin Ehknx-5-Tflbtdfwj Wmwwp-3-Jwphciuhu Beta Globulins PEP Interpretation Cholesterol LDL Cholesterol Direct Vitamin B12 Urine Creatinine Crossmatch 04/14/16 04/15/16 04/15/16 13:58 01:07 06:04 WBC RBC Hgb Hct MCV MCH MCHC RDW Plt Count Lymph % (Auto) Randall % (Auto) Lymph # Randall # Baso # Seg Neutrophils % Seg Neuts % (Manual) Lymphocytes % (Manual) Monocytes % (Manual) Seg Neutrophils # Seg Neutrophils # Man Lymphocytes # (Manual) Monocytes # (Manual) Basophils # (Manual) Percent Retic PT 24.9 H INR 2.25 H APTT Heparin Anti-Xa Level POC ABG pH POC ABG pCO2 POC ABG pO2 Sodium Potassium Chloride Carbon Dioxide BUN Creatinine Glucose POC Glucose 109 H 154 H Calcium Phosphorus Iron TIBC Lactate Dehydrogenase Total Creatine Kinase NT-Pro-B Natriuret Pep Total Protein Albumin Hljbc-2-Okjgzglqq Muxbi-9-Advdylixy Beta Globulins PEP Interpretation Cholesterol LDL Cholesterol Direct Vitamin B12 Urine Creatinine Crossmatch 04/15/16 04/15/16 04/16/16 06:08 12:41 00:38 WBC RBC Hgb Hct MCV MCH MCHC RDW Plt Count Lymph % (Auto) Randall % (Auto) Lymph # Randall # Baso # Seg Neutrophils % Seg Neuts % (Manual) Lymphocytes % (Manual) Monocytes % (Manual) Seg Neutrophils # Seg Neutrophils # Man Lymphocytes # (Manual) Monocytes # (Manual) Basophils # (Manual) Percent Retic PT INR APTT Heparin Anti-Xa Level POC ABG pH POC ABG pCO2 POC ABG pO2 Sodium Potassium Chloride Carbon Dioxide BUN Creatinine Glucose POC Glucose 165 H 223 H 216 H Calcium Phosphorus Iron TIBC Lactate Dehydrogenase Total Creatine Kinase NT-Pro-B Natriuret Pep Total Protein Albumin Eadua-3-Cujhuzvkr Kptnc-4-Twawnjaqc Beta Globulins PEP Interpretation Cholesterol LDL Cholesterol Direct Vitamin B12 Urine Creatinine Crossmatch 04/16/16 04/16/16 04/16/16 05:45 07:09 14:00 WBC RBC Hgb Hct MCV MCH MCHC RDW Plt Count Lymph % (Auto) Randall % (Auto) Lymph # Randall # Baso # Seg Neutrophils % Seg Neuts % (Manual) Lymphocytes % (Manual) Monocytes % (Manual) Seg Neutrophils # Seg Neutrophils # Man Lymphocytes # (Manual) Monocytes # (Manual) Basophils # (Manual) Percent Retic PT 19.4 H INR 1.64 H APTT Heparin Anti-Xa Level 0.10 L POC ABG pH POC ABG pCO2 POC ABG pO2 Sodium Potassium Chloride Carbon Dioxide BUN Creatinine Glucose POC Glucose 207 H 69 L Calcium Phosphorus Iron TIBC Lactate Dehydrogenase Total Creatine Kinase NT-Pro-B Natriuret Pep Total Protein Albumin Mdshg-5-Fdgeenvlv Zathb-5-Atnjppczj Beta Globulins PEP Interpretation Cholesterol LDL Cholesterol Direct Vitamin B12 Urine Creatinine Crossmatch 04/16/16 04/16/16 04/16/16 17:40 17:52 19:38 WBC RBC Hgb Hct MCV MCH MCHC RDW Plt Count Lymph % (Auto) Randall % (Auto) Lymph # Randall # Baso # Seg Neutrophils % Seg Neuts % (Manual) Lymphocytes % (Manual) Monocytes % (Manual) Seg Neutrophils # Seg Neutrophils # Man Lymphocytes # (Manual) Monocytes # (Manual) Basophils # (Manual) Percent Retic PT INR APTT Heparin Anti-Xa Level 0.26 L POC ABG pH 7.543 H 7.488 H POC ABG pCO2 26.3 L 30.3 L POC ABG pO2 55 L 203 H Sodium Potassium Chloride Carbon Dioxide BUN Creatinine Glucose POC Glucose Calcium Phosphorus Iron TIBC Lactate Dehydrogenase Total Creatine Kinase NT-Pro-B Natriuret Pep Total Protein Albumin Rdyuf-3-Nlcbtaghx Prowu-6-Oeewosdnr Beta Globulins PEP Interpretation Cholesterol LDL Cholesterol Direct Vitamin B12 Urine Creatinine Crossmatch 04/17/16 04/17/16 04/17/16 00:04 05:10 05:36 WBC RBC Hgb Hct MCV MCH MCHC RDW Plt Count Lymph % (Auto) Randall % (Auto) Lymph # Randall # Baso # Seg Neutrophils % Seg Neuts % (Manual) Lymphocytes % (Manual) Monocytes % (Manual) Seg Neutrophils # Seg Neutrophils # Man Lymphocytes # (Manual) Monocytes # (Manual) Basophils # (Manual) Percent Retic PT INR APTT Heparin Anti-Xa Level POC ABG pH POC ABG pCO2 32.7 L POC ABG pO2 68 L Sodium Potassium Chloride Carbon Dioxide BUN Creatinine Glucose POC Glucose 113 H 161 H Calcium Phosphorus Iron TIBC Lactate Dehydrogenase Total Creatine Kinase NT-Pro-B Natriuret Pep Total Protein Albumin Ljyut-1-Vztkrbrzo Vwekm-3-Dfznpdwid Beta Globulins PEP Interpretation Cholesterol LDL Cholesterol Direct Vitamin B12 Urine Creatinine Crossmatch 04/17/16 04/17/16 04/17/16 05:41 08:37 11:46 WBC RBC Hgb Hct MCV MCH MCHC RDW Plt Count Lymph % (Auto) Randall % (Auto) Lymph # Randall # Baso # Seg Neutrophils % Seg Neuts % (Manual) Lymphocytes % (Manual) Monocytes % (Manual) Seg Neutrophils # Seg Neutrophils # Man Lymphocytes # (Manual) Monocytes # (Manual) Basophils # (Manual) Percent Retic PT 17.4 H INR 1.43 H APTT Heparin Anti-Xa Level POC ABG pH POC ABG pCO2 POC ABG pO2 Sodium Potassium Chloride Carbon Dioxide BUN Creatinine Glucose POC Glucose 154 H 138 H Calcium Phosphorus Iron TIBC Lactate Dehydrogenase Total Creatine Kinase NT-Pro-B Natriuret Pep Total Protein Albumin Wmidb-3-Bakgimjoq Cchfj-0-Ndkvmbenk Beta Globulins PEP Interpretation Cholesterol LDL Cholesterol Direct Vitamin B12 Urine Creatinine Crossmatch 04/17/16 04/17/16 04/17/16 12:17 12:17 21:20 WBC 16.5 H RBC 3.31 L Hgb 8.8 L Hct 26.9 L MCV 81 L MCH 27 L MCHC RDW 15.5 H Plt Count Lymph % (Auto) Randall % (Auto) Lymph # Randall # Baso # Seg Neutrophils % Seg Neuts % (Manual) Lymphocytes % (Manual) 3.0 L Monocytes % (Manual) Seg Neutrophils # Seg Neutrophils # Man 10.1 H Lymphocytes # (Manual) 0.5 L Monocytes # (Manual) Basophils # (Manual) Percent Retic PT INR APTT Heparin Anti-Xa Level 0.14 L POC ABG pH POC ABG pCO2 POC ABG pO2 Sodium Potassium Chloride Carbon Dioxide 21 L BUN 38 H Creatinine 1.8 H D Glucose 131 H POC Glucose Calcium 7.6 L Phosphorus Iron TIBC Lactate Dehydrogenase Total Creatine Kinase NT-Pro-B Natriuret Pep Total Protein Albumin Urgjs-4-Bcxkdygsp Ueprx-7-Hdtddfpgh Beta Globulins PEP Interpretation Cholesterol LDL Cholesterol Direct Vitamin B12 Urine Creatinine Crossmatch 04/17/16 04/17/16 04/18/16 23:38 23:41 00:21 WBC RBC Hgb Hct MCV MCH MCHC RDW Plt Count Lymph % (Auto) Randall % (Auto) Lymph # Randall # Baso # Seg Neutrophils % Seg Neuts % (Manual) Lymphocytes % (Manual) Monocytes % (Manual) Seg Neutrophils # Seg Neutrophils # Man Lymphocytes # (Manual) Monocytes # (Manual) Basophils # (Manual) Percent Retic PT INR APTT Heparin Anti-Xa Level POC ABG pH POC ABG pCO2 POC ABG pO2 Sodium Potassium Chloride Carbon Dioxide BUN Creatinine Glucose POC Glucose < 40 L < 40 L 223 H Calcium Phosphorus Iron TIBC Lactate Dehydrogenase Total Creatine Kinase NT-Pro-B Natriuret Pep Total Protein Albumin Iccyz-8-Siwradgyi Ibdia-9-Hjtunybfl Beta Globulins PEP Interpretation Cholesterol LDL Cholesterol Direct Vitamin B12 Urine Creatinine Crossmatch 04/18/16 04/18/16 04/18/16 05:01 05:20 05:20 WBC 17.6 H RBC 3.44 L Hgb 9.1 L Hct 27.8 L MCV 81 L MCH 26 L MCHC RDW 15.5 H Plt Count Lymph % (Auto) 2.7 L Randall % (Auto) 8.3 H Lymph # 0.5 L Randall # 1.5 H Baso # Seg Neutrophils % 88.4 H Seg Neuts % (Manual) Lymphocytes % (Manual) Monocytes % (Manual) Seg Neutrophils # 15.6 H Seg Neutrophils # Man Lymphocytes # (Manual) Monocytes # (Manual) Basophils # (Manual) Percent Retic PT 17.4 H INR 1.43 H APTT Heparin Anti-Xa Level POC ABG pH 7.528 H POC ABG pCO2 27.9 L POC ABG pO2 Sodium Potassium Chloride Carbon Dioxide BUN Creatinine Glucose POC Glucose Calcium Phosphorus Iron TIBC Lactate Dehydrogenase Total Creatine Kinase NT-Pro-B Natriuret Pep Total Protein Albumin Gxfiu-6-Nuwmyezrs Slppi-7-Neszjaxtl Beta Globulins PEP Interpretation Cholesterol LDL Cholesterol Direct Vitamin B12 Urine Creatinine Crossmatch 04/18/16 04/18/16 04/18/16 05:20 05:31 06:50 WBC RBC Hgb Hct MCV MCH MCHC RDW Plt Count Lymph % (Auto) Randall % (Auto) Lymph # Randall # Baso # Seg Neutrophils % Seg Neuts % (Manual) Lymphocytes % (Manual) Monocytes % (Manual) Seg Neutrophils # Seg Neutrophils # Man Lymphocytes # (Manual) Monocytes # (Manual) Basophils # (Manual) Percent Retic PT INR APTT Heparin Anti-Xa Level POC ABG pH POC ABG pCO2 POC ABG pO2 Sodium Potassium 3.4 L Chloride Carbon Dioxide 21 L BUN 22 H Creatinine Glucose POC Glucose 61 L 124 H Calcium 8.0 L Phosphorus Iron TIBC Lactate Dehydrogenase Total Creatine Kinase NT-Pro-B Natriuret Pep Total Protein Albumin Ylfqv-5-Cfslvcnhx Dmzkp-8-Ylywmrqdr Beta Globulins PEP Interpretation Cholesterol LDL Cholesterol Direct Vitamin B12 Urine Creatinine Crossmatch 04/18/16 04/18/16 04/19/16 17:42 22:40 00:31 WBC RBC Hgb Hct MCV MCH MCHC RDW Plt Count Lymph % (Auto) Randall % (Auto) Lymph # Randall # Baso # Seg Neutrophils % Seg Neuts % (Manual) Lymphocytes % (Manual) Monocytes % (Manual) Seg Neutrophils # Seg Neutrophils # Man Lymphocytes # (Manual) Monocytes # (Manual) Basophils # (Manual) Percent Retic PT INR APTT Heparin Anti-Xa Level < 0.10 L POC ABG pH POC ABG pCO2 POC ABG pO2 Sodium Potassium Chloride Carbon Dioxide BUN Creatinine Glucose POC Glucose 159 H 134 H Calcium Phosphorus Iron TIBC Lactate Dehydrogenase Total Creatine Kinase NT-Pro-B Natriuret Pep Total Protein Albumin Ahtri-6-Eetllapfe Ohtcx-6-Yospysxud Beta Globulins PEP Interpretation Cholesterol LDL Cholesterol Direct Vitamin B12 Urine Creatinine Crossmatch 04/19/16 04/19/16 04/19/16 04:18 04:18 04:25 WBC 19.0 H RBC 3.58 L Hgb 9.3 L Hct 28.8 L MCV 80 L MCH 26 L MCHC RDW 15.5 H Plt Count Lymph % (Auto) 2.8 L Randall % (Auto) 7.4 H Lymph # 0.5 L Randall # 1.4 H Baso # Seg Neutrophils % 89.4 H Seg Neuts % (Manual) Lymphocytes % (Manual) Monocytes % (Manual) Seg Neutrophils # 17.0 H Seg Neutrophils # Man Lymphocytes # (Manual) Monocytes # (Manual) Basophils # (Manual) Percent Retic PT INR APTT Heparin Anti-Xa Level POC ABG pH 7.527 H POC ABG pCO2 27.1 L POC ABG pO2 Sodium Potassium Chloride Carbon Dioxide BUN 22 H Creatinine Glucose 215 H POC Glucose Calcium 8.0 L Phosphorus Iron TIBC Lactate Dehydrogenase Total Creatine Kinase NT-Pro-B Natriuret Pep Total Protein Albumin Dycfr-6-Rwjmlensm Skikl-5-Avoiyvoff Beta Globulins PEP Interpretation Cholesterol LDL Cholesterol Direct Vitamin B12 Urine Creatinine Crossmatch 04/19/16 04/19/16 04/19/16 05:45 08:10 14:08 WBC RBC Hgb Hct MCV MCH MCHC RDW Plt Count Lymph % (Auto) Randall % (Auto) Lymph # Randall # Baso # Seg Neutrophils % Seg Neuts % (Manual) Lymphocytes % (Manual) Monocytes % (Manual) Seg Neutrophils # Seg Neutrophils # Man Lymphocytes # (Manual) Monocytes # (Manual) Basophils # (Manual) Percent Retic PT 22.1 H INR 1.93 H APTT Heparin Anti-Xa Level 0.17 L POC ABG pH POC ABG pCO2 POC ABG pO2 Sodium Potassium Chloride Carbon Dioxide BUN Creatinine Glucose POC Glucose 196 H 318 H Calcium Phosphorus Iron TIBC Lactate Dehydrogenase Total Creatine Kinase NT-Pro-B Natriuret Pep Total Protein Albumin Cbdjv-5-Gqqgkvkvc Quivd-1-Hksaeanqk Beta Globulins PEP Interpretation Cholesterol LDL Cholesterol Direct Vitamin B12 Urine Creatinine Crossmatch 04/19/16 04/20/16 04/20/16 17:27 03:55 03:55 WBC 18.5 H RBC 3.19 L Hgb 8.4 L Hct 25.7 L MCV 80 L MCH 26 L MCHC RDW 15.9 H Plt Count Lymph % (Auto) 4.3 L Randall % (Auto) 10.1 H Lymph # 0.8 L Randall # 1.9 H Baso # Seg Neutrophils % 85.2 H Seg Neuts % (Manual) Lymphocytes % (Manual) Monocytes % (Manual) Seg Neutrophils # 15.8 H Seg Neutrophils # Man Lymphocytes # (Manual) Monocytes # (Manual) Basophils # (Manual) Percent Retic PT 22.0 H INR 1.92 H APTT Heparin Anti-Xa Level 0.14 L POC ABG pH POC ABG pCO2 POC ABG pO2 Sodium Potassium Chloride Carbon Dioxide BUN Creatinine Glucose POC Glucose 230 H Calcium Phosphorus Iron TIBC Lactate Dehydrogenase Total Creatine Kinase NT-Pro-B Natriuret Pep Total Protein Albumin Dtlze-7-Omihhpcms Rxdpz-1-Cqhfrkbyi Beta Globulins PEP Interpretation Cholesterol LDL Cholesterol Direct Vitamin B12 Urine Creatinine Crossmatch 04/20/16 04/20/16 04/20/16 03:55 04:16 05:52 WBC RBC Hgb Hct MCV MCH MCHC RDW Plt Count Lymph % (Auto) Randall % (Auto) Lymph # Randall # Baso # Seg Neutrophils % Seg Neuts % (Manual) Lymphocytes % (Manual) Monocytes % (Manual) Seg Neutrophils # Seg Neutrophils # Man Lymphocytes # (Manual) Monocytes # (Manual) Basophils # (Manual) Percent Retic PT INR APTT Heparin Anti-Xa Level POC ABG pH 7.474 H POC ABG pCO2 26.5 L POC ABG pO2 Sodium Potassium Chloride Carbon Dioxide 18 L BUN 38 H Creatinine 2.7 H D Glucose 159 H POC Glucose 214 H Calcium 8.0 L Phosphorus Iron TIBC Lactate Dehydrogenase Total Creatine Kinase NT-Pro-B Natriuret Pep Total Protein Albumin Filoa-8-Buipwhafe Ogohh-7-Hzzykmhfh Beta Globulins PEP Interpretation Cholesterol LDL Cholesterol Direct Vitamin B12 Urine Creatinine Crossmatch 04/20/16 04/20/16 04/20/16 10:32 11:27 11:50 WBC RBC Hgb Hct MCV MCH MCHC RDW Plt Count Lymph % (Auto) Randall % (Auto) Lymph # Randall # Baso # Seg Neutrophils % Seg Neuts % (Manual) Lymphocytes % (Manual) Monocytes % (Manual) Seg Neutrophils # Seg Neutrophils # Man Lymphocytes # (Manual) Monocytes # (Manual) Basophils # (Manual) Percent Retic PT INR APTT Heparin Anti-Xa Level POC ABG pH POC ABG pCO2 POC ABG pO2 Sodium Potassium Chloride Carbon Dioxide 20 L BUN 45 H Creatinine 3.0 H Glucose 215 H POC Glucose 248 H Calcium 8.0 L Phosphorus Iron TIBC Lactate Dehydrogenase Total Creatine Kinase NT-Pro-B Natriuret Pep Total Protein Albumin Rzywt-5-Yoeyhqlci Bvwlk-3-Lfwjwmxba Beta Globulins PEP Interpretation Cholesterol LDL Cholesterol Direct Vitamin B12 Urine Creatinine 85.5 H Crossmatch 04/20/16 04/21/16 04/21/16 16:59 00:13 04:29 WBC RBC Hgb Hct MCV MCH MCHC RDW Plt Count Lymph % (Auto) Randall % (Auto) Lymph # Randall # Baso # Seg Neutrophils % Seg Neuts % (Manual) Lymphocytes % (Manual) Monocytes % (Manual) Seg Neutrophils # Seg Neutrophils # Man Lymphocytes # (Manual) Monocytes # (Manual) Basophils # (Manual) Percent Retic PT 18.1 H INR 1.50 H APTT Heparin Anti-Xa Level 0.10 L POC ABG pH POC ABG pCO2 POC ABG pO2 Sodium Potassium Chloride Carbon Dioxide BUN Creatinine Glucose POC Glucose 312 H 287 H Calcium Phosphorus Iron TIBC Lactate Dehydrogenase Total Creatine Kinase NT-Pro-B Natriuret Pep Total Protein Albumin Yydqs-8-Jcgdsclxo Aueke-8-Xfpklbgjg Beta Globulins PEP Interpretation Cholesterol LDL Cholesterol Direct Vitamin B12 Urine Creatinine Crossmatch 04/21/16 04/21/16 04/21/16 04:29 04:29 04:55 WBC 15.4 H RBC 3.24 L Hgb 8.4 L Hct 25.6 L MCV 79 L MCH 26 L MCHC RDW 16.1 H Plt Count Lymph % (Auto) 6.8 L Randall % (Auto) 12.9 H Lymph # 1.0 L Randall # 2.0 H Baso # Seg Neutrophils % 79.8 H Seg Neuts % (Manual) Lymphocytes % (Manual) Monocytes % (Manual) Seg Neutrophils # 12.3 H Seg Neutrophils # Man Lymphocytes # (Manual) Monocytes # (Manual) Basophils # (Manual) Percent Retic PT INR APTT Heparin Anti-Xa Level POC ABG pH 7.512 H POC ABG pCO2 25.4 L POC ABG pO2 Sodium 135 L Potassium Chloride Carbon Dioxide 18 L BUN 57 H Creatinine 3.9 H Glucose 202 H POC Glucose Calcium 8.0 L Phosphorus Iron TIBC Lactate Dehydrogenase Total Creatine Kinase NT-Pro-B Natriuret Pep Total Protein Albumin Fghkb-2-Gicunxocz Revbm-5-Hidyxzmxw Beta Globulins PEP Interpretation Cholesterol LDL Cholesterol Direct Vitamin B12 Urine Creatinine Crossmatch 04/21/16 04/21/16 04/21/16 05:20 12:08 12:16 WBC RBC Hgb Hct MCV MCH MCHC RDW Plt Count Lymph % (Auto) Randall % (Auto) Lymph # Randall # Baso # Seg Neutrophils % Seg Neuts % (Manual) Lymphocytes % (Manual) Monocytes % (Manual) Seg Neutrophils # Seg Neutrophils # Man Lymphocytes # (Manual) Monocytes # (Manual) Basophils # (Manual) Percent Retic PT INR APTT Heparin Anti-Xa Level 0.16 L POC ABG pH POC ABG pCO2 POC ABG pO2 Sodium Potassium Chloride Carbon Dioxide BUN Creatinine Glucose POC Glucose 203 H 221 H Calcium Phosphorus Iron TIBC Lactate Dehydrogenase Total Creatine Kinase NT-Pro-B Natriuret Pep Total Protein Albumin Zqpzh-9-Nswvblyzz Ogavd-1-Glgtzgamf Beta Globulins PEP Interpretation Cholesterol LDL Cholesterol Direct Vitamin B12 Urine Creatinine Crossmatch 04/21/16 04/22/16 04/22/16 17:22 05:01 05:20 WBC RBC Hgb Hct MCV MCH MCHC RDW Plt Count Lymph % (Auto) Randall % (Auto) Lymph # Randall # Baso # Seg Neutrophils % Seg Neuts % (Manual) Lymphocytes % (Manual) Monocytes % (Manual) Seg Neutrophils # Seg Neutrophils # Man Lymphocytes # (Manual) Monocytes # (Manual) Basophils # (Manual) Percent Retic PT 17.5 H INR 1.44 H APTT Heparin Anti-Xa Level POC ABG pH 7.460 H POC ABG pCO2 27.9 L POC ABG pO2 Sodium Potassium Chloride Carbon Dioxide BUN Creatinine Glucose POC Glucose 189 H Calcium Phosphorus Iron TIBC Lactate Dehydrogenase Total Creatine Kinase NT-Pro-B Natriuret Pep Total Protein Albumin Zoost-0-Mesqvyohy Apjca-0-Vzemhgsuf Beta Globulins PEP Interpretation Cholesterol LDL Cholesterol Direct Vitamin B12 Urine Creatinine Crossmatch 04/22/16 04/22/16 04/22/16 05:43 06:40 08:08 WBC RBC Hgb Hct MCV MCH MCHC RDW Plt Count Lymph % (Auto) Randall % (Auto) Lymph # Randall # Baso # Seg Neutrophils % Seg Neuts % (Manual) Lymphocytes % (Manual) Monocytes % (Manual) Seg Neutrophils # Seg Neutrophils # Man Lymphocytes # (Manual) Monocytes # (Manual) Basophils # (Manual) Percent Retic PT INR APTT Heparin Anti-Xa Level POC ABG pH POC ABG pCO2 POC ABG pO2 Sodium Potassium Chloride Carbon Dioxide BUN Creatinine Glucose POC Glucose 56 L 136 H 134 H Calcium Phosphorus Iron TIBC Lactate Dehydrogenase Total Creatine Kinase NT-Pro-B Natriuret Pep Total Protein Albumin Oxgqu-7-Ctsbtvipe Ywnrs-2-Dssqfzstu Beta Globulins PEP Interpretation Cholesterol LDL Cholesterol Direct Vitamin B12 Urine Creatinine Crossmatch 04/22/16 04/22/16 04/22/16 11:18 12:10 18:17 WBC RBC Hgb Hct MCV MCH MCHC RDW Plt Count Lymph % (Auto) Randall % (Auto) Lymph # Randall # Baso # Seg Neutrophils % Seg Neuts % (Manual) Lymphocytes % (Manual) Monocytes % (Manual) Seg Neutrophils # Seg Neutrophils # Man Lymphocytes # (Manual) Monocytes # (Manual) Basophils # (Manual) Percent Retic PT INR APTT Heparin Anti-Xa Level 0.12 L POC ABG pH POC ABG pCO2 POC ABG pO2 Sodium Potassium Chloride Carbon Dioxide BUN Creatinine Glucose POC Glucose 142 H 227 H Calcium Phosphorus Iron TIBC Lactate Dehydrogenase Total Creatine Kinase NT-Pro-B Natriuret Pep Total Protein Albumin Stcus-4-Mpmwfrugo Tgwxq-9-Qfmyjnsam Beta Globulins PEP Interpretation Cholesterol LDL Cholesterol Direct Vitamin B12 Urine Creatinine Crossmatch 04/22/16 04/22/16 04/23/16 22:28 23:47 04:49 WBC RBC Hgb Hct MCV MCH MCHC RDW Plt Count Lymph % (Auto) Randall % (Auto) Lymph # Randall # Baso # Seg Neutrophils % Seg Neuts % (Manual) Lymphocytes % (Manual) Monocytes % (Manual) Seg Neutrophils # Seg Neutrophils # Man Lymphocytes # (Manual) Monocytes # (Manual) Basophils # (Manual) Percent Retic PT INR APTT Heparin Anti-Xa Level 0.16 L POC ABG pH POC ABG pCO2 32.6 L POC ABG pO2 122 H Sodium Potassium Chloride Carbon Dioxide BUN Creatinine Glucose POC Glucose 266 H Calcium Phosphorus Iron TIBC Lactate Dehydrogenase Total Creatine Kinase NT-Pro-B Natriuret Pep Total Protein Albumin Jdgvg-2-Ssljonrsm Cgyrm-7-Lpaitekdt Beta Globulins PEP Interpretation Cholesterol LDL Cholesterol Direct Vitamin B12 Urine Creatinine Crossmatch 04/23/16 04/23/16 04/23/16 05:41 08:05 08:34 WBC RBC Hgb Hct MCV MCH MCHC RDW Plt Count Lymph % (Auto) Randall % (Auto) Lymph # Randall # Baso # Seg Neutrophils % Seg Neuts % (Manual) Lymphocytes % (Manual) Monocytes % (Manual) Seg Neutrophils # Seg Neutrophils # Man Lymphocytes # (Manual) Monocytes # (Manual) Basophils # (Manual) Percent Retic PT INR APTT Heparin Anti-Xa Level POC ABG pH POC ABG pCO2 POC ABG pO2 Sodium Potassium Chloride 109.5 H Carbon Dioxide 21 L BUN 23 H Creatinine Glucose 227 H POC Glucose 227 H 224 H Calcium 8.2 L Phosphorus Iron TIBC Lactate Dehydrogenase Total Creatine Kinase NT-Pro-B Natriuret Pep Total Protein Albumin Suxaz-5-Efpsdxleu Ftgrw-0-Vtaprqovd Beta Globulins PEP Interpretation Cholesterol LDL Cholesterol Direct Vitamin B12 Urine Creatinine Crossmatch 04/23/16 04/23/16 04/23/16 10:45 11:37 22:49 WBC RBC Hgb Hct MCV MCH MCHC RDW Plt Count Lymph % (Auto) Randall % (Auto) Lymph # Randall # Baso # Seg Neutrophils % Seg Neuts % (Manual) Lymphocytes % (Manual) Monocytes % (Manual) Seg Neutrophils # Seg Neutrophils # Man Lymphocytes # (Manual) Monocytes # (Manual) Basophils # (Manual) Percent Retic PT 15.9 H INR 1.28 H APTT Heparin Anti-Xa Level 0.12 L POC ABG pH POC ABG pCO2 POC ABG pO2 Sodium Potassium Chloride Carbon Dioxide BUN Creatinine Glucose POC Glucose 256 H Calcium Phosphorus Iron TIBC Lactate Dehydrogenase Total Creatine Kinase NT-Pro-B Natriuret Pep Total Protein Albumin Hvptr-6-Rimnibpyn Fkqct-5-Vqkgyggld Beta Globulins PEP Interpretation Cholesterol LDL Cholesterol Direct Vitamin B12 Urine Creatinine Crossmatch 04/23/16 04/24/16 04/24/16 23:59 05:29 06:03 WBC RBC Hgb Hct MCV MCH MCHC RDW Plt Count Lymph % (Auto) Randall % (Auto) Lymph # Randall # Baso # Seg Neutrophils % Seg Neuts % (Manual) Lymphocytes % (Manual) Monocytes % (Manual) Seg Neutrophils # Seg Neutrophils # Man Lymphocytes # (Manual) Monocytes # (Manual) Basophils # (Manual) Percent Retic PT INR APTT Heparin Anti-Xa Level POC ABG pH 7.464 H POC ABG pCO2 32.4 L POC ABG pO2 115 H Sodium Potassium Chloride Carbon Dioxide BUN Creatinine Glucose POC Glucose 176 H 256 H Calcium Phosphorus Iron TIBC Lactate Dehydrogenase Total Creatine Kinase NT-Pro-B Natriuret Pep Total Protein Albumin Qehjx-1-Aalycgcxq Dtcef-3-Drndezljr Beta Globulins PEP Interpretation Cholesterol LDL Cholesterol Direct Vitamin B12 Urine Creatinine Crossmatch 04/24/16 04/24/16 04/24/16 07:59 12:10 17:17 WBC RBC Hgb Hct MCV MCH MCHC RDW Plt Count Lymph % (Auto) Randall % (Auto) Lymph # Randall # Baso # Seg Neutrophils % Seg Neuts % (Manual) Lymphocytes % (Manual) Monocytes % (Manual) Seg Neutrophils # Seg Neutrophils # Man Lymphocytes # (Manual) Monocytes # (Manual) Basophils # (Manual) Percent Retic PT INR APTT Heparin Anti-Xa Level 0.18 L POC ABG pH POC ABG pCO2 POC ABG pO2 Sodium Potassium Chloride Carbon Dioxide BUN Creatinine Glucose POC Glucose 304 H 325 H Calcium Phosphorus Iron TIBC Lactate Dehydrogenase Total Creatine Kinase NT-Pro-B Natriuret Pep Total Protein Albumin Suoyv-0-Ffrtnqmtu Syrwm-3-Nvwuozbwo Beta Globulins PEP Interpretation Cholesterol LDL Cholesterol Direct Vitamin B12 Urine Creatinine Crossmatch 04/25/16 04/25/16 04/25/16 00:52 06:40 06:44 WBC RBC Hgb Hct MCV MCH MCHC RDW Plt Count Lymph % (Auto) Randall % (Auto) Lymph # Randall # Baso # Seg Neutrophils % Seg Neuts % (Manual) Lymphocytes % (Manual) Monocytes % (Manual) Seg Neutrophils # Seg Neutrophils # Man Lymphocytes # (Manual) Monocytes # (Manual) Basophils # (Manual) Percent Retic PT INR APTT Heparin Anti-Xa Level 0.11 L POC ABG pH POC ABG pCO2 POC ABG pO2 Sodium Potassium Chloride Carbon Dioxide BUN Creatinine Glucose POC Glucose 212 H 184 H Calcium Phosphorus Iron TIBC Lactate Dehydrogenase Total Creatine Kinase NT-Pro-B Natriuret Pep Total Protein Albumin Ozvzn-3-Shscwxrnm Mqxnn-2-Eyraqonmi Beta Globulins PEP Interpretation Cholesterol LDL Cholesterol Direct Vitamin B12 Urine Creatinine Crossmatch 1204/25/16 04/25/16 11:40 13:26 17:27 WBC RBC Hgb Hct MCV MCH MCHC RDW Plt Count Lymph % (Auto) Randall % (Auto) Lymph # Randall # Baso # Seg Neutrophils % Seg Neuts % (Manual) Lymphocytes % (Manual) Monocytes % (Manual) Seg Neutrophils # Seg Neutrophils # Man Lymphocytes # (Manual) Monocytes # (Manual) Basophils # (Manual) Percent Retic PT INR APTT Heparin Anti-Xa Level 0.21 L POC ABG pH POC ABG pCO2 POC ABG pO2 Sodium Potassium Chloride Carbon Dioxide BUN Creatinine Glucose POC Glucose 206 H 204 H Calcium Phosphorus Iron TIBC Lactate Dehydrogenase Total Creatine Kinase NT-Pro-B Natriuret Pep Total Protein Albumin Gipls-0-Bvywuuezp Khjxy-5-Bsicduogm Beta Globulins PEP Interpretation Cholesterol LDL Cholesterol Direct Vitamin B12 Urine Creatinine Crossmatch 04/25/16 04/26/16 04/26/16 23:46 06:31 11:51 WBC RBC Hgb Hct MCV MCH MCHC RDW Plt Count Lymph % (Auto) Randall % (Auto) Lymph # Randall # Baso # Seg Neutrophils % Seg Neuts % (Manual) Lymphocytes % (Manual) Monocytes % (Manual) Seg Neutrophils # Seg Neutrophils # Man Lymphocytes # (Manual) Monocytes # (Manual) Basophils # (Manual) Percent Retic PT INR APTT Heparin Anti-Xa Level POC ABG pH POC ABG pCO2 POC ABG pO2 Sodium Potassium Chloride Carbon Dioxide BUN Creatinine Glucose POC Glucose 162 H 148 H 178 H Calcium Phosphorus Iron TIBC Lactate Dehydrogenase Total Creatine Kinase NT-Pro-B Natriuret Pep Total Protein Albumin Tdfkp-7-Dfrvakbma Odmfm-2-Zdascqunv Beta Globulins PEP Interpretation Cholesterol LDL Cholesterol Direct Vitamin B12 Urine Creatinine Crossmatch 04/26/16 04/26/16 04/26/16 12:17 16:16 18:14 WBC RBC Hgb Hct MCV MCH MCHC RDW Plt Count Lymph % (Auto) Randall % (Auto) Lymph # Randall # Baso # Seg Neutrophils % Seg Neuts % (Manual) Lymphocytes % (Manual) Monocytes % (Manual) Seg Neutrophils # Seg Neutrophils # Man Lymphocytes # (Manual) Monocytes # (Manual) Basophils # (Manual) Percent Retic PT INR APTT Heparin Anti-Xa Level POC ABG pH 7.513 H POC ABG pCO2 POC ABG pO2 76 L Sodium Potassium Chloride Carbon Dioxide BUN Creatinine Glucose POC Glucose 186 H 172 H Calcium Phosphorus Iron TIBC Lactate Dehydrogenase Total Creatine Kinase NT-Pro-B Natriuret Pep Total Protein Albumin Golgu-3-Evetuppjy Krxpm-1-Tdnuhcroe Beta Globulins PEP Interpretation Cholesterol LDL Cholesterol Direct Vitamin B12 Urine Creatinine Crossmatch 04/26/16 04/26/16 04/27/16 19:27 23:28 04:21 WBC 13.1 H RBC 2.99 L Hgb 7.8 L Hct 24.0 L MCV 81 L MCH 26 L MCHC RDW 16.7 H Plt Count 486 H Lymph % (Auto) 12.5 L Randall % (Auto) 7.9 H Lymph # Randall # 1.0 H Baso # Seg Neutrophils % 77.5 H Seg Neuts % (Manual) Lymphocytes % (Manual) Monocytes % (Manual) Seg Neutrophils # 10.2 H Seg Neutrophils # Man Lymphocytes # (Manual) Monocytes # (Manual) Basophils # (Manual) Percent Retic PT INR APTT Heparin Anti-Xa Level 0.22 L POC ABG pH POC ABG pCO2 POC ABG pO2 Sodium Potassium Chloride Carbon Dioxide BUN Creatinine Glucose POC Glucose 141 H Calcium Phosphorus Iron TIBC Lactate Dehydrogenase Total Creatine Kinase NT-Pro-B Natriuret Pep Total Protein Albumin Rkdhb-2-Bwihsbngm Vkqzp-4-Ksaoduyvi Beta Globulins PEP Interpretation Cholesterol LDL Cholesterol Direct Vitamin B12 Urine Creatinine Crossmatch 04/27/16 04/27/16 04/27/16 04:21 05:46 11:04 WBC RBC Hgb Hct MCV MCH MCHC RDW Plt Count Lymph % (Auto) Randall % (Auto) Lymph # Randall # Baso # Seg Neutrophils % Seg Neuts % (Manual) Lymphocytes % (Manual) Monocytes % (Manual) Seg Neutrophils # Seg Neutrophils # Man Lymphocytes # (Manual) Monocytes # (Manual) Basophils # (Manual) Percent Retic PT INR APTT Heparin Anti-Xa Level POC ABG pH 7.489 H POC ABG pCO2 POC ABG pO2 71 L Sodium Potassium Chloride Carbon Dioxide BUN Creatinine 0.6 L Glucose 187 H POC Glucose 192 H Calcium 8.0 L Phosphorus Iron TIBC Lactate Dehydrogenase Total Creatine Kinase NT-Pro-B Natriuret Pep Total Protein 6.0 L Albumin 2.0 L Nxajo-4-Iuavokhxo Phclu-9-Eqosxadok Beta Globulins PEP Interpretation Cholesterol LDL Cholesterol Direct Vitamin B12 Urine Creatinine Crossmatch 12/04/27/16 04/27/16 14:12 21:58 23:38 WBC RBC Hgb Hct MCV MCH MCHC RDW Plt Count Lymph % (Auto) Randall % (Auto) Lymph # Randall # Baso # Seg Neutrophils % Seg Neuts % (Manual) Lymphocytes % (Manual) Monocytes % (Manual) Seg Neutrophils # Seg Neutrophils # Man Lymphocytes # (Manual) Monocytes # (Manual) Basophils # (Manual) Percent Retic PT INR APTT Heparin Anti-Xa Level 0.24 L POC ABG pH POC ABG pCO2 POC ABG pO2 Sodium Potassium Chloride Carbon Dioxide BUN Creatinine Glucose POC Glucose 216 H 181 H Calcium Phosphorus Iron TIBC Lactate Dehydrogenase Total Creatine Kinase NT-Pro-B Natriuret Pep Total Protein Albumin Reecb-6-Vzsjjbolj Fjqrg-5-Fmnbyklfi Beta Globulins PEP Interpretation Cholesterol LDL Cholesterol Direct Vitamin B12 Urine Creatinine Crossmatch 04/28/16 04/28/16 04/28/16 04:28 05:52 11:31 WBC RBC Hgb Hct MCV MCH MCHC RDW Plt Count Lymph % (Auto) Randall % (Auto) Lymph # Randall # Baso # Seg Neutrophils % Seg Neuts % (Manual) Lymphocytes % (Manual) Monocytes % (Manual) Seg Neutrophils # Seg Neutrophils # Man Lymphocytes # (Manual) Monocytes # (Manual) Basophils # (Manual) Percent Retic PT INR APTT Heparin Anti-Xa Level POC ABG pH 7.524 H POC ABG pCO2 POC ABG pO2 Sodium Potassium Chloride Carbon Dioxide BUN Creatinine Glucose POC Glucose 254 H 280 H Calcium Phosphorus Iron TIBC Lactate Dehydrogenase Total Creatine Kinase NT-Pro-B Natriuret Pep Total Protein Albumin Vtlpy-6-Bzviamqlv Ucyla-9-Nqoqasqqp Beta Globulins PEP Interpretation Cholesterol LDL Cholesterol Direct Vitamin B12 Urine Creatinine Crossmatch 04/28/16 04/28/16 04/29/16 17:30 19:52 00:47 WBC RBC Hgb Hct MCV MCH MCHC RDW Plt Count Lymph % (Auto) Randall % (Auto) Lymph # Randall # Baso # Seg Neutrophils % Seg Neuts % (Manual) Lymphocytes % (Manual) Monocytes % (Manual) Seg Neutrophils # Seg Neutrophils # Man Lymphocytes # (Manual) Monocytes # (Manual) Basophils # (Manual) Percent Retic PT INR APTT Heparin Anti-Xa Level 0.15 L POC ABG pH POC ABG pCO2 POC ABG pO2 Sodium Potassium Chloride Carbon Dioxide BUN Creatinine Glucose POC Glucose 208 H 265 H Calcium Phosphorus Iron TIBC Lactate Dehydrogenase Total Creatine Kinase NT-Pro-B Natriuret Pep Total Protein Albumin Xcskf-7-Zvteoopyq Vavrb-8-Prcnlmeef Beta Globulins PEP Interpretation Cholesterol LDL Cholesterol Direct Vitamin B12 Urine Creatinine Crossmatch 04/29/16 04/29/16 04/29/16 04:00 04:00 04:29 WBC 13.4 H RBC 2.56 L Hgb 6.9 L Hct 20.6 L MCV 81 L MCH 27 L MCHC RDW 16.2 H Plt Count 513 H Lymph % (Auto) 10.0 L Randall % (Auto) 12.0 H Lymph # Randall # 1.6 H Baso # Seg Neutrophils % 77.1 H Seg Neuts % (Manual) Lymphocytes % (Manual) Monocytes % (Manual) Seg Neutrophils # 10.4 H Seg Neutrophils # Man Lymphocytes # (Manual) Monocytes # (Manual) Basophils # (Manual) Percent Retic PT INR APTT Heparin Anti-Xa Level POC ABG pH 7.501 H POC ABG pCO2 POC ABG pO2 76 L Sodium Potassium Chloride Carbon Dioxide BUN 27 H Creatinine Glucose 204 H POC Glucose Calcium 8.1 L Phosphorus Iron TIBC Lactate Dehydrogenase Total Creatine Kinase NT-Pro-B Natriuret Pep Total Protein Albumin Ydexb-7-Tegazfjlz Tvzzb-7-Aghbbwmnh Beta Globulins PEP Interpretation Cholesterol LDL Cholesterol Direct Vitamin B12 Urine Creatinine Crossmatch 04/29/16 04/29/16 04/29/16 06:03 10:05 10:16 WBC RBC Hgb Hct MCV MCH MCHC RDW Plt Count Lymph % (Auto) Randall % (Auto) Lymph # Randall # Baso # Seg Neutrophils % Seg Neuts % (Manual) Lymphocytes % (Manual) Monocytes % (Manual) Seg Neutrophils # Seg Neutrophils # Man Lymphocytes # (Manual) Monocytes # (Manual) Basophils # (Manual) Percent Retic 3.68 H PT INR APTT Heparin Anti-Xa Level POC ABG pH POC ABG pCO2 POC ABG pO2 Sodium Potassium Chloride Carbon Dioxide BUN Creatinine Glucose POC Glucose 192 H Calcium Phosphorus Iron TIBC Lactate Dehydrogenase Total Creatine Kinase NT-Pro-B Natriuret Pep Total Protein Albumin Btwrm-7-Qpcjcwggz Gxrgs-7-Ilmkqypou Beta Globulins PEP Interpretation Cholesterol LDL Cholesterol Direct Vitamin B12 Urine Creatinine Crossmatch See Detail 04/29/16 04/29/16 04/29/16 10:16 10:16 11:23 WBC RBC Hgb Hct MCV MCH MCHC RDW Plt Count Lymph % (Auto) Randall % (Auto) Lymph # Randall # Baso # Seg Neutrophils % Seg Neuts % (Manual) Lymphocytes % (Manual) Monocytes % (Manual) Seg Neutrophils # Seg Neutrophils # Man Lymphocytes # (Manual) Monocytes # (Manual) Basophils # (Manual) Percent Retic PT INR APTT Heparin Anti-Xa Level POC ABG pH POC ABG pCO2 POC ABG pO2 Sodium Potassium Chloride Carbon Dioxide BUN Creatinine Glucose POC Glucose 116 H Calcium Phosphorus Iron 10 L TIBC 138 L Lactate Dehydrogenase 204 H Total Creatine Kinase NT-Pro-B Natriuret Pep Total Protein Albumin Hdrib-5-Xitazlgdu Ipjsm-7-Ndhmtkoxm Beta Globulins PEP Interpretation Cholesterol LDL Cholesterol Direct Vitamin B12 1005 H Urine Creatinine Crossmatch 04/29/16 04/29/16 04/30/16 17:34 23:19 03:19 WBC RBC Hgb 9.0 L Hct 26.7 L D MCV MCH MCHC RDW Plt Count Lymph % (Auto) Randall % (Auto) Lymph # Randall # Baso # Seg Neutrophils % Seg Neuts % (Manual) Lymphocytes % (Manual) Monocytes % (Manual) Seg Neutrophils # Seg Neutrophils # Man Lymphocytes # (Manual) Monocytes # (Manual) Basophils # (Manual) Percent Retic PT INR APTT Heparin Anti-Xa Level POC ABG pH POC ABG pCO2 POC ABG pO2 Sodium Potassium Chloride Carbon Dioxide BUN Creatinine Glucose POC Glucose 142 H 242 H Calcium Phosphorus Iron TIBC Lactate Dehydrogenase Total Creatine Kinase NT-Pro-B Natriuret Pep Total Protein Albumin Jlomx-8-Ngantfnor Vjsjq-8-Ttnslymtt Beta Globulins PEP Interpretation Cholesterol LDL Cholesterol Direct Vitamin B12 Urine Creatinine Crossmatch 04/30/16 04/30/16 04/30/16 04:10 04:10 04:32 WBC 13.8 H RBC 3.54 L Hgb 9.3 L Hct 29.1 L MCV 82 L MCH 26 L MCHC RDW 16.5 H Plt Count 535 H Lymph % (Auto) 7.5 L Randall % (Auto) 13.8 H Lymph # 1.0 L Randall # 1.9 H Baso # Seg Neutrophils % 78.0 H Seg Neuts % (Manual) Lymphocytes % (Manual) Monocytes % (Manual) Seg Neutrophils # 10.7 H Seg Neutrophils # Man Lymphocytes # (Manual) Monocytes # (Manual) Basophils # (Manual) Percent Retic PT INR APTT Heparin Anti-Xa Level POC ABG pH 7.519 H POC ABG pCO2 33.6 L POC ABG pO2 79 L Sodium 146 H Potassium Chloride Carbon Dioxide BUN Creatinine 0.7 L Glucose 242 H POC Glucose Calcium 8.3 L Phosphorus Iron TIBC Lactate Dehydrogenase Total Creatine Kinase NT-Pro-B Natriuret Pep Total Protein Albumin Mxnhy-9-Bcmnvofxb Xjiew-2-Gfiakixqv Beta Globulins PEP Interpretation Cholesterol LDL Cholesterol Direct Vitamin B12 Urine Creatinine Crossmatch 04/30/16 04/30/16 04/30/16 05:33 11:23 17:26 WBC RBC Hgb Hct MCV MCH MCHC RDW Plt Count Lymph % (Auto) Randall % (Auto) Lymph # Randall # Baso # Seg Neutrophils % Seg Neuts % (Manual) Lymphocytes % (Manual) Monocytes % (Manual) Seg Neutrophils # Seg Neutrophils # Man Lymphocytes # (Manual) Monocytes # (Manual) Basophils # (Manual) Percent Retic PT INR APTT Heparin Anti-Xa Level POC ABG pH POC ABG pCO2 POC ABG pO2 Sodium Potassium Chloride Carbon Dioxide BUN Creatinine Glucose POC Glucose 242 H 305 H 281 H Calcium Phosphorus Iron TIBC Lactate Dehydrogenase Total Creatine Kinase NT-Pro-B Natriuret Pep Total Protein Albumin Nimtx-7-Crjtgjscd Yaaog-0-Gqerjreyu Beta Globulins PEP Interpretation Cholesterol LDL Cholesterol Direct Vitamin B12 Urine Creatinine Crossmatch 04/30/16 05/01/16 05/01/16 23:53 04:00 04:00 WBC 15.9 H RBC 2.99 L Hgb 7.9 L Hct 24.4 L MCV 82 L MCH 26 L MCHC RDW 16.9 H Plt Count 481 H Lymph % (Auto) 9.3 L Randall % (Auto) 15.0 H Lymph # Randall # 2.4 H Baso # Seg Neutrophils % 74.9 H Seg Neuts % (Manual) Lymphocytes % (Manual) Monocytes % (Manual) Seg Neutrophils # 11.9 H Seg Neutrophils # Man Lymphocytes # (Manual) Monocytes # (Manual) Basophils # (Manual) Percent Retic PT INR APTT Heparin Anti-Xa Level POC ABG pH POC ABG pCO2 POC ABG pO2 Sodium 147 H Potassium Chloride 107.8 H Carbon Dioxide BUN 22 H Creatinine 0.7 L Glucose 229 H POC Glucose 207 H Calcium 8.2 L Phosphorus Iron TIBC Lactate Dehydrogenase Total Creatine Kinase NT-Pro-B Natriuret Pep Total Protein Albumin Xilfs-8-Sryydqbek Erckc-8-Iyzpazhrp Beta Globulins PEP Interpretation Cholesterol LDL Cholesterol Direct Vitamin B12 Urine Creatinine Crossmatch 05/01/16 05/01/16 05/01/16 05:12 07:41 12:33 WBC RBC Hgb Hct MCV MCH MCHC RDW Plt Count Lymph % (Auto) Randall % (Auto) Lymph # Randall # Baso # Seg Neutrophils % Seg Neuts % (Manual) Lymphocytes % (Manual) Monocytes % (Manual) Seg Neutrophils # Seg Neutrophils # Man Lymphocytes # (Manual) Monocytes # (Manual) Basophils # (Manual) Percent Retic PT INR APTT Heparin Anti-Xa Level 0.16 L POC ABG pH POC ABG pCO2 POC ABG pO2 Sodium Potassium Chloride Carbon Dioxide BUN Creatinine Glucose POC Glucose 284 H 186 H Calcium Phosphorus Iron TIBC Lactate Dehydrogenase Total Creatine Kinase NT-Pro-B Natriuret Pep Total Protein Albumin Tqwep-3-Zccthnbia Fyxbf-9-Trcwgoiho Beta Globulins PEP Interpretation Cholesterol LDL Cholesterol Direct Vitamin B12 Urine Creatinine Crossmatch 05/01/16 05/01/16 05/02/16 17:24 23:19 04:48 WBC 17.2 H RBC 3.09 L Hgb 8.1 L Hct 25.5 L MCV 83 L MCH 26 L MCHC RDW 17.3 H Plt Count 507 H Lymph % (Auto) 8.0 L Randall % (Auto) 13.6 H Lymph # Randall # 2.3 H Baso # Seg Neutrophils % 77.5 H Seg Neuts % (Manual) Lymphocytes % (Manual) Monocytes % (Manual) Seg Neutrophils # 13.4 H Seg Neutrophils # Man Lymphocytes # (Manual) Monocytes # (Manual) Basophils # (Manual) Percent Retic PT INR APTT Heparin Anti-Xa Level POC ABG pH POC ABG pCO2 POC ABG pO2 Sodium Potassium Chloride Carbon Dioxide BUN Creatinine Glucose POC Glucose 171 H 132 H Calcium Phosphorus Iron TIBC Lactate Dehydrogenase Total Creatine Kinase NT-Pro-B Natriuret Pep Total Protein Albumin Kviut-2-Ffyfuueuc Zpbcm-6-Xtxolnwgb Beta Globulins PEP Interpretation Cholesterol LDL Cholesterol Direct Vitamin B12 Urine Creatinine Crossmatch 05/02/16 05/02/16 05/02/16 04:48 04:48 05:42 WBC RBC Hgb Hct MCV MCH MCHC RDW Plt Count Lymph % (Auto) Randall % (Auto) Lymph # Randall # Baso # Seg Neutrophils % Seg Neuts % (Manual) Lymphocytes % (Manual) Monocytes % (Manual) Seg Neutrophils # Seg Neutrophils # Man Lymphocytes # (Manual) Monocytes # (Manual) Basophils # (Manual) Percent Retic PT INR APTT Heparin Anti-Xa Level 0.19 L POC ABG pH POC ABG pCO2 POC ABG pO2 Sodium 149 H Potassium Chloride 109.9 H Carbon Dioxide BUN 24 H Creatinine Glucose 224 H POC Glucose 253 H Calcium 8.2 L Phosphorus Iron TIBC Lactate Dehydrogenase Total Creatine Kinase NT-Pro-B Natriuret Pep Total Protein Albumin Idsfj-5-Qhtnmsiuy Ofked-6-Loyxsafhf Beta Globulins PEP Interpretation Cholesterol LDL Cholesterol Direct Vitamin B12 Urine Creatinine Crossmatch 05/02/16 05/02/16 05/02/16 12:01 16:40 23:35 WBC RBC Hgb Hct MCV MCH MCHC RDW Plt Count Lymph % (Auto) Randall % (Auto) Lymph # Randall # Baso # Seg Neutrophils % Seg Neuts % (Manual) Lymphocytes % (Manual) Monocytes % (Manual) Seg Neutrophils # Seg Neutrophils # Man Lymphocytes # (Manual) Monocytes # (Manual) Basophils # (Manual) Percent Retic PT INR APTT Heparin Anti-Xa Level POC ABG pH POC ABG pCO2 POC ABG pO2 Sodium Potassium Chloride Carbon Dioxide BUN Creatinine Glucose POC Glucose 197 H 126 H 303 H Calcium Phosphorus Iron TIBC Lactate Dehydrogenase Total Creatine Kinase NT-Pro-B Natriuret Pep Total Protein Albumin Skqtl-0-Tzivsbkfx Eckdu-5-Jwijjkvfj Beta Globulins PEP Interpretation Cholesterol LDL Cholesterol Direct Vitamin B12 Urine Creatinine Crossmatch 05/03/16 05/03/16 05/03/16 04:31 04:31 04:31 WBC 19.1 H RBC 3.15 L Hgb 8.6 L Hct 25.7 L MCV 82 L MCH MCHC RDW 17.4 H Plt Count 525 H Lymph % (Auto) Randall % (Auto) Lymph # Randall # Baso # Seg Neutrophils % Seg Neuts % (Manual) Lymphocytes % (Manual) 10.0 L Monocytes % (Manual) 13.0 H Seg Neutrophils # Seg Neutrophils # Man 13.2 H Lymphocytes # (Manual) Monocytes # (Manual) 2.5 H Basophils # (Manual) 0.2 H Percent Retic PT INR APTT Heparin Anti-Xa Level 0.16 L POC ABG pH POC ABG pCO2 POC ABG pO2 Sodium 151 H Potassium Chloride 112.9 H Carbon Dioxide BUN 24 H Creatinine 0.7 L Glucose 303 H POC Glucose Calcium Phosphorus Iron TIBC Lactate Dehydrogenase Total Creatine Kinase NT-Pro-B Natriuret Pep Total Protein Albumin Gsbiq-6-Levguncjj Icutl-2-Cmhsrwxgy Beta Globulins PEP Interpretation Cholesterol LDL Cholesterol Direct Vitamin B12 Urine Creatinine Crossmatch 05/03/16 05/03/16 05/04/16 12:08 18:05 00:11 WBC RBC Hgb Hct MCV MCH MCHC RDW Plt Count Lymph % (Auto) Randall % (Auto) Lymph # Randall # Baso # Seg Neutrophils % Seg Neuts % (Manual) Lymphocytes % (Manual) Monocytes % (Manual) Seg Neutrophils # Seg Neutrophils # Man Lymphocytes # (Manual) Monocytes # (Manual) Basophils # (Manual) Percent Retic PT INR APTT Heparin Anti-Xa Level POC ABG pH POC ABG pCO2 POC ABG pO2 Sodium Potassium Chloride Carbon Dioxide BUN Creatinine Glucose POC Glucose 452 H 370 H 374 H Calcium Phosphorus Iron TIBC Lactate Dehydrogenase Total Creatine Kinase NT-Pro-B Natriuret Pep Total Protein Albumin Ozfar-4-Vwawvgkev Ouivj-0-Uwoalzsws Beta Globulins PEP Interpretation Cholesterol LDL Cholesterol Direct Vitamin B12 Urine Creatinine Crossmatch 05/04/16 05/04/16 05/04/16 04:31 04:31 04:31 WBC 19.8 H RBC 2.90 L Hgb 7.8 L Hct 23.8 L MCV 82 L MCH 27 L MCHC RDW 17.9 H Plt Count 504 H Lymph % (Auto) Randall % (Auto) Lymph # Randall # Baso # Seg Neutrophils % Seg Neuts % (Manual) Lymphocytes % (Manual) 11.0 L Monocytes % (Manual) 8.0 H Seg Neutrophils # Seg Neutrophils # Man 13.3 H Lymphocytes # (Manual) Monocytes # (Manual) 1.6 H Basophils # (Manual) Percent Retic PT INR APTT Heparin Anti-Xa Level 0.15 L POC ABG pH POC ABG pCO2 POC ABG pO2 Sodium 146 H Potassium Chloride Carbon Dioxide BUN 30 H Creatinine 0.7 L Glucose 321 H POC Glucose Calcium 8.3 L Phosphorus Iron TIBC Lactate Dehydrogenase Total Creatine Kinase NT-Pro-B Natriuret Pep Total Protein Albumin Hkpzz-7-Mtsszayap Owmdv-0-Ucgxchoup Beta Globulins PEP Interpretation Cholesterol LDL Cholesterol Direct Vitamin B12 Urine Creatinine Crossmatch
--- NOTE | 2016-05-04 09:44 | XRay Report ---
PORTABLE CHEST INDICATION: Fever. COMPARISON: 04/29/2016 FINDINGS: Portable, frontal chest radiograph now demonstrates better inspiration with clear lung bases. No pleural effusions or CHF. Normal cardiomediastinal silhouette. Stable tracheostomy tube, aortic knob calcifications, EKG leads and osseous structures. CONCLUSION: No acute disease, stable. Thank you for the opportunity to participate in this patient's care.
[2016-05-04] MEDS ORDERED: LEVEMIR SUB-Q SCH (10:00)
[2016-05-04 10:55] LABS: Bacteria,Urine 1+ /HPF (Negative); Bilirubin,Urine NEG (Negative); Blood,Urine SM (Negative); Ketones,Urine NEG (Negative); Leukocyte Esterase,Urine LG (Negative); Mucus,Urine FEW /HPF; Nitrite,Urine NEG (Negative)
[2016-05-04 10:56] LABS: WBC,Urine > 182.0 /HPF (0.0-6.0)
[2016-05-04] MEDS ORDERED: LEVEMIR SUB-Q ONE (12:00)
--- NOTE | 2016-05-04 17:00 | Progress Note ---
Assessment and Plan Assessment and plan: 1. Acute respiratory failure. Patient reintubated on 04/17/16. Continue mechanical ventilation per pulmonary. Tracheostomy on 04/29/16. Continue CPAP trials as per pulmonary; cotn to have temp spikes; off antibiotics;f/u repeat blood c/s as per pulmonary 2. Acute CVA -right cerebellum; subacute infarct in the right cerebellar hemisphere with associated edema and mass effect as previously described. Patient also with multiple areas of acute infarct in the left occipital and frontal lobes that are most likely embolic. LIZZIE done- No thrombus but decreased flow- cotn coumadin and heparin as bridge 3. Encephalopathy. EEG normal. Etiology likely secondary to CVA +/- hypertension. supportive care 4. Accelerated hypertension- now BP controlled; cont antihypertensive medications 5. CAD-stable; contn meds 6. . Seizures-continue Keppra. EEG normal. 7. Type 2 diabetes mellitus-. Glycemic control; cotn current insulin regime. 8. History of aortic dissection status post repair. 9. Oropharyngeal dysphagia. Patient failed swallow evaluation. Status post PEG placement on 04/17. Cont PEG feeds 10. DVT prophylaxis-on heparin drip. 11. GI prophylaxis-Pepcid CCT exclusive of all other billable procedures 35 minutes Hospitalist Physical - Constitutional Vitals: Temp Pulse Resp BP Pulse Ox 98.8 F 98 H 12 104/66 100 05/04/16 12:00 05/04/16 16:41 05/04/16 16:41 05/04/16 16:23 05/04/16 16:41 General appearance: Present: no acute distress, other (tracheostomy) Results - Labs CBC & Chem 7: 05/04/16 04:31 05/04/16 04:31 Labs: Laboratory Last Values WBC 19.8 K/mm3 (4.5-11.0) H 05/04/16 04:31 RBC 2.90 M/mm3 (3.65-5.03) L 05/04/16 04:31 Hgb 7.8 gm/dl (11.8-15.2) L 05/04/16 04:31 Hct 23.8 % (35.5-45.6) L 05/04/16 04:31 MCV 82 fl (84-94) L 05/04/16 04:31 MCH 27 pg (28-32) L 05/04/16 04:31 MCHC 33 % (32-34) 05/04/16 04:31 RDW 17.9 % (13.2-15.2) H 05/04/16 04:31 Plt Count 504 K/mm3 (140-440) H 05/04/16 04:31 Lymph % (Auto) 8.0 % (13.4-35.0) L 05/02/16 04:48 [place] % (Auto) 13.6 % (0.0-7.3) H 05/02/16 04:48 Eos % (Auto) 0.2 % (0.0-4.3) 05/02/16 04:48 Baso % (Auto) 0.7 % (0.0-1.8) 05/02/16 04:48 Lymph # 1.4 K/mm3 (1.2-5.4) 05/02/16 04:48 [place] # 2.3 K/mm3 (0.0-0.8) H 05/02/16 04:48 Eos # 0.0 K/mm3 (0.0-0.4) 05/02/16 04:48 Baso # 0.1 K/mm3 (0.0-0.1) 05/02/16 04:48 Add Manual Diff Complete 05/04/16 04:31 Total Counted 100 05/04/16 04:31 Seg Neutrophils % 77.5 % (40.0-70.0) H 05/02/16 04:48 Seg Neuts % (Manual) 67.0 % (40.0-70.0) 05/04/16 04:31 Band Neutrophils % 14.0 % 05/04/16 04:31 Lymphocytes % (Manual) 11.0 % (13.4-35.0) L 05/04/16 04:31 Reactive Lymphs % (Man) 0 % 05/04/16 04:31 Monocytes % (Manual) 8.0 % (0.0-7.3) H 05/04/16 04:31 Eosinophils % (Manual) 0 % (0.0-4.3) 05/04/16 04:31 Basophils % (Manual) 1.0 % (0.0-1.8) 05/03/16 04:31 Metamyelocytes % 0 % 05/04/16 04:31 Myelocytes % 0 % 05/04/16 04:31 Promyelocytes % 0 % 05/04/16 04:31 Blast Cells % 0 % 05/04/16 04:31 Nucleated RBC % Not Reportable 05/04/16 04:31 Seg Neutrophils # 13.4 K/mm3 (1.8-7.7) H 05/02/16 04:48 Seg Neutrophils # Man 13.3 K/mm3 (1.8-7.7) H 05/04/16 04:31 Band Neutrophils # 2.8 K/mm3 05/04/16 04:31 Lymphocytes # (Manual) 2.2 K/mm3 (1.2-5.4) 05/04/16 04:31 Abs React Lymphs (Man) 0.0 K/mm3 05/04/16 04:31 Monocytes # (Manual) 1.6 K/mm3 (0.0-0.8) H 05/04/16 04:31 Eosinophils # (Manual) 0.0 K/mm3 (0.0-0.4) 05/04/16 04:31 Basophils # (Manual) 0.0 K/mm3 (0.0-0.1) 05/04/16 04:31 Metamyelocytes # 0.0 K/mm3 05/04/16 04:31 Myelocytes # 0.0 K/mm3 05/04/16 04:31 Promyelocytes # 0.0 K/mm3 05/04/16 04:31 Blast Cells # 0.0 K/mm3 05/04/16 04:31 WBC Morphology Not Reportable 05/04/16 04:31 Hypersegmented Neuts Few 05/04/16 04:31 Hyposegmented Neuts Not Reportable 05/04/16 04:31 Hypogranular Neuts Not Reportable 05/04/16 04:31 Smudge Cells Not Reportable 05/04/16 04:31 Toxic Granulation Not Reportable 05/04/16 04:31 Toxic Vacuolation Not Reportable 05/04/16 04:31 Dohle Bodies Not Reportable 05/04/16 04:31 Pelger-Huet Anomaly Not Reportable 05/04/16 04:31 Corina Rods Not Reportable 05/04/16 04:31 Platelet Estimate Appears increased 05/04/16 04:31 Clumped Platelets Not Reportable 05/04/16 04:31 Plt Clumps, EDTA Not Reportable 05/04/16 04:31 Large Platelets Not Reportable 05/04/16 04:31 Giant Platelets Rare 05/04/16 04:31 Platelet Satelliting Not Reportable 05/04/16 04:31 Plt Morphology Comment Not Reportable 05/04/16 04:31 RBC Morphology Not Reportable 05/04/16 04:31 Dimorphic RBCs Not Reportable 05/04/16 04:31 Polychromasia Rare 05/04/16 04:31 Hypochromasia Not Reportable 05/04/16 04:31 Poikilocytosis Not Reportable 05/04/16 04:31 Anisocytosis 1+ 05/04/16 04:31 Microcytosis Not Reportable 05/04/16 04:31 Macrocytosis Not Reportable 05/04/16 04:31 Spherocytes Not Reportable 05/04/16 04:31 Pappenheimer Bodies Not Reportable 05/04/16 04:31 Sickle Cells Not Reportable 05/04/16 04:31 Target Cells Not Reportable 05/04/16 04:31 Tear Drop Cells Not Reportable 05/04/16 04:31 Ovalocytes Not Reportable 05/04/16 04:31 Helmet Cells Not Reportable 05/04/16 04:31 [place] Bodies Not Reportable 05/04/16 04:31 [place] Rings Not Reportable 05/04/16 04:31 [place] Cells Not Reportable 05/04/16 04:31 Bite Cells Not Reportable 05/04/16 04:31 Crenated Cell Not Reportable 05/04/16 04:31 Elliptocytes Not Reportable 05/04/16 04:31 Acanthocytes (Spur) Not Reportable 05/04/16 04:31 Rouleaux Not Reportable 05/04/16 04:31 Hemoglobin C Crystals Not Reportable 05/04/16 04:31 Schistocytes Not Reportable 05/04/16 04:31 Malaria parasites Not Reportable 05/04/16 04:31 Percent Retic 3.68 % (0.78-2.58) H 04/29/16 10:16 [place] Bodies Not Reportable 05/04/16 04:31 Hem Pathologist Commnt No 05/04/16 04:31 PT 15.9 Sec. (12.2-14.9) H 04/23/16 10:45 INR 1.28 (0.87-1.13) H 04/23/16 10:45 APTT 42.1 Sec. (24.2-36.6) H 04/04/16 09:55 Heparin Anti-Xa Level 0.15 U.I./ml (0.3-0.7) L 05/04/16 04:31 POC ABG pH 7.519 (7.35-7.45) H 04/30/16 04:32 POC ABG pCO2 33.6 (35-45) L 04/30/16 04:32 POC ABG pO2 79 (80-105) L 04/30/16 04:32 POC ABG HCO3 27.4 04/30/16 04:32 POC ABG Total CO2 28 04/30/16 04:32 POC ABG O2 Sat 97 04/30/16 04:32 POC ABG Base Excess 5 04/30/16 04:32 VBG pH 7.418 (7.320-7.420) 03/24/16 14:00 FiO2 25 % 04/30/16 04:32 Sodium 146 mmol/L (137-145) H 05/04/16 04:31 Potassium 3.8 mmol/L (3.6-5.0) 05/04/16 04:31 Chloride 106.3 mmol/L (98-107) 05/04/16 04:31 Carbon Dioxide 28 mmol/L (22-30) 05/04/16 04:31 Anion Gap 16 mmol/L 05/04/16 04:31 BUN 30 mg/dL (9-20) H 05/04/16 04:31 Creatinine 0.7 mg/dL (0.8-1.5) L 05/04/16 04:31 Estimated GFR > 60 ml/min 05/04/16 04:31 BUN/Creatinine Ratio 42.85 % 05/04/16 04:31 Glucose 321 mg/dL (75-100) H 05/04/16 04:31 POC Glucose 303 (70-105) H 05/04/16 11:57 Hemoglobin A1c 9.6 % (4-6) H 03/24/16 14:00 Lactic Acid 1.6 mmol/L (0.7-2.0) 04/17/16 12:17 Calcium 8.3 mg/dL (8.4-10.2) L 05/04/16 04:31 Phosphorus 2.3 mg/dL (2.5-4.5) L D 03/30/16 04:00 Magnesium 1.9 mg/dL (1.7-2.3) 03/30/16 04:00 Iron 10 ug/dL (49-181) L 04/29/16 10:16 TIBC 138 mcg/dL (250-450) L 04/29/16 10:16 Ferritin 336.4 ng/mL (13.0-400.0) 04/29/16 10:16 Total Bilirubin < 0.2 mg/dL (0.1-1.2) 04/27/16 04:21 AST 18 units/L (5-40) 04/27/16 04:21 ALT 39 units/L (7-56) 04/27/16 04:21 Alkaline Phosphatase 103 units/L (35-129) 04/27/16 04:21 Lactate Dehydrogenase 204 units/L (91-180) H 04/29/16 10:16 Total Creatine Kinase 356 units/L (55-170) H 03/28/16 13:29 Troponin T < 0.010 ng/mL (0.00-0.029) 03/28/16 13:29 NT-Pro-B Natriuret Pep 897.9 pg/mL (0-900) 04/03/16 04:10 Serum Total Protein 7.1 g/dL (6.1-8.1) 03/25/16 13:00 Total Protein 6.0 g/dL (6.3-8.2) L 04/27/16 04:21 Albumin 2.0 g/dL (3.9-5) L 04/27/16 04:21 Albumin/Globulin Ratio 0.5 % 04/27/16 04:21 [id number] See scanned report 03/31/16 12:20 [id number]-0-Qhtlzctkd See scanned report 03/31/16 12:20 Beta Globulins See scanned report 03/31/16 12:20 Bgtr-0-[id number] 2.46 mg/L (<=2.51) 03/25/16 13:00 Gamma Globulins See scanned report 03/31/16 12:20 Abnorm Protein Band 1 see below (()) 03/25/16 13:00 PEP Interpretation See scanned report 03/31/16 12:20 Triglycerides 88 mg/dL (2-149) 03/24/16 17:58 Cholesterol 221 mg/dL (50-199) H 03/24/16 17:58 LDL Cholesterol Direct 146 mg/dL (50-130) H 03/24/16 17:58 HDL Cholesterol 58 mg/dL (40-59) 03/24/16 17:58 Cholesterol/HDL Ratio 3.81 % 03/24/16 17:58 Vitamin B12 1005 pg/mL (211-911) H 04/29/16 10:16 Folate 12.78 ng/mL (7.3-26.0) 04/29/16 10:16 Urine Color Yellow (Yellow) 05/04/16 10:20 Urine Turbidity Cloudy (Clear) 05/04/16 10:20 Urine pH 5.0 (5.0-7.0) 05/04/16 10:20 Ur Specific [place] 1.017 (1.003-1.030) 05/04/16 10:20 Urine Protein 100 mg/dl mg/dL (Negative) 05/04/16 10:20 Urine Glucose (UA) >=500 mg/dL (Negative) 05/04/16 10:20 Urine Ketones Neg mg/dL (Negative) 05/04/16 10:20 Urine Blood Sm (Negative) 05/04/16 10:20 Urine Nitrite Neg (Negative) 05/04/16 10:20 Urine Bilirubin Neg (Negative) 05/04/16 10:20 Urine Urobilinogen 2.0 mg/dL (<2.0) 05/04/16 10:20 Ur Leukocyte Esterase Lg (Negative) 05/04/16 10:20 Urine WBC (Auto) > 182.0 /HPF (0.0-6.0) H 05/04/16 10:20 Urine RBC (Auto) 13.0 /HPF (0.0-6.0) 05/04/16 10:20 U Epithel Cells (Auto) < 1.0 /HPF (0-13.0) 05/04/16 10:20 Urine Bacteria (Auto) 1+ /HPF (Negative) 05/04/16 10:20 Urine WBC Clumps 3+ /HPF 01/03/17 10:20 Hyaline Casts 1 /LPF 03/24/16 14:27 Urine Mucus Few /HPF 05/04/16 10:20 Urine Yeast (Budding) 1+ /HPF 05/04/16 10:20 Ur Random Creatinine See scanned report 03/31/16 12:20 U Random Total Protein See scanned report 03/31/16 12:20 Urine Creatinine 85.5 mg/dL (0.1-20.0) H 04/20/16 11:50 Protein/Creatinin Ratio See scanned report 03/31/16 12:20 Urine Sodium 17 mEq/L 04/20/16 11:50 U Abnormal Prot Band 1 See scanned report 03/31/16 12:20 U Abnormal Prot Band 2 See scanned report 03/31/16 12:20 U Abnormal Prot Band 3 See scanned report 03/31/16 12:20 Ketones 1.0 mg/dL (0.2-2.8) 03/24/16 14:00 Blood Type A POSITIVE 04/29/16 10:05 Antibody Screen Negative 04/29/16 10:05 Crossmatch See Detail 04/29/16 10:05
[2016-05-04] MEDS: MAXIPIME/NS 1 GM/100 ML 100 ML IV SCH (22:09)
[2016-05-05] MEDS: NOVOLOG SUB-Q SCH ×4 (00:19→17:14)
[2016-05-05] MEDS: DUONEB 0.5 MG-3 MG/3 ML SOLN IH SCH ×4 (02:28→20:19)
[2016-05-05 05:04] LABS: Hematocrit 23.9 % (35.5-45.6); Hemoglobin 7.6 gm/dl (11.8-15.2); Mean Corpuscular HGB Conc 32 % (32-34); Mean Corpuscular Hemoglobin 26 pg (28-32); Mean Corpuscular Volume 82 fl (84-94); Platelet Count 526 K/mm3 (140-440); Red Blood Count 2.92 M/mm3 (3.65-5.03); Red Cell Distribution Width 17.9 % (13.2-15.2)
[2016-05-05 05:05] LABS: White Blood Count 20.9 K/mm3 (4.5-11.0)
[2016-05-05 05:33] LABS: Anion Gap 17 mmol/L; BUN/Creatinine Ratio 42.85; Blood Urea Nitrogen 30 mg/dL (9-20); Calcium 8.1 mg/dL (8.4-10.2); Carbon Dioxide 27 mmol/L (22-30); Glucose 250 mg/dL (75-100); Potassium 3.7 mmol/L (3.6-5.0); Sodium 146 mmol/L (137-145)
[2016-05-05 06:29] LABS: Basophils % (Manual) 0 % (0.0-1.8); Blastocytes % (Manual) 0 %; Eosinophils % (Manual) 0 % (0.0-4.3)
[2016-05-05 06:30] LABS: Anisocytosis 1+; Diff Status Complete; Giant Platelets Rare; Hypersegmented Neutrophils Few; Hypochromasia 1+; Platelet Estimate Appears Increased; Smudge Cells Few; Target Cells Rare
[2016-05-05] MEDS: MAXIPIME/NS 1 GM/100 ML 100 ML IV SCH (07:20)
[2016-05-05] MEDS: PEPCID PO SCH ×2 (09:26→21:16)
[2016-05-05] MEDS: CORDARONE PO SCH (09:26)
[2016-05-05] MEDS: NORMODYNE PO SCH ×3 (09:26→21:16)
[2016-05-05] MEDS: ZESTRIL PO SCH ×2 (09:26→23:00)
[2016-05-05] MEDS: KEPPRA PO SCH ×2 (09:26→21:15)
[2016-05-05] MEDS: BABY ASPIRIN PO SCH (09:27)
[2016-05-05] MEDS: NORVASC PO SCH (09:27)
[2016-05-05] MEDS ORDERED: LEVEMIR SUB-Q SCH (10:00)
--- NOTE | 2016-05-05 10:40 | Progress Note ---
Assessment and Plan 61 y/o male with acute encephalopathy, secondary to embolic strokes, now with acute respiratory failure requiring re-intubation. 1. Fever: Still spiking. Cultures pending. Abx started by night doc, but not sure exactly what we are treating. Hold for now. CXR was clear with no evidence of acute disease. 2. Given loss of volumes on trach, will perform bedside bronchoscopy to evaluate airway. From speaking with RT, they feel patient may need an XLT. Will visualize prior to calling surgery to reassess situation. 3. Continue PSV trials as tolerated 4. Case management working on funding and possible placement CCT 31 minutes. Subjective Date of service: 05/05/16 Principal diagnosis: CVA, acute respiratory failure Interval history: Continues to have fever. No family at bedside this am. Spoke with RT and trach is very positional for the last several days. Patient will lose significant volumes if not placed correctly. Also with some blood in tubing, likely secondary to trauma from suctioning as RT has trouble at times passing the suction catheter. Objective Vital Signs - 12hr 05/04/16 05/04/16 05/05/16 23:01 23:36 00:00 Temperature 100.5 F H Pulse Rate 88 87 88 Pulse Rate [ Anterior Bilateral Throughout] Respiratory 20 20 Rate Respiratory Rate [Anterior Bilateral Throughout] Respiratory Rate [ Generalized] Blood Pressure 131/74 131/74 122/73 O2 Sat by Pulse 100 100 100 Oximetry O2 Sat by Pulse Oximetry [ Assessment] 05/05/16 05/05/16 05/05/16 00:17 00:21 01:01 Temperature Pulse Rate 90 88 89 Pulse Rate [ Anterior Bilateral Throughout] Respiratory 20 20 23 Rate Respiratory Rate [Anterior Bilateral Throughout] Respiratory 18 Rate [ Generalized] Blood Pressure 122/73 122/73 O2 Sat by Pulse 98 100 100 Oximetry O2 Sat by Pulse Oximetry [ Assessment] 05/05/16 05/05/16 05/05/16 01:13 02:01 02:21 Temperature Pulse Rate 88 91 H 87 Pulse Rate [ Anterior Bilateral Throughout] Respiratory 17 19 19 Rate Respiratory Rate [Anterior Bilateral Throughout] Respiratory Rate [ Generalized] Blood Pressure 122/73 127/74 127/74 O2 Sat by Pulse 100 98 99 Oximetry O2 Sat by Pulse Oximetry [ Assessment] 05/05/16 05/05/16 05/05/16 02:25 02:31 02:45 Temperature Pulse Rate Pulse Rate [ 90 92 H Anterior Bilateral Throughout] Respiratory Rate Respiratory 20 18 Rate [Anterior Bilateral Throughout] Respiratory Rate [ Generalized] Blood Pressure O2 Sat by Pulse 100 Oximetry O2 Sat by Pulse Oximetry [ Assessment] 05/05/16 05/05/16 05/05/16 02:47 03:00 04:00 Temperature 99.7 F H Pulse Rate 86 87 Pulse Rate [ Anterior Bilateral Throughout] Respiratory 26 H 16 Rate Respiratory Rate [Anterior Bilateral Throughout] Respiratory Rate [ Generalized] Blood Pressure 127/74 126/71 O2 Sat by Pulse 100 100 Oximetry O2 Sat by Pulse 98 Oximetry [ Assessment] 05/05/16 05/05/16 05/05/16 04:01 04:25 04:27 Temperature 100.5 F H Pulse Rate 90 99 H Pulse Rate [ Anterior Bilateral Throughout] Respiratory 21 20 Rate Respiratory Rate [Anterior Bilateral Throughout] Respiratory Rate [ Generalized] Blood Pressure 126/71 126/71 O2 Sat by Pulse 100 100 98 Oximetry O2 Sat by Pulse Oximetry [ Assessment] 05/05/16 05/05/16 05/05/16 04:49 04:53 04:54 Temperature Pulse Rate 99 H 96 H 98 H Pulse Rate [ Anterior Bilateral Throughout] Respiratory 20 22 Rate Respiratory Rate [Anterior Bilateral Throughout] Respiratory Rate [ Generalized] Blood Pressure 127/73 127/73 127/73 O2 Sat by Pulse 100 100 100 Oximetry O2 Sat by Pulse Oximetry [ Assessment] 05/05/16 05/05/16 05/05/16 05:01 06:00 07:01 Temperature Pulse Rate 99 H 99 H 99 H Pulse Rate [ Anterior Bilateral Throughout] Respiratory 11 L 20 21 Rate Respiratory Rate [Anterior Bilateral Throughout] Respiratory Rate [ Generalized] Blood Pressure 127/73 132/80 132/80 O2 Sat by Pulse 100 100 100 Oximetry O2 Sat by Pulse Oximetry [ Assessment] 05/05/16 05/05/16 05/05/16 07:09 08:00 08:01 Temperature 100.9 F H Pulse Rate 97 H 106 H Pulse Rate [ Anterior Bilateral Throughout] Respiratory 24 30 H Rate Respiratory Rate [Anterior Bilateral Throughout] Respiratory Rate [ Generalized] Blood Pressure 132/80 134/81 O2 Sat by Pulse 100 100 Oximetry O2 Sat by Pulse Oximetry [ Assessment] 05/05/16 05/05/16 05/05/16 08:02 08:05 09:00 Temperature Pulse Rate 106 H 102 H Pulse Rate [ 105 H Anterior Bilateral Throughout] Respiratory 27 H Rate Respiratory 20 Rate [Anterior Bilateral Throughout] Respiratory Rate [ Generalized] Blood Pressure 134/81 131/79 O2 Sat by Pulse 100 100 Oximetry O2 Sat by Pulse 100 Oximetry [ Assessment] 05/05/16 05/05/16 09:26 09:27 Temperature Pulse Rate 101 H Pulse Rate [ Anterior Bilateral Throughout] Respiratory Rate Respiratory Rate [Anterior Bilateral Throughout] Respiratory Rate [ Generalized] Blood Pressure 131/79 131/79 O2 Sat by Pulse Oximetry O2 Sat by Pulse Oximetry [ Assessment] Constitutional: no acute distress, lethargic, other (opens eyes to tactile stimuli but not following commands on vent ac 12 fio2 25% tv 500) Eyes: non-icteric ENT: other (tracheotomy) Neck: supple Effort: normal Ascultation: Bilateral: clear, rhonchi (occasional) Percussion: Bilateral: not dull Cardiovascular: regular rate and rhythm Gastrointestinal: normoactive bowel sounds, soft, non-tender Extremities: no cyanosis, no edema Neurologic: other (GCS 4 on vent) CBC and BMP: 05/05/16 04:13 05/05/16 04:13 ABG, PT/INR, D-dimer: ABG POC ABG pH 7.519 (7.35-7.45) H 04/30/16 04:32 POC ABG pCO2 33.6 (35-45) L 04/30/16 04:32 POC ABG pO2 79 (80-105) L 04/30/16 04:32 POC ABG HCO3 27.4 04/30/16 04:32 POC ABG Total CO2 28 04/30/16 04:32 POC ABG O2 Sat 97 04/30/16 04:32 PT/INR, D-dimer PT 15.9 Sec. (12.2-14.9) H 04/23/16 10:45 INR 1.28 (0.87-1.13) H 04/23/16 10:45 Abnormal lab findings: Abnormal Labs 03/24/16 03/24/16 03/24/16 17:58 20:25 23:23 WBC RBC Hgb Hct MCV MCH MCHC RDW Plt Count Lymph % (Auto) [place] % (Auto) Lymph # [place] # Baso # Seg Neutrophils % Seg Neuts % (Manual) Lymphocytes % (Manual) Monocytes % (Manual) Seg Neutrophils # Seg Neutrophils # Man Lymphocytes # (Manual) Monocytes # (Manual) Basophils # (Manual) Percent Retic PT INR APTT Heparin Anti-Xa Level POC ABG pH POC ABG pCO2 POC ABG pO2 Sodium 169 H* Potassium 3.5 L Chloride 130.3 H Carbon Dioxide BUN 28 H Creatinine 1.8 H Glucose POC Glucose 112 H Calcium Phosphorus Iron TIBC Lactate Dehydrogenase Total Creatine Kinase NT-Pro-B Natriuret Pep Total Protein Albumin Jwqkq-5-Pxemcssep Dzrzr-5-Ykvljuqde Beta Globulins PEP Interpretation Cholesterol 221 H LDL Cholesterol Direct 146 H Vitamin B12 Urine WBC (Auto) Urine Creatinine Crossmatch 03/25/16 03/25/16 03/25/16 05:56 05:56 05:56 WBC 21.3 H RBC 6.32 H Hgb 16.7 H Hct 52.7 H MCV 83 L MCH 27 L MCHC RDW Plt Count Lymph % (Auto) [place] % (Auto) Lymph # [place] # Baso # Seg Neutrophils % Seg Neuts % (Manual) 91.0 H Lymphocytes % (Manual) 4.0 L Monocytes % (Manual) Seg Neutrophils # Seg Neutrophils # Man 19.4 H Lymphocytes # (Manual) 0.9 L Monocytes # (Manual) 0.9 H Basophils # (Manual) Percent Retic PT INR APTT Heparin Anti-Xa Level POC ABG pH POC ABG pCO2 POC ABG pO2 Sodium 172 H* Potassium 3.5 L Chloride 130.4 H Carbon Dioxide BUN 29 H Creatinine 1.8 H Glucose 187 H POC Glucose Calcium Phosphorus Iron TIBC Lactate Dehydrogenase 460 H Total Creatine Kinase NT-Pro-B Natriuret Pep Total Protein Albumin Ttfuu-2-Otmuwwglo Upulj-9-Qxjqbdmab Beta Globulins PEP Interpretation Cholesterol LDL Cholesterol Direct Vitamin B12 Urine WBC (Auto) Urine Creatinine Crossmatch 03/25/16 03/25/16 03/25/16 07:55 12:19 13:00 WBC RBC Hgb Hct MCV MCH MCHC RDW Plt Count Lymph % (Auto) [place] % (Auto) Lymph # [place] # Baso # Seg Neutrophils % Seg Neuts % (Manual) Lymphocytes % (Manual) Monocytes % (Manual) Seg Neutrophils # Seg Neutrophils # Man Lymphocytes # (Manual) Monocytes # (Manual) Basophils # (Manual) Percent Retic PT INR APTT Heparin Anti-Xa Level POC ABG pH POC ABG pCO2 POC ABG pO2 Sodium Potassium Chloride Carbon Dioxide BUN Creatinine Glucose POC Glucose 231 H 314 H Calcium Phosphorus Iron TIBC Lactate Dehydrogenase Total Creatine Kinase NT-Pro-B Natriuret Pep Total Protein Albumin 3.4 L Rgpwf-7-Qnkukresr 0.4 H Qascu-6-Uxrekjztz 1.1 H Beta Globulins 0.6 H PEP Interpretation see below H Cholesterol LDL Cholesterol Direct Vitamin B12 Urine WBC (Auto) Urine Creatinine Crossmatch 03/25/16 03/25/16 03/26/16 16:41 22:45 08:32 WBC RBC Hgb Hct MCV MCH MCHC RDW Plt Count Lymph % (Auto) [place] % (Auto) Lymph # [place] # Baso # Seg Neutrophils % Seg Neuts % (Manual) Lymphocytes % (Manual) Monocytes % (Manual) Seg Neutrophils # Seg Neutrophils # Man Lymphocytes # (Manual) Monocytes # (Manual) Basophils # (Manual) Percent Retic PT INR APTT Heparin Anti-Xa Level POC ABG pH POC ABG pCO2 POC ABG pO2 Sodium Potassium Chloride Carbon Dioxide BUN Creatinine Glucose POC Glucose 444 H 326 H 360 H Calcium Phosphorus Iron TIBC Lactate Dehydrogenase Total Creatine Kinase NT-Pro-B Natriuret Pep Total Protein Albumin Mcvus-8-Twdblolqm Hmxac-8-Vsuoiwtnk Beta Globulins PEP Interpretation Cholesterol LDL Cholesterol Direct Vitamin B12 Urine WBC (Auto) Urine Creatinine Crossmatch 03/26/16 03/26/16 03/26/16 12:38 15:33 15:47 WBC RBC Hgb Hct MCV MCH MCHC RDW Plt Count Lymph % (Auto) [place] % (Auto) Lymph # [place] # Baso # Seg Neutrophils % Seg Neuts % (Manual) Lymphocytes % (Manual) Monocytes % (Manual) Seg Neutrophils # Seg Neutrophils # Man Lymphocytes # (Manual) Monocytes # (Manual) Basophils # (Manual) Percent Retic PT INR APTT Heparin Anti-Xa Level POC ABG pH 7.511 H POC ABG pCO2 26.5 L POC ABG pO2 70 L Sodium Potassium Chloride Carbon Dioxide BUN Creatinine Glucose POC Glucose 280 H 174 H Calcium Phosphorus Iron TIBC Lactate Dehydrogenase Total Creatine Kinase NT-Pro-B Natriuret Pep Total Protein Albumin Wqbgf-6-Xqquaowex Eyrrq-1-Ugleamuqg Beta Globulins PEP Interpretation Cholesterol LDL Cholesterol Direct Vitamin B12 Urine WBC (Auto) Urine Creatinine Crossmatch 03/26/16 03/26/16 03/26/16 16:47 16:47 18:51 WBC 14.0 H RBC 5.17 H Hgb Hct MCV MCH 26 L MCHC 31 L RDW Plt Count 139 L Lymph % (Auto) [place] % (Auto) Lymph # [place] # Baso # Seg Neutrophils % Seg Neuts % (Manual) Lymphocytes % (Manual) Monocytes % (Manual) Seg Neutrophils # Seg Neutrophils # Man Lymphocytes # (Manual) Monocytes # (Manual) Basophils # (Manual) Percent Retic PT INR APTT Heparin Anti-Xa Level POC ABG pH POC ABG pCO2 33.9 L POC ABG pO2 150 H Sodium 164 H* Potassium 3.4 L Chloride 128.5 H Carbon Dioxide BUN 30 H Creatinine 2.2 H Glucose 121 H POC Glucose Calcium 8.1 L Phosphorus Iron TIBC Lactate Dehydrogenase Total Creatine Kinase NT-Pro-B Natriuret Pep Total Protein Albumin Szfsa-1-Ckitpjwlv Syvox-2-Pnclsxxrz Beta Globulins PEP Interpretation Cholesterol LDL Cholesterol Direct Vitamin B12 Urine WBC (Auto) Urine Creatinine Crossmatch 03/27/16 03/27/16 03/27/16 02:19 05:47 06:02 WBC RBC Hgb Hct MCV MCH MCHC RDW Plt Count Lymph % (Auto) [place] % (Auto) Lymph # [place] # Baso # Seg Neutrophils % Seg Neuts % (Manual) Lymphocytes % (Manual) Monocytes % (Manual) Seg Neutrophils # Seg Neutrophils # Man Lymphocytes # (Manual) Monocytes # (Manual) Basophils # (Manual) Percent Retic PT INR APTT Heparin Anti-Xa Level POC ABG pH POC ABG pCO2 27.3 L 30.3 L POC ABG pO2 50 L 112 H Sodium 158 H Potassium Chloride 126.7 H Carbon Dioxide 20 L BUN 25 H Creatinine 1.7 H Glucose POC Glucose Calcium 7.0 L Phosphorus Iron TIBC Lactate Dehydrogenase Total Creatine Kinase NT-Pro-B Natriuret Pep Total Protein Albumin Vledi-0-Oextlwche Eravg-7-Vrcuntlsj Beta Globulins PEP Interpretation Cholesterol LDL Cholesterol Direct Vitamin B12 Urine WBC (Auto) Urine Creatinine Crossmatch 03/27/16 03/27/16 03/27/16 07:51 09:20 11:45 WBC 14.2 H RBC Hgb Hct MCV 83 L MCH 27 L MCHC RDW Plt Count 113 L Lymph % (Auto) [place] % (Auto) Lymph # [place] # Baso # Seg Neutrophils % Seg Neuts % (Manual) Lymphocytes % (Manual) Monocytes % (Manual) Seg Neutrophils # Seg Neutrophils # Man Lymphocytes # (Manual) Monocytes # (Manual) Basophils # (Manual) Percent Retic PT INR APTT Heparin Anti-Xa Level POC ABG pH POC ABG pCO2 POC ABG pO2 Sodium Potassium Chloride Carbon Dioxide BUN Creatinine Glucose POC Glucose 124 H 241 H Calcium Phosphorus Iron TIBC Lactate Dehydrogenase Total Creatine Kinase NT-Pro-B Natriuret Pep Total Protein Albumin Nefvm-2-Iekjyrrop Ndiwe-2-Trlhtoycb Beta Globulins PEP Interpretation Cholesterol LDL Cholesterol Direct Vitamin B12 Urine WBC (Auto) Urine Creatinine Crossmatch 03/27/16 03/27/16 03/28/16 16:39 22:03 03:29 WBC RBC Hgb Hct MCV MCH MCHC RDW Plt Count Lymph % (Auto) [place] % (Auto) Lymph # [place] # Baso # Seg Neutrophils % Seg Neuts % (Manual) Lymphocytes % (Manual) Monocytes % (Manual) Seg Neutrophils # Seg Neutrophils # Man Lymphocytes # (Manual) Monocytes # (Manual) Basophils # (Manual) Percent Retic PT INR APTT Heparin Anti-Xa Level POC ABG pH POC ABG pCO2 POC ABG pO2 Sodium Potassium Chloride Carbon Dioxide BUN Creatinine Glucose POC Glucose 266 H 167 H 241 H Calcium Phosphorus Iron TIBC Lactate Dehydrogenase Total Creatine Kinase NT-Pro-B Natriuret Pep Total Protein Albumin Anqze-1-Omcxkairt Iqner-3-Dposvvuph Beta Globulins PEP Interpretation Cholesterol LDL Cholesterol Direct Vitamin B12 Urine WBC (Auto) Urine Creatinine Crossmatch 03/28/16 03/28/16 03/28/16 05:00 05:00 05:00 WBC RBC Hgb Hct MCV 83 L MCH 27 L MCHC RDW Plt Count 106 L Lymph % (Auto) [place] % (Auto) 10.1 H Lymph # [place] # 1.0 H Baso # Seg Neutrophils % 75.1 H Seg Neuts % (Manual) Lymphocytes % (Manual) Monocytes % (Manual) Seg Neutrophils # Seg Neutrophils # Man Lymphocytes # (Manual) Monocytes # (Manual) Basophils # (Manual) Percent Retic PT INR APTT Heparin Anti-Xa Level POC ABG pH POC ABG pCO2 POC ABG pO2 Sodium 147 H D Potassium 3.1 L D Chloride 112.3 H Carbon Dioxide 21 L BUN Creatinine Glucose 208 H POC Glucose Calcium 7.0 L Phosphorus 2.2 L Iron TIBC Lactate Dehydrogenase Total Creatine Kinase NT-Pro-B Natriuret Pep Total Protein Albumin Vhpmz-7-Drzenbakk Fjtcj-2-Oatvqgyev Beta Globulins PEP Interpretation Cholesterol LDL Cholesterol Direct Vitamin B12 Urine WBC (Auto) Urine Creatinine Crossmatch 03/28/16 03/28/16 03/28/16 05:14 08:41 10:56 WBC RBC Hgb Hct MCV MCH MCHC RDW Plt Count Lymph % (Auto) [place] % (Auto) Lymph # [place] # Baso # Seg Neutrophils % Seg Neuts % (Manual) Lymphocytes % (Manual) Monocytes % (Manual) Seg Neutrophils # Seg Neutrophils # Man Lymphocytes # (Manual) Monocytes # (Manual) Basophils # (Manual) Percent Retic PT INR APTT Heparin Anti-Xa Level POC ABG pH 7.457 H POC ABG pCO2 29.7 L 27.7 L POC ABG pO2 Sodium Potassium Chloride Carbon Dioxide BUN Creatinine Glucose POC Glucose 228 H Calcium Phosphorus Iron TIBC Lactate Dehydrogenase Total Creatine Kinase NT-Pro-B Natriuret Pep Total Protein Albumin Quzym-7-Qyagtznjf Dmljj-4-Mrcsqqgkd Beta Globulins PEP Interpretation Cholesterol LDL Cholesterol Direct Vitamin B12 Urine WBC (Auto) Urine Creatinine Crossmatch 03/28/16 03/28/16 03/28/16 11:37 13:29 16:22 WBC RBC Hgb Hct MCV MCH MCHC RDW Plt Count Lymph % (Auto) [place] % (Auto) Lymph # [place] # Baso # Seg Neutrophils % Seg Neuts % (Manual) Lymphocytes % (Manual) Monocytes % (Manual) Seg Neutrophils # Seg Neutrophils # Man Lymphocytes # (Manual) Monocytes # (Manual) Basophils # (Manual) Percent Retic PT INR APTT Heparin Anti-Xa Level POC ABG pH POC ABG pCO2 POC ABG pO2 Sodium Potassium Chloride Carbon Dioxide BUN Creatinine Glucose POC Glucose 226 H 200 H Calcium Phosphorus Iron TIBC Lactate Dehydrogenase Total Creatine Kinase 356 H NT-Pro-B Natriuret Pep Total Protein Albumin Mzcxn-6-Ojqkghonf Hvnss-1-Blmldrykl Beta Globulins PEP Interpretation Cholesterol LDL Cholesterol Direct Vitamin B12 Urine WBC (Auto) Urine Creatinine Crossmatch 03/28/16 03/29/16 03/29/16 21:48 04:50 04:50 WBC RBC Hgb 11.5 L Hct 35.3 L MCV 81 L MCH 26 L MCHC RDW Plt Count 97 L Lymph % (Auto) [place] % (Auto) 11.7 H Lymph # [place] # 1.1 H Baso # Seg Neutrophils % Seg Neuts % (Manual) Lymphocytes % (Manual) Monocytes % (Manual) Seg Neutrophils # Seg Neutrophils # Man Lymphocytes # (Manual) Monocytes # (Manual) Basophils # (Manual) Percent Retic PT INR APTT Heparin Anti-Xa Level POC ABG pH POC ABG pCO2 POC ABG pO2 Sodium 136 L D Potassium 3.3 L Chloride Carbon Dioxide 20 L BUN Creatinine Glucose 386 H POC Glucose 188 H Calcium 6.8 L Phosphorus 1.6 L D Iron TIBC Lactate Dehydrogenase Total Creatine Kinase NT-Pro-B Natriuret Pep Total Protein Albumin Fkmhz-7-Pvrosevdn Fghdq-1-Oedskirnz Beta Globulins PEP Interpretation Cholesterol LDL Cholesterol Direct Vitamin B12 Urine WBC (Auto) Urine Creatinine Crossmatch 03/29/16 03/29/16 03/29/16 08:10 11:12 16:09 WBC RBC Hgb Hct MCV MCH MCHC RDW Plt Count Lymph % (Auto) [place] % (Auto) Lymph # [place] # Baso # Seg Neutrophils % Seg Neuts % (Manual) Lymphocytes % (Manual) Monocytes % (Manual) Seg Neutrophils # Seg Neutrophils # Man Lymphocytes # (Manual) Monocytes # (Manual) Basophils # (Manual) Percent Retic PT INR APTT Heparin Anti-Xa Level POC ABG pH POC ABG pCO2 POC ABG pO2 Sodium Potassium Chloride Carbon Dioxide BUN Creatinine Glucose POC Glucose 230 H 180 H 46 L Calcium Phosphorus Iron TIBC Lactate Dehydrogenase Total Creatine Kinase NT-Pro-B Natriuret Pep Total Protein Albumin Hezhx-8-Kfidcpdbf Rffpb-4-Ogfubfynq Beta Globulins PEP Interpretation Cholesterol LDL Cholesterol Direct Vitamin B12 Urine WBC (Auto) Urine Creatinine Crossmatch 03/29/16 03/29/16 03/30/16 16:12 18:15 02:53 WBC RBC Hgb Hct MCV MCH MCHC RDW Plt Count Lymph % (Auto) [place] % (Auto) Lymph # [place] # Baso # Seg Neutrophils % Seg Neuts % (Manual) Lymphocytes % (Manual) Monocytes % (Manual) Seg Neutrophils # Seg Neutrophils # Man Lymphocytes # (Manual) Monocytes # (Manual) Basophils # (Manual) Percent Retic PT INR APTT Heparin Anti-Xa Level POC ABG pH POC ABG pCO2 POC ABG pO2 Sodium Potassium Chloride Carbon Dioxide BUN Creatinine Glucose POC Glucose 52 L 118 H 130 H Calcium Phosphorus Iron TIBC Lactate Dehydrogenase Total Creatine Kinase NT-Pro-B Natriuret Pep Total Protein Albumin Roiza-3-Insktbwir Oktlb-3-Wgmxpyfcd Beta Globulins PEP Interpretation Cholesterol LDL Cholesterol Direct Vitamin B12 Urine WBC (Auto) Urine Creatinine Crossmatch 03/30/16 03/30/16 03/30/16 04:00 04:00 05:29 WBC RBC Hgb Hct MCV 81 L MCH 26 L MCHC RDW Plt Count 116 L Lymph % (Auto) 10.8 L [place] % (Auto) 13.1 H Lymph # 1.0 L [place] # 1.3 H Baso # Seg Neutrophils % 74.2 H Seg Neuts % (Manual) Lymphocytes % (Manual) Monocytes % (Manual) Seg Neutrophils # Seg Neutrophils # Man Lymphocytes # (Manual) Monocytes # (Manual) Basophils # (Manual) Percent Retic PT INR APTT Heparin Anti-Xa Level POC ABG pH 7.522 H POC ABG pCO2 22.7 L POC ABG pO2 137 H Sodium 147 H D Potassium Chloride 115.5 H Carbon Dioxide 20 L BUN Creatinine Glucose 116 H POC Glucose Calcium 7.6 L Phosphorus 2.3 L D Iron TIBC Lactate Dehydrogenase Total Creatine Kinase NT-Pro-B Natriuret Pep Total Protein Albumin Dirde-1-Kyzpmphkj Zgdih-2-Vjiymeybb Beta Globulins PEP Interpretation Cholesterol LDL Cholesterol Direct Vitamin B12 Urine WBC (Auto) Urine Creatinine Crossmatch 03/30/16 03/30/16 03/30/16 05:47 08:05 08:59 WBC RBC Hgb Hct MCV MCH MCHC RDW Plt Count Lymph % (Auto) [place] % (Auto) Lymph # [place] # Baso # Seg Neutrophils % Seg Neuts % (Manual) Lymphocytes % (Manual) Monocytes % (Manual) Seg Neutrophils # Seg Neutrophils # Man Lymphocytes # (Manual) Monocytes # (Manual) Basophils # (Manual) Percent Retic PT INR APTT Heparin Anti-Xa Level POC ABG pH POC ABG pCO2 26.2 L POC ABG pO2 115 H Sodium Potassium Chloride Carbon Dioxide BUN Creatinine Glucose POC Glucose 138 H 171 H Calcium Phosphorus Iron TIBC Lactate Dehydrogenase Total Creatine Kinase NT-Pro-B Natriuret Pep Total Protein Albumin Dhcuo-0-Zbqozdurc Jatnz-6-Ocbnpgsez Beta Globulins PEP Interpretation Cholesterol LDL Cholesterol Direct Vitamin B12 Urine WBC (Auto) Urine Creatinine Crossmatch 03/30/16 03/30/16 03/30/16 12:11 12:11 16:39 WBC RBC Hgb Hct MCV MCH MCHC RDW Plt Count Lymph % (Auto) [place] % (Auto) Lymph # [place] # Baso # Seg Neutrophils % Seg Neuts % (Manual) Lymphocytes % (Manual) Monocytes % (Manual) Seg Neutrophils # Seg Neutrophils # Man Lymphocytes # (Manual) Monocytes # (Manual) Basophils # (Manual) Percent Retic PT INR APTT Heparin Anti-Xa Level POC ABG pH 7.476 H POC ABG pCO2 29.0 L POC ABG pO2 Sodium Potassium Chloride Carbon Dioxide BUN Creatinine Glucose POC Glucose 142 H 59 L Calcium Phosphorus Iron TIBC Lactate Dehydrogenase Total Creatine Kinase NT-Pro-B Natriuret Pep Total Protein Albumin Tgpez-0-Ymzrhkabw Aohzu-8-Xyrgoavsw Beta Globulins PEP Interpretation Cholesterol LDL Cholesterol Direct Vitamin B12 Urine WBC (Auto) Urine Creatinine Crossmatch 03/30/16 03/30/16 03/31/16 18:41 21:59 05:02 WBC RBC Hgb Hct MCV MCH MCHC RDW Plt Count Lymph % (Auto) [place] % (Auto) Lymph # [place] # Baso # Seg Neutrophils % Seg Neuts % (Manual) Lymphocytes % (Manual) Monocytes % (Manual) Seg Neutrophils # Seg Neutrophils # Man Lymphocytes # (Manual) Monocytes # (Manual) Basophils # (Manual) Percent Retic PT INR APTT Heparin Anti-Xa Level POC ABG pH 7.519 H POC ABG pCO2 21.8 L POC ABG pO2 142 H Sodium Potassium Chloride Carbon Dioxide BUN Creatinine Glucose POC Glucose 145 H 154 H Calcium Phosphorus Iron TIBC Lactate Dehydrogenase Total Creatine Kinase NT-Pro-B Natriuret Pep Total Protein Albumin Xzvos-8-Bqpqrvumw Uxpfu-8-Wjzarzwgh Beta Globulins PEP Interpretation Cholesterol LDL Cholesterol Direct Vitamin B12 Urine WBC (Auto) Urine Creatinine Crossmatch 03/31/16 03/31/16 03/31/16 05:15 05:15 05:15 WBC 13.4 H RBC 5.21 H Hgb Hct MCV 81 L MCH 26 L MCHC RDW Plt Count Lymph % (Auto) 9.5 L [place] % (Auto) 14.0 H Lymph # [place] # 1.9 H Baso # Seg Neutrophils % 75.0 H Seg Neuts % (Manual) Lymphocytes % (Manual) Monocytes % (Manual) Seg Neutrophils # 10.1 H Seg Neutrophils # Man Lymphocytes # (Manual) Monocytes # (Manual) Basophils # (Manual) Percent Retic PT INR APTT Heparin Anti-Xa Level POC ABG pH POC ABG pCO2 POC ABG pO2 Sodium Potassium Chloride 108.5 H Carbon Dioxide 19 L BUN Creatinine Glucose 188 H POC Glucose Calcium Phosphorus Iron TIBC Lactate Dehydrogenase Total Creatine Kinase NT-Pro-B Natriuret Pep 1089 H Total Protein Albumin Afkmh-9-Ruplzrdle Xbvhs-9-Juxdtmfnj Beta Globulins PEP Interpretation Cholesterol LDL Cholesterol Direct Vitamin B12 Urine WBC (Auto) Urine Creatinine Crossmatch 03/31/16 03/31/16 03/31/16 07:23 11:12 15:20 WBC RBC Hgb Hct MCV MCH MCHC RDW Plt Count Lymph % (Auto) [place] % (Auto) Lymph # [place] # Baso # Seg Neutrophils % Seg Neuts % (Manual) Lymphocytes % (Manual) Monocytes % (Manual) Seg Neutrophils # Seg Neutrophils # Man Lymphocytes # (Manual) Monocytes # (Manual) Basophils # (Manual) Percent Retic PT INR APTT Heparin Anti-Xa Level POC ABG pH POC ABG pCO2 POC ABG pO2 Sodium Potassium Chloride Carbon Dioxide BUN Creatinine Glucose POC Glucose 233 H 228 H 208 H Calcium Phosphorus Iron TIBC Lactate Dehydrogenase Total Creatine Kinase NT-Pro-B Natriuret Pep Total Protein Albumin Gzwfv-4-Esooykqnx Iiwqj-4-Muvkpgzeo Beta Globulins PEP Interpretation Cholesterol LDL Cholesterol Direct Vitamin B12 Urine WBC (Auto) Urine Creatinine Crossmatch 03/31/16 04/01/16 04/01/16 21:27 04:41 05:35 WBC 12.1 H RBC Hgb Hct MCV 81 L MCH 26 L MCHC RDW Plt Count Lymph % (Auto) 8.5 L [place] % (Auto) 14.0 H Lymph # 1.0 L [place] # 1.7 H Baso # Seg Neutrophils % 76.2 H Seg Neuts % (Manual) Lymphocytes % (Manual) Monocytes % (Manual) Seg Neutrophils # 9.2 H Seg Neutrophils # Man Lymphocytes # (Manual) Monocytes # (Manual) Basophils # (Manual) Percent Retic PT INR APTT Heparin Anti-Xa Level POC ABG pH 7.455 H POC ABG pCO2 31.0 L POC ABG pO2 Sodium Potassium Chloride Carbon Dioxide BUN Creatinine Glucose POC Glucose 162 H Calcium Phosphorus Iron TIBC Lactate Dehydrogenase Total Creatine Kinase NT-Pro-B Natriuret Pep Total Protein Albumin Rztsb-1-Rulgaregf Lvjxs-4-Nsabwcmqx Beta Globulins PEP Interpretation Cholesterol LDL Cholesterol Direct Vitamin B12 Urine WBC (Auto) Urine Creatinine Crossmatch 04/01/16 04/01/16 04/01/16 05:35 08:44 12:49 WBC RBC Hgb Hct MCV MCH MCHC RDW Plt Count Lymph % (Auto) [place] % (Auto) Lymph # [place] # Baso # Seg Neutrophils % Seg Neuts % (Manual) Lymphocytes % (Manual) Monocytes % (Manual) Seg Neutrophils # Seg Neutrophils # Man Lymphocytes # (Manual) Monocytes # (Manual) Basophils # (Manual) Percent Retic PT INR APTT Heparin Anti-Xa Level POC ABG pH POC ABG pCO2 POC ABG pO2 Sodium Potassium Chloride Carbon Dioxide BUN Creatinine Glucose 256 H POC Glucose 257 H 279 H Calcium 8.0 L Phosphorus Iron TIBC Lactate Dehydrogenase Total Creatine Kinase NT-Pro-B Natriuret Pep 1205 H Total Protein Albumin Fkvpr-7-Kgqlguiny Ponwn-4-Slxqhanlk Beta Globulins PEP Interpretation Cholesterol LDL Cholesterol Direct Vitamin B12 Urine WBC (Auto) Urine Creatinine Crossmatch 04/01/16 04/02/16 04/02/16 18:12 00:42 04:17 WBC RBC Hgb Hct MCV MCH MCHC RDW Plt Count Lymph % (Auto) [place] % (Auto) Lymph # [place] # Baso # Seg Neutrophils % Seg Neuts % (Manual) Lymphocytes % (Manual) Monocytes % (Manual) Seg Neutrophils # Seg Neutrophils # Man Lymphocytes # (Manual) Monocytes # (Manual) Basophils # (Manual) Percent Retic PT INR APTT Heparin Anti-Xa Level POC ABG pH 7.582 H POC ABG pCO2 26.8 L POC ABG pO2 Sodium Potassium Chloride Carbon Dioxide BUN Creatinine Glucose POC Glucose 168 H 282 H Calcium Phosphorus Iron TIBC Lactate Dehydrogenase Total Creatine Kinase NT-Pro-B Natriuret Pep Total Protein Albumin Yfdqc-4-Dnqtkkdmb Iencf-6-Fqkzocrvc Beta Globulins PEP Interpretation Cholesterol LDL Cholesterol Direct Vitamin B12 Urine WBC (Auto) Urine Creatinine Crossmatch 04/02/16 04/02/16 04/02/16 05:00 05:00 06:27 WBC 12.4 H RBC Hgb Hct MCV 81 L MCH 26 L MCHC RDW Plt Count Lymph % (Auto) 6.4 L [place] % (Auto) 13.3 H Lymph # 0.8 L [place] # 1.7 H Baso # Seg Neutrophils % 79.4 H Seg Neuts % (Manual) Lymphocytes % (Manual) Monocytes % (Manual) Seg Neutrophils # 9.9 H Seg Neutrophils # Man Lymphocytes # (Manual) Monocytes # (Manual) Basophils # (Manual) Percent Retic PT INR APTT Heparin Anti-Xa Level POC ABG pH POC ABG pCO2 POC ABG pO2 Sodium 146 H Potassium Chloride Carbon Dioxide BUN Creatinine Glucose 334 H POC Glucose 317 H Calcium 8.0 L Phosphorus Iron TIBC Lactate Dehydrogenase Total Creatine Kinase NT-Pro-B Natriuret Pep Total Protein Albumin Vhrmu-5-Rsdhvowwa Ntqyc-0-Pawysdjyz Beta Globulins PEP Interpretation Cholesterol LDL Cholesterol Direct Vitamin B12 Urine WBC (Auto) Urine Creatinine Crossmatch 04/02/16 04/02/16 04/02/16 11:51 13:10 17:24 WBC RBC Hgb Hct MCV MCH MCHC RDW Plt Count Lymph % (Auto) [place] % (Auto) Lymph # [place] # Baso # Seg Neutrophils % Seg Neuts % (Manual) Lymphocytes % (Manual) Monocytes % (Manual) Seg Neutrophils # Seg Neutrophils # Man Lymphocytes # (Manual) Monocytes # (Manual) Basophils # (Manual) Percent Retic PT INR APTT Heparin Anti-Xa Level POC ABG pH 7.518 H POC ABG pCO2 POC ABG pO2 Sodium Potassium Chloride Carbon Dioxide BUN Creatinine Glucose POC Glucose 278 H 195 H Calcium Phosphorus Iron TIBC Lactate Dehydrogenase Total Creatine Kinase NT-Pro-B Natriuret Pep Total Protein Albumin Dysoo-0-Cgvuhyimt Zwmta-9-Bnebswhqr Beta Globulins PEP Interpretation Cholesterol LDL Cholesterol Direct Vitamin B12 Urine WBC (Auto) Urine Creatinine Crossmatch 04/03/16 04/03/16 04/03/16 00:18 04:10 04:10 WBC 14.3 H RBC Hgb Hct MCV 81 L MCH 26 L MCHC RDW Plt Count Lymph % (Auto) 9.0 L [place] % (Auto) 10.7 H Lymph # [place] # 1.5 H Baso # 0.2 H Seg Neutrophils % 78.5 H Seg Neuts % (Manual) Lymphocytes % (Manual) Monocytes % (Manual) Seg Neutrophils # 11.3 H Seg Neutrophils # Man Lymphocytes # (Manual) Monocytes # (Manual) Basophils # (Manual) Percent Retic PT INR APTT Heparin Anti-Xa Level POC ABG pH POC ABG pCO2 POC ABG pO2 Sodium 148 H Potassium Chloride 108.1 H Carbon Dioxide BUN 21 H Creatinine Glucose 227 H POC Glucose 144 H Calcium 8.2 L Phosphorus Iron TIBC Lactate Dehydrogenase Total Creatine Kinase NT-Pro-B Natriuret Pep Total Protein Albumin Mjijq-0-Tikfimfqu Ozazt-7-Qermvtjnp Beta Globulins PEP Interpretation Cholesterol LDL Cholesterol Direct Vitamin B12 Urine WBC (Auto) Urine Creatinine Crossmatch 04/03/16 04/03/16 04/04/16 11:14 17:10 04:00 WBC 14.5 H RBC Hgb Hct MCV 81 L MCH 26 L MCHC RDW Plt Count Lymph % (Auto) 7.2 L [place] % (Auto) 7.6 H Lymph # 1.0 L [place] # 1.1 H Baso # Seg Neutrophils % 84.5 H Seg Neuts % (Manual) Lymphocytes % (Manual) Monocytes % (Manual) Seg Neutrophils # 12.3 H Seg Neutrophils # Man Lymphocytes # (Manual) Monocytes # (Manual) Basophils # (Manual) Percent Retic PT INR APTT Heparin Anti-Xa Level POC ABG pH POC ABG pCO2 POC ABG pO2 Sodium Potassium Chloride Carbon Dioxide BUN Creatinine Glucose POC Glucose 267 H 212 H Calcium Phosphorus Iron TIBC Lactate Dehydrogenase Total Creatine Kinase NT-Pro-B Natriuret Pep Total Protein Albumin Yjzpi-4-Ahhhkfruz Onfuf-7-Erllkzrvq Beta Globulins PEP Interpretation Cholesterol LDL Cholesterol Direct Vitamin B12 Urine WBC (Auto) Urine Creatinine Crossmatch 04/04/16 04/04/16 04/04/16 05:00 09:55 09:55 WBC RBC Hgb 11.5 L Hct MCV MCH MCHC RDW Plt Count Lymph % (Auto) [place] % (Auto) Lymph # [place] # Baso # Seg Neutrophils % Seg Neuts % (Manual) Lymphocytes % (Manual) Monocytes % (Manual) Seg Neutrophils # Seg Neutrophils # Man Lymphocytes # (Manual) Monocytes # (Manual) Basophils # (Manual) Percent Retic PT INR APTT 42.1 H Heparin Anti-Xa Level POC ABG pH POC ABG pCO2 POC ABG pO2 Sodium 146 H Potassium Chloride Carbon Dioxide BUN 22 H Creatinine Glucose 128 H POC Glucose Calcium Phosphorus Iron TIBC Lactate Dehydrogenase Total Creatine Kinase NT-Pro-B Natriuret Pep Total Protein Albumin Wxdux-8-Jujeboboy Rqfzd-3-Fbmhgpcse Beta Globulins PEP Interpretation Cholesterol LDL Cholesterol Direct Vitamin B12 Urine WBC (Auto) Urine Creatinine Crossmatch 04/04/16 04/04/16 04/04/16 11:45 17:49 17:55 WBC RBC Hgb Hct MCV MCH MCHC RDW Plt Count Lymph % (Auto) [place] % (Auto) Lymph # [place] # Baso # Seg Neutrophils % Seg Neuts % (Manual) Lymphocytes % (Manual) Monocytes % (Manual) Seg Neutrophils # Seg Neutrophils # Man Lymphocytes # (Manual) Monocytes # (Manual) Basophils # (Manual) Percent Retic PT INR APTT Heparin Anti-Xa Level 1.19 H POC ABG pH POC ABG pCO2 POC ABG pO2 Sodium Potassium Chloride Carbon Dioxide BUN Creatinine Glucose POC Glucose 231 H 186 H Calcium Phosphorus Iron TIBC Lactate Dehydrogenase Total Creatine Kinase NT-Pro-B Natriuret Pep Total Protein Albumin Kravc-8-Yfacnjrrk Nexew-6-Sicqpqths Beta Globulins PEP Interpretation Cholesterol LDL Cholesterol Direct Vitamin B12 Urine WBC (Auto) Urine Creatinine Crossmatch 04/05/16 04/05/16 04/05/16 00:35 05:32 05:42 WBC RBC Hgb Hct MCV MCH MCHC RDW Plt Count Lymph % (Auto) [place] % (Auto) Lymph # [place] # Baso # Seg Neutrophils % Seg Neuts % (Manual) Lymphocytes % (Manual) Monocytes % (Manual) Seg Neutrophils # Seg Neutrophils # Man Lymphocytes # (Manual) Monocytes # (Manual) Basophils # (Manual) Percent Retic PT INR APTT Heparin Anti-Xa Level POC ABG pH 7.491 H POC ABG pCO2 POC ABG pO2 Sodium Potassium Chloride Carbon Dioxide BUN Creatinine Glucose POC Glucose 192 H 242 H Calcium Phosphorus Iron TIBC Lactate Dehydrogenase Total Creatine Kinase NT-Pro-B Natriuret Pep Total Protein Albumin Thgze-9-Ybgcxycsy Spkse-9-Ijjtlvqyk Beta Globulins PEP Interpretation Cholesterol LDL Cholesterol Direct Vitamin B12 Urine WBC (Auto) Urine Creatinine Crossmatch 04/05/16 04/05/16 04/05/16 06:20 06:20 12:19 WBC 13.9 H RBC Hgb 11.6 L Hct MCV 81 L MCH 26 L MCHC RDW Plt Count Lymph % (Auto) 9.6 L [place] % (Auto) 8.7 H Lymph # [place] # 1.2 H Baso # Seg Neutrophils % 80.9 H Seg Neuts % (Manual) Lymphocytes % (Manual) Monocytes % (Manual) Seg Neutrophils # 11.3 H Seg Neutrophils # Man Lymphocytes # (Manual) Monocytes # (Manual) Basophils # (Manual) Percent Retic PT INR APTT Heparin Anti-Xa Level POC ABG pH POC ABG pCO2 POC ABG pO2 Sodium 148 H Potassium Chloride Carbon Dioxide BUN 23 H Creatinine Glucose 242 H POC Glucose 187 H Calcium Phosphorus Iron TIBC Lactate Dehydrogenase Total Creatine Kinase NT-Pro-B Natriuret Pep Total Protein Albumin Upduz-7-Jkzahevoj Qjmmp-7-Dqdozngme Beta Globulins PEP Interpretation Cholesterol LDL Cholesterol Direct Vitamin B12 Urine WBC (Auto) Urine Creatinine Crossmatch 04/05/16 04/05/16 04/06/16 17:10 23:45 05:23 WBC 13.0 H RBC Hgb Hct MCV 82 L MCH 26 L MCHC 31 L RDW Plt Count Lymph % (Auto) 6.7 L [place] % (Auto) 8.3 H Lymph # 0.9 L [place] # 1.1 H Baso # Seg Neutrophils % 84.6 H Seg Neuts % (Manual) Lymphocytes % (Manual) Monocytes % (Manual) Seg Neutrophils # 11.0 H Seg Neutrophils # Man Lymphocytes # (Manual) Monocytes # (Manual) Basophils # (Manual) Percent Retic PT INR APTT Heparin Anti-Xa Level POC ABG pH POC ABG pCO2 POC ABG pO2 Sodium Potassium Chloride Carbon Dioxide BUN Creatinine Glucose POC Glucose 169 H 202 H Calcium Phosphorus Iron TIBC Lactate Dehydrogenase Total Creatine Kinase NT-Pro-B Natriuret Pep Total Protein Albumin Tqlqf-1-Sbacpxfut Sxjgm-1-Tjgnbekpb Beta Globulins PEP Interpretation Cholesterol LDL Cholesterol Direct Vitamin B12 Urine WBC (Auto) Urine Creatinine Crossmatch 04/06/16 04/06/16 04/06/16 05:23 05:23 06:11 WBC RBC Hgb Hct MCV MCH MCHC RDW Plt Count Lymph % (Auto) [place] % (Auto) Lymph # [place] # Baso # Seg Neutrophils % Seg Neuts % (Manual) Lymphocytes % (Manual) Monocytes % (Manual) Seg Neutrophils # Seg Neutrophils # Man Lymphocytes # (Manual) Monocytes # (Manual) Basophils # (Manual) Percent Retic PT INR APTT Heparin Anti-Xa Level 0.21 L POC ABG pH POC ABG pCO2 POC ABG pO2 Sodium 153 H Potassium Chloride 111.3 H Carbon Dioxide BUN 22 H Creatinine Glucose 62 L POC Glucose 56 L Calcium Phosphorus Iron TIBC Lactate Dehydrogenase Total Creatine Kinase NT-Pro-B Natriuret Pep Total Protein Albumin Ooqvx-6-Iwjjanvtc Ktjzc-0-Xjwkvmygd Beta Globulins PEP Interpretation Cholesterol LDL Cholesterol Direct Vitamin B12 Urine WBC (Auto) Urine Creatinine Crossmatch 04/06/16 04/06/1616 06:52 11:36 14:58 WBC RBC Hgb Hct MCV MCH MCHC RDW Plt Count Lymph % (Auto) [place] % (Auto) Lymph # [place] # Baso # Seg Neutrophils % Seg Neuts % (Manual) Lymphocytes % (Manual) Monocytes % (Manual) Seg Neutrophils # Seg Neutrophils # Man Lymphocytes # (Manual) Monocytes # (Manual) Basophils # (Manual) Percent Retic PT INR APTT Heparin Anti-Xa Level POC ABG pH POC ABG pCO2 POC ABG pO2 Sodium Potassium Chloride Carbon Dioxide BUN Creatinine Glucose POC Glucose 206 H 139 H 147 H Calcium Phosphorus Iron TIBC Lactate Dehydrogenase Total Creatine Kinase NT-Pro-B Natriuret Pep Total Protein Albumin Oeppv-7-Fthnjgrhl Tqjml-3-Zjmttpuvv Beta Globulins PEP Interpretation Cholesterol LDL Cholesterol Direct Vitamin B12 Urine WBC (Auto) Urine Creatinine Crossmatch 04/06/16 04/06/16 04/06/16 16:03 21:18 23:53 WBC RBC Hgb Hct MCV MCH MCHC RDW Plt Count Lymph % (Auto) [place] % (Auto) Lymph # [place] # Baso # Seg Neutrophils % Seg Neuts % (Manual) Lymphocytes % (Manual) Monocytes % (Manual) Seg Neutrophils # Seg Neutrophils # Man Lymphocytes # (Manual) Monocytes # (Manual) Basophils # (Manual) Percent Retic PT INR APTT Heparin Anti-Xa Level POC ABG pH POC ABG pCO2 POC ABG pO2 Sodium Potassium Chloride Carbon Dioxide BUN Creatinine Glucose POC Glucose 154 H 293 H 301 H Calcium Phosphorus Iron TIBC Lactate Dehydrogenase Total Creatine Kinase NT-Pro-B Natriuret Pep Total Protein Albumin Imbmt-9-Hlpmlzdqw Qenoo-6-Ijbnmujjw Beta Globulins PEP Interpretation Cholesterol LDL Cholesterol Direct Vitamin B12 Urine WBC (Auto) Urine Creatinine Crossmatch 04/07/16 04/07/16 04/07/16 02:30 05:11 05:11 WBC 12.5 H RBC Hgb 11.5 L Hct MCV 82 L MCH 26 L MCHC 31 L RDW Plt Count Lymph % (Auto) [place] % (Auto) Lymph # [place] # Baso # Seg Neutrophils % Seg Neuts % (Manual) Lymphocytes % (Manual) Monocytes % (Manual) Seg Neutrophils # Seg Neutrophils # Man Lymphocytes # (Manual) Monocytes # (Manual) Basophils # (Manual) Percent Retic PT INR APTT Heparin Anti-Xa Level 0.11 L POC ABG pH POC ABG pCO2 POC ABG pO2 Sodium 150 H Potassium Chloride 109.5 H Carbon Dioxide BUN 28 H Creatinine Glucose 264 H POC Glucose Calcium Phosphorus Iron TIBC Lactate Dehydrogenase Total Creatine Kinase NT-Pro-B Natriuret Pep Total Protein Albumin Ouvdv-9-Kgdtpbslf Pgscr-7-Ngdaodqjo Beta Globulins PEP Interpretation Cholesterol LDL Cholesterol Direct Vitamin B12 Urine WBC (Auto) Urine Creatinine Crossmatch 04/07/16 04/07/16 04/07/16 06:46 10:18 11:50 WBC RBC Hgb Hct MCV MCH MCHC RDW Plt Count Lymph % (Auto) [place] % (Auto) Lymph # [place] # Baso # Seg Neutrophils % Seg Neuts % (Manual) Lymphocytes % (Manual) Monocytes % (Manual) Seg Neutrophils # Seg Neutrophils # Man Lymphocytes # (Manual) Monocytes # (Manual) Basophils # (Manual) Percent Retic PT 15.1 H INR 1.20 H APTT Heparin Anti-Xa Level POC ABG pH POC ABG pCO2 POC ABG pO2 Sodium Potassium Chloride Carbon Dioxide BUN Creatinine Glucose POC Glucose 259 H 288 H Calcium Phosphorus Iron TIBC Lactate Dehydrogenase Total Creatine Kinase NT-Pro-B Natriuret Pep Total Protein Albumin Ljgwh-5-Bogdeaphk Kyerd-9-Xdzijvzfs Beta Globulins PEP Interpretation Cholesterol LDL Cholesterol Direct Vitamin B12 Urine WBC (Auto) Urine Creatinine Crossmatch 04/07/16 04/08/16 04/08/16 17:58 01:25 06:49 WBC RBC Hgb Hct MCV MCH MCHC RDW Plt Count Lymph % (Auto) [place] % (Auto) Lymph # [place] # Baso # Seg Neutrophils % Seg Neuts % (Manual) Lymphocytes % (Manual) Monocytes % (Manual) Seg Neutrophils # Seg Neutrophils # Man Lymphocytes # (Manual) Monocytes # (Manual) Basophils # (Manual) Percent Retic PT INR APTT Heparin Anti-Xa Level POC ABG pH POC ABG pCO2 POC ABG pO2 Sodium 156 H Potassium Chloride 114.7 H Carbon Dioxide BUN 33 H Creatinine Glucose 169 H POC Glucose 330 H 146 H Calcium Phosphorus Iron TIBC Lactate Dehydrogenase Total Creatine Kinase NT-Pro-B Natriuret Pep Total Protein Albumin Xqqnl-9-Aqwxsdlzl Cjjxp-5-Xpazonoij Beta Globulins PEP Interpretation Cholesterol LDL Cholesterol Direct Vitamin B12 Urine WBC (Auto) Urine Creatinine Crossmatch 04/08/16 04/08/16 04/08/16 07:34 10:28 10:28 WBC RBC Hgb Hct MCV MCH MCHC RDW Plt Count Lymph % (Auto) [place] % (Auto) Lymph # [place] # Baso # Seg Neutrophils % Seg Neuts % (Manual) Lymphocytes % (Manual) Monocytes % (Manual) Seg Neutrophils # Seg Neutrophils # Man Lymphocytes # (Manual) Monocytes # (Manual) Basophils # (Manual) Percent Retic PT 15.5 H INR 1.24 H APTT Heparin Anti-Xa Level 0.24 L POC ABG pH POC ABG pCO2 POC ABG pO2 Sodium Potassium Chloride Carbon Dioxide BUN Creatinine Glucose POC Glucose 232 H Calcium Phosphorus Iron TIBC Lactate Dehydrogenase Total Creatine Kinase NT-Pro-B Natriuret Pep Total Protein Albumin Duwbc-6-Fawxpuccc Ybkff-9-Lvqzvjrkk Beta Globulins PEP Interpretation Cholesterol LDL Cholesterol Direct Vitamin B12 Urine WBC (Auto) Urine Creatinine Crossmatch 04/08/16 04/08/16 04/09/16 11:36 15:38 00:01 WBC RBC Hgb Hct MCV MCH MCHC RDW Plt Count Lymph % (Auto) [place] % (Auto) Lymph # [place] # Baso # Seg Neutrophils % Seg Neuts % (Manual) Lymphocytes % (Manual) Monocytes % (Manual) Seg Neutrophils # Seg Neutrophils # Man Lymphocytes # (Manual) Monocytes # (Manual) Basophils # (Manual) Percent Retic PT INR APTT Heparin Anti-Xa Level POC ABG pH POC ABG pCO2 POC ABG pO2 Sodium Potassium Chloride Carbon Dioxide BUN Creatinine Glucose POC Glucose 193 H 163 H 180 H Calcium Phosphorus Iron TIBC Lactate Dehydrogenase Total Creatine Kinase NT-Pro-B Natriuret Pep Total Protein Albumin Thbnl-1-Eztevprdj Whxgs-3-Lcnlndcwf Beta Globulins PEP Interpretation Cholesterol LDL Cholesterol Direct Vitamin B12 Urine WBC (Auto) Urine Creatinine Crossmatch 04/09/16 04/09/16 04/09/16 06:17 06:42 06:42 WBC RBC Hgb Hct MCV MCH MCHC RDW Plt Count Lymph % (Auto) [place] % (Auto) Lymph # [place] # Baso # Seg Neutrophils % Seg Neuts % (Manual) Lymphocytes % (Manual) Monocytes % (Manual) Seg Neutrophils # Seg Neutrophils # Man Lymphocytes # (Manual) Monocytes # (Manual) Basophils # (Manual) Percent Retic PT 17.4 H INR 1.43 H APTT Heparin Anti-Xa Level POC ABG pH POC ABG pCO2 POC ABG pO2 Sodium 153 H Potassium Chloride 113.2 H Carbon Dioxide BUN 29 H Creatinine Glucose 301 H POC Glucose 249 H Calcium 8.3 L Phosphorus Iron TIBC Lactate Dehydrogenase Total Creatine Kinase NT-Pro-B Natriuret Pep Total Protein Albumin Eqmxb-8-Hezuujssj Drkzk-0-Mxczmdwxh Beta Globulins PEP Interpretation Cholesterol LDL Cholesterol Direct Vitamin B12 Urine WBC (Auto) Urine Creatinine Crossmatch 04/09/16 04/09/16 04/09/16 07:37 11:26 15:45 WBC RBC Hgb Hct MCV MCH MCHC RDW Plt Count Lymph % (Auto) [place] % (Auto) Lymph # [place] # Baso # Seg Neutrophils % Seg Neuts % (Manual) Lymphocytes % (Manual) Monocytes % (Manual) Seg Neutrophils # Seg Neutrophils # Man Lymphocytes # (Manual) Monocytes # (Manual) Basophils # (Manual) Percent Retic PT INR APTT Heparin Anti-Xa Level POC ABG pH POC ABG pCO2 POC ABG pO2 Sodium Potassium Chloride Carbon Dioxide BUN Creatinine Glucose POC Glucose 283 H 306 H 354 H Calcium Phosphorus Iron TIBC Lactate Dehydrogenase Total Creatine Kinase NT-Pro-B Natriuret Pep Total Protein Albumin Avxgl-0-Edzdpghyw Gcunx-4-Eaarkiqoh Beta Globulins PEP Interpretation Cholesterol LDL Cholesterol Direct Vitamin B12 Urine WBC (Auto) Urine Creatinine Crossmatch 04/10/16 04/10/16 04/10/16 00:53 07:15 07:34 WBC RBC Hgb 11.3 L Hct MCV MCH MCHC RDW Plt Count Lymph % (Auto) [place] % (Auto) Lymph # [place] # Baso # Seg Neutrophils % Seg Neuts % (Manual) Lymphocytes % (Manual) Monocytes % (Manual) Seg Neutrophils # Seg Neutrophils # Man Lymphocytes # (Manual) Monocytes # (Manual) Basophils # (Manual) Percent Retic PT INR APTT Heparin Anti-Xa Level POC ABG pH POC ABG pCO2 POC ABG pO2 Sodium Potassium Chloride Carbon Dioxide BUN Creatinine Glucose POC Glucose 323 H 311 H Calcium Phosphorus Iron TIBC Lactate Dehydrogenase Total Creatine Kinase NT-Pro-B Natriuret Pep Total Protein Albumin Mkadg-3-Lpgvviptd Brvpg-2-Ksgdswvfh Beta Globulins PEP Interpretation Cholesterol LDL Cholesterol Direct Vitamin B12 Urine WBC (Auto) Urine Creatinine Crossmatch 04/10/16 04/10/16 04/10/16 07:34 07:34 11:25 WBC RBC Hgb Hct MCV MCH MCHC RDW Plt Count Lymph % (Auto) [place] % (Auto) Lymph # [place] # Baso # Seg Neutrophils % Seg Neuts % (Manual) Lymphocytes % (Manual) Monocytes % (Manual) Seg Neutrophils # Seg Neutrophils # Man Lymphocytes # (Manual) Monocytes # (Manual) Basophils # (Manual) Percent Retic PT 17.3 H INR 1.42 H APTT Heparin Anti-Xa Level POC ABG pH POC ABG pCO2 POC ABG pO2 Sodium 158 H Potassium Chloride 118.6 H Carbon Dioxide BUN 30 H Creatinine Glucose 330 H POC Glucose 335 H Calcium 8.3 L Phosphorus Iron TIBC Lactate Dehydrogenase Total Creatine Kinase NT-Pro-B Natriuret Pep Total Protein Albumin Kepjp-8-Azyrbctih Exfac-0-Wmgdcykyr Beta Globulins PEP Interpretation Cholesterol LDL Cholesterol Direct Vitamin B12 Urine WBC (Auto) Urine Creatinine Crossmatch 04/10/16 04/11/16 04/11/16 16:21 00:29 07:47 WBC RBC Hgb Hct MCV MCH MCHC RDW Plt Count Lymph % (Auto) [place] % (Auto) Lymph # [place] # Baso # Seg Neutrophils % Seg Neuts % (Manual) Lymphocytes % (Manual) Monocytes % (Manual) Seg Neutrophils # Seg Neutrophils # Man Lymphocytes # (Manual) Monocytes # (Manual) Basophils # (Manual) Percent Retic PT 18.4 H INR 1.53 H APTT Heparin Anti-Xa Level POC ABG pH POC ABG pCO2 POC ABG pO2 Sodium Potassium Chloride Carbon Dioxide BUN Creatinine Glucose POC Glucose 230 H 162 H Calcium Phosphorus Iron TIBC Lactate Dehydrogenase Total Creatine Kinase NT-Pro-B Natriuret Pep Total Protein Albumin Mbqfe-4-Livjkdeyr Cxcft-0-Pnxomfuvt Beta Globulins PEP Interpretation Cholesterol LDL Cholesterol Direct Vitamin B12 Urine WBC (Auto) Urine Creatinine Crossmatch 04/11/16 04/11/16 04/12/16 07:47 11:22 04:54 WBC RBC Hgb 11.0 L Hct 35.0 L MCV MCH MCHC RDW Plt Count Lymph % (Auto) [place] % (Auto) Lymph # [place] # Baso # Seg Neutrophils % Seg Neuts % (Manual) Lymphocytes % (Manual) Monocytes % (Manual) Seg Neutrophils # Seg Neutrophils # Man Lymphocytes # (Manual) Monocytes # (Manual) Basophils # (Manual) Percent Retic PT INR APTT Heparin Anti-Xa Level POC ABG pH POC ABG pCO2 POC ABG pO2 Sodium 155 H Potassium Chloride 114.5 H Carbon Dioxide BUN 23 H Creatinine Glucose 157 H POC Glucose 229 H Calcium Phosphorus Iron TIBC Lactate Dehydrogenase Total Creatine Kinase NT-Pro-B Natriuret Pep Total Protein Albumin Lnigs-9-Ctcotuscm Gyxuy-1-Vyojiszar Beta Globulins PEP Interpretation Cholesterol LDL Cholesterol Direct Vitamin B12 Urine WBC (Auto) Urine Creatinine Crossmatch 04/12/16 04/12/16 04/12/16 04:54 04:54 05:57 WBC RBC Hgb Hct MCV MCH MCHC RDW Plt Count Lymph % (Auto) [place] % (Auto) Lymph # [place] # Baso # Seg Neutrophils % Seg Neuts % (Manual) Lymphocytes % (Manual) Monocytes % (Manual) Seg Neutrophils # Seg Neutrophils # Man Lymphocytes # (Manual) Monocytes # (Manual) Basophils # (Manual) Percent Retic PT 22.5 H INR 1.98 H APTT Heparin Anti-Xa Level 0.19 L POC ABG pH POC ABG pCO2 POC ABG pO2 Sodium 156 H Potassium Chloride 115.4 H Carbon Dioxide BUN 23 H Creatinine Glucose 143 H POC Glucose 194 H Calcium Phosphorus Iron TIBC Lactate Dehydrogenase Total Creatine Kinase NT-Pro-B Natriuret Pep Total Protein Albumin Dohwl-8-Magbapmxs Kmufo-0-Gqiuyxbbp Beta Globulins PEP Interpretation Cholesterol LDL Cholesterol Direct Vitamin B12 Urine WBC (Auto) Urine Creatinine Crossmatch 04/12/16 04/12/16 04/12/16 12:34 19:01 23:30 WBC RBC Hgb Hct MCV MCH MCHC RDW Plt Count Lymph % (Auto) [place] % (Auto) Lymph # [place] # Baso # Seg Neutrophils % Seg Neuts % (Manual) Lymphocytes % (Manual) Monocytes % (Manual) Seg Neutrophils # Seg Neutrophils # Man Lymphocytes # (Manual) Monocytes # (Manual) Basophils # (Manual) Percent Retic PT INR APTT Heparin Anti-Xa Level POC ABG pH POC ABG pCO2 POC ABG pO2 Sodium Potassium Chloride Carbon Dioxide BUN Creatinine Glucose POC Glucose 291 H 235 H 154 H Calcium Phosphorus Iron TIBC Lactate Dehydrogenase Total Creatine Kinase NT-Pro-B Natriuret Pep Total Protein Albumin Exoww-3-Bbzczduqw Vueqi-4-Tujzkuaqo Beta Globulins PEP Interpretation Cholesterol LDL Cholesterol Direct Vitamin B12 Urine WBC (Auto) Urine Creatinine Crossmatch 04/13/16 04/13/16 04/13/16 05:16 05:16 05:28 WBC RBC Hgb Hct MCV MCH MCHC RDW Plt Count Lymph % (Auto) [place] % (Auto) Lymph # [place] # Baso # Seg Neutrophils % Seg Neuts % (Manual) Lymphocytes % (Manual) Monocytes % (Manual) Seg Neutrophils # Seg Neutrophils # Man Lymphocytes # (Manual) Monocytes # (Manual) Basophils # (Manual) Percent Retic PT 27.0 H INR 2.49 H APTT Heparin Anti-Xa Level 0.20 L POC ABG pH POC ABG pCO2 POC ABG pO2 Sodium 150 H Potassium Chloride 110.5 H Carbon Dioxide BUN 21 H Creatinine Glucose 159 H POC Glucose 177 H Calcium Phosphorus Iron TIBC Lactate Dehydrogenase Total Creatine Kinase NT-Pro-B Natriuret Pep Total Protein Albumin Qreay-4-Oemzkzxai Hpphh-7-Zaaxsmqqy Beta Globulins PEP Interpretation Cholesterol LDL Cholesterol Direct Vitamin B12 Urine WBC (Auto) Urine Creatinine Crossmatch 04/13/16 04/13/16 04/14/16 11:30 17:54 00:44 WBC RBC Hgb Hct MCV MCH MCHC RDW Plt Count Lymph % (Auto) [place] % (Auto) Lymph # [place] # Baso # Seg Neutrophils % Seg Neuts % (Manual) Lymphocytes % (Manual) Monocytes % (Manual) Seg Neutrophils # Seg Neutrophils # Man Lymphocytes # (Manual) Monocytes # (Manual) Basophils # (Manual) Percent Retic PT INR APTT Heparin Anti-Xa Level POC ABG pH POC ABG pCO2 POC ABG pO2 Sodium Potassium Chloride Carbon Dioxide BUN Creatinine Glucose POC Glucose 181 H 251 H 237 H Calcium Phosphorus Iron TIBC Lactate Dehydrogenase Total Creatine Kinase NT-Pro-B Natriuret Pep Total Protein Albumin [id number] Beta Globulins PEP Interpretation Cholesterol LDL Cholesterol Direct Vitamin B12 Urine WBC (Auto) Urine Creatinine Crossmatch 04/14/16 04/14/16 04/14/16 05:00 05:42 05:42 WBC RBC Hgb Hct MCV MCH MCHC RDW Plt Count Lymph % (Auto) [place] % (Auto) Lymph # [place] # Baso # Seg Neutrophils % Seg Neuts % (Manual) Lymphocytes % (Manual) Monocytes % (Manual) Seg Neutrophils # Seg Neutrophils # Man Lymphocytes # (Manual) Monocytes # (Manual) Basophils # (Manual) Percent Retic PT 30.3 H INR 2.88 H APTT Heparin Anti-Xa Level 0.27 L POC ABG pH POC ABG pCO2 POC ABG pO2 Sodium Potassium 3.5 L Chloride Carbon Dioxide BUN Creatinine Glucose 160 H POC Glucose Calcium 8.2 L Phosphorus Iron TIBC Lactate Dehydrogenase Total Creatine Kinase NT-Pro-B Natriuret Pep Total Protein Albumin Axcnp-8-Nqefrerok Culct-8-Mllvpuslt Beta Globulins PEP Interpretation Cholesterol LDL Cholesterol Direct Vitamin B12 Urine WBC (Auto) Urine Creatinine Crossmatch 04/14/16 04/14/16 04/14/16 06:02 06:16 09:18 WBC 12.3 H RBC Hgb 11.4 L Hct MCV 82 L MCH 26 L MCHC RDW Plt Count Lymph % (Auto) [place] % (Auto) Lymph # [place] # Baso # Seg Neutrophils % Seg Neuts % (Manual) Lymphocytes % (Manual) Monocytes % (Manual) Seg Neutrophils # Seg Neutrophils # Man Lymphocytes # (Manual) Monocytes # (Manual) Basophils # (Manual) Percent Retic PT INR APTT Heparin Anti-Xa Level POC ABG pH POC ABG pCO2 POC ABG pO2 Sodium Potassium Chloride Carbon Dioxide BUN Creatinine Glucose POC Glucose 156 H 164 H Calcium Phosphorus Iron TIBC Lactate Dehydrogenase Total Creatine Kinase NT-Pro-B Natriuret Pep Total Protein Albumin Aojds-1-Qutaznloh Nxgiv-1-Egnifdjrr Beta Globulins PEP Interpretation Cholesterol LDL Cholesterol Direct Vitamin B12 Urine WBC (Auto) Urine Creatinine Crossmatch 04/14/16 04/15/16 04/15/16 13:58 01:07 06:04 WBC RBC Hgb Hct MCV MCH MCHC RDW Plt Count Lymph % (Auto) [place] % (Auto) Lymph # [place] # Baso # Seg Neutrophils % Seg Neuts % (Manual) Lymphocytes % (Manual) Monocytes % (Manual) Seg Neutrophils # Seg Neutrophils # Man Lymphocytes # (Manual) Monocytes # (Manual) Basophils # (Manual) Percent Retic PT 24.9 H INR 2.25 H APTT Heparin Anti-Xa Level POC ABG pH POC ABG pCO2 POC ABG pO2 Sodium Potassium Chloride Carbon Dioxide BUN Creatinine Glucose POC Glucose 109 H 154 H Calcium Phosphorus Iron TIBC Lactate Dehydrogenase Total Creatine Kinase NT-Pro-B Natriuret Pep Total Protein Albumin Pvebr-4-Kwunbphgv Nrrye-1-Mygvhxxqc Beta Globulins PEP Interpretation Cholesterol LDL Cholesterol Direct Vitamin B12 Urine WBC (Auto) Urine Creatinine Crossmatch 04/15/16 04/15/16 04/16/16 06:08 12:41 00:38 WBC RBC Hgb Hct MCV MCH MCHC RDW Plt Count Lymph % (Auto) [place] % (Auto) Lymph # [place] # Baso # Seg Neutrophils % Seg Neuts % (Manual) Lymphocytes % (Manual) Monocytes % (Manual) Seg Neutrophils # Seg Neutrophils # Man Lymphocytes # (Manual) Monocytes # (Manual) Basophils # (Manual) Percent Retic PT INR APTT Heparin Anti-Xa Level POC ABG pH POC ABG pCO2 POC ABG pO2 Sodium Potassium Chloride Carbon Dioxide BUN Creatinine Glucose POC Glucose 165 H 223 H 216 H Calcium Phosphorus Iron TIBC Lactate Dehydrogenase Total Creatine Kinase NT-Pro-B Natriuret Pep Total Protein Albumin Dacvx-0-Mfebuboxp Rjplh-5-Zxfhvfwyu Beta Globulins PEP Interpretation Cholesterol LDL Cholesterol Direct Vitamin B12 Urine WBC (Auto) Urine Creatinine Crossmatch 04/16/16 04/16/16 04/16/16 05:45 07:09 14:00 WBC RBC Hgb Hct MCV MCH MCHC RDW Plt Count Lymph % (Auto) [place] % (Auto) Lymph # [place] # Baso # Seg Neutrophils % Seg Neuts % (Manual) Lymphocytes % (Manual) Monocytes % (Manual) Seg Neutrophils # Seg Neutrophils # Man Lymphocytes # (Manual) Monocytes # (Manual) Basophils # (Manual) Percent Retic PT 19.4 H INR 1.64 H APTT Heparin Anti-Xa Level 0.10 L POC ABG pH POC ABG pCO2 POC ABG pO2 Sodium Potassium Chloride Carbon Dioxide BUN Creatinine Glucose POC Glucose 207 H 69 L Calcium Phosphorus Iron TIBC Lactate Dehydrogenase Total Creatine Kinase NT-Pro-B Natriuret Pep Total Protein Albumin Fnsxt-9-Uihodyutq Vgyms-6-Hfrxmeruz Beta Globulins PEP Interpretation Cholesterol LDL Cholesterol Direct Vitamin B12 Urine WBC (Auto) Urine Creatinine Crossmatch 04/16/16 04/16/16 04/16/16 17:40 17:52 19:38 WBC RBC Hgb Hct MCV MCH MCHC RDW Plt Count Lymph % (Auto) [place] % (Auto) Lymph # [place] # Baso # Seg Neutrophils % Seg Neuts % (Manual) Lymphocytes % (Manual) Monocytes % (Manual) Seg Neutrophils # Seg Neutrophils # Man Lymphocytes # (Manual) Monocytes # (Manual) Basophils # (Manual) Percent Retic PT INR APTT Heparin Anti-Xa Level 0.26 L POC ABG pH 7.543 H 7.488 H POC ABG pCO2 26.3 L 30.3 L POC ABG pO2 55 L 203 H Sodium Potassium Chloride Carbon Dioxide BUN Creatinine Glucose POC Glucose Calcium Phosphorus Iron TIBC Lactate Dehydrogenase Total Creatine Kinase NT-Pro-B Natriuret Pep Total Protein Albumin [place]-0-Wyjihlhcj Rfrza-1-Ukveocepp Beta Globulins PEP Interpretation Cholesterol LDL Cholesterol Direct Vitamin B12 Urine WBC (Auto) Urine Creatinine Crossmatch 04/17/16 04/17/16 04/17/16 00:04 05:10 05:36 WBC RBC Hgb Hct MCV MCH MCHC RDW Plt Count Lymph % (Auto) [place] % (Auto) Lymph # [place] # Baso # Seg Neutrophils % Seg Neuts % (Manual) Lymphocytes % (Manual) Monocytes % (Manual) Seg Neutrophils # Seg Neutrophils # Man Lymphocytes # (Manual) Monocytes # (Manual) Basophils # (Manual) Percent Retic PT INR APTT Heparin Anti-Xa Level POC ABG pH POC ABG pCO2 32.7 L POC ABG pO2 68 L Sodium Potassium Chloride Carbon Dioxide BUN Creatinine Glucose POC Glucose 113 H 161 H Calcium Phosphorus Iron TIBC Lactate Dehydrogenase Total Creatine Kinase NT-Pro-B Natriuret Pep Total Protein Albumin Rzmxm-3-Vfbylseaw Rfbpd-6-Qkljwcbcz Beta Globulins PEP Interpretation Cholesterol LDL Cholesterol Direct Vitamin B12 Urine WBC (Auto) Urine Creatinine Crossmatch 04/17/16 04/17/16 04/17/16 05:41 08:37 11:46 WBC RBC Hgb Hct MCV MCH MCHC RDW Plt Count Lymph % (Auto) [place] % (Auto) Lymph # [place] # Baso # Seg Neutrophils % Seg Neuts % (Manual) Lymphocytes % (Manual) Monocytes % (Manual) Seg Neutrophils # Seg Neutrophils # Man Lymphocytes # (Manual) Monocytes # (Manual) Basophils # (Manual) Percent Retic PT 17.4 H INR 1.43 H APTT Heparin Anti-Xa Level POC ABG pH POC ABG pCO2 POC ABG pO2 Sodium Potassium Chloride Carbon Dioxide BUN Creatinine Glucose POC Glucose 154 H 138 H Calcium Phosphorus Iron TIBC Lactate Dehydrogenase Total Creatine Kinase NT-Pro-B Natriuret Pep Total Protein Albumin Oevsq-9-Qbpgqjcnz Lxmil-6-Dlgpuyxvy Beta Globulins PEP Interpretation Cholesterol LDL Cholesterol Direct Vitamin B12 Urine WBC (Auto) Urine Creatinine Crossmatch 04/17/16 04/17/16 12 12:17 12:17 21:20 WBC 16.5 H RBC 3.31 L Hgb 8.8 L Hct 26.9 L MCV 81 L MCH 27 L MCHC RDW 15.5 H Plt Count Lymph % (Auto) [place] % (Auto) Lymph # [place] # Baso # Seg Neutrophils % Seg Neuts % (Manual) Lymphocytes % (Manual) 3.0 L Monocytes % (Manual) Seg Neutrophils # Seg Neutrophils # Man 10.1 H Lymphocytes # (Manual) 0.5 L Monocytes # (Manual) Basophils # (Manual) Percent Retic PT INR APTT Heparin Anti-Xa Level 0.14 L POC ABG pH POC ABG pCO2 POC ABG pO2 Sodium Potassium Chloride Carbon Dioxide 21 L BUN 38 H Creatinine 1.8 H D Glucose 131 H POC Glucose Calcium 7.6 L Phosphorus Iron TIBC Lactate Dehydrogenase Total Creatine Kinase NT-Pro-B Natriuret Pep Total Protein Albumin Dhkbr-4-Xdwvmobto Cacyg-0-Rswbtbgqh Beta Globulins PEP Interpretation Cholesterol LDL Cholesterol Direct Vitamin B12 Urine WBC (Auto) Urine Creatinine Crossmatch 04/17/16 04/17/16 04/18/16 23:38 23:41 00:21 WBC RBC Hgb Hct MCV MCH MCHC RDW Plt Count Lymph % (Auto) [place] % (Auto) Lymph # [place] # Baso # Seg Neutrophils % Seg Neuts % (Manual) Lymphocytes % (Manual) Monocytes % (Manual) Seg Neutrophils # Seg Neutrophils # Man Lymphocytes # (Manual) Monocytes # (Manual) Basophils # (Manual) Percent Retic PT INR APTT Heparin Anti-Xa Level POC ABG pH POC ABG pCO2 POC ABG pO2 Sodium Potassium Chloride Carbon Dioxide BUN Creatinine Glucose POC Glucose < 40 L < 40 L 223 H Calcium Phosphorus Iron TIBC Lactate Dehydrogenase Total Creatine Kinase NT-Pro-B Natriuret Pep Total Protein Albumin Otnma-3-Dpneptvbz Hnadm-6-Fmsvbrfdt Beta Globulins PEP Interpretation Cholesterol LDL Cholesterol Direct Vitamin B12 Urine WBC (Auto) Urine Creatinine Crossmatch 04/18/16 04/18/16 04/18/16 05:01 05:20 05:20 WBC 17.6 H RBC 3.44 L Hgb 9.1 L Hct 27.8 L MCV 81 L MCH 26 L MCHC RDW 15.5 H Plt Count Lymph % (Auto) 2.7 L [place] % (Auto) 8.3 H Lymph # 0.5 L [place] # 1.5 H Baso # Seg Neutrophils % 88.4 H Seg Neuts % (Manual) Lymphocytes % (Manual) Monocytes % (Manual) Seg Neutrophils # 15.6 H Seg Neutrophils # Man Lymphocytes # (Manual) Monocytes # (Manual) Basophils # (Manual) Percent Retic PT 17.4 H INR 1.43 H APTT Heparin Anti-Xa Level POC ABG pH 7.528 H POC ABG pCO2 27.9 L POC ABG pO2 Sodium Potassium Chloride Carbon Dioxide BUN Creatinine Glucose POC Glucose Calcium Phosphorus Iron TIBC Lactate Dehydrogenase Total Creatine Kinase NT-Pro-B Natriuret Pep Total Protein Albumin Fcvkv-7-Pcggtndkt Fhskh-5-Tcliucidl Beta Globulins PEP Interpretation Cholesterol LDL Cholesterol Direct Vitamin B12 Urine WBC (Auto) Urine Creatinine Crossmatch 04/18/16 04/18/16 04/18/16 05:20 05:31 06:50 WBC RBC Hgb Hct MCV MCH MCHC RDW Plt Count Lymph % (Auto) [place] % (Auto) Lymph # [place] # Baso # Seg Neutrophils % Seg Neuts % (Manual) Lymphocytes % (Manual) Monocytes % (Manual) Seg Neutrophils # Seg Neutrophils # Man Lymphocytes # (Manual) Monocytes # (Manual) Basophils # (Manual) Percent Retic PT INR APTT Heparin Anti-Xa Level POC ABG pH POC ABG pCO2 POC ABG pO2 Sodium Potassium 3.4 L Chloride Carbon Dioxide 21 L BUN 22 H Creatinine Glucose POC Glucose 61 L 124 H Calcium 8.0 L Phosphorus Iron TIBC Lactate Dehydrogenase Total Creatine Kinase NT-Pro-B Natriuret Pep Total Protein Albumin Jrzwj-3-Drccvjdrd Dyusq-9-Hrhjyidno Beta Globulins PEP Interpretation Cholesterol LDL Cholesterol Direct Vitamin B12 Urine WBC (Auto) Urine Creatinine Crossmatch 04/18/16 04/18/16 04/19/16 17:42 22:40 00:31 WBC RBC Hgb Hct MCV MCH MCHC RDW Plt Count Lymph % (Auto) [place] % (Auto) Lymph # [place] # Baso # Seg Neutrophils % Seg Neuts % (Manual) Lymphocytes % (Manual) Monocytes % (Manual) Seg Neutrophils # Seg Neutrophils # Man Lymphocytes # (Manual) Monocytes # (Manual) Basophils # (Manual) Percent Retic PT INR APTT Heparin Anti-Xa Level < 0.10 L POC ABG pH POC ABG pCO2 POC ABG pO2 Sodium Potassium Chloride Carbon Dioxide BUN Creatinine Glucose POC Glucose 159 H 134 H Calcium Phosphorus Iron TIBC Lactate Dehydrogenase Total Creatine Kinase NT-Pro-B Natriuret Pep Total Protein Albumin Uoggi-3-Vodpgozlm Qspxv-0-Rtwxqsmnp Beta Globulins PEP Interpretation Cholesterol LDL Cholesterol Direct Vitamin B12 Urine WBC (Auto) Urine Creatinine Crossmatch 04/19/16 04/19/16 04/19/16 04:18 04:18 04:25 WBC 19.0 H RBC 3.58 L Hgb 9.3 L Hct 28.8 L MCV 80 L MCH 26 L MCHC RDW 15.5 H Plt Count Lymph % (Auto) 2.8 L [place] % (Auto) 7.4 H Lymph # 0.5 L [place] # 1.4 H Baso # Seg Neutrophils % 89.4 H Seg Neuts % (Manual) Lymphocytes % (Manual) Monocytes % (Manual) Seg Neutrophils # 17.0 H Seg Neutrophils # Man Lymphocytes # (Manual) Monocytes # (Manual) Basophils # (Manual) Percent Retic PT INR APTT Heparin Anti-Xa Level POC ABG pH 7.527 H POC ABG pCO2 27.1 L POC ABG pO2 Sodium Potassium Chloride Carbon Dioxide BUN 22 H Creatinine Glucose 215 H POC Glucose Calcium 8.0 L Phosphorus Iron TIBC Lactate Dehydrogenase Total Creatine Kinase NT-Pro-B Natriuret Pep Total Protein Albumin Geryc-7-Mxdqbwxwq Lmjfc-1-Nehpvmhgj Beta Globulins PEP Interpretation Cholesterol LDL Cholesterol Direct Vitamin B12 Urine WBC (Auto) Urine Creatinine Crossmatch 04/19/16 04/19/16 04/19/16 05:45 08:10 14:08 WBC RBC Hgb Hct MCV MCH MCHC RDW Plt Count Lymph % (Auto) [place] % (Auto) Lymph # [place] # Baso # Seg Neutrophils % Seg Neuts % (Manual) Lymphocytes % (Manual) Monocytes % (Manual) Seg Neutrophils # Seg Neutrophils # Man Lymphocytes # (Manual) Monocytes # (Manual) Basophils # (Manual) Percent Retic PT 22.1 H INR 1.93 H APTT Heparin Anti-Xa Level 0.17 L POC ABG pH POC ABG pCO2 POC ABG pO2 Sodium Potassium Chloride Carbon Dioxide BUN Creatinine Glucose POC Glucose 196 H 318 H Calcium Phosphorus Iron TIBC Lactate Dehydrogenase Total Creatine Kinase NT-Pro-B Natriuret Pep Total Protein Albumin Glujm-9-Mqgxtqlzx Lillv-1-Bkzudygjy Beta Globulins PEP Interpretation Cholesterol LDL Cholesterol Direct Vitamin B12 Urine WBC (Auto) Urine Creatinine Crossmatch 04/19/16 04/20/16 04/20/16 17:27 03:55 03:55 WBC 18.5 H RBC 3.19 L Hgb 8.4 L Hct 25.7 L MCV 80 L MCH 26 L MCHC RDW 15.9 H Plt Count Lymph % (Auto) 4.3 L [place] % (Auto) 10.1 H Lymph # 0.8 L [place] # 1.9 H Baso # Seg Neutrophils % 85.2 H Seg Neuts % (Manual) Lymphocytes % (Manual) Monocytes % (Manual) Seg Neutrophils # 15.8 H Seg Neutrophils # Man Lymphocytes # (Manual) Monocytes # (Manual) Basophils # (Manual) Percent Retic PT 22.0 H INR 1.92 H APTT Heparin Anti-Xa Level 0.14 L POC ABG pH POC ABG pCO2 POC ABG pO2 Sodium Potassium Chloride Carbon Dioxide BUN Creatinine Glucose POC Glucose 230 H Calcium Phosphorus Iron TIBC Lactate Dehydrogenase Total Creatine Kinase NT-Pro-B Natriuret Pep Total Protein Albumin Qsboa-9-Ouwgswmrp Qprul-8-Nlyzvtkhs Beta Globulins PEP Interpretation Cholesterol LDL Cholesterol Direct Vitamin B12 Urine WBC (Auto) Urine Creatinine Crossmatch 04/20/16 04/20/16 04/20/16 03:55 04:16 05:52 WBC RBC Hgb Hct MCV MCH MCHC RDW Plt Count Lymph % (Auto) [place] % (Auto) Lymph # [place] # Baso # Seg Neutrophils % Seg Neuts % (Manual) Lymphocytes % (Manual) Monocytes % (Manual) Seg Neutrophils # Seg Neutrophils # Man Lymphocytes # (Manual) Monocytes # (Manual) Basophils # (Manual) Percent Retic PT INR APTT Heparin Anti-Xa Level POC ABG pH 7.474 H POC ABG pCO2 26.5 L POC ABG pO2 Sodium Potassium Chloride Carbon Dioxide 18 L BUN 38 H Creatinine 2.7 H D Glucose 159 H POC Glucose 214 H Calcium 8.0 L Phosphorus Iron TIBC Lactate Dehydrogenase Total Creatine Kinase NT-Pro-B Natriuret Pep Total Protein Albumin Amqrw-0-Fyoupmlpo Rczbj-5-Hcjleglxf Beta Globulins PEP Interpretation Cholesterol LDL Cholesterol Direct Vitamin B12 Urine WBC (Auto) Urine Creatinine Crossmatch 04/20/16 04/20/16 04/20/16 10:32 11:27 11:50 WBC RBC Hgb Hct MCV MCH MCHC RDW Plt Count Lymph % (Auto) [place] % (Auto) Lymph # [place] # Baso # Seg Neutrophils % Seg Neuts % (Manual) Lymphocytes % (Manual) Monocytes % (Manual) Seg Neutrophils # Seg Neutrophils # Man Lymphocytes # (Manual) Monocytes # (Manual) Basophils # (Manual) Percent Retic PT INR APTT Heparin Anti-Xa Level POC ABG pH POC ABG pCO2 POC ABG pO2 Sodium Potassium Chloride Carbon Dioxide 20 L BUN 45 H Creatinine 3.0 H Glucose 215 H POC Glucose 248 H Calcium 8.0 L Phosphorus Iron TIBC Lactate Dehydrogenase Total Creatine Kinase NT-Pro-B Natriuret Pep Total Protein Albumin Pkvjr-8-Oxryqfaqg Jgmng-3-Efjqiugae Beta Globulins PEP Interpretation Cholesterol LDL Cholesterol Direct Vitamin B12 Urine WBC (Auto) Urine Creatinine 85.5 H Crossmatch 04/20/16 04/21/16 04/21/16 16:59 00:13 04:29 WBC RBC Hgb Hct MCV MCH MCHC RDW Plt Count Lymph % (Auto) [place] % (Auto) Lymph # [place] # Baso # Seg Neutrophils % Seg Neuts % (Manual) Lymphocytes % (Manual) Monocytes % (Manual) Seg Neutrophils # Seg Neutrophils # Man Lymphocytes # (Manual) Monocytes # (Manual) Basophils # (Manual) Percent Retic PT 18.1 H INR 1.50 H APTT Heparin Anti-Xa Level 0.10 L POC ABG pH POC ABG pCO2 POC ABG pO2 Sodium Potassium Chloride Carbon Dioxide BUN Creatinine Glucose POC Glucose 312 H 287 H Calcium Phosphorus Iron TIBC Lactate Dehydrogenase Total Creatine Kinase NT-Pro-B Natriuret Pep Total Protein Albumin Zubdc-8-Dlqiqmdyy Ylxxj-4-Dvozfkpva Beta Globulins PEP Interpretation Cholesterol LDL Cholesterol Direct Vitamin B12 Urine WBC (Auto) Urine Creatinine Crossmatch 04/21/16 04/21/16 04/21/16 04:29 04:29 04:55 WBC 15.4 H RBC 3.24 L Hgb 8.4 L Hct 25.6 L MCV 79 L MCH 26 L MCHC RDW 16.1 H Plt Count Lymph % (Auto) 6.8 L [place] % (Auto) 12.9 H Lymph # 1.0 L [place] # 2.0 H Baso # Seg Neutrophils % 79.8 H Seg Neuts % (Manual) Lymphocytes % (Manual) Monocytes % (Manual) Seg Neutrophils # 12.3 H Seg Neutrophils # Man Lymphocytes # (Manual) Monocytes # (Manual) Basophils # (Manual) Percent Retic PT INR APTT Heparin Anti-Xa Level POC ABG pH 7.512 H POC ABG pCO2 25.4 L POC ABG pO2 Sodium 135 L Potassium Chloride Carbon Dioxide 18 L BUN 57 H Creatinine 3.9 H Glucose 202 H POC Glucose Calcium 8.0 L Phosphorus Iron TIBC Lactate Dehydrogenase Total Creatine Kinase NT-Pro-B Natriuret Pep Total Protein Albumin Oytiq-5-Faaeqekrf Gpgdu-7-Veknbggte Beta Globulins PEP Interpretation Cholesterol LDL Cholesterol Direct Vitamin B12 Urine WBC (Auto) Urine Creatinine Crossmatch 04/21/16 04/21/16 04/21/16 05:20 12:08 12:16 WBC RBC Hgb Hct MCV MCH MCHC RDW Plt Count Lymph % (Auto) [place] % (Auto) Lymph # [place] # Baso # Seg Neutrophils % Seg Neuts % (Manual) Lymphocytes % (Manual) Monocytes % (Manual) Seg Neutrophils # Seg Neutrophils # Man Lymphocytes # (Manual) Monocytes # (Manual) Basophils # (Manual) Percent Retic PT INR APTT Heparin Anti-Xa Level 0.16 L POC ABG pH POC ABG pCO2 POC ABG pO2 Sodium Potassium Chloride Carbon Dioxide BUN Creatinine Glucose POC Glucose 203 H 221 H Calcium Phosphorus Iron TIBC Lactate Dehydrogenase Total Creatine Kinase NT-Pro-B Natriuret Pep Total Protein Albumin Qwqtq-0-Gfnaqajkr Qpsrg-6-Lwjxfdmwg Beta Globulins PEP Interpretation Cholesterol LDL Cholesterol Direct Vitamin B12 Urine WBC (Auto) Urine Creatinine Crossmatch 04/21/16 04/22/16 04/22/16 17:22 05:01 05:20 WBC RBC Hgb Hct MCV MCH MCHC RDW Plt Count Lymph % (Auto) [place] % (Auto) Lymph # [place] # Baso # Seg Neutrophils % Seg Neuts % (Manual) Lymphocytes % (Manual) Monocytes % (Manual) Seg Neutrophils # Seg Neutrophils # Man Lymphocytes # (Manual) Monocytes # (Manual) Basophils # (Manual) Percent Retic PT 17.5 H INR 1.44 H APTT Heparin Anti-Xa Level POC ABG pH 7.460 H POC ABG pCO2 27.9 L POC ABG pO2 Sodium Potassium Chloride Carbon Dioxide BUN Creatinine Glucose POC Glucose 189 H Calcium Phosphorus Iron TIBC Lactate Dehydrogenase Total Creatine Kinase NT-Pro-B Natriuret Pep Total Protein Albumin Qzfvy-3-Ntootypxn Dknul-0-Jvbouxjns Beta Globulins PEP Interpretation Cholesterol LDL Cholesterol Direct Vitamin B12 Urine WBC (Auto) Urine Creatinine Crossmatch 04/22/16 04/22/16 04/22/16 05:43 06:40 08:08 WBC RBC Hgb Hct MCV MCH MCHC RDW Plt Count Lymph % (Auto) [place] % (Auto) Lymph # [place] # Baso # Seg Neutrophils % Seg Neuts % (Manual) Lymphocytes % (Manual) Monocytes % (Manual) Seg Neutrophils # Seg Neutrophils # Man Lymphocytes # (Manual) Monocytes # (Manual) Basophils # (Manual) Percent Retic PT INR APTT Heparin Anti-Xa Level POC ABG pH POC ABG pCO2 POC ABG pO2 Sodium Potassium Chloride Carbon Dioxide BUN Creatinine Glucose POC Glucose 56 L 136 H 134 H Calcium Phosphorus Iron TIBC Lactate Dehydrogenase Total Creatine Kinase NT-Pro-B Natriuret Pep Total Protein Albumin Jtkoa-5-Xjsncljpa Bgwwd-1-Ovhbnyanl Beta Globulins PEP Interpretation Cholesterol LDL Cholesterol Direct Vitamin B12 Urine WBC (Auto) Urine Creatinine Crossmatch 04/22/16 04/22/16 04/22/16 11:18 12:10 18:17 WBC RBC Hgb Hct MCV MCH MCHC RDW Plt Count Lymph % (Auto) [place] % (Auto) Lymph # [place] # Baso # Seg Neutrophils % Seg Neuts % (Manual) Lymphocytes % (Manual) Monocytes % (Manual) Seg Neutrophils # Seg Neutrophils # Man Lymphocytes # (Manual) Monocytes # (Manual) Basophils # (Manual) Percent Retic PT INR APTT Heparin Anti-Xa Level 0.12 L POC ABG pH POC ABG pCO2 POC ABG pO2 Sodium Potassium Chloride Carbon Dioxide BUN Creatinine Glucose POC Glucose 142 H 227 H Calcium Phosphorus Iron TIBC Lactate Dehydrogenase Total Creatine Kinase NT-Pro-B Natriuret Pep Total Protein Albumin Bocdh-6-Cveozjeqw Rcfba-8-Rjbkrvryr Beta Globulins PEP Interpretation Cholesterol LDL Cholesterol Direct Vitamin B12 Urine WBC (Auto) Urine Creatinine Crossmatch 04/22/16 04/22/16 04/23/16 22:28 23:47 04:49 WBC RBC Hgb Hct MCV MCH MCHC RDW Plt Count Lymph % (Auto) [place] % (Auto) Lymph # [place] # Baso # Seg Neutrophils % Seg Neuts % (Manual) Lymphocytes % (Manual) Monocytes % (Manual) Seg Neutrophils # Seg Neutrophils # Man Lymphocytes # (Manual) Monocytes # (Manual) Basophils # (Manual) Percent Retic PT INR APTT Heparin Anti-Xa Level 0.16 L POC ABG pH POC ABG pCO2 32.6 L POC ABG pO2 122 H Sodium Potassium Chloride Carbon Dioxide BUN Creatinine Glucose POC Glucose 266 H Calcium Phosphorus Iron TIBC Lactate Dehydrogenase Total Creatine Kinase NT-Pro-B Natriuret Pep Total Protein Albumin Evpvo-6-Kdhcxcuyo Hokqv-4-Blxiegizi Beta Globulins PEP Interpretation Cholesterol LDL Cholesterol Direct Vitamin B12 Urine WBC (Auto) Urine Creatinine Crossmatch 04/23/16 04/23/16 04/23/16 05:41 08:05 08:34 WBC RBC Hgb Hct MCV MCH MCHC RDW Plt Count Lymph % (Auto) [place] % (Auto) Lymph # [place] # Baso # Seg Neutrophils % Seg Neuts % (Manual) Lymphocytes % (Manual) Monocytes % (Manual) Seg Neutrophils # Seg Neutrophils # Man Lymphocytes # (Manual) Monocytes # (Manual) Basophils # (Manual) Percent Retic PT INR APTT Heparin Anti-Xa Level POC ABG pH POC ABG pCO2 POC ABG pO2 Sodium Potassium Chloride 109.5 H Carbon Dioxide 21 L BUN 23 H Creatinine Glucose 227 H POC Glucose 227 H 224 H Calcium 8.2 L Phosphorus Iron TIBC Lactate Dehydrogenase Total Creatine Kinase NT-Pro-B Natriuret Pep Total Protein Albumin Umafz-5-Kpztzaspq Bvtmq-4-Mozggryyu Beta Globulins PEP Interpretation Cholesterol LDL Cholesterol Direct Vitamin B12 Urine WBC (Auto) Urine Creatinine Crossmatch 04/23/16 04/23/16 04/23/16 10:45 11:37 22:49 WBC RBC Hgb Hct MCV MCH MCHC RDW Plt Count Lymph % (Auto) [place] % (Auto) Lymph # [place] # Baso # Seg Neutrophils % Seg Neuts % (Manual) Lymphocytes % (Manual) Monocytes % (Manual) Seg Neutrophils # Seg Neutrophils # Man Lymphocytes # (Manual) Monocytes # (Manual) Basophils # (Manual) Percent Retic PT 15.9 H INR 1.28 H APTT Heparin Anti-Xa Level 0.12 L POC ABG pH POC ABG pCO2 POC ABG pO2 Sodium Potassium Chloride Carbon Dioxide BUN Creatinine Glucose POC Glucose 256 H Calcium Phosphorus Iron TIBC Lactate Dehydrogenase Total Creatine Kinase NT-Pro-B Natriuret Pep Total Protein Albumin Davuo-8-Mlcnnpfkc Czqvc-9-Tvdigvfqf Beta Globulins PEP Interpretation Cholesterol LDL Cholesterol Direct Vitamin B12 Urine WBC (Auto) Urine Creatinine Crossmatch 04/23/16 04/24/16 04/24/16 23:59 05:29 06:03 WBC RBC Hgb Hct MCV MCH MCHC RDW Plt Count Lymph % (Auto) [place] % (Auto) Lymph # [place] # Baso # Seg Neutrophils % Seg Neuts % (Manual) Lymphocytes % (Manual) Monocytes % (Manual) Seg Neutrophils # Seg Neutrophils # Man Lymphocytes # (Manual) Monocytes # (Manual) Basophils # (Manual) Percent Retic PT INR APTT Heparin Anti-Xa Level POC ABG pH 7.464 H POC ABG pCO2 32.4 L POC ABG pO2 115 H Sodium Potassium Chloride Carbon Dioxide BUN Creatinine Glucose POC Glucose 176 H 256 H Calcium Phosphorus Iron TIBC Lactate Dehydrogenase Total Creatine Kinase NT-Pro-B Natriuret Pep Total Protein Albumin Earwd-9-Ecsuesstx Qhwak-0-Yrmestkut Beta Globulins PEP Interpretation Cholesterol LDL Cholesterol Direct Vitamin B12 Urine WBC (Auto) Urine Creatinine Crossmatch 04/24/16 04/24/16 04/24/16 07:59 12:10 17:17 WBC RBC Hgb Hct MCV MCH MCHC RDW Plt Count Lymph % (Auto) [place] % (Auto) Lymph # [place] # Baso # Seg Neutrophils % Seg Neuts % (Manual) Lymphocytes % (Manual) Monocytes % (Manual) Seg Neutrophils # Seg Neutrophils # Man Lymphocytes # (Manual) Monocytes # (Manual) Basophils # (Manual) Percent Retic PT INR APTT Heparin Anti-Xa Level 0.18 L POC ABG pH POC ABG pCO2 POC ABG pO2 Sodium Potassium Chloride Carbon Dioxide BUN Creatinine Glucose POC Glucose 304 H 325 H Calcium Phosphorus Iron TIBC Lactate Dehydrogenase Total Creatine Kinase NT-Pro-B Natriuret Pep Total Protein Albumin Srpma-8-Tpyecwkje Ubixy-9-Cpwfretbl Beta Globulins PEP Interpretation Cholesterol LDL Cholesterol Direct Vitamin B12 Urine WBC (Auto) Urine Creatinine Crossmatch 04/25/16 04/25/16 04/25/16 00:52 06:40 06:44 WBC RBC Hgb Hct MCV MCH MCHC RDW Plt Count Lymph % (Auto) [place] % (Auto) Lymph # [place] # Baso # Seg Neutrophils % Seg Neuts % (Manual) Lymphocytes % (Manual) Monocytes % (Manual) Seg Neutrophils # Seg Neutrophils # Man Lymphocytes # (Manual) Monocytes # (Manual) Basophils # (Manual) Percent Retic PT INR APTT Heparin Anti-Xa Level 0.11 L POC ABG pH POC ABG pCO2 POC ABG pO2 Sodium Potassium Chloride Carbon Dioxide BUN Creatinine Glucose POC Glucose 212 H 184 H Calcium Phosphorus Iron TIBC Lactate Dehydrogenase Total Creatine Kinase NT-Pro-B Natriuret Pep Total Protein Albumin Hvqwu-1-Ikortsbls Vnruj-0-Oeqoyrgra Beta Globulins PEP Interpretation Cholesterol LDL Cholesterol Direct Vitamin B12 Urine WBC (Auto) Urine Creatinine Crossmatch 04/25/16 04/25/16 04/25/16 11:40 13:26 17:27 WBC RBC Hgb Hct MCV MCH MCHC RDW Plt Count Lymph % (Auto) [place] % (Auto) Lymph # [place] # Baso # Seg Neutrophils % Seg Neuts % (Manual) Lymphocytes % (Manual) Monocytes % (Manual) Seg Neutrophils # Seg Neutrophils # Man Lymphocytes # (Manual) Monocytes # (Manual) Basophils # (Manual) Percent Retic PT INR APTT Heparin Anti-Xa Level 0.21 L POC ABG pH POC ABG pCO2 POC ABG pO2 Sodium Potassium Chloride Carbon Dioxide BUN Creatinine Glucose POC Glucose 206 H 204 H Calcium Phosphorus Iron TIBC Lactate Dehydrogenase Total Creatine Kinase NT-Pro-B Natriuret Pep Total Protein Albumin Blcrm-6-Ophugxcrz Izpct-4-Mdojzqctn Beta Globulins PEP Interpretation Cholesterol LDL Cholesterol Direct Vitamin B12 Urine WBC (Auto) Urine Creatinine Crossmatch 04/25/16 04/26/16 04/26/16 23:46 06:31 11:51 WBC RBC Hgb Hct MCV MCH MCHC RDW Plt Count Lymph % (Auto) [place] % (Auto) Lymph # [place] # Baso # Seg Neutrophils % Seg Neuts % (Manual) Lymphocytes % (Manual) Monocytes % (Manual) Seg Neutrophils # Seg Neutrophils # Man Lymphocytes # (Manual) Monocytes # (Manual) Basophils # (Manual) Percent Retic PT INR APTT Heparin Anti-Xa Level POC ABG pH POC ABG pCO2 POC ABG pO2 Sodium Potassium Chloride Carbon Dioxide BUN Creatinine Glucose POC Glucose 162 H 148 H 178 H Calcium Phosphorus Iron TIBC Lactate Dehydrogenase Total Creatine Kinase NT-Pro-B Natriuret Pep Total Protein Albumin Zenwv-1-Fekzrittl Ptxgz-3-Dcoubmqmx Beta Globulins PEP Interpretation Cholesterol LDL Cholesterol Direct Vitamin B12 Urine WBC (Auto) Urine Creatinine Crossmatch 04/26/16 04/26/16 04/26/16 12:17 16:16 18:14 WBC RBC Hgb Hct MCV MCH MCHC RDW Plt Count Lymph % (Auto) [place] % (Auto) Lymph # [place] # Baso # Seg Neutrophils % Seg Neuts % (Manual) Lymphocytes % (Manual) Monocytes % (Manual) Seg Neutrophils # Seg Neutrophils # Man Lymphocytes # (Manual) Monocytes # (Manual) Basophils # (Manual) Percent Retic PT INR APTT Heparin Anti-Xa Level POC ABG pH 7.513 H POC ABG pCO2 POC ABG pO2 76 L Sodium Potassium Chloride Carbon Dioxide BUN Creatinine Glucose POC Glucose 186 H 172 H Calcium Phosphorus Iron TIBC Lactate Dehydrogenase Total Creatine Kinase NT-Pro-B Natriuret Pep Total Protein Albumin Witet-9-Kqnrtuxbg Isjxz-6-Evxvhplln Beta Globulins PEP Interpretation Cholesterol LDL Cholesterol Direct Vitamin B12 Urine WBC (Auto) Urine Creatinine Crossmatch 04/26/16 04/26/16 04/27/16 19:27 23:28 04:21 WBC 13.1 H RBC 2.99 L Hgb 7.8 L Hct 24.0 L MCV 81 L MCH 26 L MCHC RDW 16.7 H Plt Count 486 H Lymph % (Auto) 12.5 L [place] % (Auto) 7.9 H Lymph # [place] # 1.0 H Baso # Seg Neutrophils % 77.5 H Seg Neuts % (Manual) Lymphocytes % (Manual) Monocytes % (Manual) Seg Neutrophils # 10.2 H Seg Neutrophils # Man Lymphocytes # (Manual) Monocytes # (Manual) Basophils # (Manual) Percent Retic PT INR APTT Heparin Anti-Xa Level 0.22 L POC ABG pH POC ABG pCO2 POC ABG pO2 Sodium Potassium Chloride Carbon Dioxide BUN Creatinine Glucose POC Glucose 141 H Calcium Phosphorus Iron TIBC Lactate Dehydrogenase Total Creatine Kinase NT-Pro-B Natriuret Pep Total Protein Albumin Mriiy-7-Pjvlsumgr Gwirv-0-Pdlagyekp Beta Globulins PEP Interpretation Cholesterol LDL Cholesterol Direct Vitamin B12 Urine WBC (Auto) Urine Creatinine Crossmatch 04/27/16 04/27/16 04/27/16 04:21 05:46 11:04 WBC RBC Hgb Hct MCV MCH MCHC RDW Plt Count Lymph % (Auto) [place] % (Auto) Lymph # [place] # Baso # Seg Neutrophils % Seg Neuts % (Manual) Lymphocytes % (Manual) Monocytes % (Manual) Seg Neutrophils # Seg Neutrophils # Man Lymphocytes # (Manual) Monocytes # (Manual) Basophils # (Manual) Percent Retic PT INR APTT Heparin Anti-Xa Level POC ABG pH 7.489 H POC ABG pCO2 POC ABG pO2 71 L Sodium Potassium Chloride Carbon Dioxide BUN Creatinine 0.6 L Glucose 187 H POC Glucose 192 H Calcium 8.0 L Phosphorus Iron TIBC Lactate Dehydrogenase Total Creatine Kinase NT-Pro-B Natriuret Pep Total Protein 6.0 L Albumin 2.0 L Mfldz-3-Ntucnkzzo Xkgkd-3-Vxhoaiklw Beta Globulins PEP Interpretation Cholesterol LDL Cholesterol Direct Vitamin B12 Urine WBC (Auto) Urine Creatinine Crossmatch 04/27/16 04/27/16 04/27/16 14:12 21:58 23:38 WBC RBC Hgb Hct MCV MCH MCHC RDW Plt Count Lymph % (Auto) [place] % (Auto) Lymph # [place] # Baso # Seg Neutrophils % Seg Neuts % (Manual) Lymphocytes % (Manual) Monocytes % (Manual) Seg Neutrophils # Seg Neutrophils # Man Lymphocytes # (Manual) Monocytes # (Manual) Basophils # (Manual) Percent Retic PT INR APTT Heparin Anti-Xa Level 0.24 L POC ABG pH POC ABG pCO2 POC ABG pO2 Sodium Potassium Chloride Carbon Dioxide BUN Creatinine Glucose POC Glucose 216 H 181 H Calcium Phosphorus Iron TIBC Lactate Dehydrogenase Total Creatine Kinase NT-Pro-B Natriuret Pep Total Protein Albumin Vtmbb-7-Pprheeqkr Zdnsn-5-Tyyvuipuu Beta Globulins PEP Interpretation Cholesterol LDL Cholesterol Direct Vitamin B12 Urine WBC (Auto) Urine Creatinine Crossmatch 04/28/16 04/28/16 04/28/16 04:28 05:52 11:31 WBC RBC Hgb Hct MCV MCH MCHC RDW Plt Count Lymph % (Auto) [place] % (Auto) Lymph # [place] # Baso # Seg Neutrophils % Seg Neuts % (Manual) Lymphocytes % (Manual) Monocytes % (Manual) Seg Neutrophils # Seg Neutrophils # Man Lymphocytes # (Manual) Monocytes # (Manual) Basophils # (Manual) Percent Retic PT INR APTT Heparin Anti-Xa Level POC ABG pH 7.524 H POC ABG pCO2 POC ABG pO2 Sodium Potassium Chloride Carbon Dioxide BUN Creatinine Glucose POC Glucose 254 H 280 H Calcium Phosphorus Iron TIBC Lactate Dehydrogenase Total Creatine Kinase NT-Pro-B Natriuret Pep Total Protein Albumin Zbvre-8-Uzgxsujhw Ddqzn-7-Aqovpvzzg Beta Globulins PEP Interpretation Cholesterol LDL Cholesterol Direct Vitamin B12 Urine WBC (Auto) Urine Creatinine Crossmatch 04/28/16 04/28/16 04/29/16 17:30 19:52 00:47 WBC RBC Hgb Hct MCV MCH MCHC RDW Plt Count Lymph % (Auto) [place] % (Auto) Lymph # [place] # Baso # Seg Neutrophils % Seg Neuts % (Manual) Lymphocytes % (Manual) Monocytes % (Manual) Seg Neutrophils # Seg Neutrophils # Man Lymphocytes # (Manual) Monocytes # (Manual) Basophils # (Manual) Percent Retic PT INR APTT Heparin Anti-Xa Level 0.15 L POC ABG pH POC ABG pCO2 POC ABG pO2 Sodium Potassium Chloride Carbon Dioxide BUN Creatinine Glucose POC Glucose 208 H 265 H Calcium Phosphorus Iron TIBC Lactate Dehydrogenase Total Creatine Kinase NT-Pro-B Natriuret Pep Total Protein Albumin Wgrbg-1-Pxoceunvg Uifay-4-Fugfbbztm Beta Globulins PEP Interpretation Cholesterol LDL Cholesterol Direct Vitamin B12 Urine WBC (Auto) Urine Creatinine Crossmatch 04/29/16 04/29/16 04/29/16 04:00 04:00 04:29 WBC 13.4 H RBC 2.56 L Hgb 6.9 L Hct 20.6 L MCV 81 L MCH 27 L MCHC RDW 16.2 H Plt Count 513 H Lymph % (Auto) 10.0 L [place] % (Auto) 12.0 H Lymph # [place] # 1.6 H Baso # Seg Neutrophils % 77.1 H Seg Neuts % (Manual) Lymphocytes % (Manual) Monocytes % (Manual) Seg Neutrophils # 10.4 H Seg Neutrophils # Man Lymphocytes # (Manual) Monocytes # (Manual) Basophils # (Manual) Percent Retic PT INR APTT Heparin Anti-Xa Level POC ABG pH 7.501 H POC ABG pCO2 POC ABG pO2 76 L Sodium Potassium Chloride Carbon Dioxide BUN 27 H Creatinine Glucose 204 H POC Glucose Calcium 8.1 L Phosphorus Iron TIBC Lactate Dehydrogenase Total Creatine Kinase NT-Pro-B Natriuret Pep Total Protein Albumin Xvpdb-3-Jycrrsczu Ooxag-6-Fhoaanpwf Beta Globulins PEP Interpretation Cholesterol LDL Cholesterol Direct Vitamin B12 Urine WBC (Auto) Urine Creatinine Crossmatch 04/29/16 04/29/16 04/29/16 06:03 10:05 10:16 WBC RBC Hgb Hct MCV MCH MCHC RDW Plt Count Lymph % (Auto) [place] % (Auto) Lymph # [place] # Baso # Seg Neutrophils % Seg Neuts % (Manual) Lymphocytes % (Manual) Monocytes % (Manual) Seg Neutrophils # Seg Neutrophils # Man Lymphocytes # (Manual) Monocytes # (Manual) Basophils # (Manual) Percent Retic 3.68 H PT INR APTT Heparin Anti-Xa Level POC ABG pH POC ABG pCO2 POC ABG pO2 Sodium Potassium Chloride Carbon Dioxide BUN Creatinine Glucose POC Glucose 192 H Calcium Phosphorus Iron TIBC Lactate Dehydrogenase Total Creatine Kinase NT-Pro-B Natriuret Pep Total Protein Albumin Npqhc-7-Vxrbsqalz Kgffg-3-Annvvuzab Beta Globulins PEP Interpretation Cholesterol LDL Cholesterol Direct Vitamin B12 Urine WBC (Auto) Urine Creatinine Crossmatch See Detail 04/29/16 04/29/16 04/29/16 10:16 10:16 11:23 WBC RBC Hgb Hct MCV MCH MCHC RDW Plt Count Lymph % (Auto) [place] % (Auto) Lymph # [place] # Baso # Seg Neutrophils % Seg Neuts % (Manual) Lymphocytes % (Manual) Monocytes % (Manual) Seg Neutrophils # Seg Neutrophils # Man Lymphocytes # (Manual) Monocytes # (Manual) Basophils # (Manual) Percent Retic PT INR APTT Heparin Anti-Xa Level POC ABG pH POC ABG pCO2 POC ABG pO2 Sodium Potassium Chloride Carbon Dioxide BUN Creatinine Glucose POC Glucose 116 H Calcium Phosphorus Iron 10 L TIBC 138 L Lactate Dehydrogenase 204 H Total Creatine Kinase NT-Pro-B Natriuret Pep Total Protein Albumin Xqtdh-2-Yywgqksop Tgtah-1-Ivckstaua Beta Globulins PEP Interpretation Cholesterol LDL Cholesterol Direct Vitamin B12 1005 H Urine WBC (Auto) Urine Creatinine Crossmatch 04/29/16 04/29/16 04/30/16 17:34 23:19 03:19 WBC RBC Hgb 9.0 L Hct 26.7 L D MCV MCH MCHC RDW Plt Count Lymph % (Auto) [place] % (Auto) Lymph # [place] # Baso # Seg Neutrophils % Seg Neuts % (Manual) Lymphocytes % (Manual) Monocytes % (Manual) Seg Neutrophils # Seg Neutrophils # Man Lymphocytes # (Manual) Monocytes # (Manual) Basophils # (Manual) Percent Retic PT INR APTT Heparin Anti-Xa Level POC ABG pH POC ABG pCO2 POC ABG pO2 Sodium Potassium Chloride Carbon Dioxide BUN Creatinine Glucose POC Glucose 142 H 242 H Calcium Phosphorus Iron TIBC Lactate Dehydrogenase Total Creatine Kinase NT-Pro-B Natriuret Pep Total Protein Albumin Hpfvs-6-Tnwyicpdp Hgxvm-5-Liutqrung Beta Globulins PEP Interpretation Cholesterol LDL Cholesterol Direct Vitamin B12 Urine WBC (Auto) Urine Creatinine Crossmatch 04/30/16 04/30/16 04/30/16 04:10 04:10 04:32 WBC 13.8 H RBC 3.54 L Hgb 9.3 L Hct 29.1 L MCV 82 L MCH 26 L MCHC RDW 16.5 H Plt Count 535 H Lymph % (Auto) 7.5 L [place] % (Auto) 13.8 H Lymph # 1.0 L [place] # 1.9 H Baso # Seg Neutrophils % 78.0 H Seg Neuts % (Manual) Lymphocytes % (Manual) Monocytes % (Manual) Seg Neutrophils # 10.7 H Seg Neutrophils # Man Lymphocytes # (Manual) Monocytes # (Manual) Basophils # (Manual) Percent Retic PT INR APTT Heparin Anti-Xa Level POC ABG pH 7.519 H POC ABG pCO2 33.6 L POC ABG pO2 79 L Sodium 146 H Potassium Chloride Carbon Dioxide BUN Creatinine 0.7 L Glucose 242 H POC Glucose Calcium 8.3 L Phosphorus Iron TIBC Lactate Dehydrogenase Total Creatine Kinase NT-Pro-B Natriuret Pep Total Protein Albumin Fxuej-8-Dzakdqjaa Eovvx-3-Qzaxsgkxq Beta Globulins PEP Interpretation Cholesterol LDL Cholesterol Direct Vitamin B12 Urine WBC (Auto) Urine Creatinine Crossmatch 04/30/16 04/30/16 04/30/16 05:33 11:23 17:26 WBC RBC Hgb Hct MCV MCH MCHC RDW Plt Count Lymph % (Auto) [place] % (Auto) Lymph # [place] # Baso # Seg Neutrophils % Seg Neuts % (Manual) Lymphocytes % (Manual) Monocytes % (Manual) Seg Neutrophils # Seg Neutrophils # Man Lymphocytes # (Manual) Monocytes # (Manual) Basophils # (Manual) Percent Retic PT INR APTT Heparin Anti-Xa Level POC ABG pH POC ABG pCO2 POC ABG pO2 Sodium Potassium Chloride Carbon Dioxide BUN Creatinine Glucose POC Glucose 242 H 305 H 281 H Calcium Phosphorus Iron TIBC Lactate Dehydrogenase Total Creatine Kinase NT-Pro-B Natriuret Pep Total Protein Albumin Stalh-8-Cauqtrlbh Opmkd-3-Zvmyhhjfn Beta Globulins PEP Interpretation Cholesterol LDL Cholesterol Direct Vitamin B12 Urine WBC (Auto) Urine Creatinine Crossmatch 04/30/16 05/01/16 05/01/16 23:53 04:00 04:00 WBC 15.9 H RBC 2.99 L Hgb 7.9 L Hct 24.4 L MCV 82 L MCH 26 L MCHC RDW 16.9 H Plt Count 481 H Lymph % (Auto) 9.3 L [place] % (Auto) 15.0 H Lymph # [place] # 2.4 H Baso # Seg Neutrophils % 74.9 H Seg Neuts % (Manual) Lymphocytes % (Manual) Monocytes % (Manual) Seg Neutrophils # 11.9 H Seg Neutrophils # Man Lymphocytes # (Manual) Monocytes # (Manual) Basophils # (Manual) Percent Retic PT INR APTT Heparin Anti-Xa Level POC ABG pH POC ABG pCO2 POC ABG pO2 Sodium 147 H Potassium Chloride 107.8 H Carbon Dioxide BUN 22 H Creatinine 0.7 L Glucose 229 H POC Glucose 207 H Calcium 8.2 L Phosphorus Iron TIBC Lactate Dehydrogenase Total Creatine Kinase NT-Pro-B Natriuret Pep Total Protein Albumin Puewc-7-Agacnyrev Fnmuu-1-Uhsditpsm Beta Globulins PEP Interpretation Cholesterol LDL Cholesterol Direct Vitamin B12 Urine WBC (Auto) Urine Creatinine Crossmatch 05/01/16 05/01/16 05/01/16 05:12 07:41 12:33 WBC RBC Hgb Hct MCV MCH MCHC RDW Plt Count Lymph % (Auto) [place] % (Auto) Lymph # [place] # Baso # Seg Neutrophils % Seg Neuts % (Manual) Lymphocytes % (Manual) Monocytes % (Manual) Seg Neutrophils # Seg Neutrophils # Man Lymphocytes # (Manual) Monocytes # (Manual) Basophils # (Manual) Percent Retic PT INR APTT Heparin Anti-Xa Level 0.16 L POC ABG pH POC ABG pCO2 POC ABG pO2 Sodium Potassium Chloride Carbon Dioxide BUN Creatinine Glucose POC Glucose 284 H 186 H Calcium Phosphorus Iron TIBC Lactate Dehydrogenase Total Creatine Kinase NT-Pro-B Natriuret Pep Total Protein Albumin Jvwsf-6-Osjqgfgtg Cfzvl-2-Qoqlbupgc Beta Globulins PEP Interpretation Cholesterol LDL Cholesterol Direct Vitamin B12 Urine WBC (Auto) Urine Creatinine Crossmatch 05/01/16 05/01/16 05/02/16 17:24 23:19 04:48 WBC 17.2 H RBC 3.09 L Hgb 8.1 L Hct 25.5 L MCV 83 L MCH 26 L MCHC RDW 17.3 H Plt Count 507 H Lymph % (Auto) 8.0 L [place] % (Auto) 13.6 H Lymph # [place] # 2.3 H Baso # Seg Neutrophils % 77.5 H Seg Neuts % (Manual) Lymphocytes % (Manual) Monocytes % (Manual) Seg Neutrophils # 13.4 H Seg Neutrophils # Man Lymphocytes # (Manual) Monocytes # (Manual) Basophils # (Manual) Percent Retic PT INR APTT Heparin Anti-Xa Level POC ABG pH POC ABG pCO2 POC ABG pO2 Sodium Potassium Chloride Carbon Dioxide BUN Creatinine Glucose POC Glucose 171 H 132 H Calcium Phosphorus Iron TIBC Lactate Dehydrogenase Total Creatine Kinase NT-Pro-B Natriuret Pep Total Protein Albumin Yhfpz-5-Axicklikn Kfotb-9-Ljlkcbtmk Beta Globulins PEP Interpretation Cholesterol LDL Cholesterol Direct Vitamin B12 Urine WBC (Auto) Urine Creatinine Crossmatch 05/02/16 05/02/16 05/02/16 04:48 04:48 05:42 WBC RBC Hgb Hct MCV MCH MCHC RDW Plt Count Lymph % (Auto) [place] % (Auto) Lymph # [place] # Baso # Seg Neutrophils % Seg Neuts % (Manual) Lymphocytes % (Manual) Monocytes % (Manual) Seg Neutrophils # Seg Neutrophils # Man Lymphocytes # (Manual) Monocytes # (Manual) Basophils # (Manual) Percent Retic PT INR APTT Heparin Anti-Xa Level 0.19 L POC ABG pH POC ABG pCO2 POC ABG pO2 Sodium 149 H Potassium Chloride 109.9 H Carbon Dioxide BUN 24 H Creatinine Glucose 224 H POC Glucose 253 H Calcium 8.2 L Phosphorus Iron TIBC Lactate Dehydrogenase Total Creatine Kinase NT-Pro-B Natriuret Pep Total Protein Albumin Rajcf-6-Hfmnoiwev Rqdrb-2-Eimfnvxqh Beta Globulins PEP Interpretation Cholesterol LDL Cholesterol Direct Vitamin B12 Urine WBC (Auto) Urine Creatinine Crossmatch 05/02/16 05/02/16 05/02/16 12:01 16:40 23:35 WBC RBC Hgb Hct MCV MCH MCHC RDW Plt Count Lymph % (Auto) [place] % (Auto) Lymph # [place] # Baso # Seg Neutrophils % Seg Neuts % (Manual) Lymphocytes % (Manual) Monocytes % (Manual) Seg Neutrophils # Seg Neutrophils # Man Lymphocytes # (Manual) Monocytes # (Manual) Basophils # (Manual) Percent Retic PT INR APTT Heparin Anti-Xa Level POC ABG pH POC ABG pCO2 POC ABG pO2 Sodium Potassium Chloride Carbon Dioxide BUN Creatinine Glucose POC Glucose 197 H 126 H 303 H Calcium Phosphorus Iron TIBC Lactate Dehydrogenase Total Creatine Kinase NT-Pro-B Natriuret Pep Total Protein Albumin Dazeu-5-Vxcbwpmmg Nkpbq-8-Fublvtpri Beta Globulins PEP Interpretation Cholesterol LDL Cholesterol Direct Vitamin B12 Urine WBC (Auto) Urine Creatinine Crossmatch 05/03/16 05/03/16 05/03/16 04:31 04:31 04:31 WBC 19.1 H RBC 3.15 L Hgb 8.6 L Hct 25.7 L MCV 82 L MCH MCHC RDW 17.4 H Plt Count 525 H Lymph % (Auto) [place] % (Auto) Lymph # [place] # Baso # Seg Neutrophils % Seg Neuts % (Manual) Lymphocytes % (Manual) 10.0 L Monocytes % (Manual) 13.0 H Seg Neutrophils # Seg Neutrophils # Man 13.2 H Lymphocytes # (Manual) Monocytes # (Manual) 2.5 H Basophils # (Manual) 0.2 H Percent Retic PT INR APTT Heparin Anti-Xa Level 0.16 L POC ABG pH POC ABG pCO2 POC ABG pO2 Sodium 151 H Potassium Chloride 112.9 H Carbon Dioxide BUN 24 H Creatinine 0.7 L Glucose 303 H POC Glucose Calcium Phosphorus Iron TIBC Lactate Dehydrogenase Total Creatine Kinase NT-Pro-B Natriuret Pep Total Protein Albumin Dsdai-1-Ntuedlhtr Reyxq-3-Eblgpompo Beta Globulins PEP Interpretation Cholesterol LDL Cholesterol Direct Vitamin B12 Urine WBC (Auto) Urine Creatinine Crossmatch 05/03/16 05/03/16 05/04/16 12:08 18:05 00:11 WBC RBC Hgb Hct MCV MCH MCHC RDW Plt Count Lymph % (Auto) [place] % (Auto) Lymph # [place] # Baso # Seg Neutrophils % Seg Neuts % (Manual) Lymphocytes % (Manual) Monocytes % (Manual) Seg Neutrophils # Seg Neutrophils # Man Lymphocytes # (Manual) Monocytes # (Manual) Basophils # (Manual) Percent Retic PT INR APTT Heparin Anti-Xa Level POC ABG pH POC ABG pCO2 POC ABG pO2 Sodium Potassium Chloride Carbon Dioxide BUN Creatinine Glucose POC Glucose 452 H 370 H 374 H Calcium Phosphorus Iron TIBC Lactate Dehydrogenase Total Creatine Kinase NT-Pro-B Natriuret Pep Total Protein Albumin Gnlou-3-Sxcuhmzcd Eunkk-8-Gnozegfqy Beta Globulins PEP Interpretation Cholesterol LDL Cholesterol Direct Vitamin B12 Urine WBC (Auto) Urine Creatinine Crossmatch 05/04/16 05/04/16 05/04/16 04:31 04:31 04:31 WBC 19.8 H RBC 2.90 L Hgb 7.8 L Hct 23.8 L MCV 82 L MCH 27 L MCHC RDW 17.9 H Plt Count 504 H Lymph % (Auto) [place] % (Auto) Lymph # [place] # Baso # Seg Neutrophils % Seg Neuts % (Manual) Lymphocytes % (Manual) 11.0 L Monocytes % (Manual) 8.0 H Seg Neutrophils # Seg Neutrophils # Man 13.3 H Lymphocytes # (Manual) Monocytes # (Manual) 1.6 H Basophils # (Manual) Percent Retic PT INR APTT Heparin Anti-Xa Level 0.15 L POC ABG pH POC ABG pCO2 POC ABG pO2 Sodium 146 H Potassium Chloride Carbon Dioxide BUN 30 H Creatinine 0.7 L Glucose 321 H POC Glucose Calcium 8.3 L Phosphorus Iron TIBC Lactate Dehydrogenase Total Creatine Kinase NT-Pro-B Natriuret Pep Total Protein Albumin Oizfo-9-Caffkcgfc Kfizx-5-Kyphkfpol Beta Globulins PEP Interpretation Cholesterol LDL Cholesterol Direct Vitamin B12 Urine WBC (Auto) Urine Creatinine Crossmatch 05/04/16 05/04/16 05/04/16 10:20 11:57 17:36 WBC RBC Hgb Hct MCV MCH MCHC RDW Plt Count Lymph % (Auto) [place] % (Auto) Lymph # [place] # Baso # Seg Neutrophils % Seg Neuts % (Manual) Lymphocytes % (Manual) Monocytes % (Manual) Seg Neutrophils # Seg Neutrophils # Man Lymphocytes # (Manual) Monocytes # (Manual) Basophils # (Manual) Percent Retic PT INR APTT Heparin Anti-Xa Level POC ABG pH POC ABG pCO2 POC ABG pO2 Sodium Potassium Chloride Carbon Dioxide BUN Creatinine Glucose POC Glucose 303 H 271 H Calcium Phosphorus Iron TIBC Lactate Dehydrogenase Total Creatine Kinase NT-Pro-B Natriuret Pep Total Protein Albumin Nysgt-5-Vebafsaii Czjeh-2-[place] Beta Globulins PEP Interpretation Cholesterol LDL Cholesterol Direct Vitamin B12 Urine WBC (Auto) > 182.0 H Urine Creatinine Crossmatch 05/04/16 05/05/16 05/05/16 23:53 04:13 04:13 WBC 20.9 H RBC 2.92 L Hgb 7.6 L Hct 23.9 L MCV 82 L MCH 26 L MCHC RDW 17.9 H Plt Count 526 H Lymph % (Auto) [place] % (Auto) Lymph # [place] # Baso # Seg Neutrophils % Seg Neuts % (Manual) 93.0 H Lymphocytes % (Manual) 2.0 L Monocytes % (Manual) Seg Neutrophils # Seg Neutrophils # Man 19.4 H Lymphocytes # (Manual) 0.4 L Monocytes # (Manual) Basophils # (Manual) Percent Retic PT INR APTT Heparin Anti-Xa Level POC ABG pH POC ABG pCO2 POC ABG pO2 Sodium 146 H Potassium Chloride Carbon Dioxide BUN 30 H Creatinine 0.7 L Glucose 250 H POC Glucose 235 H Calcium 8.1 L Phosphorus Iron TIBC Lactate Dehydrogenase Total Creatine Kinase NT-Pro-B Natriuret Pep Total Protein Albumin Zojsq-0-Ihmmdedgg Dbzla-7-Cyxsovzim Beta Globulins PEP Interpretation Cholesterol LDL Cholesterol Direct Vitamin B12 Urine WBC (Auto) Urine Creatinine Crossmatch 05/05/16 05/05/16 05:27 07:36 WBC RBC Hgb Hct MCV MCH MCHC RDW Plt Count Lymph % (Auto) [place] % (Auto) Lymph # [place] # Baso # Seg Neutrophils % Seg Neuts % (Manual) Lymphocytes % (Manual) Monocytes % (Manual) Seg Neutrophils # Seg Neutrophils # Man Lymphocytes # (Manual) Monocytes # (Manual) Basophils # (Manual) Percent Retic PT INR APTT Heparin Anti-Xa Level < 0.10 L POC ABG pH POC ABG pCO2 POC ABG pO2 Sodium Potassium Chloride Carbon Dioxide BUN Creatinine Glucose POC Glucose 287 H Calcium Phosphorus Iron TIBC Lactate Dehydrogenase Total Creatine Kinase NT-Pro-B Natriuret Pep Total Protein Albumin Mddog-9-Cndjzumbf Akint-1-Izgoynpve Beta Globulins PEP Interpretation Cholesterol LDL Cholesterol Direct Vitamin B12 Urine WBC (Auto) Urine Creatinine Crossmatch
[2016-05-05] MEDS: TYLENOL PO PRN ×2 (12:23→22:11)
[2016-05-05] MEDS ORDERED: LEVEMIR SUB-Q ONE (14:00)
--- NOTE | 2016-05-05 14:55 | Progress Note ---
Assessment and Plan Assessment and plan: 1. Acute respiratory failure. Patient reintubated on 04/17/16. Continue mechanical ventilation per pulmonary. Tracheostomy on 04/29/16. Continue CPAP trials as per pulmonary; cotn to have temp spikes; agree with d/c antibiotics that were started overnight; f/u repeat blood NGTD; f/u as per pulmonary 2. Acute CVA -right cerebellum; subacute infarct in the right cerebellar hemisphere with associated edema and mass effect as previously described. Patient also with multiple areas of acute infarct in the left occipital and frontal lobes that are most likely embolic. LIZZIE done- No thrombus but decreased flow- cotn coumadin and heparin as bridge 3. Encephalopathy. EEG normal. Etiology likely secondary to CVA +/- hypertension. supportive care 4. Accelerated hypertension- now BP controlled; cont antihypertensive medications 5. CAD-stable; contn meds 6. . Seizures-continue Keppra. EEG normal. 7. Type 2 diabetes mellitus-. Glycemic control; cotn current insulin regime. 8. History of aortic dissection status post repair. 9. Oropharyngeal dysphagia. Patient failed swallow evaluation. Status post PEG placement on 04/17. Cont PEG feeds 10. DVT prophylaxis-on heparin drip. 11. GI prophylaxis-Pepcid CCT exclusive of all other billable procedures 32 minutes History Interval history: f/u respiratory failure; hypernatremia; acute renal failure Patient seen at the bedside; vented; no family present; remains unresponsive today; foul odor from the [facility] Hospitalist Physical - Constitutional Vitals: Temp Pulse Resp BP Pulse Ox 102.2 F H 93 H 20 115/69 100 05/05/16 12:00 05/05/16 13:35 05/05/16 13:35 05/05/16 13:01 05/05/16 13:01 General appearance: Present: no acute distress, other (tracheostomy) - EENT Eyes: Present: PERRL. Absent: scleral icterus, conjunctival injection - Neck Neck: Present: supple, normal ROM. Absent: enlarged thyroid, masses or JVD - Respiratory Respiratory effort: other (vented ) Respiratory: bilateral: diminished, negative: rales, rhonchi, wheezing - Cardiovascular Rhythm: regular Heart Sounds: Present: S1 & S2. Absent: gallop - Extremities Extremities: no ischemia, pulses intact, pulses symmetrical Peripheral Pulses: within normal limits - Abdominal General gastrointestinal: soft, non-tender, non-distended - Psychiatric Psychiatric: other (unable to assess ) - Neurologic Neurologic: other (non verbal; does not obey commands or open eyes) Results - Labs CBC & Chem 7: 05/05/16 04:13 05/05/16 04:13 Labs: Laboratory Last Values WBC 20.9 K/mm3 (4.5-11.0) H 05/05/16 04:13 RBC 2.92 M/mm3 (3.65-5.03) L 05/05/16 04:13 Hgb 7.6 gm/dl (11.8-15.2) L 05/05/16 04:13 Hct 23.9 % (35.5-45.6) L 05/05/16 04:13 MCV 82 fl (84-94) L 05/05/16 04:13 MCH 26 pg (28-32) L 05/05/16 04:13 MCHC 32 % (32-34) 05/05/16 04:13 RDW 17.9 % (13.2-15.2) H 05/05/16 04:13 Plt Count 526 K/mm3 (140-440) H 05/05/16 04:13 Lymph % (Auto) 8.0 % (13.4-35.0) L 05/02/16 04:48 [place] % (Auto) 13.6 % (0.0-7.3) H 05/02/16 04:48 Eos % (Auto) 0.2 % (0.0-4.3) 05/02/16 04:48 Baso % (Auto) 0.7 % (0.0-1.8) 05/02/16 04:48 Lymph # 1.4 K/mm3 (1.2-5.4) 05/02/16 04:48 [place] # 2.3 K/mm3 (0.0-0.8) H 05/02/16 04:48 Eos # 0.0 K/mm3 (0.0-0.4) 05/02/16 04:48 Baso # 0.1 K/mm3 (0.0-0.1) 05/02/16 04:48 Add Manual Diff Complete 05/05/16 04:13 Total Counted 100 05/05/16 04:13 Seg Neutrophils % 77.5 % (40.0-70.0) H 05/02/16 04:48 Seg Neuts % (Manual) 93.0 % (40.0-70.0) H 05/05/16 04:13 Band Neutrophils % 0 % 05/05/16 04:13 Lymphocytes % (Manual) 2.0 % (13.4-35.0) L 05/05/16 04:13 Reactive Lymphs % (Man) 0 % 05/05/16 04:13 Monocytes % (Manual) 4.0 % (0.0-7.3) 05/05/16 04:13 Eosinophils % (Manual) 0 % (0.0-4.3) 05/05/16 04:13 Basophils % (Manual) 0 % (0.0-1.8) 05/05/16 04:13 Metamyelocytes % 0 % 05/05/16 04:13 Myelocytes % 1.0 % 05/05/16 04:13 Promyelocytes % 0 % 05/05/16 04:13 Blast Cells % 0 % 05/05/16 04:13 Nucleated RBC % Not Reportable 05/05/16 04:13 Seg Neutrophils # 13.4 K/mm3 (1.8-7.7) H 05/02/16 04:48 Seg Neutrophils # Man 19.4 K/mm3 (1.8-7.7) H 05/05/16 04:13 Band Neutrophils # 0.0 K/mm3 05/05/16 04:13 Lymphocytes # (Manual) 0.4 K/mm3 (1.2-5.4) L 05/05/16 04:13 Abs React Lymphs (Man) 0.0 K/mm3 05/05/16 04:13 Monocytes # (Manual) 0.8 K/mm3 (0.0-0.8) 05/05/16 04:13 Eosinophils # (Manual) 0.0 K/mm3 (0.0-0.4) 05/05/16 04:13 Basophils # (Manual) 0.0 K/mm3 (0.0-0.1) 05/05/16 04:13 Metamyelocytes # 0.0 K/mm3 05/05/16 04:13 Myelocytes # 0.2 K/mm3 05/05/16 04:13 Promyelocytes # 0.0 K/mm3 05/05/16 04:13 Blast Cells # 0.0 K/mm3 05/05/16 04:13 WBC Morphology Not Reportable 05/05/16 04:13 Hypersegmented Neuts Few 05/05/16 04:13 Hyposegmented Neuts Not Reportable 05/05/16 04:13 Hypogranular Neuts Not Reportable 05/05/16 04:13 Smudge Cells Few 05/05/16 04:13 Toxic Granulation Not Reportable 05/05/16 04:13 Toxic Vacuolation Not Reportable 05/05/16 04:13 Dohle Bodies Not Reportable 05/05/16 04:13 Pelger-Huet Anomaly Not Reportable 05/05/16 04:13 Corina Rods Not Reportable 05/05/16 04:13 Platelet Estimate Appears increased 05/05/16 04:13 Clumped Platelets Not Reportable 05/05/16 04:13 Plt Clumps, EDTA Not Reportable 05/05/16 04:13 Large Platelets Not Reportable 05/05/16 04:13 Giant Platelets Rare 05/05/16 04:13 Platelet Satelliting Not Reportable 05/05/16 04:13 Plt Morphology Comment Not Reportable 05/05/16 04:13 RBC Morphology Not Reportable 05/05/16 04:13 Dimorphic RBCs Not Reportable 05/05/16 04:13 Polychromasia Not Reportable 05/05/16 04:13 Hypochromasia 1+ 05/05/16 04:13 Poikilocytosis Not Reportable 05/05/16 04:13 Anisocytosis 1+ 05/05/16 04:13 Microcytosis Not Reportable 05/05/16 04:13 Macrocytosis Not Reportable 05/05/16 04:13 Spherocytes Not Reportable 05/05/16 04:13 Pappenheimer Bodies Not Reportable 05/05/16 04:13 Sickle Cells Not Reportable 05/05/16 04:13 Target Cells Rare 05/05/16 04:13 Tear Drop Cells Not Reportable 05/05/16 04:13 Ovalocytes Not Reportable 05/05/16 04:13 Helmet Cells Not Reportable 05/05/16 04:13 [place] Bodies Not Reportable 05/05/16 04:13 [place] Rings Not Reportable 05/05/16 04:13 [place] Cells Not Reportable 05/05/16 04:13 Bite Cells Not Reportable 05/05/16 04:13 Crenated Cell Not Reportable 05/05/16 04:13 Elliptocytes Not Reportable 05/05/16 04:13 Acanthocytes (Spur) Not Reportable 05/05/16 04:13 Rouleaux Not Reportable 05/05/16 04:13 Hemoglobin C Crystals Not Reportable 05/05/16 04:13 Schistocytes Not Reportable 05/05/16 04:13 Malaria parasites Not Reportable 05/05/16 04:13 Percent Retic 3.68 % (0.78-2.58) H 04/29/16 10:16 Gideon Bodies Not Reportable 05/05/16 04:13 Hem Pathologist Commnt No 05/05/16 04:13 PT 15.9 Sec. (12.2-14.9) H 04/23/16 10:45 INR 1.28 (0.87-1.13) H 04/23/16 10:45 APTT 42.1 Sec. (24.2-36.6) H 04/04/16 09:55 Heparin Anti-Xa Level < 0.10 U.I./ml (0.3-0.7) L 05/05/16 07:36 POC ABG pH 7.519 (7.35-7.45) H 04/30/16 04:32 POC ABG pCO2 33.6 (35-45) L 04/30/16 04:32 POC ABG pO2 79 (80-105) L 04/30/16 04:32 POC ABG HCO3 27.4 04/30/16 04:32 POC ABG Total CO2 28 04/30/16 04:32 POC ABG O2 Sat 97 04/30/16 04:32 POC ABG Base Excess 5 04/30/16 04:32 VBG pH 7.418 (7.320-7.420) 03/24/16 14:00 FiO2 25 % 04/30/16 04:32 Sodium 146 mmol/L (137-145) H 05/05/16 04:13 Potassium 3.7 mmol/L (3.6-5.0) 05/05/16 04:13 Chloride 106.0 mmol/L (98-107) 05/05/16 04:13 Carbon Dioxide 27 mmol/L (22-30) 05/05/16 04:13 Anion Gap 17 mmol/L 05/05/16 04:13 BUN 30 mg/dL (9-20) H 05/05/16 04:13 Creatinine 0.7 mg/dL (0.8-1.5) L 05/05/16 04:13 Estimated GFR > 60 ml/min 05/05/16 04:13 BUN/Creatinine Ratio 42.85 % 05/05/16 04:13 Glucose 250 mg/dL (75-100) H 05/05/16 04:13 POC Glucose 301 (70-105) H 05/05/16 12:06 Hemoglobin A1c 9.6 % (4-6) H 03/24/16 14:00 Lactic Acid 1.6 mmol/L (0.7-2.0) 04/17/16 12:17 Calcium 8.1 mg/dL (8.4-10.2) L 05/05/16 04:13 Phosphorus 2.3 mg/dL (2.5-4.5) L D 03/30/16 04:00 Magnesium 1.9 mg/dL (1.7-2.3) 03/30/16 04:00 Iron 10 ug/dL (49-181) L 04/29/16 10:16 TIBC 138 mcg/dL (250-450) L 04/29/16 10:16 Ferritin 336.4 ng/mL (13.0-400.0) 04/29/16 10:16 Total Bilirubin < 0.2 mg/dL (0.1-1.2) 04/27/16 04:21 AST 18 units/L (5-40) 04/27/16 04:21 ALT 39 units/L (7-56) 04/27/16 04:21 Alkaline Phosphatase 103 units/L (35-129) 04/27/16 04:21 Lactate Dehydrogenase 204 units/L (91-180) H 04/29/16 10:16 Total Creatine Kinase 356 units/L (55-170) H 03/28/16 13:29 Troponin T < 0.010 ng/mL (0.00-0.029) 03/28/16 13:29 NT-Pro-B Natriuret Pep 897.9 pg/mL (0-900) 04/03/16 04:10 Serum Total Protein 7.1 g/dL (6.1-8.1) 03/25/16 13:00 Total Protein 6.0 g/dL (6.3-8.2) L 04/27/16 04:21 Albumin 2.0 g/dL (3.9-5) L 04/27/16 04:21 Albumin/Globulin Ratio 0.5 % 04/27/16 04:21 [id number] See scanned report 03/31/16 12:20 [id number] See scanned report 03/31/16 12:20 Beta Globulins See scanned report 03/31/16 12:20 [id number]-2-[id number] 2.46 mg/L (<=2.51) 03/25/16 13:00 Gamma Globulins See scanned report 03/31/16 12:20 Abnorm Protein Band 1 see below (()) 03/25/16 13:00 PEP Interpretation See scanned report 03/31/16 12:20 Triglycerides 88 mg/dL (2-149) 03/24/16 17:58 Cholesterol 221 mg/dL (50-199) H 03/24/16 17:58 LDL Cholesterol Direct 146 mg/dL (50-130) H 03/24/16 17:58 HDL Cholesterol 58 mg/dL (40-59) 03/24/16 17:58 Cholesterol/HDL Ratio 3.81 % 03/24/16 17:58 Vitamin B12 1005 pg/mL (211-911) H 04/29/16 10:16 Folate 12.78 ng/mL (7.3-26.0) 04/29/16 10:16 Urine Color Yellow (Yellow) 05/04/16 10:20 Urine Turbidity Cloudy (Clear) 05/04/16 10:20 Urine pH 5.0 (5.0-7.0) 05/04/16 10:20 Ur Specific [place] 1.017 (1.003-1.030) 05/04/16 10:20 Urine Protein 100 mg/dl mg/dL (Negative) 05/04/16 10:20 Urine Glucose (UA) >=500 mg/dL (Negative) 05/04/16 10:20 Urine Ketones Neg mg/dL (Negative) 05/04/16 10:20 Urine Blood Sm (Negative) 05/04/16 10:20 Urine Nitrite Neg (Negative) 05/04/16 10:20 Urine Bilirubin Neg (Negative) 05/04/16 10:20 Urine Urobilinogen 2.0 mg/dL (<2.0) 05/04/16 10:20 Ur Leukocyte Esterase Lg (Negative) 05/04/16 10:20 Urine WBC (Auto) > 182.0 /HPF (0.0-6.0) H 05/04/16 10:20 Urine RBC (Auto) 13.0 /HPF (0.0-6.0) 05/04/16 10:20 U Epithel Cells (Auto) < 1.0 /HPF (0-13.0) 05/04/16 10:20 Urine Bacteria (Auto) 1+ /HPF (Negative) 05/04/16 10:20 Urine WBC Clumps 3+ /HPF 05/04/16 10:20 Hyaline Casts 1 /LPF 03/24/16 14:27 Urine Mucus Few /HPF 05/04/16 10:20 Urine Yeast (Budding) 1+ /HPF 05/04/16 10:20 Ur Random Creatinine See scanned report 03/31/16 12:20 U Random Total Protein See scanned report 03/31/16 12:20 Urine Creatinine 85.5 mg/dL (0.1-20.0) H 04/20/16 11:50 Protein/Creatinin Ratio See scanned report 03/31/16 12:20 Urine Sodium 17 mEq/L 04/20/16 11:50 U Abnormal Prot Band 1 See scanned report 03/31/16 12:20 U Abnormal Prot Band 2 See scanned report 03/31/16 12:20 U Abnormal Prot Band 3 See scanned report 03/31/16 12:20 Ketones 1.0 mg/dL (0.2-2.8) 03/24/16 14:00 Blood Type A POSITIVE 04/29/16 10:05 Antibody Screen Negative 04/29/16 10:05 Crossmatch See Detail 04/29/16 10:05 Microbiology 05/04/16 09:36 Peripheral/Venous Blood Culture - Preliminary NO GROWTH AFTER 24 HOURS 05/04/16 09:38 Central Venous Line Blood Culture - Preliminary NO GROWTH AFTER 24 HOURS 05/04/16 10:20 Urine,Catheterized - Indwelling Catheter Urine Culture - Preliminary 04/16/16 18:30 Tracheal Aspirate Sputum Culture - Final Pseudomonas Aeruginosa 03/24/16 14:00 Peripheral/Venous Blood Culture - Final NO GROWTH AFTER 5 DAYS 03/24/16 14:13 Peripheral/Venous Blood Culture - Final NO GROWTH AFTER 5 DAYS 03/27/16 Unknown Tracheal Aspirate Sputum Culture - Final 03/26/16 18:00 Tracheal Aspirate Sputum Culture - Final 03/24/16 14:27 Urine,Catheterized - Indwelling Catheter Urine Culture - Final Beta Hemolytic Strep Group B
[2016-05-05] MEDS: HEPARIN/ 0.45% NACL-25,000 UNIT/500 ML 500 ML IV SCH (15:05)
[2016-05-06] MEDS: NOVOLOG SUB-Q SCH ×4 (00:36→18:00)
[2016-05-06] MEDS: DUONEB 0.5 MG-3 MG/3 ML SOLN IH SCH ×4 (02:25→19:57)
[2016-05-06 05:59] LABS: ISTAT Base Excess 6; ISTAT HCO3 28.9; ISTAT PCO2 36.2 (35-45); ISTAT PH 7.511 (7.35-7.45); ISTAT PO2 92 (80-105); ISTAT SO2 98; ISTAT TCO2 30
[2016-05-06] MEDS: HEPARIN/ 0.45% NACL-25,000 UNIT/500 ML 500 ML IV SCH ×2 (06:33→15:37)
[2016-05-06] MEDS: NORMODYNE PO SCH ×3 (08:48→21:56)
[2016-05-06] MEDS: LEVEMIR SUB-Q SCH (09:14)
[2016-05-06] MEDS: KEPPRA PO SCH ×2 (09:14→21:56)
[2016-05-06] MEDS: PEPCID PO SCH ×2 (09:15→21:56)
[2016-05-06] MEDS: CORDARONE PO SCH (09:15)
[2016-05-06] MEDS: BABY ASPIRIN PO SCH (09:17)
[2016-05-06] MEDS: TYLENOL PO PRN (09:26)
[2016-05-06] MEDS: ZESTRIL PO SCH ×2 (10:00→23:10)
[2016-05-06] MEDS: NORVASC PO SCH (10:00)
--- NOTE | 2016-05-06 11:35 | Progress Note ---
Assessment and Plan 61 y/o male with acute encephalopathy, secondary to embolic strokes, now with acute respiratory failure requiring re-intubation. 1. Fever: Still spiking. Cultures are negative. Still no clear source. Despite patient being on heparin, will check upper and lower Ext dopplers to ensure no clot. If these are negative will check RUQ ultrasound to look for acalculous cholecystitis. If that negative, may need another head CT to make sure no bleed. 2. Monitor positioning of trach. Distal obstruction is non-occlusive. Spoke with surgery and tract is not mature enough to change at this time. 3. Continue PSV trials as tolerated 4. Case management working on funding and possible placement CCT 31 minutes. Subjective Date of service: 05/06/16 Principal diagnosis: CVA, acute respiratory failure Interval history: No acute events. Bronched patient at the bedside yesterday to evaluate airway. Patient does have an area of non-occlusive obstruction that is resolved with elevating trach to about 90 degrees. Otherwise patent and open is the airway. Objective Vital Signs - 12hr 05/06/16 05/06/16 05/06/16 00:00 00:25 00:29 Temperature 100.7 F H Pulse Rate 90 83 82 Pulse Rate [ Bilateral] Pulse Rate [ From Monitor] Respiratory 27 H 23 Rate Respiratory Rate [Bilateral ] Blood Pressure 112/68 112/68 112/68 O2 Sat by Pulse 100 100 100 Oximetry O2 Sat by Pulse Oximetry [ Assessment] 05/06/16 05/06/16 05/06/16 00:43 01:00 01:01 Temperature Pulse Rate 82 82 82 Pulse Rate [ Bilateral] Pulse Rate [ From Monitor] Respiratory 23 20 22 Rate Respiratory Rate [Bilateral ] Blood Pressure 112/68 109/64 109/64 O2 Sat by Pulse 100 100 100 Oximetry O2 Sat by Pulse Oximetry [ Assessment] 05/06/16 05/06/16 05/06/16 02:00 02:01 02:28 Temperature Pulse Rate 85 84 Pulse Rate [ 85 Bilateral] Pulse Rate [ From Monitor] Respiratory 25 H 23 Rate Respiratory 16 Rate [Bilateral ] Blood Pressure 112/71 112/71 O2 Sat by Pulse 100 100 Oximetry O2 Sat by Pulse Oximetry [ Assessment] 05/06/16 05/06/16 05/06/16 02:42 02:44 03:00 Temperature Pulse Rate 87 Pulse Rate [ 90 Bilateral] Pulse Rate [ From Monitor] Respiratory 33 H Rate Respiratory 27 H Rate [Bilateral ] Blood Pressure 113/64 O2 Sat by Pulse 100 Oximetry O2 Sat by Pulse 100 Oximetry [ Assessment] 05/06/16 05/06/16 05/06/16 03:21 03:56 04:00 Temperature 99.2 F Pulse Rate 89 90 Pulse Rate [ Bilateral] Pulse Rate [ From Monitor] Respiratory 23 24 Rate Respiratory Rate [Bilateral ] Blood Pressure 113/64 113/64 O2 Sat by Pulse 100 100 Oximetry O2 Sat by Pulse Oximetry [ Assessment] 05/06/16 05/06/16 05/06/16 04:01 04:04 04:09 Temperature Pulse Rate 102 H 97 H Pulse Rate [ Bilateral] Pulse Rate [ From Monitor] Respiratory 17 29 H 27 H Rate Respiratory Rate [Bilateral ] Blood Pressure 134/71 134/71 O2 Sat by Pulse 100 100 100 Oximetry O2 Sat by Pulse Oximetry [ Assessment] 05/06/16 05/06/16 05/06/16 05:00 05:05 05:22 Temperature Pulse Rate 90 89 86 Pulse Rate [ Bilateral] Pulse Rate [ From Monitor] Respiratory 23 24 Rate Respiratory Rate [Bilateral ] Blood Pressure 118/70 118/70 118/70 O2 Sat by Pulse 100 98 100 Oximetry O2 Sat by Pulse Oximetry [ Assessment] 05/06/16 05/06/16 05/06/16 06:00 06:25 07:00 Temperature Pulse Rate 86 88 95 H Pulse Rate [ Bilateral] Pulse Rate [ From Monitor] Respiratory 22 22 20 Rate Respiratory Rate [Bilateral ] Blood Pressure 121/65 118/70 148/81 O2 Sat by Pulse 100 100 100 Oximetry O2 Sat by Pulse Oximetry [ Assessment] 05/06/16 05/06/16 05/06/16 07:47 07:48 08:00 Temperature 100.8 F H Pulse Rate 97 H Pulse Rate [ 94 H Bilateral] Pulse Rate [ 97 H From Monitor] Respiratory 28 H Rate Respiratory 16 Rate [Bilateral ] Blood Pressure 126/73 O2 Sat by Pulse 99 Oximetry O2 Sat by Pulse Oximetry [ Assessment] 05/06/16 05/06/16 05/06/16 08:05 08:11 08:12 Temperature Pulse Rate 98 H 97 H Pulse Rate [ 98 H Bilateral] Pulse Rate [ From Monitor] Respiratory 30 H Rate Respiratory 16 Rate [Bilateral ] Blood Pressure 126/73 121/65 O2 Sat by Pulse 99 100 Oximetry O2 Sat by Pulse Oximetry [ Assessment] 05/06/16 05/06/16 05/06/16 08:16 08:48 09:00 Temperature Pulse Rate 96 H 96 H Pulse Rate [ Bilateral] Pulse Rate [ From Monitor] Respiratory 23 Rate Respiratory Rate [Bilateral ] Blood Pressure 126/73 128/76 O2 Sat by Pulse 100 Oximetry O2 Sat by Pulse 100 Oximetry [ Assessment] 05/06/16 05/06/16 05/06/16 09:37 10:00 11:13 Temperature Pulse Rate 85 81 81 Pulse Rate [ Bilateral] Pulse Rate [ From Monitor] Respiratory 12 15 Rate Respiratory Rate [Bilateral ] Blood Pressure 128/76 117/68 117/68 O2 Sat by Pulse 100 100 100 Oximetry O2 Sat by Pulse Oximetry [ Assessment] Constitutional: no acute distress Eyes: non-icteric ENT: other (tracheotomy) Neck: supple Effort: normal Ascultation: Bilateral: clear, rhonchi (occasional) Percussion: Bilateral: not dull Cardiovascular: regular rate and rhythm Gastrointestinal: normoactive bowel sounds, soft, non-tender Extremities: no cyanosis, no edema Neurologic: other (GCS 4 on vent) CBC and BMP: 05/05/16 04:13 05/05/16 04:13 ABG, PT/INR, D-dimer: ABG POC ABG pH 7.511 (7.35-7.45) H 05/06/16 05:30 POC ABG pCO2 36.2 (35-45) 05/06/16 05:30 POC ABG pO2 92 (80-105) 05/06/16 05:30 POC ABG HCO3 28.9 05/06/16 05:30 POC ABG Total CO2 30 05/06/16 05:30 POC ABG O2 Sat 98 05/06/16 05:30 PT/INR, D-dimer PT 15.9 Sec. (12.2-14.9) H 04/23/16 10:45 INR 1.28 (0.87-1.13) H 04/23/16 10:45 Abnormal lab findings: Abnormal Labs 03/24/16 03/24/16 03/24/16 17:58 20:25 23:23 WBC RBC Hgb Hct MCV MCH MCHC RDW Plt Count Lymph % (Auto) Hart % (Auto) Lymph # Hart # Baso # Seg Neutrophils % Seg Neuts % (Manual) Lymphocytes % (Manual) Monocytes % (Manual) Seg Neutrophils # Seg Neutrophils # Man Lymphocytes # (Manual) Monocytes # (Manual) Basophils # (Manual) Percent Retic PT INR APTT Heparin Anti-Xa Level POC ABG pH POC ABG pCO2 POC ABG pO2 Sodium 169 H* Potassium 3.5 L Chloride 130.3 H Carbon Dioxide BUN 28 H Creatinine 1.8 H Glucose POC Glucose 112 H Calcium Phosphorus Iron TIBC Lactate Dehydrogenase Total Creatine Kinase NT-Pro-B Natriuret Pep Total Protein Albumin Ewyth-8-Pcyuspmqt Auheq-3-Dznimuqvz Beta Globulins PEP Interpretation Cholesterol 221 H LDL Cholesterol Direct 146 H Vitamin B12 Urine WBC (Auto) Urine Creatinine Crossmatch 03/25/16 03/25/16 03/25/16 05:56 05:56 05:56 WBC 21.3 H RBC 6.32 H Hgb 16.7 H Hct 52.7 H MCV 83 L MCH 27 L MCHC RDW Plt Count Lymph % (Auto) Hart % (Auto) Lymph # Hart # Baso # Seg Neutrophils % Seg Neuts % (Manual) 91.0 H Lymphocytes % (Manual) 4.0 L Monocytes % (Manual) Seg Neutrophils # Seg Neutrophils # Man 19.4 H Lymphocytes # (Manual) 0.9 L Monocytes # (Manual) 0.9 H Basophils # (Manual) Percent Retic PT INR APTT Heparin Anti-Xa Level POC ABG pH POC ABG pCO2 POC ABG pO2 Sodium 172 H* Potassium 3.5 L Chloride 130.4 H Carbon Dioxide BUN 29 H Creatinine 1.8 H Glucose 187 H POC Glucose Calcium Phosphorus Iron TIBC Lactate Dehydrogenase 460 H Total Creatine Kinase NT-Pro-B Natriuret Pep Total Protein Albumin Pujzy-2-Nmjetoqws Twheg-0-Hwslvnzys Beta Globulins PEP Interpretation Cholesterol LDL Cholesterol Direct Vitamin B12 Urine WBC (Auto) Urine Creatinine Crossmatch 03/25/16 03/25/16 03/25/16 07:55 12:19 13:00 WBC RBC Hgb Hct MCV MCH MCHC RDW Plt Count Lymph % (Auto) Hart % (Auto) Lymph # Hart # Baso # Seg Neutrophils % Seg Neuts % (Manual) Lymphocytes % (Manual) Monocytes % (Manual) Seg Neutrophils # Seg Neutrophils # Man Lymphocytes # (Manual) Monocytes # (Manual) Basophils # (Manual) Percent Retic PT INR APTT Heparin Anti-Xa Level POC ABG pH POC ABG pCO2 POC ABG pO2 Sodium Potassium Chloride Carbon Dioxide BUN Creatinine Glucose POC Glucose 231 H 314 H Calcium Phosphorus Iron TIBC Lactate Dehydrogenase Total Creatine Kinase NT-Pro-B Natriuret Pep Total Protein Albumin 3.4 L Eaunx-3-Ombuwvffz 0.4 H Lwrub-2-Caxcjqptr 1.1 H Beta Globulins 0.6 H PEP Interpretation see below H Cholesterol LDL Cholesterol Direct Vitamin B12 Urine WBC (Auto) Urine Creatinine Crossmatch 03/25/16 03/25/16 03/26/16 16:41 22:45 08:32 WBC RBC Hgb Hct MCV MCH MCHC RDW Plt Count Lymph % (Auto) Hart % (Auto) Lymph # Hart # Baso # Seg Neutrophils % Seg Neuts % (Manual) Lymphocytes % (Manual) Monocytes % (Manual) Seg Neutrophils # Seg Neutrophils # Man Lymphocytes # (Manual) Monocytes # (Manual) Basophils # (Manual) Percent Retic PT INR APTT Heparin Anti-Xa Level POC ABG pH POC ABG pCO2 POC ABG pO2 Sodium Potassium Chloride Carbon Dioxide BUN Creatinine Glucose POC Glucose 444 H 326 H 360 H Calcium Phosphorus Iron TIBC Lactate Dehydrogenase Total Creatine Kinase NT-Pro-B Natriuret Pep Total Protein Albumin Zgeab-3-Ovqsuuxho Awhym-3-Lhzotaitc Beta Globulins PEP Interpretation Cholesterol LDL Cholesterol Direct Vitamin B12 Urine WBC (Auto) Urine Creatinine Crossmatch 03/26/16 03/26/16 03/26/16 12:38 15:33 15:47 WBC RBC Hgb Hct MCV MCH MCHC RDW Plt Count Lymph % (Auto) Hart % (Auto) Lymph # Hart # Baso # Seg Neutrophils % Seg Neuts % (Manual) Lymphocytes % (Manual) Monocytes % (Manual) Seg Neutrophils # Seg Neutrophils # Man Lymphocytes # (Manual) Monocytes # (Manual) Basophils # (Manual) Percent Retic PT INR APTT Heparin Anti-Xa Level POC ABG pH 7.511 H POC ABG pCO2 26.5 L POC ABG pO2 70 L Sodium Potassium Chloride Carbon Dioxide BUN Creatinine Glucose POC Glucose 280 H 174 H Calcium Phosphorus Iron TIBC Lactate Dehydrogenase Total Creatine Kinase NT-Pro-B Natriuret Pep Total Protein Albumin Uiyqv-3-Fxnyabrcc Nynbg-9-Avtdotcdf Beta Globulins PEP Interpretation Cholesterol LDL Cholesterol Direct Vitamin B12 Urine WBC (Auto) Urine Creatinine Crossmatch 1103/26/16 03/26/16 16:47 16:47 18:51 WBC 14.0 H RBC 5.17 H Hgb Hct MCV MCH 26 L MCHC 31 L RDW Plt Count 139 L Lymph % (Auto) Hart % (Auto) Lymph # Hart # Baso # Seg Neutrophils % Seg Neuts % (Manual) Lymphocytes % (Manual) Monocytes % (Manual) Seg Neutrophils # Seg Neutrophils # Man Lymphocytes # (Manual) Monocytes # (Manual) Basophils # (Manual) Percent Retic PT INR APTT Heparin Anti-Xa Level POC ABG pH POC ABG pCO2 33.9 L POC ABG pO2 150 H Sodium 164 H* Potassium 3.4 L Chloride 128.5 H Carbon Dioxide BUN 30 H Creatinine 2.2 H Glucose 121 H POC Glucose Calcium 8.1 L Phosphorus Iron TIBC Lactate Dehydrogenase Total Creatine Kinase NT-Pro-B Natriuret Pep Total Protein Albumin Dgbbu-1-Gtoeogryd Pyeld-3-Xvdtzhtrj Beta Globulins PEP Interpretation Cholesterol LDL Cholesterol Direct Vitamin B12 Urine WBC (Auto) Urine Creatinine Crossmatch 03/27/16 03/27/16 03/27/16 02:19 05:47 06:02 WBC RBC Hgb Hct MCV MCH MCHC RDW Plt Count Lymph % (Auto) Hart % (Auto) Lymph # Hart # Baso # Seg Neutrophils % Seg Neuts % (Manual) Lymphocytes % (Manual) Monocytes % (Manual) Seg Neutrophils # Seg Neutrophils # Man Lymphocytes # (Manual) Monocytes # (Manual) Basophils # (Manual) Percent Retic PT INR APTT Heparin Anti-Xa Level POC ABG pH POC ABG pCO2 27.3 L 30.3 L POC ABG pO2 50 L 112 H Sodium 158 H Potassium Chloride 126.7 H Carbon Dioxide 20 L BUN 25 H Creatinine 1.7 H Glucose POC Glucose Calcium 7.0 L Phosphorus Iron TIBC Lactate Dehydrogenase Total Creatine Kinase NT-Pro-B Natriuret Pep Total Protein Albumin Gsjwb-0-Cxbkjqxev Ypagx-6-Yachovqal Beta Globulins PEP Interpretation Cholesterol LDL Cholesterol Direct Vitamin B12 Urine WBC (Auto) Urine Creatinine Crossmatch 03/27/16 03/27/16 03/27/16 07:51 09:20 11:45 WBC 14.2 H RBC Hgb Hct MCV 83 L MCH 27 L MCHC RDW Plt Count 113 L Lymph % (Auto) Hart % (Auto) Lymph # Hart # Baso # Seg Neutrophils % Seg Neuts % (Manual) Lymphocytes % (Manual) Monocytes % (Manual) Seg Neutrophils # Seg Neutrophils # Man Lymphocytes # (Manual) Monocytes # (Manual) Basophils # (Manual) Percent Retic PT INR APTT Heparin Anti-Xa Level POC ABG pH POC ABG pCO2 POC ABG pO2 Sodium Potassium Chloride Carbon Dioxide BUN Creatinine Glucose POC Glucose 124 H 241 H Calcium Phosphorus Iron TIBC Lactate Dehydrogenase Total Creatine Kinase NT-Pro-B Natriuret Pep Total Protein Albumin Gcpvb-9-Nqbobfszg Qugiq-8-Wnxbrvqov Beta Globulins PEP Interpretation Cholesterol LDL Cholesterol Direct Vitamin B12 Urine WBC (Auto) Urine Creatinine Crossmatch 03/27/16 03/27/16 03/28/16 16:39 22:03 03:29 WBC RBC Hgb Hct MCV MCH MCHC RDW Plt Count Lymph % (Auto) Hart % (Auto) Lymph # Hart # Baso # Seg Neutrophils % Seg Neuts % (Manual) Lymphocytes % (Manual) Monocytes % (Manual) Seg Neutrophils # Seg Neutrophils # Man Lymphocytes # (Manual) Monocytes # (Manual) Basophils # (Manual) Percent Retic PT INR APTT Heparin Anti-Xa Level POC ABG pH POC ABG pCO2 POC ABG pO2 Sodium Potassium Chloride Carbon Dioxide BUN Creatinine Glucose POC Glucose 266 H 167 H 241 H Calcium Phosphorus Iron TIBC Lactate Dehydrogenase Total Creatine Kinase NT-Pro-B Natriuret Pep Total Protein Albumin Slpjf-5-Impawgglv Zftyw-4-Ecxeikdhy Beta Globulins PEP Interpretation Cholesterol LDL Cholesterol Direct Vitamin B12 Urine WBC (Auto) Urine Creatinine Crossmatch 03/28/16 03/28/16 03/28/16 05:00 05:00 05:00 WBC RBC Hgb Hct MCV 83 L MCH 27 L MCHC RDW Plt Count 106 L Lymph % (Auto) Hart % (Auto) 10.1 H Lymph # Hart # 1.0 H Baso # Seg Neutrophils % 75.1 H Seg Neuts % (Manual) Lymphocytes % (Manual) Monocytes % (Manual) Seg Neutrophils # Seg Neutrophils # Man Lymphocytes # (Manual) Monocytes # (Manual) Basophils # (Manual) Percent Retic PT INR APTT Heparin Anti-Xa Level POC ABG pH POC ABG pCO2 POC ABG pO2 Sodium 147 H D Potassium 3.1 L D Chloride 112.3 H Carbon Dioxide 21 L BUN Creatinine Glucose 208 H POC Glucose Calcium 7.0 L Phosphorus 2.2 L Iron TIBC Lactate Dehydrogenase Total Creatine Kinase NT-Pro-B Natriuret Pep Total Protein Albumin Ufcni-9-Vqwppabtl Llklp-1-Fkgnhnhes Beta Globulins PEP Interpretation Cholesterol LDL Cholesterol Direct Vitamin B12 Urine WBC (Auto) Urine Creatinine Crossmatch 03/28/16 03/28/16 03/28/16 05:14 08:41 10:56 WBC RBC Hgb Hct MCV MCH MCHC RDW Plt Count Lymph % (Auto) Hart % (Auto) Lymph # Hart # Baso # Seg Neutrophils % Seg Neuts % (Manual) Lymphocytes % (Manual) Monocytes % (Manual) Seg Neutrophils # Seg Neutrophils # Man Lymphocytes # (Manual) Monocytes # (Manual) Basophils # (Manual) Percent Retic PT INR APTT Heparin Anti-Xa Level POC ABG pH 7.457 H POC ABG pCO2 29.7 L 27.7 L POC ABG pO2 Sodium Potassium Chloride Carbon Dioxide BUN Creatinine Glucose POC Glucose 228 H Calcium Phosphorus Iron TIBC Lactate Dehydrogenase Total Creatine Kinase NT-Pro-B Natriuret Pep Total Protein Albumin Rcejq-1-Iofzcpwhq Hztzl-7-Oyuwxtqsk Beta Globulins PEP Interpretation Cholesterol LDL Cholesterol Direct Vitamin B12 Urine WBC (Auto) Urine Creatinine Crossmatch 03/28/16 03/28/16 03/28/16 11:37 13:29 16:22 WBC RBC Hgb Hct MCV MCH MCHC RDW Plt Count Lymph % (Auto) Hart % (Auto) Lymph # Hart # Baso # Seg Neutrophils % Seg Neuts % (Manual) Lymphocytes % (Manual) Monocytes % (Manual) Seg Neutrophils # Seg Neutrophils # Man Lymphocytes # (Manual) Monocytes # (Manual) Basophils # (Manual) Percent Retic PT INR APTT Heparin Anti-Xa Level POC ABG pH POC ABG pCO2 POC ABG pO2 Sodium Potassium Chloride Carbon Dioxide BUN Creatinine Glucose POC Glucose 226 H 200 H Calcium Phosphorus Iron TIBC Lactate Dehydrogenase Total Creatine Kinase 356 H NT-Pro-B Natriuret Pep Total Protein Albumin Zhzka-2-Bzmdvmmgl Gidfy-6-Bqkoqardg Beta Globulins PEP Interpretation Cholesterol LDL Cholesterol Direct Vitamin B12 Urine WBC (Auto) Urine Creatinine Crossmatch 03/28/16 03/29/16 03/29/16 21:48 04:50 04:50 WBC RBC Hgb 11.5 L Hct 35.3 L MCV 81 L MCH 26 L MCHC RDW Plt Count 97 L Lymph % (Auto) Hart % (Auto) 11.7 H Lymph # Hart # 1.1 H Baso # Seg Neutrophils % Seg Neuts % (Manual) Lymphocytes % (Manual) Monocytes % (Manual) Seg Neutrophils # Seg Neutrophils # Man Lymphocytes # (Manual) Monocytes # (Manual) Basophils # (Manual) Percent Retic PT INR APTT Heparin Anti-Xa Level POC ABG pH POC ABG pCO2 POC ABG pO2 Sodium 136 L D Potassium 3.3 L Chloride Carbon Dioxide 20 L BUN Creatinine Glucose 386 H POC Glucose 188 H Calcium 6.8 L Phosphorus 1.6 L D Iron TIBC Lactate Dehydrogenase Total Creatine Kinase NT-Pro-B Natriuret Pep Total Protein Albumin Pvvve-1-Fcbireprl Cncda-6-Ycesoyqhu Beta Globulins PEP Interpretation Cholesterol LDL Cholesterol Direct Vitamin B12 Urine WBC (Auto) Urine Creatinine Crossmatch 03/29/16 03/29/16 03/29/16 08:10 11:12 16:09 WBC RBC Hgb Hct MCV MCH MCHC RDW Plt Count Lymph % (Auto) Hart % (Auto) Lymph # Hart # Baso # Seg Neutrophils % Seg Neuts % (Manual) Lymphocytes % (Manual) Monocytes % (Manual) Seg Neutrophils # Seg Neutrophils # Man Lymphocytes # (Manual) Monocytes # (Manual) Basophils # (Manual) Percent Retic PT INR APTT Heparin Anti-Xa Level POC ABG pH POC ABG pCO2 POC ABG pO2 Sodium Potassium Chloride Carbon Dioxide BUN Creatinine Glucose POC Glucose 230 H 180 H 46 L Calcium Phosphorus Iron TIBC Lactate Dehydrogenase Total Creatine Kinase NT-Pro-B Natriuret Pep Total Protein Albumin Jezpk-0-Jrlrwkgqb Djbqv-1-Lijzsxgiu Beta Globulins PEP Interpretation Cholesterol LDL Cholesterol Direct Vitamin B12 Urine WBC (Auto) Urine Creatinine Crossmatch 03/29/16 03/29/16 03/30/16 16:12 18:15 02:53 WBC RBC Hgb Hct MCV MCH MCHC RDW Plt Count Lymph % (Auto) Hart % (Auto) Lymph # Hart # Baso # Seg Neutrophils % Seg Neuts % (Manual) Lymphocytes % (Manual) Monocytes % (Manual) Seg Neutrophils # Seg Neutrophils # Man Lymphocytes # (Manual) Monocytes # (Manual) Basophils # (Manual) Percent Retic PT INR APTT Heparin Anti-Xa Level POC ABG pH POC ABG pCO2 POC ABG pO2 Sodium Potassium Chloride Carbon Dioxide BUN Creatinine Glucose POC Glucose 52 L 118 H 130 H Calcium Phosphorus Iron TIBC Lactate Dehydrogenase Total Creatine Kinase NT-Pro-B Natriuret Pep Total Protein Albumin Dyhjp-5-Cnrvzaqep Cdlfb-3-Ckfabodgl Beta Globulins PEP Interpretation Cholesterol LDL Cholesterol Direct Vitamin B12 Urine WBC (Auto) Urine Creatinine Crossmatch 03/30/16 03/30/16 03/30/16 04:00 04:00 05:29 WBC RBC Hgb Hct MCV 81 L MCH 26 L MCHC RDW Plt Count 116 L Lymph % (Auto) 10.8 L Hart % (Auto) 13.1 H Lymph # 1.0 L Hart # 1.3 H Baso # Seg Neutrophils % 74.2 H Seg Neuts % (Manual) Lymphocytes % (Manual) Monocytes % (Manual) Seg Neutrophils # Seg Neutrophils # Man Lymphocytes # (Manual) Monocytes # (Manual) Basophils # (Manual) Percent Retic PT INR APTT Heparin Anti-Xa Level POC ABG pH 7.522 H POC ABG pCO2 22.7 L POC ABG pO2 137 H Sodium 147 H D Potassium Chloride 115.5 H Carbon Dioxide 20 L BUN Creatinine Glucose 116 H POC Glucose Calcium 7.6 L Phosphorus 2.3 L D Iron TIBC Lactate Dehydrogenase Total Creatine Kinase NT-Pro-B Natriuret Pep Total Protein Albumin Fufrv-2-Clvonrjfi Scauk-0-Ynlgtllus Beta Globulins PEP Interpretation Cholesterol LDL Cholesterol Direct Vitamin B12 Urine WBC (Auto) Urine Creatinine Crossmatch 03/30/16 03/30/16 03/30/16 05:47 08:05 08:59 WBC RBC Hgb Hct MCV MCH MCHC RDW Plt Count Lymph % (Auto) Hart % (Auto) Lymph # Hart # Baso # Seg Neutrophils % Seg Neuts % (Manual) Lymphocytes % (Manual) Monocytes % (Manual) Seg Neutrophils # Seg Neutrophils # Man Lymphocytes # (Manual) Monocytes # (Manual) Basophils # (Manual) Percent Retic PT INR APTT Heparin Anti-Xa Level POC ABG pH POC ABG pCO2 26.2 L POC ABG pO2 115 H Sodium Potassium Chloride Carbon Dioxide BUN Creatinine Glucose POC Glucose 138 H 171 H Calcium Phosphorus Iron TIBC Lactate Dehydrogenase Total Creatine Kinase NT-Pro-B Natriuret Pep Total Protein Albumin Rpsjn-4-Pejakhswz Paueb-6-Adseiefcl Beta Globulins PEP Interpretation Cholesterol LDL Cholesterol Direct Vitamin B12 Urine WBC (Auto) Urine Creatinine Crossmatch 03/30/16 03/30/16 03/30/16 12:11 12:11 16:39 WBC RBC Hgb Hct MCV MCH MCHC RDW Plt Count Lymph % (Auto) Hart % (Auto) Lymph # Hart # Baso # Seg Neutrophils % Seg Neuts % (Manual) Lymphocytes % (Manual) Monocytes % (Manual) Seg Neutrophils # Seg Neutrophils # Man Lymphocytes # (Manual) Monocytes # (Manual) Basophils # (Manual) Percent Retic PT INR APTT Heparin Anti-Xa Level POC ABG pH 7.476 H POC ABG pCO2 29.0 L POC ABG pO2 Sodium Potassium Chloride Carbon Dioxide BUN Creatinine Glucose POC Glucose 142 H 59 L Calcium Phosphorus Iron TIBC Lactate Dehydrogenase Total Creatine Kinase NT-Pro-B Natriuret Pep Total Protein Albumin Jakkr-5-Uhupevzkc Cejql-6-Brfiikxmy Beta Globulins PEP Interpretation Cholesterol LDL Cholesterol Direct Vitamin B12 Urine WBC (Auto) Urine Creatinine Crossmatch 03/30/16 03/30/16 03/31/16 18:41 21:59 05:02 WBC RBC Hgb Hct MCV MCH MCHC RDW Plt Count Lymph % (Auto) Hart % (Auto) Lymph # Hart # Baso # Seg Neutrophils % Seg Neuts % (Manual) Lymphocytes % (Manual) Monocytes % (Manual) Seg Neutrophils # Seg Neutrophils # Man Lymphocytes # (Manual) Monocytes # (Manual) Basophils # (Manual) Percent Retic PT INR APTT Heparin Anti-Xa Level POC ABG pH 7.519 H POC ABG pCO2 21.8 L POC ABG pO2 142 H Sodium Potassium Chloride Carbon Dioxide BUN Creatinine Glucose POC Glucose 145 H 154 H Calcium Phosphorus Iron TIBC Lactate Dehydrogenase Total Creatine Kinase NT-Pro-B Natriuret Pep Total Protein Albumin Phcuk-2-Baaxxyjap Wemar-9-Qqtmrgawe Beta Globulins PEP Interpretation Cholesterol LDL Cholesterol Direct Vitamin B12 Urine WBC (Auto) Urine Creatinine Crossmatch 03/31/16 03/31/16 03/31/16 05:15 05:15 05:15 WBC 13.4 H RBC 5.21 H Hgb Hct MCV 81 L MCH 26 L MCHC RDW Plt Count Lymph % (Auto) 9.5 L Hart % (Auto) 14.0 H Lymph # Hart # 1.9 H Baso # Seg Neutrophils % 75.0 H Seg Neuts % (Manual) Lymphocytes % (Manual) Monocytes % (Manual) Seg Neutrophils # 10.1 H Seg Neutrophils # Man Lymphocytes # (Manual) Monocytes # (Manual) Basophils # (Manual) Percent Retic PT INR APTT Heparin Anti-Xa Level POC ABG pH POC ABG pCO2 POC ABG pO2 Sodium Potassium Chloride 108.5 H Carbon Dioxide 19 L BUN Creatinine Glucose 188 H POC Glucose Calcium Phosphorus Iron TIBC Lactate Dehydrogenase Total Creatine Kinase NT-Pro-B Natriuret Pep 1089 H Total Protein Albumin [place]-7-Pqroaaqgg Dzsvs-8-Qywiwlyay Beta Globulins PEP Interpretation Cholesterol LDL Cholesterol Direct Vitamin B12 Urine WBC (Auto) Urine Creatinine Crossmatch 03/31/16 03/31/16 03/31/16 07:23 11:12 15:20 WBC RBC Hgb Hct MCV MCH MCHC RDW Plt Count Lymph % (Auto) Hart % (Auto) Lymph # Hart # Baso # Seg Neutrophils % Seg Neuts % (Manual) Lymphocytes % (Manual) Monocytes % (Manual) Seg Neutrophils # Seg Neutrophils # Man Lymphocytes # (Manual) Monocytes # (Manual) Basophils # (Manual) Percent Retic PT INR APTT Heparin Anti-Xa Level POC ABG pH POC ABG pCO2 POC ABG pO2 Sodium Potassium Chloride Carbon Dioxide BUN Creatinine Glucose POC Glucose 233 H 228 H 208 H Calcium Phosphorus Iron TIBC Lactate Dehydrogenase Total Creatine Kinase NT-Pro-B Natriuret Pep Total Protein Albumin Ouknn-4-Pilfvohmd Tkcwo-3-Bbbrvppdn Beta Globulins PEP Interpretation Cholesterol LDL Cholesterol Direct Vitamin B12 Urine WBC (Auto) Urine Creatinine Crossmatch 03/31/16 04/01/16 04/01/16 21:27 04:41 05:35 WBC 12.1 H RBC Hgb Hct MCV 81 L MCH 26 L MCHC RDW Plt Count Lymph % (Auto) 8.5 L Hart % (Auto) 14.0 H Lymph # 1.0 L Hart # 1.7 H Baso # Seg Neutrophils % 76.2 H Seg Neuts % (Manual) Lymphocytes % (Manual) Monocytes % (Manual) Seg Neutrophils # 9.2 H Seg Neutrophils # Man Lymphocytes # (Manual) Monocytes # (Manual) Basophils # (Manual) Percent Retic PT INR APTT Heparin Anti-Xa Level POC ABG pH 7.455 H POC ABG pCO2 31.0 L POC ABG pO2 Sodium Potassium Chloride Carbon Dioxide BUN Creatinine Glucose POC Glucose 162 H Calcium Phosphorus Iron TIBC Lactate Dehydrogenase Total Creatine Kinase NT-Pro-B Natriuret Pep Total Protein Albumin Ympsi-5-Izneutbja Ffdum-0-Powyghvyu Beta Globulins PEP Interpretation Cholesterol LDL Cholesterol Direct Vitamin B12 Urine WBC (Auto) Urine Creatinine Crossmatch 04/01/16 04/01/16 04/01/16 05:35 08:44 12:49 WBC RBC Hgb Hct MCV MCH MCHC RDW Plt Count Lymph % (Auto) Hart % (Auto) Lymph # Hart # Baso # Seg Neutrophils % Seg Neuts % (Manual) Lymphocytes % (Manual) Monocytes % (Manual) Seg Neutrophils # Seg Neutrophils # Man Lymphocytes # (Manual) Monocytes # (Manual) Basophils # (Manual) Percent Retic PT INR APTT Heparin Anti-Xa Level POC ABG pH POC ABG pCO2 POC ABG pO2 Sodium Potassium Chloride Carbon Dioxide BUN Creatinine Glucose 256 H POC Glucose 257 H 279 H Calcium 8.0 L Phosphorus Iron TIBC Lactate Dehydrogenase Total Creatine Kinase NT-Pro-B Natriuret Pep 1205 H Total Protein Albumin Nwafe-8-Dtlgtrdwe Pyfyl-8-Tkwekvejd Beta Globulins PEP Interpretation Cholesterol LDL Cholesterol Direct Vitamin B12 Urine WBC (Auto) Urine Creatinine Crossmatch 04/01/16 04/02/16 04/02/16 18:12 00:42 04:17 WBC RBC Hgb Hct MCV MCH MCHC RDW Plt Count Lymph % (Auto) Hart % (Auto) Lymph # Hart # Baso # Seg Neutrophils % Seg Neuts % (Manual) Lymphocytes % (Manual) Monocytes % (Manual) Seg Neutrophils # Seg Neutrophils # Man Lymphocytes # (Manual) Monocytes # (Manual) Basophils # (Manual) Percent Retic PT INR APTT Heparin Anti-Xa Level POC ABG pH 7.582 H POC ABG pCO2 26.8 L POC ABG pO2 Sodium Potassium Chloride Carbon Dioxide BUN Creatinine Glucose POC Glucose 168 H 282 H Calcium Phosphorus Iron TIBC Lactate Dehydrogenase Total Creatine Kinase NT-Pro-B Natriuret Pep Total Protein Albumin Mycgp-0-Yzkhmucgs Wfsgh-1-Vogbgbqln Beta Globulins PEP Interpretation Cholesterol LDL Cholesterol Direct Vitamin B12 Urine WBC (Auto) Urine Creatinine Crossmatch 04/02/16 04/02/16 04/02/16 05:00 05:00 06:27 WBC 12.4 H RBC Hgb Hct MCV 81 L MCH 26 L MCHC RDW Plt Count Lymph % (Auto) 6.4 L Hart % (Auto) 13.3 H Lymph # 0.8 L Hart # 1.7 H Baso # Seg Neutrophils % 79.4 H Seg Neuts % (Manual) Lymphocytes % (Manual) Monocytes % (Manual) Seg Neutrophils # 9.9 H Seg Neutrophils # Man Lymphocytes # (Manual) Monocytes # (Manual) Basophils # (Manual) Percent Retic PT INR APTT Heparin Anti-Xa Level POC ABG pH POC ABG pCO2 POC ABG pO2 Sodium 146 H Potassium Chloride Carbon Dioxide BUN Creatinine Glucose 334 H POC Glucose 317 H Calcium 8.0 L Phosphorus Iron TIBC Lactate Dehydrogenase Total Creatine Kinase NT-Pro-B Natriuret Pep Total Protein Albumin Rxmna-7-Txgfxkvlf Zgfax-1-Lrngbwmqy Beta Globulins PEP Interpretation Cholesterol LDL Cholesterol Direct Vitamin B12 Urine WBC (Auto) Urine Creatinine Crossmatch 04/02/16 04/02/16 04/02/16 11:51 13:10 17:24 WBC RBC Hgb Hct MCV MCH MCHC RDW Plt Count Lymph % (Auto) Hart % (Auto) Lymph # Hart # Baso # Seg Neutrophils % Seg Neuts % (Manual) Lymphocytes % (Manual) Monocytes % (Manual) Seg Neutrophils # Seg Neutrophils # Man Lymphocytes # (Manual) Monocytes # (Manual) Basophils # (Manual) Percent Retic PT INR APTT Heparin Anti-Xa Level POC ABG pH 7.518 H POC ABG pCO2 POC ABG pO2 Sodium Potassium Chloride Carbon Dioxide BUN Creatinine Glucose POC Glucose 278 H 195 H Calcium Phosphorus Iron TIBC Lactate Dehydrogenase Total Creatine Kinase NT-Pro-B Natriuret Pep Total Protein Albumin Jrhyf-8-Jjuffcobj Ettbb-9-Vjmmolojg Beta Globulins PEP Interpretation Cholesterol LDL Cholesterol Direct Vitamin B12 Urine WBC (Auto) Urine Creatinine Crossmatch 04/03/16 04/03/16 04/03/16 00:18 04:10 04:10 WBC 14.3 H RBC Hgb Hct MCV 81 L MCH 26 L MCHC RDW Plt Count Lymph % (Auto) 9.0 L Hart % (Auto) 10.7 H Lymph # Hart # 1.5 H Baso # 0.2 H Seg Neutrophils % 78.5 H Seg Neuts % (Manual) Lymphocytes % (Manual) Monocytes % (Manual) Seg Neutrophils # 11.3 H Seg Neutrophils # Man Lymphocytes # (Manual) Monocytes # (Manual) Basophils # (Manual) Percent Retic PT INR APTT Heparin Anti-Xa Level POC ABG pH POC ABG pCO2 POC ABG pO2 Sodium 148 H Potassium Chloride 108.1 H Carbon Dioxide BUN 21 H Creatinine Glucose 227 H POC Glucose 144 H Calcium 8.2 L Phosphorus Iron TIBC Lactate Dehydrogenase Total Creatine Kinase NT-Pro-B Natriuret Pep Total Protein Albumin Ghkba-8-Jmzsatfnd Anjaw-1-Rizmjidvt Beta Globulins PEP Interpretation Cholesterol LDL Cholesterol Direct Vitamin B12 Urine WBC (Auto) Urine Creatinine Crossmatch 04/03/16 04/03/16 04/04/16 11:14 17:10 04:00 WBC 14.5 H RBC Hgb Hct MCV 81 L MCH 26 L MCHC RDW Plt Count Lymph % (Auto) 7.2 L Hart % (Auto) 7.6 H Lymph # 1.0 L Hart # 1.1 H Baso # Seg Neutrophils % 84.5 H Seg Neuts % (Manual) Lymphocytes % (Manual) Monocytes % (Manual) Seg Neutrophils # 12.3 H Seg Neutrophils # Man Lymphocytes # (Manual) Monocytes # (Manual) Basophils # (Manual) Percent Retic PT INR APTT Heparin Anti-Xa Level POC ABG pH POC ABG pCO2 POC ABG pO2 Sodium Potassium Chloride Carbon Dioxide BUN Creatinine Glucose POC Glucose 267 H 212 H Calcium Phosphorus Iron TIBC Lactate Dehydrogenase Total Creatine Kinase NT-Pro-B Natriuret Pep Total Protein Albumin Houop-5-Mtcvtxurg Lgwnb-9-Gtdxncvin Beta Globulins PEP Interpretation Cholesterol LDL Cholesterol Direct Vitamin B12 Urine WBC (Auto) Urine Creatinine Crossmatch 04/04/16 04/04/16 04/04/16 05:00 09:55 09:55 WBC RBC Hgb 11.5 L Hct MCV MCH MCHC RDW Plt Count Lymph % (Auto) Hart % (Auto) Lymph # Hart # Baso # Seg Neutrophils % Seg Neuts % (Manual) Lymphocytes % (Manual) Monocytes % (Manual) Seg Neutrophils # Seg Neutrophils # Man Lymphocytes # (Manual) Monocytes # (Manual) Basophils # (Manual) Percent Retic PT INR APTT 42.1 H Heparin Anti-Xa Level POC ABG pH POC ABG pCO2 POC ABG pO2 Sodium 146 H Potassium Chloride Carbon Dioxide BUN 22 H Creatinine Glucose 128 H POC Glucose Calcium Phosphorus Iron TIBC Lactate Dehydrogenase Total Creatine Kinase NT-Pro-B Natriuret Pep Total Protein Albumin Hxqua-5-Amvxzvpmu Irjhe-2-Jkcdyomis Beta Globulins PEP Interpretation Cholesterol LDL Cholesterol Direct Vitamin B12 Urine WBC (Auto) Urine Creatinine Crossmatch 04/04/16 04/04/16 04/04/16 11:45 17:49 17:55 WBC RBC Hgb Hct MCV MCH MCHC RDW Plt Count Lymph % (Auto) Hart % (Auto) Lymph # Hart # Baso # Seg Neutrophils % Seg Neuts % (Manual) Lymphocytes % (Manual) Monocytes % (Manual) Seg Neutrophils # Seg Neutrophils # Man Lymphocytes # (Manual) Monocytes # (Manual) Basophils # (Manual) Percent Retic PT INR APTT Heparin Anti-Xa Level 1.19 H POC ABG pH POC ABG pCO2 POC ABG pO2 Sodium Potassium Chloride Carbon Dioxide BUN Creatinine Glucose POC Glucose 231 H 186 H Calcium Phosphorus Iron TIBC Lactate Dehydrogenase Total Creatine Kinase NT-Pro-B Natriuret Pep Total Protein Albumin Rsapv-4-Jrnlcrbnn Qbcfu-2-Vvhxvxvrp Beta Globulins PEP Interpretation Cholesterol LDL Cholesterol Direct Vitamin B12 Urine WBC (Auto) Urine Creatinine Crossmatch 04/05/16 04/05/16 04/05/16 00:35 05:32 05:42 WBC RBC Hgb Hct MCV MCH MCHC RDW Plt Count Lymph % (Auto) Hart % (Auto) Lymph # Hart # Baso # Seg Neutrophils % Seg Neuts % (Manual) Lymphocytes % (Manual) Monocytes % (Manual) Seg Neutrophils # Seg Neutrophils # Man Lymphocytes # (Manual) Monocytes # (Manual) Basophils # (Manual) Percent Retic PT INR APTT Heparin Anti-Xa Level POC ABG pH 7.491 H POC ABG pCO2 POC ABG pO2 Sodium Potassium Chloride Carbon Dioxide BUN Creatinine Glucose POC Glucose 192 H 242 H Calcium Phosphorus Iron TIBC Lactate Dehydrogenase Total Creatine Kinase NT-Pro-B Natriuret Pep Total Protein Albumin Oyojt-1-Dxxuqmmng Mydop-5-Cfhpqmepn Beta Globulins PEP Interpretation Cholesterol LDL Cholesterol Direct Vitamin B12 Urine WBC (Auto) Urine Creatinine Crossmatch 04/05/16 04/05/16 04/05/16 06:20 06:20 12:19 WBC 13.9 H RBC Hgb 11.6 L Hct MCV 81 L MCH 26 L MCHC RDW Plt Count Lymph % (Auto) 9.6 L Hart % (Auto) 8.7 H Lymph # Hart # 1.2 H Baso # Seg Neutrophils % 80.9 H Seg Neuts % (Manual) Lymphocytes % (Manual) Monocytes % (Manual) Seg Neutrophils # 11.3 H Seg Neutrophils # Man Lymphocytes # (Manual) Monocytes # (Manual) Basophils # (Manual) Percent Retic PT INR APTT Heparin Anti-Xa Level POC ABG pH POC ABG pCO2 POC ABG pO2 Sodium 148 H Potassium Chloride Carbon Dioxide BUN 23 H Creatinine Glucose 242 H POC Glucose 187 H Calcium Phosphorus Iron TIBC Lactate Dehydrogenase Total Creatine Kinase NT-Pro-B Natriuret Pep Total Protein Albumin Ntase-7-Lyezaiyje Oywil-2-Pjzyvkglj Beta Globulins PEP Interpretation Cholesterol LDL Cholesterol Direct Vitamin B12 Urine WBC (Auto) Urine Creatinine Crossmatch 04/05/16 04/05/16 04/06/16 17:10 23:45 05:23 WBC 13.0 H RBC Hgb Hct MCV 82 L MCH 26 L MCHC 31 L RDW Plt Count Lymph % (Auto) 6.7 L Hart % (Auto) 8.3 H Lymph # 0.9 L Hart # 1.1 H Baso # Seg Neutrophils % 84.6 H Seg Neuts % (Manual) Lymphocytes % (Manual) Monocytes % (Manual) Seg Neutrophils # 11.0 H Seg Neutrophils # Man Lymphocytes # (Manual) Monocytes # (Manual) Basophils # (Manual) Percent Retic PT INR APTT Heparin Anti-Xa Level POC ABG pH POC ABG pCO2 POC ABG pO2 Sodium Potassium Chloride Carbon Dioxide BUN Creatinine Glucose POC Glucose 169 H 202 H Calcium Phosphorus Iron TIBC Lactate Dehydrogenase Total Creatine Kinase NT-Pro-B Natriuret Pep Total Protein Albumin Ifooe-3-Ozoqfmuzk Joddu-7-Ckpwzpdob Beta Globulins PEP Interpretation Cholesterol LDL Cholesterol Direct Vitamin B12 Urine WBC (Auto) Urine Creatinine Crossmatch 04/06/16 04/06/16 04/06/16 05:23 05:23 06:11 WBC RBC Hgb Hct MCV MCH MCHC RDW Plt Count Lymph % (Auto) Hart % (Auto) Lymph # Hart # Baso # Seg Neutrophils % Seg Neuts % (Manual) Lymphocytes % (Manual) Monocytes % (Manual) Seg Neutrophils # Seg Neutrophils # Man Lymphocytes # (Manual) Monocytes # (Manual) Basophils # (Manual) Percent Retic PT INR APTT Heparin Anti-Xa Level 0.21 L POC ABG pH POC ABG pCO2 POC ABG pO2 Sodium 153 H Potassium Chloride 111.3 H Carbon Dioxide BUN 22 H Creatinine Glucose 62 L POC Glucose 56 L Calcium Phosphorus Iron TIBC Lactate Dehydrogenase Total Creatine Kinase NT-Pro-B Natriuret Pep Total Protein Albumin Idwez-9-Fqdrvusuq Wtdly-6-Uomdbdnff Beta Globulins PEP Interpretation Cholesterol LDL Cholesterol Direct Vitamin B12 Urine WBC (Auto) Urine Creatinine Crossmatch 04/06/16 04/06/16 04/06/16 06:52 11:36 14:58 WBC RBC Hgb Hct MCV MCH MCHC RDW Plt Count Lymph % (Auto) Hart % (Auto) Lymph # Hart # Baso # Seg Neutrophils % Seg Neuts % (Manual) Lymphocytes % (Manual) Monocytes % (Manual) Seg Neutrophils # Seg Neutrophils # Man Lymphocytes # (Manual) Monocytes # (Manual) Basophils # (Manual) Percent Retic PT INR APTT Heparin Anti-Xa Level POC ABG pH POC ABG pCO2 POC ABG pO2 Sodium Potassium Chloride Carbon Dioxide BUN Creatinine Glucose POC Glucose 206 H 139 H 147 H Calcium Phosphorus Iron TIBC Lactate Dehydrogenase Total Creatine Kinase NT-Pro-B Natriuret Pep Total Protein Albumin Icobu-2-Uhigxzduu Ojoxs-1-Hwcjrdsck Beta Globulins PEP Interpretation Cholesterol LDL Cholesterol Direct Vitamin B12 Urine WBC (Auto) Urine Creatinine Crossmatch 04/06/16 04/06/16 04/06/16 16:03 21:18 23:53 WBC RBC Hgb Hct MCV MCH MCHC RDW Plt Count Lymph % (Auto) Hart % (Auto) Lymph # Hart # Baso # Seg Neutrophils % Seg Neuts % (Manual) Lymphocytes % (Manual) Monocytes % (Manual) Seg Neutrophils # Seg Neutrophils # Man Lymphocytes # (Manual) Monocytes # (Manual) Basophils # (Manual) Percent Retic PT INR APTT Heparin Anti-Xa Level POC ABG pH POC ABG pCO2 POC ABG pO2 Sodium Potassium Chloride Carbon Dioxide BUN Creatinine Glucose POC Glucose 154 H 293 H 301 H Calcium Phosphorus Iron TIBC Lactate Dehydrogenase Total Creatine Kinase NT-Pro-B Natriuret Pep Total Protein Albumin Eewer-9-Dzulfereo Mtqup-2-Zikjarqbz Beta Globulins PEP Interpretation Cholesterol LDL Cholesterol Direct Vitamin B12 Urine WBC (Auto) Urine Creatinine Crossmatch 04/07/16 04/07/16 04/07/16 02:30 05:11 05:11 WBC 12.5 H RBC Hgb 11.5 L Hct MCV 82 L MCH 26 L MCHC 31 L RDW Plt Count Lymph % (Auto) Hart % (Auto) Lymph # Hart # Baso # Seg Neutrophils % Seg Neuts % (Manual) Lymphocytes % (Manual) Monocytes % (Manual) Seg Neutrophils # Seg Neutrophils # Man Lymphocytes # (Manual) Monocytes # (Manual) Basophils # (Manual) Percent Retic PT INR APTT Heparin Anti-Xa Level 0.11 L POC ABG pH POC ABG pCO2 POC ABG pO2 Sodium 150 H Potassium Chloride 109.5 H Carbon Dioxide BUN 28 H Creatinine Glucose 264 H POC Glucose Calcium Phosphorus Iron TIBC Lactate Dehydrogenase Total Creatine Kinase NT-Pro-B Natriuret Pep Total Protein Albumin Yeuaw-4-Ggdvwsbog Sxumi-4-Eamlqcnxu Beta Globulins PEP Interpretation Cholesterol LDL Cholesterol Direct Vitamin B12 Urine WBC (Auto) Urine Creatinine Crossmatch 04/07/16 04/07/16 04/07/16 06:46 10:18 11:50 WBC RBC Hgb Hct MCV MCH MCHC RDW Plt Count Lymph % (Auto) Hart % (Auto) Lymph # Hart # Baso # Seg Neutrophils % Seg Neuts % (Manual) Lymphocytes % (Manual) Monocytes % (Manual) Seg Neutrophils # Seg Neutrophils # Man Lymphocytes # (Manual) Monocytes # (Manual) Basophils # (Manual) Percent Retic PT 15.1 H INR 1.20 H APTT Heparin Anti-Xa Level POC ABG pH POC ABG pCO2 POC ABG pO2 Sodium Potassium Chloride Carbon Dioxide BUN Creatinine Glucose POC Glucose 259 H 288 H Calcium Phosphorus Iron TIBC Lactate Dehydrogenase Total Creatine Kinase NT-Pro-B Natriuret Pep Total Protein Albumin Llgll-3-Oxrvjevft Oktzt-7-Rtwesdzun Beta Globulins PEP Interpretation Cholesterol LDL Cholesterol Direct Vitamin B12 Urine WBC (Auto) Urine Creatinine Crossmatch 04/07/16 04/08/16 04/08/16 17:58 01:25 06:49 WBC RBC Hgb Hct MCV MCH MCHC RDW Plt Count Lymph % (Auto) Hart % (Auto) Lymph # Hart # Baso # Seg Neutrophils % Seg Neuts % (Manual) Lymphocytes % (Manual) Monocytes % (Manual) Seg Neutrophils # Seg Neutrophils # Man Lymphocytes # (Manual) Monocytes # (Manual) Basophils # (Manual) Percent Retic PT INR APTT Heparin Anti-Xa Level POC ABG pH POC ABG pCO2 POC ABG pO2 Sodium 156 H Potassium Chloride 114.7 H Carbon Dioxide BUN 33 H Creatinine Glucose 169 H POC Glucose 330 H 146 H Calcium Phosphorus Iron TIBC Lactate Dehydrogenase Total Creatine Kinase NT-Pro-B Natriuret Pep Total Protein Albumin Bbpzb-3-Fochpkwpz Msfjo-2-Mlwnowcuf Beta Globulins PEP Interpretation Cholesterol LDL Cholesterol Direct Vitamin B12 Urine WBC (Auto) Urine Creatinine Crossmatch 04/08/16 04/08/16 04/08/16 07:34 10:28 10:28 WBC RBC Hgb Hct MCV MCH MCHC RDW Plt Count Lymph % (Auto) Hart % (Auto) Lymph # Hart # Baso # Seg Neutrophils % Seg Neuts % (Manual) Lymphocytes % (Manual) Monocytes % (Manual) Seg Neutrophils # Seg Neutrophils # Man Lymphocytes # (Manual) Monocytes # (Manual) Basophils # (Manual) Percent Retic PT 15.5 H INR 1.24 H APTT Heparin Anti-Xa Level 0.24 L POC ABG pH POC ABG pCO2 POC ABG pO2 Sodium Potassium Chloride Carbon Dioxide BUN Creatinine Glucose POC Glucose 232 H Calcium Phosphorus Iron TIBC Lactate Dehydrogenase Total Creatine Kinase NT-Pro-B Natriuret Pep Total Protein Albumin Ooejt-3-Fgedabhlc Jrzql-8-Vhamerrmz Beta Globulins PEP Interpretation Cholesterol LDL Cholesterol Direct Vitamin B12 Urine WBC (Auto) Urine Creatinine Crossmatch 04/08/16 04/08/16 04/09/16 11:36 15:38 00:01 WBC RBC Hgb Hct MCV MCH MCHC RDW Plt Count Lymph % (Auto) Hart % (Auto) Lymph # Hart # Baso # Seg Neutrophils % Seg Neuts % (Manual) Lymphocytes % (Manual) Monocytes % (Manual) Seg Neutrophils # Seg Neutrophils # Man Lymphocytes # (Manual) Monocytes # (Manual) Basophils # (Manual) Percent Retic PT INR APTT Heparin Anti-Xa Level POC ABG pH POC ABG pCO2 POC ABG pO2 Sodium Potassium Chloride Carbon Dioxide BUN Creatinine Glucose POC Glucose 193 H 163 H 180 H Calcium Phosphorus Iron TIBC Lactate Dehydrogenase Total Creatine Kinase NT-Pro-B Natriuret Pep Total Protein Albumin Kasch-0-Dwlwpuyup Emgqm-9-Ubveagzcz Beta Globulins PEP Interpretation Cholesterol LDL Cholesterol Direct Vitamin B12 Urine WBC (Auto) Urine Creatinine Crossmatch 04/09/16 04/09/16 04/09/16 06:17 06:42 06:42 WBC RBC Hgb Hct MCV MCH MCHC RDW Plt Count Lymph % (Auto) Hart % (Auto) Lymph # Hart # Baso # Seg Neutrophils % Seg Neuts % (Manual) Lymphocytes % (Manual) Monocytes % (Manual) Seg Neutrophils # Seg Neutrophils # Man Lymphocytes # (Manual) Monocytes # (Manual) Basophils # (Manual) Percent Retic PT 17.4 H INR 1.43 H APTT Heparin Anti-Xa Level POC ABG pH POC ABG pCO2 POC ABG pO2 Sodium 153 H Potassium Chloride 113.2 H Carbon Dioxide BUN 29 H Creatinine Glucose 301 H POC Glucose 249 H Calcium 8.3 L Phosphorus Iron TIBC Lactate Dehydrogenase Total Creatine Kinase NT-Pro-B Natriuret Pep Total Protein Albumin Fdicb-7-Mgwnkxflq Ubtrp-8-Icktjxpuj Beta Globulins PEP Interpretation Cholesterol LDL Cholesterol Direct Vitamin B12 Urine WBC (Auto) Urine Creatinine Crossmatch 04/09/16 04/09/16 04/09/16 07:37 11:26 15:45 WBC RBC Hgb Hct MCV MCH MCHC RDW Plt Count Lymph % (Auto) Hart % (Auto) Lymph # Hart # Baso # Seg Neutrophils % Seg Neuts % (Manual) Lymphocytes % (Manual) Monocytes % (Manual) Seg Neutrophils # Seg Neutrophils # Man Lymphocytes # (Manual) Monocytes # (Manual) Basophils # (Manual) Percent Retic PT INR APTT Heparin Anti-Xa Level POC ABG pH POC ABG pCO2 POC ABG pO2 Sodium Potassium Chloride Carbon Dioxide BUN Creatinine Glucose POC Glucose 283 H 306 H 354 H Calcium Phosphorus Iron TIBC Lactate Dehydrogenase Total Creatine Kinase NT-Pro-B Natriuret Pep Total Protein Albumin Kyxqk-5-Lbzoblyah Cpmbc-1-Fysvyeant Beta Globulins PEP Interpretation Cholesterol LDL Cholesterol Direct Vitamin B12 Urine WBC (Auto) Urine Creatinine Crossmatch 04/10/16 04/10/16 04/10/16 00:53 07:15 07:34 WBC RBC Hgb 11.3 L Hct MCV MCH MCHC RDW Plt Count Lymph % (Auto) Hart % (Auto) Lymph # Hart # Baso # Seg Neutrophils % Seg Neuts % (Manual) Lymphocytes % (Manual) Monocytes % (Manual) Seg Neutrophils # Seg Neutrophils # Man Lymphocytes # (Manual) Monocytes # (Manual) Basophils # (Manual) Percent Retic PT INR APTT Heparin Anti-Xa Level POC ABG pH POC ABG pCO2 POC ABG pO2 Sodium Potassium Chloride Carbon Dioxide BUN Creatinine Glucose POC Glucose 323 H 311 H Calcium Phosphorus Iron TIBC Lactate Dehydrogenase Total Creatine Kinase NT-Pro-B Natriuret Pep Total Protein Albumin Smtdo-1-Cwjeiepgu Tplod-5-Iywrxczgo Beta Globulins PEP Interpretation Cholesterol LDL Cholesterol Direct Vitamin B12 Urine WBC (Auto) Urine Creatinine Crossmatch 04/10/16 04/10/16 04/10/16 07:34 07:34 11:25 WBC RBC Hgb Hct MCV MCH MCHC RDW Plt Count Lymph % (Auto) Hart % (Auto) Lymph # Hart # Baso # Seg Neutrophils % Seg Neuts % (Manual) Lymphocytes % (Manual) Monocytes % (Manual) Seg Neutrophils # Seg Neutrophils # Man Lymphocytes # (Manual) Monocytes # (Manual) Basophils # (Manual) Percent Retic PT 17.3 H INR 1.42 H APTT Heparin Anti-Xa Level POC ABG pH POC ABG pCO2 POC ABG pO2 Sodium 158 H Potassium Chloride 118.6 H Carbon Dioxide BUN 30 H Creatinine Glucose 330 H POC Glucose 335 H Calcium 8.3 L Phosphorus Iron TIBC Lactate Dehydrogenase Total Creatine Kinase NT-Pro-B Natriuret Pep Total Protein Albumin Ikhag-2-Iwokvswde Buxkr-4-Omtlippyu Beta Globulins PEP Interpretation Cholesterol LDL Cholesterol Direct Vitamin B12 Urine WBC (Auto) Urine Creatinine Crossmatch 04/10/16 04/11/16 04/11/16 16:21 00:29 07:47 WBC RBC Hgb Hct MCV MCH MCHC RDW Plt Count Lymph % (Auto) Hart % (Auto) Lymph # Hart # Baso # Seg Neutrophils % Seg Neuts % (Manual) Lymphocytes % (Manual) Monocytes % (Manual) Seg Neutrophils # Seg Neutrophils # Man Lymphocytes # (Manual) Monocytes # (Manual) Basophils # (Manual) Percent Retic PT 18.4 H INR 1.53 H APTT Heparin Anti-Xa Level POC ABG pH POC ABG pCO2 POC ABG pO2 Sodium Potassium Chloride Carbon Dioxide BUN Creatinine Glucose POC Glucose 230 H 162 H Calcium Phosphorus Iron TIBC Lactate Dehydrogenase Total Creatine Kinase NT-Pro-B Natriuret Pep Total Protein Albumin Bgbli-6-Huimqrsfk Vdihf-9-Ivjgichkf Beta Globulins PEP Interpretation Cholesterol LDL Cholesterol Direct Vitamin B12 Urine WBC (Auto) Urine Creatinine Crossmatch 04/11/16 04/11/16 04/12/16 07:47 11:22 04:54 WBC RBC Hgb 11.0 L Hct 35.0 L MCV MCH MCHC RDW Plt Count Lymph % (Auto) Hart % (Auto) Lymph # Hart # Baso # Seg Neutrophils % Seg Neuts % (Manual) Lymphocytes % (Manual) Monocytes % (Manual) Seg Neutrophils # Seg Neutrophils # Man Lymphocytes # (Manual) Monocytes # (Manual) Basophils # (Manual) Percent Retic PT INR APTT Heparin Anti-Xa Level POC ABG pH POC ABG pCO2 POC ABG pO2 Sodium 155 H Potassium Chloride 114.5 H Carbon Dioxide BUN 23 H Creatinine Glucose 157 H POC Glucose 229 H Calcium Phosphorus Iron TIBC Lactate Dehydrogenase Total Creatine Kinase NT-Pro-B Natriuret Pep Total Protein Albumin Svzzd-8-Rfeyxyisy Enrxv-3-Frltlzdzc Beta Globulins PEP Interpretation Cholesterol LDL Cholesterol Direct Vitamin B12 Urine WBC (Auto) Urine Creatinine Crossmatch 04/12/16 04/12/16 04/12/16 04:54 04:54 05:57 WBC RBC Hgb Hct MCV MCH MCHC RDW Plt Count Lymph % (Auto) Hart % (Auto) Lymph # Hart # Baso # Seg Neutrophils % Seg Neuts % (Manual) Lymphocytes % (Manual) Monocytes % (Manual) Seg Neutrophils # Seg Neutrophils # Man Lymphocytes # (Manual) Monocytes # (Manual) Basophils # (Manual) Percent Retic PT 22.5 H INR 1.98 H APTT Heparin Anti-Xa Level 0.19 L POC ABG pH POC ABG pCO2 POC ABG pO2 Sodium 156 H Potassium Chloride 115.4 H Carbon Dioxide BUN 23 H Creatinine Glucose 143 H POC Glucose 194 H Calcium Phosphorus Iron TIBC Lactate Dehydrogenase Total Creatine Kinase NT-Pro-B Natriuret Pep Total Protein Albumin Cbtpo-0-Bjokwtxqm Zctfx-2-Qkyavylql Beta Globulins PEP Interpretation Cholesterol LDL Cholesterol Direct Vitamin B12 Urine WBC (Auto) Urine Creatinine Crossmatch 04/12/16 04/12/16 04/12/16 12:34 19:01 23:30 WBC RBC Hgb Hct MCV MCH MCHC RDW Plt Count Lymph % (Auto) Hart % (Auto) Lymph # Hart # Baso # Seg Neutrophils % Seg Neuts % (Manual) Lymphocytes % (Manual) Monocytes % (Manual) Seg Neutrophils # Seg Neutrophils # Man Lymphocytes # (Manual) Monocytes # (Manual) Basophils # (Manual) Percent Retic PT INR APTT Heparin Anti-Xa Level POC ABG pH POC ABG pCO2 POC ABG pO2 Sodium Potassium Chloride Carbon Dioxide BUN Creatinine Glucose POC Glucose 291 H 235 H 154 H Calcium Phosphorus Iron TIBC Lactate Dehydrogenase Total Creatine Kinase NT-Pro-B Natriuret Pep Total Protein Albumin Vfopg-8-Cfadlvudh Eofag-1-Mdgmsmtan Beta Globulins PEP Interpretation Cholesterol LDL Cholesterol Direct Vitamin B12 Urine WBC (Auto) Urine Creatinine Crossmatch 04/13/16 04/13/16 04/13/16 05:16 05:16 05:28 WBC RBC Hgb Hct MCV MCH MCHC RDW Plt Count Lymph % (Auto) Hart % (Auto) Lymph # Hart # Baso # Seg Neutrophils % Seg Neuts % (Manual) Lymphocytes % (Manual) Monocytes % (Manual) Seg Neutrophils # Seg Neutrophils # Man Lymphocytes # (Manual) Monocytes # (Manual) Basophils # (Manual) Percent Retic PT 27.0 H INR 2.49 H APTT Heparin Anti-Xa Level 0.20 L POC ABG pH POC ABG pCO2 POC ABG pO2 Sodium 150 H Potassium Chloride 110.5 H Carbon Dioxide BUN 21 H Creatinine Glucose 159 H POC Glucose 177 H Calcium Phosphorus Iron TIBC Lactate Dehydrogenase Total Creatine Kinase NT-Pro-B Natriuret Pep Total Protein Albumin Hudxc-3-Vgttznpxb Dtixc-2-Xifezggef Beta Globulins PEP Interpretation Cholesterol LDL Cholesterol Direct Vitamin B12 Urine WBC (Auto) Urine Creatinine Crossmatch 04/13/16 04/13/16 04/14/16 11:30 17:54 00:44 WBC RBC Hgb Hct MCV MCH MCHC RDW Plt Count Lymph % (Auto) Hart % (Auto) Lymph # Hart # Baso # Seg Neutrophils % Seg Neuts % (Manual) Lymphocytes % (Manual) Monocytes % (Manual) Seg Neutrophils # Seg Neutrophils # Man Lymphocytes # (Manual) Monocytes # (Manual) Basophils # (Manual) Percent Retic PT INR APTT Heparin Anti-Xa Level POC ABG pH POC ABG pCO2 POC ABG pO2 Sodium Potassium Chloride Carbon Dioxide BUN Creatinine Glucose POC Glucose 181 H 251 H 237 H Calcium Phosphorus Iron TIBC Lactate Dehydrogenase Total Creatine Kinase NT-Pro-B Natriuret Pep Total Protein Albumin Pktsh-0-Jaxcywmbp Lqkhr-5-Ksfdmgloo Beta Globulins PEP Interpretation Cholesterol LDL Cholesterol Direct Vitamin B12 Urine WBC (Auto) Urine Creatinine Crossmatch 04/14/16 04/14/16 04/14/16 05:00 05:42 05:42 WBC RBC Hgb Hct MCV MCH MCHC RDW Plt Count Lymph % (Auto) Hart % (Auto) Lymph # Hart # Baso # Seg Neutrophils % Seg Neuts % (Manual) Lymphocytes % (Manual) Monocytes % (Manual) Seg Neutrophils # Seg Neutrophils # Man Lymphocytes # (Manual) Monocytes # (Manual) Basophils # (Manual) Percent Retic PT 30.3 H INR 2.88 H APTT Heparin Anti-Xa Level 0.27 L POC ABG pH POC ABG pCO2 POC ABG pO2 Sodium Potassium 3.5 L Chloride Carbon Dioxide BUN Creatinine Glucose 160 H POC Glucose Calcium 8.2 L Phosphorus Iron TIBC Lactate Dehydrogenase Total Creatine Kinase NT-Pro-B Natriuret Pep Total Protein Albumin Axjjk-6-Gyjzevphw Zxmhw-1-Hdnjplkom Beta Globulins PEP Interpretation Cholesterol LDL Cholesterol Direct Vitamin B12 Urine WBC (Auto) Urine Creatinine Crossmatch 04/14/16 04/14/16 04/14/16 06:02 06:16 09:18 WBC 12.3 H RBC Hgb 11.4 L Hct MCV 82 L MCH 26 L MCHC RDW Plt Count Lymph % (Auto) Hart % (Auto) Lymph # Hart # Baso # Seg Neutrophils % Seg Neuts % (Manual) Lymphocytes % (Manual) Monocytes % (Manual) Seg Neutrophils # Seg Neutrophils # Man Lymphocytes # (Manual) Monocytes # (Manual) Basophils # (Manual) Percent Retic PT INR APTT Heparin Anti-Xa Level POC ABG pH POC ABG pCO2 POC ABG pO2 Sodium Potassium Chloride Carbon Dioxide BUN Creatinine Glucose POC Glucose 156 H 164 H Calcium Phosphorus Iron TIBC Lactate Dehydrogenase Total Creatine Kinase NT-Pro-B Natriuret Pep Total Protein Albumin Xpspu-4-Dftzivimp Dhdeg-6-Kgdzxdvxs Beta Globulins PEP Interpretation Cholesterol LDL Cholesterol Direct Vitamin B12 Urine WBC (Auto) Urine Creatinine Crossmatch 04/14/16 04/15/16 04/15/16 13:58 01:07 06:04 WBC RBC Hgb Hct MCV MCH MCHC RDW Plt Count Lymph % (Auto) Hart % (Auto) Lymph # Hart # Baso # Seg Neutrophils % Seg Neuts % (Manual) Lymphocytes % (Manual) Monocytes % (Manual) Seg Neutrophils # Seg Neutrophils # Man Lymphocytes # (Manual) Monocytes # (Manual) Basophils # (Manual) Percent Retic PT 24.9 H INR 2.25 H APTT Heparin Anti-Xa Level POC ABG pH POC ABG pCO2 POC ABG pO2 Sodium Potassium Chloride Carbon Dioxide BUN Creatinine Glucose POC Glucose 109 H 154 H Calcium Phosphorus Iron TIBC Lactate Dehydrogenase Total Creatine Kinase NT-Pro-B Natriuret Pep Total Protein Albumin Emrjh-4-Ukwfptnmw Tuowv-6-Lwiqpjbfe Beta Globulins PEP Interpretation Cholesterol LDL Cholesterol Direct Vitamin B12 Urine WBC (Auto) Urine Creatinine Crossmatch 04/15/16 04/15/16 04/16/16 06:08 12:41 00:38 WBC RBC Hgb Hct MCV MCH MCHC RDW Plt Count Lymph % (Auto) Hart % (Auto) Lymph # Hart # Baso # Seg Neutrophils % Seg Neuts % (Manual) Lymphocytes % (Manual) Monocytes % (Manual) Seg Neutrophils # Seg Neutrophils # Man Lymphocytes # (Manual) Monocytes # (Manual) Basophils # (Manual) Percent Retic PT INR APTT Heparin Anti-Xa Level POC ABG pH POC ABG pCO2 POC ABG pO2 Sodium Potassium Chloride Carbon Dioxide BUN Creatinine Glucose POC Glucose 165 H 223 H 216 H Calcium Phosphorus Iron TIBC Lactate Dehydrogenase Total Creatine Kinase NT-Pro-B Natriuret Pep Total Protein Albumin Cwkkp-5-Ocvirudvy Tohyt-2-Iuosssmjt Beta Globulins PEP Interpretation Cholesterol LDL Cholesterol Direct Vitamin B12 Urine WBC (Auto) Urine Creatinine Crossmatch 04/16/16 04/16/16 04/16/16 05:45 07:09 14:00 WBC RBC Hgb Hct MCV MCH MCHC RDW Plt Count Lymph % (Auto) Hart % (Auto) Lymph # Hart # Baso # Seg Neutrophils % Seg Neuts % (Manual) Lymphocytes % (Manual) Monocytes % (Manual) Seg Neutrophils # Seg Neutrophils # Man Lymphocytes # (Manual) Monocytes # (Manual) Basophils # (Manual) Percent Retic PT 19.4 H INR 1.64 H APTT Heparin Anti-Xa Level 0.10 L POC ABG pH POC ABG pCO2 POC ABG pO2 Sodium Potassium Chloride Carbon Dioxide BUN Creatinine Glucose POC Glucose 207 H 69 L Calcium Phosphorus Iron TIBC Lactate Dehydrogenase Total Creatine Kinase NT-Pro-B Natriuret Pep Total Protein Albumin Hscdz-4-Wyexlpbuy Hnrwa-1-Ncsllnvgs Beta Globulins PEP Interpretation Cholesterol LDL Cholesterol Direct Vitamin B12 Urine WBC (Auto) Urine Creatinine Crossmatch 04/16/16 04/16/16 04/16/16 17:40 17:52 19:38 WBC RBC Hgb Hct MCV MCH MCHC RDW Plt Count Lymph % (Auto) Hart % (Auto) Lymph # Hart # Baso # Seg Neutrophils % Seg Neuts % (Manual) Lymphocytes % (Manual) Monocytes % (Manual) Seg Neutrophils # Seg Neutrophils # Man Lymphocytes # (Manual) Monocytes # (Manual) Basophils # (Manual) Percent Retic PT INR APTT Heparin Anti-Xa Level 0.26 L POC ABG pH 7.543 H 7.488 H POC ABG pCO2 26.3 L 30.3 L POC ABG pO2 55 L 203 H Sodium Potassium Chloride Carbon Dioxide BUN Creatinine Glucose POC Glucose Calcium Phosphorus Iron TIBC Lactate Dehydrogenase Total Creatine Kinase NT-Pro-B Natriuret Pep Total Protein Albumin Mkpqt-8-Tdgkvczoh Ibbem-8-Znqcrfmzg Beta Globulins PEP Interpretation Cholesterol LDL Cholesterol Direct Vitamin B12 Urine WBC (Auto) Urine Creatinine Crossmatch 04/17/16 04/17/16 04/17/16 00:04 05:10 05:36 WBC RBC Hgb Hct MCV MCH MCHC RDW Plt Count Lymph % (Auto) Hart % (Auto) Lymph # Hart # Baso # Seg Neutrophils % Seg Neuts % (Manual) Lymphocytes % (Manual) Monocytes % (Manual) Seg Neutrophils # Seg Neutrophils # Man Lymphocytes # (Manual) Monocytes # (Manual) Basophils # (Manual) Percent Retic PT INR APTT Heparin Anti-Xa Level POC ABG pH POC ABG pCO2 32.7 L POC ABG pO2 68 L Sodium Potassium Chloride Carbon Dioxide BUN Creatinine Glucose POC Glucose 113 H 161 H Calcium Phosphorus Iron TIBC Lactate Dehydrogenase Total Creatine Kinase NT-Pro-B Natriuret Pep Total Protein Albumin Sjkqw-4-Vifztegfr Jgmfa-5-Sqsocsgke Beta Globulins PEP Interpretation Cholesterol LDL Cholesterol Direct Vitamin B12 Urine WBC (Auto) Urine Creatinine Crossmatch 04/17/16 04/17/16 04/17/16 05:41 08:37 11:46 WBC RBC Hgb Hct MCV MCH MCHC RDW Plt Count Lymph % (Auto) Hart % (Auto) Lymph # Hart # Baso # Seg Neutrophils % Seg Neuts % (Manual) Lymphocytes % (Manual) Monocytes % (Manual) Seg Neutrophils # Seg Neutrophils # Man Lymphocytes # (Manual) Monocytes # (Manual) Basophils # (Manual) Percent Retic PT 17.4 H INR 1.43 H APTT Heparin Anti-Xa Level POC ABG pH POC ABG pCO2 POC ABG pO2 Sodium Potassium Chloride Carbon Dioxide BUN Creatinine Glucose POC Glucose 154 H 138 H Calcium Phosphorus Iron TIBC Lactate Dehydrogenase Total Creatine Kinase NT-Pro-B Natriuret Pep Total Protein Albumin Ntkdw-4-Vlttrpiqh Zyyra-5-Paskgiztk Beta Globulins PEP Interpretation Cholesterol LDL Cholesterol Direct Vitamin B12 Urine WBC (Auto) Urine Creatinine Crossmatch 04/17/16 04/17/16 04/17/16 12:17 12:17 21:20 WBC 16.5 H RBC 3.31 L Hgb 8.8 L Hct 26.9 L MCV 81 L MCH 27 L MCHC RDW 15.5 H Plt Count Lymph % (Auto) Hart % (Auto) Lymph # Hart # Baso # Seg Neutrophils % Seg Neuts % (Manual) Lymphocytes % (Manual) 3.0 L Monocytes % (Manual) Seg Neutrophils # Seg Neutrophils # Man 10.1 H Lymphocytes # (Manual) 0.5 L Monocytes # (Manual) Basophils # (Manual) Percent Retic PT INR APTT Heparin Anti-Xa Level 0.14 L POC ABG pH POC ABG pCO2 POC ABG pO2 Sodium Potassium Chloride Carbon Dioxide 21 L BUN 38 H Creatinine 1.8 H D Glucose 131 H POC Glucose Calcium 7.6 L Phosphorus Iron TIBC Lactate Dehydrogenase Total Creatine Kinase NT-Pro-B Natriuret Pep Total Protein Albumin Joeav-9-Khhiimfvd Aaxlr-8-Bfwovbemm Beta Globulins PEP Interpretation Cholesterol LDL Cholesterol Direct Vitamin B12 Urine WBC (Auto) Urine Creatinine Crossmatch 04/17/16 04/17/16 04/18/16 23:38 23:41 00:21 WBC RBC Hgb Hct MCV MCH MCHC RDW Plt Count Lymph % (Auto) Hart % (Auto) Lymph # Hart # Baso # Seg Neutrophils % Seg Neuts % (Manual) Lymphocytes % (Manual) Monocytes % (Manual) Seg Neutrophils # Seg Neutrophils # Man Lymphocytes # (Manual) Monocytes # (Manual) Basophils # (Manual) Percent Retic PT INR APTT Heparin Anti-Xa Level POC ABG pH POC ABG pCO2 POC ABG pO2 Sodium Potassium Chloride Carbon Dioxide BUN Creatinine Glucose POC Glucose < 40 L < 40 L 223 H Calcium Phosphorus Iron TIBC Lactate Dehydrogenase Total Creatine Kinase NT-Pro-B Natriuret Pep Total Protein Albumin Qbncc-2-Bgoqpjkrv Ulyqa-0-Arrqdsbxd Beta Globulins PEP Interpretation Cholesterol LDL Cholesterol Direct Vitamin B12 Urine WBC (Auto) Urine Creatinine Crossmatch 04/18/16 04/18/16 04/18/16 05:01 05:20 05:20 WBC 17.6 H RBC 3.44 L Hgb 9.1 L Hct 27.8 L MCV 81 L MCH 26 L MCHC RDW 15.5 H Plt Count Lymph % (Auto) 2.7 L Hart % (Auto) 8.3 H Lymph # 0.5 L Hart # 1.5 H Baso # Seg Neutrophils % 88.4 H Seg Neuts % (Manual) Lymphocytes % (Manual) Monocytes % (Manual) Seg Neutrophils # 15.6 H Seg Neutrophils # Man Lymphocytes # (Manual) Monocytes # (Manual) Basophils # (Manual) Percent Retic PT 17.4 H INR 1.43 H APTT Heparin Anti-Xa Level POC ABG pH 7.528 H POC ABG pCO2 27.9 L POC ABG pO2 Sodium Potassium Chloride Carbon Dioxide BUN Creatinine Glucose POC Glucose Calcium Phosphorus Iron TIBC Lactate Dehydrogenase Total Creatine Kinase NT-Pro-B Natriuret Pep Total Protein Albumin Ujpul-4-Qscdyihyc Jgrxy-5-Cqlsewvet Beta Globulins PEP Interpretation Cholesterol LDL Cholesterol Direct Vitamin B12 Urine WBC (Auto) Urine Creatinine Crossmatch 04/18/16 04/18/16 04/18/16 05:20 05:31 06:50 WBC RBC Hgb Hct MCV MCH MCHC RDW Plt Count Lymph % (Auto) Hart % (Auto) Lymph # Hart # Baso # Seg Neutrophils % Seg Neuts % (Manual) Lymphocytes % (Manual) Monocytes % (Manual) Seg Neutrophils # Seg Neutrophils # Man Lymphocytes # (Manual) Monocytes # (Manual) Basophils # (Manual) Percent Retic PT INR APTT Heparin Anti-Xa Level POC ABG pH POC ABG pCO2 POC ABG pO2 Sodium Potassium 3.4 L Chloride Carbon Dioxide 21 L BUN 22 H Creatinine Glucose POC Glucose 61 L 124 H Calcium 8.0 L Phosphorus Iron TIBC Lactate Dehydrogenase Total Creatine Kinase NT-Pro-B Natriuret Pep Total Protein Albumin Cgcyc-7-Gkvoheaby Pydcf-3-Gqoruudkr Beta Globulins PEP Interpretation Cholesterol LDL Cholesterol Direct Vitamin B12 Urine WBC (Auto) Urine Creatinine Crossmatch 04/18/16 04/18/16 04/19/16 17:42 22:40 00:31 WBC RBC Hgb Hct MCV MCH MCHC RDW Plt Count Lymph % (Auto) Hart % (Auto) Lymph # Hart # Baso # Seg Neutrophils % Seg Neuts % (Manual) Lymphocytes % (Manual) Monocytes % (Manual) Seg Neutrophils # Seg Neutrophils # Man Lymphocytes # (Manual) Monocytes # (Manual) Basophils # (Manual) Percent Retic PT INR APTT Heparin Anti-Xa Level < 0.10 L POC ABG pH POC ABG pCO2 POC ABG pO2 Sodium Potassium Chloride Carbon Dioxide BUN Creatinine Glucose POC Glucose 159 H 134 H Calcium Phosphorus Iron TIBC Lactate Dehydrogenase Total Creatine Kinase NT-Pro-B Natriuret Pep Total Protein Albumin Lenvb-6-Cpxduxvvv Qhzkd-3-Qrqpowlxh Beta Globulins PEP Interpretation Cholesterol LDL Cholesterol Direct Vitamin B12 Urine WBC (Auto) Urine Creatinine Crossmatch 04/19/16 04/19/16 04/19/16 04:18 04:18 04:25 WBC 19.0 H RBC 3.58 L Hgb 9.3 L Hct 28.8 L MCV 80 L MCH 26 L MCHC RDW 15.5 H Plt Count Lymph % (Auto) 2.8 L Hart % (Auto) 7.4 H Lymph # 0.5 L Hart # 1.4 H Baso # Seg Neutrophils % 89.4 H Seg Neuts % (Manual) Lymphocytes % (Manual) Monocytes % (Manual) Seg Neutrophils # 17.0 H Seg Neutrophils # Man Lymphocytes # (Manual) Monocytes # (Manual) Basophils # (Manual) Percent Retic PT INR APTT Heparin Anti-Xa Level POC ABG pH 7.527 H POC ABG pCO2 27.1 L POC ABG pO2 Sodium Potassium Chloride Carbon Dioxide BUN 22 H Creatinine Glucose 215 H POC Glucose Calcium 8.0 L Phosphorus Iron TIBC Lactate Dehydrogenase Total Creatine Kinase NT-Pro-B Natriuret Pep Total Protein Albumin Sceol-0-Sjbezbohm Hkami-9-Uzaspdhfp Beta Globulins PEP Interpretation Cholesterol LDL Cholesterol Direct Vitamin B12 Urine WBC (Auto) Urine Creatinine Crossmatch 04/19/16 04/19/16 04/19/16 05:45 08:10 14:08 WBC RBC Hgb Hct MCV MCH MCHC RDW Plt Count Lymph % (Auto) Hart % (Auto) Lymph # Hart # Baso # Seg Neutrophils % Seg Neuts % (Manual) Lymphocytes % (Manual) Monocytes % (Manual) Seg Neutrophils # Seg Neutrophils # Man Lymphocytes # (Manual) Monocytes # (Manual) Basophils # (Manual) Percent Retic PT 22.1 H INR 1.93 H APTT Heparin Anti-Xa Level 0.17 L POC ABG pH POC ABG pCO2 POC ABG pO2 Sodium Potassium Chloride Carbon Dioxide BUN Creatinine Glucose POC Glucose 196 H 318 H Calcium Phosphorus Iron TIBC Lactate Dehydrogenase Total Creatine Kinase NT-Pro-B Natriuret Pep Total Protein Albumin Lrqog-3-Szttwdfwg Uedyp-0-Ceobmppxd Beta Globulins PEP Interpretation Cholesterol LDL Cholesterol Direct Vitamin B12 Urine WBC (Auto) Urine Creatinine Crossmatch 04/19/16 04/20/1616 17:27 03:55 03:55 WBC 18.5 H RBC 3.19 L Hgb 8.4 L Hct 25.7 L MCV 80 L MCH 26 L MCHC RDW 15.9 H Plt Count Lymph % (Auto) 4.3 L Hart % (Auto) 10.1 H Lymph # 0.8 L Hart # 1.9 H Baso # Seg Neutrophils % 85.2 H Seg Neuts % (Manual) Lymphocytes % (Manual) Monocytes % (Manual) Seg Neutrophils # 15.8 H Seg Neutrophils # Man Lymphocytes # (Manual) Monocytes # (Manual) Basophils # (Manual) Percent Retic PT 22.0 H INR 1.92 H APTT Heparin Anti-Xa Level 0.14 L POC ABG pH POC ABG pCO2 POC ABG pO2 Sodium Potassium Chloride Carbon Dioxide BUN Creatinine Glucose POC Glucose 230 H Calcium Phosphorus Iron TIBC Lactate Dehydrogenase Total Creatine Kinase NT-Pro-B Natriuret Pep Total Protein Albumin Hfspa-7-Cdtugkarn Unmxq-1-Lcpykcskq Beta Globulins PEP Interpretation Cholesterol LDL Cholesterol Direct Vitamin B12 Urine WBC (Auto) Urine Creatinine Crossmatch 04/20/16 04/20/16 04/20/16 03:55 04:16 05:52 WBC RBC Hgb Hct MCV MCH MCHC RDW Plt Count Lymph % (Auto) Hart % (Auto) Lymph # Hart # Baso # Seg Neutrophils % Seg Neuts % (Manual) Lymphocytes % (Manual) Monocytes % (Manual) Seg Neutrophils # Seg Neutrophils # Man Lymphocytes # (Manual) Monocytes # (Manual) Basophils # (Manual) Percent Retic PT INR APTT Heparin Anti-Xa Level POC ABG pH 7.474 H POC ABG pCO2 26.5 L POC ABG pO2 Sodium Potassium Chloride Carbon Dioxide 18 L BUN 38 H Creatinine 2.7 H D Glucose 159 H POC Glucose 214 H Calcium 8.0 L Phosphorus Iron TIBC Lactate Dehydrogenase Total Creatine Kinase NT-Pro-B Natriuret Pep Total Protein Albumin Iovzj-8-Ptmbcovza Okmpj-9-Kqxyqvbwe Beta Globulins PEP Interpretation Cholesterol LDL Cholesterol Direct Vitamin B12 Urine WBC (Auto) Urine Creatinine Crossmatch 04/20/16 04/20/16 04/20/16 10:32 11:27 11:50 WBC RBC Hgb Hct MCV MCH MCHC RDW Plt Count Lymph % (Auto) Hart % (Auto) Lymph # Hart # Baso # Seg Neutrophils % Seg Neuts % (Manual) Lymphocytes % (Manual) Monocytes % (Manual) Seg Neutrophils # Seg Neutrophils # Man Lymphocytes # (Manual) Monocytes # (Manual) Basophils # (Manual) Percent Retic PT INR APTT Heparin Anti-Xa Level POC ABG pH POC ABG pCO2 POC ABG pO2 Sodium Potassium Chloride Carbon Dioxide 20 L BUN 45 H Creatinine 3.0 H Glucose 215 H POC Glucose 248 H Calcium 8.0 L Phosphorus Iron TIBC Lactate Dehydrogenase Total Creatine Kinase NT-Pro-B Natriuret Pep Total Protein Albumin Jvphk-8-Ogyqlphfu Ypbon-1-Dhkpavpbg Beta Globulins PEP Interpretation Cholesterol LDL Cholesterol Direct Vitamin B12 Urine WBC (Auto) Urine Creatinine 85.5 H Crossmatch 04/20/16 04/21/16 04/21/16 16:59 00:13 04:29 WBC RBC Hgb Hct MCV MCH MCHC RDW Plt Count Lymph % (Auto) Hart % (Auto) Lymph # Hart # Baso # Seg Neutrophils % Seg Neuts % (Manual) Lymphocytes % (Manual) Monocytes % (Manual) Seg Neutrophils # Seg Neutrophils # Man Lymphocytes # (Manual) Monocytes # (Manual) Basophils # (Manual) Percent Retic PT 18.1 H INR 1.50 H APTT Heparin Anti-Xa Level 0.10 L POC ABG pH POC ABG pCO2 POC ABG pO2 Sodium Potassium Chloride Carbon Dioxide BUN Creatinine Glucose POC Glucose 312 H 287 H Calcium Phosphorus Iron TIBC Lactate Dehydrogenase Total Creatine Kinase NT-Pro-B Natriuret Pep Total Protein Albumin Zmdnp-2-Glbqcjtlo Herjl-5-Bgjyfpcoa Beta Globulins PEP Interpretation Cholesterol LDL Cholesterol Direct Vitamin B12 Urine WBC (Auto) Urine Creatinine Crossmatch 04/21/16 04/21/16 04/21/16 04:29 04:29 04:55 WBC 15.4 H RBC 3.24 L Hgb 8.4 L Hct 25.6 L MCV 79 L MCH 26 L MCHC RDW 16.1 H Plt Count Lymph % (Auto) 6.8 L Hart % (Auto) 12.9 H Lymph # 1.0 L Hart # 2.0 H Baso # Seg Neutrophils % 79.8 H Seg Neuts % (Manual) Lymphocytes % (Manual) Monocytes % (Manual) Seg Neutrophils # 12.3 H Seg Neutrophils # Man Lymphocytes # (Manual) Monocytes # (Manual) Basophils # (Manual) Percent Retic PT INR APTT Heparin Anti-Xa Level POC ABG pH 7.512 H POC ABG pCO2 25.4 L POC ABG pO2 Sodium 135 L Potassium Chloride Carbon Dioxide 18 L BUN 57 H Creatinine 3.9 H Glucose 202 H POC Glucose Calcium 8.0 L Phosphorus Iron TIBC Lactate Dehydrogenase Total Creatine Kinase NT-Pro-B Natriuret Pep Total Protein Albumin Wlxdh-1-Dllejktpb Rfdwk-2-Gyunmnlse Beta Globulins PEP Interpretation Cholesterol LDL Cholesterol Direct Vitamin B12 Urine WBC (Auto) Urine Creatinine Crossmatch 04/21/16 04/21/16 04/21/16 05:20 12:08 12:16 WBC RBC Hgb Hct MCV MCH MCHC RDW Plt Count Lymph % (Auto) Hart % (Auto) Lymph # Hart # Baso # Seg Neutrophils % Seg Neuts % (Manual) Lymphocytes % (Manual) Monocytes % (Manual) Seg Neutrophils # Seg Neutrophils # Man Lymphocytes # (Manual) Monocytes # (Manual) Basophils # (Manual) Percent Retic PT INR APTT Heparin Anti-Xa Level 0.16 L POC ABG pH POC ABG pCO2 POC ABG pO2 Sodium Potassium Chloride Carbon Dioxide BUN Creatinine Glucose POC Glucose 203 H 221 H Calcium Phosphorus Iron TIBC Lactate Dehydrogenase Total Creatine Kinase NT-Pro-B Natriuret Pep Total Protein Albumin Sxprd-7-Ipjpewifh Iixcb-6-Pxgguoqno Beta Globulins PEP Interpretation Cholesterol LDL Cholesterol Direct Vitamin B12 Urine WBC (Auto) Urine Creatinine Crossmatch 04/21/16 04/22/16 04/22/16 17:22 05:01 05:20 WBC RBC Hgb Hct MCV MCH MCHC RDW Plt Count Lymph % (Auto) Hart % (Auto) Lymph # Hart # Baso # Seg Neutrophils % Seg Neuts % (Manual) Lymphocytes % (Manual) Monocytes % (Manual) Seg Neutrophils # Seg Neutrophils # Man Lymphocytes # (Manual) Monocytes # (Manual) Basophils # (Manual) Percent Retic PT 17.5 H INR 1.44 H APTT Heparin Anti-Xa Level POC ABG pH 7.460 H POC ABG pCO2 27.9 L POC ABG pO2 Sodium Potassium Chloride Carbon Dioxide BUN Creatinine Glucose POC Glucose 189 H Calcium Phosphorus Iron TIBC Lactate Dehydrogenase Total Creatine Kinase NT-Pro-B Natriuret Pep Total Protein Albumin Gtyib-8-Fxcmzipji Lymus-5-Kslkarhpb Beta Globulins PEP Interpretation Cholesterol LDL Cholesterol Direct Vitamin B12 Urine WBC (Auto) Urine Creatinine Crossmatch 04/22/16 04/22/16 04/22/16 05:43 06:40 08:08 WBC RBC Hgb Hct MCV MCH MCHC RDW Plt Count Lymph % (Auto) Hart % (Auto) Lymph # Hart # Baso # Seg Neutrophils % Seg Neuts % (Manual) Lymphocytes % (Manual) Monocytes % (Manual) Seg Neutrophils # Seg Neutrophils # Man Lymphocytes # (Manual) Monocytes # (Manual) Basophils # (Manual) Percent Retic PT INR APTT Heparin Anti-Xa Level POC ABG pH POC ABG pCO2 POC ABG pO2 Sodium Potassium Chloride Carbon Dioxide BUN Creatinine Glucose POC Glucose 56 L 136 H 134 H Calcium Phosphorus Iron TIBC Lactate Dehydrogenase Total Creatine Kinase NT-Pro-B Natriuret Pep Total Protein Albumin Enpcu-2-Cwntpetgq Wpfet-3-Jytfgvbyl Beta Globulins PEP Interpretation Cholesterol LDL Cholesterol Direct Vitamin B12 Urine WBC (Auto) Urine Creatinine Crossmatch 04/22/16 04/22/16 04/22/16 11:18 12:10 18:17 WBC RBC Hgb Hct MCV MCH MCHC RDW Plt Count Lymph % (Auto) Hart % (Auto) Lymph # Hart # Baso # Seg Neutrophils % Seg Neuts % (Manual) Lymphocytes % (Manual) Monocytes % (Manual) Seg Neutrophils # Seg Neutrophils # Man Lymphocytes # (Manual) Monocytes # (Manual) Basophils # (Manual) Percent Retic PT INR APTT Heparin Anti-Xa Level 0.12 L POC ABG pH POC ABG pCO2 POC ABG pO2 Sodium Potassium Chloride Carbon Dioxide BUN Creatinine Glucose POC Glucose 142 H 227 H Calcium Phosphorus Iron TIBC Lactate Dehydrogenase Total Creatine Kinase NT-Pro-B Natriuret Pep Total Protein Albumin Viaxf-8-Efjuyoqlt Inntp-6-Qaxpoxuva Beta Globulins PEP Interpretation Cholesterol LDL Cholesterol Direct Vitamin B12 Urine WBC (Auto) Urine Creatinine Crossmatch 04/22/16 04/22/16 04/23/16 22:28 23:47 04:49 WBC RBC Hgb Hct MCV MCH MCHC RDW Plt Count Lymph % (Auto) Hart % (Auto) Lymph # Hart # Baso # Seg Neutrophils % Seg Neuts % (Manual) Lymphocytes % (Manual) Monocytes % (Manual) Seg Neutrophils # Seg Neutrophils # Man Lymphocytes # (Manual) Monocytes # (Manual) Basophils # (Manual) Percent Retic PT INR APTT Heparin Anti-Xa Level 0.16 L POC ABG pH POC ABG pCO2 32.6 L POC ABG pO2 122 H Sodium Potassium Chloride Carbon Dioxide BUN Creatinine Glucose POC Glucose 266 H Calcium Phosphorus Iron TIBC Lactate Dehydrogenase Total Creatine Kinase NT-Pro-B Natriuret Pep Total Protein Albumin [place]-6-Kiivkewtc Cmsqt-0-Xbogxehar Beta Globulins PEP Interpretation Cholesterol LDL Cholesterol Direct Vitamin B12 Urine WBC (Auto) Urine Creatinine Crossmatch 04/23/16 04/23/16 04/23/16 05:41 08:05 08:34 WBC RBC Hgb Hct MCV MCH MCHC RDW Plt Count Lymph % (Auto) Hart % (Auto) Lymph # Hart # Baso # Seg Neutrophils % Seg Neuts % (Manual) Lymphocytes % (Manual) Monocytes % (Manual) Seg Neutrophils # Seg Neutrophils # Man Lymphocytes # (Manual) Monocytes # (Manual) Basophils # (Manual) Percent Retic PT INR APTT Heparin Anti-Xa Level POC ABG pH POC ABG pCO2 POC ABG pO2 Sodium Potassium Chloride 109.5 H Carbon Dioxide 21 L BUN 23 H Creatinine Glucose 227 H POC Glucose 227 H 224 H Calcium 8.2 L Phosphorus Iron TIBC Lactate Dehydrogenase Total Creatine Kinase NT-Pro-B Natriuret Pep Total Protein Albumin Ygljx-6-Vkiedhipk Nbqlm-9-Bxivspyoc Beta Globulins PEP Interpretation Cholesterol LDL Cholesterol Direct Vitamin B12 Urine WBC (Auto) Urine Creatinine Crossmatch 04/23/16 04/23/16 04/23/16 10:45 11:37 22:49 WBC RBC Hgb Hct MCV MCH MCHC RDW Plt Count Lymph % (Auto) Hart % (Auto) Lymph # Hart # Baso # Seg Neutrophils % Seg Neuts % (Manual) Lymphocytes % (Manual) Monocytes % (Manual) Seg Neutrophils # Seg Neutrophils # Man Lymphocytes # (Manual) Monocytes # (Manual) Basophils # (Manual) Percent Retic PT 15.9 H INR 1.28 H APTT Heparin Anti-Xa Level 0.12 L POC ABG pH POC ABG pCO2 POC ABG pO2 Sodium Potassium Chloride Carbon Dioxide BUN Creatinine Glucose POC Glucose 256 H Calcium Phosphorus Iron TIBC Lactate Dehydrogenase Total Creatine Kinase NT-Pro-B Natriuret Pep Total Protein Albumin Czotr-3-Fwvhgbbkf Fhcnh-6-Bowutosci Beta Globulins PEP Interpretation Cholesterol LDL Cholesterol Direct Vitamin B12 Urine WBC (Auto) Urine Creatinine Crossmatch 04/23/16 04/24/16 04/24/16 23:59 05:29 06:03 WBC RBC Hgb Hct MCV MCH MCHC RDW Plt Count Lymph % (Auto) Hart % (Auto) Lymph # Hart # Baso # Seg Neutrophils % Seg Neuts % (Manual) Lymphocytes % (Manual) Monocytes % (Manual) Seg Neutrophils # Seg Neutrophils # Man Lymphocytes # (Manual) Monocytes # (Manual) Basophils # (Manual) Percent Retic PT INR APTT Heparin Anti-Xa Level POC ABG pH 7.464 H POC ABG pCO2 32.4 L POC ABG pO2 115 H Sodium Potassium Chloride Carbon Dioxide BUN Creatinine Glucose POC Glucose 176 H 256 H Calcium Phosphorus Iron TIBC Lactate Dehydrogenase Total Creatine Kinase NT-Pro-B Natriuret Pep Total Protein Albumin Bhkeu-4-Vmtxxtzrn Zkkxc-1-Rhgnxnusk Beta Globulins PEP Interpretation Cholesterol LDL Cholesterol Direct Vitamin B12 Urine WBC (Auto) Urine Creatinine Crossmatch 04/24/16 04/24/16 04/24/16 07:59 12:10 17:17 WBC RBC Hgb Hct MCV MCH MCHC RDW Plt Count Lymph % (Auto) Hart % (Auto) Lymph # Hart # Baso # Seg Neutrophils % Seg Neuts % (Manual) Lymphocytes % (Manual) Monocytes % (Manual) Seg Neutrophils # Seg Neutrophils # Man Lymphocytes # (Manual) Monocytes # (Manual) Basophils # (Manual) Percent Retic PT INR APTT Heparin Anti-Xa Level 0.18 L POC ABG pH POC ABG pCO2 POC ABG pO2 Sodium Potassium Chloride Carbon Dioxide BUN Creatinine Glucose POC Glucose 304 H 325 H Calcium Phosphorus Iron TIBC Lactate Dehydrogenase Total Creatine Kinase NT-Pro-B Natriuret Pep Total Protein Albumin Egqbh-3-Ahzhxszjp Dqtmp-4-Eoduamefc Beta Globulins PEP Interpretation Cholesterol LDL Cholesterol Direct Vitamin B12 Urine WBC (Auto) Urine Creatinine Crossmatch 04/25/16 04/25/16 04/25/16 00:52 06:40 06:44 WBC RBC Hgb Hct MCV MCH MCHC RDW Plt Count Lymph % (Auto) Hart % (Auto) Lymph # Hart # Baso # Seg Neutrophils % Seg Neuts % (Manual) Lymphocytes % (Manual) Monocytes % (Manual) Seg Neutrophils # Seg Neutrophils # Man Lymphocytes # (Manual) Monocytes # (Manual) Basophils # (Manual) Percent Retic PT INR APTT Heparin Anti-Xa Level 0.11 L POC ABG pH POC ABG pCO2 POC ABG pO2 Sodium Potassium Chloride Carbon Dioxide BUN Creatinine Glucose POC Glucose 212 H 184 H Calcium Phosphorus Iron TIBC Lactate Dehydrogenase Total Creatine Kinase NT-Pro-B Natriuret Pep Total Protein Albumin Hpnoh-9-Gqbdxrwoi Wpjrb-2-Awvugvglg Beta Globulins PEP Interpretation Cholesterol LDL Cholesterol Direct Vitamin B12 Urine WBC (Auto) Urine Creatinine Crossmatch 04/25/16 04/25/16 04/25/16 11:40 13:26 17:27 WBC RBC Hgb Hct MCV MCH MCHC RDW Plt Count Lymph % (Auto) Hart % (Auto) Lymph # Hart # Baso # Seg Neutrophils % Seg Neuts % (Manual) Lymphocytes % (Manual) Monocytes % (Manual) Seg Neutrophils # Seg Neutrophils # Man Lymphocytes # (Manual) Monocytes # (Manual) Basophils # (Manual) Percent Retic PT INR APTT Heparin Anti-Xa Level 0.21 L POC ABG pH POC ABG pCO2 POC ABG pO2 Sodium Potassium Chloride Carbon Dioxide BUN Creatinine Glucose POC Glucose 206 H 204 H Calcium Phosphorus Iron TIBC Lactate Dehydrogenase Total Creatine Kinase NT-Pro-B Natriuret Pep Total Protein Albumin Ncbsk-4-Vpjxjxvey Bxlcc-9-Foplqpvkl Beta Globulins PEP Interpretation Cholesterol LDL Cholesterol Direct Vitamin B12 Urine WBC (Auto) Urine Creatinine Crossmatch 04/25/16 04/26/16 04/26/16 23:46 06:31 11:51 WBC RBC Hgb Hct MCV MCH MCHC RDW Plt Count Lymph % (Auto) Hart % (Auto) Lymph # Hart # Baso # Seg Neutrophils % Seg Neuts % (Manual) Lymphocytes % (Manual) Monocytes % (Manual) Seg Neutrophils # Seg Neutrophils # Man Lymphocytes # (Manual) Monocytes # (Manual) Basophils # (Manual) Percent Retic PT INR APTT Heparin Anti-Xa Level POC ABG pH POC ABG pCO2 POC ABG pO2 Sodium Potassium Chloride Carbon Dioxide BUN Creatinine Glucose POC Glucose 162 H 148 H 178 H Calcium Phosphorus Iron TIBC Lactate Dehydrogenase Total Creatine Kinase NT-Pro-B Natriuret Pep Total Protein Albumin Tbnzn-7-Qdowlmgmf Qirux-2-Eovjhwqev Beta Globulins PEP Interpretation Cholesterol LDL Cholesterol Direct Vitamin B12 Urine WBC (Auto) Urine Creatinine Crossmatch 04/26/16 04/26/16 04/26/16 12:17 16:16 18:14 WBC RBC Hgb Hct MCV MCH MCHC RDW Plt Count Lymph % (Auto) Hart % (Auto) Lymph # Hart # Baso # Seg Neutrophils % Seg Neuts % (Manual) Lymphocytes % (Manual) Monocytes % (Manual) Seg Neutrophils # Seg Neutrophils # Man Lymphocytes # (Manual) Monocytes # (Manual) Basophils # (Manual) Percent Retic PT INR APTT Heparin Anti-Xa Level POC ABG pH 7.513 H POC ABG pCO2 POC ABG pO2 76 L Sodium Potassium Chloride Carbon Dioxide BUN Creatinine Glucose POC Glucose 186 H 172 H Calcium Phosphorus Iron TIBC Lactate Dehydrogenase Total Creatine Kinase NT-Pro-B Natriuret Pep Total Protein Albumin Gobnx-8-Udbkuoufj Johix-4-Runxzizpk Beta Globulins PEP Interpretation Cholesterol LDL Cholesterol Direct Vitamin B12 Urine WBC (Auto) Urine Creatinine Crossmatch 04/26/16 04/26/16 04/27/16 19:27 23:28 04:21 WBC 13.1 H RBC 2.99 L Hgb 7.8 L Hct 24.0 L MCV 81 L MCH 26 L MCHC RDW 16.7 H Plt Count 486 H Lymph % (Auto) 12.5 L Hart % (Auto) 7.9 H Lymph # Hart # 1.0 H Baso # Seg Neutrophils % 77.5 H Seg Neuts % (Manual) Lymphocytes % (Manual) Monocytes % (Manual) Seg Neutrophils # 10.2 H Seg Neutrophils # Man Lymphocytes # (Manual) Monocytes # (Manual) Basophils # (Manual) Percent Retic PT INR APTT Heparin Anti-Xa Level 0.22 L POC ABG pH POC ABG pCO2 POC ABG pO2 Sodium Potassium Chloride Carbon Dioxide BUN Creatinine Glucose POC Glucose 141 H Calcium Phosphorus Iron TIBC Lactate Dehydrogenase Total Creatine Kinase NT-Pro-B Natriuret Pep Total Protein Albumin Qbyzf-4-Ygxtqmtnl Qgzrl-3-Aqegkjijh Beta Globulins PEP Interpretation Cholesterol LDL Cholesterol Direct Vitamin B12 Urine WBC (Auto) Urine Creatinine Crossmatch 04/27/16 04/27/16 04/27/16 04:21 05:46 11:04 WBC RBC Hgb Hct MCV MCH MCHC RDW Plt Count Lymph % (Auto) Hart % (Auto) Lymph # Hart # Baso # Seg Neutrophils % Seg Neuts % (Manual) Lymphocytes % (Manual) Monocytes % (Manual) Seg Neutrophils # Seg Neutrophils # Man Lymphocytes # (Manual) Monocytes # (Manual) Basophils # (Manual) Percent Retic PT INR APTT Heparin Anti-Xa Level POC ABG pH 7.489 H POC ABG pCO2 POC ABG pO2 71 L Sodium Potassium Chloride Carbon Dioxide BUN Creatinine 0.6 L Glucose 187 H POC Glucose 192 H Calcium 8.0 L Phosphorus Iron TIBC Lactate Dehydrogenase Total Creatine Kinase NT-Pro-B Natriuret Pep Total Protein 6.0 L Albumin 2.0 L Lpycd-0-Iwriplriv Ofcpb-7-Keolzemqa Beta Globulins PEP Interpretation Cholesterol LDL Cholesterol Direct Vitamin B12 Urine WBC (Auto) Urine Creatinine Crossmatch 04/27/16 04/27/16 04/27/16 14:12 21:58 23:38 WBC RBC Hgb Hct MCV MCH MCHC RDW Plt Count Lymph % (Auto) Hart % (Auto) Lymph # Hart # Baso # Seg Neutrophils % Seg Neuts % (Manual) Lymphocytes % (Manual) Monocytes % (Manual) Seg Neutrophils # Seg Neutrophils # Man Lymphocytes # (Manual) Monocytes # (Manual) Basophils # (Manual) Percent Retic PT INR APTT Heparin Anti-Xa Level 0.24 L POC ABG pH POC ABG pCO2 POC ABG pO2 Sodium Potassium Chloride Carbon Dioxide BUN Creatinine Glucose POC Glucose 216 H 181 H Calcium Phosphorus Iron TIBC Lactate Dehydrogenase Total Creatine Kinase NT-Pro-B Natriuret Pep Total Protein Albumin Rackk-5-Zmuhpcsau Pdeiv-5-Lptxomxrk Beta Globulins PEP Interpretation Cholesterol LDL Cholesterol Direct Vitamin B12 Urine WBC (Auto) Urine Creatinine Crossmatch 04/28/16 04/28/16 04/28/16 04:28 05:52 11:31 WBC RBC Hgb Hct MCV MCH MCHC RDW Plt Count Lymph % (Auto) Hart % (Auto) Lymph # Hart # Baso # Seg Neutrophils % Seg Neuts % (Manual) Lymphocytes % (Manual) Monocytes % (Manual) Seg Neutrophils # Seg Neutrophils # Man Lymphocytes # (Manual) Monocytes # (Manual) Basophils # (Manual) Percent Retic PT INR APTT Heparin Anti-Xa Level POC ABG pH 7.524 H POC ABG pCO2 POC ABG pO2 Sodium Potassium Chloride Carbon Dioxide BUN Creatinine Glucose POC Glucose 254 H 280 H Calcium Phosphorus Iron TIBC Lactate Dehydrogenase Total Creatine Kinase NT-Pro-B Natriuret Pep Total Protein Albumin Nzbfk-1-Xfzcinzdf Xnelr-2-Bhmkqshrl Beta Globulins PEP Interpretation Cholesterol LDL Cholesterol Direct Vitamin B12 Urine WBC (Auto) Urine Creatinine Crossmatch 04/28/16 04/28/16 04/29/16 17:30 19:52 00:47 WBC RBC Hgb Hct MCV MCH MCHC RDW Plt Count Lymph % (Auto) Hart % (Auto) Lymph # Hart # Baso # Seg Neutrophils % Seg Neuts % (Manual) Lymphocytes % (Manual) Monocytes % (Manual) Seg Neutrophils # Seg Neutrophils # Man Lymphocytes # (Manual) Monocytes # (Manual) Basophils # (Manual) Percent Retic PT INR APTT Heparin Anti-Xa Level 0.15 L POC ABG pH POC ABG pCO2 POC ABG pO2 Sodium Potassium Chloride Carbon Dioxide BUN Creatinine Glucose POC Glucose 208 H 265 H Calcium Phosphorus Iron TIBC Lactate Dehydrogenase Total Creatine Kinase NT-Pro-B Natriuret Pep Total Protein Albumin Zuctz-8-Gpcsdoqhn Rsijw-5-Agvoakkwt Beta Globulins PEP Interpretation Cholesterol LDL Cholesterol Direct Vitamin B12 Urine WBC (Auto) Urine Creatinine Crossmatch 04/29/16 04/29/16 04/29/16 04:00 04:00 04:29 WBC 13.4 H RBC 2.56 L Hgb 6.9 L Hct 20.6 L MCV 81 L MCH 27 L MCHC RDW 16.2 H Plt Count 513 H Lymph % (Auto) 10.0 L Hart % (Auto) 12.0 H Lymph # Hart # 1.6 H Baso # Seg Neutrophils % 77.1 H Seg Neuts % (Manual) Lymphocytes % (Manual) Monocytes % (Manual) Seg Neutrophils # 10.4 H Seg Neutrophils # Man Lymphocytes # (Manual) Monocytes # (Manual) Basophils # (Manual) Percent Retic PT INR APTT Heparin Anti-Xa Level POC ABG pH 7.501 H POC ABG pCO2 POC ABG pO2 76 L Sodium Potassium Chloride Carbon Dioxide BUN 27 H Creatinine Glucose 204 H POC Glucose Calcium 8.1 L Phosphorus Iron TIBC Lactate Dehydrogenase Total Creatine Kinase NT-Pro-B Natriuret Pep Total Protein Albumin Dedcm-1-Ysplldiza Nyaji-9-Ryxjccjno Beta Globulins PEP Interpretation Cholesterol LDL Cholesterol Direct Vitamin B12 Urine WBC (Auto) Urine Creatinine Crossmatch 04/29/16 04/29/16 04/29/16 06:03 10:05 10:16 WBC RBC Hgb Hct MCV MCH MCHC RDW Plt Count Lymph % (Auto) Hart % (Auto) Lymph # Hart # Baso # Seg Neutrophils % Seg Neuts % (Manual) Lymphocytes % (Manual) Monocytes % (Manual) Seg Neutrophils # Seg Neutrophils # Man Lymphocytes # (Manual) Monocytes # (Manual) Basophils # (Manual) Percent Retic 3.68 H PT INR APTT Heparin Anti-Xa Level POC ABG pH POC ABG pCO2 POC ABG pO2 Sodium Potassium Chloride Carbon Dioxide BUN Creatinine Glucose POC Glucose 192 H Calcium Phosphorus Iron TIBC Lactate Dehydrogenase Total Creatine Kinase NT-Pro-B Natriuret Pep Total Protein Albumin Pcqec-0-Fllofbxjl Ghjsb-1-Tylltjujr Beta Globulins PEP Interpretation Cholesterol LDL Cholesterol Direct Vitamin B12 Urine WBC (Auto) Urine Creatinine Crossmatch See Detail 04/29/16 04/29/16 04/29/16 10:16 10:16 11:23 WBC RBC Hgb Hct MCV MCH MCHC RDW Plt Count Lymph % (Auto) Hart % (Auto) Lymph # Hart # Baso # Seg Neutrophils % Seg Neuts % (Manual) Lymphocytes % (Manual) Monocytes % (Manual) Seg Neutrophils # Seg Neutrophils # Man Lymphocytes # (Manual) Monocytes # (Manual) Basophils # (Manual) Percent Retic PT INR APTT Heparin Anti-Xa Level POC ABG pH POC ABG pCO2 POC ABG pO2 Sodium Potassium Chloride Carbon Dioxide BUN Creatinine Glucose POC Glucose 116 H Calcium Phosphorus Iron 10 L TIBC 138 L Lactate Dehydrogenase 204 H Total Creatine Kinase NT-Pro-B Natriuret Pep Total Protein Albumin Fsmig-1-Iayyihzuj Ctpbs-2-Nvicgdmcx Beta Globulins PEP Interpretation Cholesterol LDL Cholesterol Direct Vitamin B12 1005 H Urine WBC (Auto) Urine Creatinine Crossmatch 04/29/16 04/29/16 04/30/16 17:34 23:19 03:19 WBC RBC Hgb 9.0 L Hct 26.7 L D MCV MCH MCHC RDW Plt Count Lymph % (Auto) Hart % (Auto) Lymph # Hart # Baso # Seg Neutrophils % Seg Neuts % (Manual) Lymphocytes % (Manual) Monocytes % (Manual) Seg Neutrophils # Seg Neutrophils # Man Lymphocytes # (Manual) Monocytes # (Manual) Basophils # (Manual) Percent Retic PT INR APTT Heparin Anti-Xa Level POC ABG pH POC ABG pCO2 POC ABG pO2 Sodium Potassium Chloride Carbon Dioxide BUN Creatinine Glucose POC Glucose 142 H 242 H Calcium Phosphorus Iron TIBC Lactate Dehydrogenase Total Creatine Kinase NT-Pro-B Natriuret Pep Total Protein Albumin Ozhoj-7-Zlebdlwgz Adbjd-8-Bvgmndzla Beta Globulins PEP Interpretation Cholesterol LDL Cholesterol Direct Vitamin B12 Urine WBC (Auto) Urine Creatinine Crossmatch 04/30/16 04/30/1616 04:10 04:10 04:32 WBC 13.8 H RBC 3.54 L Hgb 9.3 L Hct 29.1 L MCV 82 L MCH 26 L MCHC RDW 16.5 H Plt Count 535 H Lymph % (Auto) 7.5 L Hart % (Auto) 13.8 H Lymph # 1.0 L Hart # 1.9 H Baso # Seg Neutrophils % 78.0 H Seg Neuts % (Manual) Lymphocytes % (Manual) Monocytes % (Manual) Seg Neutrophils # 10.7 H Seg Neutrophils # Man Lymphocytes # (Manual) Monocytes # (Manual) Basophils # (Manual) Percent Retic PT INR APTT Heparin Anti-Xa Level POC ABG pH 7.519 H POC ABG pCO2 33.6 L POC ABG pO2 79 L Sodium 146 H Potassium Chloride Carbon Dioxide BUN Creatinine 0.7 L Glucose 242 H POC Glucose Calcium 8.3 L Phosphorus Iron TIBC Lactate Dehydrogenase Total Creatine Kinase NT-Pro-B Natriuret Pep Total Protein Albumin Hkhpe-4-Pllergabv Hwhcg-7-Tldepvxbk Beta Globulins PEP Interpretation Cholesterol LDL Cholesterol Direct Vitamin B12 Urine WBC (Auto) Urine Creatinine Crossmatch 04/30/16 04/30/16 04/30/16 05:33 11:23 17:26 WBC RBC Hgb Hct MCV MCH MCHC RDW Plt Count Lymph % (Auto) Hart % (Auto) Lymph # Hart # Baso # Seg Neutrophils % Seg Neuts % (Manual) Lymphocytes % (Manual) Monocytes % (Manual) Seg Neutrophils # Seg Neutrophils # Man Lymphocytes # (Manual) Monocytes # (Manual) Basophils # (Manual) Percent Retic PT INR APTT Heparin Anti-Xa Level POC ABG pH POC ABG pCO2 POC ABG pO2 Sodium Potassium Chloride Carbon Dioxide BUN Creatinine Glucose POC Glucose 242 H 305 H 281 H Calcium Phosphorus Iron TIBC Lactate Dehydrogenase Total Creatine Kinase NT-Pro-B Natriuret Pep Total Protein Albumin Nvvvy-4-Mrxnikvkh Mjvuo-6-Dewlwcoby Beta Globulins PEP Interpretation Cholesterol LDL Cholesterol Direct Vitamin B12 Urine WBC (Auto) Urine Creatinine Crossmatch 04/30/16 05/01/16 05/01/16 23:53 04:00 04:00 WBC 15.9 H RBC 2.99 L Hgb 7.9 L Hct 24.4 L MCV 82 L MCH 26 L MCHC RDW 16.9 H Plt Count 481 H Lymph % (Auto) 9.3 L Hart % (Auto) 15.0 H Lymph # Hart # 2.4 H Baso # Seg Neutrophils % 74.9 H Seg Neuts % (Manual) Lymphocytes % (Manual) Monocytes % (Manual) Seg Neutrophils # 11.9 H Seg Neutrophils # Man Lymphocytes # (Manual) Monocytes # (Manual) Basophils # (Manual) Percent Retic PT INR APTT Heparin Anti-Xa Level POC ABG pH POC ABG pCO2 POC ABG pO2 Sodium 147 H Potassium Chloride 107.8 H Carbon Dioxide BUN 22 H Creatinine 0.7 L Glucose 229 H POC Glucose 207 H Calcium 8.2 L Phosphorus Iron TIBC Lactate Dehydrogenase Total Creatine Kinase NT-Pro-B Natriuret Pep Total Protein Albumin Xnphp-6-Obskymlmv Ethzn-2-Mvrwguuol Beta Globulins PEP Interpretation Cholesterol LDL Cholesterol Direct Vitamin B12 Urine WBC (Auto) Urine Creatinine Crossmatch 05/01/16 05/01/16 05/01/16 05:12 07:41 12:33 WBC RBC Hgb Hct MCV MCH MCHC RDW Plt Count Lymph % (Auto) Hart % (Auto) Lymph # Hart # Baso # Seg Neutrophils % Seg Neuts % (Manual) Lymphocytes % (Manual) Monocytes % (Manual) Seg Neutrophils # Seg Neutrophils # Man Lymphocytes # (Manual) Monocytes # (Manual) Basophils # (Manual) Percent Retic PT INR APTT Heparin Anti-Xa Level 0.16 L POC ABG pH POC ABG pCO2 POC ABG pO2 Sodium Potassium Chloride Carbon Dioxide BUN Creatinine Glucose POC Glucose 284 H 186 H Calcium Phosphorus Iron TIBC Lactate Dehydrogenase Total Creatine Kinase NT-Pro-B Natriuret Pep Total Protein Albumin Kdsiz-6-Iiwqozvux Nxtwd-0-Rwlxnldbn Beta Globulins PEP Interpretation Cholesterol LDL Cholesterol Direct Vitamin B12 Urine WBC (Auto) Urine Creatinine Crossmatch 05/01/16 05/01/16 05/02/16 17:24 23:19 04:48 WBC 17.2 H RBC 3.09 L Hgb 8.1 L Hct 25.5 L MCV 83 L MCH 26 L MCHC RDW 17.3 H Plt Count 507 H Lymph % (Auto) 8.0 L Hart % (Auto) 13.6 H Lymph # Hart # 2.3 H Baso # Seg Neutrophils % 77.5 H Seg Neuts % (Manual) Lymphocytes % (Manual) Monocytes % (Manual) Seg Neutrophils # 13.4 H Seg Neutrophils # Man Lymphocytes # (Manual) Monocytes # (Manual) Basophils # (Manual) Percent Retic PT INR APTT Heparin Anti-Xa Level POC ABG pH POC ABG pCO2 POC ABG pO2 Sodium Potassium Chloride Carbon Dioxide BUN Creatinine Glucose POC Glucose 171 H 132 H Calcium Phosphorus Iron TIBC Lactate Dehydrogenase Total Creatine Kinase NT-Pro-B Natriuret Pep Total Protein Albumin Iwcng-6-Szkmubzdq Vwowh-8-Uvqwrqcbp Beta Globulins PEP Interpretation Cholesterol LDL Cholesterol Direct Vitamin B12 Urine WBC (Auto) Urine Creatinine Crossmatch 05/02/16 05/02/16 05/02/16 04:48 04:48 05:42 WBC RBC Hgb Hct MCV MCH MCHC RDW Plt Count Lymph % (Auto) Hart % (Auto) Lymph # Hart # Baso # Seg Neutrophils % Seg Neuts % (Manual) Lymphocytes % (Manual) Monocytes % (Manual) Seg Neutrophils # Seg Neutrophils # Man Lymphocytes # (Manual) Monocytes # (Manual) Basophils # (Manual) Percent Retic PT INR APTT Heparin Anti-Xa Level 0.19 L POC ABG pH POC ABG pCO2 POC ABG pO2 Sodium 149 H Potassium Chloride 109.9 H Carbon Dioxide BUN 24 H Creatinine Glucose 224 H POC Glucose 253 H Calcium 8.2 L Phosphorus Iron TIBC Lactate Dehydrogenase Total Creatine Kinase NT-Pro-B Natriuret Pep Total Protein Albumin Ufhxj-0-Gpffquvwd Lfqrb-0-Iunbvixke Beta Globulins PEP Interpretation Cholesterol LDL Cholesterol Direct Vitamin B12 Urine WBC (Auto) Urine Creatinine Crossmatch 05/02/16 05/02/16 05/02/16 12:01 16:40 23:35 WBC RBC Hgb Hct MCV MCH MCHC RDW Plt Count Lymph % (Auto) Hart % (Auto) Lymph # Hart # Baso # Seg Neutrophils % Seg Neuts % (Manual) Lymphocytes % (Manual) Monocytes % (Manual) Seg Neutrophils # Seg Neutrophils # Man Lymphocytes # (Manual) Monocytes # (Manual) Basophils # (Manual) Percent Retic PT INR APTT Heparin Anti-Xa Level POC ABG pH POC ABG pCO2 POC ABG pO2 Sodium Potassium Chloride Carbon Dioxide BUN Creatinine Glucose POC Glucose 197 H 126 H 303 H Calcium Phosphorus Iron TIBC Lactate Dehydrogenase Total Creatine Kinase NT-Pro-B Natriuret Pep Total Protein Albumin Ccduw-0-Jgxtkjgqd Ygfha-6-Ulcxmlqpr Beta Globulins PEP Interpretation Cholesterol LDL Cholesterol Direct Vitamin B12 Urine WBC (Auto) Urine Creatinine Crossmatch 05/03/16 05/03/16 05/03/16 04:31 04:31 04:31 WBC 19.1 H RBC 3.15 L Hgb 8.6 L Hct 25.7 L MCV 82 L MCH MCHC RDW 17.4 H Plt Count 525 H Lymph % (Auto) Hart % (Auto) Lymph # Hart # Baso # Seg Neutrophils % Seg Neuts % (Manual) Lymphocytes % (Manual) 10.0 L Monocytes % (Manual) 13.0 H Seg Neutrophils # Seg Neutrophils # Man 13.2 H Lymphocytes # (Manual) Monocytes # (Manual) 2.5 H Basophils # (Manual) 0.2 H Percent Retic PT INR APTT Heparin Anti-Xa Level 0.16 L POC ABG pH POC ABG pCO2 POC ABG pO2 Sodium 151 H Potassium Chloride 112.9 H Carbon Dioxide BUN 24 H Creatinine 0.7 L Glucose 303 H POC Glucose Calcium Phosphorus Iron TIBC Lactate Dehydrogenase Total Creatine Kinase NT-Pro-B Natriuret Pep Total Protein Albumin Dsdot-0-Pdfxvsdmq Bwren-0-Emdnmbohp Beta Globulins PEP Interpretation Cholesterol LDL Cholesterol Direct Vitamin B12 Urine WBC (Auto) Urine Creatinine Crossmatch 05/03/16 05/03/16 05/04/16 12:08 18:05 00:11 WBC RBC Hgb Hct MCV MCH MCHC RDW Plt Count Lymph % (Auto) Hart % (Auto) Lymph # Hart # Baso # Seg Neutrophils % Seg Neuts % (Manual) Lymphocytes % (Manual) Monocytes % (Manual) Seg Neutrophils # Seg Neutrophils # Man Lymphocytes # (Manual) Monocytes # (Manual) Basophils # (Manual) Percent Retic PT INR APTT Heparin Anti-Xa Level POC ABG pH POC ABG pCO2 POC ABG pO2 Sodium Potassium Chloride Carbon Dioxide BUN Creatinine Glucose POC Glucose 452 H 370 H 374 H Calcium Phosphorus Iron TIBC Lactate Dehydrogenase Total Creatine Kinase NT-Pro-B Natriuret Pep Total Protein Albumin Gwbkn-8-Kqwbohqen Htnmd-6-Frhwtzowa Beta Globulins PEP Interpretation Cholesterol LDL Cholesterol Direct Vitamin B12 Urine WBC (Auto) Urine Creatinine Crossmatch 05/04/16 05/04/16 05/04/16 04:31 04:31 04:31 WBC 19.8 H RBC 2.90 L Hgb 7.8 L Hct 23.8 L MCV 82 L MCH 27 L MCHC RDW 17.9 H Plt Count 504 H Lymph % (Auto) Hart % (Auto) Lymph # Hart # Baso # Seg Neutrophils % Seg Neuts % (Manual) Lymphocytes % (Manual) 11.0 L Monocytes % (Manual) 8.0 H Seg Neutrophils # Seg Neutrophils # Man 13.3 H Lymphocytes # (Manual) Monocytes # (Manual) 1.6 H Basophils # (Manual) Percent Retic PT INR APTT Heparin Anti-Xa Level 0.15 L POC ABG pH POC ABG pCO2 POC ABG pO2 Sodium 146 H Potassium Chloride Carbon Dioxide BUN 30 H Creatinine 0.7 L Glucose 321 H POC Glucose Calcium 8.3 L Phosphorus Iron TIBC Lactate Dehydrogenase Total Creatine Kinase NT-Pro-B Natriuret Pep Total Protein Albumin Gkafb-6-Ptyrjbdqp Sifvb-4-Shcoepxpw Beta Globulins PEP Interpretation Cholesterol LDL Cholesterol Direct Vitamin B12 Urine WBC (Auto) Urine Creatinine Crossmatch 05/04/16 05/04/16 05/04/16 10:20 11:57 17:36 WBC RBC Hgb Hct MCV MCH MCHC RDW Plt Count Lymph % (Auto) Hart % (Auto) Lymph # Hart # Baso # Seg Neutrophils % Seg Neuts % (Manual) Lymphocytes % (Manual) Monocytes % (Manual) Seg Neutrophils # Seg Neutrophils # Man Lymphocytes # (Manual) Monocytes # (Manual) Basophils # (Manual) Percent Retic PT INR APTT Heparin Anti-Xa Level POC ABG pH POC ABG pCO2 POC ABG pO2 Sodium Potassium Chloride Carbon Dioxide BUN Creatinine Glucose POC Glucose 303 H 271 H Calcium Phosphorus Iron TIBC Lactate Dehydrogenase Total Creatine Kinase NT-Pro-B Natriuret Pep Total Protein Albumin Rhwmh-0-Vrwjblrvo Hcqdo-7-Axyvktlqn Beta Globulins PEP Interpretation Cholesterol LDL Cholesterol Direct Vitamin B12 Urine WBC (Auto) > 182.0 H Urine Creatinine Crossmatch 05/04/16 05/05/16 05/05/16 23:53 04:13 04:13 WBC 20.9 H RBC 2.92 L Hgb 7.6 L Hct 23.9 L MCV 82 L MCH 26 L MCHC RDW 17.9 H Plt Count 526 H Lymph % (Auto) Hart % (Auto) Lymph # Hart # Baso # Seg Neutrophils % Seg Neuts % (Manual) 93.0 H Lymphocytes % (Manual) 2.0 L Monocytes % (Manual) Seg Neutrophils # Seg Neutrophils # Man 19.4 H Lymphocytes # (Manual) 0.4 L Monocytes # (Manual) Basophils # (Manual) Percent Retic PT INR APTT Heparin Anti-Xa Level POC ABG pH POC ABG pCO2 POC ABG pO2 Sodium 146 H Potassium Chloride Carbon Dioxide BUN 30 H Creatinine 0.7 L Glucose 250 H POC Glucose 235 H Calcium 8.1 L Phosphorus Iron TIBC Lactate Dehydrogenase Total Creatine Kinase NT-Pro-B Natriuret Pep Total Protein Albumin Hunzz-3-Lrcmpjrvp Rykuu-0-Eonvafhju Beta Globulins PEP Interpretation Cholesterol LDL Cholesterol Direct Vitamin B12 Urine WBC (Auto) Urine Creatinine Crossmatch 05/05/16 05/05/16 05/05/16 05:27 07:36 12:06 WBC RBC Hgb Hct MCV MCH MCHC RDW Plt Count Lymph % (Auto) Hart % (Auto) Lymph # Hart # Baso # Seg Neutrophils % Seg Neuts % (Manual) Lymphocytes % (Manual) Monocytes % (Manual) Seg Neutrophils # Seg Neutrophils # Man Lymphocytes # (Manual) Monocytes # (Manual) Basophils # (Manual) Percent Retic PT INR APTT Heparin Anti-Xa Level < 0.10 L POC ABG pH POC ABG pCO2 POC ABG pO2 Sodium Potassium Chloride Carbon Dioxide BUN Creatinine Glucose POC Glucose 287 H 301 H Calcium Phosphorus Iron TIBC Lactate Dehydrogenase Total Creatine Kinase NT-Pro-B Natriuret Pep Total Protein Albumin Azlag-1-Mpmggsjxm Pzoyf-4-Mtkbvweoc Beta Globulins PEP Interpretation Cholesterol LDL Cholesterol Direct Vitamin B12 Urine WBC (Auto) Urine Creatinine Crossmatch 05/05/16 05/05/16 05/06/16 15:58 17:30 04:23 WBC RBC Hgb Hct MCV MCH MCHC RDW Plt Count Lymph % (Auto) Hart % (Auto) Lymph # Hart # Baso # Seg Neutrophils % Seg Neuts % (Manual) Lymphocytes % (Manual) Monocytes % (Manual) Seg Neutrophils # Seg Neutrophils # Man Lymphocytes # (Manual) Monocytes # (Manual) Basophils # (Manual) Percent Retic PT INR APTT Heparin Anti-Xa Level 0.17 L 0.15 L POC ABG pH POC ABG pCO2 POC ABG pO2 Sodium Potassium Chloride Carbon Dioxide BUN Creatinine Glucose POC Glucose 226 H Calcium Phosphorus Iron TIBC Lactate Dehydrogenase Total Creatine Kinase NT-Pro-B Natriuret Pep Total Protein Albumin Aefjj-0-Lhdqgryxj Nbzzn-6-Atondbaqi Beta Globulins PEP Interpretation Cholesterol LDL Cholesterol Direct Vitamin B12 Urine WBC (Auto) Urine Creatinine Crossmatch 05/06/16 05/06/16 05:30 05:37 WBC RBC Hgb Hct MCV MCH MCHC RDW Plt Count Lymph % (Auto) Hart % (Auto) Lymph # Hart # Baso # Seg Neutrophils % Seg Neuts % (Manual) Lymphocytes % (Manual) Monocytes % (Manual) Seg Neutrophils # Seg Neutrophils # Man Lymphocytes # (Manual) Monocytes # (Manual) Basophils # (Manual) Percent Retic PT INR APTT Heparin Anti-Xa Level POC ABG pH 7.511 H POC ABG pCO2 POC ABG pO2 Sodium Potassium Chloride Carbon Dioxide BUN Creatinine Glucose POC Glucose 168 H Calcium Phosphorus Iron TIBC Lactate Dehydrogenase Total Creatine Kinase NT-Pro-B Natriuret Pep Total Protein Albumin Wlmfs-4-Nfsuquydv Kkgof-1-Radhxzttq Beta Globulins PEP Interpretation Cholesterol LDL Cholesterol Direct Vitamin B12 Urine WBC (Auto) Urine Creatinine Crossmatch
--- NOTE | 2016-05-06 18:11 | Progress Note ---
Assessment and Plan Assessment and plan: 1. Acute respiratory failure. Patient reintubated on 04/17/16. Continue mechanical ventilation per pulmonary. Tracheostomy on 04/29/16. Continue CPAP trials as per pulmonary; cotn to have temp spikes; agree with d/c antibiotics that were started overnight; f/u repeat blood NGTD; f/u as per pulmonary 2. Acute CVA -right cerebellum; subacute infarct in the right cerebellar hemisphere with associated edema and mass effect as previously described. Patient also with multiple areas of acute infarct in the left occipital and frontal lobes that are most likely embolic. LIZZIE done- No thrombus but decreased flow- cotn coumadin and heparin as bridge 3. Encephalopathy. EEG normal. Etiology likely secondary to CVA +/- hypertension. supportive care 4. Accelerated hypertension- now BP controlled; cont antihypertensive medications 5. CAD-stable; contn meds 6. . Seizures-continue Keppra. EEG normal. 7. Type 2 diabetes mellitus-. Glycemic control; cotn current insulin regime. 8. History of aortic dissection status post repair. 9. Oropharyngeal dysphagia. Patient failed swallow evaluation. Status post PEG placement on 04/17. Cont PEG feeds 10. DVT prophylaxis-on heparin drip. 11. GI prophylaxis-Pepcid CCT exclusive of all other billable procedures 31 minutes History Interval history: f/u respiratory failure; hypernatremia; acute renal failure Patient seen at the bedside; vented; no family present; Hospitalist Physical - Constitutional Vitals: Temp Pulse Resp BP Pulse Ox 99.7 F H 88 25 H 125/73 100 05/06/16 16:00 05/06/16 16:45 05/06/16 16:45 05/06/16 16:45 05/06/16 16:45 General appearance: Present: no acute distress, other (tracheostomy) - EENT Eyes: Present: PERRL, EOM intact. Absent: scleral icterus, conjunctival injection ENT: hearing intact, clear oral mucosa, other (trach in place), no oropharyngeal erythema, no poor dentition - Neck Neck: Present: supple, normal ROM. Absent: enlarged thyroid, masses or JVD - Respiratory Respiratory effort: normal Respiratory: negative: diminished - Cardiovascular Rhythm: regular Heart Sounds: Present: S1 & S2. Absent: gallop - Extremities Extremities: no ischemia, pulses intact, pulses symmetrical, No edema Peripheral Pulses: within normal limits - Abdominal General gastrointestinal: soft, non-tender, non-distended, normal bowel sounds - Integumentary Integumentary: Present: clear - Psychiatric Psychiatric: other - Neurologic Neurologic: CNII-XII intact Results - Labs CBC & Chem 7: 05/05/16 04:13 05/05/16 04:13 Labs: Laboratory Last Values WBC 20.9 K/mm3 (4.5-11.0) H 05/05/16 04:13 RBC 2.92 M/mm3 (3.65-5.03) L 05/05/16 04:13 Hgb 7.6 gm/dl (11.8-15.2) L 05/05/16 04:13 Hct 23.9 % (35.5-45.6) L 05/05/16 04:13 MCV 82 fl (84-94) L 05/05/16 04:13 MCH 26 pg (28-32) L 05/05/16 04:13 MCHC 32 % (32-34) 05/05/16 04:13 RDW 17.9 % (13.2-15.2) H 05/05/16 04:13 Plt Count 526 K/mm3 (140-440) H 05/05/16 04:13 Lymph % (Auto) 8.0 % (13.4-35.0) L 05/02/16 04:48 Pierce % (Auto) 13.6 % (0.0-7.3) H 05/02/16 04:48 Eos % (Auto) 0.2 % (0.0-4.3) 05/02/16 04:48 Baso % (Auto) 0.7 % (0.0-1.8) 05/02/16 04:48 Lymph # 1.4 K/mm3 (1.2-5.4) 05/02/16 04:48 Pierce # 2.3 K/mm3 (0.0-0.8) H 05/02/16 04:48 Eos # 0.0 K/mm3 (0.0-0.4) 05/02/16 04:48 Baso # 0.1 K/mm3 (0.0-0.1) 05/02/16 04:48 Add Manual Diff Complete 05/05/16 04:13 Total Counted 100 05/05/16 04:13 Seg Neutrophils % 77.5 % (40.0-70.0) H 05/02/16 04:48 Seg Neuts % (Manual) 93.0 % (40.0-70.0) H 05/05/16 04:13 Band Neutrophils % 0 % 05/05/16 04:13 Lymphocytes % (Manual) 2.0 % (13.4-35.0) L 05/05/16 04:13 Reactive Lymphs % (Man) 0 % 05/05/16 04:13 Monocytes % (Manual) 4.0 % (0.0-7.3) 05/05/16 04:13 Eosinophils % (Manual) 0 % (0.0-4.3) 05/05/16 04:13 Basophils % (Manual) 0 % (0.0-1.8) 05/05/16 04:13 Metamyelocytes % 0 % 05/05/16 04:13 Myelocytes % 1.0 % 05/05/16 04:13 Promyelocytes % 0 % 05/05/16 04:13 Blast Cells % 0 % 05/05/16 04:13 Nucleated RBC % Not Reportable 05/05/16 04:13 Seg Neutrophils # 13.4 K/mm3 (1.8-7.7) H 05/02/16 04:48 Seg Neutrophils # Man 19.4 K/mm3 (1.8-7.7) H 05/05/16 04:13 Band Neutrophils # 0.0 K/mm3 05/05/16 04:13 Lymphocytes # (Manual) 0.4 K/mm3 (1.2-5.4) L 05/05/16 04:13 Abs React Lymphs (Man) 0.0 K/mm3 05/05/16 04:13 Monocytes # (Manual) 0.8 K/mm3 (0.0-0.8) 05/05/16 04:13 Eosinophils # (Manual) 0.0 K/mm3 (0.0-0.4) 05/05/16 04:13 Basophils # (Manual) 0.0 K/mm3 (0.0-0.1) 05/05/16 04:13 Metamyelocytes # 0.0 K/mm3 05/05/16 04:13 Myelocytes # 0.2 K/mm3 05/05/16 04:13 Promyelocytes # 0.0 K/mm3 05/05/16 04:13 Blast Cells # 0.0 K/mm3 05/05/16 04:13 WBC Morphology Not Reportable 05/05/16 04:13 Hypersegmented Neuts Few 05/05/16 04:13 Hyposegmented Neuts Not Reportable 05/05/16 04:13 Hypogranular Neuts Not Reportable 05/05/16 04:13 Smudge Cells Few 05/05/16 04:13 Toxic Granulation Not Reportable 05/05/16 04:13 Toxic Vacuolation Not Reportable 05/05/16 04:13 Dohle Bodies Not Reportable 05/05/16 04:13 Pelger-Huet Anomaly Not Reportable 05/05/16 04:13 Corina Rods Not Reportable 05/05/16 04:13 Platelet Estimate Appears increased 05/05/16 04:13 Clumped Platelets Not Reportable 05/05/16 04:13 Plt Clumps, EDTA Not Reportable 05/05/16 04:13 Large Platelets Not Reportable 05/05/16 04:13 Giant Platelets Rare 05/05/16 04:13 Platelet Satelliting Not Reportable 05/05/16 04:13 Plt Morphology Comment Not Reportable 05/05/16 04:13 RBC Morphology Not Reportable 05/05/16 04:13 Dimorphic RBCs Not Reportable 05/05/16 04:13 Polychromasia Not Reportable 05/05/16 04:13 Hypochromasia 1+ 05/05/16 04:13 Poikilocytosis Not Reportable 05/05/16 04:13 Anisocytosis 1+ 05/05/16 04:13 Microcytosis Not Reportable 05/05/16 04:13 Macrocytosis Not Reportable 05/05/16 04:13 Spherocytes Not Reportable 05/05/16 04:13 Pappenheimer Bodies Not Reportable 05/05/16 04:13 Sickle Cells Not Reportable 05/05/16 04:13 Target Cells Rare 05/05/16 04:13 Tear Drop Cells Not Reportable 05/05/16 04:13 Ovalocytes Not Reportable 05/05/16 04:13 Helmet Cells Not Reportable 05/05/16 04:13 [place] Bodies Not Reportable 05/05/16 04:13 [place] Rings Not Reportable 05/05/16 04:13 Almo Cells Not Reportable 05/05/16 04:13 Bite Cells Not Reportable 05/05/16 04:13 Crenated Cell Not Reportable 05/05/16 04:13 Elliptocytes Not Reportable 05/05/16 04:13 Acanthocytes (Spur) Not Reportable 05/05/16 04:13 Rouleaux Not Reportable 05/05/16 04:13 Hemoglobin C Crystals Not Reportable 05/05/16 04:13 Schistocytes Not Reportable 05/05/16 04:13 Malaria parasites Not Reportable 05/05/16 04:13 Percent Retic 3.68 % (0.78-2.58) H 04/29/16 10:16 [place] Bodies Not Reportable 05/05/16 04:13 Hem Pathologist Commnt No 05/05/16 04:13 PT 15.9 Sec. (12.2-14.9) H 04/23/16 10:45 INR 1.28 (0.87-1.13) H 04/23/16 10:45 APTT 42.1 Sec. (24.2-36.6) H 04/04/16 09:55 Heparin Anti-Xa Level 0.15 U.I./ml (0.3-0.7) L 05/06/16 04:23 POC ABG pH 7.511 (7.35-7.45) H 05/06/16 05:30 POC ABG pCO2 36.2 (35-45) 05/06/16 05:30 POC ABG pO2 92 (80-105) 05/06/16 05:30 POC ABG HCO3 28.9 05/06/16 05:30 POC ABG Total CO2 30 05/06/16 05:30 POC ABG O2 Sat 98 05/06/16 05:30 POC ABG Base Excess 6 05/06/16 05:30 VBG pH 7.418 (7.320-7.420) 03/24/16 14:00 FiO2 25 % 05/06/16 05:30 Sodium 146 mmol/L (137-145) H 05/05/16 04:13 Potassium 3.7 mmol/L (3.6-5.0) 05/05/16 04:13 Chloride 106.0 mmol/L (98-107) 05/05/16 04:13 Carbon Dioxide 27 mmol/L (22-30) 05/05/16 04:13 Anion Gap 17 mmol/L 05/05/16 04:13 BUN 30 mg/dL (9-20) H 05/05/16 04:13 Creatinine 0.7 mg/dL (0.8-1.5) L 05/05/16 04:13 Estimated GFR > 60 ml/min 05/05/16 04:13 BUN/Creatinine Ratio 42.85 % 05/05/16 04:13 Glucose 250 mg/dL (75-100) H 05/05/16 04:13 POC Glucose 160 (70-105) H 05/06/16 17:22 Hemoglobin A1c 9.6 % (4-6) H 03/24/16 14:00 Lactic Acid 1.6 mmol/L (0.7-2.0) 04/17/16 12:17 Calcium 8.1 mg/dL (8.4-10.2) L 05/05/16 04:13 Phosphorus 2.3 mg/dL (2.5-4.5) L D 03/30/16 04:00 Magnesium 1.9 mg/dL (1.7-2.3) 03/30/16 04:00 Iron 10 ug/dL (49-181) L 04/29/16 10:16 TIBC 138 mcg/dL (250-450) L 04/29/16 10:16 Ferritin 336.4 ng/mL (13.0-400.0) 04/29/16 10:16 Total Bilirubin < 0.2 mg/dL (0.1-1.2) 04/27/16 04:21 AST 18 units/L (5-40) 04/27/16 04:21 ALT 39 units/L (7-56) 04/27/16 04:21 Alkaline Phosphatase 103 units/L (35-129) 04/27/16 04:21 Lactate Dehydrogenase 204 units/L (91-180) H 04/29/16 10:16 Total Creatine Kinase 356 units/L (55-170) H 03/28/16 13:29 Troponin T < 0.010 ng/mL (0.00-0.029) 03/28/16 13:29 NT-Pro-B Natriuret Pep 897.9 pg/mL (0-900) 04/03/16 04:10 Serum Total Protein 7.1 g/dL (6.1-8.1) 03/25/16 13:00 Total Protein 6.0 g/dL (6.3-8.2) L 04/27/16 04:21 Albumin 2.0 g/dL (3.9-5) L 04/27/16 04:21 Albumin/Globulin Ratio 0.5 % 04/27/16 04:21 Iopvd-1-[id number] See scanned report 03/31/16 12:20 Sizzq-1-Rofhxdmrw See scanned report 03/31/16 12:20 Beta Globulins See scanned report 03/31/16 12:20 Yski-6-Sbjjqlfpzufkb 2.46 mg/L (<=2.51) 03/25/16 13:00 Gamma Globulins See scanned report 03/31/16 12:20 Abnorm Protein Band 1 see below (()) 03/25/16 13:00 PEP Interpretation See scanned report 03/31/16 12:20 Triglycerides 88 mg/dL (2-149) 03/24/16 17:58 Cholesterol 221 mg/dL (50-199) H 03/24/16 17:58 LDL Cholesterol Direct 146 mg/dL (50-130) H 03/24/16 17:58 HDL Cholesterol 58 mg/dL (40-59) 03/24/16 17:58 Cholesterol/HDL Ratio 3.81 % 03/24/16 17:58 Vitamin B12 1005 pg/mL (211-911) H 04/29/16 10:16 Folate 12.78 ng/mL (7.3-26.0) 04/29/16 10:16 Urine Color Yellow (Yellow) 05/04/16 10:20 Urine Turbidity Cloudy (Clear) 05/04/16 10:20 Urine pH 5.0 (5.0-7.0) 05/04/16 10:20 Ur Specific [place] 1.017 (1.003-1.030) 05/04/16 10:20 Urine Protein 100 mg/dl mg/dL (Negative) 05/04/16 10:20 Urine Glucose (UA) >=500 mg/dL (Negative) 05/04/16 10:20 Urine Ketones Neg mg/dL (Negative) 05/04/16 10:20 Urine Blood Sm (Negative) 05/04/16 10:20 Urine Nitrite Neg (Negative) 05/04/16 10:20 Urine Bilirubin Neg (Negative) 05/04/16 10:20 Urine Urobilinogen 2.0 mg/dL (<2.0) 05/04/16 10:20 Ur Leukocyte Esterase Lg (Negative) 05/04/16 10:20 Urine WBC (Auto) > 182.0 /HPF (0.0-6.0) H 05/04/16 10:20 Urine RBC (Auto) 13.0 /HPF (0.0-6.0) 05/04/16 10:20 U Epithel Cells (Auto) < 1.0 /HPF (0-13.0) 05/04/16 10:20 Urine Bacteria (Auto) 1+ /HPF (Negative) 05/04/16 10:20 Urine WBC Clumps 3+ /HPF 05/04/16 10:20 Hyaline Casts 1 /LPF 03/24/16 14:27 Urine Mucus Few /HPF 05/04/16 10:20 Urine Yeast (Budding) 1+ /HPF 05/04/16 10:20 Ur Random Creatinine See scanned report 03/31/16 12:20 U Random Total Protein See scanned report 03/31/16 12:20 Urine Creatinine 85.5 mg/dL (0.1-20.0) H 04/20/16 11:50 Protein/Creatinin Ratio See scanned report 03/31/16 12:20 Urine Sodium 17 mEq/L 04/20/16 11:50 U Abnormal Prot Band 1 See scanned report 03/31/16 12:20 U Abnormal Prot Band 2 See scanned report 03/31/16 12:20 U Abnormal Prot Band 3 See scanned report 03/31/16 12:20 Ketones 1.0 mg/dL (0.2-2.8) 03/24/16 14:00 Blood Type A POSITIVE 04/29/16 10:05 Antibody Screen Negative 04/29/16 10:05 Crossmatch See Detail 04/29/16 10:05
[2016-05-07] MEDS: NOVOLOG SUB-Q SCH ×4 (00:23→20:22)
[2016-05-07] MEDS: DUONEB 0.5 MG-3 MG/3 ML SOLN IH SCH ×4 (02:05→19:26)
[2016-05-07] MEDS: HEPARIN/ 0.45% NACL-25,000 UNIT/500 ML 500 ML IV SCH ×2 (06:54→13:32)
--- NOTE | 2016-05-07 07:43 | Vascular Lab Report ---
LOWER EXTREMITY VENOUS DUPLEX: REASON FOR EXAM: Swelling. COMMENTS ON THE RIGHT: All veins visualized are freely compressible without evidence of internal echogenicity. Flow is spontaneous and phasic throughout. COMMENTS ON THE LEFT: All veins visualized are freely compressible without evidence of internal echogenicity. Flow is spontaneous and phasic throughout. IMPRESSION: No evidence of acute or chronic deep venous thrombosis in either lower extremity.
--- NOTE | 2016-05-07 07:45 | Vascular Lab Report ---
UPPER EXTREMITY VENOUS DUPLEX: REASON FOR EXAM: Swelling COMMENTS ON THE RIGHT: All arm veins visualized are freely compressible without evidence of internal echogenicity. The subclavian and internal jugular veins are free of thrombus. Flow is spontaneous and phasic throughout. COMMENTS ON THE LEFT: All arm veins visualized are freely compressible without evidence of internal echogenicity. The subclavian and internal jugular veins are free of thrombus. Flow is spontaneous and phasic throughout. IMPRESSION: No evidence of acute or chronic deep venous thrombosis in the upper extremities.
[2016-05-07] MEDS: NORMODYNE PO SCH ×3 (08:00→20:23)
--- NOTE | 2016-05-07 11:49 | Progress Note ---
Assessment and Plan 61 y/o male with acute encephalopathy, secondary to embolic strokes, now with acute respiratory failure requiring re-intubation. 1. Fever: Still spiking but appears to be trending down. Dopplers negative. Does have some GPC's in urine but not speciated yet. spoke with pharmacy. Will continue to hold on abx therapy for now. Check daily for speciation. 2. Monitor positioning of trach. Distal obstruction is non-occlusive. Spoke with surgery and tract is not mature enough to change at this time. There is some swelling around the neck. Will continue to monitor this. 3. Continue PSV trials as tolerated, tomorrow may consider 24 hour trial. For tonight, rest on A/C and back to PSV in the am 4. Case management working on funding and possible placement CCT 31 minutes. Subjective Date of service: 05/07/16 Principal diagnosis: CVA, acute respiratory failure Interval history: Still spiking temps but appears that fever curve is trending down. Shirt Ironer is at bedside. Does have some swelling around the trach site and some oozing of bloody serosanginous fluid. Dopplers were negative for clot. Remains on heparin. Objective Vital Signs - 12hr 05/06/16 05/07/16 05/07/16 23:52 00:00 00:02 Temperature 99.7 F H Pulse Rate 87 86 Pulse Rate [ Apical] Pulse Rate [ Bilateral] Pulse Rate [ From Monitor] Respiratory 21 23 Rate Respiratory Rate [Bilateral ] Blood Pressure 105/61 127/73 O2 Sat by Pulse 97 95 Oximetry O2 Sat by Pulse Oximetry [ Assessment] 05/07/16 05/07/16 05/07/16 00:13 01:00 02:00 Temperature Pulse Rate 97 H 102 H Pulse Rate [ Apical] Pulse Rate [ Bilateral] Pulse Rate [ From Monitor] Respiratory 23 19 19 Rate Respiratory Rate [Bilateral ] Blood Pressure 113/71 104/68 O2 Sat by Pulse 100 100 100 Oximetry O2 Sat by Pulse Oximetry [ Assessment] 05/07/16 05/07/16 05/07/16 02:01 02:11 03:00 Temperature Pulse Rate 104 H Pulse Rate [ Apical] Pulse Rate [ 106 H 103 H Bilateral] Pulse Rate [ From Monitor] Respiratory 23 Rate Respiratory 18 15 Rate [Bilateral ] Blood Pressure 103/65 O2 Sat by Pulse 100 Oximetry O2 Sat by Pulse Oximetry [ Assessment] 05/07/16 05/07/16 05/07/16 03:08 03:11 03:55 Temperature Pulse Rate 101 H 88 Pulse Rate [ Apical] Pulse Rate [ Bilateral] Pulse Rate [ From Monitor] Respiratory 22 16 Rate Respiratory Rate [Bilateral ] Blood Pressure 103/65 103/65 O2 Sat by Pulse 99 100 Oximetry O2 Sat by Pulse 98 Oximetry [ Assessment] 05/07/16 05/07/16 05/07/16 04:00 04:04 04:12 Temperature 98.2 F Pulse Rate 90 89 Pulse Rate [ Apical] Pulse Rate [ Bilateral] Pulse Rate [ From Monitor] Respiratory 11 L 12 Rate Respiratory Rate [Bilateral ] Blood Pressure 119/62 119/62 O2 Sat by Pulse 100 100 100 Oximetry O2 Sat by Pulse Oximetry [ Assessment] 05/07/16 05/07/16 05/07/16 05:00 05:13 06:00 Temperature Pulse Rate 86 87 96 H Pulse Rate [ Apical] Pulse Rate [ Bilateral] Pulse Rate [ From Monitor] Respiratory 20 21 20 Rate Respiratory Rate [Bilateral ] Blood Pressure 120/71 120/71 116/70 O2 Sat by Pulse 100 100 100 Oximetry O2 Sat by Pulse Oximetry [ Assessment] 05/07/16 05/07/16 05/07/16 07:00 07:40 07:44 Temperature 99.9 F H Pulse Rate 98 H Pulse Rate [ Apical] Pulse Rate [ Bilateral] Pulse Rate [ From Monitor] Respiratory 22 Rate Respiratory Rate [Bilateral ] Blood Pressure 117/72 O2 Sat by Pulse 100 Oximetry O2 Sat by Pulse 100 Oximetry [ Assessment] 05/07/16 05/07/16 05/07/16 07:48 07:53 07:57 Temperature Pulse Rate 100 H 99 H Pulse Rate [ Apical] Pulse Rate [ 99 H Bilateral] Pulse Rate [ From Monitor] Respiratory 32 H Rate Respiratory 30 H Rate [Bilateral ] Blood Pressure 117/72 117/72 O2 Sat by Pulse 100 100 Oximetry O2 Sat by Pulse Oximetry [ Assessment] 05/07/16 05/07/16 05/07/16 08:00 08:12 09:00 Temperature Pulse Rate 100 H 102 H Pulse Rate [ 104 H Apical] Pulse Rate [ 101 H Bilateral] Pulse Rate [ 104 H From Monitor] Respiratory 33 H 31 H Rate Respiratory 34 H Rate [Bilateral ] Blood Pressure 121/73 119/71 O2 Sat by Pulse 99 100 Oximetry O2 Sat by Pulse Oximetry [ Assessment] 05/07/16 11:11 Temperature Pulse Rate 104 H Pulse Rate [ Apical] Pulse Rate [ Bilateral] Pulse Rate [ From Monitor] Respiratory 28 H Rate Respiratory Rate [Bilateral ] Blood Pressure 128/75 O2 Sat by Pulse 99 Oximetry O2 Sat by Pulse Oximetry [ Assessment] Constitutional: no acute distress Eyes: non-icteric ENT: other (tracheotomy) Neck: supple Effort: normal Ascultation: Bilateral: clear, rhonchi (occasional) Percussion: Bilateral: not dull Cardiovascular: regular rate and rhythm Gastrointestinal: normoactive bowel sounds, soft, non-tender Extremities: no cyanosis, no edema Neurologic: other (GCS 4 on vent) CBC and BMP: 05/05/16 04:13 05/05/16 04:13 ABG, PT/INR, D-dimer: ABG POC ABG pH 7.511 (7.35-7.45) H 05/06/16 05:30 POC ABG pCO2 36.2 (35-45) 05/06/16 05:30 POC ABG pO2 92 (80-105) 05/06/16 05:30 POC ABG HCO3 28.9 05/06/16 05:30 POC ABG Total CO2 30 05/06/16 05:30 POC ABG O2 Sat 98 05/06/16 05:30 PT/INR, D-dimer PT 15.9 Sec. (12.2-14.9) H 04/23/16 10:45 INR 1.28 (0.87-1.13) H 04/23/16 10:45 Abnormal lab findings: Abnormal Labs 03/24/16 03/24/16 03/24/16 17:58 20:25 23:23 WBC RBC Hgb Hct MCV MCH MCHC RDW Plt Count Lymph % (Auto) [place] % (Auto) Lymph # [place] # Baso # Seg Neutrophils % Seg Neuts % (Manual) Lymphocytes % (Manual) Monocytes % (Manual) Seg Neutrophils # Seg Neutrophils # Man Lymphocytes # (Manual) Monocytes # (Manual) Basophils # (Manual) Percent Retic PT INR APTT Heparin Anti-Xa Level POC ABG pH POC ABG pCO2 POC ABG pO2 Sodium 169 H* Potassium 3.5 L Chloride 130.3 H Carbon Dioxide BUN 28 H Creatinine 1.8 H Glucose POC Glucose 112 H Calcium Phosphorus Iron TIBC Lactate Dehydrogenase Total Creatine Kinase NT-Pro-B Natriuret Pep Total Protein Albumin Vpwiq-7-Iskiejzpf Ixnxs-3-Uuhzerlhu Beta Globulins PEP Interpretation Cholesterol 221 H LDL Cholesterol Direct 146 H Vitamin B12 Urine WBC (Auto) Urine Creatinine Crossmatch 03/25/16 03/25/16 03/25/16 05:56 05:56 05:56 WBC 21.3 H RBC 6.32 H Hgb 16.7 H Hct 52.7 H MCV 83 L MCH 27 L MCHC RDW Plt Count Lymph % (Auto) [place] % (Auto) Lymph # [place] # Baso # Seg Neutrophils % Seg Neuts % (Manual) 91.0 H Lymphocytes % (Manual) 4.0 L Monocytes % (Manual) Seg Neutrophils # Seg Neutrophils # Man 19.4 H Lymphocytes # (Manual) 0.9 L Monocytes # (Manual) 0.9 H Basophils # (Manual) Percent Retic PT INR APTT Heparin Anti-Xa Level POC ABG pH POC ABG pCO2 POC ABG pO2 Sodium 172 H* Potassium 3.5 L Chloride 130.4 H Carbon Dioxide BUN 29 H Creatinine 1.8 H Glucose 187 H POC Glucose Calcium Phosphorus Iron TIBC Lactate Dehydrogenase 460 H Total Creatine Kinase NT-Pro-B Natriuret Pep Total Protein Albumin Mdlqx-3-Bunvvgiaa Hddtx-3-Huiqfgqxr Beta Globulins PEP Interpretation Cholesterol LDL Cholesterol Direct Vitamin B12 Urine WBC (Auto) Urine Creatinine Crossmatch 03/25/16 03/25/16 03/25/16 07:55 12:19 13:00 WBC RBC Hgb Hct MCV MCH MCHC RDW Plt Count Lymph % (Auto) [place] % (Auto) Lymph # [place] # Baso # Seg Neutrophils % Seg Neuts % (Manual) Lymphocytes % (Manual) Monocytes % (Manual) Seg Neutrophils # Seg Neutrophils # Man Lymphocytes # (Manual) Monocytes # (Manual) Basophils # (Manual) Percent Retic PT INR APTT Heparin Anti-Xa Level POC ABG pH POC ABG pCO2 POC ABG pO2 Sodium Potassium Chloride Carbon Dioxide BUN Creatinine Glucose POC Glucose 231 H 314 H Calcium Phosphorus Iron TIBC Lactate Dehydrogenase Total Creatine Kinase NT-Pro-B Natriuret Pep Total Protein Albumin 3.4 L Uujng-4-Yfciqkiox 0.4 H Yyxdh-3-Rrtzujrzn 1.1 H Beta Globulins 0.6 H PEP Interpretation see below H Cholesterol LDL Cholesterol Direct Vitamin B12 Urine WBC (Auto) Urine Creatinine Crossmatch 03/25/16 03/25/16 03/26/16 16:41 22:45 08:32 WBC RBC Hgb Hct MCV MCH MCHC RDW Plt Count Lymph % (Auto) [place] % (Auto) Lymph # [place] # Baso # Seg Neutrophils % Seg Neuts % (Manual) Lymphocytes % (Manual) Monocytes % (Manual) Seg Neutrophils # Seg Neutrophils # Man Lymphocytes # (Manual) Monocytes # (Manual) Basophils # (Manual) Percent Retic PT INR APTT Heparin Anti-Xa Level POC ABG pH POC ABG pCO2 POC ABG pO2 Sodium Potassium Chloride Carbon Dioxide BUN Creatinine Glucose POC Glucose 444 H 326 H 360 H Calcium Phosphorus Iron TIBC Lactate Dehydrogenase Total Creatine Kinase NT-Pro-B Natriuret Pep Total Protein Albumin Cvqnx-1-Qivkrkpvm Tvyux-3-Mwwrbywwu Beta Globulins PEP Interpretation Cholesterol LDL Cholesterol Direct Vitamin B12 Urine WBC (Auto) Urine Creatinine Crossmatch 03/26/16 03/26/16 03/26/16 12:38 15:33 15:47 WBC RBC Hgb Hct MCV MCH MCHC RDW Plt Count Lymph % (Auto) [place] % (Auto) Lymph # [place] # Baso # Seg Neutrophils % Seg Neuts % (Manual) Lymphocytes % (Manual) Monocytes % (Manual) Seg Neutrophils # Seg Neutrophils # Man Lymphocytes # (Manual) Monocytes # (Manual) Basophils # (Manual) Percent Retic PT INR APTT Heparin Anti-Xa Level POC ABG pH 7.511 H POC ABG pCO2 26.5 L POC ABG pO2 70 L Sodium Potassium Chloride Carbon Dioxide BUN Creatinine Glucose POC Glucose 280 H 174 H Calcium Phosphorus Iron TIBC Lactate Dehydrogenase Total Creatine Kinase NT-Pro-B Natriuret Pep Total Protein Albumin Ywnwm-7-Otxyltqmj Trood-8-Jhpcmbyof Beta Globulins PEP Interpretation Cholesterol LDL Cholesterol Direct Vitamin B12 Urine WBC (Auto) Urine Creatinine Crossmatch 03/26/16 03/26/16 03/26/16 16:47 16:47 18:51 WBC 14.0 H RBC 5.17 H Hgb Hct MCV MCH 26 L MCHC 31 L RDW Plt Count 139 L Lymph % (Auto) [place] % (Auto) Lymph # [place] # Baso # Seg Neutrophils % Seg Neuts % (Manual) Lymphocytes % (Manual) Monocytes % (Manual) Seg Neutrophils # Seg Neutrophils # Man Lymphocytes # (Manual) Monocytes # (Manual) Basophils # (Manual) Percent Retic PT INR APTT Heparin Anti-Xa Level POC ABG pH POC ABG pCO2 33.9 L POC ABG pO2 150 H Sodium 164 H* Potassium 3.4 L Chloride 128.5 H Carbon Dioxide BUN 30 H Creatinine 2.2 H Glucose 121 H POC Glucose Calcium 8.1 L Phosphorus Iron TIBC Lactate Dehydrogenase Total Creatine Kinase NT-Pro-B Natriuret Pep Total Protein Albumin Tsica-0-Ednsuewkw Isllc-3-Aigucafcc Beta Globulins PEP Interpretation Cholesterol LDL Cholesterol Direct Vitamin B12 Urine WBC (Auto) Urine Creatinine Crossmatch 03/27/16 03/27/16 03/27/16 02:19 05:47 06:02 WBC RBC Hgb Hct MCV MCH MCHC RDW Plt Count Lymph % (Auto) [place] % (Auto) Lymph # [place] # Baso # Seg Neutrophils % Seg Neuts % (Manual) Lymphocytes % (Manual) Monocytes % (Manual) Seg Neutrophils # Seg Neutrophils # Man Lymphocytes # (Manual) Monocytes # (Manual) Basophils # (Manual) Percent Retic PT INR APTT Heparin Anti-Xa Level POC ABG pH POC ABG pCO2 27.3 L 30.3 L POC ABG pO2 50 L 112 H Sodium 158 H Potassium Chloride 126.7 H Carbon Dioxide 20 L BUN 25 H Creatinine 1.7 H Glucose POC Glucose Calcium 7.0 L Phosphorus Iron TIBC Lactate Dehydrogenase Total Creatine Kinase NT-Pro-B Natriuret Pep Total Protein Albumin Nxvcy-3-Fdcfrfnvu Ibxhz-8-Akmmqirtm Beta Globulins PEP Interpretation Cholesterol LDL Cholesterol Direct Vitamin B12 Urine WBC (Auto) Urine Creatinine Crossmatch 03/27/16 03/27/16 03/27/16 07:51 09:20 11:45 WBC 14.2 H RBC Hgb Hct MCV 83 L MCH 27 L MCHC RDW Plt Count 113 L Lymph % (Auto) [place] % (Auto) Lymph # [place] # Baso # Seg Neutrophils % Seg Neuts % (Manual) Lymphocytes % (Manual) Monocytes % (Manual) Seg Neutrophils # Seg Neutrophils # Man Lymphocytes # (Manual) Monocytes # (Manual) Basophils # (Manual) Percent Retic PT INR APTT Heparin Anti-Xa Level POC ABG pH POC ABG pCO2 POC ABG pO2 Sodium Potassium Chloride Carbon Dioxide BUN Creatinine Glucose POC Glucose 124 H 241 H Calcium Phosphorus Iron TIBC Lactate Dehydrogenase Total Creatine Kinase NT-Pro-B Natriuret Pep Total Protein Albumin Vyrod-9-Fjsoaykyw Jlibm-0-Fihtlsvnx Beta Globulins PEP Interpretation Cholesterol LDL Cholesterol Direct Vitamin B12 Urine WBC (Auto) Urine Creatinine Crossmatch 03/27/16 03/27/16 03/28/16 16:39 22:03 03:29 WBC RBC Hgb Hct MCV MCH MCHC RDW Plt Count Lymph % (Auto) [place] % (Auto) Lymph # [place] # Baso # Seg Neutrophils % Seg Neuts % (Manual) Lymphocytes % (Manual) Monocytes % (Manual) Seg Neutrophils # Seg Neutrophils # Man Lymphocytes # (Manual) Monocytes # (Manual) Basophils # (Manual) Percent Retic PT INR APTT Heparin Anti-Xa Level POC ABG pH POC ABG pCO2 POC ABG pO2 Sodium Potassium Chloride Carbon Dioxide BUN Creatinine Glucose POC Glucose 266 H 167 H 241 H Calcium Phosphorus Iron TIBC Lactate Dehydrogenase Total Creatine Kinase NT-Pro-B Natriuret Pep Total Protein Albumin Kjxak-4-Auhrfyoxl Ezyur-1-Bxhstsgem Beta Globulins PEP Interpretation Cholesterol LDL Cholesterol Direct Vitamin B12 Urine WBC (Auto) Urine Creatinine Crossmatch 03/28/16 03/28/16 03/28/16 05:00 05:00 05:00 WBC RBC Hgb Hct MCV 83 L MCH 27 L MCHC RDW Plt Count 106 L Lymph % (Auto) [place] % (Auto) 10.1 H Lymph # [place] # 1.0 H Baso # Seg Neutrophils % 75.1 H Seg Neuts % (Manual) Lymphocytes % (Manual) Monocytes % (Manual) Seg Neutrophils # Seg Neutrophils # Man Lymphocytes # (Manual) Monocytes # (Manual) Basophils # (Manual) Percent Retic PT INR APTT Heparin Anti-Xa Level POC ABG pH POC ABG pCO2 POC ABG pO2 Sodium 147 H D Potassium 3.1 L D Chloride 112.3 H Carbon Dioxide 21 L BUN Creatinine Glucose 208 H POC Glucose Calcium 7.0 L Phosphorus 2.2 L Iron TIBC Lactate Dehydrogenase Total Creatine Kinase NT-Pro-B Natriuret Pep Total Protein Albumin Vjnqm-2-Hjpuktpla Nwfrr-3-Wzemtcrhl Beta Globulins PEP Interpretation Cholesterol LDL Cholesterol Direct Vitamin B12 Urine WBC (Auto) Urine Creatinine Crossmatch 03/28/16 03/28/16 03/28/16 05:14 08:41 10:56 WBC RBC Hgb Hct MCV MCH MCHC RDW Plt Count Lymph % (Auto) [place] % (Auto) Lymph # [place] # Baso # Seg Neutrophils % Seg Neuts % (Manual) Lymphocytes % (Manual) Monocytes % (Manual) Seg Neutrophils # Seg Neutrophils # Man Lymphocytes # (Manual) Monocytes # (Manual) Basophils # (Manual) Percent Retic PT INR APTT Heparin Anti-Xa Level POC ABG pH 7.457 H POC ABG pCO2 29.7 L 27.7 L POC ABG pO2 Sodium Potassium Chloride Carbon Dioxide BUN Creatinine Glucose POC Glucose 228 H Calcium Phosphorus Iron TIBC Lactate Dehydrogenase Total Creatine Kinase NT-Pro-B Natriuret Pep Total Protein Albumin Srbrl-5-Oohdbtirf Fbbdp-9-Aphzbzhum Beta Globulins PEP Interpretation Cholesterol LDL Cholesterol Direct Vitamin B12 Urine WBC (Auto) Urine Creatinine Crossmatch 03/28/16 03/28/16 03/28/16 11:37 13:29 16:22 WBC RBC Hgb Hct MCV MCH MCHC RDW Plt Count Lymph % (Auto) [place] % (Auto) Lymph # [place] # Baso # Seg Neutrophils % Seg Neuts % (Manual) Lymphocytes % (Manual) Monocytes % (Manual) Seg Neutrophils # Seg Neutrophils # Man Lymphocytes # (Manual) Monocytes # (Manual) Basophils # (Manual) Percent Retic PT INR APTT Heparin Anti-Xa Level POC ABG pH POC ABG pCO2 POC ABG pO2 Sodium Potassium Chloride Carbon Dioxide BUN Creatinine Glucose POC Glucose 226 H 200 H Calcium Phosphorus Iron TIBC Lactate Dehydrogenase Total Creatine Kinase 356 H NT-Pro-B Natriuret Pep Total Protein Albumin Lmxdf-7-Wgwkqlgyv Plhve-4-Rlvchsvyb Beta Globulins PEP Interpretation Cholesterol LDL Cholesterol Direct Vitamin B12 Urine WBC (Auto) Urine Creatinine Crossmatch 03/28/16 03/29/16 03/29/16 21:48 04:50 04:50 WBC RBC Hgb 11.5 L Hct 35.3 L MCV 81 L MCH 26 L MCHC RDW Plt Count 97 L Lymph % (Auto) [place] % (Auto) 11.7 H Lymph # [place] # 1.1 H Baso # Seg Neutrophils % Seg Neuts % (Manual) Lymphocytes % (Manual) Monocytes % (Manual) Seg Neutrophils # Seg Neutrophils # Man Lymphocytes # (Manual) Monocytes # (Manual) Basophils # (Manual) Percent Retic PT INR APTT Heparin Anti-Xa Level POC ABG pH POC ABG pCO2 POC ABG pO2 Sodium 136 L D Potassium 3.3 L Chloride Carbon Dioxide 20 L BUN Creatinine Glucose 386 H POC Glucose 188 H Calcium 6.8 L Phosphorus 1.6 L D Iron TIBC Lactate Dehydrogenase Total Creatine Kinase NT-Pro-B Natriuret Pep Total Protein Albumin Dxuqw-6-Upwgdrdph Hnhnv-3-Yjcnjxmar Beta Globulins PEP Interpretation Cholesterol LDL Cholesterol Direct Vitamin B12 Urine WBC (Auto) Urine Creatinine Crossmatch 03/29/16 03/29/16 03/29/16 08:10 11:12 16:09 WBC RBC Hgb Hct MCV MCH MCHC RDW Plt Count Lymph % (Auto) [place] % (Auto) Lymph # [place] # Baso # Seg Neutrophils % Seg Neuts % (Manual) Lymphocytes % (Manual) Monocytes % (Manual) Seg Neutrophils # Seg Neutrophils # Man Lymphocytes # (Manual) Monocytes # (Manual) Basophils # (Manual) Percent Retic PT INR APTT Heparin Anti-Xa Level POC ABG pH POC ABG pCO2 POC ABG pO2 Sodium Potassium Chloride Carbon Dioxide BUN Creatinine Glucose POC Glucose 230 H 180 H 46 L Calcium Phosphorus Iron TIBC Lactate Dehydrogenase Total Creatine Kinase NT-Pro-B Natriuret Pep Total Protein Albumin Qdujt-6-Vbamttnnr Aaesg-1-Adtfdewhz Beta Globulins PEP Interpretation Cholesterol LDL Cholesterol Direct Vitamin B12 Urine WBC (Auto) Urine Creatinine Crossmatch 03/29/16 03/29/16 03/30/16 16:12 18:15 02:53 WBC RBC Hgb Hct MCV MCH MCHC RDW Plt Count Lymph % (Auto) [place] % (Auto) Lymph # [place] # Baso # Seg Neutrophils % Seg Neuts % (Manual) Lymphocytes % (Manual) Monocytes % (Manual) Seg Neutrophils # Seg Neutrophils # Man Lymphocytes # (Manual) Monocytes # (Manual) Basophils # (Manual) Percent Retic PT INR APTT Heparin Anti-Xa Level POC ABG pH POC ABG pCO2 POC ABG pO2 Sodium Potassium Chloride Carbon Dioxide BUN Creatinine Glucose POC Glucose 52 L 118 H 130 H Calcium Phosphorus Iron TIBC Lactate Dehydrogenase Total Creatine Kinase NT-Pro-B Natriuret Pep Total Protein Albumin Dqukl-4-Snriahjwy Xfqjq-4-Vgzwmqxgh Beta Globulins PEP Interpretation Cholesterol LDL Cholesterol Direct Vitamin B12 Urine WBC (Auto) Urine Creatinine Crossmatch 03/30/16 03/30/16 03/30/16 04:00 04:00 05:29 WBC RBC Hgb Hct MCV 81 L MCH 26 L MCHC RDW Plt Count 116 L Lymph % (Auto) 10.8 L [place] % (Auto) 13.1 H Lymph # 1.0 L [place] # 1.3 H Baso # Seg Neutrophils % 74.2 H Seg Neuts % (Manual) Lymphocytes % (Manual) Monocytes % (Manual) Seg Neutrophils # Seg Neutrophils # Man Lymphocytes # (Manual) Monocytes # (Manual) Basophils # (Manual) Percent Retic PT INR APTT Heparin Anti-Xa Level POC ABG pH 7.522 H POC ABG pCO2 22.7 L POC ABG pO2 137 H Sodium 147 H D Potassium Chloride 115.5 H Carbon Dioxide 20 L BUN Creatinine Glucose 116 H POC Glucose Calcium 7.6 L Phosphorus 2.3 L D Iron TIBC Lactate Dehydrogenase Total Creatine Kinase NT-Pro-B Natriuret Pep Total Protein Albumin Cbsbr-9-Sbvxpwupj Zparf-5-Rzptnzpik Beta Globulins PEP Interpretation Cholesterol LDL Cholesterol Direct Vitamin B12 Urine WBC (Auto) Urine Creatinine Crossmatch 03/30/16 03/30/16 03/30/16 05:47 08:05 08:59 WBC RBC Hgb Hct MCV MCH MCHC RDW Plt Count Lymph % (Auto) [place] % (Auto) Lymph # [place] # Baso # Seg Neutrophils % Seg Neuts % (Manual) Lymphocytes % (Manual) Monocytes % (Manual) Seg Neutrophils # Seg Neutrophils # Man Lymphocytes # (Manual) Monocytes # (Manual) Basophils # (Manual) Percent Retic PT INR APTT Heparin Anti-Xa Level POC ABG pH POC ABG pCO2 26.2 L POC ABG pO2 115 H Sodium Potassium Chloride Carbon Dioxide BUN Creatinine Glucose POC Glucose 138 H 171 H Calcium Phosphorus Iron TIBC Lactate Dehydrogenase Total Creatine Kinase NT-Pro-B Natriuret Pep Total Protein Albumin Fupgt-2-Awwakbhlp Shtqa-7-Ooettamvu Beta Globulins PEP Interpretation Cholesterol LDL Cholesterol Direct Vitamin B12 Urine WBC (Auto) Urine Creatinine Crossmatch 03/30/16 03/30/16 03/30/16 12:11 12:11 16:39 WBC RBC Hgb Hct MCV MCH MCHC RDW Plt Count Lymph % (Auto) [place] % (Auto) Lymph # [place] # Baso # Seg Neutrophils % Seg Neuts % (Manual) Lymphocytes % (Manual) Monocytes % (Manual) Seg Neutrophils # Seg Neutrophils # Man Lymphocytes # (Manual) Monocytes # (Manual) Basophils # (Manual) Percent Retic PT INR APTT Heparin Anti-Xa Level POC ABG pH 7.476 H POC ABG pCO2 29.0 L POC ABG pO2 Sodium Potassium Chloride Carbon Dioxide BUN Creatinine Glucose POC Glucose 142 H 59 L Calcium Phosphorus Iron TIBC Lactate Dehydrogenase Total Creatine Kinase NT-Pro-B Natriuret Pep Total Protein Albumin Remze-1-Sdmjvazzp Aqcjj-6-Etkknprcx Beta Globulins PEP Interpretation Cholesterol LDL Cholesterol Direct Vitamin B12 Urine WBC (Auto) Urine Creatinine Crossmatch 03/30/16 03/30/16 03/31/16 18:41 21:59 05:02 WBC RBC Hgb Hct MCV MCH MCHC RDW Plt Count Lymph % (Auto) [place] % (Auto) Lymph # [place] # Baso # Seg Neutrophils % Seg Neuts % (Manual) Lymphocytes % (Manual) Monocytes % (Manual) Seg Neutrophils # Seg Neutrophils # Man Lymphocytes # (Manual) Monocytes # (Manual) Basophils # (Manual) Percent Retic PT INR APTT Heparin Anti-Xa Level POC ABG pH 7.519 H POC ABG pCO2 21.8 L POC ABG pO2 142 H Sodium Potassium Chloride Carbon Dioxide BUN Creatinine Glucose POC Glucose 145 H 154 H Calcium Phosphorus Iron TIBC Lactate Dehydrogenase Total Creatine Kinase NT-Pro-B Natriuret Pep Total Protein Albumin Ozyxt-6-Tekxogpjb Zjpqk-3-Adnusjqsv Beta Globulins PEP Interpretation Cholesterol LDL Cholesterol Direct Vitamin B12 Urine WBC (Auto) Urine Creatinine Crossmatch 03/31/16 03/31/16 03/31/16 05:15 05:15 05:15 WBC 13.4 H RBC 5.21 H Hgb Hct MCV 81 L MCH 26 L MCHC RDW Plt Count Lymph % (Auto) 9.5 L [place] % (Auto) 14.0 H Lymph # [place] # 1.9 H Baso # Seg Neutrophils % 75.0 H Seg Neuts % (Manual) Lymphocytes % (Manual) Monocytes % (Manual) Seg Neutrophils # 10.1 H Seg Neutrophils # Man Lymphocytes # (Manual) Monocytes # (Manual) Basophils # (Manual) Percent Retic PT INR APTT Heparin Anti-Xa Level POC ABG pH POC ABG pCO2 POC ABG pO2 Sodium Potassium Chloride 108.5 H Carbon Dioxide 19 L BUN Creatinine Glucose 188 H POC Glucose Calcium Phosphorus Iron TIBC Lactate Dehydrogenase Total Creatine Kinase NT-Pro-B Natriuret Pep 1089 H Total Protein Albumin Apgvo-7-Lnbbdhohs Ruxen-7-Dkwpzksel Beta Globulins PEP Interpretation Cholesterol LDL Cholesterol Direct Vitamin B12 Urine WBC (Auto) Urine Creatinine Crossmatch 03/31/16 03/31/16 03/31/16 07:23 11:12 15:20 WBC RBC Hgb Hct MCV MCH MCHC RDW Plt Count Lymph % (Auto) [place] % (Auto) Lymph # [place] # Baso # Seg Neutrophils % Seg Neuts % (Manual) Lymphocytes % (Manual) Monocytes % (Manual) Seg Neutrophils # Seg Neutrophils # Man Lymphocytes # (Manual) Monocytes # (Manual) Basophils # (Manual) Percent Retic PT INR APTT Heparin Anti-Xa Level POC ABG pH POC ABG pCO2 POC ABG pO2 Sodium Potassium Chloride Carbon Dioxide BUN Creatinine Glucose POC Glucose 233 H 228 H 208 H Calcium Phosphorus Iron TIBC Lactate Dehydrogenase Total Creatine Kinase NT-Pro-B Natriuret Pep Total Protein Albumin Bhdjt-3-Kymjgtkpo Hduqm-8-Ndqcvcftn Beta Globulins PEP Interpretation Cholesterol LDL Cholesterol Direct Vitamin B12 Urine WBC (Auto) Urine Creatinine Crossmatch 03/31/16 04/01/16 04/01/16 21:27 04:41 05:35 WBC 12.1 H RBC Hgb Hct MCV 81 L MCH 26 L MCHC RDW Plt Count Lymph % (Auto) 8.5 L [place] % (Auto) 14.0 H Lymph # 1.0 L [place] # 1.7 H Baso # Seg Neutrophils % 76.2 H Seg Neuts % (Manual) Lymphocytes % (Manual) Monocytes % (Manual) Seg Neutrophils # 9.2 H Seg Neutrophils # Man Lymphocytes # (Manual) Monocytes # (Manual) Basophils # (Manual) Percent Retic PT INR APTT Heparin Anti-Xa Level POC ABG pH 7.455 H POC ABG pCO2 31.0 L POC ABG pO2 Sodium Potassium Chloride Carbon Dioxide BUN Creatinine Glucose POC Glucose 162 H Calcium Phosphorus Iron TIBC Lactate Dehydrogenase Total Creatine Kinase NT-Pro-B Natriuret Pep Total Protein Albumin Voenq-9-Ebgkattsq Tzbzt-9-Crvxwbdwp Beta Globulins PEP Interpretation Cholesterol LDL Cholesterol Direct Vitamin B12 Urine WBC (Auto) Urine Creatinine Crossmatch 04/01/16 04/01/16 04/01/16 05:35 08:44 12:49 WBC RBC Hgb Hct MCV MCH MCHC RDW Plt Count Lymph % (Auto) [place] % (Auto) Lymph # [place] # Baso # Seg Neutrophils % Seg Neuts % (Manual) Lymphocytes % (Manual) Monocytes % (Manual) Seg Neutrophils # Seg Neutrophils # Man Lymphocytes # (Manual) Monocytes # (Manual) Basophils # (Manual) Percent Retic PT INR APTT Heparin Anti-Xa Level POC ABG pH POC ABG pCO2 POC ABG pO2 Sodium Potassium Chloride Carbon Dioxide BUN Creatinine Glucose 256 H POC Glucose 257 H 279 H Calcium 8.0 L Phosphorus Iron TIBC Lactate Dehydrogenase Total Creatine Kinase NT-Pro-B Natriuret Pep 1205 H Total Protein Albumin Grhsu-6-Xbuvmtrsi Fwrlu-2-Dijgpuixl Beta Globulins PEP Interpretation Cholesterol LDL Cholesterol Direct Vitamin B12 Urine WBC (Auto) Urine Creatinine Crossmatch 04/01/16 04/02/16 04/02/16 18:12 00:42 04:17 WBC RBC Hgb Hct MCV MCH MCHC RDW Plt Count Lymph % (Auto) [place] % (Auto) Lymph # [place] # Baso # Seg Neutrophils % Seg Neuts % (Manual) Lymphocytes % (Manual) Monocytes % (Manual) Seg Neutrophils # Seg Neutrophils # Man Lymphocytes # (Manual) Monocytes # (Manual) Basophils # (Manual) Percent Retic PT INR APTT Heparin Anti-Xa Level POC ABG pH 7.582 H POC ABG pCO2 26.8 L POC ABG pO2 Sodium Potassium Chloride Carbon Dioxide BUN Creatinine Glucose POC Glucose 168 H 282 H Calcium Phosphorus Iron TIBC Lactate Dehydrogenase Total Creatine Kinase NT-Pro-B Natriuret Pep Total Protein Albumin Uzszm-1-Jyyuuwcja Lapad-6-Bywffkhtc Beta Globulins PEP Interpretation Cholesterol LDL Cholesterol Direct Vitamin B12 Urine WBC (Auto) Urine Creatinine Crossmatch 04/02/16 04/02/16 04/02/16 05:00 05:00 06:27 WBC 12.4 H RBC Hgb Hct MCV 81 L MCH 26 L MCHC RDW Plt Count Lymph % (Auto) 6.4 L [place] % (Auto) 13.3 H Lymph # 0.8 L [place] # 1.7 H Baso # Seg Neutrophils % 79.4 H Seg Neuts % (Manual) Lymphocytes % (Manual) Monocytes % (Manual) Seg Neutrophils # 9.9 H Seg Neutrophils # Man Lymphocytes # (Manual) Monocytes # (Manual) Basophils # (Manual) Percent Retic PT INR APTT Heparin Anti-Xa Level POC ABG pH POC ABG pCO2 POC ABG pO2 Sodium 146 H Potassium Chloride Carbon Dioxide BUN Creatinine Glucose 334 H POC Glucose 317 H Calcium 8.0 L Phosphorus Iron TIBC Lactate Dehydrogenase Total Creatine Kinase NT-Pro-B Natriuret Pep Total Protein Albumin Hiiek-7-Ocgnyuslu Gsoiv-2-Wdkwutscr Beta Globulins PEP Interpretation Cholesterol LDL Cholesterol Direct Vitamin B12 Urine WBC (Auto) Urine Creatinine Crossmatch 04/02/16 04/02/16 04/02/16 11:51 13:10 17:24 WBC RBC Hgb Hct MCV MCH MCHC RDW Plt Count Lymph % (Auto) [place] % (Auto) Lymph # [place] # Baso # Seg Neutrophils % Seg Neuts % (Manual) Lymphocytes % (Manual) Monocytes % (Manual) Seg Neutrophils # Seg Neutrophils # Man Lymphocytes # (Manual) Monocytes # (Manual) Basophils # (Manual) Percent Retic PT INR APTT Heparin Anti-Xa Level POC ABG pH 7.518 H POC ABG pCO2 POC ABG pO2 Sodium Potassium Chloride Carbon Dioxide BUN Creatinine Glucose POC Glucose 278 H 195 H Calcium Phosphorus Iron TIBC Lactate Dehydrogenase Total Creatine Kinase NT-Pro-B Natriuret Pep Total Protein Albumin Uerwb-8-Hfjptehkr Ecmlp-6-Dpahxndni Beta Globulins PEP Interpretation Cholesterol LDL Cholesterol Direct Vitamin B12 Urine WBC (Auto) Urine Creatinine Crossmatch 04/03/16 04/03/16 04/03/16 00:18 04:10 04:10 WBC 14.3 H RBC Hgb Hct MCV 81 L MCH 26 L MCHC RDW Plt Count Lymph % (Auto) 9.0 L [place] % (Auto) 10.7 H Lymph # [place] # 1.5 H Baso # 0.2 H Seg Neutrophils % 78.5 H Seg Neuts % (Manual) Lymphocytes % (Manual) Monocytes % (Manual) Seg Neutrophils # 11.3 H Seg Neutrophils # Man Lymphocytes # (Manual) Monocytes # (Manual) Basophils # (Manual) Percent Retic PT INR APTT Heparin Anti-Xa Level POC ABG pH POC ABG pCO2 POC ABG pO2 Sodium 148 H Potassium Chloride 108.1 H Carbon Dioxide BUN 21 H Creatinine Glucose 227 H POC Glucose 144 H Calcium 8.2 L Phosphorus Iron TIBC Lactate Dehydrogenase Total Creatine Kinase NT-Pro-B Natriuret Pep Total Protein Albumin Yyzom-3-Hflpzvhoz Vqyxj-3-Rhxpuztkv Beta Globulins PEP Interpretation Cholesterol LDL Cholesterol Direct Vitamin B12 Urine WBC (Auto) Urine Creatinine Crossmatch 04/03/16 04/03/16 04/04/16 11:14 17:10 04:00 WBC 14.5 H RBC Hgb Hct MCV 81 L MCH 26 L MCHC RDW Plt Count Lymph % (Auto) 7.2 L [place] % (Auto) 7.6 H Lymph # 1.0 L [place] # 1.1 H Baso # Seg Neutrophils % 84.5 H Seg Neuts % (Manual) Lymphocytes % (Manual) Monocytes % (Manual) Seg Neutrophils # 12.3 H Seg Neutrophils # Man Lymphocytes # (Manual) Monocytes # (Manual) Basophils # (Manual) Percent Retic PT INR APTT Heparin Anti-Xa Level POC ABG pH POC ABG pCO2 POC ABG pO2 Sodium Potassium Chloride Carbon Dioxide BUN Creatinine Glucose POC Glucose 267 H 212 H Calcium Phosphorus Iron TIBC Lactate Dehydrogenase Total Creatine Kinase NT-Pro-B Natriuret Pep Total Protein Albumin Rcxta-8-Pjaepmolb Xisqr-7-Hbdjguvcd Beta Globulins PEP Interpretation Cholesterol LDL Cholesterol Direct Vitamin B12 Urine WBC (Auto) Urine Creatinine Crossmatch 04/04/16 04/04/16 04/04/16 05:00 09:55 09:55 WBC RBC Hgb 11.5 L Hct MCV MCH MCHC RDW Plt Count Lymph % (Auto) [place] % (Auto) Lymph # [place] # Baso # Seg Neutrophils % Seg Neuts % (Manual) Lymphocytes % (Manual) Monocytes % (Manual) Seg Neutrophils # Seg Neutrophils # Man Lymphocytes # (Manual) Monocytes # (Manual) Basophils # (Manual) Percent Retic PT INR APTT 42.1 H Heparin Anti-Xa Level POC ABG pH POC ABG pCO2 POC ABG pO2 Sodium 146 H Potassium Chloride Carbon Dioxide BUN 22 H Creatinine Glucose 128 H POC Glucose Calcium Phosphorus Iron TIBC Lactate Dehydrogenase Total Creatine Kinase NT-Pro-B Natriuret Pep Total Protein Albumin Jbyzq-1-Jhempxfzu Ynwth-2-Mcasschyt Beta Globulins PEP Interpretation Cholesterol LDL Cholesterol Direct Vitamin B12 Urine WBC (Auto) Urine Creatinine Crossmatch 04/04/16 04/04/16 04/04/16 11:45 17:49 17:55 WBC RBC Hgb Hct MCV MCH MCHC RDW Plt Count Lymph % (Auto) [place] % (Auto) Lymph # [place] # Baso # Seg Neutrophils % Seg Neuts % (Manual) Lymphocytes % (Manual) Monocytes % (Manual) Seg Neutrophils # Seg Neutrophils # Man Lymphocytes # (Manual) Monocytes # (Manual) Basophils # (Manual) Percent Retic PT INR APTT Heparin Anti-Xa Level 1.19 H POC ABG pH POC ABG pCO2 POC ABG pO2 Sodium Potassium Chloride Carbon Dioxide BUN Creatinine Glucose POC Glucose 231 H 186 H Calcium Phosphorus Iron TIBC Lactate Dehydrogenase Total Creatine Kinase NT-Pro-B Natriuret Pep Total Protein Albumin Jlrik-0-Ywttjvgtr Edmbq-5-Iobhawpeu Beta Globulins PEP Interpretation Cholesterol LDL Cholesterol Direct Vitamin B12 Urine WBC (Auto) Urine Creatinine Crossmatch 04/05/16 04/05/16 04/05/16 00:35 05:32 05:42 WBC RBC Hgb Hct MCV MCH MCHC RDW Plt Count Lymph % (Auto) [place] % (Auto) Lymph # [place] # Baso # Seg Neutrophils % Seg Neuts % (Manual) Lymphocytes % (Manual) Monocytes % (Manual) Seg Neutrophils # Seg Neutrophils # Man Lymphocytes # (Manual) Monocytes # (Manual) Basophils # (Manual) Percent Retic PT INR APTT Heparin Anti-Xa Level POC ABG pH 7.491 H POC ABG pCO2 POC ABG pO2 Sodium Potassium Chloride Carbon Dioxide BUN Creatinine Glucose POC Glucose 192 H 242 H Calcium Phosphorus Iron TIBC Lactate Dehydrogenase Total Creatine Kinase NT-Pro-B Natriuret Pep Total Protein Albumin Doeln-8-Imuowjbex Xnghi-3-Zgggmohpa Beta Globulins PEP Interpretation Cholesterol LDL Cholesterol Direct Vitamin B12 Urine WBC (Auto) Urine Creatinine Crossmatch 04/05/16 04/05/16 04/05/16 06:20 06:20 12:19 WBC 13.9 H RBC Hgb 11.6 L Hct MCV 81 L MCH 26 L MCHC RDW Plt Count Lymph % (Auto) 9.6 L [place] % (Auto) 8.7 H Lymph # [place] # 1.2 H Baso # Seg Neutrophils % 80.9 H Seg Neuts % (Manual) Lymphocytes % (Manual) Monocytes % (Manual) Seg Neutrophils # 11.3 H Seg Neutrophils # Man Lymphocytes # (Manual) Monocytes # (Manual) Basophils # (Manual) Percent Retic PT INR APTT Heparin Anti-Xa Level POC ABG pH POC ABG pCO2 POC ABG pO2 Sodium 148 H Potassium Chloride Carbon Dioxide BUN 23 H Creatinine Glucose 242 H POC Glucose 187 H Calcium Phosphorus Iron TIBC Lactate Dehydrogenase Total Creatine Kinase NT-Pro-B Natriuret Pep Total Protein Albumin Hphyq-8-Nybrylvll Ahdxk-6-Ectjyibbl Beta Globulins PEP Interpretation Cholesterol LDL Cholesterol Direct Vitamin B12 Urine WBC (Auto) Urine Creatinine Crossmatch 04/05/16 04/05/16 04/06/16 17:10 23:45 05:23 WBC 13.0 H RBC Hgb Hct MCV 82 L MCH 26 L MCHC 31 L RDW Plt Count Lymph % (Auto) 6.7 L [place] % (Auto) 8.3 H Lymph # 0.9 L [place] # 1.1 H Baso # Seg Neutrophils % 84.6 H Seg Neuts % (Manual) Lymphocytes % (Manual) Monocytes % (Manual) Seg Neutrophils # 11.0 H Seg Neutrophils # Man Lymphocytes # (Manual) Monocytes # (Manual) Basophils # (Manual) Percent Retic PT INR APTT Heparin Anti-Xa Level POC ABG pH POC ABG pCO2 POC ABG pO2 Sodium Potassium Chloride Carbon Dioxide BUN Creatinine Glucose POC Glucose 169 H 202 H Calcium Phosphorus Iron TIBC Lactate Dehydrogenase Total Creatine Kinase NT-Pro-B Natriuret Pep Total Protein Albumin Ddasz-4-Gnqmgmagn Becbx-7-Wrzuqxnkg Beta Globulins PEP Interpretation Cholesterol LDL Cholesterol Direct Vitamin B12 Urine WBC (Auto) Urine Creatinine Crossmatch 04/06/16 04/06/16 04/06/16 05:23 05:23 06:11 WBC RBC Hgb Hct MCV MCH MCHC RDW Plt Count Lymph % (Auto) [place] % (Auto) Lymph # [place] # Baso # Seg Neutrophils % Seg Neuts % (Manual) Lymphocytes % (Manual) Monocytes % (Manual) Seg Neutrophils # Seg Neutrophils # Man Lymphocytes # (Manual) Monocytes # (Manual) Basophils # (Manual) Percent Retic PT INR APTT Heparin Anti-Xa Level 0.21 L POC ABG pH POC ABG pCO2 POC ABG pO2 Sodium 153 H Potassium Chloride 111.3 H Carbon Dioxide BUN 22 H Creatinine Glucose 62 L POC Glucose 56 L Calcium Phosphorus Iron TIBC Lactate Dehydrogenase Total Creatine Kinase NT-Pro-B Natriuret Pep Total Protein Albumin Aiulh-0-Yyjxbnafb Mbpwy-9-Qhcyfihoa Beta Globulins PEP Interpretation Cholesterol LDL Cholesterol Direct Vitamin B12 Urine WBC (Auto) Urine Creatinine Crossmatch 04/06/16 04/06/16 04/06/16 06:52 11:36 14:58 WBC RBC Hgb Hct MCV MCH MCHC RDW Plt Count Lymph % (Auto) [place] % (Auto) Lymph # [place] # Baso # Seg Neutrophils % Seg Neuts % (Manual) Lymphocytes % (Manual) Monocytes % (Manual) Seg Neutrophils # Seg Neutrophils # Man Lymphocytes # (Manual) Monocytes # (Manual) Basophils # (Manual) Percent Retic PT INR APTT Heparin Anti-Xa Level POC ABG pH POC ABG pCO2 POC ABG pO2 Sodium Potassium Chloride Carbon Dioxide BUN Creatinine Glucose POC Glucose 206 H 139 H 147 H Calcium Phosphorus Iron TIBC Lactate Dehydrogenase Total Creatine Kinase NT-Pro-B Natriuret Pep Total Protein Albumin Gqjwt-5-Swkngdnyj Uqove-3-Qsvxhnsoz Beta Globulins PEP Interpretation Cholesterol LDL Cholesterol Direct Vitamin B12 Urine WBC (Auto) Urine Creatinine Crossmatch 04/06/16 04/06/16 04/06/16 16:03 21:18 23:53 WBC RBC Hgb Hct MCV MCH MCHC RDW Plt Count Lymph % (Auto) [place] % (Auto) Lymph # [place] # Baso # Seg Neutrophils % Seg Neuts % (Manual) Lymphocytes % (Manual) Monocytes % (Manual) Seg Neutrophils # Seg Neutrophils # Man Lymphocytes # (Manual) Monocytes # (Manual) Basophils # (Manual) Percent Retic PT INR APTT Heparin Anti-Xa Level POC ABG pH POC ABG pCO2 POC ABG pO2 Sodium Potassium Chloride Carbon Dioxide BUN Creatinine Glucose POC Glucose 154 H 293 H 301 H Calcium Phosphorus Iron TIBC Lactate Dehydrogenase Total Creatine Kinase NT-Pro-B Natriuret Pep Total Protein Albumin Ckjgz-2-Uoyhhxkrj Iuoii-7-Lhcyvbdvq Beta Globulins PEP Interpretation Cholesterol LDL Cholesterol Direct Vitamin B12 Urine WBC (Auto) Urine Creatinine Crossmatch 04/07/16 04/07/16 04/07/16 02:30 05:11 05:11 WBC 12.5 H RBC Hgb 11.5 L Hct MCV 82 L MCH 26 L MCHC 31 L RDW Plt Count Lymph % (Auto) [place] % (Auto) Lymph # [place] # Baso # Seg Neutrophils % Seg Neuts % (Manual) Lymphocytes % (Manual) Monocytes % (Manual) Seg Neutrophils # Seg Neutrophils # Man Lymphocytes # (Manual) Monocytes # (Manual) Basophils # (Manual) Percent Retic PT INR APTT Heparin Anti-Xa Level 0.11 L POC ABG pH POC ABG pCO2 POC ABG pO2 Sodium 150 H Potassium Chloride 109.5 H Carbon Dioxide BUN 28 H Creatinine Glucose 264 H POC Glucose Calcium Phosphorus Iron TIBC Lactate Dehydrogenase Total Creatine Kinase NT-Pro-B Natriuret Pep Total Protein Albumin Pvrab-5-Ulsmztdcu Akniv-0-Jyftlfbor Beta Globulins PEP Interpretation Cholesterol LDL Cholesterol Direct Vitamin B12 Urine WBC (Auto) Urine Creatinine Crossmatch 04/07/16 04/07/16 04/07/16 06:46 10:18 11:50 WBC RBC Hgb Hct MCV MCH MCHC RDW Plt Count Lymph % (Auto) [place] % (Auto) Lymph # [place] # Baso # Seg Neutrophils % Seg Neuts % (Manual) Lymphocytes % (Manual) Monocytes % (Manual) Seg Neutrophils # Seg Neutrophils # Man Lymphocytes # (Manual) Monocytes # (Manual) Basophils # (Manual) Percent Retic PT 15.1 H INR 1.20 H APTT Heparin Anti-Xa Level POC ABG pH POC ABG pCO2 POC ABG pO2 Sodium Potassium Chloride Carbon Dioxide BUN Creatinine Glucose POC Glucose 259 H 288 H Calcium Phosphorus Iron TIBC Lactate Dehydrogenase Total Creatine Kinase NT-Pro-B Natriuret Pep Total Protein Albumin Vlfvn-5-Bylgaetcu Rzcyo-6-Tejwhrszg Beta Globulins PEP Interpretation Cholesterol LDL Cholesterol Direct Vitamin B12 Urine WBC (Auto) Urine Creatinine Crossmatch 04/07/16 04/08/16 04/08/16 17:58 01:25 06:49 WBC RBC Hgb Hct MCV MCH MCHC RDW Plt Count Lymph % (Auto) [place] % (Auto) Lymph # [place] # Baso # Seg Neutrophils % Seg Neuts % (Manual) Lymphocytes % (Manual) Monocytes % (Manual) Seg Neutrophils # Seg Neutrophils # Man Lymphocytes # (Manual) Monocytes # (Manual) Basophils # (Manual) Percent Retic PT INR APTT Heparin Anti-Xa Level POC ABG pH POC ABG pCO2 POC ABG pO2 Sodium 156 H Potassium Chloride 114.7 H Carbon Dioxide BUN 33 H Creatinine Glucose 169 H POC Glucose 330 H 146 H Calcium Phosphorus Iron TIBC Lactate Dehydrogenase Total Creatine Kinase NT-Pro-B Natriuret Pep Total Protein Albumin Djadx-9-Bajaiqouu Jjosg-7-Oiphprqvg Beta Globulins PEP Interpretation Cholesterol LDL Cholesterol Direct Vitamin B12 Urine WBC (Auto) Urine Creatinine Crossmatch 04/08/16 04/08/16 04/08/16 07:34 10:28 10:28 WBC RBC Hgb Hct MCV MCH MCHC RDW Plt Count Lymph % (Auto) [place] % (Auto) Lymph # [place] # Baso # Seg Neutrophils % Seg Neuts % (Manual) Lymphocytes % (Manual) Monocytes % (Manual) Seg Neutrophils # Seg Neutrophils # Man Lymphocytes # (Manual) Monocytes # (Manual) Basophils # (Manual) Percent Retic PT 15.5 H INR 1.24 H APTT Heparin Anti-Xa Level 0.24 L POC ABG pH POC ABG pCO2 POC ABG pO2 Sodium Potassium Chloride Carbon Dioxide BUN Creatinine Glucose POC Glucose 232 H Calcium Phosphorus Iron TIBC Lactate Dehydrogenase Total Creatine Kinase NT-Pro-B Natriuret Pep Total Protein Albumin Eecbv-3-Hdvmrvagn Xqaoc-4-Yiirnfohv Beta Globulins PEP Interpretation Cholesterol LDL Cholesterol Direct Vitamin B12 Urine WBC (Auto) Urine Creatinine Crossmatch 04/08/16 04/08/16 04/09/16 11:36 15:38 00:01 WBC RBC Hgb Hct MCV MCH MCHC RDW Plt Count Lymph % (Auto) [place] % (Auto) Lymph # [place] # Baso # Seg Neutrophils % Seg Neuts % (Manual) Lymphocytes % (Manual) Monocytes % (Manual) Seg Neutrophils # Seg Neutrophils # Man Lymphocytes # (Manual) Monocytes # (Manual) Basophils # (Manual) Percent Retic PT INR APTT Heparin Anti-Xa Level POC ABG pH POC ABG pCO2 POC ABG pO2 Sodium Potassium Chloride Carbon Dioxide BUN Creatinine Glucose POC Glucose 193 H 163 H 180 H Calcium Phosphorus Iron TIBC Lactate Dehydrogenase Total Creatine Kinase NT-Pro-B Natriuret Pep Total Protein Albumin Uvist-8-Kjhdbnglj Qrwlb-3-Pdbjprxwv Beta Globulins PEP Interpretation Cholesterol LDL Cholesterol Direct Vitamin B12 Urine WBC (Auto) Urine Creatinine Crossmatch 04/09/16 04/09/16 04/09/16 06:17 06:42 06:42 WBC RBC Hgb Hct MCV MCH MCHC RDW Plt Count Lymph % (Auto) [place] % (Auto) Lymph # [place] # Baso # Seg Neutrophils % Seg Neuts % (Manual) Lymphocytes % (Manual) Monocytes % (Manual) Seg Neutrophils # Seg Neutrophils # Man Lymphocytes # (Manual) Monocytes # (Manual) Basophils # (Manual) Percent Retic PT 17.4 H INR 1.43 H APTT Heparin Anti-Xa Level POC ABG pH POC ABG pCO2 POC ABG pO2 Sodium 153 H Potassium Chloride 113.2 H Carbon Dioxide BUN 29 H Creatinine Glucose 301 H POC Glucose 249 H Calcium 8.3 L Phosphorus Iron TIBC Lactate Dehydrogenase Total Creatine Kinase NT-Pro-B Natriuret Pep Total Protein Albumin Sfydm-8-Oxnfntwvd Zwcgx-4-Jpnogsocv Beta Globulins PEP Interpretation Cholesterol LDL Cholesterol Direct Vitamin B12 Urine WBC (Auto) Urine Creatinine Crossmatch 04/09/16 04/09/1604/09/16 07:37 11:26 15:45 WBC RBC Hgb Hct MCV MCH MCHC RDW Plt Count Lymph % (Auto) [place] % (Auto) Lymph # [place] # Baso # Seg Neutrophils % Seg Neuts % (Manual) Lymphocytes % (Manual) Monocytes % (Manual) Seg Neutrophils # Seg Neutrophils # Man Lymphocytes # (Manual) Monocytes # (Manual) Basophils # (Manual) Percent Retic PT INR APTT Heparin Anti-Xa Level POC ABG pH POC ABG pCO2 POC ABG pO2 Sodium Potassium Chloride Carbon Dioxide BUN Creatinine Glucose POC Glucose 283 H 306 H 354 H Calcium Phosphorus Iron TIBC Lactate Dehydrogenase Total Creatine Kinase NT-Pro-B Natriuret Pep Total Protein Albumin Oojni-4-Jzmxqlzsi Rahvh-8-Kmvkvnkjg Beta Globulins PEP Interpretation Cholesterol LDL Cholesterol Direct Vitamin B12 Urine WBC (Auto) Urine Creatinine Crossmatch 04/10/16 04/10/16 04/10/16 00:53 07:15 07:34 WBC RBC Hgb 11.3 L Hct MCV MCH MCHC RDW Plt Count Lymph % (Auto) [place] % (Auto) Lymph # [place] # Baso # Seg Neutrophils % Seg Neuts % (Manual) Lymphocytes % (Manual) Monocytes % (Manual) Seg Neutrophils # Seg Neutrophils # Man Lymphocytes # (Manual) Monocytes # (Manual) Basophils # (Manual) Percent Retic PT INR APTT Heparin Anti-Xa Level POC ABG pH POC ABG pCO2 POC ABG pO2 Sodium Potassium Chloride Carbon Dioxide BUN Creatinine Glucose POC Glucose 323 H 311 H Calcium Phosphorus Iron TIBC Lactate Dehydrogenase Total Creatine Kinase NT-Pro-B Natriuret Pep Total Protein Albumin Cfxwy-6-Wpkuyjkqk Dmbdt-8-Iigjfovwg Beta Globulins PEP Interpretation Cholesterol LDL Cholesterol Direct Vitamin B12 Urine WBC (Auto) Urine Creatinine Crossmatch 04/10/16 04/10/16 04/10/16 07:34 07:34 11:25 WBC RBC Hgb Hct MCV MCH MCHC RDW Plt Count Lymph % (Auto) [place] % (Auto) Lymph # [place] # Baso # Seg Neutrophils % Seg Neuts % (Manual) Lymphocytes % (Manual) Monocytes % (Manual) Seg Neutrophils # Seg Neutrophils # Man Lymphocytes # (Manual) Monocytes # (Manual) Basophils # (Manual) Percent Retic PT 17.3 H INR 1.42 H APTT Heparin Anti-Xa Level POC ABG pH POC ABG pCO2 POC ABG pO2 Sodium 158 H Potassium Chloride 118.6 H Carbon Dioxide BUN 30 H Creatinine Glucose 330 H POC Glucose 335 H Calcium 8.3 L Phosphorus Iron TIBC Lactate Dehydrogenase Total Creatine Kinase NT-Pro-B Natriuret Pep Total Protein Albumin Ubcpo-2-Vvyoxvctt Olewa-4-Ylpsxdkvb Beta Globulins PEP Interpretation Cholesterol LDL Cholesterol Direct Vitamin B12 Urine WBC (Auto) Urine Creatinine Crossmatch 04/10/16 04/11/16 04/11/16 16:21 00:29 07:47 WBC RBC Hgb Hct MCV MCH MCHC RDW Plt Count Lymph % (Auto) [place] % (Auto) Lymph # [place] # Baso # Seg Neutrophils % Seg Neuts % (Manual) Lymphocytes % (Manual) Monocytes % (Manual) Seg Neutrophils # Seg Neutrophils # Man Lymphocytes # (Manual) Monocytes # (Manual) Basophils # (Manual) Percent Retic PT 18.4 H INR 1.53 H APTT Heparin Anti-Xa Level POC ABG pH POC ABG pCO2 POC ABG pO2 Sodium Potassium Chloride Carbon Dioxide BUN Creatinine Glucose POC Glucose 230 H 162 H Calcium Phosphorus Iron TIBC Lactate Dehydrogenase Total Creatine Kinase NT-Pro-B Natriuret Pep Total Protein Albumin Xgajk-7-Nquxwlfnz Wcgfs-5-Qdxqentsv Beta Globulins PEP Interpretation Cholesterol LDL Cholesterol Direct Vitamin B12 Urine WBC (Auto) Urine Creatinine Crossmatch 04/11/16 04/11/16 04/12/16 07:47 11:22 04:54 WBC RBC Hgb 11.0 L Hct 35.0 L MCV MCH MCHC RDW Plt Count Lymph % (Auto) [place] % (Auto) Lymph # [place] # Baso # Seg Neutrophils % Seg Neuts % (Manual) Lymphocytes % (Manual) Monocytes % (Manual) Seg Neutrophils # Seg Neutrophils # Man Lymphocytes # (Manual) Monocytes # (Manual) Basophils # (Manual) Percent Retic PT INR APTT Heparin Anti-Xa Level POC ABG pH POC ABG pCO2 POC ABG pO2 Sodium 155 H Potassium Chloride 114.5 H Carbon Dioxide BUN 23 H Creatinine Glucose 157 H POC Glucose 229 H Calcium Phosphorus Iron TIBC Lactate Dehydrogenase Total Creatine Kinase NT-Pro-B Natriuret Pep Total Protein Albumin Cbrzw-6-Agzlwwwwx Kfuep-0-Dfahpxgjs Beta Globulins PEP Interpretation Cholesterol LDL Cholesterol Direct Vitamin B12 Urine WBC (Auto) Urine Creatinine Crossmatch 04/12/16 04/12/16 04/12/16 04:54 04:54 05:57 WBC RBC Hgb Hct MCV MCH MCHC RDW Plt Count Lymph % (Auto) [place] % (Auto) Lymph # [place] # Baso # Seg Neutrophils % Seg Neuts % (Manual) Lymphocytes % (Manual) Monocytes % (Manual) Seg Neutrophils # Seg Neutrophils # Man Lymphocytes # (Manual) Monocytes # (Manual) Basophils # (Manual) Percent Retic PT 22.5 H INR 1.98 H APTT Heparin Anti-Xa Level 0.19 L POC ABG pH POC ABG pCO2 POC ABG pO2 Sodium 156 H Potassium Chloride 115.4 H Carbon Dioxide BUN 23 H Creatinine Glucose 143 H POC Glucose 194 H Calcium Phosphorus Iron TIBC Lactate Dehydrogenase Total Creatine Kinase NT-Pro-B Natriuret Pep Total Protein Albumin Pxzrv-9-Mbvwrokjf Cfupk-5-Eampnlnlc Beta Globulins PEP Interpretation Cholesterol LDL Cholesterol Direct Vitamin B12 Urine WBC (Auto) Urine Creatinine Crossmatch 04/12/16 04/12/16 04/12/16 12:34 19:01 23:30 WBC RBC Hgb Hct MCV MCH MCHC RDW Plt Count Lymph % (Auto) [place] % (Auto) Lymph # [place] # Baso # Seg Neutrophils % Seg Neuts % (Manual) Lymphocytes % (Manual) Monocytes % (Manual) Seg Neutrophils # Seg Neutrophils # Man Lymphocytes # (Manual) Monocytes # (Manual) Basophils # (Manual) Percent Retic PT INR APTT Heparin Anti-Xa Level POC ABG pH POC ABG pCO2 POC ABG pO2 Sodium Potassium Chloride Carbon Dioxide BUN Creatinine Glucose POC Glucose 291 H 235 H 154 H Calcium Phosphorus Iron TIBC Lactate Dehydrogenase Total Creatine Kinase NT-Pro-B Natriuret Pep Total Protein Albumin Ckocs-8-Abndlkblf Zvptg-5-Flicgrppa Beta Globulins PEP Interpretation Cholesterol LDL Cholesterol Direct Vitamin B12 Urine WBC (Auto) Urine Creatinine Crossmatch 04/13/16 04/13/16 04/13/16 05:16 05:16 05:28 WBC RBC Hgb Hct MCV MCH MCHC RDW Plt Count Lymph % (Auto) [place] % (Auto) Lymph # [place] # Baso # Seg Neutrophils % Seg Neuts % (Manual) Lymphocytes % (Manual) Monocytes % (Manual) Seg Neutrophils # Seg Neutrophils # Man Lymphocytes # (Manual) Monocytes # (Manual) Basophils # (Manual) Percent Retic PT 27.0 H INR 2.49 H APTT Heparin Anti-Xa Level 0.20 L POC ABG pH POC ABG pCO2 POC ABG pO2 Sodium 150 H Potassium Chloride 110.5 H Carbon Dioxide BUN 21 H Creatinine Glucose 159 H POC Glucose 177 H Calcium Phosphorus Iron TIBC Lactate Dehydrogenase Total Creatine Kinase NT-Pro-B Natriuret Pep Total Protein Albumin Svyzw-2-Gmfmmttbj Ovjyz-1-Xzzejrfqq Beta Globulins PEP Interpretation Cholesterol LDL Cholesterol Direct Vitamin B12 Urine WBC (Auto) Urine Creatinine Crossmatch 04/13/16 04/13/16 04/14/16 11:30 17:54 00:44 WBC RBC Hgb Hct MCV MCH MCHC RDW Plt Count Lymph % (Auto) [place] % (Auto) Lymph # [place] # Baso # Seg Neutrophils % Seg Neuts % (Manual) Lymphocytes % (Manual) Monocytes % (Manual) Seg Neutrophils # Seg Neutrophils # Man Lymphocytes # (Manual) Monocytes # (Manual) Basophils # (Manual) Percent Retic PT INR APTT Heparin Anti-Xa Level POC ABG pH POC ABG pCO2 POC ABG pO2 Sodium Potassium Chloride Carbon Dioxide BUN Creatinine Glucose POC Glucose 181 H 251 H 237 H Calcium Phosphorus Iron TIBC Lactate Dehydrogenase Total Creatine Kinase NT-Pro-B Natriuret Pep Total Protein Albumin Uoxzw-1-Nwumrtotn Mzopk-5-Kzzorotnn Beta Globulins PEP Interpretation Cholesterol LDL Cholesterol Direct Vitamin B12 Urine WBC (Auto) Urine Creatinine Crossmatch 04/14/16 04/14/16 04/14/16 05:00 05:42 05:42 WBC RBC Hgb Hct MCV MCH MCHC RDW Plt Count Lymph % (Auto) [place] % (Auto) Lymph # [place] # Baso # Seg Neutrophils % Seg Neuts % (Manual) Lymphocytes % (Manual) Monocytes % (Manual) Seg Neutrophils # Seg Neutrophils # Man Lymphocytes # (Manual) Monocytes # (Manual) Basophils # (Manual) Percent Retic PT 30.3 H INR 2.88 H APTT Heparin Anti-Xa Level 0.27 L POC ABG pH POC ABG pCO2 POC ABG pO2 Sodium Potassium 3.5 L Chloride Carbon Dioxide BUN Creatinine Glucose 160 H POC Glucose Calcium 8.2 L Phosphorus Iron TIBC Lactate Dehydrogenase Total Creatine Kinase NT-Pro-B Natriuret Pep Total Protein Albumin Xfcgo-9-Cjlpgkcbl Kotil-1-Qwvwxjajo Beta Globulins PEP Interpretation Cholesterol LDL Cholesterol Direct Vitamin B12 Urine WBC (Auto) Urine Creatinine Crossmatch 04/14/16 04/14/16 04/14/16 06:02 06:16 09:18 WBC 12.3 H RBC Hgb 11.4 L Hct MCV 82 L MCH 26 L MCHC RDW Plt Count Lymph % (Auto) Jennings % (Auto) Lymph # Jennings # Baso # Seg Neutrophils % Seg Neuts % (Manual) Lymphocytes % (Manual) Monocytes % (Manual) Seg Neutrophils # Seg Neutrophils # Man Lymphocytes # (Manual) Monocytes # (Manual) Basophils # (Manual) Percent Retic PT INR APTT Heparin Anti-Xa Level POC ABG pH POC ABG pCO2 POC ABG pO2 Sodium Potassium Chloride Carbon Dioxide BUN Creatinine Glucose POC Glucose 156 H 164 H Calcium Phosphorus Iron TIBC Lactate Dehydrogenase Total Creatine Kinase NT-Pro-B Natriuret Pep Total Protein Albumin Gxpoy-3-Ctqmagivo Dtbcp-9-Xxhgrzoip Beta Globulins PEP Interpretation Cholesterol LDL Cholesterol Direct Vitamin B12 Urine WBC (Auto) Urine Creatinine Crossmatch 04/14/16 04/15/16 04/15/16 13:58 01:07 06:04 WBC RBC Hgb Hct MCV MCH MCHC RDW Plt Count Lymph % (Auto) [place] % (Auto) Lymph # [place] # Baso # Seg Neutrophils % Seg Neuts % (Manual) Lymphocytes % (Manual) Monocytes % (Manual) Seg Neutrophils # Seg Neutrophils # Man Lymphocytes # (Manual) Monocytes # (Manual) Basophils # (Manual) Percent Retic PT 24.9 H INR 2.25 H APTT Heparin Anti-Xa Level POC ABG pH POC ABG pCO2 POC ABG pO2 Sodium Potassium Chloride Carbon Dioxide BUN Creatinine Glucose POC Glucose 109 H 154 H Calcium Phosphorus Iron TIBC Lactate Dehydrogenase Total Creatine Kinase NT-Pro-B Natriuret Pep Total Protein Albumin Lgfyv-6-Qukdlkgye Yfxrt-4-Pmzewyeye Beta Globulins PEP Interpretation Cholesterol LDL Cholesterol Direct Vitamin B12 Urine WBC (Auto) Urine Creatinine Crossmatch 04/15/16 04/15/16 04/16/16 06:08 12:41 00:38 WBC RBC Hgb Hct MCV MCH MCHC RDW Plt Count Lymph % (Auto) [place] % (Auto) Lymph # [place] # Baso # Seg Neutrophils % Seg Neuts % (Manual) Lymphocytes % (Manual) Monocytes % (Manual) Seg Neutrophils # Seg Neutrophils # Man Lymphocytes # (Manual) Monocytes # (Manual) Basophils # (Manual) Percent Retic PT INR APTT Heparin Anti-Xa Level POC ABG pH POC ABG pCO2 POC ABG pO2 Sodium Potassium Chloride Carbon Dioxide BUN Creatinine Glucose POC Glucose 165 H 223 H 216 H Calcium Phosphorus Iron TIBC Lactate Dehydrogenase Total Creatine Kinase NT-Pro-B Natriuret Pep Total Protein Albumin Qtjtp-6-Ivcdesabb Zwojm-5-Epftempyz Beta Globulins PEP Interpretation Cholesterol LDL Cholesterol Direct Vitamin B12 Urine WBC (Auto) Urine Creatinine Crossmatch 04/16/16 04/16/16 04/16/16 05:45 07:09 14:00 WBC RBC Hgb Hct MCV MCH MCHC RDW Plt Count Lymph % (Auto) [place] % (Auto) Lymph # [place] # Baso # Seg Neutrophils % Seg Neuts % (Manual) Lymphocytes % (Manual) Monocytes % (Manual) Seg Neutrophils # Seg Neutrophils # Man Lymphocytes # (Manual) Monocytes # (Manual) Basophils # (Manual) Percent Retic PT 19.4 H INR 1.64 H APTT Heparin Anti-Xa Level 0.10 L POC ABG pH POC ABG pCO2 POC ABG pO2 Sodium Potassium Chloride Carbon Dioxide BUN Creatinine Glucose POC Glucose 207 H 69 L Calcium Phosphorus Iron TIBC Lactate Dehydrogenase Total Creatine Kinase NT-Pro-B Natriuret Pep Total Protein Albumin Fjdsr-4-Resvfujqd Apnax-8-Jmfwrwuql Beta Globulins PEP Interpretation Cholesterol LDL Cholesterol Direct Vitamin B12 Urine WBC (Auto) Urine Creatinine Crossmatch 04/16/16 04/16/16 04/16/16 17:40 17:52 19:38 WBC RBC Hgb Hct MCV MCH MCHC RDW Plt Count Lymph % (Auto) [place] % (Auto) Lymph # [place] # Baso # Seg Neutrophils % Seg Neuts % (Manual) Lymphocytes % (Manual) Monocytes % (Manual) Seg Neutrophils # Seg Neutrophils # Man Lymphocytes # (Manual) Monocytes # (Manual) Basophils # (Manual) Percent Retic PT INR APTT Heparin Anti-Xa Level 0.26 L POC ABG pH 7.543 H 7.488 H POC ABG pCO2 26.3 L 30.3 L POC ABG pO2 55 L 203 H Sodium Potassium Chloride Carbon Dioxide BUN Creatinine Glucose POC Glucose Calcium Phosphorus Iron TIBC Lactate Dehydrogenase Total Creatine Kinase NT-Pro-B Natriuret Pep Total Protein Albumin Aosdo-2-Tohjvudqu Siuuz-9-Esskutjcs Beta Globulins PEP Interpretation Cholesterol LDL Cholesterol Direct Vitamin B12 Urine WBC (Auto) Urine Creatinine Crossmatch 04/17/16 04/17/16 04/17/16 00:04 05:10 05:36 WBC RBC Hgb Hct MCV MCH MCHC RDW Plt Count Lymph % (Auto) [place] % (Auto) Lymph # [place] # Baso # Seg Neutrophils % Seg Neuts % (Manual) Lymphocytes % (Manual) Monocytes % (Manual) Seg Neutrophils # Seg Neutrophils # Man Lymphocytes # (Manual) Monocytes # (Manual) Basophils # (Manual) Percent Retic PT INR APTT Heparin Anti-Xa Level POC ABG pH POC ABG pCO2 32.7 L POC ABG pO2 68 L Sodium Potassium Chloride Carbon Dioxide BUN Creatinine Glucose POC Glucose 113 H 161 H Calcium Phosphorus Iron TIBC Lactate Dehydrogenase Total Creatine Kinase NT-Pro-B Natriuret Pep Total Protein Albumin Nzhkr-1-Srbdpljce Kegdh-3-Dbsedhmjd Beta Globulins PEP Interpretation Cholesterol LDL Cholesterol Direct Vitamin B12 Urine WBC (Auto) Urine Creatinine Crossmatch 04/17/16 04/17/16 04/17/16 05:41 08:37 11:46 WBC RBC Hgb Hct MCV MCH MCHC RDW Plt Count Lymph % (Auto) [place] % (Auto) Lymph # [place] # Baso # Seg Neutrophils % Seg Neuts % (Manual) Lymphocytes % (Manual) Monocytes % (Manual) Seg Neutrophils # Seg Neutrophils # Man Lymphocytes # (Manual) Monocytes # (Manual) Basophils # (Manual) Percent Retic PT 17.4 H INR 1.43 H APTT Heparin Anti-Xa Level POC ABG pH POC ABG pCO2 POC ABG pO2 Sodium Potassium Chloride Carbon Dioxide BUN Creatinine Glucose POC Glucose 154 H 138 H Calcium Phosphorus Iron TIBC Lactate Dehydrogenase Total Creatine Kinase NT-Pro-B Natriuret Pep Total Protein Albumin Vpjwc-4-Qhfzfcjhf Oqppn-4-Gvrjvlcie Beta Globulins PEP Interpretation Cholesterol LDL Cholesterol Direct Vitamin B12 Urine WBC (Auto) Urine Creatinine Crossmatch 04/17/16 04/17/16 04/17/16 12:17 12:17 21:20 WBC 16.5 H RBC 3.31 L Hgb 8.8 L Hct 26.9 L MCV 81 L MCH 27 L MCHC RDW 15.5 H Plt Count Lymph % (Auto) [place] % (Auto) Lymph # [place] # Baso # Seg Neutrophils % Seg Neuts % (Manual) Lymphocytes % (Manual) 3.0 L Monocytes % (Manual) Seg Neutrophils # Seg Neutrophils # Man 10.1 H Lymphocytes # (Manual) 0.5 L Monocytes # (Manual) Basophils # (Manual) Percent Retic PT INR APTT Heparin Anti-Xa Level 0.14 L POC ABG pH POC ABG pCO2 POC ABG pO2 Sodium Potassium Chloride Carbon Dioxide 21 L BUN 38 H Creatinine 1.8 H D Glucose 131 H POC Glucose Calcium 7.6 L Phosphorus Iron TIBC Lactate Dehydrogenase Total Creatine Kinase NT-Pro-B Natriuret Pep Total Protein Albumin Aljkw-4-Mmtgtxesu Shpcy-5-Tdmtqiqev Beta Globulins PEP Interpretation Cholesterol LDL Cholesterol Direct Vitamin B12 Urine WBC (Auto) Urine Creatinine Crossmatch 04/17/16 04/17/16 04/18/16 23:38 23:41 00:21 WBC RBC Hgb Hct MCV MCH MCHC RDW Plt Count Lymph % (Auto) [place] % (Auto) Lymph # [place] # Baso # Seg Neutrophils % Seg Neuts % (Manual) Lymphocytes % (Manual) Monocytes % (Manual) Seg Neutrophils # Seg Neutrophils # Man Lymphocytes # (Manual) Monocytes # (Manual) Basophils # (Manual) Percent Retic PT INR APTT Heparin Anti-Xa Level POC ABG pH POC ABG pCO2 POC ABG pO2 Sodium Potassium Chloride Carbon Dioxide BUN Creatinine Glucose POC Glucose < 40 L < 40 L 223 H Calcium Phosphorus Iron TIBC Lactate Dehydrogenase Total Creatine Kinase NT-Pro-B Natriuret Pep Total Protein Albumin Pnwve-2-Ftojqkpbi Hsitn-9-Fgkhpgjbr Beta Globulins PEP Interpretation Cholesterol LDL Cholesterol Direct Vitamin B12 Urine WBC (Auto) Urine Creatinine Crossmatch 04/18/16 04/18/16 04/18/16 05:01 05:20 05:20 WBC 17.6 H RBC 3.44 L Hgb 9.1 L Hct 27.8 L MCV 81 L MCH 26 L MCHC RDW 15.5 H Plt Count Lymph % (Auto) 2.7 L [place] % (Auto) 8.3 H Lymph # 0.5 L [place] # 1.5 H Baso # Seg Neutrophils % 88.4 H Seg Neuts % (Manual) Lymphocytes % (Manual) Monocytes % (Manual) Seg Neutrophils # 15.6 H Seg Neutrophils # Man Lymphocytes # (Manual) Monocytes # (Manual) Basophils # (Manual) Percent Retic PT 17.4 H INR 1.43 H APTT Heparin Anti-Xa Level POC ABG pH 7.528 H POC ABG pCO2 27.9 L POC ABG pO2 Sodium Potassium Chloride Carbon Dioxide BUN Creatinine Glucose POC Glucose Calcium Phosphorus Iron TIBC Lactate Dehydrogenase Total Creatine Kinase NT-Pro-B Natriuret Pep Total Protein Albumin Yterq-7-Czmfvljeo Peepz-8-Vtsuxijnq Beta Globulins PEP Interpretation Cholesterol LDL Cholesterol Direct Vitamin B12 Urine WBC (Auto) Urine Creatinine Crossmatch 04/18/16 04/18/16 04/18/16 05:20 05:31 06:50 WBC RBC Hgb Hct MCV MCH MCHC RDW Plt Count Lymph % (Auto) [place] % (Auto) Lymph # [place] # Baso # Seg Neutrophils % Seg Neuts % (Manual) Lymphocytes % (Manual) Monocytes % (Manual) Seg Neutrophils # Seg Neutrophils # Man Lymphocytes # (Manual) Monocytes # (Manual) Basophils # (Manual) Percent Retic PT INR APTT Heparin Anti-Xa Level POC ABG pH POC ABG pCO2 POC ABG pO2 Sodium Potassium 3.4 L Chloride Carbon Dioxide 21 L BUN 22 H Creatinine Glucose POC Glucose 61 L 124 H Calcium 8.0 L Phosphorus Iron TIBC Lactate Dehydrogenase Total Creatine Kinase NT-Pro-B Natriuret Pep Total Protein Albumin Flkmk-4-Wtwmujapd Mccdb-3-Faoflppsv Beta Globulins PEP Interpretation Cholesterol LDL Cholesterol Direct Vitamin B12 Urine WBC (Auto) Urine Creatinine Crossmatch 04/18/16 04/18/16 04/19/16 17:42 22:40 00:31 WBC RBC Hgb Hct MCV MCH MCHC RDW Plt Count Lymph % (Auto) [place] % (Auto) Lymph # [place] # Baso # Seg Neutrophils % Seg Neuts % (Manual) Lymphocytes % (Manual) Monocytes % (Manual) Seg Neutrophils # Seg Neutrophils # Man Lymphocytes # (Manual) Monocytes # (Manual) Basophils # (Manual) Percent Retic PT INR APTT Heparin Anti-Xa Level < 0.10 L POC ABG pH POC ABG pCO2 POC ABG pO2 Sodium Potassium Chloride Carbon Dioxide BUN Creatinine Glucose POC Glucose 159 H 134 H Calcium Phosphorus Iron TIBC Lactate Dehydrogenase Total Creatine Kinase NT-Pro-B Natriuret Pep Total Protein Albumin Hblry-5-Zydtlxeby Zmvud-4-Rpkzihawu Beta Globulins PEP Interpretation Cholesterol LDL Cholesterol Direct Vitamin B12 Urine WBC (Auto) Urine Creatinine Crossmatch 04/19/16 04/19/16 04/19/16 04:18 04:18 04:25 WBC 19.0 H RBC 3.58 L Hgb 9.3 L Hct 28.8 L MCV 80 L MCH 26 L MCHC RDW 15.5 H Plt Count Lymph % (Auto) 2.8 L [place] % (Auto) 7.4 H Lymph # 0.5 L [place] # 1.4 H Baso # Seg Neutrophils % 89.4 H Seg Neuts % (Manual) Lymphocytes % (Manual) Monocytes % (Manual) Seg Neutrophils # 17.0 H Seg Neutrophils # Man Lymphocytes # (Manual) Monocytes # (Manual) Basophils # (Manual) Percent Retic PT INR APTT Heparin Anti-Xa Level POC ABG pH 7.527 H POC ABG pCO2 27.1 L POC ABG pO2 Sodium Potassium Chloride Carbon Dioxide BUN 22 H Creatinine Glucose 215 H POC Glucose Calcium 8.0 L Phosphorus Iron TIBC Lactate Dehydrogenase Total Creatine Kinase NT-Pro-B Natriuret Pep Total Protein Albumin Cjfnr-2-Ndxblrnxn Qbqbv-4-Snmztxtjf Beta Globulins PEP Interpretation Cholesterol LDL Cholesterol Direct Vitamin B12 Urine WBC (Auto) Urine Creatinine Crossmatch 04/19/16 04/19/16 04/19/16 05:45 08:10 14:08 WBC RBC Hgb Hct MCV MCH MCHC RDW Plt Count Lymph % (Auto) [place] % (Auto) Lymph # [place] # Baso # Seg Neutrophils % Seg Neuts % (Manual) Lymphocytes % (Manual) Monocytes % (Manual) Seg Neutrophils # Seg Neutrophils # Man Lymphocytes # (Manual) Monocytes # (Manual) Basophils # (Manual) Percent Retic PT 22.1 H INR 1.93 H APTT Heparin Anti-Xa Level 0.17 L POC ABG pH POC ABG pCO2 POC ABG pO2 Sodium Potassium Chloride Carbon Dioxide BUN Creatinine Glucose POC Glucose 196 H 318 H Calcium Phosphorus Iron TIBC Lactate Dehydrogenase Total Creatine Kinase NT-Pro-B Natriuret Pep Total Protein Albumin Tibte-6-Zfnwpfncy Rzxhs-8-Gryftzjuv Beta Globulins PEP Interpretation Cholesterol LDL Cholesterol Direct Vitamin B12 Urine WBC (Auto) Urine Creatinine Crossmatch 04/19/16 04/20/16 04/20/16 17:27 03:55 03:55 WBC 18.5 H RBC 3.19 L Hgb 8.4 L Hct 25.7 L MCV 80 L MCH 26 L MCHC RDW 15.9 H Plt Count Lymph % (Auto) 4.3 L [place] % (Auto) 10.1 H Lymph # 0.8 L [place] # 1.9 H Baso # Seg Neutrophils % 85.2 H Seg Neuts % (Manual) Lymphocytes % (Manual) Monocytes % (Manual) Seg Neutrophils # 15.8 H Seg Neutrophils # Man Lymphocytes # (Manual) Monocytes # (Manual) Basophils # (Manual) Percent Retic PT 22.0 H INR 1.92 H APTT Heparin Anti-Xa Level 0.14 L POC ABG pH POC ABG pCO2 POC ABG pO2 Sodium Potassium Chloride Carbon Dioxide BUN Creatinine Glucose POC Glucose 230 H Calcium Phosphorus Iron TIBC Lactate Dehydrogenase Total Creatine Kinase NT-Pro-B Natriuret Pep Total Protein Albumin Cxtul-0-Vhcywmqkk Kaudf-1-Fxzybtawd Beta Globulins PEP Interpretation Cholesterol LDL Cholesterol Direct Vitamin B12 Urine WBC (Auto) Urine Creatinine Crossmatch 04/20/16 04/20/16 04/20/16 03:55 04:16 05:52 WBC RBC Hgb Hct MCV MCH MCHC RDW Plt Count Lymph % (Auto) [place] % (Auto) Lymph # [place] # Baso # Seg Neutrophils % Seg Neuts % (Manual) Lymphocytes % (Manual) Monocytes % (Manual) Seg Neutrophils # Seg Neutrophils # Man Lymphocytes # (Manual) Monocytes # (Manual) Basophils # (Manual) Percent Retic PT INR APTT Heparin Anti-Xa Level POC ABG pH 7.474 H POC ABG pCO2 26.5 L POC ABG pO2 Sodium Potassium Chloride Carbon Dioxide 18 L BUN 38 H Creatinine 2.7 H D Glucose 159 H POC Glucose 214 H Calcium 8.0 L Phosphorus Iron TIBC Lactate Dehydrogenase Total Creatine Kinase NT-Pro-B Natriuret Pep Total Protein Albumin Yindy-0-Giodtofih Qwklh-9-Schxchmmh Beta Globulins PEP Interpretation Cholesterol LDL Cholesterol Direct Vitamin B12 Urine WBC (Auto) Urine Creatinine Crossmatch 04/20/16 04/20/16 04/20/16 10:32 11:27 11:50 WBC RBC Hgb Hct MCV MCH MCHC RDW Plt Count Lymph % (Auto) [place] % (Auto) Lymph # [place] # Baso # Seg Neutrophils % Seg Neuts % (Manual) Lymphocytes % (Manual) Monocytes % (Manual) Seg Neutrophils # Seg Neutrophils # Man Lymphocytes # (Manual) Monocytes # (Manual) Basophils # (Manual) Percent Retic PT INR APTT Heparin Anti-Xa Level POC ABG pH POC ABG pCO2 POC ABG pO2 Sodium Potassium Chloride Carbon Dioxide 20 L BUN 45 H Creatinine 3.0 H Glucose 215 H POC Glucose 248 H Calcium 8.0 L Phosphorus Iron TIBC Lactate Dehydrogenase Total Creatine Kinase NT-Pro-B Natriuret Pep Total Protein Albumin Yjafa-9-Piyljoiaz Ixuzf-1-Pqjgowtmi Beta Globulins PEP Interpretation Cholesterol LDL Cholesterol Direct Vitamin B12 Urine WBC (Auto) Urine Creatinine 85.5 H Crossmatch 04/20/16 04/21/16 04/21/16 16:59 00:13 04:29 WBC RBC Hgb Hct MCV MCH MCHC RDW Plt Count Lymph % (Auto) [place] % (Auto) Lymph # [place] # Baso # Seg Neutrophils % Seg Neuts % (Manual) Lymphocytes % (Manual) Monocytes % (Manual) Seg Neutrophils # Seg Neutrophils # Man Lymphocytes # (Manual) Monocytes # (Manual) Basophils # (Manual) Percent Retic PT 18.1 H INR 1.50 H APTT Heparin Anti-Xa Level 0.10 L POC ABG pH POC ABG pCO2 POC ABG pO2 Sodium Potassium Chloride Carbon Dioxide BUN Creatinine Glucose POC Glucose 312 H 287 H Calcium Phosphorus Iron TIBC Lactate Dehydrogenase Total Creatine Kinase NT-Pro-B Natriuret Pep Total Protein Albumin Dznax-7-Diwknaoxu Nmlmt-4-Rbarhfcgy Beta Globulins PEP Interpretation Cholesterol LDL Cholesterol Direct Vitamin B12 Urine WBC (Auto) Urine Creatinine Crossmatch 04/21/16 04/21/16 04/21/16 04:29 04:29 04:55 WBC 15.4 H RBC 3.24 L Hgb 8.4 L Hct 25.6 L MCV 79 L MCH 26 L MCHC RDW 16.1 H Plt Count Lymph % (Auto) 6.8 L [place] % (Auto) 12.9 H Lymph # 1.0 L [place] # 2.0 H Baso # Seg Neutrophils % 79.8 H Seg Neuts % (Manual) Lymphocytes % (Manual) Monocytes % (Manual) Seg Neutrophils # 12.3 H Seg Neutrophils # Man Lymphocytes # (Manual) Monocytes # (Manual) Basophils # (Manual) Percent Retic PT INR APTT Heparin Anti-Xa Level POC ABG pH 7.512 H POC ABG pCO2 25.4 L POC ABG pO2 Sodium 135 L Potassium Chloride Carbon Dioxide 18 L BUN 57 H Creatinine 3.9 H Glucose 202 H POC Glucose Calcium 8.0 L Phosphorus Iron TIBC Lactate Dehydrogenase Total Creatine Kinase NT-Pro-B Natriuret Pep Total Protein Albumin Nbzow-0-Ypbaqkztw Vcvyv-2-Aebnxfclu Beta Globulins PEP Interpretation Cholesterol LDL Cholesterol Direct Vitamin B12 Urine WBC (Auto) Urine Creatinine Crossmatch 04/21/16 04/21/16 04/21/16 05:20 12:08 12:16 WBC RBC Hgb Hct MCV MCH MCHC RDW Plt Count Lymph % (Auto) [place] % (Auto) Lymph # [place] # Baso # Seg Neutrophils % Seg Neuts % (Manual) Lymphocytes % (Manual) Monocytes % (Manual) Seg Neutrophils # Seg Neutrophils # Man Lymphocytes # (Manual) Monocytes # (Manual) Basophils # (Manual) Percent Retic PT INR APTT Heparin Anti-Xa Level 0.16 L POC ABG pH POC ABG pCO2 POC ABG pO2 Sodium Potassium Chloride Carbon Dioxide BUN Creatinine Glucose POC Glucose 203 H 221 H Calcium Phosphorus Iron TIBC Lactate Dehydrogenase Total Creatine Kinase NT-Pro-B Natriuret Pep Total Protein Albumin Rpdth-7-Okratyanl Rhgrv-9-Wqlkorjmb Beta Globulins PEP Interpretation Cholesterol LDL Cholesterol Direct Vitamin B12 Urine WBC (Auto) Urine Creatinine Crossmatch 04/21/16 04/22/16 04/22/16 17:22 05:01 05:20 WBC RBC Hgb Hct MCV MCH MCHC RDW Plt Count Lymph % (Auto) [place] % (Auto) Lymph # [place] # Baso # Seg Neutrophils % Seg Neuts % (Manual) Lymphocytes % (Manual) Monocytes % (Manual) Seg Neutrophils # Seg Neutrophils # Man Lymphocytes # (Manual) Monocytes # (Manual) Basophils # (Manual) Percent Retic PT 17.5 H INR 1.44 H APTT Heparin Anti-Xa Level POC ABG pH 7.460 H POC ABG pCO2 27.9 L POC ABG pO2 Sodium Potassium Chloride Carbon Dioxide BUN Creatinine Glucose POC Glucose 189 H Calcium Phosphorus Iron TIBC Lactate Dehydrogenase Total Creatine Kinase NT-Pro-B Natriuret Pep Total Protein Albumin Xvbvb-7-Jyareqcjo Xicui-8-Lijhyhkue Beta Globulins PEP Interpretation Cholesterol LDL Cholesterol Direct Vitamin B12 Urine WBC (Auto) Urine Creatinine Crossmatch 04/22/16 04/22/16 04/22/16 05:43 06:40 08:08 WBC RBC Hgb Hct MCV MCH MCHC RDW Plt Count Lymph % (Auto) [place] % (Auto) Lymph # [place] # Baso # Seg Neutrophils % Seg Neuts % (Manual) Lymphocytes % (Manual) Monocytes % (Manual) Seg Neutrophils # Seg Neutrophils # Man Lymphocytes # (Manual) Monocytes # (Manual) Basophils # (Manual) Percent Retic PT INR APTT Heparin Anti-Xa Level POC ABG pH POC ABG pCO2 POC ABG pO2 Sodium Potassium Chloride Carbon Dioxide BUN Creatinine Glucose POC Glucose 56 L 136 H 134 H Calcium Phosphorus Iron TIBC Lactate Dehydrogenase Total Creatine Kinase NT-Pro-B Natriuret Pep Total Protein Albumin Wmaqy-2-Dolbmshjb Asqot-2-Ogstgsaiv Beta Globulins PEP Interpretation Cholesterol LDL Cholesterol Direct Vitamin B12 Urine WBC (Auto) Urine Creatinine Crossmatch 04/22/16 04/22/16 04/22/16 11:18 12:10 18:17 WBC RBC Hgb Hct MCV MCH MCHC RDW Plt Count Lymph % (Auto) [place] % (Auto) Lymph # [place] # Baso # Seg Neutrophils % Seg Neuts % (Manual) Lymphocytes % (Manual) Monocytes % (Manual) Seg Neutrophils # Seg Neutrophils # Man Lymphocytes # (Manual) Monocytes # (Manual) Basophils # (Manual) Percent Retic PT INR APTT Heparin Anti-Xa Level 0.12 L POC ABG pH POC ABG pCO2 POC ABG pO2 Sodium Potassium Chloride Carbon Dioxide BUN Creatinine Glucose POC Glucose 142 H 227 H Calcium Phosphorus Iron TIBC Lactate Dehydrogenase Total Creatine Kinase NT-Pro-B Natriuret Pep Total Protein Albumin Gcyqp-9-Tkfnncxuw Vfdaw-7-Wxpkdozuj Beta Globulins PEP Interpretation Cholesterol LDL Cholesterol Direct Vitamin B12 Urine WBC (Auto) Urine Creatinine Crossmatch 04/22/16 04/22/16 04/23/16 22:28 23:47 04:49 WBC RBC Hgb Hct MCV MCH MCHC RDW Plt Count Lymph % (Auto) [place] % (Auto) Lymph # [place] # Baso # Seg Neutrophils % Seg Neuts % (Manual) Lymphocytes % (Manual) Monocytes % (Manual) Seg Neutrophils # Seg Neutrophils # Man Lymphocytes # (Manual) Monocytes # (Manual) Basophils # (Manual) Percent Retic PT INR APTT Heparin Anti-Xa Level 0.16 L POC ABG pH POC ABG pCO2 32.6 L POC ABG pO2 122 H Sodium Potassium Chloride Carbon Dioxide BUN Creatinine Glucose POC Glucose 266 H Calcium Phosphorus Iron TIBC Lactate Dehydrogenase Total Creatine Kinase NT-Pro-B Natriuret Pep Total Protein Albumin Hzime-6-Rgyvnsnvq Eplxq-5-Ppkefbzmb Beta Globulins PEP Interpretation Cholesterol LDL Cholesterol Direct Vitamin B12 Urine WBC (Auto) Urine Creatinine Crossmatch 04/23/16 04/23/16 04/23/16 05:41 08:05 08:34 WBC RBC Hgb Hct MCV MCH MCHC RDW Plt Count Lymph % (Auto) [place] % (Auto) Lymph # [place] # Baso # Seg Neutrophils % Seg Neuts % (Manual) Lymphocytes % (Manual) Monocytes % (Manual) Seg Neutrophils # Seg Neutrophils # Man Lymphocytes # (Manual) Monocytes # (Manual) Basophils # (Manual) Percent Retic PT INR APTT Heparin Anti-Xa Level POC ABG pH POC ABG pCO2 POC ABG pO2 Sodium Potassium Chloride 109.5 H Carbon Dioxide 21 L BUN 23 H Creatinine Glucose 227 H POC Glucose 227 H 224 H Calcium 8.2 L Phosphorus Iron TIBC Lactate Dehydrogenase Total Creatine Kinase NT-Pro-B Natriuret Pep Total Protein Albumin Mrdvb-3-Vgzmakhpx Tomhq-3-Idoyblonf Beta Globulins PEP Interpretation Cholesterol LDL Cholesterol Direct Vitamin B12 Urine WBC (Auto) Urine Creatinine Crossmatch 04/23/16 04/23/16 04/23/16 10:45 11:37 22:49 WBC RBC Hgb Hct MCV MCH MCHC RDW Plt Count Lymph % (Auto) [place] % (Auto) Lymph # [place] # Baso # Seg Neutrophils % Seg Neuts % (Manual) Lymphocytes % (Manual) Monocytes % (Manual) Seg Neutrophils # Seg Neutrophils # Man Lymphocytes # (Manual) Monocytes # (Manual) Basophils # (Manual) Percent Retic PT 15.9 H INR 1.28 H APTT Heparin Anti-Xa Level 0.12 L POC ABG pH POC ABG pCO2 POC ABG pO2 Sodium Potassium Chloride Carbon Dioxide BUN Creatinine Glucose POC Glucose 256 H Calcium Phosphorus Iron TIBC Lactate Dehydrogenase Total Creatine Kinase NT-Pro-B Natriuret Pep Total Protein Albumin Vcgtu-5-Ikqgoepqi Wpznm-9-Uxpsuluhc Beta Globulins PEP Interpretation Cholesterol LDL Cholesterol Direct Vitamin B12 Urine WBC (Auto) Urine Creatinine Crossmatch 04/23/16 04/24/16 04/24/16 23:59 05:29 06:03 WBC RBC Hgb Hct MCV MCH MCHC RDW Plt Count Lymph % (Auto) [place] % (Auto) Lymph # [place] # Baso # Seg Neutrophils % Seg Neuts % (Manual) Lymphocytes % (Manual) Monocytes % (Manual) Seg Neutrophils # Seg Neutrophils # Man Lymphocytes # (Manual) Monocytes # (Manual) Basophils # (Manual) Percent Retic PT INR APTT Heparin Anti-Xa Level POC ABG pH 7.464 H POC ABG pCO2 32.4 L POC ABG pO2 115 H Sodium Potassium Chloride Carbon Dioxide BUN Creatinine Glucose POC Glucose 176 H 256 H Calcium Phosphorus Iron TIBC Lactate Dehydrogenase Total Creatine Kinase NT-Pro-B Natriuret Pep Total Protein Albumin Rnzyg-7-Aiqhvctea [place]-4-Ifgshnvjo Beta Globulins PEP Interpretation Cholesterol LDL Cholesterol Direct Vitamin B12 Urine WBC (Auto) Urine Creatinine Crossmatch 04/24/16 04/24/16 04/24/16 07:59 12:10 17:17 WBC RBC Hgb Hct MCV MCH MCHC RDW Plt Count Lymph % (Auto) [place] % (Auto) Lymph # [place] # Baso # Seg Neutrophils % Seg Neuts % (Manual) Lymphocytes % (Manual) Monocytes % (Manual) Seg Neutrophils # Seg Neutrophils # Man Lymphocytes # (Manual) Monocytes # (Manual) Basophils # (Manual) Percent Retic PT INR APTT Heparin Anti-Xa Level 0.18 L POC ABG pH POC ABG pCO2 POC ABG pO2 Sodium Potassium Chloride Carbon Dioxide BUN Creatinine Glucose POC Glucose 304 H 325 H Calcium Phosphorus Iron TIBC Lactate Dehydrogenase Total Creatine Kinase NT-Pro-B Natriuret Pep Total Protein Albumin Ihaqx-8-Blwkghwdo Veqau-6-Rrrfvhizh Beta Globulins PEP Interpretation Cholesterol LDL Cholesterol Direct Vitamin B12 Urine WBC (Auto) Urine Creatinine Crossmatch 04/25/16 04/25/16 04/25/16 00:52 06:40 06:44 WBC RBC Hgb Hct MCV MCH MCHC RDW Plt Count Lymph % (Auto) [place] % (Auto) Lymph # [place] # Baso # Seg Neutrophils % Seg Neuts % (Manual) Lymphocytes % (Manual) Monocytes % (Manual) Seg Neutrophils # Seg Neutrophils # Man Lymphocytes # (Manual) Monocytes # (Manual) Basophils # (Manual) Percent Retic PT INR APTT Heparin Anti-Xa Level 0.11 L POC ABG pH POC ABG pCO2 POC ABG pO2 Sodium Potassium Chloride Carbon Dioxide BUN Creatinine Glucose POC Glucose 212 H 184 H Calcium Phosphorus Iron TIBC Lactate Dehydrogenase Total Creatine Kinase NT-Pro-B Natriuret Pep Total Protein Albumin Rcllh-2-Nwkkjulxe Xefub-5-Fzbpzviow Beta Globulins PEP Interpretation Cholesterol LDL Cholesterol Direct Vitamin B12 Urine WBC (Auto) Urine Creatinine Crossmatch 04/25/16 04/25/16 04/25/16 11:40 13:26 17:27 WBC RBC Hgb Hct MCV MCH MCHC RDW Plt Count Lymph % (Auto) [place] % (Auto) Lymph # Jennings # Baso # Seg Neutrophils % Seg Neuts % (Manual) Lymphocytes % (Manual) Monocytes % (Manual) Seg Neutrophils # Seg Neutrophils # Man Lymphocytes # (Manual) Monocytes # (Manual) Basophils # (Manual) Percent Retic PT INR APTT Heparin Anti-Xa Level 0.21 L POC ABG pH POC ABG pCO2 POC ABG pO2 Sodium Potassium Chloride Carbon Dioxide BUN Creatinine Glucose POC Glucose 206 H 204 H Calcium Phosphorus Iron TIBC Lactate Dehydrogenase Total Creatine Kinase NT-Pro-B Natriuret Pep Total Protein Albumin Qunxl-5-Gtldsgsuu Eukcu-3-Sbffgueyj Beta Globulins PEP Interpretation Cholesterol LDL Cholesterol Direct Vitamin B12 Urine WBC (Auto) Urine Creatinine Crossmatch 04/25/16 04/26/16 04/26/16 23:46 06:31 11:51 WBC RBC Hgb Hct MCV MCH MCHC RDW Plt Count Lymph % (Auto) [place] % (Auto) Lymph # [place] # Baso # Seg Neutrophils % Seg Neuts % (Manual) Lymphocytes % (Manual) Monocytes % (Manual) Seg Neutrophils # Seg Neutrophils # Man Lymphocytes # (Manual) Monocytes # (Manual) Basophils # (Manual) Percent Retic PT INR APTT Heparin Anti-Xa Level POC ABG pH POC ABG pCO2 POC ABG pO2 Sodium Potassium Chloride Carbon Dioxide BUN Creatinine Glucose POC Glucose 162 H 148 H 178 H Calcium Phosphorus Iron TIBC Lactate Dehydrogenase Total Creatine Kinase NT-Pro-B Natriuret Pep Total Protein Albumin Goctz-8-Ojwwmeyqn Bjktj-2-Lrnhepgek Beta Globulins PEP Interpretation Cholesterol LDL Cholesterol Direct Vitamin B12 Urine WBC (Auto) Urine Creatinine Crossmatch 04/26/16 04/26/16 04/26/16 12:17 16:16 18:14 WBC RBC Hgb Hct MCV MCH MCHC RDW Plt Count Lymph % (Auto) [place] % (Auto) Lymph # [place] # Baso # Seg Neutrophils % Seg Neuts % (Manual) Lymphocytes % (Manual) Monocytes % (Manual) Seg Neutrophils # Seg Neutrophils # Man Lymphocytes # (Manual) Monocytes # (Manual) Basophils # (Manual) Percent Retic PT INR APTT Heparin Anti-Xa Level POC ABG pH 7.513 H POC ABG pCO2 POC ABG pO2 76 L Sodium Potassium Chloride Carbon Dioxide BUN Creatinine Glucose POC Glucose 186 H 172 H Calcium Phosphorus Iron TIBC Lactate Dehydrogenase Total Creatine Kinase NT-Pro-B Natriuret Pep Total Protein Albumin Tvjlq-4-Andrfdwmb Iwybt-3-Cfzxzybof Beta Globulins PEP Interpretation Cholesterol LDL Cholesterol Direct Vitamin B12 Urine WBC (Auto) Urine Creatinine Crossmatch 04/26/16 04/26/16 04/27/16 19:27 23:28 04:21 WBC 13.1 H RBC 2.99 L Hgb 7.8 L Hct 24.0 L MCV 81 L MCH 26 L MCHC RDW 16.7 H Plt Count 486 H Lymph % (Auto) 12.5 L [place] % (Auto) 7.9 H Lymph # [place] # 1.0 H Baso # Seg Neutrophils % 77.5 H Seg Neuts % (Manual) Lymphocytes % (Manual) Monocytes % (Manual) Seg Neutrophils # 10.2 H Seg Neutrophils # Man Lymphocytes # (Manual) Monocytes # (Manual) Basophils # (Manual) Percent Retic PT INR APTT Heparin Anti-Xa Level 0.22 L POC ABG pH POC ABG pCO2 POC ABG pO2 Sodium Potassium Chloride Carbon Dioxide BUN Creatinine Glucose POC Glucose 141 H Calcium Phosphorus Iron TIBC Lactate Dehydrogenase Total Creatine Kinase NT-Pro-B Natriuret Pep Total Protein Albumin Aohoe-5-Qeszfshoi Cpjfo-8-Ckwgxcaqw Beta Globulins PEP Interpretation Cholesterol LDL Cholesterol Direct Vitamin B12 Urine WBC (Auto) Urine Creatinine Crossmatch 04/27/16 04/27/16 04/27/16 04:21 05:46 11:04 WBC RBC Hgb Hct MCV MCH MCHC RDW Plt Count Lymph % (Auto) [place] % (Auto) Lymph # [place] # Baso # Seg Neutrophils % Seg Neuts % (Manual) Lymphocytes % (Manual) Monocytes % (Manual) Seg Neutrophils # Seg Neutrophils # Man Lymphocytes # (Manual) Monocytes # (Manual) Basophils # (Manual) Percent Retic PT INR APTT Heparin Anti-Xa Level POC ABG pH 7.489 H POC ABG pCO2 POC ABG pO2 71 L Sodium Potassium Chloride Carbon Dioxide BUN Creatinine 0.6 L Glucose 187 H POC Glucose 192 H Calcium 8.0 L Phosphorus Iron TIBC Lactate Dehydrogenase Total Creatine Kinase NT-Pro-B Natriuret Pep Total Protein 6.0 L Albumin 2.0 L Kvmdo-2-Htfcqgibv Mbsqn-1-Cbcpwbtok Beta Globulins PEP Interpretation Cholesterol LDL Cholesterol Direct Vitamin B12 Urine WBC (Auto) Urine Creatinine Crossmatch 04/27/16 04/27/16 04/27/16 14:12 21:58 23:38 WBC RBC Hgb Hct MCV MCH MCHC RDW Plt Count Lymph % (Auto) [place] % (Auto) Lymph # [place] # Baso # Seg Neutrophils % Seg Neuts % (Manual) Lymphocytes % (Manual) Monocytes % (Manual) Seg Neutrophils # Seg Neutrophils # Man Lymphocytes # (Manual) Monocytes # (Manual) Basophils # (Manual) Percent Retic PT INR APTT Heparin Anti-Xa Level 0.24 L POC ABG pH POC ABG pCO2 POC ABG pO2 Sodium Potassium Chloride Carbon Dioxide BUN Creatinine Glucose POC Glucose 216 H 181 H Calcium Phosphorus Iron TIBC Lactate Dehydrogenase Total Creatine Kinase NT-Pro-B Natriuret Pep Total Protein Albumin Wknjp-9-Ooppqznlo Dtlaf-8-Qttepjgap Beta Globulins PEP Interpretation Cholesterol LDL Cholesterol Direct Vitamin B12 Urine WBC (Auto) Urine Creatinine Crossmatch 04/28/16 04/28/16 04/28/16 04:28 05:52 11:31 WBC RBC Hgb Hct MCV MCH MCHC RDW Plt Count Lymph % (Auto) [place] % (Auto) Lymph # [place] # Baso # Seg Neutrophils % Seg Neuts % (Manual) Lymphocytes % (Manual) Monocytes % (Manual) Seg Neutrophils # Seg Neutrophils # Man Lymphocytes # (Manual) Monocytes # (Manual) Basophils # (Manual) Percent Retic PT INR APTT Heparin Anti-Xa Level POC ABG pH 7.524 H POC ABG pCO2 POC ABG pO2 Sodium Potassium Chloride Carbon Dioxide BUN Creatinine Glucose POC Glucose 254 H 280 H Calcium Phosphorus Iron TIBC Lactate Dehydrogenase Total Creatine Kinase NT-Pro-B Natriuret Pep Total Protein Albumin Srbpi-5-Yyvxfrjyj Nrqdd-4-Pnwukxsra Beta Globulins PEP Interpretation Cholesterol LDL Cholesterol Direct Vitamin B12 Urine WBC (Auto) Urine Creatinine Crossmatch 04/28/16 04/28/16 04/29/16 17:30 19:52 00:47 WBC RBC Hgb Hct MCV MCH MCHC RDW Plt Count Lymph % (Auto) [place] % (Auto) Lymph # [place] # Baso # Seg Neutrophils % Seg Neuts % (Manual) Lymphocytes % (Manual) Monocytes % (Manual) Seg Neutrophils # Seg Neutrophils # Man Lymphocytes # (Manual) Monocytes # (Manual) Basophils # (Manual) Percent Retic PT INR APTT Heparin Anti-Xa Level 0.15 L POC ABG pH POC ABG pCO2 POC ABG pO2 Sodium Potassium Chloride Carbon Dioxide BUN Creatinine Glucose POC Glucose 208 H 265 H Calcium Phosphorus Iron TIBC Lactate Dehydrogenase Total Creatine Kinase NT-Pro-B Natriuret Pep Total Protein Albumin Xobyc-8-Ptunpqtou Efolj-8-Uvhdbfyfg Beta Globulins PEP Interpretation Cholesterol LDL Cholesterol Direct Vitamin B12 Urine WBC (Auto) Urine Creatinine Crossmatch 04/29/16 04/29/16 04/29/16 04:00 04:00 04:29 WBC 13.4 H RBC 2.56 L Hgb 6.9 L Hct 20.6 L MCV 81 L MCH 27 L MCHC RDW 16.2 H Plt Count 513 H Lymph % (Auto) 10.0 L [place] % (Auto) 12.0 H Lymph # [place] # 1.6 H Baso # Seg Neutrophils % 77.1 H Seg Neuts % (Manual) Lymphocytes % (Manual) Monocytes % (Manual) Seg Neutrophils # 10.4 H Seg Neutrophils # Man Lymphocytes # (Manual) Monocytes # (Manual) Basophils # (Manual) Percent Retic PT INR APTT Heparin Anti-Xa Level POC ABG pH 7.501 H POC ABG pCO2 POC ABG pO2 76 L Sodium Potassium Chloride Carbon Dioxide BUN 27 H Creatinine Glucose 204 H POC Glucose Calcium 8.1 L Phosphorus Iron TIBC Lactate Dehydrogenase Total Creatine Kinase NT-Pro-B Natriuret Pep Total Protein Albumin Kbgte-0-Vofuducac Xocft-7-Etsrjxhec Beta Globulins PEP Interpretation Cholesterol LDL Cholesterol Direct Vitamin B12 Urine WBC (Auto) Urine Creatinine Crossmatch 04/29/16 04/29/16 04/29/16 06:03 10:05 10:16 WBC RBC Hgb Hct MCV MCH MCHC RDW Plt Count Lymph % (Auto) [place] % (Auto) Lymph # [place] # Baso # Seg Neutrophils % Seg Neuts % (Manual) Lymphocytes % (Manual) Monocytes % (Manual) Seg Neutrophils # Seg Neutrophils # Man Lymphocytes # (Manual) Monocytes # (Manual) Basophils # (Manual) Percent Retic 3.68 H PT INR APTT Heparin Anti-Xa Level POC ABG pH POC ABG pCO2 POC ABG pO2 Sodium Potassium Chloride Carbon Dioxide BUN Creatinine Glucose POC Glucose 192 H Calcium Phosphorus Iron TIBC Lactate Dehydrogenase Total Creatine Kinase NT-Pro-B Natriuret Pep Total Protein Albumin Cbpts-6-Lljglvmrs Dndgb-4-Qbpdqwico Beta Globulins PEP Interpretation Cholesterol LDL Cholesterol Direct Vitamin B12 Urine WBC (Auto) Urine Creatinine Crossmatch See Detail 04/29/16 04/29/16 04/29/16 10:16 10:16 11:23 WBC RBC Hgb Hct MCV MCH MCHC RDW Plt Count Lymph % (Auto) [place] % (Auto) Lymph # [place] # Baso # Seg Neutrophils % Seg Neuts % (Manual) Lymphocytes % (Manual) Monocytes % (Manual) Seg Neutrophils # Seg Neutrophils # Man Lymphocytes # (Manual) Monocytes # (Manual) Basophils # (Manual) Percent Retic PT INR APTT Heparin Anti-Xa Level POC ABG pH POC ABG pCO2 POC ABG pO2 Sodium Potassium Chloride Carbon Dioxide BUN Creatinine Glucose POC Glucose 116 H Calcium Phosphorus Iron 10 L TIBC 138 L Lactate Dehydrogenase 204 H Total Creatine Kinase NT-Pro-B Natriuret Pep Total Protein Albumin Blcot-0-Efdcpfwyi Cbhfe-1-Dgrzexioc Beta Globulins PEP Interpretation Cholesterol LDL Cholesterol Direct Vitamin B12 1005 H Urine WBC (Auto) Urine Creatinine Crossmatch 04/29/16 04/29/16 04/30/16 17:34 23:19 03:19 WBC RBC Hgb 9.0 L Hct 26.7 L D MCV MCH MCHC RDW Plt Count Lymph % (Auto) [place] % (Auto) Lymph # [place] # Baso # Seg Neutrophils % Seg Neuts % (Manual) Lymphocytes % (Manual) Monocytes % (Manual) Seg Neutrophils # Seg Neutrophils # Man Lymphocytes # (Manual) Monocytes # (Manual) Basophils # (Manual) Percent Retic PT INR APTT Heparin Anti-Xa Level POC ABG pH POC ABG pCO2 POC ABG pO2 Sodium Potassium Chloride Carbon Dioxide BUN Creatinine Glucose POC Glucose 142 H 242 H Calcium Phosphorus Iron TIBC Lactate Dehydrogenase Total Creatine Kinase NT-Pro-B Natriuret Pep Total Protein Albumin Hqboz-9-Bnflcnzwo Rivte-8-Umpcctiaz Beta Globulins PEP Interpretation Cholesterol LDL Cholesterol Direct Vitamin B12 Urine WBC (Auto) Urine Creatinine Crossmatch 04/30/16 04/30/16 04/30/16 04:10 04:10 04:32 WBC 13.8 H RBC 3.54 L Hgb 9.3 L Hct 29.1 L MCV 82 L MCH 26 L MCHC RDW 16.5 H Plt Count 535 H Lymph % (Auto) 7.5 L [place] % (Auto) 13.8 H Lymph # 1.0 L [place] # 1.9 H Baso # Seg Neutrophils % 78.0 H Seg Neuts % (Manual) Lymphocytes % (Manual) Monocytes % (Manual) Seg Neutrophils # 10.7 H Seg Neutrophils # Man Lymphocytes # (Manual) Monocytes # (Manual) Basophils # (Manual) Percent Retic PT INR APTT Heparin Anti-Xa Level POC ABG pH 7.519 H POC ABG pCO2 33.6 L POC ABG pO2 79 L Sodium 146 H Potassium Chloride Carbon Dioxide BUN Creatinine 0.7 L Glucose 242 H POC Glucose Calcium 8.3 L Phosphorus Iron TIBC Lactate Dehydrogenase Total Creatine Kinase NT-Pro-B Natriuret Pep Total Protein Albumin Hbioz-9-Uwlermnzp Yuwpy-4-Qwnuevogr Beta Globulins PEP Interpretation Cholesterol LDL Cholesterol Direct Vitamin B12 Urine WBC (Auto) Urine Creatinine Crossmatch 04/30/16 04/30/16 04/30/16 05:33 11:23 17:26 WBC RBC Hgb Hct MCV MCH MCHC RDW Plt Count Lymph % (Auto) [place] % (Auto) Lymph # [place] # Baso # Seg Neutrophils % Seg Neuts % (Manual) Lymphocytes % (Manual) Monocytes % (Manual) Seg Neutrophils # Seg Neutrophils # Man Lymphocytes # (Manual) Monocytes # (Manual) Basophils # (Manual) Percent Retic PT INR APTT Heparin Anti-Xa Level POC ABG pH POC ABG pCO2 POC ABG pO2 Sodium Potassium Chloride Carbon Dioxide BUN Creatinine Glucose POC Glucose 242 H 305 H 281 H Calcium Phosphorus Iron TIBC Lactate Dehydrogenase Total Creatine Kinase NT-Pro-B Natriuret Pep Total Protein Albumin Naixf-2-Jelkexewd Mskef-6-Nbtlheahg Beta Globulins PEP Interpretation Cholesterol LDL Cholesterol Direct Vitamin B12 Urine WBC (Auto) Urine Creatinine Crossmatch 04/30/16 05/01/16 05/01/16 23:53 04:00 04:00 WBC 15.9 H RBC 2.99 L Hgb 7.9 L Hct 24.4 L MCV 82 L MCH 26 L MCHC RDW 16.9 H Plt Count 481 H Lymph % (Auto) 9.3 L [place] % (Auto) 15.0 H Lymph # [place] # 2.4 H Baso # Seg Neutrophils % 74.9 H Seg Neuts % (Manual) Lymphocytes % (Manual) Monocytes % (Manual) Seg Neutrophils # 11.9 H Seg Neutrophils # Man Lymphocytes # (Manual) Monocytes # (Manual) Basophils # (Manual) Percent Retic PT INR APTT Heparin Anti-Xa Level POC ABG pH POC ABG pCO2 POC ABG pO2 Sodium 147 H Potassium Chloride 107.8 H Carbon Dioxide BUN 22 H Creatinine 0.7 L Glucose 229 H POC Glucose 207 H Calcium 8.2 L Phosphorus Iron TIBC Lactate Dehydrogenase Total Creatine Kinase NT-Pro-B Natriuret Pep Total Protein Albumin Hxirp-7-Wuzfzjgfr Oaotc-2-Tsvsozpfr Beta Globulins PEP Interpretation Cholesterol LDL Cholesterol Direct Vitamin B12 Urine WBC (Auto) Urine Creatinine Crossmatch 05/01/16 05/01/16 05/01/16 05:12 07:41 12:33 WBC RBC Hgb Hct MCV MCH MCHC RDW Plt Count Lymph % (Auto) [place] % (Auto) Lymph # [place] # Baso # Seg Neutrophils % Seg Neuts % (Manual) Lymphocytes % (Manual) Monocytes % (Manual) Seg Neutrophils # Seg Neutrophils # Man Lymphocytes # (Manual) Monocytes # (Manual) Basophils # (Manual) Percent Retic PT INR APTT Heparin Anti-Xa Level 0.16 L POC ABG pH POC ABG pCO2 POC ABG pO2 Sodium Potassium Chloride Carbon Dioxide BUN Creatinine Glucose POC Glucose 284 H 186 H Calcium Phosphorus Iron TIBC Lactate Dehydrogenase Total Creatine Kinase NT-Pro-B Natriuret Pep Total Protein Albumin Jhmrw-1-Zgabkknfj Txmqf-1-Bbsbvvpgv Beta Globulins PEP Interpretation Cholesterol LDL Cholesterol Direct Vitamin B12 Urine WBC (Auto) Urine Creatinine Crossmatch 05/01/16 05/01/16 05/02/16 17:24 23:19 04:48 WBC 17.2 H RBC 3.09 L Hgb 8.1 L Hct 25.5 L MCV 83 L MCH 26 L MCHC RDW 17.3 H Plt Count 507 H Lymph % (Auto) 8.0 L [place] % (Auto) 13.6 H Lymph # [place] # 2.3 H Baso # Seg Neutrophils % 77.5 H Seg Neuts % (Manual) Lymphocytes % (Manual) Monocytes % (Manual) Seg Neutrophils # 13.4 H Seg Neutrophils # Man Lymphocytes # (Manual) Monocytes # (Manual) Basophils # (Manual) Percent Retic PT INR APTT Heparin Anti-Xa Level POC ABG pH POC ABG pCO2 POC ABG pO2 Sodium Potassium Chloride Carbon Dioxide BUN Creatinine Glucose POC Glucose 171 H 132 H Calcium Phosphorus Iron TIBC Lactate Dehydrogenase Total Creatine Kinase NT-Pro-B Natriuret Pep Total Protein Albumin Lluhb-5-Kntpqqxiq Qecfx-4-Cbgdtrztu Beta Globulins PEP Interpretation Cholesterol LDL Cholesterol Direct Vitamin B12 Urine WBC (Auto) Urine Creatinine Crossmatch 05/02/16 05/02/16 05/02/16 04:48 04:48 05:42 WBC RBC Hgb Hct MCV MCH MCHC RDW Plt Count Lymph % (Auto) [place] % (Auto) Lymph # [place] # Baso # Seg Neutrophils % Seg Neuts % (Manual) Lymphocytes % (Manual) Monocytes % (Manual) Seg Neutrophils # Seg Neutrophils # Man Lymphocytes # (Manual) Monocytes # (Manual) Basophils # (Manual) Percent Retic PT INR APTT Heparin Anti-Xa Level 0.19 L POC ABG pH POC ABG pCO2 POC ABG pO2 Sodium 149 H Potassium Chloride 109.9 H Carbon Dioxide BUN 24 H Creatinine Glucose 224 H POC Glucose 253 H Calcium 8.2 L Phosphorus Iron TIBC Lactate Dehydrogenase Total Creatine Kinase NT-Pro-B Natriuret Pep Total Protein Albumin Ycwpj-7-Wkphyaclx Qmavy-9-Sivjeepfg Beta Globulins PEP Interpretation Cholesterol LDL Cholesterol Direct Vitamin B12 Urine WBC (Auto) Urine Creatinine Crossmatch 05/02/16 05/02/16 05/02/16 12:01 16:40 23:35 WBC RBC Hgb Hct MCV MCH MCHC RDW Plt Count Lymph % (Auto) [place] % (Auto) Lymph # [place] # Baso # Seg Neutrophils % Seg Neuts % (Manual) Lymphocytes % (Manual) Monocytes % (Manual) Seg Neutrophils # Seg Neutrophils # Man Lymphocytes # (Manual) Monocytes # (Manual) Basophils # (Manual) Percent Retic PT INR APTT Heparin Anti-Xa Level POC ABG pH POC ABG pCO2 POC ABG pO2 Sodium Potassium Chloride Carbon Dioxide BUN Creatinine Glucose POC Glucose 197 H 126 H 303 H Calcium Phosphorus Iron TIBC Lactate Dehydrogenase Total Creatine Kinase NT-Pro-B Natriuret Pep Total Protein Albumin Yraqk-0-Mrxjpxrgx Uhmrb-0-Ckgzktcad Beta Globulins PEP Interpretation Cholesterol LDL Cholesterol Direct Vitamin B12 Urine WBC (Auto) Urine Creatinine Crossmatch 05/03/16 05/03/16 05/03/16 04:31 04:31 04:31 WBC 19.1 H RBC 3.15 L Hgb 8.6 L Hct 25.7 L MCV 82 L MCH MCHC RDW 17.4 H Plt Count 525 H Lymph % (Auto) [place] % (Auto) Lymph # [place] # Baso # Seg Neutrophils % Seg Neuts % (Manual) Lymphocytes % (Manual) 10.0 L Monocytes % (Manual) 13.0 H Seg Neutrophils # Seg Neutrophils # Man 13.2 H Lymphocytes # (Manual) Monocytes # (Manual) 2.5 H Basophils # (Manual) 0.2 H Percent Retic PT INR APTT Heparin Anti-Xa Level 0.16 L POC ABG pH POC ABG pCO2 POC ABG pO2 Sodium 151 H Potassium Chloride 112.9 H Carbon Dioxide BUN 24 H Creatinine 0.7 L Glucose 303 H POC Glucose Calcium Phosphorus Iron TIBC Lactate Dehydrogenase Total Creatine Kinase NT-Pro-B Natriuret Pep Total Protein Albumin Hfblu-8-Jwmxmpxth Uqmzz-1-Rxizhxzlr Beta Globulins PEP Interpretation Cholesterol LDL Cholesterol Direct Vitamin B12 Urine WBC (Auto) Urine Creatinine Crossmatch 05/03/16 05/03/16 05/04/16 12:08 18:05 00:11 WBC RBC Hgb Hct MCV MCH MCHC RDW Plt Count Lymph % (Auto) [place] % (Auto) Lymph # [place] # Baso # Seg Neutrophils % Seg Neuts % (Manual) Lymphocytes % (Manual) Monocytes % (Manual) Seg Neutrophils # Seg Neutrophils # Man Lymphocytes # (Manual) Monocytes # (Manual) Basophils # (Manual) Percent Retic PT INR APTT Heparin Anti-Xa Level POC ABG pH POC ABG pCO2 POC ABG pO2 Sodium Potassium Chloride Carbon Dioxide BUN Creatinine Glucose POC Glucose 452 H 370 H 374 H Calcium Phosphorus Iron TIBC Lactate Dehydrogenase Total Creatine Kinase NT-Pro-B Natriuret Pep Total Protein Albumin Fpcwe-4-Smsvtkemu Wkvuh-1-Httmfiewf Beta Globulins PEP Interpretation Cholesterol LDL Cholesterol Direct Vitamin B12 Urine WBC (Auto) Urine Creatinine Crossmatch 05/04/16 05/04/16 05/04/16 04:31 04:31 04:31 WBC 19.8 H RBC 2.90 L Hgb 7.8 L Hct 23.8 L MCV 82 L MCH 27 L MCHC RDW 17.9 H Plt Count 504 H Lymph % (Auto) [place] % (Auto) Lymph # [place] # Baso # Seg Neutrophils % Seg Neuts % (Manual) Lymphocytes % (Manual) 11.0 L Monocytes % (Manual) 8.0 H Seg Neutrophils # Seg Neutrophils # Man 13.3 H Lymphocytes # (Manual) Monocytes # (Manual) 1.6 H Basophils # (Manual) Percent Retic PT INR APTT Heparin Anti-Xa Level 0.15 L POC ABG pH POC ABG pCO2 POC ABG pO2 Sodium 146 H Potassium Chloride Carbon Dioxide BUN 30 H Creatinine 0.7 L Glucose 321 H POC Glucose Calcium 8.3 L Phosphorus Iron TIBC Lactate Dehydrogenase Total Creatine Kinase NT-Pro-B Natriuret Pep Total Protein Albumin Zfrxl-8-Bicxeieit Sizdb-8-Rquogryky Beta Globulins PEP Interpretation Cholesterol LDL Cholesterol Direct Vitamin B12 Urine WBC (Auto) Urine Creatinine Crossmatch 05/04/16 05/04/16 05/04/16 10:20 11:57 17:36 WBC RBC Hgb Hct MCV MCH MCHC RDW Plt Count Lymph % (Auto) [place] % (Auto) Lymph # [place] # Baso # Seg Neutrophils % Seg Neuts % (Manual) Lymphocytes % (Manual) Monocytes % (Manual) Seg Neutrophils # Seg Neutrophils # Man Lymphocytes # (Manual) Monocytes # (Manual) Basophils # (Manual) Percent Retic PT INR APTT Heparin Anti-Xa Level POC ABG pH POC ABG pCO2 POC ABG pO2 Sodium Potassium Chloride Carbon Dioxide BUN Creatinine Glucose POC Glucose 303 H 271 H Calcium Phosphorus Iron TIBC Lactate Dehydrogenase Total Creatine Kinase NT-Pro-B Natriuret Pep Total Protein Albumin Gccpk-4-Vcmzksgxy Zuocy-1-Hojcixrqn Beta Globulins PEP Interpretation Cholesterol LDL Cholesterol Direct Vitamin B12 Urine WBC (Auto) > 182.0 H Urine Creatinine Crossmatch 05/04/16 05/05/16 05/05/16 23:53 04:13 04:13 WBC 20.9 H RBC 2.92 L Hgb 7.6 L Hct 23.9 L MCV 82 L MCH 26 L MCHC RDW 17.9 H Plt Count 526 H Lymph % (Auto) [place] % (Auto) Lymph # [place] # Baso # Seg Neutrophils % Seg Neuts % (Manual) 93.0 H Lymphocytes % (Manual) 2.0 L Monocytes % (Manual) Seg Neutrophils # Seg Neutrophils # Man 19.4 H Lymphocytes # (Manual) 0.4 L Monocytes # (Manual) Basophils # (Manual) Percent Retic PT INR APTT Heparin Anti-Xa Level POC ABG pH POC ABG pCO2 POC ABG pO2 Sodium 146 H Potassium Chloride Carbon Dioxide BUN 30 H Creatinine 0.7 L Glucose 250 H POC Glucose 235 H Calcium 8.1 L Phosphorus Iron TIBC Lactate Dehydrogenase Total Creatine Kinase NT-Pro-B Natriuret Pep Total Protein Albumin Sbcnu-4-Vvpfekvxs Herqf-6-Gvayohiiq Beta Globulins PEP Interpretation Cholesterol LDL Cholesterol Direct Vitamin B12 Urine WBC (Auto) Urine Creatinine Crossmatch 05/05/16 05/05/16 05/05/16 05:27 07:36 12:06 WBC RBC Hgb Hct MCV MCH MCHC RDW Plt Count Lymph % (Auto) [place] % (Auto) Lymph # [place] # Baso # Seg Neutrophils % Seg Neuts % (Manual) Lymphocytes % (Manual) Monocytes % (Manual) Seg Neutrophils # Seg Neutrophils # Man Lymphocytes # (Manual) Monocytes # (Manual) Basophils # (Manual) Percent Retic PT INR APTT Heparin Anti-Xa Level < 0.10 L POC ABG pH POC ABG pCO2 POC ABG pO2 Sodium Potassium Chloride Carbon Dioxide BUN Creatinine Glucose POC Glucose 287 H 301 H Calcium Phosphorus Iron TIBC Lactate Dehydrogenase Total Creatine Kinase NT-Pro-B Natriuret Pep Total Protein Albumin Vkqor-6-Ehqmgsweo Lbwvo-3-Ldsgzmxht Beta Globulins PEP Interpretation Cholesterol LDL Cholesterol Direct Vitamin B12 Urine WBC (Auto) Urine Creatinine Crossmatch 05/05/16 05/05/16 05/06/16 15:58 17:30 00:10 WBC RBC Hgb Hct MCV MCH MCHC RDW Plt Count Lymph % (Auto) [place] % (Auto) Lymph # [place] # Baso # Seg Neutrophils % Seg Neuts % (Manual) Lymphocytes % (Manual) Monocytes % (Manual) Seg Neutrophils # Seg Neutrophils # Man Lymphocytes # (Manual) Monocytes # (Manual) Basophils # (Manual) Percent Retic PT INR APTT Heparin Anti-Xa Level 0.17 L POC ABG pH POC ABG pCO2 POC ABG pO2 Sodium Potassium Chloride Carbon Dioxide BUN Creatinine Glucose POC Glucose 226 H 161 H Calcium Phosphorus Iron TIBC Lactate Dehydrogenase Total Creatine Kinase NT-Pro-B Natriuret Pep Total Protein Albumin Wymti-5-Vieritcnu Exwre-4-Ytgmvokbs Beta Globulins PEP Interpretation Cholesterol LDL Cholesterol Direct Vitamin B12 Urine WBC (Auto) Urine Creatinine Crossmatch 05/06/16 05/06/16 05/06/16 04:23 05:30 05:37 WBC RBC Hgb Hct MCV MCH MCHC RDW Plt Count Lymph % (Auto) [place] % (Auto) Lymph # [place] # Baso # Seg Neutrophils % Seg Neuts % (Manual) Lymphocytes % (Manual) Monocytes % (Manual) Seg Neutrophils # Seg Neutrophils # Man Lymphocytes # (Manual) Monocytes # (Manual) Basophils # (Manual) Percent Retic PT INR APTT Heparin Anti-Xa Level 0.15 L POC ABG pH 7.511 H POC ABG pCO2 POC ABG pO2 Sodium Potassium Chloride Carbon Dioxide BUN Creatinine Glucose POC Glucose 168 H Calcium Phosphorus Iron TIBC Lactate Dehydrogenase Total Creatine Kinase NT-Pro-B Natriuret Pep Total Protein Albumin Ykwnj-9-Kixjjdwty Cterb-4-Uomitrjjn Beta Globulins PEP Interpretation Cholesterol LDL Cholesterol Direct Vitamin B12 Urine WBC (Auto) Urine Creatinine Crossmatch 05/06/16 05/06/16 05/07/16 12:48 17:22 00:04 WBC RBC Hgb Hct MCV MCH MCHC RDW Plt Count Lymph % (Auto) [place] % (Auto) Lymph # [place] # Baso # Seg Neutrophils % Seg Neuts % (Manual) Lymphocytes % (Manual) Monocytes % (Manual) Seg Neutrophils # Seg Neutrophils # Man Lymphocytes # (Manual) Monocytes # (Manual) Basophils # (Manual) Percent Retic PT INR APTT Heparin Anti-Xa Level POC ABG pH POC ABG pCO2 POC ABG pO2 Sodium Potassium Chloride Carbon Dioxide BUN Creatinine Glucose POC Glucose 206 H 160 H 164 H Calcium Phosphorus Iron TIBC Lactate Dehydrogenase Total Creatine Kinase NT-Pro-B Natriuret Pep Total Protein Albumin Icfsw-8-Fbmpeapqy Fykrz-1-Leycedvju Beta Globulins PEP Interpretation Cholesterol LDL Cholesterol Direct Vitamin B12 Urine WBC (Auto) Urine Creatinine Crossmatch 05/07/16 05/07/16 04:02 05:50 WBC RBC Hgb Hct MCV MCH MCHC RDW Plt Count Lymph % (Auto) [place] % (Auto) Lymph # [place] # Baso # Seg Neutrophils % Seg Neuts % (Manual) Lymphocytes % (Manual) Monocytes % (Manual) Seg Neutrophils # Seg Neutrophils # Man Lymphocytes # (Manual) Monocytes # (Manual) Basophils # (Manual) Percent Retic PT INR APTT Heparin Anti-Xa Level 0.15 L POC ABG pH POC ABG pCO2 POC ABG pO2 Sodium Potassium Chloride Carbon Dioxide BUN Creatinine Glucose POC Glucose 177 H Calcium Phosphorus Iron TIBC Lactate Dehydrogenase Total Creatine Kinase NT-Pro-B Natriuret Pep Total Protein Albumin Ythxt-5-Oxshymdem Bwimw-1-Tehkupfuk Beta Globulins PEP Interpretation Cholesterol LDL Cholesterol Direct Vitamin B12 Urine WBC (Auto) Urine Creatinine Crossmatch
[2016-05-07 12:57] LABS: Hematocrit 23.3 % (35.5-45.6); Hemoglobin 7.6 gm/dl (11.8-15.2); Mean Corpuscular HGB Conc 32 % (32-34); Mean Corpuscular Hemoglobin 26 pg (28-32); Mean Corpuscular Volume 81 fl (84-94); Platelet Count 559 K/mm3 (140-440); Red Blood Count 2.86 M/mm3 (3.65-5.03); Red Cell Distribution Width 17.9 % (13.2-15.2)
[2016-05-07 12:59] LABS: White Blood Count 20.8 K/mm3 (4.5-11.0)
[2016-05-07] MEDS: BABY ASPIRIN PO SCH (14:03)
[2016-05-07] MEDS: LEVEMIR SUB-Q SCH (14:03)
[2016-05-07] MEDS: PEPCID PO SCH ×2 (14:04→21:05)
[2016-05-07] MEDS: NORVASC PO SCH (14:05)
[2016-05-07] MEDS: KEPPRA PO SCH ×2 (14:13→21:05)
[2016-05-07] MEDS: CORDARONE PO SCH (14:13)
[2016-05-07] MEDS: ZESTRIL PO SCH ×2 (14:14→21:06)
--- NOTE | 2016-05-07 16:40 | Progress Note ---
Assessment and Plan Assessment and plan: 1. Acute respiratory failure. Patient reintubated on 04/17/16. Continue mechanical ventilation per pulmonary. Tracheostomy on 04/29/16. Continue CPAP trials as per pulmonary; cotn to have temp spikes; agree with d/c antibiotics that were started overnight; f/u repeat blood NGTD; f/u as per pulmonary 2. Acute CVA -right cerebellum; subacute infarct in the right cerebellar hemisphere with associated edema and mass effect as previously described. Patient also with multiple areas of acute infarct in the left occipital and frontal lobes that are most likely embolic. LIZZIE done- No thrombus but decreased flow- cotn coumadin and heparin as bridge 3. Encephalopathy. EEG normal. Etiology likely secondary to CVA +/- hypertension. supportive care 4. Accelerated hypertension- now BP controlled; cont antihypertensive medications 5. CAD-stable; contn meds 6. . Seizures-continue Keppra. EEG normal. 7. Type 2 diabetes mellitus-. Glycemic control; cotn current insulin regime. 8. History of aortic dissection status post repair. 9. Oropharyngeal dysphagia. Patient failed swallow evaluation. Status post PEG placement on 04/17. Cont PEG feeds 10. DVT prophylaxis-on heparin drip. 11. GI prophylaxis-Pepcid CCT exclusive of all other billable procedures 32 minutes History Interval history: f/u respiratory failure; hypernatremia; acute renal failure Patient seen at the bedside; vented; no family present; Hospitalist Physical - Constitutional Vitals: Temp Pulse Resp BP Pulse Ox 99.6 F 88 19 101/56 100 05/07/16 16:00 05/07/16 15:00 05/07/16 15:00 05/07/16 15:00 05/07/16 15:00 General appearance: Present: no acute distress, other (tracheostomy) - EENT Eyes: Present: PERRL, EOM intact. Absent: scleral icterus, conjunctival injection ENT: hearing intact, clear oral mucosa, no oropharyngeal erythema, no poor dentition - Neck Neck: Present: supple, normal ROM. Absent: enlarged thyroid, masses or JVD - Respiratory Respiratory effort: normal Respiratory: negative: diminished, rales, rhonchi, wheezing - Cardiovascular Rhythm: regular Heart Sounds: Present: S1 & S2. Absent: gallop - Extremities Extremities: no ischemia, pulses intact, pulses symmetrical Peripheral Pulses: within normal limits - Abdominal General gastrointestinal: soft, non-tender, non-distended - Integumentary Integumentary: Present: warm - Psychiatric Psychiatric: other (unable to assess; non verbal; eyes open spontaneosly ) - Neurologic Neurologic: other (eyes open spontaneously; non verbal ) Results - Labs CBC & Chem 7: 05/07/16 12:46 05/05/16 04:13 Labs: Laboratory Last Values WBC 20.8 K/mm3 (4.5-11.0) H 05/07/16 12:46 RBC 2.86 M/mm3 (3.65-5.03) L 05/07/16 12:46 Hgb 7.6 gm/dl (11.8-15.2) L 05/07/16 12:46 Hct 23.3 % (35.5-45.6) L 05/07/16 12:46 MCV 81 fl (84-94) L 05/07/16 12:46 MCH 26 pg (28-32) L 05/07/16 12:46 MCHC 32 % (32-34) 05/07/16 12:46 RDW 17.9 % (13.2-15.2) H 05/07/16 12:46 Plt Count 559 K/mm3 (140-440) H 05/07/16 12:46 Lymph % (Auto) 8.0 % (13.4-35.0) L 05/02/16 04:48 Payne % (Auto) 13.6 % (0.0-7.3) H 05/02/16 04:48 Eos % (Auto) 0.2 % (0.0-4.3) 05/02/16 04:48 Baso % (Auto) 0.7 % (0.0-1.8) 05/02/16 04:48 Lymph # 1.4 K/mm3 (1.2-5.4) 05/02/16 04:48 Payne # 2.3 K/mm3 (0.0-0.8) H 05/02/16 04:48 Eos # 0.0 K/mm3 (0.0-0.4) 05/02/16 04:48 Baso # 0.1 K/mm3 (0.0-0.1) 05/02/16 04:48 Add Manual Diff Complete 05/05/16 04:13 Total Counted 100 05/05/16 04:13 Seg Neutrophils % 77.5 % (40.0-70.0) H 05/02/16 04:48 Seg Neuts % (Manual) 93.0 % (40.0-70.0) H 05/05/16 04:13 Band Neutrophils % 0 % 05/05/16 04:13 Lymphocytes % (Manual) 2.0 % (13.4-35.0) L 05/05/16 04:13 Reactive Lymphs % (Man) 0 % 05/05/16 04:13 Monocytes % (Manual) 4.0 % (0.0-7.3) 05/05/16 04:13 Eosinophils % (Manual) 0 % (0.0-4.3) 05/05/16 04:13 Basophils % (Manual) 0 % (0.0-1.8) 05/05/16 04:13 Metamyelocytes % 0 % 05/05/16 04:13 Myelocytes % 1.0 % 05/05/16 04:13 Promyelocytes % 0 % 05/05/16 04:13 Blast Cells % 0 % 05/05/16 04:13 Nucleated RBC % Not Reportable 05/05/16 04:13 Seg Neutrophils # 13.4 K/mm3 (1.8-7.7) H 05/02/16 04:48 Seg Neutrophils # Man 19.4 K/mm3 (1.8-7.7) H 05/05/16 04:13 Band Neutrophils # 0.0 K/mm3 05/05/16 04:13 Lymphocytes # (Manual) 0.4 K/mm3 (1.2-5.4) L 05/05/16 04:13 Abs React Lymphs (Man) 0.0 K/mm3 05/05/16 04:13 Monocytes # (Manual) 0.8 K/mm3 (0.0-0.8) 05/05/16 04:13 Eosinophils # (Manual) 0.0 K/mm3 (0.0-0.4) 05/05/16 04:13 Basophils # (Manual) 0.0 K/mm3 (0.0-0.1) 05/05/16 04:13 Metamyelocytes # 0.0 K/mm3 05/05/16 04:13 Myelocytes # 0.2 K/mm3 05/05/16 04:13 Promyelocytes # 0.0 K/mm3 05/05/16 04:13 Blast Cells # 0.0 K/mm3 05/05/16 04:13 WBC Morphology Not Reportable 05/05/16 04:13 Hypersegmented Neuts Few 05/05/16 04:13 Hyposegmented Neuts Not Reportable 05/05/16 04:13 Hypogranular Neuts Not Reportable 05/05/16 04:13 Smudge Cells Few 05/05/16 04:13 Toxic Granulation Not Reportable 05/05/16 04:13 Toxic Vacuolation Not Reportable 05/05/16 04:13 Dohle Bodies Not Reportable 05/05/16 04:13 Pelger-Huet Anomaly Not Reportable 05/05/16 04:13 Corina Rods Not Reportable 05/05/16 04:13 Platelet Estimate Appears increased 05/05/16 04:13 Clumped Platelets Not Reportable 05/05/16 04:13 Plt Clumps, EDTA Not Reportable 05/05/16 04:13 Large Platelets Not Reportable 05/05/16 04:13 Giant Platelets Rare 05/05/16 04:13 Platelet Satelliting Not Reportable 05/05/16 04:13 Plt Morphology Comment Not Reportable 05/05/16 04:13 RBC Morphology Not Reportable 05/05/16 04:13 Dimorphic RBCs Not Reportable 05/05/16 04:13 Polychromasia Not Reportable 05/05/16 04:13 Hypochromasia 1+ 05/05/16 04:13 Poikilocytosis Not Reportable 05/05/16 04:13 Anisocytosis 1+ 05/05/16 04:13 Microcytosis Not Reportable 05/05/16 04:13 Macrocytosis Not Reportable 05/05/16 04:13 Spherocytes Not Reportable 05/05/16 04:13 Pappenheimer Bodies Not Reportable 05/05/16 04:13 Sickle Cells Not Reportable 05/05/16 04:13 Target Cells Rare 05/05/16 04:13 Tear Drop Cells Not Reportable 05/05/16 04:13 Ovalocytes Not Reportable 05/05/16 04:13 Helmet Cells Not Reportable 05/05/16 04:13 Mcgrath-Wilmore Bodies Not Reportable 05/05/16 04:13 [place] Rings Not Reportable 05/05/16 04:13 Tuan Cells Not Reportable 05/05/16 04:13 Bite Cells Not Reportable 05/05/16 04:13 Crenated Cell Not Reportable 05/05/16 04:13 Elliptocytes Not Reportable 05/05/16 04:13 Acanthocytes (Spur) Not Reportable 05/05/16 04:13 Rouleaux Not Reportable 05/05/16 04:13 Hemoglobin C Crystals Not Reportable 05/05/16 04:13 Schistocytes Not Reportable 05/05/16 04:13 Malaria parasites Not Reportable 05/05/16 04:13 Percent Retic 3.68 % (0.78-2.58) H 04/29/16 10:16 Gideon Bodies Not Reportable 05/05/16 04:13 Hem Pathologist Commnt No 05/05/16 04:13 PT 15.9 Sec. (12.2-14.9) H 04/23/16 10:45 INR 1.28 (0.87-1.13) H 04/23/16 10:45 APTT 42.1 Sec. (24.2-36.6) H 04/04/16 09:55 Heparin Anti-Xa Level 0.15 U.I./ml (0.3-0.7) L 05/07/16 04:02 POC ABG pH 7.511 (7.35-7.45) H 05/06/16 05:30 POC ABG pCO2 36.2 (35-45) 05/06/16 05:30 POC ABG pO2 92 (80-105) 05/06/16 05:30 POC ABG HCO3 28.9 05/06/16 05:30 POC ABG Total CO2 30 05/06/16 05:30 POC ABG O2 Sat 98 05/06/16 05:30 POC ABG Base Excess 6 05/06/16 05:30 VBG pH 7.418 (7.320-7.420) 03/24/16 14:00 FiO2 25 % 05/06/16 05:30 Sodium 146 mmol/L (137-145) H 05/05/16 04:13 Potassium 3.7 mmol/L (3.6-5.0) 05/05/16 04:13 Chloride 106.0 mmol/L (98-107) 05/05/16 04:13 Carbon Dioxide 27 mmol/L (22-30) 05/05/16 04:13 Anion Gap 17 mmol/L 05/05/16 04:13 BUN 30 mg/dL (9-20) H 05/05/16 04:13 Creatinine 0.7 mg/dL (0.8-1.5) L 05/05/16 04:13 Estimated GFR > 60 ml/min 05/05/16 04:13 BUN/Creatinine Ratio 42.85 % 05/05/16 04:13 Glucose 250 mg/dL (75-100) H 05/05/16 04:13 POC Glucose 240 (70-105) H 05/07/16 11:30 Hemoglobin A1c 9.6 % (4-6) H 03/24/16 14:00 Lactic Acid 1.6 mmol/L (0.7-2.0) 04/17/16 12:17 Calcium 8.1 mg/dL (8.4-10.2) L 05/05/16 04:13 Phosphorus 2.3 mg/dL (2.5-4.5) L D 03/30/16 04:00 Magnesium 1.9 mg/dL (1.7-2.3) 03/30/16 04:00 Iron 10 ug/dL (49-181) L 04/29/16 10:16 TIBC 138 mcg/dL (250-450) L 04/29/16 10:16 Ferritin 336.4 ng/mL (13.0-400.0) 04/29/16 10:16 Total Bilirubin < 0.2 mg/dL (0.1-1.2) 04/27/16 04:21 AST 18 units/L (5-40) 04/27/16 04:21 ALT 39 units/L (7-56) 04/27/16 04:21 Alkaline Phosphatase 103 units/L (35-129) 04/27/16 04:21 Lactate Dehydrogenase 204 units/L (91-180) H 04/29/16 10:16 Total Creatine Kinase 356 units/L (55-170) H 03/28/16 13:29 Troponin T < 0.010 ng/mL (0.00-0.029) 03/28/16 13:29 NT-Pro-B Natriuret Pep 897.9 pg/mL (0-900) 04/03/16 04:10 Serum Total Protein 7.1 g/dL (6.1-8.1) 03/25/16 13:00 Total Protein 6.0 g/dL (6.3-8.2) L 04/27/16 04:21 Albumin 2.0 g/dL (3.9-5) L 04/27/16 04:21 Albumin/Globulin Ratio 0.5 % 04/27/16 04:21 Smpaq-1-Akuscizib See scanned report 03/31/16 12:20 Dwmbm-1-Tfwsallhk See scanned report 03/31/16 12:20 Beta Globulins See scanned report 03/31/16 12:20 Azqc-6-Irbuzrtlpvazx 2.46 mg/L (<=2.51) 03/25/16 13:00 Gamma Globulins See scanned report 03/31/16 12:20 Abnorm Protein Band 1 see below (()) 03/25/16 13:00 PEP Interpretation See scanned report 03/31/16 12:20 Triglycerides 88 mg/dL (2-149) 03/24/16 17:58 Cholesterol 221 mg/dL (50-199) H 03/24/16 17:58 LDL Cholesterol Direct 146 mg/dL (50-130) H 03/24/16 17:58 HDL Cholesterol 58 mg/dL (40-59) 03/24/16 17:58 Cholesterol/HDL Ratio 3.81 % 03/24/16 17:58 Vitamin B12 1005 pg/mL (211-911) H 04/29/16 10:16 Folate 12.78 ng/mL (7.3-26.0) 04/29/16 10:16 Urine Color Yellow (Yellow) 05/04/16 10:20 Urine Turbidity Cloudy (Clear) 05/04/16 10:20 Urine pH 5.0 (5.0-7.0) 05/04/16 10:20 Ur Specific [place] 1.017 (1.003-1.030) 05/04/16 10:20 Urine Protein 100 mg/dl mg/dL (Negative) 05/04/16 10:20 Urine Glucose (UA) >=500 mg/dL (Negative) 05/04/16 10:20 Urine Ketones Neg mg/dL (Negative) 05/04/16 10:20 Urine Blood Sm (Negative) 05/04/16 10:20 Urine Nitrite Neg (Negative) 05/04/16 10:20 Urine Bilirubin Neg (Negative) 05/04/16 10:20 Urine Urobilinogen 2.0 mg/dL (<2.0) 05/04/16 10:20 Ur Leukocyte Esterase Lg (Negative) 05/04/16 10:20 Urine WBC (Auto) > 182.0 /HPF (0.0-6.0) H 05/04/16 10:20 Urine RBC (Auto) 13.0 /HPF (0.0-6.0) 05/04/16 10:20 U Epithel Cells (Auto) < 1.0 /HPF (0-13.0) 05/04/16 10:20 Urine Bacteria (Auto) 1+ /HPF (Negative) 05/04/16 10:20 Urine WBC Clumps 3+ /HPF 05/04/16 10:20 Hyaline Casts 1 /LPF 03/24/16 14:27 Urine Mucus Few /HPF 05/04/16 10:20 Urine Yeast (Budding) 1+ /HPF 05/04/16 10:20 Ur Random Creatinine See scanned report 03/31/16 12:20 U Random Total Protein See scanned report 03/31/16 12:20 Urine Creatinine 85.5 mg/dL (0.1-20.0) H 04/20/16 11:50 Protein/Creatinin Ratio See scanned report 03/31/16 12:20 Urine Sodium 17 mEq/L 04/20/16 11:50 U Abnormal Prot Band 1 See scanned report 03/31/16 12:20 U Abnormal Prot Band 2 See scanned report 03/31/16 12:20 U Abnormal Prot Band 3 See scanned report 03/31/16 12:20 Ketones 1.0 mg/dL (0.2-2.8) 03/24/16 14:00 Blood Type A POSITIVE 04/29/16 10:05 Antibody Screen Negative 04/29/16 10:05 Crossmatch See Detail 04/29/16 10:05
[2016-05-07] MEDS: TYLENOL PO PRN (20:30)
[2016-05-08] MEDS: TYLENOL PO PRN ×4 (00:07→19:44)
[2016-05-08] MEDS: NOVOLOG SUB-Q SCH ×4 (00:07→18:17)
[2016-05-08] MEDS: DUONEB 0.5 MG-3 MG/3 ML SOLN IH SCH ×4 (01:10→20:45)
[2016-05-08] MEDS: NORMODYNE PO SCH ×3 (07:59→19:43)
[2016-05-08] MEDS: LEVEMIR SUB-Q SCH (09:49)
[2016-05-08] MEDS: CORDARONE PO SCH (09:50)
[2016-05-08] MEDS: PEPCID PO SCH ×2 (09:50→22:26)
[2016-05-08] MEDS: BABY ASPIRIN PO SCH (09:50)
[2016-05-08] MEDS: KEPPRA PO SCH ×2 (09:50→22:26)
[2016-05-08] MEDS: ZESTRIL PO SCH ×2 (10:10→22:26)
[2016-05-08] MEDS: NORVASC PO SCH (10:11)
--- NOTE | 2016-05-08 12:01 | Progress Note ---
Assessment and Plan 61 y/o male with acute encephalopathy, secondary to embolic strokes, now with acute respiratory failure requiring re-intubation. 1. Fever: Still spiking but appears to be trending down. Dopplers negative. Does have some GPC's in urine but not speciated yet. Urine speciation not back yet. Will obtain Head CT to look for bleed and neck CT to evaluate swelling around trach site 2. Monitor positioning of trach. Distal obstruction is non-occlusive. Spoke with surgery and tract is not mature enough to change at this time. There is some swelling around the neck. Will continue to monitor this. 3. Continue PSV trials as tolerated, tomorrow may consider 24 hour trial. For tonight, rest on A/C and back to PSV in the am 4. Case management working on funding and possible placement CCT 31 minutes. Subjective Date of service: 05/08/16 Principal diagnosis: CVA, acute respiratory failure Interval history: No acute events. continues to spike temperatures and now the curve is trending upwards. No family at bedside. Plt count and WBC increasing as well Objective Vital Signs - 12hr 05/08/16 05/08/16 05/08/16 00:00 01:00 01:10 Temperature 102.4 F H Pulse Rate 86 83 Pulse Rate [ 105 H Apical] Pulse Rate [ 83 Bilateral] Respiratory 22 22 Rate Respiratory 22 Rate [Bilateral ] Blood Pressure 99/60 106/63 O2 Sat by Pulse 98 99 Oximetry O2 Sat by Pulse Oximetry [ Assessment] 05/08/16 05/08/16 05/08/16 01:22 01:44 02:00 Temperature Pulse Rate 87 86 Pulse Rate [ Apical] Pulse Rate [ 84 Bilateral] Respiratory 25 H 22 Rate Respiratory 20 Rate [Bilateral ] Blood Pressure 99/60 103/61 O2 Sat by Pulse 100 99 Oximetry O2 Sat by Pulse Oximetry [ Assessment] 05/08/16 05/08/16 05/08/16 02:03 02:05 03:00 Temperature Pulse Rate 87 86 Pulse Rate [ Apical] Pulse Rate [ Bilateral] Respiratory 22 22 Rate Respiratory Rate [Bilateral ] Blood Pressure 103/61 106/61 O2 Sat by Pulse 100 99 Oximetry O2 Sat by Pulse 100 Oximetry [ Assessment] 05/08/16 05/08/16 05/08/16 03:19 03:48 04:00 Temperature 98.1 F Pulse Rate 87 89 89 Pulse Rate [ Apical] Pulse Rate [ Bilateral] Respiratory 22 21 Rate Respiratory Rate [Bilateral ] Blood Pressure 106/61 106/61 115/65 O2 Sat by Pulse 100 100 100 Oximetry O2 Sat by Pulse Oximetry [ Assessment] 05/08/16 05/08/16 05/08/16 04:23 05:00 05:09 Temperature Pulse Rate 90 92 H 92 H Pulse Rate [ Apical] Pulse Rate [ Bilateral] Respiratory 25 H 24 23 Rate Respiratory Rate [Bilateral ] Blood Pressure 115/65 120/67 120/67 O2 Sat by Pulse 100 100 100 Oximetry O2 Sat by Pulse Oximetry [ Assessment] 05/08/16 05/08/16 05/08/16 06:00 06:11 07:00 Temperature Pulse Rate 92 H 93 H 95 H Pulse Rate [ Apical] Pulse Rate [ Bilateral] Respiratory 21 21 22 Rate Respiratory Rate [Bilateral ] Blood Pressure 113/66 113/66 120/67 O2 Sat by Pulse 100 100 100 Oximetry O2 Sat by Pulse Oximetry [ Assessment] 05/08/16 05/08/16 05/08/16 07:21 07:50 07:59 Temperature Pulse Rate 99 H 94 H 99 H Pulse Rate [ Apical] Pulse Rate [ Bilateral] Respiratory 27 H Rate Respiratory Rate [Bilateral ] Blood Pressure 120/67 113/66 210/67 O2 Sat by Pulse 100 100 Oximetry O2 Sat by Pulse Oximetry [ Assessment] 05/08/16 05/08/16 05/08/16 08:00 08:14 08:25 Temperature 101.2 F H Pulse Rate 100 H Pulse Rate [ 98 H Apical] Pulse Rate [ 94 H 114 H Bilateral] Respiratory 24 Rate Respiratory 22 23 Rate [Bilateral ] Blood Pressure 123/75 O2 Sat by Pulse 98 Oximetry O2 Sat by Pulse Oximetry [ Assessment] 05/08/16 05/08/16 05/08/16 09:00 09:17 10:00 Temperature Pulse Rate 82 82 83 Pulse Rate [ Apical] Pulse Rate [ Bilateral] Respiratory 34 H 33 H 32 H Rate Respiratory Rate [Bilateral ] Blood Pressure 104/61 123/75 100/57 O2 Sat by Pulse 100 100 100 Oximetry O2 Sat by Pulse Oximetry [ Assessment] 05/08/16 05/08/16 05/08/16 10:07 10:10 10:11 Temperature Pulse Rate 83 83 83 Pulse Rate [ Apical] Pulse Rate [ Bilateral] Respiratory 31 H Rate Respiratory Rate [Bilateral ] Blood Pressure 100/57 100/57 100/57 O2 Sat by Pulse 100 Oximetry O2 Sat by Pulse Oximetry [ Assessment] 05/08/16 05/08/16 05/08/16 10:57 10:59 11:00 Temperature Pulse Rate 85 85 86 Pulse Rate [ Apical] Pulse Rate [ Bilateral] Respiratory 29 H 29 H 32 H Rate Respiratory Rate [Bilateral ] Blood Pressure 100/57 100/57 108/61 O2 Sat by Pulse 100 100 99 Oximetry O2 Sat by Pulse Oximetry [ Assessment] Constitutional: no acute distress Eyes: non-icteric ENT: other (tracheotomy) Neck: supple Effort: normal Ascultation: Bilateral: clear, rhonchi (occasional) Percussion: Bilateral: not dull Cardiovascular: regular rate and rhythm Gastrointestinal: normoactive bowel sounds, soft, non-tender Extremities: no cyanosis, no edema Neurologic: other (GCS 4 on vent) CBC and BMP: 05/07/16 12:46 05/05/16 04:13 ABG, PT/INR, D-dimer: ABG POC ABG pH 7.511 (7.35-7.45) H 05/06/16 05:30 POC ABG pCO2 36.2 (35-45) 05/06/16 05:30 POC ABG pO2 92 (80-105) 05/06/16 05:30 POC ABG HCO3 28.9 05/06/16 05:30 POC ABG Total CO2 30 05/06/16 05:30 POC ABG O2 Sat 98 05/06/16 05:30 PT/INR, D-dimer PT 15.9 Sec. (12.2-14.9) H 04/23/16 10:45 INR 1.28 (0.87-1.13) H 04/23/16 10:45 Abnormal lab findings: Abnormal Labs 03/24/16 03/24/16 03/24/16 17:58 20:25 23:23 WBC RBC Hgb Hct MCV MCH MCHC RDW Plt Count Lymph % (Auto) [place] % (Auto) Lymph # [place] # Baso # Seg Neutrophils % Seg Neuts % (Manual) Lymphocytes % (Manual) Monocytes % (Manual) Seg Neutrophils # Seg Neutrophils # Man Lymphocytes # (Manual) Monocytes # (Manual) Basophils # (Manual) Percent Retic PT INR APTT Heparin Anti-Xa Level POC ABG pH POC ABG pCO2 POC ABG pO2 Sodium 169 H* Potassium 3.5 L Chloride 130.3 H Carbon Dioxide BUN 28 H Creatinine 1.8 H Glucose POC Glucose 112 H Calcium Phosphorus Iron TIBC Lactate Dehydrogenase Total Creatine Kinase NT-Pro-B Natriuret Pep Total Protein Albumin Mpvgl-4-Uvgdrqdef Xhkcj-9-Scgxajdmv Beta Globulins PEP Interpretation Cholesterol 221 H LDL Cholesterol Direct 146 H Vitamin B12 Urine WBC (Auto) Urine Creatinine Crossmatch 03/25/16 03/25/16 03/25/16 05:56 05:56 05:56 WBC 21.3 H RBC 6.32 H Hgb 16.7 H Hct 52.7 H MCV 83 L MCH 27 L MCHC RDW Plt Count Lymph % (Auto) [place] % (Auto) Lymph # [place] # Baso # Seg Neutrophils % Seg Neuts % (Manual) 91.0 H Lymphocytes % (Manual) 4.0 L Monocytes % (Manual) Seg Neutrophils # Seg Neutrophils # Man 19.4 H Lymphocytes # (Manual) 0.9 L Monocytes # (Manual) 0.9 H Basophils # (Manual) Percent Retic PT INR APTT Heparin Anti-Xa Level POC ABG pH POC ABG pCO2 POC ABG pO2 Sodium 172 H* Potassium 3.5 L Chloride 130.4 H Carbon Dioxide BUN 29 H Creatinine 1.8 H Glucose 187 H POC Glucose Calcium Phosphorus Iron TIBC Lactate Dehydrogenase 460 H Total Creatine Kinase NT-Pro-B Natriuret Pep Total Protein Albumin Sxevo-7-Hejdhlysz Yymzw-0-Oazuvkesy Beta Globulins PEP Interpretation Cholesterol LDL Cholesterol Direct Vitamin B12 Urine WBC (Auto) Urine Creatinine Crossmatch 03/25/16 03/25/16 03/25/16 07:55 12:19 13:00 WBC RBC Hgb Hct MCV MCH MCHC RDW Plt Count Lymph % (Auto) [place] % (Auto) Lymph # [place] # Baso # Seg Neutrophils % Seg Neuts % (Manual) Lymphocytes % (Manual) Monocytes % (Manual) Seg Neutrophils # Seg Neutrophils # Man Lymphocytes # (Manual) Monocytes # (Manual) Basophils # (Manual) Percent Retic PT INR APTT Heparin Anti-Xa Level POC ABG pH POC ABG pCO2 POC ABG pO2 Sodium Potassium Chloride Carbon Dioxide BUN Creatinine Glucose POC Glucose 231 H 314 H Calcium Phosphorus Iron TIBC Lactate Dehydrogenase Total Creatine Kinase NT-Pro-B Natriuret Pep Total Protein Albumin 3.4 L Jqsit-2-Jphhslncr 0.4 H Sqsaz-1-Hheaejxsx 1.1 H Beta Globulins 0.6 H PEP Interpretation see below H Cholesterol LDL Cholesterol Direct Vitamin B12 Urine WBC (Auto) Urine Creatinine Crossmatch 03/25/16 03/25/16 03/26/16 16:41 22:45 08:32 WBC RBC Hgb Hct MCV MCH MCHC RDW Plt Count Lymph % (Auto) [place] % (Auto) Lymph # [place] # Baso # Seg Neutrophils % Seg Neuts % (Manual) Lymphocytes % (Manual) Monocytes % (Manual) Seg Neutrophils # Seg Neutrophils # Man Lymphocytes # (Manual) Monocytes # (Manual) Basophils # (Manual) Percent Retic PT INR APTT Heparin Anti-Xa Level POC ABG pH POC ABG pCO2 POC ABG pO2 Sodium Potassium Chloride Carbon Dioxide BUN Creatinine Glucose POC Glucose 444 H 326 H 360 H Calcium Phosphorus Iron TIBC Lactate Dehydrogenase Total Creatine Kinase NT-Pro-B Natriuret Pep Total Protein Albumin Ivcoc-2-Vktsnkxbl Gwrpe-2-Tbhdxxewf Beta Globulins PEP Interpretation Cholesterol LDL Cholesterol Direct Vitamin B12 Urine WBC (Auto) Urine Creatinine Crossmatch 03/26/16 03/26/16 03/26/16 12:38 15:33 15:47 WBC RBC Hgb Hct MCV MCH MCHC RDW Plt Count Lymph % (Auto) [place] % (Auto) Lymph # [place] # Baso # Seg Neutrophils % Seg Neuts % (Manual) Lymphocytes % (Manual) Monocytes % (Manual) Seg Neutrophils # Seg Neutrophils # Man Lymphocytes # (Manual) Monocytes # (Manual) Basophils # (Manual) Percent Retic PT INR APTT Heparin Anti-Xa Level POC ABG pH 7.511 H POC ABG pCO2 26.5 L POC ABG pO2 70 L Sodium Potassium Chloride Carbon Dioxide BUN Creatinine Glucose POC Glucose 280 H 174 H Calcium Phosphorus Iron TIBC Lactate Dehydrogenase Total Creatine Kinase NT-Pro-B Natriuret Pep Total Protein Albumin Awtcb-0-Dvgcxkzgf Jwtqj-7-Ewwjonweh Beta Globulins PEP Interpretation Cholesterol LDL Cholesterol Direct Vitamin B12 Urine WBC (Auto) Urine Creatinine Crossmatch 03/26/16 03/26/16 03/26/16 16:47 16:47 18:51 WBC 14.0 H RBC 5.17 H Hgb Hct MCV MCH 26 L MCHC 31 L RDW Plt Count 139 L Lymph % (Auto) [place] % (Auto) Lymph # [place] # Baso # Seg Neutrophils % Seg Neuts % (Manual) Lymphocytes % (Manual) Monocytes % (Manual) Seg Neutrophils # Seg Neutrophils # Man Lymphocytes # (Manual) Monocytes # (Manual) Basophils # (Manual) Percent Retic PT INR APTT Heparin Anti-Xa Level POC ABG pH POC ABG pCO2 33.9 L POC ABG pO2 150 H Sodium 164 H* Potassium 3.4 L Chloride 128.5 H Carbon Dioxide BUN 30 H Creatinine 2.2 H Glucose 121 H POC Glucose Calcium 8.1 L Phosphorus Iron TIBC Lactate Dehydrogenase Total Creatine Kinase NT-Pro-B Natriuret Pep Total Protein Albumin Encbm-6-Gsgewmgiw Hjzzp-7-Zionmxzya Beta Globulins PEP Interpretation Cholesterol LDL Cholesterol Direct Vitamin B12 Urine WBC (Auto) Urine Creatinine Crossmatch 03/27/16 03/27/16 03/27/16 02:19 05:47 06:02 WBC RBC Hgb Hct MCV MCH MCHC RDW Plt Count Lymph % (Auto) [place] % (Auto) Lymph # [place] # Baso # Seg Neutrophils % Seg Neuts % (Manual) Lymphocytes % (Manual) Monocytes % (Manual) Seg Neutrophils # Seg Neutrophils # Man Lymphocytes # (Manual) Monocytes # (Manual) Basophils # (Manual) Percent Retic PT INR APTT Heparin Anti-Xa Level POC ABG pH POC ABG pCO2 27.3 L 30.3 L POC ABG pO2 50 L 112 H Sodium 158 H Potassium Chloride 126.7 H Carbon Dioxide 20 L BUN 25 H Creatinine 1.7 H Glucose POC Glucose Calcium 7.0 L Phosphorus Iron TIBC Lactate Dehydrogenase Total Creatine Kinase NT-Pro-B Natriuret Pep Total Protein Albumin Tiina-6-Mvdenuehy Mmdow-6-Sogjowikj Beta Globulins PEP Interpretation Cholesterol LDL Cholesterol Direct Vitamin B12 Urine WBC (Auto) Urine Creatinine Crossmatch 03/27/16 03/27/16 03/27/16 07:51 09:20 11:45 WBC 14.2 H RBC Hgb Hct MCV 83 L MCH 27 L MCHC RDW Plt Count 113 L Lymph % (Auto) [place] % (Auto) Lymph # [place] # Baso # Seg Neutrophils % Seg Neuts % (Manual) Lymphocytes % (Manual) Monocytes % (Manual) Seg Neutrophils # Seg Neutrophils # Man Lymphocytes # (Manual) Monocytes # (Manual) Basophils # (Manual) Percent Retic PT INR APTT Heparin Anti-Xa Level POC ABG pH POC ABG pCO2 POC ABG pO2 Sodium Potassium Chloride Carbon Dioxide BUN Creatinine Glucose POC Glucose 124 H 241 H Calcium Phosphorus Iron TIBC Lactate Dehydrogenase Total Creatine Kinase NT-Pro-B Natriuret Pep Total Protein Albumin Fknuv-6-Ycisaefbn Fewzy-5-Ppwiikgyf Beta Globulins PEP Interpretation Cholesterol LDL Cholesterol Direct Vitamin B12 Urine WBC (Auto) Urine Creatinine Crossmatch 03/27/16 03/27/16 03/28/16 16:39 22:03 03:29 WBC RBC Hgb Hct MCV MCH MCHC RDW Plt Count Lymph % (Auto) [place] % (Auto) Lymph # [place] # Baso # Seg Neutrophils % Seg Neuts % (Manual) Lymphocytes % (Manual) Monocytes % (Manual) Seg Neutrophils # Seg Neutrophils # Man Lymphocytes # (Manual) Monocytes # (Manual) Basophils # (Manual) Percent Retic PT INR APTT Heparin Anti-Xa Level POC ABG pH POC ABG pCO2 POC ABG pO2 Sodium Potassium Chloride Carbon Dioxide BUN Creatinine Glucose POC Glucose 266 H 167 H 241 H Calcium Phosphorus Iron TIBC Lactate Dehydrogenase Total Creatine Kinase NT-Pro-B Natriuret Pep Total Protein Albumin Ahhgz-0-Puelzknkg Bafxx-7-Mzueozqsj Beta Globulins PEP Interpretation Cholesterol LDL Cholesterol Direct Vitamin B12 Urine WBC (Auto) Urine Creatinine Crossmatch 03/28/16 03/28/16 03/28/16 05:00 05:00 05:00 WBC RBC Hgb Hct MCV 83 L MCH 27 L MCHC RDW Plt Count 106 L Lymph % (Auto) [place] % (Auto) 10.1 H Lymph # [place] # 1.0 H Baso # Seg Neutrophils % 75.1 H Seg Neuts % (Manual) Lymphocytes % (Manual) Monocytes % (Manual) Seg Neutrophils # Seg Neutrophils # Man Lymphocytes # (Manual) Monocytes # (Manual) Basophils # (Manual) Percent Retic PT INR APTT Heparin Anti-Xa Level POC ABG pH POC ABG pCO2 POC ABG pO2 Sodium 147 H D Potassium 3.1 L D Chloride 112.3 H Carbon Dioxide 21 L BUN Creatinine Glucose 208 H POC Glucose Calcium 7.0 L Phosphorus 2.2 L Iron TIBC Lactate Dehydrogenase Total Creatine Kinase NT-Pro-B Natriuret Pep Total Protein Albumin Ifzsb-5-Pwddvkekf Ximar-1-Uvfmkrmlg Beta Globulins PEP Interpretation Cholesterol LDL Cholesterol Direct Vitamin B12 Urine WBC (Auto) Urine Creatinine Crossmatch 11/03/28/16 03/28/16 05:14 08:41 10:56 WBC RBC Hgb Hct MCV MCH MCHC RDW Plt Count Lymph % (Auto) [place] % (Auto) Lymph # [place] # Baso # Seg Neutrophils % Seg Neuts % (Manual) Lymphocytes % (Manual) Monocytes % (Manual) Seg Neutrophils # Seg Neutrophils # Man Lymphocytes # (Manual) Monocytes # (Manual) Basophils # (Manual) Percent Retic PT INR APTT Heparin Anti-Xa Level POC ABG pH 7.457 H POC ABG pCO2 29.7 L 27.7 L POC ABG pO2 Sodium Potassium Chloride Carbon Dioxide BUN Creatinine Glucose POC Glucose 228 H Calcium Phosphorus Iron TIBC Lactate Dehydrogenase Total Creatine Kinase NT-Pro-B Natriuret Pep Total Protein Albumin Wiemp-2-Lolpogezy Lkafn-3-Ssgysdobr Beta Globulins PEP Interpretation Cholesterol LDL Cholesterol Direct Vitamin B12 Urine WBC (Auto) Urine Creatinine Crossmatch 03/28/16 03/28/16 03/28/16 11:37 13:29 16:22 WBC RBC Hgb Hct MCV MCH MCHC RDW Plt Count Lymph % (Auto) [place] % (Auto) Lymph # [place] # Baso # Seg Neutrophils % Seg Neuts % (Manual) Lymphocytes % (Manual) Monocytes % (Manual) Seg Neutrophils # Seg Neutrophils # Man Lymphocytes # (Manual) Monocytes # (Manual) Basophils # (Manual) Percent Retic PT INR APTT Heparin Anti-Xa Level POC ABG pH POC ABG pCO2 POC ABG pO2 Sodium Potassium Chloride Carbon Dioxide BUN Creatinine Glucose POC Glucose 226 H 200 H Calcium Phosphorus Iron TIBC Lactate Dehydrogenase Total Creatine Kinase 356 H NT-Pro-B Natriuret Pep Total Protein Albumin Tvsqe-0-Dlwgfbhiq Kmtzf-3-Rygvnfhfv Beta Globulins PEP Interpretation Cholesterol LDL Cholesterol Direct Vitamin B12 Urine WBC (Auto) Urine Creatinine Crossmatch 03/28/16 03/29/16 03/29/16 21:48 04:50 04:50 WBC RBC Hgb 11.5 L Hct 35.3 L MCV 81 L MCH 26 L MCHC RDW Plt Count 97 L Lymph % (Auto) [place] % (Auto) 11.7 H Lymph # [place] # 1.1 H Baso # Seg Neutrophils % Seg Neuts % (Manual) Lymphocytes % (Manual) Monocytes % (Manual) Seg Neutrophils # Seg Neutrophils # Man Lymphocytes # (Manual) Monocytes # (Manual) Basophils # (Manual) Percent Retic PT INR APTT Heparin Anti-Xa Level POC ABG pH POC ABG pCO2 POC ABG pO2 Sodium 136 L D Potassium 3.3 L Chloride Carbon Dioxide 20 L BUN Creatinine Glucose 386 H POC Glucose 188 H Calcium 6.8 L Phosphorus 1.6 L D Iron TIBC Lactate Dehydrogenase Total Creatine Kinase NT-Pro-B Natriuret Pep Total Protein Albumin Zapxk-0-Cohfifhmm Aifcz-0-Codypkqld Beta Globulins PEP Interpretation Cholesterol LDL Cholesterol Direct Vitamin B12 Urine WBC (Auto) Urine Creatinine Crossmatch 03/29/16 03/29/16 03/29/16 08:10 11:12 16:09 WBC RBC Hgb Hct MCV MCH MCHC RDW Plt Count Lymph % (Auto) [place] % (Auto) Lymph # [place] # Baso # Seg Neutrophils % Seg Neuts % (Manual) Lymphocytes % (Manual) Monocytes % (Manual) Seg Neutrophils # Seg Neutrophils # Man Lymphocytes # (Manual) Monocytes # (Manual) Basophils # (Manual) Percent Retic PT INR APTT Heparin Anti-Xa Level POC ABG pH POC ABG pCO2 POC ABG pO2 Sodium Potassium Chloride Carbon Dioxide BUN Creatinine Glucose POC Glucose 230 H 180 H 46 L Calcium Phosphorus Iron TIBC Lactate Dehydrogenase Total Creatine Kinase NT-Pro-B Natriuret Pep Total Protein Albumin Oclrp-2-Idpbcahyq Jnyue-5-Itmghlnbn Beta Globulins PEP Interpretation Cholesterol LDL Cholesterol Direct Vitamin B12 Urine WBC (Auto) Urine Creatinine Crossmatch 03/29/16 03/29/16 03/30/16 16:12 18:15 02:53 WBC RBC Hgb Hct MCV MCH MCHC RDW Plt Count Lymph % (Auto) [place] % (Auto) Lymph # [place] # Baso # Seg Neutrophils % Seg Neuts % (Manual) Lymphocytes % (Manual) Monocytes % (Manual) Seg Neutrophils # Seg Neutrophils # Man Lymphocytes # (Manual) Monocytes # (Manual) Basophils # (Manual) Percent Retic PT INR APTT Heparin Anti-Xa Level POC ABG pH POC ABG pCO2 POC ABG pO2 Sodium Potassium Chloride Carbon Dioxide BUN Creatinine Glucose POC Glucose 52 L 118 H 130 H Calcium Phosphorus Iron TIBC Lactate Dehydrogenase Total Creatine Kinase NT-Pro-B Natriuret Pep Total Protein Albumin Tywtj-2-Ycwtxiwnt Mcyqa-9-Nvhbgqoam Beta Globulins PEP Interpretation Cholesterol LDL Cholesterol Direct Vitamin B12 Urine WBC (Auto) Urine Creatinine Crossmatch 03/30/16 03/30/16 03/30/16 04:00 04:00 05:29 WBC RBC Hgb Hct MCV 81 L MCH 26 L MCHC RDW Plt Count 116 L Lymph % (Auto) 10.8 L [place] % (Auto) 13.1 H Lymph # 1.0 L [place] # 1.3 H Baso # Seg Neutrophils % 74.2 H Seg Neuts % (Manual) Lymphocytes % (Manual) Monocytes % (Manual) Seg Neutrophils # Seg Neutrophils # Man Lymphocytes # (Manual) Monocytes # (Manual) Basophils # (Manual) Percent Retic PT INR APTT Heparin Anti-Xa Level POC ABG pH 7.522 H POC ABG pCO2 22.7 L POC ABG pO2 137 H Sodium 147 H D Potassium Chloride 115.5 H Carbon Dioxide 20 L BUN Creatinine Glucose 116 H POC Glucose Calcium 7.6 L Phosphorus 2.3 L D Iron TIBC Lactate Dehydrogenase Total Creatine Kinase NT-Pro-B Natriuret Pep Total Protein Albumin Tzwzd-1-Rjrfimrzd Jaumk-4-Nksbyzupy Beta Globulins PEP Interpretation Cholesterol LDL Cholesterol Direct Vitamin B12 Urine WBC (Auto) Urine Creatinine Crossmatch 03/30/16 03/30/16 03/30/16 05:47 08:05 08:59 WBC RBC Hgb Hct MCV MCH MCHC RDW Plt Count Lymph % (Auto) [place] % (Auto) Lymph # [place] # Baso # Seg Neutrophils % Seg Neuts % (Manual) Lymphocytes % (Manual) Monocytes % (Manual) Seg Neutrophils # Seg Neutrophils # Man Lymphocytes # (Manual) Monocytes # (Manual) Basophils # (Manual) Percent Retic PT INR APTT Heparin Anti-Xa Level POC ABG pH POC ABG pCO2 26.2 L POC ABG pO2 115 H Sodium Potassium Chloride Carbon Dioxide BUN Creatinine Glucose POC Glucose 138 H 171 H Calcium Phosphorus Iron TIBC Lactate Dehydrogenase Total Creatine Kinase NT-Pro-B Natriuret Pep Total Protein Albumin [place]-6-Bqzloieqz Vqrkq-0-Alhdcuxka Beta Globulins PEP Interpretation Cholesterol LDL Cholesterol Direct Vitamin B12 Urine WBC (Auto) Urine Creatinine Crossmatch 03/30/16 03/30/16 03/30/16 12:11 12:11 16:39 WBC RBC Hgb Hct MCV MCH MCHC RDW Plt Count Lymph % (Auto) [place] % (Auto) Lymph # [place] # Baso # Seg Neutrophils % Seg Neuts % (Manual) Lymphocytes % (Manual) Monocytes % (Manual) Seg Neutrophils # Seg Neutrophils # Man Lymphocytes # (Manual) Monocytes # (Manual) Basophils # (Manual) Percent Retic PT INR APTT Heparin Anti-Xa Level POC ABG pH 7.476 H POC ABG pCO2 29.0 L POC ABG pO2 Sodium Potassium Chloride Carbon Dioxide BUN Creatinine Glucose POC Glucose 142 H 59 L Calcium Phosphorus Iron TIBC Lactate Dehydrogenase Total Creatine Kinase NT-Pro-B Natriuret Pep Total Protein Albumin Mvmrs-6-Vlyyqqyzy Rzemt-9-Fpnsfnpob Beta Globulins PEP Interpretation Cholesterol LDL Cholesterol Direct Vitamin B12 Urine WBC (Auto) Urine Creatinine Crossmatch 03/30/16 03/30/16 03/31/16 18:41 21:59 05:02 WBC RBC Hgb Hct MCV MCH MCHC RDW Plt Count Lymph % (Auto) [place] % (Auto) Lymph # [place] # Baso # Seg Neutrophils % Seg Neuts % (Manual) Lymphocytes % (Manual) Monocytes % (Manual) Seg Neutrophils # Seg Neutrophils # Man Lymphocytes # (Manual) Monocytes # (Manual) Basophils # (Manual) Percent Retic PT INR APTT Heparin Anti-Xa Level POC ABG pH 7.519 H POC ABG pCO2 21.8 L POC ABG pO2 142 H Sodium Potassium Chloride Carbon Dioxide BUN Creatinine Glucose POC Glucose 145 H 154 H Calcium Phosphorus Iron TIBC Lactate Dehydrogenase Total Creatine Kinase NT-Pro-B Natriuret Pep Total Protein Albumin Dbsxb-2-Nlzglwgba Dyikh-7-Tjovlromo Beta Globulins PEP Interpretation Cholesterol LDL Cholesterol Direct Vitamin B12 Urine WBC (Auto) Urine Creatinine Crossmatch 03/31/16 03/31/16 03/31/16 05:15 05:15 05:15 WBC 13.4 H RBC 5.21 H Hgb Hct MCV 81 L MCH 26 L MCHC RDW Plt Count Lymph % (Auto) 9.5 L [place] % (Auto) 14.0 H Lymph # [place] # 1.9 H Baso # Seg Neutrophils % 75.0 H Seg Neuts % (Manual) Lymphocytes % (Manual) Monocytes % (Manual) Seg Neutrophils # 10.1 H Seg Neutrophils # Man Lymphocytes # (Manual) Monocytes # (Manual) Basophils # (Manual) Percent Retic PT INR APTT Heparin Anti-Xa Level POC ABG pH POC ABG pCO2 POC ABG pO2 Sodium Potassium Chloride 108.5 H Carbon Dioxide 19 L BUN Creatinine Glucose 188 H POC Glucose Calcium Phosphorus Iron TIBC Lactate Dehydrogenase Total Creatine Kinase NT-Pro-B Natriuret Pep 1089 H Total Protein Albumin Xaoox-9-Vqliznewq Deaqs-2-Phcchiyeq Beta Globulins PEP Interpretation Cholesterol LDL Cholesterol Direct Vitamin B12 Urine WBC (Auto) Urine Creatinine Crossmatch 03/31/16 03/31/16 03/31/16 07:23 11:12 15:20 WBC RBC Hgb Hct MCV MCH MCHC RDW Plt Count Lymph % (Auto) [place] % (Auto) Lymph # [place] # Baso # Seg Neutrophils % Seg Neuts % (Manual) Lymphocytes % (Manual) Monocytes % (Manual) Seg Neutrophils # Seg Neutrophils # Man Lymphocytes # (Manual) Monocytes # (Manual) Basophils # (Manual) Percent Retic PT INR APTT Heparin Anti-Xa Level POC ABG pH POC ABG pCO2 POC ABG pO2 Sodium Potassium Chloride Carbon Dioxide BUN Creatinine Glucose POC Glucose 233 H 228 H 208 H Calcium Phosphorus Iron TIBC Lactate Dehydrogenase Total Creatine Kinase NT-Pro-B Natriuret Pep Total Protein Albumin Shalo-1-Ykxnzrbre Pxmff-6-Nuljmelmi Beta Globulins PEP Interpretation Cholesterol LDL Cholesterol Direct Vitamin B12 Urine WBC (Auto) Urine Creatinine Crossmatch 03/31/16 04/01/16 04/01/16 21:27 04:41 05:35 WBC 12.1 H RBC Hgb Hct MCV 81 L MCH 26 L MCHC RDW Plt Count Lymph % (Auto) 8.5 L [place] % (Auto) 14.0 H Lymph # 1.0 L [place] # 1.7 H Baso # Seg Neutrophils % 76.2 H Seg Neuts % (Manual) Lymphocytes % (Manual) Monocytes % (Manual) Seg Neutrophils # 9.2 H Seg Neutrophils # Man Lymphocytes # (Manual) Monocytes # (Manual) Basophils # (Manual) Percent Retic PT INR APTT Heparin Anti-Xa Level POC ABG pH 7.455 H POC ABG pCO2 31.0 L POC ABG pO2 Sodium Potassium Chloride Carbon Dioxide BUN Creatinine Glucose POC Glucose 162 H Calcium Phosphorus Iron TIBC Lactate Dehydrogenase Total Creatine Kinase NT-Pro-B Natriuret Pep Total Protein Albumin Ywerl-3-Mayqzhahc Nucqj-8-Ydunosklg Beta Globulins PEP Interpretation Cholesterol LDL Cholesterol Direct Vitamin B12 Urine WBC (Auto) Urine Creatinine Crossmatch 04/01/16 04/01/16 04/01/16 05:35 08:44 12:49 WBC RBC Hgb Hct MCV MCH MCHC RDW Plt Count Lymph % (Auto) [place] % (Auto) Lymph # [place] # Baso # Seg Neutrophils % Seg Neuts % (Manual) Lymphocytes % (Manual) Monocytes % (Manual) Seg Neutrophils # Seg Neutrophils # Man Lymphocytes # (Manual) Monocytes # (Manual) Basophils # (Manual) Percent Retic PT INR APTT Heparin Anti-Xa Level POC ABG pH POC ABG pCO2 POC ABG pO2 Sodium Potassium Chloride Carbon Dioxide BUN Creatinine Glucose 256 H POC Glucose 257 H 279 H Calcium 8.0 L Phosphorus Iron TIBC Lactate Dehydrogenase Total Creatine Kinase NT-Pro-B Natriuret Pep 1205 H Total Protein Albumin Kqput-3-Wszwxateh Mutiy-0-Oanilqylk Beta Globulins PEP Interpretation Cholesterol LDL Cholesterol Direct Vitamin B12 Urine WBC (Auto) Urine Creatinine Crossmatch 04/01/16 04/02/16 04/02/16 18:12 00:42 04:17 WBC RBC Hgb Hct MCV MCH MCHC RDW Plt Count Lymph % (Auto) [place] % (Auto) Lymph # [place] # Baso # Seg Neutrophils % Seg Neuts % (Manual) Lymphocytes % (Manual) Monocytes % (Manual) Seg Neutrophils # Seg Neutrophils # Man Lymphocytes # (Manual) Monocytes # (Manual) Basophils # (Manual) Percent Retic PT INR APTT Heparin Anti-Xa Level POC ABG pH 7.582 H POC ABG pCO2 26.8 L POC ABG pO2 Sodium Potassium Chloride Carbon Dioxide BUN Creatinine Glucose POC Glucose 168 H 282 H Calcium Phosphorus Iron TIBC Lactate Dehydrogenase Total Creatine Kinase NT-Pro-B Natriuret Pep Total Protein Albumin Jsuyr-2-Ixgdnfqwb Wbkoj-6-Uqvjlitpp Beta Globulins PEP Interpretation Cholesterol LDL Cholesterol Direct Vitamin B12 Urine WBC (Auto) Urine Creatinine Crossmatch 04/02/16 04/02/16 04/02/16 05:00 05:00 06:27 WBC 12.4 H RBC Hgb Hct MCV 81 L MCH 26 L MCHC RDW Plt Count Lymph % (Auto) 6.4 L [place] % (Auto) 13.3 H Lymph # 0.8 L [place] # 1.7 H Baso # Seg Neutrophils % 79.4 H Seg Neuts % (Manual) Lymphocytes % (Manual) Monocytes % (Manual) Seg Neutrophils # 9.9 H Seg Neutrophils # Man Lymphocytes # (Manual) Monocytes # (Manual) Basophils # (Manual) Percent Retic PT INR APTT Heparin Anti-Xa Level POC ABG pH POC ABG pCO2 POC ABG pO2 Sodium 146 H Potassium Chloride Carbon Dioxide BUN Creatinine Glucose 334 H POC Glucose 317 H Calcium 8.0 L Phosphorus Iron TIBC Lactate Dehydrogenase Total Creatine Kinase NT-Pro-B Natriuret Pep Total Protein Albumin Cqocl-3-Fuztyqsnl Kemxl-1-Wgqmdobcd Beta Globulins PEP Interpretation Cholesterol LDL Cholesterol Direct Vitamin B12 Urine WBC (Auto) Urine Creatinine Crossmatch 04/02/16 04/02/16 04/02/16 11:51 13:10 17:24 WBC RBC Hgb Hct MCV MCH MCHC RDW Plt Count Lymph % (Auto) [place] % (Auto) Lymph # [place] # Baso # Seg Neutrophils % Seg Neuts % (Manual) Lymphocytes % (Manual) Monocytes % (Manual) Seg Neutrophils # Seg Neutrophils # Man Lymphocytes # (Manual) Monocytes # (Manual) Basophils # (Manual) Percent Retic PT INR APTT Heparin Anti-Xa Level POC ABG pH 7.518 H POC ABG pCO2 POC ABG pO2 Sodium Potassium Chloride Carbon Dioxide BUN Creatinine Glucose POC Glucose 278 H 195 H Calcium Phosphorus Iron TIBC Lactate Dehydrogenase Total Creatine Kinase NT-Pro-B Natriuret Pep Total Protein Albumin Prpwl-1-Owmebfgyf Neyjh-9-Szeuhjena Beta Globulins PEP Interpretation Cholesterol LDL Cholesterol Direct Vitamin B12 Urine WBC (Auto) Urine Creatinine Crossmatch 04/03/16 04/03/16 04/03/16 00:18 04:10 04:10 WBC 14.3 H RBC Hgb Hct MCV 81 L MCH 26 L MCHC RDW Plt Count Lymph % (Auto) 9.0 L [place] % (Auto) 10.7 H Lymph # [place] # 1.5 H Baso # 0.2 H Seg Neutrophils % 78.5 H Seg Neuts % (Manual) Lymphocytes % (Manual) Monocytes % (Manual) Seg Neutrophils # 11.3 H Seg Neutrophils # Man Lymphocytes # (Manual) Monocytes # (Manual) Basophils # (Manual) Percent Retic PT INR APTT Heparin Anti-Xa Level POC ABG pH POC ABG pCO2 POC ABG pO2 Sodium 148 H Potassium Chloride 108.1 H Carbon Dioxide BUN 21 H Creatinine Glucose 227 H POC Glucose 144 H Calcium 8.2 L Phosphorus Iron TIBC Lactate Dehydrogenase Total Creatine Kinase NT-Pro-B Natriuret Pep Total Protein Albumin Psmlj-0-Yunvljkhd Inzzv-1-Knznovqio Beta Globulins PEP Interpretation Cholesterol LDL Cholesterol Direct Vitamin B12 Urine WBC (Auto) Urine Creatinine Crossmatch 04/03/16 04/03/16 04/04/16 11:14 17:10 04:00 WBC 14.5 H RBC Hgb Hct MCV 81 L MCH 26 L MCHC RDW Plt Count Lymph % (Auto) 7.2 L [place] % (Auto) 7.6 H Lymph # 1.0 L [place] # 1.1 H Baso # Seg Neutrophils % 84.5 H Seg Neuts % (Manual) Lymphocytes % (Manual) Monocytes % (Manual) Seg Neutrophils # 12.3 H Seg Neutrophils # Man Lymphocytes # (Manual) Monocytes # (Manual) Basophils # (Manual) Percent Retic PT INR APTT Heparin Anti-Xa Level POC ABG pH POC ABG pCO2 POC ABG pO2 Sodium Potassium Chloride Carbon Dioxide BUN Creatinine Glucose POC Glucose 267 H 212 H Calcium Phosphorus Iron TIBC Lactate Dehydrogenase Total Creatine Kinase NT-Pro-B Natriuret Pep Total Protein Albumin Bmxez-7-Sxsbzgksb Bjemh-8-Tryrgekoa Beta Globulins PEP Interpretation Cholesterol LDL Cholesterol Direct Vitamin B12 Urine WBC (Auto) Urine Creatinine Crossmatch 04/04/16 04/04/16 04/04/16 05:00 09:55 09:55 WBC RBC Hgb 11.5 L Hct MCV MCH MCHC RDW Plt Count Lymph % (Auto) [place] % (Auto) Lymph # [place] # Baso # Seg Neutrophils % Seg Neuts % (Manual) Lymphocytes % (Manual) Monocytes % (Manual) Seg Neutrophils # Seg Neutrophils # Man Lymphocytes # (Manual) Monocytes # (Manual) Basophils # (Manual) Percent Retic PT INR APTT 42.1 H Heparin Anti-Xa Level POC ABG pH POC ABG pCO2 POC ABG pO2 Sodium 146 H Potassium Chloride Carbon Dioxide BUN 22 H Creatinine Glucose 128 H POC Glucose Calcium Phosphorus Iron TIBC Lactate Dehydrogenase Total Creatine Kinase NT-Pro-B Natriuret Pep Total Protein Albumin Xwuac-5-Phhmtvbxs Edgeq-7-Qzbhptkwz Beta Globulins PEP Interpretation Cholesterol LDL Cholesterol Direct Vitamin B12 Urine WBC (Auto) Urine Creatinine Crossmatch 04/04/16 04/04/16 04/04/16 11:45 17:49 17:55 WBC RBC Hgb Hct MCV MCH MCHC RDW Plt Count Lymph % (Auto) [place] % (Auto) Lymph # [place] # Baso # Seg Neutrophils % Seg Neuts % (Manual) Lymphocytes % (Manual) Monocytes % (Manual) Seg Neutrophils # Seg Neutrophils # Man Lymphocytes # (Manual) Monocytes # (Manual) Basophils # (Manual) Percent Retic PT INR APTT Heparin Anti-Xa Level 1.19 H POC ABG pH POC ABG pCO2 POC ABG pO2 Sodium Potassium Chloride Carbon Dioxide BUN Creatinine Glucose POC Glucose 231 H 186 H Calcium Phosphorus Iron TIBC Lactate Dehydrogenase Total Creatine Kinase NT-Pro-B Natriuret Pep Total Protein Albumin Dcoyf-0-Nkdcmtzyw Capqv-7-Fghgzwwxf Beta Globulins PEP Interpretation Cholesterol LDL Cholesterol Direct Vitamin B12 Urine WBC (Auto) Urine Creatinine Crossmatch 04/05/16 04/05/16 04/05/16 00:35 05:32 05:42 WBC RBC Hgb Hct MCV MCH MCHC RDW Plt Count Lymph % (Auto) [place] % (Auto) Lymph # [place] # Baso # Seg Neutrophils % Seg Neuts % (Manual) Lymphocytes % (Manual) Monocytes % (Manual) Seg Neutrophils # Seg Neutrophils # Man Lymphocytes # (Manual) Monocytes # (Manual) Basophils # (Manual) Percent Retic PT INR APTT Heparin Anti-Xa Level POC ABG pH 7.491 H POC ABG pCO2 POC ABG pO2 Sodium Potassium Chloride Carbon Dioxide BUN Creatinine Glucose POC Glucose 192 H 242 H Calcium Phosphorus Iron TIBC Lactate Dehydrogenase Total Creatine Kinase NT-Pro-B Natriuret Pep Total Protein Albumin Oqgih-4-Igojdcfei Ccfms-9-Xmqyvufjq Beta Globulins PEP Interpretation Cholesterol LDL Cholesterol Direct Vitamin B12 Urine WBC (Auto) Urine Creatinine Crossmatch 04/05/16 04/05/16 04/05/16 06:20 06:20 12:19 WBC 13.9 H RBC Hgb 11.6 L Hct MCV 81 L MCH 26 L MCHC RDW Plt Count Lymph % (Auto) 9.6 L [place] % (Auto) 8.7 H Lymph # [place] # 1.2 H Baso # Seg Neutrophils % 80.9 H Seg Neuts % (Manual) Lymphocytes % (Manual) Monocytes % (Manual) Seg Neutrophils # 11.3 H Seg Neutrophils # Man Lymphocytes # (Manual) Monocytes # (Manual) Basophils # (Manual) Percent Retic PT INR APTT Heparin Anti-Xa Level POC ABG pH POC ABG pCO2 POC ABG pO2 Sodium 148 H Potassium Chloride Carbon Dioxide BUN 23 H Creatinine Glucose 242 H POC Glucose 187 H Calcium Phosphorus Iron TIBC Lactate Dehydrogenase Total Creatine Kinase NT-Pro-B Natriuret Pep Total Protein Albumin Epyfx-6-Gjfebrcmp Obnkt-0-Ujvolyarh Beta Globulins PEP Interpretation Cholesterol LDL Cholesterol Direct Vitamin B12 Urine WBC (Auto) Urine Creatinine Crossmatch 04/05/16 04/05/16 04/06/16 17:10 23:45 05:23 WBC 13.0 H RBC Hgb Hct MCV 82 L MCH 26 L MCHC 31 L RDW Plt Count Lymph % (Auto) 6.7 L [place] % (Auto) 8.3 H Lymph # 0.9 L [place] # 1.1 H Baso # Seg Neutrophils % 84.6 H Seg Neuts % (Manual) Lymphocytes % (Manual) Monocytes % (Manual) Seg Neutrophils # 11.0 H Seg Neutrophils # Man Lymphocytes # (Manual) Monocytes # (Manual) Basophils # (Manual) Percent Retic PT INR APTT Heparin Anti-Xa Level POC ABG pH POC ABG pCO2 POC ABG pO2 Sodium Potassium Chloride Carbon Dioxide BUN Creatinine Glucose POC Glucose 169 H 202 H Calcium Phosphorus Iron TIBC Lactate Dehydrogenase Total Creatine Kinase NT-Pro-B Natriuret Pep Total Protein Albumin Fkpgu-2-Vliwogzkr Frnet-9-Yyfcztjlr Beta Globulins PEP Interpretation Cholesterol LDL Cholesterol Direct Vitamin B12 Urine WBC (Auto) Urine Creatinine Crossmatch 04/06/16 04/06/16 04/06/16 05:23 05:23 06:11 WBC RBC Hgb Hct MCV MCH MCHC RDW Plt Count Lymph % (Auto) [place] % (Auto) Lymph # [place] # Baso # Seg Neutrophils % Seg Neuts % (Manual) Lymphocytes % (Manual) Monocytes % (Manual) Seg Neutrophils # Seg Neutrophils # Man Lymphocytes # (Manual) Monocytes # (Manual) Basophils # (Manual) Percent Retic PT INR APTT Heparin Anti-Xa Level 0.21 L POC ABG pH POC ABG pCO2 POC ABG pO2 Sodium 153 H Potassium Chloride 111.3 H Carbon Dioxide BUN 22 H Creatinine Glucose 62 L POC Glucose 56 L Calcium Phosphorus Iron TIBC Lactate Dehydrogenase Total Creatine Kinase NT-Pro-B Natriuret Pep Total Protein Albumin Aoxqb-7-Fponqdvzj Fzeoz-6-Bewteriua Beta Globulins PEP Interpretation Cholesterol LDL Cholesterol Direct Vitamin B12 Urine WBC (Auto) Urine Creatinine Crossmatch 04/06/16 04/06/16 04/06/16 06:52 11:36 14:58 WBC RBC Hgb Hct MCV MCH MCHC RDW Plt Count Lymph % (Auto) [place] % (Auto) Lymph # [place] # Baso # Seg Neutrophils % Seg Neuts % (Manual) Lymphocytes % (Manual) Monocytes % (Manual) Seg Neutrophils # Seg Neutrophils # Man Lymphocytes # (Manual) Monocytes # (Manual) Basophils # (Manual) Percent Retic PT INR APTT Heparin Anti-Xa Level POC ABG pH POC ABG pCO2 POC ABG pO2 Sodium Potassium Chloride Carbon Dioxide BUN Creatinine Glucose POC Glucose 206 H 139 H 147 H Calcium Phosphorus Iron TIBC Lactate Dehydrogenase Total Creatine Kinase NT-Pro-B Natriuret Pep Total Protein Albumin Pwwcd-2-Olscaxffb Beurl-7-Mwhsflkjg Beta Globulins PEP Interpretation Cholesterol LDL Cholesterol Direct Vitamin B12 Urine WBC (Auto) Urine Creatinine Crossmatch 04/06/16 04/06/16 04/06/16 16:03 21:18 23:53 WBC RBC Hgb Hct MCV MCH MCHC RDW Plt Count Lymph % (Auto) [place] % (Auto) Lymph # [place] # Baso # Seg Neutrophils % Seg Neuts % (Manual) Lymphocytes % (Manual) Monocytes % (Manual) Seg Neutrophils # Seg Neutrophils # Man Lymphocytes # (Manual) Monocytes # (Manual) Basophils # (Manual) Percent Retic PT INR APTT Heparin Anti-Xa Level POC ABG pH POC ABG pCO2 POC ABG pO2 Sodium Potassium Chloride Carbon Dioxide BUN Creatinine Glucose POC Glucose 154 H 293 H 301 H Calcium Phosphorus Iron TIBC Lactate Dehydrogenase Total Creatine Kinase NT-Pro-B Natriuret Pep Total Protein Albumin Qzpwv-5-Rvwngzzgm Xeomr-3-Zelszwzxr Beta Globulins PEP Interpretation Cholesterol LDL Cholesterol Direct Vitamin B12 Urine WBC (Auto) Urine Creatinine Crossmatch 04/07/16 04/07/16 04/07/16 02:30 05:11 05:11 WBC 12.5 H RBC Hgb 11.5 L Hct MCV 82 L MCH 26 L MCHC 31 L RDW Plt Count Lymph % (Auto) [place] % (Auto) Lymph # [place] # Baso # Seg Neutrophils % Seg Neuts % (Manual) Lymphocytes % (Manual) Monocytes % (Manual) Seg Neutrophils # Seg Neutrophils # Man Lymphocytes # (Manual) Monocytes # (Manual) Basophils # (Manual) Percent Retic PT INR APTT Heparin Anti-Xa Level 0.11 L POC ABG pH POC ABG pCO2 POC ABG pO2 Sodium 150 H Potassium Chloride 109.5 H Carbon Dioxide BUN 28 H Creatinine Glucose 264 H POC Glucose Calcium Phosphorus Iron TIBC Lactate Dehydrogenase Total Creatine Kinase NT-Pro-B Natriuret Pep Total Protein Albumin Bsgjw-7-Dvwvrkwck Nrftn-8-Lvqobbwjl Beta Globulins PEP Interpretation Cholesterol LDL Cholesterol Direct Vitamin B12 Urine WBC (Auto) Urine Creatinine Crossmatch 04/07/16 04/07/16 04/07/16 06:46 10:18 11:50 WBC RBC Hgb Hct MCV MCH MCHC RDW Plt Count Lymph % (Auto) [place] % (Auto) Lymph # [place] # Baso # Seg Neutrophils % Seg Neuts % (Manual) Lymphocytes % (Manual) Monocytes % (Manual) Seg Neutrophils # Seg Neutrophils # Man Lymphocytes # (Manual) Monocytes # (Manual) Basophils # (Manual) Percent Retic PT 15.1 H INR 1.20 H APTT Heparin Anti-Xa Level POC ABG pH POC ABG pCO2 POC ABG pO2 Sodium Potassium Chloride Carbon Dioxide BUN Creatinine Glucose POC Glucose 259 H 288 H Calcium Phosphorus Iron TIBC Lactate Dehydrogenase Total Creatine Kinase NT-Pro-B Natriuret Pep Total Protein Albumin Borve-3-Xvbtofdku Saabp-6-Emejkousw Beta Globulins PEP Interpretation Cholesterol LDL Cholesterol Direct Vitamin B12 Urine WBC (Auto) Urine Creatinine Crossmatch 04/07/16 04/08/16 04/08/16 17:58 01:25 06:49 WBC RBC Hgb Hct MCV MCH MCHC RDW Plt Count Lymph % (Auto) [place] % (Auto) Lymph # [place] # Baso # Seg Neutrophils % Seg Neuts % (Manual) Lymphocytes % (Manual) Monocytes % (Manual) Seg Neutrophils # Seg Neutrophils # Man Lymphocytes # (Manual) Monocytes # (Manual) Basophils # (Manual) Percent Retic PT INR APTT Heparin Anti-Xa Level POC ABG pH POC ABG pCO2 POC ABG pO2 Sodium 156 H Potassium Chloride 114.7 H Carbon Dioxide BUN 33 H Creatinine Glucose 169 H POC Glucose 330 H 146 H Calcium Phosphorus Iron TIBC Lactate Dehydrogenase Total Creatine Kinase NT-Pro-B Natriuret Pep Total Protein Albumin Gzfgy-6-Csqtzaowa Fcrya-9-Rholnjjgr Beta Globulins PEP Interpretation Cholesterol LDL Cholesterol Direct Vitamin B12 Urine WBC (Auto) Urine Creatinine Crossmatch 04/08/16 04/08/16 04/08/16 07:34 10:28 10:28 WBC RBC Hgb Hct MCV MCH MCHC RDW Plt Count Lymph % (Auto) [place] % (Auto) Lymph # [place] # Baso # Seg Neutrophils % Seg Neuts % (Manual) Lymphocytes % (Manual) Monocytes % (Manual) Seg Neutrophils # Seg Neutrophils # Man Lymphocytes # (Manual) Monocytes # (Manual) Basophils # (Manual) Percent Retic PT 15.5 H INR 1.24 H APTT Heparin Anti-Xa Level 0.24 L POC ABG pH POC ABG pCO2 POC ABG pO2 Sodium Potassium Chloride Carbon Dioxide BUN Creatinine Glucose POC Glucose 232 H Calcium Phosphorus Iron TIBC Lactate Dehydrogenase Total Creatine Kinase NT-Pro-B Natriuret Pep Total Protein Albumin Ludce-1-Klfgpdgnx Wfvzh-8-Xbkychcpc Beta Globulins PEP Interpretation Cholesterol LDL Cholesterol Direct Vitamin B12 Urine WBC (Auto) Urine Creatinine Crossmatch 04/08/16 04/08/16 04/09/16 11:36 15:38 00:01 WBC RBC Hgb Hct MCV MCH MCHC RDW Plt Count Lymph % (Auto) [place] % (Auto) Lymph # [place] # Baso # Seg Neutrophils % Seg Neuts % (Manual) Lymphocytes % (Manual) Monocytes % (Manual) Seg Neutrophils # Seg Neutrophils # Man Lymphocytes # (Manual) Monocytes # (Manual) Basophils # (Manual) Percent Retic PT INR APTT Heparin Anti-Xa Level POC ABG pH POC ABG pCO2 POC ABG pO2 Sodium Potassium Chloride Carbon Dioxide BUN Creatinine Glucose POC Glucose 193 H 163 H 180 H Calcium Phosphorus Iron TIBC Lactate Dehydrogenase Total Creatine Kinase NT-Pro-B Natriuret Pep Total Protein Albumin Vkdhr-0-Yzbyyrtnq Kzqmv-8-Kmbohbobt Beta Globulins PEP Interpretation Cholesterol LDL Cholesterol Direct Vitamin B12 Urine WBC (Auto) Urine Creatinine Crossmatch 04/09/16 04/09/16 04/09/16 06:17 06:42 06:42 WBC RBC Hgb Hct MCV MCH MCHC RDW Plt Count Lymph % (Auto) [place] % (Auto) Lymph # [place] # Baso # Seg Neutrophils % Seg Neuts % (Manual) Lymphocytes % (Manual) Monocytes % (Manual) Seg Neutrophils # Seg Neutrophils # Man Lymphocytes # (Manual) Monocytes # (Manual) Basophils # (Manual) Percent Retic PT 17.4 H INR 1.43 H APTT Heparin Anti-Xa Level POC ABG pH POC ABG pCO2 POC ABG pO2 Sodium 153 H Potassium Chloride 113.2 H Carbon Dioxide BUN 29 H Creatinine Glucose 301 H POC Glucose 249 H Calcium 8.3 L Phosphorus Iron TIBC Lactate Dehydrogenase Total Creatine Kinase NT-Pro-B Natriuret Pep Total Protein Albumin Euodx-8-Elylemkzx Daeip-7-Hlxylydcg Beta Globulins PEP Interpretation Cholesterol LDL Cholesterol Direct Vitamin B12 Urine WBC (Auto) Urine Creatinine Crossmatch 04/09/16 04/09/16 04/09/16 07:37 11:26 15:45 WBC RBC Hgb Hct MCV MCH MCHC RDW Plt Count Lymph % (Auto) [place] % (Auto) Lymph # [place] # Baso # Seg Neutrophils % Seg Neuts % (Manual) Lymphocytes % (Manual) Monocytes % (Manual) Seg Neutrophils # Seg Neutrophils # Man Lymphocytes # (Manual) Monocytes # (Manual) Basophils # (Manual) Percent Retic PT INR APTT Heparin Anti-Xa Level POC ABG pH POC ABG pCO2 POC ABG pO2 Sodium Potassium Chloride Carbon Dioxide BUN Creatinine Glucose POC Glucose 283 H 306 H 354 H Calcium Phosphorus Iron TIBC Lactate Dehydrogenase Total Creatine Kinase NT-Pro-B Natriuret Pep Total Protein Albumin Ckinv-1-Bauovvbux Bcsib-1-Xgnufbyir Beta Globulins PEP Interpretation Cholesterol LDL Cholesterol Direct Vitamin B12 Urine WBC (Auto) Urine Creatinine Crossmatch 04/10/16 04/10/16 04/10/16 00:53 07:15 07:34 WBC RBC Hgb 11.3 L Hct MCV MCH MCHC RDW Plt Count Lymph % (Auto) [place] % (Auto) Lymph # [place] # Baso # Seg Neutrophils % Seg Neuts % (Manual) Lymphocytes % (Manual) Monocytes % (Manual) Seg Neutrophils # Seg Neutrophils # Man Lymphocytes # (Manual) Monocytes # (Manual) Basophils # (Manual) Percent Retic PT INR APTT Heparin Anti-Xa Level POC ABG pH POC ABG pCO2 POC ABG pO2 Sodium Potassium Chloride Carbon Dioxide BUN Creatinine Glucose POC Glucose 323 H 311 H Calcium Phosphorus Iron TIBC Lactate Dehydrogenase Total Creatine Kinase NT-Pro-B Natriuret Pep Total Protein Albumin Bswkk-0-Unaxyqrgp Fagxy-8-Bogierpdk Beta Globulins PEP Interpretation Cholesterol LDL Cholesterol Direct Vitamin B12 Urine WBC (Auto) Urine Creatinine Crossmatch 04/10/16 04/10/16 04/10/16 07:34 07:34 11:25 WBC RBC Hgb Hct MCV MCH MCHC RDW Plt Count Lymph % (Auto) [place] % (Auto) Lymph # [place] # Baso # Seg Neutrophils % Seg Neuts % (Manual) Lymphocytes % (Manual) Monocytes % (Manual) Seg Neutrophils # Seg Neutrophils # Man Lymphocytes # (Manual) Monocytes # (Manual) Basophils # (Manual) Percent Retic PT 17.3 H INR 1.42 H APTT Heparin Anti-Xa Level POC ABG pH POC ABG pCO2 POC ABG pO2 Sodium 158 H Potassium Chloride 118.6 H Carbon Dioxide BUN 30 H Creatinine Glucose 330 H POC Glucose 335 H Calcium 8.3 L Phosphorus Iron TIBC Lactate Dehydrogenase Total Creatine Kinase NT-Pro-B Natriuret Pep Total Protein Albumin Eukbp-4-Gxoebnprc Tdlea-1-Qwykrmoky Beta Globulins PEP Interpretation Cholesterol LDL Cholesterol Direct Vitamin B12 Urine WBC (Auto) Urine Creatinine Crossmatch 04/10/16 04/11/16 04/11/16 16:21 00:29 07:47 WBC RBC Hgb Hct MCV MCH MCHC RDW Plt Count Lymph % (Auto) [place] % (Auto) Lymph # [place] # Baso # Seg Neutrophils % Seg Neuts % (Manual) Lymphocytes % (Manual) Monocytes % (Manual) Seg Neutrophils # Seg Neutrophils # Man Lymphocytes # (Manual) Monocytes # (Manual) Basophils # (Manual) Percent Retic PT 18.4 H INR 1.53 H APTT Heparin Anti-Xa Level POC ABG pH POC ABG pCO2 POC ABG pO2 Sodium Potassium Chloride Carbon Dioxide BUN Creatinine Glucose POC Glucose 230 H 162 H Calcium Phosphorus Iron TIBC Lactate Dehydrogenase Total Creatine Kinase NT-Pro-B Natriuret Pep Total Protein Albumin Kcuhy-9-Zdchunagv Myucc-1-Vwfbqqbbf Beta Globulins PEP Interpretation Cholesterol LDL Cholesterol Direct Vitamin B12 Urine WBC (Auto) Urine Creatinine Crossmatch 04/11/16 04/11/16 04/12/16 07:47 11:22 04:54 WBC RBC Hgb 11.0 L Hct 35.0 L MCV MCH MCHC RDW Plt Count Lymph % (Auto) [place] % (Auto) Lymph # [place] # Baso # Seg Neutrophils % Seg Neuts % (Manual) Lymphocytes % (Manual) Monocytes % (Manual) Seg Neutrophils # Seg Neutrophils # Man Lymphocytes # (Manual) Monocytes # (Manual) Basophils # (Manual) Percent Retic PT INR APTT Heparin Anti-Xa Level POC ABG pH POC ABG pCO2 POC ABG pO2 Sodium 155 H Potassium Chloride 114.5 H Carbon Dioxide BUN 23 H Creatinine Glucose 157 H POC Glucose 229 H Calcium Phosphorus Iron TIBC Lactate Dehydrogenase Total Creatine Kinase NT-Pro-B Natriuret Pep Total Protein Albumin Vhien-7-Lpbbmflmd Mvxnh-0-Zujonygrz Beta Globulins PEP Interpretation Cholesterol LDL Cholesterol Direct Vitamin B12 Urine WBC (Auto) Urine Creatinine Crossmatch 04/12/16 04/12/16 04/12/16 04:54 04:54 05:57 WBC RBC Hgb Hct MCV MCH MCHC RDW Plt Count Lymph % (Auto) [place] % (Auto) Lymph # [place] # Baso # Seg Neutrophils % Seg Neuts % (Manual) Lymphocytes % (Manual) Monocytes % (Manual) Seg Neutrophils # Seg Neutrophils # Man Lymphocytes # (Manual) Monocytes # (Manual) Basophils # (Manual) Percent Retic PT 22.5 H INR 1.98 H APTT Heparin Anti-Xa Level 0.19 L POC ABG pH POC ABG pCO2 POC ABG pO2 Sodium 156 H Potassium Chloride 115.4 H Carbon Dioxide BUN 23 H Creatinine Glucose 143 H POC Glucose 194 H Calcium Phosphorus Iron TIBC Lactate Dehydrogenase Total Creatine Kinase NT-Pro-B Natriuret Pep Total Protein Albumin Cjjzs-6-Edvzyxwyn Htzyc-9-Xkkxupmro Beta Globulins PEP Interpretation Cholesterol LDL Cholesterol Direct Vitamin B12 Urine WBC (Auto) Urine Creatinine Crossmatch 04/12/16 04/12/16 04/12/16 12:34 19:01 23:30 WBC RBC Hgb Hct MCV MCH MCHC RDW Plt Count Lymph % (Auto) [place] % (Auto) Lymph # [place] # Baso # Seg Neutrophils % Seg Neuts % (Manual) Lymphocytes % (Manual) Monocytes % (Manual) Seg Neutrophils # Seg Neutrophils # Man Lymphocytes # (Manual) Monocytes # (Manual) Basophils # (Manual) Percent Retic PT INR APTT Heparin Anti-Xa Level POC ABG pH POC ABG pCO2 POC ABG pO2 Sodium Potassium Chloride Carbon Dioxide BUN Creatinine Glucose POC Glucose 291 H 235 H 154 H Calcium Phosphorus Iron TIBC Lactate Dehydrogenase Total Creatine Kinase NT-Pro-B Natriuret Pep Total Protein Albumin Souuq-5-Yexyjzjbn Ufxka-0-Ahxkrfjhq Beta Globulins PEP Interpretation Cholesterol LDL Cholesterol Direct Vitamin B12 Urine WBC (Auto) Urine Creatinine Crossmatch 04/13/16 04/13/16 04/13/16 05:16 05:16 05:28 WBC RBC Hgb Hct MCV MCH MCHC RDW Plt Count Lymph % (Auto) [place] % (Auto) Lymph # [place] # Baso # Seg Neutrophils % Seg Neuts % (Manual) Lymphocytes % (Manual) Monocytes % (Manual) Seg Neutrophils # Seg Neutrophils # Man Lymphocytes # (Manual) Monocytes # (Manual) Basophils # (Manual) Percent Retic PT 27.0 H INR 2.49 H APTT Heparin Anti-Xa Level 0.20 L POC ABG pH POC ABG pCO2 POC ABG pO2 Sodium 150 H Potassium Chloride 110.5 H Carbon Dioxide BUN 21 H Creatinine Glucose 159 H POC Glucose 177 H Calcium Phosphorus Iron TIBC Lactate Dehydrogenase Total Creatine Kinase NT-Pro-B Natriuret Pep Total Protein Albumin Yxmmq-7-Tmusuomql Wfrds-1-Coerwdzll Beta Globulins PEP Interpretation Cholesterol LDL Cholesterol Direct Vitamin B12 Urine WBC (Auto) Urine Creatinine Crossmatch 04/13/16 04/13/16 04/14/16 11:30 17:54 00:44 WBC RBC Hgb Hct MCV MCH MCHC RDW Plt Count Lymph % (Auto) [place] % (Auto) Lymph # [place] # Baso # Seg Neutrophils % Seg Neuts % (Manual) Lymphocytes % (Manual) Monocytes % (Manual) Seg Neutrophils # Seg Neutrophils # Man Lymphocytes # (Manual) Monocytes # (Manual) Basophils # (Manual) Percent Retic PT INR APTT Heparin Anti-Xa Level POC ABG pH POC ABG pCO2 POC ABG pO2 Sodium Potassium Chloride Carbon Dioxide BUN Creatinine Glucose POC Glucose 181 H 251 H 237 H Calcium Phosphorus Iron TIBC Lactate Dehydrogenase Total Creatine Kinase NT-Pro-B Natriuret Pep Total Protein Albumin Pcewo-8-Hscfahvxo Fhreu-2-Hwzctjyvk Beta Globulins PEP Interpretation Cholesterol LDL Cholesterol Direct Vitamin B12 Urine WBC (Auto) Urine Creatinine Crossmatch 04/14/16 04/14/16 04/14/16 05:00 05:42 05:42 WBC RBC Hgb Hct MCV MCH MCHC RDW Plt Count Lymph % (Auto) [place] % (Auto) Lymph # [place] # Baso # Seg Neutrophils % Seg Neuts % (Manual) Lymphocytes % (Manual) Monocytes % (Manual) Seg Neutrophils # Seg Neutrophils # Man Lymphocytes # (Manual) Monocytes # (Manual) Basophils # (Manual) Percent Retic PT 30.3 H INR 2.88 H APTT Heparin Anti-Xa Level 0.27 L POC ABG pH POC ABG pCO2 POC ABG pO2 Sodium Potassium 3.5 L Chloride Carbon Dioxide BUN Creatinine Glucose 160 H POC Glucose Calcium 8.2 L Phosphorus Iron TIBC Lactate Dehydrogenase Total Creatine Kinase NT-Pro-B Natriuret Pep Total Protein Albumin Lyhrz-8-Zjhimhphe Qlkus-6-Mwxtjggjo Beta Globulins PEP Interpretation Cholesterol LDL Cholesterol Direct Vitamin B12 Urine WBC (Auto) Urine Creatinine Crossmatch 04/14/16 04/14/16 04/14/16 06:02 06:16 09:18 WBC 12.3 H RBC Hgb 11.4 L Hct MCV 82 L MCH 26 L MCHC RDW Plt Count Lymph % (Auto) [place] % (Auto) Lymph # [place] # Baso # Seg Neutrophils % Seg Neuts % (Manual) Lymphocytes % (Manual) Monocytes % (Manual) Seg Neutrophils # Seg Neutrophils # Man Lymphocytes # (Manual) Monocytes # (Manual) Basophils # (Manual) Percent Retic PT INR APTT Heparin Anti-Xa Level POC ABG pH POC ABG pCO2 POC ABG pO2 Sodium Potassium Chloride Carbon Dioxide BUN Creatinine Glucose POC Glucose 156 H 164 H Calcium Phosphorus Iron TIBC Lactate Dehydrogenase Total Creatine Kinase NT-Pro-B Natriuret Pep Total Protein Albumin Ijvzx-6-Valabdfpk Ssflg-0-Pxbroohtb Beta Globulins PEP Interpretation Cholesterol LDL Cholesterol Direct Vitamin B12 Urine WBC (Auto) Urine Creatinine Crossmatch 04/14/16 04/15/16 04/15/16 13:58 01:07 06:04 WBC RBC Hgb Hct MCV MCH MCHC RDW Plt Count Lymph % (Auto) [place] % (Auto) Lymph # [place] # Baso # Seg Neutrophils % Seg Neuts % (Manual) Lymphocytes % (Manual) Monocytes % (Manual) Seg Neutrophils # Seg Neutrophils # Man Lymphocytes # (Manual) Monocytes # (Manual) Basophils # (Manual) Percent Retic PT 24.9 H INR 2.25 H APTT Heparin Anti-Xa Level POC ABG pH POC ABG pCO2 POC ABG pO2 Sodium Potassium Chloride Carbon Dioxide BUN Creatinine Glucose POC Glucose 109 H 154 H Calcium Phosphorus Iron TIBC Lactate Dehydrogenase Total Creatine Kinase NT-Pro-B Natriuret Pep Total Protein Albumin Ritms-9-Qmoxdrcsi Mmqau-9-Vlseojkbc Beta Globulins PEP Interpretation Cholesterol LDL Cholesterol Direct Vitamin B12 Urine WBC (Auto) Urine Creatinine Crossmatch 04/15/16 04/15/16 04/16/16 06:08 12:41 00:38 WBC RBC Hgb Hct MCV MCH MCHC RDW Plt Count Lymph % (Auto) [place] % (Auto) Lymph # [place] # Baso # Seg Neutrophils % Seg Neuts % (Manual) Lymphocytes % (Manual) Monocytes % (Manual) Seg Neutrophils # Seg Neutrophils # Man Lymphocytes # (Manual) Monocytes # (Manual) Basophils # (Manual) Percent Retic PT INR APTT Heparin Anti-Xa Level POC ABG pH POC ABG pCO2 POC ABG pO2 Sodium Potassium Chloride Carbon Dioxide BUN Creatinine Glucose POC Glucose 165 H 223 H 216 H Calcium Phosphorus Iron TIBC Lactate Dehydrogenase Total Creatine Kinase NT-Pro-B Natriuret Pep Total Protein Albumin Bdipe-2-Izcxbslja Hvnvz-7-Cnvgvwlzn Beta Globulins PEP Interpretation Cholesterol LDL Cholesterol Direct Vitamin B12 Urine WBC (Auto) Urine Creatinine Crossmatch 04/16/16 04/16/16 04/16/16 05:45 07:09 14:00 WBC RBC Hgb Hct MCV MCH MCHC RDW Plt Count Lymph % (Auto) [place] % (Auto) Lymph # [place] # Baso # Seg Neutrophils % Seg Neuts % (Manual) Lymphocytes % (Manual) Monocytes % (Manual) Seg Neutrophils # Seg Neutrophils # Man Lymphocytes # (Manual) Monocytes # (Manual) Basophils # (Manual) Percent Retic PT 19.4 H INR 1.64 H APTT Heparin Anti-Xa Level 0.10 L POC ABG pH POC ABG pCO2 POC ABG pO2 Sodium Potassium Chloride Carbon Dioxide BUN Creatinine Glucose POC Glucose 207 H 69 L Calcium Phosphorus Iron TIBC Lactate Dehydrogenase Total Creatine Kinase NT-Pro-B Natriuret Pep Total Protein Albumin Ptnmn-4-Cfeqitzig Wdlag-7-Xgtqxotxm Beta Globulins PEP Interpretation Cholesterol LDL Cholesterol Direct Vitamin B12 Urine WBC (Auto) Urine Creatinine Crossmatch 04/16/16 04/16/16 04/16/16 17:40 17:52 19:38 WBC RBC Hgb Hct MCV MCH MCHC RDW Plt Count Lymph % (Auto) [place] % (Auto) Lymph # [place] # Baso # Seg Neutrophils % Seg Neuts % (Manual) Lymphocytes % (Manual) Monocytes % (Manual) Seg Neutrophils # Seg Neutrophils # Man Lymphocytes # (Manual) Monocytes # (Manual) Basophils # (Manual) Percent Retic PT INR APTT Heparin Anti-Xa Level 0.26 L POC ABG pH 7.543 H 7.488 H POC ABG pCO2 26.3 L 30.3 L POC ABG pO2 55 L 203 H Sodium Potassium Chloride Carbon Dioxide BUN Creatinine Glucose POC Glucose Calcium Phosphorus Iron TIBC Lactate Dehydrogenase Total Creatine Kinase NT-Pro-B Natriuret Pep Total Protein Albumin Ecacf-1-Ylzygqjza Knnrm-4-Qdkuvhhsh Beta Globulins PEP Interpretation Cholesterol LDL Cholesterol Direct Vitamin B12 Urine WBC (Auto) Urine Creatinine Crossmatch 04/17/16 04/17/16 04/17/16 00:04 05:10 05:36 WBC RBC Hgb Hct MCV MCH MCHC RDW Plt Count Lymph % (Auto) [place] % (Auto) Lymph # [place] # Baso # Seg Neutrophils % Seg Neuts % (Manual) Lymphocytes % (Manual) Monocytes % (Manual) Seg Neutrophils # Seg Neutrophils # Man Lymphocytes # (Manual) Monocytes # (Manual) Basophils # (Manual) Percent Retic PT INR APTT Heparin Anti-Xa Level POC ABG pH POC ABG pCO2 32.7 L POC ABG pO2 68 L Sodium Potassium Chloride Carbon Dioxide BUN Creatinine Glucose POC Glucose 113 H 161 H Calcium Phosphorus Iron TIBC Lactate Dehydrogenase Total Creatine Kinase NT-Pro-B Natriuret Pep Total Protein Albumin Nrbky-0-Tfwfimrux Vnvqj-5-Gugfarqtu Beta Globulins PEP Interpretation Cholesterol LDL Cholesterol Direct Vitamin B12 Urine WBC (Auto) Urine Creatinine Crossmatch 04/17/16 04/17/16 04/17/16 05:41 08:37 11:46 WBC RBC Hgb Hct MCV MCH MCHC RDW Plt Count Lymph % (Auto) [place] % (Auto) Lymph # [place] # Baso # Seg Neutrophils % Seg Neuts % (Manual) Lymphocytes % (Manual) Monocytes % (Manual) Seg Neutrophils # Seg Neutrophils # Man Lymphocytes # (Manual) Monocytes # (Manual) Basophils # (Manual) Percent Retic PT 17.4 H INR 1.43 H APTT Heparin Anti-Xa Level POC ABG pH POC ABG pCO2 POC ABG pO2 Sodium Potassium Chloride Carbon Dioxide BUN Creatinine Glucose POC Glucose 154 H 138 H Calcium Phosphorus Iron TIBC Lactate Dehydrogenase Total Creatine Kinase NT-Pro-B Natriuret Pep Total Protein Albumin Shghr-1-Lwpljbxlo Vtqpt-9-Icjyfvynu Beta Globulins PEP Interpretation Cholesterol LDL Cholesterol Direct Vitamin B12 Urine WBC (Auto) Urine Creatinine Crossmatch 04/17/16 04/17/16 04/17/16 12:17 12:17 21:20 WBC 16.5 H RBC 3.31 L Hgb 8.8 L Hct 26.9 L MCV 81 L MCH 27 L MCHC RDW 15.5 H Plt Count Lymph % (Auto) [place] % (Auto) Lymph # [place] # Baso # Seg Neutrophils % Seg Neuts % (Manual) Lymphocytes % (Manual) 3.0 L Monocytes % (Manual) Seg Neutrophils # Seg Neutrophils # Man 10.1 H Lymphocytes # (Manual) 0.5 L Monocytes # (Manual) Basophils # (Manual) Percent Retic PT INR APTT Heparin Anti-Xa Level 0.14 L POC ABG pH POC ABG pCO2 POC ABG pO2 Sodium Potassium Chloride Carbon Dioxide 21 L BUN 38 H Creatinine 1.8 H D Glucose 131 H POC Glucose Calcium 7.6 L Phosphorus Iron TIBC Lactate Dehydrogenase Total Creatine Kinase NT-Pro-B Natriuret Pep Total Protein Albumin Dqeur-7-Feqgxbnjz Cwmqq-7-Ezlhxlwiy Beta Globulins PEP Interpretation Cholesterol LDL Cholesterol Direct Vitamin B12 Urine WBC (Auto) Urine Creatinine Crossmatch 04/17/16 04/17/16 04/18/16 23:38 23:41 00:21 WBC RBC Hgb Hct MCV MCH MCHC RDW Plt Count Lymph % (Auto) [place] % (Auto) Lymph # [place] # Baso # Seg Neutrophils % Seg Neuts % (Manual) Lymphocytes % (Manual) Monocytes % (Manual) Seg Neutrophils # Seg Neutrophils # Man Lymphocytes # (Manual) Monocytes # (Manual) Basophils # (Manual) Percent Retic PT INR APTT Heparin Anti-Xa Level POC ABG pH POC ABG pCO2 POC ABG pO2 Sodium Potassium Chloride Carbon Dioxide BUN Creatinine Glucose POC Glucose < 40 L < 40 L 223 H Calcium Phosphorus Iron TIBC Lactate Dehydrogenase Total Creatine Kinase NT-Pro-B Natriuret Pep Total Protein Albumin Fdhsc-7-Tlhctjowv Iloyq-5-Hazdijlqj Beta Globulins PEP Interpretation Cholesterol LDL Cholesterol Direct Vitamin B12 Urine WBC (Auto) Urine Creatinine Crossmatch 04/18/16 04/18/16 04/18/16 05:01 05:20 05:20 WBC 17.6 H RBC 3.44 L Hgb 9.1 L Hct 27.8 L MCV 81 L MCH 26 L MCHC RDW 15.5 H Plt Count Lymph % (Auto) 2.7 L [place] % (Auto) 8.3 H Lymph # 0.5 L [place] # 1.5 H Baso # Seg Neutrophils % 88.4 H Seg Neuts % (Manual) Lymphocytes % (Manual) Monocytes % (Manual) Seg Neutrophils # 15.6 H Seg Neutrophils # Man Lymphocytes # (Manual) Monocytes # (Manual) Basophils # (Manual) Percent Retic PT 17.4 H INR 1.43 H APTT Heparin Anti-Xa Level POC ABG pH 7.528 H POC ABG pCO2 27.9 L POC ABG pO2 Sodium Potassium Chloride Carbon Dioxide BUN Creatinine Glucose POC Glucose Calcium Phosphorus Iron TIBC Lactate Dehydrogenase Total Creatine Kinase NT-Pro-B Natriuret Pep Total Protein Albumin Snhlp-8-Xsnnlvdel Xqoji-7-Ujvmtvpve Beta Globulins PEP Interpretation Cholesterol LDL Cholesterol Direct Vitamin B12 Urine WBC (Auto) Urine Creatinine Crossmatch 04/18/16 04/18/16 04/18/16 05:20 05:31 06:50 WBC RBC Hgb Hct MCV MCH MCHC RDW Plt Count Lymph % (Auto) [place] % (Auto) Lymph # [place] # Baso # Seg Neutrophils % Seg Neuts % (Manual) Lymphocytes % (Manual) Monocytes % (Manual) Seg Neutrophils # Seg Neutrophils # Man Lymphocytes # (Manual) Monocytes # (Manual) Basophils # (Manual) Percent Retic PT INR APTT Heparin Anti-Xa Level POC ABG pH POC ABG pCO2 POC ABG pO2 Sodium Potassium 3.4 L Chloride Carbon Dioxide 21 L BUN 22 H Creatinine Glucose POC Glucose 61 L 124 H Calcium 8.0 L Phosphorus Iron TIBC Lactate Dehydrogenase Total Creatine Kinase NT-Pro-B Natriuret Pep Total Protein Albumin Avtnz-7-Avvbguekv Cmzrt-9-Lmzwnptji Beta Globulins PEP Interpretation Cholesterol LDL Cholesterol Direct Vitamin B12 Urine WBC (Auto) Urine Creatinine Crossmatch 04/18/16 04/18/16 04/19/16 17:42 22:40 00:31 WBC RBC Hgb Hct MCV MCH MCHC RDW Plt Count Lymph % (Auto) [place] % (Auto) Lymph # [place] # Baso # Seg Neutrophils % Seg Neuts % (Manual) Lymphocytes % (Manual) Monocytes % (Manual) Seg Neutrophils # Seg Neutrophils # Man Lymphocytes # (Manual) Monocytes # (Manual) Basophils # (Manual) Percent Retic PT INR APTT Heparin Anti-Xa Level < 0.10 L POC ABG pH POC ABG pCO2 POC ABG pO2 Sodium Potassium Chloride Carbon Dioxide BUN Creatinine Glucose POC Glucose 159 H 134 H Calcium Phosphorus Iron TIBC Lactate Dehydrogenase Total Creatine Kinase NT-Pro-B Natriuret Pep Total Protein Albumin Opanb-4-Gyosnmjjj Asvwj-3-Ywkmfihay Beta Globulins PEP Interpretation Cholesterol LDL Cholesterol Direct Vitamin B12 Urine WBC (Auto) Urine Creatinine Crossmatch 04/19/16 04/19/16 04/19/16 04:18 04:18 04:25 WBC 19.0 H RBC 3.58 L Hgb 9.3 L Hct 28.8 L MCV 80 L MCH 26 L MCHC RDW 15.5 H Plt Count Lymph % (Auto) 2.8 L [place] % (Auto) 7.4 H Lymph # 0.5 L [place] # 1.4 H Baso # Seg Neutrophils % 89.4 H Seg Neuts % (Manual) Lymphocytes % (Manual) Monocytes % (Manual) Seg Neutrophils # 17.0 H Seg Neutrophils # Man Lymphocytes # (Manual) Monocytes # (Manual) Basophils # (Manual) Percent Retic PT INR APTT Heparin Anti-Xa Level POC ABG pH 7.527 H POC ABG pCO2 27.1 L POC ABG pO2 Sodium Potassium Chloride Carbon Dioxide BUN 22 H Creatinine Glucose 215 H POC Glucose Calcium 8.0 L Phosphorus Iron TIBC Lactate Dehydrogenase Total Creatine Kinase NT-Pro-B Natriuret Pep Total Protein Albumin Ohgdj-9-Uawtrckuu Kebhk-6-Qcnynxfqd Beta Globulins PEP Interpretation Cholesterol LDL Cholesterol Direct Vitamin B12 Urine WBC (Auto) Urine Creatinine Crossmatch 04/19/16 04/19/16 04/19/16 05:45 08:10 14:08 WBC RBC Hgb Hct MCV MCH MCHC RDW Plt Count Lymph % (Auto) [place] % (Auto) Lymph # [place] # Baso # Seg Neutrophils % Seg Neuts % (Manual) Lymphocytes % (Manual) Monocytes % (Manual) Seg Neutrophils # Seg Neutrophils # Man Lymphocytes # (Manual) Monocytes # (Manual) Basophils # (Manual) Percent Retic PT 22.1 H INR 1.93 H APTT Heparin Anti-Xa Level 0.17 L POC ABG pH POC ABG pCO2 POC ABG pO2 Sodium Potassium Chloride Carbon Dioxide BUN Creatinine Glucose POC Glucose 196 H 318 H Calcium Phosphorus Iron TIBC Lactate Dehydrogenase Total Creatine Kinase NT-Pro-B Natriuret Pep Total Protein Albumin Inxdw-9-Xwgwuvouq Jxbzx-9-Olqdeznsq Beta Globulins PEP Interpretation Cholesterol LDL Cholesterol Direct Vitamin B12 Urine WBC (Auto) Urine Creatinine Crossmatch 04/19/16 04/20/16 04/20/16 17:27 03:55 03:55 WBC 18.5 H RBC 3.19 L Hgb 8.4 L Hct 25.7 L MCV 80 L MCH 26 L MCHC RDW 15.9 H Plt Count Lymph % (Auto) 4.3 L [place] % (Auto) 10.1 H Lymph # 0.8 L [place] # 1.9 H Baso # Seg Neutrophils % 85.2 H Seg Neuts % (Manual) Lymphocytes % (Manual) Monocytes % (Manual) Seg Neutrophils # 15.8 H Seg Neutrophils # Man Lymphocytes # (Manual) Monocytes # (Manual) Basophils # (Manual) Percent Retic PT 22.0 H INR 1.92 H APTT Heparin Anti-Xa Level 0.14 L POC ABG pH POC ABG pCO2 POC ABG pO2 Sodium Potassium Chloride Carbon Dioxide BUN Creatinine Glucose POC Glucose 230 H Calcium Phosphorus Iron TIBC Lactate Dehydrogenase Total Creatine Kinase NT-Pro-B Natriuret Pep Total Protein Albumin Gnnxf-2-Txmmohnxv Prbtp-8-Gdszfpyyy Beta Globulins PEP Interpretation Cholesterol LDL Cholesterol Direct Vitamin B12 Urine WBC (Auto) Urine Creatinine Crossmatch 04/20/16 04/20/16 04/20/16 03:55 04:16 05:52 WBC RBC Hgb Hct MCV MCH MCHC RDW Plt Count Lymph % (Auto) [place] % (Auto) Lymph # [place] # Baso # Seg Neutrophils % Seg Neuts % (Manual) Lymphocytes % (Manual) Monocytes % (Manual) Seg Neutrophils # Seg Neutrophils # Man Lymphocytes # (Manual) Monocytes # (Manual) Basophils # (Manual) Percent Retic PT INR APTT Heparin Anti-Xa Level POC ABG pH 7.474 H POC ABG pCO2 26.5 L POC ABG pO2 Sodium Potassium Chloride Carbon Dioxide 18 L BUN 38 H Creatinine 2.7 H D Glucose 159 H POC Glucose 214 H Calcium 8.0 L Phosphorus Iron TIBC Lactate Dehydrogenase Total Creatine Kinase NT-Pro-B Natriuret Pep Total Protein Albumin Vrnin-5-Ytxnfxzij Atomq-2-Gxazqhjou Beta Globulins PEP Interpretation Cholesterol LDL Cholesterol Direct Vitamin B12 Urine WBC (Auto) Urine Creatinine Crossmatch 04/20/16 04/20/16 04/20/16 10:32 11:27 11:50 WBC RBC Hgb Hct MCV MCH MCHC RDW Plt Count Lymph % (Auto) [place] % (Auto) Lymph # [place] # Baso # Seg Neutrophils % Seg Neuts % (Manual) Lymphocytes % (Manual) Monocytes % (Manual) Seg Neutrophils # Seg Neutrophils # Man Lymphocytes # (Manual) Monocytes # (Manual) Basophils # (Manual) Percent Retic PT INR APTT Heparin Anti-Xa Level POC ABG pH POC ABG pCO2 POC ABG pO2 Sodium Potassium Chloride Carbon Dioxide 20 L BUN 45 H Creatinine 3.0 H Glucose 215 H POC Glucose 248 H Calcium 8.0 L Phosphorus Iron TIBC Lactate Dehydrogenase Total Creatine Kinase NT-Pro-B Natriuret Pep Total Protein Albumin Zleut-0-Bxhjxndmx Rbgbl-2-Jwtbvkhzq Beta Globulins PEP Interpretation Cholesterol LDL Cholesterol Direct Vitamin B12 Urine WBC (Auto) Urine Creatinine 85.5 H Crossmatch 04/20/16 04/21/16 04/21/16 16:59 00:13 04:29 WBC RBC Hgb Hct MCV MCH MCHC RDW Plt Count Lymph % (Auto) [place] % (Auto) Lymph # [place] # Baso # Seg Neutrophils % Seg Neuts % (Manual) Lymphocytes % (Manual) Monocytes % (Manual) Seg Neutrophils # Seg Neutrophils # Man Lymphocytes # (Manual) Monocytes # (Manual) Basophils # (Manual) Percent Retic PT 18.1 H INR 1.50 H APTT Heparin Anti-Xa Level 0.10 L POC ABG pH POC ABG pCO2 POC ABG pO2 Sodium Potassium Chloride Carbon Dioxide BUN Creatinine Glucose POC Glucose 312 H 287 H Calcium Phosphorus Iron TIBC Lactate Dehydrogenase Total Creatine Kinase NT-Pro-B Natriuret Pep Total Protein Albumin Mymzj-3-Emcxbysup Kqcce-6-Dmcmzoqfs Beta Globulins PEP Interpretation Cholesterol LDL Cholesterol Direct Vitamin B12 Urine WBC (Auto) Urine Creatinine Crossmatch 04/21/16 04/21/16 04/21/16 04:29 04:29 04:55 WBC 15.4 H RBC 3.24 L Hgb 8.4 L Hct 25.6 L MCV 79 L MCH 26 L MCHC RDW 16.1 H Plt Count Lymph % (Auto) 6.8 L [place] % (Auto) 12.9 H Lymph # 1.0 L [place] # 2.0 H Baso # Seg Neutrophils % 79.8 H Seg Neuts % (Manual) Lymphocytes % (Manual) Monocytes % (Manual) Seg Neutrophils # 12.3 H Seg Neutrophils # Man Lymphocytes # (Manual) Monocytes # (Manual) Basophils # (Manual) Percent Retic PT INR APTT Heparin Anti-Xa Level POC ABG pH 7.512 H POC ABG pCO2 25.4 L POC ABG pO2 Sodium 135 L Potassium Chloride Carbon Dioxide 18 L BUN 57 H Creatinine 3.9 H Glucose 202 H POC Glucose Calcium 8.0 L Phosphorus Iron TIBC Lactate Dehydrogenase Total Creatine Kinase NT-Pro-B Natriuret Pep Total Protein Albumin Gbdnj-2-Deiztfhvd Rdbfg-2-Vpgvqfqtm Beta Globulins PEP Interpretation Cholesterol LDL Cholesterol Direct Vitamin B12 Urine WBC (Auto) Urine Creatinine Crossmatch 04/21/16 04/21/16 04/21/16 05:20 12:08 12:16 WBC RBC Hgb Hct MCV MCH MCHC RDW Plt Count Lymph % (Auto) [place] % (Auto) Lymph # [place] # Baso # Seg Neutrophils % Seg Neuts % (Manual) Lymphocytes % (Manual) Monocytes % (Manual) Seg Neutrophils # Seg Neutrophils # Man Lymphocytes # (Manual) Monocytes # (Manual) Basophils # (Manual) Percent Retic PT INR APTT Heparin Anti-Xa Level 0.16 L POC ABG pH POC ABG pCO2 POC ABG pO2 Sodium Potassium Chloride Carbon Dioxide BUN Creatinine Glucose POC Glucose 203 H 221 H Calcium Phosphorus Iron TIBC Lactate Dehydrogenase Total Creatine Kinase NT-Pro-B Natriuret Pep Total Protein Albumin Rehqg-6-Tsjbmmlch Ixomq-0-Yfyudcupx Beta Globulins PEP Interpretation Cholesterol LDL Cholesterol Direct Vitamin B12 Urine WBC (Auto) Urine Creatinine Crossmatch 04/21/16 04/22/16 04/22/16 17:22 05:01 05:20 WBC RBC Hgb Hct MCV MCH MCHC RDW Plt Count Lymph % (Auto) [place] % (Auto) Lymph # [place] # Baso # Seg Neutrophils % Seg Neuts % (Manual) Lymphocytes % (Manual) Monocytes % (Manual) Seg Neutrophils # Seg Neutrophils # Man Lymphocytes # (Manual) Monocytes # (Manual) Basophils # (Manual) Percent Retic PT 17.5 H INR 1.44 H APTT Heparin Anti-Xa Level POC ABG pH 7.460 H POC ABG pCO2 27.9 L POC ABG pO2 Sodium Potassium Chloride Carbon Dioxide BUN Creatinine Glucose POC Glucose 189 H Calcium Phosphorus Iron TIBC Lactate Dehydrogenase Total Creatine Kinase NT-Pro-B Natriuret Pep Total Protein Albumin Vuvho-2-Avekjpnrs Bxexw-8-Lcruqqcis Beta Globulins PEP Interpretation Cholesterol LDL Cholesterol Direct Vitamin B12 Urine WBC (Auto) Urine Creatinine Crossmatch 04/22/16 04/22/16 04/22/16 05:43 06:40 08:08 WBC RBC Hgb Hct MCV MCH MCHC RDW Plt Count Lymph % (Auto) [place] % (Auto) Lymph # [place] # Baso # Seg Neutrophils % Seg Neuts % (Manual) Lymphocytes % (Manual) Monocytes % (Manual) Seg Neutrophils # Seg Neutrophils # Man Lymphocytes # (Manual) Monocytes # (Manual) Basophils # (Manual) Percent Retic PT INR APTT Heparin Anti-Xa Level POC ABG pH POC ABG pCO2 POC ABG pO2 Sodium Potassium Chloride Carbon Dioxide BUN Creatinine Glucose POC Glucose 56 L 136 H 134 H Calcium Phosphorus Iron TIBC Lactate Dehydrogenase Total Creatine Kinase NT-Pro-B Natriuret Pep Total Protein Albumin Ldaxu-5-Rwqyvmeem Dqgux-8-Hkyxwbnij Beta Globulins PEP Interpretation Cholesterol LDL Cholesterol Direct Vitamin B12 Urine WBC (Auto) Urine Creatinine Crossmatch 04/22/16 04/22/16 04/22/16 11:18 12:10 18:17 WBC RBC Hgb Hct MCV MCH MCHC RDW Plt Count Lymph % (Auto) [place] % (Auto) Lymph # [place] # Baso # Seg Neutrophils % Seg Neuts % (Manual) Lymphocytes % (Manual) Monocytes % (Manual) Seg Neutrophils # Seg Neutrophils # Man Lymphocytes # (Manual) Monocytes # (Manual) Basophils # (Manual) Percent Retic PT INR APTT Heparin Anti-Xa Level 0.12 L POC ABG pH POC ABG pCO2 POC ABG pO2 Sodium Potassium Chloride Carbon Dioxide BUN Creatinine Glucose POC Glucose 142 H 227 H Calcium Phosphorus Iron TIBC Lactate Dehydrogenase Total Creatine Kinase NT-Pro-B Natriuret Pep Total Protein Albumin Qotmb-6-Jnzsflwgd Fxndn-3-Xgdbthttw Beta Globulins PEP Interpretation Cholesterol LDL Cholesterol Direct Vitamin B12 Urine WBC (Auto) Urine Creatinine Crossmatch 04/22/16 04/22/16 04/23/16 22:28 23:47 04:49 WBC RBC Hgb Hct MCV MCH MCHC RDW Plt Count Lymph % (Auto) [place] % (Auto) Lymph # [place] # Baso # Seg Neutrophils % Seg Neuts % (Manual) Lymphocytes % (Manual) Monocytes % (Manual) Seg Neutrophils # Seg Neutrophils # Man Lymphocytes # (Manual) Monocytes # (Manual) Basophils # (Manual) Percent Retic PT INR APTT Heparin Anti-Xa Level 0.16 L POC ABG pH POC ABG pCO2 32.6 L POC ABG pO2 122 H Sodium Potassium Chloride Carbon Dioxide BUN Creatinine Glucose POC Glucose 266 H Calcium Phosphorus Iron TIBC Lactate Dehydrogenase Total Creatine Kinase NT-Pro-B Natriuret Pep Total Protein Albumin Ynahg-4-Kgdgkabfw Mmhxs-3-Ftnvuipxg Beta Globulins PEP Interpretation Cholesterol LDL Cholesterol Direct Vitamin B12 Urine WBC (Auto) Urine Creatinine Crossmatch 04/23/16 04/23/16 04/23/16 05:41 08:05 08:34 WBC RBC Hgb Hct MCV MCH MCHC RDW Plt Count Lymph % (Auto) [place] % (Auto) Lymph # [place] # Baso # Seg Neutrophils % Seg Neuts % (Manual) Lymphocytes % (Manual) Monocytes % (Manual) Seg Neutrophils # Seg Neutrophils # Man Lymphocytes # (Manual) Monocytes # (Manual) Basophils # (Manual) Percent Retic PT INR APTT Heparin Anti-Xa Level POC ABG pH POC ABG pCO2 POC ABG pO2 Sodium Potassium Chloride 109.5 H Carbon Dioxide 21 L BUN 23 H Creatinine Glucose 227 H POC Glucose 227 H 224 H Calcium 8.2 L Phosphorus Iron TIBC Lactate Dehydrogenase Total Creatine Kinase NT-Pro-B Natriuret Pep Total Protein Albumin Vewka-4-Nmsegmije Bkpyh-8-Fgxwojaul Beta Globulins PEP Interpretation Cholesterol LDL Cholesterol Direct Vitamin B12 Urine WBC (Auto) Urine Creatinine Crossmatch 04/23/16 04/23/16 04/23/16 10:45 11:37 22:49 WBC RBC Hgb Hct MCV MCH MCHC RDW Plt Count Lymph % (Auto) [place] % (Auto) Lymph # [place] # Baso # Seg Neutrophils % Seg Neuts % (Manual) Lymphocytes % (Manual) Monocytes % (Manual) Seg Neutrophils # Seg Neutrophils # Man Lymphocytes # (Manual) Monocytes # (Manual) Basophils # (Manual) Percent Retic PT 15.9 H INR 1.28 H APTT Heparin Anti-Xa Level 0.12 L POC ABG pH POC ABG pCO2 POC ABG pO2 Sodium Potassium Chloride Carbon Dioxide BUN Creatinine Glucose POC Glucose 256 H Calcium Phosphorus Iron TIBC Lactate Dehydrogenase Total Creatine Kinase NT-Pro-B Natriuret Pep Total Protein Albumin Wtnpx-6-Mgwzsysmb Qfwik-9-Elelwackp Beta Globulins PEP Interpretation Cholesterol LDL Cholesterol Direct Vitamin B12 Urine WBC (Auto) Urine Creatinine Crossmatch 04/23/16 04/24/16 04/24/16 23:59 05:29 06:03 WBC RBC Hgb Hct MCV MCH MCHC RDW Plt Count Lymph % (Auto) [place] % (Auto) Lymph # [place] # Baso # Seg Neutrophils % Seg Neuts % (Manual) Lymphocytes % (Manual) Monocytes % (Manual) Seg Neutrophils # Seg Neutrophils # Man Lymphocytes # (Manual) Monocytes # (Manual) Basophils # (Manual) Percent Retic PT INR APTT Heparin Anti-Xa Level POC ABG pH 7.464 H POC ABG pCO2 32.4 L POC ABG pO2 115 H Sodium Potassium Chloride Carbon Dioxide BUN Creatinine Glucose POC Glucose 176 H 256 H Calcium Phosphorus Iron TIBC Lactate Dehydrogenase Total Creatine Kinase NT-Pro-B Natriuret Pep Total Protein Albumin Usflj-4-Sitfjdosd Zlysj-3-Hegmaejlr Beta Globulins PEP Interpretation Cholesterol LDL Cholesterol Direct Vitamin B12 Urine WBC (Auto) Urine Creatinine Crossmatch 04/24/16 04/24/16 04/24/16 07:59 12:10 17:17 WBC RBC Hgb Hct MCV MCH MCHC RDW Plt Count Lymph % (Auto) [place] % (Auto) Lymph # [place] # Baso # Seg Neutrophils % Seg Neuts % (Manual) Lymphocytes % (Manual) Monocytes % (Manual) Seg Neutrophils # Seg Neutrophils # Man Lymphocytes # (Manual) Monocytes # (Manual) Basophils # (Manual) Percent Retic PT INR APTT Heparin Anti-Xa Level 0.18 L POC ABG pH POC ABG pCO2 POC ABG pO2 Sodium Potassium Chloride Carbon Dioxide BUN Creatinine Glucose POC Glucose 304 H 325 H Calcium Phosphorus Iron TIBC Lactate Dehydrogenase Total Creatine Kinase NT-Pro-B Natriuret Pep Total Protein Albumin Qgehe-5-Dpboratur Xaivp-7-[place] Beta Globulins PEP Interpretation Cholesterol LDL Cholesterol Direct Vitamin B12 Urine WBC (Auto) Urine Creatinine Crossmatch 04/25/16 04/25/16 04/25/16 00:52 06:40 06:44 WBC RBC Hgb Hct MCV MCH MCHC RDW Plt Count Lymph % (Auto) [place] % (Auto) Lymph # [place] # Baso # Seg Neutrophils % Seg Neuts % (Manual) Lymphocytes % (Manual) Monocytes % (Manual) Seg Neutrophils # Seg Neutrophils # Man Lymphocytes # (Manual) Monocytes # (Manual) Basophils # (Manual) Percent Retic PT INR APTT Heparin Anti-Xa Level 0.11 L POC ABG pH POC ABG pCO2 POC ABG pO2 Sodium Potassium Chloride Carbon Dioxide BUN Creatinine Glucose POC Glucose 212 H 184 H Calcium Phosphorus Iron TIBC Lactate Dehydrogenase Total Creatine Kinase NT-Pro-B Natriuret Pep Total Protein Albumin Gjlzb-5-Kvobzrsla Gbxqp-3-Vxejqimdv Beta Globulins PEP Interpretation Cholesterol LDL Cholesterol Direct Vitamin B12 Urine WBC (Auto) Urine Creatinine Crossmatch 04/25/16 04/25/16 04/25/16 11:40 13:26 17:27 WBC RBC Hgb Hct MCV MCH MCHC RDW Plt Count Lymph % (Auto) [place] % (Auto) Lymph # [place] # Baso # Seg Neutrophils % Seg Neuts % (Manual) Lymphocytes % (Manual) Monocytes % (Manual) Seg Neutrophils # Seg Neutrophils # Man Lymphocytes # (Manual) Monocytes # (Manual) Basophils # (Manual) Percent Retic PT INR APTT Heparin Anti-Xa Level 0.21 L POC ABG pH POC ABG pCO2 POC ABG pO2 Sodium Potassium Chloride Carbon Dioxide BUN Creatinine Glucose POC Glucose 206 H 204 H Calcium Phosphorus Iron TIBC Lactate Dehydrogenase Total Creatine Kinase NT-Pro-B Natriuret Pep Total Protein Albumin Dpihl-8-Zvrhgpfux Nfmsq-4-Nijvfuoez Beta Globulins PEP Interpretation Cholesterol LDL Cholesterol Direct Vitamin B12 Urine WBC (Auto) Urine Creatinine Crossmatch 04/25/16 04/26/16 04/26/16 23:46 06:31 11:51 WBC RBC Hgb Hct MCV MCH MCHC RDW Plt Count Lymph % (Auto) [place] % (Auto) Lymph # [place] # Baso # Seg Neutrophils % Seg Neuts % (Manual) Lymphocytes % (Manual) Monocytes % (Manual) Seg Neutrophils # Seg Neutrophils # Man Lymphocytes # (Manual) Monocytes # (Manual) Basophils # (Manual) Percent Retic PT INR APTT Heparin Anti-Xa Level POC ABG pH POC ABG pCO2 POC ABG pO2 Sodium Potassium Chloride Carbon Dioxide BUN Creatinine Glucose POC Glucose 162 H 148 H 178 H Calcium Phosphorus Iron TIBC Lactate Dehydrogenase Total Creatine Kinase NT-Pro-B Natriuret Pep Total Protein Albumin Oummz-3-Pepgbcwzi Hawwn-1-Utoafkcsw Beta Globulins PEP Interpretation Cholesterol LDL Cholesterol Direct Vitamin B12 Urine WBC (Auto) Urine Creatinine Crossmatch 04/26/16 04/26/16 04/26/16 12:17 16:16 18:14 WBC RBC Hgb Hct MCV MCH MCHC RDW Plt Count Lymph % (Auto) [place] % (Auto) Lymph # [place] # Baso # Seg Neutrophils % Seg Neuts % (Manual) Lymphocytes % (Manual) Monocytes % (Manual) Seg Neutrophils # Seg Neutrophils # Man Lymphocytes # (Manual) Monocytes # (Manual) Basophils # (Manual) Percent Retic PT INR APTT Heparin Anti-Xa Level POC ABG pH 7.513 H POC ABG pCO2 POC ABG pO2 76 L Sodium Potassium Chloride Carbon Dioxide BUN Creatinine Glucose POC Glucose 186 H 172 H Calcium Phosphorus Iron TIBC Lactate Dehydrogenase Total Creatine Kinase NT-Pro-B Natriuret Pep Total Protein Albumin Pxnlo-1-Mimgnikxi Vzboa-6-Nvncmkjip Beta Globulins PEP Interpretation Cholesterol LDL Cholesterol Direct Vitamin B12 Urine WBC (Auto) Urine Creatinine Crossmatch 04/26/16 04/26/16 04/27/16 19:27 23:28 04:21 WBC 13.1 H RBC 2.99 L Hgb 7.8 L Hct 24.0 L MCV 81 L MCH 26 L MCHC RDW 16.7 H Plt Count 486 H Lymph % (Auto) 12.5 L [place] % (Auto) 7.9 H Lymph # [place] # 1.0 H Baso # Seg Neutrophils % 77.5 H Seg Neuts % (Manual) Lymphocytes % (Manual) Monocytes % (Manual) Seg Neutrophils # 10.2 H Seg Neutrophils # Man Lymphocytes # (Manual) Monocytes # (Manual) Basophils # (Manual) Percent Retic PT INR APTT Heparin Anti-Xa Level 0.22 L POC ABG pH POC ABG pCO2 POC ABG pO2 Sodium Potassium Chloride Carbon Dioxide BUN Creatinine Glucose POC Glucose 141 H Calcium Phosphorus Iron TIBC Lactate Dehydrogenase Total Creatine Kinase NT-Pro-B Natriuret Pep Total Protein Albumin Ozpxr-6-Dqgogwvng Quoee-2-Vcuqhnfze Beta Globulins PEP Interpretation Cholesterol LDL Cholesterol Direct Vitamin B12 Urine WBC (Auto) Urine Creatinine Crossmatch 04/27/16 04/27/16 04/27/16 04:21 05:46 11:04 WBC RBC Hgb Hct MCV MCH MCHC RDW Plt Count Lymph % (Auto) [place] % (Auto) Lymph # [place] # Baso # Seg Neutrophils % Seg Neuts % (Manual) Lymphocytes % (Manual) Monocytes % (Manual) Seg Neutrophils # Seg Neutrophils # Man Lymphocytes # (Manual) Monocytes # (Manual) Basophils # (Manual) Percent Retic PT INR APTT Heparin Anti-Xa Level POC ABG pH 7.489 H POC ABG pCO2 POC ABG pO2 71 L Sodium Potassium Chloride Carbon Dioxide BUN Creatinine 0.6 L Glucose 187 H POC Glucose 192 H Calcium 8.0 L Phosphorus Iron TIBC Lactate Dehydrogenase Total Creatine Kinase NT-Pro-B Natriuret Pep Total Protein 6.0 L Albumin 2.0 L Aoqnb-9-Bxlnsvefp Gqjls-7-Atosulwhf Beta Globulins PEP Interpretation Cholesterol LDL Cholesterol Direct Vitamin B12 Urine WBC (Auto) Urine Creatinine Crossmatch 04/27/16 04/27/16 04/27/16 14:12 21:58 23:38 WBC RBC Hgb Hct MCV MCH MCHC RDW Plt Count Lymph % (Auto) [place] % (Auto) Lymph # [place] # Baso # Seg Neutrophils % Seg Neuts % (Manual) Lymphocytes % (Manual) Monocytes % (Manual) Seg Neutrophils # Seg Neutrophils # Man Lymphocytes # (Manual) Monocytes # (Manual) Basophils # (Manual) Percent Retic PT INR APTT Heparin Anti-Xa Level 0.24 L POC ABG pH POC ABG pCO2 POC ABG pO2 Sodium Potassium Chloride Carbon Dioxide BUN Creatinine Glucose POC Glucose 216 H 181 H Calcium Phosphorus Iron TIBC Lactate Dehydrogenase Total Creatine Kinase NT-Pro-B Natriuret Pep Total Protein Albumin Nojmz-7-Aydjeerte Tyczk-1-Lniogavun Beta Globulins PEP Interpretation Cholesterol LDL Cholesterol Direct Vitamin B12 Urine WBC (Auto) Urine Creatinine Crossmatch 04/28/16 04/28/16 04/28/16 04:28 05:52 11:31 WBC RBC Hgb Hct MCV MCH MCHC RDW Plt Count Lymph % (Auto) [place] % (Auto) Lymph # [place] # Baso # Seg Neutrophils % Seg Neuts % (Manual) Lymphocytes % (Manual) Monocytes % (Manual) Seg Neutrophils # Seg Neutrophils # Man Lymphocytes # (Manual) Monocytes # (Manual) Basophils # (Manual) Percent Retic PT INR APTT Heparin Anti-Xa Level POC ABG pH 7.524 H POC ABG pCO2 POC ABG pO2 Sodium Potassium Chloride Carbon Dioxide BUN Creatinine Glucose POC Glucose 254 H 280 H Calcium Phosphorus Iron TIBC Lactate Dehydrogenase Total Creatine Kinase NT-Pro-B Natriuret Pep Total Protein Albumin Vmcgd-3-Qqzicxwaf Tjtey-8-Nirvyikev Beta Globulins PEP Interpretation Cholesterol LDL Cholesterol Direct Vitamin B12 Urine WBC (Auto) Urine Creatinine Crossmatch 04/28/16 04/28/16 04/29/16 17:30 19:52 00:47 WBC RBC Hgb Hct MCV MCH MCHC RDW Plt Count Lymph % (Auto) [place] % (Auto) Lymph # [place] # Baso # Seg Neutrophils % Seg Neuts % (Manual) Lymphocytes % (Manual) Monocytes % (Manual) Seg Neutrophils # Seg Neutrophils # Man Lymphocytes # (Manual) Monocytes # (Manual) Basophils # (Manual) Percent Retic PT INR APTT Heparin Anti-Xa Level 0.15 L POC ABG pH POC ABG pCO2 POC ABG pO2 Sodium Potassium Chloride Carbon Dioxide BUN Creatinine Glucose POC Glucose 208 H 265 H Calcium Phosphorus Iron TIBC Lactate Dehydrogenase Total Creatine Kinase NT-Pro-B Natriuret Pep Total Protein Albumin Cbjus-8-Nijjdeoqx Eypxt-0-Kctllvffl Beta Globulins PEP Interpretation Cholesterol LDL Cholesterol Direct Vitamin B12 Urine WBC (Auto) Urine Creatinine Crossmatch 04/29/16 04/29/16 04/29/16 04:00 04:00 04:29 WBC 13.4 H RBC 2.56 L Hgb 6.9 L Hct 20.6 L MCV 81 L MCH 27 L MCHC RDW 16.2 H Plt Count 513 H Lymph % (Auto) 10.0 L [place] % (Auto) 12.0 H Lymph # [place] # 1.6 H Baso # Seg Neutrophils % 77.1 H Seg Neuts % (Manual) Lymphocytes % (Manual) Monocytes % (Manual) Seg Neutrophils # 10.4 H Seg Neutrophils # Man Lymphocytes # (Manual) Monocytes # (Manual) Basophils # (Manual) Percent Retic PT INR APTT Heparin Anti-Xa Level POC ABG pH 7.501 H POC ABG pCO2 POC ABG pO2 76 L Sodium Potassium Chloride Carbon Dioxide BUN 27 H Creatinine Glucose 204 H POC Glucose Calcium 8.1 L Phosphorus Iron TIBC Lactate Dehydrogenase Total Creatine Kinase NT-Pro-B Natriuret Pep Total Protein Albumin Hzfxm-4-Klupqirqx Dxkql-9-Ywvcvmycq Beta Globulins PEP Interpretation Cholesterol LDL Cholesterol Direct Vitamin B12 Urine WBC (Auto) Urine Creatinine Crossmatch 04/29/16 04/29/16 04/29/16 06:03 10:05 10:16 WBC RBC Hgb Hct MCV MCH MCHC RDW Plt Count Lymph % (Auto) [place] % (Auto) Lymph # [place] # Baso # Seg Neutrophils % Seg Neuts % (Manual) Lymphocytes % (Manual) Monocytes % (Manual) Seg Neutrophils # Seg Neutrophils # Man Lymphocytes # (Manual) Monocytes # (Manual) Basophils # (Manual) Percent Retic 3.68 H PT INR APTT Heparin Anti-Xa Level POC ABG pH POC ABG pCO2 POC ABG pO2 Sodium Potassium Chloride Carbon Dioxide BUN Creatinine Glucose POC Glucose 192 H Calcium Phosphorus Iron TIBC Lactate Dehydrogenase Total Creatine Kinase NT-Pro-B Natriuret Pep Total Protein Albumin Dishp-2-Wbjdzsfsl Gozlg-2-Gylcaqpak Beta Globulins PEP Interpretation Cholesterol LDL Cholesterol Direct Vitamin B12 Urine WBC (Auto) Urine Creatinine Crossmatch See Detail 04/29/16 04/29/16 04/29/16 10:16 10:16 11:23 WBC RBC Hgb Hct MCV MCH MCHC RDW Plt Count Lymph % (Auto) [place] % (Auto) Lymph # [place] # Baso # Seg Neutrophils % Seg Neuts % (Manual) Lymphocytes % (Manual) Monocytes % (Manual) Seg Neutrophils # Seg Neutrophils # Man Lymphocytes # (Manual) Monocytes # (Manual) Basophils # (Manual) Percent Retic PT INR APTT Heparin Anti-Xa Level POC ABG pH POC ABG pCO2 POC ABG pO2 Sodium Potassium Chloride Carbon Dioxide BUN Creatinine Glucose POC Glucose 116 H Calcium Phosphorus Iron 10 L TIBC 138 L Lactate Dehydrogenase 204 H Total Creatine Kinase NT-Pro-B Natriuret Pep Total Protein Albumin Mkrad-9-Xotkilaij Bevfu-7-Rjlmlbwcn Beta Globulins PEP Interpretation Cholesterol LDL Cholesterol Direct Vitamin B12 1005 H Urine WBC (Auto) Urine Creatinine Crossmatch 04/29/16 04/29/16 04/30/16 17:34 23:19 03:19 WBC RBC Hgb 9.0 L Hct 26.7 L D MCV MCH MCHC RDW Plt Count Lymph % (Auto) [place] % (Auto) Lymph # [place] # Baso # Seg Neutrophils % Seg Neuts % (Manual) Lymphocytes % (Manual) Monocytes % (Manual) Seg Neutrophils # Seg Neutrophils # Man Lymphocytes # (Manual) Monocytes # (Manual) Basophils # (Manual) Percent Retic PT INR APTT Heparin Anti-Xa Level POC ABG pH POC ABG pCO2 POC ABG pO2 Sodium Potassium Chloride Carbon Dioxide BUN Creatinine Glucose POC Glucose 142 H 242 H Calcium Phosphorus Iron TIBC Lactate Dehydrogenase Total Creatine Kinase NT-Pro-B Natriuret Pep Total Protein Albumin Sktsb-8-Vedwvrmag Cwukr-0-Sdlhmbpwg Beta Globulins PEP Interpretation Cholesterol LDL Cholesterol Direct Vitamin B12 Urine WBC (Auto) Urine Creatinine Crossmatch 04/30/16 04/30/16 04/30/16 04:10 04:10 04:32 WBC 13.8 H RBC 3.54 L Hgb 9.3 L Hct 29.1 L MCV 82 L MCH 26 L MCHC RDW 16.5 H Plt Count 535 H Lymph % (Auto) 7.5 L [place] % (Auto) 13.8 H Lymph # 1.0 L [place] # 1.9 H Baso # Seg Neutrophils % 78.0 H Seg Neuts % (Manual) Lymphocytes % (Manual) Monocytes % (Manual) Seg Neutrophils # 10.7 H Seg Neutrophils # Man Lymphocytes # (Manual) Monocytes # (Manual) Basophils # (Manual) Percent Retic PT INR APTT Heparin Anti-Xa Level POC ABG pH 7.519 H POC ABG pCO2 33.6 L POC ABG pO2 79 L Sodium 146 H Potassium Chloride Carbon Dioxide BUN Creatinine 0.7 L Glucose 242 H POC Glucose Calcium 8.3 L Phosphorus Iron TIBC Lactate Dehydrogenase Total Creatine Kinase NT-Pro-B Natriuret Pep Total Protein Albumin Kufbl-0-Cnztyjbvo Xzhlm-6-Ygvfceukz Beta Globulins PEP Interpretation Cholesterol LDL Cholesterol Direct Vitamin B12 Urine WBC (Auto) Urine Creatinine Crossmatch 04/30/16 04/30/16 04/30/16 05:33 11:23 17:26 WBC RBC Hgb Hct MCV MCH MCHC RDW Plt Count Lymph % (Auto) [place] % (Auto) Lymph # [place] # Baso # Seg Neutrophils % Seg Neuts % (Manual) Lymphocytes % (Manual) Monocytes % (Manual) Seg Neutrophils # Seg Neutrophils # Man Lymphocytes # (Manual) Monocytes # (Manual) Basophils # (Manual) Percent Retic PT INR APTT Heparin Anti-Xa Level POC ABG pH POC ABG pCO2 POC ABG pO2 Sodium Potassium Chloride Carbon Dioxide BUN Creatinine Glucose POC Glucose 242 H 305 H 281 H Calcium Phosphorus Iron TIBC Lactate Dehydrogenase Total Creatine Kinase NT-Pro-B Natriuret Pep Total Protein Albumin Oywby-9-Xarihnoiv Pkqax-8-Eelwlntpw Beta Globulins PEP Interpretation Cholesterol LDL Cholesterol Direct Vitamin B12 Urine WBC (Auto) Urine Creatinine Crossmatch 04/30/16 05/01/16 05/01/16 23:53 04:00 04:00 WBC 15.9 H RBC 2.99 L Hgb 7.9 L Hct 24.4 L MCV 82 L MCH 26 L MCHC RDW 16.9 H Plt Count 481 H Lymph % (Auto) 9.3 L [place] % (Auto) 15.0 H Lymph # [place] # 2.4 H Baso # Seg Neutrophils % 74.9 H Seg Neuts % (Manual) Lymphocytes % (Manual) Monocytes % (Manual) Seg Neutrophils # 11.9 H Seg Neutrophils # Man Lymphocytes # (Manual) Monocytes # (Manual) Basophils # (Manual) Percent Retic PT INR APTT Heparin Anti-Xa Level POC ABG pH POC ABG pCO2 POC ABG pO2 Sodium 147 H Potassium Chloride 107.8 H Carbon Dioxide BUN 22 H Creatinine 0.7 L Glucose 229 H POC Glucose 207 H Calcium 8.2 L Phosphorus Iron TIBC Lactate Dehydrogenase Total Creatine Kinase NT-Pro-B Natriuret Pep Total Protein Albumin Gxefd-9-Opobixhbp Crjxr-7-Ddjokbvvs Beta Globulins PEP Interpretation Cholesterol LDL Cholesterol Direct Vitamin B12 Urine WBC (Auto) Urine Creatinine Crossmatch 05/01/16 05/01/16 05/01/16 05:12 07:41 12:33 WBC RBC Hgb Hct MCV MCH MCHC RDW Plt Count Lymph % (Auto) [place] % (Auto) Lymph # [place] # Baso # Seg Neutrophils % Seg Neuts % (Manual) Lymphocytes % (Manual) Monocytes % (Manual) Seg Neutrophils # Seg Neutrophils # Man Lymphocytes # (Manual) Monocytes # (Manual) Basophils # (Manual) Percent Retic PT INR APTT Heparin Anti-Xa Level 0.16 L POC ABG pH POC ABG pCO2 POC ABG pO2 Sodium Potassium Chloride Carbon Dioxide BUN Creatinine Glucose POC Glucose 284 H 186 H Calcium Phosphorus Iron TIBC Lactate Dehydrogenase Total Creatine Kinase NT-Pro-B Natriuret Pep Total Protein Albumin Gyfka-4-Ylutcydzh Queiq-0-Gqbswnynq Beta Globulins PEP Interpretation Cholesterol LDL Cholesterol Direct Vitamin B12 Urine WBC (Auto) Urine Creatinine Crossmatch 05/01/16 05/01/16 05/02/16 17:24 23:19 04:48 WBC 17.2 H RBC 3.09 L Hgb 8.1 L Hct 25.5 L MCV 83 L MCH 26 L MCHC RDW 17.3 H Plt Count 507 H Lymph % (Auto) 8.0 L [place] % (Auto) 13.6 H Lymph # [place] # 2.3 H Baso # Seg Neutrophils % 77.5 H Seg Neuts % (Manual) Lymphocytes % (Manual) Monocytes % (Manual) Seg Neutrophils # 13.4 H Seg Neutrophils # Man Lymphocytes # (Manual) Monocytes # (Manual) Basophils # (Manual) Percent Retic PT INR APTT Heparin Anti-Xa Level POC ABG pH POC ABG pCO2 POC ABG pO2 Sodium Potassium Chloride Carbon Dioxide BUN Creatinine Glucose POC Glucose 171 H 132 H Calcium Phosphorus Iron TIBC Lactate Dehydrogenase Total Creatine Kinase NT-Pro-B Natriuret Pep Total Protein Albumin Wzljr-8-Cxydxiyuf Whvxv-9-Jdxkneyux Beta Globulins PEP Interpretation Cholesterol LDL Cholesterol Direct Vitamin B12 Urine WBC (Auto) Urine Creatinine Crossmatch 05/02/16 05/02/16 05/02/16 04:48 04:48 05:42 WBC RBC Hgb Hct MCV MCH MCHC RDW Plt Count Lymph % (Auto) [place] % (Auto) Lymph # [place] # Baso # Seg Neutrophils % Seg Neuts % (Manual) Lymphocytes % (Manual) Monocytes % (Manual) Seg Neutrophils # Seg Neutrophils # Man Lymphocytes # (Manual) Monocytes # (Manual) Basophils # (Manual) Percent Retic PT INR APTT Heparin Anti-Xa Level 0.19 L POC ABG pH POC ABG pCO2 POC ABG pO2 Sodium 149 H Potassium Chloride 109.9 H Carbon Dioxide BUN 24 H Creatinine Glucose 224 H POC Glucose 253 H Calcium 8.2 L Phosphorus Iron TIBC Lactate Dehydrogenase Total Creatine Kinase NT-Pro-B Natriuret Pep Total Protein Albumin Ogdpx-4-Xwcieplsk Domgp-3-Bcalkkslj Beta Globulins PEP Interpretation Cholesterol LDL Cholesterol Direct Vitamin B12 Urine WBC (Auto) Urine Creatinine Crossmatch 05/02/16 05/02/16 05/02/16 12:01 16:40 23:35 WBC RBC Hgb Hct MCV MCH MCHC RDW Plt Count Lymph % (Auto) [place] % (Auto) Lymph # [place] # Baso # Seg Neutrophils % Seg Neuts % (Manual) Lymphocytes % (Manual) Monocytes % (Manual) Seg Neutrophils # Seg Neutrophils # Man Lymphocytes # (Manual) Monocytes # (Manual) Basophils # (Manual) Percent Retic PT INR APTT Heparin Anti-Xa Level POC ABG pH POC ABG pCO2 POC ABG pO2 Sodium Potassium Chloride Carbon Dioxide BUN Creatinine Glucose POC Glucose 197 H 126 H 303 H Calcium Phosphorus Iron TIBC Lactate Dehydrogenase Total Creatine Kinase NT-Pro-B Natriuret Pep Total Protein Albumin Vkbok-0-Gwbiqjuxy Obcir-9-Ubwnulawv Beta Globulins PEP Interpretation Cholesterol LDL Cholesterol Direct Vitamin B12 Urine WBC (Auto) Urine Creatinine Crossmatch 05/03/16 05/03/16 05/03/16 04:31 04:31 04:31 WBC 19.1 H RBC 3.15 L Hgb 8.6 L Hct 25.7 L MCV 82 L MCH MCHC RDW 17.4 H Plt Count 525 H Lymph % (Auto) [place] % (Auto) Lymph # [place] # Baso # Seg Neutrophils % Seg Neuts % (Manual) Lymphocytes % (Manual) 10.0 L Monocytes % (Manual) 13.0 H Seg Neutrophils # Seg Neutrophils # Man 13.2 H Lymphocytes # (Manual) Monocytes # (Manual) 2.5 H Basophils # (Manual) 0.2 H Percent Retic PT INR APTT Heparin Anti-Xa Level 0.16 L POC ABG pH POC ABG pCO2 POC ABG pO2 Sodium 151 H Potassium Chloride 112.9 H Carbon Dioxide BUN 24 H Creatinine 0.7 L Glucose 303 H POC Glucose Calcium Phosphorus Iron TIBC Lactate Dehydrogenase Total Creatine Kinase NT-Pro-B Natriuret Pep Total Protein Albumin Dibzj-5-Fliqzztol Vixgc-7-Ffeghqdkt Beta Globulins PEP Interpretation Cholesterol LDL Cholesterol Direct Vitamin B12 Urine WBC (Auto) Urine Creatinine Crossmatch 05/03/16 05/03/16 05/04/16 12:08 18:05 00:11 WBC RBC Hgb Hct MCV MCH MCHC RDW Plt Count Lymph % (Auto) [place] % (Auto) Lymph # [place] # Baso # Seg Neutrophils % Seg Neuts % (Manual) Lymphocytes % (Manual) Monocytes % (Manual) Seg Neutrophils # Seg Neutrophils # Man Lymphocytes # (Manual) Monocytes # (Manual) Basophils # (Manual) Percent Retic PT INR APTT Heparin Anti-Xa Level POC ABG pH POC ABG pCO2 POC ABG pO2 Sodium Potassium Chloride Carbon Dioxide BUN Creatinine Glucose POC Glucose 452 H 370 H 374 H Calcium Phosphorus Iron TIBC Lactate Dehydrogenase Total Creatine Kinase NT-Pro-B Natriuret Pep Total Protein Albumin Aekay-3-Lsdqrngyf Ejmgm-0-Ysygevkfp Beta Globulins PEP Interpretation Cholesterol LDL Cholesterol Direct Vitamin B12 Urine WBC (Auto) Urine Creatinine Crossmatch 05/04/16 05/04/16 05/04/16 04:31 04:31 04:31 WBC 19.8 H RBC 2.90 L Hgb 7.8 L Hct 23.8 L MCV 82 L MCH 27 L MCHC RDW 17.9 H Plt Count 504 H Lymph % (Auto) [place] % (Auto) Lymph # [place] # Baso # Seg Neutrophils % Seg Neuts % (Manual) Lymphocytes % (Manual) 11.0 L Monocytes % (Manual) 8.0 H Seg Neutrophils # Seg Neutrophils # Man 13.3 H Lymphocytes # (Manual) Monocytes # (Manual) 1.6 H Basophils # (Manual) Percent Retic PT INR APTT Heparin Anti-Xa Level 0.15 L POC ABG pH POC ABG pCO2 POC ABG pO2 Sodium 146 H Potassium Chloride Carbon Dioxide BUN 30 H Creatinine 0.7 L Glucose 321 H POC Glucose Calcium 8.3 L Phosphorus Iron TIBC Lactate Dehydrogenase Total Creatine Kinase NT-Pro-B Natriuret Pep Total Protein Albumin Jllct-8-Eejrjhhyg Wzlwh-1-Ffhftavnb Beta Globulins PEP Interpretation Cholesterol LDL Cholesterol Direct Vitamin B12 Urine WBC (Auto) Urine Creatinine Crossmatch 05/04/16 05/04/16 05/04/16 10:20 11:57 17:36 WBC RBC Hgb Hct MCV MCH MCHC RDW Plt Count Lymph % (Auto) [place] % (Auto) Lymph # [place] # Baso # Seg Neutrophils % Seg Neuts % (Manual) Lymphocytes % (Manual) Monocytes % (Manual) Seg Neutrophils # Seg Neutrophils # Man Lymphocytes # (Manual) Monocytes # (Manual) Basophils # (Manual) Percent Retic PT INR APTT Heparin Anti-Xa Level POC ABG pH POC ABG pCO2 POC ABG pO2 Sodium Potassium Chloride Carbon Dioxide BUN Creatinine Glucose POC Glucose 303 H 271 H Calcium Phosphorus Iron TIBC Lactate Dehydrogenase Total Creatine Kinase NT-Pro-B Natriuret Pep Total Protein Albumin Zrukg-1-Dgisuwbjz Eztxm-2-Odhkxkcuy Beta Globulins PEP Interpretation Cholesterol LDL Cholesterol Direct Vitamin B12 Urine WBC (Auto) > 182.0 H Urine Creatinine Crossmatch 05/04/16 05/05/16 05/05/16 23:53 04:13 04:13 WBC 20.9 H RBC 2.92 L Hgb 7.6 L Hct 23.9 L MCV 82 L MCH 26 L MCHC RDW 17.9 H Plt Count 526 H Lymph % (Auto) [place] % (Auto) Lymph # [place] # Baso # Seg Neutrophils % Seg Neuts % (Manual) 93.0 H Lymphocytes % (Manual) 2.0 L Monocytes % (Manual) Seg Neutrophils # Seg Neutrophils # Man 19.4 H Lymphocytes # (Manual) 0.4 L Monocytes # (Manual) Basophils # (Manual) Percent Retic PT INR APTT Heparin Anti-Xa Level POC ABG pH POC ABG pCO2 POC ABG pO2 Sodium 146 H Potassium Chloride Carbon Dioxide BUN 30 H Creatinine 0.7 L Glucose 250 H POC Glucose 235 H Calcium 8.1 L Phosphorus Iron TIBC Lactate Dehydrogenase Total Creatine Kinase NT-Pro-B Natriuret Pep Total Protein Albumin Kqkqw-1-Pxfwzxtvi Jeyxt-0-Rrmcddzpw Beta Globulins PEP Interpretation Cholesterol LDL Cholesterol Direct Vitamin B12 Urine WBC (Auto) Urine Creatinine Crossmatch 05/05/16 05/05/16 05/05/16 05:27 07:36 12:06 WBC RBC Hgb Hct MCV MCH MCHC RDW Plt Count Lymph % (Auto) [place] % (Auto) Lymph # [place] # Baso # Seg Neutrophils % Seg Neuts % (Manual) Lymphocytes % (Manual) Monocytes % (Manual) Seg Neutrophils # Seg Neutrophils # Man Lymphocytes # (Manual) Monocytes # (Manual) Basophils # (Manual) Percent Retic PT INR APTT Heparin Anti-Xa Level < 0.10 L POC ABG pH POC ABG pCO2 POC ABG pO2 Sodium Potassium Chloride Carbon Dioxide BUN Creatinine Glucose POC Glucose 287 H 301 H Calcium Phosphorus Iron TIBC Lactate Dehydrogenase Total Creatine Kinase NT-Pro-B Natriuret Pep Total Protein Albumin Nmflp-2-Yozqhpnqk Usqaa-5-Fhgexbynb Beta Globulins PEP Interpretation Cholesterol LDL Cholesterol Direct Vitamin B12 Urine WBC (Auto) Urine Creatinine Crossmatch 05/05/16 05/05/16 05/06/16 15:58 17:30 00:10 WBC RBC Hgb Hct MCV MCH MCHC RDW Plt Count Lymph % (Auto) [place] % (Auto) Lymph # [place] # Baso # Seg Neutrophils % Seg Neuts % (Manual) Lymphocytes % (Manual) Monocytes % (Manual) Seg Neutrophils # Seg Neutrophils # Man Lymphocytes # (Manual) Monocytes # (Manual) Basophils # (Manual) Percent Retic PT INR APTT Heparin Anti-Xa Level 0.17 L POC ABG pH POC ABG pCO2 POC ABG pO2 Sodium Potassium Chloride Carbon Dioxide BUN Creatinine Glucose POC Glucose 226 H 161 H Calcium Phosphorus Iron TIBC Lactate Dehydrogenase Total Creatine Kinase NT-Pro-B Natriuret Pep Total Protein Albumin Apyza-0-Ybwwlcyze Smayr-6-Knfyiwqnb Beta Globulins PEP Interpretation Cholesterol LDL Cholesterol Direct Vitamin B12 Urine WBC (Auto) Urine Creatinine Crossmatch 05/06/16 05/06/16 05/06/16 04:23 05:30 05:37 WBC RBC Hgb Hct MCV MCH MCHC RDW Plt Count Lymph % (Auto) [place] % (Auto) Lymph # [place] # Baso # Seg Neutrophils % Seg Neuts % (Manual) Lymphocytes % (Manual) Monocytes % (Manual) Seg Neutrophils # Seg Neutrophils # Man Lymphocytes # (Manual) Monocytes # (Manual) Basophils # (Manual) Percent Retic PT INR APTT Heparin Anti-Xa Level 0.15 L POC ABG pH 7.511 H POC ABG pCO2 POC ABG pO2 Sodium Potassium Chloride Carbon Dioxide BUN Creatinine Glucose POC Glucose 168 H Calcium Phosphorus Iron TIBC Lactate Dehydrogenase Total Creatine Kinase NT-Pro-B Natriuret Pep Total Protein Albumin Pogkw-0-Pbwdwdknh Tlhkt-9-Pnpmjmulm Beta Globulins PEP Interpretation Cholesterol LDL Cholesterol Direct Vitamin B12 Urine WBC (Auto) Urine Creatinine Crossmatch 05/06/16 05/06/16 05/07/16 12:48 17:22 00:04 WBC RBC Hgb Hct MCV MCH MCHC RDW Plt Count Lymph % (Auto) [place] % (Auto) Lymph # [place] # Baso # Seg Neutrophils % Seg Neuts % (Manual) Lymphocytes % (Manual) Monocytes % (Manual) Seg Neutrophils # Seg Neutrophils # Man Lymphocytes # (Manual) Monocytes # (Manual) Basophils # (Manual) Percent Retic PT INR APTT Heparin Anti-Xa Level POC ABG pH POC ABG pCO2 POC ABG pO2 Sodium Potassium Chloride Carbon Dioxide BUN Creatinine Glucose POC Glucose 206 H 160 H 164 H Calcium Phosphorus Iron TIBC Lactate Dehydrogenase Total Creatine Kinase NT-Pro-B Natriuret Pep Total Protein Albumin Lueob-5-Agqsrglwb Ayrfk-8-Votytscwm Beta Globulins PEP Interpretation Cholesterol LDL Cholesterol Direct Vitamin B12 Urine WBC (Auto) Urine Creatinine Crossmatch 05/07/16 05/07/16 05/07/16 04:02 05:50 11:30 WBC RBC Hgb Hct MCV MCH MCHC RDW Plt Count Lymph % (Auto) [place] % (Auto) Lymph # [place] # Baso # Seg Neutrophils % Seg Neuts % (Manual) Lymphocytes % (Manual) Monocytes % (Manual) Seg Neutrophils # Seg Neutrophils # Man Lymphocytes # (Manual) Monocytes # (Manual) Basophils # (Manual) Percent Retic PT INR APTT Heparin Anti-Xa Level 0.15 L POC ABG pH POC ABG pCO2 POC ABG pO2 Sodium Potassium Chloride Carbon Dioxide BUN Creatinine Glucose POC Glucose 177 H 240 H Calcium Phosphorus Iron TIBC Lactate Dehydrogenase Total Creatine Kinase NT-Pro-B Natriuret Pep Total Protein Albumin Twtlx-1-Ntjxpqjzk Wjvbr-2-[place] Beta Globulins PEP Interpretation Cholesterol LDL Cholesterol Direct Vitamin B12 Urine WBC (Auto) Urine Creatinine Crossmatch 05/07/16 05/07/16 05/07/16 12:46 17:57 23:54 WBC 20.8 H RBC 2.86 L Hgb 7.6 L Hct 23.3 L MCV 81 L MCH 26 L MCHC RDW 17.9 H Plt Count 559 H Lymph % (Auto) [place] % (Auto) Lymph # [place] # Baso # Seg Neutrophils % Seg Neuts % (Manual) Lymphocytes % (Manual) Monocytes % (Manual) Seg Neutrophils # Seg Neutrophils # Man Lymphocytes # (Manual) Monocytes # (Manual) Basophils # (Manual) Percent Retic PT INR APTT Heparin Anti-Xa Level POC ABG pH POC ABG pCO2 POC ABG pO2 Sodium Potassium Chloride Carbon Dioxide BUN Creatinine Glucose POC Glucose 279 H 201 H Calcium Phosphorus Iron TIBC Lactate Dehydrogenase Total Creatine Kinase NT-Pro-B Natriuret Pep Total Protein Albumin Yghez-9-Taujdyovo Uvtbq-1-Zhrapossk Beta Globulins PEP Interpretation Cholesterol LDL Cholesterol Direct Vitamin B12 Urine WBC (Auto) Urine Creatinine Crossmatch 05/08/16 05/08/16 04:04 05:39 WBC RBC Hgb Hct MCV MCH MCHC RDW Plt Count Lymph % (Auto) [place] % (Auto) Lymph # [place] # Baso # Seg Neutrophils % Seg Neuts % (Manual) Lymphocytes % (Manual) Monocytes % (Manual) Seg Neutrophils # Seg Neutrophils # Man Lymphocytes # (Manual) Monocytes # (Manual) Basophils # (Manual) Percent Retic PT INR APTT Heparin Anti-Xa Level 0.20 L POC ABG pH POC ABG pCO2 POC ABG pO2 Sodium Potassium Chloride Carbon Dioxide BUN Creatinine Glucose POC Glucose 153 H Calcium Phosphorus Iron TIBC Lactate Dehydrogenase Total Creatine Kinase NT-Pro-B Natriuret Pep Total Protein Albumin Uzjkg-1-Vnxekebnc Qsjwt-6-Ezogpyqjm Beta Globulins PEP Interpretation Cholesterol LDL Cholesterol Direct Vitamin B12 Urine WBC (Auto) Urine Creatinine Crossmatch
[2016-05-08] MEDS: HEPARIN/ 0.45% NACL-25,000 UNIT/500 ML 500 ML IV SCH (13:21)
--- NOTE | 2016-05-08 13:49 | Progress Note ---
Assessment and Plan Assessment and plan: 1. Acute respiratory failure. Patient reintubated on 04/17/16. Continue mechanical ventilation per pulmonary. Tracheostomy on 04/29/16. Continue CPAP trials as per pulmonary; cotn to have temp spikes; agree with d/c antibiotics that were started overnight; f/u repeat blood NGTD; f/u as per pulmonary 2. Acute CVA -right cerebellum; subacute infarct in the right cerebellar hemisphere with associated edema and mass effect as previously described. Patient also with multiple areas of acute infarct in the left occipital and frontal lobes that are most likely embolic. LIZZIE done- No thrombus but decreased flow- cotn coumadin and heparin as bridge 3. Encephalopathy. EEG normal. Etiology likely secondary to CVA +/- hypertension. supportive care 4. Accelerated hypertension- now BP controlled; cont antihypertensive medications 5. CAD-stable; contn meds 6. . Seizures-continue Keppra. EEG normal. 7. Type 2 diabetes mellitus-. Glycemic control; cotn current insulin regime. 8. History of aortic dissection status post repair. 9. Oropharyngeal dysphagia. Patient failed swallow evaluation. Status post PEG placement on 04/17. Cont PEG feeds 10. DVT prophylaxis-on heparin drip. 11. GI prophylaxis-Pepcid CCT exclusive of all other billable procedures 31 minutes History Interval history: f/u respiratory failure; hypernatremia; acute renal failure Patient seen at the bedside; vented; no family present; Hospitalist Physical - Constitutional Vitals: Temp Pulse Resp BP Pulse Ox 130 F H 86 25 H 107/63 100 05/08/16 12:00 05/08/16 13:00 05/08/16 13:00 05/08/16 13:00 05/08/16 13:00 General appearance: Present: no acute distress, other (tracheostomy) - EENT Eyes: Present: PERRL, EOM intact. Absent: scleral icterus, conjunctival injection ENT: hearing intact, clear oral mucosa - Neck Neck: Present: supple, normal ROM. Absent: enlarged thyroid, masses or JVD - Respiratory Respiratory effort: other (trach in place with vent) Respiratory: bilateral: diminished, negative: rales, rhonchi, wheezing - Cardiovascular Rhythm: regular Heart Sounds: Present: S1 & S2. Absent: gallop - Extremities Extremities: no ischemia, pulses intact, pulses symmetrical, No edema Peripheral Pulses: within normal limits - Abdominal General gastrointestinal: soft, non-tender, non-distended - Integumentary Integumentary: Present: warm - Psychiatric Psychiatric: other (unable to assess ) - Neurologic Neurologic: other (unable to assess; unresponsive; non verbal) Results - Labs CBC & Chem 7: 05/07/16 12:46 05/05/16 04:13 Labs: Laboratory Last Values WBC 20.8 K/mm3 (4.5-11.0) H 05/07/16 12:46 RBC 2.86 M/mm3 (3.65-5.03) L 05/07/16 12:46 Hgb 7.6 gm/dl (11.8-15.2) L 05/07/16 12:46 Hct 23.3 % (35.5-45.6) L 05/07/16 12:46 MCV 81 fl (84-94) L 05/07/16 12:46 MCH 26 pg (28-32) L 05/07/16 12:46 MCHC 32 % (32-34) 05/07/16 12:46 RDW 17.9 % (13.2-15.2) H 05/07/16 12:46 Plt Count 559 K/mm3 (140-440) H 05/07/16 12:46 Lymph % (Auto) 8.0 % (13.4-35.0) L 05/02/16 04:48 [place] % (Auto) 13.6 % (0.0-7.3) H 05/02/16 04:48 Eos % (Auto) 0.2 % (0.0-4.3) 05/02/16 04:48 Baso % (Auto) 0.7 % (0.0-1.8) 05/02/16 04:48 Lymph # 1.4 K/mm3 (1.2-5.4) 05/02/16 04:48 [place] # 2.3 K/mm3 (0.0-0.8) H 05/02/16 04:48 Eos # 0.0 K/mm3 (0.0-0.4) 05/02/16 04:48 Baso # 0.1 K/mm3 (0.0-0.1) 05/02/16 04:48 Add Manual Diff Complete 05/05/16 04:13 Total Counted 100 05/05/16 04:13 Seg Neutrophils % 77.5 % (40.0-70.0) H 05/02/16 04:48 Seg Neuts % (Manual) 93.0 % (40.0-70.0) H 05/05/16 04:13 Band Neutrophils % 0 % 05/05/16 04:13 Lymphocytes % (Manual) 2.0 % (13.4-35.0) L 05/05/16 04:13 Reactive Lymphs % (Man) 0 % 05/05/16 04:13 Monocytes % (Manual) 4.0 % (0.0-7.3) 05/05/16 04:13 Eosinophils % (Manual) 0 % (0.0-4.3) 05/05/16 04:13 Basophils % (Manual) 0 % (0.0-1.8) 05/05/16 04:13 Metamyelocytes % 0 % 05/05/16 04:13 Myelocytes % 1.0 % 05/05/16 04:13 Promyelocytes % 0 % 05/05/16 04:13 Blast Cells % 0 % 05/05/16 04:13 Nucleated RBC % Not Reportable 05/05/16 04:13 Seg Neutrophils # 13.4 K/mm3 (1.8-7.7) H 05/02/16 04:48 Seg Neutrophils # Man 19.4 K/mm3 (1.8-7.7) H 05/05/16 04:13 Band Neutrophils # 0.0 K/mm3 05/05/16 04:13 Lymphocytes # (Manual) 0.4 K/mm3 (1.2-5.4) L 05/05/16 04:13 Abs React Lymphs (Man) 0.0 K/mm3 05/05/16 04:13 Monocytes # (Manual) 0.8 K/mm3 (0.0-0.8) 05/05/16 04:13 Eosinophils # (Manual) 0.0 K/mm3 (0.0-0.4) 05/05/16 04:13 Basophils # (Manual) 0.0 K/mm3 (0.0-0.1) 05/05/16 04:13 Metamyelocytes # 0.0 K/mm3 05/05/16 04:13 Myelocytes # 0.2 K/mm3 05/05/16 04:13 Promyelocytes # 0.0 K/mm3 05/05/16 04:13 Blast Cells # 0.0 K/mm3 05/05/16 04:13 WBC Morphology Not Reportable 05/05/16 04:13 Hypersegmented Neuts Few 05/05/16 04:13 Hyposegmented Neuts Not Reportable 05/05/16 04:13 Hypogranular Neuts Not Reportable 05/05/16 04:13 Smudge Cells Few 05/05/16 04:13 Toxic Granulation Not Reportable 05/05/16 04:13 Toxic Vacuolation Not Reportable 05/05/16 04:13 Dohle Bodies Not Reportable 05/05/16 04:13 Pelger-Huet Anomaly Not Reportable 05/05/16 04:13 Corina Rods Not Reportable 05/05/16 04:13 Platelet Estimate Appears increased 05/05/16 04:13 Clumped Platelets Not Reportable 05/05/16 04:13 Plt Clumps, EDTA Not Reportable 05/05/16 04:13 Large Platelets Not Reportable 05/05/16 04:13 Giant Platelets Rare 05/05/16 04:13 Platelet Satelliting Not Reportable 05/05/16 04:13 Plt Morphology Comment Not Reportable 05/05/16 04:13 RBC Morphology Not Reportable 05/05/16 04:13 Dimorphic RBCs Not Reportable 05/05/16 04:13 Polychromasia Not Reportable 05/05/16 04:13 Hypochromasia 1+ 05/05/16 04:13 Poikilocytosis Not Reportable 05/05/16 04:13 Anisocytosis 1+ 05/05/16 04:13 Microcytosis Not Reportable 05/05/16 04:13 Macrocytosis Not Reportable 05/05/16 04:13 Spherocytes Not Reportable 05/05/16 04:13 Pappenheimer Bodies Not Reportable 05/05/16 04:13 Sickle Cells Not Reportable 05/05/16 04:13 Target Cells Rare 05/05/16 04:13 Tear Drop Cells Not Reportable 05/05/16 04:13 Ovalocytes Not Reportable 05/05/16 04:13 Helmet Cells Not Reportable 05/05/16 04:13 Mcgrath-Parshall Bodies Not Reportable 05/05/16 04:13 [place] Rings Not Reportable 05/05/16 04:13 [place] Cells Not Reportable 05/05/16 04:13 Bite Cells Not Reportable 05/05/16 04:13 Crenated Cell Not Reportable 05/05/16 04:13 Elliptocytes Not Reportable 05/05/16 04:13 Acanthocytes (Spur) Not Reportable 05/05/16 04:13 Rouleaux Not Reportable 05/05/16 04:13 Hemoglobin C Crystals Not Reportable 05/05/16 04:13 Schistocytes Not Reportable 05/05/16 04:13 Malaria parasites Not Reportable 05/05/16 04:13 Percent Retic 3.68 % (0.78-2.58) H 04/29/16 10:16 Gideon Bodies Not Reportable 05/05/16 04:13 Hem Pathologist Commnt No 05/05/16 04:13 PT 15.9 Sec. (12.2-14.9) H 04/23/16 10:45 INR 1.28 (0.87-1.13) H 04/23/16 10:45 APTT 42.1 Sec. (24.2-36.6) H 04/04/16 09:55 Heparin Anti-Xa Level 0.20 U.I./ml (0.3-0.7) L 05/08/16 04:04 POC ABG pH 7.511 (7.35-7.45) H 05/06/16 05:30 POC ABG pCO2 36.2 (35-45) 05/06/16 05:30 POC ABG pO2 92 (80-105) 05/06/16 05:30 POC ABG HCO3 28.9 05/06/16 05:30 POC ABG Total CO2 30 05/06/16 05:30 POC ABG O2 Sat 98 05/06/16 05:30 POC ABG Base Excess 6 05/06/16 05:30 VBG pH 7.418 (7.320-7.420) 03/24/16 14:00 FiO2 25 % 05/06/16 05:30 Sodium 146 mmol/L (137-145) H 05/05/16 04:13 Potassium 3.7 mmol/L (3.6-5.0) 05/05/16 04:13 Chloride 106.0 mmol/L (98-107) 05/05/16 04:13 Carbon Dioxide 27 mmol/L (22-30) 05/05/16 04:13 Anion Gap 17 mmol/L 05/05/16 04:13 BUN 30 mg/dL (9-20) H 05/05/16 04:13 Creatinine 0.7 mg/dL (0.8-1.5) L 05/05/16 04:13 Estimated GFR > 60 ml/min 05/05/16 04:13 BUN/Creatinine Ratio 42.85 % 05/05/16 04:13 Glucose 250 mg/dL (75-100) H 05/05/16 04:13 POC Glucose 153 (70-105) H 05/08/16 05:39 Hemoglobin A1c 9.6 % (4-6) H 03/24/16 14:00 Lactic Acid 1.6 mmol/L (0.7-2.0) 04/17/16 12:17 Calcium 8.1 mg/dL (8.4-10.2) L 05/05/16 04:13 Phosphorus 2.3 mg/dL (2.5-4.5) L D 03/30/16 04:00 Magnesium 1.9 mg/dL (1.7-2.3) 03/30/16 04:00 Iron 10 ug/dL (49-181) L 04/29/16 10:16 TIBC 138 mcg/dL (250-450) L 04/29/16 10:16 Ferritin 336.4 ng/mL (13.0-400.0) 04/29/16 10:16 Total Bilirubin < 0.2 mg/dL (0.1-1.2) 04/27/16 04:21 AST 18 units/L (5-40) 04/27/16 04:21 ALT 39 units/L (7-56) 04/27/16 04:21 Alkaline Phosphatase 103 units/L (35-129) 04/27/16 04:21 Lactate Dehydrogenase 204 units/L (91-180) H 04/29/16 10:16 Total Creatine Kinase 356 units/L (55-170) H 03/28/16 13:29 Troponin T < 0.010 ng/mL (0.00-0.029) 03/28/16 13:29 NT-Pro-B Natriuret Pep 897.9 pg/mL (0-900) 04/03/16 04:10 Serum Total Protein 7.1 g/dL (6.1-8.1) 03/25/16 13:00 Total Protein 6.0 g/dL (6.3-8.2) L 04/27/16 04:21 Albumin 2.0 g/dL (3.9-5) L 04/27/16 04:21 Albumin/Globulin Ratio 0.5 % 04/27/16 04:21 Xiisv-0-Tzkelmurz See scanned report 03/31/16 12:20 Kngdx-1-Pboberver See scanned report 03/31/16 12:20 Beta Globulins See scanned report 03/31/16 12:20 Djzc-2-Uqvhgabzkvuhu 2.46 mg/L (<=2.51) 03/25/16 13:00 Gamma Globulins See scanned report 03/31/16 12:20 Abnorm Protein Band 1 see below (()) 03/25/16 13:00 PEP Interpretation See scanned report 03/31/16 12:20 Triglycerides 88 mg/dL (2-149) 03/24/16 17:58 Cholesterol 221 mg/dL (50-199) H 03/24/16 17:58 LDL Cholesterol Direct 146 mg/dL (50-130) H 03/24/16 17:58 HDL Cholesterol 58 mg/dL (40-59) 03/24/16 17:58 Cholesterol/HDL Ratio 3.81 % 03/24/16 17:58 Vitamin B12 1005 pg/mL (211-911) H 04/29/16 10:16 Folate 12.78 ng/mL (7.3-26.0) 04/29/16 10:16 Urine Color Yellow (Yellow) 05/04/16 10:20 Urine Turbidity Cloudy (Clear) 05/04/16 10:20 Urine pH 5.0 (5.0-7.0) 05/04/16 10:20 Ur Specific [place] 1.017 (1.003-1.030) 05/04/16 10:20 Urine Protein 100 mg/dl mg/dL (Negative) 05/04/16 10:20 Urine Glucose (UA) >=500 mg/dL (Negative) 05/04/16 10:20 Urine Ketones Neg mg/dL (Negative) 05/04/16 10:20 Urine Blood Sm (Negative) 05/04/16 10:20 Urine Nitrite Neg (Negative) 05/04/16 10:20 Urine Bilirubin Neg (Negative) 05/04/16 10:20 Urine Urobilinogen 2.0 mg/dL (<2.0) 05/04/16 10:20 Ur Leukocyte Esterase Lg (Negative) 05/04/16 10:20 Urine WBC (Auto) > 182.0 /HPF (0.0-6.0) H 05/04/16 10:20 Urine RBC (Auto) 13.0 /HPF (0.0-6.0) 05/04/16 10:20 U Epithel Cells (Auto) < 1.0 /HPF (0-13.0) 05/04/16 10:20 Urine Bacteria (Auto) 1+ /HPF (Negative) 05/04/16 10:20 Urine WBC Clumps 3+ /HPF 05/04/16 10:20 Hyaline Casts 1 /LPF 03/24/16 14:27 Urine Mucus Few /HPF 05/04/16 10:20 Urine Yeast (Budding) 1+ /HPF 05/04/16 10:20 Ur Random Creatinine See scanned report 03/31/16 12:20 U Random Total Protein See scanned report 03/31/16 12:20 Urine Creatinine 85.5 mg/dL (0.1-20.0) H 04/20/16 11:50 Protein/Creatinin Ratio See scanned report 03/31/16 12:20 Urine Sodium 17 mEq/L 04/20/16 11:50 U Abnormal Prot Band 1 See scanned report 03/31/16 12:20 U Abnormal Prot Band 2 See scanned report 03/31/16 12:20 U Abnormal Prot Band 3 See scanned report 03/31/16 12:20 Ketones 1.0 mg/dL (0.2-2.8) 03/24/16 14:00 Blood Type A POSITIVE 04/29/16 10:05 Antibody Screen Negative 04/29/16 10:05 Crossmatch See Detail 04/29/16 10:05
--- NOTE | 2016-05-08 16:26 | Cat Scan Report ---
FINAL REPORT PROCEDURE: CT HEAD/BRAIN WO CON TECHNIQUE: Computerized tomography of the head was performed without contrast material. HISTORY: Fever with encephalopahty on heprain, prior stroke COMPARISON: Head CT dated March 29, 2016 FINDINGS: Mild changes of chronic sinusitis are seen. Mastoid air cells appear clear. No calvarial fracture is seen. There is been interval aging of the right cerebellar hemispheric infarct. Old lacunar infarct is seen in the left side of the toño. Confluent hypodensities in the periventricular white matter appear stable and are probably due to chronic small vessel ischemic changes but other causes of encephalopathy are not excluded. Moderate old lacunar infarcts are seen in the basal ganglia, thalami, and heads of the caudate nuclei. Mild encephalomalacia is seen in the left parietal lobe from old CVA. No acute intracranial hemorrhage or mass effect is seen. No new CVA is seen. IMPRESSION: There has been interval aging of CVA in the right cerebellar hemisphere and left parietal lobe without evidence of acute CVA. Stable chronic small vessel ischemic changes are seen in the basal ganglia Stable confluent hypodensity in the periventricular white matter is probably due to small vessel ischemic changes given other findings but other causes of encephalopathy are not excluded.
--- NOTE | 2016-05-08 16:31 | Cat Scan Report ---
FINAL REPORT PROCEDURE: CT NECK WO CON TECHNIQUE: Computerized tomography of the soft tissue neck was performed without contrast material. This study is performed without intravascular contrast material and its sensitivity for pathology, including neoplasms, inflammation, abscess, free fluid, thrombosis, and arterial dissection, is reduced compared with a contrast enhanced study. HISTORY: Fever with encephalopahty on heprain, prior stroke COMPARISON: No prior studies are available for comparison. FINDINGS: Mild mucosal thickening is seen in the left maxillary sinus. Middle ears and mastoid air cells appear clear. 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 Patient has a tracheostomy tube with the tip in the trachea near the level of the thoracic inlet. There is air within the soft tissues adjacent to the trachea possibly due to air leak. Soft tissue edema is seen in the subcutaneous soft tissues at this level possibly from mild hemorrhage or cellulitis. All of these findings may just be from recent tube placement, though. Thyroid gland appears normal. There is prominence of the soft tissues in the region of the glottis and mass in this area is not excluded. Prominence of the palatine tonsils is seen causing occlusion of the posterior nasopharynx. This may be tonsillitis as a discrete mass is not seen by this unenhanced study but mass in this area is not excluded. Parapharyngeal fat planes are preserved and no abscess is seen in this region or elsewhere in the neck. No suspicious lymphadenopathy is seen. No retropharyngeal edema is seen. IMPRESSION: Air and edema is seen in the anterior aspect of the neck associated with the region of the tracheostomy tube findings could represent air leak and hemorrhage or cellulitis. Findings may just be due to recent tube placement. There prominence of the soft tissues in the region of the glottis without a discrete mass being identified. Malignancy cannot be excluded here. Prominence of the palatine tonsils is seen with prominent narrowing of the posterior nasopharynx. A discrete mass is not seen, though.
[2016-05-09] MEDS: NOVOLOG SUB-Q SCH ×4 (00:21→17:30)
[2016-05-09] MEDS: DUONEB 0.5 MG-3 MG/3 ML SOLN IH SCH ×4 (03:59→19:21)
[2016-05-09] MEDS: NORMODYNE PO SCH ×3 (07:48→21:50)
--- NOTE | 2016-05-09 08:41 | Progress Note ---
Assessment and Plan 61 y/o male with acute encephalopathy, secondary to embolic strokes, now with acute respiratory failure requiring re-intubation. 1. Fever: Enteroccocus Faecalis in the Urine, shabazz sensitive. Given persistent fevers, will have nurses change mcmahan and will start levaquin vs penicillin after discussing with pharmacy. Will treat for 7 days being that this is a male and considered to be a complicated/complex UTI. 2. Monitor positioning of trach. Distal obstruction is non-occlusive. Spoke with surgery and tract is not mature enough to change at this time. There is some swelling around the neck. Will continue to monitor this. 3. Continue PSV trials as tolerated, will attempt 24 hour trial today. 4. Case management working on funding and possible placement CCT 31 minutes. Subjective Date of service: 05/09/16 Principal diagnosis: CVA, acute respiratory failure Interval history: No acute events. Had head CT and Neck CT on yesterday. Head was stable. Neck did shows some things but this could all be related to recent trach placement. Still with fever, etiology unknown. Objective Vital Signs - 12hr 05/08/16 05/08/16 05/08/16 20:56 21:00 21:05 Temperature Pulse Rate 77 76 Pulse Rate [ Apical] Pulse Rate [ 77 Bilateral] Pulse Rate [ From Monitor] Respiratory 25 H 26 H Rate Respiratory 23 Rate [Bilateral ] Blood Pressure 106/62 106/62 O2 Sat by Pulse 100 Oximetry 05/08/16 05/08/16 05/08/16 22:00 22:26 22:33 Temperature Pulse Rate 80 79 77 Pulse Rate [ Apical] Pulse Rate [ Bilateral] Pulse Rate [ From Monitor] Respiratory 26 H 22 Rate Respiratory Rate [Bilateral ] Blood Pressure 107/62 107/62 107/62 O2 Sat by Pulse 100 Oximetry 05/08/16 05/08/16 05/09/16 23:00 23:34 00:00 Temperature 97.1 F L Pulse Rate 76 81 76 Pulse Rate [ 90 Apical] Pulse Rate [ Bilateral] Pulse Rate [ 90 From Monitor] Respiratory 25 H 16 Rate Respiratory Rate [Bilateral ] Blood Pressure 101/60 101/60 107/62 O2 Sat by Pulse 100 100 Oximetry 05/09/16 05/09/16 05/09/16 01:00 01:01 02:00 Temperature Pulse Rate 81 81 81 Pulse Rate [ Apical] Pulse Rate [ Bilateral] Pulse Rate [ From Monitor] Respiratory 18 20 15 Rate Respiratory Rate [Bilateral ] Blood Pressure 114/65 114/65 109/65 O2 Sat by Pulse 100 99 Oximetry 05/09/16 05/09/16 05/09/16 02:13 03:00 03:09 Temperature Pulse Rate 80 80 80 Pulse Rate [ Apical] Pulse Rate [ Bilateral] Pulse Rate [ From Monitor] Respiratory 18 20 25 H Rate Respiratory Rate [Bilateral ] Blood Pressure 109/65 116/67 116/67 O2 Sat by Pulse 100 100 Oximetry 05/09/16 05/09/16 05/09/16 03:57 04:00 04:17 Temperature 99.7 F H Pulse Rate 82 89 87 Pulse Rate [ 86 Apical] Pulse Rate [ 83 Bilateral] Pulse Rate [ 86 From Monitor] Respiratory 21 16 Rate Respiratory 19 Rate [Bilateral ] Blood Pressure 116/67 126/73 126/73 O2 Sat by Pulse 100 98 99 Oximetry 05/09/16 05/09/16 05/09/16 04:25 05:00 05:01 Temperature Pulse Rate 86 85 Pulse Rate [ Apical] Pulse Rate [ 85 Bilateral] Pulse Rate [ From Monitor] Respiratory 22 21 Rate Respiratory 19 Rate [Bilateral ] Blood Pressure 115/69 115/69 O2 Sat by Pulse 99 100 Oximetry 05/09/16 05/09/16 05/09/16 05:59 06:00 06:15 Temperature Pulse Rate 86 87 87 Pulse Rate [ Apical] Pulse Rate [ Bilateral] Pulse Rate [ From Monitor] Respiratory 21 20 21 Rate Respiratory Rate [Bilateral ] Blood Pressure 115/69 115/69 115/69 O2 Sat by Pulse 100 100 Oximetry 05/09/16 05/09/16 05/09/16 07:00 07:01 07:48 Temperature Pulse Rate 92 H 91 H 90 Pulse Rate [ Apical] Pulse Rate [ Bilateral] Pulse Rate [ From Monitor] Respiratory 22 18 Rate Respiratory Rate [Bilateral ] Blood Pressure 127/73 127/73 127/73 O2 Sat by Pulse 100 100 Oximetry 05/09/16 08:00 Temperature Pulse Rate 82 Pulse Rate [ 90 Apical] Pulse Rate [ Bilateral] Pulse Rate [ 90 From Monitor] Respiratory 23 Rate Respiratory Rate [Bilateral ] Blood Pressure 116/68 O2 Sat by Pulse 100 Oximetry Constitutional: no acute distress, comatose Eyes: non-icteric ENT: other (tracheotomy) Neck: supple Effort: normal Ascultation: Bilateral: clear Percussion: Bilateral: not dull Cardiovascular: regular rate and rhythm Gastrointestinal: normoactive bowel sounds, soft, non-tender Extremities: no cyanosis, no edema Neurologic: other (GCS 4 on vent) CBC and BMP: 05/07/16 12:46 05/05/16 04:13 ABG, PT/INR, D-dimer: ABG POC ABG pH 7.511 (7.35-7.45) H 05/06/16 05:30 POC ABG pCO2 36.2 (35-45) 05/06/16 05:30 POC ABG pO2 92 (80-105) 05/06/16 05:30 POC ABG HCO3 28.9 05/06/16 05:30 POC ABG Total CO2 30 05/06/16 05:30 POC ABG O2 Sat 98 05/06/16 05:30 PT/INR, D-dimer PT 15.9 Sec. (12.2-14.9) H 04/23/16 10:45 INR 1.28 (0.87-1.13) H 04/23/16 10:45 Abnormal lab findings: Abnormal Labs 03/24/16 03/24/16 03/24/16 17:58 20:25 23:23 WBC RBC Hgb Hct MCV MCH MCHC RDW Plt Count Lymph % (Auto) [place] % (Auto) Lymph # [place] # Baso # Seg Neutrophils % Seg Neuts % (Manual) Lymphocytes % (Manual) Monocytes % (Manual) Seg Neutrophils # Seg Neutrophils # Man Lymphocytes # (Manual) Monocytes # (Manual) Basophils # (Manual) Percent Retic PT INR APTT Heparin Anti-Xa Level POC ABG pH POC ABG pCO2 POC ABG pO2 Sodium 169 H* Potassium 3.5 L Chloride 130.3 H Carbon Dioxide BUN 28 H Creatinine 1.8 H Glucose POC Glucose 112 H Calcium Phosphorus Iron TIBC Lactate Dehydrogenase Total Creatine Kinase NT-Pro-B Natriuret Pep Total Protein Albumin Lqebh-3-Tncjkcfxd Bdebw-0-Ecgcjxbmf Beta Globulins PEP Interpretation Cholesterol 221 H LDL Cholesterol Direct 146 H Vitamin B12 Urine WBC (Auto) Urine Creatinine Crossmatch 03/25/16 03/25/16 03/25/16 05:56 05:56 05:56 WBC 21.3 H RBC 6.32 H Hgb 16.7 H Hct 52.7 H MCV 83 L MCH 27 L MCHC RDW Plt Count Lymph % (Auto) [place] % (Auto) Lymph # [place] # Baso # Seg Neutrophils % Seg Neuts % (Manual) 91.0 H Lymphocytes % (Manual) 4.0 L Monocytes % (Manual) Seg Neutrophils # Seg Neutrophils # Man 19.4 H Lymphocytes # (Manual) 0.9 L Monocytes # (Manual) 0.9 H Basophils # (Manual) Percent Retic PT INR APTT Heparin Anti-Xa Level POC ABG pH POC ABG pCO2 POC ABG pO2 Sodium 172 H* Potassium 3.5 L Chloride 130.4 H Carbon Dioxide BUN 29 H Creatinine 1.8 H Glucose 187 H POC Glucose Calcium Phosphorus Iron TIBC Lactate Dehydrogenase 460 H Total Creatine Kinase NT-Pro-B Natriuret Pep Total Protein Albumin Gmllz-4-Iibzfmrsf Plcsa-5-Xqhxmgrfg Beta Globulins PEP Interpretation Cholesterol LDL Cholesterol Direct Vitamin B12 Urine WBC (Auto) Urine Creatinine Crossmatch 03/25/16 03/25/16 03/25/16 07:55 12:19 13:00 WBC RBC Hgb Hct MCV MCH MCHC RDW Plt Count Lymph % (Auto) [place] % (Auto) Lymph # [place] # Baso # Seg Neutrophils % Seg Neuts % (Manual) Lymphocytes % (Manual) Monocytes % (Manual) Seg Neutrophils # Seg Neutrophils # Man Lymphocytes # (Manual) Monocytes # (Manual) Basophils # (Manual) Percent Retic PT INR APTT Heparin Anti-Xa Level POC ABG pH POC ABG pCO2 POC ABG pO2 Sodium Potassium Chloride Carbon Dioxide BUN Creatinine Glucose POC Glucose 231 H 314 H Calcium Phosphorus Iron TIBC Lactate Dehydrogenase Total Creatine Kinase NT-Pro-B Natriuret Pep Total Protein Albumin 3.4 L Kwnnn-3-Qbepcqxuj 0.4 H Jechh-6-Uqhesxbyl 1.1 H Beta Globulins 0.6 H PEP Interpretation see below H Cholesterol LDL Cholesterol Direct Vitamin B12 Urine WBC (Auto) Urine Creatinine Crossmatch 03/25/16 03/25/16 03/26/16 16:41 22:45 08:32 WBC RBC Hgb Hct MCV MCH MCHC RDW Plt Count Lymph % (Auto) [place] % (Auto) Lymph # [place] # Baso # Seg Neutrophils % Seg Neuts % (Manual) Lymphocytes % (Manual) Monocytes % (Manual) Seg Neutrophils # Seg Neutrophils # Man Lymphocytes # (Manual) Monocytes # (Manual) Basophils # (Manual) Percent Retic PT INR APTT Heparin Anti-Xa Level POC ABG pH POC ABG pCO2 POC ABG pO2 Sodium Potassium Chloride Carbon Dioxide BUN Creatinine Glucose POC Glucose 444 H 326 H 360 H Calcium Phosphorus Iron TIBC Lactate Dehydrogenase Total Creatine Kinase NT-Pro-B Natriuret Pep Total Protein Albumin Lqdaq-8-Nuwevpinw Iydmj-4-Qdaoqeddh Beta Globulins PEP Interpretation Cholesterol LDL Cholesterol Direct Vitamin B12 Urine WBC (Auto) Urine Creatinine Crossmatch 03/26/16 03/26/16 03/26/16 12:38 15:33 15:47 WBC RBC Hgb Hct MCV MCH MCHC RDW Plt Count Lymph % (Auto) [place] % (Auto) Lymph # [place] # Baso # Seg Neutrophils % Seg Neuts % (Manual) Lymphocytes % (Manual) Monocytes % (Manual) Seg Neutrophils # Seg Neutrophils # Man Lymphocytes # (Manual) Monocytes # (Manual) Basophils # (Manual) Percent Retic PT INR APTT Heparin Anti-Xa Level POC ABG pH 7.511 H POC ABG pCO2 26.5 L POC ABG pO2 70 L Sodium Potassium Chloride Carbon Dioxide BUN Creatinine Glucose POC Glucose 280 H 174 H Calcium Phosphorus Iron TIBC Lactate Dehydrogenase Total Creatine Kinase NT-Pro-B Natriuret Pep Total Protein Albumin Oieet-4-Lkdpdtluc Ctvrm-7-Ofrbtiker Beta Globulins PEP Interpretation Cholesterol LDL Cholesterol Direct Vitamin B12 Urine WBC (Auto) Urine Creatinine Crossmatch 03/26/16 03/26/16 03/26/16 16:47 16:47 18:51 WBC 14.0 H RBC 5.17 H Hgb Hct MCV MCH 26 L MCHC 31 L RDW Plt Count 139 L Lymph % (Auto) [place] % (Auto) Lymph # [place] # Baso # Seg Neutrophils % Seg Neuts % (Manual) Lymphocytes % (Manual) Monocytes % (Manual) Seg Neutrophils # Seg Neutrophils # Man Lymphocytes # (Manual) Monocytes # (Manual) Basophils # (Manual) Percent Retic PT INR APTT Heparin Anti-Xa Level POC ABG pH POC ABG pCO2 33.9 L POC ABG pO2 150 H Sodium 164 H* Potassium 3.4 L Chloride 128.5 H Carbon Dioxide BUN 30 H Creatinine 2.2 H Glucose 121 H POC Glucose Calcium 8.1 L Phosphorus Iron TIBC Lactate Dehydrogenase Total Creatine Kinase NT-Pro-B Natriuret Pep Total Protein Albumin Vikos-3-Ycbfiytzd Vezll-0-Iirrxfnck Beta Globulins PEP Interpretation Cholesterol LDL Cholesterol Direct Vitamin B12 Urine WBC (Auto) Urine Creatinine Crossmatch 03/27/16 03/27/16 03/27/16 02:19 05:47 06:02 WBC RBC Hgb Hct MCV MCH MCHC RDW Plt Count Lymph % (Auto) [place] % (Auto) Lymph # [place] # Baso # Seg Neutrophils % Seg Neuts % (Manual) Lymphocytes % (Manual) Monocytes % (Manual) Seg Neutrophils # Seg Neutrophils # Man Lymphocytes # (Manual) Monocytes # (Manual) Basophils # (Manual) Percent Retic PT INR APTT Heparin Anti-Xa Level POC ABG pH POC ABG pCO2 27.3 L 30.3 L POC ABG pO2 50 L 112 H Sodium 158 H Potassium Chloride 126.7 H Carbon Dioxide 20 L BUN 25 H Creatinine 1.7 H Glucose POC Glucose Calcium 7.0 L Phosphorus Iron TIBC Lactate Dehydrogenase Total Creatine Kinase NT-Pro-B Natriuret Pep Total Protein Albumin Qcsef-0-Utjnntilj Esqct-1-Aarxzwvsy Beta Globulins PEP Interpretation Cholesterol LDL Cholesterol Direct Vitamin B12 Urine WBC (Auto) Urine Creatinine Crossmatch 03/27/16 03/27/16 03/27/16 07:51 09:20 11:45 WBC 14.2 H RBC Hgb Hct MCV 83 L MCH 27 L MCHC RDW Plt Count 113 L Lymph % (Auto) [place] % (Auto) Lymph # [place] # Baso # Seg Neutrophils % Seg Neuts % (Manual) Lymphocytes % (Manual) Monocytes % (Manual) Seg Neutrophils # Seg Neutrophils # Man Lymphocytes # (Manual) Monocytes # (Manual) Basophils # (Manual) Percent Retic PT INR APTT Heparin Anti-Xa Level POC ABG pH POC ABG pCO2 POC ABG pO2 Sodium Potassium Chloride Carbon Dioxide BUN Creatinine Glucose POC Glucose 124 H 241 H Calcium Phosphorus Iron TIBC Lactate Dehydrogenase Total Creatine Kinase NT-Pro-B Natriuret Pep Total Protein Albumin Bpdsj-6-Acubuzmyi Dyywr-2-Fpduybauf Beta Globulins PEP Interpretation Cholesterol LDL Cholesterol Direct Vitamin B12 Urine WBC (Auto) Urine Creatinine Crossmatch 03/27/16 03/27/16 03/28/16 16:39 22:03 03:29 WBC RBC Hgb Hct MCV MCH MCHC RDW Plt Count Lymph % (Auto) [place] % (Auto) Lymph # [place] # Baso # Seg Neutrophils % Seg Neuts % (Manual) Lymphocytes % (Manual) Monocytes % (Manual) Seg Neutrophils # Seg Neutrophils # Man Lymphocytes # (Manual) Monocytes # (Manual) Basophils # (Manual) Percent Retic PT INR APTT Heparin Anti-Xa Level POC ABG pH POC ABG pCO2 POC ABG pO2 Sodium Potassium Chloride Carbon Dioxide BUN Creatinine Glucose POC Glucose 266 H 167 H 241 H Calcium Phosphorus Iron TIBC Lactate Dehydrogenase Total Creatine Kinase NT-Pro-B Natriuret Pep Total Protein Albumin Wsplk-1-Jkqsuvicd Xmkvc-1-Wygztiqus Beta Globulins PEP Interpretation Cholesterol LDL Cholesterol Direct Vitamin B12 Urine WBC (Auto) Urine Creatinine Crossmatch 03/28/16 03/28/16 03/28/16 05:00 05:00 05:00 WBC RBC Hgb Hct MCV 83 L MCH 27 L MCHC RDW Plt Count 106 L Lymph % (Auto) [place] % (Auto) 10.1 H Lymph # [place] # 1.0 H Baso # Seg Neutrophils % 75.1 H Seg Neuts % (Manual) Lymphocytes % (Manual) Monocytes % (Manual) Seg Neutrophils # Seg Neutrophils # Man Lymphocytes # (Manual) Monocytes # (Manual) Basophils # (Manual) Percent Retic PT INR APTT Heparin Anti-Xa Level POC ABG pH POC ABG pCO2 POC ABG pO2 Sodium 147 H D Potassium 3.1 L D Chloride 112.3 H Carbon Dioxide 21 L BUN Creatinine Glucose 208 H POC Glucose Calcium 7.0 L Phosphorus 2.2 L Iron TIBC Lactate Dehydrogenase Total Creatine Kinase NT-Pro-B Natriuret Pep Total Protein Albumin Wbpwf-9-Cyoopeaoh Dydyo-0-Ihnlebztg Beta Globulins PEP Interpretation Cholesterol LDL Cholesterol Direct Vitamin B12 Urine WBC (Auto) Urine Creatinine Crossmatch 03/28/16 03/28/16 03/28/16 05:14 08:41 10:56 WBC RBC Hgb Hct MCV MCH MCHC RDW Plt Count Lymph % (Auto) [place] % (Auto) Lymph # [place] # Baso # Seg Neutrophils % Seg Neuts % (Manual) Lymphocytes % (Manual) Monocytes % (Manual) Seg Neutrophils # Seg Neutrophils # Man Lymphocytes # (Manual) Monocytes # (Manual) Basophils # (Manual) Percent Retic PT INR APTT Heparin Anti-Xa Level POC ABG pH 7.457 H POC ABG pCO2 29.7 L 27.7 L POC ABG pO2 Sodium Potassium Chloride Carbon Dioxide BUN Creatinine Glucose POC Glucose 228 H Calcium Phosphorus Iron TIBC Lactate Dehydrogenase Total Creatine Kinase NT-Pro-B Natriuret Pep Total Protein Albumin Hzogr-4-Cdytmdldx Qbfwd-6-Fvoczamzu Beta Globulins PEP Interpretation Cholesterol LDL Cholesterol Direct Vitamin B12 Urine WBC (Auto) Urine Creatinine Crossmatch 03/28/16 03/28/16 03/28/16 11:37 13:29 16:22 WBC RBC Hgb Hct MCV MCH MCHC RDW Plt Count Lymph % (Auto) [place] % (Auto) Lymph # [place] # Baso # Seg Neutrophils % Seg Neuts % (Manual) Lymphocytes % (Manual) Monocytes % (Manual) Seg Neutrophils # Seg Neutrophils # Man Lymphocytes # (Manual) Monocytes # (Manual) Basophils # (Manual) Percent Retic PT INR APTT Heparin Anti-Xa Level POC ABG pH POC ABG pCO2 POC ABG pO2 Sodium Potassium Chloride Carbon Dioxide BUN Creatinine Glucose POC Glucose 226 H 200 H Calcium Phosphorus Iron TIBC Lactate Dehydrogenase Total Creatine Kinase 356 H NT-Pro-B Natriuret Pep Total Protein Albumin Ffptu-4-Aihdcfbfa Wqkvj-8-Lvdxtensr Beta Globulins PEP Interpretation Cholesterol LDL Cholesterol Direct Vitamin B12 Urine WBC (Auto) Urine Creatinine Crossmatch 03/28/16 03/29/16 03/29/16 21:48 04:50 04:50 WBC RBC Hgb 11.5 L Hct 35.3 L MCV 81 L MCH 26 L MCHC RDW Plt Count 97 L Lymph % (Auto) [place] % (Auto) 11.7 H Lymph # [place] # 1.1 H Baso # Seg Neutrophils % Seg Neuts % (Manual) Lymphocytes % (Manual) Monocytes % (Manual) Seg Neutrophils # Seg Neutrophils # Man Lymphocytes # (Manual) Monocytes # (Manual) Basophils # (Manual) Percent Retic PT INR APTT Heparin Anti-Xa Level POC ABG pH POC ABG pCO2 POC ABG pO2 Sodium 136 L D Potassium 3.3 L Chloride Carbon Dioxide 20 L BUN Creatinine Glucose 386 H POC Glucose 188 H Calcium 6.8 L Phosphorus 1.6 L D Iron TIBC Lactate Dehydrogenase Total Creatine Kinase NT-Pro-B Natriuret Pep Total Protein Albumin Hzujm-4-Lndlkhciz Snmcb-6-Azhstqfly Beta Globulins PEP Interpretation Cholesterol LDL Cholesterol Direct Vitamin B12 Urine WBC (Auto) Urine Creatinine Crossmatch 03/29/16 03/29/16 03/29/16 08:10 11:12 16:09 WBC RBC Hgb Hct MCV MCH MCHC RDW Plt Count Lymph % (Auto) [place] % (Auto) Lymph # [place] # Baso # Seg Neutrophils % Seg Neuts % (Manual) Lymphocytes % (Manual) Monocytes % (Manual) Seg Neutrophils # Seg Neutrophils # Man Lymphocytes # (Manual) Monocytes # (Manual) Basophils # (Manual) Percent Retic PT INR APTT Heparin Anti-Xa Level POC ABG pH POC ABG pCO2 POC ABG pO2 Sodium Potassium Chloride Carbon Dioxide BUN Creatinine Glucose POC Glucose 230 H 180 H 46 L Calcium Phosphorus Iron TIBC Lactate Dehydrogenase Total Creatine Kinase NT-Pro-B Natriuret Pep Total Protein Albumin Qnfqx-5-Futuigpqk Bscwa-3-Mthmulmmf Beta Globulins PEP Interpretation Cholesterol LDL Cholesterol Direct Vitamin B12 Urine WBC (Auto) Urine Creatinine Crossmatch 03/29/16 03/29/16 03/30/16 16:12 18:15 02:53 WBC RBC Hgb Hct MCV MCH MCHC RDW Plt Count Lymph % (Auto) [place] % (Auto) Lymph # [place] # Baso # Seg Neutrophils % Seg Neuts % (Manual) Lymphocytes % (Manual) Monocytes % (Manual) Seg Neutrophils # Seg Neutrophils # Man Lymphocytes # (Manual) Monocytes # (Manual) Basophils # (Manual) Percent Retic PT INR APTT Heparin Anti-Xa Level POC ABG pH POC ABG pCO2 POC ABG pO2 Sodium Potassium Chloride Carbon Dioxide BUN Creatinine Glucose POC Glucose 52 L 118 H 130 H Calcium Phosphorus Iron TIBC Lactate Dehydrogenase Total Creatine Kinase NT-Pro-B Natriuret Pep Total Protein Albumin Rpdkl-0-Wbextwbij Rohly-0-Zvaiztgnj Beta Globulins PEP Interpretation Cholesterol LDL Cholesterol Direct Vitamin B12 Urine WBC (Auto) Urine Creatinine Crossmatch 03/30/16 03/30/16 03/30/16 04:00 04:00 05:29 WBC RBC Hgb Hct MCV 81 L MCH 26 L MCHC RDW Plt Count 116 L Lymph % (Auto) 10.8 L [place] % (Auto) 13.1 H Lymph # 1.0 L [place] # 1.3 H Baso # Seg Neutrophils % 74.2 H Seg Neuts % (Manual) Lymphocytes % (Manual) Monocytes % (Manual) Seg Neutrophils # Seg Neutrophils # Man Lymphocytes # (Manual) Monocytes # (Manual) Basophils # (Manual) Percent Retic PT INR APTT Heparin Anti-Xa Level POC ABG pH 7.522 H POC ABG pCO2 22.7 L POC ABG pO2 137 H Sodium 147 H D Potassium Chloride 115.5 H Carbon Dioxide 20 L BUN Creatinine Glucose 116 H POC Glucose Calcium 7.6 L Phosphorus 2.3 L D Iron TIBC Lactate Dehydrogenase Total Creatine Kinase NT-Pro-B Natriuret Pep Total Protein Albumin Xgvfm-7-Rfmmxoarb Xibvb-7-Lthacxyct Beta Globulins PEP Interpretation Cholesterol LDL Cholesterol Direct Vitamin B12 Urine WBC (Auto) Urine Creatinine Crossmatch 03/30/16 03/30/16 03/30/16 05:47 08:05 08:59 WBC RBC Hgb Hct MCV MCH MCHC RDW Plt Count Lymph % (Auto) [place] % (Auto) Lymph # [place] # Baso # Seg Neutrophils % Seg Neuts % (Manual) Lymphocytes % (Manual) Monocytes % (Manual) Seg Neutrophils # Seg Neutrophils # Man Lymphocytes # (Manual) Monocytes # (Manual) Basophils # (Manual) Percent Retic PT INR APTT Heparin Anti-Xa Level POC ABG pH POC ABG pCO2 26.2 L POC ABG pO2 115 H Sodium Potassium Chloride Carbon Dioxide BUN Creatinine Glucose POC Glucose 138 H 171 H Calcium Phosphorus Iron TIBC Lactate Dehydrogenase Total Creatine Kinase NT-Pro-B Natriuret Pep Total Protein Albumin Npehx-2-Krmalzkcd Oyeba-1-Cuqejatnc Beta Globulins PEP Interpretation Cholesterol LDL Cholesterol Direct Vitamin B12 Urine WBC (Auto) Urine Creatinine Crossmatch 03/30/16 03/30/16 03/30/16 12:11 12:11 16:39 WBC RBC Hgb Hct MCV MCH MCHC RDW Plt Count Lymph % (Auto) [place] % (Auto) Lymph # [place] # Baso # Seg Neutrophils % Seg Neuts % (Manual) Lymphocytes % (Manual) Monocytes % (Manual) Seg Neutrophils # Seg Neutrophils # Man Lymphocytes # (Manual) Monocytes # (Manual) Basophils # (Manual) Percent Retic PT INR APTT Heparin Anti-Xa Level POC ABG pH 7.476 H POC ABG pCO2 29.0 L POC ABG pO2 Sodium Potassium Chloride Carbon Dioxide BUN Creatinine Glucose POC Glucose 142 H 59 L Calcium Phosphorus Iron TIBC Lactate Dehydrogenase Total Creatine Kinase NT-Pro-B Natriuret Pep Total Protein Albumin Odxvx-5-Rfhyomeko Vccje-6-Cebtkjxbf Beta Globulins PEP Interpretation Cholesterol LDL Cholesterol Direct Vitamin B12 Urine WBC (Auto) Urine Creatinine Crossmatch 03/30/16 03/30/16 03/31/16 18:41 21:59 05:02 WBC RBC Hgb Hct MCV MCH MCHC RDW Plt Count Lymph % (Auto) [place] % (Auto) Lymph # [place] # Baso # Seg Neutrophils % Seg Neuts % (Manual) Lymphocytes % (Manual) Monocytes % (Manual) Seg Neutrophils # Seg Neutrophils # Man Lymphocytes # (Manual) Monocytes # (Manual) Basophils # (Manual) Percent Retic PT INR APTT Heparin Anti-Xa Level POC ABG pH 7.519 H POC ABG pCO2 21.8 L POC ABG pO2 142 H Sodium Potassium Chloride Carbon Dioxide BUN Creatinine Glucose POC Glucose 145 H 154 H Calcium Phosphorus Iron TIBC Lactate Dehydrogenase Total Creatine Kinase NT-Pro-B Natriuret Pep Total Protein Albumin Ubcho-6-Ntycgslmw Huhru-2-Hsilhafdz Beta Globulins PEP Interpretation Cholesterol LDL Cholesterol Direct Vitamin B12 Urine WBC (Auto) Urine Creatinine Crossmatch 03/31/16 03/31/16 03/31/16 05:15 05:15 05:15 WBC 13.4 H RBC 5.21 H Hgb Hct MCV 81 L MCH 26 L MCHC RDW Plt Count Lymph % (Auto) 9.5 L [place] % (Auto) 14.0 H Lymph # [place] # 1.9 H Baso # Seg Neutrophils % 75.0 H Seg Neuts % (Manual) Lymphocytes % (Manual) Monocytes % (Manual) Seg Neutrophils # 10.1 H Seg Neutrophils # Man Lymphocytes # (Manual) Monocytes # (Manual) Basophils # (Manual) Percent Retic PT INR APTT Heparin Anti-Xa Level POC ABG pH POC ABG pCO2 POC ABG pO2 Sodium Potassium Chloride 108.5 H Carbon Dioxide 19 L BUN Creatinine Glucose 188 H POC Glucose Calcium Phosphorus Iron TIBC Lactate Dehydrogenase Total Creatine Kinase NT-Pro-B Natriuret Pep 1089 H Total Protein Albumin Smbqm-3-Fhoprddix Xllja-3-Wnyopdlzh Beta Globulins PEP Interpretation Cholesterol LDL Cholesterol Direct Vitamin B12 Urine WBC (Auto) Urine Creatinine Crossmatch 03/31/16 03/31/16 03/31/16 07:23 11:12 15:20 WBC RBC Hgb Hct MCV MCH MCHC RDW Plt Count Lymph % (Auto) [place] % (Auto) Lymph # [place] # Baso # Seg Neutrophils % Seg Neuts % (Manual) Lymphocytes % (Manual) Monocytes % (Manual) Seg Neutrophils # Seg Neutrophils # Man Lymphocytes # (Manual) Monocytes # (Manual) Basophils # (Manual) Percent Retic PT INR APTT Heparin Anti-Xa Level POC ABG pH POC ABG pCO2 POC ABG pO2 Sodium Potassium Chloride Carbon Dioxide BUN Creatinine Glucose POC Glucose 233 H 228 H 208 H Calcium Phosphorus Iron TIBC Lactate Dehydrogenase Total Creatine Kinase NT-Pro-B Natriuret Pep Total Protein Albumin Hxymd-1-Kyqioukwl Yvmkt-2-Fugihssgg Beta Globulins PEP Interpretation Cholesterol LDL Cholesterol Direct Vitamin B12 Urine WBC (Auto) Urine Creatinine Crossmatch 03/31/16 04/01/16 04/01/16 21:27 04:41 05:35 WBC 12.1 H RBC Hgb Hct MCV 81 L MCH 26 L MCHC RDW Plt Count Lymph % (Auto) 8.5 L [place] % (Auto) 14.0 H Lymph # 1.0 L [place] # 1.7 H Baso # Seg Neutrophils % 76.2 H Seg Neuts % (Manual) Lymphocytes % (Manual) Monocytes % (Manual) Seg Neutrophils # 9.2 H Seg Neutrophils # Man Lymphocytes # (Manual) Monocytes # (Manual) Basophils # (Manual) Percent Retic PT INR APTT Heparin Anti-Xa Level POC ABG pH 7.455 H POC ABG pCO2 31.0 L POC ABG pO2 Sodium Potassium Chloride Carbon Dioxide BUN Creatinine Glucose POC Glucose 162 H Calcium Phosphorus Iron TIBC Lactate Dehydrogenase Total Creatine Kinase NT-Pro-B Natriuret Pep Total Protein Albumin Rymjk-8-Yiocwldye Ytmgq-4-Vbujsugay Beta Globulins PEP Interpretation Cholesterol LDL Cholesterol Direct Vitamin B12 Urine WBC (Auto) Urine Creatinine Crossmatch 04/01/16 04/01/16 04/01/16 05:35 08:44 12:49 WBC RBC Hgb Hct MCV MCH MCHC RDW Plt Count Lymph % (Auto) [place] % (Auto) Lymph # [place] # Baso # Seg Neutrophils % Seg Neuts % (Manual) Lymphocytes % (Manual) Monocytes % (Manual) Seg Neutrophils # Seg Neutrophils # Man Lymphocytes # (Manual) Monocytes # (Manual) Basophils # (Manual) Percent Retic PT INR APTT Heparin Anti-Xa Level POC ABG pH POC ABG pCO2 POC ABG pO2 Sodium Potassium Chloride Carbon Dioxide BUN Creatinine Glucose 256 H POC Glucose 257 H 279 H Calcium 8.0 L Phosphorus Iron TIBC Lactate Dehydrogenase Total Creatine Kinase NT-Pro-B Natriuret Pep 1205 H Total Protein Albumin Arffw-5-Qszwqypzg Mzajg-1-Ebwwxwqdq Beta Globulins PEP Interpretation Cholesterol LDL Cholesterol Direct Vitamin B12 Urine WBC (Auto) Urine Creatinine Crossmatch 04/01/16 04/02/16 04/02/16 18:12 00:42 04:17 WBC RBC Hgb Hct MCV MCH MCHC RDW Plt Count Lymph % (Auto) [place] % (Auto) Lymph # [place] # Baso # Seg Neutrophils % Seg Neuts % (Manual) Lymphocytes % (Manual) Monocytes % (Manual) Seg Neutrophils # Seg Neutrophils # Man Lymphocytes # (Manual) Monocytes # (Manual) Basophils # (Manual) Percent Retic PT INR APTT Heparin Anti-Xa Level POC ABG pH 7.582 H POC ABG pCO2 26.8 L POC ABG pO2 Sodium Potassium Chloride Carbon Dioxide BUN Creatinine Glucose POC Glucose 168 H 282 H Calcium Phosphorus Iron TIBC Lactate Dehydrogenase Total Creatine Kinase NT-Pro-B Natriuret Pep Total Protein Albumin Xcbak-8-Biemmgpab Avgrp-8-Lkelfpyrq Beta Globulins PEP Interpretation Cholesterol LDL Cholesterol Direct Vitamin B12 Urine WBC (Auto) Urine Creatinine Crossmatch 04/02/16 04/02/16 04/02/16 05:00 05:00 06:27 WBC 12.4 H RBC Hgb Hct MCV 81 L MCH 26 L MCHC RDW Plt Count Lymph % (Auto) 6.4 L [place] % (Auto) 13.3 H Lymph # 0.8 L [place] # 1.7 H Baso # Seg Neutrophils % 79.4 H Seg Neuts % (Manual) Lymphocytes % (Manual) Monocytes % (Manual) Seg Neutrophils # 9.9 H Seg Neutrophils # Man Lymphocytes # (Manual) Monocytes # (Manual) Basophils # (Manual) Percent Retic PT INR APTT Heparin Anti-Xa Level POC ABG pH POC ABG pCO2 POC ABG pO2 Sodium 146 H Potassium Chloride Carbon Dioxide BUN Creatinine Glucose 334 H POC Glucose 317 H Calcium 8.0 L Phosphorus Iron TIBC Lactate Dehydrogenase Total Creatine Kinase NT-Pro-B Natriuret Pep Total Protein Albumin Tcqwm-8-Phrrfutrm Pfbyz-7-Uvqaxqftv Beta Globulins PEP Interpretation Cholesterol LDL Cholesterol Direct Vitamin B12 Urine WBC (Auto) Urine Creatinine Crossmatch 04/02/16 04/02/16 04/02/16 11:51 13:10 17:24 WBC RBC Hgb Hct MCV MCH MCHC RDW Plt Count Lymph % (Auto) [place] % (Auto) Lymph # [place] # Baso # Seg Neutrophils % Seg Neuts % (Manual) Lymphocytes % (Manual) Monocytes % (Manual) Seg Neutrophils # Seg Neutrophils # Man Lymphocytes # (Manual) Monocytes # (Manual) Basophils # (Manual) Percent Retic PT INR APTT Heparin Anti-Xa Level POC ABG pH 7.518 H POC ABG pCO2 POC ABG pO2 Sodium Potassium Chloride Carbon Dioxide BUN Creatinine Glucose POC Glucose 278 H 195 H Calcium Phosphorus Iron TIBC Lactate Dehydrogenase Total Creatine Kinase NT-Pro-B Natriuret Pep Total Protein Albumin Kplse-4-Wvejnuupp Cegam-5-Fdspnzmlq Beta Globulins PEP Interpretation Cholesterol LDL Cholesterol Direct Vitamin B12 Urine WBC (Auto) Urine Creatinine Crossmatch 04/03/16 04/03/16 04/03/16 00:18 04:10 04:10 WBC 14.3 H RBC Hgb Hct MCV 81 L MCH 26 L MCHC RDW Plt Count Lymph % (Auto) 9.0 L [place] % (Auto) 10.7 H Lymph # [place] # 1.5 H Baso # 0.2 H Seg Neutrophils % 78.5 H Seg Neuts % (Manual) Lymphocytes % (Manual) Monocytes % (Manual) Seg Neutrophils # 11.3 H Seg Neutrophils # Man Lymphocytes # (Manual) Monocytes # (Manual) Basophils # (Manual) Percent Retic PT INR APTT Heparin Anti-Xa Level POC ABG pH POC ABG pCO2 POC ABG pO2 Sodium 148 H Potassium Chloride 108.1 H Carbon Dioxide BUN 21 H Creatinine Glucose 227 H POC Glucose 144 H Calcium 8.2 L Phosphorus Iron TIBC Lactate Dehydrogenase Total Creatine Kinase NT-Pro-B Natriuret Pep Total Protein Albumin Jqnbf-2-Qfwtutvsq Vnobu-2-Wfgfaxidw Beta Globulins PEP Interpretation Cholesterol LDL Cholesterol Direct Vitamin B12 Urine WBC (Auto) Urine Creatinine Crossmatch 04/03/16 04/03/16 04/04/16 11:14 17:10 04:00 WBC 14.5 H RBC Hgb Hct MCV 81 L MCH 26 L MCHC RDW Plt Count Lymph % (Auto) 7.2 L [place] % (Auto) 7.6 H Lymph # 1.0 L [place] # 1.1 H Baso # Seg Neutrophils % 84.5 H Seg Neuts % (Manual) Lymphocytes % (Manual) Monocytes % (Manual) Seg Neutrophils # 12.3 H Seg Neutrophils # Man Lymphocytes # (Manual) Monocytes # (Manual) Basophils # (Manual) Percent Retic PT INR APTT Heparin Anti-Xa Level POC ABG pH POC ABG pCO2 POC ABG pO2 Sodium Potassium Chloride Carbon Dioxide BUN Creatinine Glucose POC Glucose 267 H 212 H Calcium Phosphorus Iron TIBC Lactate Dehydrogenase Total Creatine Kinase NT-Pro-B Natriuret Pep Total Protein Albumin Wztec-4-Cjbfgrvhs Txyeb-6-Rqvehytec Beta Globulins PEP Interpretation Cholesterol LDL Cholesterol Direct Vitamin B12 Urine WBC (Auto) Urine Creatinine Crossmatch 04/04/16 04/04/16 04/04/16 05:00 09:55 09:55 WBC RBC Hgb 11.5 L Hct MCV MCH MCHC RDW Plt Count Lymph % (Auto) [place] % (Auto) Lymph # [place] # Baso # Seg Neutrophils % Seg Neuts % (Manual) Lymphocytes % (Manual) Monocytes % (Manual) Seg Neutrophils # Seg Neutrophils # Man Lymphocytes # (Manual) Monocytes # (Manual) Basophils # (Manual) Percent Retic PT INR APTT 42.1 H Heparin Anti-Xa Level POC ABG pH POC ABG pCO2 POC ABG pO2 Sodium 146 H Potassium Chloride Carbon Dioxide BUN 22 H Creatinine Glucose 128 H POC Glucose Calcium Phosphorus Iron TIBC Lactate Dehydrogenase Total Creatine Kinase NT-Pro-B Natriuret Pep Total Protein Albumin Xntxn-0-Osnroqlic Zrrqj-6-Smewvxpdx Beta Globulins PEP Interpretation Cholesterol LDL Cholesterol Direct Vitamin B12 Urine WBC (Auto) Urine Creatinine Crossmatch 04/04/16 04/04/16 04/04/16 11:45 17:49 17:55 WBC RBC Hgb Hct MCV MCH MCHC RDW Plt Count Lymph % (Auto) [place] % (Auto) Lymph # [place] # Baso # Seg Neutrophils % Seg Neuts % (Manual) Lymphocytes % (Manual) Monocytes % (Manual) Seg Neutrophils # Seg Neutrophils # Man Lymphocytes # (Manual) Monocytes # (Manual) Basophils # (Manual) Percent Retic PT INR APTT Heparin Anti-Xa Level 1.19 H POC ABG pH POC ABG pCO2 POC ABG pO2 Sodium Potassium Chloride Carbon Dioxide BUN Creatinine Glucose POC Glucose 231 H 186 H Calcium Phosphorus Iron TIBC Lactate Dehydrogenase Total Creatine Kinase NT-Pro-B Natriuret Pep Total Protein Albumin Cgnrc-7-Zfvugydhe Hzjug-9-Blpibvfxx Beta Globulins PEP Interpretation Cholesterol LDL Cholesterol Direct Vitamin B12 Urine WBC (Auto) Urine Creatinine Crossmatch 04/05/16 04/05/16 04/05/16 00:35 05:32 05:42 WBC RBC Hgb Hct MCV MCH MCHC RDW Plt Count Lymph % (Auto) [place] % (Auto) Lymph # [place] # Baso # Seg Neutrophils % Seg Neuts % (Manual) Lymphocytes % (Manual) Monocytes % (Manual) Seg Neutrophils # Seg Neutrophils # Man Lymphocytes # (Manual) Monocytes # (Manual) Basophils # (Manual) Percent Retic PT INR APTT Heparin Anti-Xa Level POC ABG pH 7.491 H POC ABG pCO2 POC ABG pO2 Sodium Potassium Chloride Carbon Dioxide BUN Creatinine Glucose POC Glucose 192 H 242 H Calcium Phosphorus Iron TIBC Lactate Dehydrogenase Total Creatine Kinase NT-Pro-B Natriuret Pep Total Protein Albumin Fbxyv-2-Bjexcttnx Jxtjw-9-Frmgqejej Beta Globulins PEP Interpretation Cholesterol LDL Cholesterol Direct Vitamin B12 Urine WBC (Auto) Urine Creatinine Crossmatch 04/05/16 04/05/16 04/05/16 06:20 06:20 12:19 WBC 13.9 H RBC Hgb 11.6 L Hct MCV 81 L MCH 26 L MCHC RDW Plt Count Lymph % (Auto) 9.6 L [place] % (Auto) 8.7 H Lymph # [place] # 1.2 H Baso # Seg Neutrophils % 80.9 H Seg Neuts % (Manual) Lymphocytes % (Manual) Monocytes % (Manual) Seg Neutrophils # 11.3 H Seg Neutrophils # Man Lymphocytes # (Manual) Monocytes # (Manual) Basophils # (Manual) Percent Retic PT INR APTT Heparin Anti-Xa Level POC ABG pH POC ABG pCO2 POC ABG pO2 Sodium 148 H Potassium Chloride Carbon Dioxide BUN 23 H Creatinine Glucose 242 H POC Glucose 187 H Calcium Phosphorus Iron TIBC Lactate Dehydrogenase Total Creatine Kinase NT-Pro-B Natriuret Pep Total Protein Albumin Amxhw-1-Pqcmqrovl Vskxq-0-Ewwgecvcv Beta Globulins PEP Interpretation Cholesterol LDL Cholesterol Direct Vitamin B12 Urine WBC (Auto) Urine Creatinine Crossmatch 04/05/16 04/05/16 04/06/16 17:10 23:45 05:23 WBC 13.0 H RBC Hgb Hct MCV 82 L MCH 26 L MCHC 31 L RDW Plt Count Lymph % (Auto) 6.7 L [place] % (Auto) 8.3 H Lymph # 0.9 L [place] # 1.1 H Baso # Seg Neutrophils % 84.6 H Seg Neuts % (Manual) Lymphocytes % (Manual) Monocytes % (Manual) Seg Neutrophils # 11.0 H Seg Neutrophils # Man Lymphocytes # (Manual) Monocytes # (Manual) Basophils # (Manual) Percent Retic PT INR APTT Heparin Anti-Xa Level POC ABG pH POC ABG pCO2 POC ABG pO2 Sodium Potassium Chloride Carbon Dioxide BUN Creatinine Glucose POC Glucose 169 H 202 H Calcium Phosphorus Iron TIBC Lactate Dehydrogenase Total Creatine Kinase NT-Pro-B Natriuret Pep Total Protein Albumin Unsxg-7-Dbegbasol Orhxv-2-Trkzbzxim Beta Globulins PEP Interpretation Cholesterol LDL Cholesterol Direct Vitamin B12 Urine WBC (Auto) Urine Creatinine Crossmatch 04/06/16 04/06/16 04/06/16 05:23 05:23 06:11 WBC RBC Hgb Hct MCV MCH MCHC RDW Plt Count Lymph % (Auto) [place] % (Auto) Lymph # [place] # Baso # Seg Neutrophils % Seg Neuts % (Manual) Lymphocytes % (Manual) Monocytes % (Manual) Seg Neutrophils # Seg Neutrophils # Man Lymphocytes # (Manual) Monocytes # (Manual) Basophils # (Manual) Percent Retic PT INR APTT Heparin Anti-Xa Level 0.21 L POC ABG pH POC ABG pCO2 POC ABG pO2 Sodium 153 H Potassium Chloride 111.3 H Carbon Dioxide BUN 22 H Creatinine Glucose 62 L POC Glucose 56 L Calcium Phosphorus Iron TIBC Lactate Dehydrogenase Total Creatine Kinase NT-Pro-B Natriuret Pep Total Protein Albumin Bmjsl-0-Qoqvyszff Akprv-2-Pgkbwdmfb Beta Globulins PEP Interpretation Cholesterol LDL Cholesterol Direct Vitamin B12 Urine WBC (Auto) Urine Creatinine Crossmatch 04/06/16 04/06/16 04/06/16 06:52 11:36 14:58 WBC RBC Hgb Hct MCV MCH MCHC RDW Plt Count Lymph % (Auto) [place] % (Auto) Lymph # [place] # Baso # Seg Neutrophils % Seg Neuts % (Manual) Lymphocytes % (Manual) Monocytes % (Manual) Seg Neutrophils # Seg Neutrophils # Man Lymphocytes # (Manual) Monocytes # (Manual) Basophils # (Manual) Percent Retic PT INR APTT Heparin Anti-Xa Level POC ABG pH POC ABG pCO2 POC ABG pO2 Sodium Potassium Chloride Carbon Dioxide BUN Creatinine Glucose POC Glucose 206 H 139 H 147 H Calcium Phosphorus Iron TIBC Lactate Dehydrogenase Total Creatine Kinase NT-Pro-B Natriuret Pep Total Protein Albumin Ujkoo-1-Ipmtzwvcu Hctlb-2-Kzxotxrvj Beta Globulins PEP Interpretation Cholesterol LDL Cholesterol Direct Vitamin B12 Urine WBC (Auto) Urine Creatinine Crossmatch 04/06/16 04/06/16 04/06/16 16:03 21:18 23:53 WBC RBC Hgb Hct MCV MCH MCHC RDW Plt Count Lymph % (Auto) [place] % (Auto) Lymph # [place] # Baso # Seg Neutrophils % Seg Neuts % (Manual) Lymphocytes % (Manual) Monocytes % (Manual) Seg Neutrophils # Seg Neutrophils # Man Lymphocytes # (Manual) Monocytes # (Manual) Basophils # (Manual) Percent Retic PT INR APTT Heparin Anti-Xa Level POC ABG pH POC ABG pCO2 POC ABG pO2 Sodium Potassium Chloride Carbon Dioxide BUN Creatinine Glucose POC Glucose 154 H 293 H 301 H Calcium Phosphorus Iron TIBC Lactate Dehydrogenase Total Creatine Kinase NT-Pro-B Natriuret Pep Total Protein Albumin Jbinb-8-Qxtivrfhq Ilahi-4-Egszxbjpt Beta Globulins PEP Interpretation Cholesterol LDL Cholesterol Direct Vitamin B12 Urine WBC (Auto) Urine Creatinine Crossmatch 04/07/16 04/07/16 04/07/16 02:30 05:11 05:11 WBC 12.5 H RBC Hgb 11.5 L Hct MCV 82 L MCH 26 L MCHC 31 L RDW Plt Count Lymph % (Auto) [place] % (Auto) Lymph # [place] # Baso # Seg Neutrophils % Seg Neuts % (Manual) Lymphocytes % (Manual) Monocytes % (Manual) Seg Neutrophils # Seg Neutrophils # Man Lymphocytes # (Manual) Monocytes # (Manual) Basophils # (Manual) Percent Retic PT INR APTT Heparin Anti-Xa Level 0.11 L POC ABG pH POC ABG pCO2 POC ABG pO2 Sodium 150 H Potassium Chloride 109.5 H Carbon Dioxide BUN 28 H Creatinine Glucose 264 H POC Glucose Calcium Phosphorus Iron TIBC Lactate Dehydrogenase Total Creatine Kinase NT-Pro-B Natriuret Pep Total Protein Albumin Knbgh-7-Tjnfbhwpg Pfdzg-2-Mwfowpvjo Beta Globulins PEP Interpretation Cholesterol LDL Cholesterol Direct Vitamin B12 Urine WBC (Auto) Urine Creatinine Crossmatch 04/07/16 04/07/16 04/07/16 06:46 10:18 11:50 WBC RBC Hgb Hct MCV MCH MCHC RDW Plt Count Lymph % (Auto) [place] % (Auto) Lymph # [place] # Baso # Seg Neutrophils % Seg Neuts % (Manual) Lymphocytes % (Manual) Monocytes % (Manual) Seg Neutrophils # Seg Neutrophils # Man Lymphocytes # (Manual) Monocytes # (Manual) Basophils # (Manual) Percent Retic PT 15.1 H INR 1.20 H APTT Heparin Anti-Xa Level POC ABG pH POC ABG pCO2 POC ABG pO2 Sodium Potassium Chloride Carbon Dioxide BUN Creatinine Glucose POC Glucose 259 H 288 H Calcium Phosphorus Iron TIBC Lactate Dehydrogenase Total Creatine Kinase NT-Pro-B Natriuret Pep Total Protein Albumin Klxzh-8-Kxssoesvm Xyruk-1-Mscjxhbop Beta Globulins PEP Interpretation Cholesterol LDL Cholesterol Direct Vitamin B12 Urine WBC (Auto) Urine Creatinine Crossmatch 04/07/16 04/08/16 04/08/16 17:58 01:25 06:49 WBC RBC Hgb Hct MCV MCH MCHC RDW Plt Count Lymph % (Auto) [place] % (Auto) Lymph # [place] # Baso # Seg Neutrophils % Seg Neuts % (Manual) Lymphocytes % (Manual) Monocytes % (Manual) Seg Neutrophils # Seg Neutrophils # Man Lymphocytes # (Manual) Monocytes # (Manual) Basophils # (Manual) Percent Retic PT INR APTT Heparin Anti-Xa Level POC ABG pH POC ABG pCO2 POC ABG pO2 Sodium 156 H Potassium Chloride 114.7 H Carbon Dioxide BUN 33 H Creatinine Glucose 169 H POC Glucose 330 H 146 H Calcium Phosphorus Iron TIBC Lactate Dehydrogenase Total Creatine Kinase NT-Pro-B Natriuret Pep Total Protein Albumin Frpqa-3-Yittrcadr Jjqlf-4-Bymgbbuir Beta Globulins PEP Interpretation Cholesterol LDL Cholesterol Direct Vitamin B12 Urine WBC (Auto) Urine Creatinine Crossmatch 04/08/16 04/08/16 04/08/16 07:34 10:28 10:28 WBC RBC Hgb Hct MCV MCH MCHC RDW Plt Count Lymph % (Auto) [place] % (Auto) Lymph # [place] # Baso # Seg Neutrophils % Seg Neuts % (Manual) Lymphocytes % (Manual) Monocytes % (Manual) Seg Neutrophils # Seg Neutrophils # Man Lymphocytes # (Manual) Monocytes # (Manual) Basophils # (Manual) Percent Retic PT 15.5 H INR 1.24 H APTT Heparin Anti-Xa Level 0.24 L POC ABG pH POC ABG pCO2 POC ABG pO2 Sodium Potassium Chloride Carbon Dioxide BUN Creatinine Glucose POC Glucose 232 H Calcium Phosphorus Iron TIBC Lactate Dehydrogenase Total Creatine Kinase NT-Pro-B Natriuret Pep Total Protein Albumin Thggx-0-Cvxvwytnm Zakxj-4-Nwfcywzmf Beta Globulins PEP Interpretation Cholesterol LDL Cholesterol Direct Vitamin B12 Urine WBC (Auto) Urine Creatinine Crossmatch 04/08/16 04/08/1604/09/16 11:36 15:38 00:01 WBC RBC Hgb Hct MCV MCH MCHC RDW Plt Count Lymph % (Auto) [place] % (Auto) Lymph # [place] # Baso # Seg Neutrophils % Seg Neuts % (Manual) Lymphocytes % (Manual) Monocytes % (Manual) Seg Neutrophils # Seg Neutrophils # Man Lymphocytes # (Manual) Monocytes # (Manual) Basophils # (Manual) Percent Retic PT INR APTT Heparin Anti-Xa Level POC ABG pH POC ABG pCO2 POC ABG pO2 Sodium Potassium Chloride Carbon Dioxide BUN Creatinine Glucose POC Glucose 193 H 163 H 180 H Calcium Phosphorus Iron TIBC Lactate Dehydrogenase Total Creatine Kinase NT-Pro-B Natriuret Pep Total Protein Albumin Rxzuo-1-Gsdvahvpa Jopwb-0-Ekzjiqzie Beta Globulins PEP Interpretation Cholesterol LDL Cholesterol Direct Vitamin B12 Urine WBC (Auto) Urine Creatinine Crossmatch 04/09/16 04/09/16 04/09/16 06:17 06:42 06:42 WBC RBC Hgb Hct MCV MCH MCHC RDW Plt Count Lymph % (Auto) [place] % (Auto) Lymph # [place] # Baso # Seg Neutrophils % Seg Neuts % (Manual) Lymphocytes % (Manual) Monocytes % (Manual) Seg Neutrophils # Seg Neutrophils # Man Lymphocytes # (Manual) Monocytes # (Manual) Basophils # (Manual) Percent Retic PT 17.4 H INR 1.43 H APTT Heparin Anti-Xa Level POC ABG pH POC ABG pCO2 POC ABG pO2 Sodium 153 H Potassium Chloride 113.2 H Carbon Dioxide BUN 29 H Creatinine Glucose 301 H POC Glucose 249 H Calcium 8.3 L Phosphorus Iron TIBC Lactate Dehydrogenase Total Creatine Kinase NT-Pro-B Natriuret Pep Total Protein Albumin Aaerp-6-Awaqmnzwx Erfgl-0-Jeldxjryv Beta Globulins PEP Interpretation Cholesterol LDL Cholesterol Direct Vitamin B12 Urine WBC (Auto) Urine Creatinine Crossmatch 04/09/16 04/09/16 04/09/16 07:37 11:26 15:45 WBC RBC Hgb Hct MCV MCH MCHC RDW Plt Count Lymph % (Auto) [place] % (Auto) Lymph # [place] # Baso # Seg Neutrophils % Seg Neuts % (Manual) Lymphocytes % (Manual) Monocytes % (Manual) Seg Neutrophils # Seg Neutrophils # Man Lymphocytes # (Manual) Monocytes # (Manual) Basophils # (Manual) Percent Retic PT INR APTT Heparin Anti-Xa Level POC ABG pH POC ABG pCO2 POC ABG pO2 Sodium Potassium Chloride Carbon Dioxide BUN Creatinine Glucose POC Glucose 283 H 306 H 354 H Calcium Phosphorus Iron TIBC Lactate Dehydrogenase Total Creatine Kinase NT-Pro-B Natriuret Pep Total Protein Albumin Txtfm-6-Vtjsbiirq Dfwnz-1-Fadhxsevu Beta Globulins PEP Interpretation Cholesterol LDL Cholesterol Direct Vitamin B12 Urine WBC (Auto) Urine Creatinine Crossmatch 04/10/16 04/10/16 04/10/16 00:53 07:15 07:34 WBC RBC Hgb 11.3 L Hct MCV MCH MCHC RDW Plt Count Lymph % (Auto) [place] % (Auto) Lymph # [place] # Baso # Seg Neutrophils % Seg Neuts % (Manual) Lymphocytes % (Manual) Monocytes % (Manual) Seg Neutrophils # Seg Neutrophils # Man Lymphocytes # (Manual) Monocytes # (Manual) Basophils # (Manual) Percent Retic PT INR APTT Heparin Anti-Xa Level POC ABG pH POC ABG pCO2 POC ABG pO2 Sodium Potassium Chloride Carbon Dioxide BUN Creatinine Glucose POC Glucose 323 H 311 H Calcium Phosphorus Iron TIBC Lactate Dehydrogenase Total Creatine Kinase NT-Pro-B Natriuret Pep Total Protein Albumin Wuxsh-2-Uluraipws Mcybo-3-Teyutbnwc Beta Globulins PEP Interpretation Cholesterol LDL Cholesterol Direct Vitamin B12 Urine WBC (Auto) Urine Creatinine Crossmatch 04/10/16 04/10/16 04/10/16 07:34 07:34 11:25 WBC RBC Hgb Hct MCV MCH MCHC RDW Plt Count Lymph % (Auto) [place] % (Auto) Lymph # [place] # Baso # Seg Neutrophils % Seg Neuts % (Manual) Lymphocytes % (Manual) Monocytes % (Manual) Seg Neutrophils # Seg Neutrophils # Man Lymphocytes # (Manual) Monocytes # (Manual) Basophils # (Manual) Percent Retic PT 17.3 H INR 1.42 H APTT Heparin Anti-Xa Level POC ABG pH POC ABG pCO2 POC ABG pO2 Sodium 158 H Potassium Chloride 118.6 H Carbon Dioxide BUN 30 H Creatinine Glucose 330 H POC Glucose 335 H Calcium 8.3 L Phosphorus Iron TIBC Lactate Dehydrogenase Total Creatine Kinase NT-Pro-B Natriuret Pep Total Protein Albumin Eyykq-7-Fqapcrhcr Bqlzq-0-Tqhyluick Beta Globulins PEP Interpretation Cholesterol LDL Cholesterol Direct Vitamin B12 Urine WBC (Auto) Urine Creatinine Crossmatch 04/10/16 04/11/16 04/11/16 16:21 00:29 07:47 WBC RBC Hgb Hct MCV MCH MCHC RDW Plt Count Lymph % (Auto) [place] % (Auto) Lymph # [place] # Baso # Seg Neutrophils % Seg Neuts % (Manual) Lymphocytes % (Manual) Monocytes % (Manual) Seg Neutrophils # Seg Neutrophils # Man Lymphocytes # (Manual) Monocytes # (Manual) Basophils # (Manual) Percent Retic PT 18.4 H INR 1.53 H APTT Heparin Anti-Xa Level POC ABG pH POC ABG pCO2 POC ABG pO2 Sodium Potassium Chloride Carbon Dioxide BUN Creatinine Glucose POC Glucose 230 H 162 H Calcium Phosphorus Iron TIBC Lactate Dehydrogenase Total Creatine Kinase NT-Pro-B Natriuret Pep Total Protein Albumin Sezkv-6-Lueisazvo Wdltf-6-Vuufghung Beta Globulins PEP Interpretation Cholesterol LDL Cholesterol Direct Vitamin B12 Urine WBC (Auto) Urine Creatinine Crossmatch 04/11/16 04/11/16 04/12/16 07:47 11:22 04:54 WBC RBC Hgb 11.0 L Hct 35.0 L MCV MCH MCHC RDW Plt Count Lymph % (Auto) [place] % (Auto) Lymph # [place] # Baso # Seg Neutrophils % Seg Neuts % (Manual) Lymphocytes % (Manual) Monocytes % (Manual) Seg Neutrophils # Seg Neutrophils # Man Lymphocytes # (Manual) Monocytes # (Manual) Basophils # (Manual) Percent Retic PT INR APTT Heparin Anti-Xa Level POC ABG pH POC ABG pCO2 POC ABG pO2 Sodium 155 H Potassium Chloride 114.5 H Carbon Dioxide BUN 23 H Creatinine Glucose 157 H POC Glucose 229 H Calcium Phosphorus Iron TIBC Lactate Dehydrogenase Total Creatine Kinase NT-Pro-B Natriuret Pep Total Protein Albumin Cfhmx-2-Lgoypywjk Azvyy-2-Mppryhhkl Beta Globulins PEP Interpretation Cholesterol LDL Cholesterol Direct Vitamin B12 Urine WBC (Auto) Urine Creatinine Crossmatch 04/12/16 04/12/16 04/12/16 04:54 04:54 05:57 WBC RBC Hgb Hct MCV MCH MCHC RDW Plt Count Lymph % (Auto) [place] % (Auto) Lymph # [place] # Baso # Seg Neutrophils % Seg Neuts % (Manual) Lymphocytes % (Manual) Monocytes % (Manual) Seg Neutrophils # Seg Neutrophils # Man Lymphocytes # (Manual) Monocytes # (Manual) Basophils # (Manual) Percent Retic PT 22.5 H INR 1.98 H APTT Heparin Anti-Xa Level 0.19 L POC ABG pH POC ABG pCO2 POC ABG pO2 Sodium 156 H Potassium Chloride 115.4 H Carbon Dioxide BUN 23 H Creatinine Glucose 143 H POC Glucose 194 H Calcium Phosphorus Iron TIBC Lactate Dehydrogenase Total Creatine Kinase NT-Pro-B Natriuret Pep Total Protein Albumin Rvtim-9-Gsqjbprcj Llujt-6-Ckmllrzqy Beta Globulins PEP Interpretation Cholesterol LDL Cholesterol Direct Vitamin B12 Urine WBC (Auto) Urine Creatinine Crossmatch 04/12/16 04/12/16 04/12/16 12:34 19:01 23:30 WBC RBC Hgb Hct MCV MCH MCHC RDW Plt Count Lymph % (Auto) [place] % (Auto) Lymph # [place] # Baso # Seg Neutrophils % Seg Neuts % (Manual) Lymphocytes % (Manual) Monocytes % (Manual) Seg Neutrophils # Seg Neutrophils # Man Lymphocytes # (Manual) Monocytes # (Manual) Basophils # (Manual) Percent Retic PT INR APTT Heparin Anti-Xa Level POC ABG pH POC ABG pCO2 POC ABG pO2 Sodium Potassium Chloride Carbon Dioxide BUN Creatinine Glucose POC Glucose 291 H 235 H 154 H Calcium Phosphorus Iron TIBC Lactate Dehydrogenase Total Creatine Kinase NT-Pro-B Natriuret Pep Total Protein Albumin Ypwdp-9-Gqucolgli Ftnlb-6-Twmmwrual Beta Globulins PEP Interpretation Cholesterol LDL Cholesterol Direct Vitamin B12 Urine WBC (Auto) Urine Creatinine Crossmatch 04/13/16 04/13/16 04/13/16 05:16 05:16 05:28 WBC RBC Hgb Hct MCV MCH MCHC RDW Plt Count Lymph % (Auto) [place] % (Auto) Lymph # [place] # Baso # Seg Neutrophils % Seg Neuts % (Manual) Lymphocytes % (Manual) Monocytes % (Manual) Seg Neutrophils # Seg Neutrophils # Man Lymphocytes # (Manual) Monocytes # (Manual) Basophils # (Manual) Percent Retic PT 27.0 H INR 2.49 H APTT Heparin Anti-Xa Level 0.20 L POC ABG pH POC ABG pCO2 POC ABG pO2 Sodium 150 H Potassium Chloride 110.5 H Carbon Dioxide BUN 21 H Creatinine Glucose 159 H POC Glucose 177 H Calcium Phosphorus Iron TIBC Lactate Dehydrogenase Total Creatine Kinase NT-Pro-B Natriuret Pep Total Protein Albumin Ykyre-0-Vhebuqzau Yntnh-2-Lngpksmrf Beta Globulins PEP Interpretation Cholesterol LDL Cholesterol Direct Vitamin B12 Urine WBC (Auto) Urine Creatinine Crossmatch 04/13/16 04/13/16 04/14/16 11:30 17:54 00:44 WBC RBC Hgb Hct MCV MCH MCHC RDW Plt Count Lymph % (Auto) [place] % (Auto) Lymph # [place] # Baso # Seg Neutrophils % Seg Neuts % (Manual) Lymphocytes % (Manual) Monocytes % (Manual) Seg Neutrophils # Seg Neutrophils # Man Lymphocytes # (Manual) Monocytes # (Manual) Basophils # (Manual) Percent Retic PT INR APTT Heparin Anti-Xa Level POC ABG pH POC ABG pCO2 POC ABG pO2 Sodium Potassium Chloride Carbon Dioxide BUN Creatinine Glucose POC Glucose 181 H 251 H 237 H Calcium Phosphorus Iron TIBC Lactate Dehydrogenase Total Creatine Kinase NT-Pro-B Natriuret Pep Total Protein Albumin Jumhn-5-Wnvjvghub Xnyqr-5-Mazqyozsw Beta Globulins PEP Interpretation Cholesterol LDL Cholesterol Direct Vitamin B12 Urine WBC (Auto) Urine Creatinine Crossmatch 04/14/16 04/14/16 04/14/16 05:00 05:42 05:42 WBC RBC Hgb Hct MCV MCH MCHC RDW Plt Count Lymph % (Auto) [place] % (Auto) Lymph # [place] # Baso # Seg Neutrophils % Seg Neuts % (Manual) Lymphocytes % (Manual) Monocytes % (Manual) Seg Neutrophils # Seg Neutrophils # Man Lymphocytes # (Manual) Monocytes # (Manual) Basophils # (Manual) Percent Retic PT 30.3 H INR 2.88 H APTT Heparin Anti-Xa Level 0.27 L POC ABG pH POC ABG pCO2 POC ABG pO2 Sodium Potassium 3.5 L Chloride Carbon Dioxide BUN Creatinine Glucose 160 H POC Glucose Calcium 8.2 L Phosphorus Iron TIBC Lactate Dehydrogenase Total Creatine Kinase NT-Pro-B Natriuret Pep Total Protein Albumin Qxyve-6-Gkwyriddu Gzuxz-5-Swimsvxta Beta Globulins PEP Interpretation Cholesterol LDL Cholesterol Direct Vitamin B12 Urine WBC (Auto) Urine Creatinine Crossmatch 04/14/16 04/14/16 04/14/16 06:02 06:16 09:18 WBC 12.3 H RBC Hgb 11.4 L Hct MCV 82 L MCH 26 L MCHC RDW Plt Count Lymph % (Auto) [place] % (Auto) Lymph # [place] # Baso # Seg Neutrophils % Seg Neuts % (Manual) Lymphocytes % (Manual) Monocytes % (Manual) Seg Neutrophils # Seg Neutrophils # Man Lymphocytes # (Manual) Monocytes # (Manual) Basophils # (Manual) Percent Retic PT INR APTT Heparin Anti-Xa Level POC ABG pH POC ABG pCO2 POC ABG pO2 Sodium Potassium Chloride Carbon Dioxide BUN Creatinine Glucose POC Glucose 156 H 164 H Calcium Phosphorus Iron TIBC Lactate Dehydrogenase Total Creatine Kinase NT-Pro-B Natriuret Pep Total Protein Albumin Knpqm-6-Dcjlyhdgs Hmgea-4-Rofuzvkkb Beta Globulins PEP Interpretation Cholesterol LDL Cholesterol Direct Vitamin B12 Urine WBC (Auto) Urine Creatinine Crossmatch 04/14/16 04/15/16 04/15/16 13:58 01:07 06:04 WBC RBC Hgb Hct MCV MCH MCHC RDW Plt Count Lymph % (Auto) [place] % (Auto) Lymph # [place] # Baso # Seg Neutrophils % Seg Neuts % (Manual) Lymphocytes % (Manual) Monocytes % (Manual) Seg Neutrophils # Seg Neutrophils # Man Lymphocytes # (Manual) Monocytes # (Manual) Basophils # (Manual) Percent Retic PT 24.9 H INR 2.25 H APTT Heparin Anti-Xa Level POC ABG pH POC ABG pCO2 POC ABG pO2 Sodium Potassium Chloride Carbon Dioxide BUN Creatinine Glucose POC Glucose 109 H 154 H Calcium Phosphorus Iron TIBC Lactate Dehydrogenase Total Creatine Kinase NT-Pro-B Natriuret Pep Total Protein Albumin Thssm-9-Twzxuqggq Jqpzr-6-Zgspuujkh Beta Globulins PEP Interpretation Cholesterol LDL Cholesterol Direct Vitamin B12 Urine WBC (Auto) Urine Creatinine Crossmatch 04/15/16 04/15/16 04/16/16 06:08 12:41 00:38 WBC RBC Hgb Hct MCV MCH MCHC RDW Plt Count Lymph % (Auto) [place] % (Auto) Lymph # [place] # Baso # Seg Neutrophils % Seg Neuts % (Manual) Lymphocytes % (Manual) Monocytes % (Manual) Seg Neutrophils # Seg Neutrophils # Man Lymphocytes # (Manual) Monocytes # (Manual) Basophils # (Manual) Percent Retic PT INR APTT Heparin Anti-Xa Level POC ABG pH POC ABG pCO2 POC ABG pO2 Sodium Potassium Chloride Carbon Dioxide BUN Creatinine Glucose POC Glucose 165 H 223 H 216 H Calcium Phosphorus Iron TIBC Lactate Dehydrogenase Total Creatine Kinase NT-Pro-B Natriuret Pep Total Protein Albumin Cdtfv-4-Oxcvytgyk Widjd-8-Gcrsnzdzs Beta Globulins PEP Interpretation Cholesterol LDL Cholesterol Direct Vitamin B12 Urine WBC (Auto) Urine Creatinine Crossmatch 04/16/16 04/16/16 04/16/16 05:45 07:09 14:00 WBC RBC Hgb Hct MCV MCH MCHC RDW Plt Count Lymph % (Auto) [place] % (Auto) Lymph # [place] # Baso # Seg Neutrophils % Seg Neuts % (Manual) Lymphocytes % (Manual) Monocytes % (Manual) Seg Neutrophils # Seg Neutrophils # Man Lymphocytes # (Manual) Monocytes # (Manual) Basophils # (Manual) Percent Retic PT 19.4 H INR 1.64 H APTT Heparin Anti-Xa Level 0.10 L POC ABG pH POC ABG pCO2 POC ABG pO2 Sodium Potassium Chloride Carbon Dioxide BUN Creatinine Glucose POC Glucose 207 H 69 L Calcium Phosphorus Iron TIBC Lactate Dehydrogenase Total Creatine Kinase NT-Pro-B Natriuret Pep Total Protein Albumin Fruir-7-Aebrfzkfh Gukvp-2-Mczozmivb Beta Globulins PEP Interpretation Cholesterol LDL Cholesterol Direct Vitamin B12 Urine WBC (Auto) Urine Creatinine Crossmatch 04/16/16 04/16/16 04/16/16 17:40 17:52 19:38 WBC RBC Hgb Hct MCV MCH MCHC RDW Plt Count Lymph % (Auto) [place] % (Auto) Lymph # [place] # Baso # Seg Neutrophils % Seg Neuts % (Manual) Lymphocytes % (Manual) Monocytes % (Manual) Seg Neutrophils # Seg Neutrophils # Man Lymphocytes # (Manual) Monocytes # (Manual) Basophils # (Manual) Percent Retic PT INR APTT Heparin Anti-Xa Level 0.26 L POC ABG pH 7.543 H 7.488 H POC ABG pCO2 26.3 L 30.3 L POC ABG pO2 55 L 203 H Sodium Potassium Chloride Carbon Dioxide BUN Creatinine Glucose POC Glucose Calcium Phosphorus Iron TIBC Lactate Dehydrogenase Total Creatine Kinase NT-Pro-B Natriuret Pep Total Protein Albumin Vbfkf-0-Dzirdskwf Cwrrn-5-Ozxaziidy Beta Globulins PEP Interpretation Cholesterol LDL Cholesterol Direct Vitamin B12 Urine WBC (Auto) Urine Creatinine Crossmatch 04/17/16 04/17/16 04/17/16 00:04 05:10 05:36 WBC RBC Hgb Hct MCV MCH MCHC RDW Plt Count Lymph % (Auto) [place] % (Auto) Lymph # [place] # Baso # Seg Neutrophils % Seg Neuts % (Manual) Lymphocytes % (Manual) Monocytes % (Manual) Seg Neutrophils # Seg Neutrophils # Man Lymphocytes # (Manual) Monocytes # (Manual) Basophils # (Manual) Percent Retic PT INR APTT Heparin Anti-Xa Level POC ABG pH POC ABG pCO2 32.7 L POC ABG pO2 68 L Sodium Potassium Chloride Carbon Dioxide BUN Creatinine Glucose POC Glucose 113 H 161 H Calcium Phosphorus Iron TIBC Lactate Dehydrogenase Total Creatine Kinase NT-Pro-B Natriuret Pep Total Protein Albumin Vusqx-9-Yaljhlufy Bxtlp-9-Qysapnhon Beta Globulins PEP Interpretation Cholesterol LDL Cholesterol Direct Vitamin B12 Urine WBC (Auto) Urine Creatinine Crossmatch 04/17/16 04/17/16 04/17/16 05:41 08:37 11:46 WBC RBC Hgb Hct MCV MCH MCHC RDW Plt Count Lymph % (Auto) [place] % (Auto) Lymph # [place] # Baso # Seg Neutrophils % Seg Neuts % (Manual) Lymphocytes % (Manual) Monocytes % (Manual) Seg Neutrophils # Seg Neutrophils # Man Lymphocytes # (Manual) Monocytes # (Manual) Basophils # (Manual) Percent Retic PT 17.4 H INR 1.43 H APTT Heparin Anti-Xa Level POC ABG pH POC ABG pCO2 POC ABG pO2 Sodium Potassium Chloride Carbon Dioxide BUN Creatinine Glucose POC Glucose 154 H 138 H Calcium Phosphorus Iron TIBC Lactate Dehydrogenase Total Creatine Kinase NT-Pro-B Natriuret Pep Total Protein Albumin Hcrbf-5-Axylzlfnr Fdnlh-9-Zkcxzmeqv Beta Globulins PEP Interpretation Cholesterol LDL Cholesterol Direct Vitamin B12 Urine WBC (Auto) Urine Creatinine Crossmatch 04/17/16 04/17/16 04/17/16 12:17 12:17 21:20 WBC 16.5 H RBC 3.31 L Hgb 8.8 L Hct 26.9 L MCV 81 L MCH 27 L MCHC RDW 15.5 H Plt Count Lymph % (Auto) [place] % (Auto) Lymph # [place] # Baso # Seg Neutrophils % Seg Neuts % (Manual) Lymphocytes % (Manual) 3.0 L Monocytes % (Manual) Seg Neutrophils # Seg Neutrophils # Man 10.1 H Lymphocytes # (Manual) 0.5 L Monocytes # (Manual) Basophils # (Manual) Percent Retic PT INR APTT Heparin Anti-Xa Level 0.14 L POC ABG pH POC ABG pCO2 POC ABG pO2 Sodium Potassium Chloride Carbon Dioxide 21 L BUN 38 H Creatinine 1.8 H D Glucose 131 H POC Glucose Calcium 7.6 L Phosphorus Iron TIBC Lactate Dehydrogenase Total Creatine Kinase NT-Pro-B Natriuret Pep Total Protein Albumin Orgok-3-Xexsysaki Brmwf-4-Ooyuqxukb Beta Globulins PEP Interpretation Cholesterol LDL Cholesterol Direct Vitamin B12 Urine WBC (Auto) Urine Creatinine Crossmatch 04/17/16 04/17/16 04/18/16 23:38 23:41 00:21 WBC RBC Hgb Hct MCV MCH MCHC RDW Plt Count Lymph % (Auto) [place] % (Auto) Lymph # [place] # Baso # Seg Neutrophils % Seg Neuts % (Manual) Lymphocytes % (Manual) Monocytes % (Manual) Seg Neutrophils # Seg Neutrophils # Man Lymphocytes # (Manual) Monocytes # (Manual) Basophils # (Manual) Percent Retic PT INR APTT Heparin Anti-Xa Level POC ABG pH POC ABG pCO2 POC ABG pO2 Sodium Potassium Chloride Carbon Dioxide BUN Creatinine Glucose POC Glucose < 40 L < 40 L 223 H Calcium Phosphorus Iron TIBC Lactate Dehydrogenase Total Creatine Kinase NT-Pro-B Natriuret Pep Total Protein Albumin Hjqqp-6-Drhdzoise Dzmuo-2-Gphyexxuj Beta Globulins PEP Interpretation Cholesterol LDL Cholesterol Direct Vitamin B12 Urine WBC (Auto) Urine Creatinine Crossmatch 04/18/16 04/18/16 04/18/16 05:01 05:20 05:20 WBC 17.6 H RBC 3.44 L Hgb 9.1 L Hct 27.8 L MCV 81 L MCH 26 L MCHC RDW 15.5 H Plt Count Lymph % (Auto) 2.7 L [place] % (Auto) 8.3 H Lymph # 0.5 L [place] # 1.5 H Baso # Seg Neutrophils % 88.4 H Seg Neuts % (Manual) Lymphocytes % (Manual) Monocytes % (Manual) Seg Neutrophils # 15.6 H Seg Neutrophils # Man Lymphocytes # (Manual) Monocytes # (Manual) Basophils # (Manual) Percent Retic PT 17.4 H INR 1.43 H APTT Heparin Anti-Xa Level POC ABG pH 7.528 H POC ABG pCO2 27.9 L POC ABG pO2 Sodium Potassium Chloride Carbon Dioxide BUN Creatinine Glucose POC Glucose Calcium Phosphorus Iron TIBC Lactate Dehydrogenase Total Creatine Kinase NT-Pro-B Natriuret Pep Total Protein Albumin [place]-5-Macgynfjp Zieew-9-Wrbzcjpni Beta Globulins PEP Interpretation Cholesterol LDL Cholesterol Direct Vitamin B12 Urine WBC (Auto) Urine Creatinine Crossmatch 04/18/16 04/18/16 04/18/16 05:20 05:31 06:50 WBC RBC Hgb Hct MCV MCH MCHC RDW Plt Count Lymph % (Auto) [place] % (Auto) Lymph # [place] # Baso # Seg Neutrophils % Seg Neuts % (Manual) Lymphocytes % (Manual) Monocytes % (Manual) Seg Neutrophils # Seg Neutrophils # Man Lymphocytes # (Manual) Monocytes # (Manual) Basophils # (Manual) Percent Retic PT INR APTT Heparin Anti-Xa Level POC ABG pH POC ABG pCO2 POC ABG pO2 Sodium Potassium 3.4 L Chloride Carbon Dioxide 21 L BUN 22 H Creatinine Glucose POC Glucose 61 L 124 H Calcium 8.0 L Phosphorus Iron TIBC Lactate Dehydrogenase Total Creatine Kinase NT-Pro-B Natriuret Pep Total Protein Albumin Jzoyw-0-Ajjwsrkvp Wrlgg-7-Eyscpcmdp Beta Globulins PEP Interpretation Cholesterol LDL Cholesterol Direct Vitamin B12 Urine WBC (Auto) Urine Creatinine Crossmatch 04/18/16 04/18/16 04/19/16 17:42 22:40 00:31 WBC RBC Hgb Hct MCV MCH MCHC RDW Plt Count Lymph % (Auto) [place] % (Auto) Lymph # [place] # Baso # Seg Neutrophils % Seg Neuts % (Manual) Lymphocytes % (Manual) Monocytes % (Manual) Seg Neutrophils # Seg Neutrophils # Man Lymphocytes # (Manual) Monocytes # (Manual) Basophils # (Manual) Percent Retic PT INR APTT Heparin Anti-Xa Level < 0.10 L POC ABG pH POC ABG pCO2 POC ABG pO2 Sodium Potassium Chloride Carbon Dioxide BUN Creatinine Glucose POC Glucose 159 H 134 H Calcium Phosphorus Iron TIBC Lactate Dehydrogenase Total Creatine Kinase NT-Pro-B Natriuret Pep Total Protein Albumin Kzccy-8-Xqbyxdmpk Evpwh-1-Ksqzsryae Beta Globulins PEP Interpretation Cholesterol LDL Cholesterol Direct Vitamin B12 Urine WBC (Auto) Urine Creatinine Crossmatch 04/19/16 04/19/16 04/19/16 04:18 04:18 04:25 WBC 19.0 H RBC 3.58 L Hgb 9.3 L Hct 28.8 L MCV 80 L MCH 26 L MCHC RDW 15.5 H Plt Count Lymph % (Auto) 2.8 L [place] % (Auto) 7.4 H Lymph # 0.5 L [place] # 1.4 H Baso # Seg Neutrophils % 89.4 H Seg Neuts % (Manual) Lymphocytes % (Manual) Monocytes % (Manual) Seg Neutrophils # 17.0 H Seg Neutrophils # Man Lymphocytes # (Manual) Monocytes # (Manual) Basophils # (Manual) Percent Retic PT INR APTT Heparin Anti-Xa Level POC ABG pH 7.527 H POC ABG pCO2 27.1 L POC ABG pO2 Sodium Potassium Chloride Carbon Dioxide BUN 22 H Creatinine Glucose 215 H POC Glucose Calcium 8.0 L Phosphorus Iron TIBC Lactate Dehydrogenase Total Creatine Kinase NT-Pro-B Natriuret Pep Total Protein Albumin Ludko-7-Qphuuqdyf Kuesk-7-Hvswoswur Beta Globulins PEP Interpretation Cholesterol LDL Cholesterol Direct Vitamin B12 Urine WBC (Auto) Urine Creatinine Crossmatch 04/19/16 04/19/16 04/19/16 05:45 08:10 14:08 WBC RBC Hgb Hct MCV MCH MCHC RDW Plt Count Lymph % (Auto) [place] % (Auto) Lymph # [place] # Baso # Seg Neutrophils % Seg Neuts % (Manual) Lymphocytes % (Manual) Monocytes % (Manual) Seg Neutrophils # Seg Neutrophils # Man Lymphocytes # (Manual) Monocytes # (Manual) Basophils # (Manual) Percent Retic PT 22.1 H INR 1.93 H APTT Heparin Anti-Xa Level 0.17 L POC ABG pH POC ABG pCO2 POC ABG pO2 Sodium Potassium Chloride Carbon Dioxide BUN Creatinine Glucose POC Glucose 196 H 318 H Calcium Phosphorus Iron TIBC Lactate Dehydrogenase Total Creatine Kinase NT-Pro-B Natriuret Pep Total Protein Albumin Yjkxc-5-Fnyxehaht Dirsu-0-Qofjmpkdt Beta Globulins PEP Interpretation Cholesterol LDL Cholesterol Direct Vitamin B12 Urine WBC (Auto) Urine Creatinine Crossmatch 04/19/16 04/20/16 04/20/16 17:27 03:55 03:55 WBC 18.5 H RBC 3.19 L Hgb 8.4 L Hct 25.7 L MCV 80 L MCH 26 L MCHC RDW 15.9 H Plt Count Lymph % (Auto) 4.3 L [place] % (Auto) 10.1 H Lymph # 0.8 L [place] # 1.9 H Baso # Seg Neutrophils % 85.2 H Seg Neuts % (Manual) Lymphocytes % (Manual) Monocytes % (Manual) Seg Neutrophils # 15.8 H Seg Neutrophils # Man Lymphocytes # (Manual) Monocytes # (Manual) Basophils # (Manual) Percent Retic PT 22.0 H INR 1.92 H APTT Heparin Anti-Xa Level 0.14 L POC ABG pH POC ABG pCO2 POC ABG pO2 Sodium Potassium Chloride Carbon Dioxide BUN Creatinine Glucose POC Glucose 230 H Calcium Phosphorus Iron TIBC Lactate Dehydrogenase Total Creatine Kinase NT-Pro-B Natriuret Pep Total Protein Albumin Sflri-0-Rdjpbzsti Hvurq-9-Ltqbuyrdx Beta Globulins PEP Interpretation Cholesterol LDL Cholesterol Direct Vitamin B12 Urine WBC (Auto) Urine Creatinine Crossmatch 04/20/16 04/20/16 04/20/16 03:55 04:16 05:52 WBC RBC Hgb Hct MCV MCH MCHC RDW Plt Count Lymph % (Auto) [place] % (Auto) Lymph # [place] # Baso # Seg Neutrophils % Seg Neuts % (Manual) Lymphocytes % (Manual) Monocytes % (Manual) Seg Neutrophils # Seg Neutrophils # Man Lymphocytes # (Manual) Monocytes # (Manual) Basophils # (Manual) Percent Retic PT INR APTT Heparin Anti-Xa Level POC ABG pH 7.474 H POC ABG pCO2 26.5 L POC ABG pO2 Sodium Potassium Chloride Carbon Dioxide 18 L BUN 38 H Creatinine 2.7 H D Glucose 159 H POC Glucose 214 H Calcium 8.0 L Phosphorus Iron TIBC Lactate Dehydrogenase Total Creatine Kinase NT-Pro-B Natriuret Pep Total Protein Albumin Ocmlm-7-Lrclsqvnm Pmejq-9-Dxizexmif Beta Globulins PEP Interpretation Cholesterol LDL Cholesterol Direct Vitamin B12 Urine WBC (Auto) Urine Creatinine Crossmatch 04/20/16 04/20/16 04/20/16 10:32 11:27 11:50 WBC RBC Hgb Hct MCV MCH MCHC RDW Plt Count Lymph % (Auto) [place] % (Auto) Lymph # [place] # Baso # Seg Neutrophils % Seg Neuts % (Manual) Lymphocytes % (Manual) Monocytes % (Manual) Seg Neutrophils # Seg Neutrophils # Man Lymphocytes # (Manual) Monocytes # (Manual) Basophils # (Manual) Percent Retic PT INR APTT Heparin Anti-Xa Level POC ABG pH POC ABG pCO2 POC ABG pO2 Sodium Potassium Chloride Carbon Dioxide 20 L BUN 45 H Creatinine 3.0 H Glucose 215 H POC Glucose 248 H Calcium 8.0 L Phosphorus Iron TIBC Lactate Dehydrogenase Total Creatine Kinase NT-Pro-B Natriuret Pep Total Protein Albumin Amali-5-Qroucklgg Akpsu-9-Wynybzuzo Beta Globulins PEP Interpretation Cholesterol LDL Cholesterol Direct Vitamin B12 Urine WBC (Auto) Urine Creatinine 85.5 H Crossmatch 04/20/16 04/21/16 04/21/16 16:59 00:13 04:29 WBC RBC Hgb Hct MCV MCH MCHC RDW Plt Count Lymph % (Auto) [place] % (Auto) Lymph # [place] # Baso # Seg Neutrophils % Seg Neuts % (Manual) Lymphocytes % (Manual) Monocytes % (Manual) Seg Neutrophils # Seg Neutrophils # Man Lymphocytes # (Manual) Monocytes # (Manual) Basophils # (Manual) Percent Retic PT 18.1 H INR 1.50 H APTT Heparin Anti-Xa Level 0.10 L POC ABG pH POC ABG pCO2 POC ABG pO2 Sodium Potassium Chloride Carbon Dioxide BUN Creatinine Glucose POC Glucose 312 H 287 H Calcium Phosphorus Iron TIBC Lactate Dehydrogenase Total Creatine Kinase NT-Pro-B Natriuret Pep Total Protein Albumin Cqikv-1-Ngmycekzz Qcoai-9-Tvlcotmci Beta Globulins PEP Interpretation Cholesterol LDL Cholesterol Direct Vitamin B12 Urine WBC (Auto) Urine Creatinine Crossmatch 04/21/16 04/21/16 04/21/16 04:29 04:29 04:55 WBC 15.4 H RBC 3.24 L Hgb 8.4 L Hct 25.6 L MCV 79 L MCH 26 L MCHC RDW 16.1 H Plt Count Lymph % (Auto) 6.8 L [place] % (Auto) 12.9 H Lymph # 1.0 L [place] # 2.0 H Baso # Seg Neutrophils % 79.8 H Seg Neuts % (Manual) Lymphocytes % (Manual) Monocytes % (Manual) Seg Neutrophils # 12.3 H Seg Neutrophils # Man Lymphocytes # (Manual) Monocytes # (Manual) Basophils # (Manual) Percent Retic PT INR APTT Heparin Anti-Xa Level POC ABG pH 7.512 H POC ABG pCO2 25.4 L POC ABG pO2 Sodium 135 L Potassium Chloride Carbon Dioxide 18 L BUN 57 H Creatinine 3.9 H Glucose 202 H POC Glucose Calcium 8.0 L Phosphorus Iron TIBC Lactate Dehydrogenase Total Creatine Kinase NT-Pro-B Natriuret Pep Total Protein Albumin Jkxss-8-Whjhenwop Qtkcl-0-Btiqevrqe Beta Globulins PEP Interpretation Cholesterol LDL Cholesterol Direct Vitamin B12 Urine WBC (Auto) Urine Creatinine Crossmatch 04/21/16 04/21/16 04/21/16 05:20 12:08 12:16 WBC RBC Hgb Hct MCV MCH MCHC RDW Plt Count Lymph % (Auto) [place] % (Auto) Lymph # [place] # Baso # Seg Neutrophils % Seg Neuts % (Manual) Lymphocytes % (Manual) Monocytes % (Manual) Seg Neutrophils # Seg Neutrophils # Man Lymphocytes # (Manual) Monocytes # (Manual) Basophils # (Manual) Percent Retic PT INR APTT Heparin Anti-Xa Level 0.16 L POC ABG pH POC ABG pCO2 POC ABG pO2 Sodium Potassium Chloride Carbon Dioxide BUN Creatinine Glucose POC Glucose 203 H 221 H Calcium Phosphorus Iron TIBC Lactate Dehydrogenase Total Creatine Kinase NT-Pro-B Natriuret Pep Total Protein Albumin Cmrpq-3-Zdhwdkjum Tnsjj-8-Flwwnvqcz Beta Globulins PEP Interpretation Cholesterol LDL Cholesterol Direct Vitamin B12 Urine WBC (Auto) Urine Creatinine Crossmatch 04/21/16 04/22/16 04/22/16 17:22 05:01 05:20 WBC RBC Hgb Hct MCV MCH MCHC RDW Plt Count Lymph % (Auto) [place] % (Auto) Lymph # [place] # Baso # Seg Neutrophils % Seg Neuts % (Manual) Lymphocytes % (Manual) Monocytes % (Manual) Seg Neutrophils # Seg Neutrophils # Man Lymphocytes # (Manual) Monocytes # (Manual) Basophils # (Manual) Percent Retic PT 17.5 H INR 1.44 H APTT Heparin Anti-Xa Level POC ABG pH 7.460 H POC ABG pCO2 27.9 L POC ABG pO2 Sodium Potassium Chloride Carbon Dioxide BUN Creatinine Glucose POC Glucose 189 H Calcium Phosphorus Iron TIBC Lactate Dehydrogenase Total Creatine Kinase NT-Pro-B Natriuret Pep Total Protein Albumin Ikibp-5-Wioxcltci Odzeg-8-Rcevmdlcb Beta Globulins PEP Interpretation Cholesterol LDL Cholesterol Direct Vitamin B12 Urine WBC (Auto) Urine Creatinine Crossmatch 04/22/16 04/22/16 04/22/16 05:43 06:40 08:08 WBC RBC Hgb Hct MCV MCH MCHC RDW Plt Count Lymph % (Auto) [place] % (Auto) Lymph # [place] # Baso # Seg Neutrophils % Seg Neuts % (Manual) Lymphocytes % (Manual) Monocytes % (Manual) Seg Neutrophils # Seg Neutrophils # Man Lymphocytes # (Manual) Monocytes # (Manual) Basophils # (Manual) Percent Retic PT INR APTT Heparin Anti-Xa Level POC ABG pH POC ABG pCO2 POC ABG pO2 Sodium Potassium Chloride Carbon Dioxide BUN Creatinine Glucose POC Glucose 56 L 136 H 134 H Calcium Phosphorus Iron TIBC Lactate Dehydrogenase Total Creatine Kinase NT-Pro-B Natriuret Pep Total Protein Albumin Cfzwj-2-Trizedpef Kthpg-4-Yuzqlpqdm Beta Globulins PEP Interpretation Cholesterol LDL Cholesterol Direct Vitamin B12 Urine WBC (Auto) Urine Creatinine Crossmatch 04/22/16 04/22/16 04/22/16 11:18 12:10 18:17 WBC RBC Hgb Hct MCV MCH MCHC RDW Plt Count Lymph % (Auto) [place] % (Auto) Lymph # [place] # Baso # Seg Neutrophils % Seg Neuts % (Manual) Lymphocytes % (Manual) Monocytes % (Manual) Seg Neutrophils # Seg Neutrophils # Man Lymphocytes # (Manual) Monocytes # (Manual) Basophils # (Manual) Percent Retic PT INR APTT Heparin Anti-Xa Level 0.12 L POC ABG pH POC ABG pCO2 POC ABG pO2 Sodium Potassium Chloride Carbon Dioxide BUN Creatinine Glucose POC Glucose 142 H 227 H Calcium Phosphorus Iron TIBC Lactate Dehydrogenase Total Creatine Kinase NT-Pro-B Natriuret Pep Total Protein Albumin Gjhoz-4-Evlqdiysk Qgtqb-6-Rulwitwbq Beta Globulins PEP Interpretation Cholesterol LDL Cholesterol Direct Vitamin B12 Urine WBC (Auto) Urine Creatinine Crossmatch 04/22/16 04/22/16 04/23/16 22:28 23:47 04:49 WBC RBC Hgb Hct MCV MCH MCHC RDW Plt Count Lymph % (Auto) [place] % (Auto) Lymph # [place] # Baso # Seg Neutrophils % Seg Neuts % (Manual) Lymphocytes % (Manual) Monocytes % (Manual) Seg Neutrophils # Seg Neutrophils # Man Lymphocytes # (Manual) Monocytes # (Manual) Basophils # (Manual) Percent Retic PT INR APTT Heparin Anti-Xa Level 0.16 L POC ABG pH POC ABG pCO2 32.6 L POC ABG pO2 122 H Sodium Potassium Chloride Carbon Dioxide BUN Creatinine Glucose POC Glucose 266 H Calcium Phosphorus Iron TIBC Lactate Dehydrogenase Total Creatine Kinase NT-Pro-B Natriuret Pep Total Protein Albumin Juerc-9-Nsmqysmyq Fodkc-6-Ztysmutcd Beta Globulins PEP Interpretation Cholesterol LDL Cholesterol Direct Vitamin B12 Urine WBC (Auto) Urine Creatinine Crossmatch 04/23/16 04/23/16 04/23/16 05:41 08:05 08:34 WBC RBC Hgb Hct MCV MCH MCHC RDW Plt Count Lymph % (Auto) [place] % (Auto) Lymph # [place] # Baso # Seg Neutrophils % Seg Neuts % (Manual) Lymphocytes % (Manual) Monocytes % (Manual) Seg Neutrophils # Seg Neutrophils # Man Lymphocytes # (Manual) Monocytes # (Manual) Basophils # (Manual) Percent Retic PT INR APTT Heparin Anti-Xa Level POC ABG pH POC ABG pCO2 POC ABG pO2 Sodium Potassium Chloride 109.5 H Carbon Dioxide 21 L BUN 23 H Creatinine Glucose 227 H POC Glucose 227 H 224 H Calcium 8.2 L Phosphorus Iron TIBC Lactate Dehydrogenase Total Creatine Kinase NT-Pro-B Natriuret Pep Total Protein Albumin Ckxfu-1-Ahgidvzwy Nzvmn-5-Fxomcsgrh Beta Globulins PEP Interpretation Cholesterol LDL Cholesterol Direct Vitamin B12 Urine WBC (Auto) Urine Creatinine Crossmatch 04/23/16 04/23/16 04/23/16 10:45 11:37 22:49 WBC RBC Hgb Hct MCV MCH MCHC RDW Plt Count Lymph % (Auto) [place] % (Auto) Lymph # [place] # Baso # Seg Neutrophils % Seg Neuts % (Manual) Lymphocytes % (Manual) Monocytes % (Manual) Seg Neutrophils # Seg Neutrophils # Man Lymphocytes # (Manual) Monocytes # (Manual) Basophils # (Manual) Percent Retic PT 15.9 H INR 1.28 H APTT Heparin Anti-Xa Level 0.12 L POC ABG pH POC ABG pCO2 POC ABG pO2 Sodium Potassium Chloride Carbon Dioxide BUN Creatinine Glucose POC Glucose 256 H Calcium Phosphorus Iron TIBC Lactate Dehydrogenase Total Creatine Kinase NT-Pro-B Natriuret Pep Total Protein Albumin Afkzy-2-Sdalrdbuj Heqwg-4-Swrfjmzug Beta Globulins PEP Interpretation Cholesterol LDL Cholesterol Direct Vitamin B12 Urine WBC (Auto) Urine Creatinine Crossmatch 04/23/16 04/24/16 04/24/16 23:59 05:29 06:03 WBC RBC Hgb Hct MCV MCH MCHC RDW Plt Count Lymph % (Auto) [place] % (Auto) Lymph # [place] # Baso # Seg Neutrophils % Seg Neuts % (Manual) Lymphocytes % (Manual) Monocytes % (Manual) Seg Neutrophils # Seg Neutrophils # Man Lymphocytes # (Manual) Monocytes # (Manual) Basophils # (Manual) Percent Retic PT INR APTT Heparin Anti-Xa Level POC ABG pH 7.464 H POC ABG pCO2 32.4 L POC ABG pO2 115 H Sodium Potassium Chloride Carbon Dioxide BUN Creatinine Glucose POC Glucose 176 H 256 H Calcium Phosphorus Iron TIBC Lactate Dehydrogenase Total Creatine Kinase NT-Pro-B Natriuret Pep Total Protein Albumin Lxcou-4-Nvanyeonp Jepvr-6-Kwlqzotcu Beta Globulins PEP Interpretation Cholesterol LDL Cholesterol Direct Vitamin B12 Urine WBC (Auto) Urine Creatinine Crossmatch 04/24/16 04/24/16 04/24/16 07:59 12:10 17:17 WBC RBC Hgb Hct MCV MCH MCHC RDW Plt Count Lymph % (Auto) [place] % (Auto) Lymph # [place] # Baso # Seg Neutrophils % Seg Neuts % (Manual) Lymphocytes % (Manual) Monocytes % (Manual) Seg Neutrophils # Seg Neutrophils # Man Lymphocytes # (Manual) Monocytes # (Manual) Basophils # (Manual) Percent Retic PT INR APTT Heparin Anti-Xa Level 0.18 L POC ABG pH POC ABG pCO2 POC ABG pO2 Sodium Potassium Chloride Carbon Dioxide BUN Creatinine Glucose POC Glucose 304 H 325 H Calcium Phosphorus Iron TIBC Lactate Dehydrogenase Total Creatine Kinase NT-Pro-B Natriuret Pep Total Protein Albumin Qefql-0-Fvzdgdpkr Dbkbt-2-Xrfmvagbm Beta Globulins PEP Interpretation Cholesterol LDL Cholesterol Direct Vitamin B12 Urine WBC (Auto) Urine Creatinine Crossmatch 04/25/16 04/25/16 04/25/16 00:52 06:40 06:44 WBC RBC Hgb Hct MCV MCH MCHC RDW Plt Count Lymph % (Auto) [place] % (Auto) Lymph # [place] # Baso # Seg Neutrophils % Seg Neuts % (Manual) Lymphocytes % (Manual) Monocytes % (Manual) Seg Neutrophils # Seg Neutrophils # Man Lymphocytes # (Manual) Monocytes # (Manual) Basophils # (Manual) Percent Retic PT INR APTT Heparin Anti-Xa Level 0.11 L POC ABG pH POC ABG pCO2 POC ABG pO2 Sodium Potassium Chloride Carbon Dioxide BUN Creatinine Glucose POC Glucose 212 H 184 H Calcium Phosphorus Iron TIBC Lactate Dehydrogenase Total Creatine Kinase NT-Pro-B Natriuret Pep Total Protein Albumin Xivms-3-Qlssjlhrl Xdjiw-3-Cvmzoiurr Beta Globulins PEP Interpretation Cholesterol LDL Cholesterol Direct Vitamin B12 Urine WBC (Auto) Urine Creatinine Crossmatch 04/25/16 04/25/16 04/25/16 11:40 13:26 17:27 WBC RBC Hgb Hct MCV MCH MCHC RDW Plt Count Lymph % (Auto) [place] % (Auto) Lymph # [place] # Baso # Seg Neutrophils % Seg Neuts % (Manual) Lymphocytes % (Manual) Monocytes % (Manual) Seg Neutrophils # Seg Neutrophils # Man Lymphocytes # (Manual) Monocytes # (Manual) Basophils # (Manual) Percent Retic PT INR APTT Heparin Anti-Xa Level 0.21 L POC ABG pH POC ABG pCO2 POC ABG pO2 Sodium Potassium Chloride Carbon Dioxide BUN Creatinine Glucose POC Glucose 206 H 204 H Calcium Phosphorus Iron TIBC Lactate Dehydrogenase Total Creatine Kinase NT-Pro-B Natriuret Pep Total Protein Albumin Yskua-7-Rpdnwhtwj Ocjtv-4-Ykyjpoels Beta Globulins PEP Interpretation Cholesterol LDL Cholesterol Direct Vitamin B12 Urine WBC (Auto) Urine Creatinine Crossmatch 04/25/16 04/26/16 04/26/16 23:46 06:31 11:51 WBC RBC Hgb Hct MCV MCH MCHC RDW Plt Count Lymph % (Auto) [place] % (Auto) Lymph # [place] # Baso # Seg Neutrophils % Seg Neuts % (Manual) Lymphocytes % (Manual) Monocytes % (Manual) Seg Neutrophils # Seg Neutrophils # Man Lymphocytes # (Manual) Monocytes # (Manual) Basophils # (Manual) Percent Retic PT INR APTT Heparin Anti-Xa Level POC ABG pH POC ABG pCO2 POC ABG pO2 Sodium Potassium Chloride Carbon Dioxide BUN Creatinine Glucose POC Glucose 162 H 148 H 178 H Calcium Phosphorus Iron TIBC Lactate Dehydrogenase Total Creatine Kinase NT-Pro-B Natriuret Pep Total Protein Albumin Seboh-7-Vlfaitxaw Pbipy-6-Ueapyjdso Beta Globulins PEP Interpretation Cholesterol LDL Cholesterol Direct Vitamin B12 Urine WBC (Auto) Urine Creatinine Crossmatch 04/26/16 04/26/16 04/26/16 12:17 16:16 18:14 WBC RBC Hgb Hct MCV MCH MCHC RDW Plt Count Lymph % (Auto) [place] % (Auto) Lymph # [place] # Baso # Seg Neutrophils % Seg Neuts % (Manual) Lymphocytes % (Manual) Monocytes % (Manual) Seg Neutrophils # Seg Neutrophils # Man Lymphocytes # (Manual) Monocytes # (Manual) Basophils # (Manual) Percent Retic PT INR APTT Heparin Anti-Xa Level POC ABG pH 7.513 H POC ABG pCO2 POC ABG pO2 76 L Sodium Potassium Chloride Carbon Dioxide BUN Creatinine Glucose POC Glucose 186 H 172 H Calcium Phosphorus Iron TIBC Lactate Dehydrogenase Total Creatine Kinase NT-Pro-B Natriuret Pep Total Protein Albumin Luqdn-1-Tbvvfjujk Gkjka-4-Rmvfnddbk Beta Globulins PEP Interpretation Cholesterol LDL Cholesterol Direct Vitamin B12 Urine WBC (Auto) Urine Creatinine Crossmatch 04/26/16 04/26/16 04/27/16 19:27 23:28 04:21 WBC 13.1 H RBC 2.99 L Hgb 7.8 L Hct 24.0 L MCV 81 L MCH 26 L MCHC RDW 16.7 H Plt Count 486 H Lymph % (Auto) 12.5 L [place] % (Auto) 7.9 H Lymph # [place] # 1.0 H Baso # Seg Neutrophils % 77.5 H Seg Neuts % (Manual) Lymphocytes % (Manual) Monocytes % (Manual) Seg Neutrophils # 10.2 H Seg Neutrophils # Man Lymphocytes # (Manual) Monocytes # (Manual) Basophils # (Manual) Percent Retic PT INR APTT Heparin Anti-Xa Level 0.22 L POC ABG pH POC ABG pCO2 POC ABG pO2 Sodium Potassium Chloride Carbon Dioxide BUN Creatinine Glucose POC Glucose 141 H Calcium Phosphorus Iron TIBC Lactate Dehydrogenase Total Creatine Kinase NT-Pro-B Natriuret Pep Total Protein Albumin Idfoa-8-Giqznecob Payty-3-Braoquwzn Beta Globulins PEP Interpretation Cholesterol LDL Cholesterol Direct Vitamin B12 Urine WBC (Auto) Urine Creatinine Crossmatch 04/27/16 04/27/16 04/27/16 04:21 05:46 11:04 WBC RBC Hgb Hct MCV MCH MCHC RDW Plt Count Lymph % (Auto) [place] % (Auto) Lymph # [place] # Baso # Seg Neutrophils % Seg Neuts % (Manual) Lymphocytes % (Manual) Monocytes % (Manual) Seg Neutrophils # Seg Neutrophils # Man Lymphocytes # (Manual) Monocytes # (Manual) Basophils # (Manual) Percent Retic PT INR APTT Heparin Anti-Xa Level POC ABG pH 7.489 H POC ABG pCO2 POC ABG pO2 71 L Sodium Potassium Chloride Carbon Dioxide BUN Creatinine 0.6 L Glucose 187 H POC Glucose 192 H Calcium 8.0 L Phosphorus Iron TIBC Lactate Dehydrogenase Total Creatine Kinase NT-Pro-B Natriuret Pep Total Protein 6.0 L Albumin 2.0 L Zvpxf-4-Wuhdcwbhi Qncxg-8-Sowoddsht Beta Globulins PEP Interpretation Cholesterol LDL Cholesterol Direct Vitamin B12 Urine WBC (Auto) Urine Creatinine Crossmatch 04/27/16 04/27/16 04/27/16 14:12 21:58 23:38 WBC RBC Hgb Hct MCV MCH MCHC RDW Plt Count Lymph % (Auto) [place] % (Auto) Lymph # [place] # Baso # Seg Neutrophils % Seg Neuts % (Manual) Lymphocytes % (Manual) Monocytes % (Manual) Seg Neutrophils # Seg Neutrophils # Man Lymphocytes # (Manual) Monocytes # (Manual) Basophils # (Manual) Percent Retic PT INR APTT Heparin Anti-Xa Level 0.24 L POC ABG pH POC ABG pCO2 POC ABG pO2 Sodium Potassium Chloride Carbon Dioxide BUN Creatinine Glucose POC Glucose 216 H 181 H Calcium Phosphorus Iron TIBC Lactate Dehydrogenase Total Creatine Kinase NT-Pro-B Natriuret Pep Total Protein Albumin Yeell-1-Yebtjyjna Nlgck-6-Jhawztoph Beta Globulins PEP Interpretation Cholesterol LDL Cholesterol Direct Vitamin B12 Urine WBC (Auto) Urine Creatinine Crossmatch 04/28/16 04/28/16 04/28/16 04:28 05:52 11:31 WBC RBC Hgb Hct MCV MCH MCHC RDW Plt Count Lymph % (Auto) [place] % (Auto) Lymph # [place] # Baso # Seg Neutrophils % Seg Neuts % (Manual) Lymphocytes % (Manual) Monocytes % (Manual) Seg Neutrophils # Seg Neutrophils # Man Lymphocytes # (Manual) Monocytes # (Manual) Basophils # (Manual) Percent Retic PT INR APTT Heparin Anti-Xa Level POC ABG pH 7.524 H POC ABG pCO2 POC ABG pO2 Sodium Potassium Chloride Carbon Dioxide BUN Creatinine Glucose POC Glucose 254 H 280 H Calcium Phosphorus Iron TIBC Lactate Dehydrogenase Total Creatine Kinase NT-Pro-B Natriuret Pep Total Protein Albumin Tajhz-5-Ggluncsmz Fnaft-6-Egenzujgp Beta Globulins PEP Interpretation Cholesterol LDL Cholesterol Direct Vitamin B12 Urine WBC (Auto) Urine Creatinine Crossmatch 04/28/16 04/28/16 04/29/16 17:30 19:52 00:47 WBC RBC Hgb Hct MCV MCH MCHC RDW Plt Count Lymph % (Auto) [place] % (Auto) Lymph # [place] # Baso # Seg Neutrophils % Seg Neuts % (Manual) Lymphocytes % (Manual) Monocytes % (Manual) Seg Neutrophils # Seg Neutrophils # Man Lymphocytes # (Manual) Monocytes # (Manual) Basophils # (Manual) Percent Retic PT INR APTT Heparin Anti-Xa Level 0.15 L POC ABG pH POC ABG pCO2 POC ABG pO2 Sodium Potassium Chloride Carbon Dioxide BUN Creatinine Glucose POC Glucose 208 H 265 H Calcium Phosphorus Iron TIBC Lactate Dehydrogenase Total Creatine Kinase NT-Pro-B Natriuret Pep Total Protein Albumin Ldmpy-7-Shdcujpja Enosq-5-Eidomtlhk Beta Globulins PEP Interpretation Cholesterol LDL Cholesterol Direct Vitamin B12 Urine WBC (Auto) Urine Creatinine Crossmatch 04/29/16 04/29/16 04/29/16 04:00 04:00 04:29 WBC 13.4 H RBC 2.56 L Hgb 6.9 L Hct 20.6 L MCV 81 L MCH 27 L MCHC RDW 16.2 H Plt Count 513 H Lymph % (Auto) 10.0 L [place] % (Auto) 12.0 H Lymph # [place] # 1.6 H Baso # Seg Neutrophils % 77.1 H Seg Neuts % (Manual) Lymphocytes % (Manual) Monocytes % (Manual) Seg Neutrophils # 10.4 H Seg Neutrophils # Man Lymphocytes # (Manual) Monocytes # (Manual) Basophils # (Manual) Percent Retic PT INR APTT Heparin Anti-Xa Level POC ABG pH 7.501 H POC ABG pCO2 POC ABG pO2 76 L Sodium Potassium Chloride Carbon Dioxide BUN 27 H Creatinine Glucose 204 H POC Glucose Calcium 8.1 L Phosphorus Iron TIBC Lactate Dehydrogenase Total Creatine Kinase NT-Pro-B Natriuret Pep Total Protein Albumin Orwor-8-Nwrqujeqs Zobkd-4-Mmjzypgvu Beta Globulins PEP Interpretation Cholesterol LDL Cholesterol Direct Vitamin B12 Urine WBC (Auto) Urine Creatinine Crossmatch 04/29/16 04/29/16 04/29/16 06:03 10:05 10:16 WBC RBC Hgb Hct MCV MCH MCHC RDW Plt Count Lymph % (Auto) [place] % (Auto) Lymph # [place] # Baso # Seg Neutrophils % Seg Neuts % (Manual) Lymphocytes % (Manual) Monocytes % (Manual) Seg Neutrophils # Seg Neutrophils # Man Lymphocytes # (Manual) Monocytes # (Manual) Basophils # (Manual) Percent Retic 3.68 H PT INR APTT Heparin Anti-Xa Level POC ABG pH POC ABG pCO2 POC ABG pO2 Sodium Potassium Chloride Carbon Dioxide BUN Creatinine Glucose POC Glucose 192 H Calcium Phosphorus Iron TIBC Lactate Dehydrogenase Total Creatine Kinase NT-Pro-B Natriuret Pep Total Protein Albumin Kgsgr-0-Jwelrfgms Jefvo-2-Kxstxlvmd Beta Globulins PEP Interpretation Cholesterol LDL Cholesterol Direct Vitamin B12 Urine WBC (Auto) Urine Creatinine Crossmatch See Detail 04/29/16 04/29/16 04/29/16 10:16 10:16 11:23 WBC RBC Hgb Hct MCV MCH MCHC RDW Plt Count Lymph % (Auto) [place] % (Auto) Lymph # [place] # Baso # Seg Neutrophils % Seg Neuts % (Manual) Lymphocytes % (Manual) Monocytes % (Manual) Seg Neutrophils # Seg Neutrophils # Man Lymphocytes # (Manual) Monocytes # (Manual) Basophils # (Manual) Percent Retic PT INR APTT Heparin Anti-Xa Level POC ABG pH POC ABG pCO2 POC ABG pO2 Sodium Potassium Chloride Carbon Dioxide BUN Creatinine Glucose POC Glucose 116 H Calcium Phosphorus Iron 10 L TIBC 138 L Lactate Dehydrogenase 204 H Total Creatine Kinase NT-Pro-B Natriuret Pep Total Protein Albumin Pefks-0-Vlqafrsfi Hekgu-3-Fwaxdancm Beta Globulins PEP Interpretation Cholesterol LDL Cholesterol Direct Vitamin B12 1005 H Urine WBC (Auto) Urine Creatinine Crossmatch 04/29/16 04/29/16 04/30/16 17:34 23:19 03:19 WBC RBC Hgb 9.0 L Hct 26.7 L D MCV MCH MCHC RDW Plt Count Lymph % (Auto) [place] % (Auto) Lymph # [place] # Baso # Seg Neutrophils % Seg Neuts % (Manual) Lymphocytes % (Manual) Monocytes % (Manual) Seg Neutrophils # Seg Neutrophils # Man Lymphocytes # (Manual) Monocytes # (Manual) Basophils # (Manual) Percent Retic PT INR APTT Heparin Anti-Xa Level POC ABG pH POC ABG pCO2 POC ABG pO2 Sodium Potassium Chloride Carbon Dioxide BUN Creatinine Glucose POC Glucose 142 H 242 H Calcium Phosphorus Iron TIBC Lactate Dehydrogenase Total Creatine Kinase NT-Pro-B Natriuret Pep Total Protein Albumin Ahxes-8-Ahbfkryth Cdphw-7-Tegqghanz Beta Globulins PEP Interpretation Cholesterol LDL Cholesterol Direct Vitamin B12 Urine WBC (Auto) Urine Creatinine Crossmatch 04/30/16 04/30/16 04/30/16 04:10 04:10 04:32 WBC 13.8 H RBC 3.54 L Hgb 9.3 L Hct 29.1 L MCV 82 L MCH 26 L MCHC RDW 16.5 H Plt Count 535 H Lymph % (Auto) 7.5 L [place] % (Auto) 13.8 H Lymph # 1.0 L [place] # 1.9 H Baso # Seg Neutrophils % 78.0 H Seg Neuts % (Manual) Lymphocytes % (Manual) Monocytes % (Manual) Seg Neutrophils # 10.7 H Seg Neutrophils # Man Lymphocytes # (Manual) Monocytes # (Manual) Basophils # (Manual) Percent Retic PT INR APTT Heparin Anti-Xa Level POC ABG pH 7.519 H POC ABG pCO2 33.6 L POC ABG pO2 79 L Sodium 146 H Potassium Chloride Carbon Dioxide BUN Creatinine 0.7 L Glucose 242 H POC Glucose Calcium 8.3 L Phosphorus Iron TIBC Lactate Dehydrogenase Total Creatine Kinase NT-Pro-B Natriuret Pep Total Protein Albumin Vspsi-3-Cxczmzvpp Qsbqe-4-Cvkavcbwy Beta Globulins PEP Interpretation Cholesterol LDL Cholesterol Direct Vitamin B12 Urine WBC (Auto) Urine Creatinine Crossmatch 04/30/16 04/30/16 04/30/16 05:33 11:23 17:26 WBC RBC Hgb Hct MCV MCH MCHC RDW Plt Count Lymph % (Auto) [place] % (Auto) Lymph # [place] # Baso # Seg Neutrophils % Seg Neuts % (Manual) Lymphocytes % (Manual) Monocytes % (Manual) Seg Neutrophils # Seg Neutrophils # Man Lymphocytes # (Manual) Monocytes # (Manual) Basophils # (Manual) Percent Retic PT INR APTT Heparin Anti-Xa Level POC ABG pH POC ABG pCO2 POC ABG pO2 Sodium Potassium Chloride Carbon Dioxide BUN Creatinine Glucose POC Glucose 242 H 305 H 281 H Calcium Phosphorus Iron TIBC Lactate Dehydrogenase Total Creatine Kinase NT-Pro-B Natriuret Pep Total Protein Albumin Cereu-8-Pvfhnbhdh Dnnhr-6-Loiwfqmgy Beta Globulins PEP Interpretation Cholesterol LDL Cholesterol Direct Vitamin B12 Urine WBC (Auto) Urine Creatinine Crossmatch 04/30/16 05/01/16 05/01/16 23:53 04:00 04:00 WBC 15.9 H RBC 2.99 L Hgb 7.9 L Hct 24.4 L MCV 82 L MCH 26 L MCHC RDW 16.9 H Plt Count 481 H Lymph % (Auto) 9.3 L [place] % (Auto) 15.0 H Lymph # [place] # 2.4 H Baso # Seg Neutrophils % 74.9 H Seg Neuts % (Manual) Lymphocytes % (Manual) Monocytes % (Manual) Seg Neutrophils # 11.9 H Seg Neutrophils # Man Lymphocytes # (Manual) Monocytes # (Manual) Basophils # (Manual) Percent Retic PT INR APTT Heparin Anti-Xa Level POC ABG pH POC ABG pCO2 POC ABG pO2 Sodium 147 H Potassium Chloride 107.8 H Carbon Dioxide BUN 22 H Creatinine 0.7 L Glucose 229 H POC Glucose 207 H Calcium 8.2 L Phosphorus Iron TIBC Lactate Dehydrogenase Total Creatine Kinase NT-Pro-B Natriuret Pep Total Protein Albumin Mxoiw-0-Ndslcwasp Dfeak-4-Qcwofksit Beta Globulins PEP Interpretation Cholesterol LDL Cholesterol Direct Vitamin B12 Urine WBC (Auto) Urine Creatinine Crossmatch 05/01/16 05/01/16 05/01/16 05:12 07:41 12:33 WBC RBC Hgb Hct MCV MCH MCHC RDW Plt Count Lymph % (Auto) [place] % (Auto) Lymph # [place] # Baso # Seg Neutrophils % Seg Neuts % (Manual) Lymphocytes % (Manual) Monocytes % (Manual) Seg Neutrophils # Seg Neutrophils # Man Lymphocytes # (Manual) Monocytes # (Manual) Basophils # (Manual) Percent Retic PT INR APTT Heparin Anti-Xa Level 0.16 L POC ABG pH POC ABG pCO2 POC ABG pO2 Sodium Potassium Chloride Carbon Dioxide BUN Creatinine Glucose POC Glucose 284 H 186 H Calcium Phosphorus Iron TIBC Lactate Dehydrogenase Total Creatine Kinase NT-Pro-B Natriuret Pep Total Protein Albumin Xbsnz-0-Thhydotur Qxzih-9-Bfpzehrjg Beta Globulins PEP Interpretation Cholesterol LDL Cholesterol Direct Vitamin B12 Urine WBC (Auto) Urine Creatinine Crossmatch 05/01/16 05/01/16 05/02/16 17:24 23:19 04:48 WBC 17.2 H RBC 3.09 L Hgb 8.1 L Hct 25.5 L MCV 83 L MCH 26 L MCHC RDW 17.3 H Plt Count 507 H Lymph % (Auto) 8.0 L [place] % (Auto) 13.6 H Lymph # [place] # 2.3 H Baso # Seg Neutrophils % 77.5 H Seg Neuts % (Manual) Lymphocytes % (Manual) Monocytes % (Manual) Seg Neutrophils # 13.4 H Seg Neutrophils # Man Lymphocytes # (Manual) Monocytes # (Manual) Basophils # (Manual) Percent Retic PT INR APTT Heparin Anti-Xa Level POC ABG pH POC ABG pCO2 POC ABG pO2 Sodium Potassium Chloride Carbon Dioxide BUN Creatinine Glucose POC Glucose 171 H 132 H Calcium Phosphorus Iron TIBC Lactate Dehydrogenase Total Creatine Kinase NT-Pro-B Natriuret Pep Total Protein Albumin Slawt-9-Geiuyfhdx Ejesd-1-Ihqwxdccd Beta Globulins PEP Interpretation Cholesterol LDL Cholesterol Direct Vitamin B12 Urine WBC (Auto) Urine Creatinine Crossmatch 05/02/16 05/02/16 05/02/16 04:48 04:48 05:42 WBC RBC Hgb Hct MCV MCH MCHC RDW Plt Count Lymph % (Auto) [place] % (Auto) Lymph # [place] # Baso # Seg Neutrophils % Seg Neuts % (Manual) Lymphocytes % (Manual) Monocytes % (Manual) Seg Neutrophils # Seg Neutrophils # Man Lymphocytes # (Manual) Monocytes # (Manual) Basophils # (Manual) Percent Retic PT INR APTT Heparin Anti-Xa Level 0.19 L POC ABG pH POC ABG pCO2 POC ABG pO2 Sodium 149 H Potassium Chloride 109.9 H Carbon Dioxide BUN 24 H Creatinine Glucose 224 H POC Glucose 253 H Calcium 8.2 L Phosphorus Iron TIBC Lactate Dehydrogenase Total Creatine Kinase NT-Pro-B Natriuret Pep Total Protein Albumin Kyumh-4-Szpinitvv Goswa-8-Dcbhczjhf Beta Globulins PEP Interpretation Cholesterol LDL Cholesterol Direct Vitamin B12 Urine WBC (Auto) Urine Creatinine Crossmatch 05/02/16 05/02/16 05/02/16 12:01 16:40 23:35 WBC RBC Hgb Hct MCV MCH MCHC RDW Plt Count Lymph % (Auto) [place] % (Auto) Lymph # [place] # Baso # Seg Neutrophils % Seg Neuts % (Manual) Lymphocytes % (Manual) Monocytes % (Manual) Seg Neutrophils # Seg Neutrophils # Man Lymphocytes # (Manual) Monocytes # (Manual) Basophils # (Manual) Percent Retic PT INR APTT Heparin Anti-Xa Level POC ABG pH POC ABG pCO2 POC ABG pO2 Sodium Potassium Chloride Carbon Dioxide BUN Creatinine Glucose POC Glucose 197 H 126 H 303 H Calcium Phosphorus Iron TIBC Lactate Dehydrogenase Total Creatine Kinase NT-Pro-B Natriuret Pep Total Protein Albumin Nkiue-0-Dcvttgkjc Yvtro-5-Qgrwpospy Beta Globulins PEP Interpretation Cholesterol LDL Cholesterol Direct Vitamin B12 Urine WBC (Auto) Urine Creatinine Crossmatch 05/03/16 05/03/16 05/03/16 04:31 04:31 04:31 WBC 19.1 H RBC 3.15 L Hgb 8.6 L Hct 25.7 L MCV 82 L MCH MCHC RDW 17.4 H Plt Count 525 H Lymph % (Auto) [place] % (Auto) Lymph # [place] # Baso # Seg Neutrophils % Seg Neuts % (Manual) Lymphocytes % (Manual) 10.0 L Monocytes % (Manual) 13.0 H Seg Neutrophils # Seg Neutrophils # Man 13.2 H Lymphocytes # (Manual) Monocytes # (Manual) 2.5 H Basophils # (Manual) 0.2 H Percent Retic PT INR APTT Heparin Anti-Xa Level 0.16 L POC ABG pH POC ABG pCO2 POC ABG pO2 Sodium 151 H Potassium Chloride 112.9 H Carbon Dioxide BUN 24 H Creatinine 0.7 L Glucose 303 H POC Glucose Calcium Phosphorus Iron TIBC Lactate Dehydrogenase Total Creatine Kinase NT-Pro-B Natriuret Pep Total Protein Albumin Hodgh-9-Lvtyuyifv Dkvgl-2-Pwttzzubd Beta Globulins PEP Interpretation Cholesterol LDL Cholesterol Direct Vitamin B12 Urine WBC (Auto) Urine Creatinine Crossmatch 05/03/16 05/03/16 05/04/16 12:08 18:05 00:11 WBC RBC Hgb Hct MCV MCH MCHC RDW Plt Count Lymph % (Auto) [place] % (Auto) Lymph # [place] # Baso # Seg Neutrophils % Seg Neuts % (Manual) Lymphocytes % (Manual) Monocytes % (Manual) Seg Neutrophils # Seg Neutrophils # Man Lymphocytes # (Manual) Monocytes # (Manual) Basophils # (Manual) Percent Retic PT INR APTT Heparin Anti-Xa Level POC ABG pH POC ABG pCO2 POC ABG pO2 Sodium Potassium Chloride Carbon Dioxide BUN Creatinine Glucose POC Glucose 452 H 370 H 374 H Calcium Phosphorus Iron TIBC Lactate Dehydrogenase Total Creatine Kinase NT-Pro-B Natriuret Pep Total Protein Albumin Bcojx-9-Nnexrgwml Wxmaz-7-Flnucznco Beta Globulins PEP Interpretation Cholesterol LDL Cholesterol Direct Vitamin B12 Urine WBC (Auto) Urine Creatinine Crossmatch 05/04/16 05/04/16 05/04/16 04:31 04:31 04:31 WBC 19.8 H RBC 2.90 L Hgb 7.8 L Hct 23.8 L MCV 82 L MCH 27 L MCHC RDW 17.9 H Plt Count 504 H Lymph % (Auto) [place] % (Auto) Lymph # [place] # Baso # Seg Neutrophils % Seg Neuts % (Manual) Lymphocytes % (Manual) 11.0 L Monocytes % (Manual) 8.0 H Seg Neutrophils # Seg Neutrophils # Man 13.3 H Lymphocytes # (Manual) Monocytes # (Manual) 1.6 H Basophils # (Manual) Percent Retic PT INR APTT Heparin Anti-Xa Level 0.15 L POC ABG pH POC ABG pCO2 POC ABG pO2 Sodium 146 H Potassium Chloride Carbon Dioxide BUN 30 H Creatinine 0.7 L Glucose 321 H POC Glucose Calcium 8.3 L Phosphorus Iron TIBC Lactate Dehydrogenase Total Creatine Kinase NT-Pro-B Natriuret Pep Total Protein Albumin Qlewh-6-Moyxzqkob Thdmc-1-Vwhltfeuz Beta Globulins PEP Interpretation Cholesterol LDL Cholesterol Direct Vitamin B12 Urine WBC (Auto) Urine Creatinine Crossmatch 05/04/16 05/04/16 05/04/16 10:20 11:57 17:36 WBC RBC Hgb Hct MCV MCH MCHC RDW Plt Count Lymph % (Auto) [place] % (Auto) Lymph # [place] # Baso # Seg Neutrophils % Seg Neuts % (Manual) Lymphocytes % (Manual) Monocytes % (Manual) Seg Neutrophils # Seg Neutrophils # Man Lymphocytes # (Manual) Monocytes # (Manual) Basophils # (Manual) Percent Retic PT INR APTT Heparin Anti-Xa Level POC ABG pH POC ABG pCO2 POC ABG pO2 Sodium Potassium Chloride Carbon Dioxide BUN Creatinine Glucose POC Glucose 303 H 271 H Calcium Phosphorus Iron TIBC Lactate Dehydrogenase Total Creatine Kinase NT-Pro-B Natriuret Pep Total Protein Albumin Jmqno-1-Isoqmfkod Fihzy-3-Qknsircve Beta Globulins PEP Interpretation Cholesterol LDL Cholesterol Direct Vitamin B12 Urine WBC (Auto) > 182.0 H Urine Creatinine Crossmatch 05/04/16 05/05/16 05/05/16 23:53 04:13 04:13 WBC 20.9 H RBC 2.92 L Hgb 7.6 L Hct 23.9 L MCV 82 L MCH 26 L MCHC RDW 17.9 H Plt Count 526 H Lymph % (Auto) [place] % (Auto) Lymph # [place] # Baso # Seg Neutrophils % Seg Neuts % (Manual) 93.0 H Lymphocytes % (Manual) 2.0 L Monocytes % (Manual) Seg Neutrophils # Seg Neutrophils # Man 19.4 H Lymphocytes # (Manual) 0.4 L Monocytes # (Manual) Basophils # (Manual) Percent Retic PT INR APTT Heparin Anti-Xa Level POC ABG pH POC ABG pCO2 POC ABG pO2 Sodium 146 H Potassium Chloride Carbon Dioxide BUN 30 H Creatinine 0.7 L Glucose 250 H POC Glucose 235 H Calcium 8.1 L Phosphorus Iron TIBC Lactate Dehydrogenase Total Creatine Kinase NT-Pro-B Natriuret Pep Total Protein Albumin Mmcqm-3-Aweugptzb Qmowe-6-Wsyifpehu Beta Globulins PEP Interpretation Cholesterol LDL Cholesterol Direct Vitamin B12 Urine WBC (Auto) Urine Creatinine Crossmatch 05/05/16 05/05/16 05/05/16 05:27 07:36 12:06 WBC RBC Hgb Hct MCV MCH MCHC RDW Plt Count Lymph % (Auto) [place] % (Auto) Lymph # [place] # Baso # Seg Neutrophils % Seg Neuts % (Manual) Lymphocytes % (Manual) Monocytes % (Manual) Seg Neutrophils # Seg Neutrophils # Man Lymphocytes # (Manual) Monocytes # (Manual) Basophils # (Manual) Percent Retic PT INR APTT Heparin Anti-Xa Level < 0.10 L POC ABG pH POC ABG pCO2 POC ABG pO2 Sodium Potassium Chloride Carbon Dioxide BUN Creatinine Glucose POC Glucose 287 H 301 H Calcium Phosphorus Iron TIBC Lactate Dehydrogenase Total Creatine Kinase NT-Pro-B Natriuret Pep Total Protein Albumin Bzwno-1-Aootofywh Guieo-8-Vyzlomwrd Beta Globulins PEP Interpretation Cholesterol LDL Cholesterol Direct Vitamin B12 Urine WBC (Auto) Urine Creatinine Crossmatch 05/05/16 05/05/16 05/06/16 15:58 17:30 00:10 WBC RBC Hgb Hct MCV MCH MCHC RDW Plt Count Lymph % (Auto) [place] % (Auto) Lymph # [place] # Baso # Seg Neutrophils % Seg Neuts % (Manual) Lymphocytes % (Manual) Monocytes % (Manual) Seg Neutrophils # Seg Neutrophils # Man Lymphocytes # (Manual) Monocytes # (Manual) Basophils # (Manual) Percent Retic PT INR APTT Heparin Anti-Xa Level 0.17 L POC ABG pH POC ABG pCO2 POC ABG pO2 Sodium Potassium Chloride Carbon Dioxide BUN Creatinine Glucose POC Glucose 226 H 161 H Calcium Phosphorus Iron TIBC Lactate Dehydrogenase Total Creatine Kinase NT-Pro-B Natriuret Pep Total Protein Albumin Hkngq-9-Mcrnuhuwe Gdyke-1-Tadncxumr Beta Globulins PEP Interpretation Cholesterol LDL Cholesterol Direct Vitamin B12 Urine WBC (Auto) Urine Creatinine Crossmatch 05/06/16 05/06/16 05/06/16 04:23 05:30 05:37 WBC RBC Hgb Hct MCV MCH MCHC RDW Plt Count Lymph % (Auto) [place] % (Auto) Lymph # [place] # Baso # Seg Neutrophils % Seg Neuts % (Manual) Lymphocytes % (Manual) Monocytes % (Manual) Seg Neutrophils # Seg Neutrophils # Man Lymphocytes # (Manual) Monocytes # (Manual) Basophils # (Manual) Percent Retic PT INR APTT Heparin Anti-Xa Level 0.15 L POC ABG pH 7.511 H POC ABG pCO2 POC ABG pO2 Sodium Potassium Chloride Carbon Dioxide BUN Creatinine Glucose POC Glucose 168 H Calcium Phosphorus Iron TIBC Lactate Dehydrogenase Total Creatine Kinase NT-Pro-B Natriuret Pep Total Protein Albumin Qxtwm-3-Iyrbkhimg Oeuve-4-Zazjipbqh Beta Globulins PEP Interpretation Cholesterol LDL Cholesterol Direct Vitamin B12 Urine WBC (Auto) Urine Creatinine Crossmatch 05/06/16 05/06/16 05/07/16 12:48 17:22 00:04 WBC RBC Hgb Hct MCV MCH MCHC RDW Plt Count Lymph % (Auto) [place] % (Auto) Lymph # [place] # Baso # Seg Neutrophils % Seg Neuts % (Manual) Lymphocytes % (Manual) Monocytes % (Manual) Seg Neutrophils # Seg Neutrophils # Man Lymphocytes # (Manual) Monocytes # (Manual) Basophils # (Manual) Percent Retic PT INR APTT Heparin Anti-Xa Level POC ABG pH POC ABG pCO2 POC ABG pO2 Sodium Potassium Chloride Carbon Dioxide BUN Creatinine Glucose POC Glucose 206 H 160 H 164 H Calcium Phosphorus Iron TIBC Lactate Dehydrogenase Total Creatine Kinase NT-Pro-B Natriuret Pep Total Protein Albumin Nqjuj-8-Vpmuatmgm Crxff-5-Mhfbzmmph Beta Globulins PEP Interpretation Cholesterol LDL Cholesterol Direct Vitamin B12 Urine WBC (Auto) Urine Creatinine Crossmatch 05/07/16 05/07/16 05/07/16 04:02 05:50 11:30 WBC RBC Hgb Hct MCV MCH MCHC RDW Plt Count Lymph % (Auto) [place] % (Auto) Lymph # [place] # Baso # Seg Neutrophils % Seg Neuts % (Manual) Lymphocytes % (Manual) Monocytes % (Manual) Seg Neutrophils # Seg Neutrophils # Man Lymphocytes # (Manual) Monocytes # (Manual) Basophils # (Manual) Percent Retic PT INR APTT Heparin Anti-Xa Level 0.15 L POC ABG pH POC ABG pCO2 POC ABG pO2 Sodium Potassium Chloride Carbon Dioxide BUN Creatinine Glucose POC Glucose 177 H 240 H Calcium Phosphorus Iron TIBC Lactate Dehydrogenase Total Creatine Kinase NT-Pro-B Natriuret Pep Total Protein Albumin Reaum-7-Ylorvxshu Yqzwg-5-Xrkyjzpfe Beta Globulins PEP Interpretation Cholesterol LDL Cholesterol Direct Vitamin B12 Urine WBC (Auto) Urine Creatinine Crossmatch 05/07/16 05/07/16 05/07/16 12:46 17:57 23:54 WBC 20.8 H RBC 2.86 L Hgb 7.6 L Hct 23.3 L MCV 81 L MCH 26 L MCHC RDW 17.9 H Plt Count 559 H Lymph % (Auto) [place] % (Auto) Lymph # [place] # Baso # Seg Neutrophils % Seg Neuts % (Manual) Lymphocytes % (Manual) Monocytes % (Manual) Seg Neutrophils # Seg Neutrophils # Man Lymphocytes # (Manual) Monocytes # (Manual) Basophils # (Manual) Percent Retic PT INR APTT Heparin Anti-Xa Level POC ABG pH POC ABG pCO2 POC ABG pO2 Sodium Potassium Chloride Carbon Dioxide BUN Creatinine Glucose POC Glucose 279 H 201 H Calcium Phosphorus Iron TIBC Lactate Dehydrogenase Total Creatine Kinase NT-Pro-B Natriuret Pep Total Protein Albumin Knmnz-1-Szqawicyk Ehywq-8-Ywwoojuan Beta Globulins PEP Interpretation Cholesterol LDL Cholesterol Direct Vitamin B12 Urine WBC (Auto) Urine Creatinine Crossmatch 05/08/16 05/08/16 05/08/16 04:04 05:39 12:09 WBC RBC Hgb Hct MCV MCH MCHC RDW Plt Count Lymph % (Auto) [place] % (Auto) Lymph # [place] # Baso # Seg Neutrophils % Seg Neuts % (Manual) Lymphocytes % (Manual) Monocytes % (Manual) Seg Neutrophils # Seg Neutrophils # Man Lymphocytes # (Manual) Monocytes # (Manual) Basophils # (Manual) Percent Retic PT INR APTT Heparin Anti-Xa Level 0.20 L POC ABG pH POC ABG pCO2 POC ABG pO2 Sodium Potassium Chloride Carbon Dioxide BUN Creatinine Glucose POC Glucose 153 H 188 H Calcium Phosphorus Iron TIBC Lactate Dehydrogenase Total Creatine Kinase NT-Pro-B Natriuret Pep Total Protein Albumin Actbe-8-Ewinwlfvn Oddsp-7-Ywukiozbl Beta Globulins PEP Interpretation Cholesterol LDL Cholesterol Direct Vitamin B12 Urine WBC (Auto) Urine Creatinine Crossmatch 05/08/16 05/08/16 05/08/16 17:44 17:49 18:51 WBC RBC Hgb Hct MCV MCH MCHC RDW Plt Count Lymph % (Auto) [place] % (Auto) Lymph # [place] # Baso # Seg Neutrophils % Seg Neuts % (Manual) Lymphocytes % (Manual) Monocytes % (Manual) Seg Neutrophils # Seg Neutrophils # Man Lymphocytes # (Manual) Monocytes # (Manual) Basophils # (Manual) Percent Retic PT INR APTT Heparin Anti-Xa Level POC ABG pH POC ABG pCO2 POC ABG pO2 Sodium Potassium Chloride Carbon Dioxide BUN Creatinine Glucose POC Glucose 56 L 61 L 135 H Calcium Phosphorus Iron TIBC Lactate Dehydrogenase Total Creatine Kinase NT-Pro-B Natriuret Pep Total Protein Albumin Uyefu-1-Wkucblqif Corsk-0-Qvyyndcir Beta Globulins PEP Interpretation Cholesterol LDL Cholesterol Direct Vitamin B12 Urine WBC (Auto) Urine Creatinine Crossmatch 05/09/16 05/09/16 05/09/16 00:14 04:07 05:18 WBC RBC Hgb Hct MCV MCH MCHC RDW Plt Count Lymph % (Auto) [place] % (Auto) Lymph # [place] # Baso # Seg Neutrophils % Seg Neuts % (Manual) Lymphocytes % (Manual) Monocytes % (Manual) Seg Neutrophils # Seg Neutrophils # Man Lymphocytes # (Manual) Monocytes # (Manual) Basophils # (Manual) Percent Retic PT INR APTT Heparin Anti-Xa Level 0.21 L POC ABG pH POC ABG pCO2 POC ABG pO2 Sodium Potassium Chloride Carbon Dioxide BUN Creatinine Glucose POC Glucose 151 H 215 H Calcium Phosphorus Iron TIBC Lactate Dehydrogenase Total Creatine Kinase NT-Pro-B Natriuret Pep Total Protein Albumin Vxwdt-2-Atduwvhin Ziofa-6-Cmhxapwfc Beta Globulins PEP Interpretation Cholesterol LDL Cholesterol Direct Vitamin B12 Urine WBC (Auto) Urine Creatinine Crossmatch
[2016-05-09] MEDS: LEVEMIR SUB-Q SCH (09:51)
[2016-05-09] MEDS: KEPPRA PO SCH ×2 (09:51→21:52)
[2016-05-09] MEDS: PEPCID PO SCH ×2 (09:52→21:50)
[2016-05-09] MEDS: BABY ASPIRIN PO SCH (09:52)
[2016-05-09] MEDS: CORDARONE PO SCH (09:52)
[2016-05-09] MEDS: NORVASC PO SCH (09:52)
[2016-05-09] MEDS: ZESTRIL PO SCH ×2 (09:53→21:51)
[2016-05-09] MEDS: AMPICILLIN PO SCH ×3 (12:27→21:52)
--- NOTE | 2016-05-09 13:20 | Progress Note ---
Assessment and Plan Assessment and plan: 1. Acute respiratory failure. Continue mechanical ventilation per pulmonary. Tracheostomy on 04/29/16. Continue CPAP trials as per pulmonary; 2. Persistent fever - possible sepsis-agree with starting antibiotic levaquin for enterococcus fecalis 3. Acute CVA -right cerebellum; subacute infarct in the right cerebellar hemisphere with associated edema and mass effect as previously described. Patient also with multiple areas of acute infarct in the left occipital and frontal lobes that are most likely embolic. LIZZIE done- No thrombus but decreased flow- cotn coumadin and heparin as bridge 4. Encephalopathy. EEG normal. Etiology likely secondary to CVA +/- hypertension. supportive care 5. Accelerated hypertension- now BP controlled; cont antihypertensive medications 6. CAD-stable; contn meds 7. . Seizures-continue Keppra. EEG normal. 8. Type 2 diabetes mellitus-. Glycemic control; cotn current insulin regime. 9. History of aortic dissection status post repair. 10. Oropharyngeal dysphagia. Patient failed swallow evaluation. Status post PEG placement on 04/17. Cont PEG feeds 11. DVT prophylaxis-on heparin drip. 12. GI prophylaxis-Pepcid CCT exclusive of all other billable procedures 32 minutes History Interval history: f/u respiratory failure; hypernatremia; acute renal failure Patient seen at the bedside; vented- tach in place; no family present; Hospitalist Physical - Constitutional Vitals: Temp Pulse Resp BP Pulse Ox 99.7 F H 92 H 28 H 122/74 98 05/09/16 04:00 05/09/16 13:00 05/09/16 13:00 05/09/16 13:00 05/09/16 13:00 General appearance: Present: no acute distress, other (tracheostomy) - EENT Eyes: Present: PERRL, EOM intact. Absent: scleral icterus, conjunctival injection ENT: other (trach in place) - Neck Neck: Present: supple - Respiratory Respiratory effort: other (vented) Respiratory: bilateral: diminished, negative: rales, rhonchi, wheezing - Cardiovascular Rhythm: regular Heart Sounds: Present: S1 & S2. Absent: gallop - Extremities Extremities: no ischemia, pulses intact, pulses symmetrical Peripheral Pulses: within normal limits - Abdominal General gastrointestinal: soft, non-tender, non-distended, normal bowel sounds - Integumentary Integumentary: Present: warm - Psychiatric Psychiatric: other (unable to assess fully ) - Neurologic Neurologic: other (eyes open to tactile stimulus- he does not obey commands ) Results - Labs CBC & Chem 7: 05/07/16 12:46 05/05/16 04:13 Labs: Laboratory Last Values WBC 20.8 K/mm3 (4.5-11.0) H 05/07/16 12:46 RBC 2.86 M/mm3 (3.65-5.03) L 05/07/16 12:46 Hgb 7.6 gm/dl (11.8-15.2) L 05/07/16 12:46 Hct 23.3 % (35.5-45.6) L 05/07/16 12:46 MCV 81 fl (84-94) L 05/07/16 12:46 MCH 26 pg (28-32) L 05/07/16 12:46 MCHC 32 % (32-34) 05/07/16 12:46 RDW 17.9 % (13.2-15.2) H 05/07/16 12:46 Plt Count 559 K/mm3 (140-440) H 05/07/16 12:46 Lymph % (Auto) 8.0 % (13.4-35.0) L 05/02/16 04:48 [place] % (Auto) 13.6 % (0.0-7.3) H 05/02/16 04:48 Eos % (Auto) 0.2 % (0.0-4.3) 05/02/16 04:48 Baso % (Auto) 0.7 % (0.0-1.8) 05/02/16 04:48 Lymph # 1.4 K/mm3 (1.2-5.4) 05/02/16 04:48 [place] # 2.3 K/mm3 (0.0-0.8) H 05/02/16 04:48 Eos # 0.0 K/mm3 (0.0-0.4) 05/02/16 04:48 Baso # 0.1 K/mm3 (0.0-0.1) 05/02/16 04:48 Add Manual Diff Complete 05/05/16 04:13 Total Counted 100 05/05/16 04:13 Seg Neutrophils % 77.5 % (40.0-70.0) H 05/02/16 04:48 Seg Neuts % (Manual) 93.0 % (40.0-70.0) H 05/05/16 04:13 Band Neutrophils % 0 % 05/05/16 04:13 Lymphocytes % (Manual) 2.0 % (13.4-35.0) L 05/05/16 04:13 Reactive Lymphs % (Man) 0 % 05/05/16 04:13 Monocytes % (Manual) 4.0 % (0.0-7.3) 05/05/16 04:13 Eosinophils % (Manual) 0 % (0.0-4.3) 05/05/16 04:13 Basophils % (Manual) 0 % (0.0-1.8) 05/05/16 04:13 Metamyelocytes % 0 % 05/05/16 04:13 Myelocytes % 1.0 % 05/05/16 04:13 Promyelocytes % 0 % 05/05/16 04:13 Blast Cells % 0 % 05/05/16 04:13 Nucleated RBC % Not Reportable 05/05/16 04:13 Seg Neutrophils # 13.4 K/mm3 (1.8-7.7) H 05/02/16 04:48 Seg Neutrophils # Man 19.4 K/mm3 (1.8-7.7) H 05/05/16 04:13 Band Neutrophils # 0.0 K/mm3 05/05/16 04:13 Lymphocytes # (Manual) 0.4 K/mm3 (1.2-5.4) L 05/05/16 04:13 Abs React Lymphs (Man) 0.0 K/mm3 05/05/16 04:13 Monocytes # (Manual) 0.8 K/mm3 (0.0-0.8) 05/05/16 04:13 Eosinophils # (Manual) 0.0 K/mm3 (0.0-0.4) 05/05/16 04:13 Basophils # (Manual) 0.0 K/mm3 (0.0-0.1) 05/05/16 04:13 Metamyelocytes # 0.0 K/mm3 05/05/16 04:13 Myelocytes # 0.2 K/mm3 05/05/16 04:13 Promyelocytes # 0.0 K/mm3 05/05/16 04:13 Blast Cells # 0.0 K/mm3 05/05/16 04:13 WBC Morphology Not Reportable 05/05/16 04:13 Hypersegmented Neuts Few 05/05/16 04:13 Hyposegmented Neuts Not Reportable 05/05/16 04:13 Hypogranular Neuts Not Reportable 05/05/16 04:13 Smudge Cells Few 05/05/16 04:13 Toxic Granulation Not Reportable 05/05/16 04:13 Toxic Vacuolation Not Reportable 05/05/16 04:13 Dohle Bodies Not Reportable 05/05/16 04:13 Pelger-Huet Anomaly Not Reportable 05/05/16 04:13 Corina Rods Not Reportable 05/05/16 04:13 Platelet Estimate Appears increased 05/05/16 04:13 Clumped Platelets Not Reportable 05/05/16 04:13 Plt Clumps, EDTA Not Reportable 05/05/16 04:13 Large Platelets Not Reportable 05/05/16 04:13 Giant Platelets Rare 05/05/16 04:13 Platelet Satelliting Not Reportable 05/05/16 04:13 Plt Morphology Comment Not Reportable 05/05/16 04:13 RBC Morphology Not Reportable 05/05/16 04:13 Dimorphic RBCs Not Reportable 05/05/16 04:13 Polychromasia Not Reportable 05/05/16 04:13 Hypochromasia 1+ 05/05/16 04:13 Poikilocytosis Not Reportable 05/05/16 04:13 Anisocytosis 1+ 05/05/16 04:13 Microcytosis Not Reportable 05/05/16 04:13 Macrocytosis Not Reportable 05/05/16 04:13 Spherocytes Not Reportable 05/05/16 04:13 Pappenheimer Bodies Not Reportable 05/05/16 04:13 Sickle Cells Not Reportable 05/05/16 04:13 Target Cells Rare 05/05/16 04:13 Tear Drop Cells Not Reportable 05/05/16 04:13 Ovalocytes Not Reportable 05/05/16 04:13 Helmet Cells Not Reportable 05/05/16 04:13 [place] Bodies Not Reportable 05/05/16 04:13 [place] Rings Not Reportable 05/05/16 04:13 [place] Cells Not Reportable 05/05/16 04:13 Bite Cells Not Reportable 05/05/16 04:13 Crenated Cell Not Reportable 05/05/16 04:13 Elliptocytes Not Reportable 05/05/16 04:13 Acanthocytes (Spur) Not Reportable 05/05/16 04:13 Rouleaux Not Reportable 05/05/16 04:13 Hemoglobin C Crystals Not Reportable 05/05/16 04:13 Schistocytes Not Reportable 05/05/16 04:13 Malaria parasites Not Reportable 05/05/16 04:13 Percent Retic 3.68 % (0.78-2.58) H 04/29/16 10:16 [place] Bodies Not Reportable 05/05/16 04:13 Hem Pathologist Commnt No 05/05/16 04:13 PT 15.9 Sec. (12.2-14.9) H 04/23/16 10:45 INR 1.28 (0.87-1.13) H 04/23/16 10:45 APTT 42.1 Sec. (24.2-36.6) H 04/04/16 09:55 Heparin Anti-Xa Level 0.21 U.I./ml (0.3-0.7) L 05/09/16 04:07 POC ABG pH 7.511 (7.35-7.45) H 05/06/16 05:30 POC ABG pCO2 36.2 (35-45) 05/06/16 05:30 POC ABG pO2 92 (80-105) 05/06/16 05:30 POC ABG HCO3 28.9 05/06/16 05:30 POC ABG Total CO2 30 05/06/16 05:30 POC ABG O2 Sat 98 05/06/16 05:30 POC ABG Base Excess 6 05/06/16 05:30 VBG pH 7.418 (7.320-7.420) 03/24/16 14:00 FiO2 25 % 05/06/16 05:30 Sodium 146 mmol/L (137-145) H 05/05/16 04:13 Potassium 3.7 mmol/L (3.6-5.0) 05/05/16 04:13 Chloride 106.0 mmol/L (98-107) 05/05/16 04:13 Carbon Dioxide 27 mmol/L (22-30) 05/05/16 04:13 Anion Gap 17 mmol/L 05/05/16 04:13 BUN 30 mg/dL (9-20) H 05/05/16 04:13 Creatinine 0.7 mg/dL (0.8-1.5) L 05/05/16 04:13 Estimated GFR > 60 ml/min 05/05/16 04:13 BUN/Creatinine Ratio 42.85 % 05/05/16 04:13 Glucose 250 mg/dL (75-100) H 05/05/16 04:13 POC Glucose 291 (70-105) H 05/09/16 12:27 Hemoglobin A1c 9.6 % (4-6) H 03/24/16 14:00 Lactic Acid 1.6 mmol/L (0.7-2.0) 04/17/16 12:17 Calcium 8.1 mg/dL (8.4-10.2) L 05/05/16 04:13 Phosphorus 2.3 mg/dL (2.5-4.5) L D 03/30/16 04:00 Magnesium 1.9 mg/dL (1.7-2.3) 03/30/16 04:00 Iron 10 ug/dL (49-181) L 04/29/16 10:16 TIBC 138 mcg/dL (250-450) L 04/29/16 10:16 Ferritin 336.4 ng/mL (13.0-400.0) 04/29/16 10:16 Total Bilirubin < 0.2 mg/dL (0.1-1.2) 04/27/16 04:21 AST 18 units/L (5-40) 04/27/16 04:21 ALT 39 units/L (7-56) 04/27/16 04:21 Alkaline Phosphatase 103 units/L (35-129) 04/27/16 04:21 Lactate Dehydrogenase 204 units/L (91-180) H 04/29/16 10:16 Total Creatine Kinase 356 units/L (55-170) H 03/28/16 13:29 Troponin T < 0.010 ng/mL (0.00-0.029) 03/28/16 13:29 NT-Pro-B Natriuret Pep 897.9 pg/mL (0-900) 04/03/16 04:10 Serum Total Protein 7.1 g/dL (6.1-8.1) 03/25/16 13:00 Total Protein 6.0 g/dL (6.3-8.2) L 04/27/16 04:21 Albumin 2.0 g/dL (3.9-5) L 04/27/16 04:21 Albumin/Globulin Ratio 0.5 % 04/27/16 04:21 Ujatw-4-Rsawevtlt See scanned report 03/31/16 12:20 Vkfim-5-Gwjoefwpo See scanned report 03/31/16 12:20 Beta Globulins See scanned report 03/31/16 12:20 Xqos-1-Abqkcdhfslhxb 2.46 mg/L (<=2.51) 03/25/16 13:00 Gamma Globulins See scanned report 03/31/16 12:20 Abnorm Protein Band 1 see below (()) 03/25/16 13:00 PEP Interpretation See scanned report 03/31/16 12:20 Triglycerides 88 mg/dL (2-149) 03/24/16 17:58 Cholesterol 221 mg/dL (50-199) H 03/24/16 17:58 LDL Cholesterol Direct 146 mg/dL (50-130) H 03/24/16 17:58 HDL Cholesterol 58 mg/dL (40-59) 03/24/16 17:58 Cholesterol/HDL Ratio 3.81 % 03/24/16 17:58 Vitamin B12 1005 pg/mL (211-911) H 04/29/16 10:16 Folate 12.78 ng/mL (7.3-26.0) 04/29/16 10:16 Urine Color Yellow (Yellow) 05/04/16 10:20 Urine Turbidity Cloudy (Clear) 05/04/16 10:20 Urine pH 5.0 (5.0-7.0) 05/04/16 10:20 Ur Specific [place] 1.017 (1.003-1.030) 05/04/16 10:20 Urine Protein 100 mg/dl mg/dL (Negative) 05/04/16 10:20 Urine Glucose (UA) >=500 mg/dL (Negative) 05/04/16 10:20 Urine Ketones Neg mg/dL (Negative) 05/04/16 10:20 Urine Blood Sm (Negative) 05/04/16 10:20 Urine Nitrite Neg (Negative) 05/04/16 10:20 Urine Bilirubin Neg (Negative) 05/04/16 10:20 Urine Urobilinogen 2.0 mg/dL (<2.0) 05/04/16 10:20 Ur Leukocyte Esterase Lg (Negative) 05/04/16 10:20 Urine WBC (Auto) > 182.0 /HPF (0.0-6.0) H 05/04/16 10:20 Urine RBC (Auto) 13.0 /HPF (0.0-6.0) 05/04/16 10:20 U Epithel Cells (Auto) < 1.0 /HPF (0-13.0) 05/04/16 10:20 Urine Bacteria (Auto) 1+ /HPF (Negative) 05/04/16 10:20 Urine WBC Clumps 3+ /HPF 05/04/16 10:20 Hyaline Casts 1 /LPF 03/24/16 14:27 Urine Mucus Few /HPF 05/04/16 10:20 Urine Yeast (Budding) 1+ /HPF 05/04/16 10:20 Ur Random Creatinine See scanned report 03/31/16 12:20 U Random Total Protein See scanned report 03/31/16 12:20 Urine Creatinine 85.5 mg/dL (0.1-20.0) H 04/20/16 11:50 Protein/Creatinin Ratio See scanned report 03/31/16 12:20 Urine Sodium 17 mEq/L 04/20/16 11:50 U Abnormal Prot Band 1 See scanned report 03/31/16 12:20 U Abnormal Prot Band 2 See scanned report 03/31/16 12:20 U Abnormal Prot Band 3 See scanned report 03/31/16 12:20 Ketones 1.0 mg/dL (0.2-2.8) 03/24/16 14:00 Blood Type A POSITIVE 04/29/16 10:05 Antibody Screen Negative 04/29/16 10:05 Crossmatch See Detail 04/29/16 10:05 Microbiology 05/06/16 12:43 Peripheral/Venous Blood Culture - Preliminary NO GROWTH AFTER 72 HOURS 05/04/16 09:36 Peripheral/Venous Blood Culture - Final NO GROWTH AFTER 5 DAYS 05/04/16 09:38 Central Venous Line Blood Culture - Final NO GROWTH AFTER 5 DAYS 05/04/16 10:20 Urine,Catheterized - Indwelling Catheter Urine Culture - Final Enterococcus Faecalis Thelma Albicans 05/06/16 13:10 Central Venous Line Blood Culture - Preliminary NO GROWTH AFTER 48 HOURS 04/16/16 18:30 Tracheal Aspirate Sputum Culture - Final Pseudomonas Aeruginosa 03/24/16 14:00 Peripheral/Venous Blood Culture - Final NO GROWTH AFTER 5 DAYS 03/24/16 14:13 Peripheral/Venous Blood Culture - Final NO GROWTH AFTER 5 DAYS 03/27/16 Unknown Tracheal Aspirate Sputum Culture - Final 03/26/16 18:00 Tracheal Aspirate Sputum Culture - Final 03/24/16 14:27 Urine,Catheterized - Indwelling Catheter Urine Culture - Final Beta Hemolytic Strep Group B
[2016-05-09 17:39] LABS: Hematocrit 20.2 % (35.5-45.6); Hemoglobin 6.4 gm/dl (11.8-15.2)
[2016-05-09] MEDS ORDERED: NACL 0.9% 500 ML 500 ML IV SCH (18:44)
--- NOTE | 2016-05-09 18:46 | Event Note ---
Date: 05/09/16 patient was bleeding from trach site- sx was informed and instructed application of compression dressing; d/c heparin; Hb 6.4- will transfuse 2 units PRBC
[2016-05-10] MEDS: NOVOLOG SUB-Q SCH ×5 (00:04→23:12)
[2016-05-10] MEDS: DUONEB 0.5 MG-3 MG/3 ML SOLN IH SCH ×4 (02:23→19:08)
[2016-05-10] MEDS: AMPICILLIN PO SCH ×2 (03:05→19:37)
[2016-05-10 04:59] LABS: Hematocrit 26.7 % (35.5-45.6); Hemoglobin 8.6 gm/dl (11.8-15.2); Mean Corpuscular HGB Conc 32 % (32-34); Mean Corpuscular Hemoglobin 27 pg (28-32); Mean Corpuscular Volume 83 fl (84-94); Platelet Count 488 K/mm3 (140-440); Red Cell Distribution Width 17.5 % (13.2-15.2); White Blood Count 16.9 K/mm3 (4.5-11.0)
[2016-05-10 06:09] LABS: Basophils % (Manual) 0 % (0.0-1.8); Blastocytes % (Manual) 0 %; Eosinophils % (Manual) 0 % (0.0-4.3)
[2016-05-10 06:10] LABS: Anisocytosis 1+; Diff Status Complete; Hypochromasia Rare; Platelet Estimate Consistent w Auto; Polychromasia Rare
[2016-05-10] MEDS: NORVASC PO SCH (09:25)
[2016-05-10] MEDS: KEPPRA PO SCH ×2 (09:25→21:46)
[2016-05-10] MEDS: PEPCID PO SCH ×2 (09:25→21:46)
[2016-05-10] MEDS: NORMODYNE PO SCH ×3 (09:25→21:45)
[2016-05-10] MEDS: CORDARONE PO SCH (09:26)
[2016-05-10] MEDS: ZESTRIL PO SCH ×2 (09:26→21:45)
[2016-05-10] MEDS: LEVEMIR SUB-Q SCH (09:26)
--- NOTE | 2016-05-10 10:08 | Event Note ---
Date: 05/10/16 Patient seen this morning about 0800 for trach site bleeding HR 80s and BP 135/88 Trach site dressing in place without active bleeding noted will re-assess later today continue to hold anticoagulation f/u labs ordered
--- NOTE | 2016-05-10 11:32 | Progress Note ---
Assessment and Plan Imp: 1. Acute CVA 2. Acute respiratory failure, hypoxia 3. S/p Trach 4. UTI 5. Sepsis 6. R/o Neck cellulitis per CT neck findings Rec: 1. Minimize sedation 2. Hold heparin 3. Surgery f/u re: trach 4. Broaden ABX to Zosyn to cover UTI and any possible soft tissue infection 5. Hold PSV today 6. SCDs ordered 7. TFs 8. Placement when able to secure benefits No family present CCT 31 minutes Subjective Date of service: 05/10/16 Principal diagnosis: CVA, acute respiratory failure Interval history: + Bleeding around trach this AM, off heparin drip. Area bandaged. He is on ventilator, poorly responsive, critically ill. Active Medications Acetaminophen (Tylenol) 650 mg PO Q4H PRN PRN Reason: Pain MILD(1-3)/Fever >100.5/DUVAL Last Admin: 05/08/16 19:44 Dose: 650 mg Albuterol/Ipratropium (Duoneb 0.5 Mg-3 Mg/3 Ml Soln) 1 ampul IH Q6HRT [facility] Last Admin: 05/10/16 19:08 Dose: 1 ampul Amiodarone HCl (Cordarone) 200 mg PO DAILY [facility] Last Admin: 05/10/16 09:26 Dose: 200 mg Amlodipine Besylate (Norvasc) 10 mg PO DAILY [facility] Last Admin: 05/10/16 09:25 Dose: 10 mg Lipase/Protease/Amylase (Pancreaze Dr 10,500 Unit) 1 each FEEDTUBE PRN PRN PRN Reason: For Clogged Feeding Tube Atorvastatin Calcium (Lipitor) 10 mg PO QHS [facility] Last Admin: 05/09/16 21:51 Dose: 10 mg Bisacodyl (Dulcolax) 10 mg VA QDAY PRN PRN Reason: Constipation unrelieved by MOM Dextrose (D50w (25gm)) 50 ml IV PRN PRN PRN Reason: Hypoglycemia Last Admin: 04/22/16 05:48 Dose: 50 ml Famotidine (Pepcid) 20 mg PO BID [facility] Last Admin: 05/10/16 09:25 Dose: 20 mg Hydralazine HCl (Apresoline) 20 mg IV Q6H PRN PRN Reason: PRN SBP > 150 Last Admin: 12/23/16 00:38 Dose: 20 mg Hydrophilic Ointment (Vaseline Lip Therapy) 1 applic TP Q2HR PRN PRN Reason: Dry Lips Piperacillin Sod/Tazobactam Sod (Zosyn/Ns 4.5gm/100ml) 100 mls @ 200 mls/hr IV Q6HR [facility] Last Admin: 05/10/16 18:30 Dose: 200 mls/hr Insulin Aspart (Novolog) 0 units SUB-Q Q6HR ANA LUISA PRN Reason: Protocol Last Admin: 05/10/16 17:55 Dose: 2 units Insulin Detemir (Levemir) 40 units SUB-Q DAILY [facility] Last Admin: 05/10/16 09:26 Dose: 40 units Labetalol HCl (Normodyne) 400 mg PO TID [facility] Last Admin: 05/10/16 14:34 Dose: 400 mg Levetiracetam (Keppra) 500 mg PO BID [facility] Last Admin: 05/10/16 09:25 Dose: 500 mg Lisinopril (Zestril) 40 mg PO BID [facility] Last Admin: 05/10/16 09:26 Dose: 40 mg Magnesium Hydroxide (Milk Of Magnesia) 30 ml PO Q4H PRN PRN Reason: Constipation Last Admin: 04/25/16 06:21 Dose: 30 ml Metoclopramide HCl (Reglan) 5 mg IV Q6H PRN PRN Reason: TUBE FEED RESIDUAL Last Admin: 04/25/16 06:21 Dose: 5 mg Multi-Ingred Cream/Lotion/Oil/Oint (Artificial Tears Ophth Oint) 1 applic OU Q4HR PRN PRN Reason: Dry Eye(s) Ondansetron HCl (Zofran) 4 mg IV Q8H PRN PRN Reason: N/V unrelieved by Reglan Last Admin: 04/20/16 21:53 Dose: 4 mg Simple Syrup (Simple Syrup) 15 ml FEEDTUBE PRN PRN PRN Reason: Hypoglycemia Last Admin: 05/08/16 17:53 Dose: 15 ml Simple Syrup (Simple Syrup) 30 ml FEEDTUBE PRN PRN PRN Reason: Hypoglycemia Sodium Bicarbonate (Sodium Bicarbonate) 325 mg FEEDTUBE PRN PRN PRN Reason: For Clogged Feeding Tube Sodium Chloride (Nacl 0.9% 500 Ml) 1 ml IV DIRECT [facility] Warfarin Sodium (Coumadin Pharmacy To Dose) 1 each PO PKCONSULT ANA LUISA PRN Reason: Protocol Objective Vital Signs - 12hr 05/09/16 05/09/16 05/10/16 23:45 23:49 00:00 Temperature 99.7 F H Pulse Rate 78 77 Pulse Rate [ Anterior Bilateral Throughout] Pulse Rate [ 79 Apical] Pulse Rate [ Bilateral] Pulse Rate [ 79 From Monitor] Respiratory 22 Rate Respiratory Rate [Anterior Bilateral Throughout] Respiratory Rate [Bilateral ] Blood Pressure 101/63 112/66 O2 Sat by Pulse 100 100 Oximetry O2 Sat by Pulse 100 Oximetry [ Assessment] 05/10/16 05/10/16 05/10/16 01:00 01:44 02:00 Temperature Pulse Rate 78 78 78 Pulse Rate [ Anterior Bilateral Throughout] Pulse Rate [ Apical] Pulse Rate [ Bilateral] Pulse Rate [ From Monitor] Respiratory 21 19 17 Rate Respiratory Rate [Anterior Bilateral Throughout] Respiratory Rate [Bilateral ] Blood Pressure 118/69 118/69 125/75 O2 Sat by Pulse 100 100 Oximetry O2 Sat by Pulse Oximetry [ Assessment] 05/10/16 05/10/16 05/10/16 02:23 02:38 02:46 Temperature Pulse Rate 79 Pulse Rate [ Anterior Bilateral Throughout] Pulse Rate [ Apical] Pulse Rate [ 78 80 Bilateral] Pulse Rate [ From Monitor] Respiratory 15 Rate Respiratory Rate [Anterior Bilateral Throughout] Respiratory 18 18 Rate [Bilateral ] Blood Pressure 125/75 O2 Sat by Pulse 100 Oximetry O2 Sat by Pulse Oximetry [ Assessment] 05/10/16 05/10/16 05/10/16 03:00 03:22 04:00 Temperature 98.7 F Pulse Rate 79 79 81 Pulse Rate [ Anterior Bilateral Throughout] Pulse Rate [ Apical] Pulse Rate [ Bilateral] Pulse Rate [ From Monitor] Respiratory 19 19 19 Rate Respiratory Rate [Anterior Bilateral Throughout] Respiratory Rate [Bilateral ] Blood Pressure 119/71 119/71 132/78 O2 Sat by Pulse 100 100 Oximetry O2 Sat by Pulse Oximetry [ Assessment] 05/10/16 05/10/16 05/10/16 04:05 04:22 05:00 Temperature Pulse Rate 80 81 88 Pulse Rate [ Anterior Bilateral Throughout] Pulse Rate [ Apical] Pulse Rate [ Bilateral] Pulse Rate [ From Monitor] Respiratory 21 22 Rate Respiratory Rate [Anterior Bilateral Throughout] Respiratory Rate [Bilateral ] Blood Pressure 132/78 119/71 141/81 O2 Sat by Pulse 100 100 Oximetry O2 Sat by Pulse Oximetry [ Assessment] 05/10/16 05/10/16 05/10/16 06:00 06:02 07:00 Temperature Pulse Rate 84 89 84 Pulse Rate [ Anterior Bilateral Throughout] Pulse Rate [ Apical] Pulse Rate [ Bilateral] Pulse Rate [ From Monitor] Respiratory 20 26 H 20 Rate Respiratory Rate [Anterior Bilateral Throughout] Respiratory Rate [Bilateral ] Blood Pressure 129/78 129/78 136/81 O2 Sat by Pulse 100 100 Oximetry O2 Sat by Pulse Oximetry [ Assessment] 05/10/16 05/10/16 05/10/16 07:44 08:00 09:00 Temperature 98.8 F Pulse Rate 86 89 Pulse Rate [ Anterior Bilateral Throughout] Pulse Rate [ 80 Apical] Pulse Rate [ Bilateral] Pulse Rate [ 80 From Monitor] Respiratory 22 20 Rate Respiratory Rate [Anterior Bilateral Throughout] Respiratory Rate [Bilateral ] Blood Pressure 135/83 144/85 O2 Sat by Pulse 100 Oximetry O2 Sat by Pulse Oximetry [ Assessment] 05/10/16 05/10/16 05/10/16 09:25 09:26 09:28 Temperature Pulse Rate 88 88 88 Pulse Rate [ Anterior Bilateral Throughout] Pulse Rate [ Apical] Pulse Rate [ Bilateral] Pulse Rate [ From Monitor] Respiratory 20 Rate Respiratory Rate [Anterior Bilateral Throughout] Respiratory Rate [Bilateral ] Blood Pressure 144/85 144/85 119/71 O2 Sat by Pulse 100 Oximetry O2 Sat by Pulse Oximetry [ Assessment] 05/10/16 05/10/16 05/10/16 10:00 10:10 10:15 Temperature Pulse Rate 78 Pulse Rate [ 77 Anterior Bilateral Throughout] Pulse Rate [ Apical] Pulse Rate [ Bilateral] Pulse Rate [ From Monitor] Respiratory 19 27 H Rate Respiratory 12 Rate [Anterior Bilateral Throughout] Respiratory Rate [Bilateral ] Blood Pressure 123/75 O2 Sat by Pulse Oximetry O2 Sat by Pulse Oximetry [ Assessment] 05/10/16 05/10/16 10:20 10:24 Temperature Pulse Rate 79 Pulse Rate [ 77 Anterior Bilateral Throughout] Pulse Rate [ Apical] Pulse Rate [ 77 Bilateral] Pulse Rate [ From Monitor] Respiratory Rate Respiratory 12 Rate [Anterior Bilateral Throughout] Respiratory 12 Rate [Bilateral ] Blood Pressure 123/75 O2 Sat by Pulse 99 Oximetry O2 Sat by Pulse Oximetry [ Assessment] Constitutional: no acute distress, comatose Eyes: non-icteric ENT: other (tracheotomy) Neck: other (swelling/large bandage in place) Effort: normal Ascultation: Bilateral: clear Percussion: Bilateral: not dull Cardiovascular: regular rate and rhythm (no mrg) Gastrointestinal: normoactive bowel sounds, soft, non-tender Extremities: no cyanosis, no edema Neurologic: other (GCS 4 on vent) Psychiatric: other (unable to assess) CBC and BMP: 05/10/16 12:54 05/05/16 04:13 ABG, PT/INR, D-dimer: ABG POC ABG pH 7.511 (7.35-7.45) H 05/06/16 05:30 POC ABG pCO2 36.2 (35-45) 05/06/16 05:30 POC ABG pO2 92 (80-105) 05/06/16 05:30 POC ABG HCO3 28.9 05/06/16 05:30 POC ABG Total CO2 30 05/06/16 05:30 POC ABG O2 Sat 98 05/06/16 05:30 PT/INR, D-dimer PT 15.9 Sec. (12.2-14.9) H 04/23/16 10:45 INR 1.28 (0.87-1.13) H 04/23/16 10:45 Abnormal lab findings: Abnormal Labs 03/24/16 03/24/16 03/24/16 17:58 20:25 23:23 WBC RBC Hgb Hct MCV MCH MCHC RDW Plt Count Lymph % (Auto) [place] % (Auto) Lymph # [place] # Baso # Seg Neutrophils % Seg Neuts % (Manual) Lymphocytes % (Manual) Monocytes % (Manual) Seg Neutrophils # Seg Neutrophils # Man Lymphocytes # (Manual) Monocytes # (Manual) Basophils # (Manual) Percent Retic PT INR APTT Heparin Anti-Xa Level POC ABG pH POC ABG pCO2 POC ABG pO2 Sodium 169 H* Potassium 3.5 L Chloride 130.3 H Carbon Dioxide BUN 28 H Creatinine 1.8 H Glucose POC Glucose 112 H Calcium Phosphorus Iron TIBC Lactate Dehydrogenase Total Creatine Kinase NT-Pro-B Natriuret Pep Total Protein Albumin Wnykx-2-Kvldhhmrp Wqbay-9-Msdcrxxnd Beta Globulins PEP Interpretation Cholesterol 221 H LDL Cholesterol Direct 146 H Vitamin B12 Urine WBC (Auto) Urine Creatinine Crossmatch 03/25/16 03/25/16 03/25/16 05:56 05:56 05:56 WBC 21.3 H RBC 6.32 H Hgb 16.7 H Hct 52.7 H MCV 83 L MCH 27 L MCHC RDW Plt Count Lymph % (Auto) [place] % (Auto) Lymph # [place] # Baso # Seg Neutrophils % Seg Neuts % (Manual) 91.0 H Lymphocytes % (Manual) 4.0 L Monocytes % (Manual) Seg Neutrophils # Seg Neutrophils # Man 19.4 H Lymphocytes # (Manual) 0.9 L Monocytes # (Manual) 0.9 H Basophils # (Manual) Percent Retic PT INR APTT Heparin Anti-Xa Level POC ABG pH POC ABG pCO2 POC ABG pO2 Sodium 172 H* Potassium 3.5 L Chloride 130.4 H Carbon Dioxide BUN 29 H Creatinine 1.8 H Glucose 187 H POC Glucose Calcium Phosphorus Iron TIBC Lactate Dehydrogenase 460 H Total Creatine Kinase NT-Pro-B Natriuret Pep Total Protein Albumin Oqfyo-6-Crhbgxcie Pmweb-4-Glznctkrn Beta Globulins PEP Interpretation Cholesterol LDL Cholesterol Direct Vitamin B12 Urine WBC (Auto) Urine Creatinine Crossmatch 03/25/16 03/25/16 03/25/16 07:55 12:19 13:00 WBC RBC Hgb Hct MCV MCH MCHC RDW Plt Count Lymph % (Auto) [place] % (Auto) Lymph # [place] # Baso # Seg Neutrophils % Seg Neuts % (Manual) Lymphocytes % (Manual) Monocytes % (Manual) Seg Neutrophils # Seg Neutrophils # Man Lymphocytes # (Manual) Monocytes # (Manual) Basophils # (Manual) Percent Retic PT INR APTT Heparin Anti-Xa Level POC ABG pH POC ABG pCO2 POC ABG pO2 Sodium Potassium Chloride Carbon Dioxide BUN Creatinine Glucose POC Glucose 231 H 314 H Calcium Phosphorus Iron TIBC Lactate Dehydrogenase Total Creatine Kinase NT-Pro-B Natriuret Pep Total Protein Albumin 3.4 L Etgse-1-Nibgvnkgz 0.4 H Gorep-5-Rjzqtkyvn 1.1 H Beta Globulins 0.6 H PEP Interpretation see below H Cholesterol LDL Cholesterol Direct Vitamin B12 Urine WBC (Auto) Urine Creatinine Crossmatch 03/25/16 03/25/16 03/26/16 16:41 22:45 08:32 WBC RBC Hgb Hct MCV MCH MCHC RDW Plt Count Lymph % (Auto) [place] % (Auto) Lymph # [place] # Baso # Seg Neutrophils % Seg Neuts % (Manual) Lymphocytes % (Manual) Monocytes % (Manual) Seg Neutrophils # Seg Neutrophils # Man Lymphocytes # (Manual) Monocytes # (Manual) Basophils # (Manual) Percent Retic PT INR APTT Heparin Anti-Xa Level POC ABG pH POC ABG pCO2 POC ABG pO2 Sodium Potassium Chloride Carbon Dioxide BUN Creatinine Glucose POC Glucose 444 H 326 H 360 H Calcium Phosphorus Iron TIBC Lactate Dehydrogenase Total Creatine Kinase NT-Pro-B Natriuret Pep Total Protein Albumin Gycrc-0-Mlwtuduat Tnocx-5-Koshqgcka Beta Globulins PEP Interpretation Cholesterol LDL Cholesterol Direct Vitamin B12 Urine WBC (Auto) Urine Creatinine Crossmatch 03/26/16 03/26/16 03/26/16 12:38 15:33 15:47 WBC RBC Hgb Hct MCV MCH MCHC RDW Plt Count Lymph % (Auto) [place] % (Auto) Lymph # [place] # Baso # Seg Neutrophils % Seg Neuts % (Manual) Lymphocytes % (Manual) Monocytes % (Manual) Seg Neutrophils # Seg Neutrophils # Man Lymphocytes # (Manual) Monocytes # (Manual) Basophils # (Manual) Percent Retic PT INR APTT Heparin Anti-Xa Level POC ABG pH 7.511 H POC ABG pCO2 26.5 L POC ABG pO2 70 L Sodium Potassium Chloride Carbon Dioxide BUN Creatinine Glucose POC Glucose 280 H 174 H Calcium Phosphorus Iron TIBC Lactate Dehydrogenase Total Creatine Kinase NT-Pro-B Natriuret Pep Total Protein Albumin Seoki-6-Wxeybrywq Eqqzx-4-Mfshzxcty Beta Globulins PEP Interpretation Cholesterol LDL Cholesterol Direct Vitamin B12 Urine WBC (Auto) Urine Creatinine Crossmatch 03/26/16 03/26/16 03/26/16 16:47 16:47 18:51 WBC 14.0 H RBC 5.17 H Hgb Hct MCV MCH 26 L MCHC 31 L RDW Plt Count 139 L Lymph % (Auto) [place] % (Auto) Lymph # [place] # Baso # Seg Neutrophils % Seg Neuts % (Manual) Lymphocytes % (Manual) Monocytes % (Manual) Seg Neutrophils # Seg Neutrophils # Man Lymphocytes # (Manual) Monocytes # (Manual) Basophils # (Manual) Percent Retic PT INR APTT Heparin Anti-Xa Level POC ABG pH POC ABG pCO2 33.9 L POC ABG pO2 150 H Sodium 164 H* Potassium 3.4 L Chloride 128.5 H Carbon Dioxide BUN 30 H Creatinine 2.2 H Glucose 121 H POC Glucose Calcium 8.1 L Phosphorus Iron TIBC Lactate Dehydrogenase Total Creatine Kinase NT-Pro-B Natriuret Pep Total Protein Albumin Knvfh-8-Etaullfne Sjmha-9-Mqfbnosmx Beta Globulins PEP Interpretation Cholesterol LDL Cholesterol Direct Vitamin B12 Urine WBC (Auto) Urine Creatinine Crossmatch 03/27/16 03/27/16 03/27/16 02:19 05:47 06:02 WBC RBC Hgb Hct MCV MCH MCHC RDW Plt Count Lymph % (Auto) [place] % (Auto) Lymph # [place] # Baso # Seg Neutrophils % Seg Neuts % (Manual) Lymphocytes % (Manual) Monocytes % (Manual) Seg Neutrophils # Seg Neutrophils # Man Lymphocytes # (Manual) Monocytes # (Manual) Basophils # (Manual) Percent Retic PT INR APTT Heparin Anti-Xa Level POC ABG pH POC ABG pCO2 27.3 L 30.3 L POC ABG pO2 50 L 112 H Sodium 158 H Potassium Chloride 126.7 H Carbon Dioxide 20 L BUN 25 H Creatinine 1.7 H Glucose POC Glucose Calcium 7.0 L Phosphorus Iron TIBC Lactate Dehydrogenase Total Creatine Kinase NT-Pro-B Natriuret Pep Total Protein Albumin Hrces-5-Wzwqybtwt Icczz-9-Xsukvpdsd Beta Globulins PEP Interpretation Cholesterol LDL Cholesterol Direct Vitamin B12 Urine WBC (Auto) Urine Creatinine Crossmatch 03/27/16 03/27/16 03/27/16 07:51 09:20 11:45 WBC 14.2 H RBC Hgb Hct MCV 83 L MCH 27 L MCHC RDW Plt Count 113 L Lymph % (Auto) [place] % (Auto) Lymph # [place] # Baso # Seg Neutrophils % Seg Neuts % (Manual) Lymphocytes % (Manual) Monocytes % (Manual) Seg Neutrophils # Seg Neutrophils # Man Lymphocytes # (Manual) Monocytes # (Manual) Basophils # (Manual) Percent Retic PT INR APTT Heparin Anti-Xa Level POC ABG pH POC ABG pCO2 POC ABG pO2 Sodium Potassium Chloride Carbon Dioxide BUN Creatinine Glucose POC Glucose 124 H 241 H Calcium Phosphorus Iron TIBC Lactate Dehydrogenase Total Creatine Kinase NT-Pro-B Natriuret Pep Total Protein Albumin Uhxmh-2-Zvzgpuvql Npjxc-2-Xdscaedky Beta Globulins PEP Interpretation Cholesterol LDL Cholesterol Direct Vitamin B12 Urine WBC (Auto) Urine Creatinine Crossmatch 03/27/16 03/27/16 03/28/16 16:39 22:03 03:29 WBC RBC Hgb Hct MCV MCH MCHC RDW Plt Count Lymph % (Auto) [place] % (Auto) Lymph # [place] # Baso # Seg Neutrophils % Seg Neuts % (Manual) Lymphocytes % (Manual) Monocytes % (Manual) Seg Neutrophils # Seg Neutrophils # Man Lymphocytes # (Manual) Monocytes # (Manual) Basophils # (Manual) Percent Retic PT INR APTT Heparin Anti-Xa Level POC ABG pH POC ABG pCO2 POC ABG pO2 Sodium Potassium Chloride Carbon Dioxide BUN Creatinine Glucose POC Glucose 266 H 167 H 241 H Calcium Phosphorus Iron TIBC Lactate Dehydrogenase Total Creatine Kinase NT-Pro-B Natriuret Pep Total Protein Albumin Shpib-6-Sidageylb Ewiyl-6-Eltfzqyuv Beta Globulins PEP Interpretation Cholesterol LDL Cholesterol Direct Vitamin B12 Urine WBC (Auto) Urine Creatinine Crossmatch 03/28/16 03/28/16 03/28/16 05:00 05:00 05:00 WBC RBC Hgb Hct MCV 83 L MCH 27 L MCHC RDW Plt Count 106 L Lymph % (Auto) [place] % (Auto) 10.1 H Lymph # [place] # 1.0 H Baso # Seg Neutrophils % 75.1 H Seg Neuts % (Manual) Lymphocytes % (Manual) Monocytes % (Manual) Seg Neutrophils # Seg Neutrophils # Man Lymphocytes # (Manual) Monocytes # (Manual) Basophils # (Manual) Percent Retic PT INR APTT Heparin Anti-Xa Level POC ABG pH POC ABG pCO2 POC ABG pO2 Sodium 147 H D Potassium 3.1 L D Chloride 112.3 H Carbon Dioxide 21 L BUN Creatinine Glucose 208 H POC Glucose Calcium 7.0 L Phosphorus 2.2 L Iron TIBC Lactate Dehydrogenase Total Creatine Kinase NT-Pro-B Natriuret Pep Total Protein Albumin Jdjjq-3-Kmehutdgc Jevvp-8-Pcmfoeoot Beta Globulins PEP Interpretation Cholesterol LDL Cholesterol Direct Vitamin B12 Urine WBC (Auto) Urine Creatinine Crossmatch 03/28/16 03/28/16 03/28/16 05:14 08:41 10:56 WBC RBC Hgb Hct MCV MCH MCHC RDW Plt Count Lymph % (Auto) [place] % (Auto) Lymph # [place] # Baso # Seg Neutrophils % Seg Neuts % (Manual) Lymphocytes % (Manual) Monocytes % (Manual) Seg Neutrophils # Seg Neutrophils # Man Lymphocytes # (Manual) Monocytes # (Manual) Basophils # (Manual) Percent Retic PT INR APTT Heparin Anti-Xa Level POC ABG pH 7.457 H POC ABG pCO2 29.7 L 27.7 L POC ABG pO2 Sodium Potassium Chloride Carbon Dioxide BUN Creatinine Glucose POC Glucose 228 H Calcium Phosphorus Iron TIBC Lactate Dehydrogenase Total Creatine Kinase NT-Pro-B Natriuret Pep Total Protein Albumin Wjrjp-1-Uzifleagn Iqllz-0-Jkvbphzjh Beta Globulins PEP Interpretation Cholesterol LDL Cholesterol Direct Vitamin B12 Urine WBC (Auto) Urine Creatinine Crossmatch 03/28/16 03/28/16 03/28/16 11:37 13:29 16:22 WBC RBC Hgb Hct MCV MCH MCHC RDW Plt Count Lymph % (Auto) [place] % (Auto) Lymph # [place] # Baso # Seg Neutrophils % Seg Neuts % (Manual) Lymphocytes % (Manual) Monocytes % (Manual) Seg Neutrophils # Seg Neutrophils # Man Lymphocytes # (Manual) Monocytes # (Manual) Basophils # (Manual) Percent Retic PT INR APTT Heparin Anti-Xa Level POC ABG pH POC ABG pCO2 POC ABG pO2 Sodium Potassium Chloride Carbon Dioxide BUN Creatinine Glucose POC Glucose 226 H 200 H Calcium Phosphorus Iron TIBC Lactate Dehydrogenase Total Creatine Kinase 356 H NT-Pro-B Natriuret Pep Total Protein Albumin Hqtza-2-Xxgbqaghs Kspvf-8-Crnzclhqv Beta Globulins PEP Interpretation Cholesterol LDL Cholesterol Direct Vitamin B12 Urine WBC (Auto) Urine Creatinine Crossmatch 03/28/16 03/29/16 03/29/16 21:48 04:50 04:50 WBC RBC Hgb 11.5 L Hct 35.3 L MCV 81 L MCH 26 L MCHC RDW Plt Count 97 L Lymph % (Auto) [place] % (Auto) 11.7 H Lymph # [place] # 1.1 H Baso # Seg Neutrophils % Seg Neuts % (Manual) Lymphocytes % (Manual) Monocytes % (Manual) Seg Neutrophils # Seg Neutrophils # Man Lymphocytes # (Manual) Monocytes # (Manual) Basophils # (Manual) Percent Retic PT INR APTT Heparin Anti-Xa Level POC ABG pH POC ABG pCO2 POC ABG pO2 Sodium 136 L D Potassium 3.3 L Chloride Carbon Dioxide 20 L BUN Creatinine Glucose 386 H POC Glucose 188 H Calcium 6.8 L Phosphorus 1.6 L D Iron TIBC Lactate Dehydrogenase Total Creatine Kinase NT-Pro-B Natriuret Pep Total Protein Albumin Bgqww-5-Lwgcaxnra Rwdra-0-Lhhouymxh Beta Globulins PEP Interpretation Cholesterol LDL Cholesterol Direct Vitamin B12 Urine WBC (Auto) Urine Creatinine Crossmatch 03/29/16 03/29/16 03/29/16 08:10 11:12 16:09 WBC RBC Hgb Hct MCV MCH MCHC RDW Plt Count Lymph % (Auto) [place] % (Auto) Lymph # [place] # Baso # Seg Neutrophils % Seg Neuts % (Manual) Lymphocytes % (Manual) Monocytes % (Manual) Seg Neutrophils # Seg Neutrophils # Man Lymphocytes # (Manual) Monocytes # (Manual) Basophils # (Manual) Percent Retic PT INR APTT Heparin Anti-Xa Level POC ABG pH POC ABG pCO2 POC ABG pO2 Sodium Potassium Chloride Carbon Dioxide BUN Creatinine Glucose POC Glucose 230 H 180 H 46 L Calcium Phosphorus Iron TIBC Lactate Dehydrogenase Total Creatine Kinase NT-Pro-B Natriuret Pep Total Protein Albumin Hklkf-8-Foawedpij Gsjsl-4-Lrpjvnrsz Beta Globulins PEP Interpretation Cholesterol LDL Cholesterol Direct Vitamin B12 Urine WBC (Auto) Urine Creatinine Crossmatch 03/29/16 03/29/16 03/30/16 16:12 18:15 02:53 WBC RBC Hgb Hct MCV MCH MCHC RDW Plt Count Lymph % (Auto) [place] % (Auto) Lymph # [place] # Baso # Seg Neutrophils % Seg Neuts % (Manual) Lymphocytes % (Manual) Monocytes % (Manual) Seg Neutrophils # Seg Neutrophils # Man Lymphocytes # (Manual) Monocytes # (Manual) Basophils # (Manual) Percent Retic PT INR APTT Heparin Anti-Xa Level POC ABG pH POC ABG pCO2 POC ABG pO2 Sodium Potassium Chloride Carbon Dioxide BUN Creatinine Glucose POC Glucose 52 L 118 H 130 H Calcium Phosphorus Iron TIBC Lactate Dehydrogenase Total Creatine Kinase NT-Pro-B Natriuret Pep Total Protein Albumin Opypq-7-Etqlcakmr Eugoa-4-Muvudmutw Beta Globulins PEP Interpretation Cholesterol LDL Cholesterol Direct Vitamin B12 Urine WBC (Auto) Urine Creatinine Crossmatch 03/30/16 03/30/16 03/30/16 04:00 04:00 05:29 WBC RBC Hgb Hct MCV 81 L MCH 26 L MCHC RDW Plt Count 116 L Lymph % (Auto) 10.8 L [place] % (Auto) 13.1 H Lymph # 1.0 L [place] # 1.3 H Baso # Seg Neutrophils % 74.2 H Seg Neuts % (Manual) Lymphocytes % (Manual) Monocytes % (Manual) Seg Neutrophils # Seg Neutrophils # Man Lymphocytes # (Manual) Monocytes # (Manual) Basophils # (Manual) Percent Retic PT INR APTT Heparin Anti-Xa Level POC ABG pH 7.522 H POC ABG pCO2 22.7 L POC ABG pO2 137 H Sodium 147 H D Potassium Chloride 115.5 H Carbon Dioxide 20 L BUN Creatinine Glucose 116 H POC Glucose Calcium 7.6 L Phosphorus 2.3 L D Iron TIBC Lactate Dehydrogenase Total Creatine Kinase NT-Pro-B Natriuret Pep Total Protein Albumin Rccis-6-Owttfkahq Toldt-9-Fqgwpdsyl Beta Globulins PEP Interpretation Cholesterol LDL Cholesterol Direct Vitamin B12 Urine WBC (Auto) Urine Creatinine Crossmatch 03/30/16 03/30/16 03/30/16 05:47 08:05 08:59 WBC RBC Hgb Hct MCV MCH MCHC RDW Plt Count Lymph % (Auto) [place] % (Auto) Lymph # [place] # Baso # Seg Neutrophils % Seg Neuts % (Manual) Lymphocytes % (Manual) Monocytes % (Manual) Seg Neutrophils # Seg Neutrophils # Man Lymphocytes # (Manual) Monocytes # (Manual) Basophils # (Manual) Percent Retic PT INR APTT Heparin Anti-Xa Level POC ABG pH POC ABG pCO2 26.2 L POC ABG pO2 115 H Sodium Potassium Chloride Carbon Dioxide BUN Creatinine Glucose POC Glucose 138 H 171 H Calcium Phosphorus Iron TIBC Lactate Dehydrogenase Total Creatine Kinase NT-Pro-B Natriuret Pep Total Protein Albumin Gnelm-9-Ngpjikojx Urenc-2-Joddhlzlw Beta Globulins PEP Interpretation Cholesterol LDL Cholesterol Direct Vitamin B12 Urine WBC (Auto) Urine Creatinine Crossmatch 03/30/16 03/30/16 03/30/16 12:11 12:11 16:39 WBC RBC Hgb Hct MCV MCH MCHC RDW Plt Count Lymph % (Auto) [place] % (Auto) Lymph # [place] # Baso # Seg Neutrophils % Seg Neuts % (Manual) Lymphocytes % (Manual) Monocytes % (Manual) Seg Neutrophils # Seg Neutrophils # Man Lymphocytes # (Manual) Monocytes # (Manual) Basophils # (Manual) Percent Retic PT INR APTT Heparin Anti-Xa Level POC ABG pH 7.476 H POC ABG pCO2 29.0 L POC ABG pO2 Sodium Potassium Chloride Carbon Dioxide BUN Creatinine Glucose POC Glucose 142 H 59 L Calcium Phosphorus Iron TIBC Lactate Dehydrogenase Total Creatine Kinase NT-Pro-B Natriuret Pep Total Protein Albumin Fnswj-7-Vkfyouvmz Unabn-5-Hbauhemmi Beta Globulins PEP Interpretation Cholesterol LDL Cholesterol Direct Vitamin B12 Urine WBC (Auto) Urine Creatinine Crossmatch 03/30/16 03/30/16 03/31/16 18:41 21:59 05:02 WBC RBC Hgb Hct MCV MCH MCHC RDW Plt Count Lymph % (Auto) [place] % (Auto) Lymph # [place] # Baso # Seg Neutrophils % Seg Neuts % (Manual) Lymphocytes % (Manual) Monocytes % (Manual) Seg Neutrophils # Seg Neutrophils # Man Lymphocytes # (Manual) Monocytes # (Manual) Basophils # (Manual) Percent Retic PT INR APTT Heparin Anti-Xa Level POC ABG pH 7.519 H POC ABG pCO2 21.8 L POC ABG pO2 142 H Sodium Potassium Chloride Carbon Dioxide BUN Creatinine Glucose POC Glucose 145 H 154 H Calcium Phosphorus Iron TIBC Lactate Dehydrogenase Total Creatine Kinase NT-Pro-B Natriuret Pep Total Protein Albumin Dggja-6-Bhzrdtiig Fwpzx-8-Byhtxbkma Beta Globulins PEP Interpretation Cholesterol LDL Cholesterol Direct Vitamin B12 Urine WBC (Auto) Urine Creatinine Crossmatch 03/31/16 03/31/16 03/31/16 05:15 05:15 05:15 WBC 13.4 H RBC 5.21 H Hgb Hct MCV 81 L MCH 26 L MCHC RDW Plt Count Lymph % (Auto) 9.5 L [place] % (Auto) 14.0 H Lymph # [place] # 1.9 H Baso # Seg Neutrophils % 75.0 H Seg Neuts % (Manual) Lymphocytes % (Manual) Monocytes % (Manual) Seg Neutrophils # 10.1 H Seg Neutrophils # Man Lymphocytes # (Manual) Monocytes # (Manual) Basophils # (Manual) Percent Retic PT INR APTT Heparin Anti-Xa Level POC ABG pH POC ABG pCO2 POC ABG pO2 Sodium Potassium Chloride 108.5 H Carbon Dioxide 19 L BUN Creatinine Glucose 188 H POC Glucose Calcium Phosphorus Iron TIBC Lactate Dehydrogenase Total Creatine Kinase NT-Pro-B Natriuret Pep 1089 H Total Protein Albumin Ootyd-6-Bwtfymcwn Zxlfa-6-Kqdxciqmt Beta Globulins PEP Interpretation Cholesterol LDL Cholesterol Direct Vitamin B12 Urine WBC (Auto) Urine Creatinine Crossmatch 03/31/16 03/31/16 03/31/16 07:23 11:12 15:20 WBC RBC Hgb Hct MCV MCH MCHC RDW Plt Count Lymph % (Auto) [place] % (Auto) Lymph # [place] # Baso # Seg Neutrophils % Seg Neuts % (Manual) Lymphocytes % (Manual) Monocytes % (Manual) Seg Neutrophils # Seg Neutrophils # Man Lymphocytes # (Manual) Monocytes # (Manual) Basophils # (Manual) Percent Retic PT INR APTT Heparin Anti-Xa Level POC ABG pH POC ABG pCO2 POC ABG pO2 Sodium Potassium Chloride Carbon Dioxide BUN Creatinine Glucose POC Glucose 233 H 228 H 208 H Calcium Phosphorus Iron TIBC Lactate Dehydrogenase Total Creatine Kinase NT-Pro-B Natriuret Pep Total Protein Albumin Ifwye-9-Dzbznztus Rliml-3-Xcvfklvun Beta Globulins PEP Interpretation Cholesterol LDL Cholesterol Direct Vitamin B12 Urine WBC (Auto) Urine Creatinine Crossmatch 03/31/16 04/01/16 04/01/16 21:27 04:41 05:35 WBC 12.1 H RBC Hgb Hct MCV 81 L MCH 26 L MCHC RDW Plt Count Lymph % (Auto) 8.5 L [place] % (Auto) 14.0 H Lymph # 1.0 L [place] # 1.7 H Baso # Seg Neutrophils % 76.2 H Seg Neuts % (Manual) Lymphocytes % (Manual) Monocytes % (Manual) Seg Neutrophils # 9.2 H Seg Neutrophils # Man Lymphocytes # (Manual) Monocytes # (Manual) Basophils # (Manual) Percent Retic PT INR APTT Heparin Anti-Xa Level POC ABG pH 7.455 H POC ABG pCO2 31.0 L POC ABG pO2 Sodium Potassium Chloride Carbon Dioxide BUN Creatinine Glucose POC Glucose 162 H Calcium Phosphorus Iron TIBC Lactate Dehydrogenase Total Creatine Kinase NT-Pro-B Natriuret Pep Total Protein Albumin Eyglw-9-Rvnootxkp Glwkd-6-Yfnvtsgym Beta Globulins PEP Interpretation Cholesterol LDL Cholesterol Direct Vitamin B12 Urine WBC (Auto) Urine Creatinine Crossmatch 04/01/16 04/01/16 04/01/16 05:35 08:44 12:49 WBC RBC Hgb Hct MCV MCH MCHC RDW Plt Count Lymph % (Auto) [place] % (Auto) Lymph # [place] # Baso # Seg Neutrophils % Seg Neuts % (Manual) Lymphocytes % (Manual) Monocytes % (Manual) Seg Neutrophils # Seg Neutrophils # Man Lymphocytes # (Manual) Monocytes # (Manual) Basophils # (Manual) Percent Retic PT INR APTT Heparin Anti-Xa Level POC ABG pH POC ABG pCO2 POC ABG pO2 Sodium Potassium Chloride Carbon Dioxide BUN Creatinine Glucose 256 H POC Glucose 257 H 279 H Calcium 8.0 L Phosphorus Iron TIBC Lactate Dehydrogenase Total Creatine Kinase NT-Pro-B Natriuret Pep 1205 H Total Protein Albumin Qvxhy-6-Fqmauylxb Zwczk-0-Ottccpngg Beta Globulins PEP Interpretation Cholesterol LDL Cholesterol Direct Vitamin B12 Urine WBC (Auto) Urine Creatinine Crossmatch 04/01/16 04/02/16 04/02/16 18:12 00:42 04:17 WBC RBC Hgb Hct MCV MCH MCHC RDW Plt Count Lymph % (Auto) [place] % (Auto) Lymph # [place] # Baso # Seg Neutrophils % Seg Neuts % (Manual) Lymphocytes % (Manual) Monocytes % (Manual) Seg Neutrophils # Seg Neutrophils # Man Lymphocytes # (Manual) Monocytes # (Manual) Basophils # (Manual) Percent Retic PT INR APTT Heparin Anti-Xa Level POC ABG pH 7.582 H POC ABG pCO2 26.8 L POC ABG pO2 Sodium Potassium Chloride Carbon Dioxide BUN Creatinine Glucose POC Glucose 168 H 282 H Calcium Phosphorus Iron TIBC Lactate Dehydrogenase Total Creatine Kinase NT-Pro-B Natriuret Pep Total Protein Albumin Wgeir-5-Rwpjvugkp Oxyfn-5-Ureqssdtp Beta Globulins PEP Interpretation Cholesterol LDL Cholesterol Direct Vitamin B12 Urine WBC (Auto) Urine Creatinine Crossmatch 04/02/16 04/02/16 04/02/16 05:00 05:00 06:27 WBC 12.4 H RBC Hgb Hct MCV 81 L MCH 26 L MCHC RDW Plt Count Lymph % (Auto) 6.4 L [place] % (Auto) 13.3 H Lymph # 0.8 L [place] # 1.7 H Baso # Seg Neutrophils % 79.4 H Seg Neuts % (Manual) Lymphocytes % (Manual) Monocytes % (Manual) Seg Neutrophils # 9.9 H Seg Neutrophils # Man Lymphocytes # (Manual) Monocytes # (Manual) Basophils # (Manual) Percent Retic PT INR APTT Heparin Anti-Xa Level POC ABG pH POC ABG pCO2 POC ABG pO2 Sodium 146 H Potassium Chloride Carbon Dioxide BUN Creatinine Glucose 334 H POC Glucose 317 H Calcium 8.0 L Phosphorus Iron TIBC Lactate Dehydrogenase Total Creatine Kinase NT-Pro-B Natriuret Pep Total Protein Albumin Bivre-6-Kjfdotgvw Cdtyv-7-Vlqjruzgu Beta Globulins PEP Interpretation Cholesterol LDL Cholesterol Direct Vitamin B12 Urine WBC (Auto) Urine Creatinine Crossmatch 04/02/16 04/02/16 04/02/16 11:51 13:10 17:24 WBC RBC Hgb Hct MCV MCH MCHC RDW Plt Count Lymph % (Auto) [place] % (Auto) Lymph # [place] # Baso # Seg Neutrophils % Seg Neuts % (Manual) Lymphocytes % (Manual) Monocytes % (Manual) Seg Neutrophils # Seg Neutrophils # Man Lymphocytes # (Manual) Monocytes # (Manual) Basophils # (Manual) Percent Retic PT INR APTT Heparin Anti-Xa Level POC ABG pH 7.518 H POC ABG pCO2 POC ABG pO2 Sodium Potassium Chloride Carbon Dioxide BUN Creatinine Glucose POC Glucose 278 H 195 H Calcium Phosphorus Iron TIBC Lactate Dehydrogenase Total Creatine Kinase NT-Pro-B Natriuret Pep Total Protein Albumin Trvrz-4-Opouktoiv Ipxub-8-Whwyejlrx Beta Globulins PEP Interpretation Cholesterol LDL Cholesterol Direct Vitamin B12 Urine WBC (Auto) Urine Creatinine Crossmatch 04/03/16 04/03/16 04/03/16 00:18 04:10 04:10 WBC 14.3 H RBC Hgb Hct MCV 81 L MCH 26 L MCHC RDW Plt Count Lymph % (Auto) 9.0 L [place] % (Auto) 10.7 H Lymph # [place] # 1.5 H Baso # 0.2 H Seg Neutrophils % 78.5 H Seg Neuts % (Manual) Lymphocytes % (Manual) Monocytes % (Manual) Seg Neutrophils # 11.3 H Seg Neutrophils # Man Lymphocytes # (Manual) Monocytes # (Manual) Basophils # (Manual) Percent Retic PT INR APTT Heparin Anti-Xa Level POC ABG pH POC ABG pCO2 POC ABG pO2 Sodium 148 H Potassium Chloride 108.1 H Carbon Dioxide BUN 21 H Creatinine Glucose 227 H POC Glucose 144 H Calcium 8.2 L Phosphorus Iron TIBC Lactate Dehydrogenase Total Creatine Kinase NT-Pro-B Natriuret Pep Total Protein Albumin Ftshv-9-Dmfwsitpv Nytqt-7-Vkyxtdhqm Beta Globulins PEP Interpretation Cholesterol LDL Cholesterol Direct Vitamin B12 Urine WBC (Auto) Urine Creatinine Crossmatch 04/03/16 04/03/16 04/04/16 11:14 17:10 04:00 WBC 14.5 H RBC Hgb Hct MCV 81 L MCH 26 L MCHC RDW Plt Count Lymph % (Auto) 7.2 L [place] % (Auto) 7.6 H Lymph # 1.0 L [place] # 1.1 H Baso # Seg Neutrophils % 84.5 H Seg Neuts % (Manual) Lymphocytes % (Manual) Monocytes % (Manual) Seg Neutrophils # 12.3 H Seg Neutrophils # Man Lymphocytes # (Manual) Monocytes # (Manual) Basophils # (Manual) Percent Retic PT INR APTT Heparin Anti-Xa Level POC ABG pH POC ABG pCO2 POC ABG pO2 Sodium Potassium Chloride Carbon Dioxide BUN Creatinine Glucose POC Glucose 267 H 212 H Calcium Phosphorus Iron TIBC Lactate Dehydrogenase Total Creatine Kinase NT-Pro-B Natriuret Pep Total Protein Albumin Dqtrr-7-Ivolijgyb Bctjo-3-Qekzfiyeh Beta Globulins PEP Interpretation Cholesterol LDL Cholesterol Direct Vitamin B12 Urine WBC (Auto) Urine Creatinine Crossmatch 04/04/16 04/04/16 04/04/16 05:00 09:55 09:55 WBC RBC Hgb 11.5 L Hct MCV MCH MCHC RDW Plt Count Lymph % (Auto) [place] % (Auto) Lymph # [place] # Baso # Seg Neutrophils % Seg Neuts % (Manual) Lymphocytes % (Manual) Monocytes % (Manual) Seg Neutrophils # Seg Neutrophils # Man Lymphocytes # (Manual) Monocytes # (Manual) Basophils # (Manual) Percent Retic PT INR APTT 42.1 H Heparin Anti-Xa Level POC ABG pH POC ABG pCO2 POC ABG pO2 Sodium 146 H Potassium Chloride Carbon Dioxide BUN 22 H Creatinine Glucose 128 H POC Glucose Calcium Phosphorus Iron TIBC Lactate Dehydrogenase Total Creatine Kinase NT-Pro-B Natriuret Pep Total Protein Albumin Flbrn-4-Ouepdfexl Dpuvz-0-Hkntqjqtz Beta Globulins PEP Interpretation Cholesterol LDL Cholesterol Direct Vitamin B12 Urine WBC (Auto) Urine Creatinine Crossmatch 04/04/16 04/04/16 04/04/16 11:45 17:49 17:55 WBC RBC Hgb Hct MCV MCH MCHC RDW Plt Count Lymph % (Auto) [place] % (Auto) Lymph # [place] # Baso # Seg Neutrophils % Seg Neuts % (Manual) Lymphocytes % (Manual) Monocytes % (Manual) Seg Neutrophils # Seg Neutrophils # Man Lymphocytes # (Manual) Monocytes # (Manual) Basophils # (Manual) Percent Retic PT INR APTT Heparin Anti-Xa Level 1.19 H POC ABG pH POC ABG pCO2 POC ABG pO2 Sodium Potassium Chloride Carbon Dioxide BUN Creatinine Glucose POC Glucose 231 H 186 H Calcium Phosphorus Iron TIBC Lactate Dehydrogenase Total Creatine Kinase NT-Pro-B Natriuret Pep Total Protein Albumin Raqql-7-Rlbucjcmv Qrzbt-5-Bjqgvmwxv Beta Globulins PEP Interpretation Cholesterol LDL Cholesterol Direct Vitamin B12 Urine WBC (Auto) Urine Creatinine Crossmatch 04/05/16 04/05/16 04/05/16 00:35 05:32 05:42 WBC RBC Hgb Hct MCV MCH MCHC RDW Plt Count Lymph % (Auto) [place] % (Auto) Lymph # [place] # Baso # Seg Neutrophils % Seg Neuts % (Manual) Lymphocytes % (Manual) Monocytes % (Manual) Seg Neutrophils # Seg Neutrophils # Man Lymphocytes # (Manual) Monocytes # (Manual) Basophils # (Manual) Percent Retic PT INR APTT Heparin Anti-Xa Level POC ABG pH 7.491 H POC ABG pCO2 POC ABG pO2 Sodium Potassium Chloride Carbon Dioxide BUN Creatinine Glucose POC Glucose 192 H 242 H Calcium Phosphorus Iron TIBC Lactate Dehydrogenase Total Creatine Kinase NT-Pro-B Natriuret Pep Total Protein Albumin Nwozf-0-Ljfgjgwoo Ywbgo-1-Udslxcpfc Beta Globulins PEP Interpretation Cholesterol LDL Cholesterol Direct Vitamin B12 Urine WBC (Auto) Urine Creatinine Crossmatch 04/05/16 04/05/16 04/05/16 06:20 06:20 12:19 WBC 13.9 H RBC Hgb 11.6 L Hct MCV 81 L MCH 26 L MCHC RDW Plt Count Lymph % (Auto) 9.6 L [place] % (Auto) 8.7 H Lymph # [place] # 1.2 H Baso # Seg Neutrophils % 80.9 H Seg Neuts % (Manual) Lymphocytes % (Manual) Monocytes % (Manual) Seg Neutrophils # 11.3 H Seg Neutrophils # Man Lymphocytes # (Manual) Monocytes # (Manual) Basophils # (Manual) Percent Retic PT INR APTT Heparin Anti-Xa Level POC ABG pH POC ABG pCO2 POC ABG pO2 Sodium 148 H Potassium Chloride Carbon Dioxide BUN 23 H Creatinine Glucose 242 H POC Glucose 187 H Calcium Phosphorus Iron TIBC Lactate Dehydrogenase Total Creatine Kinase NT-Pro-B Natriuret Pep Total Protein Albumin Fnyxf-0-Bxdapgawg Nhtvr-6-Ztlzwhxch Beta Globulins PEP Interpretation Cholesterol LDL Cholesterol Direct Vitamin B12 Urine WBC (Auto) Urine Creatinine Crossmatch 04/05/16 04/05/16 04/06/16 17:10 23:45 05:23 WBC 13.0 H RBC Hgb Hct MCV 82 L MCH 26 L MCHC 31 L RDW Plt Count Lymph % (Auto) 6.7 L [place] % (Auto) 8.3 H Lymph # 0.9 L [place] # 1.1 H Baso # Seg Neutrophils % 84.6 H Seg Neuts % (Manual) Lymphocytes % (Manual) Monocytes % (Manual) Seg Neutrophils # 11.0 H Seg Neutrophils # Man Lymphocytes # (Manual) Monocytes # (Manual) Basophils # (Manual) Percent Retic PT INR APTT Heparin Anti-Xa Level POC ABG pH POC ABG pCO2 POC ABG pO2 Sodium Potassium Chloride Carbon Dioxide BUN Creatinine Glucose POC Glucose 169 H 202 H Calcium Phosphorus Iron TIBC Lactate Dehydrogenase Total Creatine Kinase NT-Pro-B Natriuret Pep Total Protein Albumin Hqunh-8-Evenukdci Pbguz-3-Nolrefjdi Beta Globulins PEP Interpretation Cholesterol LDL Cholesterol Direct Vitamin B12 Urine WBC (Auto) Urine Creatinine Crossmatch 04/06/16 04/06/16 04/06/16 05:23 05:23 06:11 WBC RBC Hgb Hct MCV MCH MCHC RDW Plt Count Lymph % (Auto) [place] % (Auto) Lymph # [place] # Baso # Seg Neutrophils % Seg Neuts % (Manual) Lymphocytes % (Manual) Monocytes % (Manual) Seg Neutrophils # Seg Neutrophils # Man Lymphocytes # (Manual) Monocytes # (Manual) Basophils # (Manual) Percent Retic PT INR APTT Heparin Anti-Xa Level 0.21 L POC ABG pH POC ABG pCO2 POC ABG pO2 Sodium 153 H Potassium Chloride 111.3 H Carbon Dioxide BUN 22 H Creatinine Glucose 62 L POC Glucose 56 L Calcium Phosphorus Iron TIBC Lactate Dehydrogenase Total Creatine Kinase NT-Pro-B Natriuret Pep Total Protein Albumin Rgxow-0-Uhtwnidqw Crbqf-4-Ozldxtnnh Beta Globulins PEP Interpretation Cholesterol LDL Cholesterol Direct Vitamin B12 Urine WBC (Auto) Urine Creatinine Crossmatch 04/06/16 04/06/16 04/06/16 06:52 11:36 14:58 WBC RBC Hgb Hct MCV MCH MCHC RDW Plt Count Lymph % (Auto) [place] % (Auto) Lymph # [place] # Baso # Seg Neutrophils % Seg Neuts % (Manual) Lymphocytes % (Manual) Monocytes % (Manual) Seg Neutrophils # Seg Neutrophils # Man Lymphocytes # (Manual) Monocytes # (Manual) Basophils # (Manual) Percent Retic PT INR APTT Heparin Anti-Xa Level POC ABG pH POC ABG pCO2 POC ABG pO2 Sodium Potassium Chloride Carbon Dioxide BUN Creatinine Glucose POC Glucose 206 H 139 H 147 H Calcium Phosphorus Iron TIBC Lactate Dehydrogenase Total Creatine Kinase NT-Pro-B Natriuret Pep Total Protein Albumin Rzrin-9-Pkdhiboxd Ddzhw-4-Ofrgrwtdq Beta Globulins PEP Interpretation Cholesterol LDL Cholesterol Direct Vitamin B12 Urine WBC (Auto) Urine Creatinine Crossmatch 04/06/16 04/06/16 04/06/16 16:03 21:18 23:53 WBC RBC Hgb Hct MCV MCH MCHC RDW Plt Count Lymph % (Auto) [place] % (Auto) Lymph # [place] # Baso # Seg Neutrophils % Seg Neuts % (Manual) Lymphocytes % (Manual) Monocytes % (Manual) Seg Neutrophils # Seg Neutrophils # Man Lymphocytes # (Manual) Monocytes # (Manual) Basophils # (Manual) Percent Retic PT INR APTT Heparin Anti-Xa Level POC ABG pH POC ABG pCO2 POC ABG pO2 Sodium Potassium Chloride Carbon Dioxide BUN Creatinine Glucose POC Glucose 154 H 293 H 301 H Calcium Phosphorus Iron TIBC Lactate Dehydrogenase Total Creatine Kinase NT-Pro-B Natriuret Pep Total Protein Albumin Kyibz-0-Oqcjogedp Qoidw-0-Wgkehdznx Beta Globulins PEP Interpretation Cholesterol LDL Cholesterol Direct Vitamin B12 Urine WBC (Auto) Urine Creatinine Crossmatch 04/07/16 04/07/16 04/07/16 02:30 05:11 05:11 WBC 12.5 H RBC Hgb 11.5 L Hct MCV 82 L MCH 26 L MCHC 31 L RDW Plt Count Lymph % (Auto) [place] % (Auto) Lymph # [place] # Baso # Seg Neutrophils % Seg Neuts % (Manual) Lymphocytes % (Manual) Monocytes % (Manual) Seg Neutrophils # Seg Neutrophils # Man Lymphocytes # (Manual) Monocytes # (Manual) Basophils # (Manual) Percent Retic PT INR APTT Heparin Anti-Xa Level 0.11 L POC ABG pH POC ABG pCO2 POC ABG pO2 Sodium 150 H Potassium Chloride 109.5 H Carbon Dioxide BUN 28 H Creatinine Glucose 264 H POC Glucose Calcium Phosphorus Iron TIBC Lactate Dehydrogenase Total Creatine Kinase NT-Pro-B Natriuret Pep Total Protein Albumin Uadzx-8-Kjxosmucc Gjujk-3-Vytyejirp Beta Globulins PEP Interpretation Cholesterol LDL Cholesterol Direct Vitamin B12 Urine WBC (Auto) Urine Creatinine Crossmatch 04/07/16 04/07/16 04/07/16 06:46 10:18 11:50 WBC RBC Hgb Hct MCV MCH MCHC RDW Plt Count Lymph % (Auto) [place] % (Auto) Lymph # [place] # Baso # Seg Neutrophils % Seg Neuts % (Manual) Lymphocytes % (Manual) Monocytes % (Manual) Seg Neutrophils # Seg Neutrophils # Man Lymphocytes # (Manual) Monocytes # (Manual) Basophils # (Manual) Percent Retic PT 15.1 H INR 1.20 H APTT Heparin Anti-Xa Level POC ABG pH POC ABG pCO2 POC ABG pO2 Sodium Potassium Chloride Carbon Dioxide BUN Creatinine Glucose POC Glucose 259 H 288 H Calcium Phosphorus Iron TIBC Lactate Dehydrogenase Total Creatine Kinase NT-Pro-B Natriuret Pep Total Protein Albumin Peome-3-Awarocqum Htneu-7-Exluosvcd Beta Globulins PEP Interpretation Cholesterol LDL Cholesterol Direct Vitamin B12 Urine WBC (Auto) Urine Creatinine Crossmatch 04/07/16 04/08/16 04/08/16 17:58 01:25 06:49 WBC RBC Hgb Hct MCV MCH MCHC RDW Plt Count Lymph % (Auto) [place] % (Auto) Lymph # [place] # Baso # Seg Neutrophils % Seg Neuts % (Manual) Lymphocytes % (Manual) Monocytes % (Manual) Seg Neutrophils # Seg Neutrophils # Man Lymphocytes # (Manual) Monocytes # (Manual) Basophils # (Manual) Percent Retic PT INR APTT Heparin Anti-Xa Level POC ABG pH POC ABG pCO2 POC ABG pO2 Sodium 156 H Potassium Chloride 114.7 H Carbon Dioxide BUN 33 H Creatinine Glucose 169 H POC Glucose 330 H 146 H Calcium Phosphorus Iron TIBC Lactate Dehydrogenase Total Creatine Kinase NT-Pro-B Natriuret Pep Total Protein Albumin Jxexh-2-Xarlpnkcw Hpwra-3-Jsnivnaqi Beta Globulins PEP Interpretation Cholesterol LDL Cholesterol Direct Vitamin B12 Urine WBC (Auto) Urine Creatinine Crossmatch 04/08/16 04/08/16 04/08/16 07:34 10:28 10:28 WBC RBC Hgb Hct MCV MCH MCHC RDW Plt Count Lymph % (Auto) [place] % (Auto) Lymph # [place] # Baso # Seg Neutrophils % Seg Neuts % (Manual) Lymphocytes % (Manual) Monocytes % (Manual) Seg Neutrophils # Seg Neutrophils # Man Lymphocytes # (Manual) Monocytes # (Manual) Basophils # (Manual) Percent Retic PT 15.5 H INR 1.24 H APTT Heparin Anti-Xa Level 0.24 L POC ABG pH POC ABG pCO2 POC ABG pO2 Sodium Potassium Chloride Carbon Dioxide BUN Creatinine Glucose POC Glucose 232 H Calcium Phosphorus Iron TIBC Lactate Dehydrogenase Total Creatine Kinase NT-Pro-B Natriuret Pep Total Protein Albumin Zkvge-0-Nkhhrndqp Wucgd-3-Nxtunkjoz Beta Globulins PEP Interpretation Cholesterol LDL Cholesterol Direct Vitamin B12 Urine WBC (Auto) Urine Creatinine Crossmatch 04/08/16 04/08/16 04/09/16 11:36 15:38 00:01 WBC RBC Hgb Hct MCV MCH MCHC RDW Plt Count Lymph % (Auto) [place] % (Auto) Lymph # [place] # Baso # Seg Neutrophils % Seg Neuts % (Manual) Lymphocytes % (Manual) Monocytes % (Manual) Seg Neutrophils # Seg Neutrophils # Man Lymphocytes # (Manual) Monocytes # (Manual) Basophils # (Manual) Percent Retic PT INR APTT Heparin Anti-Xa Level POC ABG pH POC ABG pCO2 POC ABG pO2 Sodium Potassium Chloride Carbon Dioxide BUN Creatinine Glucose POC Glucose 193 H 163 H 180 H Calcium Phosphorus Iron TIBC Lactate Dehydrogenase Total Creatine Kinase NT-Pro-B Natriuret Pep Total Protein Albumin Dwqak-4-Kzaunjzmj Jddum-5-Jtmmfymch Beta Globulins PEP Interpretation Cholesterol LDL Cholesterol Direct Vitamin B12 Urine WBC (Auto) Urine Creatinine Crossmatch 04/09/16 04/09/16 04/09/16 06:17 06:42 06:42 WBC RBC Hgb Hct MCV MCH MCHC RDW Plt Count Lymph % (Auto) [place] % (Auto) Lymph # [place] # Baso # Seg Neutrophils % Seg Neuts % (Manual) Lymphocytes % (Manual) Monocytes % (Manual) Seg Neutrophils # Seg Neutrophils # Man Lymphocytes # (Manual) Monocytes # (Manual) Basophils # (Manual) Percent Retic PT 17.4 H INR 1.43 H APTT Heparin Anti-Xa Level POC ABG pH POC ABG pCO2 POC ABG pO2 Sodium 153 H Potassium Chloride 113.2 H Carbon Dioxide BUN 29 H Creatinine Glucose 301 H POC Glucose 249 H Calcium 8.3 L Phosphorus Iron TIBC Lactate Dehydrogenase Total Creatine Kinase NT-Pro-B Natriuret Pep Total Protein Albumin Mbrns-5-Wnwblenwv Ssjlc-8-Vfehwpwzf Beta Globulins PEP Interpretation Cholesterol LDL Cholesterol Direct Vitamin B12 Urine WBC (Auto) Urine Creatinine Crossmatch 04/09/16 04/09/16 04/09/16 07:37 11:26 15:45 WBC RBC Hgb Hct MCV MCH MCHC RDW Plt Count Lymph % (Auto) [place] % (Auto) Lymph # [place] # Baso # Seg Neutrophils % Seg Neuts % (Manual) Lymphocytes % (Manual) Monocytes % (Manual) Seg Neutrophils # Seg Neutrophils # Man Lymphocytes # (Manual) Monocytes # (Manual) Basophils # (Manual) Percent Retic PT INR APTT Heparin Anti-Xa Level POC ABG pH POC ABG pCO2 POC ABG pO2 Sodium Potassium Chloride Carbon Dioxide BUN Creatinine Glucose POC Glucose 283 H 306 H 354 H Calcium Phosphorus Iron TIBC Lactate Dehydrogenase Total Creatine Kinase NT-Pro-B Natriuret Pep Total Protein Albumin Kwixz-6-Yzilptmne Nvgyl-0-Qmvxwdcqz Beta Globulins PEP Interpretation Cholesterol LDL Cholesterol Direct Vitamin B12 Urine WBC (Auto) Urine Creatinine Crossmatch 04/10/16 04/10/16 04/10/16 00:53 07:15 07:34 WBC RBC Hgb 11.3 L Hct MCV MCH MCHC RDW Plt Count Lymph % (Auto) [place] % (Auto) Lymph # [place] # Baso # Seg Neutrophils % Seg Neuts % (Manual) Lymphocytes % (Manual) Monocytes % (Manual) Seg Neutrophils # Seg Neutrophils # Man Lymphocytes # (Manual) Monocytes # (Manual) Basophils # (Manual) Percent Retic PT INR APTT Heparin Anti-Xa Level POC ABG pH POC ABG pCO2 POC ABG pO2 Sodium Potassium Chloride Carbon Dioxide BUN Creatinine Glucose POC Glucose 323 H 311 H Calcium Phosphorus Iron TIBC Lactate Dehydrogenase Total Creatine Kinase NT-Pro-B Natriuret Pep Total Protein Albumin Tpimu-5-Mnylxzyhy Cztzk-8-Kzmhwcioy Beta Globulins PEP Interpretation Cholesterol LDL Cholesterol Direct Vitamin B12 Urine WBC (Auto) Urine Creatinine Crossmatch 04/10/16 04/10/16 04/10/16 07:34 07:34 11:25 WBC RBC Hgb Hct MCV MCH MCHC RDW Plt Count Lymph % (Auto) [place] % (Auto) Lymph # [place] # Baso # Seg Neutrophils % Seg Neuts % (Manual) Lymphocytes % (Manual) Monocytes % (Manual) Seg Neutrophils # Seg Neutrophils # Man Lymphocytes # (Manual) Monocytes # (Manual) Basophils # (Manual) Percent Retic PT 17.3 H INR 1.42 H APTT Heparin Anti-Xa Level POC ABG pH POC ABG pCO2 POC ABG pO2 Sodium 158 H Potassium Chloride 118.6 H Carbon Dioxide BUN 30 H Creatinine Glucose 330 H POC Glucose 335 H Calcium 8.3 L Phosphorus Iron TIBC Lactate Dehydrogenase Total Creatine Kinase NT-Pro-B Natriuret Pep Total Protein Albumin Nulbn-3-Hpgybbcjc Ohlke-7-Edydwvqqi Beta Globulins PEP Interpretation Cholesterol LDL Cholesterol Direct Vitamin B12 Urine WBC (Auto) Urine Creatinine Crossmatch 04/10/16 04/11/16 04/11/16 16:21 00:29 07:47 WBC RBC Hgb Hct MCV MCH MCHC RDW Plt Count Lymph % (Auto) [place] % (Auto) Lymph # [place] # Baso # Seg Neutrophils % Seg Neuts % (Manual) Lymphocytes % (Manual) Monocytes % (Manual) Seg Neutrophils # Seg Neutrophils # Man Lymphocytes # (Manual) Monocytes # (Manual) Basophils # (Manual) Percent Retic PT 18.4 H INR 1.53 H APTT Heparin Anti-Xa Level POC ABG pH POC ABG pCO2 POC ABG pO2 Sodium Potassium Chloride Carbon Dioxide BUN Creatinine Glucose POC Glucose 230 H 162 H Calcium Phosphorus Iron TIBC Lactate Dehydrogenase Total Creatine Kinase NT-Pro-B Natriuret Pep Total Protein Albumin Liype-8-Hotnsxggh Orflv-5-Ezietfalh Beta Globulins PEP Interpretation Cholesterol LDL Cholesterol Direct Vitamin B12 Urine WBC (Auto) Urine Creatinine Crossmatch 04/11/16 04/11/16 04/12/16 07:47 11:22 04:54 WBC RBC Hgb 11.0 L Hct 35.0 L MCV MCH MCHC RDW Plt Count Lymph % (Auto) [place] % (Auto) Lymph # [place] # Baso # Seg Neutrophils % Seg Neuts % (Manual) Lymphocytes % (Manual) Monocytes % (Manual) Seg Neutrophils # Seg Neutrophils # Man Lymphocytes # (Manual) Monocytes # (Manual) Basophils # (Manual) Percent Retic PT INR APTT Heparin Anti-Xa Level POC ABG pH POC ABG pCO2 POC ABG pO2 Sodium 155 H Potassium Chloride 114.5 H Carbon Dioxide BUN 23 H Creatinine Glucose 157 H POC Glucose 229 H Calcium Phosphorus Iron TIBC Lactate Dehydrogenase Total Creatine Kinase NT-Pro-B Natriuret Pep Total Protein Albumin Aostm-9-Gumqujyco Emogz-9-Jxczykulq Beta Globulins PEP Interpretation Cholesterol LDL Cholesterol Direct Vitamin B12 Urine WBC (Auto) Urine Creatinine Crossmatch 04/12/16 04/12/16 04/12/16 04:54 04:54 05:57 WBC RBC Hgb Hct MCV MCH MCHC RDW Plt Count Lymph % (Auto) [place] % (Auto) Lymph # [place] # Baso # Seg Neutrophils % Seg Neuts % (Manual) Lymphocytes % (Manual) Monocytes % (Manual) Seg Neutrophils # Seg Neutrophils # Man Lymphocytes # (Manual) Monocytes # (Manual) Basophils # (Manual) Percent Retic PT 22.5 H INR 1.98 H APTT Heparin Anti-Xa Level 0.19 L POC ABG pH POC ABG pCO2 POC ABG pO2 Sodium 156 H Potassium Chloride 115.4 H Carbon Dioxide BUN 23 H Creatinine Glucose 143 H POC Glucose 194 H Calcium Phosphorus Iron TIBC Lactate Dehydrogenase Total Creatine Kinase NT-Pro-B Natriuret Pep Total Protein Albumin Sjnis-9-Icimibdrt Yovur-1-Sfrsdqgnr Beta Globulins PEP Interpretation Cholesterol LDL Cholesterol Direct Vitamin B12 Urine WBC (Auto) Urine Creatinine Crossmatch 04/12/16 04/12/16 04/12/16 12:34 19:01 23:30 WBC RBC Hgb Hct MCV MCH MCHC RDW Plt Count Lymph % (Auto) [place] % (Auto) Lymph # [place] # Baso # Seg Neutrophils % Seg Neuts % (Manual) Lymphocytes % (Manual) Monocytes % (Manual) Seg Neutrophils # Seg Neutrophils # Man Lymphocytes # (Manual) Monocytes # (Manual) Basophils # (Manual) Percent Retic PT INR APTT Heparin Anti-Xa Level POC ABG pH POC ABG pCO2 POC ABG pO2 Sodium Potassium Chloride Carbon Dioxide BUN Creatinine Glucose POC Glucose 291 H 235 H 154 H Calcium Phosphorus Iron TIBC Lactate Dehydrogenase Total Creatine Kinase NT-Pro-B Natriuret Pep Total Protein Albumin Bigqr-2-Tsqvnzjjl Kvony-8-Vknnzfnnw Beta Globulins PEP Interpretation Cholesterol LDL Cholesterol Direct Vitamin B12 Urine WBC (Auto) Urine Creatinine Crossmatch 04/13/16 04/13/16 04/13/16 05:16 05:16 05:28 WBC RBC Hgb Hct MCV MCH MCHC RDW Plt Count Lymph % (Auto) [place] % (Auto) Lymph # [place] # Baso # Seg Neutrophils % Seg Neuts % (Manual) Lymphocytes % (Manual) Monocytes % (Manual) Seg Neutrophils # Seg Neutrophils # Man Lymphocytes # (Manual) Monocytes # (Manual) Basophils # (Manual) Percent Retic PT 27.0 H INR 2.49 H APTT Heparin Anti-Xa Level 0.20 L POC ABG pH POC ABG pCO2 POC ABG pO2 Sodium 150 H Potassium Chloride 110.5 H Carbon Dioxide BUN 21 H Creatinine Glucose 159 H POC Glucose 177 H Calcium Phosphorus Iron TIBC Lactate Dehydrogenase Total Creatine Kinase NT-Pro-B Natriuret Pep Total Protein Albumin Ezljn-3-Acvjkeqqd Rhklb-0-Jeokowoqb Beta Globulins PEP Interpretation Cholesterol LDL Cholesterol Direct Vitamin B12 Urine WBC (Auto) Urine Creatinine Crossmatch 04/13/16 04/13/16 04/14/16 11:30 17:54 00:44 WBC RBC Hgb Hct MCV MCH MCHC RDW Plt Count Lymph % (Auto) [place] % (Auto) Lymph # [place] # Baso # Seg Neutrophils % Seg Neuts % (Manual) Lymphocytes % (Manual) Monocytes % (Manual) Seg Neutrophils # Seg Neutrophils # Man Lymphocytes # (Manual) Monocytes # (Manual) Basophils # (Manual) Percent Retic PT INR APTT Heparin Anti-Xa Level POC ABG pH POC ABG pCO2 POC ABG pO2 Sodium Potassium Chloride Carbon Dioxide BUN Creatinine Glucose POC Glucose 181 H 251 H 237 H Calcium Phosphorus Iron TIBC Lactate Dehydrogenase Total Creatine Kinase NT-Pro-B Natriuret Pep Total Protein Albumin Ygobj-0-Tpiltrkrp Ddiox-7-Tcsvqmyvy Beta Globulins PEP Interpretation Cholesterol LDL Cholesterol Direct Vitamin B12 Urine WBC (Auto) Urine Creatinine Crossmatch 04/14/16 04/14/16 04/14/16 05:00 05:42 05:42 WBC RBC Hgb Hct MCV MCH MCHC RDW Plt Count Lymph % (Auto) [place] % (Auto) Lymph # [place] # Baso # Seg Neutrophils % Seg Neuts % (Manual) Lymphocytes % (Manual) Monocytes % (Manual) Seg Neutrophils # Seg Neutrophils # Man Lymphocytes # (Manual) Monocytes # (Manual) Basophils # (Manual) Percent Retic PT 30.3 H INR 2.88 H APTT Heparin Anti-Xa Level 0.27 L POC ABG pH POC ABG pCO2 POC ABG pO2 Sodium Potassium 3.5 L Chloride Carbon Dioxide BUN Creatinine Glucose 160 H POC Glucose Calcium 8.2 L Phosphorus Iron TIBC Lactate Dehydrogenase Total Creatine Kinase NT-Pro-B Natriuret Pep Total Protein Albumin Kukgc-9-Hzucbyssf Smvvo-8-Peqvunzas Beta Globulins PEP Interpretation Cholesterol LDL Cholesterol Direct Vitamin B12 Urine WBC (Auto) Urine Creatinine Crossmatch 04/14/16 04/14/16 04/14/16 06:02 06:16 09:18 WBC 12.3 H RBC Hgb 11.4 L Hct MCV 82 L MCH 26 L MCHC RDW Plt Count Lymph % (Auto) [place] % (Auto) Lymph # [place] # Baso # Seg Neutrophils % Seg Neuts % (Manual) Lymphocytes % (Manual) Monocytes % (Manual) Seg Neutrophils # Seg Neutrophils # Man Lymphocytes # (Manual) Monocytes # (Manual) Basophils # (Manual) Percent Retic PT INR APTT Heparin Anti-Xa Level POC ABG pH POC ABG pCO2 POC ABG pO2 Sodium Potassium Chloride Carbon Dioxide BUN Creatinine Glucose POC Glucose 156 H 164 H Calcium Phosphorus Iron TIBC Lactate Dehydrogenase Total Creatine Kinase NT-Pro-B Natriuret Pep Total Protein Albumin Ciuob-5-Jgkjfywkw Vjcqh-6-Pwdjfxiwr Beta Globulins PEP Interpretation Cholesterol LDL Cholesterol Direct Vitamin B12 Urine WBC (Auto) Urine Creatinine Crossmatch 04/14/16 04/15/16 04/15/16 13:58 01:07 06:04 WBC RBC Hgb Hct MCV MCH MCHC RDW Plt Count Lymph % (Auto) [place] % (Auto) Lymph # [place] # Baso # Seg Neutrophils % Seg Neuts % (Manual) Lymphocytes % (Manual) Monocytes % (Manual) Seg Neutrophils # Seg Neutrophils # Man Lymphocytes # (Manual) Monocytes # (Manual) Basophils # (Manual) Percent Retic PT 24.9 H INR 2.25 H APTT Heparin Anti-Xa Level POC ABG pH POC ABG pCO2 POC ABG pO2 Sodium Potassium Chloride Carbon Dioxide BUN Creatinine Glucose POC Glucose 109 H 154 H Calcium Phosphorus Iron TIBC Lactate Dehydrogenase Total Creatine Kinase NT-Pro-B Natriuret Pep Total Protein Albumin Fchlv-6-Njxprgdmb Tqrqf-1-Elowvkypl Beta Globulins PEP Interpretation Cholesterol LDL Cholesterol Direct Vitamin B12 Urine WBC (Auto) Urine Creatinine Crossmatch 04/15/16 04/15/16 04/16/16 06:08 12:41 00:38 WBC RBC Hgb Hct MCV MCH MCHC RDW Plt Count Lymph % (Auto) [place] % (Auto) Lymph # [place] # Baso # Seg Neutrophils % Seg Neuts % (Manual) Lymphocytes % (Manual) Monocytes % (Manual) Seg Neutrophils # Seg Neutrophils # Man Lymphocytes # (Manual) Monocytes # (Manual) Basophils # (Manual) Percent Retic PT INR APTT Heparin Anti-Xa Level POC ABG pH POC ABG pCO2 POC ABG pO2 Sodium Potassium Chloride Carbon Dioxide BUN Creatinine Glucose POC Glucose 165 H 223 H 216 H Calcium Phosphorus Iron TIBC Lactate Dehydrogenase Total Creatine Kinase NT-Pro-B Natriuret Pep Total Protein Albumin Lcpkl-0-Sibpygesw Fpdnp-9-Esgglmvbj Beta Globulins PEP Interpretation Cholesterol LDL Cholesterol Direct Vitamin B12 Urine WBC (Auto) Urine Creatinine Crossmatch 04/16/16 04/16/16 04/16/16 05:45 07:09 14:00 WBC RBC Hgb Hct MCV MCH MCHC RDW Plt Count Lymph % (Auto) [place] % (Auto) Lymph # [place] # Baso # Seg Neutrophils % Seg Neuts % (Manual) Lymphocytes % (Manual) Monocytes % (Manual) Seg Neutrophils # Seg Neutrophils # Man Lymphocytes # (Manual) Monocytes # (Manual) Basophils # (Manual) Percent Retic PT 19.4 H INR 1.64 H APTT Heparin Anti-Xa Level 0.10 L POC ABG pH POC ABG pCO2 POC ABG pO2 Sodium Potassium Chloride Carbon Dioxide BUN Creatinine Glucose POC Glucose 207 H 69 L Calcium Phosphorus Iron TIBC Lactate Dehydrogenase Total Creatine Kinase NT-Pro-B Natriuret Pep Total Protein Albumin Jxhrb-7-Qzlxsvhuk Nvygz-4-Rzhovjokh Beta Globulins PEP Interpretation Cholesterol LDL Cholesterol Direct Vitamin B12 Urine WBC (Auto) Urine Creatinine Crossmatch 04/16/16 04/16/16 04/16/16 17:40 17:52 19:38 WBC RBC Hgb Hct MCV MCH MCHC RDW Plt Count Lymph % (Auto) [place] % (Auto) Lymph # [place] # Baso # Seg Neutrophils % Seg Neuts % (Manual) Lymphocytes % (Manual) Monocytes % (Manual) Seg Neutrophils # Seg Neutrophils # Man Lymphocytes # (Manual) Monocytes # (Manual) Basophils # (Manual) Percent Retic PT INR APTT Heparin Anti-Xa Level 0.26 L POC ABG pH 7.543 H 7.488 H POC ABG pCO2 26.3 L 30.3 L POC ABG pO2 55 L 203 H Sodium Potassium Chloride Carbon Dioxide BUN Creatinine Glucose POC Glucose Calcium Phosphorus Iron TIBC Lactate Dehydrogenase Total Creatine Kinase NT-Pro-B Natriuret Pep Total Protein Albumin Vwewx-9-Ntdicssqx Vuhyk-3-Wabcblxlc Beta Globulins PEP Interpretation Cholesterol LDL Cholesterol Direct Vitamin B12 Urine WBC (Auto) Urine Creatinine Crossmatch 04/17/16 04/17/16 04/17/16 00:04 05:10 05:36 WBC RBC Hgb Hct MCV MCH MCHC RDW Plt Count Lymph % (Auto) [place] % (Auto) Lymph # [place] # Baso # Seg Neutrophils % Seg Neuts % (Manual) Lymphocytes % (Manual) Monocytes % (Manual) Seg Neutrophils # Seg Neutrophils # Man Lymphocytes # (Manual) Monocytes # (Manual) Basophils # (Manual) Percent Retic PT INR APTT Heparin Anti-Xa Level POC ABG pH POC ABG pCO2 32.7 L POC ABG pO2 68 L Sodium Potassium Chloride Carbon Dioxide BUN Creatinine Glucose POC Glucose 113 H 161 H Calcium Phosphorus Iron TIBC Lactate Dehydrogenase Total Creatine Kinase NT-Pro-B Natriuret Pep Total Protein Albumin Mnomi-8-Ogmibgiyj Krgea-8-Cqyvofirs Beta Globulins PEP Interpretation Cholesterol LDL Cholesterol Direct Vitamin B12 Urine WBC (Auto) Urine Creatinine Crossmatch 04/17/16 04/17/16 04/17/16 05:41 08:37 11:46 WBC RBC Hgb Hct MCV MCH MCHC RDW Plt Count Lymph % (Auto) [place] % (Auto) Lymph # [place] # Baso # Seg Neutrophils % Seg Neuts % (Manual) Lymphocytes % (Manual) Monocytes % (Manual) Seg Neutrophils # Seg Neutrophils # Man Lymphocytes # (Manual) Monocytes # (Manual) Basophils # (Manual) Percent Retic PT 17.4 H INR 1.43 H APTT Heparin Anti-Xa Level POC ABG pH POC ABG pCO2 POC ABG pO2 Sodium Potassium Chloride Carbon Dioxide BUN Creatinine Glucose POC Glucose 154 H 138 H Calcium Phosphorus Iron TIBC Lactate Dehydrogenase Total Creatine Kinase NT-Pro-B Natriuret Pep Total Protein Albumin Rzqnc-0-Jlrmjvzpd Daxed-0-Hqmygojxq Beta Globulins PEP Interpretation Cholesterol LDL Cholesterol Direct Vitamin B12 Urine WBC (Auto) Urine Creatinine Crossmatch 04/17/16 04/17/16 04/17/16 12:17 12:17 21:20 WBC 16.5 H RBC 3.31 L Hgb 8.8 L Hct 26.9 L MCV 81 L MCH 27 L MCHC RDW 15.5 H Plt Count Lymph % (Auto) [place] % (Auto) Lymph # [place] # Baso # Seg Neutrophils % Seg Neuts % (Manual) Lymphocytes % (Manual) 3.0 L Monocytes % (Manual) Seg Neutrophils # Seg Neutrophils # Man 10.1 H Lymphocytes # (Manual) 0.5 L Monocytes # (Manual) Basophils # (Manual) Percent Retic PT INR APTT Heparin Anti-Xa Level 0.14 L POC ABG pH POC ABG pCO2 POC ABG pO2 Sodium Potassium Chloride Carbon Dioxide 21 L BUN 38 H Creatinine 1.8 H D Glucose 131 H POC Glucose Calcium 7.6 L Phosphorus Iron TIBC Lactate Dehydrogenase Total Creatine Kinase NT-Pro-B Natriuret Pep Total Protein Albumin Mypep-3-Eaqdkxjmo Akepl-6-Chhlxkggo Beta Globulins PEP Interpretation Cholesterol LDL Cholesterol Direct Vitamin B12 Urine WBC (Auto) Urine Creatinine Crossmatch 04/17/16 04/17/16 04/18/16 23:38 23:41 00:21 WBC RBC Hgb Hct MCV MCH MCHC RDW Plt Count Lymph % (Auto) [place] % (Auto) Lymph # [place] # Baso # Seg Neutrophils % Seg Neuts % (Manual) Lymphocytes % (Manual) Monocytes % (Manual) Seg Neutrophils # Seg Neutrophils # Man Lymphocytes # (Manual) Monocytes # (Manual) Basophils # (Manual) Percent Retic PT INR APTT Heparin Anti-Xa Level POC ABG pH POC ABG pCO2 POC ABG pO2 Sodium Potassium Chloride Carbon Dioxide BUN Creatinine Glucose POC Glucose < 40 L < 40 L 223 H Calcium Phosphorus Iron TIBC Lactate Dehydrogenase Total Creatine Kinase NT-Pro-B Natriuret Pep Total Protein Albumin Tywzg-1-Xiazqmbny Sbwte-9-Xbdgdzxfl Beta Globulins PEP Interpretation Cholesterol LDL Cholesterol Direct Vitamin B12 Urine WBC (Auto) Urine Creatinine Crossmatch 04/18/16 04/18/16 04/18/16 05:01 05:20 05:20 WBC 17.6 H RBC 3.44 L Hgb 9.1 L Hct 27.8 L MCV 81 L MCH 26 L MCHC RDW 15.5 H Plt Count Lymph % (Auto) 2.7 L [place] % (Auto) 8.3 H Lymph # 0.5 L [place] # 1.5 H Baso # Seg Neutrophils % 88.4 H Seg Neuts % (Manual) Lymphocytes % (Manual) Monocytes % (Manual) Seg Neutrophils # 15.6 H Seg Neutrophils # Man Lymphocytes # (Manual) Monocytes # (Manual) Basophils # (Manual) Percent Retic PT 17.4 H INR 1.43 H APTT Heparin Anti-Xa Level POC ABG pH 7.528 H POC ABG pCO2 27.9 L POC ABG pO2 Sodium Potassium Chloride Carbon Dioxide BUN Creatinine Glucose POC Glucose Calcium Phosphorus Iron TIBC Lactate Dehydrogenase Total Creatine Kinase NT-Pro-B Natriuret Pep Total Protein Albumin Dzimw-1-Bwgppougx Jtprm-1-Sayamfqlz Beta Globulins PEP Interpretation Cholesterol LDL Cholesterol Direct Vitamin B12 Urine WBC (Auto) Urine Creatinine Crossmatch 12/18/16 12/18/16 12/18/16 05:20 05:31 06:50 WBC RBC Hgb Hct MCV MCH MCHC RDW Plt Count Lymph % (Auto) [place] % (Auto) Lymph # [place] # Baso # Seg Neutrophils % Seg Neuts % (Manual) Lymphocytes % (Manual) Monocytes % (Manual) Seg Neutrophils # Seg Neutrophils # Man Lymphocytes # (Manual) Monocytes # (Manual) Basophils # (Manual) Percent Retic PT INR APTT Heparin Anti-Xa Level POC ABG pH POC ABG pCO2 POC ABG pO2 Sodium Potassium 3.4 L Chloride Carbon Dioxide 21 L BUN 22 H Creatinine Glucose POC Glucose 61 L 124 H Calcium 8.0 L Phosphorus Iron TIBC Lactate Dehydrogenase Total Creatine Kinase NT-Pro-B Natriuret Pep Total Protein Albumin Euefo-3-Kburvqybq Cgrsc-0-Iivgjsfnj Beta Globulins PEP Interpretation Cholesterol LDL Cholesterol Direct Vitamin B12 Urine WBC (Auto) Urine Creatinine Crossmatch 04/18/16 04/18/16 04/19/16 17:42 22:40 00:31 WBC RBC Hgb Hct MCV MCH MCHC RDW Plt Count Lymph % (Auto) [place] % (Auto) Lymph # [place] # Baso # Seg Neutrophils % Seg Neuts % (Manual) Lymphocytes % (Manual) Monocytes % (Manual) Seg Neutrophils # Seg Neutrophils # Man Lymphocytes # (Manual) Monocytes # (Manual) Basophils # (Manual) Percent Retic PT INR APTT Heparin Anti-Xa Level < 0.10 L POC ABG pH POC ABG pCO2 POC ABG pO2 Sodium Potassium Chloride Carbon Dioxide BUN Creatinine Glucose POC Glucose 159 H 134 H Calcium Phosphorus Iron TIBC Lactate Dehydrogenase Total Creatine Kinase NT-Pro-B Natriuret Pep Total Protein Albumin Vtrce-4-Fyrermcdq Vjxeb-3-Ifgslfzpu Beta Globulins PEP Interpretation Cholesterol LDL Cholesterol Direct Vitamin B12 Urine WBC (Auto) Urine Creatinine Crossmatch 04/19/16 04/19/16 04/19/16 04:18 04:18 04:25 WBC 19.0 H RBC 3.58 L Hgb 9.3 L Hct 28.8 L MCV 80 L MCH 26 L MCHC RDW 15.5 H Plt Count Lymph % (Auto) 2.8 L [place] % (Auto) 7.4 H Lymph # 0.5 L [place] # 1.4 H Baso # Seg Neutrophils % 89.4 H Seg Neuts % (Manual) Lymphocytes % (Manual) Monocytes % (Manual) Seg Neutrophils # 17.0 H Seg Neutrophils # Man Lymphocytes # (Manual) Monocytes # (Manual) Basophils # (Manual) Percent Retic PT INR APTT Heparin Anti-Xa Level POC ABG pH 7.527 H POC ABG pCO2 27.1 L POC ABG pO2 Sodium Potassium Chloride Carbon Dioxide BUN 22 H Creatinine Glucose 215 H POC Glucose Calcium 8.0 L Phosphorus Iron TIBC Lactate Dehydrogenase Total Creatine Kinase NT-Pro-B Natriuret Pep Total Protein Albumin Fabaz-8-Pqhfgvhnm Rpfau-1-Advimvrna Beta Globulins PEP Interpretation Cholesterol LDL Cholesterol Direct Vitamin B12 Urine WBC (Auto) Urine Creatinine Crossmatch 04/19/16 04/19/16 04/19/16 05:45 08:10 14:08 WBC RBC Hgb Hct MCV MCH MCHC RDW Plt Count Lymph % (Auto) [place] % (Auto) Lymph # [place] # Baso # Seg Neutrophils % Seg Neuts % (Manual) Lymphocytes % (Manual) Monocytes % (Manual) Seg Neutrophils # Seg Neutrophils # Man Lymphocytes # (Manual) Monocytes # (Manual) Basophils # (Manual) Percent Retic PT 22.1 H INR 1.93 H APTT Heparin Anti-Xa Level 0.17 L POC ABG pH POC ABG pCO2 POC ABG pO2 Sodium Potassium Chloride Carbon Dioxide BUN Creatinine Glucose POC Glucose 196 H 318 H Calcium Phosphorus Iron TIBC Lactate Dehydrogenase Total Creatine Kinase NT-Pro-B Natriuret Pep Total Protein Albumin Tgrjc-6-Gznamgdsb Kogex-4-Liwztaxqk Beta Globulins PEP Interpretation Cholesterol LDL Cholesterol Direct Vitamin B12 Urine WBC (Auto) Urine Creatinine Crossmatch 04/19/16 04/20/16 04/20/16 17:27 03:55 03:55 WBC 18.5 H RBC 3.19 L Hgb 8.4 L Hct 25.7 L MCV 80 L MCH 26 L MCHC RDW 15.9 H Plt Count Lymph % (Auto) 4.3 L [place] % (Auto) 10.1 H Lymph # 0.8 L [place] # 1.9 H Baso # Seg Neutrophils % 85.2 H Seg Neuts % (Manual) Lymphocytes % (Manual) Monocytes % (Manual) Seg Neutrophils # 15.8 H Seg Neutrophils # Man Lymphocytes # (Manual) Monocytes # (Manual) Basophils # (Manual) Percent Retic PT 22.0 H INR 1.92 H APTT Heparin Anti-Xa Level 0.14 L POC ABG pH POC ABG pCO2 POC ABG pO2 Sodium Potassium Chloride Carbon Dioxide BUN Creatinine Glucose POC Glucose 230 H Calcium Phosphorus Iron TIBC Lactate Dehydrogenase Total Creatine Kinase NT-Pro-B Natriuret Pep Total Protein Albumin Mzerb-5-Ydxfxjyxx Tomej-4-Fili[place]ak Beta Globulins PEP Interpretation Cholesterol LDL Cholesterol Direct Vitamin B12 Urine WBC (Auto) Urine Creatinine Crossmatch 04/20/16 04/20/16 04/20/16 03:55 04:16 05:52 WBC RBC Hgb Hct MCV MCH MCHC RDW Plt Count Lymph % (Auto) [place] % (Auto) Lymph # [place] # Baso # Seg Neutrophils % Seg Neuts % (Manual) Lymphocytes % (Manual) Monocytes % (Manual) Seg Neutrophils # Seg Neutrophils # Man Lymphocytes # (Manual) Monocytes # (Manual) Basophils # (Manual) Percent Retic PT INR APTT Heparin Anti-Xa Level POC ABG pH 7.474 H POC ABG pCO2 26.5 L POC ABG pO2 Sodium Potassium Chloride Carbon Dioxide 18 L BUN 38 H Creatinine 2.7 H D Glucose 159 H POC Glucose 214 H Calcium 8.0 L Phosphorus Iron TIBC Lactate Dehydrogenase Total Creatine Kinase NT-Pro-B Natriuret Pep Total Protein Albumin Fkigp-3-Iibtxtayk Xlbyg-7-Lpbkfduml Beta Globulins PEP Interpretation Cholesterol LDL Cholesterol Direct Vitamin B12 Urine WBC (Auto) Urine Creatinine Crossmatch 04/20/16 04/20/16 04/20/16 10:32 11:27 11:50 WBC RBC Hgb Hct MCV MCH MCHC RDW Plt Count Lymph % (Auto) [place] % (Auto) Lymph # [place] # Baso # Seg Neutrophils % Seg Neuts % (Manual) Lymphocytes % (Manual) Monocytes % (Manual) Seg Neutrophils # Seg Neutrophils # Man Lymphocytes # (Manual) Monocytes # (Manual) Basophils # (Manual) Percent Retic PT INR APTT Heparin Anti-Xa Level POC ABG pH POC ABG pCO2 POC ABG pO2 Sodium Potassium Chloride Carbon Dioxide 20 L BUN 45 H Creatinine 3.0 H Glucose 215 H POC Glucose 248 H Calcium 8.0 L Phosphorus Iron TIBC Lactate Dehydrogenase Total Creatine Kinase NT-Pro-B Natriuret Pep Total Protein Albumin Cmxxs-2-Kxdfyspqw Glwhc-8-Rqunmygxq Beta Globulins PEP Interpretation Cholesterol LDL Cholesterol Direct Vitamin B12 Urine WBC (Auto) Urine Creatinine 85.5 H Crossmatch 12/20/16 12/21/16 12/21/16 16:59 00:13 04:29 WBC RBC Hgb Hct MCV MCH MCHC RDW Plt Count Lymph % (Auto) [place] % (Auto) Lymph # [place] # Baso # Seg Neutrophils % Seg Neuts % (Manual) Lymphocytes % (Manual) Monocytes % (Manual) Seg Neutrophils # Seg Neutrophils # Man Lymphocytes # (Manual) Monocytes # (Manual) Basophils # (Manual) Percent Retic PT 18.1 H INR 1.50 H APTT Heparin Anti-Xa Level 0.10 L POC ABG pH POC ABG pCO2 POC ABG pO2 Sodium Potassium Chloride Carbon Dioxide BUN Creatinine Glucose POC Glucose 312 H 287 H Calcium Phosphorus Iron TIBC Lactate Dehydrogenase Total Creatine Kinase NT-Pro-B Natriuret Pep Total Protein Albumin Afcps-0-Figmdshpz Ojazy-2-Fhougihul Beta Globulins PEP Interpretation Cholesterol LDL Cholesterol Direct Vitamin B12 Urine WBC (Auto) Urine Creatinine Crossmatch 04/21/16 04/21/16 04/21/16 04:29 04:29 04:55 WBC 15.4 H RBC 3.24 L Hgb 8.4 L Hct 25.6 L MCV 79 L MCH 26 L MCHC RDW 16.1 H Plt Count Lymph % (Auto) 6.8 L [place] % (Auto) 12.9 H Lymph # 1.0 L [place] # 2.0 H Baso # Seg Neutrophils % 79.8 H Seg Neuts % (Manual) Lymphocytes % (Manual) Monocytes % (Manual) Seg Neutrophils # 12.3 H Seg Neutrophils # Man Lymphocytes # (Manual) Monocytes # (Manual) Basophils # (Manual) Percent Retic PT INR APTT Heparin Anti-Xa Level POC ABG pH 7.512 H POC ABG pCO2 25.4 L POC ABG pO2 Sodium 135 L Potassium Chloride Carbon Dioxide 18 L BUN 57 H Creatinine 3.9 H Glucose 202 H POC Glucose Calcium 8.0 L Phosphorus Iron TIBC Lactate Dehydrogenase Total Creatine Kinase NT-Pro-B Natriuret Pep Total Protein Albumin Lxctw-4-Vccuwuvrn Alnrc-7-Dpguvploc Beta Globulins PEP Interpretation Cholesterol LDL Cholesterol Direct Vitamin B12 Urine WBC (Auto) Urine Creatinine Crossmatch 04/21/16 04/21/16 04/21/16 05:20 12:08 12:16 WBC RBC Hgb Hct MCV MCH MCHC RDW Plt Count Lymph % (Auto) [place] % (Auto) Lymph # [place] # Baso # Seg Neutrophils % Seg Neuts % (Manual) Lymphocytes % (Manual) Monocytes % (Manual) Seg Neutrophils # Seg Neutrophils # Man Lymphocytes # (Manual) Monocytes # (Manual) Basophils # (Manual) Percent Retic PT INR APTT Heparin Anti-Xa Level 0.16 L POC ABG pH POC ABG pCO2 POC ABG pO2 Sodium Potassium Chloride Carbon Dioxide BUN Creatinine Glucose POC Glucose 203 H 221 H Calcium Phosphorus Iron TIBC Lactate Dehydrogenase Total Creatine Kinase NT-Pro-B Natriuret Pep Total Protein Albumin Nhlsc-8-Rojmmurbb Nmzdv-6-Acwkkwuzm Beta Globulins PEP Interpretation Cholesterol LDL Cholesterol Direct Vitamin B12 Urine WBC (Auto) Urine Creatinine Crossmatch 04/21/16 04/22/16 04/22/16 17:22 05:01 05:20 WBC RBC Hgb Hct MCV MCH MCHC RDW Plt Count Lymph % (Auto) [place] % (Auto) Lymph # [place] # Baso # Seg Neutrophils % Seg Neuts % (Manual) Lymphocytes % (Manual) Monocytes % (Manual) Seg Neutrophils # Seg Neutrophils # Man Lymphocytes # (Manual) Monocytes # (Manual) Basophils # (Manual) Percent Retic PT 17.5 H INR 1.44 H APTT Heparin Anti-Xa Level POC ABG pH 7.460 H POC ABG pCO2 27.9 L POC ABG pO2 Sodium Potassium Chloride Carbon Dioxide BUN Creatinine Glucose POC Glucose 189 H Calcium Phosphorus Iron TIBC Lactate Dehydrogenase Total Creatine Kinase NT-Pro-B Natriuret Pep Total Protein Albumin Vxrgr-6-Khqwlxtaz Axsch-9-Xcwsybldy Beta Globulins PEP Interpretation Cholesterol LDL Cholesterol Direct Vitamin B12 Urine WBC (Auto) Urine Creatinine Crossmatch 04/22/16 04/22/16 04/22/16 05:43 06:40 08:08 WBC RBC Hgb Hct MCV MCH MCHC RDW Plt Count Lymph % (Auto) [place] % (Auto) Lymph # [place] # Baso # Seg Neutrophils % Seg Neuts % (Manual) Lymphocytes % (Manual) Monocytes % (Manual) Seg Neutrophils # Seg Neutrophils # Man Lymphocytes # (Manual) Monocytes # (Manual) Basophils # (Manual) Percent Retic PT INR APTT Heparin Anti-Xa Level POC ABG pH POC ABG pCO2 POC ABG pO2 Sodium Potassium Chloride Carbon Dioxide BUN Creatinine Glucose POC Glucose 56 L 136 H 134 H Calcium Phosphorus Iron TIBC Lactate Dehydrogenase Total Creatine Kinase NT-Pro-B Natriuret Pep Total Protein Albumin Hbkmg-5-Zszxgsfgw Nlbhj-1-[place] Beta Globulins PEP Interpretation Cholesterol LDL Cholesterol Direct Vitamin B12 Urine WBC (Auto) Urine Creatinine Crossmatch 04/22/16 04/22/16 04/22/16 11:18 12:10 18:17 WBC RBC Hgb Hct MCV MCH MCHC RDW Plt Count Lymph % (Auto) [place] % (Auto) Lymph # [place] # Baso # Seg Neutrophils % Seg Neuts % (Manual) Lymphocytes % (Manual) Monocytes % (Manual) Seg Neutrophils # Seg Neutrophils # Man Lymphocytes # (Manual) Monocytes # (Manual) Basophils # (Manual) Percent Retic PT INR APTT Heparin Anti-Xa Level 0.12 L POC ABG pH POC ABG pCO2 POC ABG pO2 Sodium Potassium Chloride Carbon Dioxide BUN Creatinine Glucose POC Glucose 142 H 227 H Calcium Phosphorus Iron TIBC Lactate Dehydrogenase Total Creatine Kinase NT-Pro-B Natriuret Pep Total Protein Albumin Pihvc-7-Sdpxtioeg Eiopq-9-Orbsixxsb Beta Globulins PEP Interpretation Cholesterol LDL Cholesterol Direct Vitamin B12 Urine WBC (Auto) Urine Creatinine Crossmatch 04/22/16 04/22/16 04/23/16 22:28 23:47 04:49 WBC RBC Hgb Hct MCV MCH MCHC RDW Plt Count Lymph % (Auto) [place] % (Auto) Lymph # [place] # Baso # Seg Neutrophils % Seg Neuts % (Manual) Lymphocytes % (Manual) Monocytes % (Manual) Seg Neutrophils # Seg Neutrophils # Man Lymphocytes # (Manual) Monocytes # (Manual) Basophils # (Manual) Percent Retic PT INR APTT Heparin Anti-Xa Level 0.16 L POC ABG pH POC ABG pCO2 32.6 L POC ABG pO2 122 H Sodium Potassium Chloride Carbon Dioxide BUN Creatinine Glucose POC Glucose 266 H Calcium Phosphorus Iron TIBC Lactate Dehydrogenase Total Creatine Kinase NT-Pro-B Natriuret Pep Total Protein Albumin Ncbil-5-Pdbvzbtyo Pdmxv-3-Jcgyzdwav Beta Globulins PEP Interpretation Cholesterol LDL Cholesterol Direct Vitamin B12 Urine WBC (Auto) Urine Creatinine Crossmatch 04/23/16 04/23/16 04/23/16 05:41 08:05 08:34 WBC RBC Hgb Hct MCV MCH MCHC RDW Plt Count Lymph % (Auto) [place] % (Auto) Lymph # [place] # Baso # Seg Neutrophils % Seg Neuts % (Manual) Lymphocytes % (Manual) Monocytes % (Manual) Seg Neutrophils # Seg Neutrophils # Man Lymphocytes # (Manual) Monocytes # (Manual) Basophils # (Manual) Percent Retic PT INR APTT Heparin Anti-Xa Level POC ABG pH POC ABG pCO2 POC ABG pO2 Sodium Potassium Chloride 109.5 H Carbon Dioxide 21 L BUN 23 H Creatinine Glucose 227 H POC Glucose 227 H 224 H Calcium 8.2 L Phosphorus Iron TIBC Lactate Dehydrogenase Total Creatine Kinase NT-Pro-B Natriuret Pep Total Protein Albumin Iotyu-3-Emzybobpm Kuflm-1-Jlodjmxfr Beta Globulins PEP Interpretation Cholesterol LDL Cholesterol Direct Vitamin B12 Urine WBC (Auto) Urine Creatinine Crossmatch 04/23/16 04/23/16 04/23/16 10:45 11:37 22:49 WBC RBC Hgb Hct MCV MCH MCHC RDW Plt Count Lymph % (Auto) [place] % (Auto) Lymph # [place] # Baso # Seg Neutrophils % Seg Neuts % (Manual) Lymphocytes % (Manual) Monocytes % (Manual) Seg Neutrophils # Seg Neutrophils # Man Lymphocytes # (Manual) Monocytes # (Manual) Basophils # (Manual) Percent Retic PT 15.9 H INR 1.28 H APTT Heparin Anti-Xa Level 0.12 L POC ABG pH POC ABG pCO2 POC ABG pO2 Sodium Potassium Chloride Carbon Dioxide BUN Creatinine Glucose POC Glucose 256 H Calcium Phosphorus Iron TIBC Lactate Dehydrogenase Total Creatine Kinase NT-Pro-B Natriuret Pep Total Protein Albumin Thnwx-1-Jacsmfqdr Bevrb-3-Bsqeljoph Beta Globulins PEP Interpretation Cholesterol LDL Cholesterol Direct Vitamin B12 Urine WBC (Auto) Urine Creatinine Crossmatch 04/23/16 04/24/16 04/24/16 23:59 05:29 06:03 WBC RBC Hgb Hct MCV MCH MCHC RDW Plt Count Lymph % (Auto) [place] % (Auto) Lymph # [place] # Baso # Seg Neutrophils % Seg Neuts % (Manual) Lymphocytes % (Manual) Monocytes % (Manual) Seg Neutrophils # Seg Neutrophils # Man Lymphocytes # (Manual) Monocytes # (Manual) Basophils # (Manual) Percent Retic PT INR APTT Heparin Anti-Xa Level POC ABG pH 7.464 H POC ABG pCO2 32.4 L POC ABG pO2 115 H Sodium Potassium Chloride Carbon Dioxide BUN Creatinine Glucose POC Glucose 176 H 256 H Calcium Phosphorus Iron TIBC Lactate Dehydrogenase Total Creatine Kinase NT-Pro-B Natriuret Pep Total Protein Albumin Egyno-1-Wisohsytd Ubfxr-1-Virxmmkcj Beta Globulins PEP Interpretation Cholesterol LDL Cholesterol Direct Vitamin B12 Urine WBC (Auto) Urine Creatinine Crossmatch 04/24/16 04/24/16 04/24/16 07:59 12:10 17:17 WBC RBC Hgb Hct MCV MCH MCHC RDW Plt Count Lymph % (Auto) [place] % (Auto) Lymph # [place] # Baso # Seg Neutrophils % Seg Neuts % (Manual) Lymphocytes % (Manual) Monocytes % (Manual) Seg Neutrophils # Seg Neutrophils # Man Lymphocytes # (Manual) Monocytes # (Manual) Basophils # (Manual) Percent Retic PT INR APTT Heparin Anti-Xa Level 0.18 L POC ABG pH POC ABG pCO2 POC ABG pO2 Sodium Potassium Chloride Carbon Dioxide BUN Creatinine Glucose POC Glucose 304 H 325 H Calcium Phosphorus Iron TIBC Lactate Dehydrogenase Total Creatine Kinase NT-Pro-B Natriuret Pep Total Protein Albumin Trpfc-6-Ejzxqayen Fzfwq-9-Ujyhvkokp Beta Globulins PEP Interpretation Cholesterol LDL Cholesterol Direct Vitamin B12 Urine WBC (Auto) Urine Creatinine Crossmatch 04/25/16 04/25/16 04/25/16 00:52 06:40 06:44 WBC RBC Hgb Hct MCV MCH MCHC RDW Plt Count Lymph % (Auto) [place] % (Auto) Lymph # [place] # Baso # Seg Neutrophils % Seg Neuts % (Manual) Lymphocytes % (Manual) Monocytes % (Manual) Seg Neutrophils # Seg Neutrophils # Man Lymphocytes # (Manual) Monocytes # (Manual) Basophils # (Manual) Percent Retic PT INR APTT Heparin Anti-Xa Level 0.11 L POC ABG pH POC ABG pCO2 POC ABG pO2 Sodium Potassium Chloride Carbon Dioxide BUN Creatinine Glucose POC Glucose 212 H 184 H Calcium Phosphorus Iron TIBC Lactate Dehydrogenase Total Creatine Kinase NT-Pro-B Natriuret Pep Total Protein Albumin Etcyh-4-Cghkbdten Zfopn-4-Mzpbfmgkl Beta Globulins PEP Interpretation Cholesterol LDL Cholesterol Direct Vitamin B12 Urine WBC (Auto) Urine Creatinine Crossmatch 04/25/16 04/25/16 04/25/16 11:40 13:26 17:27 WBC RBC Hgb Hct MCV MCH MCHC RDW Plt Count Lymph % (Auto) [place] % (Auto) Lymph # [place] # Baso # Seg Neutrophils % Seg Neuts % (Manual) Lymphocytes % (Manual) Monocytes % (Manual) Seg Neutrophils # Seg Neutrophils # Man Lymphocytes # (Manual) Monocytes # (Manual) Basophils # (Manual) Percent Retic PT INR APTT Heparin Anti-Xa Level 0.21 L POC ABG pH POC ABG pCO2 POC ABG pO2 Sodium Potassium Chloride Carbon Dioxide BUN Creatinine Glucose POC Glucose 206 H 204 H Calcium Phosphorus Iron TIBC Lactate Dehydrogenase Total Creatine Kinase NT-Pro-B Natriuret Pep Total Protein Albumin Cfsck-4-Sfwtwzdwx Xexsg-7-Floryvhbz Beta Globulins PEP Interpretation Cholesterol LDL Cholesterol Direct Vitamin B12 Urine WBC (Auto) Urine Creatinine Crossmatch 04/25/16 04/26/16 04/26/16 23:46 06:31 11:51 WBC RBC Hgb Hct MCV MCH MCHC RDW Plt Count Lymph % (Auto) [place] % (Auto) Lymph # [place] # Baso # Seg Neutrophils % Seg Neuts % (Manual) Lymphocytes % (Manual) Monocytes % (Manual) Seg Neutrophils # Seg Neutrophils # Man Lymphocytes # (Manual) Monocytes # (Manual) Basophils # (Manual) Percent Retic PT INR APTT Heparin Anti-Xa Level POC ABG pH POC ABG pCO2 POC ABG pO2 Sodium Potassium Chloride Carbon Dioxide BUN Creatinine Glucose POC Glucose 162 H 148 H 178 H Calcium Phosphorus Iron TIBC Lactate Dehydrogenase Total Creatine Kinase NT-Pro-B Natriuret Pep Total Protein Albumin Qsbbo-6-Eryovjzlo Qxiaa-6-Dakxkihlh Beta Globulins PEP Interpretation Cholesterol LDL Cholesterol Direct Vitamin B12 Urine WBC (Auto) Urine Creatinine Crossmatch 04/26/16 04/26/16 04/26/16 12:17 16:16 18:14 WBC RBC Hgb Hct MCV MCH MCHC RDW Plt Count Lymph % (Auto) [place] % (Auto) Lymph # [place] # Baso # Seg Neutrophils % Seg Neuts % (Manual) Lymphocytes % (Manual) Monocytes % (Manual) Seg Neutrophils # Seg Neutrophils # Man Lymphocytes # (Manual) Monocytes # (Manual) Basophils # (Manual) Percent Retic PT INR APTT Heparin Anti-Xa Level POC ABG pH 7.513 H POC ABG pCO2 POC ABG pO2 76 L Sodium Potassium Chloride Carbon Dioxide BUN Creatinine Glucose POC Glucose 186 H 172 H Calcium Phosphorus Iron TIBC Lactate Dehydrogenase Total Creatine Kinase NT-Pro-B Natriuret Pep Total Protein Albumin Luwbu-0-Pvlkxiexk Nsyrs-7-Mvajebomx Beta Globulins PEP Interpretation Cholesterol LDL Cholesterol Direct Vitamin B12 Urine WBC (Auto) Urine Creatinine Crossmatch 04/26/16 04/26/16 04/27/16 19:27 23:28 04:21 WBC 13.1 H RBC 2.99 L Hgb 7.8 L Hct 24.0 L MCV 81 L MCH 26 L MCHC RDW 16.7 H Plt Count 486 H Lymph % (Auto) 12.5 L [place] % (Auto) 7.9 H Lymph # [place] # 1.0 H Baso # Seg Neutrophils % 77.5 H Seg Neuts % (Manual) Lymphocytes % (Manual) Monocytes % (Manual) Seg Neutrophils # 10.2 H Seg Neutrophils # Man Lymphocytes # (Manual) Monocytes # (Manual) Basophils # (Manual) Percent Retic PT INR APTT Heparin Anti-Xa Level 0.22 L POC ABG pH POC ABG pCO2 POC ABG pO2 Sodium Potassium Chloride Carbon Dioxide BUN Creatinine Glucose POC Glucose 141 H Calcium Phosphorus Iron TIBC Lactate Dehydrogenase Total Creatine Kinase NT-Pro-B Natriuret Pep Total Protein Albumin Rfrql-0-Dlovdimvv Yiqyc-7-Gjgymkfll Beta Globulins PEP Interpretation Cholesterol LDL Cholesterol Direct Vitamin B12 Urine WBC (Auto) Urine Creatinine Crossmatch 04/27/16 04/27/16 04/27/16 04:21 05:46 11:04 WBC RBC Hgb Hct MCV MCH MCHC RDW Plt Count Lymph % (Auto) [place] % (Auto) Lymph # [place] # Baso # Seg Neutrophils % Seg Neuts % (Manual) Lymphocytes % (Manual) Monocytes % (Manual) Seg Neutrophils # Seg Neutrophils # Man Lymphocytes # (Manual) Monocytes # (Manual) Basophils # (Manual) Percent Retic PT INR APTT Heparin Anti-Xa Level POC ABG pH 7.489 H POC ABG pCO2 POC ABG pO2 71 L Sodium Potassium Chloride Carbon Dioxide BUN Creatinine 0.6 L Glucose 187 H POC Glucose 192 H Calcium 8.0 L Phosphorus Iron TIBC Lactate Dehydrogenase Total Creatine Kinase NT-Pro-B Natriuret Pep Total Protein 6.0 L Albumin 2.0 L Clobh-8-Heyfltirj Zvkxy-8-Tiwcbflrf Beta Globulins PEP Interpretation Cholesterol LDL Cholesterol Direct Vitamin B12 Urine WBC (Auto) Urine Creatinine Crossmatch 04/27/16 04/27/16 04/27/16 14:12 21:58 23:38 WBC RBC Hgb Hct MCV MCH MCHC RDW Plt Count Lymph % (Auto) [place] % (Auto) Lymph # [place] # Baso # Seg Neutrophils % Seg Neuts % (Manual) Lymphocytes % (Manual) Monocytes % (Manual) Seg Neutrophils # Seg Neutrophils # Man Lymphocytes # (Manual) Monocytes # (Manual) Basophils # (Manual) Percent Retic PT INR APTT Heparin Anti-Xa Level 0.24 L POC ABG pH POC ABG pCO2 POC ABG pO2 Sodium Potassium Chloride Carbon Dioxide BUN Creatinine Glucose POC Glucose 216 H 181 H Calcium Phosphorus Iron TIBC Lactate Dehydrogenase Total Creatine Kinase NT-Pro-B Natriuret Pep Total Protein Albumin Cmdhh-9-Hgopjiasm Tnnst-5-Ufikrtyke Beta Globulins PEP Interpretation Cholesterol LDL Cholesterol Direct Vitamin B12 Urine WBC (Auto) Urine Creatinine Crossmatch 04/28/16 04/28/16 04/28/16 04:28 05:52 11:31 WBC RBC Hgb Hct MCV MCH MCHC RDW Plt Count Lymph % (Auto) [place] % (Auto) Lymph # [place] # Baso # Seg Neutrophils % Seg Neuts % (Manual) Lymphocytes % (Manual) Monocytes % (Manual) Seg Neutrophils # Seg Neutrophils # Man Lymphocytes # (Manual) Monocytes # (Manual) Basophils # (Manual) Percent Retic PT INR APTT Heparin Anti-Xa Level POC ABG pH 7.524 H POC ABG pCO2 POC ABG pO2 Sodium Potassium Chloride Carbon Dioxide BUN Creatinine Glucose POC Glucose 254 H 280 H Calcium Phosphorus Iron TIBC Lactate Dehydrogenase Total Creatine Kinase NT-Pro-B Natriuret Pep Total Protein Albumin Gdwfl-9-Srsxuknkx Pelaa-2-Cjddmhlds Beta Globulins PEP Interpretation Cholesterol LDL Cholesterol Direct Vitamin B12 Urine WBC (Auto) Urine Creatinine Crossmatch 04/28/16 04/28/16 04/29/16 17:30 19:52 00:47 WBC RBC Hgb Hct MCV MCH MCHC RDW Plt Count Lymph % (Auto) [place] % (Auto) Lymph # [place] # Baso # Seg Neutrophils % Seg Neuts % (Manual) Lymphocytes % (Manual) Monocytes % (Manual) Seg Neutrophils # Seg Neutrophils # Man Lymphocytes # (Manual) Monocytes # (Manual) Basophils # (Manual) Percent Retic PT INR APTT Heparin Anti-Xa Level 0.15 L POC ABG pH POC ABG pCO2 POC ABG pO2 Sodium Potassium Chloride Carbon Dioxide BUN Creatinine Glucose POC Glucose 208 H 265 H Calcium Phosphorus Iron TIBC Lactate Dehydrogenase Total Creatine Kinase NT-Pro-B Natriuret Pep Total Protein Albumin Ugham-4-Sitasnjcd Ihsrv-5-Ufxzkwysa Beta Globulins PEP Interpretation Cholesterol LDL Cholesterol Direct Vitamin B12 Urine WBC (Auto) Urine Creatinine Crossmatch 12/04/29/16 04/29/16 04:00 04:00 04:29 WBC 13.4 H RBC 2.56 L Hgb 6.9 L Hct 20.6 L MCV 81 L MCH 27 L MCHC RDW 16.2 H Plt Count 513 H Lymph % (Auto) 10.0 L [place] % (Auto) 12.0 H Lymph # [place] # 1.6 H Baso # Seg Neutrophils % 77.1 H Seg Neuts % (Manual) Lymphocytes % (Manual) Monocytes % (Manual) Seg Neutrophils # 10.4 H Seg Neutrophils # Man Lymphocytes # (Manual) Monocytes # (Manual) Basophils # (Manual) Percent Retic PT INR APTT Heparin Anti-Xa Level POC ABG pH 7.501 H POC ABG pCO2 POC ABG pO2 76 L Sodium Potassium Chloride Carbon Dioxide BUN 27 H Creatinine Glucose 204 H POC Glucose Calcium 8.1 L Phosphorus Iron TIBC Lactate Dehydrogenase Total Creatine Kinase NT-Pro-B Natriuret Pep Total Protein Albumin Nofzy-2-Ebsmoznog Mzirv-1-Xuiwgoxdz Beta Globulins PEP Interpretation Cholesterol LDL Cholesterol Direct Vitamin B12 Urine WBC (Auto) Urine Creatinine Crossmatch 04/29/16 04/29/16 04/29/16 06:03 10:05 10:16 WBC RBC Hgb Hct MCV MCH MCHC RDW Plt Count Lymph % (Auto) [place] % (Auto) Lymph # [place] # Baso # Seg Neutrophils % Seg Neuts % (Manual) Lymphocytes % (Manual) Monocytes % (Manual) Seg Neutrophils # Seg Neutrophils # Man Lymphocytes # (Manual) Monocytes # (Manual) Basophils # (Manual) Percent Retic 3.68 H PT INR APTT Heparin Anti-Xa Level POC ABG pH POC ABG pCO2 POC ABG pO2 Sodium Potassium Chloride Carbon Dioxide BUN Creatinine Glucose POC Glucose 192 H Calcium Phosphorus Iron TIBC Lactate Dehydrogenase Total Creatine Kinase NT-Pro-B Natriuret Pep Total Protein Albumin Uyyyq-2-Ojcgjcjus Gbpns-6-Xrvyjtsca Beta Globulins PEP Interpretation Cholesterol LDL Cholesterol Direct Vitamin B12 Urine WBC (Auto) Urine Creatinine Crossmatch See Detail 04/29/16 04/29/16 04/29/16 10:16 10:16 11:23 WBC RBC Hgb Hct MCV MCH MCHC RDW Plt Count Lymph % (Auto) [place] % (Auto) Lymph # [place] # Baso # Seg Neutrophils % Seg Neuts % (Manual) Lymphocytes % (Manual) Monocytes % (Manual) Seg Neutrophils # Seg Neutrophils # Man Lymphocytes # (Manual) Monocytes # (Manual) Basophils # (Manual) Percent Retic PT INR APTT Heparin Anti-Xa Level POC ABG pH POC ABG pCO2 POC ABG pO2 Sodium Potassium Chloride Carbon Dioxide BUN Creatinine Glucose POC Glucose 116 H Calcium Phosphorus Iron 10 L TIBC 138 L Lactate Dehydrogenase 204 H Total Creatine Kinase NT-Pro-B Natriuret Pep Total Protein Albumin Iakni-4-Tfjogtsow Wkzib-8-Zxcylzfrs Beta Globulins PEP Interpretation Cholesterol LDL Cholesterol Direct Vitamin B12 1005 H Urine WBC (Auto) Urine Creatinine Crossmatch 04/29/16 04/29/16 04/30/16 17:34 23:19 03:19 WBC RBC Hgb 9.0 L Hct 26.7 L D MCV MCH MCHC RDW Plt Count Lymph % (Auto) [place] % (Auto) Lymph # [place] # Baso # Seg Neutrophils % Seg Neuts % (Manual) Lymphocytes % (Manual) Monocytes % (Manual) Seg Neutrophils # Seg Neutrophils # Man Lymphocytes # (Manual) Monocytes # (Manual) Basophils # (Manual) Percent Retic PT INR APTT Heparin Anti-Xa Level POC ABG pH POC ABG pCO2 POC ABG pO2 Sodium Potassium Chloride Carbon Dioxide BUN Creatinine Glucose POC Glucose 142 H 242 H Calcium Phosphorus Iron TIBC Lactate Dehydrogenase Total Creatine Kinase NT-Pro-B Natriuret Pep Total Protein Albumin Igxhj-0-Zpzqokxvi Mteye-0-Skzffmgck Beta Globulins PEP Interpretation Cholesterol LDL Cholesterol Direct Vitamin B12 Urine WBC (Auto) Urine Creatinine Crossmatch 04/30/16 04/30/16 04/30/16 04:10 04:10 04:32 WBC 13.8 H RBC 3.54 L Hgb 9.3 L Hct 29.1 L MCV 82 L MCH 26 L MCHC RDW 16.5 H Plt Count 535 H Lymph % (Auto) 7.5 L [place] % (Auto) 13.8 H Lymph # 1.0 L [place] # 1.9 H Baso # Seg Neutrophils % 78.0 H Seg Neuts % (Manual) Lymphocytes % (Manual) Monocytes % (Manual) Seg Neutrophils # 10.7 H Seg Neutrophils # Man Lymphocytes # (Manual) Monocytes # (Manual) Basophils # (Manual) Percent Retic PT INR APTT Heparin Anti-Xa Level POC ABG pH 7.519 H POC ABG pCO2 33.6 L POC ABG pO2 79 L Sodium 146 H Potassium Chloride Carbon Dioxide BUN Creatinine 0.7 L Glucose 242 H POC Glucose Calcium 8.3 L Phosphorus Iron TIBC Lactate Dehydrogenase Total Creatine Kinase NT-Pro-B Natriuret Pep Total Protein Albumin Xyyns-5-Axezlofsa Rktgy-2-Nqdwiwhee Beta Globulins PEP Interpretation Cholesterol LDL Cholesterol Direct Vitamin B12 Urine WBC (Auto) Urine Creatinine Crossmatch 04/30/16 04/30/16 04/30/16 05:33 11:23 17:26 WBC RBC Hgb Hct MCV MCH MCHC RDW Plt Count Lymph % (Auto) [place] % (Auto) Lymph # [place] # Baso # Seg Neutrophils % Seg Neuts % (Manual) Lymphocytes % (Manual) Monocytes % (Manual) Seg Neutrophils # Seg Neutrophils # Man Lymphocytes # (Manual) Monocytes # (Manual) Basophils # (Manual) Percent Retic PT INR APTT Heparin Anti-Xa Level POC ABG pH POC ABG pCO2 POC ABG pO2 Sodium Potassium Chloride Carbon Dioxide BUN Creatinine Glucose POC Glucose 242 H 305 H 281 H Calcium Phosphorus Iron TIBC Lactate Dehydrogenase Total Creatine Kinase NT-Pro-B Natriuret Pep Total Protein Albumin Lehaq-6-Bxqnofcsj Vlevh-8-Mlamhuynj Beta Globulins PEP Interpretation Cholesterol LDL Cholesterol Direct Vitamin B12 Urine WBC (Auto) Urine Creatinine Crossmatch 04/30/16 05/01/16 05/01/16 23:53 04:00 04:00 WBC 15.9 H RBC 2.99 L Hgb 7.9 L Hct 24.4 L MCV 82 L MCH 26 L MCHC RDW 16.9 H Plt Count 481 H Lymph % (Auto) 9.3 L [place] % (Auto) 15.0 H Lymph # [place] # 2.4 H Baso # Seg Neutrophils % 74.9 H Seg Neuts % (Manual) Lymphocytes % (Manual) Monocytes % (Manual) Seg Neutrophils # 11.9 H Seg Neutrophils # Man Lymphocytes # (Manual) Monocytes # (Manual) Basophils # (Manual) Percent Retic PT INR APTT Heparin Anti-Xa Level POC ABG pH POC ABG pCO2 POC ABG pO2 Sodium 147 H Potassium Chloride 107.8 H Carbon Dioxide BUN 22 H Creatinine 0.7 L Glucose 229 H POC Glucose 207 H Calcium 8.2 L Phosphorus Iron TIBC Lactate Dehydrogenase Total Creatine Kinase NT-Pro-B Natriuret Pep Total Protein Albumin Sygwx-1-Slcsokeqx Oahlg-2-Kymyojknh Beta Globulins PEP Interpretation Cholesterol LDL Cholesterol Direct Vitamin B12 Urine WBC (Auto) Urine Creatinine Crossmatch 05/01/16 05/01/16 05/01/16 05:12 07:41 12:33 WBC RBC Hgb Hct MCV MCH MCHC RDW Plt Count Lymph % (Auto) [place] % (Auto) Lymph # [place] # Baso # Seg Neutrophils % Seg Neuts % (Manual) Lymphocytes % (Manual) Monocytes % (Manual) Seg Neutrophils # Seg Neutrophils # Man Lymphocytes # (Manual) Monocytes # (Manual) Basophils # (Manual) Percent Retic PT INR APTT Heparin Anti-Xa Level 0.16 L POC ABG pH POC ABG pCO2 POC ABG pO2 Sodium Potassium Chloride Carbon Dioxide BUN Creatinine Glucose POC Glucose 284 H 186 H Calcium Phosphorus Iron TIBC Lactate Dehydrogenase Total Creatine Kinase NT-Pro-B Natriuret Pep Total Protein Albumin Fhovw-7-Zosjzmdly Soqnf-8-Rtuevmffd Beta Globulins PEP Interpretation Cholesterol LDL Cholesterol Direct Vitamin B12 Urine WBC (Auto) Urine Creatinine Crossmatch 05/01/16 05/01/16 05/02/16 17:24 23:19 04:48 WBC 17.2 H RBC 3.09 L Hgb 8.1 L Hct 25.5 L MCV 83 L MCH 26 L MCHC RDW 17.3 H Plt Count 507 H Lymph % (Auto) 8.0 L [place] % (Auto) 13.6 H Lymph # [place] # 2.3 H Baso # Seg Neutrophils % 77.5 H Seg Neuts % (Manual) Lymphocytes % (Manual) Monocytes % (Manual) Seg Neutrophils # 13.4 H Seg Neutrophils # Man Lymphocytes # (Manual) Monocytes # (Manual) Basophils # (Manual) Percent Retic PT INR APTT Heparin Anti-Xa Level POC ABG pH POC ABG pCO2 POC ABG pO2 Sodium Potassium Chloride Carbon Dioxide BUN Creatinine Glucose POC Glucose 171 H 132 H Calcium Phosphorus Iron TIBC Lactate Dehydrogenase Total Creatine Kinase NT-Pro-B Natriuret Pep Total Protein Albumin Ofmfr-8-Qzkreyrtw Uhclw-1-Qtjtvoxlc Beta Globulins PEP Interpretation Cholesterol LDL Cholesterol Direct Vitamin B12 Urine WBC (Auto) Urine Creatinine Crossmatch 05/02/16 05/02/16 05/02/16 04:48 04:48 05:42 WBC RBC Hgb Hct MCV MCH MCHC RDW Plt Count Lymph % (Auto) [place] % (Auto) Lymph # [place] # Baso # Seg Neutrophils % Seg Neuts % (Manual) Lymphocytes % (Manual) Monocytes % (Manual) Seg Neutrophils # Seg Neutrophils # Man Lymphocytes # (Manual) Monocytes # (Manual) Basophils # (Manual) Percent Retic PT INR APTT Heparin Anti-Xa Level 0.19 L POC ABG pH POC ABG pCO2 POC ABG pO2 Sodium 149 H Potassium Chloride 109.9 H Carbon Dioxide BUN 24 H Creatinine Glucose 224 H POC Glucose 253 H Calcium 8.2 L Phosphorus Iron TIBC Lactate Dehydrogenase Total Creatine Kinase NT-Pro-B Natriuret Pep Total Protein Albumin Wwyen-1-Wzdzkzvqh Nmhno-2-Ioeooojxe Beta Globulins PEP Interpretation Cholesterol LDL Cholesterol Direct Vitamin B12 Urine WBC (Auto) Urine Creatinine Crossmatch 05/02/16 05/02/16 05/02/16 12:01 16:40 23:35 WBC RBC Hgb Hct MCV MCH MCHC RDW Plt Count Lymph % (Auto) [place] % (Auto) Lymph # [place] # Baso # Seg Neutrophils % Seg Neuts % (Manual) Lymphocytes % (Manual) Monocytes % (Manual) Seg Neutrophils # Seg Neutrophils # Man Lymphocytes # (Manual) Monocytes # (Manual) Basophils # (Manual) Percent Retic PT INR APTT Heparin Anti-Xa Level POC ABG pH POC ABG pCO2 POC ABG pO2 Sodium Potassium Chloride Carbon Dioxide BUN Creatinine Glucose POC Glucose 197 H 126 H 303 H Calcium Phosphorus Iron TIBC Lactate Dehydrogenase Total Creatine Kinase NT-Pro-B Natriuret Pep Total Protein Albumin Sbegi-9-Xyxbjaphh Tkcbs-4-Inkhvidrk Beta Globulins PEP Interpretation Cholesterol LDL Cholesterol Direct Vitamin B12 Urine WBC (Auto) Urine Creatinine Crossmatch 05/03/16 05/03/16 05/03/16 04:31 04:31 04:31 WBC 19.1 H RBC 3.15 L Hgb 8.6 L Hct 25.7 L MCV 82 L MCH MCHC RDW 17.4 H Plt Count 525 H Lymph % (Auto) [place] % (Auto) Lymph # [place] # Baso # Seg Neutrophils % Seg Neuts % (Manual) Lymphocytes % (Manual) 10.0 L Monocytes % (Manual) 13.0 H Seg Neutrophils # Seg Neutrophils # Man 13.2 H Lymphocytes # (Manual) Monocytes # (Manual) 2.5 H Basophils # (Manual) 0.2 H Percent Retic PT INR APTT Heparin Anti-Xa Level 0.16 L POC ABG pH POC ABG pCO2 POC ABG pO2 Sodium 151 H Potassium Chloride 112.9 H Carbon Dioxide BUN 24 H Creatinine 0.7 L Glucose 303 H POC Glucose Calcium Phosphorus Iron TIBC Lactate Dehydrogenase Total Creatine Kinase NT-Pro-B Natriuret Pep Total Protein Albumin Ieclq-5-Ilxjmmiev Lltas-5-Yfgwkqnwh Beta Globulins PEP Interpretation Cholesterol LDL Cholesterol Direct Vitamin B12 Urine WBC (Auto) Urine Creatinine Crossmatch 05/03/16 05/03/16 05/04/16 12:08 18:05 00:11 WBC RBC Hgb Hct MCV MCH MCHC RDW Plt Count Lymph % (Auto) [place] % (Auto) Lymph # [place] # Baso # Seg Neutrophils % Seg Neuts % (Manual) Lymphocytes % (Manual) Monocytes % (Manual) Seg Neutrophils # Seg Neutrophils # Man Lymphocytes # (Manual) Monocytes # (Manual) Basophils # (Manual) Percent Retic PT INR APTT Heparin Anti-Xa Level POC ABG pH POC ABG pCO2 POC ABG pO2 Sodium Potassium Chloride Carbon Dioxide BUN Creatinine Glucose POC Glucose 452 H 370 H 374 H Calcium Phosphorus Iron TIBC Lactate Dehydrogenase Total Creatine Kinase NT-Pro-B Natriuret Pep Total Protein Albumin Bnuql-2-Cclkcvdha Cafwn-9-Jmjmcfztn Beta Globulins PEP Interpretation Cholesterol LDL Cholesterol Direct Vitamin B12 Urine WBC (Auto) Urine Creatinine Crossmatch 05/04/16 05/04/16 05/04/16 04:31 04:31 04:31 WBC 19.8 H RBC 2.90 L Hgb 7.8 L Hct 23.8 L MCV 82 L MCH 27 L MCHC RDW 17.9 H Plt Count 504 H Lymph % (Auto) [place] % (Auto) Lymph # [place] # Baso # Seg Neutrophils % Seg Neuts % (Manual) Lymphocytes % (Manual) 11.0 L Monocytes % (Manual) 8.0 H Seg Neutrophils # Seg Neutrophils # Man 13.3 H Lymphocytes # (Manual) Monocytes # (Manual) 1.6 H Basophils # (Manual) Percent Retic PT INR APTT Heparin Anti-Xa Level 0.15 L POC ABG pH POC ABG pCO2 POC ABG pO2 Sodium 146 H Potassium Chloride Carbon Dioxide BUN 30 H Creatinine 0.7 L Glucose 321 H POC Glucose Calcium 8.3 L Phosphorus Iron TIBC Lactate Dehydrogenase Total Creatine Kinase NT-Pro-B Natriuret Pep Total Protein Albumin Dzgvo-7-Kuhweuezy Szfch-9-Lnadlishc Beta Globulins PEP Interpretation Cholesterol LDL Cholesterol Direct Vitamin B12 Urine WBC (Auto) Urine Creatinine Crossmatch 05/04/16 05/04/16 05/04/16 10:20 11:57 17:36 WBC RBC Hgb Hct MCV MCH MCHC RDW Plt Count Lymph % (Auto) [place] % (Auto) Lymph # [place] # Baso # Seg Neutrophils % Seg Neuts % (Manual) Lymphocytes % (Manual) Monocytes % (Manual) Seg Neutrophils # Seg Neutrophils # Man Lymphocytes # (Manual) Monocytes # (Manual) Basophils # (Manual) Percent Retic PT INR APTT Heparin Anti-Xa Level POC ABG pH POC ABG pCO2 POC ABG pO2 Sodium Potassium Chloride Carbon Dioxide BUN Creatinine Glucose POC Glucose 303 H 271 H Calcium Phosphorus Iron TIBC Lactate Dehydrogenase Total Creatine Kinase NT-Pro-B Natriuret Pep Total Protein Albumin Eboqy-5-Llheyfhwc Ieich-0-Otylyksbf Beta Globulins PEP Interpretation Cholesterol LDL Cholesterol Direct Vitamin B12 Urine WBC (Auto) > 182.0 H Urine Creatinine Crossmatch 05/04/16 05/05/16 05/05/16 23:53 04:13 04:13 WBC 20.9 H RBC 2.92 L Hgb 7.6 L Hct 23.9 L MCV 82 L MCH 26 L MCHC RDW 17.9 H Plt Count 526 H Lymph % (Auto) [place] % (Auto) Lymph # [place] # [place] # Seg Neutrophils % Seg Neuts % (Manual) 93.0 H Lymphocytes % (Manual) 2.0 L Monocytes % (Manual) Seg Neutrophils # Seg Neutrophils # Man 19.4 H Lymphocytes # (Manual) 0.4 L Monocytes # (Manual) Basophils # (Manual) Percent Retic PT INR APTT Heparin Anti-Xa Level POC ABG pH POC ABG pCO2 POC ABG pO2 Sodium 146 H Potassium Chloride Carbon Dioxide BUN 30 H Creatinine 0.7 L Glucose 250 H POC Glucose 235 H Calcium 8.1 L Phosphorus Iron TIBC Lactate Dehydrogenase Total Creatine Kinase NT-Pro-B Natriuret Pep Total Protein Albumin Fpagp-4-Tscymfkqw Durmf-6-Vrffsmody Beta Globulins PEP Interpretation Cholesterol LDL Cholesterol Direct Vitamin B12 Urine WBC (Auto) Urine Creatinine Crossmatch 05/05/16 05/05/16 05/05/16 05:27 07:36 12:06 WBC RBC Hgb Hct MCV MCH MCHC RDW Plt Count Lymph % (Auto) [place] % (Auto) Lymph # [place] # Baso # Seg Neutrophils % Seg Neuts % (Manual) Lymphocytes % (Manual) Monocytes % (Manual) Seg Neutrophils # Seg Neutrophils # Man Lymphocytes # (Manual) Monocytes # (Manual) Basophils # (Manual) Percent Retic PT INR APTT Heparin Anti-Xa Level < 0.10 L POC ABG pH POC ABG pCO2 POC ABG pO2 Sodium Potassium Chloride Carbon Dioxide BUN Creatinine Glucose POC Glucose 287 H 301 H Calcium Phosphorus Iron TIBC Lactate Dehydrogenase Total Creatine Kinase NT-Pro-B Natriuret Pep Total Protein Albumin Wjphs-1-Pkzgejgke Morfo-0-Hwbepdspt Beta Globulins PEP Interpretation Cholesterol LDL Cholesterol Direct Vitamin B12 Urine WBC (Auto) Urine Creatinine Crossmatch 05/05/16 05/05/16 05/06/16 15:58 17:30 00:10 WBC RBC Hgb Hct MCV MCH MCHC RDW Plt Count Lymph % (Auto) [place] % (Auto) Lymph # [place] # Baso # Seg Neutrophils % Seg Neuts % (Manual) Lymphocytes % (Manual) Monocytes % (Manual) Seg Neutrophils # Seg Neutrophils # Man Lymphocytes # (Manual) Monocytes # (Manual) Basophils # (Manual) Percent Retic PT INR APTT Heparin Anti-Xa Level 0.17 L POC ABG pH POC ABG pCO2 POC ABG pO2 Sodium Potassium Chloride Carbon Dioxide BUN Creatinine Glucose POC Glucose 226 H 161 H Calcium Phosphorus Iron TIBC Lactate Dehydrogenase Total Creatine Kinase NT-Pro-B Natriuret Pep Total Protein Albumin Xvhej-2-Fppnzixfn Vybof-0-Grgmfcqgc Beta Globulins PEP Interpretation Cholesterol LDL Cholesterol Direct Vitamin B12 Urine WBC (Auto) Urine Creatinine Crossmatch 05/06/16 05/06/16 05/06/16 04:23 05:30 05:37 WBC RBC Hgb Hct MCV MCH MCHC RDW Plt Count Lymph % (Auto) [place] % (Auto) Lymph # [place] # Baso # Seg Neutrophils % Seg Neuts % (Manual) Lymphocytes % (Manual) Monocytes % (Manual) Seg Neutrophils # Seg Neutrophils # Man Lymphocytes # (Manual) Monocytes # (Manual) Basophils # (Manual) Percent Retic PT INR APTT Heparin Anti-Xa Level 0.15 L POC ABG pH 7.511 H POC ABG pCO2 POC ABG pO2 Sodium Potassium Chloride Carbon Dioxide BUN Creatinine Glucose POC Glucose 168 H Calcium Phosphorus Iron TIBC Lactate Dehydrogenase Total Creatine Kinase NT-Pro-B Natriuret Pep Total Protein Albumin Rhbkt-9-Nwebzdfxk Itoro-5-Vemsihvwg Beta Globulins PEP Interpretation Cholesterol LDL Cholesterol Direct Vitamin B12 Urine WBC (Auto) Urine Creatinine Crossmatch 05/06/16 05/06/16 05/07/16 12:48 17:22 00:04 WBC RBC Hgb Hct MCV MCH MCHC RDW Plt Count Lymph % (Auto) [place] % (Auto) Lymph # [place] # Baso # Seg Neutrophils % Seg Neuts % (Manual) Lymphocytes % (Manual) Monocytes % (Manual) Seg Neutrophils # Seg Neutrophils # Man Lymphocytes # (Manual) Monocytes # (Manual) Basophils # (Manual) Percent Retic PT INR APTT Heparin Anti-Xa Level POC ABG pH POC ABG pCO2 POC ABG pO2 Sodium Potassium Chloride Carbon Dioxide BUN Creatinine Glucose POC Glucose 206 H 160 H 164 H Calcium Phosphorus Iron TIBC Lactate Dehydrogenase Total Creatine Kinase NT-Pro-B Natriuret Pep Total Protein Albumin Uvmuw-2-Yalosinia Liyto-4-Jfwdboiyy Beta Globulins PEP Interpretation Cholesterol LDL Cholesterol Direct Vitamin B12 Urine WBC (Auto) Urine Creatinine Crossmatch 05/07/16 05/07/16 05/07/16 04:02 05:50 11:30 WBC RBC Hgb Hct MCV MCH MCHC RDW Plt Count Lymph % (Auto) [place] % (Auto) Lymph # [place] # Baso # Seg Neutrophils % Seg Neuts % (Manual) Lymphocytes % (Manual) Monocytes % (Manual) Seg Neutrophils # Seg Neutrophils # Man Lymphocytes # (Manual) Monocytes # (Manual) Basophils # (Manual) Percent Retic PT INR APTT Heparin Anti-Xa Level 0.15 L POC ABG pH POC ABG pCO2 POC ABG pO2 Sodium Potassium Chloride Carbon Dioxide BUN Creatinine Glucose POC Glucose 177 H 240 H Calcium Phosphorus Iron TIBC Lactate Dehydrogenase Total Creatine Kinase NT-Pro-B Natriuret Pep Total Protein Albumin Bozoa-1-Caynqfcnj Qbnpo-4-Sjvyfpmri Beta Globulins PEP Interpretation Cholesterol LDL Cholesterol Direct Vitamin B12 Urine WBC (Auto) Urine Creatinine Crossmatch 05/07/16 05/07/16 05/07/16 12:46 17:57 23:54 WBC 20.8 H RBC 2.86 L Hgb 7.6 L Hct 23.3 L MCV 81 L MCH 26 L MCHC RDW 17.9 H Plt Count 559 H Lymph % (Auto) [place] % (Auto) Lymph # [place] # Baso # Seg Neutrophils % Seg Neuts % (Manual) Lymphocytes % (Manual) Monocytes % (Manual) Seg Neutrophils # Seg Neutrophils # Man Lymphocytes # (Manual) Monocytes # (Manual) Basophils # (Manual) Percent Retic PT INR APTT Heparin Anti-Xa Level POC ABG pH POC ABG pCO2 POC ABG pO2 Sodium Potassium Chloride Carbon Dioxide BUN Creatinine Glucose POC Glucose 279 H 201 H Calcium Phosphorus Iron TIBC Lactate Dehydrogenase Total Creatine Kinase NT-Pro-B Natriuret Pep Total Protein Albumin Ichmm-2-Oeqcvgsov Xpywy-6-Viaswsrgc Beta Globulins PEP Interpretation Cholesterol LDL Cholesterol Direct Vitamin B12 Urine WBC (Auto) Urine Creatinine Crossmatch 05/08/16 05/08/16 05/08/16 04:04 05:39 12:09 WBC RBC Hgb Hct MCV MCH MCHC RDW Plt Count Lymph % (Auto) [place] % (Auto) Lymph # [place] # Baso # Seg Neutrophils % Seg Neuts % (Manual) Lymphocytes % (Manual) Monocytes % (Manual) Seg Neutrophils # Seg Neutrophils # Man Lymphocytes # (Manual) Monocytes # (Manual) Basophils # (Manual) Percent Retic PT INR APTT Heparin Anti-Xa Level 0.20 L POC ABG pH POC ABG pCO2 POC ABG pO2 Sodium Potassium Chloride Carbon Dioxide BUN Creatinine Glucose POC Glucose 153 H 188 H Calcium Phosphorus Iron TIBC Lactate Dehydrogenase Total Creatine Kinase NT-Pro-B Natriuret Pep Total Protein Albumin Qqnki-7-Leevqqgbn Igafg-4-Ydzrcfpqd Beta Globulins PEP Interpretation Cholesterol LDL Cholesterol Direct Vitamin B12 Urine WBC (Auto) Urine Creatinine Crossmatch 05/08/16 05/08/16 05/08/16 17:44 17:49 18:51 WBC RBC Hgb Hct MCV MCH MCHC RDW Plt Count Lymph % (Auto) [place] % (Auto) Lymph # [place] # Baso # Seg Neutrophils % Seg Neuts % (Manual) Lymphocytes % (Manual) Monocytes % (Manual) Seg Neutrophils # Seg Neutrophils # Man Lymphocytes # (Manual) Monocytes # (Manual) Basophils # (Manual) Percent Retic PT INR APTT Heparin Anti-Xa Level POC ABG pH POC ABG pCO2 POC ABG pO2 Sodium Potassium Chloride Carbon Dioxide BUN Creatinine Glucose POC Glucose 56 L 61 L 135 H Calcium Phosphorus Iron TIBC Lactate Dehydrogenase Total Creatine Kinase NT-Pro-B Natriuret Pep Total Protein Albumin Fmeqn-4-Jkgtguasm Ivbbc-6-Kguhwpivr Beta Globulins PEP Interpretation Cholesterol LDL Cholesterol Direct Vitamin B12 Urine WBC (Auto) Urine Creatinine Crossmatch 05/09/16 05/09/16 05/09/16 00:14 04:07 05:18 WBC RBC Hgb Hct MCV MCH MCHC RDW Plt Count Lymph % (Auto) [place] % (Auto) Lymph # [place] # Baso # Seg Neutrophils % Seg Neuts % (Manual) Lymphocytes % (Manual) Monocytes % (Manual) Seg Neutrophils # Seg Neutrophils # Man Lymphocytes # (Manual) Monocytes # (Manual) Basophils # (Manual) Percent Retic PT INR APTT Heparin Anti-Xa Level 0.21 L POC ABG pH POC ABG pCO2 POC ABG pO2 Sodium Potassium Chloride Carbon Dioxide BUN Creatinine Glucose POC Glucose 151 H 215 H Calcium Phosphorus Iron TIBC Lactate Dehydrogenase Total Creatine Kinase NT-Pro-B Natriuret Pep Total Protein Albumin Icnuz-3-Svtojkoxj Kjiyo-0-Yjesrtnli Beta Globulins PEP Interpretation Cholesterol LDL Cholesterol Direct Vitamin B12 Urine WBC (Auto) Urine Creatinine Crossmatch 05/09/16 05/09/16 05/09/16 12:27 16:39 17:30 WBC RBC Hgb 6.4 L Hct 20.2 L MCV MCH MCHC RDW Plt Count Lymph % (Auto) [place] % (Auto) Lymph # [place] # Baso # Seg Neutrophils % Seg Neuts % (Manual) Lymphocytes % (Manual) Monocytes % (Manual) Seg Neutrophils # Seg Neutrophils # Man Lymphocytes # (Manual) Monocytes # (Manual) Basophils # (Manual) Percent Retic PT INR APTT Heparin Anti-Xa Level POC ABG pH POC ABG pCO2 POC ABG pO2 Sodium Potassium Chloride Carbon Dioxide BUN Creatinine Glucose POC Glucose 291 H 220 H Calcium Phosphorus Iron TIBC Lactate Dehydrogenase Total Creatine Kinase NT-Pro-B Natriuret Pep Total Protein Albumin Xcfgr-2-Edpstjasw Hqxui-9-Ylmnxpvmf Beta Globulins PEP Interpretation Cholesterol LDL Cholesterol Direct Vitamin B12 Urine WBC (Auto) Urine Creatinine Crossmatch 05/09/16 05/09/16 05/10/16 19:47 23:57 03:55 WBC 16.9 H RBC 3.20 L Hgb 8.6 L Hct 26.7 L D MCV 83 L MCH 27 L MCHC RDW 17.5 H Plt Count 488 H Lymph % (Auto) [place] % (Auto) Lymph # [place] # Baso # Seg Neutrophils % Seg Neuts % (Manual) 76.0 H Lymphocytes % (Manual) 9.0 L Monocytes % (Manual) 10.0 H Seg Neutrophils # Seg Neutrophils # Man 12.8 H Lymphocytes # (Manual) Monocytes # (Manual) 1.7 H Basophils # (Manual) Percent Retic PT INR APTT Heparin Anti-Xa Level POC ABG pH POC ABG pCO2 POC ABG pO2 Sodium Potassium Chloride Carbon Dioxide BUN Creatinine Glucose POC Glucose 217 H Calcium Phosphorus Iron TIBC Lactate Dehydrogenase Total Creatine Kinase NT-Pro-B Natriuret Pep Total Protein Albumin Zvasu-3-Hwiigwkrj Wfaln-7-Apnrevoij Beta Globulins PEP Interpretation Cholesterol LDL Cholesterol Direct Vitamin B12 Urine WBC (Auto) Urine Creatinine Crossmatch See Detail 05/10/16 05:05 WBC RBC Hgb Hct MCV MCH MCHC RDW Plt Count Lymph % (Auto) [place] % (Auto) Lymph # [place] # Baso # Seg Neutrophils % Seg Neuts % (Manual) Lymphocytes % (Manual) Monocytes % (Manual) Seg Neutrophils # Seg Neutrophils # Man Lymphocytes # (Manual) Monocytes # (Manual) Basophils # (Manual) Percent Retic PT INR APTT Heparin Anti-Xa Level POC ABG pH POC ABG pCO2 POC ABG pO2 Sodium Potassium Chloride Carbon Dioxide BUN Creatinine Glucose POC Glucose 182 H Calcium Phosphorus Iron TIBC Lactate Dehydrogenase Total Creatine Kinase NT-Pro-B Natriuret Pep Total Protein Albumin Tufmi-1-Ngyrxsbne Xijoa-4-Gnqqdbnbd Beta Globulins PEP Interpretation Cholesterol LDL Cholesterol Direct Vitamin B12 Urine WBC (Auto) Urine Creatinine Crossmatch Chest x-ray: report reviewed, image reviewed
--- NOTE | 2016-05-10 12:40 | Progress Note ---
Assessment and Plan Continue to keep HOB at 30-45 degrees elevation to decrease venous distention Continue to hold heparin and all anticoagulants for at least another 24 hours Monitor closely Subjective Date of service: 05/10/16 Patient Reports: Positive: other (No dressing change per nurses. No bleeding through dressing) Objective Vital Signs - 12hr 05/10/16 05/10/16 05/10/16 01:00 01:44 02:00 Temperature Pulse Rate 78 78 78 Pulse Rate [ Anterior Bilateral Throughout] Pulse Rate [ Apical] Pulse Rate [ Bilateral] Pulse Rate [ From Monitor] Respiratory 21 19 17 Rate Respiratory Rate [Anterior Bilateral Throughout] Respiratory Rate [Bilateral ] Blood Pressure 118/69 118/69 125/75 O2 Sat by Pulse 100 100 Oximetry 05/10/16 05/10/16 05/10/16 02:23 02:38 02:46 Temperature Pulse Rate 79 Pulse Rate [ Anterior Bilateral Throughout] Pulse Rate [ Apical] Pulse Rate [ 78 80 Bilateral] Pulse Rate [ From Monitor] Respiratory 15 Rate Respiratory Rate [Anterior Bilateral Throughout] Respiratory 18 18 Rate [Bilateral ] Blood Pressure 125/75 O2 Sat by Pulse 100 Oximetry 05/10/16 05/10/16 05/10/16 03:00 03:22 04:00 Temperature 98.7 F Pulse Rate 79 79 81 Pulse Rate [ Anterior Bilateral Throughout] Pulse Rate [ Apical] Pulse Rate [ Bilateral] Pulse Rate [ From Monitor] Respiratory 19 19 19 Rate Respiratory Rate [Anterior Bilateral Throughout] Respiratory Rate [Bilateral ] Blood Pressure 119/71 119/71 132/78 O2 Sat by Pulse 100 100 Oximetry 05/10/16 05/10/16 05/10/16 04:05 04:22 05:00 Temperature Pulse Rate 80 81 88 Pulse Rate [ Anterior Bilateral Throughout] Pulse Rate [ Apical] Pulse Rate [ Bilateral] Pulse Rate [ From Monitor] Respiratory 21 22 Rate Respiratory Rate [Anterior Bilateral Throughout] Respiratory Rate [Bilateral ] Blood Pressure 132/78 119/71 141/81 O2 Sat by Pulse 100 100 Oximetry 05/10/16 05/10/16 05/10/16 06:00 06:02 07:00 Temperature Pulse Rate 84 89 84 Pulse Rate [ Anterior Bilateral Throughout] Pulse Rate [ Apical] Pulse Rate [ Bilateral] Pulse Rate [ From Monitor] Respiratory 20 26 H 20 Rate Respiratory Rate [Anterior Bilateral Throughout] Respiratory Rate [Bilateral ] Blood Pressure 129/78 129/78 136/81 O2 Sat by Pulse 100 100 Oximetry 05/10/16 05/10/16 05/10/16 07:44 08:00 09:00 Temperature 98.8 F Pulse Rate 86 89 Pulse Rate [ Anterior Bilateral Throughout] Pulse Rate [ 80 Apical] Pulse Rate [ Bilateral] Pulse Rate [ 80 From Monitor] Respiratory 22 20 Rate Respiratory Rate [Anterior Bilateral Throughout] Respiratory Rate [Bilateral ] Blood Pressure 135/83 144/85 O2 Sat by Pulse 100 Oximetry 05/10/16 05/10/16 05/10/16 09:25 09:26 09:28 Temperature Pulse Rate 88 88 88 Pulse Rate [ Anterior Bilateral Throughout] Pulse Rate [ Apical] Pulse Rate [ Bilateral] Pulse Rate [ From Monitor] Respiratory 20 Rate Respiratory Rate [Anterior Bilateral Throughout] Respiratory Rate [Bilateral ] Blood Pressure 144/85 144/85 119/71 O2 Sat by Pulse 100 Oximetry 05/10/16 05/10/16 05/10/16 10:00 10:08 10:10 Temperature Pulse Rate 82 78 Pulse Rate [ 77 Anterior Bilateral Throughout] Pulse Rate [ Apical] Pulse Rate [ Bilateral] Pulse Rate [ From Monitor] Respiratory 19 24 Rate Respiratory 12 Rate [Anterior Bilateral Throughout] Respiratory Rate [Bilateral ] Blood Pressure 123/75 123/75 O2 Sat by Pulse Oximetry 05/10/16 05/10/16 05/10/16 10:15 10:20 10:24 Temperature Pulse Rate 79 Pulse Rate [ 77 Anterior Bilateral Throughout] Pulse Rate [ Apical] Pulse Rate [ 77 Bilateral] Pulse Rate [ From Monitor] Respiratory 27 H Rate Respiratory 12 Rate [Anterior Bilateral Throughout] Respiratory 12 Rate [Bilateral ] Blood Pressure 123/75 O2 Sat by Pulse 99 Oximetry 05/10/16 05/10/16 05/10/16 11:00 11:28 11:42 Temperature Pulse Rate 80 81 82 Pulse Rate [ Anterior Bilateral Throughout] Pulse Rate [ Apical] Pulse Rate [ Bilateral] Pulse Rate [ From Monitor] Respiratory 28 H 27 H 25 H Rate Respiratory Rate [Anterior Bilateral Throughout] Respiratory Rate [Bilateral ] Blood Pressure 127/78 123/75 123/75 O2 Sat by Pulse 100 100 Oximetry 05/10/16 05/10/16 05/10/16 11:45 12:00 12:22 Temperature 99.3 F Pulse Rate 83 84 Pulse Rate [ Anterior Bilateral Throughout] Pulse Rate [ 82 Apical] Pulse Rate [ Bilateral] Pulse Rate [ 82 From Monitor] Respiratory 26 H 27 H 11 L Rate Respiratory Rate [Anterior Bilateral Throughout] Respiratory Rate [Bilateral ] Blood Pressure 123/78 123/78 O2 Sat by Pulse 96 97 Oximetry - Neck trachea midline, no venous distension, other (Dressing removed and old clot cleaned up. No signs of active bleeding. ) - Labs 05/10/16 03:55 05/05/16 04:13
[2016-05-10 13:13] LABS: Hematocrit 28.2 % (35.5-45.6); Hemoglobin 9.1 gm/dl (11.8-15.2)
[2016-05-10 13:18] LABS: INR 1.14 (0.87-1.13)
[2016-05-10 13:19] LABS: Partial Thromboplastin Time 33.7 Sec. (24.2-36.6)
--- NOTE | 2016-05-10 14:08 | Progress Note ---
Assessment and Plan Assessment and plan: 1. Acute respiratory failure. Continue mechanical ventilation per pulmonary. Tracheostomy on 04/29/16 with acute bleeding from trach site 05/09/16 improved with local compression; continue to hold heparin and aspirin; Continue CPAP trials as per pulmonary; 2. Persistent fever due sepsis from enterococcus fecalis UTI- temp is better and now afebrile; cont IV zosyn 3. Acute CVA -right cerebellum; subacute infarct in the right cerebellar hemisphere with associated edema and mass effect as previously described. Patient also with multiple areas of acute infarct in the left occipital and frontal lobes that are most likely embolic. LIZZIE done- No thrombus but decreased flow- cotn coumadin and heparin as bridge 4. Encephalopathy. EEG normal. Etiology likely secondary to CVA +/- hypertension. supportive care 5. Accelerated hypertension- now BP controlled; cont antihypertensive medications 6. CAD-stable; contn meds 7. . Seizures-continue Keppra. EEG normal. 8. Type 2 diabetes mellitus-. Glycemic control; cotn current insulin regime. 9. History of aortic dissection status post repair. 10. Oropharyngeal dysphagia. Patient failed swallow evaluation. Status post PEG placement on 04/17. Cont PEG feeds 11. DVT prophylaxis-on heparin drip. 12. GI prophylaxis-Pepcid CCT exclusive of all other billable procedures 33 minutes History Interval history: f/u respiratory failure; hypernatremia; acute renal failure Patient seen at the bedside; vented- tach in place; had bleeding from trach yesterday and was transfused; bleeding was controlled with local pressure Hospitalist Physical - Constitutional Vitals: Temp Pulse Resp BP Pulse Ox 99.3 F 80 21 130/78 97 05/10/16 12:00 05/10/16 13:00 05/10/16 13:00 05/10/16 13:00 05/10/16 13:00 General appearance: Present: no acute distress, other (tracheostomy) - EENT Eyes: Present: PERRL, EOM intact. Absent: scleral icterus, conjunctival injection ENT: hearing intact, clear oral mucosa, no oropharyngeal erythema, no poor dentition - Neck Neck: Present: supple, normal ROM. Absent: enlarged thyroid, masses or JVD - Respiratory Respiratory effort: other (vented via trach ) Respiratory: bilateral: diminished, negative: rales, rhonchi, wheezing - Cardiovascular Rhythm: regular Heart Sounds: Present: S1 & S2. Absent: gallop - Extremities Extremities: no ischemia, pulses intact, pulses symmetrical, No edema Peripheral Pulses: within normal limits - Abdominal General gastrointestinal: soft, non-tender, non-distended, normal bowel sounds - Psychiatric Psychiatric: other (unable to assess) - Neurologic Neurologic: other (eyes open to tactile stimulus; he does not obey commands) Results - Labs CBC & Chem 7: 05/10/16 12:54 05/05/16 04:13 Labs: Laboratory Last Values WBC 16.9 K/mm3 (4.5-11.0) H 05/10/16 03:55 RBC 3.20 M/mm3 (3.65-5.03) L 05/10/16 03:55 Hgb 9.1 gm/dl (11.8-15.2) L 05/10/16 12:54 Hct 28.2 % (35.5-45.6) L 05/10/16 12:54 MCV 83 fl (84-94) L 05/10/16 03:55 MCH 27 pg (28-32) L 05/10/16 03:55 MCHC 32 % (32-34) 05/10/16 03:55 RDW 17.5 % (13.2-15.2) H 05/10/16 03:55 Plt Count 488 K/mm3 (140-440) H 05/10/16 03:55 Lymph % (Auto) 8.0 % (13.4-35.0) L 05/02/16 04:48 [place] % (Auto) 13.6 % (0.0-7.3) H 05/02/16 04:48 Eos % (Auto) 0.2 % (0.0-4.3) 05/02/16 04:48 Baso % (Auto) 0.7 % (0.0-1.8) 05/02/16 04:48 Lymph # 1.4 K/mm3 (1.2-5.4) 05/02/16 04:48 [place] # 2.3 K/mm3 (0.0-0.8) H 05/02/16 04:48 Eos # 0.0 K/mm3 (0.0-0.4) 05/02/16 04:48 Baso # 0.1 K/mm3 (0.0-0.1) 05/02/16 04:48 Add Manual Diff Complete 05/10/16 03:55 Total Counted 100 05/10/16 03:55 Seg Neutrophils % 77.5 % (40.0-70.0) H 05/02/16 04:48 Seg Neuts % (Manual) 76.0 % (40.0-70.0) H 05/10/16 03:55 Band Neutrophils % 5.0 % 05/10/16 03:55 Lymphocytes % (Manual) 9.0 % (13.4-35.0) L 05/10/16 03:55 Reactive Lymphs % (Man) 0 % 05/10/16 03:55 Monocytes % (Manual) 10.0 % (0.0-7.3) H 05/10/16 03:55 Eosinophils % (Manual) 0 % (0.0-4.3) 05/10/16 03:55 Basophils % (Manual) 0 % (0.0-1.8) 05/10/16 03:55 Metamyelocytes % 0 % 05/10/16 03:55 Myelocytes % 0 % 05/10/16 03:55 Promyelocytes % 0 % 05/10/16 03:55 Blast Cells % 0 % 05/10/16 03:55 Nucleated RBC % Not Reportable 05/10/16 03:55 Seg Neutrophils # 13.4 K/mm3 (1.8-7.7) H 05/02/16 04:48 Seg Neutrophils # Man 12.8 K/mm3 (1.8-7.7) H 05/10/16 03:55 Band Neutrophils # 0.8 K/mm3 05/10/16 03:55 Lymphocytes # (Manual) 1.5 K/mm3 (1.2-5.4) 05/10/16 03:55 Abs React Lymphs (Man) 0.0 K/mm3 05/10/16 03:55 Monocytes # (Manual) 1.7 K/mm3 (0.0-0.8) H 05/10/16 03:55 Eosinophils # (Manual) 0.0 K/mm3 (0.0-0.4) 05/10/16 03:55 Basophils # (Manual) 0.0 K/mm3 (0.0-0.1) 05/10/16 03:55 Metamyelocytes # 0.0 K/mm3 05/10/16 03:55 Myelocytes # 0.0 K/mm3 05/10/16 03:55 Promyelocytes # 0.0 K/mm3 05/10/16 03:55 Blast Cells # 0.0 K/mm3 05/10/16 03:55 WBC Morphology Not Reportable 05/10/16 03:55 Hypersegmented Neuts Not Reportable 05/10/16 03:55 Hyposegmented Neuts Not Reportable 05/10/16 03:55 Hypogranular Neuts Not Reportable 05/10/16 03:55 Smudge Cells Not Reportable 05/10/16 03:55 Toxic Granulation Not Reportable 05/10/16 03:55 Toxic Vacuolation Not Reportable 05/10/16 03:55 Dohle Bodies Not Reportable 05/10/16 03:55 Pelger-Huet Anomaly Not Reportable 05/10/16 03:55 Corina Rods Not Reportable 05/10/16 03:55 Platelet Estimate Consistent w auto 05/10/16 03:55 Clumped Platelets Not Reportable 05/10/16 03:55 Plt Clumps, EDTA Not Reportable 05/10/16 03:55 Large Platelets Not Reportable 05/10/16 03:55 Giant Platelets Not Reportable 05/10/16 03:55 Platelet Satelliting Not Reportable 05/10/16 03:55 Plt Morphology Comment Not Reportable 05/10/16 03:55 RBC Morphology Not Reportable 05/10/16 03:55 Dimorphic RBCs Not Reportable 05/10/16 03:55 Polychromasia Rare 05/10/16 03:55 Hypochromasia Rare 05/10/16 03:55 Poikilocytosis Not Reportable 05/10/16 03:55 Anisocytosis 1+ 05/10/16 03:55 Microcytosis Not Reportable 05/10/16 03:55 Macrocytosis Not Reportable 05/10/16 03:55 Spherocytes Not Reportable 05/10/16 03:55 Pappenheimer Bodies Not Reportable 05/10/16 03:55 Sickle Cells Not Reportable 05/10/16 03:55 Target Cells Not Reportable 05/10/16 03:55 Tear Drop Cells Not Reportable 05/10/16 03:55 Ovalocytes Not Reportable 05/10/16 03:55 Helmet Cells Not Reportable 05/10/16 03:55 [place] Bodies Not Reportable 05/10/16 03:55 [place] Rings Not Reportable 05/10/16 03:55 [place] Cells Not Reportable 05/10/16 03:55 Bite Cells Not Reportable 05/10/16 03:55 Crenated Cell Not Reportable 05/10/16 03:55 Elliptocytes Not Reportable 05/10/16 03:55 Acanthocytes (Spur) Not Reportable 05/10/16 03:55 Rouleaux Not Reportable 05/10/16 03:55 Hemoglobin C Crystals Not Reportable 05/10/16 03:55 Schistocytes Not Reportable 05/10/16 03:55 Malaria parasites Not Reportable 05/10/16 03:55 Percent Retic 3.68 % (0.78-2.58) H 04/29/16 10:16 [place] Bodies Not Reportable 05/10/16 03:55 Hem Pathologist Commnt No 05/10/16 03:55 PT 14.5 Sec. (12.2-14.9) 05/10/16 12:54 INR 1.14 (0.87-1.13) H 05/10/16 12:54 APTT 33.7 Sec. (24.2-36.6) 05/10/16 12:54 Heparin Anti-Xa Level 0.21 U.I./ml (0.3-0.7) L 05/09/16 04:07 POC ABG pH 7.511 (7.35-7.45) H 05/06/16 05:30 POC ABG pCO2 36.2 (35-45) 05/06/16 05:30 POC ABG pO2 92 (80-105) 05/06/16 05:30 POC ABG HCO3 28.9 05/06/16 05:30 POC ABG Total CO2 30 05/06/16 05:30 POC ABG O2 Sat 98 05/06/16 05:30 POC ABG Base Excess 6 05/06/16 05:30 VBG pH 7.418 (7.320-7.420) 03/24/16 14:00 FiO2 25 % 05/06/16 05:30 Sodium 146 mmol/L (137-145) H 05/05/16 04:13 Potassium 3.7 mmol/L (3.6-5.0) 05/05/16 04:13 Chloride 106.0 mmol/L (98-107) 05/05/16 04:13 Carbon Dioxide 27 mmol/L (22-30) 05/05/16 04:13 Anion Gap 17 mmol/L 05/05/16 04:13 BUN 30 mg/dL (9-20) H 05/05/16 04:13 Creatinine 0.7 mg/dL (0.8-1.5) L 05/05/16 04:13 Estimated GFR > 60 ml/min 05/05/16 04:13 BUN/Creatinine Ratio 42.85 % 05/05/16 04:13 Glucose 250 mg/dL (75-100) H 05/05/16 04:13 POC Glucose 237 (70-105) H 05/10/16 11:49 Hemoglobin A1c 9.6 % (4-6) H 03/24/16 14:00 Lactic Acid 1.6 mmol/L (0.7-2.0) 04/17/16 12:17 Calcium 8.1 mg/dL (8.4-10.2) L 05/05/16 04:13 Phosphorus 2.3 mg/dL (2.5-4.5) L D 03/30/16 04:00 Magnesium 1.9 mg/dL (1.7-2.3) 03/30/16 04:00 Iron 10 ug/dL (49-181) L 04/29/16 10:16 TIBC 138 mcg/dL (250-450) L 04/29/16 10:16 Ferritin 336.4 ng/mL (13.0-400.0) 04/29/16 10:16 Total Bilirubin < 0.2 mg/dL (0.1-1.2) 04/27/16 04:21 AST 18 units/L (5-40) 04/27/16 04:21 ALT 39 units/L (7-56) 04/27/16 04:21 Alkaline Phosphatase 103 units/L (35-129) 04/27/16 04:21 Lactate Dehydrogenase 204 units/L (91-180) H 04/29/16 10:16 Total Creatine Kinase 356 units/L (55-170) H 03/28/16 13:29 Troponin T < 0.010 ng/mL (0.00-0.029) 03/28/16 13:29 NT-Pro-B Natriuret Pep 897.9 pg/mL (0-900) 04/03/16 04:10 Serum Total Protein 7.1 g/dL (6.1-8.1) 03/25/16 13:00 Total Protein 6.0 g/dL (6.3-8.2) L 04/27/16 04:21 Albumin 2.0 g/dL (3.9-5) L 04/27/16 04:21 Albumin/Globulin Ratio 0.5 % 04/27/16 04:21 Pblus-2-Tpnxriwyn See scanned report 03/31/16 12:20 Lytet-8-Dcftliavf See scanned report 03/31/16 12:20 Beta Globulins See scanned report 03/31/16 12:20 Oqpj-0-Bagmmdrkfufrf 2.46 mg/L (<=2.51) 03/25/16 13:00 Gamma Globulins See scanned report 03/31/16 12:20 Abnorm Protein Band 1 see below (()) 03/25/16 13:00 PEP Interpretation See scanned report 03/31/16 12:20 Triglycerides 88 mg/dL (2-149) 03/24/16 17:58 Cholesterol 221 mg/dL (50-199) H 03/24/16 17:58 LDL Cholesterol Direct 146 mg/dL (50-130) H 03/24/16 17:58 HDL Cholesterol 58 mg/dL (40-59) 03/24/16 17:58 Cholesterol/HDL Ratio 3.81 % 03/24/16 17:58 Vitamin B12 1005 pg/mL (211-911) H 04/29/16 10:16 Folate 12.78 ng/mL (7.3-26.0) 04/29/16 10:16 Urine Color Yellow (Yellow) 05/04/16 10:20 Urine Turbidity Cloudy (Clear) 05/04/16 10:20 Urine pH 5.0 (5.0-7.0) 05/04/16 10:20 Ur Specific [place] 1.017 (1.003-1.030) 05/04/16 10:20 Urine Protein 100 mg/dl mg/dL (Negative) 05/04/16 10:20 Urine Glucose (UA) >=500 mg/dL (Negative) 05/04/16 10:20 Urine Ketones Neg mg/dL (Negative) 05/04/16 10:20 Urine Blood Sm (Negative) 05/04/16 10:20 Urine Nitrite Neg (Negative) 05/04/16 10:20 Urine Bilirubin Neg (Negative) 05/04/16 10:20 Urine Urobilinogen 2.0 mg/dL (<2.0) 05/04/16 10:20 Ur Leukocyte Esterase Lg (Negative) 05/04/16 10:20 Urine WBC (Auto) > 182.0 /HPF (0.0-6.0) H 05/04/16 10:20 Urine RBC (Auto) 13.0 /HPF (0.0-6.0) 05/04/16 10:20 U Epithel Cells (Auto) < 1.0 /HPF (0-13.0) 05/04/16 10:20 Urine Bacteria (Auto) 1+ /HPF (Negative) 05/04/16 10:20 Urine WBC Clumps 3+ /HPF 05/04/16 10:20 Hyaline Casts 1 /LPF 03/24/16 14:27 Urine Mucus Few /HPF 05/04/16 10:20 Urine Yeast (Budding) 1+ /HPF 05/04/16 10:20 Ur Random Creatinine See scanned report 03/31/16 12:20 U Random Total Protein See scanned report 03/31/16 12:20 Urine Creatinine 85.5 mg/dL (0.1-20.0) H 04/20/16 11:50 Protein/Creatinin Ratio See scanned report 03/31/16 12:20 Urine Sodium 17 mEq/L 04/20/16 11:50 U Abnormal Prot Band 1 See scanned report 03/31/16 12:20 U Abnormal Prot Band 2 See scanned report 03/31/16 12:20 U Abnormal Prot Band 3 See scanned report 03/31/16 12:20 Ketones 1.0 mg/dL (0.2-2.8) 03/24/16 14:00 Blood Type A POSITIVE 05/09/16 19:47 Antibody Screen Negative 05/09/16 19:47 Crossmatch See Detail 05/09/16 19:47 Microbiology 05/06/16 13:10 Central Venous Line Blood Culture - Preliminary NO GROWTH AFTER 4 DAYS 05/06/16 12:43 Peripheral/Venous Blood Culture - Preliminary NO GROWTH AFTER 4 DAYS 05/04/16 09:36 Peripheral/Venous Blood Culture - Final NO GROWTH AFTER 5 DAYS 05/04/16 09:38 Central Venous Line Blood Culture - Final NO GROWTH AFTER 5 DAYS 05/04/16 10:20 Urine,Catheterized - Indwelling Catheter Urine Culture - Final Enterococcus Faecalis Thelma Albicans 04/16/16 18:30 Tracheal Aspirate Sputum Culture - Final Pseudomonas Aeruginosa 03/24/16 14:00 Peripheral/Venous Blood Culture - Final NO GROWTH AFTER 5 DAYS 03/24/16 14:13 Peripheral/Venous Blood Culture - Final NO GROWTH AFTER 5 DAYS 03/27/16 Unknown Tracheal Aspirate Sputum Culture - Final 03/26/16 18:00 Tracheal Aspirate Sputum Culture - Final 03/24/16 14:27 Urine,Catheterized - Indwelling Catheter Urine Culture - Final Beta Hemolytic Strep Group B
[2016-05-10] MEDS: ZOSYN/NS 4.5GM/100ML 100 ML IV SCH ×3 (14:41→23:13)
--- NOTE | 2016-05-10 16:05 | Progress Note ---
Addendum entered and electronically signed by MASOOD HAWLEY MD 05/10/16 19:17 : Conservative cardiac management, continue supportive care. Original Note: Assessment and Plan Acute respiratory failure requiring re intubation s/p trach no evidence of PE by V\Q scan normal ventricular and atria size, EF 65% on echo this admission. Acute CVA LIZZIE - very dense echo contrast noted in the thoracic aorta consistent with low flow state, severe concentric LVH, normal functioning bioprosthetic aortic valve. Coumadin to restart today Acute drop in anemia requiring blood transfusion IV heparin held. Coumadin to restart today. Abnormal ECG no significant CAD by [facility] 08/2015 Hx of aortic dissection s/p repair Hx of bioprosthetic aortic valve replacement Hypertension Plan: Conservative cardiac management Subjective Date of service: 05/10/16 Principal diagnosis: CVA, acute respiratory failure Interval history: Cardiology recalled for hypotension, sepsis and elevated troponin. Patient is resting in bed with vent to trach. BP currently 117/73. Objective Vital Signs Temp Pulse Pulse Pulse Pulse Pulse Resp 05/10/16 15:53 99.6 F 05/10/16 15:50 77 26 H 05/10/16 15:45 77 77 26 H 05/10/16 15:28 76 22 05/10/16 15:00 78 20 05/10/16 14:46 84 22 05/10/16 14:34 89 05/10/16 14:32 87 05/10/16 14:25 87 05/10/16 14:15 24 05/10/16 14:00 87 22 05/10/16 13:10 84 23 05/10/16 13:00 80 21 05/10/16 12:22 84 11 L 05/10/16 12:16 84 24 05/10/16 12:00 99.3 F 83 27 H 05/10/16 11:45 82 82 26 H 05/10/16 11:42 82 25 H 05/10/16 11:28 81 27 H 05/10/16 11:00 80 28 H 05/10/16 10:24 79 05/10/16 10:20 77 77 05/10/16 10:15 27 H 05/10/16 10:10 77 05/10/16 10:08 78 24 05/10/16 10:00 82 19 05/10/16 09:28 88 20 05/10/16 09:26 88 05/10/16 09:25 88 05/10/16 09:00 89 20 05/10/16 08:00 86 80 80 22 05/10/16 07:44 98.8 F 05/10/16 07:00 84 20 05/10/16 06:02 89 26 H 05/10/16 06:00 84 20 05/10/16 05:00 88 22 05/10/16 04:22 81 21 05/10/16 04:05 80 05/10/16 04:00 98.7 F 81 19 05/10/16 03:22 79 19 05/10/16 03:00 79 19 05/10/16 02:46 79 15 05/10/16 02:38 80 05/10/16 02:23 78 05/10/16 02:00 78 17 05/10/16 01:44 78 19 05/10/16 01:00 78 21 05/10/16 00:00 99.7 F H 77 79 79 22 05/09/16 23:49 78 05/09/16 23:45 05/09/16 23:02 78 13 05/09/16 23:00 79 22 05/09/16 22:54 79 19 05/09/16 22:00 86 22 05/09/16 21:51 92 H 05/09/16 21:50 93 H 05/09/16 21:12 95 H 24 05/09/16 21:00 94 H 20 05/09/16 20:40 94 H 14 05/09/16 20:00 98.3 F 89 89 89 16 05/09/16 19:42 93 H 05/09/16 19:27 87 05/09/16 19:22 88 05/09/16 19:00 88 21 05/09/16 18:32 86 19 05/09/16 18:00 91 H 22 05/09/16 17:00 89 21 05/09/16 16:53 89 21 05/09/16 16:30 90 90 21 Resp Resp BP Pulse Ox Pulse Ox 05/10/16 15:53 05/10/16 15:50 117/73 99 05/10/16 15:45 100 05/10/16 15:28 117/73 99 05/10/16 15:00 117/73 97 05/10/16 14:46 135/82 98 05/10/16 14:34 135/82 05/10/16 14:32 12 05/10/16 14:25 23 05/10/16 14:15 99 05/10/16 14:00 135/82 05/10/16 13:10 130/78 98 05/10/16 13:00 130/78 97 05/10/16 12:22 123/78 05/10/16 12:16 123/78 96 05/10/16 12:00 123/78 97 05/10/16 11:45 96 05/10/16 11:42 123/75 100 05/10/16 11:28 123/75 100 05/10/16 11:00 127/78 05/10/16 10:24 123/75 99 05/10/16 10:20 12 12 05/10/16 10:15 05/10/16 10:10 12 05/10/16 10:08 123/75 05/10/16 10:00 123/75 05/10/16 09:28 119/71 100 05/10/16 09:26 144/85 05/10/16 09:25 144/85 05/10/16 09:00 144/85 05/10/16 08:00 135/83 100 05/10/16 07:44 05/10/16 07:00 136/81 05/10/16 06:02 129/78 100 05/10/16 06:00 129/78 100 05/10/16 05:00 141/81 100 05/10/16 04:22 119/71 05/10/16 04:05 132/78 100 05/10/16 04:00 132/78 05/10/16 03:22 119/71 100 05/10/16 03:00 119/71 100 05/10/16 02:46 125/75 100 05/10/16 02:38 18 05/10/16 02:23 18 05/10/16 02:00 125/75 05/10/16 01:44 118/69 100 05/10/16 01:00 118/69 100 05/10/16 00:00 112/66 100 05/09/16 23:49 101/63 100 05/09/16 23:45 100 05/09/16 23:02 101/63 100 05/09/16 23:00 101/63 100 05/09/16 22:54 119/63 100 05/09/16 22:00 116/70 05/09/16 21:51 124/75 05/09/16 21:50 124/75 05/09/16 21:12 124/75 100 05/09/16 21:00 124/75 100 05/09/16 20:40 115/71 100 05/09/16 20:00 120/72 100 05/09/16 19:42 24 05/09/16 19:27 20 05/09/16 19:22 120/72 100 05/09/16 19:00 120/72 100 05/09/16 18:32 114/68 100 05/09/16 18:00 124/73 100 05/09/16 17:00 124/73 99 05/09/16 16:53 140/84 100 05/09/16 16:30 100 - Physical Examination General: Other (vent to trach) Cardiac: Positive: Reg Rate and Rhythm Extremities: Absent: edema - Labs and Meds Coagulation 05/10/16 Range/Units 12:54 PT 14.5 (12.2-14.9) Sec. INR 1.14 H (0.87-1.13) APTT 33.7 (24.2-36.6) Sec. CBC 05/09/16 05/10/16 05/10/16 Range/Units 17:30 03:55 12:54 WBC 16.9 H (4.5-11.0) K/mm3 RBC 3.20 L (3.65-5.03) M/mm3 Hgb 6.4 L 8.6 L 9.1 L (11.8-15.2) gm/dl Hct 20.2 L 26.7 L D 28.2 L (35.5-45.6) % Plt Count 488 H (140-440) K/mm3 - Imaging and Cardiology EKG: image reviewed
[2016-05-11] MEDS: DUONEB 0.5 MG-3 MG/3 ML SOLN IH SCH ×4 (01:29→19:37)
[2016-05-11] MEDS: NOVOLOG SUB-Q SCH ×3 (05:19→17:30)
[2016-05-11] MEDS: ZOSYN/NS 4.5GM/100ML 100 ML IV SCH ×3 (05:20→17:33)
[2016-05-11 05:22] LABS: Basophils % (Auto) 0.3 % (0.0-1.8); Eosinophils % (Auto) 1.2 % (0.0-4.3); Hematocrit 27.7 % (35.5-45.6); Hemoglobin 8.8 gm/dl (11.8-15.2); Mean Corpuscular HGB Conc 32 % (32-34); Mean Corpuscular Hemoglobin 27 pg (28-32); Mean Corpuscular Volume 85 fl (84-94); Platelet Count 475 K/mm3 (140-440); Red Blood Count 3.27 M/mm3 (3.65-5.03); Red Cell Distribution Width 17.9 % (13.2-15.2); White Blood Count 16.1 K/mm3 (4.5-11.0)
[2016-05-11 05:33] LABS: BUN/Creatinine Ratio 38.33; Blood Urea Nitrogen 23 mg/dL (9-20); Carbon Dioxide 27 mmol/L (22-30); Chloride 114.2 mmol/L (98-107); Glucose 166 mg/dL (75-100); Magnesium 2.3 mg/dL (1.7-2.3); Phosphorous 3.1 mg/dL (2.5-4.5); Potassium 4.1 mmol/L (3.6-5.0); Sodium 152 mmol/L (137-145)
[2016-05-11 05:40] LABS: Anion Gap 15 mmol/L
[2016-05-11] MEDS: NORMODYNE PO SCH ×3 (08:24→21:13)
--- NOTE | 2016-05-11 08:35 | XRay Report ---
AP chest History: Acute respiratory failure. Findings: No significant change is appreciated since 05/04/16. Tracheostomy remains in the same position. Borderline heart size and clear lungs are unchanged. No pleural effusion or pneumothorax. Impression: No acute cardiopulmonary process.
[2016-05-11] MEDS: CORDARONE PO SCH (09:39)
[2016-05-11] MEDS: KEPPRA PO SCH ×2 (09:39→21:15)
[2016-05-11] MEDS: NORVASC PO SCH (09:40)
[2016-05-11] MEDS: ZESTRIL PO SCH ×2 (09:40→21:17)
[2016-05-11] MEDS: PEPCID PO SCH ×2 (09:40→21:16)
[2016-05-11] MEDS: LEVEMIR SUB-Q SCH (09:41)
--- NOTE | 2016-05-11 13:31 | Progress Note ---
Assessment and Plan Assessment and plan: 1. Acute respiratory failure. Patient reintubated on 04/17/16. Continue mechanical ventilation per pulmonary. Tracheostomy on 04/29/16. Continue CPAP trials 2. Acute CVA. CT scan revealed acute ischemic infarct in the right cerebellum. MRI reveals subacute infarct in the right cerebellar hemisphere with associated edema and mass effect as previously described. Patient also with multiple areas of acute infarct in the left occipital and frontal lobes that are most likely embolic. LIZZIE done- No thrombus but decreased flow. Cardiology recommends anticoagulation with Coumadin. 3. Hypotension. Resolved. Patient currently off pressors of Levophed. Echocardiogram revealed EF of 50-55%. 4. Encephalopathy. EEG normal. Etiology likely secondary to CVA +/- hypertension. 5. Group B strep UTI-treated 6. Accelerated hypertension. Continue antihypertensive medications 7. CAD-stable 8. Seizures-continue Keppra. EEG normal. 9. Type 2 diabetes mellitus. Glycemic control. 10. History of aortic dissection status post repair. 11. History of prosthetic aortic valve replacement. Echo with normal function on 08/2015. 12. DVT prophylaxis-on heparin drip. 13. GI prophylaxis-Pepcid 14. Oropharyngeal dysphagia. Patient failed swallow evaluation. Status post PEG placement on 04/17. 15. Anemia. Etiology is unknown. Check iron studies and Hemoccult of stool. Type and cross and transfuse 2 units. The high probability of a clinically significant, sudden or life threatening deterioration of the [respiratory and neurological] system(s) required my full and direct attention, intervention and personal management. The aggregate critical care time was [31] minutes. This time is in addition to time spent performing reported procedures but includes the following: [x] Data Review and interpretation [x] Patient assessment and monitoring of vital signs [x] Documentation [x] Medication orders and management History Interval history: 60 years old -[place] male with nonobstructive CAD per recent CAD, hypertension, hyperlipidemia, bioprosthetic aortic valve replacement, chronic kidney disease, diabetes and seizure disorder who was initially admitted for metabolic encephalopathy with hypernatremia. Patient developed respiratory failure during this hospitalization on 03/27 and was intubated placed on mechanical ventilation. Patient was later extubated during his hospitalization but was reintubated on the evening of 04/16/16. Patient now remains intubated on mechanical ventilation. Patient is also status post PEG tube placement on . Patient remains on mechanical ventilation. Patient status post tracheostomy on 04/29/16. Hospitalist Physical - Constitutional Vitals: Temp Pulse Resp BP Pulse Ox 98.2 F 788 H 18 103/69 100 05/11/16 12:16 05/11/16 13:12 05/11/16 13:12 05/11/16 12:00 05/11/16 11:51 General appearance: Present: no acute distress, other (tracheostomy) - EENT Eyes: Present: PERRL, EOM intact ENT: hearing intact, clear oral mucosa, dentition normal - Neck Neck: Present: supple, normal ROM - Respiratory Respiratory effort: normal Respiratory: bilateral: diminished, rhonchi - Cardiovascular Rhythm: regular Heart Sounds: Present: S1 & S2. Absent: gallop, rub - Extremities Extremities: no ischemia, No edema, Full ROM - Abdominal General gastrointestinal: soft, non-tender, non-distended, normal bowel sounds - Integumentary Integumentary: Present: clear, warm, dry - Neurologic Neurologic: CNII-XII intact, moves all extremities Results - Labs CBC & Chem 7: 05/11/16 04:16 05/11/16 04:16 Labs: Laboratory Last Values WBC 16.1 K/mm3 (4.5-11.0) H 05/11/16 04:16 RBC 3.27 M/mm3 (3.65-5.03) L 05/11/16 04:16 Hgb 8.8 gm/dl (11.8-15.2) L 05/11/16 04:16 Hct 27.7 % (35.5-45.6) L 05/11/16 04:16 MCV 85 fl (84-94) 05/11/16 04:16 MCH 27 pg (28-32) L 05/11/16 04:16 MCHC 32 % (32-34) 05/11/16 04:16 RDW 17.9 % (13.2-15.2) H 05/11/16 04:16 Plt Count 475 K/mm3 (140-440) H 05/11/16 04:16 Lymph % (Auto) 8.9 % (13.4-35.0) L 05/11/16 04:16 [place] % (Auto) 8.0 % (0.0-7.3) H 05/11/16 04:16 Eos % (Auto) 1.2 % (0.0-4.3) 05/11/16 04:16 Baso % (Auto) 0.3 % (0.0-1.8) 05/11/16 04:16 Lymph # 1.4 K/mm3 (1.2-5.4) 05/11/16 04:16 [place] # 1.3 K/mm3 (0.0-0.8) H 05/11/16 04:16 Eos # 0.2 K/mm3 (0.0-0.4) 05/11/16 04:16 Baso # 0.1 K/mm3 (0.0-0.1) 05/11/16 04:16 Add Manual Diff Complete 05/10/16 03:55 Total Counted 100 05/10/16 03:55 Seg Neutrophils % 81.6 % (40.0-70.0) H 05/11/16 04:16 Seg Neuts % (Manual) 76.0 % (40.0-70.0) H 05/10/16 03:55 Band Neutrophils % 5.0 % 05/10/16 03:55 Lymphocytes % (Manual) 9.0 % (13.4-35.0) L 05/10/16 03:55 Reactive Lymphs % (Man) 0 % 05/10/16 03:55 Monocytes % (Manual) 10.0 % (0.0-7.3) H 05/10/16 03:55 Eosinophils % (Manual) 0 % (0.0-4.3) 05/10/16 03:55 Basophils % (Manual) 0 % (0.0-1.8) 05/10/16 03:55 Metamyelocytes % 0 % 05/10/16 03:55 Myelocytes % 0 % 05/10/16 03:55 Promyelocytes % 0 % 05/10/16 03:55 Blast Cells % 0 % 05/10/16 03:55 Nucleated RBC % Not Reportable 05/10/16 03:55 Seg Neutrophils # 13.1 K/mm3 (1.8-7.7) H 05/11/16 04:16 Seg Neutrophils # Man 12.8 K/mm3 (1.8-7.7) H 05/10/16 03:55 Band Neutrophils # 0.8 K/mm3 05/10/16 03:55 Lymphocytes # (Manual) 1.5 K/mm3 (1.2-5.4) 05/10/16 03:55 Abs React Lymphs (Man) 0.0 K/mm3 05/10/16 03:55 Monocytes # (Manual) 1.7 K/mm3 (0.0-0.8) H 05/10/16 03:55 Eosinophils # (Manual) 0.0 K/mm3 (0.0-0.4) 05/10/16 03:55 Basophils # (Manual) 0.0 K/mm3 (0.0-0.1) 05/10/16 03:55 Metamyelocytes # 0.0 K/mm3 05/10/16 03:55 Myelocytes # 0.0 K/mm3 05/10/16 03:55 Promyelocytes # 0.0 K/mm3 05/10/16 03:55 Blast Cells # 0.0 K/mm3 05/10/16 03:55 WBC Morphology Not Reportable 05/10/16 03:55 Hypersegmented Neuts Not Reportable 05/10/16 03:55 Hyposegmented Neuts Not Reportable 05/10/16 03:55 Hypogranular Neuts Not Reportable 05/10/16 03:55 Smudge Cells Not Reportable 05/10/16 03:55 Toxic Granulation Not Reportable 05/10/16 03:55 Toxic Vacuolation Not Reportable 05/10/16 03:55 Dohle Bodies Not Reportable 05/10/16 03:55 Pelger-Huet Anomaly Not Reportable 05/10/16 03:55 Corina Rods Not Reportable 05/10/16 03:55 Platelet Estimate Consistent w auto 05/10/16 03:55 Clumped Platelets Not Reportable 05/10/16 03:55 Plt Clumps, EDTA Not Reportable 05/10/16 03:55 Large Platelets Not Reportable 05/10/16 03:55 Giant Platelets Not Reportable 05/10/16 03:55 Platelet Satelliting Not Reportable 05/10/16 03:55 Plt Morphology Comment Not Reportable 05/10/16 03:55 RBC Morphology Not Reportable 05/10/16 03:55 Dimorphic RBCs Not Reportable 05/10/16 03:55 Polychromasia Rare 05/10/16 03:55 Hypochromasia Rare 05/10/16 03:55 Poikilocytosis Not Reportable 05/10/16 03:55 Anisocytosis 1+ 05/10/16 03:55 Microcytosis Not Reportable 05/10/16 03:55 Macrocytosis Not Reportable 05/10/16 03:55 Spherocytes Not Reportable 05/10/16 03:55 Pappenheimer Bodies Not Reportable 05/10/16 03:55 Sickle Cells Not Reportable 05/10/16 03:55 Target Cells Not Reportable 05/10/16 03:55 Tear Drop Cells Not Reportable 05/10/16 03:55 Ovalocytes Not Reportable 05/10/16 03:55 Helmet Cells Not Reportable 05/10/16 03:55 [place] Bodies Not Reportable 05/10/16 03:55 [place] Rings Not Reportable 05/10/16 03:55 Tuan Cells Not Reportable 05/10/16 03:55 Bite Cells Not Reportable 05/10/16 03:55 Crenated Cell Not Reportable 05/10/16 03:55 Elliptocytes Not Reportable 05/10/16 03:55 Acanthocytes (Spur) Not Reportable 05/10/16 03:55 Rouleaux Not Reportable 05/10/16 03:55 Hemoglobin C Crystals Not Reportable 05/10/16 03:55 Schistocytes Not Reportable 05/10/16 03:55 Malaria parasites Not Reportable 05/10/16 03:55 Percent Retic 3.68 % (0.78-2.58) H 04/29/16 10:16 [place] Bodies Not Reportable 05/10/16 03:55 Hem Pathologist Commnt No 05/10/16 03:55 PT 14.5 Sec. (12.2-14.9) 05/10/16 12:54 INR 1.14 (0.87-1.13) H 05/10/16 12:54 APTT 33.7 Sec. (24.2-36.6) 05/10/16 12:54 Heparin Anti-Xa Level 0.21 U.I./ml (0.3-0.7) L 05/09/16 04:07 POC ABG pH 7.511 (7.35-7.45) H 05/06/16 05:30 POC ABG pCO2 36.2 (35-45) 05/06/16 05:30 POC ABG pO2 92 (80-105) 05/06/16 05:30 POC ABG HCO3 28.9 05/06/16 05:30 POC ABG Total CO2 30 05/06/16 05:30 POC ABG O2 Sat 98 05/06/16 05:30 POC ABG Base Excess 6 05/06/16 05:30 VBG pH 7.418 (7.320-7.420) 03/24/16 14:00 FiO2 25 % 05/06/16 05:30 Sodium 152 mmol/L (137-145) H 05/11/16 04:16 Potassium 4.1 mmol/L (3.6-5.0) 05/11/16 04:16 Chloride 114.2 mmol/L (98-107) H 05/11/16 04:16 Carbon Dioxide 27 mmol/L (22-30) 05/11/16 04:16 Anion Gap 15 mmol/L 05/11/16 04:16 BUN 23 mg/dL (9-20) H 05/11/16 04:16 Creatinine 0.6 mg/dL (0.8-1.5) L 05/11/16 04:16 Estimated GFR > 60 ml/min 05/11/16 04:16 BUN/Creatinine Ratio 38.33 % 05/11/16 04:16 Glucose 166 mg/dL (75-100) H 05/11/16 04:16 POC Glucose 192 (70-105) H 05/11/16 11:30 Hemoglobin A1c 9.6 % (4-6) H 03/24/16 14:00 Lactic Acid 1.6 mmol/L (0.7-2.0) 04/17/16 12:17 Calcium 8.0 mg/dL (8.4-10.2) L 05/11/16 04:16 Phosphorus 3.1 mg/dL (2.5-4.5) 05/11/16 04:16 Magnesium 2.3 mg/dL (1.7-2.3) 05/11/16 04:16 Iron 10 ug/dL (49-181) L 04/29/16 10:16 TIBC 138 mcg/dL (250-450) L 04/29/16 10:16 Ferritin 336.4 ng/mL (13.0-400.0) 04/29/16 10:16 Total Bilirubin < 0.2 mg/dL (0.1-1.2) 04/27/16 04:21 AST 18 units/L (5-40) 04/27/16 04:21 ALT 39 units/L (7-56) 04/27/16 04:21 Alkaline Phosphatase 103 units/L (35-129) 04/27/16 04:21 Lactate Dehydrogenase 204 units/L (91-180) H 04/29/16 10:16 Total Creatine Kinase 356 units/L (55-170) H 03/28/16 13:29 Troponin T < 0.010 ng/mL (0.00-0.029) 03/28/16 13:29 NT-Pro-B Natriuret Pep 897.9 pg/mL (0-900) 04/03/16 04:10 Serum Total Protein 7.1 g/dL (6.1-8.1) 03/25/16 13:00 Total Protein 6.0 g/dL (6.3-8.2) L 04/27/16 04:21 Albumin 2.0 g/dL (3.9-5) L 04/27/16 04:21 Albumin/Globulin Ratio 0.5 % 04/27/16 04:21 Hasbf-8-Xotvoqyov See scanned report 03/31/16 12:20 Oenua-5-Lecbuujri See scanned report 03/31/16 12:20 Beta Globulins See scanned report 03/31/16 12:20 Bmst-9-Ewgfhtpkpgilb 2.46 mg/L (<=2.51) 03/25/16 13:00 Gamma Globulins See scanned report 03/31/16 12:20 Abnorm Protein Band 1 see below (()) 03/25/16 13:00 PEP Interpretation See scanned report 03/31/16 12:20 Triglycerides 88 mg/dL (2-149) 03/24/16 17:58 Cholesterol 221 mg/dL (50-199) H 03/24/16 17:58 LDL Cholesterol Direct 146 mg/dL (50-130) H 03/24/16 17:58 HDL Cholesterol 58 mg/dL (40-59) 03/24/16 17:58 Cholesterol/HDL Ratio 3.81 % 03/24/16 17:58 Vitamin B12 1005 pg/mL (211-911) H 04/29/16 10:16 Folate 12.78 ng/mL (7.3-26.0) 04/29/16 10:16 Urine Color Yellow (Yellow) 05/04/16 10:20 Urine Turbidity Cloudy (Clear) 05/04/16 10:20 Urine pH 5.0 (5.0-7.0) 05/04/16 10:20 Ur Specific [place] 1.017 (1.003-1.030) 05/04/16 10:20 Urine Protein 100 mg/dl mg/dL (Negative) 05/04/16 10:20 Urine Glucose (UA) >=500 mg/dL (Negative) 05/04/16 10:20 Urine Ketones Neg mg/dL (Negative) 05/04/16 10:20 Urine Blood Sm (Negative) 05/04/16 10:20 Urine Nitrite Neg (Negative) 05/04/16 10:20 Urine Bilirubin Neg (Negative) 05/04/16 10:20 Urine Urobilinogen 2.0 mg/dL (<2.0) 05/04/16 10:20 Ur Leukocyte Esterase Lg (Negative) 05/04/16 10:20 Urine WBC (Auto) > 182.0 /HPF (0.0-6.0) H 05/04/16 10:20 Urine RBC (Auto) 13.0 /HPF (0.0-6.0) 05/04/16 10:20 U Epithel Cells (Auto) < 1.0 /HPF (0-13.0) 05/04/16 10:20 Urine Bacteria (Auto) 1+ /HPF (Negative) 05/04/16 10:20 Urine WBC Clumps 3+ /HPF 05/04/16 10:20 Hyaline Casts 1 /LPF 03/24/16 14:27 Urine Mucus Few /HPF 05/04/16 10:20 Urine Yeast (Budding) 1+ /HPF 05/04/16 10:20 Ur Random Creatinine See scanned report 03/31/16 12:20 U Random Total Protein See scanned report 03/31/16 12:20 Urine Creatinine 85.5 mg/dL (0.1-20.0) H 04/20/16 11:50 Protein/Creatinin Ratio See scanned report 03/31/16 12:20 Urine Sodium 17 mEq/L 04/20/16 11:50 U Abnormal Prot Band 1 See scanned report 03/31/16 12:20 U Abnormal Prot Band 2 See scanned report 03/31/16 12:20 U Abnormal Prot Band 3 See scanned report 03/31/16 12:20 Ketones 1.0 mg/dL (0.2-2.8) 03/24/16 14:00 Blood Type A POSITIVE 05/09/16 19:47 Antibody Screen Negative 05/09/16 19:47 Crossmatch See Detail 05/09/16 19:47
--- NOTE | 2016-05-11 14:56 | Progress Note ---
Addendum entered and electronically signed by MASOOD HAWLEY MD 05/11/16 20:13 : Conservative cardiac management. Original Note: Assessment and Plan Acute respiratory failure requiring re intubation s/p trach no evidence of PE by V\Q scan normal ventricular and atria size, EF 65% on echo this admission. Acute CVA LIZZIE - very dense echo contrast noted in the thoracic aorta consistent with low flow state, severe concentric LVH, normal functioning bioprosthetic aortic valve. Coumadin on hold Acute drop in anemia requiring blood transfusion IV heparin held. Coumadin held Abnormal ECG no significant CAD by [facility] 08/2015 Hx of aortic dissection s/p repair Hx of bioprosthetic aortic valve replacement Hypertension Plan: Conservative cardiac management Subjective Date of service: 05/11/16 Principal diagnosis: CVA, acute respiratory failure Interval history: No interval changes. Sinus rhythm on telemetry. Stable BP of 113/76 currently. Objective Vital Signs Temp Pulse Pulse Pulse Pulse Pulse Resp 05/11/16 14:20 18 05/11/16 14:01 85 05/11/16 14:00 87 10 L 05/11/16 13:47 84 17 05/11/16 13:27 78 05/11/16 13:12 788 H 05/11/16 13:01 86 13 05/11/16 12:16 98.2 F 05/11/16 12:12 93 H 24 05/11/16 12:00 92 H 21 05/11/16 11:51 92 H 92 H 21 05/11/16 11:47 91 H 05/11/16 11:44 92 H 20 05/11/16 11:24 92 H 21 05/11/16 11:15 91 H 23 05/11/16 11:00 91 H 22 05/11/16 10:16 87 21 05/11/16 10:00 78 27 H 05/11/16 09:48 18 05/11/16 09:44 84 22 05/11/16 09:40 85 05/11/16 09:00 82 12 05/11/16 08:38 82 05/11/16 08:29 05/11/16 08:24 80 05/11/16 08:23 79 05/11/16 08:07 80 80 20 05/11/16 08:05 80 05/11/16 08:04 98.6 F 05/11/16 08:00 81 22 05/11/16 07:00 79 18 05/11/16 06:18 81 22 05/11/16 06:00 81 22 05/11/16 05:00 78 21 05/11/16 04:16 77 19 05/11/16 04:00 99 F 77 80 80 23 05/11/16 03:47 78 05/11/16 03:38 77 19 05/11/16 03:00 78 21 05/11/16 02:04 77 20 05/11/16 02:00 77 20 05/11/16 01:56 77 20 05/11/16 01:44 74 05/11/16 01:00 77 20 05/11/16 00:23 78 20 05/11/16 00:00 98.9 F 76 81 21 05/10/16 23:40 75 21 05/10/16 23:33 77 05/10/16 23:00 75 21 05/10/16 22:32 76 21 05/10/16 22:00 75 24 05/10/16 21:45 81 05/10/16 21:00 80 23 05/10/16 20:00 99.7 F H 79 79 79 19 05/10/16 19:35 76 05/10/16 19:10 81 05/10/16 19:00 79 11 L 05/10/16 18:03 26 H 05/10/16 18:02 81 26 H 05/10/16 18:00 80 25 H 05/10/16 17:58 82 29 H 05/10/16 17:34 79 27 H 05/10/16 17:00 75 21 05/10/16 16:50 77 9 L 05/10/16 16:10 99.6 F 05/10/16 16:00 77 23 05/10/16 15:53 99.6 F 05/10/16 15:52 77 27 H 05/10/16 15:50 77 26 H 05/10/16 15:45 77 77 26 H 05/10/16 15:28 76 22 05/10/16 15:00 78 20 Resp Resp BP Pulse Ox Pulse Ox 05/11/16 14:20 100 05/11/16 14:01 113/76 05/11/16 14:00 114/68 96 05/11/16 13:47 113/76 100 05/11/16 13:27 20 05/11/16 13:12 18 05/11/16 13:01 103/69 100 05/11/16 12:16 05/11/16 12:12 103/69 100 05/11/16 12:00 103/69 05/11/16 11:51 100 05/11/16 11:47 114/74 98 05/11/16 11:44 114/74 99 05/11/16 11:24 114/74 99 05/11/16 11:15 114/74 99 05/11/16 11:00 114/74 98 05/11/16 10:16 122/72 98 05/11/16 10:00 117/77 98 05/11/16 09:48 98 05/11/16 09:44 111/75 99 05/11/16 09:40 111/75 05/11/16 09:00 111/75 05/11/16 08:38 18 05/11/16 08:29 100 05/11/16 08:24 135/82 05/11/16 08:23 18 05/11/16 08:07 100 05/11/16 08:05 135/82 100 05/11/16 08:04 05/11/16 08:00 135/82 99 05/11/16 07:00 132/76 97 05/11/16 06:18 131/76 98 05/11/16 06:00 131/76 05/11/16 05:00 124/74 05/11/16 04:16 120/72 99 05/11/16 04:00 120/72 100 05/11/16 03:47 127/71 99 05/11/16 03:38 127/71 99 05/11/16 03:00 127/71 97 05/11/16 02:04 122/72 99 05/11/16 02:00 122/72 05/11/16 01:56 117/68 99 05/11/16 01:44 20 05/11/16 01:00 117/68 05/11/16 00:23 118/68 99 05/11/16 00:00 118/68 100 05/10/16 23:40 110/69 99 05/10/16 23:33 110/69 99 05/10/16 23:00 110/69 98 05/10/16 22:32 122/71 99 05/10/16 22:00 122/71 96 05/10/16 21:45 123/71 05/10/16 21:00 123/71 98 05/10/16 20:00 122/71 100 05/10/16 19:35 20 05/10/16 19:10 115/68 100 05/10/16 19:00 115/68 05/10/16 18:03 100 05/10/16 18:02 120/72 100 05/10/16 18:00 120/72 99 05/10/16 17:58 113/68 100 05/10/16 17:34 113/68 100 05/10/16 17:00 113/68 98 05/10/16 16:50 116/70 99 05/10/16 16:10 05/10/16 16:00 116/70 98 05/10/16 15:53 05/10/16 15:52 117/73 100 05/10/16 15:50 117/73 99 05/10/16 15:45 100 05/10/16 15:28 117/73 99 05/10/16 15:00 117/73 97 - Physical Examination General: Other (vent to trach) Cardiac: Positive: Reg Rate and Rhythm Neuro: Positive: Weakness Abdomen: Positive: Soft Skin: Positive: Clear Extremities: Absent: edema - Labs and Meds CBC 05/11/16 Range/Units 04:16 WBC 16.1 H (4.5-11.0) K/mm3 RBC 3.27 L (3.65-5.03) M/mm3 Hgb 8.8 L (11.8-15.2) gm/dl Hct 27.7 L (35.5-45.6) % Plt Count 475 H (140-440) K/mm3 Lymph # 1.4 (1.2-5.4) K/mm3 [place] # 1.3 H (0.0-0.8) K/mm3 Eos # 0.2 (0.0-0.4) K/mm3 Baso # 0.1 (0.0-0.1) K/mm3 Comprehensive Metabolic Panel 05/11/16 Range/Units 04:16 Sodium 152 H (137-145) mmol/L Potassium 4.1 (3.6-5.0) mmol/L Chloride 114.2 H (98-107) mmol/L Carbon Dioxide 27 (22-30) mmol/L BUN 23 H (9-20) mg/dL Creatinine 0.6 L (0.8-1.5) mg/dL Glucose 166 H (75-100) mg/dL Calcium 8.0 L (8.4-10.2) mg/dL - Imaging and Cardiology EKG: image reviewed
--- NOTE | 2016-05-11 15:27 | Progress Note ---
Assessment and Plan 1. Continue to hold heparin for another 24 hours. We will re-assess in 24 hrs and see if heparin can be re-started. Subjective Date of service: 05/11/16 Narrative: The patient is with tracheosotmy in place. Objective Vital Signs - 12hr 05/11/16 05/11/16 05/11/16 03:38 03:47 04:00 Temperature 99 F Pulse Rate 77 78 77 Pulse Rate [ 80 Apical] Pulse Rate [ Bilateral] Pulse Rate [ 80 From Monitor] Respiratory 19 23 Rate Respiratory Rate [Bilateral ] Blood Pressure 127/71 127/71 120/72 O2 Sat by Pulse 99 99 100 Oximetry O2 Sat by Pulse Oximetry [ Assessment] 05/11/16 05/11/16 05/11/16 04:16 05:00 06:00 Temperature Pulse Rate 77 78 81 Pulse Rate [ Apical] Pulse Rate [ Bilateral] Pulse Rate [ From Monitor] Respiratory 19 21 22 Rate Respiratory Rate [Bilateral ] Blood Pressure 120/72 124/74 131/76 O2 Sat by Pulse 99 Oximetry O2 Sat by Pulse Oximetry [ Assessment] 05/11/16 05/11/16 05/11/16 06:18 07:00 08:00 Temperature Pulse Rate 81 79 81 Pulse Rate [ Apical] Pulse Rate [ Bilateral] Pulse Rate [ From Monitor] Respiratory 22 18 22 Rate Respiratory Rate [Bilateral ] Blood Pressure 131/76 132/76 135/82 O2 Sat by Pulse 98 97 99 Oximetry O2 Sat by Pulse Oximetry [ Assessment] 05/11/16 05/11/16 05/11/16 08:04 08:05 08:07 Temperature 98.6 F Pulse Rate 80 Pulse Rate [ 80 Apical] Pulse Rate [ Bilateral] Pulse Rate [ 80 From Monitor] Respiratory 20 Rate Respiratory Rate [Bilateral ] Blood Pressure 135/82 O2 Sat by Pulse 100 100 Oximetry O2 Sat by Pulse Oximetry [ Assessment] 05/11/16 05/11/16 05/11/16 08:23 08:24 08:29 Temperature Pulse Rate 80 Pulse Rate [ Apical] Pulse Rate [ 79 Bilateral] Pulse Rate [ From Monitor] Respiratory Rate Respiratory 18 Rate [Bilateral ] Blood Pressure 135/82 O2 Sat by Pulse Oximetry O2 Sat by Pulse 100 Oximetry [ Assessment] 05/11/16 05/11/16 05/11/16 08:38 09:00 09:40 Temperature Pulse Rate 82 85 Pulse Rate [ Apical] Pulse Rate [ 82 Bilateral] Pulse Rate [ From Monitor] Respiratory 12 Rate Respiratory 18 Rate [Bilateral ] Blood Pressure 111/75 111/75 O2 Sat by Pulse Oximetry O2 Sat by Pulse Oximetry [ Assessment] 05/11/16 05/11/16 05/11/16 09:44 09:48 10:00 Temperature Pulse Rate 84 78 Pulse Rate [ Apical] Pulse Rate [ Bilateral] Pulse Rate [ From Monitor] Respiratory 22 18 27 H Rate Respiratory Rate [Bilateral ] Blood Pressure 111/75 117/77 O2 Sat by Pulse 99 98 98 Oximetry O2 Sat by Pulse Oximetry [ Assessment] 05/11/16 05/11/16 05/11/16 10:16 11:00 11:15 Temperature Pulse Rate 87 91 H 91 H Pulse Rate [ Apical] Pulse Rate [ Bilateral] Pulse Rate [ From Monitor] Respiratory 21 22 23 Rate Respiratory Rate [Bilateral ] Blood Pressure 122/72 114/74 114/74 O2 Sat by Pulse 98 98 99 Oximetry O2 Sat by Pulse Oximetry [ Assessment] 05/11/16 05/11/16 05/11/16 11:24 11:44 11:47 Temperature Pulse Rate 92 H 92 H 91 H Pulse Rate [ Apical] Pulse Rate [ Bilateral] Pulse Rate [ From Monitor] Respiratory 21 20 Rate Respiratory Rate [Bilateral ] Blood Pressure 114/74 114/74 114/74 O2 Sat by Pulse 99 99 98 Oximetry O2 Sat by Pulse Oximetry [ Assessment] 05/11/16 05/11/16 05/11/16 11:51 12:00 12:12 Temperature Pulse Rate 92 H 93 H Pulse Rate [ 92 H Apical] Pulse Rate [ Bilateral] Pulse Rate [ 92 H From Monitor] Respiratory 21 21 24 Rate Respiratory Rate [Bilateral ] Blood Pressure 103/69 103/69 O2 Sat by Pulse 100 100 Oximetry O2 Sat by Pulse Oximetry [ Assessment] 05/11/16 05/11/16 05/11/16 12:16 13:01 13:12 Temperature 98.2 F Pulse Rate 86 Pulse Rate [ Apical] Pulse Rate [ 788 H Bilateral] Pulse Rate [ From Monitor] Respiratory 13 Rate Respiratory 18 Rate [Bilateral ] Blood Pressure 103/69 O2 Sat by Pulse 100 Oximetry O2 Sat by Pulse Oximetry [ Assessment] 05/11/16 05/11/16 05/11/16 13:27 13:47 14:00 Temperature Pulse Rate 84 87 Pulse Rate [ Apical] Pulse Rate [ 78 Bilateral] Pulse Rate [ From Monitor] Respiratory 17 10 L Rate Respiratory 20 Rate [Bilateral ] Blood Pressure 113/76 114/68 O2 Sat by Pulse 100 96 Oximetry O2 Sat by Pulse Oximetry [ Assessment] 05/11/16 05/11/16 05/11/16 14:01 14:20 14:34 Temperature Pulse Rate 85 79 Pulse Rate [ Apical] Pulse Rate [ Bilateral] Pulse Rate [ From Monitor] Respiratory 18 20 Rate Respiratory Rate [Bilateral ] Blood Pressure 113/76 114/68 O2 Sat by Pulse 100 100 Oximetry O2 Sat by Pulse Oximetry [ Assessment] 05/11/16 15:00 Temperature Pulse Rate 78 Pulse Rate [ Apical] Pulse Rate [ Bilateral] Pulse Rate [ From Monitor] Respiratory 20 Rate Respiratory Rate [Bilateral ] Blood Pressure 99/66 O2 Sat by Pulse Oximetry O2 Sat by Pulse Oximetry [ Assessment] - Neck no masses (no bleeding noted around the tracheostomy. No blood noted on dressing ) - Labs 05/11/16 04:16 05/11/16 04:16 Diabetes panel 05/11/16 Range/Units 04:16 Sodium 152 H (137-145) mmol/L Potassium 4.1 (3.6-5.0) mmol/L Chloride 114.2 H (98-107) mmol/L Carbon Dioxide 27 (22-30) mmol/L BUN 23 H (9-20) mg/dL Creatinine 0.6 L (0.8-1.5) mg/dL Glucose 166 H (75-100) mg/dL Calcium 8.0 L (8.4-10.2) mg/dL Calcium panel 05/11/16 Range/Units 04:16 Calcium 8.0 L (8.4-10.2) mg/dL Phosphorus 3.1 (2.5-4.5) mg/dL Pituitary panel 05/11/16 Range/Units 04:16 Sodium 152 H (137-145) mmol/L Potassium 4.1 (3.6-5.0) mmol/L Chloride 114.2 H (98-107) mmol/L Carbon Dioxide 27 (22-30) mmol/L BUN 23 H (9-20) mg/dL Creatinine 0.6 L (0.8-1.5) mg/dL Glucose 166 H (75-100) mg/dL Calcium 8.0 L (8.4-10.2) mg/dL Adrenal panel 05/11/16 Range/Units 04:16 Sodium 152 H (137-145) mmol/L Potassium 4.1 (3.6-5.0) mmol/L Chloride 114.2 H (98-107) mmol/L Carbon Dioxide 27 (22-30) mmol/L BUN 23 H (9-20) mg/dL Creatinine 0.6 L (0.8-1.5) mg/dL Glucose 166 H (75-100) mg/dL Calcium 8.0 L (8.4-10.2) mg/dL
--- NOTE | 2016-05-11 19:18 | Progress Note ---
Assessment and Plan Imp: 1. Acute CVA 2. Acute respiratory failure, hypoxia 3. S/p Trach 4. UTI 5. Sepsis 6. R/o Neck cellulitis per CT neck findings 7. Hypernatremia Rec: 1. Minimize sedation 2. Hold heparin 3. Surgery f/u re: trach 4. Broadened ABX to Zosyn day #2 to cover UTI and any possible soft tissue infection 5. Hold PSV today 6. SCDs ordered 7. TFs -> increase free water 8. Placement when able to secure benefits No family present CCT 31 minutes Subjective Date of service: 05/11/16 Principal diagnosis: CVA, acute respiratory failure Interval history: + Bleeding around trach better off heparin drip. Area bandaged. He is on ventilator, poorly responsive, critically ill. Active Medications Acetaminophen (Tylenol) 650 mg PO Q4H PRN PRN Reason: Pain MILD(1-3)/Fever >100.5/DUVAL Last Admin: 05/08/16 19:44 Dose: 650 mg Albuterol/Ipratropium (Duoneb 0.5 Mg-3 Mg/3 Ml Soln) 1 ampul IH Q6HRT [facility] Last Admin: 05/11/16 13:11 Dose: 1 ampul Amiodarone HCl (Cordarone) 200 mg PO DAILY [facility] Last Admin: 05/11/16 09:39 Dose: 200 mg Amlodipine Besylate (Norvasc) 10 mg PO DAILY [facility] Last Admin: 05/11/16 09:40 Dose: 10 mg Lipase/Protease/Amylase (Pancreaze Dr 10,500 Unit) 1 each FEEDTUBE PRN PRN PRN Reason: For Clogged Feeding Tube Atorvastatin Calcium (Lipitor) 10 mg PO QHS [facility] Last Admin: 05/10/16 21:46 Dose: 10 mg Bisacodyl (Dulcolax) 10 mg OH QDAY PRN PRN Reason: Constipation unrelieved by MOM Dextrose (D50w (25gm)) 50 ml IV PRN PRN PRN Reason: Hypoglycemia Last Admin: 04/22/16 05:48 Dose: 50 ml Famotidine (Pepcid) 20 mg PO BID [facility] Last Admin: 05/11/16 09:40 Dose: 20 mg Hydralazine HCl (Apresoline) 20 mg IV Q6H PRN PRN Reason: PRN SBP > 150 Last Admin: 04/23/16 00:38 Dose: 20 mg Hydrophilic Ointment (Vaseline Lip Therapy) 1 applic TP Q2HR PRN PRN Reason: Dry Lips Piperacillin Sod/Tazobactam Sod (Zosyn/Ns 4.5gm/100ml) 100 mls @ 200 mls/hr IV Q6HR [facility] Stop: 05/17/16 12:59 Last Admin: 05/11/16 17:33 Dose: 200 mls/hr Insulin Aspart (Novolog) 0 units SUB-Q Q6HR ANA LUISA PRN Reason: Protocol Last Admin: 05/11/16 17:30 Dose: Not Given Insulin Detemir (Levemir) 40 units SUB-Q DAILY [facility] Last Admin: 05/11/16 09:41 Dose: 40 units Labetalol HCl (Normodyne) 400 mg PO TID [facility] Last Admin: 05/11/16 14:01 Dose: 400 mg Levetiracetam (Keppra) 500 mg PO BID [facility] Last Admin: 05/11/16 09:39 Dose: 500 mg Lisinopril (Zestril) 40 mg PO BID [facility] Last Admin: 05/11/16 09:40 Dose: 40 mg Magnesium Hydroxide (Milk Of Magnesia) 30 ml PO Q4H PRN PRN Reason: Constipation Last Admin: 04/25/16 06:21 Dose: 30 ml Metoclopramide HCl (Reglan) 5 mg IV Q6H PRN PRN Reason: TUBE FEED RESIDUAL Last Admin: 04/25/16 06:21 Dose: 5 mg Multi-Ingred Cream/Lotion/Oil/Oint (Artificial Tears Ophth Oint) 1 applic OU Q4HR PRN PRN Reason: Dry Eye(s) Ondansetron HCl (Zofran) 4 mg IV Q8H PRN PRN Reason: N/V unrelieved by Reglan Last Admin: 04/20/16 21:53 Dose: 4 mg Simple Syrup (Simple Syrup) 15 ml FEEDTUBE PRN PRN PRN Reason: Hypoglycemia Last Admin: 05/08/16 17:53 Dose: 15 ml Simple Syrup (Simple Syrup) 30 ml FEEDTUBE PRN PRN PRN Reason: Hypoglycemia Sodium Bicarbonate (Sodium Bicarbonate) 325 mg FEEDTUBE PRN PRN PRN Reason: For Clogged Feeding Tube Sodium Chloride (Nacl 0.9% 500 Ml) 1 ml IV DIRECT ANA LUISA Warfarin Sodium (Coumadin Pharmacy To Dose) 1 each PO PKCONSULT ANA LUISA PRN Reason: Protocol Objective Vital Signs - 12hr 05/11/16 05/11/16 05/11/16 08:00 08:04 08:05 Temperature 98.6 F Pulse Rate 81 80 Pulse Rate [ Apical] Pulse Rate [ Bilateral] Pulse Rate [ From Monitor] Respiratory 22 Rate Respiratory Rate [Bilateral ] Blood Pressure 135/82 135/82 O2 Sat by Pulse 99 100 Oximetry O2 Sat by Pulse Oximetry [ Assessment] 05/11/16 05/11/16 05/11/16 08:07 08:23 08:24 Temperature Pulse Rate 80 Pulse Rate [ 80 Apical] Pulse Rate [ 79 Bilateral] Pulse Rate [ 80 From Monitor] Respiratory 20 Rate Respiratory 18 Rate [Bilateral ] Blood Pressure 135/82 O2 Sat by Pulse 100 Oximetry O2 Sat by Pulse Oximetry [ Assessment] 05/11/16 05/11/16 05/11/16 08:29 08:38 09:00 Temperature Pulse Rate 82 Pulse Rate [ Apical] Pulse Rate [ 82 Bilateral] Pulse Rate [ From Monitor] Respiratory 12 Rate Respiratory 18 Rate [Bilateral ] Blood Pressure 111/75 O2 Sat by Pulse Oximetry O2 Sat by Pulse 100 Oximetry [ Assessment] 05/11/16 05/11/16 05/11/16 09:40 09:44 09:48 Temperature Pulse Rate 85 84 Pulse Rate [ Apical] Pulse Rate [ Bilateral] Pulse Rate [ From Monitor] Respiratory 22 18 Rate Respiratory Rate [Bilateral ] Blood Pressure 111/75 111/75 O2 Sat by Pulse 99 98 Oximetry O2 Sat by Pulse Oximetry [ Assessment] 05/11/16 05/11/16 05/11/16 10:00 10:16 11:00 Temperature Pulse Rate 78 87 91 H Pulse Rate [ Apical] Pulse Rate [ Bilateral] Pulse Rate [ From Monitor] Respiratory 27 H 21 22 Rate Respiratory Rate [Bilateral ] Blood Pressure 117/77 122/72 114/74 O2 Sat by Pulse 98 98 98 Oximetry O2 Sat by Pulse Oximetry [ Assessment] 05/11/16 05/11/16 05/11/16 11:15 11:24 11:44 Temperature Pulse Rate 91 H 92 H 92 H Pulse Rate [ Apical] Pulse Rate [ Bilateral] Pulse Rate [ From Monitor] Respiratory 23 21 20 Rate Respiratory Rate [Bilateral ] Blood Pressure 114/74 114/74 114/74 O2 Sat by Pulse 99 99 99 Oximetry O2 Sat by Pulse Oximetry [ Assessment] 05/11/16 05/11/16 05/11/16 11:47 11:51 12:00 Temperature Pulse Rate 91 H 92 H Pulse Rate [ 92 H Apical] Pulse Rate [ Bilateral] Pulse Rate [ 92 H From Monitor] Respiratory 21 21 Rate Respiratory Rate [Bilateral ] Blood Pressure 114/74 103/69 O2 Sat by Pulse 98 100 Oximetry O2 Sat by Pulse Oximetry [ Assessment] 05/11/16 05/11/16 05/11/16 12:12 12:16 13:01 Temperature 98.2 F Pulse Rate 93 H 86 Pulse Rate [ Apical] Pulse Rate [ Bilateral] Pulse Rate [ From Monitor] Respiratory 24 13 Rate Respiratory Rate [Bilateral ] Blood Pressure 103/69 103/69 O2 Sat by Pulse 100 100 Oximetry O2 Sat by Pulse Oximetry [ Assessment] 05/11/16 05/11/16 05/11/16 13:12 13:27 13:47 Temperature Pulse Rate 84 Pulse Rate [ Apical] Pulse Rate [ 788 H 78 Bilateral] Pulse Rate [ From Monitor] Respiratory 17 Rate Respiratory 18 20 Rate [Bilateral ] Blood Pressure 113/76 O2 Sat by Pulse 100 Oximetry O2 Sat by Pulse Oximetry [ Assessment] 05/11/16 05/11/16 05/11/16 14:00 14:01 14:20 Temperature Pulse Rate 87 85 Pulse Rate [ Apical] Pulse Rate [ Bilateral] Pulse Rate [ From Monitor] Respiratory 10 L 18 Rate Respiratory Rate [Bilateral ] Blood Pressure 114/68 113/76 O2 Sat by Pulse 96 100 Oximetry O2 Sat by Pulse Oximetry [ Assessment] 05/11/16 05/11/16 05/11/16 14:34 14:52 15:00 Temperature Pulse Rate 79 77 78 Pulse Rate [ Apical] Pulse Rate [ Bilateral] Pulse Rate [ From Monitor] Respiratory 20 20 20 Rate Respiratory Rate [Bilateral ] Blood Pressure 114/68 114/68 99/66 O2 Sat by Pulse 100 100 Oximetry O2 Sat by Pulse Oximetry [ Assessment] 05/11/16 05/11/16 05/11/16 15:01 15:40 15:55 Temperature Pulse Rate 78 74 Pulse Rate [ Apical] Pulse Rate [ Bilateral] Pulse Rate [ From Monitor] Respiratory 22 Rate Respiratory Rate [Bilateral ] Blood Pressure 99/66 99/66 O2 Sat by Pulse 100 100 Oximetry O2 Sat by Pulse 96 Oximetry [ Assessment] 05/11/16 05/11/16 05/11/16 16:00 16:20 17:00 Temperature 97.5 F L Pulse Rate 75 82 Pulse Rate [ 84 Apical] Pulse Rate [ Bilateral] Pulse Rate [ 84 From Monitor] Respiratory 20 21 22 Rate Respiratory Rate [Bilateral ] Blood Pressure 94/61 105/69 O2 Sat by Pulse 99 100 Oximetry O2 Sat by Pulse Oximetry [ Assessment] 05/11/16 05/11/16 05/11/16 17:13 17:59 18:05 Temperature Pulse Rate 83 86 Pulse Rate [ Apical] Pulse Rate [ Bilateral] Pulse Rate [ From Monitor] Respiratory 27 H 22 19 Rate Respiratory Rate [Bilateral ] Blood Pressure 105/69 105/69 O2 Sat by Pulse 100 99 99 Oximetry O2 Sat by Pulse Oximetry [ Assessment] Constitutional: no acute distress, other (opens eyes, not following commands for me) Eyes: non-icteric ENT: other (tracheotomy) Neck: other (swelling/large bandage in place) Effort: normal Ascultation: Bilateral: other (coarse BS bilaterally) Percussion: Bilateral: not dull Cardiovascular: regular rate and rhythm (no mrg) Gastrointestinal: normoactive bowel sounds, soft, non-tender Extremities: no cyanosis, no edema Neurologic: other (eyes open, not following commands or moving extremities for me) Psychiatric: other (unable to assess) CBC and BMP: 05/11/16 04:16 05/11/16 04:16 ABG, PT/INR, D-dimer: ABG POC ABG pH 7.511 (7.35-7.45) H 05/06/16 05:30 POC ABG pCO2 36.2 (35-45) 05/06/16 05:30 POC ABG pO2 92 (80-105) 05/06/16 05:30 POC ABG HCO3 28.9 05/06/16 05:30 POC ABG Total CO2 30 05/06/16 05:30 POC ABG O2 Sat 98 05/06/16 05:30 PT/INR, D-dimer PT 14.5 Sec. (12.2-14.9) 05/10/16 12:54 INR 1.14 (0.87-1.13) H 05/10/16 12:54 Abnormal lab findings: Abnormal Labs 03/24/16 03/24/16 03/24/16 17:58 20:25 23:23 WBC RBC Hgb Hct MCV MCH MCHC RDW Plt Count Lymph % (Auto) [place] % (Auto) Lymph # [place] # Baso # Seg Neutrophils % Seg Neuts % (Manual) Lymphocytes % (Manual) Monocytes % (Manual) Seg Neutrophils # Seg Neutrophils # Man Lymphocytes # (Manual) Monocytes # (Manual) Basophils # (Manual) Percent Retic PT INR APTT Heparin Anti-Xa Level POC ABG pH POC ABG pCO2 POC ABG pO2 Sodium 169 H* Potassium 3.5 L Chloride 130.3 H Carbon Dioxide BUN 28 H Creatinine 1.8 H Glucose POC Glucose 112 H Calcium Phosphorus Iron TIBC Lactate Dehydrogenase Total Creatine Kinase NT-Pro-B Natriuret Pep Total Protein Albumin Ytehh-3-Ytojjvhqa Hxemn-4-Rqrgfegrd Beta Globulins PEP Interpretation Cholesterol 221 H LDL Cholesterol Direct 146 H Vitamin B12 Urine WBC (Auto) Urine Creatinine Crossmatch 03/25/16 03/25/16 03/25/16 05:56 05:56 05:56 WBC 21.3 H RBC 6.32 H Hgb 16.7 H Hct 52.7 H MCV 83 L MCH 27 L MCHC RDW Plt Count Lymph % (Auto) [place] % (Auto) Lymph # [place] # Baso # Seg Neutrophils % Seg Neuts % (Manual) 91.0 H Lymphocytes % (Manual) 4.0 L Monocytes % (Manual) Seg Neutrophils # Seg Neutrophils # Man 19.4 H Lymphocytes # (Manual) 0.9 L Monocytes # (Manual) 0.9 H Basophils # (Manual) Percent Retic PT INR APTT Heparin Anti-Xa Level POC ABG pH POC ABG pCO2 POC ABG pO2 Sodium 172 H* Potassium 3.5 L Chloride 130.4 H Carbon Dioxide BUN 29 H Creatinine 1.8 H Glucose 187 H POC Glucose Calcium Phosphorus Iron TIBC Lactate Dehydrogenase 460 H Total Creatine Kinase NT-Pro-B Natriuret Pep Total Protein Albumin Ljzbx-6-Rutvsenpv Xhkle-1-Onpeqmabv Beta Globulins PEP Interpretation Cholesterol LDL Cholesterol Direct Vitamin B12 Urine WBC (Auto) Urine Creatinine Crossmatch 03/25/16 03/25/16 03/25/16 07:55 12:19 13:00 WBC RBC Hgb Hct MCV MCH MCHC RDW Plt Count Lymph % (Auto) [place] % (Auto) Lymph # [place] # Baso # Seg Neutrophils % Seg Neuts % (Manual) Lymphocytes % (Manual) Monocytes % (Manual) Seg Neutrophils # Seg Neutrophils # Man Lymphocytes # (Manual) Monocytes # (Manual) Basophils # (Manual) Percent Retic PT INR APTT Heparin Anti-Xa Level POC ABG pH POC ABG pCO2 POC ABG pO2 Sodium Potassium Chloride Carbon Dioxide BUN Creatinine Glucose POC Glucose 231 H 314 H Calcium Phosphorus Iron TIBC Lactate Dehydrogenase Total Creatine Kinase NT-Pro-B Natriuret Pep Total Protein Albumin 3.4 L Hqink-5-Bqgegplvy 0.4 H Drkgp-8-Kmxpgpazz 1.1 H Beta Globulins 0.6 H PEP Interpretation see below H Cholesterol LDL Cholesterol Direct Vitamin B12 Urine WBC (Auto) Urine Creatinine Crossmatch 03/25/16 03/25/16 03/26/16 16:41 22:45 08:32 WBC RBC Hgb Hct MCV MCH MCHC RDW Plt Count Lymph % (Auto) [place] % (Auto) Lymph # [place] # Baso # Seg Neutrophils % Seg Neuts % (Manual) Lymphocytes % (Manual) Monocytes % (Manual) Seg Neutrophils # Seg Neutrophils # Man Lymphocytes # (Manual) Monocytes # (Manual) Basophils # (Manual) Percent Retic PT INR APTT Heparin Anti-Xa Level POC ABG pH POC ABG pCO2 POC ABG pO2 Sodium Potassium Chloride Carbon Dioxide BUN Creatinine Glucose POC Glucose 444 H 326 H 360 H Calcium Phosphorus Iron TIBC Lactate Dehydrogenase Total Creatine Kinase NT-Pro-B Natriuret Pep Total Protein Albumin Ogear-3-Dislwkiag Ejtrf-5-Aeiovgtqd Beta Globulins PEP Interpretation Cholesterol LDL Cholesterol Direct Vitamin B12 Urine WBC (Auto) Urine Creatinine Crossmatch 03/26/16 03/26/16 03/26/16 12:38 15:33 15:47 WBC RBC Hgb Hct MCV MCH MCHC RDW Plt Count Lymph % (Auto) [place] % (Auto) Lymph # [place] # Baso # Seg Neutrophils % Seg Neuts % (Manual) Lymphocytes % (Manual) Monocytes % (Manual) Seg Neutrophils # Seg Neutrophils # Man Lymphocytes # (Manual) Monocytes # (Manual) Basophils # (Manual) Percent Retic PT INR APTT Heparin Anti-Xa Level POC ABG pH 7.511 H POC ABG pCO2 26.5 L POC ABG pO2 70 L Sodium Potassium Chloride Carbon Dioxide BUN Creatinine Glucose POC Glucose 280 H 174 H Calcium Phosphorus Iron TIBC Lactate Dehydrogenase Total Creatine Kinase NT-Pro-B Natriuret Pep Total Protein Albumin Dhubx-4-Gqqimpsmp Flhyk-0-Xknjzsbom Beta Globulins PEP Interpretation Cholesterol LDL Cholesterol Direct Vitamin B12 Urine WBC (Auto) Urine Creatinine Crossmatch 03/26/16 03/26/16 03/26/16 16:47 16:47 18:51 WBC 14.0 H RBC 5.17 H Hgb Hct MCV MCH 26 L MCHC 31 L RDW Plt Count 139 L Lymph % (Auto) [place] % (Auto) Lymph # [place] # Baso # Seg Neutrophils % Seg Neuts % (Manual) Lymphocytes % (Manual) Monocytes % (Manual) Seg Neutrophils # Seg Neutrophils # Man Lymphocytes # (Manual) Monocytes # (Manual) Basophils # (Manual) Percent Retic PT INR APTT Heparin Anti-Xa Level POC ABG pH POC ABG pCO2 33.9 L POC ABG pO2 150 H Sodium 164 H* Potassium 3.4 L Chloride 128.5 H Carbon Dioxide BUN 30 H Creatinine 2.2 H Glucose 121 H POC Glucose Calcium 8.1 L Phosphorus Iron TIBC Lactate Dehydrogenase Total Creatine Kinase NT-Pro-B Natriuret Pep Total Protein Albumin Bcmaa-8-Wavkfauch Wtgrr-9-Aqdfvnuwk Beta Globulins PEP Interpretation Cholesterol LDL Cholesterol Direct Vitamin B12 Urine WBC (Auto) Urine Creatinine Crossmatch 03/27/16 03/27/16 03/27/16 02:19 05:47 06:02 WBC RBC Hgb Hct MCV MCH MCHC RDW Plt Count Lymph % (Auto) [place] % (Auto) Lymph # [place] # Baso # Seg Neutrophils % Seg Neuts % (Manual) Lymphocytes % (Manual) Monocytes % (Manual) Seg Neutrophils # Seg Neutrophils # Man Lymphocytes # (Manual) Monocytes # (Manual) Basophils # (Manual) Percent Retic PT INR APTT Heparin Anti-Xa Level POC ABG pH POC ABG pCO2 27.3 L 30.3 L POC ABG pO2 50 L 112 H Sodium 158 H Potassium Chloride 126.7 H Carbon Dioxide 20 L BUN 25 H Creatinine 1.7 H Glucose POC Glucose Calcium 7.0 L Phosphorus Iron TIBC Lactate Dehydrogenase Total Creatine Kinase NT-Pro-B Natriuret Pep Total Protein Albumin Vqxgu-3-Igobpgogs Qbyge-1-Erxcbbtsj Beta Globulins PEP Interpretation Cholesterol LDL Cholesterol Direct Vitamin B12 Urine WBC (Auto) Urine Creatinine Crossmatch 03/27/16 03/27/16 03/27/16 07:51 09:20 11:45 WBC 14.2 H RBC Hgb Hct MCV 83 L MCH 27 L MCHC RDW Plt Count 113 L Lymph % (Auto) [place] % (Auto) Lymph # [place] # Baso # Seg Neutrophils % Seg Neuts % (Manual) Lymphocytes % (Manual) Monocytes % (Manual) Seg Neutrophils # Seg Neutrophils # Man Lymphocytes # (Manual) Monocytes # (Manual) Basophils # (Manual) Percent Retic PT INR APTT Heparin Anti-Xa Level POC ABG pH POC ABG pCO2 POC ABG pO2 Sodium Potassium Chloride Carbon Dioxide BUN Creatinine Glucose POC Glucose 124 H 241 H Calcium Phosphorus Iron TIBC Lactate Dehydrogenase Total Creatine Kinase NT-Pro-B Natriuret Pep Total Protein Albumin Iazrb-6-Wbbwflgtq Jwunt-3-Dzbniybel Beta Globulins PEP Interpretation Cholesterol LDL Cholesterol Direct Vitamin B12 Urine WBC (Auto) Urine Creatinine Crossmatch 03/27/16 03/27/16 03/28/16 16:39 22:03 03:29 WBC RBC Hgb Hct MCV MCH MCHC RDW Plt Count Lymph % (Auto) [place] % (Auto) Lymph # [place] # Baso # Seg Neutrophils % Seg Neuts % (Manual) Lymphocytes % (Manual) Monocytes % (Manual) Seg Neutrophils # Seg Neutrophils # Man Lymphocytes # (Manual) Monocytes # (Manual) Basophils # (Manual) Percent Retic PT INR APTT Heparin Anti-Xa Level POC ABG pH POC ABG pCO2 POC ABG pO2 Sodium Potassium Chloride Carbon Dioxide BUN Creatinine Glucose POC Glucose 266 H 167 H 241 H Calcium Phosphorus Iron TIBC Lactate Dehydrogenase Total Creatine Kinase NT-Pro-B Natriuret Pep Total Protein Albumin Pbbkt-2-Mhnvurigr Jdvxi-1-Omfyhgfga Beta Globulins PEP Interpretation Cholesterol LDL Cholesterol Direct Vitamin B12 Urine WBC (Auto) Urine Creatinine Crossmatch 03/28/16 03/28/16 03/28/16 05:00 05:00 05:00 WBC RBC Hgb Hct MCV 83 L MCH 27 L MCHC RDW Plt Count 106 L Lymph % (Auto) [place] % (Auto) 10.1 H Lymph # [place] # 1.0 H Baso # Seg Neutrophils % 75.1 H Seg Neuts % (Manual) Lymphocytes % (Manual) Monocytes % (Manual) Seg Neutrophils # Seg Neutrophils # Man Lymphocytes # (Manual) Monocytes # (Manual) Basophils # (Manual) Percent Retic PT INR APTT Heparin Anti-Xa Level POC ABG pH POC ABG pCO2 POC ABG pO2 Sodium 147 H D Potassium 3.1 L D Chloride 112.3 H Carbon Dioxide 21 L BUN Creatinine Glucose 208 H POC Glucose Calcium 7.0 L Phosphorus 2.2 L Iron TIBC Lactate Dehydrogenase Total Creatine Kinase NT-Pro-B Natriuret Pep Total Protein Albumin Fwtmg-2-Qfhswobyd Brwqq-3-Bwtqubxji Beta Globulins PEP Interpretation Cholesterol LDL Cholesterol Direct Vitamin B12 Urine WBC (Auto) Urine Creatinine Crossmatch 03/28/16 03/28/16 03/28/16 05:14 08:41 10:56 WBC RBC Hgb Hct MCV MCH MCHC RDW Plt Count Lymph % (Auto) [place] % (Auto) Lymph # [place] # Baso # Seg Neutrophils % Seg Neuts % (Manual) Lymphocytes % (Manual) Monocytes % (Manual) Seg Neutrophils # Seg Neutrophils # Man Lymphocytes # (Manual) Monocytes # (Manual) Basophils # (Manual) Percent Retic PT INR APTT Heparin Anti-Xa Level POC ABG pH 7.457 H POC ABG pCO2 29.7 L 27.7 L POC ABG pO2 Sodium Potassium Chloride Carbon Dioxide BUN Creatinine Glucose POC Glucose 228 H Calcium Phosphorus Iron TIBC Lactate Dehydrogenase Total Creatine Kinase NT-Pro-B Natriuret Pep Total Protein Albumin Wqbep-5-Dkvwgiclq Sbuog-4-Kldegbexj Beta Globulins PEP Interpretation Cholesterol LDL Cholesterol Direct Vitamin B12 Urine WBC (Auto) Urine Creatinine Crossmatch 03/28/16 03/28/16 03/28/16 11:37 13:29 16:22 WBC RBC Hgb Hct MCV MCH MCHC RDW Plt Count Lymph % (Auto) [place] % (Auto) Lymph # [place] # Baso # Seg Neutrophils % Seg Neuts % (Manual) Lymphocytes % (Manual) Monocytes % (Manual) Seg Neutrophils # Seg Neutrophils # Man Lymphocytes # (Manual) Monocytes # (Manual) Basophils # (Manual) Percent Retic PT INR APTT Heparin Anti-Xa Level POC ABG pH POC ABG pCO2 POC ABG pO2 Sodium Potassium Chloride Carbon Dioxide BUN Creatinine Glucose POC Glucose 226 H 200 H Calcium Phosphorus Iron TIBC Lactate Dehydrogenase Total Creatine Kinase 356 H NT-Pro-B Natriuret Pep Total Protein Albumin Zufhu-5-Xmcjrrkyt Xdlqw-6-Myrljeaot Beta Globulins PEP Interpretation Cholesterol LDL Cholesterol Direct Vitamin B12 Urine WBC (Auto) Urine Creatinine Crossmatch 03/28/16 03/29/16 03/29/16 21:48 04:50 04:50 WBC RBC Hgb 11.5 L Hct 35.3 L MCV 81 L MCH 26 L MCHC RDW Plt Count 97 L Lymph % (Auto) [place] % (Auto) 11.7 H Lymph # [place] # 1.1 H Baso # Seg Neutrophils % Seg Neuts % (Manual) Lymphocytes % (Manual) Monocytes % (Manual) Seg Neutrophils # Seg Neutrophils # Man Lymphocytes # (Manual) Monocytes # (Manual) Basophils # (Manual) Percent Retic PT INR APTT Heparin Anti-Xa Level POC ABG pH POC ABG pCO2 POC ABG pO2 Sodium 136 L D Potassium 3.3 L Chloride Carbon Dioxide 20 L BUN Creatinine Glucose 386 H POC Glucose 188 H Calcium 6.8 L Phosphorus 1.6 L D Iron TIBC Lactate Dehydrogenase Total Creatine Kinase NT-Pro-B Natriuret Pep Total Protein Albumin Ylaas-0-Dvbxwdovx Hwmxf-8-Lpbikavsk Beta Globulins PEP Interpretation Cholesterol LDL Cholesterol Direct Vitamin B12 Urine WBC (Auto) Urine Creatinine Crossmatch 03/29/16 03/29/16 03/29/16 08:10 11:12 16:09 WBC RBC Hgb Hct MCV MCH MCHC RDW Plt Count Lymph % (Auto) [place] % (Auto) Lymph # [place] # Baso # Seg Neutrophils % Seg Neuts % (Manual) Lymphocytes % (Manual) Monocytes % (Manual) Seg Neutrophils # Seg Neutrophils # Man Lymphocytes # (Manual) Monocytes # (Manual) Basophils # (Manual) Percent Retic PT INR APTT Heparin Anti-Xa Level POC ABG pH POC ABG pCO2 POC ABG pO2 Sodium Potassium Chloride Carbon Dioxide BUN Creatinine Glucose POC Glucose 230 H 180 H 46 L Calcium Phosphorus Iron TIBC Lactate Dehydrogenase Total Creatine Kinase NT-Pro-B Natriuret Pep Total Protein Albumin Puxrt-5-Fgcyhnawc Japhr-3-Hrovzkuey Beta Globulins PEP Interpretation Cholesterol LDL Cholesterol Direct Vitamin B12 Urine WBC (Auto) Urine Creatinine Crossmatch 03/29/16 03/29/16 03/30/16 16:12 18:15 02:53 WBC RBC Hgb Hct MCV MCH MCHC RDW Plt Count Lymph % (Auto) [place] % (Auto) Lymph # [place] # Baso # Seg Neutrophils % Seg Neuts % (Manual) Lymphocytes % (Manual) Monocytes % (Manual) Seg Neutrophils # Seg Neutrophils # Man Lymphocytes # (Manual) Monocytes # (Manual) Basophils # (Manual) Percent Retic PT INR APTT Heparin Anti-Xa Level POC ABG pH POC ABG pCO2 POC ABG pO2 Sodium Potassium Chloride Carbon Dioxide BUN Creatinine Glucose POC Glucose 52 L 118 H 130 H Calcium Phosphorus Iron TIBC Lactate Dehydrogenase Total Creatine Kinase NT-Pro-B Natriuret Pep Total Protein Albumin Dnelr-5-Yidvuvoom Xqfhv-1-Hgqvpjyew Beta Globulins PEP Interpretation Cholesterol LDL Cholesterol Direct Vitamin B12 Urine WBC (Auto) Urine Creatinine Crossmatch 03/30/16 03/30/16 03/30/16 04:00 04:00 05:29 WBC RBC Hgb Hct MCV 81 L MCH 26 L MCHC RDW Plt Count 116 L Lymph % (Auto) 10.8 L [place] % (Auto) 13.1 H Lymph # 1.0 L [place] # 1.3 H Baso # Seg Neutrophils % 74.2 H Seg Neuts % (Manual) Lymphocytes % (Manual) Monocytes % (Manual) Seg Neutrophils # Seg Neutrophils # Man Lymphocytes # (Manual) Monocytes # (Manual) Basophils # (Manual) Percent Retic PT INR APTT Heparin Anti-Xa Level POC ABG pH 7.522 H POC ABG pCO2 22.7 L POC ABG pO2 137 H Sodium 147 H D Potassium Chloride 115.5 H Carbon Dioxide 20 L BUN Creatinine Glucose 116 H POC Glucose Calcium 7.6 L Phosphorus 2.3 L D Iron TIBC Lactate Dehydrogenase Total Creatine Kinase NT-Pro-B Natriuret Pep Total Protein Albumin Ljnea-5-Lovtyxjkb Pyhqe-7-Ldvfnpoqw Beta Globulins PEP Interpretation Cholesterol LDL Cholesterol Direct Vitamin B12 Urine WBC (Auto) Urine Creatinine Crossmatch 03/30/16 03/30/16 03/30/16 05:47 08:05 08:59 WBC RBC Hgb Hct MCV MCH MCHC RDW Plt Count Lymph % (Auto) [place] % (Auto) Lymph # [place] # Baso # Seg Neutrophils % Seg Neuts % (Manual) Lymphocytes % (Manual) Monocytes % (Manual) Seg Neutrophils # Seg Neutrophils # Man Lymphocytes # (Manual) Monocytes # (Manual) Basophils # (Manual) Percent Retic PT INR APTT Heparin Anti-Xa Level POC ABG pH POC ABG pCO2 26.2 L POC ABG pO2 115 H Sodium Potassium Chloride Carbon Dioxide BUN Creatinine Glucose POC Glucose 138 H 171 H Calcium Phosphorus Iron TIBC Lactate Dehydrogenase Total Creatine Kinase NT-Pro-B Natriuret Pep Total Protein Albumin Yqecm-0-Awnhrzfzl Skbnp-5-Cfueyszlo Beta Globulins PEP Interpretation Cholesterol LDL Cholesterol Direct Vitamin B12 Urine WBC (Auto) Urine Creatinine Crossmatch 03/30/16 03/30/16 03/30/16 12:11 12:11 16:39 WBC RBC Hgb Hct MCV MCH MCHC RDW Plt Count Lymph % (Auto) [place] % (Auto) Lymph # [place] # Baso # Seg Neutrophils % Seg Neuts % (Manual) Lymphocytes % (Manual) Monocytes % (Manual) Seg Neutrophils # Seg Neutrophils # Man Lymphocytes # (Manual) Monocytes # (Manual) Basophils # (Manual) Percent Retic PT INR APTT Heparin Anti-Xa Level POC ABG pH 7.476 H POC ABG pCO2 29.0 L POC ABG pO2 Sodium Potassium Chloride Carbon Dioxide BUN Creatinine Glucose POC Glucose 142 H 59 L Calcium Phosphorus Iron TIBC Lactate Dehydrogenase Total Creatine Kinase NT-Pro-B Natriuret Pep Total Protein Albumin [id number] [id number]-[id number]-Sakbrtcvo Beta Globulins PEP Interpretation Cholesterol LDL Cholesterol Direct Vitamin B12 Urine WBC (Auto) Urine Creatinine Crossmatch 03/30/16 03/30/16 03/31/16 18:41 21:59 05:02 WBC RBC Hgb Hct MCV MCH MCHC RDW Plt Count Lymph % (Auto) [place] % (Auto) Lymph # [place] # Baso # Seg Neutrophils % Seg Neuts % (Manual) Lymphocytes % (Manual) Monocytes % (Manual) Seg Neutrophils # Seg Neutrophils # Man Lymphocytes # (Manual) Monocytes # (Manual) Basophils # (Manual) Percent Retic PT INR APTT Heparin Anti-Xa Level POC ABG pH 7.519 H POC ABG pCO2 21.8 L POC ABG pO2 142 H Sodium Potassium Chloride Carbon Dioxide BUN Creatinine Glucose POC Glucose 145 H 154 H Calcium Phosphorus Iron TIBC Lactate Dehydrogenase Total Creatine Kinase NT-Pro-B Natriuret Pep Total Protein Albumin Cjpev-2-Zhypfaifh Zgbzp-5-Xxpqfobgt Beta Globulins PEP Interpretation Cholesterol LDL Cholesterol Direct Vitamin B12 Urine WBC (Auto) Urine Creatinine Crossmatch 03/31/16 03/31/16 03/31/16 05:15 05:15 05:15 WBC 13.4 H RBC 5.21 H Hgb Hct MCV 81 L MCH 26 L MCHC RDW Plt Count Lymph % (Auto) 9.5 L [place] % (Auto) 14.0 H Lymph # [place] # 1.9 H Baso # Seg Neutrophils % 75.0 H Seg Neuts % (Manual) Lymphocytes % (Manual) Monocytes % (Manual) Seg Neutrophils # 10.1 H Seg Neutrophils # Man Lymphocytes # (Manual) Monocytes # (Manual) Basophils # (Manual) Percent Retic PT INR APTT Heparin Anti-Xa Level POC ABG pH POC ABG pCO2 POC ABG pO2 Sodium Potassium Chloride 108.5 H Carbon Dioxide 19 L BUN Creatinine Glucose 188 H POC Glucose Calcium Phosphorus Iron TIBC Lactate Dehydrogenase Total Creatine Kinase NT-Pro-B Natriuret Pep 1089 H Total Protein Albumin Dneqq-0-Cfrevnzrq Zhmnh-3-Cqfnxqpga Beta Globulins PEP Interpretation Cholesterol LDL Cholesterol Direct Vitamin B12 Urine WBC (Auto) Urine Creatinine Crossmatch 03/31/16 03/31/16 03/31/16 07:23 11:12 15:20 WBC RBC Hgb Hct MCV MCH MCHC RDW Plt Count Lymph % (Auto) [place] % (Auto) Lymph # [place] # Baso # Seg Neutrophils % Seg Neuts % (Manual) Lymphocytes % (Manual) Monocytes % (Manual) Seg Neutrophils # Seg Neutrophils # Man Lymphocytes # (Manual) Monocytes # (Manual) Basophils # (Manual) Percent Retic PT INR APTT Heparin Anti-Xa Level POC ABG pH POC ABG pCO2 POC ABG pO2 Sodium Potassium Chloride Carbon Dioxide BUN Creatinine Glucose POC Glucose 233 H 228 H 208 H Calcium Phosphorus Iron TIBC Lactate Dehydrogenase Total Creatine Kinase NT-Pro-B Natriuret Pep Total Protein Albumin Mocqr-3-Dalaxprnt Pzpnv-9-Xunycghdn Beta Globulins PEP Interpretation Cholesterol LDL Cholesterol Direct Vitamin B12 Urine WBC (Auto) Urine Creatinine Crossmatch 03/31/16 04/01/16 04/01/16 21:27 04:41 05:35 WBC 12.1 H RBC Hgb Hct MCV 81 L MCH 26 L MCHC RDW Plt Count Lymph % (Auto) 8.5 L [place] % (Auto) 14.0 H Lymph # 1.0 L [place] # 1.7 H Baso # Seg Neutrophils % 76.2 H Seg Neuts % (Manual) Lymphocytes % (Manual) Monocytes % (Manual) Seg Neutrophils # 9.2 H Seg Neutrophils # Man Lymphocytes # (Manual) Monocytes # (Manual) Basophils # (Manual) Percent Retic PT INR APTT Heparin Anti-Xa Level POC ABG pH 7.455 H POC ABG pCO2 31.0 L POC ABG pO2 Sodium Potassium Chloride Carbon Dioxide BUN Creatinine Glucose POC Glucose 162 H Calcium Phosphorus Iron TIBC Lactate Dehydrogenase Total Creatine Kinase NT-Pro-B Natriuret Pep Total Protein Albumin Zanuy-0-Tmdzfhmkt Xrrrj-8-Ylceerpaz Beta Globulins PEP Interpretation Cholesterol LDL Cholesterol Direct Vitamin B12 Urine WBC (Auto) Urine Creatinine Crossmatch 04/01/16 04/01/16 04/01/16 05:35 08:44 12:49 WBC RBC Hgb Hct MCV MCH MCHC RDW Plt Count Lymph % (Auto) [place] % (Auto) Lymph # [place] # Baso # Seg Neutrophils % Seg Neuts % (Manual) Lymphocytes % (Manual) Monocytes % (Manual) Seg Neutrophils # Seg Neutrophils # Man Lymphocytes # (Manual) Monocytes # (Manual) Basophils # (Manual) Percent Retic PT INR APTT Heparin Anti-Xa Level POC ABG pH POC ABG pCO2 POC ABG pO2 Sodium Potassium Chloride Carbon Dioxide BUN Creatinine Glucose 256 H POC Glucose 257 H 279 H Calcium 8.0 L Phosphorus Iron TIBC Lactate Dehydrogenase Total Creatine Kinase NT-Pro-B Natriuret Pep 1205 H Total Protein Albumin Rttem-3-Zeqhddwbs Ymfsa-7-Tcqafeskd Beta Globulins PEP Interpretation Cholesterol LDL Cholesterol Direct Vitamin B12 Urine WBC (Auto) Urine Creatinine Crossmatch 04/01/16 04/02/16 04/02/16 18:12 00:42 04:17 WBC RBC Hgb Hct MCV MCH MCHC RDW Plt Count Lymph % (Auto) [place] % (Auto) Lymph # [place] # Baso # Seg Neutrophils % Seg Neuts % (Manual) Lymphocytes % (Manual) Monocytes % (Manual) Seg Neutrophils # Seg Neutrophils # Man Lymphocytes # (Manual) Monocytes # (Manual) Basophils # (Manual) Percent Retic PT INR APTT Heparin Anti-Xa Level POC ABG pH 7.582 H POC ABG pCO2 26.8 L POC ABG pO2 Sodium Potassium Chloride Carbon Dioxide BUN Creatinine Glucose POC Glucose 168 H 282 H Calcium Phosphorus Iron TIBC Lactate Dehydrogenase Total Creatine Kinase NT-Pro-B Natriuret Pep Total Protein Albumin Fzhfh-4-Jsdqqddim Qjtju-4-Ltmwlipgb Beta Globulins PEP Interpretation Cholesterol LDL Cholesterol Direct Vitamin B12 Urine WBC (Auto) Urine Creatinine Crossmatch 04/02/16 04/02/16 04/02/16 05:00 05:00 06:27 WBC 12.4 H RBC Hgb Hct MCV 81 L MCH 26 L MCHC RDW Plt Count Lymph % (Auto) 6.4 L [place] % (Auto) 13.3 H Lymph # 0.8 L [place] # 1.7 H Baso # Seg Neutrophils % 79.4 H Seg Neuts % (Manual) Lymphocytes % (Manual) Monocytes % (Manual) Seg Neutrophils # 9.9 H Seg Neutrophils # Man Lymphocytes # (Manual) Monocytes # (Manual) Basophils # (Manual) Percent Retic PT INR APTT Heparin Anti-Xa Level POC ABG pH POC ABG pCO2 POC ABG pO2 Sodium 146 H Potassium Chloride Carbon Dioxide BUN Creatinine Glucose 334 H POC Glucose 317 H Calcium 8.0 L Phosphorus Iron TIBC Lactate Dehydrogenase Total Creatine Kinase NT-Pro-B Natriuret Pep Total Protein Albumin Volah-2-Kbnqwmtvy Ijexr-7-Uzbwoncuj Beta Globulins PEP Interpretation Cholesterol LDL Cholesterol Direct Vitamin B12 Urine WBC (Auto) Urine Creatinine Crossmatch 04/02/16 04/02/16 04/02/16 11:51 13:10 17:24 WBC RBC Hgb Hct MCV MCH MCHC RDW Plt Count Lymph % (Auto) [place] % (Auto) Lymph # [place] # Baso # Seg Neutrophils % Seg Neuts % (Manual) Lymphocytes % (Manual) Monocytes % (Manual) Seg Neutrophils # Seg Neutrophils # Man Lymphocytes # (Manual) Monocytes # (Manual) Basophils # (Manual) Percent Retic PT INR APTT Heparin Anti-Xa Level POC ABG pH 7.518 H POC ABG pCO2 POC ABG pO2 Sodium Potassium Chloride Carbon Dioxide BUN Creatinine Glucose POC Glucose 278 H 195 H Calcium Phosphorus Iron TIBC Lactate Dehydrogenase Total Creatine Kinase NT-Pro-B Natriuret Pep Total Protein Albumin Qnmku-4-Wkdildxpd Jtgsc-5-Kykmfyvqb Beta Globulins PEP Interpretation Cholesterol LDL Cholesterol Direct Vitamin B12 Urine WBC (Auto) Urine Creatinine Crossmatch 04/03/16 04/03/16 04/03/16 00:18 04:10 04:10 WBC 14.3 H RBC Hgb Hct MCV 81 L MCH 26 L MCHC RDW Plt Count Lymph % (Auto) 9.0 L [place] % (Auto) 10.7 H Lymph # [place] # 1.5 H Baso # 0.2 H Seg Neutrophils % 78.5 H Seg Neuts % (Manual) Lymphocytes % (Manual) Monocytes % (Manual) Seg Neutrophils # 11.3 H Seg Neutrophils # Man Lymphocytes # (Manual) Monocytes # (Manual) Basophils # (Manual) Percent Retic PT INR APTT Heparin Anti-Xa Level POC ABG pH POC ABG pCO2 POC ABG pO2 Sodium 148 H Potassium Chloride 108.1 H Carbon Dioxide BUN 21 H Creatinine Glucose 227 H POC Glucose 144 H Calcium 8.2 L Phosphorus Iron TIBC Lactate Dehydrogenase Total Creatine Kinase NT-Pro-B Natriuret Pep Total Protein Albumin Hmzja-6-Ejejkcfcq Fwkcd-0-Zrmendcig Beta Globulins PEP Interpretation Cholesterol LDL Cholesterol Direct Vitamin B12 Urine WBC (Auto) Urine Creatinine Crossmatch 04/03/16 04/03/16 04/04/16 11:14 17:10 04:00 WBC 14.5 H RBC Hgb Hct MCV 81 L MCH 26 L MCHC RDW Plt Count Lymph % (Auto) 7.2 L [place] % (Auto) 7.6 H Lymph # 1.0 L [place] # 1.1 H Baso # Seg Neutrophils % 84.5 H Seg Neuts % (Manual) Lymphocytes % (Manual) Monocytes % (Manual) Seg Neutrophils # 12.3 H Seg Neutrophils # Man Lymphocytes # (Manual) Monocytes # (Manual) Basophils # (Manual) Percent Retic PT INR APTT Heparin Anti-Xa Level POC ABG pH POC ABG pCO2 POC ABG pO2 Sodium Potassium Chloride Carbon Dioxide BUN Creatinine Glucose POC Glucose 267 H 212 H Calcium Phosphorus Iron TIBC Lactate Dehydrogenase Total Creatine Kinase NT-Pro-B Natriuret Pep Total Protein Albumin Hphvb-7-Ebqepjkvf Rpmzf-8-Xyfbqjkyw Beta Globulins PEP Interpretation Cholesterol LDL Cholesterol Direct Vitamin B12 Urine WBC (Auto) Urine Creatinine Crossmatch 04/04/16 04/04/16 04/04/16 05:00 09:55 09:55 WBC RBC Hgb 11.5 L Hct MCV MCH MCHC RDW Plt Count Lymph % (Auto) [place] % (Auto) Lymph # [place] # Baso # Seg Neutrophils % Seg Neuts % (Manual) Lymphocytes % (Manual) Monocytes % (Manual) Seg Neutrophils # Seg Neutrophils # Man Lymphocytes # (Manual) Monocytes # (Manual) Basophils # (Manual) Percent Retic PT INR APTT 42.1 H Heparin Anti-Xa Level POC ABG pH POC ABG pCO2 POC ABG pO2 Sodium 146 H Potassium Chloride Carbon Dioxide BUN 22 H Creatinine Glucose 128 H POC Glucose Calcium Phosphorus Iron TIBC Lactate Dehydrogenase Total Creatine Kinase NT-Pro-B Natriuret Pep Total Protein Albumin Lkyji-4-Oqsrllbef Fybkh-8-Dmsekkzrz Beta Globulins PEP Interpretation Cholesterol LDL Cholesterol Direct Vitamin B12 Urine WBC (Auto) Urine Creatinine Crossmatch 04/04/16 04/04/16 04/04/16 11:45 17:49 17:55 WBC RBC Hgb Hct MCV MCH MCHC RDW Plt Count Lymph % (Auto) [place] % (Auto) Lymph # [place] # Baso # Seg Neutrophils % Seg Neuts % (Manual) Lymphocytes % (Manual) Monocytes % (Manual) Seg Neutrophils # Seg Neutrophils # Man Lymphocytes # (Manual) Monocytes # (Manual) Basophils # (Manual) Percent Retic PT INR APTT Heparin Anti-Xa Level 1.19 H POC ABG pH POC ABG pCO2 POC ABG pO2 Sodium Potassium Chloride Carbon Dioxide BUN Creatinine Glucose POC Glucose 231 H 186 H Calcium Phosphorus Iron TIBC Lactate Dehydrogenase Total Creatine Kinase NT-Pro-B Natriuret Pep Total Protein Albumin Uhtxr-6-Vwtqtwvch Htduw-7-Hayqapdvv Beta Globulins PEP Interpretation Cholesterol LDL Cholesterol Direct Vitamin B12 Urine WBC (Auto) Urine Creatinine Crossmatch 04/05/16 04/05/16 04/05/16 00:35 05:32 05:42 WBC RBC Hgb Hct MCV MCH MCHC RDW Plt Count Lymph % (Auto) [place] % (Auto) Lymph # [place] # Baso # Seg Neutrophils % Seg Neuts % (Manual) Lymphocytes % (Manual) Monocytes % (Manual) Seg Neutrophils # Seg Neutrophils # Man Lymphocytes # (Manual) Monocytes # (Manual) Basophils # (Manual) Percent Retic PT INR APTT Heparin Anti-Xa Level POC ABG pH 7.491 H POC ABG pCO2 POC ABG pO2 Sodium Potassium Chloride Carbon Dioxide BUN Creatinine Glucose POC Glucose 192 H 242 H Calcium Phosphorus Iron TIBC Lactate Dehydrogenase Total Creatine Kinase NT-Pro-B Natriuret Pep Total Protein Albumin Wcgww-8-Gcnnhqvwz Ldfcu-6-Ouhfjuhvt Beta Globulins PEP Interpretation Cholesterol LDL Cholesterol Direct Vitamin B12 Urine WBC (Auto) Urine Creatinine Crossmatch 04/05/16 04/05/16 04/05/16 06:20 06:20 12:19 WBC 13.9 H RBC Hgb 11.6 L Hct MCV 81 L MCH 26 L MCHC RDW Plt Count Lymph % (Auto) 9.6 L [place] % (Auto) 8.7 H Lymph # [place] # 1.2 H Baso # Seg Neutrophils % 80.9 H Seg Neuts % (Manual) Lymphocytes % (Manual) Monocytes % (Manual) Seg Neutrophils # 11.3 H Seg Neutrophils # Man Lymphocytes # (Manual) Monocytes # (Manual) Basophils # (Manual) Percent Retic PT INR APTT Heparin Anti-Xa Level POC ABG pH POC ABG pCO2 POC ABG pO2 Sodium 148 H Potassium Chloride Carbon Dioxide BUN 23 H Creatinine Glucose 242 H POC Glucose 187 H Calcium Phosphorus Iron TIBC Lactate Dehydrogenase Total Creatine Kinase NT-Pro-B Natriuret Pep Total Protein Albumin Mazva-1-Rtywxzyzp Ovtrs-0-Bdyskyibl Beta Globulins PEP Interpretation Cholesterol LDL Cholesterol Direct Vitamin B12 Urine WBC (Auto) Urine Creatinine Crossmatch 04/05/16 04/05/16 04/06/16 17:10 23:45 05:23 WBC 13.0 H RBC Hgb Hct MCV 82 L MCH 26 L MCHC 31 L RDW Plt Count Lymph % (Auto) 6.7 L [place] % (Auto) 8.3 H Lymph # 0.9 L [place] # 1.1 H Baso # Seg Neutrophils % 84.6 H Seg Neuts % (Manual) Lymphocytes % (Manual) Monocytes % (Manual) Seg Neutrophils # 11.0 H Seg Neutrophils # Man Lymphocytes # (Manual) Monocytes # (Manual) Basophils # (Manual) Percent Retic PT INR APTT Heparin Anti-Xa Level POC ABG pH POC ABG pCO2 POC ABG pO2 Sodium Potassium Chloride Carbon Dioxide BUN Creatinine Glucose POC Glucose 169 H 202 H Calcium Phosphorus Iron TIBC Lactate Dehydrogenase Total Creatine Kinase NT-Pro-B Natriuret Pep Total Protein Albumin Iccom-6-Jgkcgahmo Eetiy-6-Bgwojbfqx Beta Globulins PEP Interpretation Cholesterol LDL Cholesterol Direct Vitamin B12 Urine WBC (Auto) Urine Creatinine Crossmatch 04/06/16 04/06/16 04/06/16 05:23 05:23 06:11 WBC RBC Hgb Hct MCV MCH MCHC RDW Plt Count Lymph % (Auto) [place] % (Auto) Lymph # [place] # Baso # Seg Neutrophils % Seg Neuts % (Manual) Lymphocytes % (Manual) Monocytes % (Manual) Seg Neutrophils # Seg Neutrophils # Man Lymphocytes # (Manual) Monocytes # (Manual) Basophils # (Manual) Percent Retic PT INR APTT Heparin Anti-Xa Level 0.21 L POC ABG pH POC ABG pCO2 POC ABG pO2 Sodium 153 H Potassium Chloride 111.3 H Carbon Dioxide BUN 22 H Creatinine Glucose 62 L POC Glucose 56 L Calcium Phosphorus Iron TIBC Lactate Dehydrogenase Total Creatine Kinase NT-Pro-B Natriuret Pep Total Protein Albumin Lkxtz-8-Gemgyvywb Oowrz-2-Kmrflnnnk Beta Globulins PEP Interpretation Cholesterol LDL Cholesterol Direct Vitamin B12 Urine WBC (Auto) Urine Creatinine Crossmatch 04/06/16 04/06/16 04/06/16 06:52 11:36 14:58 WBC RBC Hgb Hct MCV MCH MCHC RDW Plt Count Lymph % (Auto) [place] % (Auto) Lymph # [place] # Baso # Seg Neutrophils % Seg Neuts % (Manual) Lymphocytes % (Manual) Monocytes % (Manual) Seg Neutrophils # Seg Neutrophils # Man Lymphocytes # (Manual) Monocytes # (Manual) Basophils # (Manual) Percent Retic PT INR APTT Heparin Anti-Xa Level POC ABG pH POC ABG pCO2 POC ABG pO2 Sodium Potassium Chloride Carbon Dioxide BUN Creatinine Glucose POC Glucose 206 H 139 H 147 H Calcium Phosphorus Iron TIBC Lactate Dehydrogenase Total Creatine Kinase NT-Pro-B Natriuret Pep Total Protein Albumin Eghrx-6-Ikudpodqh Ugvwe-2-Eisxdtzqk Beta Globulins PEP Interpretation Cholesterol LDL Cholesterol Direct Vitamin B12 Urine WBC (Auto) Urine Creatinine Crossmatch 04/06/16 04/06/16 04/06/16 16:03 21:18 23:53 WBC RBC Hgb Hct MCV MCH MCHC RDW Plt Count Lymph % (Auto) [place] % (Auto) Lymph # [place] # Baso # Seg Neutrophils % Seg Neuts % (Manual) Lymphocytes % (Manual) Monocytes % (Manual) Seg Neutrophils # Seg Neutrophils # Man Lymphocytes # (Manual) Monocytes # (Manual) Basophils # (Manual) Percent Retic PT INR APTT Heparin Anti-Xa Level POC ABG pH POC ABG pCO2 POC ABG pO2 Sodium Potassium Chloride Carbon Dioxide BUN Creatinine Glucose POC Glucose 154 H 293 H 301 H Calcium Phosphorus Iron TIBC Lactate Dehydrogenase Total Creatine Kinase NT-Pro-B Natriuret Pep Total Protein Albumin Cgxnk-4-Wimnhcpdt Iuuks-8-Dvogwmsue Beta Globulins PEP Interpretation Cholesterol LDL Cholesterol Direct Vitamin B12 Urine WBC (Auto) Urine Creatinine Crossmatch 04/07/16 04/07/16 04/07/16 02:30 05:11 05:11 WBC 12.5 H RBC Hgb 11.5 L Hct MCV 82 L MCH 26 L MCHC 31 L RDW Plt Count Lymph % (Auto) [place] % (Auto) Lymph # [place] # Baso # Seg Neutrophils % Seg Neuts % (Manual) Lymphocytes % (Manual) Monocytes % (Manual) Seg Neutrophils # Seg Neutrophils # Man Lymphocytes # (Manual) Monocytes # (Manual) Basophils # (Manual) Percent Retic PT INR APTT Heparin Anti-Xa Level 0.11 L POC ABG pH POC ABG pCO2 POC ABG pO2 Sodium 150 H Potassium Chloride 109.5 H Carbon Dioxide BUN 28 H Creatinine Glucose 264 H POC Glucose Calcium Phosphorus Iron TIBC Lactate Dehydrogenase Total Creatine Kinase NT-Pro-B Natriuret Pep Total Protein Albumin Udapf-9-Gpgbbvzef Shcqn-2-Xubctkisj Beta Globulins PEP Interpretation Cholesterol LDL Cholesterol Direct Vitamin B12 Urine WBC (Auto) Urine Creatinine Crossmatch 04/07/16 04/07/16 04/07/16 06:46 10:18 11:50 WBC RBC Hgb Hct MCV MCH MCHC RDW Plt Count Lymph % (Auto) [place] % (Auto) Lymph # [place] # Baso # Seg Neutrophils % Seg Neuts % (Manual) Lymphocytes % (Manual) Monocytes % (Manual) Seg Neutrophils # Seg Neutrophils # Man Lymphocytes # (Manual) Monocytes # (Manual) Basophils # (Manual) Percent Retic PT 15.1 H INR 1.20 H APTT Heparin Anti-Xa Level POC ABG pH POC ABG pCO2 POC ABG pO2 Sodium Potassium Chloride Carbon Dioxide BUN Creatinine Glucose POC Glucose 259 H 288 H Calcium Phosphorus Iron TIBC Lactate Dehydrogenase Total Creatine Kinase NT-Pro-B Natriuret Pep Total Protein Albumin Iezxc-1-Fgrokuubb Tguet-9-Ktsehkxzf Beta Globulins PEP Interpretation Cholesterol LDL Cholesterol Direct Vitamin B12 Urine WBC (Auto) Urine Creatinine Crossmatch 04/07/16 04/08/16 04/08/16 17:58 01:25 06:49 WBC RBC Hgb Hct MCV MCH MCHC RDW Plt Count Lymph % (Auto) [place] % (Auto) Lymph # [place] # Baso # Seg Neutrophils % Seg Neuts % (Manual) Lymphocytes % (Manual) Monocytes % (Manual) Seg Neutrophils # Seg Neutrophils # Man Lymphocytes # (Manual) Monocytes # (Manual) Basophils # (Manual) Percent Retic PT INR APTT Heparin Anti-Xa Level POC ABG pH POC ABG pCO2 POC ABG pO2 Sodium 156 H Potassium Chloride 114.7 H Carbon Dioxide BUN 33 H Creatinine Glucose 169 H POC Glucose 330 H 146 H Calcium Phosphorus Iron TIBC Lactate Dehydrogenase Total Creatine Kinase NT-Pro-B Natriuret Pep Total Protein Albumin Hantq-2-Qkfvkgusu Ranog-9-Vqsfklads Beta Globulins PEP Interpretation Cholesterol LDL Cholesterol Direct Vitamin B12 Urine WBC (Auto) Urine Creatinine Crossmatch 04/08/16 04/08/16 04/08/16 07:34 10:28 10:28 WBC RBC Hgb Hct MCV MCH MCHC RDW Plt Count Lymph % (Auto) [place] % (Auto) Lymph # [place] # Baso # Seg Neutrophils % Seg Neuts % (Manual) Lymphocytes % (Manual) Monocytes % (Manual) Seg Neutrophils # Seg Neutrophils # Man Lymphocytes # (Manual) Monocytes # (Manual) Basophils # (Manual) Percent Retic PT 15.5 H INR 1.24 H APTT Heparin Anti-Xa Level 0.24 L POC ABG pH POC ABG pCO2 POC ABG pO2 Sodium Potassium Chloride Carbon Dioxide BUN Creatinine Glucose POC Glucose 232 H Calcium Phosphorus Iron TIBC Lactate Dehydrogenase Total Creatine Kinase NT-Pro-B Natriuret Pep Total Protein Albumin Acsys-3-Dghwrjfir Kkoor-2-Yvpsvykmr Beta Globulins PEP Interpretation Cholesterol LDL Cholesterol Direct Vitamin B12 Urine WBC (Auto) Urine Creatinine Crossmatch 04/08/16 04/08/16 04/09/16 11:36 15:38 00:01 WBC RBC Hgb Hct MCV MCH MCHC RDW Plt Count Lymph % (Auto) [place] % (Auto) Lymph # [place] # Baso # Seg Neutrophils % Seg Neuts % (Manual) Lymphocytes % (Manual) Monocytes % (Manual) Seg Neutrophils # Seg Neutrophils # Man Lymphocytes # (Manual) Monocytes # (Manual) Basophils # (Manual) Percent Retic PT INR APTT Heparin Anti-Xa Level POC ABG pH POC ABG pCO2 POC ABG pO2 Sodium Potassium Chloride Carbon Dioxide BUN Creatinine Glucose POC Glucose 193 H 163 H 180 H Calcium Phosphorus Iron TIBC Lactate Dehydrogenase Total Creatine Kinase NT-Pro-B Natriuret Pep Total Protein Albumin Yakwv-1-Bytglziip Zchdf-6-Fgwlsvbqb Beta Globulins PEP Interpretation Cholesterol LDL Cholesterol Direct Vitamin B12 Urine WBC (Auto) Urine Creatinine Crossmatch 04/09/16 04/09/16 04/09/16 06:17 06:42 06:42 WBC RBC Hgb Hct MCV MCH MCHC RDW Plt Count Lymph % (Auto) [place] % (Auto) Lymph # [place] # Baso # Seg Neutrophils % Seg Neuts % (Manual) Lymphocytes % (Manual) Monocytes % (Manual) Seg Neutrophils # Seg Neutrophils # Man Lymphocytes # (Manual) Monocytes # (Manual) Basophils # (Manual) Percent Retic PT 17.4 H INR 1.43 H APTT Heparin Anti-Xa Level POC ABG pH POC ABG pCO2 POC ABG pO2 Sodium 153 H Potassium Chloride 113.2 H Carbon Dioxide BUN 29 H Creatinine Glucose 301 H POC Glucose 249 H Calcium 8.3 L Phosphorus Iron TIBC Lactate Dehydrogenase Total Creatine Kinase NT-Pro-B Natriuret Pep Total Protein Albumin Cvbnj-9-Ynpsezdis Ruzur-2-Vvuzfrvwo Beta Globulins PEP Interpretation Cholesterol LDL Cholesterol Direct Vitamin B12 Urine WBC (Auto) Urine Creatinine Crossmatch 04/09/16 04/09/16 04/09/16 07:37 11:26 15:45 WBC RBC Hgb Hct MCV MCH MCHC RDW Plt Count Lymph % (Auto) [place] % (Auto) Lymph # [place] # Baso # Seg Neutrophils % Seg Neuts % (Manual) Lymphocytes % (Manual) Monocytes % (Manual) Seg Neutrophils # Seg Neutrophils # Man Lymphocytes # (Manual) Monocytes # (Manual) Basophils # (Manual) Percent Retic PT INR APTT Heparin Anti-Xa Level POC ABG pH POC ABG pCO2 POC ABG pO2 Sodium Potassium Chloride Carbon Dioxide BUN Creatinine Glucose POC Glucose 283 H 306 H 354 H Calcium Phosphorus Iron TIBC Lactate Dehydrogenase Total Creatine Kinase NT-Pro-B Natriuret Pep Total Protein Albumin Yaayd-8-Nammtxtcf Eccze-9-Kcfzpntcx Beta Globulins PEP Interpretation Cholesterol LDL Cholesterol Direct Vitamin B12 Urine WBC (Auto) Urine Creatinine Crossmatch 04/10/16 04/10/16 04/10/16 00:53 07:15 07:34 WBC RBC Hgb 11.3 L Hct MCV MCH MCHC RDW Plt Count Lymph % (Auto) [place] % (Auto) Lymph # [place] # Baso # Seg Neutrophils % Seg Neuts % (Manual) Lymphocytes % (Manual) Monocytes % (Manual) Seg Neutrophils # Seg Neutrophils # Man Lymphocytes # (Manual) Monocytes # (Manual) Basophils # (Manual) Percent Retic PT INR APTT Heparin Anti-Xa Level POC ABG pH POC ABG pCO2 POC ABG pO2 Sodium Potassium Chloride Carbon Dioxide BUN Creatinine Glucose POC Glucose 323 H 311 H Calcium Phosphorus Iron TIBC Lactate Dehydrogenase Total Creatine Kinase NT-Pro-B Natriuret Pep Total Protein Albumin Bwvzc-4-Mgzjyghad Dojwo-4-Rnurrgwyu Beta Globulins PEP Interpretation Cholesterol LDL Cholesterol Direct Vitamin B12 Urine WBC (Auto) Urine Creatinine Crossmatch 04/10/16 04/10/16 04/10/16 07:34 07:34 11:25 WBC RBC Hgb Hct MCV MCH MCHC RDW Plt Count Lymph % (Auto) [place] % (Auto) Lymph # [place] # Baso # Seg Neutrophils % Seg Neuts % (Manual) Lymphocytes % (Manual) Monocytes % (Manual) Seg Neutrophils # Seg Neutrophils # Man Lymphocytes # (Manual) Monocytes # (Manual) Basophils # (Manual) Percent Retic PT 17.3 H INR 1.42 H APTT Heparin Anti-Xa Level POC ABG pH POC ABG pCO2 POC ABG pO2 Sodium 158 H Potassium Chloride 118.6 H Carbon Dioxide BUN 30 H Creatinine Glucose 330 H POC Glucose 335 H Calcium 8.3 L Phosphorus Iron TIBC Lactate Dehydrogenase Total Creatine Kinase NT-Pro-B Natriuret Pep Total Protein Albumin Vjloy-0-Izrvogtzq Retrj-9-Oeadygxsr Beta Globulins PEP Interpretation Cholesterol LDL Cholesterol Direct Vitamin B12 Urine WBC (Auto) Urine Creatinine Crossmatch 04/10/16 04/11/16 04/11/16 16:21 00:29 07:47 WBC RBC Hgb Hct MCV MCH MCHC RDW Plt Count Lymph % (Auto) [place] % (Auto) Lymph # [place] # Baso # Seg Neutrophils % Seg Neuts % (Manual) Lymphocytes % (Manual) Monocytes % (Manual) Seg Neutrophils # Seg Neutrophils # Man Lymphocytes # (Manual) Monocytes # (Manual) Basophils # (Manual) Percent Retic PT 18.4 H INR 1.53 H APTT Heparin Anti-Xa Level POC ABG pH POC ABG pCO2 POC ABG pO2 Sodium Potassium Chloride Carbon Dioxide BUN Creatinine Glucose POC Glucose 230 H 162 H Calcium Phosphorus Iron TIBC Lactate Dehydrogenase Total Creatine Kinase NT-Pro-B Natriuret Pep Total Protein Albumin Ghtdf-9-Xdvwhmfnx Xvyay-7-Uhlwzoqeo Beta Globulins PEP Interpretation Cholesterol LDL Cholesterol Direct Vitamin B12 Urine WBC (Auto) Urine Creatinine Crossmatch 04/11/16 04/11/16 04/12/16 07:47 11:22 04:54 WBC RBC Hgb 11.0 L Hct 35.0 L MCV MCH MCHC RDW Plt Count Lymph % (Auto) [place] % (Auto) Lymph # [place] # Baso # Seg Neutrophils % Seg Neuts % (Manual) Lymphocytes % (Manual) Monocytes % (Manual) Seg Neutrophils # Seg Neutrophils # Man Lymphocytes # (Manual) Monocytes # (Manual) Basophils # (Manual) Percent Retic PT INR APTT Heparin Anti-Xa Level POC ABG pH POC ABG pCO2 POC ABG pO2 Sodium 155 H Potassium Chloride 114.5 H Carbon Dioxide BUN 23 H Creatinine Glucose 157 H POC Glucose 229 H Calcium Phosphorus Iron TIBC Lactate Dehydrogenase Total Creatine Kinase NT-Pro-B Natriuret Pep Total Protein Albumin [id number] Kista-[id number] Beta Globulins PEP Interpretation Cholesterol LDL Cholesterol Direct Vitamin B12 Urine WBC (Auto) Urine Creatinine Crossmatch 04/12/16 04/12/16 04/12/16 04:54 04:54 05:57 WBC RBC Hgb Hct MCV MCH MCHC RDW Plt Count Lymph % (Auto) [place] % (Auto) Lymph # [place] # Baso # Seg Neutrophils % Seg Neuts % (Manual) Lymphocytes % (Manual) Monocytes % (Manual) Seg Neutrophils # Seg Neutrophils # Man Lymphocytes # (Manual) Monocytes # (Manual) Basophils # (Manual) Percent Retic PT 22.5 H INR 1.98 H APTT Heparin Anti-Xa Level 0.19 L POC ABG pH POC ABG pCO2 POC ABG pO2 Sodium 156 H Potassium Chloride 115.4 H Carbon Dioxide BUN 23 H Creatinine Glucose 143 H POC Glucose 194 H Calcium Phosphorus Iron TIBC Lactate Dehydrogenase Total Creatine Kinase NT-Pro-B Natriuret Pep Total Protein Albumin Fcgne-6-Cdncpatzu Gwgcr-2-Hbswvndno Beta Globulins PEP Interpretation Cholesterol LDL Cholesterol Direct Vitamin B12 Urine WBC (Auto) Urine Creatinine Crossmatch 04/12/16 04/12/16 04/12/16 12:34 19:01 23:30 WBC RBC Hgb Hct MCV MCH MCHC RDW Plt Count Lymph % (Auto) [place] % (Auto) Lymph # [place] # Baso # Seg Neutrophils % Seg Neuts % (Manual) Lymphocytes % (Manual) Monocytes % (Manual) Seg Neutrophils # Seg Neutrophils # Man Lymphocytes # (Manual) Monocytes # (Manual) Basophils # (Manual) Percent Retic PT INR APTT Heparin Anti-Xa Level POC ABG pH POC ABG pCO2 POC ABG pO2 Sodium Potassium Chloride Carbon Dioxide BUN Creatinine Glucose POC Glucose 291 H 235 H 154 H Calcium Phosphorus Iron TIBC Lactate Dehydrogenase Total Creatine Kinase NT-Pro-B Natriuret Pep Total Protein Albumin Ivuky-3-Qbczqlhqy Nsnlq-0-Rflqppell Beta Globulins PEP Interpretation Cholesterol LDL Cholesterol Direct Vitamin B12 Urine WBC (Auto) Urine Creatinine Crossmatch 04/13/16 04/13/16 04/13/16 05:16 05:16 05:28 WBC RBC Hgb Hct MCV MCH MCHC RDW Plt Count Lymph % (Auto) [place] % (Auto) Lymph # [place] # Baso # Seg Neutrophils % Seg Neuts % (Manual) Lymphocytes % (Manual) Monocytes % (Manual) Seg Neutrophils # Seg Neutrophils # Man Lymphocytes # (Manual) Monocytes # (Manual) Basophils # (Manual) Percent Retic PT 27.0 H INR 2.49 H APTT Heparin Anti-Xa Level 0.20 L POC ABG pH POC ABG pCO2 POC ABG pO2 Sodium 150 H Potassium Chloride 110.5 H Carbon Dioxide BUN 21 H Creatinine Glucose 159 H POC Glucose 177 H Calcium Phosphorus Iron TIBC Lactate Dehydrogenase Total Creatine Kinase NT-Pro-B Natriuret Pep Total Protein Albumin Qupsz-9-Oredwbsnr Efewx-2-Facflgzlq Beta Globulins PEP Interpretation Cholesterol LDL Cholesterol Direct Vitamin B12 Urine WBC (Auto) Urine Creatinine Crossmatch 04/13/16 04/13/16 04/14/16 11:30 17:54 00:44 WBC RBC Hgb Hct MCV MCH MCHC RDW Plt Count Lymph % (Auto) [place] % (Auto) Lymph # [place] # Baso # Seg Neutrophils % Seg Neuts % (Manual) Lymphocytes % (Manual) Monocytes % (Manual) Seg Neutrophils # Seg Neutrophils # Man Lymphocytes # (Manual) Monocytes # (Manual) Basophils # (Manual) Percent Retic PT INR APTT Heparin Anti-Xa Level POC ABG pH POC ABG pCO2 POC ABG pO2 Sodium Potassium Chloride Carbon Dioxide BUN Creatinine Glucose POC Glucose 181 H 251 H 237 H Calcium Phosphorus Iron TIBC Lactate Dehydrogenase Total Creatine Kinase NT-Pro-B Natriuret Pep Total Protein Albumin Nkpfq-9-Tuuwsedbo Onhhh-8-Prpnxjgwu Beta Globulins PEP Interpretation Cholesterol LDL Cholesterol Direct Vitamin B12 Urine WBC (Auto) Urine Creatinine Crossmatch 04/14/16 04/14/16 04/14/16 05:00 05:42 05:42 WBC RBC Hgb Hct MCV MCH MCHC RDW Plt Count Lymph % (Auto) [place] % (Auto) Lymph # [place] # Baso # Seg Neutrophils % Seg Neuts % (Manual) Lymphocytes % (Manual) Monocytes % (Manual) Seg Neutrophils # Seg Neutrophils # Man Lymphocytes # (Manual) Monocytes # (Manual) Basophils # (Manual) Percent Retic PT 30.3 H INR 2.88 H APTT Heparin Anti-Xa Level 0.27 L POC ABG pH POC ABG pCO2 POC ABG pO2 Sodium Potassium 3.5 L Chloride Carbon Dioxide BUN Creatinine Glucose 160 H POC Glucose Calcium 8.2 L Phosphorus Iron TIBC Lactate Dehydrogenase Total Creatine Kinase NT-Pro-B Natriuret Pep Total Protein Albumin Isqie-2-Csiblffma Bxtif-7-Mqgwjyosg Beta Globulins PEP Interpretation Cholesterol LDL Cholesterol Direct Vitamin B12 Urine WBC (Auto) Urine Creatinine Crossmatch 04/14/16 04/14/16 04/14/16 06:02 06:16 09:18 WBC 12.3 H RBC Hgb 11.4 L Hct MCV 82 L MCH 26 L MCHC RDW Plt Count Lymph % (Auto) [place] % (Auto) Lymph # [place] # Baso # Seg Neutrophils % Seg Neuts % (Manual) Lymphocytes % (Manual) Monocytes % (Manual) Seg Neutrophils # Seg Neutrophils # Man Lymphocytes # (Manual) Monocytes # (Manual) Basophils # (Manual) Percent Retic PT INR APTT Heparin Anti-Xa Level POC ABG pH POC ABG pCO2 POC ABG pO2 Sodium Potassium Chloride Carbon Dioxide BUN Creatinine Glucose POC Glucose 156 H 164 H Calcium Phosphorus Iron TIBC Lactate Dehydrogenase Total Creatine Kinase NT-Pro-B Natriuret Pep Total Protein Albumin Heuhf-4-Nzrttgwnc Worgo-9-Oxxpgsqsd Beta Globulins PEP Interpretation Cholesterol LDL Cholesterol Direct Vitamin B12 Urine WBC (Auto) Urine Creatinine Crossmatch 04/14/16 04/15/16 04/15/16 13:58 01:07 06:04 WBC RBC Hgb Hct MCV MCH MCHC RDW Plt Count Lymph % (Auto) [place] % (Auto) Lymph # [place] # Baso # Seg Neutrophils % Seg Neuts % (Manual) Lymphocytes % (Manual) Monocytes % (Manual) Seg Neutrophils # Seg Neutrophils # Man Lymphocytes # (Manual) Monocytes # (Manual) Basophils # (Manual) Percent Retic PT 24.9 H INR 2.25 H APTT Heparin Anti-Xa Level POC ABG pH POC ABG pCO2 POC ABG pO2 Sodium Potassium Chloride Carbon Dioxide BUN Creatinine Glucose POC Glucose 109 H 154 H Calcium Phosphorus Iron TIBC Lactate Dehydrogenase Total Creatine Kinase NT-Pro-B Natriuret Pep Total Protein Albumin Nqrsb-0-Njrkqihjs Iocwn-8-Lpjfszssl Beta Globulins PEP Interpretation Cholesterol LDL Cholesterol Direct Vitamin B12 Urine WBC (Auto) Urine Creatinine Crossmatch 04/15/16 04/15/16 04/16/16 06:08 12:41 00:38 WBC RBC Hgb Hct MCV MCH MCHC RDW Plt Count Lymph % (Auto) [place] % (Auto) Lymph # [place] # Baso # Seg Neutrophils % Seg Neuts % (Manual) Lymphocytes % (Manual) Monocytes % (Manual) Seg Neutrophils # Seg Neutrophils # Man Lymphocytes # (Manual) Monocytes # (Manual) Basophils # (Manual) Percent Retic PT INR APTT Heparin Anti-Xa Level POC ABG pH POC ABG pCO2 POC ABG pO2 Sodium Potassium Chloride Carbon Dioxide BUN Creatinine Glucose POC Glucose 165 H 223 H 216 H Calcium Phosphorus Iron TIBC Lactate Dehydrogenase Total Creatine Kinase NT-Pro-B Natriuret Pep Total Protein Albumin Ilqqo-8-Rhfsahpki Sotxa-5-Rwtzkjnjy Beta Globulins PEP Interpretation Cholesterol LDL Cholesterol Direct Vitamin B12 Urine WBC (Auto) Urine Creatinine Crossmatch 04/16/16 04/16/16 04/16/16 05:45 07:09 14:00 WBC RBC Hgb Hct MCV MCH MCHC RDW Plt Count Lymph % (Auto) [place] % (Auto) Lymph # [place] # Baso # Seg Neutrophils % Seg Neuts % (Manual) Lymphocytes % (Manual) Monocytes % (Manual) Seg Neutrophils # Seg Neutrophils # Man Lymphocytes # (Manual) Monocytes # (Manual) Basophils # (Manual) Percent Retic PT 19.4 H INR 1.64 H APTT Heparin Anti-Xa Level 0.10 L POC ABG pH POC ABG pCO2 POC ABG pO2 Sodium Potassium Chloride Carbon Dioxide BUN Creatinine Glucose POC Glucose 207 H 69 L Calcium Phosphorus Iron TIBC Lactate Dehydrogenase Total Creatine Kinase NT-Pro-B Natriuret Pep Total Protein Albumin Nnqde-8-Rieyrvhpy Trtxv-1-Iywdxroje Beta Globulins PEP Interpretation Cholesterol LDL Cholesterol Direct Vitamin B12 Urine WBC (Auto) Urine Creatinine Crossmatch 04/16/16 04/16/16 04/16/16 17:40 17:52 19:38 WBC RBC Hgb Hct MCV MCH MCHC RDW Plt Count Lymph % (Auto) [place] % (Auto) Lymph # [place] # Baso # Seg Neutrophils % Seg Neuts % (Manual) Lymphocytes % (Manual) Monocytes % (Manual) Seg Neutrophils # Seg Neutrophils # Man Lymphocytes # (Manual) Monocytes # (Manual) Basophils # (Manual) Percent Retic PT INR APTT Heparin Anti-Xa Level 0.26 L POC ABG pH 7.543 H 7.488 H POC ABG pCO2 26.3 L 30.3 L POC ABG pO2 55 L 203 H Sodium Potassium Chloride Carbon Dioxide BUN Creatinine Glucose POC Glucose Calcium Phosphorus Iron TIBC Lactate Dehydrogenase Total Creatine Kinase NT-Pro-B Natriuret Pep Total Protein Albumin Irhjn-3-Anftphepm Qavjy-7-Dyaqjyslm Beta Globulins PEP Interpretation Cholesterol LDL Cholesterol Direct Vitamin B12 Urine WBC (Auto) Urine Creatinine Crossmatch 04/17/16 04/17/16 04/17/16 00:04 05:10 05:36 WBC RBC Hgb Hct MCV MCH MCHC RDW Plt Count Lymph % (Auto) [place] % (Auto) Lymph # [place] # Baso # Seg Neutrophils % Seg Neuts % (Manual) Lymphocytes % (Manual) Monocytes % (Manual) Seg Neutrophils # Seg Neutrophils # Man Lymphocytes # (Manual) Monocytes # (Manual) Basophils # (Manual) Percent Retic PT INR APTT Heparin Anti-Xa Level POC ABG pH POC ABG pCO2 32.7 L POC ABG pO2 68 L Sodium Potassium Chloride Carbon Dioxide BUN Creatinine Glucose POC Glucose 113 H 161 H Calcium Phosphorus Iron TIBC Lactate Dehydrogenase Total Creatine Kinase NT-Pro-B Natriuret Pep Total Protein Albumin Zemab-9-Vddjlytsc Veezh-6-Eirlyxpko Beta Globulins PEP Interpretation Cholesterol LDL Cholesterol Direct Vitamin B12 Urine WBC (Auto) Urine Creatinine Crossmatch 04/17/16 04/17/16 04/17/16 05:41 08:37 11:46 WBC RBC Hgb Hct MCV MCH MCHC RDW Plt Count Lymph % (Auto) [place] % (Auto) Lymph # [place] # Baso # Seg Neutrophils % Seg Neuts % (Manual) Lymphocytes % (Manual) Monocytes % (Manual) Seg Neutrophils # Seg Neutrophils # Man Lymphocytes # (Manual) Monocytes # (Manual) Basophils # (Manual) Percent Retic PT 17.4 H INR 1.43 H APTT Heparin Anti-Xa Level POC ABG pH POC ABG pCO2 POC ABG pO2 Sodium Potassium Chloride Carbon Dioxide BUN Creatinine Glucose POC Glucose 154 H 138 H Calcium Phosphorus Iron TIBC Lactate Dehydrogenase Total Creatine Kinase NT-Pro-B Natriuret Pep Total Protein Albumin Zqpql-2-Iuftafxzf Eghkt-1-Dxnvfurnn Beta Globulins PEP Interpretation Cholesterol LDL Cholesterol Direct Vitamin B12 Urine WBC (Auto) Urine Creatinine Crossmatch 04/17/16 04/17/16 04/17/16 12:17 12:17 21:20 WBC 16.5 H RBC 3.31 L Hgb 8.8 L Hct 26.9 L MCV 81 L MCH 27 L MCHC RDW 15.5 H Plt Count Lymph % (Auto) [place] % (Auto) Lymph # [place] # Baso # Seg Neutrophils % Seg Neuts % (Manual) Lymphocytes % (Manual) 3.0 L Monocytes % (Manual) Seg Neutrophils # Seg Neutrophils # Man 10.1 H Lymphocytes # (Manual) 0.5 L Monocytes # (Manual) Basophils # (Manual) Percent Retic PT INR APTT Heparin Anti-Xa Level 0.14 L POC ABG pH POC ABG pCO2 POC ABG pO2 Sodium Potassium Chloride Carbon Dioxide 21 L BUN 38 H Creatinine 1.8 H D Glucose 131 H POC Glucose Calcium 7.6 L Phosphorus Iron TIBC Lactate Dehydrogenase Total Creatine Kinase NT-Pro-B Natriuret Pep Total Protein Albumin Zgsau-6-Qtxrimqgl Uujvh-9-Iftouhvgq Beta Globulins PEP Interpretation Cholesterol LDL Cholesterol Direct Vitamin B12 Urine WBC (Auto) Urine Creatinine Crossmatch 04/17/16 04/17/16 04/18/16 23:38 23:41 00:21 WBC RBC Hgb Hct MCV MCH MCHC RDW Plt Count Lymph % (Auto) [place] % (Auto) Lymph # [place] # Baso # Seg Neutrophils % Seg Neuts % (Manual) Lymphocytes % (Manual) Monocytes % (Manual) Seg Neutrophils # Seg Neutrophils # Man Lymphocytes # (Manual) Monocytes # (Manual) Basophils # (Manual) Percent Retic PT INR APTT Heparin Anti-Xa Level POC ABG pH POC ABG pCO2 POC ABG pO2 Sodium Potassium Chloride Carbon Dioxide BUN Creatinine Glucose POC Glucose < 40 L < 40 L 223 H Calcium Phosphorus Iron TIBC Lactate Dehydrogenase Total Creatine Kinase NT-Pro-B Natriuret Pep Total Protein Albumin Zcfsq-9-Kingjsnnd Imdev-1-Sgxntoirb Beta Globulins PEP Interpretation Cholesterol LDL Cholesterol Direct Vitamin B12 Urine WBC (Auto) Urine Creatinine Crossmatch 04/18/16 04/18/16 04/18/16 05:01 05:20 05:20 WBC 17.6 H RBC 3.44 L Hgb 9.1 L Hct 27.8 L MCV 81 L MCH 26 L MCHC RDW 15.5 H Plt Count Lymph % (Auto) 2.7 L [place] % (Auto) 8.3 H Lymph # 0.5 L [place] # 1.5 H Baso # Seg Neutrophils % 88.4 H Seg Neuts % (Manual) Lymphocytes % (Manual) Monocytes % (Manual) Seg Neutrophils # 15.6 H Seg Neutrophils # Man Lymphocytes # (Manual) Monocytes # (Manual) Basophils # (Manual) Percent Retic PT 17.4 H INR 1.43 H APTT Heparin Anti-Xa Level POC ABG pH 7.528 H POC ABG pCO2 27.9 L POC ABG pO2 Sodium Potassium Chloride Carbon Dioxide BUN Creatinine Glucose POC Glucose Calcium Phosphorus Iron TIBC Lactate Dehydrogenase Total Creatine Kinase NT-Pro-B Natriuret Pep Total Protein Albumin Oyatq-0-Uncocaqst Zksyr-1-Ctehpxmwf Beta Globulins PEP Interpretation Cholesterol LDL Cholesterol Direct Vitamin B12 Urine WBC (Auto) Urine Creatinine Crossmatch 04/18/16 04/18/16 04/18/16 05:20 05:31 06:50 WBC RBC Hgb Hct MCV MCH MCHC RDW Plt Count Lymph % (Auto) [place] % (Auto) Lymph # [place] # Baso # Seg Neutrophils % Seg Neuts % (Manual) Lymphocytes % (Manual) Monocytes % (Manual) Seg Neutrophils # Seg Neutrophils # Man Lymphocytes # (Manual) Monocytes # (Manual) Basophils # (Manual) Percent Retic PT INR APTT Heparin Anti-Xa Level POC ABG pH POC ABG pCO2 POC ABG pO2 Sodium Potassium 3.4 L Chloride Carbon Dioxide 21 L BUN 22 H Creatinine Glucose POC Glucose 61 L 124 H Calcium 8.0 L Phosphorus Iron TIBC Lactate Dehydrogenase Total Creatine Kinase NT-Pro-B Natriuret Pep Total Protein Albumin Yndic-4-Zfpcftlvh Whymv-6-Dhhsyagsz Beta Globulins PEP Interpretation Cholesterol LDL Cholesterol Direct Vitamin B12 Urine WBC (Auto) Urine Creatinine Crossmatch 04/18/16 04/18/16 04/19/16 17:42 22:40 00:31 WBC RBC Hgb Hct MCV MCH MCHC RDW Plt Count Lymph % (Auto) [place] % (Auto) Lymph # [place] # Baso # Seg Neutrophils % Seg Neuts % (Manual) Lymphocytes % (Manual) Monocytes % (Manual) Seg Neutrophils # Seg Neutrophils # Man Lymphocytes # (Manual) Monocytes # (Manual) Basophils # (Manual) Percent Retic PT INR APTT Heparin Anti-Xa Level < 0.10 L POC ABG pH POC ABG pCO2 POC ABG pO2 Sodium Potassium Chloride Carbon Dioxide BUN Creatinine Glucose POC Glucose 159 H 134 H Calcium Phosphorus Iron TIBC Lactate Dehydrogenase Total Creatine Kinase NT-Pro-B Natriuret Pep Total Protein Albumin Czubl-4-Qsdwdpwpj Lclay-3-Uowezaobz Beta Globulins PEP Interpretation Cholesterol LDL Cholesterol Direct Vitamin B12 Urine WBC (Auto) Urine Creatinine Crossmatch 04/19/16 04/19/16 04/19/16 04:18 04:18 04:25 WBC 19.0 H RBC 3.58 L Hgb 9.3 L Hct 28.8 L MCV 80 L MCH 26 L MCHC RDW 15.5 H Plt Count Lymph % (Auto) 2.8 L [place] % (Auto) 7.4 H Lymph # 0.5 L [place] # 1.4 H Baso # Seg Neutrophils % 89.4 H Seg Neuts % (Manual) Lymphocytes % (Manual) Monocytes % (Manual) Seg Neutrophils # 17.0 H Seg Neutrophils # Man Lymphocytes # (Manual) Monocytes # (Manual) Basophils # (Manual) Percent Retic PT INR APTT Heparin Anti-Xa Level POC ABG pH 7.527 H POC ABG pCO2 27.1 L POC ABG pO2 Sodium Potassium Chloride Carbon Dioxide BUN 22 H Creatinine Glucose 215 H POC Glucose Calcium 8.0 L Phosphorus Iron TIBC Lactate Dehydrogenase Total Creatine Kinase NT-Pro-B Natriuret Pep Total Protein Albumin Rdegi-2-Azfyxhkku Exvmy-8-Jmwcequgz Beta Globulins PEP Interpretation Cholesterol LDL Cholesterol Direct Vitamin B12 Urine WBC (Auto) Urine Creatinine Crossmatch 04/19/16 04/19/16 04/19/16 05:45 08:10 14:08 WBC RBC Hgb Hct MCV MCH MCHC RDW Plt Count Lymph % (Auto) [place] % (Auto) Lymph # [place] # Baso # Seg Neutrophils % Seg Neuts % (Manual) Lymphocytes % (Manual) Monocytes % (Manual) Seg Neutrophils # Seg Neutrophils # Man Lymphocytes # (Manual) Monocytes # (Manual) Basophils # (Manual) Percent Retic PT 22.1 H INR 1.93 H APTT Heparin Anti-Xa Level 0.17 L POC ABG pH POC ABG pCO2 POC ABG pO2 Sodium Potassium Chloride Carbon Dioxide BUN Creatinine Glucose POC Glucose 196 H 318 H Calcium Phosphorus Iron TIBC Lactate Dehydrogenase Total Creatine Kinase NT-Pro-B Natriuret Pep Total Protein Albumin Zcpki-6-Vvauzuksq Dkkos-2-Dpctjdrbe Beta Globulins PEP Interpretation Cholesterol LDL Cholesterol Direct Vitamin B12 Urine WBC (Auto) Urine Creatinine Crossmatch 04/19/16 04/20/16 04/20/16 17:27 03:55 03:55 WBC 18.5 H RBC 3.19 L Hgb 8.4 L Hct 25.7 L MCV 80 L MCH 26 L MCHC RDW 15.9 H Plt Count Lymph % (Auto) 4.3 L [place] % (Auto) 10.1 H Lymph # 0.8 L [place] # 1.9 H Baso # Seg Neutrophils % 85.2 H Seg Neuts % (Manual) Lymphocytes % (Manual) Monocytes % (Manual) Seg Neutrophils # 15.8 H Seg Neutrophils # Man Lymphocytes # (Manual) Monocytes # (Manual) Basophils # (Manual) Percent Retic PT 22.0 H INR 1.92 H APTT Heparin Anti-Xa Level 0.14 L POC ABG pH POC ABG pCO2 POC ABG pO2 Sodium Potassium Chloride Carbon Dioxide BUN Creatinine Glucose POC Glucose 230 H Calcium Phosphorus Iron TIBC Lactate Dehydrogenase Total Creatine Kinase NT-Pro-B Natriuret Pep Total Protein Albumin Hjgbx-2-Vzvmhiqsa Neybk-4-Bzgsnpgur Beta Globulins PEP Interpretation Cholesterol LDL Cholesterol Direct Vitamin B12 Urine WBC (Auto) Urine Creatinine Crossmatch 04/20/16 04/20/16 04/20/16 03:55 04:16 05:52 WBC RBC Hgb Hct MCV MCH MCHC RDW Plt Count Lymph % (Auto) [place] % (Auto) Lymph # [place] # Baso # Seg Neutrophils % Seg Neuts % (Manual) Lymphocytes % (Manual) Monocytes % (Manual) Seg Neutrophils # Seg Neutrophils # Man Lymphocytes # (Manual) Monocytes # (Manual) Basophils # (Manual) Percent Retic PT INR APTT Heparin Anti-Xa Level POC ABG pH 7.474 H POC ABG pCO2 26.5 L POC ABG pO2 Sodium Potassium Chloride Carbon Dioxide 18 L BUN 38 H Creatinine 2.7 H D Glucose 159 H POC Glucose 214 H Calcium 8.0 L Phosphorus Iron TIBC Lactate Dehydrogenase Total Creatine Kinase NT-Pro-B Natriuret Pep Total Protein Albumin Sjdjj-9-Hffshurqs Ebkdr-7-Bibvcsbvy Beta Globulins PEP Interpretation Cholesterol LDL Cholesterol Direct Vitamin B12 Urine WBC (Auto) Urine Creatinine Crossmatch 04/20/16 04/20/16 04/20/16 10:32 11:27 11:50 WBC RBC Hgb Hct MCV MCH MCHC RDW Plt Count Lymph % (Auto) [place] % (Auto) Lymph # [place] # Baso # Seg Neutrophils % Seg Neuts % (Manual) Lymphocytes % (Manual) Monocytes % (Manual) Seg Neutrophils # Seg Neutrophils # Man Lymphocytes # (Manual) Monocytes # (Manual) Basophils # (Manual) Percent Retic PT INR APTT Heparin Anti-Xa Level POC ABG pH POC ABG pCO2 POC ABG pO2 Sodium Potassium Chloride Carbon Dioxide 20 L BUN 45 H Creatinine 3.0 H Glucose 215 H POC Glucose 248 H Calcium 8.0 L Phosphorus Iron TIBC Lactate Dehydrogenase Total Creatine Kinase NT-Pro-B Natriuret Pep Total Protein Albumin Bmpah-4-Asnpnecfu Sfhzu-0-Futbpzysn Beta Globulins PEP Interpretation Cholesterol LDL Cholesterol Direct Vitamin B12 Urine WBC (Auto) Urine Creatinine 85.5 H Crossmatch 04/20/16 04/21/16 04/21/16 16:59 00:13 04:29 WBC RBC Hgb Hct MCV MCH MCHC RDW Plt Count Lymph % (Auto) [place] % (Auto) Lymph # [place] # Baso # Seg Neutrophils % Seg Neuts % (Manual) Lymphocytes % (Manual) Monocytes % (Manual) Seg Neutrophils # Seg Neutrophils # Man Lymphocytes # (Manual) Monocytes # (Manual) Basophils # (Manual) Percent Retic PT 18.1 H INR 1.50 H APTT Heparin Anti-Xa Level 0.10 L POC ABG pH POC ABG pCO2 POC ABG pO2 Sodium Potassium Chloride Carbon Dioxide BUN Creatinine Glucose POC Glucose 312 H 287 H Calcium Phosphorus Iron TIBC Lactate Dehydrogenase Total Creatine Kinase NT-Pro-B Natriuret Pep Total Protein Albumin Dgaej-9-Jbxmbqdwl Pofrq-9-Atpsuxwdf Beta Globulins PEP Interpretation Cholesterol LDL Cholesterol Direct Vitamin B12 Urine WBC (Auto) Urine Creatinine Crossmatch 04/21/16 04/21/16 04/21/16 04:29 04:29 04:55 WBC 15.4 H RBC 3.24 L Hgb 8.4 L Hct 25.6 L MCV 79 L MCH 26 L MCHC RDW 16.1 H Plt Count Lymph % (Auto) 6.8 L [place] % (Auto) 12.9 H Lymph # 1.0 L [place] # 2.0 H Baso # Seg Neutrophils % 79.8 H Seg Neuts % (Manual) Lymphocytes % (Manual) Monocytes % (Manual) Seg Neutrophils # 12.3 H Seg Neutrophils # Man Lymphocytes # (Manual) Monocytes # (Manual) Basophils # (Manual) Percent Retic PT INR APTT Heparin Anti-Xa Level POC ABG pH 7.512 H POC ABG pCO2 25.4 L POC ABG pO2 Sodium 135 L Potassium Chloride Carbon Dioxide 18 L BUN 57 H Creatinine 3.9 H Glucose 202 H POC Glucose Calcium 8.0 L Phosphorus Iron TIBC Lactate Dehydrogenase Total Creatine Kinase NT-Pro-B Natriuret Pep Total Protein Albumin Rwiny-2-Dipuyyzmx Mkxca-9-Jzgbyvufb Beta Globulins PEP Interpretation Cholesterol LDL Cholesterol Direct Vitamin B12 Urine WBC (Auto) Urine Creatinine Crossmatch 04/21/16 04/21/16 04/21/16 05:20 12:08 12:16 WBC RBC Hgb Hct MCV MCH MCHC RDW Plt Count Lymph % (Auto) [place] % (Auto) Lymph # [place] # Baso # Seg Neutrophils % Seg Neuts % (Manual) Lymphocytes % (Manual) Monocytes % (Manual) Seg Neutrophils # Seg Neutrophils # Man Lymphocytes # (Manual) Monocytes # (Manual) Basophils # (Manual) Percent Retic PT INR APTT Heparin Anti-Xa Level 0.16 L POC ABG pH POC ABG pCO2 POC ABG pO2 Sodium Potassium Chloride Carbon Dioxide BUN Creatinine Glucose POC Glucose 203 H 221 H Calcium Phosphorus Iron TIBC Lactate Dehydrogenase Total Creatine Kinase NT-Pro-B Natriuret Pep Total Protein Albumin Ltcee-7-Mtzlcykbu Nvanw-1-Tyivixhmx Beta Globulins PEP Interpretation Cholesterol LDL Cholesterol Direct Vitamin B12 Urine WBC (Auto) Urine Creatinine Crossmatch 04/21/16 04/22/16 04/22/16 17:22 05:01 05:20 WBC RBC Hgb Hct MCV MCH MCHC RDW Plt Count Lymph % (Auto) [place] % (Auto) Lymph # [place] # Baso # Seg Neutrophils % Seg Neuts % (Manual) Lymphocytes % (Manual) Monocytes % (Manual) Seg Neutrophils # Seg Neutrophils # Man Lymphocytes # (Manual) Monocytes # (Manual) Basophils # (Manual) Percent Retic PT 17.5 H INR 1.44 H APTT Heparin Anti-Xa Level POC ABG pH 7.460 H POC ABG pCO2 27.9 L POC ABG pO2 Sodium Potassium Chloride Carbon Dioxide BUN Creatinine Glucose POC Glucose 189 H Calcium Phosphorus Iron TIBC Lactate Dehydrogenase Total Creatine Kinase NT-Pro-B Natriuret Pep Total Protein Albumin Kdmns-6-Dwxdoekfe Kycfb-3-Bltfzrcpr Beta Globulins PEP Interpretation Cholesterol LDL Cholesterol Direct Vitamin B12 Urine WBC (Auto) Urine Creatinine Crossmatch 04/22/16 04/22/16 04/22/16 05:43 06:40 08:08 WBC RBC Hgb Hct MCV MCH MCHC RDW Plt Count Lymph % (Auto) [place] % (Auto) Lymph # [place] # Baso # Seg Neutrophils % Seg Neuts % (Manual) Lymphocytes % (Manual) Monocytes % (Manual) Seg Neutrophils # Seg Neutrophils # Man Lymphocytes # (Manual) Monocytes # (Manual) Basophils # (Manual) Percent Retic PT INR APTT Heparin Anti-Xa Level POC ABG pH POC ABG pCO2 POC ABG pO2 Sodium Potassium Chloride Carbon Dioxide BUN Creatinine Glucose POC Glucose 56 L 136 H 134 H Calcium Phosphorus Iron TIBC Lactate Dehydrogenase Total Creatine Kinase NT-Pro-B Natriuret Pep Total Protein Albumin Gtgyw-4-Asadrfedq Xhfkc-9-Tfxljpvuf Beta Globulins PEP Interpretation Cholesterol LDL Cholesterol Direct Vitamin B12 Urine WBC (Auto) Urine Creatinine Crossmatch 04/22/16 04/22/16 04/22/16 11:18 12:10 18:17 WBC RBC Hgb Hct MCV MCH MCHC RDW Plt Count Lymph % (Auto) [place] % (Auto) Lymph # [place] # Baso # Seg Neutrophils % Seg Neuts % (Manual) Lymphocytes % (Manual) Monocytes % (Manual) Seg Neutrophils # Seg Neutrophils # Man Lymphocytes # (Manual) Monocytes # (Manual) Basophils # (Manual) Percent Retic PT INR APTT Heparin Anti-Xa Level 0.12 L POC ABG pH POC ABG pCO2 POC ABG pO2 Sodium Potassium Chloride Carbon Dioxide BUN Creatinine Glucose POC Glucose 142 H 227 H Calcium Phosphorus Iron TIBC Lactate Dehydrogenase Total Creatine Kinase NT-Pro-B Natriuret Pep Total Protein Albumin Zpnri-7-Bemmhenjo Zbswp-8-Swpynvjdu Beta Globulins PEP Interpretation Cholesterol LDL Cholesterol Direct Vitamin B12 Urine WBC (Auto) Urine Creatinine Crossmatch 04/22/16 04/22/16 04/23/16 22:28 23:47 04:49 WBC RBC Hgb Hct MCV MCH MCHC RDW Plt Count Lymph % (Auto) [place] % (Auto) Lymph # [place] # Baso # Seg Neutrophils % Seg Neuts % (Manual) Lymphocytes % (Manual) Monocytes % (Manual) Seg Neutrophils # Seg Neutrophils # Man Lymphocytes # (Manual) Monocytes # (Manual) Basophils # (Manual) Percent Retic PT INR APTT Heparin Anti-Xa Level 0.16 L POC ABG pH POC ABG pCO2 32.6 L POC ABG pO2 122 H Sodium Potassium Chloride Carbon Dioxide BUN Creatinine Glucose POC Glucose 266 H Calcium Phosphorus Iron TIBC Lactate Dehydrogenase Total Creatine Kinase NT-Pro-B Natriuret Pep Total Protein Albumin Wadya-0-Kqwwmpcxd Ouizv-8-Qpdazrboa Beta Globulins PEP Interpretation Cholesterol LDL Cholesterol Direct Vitamin B12 Urine WBC (Auto) Urine Creatinine Crossmatch 04/23/16 04/23/16 04/23/16 05:41 08:05 08:34 WBC RBC Hgb Hct MCV MCH MCHC RDW Plt Count Lymph % (Auto) [place] % (Auto) Lymph # [place] # Baso # Seg Neutrophils % Seg Neuts % (Manual) Lymphocytes % (Manual) Monocytes % (Manual) Seg Neutrophils # Seg Neutrophils # Man Lymphocytes # (Manual) Monocytes # (Manual) Basophils # (Manual) Percent Retic PT INR APTT Heparin Anti-Xa Level POC ABG pH POC ABG pCO2 POC ABG pO2 Sodium Potassium Chloride 109.5 H Carbon Dioxide 21 L BUN 23 H Creatinine Glucose 227 H POC Glucose 227 H 224 H Calcium 8.2 L Phosphorus Iron TIBC Lactate Dehydrogenase Total Creatine Kinase NT-Pro-B Natriuret Pep Total Protein Albumin Qpsiy-7-Gfthodset Nxolh-0-Cysksxfmp Beta Globulins PEP Interpretation Cholesterol LDL Cholesterol Direct Vitamin B12 Urine WBC (Auto) Urine Creatinine Crossmatch 04/23/16 04/23/16 04/23/16 10:45 11:37 22:49 WBC RBC Hgb Hct MCV MCH MCHC RDW Plt Count Lymph % (Auto) [place] % (Auto) Lymph # [place] # Baso # Seg Neutrophils % Seg Neuts % (Manual) Lymphocytes % (Manual) Monocytes % (Manual) Seg Neutrophils # Seg Neutrophils # Man Lymphocytes # (Manual) Monocytes # (Manual) Basophils # (Manual) Percent Retic PT 15.9 H INR 1.28 H APTT Heparin Anti-Xa Level 0.12 L POC ABG pH POC ABG pCO2 POC ABG pO2 Sodium Potassium Chloride Carbon Dioxide BUN Creatinine Glucose POC Glucose 256 H Calcium Phosphorus Iron TIBC Lactate Dehydrogenase Total Creatine Kinase NT-Pro-B Natriuret Pep Total Protein Albumin Vqaex-3-Zcxqwdogf Hmmjh-3-Elkqlgryy Beta Globulins PEP Interpretation Cholesterol LDL Cholesterol Direct Vitamin B12 Urine WBC (Auto) Urine Creatinine Crossmatch 04/23/16 04/24/16 04/24/16 23:59 05:29 06:03 WBC RBC Hgb Hct MCV MCH MCHC RDW Plt Count Lymph % (Auto) [place] % (Auto) Lymph # [place] # Baso # Seg Neutrophils % Seg Neuts % (Manual) Lymphocytes % (Manual) Monocytes % (Manual) Seg Neutrophils # Seg Neutrophils # Man Lymphocytes # (Manual) Monocytes # (Manual) Basophils # (Manual) Percent Retic PT INR APTT Heparin Anti-Xa Level POC ABG pH 7.464 H POC ABG pCO2 32.4 L POC ABG pO2 115 H Sodium Potassium Chloride Carbon Dioxide BUN Creatinine Glucose POC Glucose 176 H 256 H Calcium Phosphorus Iron TIBC Lactate Dehydrogenase Total Creatine Kinase NT-Pro-B Natriuret Pep Total Protein Albumin Hdbpy-4-Pperqelac Rolpd-2-Schtpxtba Beta Globulins PEP Interpretation Cholesterol LDL Cholesterol Direct Vitamin B12 Urine WBC (Auto) Urine Creatinine Crossmatch 04/24/16 04/24/16 04/24/16 07:59 12:10 17:17 WBC RBC Hgb Hct MCV MCH MCHC RDW Plt Count Lymph % (Auto) [place] % (Auto) Lymph # [place] # Baso # Seg Neutrophils % Seg Neuts % (Manual) Lymphocytes % (Manual) Monocytes % (Manual) Seg Neutrophils # Seg Neutrophils # Man Lymphocytes # (Manual) Monocytes # (Manual) Basophils # (Manual) Percent Retic PT INR APTT Heparin Anti-Xa Level 0.18 L POC ABG pH POC ABG pCO2 POC ABG pO2 Sodium Potassium Chloride Carbon Dioxide BUN Creatinine Glucose POC Glucose 304 H 325 H Calcium Phosphorus Iron TIBC Lactate Dehydrogenase Total Creatine Kinase NT-Pro-B Natriuret Pep Total Protein Albumin Ihztl-8-Icpjpqyla Ykquj-2-Uzynfrcyv Beta Globulins PEP Interpretation Cholesterol LDL Cholesterol Direct Vitamin B12 Urine WBC (Auto) Urine Creatinine Crossmatch 04/25/16 04/25/16 04/25/16 00:52 06:40 06:44 WBC RBC Hgb Hct MCV MCH MCHC RDW Plt Count Lymph % (Auto) [place] % (Auto) Lymph # [place] # Baso # Seg Neutrophils % Seg Neuts % (Manual) Lymphocytes % (Manual) Monocytes % (Manual) Seg Neutrophils # Seg Neutrophils # Man Lymphocytes # (Manual) Monocytes # (Manual) Basophils # (Manual) Percent Retic PT INR APTT Heparin Anti-Xa Level 0.11 L POC ABG pH POC ABG pCO2 POC ABG pO2 Sodium Potassium Chloride Carbon Dioxide BUN Creatinine Glucose POC Glucose 212 H 184 H Calcium Phosphorus Iron TIBC Lactate Dehydrogenase Total Creatine Kinase NT-Pro-B Natriuret Pep Total Protein Albumin Rhmmb-1-Wizxzvlqi Bvdmb-1-Zpoemeelv Beta Globulins PEP Interpretation Cholesterol LDL Cholesterol Direct Vitamin B12 Urine WBC (Auto) Urine Creatinine Crossmatch 04/25/16 04/25/16 04/25/16 11:40 13:26 17:27 WBC RBC Hgb Hct MCV MCH MCHC RDW Plt Count Lymph % (Auto) [place] % (Auto) Lymph # [place] # Baso # Seg Neutrophils % Seg Neuts % (Manual) Lymphocytes % (Manual) Monocytes % (Manual) Seg Neutrophils # Seg Neutrophils # Man Lymphocytes # (Manual) Monocytes # (Manual) Basophils # (Manual) Percent Retic PT INR APTT Heparin Anti-Xa Level 0.21 L POC ABG pH POC ABG pCO2 POC ABG pO2 Sodium Potassium Chloride Carbon Dioxide BUN Creatinine Glucose POC Glucose 206 H 204 H Calcium Phosphorus Iron TIBC Lactate Dehydrogenase Total Creatine Kinase NT-Pro-B Natriuret Pep Total Protein Albumin Koqrn-6-Ygsqmvkjb Elpqx-9-Ovryxsamy Beta Globulins PEP Interpretation Cholesterol LDL Cholesterol Direct Vitamin B12 Urine WBC (Auto) Urine Creatinine Crossmatch 04/25/16 04/26/16 04/26/16 23:46 06:31 11:51 WBC RBC Hgb Hct MCV MCH MCHC RDW Plt Count Lymph % (Auto) [place] % (Auto) Lymph # [place] # Baso # Seg Neutrophils % Seg Neuts % (Manual) Lymphocytes % (Manual) Monocytes % (Manual) Seg Neutrophils # Seg Neutrophils # Man Lymphocytes # (Manual) Monocytes # (Manual) Basophils # (Manual) Percent Retic PT INR APTT Heparin Anti-Xa Level POC ABG pH POC ABG pCO2 POC ABG pO2 Sodium Potassium Chloride Carbon Dioxide BUN Creatinine Glucose POC Glucose 162 H 148 H 178 H Calcium Phosphorus Iron TIBC Lactate Dehydrogenase Total Creatine Kinase NT-Pro-B Natriuret Pep Total Protein Albumin Bvcxp-8-Yfvsykmif Nfhvw-9-Qxtsjomqo Beta Globulins PEP Interpretation Cholesterol LDL Cholesterol Direct Vitamin B12 Urine WBC (Auto) Urine Creatinine Crossmatch 04/26/16 04/26/16 04/26/16 12:17 16:16 18:14 WBC RBC Hgb Hct MCV MCH MCHC RDW Plt Count Lymph % (Auto) [place] % (Auto) Lymph # [place] # Baso # Seg Neutrophils % Seg Neuts % (Manual) Lymphocytes % (Manual) Monocytes % (Manual) Seg Neutrophils # Seg Neutrophils # Man Lymphocytes # (Manual) Monocytes # (Manual) Basophils # (Manual) Percent Retic PT INR APTT Heparin Anti-Xa Level POC ABG pH 7.513 H POC ABG pCO2 POC ABG pO2 76 L Sodium Potassium Chloride Carbon Dioxide BUN Creatinine Glucose POC Glucose 186 H 172 H Calcium Phosphorus Iron TIBC Lactate Dehydrogenase Total Creatine Kinase NT-Pro-B Natriuret Pep Total Protein Albumin Qkasu-8-Vmtftzagu Ycgzu-4-Ssvletkaf Beta Globulins PEP Interpretation Cholesterol LDL Cholesterol Direct Vitamin B12 Urine WBC (Auto) Urine Creatinine Crossmatch 04/26/16 04/26/16 04/27/16 19:27 23:28 04:21 WBC 13.1 H RBC 2.99 L Hgb 7.8 L Hct 24.0 L MCV 81 L MCH 26 L MCHC RDW 16.7 H Plt Count 486 H Lymph % (Auto) 12.5 L [place] % (Auto) 7.9 H Lymph # [place] # 1.0 H Baso # Seg Neutrophils % 77.5 H Seg Neuts % (Manual) Lymphocytes % (Manual) Monocytes % (Manual) Seg Neutrophils # 10.2 H Seg Neutrophils # Man Lymphocytes # (Manual) Monocytes # (Manual) Basophils # (Manual) Percent Retic PT INR APTT Heparin Anti-Xa Level 0.22 L POC ABG pH POC ABG pCO2 POC ABG pO2 Sodium Potassium Chloride Carbon Dioxide BUN Creatinine Glucose POC Glucose 141 H Calcium Phosphorus Iron TIBC Lactate Dehydrogenase Total Creatine Kinase NT-Pro-B Natriuret Pep Total Protein Albumin Gtmjo-9-Ncoatuztf Cnwha-5-Volrrljvo Beta Globulins PEP Interpretation Cholesterol LDL Cholesterol Direct Vitamin B12 Urine WBC (Auto) Urine Creatinine Crossmatch 04/27/16 04/27/16 04/27/16 04:21 05:46 11:04 WBC RBC Hgb Hct MCV MCH MCHC RDW Plt Count Lymph % (Auto) [place] % (Auto) Lymph # [place] # Baso # Seg Neutrophils % Seg Neuts % (Manual) Lymphocytes % (Manual) Monocytes % (Manual) Seg Neutrophils # Seg Neutrophils # Man Lymphocytes # (Manual) Monocytes # (Manual) Basophils # (Manual) Percent Retic PT INR APTT Heparin Anti-Xa Level POC ABG pH 7.489 H POC ABG pCO2 POC ABG pO2 71 L Sodium Potassium Chloride Carbon Dioxide BUN Creatinine 0.6 L Glucose 187 H POC Glucose 192 H Calcium 8.0 L Phosphorus Iron TIBC Lactate Dehydrogenase Total Creatine Kinase NT-Pro-B Natriuret Pep Total Protein 6.0 L Albumin 2.0 L Upiwb-6-Mfnpnruya Lspdd-6-Znkuamdhu Beta Globulins PEP Interpretation Cholesterol LDL Cholesterol Direct Vitamin B12 Urine WBC (Auto) Urine Creatinine Crossmatch 04/27/16 04/27/16 04/27/16 14:12 21:58 23:38 WBC RBC Hgb Hct MCV MCH MCHC RDW Plt Count Lymph % (Auto) [place] % (Auto) Lymph # [place] # Baso # Seg Neutrophils % Seg Neuts % (Manual) Lymphocytes % (Manual) Monocytes % (Manual) Seg Neutrophils # Seg Neutrophils # Man Lymphocytes # (Manual) Monocytes # (Manual) Basophils # (Manual) Percent Retic PT INR APTT Heparin Anti-Xa Level 0.24 L POC ABG pH POC ABG pCO2 POC ABG pO2 Sodium Potassium Chloride Carbon Dioxide BUN Creatinine Glucose POC Glucose 216 H 181 H Calcium Phosphorus Iron TIBC Lactate Dehydrogenase Total Creatine Kinase NT-Pro-B Natriuret Pep Total Protein Albumin Ghuip-7-Rooowgljw Guhzm-3-Qmwtundrf Beta Globulins PEP Interpretation Cholesterol LDL Cholesterol Direct Vitamin B12 Urine WBC (Auto) Urine Creatinine Crossmatch 04/28/16 04/28/16 04/28/16 04:28 05:52 11:31 WBC RBC Hgb Hct MCV MCH MCHC RDW Plt Count Lymph % (Auto) [place] % (Auto) Lymph # [place] # Baso # Seg Neutrophils % Seg Neuts % (Manual) Lymphocytes % (Manual) Monocytes % (Manual) Seg Neutrophils # Seg Neutrophils # Man Lymphocytes # (Manual) Monocytes # (Manual) Basophils # (Manual) Percent Retic PT INR APTT Heparin Anti-Xa Level POC ABG pH 7.524 H POC ABG pCO2 POC ABG pO2 Sodium Potassium Chloride Carbon Dioxide BUN Creatinine Glucose POC Glucose 254 H 280 H Calcium Phosphorus Iron TIBC Lactate Dehydrogenase Total Creatine Kinase NT-Pro-B Natriuret Pep Total Protein Albumin Hbfxk-9-Fsskpejvn Rtflg-3-Atvbchjvh Beta Globulins PEP Interpretation Cholesterol LDL Cholesterol Direct Vitamin B12 Urine WBC (Auto) Urine Creatinine Crossmatch 04/28/16 04/28/16 04/29/16 17:30 19:52 00:47 WBC RBC Hgb Hct MCV MCH MCHC RDW Plt Count Lymph % (Auto) [place] % (Auto) Lymph # [place] # Baso # Seg Neutrophils % Seg Neuts % (Manual) Lymphocytes % (Manual) Monocytes % (Manual) Seg Neutrophils # Seg Neutrophils # Man Lymphocytes # (Manual) Monocytes # (Manual) Basophils # (Manual) Percent Retic PT INR APTT Heparin Anti-Xa Level 0.15 L POC ABG pH POC ABG pCO2 POC ABG pO2 Sodium Potassium Chloride Carbon Dioxide BUN Creatinine Glucose POC Glucose 208 H 265 H Calcium Phosphorus Iron TIBC Lactate Dehydrogenase Total Creatine Kinase NT-Pro-B Natriuret Pep Total Protein Albumin Wbrgy-2-Nlnbyoklg Djexy-6-Bhqfmmcky Beta Globulins PEP Interpretation Cholesterol LDL Cholesterol Direct Vitamin B12 Urine WBC (Auto) Urine Creatinine Crossmatch 04/29/16 04/29/16 04/29/16 04:00 04:00 04:29 WBC 13.4 H RBC 2.56 L Hgb 6.9 L Hct 20.6 L MCV 81 L MCH 27 L MCHC RDW 16.2 H Plt Count 513 H Lymph % (Auto) 10.0 L [place] % (Auto) 12.0 H Lymph # [place] # 1.6 H Baso # Seg Neutrophils % 77.1 H Seg Neuts % (Manual) Lymphocytes % (Manual) Monocytes % (Manual) Seg Neutrophils # 10.4 H Seg Neutrophils # Man Lymphocytes # (Manual) Monocytes # (Manual) Basophils # (Manual) Percent Retic PT INR APTT Heparin Anti-Xa Level POC ABG pH 7.501 H POC ABG pCO2 POC ABG pO2 76 L Sodium Potassium Chloride Carbon Dioxide BUN 27 H Creatinine Glucose 204 H POC Glucose Calcium 8.1 L Phosphorus Iron TIBC Lactate Dehydrogenase Total Creatine Kinase NT-Pro-B Natriuret Pep Total Protein Albumin Pvaeu-9-Ynnlaeuos Hfkxf-7-Lrxetgznb Beta Globulins PEP Interpretation Cholesterol LDL Cholesterol Direct Vitamin B12 Urine WBC (Auto) Urine Creatinine Crossmatch 04/29/16 04/29/16 04/29/16 06:03 10:05 10:16 WBC RBC Hgb Hct MCV MCH MCHC RDW Plt Count Lymph % (Auto) [place] % (Auto) Lymph # [place] # Baso # Seg Neutrophils % Seg Neuts % (Manual) Lymphocytes % (Manual) Monocytes % (Manual) Seg Neutrophils # Seg Neutrophils # Man Lymphocytes # (Manual) Monocytes # (Manual) Basophils # (Manual) Percent Retic 3.68 H PT INR APTT Heparin Anti-Xa Level POC ABG pH POC ABG pCO2 POC ABG pO2 Sodium Potassium Chloride Carbon Dioxide BUN Creatinine Glucose POC Glucose 192 H Calcium Phosphorus Iron TIBC Lactate Dehydrogenase Total Creatine Kinase NT-Pro-B Natriuret Pep Total Protein Albumin Jrjkk-7-Kwjcmwdvd Ygtlc-2-Qdiaothlg Beta Globulins PEP Interpretation Cholesterol LDL Cholesterol Direct Vitamin B12 Urine WBC (Auto) Urine Creatinine Crossmatch See Detail 04/29/16 04/29/16 04/29/16 10:16 10:16 11:23 WBC RBC Hgb Hct MCV MCH MCHC RDW Plt Count Lymph % (Auto) [place] % (Auto) Lymph # [place] # Baso # Seg Neutrophils % Seg Neuts % (Manual) Lymphocytes % (Manual) Monocytes % (Manual) Seg Neutrophils # Seg Neutrophils # Man Lymphocytes # (Manual) Monocytes # (Manual) Basophils # (Manual) Percent Retic PT INR APTT Heparin Anti-Xa Level POC ABG pH POC ABG pCO2 POC ABG pO2 Sodium Potassium Chloride Carbon Dioxide BUN Creatinine Glucose POC Glucose 116 H Calcium Phosphorus Iron 10 L TIBC 138 L Lactate Dehydrogenase 204 H Total Creatine Kinase NT-Pro-B Natriuret Pep Total Protein Albumin Iedff-2-Nxtbmmrdy Zgtrh-7-Yetfueoyy Beta Globulins PEP Interpretation Cholesterol LDL Cholesterol Direct Vitamin B12 1005 H Urine WBC (Auto) Urine Creatinine Crossmatch 04/29/16 04/29/16 04/30/16 17:34 23:19 03:19 WBC RBC Hgb 9.0 L Hct 26.7 L D MCV MCH MCHC RDW Plt Count Lymph % (Auto) [place] % (Auto) Lymph # [place] # Baso # Seg Neutrophils % Seg Neuts % (Manual) Lymphocytes % (Manual) Monocytes % (Manual) Seg Neutrophils # Seg Neutrophils # Man Lymphocytes # (Manual) Monocytes # (Manual) Basophils # (Manual) Percent Retic PT INR APTT Heparin Anti-Xa Level POC ABG pH POC ABG pCO2 POC ABG pO2 Sodium Potassium Chloride Carbon Dioxide BUN Creatinine Glucose POC Glucose 142 H 242 H Calcium Phosphorus Iron TIBC Lactate Dehydrogenase Total Creatine Kinase NT-Pro-B Natriuret Pep Total Protein Albumin Laucg-0-Pikwhoxjg Ukkvf-8-Wpyuuittn Beta Globulins PEP Interpretation Cholesterol LDL Cholesterol Direct Vitamin B12 Urine WBC (Auto) Urine Creatinine Crossmatch 04/30/16 04/30/16 04/30/16 04:10 04:10 04:32 WBC 13.8 H RBC 3.54 L Hgb 9.3 L Hct 29.1 L MCV 82 L MCH 26 L MCHC RDW 16.5 H Plt Count 535 H Lymph % (Auto) 7.5 L [place] % (Auto) 13.8 H Lymph # 1.0 L [place] # 1.9 H Baso # Seg Neutrophils % 78.0 H Seg Neuts % (Manual) Lymphocytes % (Manual) Monocytes % (Manual) Seg Neutrophils # 10.7 H Seg Neutrophils # Man Lymphocytes # (Manual) Monocytes # (Manual) Basophils # (Manual) Percent Retic PT INR APTT Heparin Anti-Xa Level POC ABG pH 7.519 H POC ABG pCO2 33.6 L POC ABG pO2 79 L Sodium 146 H Potassium Chloride Carbon Dioxide BUN Creatinine 0.7 L Glucose 242 H POC Glucose Calcium 8.3 L Phosphorus Iron TIBC Lactate Dehydrogenase Total Creatine Kinase NT-Pro-B Natriuret Pep Total Protein Albumin Tysny-7-Diaafglqs Capge-0-Ngxwfjjrh Beta Globulins PEP Interpretation Cholesterol LDL Cholesterol Direct Vitamin B12 Urine WBC (Auto) Urine Creatinine Crossmatch 04/30/16 04/30/16 04/30/16 05:33 11:23 17:26 WBC RBC Hgb Hct MCV MCH MCHC RDW Plt Count Lymph % (Auto) [place] % (Auto) Lymph # [place] # Baso # Seg Neutrophils % Seg Neuts % (Manual) Lymphocytes % (Manual) Monocytes % (Manual) Seg Neutrophils # Seg Neutrophils # Man Lymphocytes # (Manual) Monocytes # (Manual) Basophils # (Manual) Percent Retic PT INR APTT Heparin Anti-Xa Level POC ABG pH POC ABG pCO2 POC ABG pO2 Sodium Potassium Chloride Carbon Dioxide BUN Creatinine Glucose POC Glucose 242 H 305 H 281 H Calcium Phosphorus Iron TIBC Lactate Dehydrogenase Total Creatine Kinase NT-Pro-B Natriuret Pep Total Protein Albumin Chfnf-3-Pyojrvryf Goskd-0-Qrnogxlsp Beta Globulins PEP Interpretation Cholesterol LDL Cholesterol Direct Vitamin B12 Urine WBC (Auto) Urine Creatinine Crossmatch 04/30/16 05/01/16 05/01/16 23:53 04:00 04:00 WBC 15.9 H RBC 2.99 L Hgb 7.9 L Hct 24.4 L MCV 82 L MCH 26 L MCHC RDW 16.9 H Plt Count 481 H Lymph % (Auto) 9.3 L [place] % (Auto) 15.0 H Lymph # [place] # 2.4 H Baso # Seg Neutrophils % 74.9 H Seg Neuts % (Manual) Lymphocytes % (Manual) Monocytes % (Manual) Seg Neutrophils # 11.9 H Seg Neutrophils # Man Lymphocytes # (Manual) Monocytes # (Manual) Basophils # (Manual) Percent Retic PT INR APTT Heparin Anti-Xa Level POC ABG pH POC ABG pCO2 POC ABG pO2 Sodium 147 H Potassium Chloride 107.8 H Carbon Dioxide BUN 22 H Creatinine 0.7 L Glucose 229 H POC Glucose 207 H Calcium 8.2 L Phosphorus Iron TIBC Lactate Dehydrogenase Total Creatine Kinase NT-Pro-B Natriuret Pep Total Protein Albumin Yvzup-0-[place]mre Qxgdf-9-Ftxgforjx Beta Globulins PEP Interpretation Cholesterol LDL Cholesterol Direct Vitamin B12 Urine WBC (Auto) Urine Creatinine Crossmatch 05/01/16 05/01/16 05/01/16 05:12 07:41 12:33 WBC RBC Hgb Hct MCV MCH MCHC RDW Plt Count Lymph % (Auto) [place] % (Auto) Lymph # [place] # Baso # Seg Neutrophils % Seg Neuts % (Manual) Lymphocytes % (Manual) Monocytes % (Manual) Seg Neutrophils # Seg Neutrophils # Man Lymphocytes # (Manual) Monocytes # (Manual) Basophils # (Manual) Percent Retic PT INR APTT Heparin Anti-Xa Level 0.16 L POC ABG pH POC ABG pCO2 POC ABG pO2 Sodium Potassium Chloride Carbon Dioxide BUN Creatinine Glucose POC Glucose 284 H 186 H Calcium Phosphorus Iron TIBC Lactate Dehydrogenase Total Creatine Kinase NT-Pro-B Natriuret Pep Total Protein Albumin Ffywo-7-[place]rw[place] Fcfwt-3-Gpazsoqlg Beta Globulins PEP Interpretation Cholesterol LDL Cholesterol Direct Vitamin B12 Urine WBC (Auto) Urine Creatinine Crossmatch 05/01/16 05/01/16 05/02/16 17:24 23:19 04:48 WBC 17.2 H RBC 3.09 L Hgb 8.1 L Hct 25.5 L MCV 83 L MCH 26 L MCHC RDW 17.3 H Plt Count 507 H Lymph % (Auto) 8.0 L [place] % (Auto) 13.6 H Lymph # [place] # 2.3 H Baso # Seg Neutrophils % 77.5 H Seg Neuts % (Manual) Lymphocytes % (Manual) Monocytes % (Manual) Seg Neutrophils # 13.4 H Seg Neutrophils # Man Lymphocytes # (Manual) Monocytes # (Manual) Basophils # (Manual) Percent Retic PT INR APTT Heparin Anti-Xa Level POC ABG pH POC ABG pCO2 POC ABG pO2 Sodium Potassium Chloride Carbon Dioxide BUN Creatinine Glucose POC Glucose 171 H 132 H Calcium Phosphorus Iron TIBC Lactate Dehydrogenase Total Creatine Kinase NT-Pro-B Natriuret Pep Total Protein Albumin Rjmzx-5-Gkxbhfuok Ajpjm-7-Yealtimvs Beta Globulins PEP Interpretation Cholesterol LDL Cholesterol Direct Vitamin B12 Urine WBC (Auto) Urine Creatinine Crossmatch 05/02/16 05/02/16 05/02/16 04:48 04:48 05:42 WBC RBC Hgb Hct MCV MCH MCHC RDW Plt Count Lymph % (Auto) [place] % (Auto) Lymph # [place] # Baso # Seg Neutrophils % Seg Neuts % (Manual) Lymphocytes % (Manual) Monocytes % (Manual) Seg Neutrophils # Seg Neutrophils # Man Lymphocytes # (Manual) Monocytes # (Manual) Basophils # (Manual) Percent Retic PT INR APTT Heparin Anti-Xa Level 0.19 L POC ABG pH POC ABG pCO2 POC ABG pO2 Sodium 149 H Potassium Chloride 109.9 H Carbon Dioxide BUN 24 H Creatinine Glucose 224 H POC Glucose 253 H Calcium 8.2 L Phosphorus Iron TIBC Lactate Dehydrogenase Total Creatine Kinase NT-Pro-B Natriuret Pep Total Protein Albumin Ybjeq-6-Zhqxgynhc Vbdoz-5-Vanrglqca Beta Globulins PEP Interpretation Cholesterol LDL Cholesterol Direct Vitamin B12 Urine WBC (Auto) Urine Creatinine Crossmatch 05/02/16 05/02/16 05/02/16 12:01 16:40 23:35 WBC RBC Hgb Hct MCV MCH MCHC RDW Plt Count Lymph % (Auto) [place] % (Auto) Lymph # [place] # Baso # Seg Neutrophils % Seg Neuts % (Manual) Lymphocytes % (Manual) Monocytes % (Manual) Seg Neutrophils # Seg Neutrophils # Man Lymphocytes # (Manual) Monocytes # (Manual) Basophils # (Manual) Percent Retic PT INR APTT Heparin Anti-Xa Level POC ABG pH POC ABG pCO2 POC ABG pO2 Sodium Potassium Chloride Carbon Dioxide BUN Creatinine Glucose POC Glucose 197 H 126 H 303 H Calcium Phosphorus Iron TIBC Lactate Dehydrogenase Total Creatine Kinase NT-Pro-B Natriuret Pep Total Protein Albumin Ffphn-2-Ocxcsbhxs Qrcdv-4-Tqmqcwmoq Beta Globulins PEP Interpretation Cholesterol LDL Cholesterol Direct Vitamin B12 Urine WBC (Auto) Urine Creatinine Crossmatch 05/03/16 05/03/16 05/03/16 04:31 04:31 04:31 WBC 19.1 H RBC 3.15 L Hgb 8.6 L Hct 25.7 L MCV 82 L MCH MCHC RDW 17.4 H Plt Count 525 H Lymph % (Auto) [place] % (Auto) Lymph # [place] # Baso # Seg Neutrophils % Seg Neuts % (Manual) Lymphocytes % (Manual) 10.0 L Monocytes % (Manual) 13.0 H Seg Neutrophils # Seg Neutrophils # Man 13.2 H Lymphocytes # (Manual) Monocytes # (Manual) 2.5 H Basophils # (Manual) 0.2 H Percent Retic PT INR APTT Heparin Anti-Xa Level 0.16 L POC ABG pH POC ABG pCO2 POC ABG pO2 Sodium 151 H Potassium Chloride 112.9 H Carbon Dioxide BUN 24 H Creatinine 0.7 L Glucose 303 H POC Glucose Calcium Phosphorus Iron TIBC Lactate Dehydrogenase Total Creatine Kinase NT-Pro-B Natriuret Pep Total Protein Albumin Zgsie-0-Ukqwzhfvb Kgjab-8-Wdyuykbwi Beta Globulins PEP Interpretation Cholesterol LDL Cholesterol Direct Vitamin B12 Urine WBC (Auto) Urine Creatinine Crossmatch 05/03/16 05/03/16 05/04/16 12:08 18:05 00:11 WBC RBC Hgb Hct MCV MCH MCHC RDW Plt Count Lymph % (Auto) [place] % (Auto) Lymph # [place] # Baso # Seg Neutrophils % Seg Neuts % (Manual) Lymphocytes % (Manual) Monocytes % (Manual) Seg Neutrophils # Seg Neutrophils # Man Lymphocytes # (Manual) Monocytes # (Manual) Basophils # (Manual) Percent Retic PT INR APTT Heparin Anti-Xa Level POC ABG pH POC ABG pCO2 POC ABG pO2 Sodium Potassium Chloride Carbon Dioxide BUN Creatinine Glucose POC Glucose 452 H 370 H 374 H Calcium Phosphorus Iron TIBC Lactate Dehydrogenase Total Creatine Kinase NT-Pro-B Natriuret Pep Total Protein Albumin Kdmvz-1-Cjkuwwtjf Himet-0-Dlodyrosi Beta Globulins PEP Interpretation Cholesterol LDL Cholesterol Direct Vitamin B12 Urine WBC (Auto) Urine Creatinine Crossmatch 05/04/16 05/04/16 05/04/16 04:31 04:31 04:31 WBC 19.8 H RBC 2.90 L Hgb 7.8 L Hct 23.8 L MCV 82 L MCH 27 L MCHC RDW 17.9 H Plt Count 504 H Lymph % (Auto) [place] % (Auto) Lymph # [place] # Baso # Seg Neutrophils % Seg Neuts % (Manual) Lymphocytes % (Manual) 11.0 L Monocytes % (Manual) 8.0 H Seg Neutrophils # Seg Neutrophils # Man 13.3 H Lymphocytes # (Manual) Monocytes # (Manual) 1.6 H Basophils # (Manual) Percent Retic PT INR APTT Heparin Anti-Xa Level 0.15 L POC ABG pH POC ABG pCO2 POC ABG pO2 Sodium 146 H Potassium Chloride Carbon Dioxide BUN 30 H Creatinine 0.7 L Glucose 321 H POC Glucose Calcium 8.3 L Phosphorus Iron TIBC Lactate Dehydrogenase Total Creatine Kinase NT-Pro-B Natriuret Pep Total Protein Albumin Mdtut-3-Uhcauyydv Mzdjp-6-Iymqgjdhd Beta Globulins PEP Interpretation Cholesterol LDL Cholesterol Direct Vitamin B12 Urine WBC (Auto) Urine Creatinine Crossmatch 05/04/16 05/04/16 05/04/16 10:20 11:57 17:36 WBC RBC Hgb Hct MCV MCH MCHC RDW Plt Count Lymph % (Auto) [place] % (Auto) Lymph # [place] # Baso # Seg Neutrophils % Seg Neuts % (Manual) Lymphocytes % (Manual) Monocytes % (Manual) Seg Neutrophils # Seg Neutrophils # Man Lymphocytes # (Manual) Monocytes # (Manual) Basophils # (Manual) Percent Retic PT INR APTT Heparin Anti-Xa Level POC ABG pH POC ABG pCO2 POC ABG pO2 Sodium Potassium Chloride Carbon Dioxide BUN Creatinine Glucose POC Glucose 303 H 271 H Calcium Phosphorus Iron TIBC Lactate Dehydrogenase Total Creatine Kinase NT-Pro-B Natriuret Pep Total Protein Albumin Gomwe-8-Ulnbfdpts Kzdeh-4-Djemwizsa Beta Globulins PEP Interpretation Cholesterol LDL Cholesterol Direct Vitamin B12 Urine WBC (Auto) > 182.0 H Urine Creatinine Crossmatch 05/04/16 05/05/16 05/05/16 23:53 04:13 04:13 WBC 20.9 H RBC 2.92 L Hgb 7.6 L Hct 23.9 L MCV 82 L MCH 26 L MCHC RDW 17.9 H Plt Count 526 H Lymph % (Auto) [place] % (Auto) Lymph # [place] # Baso # Seg Neutrophils % Seg Neuts % (Manual) 93.0 H Lymphocytes % (Manual) 2.0 L Monocytes % (Manual) Seg Neutrophils # Seg Neutrophils # Man 19.4 H Lymphocytes # (Manual) 0.4 L Monocytes # (Manual) Basophils # (Manual) Percent Retic PT INR APTT Heparin Anti-Xa Level POC ABG pH POC ABG pCO2 POC ABG pO2 Sodium 146 H Potassium Chloride Carbon Dioxide BUN 30 H Creatinine 0.7 L Glucose 250 H POC Glucose 235 H Calcium 8.1 L Phosphorus Iron TIBC Lactate Dehydrogenase Total Creatine Kinase NT-Pro-B Natriuret Pep Total Protein Albumin Xokew-7-Pgztvfzzf Bujvi-3-Loxxoobdq Beta Globulins PEP Interpretation Cholesterol LDL Cholesterol Direct Vitamin B12 Urine WBC (Auto) Urine Creatinine Crossmatch 05/05/16 05/05/16 05/05/16 05:27 07:36 12:06 WBC RBC Hgb Hct MCV MCH MCHC RDW Plt Count Lymph % (Auto) [place] % (Auto) Lymph # [place] # Baso # Seg Neutrophils % Seg Neuts % (Manual) Lymphocytes % (Manual) Monocytes % (Manual) Seg Neutrophils # Seg Neutrophils # Man Lymphocytes # (Manual) Monocytes # (Manual) Basophils # (Manual) Percent Retic PT INR APTT Heparin Anti-Xa Level < 0.10 L POC ABG pH POC ABG pCO2 POC ABG pO2 Sodium Potassium Chloride Carbon Dioxide BUN Creatinine Glucose POC Glucose 287 H 301 H Calcium Phosphorus Iron TIBC Lactate Dehydrogenase Total Creatine Kinase NT-Pro-B Natriuret Pep Total Protein Albumin Bqpsl-6-Llwqpzojw Nmrjb-2-Zdoqaeppo Beta Globulins PEP Interpretation Cholesterol LDL Cholesterol Direct Vitamin B12 Urine WBC (Auto) Urine Creatinine Crossmatch 05/05/16 05/05/16 05/06/16 15:58 17:30 00:10 WBC RBC Hgb Hct MCV MCH MCHC RDW Plt Count Lymph % (Auto) [place] % (Auto) Lymph # [place] # Baso # Seg Neutrophils % Seg Neuts % (Manual) Lymphocytes % (Manual) Monocytes % (Manual) Seg Neutrophils # Seg Neutrophils # Man Lymphocytes # (Manual) Monocytes # (Manual) Basophils # (Manual) Percent Retic PT INR APTT Heparin Anti-Xa Level 0.17 L POC ABG pH POC ABG pCO2 POC ABG pO2 Sodium Potassium Chloride Carbon Dioxide BUN Creatinine Glucose POC Glucose 226 H 161 H Calcium Phosphorus Iron TIBC Lactate Dehydrogenase Total Creatine Kinase NT-Pro-B Natriuret Pep Total Protein Albumin Irooe-5-Ynvbjpgoe Sztgd-3-Xkzkixukc Beta Globulins PEP Interpretation Cholesterol LDL Cholesterol Direct Vitamin B12 Urine WBC (Auto) Urine Creatinine Crossmatch 05/06/16 05/06/16 05/06/16 04:23 05:30 05:37 WBC RBC Hgb Hct MCV MCH MCHC RDW Plt Count Lymph % (Auto) [place] % (Auto) Lymph # [place] # Baso # Seg Neutrophils % Seg Neuts % (Manual) Lymphocytes % (Manual) Monocytes % (Manual) Seg Neutrophils # Seg Neutrophils # Man Lymphocytes # (Manual) Monocytes # (Manual) Basophils # (Manual) Percent Retic PT INR APTT Heparin Anti-Xa Level 0.15 L POC ABG pH 7.511 H POC ABG pCO2 POC ABG pO2 Sodium Potassium Chloride Carbon Dioxide BUN Creatinine Glucose POC Glucose 168 H Calcium Phosphorus Iron TIBC Lactate Dehydrogenase Total Creatine Kinase NT-Pro-B Natriuret Pep Total Protein Albumin Joyes-3-Jxztahvpk Hogbb-4-Eipckkatv Beta Globulins PEP Interpretation Cholesterol LDL Cholesterol Direct Vitamin B12 Urine WBC (Auto) Urine Creatinine Crossmatch 05/06/16 05/06/16 05/07/16 12:48 17:22 00:04 WBC RBC Hgb Hct MCV MCH MCHC RDW Plt Count Lymph % (Auto) [place] % (Auto) Lymph # [place] # Baso # Seg Neutrophils % Seg Neuts % (Manual) Lymphocytes % (Manual) Monocytes % (Manual) Seg Neutrophils # Seg Neutrophils # Man Lymphocytes # (Manual) Monocytes # (Manual) Basophils # (Manual) Percent Retic PT INR APTT Heparin Anti-Xa Level POC ABG pH POC ABG pCO2 POC ABG pO2 Sodium Potassium Chloride Carbon Dioxide BUN Creatinine Glucose POC Glucose 206 H 160 H 164 H Calcium Phosphorus Iron TIBC Lactate Dehydrogenase Total Creatine Kinase NT-Pro-B Natriuret Pep Total Protein Albumin Ochho-4-Ovrveghto Czggs-3-Zjyfanolb Beta Globulins PEP Interpretation Cholesterol LDL Cholesterol Direct Vitamin B12 Urine WBC (Auto) Urine Creatinine Crossmatch 05/07/16 05/07/16 05/07/16 04:02 05:50 11:30 WBC RBC Hgb Hct MCV MCH MCHC RDW Plt Count Lymph % (Auto) [place] % (Auto) Lymph # [place] # Baso # Seg Neutrophils % Seg Neuts % (Manual) Lymphocytes % (Manual) Monocytes % (Manual) Seg Neutrophils # Seg Neutrophils # Man Lymphocytes # (Manual) Monocytes # (Manual) Basophils # (Manual) Percent Retic PT INR APTT Heparin Anti-Xa Level 0.15 L POC ABG pH POC ABG pCO2 POC ABG pO2 Sodium Potassium Chloride Carbon Dioxide BUN Creatinine Glucose POC Glucose 177 H 240 H Calcium Phosphorus Iron TIBC Lactate Dehydrogenase Total Creatine Kinase NT-Pro-B Natriuret Pep Total Protein Albumin Qwivm-7-Imgkfeoie Mnfsh-4-Jwyfaqclc Beta Globulins PEP Interpretation Cholesterol LDL Cholesterol Direct Vitamin B12 Urine WBC (Auto) Urine Creatinine Crossmatch 05/07/16 05/07/16 05/07/16 12:46 17:57 23:54 WBC 20.8 H RBC 2.86 L Hgb 7.6 L Hct 23.3 L MCV 81 L MCH 26 L MCHC RDW 17.9 H Plt Count 559 H Lymph % (Auto) [place] % (Auto) Lymph # [place] # Baso # Seg Neutrophils % Seg Neuts % (Manual) Lymphocytes % (Manual) Monocytes % (Manual) Seg Neutrophils # Seg Neutrophils # Man Lymphocytes # (Manual) Monocytes # (Manual) Basophils # (Manual) Percent Retic PT INR APTT Heparin Anti-Xa Level POC ABG pH POC ABG pCO2 POC ABG pO2 Sodium Potassium Chloride Carbon Dioxide BUN Creatinine Glucose POC Glucose 279 H 201 H Calcium Phosphorus Iron TIBC Lactate Dehydrogenase Total Creatine Kinase NT-Pro-B Natriuret Pep Total Protein Albumin Xqkrv-8-Wqbxvnsuy Ivvzd-5-Ajedummmg Beta Globulins PEP Interpretation Cholesterol LDL Cholesterol Direct Vitamin B12 Urine WBC (Auto) Urine Creatinine Crossmatch 05/08/16 05/08/16 05/08/16 04:04 05:39 12:09 WBC RBC Hgb Hct MCV MCH MCHC RDW Plt Count Lymph % (Auto) [place] % (Auto) Lymph # [place] # Baso # Seg Neutrophils % Seg Neuts % (Manual) Lymphocytes % (Manual) Monocytes % (Manual) Seg Neutrophils # Seg Neutrophils # Man Lymphocytes # (Manual) Monocytes # (Manual) Basophils # (Manual) Percent Retic PT INR APTT Heparin Anti-Xa Level 0.20 L POC ABG pH POC ABG pCO2 POC ABG pO2 Sodium Potassium Chloride Carbon Dioxide BUN Creatinine Glucose POC Glucose 153 H 188 H Calcium Phosphorus Iron TIBC Lactate Dehydrogenase Total Creatine Kinase NT-Pro-B Natriuret Pep Total Protein Albumin Jrfok-7-Wampptgei Thpqu-8-Liisfywcb Beta Globulins PEP Interpretation Cholesterol LDL Cholesterol Direct Vitamin B12 Urine WBC (Auto) Urine Creatinine Crossmatch 05/08/16 05/08/16 05/08/16 17:44 17:49 18:51 WBC RBC Hgb Hct MCV MCH MCHC RDW Plt Count Lymph % (Auto) [place] % (Auto) Lymph # [place] # Baso # Seg Neutrophils % Seg Neuts % (Manual) Lymphocytes % (Manual) Monocytes % (Manual) Seg Neutrophils # Seg Neutrophils # Man Lymphocytes # (Manual) Monocytes # (Manual) Basophils # (Manual) Percent Retic PT INR APTT Heparin Anti-Xa Level POC ABG pH POC ABG pCO2 POC ABG pO2 Sodium Potassium Chloride Carbon Dioxide BUN Creatinine Glucose POC Glucose 56 L 61 L 135 H Calcium Phosphorus Iron TIBC Lactate Dehydrogenase Total Creatine Kinase NT-Pro-B Natriuret Pep Total Protein Albumin Nfoxl-4-Omgzmsiuc Umivg-9-Wphxoafvl Beta Globulins PEP Interpretation Cholesterol LDL Cholesterol Direct Vitamin B12 Urine WBC (Auto) Urine Creatinine Crossmatch 05/09/16 05/09/16 05/09/16 00:14 04:07 05:18 WBC RBC Hgb Hct MCV MCH MCHC RDW Plt Count Lymph % (Auto) [place] % (Auto) Lymph # [place] # Baso # Seg Neutrophils % Seg Neuts % (Manual) Lymphocytes % (Manual) Monocytes % (Manual) Seg Neutrophils # Seg Neutrophils # Man Lymphocytes # (Manual) Monocytes # (Manual) Basophils # (Manual) Percent Retic PT INR APTT Heparin Anti-Xa Level 0.21 L POC ABG pH POC ABG pCO2 POC ABG pO2 Sodium Potassium Chloride Carbon Dioxide BUN Creatinine Glucose POC Glucose 151 H 215 H Calcium Phosphorus Iron TIBC Lactate Dehydrogenase Total Creatine Kinase NT-Pro-B Natriuret Pep Total Protein Albumin Jkyqc-6-Mdqhhevvx Yfkva-4-Xxibvockb Beta Globulins PEP Interpretation Cholesterol LDL Cholesterol Direct Vitamin B12 Urine WBC (Auto) Urine Creatinine Crossmatch 05/09/16 05/09/16 05/09/16 12:27 16:39 17:30 WBC RBC Hgb 6.4 L Hct 20.2 L MCV MCH MCHC RDW Plt Count Lymph % (Auto) [place] % (Auto) Lymph # [place] # Baso # Seg Neutrophils % Seg Neuts % (Manual) Lymphocytes % (Manual) Monocytes % (Manual) Seg Neutrophils # Seg Neutrophils # Man Lymphocytes # (Manual) Monocytes # (Manual) Basophils # (Manual) Percent Retic PT INR APTT Heparin Anti-Xa Level POC ABG pH POC ABG pCO2 POC ABG pO2 Sodium Potassium Chloride Carbon Dioxide BUN Creatinine Glucose POC Glucose 291 H 220 H Calcium Phosphorus Iron TIBC Lactate Dehydrogenase Total Creatine Kinase NT-Pro-B Natriuret Pep Total Protein Albumin [place]-6-Kftiuvugw Mrnqy-6-Lemuitkrt Beta Globulins PEP Interpretation Cholesterol LDL Cholesterol Direct Vitamin B12 Urine WBC (Auto) Urine Creatinine Crossmatch 05/09/16 05/09/16 05/10/16 19:47 23:57 03:55 WBC 16.9 H RBC 3.20 L Hgb 8.6 L Hct 26.7 L D MCV 83 L MCH 27 L MCHC RDW 17.5 H Plt Count 488 H Lymph % (Auto) [place] % (Auto) Lymph # [place] # Baso # Seg Neutrophils % Seg Neuts % (Manual) 76.0 H Lymphocytes % (Manual) 9.0 L Monocytes % (Manual) 10.0 H Seg Neutrophils # Seg Neutrophils # Man 12.8 H Lymphocytes # (Manual) Monocytes # (Manual) 1.7 H Basophils # (Manual) Percent Retic PT INR APTT Heparin Anti-Xa Level POC ABG pH POC ABG pCO2 POC ABG pO2 Sodium Potassium Chloride Carbon Dioxide BUN Creatinine Glucose POC Glucose 217 H Calcium Phosphorus Iron TIBC Lactate Dehydrogenase Total Creatine Kinase NT-Pro-B Natriuret Pep Total Protein Albumin Jfxer-0-Nprrlrkrc Npxyj-9-Nvntnojgr Beta Globulins PEP Interpretation Cholesterol LDL Cholesterol Direct Vitamin B12 Urine WBC (Auto) Urine Creatinine Crossmatch See Detail 05/10/16 05/10/16 05/10/16 05:05 11:49 12:54 WBC RBC Hgb 9.1 L Hct 28.2 L MCV MCH MCHC RDW Plt Count Lymph % (Auto) [place] % (Auto) Lymph # [place] # Baso # Seg Neutrophils % Seg Neuts % (Manual) Lymphocytes % (Manual) Monocytes % (Manual) Seg Neutrophils # Seg Neutrophils # Man Lymphocytes # (Manual) Monocytes # (Manual) Basophils # (Manual) Percent Retic PT INR APTT Heparin Anti-Xa Level POC ABG pH POC ABG pCO2 POC ABG pO2 Sodium Potassium Chloride Carbon Dioxide BUN Creatinine Glucose POC Glucose 182 H 237 H Calcium Phosphorus Iron TIBC Lactate Dehydrogenase Total Creatine Kinase NT-Pro-B Natriuret Pep Total Protein Albumin Msibp-8-Ahjwbtmfw Jzrqi-8-Xzcujrnbt Beta Globulins PEP Interpretation Cholesterol LDL Cholesterol Direct Vitamin B12 Urine WBC (Auto) Urine Creatinine Crossmatch 05/10/16 05/10/16 05/10/16 12:54 17:29 23:07 WBC RBC Hgb Hct MCV MCH MCHC RDW Plt Count Lymph % (Auto) [place] % (Auto) Lymph # [place] # Baso # Seg Neutrophils % Seg Neuts % (Manual) Lymphocytes % (Manual) Monocytes % (Manual) Seg Neutrophils # Seg Neutrophils # Man Lymphocytes # (Manual) Monocytes # (Manual) Basophils # (Manual) Percent Retic PT INR 1.14 H APTT Heparin Anti-Xa Level POC ABG pH POC ABG pCO2 POC ABG pO2 Sodium Potassium Chloride Carbon Dioxide BUN Creatinine Glucose POC Glucose 198 H 172 H Calcium Phosphorus Iron TIBC Lactate Dehydrogenase Total Creatine Kinase NT-Pro-B Natriuret Pep Total Protein Albumin Wbprw-5-Yzrbukuvz Ejsxa-1-Kklcovqsy Beta Globulins PEP Interpretation Cholesterol LDL Cholesterol Direct Vitamin B12 Urine WBC (Auto) Urine Creatinine Crossmatch 05/11/16 05/11/16 05/11/16 04:16 04:16 05:13 WBC 16.1 H RBC 3.27 L Hgb 8.8 L Hct 27.7 L MCV MCH 27 L MCHC RDW 17.9 H Plt Count 475 H Lymph % (Auto) 8.9 L [place] % (Auto) 8.0 H Lymph # [place] # 1.3 H Baso # Seg Neutrophils % 81.6 H Seg Neuts % (Manual) Lymphocytes % (Manual) Monocytes % (Manual) Seg Neutrophils # 13.1 H Seg Neutrophils # Man Lymphocytes # (Manual) Monocytes # (Manual) Basophils # (Manual) Percent Retic PT INR APTT Heparin Anti-Xa Level POC ABG pH POC ABG pCO2 POC ABG pO2 Sodium 152 H Potassium Chloride 114.2 H Carbon Dioxide BUN 23 H Creatinine 0.6 L Glucose 166 H POC Glucose 173 H Calcium 8.0 L Phosphorus Iron TIBC Lactate Dehydrogenase Total Creatine Kinase NT-Pro-B Natriuret Pep Total Protein Albumin Qxqzd-4-Xwqjskkoz Mkzye-7-Rkxdadiex Beta Globulins PEP Interpretation Cholesterol LDL Cholesterol Direct Vitamin B12 Urine WBC (Auto) Urine Creatinine Crossmatch 05/11/16 11:30 WBC RBC Hgb Hct MCV MCH MCHC RDW Plt Count Lymph % (Auto) [place] % (Auto) Lymph # [place] # Baso # Seg Neutrophils % Seg Neuts % (Manual) Lymphocytes % (Manual) Monocytes % (Manual) Seg Neutrophils # Seg Neutrophils # Man Lymphocytes # (Manual) Monocytes # (Manual) Basophils # (Manual) Percent Retic PT INR APTT Heparin Anti-Xa Level POC ABG pH POC ABG pCO2 POC ABG pO2 Sodium Potassium Chloride Carbon Dioxide BUN Creatinine Glucose POC Glucose 192 H Calcium Phosphorus Iron TIBC Lactate Dehydrogenase Total Creatine Kinase NT-Pro-B Natriuret Pep Total Protein Albumin Shqmt-0-Vrtkjasvc Lzqbo-4-Curgwxowq Beta Globulins PEP Interpretation Cholesterol LDL Cholesterol Direct Vitamin B12 Urine WBC (Auto) Urine Creatinine Crossmatch Chest x-ray: report reviewed, image reviewed (clear)
[2016-05-12] MEDS: ZOSYN/NS 4.5GM/100ML 100 ML IV SCH ×5 (00:27→23:20)
[2016-05-12] MEDS: NOVOLOG SUB-Q SCH ×4 (00:29→18:31)
[2016-05-12] MEDS: DUONEB 0.5 MG-3 MG/3 ML SOLN IH SCH ×4 (02:51→19:57)
[2016-05-12] MEDS: NORMODYNE PO SCH ×3 (08:07→21:21)
[2016-05-12 08:12] LABS: Anion Gap 21 mmol/L; Blood Urea Nitrogen 20 mg/dL (9-20); Calcium 8.2 mg/dL (8.4-10.2); Carbon Dioxide 23 mmol/L (22-30); Chloride 108.5 mmol/L (98-107); Glucose 146 mg/dL (75-100); Potassium 4.4 mmol/L (3.6-5.0); Sodium 148 mmol/L (137-145)
--- NOTE | 2016-05-12 09:17 | Progress Note ---
Assessment and Plan 1. There is no bleeding from tracheosotomy site noted. The heparin drip may be restarted but with no bolus. Subjective Date of service: 05/12/16 Narrative: There is currently no bleeding around the tracheostomy site. No reports of bleeding from nursing for 48hrs. He is currently off the heparin drip. Objective Vital Signs - 12hr 05/11/16 05/11/16 05/11/16 22:00 22:03 23:00 Temperature Pulse Rate 73 72 74 Pulse Rate [ Anterior Bilateral Throughout] Pulse Rate [ Apical] Pulse Rate [ Bilateral] Pulse Rate [ From Monitor] Respiratory 20 19 22 Rate Respiratory Rate [Anterior Bilateral Throughout] Respiratory Rate [Bilateral ] Blood Pressure 113/72 113/72 118/78 O2 Sat by Pulse 99 100 99 Oximetry O2 Sat by Pulse Oximetry [ Assessment] 05/11/16 05/12/16 05/12/16 23:42 00:00 00:04 Temperature 99.6 F Pulse Rate 72 72 Pulse Rate [ Anterior Bilateral Throughout] Pulse Rate [ 77 Apical] Pulse Rate [ Bilateral] Pulse Rate [ 77 From Monitor] Respiratory 19 Rate Respiratory Rate [Anterior Bilateral Throughout] Respiratory Rate [Bilateral ] Blood Pressure 120/72 120/72 O2 Sat by Pulse 99 100 Oximetry O2 Sat by Pulse 99 Oximetry [ Assessment] 05/12/16 05/12/16 05/12/16 01:00 01:14 02:00 Temperature Pulse Rate 76 78 76 Pulse Rate [ Anterior Bilateral Throughout] Pulse Rate [ Apical] Pulse Rate [ Bilateral] Pulse Rate [ From Monitor] Respiratory 21 20 21 Rate Respiratory Rate [Anterior Bilateral Throughout] Respiratory Rate [Bilateral ] Blood Pressure 124/72 124/72 135/82 O2 Sat by Pulse 97 99 Oximetry O2 Sat by Pulse Oximetry [ Assessment] 05/12/16 05/12/16 05/12/16 02:06 02:50 03:00 Temperature Pulse Rate 77 74 Pulse Rate [ 76 Anterior Bilateral Throughout] Pulse Rate [ Apical] Pulse Rate [ Bilateral] Pulse Rate [ From Monitor] Respiratory 21 14 Rate Respiratory 14 Rate [Anterior Bilateral Throughout] Respiratory Rate [Bilateral ] Blood Pressure 135/82 140/78 O2 Sat by Pulse 99 97 Oximetry O2 Sat by Pulse Oximetry [ Assessment] 05/12/16 05/12/16 05/12/16 03:01 04:00 04:08 Temperature 99.0 F Pulse Rate 74 72 Pulse Rate [ 75 Anterior Bilateral Throughout] Pulse Rate [ 73 Apical] Pulse Rate [ Bilateral] Pulse Rate [ 73 From Monitor] Respiratory 14 Rate Respiratory 14 Rate [Anterior Bilateral Throughout] Respiratory Rate [Bilateral ] Blood Pressure 133/78 133/78 O2 Sat by Pulse 97 97 Oximetry O2 Sat by Pulse Oximetry [ Assessment] 05/12/16 05/12/16 05/12/16 04:51 05:00 05:51 Temperature Pulse Rate 81 80 76 Pulse Rate [ Anterior Bilateral Throughout] Pulse Rate [ Apical] Pulse Rate [ Bilateral] Pulse Rate [ From Monitor] Respiratory 15 14 12 Rate Respiratory Rate [Anterior Bilateral Throughout] Respiratory Rate [Bilateral ] Blood Pressure 133/78 152/87 152/87 O2 Sat by Pulse 95 99 99 Oximetry O2 Sat by Pulse Oximetry [ Assessment] 05/12/16 05/12/16 05/12/16 08:00 08:07 08:14 Temperature 98.1 F Pulse Rate 77 78 Pulse Rate [ Anterior Bilateral Throughout] Pulse Rate [ Apical] Pulse Rate [ Bilateral] Pulse Rate [ From Monitor] Respiratory Rate Respiratory Rate [Anterior Bilateral Throughout] Respiratory Rate [Bilateral ] Blood Pressure 149/86 149/86 O2 Sat by Pulse 94 Oximetry O2 Sat by Pulse Oximetry [ Assessment] 05/12/16 05/12/16 08:21 08:22 Temperature Pulse Rate Pulse Rate [ Anterior Bilateral Throughout] Pulse Rate [ Apical] Pulse Rate [ 78 Bilateral] Pulse Rate [ From Monitor] Respiratory Rate Respiratory Rate [Anterior Bilateral Throughout] Respiratory 18 Rate [Bilateral ] Blood Pressure O2 Sat by Pulse Oximetry O2 Sat by Pulse 96 Oximetry [ Assessment] - Neck no masses (trachesotomy in place. no bleeding noted. no blood on dressing) - Labs 05/11/16 04:16 05/12/16 07:33 Diabetes panel 05/12/16 Range/Units 07:33 Sodium 148 H (137-145) mmol/L Potassium 4.4 (3.6-5.0) mmol/L Chloride 108.5 H (98-107) mmol/L Carbon Dioxide 23 (22-30) mmol/L BUN 20 (9-20) mg/dL Creatinine 0.5 L (0.8-1.5) mg/dL Glucose 146 H (75-100) mg/dL Calcium 8.2 L (8.4-10.2) mg/dL Calcium panel 05/12/16 Range/Units 07:33 Calcium 8.2 L (8.4-10.2) mg/dL Pituitary panel 05/12/16 Range/Units 07:33 Sodium 148 H (137-145) mmol/L Potassium 4.4 (3.6-5.0) mmol/L Chloride 108.5 H (98-107) mmol/L Carbon Dioxide 23 (22-30) mmol/L BUN 20 (9-20) mg/dL Creatinine 0.5 L (0.8-1.5) mg/dL Glucose 146 H (75-100) mg/dL Calcium 8.2 L (8.4-10.2) mg/dL Adrenal panel 05/12/16 Range/Units 07:33 Sodium 148 H (137-145) mmol/L Potassium 4.4 (3.6-5.0) mmol/L Chloride 108.5 H (98-107) mmol/L Carbon Dioxide 23 (22-30) mmol/L BUN 20 (9-20) mg/dL Creatinine 0.5 L (0.8-1.5) mg/dL Glucose 146 H (75-100) mg/dL Calcium 8.2 L (8.4-10.2) mg/dL
[2016-05-12] MEDS: KEPPRA PO SCH ×2 (09:21→21:25)
[2016-05-12] MEDS: CORDARONE PO SCH (09:22)
[2016-05-12] MEDS: PEPCID PO SCH ×2 (09:22→21:27)
[2016-05-12] MEDS: NORVASC PO SCH (09:22)
[2016-05-12] MEDS: LEVEMIR SUB-Q SCH (09:22)
[2016-05-12] MEDS: ZESTRIL PO SCH ×2 (09:23→21:57)
[2016-05-12] MEDS ORDERED: HEPARIN/ 0.45% NACL-25,000 UNIT/500 ML 500 ML IV SCH (11:00)
[2016-05-12 11:18] LABS: Hematocrit 29.2 % (35.5-45.6); Hemoglobin 9.2 gm/dl (11.8-15.2)
[2016-05-12 11:28] LABS: INR 1.07 (0.87-1.13)
[2016-05-12 11:29] LABS: Partial Thromboplastin Time 27.2 Sec. (24.2-36.6)
--- NOTE | 2016-05-12 11:32 | Progress Note ---
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 Acute CVA LIZZIE - very dense echo contrast noted in the thoracic aorta consistent with low flow state, severe concentric LVH, normal functioning bioprosthetic aortic valve. Coumadin on hold Acute drop in anemia requiring blood transfusion IV heparin held. Coumadin held Abnormal ECG no significant CAD by [facility] 08/2015 Hx of aortic dissection s/p repair Hx of bioprosthetic aortic valve replacement Hypertension Plan: Conservative cardiac management Subjective Date of service: 05/12/16 Principal diagnosis: CVA, acute respiratory failure Interval history: No interval changes. Sinus rhythm on telemetry. Objective Vital Signs Temp Pulse Pulse Pulse Pulse Pulse Resp 05/12/16 09:23 73 05/12/16 09:22 74 05/12/16 09:00 73 17 05/12/16 08:22 05/12/16 08:21 78 05/12/16 08:14 78 05/12/16 08:07 77 05/12/16 08:00 98.1 F 79 79 16 05/12/16 07:00 77 15 05/12/16 06:00 76 15 05/12/16 05:51 76 12 05/12/16 05:50 77 13 05/12/16 05:00 80 14 05/12/16 04:51 81 15 05/12/16 04:08 72 05/12/16 04:00 99.0 F 74 73 73 14 05/12/16 03:01 75 05/12/16 03:00 74 14 05/12/16 02:50 76 05/12/16 02:06 77 21 05/12/16 02:00 76 21 05/12/16 01:14 78 20 05/12/16 01:00 76 21 05/12/16 00:04 72 05/12/16 00:00 99.6 F 72 77 77 19 05/11/16 23:42 05/11/16 23:00 74 22 05/11/16 22:03 72 19 05/11/16 22:00 73 20 05/11/16 21:13 77 05/11/16 21:00 78 21 05/11/16 20:31 78 19 05/11/16 20:00 81 79 79 12 05/11/16 19:52 99.8 F H 05/11/16 19:48 82 05/11/16 19:38 83 05/11/16 19:37 84 05/11/16 19:00 85 23 05/11/16 18:05 19 05/11/16 18:00 87 24 05/11/16 17:59 86 22 05/11/16 17:13 83 27 H 05/11/16 17:00 82 22 05/11/16 16:20 84 84 21 05/11/16 16:00 97.5 F L 75 20 05/11/16 15:55 05/11/16 15:40 74 05/11/16 15:01 78 22 05/11/16 15:00 78 20 05/11/16 14:52 77 20 05/11/16 14:34 79 20 05/11/16 14:20 18 05/11/16 14:01 85 05/11/16 14:00 87 10 L 05/11/16 13:47 84 17 05/11/16 13:27 78 05/11/16 13:12 788 H 05/11/16 13:01 86 13 05/11/16 12:16 98.2 F 05/11/16 12:12 93 H 24 05/11/16 12:00 92 H 21 05/11/16 11:51 92 H 92 H 21 05/11/16 11:47 91 H 05/11/16 11:44 92 H 20 Resp Resp BP Pulse Ox Pulse Ox 05/12/16 09:23 137/81 05/12/16 09:22 137/81 05/12/16 09:00 137/81 96 05/12/16 08:22 96 05/12/16 08:21 18 05/12/16 08:14 149/86 94 05/12/16 08:07 149/86 05/12/16 08:00 149/86 96 05/12/16 07:00 148/85 93 05/12/16 06:00 139/84 98 05/12/16 05:51 152/87 99 05/12/16 05:50 140/78 100 05/12/16 05:00 152/87 99 05/12/16 04:51 133/78 95 05/12/16 04:08 133/78 97 05/12/16 04:00 133/78 97 05/12/16 03:01 14 05/12/16 03:00 140/78 97 05/12/16 02:50 14 05/12/16 02:06 135/82 99 05/12/16 02:00 135/82 99 05/12/16 01:14 124/72 97 05/12/16 01:00 124/72 05/12/16 00:04 120/72 100 05/12/16 00:00 120/72 99 05/11/16 23:42 99 05/11/16 23:00 118/78 99 05/11/16 22:03 113/72 100 05/11/16 22:00 113/72 99 05/11/16 21:13 127/79 05/11/16 21:00 127/79 100 05/11/16 20:31 112/77 99 05/11/16 20:00 112/77 99 05/11/16 19:52 05/11/16 19:48 16 05/11/16 19:38 128/81 100 05/11/16 19:37 12 05/11/16 19:00 128/81 05/11/16 18:05 99 05/11/16 18:00 121/73 05/11/16 17:59 105/69 99 05/11/16 17:13 105/69 100 05/11/16 17:00 105/69 100 05/11/16 16:20 99 05/11/16 16:00 94/61 05/11/16 15:55 96 05/11/16 15:40 99/66 100 05/11/16 15:01 99/66 100 05/11/16 15:00 99/66 05/11/16 14:52 114/68 100 05/11/16 14:34 114/68 100 05/11/16 14:20 100 05/11/16 14:01 113/76 05/11/16 14:00 114/68 96 05/11/16 13:47 113/76 100 05/11/16 13:27 20 05/11/16 13:12 18 05/11/16 13:01 103/69 100 05/11/16 12:16 05/11/16 12:12 103/ 100 05/11/16 12:00 /05/11/16 11:51 100 05/11/16 11:47 114/74 98 05/11/16 11:44 114/74 99 - Physical Examination General: Other (vent to trach) Cardiac: Positive: Reg Rate and Rhythm - Labs and Meds Coagulation 05/12/16 Range/Units 11:01 PT 13.8 (12.2-14.9) Sec. INR 1.07 (0.87-1.13) APTT 27.2 (24.2-36.6) Sec. CBC 05/12/16 Range/Units 11:01 Hgb 9.2 L (11.8-15.2) gm/dl Hct 29.2 L (35.5-45.6) % Plt Count 503 H (140-440) K/mm3 Comprehensive Metabolic Panel 05/12/16 Range/Units 07:33 Sodium 148 H (137-145) mmol/L Potassium 4.4 (3.6-5.0) mmol/L Chloride 108.5 H (98-107) mmol/L Carbon Dioxide 23 (22-30) mmol/L BUN 20 (9-20) mg/dL Creatinine 0.5 L (0.8-1.5) mg/dL Glucose 146 H (75-100) mg/dL Calcium 8.2 L (8.4-10.2) mg/dL - Imaging and Cardiology EKG: image reviewed
--- NOTE | 2016-05-12 11:57 | Progress Note ---
Assessment and Plan Imp: 1. Acute CVA 2. Acute respiratory failure, hypoxia 3. S/p Trach 4. UTI 5. Sepsis 6. R/o Neck cellulitis per CT neck findings 7. Hypernatremia Rec: 1. Minimize sedation 2. Okay to resume heparin without bolus per surgery; monitor 3. Surgery f/u re: trach 4. Broadened ABX to Zosyn day #3 to cover UTI and any possible soft tissue infection 5. Resume SBT; d/w RT 6. SCDs ordered 7. TFs -> increased free water 8. Placement when able to secure benefits No family present Subjective Date of service: 05/12/16 Principal diagnosis: CVA, acute respiratory failure Interval history: + Bleeding around trach resolved. He is on ventilator, poorly responsive, critically ill. Active Medications Acetaminophen (Tylenol) 650 mg PO Q4H PRN PRN Reason: Pain MILD(1-3)/Fever >100.5/DUVAL Last Admin: 05/08/16 19:44 Dose: 650 mg Albuterol/Ipratropium (Duoneb 0.5 Mg-3 Mg/3 Ml Soln) 1 ampul IH Q6HRT [facility] Last Admin: 05/12/16 15:12 Dose: 1 ampul Amiodarone HCl (Cordarone) 200 mg PO DAILY [facility] Last Admin: 05/12/16 09:22 Dose: 200 mg Amlodipine Besylate (Norvasc) 10 mg PO DAILY [facility] Last Admin: 05/12/16 09:22 Dose: 10 mg Lipase/Protease/Amylase (Pancreaze Dr 10,500 Unit) 1 each FEEDTUBE PRN PRN PRN Reason: For Clogged Feeding Tube Atorvastatin Calcium (Lipitor) 10 mg PO QHS [facility] Last Admin: 05/11/16 21:17 Dose: 10 mg Bisacodyl (Dulcolax) 10 mg NC QDAY PRN PRN Reason: Constipation unrelieved by MOM Dextrose (D50w (25gm)) 50 ml IV PRN PRN PRN Reason: Hypoglycemia Last Admin: 04/22/16 05:48 Dose: 50 ml Famotidine (Pepcid) 20 mg PO BID [facility] Last Admin: 05/12/16 09:22 Dose: 20 mg Hydralazine HCl (Apresoline) 20 mg IV Q6H PRN PRN Reason: PRN SBP > 150 Last Admin: 04/23/16 00:38 Dose: 20 mg Hydrophilic Ointment (Vaseline Lip Therapy) 1 applic TP Q2HR PRN PRN Reason: Dry Lips Piperacillin Sod/Tazobactam Sod (Zosyn/Ns 4.5gm/100ml) 100 mls @ 200 mls/hr IV Q6HR [facility] Stop: 05/17/16 12:59 Last Admin: 05/12/16 18:42 Dose: 200 mls/hr Heparin Sodium/Sodium Chloride (Heparin/ 0.45% Nacl-25,000 Unit/500 Ml) 500 mls @ 18 mls/hr IV TITR ANA LUISA; 900 UNITS/HR PRN Reason: Protocol Last Admin: 05/12/16 11:22 Dose: 18 mls/hr Insulin Aspart (Novolog) 0 units SUB-Q Q6HR ANA LUISA PRN Reason: Protocol Last Admin: 05/12/16 18:31 Dose: Not Given Insulin Detemir (Levemir) 40 units SUB-Q DAILY [facility] Last Admin: 05/12/16 09:22 Dose: 40 units Labetalol HCl (Normodyne) 400 mg PO TID [facility] Last Admin: 05/12/16 13:40 Dose: 400 mg Levetiracetam (Keppra) 500 mg PO BID [facility] Last Admin: 05/12/16 09:21 Dose: 500 mg Lisinopril (Zestril) 40 mg PO BID [facility] Last Admin: 05/12/16 09:23 Dose: Not Given Magnesium Hydroxide (Milk Of Magnesia) 30 ml PO Q4H PRN PRN Reason: Constipation Last Admin: 04/25/16 06:21 Dose: 30 ml Metoclopramide HCl (Reglan) 5 mg IV Q6H PRN PRN Reason: TUBE FEED RESIDUAL Last Admin: 04/25/16 06:21 Dose: 5 mg Multi-Ingred Cream/Lotion/Oil/Oint (Artificial Tears Ophth Oint) 1 applic OU Q4HR PRN PRN Reason: Dry Eye(s) Ondansetron HCl (Zofran) 4 mg IV Q8H PRN PRN Reason: N/V unrelieved by Reglan Last Admin: 04/20/16 21:53 Dose: 4 mg Simple Syrup (Simple Syrup) 15 ml FEEDTUBE PRN PRN PRN Reason: Hypoglycemia Last Admin: 05/08/16 17:53 Dose: 15 ml Simple Syrup (Simple Syrup) 30 ml FEEDTUBE PRN PRN PRN Reason: Hypoglycemia Sodium Bicarbonate (Sodium Bicarbonate) 325 mg FEEDTUBE PRN PRN PRN Reason: For Clogged Feeding Tube Sodium Chloride (Nacl 0.9% 500 Ml) 1 ml IV DIRECT ANA LUISA Warfarin Sodium (Coumadin Pharmacy To Dose) 1 each PO PKCONSULT ANA LUISA PRN Reason: Protocol Objective Vital Signs - 12hr 05/12/16 05/12/16 05/12/16 00:00 00:04 01:00 Temperature 99.6 F Pulse Rate 72 72 76 Pulse Rate [ Anterior Bilateral Throughout] Pulse Rate [ 77 Apical] Pulse Rate [ Bilateral] Pulse Rate [ 77 From Monitor] Respiratory 19 21 Rate Respiratory Rate [Anterior Bilateral Throughout] Respiratory Rate [Bilateral ] Blood Pressure 120/72 120/72 124/72 O2 Sat by Pulse 99 100 Oximetry O2 Sat by Pulse Oximetry [ Assessment] 05/12/16 05/12/16 05/12/16 01:14 02:00 02:06 Temperature Pulse Rate 78 76 77 Pulse Rate [ Anterior Bilateral Throughout] Pulse Rate [ Apical] Pulse Rate [ Bilateral] Pulse Rate [ From Monitor] Respiratory 20 21 21 Rate Respiratory Rate [Anterior Bilateral Throughout] Respiratory Rate [Bilateral ] Blood Pressure 124/72 135/82 135/82 O2 Sat by Pulse 97 99 99 Oximetry O2 Sat by Pulse Oximetry [ Assessment] 05/12/16 05/12/16 05/12/16 02:50 03:00 03:01 Temperature Pulse Rate 74 Pulse Rate [ 76 75 Anterior Bilateral Throughout] Pulse Rate [ Apical] Pulse Rate [ Bilateral] Pulse Rate [ From Monitor] Respiratory 14 Rate Respiratory 14 14 Rate [Anterior Bilateral Throughout] Respiratory Rate [Bilateral ] Blood Pressure 140/78 O2 Sat by Pulse 97 Oximetry O2 Sat by Pulse Oximetry [ Assessment] 05/12/16 05/12/16 05/12/16 04:00 04:08 04:51 Temperature 99.0 F Pulse Rate 74 72 81 Pulse Rate [ Anterior Bilateral Throughout] Pulse Rate [ 73 Apical] Pulse Rate [ Bilateral] Pulse Rate [ 73 From Monitor] Respiratory 14 15 Rate Respiratory Rate [Anterior Bilateral Throughout] Respiratory Rate [Bilateral ] Blood Pressure 133/78 133/78 133/78 O2 Sat by Pulse 97 97 95 Oximetry O2 Sat by Pulse Oximetry [ Assessment] 05/12/16 05/12/16 05/12/16 05:00 05:50 05:51 Temperature Pulse Rate 80 77 76 Pulse Rate [ Anterior Bilateral Throughout] Pulse Rate [ Apical] Pulse Rate [ Bilateral] Pulse Rate [ From Monitor] Respiratory 14 13 12 Rate Respiratory Rate [Anterior Bilateral Throughout] Respiratory Rate [Bilateral ] Blood Pressure 152/87 140/78 152/87 O2 Sat by Pulse 99 100 99 Oximetry O2 Sat by Pulse Oximetry [ Assessment] 05/12/16 05/12/16 05/12/16 06:00 07:00 08:00 Temperature 98.1 F Pulse Rate 76 77 79 Pulse Rate [ Anterior Bilateral Throughout] Pulse Rate [ Apical] Pulse Rate [ Bilateral] Pulse Rate [ 79 From Monitor] Respiratory 15 15 16 Rate Respiratory Rate [Anterior Bilateral Throughout] Respiratory Rate [Bilateral ] Blood Pressure 139/84 148/85 149/86 O2 Sat by Pulse 98 93 96 Oximetry O2 Sat by Pulse Oximetry [ Assessment] 05/12/16 05/12/16 05/12/16 08:07 08:14 08:21 Temperature Pulse Rate 77 78 Pulse Rate [ Anterior Bilateral Throughout] Pulse Rate [ Apical] Pulse Rate [ 78 Bilateral] Pulse Rate [ From Monitor] Respiratory Rate Respiratory Rate [Anterior Bilateral Throughout] Respiratory 18 Rate [Bilateral ] Blood Pressure 149/86 149/86 O2 Sat by Pulse 94 Oximetry O2 Sat by Pulse Oximetry [ Assessment] 05/12/16 05/12/16 05/12/16 08:22 09:00 09:22 Temperature Pulse Rate 73 74 Pulse Rate [ Anterior Bilateral Throughout] Pulse Rate [ Apical] Pulse Rate [ Bilateral] Pulse Rate [ From Monitor] Respiratory 17 Rate Respiratory Rate [Anterior Bilateral Throughout] Respiratory Rate [Bilateral ] Blood Pressure 137/81 137/81 O2 Sat by Pulse 96 Oximetry O2 Sat by Pulse 96 Oximetry [ Assessment] 05/12/16 05/12/16 05/12/16 09:23 09:51 10:00 Temperature Pulse Rate 73 76 76 Pulse Rate [ Anterior Bilateral Throughout] Pulse Rate [ Apical] Pulse Rate [ Bilateral] Pulse Rate [ From Monitor] Respiratory 21 21 Rate Respiratory Rate [Anterior Bilateral Throughout] Respiratory Rate [Bilateral ] Blood Pressure 137/81 137/81 136/81 O2 Sat by Pulse 94 96 Oximetry O2 Sat by Pulse Oximetry [ Assessment] 05/12/16 11:00 Temperature Pulse Rate 79 Pulse Rate [ Anterior Bilateral Throughout] Pulse Rate [ Apical] Pulse Rate [ Bilateral] Pulse Rate [ From Monitor] Respiratory 21 Rate Respiratory Rate [Anterior Bilateral Throughout] Respiratory Rate [Bilateral ] Blood Pressure 130/79 O2 Sat by Pulse 97 Oximetry O2 Sat by Pulse Oximetry [ Assessment] Constitutional: no acute distress, other (opens eyes, not following commands for me) Eyes: non-icteric ENT: other (tracheotomy) Neck: other (swelling/large bandage in place) Effort: normal Ascultation: Bilateral: other (coarse BS bilaterally) Cardiovascular: regular rate and rhythm (no mrg) Gastrointestinal: normoactive bowel sounds, soft, non-tender Extremities: no cyanosis, no edema Neurologic: other (eyes open, not following commands or moving extremities for me) Psychiatric: other (unable to assess) CBC and BMP: 05/12/16 11:01 05/12/16 07:33 ABG, PT/INR, D-dimer: ABG POC ABG pH 7.511 (7.35-7.45) H 05/06/16 05:30 POC ABG pCO2 36.2 (35-45) 05/06/16 05:30 POC ABG pO2 92 (80-105) 05/06/16 05:30 POC ABG HCO3 28.9 05/06/16 05:30 POC ABG Total CO2 30 05/06/16 05:30 POC ABG O2 Sat 98 05/06/16 05:30 PT/INR, D-dimer PT 13.8 Sec. (12.2-14.9) 05/12/16 11:01 INR 1.07 (0.87-1.13) 05/12/16 11:01 Abnormal lab findings: Abnormal Labs 03/24/16 03/24/16 03/24/16 17:58 20:25 23:23 WBC RBC Hgb Hct MCV MCH MCHC RDW Plt Count Lymph % (Auto) [place] % (Auto) Lymph # [place] # Baso # Seg Neutrophils % Seg Neuts % (Manual) Lymphocytes % (Manual) Monocytes % (Manual) Seg Neutrophils # Seg Neutrophils # Man Lymphocytes # (Manual) Monocytes # (Manual) Basophils # (Manual) Percent Retic PT INR APTT Heparin Anti-Xa Level POC ABG pH POC ABG pCO2 POC ABG pO2 Sodium 169 H* Potassium 3.5 L Chloride 130.3 H Carbon Dioxide BUN 28 H Creatinine 1.8 H Glucose POC Glucose 112 H Calcium Phosphorus Iron TIBC Lactate Dehydrogenase Total Creatine Kinase NT-Pro-B Natriuret Pep Total Protein Albumin Xmtyb-2-Mbletviwt Ucrlo-1-Uoxmlphcw Beta Globulins PEP Interpretation Cholesterol 221 H LDL Cholesterol Direct 146 H Vitamin B12 Urine WBC (Auto) Urine Creatinine Crossmatch 03/25/16 03/25/16 03/25/16 05:56 05:56 05:56 WBC 21.3 H RBC 6.32 H Hgb 16.7 H Hct 52.7 H MCV 83 L MCH 27 L MCHC RDW Plt Count Lymph % (Auto) [place] % (Auto) Lymph # [place] # Baso # Seg Neutrophils % Seg Neuts % (Manual) 91.0 H Lymphocytes % (Manual) 4.0 L Monocytes % (Manual) Seg Neutrophils # Seg Neutrophils # Man 19.4 H Lymphocytes # (Manual) 0.9 L Monocytes # (Manual) 0.9 H Basophils # (Manual) Percent Retic PT INR APTT Heparin Anti-Xa Level POC ABG pH POC ABG pCO2 POC ABG pO2 Sodium 172 H* Potassium 3.5 L Chloride 130.4 H Carbon Dioxide BUN 29 H Creatinine 1.8 H Glucose 187 H POC Glucose Calcium Phosphorus Iron TIBC Lactate Dehydrogenase 460 H Total Creatine Kinase NT-Pro-B Natriuret Pep Total Protein Albumin Wlcvf-4-Ckwohulwt Fccxc-4-Zciisqksw Beta Globulins PEP Interpretation Cholesterol LDL Cholesterol Direct Vitamin B12 Urine WBC (Auto) Urine Creatinine Crossmatch 03/25/16 03/25/16 03/25/16 07:55 12:19 13:00 WBC RBC Hgb Hct MCV MCH MCHC RDW Plt Count Lymph % (Auto) [place] % (Auto) Lymph # [place] # Baso # Seg Neutrophils % Seg Neuts % (Manual) Lymphocytes % (Manual) Monocytes % (Manual) Seg Neutrophils # Seg Neutrophils # Man Lymphocytes # (Manual) Monocytes # (Manual) Basophils # (Manual) Percent Retic PT INR APTT Heparin Anti-Xa Level POC ABG pH POC ABG pCO2 POC ABG pO2 Sodium Potassium Chloride Carbon Dioxide BUN Creatinine Glucose POC Glucose 231 H 314 H Calcium Phosphorus Iron TIBC Lactate Dehydrogenase Total Creatine Kinase NT-Pro-B Natriuret Pep Total Protein Albumin 3.4 L Gfitb-5-Zurqbevvi 0.4 H Jmdzf-6-Adskhllos 1.1 H Beta Globulins 0.6 H PEP Interpretation see below H Cholesterol LDL Cholesterol Direct Vitamin B12 Urine WBC (Auto) Urine Creatinine Crossmatch 03/25/16 03/25/16 03/26/16 16:41 22:45 08:32 WBC RBC Hgb Hct MCV MCH MCHC RDW Plt Count Lymph % (Auto) [place] % (Auto) Lymph # [place] # Baso # Seg Neutrophils % Seg Neuts % (Manual) Lymphocytes % (Manual) Monocytes % (Manual) Seg Neutrophils # Seg Neutrophils # Man Lymphocytes # (Manual) Monocytes # (Manual) Basophils # (Manual) Percent Retic PT INR APTT Heparin Anti-Xa Level POC ABG pH POC ABG pCO2 POC ABG pO2 Sodium Potassium Chloride Carbon Dioxide BUN Creatinine Glucose POC Glucose 444 H 326 H 360 H Calcium Phosphorus Iron TIBC Lactate Dehydrogenase Total Creatine Kinase NT-Pro-B Natriuret Pep Total Protein Albumin Gstuj-2-Jajoxxfmx Qrwbr-8-Utzklbinl Beta Globulins PEP Interpretation Cholesterol LDL Cholesterol Direct Vitamin B12 Urine WBC (Auto) Urine Creatinine Crossmatch 03/26/16 03/26/16 03/26/16 12:38 15:33 15:47 WBC RBC Hgb Hct MCV MCH MCHC RDW Plt Count Lymph % (Auto) [place] % (Auto) Lymph # [place] # Baso # Seg Neutrophils % Seg Neuts % (Manual) Lymphocytes % (Manual) Monocytes % (Manual) Seg Neutrophils # Seg Neutrophils # Man Lymphocytes # (Manual) Monocytes # (Manual) Basophils # (Manual) Percent Retic PT INR APTT Heparin Anti-Xa Level POC ABG pH 7.511 H POC ABG pCO2 26.5 L POC ABG pO2 70 L Sodium Potassium Chloride Carbon Dioxide BUN Creatinine Glucose POC Glucose 280 H 174 H Calcium Phosphorus Iron TIBC Lactate Dehydrogenase Total Creatine Kinase NT-Pro-B Natriuret Pep Total Protein Albumin Kadwv-5-Jwwtspcec Swgca-3-Hsrcdavwr Beta Globulins PEP Interpretation Cholesterol LDL Cholesterol Direct Vitamin B12 Urine WBC (Auto) Urine Creatinine Crossmatch 03/26/16 03/26/16 03/26/16 16:47 16:47 18:51 WBC 14.0 H RBC 5.17 H Hgb Hct MCV MCH 26 L MCHC 31 L RDW Plt Count 139 L Lymph % (Auto) [place] % (Auto) Lymph # [place] # Baso # Seg Neutrophils % Seg Neuts % (Manual) Lymphocytes % (Manual) Monocytes % (Manual) Seg Neutrophils # Seg Neutrophils # Man Lymphocytes # (Manual) Monocytes # (Manual) Basophils # (Manual) Percent Retic PT INR APTT Heparin Anti-Xa Level POC ABG pH POC ABG pCO2 33.9 L POC ABG pO2 150 H Sodium 164 H* Potassium 3.4 L Chloride 128.5 H Carbon Dioxide BUN 30 H Creatinine 2.2 H Glucose 121 H POC Glucose Calcium 8.1 L Phosphorus Iron TIBC Lactate Dehydrogenase Total Creatine Kinase NT-Pro-B Natriuret Pep Total Protein Albumin Bzygm-4-Yxmqzpfpl Jjjdn-4-Szkysuciy Beta Globulins PEP Interpretation Cholesterol LDL Cholesterol Direct Vitamin B12 Urine WBC (Auto) Urine Creatinine Crossmatch 03/27/16 03/27/16 03/27/16 02:19 05:47 06:02 WBC RBC Hgb Hct MCV MCH MCHC RDW Plt Count Lymph % (Auto) [place] % (Auto) Lymph # [place] # Baso # Seg Neutrophils % Seg Neuts % (Manual) Lymphocytes % (Manual) Monocytes % (Manual) Seg Neutrophils # Seg Neutrophils # Man Lymphocytes # (Manual) Monocytes # (Manual) Basophils # (Manual) Percent Retic PT INR APTT Heparin Anti-Xa Level POC ABG pH POC ABG pCO2 27.3 L 30.3 L POC ABG pO2 50 L 112 H Sodium 158 H Potassium Chloride 126.7 H Carbon Dioxide 20 L BUN 25 H Creatinine 1.7 H Glucose POC Glucose Calcium 7.0 L Phosphorus Iron TIBC Lactate Dehydrogenase Total Creatine Kinase NT-Pro-B Natriuret Pep Total Protein Albumin Hqvpn-4-Wrddglumu Ljjjy-0-Ephgamfku Beta Globulins PEP Interpretation Cholesterol LDL Cholesterol Direct Vitamin B12 Urine WBC (Auto) Urine Creatinine Crossmatch 03/27/16 03/27/16 03/27/16 07:51 09:20 11:45 WBC 14.2 H RBC Hgb Hct MCV 83 L MCH 27 L MCHC RDW Plt Count 113 L Lymph % (Auto) [place] % (Auto) Lymph # [place] # Baso # Seg Neutrophils % Seg Neuts % (Manual) Lymphocytes % (Manual) Monocytes % (Manual) Seg Neutrophils # Seg Neutrophils # Man Lymphocytes # (Manual) Monocytes # (Manual) Basophils # (Manual) Percent Retic PT INR APTT Heparin Anti-Xa Level POC ABG pH POC ABG pCO2 POC ABG pO2 Sodium Potassium Chloride Carbon Dioxide BUN Creatinine Glucose POC Glucose 124 H 241 H Calcium Phosphorus Iron TIBC Lactate Dehydrogenase Total Creatine Kinase NT-Pro-B Natriuret Pep Total Protein Albumin Dslmi-1-Yvdkjisff Amizc-8-Iwdnylzgy Beta Globulins PEP Interpretation Cholesterol LDL Cholesterol Direct Vitamin B12 Urine WBC (Auto) Urine Creatinine Crossmatch 03/27/16 03/27/16 03/28/16 16:39 22:03 03:29 WBC RBC Hgb Hct MCV MCH MCHC RDW Plt Count Lymph % (Auto) [place] % (Auto) Lymph # [place] # Baso # Seg Neutrophils % Seg Neuts % (Manual) Lymphocytes % (Manual) Monocytes % (Manual) Seg Neutrophils # Seg Neutrophils # Man Lymphocytes # (Manual) Monocytes # (Manual) Basophils # (Manual) Percent Retic PT INR APTT Heparin Anti-Xa Level POC ABG pH POC ABG pCO2 POC ABG pO2 Sodium Potassium Chloride Carbon Dioxide BUN Creatinine Glucose POC Glucose 266 H 167 H 241 H Calcium Phosphorus Iron TIBC Lactate Dehydrogenase Total Creatine Kinase NT-Pro-B Natriuret Pep Total Protein Albumin Fpwpi-3-Hifesbvjx Jpivw-1-Nrxeyrtls Beta Globulins PEP Interpretation Cholesterol LDL Cholesterol Direct Vitamin B12 Urine WBC (Auto) Urine Creatinine Crossmatch 03/28/16 03/28/16 03/28/16 05:00 05:00 05:00 WBC RBC Hgb Hct MCV 83 L MCH 27 L MCHC RDW Plt Count 106 L Lymph % (Auto) [place] % (Auto) 10.1 H Lymph # [place] # 1.0 H Baso # Seg Neutrophils % 75.1 H Seg Neuts % (Manual) Lymphocytes % (Manual) Monocytes % (Manual) Seg Neutrophils # Seg Neutrophils # Man Lymphocytes # (Manual) Monocytes # (Manual) Basophils # (Manual) Percent Retic PT INR APTT Heparin Anti-Xa Level POC ABG pH POC ABG pCO2 POC ABG pO2 Sodium 147 H D Potassium 3.1 L D Chloride 112.3 H Carbon Dioxide 21 L BUN Creatinine Glucose 208 H POC Glucose Calcium 7.0 L Phosphorus 2.2 L Iron TIBC Lactate Dehydrogenase Total Creatine Kinase NT-Pro-B Natriuret Pep Total Protein Albumin Nceph-0-Mlsiwrkcb Oybcd-8-Czfhggbpe Beta Globulins PEP Interpretation Cholesterol LDL Cholesterol Direct Vitamin B12 Urine WBC (Auto) Urine Creatinine Crossmatch 03/28/16 03/28/16 03/28/16 05:14 08:41 10:56 WBC RBC Hgb Hct MCV MCH MCHC RDW Plt Count Lymph % (Auto) [place] % (Auto) Lymph # [place] # Baso # Seg Neutrophils % Seg Neuts % (Manual) Lymphocytes % (Manual) Monocytes % (Manual) Seg Neutrophils # Seg Neutrophils # Man Lymphocytes # (Manual) Monocytes # (Manual) Basophils # (Manual) Percent Retic PT INR APTT Heparin Anti-Xa Level POC ABG pH 7.457 H POC ABG pCO2 29.7 L 27.7 L POC ABG pO2 Sodium Potassium Chloride Carbon Dioxide BUN Creatinine Glucose POC Glucose 228 H Calcium Phosphorus Iron TIBC Lactate Dehydrogenase Total Creatine Kinase NT-Pro-B Natriuret Pep Total Protein Albumin Xkxvy-8-Lgycjvuyu Isoaq-0-Mnetlbynj Beta Globulins PEP Interpretation Cholesterol LDL Cholesterol Direct Vitamin B12 Urine WBC (Auto) Urine Creatinine Crossmatch 03/28/16 03/28/16 03/28/16 11:37 13:29 16:22 WBC RBC Hgb Hct MCV MCH MCHC RDW Plt Count Lymph % (Auto) [place] % (Auto) Lymph # [place] # Baso # Seg Neutrophils % Seg Neuts % (Manual) Lymphocytes % (Manual) Monocytes % (Manual) Seg Neutrophils # Seg Neutrophils # Man Lymphocytes # (Manual) Monocytes # (Manual) Basophils # (Manual) Percent Retic PT INR APTT Heparin Anti-Xa Level POC ABG pH POC ABG pCO2 POC ABG pO2 Sodium Potassium Chloride Carbon Dioxide BUN Creatinine Glucose POC Glucose 226 H 200 H Calcium Phosphorus Iron TIBC Lactate Dehydrogenase Total Creatine Kinase 356 H NT-Pro-B Natriuret Pep Total Protein Albumin Rwrdv-2-Qegvsqqnu Fgcyh-0-Utfzxkaxt Beta Globulins PEP Interpretation Cholesterol LDL Cholesterol Direct Vitamin B12 Urine WBC (Auto) Urine Creatinine Crossmatch 03/28/16 03/29/16 03/29/16 21:48 04:50 04:50 WBC RBC Hgb 11.5 L Hct 35.3 L MCV 81 L MCH 26 L MCHC RDW Plt Count 97 L Lymph % (Auto) [place] % (Auto) 11.7 H Lymph # [place] # 1.1 H Baso # Seg Neutrophils % Seg Neuts % (Manual) Lymphocytes % (Manual) Monocytes % (Manual) Seg Neutrophils # Seg Neutrophils # Man Lymphocytes # (Manual) Monocytes # (Manual) Basophils # (Manual) Percent Retic PT INR APTT Heparin Anti-Xa Level POC ABG pH POC ABG pCO2 POC ABG pO2 Sodium 136 L D Potassium 3.3 L Chloride Carbon Dioxide 20 L BUN Creatinine Glucose 386 H POC Glucose 188 H Calcium 6.8 L Phosphorus 1.6 L D Iron TIBC Lactate Dehydrogenase Total Creatine Kinase NT-Pro-B Natriuret Pep Total Protein Albumin Wbhjc-0-Qafqkjock Dvxyw-6-Mwboyeszd Beta Globulins PEP Interpretation Cholesterol LDL Cholesterol Direct Vitamin B12 Urine WBC (Auto) Urine Creatinine Crossmatch 03/29/16 03/29/16 03/29/16 08:10 11:12 16:09 WBC RBC Hgb Hct MCV MCH MCHC RDW Plt Count Lymph % (Auto) [place] % (Auto) Lymph # [place] # Baso # Seg Neutrophils % Seg Neuts % (Manual) Lymphocytes % (Manual) Monocytes % (Manual) Seg Neutrophils # Seg Neutrophils # Man Lymphocytes # (Manual) Monocytes # (Manual) Basophils # (Manual) Percent Retic PT INR APTT Heparin Anti-Xa Level POC ABG pH POC ABG pCO2 POC ABG pO2 Sodium Potassium Chloride Carbon Dioxide BUN Creatinine Glucose POC Glucose 230 H 180 H 46 L Calcium Phosphorus Iron TIBC Lactate Dehydrogenase Total Creatine Kinase NT-Pro-B Natriuret Pep Total Protein Albumin Pftli-4-Kujinezbz Dnudz-7-Rtfzcvmxr Beta Globulins PEP Interpretation Cholesterol LDL Cholesterol Direct Vitamin B12 Urine WBC (Auto) Urine Creatinine Crossmatch 03/29/16 03/29/16 03/30/16 16:12 18:15 02:53 WBC RBC Hgb Hct MCV MCH MCHC RDW Plt Count Lymph % (Auto) [place] % (Auto) Lymph # [place] # Baso # Seg Neutrophils % Seg Neuts % (Manual) Lymphocytes % (Manual) Monocytes % (Manual) Seg Neutrophils # Seg Neutrophils # Man Lymphocytes # (Manual) Monocytes # (Manual) Basophils # (Manual) Percent Retic PT INR APTT Heparin Anti-Xa Level POC ABG pH POC ABG pCO2 POC ABG pO2 Sodium Potassium Chloride Carbon Dioxide BUN Creatinine Glucose POC Glucose 52 L 118 H 130 H Calcium Phosphorus Iron TIBC Lactate Dehydrogenase Total Creatine Kinase NT-Pro-B Natriuret Pep Total Protein Albumin Fazcp-4-Fkjlebtsd Udkcd-6-Cpwfzasfs Beta Globulins PEP Interpretation Cholesterol LDL Cholesterol Direct Vitamin B12 Urine WBC (Auto) Urine Creatinine Crossmatch 03/30/16 03/30/16 03/30/16 04:00 04:00 05:29 WBC RBC Hgb Hct MCV 81 L MCH 26 L MCHC RDW Plt Count 116 L Lymph % (Auto) 10.8 L [place] % (Auto) 13.1 H Lymph # 1.0 L [place] # 1.3 H Baso # Seg Neutrophils % 74.2 H Seg Neuts % (Manual) Lymphocytes % (Manual) Monocytes % (Manual) Seg Neutrophils # Seg Neutrophils # Man Lymphocytes # (Manual) Monocytes # (Manual) Basophils # (Manual) Percent Retic PT INR APTT Heparin Anti-Xa Level POC ABG pH 7.522 H POC ABG pCO2 22.7 L POC ABG pO2 137 H Sodium 147 H D Potassium Chloride 115.5 H Carbon Dioxide 20 L BUN Creatinine Glucose 116 H POC Glucose Calcium 7.6 L Phosphorus 2.3 L D Iron TIBC Lactate Dehydrogenase Total Creatine Kinase NT-Pro-B Natriuret Pep Total Protein Albumin Iubjb-7-Luiydxypi Msihd-2-Cbdyrblls Beta Globulins PEP Interpretation Cholesterol LDL Cholesterol Direct Vitamin B12 Urine WBC (Auto) Urine Creatinine Crossmatch 03/30/16 03/30/16 03/30/16 05:47 08:05 08:59 WBC RBC Hgb Hct MCV MCH MCHC RDW Plt Count Lymph % (Auto) [place] % (Auto) Lymph # [place] # Baso # Seg Neutrophils % Seg Neuts % (Manual) Lymphocytes % (Manual) Monocytes % (Manual) Seg Neutrophils # Seg Neutrophils # Man Lymphocytes # (Manual) Monocytes # (Manual) Basophils # (Manual) Percent Retic PT INR APTT Heparin Anti-Xa Level POC ABG pH POC ABG pCO2 26.2 L POC ABG pO2 115 H Sodium Potassium Chloride Carbon Dioxide BUN Creatinine Glucose POC Glucose 138 H 171 H Calcium Phosphorus Iron TIBC Lactate Dehydrogenase Total Creatine Kinase NT-Pro-B Natriuret Pep Total Protein Albumin Nykph-9-Nqklyrudf Xeehn-1-Qvujxjvzx Beta Globulins PEP Interpretation Cholesterol LDL Cholesterol Direct Vitamin B12 Urine WBC (Auto) Urine Creatinine Crossmatch 03/30/16 03/30/16 03/30/16 12:11 12:11 16:39 WBC RBC Hgb Hct MCV MCH MCHC RDW Plt Count Lymph % (Auto) [place] % (Auto) Lymph # [place] # Baso # Seg Neutrophils % Seg Neuts % (Manual) Lymphocytes % (Manual) Monocytes % (Manual) Seg Neutrophils # Seg Neutrophils # Man Lymphocytes # (Manual) Monocytes # (Manual) Basophils # (Manual) Percent Retic PT INR APTT Heparin Anti-Xa Level POC ABG pH 7.476 H POC ABG pCO2 29.0 L POC ABG pO2 Sodium Potassium Chloride Carbon Dioxide BUN Creatinine Glucose POC Glucose 142 H 59 L Calcium Phosphorus Iron TIBC Lactate Dehydrogenase Total Creatine Kinase NT-Pro-B Natriuret Pep Total Protein Albumin Htmun-9-Qtnkvjyrn Opsqf-3-Vfgjdvnzz Beta Globulins PEP Interpretation Cholesterol LDL Cholesterol Direct Vitamin B12 Urine WBC (Auto) Urine Creatinine Crossmatch 03/30/16 03/30/16 03/31/16 18:41 21:59 05:02 WBC RBC Hgb Hct MCV MCH MCHC RDW Plt Count Lymph % (Auto) [place] % (Auto) Lymph # [place] # Baso # Seg Neutrophils % Seg Neuts % (Manual) Lymphocytes % (Manual) Monocytes % (Manual) Seg Neutrophils # Seg Neutrophils # Man Lymphocytes # (Manual) Monocytes # (Manual) Basophils # (Manual) Percent Retic PT INR APTT Heparin Anti-Xa Level POC ABG pH 7.519 H POC ABG pCO2 21.8 L POC ABG pO2 142 H Sodium Potassium Chloride Carbon Dioxide BUN Creatinine Glucose POC Glucose 145 H 154 H Calcium Phosphorus Iron TIBC Lactate Dehydrogenase Total Creatine Kinase NT-Pro-B Natriuret Pep Total Protein Albumin Kmtwz-0-Mljohirvh Btuiz-4-Ytzxdphlt Beta Globulins PEP Interpretation Cholesterol LDL Cholesterol Direct Vitamin B12 Urine WBC (Auto) Urine Creatinine Crossmatch 03/31/16 03/31/16 03/31/16 05:15 05:15 05:15 WBC 13.4 H RBC 5.21 H Hgb Hct MCV 81 L MCH 26 L MCHC RDW Plt Count Lymph % (Auto) 9.5 L [place] % (Auto) 14.0 H Lymph # [place] # 1.9 H Baso # Seg Neutrophils % 75.0 H Seg Neuts % (Manual) Lymphocytes % (Manual) Monocytes % (Manual) Seg Neutrophils # 10.1 H Seg Neutrophils # Man Lymphocytes # (Manual) Monocytes # (Manual) Basophils # (Manual) Percent Retic PT INR APTT Heparin Anti-Xa Level POC ABG pH POC ABG pCO2 POC ABG pO2 Sodium Potassium Chloride 108.5 H Carbon Dioxide 19 L BUN Creatinine Glucose 188 H POC Glucose Calcium Phosphorus Iron TIBC Lactate Dehydrogenase Total Creatine Kinase NT-Pro-B Natriuret Pep 1089 H Total Protein Albumin Nakau-6-Ephsciicl Yhbcl-7-Decymxond Beta Globulins PEP Interpretation Cholesterol LDL Cholesterol Direct Vitamin B12 Urine WBC (Auto) Urine Creatinine Crossmatch 03/31/16 03/31/16 03/31/16 07:23 11:12 15:20 WBC RBC Hgb Hct MCV MCH MCHC RDW Plt Count Lymph % (Auto) [place] % (Auto) Lymph # [place] # Baso # Seg Neutrophils % Seg Neuts % (Manual) Lymphocytes % (Manual) Monocytes % (Manual) Seg Neutrophils # Seg Neutrophils # Man Lymphocytes # (Manual) Monocytes # (Manual) Basophils # (Manual) Percent Retic PT INR APTT Heparin Anti-Xa Level POC ABG pH POC ABG pCO2 POC ABG pO2 Sodium Potassium Chloride Carbon Dioxide BUN Creatinine Glucose POC Glucose 233 H 228 H 208 H Calcium Phosphorus Iron TIBC Lactate Dehydrogenase Total Creatine Kinase NT-Pro-B Natriuret Pep Total Protein Albumin Livgg-6-Khadzswhh Ztwiq-3-Astolooqp Beta Globulins PEP Interpretation Cholesterol LDL Cholesterol Direct Vitamin B12 Urine WBC (Auto) Urine Creatinine Crossmatch 03/31/16 04/01/16 04/01/16 21:27 04:41 05:35 WBC 12.1 H RBC Hgb Hct MCV 81 L MCH 26 L MCHC RDW Plt Count Lymph % (Auto) 8.5 L [place] % (Auto) 14.0 H Lymph # 1.0 L [place] # 1.7 H Baso # Seg Neutrophils % 76.2 H Seg Neuts % (Manual) Lymphocytes % (Manual) Monocytes % (Manual) Seg Neutrophils # 9.2 H Seg Neutrophils # Man Lymphocytes # (Manual) Monocytes # (Manual) Basophils # (Manual) Percent Retic PT INR APTT Heparin Anti-Xa Level POC ABG pH 7.455 H POC ABG pCO2 31.0 L POC ABG pO2 Sodium Potassium Chloride Carbon Dioxide BUN Creatinine Glucose POC Glucose 162 H Calcium Phosphorus Iron TIBC Lactate Dehydrogenase Total Creatine Kinase NT-Pro-B Natriuret Pep Total Protein Albumin Dtyqy-7-Ltbxlghhc Mzuxd-7-Dlgxzkexd Beta Globulins PEP Interpretation Cholesterol LDL Cholesterol Direct Vitamin B12 Urine WBC (Auto) Urine Creatinine Crossmatch 04/01/16 04/01/16 04/01/16 05:35 08:44 12:49 WBC RBC Hgb Hct MCV MCH MCHC RDW Plt Count Lymph % (Auto) [place] % (Auto) Lymph # [place] # Baso # Seg Neutrophils % Seg Neuts % (Manual) Lymphocytes % (Manual) Monocytes % (Manual) Seg Neutrophils # Seg Neutrophils # Man Lymphocytes # (Manual) Monocytes # (Manual) Basophils # (Manual) Percent Retic PT INR APTT Heparin Anti-Xa Level POC ABG pH POC ABG pCO2 POC ABG pO2 Sodium Potassium Chloride Carbon Dioxide BUN Creatinine Glucose 256 H POC Glucose 257 H 279 H Calcium 8.0 L Phosphorus Iron TIBC Lactate Dehydrogenase Total Creatine Kinase NT-Pro-B Natriuret Pep 1205 H Total Protein Albumin Jehqf-3-Hehzyscjj Aqdwk-2-Lzeggydvs Beta Globulins PEP Interpretation Cholesterol LDL Cholesterol Direct Vitamin B12 Urine WBC (Auto) Urine Creatinine Crossmatch 04/01/16 04/02/16 04/02/16 18:12 00:42 04:17 WBC RBC Hgb Hct MCV MCH MCHC RDW Plt Count Lymph % (Auto) [place] % (Auto) Lymph # [place] # Baso # Seg Neutrophils % Seg Neuts % (Manual) Lymphocytes % (Manual) Monocytes % (Manual) Seg Neutrophils # Seg Neutrophils # Man Lymphocytes # (Manual) Monocytes # (Manual) Basophils # (Manual) Percent Retic PT INR APTT Heparin Anti-Xa Level POC ABG pH 7.582 H POC ABG pCO2 26.8 L POC ABG pO2 Sodium Potassium Chloride Carbon Dioxide BUN Creatinine Glucose POC Glucose 168 H 282 H Calcium Phosphorus Iron TIBC Lactate Dehydrogenase Total Creatine Kinase NT-Pro-B Natriuret Pep Total Protein Albumin Tfgzu-5-Maxmvhxhj Bahzj-9-Ndssywspb Beta Globulins PEP Interpretation Cholesterol LDL Cholesterol Direct Vitamin B12 Urine WBC (Auto) Urine Creatinine Crossmatch 04/02/16 04/02/16 04/02/16 05:00 05:00 06:27 WBC 12.4 H RBC Hgb Hct MCV 81 L MCH 26 L MCHC RDW Plt Count Lymph % (Auto) 6.4 L [place] % (Auto) 13.3 H Lymph # 0.8 L [place] # 1.7 H Baso # Seg Neutrophils % 79.4 H Seg Neuts % (Manual) Lymphocytes % (Manual) Monocytes % (Manual) Seg Neutrophils # 9.9 H Seg Neutrophils # Man Lymphocytes # (Manual) Monocytes # (Manual) Basophils # (Manual) Percent Retic PT INR APTT Heparin Anti-Xa Level POC ABG pH POC ABG pCO2 POC ABG pO2 Sodium 146 H Potassium Chloride Carbon Dioxide BUN Creatinine Glucose 334 H POC Glucose 317 H Calcium 8.0 L Phosphorus Iron TIBC Lactate Dehydrogenase Total Creatine Kinase NT-Pro-B Natriuret Pep Total Protein Albumin Ujwgv-6-Sizqugnmq Grstp-3-Htlmzobzp Beta Globulins PEP Interpretation Cholesterol LDL Cholesterol Direct Vitamin B12 Urine WBC (Auto) Urine Creatinine Crossmatch 04/02/16 04/02/16 04/02/16 11:51 13:10 17:24 WBC RBC Hgb Hct MCV MCH MCHC RDW Plt Count Lymph % (Auto) [place] % (Auto) Lymph # [place] # Baso # Seg Neutrophils % Seg Neuts % (Manual) Lymphocytes % (Manual) Monocytes % (Manual) Seg Neutrophils # Seg Neutrophils # Man Lymphocytes # (Manual) Monocytes # (Manual) Basophils # (Manual) Percent Retic PT INR APTT Heparin Anti-Xa Level POC ABG pH 7.518 H POC ABG pCO2 POC ABG pO2 Sodium Potassium Chloride Carbon Dioxide BUN Creatinine Glucose POC Glucose 278 H 195 H Calcium Phosphorus Iron TIBC Lactate Dehydrogenase Total Creatine Kinase NT-Pro-B Natriuret Pep Total Protein Albumin Daapd-5-Ybznoaypo Iljco-9-Tdyzaxcjz Beta Globulins PEP Interpretation Cholesterol LDL Cholesterol Direct Vitamin B12 Urine WBC (Auto) Urine Creatinine Crossmatch 04/03/16 04/03/16 04/03/16 00:18 04:10 04:10 WBC 14.3 H RBC Hgb Hct MCV 81 L MCH 26 L MCHC RDW Plt Count Lymph % (Auto) 9.0 L [place] % (Auto) 10.7 H Lymph # [place] # 1.5 H Baso # 0.2 H Seg Neutrophils % 78.5 H Seg Neuts % (Manual) Lymphocytes % (Manual) Monocytes % (Manual) Seg Neutrophils # 11.3 H Seg Neutrophils # Man Lymphocytes # (Manual) Monocytes # (Manual) Basophils # (Manual) Percent Retic PT INR APTT Heparin Anti-Xa Level POC ABG pH POC ABG pCO2 POC ABG pO2 Sodium 148 H Potassium Chloride 108.1 H Carbon Dioxide BUN 21 H Creatinine Glucose 227 H POC Glucose 144 H Calcium 8.2 L Phosphorus Iron TIBC Lactate Dehydrogenase Total Creatine Kinase NT-Pro-B Natriuret Pep Total Protein Albumin Rfnku-6-Hnbrwkruu Jcdem-9-Ihfguaqfi Beta Globulins PEP Interpretation Cholesterol LDL Cholesterol Direct Vitamin B12 Urine WBC (Auto) Urine Creatinine Crossmatch 04/03/16 04/03/1616 11:14 17:10 04:00 WBC 14.5 H RBC Hgb Hct MCV 81 L MCH 26 L MCHC RDW Plt Count Lymph % (Auto) 7.2 L [place] % (Auto) 7.6 H Lymph # 1.0 L [place] # 1.1 H Baso # Seg Neutrophils % 84.5 H Seg Neuts % (Manual) Lymphocytes % (Manual) Monocytes % (Manual) Seg Neutrophils # 12.3 H Seg Neutrophils # Man Lymphocytes # (Manual) Monocytes # (Manual) Basophils # (Manual) Percent Retic PT INR APTT Heparin Anti-Xa Level POC ABG pH POC ABG pCO2 POC ABG pO2 Sodium Potassium Chloride Carbon Dioxide BUN Creatinine Glucose POC Glucose 267 H 212 H Calcium Phosphorus Iron TIBC Lactate Dehydrogenase Total Creatine Kinase NT-Pro-B Natriuret Pep Total Protein Albumin Fxtyg-2-Fmboemzof Iuqii-2-Aowyyzhrr Beta Globulins PEP Interpretation Cholesterol LDL Cholesterol Direct Vitamin B12 Urine WBC (Auto) Urine Creatinine Crossmatch 04/04/16 04/04/16 04/04/16 05:00 09:55 09:55 WBC RBC Hgb 11.5 L Hct MCV MCH MCHC RDW Plt Count Lymph % (Auto) [place] % (Auto) Lymph # [place] # Baso # Seg Neutrophils % Seg Neuts % (Manual) Lymphocytes % (Manual) Monocytes % (Manual) Seg Neutrophils # Seg Neutrophils # Man Lymphocytes # (Manual) Monocytes # (Manual) Basophils # (Manual) Percent Retic PT INR APTT 42.1 H Heparin Anti-Xa Level POC ABG pH POC ABG pCO2 POC ABG pO2 Sodium 146 H Potassium Chloride Carbon Dioxide BUN 22 H Creatinine Glucose 128 H POC Glucose Calcium Phosphorus Iron TIBC Lactate Dehydrogenase Total Creatine Kinase NT-Pro-B Natriuret Pep Total Protein Albumin Zsaik-6-Apqscsruk Ritsd-0-Ceuymyjae Beta Globulins PEP Interpretation Cholesterol LDL Cholesterol Direct Vitamin B12 Urine WBC (Auto) Urine Creatinine Crossmatch 04/04/16 04/04/16 04/04/16 11:45 17:49 17:55 WBC RBC Hgb Hct MCV MCH MCHC RDW Plt Count Lymph % (Auto) [place] % (Auto) Lymph # [place] # Baso # Seg Neutrophils % Seg Neuts % (Manual) Lymphocytes % (Manual) Monocytes % (Manual) Seg Neutrophils # Seg Neutrophils # Man Lymphocytes # (Manual) Monocytes # (Manual) Basophils # (Manual) Percent Retic PT INR APTT Heparin Anti-Xa Level 1.19 H POC ABG pH POC ABG pCO2 POC ABG pO2 Sodium Potassium Chloride Carbon Dioxide BUN Creatinine Glucose POC Glucose 231 H 186 H Calcium Phosphorus Iron TIBC Lactate Dehydrogenase Total Creatine Kinase NT-Pro-B Natriuret Pep Total Protein Albumin Tybqt-1-Ovurtwruo Bjubq-7-Gfqmvrusa Beta Globulins PEP Interpretation Cholesterol LDL Cholesterol Direct Vitamin B12 Urine WBC (Auto) Urine Creatinine Crossmatch 04/05/16 04/05/16 04/05/16 00:35 05:32 05:42 WBC RBC Hgb Hct MCV MCH MCHC RDW Plt Count Lymph % (Auto) [place] % (Auto) Lymph # [place] # Baso # Seg Neutrophils % Seg Neuts % (Manual) Lymphocytes % (Manual) Monocytes % (Manual) Seg Neutrophils # Seg Neutrophils # Man Lymphocytes # (Manual) Monocytes # (Manual) Basophils # (Manual) Percent Retic PT INR APTT Heparin Anti-Xa Level POC ABG pH 7.491 H POC ABG pCO2 POC ABG pO2 Sodium Potassium Chloride Carbon Dioxide BUN Creatinine Glucose POC Glucose 192 H 242 H Calcium Phosphorus Iron TIBC Lactate Dehydrogenase Total Creatine Kinase NT-Pro-B Natriuret Pep Total Protein Albumin Thiss-9-Ueerbatko Gqsnc-6-Mchyiwgcz Beta Globulins PEP Interpretation Cholesterol LDL Cholesterol Direct Vitamin B12 Urine WBC (Auto) Urine Creatinine Crossmatch 04/05/16 04/05/16 04/05/16 06:20 06:20 12:19 WBC 13.9 H RBC Hgb 11.6 L Hct MCV 81 L MCH 26 L MCHC RDW Plt Count Lymph % (Auto) 9.6 L [place] % (Auto) 8.7 H Lymph # [place] # 1.2 H Baso # Seg Neutrophils % 80.9 H Seg Neuts % (Manual) Lymphocytes % (Manual) Monocytes % (Manual) Seg Neutrophils # 11.3 H Seg Neutrophils # Man Lymphocytes # (Manual) Monocytes # (Manual) Basophils # (Manual) Percent Retic PT INR APTT Heparin Anti-Xa Level POC ABG pH POC ABG pCO2 POC ABG pO2 Sodium 148 H Potassium Chloride Carbon Dioxide BUN 23 H Creatinine Glucose 242 H POC Glucose 187 H Calcium Phosphorus Iron TIBC Lactate Dehydrogenase Total Creatine Kinase NT-Pro-B Natriuret Pep Total Protein Albumin Obwhc-3-Jofgpktpf Hjfpk-0-Rrnnqkpqj Beta Globulins PEP Interpretation Cholesterol LDL Cholesterol Direct Vitamin B12 Urine WBC (Auto) Urine Creatinine Crossmatch 04/05/16 04/05/16 04/06/16 17:10 23:45 05:23 WBC 13.0 H RBC Hgb Hct MCV 82 L MCH 26 L MCHC 31 L RDW Plt Count Lymph % (Auto) 6.7 L [place] % (Auto) 8.3 H Lymph # 0.9 L [place] # 1.1 H Baso # Seg Neutrophils % 84.6 H Seg Neuts % (Manual) Lymphocytes % (Manual) Monocytes % (Manual) Seg Neutrophils # 11.0 H Seg Neutrophils # Man Lymphocytes # (Manual) Monocytes # (Manual) Basophils # (Manual) Percent Retic PT INR APTT Heparin Anti-Xa Level POC ABG pH POC ABG pCO2 POC ABG pO2 Sodium Potassium Chloride Carbon Dioxide BUN Creatinine Glucose POC Glucose 169 H 202 H Calcium Phosphorus Iron TIBC Lactate Dehydrogenase Total Creatine Kinase NT-Pro-B Natriuret Pep Total Protein Albumin Udygv-2-Debjegwev Snayz-0-Dzdxzbxky Beta Globulins PEP Interpretation Cholesterol LDL Cholesterol Direct Vitamin B12 Urine WBC (Auto) Urine Creatinine Crossmatch 04/06/16 04/06/16 04/06/16 05:23 05:23 06:11 WBC RBC Hgb Hct MCV MCH MCHC RDW Plt Count Lymph % (Auto) [place] % (Auto) Lymph # [place] # Baso # Seg Neutrophils % Seg Neuts % (Manual) Lymphocytes % (Manual) Monocytes % (Manual) Seg Neutrophils # Seg Neutrophils # Man Lymphocytes # (Manual) Monocytes # (Manual) Basophils # (Manual) Percent Retic PT INR APTT Heparin Anti-Xa Level 0.21 L POC ABG pH POC ABG pCO2 POC ABG pO2 Sodium 153 H Potassium Chloride 111.3 H Carbon Dioxide BUN 22 H Creatinine Glucose 62 L POC Glucose 56 L Calcium Phosphorus Iron TIBC Lactate Dehydrogenase Total Creatine Kinase NT-Pro-B Natriuret Pep Total Protein Albumin Tfavj-4-Yoihwyyrr Javof-0-Qypbhrfab Beta Globulins PEP Interpretation Cholesterol LDL Cholesterol Direct Vitamin B12 Urine WBC (Auto) Urine Creatinine Crossmatch 04/06/16 04/06/16 04/06/16 06:52 11:36 14:58 WBC RBC Hgb Hct MCV MCH MCHC RDW Plt Count Lymph % (Auto) [place] % (Auto) Lymph # [place] # Baso # Seg Neutrophils % Seg Neuts % (Manual) Lymphocytes % (Manual) Monocytes % (Manual) Seg Neutrophils # Seg Neutrophils # Man Lymphocytes # (Manual) Monocytes # (Manual) Basophils # (Manual) Percent Retic PT INR APTT Heparin Anti-Xa Level POC ABG pH POC ABG pCO2 POC ABG pO2 Sodium Potassium Chloride Carbon Dioxide BUN Creatinine Glucose POC Glucose 206 H 139 H 147 H Calcium Phosphorus Iron TIBC Lactate Dehydrogenase Total Creatine Kinase NT-Pro-B Natriuret Pep Total Protein Albumin Msije-8-Qiqwcoukj Rfnjr-9-Tfispdrpx Beta Globulins PEP Interpretation Cholesterol LDL Cholesterol Direct Vitamin B12 Urine WBC (Auto) Urine Creatinine Crossmatch 04/06/16 04/06/16 04/06/16 16:03 21:18 23:53 WBC RBC Hgb Hct MCV MCH MCHC RDW Plt Count Lymph % (Auto) [place] % (Auto) Lymph # [place] # Baso # Seg Neutrophils % Seg Neuts % (Manual) Lymphocytes % (Manual) Monocytes % (Manual) Seg Neutrophils # Seg Neutrophils # Man Lymphocytes # (Manual) Monocytes # (Manual) Basophils # (Manual) Percent Retic PT INR APTT Heparin Anti-Xa Level POC ABG pH POC ABG pCO2 POC ABG pO2 Sodium Potassium Chloride Carbon Dioxide BUN Creatinine Glucose POC Glucose 154 H 293 H 301 H Calcium Phosphorus Iron TIBC Lactate Dehydrogenase Total Creatine Kinase NT-Pro-B Natriuret Pep Total Protein Albumin Swhhb-8-Putkmrgvs Zrfxs-7-Wnzseuzrg Beta Globulins PEP Interpretation Cholesterol LDL Cholesterol Direct Vitamin B12 Urine WBC (Auto) Urine Creatinine Crossmatch 04/07/16 04/07/16 04/07/16 02:30 05:11 05:11 WBC 12.5 H RBC Hgb 11.5 L Hct MCV 82 L MCH 26 L MCHC 31 L RDW Plt Count Lymph % (Auto) [place] % (Auto) Lymph # [place] # Baso # Seg Neutrophils % Seg Neuts % (Manual) Lymphocytes % (Manual) Monocytes % (Manual) Seg Neutrophils # Seg Neutrophils # Man Lymphocytes # (Manual) Monocytes # (Manual) Basophils # (Manual) Percent Retic PT INR APTT Heparin Anti-Xa Level 0.11 L POC ABG pH POC ABG pCO2 POC ABG pO2 Sodium 150 H Potassium Chloride 109.5 H Carbon Dioxide BUN 28 H Creatinine Glucose 264 H POC Glucose Calcium Phosphorus Iron TIBC Lactate Dehydrogenase Total Creatine Kinase NT-Pro-B Natriuret Pep Total Protein Albumin Wdkpo-6-Qabyvilmd Wtspw-7-Adlhnjcsz Beta Globulins PEP Interpretation Cholesterol LDL Cholesterol Direct Vitamin B12 Urine WBC (Auto) Urine Creatinine Crossmatch 04/07/16 04/07/16 04/07/16 06:46 10:18 11:50 WBC RBC Hgb Hct MCV MCH MCHC RDW Plt Count Lymph % (Auto) [place] % (Auto) Lymph # [place] # Baso # Seg Neutrophils % Seg Neuts % (Manual) Lymphocytes % (Manual) Monocytes % (Manual) Seg Neutrophils # Seg Neutrophils # Man Lymphocytes # (Manual) Monocytes # (Manual) Basophils # (Manual) Percent Retic PT 15.1 H INR 1.20 H APTT Heparin Anti-Xa Level POC ABG pH POC ABG pCO2 POC ABG pO2 Sodium Potassium Chloride Carbon Dioxide BUN Creatinine Glucose POC Glucose 259 H 288 H Calcium Phosphorus Iron TIBC Lactate Dehydrogenase Total Creatine Kinase NT-Pro-B Natriuret Pep Total Protein Albumin Eregu-3-Gjuiaklxu Wyfkg-3-Ndspqnjdh Beta Globulins PEP Interpretation Cholesterol LDL Cholesterol Direct Vitamin B12 Urine WBC (Auto) Urine Creatinine Crossmatch 04/07/16 04/08/16 04/08/16 17:58 01:25 06:49 WBC RBC Hgb Hct MCV MCH MCHC RDW Plt Count Lymph % (Auto) [place] % (Auto) Lymph # [place] # Baso # Seg Neutrophils % Seg Neuts % (Manual) Lymphocytes % (Manual) Monocytes % (Manual) Seg Neutrophils # Seg Neutrophils # Man Lymphocytes # (Manual) Monocytes # (Manual) Basophils # (Manual) Percent Retic PT INR APTT Heparin Anti-Xa Level POC ABG pH POC ABG pCO2 POC ABG pO2 Sodium 156 H Potassium Chloride 114.7 H Carbon Dioxide BUN 33 H Creatinine Glucose 169 H POC Glucose 330 H 146 H Calcium Phosphorus Iron TIBC Lactate Dehydrogenase Total Creatine Kinase NT-Pro-B Natriuret Pep Total Protein Albumin Ryslj-1-Hdkngugut Xipok-3-Usqytgqvz Beta Globulins PEP Interpretation Cholesterol LDL Cholesterol Direct Vitamin B12 Urine WBC (Auto) Urine Creatinine Crossmatch 04/08/16 04/08/16 04/08/16 07:34 10:28 10:28 WBC RBC Hgb Hct MCV MCH MCHC RDW Plt Count Lymph % (Auto) [place] % (Auto) Lymph # [place] # Baso # Seg Neutrophils % Seg Neuts % (Manual) Lymphocytes % (Manual) Monocytes % (Manual) Seg Neutrophils # Seg Neutrophils # Man Lymphocytes # (Manual) Monocytes # (Manual) Basophils # (Manual) Percent Retic PT 15.5 H INR 1.24 H APTT Heparin Anti-Xa Level 0.24 L POC ABG pH POC ABG pCO2 POC ABG pO2 Sodium Potassium Chloride Carbon Dioxide BUN Creatinine Glucose POC Glucose 232 H Calcium Phosphorus Iron TIBC Lactate Dehydrogenase Total Creatine Kinase NT-Pro-B Natriuret Pep Total Protein Albumin Jyoxx-8-Xcrrodunz Iijob-0-Zgeahziwr Beta Globulins PEP Interpretation Cholesterol LDL Cholesterol Direct Vitamin B12 Urine WBC (Auto) Urine Creatinine Crossmatch 04/08/16 04/08/16 04/09/16 11:36 15:38 00:01 WBC RBC Hgb Hct MCV MCH MCHC RDW Plt Count Lymph % (Auto) [place] % (Auto) Lymph # [place] # Baso # Seg Neutrophils % Seg Neuts % (Manual) Lymphocytes % (Manual) Monocytes % (Manual) Seg Neutrophils # Seg Neutrophils # Man Lymphocytes # (Manual) Monocytes # (Manual) Basophils # (Manual) Percent Retic PT INR APTT Heparin Anti-Xa Level POC ABG pH POC ABG pCO2 POC ABG pO2 Sodium Potassium Chloride Carbon Dioxide BUN Creatinine Glucose POC Glucose 193 H 163 H 180 H Calcium Phosphorus Iron TIBC Lactate Dehydrogenase Total Creatine Kinase NT-Pro-B Natriuret Pep Total Protein Albumin Cfkfg-1-Qfhcugivq Ueosg-4-Kuavtfrgt Beta Globulins PEP Interpretation Cholesterol LDL Cholesterol Direct Vitamin B12 Urine WBC (Auto) Urine Creatinine Crossmatch 04/09/16 04/09/16 04/09/16 06:17 06:42 06:42 WBC RBC Hgb Hct MCV MCH MCHC RDW Plt Count Lymph % (Auto) [place] % (Auto) Lymph # [place] # Baso # Seg Neutrophils % Seg Neuts % (Manual) Lymphocytes % (Manual) Monocytes % (Manual) Seg Neutrophils # Seg Neutrophils # Man Lymphocytes # (Manual) Monocytes # (Manual) Basophils # (Manual) Percent Retic PT 17.4 H INR 1.43 H APTT Heparin Anti-Xa Level POC ABG pH POC ABG pCO2 POC ABG pO2 Sodium 153 H Potassium Chloride 113.2 H Carbon Dioxide BUN 29 H Creatinine Glucose 301 H POC Glucose 249 H Calcium 8.3 L Phosphorus Iron TIBC Lactate Dehydrogenase Total Creatine Kinase NT-Pro-B Natriuret Pep Total Protein Albumin Ufypu-1-Toxdouhjq Lixlk-8-Nvygqdbns Beta Globulins PEP Interpretation Cholesterol LDL Cholesterol Direct Vitamin B12 Urine WBC (Auto) Urine Creatinine Crossmatch 04/09/16 04/09/16 04/09/16 07:37 11:26 15:45 WBC RBC Hgb Hct MCV MCH MCHC RDW Plt Count Lymph % (Auto) [place] % (Auto) Lymph # [place] # Baso # Seg Neutrophils % Seg Neuts % (Manual) Lymphocytes % (Manual) Monocytes % (Manual) Seg Neutrophils # Seg Neutrophils # Man Lymphocytes # (Manual) Monocytes # (Manual) Basophils # (Manual) Percent Retic PT INR APTT Heparin Anti-Xa Level POC ABG pH POC ABG pCO2 POC ABG pO2 Sodium Potassium Chloride Carbon Dioxide BUN Creatinine Glucose POC Glucose 283 H 306 H 354 H Calcium Phosphorus Iron TIBC Lactate Dehydrogenase Total Creatine Kinase NT-Pro-B Natriuret Pep Total Protein Albumin Upmds-2-Lcjvpbeph Uxmqe-7-Rhqialrte Beta Globulins PEP Interpretation Cholesterol LDL Cholesterol Direct Vitamin B12 Urine WBC (Auto) Urine Creatinine Crossmatch 04/10/16 04/10/16 04/10/16 00:53 07:15 07:34 WBC RBC Hgb 11.3 L Hct MCV MCH MCHC RDW Plt Count Lymph % (Auto) [place] % (Auto) Lymph # [place] # Baso # Seg Neutrophils % Seg Neuts % (Manual) Lymphocytes % (Manual) Monocytes % (Manual) Seg Neutrophils # Seg Neutrophils # Man Lymphocytes # (Manual) Monocytes # (Manual) Basophils # (Manual) Percent Retic PT INR APTT Heparin Anti-Xa Level POC ABG pH POC ABG pCO2 POC ABG pO2 Sodium Potassium Chloride Carbon Dioxide BUN Creatinine Glucose POC Glucose 323 H 311 H Calcium Phosphorus Iron TIBC Lactate Dehydrogenase Total Creatine Kinase NT-Pro-B Natriuret Pep Total Protein Albumin Iwavv-5-Ndriympju Bmyek-9-Fcrhuiaai Beta Globulins PEP Interpretation Cholesterol LDL Cholesterol Direct Vitamin B12 Urine WBC (Auto) Urine Creatinine Crossmatch 04/10/16 04/10/16 04/10/16 07:34 07:34 11:25 WBC RBC Hgb Hct MCV MCH MCHC RDW Plt Count Lymph % (Auto) [place] % (Auto) Lymph # [place] # Baso # Seg Neutrophils % Seg Neuts % (Manual) Lymphocytes % (Manual) Monocytes % (Manual) Seg Neutrophils # Seg Neutrophils # Man Lymphocytes # (Manual) Monocytes # (Manual) Basophils # (Manual) Percent Retic PT 17.3 H INR 1.42 H APTT Heparin Anti-Xa Level POC ABG pH POC ABG pCO2 POC ABG pO2 Sodium 158 H Potassium Chloride 118.6 H Carbon Dioxide BUN 30 H Creatinine Glucose 330 H POC Glucose 335 H Calcium 8.3 L Phosphorus Iron TIBC Lactate Dehydrogenase Total Creatine Kinase NT-Pro-B Natriuret Pep Total Protein Albumin Rlycn-2-Jkzscupnb Byndn-9-Qwxuakqio Beta Globulins PEP Interpretation Cholesterol LDL Cholesterol Direct Vitamin B12 Urine WBC (Auto) Urine Creatinine Crossmatch 04/10/16 04/11/16 04/11/16 16:21 00:29 07:47 WBC RBC Hgb Hct MCV MCH MCHC RDW Plt Count Lymph % (Auto) [place] % (Auto) Lymph # [place] # Baso # Seg Neutrophils % Seg Neuts % (Manual) Lymphocytes % (Manual) Monocytes % (Manual) Seg Neutrophils # Seg Neutrophils # Man Lymphocytes # (Manual) Monocytes # (Manual) Basophils # (Manual) Percent Retic PT 18.4 H INR 1.53 H APTT Heparin Anti-Xa Level POC ABG pH POC ABG pCO2 POC ABG pO2 Sodium Potassium Chloride Carbon Dioxide BUN Creatinine Glucose POC Glucose 230 H 162 H Calcium Phosphorus Iron TIBC Lactate Dehydrogenase Total Creatine Kinase NT-Pro-B Natriuret Pep Total Protein Albumin Qvqzn-2-Ewkqsbsml Hsxpt-5-Eschyxtkf Beta Globulins PEP Interpretation Cholesterol LDL Cholesterol Direct Vitamin B12 Urine WBC (Auto) Urine Creatinine Crossmatch 04/11/16 04/11/16 04/12/16 07:47 11:22 04:54 WBC RBC Hgb 11.0 L Hct 35.0 L MCV MCH MCHC RDW Plt Count Lymph % (Auto) [place] % (Auto) Lymph # [place] # Baso # Seg Neutrophils % Seg Neuts % (Manual) Lymphocytes % (Manual) Monocytes % (Manual) Seg Neutrophils # Seg Neutrophils # Man Lymphocytes # (Manual) Monocytes # (Manual) Basophils # (Manual) Percent Retic PT INR APTT Heparin Anti-Xa Level POC ABG pH POC ABG pCO2 POC ABG pO2 Sodium 155 H Potassium Chloride 114.5 H Carbon Dioxide BUN 23 H Creatinine Glucose 157 H POC Glucose 229 H Calcium Phosphorus Iron TIBC Lactate Dehydrogenase Total Creatine Kinase NT-Pro-B Natriuret Pep Total Protein Albumin Uxfwi-4-Lsnfzipey Zhopw-6-Hdttmqvzv Beta Globulins PEP Interpretation Cholesterol LDL Cholesterol Direct Vitamin B12 Urine WBC (Auto) Urine Creatinine Crossmatch 04/12/16 04/12/16 04/12/16 04:54 04:54 05:57 WBC RBC Hgb Hct MCV MCH MCHC RDW Plt Count Lymph % (Auto) [place] % (Auto) Lymph # [place] # Baso # Seg Neutrophils % Seg Neuts % (Manual) Lymphocytes % (Manual) Monocytes % (Manual) Seg Neutrophils # Seg Neutrophils # Man Lymphocytes # (Manual) Monocytes # (Manual) Basophils # (Manual) Percent Retic PT 22.5 H INR 1.98 H APTT Heparin Anti-Xa Level 0.19 L POC ABG pH POC ABG pCO2 POC ABG pO2 Sodium 156 H Potassium Chloride 115.4 H Carbon Dioxide BUN 23 H Creatinine Glucose 143 H POC Glucose 194 H Calcium Phosphorus Iron TIBC Lactate Dehydrogenase Total Creatine Kinase NT-Pro-B Natriuret Pep Total Protein Albumin Yyqpm-2-Pxllcloak Ullef-8-Rigozqkio Beta Globulins PEP Interpretation Cholesterol LDL Cholesterol Direct Vitamin B12 Urine WBC (Auto) Urine Creatinine Crossmatch 04/12/16 04/12/16 04/12/16 12:34 19:01 23:30 WBC RBC Hgb Hct MCV MCH MCHC RDW Plt Count Lymph % (Auto) [place] % (Auto) Lymph # [place] # Baso # Seg Neutrophils % Seg Neuts % (Manual) Lymphocytes % (Manual) Monocytes % (Manual) Seg Neutrophils # Seg Neutrophils # Man Lymphocytes # (Manual) Monocytes # (Manual) Basophils # (Manual) Percent Retic PT INR APTT Heparin Anti-Xa Level POC ABG pH POC ABG pCO2 POC ABG pO2 Sodium Potassium Chloride Carbon Dioxide BUN Creatinine Glucose POC Glucose 291 H 235 H 154 H Calcium Phosphorus Iron TIBC Lactate Dehydrogenase Total Creatine Kinase NT-Pro-B Natriuret Pep Total Protein Albumin Fkgdc-1-Vmiccujsk Obkyj-4-Rypcalgus Beta Globulins PEP Interpretation Cholesterol LDL Cholesterol Direct Vitamin B12 Urine WBC (Auto) Urine Creatinine Crossmatch 04/13/16 04/13/16 04/13/16 05:16 05:16 05:28 WBC RBC Hgb Hct MCV MCH MCHC RDW Plt Count Lymph % (Auto) [place] % (Auto) Lymph # [place] # Baso # Seg Neutrophils % Seg Neuts % (Manual) Lymphocytes % (Manual) Monocytes % (Manual) Seg Neutrophils # Seg Neutrophils # Man Lymphocytes # (Manual) Monocytes # (Manual) Basophils # (Manual) Percent Retic PT 27.0 H INR 2.49 H APTT Heparin Anti-Xa Level 0.20 L POC ABG pH POC ABG pCO2 POC ABG pO2 Sodium 150 H Potassium Chloride 110.5 H Carbon Dioxide BUN 21 H Creatinine Glucose 159 H POC Glucose 177 H Calcium Phosphorus Iron TIBC Lactate Dehydrogenase Total Creatine Kinase NT-Pro-B Natriuret Pep Total Protein Albumin Rxskh-3-Jbcpeknci Jsuzc-1-Aryuesbxq Beta Globulins PEP Interpretation Cholesterol LDL Cholesterol Direct Vitamin B12 Urine WBC (Auto) Urine Creatinine Crossmatch 04/13/16 04/13/16 04/14/16 11:30 17:54 00:44 WBC RBC Hgb Hct MCV MCH MCHC RDW Plt Count Lymph % (Auto) [place] % (Auto) Lymph # [place] # Baso # Seg Neutrophils % Seg Neuts % (Manual) Lymphocytes % (Manual) Monocytes % (Manual) Seg Neutrophils # Seg Neutrophils # Man Lymphocytes # (Manual) Monocytes # (Manual) Basophils # (Manual) Percent Retic PT INR APTT Heparin Anti-Xa Level POC ABG pH POC ABG pCO2 POC ABG pO2 Sodium Potassium Chloride Carbon Dioxide BUN Creatinine Glucose POC Glucose 181 H 251 H 237 H Calcium Phosphorus Iron TIBC Lactate Dehydrogenase Total Creatine Kinase NT-Pro-B Natriuret Pep Total Protein Albumin Cizxa-3-Zgcxrmqwc Lbpdl-6-Pzvdslwbi Beta Globulins PEP Interpretation Cholesterol LDL Cholesterol Direct Vitamin B12 Urine WBC (Auto) Urine Creatinine Crossmatch 04/14/16 04/14/16 04/14/16 05:00 05:42 05:42 WBC RBC Hgb Hct MCV MCH MCHC RDW Plt Count Lymph % (Auto) [place] % (Auto) Lymph # [place] # Baso # Seg Neutrophils % Seg Neuts % (Manual) Lymphocytes % (Manual) Monocytes % (Manual) Seg Neutrophils # Seg Neutrophils # Man Lymphocytes # (Manual) Monocytes # (Manual) Basophils # (Manual) Percent Retic PT 30.3 H INR 2.88 H APTT Heparin Anti-Xa Level 0.27 L POC ABG pH POC ABG pCO2 POC ABG pO2 Sodium Potassium 3.5 L Chloride Carbon Dioxide BUN Creatinine Glucose 160 H POC Glucose Calcium 8.2 L Phosphorus Iron TIBC Lactate Dehydrogenase Total Creatine Kinase NT-Pro-B Natriuret Pep Total Protein Albumin Axtqz-2-Qhmrwpswv Dluvb-7-Rzboeidyy Beta Globulins PEP Interpretation Cholesterol LDL Cholesterol Direct Vitamin B12 Urine WBC (Auto) Urine Creatinine Crossmatch 04/14/16 04/14/16 04/14/16 06:02 06:16 09:18 WBC 12.3 H RBC Hgb 11.4 L Hct MCV 82 L MCH 26 L MCHC RDW Plt Count Lymph % (Auto) [place] % (Auto) Lymph # [place] # Baso # Seg Neutrophils % Seg Neuts % (Manual) Lymphocytes % (Manual) Monocytes % (Manual) Seg Neutrophils # Seg Neutrophils # Man Lymphocytes # (Manual) Monocytes # (Manual) Basophils # (Manual) Percent Retic PT INR APTT Heparin Anti-Xa Level POC ABG pH POC ABG pCO2 POC ABG pO2 Sodium Potassium Chloride Carbon Dioxide BUN Creatinine Glucose POC Glucose 156 H 164 H Calcium Phosphorus Iron TIBC Lactate Dehydrogenase Total Creatine Kinase NT-Pro-B Natriuret Pep Total Protein Albumin Pznkj-2-Fzjizebtg Rvpii-8-Isnfgjxxo Beta Globulins PEP Interpretation Cholesterol LDL Cholesterol Direct Vitamin B12 Urine WBC (Auto) Urine Creatinine Crossmatch 04/14/16 04/15/16 04/15/16 13:58 01:07 06:04 WBC RBC Hgb Hct MCV MCH MCHC RDW Plt Count Lymph % (Auto) [place] % (Auto) Lymph # [place] # Baso # Seg Neutrophils % Seg Neuts % (Manual) Lymphocytes % (Manual) Monocytes % (Manual) Seg Neutrophils # Seg Neutrophils # Man Lymphocytes # (Manual) Monocytes # (Manual) Basophils # (Manual) Percent Retic PT 24.9 H INR 2.25 H APTT Heparin Anti-Xa Level POC ABG pH POC ABG pCO2 POC ABG pO2 Sodium Potassium Chloride Carbon Dioxide BUN Creatinine Glucose POC Glucose 109 H 154 H Calcium Phosphorus Iron TIBC Lactate Dehydrogenase Total Creatine Kinase NT-Pro-B Natriuret Pep Total Protein Albumin Lrpfo-2-Witsyhdjy Sazun-6-Pgkdplesi Beta Globulins PEP Interpretation Cholesterol LDL Cholesterol Direct Vitamin B12 Urine WBC (Auto) Urine Creatinine Crossmatch 04/15/16 04/15/16 04/16/16 06:08 12:41 00:38 WBC RBC Hgb Hct MCV MCH MCHC RDW Plt Count Lymph % (Auto) [place] % (Auto) Lymph # [place] # Baso # Seg Neutrophils % Seg Neuts % (Manual) Lymphocytes % (Manual) Monocytes % (Manual) Seg Neutrophils # Seg Neutrophils # Man Lymphocytes # (Manual) Monocytes # (Manual) Basophils # (Manual) Percent Retic PT INR APTT Heparin Anti-Xa Level POC ABG pH POC ABG pCO2 POC ABG pO2 Sodium Potassium Chloride Carbon Dioxide BUN Creatinine Glucose POC Glucose 165 H 223 H 216 H Calcium Phosphorus Iron TIBC Lactate Dehydrogenase Total Creatine Kinase NT-Pro-B Natriuret Pep Total Protein Albumin Xtkwz-1-Ftozvjlch Yflgr-7-Gzaykgene Beta Globulins PEP Interpretation Cholesterol LDL Cholesterol Direct Vitamin B12 Urine WBC (Auto) Urine Creatinine Crossmatch 04/16/16 04/16/16 04/16/16 05:45 07:09 14:00 WBC RBC Hgb Hct MCV MCH MCHC RDW Plt Count Lymph % (Auto) [place] % (Auto) Lymph # [place] # Baso # Seg Neutrophils % Seg Neuts % (Manual) Lymphocytes % (Manual) Monocytes % (Manual) Seg Neutrophils # Seg Neutrophils # Man Lymphocytes # (Manual) Monocytes # (Manual) Basophils # (Manual) Percent Retic PT 19.4 H INR 1.64 H APTT Heparin Anti-Xa Level 0.10 L POC ABG pH POC ABG pCO2 POC ABG pO2 Sodium Potassium Chloride Carbon Dioxide BUN Creatinine Glucose POC Glucose 207 H 69 L Calcium Phosphorus Iron TIBC Lactate Dehydrogenase Total Creatine Kinase NT-Pro-B Natriuret Pep Total Protein Albumin Aifus-2-Jhmzxwgnu Ooxkh-8-Ymrqyvcxz Beta Globulins PEP Interpretation Cholesterol LDL Cholesterol Direct Vitamin B12 Urine WBC (Auto) Urine Creatinine Crossmatch 04/16/16 04/16/16 04/16/16 17:40 17:52 19:38 WBC RBC Hgb Hct MCV MCH MCHC RDW Plt Count Lymph % (Auto) [place] % (Auto) Lymph # [place] # Baso # Seg Neutrophils % Seg Neuts % (Manual) Lymphocytes % (Manual) Monocytes % (Manual) Seg Neutrophils # Seg Neutrophils # Man Lymphocytes # (Manual) Monocytes # (Manual) Basophils # (Manual) Percent Retic PT INR APTT Heparin Anti-Xa Level 0.26 L POC ABG pH 7.543 H 7.488 H POC ABG pCO2 26.3 L 30.3 L POC ABG pO2 55 L 203 H Sodium Potassium Chloride Carbon Dioxide BUN Creatinine Glucose POC Glucose Calcium Phosphorus Iron TIBC Lactate Dehydrogenase Total Creatine Kinase NT-Pro-B Natriuret Pep Total Protein Albumin Fnxlp-3-Oxyfnenbi Obieb-9-Abbxibozl Beta Globulins PEP Interpretation Cholesterol LDL Cholesterol Direct Vitamin B12 Urine WBC (Auto) Urine Creatinine Crossmatch 04/17/16 04/17/16 04/17/16 00:04 05:10 05:36 WBC RBC Hgb Hct MCV MCH MCHC RDW Plt Count Lymph % (Auto) [place] % (Auto) Lymph # [place] # Baso # Seg Neutrophils % Seg Neuts % (Manual) Lymphocytes % (Manual) Monocytes % (Manual) Seg Neutrophils # Seg Neutrophils # Man Lymphocytes # (Manual) Monocytes # (Manual) Basophils # (Manual) Percent Retic PT INR APTT Heparin Anti-Xa Level POC ABG pH POC ABG pCO2 32.7 L POC ABG pO2 68 L Sodium Potassium Chloride Carbon Dioxide BUN Creatinine Glucose POC Glucose 113 H 161 H Calcium Phosphorus Iron TIBC Lactate Dehydrogenase Total Creatine Kinase NT-Pro-B Natriuret Pep Total Protein Albumin Uejfy-7-Kntiyawod Krmrg-9-Pjeeifidj Beta Globulins PEP Interpretation Cholesterol LDL Cholesterol Direct Vitamin B12 Urine WBC (Auto) Urine Creatinine Crossmatch 04/17/16 04/17/16 04/17/16 05:41 08:37 11:46 WBC RBC Hgb Hct MCV MCH MCHC RDW Plt Count Lymph % (Auto) [place] % (Auto) Lymph # [place] # Baso # Seg Neutrophils % Seg Neuts % (Manual) Lymphocytes % (Manual) Monocytes % (Manual) Seg Neutrophils # Seg Neutrophils # Man Lymphocytes # (Manual) Monocytes # (Manual) Basophils # (Manual) Percent Retic PT 17.4 H INR 1.43 H APTT Heparin Anti-Xa Level POC ABG pH POC ABG pCO2 POC ABG pO2 Sodium Potassium Chloride Carbon Dioxide BUN Creatinine Glucose POC Glucose 154 H 138 H Calcium Phosphorus Iron TIBC Lactate Dehydrogenase Total Creatine Kinase NT-Pro-B Natriuret Pep Total Protein Albumin Vekyn-2-Usexpcrdi Rlrtz-8-Ktqsomllr Beta Globulins PEP Interpretation Cholesterol LDL Cholesterol Direct Vitamin B12 Urine WBC (Auto) Urine Creatinine Crossmatch 04/17/16 04/17/16 04/17/16 12:17 12:17 21:20 WBC 16.5 H RBC 3.31 L Hgb 8.8 L Hct 26.9 L MCV 81 L MCH 27 L MCHC RDW 15.5 H Plt Count Lymph % (Auto) [place] % (Auto) Lymph # [place] # Baso # Seg Neutrophils % Seg Neuts % (Manual) Lymphocytes % (Manual) 3.0 L Monocytes % (Manual) Seg Neutrophils # Seg Neutrophils # Man 10.1 H Lymphocytes # (Manual) 0.5 L Monocytes # (Manual) Basophils # (Manual) Percent Retic PT INR APTT Heparin Anti-Xa Level 0.14 L POC ABG pH POC ABG pCO2 POC ABG pO2 Sodium Potassium Chloride Carbon Dioxide 21 L BUN 38 H Creatinine 1.8 H D Glucose 131 H POC Glucose Calcium 7.6 L Phosphorus Iron TIBC Lactate Dehydrogenase Total Creatine Kinase NT-Pro-B Natriuret Pep Total Protein Albumin Uhbcc-4-Zqhbjzvqg Fezqv-6-Ozdnamkdu Beta Globulins PEP Interpretation Cholesterol LDL Cholesterol Direct Vitamin B12 Urine WBC (Auto) Urine Creatinine Crossmatch 04/17/16 04/17/16 04/18/16 23:38 23:41 00:21 WBC RBC Hgb Hct MCV MCH MCHC RDW Plt Count Lymph % (Auto) [place] % (Auto) Lymph # [place] # Baso # Seg Neutrophils % Seg Neuts % (Manual) Lymphocytes % (Manual) Monocytes % (Manual) Seg Neutrophils # Seg Neutrophils # Man Lymphocytes # (Manual) Monocytes # (Manual) Basophils # (Manual) Percent Retic PT INR APTT Heparin Anti-Xa Level POC ABG pH POC ABG pCO2 POC ABG pO2 Sodium Potassium Chloride Carbon Dioxide BUN Creatinine Glucose POC Glucose < 40 L < 40 L 223 H Calcium Phosphorus Iron TIBC Lactate Dehydrogenase Total Creatine Kinase NT-Pro-B Natriuret Pep Total Protein Albumin Eyewr-4-Lwptrqakn Azfxy-7-Rdmfezuhs Beta Globulins PEP Interpretation Cholesterol LDL Cholesterol Direct Vitamin B12 Urine WBC (Auto) Urine Creatinine Crossmatch 04/18/16 04/18/16 04/18/16 05:01 05:20 05:20 WBC 17.6 H RBC 3.44 L Hgb 9.1 L Hct 27.8 L MCV 81 L MCH 26 L MCHC RDW 15.5 H Plt Count Lymph % (Auto) 2.7 L [place] % (Auto) 8.3 H Lymph # 0.5 L [place] # 1.5 H Baso # Seg Neutrophils % 88.4 H Seg Neuts % (Manual) Lymphocytes % (Manual) Monocytes % (Manual) Seg Neutrophils # 15.6 H Seg Neutrophils # Man Lymphocytes # (Manual) Monocytes # (Manual) Basophils # (Manual) Percent Retic PT 17.4 H INR 1.43 H APTT Heparin Anti-Xa Level POC ABG pH 7.528 H POC ABG pCO2 27.9 L POC ABG pO2 Sodium Potassium Chloride Carbon Dioxide BUN Creatinine Glucose POC Glucose Calcium Phosphorus Iron TIBC Lactate Dehydrogenase Total Creatine Kinase NT-Pro-B Natriuret Pep Total Protein Albumin Ltetf-0-Wjvstmdoz Inxkd-3-Ngubeaiew Beta Globulins PEP Interpretation Cholesterol LDL Cholesterol Direct Vitamin B12 Urine WBC (Auto) Urine Creatinine Crossmatch 04/18/16 04/18/16 04/18/16 05:20 05:31 06:50 WBC RBC Hgb Hct MCV MCH MCHC RDW Plt Count Lymph % (Auto) [place] % (Auto) Lymph # [place] # Baso # Seg Neutrophils % Seg Neuts % (Manual) Lymphocytes % (Manual) Monocytes % (Manual) Seg Neutrophils # Seg Neutrophils # Man Lymphocytes # (Manual) Monocytes # (Manual) Basophils # (Manual) Percent Retic PT INR APTT Heparin Anti-Xa Level POC ABG pH POC ABG pCO2 POC ABG pO2 Sodium Potassium 3.4 L Chloride Carbon Dioxide 21 L BUN 22 H Creatinine Glucose POC Glucose 61 L 124 H Calcium 8.0 L Phosphorus Iron TIBC Lactate Dehydrogenase Total Creatine Kinase NT-Pro-B Natriuret Pep Total Protein Albumin Qbfpe-9-Mdyegbmye Nrykl-3-Nuwecqomu Beta Globulins PEP Interpretation Cholesterol LDL Cholesterol Direct Vitamin B12 Urine WBC (Auto) Urine Creatinine Crossmatch 04/18/16 04/18/16 04/19/16 17:42 22:40 00:31 WBC RBC Hgb Hct MCV MCH MCHC RDW Plt Count Lymph % (Auto) [place] % (Auto) Lymph # [place] # Baso # Seg Neutrophils % Seg Neuts % (Manual) Lymphocytes % (Manual) Monocytes % (Manual) Seg Neutrophils # Seg Neutrophils # Man Lymphocytes # (Manual) Monocytes # (Manual) Basophils # (Manual) Percent Retic PT INR APTT Heparin Anti-Xa Level < 0.10 L POC ABG pH POC ABG pCO2 POC ABG pO2 Sodium Potassium Chloride Carbon Dioxide BUN Creatinine Glucose POC Glucose 159 H 134 H Calcium Phosphorus Iron TIBC Lactate Dehydrogenase Total Creatine Kinase NT-Pro-B Natriuret Pep Total Protein Albumin Nsxir-0-Dzmrglbhg Qxqys-9-Klwctqacv Beta Globulins PEP Interpretation Cholesterol LDL Cholesterol Direct Vitamin B12 Urine WBC (Auto) Urine Creatinine Crossmatch 04/19/16 04/19/16 04/19/16 04:18 04:18 04:25 WBC 19.0 H RBC 3.58 L Hgb 9.3 L Hct 28.8 L MCV 80 L MCH 26 L MCHC RDW 15.5 H Plt Count Lymph % (Auto) 2.8 L [place] % (Auto) 7.4 H Lymph # 0.5 L [place] # 1.4 H Baso # Seg Neutrophils % 89.4 H Seg Neuts % (Manual) Lymphocytes % (Manual) Monocytes % (Manual) Seg Neutrophils # 17.0 H Seg Neutrophils # Man Lymphocytes # (Manual) Monocytes # (Manual) Basophils # (Manual) Percent Retic PT INR APTT Heparin Anti-Xa Level POC ABG pH 7.527 H POC ABG pCO2 27.1 L POC ABG pO2 Sodium Potassium Chloride Carbon Dioxide BUN 22 H Creatinine Glucose 215 H POC Glucose Calcium 8.0 L Phosphorus Iron TIBC Lactate Dehydrogenase Total Creatine Kinase NT-Pro-B Natriuret Pep Total Protein Albumin Hqphx-2-Ybtpusoya Xlxgv-4-Obcngbzuk Beta Globulins PEP Interpretation Cholesterol LDL Cholesterol Direct Vitamin B12 Urine WBC (Auto) Urine Creatinine Crossmatch 04/19/16 04/19/16 04/19/16 05:45 08:10 14:08 WBC RBC Hgb Hct MCV MCH MCHC RDW Plt Count Lymph % (Auto) [place] % (Auto) Lymph # [place] # Baso # Seg Neutrophils % Seg Neuts % (Manual) Lymphocytes % (Manual) Monocytes % (Manual) Seg Neutrophils # Seg Neutrophils # Man Lymphocytes # (Manual) Monocytes # (Manual) Basophils # (Manual) Percent Retic PT 22.1 H INR 1.93 H APTT Heparin Anti-Xa Level 0.17 L POC ABG pH POC ABG pCO2 POC ABG pO2 Sodium Potassium Chloride Carbon Dioxide BUN Creatinine Glucose POC Glucose 196 H 318 H Calcium Phosphorus Iron TIBC Lactate Dehydrogenase Total Creatine Kinase NT-Pro-B Natriuret Pep Total Protein Albumin Qwnel-8-Bykqafkfz Wmfcn-2-Dmiclknbt Beta Globulins PEP Interpretation Cholesterol LDL Cholesterol Direct Vitamin B12 Urine WBC (Auto) Urine Creatinine Crossmatch 04/19/16 04/20/16 04/20/16 17:27 03:55 03:55 WBC 18.5 H RBC 3.19 L Hgb 8.4 L Hct 25.7 L MCV 80 L MCH 26 L MCHC RDW 15.9 H Plt Count Lymph % (Auto) 4.3 L [place] % (Auto) 10.1 H Lymph # 0.8 L [place] # 1.9 H Baso # Seg Neutrophils % 85.2 H Seg Neuts % (Manual) Lymphocytes % (Manual) Monocytes % (Manual) Seg Neutrophils # 15.8 H Seg Neutrophils # Man Lymphocytes # (Manual) Monocytes # (Manual) Basophils # (Manual) Percent Retic PT 22.0 H INR 1.92 H APTT Heparin Anti-Xa Level 0.14 L POC ABG pH POC ABG pCO2 POC ABG pO2 Sodium Potassium Chloride Carbon Dioxide BUN Creatinine Glucose POC Glucose 230 H Calcium Phosphorus Iron TIBC Lactate Dehydrogenase Total Creatine Kinase NT-Pro-B Natriuret Pep Total Protein Albumin Xmtfj-7-Nqdlmvrdq [place]ylau-9-Hubbvjlcj Beta Globulins PEP Interpretation Cholesterol LDL Cholesterol Direct Vitamin B12 Urine WBC (Auto) Urine Creatinine Crossmatch 04/20/16 04/20/16 04/20/16 03:55 04:16 05:52 WBC RBC Hgb Hct MCV MCH MCHC RDW Plt Count Lymph % (Auto) [place] % (Auto) Lymph # [place] # Baso # Seg Neutrophils % Seg Neuts % (Manual) Lymphocytes % (Manual) Monocytes % (Manual) Seg Neutrophils # Seg Neutrophils # Man Lymphocytes # (Manual) Monocytes # (Manual) Basophils # (Manual) Percent Retic PT INR APTT Heparin Anti-Xa Level POC ABG pH 7.474 H POC ABG pCO2 26.5 L POC ABG pO2 Sodium Potassium Chloride Carbon Dioxide 18 L BUN 38 H Creatinine 2.7 H D Glucose 159 H POC Glucose 214 H Calcium 8.0 L Phosphorus Iron TIBC Lactate Dehydrogenase Total Creatine Kinase NT-Pro-B Natriuret Pep Total Protein Albumin Oqfnh-4-Uifvtbwgb Tyngy-2-Vxpjyfvxp Beta Globulins PEP Interpretation Cholesterol LDL Cholesterol Direct Vitamin B12 Urine WBC (Auto) Urine Creatinine Crossmatch 04/20/16 04/20/16 04/20/16 10:32 11:27 11:50 WBC RBC Hgb Hct MCV MCH MCHC RDW Plt Count Lymph % (Auto) [place] % (Auto) Lymph # [place] # Baso # Seg Neutrophils % Seg Neuts % (Manual) Lymphocytes % (Manual) Monocytes % (Manual) Seg Neutrophils # Seg Neutrophils # Man Lymphocytes # (Manual) Monocytes # (Manual) Basophils # (Manual) Percent Retic PT INR APTT Heparin Anti-Xa Level POC ABG pH POC ABG pCO2 POC ABG pO2 Sodium Potassium Chloride Carbon Dioxide 20 L BUN 45 H Creatinine 3.0 H Glucose 215 H POC Glucose 248 H Calcium 8.0 L Phosphorus Iron TIBC Lactate Dehydrogenase Total Creatine Kinase NT-Pro-B Natriuret Pep Total Protein Albumin Ovbqp-4-Llxdapmjf Qcxvg-7-Knryhyjka Beta Globulins PEP Interpretation Cholesterol LDL Cholesterol Direct Vitamin B12 Urine WBC (Auto) Urine Creatinine 85.5 H Crossmatch 04/20/16 04/21/16 04/21/16 16:59 00:13 04:29 WBC RBC Hgb Hct MCV MCH MCHC RDW Plt Count Lymph % (Auto) [place] % (Auto) Lymph # [place] # Baso # Seg Neutrophils % Seg Neuts % (Manual) Lymphocytes % (Manual) Monocytes % (Manual) Seg Neutrophils # Seg Neutrophils # Man Lymphocytes # (Manual) Monocytes # (Manual) Basophils # (Manual) Percent Retic PT 18.1 H INR 1.50 H APTT Heparin Anti-Xa Level 0.10 L POC ABG pH POC ABG pCO2 POC ABG pO2 Sodium Potassium Chloride Carbon Dioxide BUN Creatinine Glucose POC Glucose 312 H 287 H Calcium Phosphorus Iron TIBC Lactate Dehydrogenase Total Creatine Kinase NT-Pro-B Natriuret Pep Total Protein Albumin Dlmmp-1-Jbrkjuueq Gjhew-9-Xriscjtrm Beta Globulins PEP Interpretation Cholesterol LDL Cholesterol Direct Vitamin B12 Urine WBC (Auto) Urine Creatinine Crossmatch 04/21/16 04/21/16 04/21/16 04:29 04:29 04:55 WBC 15.4 H RBC 3.24 L Hgb 8.4 L Hct 25.6 L MCV 79 L MCH 26 L MCHC RDW 16.1 H Plt Count Lymph % (Auto) 6.8 L [place] % (Auto) 12.9 H Lymph # 1.0 L [place] # 2.0 H Baso # Seg Neutrophils % 79.8 H Seg Neuts % (Manual) Lymphocytes % (Manual) Monocytes % (Manual) Seg Neutrophils # 12.3 H Seg Neutrophils # Man Lymphocytes # (Manual) Monocytes # (Manual) Basophils # (Manual) Percent Retic PT INR APTT Heparin Anti-Xa Level POC ABG pH 7.512 H POC ABG pCO2 25.4 L POC ABG pO2 Sodium 135 L Potassium Chloride Carbon Dioxide 18 L BUN 57 H Creatinine 3.9 H Glucose 202 H POC Glucose Calcium 8.0 L Phosphorus Iron TIBC Lactate Dehydrogenase Total Creatine Kinase NT-Pro-B Natriuret Pep Total Protein Albumin Alegr-9-Cxjvbghzr Gfofl-1-Jafjskjql Beta Globulins PEP Interpretation Cholesterol LDL Cholesterol Direct Vitamin B12 Urine WBC (Auto) Urine Creatinine Crossmatch 04/21/16 04/21/16 04/21/16 05:20 12:08 12:16 WBC RBC Hgb Hct MCV MCH MCHC RDW Plt Count Lymph % (Auto) [place] % (Auto) Lymph # [place] # Baso # Seg Neutrophils % Seg Neuts % (Manual) Lymphocytes % (Manual) Monocytes % (Manual) Seg Neutrophils # Seg Neutrophils # Man Lymphocytes # (Manual) Monocytes # (Manual) Basophils # (Manual) Percent Retic PT INR APTT Heparin Anti-Xa Level 0.16 L POC ABG pH POC ABG pCO2 POC ABG pO2 Sodium Potassium Chloride Carbon Dioxide BUN Creatinine Glucose POC Glucose 203 H 221 H Calcium Phosphorus Iron TIBC Lactate Dehydrogenase Total Creatine Kinase NT-Pro-B Natriuret Pep Total Protein Albumin Zflus-6-Kpgarjbfe Zhjxd-2-Fxmcvihne Beta Globulins PEP Interpretation Cholesterol LDL Cholesterol Direct Vitamin B12 Urine WBC (Auto) Urine Creatinine Crossmatch 04/21/16 04/22/16 04/22/16 17:22 05:01 05:20 WBC RBC Hgb Hct MCV MCH MCHC RDW Plt Count Lymph % (Auto) [place] % (Auto) Lymph # [place] # Baso # Seg Neutrophils % Seg Neuts % (Manual) Lymphocytes % (Manual) Monocytes % (Manual) Seg Neutrophils # Seg Neutrophils # Man Lymphocytes # (Manual) Monocytes # (Manual) Basophils # (Manual) Percent Retic PT 17.5 H INR 1.44 H APTT Heparin Anti-Xa Level POC ABG pH 7.460 H POC ABG pCO2 27.9 L POC ABG pO2 Sodium Potassium Chloride Carbon Dioxide BUN Creatinine Glucose POC Glucose 189 H Calcium Phosphorus Iron TIBC Lactate Dehydrogenase Total Creatine Kinase NT-Pro-B Natriuret Pep Total Protein Albumin Xxogy-7-Ejwtsousv Dluco-5-Duyxsokcu Beta Globulins PEP Interpretation Cholesterol LDL Cholesterol Direct Vitamin B12 Urine WBC (Auto) Urine Creatinine Crossmatch 04/22/16 04/22/16 04/22/16 05:43 06:40 08:08 WBC RBC Hgb Hct MCV MCH MCHC RDW Plt Count Lymph % (Auto) [place] % (Auto) Lymph # [place] # Baso # Seg Neutrophils % Seg Neuts % (Manual) Lymphocytes % (Manual) Monocytes % (Manual) Seg Neutrophils # Seg Neutrophils # Man Lymphocytes # (Manual) Monocytes # (Manual) Basophils # (Manual) Percent Retic PT INR APTT Heparin Anti-Xa Level POC ABG pH POC ABG pCO2 POC ABG pO2 Sodium Potassium Chloride Carbon Dioxide BUN Creatinine Glucose POC Glucose 56 L 136 H 134 H Calcium Phosphorus Iron TIBC Lactate Dehydrogenase Total Creatine Kinase NT-Pro-B Natriuret Pep Total Protein Albumin Khplw-3-Gstenircx Ecjce-8-Mhyivknxz Beta Globulins PEP Interpretation Cholesterol LDL Cholesterol Direct Vitamin B12 Urine WBC (Auto) Urine Creatinine Crossmatch 04/22/16 04/22/16 04/22/16 11:18 12:10 18:17 WBC RBC Hgb Hct MCV MCH MCHC RDW Plt Count Lymph % (Auto) [place] % (Auto) Lymph # [place] # Baso # Seg Neutrophils % Seg Neuts % (Manual) Lymphocytes % (Manual) Monocytes % (Manual) Seg Neutrophils # Seg Neutrophils # Man Lymphocytes # (Manual) Monocytes # (Manual) Basophils # (Manual) Percent Retic PT INR APTT Heparin Anti-Xa Level 0.12 L POC ABG pH POC ABG pCO2 POC ABG pO2 Sodium Potassium Chloride Carbon Dioxide BUN Creatinine Glucose POC Glucose 142 H 227 H Calcium Phosphorus Iron TIBC Lactate Dehydrogenase Total Creatine Kinase NT-Pro-B Natriuret Pep Total Protein Albumin Ofiiz-8-Ccsfqyxcg Zsfis-8-Ifwgriscd Beta Globulins PEP Interpretation Cholesterol LDL Cholesterol Direct Vitamin B12 Urine WBC (Auto) Urine Creatinine Crossmatch 04/22/16 04/22/16 04/23/16 22:28 23:47 04:49 WBC RBC Hgb Hct MCV MCH MCHC RDW Plt Count Lymph % (Auto) [place] % (Auto) Lymph # [place] # Baso # Seg Neutrophils % Seg Neuts % (Manual) Lymphocytes % (Manual) Monocytes % (Manual) Seg Neutrophils # Seg Neutrophils # Man Lymphocytes # (Manual) Monocytes # (Manual) Basophils # (Manual) Percent Retic PT INR APTT Heparin Anti-Xa Level 0.16 L POC ABG pH POC ABG pCO2 32.6 L POC ABG pO2 122 H Sodium Potassium Chloride Carbon Dioxide BUN Creatinine Glucose POC Glucose 266 H Calcium Phosphorus Iron TIBC Lactate Dehydrogenase Total Creatine Kinase NT-Pro-B Natriuret Pep Total Protein Albumin Fuitw-9-Gpothamrc Zhalr-0-Dajzbjman Beta Globulins PEP Interpretation Cholesterol LDL Cholesterol Direct Vitamin B12 Urine WBC (Auto) Urine Creatinine Crossmatch 04/23/16 04/23/16 04/23/16 05:41 08:05 08:34 WBC RBC Hgb Hct MCV MCH MCHC RDW Plt Count Lymph % (Auto) [place] % (Auto) Lymph # [place] # Baso # Seg Neutrophils % Seg Neuts % (Manual) Lymphocytes % (Manual) Monocytes % (Manual) Seg Neutrophils # Seg Neutrophils # Man Lymphocytes # (Manual) Monocytes # (Manual) Basophils # (Manual) Percent Retic PT INR APTT Heparin Anti-Xa Level POC ABG pH POC ABG pCO2 POC ABG pO2 Sodium Potassium Chloride 109.5 H Carbon Dioxide 21 L BUN 23 H Creatinine Glucose 227 H POC Glucose 227 H 224 H Calcium 8.2 L Phosphorus Iron TIBC Lactate Dehydrogenase Total Creatine Kinase NT-Pro-B Natriuret Pep Total Protein Albumin Kgmoa-8-Hkabngehw Nivud-8-Nwnpgiovl Beta Globulins PEP Interpretation Cholesterol LDL Cholesterol Direct Vitamin B12 Urine WBC (Auto) Urine Creatinine Crossmatch 04/23/16 04/23/16 04/23/16 10:45 11:37 22:49 WBC RBC Hgb Hct MCV MCH MCHC RDW Plt Count Lymph % (Auto) [place] % (Auto) Lymph # [place] # Baso # Seg Neutrophils % Seg Neuts % (Manual) Lymphocytes % (Manual) Monocytes % (Manual) Seg Neutrophils # Seg Neutrophils # Man Lymphocytes # (Manual) Monocytes # (Manual) Basophils # (Manual) Percent Retic PT 15.9 H INR 1.28 H APTT Heparin Anti-Xa Level 0.12 L POC ABG pH POC ABG pCO2 POC ABG pO2 Sodium Potassium Chloride Carbon Dioxide BUN Creatinine Glucose POC Glucose 256 H Calcium Phosphorus Iron TIBC Lactate Dehydrogenase Total Creatine Kinase NT-Pro-B Natriuret Pep Total Protein Albumin Mxgki-2-Alhvfcncz Xvqev-4-Wnaulcvrc Beta Globulins PEP Interpretation Cholesterol LDL Cholesterol Direct Vitamin B12 Urine WBC (Auto) Urine Creatinine Crossmatch 04/23/16 04/24/16 04/24/16 23:59 05:29 06:03 WBC RBC Hgb Hct MCV MCH MCHC RDW Plt Count Lymph % (Auto) [place] % (Auto) Lymph # [place] # Baso # Seg Neutrophils % Seg Neuts % (Manual) Lymphocytes % (Manual) Monocytes % (Manual) Seg Neutrophils # Seg Neutrophils # Man Lymphocytes # (Manual) Monocytes # (Manual) Basophils # (Manual) Percent Retic PT INR APTT Heparin Anti-Xa Level POC ABG pH 7.464 H POC ABG pCO2 32.4 L POC ABG pO2 115 H Sodium Potassium Chloride Carbon Dioxide BUN Creatinine Glucose POC Glucose 176 H 256 H Calcium Phosphorus Iron TIBC Lactate Dehydrogenase Total Creatine Kinase NT-Pro-B Natriuret Pep Total Protein Albumin Cuflb-7-Fbeazzxox Sqsqg-1-Fmqwspaem Beta Globulins PEP Interpretation Cholesterol LDL Cholesterol Direct Vitamin B12 Urine WBC (Auto) Urine Creatinine Crossmatch 04/24/16 04/24/16 04/24/16 07:59 12:10 17:17 WBC RBC Hgb Hct MCV MCH MCHC RDW Plt Count Lymph % (Auto) [place] % (Auto) Lymph # [place] # Baso # Seg Neutrophils % Seg Neuts % (Manual) Lymphocytes % (Manual) Monocytes % (Manual) Seg Neutrophils # Seg Neutrophils # Man Lymphocytes # (Manual) Monocytes # (Manual) Basophils # (Manual) Percent Retic PT INR APTT Heparin Anti-Xa Level 0.18 L POC ABG pH POC ABG pCO2 POC ABG pO2 Sodium Potassium Chloride Carbon Dioxide BUN Creatinine Glucose POC Glucose 304 H 325 H Calcium Phosphorus Iron TIBC Lactate Dehydrogenase Total Creatine Kinase NT-Pro-B Natriuret Pep Total Protein Albumin Rskqz-9-Fsygagydv Gisog-0-Bxveilhqm Beta Globulins PEP Interpretation Cholesterol LDL Cholesterol Direct Vitamin B12 Urine WBC (Auto) Urine Creatinine Crossmatch 04/25/16 04/25/16 04/25/16 00:52 06:40 06:44 WBC RBC Hgb Hct MCV MCH MCHC RDW Plt Count Lymph % (Auto) [place] % (Auto) Lymph # [place] # Baso # Seg Neutrophils % Seg Neuts % (Manual) Lymphocytes % (Manual) Monocytes % (Manual) Seg Neutrophils # Seg Neutrophils # Man Lymphocytes # (Manual) Monocytes # (Manual) Basophils # (Manual) Percent Retic PT INR APTT Heparin Anti-Xa Level 0.11 L POC ABG pH POC ABG pCO2 POC ABG pO2 Sodium Potassium Chloride Carbon Dioxide BUN Creatinine Glucose POC Glucose 212 H 184 H Calcium Phosphorus Iron TIBC Lactate Dehydrogenase Total Creatine Kinase NT-Pro-B Natriuret Pep Total Protein Albumin Xrenu-9-Ttntzrfez Mlrwn-0-Zcwlayqtz Beta Globulins PEP Interpretation Cholesterol LDL Cholesterol Direct Vitamin B12 Urine WBC (Auto) Urine Creatinine Crossmatch 04/25/16 04/25/16 04/25/16 11:40 13:26 17:27 WBC RBC Hgb Hct MCV MCH MCHC RDW Plt Count Lymph % (Auto) [place] % (Auto) Lymph # [place] # Baso # Seg Neutrophils % Seg Neuts % (Manual) Lymphocytes % (Manual) Monocytes % (Manual) Seg Neutrophils # Seg Neutrophils # Man Lymphocytes # (Manual) Monocytes # (Manual) Basophils # (Manual) Percent Retic PT INR APTT Heparin Anti-Xa Level 0.21 L POC ABG pH POC ABG pCO2 POC ABG pO2 Sodium Potassium Chloride Carbon Dioxide BUN Creatinine Glucose POC Glucose 206 H 204 H Calcium Phosphorus Iron TIBC Lactate Dehydrogenase Total Creatine Kinase NT-Pro-B Natriuret Pep Total Protein Albumin Lpmlg-9-Zqxqxtutv Ihujq-9-Tllkecolj Beta Globulins PEP Interpretation Cholesterol LDL Cholesterol Direct Vitamin B12 Urine WBC (Auto) Urine Creatinine Crossmatch 04/25/16 04/26/16 04/26/16 23:46 06:31 11:51 WBC RBC Hgb Hct MCV MCH MCHC RDW Plt Count Lymph % (Auto) [place] % (Auto) Lymph # [place] # Baso # Seg Neutrophils % Seg Neuts % (Manual) Lymphocytes % (Manual) Monocytes % (Manual) Seg Neutrophils # Seg Neutrophils # Man Lymphocytes # (Manual) Monocytes # (Manual) Basophils # (Manual) Percent Retic PT INR APTT Heparin Anti-Xa Level POC ABG pH POC ABG pCO2 POC ABG pO2 Sodium Potassium Chloride Carbon Dioxide BUN Creatinine Glucose POC Glucose 162 H 148 H 178 H Calcium Phosphorus Iron TIBC Lactate Dehydrogenase Total Creatine Kinase NT-Pro-B Natriuret Pep Total Protein Albumin Mncij-3-Xhynabywq Sihal-8-Owacevsly Beta Globulins PEP Interpretation Cholesterol LDL Cholesterol Direct Vitamin B12 Urine WBC (Auto) Urine Creatinine Crossmatch 04/26/16 04/26/16 04/26/16 12:17 16:16 18:14 WBC RBC Hgb Hct MCV MCH MCHC RDW Plt Count Lymph % (Auto) [place] % (Auto) Lymph # [place] # Baso # Seg Neutrophils % Seg Neuts % (Manual) Lymphocytes % (Manual) Monocytes % (Manual) Seg Neutrophils # Seg Neutrophils # Man Lymphocytes # (Manual) Monocytes # (Manual) Basophils # (Manual) Percent Retic PT INR APTT Heparin Anti-Xa Level POC ABG pH 7.513 H POC ABG pCO2 POC ABG pO2 76 L Sodium Potassium Chloride Carbon Dioxide BUN Creatinine Glucose POC Glucose 186 H 172 H Calcium Phosphorus Iron TIBC Lactate Dehydrogenase Total Creatine Kinase NT-Pro-B Natriuret Pep Total Protein Albumin Gsesu-6-Knzvjgbwc Ppxay-3-Gkbprfuxa Beta Globulins PEP Interpretation Cholesterol LDL Cholesterol Direct Vitamin B12 Urine WBC (Auto) Urine Creatinine Crossmatch 04/26/16 04/26/16 04/27/16 19:27 23:28 04:21 WBC 13.1 H RBC 2.99 L Hgb 7.8 L Hct 24.0 L MCV 81 L MCH 26 L MCHC RDW 16.7 H Plt Count 486 H Lymph % (Auto) 12.5 L [place] % (Auto) 7.9 H Lymph # [place] # 1.0 H Baso # Seg Neutrophils % 77.5 H Seg Neuts % (Manual) Lymphocytes % (Manual) Monocytes % (Manual) Seg Neutrophils # 10.2 H Seg Neutrophils # Man Lymphocytes # (Manual) Monocytes # (Manual) Basophils # (Manual) Percent Retic PT INR APTT Heparin Anti-Xa Level 0.22 L POC ABG pH POC ABG pCO2 POC ABG pO2 Sodium Potassium Chloride Carbon Dioxide BUN Creatinine Glucose POC Glucose 141 H Calcium Phosphorus Iron TIBC Lactate Dehydrogenase Total Creatine Kinase NT-Pro-B Natriuret Pep Total Protein Albumin Newqc-1-Ndutklyzi Gnprg-1-Pxjhslomf Beta Globulins PEP Interpretation Cholesterol LDL Cholesterol Direct Vitamin B12 Urine WBC (Auto) Urine Creatinine Crossmatch 04/27/16 04/27/16 04/27/16 04:21 05:46 11:04 WBC RBC Hgb Hct MCV MCH MCHC RDW Plt Count Lymph % (Auto) [place] % (Auto) Lymph # [place] # Baso # Seg Neutrophils % Seg Neuts % (Manual) Lymphocytes % (Manual) Monocytes % (Manual) Seg Neutrophils # Seg Neutrophils # Man Lymphocytes # (Manual) Monocytes # (Manual) Basophils # (Manual) Percent Retic PT INR APTT Heparin Anti-Xa Level POC ABG pH 7.489 H POC ABG pCO2 POC ABG pO2 71 L Sodium Potassium Chloride Carbon Dioxide BUN Creatinine 0.6 L Glucose 187 H POC Glucose 192 H Calcium 8.0 L Phosphorus Iron TIBC Lactate Dehydrogenase Total Creatine Kinase NT-Pro-B Natriuret Pep Total Protein 6.0 L Albumin 2.0 L Rcfae-7-Etrdqqrka Frepl-6-Znfayvhwe Beta Globulins PEP Interpretation Cholesterol LDL Cholesterol Direct Vitamin B12 Urine WBC (Auto) Urine Creatinine Crossmatch 04/27/16 04/27/16 04/27/16 14:12 21:58 23:38 WBC RBC Hgb Hct MCV MCH MCHC RDW Plt Count Lymph % (Auto) [place] % (Auto) Lymph # [place] # Baso # Seg Neutrophils % Seg Neuts % (Manual) Lymphocytes % (Manual) Monocytes % (Manual) Seg Neutrophils # Seg Neutrophils # Man Lymphocytes # (Manual) Monocytes # (Manual) Basophils # (Manual) Percent Retic PT INR APTT Heparin Anti-Xa Level 0.24 L POC ABG pH POC ABG pCO2 POC ABG pO2 Sodium Potassium Chloride Carbon Dioxide BUN Creatinine Glucose POC Glucose 216 H 181 H Calcium Phosphorus Iron TIBC Lactate Dehydrogenase Total Creatine Kinase NT-Pro-B Natriuret Pep Total Protein Albumin Mqzut-1-Iwdgcuaqq Ufppr-5-Ferukxwdm Beta Globulins PEP Interpretation Cholesterol LDL Cholesterol Direct Vitamin B12 Urine WBC (Auto) Urine Creatinine Crossmatch 04/28/16 04/28/16 04/28/16 04:28 05:52 11:31 WBC RBC Hgb Hct MCV MCH MCHC RDW Plt Count Lymph % (Auto) [place] % (Auto) Lymph # [place] # Baso # Seg Neutrophils % Seg Neuts % (Manual) Lymphocytes % (Manual) Monocytes % (Manual) Seg Neutrophils # Seg Neutrophils # Man Lymphocytes # (Manual) Monocytes # (Manual) Basophils # (Manual) Percent Retic PT INR APTT Heparin Anti-Xa Level POC ABG pH 7.524 H POC ABG pCO2 POC ABG pO2 Sodium Potassium Chloride Carbon Dioxide BUN Creatinine Glucose POC Glucose 254 H 280 H Calcium Phosphorus Iron TIBC Lactate Dehydrogenase Total Creatine Kinase NT-Pro-B Natriuret Pep Total Protein Albumin Kynot-6-Yeiuhhfcw Ofsuo-1-Ptitjyfnp Beta Globulins PEP Interpretation Cholesterol LDL Cholesterol Direct Vitamin B12 Urine WBC (Auto) Urine Creatinine Crossmatch 04/28/16 04/28/16 04/29/16 17:30 19:52 00:47 WBC RBC Hgb Hct MCV MCH MCHC RDW Plt Count Lymph % (Auto) [place] % (Auto) Lymph # [place] # Baso # Seg Neutrophils % Seg Neuts % (Manual) Lymphocytes % (Manual) Monocytes % (Manual) Seg Neutrophils # Seg Neutrophils # Man Lymphocytes # (Manual) Monocytes # (Manual) Basophils # (Manual) Percent Retic PT INR APTT Heparin Anti-Xa Level 0.15 L POC ABG pH POC ABG pCO2 POC ABG pO2 Sodium Potassium Chloride Carbon Dioxide BUN Creatinine Glucose POC Glucose 208 H 265 H Calcium Phosphorus Iron TIBC Lactate Dehydrogenase Total Creatine Kinase NT-Pro-B Natriuret Pep Total Protein Albumin Ddmdx-0-Tlacjeggv Ufatj-2-Apccvdssf Beta Globulins PEP Interpretation Cholesterol LDL Cholesterol Direct Vitamin B12 Urine WBC (Auto) Urine Creatinine Crossmatch 04/29/16 04/29/16 04/29/16 04:00 04:00 04:29 WBC 13.4 H RBC 2.56 L Hgb 6.9 L Hct 20.6 L MCV 81 L MCH 27 L MCHC RDW 16.2 H Plt Count 513 H Lymph % (Auto) 10.0 L [place] % (Auto) 12.0 H Lymph # [place] # 1.6 H Baso # Seg Neutrophils % 77.1 H Seg Neuts % (Manual) Lymphocytes % (Manual) Monocytes % (Manual) Seg Neutrophils # 10.4 H Seg Neutrophils # Man Lymphocytes # (Manual) Monocytes # (Manual) Basophils # (Manual) Percent Retic PT INR APTT Heparin Anti-Xa Level POC ABG pH 7.501 H POC ABG pCO2 POC ABG pO2 76 L Sodium Potassium Chloride Carbon Dioxide BUN 27 H Creatinine Glucose 204 H POC Glucose Calcium 8.1 L Phosphorus Iron TIBC Lactate Dehydrogenase Total Creatine Kinase NT-Pro-B Natriuret Pep Total Protein Albumin Nmojj-8-Zsmcxrvyb Wxnqk-4-Hxmdwvjma Beta Globulins PEP Interpretation Cholesterol LDL Cholesterol Direct Vitamin B12 Urine WBC (Auto) Urine Creatinine Crossmatch 04/29/16 04/29/16 04/29/16 06:03 10:05 10:16 WBC RBC Hgb Hct MCV MCH MCHC RDW Plt Count Lymph % (Auto) [place] % (Auto) Lymph # [place] # Baso # Seg Neutrophils % Seg Neuts % (Manual) Lymphocytes % (Manual) Monocytes % (Manual) Seg Neutrophils # Seg Neutrophils # Man Lymphocytes # (Manual) Monocytes # (Manual) Basophils # (Manual) Percent Retic 3.68 H PT INR APTT Heparin Anti-Xa Level POC ABG pH POC ABG pCO2 POC ABG pO2 Sodium Potassium Chloride Carbon Dioxide BUN Creatinine Glucose POC Glucose 192 H Calcium Phosphorus Iron TIBC Lactate Dehydrogenase Total Creatine Kinase NT-Pro-B Natriuret Pep Total Protein Albumin Plpzy-8-Zxwstundw Epygo-4-Vzjhtmtqw Beta Globulins PEP Interpretation Cholesterol LDL Cholesterol Direct Vitamin B12 Urine WBC (Auto) Urine Creatinine Crossmatch See Detail 04/29/16 04/29/16 04/29/16 10:16 10:16 11:23 WBC RBC Hgb Hct MCV MCH MCHC RDW Plt Count Lymph % (Auto) [place] % (Auto) Lymph # [place] # Baso # Seg Neutrophils % Seg Neuts % (Manual) Lymphocytes % (Manual) Monocytes % (Manual) Seg Neutrophils # Seg Neutrophils # Man Lymphocytes # (Manual) Monocytes # (Manual) Basophils # (Manual) Percent Retic PT INR APTT Heparin Anti-Xa Level POC ABG pH POC ABG pCO2 POC ABG pO2 Sodium Potassium Chloride Carbon Dioxide BUN Creatinine Glucose POC Glucose 116 H Calcium Phosphorus Iron 10 L TIBC 138 L Lactate Dehydrogenase 204 H Total Creatine Kinase NT-Pro-B Natriuret Pep Total Protein Albumin Iaddz-0-Hgratewfr Ahplw-1-Spuxczfit Beta Globulins PEP Interpretation Cholesterol LDL Cholesterol Direct Vitamin B12 1005 H Urine WBC (Auto) Urine Creatinine Crossmatch 04/29/16 04/29/16 04/30/16 17:34 23:19 03:19 WBC RBC Hgb 9.0 L Hct 26.7 L D MCV MCH MCHC RDW Plt Count Lymph % (Auto) [place] % (Auto) Lymph # [place] # Baso # Seg Neutrophils % Seg Neuts % (Manual) Lymphocytes % (Manual) Monocytes % (Manual) Seg Neutrophils # Seg Neutrophils # Man Lymphocytes # (Manual) Monocytes # (Manual) Basophils # (Manual) Percent Retic PT INR APTT Heparin Anti-Xa Level POC ABG pH POC ABG pCO2 POC ABG pO2 Sodium Potassium Chloride Carbon Dioxide BUN Creatinine Glucose POC Glucose 142 H 242 H Calcium Phosphorus Iron TIBC Lactate Dehydrogenase Total Creatine Kinase NT-Pro-B Natriuret Pep Total Protein Albumin Nhbea-8-Bostebuep Csmcn-4-Miyisoyxu Beta Globulins PEP Interpretation Cholesterol LDL Cholesterol Direct Vitamin B12 Urine WBC (Auto) Urine Creatinine Crossmatch 04/30/16 04/30/16 04/30/16 04:10 04:10 04:32 WBC 13.8 H RBC 3.54 L Hgb 9.3 L Hct 29.1 L MCV 82 L MCH 26 L MCHC RDW 16.5 H Plt Count 535 H Lymph % (Auto) 7.5 L [place] % (Auto) 13.8 H Lymph # 1.0 L [place] # 1.9 H Baso # Seg Neutrophils % 78.0 H Seg Neuts % (Manual) Lymphocytes % (Manual) Monocytes % (Manual) Seg Neutrophils # 10.7 H Seg Neutrophils # Man Lymphocytes # (Manual) Monocytes # (Manual) Basophils # (Manual) Percent Retic PT INR APTT Heparin Anti-Xa Level POC ABG pH 7.519 H POC ABG pCO2 33.6 L POC ABG pO2 79 L Sodium 146 H Potassium Chloride Carbon Dioxide BUN Creatinine 0.7 L Glucose 242 H POC Glucose Calcium 8.3 L Phosphorus Iron TIBC Lactate Dehydrogenase Total Creatine Kinase NT-Pro-B Natriuret Pep Total Protein Albumin Aevmt-0-Gfnfjgtoa Vxryo-7-Kpzanrwpc Beta Globulins PEP Interpretation Cholesterol LDL Cholesterol Direct Vitamin B12 Urine WBC (Auto) Urine Creatinine Crossmatch 04/30/16 04/30/16 04/30/16 05:33 11:23 17:26 WBC RBC Hgb Hct MCV MCH MCHC RDW Plt Count Lymph % (Auto) [place] % (Auto) Lymph # [place] # Baso # Seg Neutrophils % Seg Neuts % (Manual) Lymphocytes % (Manual) Monocytes % (Manual) Seg Neutrophils # Seg Neutrophils # Man Lymphocytes # (Manual) Monocytes # (Manual) Basophils # (Manual) Percent Retic PT INR APTT Heparin Anti-Xa Level POC ABG pH POC ABG pCO2 POC ABG pO2 Sodium Potassium Chloride Carbon Dioxide BUN Creatinine Glucose POC Glucose 242 H 305 H 281 H Calcium Phosphorus Iron TIBC Lactate Dehydrogenase Total Creatine Kinase NT-Pro-B Natriuret Pep Total Protein Albumin Jjkxs-3-Odylyepmi Nsyvc-8-Mpcgweplr Beta Globulins PEP Interpretation Cholesterol LDL Cholesterol Direct Vitamin B12 Urine WBC (Auto) Urine Creatinine Crossmatch 04/30/16 05/01/16 05/01/16 23:53 04:00 04:00 WBC 15.9 H RBC 2.99 L Hgb 7.9 L Hct 24.4 L MCV 82 L MCH 26 L MCHC RDW 16.9 H Plt Count 481 H Lymph % (Auto) 9.3 L [place] % (Auto) 15.0 H Lymph # [place] # 2.4 H Baso # Seg Neutrophils % 74.9 H Seg Neuts % (Manual) Lymphocytes % (Manual) Monocytes % (Manual) Seg Neutrophils # 11.9 H Seg Neutrophils # Man Lymphocytes # (Manual) Monocytes # (Manual) Basophils # (Manual) Percent Retic PT INR APTT Heparin Anti-Xa Level POC ABG pH POC ABG pCO2 POC ABG pO2 Sodium 147 H Potassium Chloride 107.8 H Carbon Dioxide BUN 22 H Creatinine 0.7 L Glucose 229 H POC Glucose 207 H Calcium 8.2 L Phosphorus Iron TIBC Lactate Dehydrogenase Total Creatine Kinase NT-Pro-B Natriuret Pep Total Protein Albumin Areob-4-Yzdmxspxl Wmcel-1-Jwoiybwst Beta Globulins PEP Interpretation Cholesterol LDL Cholesterol Direct Vitamin B12 Urine WBC (Auto) Urine Creatinine Crossmatch 05/01/16 05/01/16 05/01/16 05:12 07:41 12:33 WBC RBC Hgb Hct MCV MCH MCHC RDW Plt Count Lymph % (Auto) [place] % (Auto) Lymph # [place] # Baso # Seg Neutrophils % Seg Neuts % (Manual) Lymphocytes % (Manual) Monocytes % (Manual) Seg Neutrophils # Seg Neutrophils # Man Lymphocytes # (Manual) Monocytes # (Manual) Basophils # (Manual) Percent Retic PT INR APTT Heparin Anti-Xa Level 0.16 L POC ABG pH POC ABG pCO2 POC ABG pO2 Sodium Potassium Chloride Carbon Dioxide BUN Creatinine Glucose POC Glucose 284 H 186 H Calcium Phosphorus Iron TIBC Lactate Dehydrogenase Total Creatine Kinase NT-Pro-B Natriuret Pep Total Protein Albumin Gbofb-4-Wglwrsabz Uilyg-8-Izavtdjbv Beta Globulins PEP Interpretation Cholesterol LDL Cholesterol Direct Vitamin B12 Urine WBC (Auto) Urine Creatinine Crossmatch 05/01/16 05/01/16 05/02/16 17:24 23:19 04:48 WBC 17.2 H RBC 3.09 L Hgb 8.1 L Hct 25.5 L MCV 83 L MCH 26 L MCHC RDW 17.3 H Plt Count 507 H Lymph % (Auto) 8.0 L [place] % (Auto) 13.6 H Lymph # [place] # 2.3 H Baso # Seg Neutrophils % 77.5 H Seg Neuts % (Manual) Lymphocytes % (Manual) Monocytes % (Manual) Seg Neutrophils # 13.4 H Seg Neutrophils # Man Lymphocytes # (Manual) Monocytes # (Manual) Basophils # (Manual) Percent Retic PT INR APTT Heparin Anti-Xa Level POC ABG pH POC ABG pCO2 POC ABG pO2 Sodium Potassium Chloride Carbon Dioxide BUN Creatinine Glucose POC Glucose 171 H 132 H Calcium Phosphorus Iron TIBC Lactate Dehydrogenase Total Creatine Kinase NT-Pro-B Natriuret Pep Total Protein Albumin Hkuka-8-Elkxqbitj Vdgtn-6-Pfshsfomo Beta Globulins PEP Interpretation Cholesterol LDL Cholesterol Direct Vitamin B12 Urine WBC (Auto) Urine Creatinine Crossmatch 05/02/16 05/02/16 05/02/16 04:48 04:48 05:42 WBC RBC Hgb Hct MCV MCH MCHC RDW Plt Count Lymph % (Auto) [place] % (Auto) Lymph # [place] # Baso # Seg Neutrophils % Seg Neuts % (Manual) Lymphocytes % (Manual) Monocytes % (Manual) Seg Neutrophils # Seg Neutrophils # Man Lymphocytes # (Manual) Monocytes # (Manual) Basophils # (Manual) Percent Retic PT INR APTT Heparin Anti-Xa Level 0.19 L POC ABG pH POC ABG pCO2 POC ABG pO2 Sodium 149 H Potassium Chloride 109.9 H Carbon Dioxide BUN 24 H Creatinine Glucose 224 H POC Glucose 253 H Calcium 8.2 L Phosphorus Iron TIBC Lactate Dehydrogenase Total Creatine Kinase NT-Pro-B Natriuret Pep Total Protein Albumin Hvouj-9-Jjlqrwibs Wdlio-0-Poagwnrtj Beta Globulins PEP Interpretation Cholesterol LDL Cholesterol Direct Vitamin B12 Urine WBC (Auto) Urine Creatinine Crossmatch 05/02/16 05/02/16 05/02/16 12:01 16:40 23:35 WBC RBC Hgb Hct MCV MCH MCHC RDW Plt Count Lymph % (Auto) [place] % (Auto) Lymph # [place] # Baso # Seg Neutrophils % Seg Neuts % (Manual) Lymphocytes % (Manual) Monocytes % (Manual) Seg Neutrophils # Seg Neutrophils # Man Lymphocytes # (Manual) Monocytes # (Manual) Basophils # (Manual) Percent Retic PT INR APTT Heparin Anti-Xa Level POC ABG pH POC ABG pCO2 POC ABG pO2 Sodium Potassium Chloride Carbon Dioxide BUN Creatinine Glucose POC Glucose 197 H 126 H 303 H Calcium Phosphorus Iron TIBC Lactate Dehydrogenase Total Creatine Kinase NT-Pro-B Natriuret Pep Total Protein Albumin Gzxxw-8-Xsrltwtlk Tjhrm-1-Fnyqbxmzd Beta Globulins PEP Interpretation Cholesterol LDL Cholesterol Direct Vitamin B12 Urine WBC (Auto) Urine Creatinine Crossmatch 05/03/16 05/03/16 05/03/16 04:31 04:31 04:31 WBC 19.1 H RBC 3.15 L Hgb 8.6 L Hct 25.7 L MCV 82 L MCH MCHC RDW 17.4 H Plt Count 525 H Lymph % (Auto) [place] % (Auto) Lymph # [place] # Baso # Seg Neutrophils % Seg Neuts % (Manual) Lymphocytes % (Manual) 10.0 L Monocytes % (Manual) 13.0 H Seg Neutrophils # Seg Neutrophils # Man 13.2 H Lymphocytes # (Manual) Monocytes # (Manual) 2.5 H Basophils # (Manual) 0.2 H Percent Retic PT INR APTT Heparin Anti-Xa Level 0.16 L POC ABG pH POC ABG pCO2 POC ABG pO2 Sodium 151 H Potassium Chloride 112.9 H Carbon Dioxide BUN 24 H Creatinine 0.7 L Glucose 303 H POC Glucose Calcium Phosphorus Iron TIBC Lactate Dehydrogenase Total Creatine Kinase NT-Pro-B Natriuret Pep Total Protein Albumin Crsex-6-Behzjvklf Mdexo-4-Bbusenpqc Beta Globulins PEP Interpretation Cholesterol LDL Cholesterol Direct Vitamin B12 Urine WBC (Auto) Urine Creatinine Crossmatch 05/03/16 05/03/16 05/04/16 12:08 18:05 00:11 WBC RBC Hgb Hct MCV MCH MCHC RDW Plt Count Lymph % (Auto) [place] % (Auto) Lymph # [place] # Baso # Seg Neutrophils % Seg Neuts % (Manual) Lymphocytes % (Manual) Monocytes % (Manual) Seg Neutrophils # Seg Neutrophils # Man Lymphocytes # (Manual) Monocytes # (Manual) Basophils # (Manual) Percent Retic PT INR APTT Heparin Anti-Xa Level POC ABG pH POC ABG pCO2 POC ABG pO2 Sodium Potassium Chloride Carbon Dioxide BUN Creatinine Glucose POC Glucose 452 H 370 H 374 H Calcium Phosphorus Iron TIBC Lactate Dehydrogenase Total Creatine Kinase NT-Pro-B Natriuret Pep Total Protein Albumin Lxgnc-2-Wbrsxvkoc Rpdtw-6-Yxkhheild Beta Globulins PEP Interpretation Cholesterol LDL Cholesterol Direct Vitamin B12 Urine WBC (Auto) Urine Creatinine Crossmatch 05/04/16 05/04/16 05/04/16 04:31 04:31 04:31 WBC 19.8 H RBC 2.90 L Hgb 7.8 L Hct 23.8 L MCV 82 L MCH 27 L MCHC RDW 17.9 H Plt Count 504 H Lymph % (Auto) [place] % (Auto) Lymph # [place] # Baso # Seg Neutrophils % Seg Neuts % (Manual) Lymphocytes % (Manual) 11.0 L Monocytes % (Manual) 8.0 H Seg Neutrophils # Seg Neutrophils # Man 13.3 H Lymphocytes # (Manual) Monocytes # (Manual) 1.6 H Basophils # (Manual) Percent Retic PT INR APTT Heparin Anti-Xa Level 0.15 L POC ABG pH POC ABG pCO2 POC ABG pO2 Sodium 146 H Potassium Chloride Carbon Dioxide BUN 30 H Creatinine 0.7 L Glucose 321 H POC Glucose Calcium 8.3 L Phosphorus Iron TIBC Lactate Dehydrogenase Total Creatine Kinase NT-Pro-B Natriuret Pep Total Protein Albumin Aswez-6-Rggfhbbxm Ietxw-8-Igtcetcpn Beta Globulins PEP Interpretation Cholesterol LDL Cholesterol Direct Vitamin B12 Urine WBC (Auto) Urine Creatinine Crossmatch 05/04/16 05/04/16 05/04/16 10:20 11:57 17:36 WBC RBC Hgb Hct MCV MCH MCHC RDW Plt Count Lymph % (Auto) [place] % (Auto) Lymph # [place] # Baso # Seg Neutrophils % Seg Neuts % (Manual) Lymphocytes % (Manual) Monocytes % (Manual) Seg Neutrophils # Seg Neutrophils # Man Lymphocytes # (Manual) Monocytes # (Manual) Basophils # (Manual) Percent Retic PT INR APTT Heparin Anti-Xa Level POC ABG pH POC ABG pCO2 POC ABG pO2 Sodium Potassium Chloride Carbon Dioxide BUN Creatinine Glucose POC Glucose 303 H 271 H Calcium Phosphorus Iron TIBC Lactate Dehydrogenase Total Creatine Kinase NT-Pro-B Natriuret Pep Total Protein Albumin Grsrz-0-Cjkmqukzl Gzzez-9-Eepbbxbaa Beta Globulins PEP Interpretation Cholesterol LDL Cholesterol Direct Vitamin B12 Urine WBC (Auto) > 182.0 H Urine Creatinine Crossmatch 05/04/16 05/05/16 05/05/16 23:53 04:13 04:13 WBC 20.9 H RBC 2.92 L Hgb 7.6 L Hct 23.9 L MCV 82 L MCH 26 L MCHC RDW 17.9 H Plt Count 526 H Lymph % (Auto) [place] % (Auto) Lymph # [place] # Baso # Seg Neutrophils % Seg Neuts % (Manual) 93.0 H Lymphocytes % (Manual) 2.0 L Monocytes % (Manual) Seg Neutrophils # Seg Neutrophils # Man 19.4 H Lymphocytes # (Manual) 0.4 L Monocytes # (Manual) Basophils # (Manual) Percent Retic PT INR APTT Heparin Anti-Xa Level POC ABG pH POC ABG pCO2 POC ABG pO2 Sodium 146 H Potassium Chloride Carbon Dioxide BUN 30 H Creatinine 0.7 L Glucose 250 H POC Glucose 235 H Calcium 8.1 L Phosphorus Iron TIBC Lactate Dehydrogenase Total Creatine Kinase NT-Pro-B Natriuret Pep Total Protein Albumin Ffbgo-0-Uwjzyrqfs Jcikz-1-Zhlpkjwyo Beta Globulins PEP Interpretation Cholesterol LDL Cholesterol Direct Vitamin B12 Urine WBC (Auto) Urine Creatinine Crossmatch 05/05/16 05/05/16 05/05/16 05:27 07:36 12:06 WBC RBC Hgb Hct MCV MCH MCHC RDW Plt Count Lymph % (Auto) [place] % (Auto) Lymph # [place] # Baso # Seg Neutrophils % Seg Neuts % (Manual) Lymphocytes % (Manual) Monocytes % (Manual) Seg Neutrophils # Seg Neutrophils # Man Lymphocytes # (Manual) Monocytes # (Manual) Basophils # (Manual) Percent Retic PT INR APTT Heparin Anti-Xa Level < 0.10 L POC ABG pH POC ABG pCO2 POC ABG pO2 Sodium Potassium Chloride Carbon Dioxide BUN Creatinine Glucose POC Glucose 287 H 301 H Calcium Phosphorus Iron TIBC Lactate Dehydrogenase Total Creatine Kinase NT-Pro-B Natriuret Pep Total Protein Albumin [id number] Beta Globulins PEP Interpretation Cholesterol LDL Cholesterol Direct Vitamin B12 Urine WBC (Auto) Urine Creatinine Crossmatch 05/05/16 05/05/16 05/06/16 15:58 17:30 00:10 WBC RBC Hgb Hct MCV MCH MCHC RDW Plt Count Lymph % (Auto) [place] % (Auto) Lymph # [place] # Baso # Seg Neutrophils % Seg Neuts % (Manual) Lymphocytes % (Manual) Monocytes % (Manual) Seg Neutrophils # Seg Neutrophils # Man Lymphocytes # (Manual) Monocytes # (Manual) Basophils # (Manual) Percent Retic PT INR APTT Heparin Anti-Xa Level 0.17 L POC ABG pH POC ABG pCO2 POC ABG pO2 Sodium Potassium Chloride Carbon Dioxide BUN Creatinine Glucose POC Glucose 226 H 161 H Calcium Phosphorus Iron TIBC Lactate Dehydrogenase Total Creatine Kinase NT-Pro-B Natriuret Pep Total Protein Albumin Trvcf-1-Jldrkgbhl Pqfqi-0-Mpgqytele Beta Globulins PEP Interpretation Cholesterol LDL Cholesterol Direct Vitamin B12 Urine WBC (Auto) Urine Creatinine Crossmatch 05/06/16 05/06/16 05/06/16 04:23 05:30 05:37 WBC RBC Hgb Hct MCV MCH MCHC RDW Plt Count Lymph % (Auto) [place] % (Auto) Lymph # [place] # Baso # Seg Neutrophils % Seg Neuts % (Manual) Lymphocytes % (Manual) Monocytes % (Manual) Seg Neutrophils # Seg Neutrophils # Man Lymphocytes # (Manual) Monocytes # (Manual) Basophils # (Manual) Percent Retic PT INR APTT Heparin Anti-Xa Level 0.15 L POC ABG pH 7.511 H POC ABG pCO2 POC ABG pO2 Sodium Potassium Chloride Carbon Dioxide BUN Creatinine Glucose POC Glucose 168 H Calcium Phosphorus Iron TIBC Lactate Dehydrogenase Total Creatine Kinase NT-Pro-B Natriuret Pep Total Protein Albumin Mksry-0-Odbrvwnnf Zvydp-2-Lpxxqsyxf Beta Globulins PEP Interpretation Cholesterol LDL Cholesterol Direct Vitamin B12 Urine WBC (Auto) Urine Creatinine Crossmatch 05/06/16 05/06/16 05/07/16 12:48 17:22 00:04 WBC RBC Hgb Hct MCV MCH MCHC RDW Plt Count Lymph % (Auto) [place] % (Auto) Lymph # [place] # Baso # Seg Neutrophils % Seg Neuts % (Manual) Lymphocytes % (Manual) Monocytes % (Manual) Seg Neutrophils # Seg Neutrophils # Man Lymphocytes # (Manual) Monocytes # (Manual) Basophils # (Manual) Percent Retic PT INR APTT Heparin Anti-Xa Level POC ABG pH POC ABG pCO2 POC ABG pO2 Sodium Potassium Chloride Carbon Dioxide BUN Creatinine Glucose POC Glucose 206 H 160 H 164 H Calcium Phosphorus Iron TIBC Lactate Dehydrogenase Total Creatine Kinase NT-Pro-B Natriuret Pep Total Protein Albumin Sjvcf-5-Bwuekfidw Yicuh-6-Fjqthlsmi Beta Globulins PEP Interpretation Cholesterol LDL Cholesterol Direct Vitamin B12 Urine WBC (Auto) Urine Creatinine Crossmatch 05/07/16 05/07/16 05/07/16 04:02 05:50 11:30 WBC RBC Hgb Hct MCV MCH MCHC RDW Plt Count Lymph % (Auto) [place] % (Auto) Lymph # [place] # Baso # Seg Neutrophils % Seg Neuts % (Manual) Lymphocytes % (Manual) Monocytes % (Manual) Seg Neutrophils # Seg Neutrophils # Man Lymphocytes # (Manual) Monocytes # (Manual) Basophils # (Manual) Percent Retic PT INR APTT Heparin Anti-Xa Level 0.15 L POC ABG pH POC ABG pCO2 POC ABG pO2 Sodium Potassium Chloride Carbon Dioxide BUN Creatinine Glucose POC Glucose 177 H 240 H Calcium Phosphorus Iron TIBC Lactate Dehydrogenase Total Creatine Kinase NT-Pro-B Natriuret Pep Total Protein Albumin Cxjbz-5-Rxemfoijs Qpvak-6-Eshqcsvez Beta Globulins PEP Interpretation Cholesterol LDL Cholesterol Direct Vitamin B12 Urine WBC (Auto) Urine Creatinine Crossmatch 05/07/16 05/07/16 05/07/16 12:46 17:57 23:54 WBC 20.8 H RBC 2.86 L Hgb 7.6 L Hct 23.3 L MCV 81 L MCH 26 L MCHC RDW 17.9 H Plt Count 559 H Lymph % (Auto) [place] % (Auto) Lymph # [place] # Baso # Seg Neutrophils % Seg Neuts % (Manual) Lymphocytes % (Manual) Monocytes % (Manual) Seg Neutrophils # Seg Neutrophils # Man Lymphocytes # (Manual) Monocytes # (Manual) Basophils # (Manual) Percent Retic PT INR APTT Heparin Anti-Xa Level POC ABG pH POC ABG pCO2 POC ABG pO2 Sodium Potassium Chloride Carbon Dioxide BUN Creatinine Glucose POC Glucose 279 H 201 H Calcium Phosphorus Iron TIBC Lactate Dehydrogenase Total Creatine Kinase NT-Pro-B Natriuret Pep Total Protein Albumin Tmgar-3-Nkbvqhiyb Trlpq-3-Eypgqlugy Beta Globulins PEP Interpretation Cholesterol LDL Cholesterol Direct Vitamin B12 Urine WBC (Auto) Urine Creatinine Crossmatch 05/08/16 05/08/16 05/08/16 04:04 05:39 12:09 WBC RBC Hgb Hct MCV MCH MCHC RDW Plt Count Lymph % (Auto) [place] % (Auto) Lymph # [place] # Baso # Seg Neutrophils % Seg Neuts % (Manual) Lymphocytes % (Manual) Monocytes % (Manual) Seg Neutrophils # Seg Neutrophils # Man Lymphocytes # (Manual) Monocytes # (Manual) Basophils # (Manual) Percent Retic PT INR APTT Heparin Anti-Xa Level 0.20 L POC ABG pH POC ABG pCO2 POC ABG pO2 Sodium Potassium Chloride Carbon Dioxide BUN Creatinine Glucose POC Glucose 153 H 188 H Calcium Phosphorus Iron TIBC Lactate Dehydrogenase Total Creatine Kinase NT-Pro-B Natriuret Pep Total Protein Albumin Pxgiv-9-Lkxaznjpm Pwxwa-3-Xnlrxnncp Beta Globulins PEP Interpretation Cholesterol LDL Cholesterol Direct Vitamin B12 Urine WBC (Auto) Urine Creatinine Crossmatch 05/08/16 05/08/16 05/08/16 17:44 17:49 18:51 WBC RBC Hgb Hct MCV MCH MCHC RDW Plt Count Lymph % (Auto) [place] % (Auto) Lymph # [place] # Baso # Seg Neutrophils % Seg Neuts % (Manual) Lymphocytes % (Manual) Monocytes % (Manual) Seg Neutrophils # Seg Neutrophils # Man Lymphocytes # (Manual) Monocytes # (Manual) Basophils # (Manual) Percent Retic PT INR APTT Heparin Anti-Xa Level POC ABG pH POC ABG pCO2 POC ABG pO2 Sodium Potassium Chloride Carbon Dioxide BUN Creatinine Glucose POC Glucose 56 L 61 L 135 H Calcium Phosphorus Iron TIBC Lactate Dehydrogenase Total Creatine Kinase NT-Pro-B Natriuret Pep Total Protein Albumin Zbxdp-7-Powugkdwx Ncxxd-0-Mucrttxho Beta Globulins PEP Interpretation Cholesterol LDL Cholesterol Direct Vitamin B12 Urine WBC (Auto) Urine Creatinine Crossmatch 05/09/16 05/09/16 05/09/16 00:14 04:07 05:18 WBC RBC Hgb Hct MCV MCH MCHC RDW Plt Count Lymph % (Auto) [place] % (Auto) Lymph # [place] # Baso # Seg Neutrophils % Seg Neuts % (Manual) Lymphocytes % (Manual) Monocytes % (Manual) Seg Neutrophils # Seg Neutrophils # Man Lymphocytes # (Manual) Monocytes # (Manual) Basophils # (Manual) Percent Retic PT INR APTT Heparin Anti-Xa Level 0.21 L POC ABG pH POC ABG pCO2 POC ABG pO2 Sodium Potassium Chloride Carbon Dioxide BUN Creatinine Glucose POC Glucose 151 H 215 H Calcium Phosphorus Iron TIBC Lactate Dehydrogenase Total Creatine Kinase NT-Pro-B Natriuret Pep Total Protein Albumin Eqnuj-9-Ezgmlqlww Cslgx-8-Ltqquklkx Beta Globulins PEP Interpretation Cholesterol LDL Cholesterol Direct Vitamin B12 Urine WBC (Auto) Urine Creatinine Crossmatch 05/09/16 05/09/16 05/09/16 12:27 16:39 17:30 WBC RBC Hgb 6.4 L Hct 20.2 L MCV MCH MCHC RDW Plt Count Lymph % (Auto) [place] % (Auto) Lymph # [place] # Baso # Seg Neutrophils % Seg Neuts % (Manual) Lymphocytes % (Manual) Monocytes % (Manual) Seg Neutrophils # Seg Neutrophils # Man Lymphocytes # (Manual) Monocytes # (Manual) Basophils # (Manual) Percent Retic PT INR APTT Heparin Anti-Xa Level POC ABG pH POC ABG pCO2 POC ABG pO2 Sodium Potassium Chloride Carbon Dioxide BUN Creatinine Glucose POC Glucose 291 H 220 H Calcium Phosphorus Iron TIBC Lactate Dehydrogenase Total Creatine Kinase NT-Pro-B Natriuret Pep Total Protein Albumin Rnuhk-2-Anlzxebbb Vshkw-8-Vzynbgaui Beta Globulins PEP Interpretation Cholesterol LDL Cholesterol Direct Vitamin B12 Urine WBC (Auto) Urine Creatinine Crossmatch 05/09/16 05/09/16 05/10/16 19:47 23:57 03:55 WBC 16.9 H RBC 3.20 L Hgb 8.6 L Hct 26.7 L D MCV 83 L MCH 27 L MCHC RDW 17.5 H Plt Count 488 H Lymph % (Auto) [place] % (Auto) Lymph # [place] # Baso # Seg Neutrophils % Seg Neuts % (Manual) 76.0 H Lymphocytes % (Manual) 9.0 L Monocytes % (Manual) 10.0 H Seg Neutrophils # Seg Neutrophils # Man 12.8 H Lymphocytes # (Manual) Monocytes # (Manual) 1.7 H Basophils # (Manual) Percent Retic PT INR APTT Heparin Anti-Xa Level POC ABG pH POC ABG pCO2 POC ABG pO2 Sodium Potassium Chloride Carbon Dioxide BUN Creatinine Glucose POC Glucose 217 H Calcium Phosphorus Iron TIBC Lactate Dehydrogenase Total Creatine Kinase NT-Pro-B Natriuret Pep Total Protein Albumin Rmcio-2-Xvldwtuxk Vrmlq-9-Euawpdvkg Beta Globulins PEP Interpretation Cholesterol LDL Cholesterol Direct Vitamin B12 Urine WBC (Auto) Urine Creatinine Crossmatch See Detail 05/10/16 05/10/16 05/10/16 05:05 11:49 12:54 WBC RBC Hgb 9.1 L Hct 28.2 L MCV MCH MCHC RDW Plt Count Lymph % (Auto) [place] % (Auto) Lymph # [place] # Baso # Seg Neutrophils % Seg Neuts % (Manual) Lymphocytes % (Manual) Monocytes % (Manual) Seg Neutrophils # Seg Neutrophils # Man Lymphocytes # (Manual) Monocytes # (Manual) Basophils # (Manual) Percent Retic PT INR APTT Heparin Anti-Xa Level POC ABG pH POC ABG pCO2 POC ABG pO2 Sodium Potassium Chloride Carbon Dioxide BUN Creatinine Glucose POC Glucose 182 H 237 H Calcium Phosphorus Iron TIBC Lactate Dehydrogenase Total Creatine Kinase NT-Pro-B Natriuret Pep Total Protein Albumin [place]iw-8-Jhbotfvxf Lcest-8-Pxoraxbfl Beta Globulins PEP Interpretation Cholesterol LDL Cholesterol Direct Vitamin B12 Urine WBC (Auto) Urine Creatinine Crossmatch 05/10/16 05/10/16 05/10/16 12:54 17:29 23:07 WBC RBC Hgb Hct MCV MCH MCHC RDW Plt Count Lymph % (Auto) [place] % (Auto) Lymph # [place] # Baso # Seg Neutrophils % Seg Neuts % (Manual) Lymphocytes % (Manual) Monocytes % (Manual) Seg Neutrophils # Seg Neutrophils # Man Lymphocytes # (Manual) Monocytes # (Manual) Basophils # (Manual) Percent Retic PT INR 1.14 H APTT Heparin Anti-Xa Level POC ABG pH POC ABG pCO2 POC ABG pO2 Sodium Potassium Chloride Carbon Dioxide BUN Creatinine Glucose POC Glucose 198 H 172 H Calcium Phosphorus Iron TIBC Lactate Dehydrogenase Total Creatine Kinase NT-Pro-B Natriuret Pep Total Protein Albumin [place]-0-Idjinjvcn Sfasz-1-Hbvrxqwbg Beta Globulins PEP Interpretation Cholesterol LDL Cholesterol Direct Vitamin B12 Urine WBC (Auto) Urine Creatinine Crossmatch 05/11/16 05/11/16 05/11/16 04:16 04:16 05:13 WBC 16.1 H RBC 3.27 L Hgb 8.8 L Hct 27.7 L MCV MCH 27 L MCHC RDW 17.9 H Plt Count 475 H Lymph % (Auto) 8.9 L [place] % (Auto) 8.0 H Lymph # [place] # 1.3 H Baso # Seg Neutrophils % 81.6 H Seg Neuts % (Manual) Lymphocytes % (Manual) Monocytes % (Manual) Seg Neutrophils # 13.1 H Seg Neutrophils # Man Lymphocytes # (Manual) Monocytes # (Manual) Basophils # (Manual) Percent Retic PT INR APTT Heparin Anti-Xa Level POC ABG pH POC ABG pCO2 POC ABG pO2 Sodium 152 H Potassium Chloride 114.2 H Carbon Dioxide BUN 23 H Creatinine 0.6 L Glucose 166 H POC Glucose 173 H Calcium 8.0 L Phosphorus Iron TIBC Lactate Dehydrogenase Total Creatine Kinase NT-Pro-B Natriuret Pep Total Protein Albumin Yrowp-8-Nzyqoqwuz Gymez-8-Evnlzoffv Beta Globulins PEP Interpretation Cholesterol LDL Cholesterol Direct Vitamin B12 Urine WBC (Auto) Urine Creatinine Crossmatch 05/11/16 05/11/16 05/11/16 11:30 17:20 23:53 WBC RBC Hgb Hct MCV MCH MCHC RDW Plt Count Lymph % (Auto) [place] % (Auto) Lymph # [place] # Baso # Seg Neutrophils % Seg Neuts % (Manual) Lymphocytes % (Manual) Monocytes % (Manual) Seg Neutrophils # Seg Neutrophils # Man Lymphocytes # (Manual) Monocytes # (Manual) Basophils # (Manual) Percent Retic PT INR APTT Heparin Anti-Xa Level POC ABG pH POC ABG pCO2 POC ABG pO2 Sodium Potassium Chloride Carbon Dioxide BUN Creatinine Glucose POC Glucose 192 H 147 H 164 H Calcium Phosphorus Iron TIBC Lactate Dehydrogenase Total Creatine Kinase NT-Pro-B Natriuret Pep Total Protein Albumin Xwoke-0-Vhaolnwxt Vgsmw-7-Kirofnsrj Beta Globulins PEP Interpretation Cholesterol LDL Cholesterol Direct Vitamin B12 Urine WBC (Auto) Urine Creatinine Crossmatch 05/12/16 05/12/16 05/12/16 05:35 07:33 11:01 WBC RBC Hgb 9.2 L Hct 29.2 L MCV MCH MCHC RDW Plt Count 503 H Lymph % (Auto) [place] % (Auto) Lymph # [place] # Baso # Seg Neutrophils % Seg Neuts % (Manual) Lymphocytes % (Manual) Monocytes % (Manual) Seg Neutrophils # Seg Neutrophils # Man Lymphocytes # (Manual) Monocytes # (Manual) Basophils # (Manual) Percent Retic PT INR APTT Heparin Anti-Xa Level POC ABG pH POC ABG pCO2 POC ABG pO2 Sodium 148 H Potassium Chloride 108.5 H Carbon Dioxide BUN Creatinine 0.5 L Glucose 146 H POC Glucose 145 H Calcium 8.2 L Phosphorus Iron TIBC Lactate Dehydrogenase Total Creatine Kinase NT-Pro-B Natriuret Pep Total Protein Albumin Dbohm-9-Tukodxxlh Rdrpr-6-Ukqteepbm Beta Globulins PEP Interpretation Cholesterol LDL Cholesterol Direct Vitamin B12 Urine WBC (Auto) Urine Creatinine Crossmatch Chest x-ray: report reviewed, image reviewed
--- NOTE | 2016-05-12 13:02 | Progress Note ---
Assessment and Plan Assessment and plan: 1. Acute respiratory failure. Patient reintubated on 04/17/16. Continue mechanical ventilation per pulmonary. Tracheostomy on 04/29/16. Continue CPAP trials 2. Acute CVA. CT scan revealed acute ischemic infarct in the right cerebellum. MRI reveals subacute infarct in the right cerebellar hemisphere with associated edema and mass effect as previously described. Patient also with multiple areas of acute infarct in the left occipital and frontal lobes that are most likely embolic. LIZZIE done- No thrombus but decreased flow. Cardiology recommends anticoagulation with Coumadin. 3. Hypotension. Resolved. Patient currently off pressors of Levophed. Echocardiogram revealed EF of 50-55%. 4. Encephalopathy. EEG normal. Etiology likely secondary to CVA +/- hypertension. 5. Group B strep UTI-treated 6. Accelerated hypertension. Continue antihypertensive medications 7. CAD-stable 8. Seizures-continue Keppra. EEG normal. 9. Type 2 diabetes mellitus. Glycemic control. 10. History of aortic dissection status post repair. 11. History of prosthetic aortic valve replacement. Echo with normal function on 08/2015. 12. DVT prophylaxis-on heparin drip. 13. GI prophylaxis-Pepcid 14. Oropharyngeal dysphagia. Patient failed swallow evaluation. Status post PEG placement on 04/17. 15. Anemia. Monitor H&H closely. The high probability of a clinically significant, sudden or life threatening deterioration of the [respiratory and neurological] system(s) required my full and direct attention, intervention and personal management. The aggregate critical care time was [31] minutes. This time is in addition to time spent performing reported procedures but includes the following: [x] Data Review and interpretation [x] Patient assessment and monitoring of vital signs [x] Documentation [x] Medication orders and management History Interval history: 60 years old -[place] male with nonobstructive CAD per recent CAD, hypertension, hyperlipidemia, bioprosthetic aortic valve replacement, chronic kidney disease, diabetes and seizure disorder who was initially admitted for metabolic encephalopathy with hypernatremia. Patient developed respiratory failure during this hospitalization on 03/27 and was intubated placed on mechanical ventilation. Patient was later extubated during his hospitalization but was reintubated on the evening of 04/16/16. Patient now remains intubated on mechanical ventilation. Patient is also status post PEG tube placement on . Patient remains on mechanical ventilation. Patient status post tracheostomy on 04/29/16. Hospitalist Physical - Constitutional Vitals: Temp Pulse Resp BP Pulse Ox 98.1 F 85 21 143/86 95 05/12/16 08:00 05/12/16 12:14 05/12/16 11:00 05/12/16 12:14 05/12/16 12:14 General appearance: Present: no acute distress, other (tracheostomy) - EENT Eyes: Present: PERRL, EOM intact ENT: hearing intact, clear oral mucosa, dentition normal - Neck Neck: Present: supple, normal ROM - Respiratory Respiratory effort: normal Respiratory: bilateral: diminished, rhonchi - Cardiovascular Rhythm: regular Heart Sounds: Present: S1 & S2. Absent: gallop, rub - Extremities Extremities: no ischemia, No edema, Full ROM - Abdominal General gastrointestinal: soft, non-tender, non-distended, normal bowel sounds - Integumentary Integumentary: Present: clear, warm, dry - Neurologic Neurologic: CNII-XII intact, moves all extremities Results - Labs CBC & Chem 7: 05/12/16 11:01 05/12/16 07:33 Labs: Laboratory Last Values WBC 16.1 K/mm3 (4.5-11.0) H 05/11/16 04:16 RBC 3.27 M/mm3 (3.65-5.03) L 05/11/16 04:16 Hgb 9.2 gm/dl (11.8-15.2) L 05/12/16 11:01 Hct 29.2 % (35.5-45.6) L 05/12/16 11:01 MCV 85 fl (84-94) 05/11/16 04:16 MCH 27 pg (28-32) L 05/11/16 04:16 MCHC 32 % (32-34) 05/11/16 04:16 RDW 17.9 % (13.2-15.2) H 05/11/16 04:16 Plt Count 503 K/mm3 (140-440) H 05/12/16 11:01 Lymph % (Auto) 8.9 % (13.4-35.0) L 05/11/16 04:16 [place] % (Auto) 8.0 % (0.0-7.3) H 05/11/16 04:16 Eos % (Auto) 1.2 % (0.0-4.3) 05/11/16 04:16 Baso % (Auto) 0.3 % (0.0-1.8) 05/11/16 04:16 Lymph # 1.4 K/mm3 (1.2-5.4) 05/11/16 04:16 [place] # 1.3 K/mm3 (0.0-0.8) H 05/11/16 04:16 Eos # 0.2 K/mm3 (0.0-0.4) 05/11/16 04:16 Baso # 0.1 K/mm3 (0.0-0.1) 05/11/16 04:16 Add Manual Diff Complete 05/10/16 03:55 Total Counted 100 05/10/16 03:55 Seg Neutrophils % 81.6 % (40.0-70.0) H 05/11/16 04:16 Seg Neuts % (Manual) 76.0 % (40.0-70.0) H 05/10/16 03:55 Band Neutrophils % 5.0 % 05/10/16 03:55 Lymphocytes % (Manual) 9.0 % (13.4-35.0) L 05/10/16 03:55 Reactive Lymphs % (Man) 0 % 05/10/16 03:55 Monocytes % (Manual) 10.0 % (0.0-7.3) H 05/10/16 03:55 Eosinophils % (Manual) 0 % (0.0-4.3) 05/10/16 03:55 Basophils % (Manual) 0 % (0.0-1.8) 05/10/16 03:55 Metamyelocytes % 0 % 05/10/16 03:55 Myelocytes % 0 % 05/10/16 03:55 Promyelocytes % 0 % 05/10/16 03:55 Blast Cells % 0 % 05/10/16 03:55 Nucleated RBC % Not Reportable 05/10/16 03:55 Seg Neutrophils # 13.1 K/mm3 (1.8-7.7) H 05/11/16 04:16 Seg Neutrophils # Man 12.8 K/mm3 (1.8-7.7) H 05/10/16 03:55 Band Neutrophils # 0.8 K/mm3 05/10/16 03:55 Lymphocytes # (Manual) 1.5 K/mm3 (1.2-5.4) 05/10/16 03:55 Abs React Lymphs (Man) 0.0 K/mm3 05/10/16 03:55 Monocytes # (Manual) 1.7 K/mm3 (0.0-0.8) H 05/10/16 03:55 Eosinophils # (Manual) 0.0 K/mm3 (0.0-0.4) 05/10/16 03:55 Basophils # (Manual) 0.0 K/mm3 (0.0-0.1) 05/10/16 03:55 Metamyelocytes # 0.0 K/mm3 05/10/16 03:55 Myelocytes # 0.0 K/mm3 05/10/16 03:55 Promyelocytes # 0.0 K/mm3 05/10/16 03:55 Blast Cells # 0.0 K/mm3 05/10/16 03:55 WBC Morphology Not Reportable 05/10/16 03:55 Hypersegmented Neuts Not Reportable 05/10/16 03:55 Hyposegmented Neuts Not Reportable 05/10/16 03:55 Hypogranular Neuts Not Reportable 05/10/16 03:55 Smudge Cells Not Reportable 05/10/16 03:55 Toxic Granulation Not Reportable 05/10/16 03:55 Toxic Vacuolation Not Reportable 05/10/16 03:55 Dohle Bodies Not Reportable 05/10/16 03:55 Pelger-Huet Anomaly Not Reportable 05/10/16 03:55 Corina Rods Not Reportable 05/10/16 03:55 Platelet Estimate Consistent w auto 05/10/16 03:55 Clumped Platelets Not Reportable 05/10/16 03:55 Plt Clumps, EDTA Not Reportable 05/10/16 03:55 Large Platelets Not Reportable 05/10/16 03:55 Giant Platelets Not Reportable 05/10/16 03:55 Platelet Satelliting Not Reportable 05/10/16 03:55 Plt Morphology Comment Not Reportable 05/10/16 03:55 RBC Morphology Not Reportable 05/10/16 03:55 Dimorphic RBCs Not Reportable 05/10/16 03:55 Polychromasia Rare 05/10/16 03:55 Hypochromasia Rare 05/10/16 03:55 Poikilocytosis Not Reportable 05/10/16 03:55 Anisocytosis 1+ 05/10/16 03:55 Microcytosis Not Reportable 05/10/16 03:55 Macrocytosis Not Reportable 05/10/16 03:55 Spherocytes Not Reportable 05/10/16 03:55 Pappenheimer Bodies Not Reportable 05/10/16 03:55 Sickle Cells Not Reportable 05/10/16 03:55 Target Cells Not Reportable 05/10/16 03:55 Tear Drop Cells Not Reportable 05/10/16 03:55 Ovalocytes Not Reportable 05/10/16 03:55 Helmet Cells Not Reportable 05/10/16 03:55 [place] Bodies Not Reportable 05/10/16 03:55 [place] Rings Not Reportable 05/10/16 03:55 Tuan Cells Not Reportable 05/10/16 03:55 Bite Cells Not Reportable 05/10/16 03:55 Crenated Cell Not Reportable 05/10/16 03:55 Elliptocytes Not Reportable 05/10/16 03:55 Acanthocytes (Spur) Not Reportable 05/10/16 03:55 Rouleaux Not Reportable 05/10/16 03:55 Hemoglobin C Crystals Not Reportable 05/10/16 03:55 Schistocytes Not Reportable 05/10/16 03:55 Malaria parasites Not Reportable 05/10/16 03:55 Percent Retic 3.68 % (0.78-2.58) H 04/29/16 10:16 Gideon Bodies Not Reportable 05/10/16 03:55 Hem Pathologist Commnt No 05/10/16 03:55 PT 13.8 Sec. (12.2-14.9) 05/12/16 11:01 INR 1.07 (0.87-1.13) 05/12/16 11:01 APTT 27.2 Sec. (24.2-36.6) 05/12/16 11:01 Heparin Anti-Xa Level 0.21 U.I./ml (0.3-0.7) L 05/09/16 04:07 POC ABG pH 7.511 (7.35-7.45) H 05/06/16 05:30 POC ABG pCO2 36.2 (35-45) 05/06/16 05:30 POC ABG pO2 92 (80-105) 05/06/16 05:30 POC ABG HCO3 28.9 05/06/16 05:30 POC ABG Total CO2 30 05/06/16 05:30 POC ABG O2 Sat 98 05/06/16 05:30 POC ABG Base Excess 6 05/06/16 05:30 VBG pH 7.418 (7.320-7.420) 03/24/16 14:00 FiO2 25 % 05/06/16 05:30 Sodium 148 mmol/L (137-145) H 05/12/16 07:33 Potassium 4.4 mmol/L (3.6-5.0) 05/12/16 07:33 Chloride 108.5 mmol/L (98-107) H 05/12/16 07:33 Carbon Dioxide 23 mmol/L (22-30) 05/12/16 07:33 Anion Gap 15 mmol/L 05/11/16 04:16 BUN 20 mg/dL (9-20) 05/12/16 07:33 Creatinine 0.5 mg/dL (0.8-1.5) L 05/12/16 07:33 Estimated GFR > 60 ml/min 05/12/16 07:33 BUN/Creatinine Ratio 40.00 % 05/12/16 07:33 Glucose 146 mg/dL (75-100) H 05/12/16 07:33 POC Glucose 145 (70-105) H 05/12/16 05:35 Hemoglobin A1c 9.6 % (4-6) H 03/24/16 14:00 Lactic Acid 1.6 mmol/L (0.7-2.0) 04/17/16 12:17 Calcium 8.2 mg/dL (8.4-10.2) L 05/12/16 07:33 Phosphorus 3.1 mg/dL (2.5-4.5) 05/11/16 04:16 Magnesium 2.3 mg/dL (1.7-2.3) 05/11/16 04:16 Iron 10 ug/dL (49-181) L 04/29/16 10:16 TIBC 138 mcg/dL (250-450) L 04/29/16 10:16 Ferritin 336.4 ng/mL (13.0-400.0) 04/29/16 10:16 Total Bilirubin < 0.2 mg/dL (0.1-1.2) 04/27/16 04:21 AST 18 units/L (5-40) 04/27/16 04:21 ALT 39 units/L (7-56) 04/27/16 04:21 Alkaline Phosphatase 103 units/L (35-129) 04/27/16 04:21 Lactate Dehydrogenase 204 units/L (91-180) H 04/29/16 10:16 Total Creatine Kinase 356 units/L (55-170) H 03/28/16 13:29 Troponin T < 0.010 ng/mL (0.00-0.029) 03/28/16 13:29 NT-Pro-B Natriuret Pep 897.9 pg/mL (0-900) 04/03/16 04:10 Serum Total Protein 7.1 g/dL (6.1-8.1) 03/25/16 13:00 Total Protein 6.0 g/dL (6.3-8.2) L 04/27/16 04:21 Albumin 2.0 g/dL (3.9-5) L 04/27/16 04:21 Albumin/Globulin Ratio 0.5 % 04/27/16 04:21 Ompux-5-Idiqcmtbt See scanned report 03/31/16 12:20 Qezpf-1-Avswrfqwh See scanned report 03/31/16 12:20 Beta Globulins See scanned report 03/31/16 12:20 Ygbh-7-Dnxlbszqpxwyf 2.46 mg/L (<=2.51) 03/25/16 13:00 Gamma Globulins See scanned report 03/31/16 12:20 Abnorm Protein Band 1 see below (()) 03/25/16 13:00 PEP Interpretation See scanned report 03/31/16 12:20 Triglycerides 88 mg/dL (2-149) 03/24/16 17:58 Cholesterol 221 mg/dL (50-199) H 03/24/16 17:58 LDL Cholesterol Direct 146 mg/dL (50-130) H 03/24/16 17:58 HDL Cholesterol 58 mg/dL (40-59) 03/24/16 17:58 Cholesterol/HDL Ratio 3.81 % 03/24/16 17:58 Vitamin B12 1005 pg/mL (211-911) H 04/29/16 10:16 Folate 12.78 ng/mL (7.3-26.0) 04/29/16 10:16 Urine Color Yellow (Yellow) 05/04/16 10:20 Urine Turbidity Cloudy (Clear) 05/04/16 10:20 Urine pH 5.0 (5.0-7.0) 05/04/16 10:20 Ur Specific [place] 1.017 (1.003-1.030) 05/04/16 10:20 Urine Protein 100 mg/dl mg/dL (Negative) 05/04/16 10:20 Urine Glucose (UA) >=500 mg/dL (Negative) 05/04/16 10:20 Urine Ketones Neg mg/dL (Negative) 05/04/16 10:20 Urine Blood Sm (Negative) 05/04/16 10:20 Urine Nitrite Neg (Negative) 05/04/16 10:20 Urine Bilirubin Neg (Negative) 05/04/16 10:20 Urine Urobilinogen 2.0 mg/dL (<2.0) 05/04/16 10:20 Ur Leukocyte Esterase Lg (Negative) 05/04/16 10:20 Urine WBC (Auto) > 182.0 /HPF (0.0-6.0) H 05/04/16 10:20 Urine RBC (Auto) 13.0 /HPF (0.0-6.0) 05/04/16 10:20 U Epithel Cells (Auto) < 1.0 /HPF (0-13.0) 05/04/16 10:20 Urine Bacteria (Auto) 1+ /HPF (Negative) 05/04/16 10:20 Urine WBC Clumps 3+ /HPF 05/04/16 10:20 Hyaline Casts 1 /LPF 03/24/16 14:27 Urine Mucus Few /HPF 05/04/16 10:20 Urine Yeast (Budding) 1+ /HPF 05/04/16 10:20 Ur Random Creatinine See scanned report 03/31/16 12:20 U Random Total Protein See scanned report 03/31/16 12:20 Urine Creatinine 85.5 mg/dL (0.1-20.0) H 04/20/16 11:50 Protein/Creatinin Ratio See scanned report 03/31/16 12:20 Urine Sodium 17 mEq/L 04/20/16 11:50 U Abnormal Prot Band 1 See scanned report 03/31/16 12:20 U Abnormal Prot Band 2 See scanned report 03/31/16 12:20 U Abnormal Prot Band 3 See scanned report 03/31/16 12:20 Ketones 1.0 mg/dL (0.2-2.8) 03/24/16 14:00 Blood Type A POSITIVE 05/09/16 19:47 Antibody Screen Negative 05/09/16 19:47 Crossmatch See Detail 05/09/16 19:47
[2016-05-13] MEDS: DUONEB 0.5 MG-3 MG/3 ML SOLN IH SCH ×4 (02:50→20:38)
[2016-05-13 05:29] LABS: Mean Corpuscular HGB Conc 31 % (32-34); Mean Corpuscular Hemoglobin 28 pg (28-32); Mean Corpuscular Volume 89 fl (84-94); Platelet Count 467 K/mm3 (140-440); Red Blood Count 3.26 M/mm3 (3.65-5.03); Red Cell Distribution Width 18.3 % (13.2-15.2); White Blood Count 18.1 K/mm3 (4.5-11.0)
[2016-05-13] MEDS: ZOSYN/NS 4.5GM/100ML 100 ML IV SCH ×4 (05:35→23:19)
[2016-05-13 06:14] LABS: Anisocytosis 1+; Blastocytes % (Manual) 0 %; Macrocytosis Rare; Polychromasia Rare
[2016-05-13 06:15] LABS: Diff Status Complete; Platelet Estimate Consistent w Auto
[2016-05-13 07:43] LABS: Anion Gap 16 mmol/L; Blood Urea Nitrogen 18 mg/dL (9-20); Calcium 8.1 mg/dL (8.4-10.2); Carbon Dioxide 24 mmol/L (22-30); Chloride 109.1 mmol/L (98-107); Glucose 131 mg/dL (75-100); Potassium 4.2 mmol/L (3.6-5.0); Sodium 145 mmol/L (137-145)
[2016-05-13] MEDS: NORMODYNE PO SCH ×3 (08:52→23:01)
[2016-05-13] MEDS: LEVEMIR SUB-Q SCH (09:01)
[2016-05-13] MEDS: NORVASC PO SCH (09:02)
[2016-05-13] MEDS: KEPPRA PO SCH ×2 (09:02→22:55)
[2016-05-13] MEDS: CORDARONE PO SCH (09:03)
[2016-05-13] MEDS: PEPCID PO SCH ×2 (09:03→22:55)
[2016-05-13] MEDS: ZESTRIL PO SCH ×2 (09:05→22:55)
--- NOTE | 2016-05-13 10:51 | Progress Note ---
Assessment and Plan Assessment and plan: 1. Acute respiratory failure. Patient reintubated on 04/17/16. Continue mechanical ventilation per pulmonary. Tracheostomy on 04/29/16. Continue CPAP trials 2. Acute CVA. CT scan revealed acute ischemic infarct in the right cerebellum. MRI reveals subacute infarct in the right cerebellar hemisphere with associated edema and mass effect as previously described. Patient also with multiple areas of acute infarct in the left occipital and frontal lobes that are most likely embolic. LIZZIE done- No thrombus but decreased flow. Cardiology recommends anticoagulation with Coumadin. 3. Hypotension. Resolved. Patient currently off pressors. Echocardiogram revealed EF of 50-55%. 4. Encephalopathy. EEG normal. Etiology likely secondary to CVA +/- hypertension. 5. Group B strep UTI-treated 6. Accelerated hypertension. Continue antihypertensive medications 7. CAD-stable 8. Seizures-continue Keppra. EEG normal. 9. Type 2 diabetes mellitus. Glycemic control. 10. History of aortic dissection status post repair. 11. History of prosthetic aortic valve replacement. Echo with normal function on 08/2015. Heparin resumed. 12. DVT prophylaxis. Heparin drip resume. 13. GI prophylaxis-Pepcid 14. Oropharyngeal dysphagia. Patient failed swallow evaluation. Status post PEG placement on 04/17. 15. Anemia. Monitor H&H closely. 16. Hypernatremia. Resolved. Continue free water. The high probability of a clinically significant, sudden or life threatening deterioration of the [respiratory and neurological] system(s) required my full and direct attention, intervention and personal management. The aggregate critical care time was [31] minutes. This time is in addition to time spent performing reported procedures but includes the following: [x] Data Review and interpretation [x] Patient assessment and monitoring of vital signs [x] Documentation [x] Medication orders and management History Interval history: 60 years old -[place] male with nonobstructive CAD per recent CAD, hypertension, hyperlipidemia, bioprosthetic aortic valve replacement, chronic kidney disease, diabetes and seizure disorder who was initially admitted for metabolic encephalopathy with hypernatremia. Patient developed respiratory failure during this hospitalization on 03/27 and was intubated placed on mechanical ventilation. Patient was later extubated during his hospitalization but was reintubated on the evening of 04/16/16. Patient now remains intubated on mechanical ventilation. Patient is also status post PEG tube placement on . Patient remains on mechanical ventilation. Patient status post tracheostomy on 04/29/16. Hospitalist Physical - Constitutional Vitals: Temp Pulse Resp BP Pulse Ox 98.5 F 72 17 117/71 100 05/13/16 07:50 05/13/16 10:08 05/13/16 08:00 05/13/16 10:08 05/13/16 10:08 General appearance: Present: no acute distress, other (tracheostomy) - EENT Eyes: Present: PERRL, EOM intact ENT: hearing intact, clear oral mucosa, dentition normal - Neck Neck: Present: supple, normal ROM - Respiratory Respiratory effort: normal Respiratory: bilateral: diminished, rhonchi - Cardiovascular Rhythm: regular Heart Sounds: Present: S1 & S2. Absent: gallop, rub - Extremities Extremities: no ischemia, No edema, Full ROM - Abdominal General gastrointestinal: soft, non-tender, non-distended, normal bowel sounds - Integumentary Integumentary: Present: clear, warm, dry - Neurologic Neurologic: CNII-XII intact, moves all extremities Results - Labs CBC & Chem 7: 05/13/16 04:45 05/13/16 07:04 Labs: Laboratory Last Values WBC 18.1 K/mm3 (4.5-11.0) H 05/13/16 04:45 RBC 3.26 M/mm3 (3.65-5.03) L 05/13/16 04:45 Hgb 9.0 gm/dl (11.8-15.2) L 05/13/16 04:45 Hct 29.0 % (35.5-45.6) L 05/13/16 04:45 MCV 89 fl (84-94) D 05/13/16 04:45 MCH 28 pg (28-32) 05/13/16 04:45 MCHC 31 % (32-34) L 05/13/16 04:45 RDW 18.3 % (13.2-15.2) H 05/13/16 04:45 Plt Count 467 K/mm3 (140-440) H 05/13/16 04:45 Lymph % (Auto) Textile Examiner 05/13/16 04:45 [place] % (Auto) Textile Examiner 05/13/16 04:45 Eos % (Auto) Textile Examiner 05/13/16 04:45 Baso % (Auto) Textile Examiner 05/13/16 04:45 Lymph # Textile Examiner 05/13/16 04:45 [place] # Textile Examiner 05/13/16 04:45 Eos # Textile Examiner 05/13/16 04:45 Baso # Textile Examiner 05/13/16 04:45 Add Manual Diff Complete 05/13/16 04:45 Total Counted 100 05/13/16 04:45 Seg Neutrophils % Textile Examiner 05/13/16 04:45 Seg Neuts % (Manual) 76.0 % (40.0-70.0) H 05/13/16 04:45 Band Neutrophils % 3.0 % 05/13/16 04:45 Lymphocytes % (Manual) 11.0 % (13.4-35.0) L 05/13/16 04:45 Reactive Lymphs % (Man) 0 % 05/13/16 04:45 Monocytes % (Manual) 8.0 % (0.0-7.3) H 05/13/16 04:45 Eosinophils % (Manual) 1.0 % (0.0-4.3) 05/13/16 04:45 Basophils % (Manual) 1.0 % (0.0-1.8) 05/13/16 04:45 Metamyelocytes % 0 % 05/13/16 04:45 Myelocytes % 0 % 05/13/16 04:45 Promyelocytes % 0 % 05/13/16 04:45 Blast Cells % 0 % 05/13/16 04:45 Nucleated RBC % Not Reportable 05/13/16 04:45 Seg Neutrophils # Textile Examiner 05/13/16 04:45 Seg Neutrophils # Man 13.8 K/mm3 (1.8-7.7) H 05/13/16 04:45 Band Neutrophils # 0.5 K/mm3 05/13/16 04:45 Lymphocytes # (Manual) 2.0 K/mm3 (1.2-5.4) 05/13/16 04:45 Abs React Lymphs (Man) 0.0 K/mm3 05/13/16 04:45 Monocytes # (Manual) 1.4 K/mm3 (0.0-0.8) H 05/13/16 04:45 Eosinophils # (Manual) 0.2 K/mm3 (0.0-0.4) 05/13/16 04:45 Basophils # (Manual) 0.2 K/mm3 (0.0-0.1) H 05/13/16 04:45 Metamyelocytes # 0.0 K/mm3 05/13/16 04:45 Myelocytes # 0.0 K/mm3 05/13/16 04:45 Promyelocytes # 0.0 K/mm3 05/13/16 04:45 Blast Cells # 0.0 K/mm3 05/13/16 04:45 WBC Morphology Not Reportable 05/13/16 04:45 Hypersegmented Neuts Not Reportable 05/13/16 04:45 Hyposegmented Neuts Not Reportable 05/13/16 04:45 Hypogranular Neuts Not Reportable 05/13/16 04:45 Smudge Cells Not Reportable 05/13/16 04:45 Toxic Granulation Not Reportable 05/13/16 04:45 Toxic Vacuolation Not Reportable 05/13/16 04:45 Dohle Bodies Not Reportable 05/13/16 04:45 Pelger-Huet Anomaly Not Reportable 05/13/16 04:45 Corina Rods Not Reportable 05/13/16 04:45 Platelet Estimate Consistent w auto 05/13/16 04:45 Clumped Platelets Not Reportable 05/13/16 04:45 Plt Clumps, EDTA Not Reportable 05/13/16 04:45 Large Platelets Not Reportable 05/13/16 04:45 Giant Platelets Not Reportable 05/13/16 04:45 Platelet Satelliting Not Reportable 05/13/16 04:45 Plt Morphology Comment Not Reportable 05/13/16 04:45 RBC Morphology Not Reportable 05/13/16 04:45 Dimorphic RBCs Not Reportable 05/13/16 04:45 Polychromasia Rare 05/13/16 04:45 Hypochromasia Not Reportable 05/13/16 04:45 Poikilocytosis Not Reportable 05/13/16 04:45 Anisocytosis 1+ 05/13/16 04:45 Microcytosis Not Reportable 05/13/16 04:45 Macrocytosis Rare 05/13/16 04:45 Spherocytes Not Reportable 05/13/16 04:45 Pappenheimer Bodies Not Reportable 05/13/16 04:45 Sickle Cells Not Reportable 05/13/16 04:45 Target Cells Not Reportable 05/13/16 04:45 Tear Drop Cells Not Reportable 05/13/16 04:45 Ovalocytes Not Reportable 05/13/16 04:45 Helmet Cells Not Reportable 05/13/16 04:45 Mcgrath-[place] Bodies Not Reportable 05/13/16 04:45 Banner Rings Not Reportable 05/13/16 04:45 Tuan Cells Not Reportable 05/13/16 04:45 Bite Cells Not Reportable 05/13/16 04:45 Crenated Cell Not Reportable 05/13/16 04:45 Elliptocytes Not Reportable 05/13/16 04:45 Acanthocytes (Spur) Not Reportable 05/13/16 04:45 Rouleaux Not Reportable 05/13/16 04:45 Hemoglobin C Crystals Not Reportable 05/13/16 04:45 Schistocytes Not Reportable 05/13/16 04:45 Malaria parasites Not Reportable 05/13/16 04:45 Percent Retic 3.68 % (0.78-2.58) H 04/29/16 10:16 Gideon Bodies Not Reportable 05/13/16 04:45 Hem Pathologist Commnt No 05/13/16 04:45 PT 13.8 Sec. (12.2-14.9) 05/12/16 11:01 INR 1.07 (0.87-1.13) 05/12/16 11:01 APTT 27.2 Sec. (24.2-36.6) 05/12/16 11:01 Heparin Anti-Xa Level 0.25 U.I./ml (0.3-0.7) L 05/13/16 08:13 POC ABG pH 7.511 (7.35-7.45) H 05/06/16 05:30 POC ABG pCO2 36.2 (35-45) 05/06/16 05:30 POC ABG pO2 92 (80-105) 05/06/16 05:30 POC ABG HCO3 28.9 05/06/16 05:30 POC ABG Total CO2 30 05/06/16 05:30 POC ABG O2 Sat 98 05/06/16 05:30 POC ABG Base Excess 6 05/06/16 05:30 VBG pH 7.418 (7.320-7.420) 03/24/16 14:00 FiO2 25 % 05/06/16 05:30 Sodium 145 mmol/L (137-145) 05/13/16 07:04 Potassium 4.2 mmol/L (3.6-5.0) 05/13/16 07:04 Chloride 109.1 mmol/L (98-107) H 05/13/16 07:04 Carbon Dioxide 24 mmol/L (22-30) 05/13/16 07:04 Anion Gap 16 mmol/L 05/13/16 07:04 BUN 18 mg/dL (9-20) 05/13/16 07:04 Creatinine 0.5 mg/dL (0.8-1.5) L 05/13/16 07:04 Estimated GFR > 60 ml/min 05/13/16 07:04 BUN/Creatinine Ratio 36.00 % 05/13/16 07:04 Glucose 131 mg/dL (75-100) H 05/13/16 07:04 POC Glucose 136 (70-105) H 05/13/16 05:43 Hemoglobin A1c 9.6 % (4-6) H 03/24/16 14:00 Lactic Acid 1.6 mmol/L (0.7-2.0) 04/17/16 12:17 Calcium 8.1 mg/dL (8.4-10.2) L 05/13/16 07:04 Phosphorus 3.1 mg/dL (2.5-4.5) 05/11/16 04:16 Magnesium 2.3 mg/dL (1.7-2.3) 05/11/16 04:16 Iron 10 ug/dL (49-181) L 04/29/16 10:16 TIBC 138 mcg/dL (250-450) L 04/29/16 10:16 Ferritin 336.4 ng/mL (13.0-400.0) 04/29/16 10:16 Total Bilirubin < 0.2 mg/dL (0.1-1.2) 04/27/16 04:21 AST 18 units/L (5-40) 04/27/16 04:21 ALT 39 units/L (7-56) 04/27/16 04:21 Alkaline Phosphatase 103 units/L (35-129) 04/27/16 04:21 Lactate Dehydrogenase 204 units/L (91-180) H 04/29/16 10:16 Total Creatine Kinase 356 units/L (55-170) H 03/28/16 13:29 Troponin T < 0.010 ng/mL (0.00-0.029) 03/28/16 13:29 NT-Pro-B Natriuret Pep 897.9 pg/mL (0-900) 04/03/16 04:10 Serum Total Protein 7.1 g/dL (6.1-8.1) 03/25/16 13:00 Total Protein 6.0 g/dL (6.3-8.2) L 04/27/16 04:21 Albumin 2.0 g/dL (3.9-5) L 04/27/16 04:21 Albumin/Globulin Ratio 0.5 % 04/27/16 04:21 [id number]-[id number] See scanned report 03/31/16 12:20 [id number]-[id number] See scanned report 03/31/16 12:20 Beta Globulins See scanned report 03/31/16 12:20 Ujgo-0-Nqqoopgnnvxri 2.46 mg/L (<=2.51) 03/25/16 13:00 Gamma Globulins See scanned report 03/31/16 12:20 Abnorm Protein Band 1 see below (()) 03/25/16 13:00 PEP Interpretation See scanned report 03/31/16 12:20 Triglycerides 88 mg/dL (2-149) 03/24/16 17:58 Cholesterol 221 mg/dL (50-199) H 03/24/16 17:58 LDL Cholesterol Direct 146 mg/dL (50-130) H 03/24/16 17:58 HDL Cholesterol 58 mg/dL (40-59) 03/24/16 17:58 Cholesterol/HDL Ratio 3.81 % 03/24/16 17:58 Vitamin B12 1005 pg/mL (211-911) H 04/29/16 10:16 Folate 12.78 ng/mL (7.3-26.0) 04/29/16 10:16 Urine Color Yellow (Yellow) 05/04/16 10:20 Urine Turbidity Cloudy (Clear) 05/04/16 10:20 Urine pH 5.0 (5.0-7.0) 05/04/16 10:20 Ur Specific Rudy 1.017 (1.003-1.030) 05/04/16 10:20 Urine Protein 100 mg/dl mg/dL (Negative) 05/04/16 10:20 Urine Glucose (UA) >=500 mg/dL (Negative) 05/04/16 10:20 Urine Ketones Neg mg/dL (Negative) 05/04/16 10:20 Urine Blood Sm (Negative) 05/04/16 10:20 Urine Nitrite Neg (Negative) 05/04/16 10:20 Urine Bilirubin Neg (Negative) 05/04/16 10:20 Urine Urobilinogen 2.0 mg/dL (<2.0) 05/04/16 10:20 Ur Leukocyte Esterase Lg (Negative) 05/04/16 10:20 Urine WBC (Auto) > 182.0 /HPF (0.0-6.0) H 05/04/16 10:20 Urine RBC (Auto) 13.0 /HPF (0.0-6.0) 05/04/16 10:20 U Epithel Cells (Auto) < 1.0 /HPF (0-13.0) 05/04/16 10:20 Urine Bacteria (Auto) 1+ /HPF (Negative) 05/04/16 10:20 Urine WBC Clumps 3+ /HPF 05/04/16 10:20 Hyaline Casts 1 /LPF 03/24/16 14:27 Urine Mucus Few /HPF 05/04/16 10:20 Urine Yeast (Budding) 1+ /HPF 05/04/16 10:20 Ur Random Creatinine See scanned report 03/31/16 12:20 U Random Total Protein See scanned report 03/31/16 12:20 Urine Creatinine 85.5 mg/dL (0.1-20.0) H 04/20/16 11:50 Protein/Creatinin Ratio See scanned report 03/31/16 12:20 Urine Sodium 17 mEq/L 04/20/16 11:50 U Abnormal Prot Band 1 See scanned report 03/31/16 12:20 U Abnormal Prot Band 2 See scanned report 03/31/16 12:20 U Abnormal Prot Band 3 See scanned report 03/31/16 12:20 Ketones 1.0 mg/dL (0.2-2.8) 03/24/16 14:00 Blood Type A POSITIVE 05/09/16 19:47 Antibody Screen Negative 05/09/16 19:47 Crossmatch See Detail 05/09/16 19:47
--- NOTE | 2016-05-13 11:23 | Progress Note ---
Addendum entered and electronically signed by MASOOD HAWLEY MD 05/13/16 15:59 : Conservative cardiac management. Original Note: Assessment and Plan Acute respiratory failure requiring re intubation s/p trach no evidence of PE by V\Q scan normal ventricular and atria size, EF 65% on echo this admission. Acute CVA LIZZIE - very dense echo contrast noted in the thoracic aorta consistent with low flow state, severe concentric LVH, normal functioning bioprosthetic aortic valve. On IV heparin. Coumadin on hold Acute drop in anemia requiring blood transfusion Abnormal ECG no significant CAD by [facility] 08/2015 Hx of aortic dissection s/p repair Hx of bioprosthetic aortic valve replacement Hypertension Plan: Conservative cardiac management Subjective Date of service: 05/13/16 Principal diagnosis: CVA, acute respiratory failure Interval history: No interval changes. Sinus rhythm on telemetry. Objective Vital Signs Temp Pulse Pulse Pulse Pulse Pulse Pulse 05/13/16 10:55 76 05/13/16 10:08 72 05/13/16 10:00 72 05/13/16 09:05 80 05/13/16 09:02 80 05/13/16 09:00 79 05/13/16 08:52 83 05/13/16 08:29 80 05/13/16 08:00 78 78 05/13/16 07:50 98.5 F 05/13/16 07:45 84 05/13/16 07:36 05/13/16 07:30 78 05/13/16 07:29 82 05/13/16 07:00 77 05/13/16 06:27 77 05/13/16 06:00 77 05/13/16 05:37 77 05/13/16 05:35 77 05/13/16 05:13 76 05/13/16 05:11 79 05/13/16 05:00 77 05/13/16 04:25 76 05/13/16 04:00 98.8 F 74 76 76 76 05/13/16 03:05 80 05/13/16 03:00 83 05/13/16 02:50 85 05/13/16 02:00 73 05/13/16 01:53 74 05/13/16 01:51 73 05/13/16 01:38 74 05/13/16 01:00 73 05/13/16 00:00 99.1 F 72 05/12/16 23:48 73 05/12/16 23:45 05/12/16 23:25 76 76 76 76 05/12/16 23:19 71 05/12/16 23:17 74 05/12/16 23:00 72 05/12/16 22:09 75 05/12/16 22:01 76 05/12/16 21:57 75 05/12/16 21:40 76 05/12/16 21:37 76 05/12/16 21:25 76 05/12/16 21:21 82 05/12/16 21:00 76 05/12/16 20:00 99.0 F 79 05/12/16 19:45 80 79 05/12/16 19:00 73 05/12/16 18:25 73 05/12/16 18:00 72 05/12/16 17:44 72 05/12/16 17:33 72 05/12/16 17:00 72 05/12/16 16:00 98.8 F 71 71 05/12/16 15:12 72 05/12/16 15:00 71 05/12/16 14:01 73 05/12/16 14:00 73 05/12/16 13:56 73 05/12/16 13:55 73 05/12/16 13:40 74 05/12/16 13:00 79 05/12/16 12:14 85 05/12/16 12:00 98.9 F 85 85 05/12/16 11:33 80 Pulse Pulse Resp Resp BP Pulse Ox Pulse Ox 05/13/16 10:55 117/71 100 05/13/16 10:08 117/71 100 05/13/16 10:00 16 117/71 98 05/13/16 09:05 133/79 05/13/16 09:02 137/78 05/13/16 09:00 19 133/79 99 05/13/16 08:52 137/78 05/13/16 08:29 19 137/78 100 05/13/16 08:00 17 137/78 99 05/13/16 07:50 05/13/16 07:45 18 05/13/16 07:36 100 05/13/16 07:30 130/78 100 05/13/16 07:29 18 05/13/16 07:00 18 130/78 99 05/13/16 06:27 19 138/77 100 05/13/16 06:00 17 138/77 99 05/13/16 05:37 18 139/78 98 05/13/16 05:35 18 139/78 98 05/13/16 05:13 139/78 98 98 05/13/16 05:11 16 139/78 99 05/13/16 05:00 19 139/78 99 05/13/16 04:25 17 146/82 99 05/13/16 04:00 76 76 17 146/82 100 05/13/16 03:05 25 H 05/13/16 03:00 27 H 145/86 98 05/13/16 02:50 20 05/13/16 02:00 16 134/79 98 05/13/16 01:53 19 124/74 99 05/13/16 01:51 19 124/74 99 05/13/16 01:38 16 124/74 99 05/13/16 01:00 14 124/74 98 05/13/16 00:00 17 130/76 98 05/12/16 23:48 129/79 99 05/12/16 23:45 99 05/12/16 23:25 76 76 31 H 05/12/16 23:19 21 129/79 99 05/12/16 23:17 20 129/79 100 05/12/16 23:00 20 129/79 99 05/12/16 22:09 21 119/80 100 05/12/16 22:01 16 119/80 99 05/12/16 21:57 129/79 05/12/16 21:40 05/12/16 21:37 19 129/79 100 05/12/16 21:25 20 129/79 100 05/12/16 21:21 127/66 05/12/16 21:00 20 129/79 99 05/12/16 20:00 24 127/78 99 05/12/16 19:45 20 122/76 100 05/12/16 19:00 19 122/76 05/12/16 18:25 22 120/76 100 05/12/16 18:00 23 120/76 05/12/16 17:44 117/72 100 05/12/16 17:33 23 117/72 100 05/12/16 17:00 24 117/72 99 05/12/16 16:00 24 108/72 100 05/12/16 15:12 18 05/12/16 15:00 23 117/74 100 05/12/16 14:01 24 127/82 99 05/12/16 14:00 24 127/82 05/12/16 13:56 127/81 05/12/16 13:55 23 127/81 100 05/12/16 13:40 127/81 05/12/16 13:00 26 H 127/81 99 05/12/16 12:14 143/86 95 05/12/16 12:00 25 H 143/86 98 05/12/16 11:33 17 130/79 97 - Physical Examination General: Other (vent to trach) HEENT: Positive: PERRL Cardiac: Positive: Reg Rate and Rhythm - Labs and Meds Coagulation 05/12/16 Range/Units 11:01 PT 13.8 (12.2-14.9) Sec. INR 1.07 (0.87-1.13) APTT 27.2 (24.2-36.6) Sec. CBC 05/13/16 Range/Units 04:45 WBC 18.1 H (4.5-11.0) K/mm3 RBC 3.26 L (3.65-5.03) M/mm3 Hgb 9.0 L (11.8-15.2) gm/dl Hct 29.0 L (35.5-45.6) % Plt Count 467 H (140-440) K/mm3 Lymph # Radio News Writer [place] # Radio News Writer Eos # Radio News Writer Baso # Radio News Writer Comprehensive Metabolic Panel 05/13/16 Range/Units 07:04 Sodium 145 (137-145) mmol/L Potassium 4.2 (3.6-5.0) mmol/L Chloride 109.1 H (98-107) mmol/L Carbon Dioxide 24 (22-30) mmol/L BUN 18 (9-20) mg/dL Creatinine 0.5 L (0.8-1.5) mg/dL Glucose 131 H (75-100) mg/dL Calcium 8.1 L (8.4-10.2) mg/dL - Imaging and Cardiology EKG: image reviewed
[2016-05-13] MEDS: NOVOLOG SUB-Q SCH ×3 (12:35→18:04)
--- NOTE | 2016-05-13 14:19 | Progress Note ---
Assessment and Plan Imp: 1. Acute CVA 2. Acute respiratory failure, hypoxia 3. S/p Trach 4. UTI 5. Sepsis 6. R/o Neck cellulitis per CT neck findings 7. Hypernatremia Rec: 1. Minimize sedation 2. Hold heparin again 3. Surgery f/u re: trach 4. Broadened ABX to Zosyn day #4 to cover UTI and any possible soft tissue infection 5. Tolerating PSV -> Tpiece now 6. SCDs ordered 7. TFs -> increased free water 8. Placement when able to secure benefits No family present Subjective Date of service: 05/13/16 Principal diagnosis: CVA, acute respiratory failure Interval history: Placed on Tpiece and coughed up some blood, seemed to stop on its own. He is unresponsive. Active Medications Acetaminophen (Tylenol) 650 mg PO Q4H PRN PRN Reason: Pain MILD(1-3)/Fever >100.5/DUVAL Last Admin: 05/08/16 19:44 Dose: 650 mg Albuterol/Ipratropium (Duoneb 0.5 Mg-3 Mg/3 Ml Soln) 1 ampul IH Q6HRT [facility] Last Admin: 05/13/16 14:34 Dose: 1 ampul Amiodarone HCl (Cordarone) 200 mg PO DAILY [facility] Last Admin: 05/13/16 09:03 Dose: 200 mg Amlodipine Besylate (Norvasc) 10 mg PO DAILY [facility] Last Admin: 05/13/16 09:02 Dose: 10 mg Lipase/Protease/Amylase (Pancreaze Dr 10,500 Unit) 1 each FEEDTUBE PRN PRN PRN Reason: For Clogged Feeding Tube Atorvastatin Calcium (Lipitor) 10 mg PO QHS [facility] Last Admin: 05/12/16 21:26 Dose: 10 mg Bisacodyl (Dulcolax) 10 mg [place] QDAY PRN PRN Reason: Constipation unrelieved by MOM Dextrose (D50w (25gm)) 50 ml IV PRN PRN PRN Reason: Hypoglycemia Last Admin: 05/13/16 17:35 Dose: 50 ml Famotidine (Pepcid) 20 mg PO BID [facility] Last Admin: 05/13/16 09:03 Dose: 20 mg Hydralazine HCl (Apresoline) 20 mg IV Q6H PRN PRN Reason: PRN SBP > 150 Last Admin: 04/23/16 00:38 Dose: 20 mg Hydrophilic Ointment (Vaseline Lip Therapy) 1 applic TP Q2HR PRN PRN Reason: Dry Lips Piperacillin Sod/Tazobactam Sod (Zosyn/Ns 4.5gm/100ml) 100 mls @ 200 mls/hr IV Q6HR [facility] Stop: 05/17/16 12:59 Last Admin: 05/13/16 17:37 Dose: 200 mls/hr Heparin Sodium/Sodium Chloride (Heparin/ 0.45% Nacl-25,000 Unit/500 Ml) 500 mls @ 18 mls/hr IV TITR ANA LUISA; 900 UNITS/HR PRN Reason: Protocol Last Titration: 05/13/16 12:55 Dose: 0 units/hr Insulin Aspart (Novolog) 0 units SUB-Q Q6HR ANA LUISA PRN Reason: Protocol Last Admin: 05/13/16 18:04 Dose: Not Given Insulin Detemir (Levemir) 40 units SUB-Q DAILY [facility] Last Admin: 05/13/16 09:01 Dose: 40 units Labetalol HCl (Normodyne) 400 mg PO TID [facility] Last Admin: 05/13/16 13:24 Dose: 400 mg Levetiracetam (Keppra) 500 mg PO BID [facility] Last Admin: 05/13/16 09:02 Dose: 500 mg Lisinopril (Zestril) 40 mg PO BID [facility] Last Admin: 05/13/16 09:05 Dose: Not Given Magnesium Hydroxide (Milk Of Magnesia) 30 ml PO Q4H PRN PRN Reason: Constipation Last Admin: 04/25/16 06:21 Dose: 30 ml Metoclopramide HCl (Reglan) 5 mg IV Q6H PRN PRN Reason: TUBE FEED RESIDUAL Last Admin: 04/25/16 06:21 Dose: 5 mg Multi-Ingred Cream/Lotion/Oil/Oint (Artificial Tears Ophth Oint) 1 applic OU Q4HR PRN PRN Reason: Dry Eye(s) Ondansetron HCl (Zofran) 4 mg IV Q8H PRN PRN Reason: N/V unrelieved by Reglan Last Admin: 04/20/16 21:53 Dose: 4 mg Simple Syrup (Simple Syrup) 15 ml FEEDTUBE PRN PRN PRN Reason: Hypoglycemia Last Admin: 05/08/16 17:53 Dose: 15 ml Simple Syrup (Simple Syrup) 30 ml FEEDTUBE PRN PRN PRN Reason: Hypoglycemia Sodium Bicarbonate (Sodium Bicarbonate) 325 mg FEEDTUBE PRN PRN PRN Reason: For Clogged Feeding Tube Sodium Chloride (Nacl 0.9% 500 Ml) 1 ml IV DIRECT ANA LUISA Warfarin Sodium (Coumadin Pharmacy To Dose) 1 each PO PKCONSULT ANA LUISA PRN Reason: Protocol Objective Vital Signs - 12hr 05/13/16 05/13/16 05/13/16 02:50 03:00 03:05 Temperature Pulse Rate 83 Pulse Rate [ Apical] Pulse Rate [ 85 80 Bilateral] Pulse Rate [ From Monitor] Pulse Rate [ Left Radial] Pulse Rate [ Right Dorsalis Pedis] Pulse Rate [ Right Radial] Respiratory 27 H Rate Respiratory 20 25 H Rate [Bilateral ] Blood Pressure 145/86 O2 Sat by Pulse 98 Oximetry O2 Sat by Pulse Oximetry [ Assessment] 05/13/16 05/13/16 05/13/16 04:00 04:25 05:00 Temperature 98.8 F Pulse Rate 74 76 77 Pulse Rate [ 76 Apical] Pulse Rate [ Bilateral] Pulse Rate [ 76 From Monitor] Pulse Rate [ 76 Left Radial] Pulse Rate [ 76 Right Dorsalis Pedis] Pulse Rate [ 76 Right Radial] Respiratory 17 17 19 Rate Respiratory Rate [Bilateral ] Blood Pressure 146/82 146/82 139/78 O2 Sat by Pulse 100 99 99 Oximetry O2 Sat by Pulse Oximetry [ Assessment] 05/13/16 05/13/16 05/13/16 05:11 05:13 05:35 Temperature Pulse Rate 79 76 77 Pulse Rate [ Apical] Pulse Rate [ Bilateral] Pulse Rate [ From Monitor] Pulse Rate [ Left Radial] Pulse Rate [ Right Dorsalis Pedis] Pulse Rate [ Right Radial] Respiratory 16 18 Rate Respiratory Rate [Bilateral ] Blood Pressure 139/78 139/78 139/78 O2 Sat by Pulse 99 98 98 Oximetry O2 Sat by Pulse 98 Oximetry [ Assessment] 05/13/16 05/13/16 05/13/16 05:37 06:00 06:27 Temperature Pulse Rate 77 77 77 Pulse Rate [ Apical] Pulse Rate [ Bilateral] Pulse Rate [ From Monitor] Pulse Rate [ Left Radial] Pulse Rate [ Right Dorsalis Pedis] Pulse Rate [ Right Radial] Respiratory 18 17 19 Rate Respiratory Rate [Bilateral ] Blood Pressure 139/78 138/77 138/77 O2 Sat by Pulse 98 99 100 Oximetry O2 Sat by Pulse Oximetry [ Assessment] 05/13/16 05/13/16 05/13/16 07:00 07:29 07:30 Temperature Pulse Rate 77 78 Pulse Rate [ Apical] Pulse Rate [ 82 Bilateral] Pulse Rate [ From Monitor] Pulse Rate [ Left Radial] Pulse Rate [ Right Dorsalis Pedis] Pulse Rate [ Right Radial] Respiratory 18 Rate Respiratory 18 Rate [Bilateral ] Blood Pressure 130/78 130/78 O2 Sat by Pulse 99 100 Oximetry O2 Sat by Pulse Oximetry [ Assessment] 05/13/16 05/13/16 05/13/16 07:36 07:45 07:50 Temperature 98.5 F Pulse Rate Pulse Rate [ Apical] Pulse Rate [ 84 Bilateral] Pulse Rate [ From Monitor] Pulse Rate [ Left Radial] Pulse Rate [ Right Dorsalis Pedis] Pulse Rate [ Right Radial] Respiratory Rate Respiratory 18 Rate [Bilateral ] Blood Pressure O2 Sat by Pulse Oximetry O2 Sat by Pulse 100 Oximetry [ Assessment] 05/13/16 05/13/16 05/13/16 08:00 08:29 08:52 Temperature Pulse Rate 78 80 83 Pulse Rate [ Apical] Pulse Rate [ Bilateral] Pulse Rate [ 78 From Monitor] Pulse Rate [ Left Radial] Pulse Rate [ Right Dorsalis Pedis] Pulse Rate [ Right Radial] Respiratory 17 19 Rate Respiratory Rate [Bilateral ] Blood Pressure 137/78 137/78 137/78 O2 Sat by Pulse 99 100 Oximetry O2 Sat by Pulse Oximetry [ Assessment] 05/13/16 05/13/16 05/13/16 09:00 09:02 09:05 Temperature Pulse Rate 79 80 80 Pulse Rate [ Apical] Pulse Rate [ Bilateral] Pulse Rate [ From Monitor] Pulse Rate [ Left Radial] Pulse Rate [ Right Dorsalis Pedis] Pulse Rate [ Right Radial] Respiratory 19 Rate Respiratory Rate [Bilateral ] Blood Pressure 133/79 137/78 133/79 O2 Sat by Pulse 99 Oximetry O2 Sat by Pulse Oximetry [ Assessment] 05/13/16 05/13/16 05/13/16 10:00 10:08 10:53 Temperature Pulse Rate 72 72 75 Pulse Rate [ Apical] Pulse Rate [ Bilateral] Pulse Rate [ From Monitor] Pulse Rate [ Left Radial] Pulse Rate [ Right Dorsalis Pedis] Pulse Rate [ Right Radial] Respiratory 16 21 Rate Respiratory Rate [Bilateral ] Blood Pressure 117/71 117/71 117/71 O2 Sat by Pulse 98 100 97 Oximetry O2 Sat by Pulse Oximetry [ Assessment] 05/13/16 05/13/16 05/13/16 10:55 11:00 11:47 Temperature 98.2 F Pulse Rate 76 78 Pulse Rate [ Apical] Pulse Rate [ Bilateral] Pulse Rate [ From Monitor] Pulse Rate [ Left Radial] Pulse Rate [ Right Dorsalis Pedis] Pulse Rate [ Right Radial] Respiratory 25 H Rate Respiratory Rate [Bilateral ] Blood Pressure 117/71 122/73 O2 Sat by Pulse 100 100 Oximetry O2 Sat by Pulse Oximetry [ Assessment] 05/13/16 05/13/16 05/13/16 12:00 12:48 13:00 Temperature Pulse Rate 85 82 79 Pulse Rate [ Apical] Pulse Rate [ Bilateral] Pulse Rate [ 85 From Monitor] Pulse Rate [ Left Radial] Pulse Rate [ Right Dorsalis Pedis] Pulse Rate [ Right Radial] Respiratory 40 H 19 30 H Rate Respiratory Rate [Bilateral ] Blood Pressure 130/76 130/76 110/67 O2 Sat by Pulse 96 100 100 Oximetry O2 Sat by Pulse Oximetry [ Assessment] 05/13/16 13:24 Temperature Pulse Rate 85 Pulse Rate [ Apical] Pulse Rate [ Bilateral] Pulse Rate [ From Monitor] Pulse Rate [ Left Radial] Pulse Rate [ Right Dorsalis Pedis] Pulse Rate [ Right Radial] Respiratory Rate Respiratory Rate [Bilateral ] Blood Pressure 110/67 O2 Sat by Pulse Oximetry O2 Sat by Pulse Oximetry [ Assessment] Constitutional: no acute distress, other (opens eyes, not following commands for me) Eyes: non-icteric ENT: other (tracheotomy) Neck: supple, other (no bleeding at trach site) Effort: normal Ascultation: Bilateral: other (coarse BS bilaterally) Percussion: Bilateral: not dull Cardiovascular: regular rate and rhythm (no mrg) Gastrointestinal: normoactive bowel sounds, soft, non-tender Extremities: no cyanosis, no edema Neurologic: other (eyes open, not following commands or moving extremities for me) Psychiatric: other (unable to assess) CBC and BMP: 05/13/16 04:45 05/13/16 07:04 ABG, PT/INR, D-dimer: ABG POC ABG pH 7.511 (7.35-7.45) H 05/06/16 05:30 POC ABG pCO2 36.2 (35-45) 05/06/16 05:30 POC ABG pO2 92 (80-105) 05/06/16 05:30 POC ABG HCO3 28.9 05/06/16 05:30 POC ABG Total CO2 30 05/06/16 05:30 POC ABG O2 Sat 98 05/06/16 05:30 PT/INR, D-dimer PT 13.8 Sec. (12.2-14.9) 05/12/16 11:01 INR 1.07 (0.87-1.13) 05/12/16 11:01 Abnormal lab findings: Abnormal Labs 03/24/16 03/24/16 03/24/16 17:58 20:25 23:23 WBC RBC Hgb Hct MCV MCH MCHC RDW Plt Count Lymph % (Auto) [place] % (Auto) Lymph # [place] # Baso # Seg Neutrophils % Seg Neuts % (Manual) Lymphocytes % (Manual) Monocytes % (Manual) Seg Neutrophils # Seg Neutrophils # Man Lymphocytes # (Manual) Monocytes # (Manual) Basophils # (Manual) Percent Retic PT INR APTT Heparin Anti-Xa Level POC ABG pH POC ABG pCO2 POC ABG pO2 Sodium 169 H* Potassium 3.5 L Chloride 130.3 H Carbon Dioxide BUN 28 H Creatinine 1.8 H Glucose POC Glucose 112 H Calcium Phosphorus Iron TIBC Lactate Dehydrogenase Total Creatine Kinase NT-Pro-B Natriuret Pep Total Protein Albumin Hvpov-6-Fxqknqcnr Gvntw-8-Essckcxcx Beta Globulins PEP Interpretation Cholesterol 221 H LDL Cholesterol Direct 146 H Vitamin B12 Urine WBC (Auto) Urine Creatinine Crossmatch 03/25/16 03/25/16 03/25/16 05:56 05:56 05:56 WBC 21.3 H RBC 6.32 H Hgb 16.7 H Hct 52.7 H MCV 83 L MCH 27 L MCHC RDW Plt Count Lymph % (Auto) [place] % (Auto) Lymph # [place] # Baso # Seg Neutrophils % Seg Neuts % (Manual) 91.0 H Lymphocytes % (Manual) 4.0 L Monocytes % (Manual) Seg Neutrophils # Seg Neutrophils # Man 19.4 H Lymphocytes # (Manual) 0.9 L Monocytes # (Manual) 0.9 H Basophils # (Manual) Percent Retic PT INR APTT Heparin Anti-Xa Level POC ABG pH POC ABG pCO2 POC ABG pO2 Sodium 172 H* Potassium 3.5 L Chloride 130.4 H Carbon Dioxide BUN 29 H Creatinine 1.8 H Glucose 187 H POC Glucose Calcium Phosphorus Iron TIBC Lactate Dehydrogenase 460 H Total Creatine Kinase NT-Pro-B Natriuret Pep Total Protein Albumin Ymfzk-5-Yvljqfyry Sduxg-7-Hmdibkkhb Beta Globulins PEP Interpretation Cholesterol LDL Cholesterol Direct Vitamin B12 Urine WBC (Auto) Urine Creatinine Crossmatch 03/25/16 03/25/16 03/25/16 07:55 12:19 13:00 WBC RBC Hgb Hct MCV MCH MCHC RDW Plt Count Lymph % (Auto) [place] % (Auto) Lymph # [place] # Baso # Seg Neutrophils % Seg Neuts % (Manual) Lymphocytes % (Manual) Monocytes % (Manual) Seg Neutrophils # Seg Neutrophils # Man Lymphocytes # (Manual) Monocytes # (Manual) Basophils # (Manual) Percent Retic PT INR APTT Heparin Anti-Xa Level POC ABG pH POC ABG pCO2 POC ABG pO2 Sodium Potassium Chloride Carbon Dioxide BUN Creatinine Glucose POC Glucose 231 H 314 H Calcium Phosphorus Iron TIBC Lactate Dehydrogenase Total Creatine Kinase NT-Pro-B Natriuret Pep Total Protein Albumin 3.4 L Fgznt-1-Ktgbfaddg 0.4 H Vzmyx-9-Jdmypdmoa 1.1 H Beta Globulins 0.6 H PEP Interpretation see below H Cholesterol LDL Cholesterol Direct Vitamin B12 Urine WBC (Auto) Urine Creatinine Crossmatch 03/25/16 03/25/16 03/26/16 16:41 22:45 08:32 WBC RBC Hgb Hct MCV MCH MCHC RDW Plt Count Lymph % (Auto) [place] % (Auto) Lymph # [place] # Baso # Seg Neutrophils % Seg Neuts % (Manual) Lymphocytes % (Manual) Monocytes % (Manual) Seg Neutrophils # Seg Neutrophils # Man Lymphocytes # (Manual) Monocytes # (Manual) Basophils # (Manual) Percent Retic PT INR APTT Heparin Anti-Xa Level POC ABG pH POC ABG pCO2 POC ABG pO2 Sodium Potassium Chloride Carbon Dioxide BUN Creatinine Glucose POC Glucose 444 H 326 H 360 H Calcium Phosphorus Iron TIBC Lactate Dehydrogenase Total Creatine Kinase NT-Pro-B Natriuret Pep Total Protein Albumin Hmuuy-1-Smkrllcvq Erafz-5-Begchvixa Beta Globulins PEP Interpretation Cholesterol LDL Cholesterol Direct Vitamin B12 Urine WBC (Auto) Urine Creatinine Crossmatch 03/26/16 03/26/16 03/26/16 12:38 15:33 15:47 WBC RBC Hgb Hct MCV MCH MCHC RDW Plt Count Lymph % (Auto) [place] % (Auto) Lymph # [place] # Baso # Seg Neutrophils % Seg Neuts % (Manual) Lymphocytes % (Manual) Monocytes % (Manual) Seg Neutrophils # Seg Neutrophils # Man Lymphocytes # (Manual) Monocytes # (Manual) Basophils # (Manual) Percent Retic PT INR APTT Heparin Anti-Xa Level POC ABG pH 7.511 H POC ABG pCO2 26.5 L POC ABG pO2 70 L Sodium Potassium Chloride Carbon Dioxide BUN Creatinine Glucose POC Glucose 280 H 174 H Calcium Phosphorus Iron TIBC Lactate Dehydrogenase Total Creatine Kinase NT-Pro-B Natriuret Pep Total Protein Albumin Gkant-5-Umxumlyha Nfacm-0-Lzugtvdwx Beta Globulins PEP Interpretation Cholesterol LDL Cholesterol Direct Vitamin B12 Urine WBC (Auto) Urine Creatinine Crossmatch 03/26/16 03/26/16 03/26/16 16:47 16:47 18:51 WBC 14.0 H RBC 5.17 H Hgb Hct MCV MCH 26 L MCHC 31 L RDW Plt Count 139 L Lymph % (Auto) [place] % (Auto) Lymph # [place] # Baso # Seg Neutrophils % Seg Neuts % (Manual) Lymphocytes % (Manual) Monocytes % (Manual) Seg Neutrophils # Seg Neutrophils # Man Lymphocytes # (Manual) Monocytes # (Manual) Basophils # (Manual) Percent Retic PT INR APTT Heparin Anti-Xa Level POC ABG pH POC ABG pCO2 33.9 L POC ABG pO2 150 H Sodium 164 H* Potassium 3.4 L Chloride 128.5 H Carbon Dioxide BUN 30 H Creatinine 2.2 H Glucose 121 H POC Glucose Calcium 8.1 L Phosphorus Iron TIBC Lactate Dehydrogenase Total Creatine Kinase NT-Pro-B Natriuret Pep Total Protein Albumin Sviul-7-Orlbxeivf Uhjoz-3-Dhyovsxdh Beta Globulins PEP Interpretation Cholesterol LDL Cholesterol Direct Vitamin B12 Urine WBC (Auto) Urine Creatinine Crossmatch 03/27/16 03/27/16 03/27/16 02:19 05:47 06:02 WBC RBC Hgb Hct MCV MCH MCHC RDW Plt Count Lymph % (Auto) [place] % (Auto) Lymph # [place] # Baso # Seg Neutrophils % Seg Neuts % (Manual) Lymphocytes % (Manual) Monocytes % (Manual) Seg Neutrophils # Seg Neutrophils # Man Lymphocytes # (Manual) Monocytes # (Manual) Basophils # (Manual) Percent Retic PT INR APTT Heparin Anti-Xa Level POC ABG pH POC ABG pCO2 27.3 L 30.3 L POC ABG pO2 50 L 112 H Sodium 158 H Potassium Chloride 126.7 H Carbon Dioxide 20 L BUN 25 H Creatinine 1.7 H Glucose POC Glucose Calcium 7.0 L Phosphorus Iron TIBC Lactate Dehydrogenase Total Creatine Kinase NT-Pro-B Natriuret Pep Total Protein Albumin Dmgls-4-Cjmmfaobu Eoqdz-6-Cefuqwtjc Beta Globulins PEP Interpretation Cholesterol LDL Cholesterol Direct Vitamin B12 Urine WBC (Auto) Urine Creatinine Crossmatch 03/27/16 03/27/16 03/27/16 07:51 09:20 11:45 WBC 14.2 H RBC Hgb Hct MCV 83 L MCH 27 L MCHC RDW Plt Count 113 L Lymph % (Auto) [place] % (Auto) Lymph # [place] # Baso # Seg Neutrophils % Seg Neuts % (Manual) Lymphocytes % (Manual) Monocytes % (Manual) Seg Neutrophils # Seg Neutrophils # Man Lymphocytes # (Manual) Monocytes # (Manual) Basophils # (Manual) Percent Retic PT INR APTT Heparin Anti-Xa Level POC ABG pH POC ABG pCO2 POC ABG pO2 Sodium Potassium Chloride Carbon Dioxide BUN Creatinine Glucose POC Glucose 124 H 241 H Calcium Phosphorus Iron TIBC Lactate Dehydrogenase Total Creatine Kinase NT-Pro-B Natriuret Pep Total Protein Albumin Kkwaj-8-Klnkdwluf Xrati-1-Onthkplej Beta Globulins PEP Interpretation Cholesterol LDL Cholesterol Direct Vitamin B12 Urine WBC (Auto) Urine Creatinine Crossmatch 03/27/16 03/27/16 03/28/16 16:39 22:03 03:29 WBC RBC Hgb Hct MCV MCH MCHC RDW Plt Count Lymph % (Auto) [place] % (Auto) Lymph # [place] # Baso # Seg Neutrophils % Seg Neuts % (Manual) Lymphocytes % (Manual) Monocytes % (Manual) Seg Neutrophils # Seg Neutrophils # Man Lymphocytes # (Manual) Monocytes # (Manual) Basophils # (Manual) Percent Retic PT INR APTT Heparin Anti-Xa Level POC ABG pH POC ABG pCO2 POC ABG pO2 Sodium Potassium Chloride Carbon Dioxide BUN Creatinine Glucose POC Glucose 266 H 167 H 241 H Calcium Phosphorus Iron TIBC Lactate Dehydrogenase Total Creatine Kinase NT-Pro-B Natriuret Pep Total Protein Albumin Qtivn-2-Udsqildok Zjdug-1-Dxgltxkmb Beta Globulins PEP Interpretation Cholesterol LDL Cholesterol Direct Vitamin B12 Urine WBC (Auto) Urine Creatinine Crossmatch 03/28/16 03/28/16 03/28/16 05:00 05:00 05:00 WBC RBC Hgb Hct MCV 83 L MCH 27 L MCHC RDW Plt Count 106 L Lymph % (Auto) [place] % (Auto) 10.1 H Lymph # [place] # 1.0 H Baso # Seg Neutrophils % 75.1 H Seg Neuts % (Manual) Lymphocytes % (Manual) Monocytes % (Manual) Seg Neutrophils # Seg Neutrophils # Man Lymphocytes # (Manual) Monocytes # (Manual) Basophils # (Manual) Percent Retic PT INR APTT Heparin Anti-Xa Level POC ABG pH POC ABG pCO2 POC ABG pO2 Sodium 147 H D Potassium 3.1 L D Chloride 112.3 H Carbon Dioxide 21 L BUN Creatinine Glucose 208 H POC Glucose Calcium 7.0 L Phosphorus 2.2 L Iron TIBC Lactate Dehydrogenase Total Creatine Kinase NT-Pro-B Natriuret Pep Total Protein Albumin Qteyx-9-Wkfpmaptw Mvqsq-4-Nvzqdsbwd Beta Globulins PEP Interpretation Cholesterol LDL Cholesterol Direct Vitamin B12 Urine WBC (Auto) Urine Creatinine Crossmatch 03/28/16 03/28/16 03/28/16 05:14 08:41 10:56 WBC RBC Hgb Hct MCV MCH MCHC RDW Plt Count Lymph % (Auto) [place] % (Auto) Lymph # [place] # Baso # Seg Neutrophils % Seg Neuts % (Manual) Lymphocytes % (Manual) Monocytes % (Manual) Seg Neutrophils # Seg Neutrophils # Man Lymphocytes # (Manual) Monocytes # (Manual) Basophils # (Manual) Percent Retic PT INR APTT Heparin Anti-Xa Level POC ABG pH 7.457 H POC ABG pCO2 29.7 L 27.7 L POC ABG pO2 Sodium Potassium Chloride Carbon Dioxide BUN Creatinine Glucose POC Glucose 228 H Calcium Phosphorus Iron TIBC Lactate Dehydrogenase Total Creatine Kinase NT-Pro-B Natriuret Pep Total Protein Albumin Olggy-2-Ibgvfrcbx Capjd-0-Wrrywcumb Beta Globulins PEP Interpretation Cholesterol LDL Cholesterol Direct Vitamin B12 Urine WBC (Auto) Urine Creatinine Crossmatch 03/28/16 03/28/16 03/28/16 11:37 13:29 16:22 WBC RBC Hgb Hct MCV MCH MCHC RDW Plt Count Lymph % (Auto) [place] % (Auto) Lymph # [place] # Baso # Seg Neutrophils % Seg Neuts % (Manual) Lymphocytes % (Manual) Monocytes % (Manual) Seg Neutrophils # Seg Neutrophils # Man Lymphocytes # (Manual) Monocytes # (Manual) Basophils # (Manual) Percent Retic PT INR APTT Heparin Anti-Xa Level POC ABG pH POC ABG pCO2 POC ABG pO2 Sodium Potassium Chloride Carbon Dioxide BUN Creatinine Glucose POC Glucose 226 H 200 H Calcium Phosphorus Iron TIBC Lactate Dehydrogenase Total Creatine Kinase 356 H NT-Pro-B Natriuret Pep Total Protein Albumin Dkydm-9-Vecjymjeb Zcjir-3-Jjrlpplde Beta Globulins PEP Interpretation Cholesterol LDL Cholesterol Direct Vitamin B12 Urine WBC (Auto) Urine Creatinine Crossmatch 03/28/16 03/29/16 03/29/16 21:48 04:50 04:50 WBC RBC Hgb 11.5 L Hct 35.3 L MCV 81 L MCH 26 L MCHC RDW Plt Count 97 L Lymph % (Auto) [place] % (Auto) 11.7 H Lymph # [place] # 1.1 H Baso # Seg Neutrophils % Seg Neuts % (Manual) Lymphocytes % (Manual) Monocytes % (Manual) Seg Neutrophils # Seg Neutrophils # Man Lymphocytes # (Manual) Monocytes # (Manual) Basophils # (Manual) Percent Retic PT INR APTT Heparin Anti-Xa Level POC ABG pH POC ABG pCO2 POC ABG pO2 Sodium 136 L D Potassium 3.3 L Chloride Carbon Dioxide 20 L BUN Creatinine Glucose 386 H POC Glucose 188 H Calcium 6.8 L Phosphorus 1.6 L D Iron TIBC Lactate Dehydrogenase Total Creatine Kinase NT-Pro-B Natriuret Pep Total Protein Albumin Trfpo-7-Qwnadpblv Hhegg-7-Nakepqweh Beta Globulins PEP Interpretation Cholesterol LDL Cholesterol Direct Vitamin B12 Urine WBC (Auto) Urine Creatinine Crossmatch 03/29/16 03/29/16 03/29/16 08:10 11:12 16:09 WBC RBC Hgb Hct MCV MCH MCHC RDW Plt Count Lymph % (Auto) [place] % (Auto) Lymph # [place] # Baso # Seg Neutrophils % Seg Neuts % (Manual) Lymphocytes % (Manual) Monocytes % (Manual) Seg Neutrophils # Seg Neutrophils # Man Lymphocytes # (Manual) Monocytes # (Manual) Basophils # (Manual) Percent Retic PT INR APTT Heparin Anti-Xa Level POC ABG pH POC ABG pCO2 POC ABG pO2 Sodium Potassium Chloride Carbon Dioxide BUN Creatinine Glucose POC Glucose 230 H 180 H 46 L Calcium Phosphorus Iron TIBC Lactate Dehydrogenase Total Creatine Kinase NT-Pro-B Natriuret Pep Total Protein Albumin Vatyb-1-Coocadmas Hwkrn-7-Emjmawtey Beta Globulins PEP Interpretation Cholesterol LDL Cholesterol Direct Vitamin B12 Urine WBC (Auto) Urine Creatinine Crossmatch 03/29/16 03/29/16 03/30/16 16:12 18:15 02:53 WBC RBC Hgb Hct MCV MCH MCHC RDW Plt Count Lymph % (Auto) [place] % (Auto) Lymph # [place] # Baso # Seg Neutrophils % Seg Neuts % (Manual) Lymphocytes % (Manual) Monocytes % (Manual) Seg Neutrophils # Seg Neutrophils # Man Lymphocytes # (Manual) Monocytes # (Manual) Basophils # (Manual) Percent Retic PT INR APTT Heparin Anti-Xa Level POC ABG pH POC ABG pCO2 POC ABG pO2 Sodium Potassium Chloride Carbon Dioxide BUN Creatinine Glucose POC Glucose 52 L 118 H 130 H Calcium Phosphorus Iron TIBC Lactate Dehydrogenase Total Creatine Kinase NT-Pro-B Natriuret Pep Total Protein Albumin Gujix-7-Cainplgzh Oxwhq-4-Qibffhzei Beta Globulins PEP Interpretation Cholesterol LDL Cholesterol Direct Vitamin B12 Urine WBC (Auto) Urine Creatinine Crossmatch 03/30/16 03/30/16 03/30/16 04:00 04:00 05:29 WBC RBC Hgb Hct MCV 81 L MCH 26 L MCHC RDW Plt Count 116 L Lymph % (Auto) 10.8 L [place] % (Auto) 13.1 H Lymph # 1.0 L [place] # 1.3 H Baso # Seg Neutrophils % 74.2 H Seg Neuts % (Manual) Lymphocytes % (Manual) Monocytes % (Manual) Seg Neutrophils # Seg Neutrophils # Man Lymphocytes # (Manual) Monocytes # (Manual) Basophils # (Manual) Percent Retic PT INR APTT Heparin Anti-Xa Level POC ABG pH 7.522 H POC ABG pCO2 22.7 L POC ABG pO2 137 H Sodium 147 H D Potassium Chloride 115.5 H Carbon Dioxide 20 L BUN Creatinine Glucose 116 H POC Glucose Calcium 7.6 L Phosphorus 2.3 L D Iron TIBC Lactate Dehydrogenase Total Creatine Kinase NT-Pro-B Natriuret Pep Total Protein Albumin Abogy-2-Neuwpucgn Ekiga-4-Mmplbysnf Beta Globulins PEP Interpretation Cholesterol LDL Cholesterol Direct Vitamin B12 Urine WBC (Auto) Urine Creatinine Crossmatch 03/30/16 03/30/1603/30/16 05:47 08:05 08:59 WBC RBC Hgb Hct MCV MCH MCHC RDW Plt Count Lymph % (Auto) [place] % (Auto) Lymph # [place] # Baso # Seg Neutrophils % Seg Neuts % (Manual) Lymphocytes % (Manual) Monocytes % (Manual) Seg Neutrophils # Seg Neutrophils # Man Lymphocytes # (Manual) Monocytes # (Manual) Basophils # (Manual) Percent Retic PT INR APTT Heparin Anti-Xa Level POC ABG pH POC ABG pCO2 26.2 L POC ABG pO2 115 H Sodium Potassium Chloride Carbon Dioxide BUN Creatinine Glucose POC Glucose 138 H 171 H Calcium Phosphorus Iron TIBC Lactate Dehydrogenase Total Creatine Kinase NT-Pro-B Natriuret Pep Total Protein Albumin Wxout-4-[id number] Osskn-3-Kdyudgywj Beta Globulins PEP Interpretation Cholesterol LDL Cholesterol Direct Vitamin B12 Urine WBC (Auto) Urine Creatinine Crossmatch 03/30/16 03/30/16 03/30/16 12:11 12:11 16:39 WBC RBC Hgb Hct MCV MCH MCHC RDW Plt Count Lymph % (Auto) [place] % (Auto) Lymph # [place] # Baso # Seg Neutrophils % Seg Neuts % (Manual) Lymphocytes % (Manual) Monocytes % (Manual) Seg Neutrophils # Seg Neutrophils # Man Lymphocytes # (Manual) Monocytes # (Manual) Basophils # (Manual) Percent Retic PT INR APTT Heparin Anti-Xa Level POC ABG pH 7.476 H POC ABG pCO2 29.0 L POC ABG pO2 Sodium Potassium Chloride Carbon Dioxide BUN Creatinine Glucose POC Glucose 142 H 59 L Calcium Phosphorus Iron TIBC Lactate Dehydrogenase Total Creatine Kinase NT-Pro-B Natriuret Pep Total Protein Albumin Tujxk-5-Esqpucmlc Obmhf-6-Gqtgbildq Beta Globulins PEP Interpretation Cholesterol LDL Cholesterol Direct Vitamin B12 Urine WBC (Auto) Urine Creatinine Crossmatch 03/30/16 03/30/16 03/31/16 18:41 21:59 05:02 WBC RBC Hgb Hct MCV MCH MCHC RDW Plt Count Lymph % (Auto) [place] % (Auto) Lymph # [place] # Baso # Seg Neutrophils % Seg Neuts % (Manual) Lymphocytes % (Manual) Monocytes % (Manual) Seg Neutrophils # Seg Neutrophils # Man Lymphocytes # (Manual) Monocytes # (Manual) Basophils # (Manual) Percent Retic PT INR APTT Heparin Anti-Xa Level POC ABG pH 7.519 H POC ABG pCO2 21.8 L POC ABG pO2 142 H Sodium Potassium Chloride Carbon Dioxide BUN Creatinine Glucose POC Glucose 145 H 154 H Calcium Phosphorus Iron TIBC Lactate Dehydrogenase Total Creatine Kinase NT-Pro-B Natriuret Pep Total Protein Albumin Yytyk-5-Shklnwquc Tvdkp-1-Botbivlnp Beta Globulins PEP Interpretation Cholesterol LDL Cholesterol Direct Vitamin B12 Urine WBC (Auto) Urine Creatinine Crossmatch 03/31/16 03/31/16 03/31/16 05:15 05:15 05:15 WBC 13.4 H RBC 5.21 H Hgb Hct MCV 81 L MCH 26 L MCHC RDW Plt Count Lymph % (Auto) 9.5 L [place] % (Auto) 14.0 H Lymph # [place] # 1.9 H Baso # Seg Neutrophils % 75.0 H Seg Neuts % (Manual) Lymphocytes % (Manual) Monocytes % (Manual) Seg Neutrophils # 10.1 H Seg Neutrophils # Man Lymphocytes # (Manual) Monocytes # (Manual) Basophils # (Manual) Percent Retic PT INR APTT Heparin Anti-Xa Level POC ABG pH POC ABG pCO2 POC ABG pO2 Sodium Potassium Chloride 108.5 H Carbon Dioxide 19 L BUN Creatinine Glucose 188 H POC Glucose Calcium Phosphorus Iron TIBC Lactate Dehydrogenase Total Creatine Kinase NT-Pro-B Natriuret Pep 1089 H Total Protein Albumin Jbfiv-2-Xovscnqgc Nsfxe-0-Ixgibiivc Beta Globulins PEP Interpretation Cholesterol LDL Cholesterol Direct Vitamin B12 Urine WBC (Auto) Urine Creatinine Crossmatch 03/31/16 03/31/16 03/31/16 07:23 11:12 15:20 WBC RBC Hgb Hct MCV MCH MCHC RDW Plt Count Lymph % (Auto) [place] % (Auto) Lymph # [place] # Baso # Seg Neutrophils % Seg Neuts % (Manual) Lymphocytes % (Manual) Monocytes % (Manual) Seg Neutrophils # Seg Neutrophils # Man Lymphocytes # (Manual) Monocytes # (Manual) Basophils # (Manual) Percent Retic PT INR APTT Heparin Anti-Xa Level POC ABG pH POC ABG pCO2 POC ABG pO2 Sodium Potassium Chloride Carbon Dioxide BUN Creatinine Glucose POC Glucose 233 H 228 H 208 H Calcium Phosphorus Iron TIBC Lactate Dehydrogenase Total Creatine Kinase NT-Pro-B Natriuret Pep Total Protein Albumin Zeqti-3-Yislhbubu Uxcha-8-Vpkopqfss Beta Globulins PEP Interpretation Cholesterol LDL Cholesterol Direct Vitamin B12 Urine WBC (Auto) Urine Creatinine Crossmatch 03/31/16 04/01/16 04/01/16 21:27 04:41 05:35 WBC 12.1 H RBC Hgb Hct MCV 81 L MCH 26 L MCHC RDW Plt Count Lymph % (Auto) 8.5 L [place] % (Auto) 14.0 H Lymph # 1.0 L [place] # 1.7 H Baso # Seg Neutrophils % 76.2 H Seg Neuts % (Manual) Lymphocytes % (Manual) Monocytes % (Manual) Seg Neutrophils # 9.2 H Seg Neutrophils # Man Lymphocytes # (Manual) Monocytes # (Manual) Basophils # (Manual) Percent Retic PT INR APTT Heparin Anti-Xa Level POC ABG pH 7.455 H POC ABG pCO2 31.0 L POC ABG pO2 Sodium Potassium Chloride Carbon Dioxide BUN Creatinine Glucose POC Glucose 162 H Calcium Phosphorus Iron TIBC Lactate Dehydrogenase Total Creatine Kinase NT-Pro-B Natriuret Pep Total Protein Albumin Yumnx-4-Ubuzoldut Lohxq-3-Scdosuuht Beta Globulins PEP Interpretation Cholesterol LDL Cholesterol Direct Vitamin B12 Urine WBC (Auto) Urine Creatinine Crossmatch 04/01/16 04/01/16 04/01/16 05:35 08:44 12:49 WBC RBC Hgb Hct MCV MCH MCHC RDW Plt Count Lymph % (Auto) [place] % (Auto) Lymph # [place] # Baso # Seg Neutrophils % Seg Neuts % (Manual) Lymphocytes % (Manual) Monocytes % (Manual) Seg Neutrophils # Seg Neutrophils # Man Lymphocytes # (Manual) Monocytes # (Manual) Basophils # (Manual) Percent Retic PT INR APTT Heparin Anti-Xa Level POC ABG pH POC ABG pCO2 POC ABG pO2 Sodium Potassium Chloride Carbon Dioxide BUN Creatinine Glucose 256 H POC Glucose 257 H 279 H Calcium 8.0 L Phosphorus Iron TIBC Lactate Dehydrogenase Total Creatine Kinase NT-Pro-B Natriuret Pep 1205 H Total Protein Albumin Bohvc-8-Iywdbrysg Jfvfj-3-Zoehjqcsz Beta Globulins PEP Interpretation Cholesterol LDL Cholesterol Direct Vitamin B12 Urine WBC (Auto) Urine Creatinine Crossmatch 04/01/16 04/02/16 04/02/16 18:12 00:42 04:17 WBC RBC Hgb Hct MCV MCH MCHC RDW Plt Count Lymph % (Auto) [place] % (Auto) Lymph # [place] # Baso # Seg Neutrophils % Seg Neuts % (Manual) Lymphocytes % (Manual) Monocytes % (Manual) Seg Neutrophils # Seg Neutrophils # Man Lymphocytes # (Manual) Monocytes # (Manual) Basophils # (Manual) Percent Retic PT INR APTT Heparin Anti-Xa Level POC ABG pH 7.582 H POC ABG pCO2 26.8 L POC ABG pO2 Sodium Potassium Chloride Carbon Dioxide BUN Creatinine Glucose POC Glucose 168 H 282 H Calcium Phosphorus Iron TIBC Lactate Dehydrogenase Total Creatine Kinase NT-Pro-B Natriuret Pep Total Protein Albumin Ingrs-8-Fizwvqpnx Olcwf-1-Cydlhgtpq Beta Globulins PEP Interpretation Cholesterol LDL Cholesterol Direct Vitamin B12 Urine WBC (Auto) Urine Creatinine Crossmatch 04/02/16 04/02/16 04/02/16 05:00 05:00 06:27 WBC 12.4 H RBC Hgb Hct MCV 81 L MCH 26 L MCHC RDW Plt Count Lymph % (Auto) 6.4 L [place] % (Auto) 13.3 H Lymph # 0.8 L [place] # 1.7 H Baso # Seg Neutrophils % 79.4 H Seg Neuts % (Manual) Lymphocytes % (Manual) Monocytes % (Manual) Seg Neutrophils # 9.9 H Seg Neutrophils # Man Lymphocytes # (Manual) Monocytes # (Manual) Basophils # (Manual) Percent Retic PT INR APTT Heparin Anti-Xa Level POC ABG pH POC ABG pCO2 POC ABG pO2 Sodium 146 H Potassium Chloride Carbon Dioxide BUN Creatinine Glucose 334 H POC Glucose 317 H Calcium 8.0 L Phosphorus Iron TIBC Lactate Dehydrogenase Total Creatine Kinase NT-Pro-B Natriuret Pep Total Protein Albumin Pelaj-5-Uosilvysl Zxyyo-9-Bsdgltpal Beta Globulins PEP Interpretation Cholesterol LDL Cholesterol Direct Vitamin B12 Urine WBC (Auto) Urine Creatinine Crossmatch 04/02/16 04/02/16 04/02/16 11:51 13:10 17:24 WBC RBC Hgb Hct MCV MCH MCHC RDW Plt Count Lymph % (Auto) [place] % (Auto) Lymph # [place] # Baso # Seg Neutrophils % Seg Neuts % (Manual) Lymphocytes % (Manual) Monocytes % (Manual) Seg Neutrophils # Seg Neutrophils # Man Lymphocytes # (Manual) Monocytes # (Manual) Basophils # (Manual) Percent Retic PT INR APTT Heparin Anti-Xa Level POC ABG pH 7.518 H POC ABG pCO2 POC ABG pO2 Sodium Potassium Chloride Carbon Dioxide BUN Creatinine Glucose POC Glucose 278 H 195 H Calcium Phosphorus Iron TIBC Lactate Dehydrogenase Total Creatine Kinase NT-Pro-B Natriuret Pep Total Protein Albumin Tlfdu-2-Vyzwreoef Kohwf-7-Moiqiebvr Beta Globulins PEP Interpretation Cholesterol LDL Cholesterol Direct Vitamin B12 Urine WBC (Auto) Urine Creatinine Crossmatch 04/03/16 04/03/16 04/03/16 00:18 04:10 04:10 WBC 14.3 H RBC Hgb Hct MCV 81 L MCH 26 L MCHC RDW Plt Count Lymph % (Auto) 9.0 L [place] % (Auto) 10.7 H Lymph # [place] # 1.5 H Baso # 0.2 H Seg Neutrophils % 78.5 H Seg Neuts % (Manual) Lymphocytes % (Manual) Monocytes % (Manual) Seg Neutrophils # 11.3 H Seg Neutrophils # Man Lymphocytes # (Manual) Monocytes # (Manual) Basophils # (Manual) Percent Retic PT INR APTT Heparin Anti-Xa Level POC ABG pH POC ABG pCO2 POC ABG pO2 Sodium 148 H Potassium Chloride 108.1 H Carbon Dioxide BUN 21 H Creatinine Glucose 227 H POC Glucose 144 H Calcium 8.2 L Phosphorus Iron TIBC Lactate Dehydrogenase Total Creatine Kinase NT-Pro-B Natriuret Pep Total Protein Albumin Fbdyh-0-Nxfcccedc Gocbx-3-Vqlhylwij Beta Globulins PEP Interpretation Cholesterol LDL Cholesterol Direct Vitamin B12 Urine WBC (Auto) Urine Creatinine Crossmatch 04/03/16 04/03/16 04/04/16 11:14 17:10 04:00 WBC 14.5 H RBC Hgb Hct MCV 81 L MCH 26 L MCHC RDW Plt Count Lymph % (Auto) 7.2 L [place] % (Auto) 7.6 H Lymph # 1.0 L [place] # 1.1 H Baso # Seg Neutrophils % 84.5 H Seg Neuts % (Manual) Lymphocytes % (Manual) Monocytes % (Manual) Seg Neutrophils # 12.3 H Seg Neutrophils # Man Lymphocytes # (Manual) Monocytes # (Manual) Basophils # (Manual) Percent Retic PT INR APTT Heparin Anti-Xa Level POC ABG pH POC ABG pCO2 POC ABG pO2 Sodium Potassium Chloride Carbon Dioxide BUN Creatinine Glucose POC Glucose 267 H 212 H Calcium Phosphorus Iron TIBC Lactate Dehydrogenase Total Creatine Kinase NT-Pro-B Natriuret Pep Total Protein Albumin Ftdwm-4-Cbzacsslc Nonfm-2-Bnqqpsabz Beta Globulins PEP Interpretation Cholesterol LDL Cholesterol Direct Vitamin B12 Urine WBC (Auto) Urine Creatinine Crossmatch 04/04/16 04/04/16 04/04/16 05:00 09:55 09:55 WBC RBC Hgb 11.5 L Hct MCV MCH MCHC RDW Plt Count Lymph % (Auto) [place] % (Auto) Lymph # [place] # Baso # Seg Neutrophils % Seg Neuts % (Manual) Lymphocytes % (Manual) Monocytes % (Manual) Seg Neutrophils # Seg Neutrophils # Man Lymphocytes # (Manual) Monocytes # (Manual) Basophils # (Manual) Percent Retic PT INR APTT 42.1 H Heparin Anti-Xa Level POC ABG pH POC ABG pCO2 POC ABG pO2 Sodium 146 H Potassium Chloride Carbon Dioxide BUN 22 H Creatinine Glucose 128 H POC Glucose Calcium Phosphorus Iron TIBC Lactate Dehydrogenase Total Creatine Kinase NT-Pro-B Natriuret Pep Total Protein Albumin Hfbxx-5-Mkztyaypm Nqjxe-8-Erxgqulzo Beta Globulins PEP Interpretation Cholesterol LDL Cholesterol Direct Vitamin B12 Urine WBC (Auto) Urine Creatinine Crossmatch 04/04/16 04/04/16 04/04/16 11:45 17:49 17:55 WBC RBC Hgb Hct MCV MCH MCHC RDW Plt Count Lymph % (Auto) [place] % (Auto) Lymph # [place] # Baso # Seg Neutrophils % Seg Neuts % (Manual) Lymphocytes % (Manual) Monocytes % (Manual) Seg Neutrophils # Seg Neutrophils # Man Lymphocytes # (Manual) Monocytes # (Manual) Basophils # (Manual) Percent Retic PT INR APTT Heparin Anti-Xa Level 1.19 H POC ABG pH POC ABG pCO2 POC ABG pO2 Sodium Potassium Chloride Carbon Dioxide BUN Creatinine Glucose POC Glucose 231 H 186 H Calcium Phosphorus Iron TIBC Lactate Dehydrogenase Total Creatine Kinase NT-Pro-B Natriuret Pep Total Protein Albumin Vhzrt-0-Mpexdkcer Fsxfn-3-Xmnaoiyur Beta Globulins PEP Interpretation Cholesterol LDL Cholesterol Direct Vitamin B12 Urine WBC (Auto) Urine Creatinine Crossmatch 04/05/16 04/05/16 04/05/16 00:35 05:32 05:42 WBC RBC Hgb Hct MCV MCH MCHC RDW Plt Count Lymph % (Auto) [place] % (Auto) Lymph # [place] # Baso # Seg Neutrophils % Seg Neuts % (Manual) Lymphocytes % (Manual) Monocytes % (Manual) Seg Neutrophils # Seg Neutrophils # Man Lymphocytes # (Manual) Monocytes # (Manual) Basophils # (Manual) Percent Retic PT INR APTT Heparin Anti-Xa Level POC ABG pH 7.491 H POC ABG pCO2 POC ABG pO2 Sodium Potassium Chloride Carbon Dioxide BUN Creatinine Glucose POC Glucose 192 H 242 H Calcium Phosphorus Iron TIBC Lactate Dehydrogenase Total Creatine Kinase NT-Pro-B Natriuret Pep Total Protein Albumin Njkps-1-Knmzbhuov Wbiaz-4-Fiiwfblvi Beta Globulins PEP Interpretation Cholesterol LDL Cholesterol Direct Vitamin B12 Urine WBC (Auto) Urine Creatinine Crossmatch 04/05/16 04/05/16 04/05/16 06:20 06:20 12:19 WBC 13.9 H RBC Hgb 11.6 L Hct MCV 81 L MCH 26 L MCHC RDW Plt Count Lymph % (Auto) 9.6 L [place] % (Auto) 8.7 H Lymph # [place] # 1.2 H Baso # Seg Neutrophils % 80.9 H Seg Neuts % (Manual) Lymphocytes % (Manual) Monocytes % (Manual) Seg Neutrophils # 11.3 H Seg Neutrophils # Man Lymphocytes # (Manual) Monocytes # (Manual) Basophils # (Manual) Percent Retic PT INR APTT Heparin Anti-Xa Level POC ABG pH POC ABG pCO2 POC ABG pO2 Sodium 148 H Potassium Chloride Carbon Dioxide BUN 23 H Creatinine Glucose 242 H POC Glucose 187 H Calcium Phosphorus Iron TIBC Lactate Dehydrogenase Total Creatine Kinase NT-Pro-B Natriuret Pep Total Protein Albumin Nrfle-4-Zqzfifsru Ufgeh-1-Knmgpunbp Beta Globulins PEP Interpretation Cholesterol LDL Cholesterol Direct Vitamin B12 Urine WBC (Auto) Urine Creatinine Crossmatch 04/05/16 04/05/16 04/06/16 17:10 23:45 05:23 WBC 13.0 H RBC Hgb Hct MCV 82 L MCH 26 L MCHC 31 L RDW Plt Count Lymph % (Auto) 6.7 L [place] % (Auto) 8.3 H Lymph # 0.9 L [place] # 1.1 H Baso # Seg Neutrophils % 84.6 H Seg Neuts % (Manual) Lymphocytes % (Manual) Monocytes % (Manual) Seg Neutrophils # 11.0 H Seg Neutrophils # Man Lymphocytes # (Manual) Monocytes # (Manual) Basophils # (Manual) Percent Retic PT INR APTT Heparin Anti-Xa Level POC ABG pH POC ABG pCO2 POC ABG pO2 Sodium Potassium Chloride Carbon Dioxide BUN Creatinine Glucose POC Glucose 169 H 202 H Calcium Phosphorus Iron TIBC Lactate Dehydrogenase Total Creatine Kinase NT-Pro-B Natriuret Pep Total Protein Albumin Ruaku-7-Mouaeelfb Swqbb-7-Jygylxnfn Beta Globulins PEP Interpretation Cholesterol LDL Cholesterol Direct Vitamin B12 Urine WBC (Auto) Urine Creatinine Crossmatch 04/06/16 04/06/16 04/06/16 05:23 05:23 06:11 WBC RBC Hgb Hct MCV MCH MCHC RDW Plt Count Lymph % (Auto) [place] % (Auto) Lymph # [place] # Baso # Seg Neutrophils % Seg Neuts % (Manual) Lymphocytes % (Manual) Monocytes % (Manual) Seg Neutrophils # Seg Neutrophils # Man Lymphocytes # (Manual) Monocytes # (Manual) Basophils # (Manual) Percent Retic PT INR APTT Heparin Anti-Xa Level 0.21 L POC ABG pH POC ABG pCO2 POC ABG pO2 Sodium 153 H Potassium Chloride 111.3 H Carbon Dioxide BUN 22 H Creatinine Glucose 62 L POC Glucose 56 L Calcium Phosphorus Iron TIBC Lactate Dehydrogenase Total Creatine Kinase NT-Pro-B Natriuret Pep Total Protein Albumin Hwmhq-5-Obysuisql Xrntt-2-Tosgffpzz Beta Globulins PEP Interpretation Cholesterol LDL Cholesterol Direct Vitamin B12 Urine WBC (Auto) Urine Creatinine Crossmatch 04/06/16 04/06/16 04/06/16 06:52 11:36 14:58 WBC RBC Hgb Hct MCV MCH MCHC RDW Plt Count Lymph % (Auto) [place] % (Auto) Lymph # [place] # Baso # Seg Neutrophils % Seg Neuts % (Manual) Lymphocytes % (Manual) Monocytes % (Manual) Seg Neutrophils # Seg Neutrophils # Man Lymphocytes # (Manual) Monocytes # (Manual) Basophils # (Manual) Percent Retic PT INR APTT Heparin Anti-Xa Level POC ABG pH POC ABG pCO2 POC ABG pO2 Sodium Potassium Chloride Carbon Dioxide BUN Creatinine Glucose POC Glucose 206 H 139 H 147 H Calcium Phosphorus Iron TIBC Lactate Dehydrogenase Total Creatine Kinase NT-Pro-B Natriuret Pep Total Protein Albumin Gxwcj-2-Lgbwatjbj Vmqvt-2-Bxpfsquoo Beta Globulins PEP Interpretation Cholesterol LDL Cholesterol Direct Vitamin B12 Urine WBC (Auto) Urine Creatinine Crossmatch 04/06/16 04/06/16 04/06/16 16:03 21:18 23:53 WBC RBC Hgb Hct MCV MCH MCHC RDW Plt Count Lymph % (Auto) [place] % (Auto) Lymph # [place] # Baso # Seg Neutrophils % Seg Neuts % (Manual) Lymphocytes % (Manual) Monocytes % (Manual) Seg Neutrophils # Seg Neutrophils # Man Lymphocytes # (Manual) Monocytes # (Manual) Basophils # (Manual) Percent Retic PT INR APTT Heparin Anti-Xa Level POC ABG pH POC ABG pCO2 POC ABG pO2 Sodium Potassium Chloride Carbon Dioxide BUN Creatinine Glucose POC Glucose 154 H 293 H 301 H Calcium Phosphorus Iron TIBC Lactate Dehydrogenase Total Creatine Kinase NT-Pro-B Natriuret Pep Total Protein Albumin Phjyy-7-Xselhzlhc Prqul-3-Zrondzzle Beta Globulins PEP Interpretation Cholesterol LDL Cholesterol Direct Vitamin B12 Urine WBC (Auto) Urine Creatinine Crossmatch 04/07/16 04/07/16 04/07/16 02:30 05:11 05:11 WBC 12.5 H RBC Hgb 11.5 L Hct MCV 82 L MCH 26 L MCHC 31 L RDW Plt Count Lymph % (Auto) [place] % (Auto) Lymph # [place] # Baso # Seg Neutrophils % Seg Neuts % (Manual) Lymphocytes % (Manual) Monocytes % (Manual) Seg Neutrophils # Seg Neutrophils # Man Lymphocytes # (Manual) Monocytes # (Manual) Basophils # (Manual) Percent Retic PT INR APTT Heparin Anti-Xa Level 0.11 L POC ABG pH POC ABG pCO2 POC ABG pO2 Sodium 150 H Potassium Chloride 109.5 H Carbon Dioxide BUN 28 H Creatinine Glucose 264 H POC Glucose Calcium Phosphorus Iron TIBC Lactate Dehydrogenase Total Creatine Kinase NT-Pro-B Natriuret Pep Total Protein Albumin Fsxbv-5-Inlshfrnp Zjrka-8-Ctqqogyna Beta Globulins PEP Interpretation Cholesterol LDL Cholesterol Direct Vitamin B12 Urine WBC (Auto) Urine Creatinine Crossmatch 04/07/16 04/07/16 04/07/16 06:46 10:18 11:50 WBC RBC Hgb Hct MCV MCH MCHC RDW Plt Count Lymph % (Auto) [place] % (Auto) Lymph # [place] # Baso # Seg Neutrophils % Seg Neuts % (Manual) Lymphocytes % (Manual) Monocytes % (Manual) Seg Neutrophils # Seg Neutrophils # Man Lymphocytes # (Manual) Monocytes # (Manual) Basophils # (Manual) Percent Retic PT 15.1 H INR 1.20 H APTT Heparin Anti-Xa Level POC ABG pH POC ABG pCO2 POC ABG pO2 Sodium Potassium Chloride Carbon Dioxide BUN Creatinine Glucose POC Glucose 259 H 288 H Calcium Phosphorus Iron TIBC Lactate Dehydrogenase Total Creatine Kinase NT-Pro-B Natriuret Pep Total Protein Albumin Fxymn-9-Ymrsxweyx Rxkhj-3-Ixyznlbeb Beta Globulins PEP Interpretation Cholesterol LDL Cholesterol Direct Vitamin B12 Urine WBC (Auto) Urine Creatinine Crossmatch 04/07/16 04/08/16 04/08/16 17:58 01:25 06:49 WBC RBC Hgb Hct MCV MCH MCHC RDW Plt Count Lymph % (Auto) [place] % (Auto) Lymph # [place] # Baso # Seg Neutrophils % Seg Neuts % (Manual) Lymphocytes % (Manual) Monocytes % (Manual) Seg Neutrophils # Seg Neutrophils # Man Lymphocytes # (Manual) Monocytes # (Manual) Basophils # (Manual) Percent Retic PT INR APTT Heparin Anti-Xa Level POC ABG pH POC ABG pCO2 POC ABG pO2 Sodium 156 H Potassium Chloride 114.7 H Carbon Dioxide BUN 33 H Creatinine Glucose 169 H POC Glucose 330 H 146 H Calcium Phosphorus Iron TIBC Lactate Dehydrogenase Total Creatine Kinase NT-Pro-B Natriuret Pep Total Protein Albumin Ndsan-9-Yekulthla Dmsaz-1-Ikwozwxsc Beta Globulins PEP Interpretation Cholesterol LDL Cholesterol Direct Vitamin B12 Urine WBC (Auto) Urine Creatinine Crossmatch 04/08/16 04/08/16 04/08/16 07:34 10:28 10:28 WBC RBC Hgb Hct MCV MCH MCHC RDW Plt Count Lymph % (Auto) [place] % (Auto) Lymph # [place] # Baso # Seg Neutrophils % Seg Neuts % (Manual) Lymphocytes % (Manual) Monocytes % (Manual) Seg Neutrophils # Seg Neutrophils # Man Lymphocytes # (Manual) Monocytes # (Manual) Basophils # (Manual) Percent Retic PT 15.5 H INR 1.24 H APTT Heparin Anti-Xa Level 0.24 L POC ABG pH POC ABG pCO2 POC ABG pO2 Sodium Potassium Chloride Carbon Dioxide BUN Creatinine Glucose POC Glucose 232 H Calcium Phosphorus Iron TIBC Lactate Dehydrogenase Total Creatine Kinase NT-Pro-B Natriuret Pep Total Protein Albumin Hpygr-5-Acmvaqfwe Hcxmt-1-Cfxnrhkos Beta Globulins PEP Interpretation Cholesterol LDL Cholesterol Direct Vitamin B12 Urine WBC (Auto) Urine Creatinine Crossmatch 04/08/16 04/08/16 04/09/16 11:36 15:38 00:01 WBC RBC Hgb Hct MCV MCH MCHC RDW Plt Count Lymph % (Auto) [place] % (Auto) Lymph # [place] # Baso # Seg Neutrophils % Seg Neuts % (Manual) Lymphocytes % (Manual) Monocytes % (Manual) Seg Neutrophils # Seg Neutrophils # Man Lymphocytes # (Manual) Monocytes # (Manual) Basophils # (Manual) Percent Retic PT INR APTT Heparin Anti-Xa Level POC ABG pH POC ABG pCO2 POC ABG pO2 Sodium Potassium Chloride Carbon Dioxide BUN Creatinine Glucose POC Glucose 193 H 163 H 180 H Calcium Phosphorus Iron TIBC Lactate Dehydrogenase Total Creatine Kinase NT-Pro-B Natriuret Pep Total Protein Albumin Wtdns-1-Mhbcmwhkd Tkeqr-0-Kshmtsaww Beta Globulins PEP Interpretation Cholesterol LDL Cholesterol Direct Vitamin B12 Urine WBC (Auto) Urine Creatinine Crossmatch 04/09/16 04/09/16 04/09/16 06:17 06:42 06:42 WBC RBC Hgb Hct MCV MCH MCHC RDW Plt Count Lymph % (Auto) [place] % (Auto) Lymph # [place] # Baso # Seg Neutrophils % Seg Neuts % (Manual) Lymphocytes % (Manual) Monocytes % (Manual) Seg Neutrophils # Seg Neutrophils # Man Lymphocytes # (Manual) Monocytes # (Manual) Basophils # (Manual) Percent Retic PT 17.4 H INR 1.43 H APTT Heparin Anti-Xa Level POC ABG pH POC ABG pCO2 POC ABG pO2 Sodium 153 H Potassium Chloride 113.2 H Carbon Dioxide BUN 29 H Creatinine Glucose 301 H POC Glucose 249 H Calcium 8.3 L Phosphorus Iron TIBC Lactate Dehydrogenase Total Creatine Kinase NT-Pro-B Natriuret Pep Total Protein Albumin Iupzq-3-Bhyfamoun Dnxno-0-Geyhlltvv Beta Globulins PEP Interpretation Cholesterol LDL Cholesterol Direct Vitamin B12 Urine WBC (Auto) Urine Creatinine Crossmatch 04/09/16 04/09/16 04/09/16 07:37 11:26 15:45 WBC RBC Hgb Hct MCV MCH MCHC RDW Plt Count Lymph % (Auto) [place] % (Auto) Lymph # [place] # Baso # Seg Neutrophils % Seg Neuts % (Manual) Lymphocytes % (Manual) Monocytes % (Manual) Seg Neutrophils # Seg Neutrophils # Man Lymphocytes # (Manual) Monocytes # (Manual) Basophils # (Manual) Percent Retic PT INR APTT Heparin Anti-Xa Level POC ABG pH POC ABG pCO2 POC ABG pO2 Sodium Potassium Chloride Carbon Dioxide BUN Creatinine Glucose POC Glucose 283 H 306 H 354 H Calcium Phosphorus Iron TIBC Lactate Dehydrogenase Total Creatine Kinase NT-Pro-B Natriuret Pep Total Protein Albumin Spjmc-8-Bxwmtvncj Htxod-3-Imspqxbft Beta Globulins PEP Interpretation Cholesterol LDL Cholesterol Direct Vitamin B12 Urine WBC (Auto) Urine Creatinine Crossmatch 04/10/16 04/10/16 04/10/16 00:53 07:15 07:34 WBC RBC Hgb 11.3 L Hct MCV MCH MCHC RDW Plt Count Lymph % (Auto) [place] % (Auto) Lymph # [place] # Baso # Seg Neutrophils % Seg Neuts % (Manual) Lymphocytes % (Manual) Monocytes % (Manual) Seg Neutrophils # Seg Neutrophils # Man Lymphocytes # (Manual) Monocytes # (Manual) Basophils # (Manual) Percent Retic PT INR APTT Heparin Anti-Xa Level POC ABG pH POC ABG pCO2 POC ABG pO2 Sodium Potassium Chloride Carbon Dioxide BUN Creatinine Glucose POC Glucose 323 H 311 H Calcium Phosphorus Iron TIBC Lactate Dehydrogenase Total Creatine Kinase NT-Pro-B Natriuret Pep Total Protein Albumin Xfwkv-5-Tdrhjviyd Uprql-0-Eysgfzjik Beta Globulins PEP Interpretation Cholesterol LDL Cholesterol Direct Vitamin B12 Urine WBC (Auto) Urine Creatinine Crossmatch 04/10/16 04/10/16 04/10/16 07:34 07:34 11:25 WBC RBC Hgb Hct MCV MCH MCHC RDW Plt Count Lymph % (Auto) [place] % (Auto) Lymph # [place] # Baso # Seg Neutrophils % Seg Neuts % (Manual) Lymphocytes % (Manual) Monocytes % (Manual) Seg Neutrophils # Seg Neutrophils # Man Lymphocytes # (Manual) Monocytes # (Manual) Basophils # (Manual) Percent Retic PT 17.3 H INR 1.42 H APTT Heparin Anti-Xa Level POC ABG pH POC ABG pCO2 POC ABG pO2 Sodium 158 H Potassium Chloride 118.6 H Carbon Dioxide BUN 30 H Creatinine Glucose 330 H POC Glucose 335 H Calcium 8.3 L Phosphorus Iron TIBC Lactate Dehydrogenase Total Creatine Kinase NT-Pro-B Natriuret Pep Total Protein Albumin Ombwo-6-Ldebyyvih Tvaxz-1-Qmocbdbvt Beta Globulins PEP Interpretation Cholesterol LDL Cholesterol Direct Vitamin B12 Urine WBC (Auto) Urine Creatinine Crossmatch 04/10/16 04/11/16 04/11/16 16:21 00:29 07:47 WBC RBC Hgb Hct MCV MCH MCHC RDW Plt Count Lymph % (Auto) [place] % (Auto) Lymph # [place] # Baso # Seg Neutrophils % Seg Neuts % (Manual) Lymphocytes % (Manual) Monocytes % (Manual) Seg Neutrophils # Seg Neutrophils # Man Lymphocytes # (Manual) Monocytes # (Manual) Basophils # (Manual) Percent Retic PT 18.4 H INR 1.53 H APTT Heparin Anti-Xa Level POC ABG pH POC ABG pCO2 POC ABG pO2 Sodium Potassium Chloride Carbon Dioxide BUN Creatinine Glucose POC Glucose 230 H 162 H Calcium Phosphorus Iron TIBC Lactate Dehydrogenase Total Creatine Kinase NT-Pro-B Natriuret Pep Total Protein Albumin Vjhcw-4-Gttziyeeo Zmeil-4-Rhibfcwus Beta Globulins PEP Interpretation Cholesterol LDL Cholesterol Direct Vitamin B12 Urine WBC (Auto) Urine Creatinine Crossmatch 04/11/16 04/11/16 04/12/16 07:47 11:22 04:54 WBC RBC Hgb 11.0 L Hct 35.0 L MCV MCH MCHC RDW Plt Count Lymph % (Auto) [place] % (Auto) Lymph # [place] # Baso # Seg Neutrophils % Seg Neuts % (Manual) Lymphocytes % (Manual) Monocytes % (Manual) Seg Neutrophils # Seg Neutrophils # Man Lymphocytes # (Manual) Monocytes # (Manual) Basophils # (Manual) Percent Retic PT INR APTT Heparin Anti-Xa Level POC ABG pH POC ABG pCO2 POC ABG pO2 Sodium 155 H Potassium Chloride 114.5 H Carbon Dioxide BUN 23 H Creatinine Glucose 157 H POC Glucose 229 H Calcium Phosphorus Iron TIBC Lactate Dehydrogenase Total Creatine Kinase NT-Pro-B Natriuret Pep Total Protein Albumin Cgprj-8-Stxigokwh Rleak-9-Ldjbyyjsz Beta Globulins PEP Interpretation Cholesterol LDL Cholesterol Direct Vitamin B12 Urine WBC (Auto) Urine Creatinine Crossmatch 04/12/16 04/12/16 04/12/16 04:54 04:54 05:57 WBC RBC Hgb Hct MCV MCH MCHC RDW Plt Count Lymph % (Auto) [place] % (Auto) Lymph # [place] # Baso # Seg Neutrophils % Seg Neuts % (Manual) Lymphocytes % (Manual) Monocytes % (Manual) Seg Neutrophils # Seg Neutrophils # Man Lymphocytes # (Manual) Monocytes # (Manual) Basophils # (Manual) Percent Retic PT 22.5 H INR 1.98 H APTT Heparin Anti-Xa Level 0.19 L POC ABG pH POC ABG pCO2 POC ABG pO2 Sodium 156 H Potassium Chloride 115.4 H Carbon Dioxide BUN 23 H Creatinine Glucose 143 H POC Glucose 194 H Calcium Phosphorus Iron TIBC Lactate Dehydrogenase Total Creatine Kinase NT-Pro-B Natriuret Pep Total Protein Albumin Somaq-9-Jmmrkjwtb Iwckv-1-Aobbdzwqz Beta Globulins PEP Interpretation Cholesterol LDL Cholesterol Direct Vitamin B12 Urine WBC (Auto) Urine Creatinine Crossmatch 04/12/16 04/12/16 04/12/16 12:34 19:01 23:30 WBC RBC Hgb Hct MCV MCH MCHC RDW Plt Count Lymph % (Auto) [place] % (Auto) Lymph # [place] # Baso # Seg Neutrophils % Seg Neuts % (Manual) Lymphocytes % (Manual) Monocytes % (Manual) Seg Neutrophils # Seg Neutrophils # Man Lymphocytes # (Manual) Monocytes # (Manual) Basophils # (Manual) Percent Retic PT INR APTT Heparin Anti-Xa Level POC ABG pH POC ABG pCO2 POC ABG pO2 Sodium Potassium Chloride Carbon Dioxide BUN Creatinine Glucose POC Glucose 291 H 235 H 154 H Calcium Phosphorus Iron TIBC Lactate Dehydrogenase Total Creatine Kinase NT-Pro-B Natriuret Pep Total Protein Albumin Yzvwp-4-Hhwyyvgmb Nxoaz-6-Xoysddsny Beta Globulins PEP Interpretation Cholesterol LDL Cholesterol Direct Vitamin B12 Urine WBC (Auto) Urine Creatinine Crossmatch 04/13/16 04/13/16 04/13/16 05:16 05:16 05:28 WBC RBC Hgb Hct MCV MCH MCHC RDW Plt Count Lymph % (Auto) [place] % (Auto) Lymph # [place] # Baso # Seg Neutrophils % Seg Neuts % (Manual) Lymphocytes % (Manual) Monocytes % (Manual) Seg Neutrophils # Seg Neutrophils # Man Lymphocytes # (Manual) Monocytes # (Manual) Basophils # (Manual) Percent Retic PT 27.0 H INR 2.49 H APTT Heparin Anti-Xa Level 0.20 L POC ABG pH POC ABG pCO2 POC ABG pO2 Sodium 150 H Potassium Chloride 110.5 H Carbon Dioxide BUN 21 H Creatinine Glucose 159 H POC Glucose 177 H Calcium Phosphorus Iron TIBC Lactate Dehydrogenase Total Creatine Kinase NT-Pro-B Natriuret Pep Total Protein Albumin Zxbot-0-Yecjdsmcg Swhmx-2-Bivykqeyc Beta Globulins PEP Interpretation Cholesterol LDL Cholesterol Direct Vitamin B12 Urine WBC (Auto) Urine Creatinine Crossmatch 04/13/16 04/13/16 04/14/16 11:30 17:54 00:44 WBC RBC Hgb Hct MCV MCH MCHC RDW Plt Count Lymph % (Auto) [place] % (Auto) Lymph # [place] # Baso # Seg Neutrophils % Seg Neuts % (Manual) Lymphocytes % (Manual) Monocytes % (Manual) Seg Neutrophils # Seg Neutrophils # Man Lymphocytes # (Manual) Monocytes # (Manual) Basophils # (Manual) Percent Retic PT INR APTT Heparin Anti-Xa Level POC ABG pH POC ABG pCO2 POC ABG pO2 Sodium Potassium Chloride Carbon Dioxide BUN Creatinine Glucose POC Glucose 181 H 251 H 237 H Calcium Phosphorus Iron TIBC Lactate Dehydrogenase Total Creatine Kinase NT-Pro-B Natriuret Pep Total Protein Albumin Zrudp-9-Nbhtlmibq Ncznj-9-Wdartsfim Beta Globulins PEP Interpretation Cholesterol LDL Cholesterol Direct Vitamin B12 Urine WBC (Auto) Urine Creatinine Crossmatch 04/14/16 04/14/16 04/14/16 05:00 05:42 05:42 WBC RBC Hgb Hct MCV MCH MCHC RDW Plt Count Lymph % (Auto) [place] % (Auto) Lymph # [place] # Baso # Seg Neutrophils % Seg Neuts % (Manual) Lymphocytes % (Manual) Monocytes % (Manual) Seg Neutrophils # Seg Neutrophils # Man Lymphocytes # (Manual) Monocytes # (Manual) Basophils # (Manual) Percent Retic PT 30.3 H INR 2.88 H APTT Heparin Anti-Xa Level 0.27 L POC ABG pH POC ABG pCO2 POC ABG pO2 Sodium Potassium 3.5 L Chloride Carbon Dioxide BUN Creatinine Glucose 160 H POC Glucose Calcium 8.2 L Phosphorus Iron TIBC Lactate Dehydrogenase Total Creatine Kinase NT-Pro-B Natriuret Pep Total Protein Albumin Mpyrg-7-Htvrbqtyw Ushnr-6-Clpzpdpco Beta Globulins PEP Interpretation Cholesterol LDL Cholesterol Direct Vitamin B12 Urine WBC (Auto) Urine Creatinine Crossmatch 04/14/16 04/14/16 04/14/16 06:02 06:16 09:18 WBC 12.3 H RBC Hgb 11.4 L Hct MCV 82 L MCH 26 L MCHC RDW Plt Count Lymph % (Auto) [place] % (Auto) Lymph # [place] # Baso # Seg Neutrophils % Seg Neuts % (Manual) Lymphocytes % (Manual) Monocytes % (Manual) Seg Neutrophils # Seg Neutrophils # Man Lymphocytes # (Manual) Monocytes # (Manual) Basophils # (Manual) Percent Retic PT INR APTT Heparin Anti-Xa Level POC ABG pH POC ABG pCO2 POC ABG pO2 Sodium Potassium Chloride Carbon Dioxide BUN Creatinine Glucose POC Glucose 156 H 164 H Calcium Phosphorus Iron TIBC Lactate Dehydrogenase Total Creatine Kinase NT-Pro-B Natriuret Pep Total Protein Albumin Wqxlr-6-Mcagyefca Ghcyi-4-Hotnahmdf Beta Globulins PEP Interpretation Cholesterol LDL Cholesterol Direct Vitamin B12 Urine WBC (Auto) Urine Creatinine Crossmatch 04/14/16 04/15/1604/15/16 13:58 01:07 06:04 WBC RBC Hgb Hct MCV MCH MCHC RDW Plt Count Lymph % (Auto) [place] % (Auto) Lymph # [place] # Baso # Seg Neutrophils % Seg Neuts % (Manual) Lymphocytes % (Manual) Monocytes % (Manual) Seg Neutrophils # Seg Neutrophils # Man Lymphocytes # (Manual) Monocytes # (Manual) Basophils # (Manual) Percent Retic PT 24.9 H INR 2.25 H APTT Heparin Anti-Xa Level POC ABG pH POC ABG pCO2 POC ABG pO2 Sodium Potassium Chloride Carbon Dioxide BUN Creatinine Glucose POC Glucose 109 H 154 H Calcium Phosphorus Iron TIBC Lactate Dehydrogenase Total Creatine Kinase NT-Pro-B Natriuret Pep Total Protein Albumin Wtktn-1-Mwlsrfrxw Hvojj-0-Janslkfcl Beta Globulins PEP Interpretation Cholesterol LDL Cholesterol Direct Vitamin B12 Urine WBC (Auto) Urine Creatinine Crossmatch 04/15/16 04/15/16 04/16/16 06:08 12:41 00:38 WBC RBC Hgb Hct MCV MCH MCHC RDW Plt Count Lymph % (Auto) [place] % (Auto) Lymph # [place] # Baso # Seg Neutrophils % Seg Neuts % (Manual) Lymphocytes % (Manual) Monocytes % (Manual) Seg Neutrophils # Seg Neutrophils # Man Lymphocytes # (Manual) Monocytes # (Manual) Basophils # (Manual) Percent Retic PT INR APTT Heparin Anti-Xa Level POC ABG pH POC ABG pCO2 POC ABG pO2 Sodium Potassium Chloride Carbon Dioxide BUN Creatinine Glucose POC Glucose 165 H 223 H 216 H Calcium Phosphorus Iron TIBC Lactate Dehydrogenase Total Creatine Kinase NT-Pro-B Natriuret Pep Total Protein Albumin Dziui-0-Iufukfoim Avjbh-4-Tzcbhymlg Beta Globulins PEP Interpretation Cholesterol LDL Cholesterol Direct Vitamin B12 Urine WBC (Auto) Urine Creatinine Crossmatch 04/16/16 04/16/16 04/16/16 05:45 07:09 14:00 WBC RBC Hgb Hct MCV MCH MCHC RDW Plt Count Lymph % (Auto) [place] % (Auto) Lymph # [place] # Baso # Seg Neutrophils % Seg Neuts % (Manual) Lymphocytes % (Manual) Monocytes % (Manual) Seg Neutrophils # Seg Neutrophils # Man Lymphocytes # (Manual) Monocytes # (Manual) Basophils # (Manual) Percent Retic PT 19.4 H INR 1.64 H APTT Heparin Anti-Xa Level 0.10 L POC ABG pH POC ABG pCO2 POC ABG pO2 Sodium Potassium Chloride Carbon Dioxide BUN Creatinine Glucose POC Glucose 207 H 69 L Calcium Phosphorus Iron TIBC Lactate Dehydrogenase Total Creatine Kinase NT-Pro-B Natriuret Pep Total Protein Albumin Bcvih-4-Xjwjgtorl Seezg-4-Hkecrvpwb Beta Globulins PEP Interpretation Cholesterol LDL Cholesterol Direct Vitamin B12 Urine WBC (Auto) Urine Creatinine Crossmatch 04/16/16 04/16/16 04/16/16 17:40 17:52 19:38 WBC RBC Hgb Hct MCV MCH MCHC RDW Plt Count Lymph % (Auto) [place] % (Auto) Lymph # [place] # Baso # Seg Neutrophils % Seg Neuts % (Manual) Lymphocytes % (Manual) Monocytes % (Manual) Seg Neutrophils # Seg Neutrophils # Man Lymphocytes # (Manual) Monocytes # (Manual) Basophils # (Manual) Percent Retic PT INR APTT Heparin Anti-Xa Level 0.26 L POC ABG pH 7.543 H 7.488 H POC ABG pCO2 26.3 L 30.3 L POC ABG pO2 55 L 203 H Sodium Potassium Chloride Carbon Dioxide BUN Creatinine Glucose POC Glucose Calcium Phosphorus Iron TIBC Lactate Dehydrogenase Total Creatine Kinase NT-Pro-B Natriuret Pep Total Protein Albumin Uwpwh-6-Eubnhlkai Objkk-9-Ffwblnaxh Beta Globulins PEP Interpretation Cholesterol LDL Cholesterol Direct Vitamin B12 Urine WBC (Auto) Urine Creatinine Crossmatch 04/17/16 04/17/16 04/17/16 00:04 05:10 05:36 WBC RBC Hgb Hct MCV MCH MCHC RDW Plt Count Lymph % (Auto) [place] % (Auto) Lymph # [place] # Baso # Seg Neutrophils % Seg Neuts % (Manual) Lymphocytes % (Manual) Monocytes % (Manual) Seg Neutrophils # Seg Neutrophils # Man Lymphocytes # (Manual) Monocytes # (Manual) Basophils # (Manual) Percent Retic PT INR APTT Heparin Anti-Xa Level POC ABG pH POC ABG pCO2 32.7 L POC ABG pO2 68 L Sodium Potassium Chloride Carbon Dioxide BUN Creatinine Glucose POC Glucose 113 H 161 H Calcium Phosphorus Iron TIBC Lactate Dehydrogenase Total Creatine Kinase NT-Pro-B Natriuret Pep Total Protein Albumin Fqwtw-0-Bxukwnprd Jtcpv-0-Envhdoouj Beta Globulins PEP Interpretation Cholesterol LDL Cholesterol Direct Vitamin B12 Urine WBC (Auto) Urine Creatinine Crossmatch 04/17/16 04/17/16 04/17/16 05:41 08:37 11:46 WBC RBC Hgb Hct MCV MCH MCHC RDW Plt Count Lymph % (Auto) [place] % (Auto) Lymph # [place] # Baso # Seg Neutrophils % Seg Neuts % (Manual) Lymphocytes % (Manual) Monocytes % (Manual) Seg Neutrophils # Seg Neutrophils # Man Lymphocytes # (Manual) Monocytes # (Manual) Basophils # (Manual) Percent Retic PT 17.4 H INR 1.43 H APTT Heparin Anti-Xa Level POC ABG pH POC ABG pCO2 POC ABG pO2 Sodium Potassium Chloride Carbon Dioxide BUN Creatinine Glucose POC Glucose 154 H 138 H Calcium Phosphorus Iron TIBC Lactate Dehydrogenase Total Creatine Kinase NT-Pro-B Natriuret Pep Total Protein Albumin Rfupw-0-Lyrqwulcb Kijlt-4-Cmveyknpg Beta Globulins PEP Interpretation Cholesterol LDL Cholesterol Direct Vitamin B12 Urine WBC (Auto) Urine Creatinine Crossmatch 04/17/16 04/17/16 04/17/16 12:17 12:17 21:20 WBC 16.5 H RBC 3.31 L Hgb 8.8 L Hct 26.9 L MCV 81 L MCH 27 L MCHC RDW 15.5 H Plt Count Lymph % (Auto) [place] % (Auto) Lymph # [place] # Baso # Seg Neutrophils % Seg Neuts % (Manual) Lymphocytes % (Manual) 3.0 L Monocytes % (Manual) Seg Neutrophils # Seg Neutrophils # Man 10.1 H Lymphocytes # (Manual) 0.5 L Monocytes # (Manual) Basophils # (Manual) Percent Retic PT INR APTT Heparin Anti-Xa Level 0.14 L POC ABG pH POC ABG pCO2 POC ABG pO2 Sodium Potassium Chloride Carbon Dioxide 21 L BUN 38 H Creatinine 1.8 H D Glucose 131 H POC Glucose Calcium 7.6 L Phosphorus Iron TIBC Lactate Dehydrogenase Total Creatine Kinase NT-Pro-B Natriuret Pep Total Protein Albumin Sxnqf-9-Gibsjdmnr Yabri-6-Oaaigqxvr Beta Globulins PEP Interpretation Cholesterol LDL Cholesterol Direct Vitamin B12 Urine WBC (Auto) Urine Creatinine Crossmatch 04/17/16 04/17/16 04/18/16 23:38 23:41 00:21 WBC RBC Hgb Hct MCV MCH MCHC RDW Plt Count Lymph % (Auto) [place] % (Auto) Lymph # [place] # Baso # Seg Neutrophils % Seg Neuts % (Manual) Lymphocytes % (Manual) Monocytes % (Manual) Seg Neutrophils # Seg Neutrophils # Man Lymphocytes # (Manual) Monocytes # (Manual) Basophils # (Manual) Percent Retic PT INR APTT Heparin Anti-Xa Level POC ABG pH POC ABG pCO2 POC ABG pO2 Sodium Potassium Chloride Carbon Dioxide BUN Creatinine Glucose POC Glucose < 40 L < 40 L 223 H Calcium Phosphorus Iron TIBC Lactate Dehydrogenase Total Creatine Kinase NT-Pro-B Natriuret Pep Total Protein Albumin Foacg-6-Qkkehweph Vdksi-0-Waqfcekjx Beta Globulins PEP Interpretation Cholesterol LDL Cholesterol Direct Vitamin B12 Urine WBC (Auto) Urine Creatinine Crossmatch 04/18/16 04/18/16 04/18/16 05:01 05:20 05:20 WBC 17.6 H RBC 3.44 L Hgb 9.1 L Hct 27.8 L MCV 81 L MCH 26 L MCHC RDW 15.5 H Plt Count Lymph % (Auto) 2.7 L [place] % (Auto) 8.3 H Lymph # 0.5 L [place] # 1.5 H Baso # Seg Neutrophils % 88.4 H Seg Neuts % (Manual) Lymphocytes % (Manual) Monocytes % (Manual) Seg Neutrophils # 15.6 H Seg Neutrophils # Man Lymphocytes # (Manual) Monocytes # (Manual) Basophils # (Manual) Percent Retic PT 17.4 H INR 1.43 H APTT Heparin Anti-Xa Level POC ABG pH 7.528 H POC ABG pCO2 27.9 L POC ABG pO2 Sodium Potassium Chloride Carbon Dioxide BUN Creatinine Glucose POC Glucose Calcium Phosphorus Iron TIBC Lactate Dehydrogenase Total Creatine Kinase NT-Pro-B Natriuret Pep Total Protein Albumin Ohefo-3-Lttnlgapi Ypokw-7-Qoiouwybv Beta Globulins PEP Interpretation Cholesterol LDL Cholesterol Direct Vitamin B12 Urine WBC (Auto) Urine Creatinine Crossmatch 04/18/16 04/18/16 04/18/16 05:20 05:31 06:50 WBC RBC Hgb Hct MCV MCH MCHC RDW Plt Count Lymph % (Auto) [place] % (Auto) Lymph # [place] # Baso # Seg Neutrophils % Seg Neuts % (Manual) Lymphocytes % (Manual) Monocytes % (Manual) Seg Neutrophils # Seg Neutrophils # Man Lymphocytes # (Manual) Monocytes # (Manual) Basophils # (Manual) Percent Retic PT INR APTT Heparin Anti-Xa Level POC ABG pH POC ABG pCO2 POC ABG pO2 Sodium Potassium 3.4 L Chloride Carbon Dioxide 21 L BUN 22 H Creatinine Glucose POC Glucose 61 L 124 H Calcium 8.0 L Phosphorus Iron TIBC Lactate Dehydrogenase Total Creatine Kinase NT-Pro-B Natriuret Pep Total Protein Albumin Tpsiv-8-Vbbtjgwms Riunn-0-Uinbvdyil Beta Globulins PEP Interpretation Cholesterol LDL Cholesterol Direct Vitamin B12 Urine WBC (Auto) Urine Creatinine Crossmatch 04/18/16 04/18/16 04/19/16 17:42 22:40 00:31 WBC RBC Hgb Hct MCV MCH MCHC RDW Plt Count Lymph % (Auto) [place] % (Auto) Lymph # [place] # Baso # Seg Neutrophils % Seg Neuts % (Manual) Lymphocytes % (Manual) Monocytes % (Manual) Seg Neutrophils # Seg Neutrophils # Man Lymphocytes # (Manual) Monocytes # (Manual) Basophils # (Manual) Percent Retic PT INR APTT Heparin Anti-Xa Level < 0.10 L POC ABG pH POC ABG pCO2 POC ABG pO2 Sodium Potassium Chloride Carbon Dioxide BUN Creatinine Glucose POC Glucose 159 H 134 H Calcium Phosphorus Iron TIBC Lactate Dehydrogenase Total Creatine Kinase NT-Pro-B Natriuret Pep Total Protein Albumin Qehph-6-Vmnlunyyk Srseh-8-Xkwegaqom Beta Globulins PEP Interpretation Cholesterol LDL Cholesterol Direct Vitamin B12 Urine WBC (Auto) Urine Creatinine Crossmatch 04/19/16 04/19/16 04/19/16 04:18 04:18 04:25 WBC 19.0 H RBC 3.58 L Hgb 9.3 L Hct 28.8 L MCV 80 L MCH 26 L MCHC RDW 15.5 H Plt Count Lymph % (Auto) 2.8 L [place] % (Auto) 7.4 H Lymph # 0.5 L [place] # 1.4 H Baso # Seg Neutrophils % 89.4 H Seg Neuts % (Manual) Lymphocytes % (Manual) Monocytes % (Manual) Seg Neutrophils # 17.0 H Seg Neutrophils # Man Lymphocytes # (Manual) Monocytes # (Manual) Basophils # (Manual) Percent Retic PT INR APTT Heparin Anti-Xa Level POC ABG pH 7.527 H POC ABG pCO2 27.1 L POC ABG pO2 Sodium Potassium Chloride Carbon Dioxide BUN 22 H Creatinine Glucose 215 H POC Glucose Calcium 8.0 L Phosphorus Iron TIBC Lactate Dehydrogenase Total Creatine Kinase NT-Pro-B Natriuret Pep Total Protein Albumin Sadoy-4-Xcyyoyfxw Aqgtg-5-Glewmuzeh Beta Globulins PEP Interpretation Cholesterol LDL Cholesterol Direct Vitamin B12 Urine WBC (Auto) Urine Creatinine Crossmatch 04/19/16 04/19/16 04/19/16 05:45 08:10 14:08 WBC RBC Hgb Hct MCV MCH MCHC RDW Plt Count Lymph % (Auto) [place] % (Auto) Lymph # [place] # Baso # Seg Neutrophils % Seg Neuts % (Manual) Lymphocytes % (Manual) Monocytes % (Manual) Seg Neutrophils # Seg Neutrophils # Man Lymphocytes # (Manual) Monocytes # (Manual) Basophils # (Manual) Percent Retic PT 22.1 H INR 1.93 H APTT Heparin Anti-Xa Level 0.17 L POC ABG pH POC ABG pCO2 POC ABG pO2 Sodium Potassium Chloride Carbon Dioxide BUN Creatinine Glucose POC Glucose 196 H 318 H Calcium Phosphorus Iron TIBC Lactate Dehydrogenase Total Creatine Kinase NT-Pro-B Natriuret Pep Total Protein Albumin Ydxzh-9-Bywftaegq Ysshu-1-Kstwoqkvw Beta Globulins PEP Interpretation Cholesterol LDL Cholesterol Direct Vitamin B12 Urine WBC (Auto) Urine Creatinine Crossmatch 04/19/16 04/20/16 04/20/16 17:27 03:55 03:55 WBC 18.5 H RBC 3.19 L Hgb 8.4 L Hct 25.7 L MCV 80 L MCH 26 L MCHC RDW 15.9 H Plt Count Lymph % (Auto) 4.3 L [place] % (Auto) 10.1 H Lymph # 0.8 L [place] # 1.9 H Baso # Seg Neutrophils % 85.2 H Seg Neuts % (Manual) Lymphocytes % (Manual) Monocytes % (Manual) Seg Neutrophils # 15.8 H Seg Neutrophils # Man Lymphocytes # (Manual) Monocytes # (Manual) Basophils # (Manual) Percent Retic PT 22.0 H INR 1.92 H APTT Heparin Anti-Xa Level 0.14 L POC ABG pH POC ABG pCO2 POC ABG pO2 Sodium Potassium Chloride Carbon Dioxide BUN Creatinine Glucose POC Glucose 230 H Calcium Phosphorus Iron TIBC Lactate Dehydrogenase Total Creatine Kinase NT-Pro-B Natriuret Pep Total Protein Albumin Oppdq-8-Wvpnyavdy Xisso-4-Agxiqmrxp Beta Globulins PEP Interpretation Cholesterol LDL Cholesterol Direct Vitamin B12 Urine WBC (Auto) Urine Creatinine Crossmatch 04/20/16 04/20/16 04/20/16 03:55 04:16 05:52 WBC RBC Hgb Hct MCV MCH MCHC RDW Plt Count Lymph % (Auto) [place] % (Auto) Lymph # [place] # Baso # Seg Neutrophils % Seg Neuts % (Manual) Lymphocytes % (Manual) Monocytes % (Manual) Seg Neutrophils # Seg Neutrophils # Man Lymphocytes # (Manual) Monocytes # (Manual) Basophils # (Manual) Percent Retic PT INR APTT Heparin Anti-Xa Level POC ABG pH 7.474 H POC ABG pCO2 26.5 L POC ABG pO2 Sodium Potassium Chloride Carbon Dioxide 18 L BUN 38 H Creatinine 2.7 H D Glucose 159 H POC Glucose 214 H Calcium 8.0 L Phosphorus Iron TIBC Lactate Dehydrogenase Total Creatine Kinase NT-Pro-B Natriuret Pep Total Protein Albumin Rryja-6-Btaxuuzxq Qzjpw-1-Ijylcxiwt Beta Globulins PEP Interpretation Cholesterol LDL Cholesterol Direct Vitamin B12 Urine WBC (Auto) Urine Creatinine Crossmatch 04/20/16 04/20/16 04/20/16 10:32 11:27 11:50 WBC RBC Hgb Hct MCV MCH MCHC RDW Plt Count Lymph % (Auto) [place] % (Auto) Lymph # [place] # Baso # Seg Neutrophils % Seg Neuts % (Manual) Lymphocytes % (Manual) Monocytes % (Manual) Seg Neutrophils # Seg Neutrophils # Man Lymphocytes # (Manual) Monocytes # (Manual) Basophils # (Manual) Percent Retic PT INR APTT Heparin Anti-Xa Level POC ABG pH POC ABG pCO2 POC ABG pO2 Sodium Potassium Chloride Carbon Dioxide 20 L BUN 45 H Creatinine 3.0 H Glucose 215 H POC Glucose 248 H Calcium 8.0 L Phosphorus Iron TIBC Lactate Dehydrogenase Total Creatine Kinase NT-Pro-B Natriuret Pep Total Protein Albumin Wbpju-4-Gsykzusfz Ypwvh-9-Bqzlkrdbv Beta Globulins PEP Interpretation Cholesterol LDL Cholesterol Direct Vitamin B12 Urine WBC (Auto) Urine Creatinine 85.5 H Crossmatch 04/20/16 04/21/16 04/21/16 16:59 00:13 04:29 WBC RBC Hgb Hct MCV MCH MCHC RDW Plt Count Lymph % (Auto) [place] % (Auto) Lymph # [place] # Baso # Seg Neutrophils % Seg Neuts % (Manual) Lymphocytes % (Manual) Monocytes % (Manual) Seg Neutrophils # Seg Neutrophils # Man Lymphocytes # (Manual) Monocytes # (Manual) Basophils # (Manual) Percent Retic PT 18.1 H INR 1.50 H APTT Heparin Anti-Xa Level 0.10 L POC ABG pH POC ABG pCO2 POC ABG pO2 Sodium Potassium Chloride Carbon Dioxide BUN Creatinine Glucose POC Glucose 312 H 287 H Calcium Phosphorus Iron TIBC Lactate Dehydrogenase Total Creatine Kinase NT-Pro-B Natriuret Pep Total Protein Albumin Sppir-2-Iunamdpwm Dbyqn-4-Uosgsumlh Beta Globulins PEP Interpretation Cholesterol LDL Cholesterol Direct Vitamin B12 Urine WBC (Auto) Urine Creatinine Crossmatch 04/21/16 04/21/16 04/21/16 04:29 04:29 04:55 WBC 15.4 H RBC 3.24 L Hgb 8.4 L Hct 25.6 L MCV 79 L MCH 26 L MCHC RDW 16.1 H Plt Count Lymph % (Auto) 6.8 L [place] % (Auto) 12.9 H Lymph # 1.0 L [place] # 2.0 H Baso # Seg Neutrophils % 79.8 H Seg Neuts % (Manual) Lymphocytes % (Manual) Monocytes % (Manual) Seg Neutrophils # 12.3 H Seg Neutrophils # Man Lymphocytes # (Manual) Monocytes # (Manual) Basophils # (Manual) Percent Retic PT INR APTT Heparin Anti-Xa Level POC ABG pH 7.512 H POC ABG pCO2 25.4 L POC ABG pO2 Sodium 135 L Potassium Chloride Carbon Dioxide 18 L BUN 57 H Creatinine 3.9 H Glucose 202 H POC Glucose Calcium 8.0 L Phosphorus Iron TIBC Lactate Dehydrogenase Total Creatine Kinase NT-Pro-B Natriuret Pep Total Protein Albumin Eqwfc-3-Izqjtvwea Vdvom-9-Ptirtwivh Beta Globulins PEP Interpretation Cholesterol LDL Cholesterol Direct Vitamin B12 Urine WBC (Auto) Urine Creatinine Crossmatch 04/21/16 04/21/16 04/21/16 05:20 12:08 12:16 WBC RBC Hgb Hct MCV MCH MCHC RDW Plt Count Lymph % (Auto) [place] % (Auto) Lymph # [place] # Baso # Seg Neutrophils % Seg Neuts % (Manual) Lymphocytes % (Manual) Monocytes % (Manual) Seg Neutrophils # Seg Neutrophils # Man Lymphocytes # (Manual) Monocytes # (Manual) Basophils # (Manual) Percent Retic PT INR APTT Heparin Anti-Xa Level 0.16 L POC ABG pH POC ABG pCO2 POC ABG pO2 Sodium Potassium Chloride Carbon Dioxide BUN Creatinine Glucose POC Glucose 203 H 221 H Calcium Phosphorus Iron TIBC Lactate Dehydrogenase Total Creatine Kinase NT-Pro-B Natriuret Pep Total Protein Albumin [place]-6-Bohifbgmk Glbot-8-Utrenbnbu Beta Globulins PEP Interpretation Cholesterol LDL Cholesterol Direct Vitamin B12 Urine WBC (Auto) Urine Creatinine Crossmatch 04/21/16 04/22/16 04/22/16 17:22 05:01 05:20 WBC RBC Hgb Hct MCV MCH MCHC RDW Plt Count Lymph % (Auto) [place] % (Auto) Lymph # [place] # Baso # Seg Neutrophils % Seg Neuts % (Manual) Lymphocytes % (Manual) Monocytes % (Manual) Seg Neutrophils # Seg Neutrophils # Man Lymphocytes # (Manual) Monocytes # (Manual) Basophils # (Manual) Percent Retic PT 17.5 H INR 1.44 H APTT Heparin Anti-Xa Level POC ABG pH 7.460 H POC ABG pCO2 27.9 L POC ABG pO2 Sodium Potassium Chloride Carbon Dioxide BUN Creatinine Glucose POC Glucose 189 H Calcium Phosphorus Iron TIBC Lactate Dehydrogenase Total Creatine Kinase NT-Pro-B Natriuret Pep Total Protein Albumin Wixio-3-Xfxmhwuui Pywop-8-Lwixyofnr Beta Globulins PEP Interpretation Cholesterol LDL Cholesterol Direct Vitamin B12 Urine WBC (Auto) Urine Creatinine Crossmatch 04/22/16 04/22/16 04/22/16 05:43 06:40 08:08 WBC RBC Hgb Hct MCV MCH MCHC RDW Plt Count Lymph % (Auto) [place] % (Auto) Lymph # [place] # Baso # Seg Neutrophils % Seg Neuts % (Manual) Lymphocytes % (Manual) Monocytes % (Manual) Seg Neutrophils # Seg Neutrophils # Man Lymphocytes # (Manual) Monocytes # (Manual) Basophils # (Manual) Percent Retic PT INR APTT Heparin Anti-Xa Level POC ABG pH POC ABG pCO2 POC ABG pO2 Sodium Potassium Chloride Carbon Dioxide BUN Creatinine Glucose POC Glucose 56 L 136 H 134 H Calcium Phosphorus Iron TIBC Lactate Dehydrogenase Total Creatine Kinase NT-Pro-B Natriuret Pep Total Protein Albumin Xdued-9-Bfweghyhn Vqobz-8-Vatczwckh Beta Globulins PEP Interpretation Cholesterol LDL Cholesterol Direct Vitamin B12 Urine WBC (Auto) Urine Creatinine Crossmatch 04/22/16 04/22/16 04/22/16 11:18 12:10 18:17 WBC RBC Hgb Hct MCV MCH MCHC RDW Plt Count Lymph % (Auto) [place] % (Auto) Lymph # [place] # Baso # Seg Neutrophils % Seg Neuts % (Manual) Lymphocytes % (Manual) Monocytes % (Manual) Seg Neutrophils # Seg Neutrophils # Man Lymphocytes # (Manual) Monocytes # (Manual) Basophils # (Manual) Percent Retic PT INR APTT Heparin Anti-Xa Level 0.12 L POC ABG pH POC ABG pCO2 POC ABG pO2 Sodium Potassium Chloride Carbon Dioxide BUN Creatinine Glucose POC Glucose 142 H 227 H Calcium Phosphorus Iron TIBC Lactate Dehydrogenase Total Creatine Kinase NT-Pro-B Natriuret Pep Total Protein Albumin Lusvv-1-Nodaoqlzx Dymos-1-Mjqqaaxev Beta Globulins PEP Interpretation Cholesterol LDL Cholesterol Direct Vitamin B12 Urine WBC (Auto) Urine Creatinine Crossmatch 04/22/16 04/22/16 04/23/16 22:28 23:47 04:49 WBC RBC Hgb Hct MCV MCH MCHC RDW Plt Count Lymph % (Auto) [place] % (Auto) Lymph # [place] # Baso # Seg Neutrophils % Seg Neuts % (Manual) Lymphocytes % (Manual) Monocytes % (Manual) Seg Neutrophils # Seg Neutrophils # Man Lymphocytes # (Manual) Monocytes # (Manual) Basophils # (Manual) Percent Retic PT INR APTT Heparin Anti-Xa Level 0.16 L POC ABG pH POC ABG pCO2 32.6 L POC ABG pO2 122 H Sodium Potassium Chloride Carbon Dioxide BUN Creatinine Glucose POC Glucose 266 H Calcium Phosphorus Iron TIBC Lactate Dehydrogenase Total Creatine Kinase NT-Pro-B Natriuret Pep Total Protein Albumin Huodx-7-Xiravyyup Kyxyu-5-Xpstjthfn Beta Globulins PEP Interpretation Cholesterol LDL Cholesterol Direct Vitamin B12 Urine WBC (Auto) Urine Creatinine Crossmatch 04/23/16 04/23/16 04/23/16 05:41 08:05 08:34 WBC RBC Hgb Hct MCV MCH MCHC RDW Plt Count Lymph % (Auto) [place] % (Auto) Lymph # [place] # Baso # Seg Neutrophils % Seg Neuts % (Manual) Lymphocytes % (Manual) Monocytes % (Manual) Seg Neutrophils # Seg Neutrophils # Man Lymphocytes # (Manual) Monocytes # (Manual) Basophils # (Manual) Percent Retic PT INR APTT Heparin Anti-Xa Level POC ABG pH POC ABG pCO2 POC ABG pO2 Sodium Potassium Chloride 109.5 H Carbon Dioxide 21 L BUN 23 H Creatinine Glucose 227 H POC Glucose 227 H 224 H Calcium 8.2 L Phosphorus Iron TIBC Lactate Dehydrogenase Total Creatine Kinase NT-Pro-B Natriuret Pep Total Protein Albumin Nhvlg-9-Jijwrxsus Mgjyy-8-Foopztsea Beta Globulins PEP Interpretation Cholesterol LDL Cholesterol Direct Vitamin B12 Urine WBC (Auto) Urine Creatinine Crossmatch 04/23/16 04/23/16 04/23/16 10:45 11:37 22:49 WBC RBC Hgb Hct MCV MCH MCHC RDW Plt Count Lymph % (Auto) [place] % (Auto) Lymph # [place] # Baso # Seg Neutrophils % Seg Neuts % (Manual) Lymphocytes % (Manual) Monocytes % (Manual) Seg Neutrophils # Seg Neutrophils # Man Lymphocytes # (Manual) Monocytes # (Manual) Basophils # (Manual) Percent Retic PT 15.9 H INR 1.28 H APTT Heparin Anti-Xa Level 0.12 L POC ABG pH POC ABG pCO2 POC ABG pO2 Sodium Potassium Chloride Carbon Dioxide BUN Creatinine Glucose POC Glucose 256 H Calcium Phosphorus Iron TIBC Lactate Dehydrogenase Total Creatine Kinase NT-Pro-B Natriuret Pep Total Protein Albumin Swbcx-7-Aumvwplgh Ewgwe-7-Jvvbremlo Beta Globulins PEP Interpretation Cholesterol LDL Cholesterol Direct Vitamin B12 Urine WBC (Auto) Urine Creatinine Crossmatch 04/23/16 04/24/16 04/24/16 23:59 05:29 06:03 WBC RBC Hgb Hct MCV MCH MCHC RDW Plt Count Lymph % (Auto) [place] % (Auto) Lymph # [place] # Baso # Seg Neutrophils % Seg Neuts % (Manual) Lymphocytes % (Manual) Monocytes % (Manual) Seg Neutrophils # Seg Neutrophils # Man Lymphocytes # (Manual) Monocytes # (Manual) Basophils # (Manual) Percent Retic PT INR APTT Heparin Anti-Xa Level POC ABG pH 7.464 H POC ABG pCO2 32.4 L POC ABG pO2 115 H Sodium Potassium Chloride Carbon Dioxide BUN Creatinine Glucose POC Glucose 176 H 256 H Calcium Phosphorus Iron TIBC Lactate Dehydrogenase Total Creatine Kinase NT-Pro-B Natriuret Pep Total Protein Albumin Npwrn-6-Rvxxjboyc Yixon-6-Bofjqlhes Beta Globulins PEP Interpretation Cholesterol LDL Cholesterol Direct Vitamin B12 Urine WBC (Auto) Urine Creatinine Crossmatch 04/24/16 04/24/16 04/24/16 07:59 12:10 17:17 WBC RBC Hgb Hct MCV MCH MCHC RDW Plt Count Lymph % (Auto) [place] % (Auto) Lymph # [place] # Baso # Seg Neutrophils % Seg Neuts % (Manual) Lymphocytes % (Manual) Monocytes % (Manual) Seg Neutrophils # Seg Neutrophils # Man Lymphocytes # (Manual) Monocytes # (Manual) Basophils # (Manual) Percent Retic PT INR APTT Heparin Anti-Xa Level 0.18 L POC ABG pH POC ABG pCO2 POC ABG pO2 Sodium Potassium Chloride Carbon Dioxide BUN Creatinine Glucose POC Glucose 304 H 325 H Calcium Phosphorus Iron TIBC Lactate Dehydrogenase Total Creatine Kinase NT-Pro-B Natriuret Pep Total Protein Albumin Hizmr-9-Gnyigqbzm Ajaqa-1-Kmwwrezod Beta Globulins PEP Interpretation Cholesterol LDL Cholesterol Direct Vitamin B12 Urine WBC (Auto) Urine Creatinine Crossmatch 04/25/16 04/25/16 04/25/16 00:52 06:40 06:44 WBC RBC Hgb Hct MCV MCH MCHC RDW Plt Count Lymph % (Auto) [place] % (Auto) Lymph # [place] # Baso # Seg Neutrophils % Seg Neuts % (Manual) Lymphocytes % (Manual) Monocytes % (Manual) Seg Neutrophils # Seg Neutrophils # Man Lymphocytes # (Manual) Monocytes # (Manual) Basophils # (Manual) Percent Retic PT INR APTT Heparin Anti-Xa Level 0.11 L POC ABG pH POC ABG pCO2 POC ABG pO2 Sodium Potassium Chloride Carbon Dioxide BUN Creatinine Glucose POC Glucose 212 H 184 H Calcium Phosphorus Iron TIBC Lactate Dehydrogenase Total Creatine Kinase NT-Pro-B Natriuret Pep Total Protein Albumin Fcbgn-7-Jjmptnnis Hueav-1-Warniolnr Beta Globulins PEP Interpretation Cholesterol LDL Cholesterol Direct Vitamin B12 Urine WBC (Auto) Urine Creatinine Crossmatch 04/25/16 04/25/16 04/25/16 11:40 13:26 17:27 WBC RBC Hgb Hct MCV MCH MCHC RDW Plt Count Lymph % (Auto) [place] % (Auto) Lymph # [place] # Baso # Seg Neutrophils % Seg Neuts % (Manual) Lymphocytes % (Manual) Monocytes % (Manual) Seg Neutrophils # Seg Neutrophils # Man Lymphocytes # (Manual) Monocytes # (Manual) Basophils # (Manual) Percent Retic PT INR APTT Heparin Anti-Xa Level 0.21 L POC ABG pH POC ABG pCO2 POC ABG pO2 Sodium Potassium Chloride Carbon Dioxide BUN Creatinine Glucose POC Glucose 206 H 204 H Calcium Phosphorus Iron TIBC Lactate Dehydrogenase Total Creatine Kinase NT-Pro-B Natriuret Pep Total Protein Albumin Eoidb-6-Lkqpkxspj Nlpuj-6-Ogbqfecoa Beta Globulins PEP Interpretation Cholesterol LDL Cholesterol Direct Vitamin B12 Urine WBC (Auto) Urine Creatinine Crossmatch 04/25/16 04/26/16 04/26/16 23:46 06:31 11:51 WBC RBC Hgb Hct MCV MCH MCHC RDW Plt Count Lymph % (Auto) [place] % (Auto) Lymph # [place] # Baso # Seg Neutrophils % Seg Neuts % (Manual) Lymphocytes % (Manual) Monocytes % (Manual) Seg Neutrophils # Seg Neutrophils # Man Lymphocytes # (Manual) Monocytes # (Manual) Basophils # (Manual) Percent Retic PT INR APTT Heparin Anti-Xa Level POC ABG pH POC ABG pCO2 POC ABG pO2 Sodium Potassium Chloride Carbon Dioxide BUN Creatinine Glucose POC Glucose 162 H 148 H 178 H Calcium Phosphorus Iron TIBC Lactate Dehydrogenase Total Creatine Kinase NT-Pro-B Natriuret Pep Total Protein Albumin Jmyxw-5-Spddpjcic Lggye-6-Peftqofsu Beta Globulins PEP Interpretation Cholesterol LDL Cholesterol Direct Vitamin B12 Urine WBC (Auto) Urine Creatinine Crossmatch 04/26/16 04/26/16 04/26/16 12:17 16:16 18:14 WBC RBC Hgb Hct MCV MCH MCHC RDW Plt Count Lymph % (Auto) [place] % (Auto) Lymph # [place] # Baso # Seg Neutrophils % Seg Neuts % (Manual) Lymphocytes % (Manual) Monocytes % (Manual) Seg Neutrophils # Seg Neutrophils # Man Lymphocytes # (Manual) Monocytes # (Manual) Basophils # (Manual) Percent Retic PT INR APTT Heparin Anti-Xa Level POC ABG pH 7.513 H POC ABG pCO2 POC ABG pO2 76 L Sodium Potassium Chloride Carbon Dioxide BUN Creatinine Glucose POC Glucose 186 H 172 H Calcium Phosphorus Iron TIBC Lactate Dehydrogenase Total Creatine Kinase NT-Pro-B Natriuret Pep Total Protein Albumin Xkygj-4-Maexmctss Lfxso-4-Yqxuesqxo Beta Globulins PEP Interpretation Cholesterol LDL Cholesterol Direct Vitamin B12 Urine WBC (Auto) Urine Creatinine Crossmatch 04/26/16 04/26/16 04/27/16 19:27 23:28 04:21 WBC 13.1 H RBC 2.99 L Hgb 7.8 L Hct 24.0 L MCV 81 L MCH 26 L MCHC RDW 16.7 H Plt Count 486 H Lymph % (Auto) 12.5 L [place] % (Auto) 7.9 H Lymph # [place] # 1.0 H Baso # Seg Neutrophils % 77.5 H Seg Neuts % (Manual) Lymphocytes % (Manual) Monocytes % (Manual) Seg Neutrophils # 10.2 H Seg Neutrophils # Man Lymphocytes # (Manual) Monocytes # (Manual) Basophils # (Manual) Percent Retic PT INR APTT Heparin Anti-Xa Level 0.22 L POC ABG pH POC ABG pCO2 POC ABG pO2 Sodium Potassium Chloride Carbon Dioxide BUN Creatinine Glucose POC Glucose 141 H Calcium Phosphorus Iron TIBC Lactate Dehydrogenase Total Creatine Kinase NT-Pro-B Natriuret Pep Total Protein Albumin Eiatm-7-Pixmqkrwm Ozzli-8-Uknvcfpoj Beta Globulins PEP Interpretation Cholesterol LDL Cholesterol Direct Vitamin B12 Urine WBC (Auto) Urine Creatinine Crossmatch 04/27/16 04/27/16 04/27/16 04:21 05:46 11:04 WBC RBC Hgb Hct MCV MCH MCHC RDW Plt Count Lymph % (Auto) [place] % (Auto) Lymph # [place] # Baso # Seg Neutrophils % Seg Neuts % (Manual) Lymphocytes % (Manual) Monocytes % (Manual) Seg Neutrophils # Seg Neutrophils # Man Lymphocytes # (Manual) Monocytes # (Manual) Basophils # (Manual) Percent Retic PT INR APTT Heparin Anti-Xa Level POC ABG pH 7.489 H POC ABG pCO2 POC ABG pO2 71 L Sodium Potassium Chloride Carbon Dioxide BUN Creatinine 0.6 L Glucose 187 H POC Glucose 192 H Calcium 8.0 L Phosphorus Iron TIBC Lactate Dehydrogenase Total Creatine Kinase NT-Pro-B Natriuret Pep Total Protein 6.0 L Albumin 2.0 L Sefgi-5-Lqsyedcus Wkuwd-1-Vnjlgwyhq Beta Globulins PEP Interpretation Cholesterol LDL Cholesterol Direct Vitamin B12 Urine WBC (Auto) Urine Creatinine Crossmatch 04/27/16 04/27/16 04/27/16 14:12 21:58 23:38 WBC RBC Hgb Hct MCV MCH MCHC RDW Plt Count Lymph % (Auto) [place] % (Auto) Lymph # [place] # Baso # Seg Neutrophils % Seg Neuts % (Manual) Lymphocytes % (Manual) Monocytes % (Manual) Seg Neutrophils # Seg Neutrophils # Man Lymphocytes # (Manual) Monocytes # (Manual) Basophils # (Manual) Percent Retic PT INR APTT Heparin Anti-Xa Level 0.24 L POC ABG pH POC ABG pCO2 POC ABG pO2 Sodium Potassium Chloride Carbon Dioxide BUN Creatinine Glucose POC Glucose 216 H 181 H Calcium Phosphorus Iron TIBC Lactate Dehydrogenase Total Creatine Kinase NT-Pro-B Natriuret Pep Total Protein Albumin Clekd-1-Upvvomsxf Perbl-8-Zragbdtqj Beta Globulins PEP Interpretation Cholesterol LDL Cholesterol Direct Vitamin B12 Urine WBC (Auto) Urine Creatinine Crossmatch 04/28/16 04/28/16 04/28/16 04:28 05:52 11:31 WBC RBC Hgb Hct MCV MCH MCHC RDW Plt Count Lymph % (Auto) [place] % (Auto) Lymph # [place] # Baso # Seg Neutrophils % Seg Neuts % (Manual) Lymphocytes % (Manual) Monocytes % (Manual) Seg Neutrophils # Seg Neutrophils # Man Lymphocytes # (Manual) Monocytes # (Manual) Basophils # (Manual) Percent Retic PT INR APTT Heparin Anti-Xa Level POC ABG pH 7.524 H POC ABG pCO2 POC ABG pO2 Sodium Potassium Chloride Carbon Dioxide BUN Creatinine Glucose POC Glucose 254 H 280 H Calcium Phosphorus Iron TIBC Lactate Dehydrogenase Total Creatine Kinase NT-Pro-B Natriuret Pep Total Protein Albumin Lluop-3-Ipxxnngpr Ysdwc-0-Rsaszaykb Beta Globulins PEP Interpretation Cholesterol LDL Cholesterol Direct Vitamin B12 Urine WBC (Auto) Urine Creatinine Crossmatch 04/28/16 04/28/16 04/29/16 17:30 19:52 00:47 WBC RBC Hgb Hct MCV MCH MCHC RDW Plt Count Lymph % (Auto) [place] % (Auto) Lymph # [place] # Baso # Seg Neutrophils % Seg Neuts % (Manual) Lymphocytes % (Manual) Monocytes % (Manual) Seg Neutrophils # Seg Neutrophils # Man Lymphocytes # (Manual) Monocytes # (Manual) Basophils # (Manual) Percent Retic PT INR APTT Heparin Anti-Xa Level 0.15 L POC ABG pH POC ABG pCO2 POC ABG pO2 Sodium Potassium Chloride Carbon Dioxide BUN Creatinine Glucose POC Glucose 208 H 265 H Calcium Phosphorus Iron TIBC Lactate Dehydrogenase Total Creatine Kinase NT-Pro-B Natriuret Pep Total Protein Albumin Lswyb-3-Yjczapwrg Fbdwp-6-Otpaxzrky Beta Globulins PEP Interpretation Cholesterol LDL Cholesterol Direct Vitamin B12 Urine WBC (Auto) Urine Creatinine Crossmatch 04/29/16 04/29/16 04/29/16 04:00 04:00 04:29 WBC 13.4 H RBC 2.56 L Hgb 6.9 L Hct 20.6 L MCV 81 L MCH 27 L MCHC RDW 16.2 H Plt Count 513 H Lymph % (Auto) 10.0 L [place] % (Auto) 12.0 H Lymph # [place] # 1.6 H Baso # Seg Neutrophils % 77.1 H Seg Neuts % (Manual) Lymphocytes % (Manual) Monocytes % (Manual) Seg Neutrophils # 10.4 H Seg Neutrophils # Man Lymphocytes # (Manual) Monocytes # (Manual) Basophils # (Manual) Percent Retic PT INR APTT Heparin Anti-Xa Level POC ABG pH 7.501 H POC ABG pCO2 POC ABG pO2 76 L Sodium Potassium Chloride Carbon Dioxide BUN 27 H Creatinine Glucose 204 H POC Glucose Calcium 8.1 L Phosphorus Iron TIBC Lactate Dehydrogenase Total Creatine Kinase NT-Pro-B Natriuret Pep Total Protein Albumin Jltil-4-Ealqbzywt Kwteu-1-Nksuwdeyp Beta Globulins PEP Interpretation Cholesterol LDL Cholesterol Direct Vitamin B12 Urine WBC (Auto) Urine Creatinine Crossmatch 04/29/16 04/29/16 04/29/16 06:03 10:05 10:16 WBC RBC Hgb Hct MCV MCH MCHC RDW Plt Count Lymph % (Auto) [place] % (Auto) Lymph # [place] # Baso # Seg Neutrophils % Seg Neuts % (Manual) Lymphocytes % (Manual) Monocytes % (Manual) Seg Neutrophils # Seg Neutrophils # Man Lymphocytes # (Manual) Monocytes # (Manual) Basophils # (Manual) Percent Retic 3.68 H PT INR APTT Heparin Anti-Xa Level POC ABG pH POC ABG pCO2 POC ABG pO2 Sodium Potassium Chloride Carbon Dioxide BUN Creatinine Glucose POC Glucose 192 H Calcium Phosphorus Iron TIBC Lactate Dehydrogenase Total Creatine Kinase NT-Pro-B Natriuret Pep Total Protein Albumin Viytz-3-Hjyifeogx Nenbj-4-Hzwpsagqh Beta Globulins PEP Interpretation Cholesterol LDL Cholesterol Direct Vitamin B12 Urine WBC (Auto) Urine Creatinine Crossmatch See Detail 04/29/16 04/29/16 04/29/16 10:16 10:16 11:23 WBC RBC Hgb Hct MCV MCH MCHC RDW Plt Count Lymph % (Auto) [place] % (Auto) Lymph # [place] # Baso # Seg Neutrophils % Seg Neuts % (Manual) Lymphocytes % (Manual) Monocytes % (Manual) Seg Neutrophils # Seg Neutrophils # Man Lymphocytes # (Manual) Monocytes # (Manual) Basophils # (Manual) Percent Retic PT INR APTT Heparin Anti-Xa Level POC ABG pH POC ABG pCO2 POC ABG pO2 Sodium Potassium Chloride Carbon Dioxide BUN Creatinine Glucose POC Glucose 116 H Calcium Phosphorus Iron 10 L TIBC 138 L Lactate Dehydrogenase 204 H Total Creatine Kinase NT-Pro-B Natriuret Pep Total Protein Albumin Hgipj-5-Ycutgckzd Jxpwl-3-Jncomgtei Beta Globulins PEP Interpretation Cholesterol LDL Cholesterol Direct Vitamin B12 1005 H Urine WBC (Auto) Urine Creatinine Crossmatch 04/29/16 04/29/16 04/30/16 17:34 23:19 03:19 WBC RBC Hgb 9.0 L Hct 26.7 L D MCV MCH MCHC RDW Plt Count Lymph % (Auto) [place] % (Auto) Lymph # [place] # Baso # Seg Neutrophils % Seg Neuts % (Manual) Lymphocytes % (Manual) Monocytes % (Manual) Seg Neutrophils # Seg Neutrophils # Man Lymphocytes # (Manual) Monocytes # (Manual) Basophils # (Manual) Percent Retic PT INR APTT Heparin Anti-Xa Level POC ABG pH POC ABG pCO2 POC ABG pO2 Sodium Potassium Chloride Carbon Dioxide BUN Creatinine Glucose POC Glucose 142 H 242 H Calcium Phosphorus Iron TIBC Lactate Dehydrogenase Total Creatine Kinase NT-Pro-B Natriuret Pep Total Protein Albumin Fqgdz-6-Rlexoutgh Jnqez-7-Ysguloctr Beta Globulins PEP Interpretation Cholesterol LDL Cholesterol Direct Vitamin B12 Urine WBC (Auto) Urine Creatinine Crossmatch 04/30/16 04/30/16 04/30/16 04:10 04:10 04:32 WBC 13.8 H RBC 3.54 L Hgb 9.3 L Hct 29.1 L MCV 82 L MCH 26 L MCHC RDW 16.5 H Plt Count 535 H Lymph % (Auto) 7.5 L [place] % (Auto) 13.8 H Lymph # 1.0 L [place] # 1.9 H Baso # Seg Neutrophils % 78.0 H Seg Neuts % (Manual) Lymphocytes % (Manual) Monocytes % (Manual) Seg Neutrophils # 10.7 H Seg Neutrophils # Man Lymphocytes # (Manual) Monocytes # (Manual) Basophils # (Manual) Percent Retic PT INR APTT Heparin Anti-Xa Level POC ABG pH 7.519 H POC ABG pCO2 33.6 L POC ABG pO2 79 L Sodium 146 H Potassium Chloride Carbon Dioxide BUN Creatinine 0.7 L Glucose 242 H POC Glucose Calcium 8.3 L Phosphorus Iron TIBC Lactate Dehydrogenase Total Creatine Kinase NT-Pro-B Natriuret Pep Total Protein Albumin Hsrir-1-Dzqjwwugd Jkagn-2-Yebcgocxd Beta Globulins PEP Interpretation Cholesterol LDL Cholesterol Direct Vitamin B12 Urine WBC (Auto) Urine Creatinine Crossmatch 04/30/16 04/30/16 04/30/16 05:33 11:23 17:26 WBC RBC Hgb Hct MCV MCH MCHC RDW Plt Count Lymph % (Auto) [place] % (Auto) Lymph # [place] # Baso # Seg Neutrophils % Seg Neuts % (Manual) Lymphocytes % (Manual) Monocytes % (Manual) Seg Neutrophils # Seg Neutrophils # Man Lymphocytes # (Manual) Monocytes # (Manual) Basophils # (Manual) Percent Retic PT INR APTT Heparin Anti-Xa Level POC ABG pH POC ABG pCO2 POC ABG pO2 Sodium Potassium Chloride Carbon Dioxide BUN Creatinine Glucose POC Glucose 242 H 305 H 281 H Calcium Phosphorus Iron TIBC Lactate Dehydrogenase Total Creatine Kinase NT-Pro-B Natriuret Pep Total Protein Albumin Ayrvh-6-Ckdtgrwbi Issha-9-Jvocgnaap Beta Globulins PEP Interpretation Cholesterol LDL Cholesterol Direct Vitamin B12 Urine WBC (Auto) Urine Creatinine Crossmatch 04/30/16 05/01/16 05/01/16 23:53 04:00 04:00 WBC 15.9 H RBC 2.99 L Hgb 7.9 L Hct 24.4 L MCV 82 L MCH 26 L MCHC RDW 16.9 H Plt Count 481 H Lymph % (Auto) 9.3 L [place] % (Auto) 15.0 H Lymph # [place] # 2.4 H Baso # Seg Neutrophils % 74.9 H Seg Neuts % (Manual) Lymphocytes % (Manual) Monocytes % (Manual) Seg Neutrophils # 11.9 H Seg Neutrophils # Man Lymphocytes # (Manual) Monocytes # (Manual) Basophils # (Manual) Percent Retic PT INR APTT Heparin Anti-Xa Level POC ABG pH POC ABG pCO2 POC ABG pO2 Sodium 147 H Potassium Chloride 107.8 H Carbon Dioxide BUN 22 H Creatinine 0.7 L Glucose 229 H POC Glucose 207 H Calcium 8.2 L Phosphorus Iron TIBC Lactate Dehydrogenase Total Creatine Kinase NT-Pro-B Natriuret Pep Total Protein Albumin Ipzka-0-Kqmoohslt Cfmby-7-Iofehpisf Beta Globulins PEP Interpretation Cholesterol LDL Cholesterol Direct Vitamin B12 Urine WBC (Auto) Urine Creatinine Crossmatch 05/01/16 05/01/16 05/01/16 05:12 07:41 12:33 WBC RBC Hgb Hct MCV MCH MCHC RDW Plt Count Lymph % (Auto) [place] % (Auto) Lymph # [place] # Baso # Seg Neutrophils % Seg Neuts % (Manual) Lymphocytes % (Manual) Monocytes % (Manual) Seg Neutrophils # Seg Neutrophils # Man Lymphocytes # (Manual) Monocytes # (Manual) Basophils # (Manual) Percent Retic PT INR APTT Heparin Anti-Xa Level 0.16 L POC ABG pH POC ABG pCO2 POC ABG pO2 Sodium Potassium Chloride Carbon Dioxide BUN Creatinine Glucose POC Glucose 284 H 186 H Calcium Phosphorus Iron TIBC Lactate Dehydrogenase Total Creatine Kinase NT-Pro-B Natriuret Pep Total Protein Albumin Kbqew-4-Myoafeixn Tsmak-2-Ialcckjvm Beta Globulins PEP Interpretation Cholesterol LDL Cholesterol Direct Vitamin B12 Urine WBC (Auto) Urine Creatinine Crossmatch 05/01/16 05/01/16 05/02/16 17:24 23:19 04:48 WBC 17.2 H RBC 3.09 L Hgb 8.1 L Hct 25.5 L MCV 83 L MCH 26 L MCHC RDW 17.3 H Plt Count 507 H Lymph % (Auto) 8.0 L [place] % (Auto) 13.6 H Lymph # [place] # 2.3 H Baso # Seg Neutrophils % 77.5 H Seg Neuts % (Manual) Lymphocytes % (Manual) Monocytes % (Manual) Seg Neutrophils # 13.4 H Seg Neutrophils # Man Lymphocytes # (Manual) Monocytes # (Manual) Basophils # (Manual) Percent Retic PT INR APTT Heparin Anti-Xa Level POC ABG pH POC ABG pCO2 POC ABG pO2 Sodium Potassium Chloride Carbon Dioxide BUN Creatinine Glucose POC Glucose 171 H 132 H Calcium Phosphorus Iron TIBC Lactate Dehydrogenase Total Creatine Kinase NT-Pro-B Natriuret Pep Total Protein Albumin Fnwsq-0-Xuxqiqmfs Psvpf-0-Dnetokhih Beta Globulins PEP Interpretation Cholesterol LDL Cholesterol Direct Vitamin B12 Urine WBC (Auto) Urine Creatinine Crossmatch 05/02/16 05/02/16 05/02/16 04:48 04:48 05:42 WBC RBC Hgb Hct MCV MCH MCHC RDW Plt Count Lymph % (Auto) [place] % (Auto) Lymph # [place] # Baso # Seg Neutrophils % Seg Neuts % (Manual) Lymphocytes % (Manual) Monocytes % (Manual) Seg Neutrophils # Seg Neutrophils # Man Lymphocytes # (Manual) Monocytes # (Manual) Basophils # (Manual) Percent Retic PT INR APTT Heparin Anti-Xa Level 0.19 L POC ABG pH POC ABG pCO2 POC ABG pO2 Sodium 149 H Potassium Chloride 109.9 H Carbon Dioxide BUN 24 H Creatinine Glucose 224 H POC Glucose 253 H Calcium 8.2 L Phosphorus Iron TIBC Lactate Dehydrogenase Total Creatine Kinase NT-Pro-B Natriuret Pep Total Protein Albumin Pqbae-9-Vkvcyducu Muapv-2-Tzjjgmgcy Beta Globulins PEP Interpretation Cholesterol LDL Cholesterol Direct Vitamin B12 Urine WBC (Auto) Urine Creatinine Crossmatch 05/02/16 05/02/16 05/02/16 12:01 16:40 23:35 WBC RBC Hgb Hct MCV MCH MCHC RDW Plt Count Lymph % (Auto) [place] % (Auto) Lymph # [place] # Baso # Seg Neutrophils % Seg Neuts % (Manual) Lymphocytes % (Manual) Monocytes % (Manual) Seg Neutrophils # Seg Neutrophils # Man Lymphocytes # (Manual) Monocytes # (Manual) Basophils # (Manual) Percent Retic PT INR APTT Heparin Anti-Xa Level POC ABG pH POC ABG pCO2 POC ABG pO2 Sodium Potassium Chloride Carbon Dioxide BUN Creatinine Glucose POC Glucose 197 H 126 H 303 H Calcium Phosphorus Iron TIBC Lactate Dehydrogenase Total Creatine Kinase NT-Pro-B Natriuret Pep Total Protein Albumin Agdrq-7-Tdzmqkafv Xtynk-6-Mrotuwqej Beta Globulins PEP Interpretation Cholesterol LDL Cholesterol Direct Vitamin B12 Urine WBC (Auto) Urine Creatinine Crossmatch 05/03/16 05/03/16 05/03/16 04:31 04:31 04:31 WBC 19.1 H RBC 3.15 L Hgb 8.6 L Hct 25.7 L MCV 82 L MCH MCHC RDW 17.4 H Plt Count 525 H Lymph % (Auto) [place] % (Auto) Lymph # [place] # Baso # Seg Neutrophils % Seg Neuts % (Manual) Lymphocytes % (Manual) 10.0 L Monocytes % (Manual) 13.0 H Seg Neutrophils # Seg Neutrophils # Man 13.2 H Lymphocytes # (Manual) Monocytes # (Manual) 2.5 H Basophils # (Manual) 0.2 H Percent Retic PT INR APTT Heparin Anti-Xa Level 0.16 L POC ABG pH POC ABG pCO2 POC ABG pO2 Sodium 151 H Potassium Chloride 112.9 H Carbon Dioxide BUN 24 H Creatinine 0.7 L Glucose 303 H POC Glucose Calcium Phosphorus Iron TIBC Lactate Dehydrogenase Total Creatine Kinase NT-Pro-B Natriuret Pep Total Protein Albumin Hkwuj-5-Tmfaotbrg Qpkau-8-Kcysorgav Beta Globulins PEP Interpretation Cholesterol LDL Cholesterol Direct Vitamin B12 Urine WBC (Auto) Urine Creatinine Crossmatch 05/03/16 05/03/16 05/04/16 12:08 18:05 00:11 WBC RBC Hgb Hct MCV MCH MCHC RDW Plt Count Lymph % (Auto) [place] % (Auto) Lymph # [place] # Baso # Seg Neutrophils % Seg Neuts % (Manual) Lymphocytes % (Manual) Monocytes % (Manual) Seg Neutrophils # Seg Neutrophils # Man Lymphocytes # (Manual) Monocytes # (Manual) Basophils # (Manual) Percent Retic PT INR APTT Heparin Anti-Xa Level POC ABG pH POC ABG pCO2 POC ABG pO2 Sodium Potassium Chloride Carbon Dioxide BUN Creatinine Glucose POC Glucose 452 H 370 H 374 H Calcium Phosphorus Iron TIBC Lactate Dehydrogenase Total Creatine Kinase NT-Pro-B Natriuret Pep Total Protein Albumin Xmsbi-6-Vsbqguxkt Zpvrg-6-Yzomfcqsv Beta Globulins PEP Interpretation Cholesterol LDL Cholesterol Direct Vitamin B12 Urine WBC (Auto) Urine Creatinine Crossmatch 05/04/16 05/04/16 05/04/16 04:31 04:31 04:31 WBC 19.8 H RBC 2.90 L Hgb 7.8 L Hct 23.8 L MCV 82 L MCH 27 L MCHC RDW 17.9 H Plt Count 504 H Lymph % (Auto) [place] % (Auto) Lymph # [place] # Baso # Seg Neutrophils % Seg Neuts % (Manual) Lymphocytes % (Manual) 11.0 L Monocytes % (Manual) 8.0 H Seg Neutrophils # Seg Neutrophils # Man 13.3 H Lymphocytes # (Manual) Monocytes # (Manual) 1.6 H Basophils # (Manual) Percent Retic PT INR APTT Heparin Anti-Xa Level 0.15 L POC ABG pH POC ABG pCO2 POC ABG pO2 Sodium 146 H Potassium Chloride Carbon Dioxide BUN 30 H Creatinine 0.7 L Glucose 321 H POC Glucose Calcium 8.3 L Phosphorus Iron TIBC Lactate Dehydrogenase Total Creatine Kinase NT-Pro-B Natriuret Pep Total Protein Albumin Mvlcv-5-Lwbbznzpz Gerxm-3-Zwdinyosw Beta Globulins PEP Interpretation Cholesterol LDL Cholesterol Direct Vitamin B12 Urine WBC (Auto) Urine Creatinine Crossmatch 05/04/16 05/04/16 05/04/16 10:20 11:57 17:36 WBC RBC Hgb Hct MCV MCH MCHC RDW Plt Count Lymph % (Auto) [place] % (Auto) Lymph # [place] # Baso # Seg Neutrophils % Seg Neuts % (Manual) Lymphocytes % (Manual) Monocytes % (Manual) Seg Neutrophils # Seg Neutrophils # Man Lymphocytes # (Manual) Monocytes # (Manual) Basophils # (Manual) Percent Retic PT INR APTT Heparin Anti-Xa Level POC ABG pH POC ABG pCO2 POC ABG pO2 Sodium Potassium Chloride Carbon Dioxide BUN Creatinine Glucose POC Glucose 303 H 271 H Calcium Phosphorus Iron TIBC Lactate Dehydrogenase Total Creatine Kinase NT-Pro-B Natriuret Pep Total Protein Albumin Zsjer-0-Kfcvpiadf Lnqvl-2-Odgyjzaph Beta Globulins PEP Interpretation Cholesterol LDL Cholesterol Direct Vitamin B12 Urine WBC (Auto) > 182.0 H Urine Creatinine Crossmatch 05/04/16 05/05/16 05/05/16 23:53 04:13 04:13 WBC 20.9 H RBC 2.92 L Hgb 7.6 L Hct 23.9 L MCV 82 L MCH 26 L MCHC RDW 17.9 H Plt Count 526 H Lymph % (Auto) [place] % (Auto) Lymph # [place] # Baso # Seg Neutrophils % Seg Neuts % (Manual) 93.0 H Lymphocytes % (Manual) 2.0 L Monocytes % (Manual) Seg Neutrophils # Seg Neutrophils # Man 19.4 H Lymphocytes # (Manual) 0.4 L Monocytes # (Manual) Basophils # (Manual) Percent Retic PT INR APTT Heparin Anti-Xa Level POC ABG pH POC ABG pCO2 POC ABG pO2 Sodium 146 H Potassium Chloride Carbon Dioxide BUN 30 H Creatinine 0.7 L Glucose 250 H POC Glucose 235 H Calcium 8.1 L Phosphorus Iron TIBC Lactate Dehydrogenase Total Creatine Kinase NT-Pro-B Natriuret Pep Total Protein Albumin [id number] [id number] Beta Globulins PEP Interpretation Cholesterol LDL Cholesterol Direct Vitamin B12 Urine WBC (Auto) Urine Creatinine Crossmatch 05/05/16 05/05/16 05/05/16 05:27 07:36 12:06 WBC RBC Hgb Hct MCV MCH MCHC RDW Plt Count Lymph % (Auto) [place] % (Auto) Lymph # [place] # Baso # Seg Neutrophils % Seg Neuts % (Manual) Lymphocytes % (Manual) Monocytes % (Manual) Seg Neutrophils # Seg Neutrophils # Man Lymphocytes # (Manual) Monocytes # (Manual) Basophils # (Manual) Percent Retic PT INR APTT Heparin Anti-Xa Level < 0.10 L POC ABG pH POC ABG pCO2 POC ABG pO2 Sodium Potassium Chloride Carbon Dioxide BUN Creatinine Glucose POC Glucose 287 H 301 H Calcium Phosphorus Iron TIBC Lactate Dehydrogenase Total Creatine Kinase NT-Pro-B Natriuret Pep Total Protein Albumin Lvttd-1-Nytadvjul Aratn-0-Yhnynmgzk Beta Globulins PEP Interpretation Cholesterol LDL Cholesterol Direct Vitamin B12 Urine WBC (Auto) Urine Creatinine Crossmatch 05/05/16 05/05/16 05/06/16 15:58 17:30 00:10 WBC RBC Hgb Hct MCV MCH MCHC RDW Plt Count Lymph % (Auto) [place] % (Auto) Lymph # [place] # Baso # Seg Neutrophils % Seg Neuts % (Manual) Lymphocytes % (Manual) Monocytes % (Manual) Seg Neutrophils # Seg Neutrophils # Man Lymphocytes # (Manual) Monocytes # (Manual) Basophils # (Manual) Percent Retic PT INR APTT Heparin Anti-Xa Level 0.17 L POC ABG pH POC ABG pCO2 POC ABG pO2 Sodium Potassium Chloride Carbon Dioxide BUN Creatinine Glucose POC Glucose 226 H 161 H Calcium Phosphorus Iron TIBC Lactate Dehydrogenase Total Creatine Kinase NT-Pro-B Natriuret Pep Total Protein Albumin Kgntf-4-Skgkrchdc Kbusl-2-Ydvcyrvoz Beta Globulins PEP Interpretation Cholesterol LDL Cholesterol Direct Vitamin B12 Urine WBC (Auto) Urine Creatinine Crossmatch 05/06/16 05/06/16 05/06/16 04:23 05:30 05:37 WBC RBC Hgb Hct MCV MCH MCHC RDW Plt Count Lymph % (Auto) [place] % (Auto) Lymph # [place] # Baso # Seg Neutrophils % Seg Neuts % (Manual) Lymphocytes % (Manual) Monocytes % (Manual) Seg Neutrophils # Seg Neutrophils # Man Lymphocytes # (Manual) Monocytes # (Manual) Basophils # (Manual) Percent Retic PT INR APTT Heparin Anti-Xa Level 0.15 L POC ABG pH 7.511 H POC ABG pCO2 POC ABG pO2 Sodium Potassium Chloride Carbon Dioxide BUN Creatinine Glucose POC Glucose 168 H Calcium Phosphorus Iron TIBC Lactate Dehydrogenase Total Creatine Kinase NT-Pro-B Natriuret Pep Total Protein Albumin Rhdxp-2-Jpsosyywe Ygqvj-9-Gnhixljgv Beta Globulins PEP Interpretation Cholesterol LDL Cholesterol Direct Vitamin B12 Urine WBC (Auto) Urine Creatinine Crossmatch 05/06/16 05/06/16 05/07/16 12:48 17:22 00:04 WBC RBC Hgb Hct MCV MCH MCHC RDW Plt Count Lymph % (Auto) [place] % (Auto) Lymph # [place] # Baso # Seg Neutrophils % Seg Neuts % (Manual) Lymphocytes % (Manual) Monocytes % (Manual) Seg Neutrophils # Seg Neutrophils # Man Lymphocytes # (Manual) Monocytes # (Manual) Basophils # (Manual) Percent Retic PT INR APTT Heparin Anti-Xa Level POC ABG pH POC ABG pCO2 POC ABG pO2 Sodium Potassium Chloride Carbon Dioxide BUN Creatinine Glucose POC Glucose 206 H 160 H 164 H Calcium Phosphorus Iron TIBC Lactate Dehydrogenase Total Creatine Kinase NT-Pro-B Natriuret Pep Total Protein Albumin Lkyrq-1-Jihjhafkm Dtevo-4-Kihktjfmp Beta Globulins PEP Interpretation Cholesterol LDL Cholesterol Direct Vitamin B12 Urine WBC (Auto) Urine Creatinine Crossmatch 05/07/16 05/07/16 05/07/16 04:02 05:50 11:30 WBC RBC Hgb Hct MCV MCH MCHC RDW Plt Count Lymph % (Auto) [place] % (Auto) Lymph # [place] # Baso # Seg Neutrophils % Seg Neuts % (Manual) Lymphocytes % (Manual) Monocytes % (Manual) Seg Neutrophils # Seg Neutrophils # Man Lymphocytes # (Manual) Monocytes # (Manual) Basophils # (Manual) Percent Retic PT INR APTT Heparin Anti-Xa Level 0.15 L POC ABG pH POC ABG pCO2 POC ABG pO2 Sodium Potassium Chloride Carbon Dioxide BUN Creatinine Glucose POC Glucose 177 H 240 H Calcium Phosphorus Iron TIBC Lactate Dehydrogenase Total Creatine Kinase NT-Pro-B Natriuret Pep Total Protein Albumin Qviwp-7-Sybzrvygr Dkend-8-Viizdkilq Beta Globulins PEP Interpretation Cholesterol LDL Cholesterol Direct Vitamin B12 Urine WBC (Auto) Urine Creatinine Crossmatch 05/07/16 05/07/16 05/07/16 12:46 17:57 23:54 WBC 20.8 H RBC 2.86 L Hgb 7.6 L Hct 23.3 L MCV 81 L MCH 26 L MCHC RDW 17.9 H Plt Count 559 H Lymph % (Auto) [place] % (Auto) Lymph # [place] # Baso # Seg Neutrophils % Seg Neuts % (Manual) Lymphocytes % (Manual) Monocytes % (Manual) Seg Neutrophils # Seg Neutrophils # Man Lymphocytes # (Manual) Monocytes # (Manual) Basophils # (Manual) Percent Retic PT INR APTT Heparin Anti-Xa Level POC ABG pH POC ABG pCO2 POC ABG pO2 Sodium Potassium Chloride Carbon Dioxide BUN Creatinine Glucose POC Glucose 279 H 201 H Calcium Phosphorus Iron TIBC Lactate Dehydrogenase Total Creatine Kinase NT-Pro-B Natriuret Pep Total Protein Albumin Vgwxn-6-Akvmetdiq Ohuxx-3-Scxzumpsa Beta Globulins PEP Interpretation Cholesterol LDL Cholesterol Direct Vitamin B12 Urine WBC (Auto) Urine Creatinine Crossmatch 05/08/16 05/08/16 05/08/16 04:04 05:39 12:09 WBC RBC Hgb Hct MCV MCH MCHC RDW Plt Count Lymph % (Auto) [place] % (Auto) Lymph # [place] # Baso # Seg Neutrophils % Seg Neuts % (Manual) Lymphocytes % (Manual) Monocytes % (Manual) Seg Neutrophils # Seg Neutrophils # Man Lymphocytes # (Manual) Monocytes # (Manual) Basophils # (Manual) Percent Retic PT INR APTT Heparin Anti-Xa Level 0.20 L POC ABG pH POC ABG pCO2 POC ABG pO2 Sodium Potassium Chloride Carbon Dioxide BUN Creatinine Glucose POC Glucose 153 H 188 H Calcium Phosphorus Iron TIBC Lactate Dehydrogenase Total Creatine Kinase NT-Pro-B Natriuret Pep Total Protein Albumin Bjbci-6-Swvjsrbmk Gatyx-6-Idjbqnwbl Beta Globulins PEP Interpretation Cholesterol LDL Cholesterol Direct Vitamin B12 Urine WBC (Auto) Urine Creatinine Crossmatch 05/08/16 05/08/16 05/08/16 17:44 17:49 18:51 WBC RBC Hgb Hct MCV MCH MCHC RDW Plt Count Lymph % (Auto) [place] % (Auto) Lymph # [place] # Baso # Seg Neutrophils % Seg Neuts % (Manual) Lymphocytes % (Manual) Monocytes % (Manual) Seg Neutrophils # Seg Neutrophils # Man Lymphocytes # (Manual) Monocytes # (Manual) Basophils # (Manual) Percent Retic PT INR APTT Heparin Anti-Xa Level POC ABG pH POC ABG pCO2 POC ABG pO2 Sodium Potassium Chloride Carbon Dioxide BUN Creatinine Glucose POC Glucose 56 L 61 L 135 H Calcium Phosphorus Iron TIBC Lactate Dehydrogenase Total Creatine Kinase NT-Pro-B Natriuret Pep Total Protein Albumin Uivlw-0-Sjzjankrf Cdhpd-9-Pfafrutbn Beta Globulins PEP Interpretation Cholesterol LDL Cholesterol Direct Vitamin B12 Urine WBC (Auto) Urine Creatinine Crossmatch 05/09/16 05/09/16 05/09/16 00:14 04:07 05:18 WBC RBC Hgb Hct MCV MCH MCHC RDW Plt Count Lymph % (Auto) [place] % (Auto) Lymph # [place] # Baso # Seg Neutrophils % Seg Neuts % (Manual) Lymphocytes % (Manual) Monocytes % (Manual) Seg Neutrophils # Seg Neutrophils # Man Lymphocytes # (Manual) Monocytes # (Manual) Basophils # (Manual) Percent Retic PT INR APTT Heparin Anti-Xa Level 0.21 L POC ABG pH POC ABG pCO2 POC ABG pO2 Sodium Potassium Chloride Carbon Dioxide BUN Creatinine Glucose POC Glucose 151 H 215 H Calcium Phosphorus Iron TIBC Lactate Dehydrogenase Total Creatine Kinase NT-Pro-B Natriuret Pep Total Protein Albumin Vxetf-9-Pumyzmdms Amdfy-9-Xyumiecon Beta Globulins PEP Interpretation Cholesterol LDL Cholesterol Direct Vitamin B12 Urine WBC (Auto) Urine Creatinine Crossmatch 05/09/16 05/09/16 05/09/16 12:27 16:39 17:30 WBC RBC Hgb 6.4 L Hct 20.2 L MCV MCH MCHC RDW Plt Count Lymph % (Auto) [place] % (Auto) Lymph # [place] # Baso # Seg Neutrophils % Seg Neuts % (Manual) Lymphocytes % (Manual) Monocytes % (Manual) Seg Neutrophils # Seg Neutrophils # Man Lymphocytes # (Manual) Monocytes # (Manual) Basophils # (Manual) Percent Retic PT INR APTT Heparin Anti-Xa Level POC ABG pH POC ABG pCO2 POC ABG pO2 Sodium Potassium Chloride Carbon Dioxide BUN Creatinine Glucose POC Glucose 291 H 220 H Calcium Phosphorus Iron TIBC Lactate Dehydrogenase Total Creatine Kinase NT-Pro-B Natriuret Pep Total Protein Albumin Frgns-7-Nzodrofzo Ecebr-1-Ycyolfxiw Beta Globulins PEP Interpretation Cholesterol LDL Cholesterol Direct Vitamin B12 Urine WBC (Auto) Urine Creatinine Crossmatch 05/09/16 05/09/16 05/10/16 19:47 23:57 03:55 WBC 16.9 H RBC 3.20 L Hgb 8.6 L Hct 26.7 L D MCV 83 L MCH 27 L MCHC RDW 17.5 H Plt Count 488 H Lymph % (Auto) [place] % (Auto) Lymph # [place] # Baso # Seg Neutrophils % Seg Neuts % (Manual) 76.0 H Lymphocytes % (Manual) 9.0 L Monocytes % (Manual) 10.0 H Seg Neutrophils # Seg Neutrophils # Man 12.8 H Lymphocytes # (Manual) Monocytes # (Manual) 1.7 H Basophils # (Manual) Percent Retic PT INR APTT Heparin Anti-Xa Level POC ABG pH POC ABG pCO2 POC ABG pO2 Sodium Potassium Chloride Carbon Dioxide BUN Creatinine Glucose POC Glucose 217 H Calcium Phosphorus Iron TIBC Lactate Dehydrogenase Total Creatine Kinase NT-Pro-B Natriuret Pep Total Protein Albumin Ziofa-7-Fzoopsyqy Nmcul-0-Lkqxqxuuv Beta Globulins PEP Interpretation Cholesterol LDL Cholesterol Direct Vitamin B12 Urine WBC (Auto) Urine Creatinine Crossmatch See Detail 05/10/16 05/10/16 05/10/16 05:05 11:49 12:54 WBC RBC Hgb 9.1 L Hct 28.2 L MCV MCH MCHC RDW Plt Count Lymph % (Auto) [place] % (Auto) Lymph # [place] # Baso # Seg Neutrophils % Seg Neuts % (Manual) Lymphocytes % (Manual) Monocytes % (Manual) Seg Neutrophils # Seg Neutrophils # Man Lymphocytes # (Manual) Monocytes # (Manual) Basophils # (Manual) Percent Retic PT INR APTT Heparin Anti-Xa Level POC ABG pH POC ABG pCO2 POC ABG pO2 Sodium Potassium Chloride Carbon Dioxide BUN Creatinine Glucose POC Glucose 182 H 237 H Calcium Phosphorus Iron TIBC Lactate Dehydrogenase Total Creatine Kinase NT-Pro-B Natriuret Pep Total Protein Albumin Pngxb-9-Dgxsnyyjv Cusvh-8-Shnispxmb Beta Globulins PEP Interpretation Cholesterol LDL Cholesterol Direct Vitamin B12 Urine WBC (Auto) Urine Creatinine Crossmatch 05/10/16 05/10/16 05/10/16 12:54 17:29 23:07 WBC RBC Hgb Hct MCV MCH MCHC RDW Plt Count Lymph % (Auto) [place] % (Auto) Lymph # [place] # Baso # Seg Neutrophils % Seg Neuts % (Manual) Lymphocytes % (Manual) Monocytes % (Manual) Seg Neutrophils # Seg Neutrophils # Man Lymphocytes # (Manual) Monocytes # (Manual) Basophils # (Manual) Percent Retic PT INR 1.14 H APTT Heparin Anti-Xa Level POC ABG pH POC ABG pCO2 POC ABG pO2 Sodium Potassium Chloride Carbon Dioxide BUN Creatinine Glucose POC Glucose 198 H 172 H Calcium Phosphorus Iron TIBC Lactate Dehydrogenase Total Creatine Kinase NT-Pro-B Natriuret Pep Total Protein Albumin Bvkuh-3-Rilexegad Voulq-5-Rgcygenuv Beta Globulins PEP Interpretation Cholesterol LDL Cholesterol Direct Vitamin B12 Urine WBC (Auto) Urine Creatinine Crossmatch 05/11/16 05/11/16 05/11/16 04:16 04:16 05:13 WBC 16.1 H RBC 3.27 L Hgb 8.8 L Hct 27.7 L MCV MCH 27 L MCHC RDW 17.9 H Plt Count 475 H Lymph % (Auto) 8.9 L [place] % (Auto) 8.0 H Lymph # [place] # 1.3 H Baso # Seg Neutrophils % 81.6 H Seg Neuts % (Manual) Lymphocytes % (Manual) Monocytes % (Manual) Seg Neutrophils # 13.1 H Seg Neutrophils # Man Lymphocytes # (Manual) Monocytes # (Manual) Basophils # (Manual) Percent Retic PT INR APTT Heparin Anti-Xa Level POC ABG pH POC ABG pCO2 POC ABG pO2 Sodium 152 H Potassium Chloride 114.2 H Carbon Dioxide BUN 23 H Creatinine 0.6 L Glucose 166 H POC Glucose 173 H Calcium 8.0 L Phosphorus Iron TIBC Lactate Dehydrogenase Total Creatine Kinase NT-Pro-B Natriuret Pep Total Protein Albumin Wfpet-6-Etwloence Gevgw-4-Tmiclhuao Beta Globulins PEP Interpretation Cholesterol LDL Cholesterol Direct Vitamin B12 Urine WBC (Auto) Urine Creatinine Crossmatch 05/11/16 05/11/16 05/11/16 11:30 17:20 23:53 WBC RBC Hgb Hct MCV MCH MCHC RDW Plt Count Lymph % (Auto) [place] % (Auto) Lymph # [place] # Baso # Seg Neutrophils % Seg Neuts % (Manual) Lymphocytes % (Manual) Monocytes % (Manual) Seg Neutrophils # Seg Neutrophils # Man Lymphocytes # (Manual) Monocytes # (Manual) Basophils # (Manual) Percent Retic PT INR APTT Heparin Anti-Xa Level POC ABG pH POC ABG pCO2 POC ABG pO2 Sodium Potassium Chloride Carbon Dioxide BUN Creatinine Glucose POC Glucose 192 H 147 H 164 H Calcium Phosphorus Iron TIBC Lactate Dehydrogenase Total Creatine Kinase NT-Pro-B Natriuret Pep Total Protein Albumin Wjbmc-3-Xspwlsbsz Dpuju-6-Jzxxgahkp Beta Globulins PEP Interpretation Cholesterol LDL Cholesterol Direct Vitamin B12 Urine WBC (Auto) Urine Creatinine Crossmatch 05/12/16 05/12/16 05/12/16 05:35 07:33 11:01 WBC RBC Hgb 9.2 L Hct 29.2 L MCV MCH MCHC RDW Plt Count 503 H Lymph % (Auto) [place] % (Auto) Lymph # [place] # Baso # Seg Neutrophils % Seg Neuts % (Manual) Lymphocytes % (Manual) Monocytes % (Manual) Seg Neutrophils # Seg Neutrophils # Man Lymphocytes # (Manual) Monocytes # (Manual) Basophils # (Manual) Percent Retic PT INR APTT Heparin Anti-Xa Level POC ABG pH POC ABG pCO2 POC ABG pO2 Sodium 148 H Potassium Chloride 108.5 H Carbon Dioxide BUN Creatinine 0.5 L Glucose 146 H POC Glucose 145 H Calcium 8.2 L Phosphorus Iron TIBC Lactate Dehydrogenase Total Creatine Kinase NT-Pro-B Natriuret Pep Total Protein Albumin Oaxsy-2-Ovyacndwf Mfxqu-3-Jqszlgcqr Beta Globulins PEP Interpretation Cholesterol LDL Cholesterol Direct Vitamin B12 Urine WBC (Auto) Urine Creatinine Crossmatch 05/12/16 05/12/16 05/12/16 11:44 18:15 19:33 WBC RBC Hgb Hct MCV MCH MCHC RDW Plt Count Lymph % (Auto) [place] % (Auto) Lymph # [place] # Baso # Seg Neutrophils % Seg Neuts % (Manual) Lymphocytes % (Manual) Monocytes % (Manual) Seg Neutrophils # Seg Neutrophils # Man Lymphocytes # (Manual) Monocytes # (Manual) Basophils # (Manual) Percent Retic PT INR APTT Heparin Anti-Xa Level 0.17 L POC ABG pH POC ABG pCO2 POC ABG pO2 Sodium Potassium Chloride Carbon Dioxide BUN Creatinine Glucose POC Glucose 223 H 137 H Calcium Phosphorus Iron TIBC Lactate Dehydrogenase Total Creatine Kinase NT-Pro-B Natriuret Pep Total Protein Albumin Kwrxg-8-Yvrlsbkuo Oechp-1-Uxbbxkhto Beta Globulins PEP Interpretation Cholesterol LDL Cholesterol Direct Vitamin B12 Urine WBC (Auto) Urine Creatinine Crossmatch 05/12/16 05/13/16 05/13/16 23:23 04:45 05:43 WBC 18.1 H RBC 3.26 L Hgb 9.0 L Hct 29.0 L MCV MCH MCHC 31 L RDW 18.3 H Plt Count 467 H Lymph % (Auto) [place] % (Auto) Lymph # [place] # Baso # Seg Neutrophils % Seg Neuts % (Manual) 76.0 H Lymphocytes % (Manual) 11.0 L Monocytes % (Manual) 8.0 H Seg Neutrophils # Seg Neutrophils # Man 13.8 H Lymphocytes # (Manual) Monocytes # (Manual) 1.4 H Basophils # (Manual) 0.2 H Percent Retic PT INR APTT Heparin Anti-Xa Level POC ABG pH POC ABG pCO2 POC ABG pO2 Sodium Potassium Chloride Carbon Dioxide BUN Creatinine Glucose POC Glucose 114 H 136 H Calcium Phosphorus Iron TIBC Lactate Dehydrogenase Total Creatine Kinase NT-Pro-B Natriuret Pep Total Protein Albumin Fxamb-1-Alvfovglq Hudej-8-Vjzqzxycq Beta Globulins PEP Interpretation Cholesterol LDL Cholesterol Direct Vitamin B12 Urine WBC (Auto) Urine Creatinine Crossmatch 05/13/16 05/13/16 05/13/16 07:04 08:13 11:22 WBC RBC Hgb Hct MCV MCH MCHC RDW Plt Count Lymph % (Auto) [place] % (Auto) Lymph # [place] # Baso # Seg Neutrophils % Seg Neuts % (Manual) Lymphocytes % (Manual) Monocytes % (Manual) Seg Neutrophils # Seg Neutrophils # Man Lymphocytes # (Manual) Monocytes # (Manual) Basophils # (Manual) Percent Retic PT INR APTT Heparin Anti-Xa Level 0.25 L POC ABG pH POC ABG pCO2 POC ABG pO2 Sodium Potassium Chloride 109.1 H Carbon Dioxide BUN Creatinine 0.5 L Glucose 131 H POC Glucose 155 H Calcium 8.1 L Phosphorus Iron TIBC Lactate Dehydrogenase Total Creatine Kinase NT-Pro-B Natriuret Pep Total Protein Albumin Ictgh-7-Tkcallzxk Exazt-9-Yunlplkck Beta Globulins PEP Interpretation Cholesterol LDL Cholesterol Direct Vitamin B12 Urine WBC (Auto) Urine Creatinine Crossmatch Chest x-ray: report reviewed, image reviewed
--- NOTE | 2016-05-13 17:31 | Progress Note ---
Assessment and Plan 1. The heparin drip is currently off. We will have to hold heparin drip for 24- 48 hours and then re-assess the tracheostomy site. Subjective Date of service: 05/13/16 Narrative: Nursing staff reported that there was slight bleeding at trachesotomy site when heparin drip was turned on. The bleeding has stopped. Upon examination, no bleeding was noted and dressing was dry. Objective Vital Signs - 12hr 05/13/16 05/13/16 05/13/16 05:35 05:37 06:00 Temperature Pulse Rate 77 77 77 Pulse Rate [ Bilateral] Pulse Rate [ From Monitor] Respiratory 18 18 17 Rate Respiratory Rate [Bilateral ] Blood Pressure 139/78 139/78 138/77 O2 Sat by Pulse 98 98 99 Oximetry O2 Sat by Pulse Oximetry [ Assessment] 05/13/16 05/13/16 05/13/16 06:27 07:00 07:29 Temperature Pulse Rate 77 77 Pulse Rate [ 82 Bilateral] Pulse Rate [ From Monitor] Respiratory 19 18 Rate Respiratory 18 Rate [Bilateral ] Blood Pressure 138/77 130/78 O2 Sat by Pulse 100 99 Oximetry O2 Sat by Pulse Oximetry [ Assessment] 05/13/16 05/13/16 05/13/16 07:30 07:36 07:45 Temperature Pulse Rate 78 Pulse Rate [ 84 Bilateral] Pulse Rate [ From Monitor] Respiratory Rate Respiratory 18 Rate [Bilateral ] Blood Pressure 130/78 O2 Sat by Pulse 100 Oximetry O2 Sat by Pulse 100 Oximetry [ Assessment] 05/13/16 05/13/16 05/13/16 07:50 08:00 08:29 Temperature 98.5 F Pulse Rate 78 80 Pulse Rate [ Bilateral] Pulse Rate [ 78 From Monitor] Respiratory 17 19 Rate Respiratory Rate [Bilateral ] Blood Pressure 137/78 137/78 O2 Sat by Pulse 99 100 Oximetry O2 Sat by Pulse Oximetry [ Assessment] 05/13/16 05/13/16 05/13/16 08:52 09:00 09:02 Temperature Pulse Rate 83 79 80 Pulse Rate [ Bilateral] Pulse Rate [ From Monitor] Respiratory 19 Rate Respiratory Rate [Bilateral ] Blood Pressure 137/78 133/79 137/78 O2 Sat by Pulse 99 Oximetry O2 Sat by Pulse Oximetry [ Assessment] 05/13/16 05/13/16 05/13/16 09:05 10:00 10:08 Temperature Pulse Rate 80 72 72 Pulse Rate [ Bilateral] Pulse Rate [ From Monitor] Respiratory 16 Rate Respiratory Rate [Bilateral ] Blood Pressure 133/79 117/71 117/71 O2 Sat by Pulse 98 100 Oximetry O2 Sat by Pulse Oximetry [ Assessment] 05/13/16 05/13/16 05/13/16 10:53 10:55 11:00 Temperature Pulse Rate 75 76 78 Pulse Rate [ Bilateral] Pulse Rate [ From Monitor] Respiratory 21 25 H Rate Respiratory Rate [Bilateral ] Blood Pressure 117/71 117/71 122/73 O2 Sat by Pulse 97 100 100 Oximetry O2 Sat by Pulse Oximetry [ Assessment] 05/13/16 05/13/16 05/13/16 11:47 12:00 12:48 Temperature 98.2 F Pulse Rate 85 82 Pulse Rate [ Bilateral] Pulse Rate [ 85 From Monitor] Respiratory 40 H 19 Rate Respiratory Rate [Bilateral ] Blood Pressure 130/76 130/76 O2 Sat by Pulse 96 100 Oximetry O2 Sat by Pulse Oximetry [ Assessment] 05/13/16 05/13/16 05/13/16 13:00 13:02 13:24 Temperature Pulse Rate 79 78 85 Pulse Rate [ Bilateral] Pulse Rate [ From Monitor] Respiratory 30 H 32 H Rate Respiratory Rate [Bilateral ] Blood Pressure 110/67 110/67 110/67 O2 Sat by Pulse 100 100 Oximetry O2 Sat by Pulse Oximetry [ Assessment] 05/13/16 05/13/16 05/13/16 14:00 14:16 14:34 Temperature Pulse Rate 75 74 Pulse Rate [ 86 Bilateral] Pulse Rate [ From Monitor] Respiratory 31 H 28 H Rate Respiratory 28 H Rate [Bilateral ] Blood Pressure 105/65 105/65 O2 Sat by Pulse 100 100 Oximetry O2 Sat by Pulse Oximetry [ Assessment] 05/13/16 05/13/16 05/13/16 15:00 15:18 16:00 Temperature 99.4 F Pulse Rate 75 74 74 Pulse Rate [ Bilateral] Pulse Rate [ 74 From Monitor] Respiratory 32 H 26 H 31 H Rate Respiratory Rate [Bilateral ] Blood Pressure 110/67 110/67 113/66 O2 Sat by Pulse 100 100 100 Oximetry O2 Sat by Pulse Oximetry [ Assessment] - Neck trachea midline (no bleeding seen, dressing is dry) - Labs 05/13/16 04:45 05/13/16 07:04 Diabetes panel 05/13/16 Range/Units 07:04 Sodium 145 (137-145) mmol/L Potassium 4.2 (3.6-5.0) mmol/L Chloride 109.1 H (98-107) mmol/L Carbon Dioxide 24 (22-30) mmol/L BUN 18 (9-20) mg/dL Creatinine 0.5 L (0.8-1.5) mg/dL Glucose 131 H (75-100) mg/dL Calcium 8.1 L (8.4-10.2) mg/dL Calcium panel 05/13/16 Range/Units 07:04 Calcium 8.1 L (8.4-10.2) mg/dL Pituitary panel 05/13/16 Range/Units 07:04 Sodium 145 (137-145) mmol/L Potassium 4.2 (3.6-5.0) mmol/L Chloride 109.1 H (98-107) mmol/L Carbon Dioxide 24 (22-30) mmol/L BUN 18 (9-20) mg/dL Creatinine 0.5 L (0.8-1.5) mg/dL Glucose 131 H (75-100) mg/dL Calcium 8.1 L (8.4-10.2) mg/dL Adrenal panel 05/13/16 Range/Units 07:04 Sodium 145 (137-145) mmol/L Potassium 4.2 (3.6-5.0) mmol/L Chloride 109.1 H (98-107) mmol/L Carbon Dioxide 24 (22-30) mmol/L BUN 18 (9-20) mg/dL Creatinine 0.5 L (0.8-1.5) mg/dL Glucose 131 H (75-100) mg/dL Calcium 8.1 L (8.4-10.2) mg/dL
[2016-05-13] MEDS: D50W (25GM) IV PRN (17:35)
[2016-05-14] MEDS: DUONEB 0.5 MG-3 MG/3 ML SOLN IH SCH ×4 (02:35→21:29)
[2016-05-14 05:27] LABS: Basophils % (Auto) 0.3 % (0.0-1.8); Hematocrit 32.6 % (35.5-45.6); Hemoglobin 10.2 gm/dl (11.8-15.2); Mean Corpuscular HGB Conc 31 % (32-34); Mean Corpuscular Hemoglobin 27 pg (28-32); Mean Corpuscular Volume 85 fl (84-94); Platelet Count 576 K/mm3 (140-440); Red Blood Count 3.84 M/mm3 (3.65-5.03); Red Cell Distribution Width 17.5 % (13.2-15.2)
[2016-05-14 05:38] LABS: BUN/Creatinine Ratio 28.33; Blood Urea Nitrogen 17 mg/dL (9-20); Calcium 8.7 mg/dL (8.4-10.2); Carbon Dioxide 24 mmol/L (22-30); Chloride 104.2 mmol/L (98-107); Glucose 98 mg/dL (75-100); Potassium 4.5 mmol/L (3.6-5.0); Sodium 143 mmol/L (137-145)
[2016-05-14 05:39] LABS: Anion Gap 19 mmol/L
[2016-05-14] MEDS: ZOSYN/NS 4.5GM/100ML 100 ML IV SCH ×4 (06:36→23:25)
[2016-05-14] MEDS: NOVOLOG SUB-Q SCH ×5 (06:37→23:23)
[2016-05-14] MEDS: NORVASC PO SCH (09:33)
[2016-05-14] MEDS: ZESTRIL PO SCH ×2 (09:33→22:27)
[2016-05-14] MEDS: NORMODYNE PO SCH ×3 (09:33→22:00)
[2016-05-14] MEDS: PEPCID PO SCH ×2 (09:33→22:27)
[2016-05-14] MEDS: CORDARONE PO SCH (09:33)
[2016-05-14] MEDS: KEPPRA PO SCH ×2 (09:34→22:27)
--- NOTE | 2016-05-14 11:50 | Progress Note ---
Addendum entered and electronically signed by RICKY HOGAN MD 12:15: Resume warfarin when feasible No further cardiac intervention Will sign off Original Note: Assessment and Plan Acute respiratory failure requiring re intubation s/p trach no evidence of PE by V\Q scan normal ventricular and atria size, EF 65% on echo this admission. Acute CVA LIZZIE - very dense echo contrast noted in the thoracic aorta consistent with low flow state, severe concentric LVH, normal functioning bioprosthetic aortic valve. On IV heparin. Coumadin on hold Acute drop in anemia requiring blood transfusion Abnormal ECG no significant CAD by [facility] 08/2015 Hx of aortic dissection s/p repair Hx of bioprosthetic aortic valve replacement Hypertension Plan: Conservative cardiac management Subjective Date of service: 05/14/16 Principal diagnosis: CVA, acute respiratory failure Interval history: No interval changes. Sinus rhythm on telemetry. Objective Vital Signs Temp Pulse Pulse Pulse Pulse Resp Resp 05/14/16 09:33 87 05/14/16 08:00 98.3 F 05/14/16 07:45 81 23 05/14/16 07:32 87 27 H 05/14/16 06:00 78 20 05/14/16 05:41 81 20 05/14/16 05:00 78 20 05/14/16 04:00 79 75 22 05/14/16 03:59 99.2 F 05/14/16 03:00 76 25 H 05/14/16 02:00 77 83 26 H 05/14/16 01:00 75 23 05/14/16 00:57 74 24 05/14/16 00:51 74 22 05/14/16 00:00 98.2 F 75 75 18 05/13/16 23:01 80 05/13/16 23:00 81 21 05/13/16 22:55 82 05/13/16 22:00 84 28 H 05/13/16 21:46 85 26 H 05/13/16 21:00 89 23 05/13/16 20:45 90 05/13/16 20:43 05/13/16 20:00 98.3 F 87 90 74 18 05/13/16 19:00 87 26 H 05/13/16 18:22 83 22 05/13/16 18:00 83 15 05/13/16 17:00 75 26 H 05/13/16 16:26 75 29 H 05/13/16 16:00 99.4 F 74 74 31 H 05/13/16 15:18 74 26 H 05/13/16 15:00 75 32 H 05/13/16 14:34 86 05/13/16 14:16 74 28 H 05/13/16 14:00 75 31 H 05/13/16 13:24 85 05/13/16 13:02 78 32 H 05/13/16 13:00 79 30 H 05/13/16 12:48 82 19 05/13/16 12:00 85 85 40 H Resp BP Pulse Ox Pulse Ox 05/14/16 09:33 148/91 05/14/16 08:00 05/14/16 07:45 05/14/16 07:32 95 05/14/16 06:00 136/75 97 05/14/16 05:41 137/82 96 05/14/16 05:00 137/82 95 05/14/16 04:00 134/77 97 05/14/16 03:59 05/14/16 03:00 128/74 99 05/14/16 02:00 29 H 122/73 05/14/16 01:00 124/75 96 05/14/16 00:57 112/68 95 05/14/16 00:51 112/68 98 05/14/16 00:00 112/68 100 96 05/13/16 23:01 129/79 05/13/16 23:00 136/78 95 05/13/16 22:55 129/79 05/13/16 22:00 114/75 99 05/13/16 21:46 99/32 96 05/13/16 21:00 114/75 95 05/13/16 20:45 15 05/13/16 20:43 96 05/13/16 20:00 20 99/32 100 05/13/16 19:00 131/77 96 05/13/16 18:22 131/77 94 05/13/16 18:00 131/77 05/13/16 17:00 113/66 99 05/13/16 16:26 113/66 100 05/13/16 16:00 113/66 100 96 05/13/16 15:18 110/67 100 05/13/16 15:00 110/67 100 17 14:34 28 H 05/13/16 14:16 105/05/13/16 14:00 05/13/16 13:24 110/05/13/16 13:02 11005/13/16 13:00 05/13/16 12:48 130/76 100 05/13/16 12:00 130/76 96 - Physical Examination General: Other (vent to trach) Cardiac: Positive: Reg Rate and Rhythm - Labs and Meds CBC 05/14/16 Range/Units 04:31 WBC 18.0 H (4.5-11.0) K/mm3 RBC 3.84 (3.65-5.03) M/mm3 Hgb 10.2 L (11.8-15.2) gm/dl Hct 32.6 L (35.5-45.6) % Plt Count 576 H (140-440) K/mm3 Lymph # 1.6 (1.2-5.4) K/mm3 Cook # 1.7 H (0.0-0.8) K/mm3 Eos # 0.2 (0.0-0.4) K/mm3 Baso # 0.1 (0.0-0.1) K/mm3 Comprehensive Metabolic Panel 05/14/16 Range/Units 04:31 Sodium 143 (137-145) mmol/L Potassium 4.5 (3.6-5.0) mmol/L Chloride 104.2 (98-107) mmol/L Carbon Dioxide 24 (22-30) mmol/L BUN 17 (9-20) mg/dL Creatinine 0.6 L (0.8-1.5) mg/dL Glucose 98 (75-100) mg/dL Calcium 8.7 (8.4-10.2) mg/dL - Imaging and Cardiology EKG: image reviewed
--- NOTE | 2016-05-14 13:07 | Progress Note ---
Assessment and Plan Assessment and plan: 1. Acute respiratory failure. Patient reintubated on 04/17/16. Continue mechanical ventilation per pulmonary. Tracheostomy on 04/29/16. Continue CPAP trials 2. Acute CVA. CT scan revealed acute ischemic infarct in the right cerebellum. MRI reveals subacute infarct in the right cerebellar hemisphere with associated edema and mass effect as previously described. Patient also with multiple areas of acute infarct in the left occipital and frontal lobes that are most likely embolic. LIZZIE done- No thrombus but decreased flow. Cardiology recommends anticoagulation with Coumadin. 3. Hypotension. Resolved. Patient currently off pressors. Echocardiogram revealed EF of 50-55%. 4. Encephalopathy. EEG normal. Etiology likely secondary to CVA +/- hypertension. 5. Group B strep UTI-treated 6. Accelerated hypertension. Continue antihypertensive medications 7. CAD-stable 8. Seizures-continue Keppra. EEG normal. 9. Type 2 diabetes mellitus. Glycemic control. 10. History of aortic dissection status post repair. 11. History of prosthetic aortic valve replacement. Echo with normal function on 08/2015. Heparin on hold secondary to trach site bleeding. 12. DVT prophylaxis. Heparin drip on hold. 13. GI prophylaxis-Pepcid 14. Oropharyngeal dysphagia. Patient failed swallow evaluation. Status post PEG placement on 04/17. 15. Anemia. Monitor H&H closely. 16. Hypernatremia. Resolved. Continue free water. 17. Tracheostomy site bleeding. We will hold heparin for now and monitor. Surgery following. 18. Neck Cellulitis. Continue antibiotic. History Interval history: 60 years old -[place] male with nonobstructive CAD per recent CAD, hypertension, hyperlipidemia, bioprosthetic aortic valve replacement, chronic kidney disease, diabetes and seizure disorder who was initially admitted for metabolic encephalopathy with hypernatremia. Patient developed respiratory failure during this hospitalization on 03/27 and was intubated placed on mechanical ventilation. Patient was later extubated during his hospitalization but was reintubated on the evening of 04/16/16. Patient now remains intubated on mechanical ventilation. Patient is also status post PEG tube placement on . Patient remains on mechanical ventilation. Patient status post tracheostomy on 04/29/16. Nursing staff reported that there was slight bleeding at trachesotomy site when heparin drip was turned on. The bleeding has stopped. Hospitalist Physical - Constitutional Vitals: Temp Pulse Resp BP Pulse Ox 98.3 F 87 23 148/91 95 05/14/16 08:00 05/14/16 09:33 05/14/16 07:45 05/14/16 09:33 05/14/16 07:32 General appearance: Present: no acute distress, other (tracheostomy) - EENT Eyes: Present: PERRL, EOM intact ENT: hearing intact, clear oral mucosa, dentition normal - Neck Neck: Present: supple, normal ROM - Respiratory Respiratory effort: normal Respiratory: bilateral: diminished - Cardiovascular Rhythm: regular Heart Sounds: Present: S1 & S2. Absent: gallop, rub - Extremities Extremities: no ischemia, No edema, Full ROM - Abdominal General gastrointestinal: soft, non-tender, non-distended, normal bowel sounds - Integumentary Integumentary: Present: clear, warm, dry - Neurologic Neurologic: CNII-XII intact, moves all extremities Results - Labs CBC & Chem 7: 05/14/16 04:31 05/14/16 04:31 Labs: Laboratory Last Values WBC 18.0 K/mm3 (4.5-11.0) H 05/14/16 04:31 RBC 3.84 M/mm3 (3.65-5.03) 05/14/16 04:31 Hgb 10.2 gm/dl (11.8-15.2) L 05/14/16 04:31 Hct 32.6 % (35.5-45.6) L 05/14/16 04:31 MCV 85 fl (84-94) D 05/14/16 04:31 MCH 27 pg (28-32) L 05/14/16 04:31 MCHC 31 % (32-34) L 05/14/16 04:31 RDW 17.5 % (13.2-15.2) H 05/14/16 04:31 Plt Count 576 K/mm3 (140-440) H 05/14/16 04:31 Lymph % (Auto) 8.9 % (13.4-35.0) L 05/14/16 04:31 [place] % (Auto) 9.3 % (0.0-7.3) H 05/14/16 04:31 Eos % (Auto) 1.0 % (0.0-4.3) 05/14/16 04:31 Baso % (Auto) 0.3 % (0.0-1.8) 05/14/16 04:31 Lymph # 1.6 K/mm3 (1.2-5.4) 05/14/16 04:31 [place] # 1.7 K/mm3 (0.0-0.8) H 05/14/16 04:31 Eos # 0.2 K/mm3 (0.0-0.4) 05/14/16 04:31 Baso # 0.1 K/mm3 (0.0-0.1) 05/14/16 04:31 Add Manual Diff Complete 05/13/16 04:45 Total Counted 100 05/13/16 04:45 Seg Neutrophils % 80.5 % (40.0-70.0) H 05/14/16 04:31 Seg Neuts % (Manual) 76.0 % (40.0-70.0) H 05/13/16 04:45 Band Neutrophils % 3.0 % 05/13/16 04:45 Lymphocytes % (Manual) 11.0 % (13.4-35.0) L 05/13/16 04:45 Reactive Lymphs % (Man) 0 % 05/13/16 04:45 Monocytes % (Manual) 8.0 % (0.0-7.3) H 05/13/16 04:45 Eosinophils % (Manual) 1.0 % (0.0-4.3) 05/13/16 04:45 Basophils % (Manual) 1.0 % (0.0-1.8) 05/13/16 04:45 Metamyelocytes % 0 % 05/13/16 04:45 Myelocytes % 0 % 05/13/16 04:45 Promyelocytes % 0 % 05/13/16 04:45 Blast Cells % 0 % 05/13/16 04:45 Nucleated RBC % Not Reportable 05/13/16 04:45 Seg Neutrophils # 14.5 K/mm3 (1.8-7.7) H 05/14/16 04:31 Seg Neutrophils # Man 13.8 K/mm3 (1.8-7.7) H 05/13/16 04:45 Band Neutrophils # 0.5 K/mm3 05/13/16 04:45 Lymphocytes # (Manual) 2.0 K/mm3 (1.2-5.4) 05/13/16 04:45 Abs React Lymphs (Man) 0.0 K/mm3 05/13/16 04:45 Monocytes # (Manual) 1.4 K/mm3 (0.0-0.8) H 05/13/16 04:45 Eosinophils # (Manual) 0.2 K/mm3 (0.0-0.4) 05/13/16 04:45 Basophils # (Manual) 0.2 K/mm3 (0.0-0.1) H 05/13/16 04:45 Metamyelocytes # 0.0 K/mm3 05/13/16 04:45 Myelocytes # 0.0 K/mm3 05/13/16 04:45 Promyelocytes # 0.0 K/mm3 05/13/16 04:45 Blast Cells # 0.0 K/mm3 05/13/16 04:45 WBC Morphology Not Reportable 05/13/16 04:45 Hypersegmented Neuts Not Reportable 05/13/16 04:45 Hyposegmented Neuts Not Reportable 05/13/16 04:45 Hypogranular Neuts Not Reportable 05/13/16 04:45 Smudge Cells Not Reportable 05/13/16 04:45 Toxic Granulation Not Reportable 05/13/16 04:45 Toxic Vacuolation Not Reportable 05/13/16 04:45 Dohle Bodies Not Reportable 05/13/16 04:45 Pelger-Huet Anomaly Not Reportable 05/13/16 04:45 Corina Rods Not Reportable 05/13/16 04:45 Platelet Estimate Consistent w auto 05/13/16 04:45 Clumped Platelets Not Reportable 05/13/16 04:45 Plt Clumps, EDTA Not Reportable 05/13/16 04:45 Large Platelets Not Reportable 05/13/16 04:45 Giant Platelets Not Reportable 05/13/16 04:45 Platelet Satelliting Not Reportable 05/13/16 04:45 Plt Morphology Comment Not Reportable 05/13/16 04:45 RBC Morphology Not Reportable 05/13/16 04:45 Dimorphic RBCs Not Reportable 05/13/16 04:45 Polychromasia Rare 05/13/16 04:45 Hypochromasia Not Reportable 05/13/16 04:45 Poikilocytosis Not Reportable 05/13/16 04:45 Anisocytosis 1+ 05/13/16 04:45 Microcytosis Not Reportable 05/13/16 04:45 Macrocytosis Rare 05/13/16 04:45 Spherocytes Not Reportable 05/13/16 04:45 Pappenheimer Bodies Not Reportable 05/13/16 04:45 Sickle Cells Not Reportable 05/13/16 04:45 Target Cells Not Reportable 05/13/16 04:45 Tear Drop Cells Not Reportable 05/13/16 04:45 Ovalocytes Not Reportable 05/13/16 04:45 Helmet Cells Not Reportable 05/13/16 04:45 Mcgrath-Roseto Bodies Not Reportable 05/13/16 04:45 [employer] Rings Not Reportable 05/13/16 04:45 Tuan Cells Not Reportable 05/13/16 04:45 Bite Cells Not Reportable 05/13/16 04:45 Crenated Cell Not Reportable 05/13/16 04:45 Elliptocytes Not Reportable 05/13/16 04:45 Acanthocytes (Spur) Not Reportable 05/13/16 04:45 Rouleaux Not Reportable 05/13/16 04:45 Hemoglobin C Crystals Not Reportable 05/13/16 04:45 Schistocytes Not Reportable 05/13/16 04:45 Malaria parasites Not Reportable 05/13/16 04:45 Percent Retic 3.68 % (0.78-2.58) H 04/29/16 10:16 Gideon Bodies Not Reportable 05/13/16 04:45 Hem Pathologist Commnt No 05/13/16 04:45 PT 13.8 Sec. (12.2-14.9) 05/12/16 11:01 INR 1.07 (0.87-1.13) 05/12/16 11:01 APTT 27.2 Sec. (24.2-36.6) 05/12/16 11:01 Heparin Anti-Xa Level < 0.10 U.I./ml (0.3-0.7) L 05/13/16 18:06 POC ABG pH 7.511 (7.35-7.45) H 05/06/16 05:30 POC ABG pCO2 36.2 (35-45) 05/06/16 05:30 POC ABG pO2 92 (80-105) 05/06/16 05:30 POC ABG HCO3 28.9 05/06/16 05:30 POC ABG Total CO2 30 05/06/16 05:30 POC ABG O2 Sat 98 05/06/16 05:30 POC ABG Base Excess 6 05/06/16 05:30 VBG pH 7.418 (7.320-7.420) 03/24/16 14:00 FiO2 25 % 05/06/16 05:30 Sodium 143 mmol/L (137-145) 05/14/16 04:31 Potassium 4.5 mmol/L (3.6-5.0) 05/14/16 04:31 Chloride 104.2 mmol/L (98-107) 05/14/16 04:31 Carbon Dioxide 24 mmol/L (22-30) 05/14/16 04:31 Anion Gap 19 mmol/L 05/14/16 04:31 BUN 17 mg/dL (9-20) 05/14/16 04:31 Creatinine 0.6 mg/dL (0.8-1.5) L 05/14/16 04:31 Estimated GFR > 60 ml/min 05/14/16 04:31 BUN/Creatinine Ratio 28.33 % 05/14/16 04:31 Glucose 98 mg/dL (75-100) 05/14/16 04:31 POC Glucose 136 (70-105) H 05/14/16 05:50 Hemoglobin A1c 9.6 % (4-6) H 03/24/16 14:00 Lactic Acid 1.6 mmol/L (0.7-2.0) 04/17/16 12:17 Calcium 8.7 mg/dL (8.4-10.2) 05/14/16 04:31 Phosphorus 3.1 mg/dL (2.5-4.5) 05/11/16 04:16 Magnesium 2.3 mg/dL (1.7-2.3) 05/11/16 04:16 Iron 10 ug/dL (49-181) L 04/29/16 10:16 TIBC 138 mcg/dL (250-450) L 04/29/16 10:16 Ferritin 336.4 ng/mL (13.0-400.0) 04/29/16 10:16 Total Bilirubin < 0.2 mg/dL (0.1-1.2) 04/27/16 04:21 AST 18 units/L (5-40) 04/27/16 04:21 ALT 39 units/L (7-56) 04/27/16 04:21 Alkaline Phosphatase 103 units/L (35-129) 04/27/16 04:21 Lactate Dehydrogenase 204 units/L (91-180) H 04/29/16 10:16 Total Creatine Kinase 356 units/L (55-170) H 03/28/16 13:29 Troponin T < 0.010 ng/mL (0.00-0.029) 03/28/16 13:29 NT-Pro-B Natriuret Pep 897.9 pg/mL (0-900) 04/03/16 04:10 Serum Total Protein 7.1 g/dL (6.1-8.1) 03/25/16 13:00 Total Protein 6.0 g/dL (6.3-8.2) L 04/27/16 04:21 Albumin 2.0 g/dL (3.9-5) L 04/27/16 04:21 Albumin/Globulin Ratio 0.5 % 04/27/16 04:21 [id number]-8-Liftdhoto See scanned report 03/31/16 12:20 Veouz-2-Kgoxjqsrb See scanned report 03/31/16 12:20 Beta Globulins See scanned report 03/31/16 12:20 Rdck-1-Xjrlpffdfwgfh 2.46 mg/L (<=2.51) 03/25/16 13:00 Gamma Globulins See scanned report 03/31/16 12:20 Abnorm Protein Band 1 see below (()) 03/25/16 13:00 PEP Interpretation See scanned report 03/31/16 12:20 Triglycerides 88 mg/dL (2-149) 03/24/16 17:58 Cholesterol 221 mg/dL (50-199) H 03/24/16 17:58 LDL Cholesterol Direct 146 mg/dL (50-130) H 03/24/16 17:58 HDL Cholesterol 58 mg/dL (40-59) 03/24/16 17:58 Cholesterol/HDL Ratio 3.81 % 03/24/16 17:58 Vitamin B12 1005 pg/mL (211-911) H 04/29/16 10:16 Folate 12.78 ng/mL (7.3-26.0) 04/29/16 10:16 Urine Color Yellow (Yellow) 05/04/16 10:20 Urine Turbidity Cloudy (Clear) 05/04/16 10:20 Urine pH 5.0 (5.0-7.0) 05/04/16 10:20 Ur Specific [place] 1.017 (1.003-1.030) 05/04/16 10:20 Urine Protein 100 mg/dl mg/dL (Negative) 05/04/16 10:20 Urine Glucose (UA) >=500 mg/dL (Negative) 05/04/16 10:20 Urine Ketones Neg mg/dL (Negative) 05/04/16 10:20 Urine Blood Sm (Negative) 05/04/16 10:20 Urine Nitrite Neg (Negative) 05/04/16 10:20 Urine Bilirubin Neg (Negative) 05/04/16 10:20 Urine Urobilinogen 2.0 mg/dL (<2.0) 05/04/16 10:20 Ur Leukocyte Esterase Lg (Negative) 05/04/16 10:20 Urine WBC (Auto) > 182.0 /HPF (0.0-6.0) H 05/04/16 10:20 Urine RBC (Auto) 13.0 /HPF (0.0-6.0) 05/04/16 10:20 U Epithel Cells (Auto) < 1.0 /HPF (0-13.0) 05/04/16 10:20 Urine Bacteria (Auto) 1+ /HPF (Negative) 05/04/16 10:20 Urine WBC Clumps 3+ /HPF 05/04/16 10:20 Hyaline Casts 1 /LPF 03/24/16 14:27 Urine Mucus Few /HPF 05/04/16 10:20 Urine Yeast (Budding) 1+ /HPF 05/04/16 10:20 Ur Random Creatinine See scanned report 03/31/16 12:20 U Random Total Protein See scanned report 03/31/16 12:20 Urine Creatinine 85.5 mg/dL (0.1-20.0) H 04/20/16 11:50 Protein/Creatinin Ratio See scanned report 03/31/16 12:20 Urine Sodium 17 mEq/L 04/20/16 11:50 U Abnormal Prot Band 1 See scanned report 03/31/16 12:20 U Abnormal Prot Band 2 See scanned report 03/31/16 12:20 U Abnormal Prot Band 3 See scanned report 03/31/16 12:20 Ketones 1.0 mg/dL (0.2-2.8) 03/24/16 14:00 Blood Type A POSITIVE 05/09/16 19:47 Antibody Screen Negative 05/09/16 19:47 Crossmatch See Detail 05/09/16 19:47
--- NOTE | 2016-05-14 16:02 | Progress Note ---
Assessment and Plan s/p trach no active bleeding noted if re-bleeds on therapeutic anti-coagulation then will have to stop anticoagulation we will sign-off please re-consult as needed Subjective Date of service: 05/14/16 Patient Reports: Positive: other (no bleeding from trach site per nurse) Objective Vital Signs - 12hr 05/14/16 05/14/16 05/14/16 05:00 05:41 06:00 Temperature Pulse Rate 78 81 78 Pulse Rate [ Anterior Bilateral Throughout] Pulse Rate [ Bilateral] Respiratory 20 20 20 Rate Respiratory Rate [Anterior Bilateral Throughout] Respiratory Rate [Bilateral ] Blood Pressure 137/82 137/82 136/75 O2 Sat by Pulse 95 96 97 Oximetry O2 Sat by Pulse Oximetry [ Assessment] 05/14/16 05/14/16 05/14/16 06:07 07:00 07:32 Temperature Pulse Rate 80 81 Pulse Rate [ 87 Anterior Bilateral Throughout] Pulse Rate [ Bilateral] Respiratory 17 22 Rate Respiratory 27 H Rate [Anterior Bilateral Throughout] Respiratory Rate [Bilateral ] Blood Pressure 136/75 139/77 O2 Sat by Pulse 97 92 Oximetry O2 Sat by Pulse 95 Oximetry [ Assessment] 05/14/16 05/14/16 05/14/16 07:45 08:00 09:00 Temperature 98.3 F Pulse Rate 84 84 Pulse Rate [ 81 Anterior Bilateral Throughout] Pulse Rate [ Bilateral] Respiratory 24 30 H Rate Respiratory 23 Rate [Anterior Bilateral Throughout] Respiratory Rate [Bilateral ] Blood Pressure 142/87 148/91 O2 Sat by Pulse 100 99 Oximetry O2 Sat by Pulse Oximetry [ Assessment] 05/14/16 05/14/16 05/14/16 09:33 10:00 11:00 Temperature Pulse Rate 87 91 H 87 Pulse Rate [ Anterior Bilateral Throughout] Pulse Rate [ Bilateral] Respiratory 27 H 34 H Rate Respiratory Rate [Anterior Bilateral Throughout] Respiratory Rate [Bilateral ] Blood Pressure 148/91 129/77 112/66 O2 Sat by Pulse 99 95 Oximetry O2 Sat by Pulse Oximetry [ Assessment] 05/14/16 05/14/16 05/14/16 12:00 13:00 13:57 Temperature Pulse Rate 85 88 Pulse Rate [ 91 H Anterior Bilateral Throughout] Pulse Rate [ Bilateral] Respiratory 29 H 30 H Rate Respiratory 35 H Rate [Anterior Bilateral Throughout] Respiratory Rate [Bilateral ] Blood Pressure 114/69 112/70 O2 Sat by Pulse 95 Oximetry O2 Sat by Pulse Oximetry [ Assessment] 05/14/16 05/14/16 14:00 14:10 Temperature Pulse Rate 92 H Pulse Rate [ 90 Anterior Bilateral Throughout] Pulse Rate [ 90 Bilateral] Respiratory 35 H Rate Respiratory 19 Rate [Anterior Bilateral Throughout] Respiratory 19 Rate [Bilateral ] Blood Pressure 119/74 O2 Sat by Pulse 97 Oximetry O2 Sat by Pulse Oximetry [ Assessment] - General physical appearance no distress - Neck other (Trach site clean and dry) - Labs 05/14/16 04:31 05/14/16 04:31 Diabetes panel 05/14/16 Range/Units 04:31 Sodium 143 (137-145) mmol/L Potassium 4.5 (3.6-5.0) mmol/L Chloride 104.2 (98-107) mmol/L Carbon Dioxide 24 (22-30) mmol/L BUN 17 (9-20) mg/dL Creatinine 0.6 L (0.8-1.5) mg/dL Glucose 98 (75-100) mg/dL Calcium 8.7 (8.4-10.2) mg/dL Calcium panel 05/14/16 Range/Units 04:31 Calcium 8.7 (8.4-10.2) mg/dL Pituitary panel 05/14/16 Range/Units 04:31 Sodium 143 (137-145) mmol/L Potassium 4.5 (3.6-5.0) mmol/L Chloride 104.2 (98-107) mmol/L Carbon Dioxide 24 (22-30) mmol/L BUN 17 (9-20) mg/dL Creatinine 0.6 L (0.8-1.5) mg/dL Glucose 98 (75-100) mg/dL Calcium 8.7 (8.4-10.2) mg/dL Adrenal panel 05/14/16 Range/Units 04:31 Sodium 143 (137-145) mmol/L Potassium 4.5 (3.6-5.0) mmol/L Chloride 104.2 (98-107) mmol/L Carbon Dioxide 24 (22-30) mmol/L BUN 17 (9-20) mg/dL Creatinine 0.6 L (0.8-1.5) mg/dL Glucose 98 (75-100) mg/dL Calcium 8.7 (8.4-10.2) mg/dL
--- NOTE | 2016-05-14 18:09 | Progress Note ---
Assessment and Plan Imp: 1. Acute CVA 2. Acute respiratory failure, hypoxia 3. S/p Trach 4. UTI 5. Sepsis 6. R/o Neck cellulitis per CT neck findings 7. Hypernatremia Rec: 1. No sedation 2. Consider resuming heparin again w/o bolus; agree if re-bleeds at trach/ hemoptysis would d/c permanently 3. Surgery f/u re: trach 4. Zosyn day #5 to cover UTI and any possible soft tissue infection of neck 5. Tpiece as tolerated 6. SCDs ordered 7. TFs/free water 8. Placement when able to secure benefits; hopeful to floor soon if can maintain on Tpiece No family present Subjective Date of service: 05/14/16 Principal diagnosis: CVA, acute respiratory failure Interval history: No hemoptysis. On Tpiece. Nonverbal. Active Medications Acetaminophen (Tylenol) 650 mg PO Q4H PRN PRN Reason: Pain MILD(1-3)/Fever >100.5/DUVAL Last Admin: 05/08/16 19:44 Dose: 650 mg Albuterol/Ipratropium (Duoneb 0.5 Mg-3 Mg/3 Ml Soln) 1 ampul IH Q6HRT [facility] Last Admin: 05/14/16 13:57 Dose: 1 ampul Amiodarone HCl (Cordarone) 200 mg PO DAILY [facility] Last Admin: 05/14/16 09:33 Dose: 200 mg Amlodipine Besylate (Norvasc) 10 mg PO DAILY [facility] Last Admin: 05/14/16 09:33 Dose: 10 mg Lipase/Protease/Amylase (Pancreaze Dr 10,500 Unit) 1 each FEEDTUBE PRN PRN PRN Reason: For Clogged Feeding Tube Atorvastatin Calcium (Lipitor) 10 mg PO QHS [facility] Last Admin: 05/13/16 22:56 Dose: 10 mg Bisacodyl (Dulcolax) 10 mg DE QDAY PRN PRN Reason: Constipation unrelieved by MOM Dextrose (D50w (25gm)) 50 ml IV PRN PRN PRN Reason: Hypoglycemia Last Admin: 05/13/16 17:35 Dose: 50 ml Famotidine (Pepcid) 20 mg PO BID [facility] Last Admin: 05/14/16 09:33 Dose: 20 mg Hydralazine HCl (Apresoline) 20 mg IV Q6H PRN PRN Reason: PRN SBP > 150 Last Admin: 04/23/16 00:38 Dose: 20 mg Hydrophilic Ointment (Vaseline Lip Therapy) 1 applic TP Q2HR PRN PRN Reason: Dry Lips Piperacillin Sod/Tazobactam Sod (Zosyn/Ns 4.5gm/100ml) 100 mls @ 200 mls/hr IV Q6HR [facility] Stop: 05/17/16 12:59 Last Admin: 05/14/16 12:30 Dose: 200 mls/hr Heparin Sodium/Sodium Chloride (Heparin/ 0.45% Nacl-25,000 Unit/500 Ml) 500 mls @ 18 mls/hr IV TITR ANA LUISA; 900 UNITS/HR PRN Reason: Protocol Last Titration: 05/13/16 12:55 Dose: 0 units/hr Insulin Aspart (Novolog) 0 units SUB-Q Q6HR ANA LUISA PRN Reason: Protocol Last Admin: 05/14/16 12:30 Dose: 3 units Insulin Detemir (Levemir) 40 units SUB-Q DAILY [facility] Last Admin: 05/13/16 09:01 Dose: 40 units Labetalol HCl (Normodyne) 400 mg PO TID [facility] Last Admin: 05/14/16 14:14 Dose: 400 mg Levetiracetam (Keppra) 500 mg PO BID [facility] Last Admin: 05/14/16 09:34 Dose: 500 mg Lisinopril (Zestril) 40 mg PO BID [facility] Last Admin: 05/14/16 09:33 Dose: 40 mg Magnesium Hydroxide (Milk Of Magnesia) 30 ml PO Q4H PRN PRN Reason: Constipation Last Admin: 04/25/16 06:21 Dose: 30 ml Metoclopramide HCl (Reglan) 5 mg IV Q6H PRN PRN Reason: TUBE FEED RESIDUAL Last Admin: 04/25/16 06:21 Dose: 5 mg Multi-Ingred Cream/Lotion/Oil/Oint (Artificial Tears Ophth Oint) 1 applic OU Q4HR PRN PRN Reason: Dry Eye(s) Ondansetron HCl (Zofran) 4 mg IV Q8H PRN PRN Reason: N/V unrelieved by Reglan Last Admin: 04/20/16 21:53 Dose: 4 mg Simple Syrup (Simple Syrup) 15 ml FEEDTUBE PRN PRN PRN Reason: Hypoglycemia Last Admin: 05/08/16 17:53 Dose: 15 ml Simple Syrup (Simple Syrup) 30 ml FEEDTUBE PRN PRN PRN Reason: Hypoglycemia Sodium Bicarbonate (Sodium Bicarbonate) 325 mg FEEDTUBE PRN PRN PRN Reason: For Clogged Feeding Tube Sodium Chloride (Nacl 0.9% 500 Ml) 1 ml IV DIRECT ANA LUISA Warfarin Sodium (Coumadin Pharmacy To Dose) 1 each PO PKCONSULT ANA LUISA PRN Reason: Protocol Objective Vital Signs - 12hr 05/14/16 05/14/16 05/14/16 06:07 07:00 07:32 Temperature Pulse Rate 80 81 Pulse Rate [ 87 Anterior Bilateral Throughout] Pulse Rate [ Bilateral] Respiratory 17 22 Rate Respiratory 27 H Rate [Anterior Bilateral Throughout] Respiratory Rate [Bilateral ] Blood Pressure 136/75 139/77 O2 Sat by Pulse 97 92 Oximetry O2 Sat by Pulse 95 Oximetry [ Assessment] 05/14/16 05/14/16 05/14/16 07:45 08:00 09:00 Temperature 98.3 F Pulse Rate 84 84 Pulse Rate [ 81 Anterior Bilateral Throughout] Pulse Rate [ Bilateral] Respiratory 24 30 H Rate Respiratory 23 Rate [Anterior Bilateral Throughout] Respiratory Rate [Bilateral ] Blood Pressure 142/87 148/91 O2 Sat by Pulse 97 99 Oximetry O2 Sat by Pulse Oximetry [ Assessment] 05/14/16 05/14/16 05/14/16 09:33 10:00 11:00 Temperature Pulse Rate 87 90 87 Pulse Rate [ Anterior Bilateral Throughout] Pulse Rate [ Bilateral] Respiratory 27 H 34 H Rate Respiratory Rate [Anterior Bilateral Throughout] Respiratory Rate [Bilateral ] Blood Pressure 148/91 129/77 112/66 O2 Sat by Pulse 99 95 Oximetry O2 Sat by Pulse Oximetry [ Assessment] 05/14/16 05/14/16 05/14/16 12:00 13:00 13:57 Temperature 98.8 F Pulse Rate 85 88 Pulse Rate [ 91 H Anterior Bilateral Throughout] Pulse Rate [ Bilateral] Respiratory 29 H 30 H Rate Respiratory 35 H Rate [Anterior Bilateral Throughout] Respiratory Rate [Bilateral ] Blood Pressure 114/69 112/70 O2 Sat by Pulse 96 Oximetry O2 Sat by Pulse Oximetry [ Assessment] 05/14/16 05/14/16 05/14/16 14:00 14:10 14:11 Temperature Pulse Rate 92 H 91 H Pulse Rate [ 90 Anterior Bilateral Throughout] Pulse Rate [ 90 Bilateral] Respiratory 35 H 32 H Rate Respiratory 19 Rate [Anterior Bilateral Throughout] Respiratory 19 Rate [Bilateral ] Blood Pressure 119/74 119/74 O2 Sat by Pulse 97 100 Oximetry O2 Sat by Pulse Oximetry [ Assessment] 05/14/16 05/14/16 05/14/16 15:00 16:00 17:00 Temperature 98.8 F Pulse Rate 85 87 91 H Pulse Rate [ Anterior Bilateral Throughout] Pulse Rate [ Bilateral] Respiratory 25 H 31 H 29 H Rate Respiratory Rate [Anterior Bilateral Throughout] Respiratory Rate [Bilateral ] Blood Pressure 121/74 112/70 122/77 O2 Sat by Pulse 99 93 97 Oximetry O2 Sat by Pulse Oximetry [ Assessment] Constitutional: no acute distress, other (opens eyes, not following commands for me) Eyes: non-icteric ENT: other (tracheotomy) Neck: supple, other (no bleeding at trach site) Effort: normal Ascultation: Bilateral: clear, rhonchi (occasional), other (coarse BS bilaterally) Percussion: Bilateral: not dull Cardiovascular: regular rate and rhythm (no mrg) Gastrointestinal: normoactive bowel sounds, soft, non-tender Extremities: no cyanosis, no edema Neurologic: other (eyes open, not following commands or moving extremities for me) Psychiatric: other (unable to assess) CBC and BMP: 05/14/16 04:31 05/14/16 04:31 ABG, PT/INR, D-dimer: ABG POC ABG pH 7.511 (7.35-7.45) H 05/06/16 05:30 POC ABG pCO2 36.2 (35-45) 05/06/16 05:30 POC ABG pO2 92 (80-105) 05/06/16 05:30 POC ABG HCO3 28.9 05/06/16 05:30 POC ABG Total CO2 30 05/06/16 05:30 POC ABG O2 Sat 98 05/06/16 05:30 PT/INR, D-dimer PT 13.8 Sec. (12.2-14.9) 05/12/16 11:01 INR 1.07 (0.87-1.13) 05/12/16 11:01 Abnormal lab findings: Abnormal Labs 1103/24/16 03/24/16 17:58 20:25 23:23 WBC RBC Hgb Hct MCV MCH MCHC RDW Plt Count Lymph % (Auto) [place] % (Auto) Lymph # [place] # Baso # Seg Neutrophils % Seg Neuts % (Manual) Lymphocytes % (Manual) Monocytes % (Manual) Seg Neutrophils # Seg Neutrophils # Man Lymphocytes # (Manual) Monocytes # (Manual) Basophils # (Manual) Percent Retic PT INR APTT Heparin Anti-Xa Level POC ABG pH POC ABG pCO2 POC ABG pO2 Sodium 169 H* Potassium 3.5 L Chloride 130.3 H Carbon Dioxide BUN 28 H Creatinine 1.8 H Glucose POC Glucose 112 H Calcium Phosphorus Iron TIBC Lactate Dehydrogenase Total Creatine Kinase NT-Pro-B Natriuret Pep Total Protein Albumin Hskhq-0-Ipbmpxldz Lnclf-4-Mjxjksyrg Beta Globulins PEP Interpretation Cholesterol 221 H LDL Cholesterol Direct 146 H Vitamin B12 Urine WBC (Auto) Urine Creatinine Crossmatch 03/25/16 03/25/16 03/25/16 05:56 05:56 05:56 WBC 21.3 H RBC 6.32 H Hgb 16.7 H Hct 52.7 H MCV 83 L MCH 27 L MCHC RDW Plt Count Lymph % (Auto) [place] % (Auto) Lymph # [place] # Baso # Seg Neutrophils % Seg Neuts % (Manual) 91.0 H Lymphocytes % (Manual) 4.0 L Monocytes % (Manual) Seg Neutrophils # Seg Neutrophils # Man 19.4 H Lymphocytes # (Manual) 0.9 L Monocytes # (Manual) 0.9 H Basophils # (Manual) Percent Retic PT INR APTT Heparin Anti-Xa Level POC ABG pH POC ABG pCO2 POC ABG pO2 Sodium 172 H* Potassium 3.5 L Chloride 130.4 H Carbon Dioxide BUN 29 H Creatinine 1.8 H Glucose 187 H POC Glucose Calcium Phosphorus Iron TIBC Lactate Dehydrogenase 460 H Total Creatine Kinase NT-Pro-B Natriuret Pep Total Protein Albumin Gwklx-9-Ghnskzqeq Ikcaa-1-Aaeakganx Beta Globulins PEP Interpretation Cholesterol LDL Cholesterol Direct Vitamin B12 Urine WBC (Auto) Urine Creatinine Crossmatch 03/25/16 03/25/16 03/25/16 07:55 12:19 13:00 WBC RBC Hgb Hct MCV MCH MCHC RDW Plt Count Lymph % (Auto) [place] % (Auto) Lymph # [place] # Baso # Seg Neutrophils % Seg Neuts % (Manual) Lymphocytes % (Manual) Monocytes % (Manual) Seg Neutrophils # Seg Neutrophils # Man Lymphocytes # (Manual) Monocytes # (Manual) Basophils # (Manual) Percent Retic PT INR APTT Heparin Anti-Xa Level POC ABG pH POC ABG pCO2 POC ABG pO2 Sodium Potassium Chloride Carbon Dioxide BUN Creatinine Glucose POC Glucose 231 H 314 H Calcium Phosphorus Iron TIBC Lactate Dehydrogenase Total Creatine Kinase NT-Pro-B Natriuret Pep Total Protein Albumin 3.4 L Rbnni-8-Mujbbacwb 0.4 H Reevf-8-Yimuetnxx 1.1 H Beta Globulins 0.6 H PEP Interpretation see below H Cholesterol LDL Cholesterol Direct Vitamin B12 Urine WBC (Auto) Urine Creatinine Crossmatch 03/25/16 03/25/16 03/26/16 16:41 22:45 08:32 WBC RBC Hgb Hct MCV MCH MCHC RDW Plt Count Lymph % (Auto) [place] % (Auto) Lymph # [place] # Baso # Seg Neutrophils % Seg Neuts % (Manual) Lymphocytes % (Manual) Monocytes % (Manual) Seg Neutrophils # Seg Neutrophils # Man Lymphocytes # (Manual) Monocytes # (Manual) Basophils # (Manual) Percent Retic PT INR APTT Heparin Anti-Xa Level POC ABG pH POC ABG pCO2 POC ABG pO2 Sodium Potassium Chloride Carbon Dioxide BUN Creatinine Glucose POC Glucose 444 H 326 H 360 H Calcium Phosphorus Iron TIBC Lactate Dehydrogenase Total Creatine Kinase NT-Pro-B Natriuret Pep Total Protein Albumin Rpzpa-9-Ptvqqzhlz Rrzxp-4-Nimyfqncy Beta Globulins PEP Interpretation Cholesterol LDL Cholesterol Direct Vitamin B12 Urine WBC (Auto) Urine Creatinine Crossmatch 03/26/16 03/26/16 03/26/16 12:38 15:33 15:47 WBC RBC Hgb Hct MCV MCH MCHC RDW Plt Count Lymph % (Auto) [place] % (Auto) Lymph # [place] # Baso # Seg Neutrophils % Seg Neuts % (Manual) Lymphocytes % (Manual) Monocytes % (Manual) Seg Neutrophils # Seg Neutrophils # Man Lymphocytes # (Manual) Monocytes # (Manual) Basophils # (Manual) Percent Retic PT INR APTT Heparin Anti-Xa Level POC ABG pH 7.511 H POC ABG pCO2 26.5 L POC ABG pO2 70 L Sodium Potassium Chloride Carbon Dioxide BUN Creatinine Glucose POC Glucose 280 H 174 H Calcium Phosphorus Iron TIBC Lactate Dehydrogenase Total Creatine Kinase NT-Pro-B Natriuret Pep Total Protein Albumin Lxfhy-0-Hqprtqnjl Nufsd-5-Frjxseydt Beta Globulins PEP Interpretation Cholesterol LDL Cholesterol Direct Vitamin B12 Urine WBC (Auto) Urine Creatinine Crossmatch 03/26/16 03/26/16 03/26/16 16:47 16:47 18:51 WBC 14.0 H RBC 5.17 H Hgb Hct MCV MCH 26 L MCHC 31 L RDW Plt Count 139 L Lymph % (Auto) [place] % (Auto) Lymph # [place] # Baso # Seg Neutrophils % Seg Neuts % (Manual) Lymphocytes % (Manual) Monocytes % (Manual) Seg Neutrophils # Seg Neutrophils # Man Lymphocytes # (Manual) Monocytes # (Manual) Basophils # (Manual) Percent Retic PT INR APTT Heparin Anti-Xa Level POC ABG pH POC ABG pCO2 33.9 L POC ABG pO2 150 H Sodium 164 H* Potassium 3.4 L Chloride 128.5 H Carbon Dioxide BUN 30 H Creatinine 2.2 H Glucose 121 H POC Glucose Calcium 8.1 L Phosphorus Iron TIBC Lactate Dehydrogenase Total Creatine Kinase NT-Pro-B Natriuret Pep Total Protein Albumin Xvhew-6-Whxgbchrb Mqdle-1-Kshzsqjkp Beta Globulins PEP Interpretation Cholesterol LDL Cholesterol Direct Vitamin B12 Urine WBC (Auto) Urine Creatinine Crossmatch 03/27/16 03/27/16 03/27/16 02:19 05:47 06:02 WBC RBC Hgb Hct MCV MCH MCHC RDW Plt Count Lymph % (Auto) [place] % (Auto) Lymph # [place] # Baso # Seg Neutrophils % Seg Neuts % (Manual) Lymphocytes % (Manual) Monocytes % (Manual) Seg Neutrophils # Seg Neutrophils # Man Lymphocytes # (Manual) Monocytes # (Manual) Basophils # (Manual) Percent Retic PT INR APTT Heparin Anti-Xa Level POC ABG pH POC ABG pCO2 27.3 L 30.3 L POC ABG pO2 50 L 112 H Sodium 158 H Potassium Chloride 126.7 H Carbon Dioxide 20 L BUN 25 H Creatinine 1.7 H Glucose POC Glucose Calcium 7.0 L Phosphorus Iron TIBC Lactate Dehydrogenase Total Creatine Kinase NT-Pro-B Natriuret Pep Total Protein Albumin Zlosg-5-Dtyrvgwtr Fbnuf-1-Cgebzxzco Beta Globulins PEP Interpretation Cholesterol LDL Cholesterol Direct Vitamin B12 Urine WBC (Auto) Urine Creatinine Crossmatch 03/27/16 03/27/16 03/27/16 07:51 09:20 11:45 WBC 14.2 H RBC Hgb Hct MCV 83 L MCH 27 L MCHC RDW Plt Count 113 L Lymph % (Auto) [place] % (Auto) Lymph # [place] # Baso # Seg Neutrophils % Seg Neuts % (Manual) Lymphocytes % (Manual) Monocytes % (Manual) Seg Neutrophils # Seg Neutrophils # Man Lymphocytes # (Manual) Monocytes # (Manual) Basophils # (Manual) Percent Retic PT INR APTT Heparin Anti-Xa Level POC ABG pH POC ABG pCO2 POC ABG pO2 Sodium Potassium Chloride Carbon Dioxide BUN Creatinine Glucose POC Glucose 124 H 241 H Calcium Phosphorus Iron TIBC Lactate Dehydrogenase Total Creatine Kinase NT-Pro-B Natriuret Pep Total Protein Albumin Lyvmu-8-Zifdsqknd Bmmti-0-Xvqpfhofi Beta Globulins PEP Interpretation Cholesterol LDL Cholesterol Direct Vitamin B12 Urine WBC (Auto) Urine Creatinine Crossmatch 03/27/16 03/27/16 03/28/16 16:39 22:03 03:29 WBC RBC Hgb Hct MCV MCH MCHC RDW Plt Count Lymph % (Auto) [place] % (Auto) Lymph # [place] # Baso # Seg Neutrophils % Seg Neuts % (Manual) Lymphocytes % (Manual) Monocytes % (Manual) Seg Neutrophils # Seg Neutrophils # Man Lymphocytes # (Manual) Monocytes # (Manual) Basophils # (Manual) Percent Retic PT INR APTT Heparin Anti-Xa Level POC ABG pH POC ABG pCO2 POC ABG pO2 Sodium Potassium Chloride Carbon Dioxide BUN Creatinine Glucose POC Glucose 266 H 167 H 241 H Calcium Phosphorus Iron TIBC Lactate Dehydrogenase Total Creatine Kinase NT-Pro-B Natriuret Pep Total Protein Albumin Nodja-2-Cqbtoddiq Bainp-6-Fixfelpeg Beta Globulins PEP Interpretation Cholesterol LDL Cholesterol Direct Vitamin B12 Urine WBC (Auto) Urine Creatinine Crossmatch 03/28/16 03/28/16 03/28/16 05:00 05:00 05:00 WBC RBC Hgb Hct MCV 83 L MCH 27 L MCHC RDW Plt Count 106 L Lymph % (Auto) [place] % (Auto) 10.1 H Lymph # [place] # 1.0 H Baso # Seg Neutrophils % 75.1 H Seg Neuts % (Manual) Lymphocytes % (Manual) Monocytes % (Manual) Seg Neutrophils # Seg Neutrophils # Man Lymphocytes # (Manual) Monocytes # (Manual) Basophils # (Manual) Percent Retic PT INR APTT Heparin Anti-Xa Level POC ABG pH POC ABG pCO2 POC ABG pO2 Sodium 147 H D Potassium 3.1 L D Chloride 112.3 H Carbon Dioxide 21 L BUN Creatinine Glucose 208 H POC Glucose Calcium 7.0 L Phosphorus 2.2 L Iron TIBC Lactate Dehydrogenase Total Creatine Kinase NT-Pro-B Natriuret Pep Total Protein Albumin Oujqm-6-Ekbhsowmh Zcwhj-0-Tjdelgnvx Beta Globulins PEP Interpretation Cholesterol LDL Cholesterol Direct Vitamin B12 Urine WBC (Auto) Urine Creatinine Crossmatch 03/28/16 03/28/16 03/28/16 05:14 08:41 10:56 WBC RBC Hgb Hct MCV MCH MCHC RDW Plt Count Lymph % (Auto) [place] % (Auto) Lymph # [place] # Baso # Seg Neutrophils % Seg Neuts % (Manual) Lymphocytes % (Manual) Monocytes % (Manual) Seg Neutrophils # Seg Neutrophils # Man Lymphocytes # (Manual) Monocytes # (Manual) Basophils # (Manual) Percent Retic PT INR APTT Heparin Anti-Xa Level POC ABG pH 7.457 H POC ABG pCO2 29.7 L 27.7 L POC ABG pO2 Sodium Potassium Chloride Carbon Dioxide BUN Creatinine Glucose POC Glucose 228 H Calcium Phosphorus Iron TIBC Lactate Dehydrogenase Total Creatine Kinase NT-Pro-B Natriuret Pep Total Protein Albumin Eznlf-6-Xrlibuhsx Obrub-8-Fnjpdswji Beta Globulins PEP Interpretation Cholesterol LDL Cholesterol Direct Vitamin B12 Urine WBC (Auto) Urine Creatinine Crossmatch 03/28/16 03/28/16 03/28/16 11:37 13:29 16:22 WBC RBC Hgb Hct MCV MCH MCHC RDW Plt Count Lymph % (Auto) [place] % (Auto) Lymph # [place] # Baso # Seg Neutrophils % Seg Neuts % (Manual) Lymphocytes % (Manual) Monocytes % (Manual) Seg Neutrophils # Seg Neutrophils # Man Lymphocytes # (Manual) Monocytes # (Manual) Basophils # (Manual) Percent Retic PT INR APTT Heparin Anti-Xa Level POC ABG pH POC ABG pCO2 POC ABG pO2 Sodium Potassium Chloride Carbon Dioxide BUN Creatinine Glucose POC Glucose 226 H 200 H Calcium Phosphorus Iron TIBC Lactate Dehydrogenase Total Creatine Kinase 356 H NT-Pro-B Natriuret Pep Total Protein Albumin Zvawk-3-Ihowvultr Qvuzt-1-Snmfjaqsp Beta Globulins PEP Interpretation Cholesterol LDL Cholesterol Direct Vitamin B12 Urine WBC (Auto) Urine Creatinine Crossmatch 03/28/16 03/29/16 03/29/16 21:48 04:50 04:50 WBC RBC Hgb 11.5 L Hct 35.3 L MCV 81 L MCH 26 L MCHC RDW Plt Count 97 L Lymph % (Auto) [place] % (Auto) 11.7 H Lymph # [place] # 1.1 H Baso # Seg Neutrophils % Seg Neuts % (Manual) Lymphocytes % (Manual) Monocytes % (Manual) Seg Neutrophils # Seg Neutrophils # Man Lymphocytes # (Manual) Monocytes # (Manual) Basophils # (Manual) Percent Retic PT INR APTT Heparin Anti-Xa Level POC ABG pH POC ABG pCO2 POC ABG pO2 Sodium 136 L D Potassium 3.3 L Chloride Carbon Dioxide 20 L BUN Creatinine Glucose 386 H POC Glucose 188 H Calcium 6.8 L Phosphorus 1.6 L D Iron TIBC Lactate Dehydrogenase Total Creatine Kinase NT-Pro-B Natriuret Pep Total Protein Albumin Hnxoh-2-[place] Objfd-2-Kvhuggpbu Beta Globulins PEP Interpretation Cholesterol LDL Cholesterol Direct Vitamin B12 Urine WBC (Auto) Urine Creatinine Crossmatch 03/29/16 03/29/16 03/29/16 08:10 11:12 16:09 WBC RBC Hgb Hct MCV MCH MCHC RDW Plt Count Lymph % (Auto) [place] % (Auto) Lymph # [place] # Baso # Seg Neutrophils % Seg Neuts % (Manual) Lymphocytes % (Manual) Monocytes % (Manual) Seg Neutrophils # Seg Neutrophils # Man Lymphocytes # (Manual) Monocytes # (Manual) Basophils # (Manual) Percent Retic PT INR APTT Heparin Anti-Xa Level POC ABG pH POC ABG pCO2 POC ABG pO2 Sodium Potassium Chloride Carbon Dioxide BUN Creatinine Glucose POC Glucose 230 H 180 H 46 L Calcium Phosphorus Iron TIBC Lactate Dehydrogenase Total Creatine Kinase NT-Pro-B Natriuret Pep Total Protein Albumin Dqxqo-2-Kdxhqtoog Lpwwj-4-Bhrbhvnnv Beta Globulins PEP Interpretation Cholesterol LDL Cholesterol Direct Vitamin B12 Urine WBC (Auto) Urine Creatinine Crossmatch 03/29/16 03/29/16 03/30/16 16:12 18:15 02:53 WBC RBC Hgb Hct MCV MCH MCHC RDW Plt Count Lymph % (Auto) [place] % (Auto) Lymph # [place] # Baso # Seg Neutrophils % Seg Neuts % (Manual) Lymphocytes % (Manual) Monocytes % (Manual) Seg Neutrophils # Seg Neutrophils # Man Lymphocytes # (Manual) Monocytes # (Manual) Basophils # (Manual) Percent Retic PT INR APTT Heparin Anti-Xa Level POC ABG pH POC ABG pCO2 POC ABG pO2 Sodium Potassium Chloride Carbon Dioxide BUN Creatinine Glucose POC Glucose 52 L 118 H 130 H Calcium Phosphorus Iron TIBC Lactate Dehydrogenase Total Creatine Kinase NT-Pro-B Natriuret Pep Total Protein Albumin Auxwl-4-Sjlpbflwa Qyogp-8-Ntfsfjqbe Beta Globulins PEP Interpretation Cholesterol LDL Cholesterol Direct Vitamin B12 Urine WBC (Auto) Urine Creatinine Crossmatch 03/30/16 03/30/16 03/30/16 04:00 04:00 05:29 WBC RBC Hgb Hct MCV 81 L MCH 26 L MCHC RDW Plt Count 116 L Lymph % (Auto) 10.8 L [place] % (Auto) 13.1 H Lymph # 1.0 L [place] # 1.3 H Baso # Seg Neutrophils % 74.2 H Seg Neuts % (Manual) Lymphocytes % (Manual) Monocytes % (Manual) Seg Neutrophils # Seg Neutrophils # Man Lymphocytes # (Manual) Monocytes # (Manual) Basophils # (Manual) Percent Retic PT INR APTT Heparin Anti-Xa Level POC ABG pH 7.522 H POC ABG pCO2 22.7 L POC ABG pO2 137 H Sodium 147 H D Potassium Chloride 115.5 H Carbon Dioxide 20 L BUN Creatinine Glucose 116 H POC Glucose Calcium 7.6 L Phosphorus 2.3 L D Iron TIBC Lactate Dehydrogenase Total Creatine Kinase NT-Pro-B Natriuret Pep Total Protein Albumin Upvkp-1-Nbpiwwbee Kivpw-4-Flntokdlc Beta Globulins PEP Interpretation Cholesterol LDL Cholesterol Direct Vitamin B12 Urine WBC (Auto) Urine Creatinine Crossmatch 03/30/16 03/30/16 03/30/16 05:47 08:05 08:59 WBC RBC Hgb Hct MCV MCH MCHC RDW Plt Count Lymph % (Auto) [place] % (Auto) Lymph # [place] # Baso # Seg Neutrophils % Seg Neuts % (Manual) Lymphocytes % (Manual) Monocytes % (Manual) Seg Neutrophils # Seg Neutrophils # Man Lymphocytes # (Manual) Monocytes # (Manual) Basophils # (Manual) Percent Retic PT INR APTT Heparin Anti-Xa Level POC ABG pH POC ABG pCO2 26.2 L POC ABG pO2 115 H Sodium Potassium Chloride Carbon Dioxide BUN Creatinine Glucose POC Glucose 138 H 171 H Calcium Phosphorus Iron TIBC Lactate Dehydrogenase Total Creatine Kinase NT-Pro-B Natriuret Pep Total Protein Albumin Jzyon-7-Ftvzcfisw Ikxxt-7-Hdlecdqkh Beta Globulins PEP Interpretation Cholesterol LDL Cholesterol Direct Vitamin B12 Urine WBC (Auto) Urine Creatinine Crossmatch 03/30/16 03/30/16 03/30/16 12:11 12:11 16:39 WBC RBC Hgb Hct MCV MCH MCHC RDW Plt Count Lymph % (Auto) [place] % (Auto) Lymph # [place] # Baso # Seg Neutrophils % Seg Neuts % (Manual) Lymphocytes % (Manual) Monocytes % (Manual) Seg Neutrophils # Seg Neutrophils # Man Lymphocytes # (Manual) Monocytes # (Manual) Basophils # (Manual) Percent Retic PT INR APTT Heparin Anti-Xa Level POC ABG pH 7.476 H POC ABG pCO2 29.0 L POC ABG pO2 Sodium Potassium Chloride Carbon Dioxide BUN Creatinine Glucose POC Glucose 142 H 59 L Calcium Phosphorus Iron TIBC Lactate Dehydrogenase Total Creatine Kinase NT-Pro-B Natriuret Pep Total Protein Albumin Insqj-5-Fuzhstrfp Fsfle-7-Jobbreruq Beta Globulins PEP Interpretation Cholesterol LDL Cholesterol Direct Vitamin B12 Urine WBC (Auto) Urine Creatinine Crossmatch 03/30/16 03/30/16 03/31/16 18:41 21:59 05:02 WBC RBC Hgb Hct MCV MCH MCHC RDW Plt Count Lymph % (Auto) [place] % (Auto) Lymph # [place] # Baso # Seg Neutrophils % Seg Neuts % (Manual) Lymphocytes % (Manual) Monocytes % (Manual) Seg Neutrophils # Seg Neutrophils # Man Lymphocytes # (Manual) Monocytes # (Manual) Basophils # (Manual) Percent Retic PT INR APTT Heparin Anti-Xa Level POC ABG pH 7.519 H POC ABG pCO2 21.8 L POC ABG pO2 142 H Sodium Potassium Chloride Carbon Dioxide BUN Creatinine Glucose POC Glucose 145 H 154 H Calcium Phosphorus Iron TIBC Lactate Dehydrogenase Total Creatine Kinase NT-Pro-B Natriuret Pep Total Protein Albumin Dksvo-6-[place] Dqnlr-6-Lkqrcrvga Beta Globulins PEP Interpretation Cholesterol LDL Cholesterol Direct Vitamin B12 Urine WBC (Auto) Urine Creatinine Crossmatch 03/31/16 03/31/16 03/31/16 05:15 05:15 05:15 WBC 13.4 H RBC 5.21 H Hgb Hct MCV 81 L MCH 26 L MCHC RDW Plt Count Lymph % (Auto) 9.5 L [place] % (Auto) 14.0 H Lymph # [place] # 1.9 H Baso # Seg Neutrophils % 75.0 H Seg Neuts % (Manual) Lymphocytes % (Manual) Monocytes % (Manual) Seg Neutrophils # 10.1 H Seg Neutrophils # Man Lymphocytes # (Manual) Monocytes # (Manual) Basophils # (Manual) Percent Retic PT INR APTT Heparin Anti-Xa Level POC ABG pH POC ABG pCO2 POC ABG pO2 Sodium Potassium Chloride 108.5 H Carbon Dioxide 19 L BUN Creatinine Glucose 188 H POC Glucose Calcium Phosphorus Iron TIBC Lactate Dehydrogenase Total Creatine Kinase NT-Pro-B Natriuret Pep 1089 H Total Protein Albumin Kxvyg-6-Djwecerjh Pbqko-3-Fjnzcrwcd Beta Globulins PEP Interpretation Cholesterol LDL Cholesterol Direct Vitamin B12 Urine WBC (Auto) Urine Creatinine Crossmatch 03/31/16 03/31/16 03/31/16 07:23 11:12 15:20 WBC RBC Hgb Hct MCV MCH MCHC RDW Plt Count Lymph % (Auto) [place] % (Auto) Lymph # [place] # Baso # Seg Neutrophils % Seg Neuts % (Manual) Lymphocytes % (Manual) Monocytes % (Manual) Seg Neutrophils # Seg Neutrophils # Man Lymphocytes # (Manual) Monocytes # (Manual) Basophils # (Manual) Percent Retic PT INR APTT Heparin Anti-Xa Level POC ABG pH POC ABG pCO2 POC ABG pO2 Sodium Potassium Chloride Carbon Dioxide BUN Creatinine Glucose POC Glucose 233 H 228 H 208 H Calcium Phosphorus Iron TIBC Lactate Dehydrogenase Total Creatine Kinase NT-Pro-B Natriuret Pep Total Protein Albumin Jpddx-8-Yzlyofmhb Qjjua-3-Vmujdkkrx Beta Globulins PEP Interpretation Cholesterol LDL Cholesterol Direct Vitamin B12 Urine WBC (Auto) Urine Creatinine Crossmatch 03/31/16 04/01/16 04/01/16 21:27 04:41 05:35 WBC 12.1 H RBC Hgb Hct MCV 81 L MCH 26 L MCHC RDW Plt Count Lymph % (Auto) 8.5 L [place] % (Auto) 14.0 H Lymph # 1.0 L [place] # 1.7 H Baso # Seg Neutrophils % 76.2 H Seg Neuts % (Manual) Lymphocytes % (Manual) Monocytes % (Manual) Seg Neutrophils # 9.2 H Seg Neutrophils # Man Lymphocytes # (Manual) Monocytes # (Manual) Basophils # (Manual) Percent Retic PT INR APTT Heparin Anti-Xa Level POC ABG pH 7.455 H POC ABG pCO2 31.0 L POC ABG pO2 Sodium Potassium Chloride Carbon Dioxide BUN Creatinine Glucose POC Glucose 162 H Calcium Phosphorus Iron TIBC Lactate Dehydrogenase Total Creatine Kinase NT-Pro-B Natriuret Pep Total Protein Albumin Ppvbd-6-Teoyeyxsi Jacdw-2-Rrlwbmjys Beta Globulins PEP Interpretation Cholesterol LDL Cholesterol Direct Vitamin B12 Urine WBC (Auto) Urine Creatinine Crossmatch 04/01/16 04/01/16 04/01/16 05:35 08:44 12:49 WBC RBC Hgb Hct MCV MCH MCHC RDW Plt Count Lymph % (Auto) [place] % (Auto) Lymph # [place] # Baso # Seg Neutrophils % Seg Neuts % (Manual) Lymphocytes % (Manual) Monocytes % (Manual) Seg Neutrophils # Seg Neutrophils # Man Lymphocytes # (Manual) Monocytes # (Manual) Basophils # (Manual) Percent Retic PT INR APTT Heparin Anti-Xa Level POC ABG pH POC ABG pCO2 POC ABG pO2 Sodium Potassium Chloride Carbon Dioxide BUN Creatinine Glucose 256 H POC Glucose 257 H 279 H Calcium 8.0 L Phosphorus Iron TIBC Lactate Dehydrogenase Total Creatine Kinase NT-Pro-B Natriuret Pep 1205 H Total Protein Albumin Jpway-9-Odfiebvve Vekme-2-Onzvmubdc Beta Globulins PEP Interpretation Cholesterol LDL Cholesterol Direct Vitamin B12 Urine WBC (Auto) Urine Creatinine Crossmatch 04/01/16 04/02/16 04/02/16 18:12 00:42 04:17 WBC RBC Hgb Hct MCV MCH MCHC RDW Plt Count Lymph % (Auto) [place] % (Auto) Lymph # [place] # Baso # Seg Neutrophils % Seg Neuts % (Manual) Lymphocytes % (Manual) Monocytes % (Manual) Seg Neutrophils # Seg Neutrophils # Man Lymphocytes # (Manual) Monocytes # (Manual) Basophils # (Manual) Percent Retic PT INR APTT Heparin Anti-Xa Level POC ABG pH 7.582 H POC ABG pCO2 26.8 L POC ABG pO2 Sodium Potassium Chloride Carbon Dioxide BUN Creatinine Glucose POC Glucose 168 H 282 H Calcium Phosphorus Iron TIBC Lactate Dehydrogenase Total Creatine Kinase NT-Pro-B Natriuret Pep Total Protein Albumin Puhsu-5-Exvyiayhn Xdmyt-8-Bljtjwjnq Beta Globulins PEP Interpretation Cholesterol LDL Cholesterol Direct Vitamin B12 Urine WBC (Auto) Urine Creatinine Crossmatch 04/02/16 04/02/16 04/02/16 05:00 05:00 06:27 WBC 12.4 H RBC Hgb Hct MCV 81 L MCH 26 L MCHC RDW Plt Count Lymph % (Auto) 6.4 L [place] % (Auto) 13.3 H Lymph # 0.8 L [place] # 1.7 H Baso # Seg Neutrophils % 79.4 H Seg Neuts % (Manual) Lymphocytes % (Manual) Monocytes % (Manual) Seg Neutrophils # 9.9 H Seg Neutrophils # Man Lymphocytes # (Manual) Monocytes # (Manual) Basophils # (Manual) Percent Retic PT INR APTT Heparin Anti-Xa Level POC ABG pH POC ABG pCO2 POC ABG pO2 Sodium 146 H Potassium Chloride Carbon Dioxide BUN Creatinine Glucose 334 H POC Glucose 317 H Calcium 8.0 L Phosphorus Iron TIBC Lactate Dehydrogenase Total Creatine Kinase NT-Pro-B Natriuret Pep Total Protein Albumin Wdsvp-4-Cwosusoin Gcijm-1-Kjuxxopen Beta Globulins PEP Interpretation Cholesterol LDL Cholesterol Direct Vitamin B12 Urine WBC (Auto) Urine Creatinine Crossmatch 04/02/16 04/02/16 04/02/16 11:51 13:10 17:24 WBC RBC Hgb Hct MCV MCH MCHC RDW Plt Count Lymph % (Auto) [place] % (Auto) Lymph # [place] # Baso # Seg Neutrophils % Seg Neuts % (Manual) Lymphocytes % (Manual) Monocytes % (Manual) Seg Neutrophils # Seg Neutrophils # Man Lymphocytes # (Manual) Monocytes # (Manual) Basophils # (Manual) Percent Retic PT INR APTT Heparin Anti-Xa Level POC ABG pH 7.518 H POC ABG pCO2 POC ABG pO2 Sodium Potassium Chloride Carbon Dioxide BUN Creatinine Glucose POC Glucose 278 H 195 H Calcium Phosphorus Iron TIBC Lactate Dehydrogenase Total Creatine Kinase NT-Pro-B Natriuret Pep Total Protein Albumin Cbfta-5-Svbqzcgtp Dxwbx-4-Tvlujqqly Beta Globulins PEP Interpretation Cholesterol LDL Cholesterol Direct Vitamin B12 Urine WBC (Auto) Urine Creatinine Crossmatch 04/03/16 04/03/16 04/03/16 00:18 04:10 04:10 WBC 14.3 H RBC Hgb Hct MCV 81 L MCH 26 L MCHC RDW Plt Count Lymph % (Auto) 9.0 L [place] % (Auto) 10.7 H Lymph # [place] # 1.5 H Baso # 0.2 H Seg Neutrophils % 78.5 H Seg Neuts % (Manual) Lymphocytes % (Manual) Monocytes % (Manual) Seg Neutrophils # 11.3 H Seg Neutrophils # Man Lymphocytes # (Manual) Monocytes # (Manual) Basophils # (Manual) Percent Retic PT INR APTT Heparin Anti-Xa Level POC ABG pH POC ABG pCO2 POC ABG pO2 Sodium 148 H Potassium Chloride 108.1 H Carbon Dioxide BUN 21 H Creatinine Glucose 227 H POC Glucose 144 H Calcium 8.2 L Phosphorus Iron TIBC Lactate Dehydrogenase Total Creatine Kinase NT-Pro-B Natriuret Pep Total Protein Albumin Qbufp-3-Kuvqhombr Gkixe-3-Yecrtzpyy Beta Globulins PEP Interpretation Cholesterol LDL Cholesterol Direct Vitamin B12 Urine WBC (Auto) Urine Creatinine Crossmatch 04/03/16 04/03/16 04/04/16 11:14 17:10 04:00 WBC 14.5 H RBC Hgb Hct MCV 81 L MCH 26 L MCHC RDW Plt Count Lymph % (Auto) 7.2 L [place] % (Auto) 7.6 H Lymph # 1.0 L [place] # 1.1 H Baso # Seg Neutrophils % 84.5 H Seg Neuts % (Manual) Lymphocytes % (Manual) Monocytes % (Manual) Seg Neutrophils # 12.3 H Seg Neutrophils # Man Lymphocytes # (Manual) Monocytes # (Manual) Basophils # (Manual) Percent Retic PT INR APTT Heparin Anti-Xa Level POC ABG pH POC ABG pCO2 POC ABG pO2 Sodium Potassium Chloride Carbon Dioxide BUN Creatinine Glucose POC Glucose 267 H 212 H Calcium Phosphorus Iron TIBC Lactate Dehydrogenase Total Creatine Kinase NT-Pro-B Natriuret Pep Total Protein Albumin Lzrle-3-Tekekxrmk Euxss-4-Brmstrapw Beta Globulins PEP Interpretation Cholesterol LDL Cholesterol Direct Vitamin B12 Urine WBC (Auto) Urine Creatinine Crossmatch 04/04/16 04/04/16 04/04/16 05:00 09:55 09:55 WBC RBC Hgb 11.5 L Hct MCV MCH MCHC RDW Plt Count Lymph % (Auto) [place] % (Auto) Lymph # [place] # Baso # Seg Neutrophils % Seg Neuts % (Manual) Lymphocytes % (Manual) Monocytes % (Manual) Seg Neutrophils # Seg Neutrophils # Man Lymphocytes # (Manual) Monocytes # (Manual) Basophils # (Manual) Percent Retic PT INR APTT 42.1 H Heparin Anti-Xa Level POC ABG pH POC ABG pCO2 POC ABG pO2 Sodium 146 H Potassium Chloride Carbon Dioxide BUN 22 H Creatinine Glucose 128 H POC Glucose Calcium Phosphorus Iron TIBC Lactate Dehydrogenase Total Creatine Kinase NT-Pro-B Natriuret Pep Total Protein Albumin Uzncp-4-Kusxeeesc Rcbjm-0-Egpsrttqp Beta Globulins PEP Interpretation Cholesterol LDL Cholesterol Direct Vitamin B12 Urine WBC (Auto) Urine Creatinine Crossmatch 04/04/16 04/04/16 04/04/16 11:45 17:49 17:55 WBC RBC Hgb Hct MCV MCH MCHC RDW Plt Count Lymph % (Auto) [place] % (Auto) Lymph # [place] # Baso # Seg Neutrophils % Seg Neuts % (Manual) Lymphocytes % (Manual) Monocytes % (Manual) Seg Neutrophils # Seg Neutrophils # Man Lymphocytes # (Manual) Monocytes # (Manual) Basophils # (Manual) Percent Retic PT INR APTT Heparin Anti-Xa Level 1.19 H POC ABG pH POC ABG pCO2 POC ABG pO2 Sodium Potassium Chloride Carbon Dioxide BUN Creatinine Glucose POC Glucose 231 H 186 H Calcium Phosphorus Iron TIBC Lactate Dehydrogenase Total Creatine Kinase NT-Pro-B Natriuret Pep Total Protein Albumin Dfusg-9-Bidhkowrn Zqtcu-1-Ofvniqgjd Beta Globulins PEP Interpretation Cholesterol LDL Cholesterol Direct Vitamin B12 Urine WBC (Auto) Urine Creatinine Crossmatch 04/05/16 04/05/16 04/05/16 00:35 05:32 05:42 WBC RBC Hgb Hct MCV MCH MCHC RDW Plt Count Lymph % (Auto) [place] % (Auto) Lymph # [place] # Baso # Seg Neutrophils % Seg Neuts % (Manual) Lymphocytes % (Manual) Monocytes % (Manual) Seg Neutrophils # Seg Neutrophils # Man Lymphocytes # (Manual) Monocytes # (Manual) Basophils # (Manual) Percent Retic PT INR APTT Heparin Anti-Xa Level POC ABG pH 7.491 H POC ABG pCO2 POC ABG pO2 Sodium Potassium Chloride Carbon Dioxide BUN Creatinine Glucose POC Glucose 192 H 242 H Calcium Phosphorus Iron TIBC Lactate Dehydrogenase Total Creatine Kinase NT-Pro-B Natriuret Pep Total Protein Albumin Lgbjj-7-Wmfvzqjwq Xvvkh-7-Jxdgdwmyn Beta Globulins PEP Interpretation Cholesterol LDL Cholesterol Direct Vitamin B12 Urine WBC (Auto) Urine Creatinine Crossmatch 04/05/16 04/05/16 04/05/16 06:20 06:20 12:19 WBC 13.9 H RBC Hgb 11.6 L Hct MCV 81 L MCH 26 L MCHC RDW Plt Count Lymph % (Auto) 9.6 L [place] % (Auto) 8.7 H Lymph # [place] # 1.2 H Baso # Seg Neutrophils % 80.9 H Seg Neuts % (Manual) Lymphocytes % (Manual) Monocytes % (Manual) Seg Neutrophils # 11.3 H Seg Neutrophils # Man Lymphocytes # (Manual) Monocytes # (Manual) Basophils # (Manual) Percent Retic PT INR APTT Heparin Anti-Xa Level POC ABG pH POC ABG pCO2 POC ABG pO2 Sodium 148 H Potassium Chloride Carbon Dioxide BUN 23 H Creatinine Glucose 242 H POC Glucose 187 H Calcium Phosphorus Iron TIBC Lactate Dehydrogenase Total Creatine Kinase NT-Pro-B Natriuret Pep Total Protein Albumin Inyex-1-Uplrwypuy Egruj-0-Nffgeaohr Beta Globulins PEP Interpretation Cholesterol LDL Cholesterol Direct Vitamin B12 Urine WBC (Auto) Urine Creatinine Crossmatch 04/05/16 04/05/16 04/06/16 17:10 23:45 05:23 WBC 13.0 H RBC Hgb Hct MCV 82 L MCH 26 L MCHC 31 L RDW Plt Count Lymph % (Auto) 6.7 L [place] % (Auto) 8.3 H Lymph # 0.9 L [place] # 1.1 H Baso # Seg Neutrophils % 84.6 H Seg Neuts % (Manual) Lymphocytes % (Manual) Monocytes % (Manual) Seg Neutrophils # 11.0 H Seg Neutrophils # Man Lymphocytes # (Manual) Monocytes # (Manual) Basophils # (Manual) Percent Retic PT INR APTT Heparin Anti-Xa Level POC ABG pH POC ABG pCO2 POC ABG pO2 Sodium Potassium Chloride Carbon Dioxide BUN Creatinine Glucose POC Glucose 169 H 202 H Calcium Phosphorus Iron TIBC Lactate Dehydrogenase Total Creatine Kinase NT-Pro-B Natriuret Pep Total Protein Albumin Etagw-9-Qbdttornf Yyxdy-2-Fawfsrbin Beta Globulins PEP Interpretation Cholesterol LDL Cholesterol Direct Vitamin B12 Urine WBC (Auto) Urine Creatinine Crossmatch 04/06/16 04/06/16 04/06/16 05:23 05:23 06:11 WBC RBC Hgb Hct MCV MCH MCHC RDW Plt Count Lymph % (Auto) [place] % (Auto) Lymph # [place] # Baso # Seg Neutrophils % Seg Neuts % (Manual) Lymphocytes % (Manual) Monocytes % (Manual) Seg Neutrophils # Seg Neutrophils # Man Lymphocytes # (Manual) Monocytes # (Manual) Basophils # (Manual) Percent Retic PT INR APTT Heparin Anti-Xa Level 0.21 L POC ABG pH POC ABG pCO2 POC ABG pO2 Sodium 153 H Potassium Chloride 111.3 H Carbon Dioxide BUN 22 H Creatinine Glucose 62 L POC Glucose 56 L Calcium Phosphorus Iron TIBC Lactate Dehydrogenase Total Creatine Kinase NT-Pro-B Natriuret Pep Total Protein Albumin Idnup-5-Labyzlssw Bnifp-9-Rfflatway Beta Globulins PEP Interpretation Cholesterol LDL Cholesterol Direct Vitamin B12 Urine WBC (Auto) Urine Creatinine Crossmatch 04/06/16 04/06/16 04/06/16 06:52 11:36 14:58 WBC RBC Hgb Hct MCV MCH MCHC RDW Plt Count Lymph % (Auto) [place] % (Auto) Lymph # [place] # Baso # Seg Neutrophils % Seg Neuts % (Manual) Lymphocytes % (Manual) Monocytes % (Manual) Seg Neutrophils # Seg Neutrophils # Man Lymphocytes # (Manual) Monocytes # (Manual) Basophils # (Manual) Percent Retic PT INR APTT Heparin Anti-Xa Level POC ABG pH POC ABG pCO2 POC ABG pO2 Sodium Potassium Chloride Carbon Dioxide BUN Creatinine Glucose POC Glucose 206 H 139 H 147 H Calcium Phosphorus Iron TIBC Lactate Dehydrogenase Total Creatine Kinase NT-Pro-B Natriuret Pep Total Protein Albumin Trffn-9-Ofkcptxwg Wkxga-0-Bjeptuvga Beta Globulins PEP Interpretation Cholesterol LDL Cholesterol Direct Vitamin B12 Urine WBC (Auto) Urine Creatinine Crossmatch 04/06/16 04/06/16 04/06/16 16:03 21:18 23:53 WBC RBC Hgb Hct MCV MCH MCHC RDW Plt Count Lymph % (Auto) [place] % (Auto) Lymph # [place] # Baso # Seg Neutrophils % Seg Neuts % (Manual) Lymphocytes % (Manual) Monocytes % (Manual) Seg Neutrophils # Seg Neutrophils # Man Lymphocytes # (Manual) Monocytes # (Manual) Basophils # (Manual) Percent Retic PT INR APTT Heparin Anti-Xa Level POC ABG pH POC ABG pCO2 POC ABG pO2 Sodium Potassium Chloride Carbon Dioxide BUN Creatinine Glucose POC Glucose 154 H 293 H 301 H Calcium Phosphorus Iron TIBC Lactate Dehydrogenase Total Creatine Kinase NT-Pro-B Natriuret Pep Total Protein Albumin Gcloc-4-Vctvphvgm Jtujq-2-Zfjahlcrm Beta Globulins PEP Interpretation Cholesterol LDL Cholesterol Direct Vitamin B12 Urine WBC (Auto) Urine Creatinine Crossmatch 04/07/16 04/07/16 04/07/16 02:30 05:11 05:11 WBC 12.5 H RBC Hgb 11.5 L Hct MCV 82 L MCH 26 L MCHC 31 L RDW Plt Count Lymph % (Auto) [place] % (Auto) Lymph # [place] # Baso # Seg Neutrophils % Seg Neuts % (Manual) Lymphocytes % (Manual) Monocytes % (Manual) Seg Neutrophils # Seg Neutrophils # Man Lymphocytes # (Manual) Monocytes # (Manual) Basophils # (Manual) Percent Retic PT INR APTT Heparin Anti-Xa Level 0.11 L POC ABG pH POC ABG pCO2 POC ABG pO2 Sodium 150 H Potassium Chloride 109.5 H Carbon Dioxide BUN 28 H Creatinine Glucose 264 H POC Glucose Calcium Phosphorus Iron TIBC Lactate Dehydrogenase Total Creatine Kinase NT-Pro-B Natriuret Pep Total Protein Albumin Mlzhv-8-Qmbgvwcgn Ddfyf-0-Ajtooafcz Beta Globulins PEP Interpretation Cholesterol LDL Cholesterol Direct Vitamin B12 Urine WBC (Auto) Urine Creatinine Crossmatch 04/07/16 04/07/16 04/07/16 06:46 10:18 11:50 WBC RBC Hgb Hct MCV MCH MCHC RDW Plt Count Lymph % (Auto) [place] % (Auto) Lymph # [place] # Baso # Seg Neutrophils % Seg Neuts % (Manual) Lymphocytes % (Manual) Monocytes % (Manual) Seg Neutrophils # Seg Neutrophils # Man Lymphocytes # (Manual) Monocytes # (Manual) Basophils # (Manual) Percent Retic PT 15.1 H INR 1.20 H APTT Heparin Anti-Xa Level POC ABG pH POC ABG pCO2 POC ABG pO2 Sodium Potassium Chloride Carbon Dioxide BUN Creatinine Glucose POC Glucose 259 H 288 H Calcium Phosphorus Iron TIBC Lactate Dehydrogenase Total Creatine Kinase NT-Pro-B Natriuret Pep Total Protein Albumin Egsez-3-Acmupsymq Czswx-9-Xfldtdhqw Beta Globulins PEP Interpretation Cholesterol LDL Cholesterol Direct Vitamin B12 Urine WBC (Auto) Urine Creatinine Crossmatch 04/07/16 04/08/16 04/08/16 17:58 01:25 06:49 WBC RBC Hgb Hct MCV MCH MCHC RDW Plt Count Lymph % (Auto) [place] % (Auto) Lymph # [place] # Baso # Seg Neutrophils % Seg Neuts % (Manual) Lymphocytes % (Manual) Monocytes % (Manual) Seg Neutrophils # Seg Neutrophils # Man Lymphocytes # (Manual) Monocytes # (Manual) Basophils # (Manual) Percent Retic PT INR APTT Heparin Anti-Xa Level POC ABG pH POC ABG pCO2 POC ABG pO2 Sodium 156 H Potassium Chloride 114.7 H Carbon Dioxide BUN 33 H Creatinine Glucose 169 H POC Glucose 330 H 146 H Calcium Phosphorus Iron TIBC Lactate Dehydrogenase Total Creatine Kinase NT-Pro-B Natriuret Pep Total Protein Albumin Ivodo-7-Kaxuvfqrr Kotiy-4-Dycbfxhey Beta Globulins PEP Interpretation Cholesterol LDL Cholesterol Direct Vitamin B12 Urine WBC (Auto) Urine Creatinine Crossmatch 04/08/16 04/08/16 04/08/16 07:34 10:28 10:28 WBC RBC Hgb Hct MCV MCH MCHC RDW Plt Count Lymph % (Auto) [place] % (Auto) Lymph # [place] # Baso # Seg Neutrophils % Seg Neuts % (Manual) Lymphocytes % (Manual) Monocytes % (Manual) Seg Neutrophils # Seg Neutrophils # Man Lymphocytes # (Manual) Monocytes # (Manual) Basophils # (Manual) Percent Retic PT 15.5 H INR 1.24 H APTT Heparin Anti-Xa Level 0.24 L POC ABG pH POC ABG pCO2 POC ABG pO2 Sodium Potassium Chloride Carbon Dioxide BUN Creatinine Glucose POC Glucose 232 H Calcium Phosphorus Iron TIBC Lactate Dehydrogenase Total Creatine Kinase NT-Pro-B Natriuret Pep Total Protein Albumin Eidro-5-Htgoohpki Hgelz-8-Bdtcidamk Beta Globulins PEP Interpretation Cholesterol LDL Cholesterol Direct Vitamin B12 Urine WBC (Auto) Urine Creatinine Crossmatch 04/08/16 04/08/16 04/09/16 11:36 15:38 00:01 WBC RBC Hgb Hct MCV MCH MCHC RDW Plt Count Lymph % (Auto) [place] % (Auto) Lymph # [place] # Baso # Seg Neutrophils % Seg Neuts % (Manual) Lymphocytes % (Manual) Monocytes % (Manual) Seg Neutrophils # Seg Neutrophils # Man Lymphocytes # (Manual) Monocytes # (Manual) Basophils # (Manual) Percent Retic PT INR APTT Heparin Anti-Xa Level POC ABG pH POC ABG pCO2 POC ABG pO2 Sodium Potassium Chloride Carbon Dioxide BUN Creatinine Glucose POC Glucose 193 H 163 H 180 H Calcium Phosphorus Iron TIBC Lactate Dehydrogenase Total Creatine Kinase NT-Pro-B Natriuret Pep Total Protein Albumin Zirns-0-Qpvpvohio Gtucp-0-Moetayznr Beta Globulins PEP Interpretation Cholesterol LDL Cholesterol Direct Vitamin B12 Urine WBC (Auto) Urine Creatinine Crossmatch 04/09/16 04/09/16 04/09/16 06:17 06:42 06:42 WBC RBC Hgb Hct MCV MCH MCHC RDW Plt Count Lymph % (Auto) [place] % (Auto) Lymph # [place] # Baso # Seg Neutrophils % Seg Neuts % (Manual) Lymphocytes % (Manual) Monocytes % (Manual) Seg Neutrophils # Seg Neutrophils # Man Lymphocytes # (Manual) Monocytes # (Manual) Basophils # (Manual) Percent Retic PT 17.4 H INR 1.43 H APTT Heparin Anti-Xa Level POC ABG pH POC ABG pCO2 POC ABG pO2 Sodium 153 H Potassium Chloride 113.2 H Carbon Dioxide BUN 29 H Creatinine Glucose 301 H POC Glucose 249 H Calcium 8.3 L Phosphorus Iron TIBC Lactate Dehydrogenase Total Creatine Kinase NT-Pro-B Natriuret Pep Total Protein Albumin Dlbny-3-Qhjxogohr Tlmcq-0-Dftxvjkna Beta Globulins PEP Interpretation Cholesterol LDL Cholesterol Direct Vitamin B12 Urine WBC (Auto) Urine Creatinine Crossmatch 04/09/16 04/09/16 04/09/16 07:37 11:26 15:45 WBC RBC Hgb Hct MCV MCH MCHC RDW Plt Count Lymph % (Auto) [place] % (Auto) Lymph # [place] # Baso # Seg Neutrophils % Seg Neuts % (Manual) Lymphocytes % (Manual) Monocytes % (Manual) Seg Neutrophils # Seg Neutrophils # Man Lymphocytes # (Manual) Monocytes # (Manual) Basophils # (Manual) Percent Retic PT INR APTT Heparin Anti-Xa Level POC ABG pH POC ABG pCO2 POC ABG pO2 Sodium Potassium Chloride Carbon Dioxide BUN Creatinine Glucose POC Glucose 283 H 306 H 354 H Calcium Phosphorus Iron TIBC Lactate Dehydrogenase Total Creatine Kinase NT-Pro-B Natriuret Pep Total Protein Albumin Bbrgt-8-Mvrhkeyfs Lidsy-7-Isfexjqnx Beta Globulins PEP Interpretation Cholesterol LDL Cholesterol Direct Vitamin B12 Urine WBC (Auto) Urine Creatinine Crossmatch 04/10/16 04/10/16 04/10/16 00:53 07:15 07:34 WBC RBC Hgb 11.3 L Hct MCV MCH MCHC RDW Plt Count Lymph % (Auto) [place] % (Auto) Lymph # [place] # Baso # Seg Neutrophils % Seg Neuts % (Manual) Lymphocytes % (Manual) Monocytes % (Manual) Seg Neutrophils # Seg Neutrophils # Man Lymphocytes # (Manual) Monocytes # (Manual) Basophils # (Manual) Percent Retic PT INR APTT Heparin Anti-Xa Level POC ABG pH POC ABG pCO2 POC ABG pO2 Sodium Potassium Chloride Carbon Dioxide BUN Creatinine Glucose POC Glucose 323 H 311 H Calcium Phosphorus Iron TIBC Lactate Dehydrogenase Total Creatine Kinase NT-Pro-B Natriuret Pep Total Protein Albumin Fokzf-2-Ezaasqyrz Aqhqo-7-Hzvbqqyzz Beta Globulins PEP Interpretation Cholesterol LDL Cholesterol Direct Vitamin B12 Urine WBC (Auto) Urine Creatinine Crossmatch 04/10/16 04/10/16 04/10/16 07:34 07:34 11:25 WBC RBC Hgb Hct MCV MCH MCHC RDW Plt Count Lymph % (Auto) [place] % (Auto) Lymph # [place] # Baso # Seg Neutrophils % Seg Neuts % (Manual) Lymphocytes % (Manual) Monocytes % (Manual) Seg Neutrophils # Seg Neutrophils # Man Lymphocytes # (Manual) Monocytes # (Manual) Basophils # (Manual) Percent Retic PT 17.3 H INR 1.42 H APTT Heparin Anti-Xa Level POC ABG pH POC ABG pCO2 POC ABG pO2 Sodium 158 H Potassium Chloride 118.6 H Carbon Dioxide BUN 30 H Creatinine Glucose 330 H POC Glucose 335 H Calcium 8.3 L Phosphorus Iron TIBC Lactate Dehydrogenase Total Creatine Kinase NT-Pro-B Natriuret Pep Total Protein Albumin Ubkgr-5-Hibmiuhyk Qxnnt-6-Uihoxtbju Beta Globulins PEP Interpretation Cholesterol LDL Cholesterol Direct Vitamin B12 Urine WBC (Auto) Urine Creatinine Crossmatch 04/10/16 04/11/16 04/11/16 16:21 00:29 07:47 WBC RBC Hgb Hct MCV MCH MCHC RDW Plt Count Lymph % (Auto) [place] % (Auto) Lymph # [place] # Baso # Seg Neutrophils % Seg Neuts % (Manual) Lymphocytes % (Manual) Monocytes % (Manual) Seg Neutrophils # Seg Neutrophils # Man Lymphocytes # (Manual) Monocytes # (Manual) Basophils # (Manual) Percent Retic PT 18.4 H INR 1.53 H APTT Heparin Anti-Xa Level POC ABG pH POC ABG pCO2 POC ABG pO2 Sodium Potassium Chloride Carbon Dioxide BUN Creatinine Glucose POC Glucose 230 H 162 H Calcium Phosphorus Iron TIBC Lactate Dehydrogenase Total Creatine Kinase NT-Pro-B Natriuret Pep Total Protein Albumin Sxpsb-9-Szzghdnwz Bvrps-1-Znedylopv Beta Globulins PEP Interpretation Cholesterol LDL Cholesterol Direct Vitamin B12 Urine WBC (Auto) Urine Creatinine Crossmatch 04/11/16 04/11/16 04/12/16 07:47 11:22 04:54 WBC RBC Hgb 11.0 L Hct 35.0 L MCV MCH MCHC RDW Plt Count Lymph % (Auto) [place] % (Auto) Lymph # [place] # Baso # Seg Neutrophils % Seg Neuts % (Manual) Lymphocytes % (Manual) Monocytes % (Manual) Seg Neutrophils # Seg Neutrophils # Man Lymphocytes # (Manual) Monocytes # (Manual) Basophils # (Manual) Percent Retic PT INR APTT Heparin Anti-Xa Level POC ABG pH POC ABG pCO2 POC ABG pO2 Sodium 155 H Potassium Chloride 114.5 H Carbon Dioxide BUN 23 H Creatinine Glucose 157 H POC Glucose 229 H Calcium Phosphorus Iron TIBC Lactate Dehydrogenase Total Creatine Kinase NT-Pro-B Natriuret Pep Total Protein Albumin Gpjhl-2-Kzrnpdyoj Vectq-0-Qrcfzzmgr Beta Globulins PEP Interpretation Cholesterol LDL Cholesterol Direct Vitamin B12 Urine WBC (Auto) Urine Creatinine Crossmatch 04/12/16 04/12/16 04/12/16 04:54 04:54 05:57 WBC RBC Hgb Hct MCV MCH MCHC RDW Plt Count Lymph % (Auto) [place] % (Auto) Lymph # [place] # Baso # Seg Neutrophils % Seg Neuts % (Manual) Lymphocytes % (Manual) Monocytes % (Manual) Seg Neutrophils # Seg Neutrophils # Man Lymphocytes # (Manual) Monocytes # (Manual) Basophils # (Manual) Percent Retic PT 22.5 H INR 1.98 H APTT Heparin Anti-Xa Level 0.19 L POC ABG pH POC ABG pCO2 POC ABG pO2 Sodium 156 H Potassium Chloride 115.4 H Carbon Dioxide BUN 23 H Creatinine Glucose 143 H POC Glucose 194 H Calcium Phosphorus Iron TIBC Lactate Dehydrogenase Total Creatine Kinase NT-Pro-B Natriuret Pep Total Protein Albumin Jsilw-1-Vlxwjoauc Rsfdi-5-Hybeqohnv Beta Globulins PEP Interpretation Cholesterol LDL Cholesterol Direct Vitamin B12 Urine WBC (Auto) Urine Creatinine Crossmatch 04/12/16 04/12/16 04/12/16 12:34 19:01 23:30 WBC RBC Hgb Hct MCV MCH MCHC RDW Plt Count Lymph % (Auto) [place] % (Auto) Lymph # [place] # Baso # Seg Neutrophils % Seg Neuts % (Manual) Lymphocytes % (Manual) Monocytes % (Manual) Seg Neutrophils # Seg Neutrophils # Man Lymphocytes # (Manual) Monocytes # (Manual) Basophils # (Manual) Percent Retic PT INR APTT Heparin Anti-Xa Level POC ABG pH POC ABG pCO2 POC ABG pO2 Sodium Potassium Chloride Carbon Dioxide BUN Creatinine Glucose POC Glucose 291 H 235 H 154 H Calcium Phosphorus Iron TIBC Lactate Dehydrogenase Total Creatine Kinase NT-Pro-B Natriuret Pep Total Protein Albumin [id number] [id number] Beta Globulins PEP Interpretation Cholesterol LDL Cholesterol Direct Vitamin B12 Urine WBC (Auto) Urine Creatinine Crossmatch 04/13/16 04/13/16 04/13/16 05:16 05:16 05:28 WBC RBC Hgb Hct MCV MCH MCHC RDW Plt Count Lymph % (Auto) [place] % (Auto) Lymph # [place] # Baso # Seg Neutrophils % Seg Neuts % (Manual) Lymphocytes % (Manual) Monocytes % (Manual) Seg Neutrophils # Seg Neutrophils # Man Lymphocytes # (Manual) Monocytes # (Manual) Basophils # (Manual) Percent Retic PT 27.0 H INR 2.49 H APTT Heparin Anti-Xa Level 0.20 L POC ABG pH POC ABG pCO2 POC ABG pO2 Sodium 150 H Potassium Chloride 110.5 H Carbon Dioxide BUN 21 H Creatinine Glucose 159 H POC Glucose 177 H Calcium Phosphorus Iron TIBC Lactate Dehydrogenase Total Creatine Kinase NT-Pro-B Natriuret Pep Total Protein Albumin Tvofx-7-Dytkkbxer Djusv-0-Pmshfzuvc Beta Globulins PEP Interpretation Cholesterol LDL Cholesterol Direct Vitamin B12 Urine WBC (Auto) Urine Creatinine Crossmatch 04/13/16 04/13/16 04/14/16 11:30 17:54 00:44 WBC RBC Hgb Hct MCV MCH MCHC RDW Plt Count Lymph % (Auto) [place] % (Auto) Lymph # [place] # Baso # Seg Neutrophils % Seg Neuts % (Manual) Lymphocytes % (Manual) Monocytes % (Manual) Seg Neutrophils # Seg Neutrophils # Man Lymphocytes # (Manual) Monocytes # (Manual) Basophils # (Manual) Percent Retic PT INR APTT Heparin Anti-Xa Level POC ABG pH POC ABG pCO2 POC ABG pO2 Sodium Potassium Chloride Carbon Dioxide BUN Creatinine Glucose POC Glucose 181 H 251 H 237 H Calcium Phosphorus Iron TIBC Lactate Dehydrogenase Total Creatine Kinase NT-Pro-B Natriuret Pep Total Protein Albumin Mmwdz-3-Lbnizvugb Xbqgg-1-Iuimcyzjo Beta Globulins PEP Interpretation Cholesterol LDL Cholesterol Direct Vitamin B12 Urine WBC (Auto) Urine Creatinine Crossmatch 04/14/16 04/14/16 04/14/16 05:00 05:42 05:42 WBC RBC Hgb Hct MCV MCH MCHC RDW Plt Count Lymph % (Auto) [place] % (Auto) Lymph # [place] # Baso # Seg Neutrophils % Seg Neuts % (Manual) Lymphocytes % (Manual) Monocytes % (Manual) Seg Neutrophils # Seg Neutrophils # Man Lymphocytes # (Manual) Monocytes # (Manual) Basophils # (Manual) Percent Retic PT 30.3 H INR 2.88 H APTT Heparin Anti-Xa Level 0.27 L POC ABG pH POC ABG pCO2 POC ABG pO2 Sodium Potassium 3.5 L Chloride Carbon Dioxide BUN Creatinine Glucose 160 H POC Glucose Calcium 8.2 L Phosphorus Iron TIBC Lactate Dehydrogenase Total Creatine Kinase NT-Pro-B Natriuret Pep Total Protein Albumin Mfeel-8-Planamjsq Adlux-3-Agylcowkl Beta Globulins PEP Interpretation Cholesterol LDL Cholesterol Direct Vitamin B12 Urine WBC (Auto) Urine Creatinine Crossmatch 04/14/16 04/14/16 04/14/16 06:02 06:16 09:18 WBC 12.3 H RBC Hgb 11.4 L Hct MCV 82 L MCH 26 L MCHC RDW Plt Count Lymph % (Auto) [place] % (Auto) Lymph # [place] # Baso # Seg Neutrophils % Seg Neuts % (Manual) Lymphocytes % (Manual) Monocytes % (Manual) Seg Neutrophils # Seg Neutrophils # Man Lymphocytes # (Manual) Monocytes # (Manual) Basophils # (Manual) Percent Retic PT INR APTT Heparin Anti-Xa Level POC ABG pH POC ABG pCO2 POC ABG pO2 Sodium Potassium Chloride Carbon Dioxide BUN Creatinine Glucose POC Glucose 156 H 164 H Calcium Phosphorus Iron TIBC Lactate Dehydrogenase Total Creatine Kinase NT-Pro-B Natriuret Pep Total Protein Albumin Urldg-6-Mnnjwxsyl Xfdrc-3-Pzcricevi Beta Globulins PEP Interpretation Cholesterol LDL Cholesterol Direct Vitamin B12 Urine WBC (Auto) Urine Creatinine Crossmatch 04/14/16 04/15/16 04/15/16 13:58 01:07 06:04 WBC RBC Hgb Hct MCV MCH MCHC RDW Plt Count Lymph % (Auto) [place] % (Auto) Lymph # [place] # Baso # Seg Neutrophils % Seg Neuts % (Manual) Lymphocytes % (Manual) Monocytes % (Manual) Seg Neutrophils # Seg Neutrophils # Man Lymphocytes # (Manual) Monocytes # (Manual) Basophils # (Manual) Percent Retic PT 24.9 H INR 2.25 H APTT Heparin Anti-Xa Level POC ABG pH POC ABG pCO2 POC ABG pO2 Sodium Potassium Chloride Carbon Dioxide BUN Creatinine Glucose POC Glucose 109 H 154 H Calcium Phosphorus Iron TIBC Lactate Dehydrogenase Total Creatine Kinase NT-Pro-B Natriuret Pep Total Protein Albumin Drcqd-4-Alscawkct Frfun-2-Bpkbrthkd Beta Globulins PEP Interpretation Cholesterol LDL Cholesterol Direct Vitamin B12 Urine WBC (Auto) Urine Creatinine Crossmatch 04/15/16 04/15/16 04/16/16 06:08 12:41 00:38 WBC RBC Hgb Hct MCV MCH MCHC RDW Plt Count Lymph % (Auto) [place] % (Auto) Lymph # [place] # Baso # Seg Neutrophils % Seg Neuts % (Manual) Lymphocytes % (Manual) Monocytes % (Manual) Seg Neutrophils # Seg Neutrophils # Man Lymphocytes # (Manual) Monocytes # (Manual) Basophils # (Manual) Percent Retic PT INR APTT Heparin Anti-Xa Level POC ABG pH POC ABG pCO2 POC ABG pO2 Sodium Potassium Chloride Carbon Dioxide BUN Creatinine Glucose POC Glucose 165 H 223 H 216 H Calcium Phosphorus Iron TIBC Lactate Dehydrogenase Total Creatine Kinase NT-Pro-B Natriuret Pep Total Protein Albumin Mctwh-0-Taouaohef Zacec-6-Uqmkmivun Beta Globulins PEP Interpretation Cholesterol LDL Cholesterol Direct Vitamin B12 Urine WBC (Auto) Urine Creatinine Crossmatch 04/16/16 04/16/16 04/16/16 05:45 07:09 14:00 WBC RBC Hgb Hct MCV MCH MCHC RDW Plt Count Lymph % (Auto) [place] % (Auto) Lymph # [place] # Baso # Seg Neutrophils % Seg Neuts % (Manual) Lymphocytes % (Manual) Monocytes % (Manual) Seg Neutrophils # Seg Neutrophils # Man Lymphocytes # (Manual) Monocytes # (Manual) Basophils # (Manual) Percent Retic PT 19.4 H INR 1.64 H APTT Heparin Anti-Xa Level 0.10 L POC ABG pH POC ABG pCO2 POC ABG pO2 Sodium Potassium Chloride Carbon Dioxide BUN Creatinine Glucose POC Glucose 207 H 69 L Calcium Phosphorus Iron TIBC Lactate Dehydrogenase Total Creatine Kinase NT-Pro-B Natriuret Pep Total Protein Albumin Pyxcc-5-Lftptdjfh Hethp-0-Wmbislddt Beta Globulins PEP Interpretation Cholesterol LDL Cholesterol Direct Vitamin B12 Urine WBC (Auto) Urine Creatinine Crossmatch 04/16/16 04/16/16 04/16/16 17:40 17:52 19:38 WBC RBC Hgb Hct MCV MCH MCHC RDW Plt Count Lymph % (Auto) [place] % (Auto) Lymph # [place] # Baso # Seg Neutrophils % Seg Neuts % (Manual) Lymphocytes % (Manual) Monocytes % (Manual) Seg Neutrophils # Seg Neutrophils # Man Lymphocytes # (Manual) Monocytes # (Manual) Basophils # (Manual) Percent Retic PT INR APTT Heparin Anti-Xa Level 0.26 L POC ABG pH 7.543 H 7.488 H POC ABG pCO2 26.3 L 30.3 L POC ABG pO2 55 L 203 H Sodium Potassium Chloride Carbon Dioxide BUN Creatinine Glucose POC Glucose Calcium Phosphorus Iron TIBC Lactate Dehydrogenase Total Creatine Kinase NT-Pro-B Natriuret Pep Total Protein Albumin Vyjip-2-Bqxpxoder Ardke-3-Dicgvfrlr Beta Globulins PEP Interpretation Cholesterol LDL Cholesterol Direct Vitamin B12 Urine WBC (Auto) Urine Creatinine Crossmatch 04/17/16 04/17/16 04/17/16 00:04 05:10 05:36 WBC RBC Hgb Hct MCV MCH MCHC RDW Plt Count Lymph % (Auto) [place] % (Auto) Lymph # [place] # Baso # Seg Neutrophils % Seg Neuts % (Manual) Lymphocytes % (Manual) Monocytes % (Manual) Seg Neutrophils # Seg Neutrophils # Man Lymphocytes # (Manual) Monocytes # (Manual) Basophils # (Manual) Percent Retic PT INR APTT Heparin Anti-Xa Level POC ABG pH POC ABG pCO2 32.7 L POC ABG pO2 68 L Sodium Potassium Chloride Carbon Dioxide BUN Creatinine Glucose POC Glucose 113 H 161 H Calcium Phosphorus Iron TIBC Lactate Dehydrogenase Total Creatine Kinase NT-Pro-B Natriuret Pep Total Protein Albumin Gobtj-4-Wxkpiwkzv Kqtxa-5-Bmtsfhtje Beta Globulins PEP Interpretation Cholesterol LDL Cholesterol Direct Vitamin B12 Urine WBC (Auto) Urine Creatinine Crossmatch 04/17/16 04/17/16 04/17/16 05:41 08:37 11:46 WBC RBC Hgb Hct MCV MCH MCHC RDW Plt Count Lymph % (Auto) [place] % (Auto) Lymph # [place] # Baso # Seg Neutrophils % Seg Neuts % (Manual) Lymphocytes % (Manual) Monocytes % (Manual) Seg Neutrophils # Seg Neutrophils # Man Lymphocytes # (Manual) Monocytes # (Manual) Basophils # (Manual) Percent Retic PT 17.4 H INR 1.43 H APTT Heparin Anti-Xa Level POC ABG pH POC ABG pCO2 POC ABG pO2 Sodium Potassium Chloride Carbon Dioxide BUN Creatinine Glucose POC Glucose 154 H 138 H Calcium Phosphorus Iron TIBC Lactate Dehydrogenase Total Creatine Kinase NT-Pro-B Natriuret Pep Total Protein Albumin Wxsbs-2-Ikkthfgfd Gznry-7-Hrbtzeomo Beta Globulins PEP Interpretation Cholesterol LDL Cholesterol Direct Vitamin B12 Urine WBC (Auto) Urine Creatinine Crossmatch 04/17/16 04/17/16 04/17/16 12:17 12:17 21:20 WBC 16.5 H RBC 3.31 L Hgb 8.8 L Hct 26.9 L MCV 81 L MCH 27 L MCHC RDW 15.5 H Plt Count Lymph % (Auto) [place] % (Auto) Lymph # [place] # Baso # Seg Neutrophils % Seg Neuts % (Manual) Lymphocytes % (Manual) 3.0 L Monocytes % (Manual) Seg Neutrophils # Seg Neutrophils # Man 10.1 H Lymphocytes # (Manual) 0.5 L Monocytes # (Manual) Basophils # (Manual) Percent Retic PT INR APTT Heparin Anti-Xa Level 0.14 L POC ABG pH POC ABG pCO2 POC ABG pO2 Sodium Potassium Chloride Carbon Dioxide 21 L BUN 38 H Creatinine 1.8 H D Glucose 131 H POC Glucose Calcium 7.6 L Phosphorus Iron TIBC Lactate Dehydrogenase Total Creatine Kinase NT-Pro-B Natriuret Pep Total Protein Albumin Oecql-3-Xghithpld Hdflu-5-Ffznencnm Beta Globulins PEP Interpretation Cholesterol LDL Cholesterol Direct Vitamin B12 Urine WBC (Auto) Urine Creatinine Crossmatch 04/17/16 04/17/16 04/18/16 23:38 23:41 00:21 WBC RBC Hgb Hct MCV MCH MCHC RDW Plt Count Lymph % (Auto) [place] % (Auto) Lymph # [place] # Baso # Seg Neutrophils % Seg Neuts % (Manual) Lymphocytes % (Manual) Monocytes % (Manual) Seg Neutrophils # Seg Neutrophils # Man Lymphocytes # (Manual) Monocytes # (Manual) Basophils # (Manual) Percent Retic PT INR APTT Heparin Anti-Xa Level POC ABG pH POC ABG pCO2 POC ABG pO2 Sodium Potassium Chloride Carbon Dioxide BUN Creatinine Glucose POC Glucose < 40 L < 40 L 223 H Calcium Phosphorus Iron TIBC Lactate Dehydrogenase Total Creatine Kinase NT-Pro-B Natriuret Pep Total Protein Albumin Fwlhv-1-Manlylzci Lkihw-7-Ayoafgwce Beta Globulins PEP Interpretation Cholesterol LDL Cholesterol Direct Vitamin B12 Urine WBC (Auto) Urine Creatinine Crossmatch 04/18/16 04/18/16 04/18/16 05:01 05:20 05:20 WBC 17.6 H RBC 3.44 L Hgb 9.1 L Hct 27.8 L MCV 81 L MCH 26 L MCHC RDW 15.5 H Plt Count Lymph % (Auto) 2.7 L [place] % (Auto) 8.3 H Lymph # 0.5 L [place] # 1.5 H Baso # Seg Neutrophils % 88.4 H Seg Neuts % (Manual) Lymphocytes % (Manual) Monocytes % (Manual) Seg Neutrophils # 15.6 H Seg Neutrophils # Man Lymphocytes # (Manual) Monocytes # (Manual) Basophils # (Manual) Percent Retic PT 17.4 H INR 1.43 H APTT Heparin Anti-Xa Level POC ABG pH 7.528 H POC ABG pCO2 27.9 L POC ABG pO2 Sodium Potassium Chloride Carbon Dioxide BUN Creatinine Glucose POC Glucose Calcium Phosphorus Iron TIBC Lactate Dehydrogenase Total Creatine Kinase NT-Pro-B Natriuret Pep Total Protein Albumin Lherj-2-Nfwogsltd Ehvoy-3-Hutfxzpyb Beta Globulins PEP Interpretation Cholesterol LDL Cholesterol Direct Vitamin B12 Urine WBC (Auto) Urine Creatinine Crossmatch 04/18/16 04/18/16 04/18/16 05:20 05:31 06:50 WBC RBC Hgb Hct MCV MCH MCHC RDW Plt Count Lymph % (Auto) [place] % (Auto) Lymph # [place] # Baso # Seg Neutrophils % Seg Neuts % (Manual) Lymphocytes % (Manual) Monocytes % (Manual) Seg Neutrophils # Seg Neutrophils # Man Lymphocytes # (Manual) Monocytes # (Manual) Basophils # (Manual) Percent Retic PT INR APTT Heparin Anti-Xa Level POC ABG pH POC ABG pCO2 POC ABG pO2 Sodium Potassium 3.4 L Chloride Carbon Dioxide 21 L BUN 22 H Creatinine Glucose POC Glucose 61 L 124 H Calcium 8.0 L Phosphorus Iron TIBC Lactate Dehydrogenase Total Creatine Kinase NT-Pro-B Natriuret Pep Total Protein Albumin Ogwrg-6-Ckblrxekw Towpa-5-Jbukekarv Beta Globulins PEP Interpretation Cholesterol LDL Cholesterol Direct Vitamin B12 Urine WBC (Auto) Urine Creatinine Crossmatch 04/18/16 04/18/16 04/19/16 17:42 22:40 00:31 WBC RBC Hgb Hct MCV MCH MCHC RDW Plt Count Lymph % (Auto) [place] % (Auto) Lymph # [place] # Baso # Seg Neutrophils % Seg Neuts % (Manual) Lymphocytes % (Manual) Monocytes % (Manual) Seg Neutrophils # Seg Neutrophils # Man Lymphocytes # (Manual) Monocytes # (Manual) Basophils # (Manual) Percent Retic PT INR APTT Heparin Anti-Xa Level < 0.10 L POC ABG pH POC ABG pCO2 POC ABG pO2 Sodium Potassium Chloride Carbon Dioxide BUN Creatinine Glucose POC Glucose 159 H 134 H Calcium Phosphorus Iron TIBC Lactate Dehydrogenase Total Creatine Kinase NT-Pro-B Natriuret Pep Total Protein Albumin Ujqgy-3-Ydvkztjkf Rtwgz-8-Ytsyqrgfr Beta Globulins PEP Interpretation Cholesterol LDL Cholesterol Direct Vitamin B12 Urine WBC (Auto) Urine Creatinine Crossmatch 04/19/16 04/19/16 04/19/16 04:18 04:18 04:25 WBC 19.0 H RBC 3.58 L Hgb 9.3 L Hct 28.8 L MCV 80 L MCH 26 L MCHC RDW 15.5 H Plt Count Lymph % (Auto) 2.8 L [place] % (Auto) 7.4 H Lymph # 0.5 L [place] # 1.4 H Baso # Seg Neutrophils % 89.4 H Seg Neuts % (Manual) Lymphocytes % (Manual) Monocytes % (Manual) Seg Neutrophils # 17.0 H Seg Neutrophils # Man Lymphocytes # (Manual) Monocytes # (Manual) Basophils # (Manual) Percent Retic PT INR APTT Heparin Anti-Xa Level POC ABG pH 7.527 H POC ABG pCO2 27.1 L POC ABG pO2 Sodium Potassium Chloride Carbon Dioxide BUN 22 H Creatinine Glucose 215 H POC Glucose Calcium 8.0 L Phosphorus Iron TIBC Lactate Dehydrogenase Total Creatine Kinase NT-Pro-B Natriuret Pep Total Protein Albumin Uhueq-8-Ibdorxrup Msgmg-4-Acnbehbgb Beta Globulins PEP Interpretation Cholesterol LDL Cholesterol Direct Vitamin B12 Urine WBC (Auto) Urine Creatinine Crossmatch 04/19/16 04/19/16 04/19/16 05:45 08:10 14:08 WBC RBC Hgb Hct MCV MCH MCHC RDW Plt Count Lymph % (Auto) [place] % (Auto) Lymph # [place] # Baso # Seg Neutrophils % Seg Neuts % (Manual) Lymphocytes % (Manual) Monocytes % (Manual) Seg Neutrophils # Seg Neutrophils # Man Lymphocytes # (Manual) Monocytes # (Manual) Basophils # (Manual) Percent Retic PT 22.1 H INR 1.93 H APTT Heparin Anti-Xa Level 0.17 L POC ABG pH POC ABG pCO2 POC ABG pO2 Sodium Potassium Chloride Carbon Dioxide BUN Creatinine Glucose POC Glucose 196 H 318 H Calcium Phosphorus Iron TIBC Lactate Dehydrogenase Total Creatine Kinase NT-Pro-B Natriuret Pep Total Protein Albumin Fooft-2-Yeoofjagk Iojej-6-Xwffkmnon Beta Globulins PEP Interpretation Cholesterol LDL Cholesterol Direct Vitamin B12 Urine WBC (Auto) Urine Creatinine Crossmatch 04/19/16 04/20/16 04/20/16 17:27 03:55 03:55 WBC 18.5 H RBC 3.19 L Hgb 8.4 L Hct 25.7 L MCV 80 L MCH 26 L MCHC RDW 15.9 H Plt Count Lymph % (Auto) 4.3 L [place] % (Auto) 10.1 H Lymph # 0.8 L [place] # 1.9 H Baso # Seg Neutrophils % 85.2 H Seg Neuts % (Manual) Lymphocytes % (Manual) Monocytes % (Manual) Seg Neutrophils # 15.8 H Seg Neutrophils # Man Lymphocytes # (Manual) Monocytes # (Manual) Basophils # (Manual) Percent Retic PT 22.0 H INR 1.92 H APTT Heparin Anti-Xa Level 0.14 L POC ABG pH POC ABG pCO2 POC ABG pO2 Sodium Potassium Chloride Carbon Dioxide BUN Creatinine Glucose POC Glucose 230 H Calcium Phosphorus Iron TIBC Lactate Dehydrogenase Total Creatine Kinase NT-Pro-B Natriuret Pep Total Protein Albumin Cbkvs-8-Jebjrvtzs Kukyc-5-Sltlhelqy Beta Globulins PEP Interpretation Cholesterol LDL Cholesterol Direct Vitamin B12 Urine WBC (Auto) Urine Creatinine Crossmatch 04/20/16 04/20/16 04/20/16 03:55 04:16 05:52 WBC RBC Hgb Hct MCV MCH MCHC RDW Plt Count Lymph % (Auto) [place] % (Auto) Lymph # [place] # Baso # Seg Neutrophils % Seg Neuts % (Manual) Lymphocytes % (Manual) Monocytes % (Manual) Seg Neutrophils # Seg Neutrophils # Man Lymphocytes # (Manual) Monocytes # (Manual) Basophils # (Manual) Percent Retic PT INR APTT Heparin Anti-Xa Level POC ABG pH 7.474 H POC ABG pCO2 26.5 L POC ABG pO2 Sodium Potassium Chloride Carbon Dioxide 18 L BUN 38 H Creatinine 2.7 H D Glucose 159 H POC Glucose 214 H Calcium 8.0 L Phosphorus Iron TIBC Lactate Dehydrogenase Total Creatine Kinase NT-Pro-B Natriuret Pep Total Protein Albumin Izpja-6-Tvijrerej Ybpwc-2-Srrjnodvw Beta Globulins PEP Interpretation Cholesterol LDL Cholesterol Direct Vitamin B12 Urine WBC (Auto) Urine Creatinine Crossmatch 1204/20/16 04/20/16 10:32 11:27 11:50 WBC RBC Hgb Hct MCV MCH MCHC RDW Plt Count Lymph % (Auto) [place] % (Auto) Lymph # [place] # Baso # Seg Neutrophils % Seg Neuts % (Manual) Lymphocytes % (Manual) Monocytes % (Manual) Seg Neutrophils # Seg Neutrophils # Man Lymphocytes # (Manual) Monocytes # (Manual) Basophils # (Manual) Percent Retic PT INR APTT Heparin Anti-Xa Level POC ABG pH POC ABG pCO2 POC ABG pO2 Sodium Potassium Chloride Carbon Dioxide 20 L BUN 45 H Creatinine 3.0 H Glucose 215 H POC Glucose 248 H Calcium 8.0 L Phosphorus Iron TIBC Lactate Dehydrogenase Total Creatine Kinase NT-Pro-B Natriuret Pep Total Protein Albumin Hednl-0-Edklwzlfy Ivfyj-3-Tpdhxmpzp Beta Globulins PEP Interpretation Cholesterol LDL Cholesterol Direct Vitamin B12 Urine WBC (Auto) Urine Creatinine 85.5 H Crossmatch 04/20/16 04/21/16 04/21/16 16:59 00:13 04:29 WBC RBC Hgb Hct MCV MCH MCHC RDW Plt Count Lymph % (Auto) [place] % (Auto) Lymph # [place] # Baso # Seg Neutrophils % Seg Neuts % (Manual) Lymphocytes % (Manual) Monocytes % (Manual) Seg Neutrophils # Seg Neutrophils # Man Lymphocytes # (Manual) Monocytes # (Manual) Basophils # (Manual) Percent Retic PT 18.1 H INR 1.50 H APTT Heparin Anti-Xa Level 0.10 L POC ABG pH POC ABG pCO2 POC ABG pO2 Sodium Potassium Chloride Carbon Dioxide BUN Creatinine Glucose POC Glucose 312 H 287 H Calcium Phosphorus Iron TIBC Lactate Dehydrogenase Total Creatine Kinase NT-Pro-B Natriuret Pep Total Protein Albumin Ptxzn-1-Afueyaqrt Cylwi-6-Nbbztudbx Beta Globulins PEP Interpretation Cholesterol LDL Cholesterol Direct Vitamin B12 Urine WBC (Auto) Urine Creatinine Crossmatch 04/21/16 04/21/16 04/21/16 04:29 04:29 04:55 WBC 15.4 H RBC 3.24 L Hgb 8.4 L Hct 25.6 L MCV 79 L MCH 26 L MCHC RDW 16.1 H Plt Count Lymph % (Auto) 6.8 L [place] % (Auto) 12.9 H Lymph # 1.0 L [place] # 2.0 H Baso # Seg Neutrophils % 79.8 H Seg Neuts % (Manual) Lymphocytes % (Manual) Monocytes % (Manual) Seg Neutrophils # 12.3 H Seg Neutrophils # Man Lymphocytes # (Manual) Monocytes # (Manual) Basophils # (Manual) Percent Retic PT INR APTT Heparin Anti-Xa Level POC ABG pH 7.512 H POC ABG pCO2 25.4 L POC ABG pO2 Sodium 135 L Potassium Chloride Carbon Dioxide 18 L BUN 57 H Creatinine 3.9 H Glucose 202 H POC Glucose Calcium 8.0 L Phosphorus Iron TIBC Lactate Dehydrogenase Total Creatine Kinase NT-Pro-B Natriuret Pep Total Protein Albumin Dlmok-7-Epwfrvhym Zrepl-6-Fwbpuaomh Beta Globulins PEP Interpretation Cholesterol LDL Cholesterol Direct Vitamin B12 Urine WBC (Auto) Urine Creatinine Crossmatch 04/21/16 04/21/16 04/21/16 05:20 12:08 12:16 WBC RBC Hgb Hct MCV MCH MCHC RDW Plt Count Lymph % (Auto) [place] % (Auto) Lymph # [place] # Baso # Seg Neutrophils % Seg Neuts % (Manual) Lymphocytes % (Manual) Monocytes % (Manual) Seg Neutrophils # Seg Neutrophils # Man Lymphocytes # (Manual) Monocytes # (Manual) Basophils # (Manual) Percent Retic PT INR APTT Heparin Anti-Xa Level 0.16 L POC ABG pH POC ABG pCO2 POC ABG pO2 Sodium Potassium Chloride Carbon Dioxide BUN Creatinine Glucose POC Glucose 203 H 221 H Calcium Phosphorus Iron TIBC Lactate Dehydrogenase Total Creatine Kinase NT-Pro-B Natriuret Pep Total Protein Albumin Lqgwv-2-Ywxtizuis Xewum-6-Qcyxudphu Beta Globulins PEP Interpretation Cholesterol LDL Cholesterol Direct Vitamin B12 Urine WBC (Auto) Urine Creatinine Crossmatch 04/21/16 04/22/16 04/22/16 17:22 05:01 05:20 WBC RBC Hgb Hct MCV MCH MCHC RDW Plt Count Lymph % (Auto) [place] % (Auto) Lymph # [place] # Baso # Seg Neutrophils % Seg Neuts % (Manual) Lymphocytes % (Manual) Monocytes % (Manual) Seg Neutrophils # Seg Neutrophils # Man Lymphocytes # (Manual) Monocytes # (Manual) Basophils # (Manual) Percent Retic PT 17.5 H INR 1.44 H APTT Heparin Anti-Xa Level POC ABG pH 7.460 H POC ABG pCO2 27.9 L POC ABG pO2 Sodium Potassium Chloride Carbon Dioxide BUN Creatinine Glucose POC Glucose 189 H Calcium Phosphorus Iron TIBC Lactate Dehydrogenase Total Creatine Kinase NT-Pro-B Natriuret Pep Total Protein Albumin Qbdqk-1-Bybhgfwdv Qxfht-2-Ddhrbenmu Beta Globulins PEP Interpretation Cholesterol LDL Cholesterol Direct Vitamin B12 Urine WBC (Auto) Urine Creatinine Crossmatch 04/22/16 04/22/16 04/22/16 05:43 06:40 08:08 WBC RBC Hgb Hct MCV MCH MCHC RDW Plt Count Lymph % (Auto) [place] % (Auto) Lymph # [place] # Baso # Seg Neutrophils % Seg Neuts % (Manual) Lymphocytes % (Manual) Monocytes % (Manual) Seg Neutrophils # Seg Neutrophils # Man Lymphocytes # (Manual) Monocytes # (Manual) Basophils # (Manual) Percent Retic PT INR APTT Heparin Anti-Xa Level POC ABG pH POC ABG pCO2 POC ABG pO2 Sodium Potassium Chloride Carbon Dioxide BUN Creatinine Glucose POC Glucose 56 L 136 H 134 H Calcium Phosphorus Iron TIBC Lactate Dehydrogenase Total Creatine Kinase NT-Pro-B Natriuret Pep Total Protein Albumin Szpck-7-Xkdqsuuqd Uqmbr-9-Acimiswla Beta Globulins PEP Interpretation Cholesterol LDL Cholesterol Direct Vitamin B12 Urine WBC (Auto) Urine Creatinine Crossmatch 04/22/16 04/22/16 04/22/16 11:18 12:10 18:17 WBC RBC Hgb Hct MCV MCH MCHC RDW Plt Count Lymph % (Auto) [place] % (Auto) Lymph # [place] # Baso # Seg Neutrophils % Seg Neuts % (Manual) Lymphocytes % (Manual) Monocytes % (Manual) Seg Neutrophils # Seg Neutrophils # Man Lymphocytes # (Manual) Monocytes # (Manual) Basophils # (Manual) Percent Retic PT INR APTT Heparin Anti-Xa Level 0.12 L POC ABG pH POC ABG pCO2 POC ABG pO2 Sodium Potassium Chloride Carbon Dioxide BUN Creatinine Glucose POC Glucose 142 H 227 H Calcium Phosphorus Iron TIBC Lactate Dehydrogenase Total Creatine Kinase NT-Pro-B Natriuret Pep Total Protein Albumin Pvzpx-4-Jnhzqfkad Kohzo-5-Ydzvipmep Beta Globulins PEP Interpretation Cholesterol LDL Cholesterol Direct Vitamin B12 Urine WBC (Auto) Urine Creatinine Crossmatch 04/22/16 04/22/16 04/23/16 22:28 23:47 04:49 WBC RBC Hgb Hct MCV MCH MCHC RDW Plt Count Lymph % (Auto) [place] % (Auto) Lymph # [place] # Baso # Seg Neutrophils % Seg Neuts % (Manual) Lymphocytes % (Manual) Monocytes % (Manual) Seg Neutrophils # Seg Neutrophils # Man Lymphocytes # (Manual) Monocytes # (Manual) Basophils # (Manual) Percent Retic PT INR APTT Heparin Anti-Xa Level 0.16 L POC ABG pH POC ABG pCO2 32.6 L POC ABG pO2 122 H Sodium Potassium Chloride Carbon Dioxide BUN Creatinine Glucose POC Glucose 266 H Calcium Phosphorus Iron TIBC Lactate Dehydrogenase Total Creatine Kinase NT-Pro-B Natriuret Pep Total Protein Albumin Rsgbi-8-Qezhldvdl Kzcee-3-Mcdlbmrxr Beta Globulins PEP Interpretation Cholesterol LDL Cholesterol Direct Vitamin B12 Urine WBC (Auto) Urine Creatinine Crossmatch 04/23/16 04/23/16 04/23/16 05:41 08:05 08:34 WBC RBC Hgb Hct MCV MCH MCHC RDW Plt Count Lymph % (Auto) [place] % (Auto) Lymph # [place] # Baso # Seg Neutrophils % Seg Neuts % (Manual) Lymphocytes % (Manual) Monocytes % (Manual) Seg Neutrophils # Seg Neutrophils # Man Lymphocytes # (Manual) Monocytes # (Manual) Basophils # (Manual) Percent Retic PT INR APTT Heparin Anti-Xa Level POC ABG pH POC ABG pCO2 POC ABG pO2 Sodium Potassium Chloride 109.5 H Carbon Dioxide 21 L BUN 23 H Creatinine Glucose 227 H POC Glucose 227 H 224 H Calcium 8.2 L Phosphorus Iron TIBC Lactate Dehydrogenase Total Creatine Kinase NT-Pro-B Natriuret Pep Total Protein Albumin Sylev-0-Ujlyjvueg Laafk-3-Blmzhkmcs Beta Globulins PEP Interpretation Cholesterol LDL Cholesterol Direct Vitamin B12 Urine WBC (Auto) Urine Creatinine Crossmatch 04/23/16 04/23/16 04/23/16 10:45 11:37 22:49 WBC RBC Hgb Hct MCV MCH MCHC RDW Plt Count Lymph % (Auto) [place] % (Auto) Lymph # [place] # Baso # Seg Neutrophils % Seg Neuts % (Manual) Lymphocytes % (Manual) Monocytes % (Manual) Seg Neutrophils # Seg Neutrophils # Man Lymphocytes # (Manual) Monocytes # (Manual) Basophils # (Manual) Percent Retic PT 15.9 H INR 1.28 H APTT Heparin Anti-Xa Level 0.12 L POC ABG pH POC ABG pCO2 POC ABG pO2 Sodium Potassium Chloride Carbon Dioxide BUN Creatinine Glucose POC Glucose 256 H Calcium Phosphorus Iron TIBC Lactate Dehydrogenase Total Creatine Kinase NT-Pro-B Natriuret Pep Total Protein Albumin Antwx-0-Jtpywsoem Byfre-5-Yyeogglnk Beta Globulins PEP Interpretation Cholesterol LDL Cholesterol Direct Vitamin B12 Urine WBC (Auto) Urine Creatinine Crossmatch 04/23/16 04/24/16 04/24/16 23:59 05:29 06:03 WBC RBC Hgb Hct MCV MCH MCHC RDW Plt Count Lymph % (Auto) [place] % (Auto) Lymph # [place] # Baso # Seg Neutrophils % Seg Neuts % (Manual) Lymphocytes % (Manual) Monocytes % (Manual) Seg Neutrophils # Seg Neutrophils # Man Lymphocytes # (Manual) Monocytes # (Manual) Basophils # (Manual) Percent Retic PT INR APTT Heparin Anti-Xa Level POC ABG pH 7.464 H POC ABG pCO2 32.4 L POC ABG pO2 115 H Sodium Potassium Chloride Carbon Dioxide BUN Creatinine Glucose POC Glucose 176 H 256 H Calcium Phosphorus Iron TIBC Lactate Dehydrogenase Total Creatine Kinase NT-Pro-B Natriuret Pep Total Protein Albumin Hjyds-6-Gtfwphdmb Sxeku-9-Icufnmjsl Beta Globulins PEP Interpretation Cholesterol LDL Cholesterol Direct Vitamin B12 Urine WBC (Auto) Urine Creatinine Crossmatch 04/24/16 04/24/16 04/24/16 07:59 12:10 17:17 WBC RBC Hgb Hct MCV MCH MCHC RDW Plt Count Lymph % (Auto) [place] % (Auto) Lymph # [place] # Baso # Seg Neutrophils % Seg Neuts % (Manual) Lymphocytes % (Manual) Monocytes % (Manual) Seg Neutrophils # Seg Neutrophils # Man Lymphocytes # (Manual) Monocytes # (Manual) Basophils # (Manual) Percent Retic PT INR APTT Heparin Anti-Xa Level 0.18 L POC ABG pH POC ABG pCO2 POC ABG pO2 Sodium Potassium Chloride Carbon Dioxide BUN Creatinine Glucose POC Glucose 304 H 325 H Calcium Phosphorus Iron TIBC Lactate Dehydrogenase Total Creatine Kinase NT-Pro-B Natriuret Pep Total Protein Albumin Hznat-9-Nucquorzv Uhkin-6-Syflmgwfd Beta Globulins PEP Interpretation Cholesterol LDL Cholesterol Direct Vitamin B12 Urine WBC (Auto) Urine Creatinine Crossmatch 04/25/16 04/25/16 04/25/16 00:52 06:40 06:44 WBC RBC Hgb Hct MCV MCH MCHC RDW Plt Count Lymph % (Auto) [place] % (Auto) Lymph # [place] # Baso # Seg Neutrophils % Seg Neuts % (Manual) Lymphocytes % (Manual) Monocytes % (Manual) Seg Neutrophils # Seg Neutrophils # Man Lymphocytes # (Manual) Monocytes # (Manual) Basophils # (Manual) Percent Retic PT INR APTT Heparin Anti-Xa Level 0.11 L POC ABG pH POC ABG pCO2 POC ABG pO2 Sodium Potassium Chloride Carbon Dioxide BUN Creatinine Glucose POC Glucose 212 H 184 H Calcium Phosphorus Iron TIBC Lactate Dehydrogenase Total Creatine Kinase NT-Pro-B Natriuret Pep Total Protein Albumin Dygno-3-Wmtzorcsp Msbyq-5-Lokdzdmxx Beta Globulins PEP Interpretation Cholesterol LDL Cholesterol Direct Vitamin B12 Urine WBC (Auto) Urine Creatinine Crossmatch 04/25/16 04/25/16 04/25/16 11:40 13:26 17:27 WBC RBC Hgb Hct MCV MCH MCHC RDW Plt Count Lymph % (Auto) [place] % (Auto) Lymph # [place] # Baso # Seg Neutrophils % Seg Neuts % (Manual) Lymphocytes % (Manual) Monocytes % (Manual) Seg Neutrophils # Seg Neutrophils # Man Lymphocytes # (Manual) Monocytes # (Manual) Basophils # (Manual) Percent Retic PT INR APTT Heparin Anti-Xa Level 0.21 L POC ABG pH POC ABG pCO2 POC ABG pO2 Sodium Potassium Chloride Carbon Dioxide BUN Creatinine Glucose POC Glucose 206 H 204 H Calcium Phosphorus Iron TIBC Lactate Dehydrogenase Total Creatine Kinase NT-Pro-B Natriuret Pep Total Protein Albumin Xuagg-9-Qbcnjbmav Ezsak-8-Fjhoktjpp Beta Globulins PEP Interpretation Cholesterol LDL Cholesterol Direct Vitamin B12 Urine WBC (Auto) Urine Creatinine Crossmatch 04/25/16 04/26/16 04/26/16 23:46 06:31 11:51 WBC RBC Hgb Hct MCV MCH MCHC RDW Plt Count Lymph % (Auto) [place] % (Auto) Lymph # [place] # Baso # Seg Neutrophils % Seg Neuts % (Manual) Lymphocytes % (Manual) Monocytes % (Manual) Seg Neutrophils # Seg Neutrophils # Man Lymphocytes # (Manual) Monocytes # (Manual) Basophils # (Manual) Percent Retic PT INR APTT Heparin Anti-Xa Level POC ABG pH POC ABG pCO2 POC ABG pO2 Sodium Potassium Chloride Carbon Dioxide BUN Creatinine Glucose POC Glucose 162 H 148 H 178 H Calcium Phosphorus Iron TIBC Lactate Dehydrogenase Total Creatine Kinase NT-Pro-B Natriuret Pep Total Protein Albumin Lqood-6-Hwlencoya Mhtoe-7-Eluxvicot Beta Globulins PEP Interpretation Cholesterol LDL Cholesterol Direct Vitamin B12 Urine WBC (Auto) Urine Creatinine Crossmatch 04/26/16 04/26/1616 12:17 16:16 18:14 WBC RBC Hgb Hct MCV MCH MCHC RDW Plt Count Lymph % (Auto) [place] % (Auto) Lymph # [place] # Baso # Seg Neutrophils % Seg Neuts % (Manual) Lymphocytes % (Manual) Monocytes % (Manual) Seg Neutrophils # Seg Neutrophils # Man Lymphocytes # (Manual) Monocytes # (Manual) Basophils # (Manual) Percent Retic PT INR APTT Heparin Anti-Xa Level POC ABG pH 7.513 H POC ABG pCO2 POC ABG pO2 76 L Sodium Potassium Chloride Carbon Dioxide BUN Creatinine Glucose POC Glucose 186 H 172 H Calcium Phosphorus Iron TIBC Lactate Dehydrogenase Total Creatine Kinase NT-Pro-B Natriuret Pep Total Protein Albumin Yiwws-9-Lpibfozkq Xwkpp-0-Mnfnhpldq Beta Globulins PEP Interpretation Cholesterol LDL Cholesterol Direct Vitamin B12 Urine WBC (Auto) Urine Creatinine Crossmatch 04/26/16 04/26/16 04/27/16 19:27 23:28 04:21 WBC 13.1 H RBC 2.99 L Hgb 7.8 L Hct 24.0 L MCV 81 L MCH 26 L MCHC RDW 16.7 H Plt Count 486 H Lymph % (Auto) 12.5 L [place] % (Auto) 7.9 H Lymph # [place] # 1.0 H Baso # Seg Neutrophils % 77.5 H Seg Neuts % (Manual) Lymphocytes % (Manual) Monocytes % (Manual) Seg Neutrophils # 10.2 H Seg Neutrophils # Man Lymphocytes # (Manual) Monocytes # (Manual) Basophils # (Manual) Percent Retic PT INR APTT Heparin Anti-Xa Level 0.22 L POC ABG pH POC ABG pCO2 POC ABG pO2 Sodium Potassium Chloride Carbon Dioxide BUN Creatinine Glucose POC Glucose 141 H Calcium Phosphorus Iron TIBC Lactate Dehydrogenase Total Creatine Kinase NT-Pro-B Natriuret Pep Total Protein Albumin Htzfh-4-Gjjiofzhr Ktslp-9-Jhyuwbikq Beta Globulins PEP Interpretation Cholesterol LDL Cholesterol Direct Vitamin B12 Urine WBC (Auto) Urine Creatinine Crossmatch 04/27/16 04/27/16 04/27/16 04:21 05:46 11:04 WBC RBC Hgb Hct MCV MCH MCHC RDW Plt Count Lymph % (Auto) [place] % (Auto) Lymph # [place] # Baso # Seg Neutrophils % Seg Neuts % (Manual) Lymphocytes % (Manual) Monocytes % (Manual) Seg Neutrophils # Seg Neutrophils # Man Lymphocytes # (Manual) Monocytes # (Manual) Basophils # (Manual) Percent Retic PT INR APTT Heparin Anti-Xa Level POC ABG pH 7.489 H POC ABG pCO2 POC ABG pO2 71 L Sodium Potassium Chloride Carbon Dioxide BUN Creatinine 0.6 L Glucose 187 H POC Glucose 192 H Calcium 8.0 L Phosphorus Iron TIBC Lactate Dehydrogenase Total Creatine Kinase NT-Pro-B Natriuret Pep Total Protein 6.0 L Albumin 2.0 L Fnjgt-5-Wfvfnscmn Sbadb-8-Xxfctkpck Beta Globulins PEP Interpretation Cholesterol LDL Cholesterol Direct Vitamin B12 Urine WBC (Auto) Urine Creatinine Crossmatch 04/27/16 04/27/16 04/27/16 14:12 21:58 23:38 WBC RBC Hgb Hct MCV MCH MCHC RDW Plt Count Lymph % (Auto) [place] % (Auto) Lymph # [place] # Baso # Seg Neutrophils % Seg Neuts % (Manual) Lymphocytes % (Manual) Monocytes % (Manual) Seg Neutrophils # Seg Neutrophils # Man Lymphocytes # (Manual) Monocytes # (Manual) Basophils # (Manual) Percent Retic PT INR APTT Heparin Anti-Xa Level 0.24 L POC ABG pH POC ABG pCO2 POC ABG pO2 Sodium Potassium Chloride Carbon Dioxide BUN Creatinine Glucose POC Glucose 216 H 181 H Calcium Phosphorus Iron TIBC Lactate Dehydrogenase Total Creatine Kinase NT-Pro-B Natriuret Pep Total Protein Albumin Luuir-4-Xbuvbheth Valzo-5-Oqjysdklx Beta Globulins PEP Interpretation Cholesterol LDL Cholesterol Direct Vitamin B12 Urine WBC (Auto) Urine Creatinine Crossmatch 04/28/16 04/28/16 04/28/16 04:28 05:52 11:31 WBC RBC Hgb Hct MCV MCH MCHC RDW Plt Count Lymph % (Auto) [place] % (Auto) Lymph # [place] # Baso # Seg Neutrophils % Seg Neuts % (Manual) Lymphocytes % (Manual) Monocytes % (Manual) Seg Neutrophils # Seg Neutrophils # Man Lymphocytes # (Manual) Monocytes # (Manual) Basophils # (Manual) Percent Retic PT INR APTT Heparin Anti-Xa Level POC ABG pH 7.524 H POC ABG pCO2 POC ABG pO2 Sodium Potassium Chloride Carbon Dioxide BUN Creatinine Glucose POC Glucose 254 H 280 H Calcium Phosphorus Iron TIBC Lactate Dehydrogenase Total Creatine Kinase NT-Pro-B Natriuret Pep Total Protein Albumin Fpvad-9-Ayjwxudaz Zhqva-5-Pnlnleill Beta Globulins PEP Interpretation Cholesterol LDL Cholesterol Direct Vitamin B12 Urine WBC (Auto) Urine Creatinine Crossmatch 04/28/16 04/28/16 04/29/16 17:30 19:52 00:47 WBC RBC Hgb Hct MCV MCH MCHC RDW Plt Count Lymph % (Auto) [place] % (Auto) Lymph # [place] # Baso # Seg Neutrophils % Seg Neuts % (Manual) Lymphocytes % (Manual) Monocytes % (Manual) Seg Neutrophils # Seg Neutrophils # Man Lymphocytes # (Manual) Monocytes # (Manual) Basophils # (Manual) Percent Retic PT INR APTT Heparin Anti-Xa Level 0.15 L POC ABG pH POC ABG pCO2 POC ABG pO2 Sodium Potassium Chloride Carbon Dioxide BUN Creatinine Glucose POC Glucose 208 H 265 H Calcium Phosphorus Iron TIBC Lactate Dehydrogenase Total Creatine Kinase NT-Pro-B Natriuret Pep Total Protein Albumin Wptri-7-Uoydjtjra Iygby-9-Jjxlkxoda Beta Globulins PEP Interpretation Cholesterol LDL Cholesterol Direct Vitamin B12 Urine WBC (Auto) Urine Creatinine Crossmatch 04/29/16 04/29/16 04/29/16 04:00 04:00 04:29 WBC 13.4 H RBC 2.56 L Hgb 6.9 L Hct 20.6 L MCV 81 L MCH 27 L MCHC RDW 16.2 H Plt Count 513 H Lymph % (Auto) 10.0 L [place] % (Auto) 12.0 H Lymph # [place] # 1.6 H Baso # Seg Neutrophils % 77.1 H Seg Neuts % (Manual) Lymphocytes % (Manual) Monocytes % (Manual) Seg Neutrophils # 10.4 H Seg Neutrophils # Man Lymphocytes # (Manual) Monocytes # (Manual) Basophils # (Manual) Percent Retic PT INR APTT Heparin Anti-Xa Level POC ABG pH 7.501 H POC ABG pCO2 POC ABG pO2 76 L Sodium Potassium Chloride Carbon Dioxide BUN 27 H Creatinine Glucose 204 H POC Glucose Calcium 8.1 L Phosphorus Iron TIBC Lactate Dehydrogenase Total Creatine Kinase NT-Pro-B Natriuret Pep Total Protein Albumin Cwvwl-5-Nfgkgvlim Rxwks-1-Rxquxsxjl Beta Globulins PEP Interpretation Cholesterol LDL Cholesterol Direct Vitamin B12 Urine WBC (Auto) Urine Creatinine Crossmatch 04/29/16 04/29/16 04/29/16 06:03 10:05 10:16 WBC RBC Hgb Hct MCV MCH MCHC RDW Plt Count Lymph % (Auto) [place] % (Auto) Lymph # [place] # Baso # Seg Neutrophils % Seg Neuts % (Manual) Lymphocytes % (Manual) Monocytes % (Manual) Seg Neutrophils # Seg Neutrophils # Man Lymphocytes # (Manual) Monocytes # (Manual) Basophils # (Manual) Percent Retic 3.68 H PT INR APTT Heparin Anti-Xa Level POC ABG pH POC ABG pCO2 POC ABG pO2 Sodium Potassium Chloride Carbon Dioxide BUN Creatinine Glucose POC Glucose 192 H Calcium Phosphorus Iron TIBC Lactate Dehydrogenase Total Creatine Kinase NT-Pro-B Natriuret Pep Total Protein Albumin Ufkrk-0-Vybqaeuhq Nrxyf-8-Dqrlkqikv Beta Globulins PEP Interpretation Cholesterol LDL Cholesterol Direct Vitamin B12 Urine WBC (Auto) Urine Creatinine Crossmatch See Detail 04/29/16 04/29/16 04/29/16 10:16 10:16 11:23 WBC RBC Hgb Hct MCV MCH MCHC RDW Plt Count Lymph % (Auto) [place] % (Auto) Lymph # [place] # Baso # Seg Neutrophils % Seg Neuts % (Manual) Lymphocytes % (Manual) Monocytes % (Manual) Seg Neutrophils # Seg Neutrophils # Man Lymphocytes # (Manual) Monocytes # (Manual) Basophils # (Manual) Percent Retic PT INR APTT Heparin Anti-Xa Level POC ABG pH POC ABG pCO2 POC ABG pO2 Sodium Potassium Chloride Carbon Dioxide BUN Creatinine Glucose POC Glucose 116 H Calcium Phosphorus Iron 10 L TIBC 138 L Lactate Dehydrogenase 204 H Total Creatine Kinase NT-Pro-B Natriuret Pep Total Protein Albumin Sejlj-7-Menvitiwh Qgglm-2-Xnmhprocg Beta Globulins PEP Interpretation Cholesterol LDL Cholesterol Direct Vitamin B12 1005 H Urine WBC (Auto) Urine Creatinine Crossmatch 04/29/16 04/29/16 04/30/16 17:34 23:19 03:19 WBC RBC Hgb 9.0 L Hct 26.7 L D MCV MCH MCHC RDW Plt Count Lymph % (Auto) [place] % (Auto) Lymph # [place] # Baso # Seg Neutrophils % Seg Neuts % (Manual) Lymphocytes % (Manual) Monocytes % (Manual) Seg Neutrophils # Seg Neutrophils # Man Lymphocytes # (Manual) Monocytes # (Manual) Basophils # (Manual) Percent Retic PT INR APTT Heparin Anti-Xa Level POC ABG pH POC ABG pCO2 POC ABG pO2 Sodium Potassium Chloride Carbon Dioxide BUN Creatinine Glucose POC Glucose 142 H 242 H Calcium Phosphorus Iron TIBC Lactate Dehydrogenase Total Creatine Kinase NT-Pro-B Natriuret Pep Total Protein Albumin Kpssn-6-Jfmeicnmb Zjkuo-7-Ddhttctbo Beta Globulins PEP Interpretation Cholesterol LDL Cholesterol Direct Vitamin B12 Urine WBC (Auto) Urine Creatinine Crossmatch 04/30/16 04/30/16 04/30/16 04:10 04:10 04:32 WBC 13.8 H RBC 3.54 L Hgb 9.3 L Hct 29.1 L MCV 82 L MCH 26 L MCHC RDW 16.5 H Plt Count 535 H Lymph % (Auto) 7.5 L [place] % (Auto) 13.8 H Lymph # 1.0 L [place] # 1.9 H Baso # Seg Neutrophils % 78.0 H Seg Neuts % (Manual) Lymphocytes % (Manual) Monocytes % (Manual) Seg Neutrophils # 10.7 H Seg Neutrophils # Man Lymphocytes # (Manual) Monocytes # (Manual) Basophils # (Manual) Percent Retic PT INR APTT Heparin Anti-Xa Level POC ABG pH 7.519 H POC ABG pCO2 33.6 L POC ABG pO2 79 L Sodium 146 H Potassium Chloride Carbon Dioxide BUN Creatinine 0.7 L Glucose 242 H POC Glucose Calcium 8.3 L Phosphorus Iron TIBC Lactate Dehydrogenase Total Creatine Kinase NT-Pro-B Natriuret Pep Total Protein Albumin Zfvcr-1-Xapmzuqwc Fexxc-0-Fvaqvbqhy Beta Globulins PEP Interpretation Cholesterol LDL Cholesterol Direct Vitamin B12 Urine WBC (Auto) Urine Creatinine Crossmatch 04/30/16 04/30/16 04/30/16 05:33 11:23 17:26 WBC RBC Hgb Hct MCV MCH MCHC RDW Plt Count Lymph % (Auto) [place] % (Auto) Lymph # [place] # Baso # Seg Neutrophils % Seg Neuts % (Manual) Lymphocytes % (Manual) Monocytes % (Manual) Seg Neutrophils # Seg Neutrophils # Man Lymphocytes # (Manual) Monocytes # (Manual) Basophils # (Manual) Percent Retic PT INR APTT Heparin Anti-Xa Level POC ABG pH POC ABG pCO2 POC ABG pO2 Sodium Potassium Chloride Carbon Dioxide BUN Creatinine Glucose POC Glucose 242 H 305 H 281 H Calcium Phosphorus Iron TIBC Lactate Dehydrogenase Total Creatine Kinase NT-Pro-B Natriuret Pep Total Protein Albumin Gkdfw-5-Hobrldcwk Pmais-4-Nfkplqqnh Beta Globulins PEP Interpretation Cholesterol LDL Cholesterol Direct Vitamin B12 Urine WBC (Auto) Urine Creatinine Crossmatch 04/30/16 05/01/16 05/01/16 23:53 04:00 04:00 WBC 15.9 H RBC 2.99 L Hgb 7.9 L Hct 24.4 L MCV 82 L MCH 26 L MCHC RDW 16.9 H Plt Count 481 H Lymph % (Auto) 9.3 L [place] % (Auto) 15.0 H Lymph # [place] # 2.4 H Baso # Seg Neutrophils % 74.9 H Seg Neuts % (Manual) Lymphocytes % (Manual) Monocytes % (Manual) Seg Neutrophils # 11.9 H Seg Neutrophils # Man Lymphocytes # (Manual) Monocytes # (Manual) Basophils # (Manual) Percent Retic PT INR APTT Heparin Anti-Xa Level POC ABG pH POC ABG pCO2 POC ABG pO2 Sodium 147 H Potassium Chloride 107.8 H Carbon Dioxide BUN 22 H Creatinine 0.7 L Glucose 229 H POC Glucose 207 H Calcium 8.2 L Phosphorus Iron TIBC Lactate Dehydrogenase Total Creatine Kinase NT-Pro-B Natriuret Pep Total Protein Albumin Qqofg-3-Rwhyjbwhx Lvucj-8-Tdcsstjsh Beta Globulins PEP Interpretation Cholesterol LDL Cholesterol Direct Vitamin B12 Urine WBC (Auto) Urine Creatinine Crossmatch 05/01/16 05/01/16 05/01/16 05:12 07:41 12:33 WBC RBC Hgb Hct MCV MCH MCHC RDW Plt Count Lymph % (Auto) [place] % (Auto) Lymph # [place] # Baso # Seg Neutrophils % Seg Neuts % (Manual) Lymphocytes % (Manual) Monocytes % (Manual) Seg Neutrophils # Seg Neutrophils # Man Lymphocytes # (Manual) Monocytes # (Manual) Basophils # (Manual) Percent Retic PT INR APTT Heparin Anti-Xa Level 0.16 L POC ABG pH POC ABG pCO2 POC ABG pO2 Sodium Potassium Chloride Carbon Dioxide BUN Creatinine Glucose POC Glucose 284 H 186 H Calcium Phosphorus Iron TIBC Lactate Dehydrogenase Total Creatine Kinase NT-Pro-B Natriuret Pep Total Protein Albumin Bcjru-4-Ufcpuqxro Xyrzp-3-Irxuyfavd Beta Globulins PEP Interpretation Cholesterol LDL Cholesterol Direct Vitamin B12 Urine WBC (Auto) Urine Creatinine Crossmatch 05/01/16 05/01/16 05/02/16 17:24 23:19 04:48 WBC 17.2 H RBC 3.09 L Hgb 8.1 L Hct 25.5 L MCV 83 L MCH 26 L MCHC RDW 17.3 H Plt Count 507 H Lymph % (Auto) 8.0 L [place] % (Auto) 13.6 H Lymph # [place] # 2.3 H Baso # Seg Neutrophils % 77.5 H Seg Neuts % (Manual) Lymphocytes % (Manual) Monocytes % (Manual) Seg Neutrophils # 13.4 H Seg Neutrophils # Man Lymphocytes # (Manual) Monocytes # (Manual) Basophils # (Manual) Percent Retic PT INR APTT Heparin Anti-Xa Level POC ABG pH POC ABG pCO2 POC ABG pO2 Sodium Potassium Chloride Carbon Dioxide BUN Creatinine Glucose POC Glucose 171 H 132 H Calcium Phosphorus Iron TIBC Lactate Dehydrogenase Total Creatine Kinase NT-Pro-B Natriuret Pep Total Protein Albumin Pxrxc-0-Oysrdynyh Fmqsr-7-Tkahpziim Beta Globulins PEP Interpretation Cholesterol LDL Cholesterol Direct Vitamin B12 Urine WBC (Auto) Urine Creatinine Crossmatch 05/02/16 05/02/16 05/02/16 04:48 04:48 05:42 WBC RBC Hgb Hct MCV MCH MCHC RDW Plt Count Lymph % (Auto) [place] % (Auto) Lymph # [place] # Baso # Seg Neutrophils % Seg Neuts % (Manual) Lymphocytes % (Manual) Monocytes % (Manual) Seg Neutrophils # Seg Neutrophils # Man Lymphocytes # (Manual) Monocytes # (Manual) Basophils # (Manual) Percent Retic PT INR APTT Heparin Anti-Xa Level 0.19 L POC ABG pH POC ABG pCO2 POC ABG pO2 Sodium 149 H Potassium Chloride 109.9 H Carbon Dioxide BUN 24 H Creatinine Glucose 224 H POC Glucose 253 H Calcium 8.2 L Phosphorus Iron TIBC Lactate Dehydrogenase Total Creatine Kinase NT-Pro-B Natriuret Pep Total Protein Albumin Mlffp-7-Akmvhuijv Tvweu-0-Pwjkhcljj Beta Globulins PEP Interpretation Cholesterol LDL Cholesterol Direct Vitamin B12 Urine WBC (Auto) Urine Creatinine Crossmatch 05/02/16 05/02/16 05/02/16 12:01 16:40 23:35 WBC RBC Hgb Hct MCV MCH MCHC RDW Plt Count Lymph % (Auto) [place] % (Auto) Lymph # [place] # Baso # Seg Neutrophils % Seg Neuts % (Manual) Lymphocytes % (Manual) Monocytes % (Manual) Seg Neutrophils # Seg Neutrophils # Man Lymphocytes # (Manual) Monocytes # (Manual) Basophils # (Manual) Percent Retic PT INR APTT Heparin Anti-Xa Level POC ABG pH POC ABG pCO2 POC ABG pO2 Sodium Potassium Chloride Carbon Dioxide BUN Creatinine Glucose POC Glucose 197 H 126 H 303 H Calcium Phosphorus Iron TIBC Lactate Dehydrogenase Total Creatine Kinase NT-Pro-B Natriuret Pep Total Protein Albumin Zzyge-2-Prgwwvcta Cwake-0-Pbmihkuzc Beta Globulins PEP Interpretation Cholesterol LDL Cholesterol Direct Vitamin B12 Urine WBC (Auto) Urine Creatinine Crossmatch 05/03/16 05/03/16 05/03/16 04:31 04:31 04:31 WBC 19.1 H RBC 3.15 L Hgb 8.6 L Hct 25.7 L MCV 82 L MCH MCHC RDW 17.4 H Plt Count 525 H Lymph % (Auto) [place] % (Auto) Lymph # [place] # Baso # Seg Neutrophils % Seg Neuts % (Manual) Lymphocytes % (Manual) 10.0 L Monocytes % (Manual) 13.0 H Seg Neutrophils # Seg Neutrophils # Man 13.2 H Lymphocytes # (Manual) Monocytes # (Manual) 2.5 H Basophils # (Manual) 0.2 H Percent Retic PT INR APTT Heparin Anti-Xa Level 0.16 L POC ABG pH POC ABG pCO2 POC ABG pO2 Sodium 151 H Potassium Chloride 112.9 H Carbon Dioxide BUN 24 H Creatinine 0.7 L Glucose 303 H POC Glucose Calcium Phosphorus Iron TIBC Lactate Dehydrogenase Total Creatine Kinase NT-Pro-B Natriuret Pep Total Protein Albumin Urwkg-1-Tswophovr Wdnyg-7-Audnizxkq Beta Globulins PEP Interpretation Cholesterol LDL Cholesterol Direct Vitamin B12 Urine WBC (Auto) Urine Creatinine Crossmatch 05/03/16 05/03/16 05/04/16 12:08 18:05 00:11 WBC RBC Hgb Hct MCV MCH MCHC RDW Plt Count Lymph % (Auto) [place] % (Auto) Lymph # [place] # Baso # Seg Neutrophils % Seg Neuts % (Manual) Lymphocytes % (Manual) Monocytes % (Manual) Seg Neutrophils # Seg Neutrophils # Man Lymphocytes # (Manual) Monocytes # (Manual) Basophils # (Manual) Percent Retic PT INR APTT Heparin Anti-Xa Level POC ABG pH POC ABG pCO2 POC ABG pO2 Sodium Potassium Chloride Carbon Dioxide BUN Creatinine Glucose POC Glucose 452 H 370 H 374 H Calcium Phosphorus Iron TIBC Lactate Dehydrogenase Total Creatine Kinase NT-Pro-B Natriuret Pep Total Protein Albumin Wckkz-1-Iplfivhdw Fiyex-4-Upfkfvqus Beta Globulins PEP Interpretation Cholesterol LDL Cholesterol Direct Vitamin B12 Urine WBC (Auto) Urine Creatinine Crossmatch 0105/04/16 05/04/16 04:31 04:31 04:31 WBC 19.8 H RBC 2.90 L Hgb 7.8 L Hct 23.8 L MCV 82 L MCH 27 L MCHC RDW 17.9 H Plt Count 504 H Lymph % (Auto) [place] % (Auto) Lymph # [place] # Baso # Seg Neutrophils % Seg Neuts % (Manual) Lymphocytes % (Manual) 11.0 L Monocytes % (Manual) 8.0 H Seg Neutrophils # Seg Neutrophils # Man 13.3 H Lymphocytes # (Manual) Monocytes # (Manual) 1.6 H Basophils # (Manual) Percent Retic PT INR APTT Heparin Anti-Xa Level 0.15 L POC ABG pH POC ABG pCO2 POC ABG pO2 Sodium 146 H Potassium Chloride Carbon Dioxide BUN 30 H Creatinine 0.7 L Glucose 321 H POC Glucose Calcium 8.3 L Phosphorus Iron TIBC Lactate Dehydrogenase Total Creatine Kinase NT-Pro-B Natriuret Pep Total Protein Albumin Oqrzh-7-Zorxkzhro Bavcr-8-Stpvrdfcj Beta Globulins PEP Interpretation Cholesterol LDL Cholesterol Direct Vitamin B12 Urine WBC (Auto) Urine Creatinine Crossmatch 05/04/16 05/04/16 05/04/16 10:20 11:57 17:36 WBC RBC Hgb Hct MCV MCH MCHC RDW Plt Count Lymph % (Auto) [place] % (Auto) Lymph # [place] # Baso # Seg Neutrophils % Seg Neuts % (Manual) Lymphocytes % (Manual) Monocytes % (Manual) Seg Neutrophils # Seg Neutrophils # Man Lymphocytes # (Manual) Monocytes # (Manual) Basophils # (Manual) Percent Retic PT INR APTT Heparin Anti-Xa Level POC ABG pH POC ABG pCO2 POC ABG pO2 Sodium Potassium Chloride Carbon Dioxide BUN Creatinine Glucose POC Glucose 303 H 271 H Calcium Phosphorus Iron TIBC Lactate Dehydrogenase Total Creatine Kinase NT-Pro-B Natriuret Pep Total Protein Albumin Aidav-6-Yqluikvkg Chlqd-7-Lfpdsljlc Beta Globulins PEP Interpretation Cholesterol LDL Cholesterol Direct Vitamin B12 Urine WBC (Auto) > 182.0 H Urine Creatinine Crossmatch 05/04/16 05/05/16 05/05/16 23:53 04:13 04:13 WBC 20.9 H RBC 2.92 L Hgb 7.6 L Hct 23.9 L MCV 82 L MCH 26 L MCHC RDW 17.9 H Plt Count 526 H Lymph % (Auto) [place] % (Auto) Lymph # [place] # Baso # Seg Neutrophils % Seg Neuts % (Manual) 93.0 H Lymphocytes % (Manual) 2.0 L Monocytes % (Manual) Seg Neutrophils # Seg Neutrophils # Man 19.4 H Lymphocytes # (Manual) 0.4 L Monocytes # (Manual) Basophils # (Manual) Percent Retic PT INR APTT Heparin Anti-Xa Level POC ABG pH POC ABG pCO2 POC ABG pO2 Sodium 146 H Potassium Chloride Carbon Dioxide BUN 30 H Creatinine 0.7 L Glucose 250 H POC Glucose 235 H Calcium 8.1 L Phosphorus Iron TIBC Lactate Dehydrogenase Total Creatine Kinase NT-Pro-B Natriuret Pep Total Protein Albumin Aauki-2-Uktbfdllj Jhtvo-0-Ichrafwjp Beta Globulins PEP Interpretation Cholesterol LDL Cholesterol Direct Vitamin B12 Urine WBC (Auto) Urine Creatinine Crossmatch 05/05/16 05/05/16 05/05/16 05:27 07:36 12:06 WBC RBC Hgb Hct MCV MCH MCHC RDW Plt Count Lymph % (Auto) [place] % (Auto) Lymph # [place] # Baso # Seg Neutrophils % Seg Neuts % (Manual) Lymphocytes % (Manual) Monocytes % (Manual) Seg Neutrophils # Seg Neutrophils # Man Lymphocytes # (Manual) Monocytes # (Manual) Basophils # (Manual) Percent Retic PT INR APTT Heparin Anti-Xa Level < 0.10 L POC ABG pH POC ABG pCO2 POC ABG pO2 Sodium Potassium Chloride Carbon Dioxide BUN Creatinine Glucose POC Glucose 287 H 301 H Calcium Phosphorus Iron TIBC Lactate Dehydrogenase Total Creatine Kinase NT-Pro-B Natriuret Pep Total Protein Albumin Cjjcv-5-Egboxddie Frmeq-5-Smmmrwalt Beta Globulins PEP Interpretation Cholesterol LDL Cholesterol Direct Vitamin B12 Urine WBC (Auto) Urine Creatinine Crossmatch 05/05/16 05/05/16 05/06/16 15:58 17:30 00:10 WBC RBC Hgb Hct MCV MCH MCHC RDW Plt Count Lymph % (Auto) [place] % (Auto) Lymph # [place] # Baso # Seg Neutrophils % Seg Neuts % (Manual) Lymphocytes % (Manual) Monocytes % (Manual) Seg Neutrophils # Seg Neutrophils # Man Lymphocytes # (Manual) Monocytes # (Manual) Basophils # (Manual) Percent Retic PT INR APTT Heparin Anti-Xa Level 0.17 L POC ABG pH POC ABG pCO2 POC ABG pO2 Sodium Potassium Chloride Carbon Dioxide BUN Creatinine Glucose POC Glucose 226 H 161 H Calcium Phosphorus Iron TIBC Lactate Dehydrogenase Total Creatine Kinase NT-Pro-B Natriuret Pep Total Protein Albumin Nxesx-9-Jyhriaany Sptjg-6-Atjvtpool Beta Globulins PEP Interpretation Cholesterol LDL Cholesterol Direct Vitamin B12 Urine WBC (Auto) Urine Creatinine Crossmatch 05/06/16 05/06/16 05/06/16 04:23 05:30 05:37 WBC RBC Hgb Hct MCV MCH MCHC RDW Plt Count Lymph % (Auto) [place] % (Auto) Lymph # [place] # Baso # Seg Neutrophils % Seg Neuts % (Manual) Lymphocytes % (Manual) Monocytes % (Manual) Seg Neutrophils # Seg Neutrophils # Man Lymphocytes # (Manual) Monocytes # (Manual) Basophils # (Manual) Percent Retic PT INR APTT Heparin Anti-Xa Level 0.15 L POC ABG pH 7.511 H POC ABG pCO2 POC ABG pO2 Sodium Potassium Chloride Carbon Dioxide BUN Creatinine Glucose POC Glucose 168 H Calcium Phosphorus Iron TIBC Lactate Dehydrogenase Total Creatine Kinase NT-Pro-B Natriuret Pep Total Protein Albumin Fozyk-1-Uatuhbzqe Irgyv-8-Curcssreg Beta Globulins PEP Interpretation Cholesterol LDL Cholesterol Direct Vitamin B12 Urine WBC (Auto) Urine Creatinine Crossmatch 05/06/16 05/06/16 05/07/16 12:48 17:22 00:04 WBC RBC Hgb Hct MCV MCH MCHC RDW Plt Count Lymph % (Auto) [place] % (Auto) Lymph # [place] # Baso # Seg Neutrophils % Seg Neuts % (Manual) Lymphocytes % (Manual) Monocytes % (Manual) Seg Neutrophils # Seg Neutrophils # Man Lymphocytes # (Manual) Monocytes # (Manual) Basophils # (Manual) Percent Retic PT INR APTT Heparin Anti-Xa Level POC ABG pH POC ABG pCO2 POC ABG pO2 Sodium Potassium Chloride Carbon Dioxide BUN Creatinine Glucose POC Glucose 206 H 160 H 164 H Calcium Phosphorus Iron TIBC Lactate Dehydrogenase Total Creatine Kinase NT-Pro-B Natriuret Pep Total Protein Albumin Eghmn-3-Ammccmltk Hdsaq-5-Qfziguzvk Beta Globulins PEP Interpretation Cholesterol LDL Cholesterol Direct Vitamin B12 Urine WBC (Auto) Urine Creatinine Crossmatch 05/07/16 05/07/16 05/07/16 04:02 05:50 11:30 WBC RBC Hgb Hct MCV MCH MCHC RDW Plt Count Lymph % (Auto) [place] % (Auto) Lymph # [place] # Baso # Seg Neutrophils % Seg Neuts % (Manual) Lymphocytes % (Manual) Monocytes % (Manual) Seg Neutrophils # Seg Neutrophils # Man Lymphocytes # (Manual) Monocytes # (Manual) Basophils # (Manual) Percent Retic PT INR APTT Heparin Anti-Xa Level 0.15 L POC ABG pH POC ABG pCO2 POC ABG pO2 Sodium Potassium Chloride Carbon Dioxide BUN Creatinine Glucose POC Glucose 177 H 240 H Calcium Phosphorus Iron TIBC Lactate Dehydrogenase Total Creatine Kinase NT-Pro-B Natriuret Pep Total Protein Albumin Vevsc-3-Hbtcfmvga Ottwy-7-Llblcykjt Beta Globulins PEP Interpretation Cholesterol LDL Cholesterol Direct Vitamin B12 Urine WBC (Auto) Urine Creatinine Crossmatch 05/07/16 05/07/16 05/07/16 12:46 17:57 23:54 WBC 20.8 H RBC 2.86 L Hgb 7.6 L Hct 23.3 L MCV 81 L MCH 26 L MCHC RDW 17.9 H Plt Count 559 H Lymph % (Auto) [place] % (Auto) Lymph # [place] # Baso # Seg Neutrophils % Seg Neuts % (Manual) Lymphocytes % (Manual) Monocytes % (Manual) Seg Neutrophils # Seg Neutrophils # Man Lymphocytes # (Manual) Monocytes # (Manual) Basophils # (Manual) Percent Retic PT INR APTT Heparin Anti-Xa Level POC ABG pH POC ABG pCO2 POC ABG pO2 Sodium Potassium Chloride Carbon Dioxide BUN Creatinine Glucose POC Glucose 279 H 201 H Calcium Phosphorus Iron TIBC Lactate Dehydrogenase Total Creatine Kinase NT-Pro-B Natriuret Pep Total Protein Albumin Qrzal-0-Mruqnkfqa Rthhe-2-Zaulnvfkw Beta Globulins PEP Interpretation Cholesterol LDL Cholesterol Direct Vitamin B12 Urine WBC (Auto) Urine Creatinine Crossmatch 05/08/16 05/08/16 05/08/16 04:04 05:39 12:09 WBC RBC Hgb Hct MCV MCH MCHC RDW Plt Count Lymph % (Auto) [place] % (Auto) Lymph # [place] # Baso # Seg Neutrophils % Seg Neuts % (Manual) Lymphocytes % (Manual) Monocytes % (Manual) Seg Neutrophils # Seg Neutrophils # Man Lymphocytes # (Manual) Monocytes # (Manual) Basophils # (Manual) Percent Retic PT INR APTT Heparin Anti-Xa Level 0.20 L POC ABG pH POC ABG pCO2 POC ABG pO2 Sodium Potassium Chloride Carbon Dioxide BUN Creatinine Glucose POC Glucose 153 H 188 H Calcium Phosphorus Iron TIBC Lactate Dehydrogenase Total Creatine Kinase NT-Pro-B Natriuret Pep Total Protein Albumin Kstxn-8-Ahbkqgkyf Zkzln-5-Eoyfxnpip Beta Globulins PEP Interpretation Cholesterol LDL Cholesterol Direct Vitamin B12 Urine WBC (Auto) Urine Creatinine Crossmatch 05/08/16 05/08/16 05/08/16 17:44 17:49 18:51 WBC RBC Hgb Hct MCV MCH MCHC RDW Plt Count Lymph % (Auto) [place] % (Auto) Lymph # [place] # Baso # Seg Neutrophils % Seg Neuts % (Manual) Lymphocytes % (Manual) Monocytes % (Manual) Seg Neutrophils # Seg Neutrophils # Man Lymphocytes # (Manual) Monocytes # (Manual) Basophils # (Manual) Percent Retic PT INR APTT Heparin Anti-Xa Level POC ABG pH POC ABG pCO2 POC ABG pO2 Sodium Potassium Chloride Carbon Dioxide BUN Creatinine Glucose POC Glucose 56 L 61 L 135 H Calcium Phosphorus Iron TIBC Lactate Dehydrogenase Total Creatine Kinase NT-Pro-B Natriuret Pep Total Protein Albumin Lmwvw-6-Ngwlkfwgp Zmgap-0-Zbaxenpiy Beta Globulins PEP Interpretation Cholesterol LDL Cholesterol Direct Vitamin B12 Urine WBC (Auto) Urine Creatinine Crossmatch 05/09/16 05/09/16 05/09/16 00:14 04:07 05:18 WBC RBC Hgb Hct MCV MCH MCHC RDW Plt Count Lymph % (Auto) [place] % (Auto) Lymph # [place] # Baso # Seg Neutrophils % Seg Neuts % (Manual) Lymphocytes % (Manual) Monocytes % (Manual) Seg Neutrophils # Seg Neutrophils # Man Lymphocytes # (Manual) Monocytes # (Manual) Basophils # (Manual) Percent Retic PT INR APTT Heparin Anti-Xa Level 0.21 L POC ABG pH POC ABG pCO2 POC ABG pO2 Sodium Potassium Chloride Carbon Dioxide BUN Creatinine Glucose POC Glucose 151 H 215 H Calcium Phosphorus Iron TIBC Lactate Dehydrogenase Total Creatine Kinase NT-Pro-B Natriuret Pep Total Protein Albumin Chkit-8-Jwsinocfl Tsxbs-7-Dvrvidfty Beta Globulins PEP Interpretation Cholesterol LDL Cholesterol Direct Vitamin B12 Urine WBC (Auto) Urine Creatinine Crossmatch 05/09/16 05/09/16 05/09/16 12:27 16:39 17:30 WBC RBC Hgb 6.4 L Hct 20.2 L MCV MCH MCHC RDW Plt Count Lymph % (Auto) [place] % (Auto) Lymph # [place] # Baso # Seg Neutrophils % Seg Neuts % (Manual) Lymphocytes % (Manual) Monocytes % (Manual) Seg Neutrophils # Seg Neutrophils # Man Lymphocytes # (Manual) Monocytes # (Manual) Basophils # (Manual) Percent Retic PT INR APTT Heparin Anti-Xa Level POC ABG pH POC ABG pCO2 POC ABG pO2 Sodium Potassium Chloride Carbon Dioxide BUN Creatinine Glucose POC Glucose 291 H 220 H Calcium Phosphorus Iron TIBC Lactate Dehydrogenase Total Creatine Kinase NT-Pro-B Natriuret Pep Total Protein Albumin Cnncw-3-Zbpfhfuwh Urkjn-6-Vqoolhmxe Beta Globulins PEP Interpretation Cholesterol LDL Cholesterol Direct Vitamin B12 Urine WBC (Auto) Urine Creatinine Crossmatch 05/09/16 05/09/16 05/10/16 19:47 23:57 03:55 WBC 16.9 H RBC 3.20 L Hgb 8.6 L Hct 26.7 L D MCV 83 L MCH 27 L MCHC RDW 17.5 H Plt Count 488 H Lymph % (Auto) [place] % (Auto) Lymph # [place] # Baso # Seg Neutrophils % Seg Neuts % (Manual) 76.0 H Lymphocytes % (Manual) 9.0 L Monocytes % (Manual) 10.0 H Seg Neutrophils # Seg Neutrophils # Man 12.8 H Lymphocytes # (Manual) Monocytes # (Manual) 1.7 H Basophils # (Manual) Percent Retic PT INR APTT Heparin Anti-Xa Level POC ABG pH POC ABG pCO2 POC ABG pO2 Sodium Potassium Chloride Carbon Dioxide BUN Creatinine Glucose POC Glucose 217 H Calcium Phosphorus Iron TIBC Lactate Dehydrogenase Total Creatine Kinase NT-Pro-B Natriuret Pep Total Protein Albumin Lmxdf-1-Tunupklsd Gqvmv-9-Lvzrnbtzb Beta Globulins PEP Interpretation Cholesterol LDL Cholesterol Direct Vitamin B12 Urine WBC (Auto) Urine Creatinine Crossmatch See Detail 05/10/16 05/10/16 05/10/16 05:05 11:49 12:54 WBC RBC Hgb 9.1 L Hct 28.2 L MCV MCH MCHC RDW Plt Count Lymph % (Auto) [place] % (Auto) Lymph # [place] # Baso # Seg Neutrophils % Seg Neuts % (Manual) Lymphocytes % (Manual) Monocytes % (Manual) Seg Neutrophils # Seg Neutrophils # Man Lymphocytes # (Manual) Monocytes # (Manual) Basophils # (Manual) Percent Retic PT INR APTT Heparin Anti-Xa Level POC ABG pH POC ABG pCO2 POC ABG pO2 Sodium Potassium Chloride Carbon Dioxide BUN Creatinine Glucose POC Glucose 182 H 237 H Calcium Phosphorus Iron TIBC Lactate Dehydrogenase Total Creatine Kinase NT-Pro-B Natriuret Pep Total Protein Albumin Cffvb-0-Bwiysnxdh Poasf-9-Rbomxkfjk Beta Globulins PEP Interpretation Cholesterol LDL Cholesterol Direct Vitamin B12 Urine WBC (Auto) Urine Creatinine Crossmatch 05/10/16 05/10/16 05/10/16 12:54 17:29 23:07 WBC RBC Hgb Hct MCV MCH MCHC RDW Plt Count Lymph % (Auto) [place] % (Auto) Lymph # [place] # Baso # Seg Neutrophils % Seg Neuts % (Manual) Lymphocytes % (Manual) Monocytes % (Manual) Seg Neutrophils # Seg Neutrophils # Man Lymphocytes # (Manual) Monocytes # (Manual) Basophils # (Manual) Percent Retic PT INR 1.14 H APTT Heparin Anti-Xa Level POC ABG pH POC ABG pCO2 POC ABG pO2 Sodium Potassium Chloride Carbon Dioxide BUN Creatinine Glucose POC Glucose 198 H 172 H Calcium Phosphorus Iron TIBC Lactate Dehydrogenase Total Creatine Kinase NT-Pro-B Natriuret Pep Total Protein Albumin Sxiit-3-Dnjajzipt Sikdh-6-Hnccwkucb Beta Globulins PEP Interpretation Cholesterol LDL Cholesterol Direct Vitamin B12 Urine WBC (Auto) Urine Creatinine Crossmatch 05/11/16 05/11/16 05/11/16 04:16 04:16 05:13 WBC 16.1 H RBC 3.27 L Hgb 8.8 L Hct 27.7 L MCV MCH 27 L MCHC RDW 17.9 H Plt Count 475 H Lymph % (Auto) 8.9 L [place] % (Auto) 8.0 H Lymph # [place] # 1.3 H Baso # Seg Neutrophils % 81.6 H Seg Neuts % (Manual) Lymphocytes % (Manual) Monocytes % (Manual) Seg Neutrophils # 13.1 H Seg Neutrophils # Man Lymphocytes # (Manual) Monocytes # (Manual) Basophils # (Manual) Percent Retic PT INR APTT Heparin Anti-Xa Level POC ABG pH POC ABG pCO2 POC ABG pO2 Sodium 152 H Potassium Chloride 114.2 H Carbon Dioxide BUN 23 H Creatinine 0.6 L Glucose 166 H POC Glucose 173 H Calcium 8.0 L Phosphorus Iron TIBC Lactate Dehydrogenase Total Creatine Kinase NT-Pro-B Natriuret Pep Total Protein Albumin Aswnz-4-Uehmaukmq Becjk-1-Vziocqpzw Beta Globulins PEP Interpretation Cholesterol LDL Cholesterol Direct Vitamin B12 Urine WBC (Auto) Urine Creatinine Crossmatch 05/11/16 05/11/1617 11:30 17:20 23:53 WBC RBC Hgb Hct MCV MCH MCHC RDW Plt Count Lymph % (Auto) [place] % (Auto) Lymph # [place] # Baso # Seg Neutrophils % Seg Neuts % (Manual) Lymphocytes % (Manual) Monocytes % (Manual) Seg Neutrophils # Seg Neutrophils # Man Lymphocytes # (Manual) Monocytes # (Manual) Basophils # (Manual) Percent Retic PT INR APTT Heparin Anti-Xa Level POC ABG pH POC ABG pCO2 POC ABG pO2 Sodium Potassium Chloride Carbon Dioxide BUN Creatinine Glucose POC Glucose 192 H 147 H 164 H Calcium Phosphorus Iron TIBC Lactate Dehydrogenase Total Creatine Kinase NT-Pro-B Natriuret Pep Total Protein Albumin Anoed-8-Qslonsxzz Slauy-4-Cpdzqmqgr Beta Globulins PEP Interpretation Cholesterol LDL Cholesterol Direct Vitamin B12 Urine WBC (Auto) Urine Creatinine Crossmatch 05/12/16 05/12/16 05/12/16 05:35 07:33 11:01 WBC RBC Hgb 9.2 L Hct 29.2 L MCV MCH MCHC RDW Plt Count 503 H Lymph % (Auto) [place] % (Auto) Lymph # [place] # Baso # Seg Neutrophils % Seg Neuts % (Manual) Lymphocytes % (Manual) Monocytes % (Manual) Seg Neutrophils # Seg Neutrophils # Man Lymphocytes # (Manual) Monocytes # (Manual) Basophils # (Manual) Percent Retic PT INR APTT Heparin Anti-Xa Level POC ABG pH POC ABG pCO2 POC ABG pO2 Sodium 148 H Potassium Chloride 108.5 H Carbon Dioxide BUN Creatinine 0.5 L Glucose 146 H POC Glucose 145 H Calcium 8.2 L Phosphorus Iron TIBC Lactate Dehydrogenase Total Creatine Kinase NT-Pro-B Natriuret Pep Total Protein Albumin Olblr-5-Dsegwhnpg Dxzpb-5-Jsehsasyo Beta Globulins PEP Interpretation Cholesterol LDL Cholesterol Direct Vitamin B12 Urine WBC (Auto) Urine Creatinine Crossmatch 05/12/16 05/12/16 05/12/16 11:44 18:15 19:33 WBC RBC Hgb Hct MCV MCH MCHC RDW Plt Count Lymph % (Auto) [place] % (Auto) Lymph # [place] # Baso # Seg Neutrophils % Seg Neuts % (Manual) Lymphocytes % (Manual) Monocytes % (Manual) Seg Neutrophils # Seg Neutrophils # Man Lymphocytes # (Manual) Monocytes # (Manual) Basophils # (Manual) Percent Retic PT INR APTT Heparin Anti-Xa Level 0.17 L POC ABG pH POC ABG pCO2 POC ABG pO2 Sodium Potassium Chloride Carbon Dioxide BUN Creatinine Glucose POC Glucose 223 H 137 H Calcium Phosphorus Iron TIBC Lactate Dehydrogenase Total Creatine Kinase NT-Pro-B Natriuret Pep Total Protein Albumin Izihl-7-Dcnjrkrop Yugpr-2-Zhgbwjsyr Beta Globulins PEP Interpretation Cholesterol LDL Cholesterol Direct Vitamin B12 Urine WBC (Auto) Urine Creatinine Crossmatch 05/12/16 05/13/16 05/13/16 23:23 04:45 05:43 WBC 18.1 H RBC 3.26 L Hgb 9.0 L Hct 29.0 L MCV MCH MCHC 31 L RDW 18.3 H Plt Count 467 H Lymph % (Auto) [place] % (Auto) Lymph # [place] # Baso # Seg Neutrophils % Seg Neuts % (Manual) 76.0 H Lymphocytes % (Manual) 11.0 L Monocytes % (Manual) 8.0 H Seg Neutrophils # Seg Neutrophils # Man 13.8 H Lymphocytes # (Manual) Monocytes # (Manual) 1.4 H Basophils # (Manual) 0.2 H Percent Retic PT INR APTT Heparin Anti-Xa Level POC ABG pH POC ABG pCO2 POC ABG pO2 Sodium Potassium Chloride Carbon Dioxide BUN Creatinine Glucose POC Glucose 114 H 136 H Calcium Phosphorus Iron TIBC Lactate Dehydrogenase Total Creatine Kinase NT-Pro-B Natriuret Pep Total Protein Albumin Itgrd-0-Fpowsiqgi Lftww-2-Esjkxllki Beta Globulins PEP Interpretation Cholesterol LDL Cholesterol Direct Vitamin B12 Urine WBC (Auto) Urine Creatinine Crossmatch 05/13/16 05/13/16 05/13/16 07:04 08:13 11:22 WBC RBC Hgb Hct MCV MCH MCHC RDW Plt Count Lymph % (Auto) [place] % (Auto) Lymph # [place] # Baso # Seg Neutrophils % Seg Neuts % (Manual) Lymphocytes % (Manual) Monocytes % (Manual) Seg Neutrophils # Seg Neutrophils # Man Lymphocytes # (Manual) Monocytes # (Manual) Basophils # (Manual) Percent Retic PT INR APTT Heparin Anti-Xa Level 0.25 L POC ABG pH POC ABG pCO2 POC ABG pO2 Sodium Potassium Chloride 109.1 H Carbon Dioxide BUN Creatinine 0.5 L Glucose 131 H POC Glucose 155 H Calcium 8.1 L Phosphorus Iron TIBC Lactate Dehydrogenase Total Creatine Kinase NT-Pro-B Natriuret Pep Total Protein Albumin Msupo-4-Hjqepmspu Yqpsr-8-Xbipcxxwk Beta Globulins PEP Interpretation Cholesterol LDL Cholesterol Direct Vitamin B12 Urine WBC (Auto) Urine Creatinine Crossmatch 05/13/16 05/13/16 05/13/16 17:29 17:33 17:59 WBC RBC Hgb Hct MCV MCH MCHC RDW Plt Count Lymph % (Auto) [place] % (Auto) Lymph # [place] # Baso # Seg Neutrophils % Seg Neuts % (Manual) Lymphocytes % (Manual) Monocytes % (Manual) Seg Neutrophils # Seg Neutrophils # Man Lymphocytes # (Manual) Monocytes # (Manual) Basophils # (Manual) Percent Retic PT INR APTT Heparin Anti-Xa Level POC ABG pH POC ABG pCO2 POC ABG pO2 Sodium Potassium Chloride Carbon Dioxide BUN Creatinine Glucose POC Glucose 46 L < 40 L 152 H Calcium Phosphorus Iron TIBC Lactate Dehydrogenase Total Creatine Kinase NT-Pro-B Natriuret Pep Total Protein Albumin Vpbbs-9-Upynmrtff Exiue-0-Lxgakemiz Beta Globulins PEP Interpretation Cholesterol LDL Cholesterol Direct Vitamin B12 Urine WBC (Auto) Urine Creatinine Crossmatch 05/13/16 05/14/16 05/14/16 18:06 04:31 04:31 WBC 18.0 H RBC Hgb 10.2 L Hct 32.6 L MCV MCH 27 L MCHC 31 L RDW 17.5 H Plt Count 576 H Lymph % (Auto) 8.9 L [place] % (Auto) 9.3 H Lymph # [place] # 1.7 H Baso # Seg Neutrophils % 80.5 H Seg Neuts % (Manual) Lymphocytes % (Manual) Monocytes % (Manual) Seg Neutrophils # 14.5 H Seg Neutrophils # Man Lymphocytes # (Manual) Monocytes # (Manual) Basophils # (Manual) Percent Retic PT INR APTT Heparin Anti-Xa Level < 0.10 L POC ABG pH POC ABG pCO2 POC ABG pO2 Sodium Potassium Chloride Carbon Dioxide BUN Creatinine 0.6 L Glucose POC Glucose Calcium Phosphorus Iron TIBC Lactate Dehydrogenase Total Creatine Kinase NT-Pro-B Natriuret Pep Total Protein Albumin Pcrwt-4-Mgsyffhar Tluiy-3-Fnzvwvluo Beta Globulins PEP Interpretation Cholesterol LDL Cholesterol Direct Vitamin B12 Urine WBC (Auto) Urine Creatinine Crossmatch 05/14/16 05:50 WBC RBC Hgb Hct MCV MCH MCHC RDW Plt Count Lymph % (Auto) [place] % (Auto) Lymph # [place] # Baso # Seg Neutrophils % Seg Neuts % (Manual) Lymphocytes % (Manual) Monocytes % (Manual) Seg Neutrophils # Seg Neutrophils # Man Lymphocytes # (Manual) Monocytes # (Manual) Basophils # (Manual) Percent Retic PT INR APTT Heparin Anti-Xa Level POC ABG pH POC ABG pCO2 POC ABG pO2 Sodium Potassium Chloride Carbon Dioxide BUN Creatinine Glucose POC Glucose 136 H Calcium Phosphorus Iron TIBC Lactate Dehydrogenase Total Creatine Kinase NT-Pro-B Natriuret Pep Total Protein Albumin Kegue-5-Blttlvsbo Krfxq-7-Vyrklvebe Beta Globulins PEP Interpretation Cholesterol LDL Cholesterol Direct Vitamin B12 Urine WBC (Auto) Urine Creatinine Crossmatch Chest x-ray: report reviewed, image reviewed
[2016-05-15] MEDS: DUONEB 0.5 MG-3 MG/3 ML SOLN IH SCH ×4 (01:28→19:14)
[2016-05-15 06:02] LABS: Basophils % (Auto) 0.5 % (0.0-1.8); Eosinophils % (Auto) 0.8 % (0.0-4.3); Hematocrit 29.4 % (35.5-45.6); Hemoglobin 9.3 gm/dl (11.8-15.2); Mean Corpuscular HGB Conc 32 % (32-34); Mean Corpuscular Hemoglobin 26 pg (28-32); Mean Corpuscular Volume 83 fl (84-94); Platelet Count 586 K/mm3 (140-440); Red Blood Count 3.54 M/mm3 (3.65-5.03); Red Cell Distribution Width 17.7 % (13.2-15.2); White Blood Count 16.4 K/mm3 (4.5-11.0)
[2016-05-15] MEDS: ZOSYN/NS 4.5GM/100ML 100 ML IV SCH ×4 (06:02→23:48)
[2016-05-15 06:16] LABS: Anion Gap 16 mmol/L; Blood Urea Nitrogen 18 mg/dL (9-20); Calcium 8.5 mg/dL (8.4-10.2); Carbon Dioxide 26 mmol/L (22-30); Chloride 105.8 mmol/L (98-107); Glucose 220 mg/dL (75-100); Potassium 4.2 mmol/L (3.6-5.0); Sodium 144 mmol/L (137-145)
[2016-05-15] MEDS: NOVOLOG SUB-Q SCH ×4 (07:01→18:21)
[2016-05-15] MEDS: NORVASC PO SCH (09:02)
[2016-05-15] MEDS: PEPCID PO SCH ×2 (09:02→22:05)
[2016-05-15] MEDS: CORDARONE PO SCH (09:03)
[2016-05-15] MEDS: ZESTRIL PO SCH ×2 (09:03→22:05)
[2016-05-15] MEDS: KEPPRA PO SCH ×2 (09:03→22:07)
[2016-05-15] MEDS: NORMODYNE PO SCH ×3 (09:03→20:06)
[2016-05-15] MEDS: LEVEMIR SUB-Q SCH (09:33)
--- NOTE | 2016-05-15 10:44 | Progress Note ---
Assessment and Plan Assessment and plan: 1. Acute respiratory failure. Patient reintubated on 04/17/16. Continue mechanical ventilation per pulmonary. Tracheostomy on 04/29/16. Continue T piece. 2. Acute CVA. CT scan revealed acute ischemic infarct in the right cerebellum. MRI reveals subacute infarct in the right cerebellar hemisphere with associated edema and mass effect as previously described. Patient also with multiple areas of acute infarct in the left occipital and frontal lobes that are most likely embolic. LIZZIE done- No thrombus but decreased flow. Cardiology recommends anticoagulation with Coumadin. 3. Hypotension. Resolved. Patient currently off pressors. Echocardiogram revealed EF of 50-55%. 4. Encephalopathy. EEG normal. Etiology likely secondary to CVA +/- hypertension. 5. UTI-continue Zosyn for now. 6. Accelerated hypertension. Continue antihypertensive medications 7. CAD-stable 8. Seizures-continue Keppra. EEG normal. 9. Type 2 diabetes mellitus. Glycemic control. 10. History of aortic dissection status post repair. 11. History of prosthetic aortic valve replacement. Echo with normal function on 08/2015. Heparin on hold secondary to trach site bleeding. 12. DVT prophylaxis. Heparin drip on hold. 13. GI prophylaxis-Pepcid 14. Oropharyngeal dysphagia. Patient failed swallow evaluation. Status post PEG placement on 04/17. 15. Anemia. Monitor H&H closely. 16. Hypernatremia. Resolved. Continue free water. 17. Tracheostomy site bleeding. We will hold heparin for now and monitor. Surgery following. 18. Neck Cellulitis. Continue Zosyn. History Interval history: 60 years old -[place] male with nonobstructive CAD per recent CAD, hypertension, hyperlipidemia, bioprosthetic aortic valve replacement, chronic kidney disease, diabetes and seizure disorder who was initially admitted for metabolic encephalopathy with hypernatremia. Patient developed respiratory failure during this hospitalization on 03/27 and was intubated placed on mechanical ventilation. Patient was later extubated during his hospitalization but was reintubated on the evening of 04/16/16. Patient now remains intubated on mechanical ventilation. Patient is also status post PEG tube placement on . Patient remains on mechanical ventilation. Patient status post tracheostomy on 04/29/16. Nursing staff reported that there was slight bleeding at trachesotomy site when heparin drip was turned on. Trach bleeding has stopped. Hospitalist Physical - Constitutional Vitals: Temp Pulse Resp BP Pulse Ox 99.0 F 99 H 28 H 140/86 100 05/15/16 07:12 05/15/16 09:03 05/15/16 08:15 05/15/16 09:03 05/15/16 08:02 General appearance: Present: no acute distress, other (tracheostomy) - EENT Eyes: Present: PERRL, EOM intact ENT: hearing intact, clear oral mucosa, dentition normal - Neck Neck: Present: supple, normal ROM - Respiratory Respiratory effort: normal Respiratory: bilateral: diminished, rhonchi - Cardiovascular Rhythm: regular Heart Sounds: Present: S1 & S2. Absent: gallop, rub - Extremities Extremities: no ischemia, No edema, Full ROM - Abdominal General gastrointestinal: soft, non-tender, non-distended, normal bowel sounds - Integumentary Integumentary: Present: clear, warm, dry - Neurologic Neurologic: CNII-XII intact, moves all extremities Results - Labs CBC & Chem 7: 05/15/16 04:37 05/15/16 04:37 Labs: Laboratory Last Values WBC 16.4 K/mm3 (4.5-11.0) H 05/15/16 04:37 RBC 3.54 M/mm3 (3.65-5.03) L 05/15/16 04:37 Hgb 9.3 gm/dl (11.8-15.2) L 05/15/16 04:37 Hct 29.4 % (35.5-45.6) L 05/15/16 04:37 MCV 83 fl (84-94) L 05/15/16 04:37 MCH 26 pg (28-32) L 05/15/16 04:37 MCHC 32 % (32-34) 05/15/16 04:37 RDW 17.7 % (13.2-15.2) H 05/15/16 04:37 Plt Count 586 K/mm3 (140-440) H 05/15/16 04:37 Lymph % (Auto) 6.7 % (13.4-35.0) L 05/15/16 04:37 [place] % (Auto) 8.3 % (0.0-7.3) H 05/15/16 04:37 Eos % (Auto) 0.8 % (0.0-4.3) 05/15/16 04:37 Baso % (Auto) 0.5 % (0.0-1.8) 05/15/16 04:37 Lymph # 1.1 K/mm3 (1.2-5.4) L 05/15/16 04:37 [place] # 1.4 K/mm3 (0.0-0.8) H 05/15/16 04:37 Eos # 0.1 K/mm3 (0.0-0.4) 05/15/16 04:37 Baso # 0.1 K/mm3 (0.0-0.1) 05/15/16 04:37 Add Manual Diff Complete 05/13/16 04:45 Total Counted 100 05/13/16 04:45 Seg Neutrophils % 83.7 % (40.0-70.0) H 05/15/16 04:37 Seg Neuts % (Manual) 76.0 % (40.0-70.0) H 05/13/16 04:45 Band Neutrophils % 3.0 % 05/13/16 04:45 Lymphocytes % (Manual) 11.0 % (13.4-35.0) L 05/13/16 04:45 Reactive Lymphs % (Man) 0 % 05/13/16 04:45 Monocytes % (Manual) 8.0 % (0.0-7.3) H 05/13/16 04:45 Eosinophils % (Manual) 1.0 % (0.0-4.3) 05/13/16 04:45 Basophils % (Manual) 1.0 % (0.0-1.8) 05/13/16 04:45 Metamyelocytes % 0 % 05/13/16 04:45 Myelocytes % 0 % 05/13/16 04:45 Promyelocytes % 0 % 05/13/16 04:45 Blast Cells % 0 % 05/13/16 04:45 Nucleated RBC % Not Reportable 05/13/16 04:45 Seg Neutrophils # 13.7 K/mm3 (1.8-7.7) H 05/15/16 04:37 Seg Neutrophils # Man 13.8 K/mm3 (1.8-7.7) H 05/13/16 04:45 Band Neutrophils # 0.5 K/mm3 05/13/16 04:45 Lymphocytes # (Manual) 2.0 K/mm3 (1.2-5.4) 05/13/16 04:45 Abs React Lymphs (Man) 0.0 K/mm3 05/13/16 04:45 Monocytes # (Manual) 1.4 K/mm3 (0.0-0.8) H 05/13/16 04:45 Eosinophils # (Manual) 0.2 K/mm3 (0.0-0.4) 05/13/16 04:45 Basophils # (Manual) 0.2 K/mm3 (0.0-0.1) H 05/13/16 04:45 Metamyelocytes # 0.0 K/mm3 05/13/16 04:45 Myelocytes # 0.0 K/mm3 05/13/16 04:45 Promyelocytes # 0.0 K/mm3 05/13/16 04:45 Blast Cells # 0.0 K/mm3 05/13/16 04:45 WBC Morphology Not Reportable 05/13/16 04:45 Hypersegmented Neuts Not Reportable 05/13/16 04:45 Hyposegmented Neuts Not Reportable 05/13/16 04:45 Hypogranular Neuts Not Reportable 05/13/16 04:45 Smudge Cells Not Reportable 05/13/16 04:45 Toxic Granulation Not Reportable 05/13/16 04:45 Toxic Vacuolation Not Reportable 05/13/16 04:45 Dohle Bodies Not Reportable 05/13/16 04:45 Pelger-Huet Anomaly Not Reportable 05/13/16 04:45 Corina Rods Not Reportable 05/13/16 04:45 Platelet Estimate Consistent w auto 05/13/16 04:45 Clumped Platelets Not Reportable 05/13/16 04:45 Plt Clumps, EDTA Not Reportable 05/13/16 04:45 Large Platelets Not Reportable 05/13/16 04:45 Giant Platelets Not Reportable 05/13/16 04:45 Platelet Satelliting Not Reportable 05/13/16 04:45 Plt Morphology Comment Not Reportable 05/13/16 04:45 RBC Morphology Not Reportable 05/13/16 04:45 Dimorphic RBCs Not Reportable 05/13/16 04:45 Polychromasia Rare 05/13/16 04:45 Hypochromasia Not Reportable 05/13/16 04:45 Poikilocytosis Not Reportable 05/13/16 04:45 Anisocytosis 1+ 05/13/16 04:45 Microcytosis Not Reportable 05/13/16 04:45 Macrocytosis Rare 05/13/16 04:45 Spherocytes Not Reportable 05/13/16 04:45 Pappenheimer Bodies Not Reportable 05/13/16 04:45 Sickle Cells Not Reportable 05/13/16 04:45 Target Cells Not Reportable 05/13/16 04:45 Tear Drop Cells Not Reportable 05/13/16 04:45 Ovalocytes Not Reportable 05/13/16 04:45 Helmet Cells Not Reportable 05/13/16 04:45 Mcgrath-Swisher Bodies Not Reportable 05/13/16 04:45 Sarita Rings Not Reportable 05/13/16 04:45 [place] Cells Not Reportable 05/13/16 04:45 Bite Cells Not Reportable 05/13/16 04:45 Crenated Cell Not Reportable 05/13/16 04:45 Elliptocytes Not Reportable 05/13/16 04:45 Acanthocytes (Spur) Not Reportable 05/13/16 04:45 Rouleaux Not Reportable 05/13/16 04:45 Hemoglobin C Crystals Not Reportable 05/13/16 04:45 Schistocytes Not Reportable 05/13/16 04:45 Malaria parasites Not Reportable 05/13/16 04:45 Percent Retic 3.68 % (0.78-2.58) H 04/29/16 10:16 Gideon Bodies Not Reportable 05/13/16 04:45 Hem Pathologist Commnt No 05/13/16 04:45 PT 13.8 Sec. (12.2-14.9) 05/12/16 11:01 INR 1.07 (0.87-1.13) 05/12/16 11:01 APTT 27.2 Sec. (24.2-36.6) 05/12/16 11:01 Heparin Anti-Xa Level < 0.10 U.I./ml (0.3-0.7) L 05/13/16 18:06 POC ABG pH 7.511 (7.35-7.45) H 05/06/16 05:30 POC ABG pCO2 36.2 (35-45) 05/06/16 05:30 POC ABG pO2 92 (80-105) 05/06/16 05:30 POC ABG HCO3 28.9 05/06/16 05:30 POC ABG Total CO2 30 05/06/16 05:30 POC ABG O2 Sat 98 05/06/16 05:30 POC ABG Base Excess 6 05/06/16 05:30 VBG pH 7.418 (7.320-7.420) 03/24/16 14:00 FiO2 25 % 05/06/16 05:30 Sodium 144 mmol/L (137-145) 05/15/16 04:37 Potassium 4.2 mmol/L (3.6-5.0) 05/15/16 04:37 Chloride 105.8 mmol/L (98-107) 05/15/16 04:37 Carbon Dioxide 26 mmol/L (22-30) 05/15/16 04:37 Anion Gap 16 mmol/L 05/15/16 04:37 BUN 18 mg/dL (9-20) 05/15/16 04:37 Creatinine 0.6 mg/dL (0.8-1.5) L 05/15/16 04:37 Estimated GFR > 60 ml/min 05/15/16 04:37 BUN/Creatinine Ratio 30.00 % 05/15/16 04:37 Glucose 220 mg/dL (75-100) H 05/15/16 04:37 POC Glucose 265 (70-105) H 05/14/16 22:57 Hemoglobin A1c 9.6 % (4-6) H 03/24/16 14:00 Lactic Acid 1.6 mmol/L (0.7-2.0) 04/17/16 12:17 Calcium 8.5 mg/dL (8.4-10.2) 05/15/16 04:37 Phosphorus 3.1 mg/dL (2.5-4.5) 05/11/16 04:16 Magnesium 2.3 mg/dL (1.7-2.3) 05/11/16 04:16 Iron 10 ug/dL (49-181) L 04/29/16 10:16 TIBC 138 mcg/dL (250-450) L 04/29/16 10:16 Ferritin 336.4 ng/mL (13.0-400.0) 04/29/16 10:16 Total Bilirubin < 0.2 mg/dL (0.1-1.2) 04/27/16 04:21 AST 18 units/L (5-40) 04/27/16 04:21 ALT 39 units/L (7-56) 04/27/16 04:21 Alkaline Phosphatase 103 units/L (35-129) 04/27/16 04:21 Lactate Dehydrogenase 204 units/L (91-180) H 04/29/16 10:16 Total Creatine Kinase 356 units/L (55-170) H 03/28/16 13:29 Troponin T < 0.010 ng/mL (0.00-0.029) 03/28/16 13:29 NT-Pro-B Natriuret Pep 897.9 pg/mL (0-900) 04/03/16 04:10 Serum Total Protein 7.1 g/dL (6.1-8.1) 03/25/16 13:00 Total Protein 6.0 g/dL (6.3-8.2) L 04/27/16 04:21 Albumin 2.0 g/dL (3.9-5) L 04/27/16 04:21 Albumin/Globulin Ratio 0.5 % 04/27/16 04:21 [id number] See scanned report 03/31/16 12:20 [id number]-1-Kujaqaplj See scanned report 03/31/16 12:20 Beta Globulins See scanned report 03/31/16 12:20 Pssr-6-Ncjmiutzobrdk 2.46 mg/L (<=2.51) 03/25/16 13:00 Gamma Globulins See scanned report 03/31/16 12:20 Abnorm Protein Band 1 see below (()) 03/25/16 13:00 PEP Interpretation See scanned report 03/31/16 12:20 Triglycerides 88 mg/dL (2-149) 03/24/16 17:58 Cholesterol 221 mg/dL (50-199) H 03/24/16 17:58 LDL Cholesterol Direct 146 mg/dL (50-130) H 03/24/16 17:58 HDL Cholesterol 58 mg/dL (40-59) 03/24/16 17:58 Cholesterol/HDL Ratio 3.81 % 03/24/16 17:58 Vitamin B12 1005 pg/mL (211-911) H 04/29/16 10:16 Folate 12.78 ng/mL (7.3-26.0) 04/29/16 10:16 Urine Color Yellow (Yellow) 05/04/16 10:20 Urine Turbidity Cloudy (Clear) 05/04/16 10:20 Urine pH 5.0 (5.0-7.0) 05/04/16 10:20 Ur Specific [place] 1.017 (1.003-1.030) 05/04/16 10:20 Urine Protein 100 mg/dl mg/dL (Negative) 05/04/16 10:20 Urine Glucose (UA) >=500 mg/dL (Negative) 05/04/16 10:20 Urine Ketones Neg mg/dL (Negative) 05/04/16 10:20 Urine Blood Sm (Negative) 05/04/16 10:20 Urine Nitrite Neg (Negative) 05/04/16 10:20 Urine Bilirubin Neg (Negative) 05/04/16 10:20 Urine Urobilinogen 2.0 mg/dL (<2.0) 05/04/16 10:20 Ur Leukocyte Esterase Lg (Negative) 05/04/16 10:20 Urine WBC (Auto) > 182.0 /HPF (0.0-6.0) H 05/04/16 10:20 Urine RBC (Auto) 13.0 /HPF (0.0-6.0) 05/04/16 10:20 U Epithel Cells (Auto) < 1.0 /HPF (0-13.0) 05/04/16 10:20 Urine Bacteria (Auto) 1+ /HPF (Negative) 05/04/16 10:20 Urine WBC Clumps 3+ /HPF 05/04/16 10:20 Hyaline Casts 1 /LPF 03/24/16 14:27 Urine Mucus Few /HPF 05/04/16 10:20 Urine Yeast (Budding) 1+ /HPF 05/04/16 10:20 Ur Random Creatinine See scanned report 03/31/16 12:20 U Random Total Protein See scanned report 03/31/16 12:20 Urine Creatinine 85.5 mg/dL (0.1-20.0) H 04/20/16 11:50 Protein/Creatinin Ratio See scanned report 03/31/16 12:20 Urine Sodium 17 mEq/L 04/20/16 11:50 U Abnormal Prot Band 1 See scanned report 03/31/16 12:20 U Abnormal Prot Band 2 See scanned report 03/31/16 12:20 U Abnormal Prot Band 3 See scanned report 03/31/16 12:20 Ketones 1.0 mg/dL (0.2-2.8) 03/24/16 14:00 Blood Type A POSITIVE 05/09/16 19:47 Antibody Screen Negative 05/09/16 19:47 Crossmatch See Detail 05/09/16 19:47
--- NOTE | 2016-05-15 12:45 | Progress Note ---
Assessment and Plan Acute respiratory failure. Stroke.unchanged. AMS. HTN Elevated blood sugar. Recommendations I doubt patient can tolerate SBT today. Noted with elevated respiratory rate minimal congestion. We'll suction and continue monitoring. Watch for CHF Critical care time was 31 minutes Subjective Date of service: 05/15/16 Principal diagnosis: CVA, acute respiratory failure Interval history: Intubated Objective Vital Signs - 12hr 05/15/16 05/15/16 05/15/16 01:00 01:25 01:35 Temperature Pulse Rate 90 Pulse Rate [ 89 92 H Anterior Bilateral Throughout] Pulse Rate [ Bilateral] Respiratory 25 H Rate Respiratory 17 22 Rate [Anterior Bilateral Throughout] Respiratory Rate [Bilateral ] Blood Pressure 108/67 O2 Sat by Pulse 99 Oximetry O2 Sat by Pulse Oximetry [ Assessment] 05/15/16 05/15/16 05/15/16 02:00 02:19 02:28 Temperature Pulse Rate 92 H 92 H Pulse Rate [ Anterior Bilateral Throughout] Pulse Rate [ Bilateral] Respiratory 15 22 Rate Respiratory Rate [Anterior Bilateral Throughout] Respiratory Rate [Bilateral ] Blood Pressure 110/69 108/67 O2 Sat by Pulse 100 Oximetry O2 Sat by Pulse 100 Oximetry [ Assessment] 05/15/16 05/15/16 05/15/16 03:00 04:00 05:00 Temperature 99.0 F Pulse Rate 93 H 94 H 96 H Pulse Rate [ Anterior Bilateral Throughout] Pulse Rate [ Bilateral] Respiratory 26 H 27 H 26 H Rate Respiratory Rate [Anterior Bilateral Throughout] Respiratory Rate [Bilateral ] Blood Pressure 123/77 121/80 125/83 O2 Sat by Pulse 100 100 99 Oximetry O2 Sat by Pulse Oximetry [ Assessment] 05/15/16 05/15/16 05/15/16 06:00 07:00 07:12 Temperature 99.0 F Pulse Rate 96 H 98 H Pulse Rate [ Anterior Bilateral Throughout] Pulse Rate [ Bilateral] Respiratory 23 20 Rate Respiratory Rate [Anterior Bilateral Throughout] Respiratory Rate [Bilateral ] Blood Pressure 131/82 136/85 O2 Sat by Pulse 98 100 Oximetry O2 Sat by Pulse Oximetry [ Assessment] 05/15/16 05/15/16 05/15/16 07:37 08:00 08:02 Temperature Pulse Rate 95 H 98 H 98 H Pulse Rate [ Anterior Bilateral Throughout] Pulse Rate [ 98 H Bilateral] Respiratory 15 22 27 H Rate Respiratory Rate [Anterior Bilateral Throughout] Respiratory 27 H Rate [Bilateral ] Blood Pressure 136/85 140/86 136/85 O2 Sat by Pulse 98 98 100 Oximetry O2 Sat by Pulse Oximetry [ Assessment] 05/15/16 05/15/16 05/15/16 08:15 09:00 09:02 Temperature Pulse Rate 98 H 98 H Pulse Rate [ Anterior Bilateral Throughout] Pulse Rate [ 99 H Bilateral] Respiratory 19 Rate Respiratory Rate [Anterior Bilateral Throughout] Respiratory 28 H Rate [Bilateral ] Blood Pressure 133/85 140/86 O2 Sat by Pulse 99 Oximetry O2 Sat by Pulse Oximetry [ Assessment] 05/15/16 05/15/16 05/15/16 09:03 10:00 11:00 Temperature Pulse Rate 99 H 79 78 Pulse Rate [ Anterior Bilateral Throughout] Pulse Rate [ Bilateral] Respiratory 29 H 26 H Rate Respiratory Rate [Anterior Bilateral Throughout] Respiratory Rate [Bilateral ] Blood Pressure 140/86 113/75 109/74 O2 Sat by Pulse 99 100 Oximetry O2 Sat by Pulse Oximetry [ Assessment] 05/15/16 05/15/16 12:00 12:02 Temperature 98.9 F Pulse Rate 87 Pulse Rate [ Anterior Bilateral Throughout] Pulse Rate [ Bilateral] Respiratory 24 Rate Respiratory Rate [Anterior Bilateral Throughout] Respiratory Rate [Bilateral ] Blood Pressure 117/80 O2 Sat by Pulse 100 Oximetry O2 Sat by Pulse Oximetry [ Assessment] Constitutional: no acute distress, other (opens eyes, not following commands for me) Eyes: non-icteric ENT: other (tracheotomy) Neck: supple, other (no bleeding at trach site) Effort: normal Ascultation: Bilateral: clear, rhonchi (occasional), other (coarse BS bilaterally) Percussion: Bilateral: not dull Cardiovascular: regular rate and rhythm, murmur noted Gastrointestinal: normoactive bowel sounds, soft, non-tender Extremities: no cyanosis, no edema Neurologic: other (eyes open, not following commands or moving extremities for me) Psychiatric: other (unable to assess) CBC and BMP: 05/16/16 04:13 05/16/16 04:13 ABG, PT/INR, D-dimer: ABG POC ABG pH 7.511 (7.35-7.45) H 05/06/16 05:30 POC ABG pCO2 36.2 (35-45) 05/06/16 05:30 POC ABG pO2 92 (80-105) 05/06/16 05:30 POC ABG HCO3 28.9 05/06/16 05:30 POC ABG Total CO2 30 05/06/16 05:30 POC ABG O2 Sat 98 05/06/16 05:30 PT/INR, D-dimer PT 13.8 Sec. (12.2-14.9) 05/12/16 11:01 INR 1.07 (0.87-1.13) 05/12/16 11:01 Abnormal lab findings: Abnormal Labs 03/24/16 03/24/16 03/24/16 17:58 20:25 23:23 WBC RBC Hgb Hct MCV MCH MCHC RDW Plt Count Lymph % (Auto) [place] % (Auto) Lymph # [place] # Baso # Seg Neutrophils % Seg Neuts % (Manual) Lymphocytes % (Manual) Monocytes % (Manual) Seg Neutrophils # Seg Neutrophils # Man Lymphocytes # (Manual) Monocytes # (Manual) Basophils # (Manual) Percent Retic PT INR APTT Heparin Anti-Xa Level POC ABG pH POC ABG pCO2 POC ABG pO2 Sodium 169 H* Potassium 3.5 L Chloride 130.3 H Carbon Dioxide BUN 28 H Creatinine 1.8 H Glucose POC Glucose 112 H Calcium Phosphorus Iron TIBC Lactate Dehydrogenase Total Creatine Kinase NT-Pro-B Natriuret Pep Total Protein Albumin Jdpis-7-Hjgngfrzj Pecxb-5-Ivjdihurl Beta Globulins PEP Interpretation Cholesterol 221 H LDL Cholesterol Direct 146 H Vitamin B12 Urine WBC (Auto) Urine Creatinine Crossmatch 03/25/16 03/25/16 03/25/16 05:56 05:56 05:56 WBC 21.3 H RBC 6.32 H Hgb 16.7 H Hct 52.7 H MCV 83 L MCH 27 L MCHC RDW Plt Count Lymph % (Auto) [place] % (Auto) Lymph # [place] # Baso # Seg Neutrophils % Seg Neuts % (Manual) 91.0 H Lymphocytes % (Manual) 4.0 L Monocytes % (Manual) Seg Neutrophils # Seg Neutrophils # Man 19.4 H Lymphocytes # (Manual) 0.9 L Monocytes # (Manual) 0.9 H Basophils # (Manual) Percent Retic PT INR APTT Heparin Anti-Xa Level POC ABG pH POC ABG pCO2 POC ABG pO2 Sodium 172 H* Potassium 3.5 L Chloride 130.4 H Carbon Dioxide BUN 29 H Creatinine 1.8 H Glucose 187 H POC Glucose Calcium Phosphorus Iron TIBC Lactate Dehydrogenase 460 H Total Creatine Kinase NT-Pro-B Natriuret Pep Total Protein Albumin Uccti-9-Xmaabovex Wzqis-6-Wygifzjzf Beta Globulins PEP Interpretation Cholesterol LDL Cholesterol Direct Vitamin B12 Urine WBC (Auto) Urine Creatinine Crossmatch 03/25/16 03/25/16 03/25/16 07:55 12:19 13:00 WBC RBC Hgb Hct MCV MCH MCHC RDW Plt Count Lymph % (Auto) [place] % (Auto) Lymph # [place] # Baso # Seg Neutrophils % Seg Neuts % (Manual) Lymphocytes % (Manual) Monocytes % (Manual) Seg Neutrophils # Seg Neutrophils # Man Lymphocytes # (Manual) Monocytes # (Manual) Basophils # (Manual) Percent Retic PT INR APTT Heparin Anti-Xa Level POC ABG pH POC ABG pCO2 POC ABG pO2 Sodium Potassium Chloride Carbon Dioxide BUN Creatinine Glucose POC Glucose 231 H 314 H Calcium Phosphorus Iron TIBC Lactate Dehydrogenase Total Creatine Kinase NT-Pro-B Natriuret Pep Total Protein Albumin 3.4 L Qqrzy-0-Gtpogcyhp 0.4 H Eysvt-6-Eugszbskx 1.1 H Beta Globulins 0.6 H PEP Interpretation see below H Cholesterol LDL Cholesterol Direct Vitamin B12 Urine WBC (Auto) Urine Creatinine Crossmatch 03/25/16 03/25/16 03/26/16 16:41 22:45 08:32 WBC RBC Hgb Hct MCV MCH MCHC RDW Plt Count Lymph % (Auto) [place] % (Auto) Lymph # [place] # Baso # Seg Neutrophils % Seg Neuts % (Manual) Lymphocytes % (Manual) Monocytes % (Manual) Seg Neutrophils # Seg Neutrophils # Man Lymphocytes # (Manual) Monocytes # (Manual) Basophils # (Manual) Percent Retic PT INR APTT Heparin Anti-Xa Level POC ABG pH POC ABG pCO2 POC ABG pO2 Sodium Potassium Chloride Carbon Dioxide BUN Creatinine Glucose POC Glucose 444 H 326 H 360 H Calcium Phosphorus Iron TIBC Lactate Dehydrogenase Total Creatine Kinase NT-Pro-B Natriuret Pep Total Protein Albumin Zvrce-4-Fwcjtvhno Kvdvh-6-Yiijaogah Beta Globulins PEP Interpretation Cholesterol LDL Cholesterol Direct Vitamin B12 Urine WBC (Auto) Urine Creatinine Crossmatch 03/26/16 03/26/16 03/26/16 12:38 15:33 15:47 WBC RBC Hgb Hct MCV MCH MCHC RDW Plt Count Lymph % (Auto) [place] % (Auto) Lymph # [place] # Baso # Seg Neutrophils % Seg Neuts % (Manual) Lymphocytes % (Manual) Monocytes % (Manual) Seg Neutrophils # Seg Neutrophils # Man Lymphocytes # (Manual) Monocytes # (Manual) Basophils # (Manual) Percent Retic PT INR APTT Heparin Anti-Xa Level POC ABG pH 7.511 H POC ABG pCO2 26.5 L POC ABG pO2 70 L Sodium Potassium Chloride Carbon Dioxide BUN Creatinine Glucose POC Glucose 280 H 174 H Calcium Phosphorus Iron TIBC Lactate Dehydrogenase Total Creatine Kinase NT-Pro-B Natriuret Pep Total Protein Albumin Iqlii-7-Barbjebdz Whtqa-4-Jjeiizlme Beta Globulins PEP Interpretation Cholesterol LDL Cholesterol Direct Vitamin B12 Urine WBC (Auto) Urine Creatinine Crossmatch 03/26/16 03/26/16 03/26/16 16:47 16:47 18:51 WBC 14.0 H RBC 5.17 H Hgb Hct MCV MCH 26 L MCHC 31 L RDW Plt Count 139 L Lymph % (Auto) [place] % (Auto) Lymph # [place] # Baso # Seg Neutrophils % Seg Neuts % (Manual) Lymphocytes % (Manual) Monocytes % (Manual) Seg Neutrophils # Seg Neutrophils # Man Lymphocytes # (Manual) Monocytes # (Manual) Basophils # (Manual) Percent Retic PT INR APTT Heparin Anti-Xa Level POC ABG pH POC ABG pCO2 33.9 L POC ABG pO2 150 H Sodium 164 H* Potassium 3.4 L Chloride 128.5 H Carbon Dioxide BUN 30 H Creatinine 2.2 H Glucose 121 H POC Glucose Calcium 8.1 L Phosphorus Iron TIBC Lactate Dehydrogenase Total Creatine Kinase NT-Pro-B Natriuret Pep Total Protein Albumin Ratgi-5-Oemxyvhxc Wwmxe-2-Txseyqymx Beta Globulins PEP Interpretation Cholesterol LDL Cholesterol Direct Vitamin B12 Urine WBC (Auto) Urine Creatinine Crossmatch 03/27/16 03/27/16 03/27/16 02:19 05:47 06:02 WBC RBC Hgb Hct MCV MCH MCHC RDW Plt Count Lymph % (Auto) [place] % (Auto) Lymph # [place] # Baso # Seg Neutrophils % Seg Neuts % (Manual) Lymphocytes % (Manual) Monocytes % (Manual) Seg Neutrophils # Seg Neutrophils # Man Lymphocytes # (Manual) Monocytes # (Manual) Basophils # (Manual) Percent Retic PT INR APTT Heparin Anti-Xa Level POC ABG pH POC ABG pCO2 27.3 L 30.3 L POC ABG pO2 50 L 112 H Sodium 158 H Potassium Chloride 126.7 H Carbon Dioxide 20 L BUN 25 H Creatinine 1.7 H Glucose POC Glucose Calcium 7.0 L Phosphorus Iron TIBC Lactate Dehydrogenase Total Creatine Kinase NT-Pro-B Natriuret Pep Total Protein Albumin Tkpcv-1-Tezbjuwxz Zvrpd-9-Suyqrusqy Beta Globulins PEP Interpretation Cholesterol LDL Cholesterol Direct Vitamin B12 Urine WBC (Auto) Urine Creatinine Crossmatch 03/27/16 03/27/16 03/27/16 07:51 09:20 11:45 WBC 14.2 H RBC Hgb Hct MCV 83 L MCH 27 L MCHC RDW Plt Count 113 L Lymph % (Auto) [place] % (Auto) Lymph # [place] # Baso # Seg Neutrophils % Seg Neuts % (Manual) Lymphocytes % (Manual) Monocytes % (Manual) Seg Neutrophils # Seg Neutrophils # Man Lymphocytes # (Manual) Monocytes # (Manual) Basophils # (Manual) Percent Retic PT INR APTT Heparin Anti-Xa Level POC ABG pH POC ABG pCO2 POC ABG pO2 Sodium Potassium Chloride Carbon Dioxide BUN Creatinine Glucose POC Glucose 124 H 241 H Calcium Phosphorus Iron TIBC Lactate Dehydrogenase Total Creatine Kinase NT-Pro-B Natriuret Pep Total Protein Albumin Hauat-9-Dspkxhdcn Huwvr-8-Bcwmpxhoq Beta Globulins PEP Interpretation Cholesterol LDL Cholesterol Direct Vitamin B12 Urine WBC (Auto) Urine Creatinine Crossmatch 03/27/16 03/27/16 03/28/16 16:39 22:03 03:29 WBC RBC Hgb Hct MCV MCH MCHC RDW Plt Count Lymph % (Auto) [place] % (Auto) Lymph # [place] # Baso # Seg Neutrophils % Seg Neuts % (Manual) Lymphocytes % (Manual) Monocytes % (Manual) Seg Neutrophils # Seg Neutrophils # Man Lymphocytes # (Manual) Monocytes # (Manual) Basophils # (Manual) Percent Retic PT INR APTT Heparin Anti-Xa Level POC ABG pH POC ABG pCO2 POC ABG pO2 Sodium Potassium Chloride Carbon Dioxide BUN Creatinine Glucose POC Glucose 266 H 167 H 241 H Calcium Phosphorus Iron TIBC Lactate Dehydrogenase Total Creatine Kinase NT-Pro-B Natriuret Pep Total Protein Albumin Eqiad-1-Lmwfytuar Fmzvo-5-Kgvohprgi Beta Globulins PEP Interpretation Cholesterol LDL Cholesterol Direct Vitamin B12 Urine WBC (Auto) Urine Creatinine Crossmatch 03/28/16 03/28/16 03/28/16 05:00 05:00 05:00 WBC RBC Hgb Hct MCV 83 L MCH 27 L MCHC RDW Plt Count 106 L Lymph % (Auto) [place] % (Auto) 10.1 H Lymph # [place] # 1.0 H Baso # Seg Neutrophils % 75.1 H Seg Neuts % (Manual) Lymphocytes % (Manual) Monocytes % (Manual) Seg Neutrophils # Seg Neutrophils # Man Lymphocytes # (Manual) Monocytes # (Manual) Basophils # (Manual) Percent Retic PT INR APTT Heparin Anti-Xa Level POC ABG pH POC ABG pCO2 POC ABG pO2 Sodium 147 H D Potassium 3.1 L D Chloride 112.3 H Carbon Dioxide 21 L BUN Creatinine Glucose 208 H POC Glucose Calcium 7.0 L Phosphorus 2.2 L Iron TIBC Lactate Dehydrogenase Total Creatine Kinase NT-Pro-B Natriuret Pep Total Protein Albumin Cdihl-2-Ffefiixus Hsugb-5-Ospepesxg Beta Globulins PEP Interpretation Cholesterol LDL Cholesterol Direct Vitamin B12 Urine WBC (Auto) Urine Creatinine Crossmatch 03/28/16 03/28/16 03/28/16 05:14 08:41 10:56 WBC RBC Hgb Hct MCV MCH MCHC RDW Plt Count Lymph % (Auto) [place] % (Auto) Lymph # [place] # Baso # Seg Neutrophils % Seg Neuts % (Manual) Lymphocytes % (Manual) Monocytes % (Manual) Seg Neutrophils # Seg Neutrophils # Man Lymphocytes # (Manual) Monocytes # (Manual) Basophils # (Manual) Percent Retic PT INR APTT Heparin Anti-Xa Level POC ABG pH 7.457 H POC ABG pCO2 29.7 L 27.7 L POC ABG pO2 Sodium Potassium Chloride Carbon Dioxide BUN Creatinine Glucose POC Glucose 228 H Calcium Phosphorus Iron TIBC Lactate Dehydrogenase Total Creatine Kinase NT-Pro-B Natriuret Pep Total Protein Albumin Efamr-3-Pvktwytzd Pxabm-4-Ncemnxfkd Beta Globulins PEP Interpretation Cholesterol LDL Cholesterol Direct Vitamin B12 Urine WBC (Auto) Urine Creatinine Crossmatch 03/28/16 03/28/16 03/28/16 11:37 13:29 16:22 WBC RBC Hgb Hct MCV MCH MCHC RDW Plt Count Lymph % (Auto) [place] % (Auto) Lymph # [place] # Baso # Seg Neutrophils % Seg Neuts % (Manual) Lymphocytes % (Manual) Monocytes % (Manual) Seg Neutrophils # Seg Neutrophils # Man Lymphocytes # (Manual) Monocytes # (Manual) Basophils # (Manual) Percent Retic PT INR APTT Heparin Anti-Xa Level POC ABG pH POC ABG pCO2 POC ABG pO2 Sodium Potassium Chloride Carbon Dioxide BUN Creatinine Glucose POC Glucose 226 H 200 H Calcium Phosphorus Iron TIBC Lactate Dehydrogenase Total Creatine Kinase 356 H NT-Pro-B Natriuret Pep Total Protein Albumin Lthbo-5-Oakoikxfm Xfmte-2-Zwilmcdhu Beta Globulins PEP Interpretation Cholesterol LDL Cholesterol Direct Vitamin B12 Urine WBC (Auto) Urine Creatinine Crossmatch 03/28/16 03/29/16 03/29/16 21:48 04:50 04:50 WBC RBC Hgb 11.5 L Hct 35.3 L MCV 81 L MCH 26 L MCHC RDW Plt Count 97 L Lymph % (Auto) [place] % (Auto) 11.7 H Lymph # [place] # 1.1 H Baso # Seg Neutrophils % Seg Neuts % (Manual) Lymphocytes % (Manual) Monocytes % (Manual) Seg Neutrophils # Seg Neutrophils # Man Lymphocytes # (Manual) Monocytes # (Manual) Basophils # (Manual) Percent Retic PT INR APTT Heparin Anti-Xa Level POC ABG pH POC ABG pCO2 POC ABG pO2 Sodium 136 L D Potassium 3.3 L Chloride Carbon Dioxide 20 L BUN Creatinine Glucose 386 H POC Glucose 188 H Calcium 6.8 L Phosphorus 1.6 L D Iron TIBC Lactate Dehydrogenase Total Creatine Kinase NT-Pro-B Natriuret Pep Total Protein Albumin Mxwmh-4-Szsgndpgq Lmrme-8-Ucnlswbyh Beta Globulins PEP Interpretation Cholesterol LDL Cholesterol Direct Vitamin B12 Urine WBC (Auto) Urine Creatinine Crossmatch 03/29/16 03/29/16 03/29/16 08:10 11:12 16:09 WBC RBC Hgb Hct MCV MCH MCHC RDW Plt Count Lymph % (Auto) [place] % (Auto) Lymph # [place] # Baso # Seg Neutrophils % Seg Neuts % (Manual) Lymphocytes % (Manual) Monocytes % (Manual) Seg Neutrophils # Seg Neutrophils # Man Lymphocytes # (Manual) Monocytes # (Manual) Basophils # (Manual) Percent Retic PT INR APTT Heparin Anti-Xa Level POC ABG pH POC ABG pCO2 POC ABG pO2 Sodium Potassium Chloride Carbon Dioxide BUN Creatinine Glucose POC Glucose 230 H 180 H 46 L Calcium Phosphorus Iron TIBC Lactate Dehydrogenase Total Creatine Kinase NT-Pro-B Natriuret Pep Total Protein Albumin Zujhw-1-Eubdjtccp Ejbij-3-Czsrierrg Beta Globulins PEP Interpretation Cholesterol LDL Cholesterol Direct Vitamin B12 Urine WBC (Auto) Urine Creatinine Crossmatch 03/29/16 03/29/16 03/30/16 16:12 18:15 02:53 WBC RBC Hgb Hct MCV MCH MCHC RDW Plt Count Lymph % (Auto) [place] % (Auto) Lymph # [place] # Baso # Seg Neutrophils % Seg Neuts % (Manual) Lymphocytes % (Manual) Monocytes % (Manual) Seg Neutrophils # Seg Neutrophils # Man Lymphocytes # (Manual) Monocytes # (Manual) Basophils # (Manual) Percent Retic PT INR APTT Heparin Anti-Xa Level POC ABG pH POC ABG pCO2 POC ABG pO2 Sodium Potassium Chloride Carbon Dioxide BUN Creatinine Glucose POC Glucose 52 L 118 H 130 H Calcium Phosphorus Iron TIBC Lactate Dehydrogenase Total Creatine Kinase NT-Pro-B Natriuret Pep Total Protein Albumin Gpcro-0-Esjqwabxi Phwzl-6-Crxrljdcv Beta Globulins PEP Interpretation Cholesterol LDL Cholesterol Direct Vitamin B12 Urine WBC (Auto) Urine Creatinine Crossmatch 03/30/16 03/30/16 03/30/16 04:00 04:00 05:29 WBC RBC Hgb Hct MCV 81 L MCH 26 L MCHC RDW Plt Count 116 L Lymph % (Auto) 10.8 L [place] % (Auto) 13.1 H Lymph # 1.0 L [place] # 1.3 H Baso # Seg Neutrophils % 74.2 H Seg Neuts % (Manual) Lymphocytes % (Manual) Monocytes % (Manual) Seg Neutrophils # Seg Neutrophils # Man Lymphocytes # (Manual) Monocytes # (Manual) Basophils # (Manual) Percent Retic PT INR APTT Heparin Anti-Xa Level POC ABG pH 7.522 H POC ABG pCO2 22.7 L POC ABG pO2 137 H Sodium 147 H D Potassium Chloride 115.5 H Carbon Dioxide 20 L BUN Creatinine Glucose 116 H POC Glucose Calcium 7.6 L Phosphorus 2.3 L D Iron TIBC Lactate Dehydrogenase Total Creatine Kinase NT-Pro-B Natriuret Pep Total Protein Albumin Vrcnu-1-Sktvwntub Zodsn-7-Yxczessyi Beta Globulins PEP Interpretation Cholesterol LDL Cholesterol Direct Vitamin B12 Urine WBC (Auto) Urine Creatinine Crossmatch 03/30/16 03/30/16 03/30/16 05:47 08:05 08:59 WBC RBC Hgb Hct MCV MCH MCHC RDW Plt Count Lymph % (Auto) [place] % (Auto) Lymph # [place] # Baso # Seg Neutrophils % Seg Neuts % (Manual) Lymphocytes % (Manual) Monocytes % (Manual) Seg Neutrophils # Seg Neutrophils # Man Lymphocytes # (Manual) Monocytes # (Manual) Basophils # (Manual) Percent Retic PT INR APTT Heparin Anti-Xa Level POC ABG pH POC ABG pCO2 26.2 L POC ABG pO2 115 H Sodium Potassium Chloride Carbon Dioxide BUN Creatinine Glucose POC Glucose 138 H 171 H Calcium Phosphorus Iron TIBC Lactate Dehydrogenase Total Creatine Kinase NT-Pro-B Natriuret Pep Total Protein Albumin Sszsr-9-Gbbmepjae Zogca-3-Gvcrknovi Beta Globulins PEP Interpretation Cholesterol LDL Cholesterol Direct Vitamin B12 Urine WBC (Auto) Urine Creatinine Crossmatch 03/30/16 03/30/16 03/30/16 12:11 12:11 16:39 WBC RBC Hgb Hct MCV MCH MCHC RDW Plt Count Lymph % (Auto) [place] % (Auto) Lymph # [place] # Baso # Seg Neutrophils % Seg Neuts % (Manual) Lymphocytes % (Manual) Monocytes % (Manual) Seg Neutrophils # Seg Neutrophils # Man Lymphocytes # (Manual) Monocytes # (Manual) Basophils # (Manual) Percent Retic PT INR APTT Heparin Anti-Xa Level POC ABG pH 7.476 H POC ABG pCO2 29.0 L POC ABG pO2 Sodium Potassium Chloride Carbon Dioxide BUN Creatinine Glucose POC Glucose 142 H 59 L Calcium Phosphorus Iron TIBC Lactate Dehydrogenase Total Creatine Kinase NT-Pro-B Natriuret Pep Total Protein Albumin Jllav-8-Myfatrcgq Zczoo-9-Qibvzcscm Beta Globulins PEP Interpretation Cholesterol LDL Cholesterol Direct Vitamin B12 Urine WBC (Auto) Urine Creatinine Crossmatch 03/30/16 03/30/16 03/31/16 18:41 21:59 05:02 WBC RBC Hgb Hct MCV MCH MCHC RDW Plt Count Lymph % (Auto) [place] % (Auto) Lymph # [place] # Baso # Seg Neutrophils % Seg Neuts % (Manual) Lymphocytes % (Manual) Monocytes % (Manual) Seg Neutrophils # Seg Neutrophils # Man Lymphocytes # (Manual) Monocytes # (Manual) Basophils # (Manual) Percent Retic PT INR APTT Heparin Anti-Xa Level POC ABG pH 7.519 H POC ABG pCO2 21.8 L POC ABG pO2 142 H Sodium Potassium Chloride Carbon Dioxide BUN Creatinine Glucose POC Glucose 145 H 154 H Calcium Phosphorus Iron TIBC Lactate Dehydrogenase Total Creatine Kinase NT-Pro-B Natriuret Pep Total Protein Albumin Shzek-8-Eirdoyfwm Btrlo-4-Dwqsffnck Beta Globulins PEP Interpretation Cholesterol LDL Cholesterol Direct Vitamin B12 Urine WBC (Auto) Urine Creatinine Crossmatch 03/31/16 03/31/16 03/31/16 05:15 05:15 05:15 WBC 13.4 H RBC 5.21 H Hgb Hct MCV 81 L MCH 26 L MCHC RDW Plt Count Lymph % (Auto) 9.5 L [place] % (Auto) 14.0 H Lymph # [place] # 1.9 H Baso # Seg Neutrophils % 75.0 H Seg Neuts % (Manual) Lymphocytes % (Manual) Monocytes % (Manual) Seg Neutrophils # 10.1 H Seg Neutrophils # Man Lymphocytes # (Manual) Monocytes # (Manual) Basophils # (Manual) Percent Retic PT INR APTT Heparin Anti-Xa Level POC ABG pH POC ABG pCO2 POC ABG pO2 Sodium Potassium Chloride 108.5 H Carbon Dioxide 19 L BUN Creatinine Glucose 188 H POC Glucose Calcium Phosphorus Iron TIBC Lactate Dehydrogenase Total Creatine Kinase NT-Pro-B Natriuret Pep 1089 H Total Protein Albumin Gwbun-5-Eotmpnoqt Tqztv-6-Qlahvejou Beta Globulins PEP Interpretation Cholesterol LDL Cholesterol Direct Vitamin B12 Urine WBC (Auto) Urine Creatinine Crossmatch 03/31/16 03/31/16 03/31/16 07:23 11:12 15:20 WBC RBC Hgb Hct MCV MCH MCHC RDW Plt Count Lymph % (Auto) [place] % (Auto) Lymph # [place] # Baso # Seg Neutrophils % Seg Neuts % (Manual) Lymphocytes % (Manual) Monocytes % (Manual) Seg Neutrophils # Seg Neutrophils # Man Lymphocytes # (Manual) Monocytes # (Manual) Basophils # (Manual) Percent Retic PT INR APTT Heparin Anti-Xa Level POC ABG pH POC ABG pCO2 POC ABG pO2 Sodium Potassium Chloride Carbon Dioxide BUN Creatinine Glucose POC Glucose 233 H 228 H 208 H Calcium Phosphorus Iron TIBC Lactate Dehydrogenase Total Creatine Kinase NT-Pro-B Natriuret Pep Total Protein Albumin Ytkmf-8-Xuiycjmam Mnvdg-5-Ohachlyvs Beta Globulins PEP Interpretation Cholesterol LDL Cholesterol Direct Vitamin B12 Urine WBC (Auto) Urine Creatinine Crossmatch 03/31/16 04/01/16 04/01/16 21:27 04:41 05:35 WBC 12.1 H RBC Hgb Hct MCV 81 L MCH 26 L MCHC RDW Plt Count Lymph % (Auto) 8.5 L [place] % (Auto) 14.0 H Lymph # 1.0 L [place] # 1.7 H Baso # Seg Neutrophils % 76.2 H Seg Neuts % (Manual) Lymphocytes % (Manual) Monocytes % (Manual) Seg Neutrophils # 9.2 H Seg Neutrophils # Man Lymphocytes # (Manual) Monocytes # (Manual) Basophils # (Manual) Percent Retic PT INR APTT Heparin Anti-Xa Level POC ABG pH 7.455 H POC ABG pCO2 31.0 L POC ABG pO2 Sodium Potassium Chloride Carbon Dioxide BUN Creatinine Glucose POC Glucose 162 H Calcium Phosphorus Iron TIBC Lactate Dehydrogenase Total Creatine Kinase NT-Pro-B Natriuret Pep Total Protein Albumin Irsws-0-Bujhbduvb Qidom-9-Xshxwamrl Beta Globulins PEP Interpretation Cholesterol LDL Cholesterol Direct Vitamin B12 Urine WBC (Auto) Urine Creatinine Crossmatch 04/01/16 04/01/16 04/01/16 05:35 08:44 12:49 WBC RBC Hgb Hct MCV MCH MCHC RDW Plt Count Lymph % (Auto) [place] % (Auto) Lymph # [place] # Baso # Seg Neutrophils % Seg Neuts % (Manual) Lymphocytes % (Manual) Monocytes % (Manual) Seg Neutrophils # Seg Neutrophils # Man Lymphocytes # (Manual) Monocytes # (Manual) Basophils # (Manual) Percent Retic PT INR APTT Heparin Anti-Xa Level POC ABG pH POC ABG pCO2 POC ABG pO2 Sodium Potassium Chloride Carbon Dioxide BUN Creatinine Glucose 256 H POC Glucose 257 H 279 H Calcium 8.0 L Phosphorus Iron TIBC Lactate Dehydrogenase Total Creatine Kinase NT-Pro-B Natriuret Pep 1205 H Total Protein Albumin Vmryc-8-Vvfdbntqb Ownre-1-Grmnipdfr Beta Globulins PEP Interpretation Cholesterol LDL Cholesterol Direct Vitamin B12 Urine WBC (Auto) Urine Creatinine Crossmatch 04/01/16 04/02/16 04/02/16 18:12 00:42 04:17 WBC RBC Hgb Hct MCV MCH MCHC RDW Plt Count Lymph % (Auto) [place] % (Auto) Lymph # [place] # Baso # Seg Neutrophils % Seg Neuts % (Manual) Lymphocytes % (Manual) Monocytes % (Manual) Seg Neutrophils # Seg Neutrophils # Man Lymphocytes # (Manual) Monocytes # (Manual) Basophils # (Manual) Percent Retic PT INR APTT Heparin Anti-Xa Level POC ABG pH 7.582 H POC ABG pCO2 26.8 L POC ABG pO2 Sodium Potassium Chloride Carbon Dioxide BUN Creatinine Glucose POC Glucose 168 H 282 H Calcium Phosphorus Iron TIBC Lactate Dehydrogenase Total Creatine Kinase NT-Pro-B Natriuret Pep Total Protein Albumin Siyqh-7-Owmcqteuj Oyanw-5-Gyzwufxev Beta Globulins PEP Interpretation Cholesterol LDL Cholesterol Direct Vitamin B12 Urine WBC (Auto) Urine Creatinine Crossmatch 04/02/16 04/02/16 04/02/16 05:00 05:00 06:27 WBC 12.4 H RBC Hgb Hct MCV 81 L MCH 26 L MCHC RDW Plt Count Lymph % (Auto) 6.4 L [place] % (Auto) 13.3 H Lymph # 0.8 L [place] # 1.7 H Baso # Seg Neutrophils % 79.4 H Seg Neuts % (Manual) Lymphocytes % (Manual) Monocytes % (Manual) Seg Neutrophils # 9.9 H Seg Neutrophils # Man Lymphocytes # (Manual) Monocytes # (Manual) Basophils # (Manual) Percent Retic PT INR APTT Heparin Anti-Xa Level POC ABG pH POC ABG pCO2 POC ABG pO2 Sodium 146 H Potassium Chloride Carbon Dioxide BUN Creatinine Glucose 334 H POC Glucose 317 H Calcium 8.0 L Phosphorus Iron TIBC Lactate Dehydrogenase Total Creatine Kinase NT-Pro-B Natriuret Pep Total Protein Albumin Etjxn-7-Nawyigehd Psmno-1-Dtuhsplij Beta Globulins PEP Interpretation Cholesterol LDL Cholesterol Direct Vitamin B12 Urine WBC (Auto) Urine Creatinine Crossmatch 04/02/16 04/02/16 04/02/16 11:51 13:10 17:24 WBC RBC Hgb Hct MCV MCH MCHC RDW Plt Count Lymph % (Auto) [place] % (Auto) Lymph # [place] # Baso # Seg Neutrophils % Seg Neuts % (Manual) Lymphocytes % (Manual) Monocytes % (Manual) Seg Neutrophils # Seg Neutrophils # Man Lymphocytes # (Manual) Monocytes # (Manual) Basophils # (Manual) Percent Retic PT INR APTT Heparin Anti-Xa Level POC ABG pH 7.518 H POC ABG pCO2 POC ABG pO2 Sodium Potassium Chloride Carbon Dioxide BUN Creatinine Glucose POC Glucose 278 H 195 H Calcium Phosphorus Iron TIBC Lactate Dehydrogenase Total Creatine Kinase NT-Pro-B Natriuret Pep Total Protein Albumin Mfjdz-9-Sbrrklvtu Jciky-9-Cwwmamdpz Beta Globulins PEP Interpretation Cholesterol LDL Cholesterol Direct Vitamin B12 Urine WBC (Auto) Urine Creatinine Crossmatch 04/03/16 04/03/16 04/03/16 00:18 04:10 04:10 WBC 14.3 H RBC Hgb Hct MCV 81 L MCH 26 L MCHC RDW Plt Count Lymph % (Auto) 9.0 L [place] % (Auto) 10.7 H Lymph # [place] # 1.5 H Baso # 0.2 H Seg Neutrophils % 78.5 H Seg Neuts % (Manual) Lymphocytes % (Manual) Monocytes % (Manual) Seg Neutrophils # 11.3 H Seg Neutrophils # Man Lymphocytes # (Manual) Monocytes # (Manual) Basophils # (Manual) Percent Retic PT INR APTT Heparin Anti-Xa Level POC ABG pH POC ABG pCO2 POC ABG pO2 Sodium 148 H Potassium Chloride 108.1 H Carbon Dioxide BUN 21 H Creatinine Glucose 227 H POC Glucose 144 H Calcium 8.2 L Phosphorus Iron TIBC Lactate Dehydrogenase Total Creatine Kinase NT-Pro-B Natriuret Pep Total Protein Albumin Eoand-9-Mgtncpjyo Zokdi-2-Ojelpjgzz Beta Globulins PEP Interpretation Cholesterol LDL Cholesterol Direct Vitamin B12 Urine WBC (Auto) Urine Creatinine Crossmatch 04/03/16 04/03/16 04/04/16 11:14 17:10 04:00 WBC 14.5 H RBC Hgb Hct MCV 81 L MCH 26 L MCHC RDW Plt Count Lymph % (Auto) 7.2 L [place] % (Auto) 7.6 H Lymph # 1.0 L [place] # 1.1 H Baso # Seg Neutrophils % 84.5 H Seg Neuts % (Manual) Lymphocytes % (Manual) Monocytes % (Manual) Seg Neutrophils # 12.3 H Seg Neutrophils # Man Lymphocytes # (Manual) Monocytes # (Manual) Basophils # (Manual) Percent Retic PT INR APTT Heparin Anti-Xa Level POC ABG pH POC ABG pCO2 POC ABG pO2 Sodium Potassium Chloride Carbon Dioxide BUN Creatinine Glucose POC Glucose 267 H 212 H Calcium Phosphorus Iron TIBC Lactate Dehydrogenase Total Creatine Kinase NT-Pro-B Natriuret Pep Total Protein Albumin Kokxx-6-Mkffcjaqh Srjop-0-Yjrleexmt Beta Globulins PEP Interpretation Cholesterol LDL Cholesterol Direct Vitamin B12 Urine WBC (Auto) Urine Creatinine Crossmatch 04/04/16 04/04/16 04/04/16 05:00 09:55 09:55 WBC RBC Hgb 11.5 L Hct MCV MCH MCHC RDW Plt Count Lymph % (Auto) [place] % (Auto) Lymph # [place] # Baso # Seg Neutrophils % Seg Neuts % (Manual) Lymphocytes % (Manual) Monocytes % (Manual) Seg Neutrophils # Seg Neutrophils # Man Lymphocytes # (Manual) Monocytes # (Manual) Basophils # (Manual) Percent Retic PT INR APTT 42.1 H Heparin Anti-Xa Level POC ABG pH POC ABG pCO2 POC ABG pO2 Sodium 146 H Potassium Chloride Carbon Dioxide BUN 22 H Creatinine Glucose 128 H POC Glucose Calcium Phosphorus Iron TIBC Lactate Dehydrogenase Total Creatine Kinase NT-Pro-B Natriuret Pep Total Protein Albumin Neybg-8-Hhsjonoqi Cnlhu-3-Gamwmlqwn Beta Globulins PEP Interpretation Cholesterol LDL Cholesterol Direct Vitamin B12 Urine WBC (Auto) Urine Creatinine Crossmatch 04/04/16 04/04/16 04/04/16 11:45 17:49 17:55 WBC RBC Hgb Hct MCV MCH MCHC RDW Plt Count Lymph % (Auto) [place] % (Auto) Lymph # [place] # Baso # Seg Neutrophils % Seg Neuts % (Manual) Lymphocytes % (Manual) Monocytes % (Manual) Seg Neutrophils # Seg Neutrophils # Man Lymphocytes # (Manual) Monocytes # (Manual) Basophils # (Manual) Percent Retic PT INR APTT Heparin Anti-Xa Level 1.19 H POC ABG pH POC ABG pCO2 POC ABG pO2 Sodium Potassium Chloride Carbon Dioxide BUN Creatinine Glucose POC Glucose 231 H 186 H Calcium Phosphorus Iron TIBC Lactate Dehydrogenase Total Creatine Kinase NT-Pro-B Natriuret Pep Total Protein Albumin Stqmm-6-Rterecbsq Melnr-7-Vgsjzoxya Beta Globulins PEP Interpretation Cholesterol LDL Cholesterol Direct Vitamin B12 Urine WBC (Auto) Urine Creatinine Crossmatch 04/05/16 04/05/16 04/05/16 00:35 05:32 05:42 WBC RBC Hgb Hct MCV MCH MCHC RDW Plt Count Lymph % (Auto) [place] % (Auto) Lymph # [place] # Baso # Seg Neutrophils % Seg Neuts % (Manual) Lymphocytes % (Manual) Monocytes % (Manual) Seg Neutrophils # Seg Neutrophils # Man Lymphocytes # (Manual) Monocytes # (Manual) Basophils # (Manual) Percent Retic PT INR APTT Heparin Anti-Xa Level POC ABG pH 7.491 H POC ABG pCO2 POC ABG pO2 Sodium Potassium Chloride Carbon Dioxide BUN Creatinine Glucose POC Glucose 192 H 242 H Calcium Phosphorus Iron TIBC Lactate Dehydrogenase Total Creatine Kinase NT-Pro-B Natriuret Pep Total Protein Albumin Ecpzr-4-Rcyxzgmpy Ziuqo-0-Nkjypdvmi Beta Globulins PEP Interpretation Cholesterol LDL Cholesterol Direct Vitamin B12 Urine WBC (Auto) Urine Creatinine Crossmatch 04/05/16 04/05/16 04/05/16 06:20 06:20 12:19 WBC 13.9 H RBC Hgb 11.6 L Hct MCV 81 L MCH 26 L MCHC RDW Plt Count Lymph % (Auto) 9.6 L [place] % (Auto) 8.7 H Lymph # [place] # 1.2 H Baso # Seg Neutrophils % 80.9 H Seg Neuts % (Manual) Lymphocytes % (Manual) Monocytes % (Manual) Seg Neutrophils # 11.3 H Seg Neutrophils # Man Lymphocytes # (Manual) Monocytes # (Manual) Basophils # (Manual) Percent Retic PT INR APTT Heparin Anti-Xa Level POC ABG pH POC ABG pCO2 POC ABG pO2 Sodium 148 H Potassium Chloride Carbon Dioxide BUN 23 H Creatinine Glucose 242 H POC Glucose 187 H Calcium Phosphorus Iron TIBC Lactate Dehydrogenase Total Creatine Kinase NT-Pro-B Natriuret Pep Total Protein Albumin Rkqne-0-Oowpijlcy Cxpbx-6-Htayympez Beta Globulins PEP Interpretation Cholesterol LDL Cholesterol Direct Vitamin B12 Urine WBC (Auto) Urine Creatinine Crossmatch 04/05/16 04/05/16 04/06/16 17:10 23:45 05:23 WBC 13.0 H RBC Hgb Hct MCV 82 L MCH 26 L MCHC 31 L RDW Plt Count Lymph % (Auto) 6.7 L [place] % (Auto) 8.3 H Lymph # 0.9 L [place] # 1.1 H Baso # Seg Neutrophils % 84.6 H Seg Neuts % (Manual) Lymphocytes % (Manual) Monocytes % (Manual) Seg Neutrophils # 11.0 H Seg Neutrophils # Man Lymphocytes # (Manual) Monocytes # (Manual) Basophils # (Manual) Percent Retic PT INR APTT Heparin Anti-Xa Level POC ABG pH POC ABG pCO2 POC ABG pO2 Sodium Potassium Chloride Carbon Dioxide BUN Creatinine Glucose POC Glucose 169 H 202 H Calcium Phosphorus Iron TIBC Lactate Dehydrogenase Total Creatine Kinase NT-Pro-B Natriuret Pep Total Protein Albumin Gqkxw-1-Etbcchjxt Ftkhr-7-Ynnaxzcbt Beta Globulins PEP Interpretation Cholesterol LDL Cholesterol Direct Vitamin B12 Urine WBC (Auto) Urine Creatinine Crossmatch 04/06/16 04/06/16 04/06/16 05:23 05:23 06:11 WBC RBC Hgb Hct MCV MCH MCHC RDW Plt Count Lymph % (Auto) [place] % (Auto) Lymph # [place] # Baso # Seg Neutrophils % Seg Neuts % (Manual) Lymphocytes % (Manual) Monocytes % (Manual) Seg Neutrophils # Seg Neutrophils # Man Lymphocytes # (Manual) Monocytes # (Manual) Basophils # (Manual) Percent Retic PT INR APTT Heparin Anti-Xa Level 0.21 L POC ABG pH POC ABG pCO2 POC ABG pO2 Sodium 153 H Potassium Chloride 111.3 H Carbon Dioxide BUN 22 H Creatinine Glucose 62 L POC Glucose 56 L Calcium Phosphorus Iron TIBC Lactate Dehydrogenase Total Creatine Kinase NT-Pro-B Natriuret Pep Total Protein Albumin Vximd-1-Ycermlnzu Dkfxo-5-Oeustqhxw Beta Globulins PEP Interpretation Cholesterol LDL Cholesterol Direct Vitamin B12 Urine WBC (Auto) Urine Creatinine Crossmatch 04/06/16 04/06/16 04/06/16 06:52 11:36 14:58 WBC RBC Hgb Hct MCV MCH MCHC RDW Plt Count Lymph % (Auto) [place] % (Auto) Lymph # [place] # Baso # Seg Neutrophils % Seg Neuts % (Manual) Lymphocytes % (Manual) Monocytes % (Manual) Seg Neutrophils # Seg Neutrophils # Man Lymphocytes # (Manual) Monocytes # (Manual) Basophils # (Manual) Percent Retic PT INR APTT Heparin Anti-Xa Level POC ABG pH POC ABG pCO2 POC ABG pO2 Sodium Potassium Chloride Carbon Dioxide BUN Creatinine Glucose POC Glucose 206 H 139 H 147 H Calcium Phosphorus Iron TIBC Lactate Dehydrogenase Total Creatine Kinase NT-Pro-B Natriuret Pep Total Protein Albumin Jnnju-9-Hsmzqawyj Tkbwg-9-Lixfwjhsb Beta Globulins PEP Interpretation Cholesterol LDL Cholesterol Direct Vitamin B12 Urine WBC (Auto) Urine Creatinine Crossmatch 04/06/16 04/06/16 04/06/16 16:03 21:18 23:53 WBC RBC Hgb Hct MCV MCH MCHC RDW Plt Count Lymph % (Auto) [place] % (Auto) Lymph # [place] # Baso # Seg Neutrophils % Seg Neuts % (Manual) Lymphocytes % (Manual) Monocytes % (Manual) Seg Neutrophils # Seg Neutrophils # Man Lymphocytes # (Manual) Monocytes # (Manual) Basophils # (Manual) Percent Retic PT INR APTT Heparin Anti-Xa Level POC ABG pH POC ABG pCO2 POC ABG pO2 Sodium Potassium Chloride Carbon Dioxide BUN Creatinine Glucose POC Glucose 154 H 293 H 301 H Calcium Phosphorus Iron TIBC Lactate Dehydrogenase Total Creatine Kinase NT-Pro-B Natriuret Pep Total Protein Albumin Cwpfw-4-Idttzfhkg Goxzr-6-Pmvwxosdg Beta Globulins PEP Interpretation Cholesterol LDL Cholesterol Direct Vitamin B12 Urine WBC (Auto) Urine Creatinine Crossmatch 04/07/16 04/07/16 04/07/16 02:30 05:11 05:11 WBC 12.5 H RBC Hgb 11.5 L Hct MCV 82 L MCH 26 L MCHC 31 L RDW Plt Count Lymph % (Auto) [place] % (Auto) Lymph # [place] # Baso # Seg Neutrophils % Seg Neuts % (Manual) Lymphocytes % (Manual) Monocytes % (Manual) Seg Neutrophils # Seg Neutrophils # Man Lymphocytes # (Manual) Monocytes # (Manual) Basophils # (Manual) Percent Retic PT INR APTT Heparin Anti-Xa Level 0.11 L POC ABG pH POC ABG pCO2 POC ABG pO2 Sodium 150 H Potassium Chloride 109.5 H Carbon Dioxide BUN 28 H Creatinine Glucose 264 H POC Glucose Calcium Phosphorus Iron TIBC Lactate Dehydrogenase Total Creatine Kinase NT-Pro-B Natriuret Pep Total Protein Albumin Hwgqh-6-Ibwnmgnit Awcdz-0-Vggngsurl Beta Globulins PEP Interpretation Cholesterol LDL Cholesterol Direct Vitamin B12 Urine WBC (Auto) Urine Creatinine Crossmatch 04/07/16 04/07/16 04/07/16 06:46 10:18 11:50 WBC RBC Hgb Hct MCV MCH MCHC RDW Plt Count Lymph % (Auto) [place] % (Auto) Lymph # [place] # Baso # Seg Neutrophils % Seg Neuts % (Manual) Lymphocytes % (Manual) Monocytes % (Manual) Seg Neutrophils # Seg Neutrophils # Man Lymphocytes # (Manual) Monocytes # (Manual) Basophils # (Manual) Percent Retic PT 15.1 H INR 1.20 H APTT Heparin Anti-Xa Level POC ABG pH POC ABG pCO2 POC ABG pO2 Sodium Potassium Chloride Carbon Dioxide BUN Creatinine Glucose POC Glucose 259 H 288 H Calcium Phosphorus Iron TIBC Lactate Dehydrogenase Total Creatine Kinase NT-Pro-B Natriuret Pep Total Protein Albumin Sppzd-4-Fnqjcfixn Brxma-5-Oxcezhsmi Beta Globulins PEP Interpretation Cholesterol LDL Cholesterol Direct Vitamin B12 Urine WBC (Auto) Urine Creatinine Crossmatch 04/07/16 04/08/16 04/08/16 17:58 01:25 06:49 WBC RBC Hgb Hct MCV MCH MCHC RDW Plt Count Lymph % (Auto) [place] % (Auto) Lymph # [place] # Baso # Seg Neutrophils % Seg Neuts % (Manual) Lymphocytes % (Manual) Monocytes % (Manual) Seg Neutrophils # Seg Neutrophils # Man Lymphocytes # (Manual) Monocytes # (Manual) Basophils # (Manual) Percent Retic PT INR APTT Heparin Anti-Xa Level POC ABG pH POC ABG pCO2 POC ABG pO2 Sodium 156 H Potassium Chloride 114.7 H Carbon Dioxide BUN 33 H Creatinine Glucose 169 H POC Glucose 330 H 146 H Calcium Phosphorus Iron TIBC Lactate Dehydrogenase Total Creatine Kinase NT-Pro-B Natriuret Pep Total Protein Albumin Nylwk-2-Eyfnwkely Jxpuc-3-Zslbxyagv Beta Globulins PEP Interpretation Cholesterol LDL Cholesterol Direct Vitamin B12 Urine WBC (Auto) Urine Creatinine Crossmatch 04/08/16 04/08/16 04/08/16 07:34 10:28 10:28 WBC RBC Hgb Hct MCV MCH MCHC RDW Plt Count Lymph % (Auto) [place] % (Auto) Lymph # [place] # Baso # Seg Neutrophils % Seg Neuts % (Manual) Lymphocytes % (Manual) Monocytes % (Manual) Seg Neutrophils # Seg Neutrophils # Man Lymphocytes # (Manual) Monocytes # (Manual) Basophils # (Manual) Percent Retic PT 15.5 H INR 1.24 H APTT Heparin Anti-Xa Level 0.24 L POC ABG pH POC ABG pCO2 POC ABG pO2 Sodium Potassium Chloride Carbon Dioxide BUN Creatinine Glucose POC Glucose 232 H Calcium Phosphorus Iron TIBC Lactate Dehydrogenase Total Creatine Kinase NT-Pro-B Natriuret Pep Total Protein Albumin Dgtwg-5-Iyhyncjqn Wjial-1-Xuckejydf Beta Globulins PEP Interpretation Cholesterol LDL Cholesterol Direct Vitamin B12 Urine WBC (Auto) Urine Creatinine Crossmatch 04/08/16 04/08/16 04/09/16 11:36 15:38 00:01 WBC RBC Hgb Hct MCV MCH MCHC RDW Plt Count Lymph % (Auto) [place] % (Auto) Lymph # [place] # Baso # Seg Neutrophils % Seg Neuts % (Manual) Lymphocytes % (Manual) Monocytes % (Manual) Seg Neutrophils # Seg Neutrophils # Man Lymphocytes # (Manual) Monocytes # (Manual) Basophils # (Manual) Percent Retic PT INR APTT Heparin Anti-Xa Level POC ABG pH POC ABG pCO2 POC ABG pO2 Sodium Potassium Chloride Carbon Dioxide BUN Creatinine Glucose POC Glucose 193 H 163 H 180 H Calcium Phosphorus Iron TIBC Lactate Dehydrogenase Total Creatine Kinase NT-Pro-B Natriuret Pep Total Protein Albumin Ojtvh-1-Nnkmtxmrg Qpnrz-3-Rzanbvsls Beta Globulins PEP Interpretation Cholesterol LDL Cholesterol Direct Vitamin B12 Urine WBC (Auto) Urine Creatinine Crossmatch 04/09/16 04/09/16 04/09/16 06:17 06:42 06:42 WBC RBC Hgb Hct MCV MCH MCHC RDW Plt Count Lymph % (Auto) [place] % (Auto) Lymph # [place] # Baso # Seg Neutrophils % Seg Neuts % (Manual) Lymphocytes % (Manual) Monocytes % (Manual) Seg Neutrophils # Seg Neutrophils # Man Lymphocytes # (Manual) Monocytes # (Manual) Basophils # (Manual) Percent Retic PT 17.4 H INR 1.43 H APTT Heparin Anti-Xa Level POC ABG pH POC ABG pCO2 POC ABG pO2 Sodium 153 H Potassium Chloride 113.2 H Carbon Dioxide BUN 29 H Creatinine Glucose 301 H POC Glucose 249 H Calcium 8.3 L Phosphorus Iron TIBC Lactate Dehydrogenase Total Creatine Kinase NT-Pro-B Natriuret Pep Total Protein Albumin Shgmt-9-Lfqcfbkxk Hpjzt-5-Lqbmjvoto Beta Globulins PEP Interpretation Cholesterol LDL Cholesterol Direct Vitamin B12 Urine WBC (Auto) Urine Creatinine Crossmatch 04/09/16 04/09/16 04/09/16 07:37 11:26 15:45 WBC RBC Hgb Hct MCV MCH MCHC RDW Plt Count Lymph % (Auto) [place] % (Auto) Lymph # [place] # Baso # Seg Neutrophils % Seg Neuts % (Manual) Lymphocytes % (Manual) Monocytes % (Manual) Seg Neutrophils # Seg Neutrophils # Man Lymphocytes # (Manual) Monocytes # (Manual) Basophils # (Manual) Percent Retic PT INR APTT Heparin Anti-Xa Level POC ABG pH POC ABG pCO2 POC ABG pO2 Sodium Potassium Chloride Carbon Dioxide BUN Creatinine Glucose POC Glucose 283 H 306 H 354 H Calcium Phosphorus Iron TIBC Lactate Dehydrogenase Total Creatine Kinase NT-Pro-B Natriuret Pep Total Protein Albumin Ofcfg-4-Edcnfrpcu Okddu-5-Bilgvorsl Beta Globulins PEP Interpretation Cholesterol LDL Cholesterol Direct Vitamin B12 Urine WBC (Auto) Urine Creatinine Crossmatch 04/10/16 04/10/16 04/10/16 00:53 07:15 07:34 WBC RBC Hgb 11.3 L Hct MCV MCH MCHC RDW Plt Count Lymph % (Auto) [place] % (Auto) Lymph # [place] # Baso # Seg Neutrophils % Seg Neuts % (Manual) Lymphocytes % (Manual) Monocytes % (Manual) Seg Neutrophils # Seg Neutrophils # Man Lymphocytes # (Manual) Monocytes # (Manual) Basophils # (Manual) Percent Retic PT INR APTT Heparin Anti-Xa Level POC ABG pH POC ABG pCO2 POC ABG pO2 Sodium Potassium Chloride Carbon Dioxide BUN Creatinine Glucose POC Glucose 323 H 311 H Calcium Phosphorus Iron TIBC Lactate Dehydrogenase Total Creatine Kinase NT-Pro-B Natriuret Pep Total Protein Albumin Wbfeh-0-Mdckxkupy Idewb-7-Jyxglxvca Beta Globulins PEP Interpretation Cholesterol LDL Cholesterol Direct Vitamin B12 Urine WBC (Auto) Urine Creatinine Crossmatch 04/10/16 04/10/16 04/10/16 07:34 07:34 11:25 WBC RBC Hgb Hct MCV MCH MCHC RDW Plt Count Lymph % (Auto) [place] % (Auto) Lymph # [place] # Baso # Seg Neutrophils % Seg Neuts % (Manual) Lymphocytes % (Manual) Monocytes % (Manual) Seg Neutrophils # Seg Neutrophils # Man Lymphocytes # (Manual) Monocytes # (Manual) Basophils # (Manual) Percent Retic PT 17.3 H INR 1.42 H APTT Heparin Anti-Xa Level POC ABG pH POC ABG pCO2 POC ABG pO2 Sodium 158 H Potassium Chloride 118.6 H Carbon Dioxide BUN 30 H Creatinine Glucose 330 H POC Glucose 335 H Calcium 8.3 L Phosphorus Iron TIBC Lactate Dehydrogenase Total Creatine Kinase NT-Pro-B Natriuret Pep Total Protein Albumin Xkena-6-Aqlqqvzwe Uihmh-5-Hgyyacwgn Beta Globulins PEP Interpretation Cholesterol LDL Cholesterol Direct Vitamin B12 Urine WBC (Auto) Urine Creatinine Crossmatch 04/10/16 04/11/16 04/11/16 16:21 00:29 07:47 WBC RBC Hgb Hct MCV MCH MCHC RDW Plt Count Lymph % (Auto) [place] % (Auto) Lymph # [place] # Baso # Seg Neutrophils % Seg Neuts % (Manual) Lymphocytes % (Manual) Monocytes % (Manual) Seg Neutrophils # Seg Neutrophils # Man Lymphocytes # (Manual) Monocytes # (Manual) Basophils # (Manual) Percent Retic PT 18.4 H INR 1.53 H APTT Heparin Anti-Xa Level POC ABG pH POC ABG pCO2 POC ABG pO2 Sodium Potassium Chloride Carbon Dioxide BUN Creatinine Glucose POC Glucose 230 H 162 H Calcium Phosphorus Iron TIBC Lactate Dehydrogenase Total Creatine Kinase NT-Pro-B Natriuret Pep Total Protein Albumin Wgtpr-8-Qpytkmixs Itmqk-4-Kuuavefqk Beta Globulins PEP Interpretation Cholesterol LDL Cholesterol Direct Vitamin B12 Urine WBC (Auto) Urine Creatinine Crossmatch 04/11/16 04/11/16 04/12/16 07:47 11:22 04:54 WBC RBC Hgb 11.0 L Hct 35.0 L MCV MCH MCHC RDW Plt Count Lymph % (Auto) [place] % (Auto) Lymph # [place] # Baso # Seg Neutrophils % Seg Neuts % (Manual) Lymphocytes % (Manual) Monocytes % (Manual) Seg Neutrophils # Seg Neutrophils # Man Lymphocytes # (Manual) Monocytes # (Manual) Basophils # (Manual) Percent Retic PT INR APTT Heparin Anti-Xa Level POC ABG pH POC ABG pCO2 POC ABG pO2 Sodium 155 H Potassium Chloride 114.5 H Carbon Dioxide BUN 23 H Creatinine Glucose 157 H POC Glucose 229 H Calcium Phosphorus Iron TIBC Lactate Dehydrogenase Total Creatine Kinase NT-Pro-B Natriuret Pep Total Protein Albumin Sxjzx-2-Kwqkdgkyv Ybegh-0-Oiphzrnhs Beta Globulins PEP Interpretation Cholesterol LDL Cholesterol Direct Vitamin B12 Urine WBC (Auto) Urine Creatinine Crossmatch 04/12/16 04/12/16 04/12/16 04:54 04:54 05:57 WBC RBC Hgb Hct MCV MCH MCHC RDW Plt Count Lymph % (Auto) [place] % (Auto) Lymph # [place] # Baso # Seg Neutrophils % Seg Neuts % (Manual) Lymphocytes % (Manual) Monocytes % (Manual) Seg Neutrophils # Seg Neutrophils # Man Lymphocytes # (Manual) Monocytes # (Manual) Basophils # (Manual) Percent Retic PT 22.5 H INR 1.98 H APTT Heparin Anti-Xa Level 0.19 L POC ABG pH POC ABG pCO2 POC ABG pO2 Sodium 156 H Potassium Chloride 115.4 H Carbon Dioxide BUN 23 H Creatinine Glucose 143 H POC Glucose 194 H Calcium Phosphorus Iron TIBC Lactate Dehydrogenase Total Creatine Kinase NT-Pro-B Natriuret Pep Total Protein Albumin Mqqws-9-Hsvfhuuss Kcaey-4-Gbzbxuefg Beta Globulins PEP Interpretation Cholesterol LDL Cholesterol Direct Vitamin B12 Urine WBC (Auto) Urine Creatinine Crossmatch 04/12/16 04/12/16 04/12/16 12:34 19:01 23:30 WBC RBC Hgb Hct MCV MCH MCHC RDW Plt Count Lymph % (Auto) [place] % (Auto) Lymph # [place] # Baso # Seg Neutrophils % Seg Neuts % (Manual) Lymphocytes % (Manual) Monocytes % (Manual) Seg Neutrophils # Seg Neutrophils # Man Lymphocytes # (Manual) Monocytes # (Manual) Basophils # (Manual) Percent Retic PT INR APTT Heparin Anti-Xa Level POC ABG pH POC ABG pCO2 POC ABG pO2 Sodium Potassium Chloride Carbon Dioxide BUN Creatinine Glucose POC Glucose 291 H 235 H 154 H Calcium Phosphorus Iron TIBC Lactate Dehydrogenase Total Creatine Kinase NT-Pro-B Natriuret Pep Total Protein Albumin Lwkch-4-Doxewntjr Sxesq-3-Ntacgqcil Beta Globulins PEP Interpretation Cholesterol LDL Cholesterol Direct Vitamin B12 Urine WBC (Auto) Urine Creatinine Crossmatch 04/13/16 04/13/16 04/13/16 05:16 05:16 05:28 WBC RBC Hgb Hct MCV MCH MCHC RDW Plt Count Lymph % (Auto) [place] % (Auto) Lymph # [place] # Baso # Seg Neutrophils % Seg Neuts % (Manual) Lymphocytes % (Manual) Monocytes % (Manual) Seg Neutrophils # Seg Neutrophils # Man Lymphocytes # (Manual) Monocytes # (Manual) Basophils # (Manual) Percent Retic PT 27.0 H INR 2.49 H APTT Heparin Anti-Xa Level 0.20 L POC ABG pH POC ABG pCO2 POC ABG pO2 Sodium 150 H Potassium Chloride 110.5 H Carbon Dioxide BUN 21 H Creatinine Glucose 159 H POC Glucose 177 H Calcium Phosphorus Iron TIBC Lactate Dehydrogenase Total Creatine Kinase NT-Pro-B Natriuret Pep Total Protein Albumin Oilyq-4-Thohxoycd Gjidm-9-Kcduweywc Beta Globulins PEP Interpretation Cholesterol LDL Cholesterol Direct Vitamin B12 Urine WBC (Auto) Urine Creatinine Crossmatch 04/13/16 04/13/16 04/14/16 11:30 17:54 00:44 WBC RBC Hgb Hct MCV MCH MCHC RDW Plt Count Lymph % (Auto) [place] % (Auto) Lymph # [place] # Baso # Seg Neutrophils % Seg Neuts % (Manual) Lymphocytes % (Manual) Monocytes % (Manual) Seg Neutrophils # Seg Neutrophils # Man Lymphocytes # (Manual) Monocytes # (Manual) Basophils # (Manual) Percent Retic PT INR APTT Heparin Anti-Xa Level POC ABG pH POC ABG pCO2 POC ABG pO2 Sodium Potassium Chloride Carbon Dioxide BUN Creatinine Glucose POC Glucose 181 H 251 H 237 H Calcium Phosphorus Iron TIBC Lactate Dehydrogenase Total Creatine Kinase NT-Pro-B Natriuret Pep Total Protein Albumin Sibre-6-Auqpzwzij Vdiuu-4-Zcfyubqpd Beta Globulins PEP Interpretation Cholesterol LDL Cholesterol Direct Vitamin B12 Urine WBC (Auto) Urine Creatinine Crossmatch 04/14/16 04/14/16 04/14/16 05:00 05:42 05:42 WBC RBC Hgb Hct MCV MCH MCHC RDW Plt Count Lymph % (Auto) [place] % (Auto) Lymph # [place] # Baso # Seg Neutrophils % Seg Neuts % (Manual) Lymphocytes % (Manual) Monocytes % (Manual) Seg Neutrophils # Seg Neutrophils # Man Lymphocytes # (Manual) Monocytes # (Manual) Basophils # (Manual) Percent Retic PT 30.3 H INR 2.88 H APTT Heparin Anti-Xa Level 0.27 L POC ABG pH POC ABG pCO2 POC ABG pO2 Sodium Potassium 3.5 L Chloride Carbon Dioxide BUN Creatinine Glucose 160 H POC Glucose Calcium 8.2 L Phosphorus Iron TIBC Lactate Dehydrogenase Total Creatine Kinase NT-Pro-B Natriuret Pep Total Protein Albumin Nxeii-1-Mjdhifdpc Dhrtg-9-Kallyfxoo Beta Globulins PEP Interpretation Cholesterol LDL Cholesterol Direct Vitamin B12 Urine WBC (Auto) Urine Creatinine Crossmatch 04/14/16 04/14/16 04/14/16 06:02 06:16 09:18 WBC 12.3 H RBC Hgb 11.4 L Hct MCV 82 L MCH 26 L MCHC RDW Plt Count Lymph % (Auto) [place] % (Auto) Lymph # [place] # Baso # Seg Neutrophils % Seg Neuts % (Manual) Lymphocytes % (Manual) Monocytes % (Manual) Seg Neutrophils # Seg Neutrophils # Man Lymphocytes # (Manual) Monocytes # (Manual) Basophils # (Manual) Percent Retic PT INR APTT Heparin Anti-Xa Level POC ABG pH POC ABG pCO2 POC ABG pO2 Sodium Potassium Chloride Carbon Dioxide BUN Creatinine Glucose POC Glucose 156 H 164 H Calcium Phosphorus Iron TIBC Lactate Dehydrogenase Total Creatine Kinase NT-Pro-B Natriuret Pep Total Protein Albumin Dyczc-6-[id number] Nsotg-5-Vswgyobum Beta Globulins PEP Interpretation Cholesterol LDL Cholesterol Direct Vitamin B12 Urine WBC (Auto) Urine Creatinine Crossmatch 04/14/16 04/15/16 04/15/16 13:58 01:07 06:04 WBC RBC Hgb Hct MCV MCH MCHC RDW Plt Count Lymph % (Auto) [place] % (Auto) Lymph # [place] # Baso # Seg Neutrophils % Seg Neuts % (Manual) Lymphocytes % (Manual) Monocytes % (Manual) Seg Neutrophils # Seg Neutrophils # Man Lymphocytes # (Manual) Monocytes # (Manual) Basophils # (Manual) Percent Retic PT 24.9 H INR 2.25 H APTT Heparin Anti-Xa Level POC ABG pH POC ABG pCO2 POC ABG pO2 Sodium Potassium Chloride Carbon Dioxide BUN Creatinine Glucose POC Glucose 109 H 154 H Calcium Phosphorus Iron TIBC Lactate Dehydrogenase Total Creatine Kinase NT-Pro-B Natriuret Pep Total Protein Albumin Llbfq-6-Xkopkerff Pkshj-5-Szjwryfqq Beta Globulins PEP Interpretation Cholesterol LDL Cholesterol Direct Vitamin B12 Urine WBC (Auto) Urine Creatinine Crossmatch 04/15/16 04/15/16 04/16/16 06:08 12:41 00:38 WBC RBC Hgb Hct MCV MCH MCHC RDW Plt Count Lymph % (Auto) [place] % (Auto) Lymph # [place] # Baso # Seg Neutrophils % Seg Neuts % (Manual) Lymphocytes % (Manual) Monocytes % (Manual) Seg Neutrophils # Seg Neutrophils # Man Lymphocytes # (Manual) Monocytes # (Manual) Basophils # (Manual) Percent Retic PT INR APTT Heparin Anti-Xa Level POC ABG pH POC ABG pCO2 POC ABG pO2 Sodium Potassium Chloride Carbon Dioxide BUN Creatinine Glucose POC Glucose 165 H 223 H 216 H Calcium Phosphorus Iron TIBC Lactate Dehydrogenase Total Creatine Kinase NT-Pro-B Natriuret Pep Total Protein Albumin Cosox-1-Ffioltkep Kmbsh-3-Thzhzstwc Beta Globulins PEP Interpretation Cholesterol LDL Cholesterol Direct Vitamin B12 Urine WBC (Auto) Urine Creatinine Crossmatch 04/16/16 04/16/16 04/16/16 05:45 07:09 14:00 WBC RBC Hgb Hct MCV MCH MCHC RDW Plt Count Lymph % (Auto) [place] % (Auto) Lymph # [place] # Baso # Seg Neutrophils % Seg Neuts % (Manual) Lymphocytes % (Manual) Monocytes % (Manual) Seg Neutrophils # Seg Neutrophils # Man Lymphocytes # (Manual) Monocytes # (Manual) Basophils # (Manual) Percent Retic PT 19.4 H INR 1.64 H APTT Heparin Anti-Xa Level 0.10 L POC ABG pH POC ABG pCO2 POC ABG pO2 Sodium Potassium Chloride Carbon Dioxide BUN Creatinine Glucose POC Glucose 207 H 69 L Calcium Phosphorus Iron TIBC Lactate Dehydrogenase Total Creatine Kinase NT-Pro-B Natriuret Pep Total Protein Albumin Gopww-8-Pvpqbdmxh Tywsq-8-Addpmgsal Beta Globulins PEP Interpretation Cholesterol LDL Cholesterol Direct Vitamin B12 Urine WBC (Auto) Urine Creatinine Crossmatch 04/16/16 04/16/16 04/16/16 17:40 17:52 19:38 WBC RBC Hgb Hct MCV MCH MCHC RDW Plt Count Lymph % (Auto) [place] % (Auto) Lymph # [place] # Baso # Seg Neutrophils % Seg Neuts % (Manual) Lymphocytes % (Manual) Monocytes % (Manual) Seg Neutrophils # Seg Neutrophils # Man Lymphocytes # (Manual) Monocytes # (Manual) Basophils # (Manual) Percent Retic PT INR APTT Heparin Anti-Xa Level 0.26 L POC ABG pH 7.543 H 7.488 H POC ABG pCO2 26.3 L 30.3 L POC ABG pO2 55 L 203 H Sodium Potassium Chloride Carbon Dioxide BUN Creatinine Glucose POC Glucose Calcium Phosphorus Iron TIBC Lactate Dehydrogenase Total Creatine Kinase NT-Pro-B Natriuret Pep Total Protein Albumin Ndtni-5-Qqxgxcnio Pgpjb-9-Xuwrpthwa Beta Globulins PEP Interpretation Cholesterol LDL Cholesterol Direct Vitamin B12 Urine WBC (Auto) Urine Creatinine Crossmatch 04/17/16 04/17/16 04/17/16 00:04 05:10 05:36 WBC RBC Hgb Hct MCV MCH MCHC RDW Plt Count Lymph % (Auto) [place] % (Auto) Lymph # [place] # Baso # Seg Neutrophils % Seg Neuts % (Manual) Lymphocytes % (Manual) Monocytes % (Manual) Seg Neutrophils # Seg Neutrophils # Man Lymphocytes # (Manual) Monocytes # (Manual) Basophils # (Manual) Percent Retic PT INR APTT Heparin Anti-Xa Level POC ABG pH POC ABG pCO2 32.7 L POC ABG pO2 68 L Sodium Potassium Chloride Carbon Dioxide BUN Creatinine Glucose POC Glucose 113 H 161 H Calcium Phosphorus Iron TIBC Lactate Dehydrogenase Total Creatine Kinase NT-Pro-B Natriuret Pep Total Protein Albumin Krkvj-4-Jolhokkti Mukoh-2-Qwzedoqlh Beta Globulins PEP Interpretation Cholesterol LDL Cholesterol Direct Vitamin B12 Urine WBC (Auto) Urine Creatinine Crossmatch 04/17/16 04/17/16 04/17/16 05:41 08:37 11:46 WBC RBC Hgb Hct MCV MCH MCHC RDW Plt Count Lymph % (Auto) [place] % (Auto) Lymph # [place] # Baso # Seg Neutrophils % Seg Neuts % (Manual) Lymphocytes % (Manual) Monocytes % (Manual) Seg Neutrophils # Seg Neutrophils # Man Lymphocytes # (Manual) Monocytes # (Manual) Basophils # (Manual) Percent Retic PT 17.4 H INR 1.43 H APTT Heparin Anti-Xa Level POC ABG pH POC ABG pCO2 POC ABG pO2 Sodium Potassium Chloride Carbon Dioxide BUN Creatinine Glucose POC Glucose 154 H 138 H Calcium Phosphorus Iron TIBC Lactate Dehydrogenase Total Creatine Kinase NT-Pro-B Natriuret Pep Total Protein Albumin Nuoao-8-Oxhfophmq Kvevq-7-Gxivvnjkr Beta Globulins PEP Interpretation Cholesterol LDL Cholesterol Direct Vitamin B12 Urine WBC (Auto) Urine Creatinine Crossmatch 04/17/16 04/17/16 04/17/16 12:17 12:17 21:20 WBC 16.5 H RBC 3.31 L Hgb 8.8 L Hct 26.9 L MCV 81 L MCH 27 L MCHC RDW 15.5 H Plt Count Lymph % (Auto) [place] % (Auto) Lymph # [place] # Baso # Seg Neutrophils % Seg Neuts % (Manual) Lymphocytes % (Manual) 3.0 L Monocytes % (Manual) Seg Neutrophils # Seg Neutrophils # Man 10.1 H Lymphocytes # (Manual) 0.5 L Monocytes # (Manual) Basophils # (Manual) Percent Retic PT INR APTT Heparin Anti-Xa Level 0.14 L POC ABG pH POC ABG pCO2 POC ABG pO2 Sodium Potassium Chloride Carbon Dioxide 21 L BUN 38 H Creatinine 1.8 H D Glucose 131 H POC Glucose Calcium 7.6 L Phosphorus Iron TIBC Lactate Dehydrogenase Total Creatine Kinase NT-Pro-B Natriuret Pep Total Protein Albumin Fostl-8-Lctbbsuwo Yjfdt-2-Ygfxuiibc Beta Globulins PEP Interpretation Cholesterol LDL Cholesterol Direct Vitamin B12 Urine WBC (Auto) Urine Creatinine Crossmatch 04/17/16 04/17/16 04/18/16 23:38 23:41 00:21 WBC RBC Hgb Hct MCV MCH MCHC RDW Plt Count Lymph % (Auto) [place] % (Auto) Lymph # [place] # Baso # Seg Neutrophils % Seg Neuts % (Manual) Lymphocytes % (Manual) Monocytes % (Manual) Seg Neutrophils # Seg Neutrophils # Man Lymphocytes # (Manual) Monocytes # (Manual) Basophils # (Manual) Percent Retic PT INR APTT Heparin Anti-Xa Level POC ABG pH POC ABG pCO2 POC ABG pO2 Sodium Potassium Chloride Carbon Dioxide BUN Creatinine Glucose POC Glucose < 40 L < 40 L 223 H Calcium Phosphorus Iron TIBC Lactate Dehydrogenase Total Creatine Kinase NT-Pro-B Natriuret Pep Total Protein Albumin Dvpgg-5-Vqmogtmvf Lukcl-5-Szvtfhmnq Beta Globulins PEP Interpretation Cholesterol LDL Cholesterol Direct Vitamin B12 Urine WBC (Auto) Urine Creatinine Crossmatch 04/18/16 04/18/16 04/18/16 05:01 05:20 05:20 WBC 17.6 H RBC 3.44 L Hgb 9.1 L Hct 27.8 L MCV 81 L MCH 26 L MCHC RDW 15.5 H Plt Count Lymph % (Auto) 2.7 L [place] % (Auto) 8.3 H Lymph # 0.5 L [place] # 1.5 H Baso # Seg Neutrophils % 88.4 H Seg Neuts % (Manual) Lymphocytes % (Manual) Monocytes % (Manual) Seg Neutrophils # 15.6 H Seg Neutrophils # Man Lymphocytes # (Manual) Monocytes # (Manual) Basophils # (Manual) Percent Retic PT 17.4 H INR 1.43 H APTT Heparin Anti-Xa Level POC ABG pH 7.528 H POC ABG pCO2 27.9 L POC ABG pO2 Sodium Potassium Chloride Carbon Dioxide BUN Creatinine Glucose POC Glucose Calcium Phosphorus Iron TIBC Lactate Dehydrogenase Total Creatine Kinase NT-Pro-B Natriuret Pep Total Protein Albumin Ynxrm-6-Tjlehcnon Ibkjp-2-Zotggjrbk Beta Globulins PEP Interpretation Cholesterol LDL Cholesterol Direct Vitamin B12 Urine WBC (Auto) Urine Creatinine Crossmatch 04/18/16 04/18/16 04/18/16 05:20 05:31 06:50 WBC RBC Hgb Hct MCV MCH MCHC RDW Plt Count Lymph % (Auto) [place] % (Auto) Lymph # [place] # Baso # Seg Neutrophils % Seg Neuts % (Manual) Lymphocytes % (Manual) Monocytes % (Manual) Seg Neutrophils # Seg Neutrophils # Man Lymphocytes # (Manual) Monocytes # (Manual) Basophils # (Manual) Percent Retic PT INR APTT Heparin Anti-Xa Level POC ABG pH POC ABG pCO2 POC ABG pO2 Sodium Potassium 3.4 L Chloride Carbon Dioxide 21 L BUN 22 H Creatinine Glucose POC Glucose 61 L 124 H Calcium 8.0 L Phosphorus Iron TIBC Lactate Dehydrogenase Total Creatine Kinase NT-Pro-B Natriuret Pep Total Protein Albumin Syebl-1-Sbrlmukqy Vbcwd-7-Onruqasnp Beta Globulins PEP Interpretation Cholesterol LDL Cholesterol Direct Vitamin B12 Urine WBC (Auto) Urine Creatinine Crossmatch 04/18/16 04/18/16 04/19/16 17:42 22:40 00:31 WBC RBC Hgb Hct MCV MCH MCHC RDW Plt Count Lymph % (Auto) [place] % (Auto) Lymph # [place] # Baso # Seg Neutrophils % Seg Neuts % (Manual) Lymphocytes % (Manual) Monocytes % (Manual) Seg Neutrophils # Seg Neutrophils # Man Lymphocytes # (Manual) Monocytes # (Manual) Basophils # (Manual) Percent Retic PT INR APTT Heparin Anti-Xa Level < 0.10 L POC ABG pH POC ABG pCO2 POC ABG pO2 Sodium Potassium Chloride Carbon Dioxide BUN Creatinine Glucose POC Glucose 159 H 134 H Calcium Phosphorus Iron TIBC Lactate Dehydrogenase Total Creatine Kinase NT-Pro-B Natriuret Pep Total Protein Albumin Rxqqt-3-Nbtvzarzc Zhakm-2-Xqqutxfcw Beta Globulins PEP Interpretation Cholesterol LDL Cholesterol Direct Vitamin B12 Urine WBC (Auto) Urine Creatinine Crossmatch 04/19/16 04/19/16 04/19/16 04:18 04:18 04:25 WBC 19.0 H RBC 3.58 L Hgb 9.3 L Hct 28.8 L MCV 80 L MCH 26 L MCHC RDW 15.5 H Plt Count Lymph % (Auto) 2.8 L [place] % (Auto) 7.4 H Lymph # 0.5 L [place] # 1.4 H Baso # Seg Neutrophils % 89.4 H Seg Neuts % (Manual) Lymphocytes % (Manual) Monocytes % (Manual) Seg Neutrophils # 17.0 H Seg Neutrophils # Man Lymphocytes # (Manual) Monocytes # (Manual) Basophils # (Manual) Percent Retic PT INR APTT Heparin Anti-Xa Level POC ABG pH 7.527 H POC ABG pCO2 27.1 L POC ABG pO2 Sodium Potassium Chloride Carbon Dioxide BUN 22 H Creatinine Glucose 215 H POC Glucose Calcium 8.0 L Phosphorus Iron TIBC Lactate Dehydrogenase Total Creatine Kinase NT-Pro-B Natriuret Pep Total Protein Albumin Vmlbf-0-Faozvtlfk Mdydu-1-Gwmvrjmar Beta Globulins PEP Interpretation Cholesterol LDL Cholesterol Direct Vitamin B12 Urine WBC (Auto) Urine Creatinine Crossmatch 04/19/16 04/19/16 04/19/16 05:45 08:10 14:08 WBC RBC Hgb Hct MCV MCH MCHC RDW Plt Count Lymph % (Auto) [place] % (Auto) Lymph # [place] # Baso # Seg Neutrophils % Seg Neuts % (Manual) Lymphocytes % (Manual) Monocytes % (Manual) Seg Neutrophils # Seg Neutrophils # Man Lymphocytes # (Manual) Monocytes # (Manual) Basophils # (Manual) Percent Retic PT 22.1 H INR 1.93 H APTT Heparin Anti-Xa Level 0.17 L POC ABG pH POC ABG pCO2 POC ABG pO2 Sodium Potassium Chloride Carbon Dioxide BUN Creatinine Glucose POC Glucose 196 H 318 H Calcium Phosphorus Iron TIBC Lactate Dehydrogenase Total Creatine Kinase NT-Pro-B Natriuret Pep Total Protein Albumin Wqjlf-0-Gzwjmgigj Dtjhv-6-Bqhkeudua Beta Globulins PEP Interpretation Cholesterol LDL Cholesterol Direct Vitamin B12 Urine WBC (Auto) Urine Creatinine Crossmatch 04/19/16 04/20/16 04/20/16 17:27 03:55 03:55 WBC 18.5 H RBC 3.19 L Hgb 8.4 L Hct 25.7 L MCV 80 L MCH 26 L MCHC RDW 15.9 H Plt Count Lymph % (Auto) 4.3 L [place] % (Auto) 10.1 H Lymph # 0.8 L [place] # 1.9 H Baso # Seg Neutrophils % 85.2 H Seg Neuts % (Manual) Lymphocytes % (Manual) Monocytes % (Manual) Seg Neutrophils # 15.8 H Seg Neutrophils # Man Lymphocytes # (Manual) Monocytes # (Manual) Basophils # (Manual) Percent Retic PT 22.0 H INR 1.92 H APTT Heparin Anti-Xa Level 0.14 L POC ABG pH POC ABG pCO2 POC ABG pO2 Sodium Potassium Chloride Carbon Dioxide BUN Creatinine Glucose POC Glucose 230 H Calcium Phosphorus Iron TIBC Lactate Dehydrogenase Total Creatine Kinase NT-Pro-B Natriuret Pep Total Protein Albumin Gvzof-9-Gflbtlczx Grque-6-Qvhqgtqcl Beta Globulins PEP Interpretation Cholesterol LDL Cholesterol Direct Vitamin B12 Urine WBC (Auto) Urine Creatinine Crossmatch 04/20/16 04/20/16 04/20/16 03:55 04:16 05:52 WBC RBC Hgb Hct MCV MCH MCHC RDW Plt Count Lymph % (Auto) [place] % (Auto) Lymph # [place] # Baso # Seg Neutrophils % Seg Neuts % (Manual) Lymphocytes % (Manual) Monocytes % (Manual) Seg Neutrophils # Seg Neutrophils # Man Lymphocytes # (Manual) Monocytes # (Manual) Basophils # (Manual) Percent Retic PT INR APTT Heparin Anti-Xa Level POC ABG pH 7.474 H POC ABG pCO2 26.5 L POC ABG pO2 Sodium Potassium Chloride Carbon Dioxide 18 L BUN 38 H Creatinine 2.7 H D Glucose 159 H POC Glucose 214 H Calcium 8.0 L Phosphorus Iron TIBC Lactate Dehydrogenase Total Creatine Kinase NT-Pro-B Natriuret Pep Total Protein Albumin Felgm-8-Okuoeqnul Pigbj-4-Atoiuuypq Beta Globulins PEP Interpretation Cholesterol LDL Cholesterol Direct Vitamin B12 Urine WBC (Auto) Urine Creatinine Crossmatch 04/20/16 04/20/16 04/20/16 10:32 11:27 11:50 WBC RBC Hgb Hct MCV MCH MCHC RDW Plt Count Lymph % (Auto) [place] % (Auto) Lymph # [place] # Baso # Seg Neutrophils % Seg Neuts % (Manual) Lymphocytes % (Manual) Monocytes % (Manual) Seg Neutrophils # Seg Neutrophils # Man Lymphocytes # (Manual) Monocytes # (Manual) Basophils # (Manual) Percent Retic PT INR APTT Heparin Anti-Xa Level POC ABG pH POC ABG pCO2 POC ABG pO2 Sodium Potassium Chloride Carbon Dioxide 20 L BUN 45 H Creatinine 3.0 H Glucose 215 H POC Glucose 248 H Calcium 8.0 L Phosphorus Iron TIBC Lactate Dehydrogenase Total Creatine Kinase NT-Pro-B Natriuret Pep Total Protein Albumin Rlbfp-9-Fghmekmfg Ckdhw-0-Vulxhqzil Beta Globulins PEP Interpretation Cholesterol LDL Cholesterol Direct Vitamin B12 Urine WBC (Auto) Urine Creatinine 85.5 H Crossmatch 04/20/16 04/21/16 04/21/16 16:59 00:13 04:29 WBC RBC Hgb Hct MCV MCH MCHC RDW Plt Count Lymph % (Auto) [place] % (Auto) Lymph # [place] # Baso # Seg Neutrophils % Seg Neuts % (Manual) Lymphocytes % (Manual) Monocytes % (Manual) Seg Neutrophils # Seg Neutrophils # Man Lymphocytes # (Manual) Monocytes # (Manual) Basophils # (Manual) Percent Retic PT 18.1 H INR 1.50 H APTT Heparin Anti-Xa Level 0.10 L POC ABG pH POC ABG pCO2 POC ABG pO2 Sodium Potassium Chloride Carbon Dioxide BUN Creatinine Glucose POC Glucose 312 H 287 H Calcium Phosphorus Iron TIBC Lactate Dehydrogenase Total Creatine Kinase NT-Pro-B Natriuret Pep Total Protein Albumin Hxppo-9-Ngilaksrm Xyaqv-9-Nvzchbcdo Beta Globulins PEP Interpretation Cholesterol LDL Cholesterol Direct Vitamin B12 Urine WBC (Auto) Urine Creatinine Crossmatch 04/21/16 04/21/16 04/21/16 04:29 04:29 04:55 WBC 15.4 H RBC 3.24 L Hgb 8.4 L Hct 25.6 L MCV 79 L MCH 26 L MCHC RDW 16.1 H Plt Count Lymph % (Auto) 6.8 L [place] % (Auto) 12.9 H Lymph # 1.0 L [place] # 2.0 H Baso # Seg Neutrophils % 79.8 H Seg Neuts % (Manual) Lymphocytes % (Manual) Monocytes % (Manual) Seg Neutrophils # 12.3 H Seg Neutrophils # Man Lymphocytes # (Manual) Monocytes # (Manual) Basophils # (Manual) Percent Retic PT INR APTT Heparin Anti-Xa Level POC ABG pH 7.512 H POC ABG pCO2 25.4 L POC ABG pO2 Sodium 135 L Potassium Chloride Carbon Dioxide 18 L BUN 57 H Creatinine 3.9 H Glucose 202 H POC Glucose Calcium 8.0 L Phosphorus Iron TIBC Lactate Dehydrogenase Total Creatine Kinase NT-Pro-B Natriuret Pep Total Protein Albumin Wrqss-1-Iuqrkilrt Ktmob-3-Agfuphefi Beta Globulins PEP Interpretation Cholesterol LDL Cholesterol Direct Vitamin B12 Urine WBC (Auto) Urine Creatinine Crossmatch 04/21/16 04/21/16 04/21/16 05:20 12:08 12:16 WBC RBC Hgb Hct MCV MCH MCHC RDW Plt Count Lymph % (Auto) [place] % (Auto) Lymph # [place] # Baso # Seg Neutrophils % Seg Neuts % (Manual) Lymphocytes % (Manual) Monocytes % (Manual) Seg Neutrophils # Seg Neutrophils # Man Lymphocytes # (Manual) Monocytes # (Manual) Basophils # (Manual) Percent Retic PT INR APTT Heparin Anti-Xa Level 0.16 L POC ABG pH POC ABG pCO2 POC ABG pO2 Sodium Potassium Chloride Carbon Dioxide BUN Creatinine Glucose POC Glucose 203 H 221 H Calcium Phosphorus Iron TIBC Lactate Dehydrogenase Total Creatine Kinase NT-Pro-B Natriuret Pep Total Protein Albumin Hbeks-7-Laygrhnoh Jwzlu-4-Jxtdusarh Beta Globulins PEP Interpretation Cholesterol LDL Cholesterol Direct Vitamin B12 Urine WBC (Auto) Urine Creatinine Crossmatch 04/21/16 04/22/16 04/22/16 17:22 05:01 05:20 WBC RBC Hgb Hct MCV MCH MCHC RDW Plt Count Lymph % (Auto) [place] % (Auto) Lymph # [place] # Baso # Seg Neutrophils % Seg Neuts % (Manual) Lymphocytes % (Manual) Monocytes % (Manual) Seg Neutrophils # Seg Neutrophils # Man Lymphocytes # (Manual) Monocytes # (Manual) Basophils # (Manual) Percent Retic PT 17.5 H INR 1.44 H APTT Heparin Anti-Xa Level POC ABG pH 7.460 H POC ABG pCO2 27.9 L POC ABG pO2 Sodium Potassium Chloride Carbon Dioxide BUN Creatinine Glucose POC Glucose 189 H Calcium Phosphorus Iron TIBC Lactate Dehydrogenase Total Creatine Kinase NT-Pro-B Natriuret Pep Total Protein Albumin Kxzwe-2-Dhklvqomg Mrwbl-5-Garporyrk Beta Globulins PEP Interpretation Cholesterol LDL Cholesterol Direct Vitamin B12 Urine WBC (Auto) Urine Creatinine Crossmatch 04/22/16 04/22/16 04/22/16 05:43 06:40 08:08 WBC RBC Hgb Hct MCV MCH MCHC RDW Plt Count Lymph % (Auto) [place] % (Auto) Lymph # [place] # Baso # Seg Neutrophils % Seg Neuts % (Manual) Lymphocytes % (Manual) Monocytes % (Manual) Seg Neutrophils # Seg Neutrophils # Man Lymphocytes # (Manual) Monocytes # (Manual) Basophils # (Manual) Percent Retic PT INR APTT Heparin Anti-Xa Level POC ABG pH POC ABG pCO2 POC ABG pO2 Sodium Potassium Chloride Carbon Dioxide BUN Creatinine Glucose POC Glucose 56 L 136 H 134 H Calcium Phosphorus Iron TIBC Lactate Dehydrogenase Total Creatine Kinase NT-Pro-B Natriuret Pep Total Protein Albumin Kketl-3-Xlypryvqx Jmpiz-2-Sbnwdgows Beta Globulins PEP Interpretation Cholesterol LDL Cholesterol Direct Vitamin B12 Urine WBC (Auto) Urine Creatinine Crossmatch 04/22/16 04/22/16 04/22/16 11:18 12:10 18:17 WBC RBC Hgb Hct MCV MCH MCHC RDW Plt Count Lymph % (Auto) [place] % (Auto) Lymph # [place] # Baso # Seg Neutrophils % Seg Neuts % (Manual) Lymphocytes % (Manual) Monocytes % (Manual) Seg Neutrophils # Seg Neutrophils # Man Lymphocytes # (Manual) Monocytes # (Manual) Basophils # (Manual) Percent Retic PT INR APTT Heparin Anti-Xa Level 0.12 L POC ABG pH POC ABG pCO2 POC ABG pO2 Sodium Potassium Chloride Carbon Dioxide BUN Creatinine Glucose POC Glucose 142 H 227 H Calcium Phosphorus Iron TIBC Lactate Dehydrogenase Total Creatine Kinase NT-Pro-B Natriuret Pep Total Protein Albumin Xleie-5-Aogvuwtna Tjpme-1-Wqxhkctfu Beta Globulins PEP Interpretation Cholesterol LDL Cholesterol Direct Vitamin B12 Urine WBC (Auto) Urine Creatinine Crossmatch 04/22/16 04/22/16 04/23/16 22:28 23:47 04:49 WBC RBC Hgb Hct MCV MCH MCHC RDW Plt Count Lymph % (Auto) [place] % (Auto) Lymph # [place] # Baso # Seg Neutrophils % Seg Neuts % (Manual) Lymphocytes % (Manual) Monocytes % (Manual) Seg Neutrophils # Seg Neutrophils # Man Lymphocytes # (Manual) Monocytes # (Manual) Basophils # (Manual) Percent Retic PT INR APTT Heparin Anti-Xa Level 0.16 L POC ABG pH POC ABG pCO2 32.6 L POC ABG pO2 122 H Sodium Potassium Chloride Carbon Dioxide BUN Creatinine Glucose POC Glucose 266 H Calcium Phosphorus Iron TIBC Lactate Dehydrogenase Total Creatine Kinase NT-Pro-B Natriuret Pep Total Protein Albumin Lpwpr-5-Ryvfllzvw Lvkti-0-Axdmmiiat Beta Globulins PEP Interpretation Cholesterol LDL Cholesterol Direct Vitamin B12 Urine WBC (Auto) Urine Creatinine Crossmatch 04/23/16 04/23/16 04/23/16 05:41 08:05 08:34 WBC RBC Hgb Hct MCV MCH MCHC RDW Plt Count Lymph % (Auto) [place] % (Auto) Lymph # [place] # Baso # Seg Neutrophils % Seg Neuts % (Manual) Lymphocytes % (Manual) Monocytes % (Manual) Seg Neutrophils # Seg Neutrophils # Man Lymphocytes # (Manual) Monocytes # (Manual) Basophils # (Manual) Percent Retic PT INR APTT Heparin Anti-Xa Level POC ABG pH POC ABG pCO2 POC ABG pO2 Sodium Potassium Chloride 109.5 H Carbon Dioxide 21 L BUN 23 H Creatinine Glucose 227 H POC Glucose 227 H 224 H Calcium 8.2 L Phosphorus Iron TIBC Lactate Dehydrogenase Total Creatine Kinase NT-Pro-B Natriuret Pep Total Protein Albumin Nbhej-4-Zqsrpslmw Tdjvn-5-Zjnzqmbhf Beta Globulins PEP Interpretation Cholesterol LDL Cholesterol Direct Vitamin B12 Urine WBC (Auto) Urine Creatinine Crossmatch 04/23/16 04/23/16 04/23/16 10:45 11:37 22:49 WBC RBC Hgb Hct MCV MCH MCHC RDW Plt Count Lymph % (Auto) [place] % (Auto) Lymph # [place] # Baso # Seg Neutrophils % Seg Neuts % (Manual) Lymphocytes % (Manual) Monocytes % (Manual) Seg Neutrophils # Seg Neutrophils # Man Lymphocytes # (Manual) Monocytes # (Manual) Basophils # (Manual) Percent Retic PT 15.9 H INR 1.28 H APTT Heparin Anti-Xa Level 0.12 L POC ABG pH POC ABG pCO2 POC ABG pO2 Sodium Potassium Chloride Carbon Dioxide BUN Creatinine Glucose POC Glucose 256 H Calcium Phosphorus Iron TIBC Lactate Dehydrogenase Total Creatine Kinase NT-Pro-B Natriuret Pep Total Protein Albumin Fndux-0-Evsqxjaes Kxilv-4-Khidmojse Beta Globulins PEP Interpretation Cholesterol LDL Cholesterol Direct Vitamin B12 Urine WBC (Auto) Urine Creatinine Crossmatch 04/23/16 04/24/16 04/24/16 23:59 05:29 06:03 WBC RBC Hgb Hct MCV MCH MCHC RDW Plt Count Lymph % (Auto) [place] % (Auto) Lymph # [place] # Baso # Seg Neutrophils % Seg Neuts % (Manual) Lymphocytes % (Manual) Monocytes % (Manual) Seg Neutrophils # Seg Neutrophils # Man Lymphocytes # (Manual) Monocytes # (Manual) Basophils # (Manual) Percent Retic PT INR APTT Heparin Anti-Xa Level POC ABG pH 7.464 H POC ABG pCO2 32.4 L POC ABG pO2 115 H Sodium Potassium Chloride Carbon Dioxide BUN Creatinine Glucose POC Glucose 176 H 256 H Calcium Phosphorus Iron TIBC Lactate Dehydrogenase Total Creatine Kinase NT-Pro-B Natriuret Pep Total Protein Albumin Kwumw-8-Iygnrctfi Huogy-9-Ibkveczty Beta Globulins PEP Interpretation Cholesterol LDL Cholesterol Direct Vitamin B12 Urine WBC (Auto) Urine Creatinine Crossmatch 04/24/16 04/24/16 04/24/16 07:59 12:10 17:17 WBC RBC Hgb Hct MCV MCH MCHC RDW Plt Count Lymph % (Auto) [place] % (Auto) Lymph # [place] # Baso # Seg Neutrophils % Seg Neuts % (Manual) Lymphocytes % (Manual) Monocytes % (Manual) Seg Neutrophils # Seg Neutrophils # Man Lymphocytes # (Manual) Monocytes # (Manual) Basophils # (Manual) Percent Retic PT INR APTT Heparin Anti-Xa Level 0.18 L POC ABG pH POC ABG pCO2 POC ABG pO2 Sodium Potassium Chloride Carbon Dioxide BUN Creatinine Glucose POC Glucose 304 H 325 H Calcium Phosphorus Iron TIBC Lactate Dehydrogenase Total Creatine Kinase NT-Pro-B Natriuret Pep Total Protein Albumin Tbnet-8-Gufghdozy Qauxv-1-Htgnosebq Beta Globulins PEP Interpretation Cholesterol LDL Cholesterol Direct Vitamin B12 Urine WBC (Auto) Urine Creatinine Crossmatch 04/25/16 04/25/16 04/25/16 00:52 06:40 06:44 WBC RBC Hgb Hct MCV MCH MCHC RDW Plt Count Lymph % (Auto) [place] % (Auto) Lymph # [place] # Baso # Seg Neutrophils % Seg Neuts % (Manual) Lymphocytes % (Manual) Monocytes % (Manual) Seg Neutrophils # Seg Neutrophils # Man Lymphocytes # (Manual) Monocytes # (Manual) Basophils # (Manual) Percent Retic PT INR APTT Heparin Anti-Xa Level 0.11 L POC ABG pH POC ABG pCO2 POC ABG pO2 Sodium Potassium Chloride Carbon Dioxide BUN Creatinine Glucose POC Glucose 212 H 184 H Calcium Phosphorus Iron TIBC Lactate Dehydrogenase Total Creatine Kinase NT-Pro-B Natriuret Pep Total Protein Albumin Opioh-2-Elrkzrsyb Nuchk-3-Xfxxnfmjb Beta Globulins PEP Interpretation Cholesterol LDL Cholesterol Direct Vitamin B12 Urine WBC (Auto) Urine Creatinine Crossmatch 04/25/16 04/25/16 04/25/16 11:40 13:26 17:27 WBC RBC Hgb Hct MCV MCH MCHC RDW Plt Count Lymph % (Auto) [place] % (Auto) Lymph # [place] # Baso # Seg Neutrophils % Seg Neuts % (Manual) Lymphocytes % (Manual) Monocytes % (Manual) Seg Neutrophils # Seg Neutrophils # Man Lymphocytes # (Manual) Monocytes # (Manual) Basophils # (Manual) Percent Retic PT INR APTT Heparin Anti-Xa Level 0.21 L POC ABG pH POC ABG pCO2 POC ABG pO2 Sodium Potassium Chloride Carbon Dioxide BUN Creatinine Glucose POC Glucose 206 H 204 H Calcium Phosphorus Iron TIBC Lactate Dehydrogenase Total Creatine Kinase NT-Pro-B Natriuret Pep Total Protein Albumin Fzgih-1-Pzxlcakqw Rwnic-8-Nioobmvuy Beta Globulins PEP Interpretation Cholesterol LDL Cholesterol Direct Vitamin B12 Urine WBC (Auto) Urine Creatinine Crossmatch 04/25/16 04/26/16 04/26/16 23:46 06:31 11:51 WBC RBC Hgb Hct MCV MCH MCHC RDW Plt Count Lymph % (Auto) [place] % (Auto) Lymph # [place] # Baso # Seg Neutrophils % Seg Neuts % (Manual) Lymphocytes % (Manual) Monocytes % (Manual) Seg Neutrophils # Seg Neutrophils # Man Lymphocytes # (Manual) Monocytes # (Manual) Basophils # (Manual) Percent Retic PT INR APTT Heparin Anti-Xa Level POC ABG pH POC ABG pCO2 POC ABG pO2 Sodium Potassium Chloride Carbon Dioxide BUN Creatinine Glucose POC Glucose 162 H 148 H 178 H Calcium Phosphorus Iron TIBC Lactate Dehydrogenase Total Creatine Kinase NT-Pro-B Natriuret Pep Total Protein Albumin Crzty-5-Lguksseto Hmlvj-7-Sntcnptrx Beta Globulins PEP Interpretation Cholesterol LDL Cholesterol Direct Vitamin B12 Urine WBC (Auto) Urine Creatinine Crossmatch 04/26/16 04/26/16 04/26/16 12:17 16:16 18:14 WBC RBC Hgb Hct MCV MCH MCHC RDW Plt Count Lymph % (Auto) [place] % (Auto) Lymph # [place] # Baso # Seg Neutrophils % Seg Neuts % (Manual) Lymphocytes % (Manual) Monocytes % (Manual) Seg Neutrophils # Seg Neutrophils # Man Lymphocytes # (Manual) Monocytes # (Manual) Basophils # (Manual) Percent Retic PT INR APTT Heparin Anti-Xa Level POC ABG pH 7.513 H POC ABG pCO2 POC ABG pO2 76 L Sodium Potassium Chloride Carbon Dioxide BUN Creatinine Glucose POC Glucose 186 H 172 H Calcium Phosphorus Iron TIBC Lactate Dehydrogenase Total Creatine Kinase NT-Pro-B Natriuret Pep Total Protein Albumin Soqmt-1-Zisemxrud Yhith-3-Vbygupaoo Beta Globulins PEP Interpretation Cholesterol LDL Cholesterol Direct Vitamin B12 Urine WBC (Auto) Urine Creatinine Crossmatch 04/26/16 04/26/16 04/27/16 19:27 23:28 04:21 WBC 13.1 H RBC 2.99 L Hgb 7.8 L Hct 24.0 L MCV 81 L MCH 26 L MCHC RDW 16.7 H Plt Count 486 H Lymph % (Auto) 12.5 L [place] % (Auto) 7.9 H Lymph # [place] # 1.0 H Baso # Seg Neutrophils % 77.5 H Seg Neuts % (Manual) Lymphocytes % (Manual) Monocytes % (Manual) Seg Neutrophils # 10.2 H Seg Neutrophils # Man Lymphocytes # (Manual) Monocytes # (Manual) Basophils # (Manual) Percent Retic PT INR APTT Heparin Anti-Xa Level 0.22 L POC ABG pH POC ABG pCO2 POC ABG pO2 Sodium Potassium Chloride Carbon Dioxide BUN Creatinine Glucose POC Glucose 141 H Calcium Phosphorus Iron TIBC Lactate Dehydrogenase Total Creatine Kinase NT-Pro-B Natriuret Pep Total Protein Albumin Sygzs-8-Mmwvicnbs Vhtut-4-Utgjrxjxp Beta Globulins PEP Interpretation Cholesterol LDL Cholesterol Direct Vitamin B12 Urine WBC (Auto) Urine Creatinine Crossmatch 04/27/16 04/27/16 04/27/16 04:21 05:46 11:04 WBC RBC Hgb Hct MCV MCH MCHC RDW Plt Count Lymph % (Auto) [place] % (Auto) Lymph # [place] # Baso # Seg Neutrophils % Seg Neuts % (Manual) Lymphocytes % (Manual) Monocytes % (Manual) Seg Neutrophils # Seg Neutrophils # Man Lymphocytes # (Manual) Monocytes # (Manual) Basophils # (Manual) Percent Retic PT INR APTT Heparin Anti-Xa Level POC ABG pH 7.489 H POC ABG pCO2 POC ABG pO2 71 L Sodium Potassium Chloride Carbon Dioxide BUN Creatinine 0.6 L Glucose 187 H POC Glucose 192 H Calcium 8.0 L Phosphorus Iron TIBC Lactate Dehydrogenase Total Creatine Kinase NT-Pro-B Natriuret Pep Total Protein 6.0 L Albumin 2.0 L Lbyxh-9-Vblponrdr Vkvrt-3-Cdvvkizuc Beta Globulins PEP Interpretation Cholesterol LDL Cholesterol Direct Vitamin B12 Urine WBC (Auto) Urine Creatinine Crossmatch 04/27/16 04/27/16 04/27/16 14:12 21:58 23:38 WBC RBC Hgb Hct MCV MCH MCHC RDW Plt Count Lymph % (Auto) [place] % (Auto) Lymph # [place] # Baso # Seg Neutrophils % Seg Neuts % (Manual) Lymphocytes % (Manual) Monocytes % (Manual) Seg Neutrophils # Seg Neutrophils # Man Lymphocytes # (Manual) Monocytes # (Manual) Basophils # (Manual) Percent Retic PT INR APTT Heparin Anti-Xa Level 0.24 L POC ABG pH POC ABG pCO2 POC ABG pO2 Sodium Potassium Chloride Carbon Dioxide BUN Creatinine Glucose POC Glucose 216 H 181 H Calcium Phosphorus Iron TIBC Lactate Dehydrogenase Total Creatine Kinase NT-Pro-B Natriuret Pep Total Protein Albumin Imeui-1-Bfezfksza Usrcn-0-Vnfafdkai Beta Globulins PEP Interpretation Cholesterol LDL Cholesterol Direct Vitamin B12 Urine WBC (Auto) Urine Creatinine Crossmatch 04/28/16 04/28/16 04/28/16 04:28 05:52 11:31 WBC RBC Hgb Hct MCV MCH MCHC RDW Plt Count Lymph % (Auto) [place] % (Auto) Lymph # [place] # Baso # Seg Neutrophils % Seg Neuts % (Manual) Lymphocytes % (Manual) Monocytes % (Manual) Seg Neutrophils # Seg Neutrophils # Man Lymphocytes # (Manual) Monocytes # (Manual) Basophils # (Manual) Percent Retic PT INR APTT Heparin Anti-Xa Level POC ABG pH 7.524 H POC ABG pCO2 POC ABG pO2 Sodium Potassium Chloride Carbon Dioxide BUN Creatinine Glucose POC Glucose 254 H 280 H Calcium Phosphorus Iron TIBC Lactate Dehydrogenase Total Creatine Kinase NT-Pro-B Natriuret Pep Total Protein Albumin Bqpra-9-Slzskpdta Ktekp-1-Xodqujenk Beta Globulins PEP Interpretation Cholesterol LDL Cholesterol Direct Vitamin B12 Urine WBC (Auto) Urine Creatinine Crossmatch 04/28/16 04/28/16 04/29/16 17:30 19:52 00:47 WBC RBC Hgb Hct MCV MCH MCHC RDW Plt Count Lymph % (Auto) [place] % (Auto) Lymph # [place] # Baso # Seg Neutrophils % Seg Neuts % (Manual) Lymphocytes % (Manual) Monocytes % (Manual) Seg Neutrophils # Seg Neutrophils # Man Lymphocytes # (Manual) Monocytes # (Manual) Basophils # (Manual) Percent Retic PT INR APTT Heparin Anti-Xa Level 0.15 L POC ABG pH POC ABG pCO2 POC ABG pO2 Sodium Potassium Chloride Carbon Dioxide BUN Creatinine Glucose POC Glucose 208 H 265 H Calcium Phosphorus Iron TIBC Lactate Dehydrogenase Total Creatine Kinase NT-Pro-B Natriuret Pep Total Protein Albumin Fvvsn-4-Rlqpgzkww Syiqt-7-Ickkkxztf Beta Globulins PEP Interpretation Cholesterol LDL Cholesterol Direct Vitamin B12 Urine WBC (Auto) Urine Creatinine Crossmatch 04/29/16 04/29/16 04/29/16 04:00 04:00 04:29 WBC 13.4 H RBC 2.56 L Hgb 6.9 L Hct 20.6 L MCV 81 L MCH 27 L MCHC RDW 16.2 H Plt Count 513 H Lymph % (Auto) 10.0 L [place] % (Auto) 12.0 H Lymph # [place] # 1.6 H Baso # Seg Neutrophils % 77.1 H Seg Neuts % (Manual) Lymphocytes % (Manual) Monocytes % (Manual) Seg Neutrophils # 10.4 H Seg Neutrophils # Man Lymphocytes # (Manual) Monocytes # (Manual) Basophils # (Manual) Percent Retic PT INR APTT Heparin Anti-Xa Level POC ABG pH 7.501 H POC ABG pCO2 POC ABG pO2 76 L Sodium Potassium Chloride Carbon Dioxide BUN 27 H Creatinine Glucose 204 H POC Glucose Calcium 8.1 L Phosphorus Iron TIBC Lactate Dehydrogenase Total Creatine Kinase NT-Pro-B Natriuret Pep Total Protein Albumin Ulwhe-4-Zipuaemay Zbobx-5-Dtlutsgga Beta Globulins PEP Interpretation Cholesterol LDL Cholesterol Direct Vitamin B12 Urine WBC (Auto) Urine Creatinine Crossmatch 04/29/16 04/29/16 04/29/16 06:03 10:05 10:16 WBC RBC Hgb Hct MCV MCH MCHC RDW Plt Count Lymph % (Auto) [place] % (Auto) Lymph # [place] # Baso # Seg Neutrophils % Seg Neuts % (Manual) Lymphocytes % (Manual) Monocytes % (Manual) Seg Neutrophils # Seg Neutrophils # Man Lymphocytes # (Manual) Monocytes # (Manual) Basophils # (Manual) Percent Retic 3.68 H PT INR APTT Heparin Anti-Xa Level POC ABG pH POC ABG pCO2 POC ABG pO2 Sodium Potassium Chloride Carbon Dioxide BUN Creatinine Glucose POC Glucose 192 H Calcium Phosphorus Iron TIBC Lactate Dehydrogenase Total Creatine Kinase NT-Pro-B Natriuret Pep Total Protein Albumin Dmltw-2-Kzaykmmxe Fjgsy-1-Pvtzsyvlp Beta Globulins PEP Interpretation Cholesterol LDL Cholesterol Direct Vitamin B12 Urine WBC (Auto) Urine Creatinine Crossmatch See Detail 04/29/16 04/29/16 04/29/16 10:16 10:16 11:23 WBC RBC Hgb Hct MCV MCH MCHC RDW Plt Count Lymph % (Auto) [place] % (Auto) Lymph # [place] # Baso # Seg Neutrophils % Seg Neuts % (Manual) Lymphocytes % (Manual) Monocytes % (Manual) Seg Neutrophils # Seg Neutrophils # Man Lymphocytes # (Manual) Monocytes # (Manual) Basophils # (Manual) Percent Retic PT INR APTT Heparin Anti-Xa Level POC ABG pH POC ABG pCO2 POC ABG pO2 Sodium Potassium Chloride Carbon Dioxide BUN Creatinine Glucose POC Glucose 116 H Calcium Phosphorus Iron 10 L TIBC 138 L Lactate Dehydrogenase 204 H Total Creatine Kinase NT-Pro-B Natriuret Pep Total Protein Albumin Puaep-7-Lzbyqpggq Wclxx-1-Ytywiluuj Beta Globulins PEP Interpretation Cholesterol LDL Cholesterol Direct Vitamin B12 1005 H Urine WBC (Auto) Urine Creatinine Crossmatch 04/29/16 04/29/16 04/30/16 17:34 23:19 03:19 WBC RBC Hgb 9.0 L Hct 26.7 L D MCV MCH MCHC RDW Plt Count Lymph % (Auto) [place] % (Auto) Lymph # [place] # Baso # Seg Neutrophils % Seg Neuts % (Manual) Lymphocytes % (Manual) Monocytes % (Manual) Seg Neutrophils # Seg Neutrophils # Man Lymphocytes # (Manual) Monocytes # (Manual) Basophils # (Manual) Percent Retic PT INR APTT Heparin Anti-Xa Level POC ABG pH POC ABG pCO2 POC ABG pO2 Sodium Potassium Chloride Carbon Dioxide BUN Creatinine Glucose POC Glucose 142 H 242 H Calcium Phosphorus Iron TIBC Lactate Dehydrogenase Total Creatine Kinase NT-Pro-B Natriuret Pep Total Protein Albumin Hxxlw-5-Fndamvwuv Oeihr-7-Kkwtlhvfw Beta Globulins PEP Interpretation Cholesterol LDL Cholesterol Direct Vitamin B12 Urine WBC (Auto) Urine Creatinine Crossmatch 04/30/16 04/30/16 04/30/16 04:10 04:10 04:32 WBC 13.8 H RBC 3.54 L Hgb 9.3 L Hct 29.1 L MCV 82 L MCH 26 L MCHC RDW 16.5 H Plt Count 535 H Lymph % (Auto) 7.5 L [place] % (Auto) 13.8 H Lymph # 1.0 L [place] # 1.9 H Baso # Seg Neutrophils % 78.0 H Seg Neuts % (Manual) Lymphocytes % (Manual) Monocytes % (Manual) Seg Neutrophils # 10.7 H Seg Neutrophils # Man Lymphocytes # (Manual) Monocytes # (Manual) Basophils # (Manual) Percent Retic PT INR APTT Heparin Anti-Xa Level POC ABG pH 7.519 H POC ABG pCO2 33.6 L POC ABG pO2 79 L Sodium 146 H Potassium Chloride Carbon Dioxide BUN Creatinine 0.7 L Glucose 242 H POC Glucose Calcium 8.3 L Phosphorus Iron TIBC Lactate Dehydrogenase Total Creatine Kinase NT-Pro-B Natriuret Pep Total Protein Albumin Cbool-6-Rzzjhapui Sousp-8-Gskgnhcjr Beta Globulins PEP Interpretation Cholesterol LDL Cholesterol Direct Vitamin B12 Urine WBC (Auto) Urine Creatinine Crossmatch 04/30/16 04/30/16 04/30/16 05:33 11:23 17:26 WBC RBC Hgb Hct MCV MCH MCHC RDW Plt Count Lymph % (Auto) [place] % (Auto) Lymph # [place] # Baso # Seg Neutrophils % Seg Neuts % (Manual) Lymphocytes % (Manual) Monocytes % (Manual) Seg Neutrophils # Seg Neutrophils # Man Lymphocytes # (Manual) Monocytes # (Manual) Basophils # (Manual) Percent Retic PT INR APTT Heparin Anti-Xa Level POC ABG pH POC ABG pCO2 POC ABG pO2 Sodium Potassium Chloride Carbon Dioxide BUN Creatinine Glucose POC Glucose 242 H 305 H 281 H Calcium Phosphorus Iron TIBC Lactate Dehydrogenase Total Creatine Kinase NT-Pro-B Natriuret Pep Total Protein Albumin Zjuda-2-Hxrhiuplb Cxiow-7-Zqrhlfegf Beta Globulins PEP Interpretation Cholesterol LDL Cholesterol Direct Vitamin B12 Urine WBC (Auto) Urine Creatinine Crossmatch 04/30/16 05/01/16 05/01/16 23:53 04:00 04:00 WBC 15.9 H RBC 2.99 L Hgb 7.9 L Hct 24.4 L MCV 82 L MCH 26 L MCHC RDW 16.9 H Plt Count 481 H Lymph % (Auto) 9.3 L [place] % (Auto) 15.0 H Lymph # [place] # 2.4 H Baso # Seg Neutrophils % 74.9 H Seg Neuts % (Manual) Lymphocytes % (Manual) Monocytes % (Manual) Seg Neutrophils # 11.9 H Seg Neutrophils # Man Lymphocytes # (Manual) Monocytes # (Manual) Basophils # (Manual) Percent Retic PT INR APTT Heparin Anti-Xa Level POC ABG pH POC ABG pCO2 POC ABG pO2 Sodium 147 H Potassium Chloride 107.8 H Carbon Dioxide BUN 22 H Creatinine 0.7 L Glucose 229 H POC Glucose 207 H Calcium 8.2 L Phosphorus Iron TIBC Lactate Dehydrogenase Total Creatine Kinase NT-Pro-B Natriuret Pep Total Protein Albumin Aykmc-7-Lgqvjxntj Ynyyx-4-Zcqtaqdpq Beta Globulins PEP Interpretation Cholesterol LDL Cholesterol Direct Vitamin B12 Urine WBC (Auto) Urine Creatinine Crossmatch 05/01/16 05/01/16 05/01/16 05:12 07:41 12:33 WBC RBC Hgb Hct MCV MCH MCHC RDW Plt Count Lymph % (Auto) [place] % (Auto) Lymph # [place] # Baso # Seg Neutrophils % Seg Neuts % (Manual) Lymphocytes % (Manual) Monocytes % (Manual) Seg Neutrophils # Seg Neutrophils # Man Lymphocytes # (Manual) Monocytes # (Manual) Basophils # (Manual) Percent Retic PT INR APTT Heparin Anti-Xa Level 0.16 L POC ABG pH POC ABG pCO2 POC ABG pO2 Sodium Potassium Chloride Carbon Dioxide BUN Creatinine Glucose POC Glucose 284 H 186 H Calcium Phosphorus Iron TIBC Lactate Dehydrogenase Total Creatine Kinase NT-Pro-B Natriuret Pep Total Protein Albumin Wwgex-3-Qchbsaabd Eodyf-7-Fqradknqn Beta Globulins PEP Interpretation Cholesterol LDL Cholesterol Direct Vitamin B12 Urine WBC (Auto) Urine Creatinine Crossmatch 05/01/16 05/01/16 05/02/16 17:24 23:19 04:48 WBC 17.2 H RBC 3.09 L Hgb 8.1 L Hct 25.5 L MCV 83 L MCH 26 L MCHC RDW 17.3 H Plt Count 507 H Lymph % (Auto) 8.0 L [place] % (Auto) 13.6 H Lymph # [place] # 2.3 H Baso # Seg Neutrophils % 77.5 H Seg Neuts % (Manual) Lymphocytes % (Manual) Monocytes % (Manual) Seg Neutrophils # 13.4 H Seg Neutrophils # Man Lymphocytes # (Manual) Monocytes # (Manual) Basophils # (Manual) Percent Retic PT INR APTT Heparin Anti-Xa Level POC ABG pH POC ABG pCO2 POC ABG pO2 Sodium Potassium Chloride Carbon Dioxide BUN Creatinine Glucose POC Glucose 171 H 132 H Calcium Phosphorus Iron TIBC Lactate Dehydrogenase Total Creatine Kinase NT-Pro-B Natriuret Pep Total Protein Albumin Hyyba-3-Vedtkxlgd Bbkol-3-Dcypaphmr Beta Globulins PEP Interpretation Cholesterol LDL Cholesterol Direct Vitamin B12 Urine WBC (Auto) Urine Creatinine Crossmatch 05/02/16 05/02/16 05/02/16 04:48 04:48 05:42 WBC RBC Hgb Hct MCV MCH MCHC RDW Plt Count Lymph % (Auto) [place] % (Auto) Lymph # [place] # Baso # Seg Neutrophils % Seg Neuts % (Manual) Lymphocytes % (Manual) Monocytes % (Manual) Seg Neutrophils # Seg Neutrophils # Man Lymphocytes # (Manual) Monocytes # (Manual) Basophils # (Manual) Percent Retic PT INR APTT Heparin Anti-Xa Level 0.19 L POC ABG pH POC ABG pCO2 POC ABG pO2 Sodium 149 H Potassium Chloride 109.9 H Carbon Dioxide BUN 24 H Creatinine Glucose 224 H POC Glucose 253 H Calcium 8.2 L Phosphorus Iron TIBC Lactate Dehydrogenase Total Creatine Kinase NT-Pro-B Natriuret Pep Total Protein Albumin Wdqna-3-Tytmhuaaz Wmvir-8-Iapmixxee Beta Globulins PEP Interpretation Cholesterol LDL Cholesterol Direct Vitamin B12 Urine WBC (Auto) Urine Creatinine Crossmatch 05/02/16 05/02/16 05/02/16 12:01 16:40 23:35 WBC RBC Hgb Hct MCV MCH MCHC RDW Plt Count Lymph % (Auto) [place] % (Auto) Lymph # [place] # Baso # Seg Neutrophils % Seg Neuts % (Manual) Lymphocytes % (Manual) Monocytes % (Manual) Seg Neutrophils # Seg Neutrophils # Man Lymphocytes # (Manual) Monocytes # (Manual) Basophils # (Manual) Percent Retic PT INR APTT Heparin Anti-Xa Level POC ABG pH POC ABG pCO2 POC ABG pO2 Sodium Potassium Chloride Carbon Dioxide BUN Creatinine Glucose POC Glucose 197 H 126 H 303 H Calcium Phosphorus Iron TIBC Lactate Dehydrogenase Total Creatine Kinase NT-Pro-B Natriuret Pep Total Protein Albumin Pfxql-0-Ildigjsos Mtszs-5-Uznyfhvrt Beta Globulins PEP Interpretation Cholesterol LDL Cholesterol Direct Vitamin B12 Urine WBC (Auto) Urine Creatinine Crossmatch 05/03/16 05/03/16 05/03/16 04:31 04:31 04:31 WBC 19.1 H RBC 3.15 L Hgb 8.6 L Hct 25.7 L MCV 82 L MCH MCHC RDW 17.4 H Plt Count 525 H Lymph % (Auto) [place] % (Auto) Lymph # [place] # Baso # Seg Neutrophils % Seg Neuts % (Manual) Lymphocytes % (Manual) 10.0 L Monocytes % (Manual) 13.0 H Seg Neutrophils # Seg Neutrophils # Man 13.2 H Lymphocytes # (Manual) Monocytes # (Manual) 2.5 H Basophils # (Manual) 0.2 H Percent Retic PT INR APTT Heparin Anti-Xa Level 0.16 L POC ABG pH POC ABG pCO2 POC ABG pO2 Sodium 151 H Potassium Chloride 112.9 H Carbon Dioxide BUN 24 H Creatinine 0.7 L Glucose 303 H POC Glucose Calcium Phosphorus Iron TIBC Lactate Dehydrogenase Total Creatine Kinase NT-Pro-B Natriuret Pep Total Protein Albumin Vcgfh-0-Wsmrefntn Xudrr-7-Rlqsdulwk Beta Globulins PEP Interpretation Cholesterol LDL Cholesterol Direct Vitamin B12 Urine WBC (Auto) Urine Creatinine Crossmatch 05/03/16 05/03/16 05/04/16 12:08 18:05 00:11 WBC RBC Hgb Hct MCV MCH MCHC RDW Plt Count Lymph % (Auto) [place] % (Auto) Lymph # [place] # Baso # Seg Neutrophils % Seg Neuts % (Manual) Lymphocytes % (Manual) Monocytes % (Manual) Seg Neutrophils # Seg Neutrophils # Man Lymphocytes # (Manual) Monocytes # (Manual) Basophils # (Manual) Percent Retic PT INR APTT Heparin Anti-Xa Level POC ABG pH POC ABG pCO2 POC ABG pO2 Sodium Potassium Chloride Carbon Dioxide BUN Creatinine Glucose POC Glucose 452 H 370 H 374 H Calcium Phosphorus Iron TIBC Lactate Dehydrogenase Total Creatine Kinase NT-Pro-B Natriuret Pep Total Protein Albumin Oioqh-2-Zfkcpqgbs Lvttu-6-Iakiuxglb Beta Globulins PEP Interpretation Cholesterol LDL Cholesterol Direct Vitamin B12 Urine WBC (Auto) Urine Creatinine Crossmatch 05/04/16 05/04/16 05/04/16 04:31 04:31 04:31 WBC 19.8 H RBC 2.90 L Hgb 7.8 L Hct 23.8 L MCV 82 L MCH 27 L MCHC RDW 17.9 H Plt Count 504 H Lymph % (Auto) [place] % (Auto) Lymph # [place] # Baso # Seg Neutrophils % Seg Neuts % (Manual) Lymphocytes % (Manual) 11.0 L Monocytes % (Manual) 8.0 H Seg Neutrophils # Seg Neutrophils # Man 13.3 H Lymphocytes # (Manual) Monocytes # (Manual) 1.6 H Basophils # (Manual) Percent Retic PT INR APTT Heparin Anti-Xa Level 0.15 L POC ABG pH POC ABG pCO2 POC ABG pO2 Sodium 146 H Potassium Chloride Carbon Dioxide BUN 30 H Creatinine 0.7 L Glucose 321 H POC Glucose Calcium 8.3 L Phosphorus Iron TIBC Lactate Dehydrogenase Total Creatine Kinase NT-Pro-B Natriuret Pep Total Protein Albumin Ehuih-3-Ferjmpanh Knlwa-1-Vyoojsvlf Beta Globulins PEP Interpretation Cholesterol LDL Cholesterol Direct Vitamin B12 Urine WBC (Auto) Urine Creatinine Crossmatch 05/04/16 05/04/16 05/04/16 10:20 11:57 17:36 WBC RBC Hgb Hct MCV MCH MCHC RDW Plt Count Lymph % (Auto) [place] % (Auto) Lymph # [place] # Baso # Seg Neutrophils % Seg Neuts % (Manual) Lymphocytes % (Manual) Monocytes % (Manual) Seg Neutrophils # Seg Neutrophils # Man Lymphocytes # (Manual) Monocytes # (Manual) Basophils # (Manual) Percent Retic PT INR APTT Heparin Anti-Xa Level POC ABG pH POC ABG pCO2 POC ABG pO2 Sodium Potassium Chloride Carbon Dioxide BUN Creatinine Glucose POC Glucose 303 H 271 H Calcium Phosphorus Iron TIBC Lactate Dehydrogenase Total Creatine Kinase NT-Pro-B Natriuret Pep Total Protein Albumin Gneac-6-Jvaqzcskr Dxidn-4-Odarwyxot Beta Globulins PEP Interpretation Cholesterol LDL Cholesterol Direct Vitamin B12 Urine WBC (Auto) > 182.0 H Urine Creatinine Crossmatch 05/04/16 05/05/16 05/05/16 23:53 04:13 04:13 WBC 20.9 H RBC 2.92 L Hgb 7.6 L Hct 23.9 L MCV 82 L MCH 26 L MCHC RDW 17.9 H Plt Count 526 H Lymph % (Auto) [place] % (Auto) Lymph # [place] # Baso # Seg Neutrophils % Seg Neuts % (Manual) 93.0 H Lymphocytes % (Manual) 2.0 L Monocytes % (Manual) Seg Neutrophils # Seg Neutrophils # Man 19.4 H Lymphocytes # (Manual) 0.4 L Monocytes # (Manual) Basophils # (Manual) Percent Retic PT INR APTT Heparin Anti-Xa Level POC ABG pH POC ABG pCO2 POC ABG pO2 Sodium 146 H Potassium Chloride Carbon Dioxide BUN 30 H Creatinine 0.7 L Glucose 250 H POC Glucose 235 H Calcium 8.1 L Phosphorus Iron TIBC Lactate Dehydrogenase Total Creatine Kinase NT-Pro-B Natriuret Pep Total Protein Albumin Lyoci-3-Gblrfomju Xtvhb-1-Szdsyncko Beta Globulins PEP Interpretation Cholesterol LDL Cholesterol Direct Vitamin B12 Urine WBC (Auto) Urine Creatinine Crossmatch 05/05/16 05/05/16 05/05/16 05:27 07:36 12:06 WBC RBC Hgb Hct MCV MCH MCHC RDW Plt Count Lymph % (Auto) [place] % (Auto) Lymph # [place] # Baso # Seg Neutrophils % Seg Neuts % (Manual) Lymphocytes % (Manual) Monocytes % (Manual) Seg Neutrophils # Seg Neutrophils # Man Lymphocytes # (Manual) Monocytes # (Manual) Basophils # (Manual) Percent Retic PT INR APTT Heparin Anti-Xa Level < 0.10 L POC ABG pH POC ABG pCO2 POC ABG pO2 Sodium Potassium Chloride Carbon Dioxide BUN Creatinine Glucose POC Glucose 287 H 301 H Calcium Phosphorus Iron TIBC Lactate Dehydrogenase Total Creatine Kinase NT-Pro-B Natriuret Pep Total Protein Albumin Bhmgk-2-Pmelbbout Dccbn-7-Pydxliukw Beta Globulins PEP Interpretation Cholesterol LDL Cholesterol Direct Vitamin B12 Urine WBC (Auto) Urine Creatinine Crossmatch 05/05/16 05/05/16 05/06/16 15:58 17:30 00:10 WBC RBC Hgb Hct MCV MCH MCHC RDW Plt Count Lymph % (Auto) [place] % (Auto) Lymph # [place] # Baso # Seg Neutrophils % Seg Neuts % (Manual) Lymphocytes % (Manual) Monocytes % (Manual) Seg Neutrophils # Seg Neutrophils # Man Lymphocytes # (Manual) Monocytes # (Manual) Basophils # (Manual) Percent Retic PT INR APTT Heparin Anti-Xa Level 0.17 L POC ABG pH POC ABG pCO2 POC ABG pO2 Sodium Potassium Chloride Carbon Dioxide BUN Creatinine Glucose POC Glucose 226 H 161 H Calcium Phosphorus Iron TIBC Lactate Dehydrogenase Total Creatine Kinase NT-Pro-B Natriuret Pep Total Protein Albumin Ahduz-2-Joyfqrula Twbgi-5-Uwpvvwoek Beta Globulins PEP Interpretation Cholesterol LDL Cholesterol Direct Vitamin B12 Urine WBC (Auto) Urine Creatinine Crossmatch 05/06/16 05/06/16 05/06/16 04:23 05:30 05:37 WBC RBC Hgb Hct MCV MCH MCHC RDW Plt Count Lymph % (Auto) [place] % (Auto) Lymph # [place] # Baso # Seg Neutrophils % Seg Neuts % (Manual) Lymphocytes % (Manual) Monocytes % (Manual) Seg Neutrophils # Seg Neutrophils # Man Lymphocytes # (Manual) Monocytes # (Manual) Basophils # (Manual) Percent Retic PT INR APTT Heparin Anti-Xa Level 0.15 L POC ABG pH 7.511 H POC ABG pCO2 POC ABG pO2 Sodium Potassium Chloride Carbon Dioxide BUN Creatinine Glucose POC Glucose 168 H Calcium Phosphorus Iron TIBC Lactate Dehydrogenase Total Creatine Kinase NT-Pro-B Natriuret Pep Total Protein Albumin Zefkq-0-Hrmvdwquo Cerjl-2-Swlafivtu Beta Globulins PEP Interpretation Cholesterol LDL Cholesterol Direct Vitamin B12 Urine WBC (Auto) Urine Creatinine Crossmatch 05/06/16 05/06/16 05/07/16 12:48 17:22 00:04 WBC RBC Hgb Hct MCV MCH MCHC RDW Plt Count Lymph % (Auto) [place] % (Auto) Lymph # [place] # Baso # Seg Neutrophils % Seg Neuts % (Manual) Lymphocytes % (Manual) Monocytes % (Manual) Seg Neutrophils # Seg Neutrophils # Man Lymphocytes # (Manual) Monocytes # (Manual) Basophils # (Manual) Percent Retic PT INR APTT Heparin Anti-Xa Level POC ABG pH POC ABG pCO2 POC ABG pO2 Sodium Potassium Chloride Carbon Dioxide BUN Creatinine Glucose POC Glucose 206 H 160 H 164 H Calcium Phosphorus Iron TIBC Lactate Dehydrogenase Total Creatine Kinase NT-Pro-B Natriuret Pep Total Protein Albumin Ezeok-0-Qrinwzali Hvlat-3-Ljnwlqgjg Beta Globulins PEP Interpretation Cholesterol LDL Cholesterol Direct Vitamin B12 Urine WBC (Auto) Urine Creatinine Crossmatch 05/07/16 05/07/16 05/07/16 04:02 05:50 11:30 WBC RBC Hgb Hct MCV MCH MCHC RDW Plt Count Lymph % (Auto) [place] % (Auto) Lymph # [place] # Baso # Seg Neutrophils % Seg Neuts % (Manual) Lymphocytes % (Manual) Monocytes % (Manual) Seg Neutrophils # Seg Neutrophils # Man Lymphocytes # (Manual) Monocytes # (Manual) Basophils # (Manual) Percent Retic PT INR APTT Heparin Anti-Xa Level 0.15 L POC ABG pH POC ABG pCO2 POC ABG pO2 Sodium Potassium Chloride Carbon Dioxide BUN Creatinine Glucose POC Glucose 177 H 240 H Calcium Phosphorus Iron TIBC Lactate Dehydrogenase Total Creatine Kinase NT-Pro-B Natriuret Pep Total Protein Albumin Fsgxu-3-Qjqfrcohw Muvfp-6-Avhyufert Beta Globulins PEP Interpretation Cholesterol LDL Cholesterol Direct Vitamin B12 Urine WBC (Auto) Urine Creatinine Crossmatch 05/07/16 05/07/16 05/07/16 12:46 17:57 23:54 WBC 20.8 H RBC 2.86 L Hgb 7.6 L Hct 23.3 L MCV 81 L MCH 26 L MCHC RDW 17.9 H Plt Count 559 H Lymph % (Auto) [place] % (Auto) Lymph # [place] # Baso # Seg Neutrophils % Seg Neuts % (Manual) Lymphocytes % (Manual) Monocytes % (Manual) Seg Neutrophils # Seg Neutrophils # Man Lymphocytes # (Manual) Monocytes # (Manual) Basophils # (Manual) Percent Retic PT INR APTT Heparin Anti-Xa Level POC ABG pH POC ABG pCO2 POC ABG pO2 Sodium Potassium Chloride Carbon Dioxide BUN Creatinine Glucose POC Glucose 279 H 201 H Calcium Phosphorus Iron TIBC Lactate Dehydrogenase Total Creatine Kinase NT-Pro-B Natriuret Pep Total Protein Albumin Etqml-9-Ghskvzbnv Gpumn-2-Fmokanjrm Beta Globulins PEP Interpretation Cholesterol LDL Cholesterol Direct Vitamin B12 Urine WBC (Auto) Urine Creatinine Crossmatch 05/08/16 05/08/16 05/08/16 04:04 05:39 12:09 WBC RBC Hgb Hct MCV MCH MCHC RDW Plt Count Lymph % (Auto) [place] % (Auto) Lymph # [place] # Baso # Seg Neutrophils % Seg Neuts % (Manual) Lymphocytes % (Manual) Monocytes % (Manual) Seg Neutrophils # Seg Neutrophils # Man Lymphocytes # (Manual) Monocytes # (Manual) Basophils # (Manual) Percent Retic PT INR APTT Heparin Anti-Xa Level 0.20 L POC ABG pH POC ABG pCO2 POC ABG pO2 Sodium Potassium Chloride Carbon Dioxide BUN Creatinine Glucose POC Glucose 153 H 188 H Calcium Phosphorus Iron TIBC Lactate Dehydrogenase Total Creatine Kinase NT-Pro-B Natriuret Pep Total Protein Albumin Rdfjj-6-Fvgbapkul Fffhv-0-Kfxutbnog Beta Globulins PEP Interpretation Cholesterol LDL Cholesterol Direct Vitamin B12 Urine WBC (Auto) Urine Creatinine Crossmatch 05/08/16 05/08/16 05/08/16 17:44 17:49 18:51 WBC RBC Hgb Hct MCV MCH MCHC RDW Plt Count Lymph % (Auto) [place] % (Auto) Lymph # [place] # Baso # Seg Neutrophils % Seg Neuts % (Manual) Lymphocytes % (Manual) Monocytes % (Manual) Seg Neutrophils # Seg Neutrophils # Man Lymphocytes # (Manual) Monocytes # (Manual) Basophils # (Manual) Percent Retic PT INR APTT Heparin Anti-Xa Level POC ABG pH POC ABG pCO2 POC ABG pO2 Sodium Potassium Chloride Carbon Dioxide BUN Creatinine Glucose POC Glucose 56 L 61 L 135 H Calcium Phosphorus Iron TIBC Lactate Dehydrogenase Total Creatine Kinase NT-Pro-B Natriuret Pep Total Protein Albumin Xmarc-7-Pltiaxavq Insnv-0-Awlwwroka Beta Globulins PEP Interpretation Cholesterol LDL Cholesterol Direct Vitamin B12 Urine WBC (Auto) Urine Creatinine Crossmatch 05/09/16 05/09/16 05/09/16 00:14 04:07 05:18 WBC RBC Hgb Hct MCV MCH MCHC RDW Plt Count Lymph % (Auto) [place] % (Auto) Lymph # [place] # Baso # Seg Neutrophils % Seg Neuts % (Manual) Lymphocytes % (Manual) Monocytes % (Manual) Seg Neutrophils # Seg Neutrophils # Man Lymphocytes # (Manual) Monocytes # (Manual) Basophils # (Manual) Percent Retic PT INR APTT Heparin Anti-Xa Level 0.21 L POC ABG pH POC ABG pCO2 POC ABG pO2 Sodium Potassium Chloride Carbon Dioxide BUN Creatinine Glucose POC Glucose 151 H 215 H Calcium Phosphorus Iron TIBC Lactate Dehydrogenase Total Creatine Kinase NT-Pro-B Natriuret Pep Total Protein Albumin Zqyli-9-Yysppwizo Qxcqk-1-Gpkxokvub Beta Globulins PEP Interpretation Cholesterol LDL Cholesterol Direct Vitamin B12 Urine WBC (Auto) Urine Creatinine Crossmatch 05/09/16 05/09/16 05/09/16 12:27 16:39 17:30 WBC RBC Hgb 6.4 L Hct 20.2 L MCV MCH MCHC RDW Plt Count Lymph % (Auto) [place] % (Auto) Lymph # [place] # Baso # Seg Neutrophils % Seg Neuts % (Manual) Lymphocytes % (Manual) Monocytes % (Manual) Seg Neutrophils # Seg Neutrophils # Man Lymphocytes # (Manual) Monocytes # (Manual) Basophils # (Manual) Percent Retic PT INR APTT Heparin Anti-Xa Level POC ABG pH POC ABG pCO2 POC ABG pO2 Sodium Potassium Chloride Carbon Dioxide BUN Creatinine Glucose POC Glucose 291 H 220 H Calcium Phosphorus Iron TIBC Lactate Dehydrogenase Total Creatine Kinase NT-Pro-B Natriuret Pep Total Protein Albumin Bzuyz-7-Ahnuthllr Nybga-8-Ihzktmwoe Beta Globulins PEP Interpretation Cholesterol LDL Cholesterol Direct Vitamin B12 Urine WBC (Auto) Urine Creatinine Crossmatch 05/09/16 05/09/16 05/10/16 19:47 23:57 03:55 WBC 16.9 H RBC 3.20 L Hgb 8.6 L Hct 26.7 L D MCV 83 L MCH 27 L MCHC RDW 17.5 H Plt Count 488 H Lymph % (Auto) [place] % (Auto) Lymph # [place] # Baso # Seg Neutrophils % Seg Neuts % (Manual) 76.0 H Lymphocytes % (Manual) 9.0 L Monocytes % (Manual) 10.0 H Seg Neutrophils # Seg Neutrophils # Man 12.8 H Lymphocytes # (Manual) Monocytes # (Manual) 1.7 H Basophils # (Manual) Percent Retic PT INR APTT Heparin Anti-Xa Level POC ABG pH POC ABG pCO2 POC ABG pO2 Sodium Potassium Chloride Carbon Dioxide BUN Creatinine Glucose POC Glucose 217 H Calcium Phosphorus Iron TIBC Lactate Dehydrogenase Total Creatine Kinase NT-Pro-B Natriuret Pep Total Protein Albumin Nowgz-3-Uteuitkal Gkinu-4-Nwyfhkvsd Beta Globulins PEP Interpretation Cholesterol LDL Cholesterol Direct Vitamin B12 Urine WBC (Auto) Urine Creatinine Crossmatch See Detail 05/10/16 05/10/16 05/10/16 05:05 11:49 12:54 WBC RBC Hgb 9.1 L Hct 28.2 L MCV MCH MCHC RDW Plt Count Lymph % (Auto) [place] % (Auto) Lymph # [place] # Baso # Seg Neutrophils % Seg Neuts % (Manual) Lymphocytes % (Manual) Monocytes % (Manual) Seg Neutrophils # Seg Neutrophils # Man Lymphocytes # (Manual) Monocytes # (Manual) Basophils # (Manual) Percent Retic PT INR APTT Heparin Anti-Xa Level POC ABG pH POC ABG pCO2 POC ABG pO2 Sodium Potassium Chloride Carbon Dioxide BUN Creatinine Glucose POC Glucose 182 H 237 H Calcium Phosphorus Iron TIBC Lactate Dehydrogenase Total Creatine Kinase NT-Pro-B Natriuret Pep Total Protein Albumin Ydgoh-7-Wydldrbcp Gtukv-5-Mnfkypshk Beta Globulins PEP Interpretation Cholesterol LDL Cholesterol Direct Vitamin B12 Urine WBC (Auto) Urine Creatinine Crossmatch 05/10/16 05/10/16 05/10/16 12:54 17:29 23:07 WBC RBC Hgb Hct MCV MCH MCHC RDW Plt Count Lymph % (Auto) [place] % (Auto) Lymph # [place] # Baso # Seg Neutrophils % Seg Neuts % (Manual) Lymphocytes % (Manual) Monocytes % (Manual) Seg Neutrophils # Seg Neutrophils # Man Lymphocytes # (Manual) Monocytes # (Manual) Basophils # (Manual) Percent Retic PT INR 1.14 H APTT Heparin Anti-Xa Level POC ABG pH POC ABG pCO2 POC ABG pO2 Sodium Potassium Chloride Carbon Dioxide BUN Creatinine Glucose POC Glucose 198 H 172 H Calcium Phosphorus Iron TIBC Lactate Dehydrogenase Total Creatine Kinase NT-Pro-B Natriuret Pep Total Protein Albumin Ekdra-5-Odccoxebs Maapn-1-Ovoorruxw Beta Globulins PEP Interpretation Cholesterol LDL Cholesterol Direct Vitamin B12 Urine WBC (Auto) Urine Creatinine Crossmatch 05/11/16 05/11/16 05/11/16 04:16 04:16 05:13 WBC 16.1 H RBC 3.27 L Hgb 8.8 L Hct 27.7 L MCV MCH 27 L MCHC RDW 17.9 H Plt Count 475 H Lymph % (Auto) 8.9 L [place] % (Auto) 8.0 H Lymph # [place] # 1.3 H Baso # Seg Neutrophils % 81.6 H Seg Neuts % (Manual) Lymphocytes % (Manual) Monocytes % (Manual) Seg Neutrophils # 13.1 H Seg Neutrophils # Man Lymphocytes # (Manual) Monocytes # (Manual) Basophils # (Manual) Percent Retic PT INR APTT Heparin Anti-Xa Level POC ABG pH POC ABG pCO2 POC ABG pO2 Sodium 152 H Potassium Chloride 114.2 H Carbon Dioxide BUN 23 H Creatinine 0.6 L Glucose 166 H POC Glucose 173 H Calcium 8.0 L Phosphorus Iron TIBC Lactate Dehydrogenase Total Creatine Kinase NT-Pro-B Natriuret Pep Total Protein Albumin Mytfx-5-Hicrbsmqi Lqmrx-3-Swuuecuni Beta Globulins PEP Interpretation Cholesterol LDL Cholesterol Direct Vitamin B12 Urine WBC (Auto) Urine Creatinine Crossmatch 05/11/16 05/11/16 05/11/16 11:30 17:20 23:53 WBC RBC Hgb Hct MCV MCH MCHC RDW Plt Count Lymph % (Auto) [place] % (Auto) Lymph # [place] # Baso # Seg Neutrophils % Seg Neuts % (Manual) Lymphocytes % (Manual) Monocytes % (Manual) Seg Neutrophils # Seg Neutrophils # Man Lymphocytes # (Manual) Monocytes # (Manual) Basophils # (Manual) Percent Retic PT INR APTT Heparin Anti-Xa Level POC ABG pH POC ABG pCO2 POC ABG pO2 Sodium Potassium Chloride Carbon Dioxide BUN Creatinine Glucose POC Glucose 192 H 147 H 164 H Calcium Phosphorus Iron TIBC Lactate Dehydrogenase Total Creatine Kinase NT-Pro-B Natriuret Pep Total Protein Albumin Gteyc-4-Zigsdhpyz Lazon-4-Qvkitajit Beta Globulins PEP Interpretation Cholesterol LDL Cholesterol Direct Vitamin B12 Urine WBC (Auto) Urine Creatinine Crossmatch 05/12/16 05/12/16 05/12/16 05:35 07:33 11:01 WBC RBC Hgb 9.2 L Hct 29.2 L MCV MCH MCHC RDW Plt Count 503 H Lymph % (Auto) [place] % (Auto) Lymph # [place] # Baso # Seg Neutrophils % Seg Neuts % (Manual) Lymphocytes % (Manual) Monocytes % (Manual) Seg Neutrophils # Seg Neutrophils # Man Lymphocytes # (Manual) Monocytes # (Manual) Basophils # (Manual) Percent Retic PT INR APTT Heparin Anti-Xa Level POC ABG pH POC ABG pCO2 POC ABG pO2 Sodium 148 H Potassium Chloride 108.5 H Carbon Dioxide BUN Creatinine 0.5 L Glucose 146 H POC Glucose 145 H Calcium 8.2 L Phosphorus Iron TIBC Lactate Dehydrogenase Total Creatine Kinase NT-Pro-B Natriuret Pep Total Protein Albumin Vxwkl-1-Jpfeydgad Nonnn-6-Uvcrvthig Beta Globulins PEP Interpretation Cholesterol LDL Cholesterol Direct Vitamin B12 Urine WBC (Auto) Urine Creatinine Crossmatch 05/12/16 05/12/16 05/12/16 11:44 18:15 19:33 WBC RBC Hgb Hct MCV MCH MCHC RDW Plt Count Lymph % (Auto) [place] % (Auto) Lymph # [place] # Baso # Seg Neutrophils % Seg Neuts % (Manual) Lymphocytes % (Manual) Monocytes % (Manual) Seg Neutrophils # Seg Neutrophils # Man Lymphocytes # (Manual) Monocytes # (Manual) Basophils # (Manual) Percent Retic PT INR APTT Heparin Anti-Xa Level 0.17 L POC ABG pH POC ABG pCO2 POC ABG pO2 Sodium Potassium Chloride Carbon Dioxide BUN Creatinine Glucose POC Glucose 223 H 137 H Calcium Phosphorus Iron TIBC Lactate Dehydrogenase Total Creatine Kinase NT-Pro-B Natriuret Pep Total Protein Albumin Uxgky-1-Ntbyepycv Klbpw-5-Nluupjbdt Beta Globulins PEP Interpretation Cholesterol LDL Cholesterol Direct Vitamin B12 Urine WBC (Auto) Urine Creatinine Crossmatch 05/12/16 05/13/16 05/13/16 23:23 04:45 05:43 WBC 18.1 H RBC 3.26 L Hgb 9.0 L Hct 29.0 L MCV MCH MCHC 31 L RDW 18.3 H Plt Count 467 H Lymph % (Auto) [place] % (Auto) Lymph # [place] # Baso # Seg Neutrophils % Seg Neuts % (Manual) 76.0 H Lymphocytes % (Manual) 11.0 L Monocytes % (Manual) 8.0 H Seg Neutrophils # Seg Neutrophils # Man 13.8 H Lymphocytes # (Manual) Monocytes # (Manual) 1.4 H Basophils # (Manual) 0.2 H Percent Retic PT INR APTT Heparin Anti-Xa Level POC ABG pH POC ABG pCO2 POC ABG pO2 Sodium Potassium Chloride Carbon Dioxide BUN Creatinine Glucose POC Glucose 114 H 136 H Calcium Phosphorus Iron TIBC Lactate Dehydrogenase Total Creatine Kinase NT-Pro-B Natriuret Pep Total Protein Albumin Vkepb-4-Spyghcgbp Tysax-7-Iitsxrkzq Beta Globulins PEP Interpretation Cholesterol LDL Cholesterol Direct Vitamin B12 Urine WBC (Auto) Urine Creatinine Crossmatch 05/13/16 05/13/16 05/13/16 07:04 08:13 11:22 WBC RBC Hgb Hct MCV MCH MCHC RDW Plt Count Lymph % (Auto) [place] % (Auto) Lymph # [place] # Baso # Seg Neutrophils % Seg Neuts % (Manual) Lymphocytes % (Manual) Monocytes % (Manual) Seg Neutrophils # Seg Neutrophils # Man Lymphocytes # (Manual) Monocytes # (Manual) Basophils # (Manual) Percent Retic PT INR APTT Heparin Anti-Xa Level 0.25 L POC ABG pH POC ABG pCO2 POC ABG pO2 Sodium Potassium Chloride 109.1 H Carbon Dioxide BUN Creatinine 0.5 L Glucose 131 H POC Glucose 155 H Calcium 8.1 L Phosphorus Iron TIBC Lactate Dehydrogenase Total Creatine Kinase NT-Pro-B Natriuret Pep Total Protein Albumin Masws-2-Vhekoocpx Oanqr-5-Cmlgquvhw Beta Globulins PEP Interpretation Cholesterol LDL Cholesterol Direct Vitamin B12 Urine WBC (Auto) Urine Creatinine Crossmatch 05/13/16 05/13/16 05/13/16 17:29 17:33 17:59 WBC RBC Hgb Hct MCV MCH MCHC RDW Plt Count Lymph % (Auto) [place] % (Auto) Lymph # [place] # Baso # Seg Neutrophils % Seg Neuts % (Manual) Lymphocytes % (Manual) Monocytes % (Manual) Seg Neutrophils # Seg Neutrophils # Man Lymphocytes # (Manual) Monocytes # (Manual) Basophils # (Manual) Percent Retic PT INR APTT Heparin Anti-Xa Level POC ABG pH POC ABG pCO2 POC ABG pO2 Sodium Potassium Chloride Carbon Dioxide BUN Creatinine Glucose POC Glucose 46 L < 40 L 152 H Calcium Phosphorus Iron TIBC Lactate Dehydrogenase Total Creatine Kinase NT-Pro-B Natriuret Pep Total Protein Albumin Rzvqz-8-Gvsditocn Qersn-6-Oebgdfecp Beta Globulins PEP Interpretation Cholesterol LDL Cholesterol Direct Vitamin B12 Urine WBC (Auto) Urine Creatinine Crossmatch 05/13/16 05/14/16 05/14/16 18:06 04:31 04:31 WBC 18.0 H RBC Hgb 10.2 L Hct 32.6 L MCV MCH 27 L MCHC 31 L RDW 17.5 H Plt Count 576 H Lymph % (Auto) 8.9 L [place] % (Auto) 9.3 H Lymph # [place] # 1.7 H Baso # Seg Neutrophils % 80.5 H Seg Neuts % (Manual) Lymphocytes % (Manual) Monocytes % (Manual) Seg Neutrophils # 14.5 H Seg Neutrophils # Man Lymphocytes # (Manual) Monocytes # (Manual) Basophils # (Manual) Percent Retic PT INR APTT Heparin Anti-Xa Level < 0.10 L POC ABG pH POC ABG pCO2 POC ABG pO2 Sodium Potassium Chloride Carbon Dioxide BUN Creatinine 0.6 L Glucose POC Glucose Calcium Phosphorus Iron TIBC Lactate Dehydrogenase Total Creatine Kinase NT-Pro-B Natriuret Pep Total Protein Albumin Cmsbj-4-Rgpoumumg Rcfpt-2-Jqtfehsxs Beta Globulins PEP Interpretation Cholesterol LDL Cholesterol Direct Vitamin B12 Urine WBC (Auto) Urine Creatinine Crossmatch 05/14/16 05/14/16 05/14/16 05:50 11:47 17:45 WBC RBC Hgb Hct MCV MCH MCHC RDW Plt Count Lymph % (Auto) [place] % (Auto) Lymph # [place] # Baso # Seg Neutrophils % Seg Neuts % (Manual) Lymphocytes % (Manual) Monocytes % (Manual) Seg Neutrophils # Seg Neutrophils # Man Lymphocytes # (Manual) Monocytes # (Manual) Basophils # (Manual) Percent Retic PT INR APTT Heparin Anti-Xa Level POC ABG pH POC ABG pCO2 POC ABG pO2 Sodium Potassium Chloride Carbon Dioxide BUN Creatinine Glucose POC Glucose 136 H 232 H 220 H Calcium Phosphorus Iron TIBC Lactate Dehydrogenase Total Creatine Kinase NT-Pro-B Natriuret Pep Total Protein Albumin Ksxat-7-Ybcbzumtc Zsrgl-4-Qvgxmpmxd Beta Globulins PEP Interpretation Cholesterol LDL Cholesterol Direct Vitamin B12 Urine WBC (Auto) Urine Creatinine Crossmatch 05/14/16 05/15/16 05/15/16 22:57 04:37 04:37 WBC 16.4 H RBC 3.54 L Hgb 9.3 L Hct 29.4 L MCV 83 L MCH 26 L MCHC RDW 17.7 H Plt Count 586 H Lymph % (Auto) 6.7 L [place] % (Auto) 8.3 H Lymph # 1.1 L [place] # 1.4 H Baso # Seg Neutrophils % 83.7 H Seg Neuts % (Manual) Lymphocytes % (Manual) Monocytes % (Manual) Seg Neutrophils # 13.7 H Seg Neutrophils # Man Lymphocytes # (Manual) Monocytes # (Manual) Basophils # (Manual) Percent Retic PT INR APTT Heparin Anti-Xa Level POC ABG pH POC ABG pCO2 POC ABG pO2 Sodium Potassium Chloride Carbon Dioxide BUN Creatinine 0.6 L Glucose 220 H POC Glucose 265 H Calcium Phosphorus Iron TIBC Lactate Dehydrogenase Total Creatine Kinase NT-Pro-B Natriuret Pep Total Protein Albumin Dcjzp-4-Xxydyjkrg Vxgiq-9-Uozxodsxx Beta Globulins PEP Interpretation Cholesterol LDL Cholesterol Direct Vitamin B12 Urine WBC (Auto) Urine Creatinine Crossmatch
[2016-05-16] MEDS: NOVOLOG SUB-Q SCH ×5 (00:30→23:51)
[2016-05-16] MEDS: DUONEB 0.5 MG-3 MG/3 ML SOLN IH SCH ×4 (01:30→19:54)
[2016-05-16 04:52] LABS: Basophils % (Auto) 0.4 % (0.0-1.8); Eosinophils % (Auto) 0.6 % (0.0-4.3); Hematocrit 30.2 % (35.5-45.6); Hemoglobin 9.4 gm/dl (11.8-15.2); Mean Corpuscular HGB Conc 31 % (32-34); Mean Corpuscular Hemoglobin 26 pg (28-32); Mean Corpuscular Volume 84 fl (84-94); Platelet Count 563 K/mm3 (140-440); Red Blood Count 3.61 M/mm3 (3.65-5.03); White Blood Count 15.4 K/mm3 (4.5-11.0)
[2016-05-16 05:10] LABS: Blood Urea Nitrogen 21 mg/dL (9-20); Calcium 8.5 mg/dL (8.4-10.2); Carbon Dioxide 26 mmol/L (22-30); Chloride 108.2 mmol/L (98-107); Glucose 162 mg/dL (75-100); Sodium 147 mmol/L (137-145)
[2016-05-16 05:21] LABS: Anion Gap 17 mmol/L
[2016-05-16] MEDS: ZOSYN/NS 4.5GM/100ML 100 ML IV SCH ×4 (05:29→23:25)
[2016-05-16 06:56] LABS: ISTAT Base Excess 3; ISTAT HCO3 25.9; ISTAT PCO2 33.9 (35-45); ISTAT PH 7.491 (7.35-7.45); ISTAT PO2 88 (80-105); ISTAT SO2 98; ISTAT TCO2 27
[2016-05-16] MEDS: NORMODYNE PO SCH ×3 (09:18→23:23)
[2016-05-16] MEDS: LEVEMIR SUB-Q SCH (11:52)
[2016-05-16] MEDS: PEPCID PO SCH ×2 (11:53→23:26)
[2016-05-16] MEDS: KEPPRA PO SCH ×2 (11:53→23:25)
[2016-05-16] MEDS: ZESTRIL PO SCH ×2 (11:53→23:26)
[2016-05-16] MEDS: NORVASC PO SCH (11:53)
[2016-05-16] MEDS: CORDARONE PO SCH (11:54)
--- NOTE | 2016-05-16 12:06 | Progress Note ---
Assessment and Plan Assessment and plan: 1. Acute respiratory failure. Patient reintubated on 04/17/16. Continue mechanical ventilation per pulmonary. Tracheostomy on 04/29/16. Continue T piece as tolerated. 2. Acute CVA. CT scan revealed acute ischemic infarct in the right cerebellum. MRI reveals subacute infarct in the right cerebellar hemisphere with associated edema and mass effect as previously described. Patient also with multiple areas of acute infarct in the left occipital and frontal lobes that are most likely embolic. LIZZIE done- No thrombus but decreased flow. Cardiology recommends anticoagulation with Coumadin. 3. Hypotension. Resolved. Patient currently off pressors. Echocardiogram revealed EF of 50-55%. 4. Encephalopathy. EEG normal. Etiology likely secondary to CVA +/- hypertension. 5. UTI-continue Zosyn for now. 6. Accelerated hypertension. Continue antihypertensive medications 7. CAD-stable 8. Seizures-continue Keppra. EEG normal. 9. Type 2 diabetes mellitus. Glycemic control. 10. History of aortic dissection status post repair. 11. History of prosthetic aortic valve replacement. Echo with normal function on 08/2015. Heparin on hold secondary to trach site bleeding. 12. DVT prophylaxis. Heparin drip on hold. 13. GI prophylaxis-Pepcid 14. Oropharyngeal dysphagia. Patient failed swallow evaluation. Status post PEG placement on 04/17. 15. Anemia. Monitor H&H closely. 16. Hypernatremia. Resolved. Continue free water. 17. Tracheostomy site bleeding. We will hold heparin for now and monitor. Surgery following. 18. Neck Cellulitis. Continue Zosyn. History Interval history: 60 years old -[place] male with nonobstructive CAD per recent CAD, hypertension, hyperlipidemia, bioprosthetic aortic valve replacement, chronic kidney disease, diabetes and seizure disorder who was initially admitted for metabolic encephalopathy with hypernatremia. Patient developed respiratory failure during this hospitalization on 03/27 and was intubated placed on mechanical ventilation. Patient was later extubated during his hospitalization but was reintubated on the evening of 04/16/16. Patient now remains intubated on mechanical ventilation. Patient is also status post PEG tube placement on . Patient remains on mechanical ventilation. Patient status post tracheostomy on 04/29/16. Nursing staff reported that there was slight bleeding at trachesotomy site when heparin drip was turned on. Trach bleeding has stopped. Hospitalist Physical - Constitutional Vitals: Temp Pulse Resp BP Pulse Ox 98.8 F 85 32 H 127/73 100 05/16/16 07:41 05/16/16 11:53 05/16/16 11:00 05/16/16 11:53 05/16/16 10:00 General appearance: Present: no acute distress, other (tracheostomy) - EENT Eyes: Present: PERRL, EOM intact ENT: hearing intact, clear oral mucosa, dentition normal - Neck Neck: Present: supple, normal ROM - Respiratory Respiratory effort: normal Respiratory: bilateral: CTA - Cardiovascular Rhythm: regular Heart Sounds: Present: S1 & S2. Absent: gallop, rub - Extremities Extremities: no ischemia, No edema, Full ROM - Abdominal General gastrointestinal: soft, non-tender, non-distended, normal bowel sounds - Integumentary Integumentary: Present: clear, warm, dry - Neurologic Neurologic: CNII-XII intact, moves all extremities Results - Labs CBC & Chem 7: 05/16/16 04:13 05/16/16 04:13 Labs: Laboratory Last Values WBC 15.4 K/mm3 (4.5-11.0) H 05/16/16 04:13 RBC 3.61 M/mm3 (3.65-5.03) L 05/16/16 04:13 Hgb 9.4 gm/dl (11.8-15.2) L 05/16/16 04:13 Hct 30.2 % (35.5-45.6) L 05/16/16 04:13 MCV 84 fl (84-94) 05/16/16 04:13 MCH 26 pg (28-32) L 05/16/16 04:13 MCHC 31 % (32-34) L 05/16/16 04:13 RDW 18.0 % (13.2-15.2) H 05/16/16 04:13 Plt Count 563 K/mm3 (140-440) H 05/16/16 04:13 Lymph % (Auto) 9.3 % (13.4-35.0) L 05/16/16 04:13 Hawkins % (Auto) 10.1 % (0.0-7.3) H 05/16/16 04:13 Eos % (Auto) 0.6 % (0.0-4.3) 05/16/16 04:13 Baso % (Auto) 0.4 % (0.0-1.8) 05/16/16 04:13 Lymph # 1.4 K/mm3 (1.2-5.4) 05/16/16 04:13 Hawkins # 1.6 K/mm3 (0.0-0.8) H 05/16/16 04:13 Eos # 0.1 K/mm3 (0.0-0.4) 05/16/16 04:13 Baso # 0.1 K/mm3 (0.0-0.1) 05/16/16 04:13 Add Manual Diff Complete 05/13/16 04:45 Total Counted 100 05/13/16 04:45 Seg Neutrophils % 79.6 % (40.0-70.0) H 05/16/16 04:13 Seg Neuts % (Manual) 76.0 % (40.0-70.0) H 05/13/16 04:45 Band Neutrophils % 3.0 % 05/13/16 04:45 Lymphocytes % (Manual) 11.0 % (13.4-35.0) L 05/13/16 04:45 Reactive Lymphs % (Man) 0 % 05/13/16 04:45 Monocytes % (Manual) 8.0 % (0.0-7.3) H 05/13/16 04:45 Eosinophils % (Manual) 1.0 % (0.0-4.3) 05/13/16 04:45 Basophils % (Manual) 1.0 % (0.0-1.8) 05/13/16 04:45 Metamyelocytes % 0 % 05/13/16 04:45 Myelocytes % 0 % 05/13/16 04:45 Promyelocytes % 0 % 05/13/16 04:45 Blast Cells % 0 % 05/13/16 04:45 Nucleated RBC % Not Reportable 05/13/16 04:45 Seg Neutrophils # 12.3 K/mm3 (1.8-7.7) H 05/16/16 04:13 Seg Neutrophils # Man 13.8 K/mm3 (1.8-7.7) H 05/13/16 04:45 Band Neutrophils # 0.5 K/mm3 05/13/16 04:45 Lymphocytes # (Manual) 2.0 K/mm3 (1.2-5.4) 05/13/16 04:45 Abs React Lymphs (Man) 0.0 K/mm3 05/13/16 04:45 Monocytes # (Manual) 1.4 K/mm3 (0.0-0.8) H 05/13/16 04:45 Eosinophils # (Manual) 0.2 K/mm3 (0.0-0.4) 05/13/16 04:45 Basophils # (Manual) 0.2 K/mm3 (0.0-0.1) H 05/13/16 04:45 Metamyelocytes # 0.0 K/mm3 05/13/16 04:45 Myelocytes # 0.0 K/mm3 05/13/16 04:45 Promyelocytes # 0.0 K/mm3 05/13/16 04:45 Blast Cells # 0.0 K/mm3 05/13/16 04:45 WBC Morphology Not Reportable 05/13/16 04:45 Hypersegmented Neuts Not Reportable 05/13/16 04:45 Hyposegmented Neuts Not Reportable 05/13/16 04:45 Hypogranular Neuts Not Reportable 05/13/16 04:45 Smudge Cells Not Reportable 05/13/16 04:45 Toxic Granulation Not Reportable 05/13/16 04:45 Toxic Vacuolation Not Reportable 05/13/16 04:45 Dohle Bodies Not Reportable 05/13/16 04:45 Pelger-Huet Anomaly Not Reportable 05/13/16 04:45 Corina Rods Not Reportable 05/13/16 04:45 Platelet Estimate Consistent w auto 05/13/16 04:45 Clumped Platelets Not Reportable 05/13/16 04:45 Plt Clumps, EDTA Not Reportable 05/13/16 04:45 Large Platelets Not Reportable 05/13/16 04:45 Giant Platelets Not Reportable 05/13/16 04:45 Platelet Satelliting Not Reportable 05/13/16 04:45 Plt Morphology Comment Not Reportable 05/13/16 04:45 RBC Morphology Not Reportable 05/13/16 04:45 Dimorphic RBCs Not Reportable 05/13/16 04:45 Polychromasia Rare 05/13/16 04:45 Hypochromasia Not Reportable 05/13/16 04:45 Poikilocytosis Not Reportable 05/13/16 04:45 Anisocytosis 1+ 05/13/16 04:45 Microcytosis Not Reportable 05/13/16 04:45 Macrocytosis Rare 05/13/16 04:45 Spherocytes Not Reportable 05/13/16 04:45 Pappenheimer Bodies Not Reportable 05/13/16 04:45 Sickle Cells Not Reportable 05/13/16 04:45 Target Cells Not Reportable 05/13/16 04:45 Tear Drop Cells Not Reportable 05/13/16 04:45 Ovalocytes Not Reportable 05/13/16 04:45 Helmet Cells Not Reportable 05/13/16 04:45 [place] Bodies Not Reportable 05/13/16 04:45 [place] Rings Not Reportable 05/13/16 04:45 Mcfarlan Cells Not Reportable 05/13/16 04:45 Bite Cells Not Reportable 05/13/16 04:45 Crenated Cell Not Reportable 05/13/16 04:45 Elliptocytes Not Reportable 05/13/16 04:45 Acanthocytes (Spur) Not Reportable 05/13/16 04:45 Rouleaux Not Reportable 05/13/16 04:45 Hemoglobin C Crystals Not Reportable 05/13/16 04:45 Schistocytes Not Reportable 05/13/16 04:45 Malaria parasites Not Reportable 05/13/16 04:45 Percent Retic 3.68 % (0.78-2.58) H 04/29/16 10:16 Gideon Bodies Not Reportable 05/13/16 04:45 Hem Pathologist Commnt No 05/13/16 04:45 PT 13.8 Sec. (12.2-14.9) 05/12/16 11:01 INR 1.07 (0.87-1.13) 05/12/16 11:01 APTT 27.2 Sec. (24.2-36.6) 05/12/16 11:01 Heparin Anti-Xa Level < 0.10 U.I./ml (0.3-0.7) L 05/13/16 18:06 POC ABG pH 7.491 (7.35-7.45) H 05/16/16 04:29 POC ABG pCO2 33.9 (35-45) L 05/16/16 04:29 POC ABG pO2 88 (80-105) 05/16/16 04:29 POC ABG HCO3 25.9 05/16/16 04:29 POC ABG Total CO2 27 05/16/16 04:29 POC ABG O2 Sat 98 05/16/16 04:29 POC ABG Base Excess 3 05/16/16 04:29 VBG pH 7.418 (7.320-7.420) 03/24/16 14:00 FiO2 25 % 05/16/16 04:29 Sodium 147 mmol/L (137-145) H 05/16/16 04:13 Potassium 4.0 mmol/L (3.6-5.0) 05/16/16 04:13 Chloride 108.2 mmol/L (98-107) H 05/16/16 04:13 Carbon Dioxide 26 mmol/L (22-30) 05/16/16 04:13 Anion Gap 17 mmol/L 05/16/16 04:13 BUN 21 mg/dL (9-20) H 05/16/16 04:13 Creatinine 0.6 mg/dL (0.8-1.5) L 05/16/16 04:13 Estimated GFR > 60 ml/min 05/16/16 04:13 BUN/Creatinine Ratio 35.00 % 05/16/16 04:13 Glucose 162 mg/dL (75-100) H 05/16/16 04:13 POC Glucose 197 (70-105) H 05/16/16 11:40 Hemoglobin A1c 9.6 % (4-6) H 03/24/16 14:00 Lactic Acid 1.6 mmol/L (0.7-2.0) 04/17/16 12:17 Calcium 8.5 mg/dL (8.4-10.2) 05/16/16 04:13 Phosphorus 3.1 mg/dL (2.5-4.5) 05/11/16 04:16 Magnesium 2.3 mg/dL (1.7-2.3) 05/11/16 04:16 Iron 10 ug/dL (49-181) L 04/29/16 10:16 TIBC 138 mcg/dL (250-450) L 04/29/16 10:16 Ferritin 336.4 ng/mL (13.0-400.0) 04/29/16 10:16 Total Bilirubin < 0.2 mg/dL (0.1-1.2) 04/27/16 04:21 AST 18 units/L (5-40) 04/27/16 04:21 ALT 39 units/L (7-56) 04/27/16 04:21 Alkaline Phosphatase 103 units/L (35-129) 04/27/16 04:21 Lactate Dehydrogenase 204 units/L (91-180) H 04/29/16 10:16 Total Creatine Kinase 356 units/L (55-170) H 03/28/16 13:29 Troponin T < 0.010 ng/mL (0.00-0.029) 03/28/16 13:29 NT-Pro-B Natriuret Pep 897.9 pg/mL (0-900) 04/03/16 04:10 Serum Total Protein 7.1 g/dL (6.1-8.1) 03/25/16 13:00 Total Protein 6.0 g/dL (6.3-8.2) L 04/27/16 04:21 Albumin 2.0 g/dL (3.9-5) L 04/27/16 04:21 Albumin/Globulin Ratio 0.5 % 04/27/16 04:21 Kajps-2-Smzozaibt See scanned report 03/31/16 12:20 Jiitp-3-Ieqkboboe See scanned report 03/31/16 12:20 Beta Globulins See scanned report 03/31/16 12:20 Eune-5-Zbdqvvdyfgxet 2.46 mg/L (<=2.51) 03/25/16 13:00 Gamma Globulins See scanned report 03/31/16 12:20 Abnorm Protein Band 1 see below (()) 03/25/16 13:00 PEP Interpretation See scanned report 03/31/16 12:20 Triglycerides 88 mg/dL (2-149) 03/24/16 17:58 Cholesterol 221 mg/dL (50-199) H 03/24/16 17:58 LDL Cholesterol Direct 146 mg/dL (50-130) H 03/24/16 17:58 HDL Cholesterol 58 mg/dL (40-59) 03/24/16 17:58 Cholesterol/HDL Ratio 3.81 % 03/24/16 17:58 Vitamin B12 1005 pg/mL (211-911) H 04/29/16 10:16 Folate 12.78 ng/mL (7.3-26.0) 04/29/16 10:16 Urine Color Yellow (Yellow) 05/04/16 10:20 Urine Turbidity Cloudy (Clear) 05/04/16 10:20 Urine pH 5.0 (5.0-7.0) 05/04/16 10:20 Ur Specific [place] 1.017 (1.003-1.030) 05/04/16 10:20 Urine Protein 100 mg/dl mg/dL (Negative) 05/04/16 10:20 Urine Glucose (UA) >=500 mg/dL (Negative) 05/04/16 10:20 Urine Ketones Neg mg/dL (Negative) 05/04/16 10:20 Urine Blood Sm (Negative) 05/04/16 10:20 Urine Nitrite Neg (Negative) 05/04/16 10:20 Urine Bilirubin Neg (Negative) 05/04/16 10:20 Urine Urobilinogen 2.0 mg/dL (<2.0) 05/04/16 10:20 Ur Leukocyte Esterase Lg (Negative) 05/04/16 10:20 Urine WBC (Auto) > 182.0 /HPF (0.0-6.0) H 05/04/16 10:20 Urine RBC (Auto) 13.0 /HPF (0.0-6.0) 05/04/16 10:20 U Epithel Cells (Auto) < 1.0 /HPF (0-13.0) 05/04/16 10:20 Urine Bacteria (Auto) 1+ /HPF (Negative) 05/04/16 10:20 Urine WBC Clumps 3+ /HPF 05/04/16 10:20 Hyaline Casts 1 /LPF 03/24/16 14:27 Urine Mucus Few /HPF 05/04/16 10:20 Urine Yeast (Budding) 1+ /HPF 05/04/16 10:20 Ur Random Creatinine See scanned report 03/31/16 12:20 U Random Total Protein See scanned report 03/31/16 12:20 Urine Creatinine 85.5 mg/dL (0.1-20.0) H 04/20/16 11:50 Protein/Creatinin Ratio See scanned report 03/31/16 12:20 Urine Sodium 17 mEq/L 04/20/16 11:50 U Abnormal Prot Band 1 See scanned report 03/31/16 12:20 U Abnormal Prot Band 2 See scanned report 03/31/16 12:20 U Abnormal Prot Band 3 See scanned report 03/31/16 12:20 Ketones 1.0 mg/dL (0.2-2.8) 03/24/16 14:00 Blood Type A POSITIVE 05/09/16 19:47 Antibody Screen Negative 05/09/16 19:47 Crossmatch See Detail 05/09/16 19:47
--- NOTE | 2016-05-16 12:21 | Progress Note ---
Assessment and Plan Acute respiratory failure. Stroke.unchanged. AMS. HTN Elevated blood sugar. Prosthetic aortic valve Recommendations SBT. Continue monitoring Critical care time was 31 minutes in [facility] evaluation and coordination of care. No family members available at the bedside Subjective Date of service: 05/16/16 Principal diagnosis: CVA, acute respiratory failure Interval history: Patient nonverbal Objective Vital Signs - 12hr 05/16/16 05/16/16 05/16/16 01:00 01:30 01:41 Temperature Pulse Rate 80 Pulse Rate [ 81 84 Anterior Bilateral Throughout] Pulse Rate [ Bilateral] Respiratory 20 Rate Respiratory 20 16 Rate [Anterior Bilateral Throughout] Respiratory Rate [Bilateral ] Blood Pressure 113/69 O2 Sat by Pulse 98 Oximetry O2 Sat by Pulse Oximetry [ Assessment] 05/16/16 05/16/16 05/16/16 02:00 02:11 03:00 Temperature Pulse Rate 81 84 Pulse Rate [ Anterior Bilateral Throughout] Pulse Rate [ Bilateral] Respiratory 20 17 Rate Respiratory Rate [Anterior Bilateral Throughout] Respiratory Rate [Bilateral ] Blood Pressure 117/71 124/73 O2 Sat by Pulse 98 97 Oximetry O2 Sat by Pulse 100 Oximetry [ Assessment] 05/16/16 05/16/16 05/16/16 03:44 04:00 05:00 Temperature 99.1 F Pulse Rate 85 85 85 Pulse Rate [ Anterior Bilateral Throughout] Pulse Rate [ Bilateral] Respiratory 16 12 Rate Respiratory Rate [Anterior Bilateral Throughout] Respiratory Rate [Bilateral ] Blood Pressure 124/73 128/75 127/75 O2 Sat by Pulse 100 100 100 Oximetry O2 Sat by Pulse Oximetry [ Assessment] 05/16/16 05/16/16 05/16/16 05:05 06:00 07:00 Temperature Pulse Rate 86 85 87 Pulse Rate [ Anterior Bilateral Throughout] Pulse Rate [ Bilateral] Respiratory 12 16 18 Rate Respiratory Rate [Anterior Bilateral Throughout] Respiratory Rate [Bilateral ] Blood Pressure 127/75 138/82 137/79 O2 Sat by Pulse 100 100 99 Oximetry O2 Sat by Pulse Oximetry [ Assessment] 05/16/16 05/16/16 05/16/16 07:41 07:45 07:53 Temperature 98.8 F Pulse Rate 86 Pulse Rate [ Anterior Bilateral Throughout] Pulse Rate [ 92 H Bilateral] Respiratory 24 Rate Respiratory Rate [Anterior Bilateral Throughout] Respiratory 26 H Rate [Bilateral ] Blood Pressure 137/79 O2 Sat by Pulse 100 Oximetry O2 Sat by Pulse Oximetry [ Assessment] 05/16/16 05/16/16 05/16/16 08:00 08:06 08:07 Temperature Pulse Rate 90 Pulse Rate [ Anterior Bilateral Throughout] Pulse Rate [ 90 Bilateral] Respiratory 38 H Rate Respiratory Rate [Anterior Bilateral Throughout] Respiratory 24 Rate [Bilateral ] Blood Pressure 143/82 O2 Sat by Pulse 100 100 Oximetry O2 Sat by Pulse Oximetry [ Assessment] 05/16/16 05/16/16 05/16/16 09:00 09:10 09:18 Temperature Pulse Rate 88 95 H 90 Pulse Rate [ Anterior Bilateral Throughout] Pulse Rate [ Bilateral] Respiratory 35 H 41 H Rate Respiratory Rate [Anterior Bilateral Throughout] Respiratory Rate [Bilateral ] Blood Pressure 142/84 124/73 142/84 O2 Sat by Pulse 100 100 Oximetry O2 Sat by Pulse Oximetry [ Assessment] 05/16/16 05/16/16 05/16/16 10:00 11:00 11:53 Temperature Pulse Rate 82 84 85 Pulse Rate [ Anterior Bilateral Throughout] Pulse Rate [ Bilateral] Respiratory 35 H 32 H Rate Respiratory Rate [Anterior Bilateral Throughout] Respiratory Rate [Bilateral ] Blood Pressure 129/76 127/73 127/73 O2 Sat by Pulse 100 Oximetry O2 Sat by Pulse Oximetry [ Assessment] Constitutional: no acute distress, other (opens eyes, not following commands for me) Eyes: non-icteric ENT: other (tracheotomy) Neck: supple, other (no bleeding at trach site) Effort: normal Ascultation: Bilateral: clear, rhonchi (occasional), other (coarse BS bilaterally) Percussion: Bilateral: not dull Cardiovascular: regular rate and rhythm (3/6 murmur systolic) Gastrointestinal: normoactive bowel sounds, soft, non-tender Extremities: no cyanosis, no edema Neurologic: other (eyes open, not following commands ) Psychiatric: other (unable to assess) CBC and BMP: 05/16/16 04:13 05/16/16 04:13 ABG, PT/INR, D-dimer: ABG POC ABG pH 7.491 (7.35-7.45) H 05/16/16 04:29 POC ABG pCO2 33.9 (35-45) L 05/16/16 04:29 POC ABG pO2 88 (80-105) 05/16/16 04:29 POC ABG HCO3 25.9 05/16/16 04:29 POC ABG Total CO2 27 05/16/16 04:29 POC ABG O2 Sat 98 05/16/16 04:29 PT/INR, D-dimer PT 13.8 Sec. (12.2-14.9) 05/12/16 11:01 INR 1.07 (0.87-1.13) 05/12/16 11:01 Abnormal lab findings: Abnormal Labs 03/24/16 03/24/16 03/24/16 17:58 20:25 23:23 WBC RBC Hgb Hct MCV MCH MCHC RDW Plt Count Lymph % (Auto) [place] % (Auto) Lymph # [place] # Baso # Seg Neutrophils % Seg Neuts % (Manual) Lymphocytes % (Manual) Monocytes % (Manual) Seg Neutrophils # Seg Neutrophils # Man Lymphocytes # (Manual) Monocytes # (Manual) Basophils # (Manual) Percent Retic PT INR APTT Heparin Anti-Xa Level POC ABG pH POC ABG pCO2 POC ABG pO2 Sodium 169 H* Potassium 3.5 L Chloride 130.3 H Carbon Dioxide BUN 28 H Creatinine 1.8 H Glucose POC Glucose 112 H Calcium Phosphorus Iron TIBC Lactate Dehydrogenase Total Creatine Kinase NT-Pro-B Natriuret Pep Total Protein Albumin Mzrpf-6-Teorykpyf Xfovu-7-Wbooyiyyv Beta Globulins PEP Interpretation Cholesterol 221 H LDL Cholesterol Direct 146 H Vitamin B12 Urine WBC (Auto) Urine Creatinine Crossmatch 03/25/16 03/25/16 03/25/16 05:56 05:56 05:56 WBC 21.3 H RBC 6.32 H Hgb 16.7 H Hct 52.7 H MCV 83 L MCH 27 L MCHC RDW Plt Count Lymph % (Auto) [place] % (Auto) Lymph # [place] # Baso # Seg Neutrophils % Seg Neuts % (Manual) 91.0 H Lymphocytes % (Manual) 4.0 L Monocytes % (Manual) Seg Neutrophils # Seg Neutrophils # Man 19.4 H Lymphocytes # (Manual) 0.9 L Monocytes # (Manual) 0.9 H Basophils # (Manual) Percent Retic PT INR APTT Heparin Anti-Xa Level POC ABG pH POC ABG pCO2 POC ABG pO2 Sodium 172 H* Potassium 3.5 L Chloride 130.4 H Carbon Dioxide BUN 29 H Creatinine 1.8 H Glucose 187 H POC Glucose Calcium Phosphorus Iron TIBC Lactate Dehydrogenase 460 H Total Creatine Kinase NT-Pro-B Natriuret Pep Total Protein Albumin Josnp-5-Cianeskjp Ebfwk-8-Bkpagfohq Beta Globulins PEP Interpretation Cholesterol LDL Cholesterol Direct Vitamin B12 Urine WBC (Auto) Urine Creatinine Crossmatch 03/25/16 03/25/16 03/25/16 07:55 12:19 13:00 WBC RBC Hgb Hct MCV MCH MCHC RDW Plt Count Lymph % (Auto) [place] % (Auto) Lymph # [place] # Baso # Seg Neutrophils % Seg Neuts % (Manual) Lymphocytes % (Manual) Monocytes % (Manual) Seg Neutrophils # Seg Neutrophils # Man Lymphocytes # (Manual) Monocytes # (Manual) Basophils # (Manual) Percent Retic PT INR APTT Heparin Anti-Xa Level POC ABG pH POC ABG pCO2 POC ABG pO2 Sodium Potassium Chloride Carbon Dioxide BUN Creatinine Glucose POC Glucose 231 H 314 H Calcium Phosphorus Iron TIBC Lactate Dehydrogenase Total Creatine Kinase NT-Pro-B Natriuret Pep Total Protein Albumin 3.4 L Jlkhg-5-Bwgmozhrk 0.4 H Lxarp-3-Vjxmnmjtc 1.1 H Beta Globulins 0.6 H PEP Interpretation see below H Cholesterol LDL Cholesterol Direct Vitamin B12 Urine WBC (Auto) Urine Creatinine Crossmatch 03/25/16 03/25/16 03/26/16 16:41 22:45 08:32 WBC RBC Hgb Hct MCV MCH MCHC RDW Plt Count Lymph % (Auto) [place] % (Auto) Lymph # [place] # Baso # Seg Neutrophils % Seg Neuts % (Manual) Lymphocytes % (Manual) Monocytes % (Manual) Seg Neutrophils # Seg Neutrophils # Man Lymphocytes # (Manual) Monocytes # (Manual) Basophils # (Manual) Percent Retic PT INR APTT Heparin Anti-Xa Level POC ABG pH POC ABG pCO2 POC ABG pO2 Sodium Potassium Chloride Carbon Dioxide BUN Creatinine Glucose POC Glucose 444 H 326 H 360 H Calcium Phosphorus Iron TIBC Lactate Dehydrogenase Total Creatine Kinase NT-Pro-B Natriuret Pep Total Protein Albumin Pparc-0-Nayzbuxto Mmpee-7-Nwpkwwzig Beta Globulins PEP Interpretation Cholesterol LDL Cholesterol Direct Vitamin B12 Urine WBC (Auto) Urine Creatinine Crossmatch 03/26/16 03/26/16 03/26/16 12:38 15:33 15:47 WBC RBC Hgb Hct MCV MCH MCHC RDW Plt Count Lymph % (Auto) [place] % (Auto) Lymph # [place] # Baso # Seg Neutrophils % Seg Neuts % (Manual) Lymphocytes % (Manual) Monocytes % (Manual) Seg Neutrophils # Seg Neutrophils # Man Lymphocytes # (Manual) Monocytes # (Manual) Basophils # (Manual) Percent Retic PT INR APTT Heparin Anti-Xa Level POC ABG pH 7.511 H POC ABG pCO2 26.5 L POC ABG pO2 70 L Sodium Potassium Chloride Carbon Dioxide BUN Creatinine Glucose POC Glucose 280 H 174 H Calcium Phosphorus Iron TIBC Lactate Dehydrogenase Total Creatine Kinase NT-Pro-B Natriuret Pep Total Protein Albumin Nszct-9-Cfjkgjlip Mshfz-1-Hguanvliu Beta Globulins PEP Interpretation Cholesterol LDL Cholesterol Direct Vitamin B12 Urine WBC (Auto) Urine Creatinine Crossmatch 03/26/16 03/26/16 03/26/16 16:47 16:47 18:51 WBC 14.0 H RBC 5.17 H Hgb Hct MCV MCH 26 L MCHC 31 L RDW Plt Count 139 L Lymph % (Auto) [place] % (Auto) Lymph # [place] # Baso # Seg Neutrophils % Seg Neuts % (Manual) Lymphocytes % (Manual) Monocytes % (Manual) Seg Neutrophils # Seg Neutrophils # Man Lymphocytes # (Manual) Monocytes # (Manual) Basophils # (Manual) Percent Retic PT INR APTT Heparin Anti-Xa Level POC ABG pH POC ABG pCO2 33.9 L POC ABG pO2 150 H Sodium 164 H* Potassium 3.4 L Chloride 128.5 H Carbon Dioxide BUN 30 H Creatinine 2.2 H Glucose 121 H POC Glucose Calcium 8.1 L Phosphorus Iron TIBC Lactate Dehydrogenase Total Creatine Kinase NT-Pro-B Natriuret Pep Total Protein Albumin Kpgpf-5-Trenwzwnm Pezdh-4-Pnshptawv Beta Globulins PEP Interpretation Cholesterol LDL Cholesterol Direct Vitamin B12 Urine WBC (Auto) Urine Creatinine Crossmatch 03/27/16 03/27/16 03/27/16 02:19 05:47 06:02 WBC RBC Hgb Hct MCV MCH MCHC RDW Plt Count Lymph % (Auto) [place] % (Auto) Lymph # [place] # Baso # Seg Neutrophils % Seg Neuts % (Manual) Lymphocytes % (Manual) Monocytes % (Manual) Seg Neutrophils # Seg Neutrophils # Man Lymphocytes # (Manual) Monocytes # (Manual) Basophils # (Manual) Percent Retic PT INR APTT Heparin Anti-Xa Level POC ABG pH POC ABG pCO2 27.3 L 30.3 L POC ABG pO2 50 L 112 H Sodium 158 H Potassium Chloride 126.7 H Carbon Dioxide 20 L BUN 25 H Creatinine 1.7 H Glucose POC Glucose Calcium 7.0 L Phosphorus Iron TIBC Lactate Dehydrogenase Total Creatine Kinase NT-Pro-B Natriuret Pep Total Protein Albumin Rftpq-2-Wgeqfoprx Hdafm-2-Szzoipcuv Beta Globulins PEP Interpretation Cholesterol LDL Cholesterol Direct Vitamin B12 Urine WBC (Auto) Urine Creatinine Crossmatch 03/27/16 03/27/16 03/27/16 07:51 09:20 11:45 WBC 14.2 H RBC Hgb Hct MCV 83 L MCH 27 L MCHC RDW Plt Count 113 L Lymph % (Auto) [place] % (Auto) Lymph # [place] # Baso # Seg Neutrophils % Seg Neuts % (Manual) Lymphocytes % (Manual) Monocytes % (Manual) Seg Neutrophils # Seg Neutrophils # Man Lymphocytes # (Manual) Monocytes # (Manual) Basophils # (Manual) Percent Retic PT INR APTT Heparin Anti-Xa Level POC ABG pH POC ABG pCO2 POC ABG pO2 Sodium Potassium Chloride Carbon Dioxide BUN Creatinine Glucose POC Glucose 124 H 241 H Calcium Phosphorus Iron TIBC Lactate Dehydrogenase Total Creatine Kinase NT-Pro-B Natriuret Pep Total Protein Albumin Rxbvf-9-Kxqagoyvx Gfuew-3-Udetyomwr Beta Globulins PEP Interpretation Cholesterol LDL Cholesterol Direct Vitamin B12 Urine WBC (Auto) Urine Creatinine Crossmatch 03/27/16 03/27/16 03/28/16 16:39 22:03 03:29 WBC RBC Hgb Hct MCV MCH MCHC RDW Plt Count Lymph % (Auto) [place] % (Auto) Lymph # [place] # Baso # Seg Neutrophils % Seg Neuts % (Manual) Lymphocytes % (Manual) Monocytes % (Manual) Seg Neutrophils # Seg Neutrophils # Man Lymphocytes # (Manual) Monocytes # (Manual) Basophils # (Manual) Percent Retic PT INR APTT Heparin Anti-Xa Level POC ABG pH POC ABG pCO2 POC ABG pO2 Sodium Potassium Chloride Carbon Dioxide BUN Creatinine Glucose POC Glucose 266 H 167 H 241 H Calcium Phosphorus Iron TIBC Lactate Dehydrogenase Total Creatine Kinase NT-Pro-B Natriuret Pep Total Protein Albumin Orrug-9-Pkbwgzjxo Zyatw-2-Lzmekhkow Beta Globulins PEP Interpretation Cholesterol LDL Cholesterol Direct Vitamin B12 Urine WBC (Auto) Urine Creatinine Crossmatch 03/28/16 03/28/16 03/28/16 05:00 05:00 05:00 WBC RBC Hgb Hct MCV 83 L MCH 27 L MCHC RDW Plt Count 106 L Lymph % (Auto) [place] % (Auto) 10.1 H Lymph # [place] # 1.0 H Baso # Seg Neutrophils % 75.1 H Seg Neuts % (Manual) Lymphocytes % (Manual) Monocytes % (Manual) Seg Neutrophils # Seg Neutrophils # Man Lymphocytes # (Manual) Monocytes # (Manual) Basophils # (Manual) Percent Retic PT INR APTT Heparin Anti-Xa Level POC ABG pH POC ABG pCO2 POC ABG pO2 Sodium 147 H D Potassium 3.1 L D Chloride 112.3 H Carbon Dioxide 21 L BUN Creatinine Glucose 208 H POC Glucose Calcium 7.0 L Phosphorus 2.2 L Iron TIBC Lactate Dehydrogenase Total Creatine Kinase NT-Pro-B Natriuret Pep Total Protein Albumin Emffj-4-Nqnqnunyl Wtwnf-4-Svfdmvyqd Beta Globulins PEP Interpretation Cholesterol LDL Cholesterol Direct Vitamin B12 Urine WBC (Auto) Urine Creatinine Crossmatch 03/28/16 03/28/16 03/28/16 05:14 08:41 10:56 WBC RBC Hgb Hct MCV MCH MCHC RDW Plt Count Lymph % (Auto) [place] % (Auto) Lymph # [place] # Baso # Seg Neutrophils % Seg Neuts % (Manual) Lymphocytes % (Manual) Monocytes % (Manual) Seg Neutrophils # Seg Neutrophils # Man Lymphocytes # (Manual) Monocytes # (Manual) Basophils # (Manual) Percent Retic PT INR APTT Heparin Anti-Xa Level POC ABG pH 7.457 H POC ABG pCO2 29.7 L 27.7 L POC ABG pO2 Sodium Potassium Chloride Carbon Dioxide BUN Creatinine Glucose POC Glucose 228 H Calcium Phosphorus Iron TIBC Lactate Dehydrogenase Total Creatine Kinase NT-Pro-B Natriuret Pep Total Protein Albumin Tmobq-1-Bcvmrptyw Viape-0-Qgdjyawhl Beta Globulins PEP Interpretation Cholesterol LDL Cholesterol Direct Vitamin B12 Urine WBC (Auto) Urine Creatinine Crossmatch 03/28/16 03/28/16 03/28/16 11:37 13:29 16:22 WBC RBC Hgb Hct MCV MCH MCHC RDW Plt Count Lymph % (Auto) [place] % (Auto) Lymph # [place] # Baso # Seg Neutrophils % Seg Neuts % (Manual) Lymphocytes % (Manual) Monocytes % (Manual) Seg Neutrophils # Seg Neutrophils # Man Lymphocytes # (Manual) Monocytes # (Manual) Basophils # (Manual) Percent Retic PT INR APTT Heparin Anti-Xa Level POC ABG pH POC ABG pCO2 POC ABG pO2 Sodium Potassium Chloride Carbon Dioxide BUN Creatinine Glucose POC Glucose 226 H 200 H Calcium Phosphorus Iron TIBC Lactate Dehydrogenase Total Creatine Kinase 356 H NT-Pro-B Natriuret Pep Total Protein Albumin Yktur-3-Wggfmrxpl Mjczq-8-Ybgzpvxus Beta Globulins PEP Interpretation Cholesterol LDL Cholesterol Direct Vitamin B12 Urine WBC (Auto) Urine Creatinine Crossmatch 03/28/16 03/29/16 03/29/16 21:48 04:50 04:50 WBC RBC Hgb 11.5 L Hct 35.3 L MCV 81 L MCH 26 L MCHC RDW Plt Count 97 L Lymph % (Auto) [place] % (Auto) 11.7 H Lymph # [place] # 1.1 H Baso # Seg Neutrophils % Seg Neuts % (Manual) Lymphocytes % (Manual) Monocytes % (Manual) Seg Neutrophils # Seg Neutrophils # Man Lymphocytes # (Manual) Monocytes # (Manual) Basophils # (Manual) Percent Retic PT INR APTT Heparin Anti-Xa Level POC ABG pH POC ABG pCO2 POC ABG pO2 Sodium 136 L D Potassium 3.3 L Chloride Carbon Dioxide 20 L BUN Creatinine Glucose 386 H POC Glucose 188 H Calcium 6.8 L Phosphorus 1.6 L D Iron TIBC Lactate Dehydrogenase Total Creatine Kinase NT-Pro-B Natriuret Pep Total Protein Albumin Smpif-2-Wohdpdcff Ryhko-2-Sjdjmcnar Beta Globulins PEP Interpretation Cholesterol LDL Cholesterol Direct Vitamin B12 Urine WBC (Auto) Urine Creatinine Crossmatch 03/29/16 03/29/16 03/29/16 08:10 11:12 16:09 WBC RBC Hgb Hct MCV MCH MCHC RDW Plt Count Lymph % (Auto) [place] % (Auto) Lymph # [place] # Baso # Seg Neutrophils % Seg Neuts % (Manual) Lymphocytes % (Manual) Monocytes % (Manual) Seg Neutrophils # Seg Neutrophils # Man Lymphocytes # (Manual) Monocytes # (Manual) Basophils # (Manual) Percent Retic PT INR APTT Heparin Anti-Xa Level POC ABG pH POC ABG pCO2 POC ABG pO2 Sodium Potassium Chloride Carbon Dioxide BUN Creatinine Glucose POC Glucose 230 H 180 H 46 L Calcium Phosphorus Iron TIBC Lactate Dehydrogenase Total Creatine Kinase NT-Pro-B Natriuret Pep Total Protein Albumin Uvhpa-3-Qzfqvzumg Qbsin-2-Jwxdjznhk Beta Globulins PEP Interpretation Cholesterol LDL Cholesterol Direct Vitamin B12 Urine WBC (Auto) Urine Creatinine Crossmatch 03/29/16 03/29/16 03/30/16 16:12 18:15 02:53 WBC RBC Hgb Hct MCV MCH MCHC RDW Plt Count Lymph % (Auto) [place] % (Auto) Lymph # [place] # Baso # Seg Neutrophils % Seg Neuts % (Manual) Lymphocytes % (Manual) Monocytes % (Manual) Seg Neutrophils # Seg Neutrophils # Man Lymphocytes # (Manual) Monocytes # (Manual) Basophils # (Manual) Percent Retic PT INR APTT Heparin Anti-Xa Level POC ABG pH POC ABG pCO2 POC ABG pO2 Sodium Potassium Chloride Carbon Dioxide BUN Creatinine Glucose POC Glucose 52 L 118 H 130 H Calcium Phosphorus Iron TIBC Lactate Dehydrogenase Total Creatine Kinase NT-Pro-B Natriuret Pep Total Protein Albumin Uzkxq-7-Kprlsnmdb Zrehr-7-Mebfftsnt Beta Globulins PEP Interpretation Cholesterol LDL Cholesterol Direct Vitamin B12 Urine WBC (Auto) Urine Creatinine Crossmatch 03/30/16 03/30/16 03/30/16 04:00 04:00 05:29 WBC RBC Hgb Hct MCV 81 L MCH 26 L MCHC RDW Plt Count 116 L Lymph % (Auto) 10.8 L [place] % (Auto) 13.1 H Lymph # 1.0 L [place] # 1.3 H Baso # Seg Neutrophils % 74.2 H Seg Neuts % (Manual) Lymphocytes % (Manual) Monocytes % (Manual) Seg Neutrophils # Seg Neutrophils # Man Lymphocytes # (Manual) Monocytes # (Manual) Basophils # (Manual) Percent Retic PT INR APTT Heparin Anti-Xa Level POC ABG pH 7.522 H POC ABG pCO2 22.7 L POC ABG pO2 137 H Sodium 147 H D Potassium Chloride 115.5 H Carbon Dioxide 20 L BUN Creatinine Glucose 116 H POC Glucose Calcium 7.6 L Phosphorus 2.3 L D Iron TIBC Lactate Dehydrogenase Total Creatine Kinase NT-Pro-B Natriuret Pep Total Protein Albumin Akueb-5-Hwfhoqcjn Pcabs-2-Nzghyeqxi Beta Globulins PEP Interpretation Cholesterol LDL Cholesterol Direct Vitamin B12 Urine WBC (Auto) Urine Creatinine Crossmatch 03/30/16 03/30/16 03/30/16 05:47 08:05 08:59 WBC RBC Hgb Hct MCV MCH MCHC RDW Plt Count Lymph % (Auto) [place] % (Auto) Lymph # [place] # Baso # Seg Neutrophils % Seg Neuts % (Manual) Lymphocytes % (Manual) Monocytes % (Manual) Seg Neutrophils # Seg Neutrophils # Man Lymphocytes # (Manual) Monocytes # (Manual) Basophils # (Manual) Percent Retic PT INR APTT Heparin Anti-Xa Level POC ABG pH POC ABG pCO2 26.2 L POC ABG pO2 115 H Sodium Potassium Chloride Carbon Dioxide BUN Creatinine Glucose POC Glucose 138 H 171 H Calcium Phosphorus Iron TIBC Lactate Dehydrogenase Total Creatine Kinase NT-Pro-B Natriuret Pep Total Protein Albumin Qsqww-7-Qcftnulca Axewb-2-Eicohsipa Beta Globulins PEP Interpretation Cholesterol LDL Cholesterol Direct Vitamin B12 Urine WBC (Auto) Urine Creatinine Crossmatch 03/30/16 03/30/16 03/30/16 12:11 12:11 16:39 WBC RBC Hgb Hct MCV MCH MCHC RDW Plt Count Lymph % (Auto) [place] % (Auto) Lymph # [place] # Baso # Seg Neutrophils % Seg Neuts % (Manual) Lymphocytes % (Manual) Monocytes % (Manual) Seg Neutrophils # Seg Neutrophils # Man Lymphocytes # (Manual) Monocytes # (Manual) Basophils # (Manual) Percent Retic PT INR APTT Heparin Anti-Xa Level POC ABG pH 7.476 H POC ABG pCO2 29.0 L POC ABG pO2 Sodium Potassium Chloride Carbon Dioxide BUN Creatinine Glucose POC Glucose 142 H 59 L Calcium Phosphorus Iron TIBC Lactate Dehydrogenase Total Creatine Kinase NT-Pro-B Natriuret Pep Total Protein Albumin Ebxqg-6-Atqxzdnoz Ahpfb-2-Qtmxiplof Beta Globulins PEP Interpretation Cholesterol LDL Cholesterol Direct Vitamin B12 Urine WBC (Auto) Urine Creatinine Crossmatch 03/30/16 03/30/16 03/31/16 18:41 21:59 05:02 WBC RBC Hgb Hct MCV MCH MCHC RDW Plt Count Lymph % (Auto) [place] % (Auto) Lymph # [place] # Baso # Seg Neutrophils % Seg Neuts % (Manual) Lymphocytes % (Manual) Monocytes % (Manual) Seg Neutrophils # Seg Neutrophils # Man Lymphocytes # (Manual) Monocytes # (Manual) Basophils # (Manual) Percent Retic PT INR APTT Heparin Anti-Xa Level POC ABG pH 7.519 H POC ABG pCO2 21.8 L POC ABG pO2 142 H Sodium Potassium Chloride Carbon Dioxide BUN Creatinine Glucose POC Glucose 145 H 154 H Calcium Phosphorus Iron TIBC Lactate Dehydrogenase Total Creatine Kinase NT-Pro-B Natriuret Pep Total Protein Albumin Mtmbq-5-Gaezebzuz Cfqun-7-Pkmfdoebl Beta Globulins PEP Interpretation Cholesterol LDL Cholesterol Direct Vitamin B12 Urine WBC (Auto) Urine Creatinine Crossmatch 03/31/16 03/31/16 03/31/16 05:15 05:15 05:15 WBC 13.4 H RBC 5.21 H Hgb Hct MCV 81 L MCH 26 L MCHC RDW Plt Count Lymph % (Auto) 9.5 L [place] % (Auto) 14.0 H Lymph # [place] # 1.9 H Baso # Seg Neutrophils % 75.0 H Seg Neuts % (Manual) Lymphocytes % (Manual) Monocytes % (Manual) Seg Neutrophils # 10.1 H Seg Neutrophils # Man Lymphocytes # (Manual) Monocytes # (Manual) Basophils # (Manual) Percent Retic PT INR APTT Heparin Anti-Xa Level POC ABG pH POC ABG pCO2 POC ABG pO2 Sodium Potassium Chloride 108.5 H Carbon Dioxide 19 L BUN Creatinine Glucose 188 H POC Glucose Calcium Phosphorus Iron TIBC Lactate Dehydrogenase Total Creatine Kinase NT-Pro-B Natriuret Pep 1089 H Total Protein Albumin Uldcg-6-Ysjwfwkkz Pgeax-8-Zgdibukqa Beta Globulins PEP Interpretation Cholesterol LDL Cholesterol Direct Vitamin B12 Urine WBC (Auto) Urine Creatinine Crossmatch 03/31/16 03/31/16 03/31/16 07:23 11:12 15:20 WBC RBC Hgb Hct MCV MCH MCHC RDW Plt Count Lymph % (Auto) [place] % (Auto) Lymph # [place] # Baso # Seg Neutrophils % Seg Neuts % (Manual) Lymphocytes % (Manual) Monocytes % (Manual) Seg Neutrophils # Seg Neutrophils # Man Lymphocytes # (Manual) Monocytes # (Manual) Basophils # (Manual) Percent Retic PT INR APTT Heparin Anti-Xa Level POC ABG pH POC ABG pCO2 POC ABG pO2 Sodium Potassium Chloride Carbon Dioxide BUN Creatinine Glucose POC Glucose 233 H 228 H 208 H Calcium Phosphorus Iron TIBC Lactate Dehydrogenase Total Creatine Kinase NT-Pro-B Natriuret Pep Total Protein Albumin Yqqea-0-Wixlohwsc Lqzzo-0-Zydavxtuz Beta Globulins PEP Interpretation Cholesterol LDL Cholesterol Direct Vitamin B12 Urine WBC (Auto) Urine Creatinine Crossmatch 03/31/16 04/01/16 04/01/16 21:27 04:41 05:35 WBC 12.1 H RBC Hgb Hct MCV 81 L MCH 26 L MCHC RDW Plt Count Lymph % (Auto) 8.5 L [place] % (Auto) 14.0 H Lymph # 1.0 L [place] # 1.7 H Baso # Seg Neutrophils % 76.2 H Seg Neuts % (Manual) Lymphocytes % (Manual) Monocytes % (Manual) Seg Neutrophils # 9.2 H Seg Neutrophils # Man Lymphocytes # (Manual) Monocytes # (Manual) Basophils # (Manual) Percent Retic PT INR APTT Heparin Anti-Xa Level POC ABG pH 7.455 H POC ABG pCO2 31.0 L POC ABG pO2 Sodium Potassium Chloride Carbon Dioxide BUN Creatinine Glucose POC Glucose 162 H Calcium Phosphorus Iron TIBC Lactate Dehydrogenase Total Creatine Kinase NT-Pro-B Natriuret Pep Total Protein Albumin Pkrld-5-Lmzgaotbx Oqssc-5-Lpwiqlaml Beta Globulins PEP Interpretation Cholesterol LDL Cholesterol Direct Vitamin B12 Urine WBC (Auto) Urine Creatinine Crossmatch 04/01/16 04/01/16 04/01/16 05:35 08:44 12:49 WBC RBC Hgb Hct MCV MCH MCHC RDW Plt Count Lymph % (Auto) [place] % (Auto) Lymph # [place] # Baso # Seg Neutrophils % Seg Neuts % (Manual) Lymphocytes % (Manual) Monocytes % (Manual) Seg Neutrophils # Seg Neutrophils # Man Lymphocytes # (Manual) Monocytes # (Manual) Basophils # (Manual) Percent Retic PT INR APTT Heparin Anti-Xa Level POC ABG pH POC ABG pCO2 POC ABG pO2 Sodium Potassium Chloride Carbon Dioxide BUN Creatinine Glucose 256 H POC Glucose 257 H 279 H Calcium 8.0 L Phosphorus Iron TIBC Lactate Dehydrogenase Total Creatine Kinase NT-Pro-B Natriuret Pep 1205 H Total Protein Albumin Vitwn-2-Lsrgfzitr Zgier-4-Msllftmug Beta Globulins PEP Interpretation Cholesterol LDL Cholesterol Direct Vitamin B12 Urine WBC (Auto) Urine Creatinine Crossmatch 04/01/16 04/02/16 04/02/16 18:12 00:42 04:17 WBC RBC Hgb Hct MCV MCH MCHC RDW Plt Count Lymph % (Auto) [place] % (Auto) Lymph # [place] # Baso # Seg Neutrophils % Seg Neuts % (Manual) Lymphocytes % (Manual) Monocytes % (Manual) Seg Neutrophils # Seg Neutrophils # Man Lymphocytes # (Manual) Monocytes # (Manual) Basophils # (Manual) Percent Retic PT INR APTT Heparin Anti-Xa Level POC ABG pH 7.582 H POC ABG pCO2 26.8 L POC ABG pO2 Sodium Potassium Chloride Carbon Dioxide BUN Creatinine Glucose POC Glucose 168 H 282 H Calcium Phosphorus Iron TIBC Lactate Dehydrogenase Total Creatine Kinase NT-Pro-B Natriuret Pep Total Protein Albumin Mhyoc-6-Mvauclfmf Nqdxc-4-Pbnarzkni Beta Globulins PEP Interpretation Cholesterol LDL Cholesterol Direct Vitamin B12 Urine WBC (Auto) Urine Creatinine Crossmatch 04/02/16 04/02/16 04/02/16 05:00 05:00 06:27 WBC 12.4 H RBC Hgb Hct MCV 81 L MCH 26 L MCHC RDW Plt Count Lymph % (Auto) 6.4 L [place] % (Auto) 13.3 H Lymph # 0.8 L [place] # 1.7 H Baso # Seg Neutrophils % 79.4 H Seg Neuts % (Manual) Lymphocytes % (Manual) Monocytes % (Manual) Seg Neutrophils # 9.9 H Seg Neutrophils # Man Lymphocytes # (Manual) Monocytes # (Manual) Basophils # (Manual) Percent Retic PT INR APTT Heparin Anti-Xa Level POC ABG pH POC ABG pCO2 POC ABG pO2 Sodium 146 H Potassium Chloride Carbon Dioxide BUN Creatinine Glucose 334 H POC Glucose 317 H Calcium 8.0 L Phosphorus Iron TIBC Lactate Dehydrogenase Total Creatine Kinase NT-Pro-B Natriuret Pep Total Protein Albumin Naxfs-2-Tfdsjsmow Ydtbe-2-Hjcsnqthz Beta Globulins PEP Interpretation Cholesterol LDL Cholesterol Direct Vitamin B12 Urine WBC (Auto) Urine Creatinine Crossmatch 04/02/16 04/02/16 04/02/16 11:51 13:10 17:24 WBC RBC Hgb Hct MCV MCH MCHC RDW Plt Count Lymph % (Auto) [place] % (Auto) Lymph # [place] # Baso # Seg Neutrophils % Seg Neuts % (Manual) Lymphocytes % (Manual) Monocytes % (Manual) Seg Neutrophils # Seg Neutrophils # Man Lymphocytes # (Manual) Monocytes # (Manual) Basophils # (Manual) Percent Retic PT INR APTT Heparin Anti-Xa Level POC ABG pH 7.518 H POC ABG pCO2 POC ABG pO2 Sodium Potassium Chloride Carbon Dioxide BUN Creatinine Glucose POC Glucose 278 H 195 H Calcium Phosphorus Iron TIBC Lactate Dehydrogenase Total Creatine Kinase NT-Pro-B Natriuret Pep Total Protein Albumin Pwpxn-2-Gjdwwuxoi Rbkts-4-Qkmyrpsyb Beta Globulins PEP Interpretation Cholesterol LDL Cholesterol Direct Vitamin B12 Urine WBC (Auto) Urine Creatinine Crossmatch 04/03/16 04/03/16 04/03/16 00:18 04:10 04:10 WBC 14.3 H RBC Hgb Hct MCV 81 L MCH 26 L MCHC RDW Plt Count Lymph % (Auto) 9.0 L [place] % (Auto) 10.7 H Lymph # [place] # 1.5 H Baso # 0.2 H Seg Neutrophils % 78.5 H Seg Neuts % (Manual) Lymphocytes % (Manual) Monocytes % (Manual) Seg Neutrophils # 11.3 H Seg Neutrophils # Man Lymphocytes # (Manual) Monocytes # (Manual) Basophils # (Manual) Percent Retic PT INR APTT Heparin Anti-Xa Level POC ABG pH POC ABG pCO2 POC ABG pO2 Sodium 148 H Potassium Chloride 108.1 H Carbon Dioxide BUN 21 H Creatinine Glucose 227 H POC Glucose 144 H Calcium 8.2 L Phosphorus Iron TIBC Lactate Dehydrogenase Total Creatine Kinase NT-Pro-B Natriuret Pep Total Protein Albumin Hemrj-8-Apnqdvhsj Mnnin-6-Zrnjjcrlv Beta Globulins PEP Interpretation Cholesterol LDL Cholesterol Direct Vitamin B12 Urine WBC (Auto) Urine Creatinine Crossmatch 04/03/16 04/03/16 04/04/16 11:14 17:10 04:00 WBC 14.5 H RBC Hgb Hct MCV 81 L MCH 26 L MCHC RDW Plt Count Lymph % (Auto) 7.2 L [place] % (Auto) 7.6 H Lymph # 1.0 L [place] # 1.1 H Baso # Seg Neutrophils % 84.5 H Seg Neuts % (Manual) Lymphocytes % (Manual) Monocytes % (Manual) Seg Neutrophils # 12.3 H Seg Neutrophils # Man Lymphocytes # (Manual) Monocytes # (Manual) Basophils # (Manual) Percent Retic PT INR APTT Heparin Anti-Xa Level POC ABG pH POC ABG pCO2 POC ABG pO2 Sodium Potassium Chloride Carbon Dioxide BUN Creatinine Glucose POC Glucose 267 H 212 H Calcium Phosphorus Iron TIBC Lactate Dehydrogenase Total Creatine Kinase NT-Pro-B Natriuret Pep Total Protein Albumin Evfbd-1-Fdejekbcz Gxhux-0-Yvedtwcvw Beta Globulins PEP Interpretation Cholesterol LDL Cholesterol Direct Vitamin B12 Urine WBC (Auto) Urine Creatinine Crossmatch 04/04/16 04/04/16 04/04/16 05:00 09:55 09:55 WBC RBC Hgb 11.5 L Hct MCV MCH MCHC RDW Plt Count Lymph % (Auto) [place] % (Auto) Lymph # [place] # Baso # Seg Neutrophils % Seg Neuts % (Manual) Lymphocytes % (Manual) Monocytes % (Manual) Seg Neutrophils # Seg Neutrophils # Man Lymphocytes # (Manual) Monocytes # (Manual) Basophils # (Manual) Percent Retic PT INR APTT 42.1 H Heparin Anti-Xa Level POC ABG pH POC ABG pCO2 POC ABG pO2 Sodium 146 H Potassium Chloride Carbon Dioxide BUN 22 H Creatinine Glucose 128 H POC Glucose Calcium Phosphorus Iron TIBC Lactate Dehydrogenase Total Creatine Kinase NT-Pro-B Natriuret Pep Total Protein Albumin Hkbuh-8-Xnzjckdlv Zrzve-8-Lubwtiueg Beta Globulins PEP Interpretation Cholesterol LDL Cholesterol Direct Vitamin B12 Urine WBC (Auto) Urine Creatinine Crossmatch 04/04/16 04/04/16 04/04/16 11:45 17:49 17:55 WBC RBC Hgb Hct MCV MCH MCHC RDW Plt Count Lymph % (Auto) [place] % (Auto) Lymph # [place] # Baso # Seg Neutrophils % Seg Neuts % (Manual) Lymphocytes % (Manual) Monocytes % (Manual) Seg Neutrophils # Seg Neutrophils # Man Lymphocytes # (Manual) Monocytes # (Manual) Basophils # (Manual) Percent Retic PT INR APTT Heparin Anti-Xa Level 1.19 H POC ABG pH POC ABG pCO2 POC ABG pO2 Sodium Potassium Chloride Carbon Dioxide BUN Creatinine Glucose POC Glucose 231 H 186 H Calcium Phosphorus Iron TIBC Lactate Dehydrogenase Total Creatine Kinase NT-Pro-B Natriuret Pep Total Protein Albumin Ruzxr-9-Jwqipgoqh Izfnf-7-Elzxbkfrg Beta Globulins PEP Interpretation Cholesterol LDL Cholesterol Direct Vitamin B12 Urine WBC (Auto) Urine Creatinine Crossmatch 04/05/16 04/05/16 04/05/16 00:35 05:32 05:42 WBC RBC Hgb Hct MCV MCH MCHC RDW Plt Count Lymph % (Auto) [place] % (Auto) Lymph # [place] # Baso # Seg Neutrophils % Seg Neuts % (Manual) Lymphocytes % (Manual) Monocytes % (Manual) Seg Neutrophils # Seg Neutrophils # Man Lymphocytes # (Manual) Monocytes # (Manual) Basophils # (Manual) Percent Retic PT INR APTT Heparin Anti-Xa Level POC ABG pH 7.491 H POC ABG pCO2 POC ABG pO2 Sodium Potassium Chloride Carbon Dioxide BUN Creatinine Glucose POC Glucose 192 H 242 H Calcium Phosphorus Iron TIBC Lactate Dehydrogenase Total Creatine Kinase NT-Pro-B Natriuret Pep Total Protein Albumin Cerbx-2-Jodhozocl Zpgek-6-Bvidarczq Beta Globulins PEP Interpretation Cholesterol LDL Cholesterol Direct Vitamin B12 Urine WBC (Auto) Urine Creatinine Crossmatch 04/05/16 04/05/16 04/05/16 06:20 06:20 12:19 WBC 13.9 H RBC Hgb 11.6 L Hct MCV 81 L MCH 26 L MCHC RDW Plt Count Lymph % (Auto) 9.6 L [place] % (Auto) 8.7 H Lymph # [place] # 1.2 H Baso # Seg Neutrophils % 80.9 H Seg Neuts % (Manual) Lymphocytes % (Manual) Monocytes % (Manual) Seg Neutrophils # 11.3 H Seg Neutrophils # Man Lymphocytes # (Manual) Monocytes # (Manual) Basophils # (Manual) Percent Retic PT INR APTT Heparin Anti-Xa Level POC ABG pH POC ABG pCO2 POC ABG pO2 Sodium 148 H Potassium Chloride Carbon Dioxide BUN 23 H Creatinine Glucose 242 H POC Glucose 187 H Calcium Phosphorus Iron TIBC Lactate Dehydrogenase Total Creatine Kinase NT-Pro-B Natriuret Pep Total Protein Albumin Sksbu-2-Xailzhlmm Pohyt-6-Psgrpiyry Beta Globulins PEP Interpretation Cholesterol LDL Cholesterol Direct Vitamin B12 Urine WBC (Auto) Urine Creatinine Crossmatch 04/05/16 04/05/16 04/06/16 17:10 23:45 05:23 WBC 13.0 H RBC Hgb Hct MCV 82 L MCH 26 L MCHC 31 L RDW Plt Count Lymph % (Auto) 6.7 L [place] % (Auto) 8.3 H Lymph # 0.9 L [place] # 1.1 H Baso # Seg Neutrophils % 84.6 H Seg Neuts % (Manual) Lymphocytes % (Manual) Monocytes % (Manual) Seg Neutrophils # 11.0 H Seg Neutrophils # Man Lymphocytes # (Manual) Monocytes # (Manual) Basophils # (Manual) Percent Retic PT INR APTT Heparin Anti-Xa Level POC ABG pH POC ABG pCO2 POC ABG pO2 Sodium Potassium Chloride Carbon Dioxide BUN Creatinine Glucose POC Glucose 169 H 202 H Calcium Phosphorus Iron TIBC Lactate Dehydrogenase Total Creatine Kinase NT-Pro-B Natriuret Pep Total Protein Albumin Cwaxd-2-Xjmrqzidx Hamgy-4-Rcmaokiye Beta Globulins PEP Interpretation Cholesterol LDL Cholesterol Direct Vitamin B12 Urine WBC (Auto) Urine Creatinine Crossmatch 04/06/16 04/06/16 04/06/16 05:23 05:23 06:11 WBC RBC Hgb Hct MCV MCH MCHC RDW Plt Count Lymph % (Auto) [place] % (Auto) Lymph # [place] # Baso # Seg Neutrophils % Seg Neuts % (Manual) Lymphocytes % (Manual) Monocytes % (Manual) Seg Neutrophils # Seg Neutrophils # Man Lymphocytes # (Manual) Monocytes # (Manual) Basophils # (Manual) Percent Retic PT INR APTT Heparin Anti-Xa Level 0.21 L POC ABG pH POC ABG pCO2 POC ABG pO2 Sodium 153 H Potassium Chloride 111.3 H Carbon Dioxide BUN 22 H Creatinine Glucose 62 L POC Glucose 56 L Calcium Phosphorus Iron TIBC Lactate Dehydrogenase Total Creatine Kinase NT-Pro-B Natriuret Pep Total Protein Albumin Vnywh-6-Skhhvuymw Jmabv-7-Bnqwuvgbi Beta Globulins PEP Interpretation Cholesterol LDL Cholesterol Direct Vitamin B12 Urine WBC (Auto) Urine Creatinine Crossmatch 04/06/16 04/06/16 04/06/16 06:52 11:36 14:58 WBC RBC Hgb Hct MCV MCH MCHC RDW Plt Count Lymph % (Auto) [place] % (Auto) Lymph # [place] # Baso # Seg Neutrophils % Seg Neuts % (Manual) Lymphocytes % (Manual) Monocytes % (Manual) Seg Neutrophils # Seg Neutrophils # Man Lymphocytes # (Manual) Monocytes # (Manual) Basophils # (Manual) Percent Retic PT INR APTT Heparin Anti-Xa Level POC ABG pH POC ABG pCO2 POC ABG pO2 Sodium Potassium Chloride Carbon Dioxide BUN Creatinine Glucose POC Glucose 206 H 139 H 147 H Calcium Phosphorus Iron TIBC Lactate Dehydrogenase Total Creatine Kinase NT-Pro-B Natriuret Pep Total Protein Albumin Vdchz-0-Ykznopyki Sovrm-1-Khutxcyuu Beta Globulins PEP Interpretation Cholesterol LDL Cholesterol Direct Vitamin B12 Urine WBC (Auto) Urine Creatinine Crossmatch 04/06/16 04/06/16 04/06/16 16:03 21:18 23:53 WBC RBC Hgb Hct MCV MCH MCHC RDW Plt Count Lymph % (Auto) [place] % (Auto) Lymph # [place] # Baso # Seg Neutrophils % Seg Neuts % (Manual) Lymphocytes % (Manual) Monocytes % (Manual) Seg Neutrophils # Seg Neutrophils # Man Lymphocytes # (Manual) Monocytes # (Manual) Basophils # (Manual) Percent Retic PT INR APTT Heparin Anti-Xa Level POC ABG pH POC ABG pCO2 POC ABG pO2 Sodium Potassium Chloride Carbon Dioxide BUN Creatinine Glucose POC Glucose 154 H 293 H 301 H Calcium Phosphorus Iron TIBC Lactate Dehydrogenase Total Creatine Kinase NT-Pro-B Natriuret Pep Total Protein Albumin Xkkme-5-Ozmorwknv Zyvxo-9-Cnqcttpqa Beta Globulins PEP Interpretation Cholesterol LDL Cholesterol Direct Vitamin B12 Urine WBC (Auto) Urine Creatinine Crossmatch 04/07/16 04/07/16 04/07/16 02:30 05:11 05:11 WBC 12.5 H RBC Hgb 11.5 L Hct MCV 82 L MCH 26 L MCHC 31 L RDW Plt Count Lymph % (Auto) [place] % (Auto) Lymph # [place] # Baso # Seg Neutrophils % Seg Neuts % (Manual) Lymphocytes % (Manual) Monocytes % (Manual) Seg Neutrophils # Seg Neutrophils # Man Lymphocytes # (Manual) Monocytes # (Manual) Basophils # (Manual) Percent Retic PT INR APTT Heparin Anti-Xa Level 0.11 L POC ABG pH POC ABG pCO2 POC ABG pO2 Sodium 150 H Potassium Chloride 109.5 H Carbon Dioxide BUN 28 H Creatinine Glucose 264 H POC Glucose Calcium Phosphorus Iron TIBC Lactate Dehydrogenase Total Creatine Kinase NT-Pro-B Natriuret Pep Total Protein Albumin Ibust-4-Qgbjhbyfn Qeqks-1-Seitsyyux Beta Globulins PEP Interpretation Cholesterol LDL Cholesterol Direct Vitamin B12 Urine WBC (Auto) Urine Creatinine Crossmatch 04/07/16 04/07/16 04/07/16 06:46 10:18 11:50 WBC RBC Hgb Hct MCV MCH MCHC RDW Plt Count Lymph % (Auto) [place] % (Auto) Lymph # [place] # Baso # Seg Neutrophils % Seg Neuts % (Manual) Lymphocytes % (Manual) Monocytes % (Manual) Seg Neutrophils # Seg Neutrophils # Man Lymphocytes # (Manual) Monocytes # (Manual) Basophils # (Manual) Percent Retic PT 15.1 H INR 1.20 H APTT Heparin Anti-Xa Level POC ABG pH POC ABG pCO2 POC ABG pO2 Sodium Potassium Chloride Carbon Dioxide BUN Creatinine Glucose POC Glucose 259 H 288 H Calcium Phosphorus Iron TIBC Lactate Dehydrogenase Total Creatine Kinase NT-Pro-B Natriuret Pep Total Protein Albumin Yebzg-0-Gsykyczhf Ankqn-4-Ncifdioge Beta Globulins PEP Interpretation Cholesterol LDL Cholesterol Direct Vitamin B12 Urine WBC (Auto) Urine Creatinine Crossmatch 04/07/16 04/08/16 04/08/16 17:58 01:25 06:49 WBC RBC Hgb Hct MCV MCH MCHC RDW Plt Count Lymph % (Auto) [place] % (Auto) Lymph # [place] # Baso # Seg Neutrophils % Seg Neuts % (Manual) Lymphocytes % (Manual) Monocytes % (Manual) Seg Neutrophils # Seg Neutrophils # Man Lymphocytes # (Manual) Monocytes # (Manual) Basophils # (Manual) Percent Retic PT INR APTT Heparin Anti-Xa Level POC ABG pH POC ABG pCO2 POC ABG pO2 Sodium 156 H Potassium Chloride 114.7 H Carbon Dioxide BUN 33 H Creatinine Glucose 169 H POC Glucose 330 H 146 H Calcium Phosphorus Iron TIBC Lactate Dehydrogenase Total Creatine Kinase NT-Pro-B Natriuret Pep Total Protein Albumin Rsxci-0-Awctdfula Dqvut-3-Ojisefkzo Beta Globulins PEP Interpretation Cholesterol LDL Cholesterol Direct Vitamin B12 Urine WBC (Auto) Urine Creatinine Crossmatch 04/08/16 04/08/16 04/08/16 07:34 10:28 10:28 WBC RBC Hgb Hct MCV MCH MCHC RDW Plt Count Lymph % (Auto) [place] % (Auto) Lymph # [place] # Baso # Seg Neutrophils % Seg Neuts % (Manual) Lymphocytes % (Manual) Monocytes % (Manual) Seg Neutrophils # Seg Neutrophils # Man Lymphocytes # (Manual) Monocytes # (Manual) Basophils # (Manual) Percent Retic PT 15.5 H INR 1.24 H APTT Heparin Anti-Xa Level 0.24 L POC ABG pH POC ABG pCO2 POC ABG pO2 Sodium Potassium Chloride Carbon Dioxide BUN Creatinine Glucose POC Glucose 232 H Calcium Phosphorus Iron TIBC Lactate Dehydrogenase Total Creatine Kinase NT-Pro-B Natriuret Pep Total Protein Albumin Tmciz-5-Jrjtqpadh Osnso-7-Jtbrdhvgz Beta Globulins PEP Interpretation Cholesterol LDL Cholesterol Direct Vitamin B12 Urine WBC (Auto) Urine Creatinine Crossmatch 04/08/16 04/08/16 04/09/16 11:36 15:38 00:01 WBC RBC Hgb Hct MCV MCH MCHC RDW Plt Count Lymph % (Auto) [place] % (Auto) Lymph # [place] # Baso # Seg Neutrophils % Seg Neuts % (Manual) Lymphocytes % (Manual) Monocytes % (Manual) Seg Neutrophils # Seg Neutrophils # Man Lymphocytes # (Manual) Monocytes # (Manual) Basophils # (Manual) Percent Retic PT INR APTT Heparin Anti-Xa Level POC ABG pH POC ABG pCO2 POC ABG pO2 Sodium Potassium Chloride Carbon Dioxide BUN Creatinine Glucose POC Glucose 193 H 163 H 180 H Calcium Phosphorus Iron TIBC Lactate Dehydrogenase Total Creatine Kinase NT-Pro-B Natriuret Pep Total Protein Albumin Mapir-4-Xejeuuglu Huren-4-Aebllukdb Beta Globulins PEP Interpretation Cholesterol LDL Cholesterol Direct Vitamin B12 Urine WBC (Auto) Urine Creatinine Crossmatch 04/09/16 04/09/16 04/09/16 06:17 06:42 06:42 WBC RBC Hgb Hct MCV MCH MCHC RDW Plt Count Lymph % (Auto) [place] % (Auto) Lymph # [place] # Baso # Seg Neutrophils % Seg Neuts % (Manual) Lymphocytes % (Manual) Monocytes % (Manual) Seg Neutrophils # Seg Neutrophils # Man Lymphocytes # (Manual) Monocytes # (Manual) Basophils # (Manual) Percent Retic PT 17.4 H INR 1.43 H APTT Heparin Anti-Xa Level POC ABG pH POC ABG pCO2 POC ABG pO2 Sodium 153 H Potassium Chloride 113.2 H Carbon Dioxide BUN 29 H Creatinine Glucose 301 H POC Glucose 249 H Calcium 8.3 L Phosphorus Iron TIBC Lactate Dehydrogenase Total Creatine Kinase NT-Pro-B Natriuret Pep Total Protein Albumin Rdhwj-9-Xdlwwabye Vhtit-3-Onnorugwh Beta Globulins PEP Interpretation Cholesterol LDL Cholesterol Direct Vitamin B12 Urine WBC (Auto) Urine Creatinine Crossmatch 04/09/16 04/09/16 04/09/16 07:37 11:26 15:45 WBC RBC Hgb Hct MCV MCH MCHC RDW Plt Count Lymph % (Auto) [place] % (Auto) Lymph # [place] # Baso # Seg Neutrophils % Seg Neuts % (Manual) Lymphocytes % (Manual) Monocytes % (Manual) Seg Neutrophils # Seg Neutrophils # Man Lymphocytes # (Manual) Monocytes # (Manual) Basophils # (Manual) Percent Retic PT INR APTT Heparin Anti-Xa Level POC ABG pH POC ABG pCO2 POC ABG pO2 Sodium Potassium Chloride Carbon Dioxide BUN Creatinine Glucose POC Glucose 283 H 306 H 354 H Calcium Phosphorus Iron TIBC Lactate Dehydrogenase Total Creatine Kinase NT-Pro-B Natriuret Pep Total Protein Albumin Ybcbj-9-Odppcmwyy Mfvpj-9-Mwlzbohma Beta Globulins PEP Interpretation Cholesterol LDL Cholesterol Direct Vitamin B12 Urine WBC (Auto) Urine Creatinine Crossmatch 04/10/16 04/10/16 04/10/16 00:53 07:15 07:34 WBC RBC Hgb 11.3 L Hct MCV MCH MCHC RDW Plt Count Lymph % (Auto) [place] % (Auto) Lymph # [place] # Baso # Seg Neutrophils % Seg Neuts % (Manual) Lymphocytes % (Manual) Monocytes % (Manual) Seg Neutrophils # Seg Neutrophils # Man Lymphocytes # (Manual) Monocytes # (Manual) Basophils # (Manual) Percent Retic PT INR APTT Heparin Anti-Xa Level POC ABG pH POC ABG pCO2 POC ABG pO2 Sodium Potassium Chloride Carbon Dioxide BUN Creatinine Glucose POC Glucose 323 H 311 H Calcium Phosphorus Iron TIBC Lactate Dehydrogenase Total Creatine Kinase NT-Pro-B Natriuret Pep Total Protein Albumin Tpvmq-1-Smjogihqo Zkpkr-9-Gauvvuosh Beta Globulins PEP Interpretation Cholesterol LDL Cholesterol Direct Vitamin B12 Urine WBC (Auto) Urine Creatinine Crossmatch 04/10/16 04/10/16 04/10/16 07:34 07:34 11:25 WBC RBC Hgb Hct MCV MCH MCHC RDW Plt Count Lymph % (Auto) [place] % (Auto) Lymph # [place] # Baso # Seg Neutrophils % Seg Neuts % (Manual) Lymphocytes % (Manual) Monocytes % (Manual) Seg Neutrophils # Seg Neutrophils # Man Lymphocytes # (Manual) Monocytes # (Manual) Basophils # (Manual) Percent Retic PT 17.3 H INR 1.42 H APTT Heparin Anti-Xa Level POC ABG pH POC ABG pCO2 POC ABG pO2 Sodium 158 H Potassium Chloride 118.6 H Carbon Dioxide BUN 30 H Creatinine Glucose 330 H POC Glucose 335 H Calcium 8.3 L Phosphorus Iron TIBC Lactate Dehydrogenase Total Creatine Kinase NT-Pro-B Natriuret Pep Total Protein Albumin Vpgyc-4-Cjsoytmeb Vpcig-4-Gafvedyez Beta Globulins PEP Interpretation Cholesterol LDL Cholesterol Direct Vitamin B12 Urine WBC (Auto) Urine Creatinine Crossmatch 04/10/16 04/11/16 04/11/16 16:21 00:29 07:47 WBC RBC Hgb Hct MCV MCH MCHC RDW Plt Count Lymph % (Auto) [place] % (Auto) Lymph # [place] # Baso # Seg Neutrophils % Seg Neuts % (Manual) Lymphocytes % (Manual) Monocytes % (Manual) Seg Neutrophils # Seg Neutrophils # Man Lymphocytes # (Manual) Monocytes # (Manual) Basophils # (Manual) Percent Retic PT 18.4 H INR 1.53 H APTT Heparin Anti-Xa Level POC ABG pH POC ABG pCO2 POC ABG pO2 Sodium Potassium Chloride Carbon Dioxide BUN Creatinine Glucose POC Glucose 230 H 162 H Calcium Phosphorus Iron TIBC Lactate Dehydrogenase Total Creatine Kinase NT-Pro-B Natriuret Pep Total Protein Albumin Nonno-2-Zewcuearo Ispox-4-Fnnekdxaa Beta Globulins PEP Interpretation Cholesterol LDL Cholesterol Direct Vitamin B12 Urine WBC (Auto) Urine Creatinine Crossmatch 04/11/16 04/11/16 04/12/16 07:47 11:22 04:54 WBC RBC Hgb 11.0 L Hct 35.0 L MCV MCH MCHC RDW Plt Count Lymph % (Auto) [place] % (Auto) Lymph # [place] # Baso # Seg Neutrophils % Seg Neuts % (Manual) Lymphocytes % (Manual) Monocytes % (Manual) Seg Neutrophils # Seg Neutrophils # Man Lymphocytes # (Manual) Monocytes # (Manual) Basophils # (Manual) Percent Retic PT INR APTT Heparin Anti-Xa Level POC ABG pH POC ABG pCO2 POC ABG pO2 Sodium 155 H Potassium Chloride 114.5 H Carbon Dioxide BUN 23 H Creatinine Glucose 157 H POC Glucose 229 H Calcium Phosphorus Iron TIBC Lactate Dehydrogenase Total Creatine Kinase NT-Pro-B Natriuret Pep Total Protein Albumin Emsrp-8-Kmaxjhgnt Gbddo-2-Fbkddwnhf Beta Globulins PEP Interpretation Cholesterol LDL Cholesterol Direct Vitamin B12 Urine WBC (Auto) Urine Creatinine Crossmatch 04/12/16 04/12/16 04/12/16 04:54 04:54 05:57 WBC RBC Hgb Hct MCV MCH MCHC RDW Plt Count Lymph % (Auto) [place] % (Auto) Lymph # [place] # Baso # Seg Neutrophils % Seg Neuts % (Manual) Lymphocytes % (Manual) Monocytes % (Manual) Seg Neutrophils # Seg Neutrophils # Man Lymphocytes # (Manual) Monocytes # (Manual) Basophils # (Manual) Percent Retic PT 22.5 H INR 1.98 H APTT Heparin Anti-Xa Level 0.19 L POC ABG pH POC ABG pCO2 POC ABG pO2 Sodium 156 H Potassium Chloride 115.4 H Carbon Dioxide BUN 23 H Creatinine Glucose 143 H POC Glucose 194 H Calcium Phosphorus Iron TIBC Lactate Dehydrogenase Total Creatine Kinase NT-Pro-B Natriuret Pep Total Protein Albumin Vtnhd-2-Axozcfffe Rwkoy-2-Inzpseqzr Beta Globulins PEP Interpretation Cholesterol LDL Cholesterol Direct Vitamin B12 Urine WBC (Auto) Urine Creatinine Crossmatch 04/12/16 04/12/16 04/12/16 12:34 19:01 23:30 WBC RBC Hgb Hct MCV MCH MCHC RDW Plt Count Lymph % (Auto) [place] % (Auto) Lymph # [place] # Baso # Seg Neutrophils % Seg Neuts % (Manual) Lymphocytes % (Manual) Monocytes % (Manual) Seg Neutrophils # Seg Neutrophils # Man Lymphocytes # (Manual) Monocytes # (Manual) Basophils # (Manual) Percent Retic PT INR APTT Heparin Anti-Xa Level POC ABG pH POC ABG pCO2 POC ABG pO2 Sodium Potassium Chloride Carbon Dioxide BUN Creatinine Glucose POC Glucose 291 H 235 H 154 H Calcium Phosphorus Iron TIBC Lactate Dehydrogenase Total Creatine Kinase NT-Pro-B Natriuret Pep Total Protein Albumin Swvlo-8-Yjbhuodsk Stzqj-1-Rftiphvlo Beta Globulins PEP Interpretation Cholesterol LDL Cholesterol Direct Vitamin B12 Urine WBC (Auto) Urine Creatinine Crossmatch 04/13/16 04/13/16 04/13/16 05:16 05:16 05:28 WBC RBC Hgb Hct MCV MCH MCHC RDW Plt Count Lymph % (Auto) [place] % (Auto) Lymph # [place] # Baso # Seg Neutrophils % Seg Neuts % (Manual) Lymphocytes % (Manual) Monocytes % (Manual) Seg Neutrophils # Seg Neutrophils # Man Lymphocytes # (Manual) Monocytes # (Manual) Basophils # (Manual) Percent Retic PT 27.0 H INR 2.49 H APTT Heparin Anti-Xa Level 0.20 L POC ABG pH POC ABG pCO2 POC ABG pO2 Sodium 150 H Potassium Chloride 110.5 H Carbon Dioxide BUN 21 H Creatinine Glucose 159 H POC Glucose 177 H Calcium Phosphorus Iron TIBC Lactate Dehydrogenase Total Creatine Kinase NT-Pro-B Natriuret Pep Total Protein Albumin Ctcwz-7-Hyvtnngdj Cjumq-9-Ihpdidyuk Beta Globulins PEP Interpretation Cholesterol LDL Cholesterol Direct Vitamin B12 Urine WBC (Auto) Urine Creatinine Crossmatch 04/13/16 04/13/16 04/14/16 11:30 17:54 00:44 WBC RBC Hgb Hct MCV MCH MCHC RDW Plt Count Lymph % (Auto) [place] % (Auto) Lymph # [place] # Baso # Seg Neutrophils % Seg Neuts % (Manual) Lymphocytes % (Manual) Monocytes % (Manual) Seg Neutrophils # Seg Neutrophils # Man Lymphocytes # (Manual) Monocytes # (Manual) Basophils # (Manual) Percent Retic PT INR APTT Heparin Anti-Xa Level POC ABG pH POC ABG pCO2 POC ABG pO2 Sodium Potassium Chloride Carbon Dioxide BUN Creatinine Glucose POC Glucose 181 H 251 H 237 H Calcium Phosphorus Iron TIBC Lactate Dehydrogenase Total Creatine Kinase NT-Pro-B Natriuret Pep Total Protein Albumin Ynjdc-8-Mwsnuljqd Bsxpl-0-Vlrdfwnnw Beta Globulins PEP Interpretation Cholesterol LDL Cholesterol Direct Vitamin B12 Urine WBC (Auto) Urine Creatinine Crossmatch 04/14/16 04/14/16 04/14/16 05:00 05:42 05:42 WBC RBC Hgb Hct MCV MCH MCHC RDW Plt Count Lymph % (Auto) [place] % (Auto) Lymph # [place] # Baso # Seg Neutrophils % Seg Neuts % (Manual) Lymphocytes % (Manual) Monocytes % (Manual) Seg Neutrophils # Seg Neutrophils # Man Lymphocytes # (Manual) Monocytes # (Manual) Basophils # (Manual) Percent Retic PT 30.3 H INR 2.88 H APTT Heparin Anti-Xa Level 0.27 L POC ABG pH POC ABG pCO2 POC ABG pO2 Sodium Potassium 3.5 L Chloride Carbon Dioxide BUN Creatinine Glucose 160 H POC Glucose Calcium 8.2 L Phosphorus Iron TIBC Lactate Dehydrogenase Total Creatine Kinase NT-Pro-B Natriuret Pep Total Protein Albumin Hbjme-0-Mlpixuxli Zdxfd-2-Xqqdegmvs Beta Globulins PEP Interpretation Cholesterol LDL Cholesterol Direct Vitamin B12 Urine WBC (Auto) Urine Creatinine Crossmatch 04/14/16 04/14/16 04/14/16 06:02 06:16 09:18 WBC 12.3 H RBC Hgb 11.4 L Hct MCV 82 L MCH 26 L MCHC RDW Plt Count Lymph % (Auto) [place] % (Auto) Lymph # [place] # Baso # Seg Neutrophils % Seg Neuts % (Manual) Lymphocytes % (Manual) Monocytes % (Manual) Seg Neutrophils # Seg Neutrophils # Man Lymphocytes # (Manual) Monocytes # (Manual) Basophils # (Manual) Percent Retic PT INR APTT Heparin Anti-Xa Level POC ABG pH POC ABG pCO2 POC ABG pO2 Sodium Potassium Chloride Carbon Dioxide BUN Creatinine Glucose POC Glucose 156 H 164 H Calcium Phosphorus Iron TIBC Lactate Dehydrogenase Total Creatine Kinase NT-Pro-B Natriuret Pep Total Protein Albumin Rrnex-[id number] Ubxja-4-[id number] Beta Globulins PEP Interpretation Cholesterol LDL Cholesterol Direct Vitamin B12 Urine WBC (Auto) Urine Creatinine Crossmatch 04/14/16 04/15/16 04/15/16 13:58 01:07 06:04 WBC RBC Hgb Hct MCV MCH MCHC RDW Plt Count Lymph % (Auto) [place] % (Auto) Lymph # [place] # Baso # Seg Neutrophils % Seg Neuts % (Manual) Lymphocytes % (Manual) Monocytes % (Manual) Seg Neutrophils # Seg Neutrophils # Man Lymphocytes # (Manual) Monocytes # (Manual) Basophils # (Manual) Percent Retic PT 24.9 H INR 2.25 H APTT Heparin Anti-Xa Level POC ABG pH POC ABG pCO2 POC ABG pO2 Sodium Potassium Chloride Carbon Dioxide BUN Creatinine Glucose POC Glucose 109 H 154 H Calcium Phosphorus Iron TIBC Lactate Dehydrogenase Total Creatine Kinase NT-Pro-B Natriuret Pep Total Protein Albumin Udlej-4-Ovvdhspqp Yxcib-2-Zxhwbpcqk Beta Globulins PEP Interpretation Cholesterol LDL Cholesterol Direct Vitamin B12 Urine WBC (Auto) Urine Creatinine Crossmatch 04/15/16 04/15/16 04/16/16 06:08 12:41 00:38 WBC RBC Hgb Hct MCV MCH MCHC RDW Plt Count Lymph % (Auto) [place] % (Auto) Lymph # [place] # Baso # Seg Neutrophils % Seg Neuts % (Manual) Lymphocytes % (Manual) Monocytes % (Manual) Seg Neutrophils # Seg Neutrophils # Man Lymphocytes # (Manual) Monocytes # (Manual) Basophils # (Manual) Percent Retic PT INR APTT Heparin Anti-Xa Level POC ABG pH POC ABG pCO2 POC ABG pO2 Sodium Potassium Chloride Carbon Dioxide BUN Creatinine Glucose POC Glucose 165 H 223 H 216 H Calcium Phosphorus Iron TIBC Lactate Dehydrogenase Total Creatine Kinase NT-Pro-B Natriuret Pep Total Protein Albumin Lkwxh-6-Wissbclqz Hlzjt-5-Qlgtjvqxe Beta Globulins PEP Interpretation Cholesterol LDL Cholesterol Direct Vitamin B12 Urine WBC (Auto) Urine Creatinine Crossmatch 04/16/16 04/16/16 04/16/16 05:45 07:09 14:00 WBC RBC Hgb Hct MCV MCH MCHC RDW Plt Count Lymph % (Auto) [place] % (Auto) Lymph # [place] # Baso # Seg Neutrophils % Seg Neuts % (Manual) Lymphocytes % (Manual) Monocytes % (Manual) Seg Neutrophils # Seg Neutrophils # Man Lymphocytes # (Manual) Monocytes # (Manual) Basophils # (Manual) Percent Retic PT 19.4 H INR 1.64 H APTT Heparin Anti-Xa Level 0.10 L POC ABG pH POC ABG pCO2 POC ABG pO2 Sodium Potassium Chloride Carbon Dioxide BUN Creatinine Glucose POC Glucose 207 H 69 L Calcium Phosphorus Iron TIBC Lactate Dehydrogenase Total Creatine Kinase NT-Pro-B Natriuret Pep Total Protein Albumin Etzpk-0-Kvejwkpoe Werkx-3-Yvyincdzx Beta Globulins PEP Interpretation Cholesterol LDL Cholesterol Direct Vitamin B12 Urine WBC (Auto) Urine Creatinine Crossmatch 04/16/16 04/16/16 04/16/16 17:40 17:52 19:38 WBC RBC Hgb Hct MCV MCH MCHC RDW Plt Count Lymph % (Auto) [place] % (Auto) Lymph # [place] # Baso # Seg Neutrophils % Seg Neuts % (Manual) Lymphocytes % (Manual) Monocytes % (Manual) Seg Neutrophils # Seg Neutrophils # Man Lymphocytes # (Manual) Monocytes # (Manual) Basophils # (Manual) Percent Retic PT INR APTT Heparin Anti-Xa Level 0.26 L POC ABG pH 7.543 H 7.488 H POC ABG pCO2 26.3 L 30.3 L POC ABG pO2 55 L 203 H Sodium Potassium Chloride Carbon Dioxide BUN Creatinine Glucose POC Glucose Calcium Phosphorus Iron TIBC Lactate Dehydrogenase Total Creatine Kinase NT-Pro-B Natriuret Pep Total Protein Albumin Yqyxt-9-Szyhpoadx Egmed-6-Xyqjbmfyn Beta Globulins PEP Interpretation Cholesterol LDL Cholesterol Direct Vitamin B12 Urine WBC (Auto) Urine Creatinine Crossmatch 04/17/16 04/17/16 04/17/16 00:04 05:10 05:36 WBC RBC Hgb Hct MCV MCH MCHC RDW Plt Count Lymph % (Auto) [place] % (Auto) Lymph # [place] # Baso # Seg Neutrophils % Seg Neuts % (Manual) Lymphocytes % (Manual) Monocytes % (Manual) Seg Neutrophils # Seg Neutrophils # Man Lymphocytes # (Manual) Monocytes # (Manual) Basophils # (Manual) Percent Retic PT INR APTT Heparin Anti-Xa Level POC ABG pH POC ABG pCO2 32.7 L POC ABG pO2 68 L Sodium Potassium Chloride Carbon Dioxide BUN Creatinine Glucose POC Glucose 113 H 161 H Calcium Phosphorus Iron TIBC Lactate Dehydrogenase Total Creatine Kinase NT-Pro-B Natriuret Pep Total Protein Albumin Qvzmu-7-Krpkincwr Czlcq-5-Gaapgmqtf Beta Globulins PEP Interpretation Cholesterol LDL Cholesterol Direct Vitamin B12 Urine WBC (Auto) Urine Creatinine Crossmatch 04/17/16 04/17/16 04/17/16 05:41 08:37 11:46 WBC RBC Hgb Hct MCV MCH MCHC RDW Plt Count Lymph % (Auto) [place] % (Auto) Lymph # [place] # Baso # Seg Neutrophils % Seg Neuts % (Manual) Lymphocytes % (Manual) Monocytes % (Manual) Seg Neutrophils # Seg Neutrophils # Man Lymphocytes # (Manual) Monocytes # (Manual) Basophils # (Manual) Percent Retic PT 17.4 H INR 1.43 H APTT Heparin Anti-Xa Level POC ABG pH POC ABG pCO2 POC ABG pO2 Sodium Potassium Chloride Carbon Dioxide BUN Creatinine Glucose POC Glucose 154 H 138 H Calcium Phosphorus Iron TIBC Lactate Dehydrogenase Total Creatine Kinase NT-Pro-B Natriuret Pep Total Protein Albumin Khvcv-8-Hbgqjcosf Gkzjj-5-Ylozrjsfk Beta Globulins PEP Interpretation Cholesterol LDL Cholesterol Direct Vitamin B12 Urine WBC (Auto) Urine Creatinine Crossmatch 04/17/16 04/17/16 04/17/16 12: 12: 21:20 WBC 16.5 H RBC 3.31 L Hgb 8.8 L Hct 26.9 L MCV 81 L MCH 27 L MCHC RDW 15.5 H Plt Count Lymph % (Auto) [place] % (Auto) Lymph # [place] # Baso # Seg Neutrophils % Seg Neuts % (Manual) Lymphocytes % (Manual) 3.0 L Monocytes % (Manual) Seg Neutrophils # Seg Neutrophils # Man 10.1 H Lymphocytes # (Manual) 0.5 L Monocytes # (Manual) Basophils # (Manual) Percent Retic PT INR APTT Heparin Anti-Xa Level 0.14 L POC ABG pH POC ABG pCO2 POC ABG pO2 Sodium Potassium Chloride Carbon Dioxide 21 L BUN 38 H Creatinine 1.8 H D Glucose 131 H POC Glucose Calcium 7.6 L Phosphorus Iron TIBC Lactate Dehydrogenase Total Creatine Kinase NT-Pro-B Natriuret Pep Total Protein Albumin Rftnx-3-Wnrqwudkx Juirn-5-Cyidfpttl Beta Globulins PEP Interpretation Cholesterol LDL Cholesterol Direct Vitamin B12 Urine WBC (Auto) Urine Creatinine Crossmatch 04/17/16 04/17/16 04/18/16 23:38 23:41 00:21 WBC RBC Hgb Hct MCV MCH MCHC RDW Plt Count Lymph % (Auto) [place] % (Auto) Lymph # [place] # Baso # Seg Neutrophils % Seg Neuts % (Manual) Lymphocytes % (Manual) Monocytes % (Manual) Seg Neutrophils # Seg Neutrophils # Man Lymphocytes # (Manual) Monocytes # (Manual) Basophils # (Manual) Percent Retic PT INR APTT Heparin Anti-Xa Level POC ABG pH POC ABG pCO2 POC ABG pO2 Sodium Potassium Chloride Carbon Dioxide BUN Creatinine Glucose POC Glucose < 40 L < 40 L 223 H Calcium Phosphorus Iron TIBC Lactate Dehydrogenase Total Creatine Kinase NT-Pro-B Natriuret Pep Total Protein Albumin Zqxtj-9-Geftfbnul Drgwx-1-Nybnhhvnp Beta Globulins PEP Interpretation Cholesterol LDL Cholesterol Direct Vitamin B12 Urine WBC (Auto) Urine Creatinine Crossmatch 04/18/16 04/18/16 04/18/16 05:01 05:20 05:20 WBC 17.6 H RBC 3.44 L Hgb 9.1 L Hct 27.8 L MCV 81 L MCH 26 L MCHC RDW 15.5 H Plt Count Lymph % (Auto) 2.7 L [place] % (Auto) 8.3 H Lymph # 0.5 L [place] # 1.5 H Baso # Seg Neutrophils % 88.4 H Seg Neuts % (Manual) Lymphocytes % (Manual) Monocytes % (Manual) Seg Neutrophils # 15.6 H Seg Neutrophils # Man Lymphocytes # (Manual) Monocytes # (Manual) Basophils # (Manual) Percent Retic PT 17.4 H INR 1.43 H APTT Heparin Anti-Xa Level POC ABG pH 7.528 H POC ABG pCO2 27.9 L POC ABG pO2 Sodium Potassium Chloride Carbon Dioxide BUN Creatinine Glucose POC Glucose Calcium Phosphorus Iron TIBC Lactate Dehydrogenase Total Creatine Kinase NT-Pro-B Natriuret Pep Total Protein Albumin Shnnt-2-Qymnntsuc Qgmjs-0-Rccmzuyra Beta Globulins PEP Interpretation Cholesterol LDL Cholesterol Direct Vitamin B12 Urine WBC (Auto) Urine Creatinine Crossmatch 04/18/16 04/18/16 04/18/16 05:20 05:31 06:50 WBC RBC Hgb Hct MCV MCH MCHC RDW Plt Count Lymph % (Auto) [place] % (Auto) Lymph # [place] # Baso # Seg Neutrophils % Seg Neuts % (Manual) Lymphocytes % (Manual) Monocytes % (Manual) Seg Neutrophils # Seg Neutrophils # Man Lymphocytes # (Manual) Monocytes # (Manual) Basophils # (Manual) Percent Retic PT INR APTT Heparin Anti-Xa Level POC ABG pH POC ABG pCO2 POC ABG pO2 Sodium Potassium 3.4 L Chloride Carbon Dioxide 21 L BUN 22 H Creatinine Glucose POC Glucose 61 L 124 H Calcium 8.0 L Phosphorus Iron TIBC Lactate Dehydrogenase Total Creatine Kinase NT-Pro-B Natriuret Pep Total Protein Albumin Xrxyi-9-Tvdrcybcf Xvjkf-8-Zekflzxln Beta Globulins PEP Interpretation Cholesterol LDL Cholesterol Direct Vitamin B12 Urine WBC (Auto) Urine Creatinine Crossmatch 12/04/18/16 04/19/16 17:42 22:40 00:31 WBC RBC Hgb Hct MCV MCH MCHC RDW Plt Count Lymph % (Auto) [place] % (Auto) Lymph # [place] # Baso # Seg Neutrophils % Seg Neuts % (Manual) Lymphocytes % (Manual) Monocytes % (Manual) Seg Neutrophils # Seg Neutrophils # Man Lymphocytes # (Manual) Monocytes # (Manual) Basophils # (Manual) Percent Retic PT INR APTT Heparin Anti-Xa Level < 0.10 L POC ABG pH POC ABG pCO2 POC ABG pO2 Sodium Potassium Chloride Carbon Dioxide BUN Creatinine Glucose POC Glucose 159 H 134 H Calcium Phosphorus Iron TIBC Lactate Dehydrogenase Total Creatine Kinase NT-Pro-B Natriuret Pep Total Protein Albumin Tfevh-6-Tkrkbnpjk Phozk-0-Jkvcaqgfi Beta Globulins PEP Interpretation Cholesterol LDL Cholesterol Direct Vitamin B12 Urine WBC (Auto) Urine Creatinine Crossmatch 04/19/16 04/19/16 04/19/16 04:18 04:18 04:25 WBC 19.0 H RBC 3.58 L Hgb 9.3 L Hct 28.8 L MCV 80 L MCH 26 L MCHC RDW 15.5 H Plt Count Lymph % (Auto) 2.8 L [place] % (Auto) 7.4 H Lymph # 0.5 L [place] # 1.4 H Baso # Seg Neutrophils % 89.4 H Seg Neuts % (Manual) Lymphocytes % (Manual) Monocytes % (Manual) Seg Neutrophils # 17.0 H Seg Neutrophils # Man Lymphocytes # (Manual) Monocytes # (Manual) Basophils # (Manual) Percent Retic PT INR APTT Heparin Anti-Xa Level POC ABG pH 7.527 H POC ABG pCO2 27.1 L POC ABG pO2 Sodium Potassium Chloride Carbon Dioxide BUN 22 H Creatinine Glucose 215 H POC Glucose Calcium 8.0 L Phosphorus Iron TIBC Lactate Dehydrogenase Total Creatine Kinase NT-Pro-B Natriuret Pep Total Protein Albumin Isast-4-Kldtjotth Vzrdq-4-Ubikuxymz Beta Globulins PEP Interpretation Cholesterol LDL Cholesterol Direct Vitamin B12 Urine WBC (Auto) Urine Creatinine Crossmatch 04/19/16 04/19/16 04/19/16 05:45 08:10 14:08 WBC RBC Hgb Hct MCV MCH MCHC RDW Plt Count Lymph % (Auto) [place] % (Auto) Lymph # [place] # Baso # Seg Neutrophils % Seg Neuts % (Manual) Lymphocytes % (Manual) Monocytes % (Manual) Seg Neutrophils # Seg Neutrophils # Man Lymphocytes # (Manual) Monocytes # (Manual) Basophils # (Manual) Percent Retic PT 22.1 H INR 1.93 H APTT Heparin Anti-Xa Level 0.17 L POC ABG pH POC ABG pCO2 POC ABG pO2 Sodium Potassium Chloride Carbon Dioxide BUN Creatinine Glucose POC Glucose 196 H 318 H Calcium Phosphorus Iron TIBC Lactate Dehydrogenase Total Creatine Kinase NT-Pro-B Natriuret Pep Total Protein Albumin Aiobi-6-Bllardjae Nmiku-8-Iipawwnfu Beta Globulins PEP Interpretation Cholesterol LDL Cholesterol Direct Vitamin B12 Urine WBC (Auto) Urine Creatinine Crossmatch 04/19/16 04/20/16 04/20/16 17:27 03:55 03:55 WBC 18.5 H RBC 3.19 L Hgb 8.4 L Hct 25.7 L MCV 80 L MCH 26 L MCHC RDW 15.9 H Plt Count Lymph % (Auto) 4.3 L [place] % (Auto) 10.1 H Lymph # 0.8 L [place] # 1.9 H Baso # Seg Neutrophils % 85.2 H Seg Neuts % (Manual) Lymphocytes % (Manual) Monocytes % (Manual) Seg Neutrophils # 15.8 H Seg Neutrophils # Man Lymphocytes # (Manual) Monocytes # (Manual) Basophils # (Manual) Percent Retic PT 22.0 H INR 1.92 H APTT Heparin Anti-Xa Level 0.14 L POC ABG pH POC ABG pCO2 POC ABG pO2 Sodium Potassium Chloride Carbon Dioxide BUN Creatinine Glucose POC Glucose 230 H Calcium Phosphorus Iron TIBC Lactate Dehydrogenase Total Creatine Kinase NT-Pro-B Natriuret Pep Total Protein Albumin Pskym-6-Sbfzlptwz Zqiwm-4-Lrtyhzymk Beta Globulins PEP Interpretation Cholesterol LDL Cholesterol Direct Vitamin B12 Urine WBC (Auto) Urine Creatinine Crossmatch 04/20/16 04/20/16 04/20/16 03:55 04:16 05:52 WBC RBC Hgb Hct MCV MCH MCHC RDW Plt Count Lymph % (Auto) [place] % (Auto) Lymph # [place] # Baso # Seg Neutrophils % Seg Neuts % (Manual) Lymphocytes % (Manual) Monocytes % (Manual) Seg Neutrophils # Seg Neutrophils # Man Lymphocytes # (Manual) Monocytes # (Manual) Basophils # (Manual) Percent Retic PT INR APTT Heparin Anti-Xa Level POC ABG pH 7.474 H POC ABG pCO2 26.5 L POC ABG pO2 Sodium Potassium Chloride Carbon Dioxide 18 L BUN 38 H Creatinine 2.7 H D Glucose 159 H POC Glucose 214 H Calcium 8.0 L Phosphorus Iron TIBC Lactate Dehydrogenase Total Creatine Kinase NT-Pro-B Natriuret Pep Total Protein Albumin Eerto-3-Iegtlomlp Qlcth-6-Lnpjglsfj Beta Globulins PEP Interpretation Cholesterol LDL Cholesterol Direct Vitamin B12 Urine WBC (Auto) Urine Creatinine Crossmatch 04/20/16 04/20/16 04/20/16 10:32 11:27 11:50 WBC RBC Hgb Hct MCV MCH MCHC RDW Plt Count Lymph % (Auto) [place] % (Auto) Lymph # [place] # Baso # Seg Neutrophils % Seg Neuts % (Manual) Lymphocytes % (Manual) Monocytes % (Manual) Seg Neutrophils # Seg Neutrophils # Man Lymphocytes # (Manual) Monocytes # (Manual) Basophils # (Manual) Percent Retic PT INR APTT Heparin Anti-Xa Level POC ABG pH POC ABG pCO2 POC ABG pO2 Sodium Potassium Chloride Carbon Dioxide 20 L BUN 45 H Creatinine 3.0 H Glucose 215 H POC Glucose 248 H Calcium 8.0 L Phosphorus Iron TIBC Lactate Dehydrogenase Total Creatine Kinase NT-Pro-B Natriuret Pep Total Protein Albumin Seswl-4-Gxwaaxztm Izrbj-6-Xxxnmjcty Beta Globulins PEP Interpretation Cholesterol LDL Cholesterol Direct Vitamin B12 Urine WBC (Auto) Urine Creatinine 85.5 H Crossmatch 04/20/16 04/21/16 04/21/16 16:59 00:13 04:29 WBC RBC Hgb Hct MCV MCH MCHC RDW Plt Count Lymph % (Auto) [place] % (Auto) Lymph # [place] # Baso # Seg Neutrophils % Seg Neuts % (Manual) Lymphocytes % (Manual) Monocytes % (Manual) Seg Neutrophils # Seg Neutrophils # Man Lymphocytes # (Manual) Monocytes # (Manual) Basophils # (Manual) Percent Retic PT 18.1 H INR 1.50 H APTT Heparin Anti-Xa Level 0.10 L POC ABG pH POC ABG pCO2 POC ABG pO2 Sodium Potassium Chloride Carbon Dioxide BUN Creatinine Glucose POC Glucose 312 H 287 H Calcium Phosphorus Iron TIBC Lactate Dehydrogenase Total Creatine Kinase NT-Pro-B Natriuret Pep Total Protein Albumin Wkalc-5-Tyrirlzpv Uhwit-9-Xhtgknnvg Beta Globulins PEP Interpretation Cholesterol LDL Cholesterol Direct Vitamin B12 Urine WBC (Auto) Urine Creatinine Crossmatch 12/04/21/16 04/21/16 04:29 04:29 04:55 WBC 15.4 H RBC 3.24 L Hgb 8.4 L Hct 25.6 L MCV 79 L MCH 26 L MCHC RDW 16.1 H Plt Count Lymph % (Auto) 6.8 L [place] % (Auto) 12.9 H Lymph # 1.0 L [place] # 2.0 H Baso # Seg Neutrophils % 79.8 H Seg Neuts % (Manual) Lymphocytes % (Manual) Monocytes % (Manual) Seg Neutrophils # 12.3 H Seg Neutrophils # Man Lymphocytes # (Manual) Monocytes # (Manual) Basophils # (Manual) Percent Retic PT INR APTT Heparin Anti-Xa Level POC ABG pH 7.512 H POC ABG pCO2 25.4 L POC ABG pO2 Sodium 135 L Potassium Chloride Carbon Dioxide 18 L BUN 57 H Creatinine 3.9 H Glucose 202 H POC Glucose Calcium 8.0 L Phosphorus Iron TIBC Lactate Dehydrogenase Total Creatine Kinase NT-Pro-B Natriuret Pep Total Protein Albumin Eoiyu-8-Fvcfyexte Khyxd-1-Vxwirijcr Beta Globulins PEP Interpretation Cholesterol LDL Cholesterol Direct Vitamin B12 Urine WBC (Auto) Urine Creatinine Crossmatch 04/21/16 04/21/16 04/21/16 05:20 12:08 12:16 WBC RBC Hgb Hct MCV MCH MCHC RDW Plt Count Lymph % (Auto) [place] % (Auto) Lymph # [place] # Baso # Seg Neutrophils % Seg Neuts % (Manual) Lymphocytes % (Manual) Monocytes % (Manual) Seg Neutrophils # Seg Neutrophils # Man Lymphocytes # (Manual) Monocytes # (Manual) Basophils # (Manual) Percent Retic PT INR APTT Heparin Anti-Xa Level 0.16 L POC ABG pH POC ABG pCO2 POC ABG pO2 Sodium Potassium Chloride Carbon Dioxide BUN Creatinine Glucose POC Glucose 203 H 221 H Calcium Phosphorus Iron TIBC Lactate Dehydrogenase Total Creatine Kinase NT-Pro-B Natriuret Pep Total Protein Albumin Pqewj-9-Rfueoguzj Zllbi-4-Yuqopwfty Beta Globulins PEP Interpretation Cholesterol LDL Cholesterol Direct Vitamin B12 Urine WBC (Auto) Urine Creatinine Crossmatch 04/21/16 04/22/16 04/22/16 17:22 05:01 05:20 WBC RBC Hgb Hct MCV MCH MCHC RDW Plt Count Lymph % (Auto) [place] % (Auto) Lymph # [place] # Baso # Seg Neutrophils % Seg Neuts % (Manual) Lymphocytes % (Manual) Monocytes % (Manual) Seg Neutrophils # Seg Neutrophils # Man Lymphocytes # (Manual) Monocytes # (Manual) Basophils # (Manual) Percent Retic PT 17.5 H INR 1.44 H APTT Heparin Anti-Xa Level POC ABG pH 7.460 H POC ABG pCO2 27.9 L POC ABG pO2 Sodium Potassium Chloride Carbon Dioxide BUN Creatinine Glucose POC Glucose 189 H Calcium Phosphorus Iron TIBC Lactate Dehydrogenase Total Creatine Kinase NT-Pro-B Natriuret Pep Total Protein Albumin Anepg-3-Kdnthfnlu Fxkng-9-Lrkubylzp Beta Globulins PEP Interpretation Cholesterol LDL Cholesterol Direct Vitamin B12 Urine WBC (Auto) Urine Creatinine Crossmatch 04/22/16 04/22/16 04/22/16 05:43 06:40 08:08 WBC RBC Hgb Hct MCV MCH MCHC RDW Plt Count Lymph % (Auto) [place] % (Auto) Lymph # [place] # Baso # Seg Neutrophils % Seg Neuts % (Manual) Lymphocytes % (Manual) Monocytes % (Manual) Seg Neutrophils # Seg Neutrophils # Man Lymphocytes # (Manual) Monocytes # (Manual) Basophils # (Manual) Percent Retic PT INR APTT Heparin Anti-Xa Level POC ABG pH POC ABG pCO2 POC ABG pO2 Sodium Potassium Chloride Carbon Dioxide BUN Creatinine Glucose POC Glucose 56 L 136 H 134 H Calcium Phosphorus Iron TIBC Lactate Dehydrogenase Total Creatine Kinase NT-Pro-B Natriuret Pep Total Protein Albumin Zozbk-9-Fyuiwlztg Jrsfw-9-Oggkrjqee Beta Globulins PEP Interpretation Cholesterol LDL Cholesterol Direct Vitamin B12 Urine WBC (Auto) Urine Creatinine Crossmatch 04/22/16 04/22/16 04/22/16 11:18 12:10 18:17 WBC RBC Hgb Hct MCV MCH MCHC RDW Plt Count Lymph % (Auto) [place] % (Auto) Lymph # [place] # Baso # Seg Neutrophils % Seg Neuts % (Manual) Lymphocytes % (Manual) Monocytes % (Manual) Seg Neutrophils # Seg Neutrophils # Man Lymphocytes # (Manual) Monocytes # (Manual) Basophils # (Manual) Percent Retic PT INR APTT Heparin Anti-Xa Level 0.12 L POC ABG pH POC ABG pCO2 POC ABG pO2 Sodium Potassium Chloride Carbon Dioxide BUN Creatinine Glucose POC Glucose 142 H 227 H Calcium Phosphorus Iron TIBC Lactate Dehydrogenase Total Creatine Kinase NT-Pro-B Natriuret Pep Total Protein Albumin Glygf-1-Agkhskmxt Dxmnn-6-Txtufewdf Beta Globulins PEP Interpretation Cholesterol LDL Cholesterol Direct Vitamin B12 Urine WBC (Auto) Urine Creatinine Crossmatch 04/22/16 04/22/16 04/23/16 22:28 23:47 04:49 WBC RBC Hgb Hct MCV MCH MCHC RDW Plt Count Lymph % (Auto) [place] % (Auto) Lymph # [place] # Baso # Seg Neutrophils % Seg Neuts % (Manual) Lymphocytes % (Manual) Monocytes % (Manual) Seg Neutrophils # Seg Neutrophils # Man Lymphocytes # (Manual) Monocytes # (Manual) Basophils # (Manual) Percent Retic PT INR APTT Heparin Anti-Xa Level 0.16 L POC ABG pH POC ABG pCO2 32.6 L POC ABG pO2 122 H Sodium Potassium Chloride Carbon Dioxide BUN Creatinine Glucose POC Glucose 266 H Calcium Phosphorus Iron TIBC Lactate Dehydrogenase Total Creatine Kinase NT-Pro-B Natriuret Pep Total Protein Albumin Mwsxm-4-Fekpbsvru Eqefs-0-Zorbjmgxu Beta Globulins PEP Interpretation Cholesterol LDL Cholesterol Direct Vitamin B12 Urine WBC (Auto) Urine Creatinine Crossmatch 04/23/16 04/23/16 04/23/16 05:41 08:05 08:34 WBC RBC Hgb Hct MCV MCH MCHC RDW Plt Count Lymph % (Auto) [place] % (Auto) Lymph # [place] # Baso # Seg Neutrophils % Seg Neuts % (Manual) Lymphocytes % (Manual) Monocytes % (Manual) Seg Neutrophils # Seg Neutrophils # Man Lymphocytes # (Manual) Monocytes # (Manual) Basophils # (Manual) Percent Retic PT INR APTT Heparin Anti-Xa Level POC ABG pH POC ABG pCO2 POC ABG pO2 Sodium Potassium Chloride 109.5 H Carbon Dioxide 21 L BUN 23 H Creatinine Glucose 227 H POC Glucose 227 H 224 H Calcium 8.2 L Phosphorus Iron TIBC Lactate Dehydrogenase Total Creatine Kinase NT-Pro-B Natriuret Pep Total Protein Albumin Dkpjr-6-Wukxkucwr Eqdlw-5-Sdkvvnjgj Beta Globulins PEP Interpretation Cholesterol LDL Cholesterol Direct Vitamin B12 Urine WBC (Auto) Urine Creatinine Crossmatch 04/23/16 04/23/16 04/23/16 10:45 11:37 22:49 WBC RBC Hgb Hct MCV MCH MCHC RDW Plt Count Lymph % (Auto) [place] % (Auto) Lymph # [place] # Baso # Seg Neutrophils % Seg Neuts % (Manual) Lymphocytes % (Manual) Monocytes % (Manual) Seg Neutrophils # Seg Neutrophils # Man Lymphocytes # (Manual) Monocytes # (Manual) Basophils # (Manual) Percent Retic PT 15.9 H INR 1.28 H APTT Heparin Anti-Xa Level 0.12 L POC ABG pH POC ABG pCO2 POC ABG pO2 Sodium Potassium Chloride Carbon Dioxide BUN Creatinine Glucose POC Glucose 256 H Calcium Phosphorus Iron TIBC Lactate Dehydrogenase Total Creatine Kinase NT-Pro-B Natriuret Pep Total Protein Albumin Sgjau-7-Assnkzqfm Sxhtq-5-Oumzkifcs Beta Globulins PEP Interpretation Cholesterol LDL Cholesterol Direct Vitamin B12 Urine WBC (Auto) Urine Creatinine Crossmatch 04/23/16 04/24/16 04/24/16 23:59 05:29 06:03 WBC RBC Hgb Hct MCV MCH MCHC RDW Plt Count Lymph % (Auto) [place] % (Auto) Lymph # [place] # Baso # Seg Neutrophils % Seg Neuts % (Manual) Lymphocytes % (Manual) Monocytes % (Manual) Seg Neutrophils # Seg Neutrophils # Man Lymphocytes # (Manual) Monocytes # (Manual) Basophils # (Manual) Percent Retic PT INR APTT Heparin Anti-Xa Level POC ABG pH 7.464 H POC ABG pCO2 32.4 L POC ABG pO2 115 H Sodium Potassium Chloride Carbon Dioxide BUN Creatinine Glucose POC Glucose 176 H 256 H Calcium Phosphorus Iron TIBC Lactate Dehydrogenase Total Creatine Kinase NT-Pro-B Natriuret Pep Total Protein Albumin Hjuop-6-Yfplujuyi Thbqq-1-Pitjbnnvc Beta Globulins PEP Interpretation Cholesterol LDL Cholesterol Direct Vitamin B12 Urine WBC (Auto) Urine Creatinine Crossmatch 04/24/16 04/24/16 04/24/16 07:59 12:10 17:17 WBC RBC Hgb Hct MCV MCH MCHC RDW Plt Count Lymph % (Auto) [place] % (Auto) Lymph # [place] # Baso # Seg Neutrophils % Seg Neuts % (Manual) Lymphocytes % (Manual) Monocytes % (Manual) Seg Neutrophils # Seg Neutrophils # Man Lymphocytes # (Manual) Monocytes # (Manual) Basophils # (Manual) Percent Retic PT INR APTT Heparin Anti-Xa Level 0.18 L POC ABG pH POC ABG pCO2 POC ABG pO2 Sodium Potassium Chloride Carbon Dioxide BUN Creatinine Glucose POC Glucose 304 H 325 H Calcium Phosphorus Iron TIBC Lactate Dehydrogenase Total Creatine Kinase NT-Pro-B Natriuret Pep Total Protein Albumin Kkmlo-3-Duhusppxn Hxkjo-9-Wrbifmawm Beta Globulins PEP Interpretation Cholesterol LDL Cholesterol Direct Vitamin B12 Urine WBC (Auto) Urine Creatinine Crossmatch 04/25/16 04/25/16 04/25/16 00:52 06:40 06:44 WBC RBC Hgb Hct MCV MCH MCHC RDW Plt Count Lymph % (Auto) [place] % (Auto) Lymph # [place] # Baso # Seg Neutrophils % Seg Neuts % (Manual) Lymphocytes % (Manual) Monocytes % (Manual) Seg Neutrophils # Seg Neutrophils # Man Lymphocytes # (Manual) Monocytes # (Manual) Basophils # (Manual) Percent Retic PT INR APTT Heparin Anti-Xa Level 0.11 L POC ABG pH POC ABG pCO2 POC ABG pO2 Sodium Potassium Chloride Carbon Dioxide BUN Creatinine Glucose POC Glucose 212 H 184 H Calcium Phosphorus Iron TIBC Lactate Dehydrogenase Total Creatine Kinase NT-Pro-B Natriuret Pep Total Protein Albumin Goqoo-6-Nerspmfas Xxidt-9-Sjalyyvnh Beta Globulins PEP Interpretation Cholesterol LDL Cholesterol Direct Vitamin B12 Urine WBC (Auto) Urine Creatinine Crossmatch 04/25/16 04/25/16 04/25/16 11:40 13:26 17:27 WBC RBC Hgb Hct MCV MCH MCHC RDW Plt Count Lymph % (Auto) [place] % (Auto) Lymph # [place] # Baso # Seg Neutrophils % Seg Neuts % (Manual) Lymphocytes % (Manual) Monocytes % (Manual) Seg Neutrophils # Seg Neutrophils # Man Lymphocytes # (Manual) Monocytes # (Manual) Basophils # (Manual) Percent Retic PT INR APTT Heparin Anti-Xa Level 0.21 L POC ABG pH POC ABG pCO2 POC ABG pO2 Sodium Potassium Chloride Carbon Dioxide BUN Creatinine Glucose POC Glucose 206 H 204 H Calcium Phosphorus Iron TIBC Lactate Dehydrogenase Total Creatine Kinase NT-Pro-B Natriuret Pep Total Protein Albumin [id number] Tnpgz-[id number] Beta Globulins PEP Interpretation Cholesterol LDL Cholesterol Direct Vitamin B12 Urine WBC (Auto) Urine Creatinine Crossmatch 04/25/16 04/26/16 04/26/16 23:46 06:31 11:51 WBC RBC Hgb Hct MCV MCH MCHC RDW Plt Count Lymph % (Auto) [place] % (Auto) Lymph # [place] # Baso # Seg Neutrophils % Seg Neuts % (Manual) Lymphocytes % (Manual) Monocytes % (Manual) Seg Neutrophils # Seg Neutrophils # Man Lymphocytes # (Manual) Monocytes # (Manual) Basophils # (Manual) Percent Retic PT INR APTT Heparin Anti-Xa Level POC ABG pH POC ABG pCO2 POC ABG pO2 Sodium Potassium Chloride Carbon Dioxide BUN Creatinine Glucose POC Glucose 162 H 148 H 178 H Calcium Phosphorus Iron TIBC Lactate Dehydrogenase Total Creatine Kinase NT-Pro-B Natriuret Pep Total Protein Albumin Ntjug-3-Puwfnxcee Bdjse-4-Srpqboxzk Beta Globulins PEP Interpretation Cholesterol LDL Cholesterol Direct Vitamin B12 Urine WBC (Auto) Urine Creatinine Crossmatch 04/26/16 04/26/16 04/26/16 12:17 16:16 18:14 WBC RBC Hgb Hct MCV MCH MCHC RDW Plt Count Lymph % (Auto) [place] % (Auto) Lymph # [place] # Baso # Seg Neutrophils % Seg Neuts % (Manual) Lymphocytes % (Manual) Monocytes % (Manual) Seg Neutrophils # Seg Neutrophils # Man Lymphocytes # (Manual) Monocytes # (Manual) Basophils # (Manual) Percent Retic PT INR APTT Heparin Anti-Xa Level POC ABG pH 7.513 H POC ABG pCO2 POC ABG pO2 76 L Sodium Potassium Chloride Carbon Dioxide BUN Creatinine Glucose POC Glucose 186 H 172 H Calcium Phosphorus Iron TIBC Lactate Dehydrogenase Total Creatine Kinase NT-Pro-B Natriuret Pep Total Protein Albumin Qfudn-8-Itfpwlnmq Fvouv-9-Bboyewqvi Beta Globulins PEP Interpretation Cholesterol LDL Cholesterol Direct Vitamin B12 Urine WBC (Auto) Urine Creatinine Crossmatch 04/26/16 04/26/16 04/27/16 19:27 23:28 04:21 WBC 13.1 H RBC 2.99 L Hgb 7.8 L Hct 24.0 L MCV 81 L MCH 26 L MCHC RDW 16.7 H Plt Count 486 H Lymph % (Auto) 12.5 L [place] % (Auto) 7.9 H Lymph # [place] # 1.0 H Baso # Seg Neutrophils % 77.5 H Seg Neuts % (Manual) Lymphocytes % (Manual) Monocytes % (Manual) Seg Neutrophils # 10.2 H Seg Neutrophils # Man Lymphocytes # (Manual) Monocytes # (Manual) Basophils # (Manual) Percent Retic PT INR APTT Heparin Anti-Xa Level 0.22 L POC ABG pH POC ABG pCO2 POC ABG pO2 Sodium Potassium Chloride Carbon Dioxide BUN Creatinine Glucose POC Glucose 141 H Calcium Phosphorus Iron TIBC Lactate Dehydrogenase Total Creatine Kinase NT-Pro-B Natriuret Pep Total Protein Albumin Bxrkz-8-Ixjuomjic Pzpta-6-Mvccoposz Beta Globulins PEP Interpretation Cholesterol LDL Cholesterol Direct Vitamin B12 Urine WBC (Auto) Urine Creatinine Crossmatch 04/27/16 04/27/16 04/27/16 04:21 05:46 11:04 WBC RBC Hgb Hct MCV MCH MCHC RDW Plt Count Lymph % (Auto) [place] % (Auto) Lymph # [place] # Baso # Seg Neutrophils % Seg Neuts % (Manual) Lymphocytes % (Manual) Monocytes % (Manual) Seg Neutrophils # Seg Neutrophils # Man Lymphocytes # (Manual) Monocytes # (Manual) Basophils # (Manual) Percent Retic PT INR APTT Heparin Anti-Xa Level POC ABG pH 7.489 H POC ABG pCO2 POC ABG pO2 71 L Sodium Potassium Chloride Carbon Dioxide BUN Creatinine 0.6 L Glucose 187 H POC Glucose 192 H Calcium 8.0 L Phosphorus Iron TIBC Lactate Dehydrogenase Total Creatine Kinase NT-Pro-B Natriuret Pep Total Protein 6.0 L Albumin 2.0 L Ylxqo-3-Syqpudryk Lilfj-9-Isxpzytfi Beta Globulins PEP Interpretation Cholesterol LDL Cholesterol Direct Vitamin B12 Urine WBC (Auto) Urine Creatinine Crossmatch 04/27/16 04/27/16 04/27/16 14:12 21:58 23:38 WBC RBC Hgb Hct MCV MCH MCHC RDW Plt Count Lymph % (Auto) [place] % (Auto) Lymph # [place] # Baso # Seg Neutrophils % Seg Neuts % (Manual) Lymphocytes % (Manual) Monocytes % (Manual) Seg Neutrophils # Seg Neutrophils # Man Lymphocytes # (Manual) Monocytes # (Manual) Basophils # (Manual) Percent Retic PT INR APTT Heparin Anti-Xa Level 0.24 L POC ABG pH POC ABG pCO2 POC ABG pO2 Sodium Potassium Chloride Carbon Dioxide BUN Creatinine Glucose POC Glucose 216 H 181 H Calcium Phosphorus Iron TIBC Lactate Dehydrogenase Total Creatine Kinase NT-Pro-B Natriuret Pep Total Protein Albumin Vytoh-5-Kjfziteal Hxirt-9-Babfisznt Beta Globulins PEP Interpretation Cholesterol LDL Cholesterol Direct Vitamin B12 Urine WBC (Auto) Urine Creatinine Crossmatch 04/28/16 04/28/16 04/28/16 04:28 05:52 11:31 WBC RBC Hgb Hct MCV MCH MCHC RDW Plt Count Lymph % (Auto) [place] % (Auto) Lymph # [place] # Baso # Seg Neutrophils % Seg Neuts % (Manual) Lymphocytes % (Manual) Monocytes % (Manual) Seg Neutrophils # Seg Neutrophils # Man Lymphocytes # (Manual) Monocytes # (Manual) Basophils # (Manual) Percent Retic PT INR APTT Heparin Anti-Xa Level POC ABG pH 7.524 H POC ABG pCO2 POC ABG pO2 Sodium Potassium Chloride Carbon Dioxide BUN Creatinine Glucose POC Glucose 254 H 280 H Calcium Phosphorus Iron TIBC Lactate Dehydrogenase Total Creatine Kinase NT-Pro-B Natriuret Pep Total Protein Albumin Walfy-1-Adrjzgqbs Axhvx-9-Aulonmhct Beta Globulins PEP Interpretation Cholesterol LDL Cholesterol Direct Vitamin B12 Urine WBC (Auto) Urine Creatinine Crossmatch 04/28/16 04/28/16 04/29/16 17:30 19:52 00:47 WBC RBC Hgb Hct MCV MCH MCHC RDW Plt Count Lymph % (Auto) [place] % (Auto) Lymph # [place] # Baso # Seg Neutrophils % Seg Neuts % (Manual) Lymphocytes % (Manual) Monocytes % (Manual) Seg Neutrophils # Seg Neutrophils # Man Lymphocytes # (Manual) Monocytes # (Manual) Basophils # (Manual) Percent Retic PT INR APTT Heparin Anti-Xa Level 0.15 L POC ABG pH POC ABG pCO2 POC ABG pO2 Sodium Potassium Chloride Carbon Dioxide BUN Creatinine Glucose POC Glucose 208 H 265 H Calcium Phosphorus Iron TIBC Lactate Dehydrogenase Total Creatine Kinase NT-Pro-B Natriuret Pep Total Protein Albumin Isccz-2-Dmvbrnfsr Tqxyn-0-Glfqrbdgr Beta Globulins PEP Interpretation Cholesterol LDL Cholesterol Direct Vitamin B12 Urine WBC (Auto) Urine Creatinine Crossmatch 04/29/16 04/29/16 04/29/16 04:00 04:00 04:29 WBC 13.4 H RBC 2.56 L Hgb 6.9 L Hct 20.6 L MCV 81 L MCH 27 L MCHC RDW 16.2 H Plt Count 513 H Lymph % (Auto) 10.0 L [place] % (Auto) 12.0 H Lymph # [place] # 1.6 H Baso # Seg Neutrophils % 77.1 H Seg Neuts % (Manual) Lymphocytes % (Manual) Monocytes % (Manual) Seg Neutrophils # 10.4 H Seg Neutrophils # Man Lymphocytes # (Manual) Monocytes # (Manual) Basophils # (Manual) Percent Retic PT INR APTT Heparin Anti-Xa Level POC ABG pH 7.501 H POC ABG pCO2 POC ABG pO2 76 L Sodium Potassium Chloride Carbon Dioxide BUN 27 H Creatinine Glucose 204 H POC Glucose Calcium 8.1 L Phosphorus Iron TIBC Lactate Dehydrogenase Total Creatine Kinase NT-Pro-B Natriuret Pep Total Protein Albumin Xasov-2-Wnpbqmsnl Qyjmx-2-Ivlnngtml Beta Globulins PEP Interpretation Cholesterol LDL Cholesterol Direct Vitamin B12 Urine WBC (Auto) Urine Creatinine Crossmatch 04/29/16 04/29/16 04/29/16 06:03 10:05 10:16 WBC RBC Hgb Hct MCV MCH MCHC RDW Plt Count Lymph % (Auto) [place] % (Auto) Lymph # [place] # Baso # Seg Neutrophils % Seg Neuts % (Manual) Lymphocytes % (Manual) Monocytes % (Manual) Seg Neutrophils # Seg Neutrophils # Man Lymphocytes # (Manual) Monocytes # (Manual) Basophils # (Manual) Percent Retic 3.68 H PT INR APTT Heparin Anti-Xa Level POC ABG pH POC ABG pCO2 POC ABG pO2 Sodium Potassium Chloride Carbon Dioxide BUN Creatinine Glucose POC Glucose 192 H Calcium Phosphorus Iron TIBC Lactate Dehydrogenase Total Creatine Kinase NT-Pro-B Natriuret Pep Total Protein Albumin Chucr-8-Cjtgftnsn Evjdv-0-Aribnlxzg Beta Globulins PEP Interpretation Cholesterol LDL Cholesterol Direct Vitamin B12 Urine WBC (Auto) Urine Creatinine Crossmatch See Detail 04/29/16 04/29/16 04/29/16 10:16 10:16 11:23 WBC RBC Hgb Hct MCV MCH MCHC RDW Plt Count Lymph % (Auto) [place] % (Auto) Lymph # [place] # Baso # Seg Neutrophils % Seg Neuts % (Manual) Lymphocytes % (Manual) Monocytes % (Manual) Seg Neutrophils # Seg Neutrophils # Man Lymphocytes # (Manual) Monocytes # (Manual) Basophils # (Manual) Percent Retic PT INR APTT Heparin Anti-Xa Level POC ABG pH POC ABG pCO2 POC ABG pO2 Sodium Potassium Chloride Carbon Dioxide BUN Creatinine Glucose POC Glucose 116 H Calcium Phosphorus Iron 10 L TIBC 138 L Lactate Dehydrogenase 204 H Total Creatine Kinase NT-Pro-B Natriuret Pep Total Protein Albumin Itbxn-5-Jwuzrgwlf Lpzfi-9-Fibuwjkci Beta Globulins PEP Interpretation Cholesterol LDL Cholesterol Direct Vitamin B12 1005 H Urine WBC (Auto) Urine Creatinine Crossmatch 04/29/16 04/29/16 04/30/16 17:34 23:19 03:19 WBC RBC Hgb 9.0 L Hct 26.7 L D MCV MCH MCHC RDW Plt Count Lymph % (Auto) [place] % (Auto) Lymph # [place] # Baso # Seg Neutrophils % Seg Neuts % (Manual) Lymphocytes % (Manual) Monocytes % (Manual) Seg Neutrophils # Seg Neutrophils # Man Lymphocytes # (Manual) Monocytes # (Manual) Basophils # (Manual) Percent Retic PT INR APTT Heparin Anti-Xa Level POC ABG pH POC ABG pCO2 POC ABG pO2 Sodium Potassium Chloride Carbon Dioxide BUN Creatinine Glucose POC Glucose 142 H 242 H Calcium Phosphorus Iron TIBC Lactate Dehydrogenase Total Creatine Kinase NT-Pro-B Natriuret Pep Total Protein Albumin Drmkp-3-Waeyjmypz Cnwuc-7-Ohljkimrm Beta Globulins PEP Interpretation Cholesterol LDL Cholesterol Direct Vitamin B12 Urine WBC (Auto) Urine Creatinine Crossmatch 04/30/16 04/30/16 04/30/16 04:10 04:10 04:32 WBC 13.8 H RBC 3.54 L Hgb 9.3 L Hct 29.1 L MCV 82 L MCH 26 L MCHC RDW 16.5 H Plt Count 535 H Lymph % (Auto) 7.5 L [place] % (Auto) 13.8 H Lymph # 1.0 L [place] # 1.9 H Baso # Seg Neutrophils % 78.0 H Seg Neuts % (Manual) Lymphocytes % (Manual) Monocytes % (Manual) Seg Neutrophils # 10.7 H Seg Neutrophils # Man Lymphocytes # (Manual) Monocytes # (Manual) Basophils # (Manual) Percent Retic PT INR APTT Heparin Anti-Xa Level POC ABG pH 7.519 H POC ABG pCO2 33.6 L POC ABG pO2 79 L Sodium 146 H Potassium Chloride Carbon Dioxide BUN Creatinine 0.7 L Glucose 242 H POC Glucose Calcium 8.3 L Phosphorus Iron TIBC Lactate Dehydrogenase Total Creatine Kinase NT-Pro-B Natriuret Pep Total Protein Albumin Alprz-6-Qgfcmxmwy Dvprb-2-Ozegbkpzq Beta Globulins PEP Interpretation Cholesterol LDL Cholesterol Direct Vitamin B12 Urine WBC (Auto) Urine Creatinine Crossmatch 04/30/16 04/30/16 04/30/16 05:33 11:23 17:26 WBC RBC Hgb Hct MCV MCH MCHC RDW Plt Count Lymph % (Auto) [place] % (Auto) Lymph # [place] # Baso # Seg Neutrophils % Seg Neuts % (Manual) Lymphocytes % (Manual) Monocytes % (Manual) Seg Neutrophils # Seg Neutrophils # Man Lymphocytes # (Manual) Monocytes # (Manual) Basophils # (Manual) Percent Retic PT INR APTT Heparin Anti-Xa Level POC ABG pH POC ABG pCO2 POC ABG pO2 Sodium Potassium Chloride Carbon Dioxide BUN Creatinine Glucose POC Glucose 242 H 305 H 281 H Calcium Phosphorus Iron TIBC Lactate Dehydrogenase Total Creatine Kinase NT-Pro-B Natriuret Pep Total Protein Albumin Ewrsn-1-Sfuvqjogm Lzjuv-3-Znznsofcp Beta Globulins PEP Interpretation Cholesterol LDL Cholesterol Direct Vitamin B12 Urine WBC (Auto) Urine Creatinine Crossmatch 04/30/16 05/01/16 05/01/16 23:53 04:00 04:00 WBC 15.9 H RBC 2.99 L Hgb 7.9 L Hct 24.4 L MCV 82 L MCH 26 L MCHC RDW 16.9 H Plt Count 481 H Lymph % (Auto) 9.3 L [place] % (Auto) 15.0 H Lymph # [place] # 2.4 H Baso # Seg Neutrophils % 74.9 H Seg Neuts % (Manual) Lymphocytes % (Manual) Monocytes % (Manual) Seg Neutrophils # 11.9 H Seg Neutrophils # Man Lymphocytes # (Manual) Monocytes # (Manual) Basophils # (Manual) Percent Retic PT INR APTT Heparin Anti-Xa Level POC ABG pH POC ABG pCO2 POC ABG pO2 Sodium 147 H Potassium Chloride 107.8 H Carbon Dioxide BUN 22 H Creatinine 0.7 L Glucose 229 H POC Glucose 207 H Calcium 8.2 L Phosphorus Iron TIBC Lactate Dehydrogenase Total Creatine Kinase NT-Pro-B Natriuret Pep Total Protein Albumin Xjsva-0-Eyjkfocln Frlnh-8-Qqvhqjafr Beta Globulins PEP Interpretation Cholesterol LDL Cholesterol Direct Vitamin B12 Urine WBC (Auto) Urine Creatinine Crossmatch 05/01/16 05/01/16 05/01/16 05:12 07:41 12:33 WBC RBC Hgb Hct MCV MCH MCHC RDW Plt Count Lymph % (Auto) [place] % (Auto) Lymph # [place] # Baso # Seg Neutrophils % Seg Neuts % (Manual) Lymphocytes % (Manual) Monocytes % (Manual) Seg Neutrophils # Seg Neutrophils # Man Lymphocytes # (Manual) Monocytes # (Manual) Basophils # (Manual) Percent Retic PT INR APTT Heparin Anti-Xa Level 0.16 L POC ABG pH POC ABG pCO2 POC ABG pO2 Sodium Potassium Chloride Carbon Dioxide BUN Creatinine Glucose POC Glucose 284 H 186 H Calcium Phosphorus Iron TIBC Lactate Dehydrogenase Total Creatine Kinase NT-Pro-B Natriuret Pep Total Protein Albumin Ubaxn-7-Bcpjzcyga Zckpc-5-Knhlwzott Beta Globulins PEP Interpretation Cholesterol LDL Cholesterol Direct Vitamin B12 Urine WBC (Auto) Urine Creatinine Crossmatch 05/01/16 05/01/16 05/02/16 17:24 23:19 04:48 WBC 17.2 H RBC 3.09 L Hgb 8.1 L Hct 25.5 L MCV 83 L MCH 26 L MCHC RDW 17.3 H Plt Count 507 H Lymph % (Auto) 8.0 L [place] % (Auto) 13.6 H Lymph # [place] # 2.3 H Baso # Seg Neutrophils % 77.5 H Seg Neuts % (Manual) Lymphocytes % (Manual) Monocytes % (Manual) Seg Neutrophils # 13.4 H Seg Neutrophils # Man Lymphocytes # (Manual) Monocytes # (Manual) Basophils # (Manual) Percent Retic PT INR APTT Heparin Anti-Xa Level POC ABG pH POC ABG pCO2 POC ABG pO2 Sodium Potassium Chloride Carbon Dioxide BUN Creatinine Glucose POC Glucose 171 H 132 H Calcium Phosphorus Iron TIBC Lactate Dehydrogenase Total Creatine Kinase NT-Pro-B Natriuret Pep Total Protein Albumin Hgvim-8-Fcpsfxdns Bxfee-9-Ocgbchhzi Beta Globulins PEP Interpretation Cholesterol LDL Cholesterol Direct Vitamin B12 Urine WBC (Auto) Urine Creatinine Crossmatch 05/02/16 05/02/16 05/02/16 04:48 04:48 05:42 WBC RBC Hgb Hct MCV MCH MCHC RDW Plt Count Lymph % (Auto) [place] % (Auto) Lymph # [place] # Baso # Seg Neutrophils % Seg Neuts % (Manual) Lymphocytes % (Manual) Monocytes % (Manual) Seg Neutrophils # Seg Neutrophils # Man Lymphocytes # (Manual) Monocytes # (Manual) Basophils # (Manual) Percent Retic PT INR APTT Heparin Anti-Xa Level 0.19 L POC ABG pH POC ABG pCO2 POC ABG pO2 Sodium 149 H Potassium Chloride 109.9 H Carbon Dioxide BUN 24 H Creatinine Glucose 224 H POC Glucose 253 H Calcium 8.2 L Phosphorus Iron TIBC Lactate Dehydrogenase Total Creatine Kinase NT-Pro-B Natriuret Pep Total Protein Albumin Zarne-1-Utkvscwwf Pgklw-7-Huhivnyea Beta Globulins PEP Interpretation Cholesterol LDL Cholesterol Direct Vitamin B12 Urine WBC (Auto) Urine Creatinine Crossmatch 05/02/16 05/02/16 05/02/16 12:01 16:40 23:35 WBC RBC Hgb Hct MCV MCH MCHC RDW Plt Count Lymph % (Auto) [place] % (Auto) Lymph # [place] # Baso # Seg Neutrophils % Seg Neuts % (Manual) Lymphocytes % (Manual) Monocytes % (Manual) Seg Neutrophils # Seg Neutrophils # Man Lymphocytes # (Manual) Monocytes # (Manual) Basophils # (Manual) Percent Retic PT INR APTT Heparin Anti-Xa Level POC ABG pH POC ABG pCO2 POC ABG pO2 Sodium Potassium Chloride Carbon Dioxide BUN Creatinine Glucose POC Glucose 197 H 126 H 303 H Calcium Phosphorus Iron TIBC Lactate Dehydrogenase Total Creatine Kinase NT-Pro-B Natriuret Pep Total Protein Albumin Dzgjh-9-Pqegbulqg Ebamg-3-Lusilhzqd Beta Globulins PEP Interpretation Cholesterol LDL Cholesterol Direct Vitamin B12 Urine WBC (Auto) Urine Creatinine Crossmatch 05/03/16 05/03/16 05/03/16 04:31 04:31 04:31 WBC 19.1 H RBC 3.15 L Hgb 8.6 L Hct 25.7 L MCV 82 L MCH MCHC RDW 17.4 H Plt Count 525 H Lymph % (Auto) [place] % (Auto) Lymph # [place] # Baso # Seg Neutrophils % Seg Neuts % (Manual) Lymphocytes % (Manual) 10.0 L Monocytes % (Manual) 13.0 H Seg Neutrophils # Seg Neutrophils # Man 13.2 H Lymphocytes # (Manual) Monocytes # (Manual) 2.5 H Basophils # (Manual) 0.2 H Percent Retic PT INR APTT Heparin Anti-Xa Level 0.16 L POC ABG pH POC ABG pCO2 POC ABG pO2 Sodium 151 H Potassium Chloride 112.9 H Carbon Dioxide BUN 24 H Creatinine 0.7 L Glucose 303 H POC Glucose Calcium Phosphorus Iron TIBC Lactate Dehydrogenase Total Creatine Kinase NT-Pro-B Natriuret Pep Total Protein Albumin Lbrcw-5-Vbscxirxq Haotq-8-Fwjkwdelj Beta Globulins PEP Interpretation Cholesterol LDL Cholesterol Direct Vitamin B12 Urine WBC (Auto) Urine Creatinine Crossmatch 05/03/16 05/03/16 05/04/16 12:08 18:05 00:11 WBC RBC Hgb Hct MCV MCH MCHC RDW Plt Count Lymph % (Auto) [place] % (Auto) Lymph # [place] # Baso # Seg Neutrophils % Seg Neuts % (Manual) Lymphocytes % (Manual) Monocytes % (Manual) Seg Neutrophils # Seg Neutrophils # Man Lymphocytes # (Manual) Monocytes # (Manual) Basophils # (Manual) Percent Retic PT INR APTT Heparin Anti-Xa Level POC ABG pH POC ABG pCO2 POC ABG pO2 Sodium Potassium Chloride Carbon Dioxide BUN Creatinine Glucose POC Glucose 452 H 370 H 374 H Calcium Phosphorus Iron TIBC Lactate Dehydrogenase Total Creatine Kinase NT-Pro-B Natriuret Pep Total Protein Albumin Kkynk-4-Vpnhgrgml Zrwcn-3-Vclhjclff Beta Globulins PEP Interpretation Cholesterol LDL Cholesterol Direct Vitamin B12 Urine WBC (Auto) Urine Creatinine Crossmatch 05/04/16 05/04/16 05/04/16 04:31 04:31 04:31 WBC 19.8 H RBC 2.90 L Hgb 7.8 L Hct 23.8 L MCV 82 L MCH 27 L MCHC RDW 17.9 H Plt Count 504 H Lymph % (Auto) [place] % (Auto) Lymph # [place] # Baso # Seg Neutrophils % Seg Neuts % (Manual) Lymphocytes % (Manual) 11.0 L Monocytes % (Manual) 8.0 H Seg Neutrophils # Seg Neutrophils # Man 13.3 H Lymphocytes # (Manual) Monocytes # (Manual) 1.6 H Basophils # (Manual) Percent Retic PT INR APTT Heparin Anti-Xa Level 0.15 L POC ABG pH POC ABG pCO2 POC ABG pO2 Sodium 146 H Potassium Chloride Carbon Dioxide BUN 30 H Creatinine 0.7 L Glucose 321 H POC Glucose Calcium 8.3 L Phosphorus Iron TIBC Lactate Dehydrogenase Total Creatine Kinase NT-Pro-B Natriuret Pep Total Protein Albumin Mjypv-2-Ofjqxeaar Rjgfh-4-Ptpljehoi Beta Globulins PEP Interpretation Cholesterol LDL Cholesterol Direct Vitamin B12 Urine WBC (Auto) Urine Creatinine Crossmatch 05/04/16 05/04/16 05/04/16 10:20 11:57 17:36 WBC RBC Hgb Hct MCV MCH MCHC RDW Plt Count Lymph % (Auto) [place] % (Auto) Lymph # [place] # Baso # Seg Neutrophils % Seg Neuts % (Manual) Lymphocytes % (Manual) Monocytes % (Manual) Seg Neutrophils # Seg Neutrophils # Man Lymphocytes # (Manual) Monocytes # (Manual) Basophils # (Manual) Percent Retic PT INR APTT Heparin Anti-Xa Level POC ABG pH POC ABG pCO2 POC ABG pO2 Sodium Potassium Chloride Carbon Dioxide BUN Creatinine Glucose POC Glucose 303 H 271 H Calcium Phosphorus Iron TIBC Lactate Dehydrogenase Total Creatine Kinase NT-Pro-B Natriuret Pep Total Protein Albumin Hlkog-4-Tdjxeapxw Cbjoh-7-Fquolvlxe Beta Globulins PEP Interpretation Cholesterol LDL Cholesterol Direct Vitamin B12 Urine WBC (Auto) > 182.0 H Urine Creatinine Crossmatch 05/04/16 05/05/16 05/05/16 23:53 04:13 04:13 WBC 20.9 H RBC 2.92 L Hgb 7.6 L Hct 23.9 L MCV 82 L MCH 26 L MCHC RDW 17.9 H Plt Count 526 H Lymph % (Auto) [place] % (Auto) Lymph # [place] # Baso # Seg Neutrophils % Seg Neuts % (Manual) 93.0 H Lymphocytes % (Manual) 2.0 L Monocytes % (Manual) Seg Neutrophils # Seg Neutrophils # Man 19.4 H Lymphocytes # (Manual) 0.4 L Monocytes # (Manual) Basophils # (Manual) Percent Retic PT INR APTT Heparin Anti-Xa Level POC ABG pH POC ABG pCO2 POC ABG pO2 Sodium 146 H Potassium Chloride Carbon Dioxide BUN 30 H Creatinine 0.7 L Glucose 250 H POC Glucose 235 H Calcium 8.1 L Phosphorus Iron TIBC Lactate Dehydrogenase Total Creatine Kinase NT-Pro-B Natriuret Pep Total Protein Albumin Zxzyr-0-Qgpihodqt Maara-3-Ametjmtlv Beta Globulins PEP Interpretation Cholesterol LDL Cholesterol Direct Vitamin B12 Urine WBC (Auto) Urine Creatinine Crossmatch 05/05/16 05/05/16 05/05/16 05:27 07:36 12:06 WBC RBC Hgb Hct MCV MCH MCHC RDW Plt Count Lymph % (Auto) [place] % (Auto) Lymph # [place] # Baso # Seg Neutrophils % Seg Neuts % (Manual) Lymphocytes % (Manual) Monocytes % (Manual) Seg Neutrophils # Seg Neutrophils # Man Lymphocytes # (Manual) Monocytes # (Manual) Basophils # (Manual) Percent Retic PT INR APTT Heparin Anti-Xa Level < 0.10 L POC ABG pH POC ABG pCO2 POC ABG pO2 Sodium Potassium Chloride Carbon Dioxide BUN Creatinine Glucose POC Glucose 287 H 301 H Calcium Phosphorus Iron TIBC Lactate Dehydrogenase Total Creatine Kinase NT-Pro-B Natriuret Pep Total Protein Albumin Lyuhp-5-Ehynohfvk Yxuui-1-Ulcmqmpdz Beta Globulins PEP Interpretation Cholesterol LDL Cholesterol Direct Vitamin B12 Urine WBC (Auto) Urine Creatinine Crossmatch 05/05/16 05/05/16 05/06/16 15:58 17:30 00:10 WBC RBC Hgb Hct MCV MCH MCHC RDW Plt Count Lymph % (Auto) [place] % (Auto) Lymph # [place] # Baso # Seg Neutrophils % Seg Neuts % (Manual) Lymphocytes % (Manual) Monocytes % (Manual) Seg Neutrophils # Seg Neutrophils # Man Lymphocytes # (Manual) Monocytes # (Manual) Basophils # (Manual) Percent Retic PT INR APTT Heparin Anti-Xa Level 0.17 L POC ABG pH POC ABG pCO2 POC ABG pO2 Sodium Potassium Chloride Carbon Dioxide BUN Creatinine Glucose POC Glucose 226 H 161 H Calcium Phosphorus Iron TIBC Lactate Dehydrogenase Total Creatine Kinase NT-Pro-B Natriuret Pep Total Protein Albumin Ifxkv-6-Gpalxvyyw Ntelm-3-Mtcnybhut Beta Globulins PEP Interpretation Cholesterol LDL Cholesterol Direct Vitamin B12 Urine WBC (Auto) Urine Creatinine Crossmatch 05/06/16 05/06/16 05/06/16 04:23 05:30 05:37 WBC RBC Hgb Hct MCV MCH MCHC RDW Plt Count Lymph % (Auto) [place] % (Auto) Lymph # [place] # Baso # Seg Neutrophils % Seg Neuts % (Manual) Lymphocytes % (Manual) Monocytes % (Manual) Seg Neutrophils # Seg Neutrophils # Man Lymphocytes # (Manual) Monocytes # (Manual) Basophils # (Manual) Percent Retic PT INR APTT Heparin Anti-Xa Level 0.15 L POC ABG pH 7.511 H POC ABG pCO2 POC ABG pO2 Sodium Potassium Chloride Carbon Dioxide BUN Creatinine Glucose POC Glucose 168 H Calcium Phosphorus Iron TIBC Lactate Dehydrogenase Total Creatine Kinase NT-Pro-B Natriuret Pep Total Protein Albumin Tscbs-2-Tfcithlol Aidcj-9-Cuktnaiqe Beta Globulins PEP Interpretation Cholesterol LDL Cholesterol Direct Vitamin B12 Urine WBC (Auto) Urine Creatinine Crossmatch 05/06/16 05/06/16 05/07/16 12:48 17:22 00:04 WBC RBC Hgb Hct MCV MCH MCHC RDW Plt Count Lymph % (Auto) [place] % (Auto) Lymph # [place] # Baso # Seg Neutrophils % Seg Neuts % (Manual) Lymphocytes % (Manual) Monocytes % (Manual) Seg Neutrophils # Seg Neutrophils # Man Lymphocytes # (Manual) Monocytes # (Manual) Basophils # (Manual) Percent Retic PT INR APTT Heparin Anti-Xa Level POC ABG pH POC ABG pCO2 POC ABG pO2 Sodium Potassium Chloride Carbon Dioxide BUN Creatinine Glucose POC Glucose 206 H 160 H 164 H Calcium Phosphorus Iron TIBC Lactate Dehydrogenase Total Creatine Kinase NT-Pro-B Natriuret Pep Total Protein Albumin Hdybv-6-Inxhahaye Brzuh-1-Qejsxjuhx Beta Globulins PEP Interpretation Cholesterol LDL Cholesterol Direct Vitamin B12 Urine WBC (Auto) Urine Creatinine Crossmatch 05/07/16 05/07/16 05/07/16 04:02 05:50 11:30 WBC RBC Hgb Hct MCV MCH MCHC RDW Plt Count Lymph % (Auto) [place] % (Auto) Lymph # [place] # Baso # Seg Neutrophils % Seg Neuts % (Manual) Lymphocytes % (Manual) Monocytes % (Manual) Seg Neutrophils # Seg Neutrophils # Man Lymphocytes # (Manual) Monocytes # (Manual) Basophils # (Manual) Percent Retic PT INR APTT Heparin Anti-Xa Level 0.15 L POC ABG pH POC ABG pCO2 POC ABG pO2 Sodium Potassium Chloride Carbon Dioxide BUN Creatinine Glucose POC Glucose 177 H 240 H Calcium Phosphorus Iron TIBC Lactate Dehydrogenase Total Creatine Kinase NT-Pro-B Natriuret Pep Total Protein Albumin Idgzu-4-Mtcefradf Xtgbd-3-Pmpvyvpte Beta Globulins PEP Interpretation Cholesterol LDL Cholesterol Direct Vitamin B12 Urine WBC (Auto) Urine Creatinine Crossmatch 05/07/16 05/07/16 05/07/16 12:46 17:57 23:54 WBC 20.8 H RBC 2.86 L Hgb 7.6 L Hct 23.3 L MCV 81 L MCH 26 L MCHC RDW 17.9 H Plt Count 559 H Lymph % (Auto) [place] % (Auto) Lymph # [place] # Baso # Seg Neutrophils % Seg Neuts % (Manual) Lymphocytes % (Manual) Monocytes % (Manual) Seg Neutrophils # Seg Neutrophils # Man Lymphocytes # (Manual) Monocytes # (Manual) Basophils # (Manual) Percent Retic PT INR APTT Heparin Anti-Xa Level POC ABG pH POC ABG pCO2 POC ABG pO2 Sodium Potassium Chloride Carbon Dioxide BUN Creatinine Glucose POC Glucose 279 H 201 H Calcium Phosphorus Iron TIBC Lactate Dehydrogenase Total Creatine Kinase NT-Pro-B Natriuret Pep Total Protein Albumin Yqody-5-Vtivpenlh Mgnrr-7-Lllxymolq Beta Globulins PEP Interpretation Cholesterol LDL Cholesterol Direct Vitamin B12 Urine WBC (Auto) Urine Creatinine Crossmatch 05/08/16 05/08/16 05/08/16 04:04 05:39 12:09 WBC RBC Hgb Hct MCV MCH MCHC RDW Plt Count Lymph % (Auto) [place] % (Auto) Lymph # [place] # Baso # Seg Neutrophils % Seg Neuts % (Manual) Lymphocytes % (Manual) Monocytes % (Manual) Seg Neutrophils # Seg Neutrophils # Man Lymphocytes # (Manual) Monocytes # (Manual) Basophils # (Manual) Percent Retic PT INR APTT Heparin Anti-Xa Level 0.20 L POC ABG pH POC ABG pCO2 POC ABG pO2 Sodium Potassium Chloride Carbon Dioxide BUN Creatinine Glucose POC Glucose 153 H 188 H Calcium Phosphorus Iron TIBC Lactate Dehydrogenase Total Creatine Kinase NT-Pro-B Natriuret Pep Total Protein Albumin Bjxzb-7-Pxohynlhe Dkyws-3-Nfdcvqayb Beta Globulins PEP Interpretation Cholesterol LDL Cholesterol Direct Vitamin B12 Urine WBC (Auto) Urine Creatinine Crossmatch 05/08/16 05/08/16 05/08/16 17:44 17:49 18:51 WBC RBC Hgb Hct MCV MCH MCHC RDW Plt Count Lymph % (Auto) [place] % (Auto) Lymph # [place] # Baso # Seg Neutrophils % Seg Neuts % (Manual) Lymphocytes % (Manual) Monocytes % (Manual) Seg Neutrophils # Seg Neutrophils # Man Lymphocytes # (Manual) Monocytes # (Manual) Basophils # (Manual) Percent Retic PT INR APTT Heparin Anti-Xa Level POC ABG pH POC ABG pCO2 POC ABG pO2 Sodium Potassium Chloride Carbon Dioxide BUN Creatinine Glucose POC Glucose 56 L 61 L 135 H Calcium Phosphorus Iron TIBC Lactate Dehydrogenase Total Creatine Kinase NT-Pro-B Natriuret Pep Total Protein Albumin Enbow-5-Otiprxekr Ntyiw-5-Wvrakblpu Beta Globulins PEP Interpretation Cholesterol LDL Cholesterol Direct Vitamin B12 Urine WBC (Auto) Urine Creatinine Crossmatch 05/09/16 05/09/16 05/09/16 00:14 04:07 05:18 WBC RBC Hgb Hct MCV MCH MCHC RDW Plt Count Lymph % (Auto) [place] % (Auto) Lymph # [place] # Baso # Seg Neutrophils % Seg Neuts % (Manual) Lymphocytes % (Manual) Monocytes % (Manual) Seg Neutrophils # Seg Neutrophils # Man Lymphocytes # (Manual) Monocytes # (Manual) Basophils # (Manual) Percent Retic PT INR APTT Heparin Anti-Xa Level 0.21 L POC ABG pH POC ABG pCO2 POC ABG pO2 Sodium Potassium Chloride Carbon Dioxide BUN Creatinine Glucose POC Glucose 151 H 215 H Calcium Phosphorus Iron TIBC Lactate Dehydrogenase Total Creatine Kinase NT-Pro-B Natriuret Pep Total Protein Albumin Eijnp-6-Bytlmeixm Obsyq-9-Pyspseflf Beta Globulins PEP Interpretation Cholesterol LDL Cholesterol Direct Vitamin B12 Urine WBC (Auto) Urine Creatinine Crossmatch 05/09/16 05/09/16 05/09/16 12:27 16:39 17:30 WBC RBC Hgb 6.4 L Hct 20.2 L MCV MCH MCHC RDW Plt Count Lymph % (Auto) [place] % (Auto) Lymph # [place] # Baso # Seg Neutrophils % Seg Neuts % (Manual) Lymphocytes % (Manual) Monocytes % (Manual) Seg Neutrophils # Seg Neutrophils # Man Lymphocytes # (Manual) Monocytes # (Manual) Basophils # (Manual) Percent Retic PT INR APTT Heparin Anti-Xa Level POC ABG pH POC ABG pCO2 POC ABG pO2 Sodium Potassium Chloride Carbon Dioxide BUN Creatinine Glucose POC Glucose 291 H 220 H Calcium Phosphorus Iron TIBC Lactate Dehydrogenase Total Creatine Kinase NT-Pro-B Natriuret Pep Total Protein Albumin Otksh-4-Bugqqvjbs Fyymw-8-Npczyttlj Beta Globulins PEP Interpretation Cholesterol LDL Cholesterol Direct Vitamin B12 Urine WBC (Auto) Urine Creatinine Crossmatch 05/09/16 05/09/16 05/10/16 19:47 23:57 03:55 WBC 16.9 H RBC 3.20 L Hgb 8.6 L Hct 26.7 L D MCV 83 L MCH 27 L MCHC RDW 17.5 H Plt Count 488 H Lymph % (Auto) [place] % (Auto) Lymph # [place] # Baso # Seg Neutrophils % Seg Neuts % (Manual) 76.0 H Lymphocytes % (Manual) 9.0 L Monocytes % (Manual) 10.0 H Seg Neutrophils # Seg Neutrophils # Man 12.8 H Lymphocytes # (Manual) Monocytes # (Manual) 1.7 H Basophils # (Manual) Percent Retic PT INR APTT Heparin Anti-Xa Level POC ABG pH POC ABG pCO2 POC ABG pO2 Sodium Potassium Chloride Carbon Dioxide BUN Creatinine Glucose POC Glucose 217 H Calcium Phosphorus Iron TIBC Lactate Dehydrogenase Total Creatine Kinase NT-Pro-B Natriuret Pep Total Protein Albumin Kxyww-0-Adbbiiavw Ropeq-8-Nkyjigxdb Beta Globulins PEP Interpretation Cholesterol LDL Cholesterol Direct Vitamin B12 Urine WBC (Auto) Urine Creatinine Crossmatch See Detail 05/10/16 05/10/16 05/10/16 05:05 11:49 12:54 WBC RBC Hgb 9.1 L Hct 28.2 L MCV MCH MCHC RDW Plt Count Lymph % (Auto) [place] % (Auto) Lymph # [place] # Baso # Seg Neutrophils % Seg Neuts % (Manual) Lymphocytes % (Manual) Monocytes % (Manual) Seg Neutrophils # Seg Neutrophils # Man Lymphocytes # (Manual) Monocytes # (Manual) Basophils # (Manual) Percent Retic PT INR APTT Heparin Anti-Xa Level POC ABG pH POC ABG pCO2 POC ABG pO2 Sodium Potassium Chloride Carbon Dioxide BUN Creatinine Glucose POC Glucose 182 H 237 H Calcium Phosphorus Iron TIBC Lactate Dehydrogenase Total Creatine Kinase NT-Pro-B Natriuret Pep Total Protein Albumin Bcyah-3-Cbnpmsgex Ccaeg-1-Ovhrmclwm Beta Globulins PEP Interpretation Cholesterol LDL Cholesterol Direct Vitamin B12 Urine WBC (Auto) Urine Creatinine Crossmatch 05/10/16 05/10/16 05/10/16 12:54 17:29 23:07 WBC RBC Hgb Hct MCV MCH MCHC RDW Plt Count Lymph % (Auto) [place] % (Auto) Lymph # [place] # Baso # Seg Neutrophils % Seg Neuts % (Manual) Lymphocytes % (Manual) Monocytes % (Manual) Seg Neutrophils # Seg Neutrophils # Man Lymphocytes # (Manual) Monocytes # (Manual) Basophils # (Manual) Percent Retic PT INR 1.14 H APTT Heparin Anti-Xa Level POC ABG pH POC ABG pCO2 POC ABG pO2 Sodium Potassium Chloride Carbon Dioxide BUN Creatinine Glucose POC Glucose 198 H 172 H Calcium Phosphorus Iron TIBC Lactate Dehydrogenase Total Creatine Kinase NT-Pro-B Natriuret Pep Total Protein Albumin Ncido-0-Mxotdhqxq Ygvcl-7-Lfieikjiy Beta Globulins PEP Interpretation Cholesterol LDL Cholesterol Direct Vitamin B12 Urine WBC (Auto) Urine Creatinine Crossmatch 05/11/16 05/11/16 05/11/16 04:16 04:16 05:13 WBC 16.1 H RBC 3.27 L Hgb 8.8 L Hct 27.7 L MCV MCH 27 L MCHC RDW 17.9 H Plt Count 475 H Lymph % (Auto) 8.9 L [place] % (Auto) 8.0 H Lymph # [place] # 1.3 H Baso # Seg Neutrophils % 81.6 H Seg Neuts % (Manual) Lymphocytes % (Manual) Monocytes % (Manual) Seg Neutrophils # 13.1 H Seg Neutrophils # Man Lymphocytes # (Manual) Monocytes # (Manual) Basophils # (Manual) Percent Retic PT INR APTT Heparin Anti-Xa Level POC ABG pH POC ABG pCO2 POC ABG pO2 Sodium 152 H Potassium Chloride 114.2 H Carbon Dioxide BUN 23 H Creatinine 0.6 L Glucose 166 H POC Glucose 173 H Calcium 8.0 L Phosphorus Iron TIBC Lactate Dehydrogenase Total Creatine Kinase NT-Pro-B Natriuret Pep Total Protein Albumin Uvohu-3-Rkbeknwat Scocz-6-Hrjcwbgdl Beta Globulins PEP Interpretation Cholesterol LDL Cholesterol Direct Vitamin B12 Urine WBC (Auto) Urine Creatinine Crossmatch 05/11/16 05/11/16 05/11/16 11:30 17:20 23:53 WBC RBC Hgb Hct MCV MCH MCHC RDW Plt Count Lymph % (Auto) [place] % (Auto) Lymph # [place] # Baso # Seg Neutrophils % Seg Neuts % (Manual) Lymphocytes % (Manual) Monocytes % (Manual) Seg Neutrophils # Seg Neutrophils # Man Lymphocytes # (Manual) Monocytes # (Manual) Basophils # (Manual) Percent Retic PT INR APTT Heparin Anti-Xa Level POC ABG pH POC ABG pCO2 POC ABG pO2 Sodium Potassium Chloride Carbon Dioxide BUN Creatinine Glucose POC Glucose 192 H 147 H 164 H Calcium Phosphorus Iron TIBC Lactate Dehydrogenase Total Creatine Kinase NT-Pro-B Natriuret Pep Total Protein Albumin Sgmik-7-Jwpweypjm Wiexq-5-Ztvefjfny Beta Globulins PEP Interpretation Cholesterol LDL Cholesterol Direct Vitamin B12 Urine WBC (Auto) Urine Creatinine Crossmatch 05/12/16 05/12/16 05/12/16 05:35 07:33 11:01 WBC RBC Hgb 9.2 L Hct 29.2 L MCV MCH MCHC RDW Plt Count 503 H Lymph % (Auto) [place] % (Auto) Lymph # [place] # Baso # Seg Neutrophils % Seg Neuts % (Manual) Lymphocytes % (Manual) Monocytes % (Manual) Seg Neutrophils # Seg Neutrophils # Man Lymphocytes # (Manual) Monocytes # (Manual) Basophils # (Manual) Percent Retic PT INR APTT Heparin Anti-Xa Level POC ABG pH POC ABG pCO2 POC ABG pO2 Sodium 148 H Potassium Chloride 108.5 H Carbon Dioxide BUN Creatinine 0.5 L Glucose 146 H POC Glucose 145 H Calcium 8.2 L Phosphorus Iron TIBC Lactate Dehydrogenase Total Creatine Kinase NT-Pro-B Natriuret Pep Total Protein Albumin Moweg-1-Qyshaiaur Ytlrg-3-Uvufzdlmm Beta Globulins PEP Interpretation Cholesterol LDL Cholesterol Direct Vitamin B12 Urine WBC (Auto) Urine Creatinine Crossmatch 05/12/16 05/12/16 05/12/16 11:44 18:15 19:33 WBC RBC Hgb Hct MCV MCH MCHC RDW Plt Count Lymph % (Auto) [place] % (Auto) Lymph # [place] # Baso # Seg Neutrophils % Seg Neuts % (Manual) Lymphocytes % (Manual) Monocytes % (Manual) Seg Neutrophils # Seg Neutrophils # Man Lymphocytes # (Manual) Monocytes # (Manual) Basophils # (Manual) Percent Retic PT INR APTT Heparin Anti-Xa Level 0.17 L POC ABG pH POC ABG pCO2 POC ABG pO2 Sodium Potassium Chloride Carbon Dioxide BUN Creatinine Glucose POC Glucose 223 H 137 H Calcium Phosphorus Iron TIBC Lactate Dehydrogenase Total Creatine Kinase NT-Pro-B Natriuret Pep Total Protein Albumin Rdmok-9-Dlnsivmry Wqjts-6-Ovxsuwtes Beta Globulins PEP Interpretation Cholesterol LDL Cholesterol Direct Vitamin B12 Urine WBC (Auto) Urine Creatinine Crossmatch 05/12/16 05/13/16 05/13/16 23:23 04:45 05:43 WBC 18.1 H RBC 3.26 L Hgb 9.0 L Hct 29.0 L MCV MCH MCHC 31 L RDW 18.3 H Plt Count 467 H Lymph % (Auto) [place] % (Auto) Lymph # [place] # Baso # Seg Neutrophils % Seg Neuts % (Manual) 76.0 H Lymphocytes % (Manual) 11.0 L Monocytes % (Manual) 8.0 H Seg Neutrophils # Seg Neutrophils # Man 13.8 H Lymphocytes # (Manual) Monocytes # (Manual) 1.4 H Basophils # (Manual) 0.2 H Percent Retic PT INR APTT Heparin Anti-Xa Level POC ABG pH POC ABG pCO2 POC ABG pO2 Sodium Potassium Chloride Carbon Dioxide BUN Creatinine Glucose POC Glucose 114 H 136 H Calcium Phosphorus Iron TIBC Lactate Dehydrogenase Total Creatine Kinase NT-Pro-B Natriuret Pep Total Protein Albumin Nwoio-7-Cupghyizb Tjkmw-8-Iziaviznk Beta Globulins PEP Interpretation Cholesterol LDL Cholesterol Direct Vitamin B12 Urine WBC (Auto) Urine Creatinine Crossmatch 05/13/16 05/13/16 05/13/16 07:04 08:13 11:22 WBC RBC Hgb Hct MCV MCH MCHC RDW Plt Count Lymph % (Auto) [place] % (Auto) Lymph # [place] # Baso # Seg Neutrophils % Seg Neuts % (Manual) Lymphocytes % (Manual) Monocytes % (Manual) Seg Neutrophils # Seg Neutrophils # Man Lymphocytes # (Manual) Monocytes # (Manual) Basophils # (Manual) Percent Retic PT INR APTT Heparin Anti-Xa Level 0.25 L POC ABG pH POC ABG pCO2 POC ABG pO2 Sodium Potassium Chloride 109.1 H Carbon Dioxide BUN Creatinine 0.5 L Glucose 131 H POC Glucose 155 H Calcium 8.1 L Phosphorus Iron TIBC Lactate Dehydrogenase Total Creatine Kinase NT-Pro-B Natriuret Pep Total Protein Albumin Amhvs-8-Kkdftodjc Tdleo-7-Wcymerpxl Beta Globulins PEP Interpretation Cholesterol LDL Cholesterol Direct Vitamin B12 Urine WBC (Auto) Urine Creatinine Crossmatch 05/13/16 05/13/16 05/13/16 17:29 17:33 17:59 WBC RBC Hgb Hct MCV MCH MCHC RDW Plt Count Lymph % (Auto) [place] % (Auto) Lymph # [place] # Baso # Seg Neutrophils % Seg Neuts % (Manual) Lymphocytes % (Manual) Monocytes % (Manual) Seg Neutrophils # Seg Neutrophils # Man Lymphocytes # (Manual) Monocytes # (Manual) Basophils # (Manual) Percent Retic PT INR APTT Heparin Anti-Xa Level POC ABG pH POC ABG pCO2 POC ABG pO2 Sodium Potassium Chloride Carbon Dioxide BUN Creatinine Glucose POC Glucose 46 L < 40 L 152 H Calcium Phosphorus Iron TIBC Lactate Dehydrogenase Total Creatine Kinase NT-Pro-B Natriuret Pep Total Protein Albumin Wlumm-0-Ywmaawxgn Swsco-0-Qmbjajbwi Beta Globulins PEP Interpretation Cholesterol LDL Cholesterol Direct Vitamin B12 Urine WBC (Auto) Urine Creatinine Crossmatch 05/13/16 05/14/16 05/14/16 18:06 04:31 04:31 WBC 18.0 H RBC Hgb 10.2 L Hct 32.6 L MCV MCH 27 L MCHC 31 L RDW 17.5 H Plt Count 576 H Lymph % (Auto) 8.9 L [place] % (Auto) 9.3 H Lymph # [place] # 1.7 H Baso # Seg Neutrophils % 80.5 H Seg Neuts % (Manual) Lymphocytes % (Manual) Monocytes % (Manual) Seg Neutrophils # 14.5 H Seg Neutrophils # Man Lymphocytes # (Manual) Monocytes # (Manual) Basophils # (Manual) Percent Retic PT INR APTT Heparin Anti-Xa Level < 0.10 L POC ABG pH POC ABG pCO2 POC ABG pO2 Sodium Potassium Chloride Carbon Dioxide BUN Creatinine 0.6 L Glucose POC Glucose Calcium Phosphorus Iron TIBC Lactate Dehydrogenase Total Creatine Kinase NT-Pro-B Natriuret Pep Total Protein Albumin Laril-7-Gvlzkynkd Ongov-1-Goslskwjz Beta Globulins PEP Interpretation Cholesterol LDL Cholesterol Direct Vitamin B12 Urine WBC (Auto) Urine Creatinine Crossmatch 05/14/16 05/14/16 05/14/16 05:50 11:47 17:45 WBC RBC Hgb Hct MCV MCH MCHC RDW Plt Count Lymph % (Auto) [place] % (Auto) Lymph # [place] # Baso # Seg Neutrophils % Seg Neuts % (Manual) Lymphocytes % (Manual) Monocytes % (Manual) Seg Neutrophils # Seg Neutrophils # Man Lymphocytes # (Manual) Monocytes # (Manual) Basophils # (Manual) Percent Retic PT INR APTT Heparin Anti-Xa Level POC ABG pH POC ABG pCO2 POC ABG pO2 Sodium Potassium Chloride Carbon Dioxide BUN Creatinine Glucose POC Glucose 136 H 232 H 220 H Calcium Phosphorus Iron TIBC Lactate Dehydrogenase Total Creatine Kinase NT-Pro-B Natriuret Pep Total Protein Albumin Ykhju-6-Vuxslapza Fqgor-4-Vgpymoesj Beta Globulins PEP Interpretation Cholesterol LDL Cholesterol Direct Vitamin B12 Urine WBC (Auto) Urine Creatinine Crossmatch 05/14/16 05/15/16 05/15/16 22:57 04:37 04:37 WBC 16.4 H RBC 3.54 L Hgb 9.3 L Hct 29.4 L MCV 83 L MCH 26 L MCHC RDW 17.7 H Plt Count 586 H Lymph % (Auto) 6.7 L [place] % (Auto) 8.3 H Lymph # 1.1 L [place] # 1.4 H Baso # Seg Neutrophils % 83.7 H Seg Neuts % (Manual) Lymphocytes % (Manual) Monocytes % (Manual) Seg Neutrophils # 13.7 H Seg Neutrophils # Man Lymphocytes # (Manual) Monocytes # (Manual) Basophils # (Manual) Percent Retic PT INR APTT Heparin Anti-Xa Level POC ABG pH POC ABG pCO2 POC ABG pO2 Sodium Potassium Chloride Carbon Dioxide BUN Creatinine 0.6 L Glucose 220 H POC Glucose 265 H Calcium Phosphorus Iron TIBC Lactate Dehydrogenase Total Creatine Kinase NT-Pro-B Natriuret Pep Total Protein Albumin Dkjfx-9-Lmpqmwtef Bcxlj-0-Brgdducak Beta Globulins PEP Interpretation Cholesterol LDL Cholesterol Direct Vitamin B12 Urine WBC (Auto) Urine Creatinine Crossmatch 01/14/17 01/14/17 01/14/17 11:43 17:08 23:47 WBC RBC Hgb Hct MCV MCH MCHC RDW Plt Count Lymph % (Auto) [place] % (Auto) Lymph # [place] # Baso # Seg Neutrophils % Seg Neuts % (Manual) Lymphocytes % (Manual) Monocytes % (Manual) Seg Neutrophils # Seg Neutrophils # Man Lymphocytes # (Manual) Monocytes # (Manual) Basophils # (Manual) Percent Retic PT INR APTT Heparin Anti-Xa Level POC ABG pH POC ABG pCO2 POC ABG pO2 Sodium Potassium Chloride Carbon Dioxide BUN Creatinine Glucose POC Glucose 290 H 180 H 130 H Calcium Phosphorus Iron TIBC Lactate Dehydrogenase Total Creatine Kinase NT-Pro-B Natriuret Pep Total Protein Albumin Bmokh-9-Ocendujax Bacgz-6-Acgwtnbrq Beta Globulins PEP Interpretation Cholesterol LDL Cholesterol Direct Vitamin B12 Urine WBC (Auto) Urine Creatinine Crossmatch 05/16/16 05/16/16 05/16/16 04:13 04:13 04:29 WBC 15.4 H RBC 3.61 L Hgb 9.4 L Hct 30.2 L MCV MCH 26 L MCHC 31 L RDW 18.0 H Plt Count 563 H Lymph % (Auto) 9.3 L [place] % (Auto) 10.1 H Lymph # [place] # 1.6 H Baso # Seg Neutrophils % 79.6 H Seg Neuts % (Manual) Lymphocytes % (Manual) Monocytes % (Manual) Seg Neutrophils # 12.3 H Seg Neutrophils # Man Lymphocytes # (Manual) Monocytes # (Manual) Basophils # (Manual) Percent Retic PT INR APTT Heparin Anti-Xa Level POC ABG pH 7.491 H POC ABG pCO2 33.9 L POC ABG pO2 Sodium 147 H Potassium Chloride 108.2 H Carbon Dioxide BUN 21 H Creatinine 0.6 L Glucose 162 H POC Glucose Calcium Phosphorus Iron TIBC Lactate Dehydrogenase Total Creatine Kinase NT-Pro-B Natriuret Pep Total Protein Albumin Ekmxo-8-Rfxktwygd Rginh-8-Wgrwkwvuf Beta Globulins PEP Interpretation Cholesterol LDL Cholesterol Direct Vitamin B12 Urine WBC (Auto) Urine Creatinine Crossmatch 05/16/16 11:40 WBC RBC Hgb Hct MCV MCH MCHC RDW Plt Count Lymph % (Auto) [place] % (Auto) Lymph # [place] # Baso # Seg Neutrophils % Seg Neuts % (Manual) Lymphocytes % (Manual) Monocytes % (Manual) Seg Neutrophils # Seg Neutrophils # Man Lymphocytes # (Manual) Monocytes # (Manual) Basophils # (Manual) Percent Retic PT INR APTT Heparin Anti-Xa Level POC ABG pH POC ABG pCO2 POC ABG pO2 Sodium Potassium Chloride Carbon Dioxide BUN Creatinine Glucose POC Glucose 197 H Calcium Phosphorus Iron TIBC Lactate Dehydrogenase Total Creatine Kinase NT-Pro-B Natriuret Pep Total Protein Albumin Nnbul-8-Ftfajgqeh Esugw-9-Owvcpadsk Beta Globulins PEP Interpretation Cholesterol LDL Cholesterol Direct Vitamin B12 Urine WBC (Auto) Urine Creatinine Crossmatch
[2016-05-17] MEDS: D50W (25GM) IV PRN ×2 (00:15→00:30)
[2016-05-17] MEDS: DUONEB 0.5 MG-3 MG/3 ML SOLN IH SCH ×4 (01:48→19:55)
[2016-05-17 05:09] LABS: Basophils % (Auto) 0.5 % (0.0-1.8); Eosinophils % (Auto) 0.6 % (0.0-4.3); Hematocrit 28.1 % (35.5-45.6); Hemoglobin 9.1 gm/dl (11.8-15.2); Mean Corpuscular HGB Conc 32 % (32-34); Mean Corpuscular Hemoglobin 27 pg (28-32); Mean Corpuscular Volume 82 fl (84-94); Platelet Count 500 K/mm3 (140-440); Red Blood Count 3.42 M/mm3 (3.65-5.03); Red Cell Distribution Width 18.1 % (13.2-15.2); White Blood Count 15.1 K/mm3 (4.5-11.0)
[2016-05-17 05:24] LABS: BUN/Creatinine Ratio 31.66; Blood Urea Nitrogen 19 mg/dL (9-20); Calcium 8.3 mg/dL (8.4-10.2); Carbon Dioxide 25 mmol/L (22-30); Chloride 107.7 mmol/L (98-107); Glucose 150 mg/dL (75-100); Potassium 4.3 mmol/L (3.6-5.0); Sodium 145 mmol/L (137-145)
[2016-05-17 05:25] LABS: Anion Gap 17 mmol/L
[2016-05-17] MEDS: ZOSYN/NS 4.5GM/100ML 100 ML IV SCH (05:52)
--- NOTE | 2016-05-17 08:36 | Progress Note ---
Assessment and Plan 61 y/o male with acute encephalopathy, secondary to embolic strokes, now with acute respiratory failure requiring re-intubation. 1. Fever: Enteroccocus Faecalis in the Urine, shabazz sensitive. Given persistent fevers, will have nurses change mcmahan and will start levaquin vs penicillin after discussing with pharmacy. Will treat for 7 days being that this is a male and considered to be a complicated/complex UTI. 2. Patient had bleeding last week around trach site. Now recommended that anticoagulation be held indefinitely. Currently heparin is off. No further bleeding and tolerating T-piece 3. Continue T-piece as tolerated. Will attempt to go a full 24 hours 4. Follow up with CM in regards to funding. CCT 31 minutes. Subjective Date of service: 05/17/16 Principal diagnosis: CVA, acute respiratory failure Interval history: No acute events. Remains on IV abx therapy. Fever is gone. On T-piece and tolerating. Objective Vital Signs - 12hr 05/16/16 05/16/16 05/16/16 21:00 22:00 23:00 Temperature Pulse Rate 78 75 72 Pulse Rate [ Bilateral] Respiratory 18 24 20 Rate Respiratory Rate [Bilateral ] Blood Pressure 126/77 109/67 94/60 O2 Sat by Pulse 100 100 100 Oximetry 05/16/16 05/16/16 05/17/16 23:23 23:26 00:00 Temperature 99.6 F Pulse Rate 92 H 93 H 74 Pulse Rate [ Bilateral] Respiratory 18 Rate Respiratory Rate [Bilateral ] Blood Pressure 120/77 120/77 137/80 O2 Sat by Pulse 100 Oximetry 05/17/16 05/17/16 05/17/16 00:05 01:00 01:50 Temperature Pulse Rate 74 79 Pulse Rate [ 84 Bilateral] Respiratory 18 Rate Respiratory 14 Rate [Bilateral ] Blood Pressure 137/80 143/76 O2 Sat by Pulse 100 Oximetry 05/17/16 05/17/16 05/17/16 02:00 03:00 03:58 Temperature Pulse Rate 82 73 70 Pulse Rate [ 82 Bilateral] Respiratory 20 18 Rate Respiratory 23 Rate [Bilateral ] Blood Pressure 135/82 135/76 135/76 O2 Sat by Pulse 100 100 99 Oximetry 05/17/16 05/17/16 05/17/16 04:00 05:00 06:00 Temperature 98.9 F Pulse Rate 71 75 75 Pulse Rate [ Bilateral] Respiratory 18 20 18 Rate Respiratory Rate [Bilateral ] Blood Pressure 114/64 111/67 113/67 O2 Sat by Pulse 99 100 Oximetry 05/17/16 05/17/16 05/17/16 07:17 07:23 07:32 Temperature Pulse Rate Pulse Rate [ 92 H 98 H Bilateral] Respiratory Rate Respiratory 22 26 H Rate [Bilateral ] Blood Pressure O2 Sat by Pulse 100 Oximetry Constitutional: no acute distress, other (opens eyes, not following commands for me) Eyes: non-icteric ENT: other (tracheotomy) Neck: supple, other (no bleeding at trach site) Effort: normal Ascultation: Bilateral: clear, rhonchi (occasional), other (coarse BS bilaterally) Percussion: Bilateral: not dull Cardiovascular: regular rate and rhythm, murmur noted Gastrointestinal: normoactive bowel sounds, soft, non-tender Extremities: no cyanosis, no edema Neurologic: other (eyes open, not following commands or moving extremities for me) Psychiatric: other (unable to assess) CBC and BMP: 05/17/16 04:42 05/17/16 04:42 ABG, PT/INR, D-dimer: ABG POC ABG pH 7.491 (7.35-7.45) H 05/16/16 04:29 POC ABG pCO2 33.9 (35-45) L 05/16/16 04:29 POC ABG pO2 88 (80-105) 05/16/16 04:29 POC ABG HCO3 25.9 05/16/16 04:29 POC ABG Total CO2 27 05/16/16 04:29 POC ABG O2 Sat 98 05/16/16 04:29 PT/INR, D-dimer PT 13.8 Sec. (12.2-14.9) 05/12/16 11:01 INR 1.07 (0.87-1.13) 05/12/16 11:01 Abnormal lab findings: Abnormal Labs 03/24/16 03/24/16 03/24/16 17:58 20:25 23:23 WBC RBC Hgb Hct MCV MCH MCHC RDW Plt Count Lymph % (Auto) [place] % (Auto) Lymph # [place] # Baso # Seg Neutrophils % Seg Neuts % (Manual) Lymphocytes % (Manual) Monocytes % (Manual) Seg Neutrophils # Seg Neutrophils # Man Lymphocytes # (Manual) Monocytes # (Manual) Basophils # (Manual) Percent Retic PT INR APTT Heparin Anti-Xa Level POC ABG pH POC ABG pCO2 POC ABG pO2 Sodium 169 H* Potassium 3.5 L Chloride 130.3 H Carbon Dioxide BUN 28 H Creatinine 1.8 H Glucose POC Glucose 112 H Calcium Phosphorus Iron TIBC Lactate Dehydrogenase Total Creatine Kinase NT-Pro-B Natriuret Pep Total Protein Albumin Xtpmh-7-Ksowtsgxs Lvprw-0-Lhgtzrxdr Beta Globulins PEP Interpretation Cholesterol 221 H LDL Cholesterol Direct 146 H Vitamin B12 Urine WBC (Auto) Urine Creatinine Crossmatch 03/25/16 03/25/16 03/25/16 05:56 05:56 05:56 WBC 21.3 H RBC 6.32 H Hgb 16.7 H Hct 52.7 H MCV 83 L MCH 27 L MCHC RDW Plt Count Lymph % (Auto) [place] % (Auto) Lymph # [place] # Baso # Seg Neutrophils % Seg Neuts % (Manual) 91.0 H Lymphocytes % (Manual) 4.0 L Monocytes % (Manual) Seg Neutrophils # Seg Neutrophils # Man 19.4 H Lymphocytes # (Manual) 0.9 L Monocytes # (Manual) 0.9 H Basophils # (Manual) Percent Retic PT INR APTT Heparin Anti-Xa Level POC ABG pH POC ABG pCO2 POC ABG pO2 Sodium 172 H* Potassium 3.5 L Chloride 130.4 H Carbon Dioxide BUN 29 H Creatinine 1.8 H Glucose 187 H POC Glucose Calcium Phosphorus Iron TIBC Lactate Dehydrogenase 460 H Total Creatine Kinase NT-Pro-B Natriuret Pep Total Protein Albumin Isetd-1-Ghvjchjmh Qqqqe-3-Hygvjnicp Beta Globulins PEP Interpretation Cholesterol LDL Cholesterol Direct Vitamin B12 Urine WBC (Auto) Urine Creatinine Crossmatch 03/25/16 03/25/16 03/25/16 07:55 12:19 13:00 WBC RBC Hgb Hct MCV MCH MCHC RDW Plt Count Lymph % (Auto) [place] % (Auto) Lymph # [place] # Baso # Seg Neutrophils % Seg Neuts % (Manual) Lymphocytes % (Manual) Monocytes % (Manual) Seg Neutrophils # Seg Neutrophils # Man Lymphocytes # (Manual) Monocytes # (Manual) Basophils # (Manual) Percent Retic PT INR APTT Heparin Anti-Xa Level POC ABG pH POC ABG pCO2 POC ABG pO2 Sodium Potassium Chloride Carbon Dioxide BUN Creatinine Glucose POC Glucose 231 H 314 H Calcium Phosphorus Iron TIBC Lactate Dehydrogenase Total Creatine Kinase NT-Pro-B Natriuret Pep Total Protein Albumin 3.4 L Vdesn-6-Otyyetihx 0.4 H Spqza-6-Dbvgpmixs 1.1 H Beta Globulins 0.6 H PEP Interpretation see below H Cholesterol LDL Cholesterol Direct Vitamin B12 Urine WBC (Auto) Urine Creatinine Crossmatch 03/25/16 03/25/16 03/26/16 16:41 22:45 08:32 WBC RBC Hgb Hct MCV MCH MCHC RDW Plt Count Lymph % (Auto) [place] % (Auto) Lymph # [place] # Baso # Seg Neutrophils % Seg Neuts % (Manual) Lymphocytes % (Manual) Monocytes % (Manual) Seg Neutrophils # Seg Neutrophils # Man Lymphocytes # (Manual) Monocytes # (Manual) Basophils # (Manual) Percent Retic PT INR APTT Heparin Anti-Xa Level POC ABG pH POC ABG pCO2 POC ABG pO2 Sodium Potassium Chloride Carbon Dioxide BUN Creatinine Glucose POC Glucose 444 H 326 H 360 H Calcium Phosphorus Iron TIBC Lactate Dehydrogenase Total Creatine Kinase NT-Pro-B Natriuret Pep Total Protein Albumin Zvsqa-6-Wblavwdir Fepcj-6-Belepdxbe Beta Globulins PEP Interpretation Cholesterol LDL Cholesterol Direct Vitamin B12 Urine WBC (Auto) Urine Creatinine Crossmatch 03/26/16 03/26/16 03/26/16 12:38 15:33 15:47 WBC RBC Hgb Hct MCV MCH MCHC RDW Plt Count Lymph % (Auto) [place] % (Auto) Lymph # [place] # Baso # Seg Neutrophils % Seg Neuts % (Manual) Lymphocytes % (Manual) Monocytes % (Manual) Seg Neutrophils # Seg Neutrophils # Man Lymphocytes # (Manual) Monocytes # (Manual) Basophils # (Manual) Percent Retic PT INR APTT Heparin Anti-Xa Level POC ABG pH 7.511 H POC ABG pCO2 26.5 L POC ABG pO2 70 L Sodium Potassium Chloride Carbon Dioxide BUN Creatinine Glucose POC Glucose 280 H 174 H Calcium Phosphorus Iron TIBC Lactate Dehydrogenase Total Creatine Kinase NT-Pro-B Natriuret Pep Total Protein Albumin Vwvwy-9-Gzlelomlo Uxbzg-8-Mcvwtyybk Beta Globulins PEP Interpretation Cholesterol LDL Cholesterol Direct Vitamin B12 Urine WBC (Auto) Urine Creatinine Crossmatch 03/26/16 03/26/16 03/26/16 16:47 16:47 18:51 WBC 14.0 H RBC 5.17 H Hgb Hct MCV MCH 26 L MCHC 31 L RDW Plt Count 139 L Lymph % (Auto) [place] % (Auto) Lymph # [place] # Baso # Seg Neutrophils % Seg Neuts % (Manual) Lymphocytes % (Manual) Monocytes % (Manual) Seg Neutrophils # Seg Neutrophils # Man Lymphocytes # (Manual) Monocytes # (Manual) Basophils # (Manual) Percent Retic PT INR APTT Heparin Anti-Xa Level POC ABG pH POC ABG pCO2 33.9 L POC ABG pO2 150 H Sodium 164 H* Potassium 3.4 L Chloride 128.5 H Carbon Dioxide BUN 30 H Creatinine 2.2 H Glucose 121 H POC Glucose Calcium 8.1 L Phosphorus Iron TIBC Lactate Dehydrogenase Total Creatine Kinase NT-Pro-B Natriuret Pep Total Protein Albumin Atsep-6-Ecwgbbgeh Njntx-7-Jkyjeuzqw Beta Globulins PEP Interpretation Cholesterol LDL Cholesterol Direct Vitamin B12 Urine WBC (Auto) Urine Creatinine Crossmatch 03/27/16 03/27/16 03/27/16 02:19 05:47 06:02 WBC RBC Hgb Hct MCV MCH MCHC RDW Plt Count Lymph % (Auto) [place] % (Auto) Lymph # [place] # Baso # Seg Neutrophils % Seg Neuts % (Manual) Lymphocytes % (Manual) Monocytes % (Manual) Seg Neutrophils # Seg Neutrophils # Man Lymphocytes # (Manual) Monocytes # (Manual) Basophils # (Manual) Percent Retic PT INR APTT Heparin Anti-Xa Level POC ABG pH POC ABG pCO2 27.3 L 30.3 L POC ABG pO2 50 L 112 H Sodium 158 H Potassium Chloride 126.7 H Carbon Dioxide 20 L BUN 25 H Creatinine 1.7 H Glucose POC Glucose Calcium 7.0 L Phosphorus Iron TIBC Lactate Dehydrogenase Total Creatine Kinase NT-Pro-B Natriuret Pep Total Protein Albumin Bmcqa-3-Prroqlzbv Pamoh-2-Ykpknravp Beta Globulins PEP Interpretation Cholesterol LDL Cholesterol Direct Vitamin B12 Urine WBC (Auto) Urine Creatinine Crossmatch 03/27/16 03/27/16 03/27/16 07:51 09:20 11:45 WBC 14.2 H RBC Hgb Hct MCV 83 L MCH 27 L MCHC RDW Plt Count 113 L Lymph % (Auto) [place] % (Auto) Lymph # [place] # Baso # Seg Neutrophils % Seg Neuts % (Manual) Lymphocytes % (Manual) Monocytes % (Manual) Seg Neutrophils # Seg Neutrophils # Man Lymphocytes # (Manual) Monocytes # (Manual) Basophils # (Manual) Percent Retic PT INR APTT Heparin Anti-Xa Level POC ABG pH POC ABG pCO2 POC ABG pO2 Sodium Potassium Chloride Carbon Dioxide BUN Creatinine Glucose POC Glucose 124 H 241 H Calcium Phosphorus Iron TIBC Lactate Dehydrogenase Total Creatine Kinase NT-Pro-B Natriuret Pep Total Protein Albumin Biqvm-2-Gkthutzmv Fieqs-3-Kmawtllpn Beta Globulins PEP Interpretation Cholesterol LDL Cholesterol Direct Vitamin B12 Urine WBC (Auto) Urine Creatinine Crossmatch 03/27/16 03/27/16 03/28/16 16:39 22:03 03:29 WBC RBC Hgb Hct MCV MCH MCHC RDW Plt Count Lymph % (Auto) [place] % (Auto) Lymph # [place] # Baso # Seg Neutrophils % Seg Neuts % (Manual) Lymphocytes % (Manual) Monocytes % (Manual) Seg Neutrophils # Seg Neutrophils # Man Lymphocytes # (Manual) Monocytes # (Manual) Basophils # (Manual) Percent Retic PT INR APTT Heparin Anti-Xa Level POC ABG pH POC ABG pCO2 POC ABG pO2 Sodium Potassium Chloride Carbon Dioxide BUN Creatinine Glucose POC Glucose 266 H 167 H 241 H Calcium Phosphorus Iron TIBC Lactate Dehydrogenase Total Creatine Kinase NT-Pro-B Natriuret Pep Total Protein Albumin Majqf-7-Quohcbvqk Uxvgt-3-Socyocyhc Beta Globulins PEP Interpretation Cholesterol LDL Cholesterol Direct Vitamin B12 Urine WBC (Auto) Urine Creatinine Crossmatch 03/28/16 03/28/16 03/28/16 05:00 05:00 05:00 WBC RBC Hgb Hct MCV 83 L MCH 27 L MCHC RDW Plt Count 106 L Lymph % (Auto) [place] % (Auto) 10.1 H Lymph # [place] # 1.0 H Baso # Seg Neutrophils % 75.1 H Seg Neuts % (Manual) Lymphocytes % (Manual) Monocytes % (Manual) Seg Neutrophils # Seg Neutrophils # Man Lymphocytes # (Manual) Monocytes # (Manual) Basophils # (Manual) Percent Retic PT INR APTT Heparin Anti-Xa Level POC ABG pH POC ABG pCO2 POC ABG pO2 Sodium 147 H D Potassium 3.1 L D Chloride 112.3 H Carbon Dioxide 21 L BUN Creatinine Glucose 208 H POC Glucose Calcium 7.0 L Phosphorus 2.2 L Iron TIBC Lactate Dehydrogenase Total Creatine Kinase NT-Pro-B Natriuret Pep Total Protein Albumin Gqovr-6-Oetpdmwim Tqfoo-6-Cohzwgztr Beta Globulins PEP Interpretation Cholesterol LDL Cholesterol Direct Vitamin B12 Urine WBC (Auto) Urine Creatinine Crossmatch 03/28/16 03/28/16 03/28/16 05:14 08:41 10:56 WBC RBC Hgb Hct MCV MCH MCHC RDW Plt Count Lymph % (Auto) [place] % (Auto) Lymph # [place] # Baso # Seg Neutrophils % Seg Neuts % (Manual) Lymphocytes % (Manual) Monocytes % (Manual) Seg Neutrophils # Seg Neutrophils # Man Lymphocytes # (Manual) Monocytes # (Manual) Basophils # (Manual) Percent Retic PT INR APTT Heparin Anti-Xa Level POC ABG pH 7.457 H POC ABG pCO2 29.7 L 27.7 L POC ABG pO2 Sodium Potassium Chloride Carbon Dioxide BUN Creatinine Glucose POC Glucose 228 H Calcium Phosphorus Iron TIBC Lactate Dehydrogenase Total Creatine Kinase NT-Pro-B Natriuret Pep Total Protein Albumin Kpckd-6-Aoyaijvoi Nfwdb-6-Dgnedlmbh Beta Globulins PEP Interpretation Cholesterol LDL Cholesterol Direct Vitamin B12 Urine WBC (Auto) Urine Creatinine Crossmatch 03/28/16 03/28/16 03/28/16 11:37 13:29 16:22 WBC RBC Hgb Hct MCV MCH MCHC RDW Plt Count Lymph % (Auto) [place] % (Auto) Lymph # [place] # Baso # Seg Neutrophils % Seg Neuts % (Manual) Lymphocytes % (Manual) Monocytes % (Manual) Seg Neutrophils # Seg Neutrophils # Man Lymphocytes # (Manual) Monocytes # (Manual) Basophils # (Manual) Percent Retic PT INR APTT Heparin Anti-Xa Level POC ABG pH POC ABG pCO2 POC ABG pO2 Sodium Potassium Chloride Carbon Dioxide BUN Creatinine Glucose POC Glucose 226 H 200 H Calcium Phosphorus Iron TIBC Lactate Dehydrogenase Total Creatine Kinase 356 H NT-Pro-B Natriuret Pep Total Protein Albumin Fhkpl-3-Xfxuatekh Dgkym-8-Gjxatnwmz Beta Globulins PEP Interpretation Cholesterol LDL Cholesterol Direct Vitamin B12 Urine WBC (Auto) Urine Creatinine Crossmatch 03/28/16 03/29/16 03/29/16 21:48 04:50 04:50 WBC RBC Hgb 11.5 L Hct 35.3 L MCV 81 L MCH 26 L MCHC RDW Plt Count 97 L Lymph % (Auto) [place] % (Auto) 11.7 H Lymph # [place] # 1.1 H Baso # Seg Neutrophils % Seg Neuts % (Manual) Lymphocytes % (Manual) Monocytes % (Manual) Seg Neutrophils # Seg Neutrophils # Man Lymphocytes # (Manual) Monocytes # (Manual) Basophils # (Manual) Percent Retic PT INR APTT Heparin Anti-Xa Level POC ABG pH POC ABG pCO2 POC ABG pO2 Sodium 136 L D Potassium 3.3 L Chloride Carbon Dioxide 20 L BUN Creatinine Glucose 386 H POC Glucose 188 H Calcium 6.8 L Phosphorus 1.6 L D Iron TIBC Lactate Dehydrogenase Total Creatine Kinase NT-Pro-B Natriuret Pep Total Protein Albumin Dwyoi-7-Ewxmhjiou Yjdzw-8-Uwldvflse Beta Globulins PEP Interpretation Cholesterol LDL Cholesterol Direct Vitamin B12 Urine WBC (Auto) Urine Creatinine Crossmatch 03/29/16 03/29/16 03/29/16 08:10 11:12 16:09 WBC RBC Hgb Hct MCV MCH MCHC RDW Plt Count Lymph % (Auto) [place] % (Auto) Lymph # [place] # Baso # Seg Neutrophils % Seg Neuts % (Manual) Lymphocytes % (Manual) Monocytes % (Manual) Seg Neutrophils # Seg Neutrophils # Man Lymphocytes # (Manual) Monocytes # (Manual) Basophils # (Manual) Percent Retic PT INR APTT Heparin Anti-Xa Level POC ABG pH POC ABG pCO2 POC ABG pO2 Sodium Potassium Chloride Carbon Dioxide BUN Creatinine Glucose POC Glucose 230 H 180 H 46 L Calcium Phosphorus Iron TIBC Lactate Dehydrogenase Total Creatine Kinase NT-Pro-B Natriuret Pep Total Protein Albumin Ftnmo-9-Hucboeicd Ukkdy-8-Uegodxkig Beta Globulins PEP Interpretation Cholesterol LDL Cholesterol Direct Vitamin B12 Urine WBC (Auto) Urine Creatinine Crossmatch 03/29/16 03/29/16 03/30/16 16:12 18:15 02:53 WBC RBC Hgb Hct MCV MCH MCHC RDW Plt Count Lymph % (Auto) [place] % (Auto) Lymph # [place] # Baso # Seg Neutrophils % Seg Neuts % (Manual) Lymphocytes % (Manual) Monocytes % (Manual) Seg Neutrophils # Seg Neutrophils # Man Lymphocytes # (Manual) Monocytes # (Manual) Basophils # (Manual) Percent Retic PT INR APTT Heparin Anti-Xa Level POC ABG pH POC ABG pCO2 POC ABG pO2 Sodium Potassium Chloride Carbon Dioxide BUN Creatinine Glucose POC Glucose 52 L 118 H 130 H Calcium Phosphorus Iron TIBC Lactate Dehydrogenase Total Creatine Kinase NT-Pro-B Natriuret Pep Total Protein Albumin Jbqix-8-Djohftqye Shvgj-1-Lreoswofk Beta Globulins PEP Interpretation Cholesterol LDL Cholesterol Direct Vitamin B12 Urine WBC (Auto) Urine Creatinine Crossmatch 03/30/16 03/30/16 03/30/16 04:00 04:00 05:29 WBC RBC Hgb Hct MCV 81 L MCH 26 L MCHC RDW Plt Count 116 L Lymph % (Auto) 10.8 L [place] % (Auto) 13.1 H Lymph # 1.0 L [place] # 1.3 H Baso # Seg Neutrophils % 74.2 H Seg Neuts % (Manual) Lymphocytes % (Manual) Monocytes % (Manual) Seg Neutrophils # Seg Neutrophils # Man Lymphocytes # (Manual) Monocytes # (Manual) Basophils # (Manual) Percent Retic PT INR APTT Heparin Anti-Xa Level POC ABG pH 7.522 H POC ABG pCO2 22.7 L POC ABG pO2 137 H Sodium 147 H D Potassium Chloride 115.5 H Carbon Dioxide 20 L BUN Creatinine Glucose 116 H POC Glucose Calcium 7.6 L Phosphorus 2.3 L D Iron TIBC Lactate Dehydrogenase Total Creatine Kinase NT-Pro-B Natriuret Pep Total Protein Albumin Vdqpb-9-Enuhwjlsc Nvyhg-4-Vfwbmmaez Beta Globulins PEP Interpretation Cholesterol LDL Cholesterol Direct Vitamin B12 Urine WBC (Auto) Urine Creatinine Crossmatch 03/30/16 03/30/16 03/30/16 05:47 08:05 08:59 WBC RBC Hgb Hct MCV MCH MCHC RDW Plt Count Lymph % (Auto) [place] % (Auto) Lymph # [place] # Baso # Seg Neutrophils % Seg Neuts % (Manual) Lymphocytes % (Manual) Monocytes % (Manual) Seg Neutrophils # Seg Neutrophils # Man Lymphocytes # (Manual) Monocytes # (Manual) Basophils # (Manual) Percent Retic PT INR APTT Heparin Anti-Xa Level POC ABG pH POC ABG pCO2 26.2 L POC ABG pO2 115 H Sodium Potassium Chloride Carbon Dioxide BUN Creatinine Glucose POC Glucose 138 H 171 H Calcium Phosphorus Iron TIBC Lactate Dehydrogenase Total Creatine Kinase NT-Pro-B Natriuret Pep Total Protein Albumin Ekxtt-9-Jmsgiihlf Meepm-3-Xnppmflqi Beta Globulins PEP Interpretation Cholesterol LDL Cholesterol Direct Vitamin B12 Urine WBC (Auto) Urine Creatinine Crossmatch 03/30/16 03/30/16 03/30/16 12:11 12:11 16:39 WBC RBC Hgb Hct MCV MCH MCHC RDW Plt Count Lymph % (Auto) [place] % (Auto) Lymph # [place] # Baso # Seg Neutrophils % Seg Neuts % (Manual) Lymphocytes % (Manual) Monocytes % (Manual) Seg Neutrophils # Seg Neutrophils # Man Lymphocytes # (Manual) Monocytes # (Manual) Basophils # (Manual) Percent Retic PT INR APTT Heparin Anti-Xa Level POC ABG pH 7.476 H POC ABG pCO2 29.0 L POC ABG pO2 Sodium Potassium Chloride Carbon Dioxide BUN Creatinine Glucose POC Glucose 142 H 59 L Calcium Phosphorus Iron TIBC Lactate Dehydrogenase Total Creatine Kinase NT-Pro-B Natriuret Pep Total Protein Albumin Quyiu-6-Tpkzvokdr Iejob-6-Kffhjkrum Beta Globulins PEP Interpretation Cholesterol LDL Cholesterol Direct Vitamin B12 Urine WBC (Auto) Urine Creatinine Crossmatch 03/30/16 03/30/16 03/31/16 18:41 21:59 05:02 WBC RBC Hgb Hct MCV MCH MCHC RDW Plt Count Lymph % (Auto) [place] % (Auto) Lymph # [place] # Baso # Seg Neutrophils % Seg Neuts % (Manual) Lymphocytes % (Manual) Monocytes % (Manual) Seg Neutrophils # Seg Neutrophils # Man Lymphocytes # (Manual) Monocytes # (Manual) Basophils # (Manual) Percent Retic PT INR APTT Heparin Anti-Xa Level POC ABG pH 7.519 H POC ABG pCO2 21.8 L POC ABG pO2 142 H Sodium Potassium Chloride Carbon Dioxide BUN Creatinine Glucose POC Glucose 145 H 154 H Calcium Phosphorus Iron TIBC Lactate Dehydrogenase Total Creatine Kinase NT-Pro-B Natriuret Pep Total Protein Albumin Zrbct-8-Eubtmkcbs Bewmq-5-Uljbfpxhq Beta Globulins PEP Interpretation Cholesterol LDL Cholesterol Direct Vitamin B12 Urine WBC (Auto) Urine Creatinine Crossmatch 03/31/16 03/31/16 03/31/16 05:15 05:15 05:15 WBC 13.4 H RBC 5.21 H Hgb Hct MCV 81 L MCH 26 L MCHC RDW Plt Count Lymph % (Auto) 9.5 L [place] % (Auto) 14.0 H Lymph # [place] # 1.9 H Baso # Seg Neutrophils % 75.0 H Seg Neuts % (Manual) Lymphocytes % (Manual) Monocytes % (Manual) Seg Neutrophils # 10.1 H Seg Neutrophils # Man Lymphocytes # (Manual) Monocytes # (Manual) Basophils # (Manual) Percent Retic PT INR APTT Heparin Anti-Xa Level POC ABG pH POC ABG pCO2 POC ABG pO2 Sodium Potassium Chloride 108.5 H Carbon Dioxide 19 L BUN Creatinine Glucose 188 H POC Glucose Calcium Phosphorus Iron TIBC Lactate Dehydrogenase Total Creatine Kinase NT-Pro-B Natriuret Pep 1089 H Total Protein Albumin Mhdzl-0-Bbrtjlfzm Vwvvj-8-Hmgttifpd Beta Globulins PEP Interpretation Cholesterol LDL Cholesterol Direct Vitamin B12 Urine WBC (Auto) Urine Creatinine Crossmatch 03/31/16 03/31/16 03/31/16 07:23 11:12 15:20 WBC RBC Hgb Hct MCV MCH MCHC RDW Plt Count Lymph % (Auto) [place] % (Auto) Lymph # [place] # Baso # Seg Neutrophils % Seg Neuts % (Manual) Lymphocytes % (Manual) Monocytes % (Manual) Seg Neutrophils # Seg Neutrophils # Man Lymphocytes # (Manual) Monocytes # (Manual) Basophils # (Manual) Percent Retic PT INR APTT Heparin Anti-Xa Level POC ABG pH POC ABG pCO2 POC ABG pO2 Sodium Potassium Chloride Carbon Dioxide BUN Creatinine Glucose POC Glucose 233 H 228 H 208 H Calcium Phosphorus Iron TIBC Lactate Dehydrogenase Total Creatine Kinase NT-Pro-B Natriuret Pep Total Protein Albumin Fnzci-8-Vbvijtxou Hlawn-6-Nchqdbvjm Beta Globulins PEP Interpretation Cholesterol LDL Cholesterol Direct Vitamin B12 Urine WBC (Auto) Urine Creatinine Crossmatch 03/31/16 04/01/16 04/01/16 21:27 04:41 05:35 WBC 12.1 H RBC Hgb Hct MCV 81 L MCH 26 L MCHC RDW Plt Count Lymph % (Auto) 8.5 L [place] % (Auto) 14.0 H Lymph # 1.0 L [place] # 1.7 H Baso # Seg Neutrophils % 76.2 H Seg Neuts % (Manual) Lymphocytes % (Manual) Monocytes % (Manual) Seg Neutrophils # 9.2 H Seg Neutrophils # Man Lymphocytes # (Manual) Monocytes # (Manual) Basophils # (Manual) Percent Retic PT INR APTT Heparin Anti-Xa Level POC ABG pH 7.455 H POC ABG pCO2 31.0 L POC ABG pO2 Sodium Potassium Chloride Carbon Dioxide BUN Creatinine Glucose POC Glucose 162 H Calcium Phosphorus Iron TIBC Lactate Dehydrogenase Total Creatine Kinase NT-Pro-B Natriuret Pep Total Protein Albumin Tupxr-2-Bqtwwntdb Ryxif-4-Vehocgppw Beta Globulins PEP Interpretation Cholesterol LDL Cholesterol Direct Vitamin B12 Urine WBC (Auto) Urine Creatinine Crossmatch 04/01/16 04/01/16 04/01/16 05:35 08:44 12:49 WBC RBC Hgb Hct MCV MCH MCHC RDW Plt Count Lymph % (Auto) [place] % (Auto) Lymph # [place] # Baso # Seg Neutrophils % Seg Neuts % (Manual) Lymphocytes % (Manual) Monocytes % (Manual) Seg Neutrophils # Seg Neutrophils # Man Lymphocytes # (Manual) Monocytes # (Manual) Basophils # (Manual) Percent Retic PT INR APTT Heparin Anti-Xa Level POC ABG pH POC ABG pCO2 POC ABG pO2 Sodium Potassium Chloride Carbon Dioxide BUN Creatinine Glucose 256 H POC Glucose 257 H 279 H Calcium 8.0 L Phosphorus Iron TIBC Lactate Dehydrogenase Total Creatine Kinase NT-Pro-B Natriuret Pep 1205 H Total Protein Albumin Ifhzm-1-Zrdphhsiq Peimv-6-Hrtbymmrr Beta Globulins PEP Interpretation Cholesterol LDL Cholesterol Direct Vitamin B12 Urine WBC (Auto) Urine Creatinine Crossmatch 04/01/16 04/02/16 04/02/16 18:12 00:42 04:17 WBC RBC Hgb Hct MCV MCH MCHC RDW Plt Count Lymph % (Auto) [place] % (Auto) Lymph # [place] # Baso # Seg Neutrophils % Seg Neuts % (Manual) Lymphocytes % (Manual) Monocytes % (Manual) Seg Neutrophils # Seg Neutrophils # Man Lymphocytes # (Manual) Monocytes # (Manual) Basophils # (Manual) Percent Retic PT INR APTT Heparin Anti-Xa Level POC ABG pH 7.582 H POC ABG pCO2 26.8 L POC ABG pO2 Sodium Potassium Chloride Carbon Dioxide BUN Creatinine Glucose POC Glucose 168 H 282 H Calcium Phosphorus Iron TIBC Lactate Dehydrogenase Total Creatine Kinase NT-Pro-B Natriuret Pep Total Protein Albumin Yzqrg-3-Ieatkbirz Busat-7-Nqlirvbbm Beta Globulins PEP Interpretation Cholesterol LDL Cholesterol Direct Vitamin B12 Urine WBC (Auto) Urine Creatinine Crossmatch 04/02/16 04/02/16 04/02/16 05:00 05:00 06:27 WBC 12.4 H RBC Hgb Hct MCV 81 L MCH 26 L MCHC RDW Plt Count Lymph % (Auto) 6.4 L [place] % (Auto) 13.3 H Lymph # 0.8 L [place] # 1.7 H Baso # Seg Neutrophils % 79.4 H Seg Neuts % (Manual) Lymphocytes % (Manual) Monocytes % (Manual) Seg Neutrophils # 9.9 H Seg Neutrophils # Man Lymphocytes # (Manual) Monocytes # (Manual) Basophils # (Manual) Percent Retic PT INR APTT Heparin Anti-Xa Level POC ABG pH POC ABG pCO2 POC ABG pO2 Sodium 146 H Potassium Chloride Carbon Dioxide BUN Creatinine Glucose 334 H POC Glucose 317 H Calcium 8.0 L Phosphorus Iron TIBC Lactate Dehydrogenase Total Creatine Kinase NT-Pro-B Natriuret Pep Total Protein Albumin Uooou-[id number] Acioq-6-Fpwhniuvh Beta Globulins PEP Interpretation Cholesterol LDL Cholesterol Direct Vitamin B12 Urine WBC (Auto) Urine Creatinine Crossmatch 04/02/16 04/02/16 04/02/16 11:51 13:10 17:24 WBC RBC Hgb Hct MCV MCH MCHC RDW Plt Count Lymph % (Auto) [place] % (Auto) Lymph # [place] # Baso # Seg Neutrophils % Seg Neuts % (Manual) Lymphocytes % (Manual) Monocytes % (Manual) Seg Neutrophils # Seg Neutrophils # Man Lymphocytes # (Manual) Monocytes # (Manual) Basophils # (Manual) Percent Retic PT INR APTT Heparin Anti-Xa Level POC ABG pH 7.518 H POC ABG pCO2 POC ABG pO2 Sodium Potassium Chloride Carbon Dioxide BUN Creatinine Glucose POC Glucose 278 H 195 H Calcium Phosphorus Iron TIBC Lactate Dehydrogenase Total Creatine Kinase NT-Pro-B Natriuret Pep Total Protein Albumin Ipewy-0-Uuuhqcckm Yzrsa-7-Dmkpekzhd Beta Globulins PEP Interpretation Cholesterol LDL Cholesterol Direct Vitamin B12 Urine WBC (Auto) Urine Creatinine Crossmatch 04/03/16 04/03/16 04/03/16 00:18 04:10 04:10 WBC 14.3 H RBC Hgb Hct MCV 81 L MCH 26 L MCHC RDW Plt Count Lymph % (Auto) 9.0 L [place] % (Auto) 10.7 H Lymph # [place] # 1.5 H Baso # 0.2 H Seg Neutrophils % 78.5 H Seg Neuts % (Manual) Lymphocytes % (Manual) Monocytes % (Manual) Seg Neutrophils # 11.3 H Seg Neutrophils # Man Lymphocytes # (Manual) Monocytes # (Manual) Basophils # (Manual) Percent Retic PT INR APTT Heparin Anti-Xa Level POC ABG pH POC ABG pCO2 POC ABG pO2 Sodium 148 H Potassium Chloride 108.1 H Carbon Dioxide BUN 21 H Creatinine Glucose 227 H POC Glucose 144 H Calcium 8.2 L Phosphorus Iron TIBC Lactate Dehydrogenase Total Creatine Kinase NT-Pro-B Natriuret Pep Total Protein Albumin Ulzio-4-Jidgojeth Dobve-1-Bhenygnpn Beta Globulins PEP Interpretation Cholesterol LDL Cholesterol Direct Vitamin B12 Urine WBC (Auto) Urine Creatinine Crossmatch 04/03/16 04/03/16 04/04/16 11:14 17:10 04:00 WBC 14.5 H RBC Hgb Hct MCV 81 L MCH 26 L MCHC RDW Plt Count Lymph % (Auto) 7.2 L [place] % (Auto) 7.6 H Lymph # 1.0 L [place] # 1.1 H Baso # Seg Neutrophils % 84.5 H Seg Neuts % (Manual) Lymphocytes % (Manual) Monocytes % (Manual) Seg Neutrophils # 12.3 H Seg Neutrophils # Man Lymphocytes # (Manual) Monocytes # (Manual) Basophils # (Manual) Percent Retic PT INR APTT Heparin Anti-Xa Level POC ABG pH POC ABG pCO2 POC ABG pO2 Sodium Potassium Chloride Carbon Dioxide BUN Creatinine Glucose POC Glucose 267 H 212 H Calcium Phosphorus Iron TIBC Lactate Dehydrogenase Total Creatine Kinase NT-Pro-B Natriuret Pep Total Protein Albumin Hcsoz-9-Xegszvkzu Wynkm-7-Ukhbhzbir Beta Globulins PEP Interpretation Cholesterol LDL Cholesterol Direct Vitamin B12 Urine WBC (Auto) Urine Creatinine Crossmatch 04/04/16 04/04/16 04/04/16 05:00 09:55 09:55 WBC RBC Hgb 11.5 L Hct MCV MCH MCHC RDW Plt Count Lymph % (Auto) [place] % (Auto) Lymph # [place] # Baso # Seg Neutrophils % Seg Neuts % (Manual) Lymphocytes % (Manual) Monocytes % (Manual) Seg Neutrophils # Seg Neutrophils # Man Lymphocytes # (Manual) Monocytes # (Manual) Basophils # (Manual) Percent Retic PT INR APTT 42.1 H Heparin Anti-Xa Level POC ABG pH POC ABG pCO2 POC ABG pO2 Sodium 146 H Potassium Chloride Carbon Dioxide BUN 22 H Creatinine Glucose 128 H POC Glucose Calcium Phosphorus Iron TIBC Lactate Dehydrogenase Total Creatine Kinase NT-Pro-B Natriuret Pep Total Protein Albumin Xnqwc-7-Hcrkmuigr Jmxvf-7-Febjchvan Beta Globulins PEP Interpretation Cholesterol LDL Cholesterol Direct Vitamin B12 Urine WBC (Auto) Urine Creatinine Crossmatch 04/04/16 04/04/16 04/04/16 11:45 17:49 17:55 WBC RBC Hgb Hct MCV MCH MCHC RDW Plt Count Lymph % (Auto) [place] % (Auto) Lymph # [place] # Baso # Seg Neutrophils % Seg Neuts % (Manual) Lymphocytes % (Manual) Monocytes % (Manual) Seg Neutrophils # Seg Neutrophils # Man Lymphocytes # (Manual) Monocytes # (Manual) Basophils # (Manual) Percent Retic PT INR APTT Heparin Anti-Xa Level 1.19 H POC ABG pH POC ABG pCO2 POC ABG pO2 Sodium Potassium Chloride Carbon Dioxide BUN Creatinine Glucose POC Glucose 231 H 186 H Calcium Phosphorus Iron TIBC Lactate Dehydrogenase Total Creatine Kinase NT-Pro-B Natriuret Pep Total Protein Albumin Fogkn-0-Kfqnqecaj Lwlfh-6-Efdvdlezr Beta Globulins PEP Interpretation Cholesterol LDL Cholesterol Direct Vitamin B12 Urine WBC (Auto) Urine Creatinine Crossmatch 04/05/16 04/05/16 04/05/16 00:35 05:32 05:42 WBC RBC Hgb Hct MCV MCH MCHC RDW Plt Count Lymph % (Auto) [place] % (Auto) Lymph # [place] # Baso # Seg Neutrophils % Seg Neuts % (Manual) Lymphocytes % (Manual) Monocytes % (Manual) Seg Neutrophils # Seg Neutrophils # Man Lymphocytes # (Manual) Monocytes # (Manual) Basophils # (Manual) Percent Retic PT INR APTT Heparin Anti-Xa Level POC ABG pH 7.491 H POC ABG pCO2 POC ABG pO2 Sodium Potassium Chloride Carbon Dioxide BUN Creatinine Glucose POC Glucose 192 H 242 H Calcium Phosphorus Iron TIBC Lactate Dehydrogenase Total Creatine Kinase NT-Pro-B Natriuret Pep Total Protein Albumin Iepae-5-Rymmesaom Opofh-8-Vhoqqvqxn Beta Globulins PEP Interpretation Cholesterol LDL Cholesterol Direct Vitamin B12 Urine WBC (Auto) Urine Creatinine Crossmatch 04/05/16 04/05/16 04/05/16 06:20 06:20 12:19 WBC 13.9 H RBC Hgb 11.6 L Hct MCV 81 L MCH 26 L MCHC RDW Plt Count Lymph % (Auto) 9.6 L [place] % (Auto) 8.7 H Lymph # [place] # 1.2 H Baso # Seg Neutrophils % 80.9 H Seg Neuts % (Manual) Lymphocytes % (Manual) Monocytes % (Manual) Seg Neutrophils # 11.3 H Seg Neutrophils # Man Lymphocytes # (Manual) Monocytes # (Manual) Basophils # (Manual) Percent Retic PT INR APTT Heparin Anti-Xa Level POC ABG pH POC ABG pCO2 POC ABG pO2 Sodium 148 H Potassium Chloride Carbon Dioxide BUN 23 H Creatinine Glucose 242 H POC Glucose 187 H Calcium Phosphorus Iron TIBC Lactate Dehydrogenase Total Creatine Kinase NT-Pro-B Natriuret Pep Total Protein Albumin Pzonc-6-Hqphfbubn Czyca-6-Ygippfcxo Beta Globulins PEP Interpretation Cholesterol LDL Cholesterol Direct Vitamin B12 Urine WBC (Auto) Urine Creatinine Crossmatch 04/05/16 04/05/16 04/06/16 17:10 23:45 05:23 WBC 13.0 H RBC Hgb Hct MCV 82 L MCH 26 L MCHC 31 L RDW Plt Count Lymph % (Auto) 6.7 L [place] % (Auto) 8.3 H Lymph # 0.9 L [place] # 1.1 H Baso # Seg Neutrophils % 84.6 H Seg Neuts % (Manual) Lymphocytes % (Manual) Monocytes % (Manual) Seg Neutrophils # 11.0 H Seg Neutrophils # Man Lymphocytes # (Manual) Monocytes # (Manual) Basophils # (Manual) Percent Retic PT INR APTT Heparin Anti-Xa Level POC ABG pH POC ABG pCO2 POC ABG pO2 Sodium Potassium Chloride Carbon Dioxide BUN Creatinine Glucose POC Glucose 169 H 202 H Calcium Phosphorus Iron TIBC Lactate Dehydrogenase Total Creatine Kinase NT-Pro-B Natriuret Pep Total Protein Albumin Darai-2-Mryixlbvc Vfvft-1-Qqqbpzncj Beta Globulins PEP Interpretation Cholesterol LDL Cholesterol Direct Vitamin B12 Urine WBC (Auto) Urine Creatinine Crossmatch 04/06/16 04/06/16 04/06/16 05:23 05:23 06:11 WBC RBC Hgb Hct MCV MCH MCHC RDW Plt Count Lymph % (Auto) [place] % (Auto) Lymph # [place] # Baso # Seg Neutrophils % Seg Neuts % (Manual) Lymphocytes % (Manual) Monocytes % (Manual) Seg Neutrophils # Seg Neutrophils # Man Lymphocytes # (Manual) Monocytes # (Manual) Basophils # (Manual) Percent Retic PT INR APTT Heparin Anti-Xa Level 0.21 L POC ABG pH POC ABG pCO2 POC ABG pO2 Sodium 153 H Potassium Chloride 111.3 H Carbon Dioxide BUN 22 H Creatinine Glucose 62 L POC Glucose 56 L Calcium Phosphorus Iron TIBC Lactate Dehydrogenase Total Creatine Kinase NT-Pro-B Natriuret Pep Total Protein Albumin Xbnrt-0-Adnnzswfi Ukpjq-3-Pmgponbom Beta Globulins PEP Interpretation Cholesterol LDL Cholesterol Direct Vitamin B12 Urine WBC (Auto) Urine Creatinine Crossmatch 04/06/16 04/06/16 04/06/16 06:52 11:36 14:58 WBC RBC Hgb Hct MCV MCH MCHC RDW Plt Count Lymph % (Auto) [place] % (Auto) Lymph # [place] # Baso # Seg Neutrophils % Seg Neuts % (Manual) Lymphocytes % (Manual) Monocytes % (Manual) Seg Neutrophils # Seg Neutrophils # Man Lymphocytes # (Manual) Monocytes # (Manual) Basophils # (Manual) Percent Retic PT INR APTT Heparin Anti-Xa Level POC ABG pH POC ABG pCO2 POC ABG pO2 Sodium Potassium Chloride Carbon Dioxide BUN Creatinine Glucose POC Glucose 206 H 139 H 147 H Calcium Phosphorus Iron TIBC Lactate Dehydrogenase Total Creatine Kinase NT-Pro-B Natriuret Pep Total Protein Albumin Vaemw-8-Xpwudaxcm Ltdhp-5-Luylmqwyk Beta Globulins PEP Interpretation Cholesterol LDL Cholesterol Direct Vitamin B12 Urine WBC (Auto) Urine Creatinine Crossmatch 04/06/16 04/06/16 04/06/16 16:03 21:18 23:53 WBC RBC Hgb Hct MCV MCH MCHC RDW Plt Count Lymph % (Auto) [place] % (Auto) Lymph # [place] # Baso # Seg Neutrophils % Seg Neuts % (Manual) Lymphocytes % (Manual) Monocytes % (Manual) Seg Neutrophils # Seg Neutrophils # Man Lymphocytes # (Manual) Monocytes # (Manual) Basophils # (Manual) Percent Retic PT INR APTT Heparin Anti-Xa Level POC ABG pH POC ABG pCO2 POC ABG pO2 Sodium Potassium Chloride Carbon Dioxide BUN Creatinine Glucose POC Glucose 154 H 293 H 301 H Calcium Phosphorus Iron TIBC Lactate Dehydrogenase Total Creatine Kinase NT-Pro-B Natriuret Pep Total Protein Albumin Xdbmm-1-Iwpqjdslq Zabco-8-Ogaqebnbu Beta Globulins PEP Interpretation Cholesterol LDL Cholesterol Direct Vitamin B12 Urine WBC (Auto) Urine Creatinine Crossmatch 04/07/16 04/07/16 04/07/16 02:30 05:11 05:11 WBC 12.5 H RBC Hgb 11.5 L Hct MCV 82 L MCH 26 L MCHC 31 L RDW Plt Count Lymph % (Auto) [place] % (Auto) Lymph # [place] # Baso # Seg Neutrophils % Seg Neuts % (Manual) Lymphocytes % (Manual) Monocytes % (Manual) Seg Neutrophils # Seg Neutrophils # Man Lymphocytes # (Manual) Monocytes # (Manual) Basophils # (Manual) Percent Retic PT INR APTT Heparin Anti-Xa Level 0.11 L POC ABG pH POC ABG pCO2 POC ABG pO2 Sodium 150 H Potassium Chloride 109.5 H Carbon Dioxide BUN 28 H Creatinine Glucose 264 H POC Glucose Calcium Phosphorus Iron TIBC Lactate Dehydrogenase Total Creatine Kinase NT-Pro-B Natriuret Pep Total Protein Albumin Urseh-9-Ozlhrbkuu Ahims-2-Jugqhbely Beta Globulins PEP Interpretation Cholesterol LDL Cholesterol Direct Vitamin B12 Urine WBC (Auto) Urine Creatinine Crossmatch 04/07/16 04/07/16 04/07/16 06:46 10:18 11:50 WBC RBC Hgb Hct MCV MCH MCHC RDW Plt Count Lymph % (Auto) [place] % (Auto) Lymph # [place] # Baso # Seg Neutrophils % Seg Neuts % (Manual) Lymphocytes % (Manual) Monocytes % (Manual) Seg Neutrophils # Seg Neutrophils # Man Lymphocytes # (Manual) Monocytes # (Manual) Basophils # (Manual) Percent Retic PT 15.1 H INR 1.20 H APTT Heparin Anti-Xa Level POC ABG pH POC ABG pCO2 POC ABG pO2 Sodium Potassium Chloride Carbon Dioxide BUN Creatinine Glucose POC Glucose 259 H 288 H Calcium Phosphorus Iron TIBC Lactate Dehydrogenase Total Creatine Kinase NT-Pro-B Natriuret Pep Total Protein Albumin Nvgds-6-Kfflmeusy Saydm-1-Nhgzjlieg Beta Globulins PEP Interpretation Cholesterol LDL Cholesterol Direct Vitamin B12 Urine WBC (Auto) Urine Creatinine Crossmatch 04/07/16 04/08/16 04/08/16 17:58 01:25 06:49 WBC RBC Hgb Hct MCV MCH MCHC RDW Plt Count Lymph % (Auto) [place] % (Auto) Lymph # [place] # Baso # Seg Neutrophils % Seg Neuts % (Manual) Lymphocytes % (Manual) Monocytes % (Manual) Seg Neutrophils # Seg Neutrophils # Man Lymphocytes # (Manual) Monocytes # (Manual) Basophils # (Manual) Percent Retic PT INR APTT Heparin Anti-Xa Level POC ABG pH POC ABG pCO2 POC ABG pO2 Sodium 156 H Potassium Chloride 114.7 H Carbon Dioxide BUN 33 H Creatinine Glucose 169 H POC Glucose 330 H 146 H Calcium Phosphorus Iron TIBC Lactate Dehydrogenase Total Creatine Kinase NT-Pro-B Natriuret Pep Total Protein Albumin Qvcwz-9-Hneqfpbxm Imqwh-9-Fuybcxgrq Beta Globulins PEP Interpretation Cholesterol LDL Cholesterol Direct Vitamin B12 Urine WBC (Auto) Urine Creatinine Crossmatch 04/08/16 04/08/16 04/08/16 07:34 10:28 10:28 WBC RBC Hgb Hct MCV MCH MCHC RDW Plt Count Lymph % (Auto) [place] % (Auto) Lymph # [place] # Baso # Seg Neutrophils % Seg Neuts % (Manual) Lymphocytes % (Manual) Monocytes % (Manual) Seg Neutrophils # Seg Neutrophils # Man Lymphocytes # (Manual) Monocytes # (Manual) Basophils # (Manual) Percent Retic PT 15.5 H INR 1.24 H APTT Heparin Anti-Xa Level 0.24 L POC ABG pH POC ABG pCO2 POC ABG pO2 Sodium Potassium Chloride Carbon Dioxide BUN Creatinine Glucose POC Glucose 232 H Calcium Phosphorus Iron TIBC Lactate Dehydrogenase Total Creatine Kinase NT-Pro-B Natriuret Pep Total Protein Albumin Gcjfp-4-Hdzupbizz Tvgnp-4-Jekmnjdcd Beta Globulins PEP Interpretation Cholesterol LDL Cholesterol Direct Vitamin B12 Urine WBC (Auto) Urine Creatinine Crossmatch 04/08/16 04/08/16 04/09/16 11:36 15:38 00:01 WBC RBC Hgb Hct MCV MCH MCHC RDW Plt Count Lymph % (Auto) [place] % (Auto) Lymph # [place] # Baso # Seg Neutrophils % Seg Neuts % (Manual) Lymphocytes % (Manual) Monocytes % (Manual) Seg Neutrophils # Seg Neutrophils # Man Lymphocytes # (Manual) Monocytes # (Manual) Basophils # (Manual) Percent Retic PT INR APTT Heparin Anti-Xa Level POC ABG pH POC ABG pCO2 POC ABG pO2 Sodium Potassium Chloride Carbon Dioxide BUN Creatinine Glucose POC Glucose 193 H 163 H 180 H Calcium Phosphorus Iron TIBC Lactate Dehydrogenase Total Creatine Kinase NT-Pro-B Natriuret Pep Total Protein Albumin Ddjae-7-Vybslswnk Ytvbq-4-Qkzcvbnzb Beta Globulins PEP Interpretation Cholesterol LDL Cholesterol Direct Vitamin B12 Urine WBC (Auto) Urine Creatinine Crossmatch 04/09/16 04/09/16 04/09/16 06:17 06:42 06:42 WBC RBC Hgb Hct MCV MCH MCHC RDW Plt Count Lymph % (Auto) [place] % (Auto) Lymph # [place] # Baso # Seg Neutrophils % Seg Neuts % (Manual) Lymphocytes % (Manual) Monocytes % (Manual) Seg Neutrophils # Seg Neutrophils # Man Lymphocytes # (Manual) Monocytes # (Manual) Basophils # (Manual) Percent Retic PT 17.4 H INR 1.43 H APTT Heparin Anti-Xa Level POC ABG pH POC ABG pCO2 POC ABG pO2 Sodium 153 H Potassium Chloride 113.2 H Carbon Dioxide BUN 29 H Creatinine Glucose 301 H POC Glucose 249 H Calcium 8.3 L Phosphorus Iron TIBC Lactate Dehydrogenase Total Creatine Kinase NT-Pro-B Natriuret Pep Total Protein Albumin Ygucz-9-Nbyuxjllr Vouur-5-Kgmntxyos Beta Globulins PEP Interpretation Cholesterol LDL Cholesterol Direct Vitamin B12 Urine WBC (Auto) Urine Creatinine Crossmatch 04/09/16 04/09/16 04/09/16 07:37 11:26 15:45 WBC RBC Hgb Hct MCV MCH MCHC RDW Plt Count Lymph % (Auto) [place] % (Auto) Lymph # [place] # Baso # Seg Neutrophils % Seg Neuts % (Manual) Lymphocytes % (Manual) Monocytes % (Manual) Seg Neutrophils # Seg Neutrophils # Man Lymphocytes # (Manual) Monocytes # (Manual) Basophils # (Manual) Percent Retic PT INR APTT Heparin Anti-Xa Level POC ABG pH POC ABG pCO2 POC ABG pO2 Sodium Potassium Chloride Carbon Dioxide BUN Creatinine Glucose POC Glucose 283 H 306 H 354 H Calcium Phosphorus Iron TIBC Lactate Dehydrogenase Total Creatine Kinase NT-Pro-B Natriuret Pep Total Protein Albumin Rcmgx-2-Ghqunnxyv Lurih-5-Dxmsihxqk Beta Globulins PEP Interpretation Cholesterol LDL Cholesterol Direct Vitamin B12 Urine WBC (Auto) Urine Creatinine Crossmatch 04/10/16 04/10/16 04/10/16 00:53 07:15 07:34 WBC RBC Hgb 11.3 L Hct MCV MCH MCHC RDW Plt Count Lymph % (Auto) [place] % (Auto) Lymph # [place] # Baso # Seg Neutrophils % Seg Neuts % (Manual) Lymphocytes % (Manual) Monocytes % (Manual) Seg Neutrophils # Seg Neutrophils # Man Lymphocytes # (Manual) Monocytes # (Manual) Basophils # (Manual) Percent Retic PT INR APTT Heparin Anti-Xa Level POC ABG pH POC ABG pCO2 POC ABG pO2 Sodium Potassium Chloride Carbon Dioxide BUN Creatinine Glucose POC Glucose 323 H 311 H Calcium Phosphorus Iron TIBC Lactate Dehydrogenase Total Creatine Kinase NT-Pro-B Natriuret Pep Total Protein Albumin Xmijo-6-Inksswycd Fhqwi-5-Fwajgbzrj Beta Globulins PEP Interpretation Cholesterol LDL Cholesterol Direct Vitamin B12 Urine WBC (Auto) Urine Creatinine Crossmatch 04/10/16 04/10/16 04/10/16 07:34 07:34 11:25 WBC RBC Hgb Hct MCV MCH MCHC RDW Plt Count Lymph % (Auto) [place] % (Auto) Lymph # [place] # Baso # Seg Neutrophils % Seg Neuts % (Manual) Lymphocytes % (Manual) Monocytes % (Manual) Seg Neutrophils # Seg Neutrophils # Man Lymphocytes # (Manual) Monocytes # (Manual) Basophils # (Manual) Percent Retic PT 17.3 H INR 1.42 H APTT Heparin Anti-Xa Level POC ABG pH POC ABG pCO2 POC ABG pO2 Sodium 158 H Potassium Chloride 118.6 H Carbon Dioxide BUN 30 H Creatinine Glucose 330 H POC Glucose 335 H Calcium 8.3 L Phosphorus Iron TIBC Lactate Dehydrogenase Total Creatine Kinase NT-Pro-B Natriuret Pep Total Protein Albumin Bmooc-5-Isfgylqwu Vaxom-0-Hnbhtrkse Beta Globulins PEP Interpretation Cholesterol LDL Cholesterol Direct Vitamin B12 Urine WBC (Auto) Urine Creatinine Crossmatch 04/10/16 04/11/16 04/11/16 16:21 00:29 07:47 WBC RBC Hgb Hct MCV MCH MCHC RDW Plt Count Lymph % (Auto) [place] % (Auto) Lymph # [place] # Baso # Seg Neutrophils % Seg Neuts % (Manual) Lymphocytes % (Manual) Monocytes % (Manual) Seg Neutrophils # Seg Neutrophils # Man Lymphocytes # (Manual) Monocytes # (Manual) Basophils # (Manual) Percent Retic PT 18.4 H INR 1.53 H APTT Heparin Anti-Xa Level POC ABG pH POC ABG pCO2 POC ABG pO2 Sodium Potassium Chloride Carbon Dioxide BUN Creatinine Glucose POC Glucose 230 H 162 H Calcium Phosphorus Iron TIBC Lactate Dehydrogenase Total Creatine Kinase NT-Pro-B Natriuret Pep Total Protein Albumin Ihprj-1-Znckgjhxb Rmpli-6-Ssthutxiq Beta Globulins PEP Interpretation Cholesterol LDL Cholesterol Direct Vitamin B12 Urine WBC (Auto) Urine Creatinine Crossmatch 04/11/16 04/11/16 04/12/16 07:47 11:22 04:54 WBC RBC Hgb 11.0 L Hct 35.0 L MCV MCH MCHC RDW Plt Count Lymph % (Auto) [place] % (Auto) Lymph # [place] # Baso # Seg Neutrophils % Seg Neuts % (Manual) Lymphocytes % (Manual) Monocytes % (Manual) Seg Neutrophils # Seg Neutrophils # Man Lymphocytes # (Manual) Monocytes # (Manual) Basophils # (Manual) Percent Retic PT INR APTT Heparin Anti-Xa Level POC ABG pH POC ABG pCO2 POC ABG pO2 Sodium 155 H Potassium Chloride 114.5 H Carbon Dioxide BUN 23 H Creatinine Glucose 157 H POC Glucose 229 H Calcium Phosphorus Iron TIBC Lactate Dehydrogenase Total Creatine Kinase NT-Pro-B Natriuret Pep Total Protein Albumin Tdzvi-2-Pqavuqueo Trjmv-4-Zjvjmmhqt Beta Globulins PEP Interpretation Cholesterol LDL Cholesterol Direct Vitamin B12 Urine WBC (Auto) Urine Creatinine Crossmatch 04/12/16 04/12/16 04/12/16 04:54 04:54 05:57 WBC RBC Hgb Hct MCV MCH MCHC RDW Plt Count Lymph % (Auto) [place] % (Auto) Lymph # [place] # Baso # Seg Neutrophils % Seg Neuts % (Manual) Lymphocytes % (Manual) Monocytes % (Manual) Seg Neutrophils # Seg Neutrophils # Man Lymphocytes # (Manual) Monocytes # (Manual) Basophils # (Manual) Percent Retic PT 22.5 H INR 1.98 H APTT Heparin Anti-Xa Level 0.19 L POC ABG pH POC ABG pCO2 POC ABG pO2 Sodium 156 H Potassium Chloride 115.4 H Carbon Dioxide BUN 23 H Creatinine Glucose 143 H POC Glucose 194 H Calcium Phosphorus Iron TIBC Lactate Dehydrogenase Total Creatine Kinase NT-Pro-B Natriuret Pep Total Protein Albumin Phgez-0-Ldqyvguri Brvdg-0-Ijjtdqpte Beta Globulins PEP Interpretation Cholesterol LDL Cholesterol Direct Vitamin B12 Urine WBC (Auto) Urine Creatinine Crossmatch 04/12/16 04/12/16 04/12/16 12:34 19:01 23:30 WBC RBC Hgb Hct MCV MCH MCHC RDW Plt Count Lymph % (Auto) [place] % (Auto) Lymph # [place] # Baso # Seg Neutrophils % Seg Neuts % (Manual) Lymphocytes % (Manual) Monocytes % (Manual) Seg Neutrophils # Seg Neutrophils # Man Lymphocytes # (Manual) Monocytes # (Manual) Basophils # (Manual) Percent Retic PT INR APTT Heparin Anti-Xa Level POC ABG pH POC ABG pCO2 POC ABG pO2 Sodium Potassium Chloride Carbon Dioxide BUN Creatinine Glucose POC Glucose 291 H 235 H 154 H Calcium Phosphorus Iron TIBC Lactate Dehydrogenase Total Creatine Kinase NT-Pro-B Natriuret Pep Total Protein Albumin Qyssa-2-Wwevgxdhr Iprym-5-Cyhqmdjec Beta Globulins PEP Interpretation Cholesterol LDL Cholesterol Direct Vitamin B12 Urine WBC (Auto) Urine Creatinine Crossmatch 04/13/16 04/13/16 04/13/16 05:16 05:16 05:28 WBC RBC Hgb Hct MCV MCH MCHC RDW Plt Count Lymph % (Auto) [place] % (Auto) Lymph # [place] # Baso # Seg Neutrophils % Seg Neuts % (Manual) Lymphocytes % (Manual) Monocytes % (Manual) Seg Neutrophils # Seg Neutrophils # Man Lymphocytes # (Manual) Monocytes # (Manual) Basophils # (Manual) Percent Retic PT 27.0 H INR 2.49 H APTT Heparin Anti-Xa Level 0.20 L POC ABG pH POC ABG pCO2 POC ABG pO2 Sodium 150 H Potassium Chloride 110.5 H Carbon Dioxide BUN 21 H Creatinine Glucose 159 H POC Glucose 177 H Calcium Phosphorus Iron TIBC Lactate Dehydrogenase Total Creatine Kinase NT-Pro-B Natriuret Pep Total Protein Albumin Fnnlu-2-Vaiepoceb Mybrn-6-Tnbrmbgco Beta Globulins PEP Interpretation Cholesterol LDL Cholesterol Direct Vitamin B12 Urine WBC (Auto) Urine Creatinine Crossmatch 04/13/16 04/13/16 04/14/16 11:30 17:54 00:44 WBC RBC Hgb Hct MCV MCH MCHC RDW Plt Count Lymph % (Auto) [place] % (Auto) Lymph # [place] # Baso # Seg Neutrophils % Seg Neuts % (Manual) Lymphocytes % (Manual) Monocytes % (Manual) Seg Neutrophils # Seg Neutrophils # Man Lymphocytes # (Manual) Monocytes # (Manual) Basophils # (Manual) Percent Retic PT INR APTT Heparin Anti-Xa Level POC ABG pH POC ABG pCO2 POC ABG pO2 Sodium Potassium Chloride Carbon Dioxide BUN Creatinine Glucose POC Glucose 181 H 251 H 237 H Calcium Phosphorus Iron TIBC Lactate Dehydrogenase Total Creatine Kinase NT-Pro-B Natriuret Pep Total Protein Albumin Ncroj-2-Tmapewwnj Ndgtt-3-Opranipki Beta Globulins PEP Interpretation Cholesterol LDL Cholesterol Direct Vitamin B12 Urine WBC (Auto) Urine Creatinine Crossmatch 04/14/16 04/14/16 04/14/16 05:00 05:42 05:42 WBC RBC Hgb Hct MCV MCH MCHC RDW Plt Count Lymph % (Auto) [place] % (Auto) Lymph # [place] # Baso # Seg Neutrophils % Seg Neuts % (Manual) Lymphocytes % (Manual) Monocytes % (Manual) Seg Neutrophils # Seg Neutrophils # Man Lymphocytes # (Manual) Monocytes # (Manual) Basophils # (Manual) Percent Retic PT 30.3 H INR 2.88 H APTT Heparin Anti-Xa Level 0.27 L POC ABG pH POC ABG pCO2 POC ABG pO2 Sodium Potassium 3.5 L Chloride Carbon Dioxide BUN Creatinine Glucose 160 H POC Glucose Calcium 8.2 L Phosphorus Iron TIBC Lactate Dehydrogenase Total Creatine Kinase NT-Pro-B Natriuret Pep Total Protein Albumin Iadbj-5-Cqjhfdawf Uryxs-1-Xyzfmzlxi Beta Globulins PEP Interpretation Cholesterol LDL Cholesterol Direct Vitamin B12 Urine WBC (Auto) Urine Creatinine Crossmatch 04/14/16 04/14/16 04/14/16 06:02 06:16 09:18 WBC 12.3 H RBC Hgb 11.4 L Hct MCV 82 L MCH 26 L MCHC RDW Plt Count Lymph % (Auto) [place] % (Auto) Lymph # [place] # Baso # Seg Neutrophils % Seg Neuts % (Manual) Lymphocytes % (Manual) Monocytes % (Manual) Seg Neutrophils # Seg Neutrophils # Man Lymphocytes # (Manual) Monocytes # (Manual) Basophils # (Manual) Percent Retic PT INR APTT Heparin Anti-Xa Level POC ABG pH POC ABG pCO2 POC ABG pO2 Sodium Potassium Chloride Carbon Dioxide BUN Creatinine Glucose POC Glucose 156 H 164 H Calcium Phosphorus Iron TIBC Lactate Dehydrogenase Total Creatine Kinase NT-Pro-B Natriuret Pep Total Protein Albumin Umjjt-9-Rwnlbkmsa Aqlyk-1-Pdvrktvvk Beta Globulins PEP Interpretation Cholesterol LDL Cholesterol Direct Vitamin B12 Urine WBC (Auto) Urine Creatinine Crossmatch 04/14/16 04/15/16 04/15/16 13:58 01:07 06:04 WBC RBC Hgb Hct MCV MCH MCHC RDW Plt Count Lymph % (Auto) [place] % (Auto) Lymph # [place] # Baso # Seg Neutrophils % Seg Neuts % (Manual) Lymphocytes % (Manual) Monocytes % (Manual) Seg Neutrophils # Seg Neutrophils # Man Lymphocytes # (Manual) Monocytes # (Manual) Basophils # (Manual) Percent Retic PT 24.9 H INR 2.25 H APTT Heparin Anti-Xa Level POC ABG pH POC ABG pCO2 POC ABG pO2 Sodium Potassium Chloride Carbon Dioxide BUN Creatinine Glucose POC Glucose 109 H 154 H Calcium Phosphorus Iron TIBC Lactate Dehydrogenase Total Creatine Kinase NT-Pro-B Natriuret Pep Total Protein Albumin [id number] Lidrm-7-Lputuokgv Beta Globulins PEP Interpretation Cholesterol LDL Cholesterol Direct Vitamin B12 Urine WBC (Auto) Urine Creatinine Crossmatch 04/15/16 04/15/16 04/16/16 06:08 12:41 00:38 WBC RBC Hgb Hct MCV MCH MCHC RDW Plt Count Lymph % (Auto) [place] % (Auto) Lymph # [place] # Baso # Seg Neutrophils % Seg Neuts % (Manual) Lymphocytes % (Manual) Monocytes % (Manual) Seg Neutrophils # Seg Neutrophils # Man Lymphocytes # (Manual) Monocytes # (Manual) Basophils # (Manual) Percent Retic PT INR APTT Heparin Anti-Xa Level POC ABG pH POC ABG pCO2 POC ABG pO2 Sodium Potassium Chloride Carbon Dioxide BUN Creatinine Glucose POC Glucose 165 H 223 H 216 H Calcium Phosphorus Iron TIBC Lactate Dehydrogenase Total Creatine Kinase NT-Pro-B Natriuret Pep Total Protein Albumin Qsyvl-1-Lbcfwcgay Kceoy-2-Obuyguknc Beta Globulins PEP Interpretation Cholesterol LDL Cholesterol Direct Vitamin B12 Urine WBC (Auto) Urine Creatinine Crossmatch 04/16/16 04/16/16 04/16/16 05:45 07:09 14:00 WBC RBC Hgb Hct MCV MCH MCHC RDW Plt Count Lymph % (Auto) [place] % (Auto) Lymph # [place] # Baso # Seg Neutrophils % Seg Neuts % (Manual) Lymphocytes % (Manual) Monocytes % (Manual) Seg Neutrophils # Seg Neutrophils # Man Lymphocytes # (Manual) Monocytes # (Manual) Basophils # (Manual) Percent Retic PT 19.4 H INR 1.64 H APTT Heparin Anti-Xa Level 0.10 L POC ABG pH POC ABG pCO2 POC ABG pO2 Sodium Potassium Chloride Carbon Dioxide BUN Creatinine Glucose POC Glucose 207 H 69 L Calcium Phosphorus Iron TIBC Lactate Dehydrogenase Total Creatine Kinase NT-Pro-B Natriuret Pep Total Protein Albumin Qlahw-1-Ehroubmap Lpcry-7-Jnkvxsbmd Beta Globulins PEP Interpretation Cholesterol LDL Cholesterol Direct Vitamin B12 Urine WBC (Auto) Urine Creatinine Crossmatch 04/16/16 04/16/16 04/16/16 17:40 17:52 19:38 WBC RBC Hgb Hct MCV MCH MCHC RDW Plt Count Lymph % (Auto) [place] % (Auto) Lymph # [place] # Baso # Seg Neutrophils % Seg Neuts % (Manual) Lymphocytes % (Manual) Monocytes % (Manual) Seg Neutrophils # Seg Neutrophils # Man Lymphocytes # (Manual) Monocytes # (Manual) Basophils # (Manual) Percent Retic PT INR APTT Heparin Anti-Xa Level 0.26 L POC ABG pH 7.543 H 7.488 H POC ABG pCO2 26.3 L 30.3 L POC ABG pO2 55 L 203 H Sodium Potassium Chloride Carbon Dioxide BUN Creatinine Glucose POC Glucose Calcium Phosphorus Iron TIBC Lactate Dehydrogenase Total Creatine Kinase NT-Pro-B Natriuret Pep Total Protein Albumin Iixgj-1-Aqzcpkaec Yllfr-0-Wptczrfmu Beta Globulins PEP Interpretation Cholesterol LDL Cholesterol Direct Vitamin B12 Urine WBC (Auto) Urine Creatinine Crossmatch 04/17/16 04/17/16 04/17/16 00:04 05:10 05:36 WBC RBC Hgb Hct MCV MCH MCHC RDW Plt Count Lymph % (Auto) [place] % (Auto) Lymph # [place] # Baso # Seg Neutrophils % Seg Neuts % (Manual) Lymphocytes % (Manual) Monocytes % (Manual) Seg Neutrophils # Seg Neutrophils # Man Lymphocytes # (Manual) Monocytes # (Manual) Basophils # (Manual) Percent Retic PT INR APTT Heparin Anti-Xa Level POC ABG pH POC ABG pCO2 32.7 L POC ABG pO2 68 L Sodium Potassium Chloride Carbon Dioxide BUN Creatinine Glucose POC Glucose 113 H 161 H Calcium Phosphorus Iron TIBC Lactate Dehydrogenase Total Creatine Kinase NT-Pro-B Natriuret Pep Total Protein Albumin Mzklj-4-Zfaqqajop Woprh-3-Survbmfla Beta Globulins PEP Interpretation Cholesterol LDL Cholesterol Direct Vitamin B12 Urine WBC (Auto) Urine Creatinine Crossmatch 04/17/16 04/17/16 04/17/16 05:41 08:37 11:46 WBC RBC Hgb Hct MCV MCH MCHC RDW Plt Count Lymph % (Auto) [place] % (Auto) Lymph # [place] # Baso # Seg Neutrophils % Seg Neuts % (Manual) Lymphocytes % (Manual) Monocytes % (Manual) Seg Neutrophils # Seg Neutrophils # Man Lymphocytes # (Manual) Monocytes # (Manual) Basophils # (Manual) Percent Retic PT 17.4 H INR 1.43 H APTT Heparin Anti-Xa Level POC ABG pH POC ABG pCO2 POC ABG pO2 Sodium Potassium Chloride Carbon Dioxide BUN Creatinine Glucose POC Glucose 154 H 138 H Calcium Phosphorus Iron TIBC Lactate Dehydrogenase Total Creatine Kinase NT-Pro-B Natriuret Pep Total Protein Albumin Hyipw-7-Taixstrsk Wjffo-7-Soamjsqfp Beta Globulins PEP Interpretation Cholesterol LDL Cholesterol Direct Vitamin B12 Urine WBC (Auto) Urine Creatinine Crossmatch 04/17/16 04/17/16 04/17/16 12:17 12:17 21:20 WBC 16.5 H RBC 3.31 L Hgb 8.8 L Hct 26.9 L MCV 81 L MCH 27 L MCHC RDW 15.5 H Plt Count Lymph % (Auto) [place] % (Auto) Lymph # [place] # Baso # Seg Neutrophils % Seg Neuts % (Manual) Lymphocytes % (Manual) 3.0 L Monocytes % (Manual) Seg Neutrophils # Seg Neutrophils # Man 10.1 H Lymphocytes # (Manual) 0.5 L Monocytes # (Manual) Basophils # (Manual) Percent Retic PT INR APTT Heparin Anti-Xa Level 0.14 L POC ABG pH POC ABG pCO2 POC ABG pO2 Sodium Potassium Chloride Carbon Dioxide 21 L BUN 38 H Creatinine 1.8 H D Glucose 131 H POC Glucose Calcium 7.6 L Phosphorus Iron TIBC Lactate Dehydrogenase Total Creatine Kinase NT-Pro-B Natriuret Pep Total Protein Albumin Iuhsz-6-Iqdoxfutp Ijhjl-8-Tkjjzgcao Beta Globulins PEP Interpretation Cholesterol LDL Cholesterol Direct Vitamin B12 Urine WBC (Auto) Urine Creatinine Crossmatch 04/17/16 04/17/16 04/18/16 23:38 23:41 00:21 WBC RBC Hgb Hct MCV MCH MCHC RDW Plt Count Lymph % (Auto) [place] % (Auto) Lymph # [place] # Baso # Seg Neutrophils % Seg Neuts % (Manual) Lymphocytes % (Manual) Monocytes % (Manual) Seg Neutrophils # Seg Neutrophils # Man Lymphocytes # (Manual) Monocytes # (Manual) Basophils # (Manual) Percent Retic PT INR APTT Heparin Anti-Xa Level POC ABG pH POC ABG pCO2 POC ABG pO2 Sodium Potassium Chloride Carbon Dioxide BUN Creatinine Glucose POC Glucose < 40 L < 40 L 223 H Calcium Phosphorus Iron TIBC Lactate Dehydrogenase Total Creatine Kinase NT-Pro-B Natriuret Pep Total Protein Albumin Liuje-9-Ggrxsdtzj Vrfny-2-Epupebtdt Beta Globulins PEP Interpretation Cholesterol LDL Cholesterol Direct Vitamin B12 Urine WBC (Auto) Urine Creatinine Crossmatch 04/18/16 04/18/16 04/18/16 05:01 05:20 05:20 WBC 17.6 H RBC 3.44 L Hgb 9.1 L Hct 27.8 L MCV 81 L MCH 26 L MCHC RDW 15.5 H Plt Count Lymph % (Auto) 2.7 L [place] % (Auto) 8.3 H Lymph # 0.5 L [place] # 1.5 H Baso # Seg Neutrophils % 88.4 H Seg Neuts % (Manual) Lymphocytes % (Manual) Monocytes % (Manual) Seg Neutrophils # 15.6 H Seg Neutrophils # Man Lymphocytes # (Manual) Monocytes # (Manual) Basophils # (Manual) Percent Retic PT 17.4 H INR 1.43 H APTT Heparin Anti-Xa Level POC ABG pH 7.528 H POC ABG pCO2 27.9 L POC ABG pO2 Sodium Potassium Chloride Carbon Dioxide BUN Creatinine Glucose POC Glucose Calcium Phosphorus Iron TIBC Lactate Dehydrogenase Total Creatine Kinase NT-Pro-B Natriuret Pep Total Protein Albumin Wexxw-5-Lwzqytvvo Htrtf-6-Qkxiyzfsd Beta Globulins PEP Interpretation Cholesterol LDL Cholesterol Direct Vitamin B12 Urine WBC (Auto) Urine Creatinine Crossmatch 04/18/16 04/18/16 04/18/16 05:20 05:31 06:50 WBC RBC Hgb Hct MCV MCH MCHC RDW Plt Count Lymph % (Auto) [place] % (Auto) Lymph # [place] # Baso # Seg Neutrophils % Seg Neuts % (Manual) Lymphocytes % (Manual) Monocytes % (Manual) Seg Neutrophils # Seg Neutrophils # Man Lymphocytes # (Manual) Monocytes # (Manual) Basophils # (Manual) Percent Retic PT INR APTT Heparin Anti-Xa Level POC ABG pH POC ABG pCO2 POC ABG pO2 Sodium Potassium 3.4 L Chloride Carbon Dioxide 21 L BUN 22 H Creatinine Glucose POC Glucose 61 L 124 H Calcium 8.0 L Phosphorus Iron TIBC Lactate Dehydrogenase Total Creatine Kinase NT-Pro-B Natriuret Pep Total Protein Albumin Zstmb-7-Ctlppgopd Rcmwz-7-Nywyqjkid Beta Globulins PEP Interpretation Cholesterol LDL Cholesterol Direct Vitamin B12 Urine WBC (Auto) Urine Creatinine Crossmatch 04/18/16 04/18/16 04/19/16 17:42 22:40 00:31 WBC RBC Hgb Hct MCV MCH MCHC RDW Plt Count Lymph % (Auto) [place] % (Auto) Lymph # [place] # Baso # Seg Neutrophils % Seg Neuts % (Manual) Lymphocytes % (Manual) Monocytes % (Manual) Seg Neutrophils # Seg Neutrophils # Man Lymphocytes # (Manual) Monocytes # (Manual) Basophils # (Manual) Percent Retic PT INR APTT Heparin Anti-Xa Level < 0.10 L POC ABG pH POC ABG pCO2 POC ABG pO2 Sodium Potassium Chloride Carbon Dioxide BUN Creatinine Glucose POC Glucose 159 H 134 H Calcium Phosphorus Iron TIBC Lactate Dehydrogenase Total Creatine Kinase NT-Pro-B Natriuret Pep Total Protein Albumin Rtrdn-6-Ibzhlpzhz Qhplo-8-Hslhvyjbk Beta Globulins PEP Interpretation Cholesterol LDL Cholesterol Direct Vitamin B12 Urine WBC (Auto) Urine Creatinine Crossmatch 04/19/16 04/19/16 04/19/16 04:18 04:18 04:25 WBC 19.0 H RBC 3.58 L Hgb 9.3 L Hct 28.8 L MCV 80 L MCH 26 L MCHC RDW 15.5 H Plt Count Lymph % (Auto) 2.8 L [place] % (Auto) 7.4 H Lymph # 0.5 L [place] # 1.4 H Baso # Seg Neutrophils % 89.4 H Seg Neuts % (Manual) Lymphocytes % (Manual) Monocytes % (Manual) Seg Neutrophils # 17.0 H Seg Neutrophils # Man Lymphocytes # (Manual) Monocytes # (Manual) Basophils # (Manual) Percent Retic PT INR APTT Heparin Anti-Xa Level POC ABG pH 7.527 H POC ABG pCO2 27.1 L POC ABG pO2 Sodium Potassium Chloride Carbon Dioxide BUN 22 H Creatinine Glucose 215 H POC Glucose Calcium 8.0 L Phosphorus Iron TIBC Lactate Dehydrogenase Total Creatine Kinase NT-Pro-B Natriuret Pep Total Protein Albumin Opyxz-4-Wsyweufbm Nwuru-8-Ntilgbyou Beta Globulins PEP Interpretation Cholesterol LDL Cholesterol Direct Vitamin B12 Urine WBC (Auto) Urine Creatinine Crossmatch 04/19/16 04/19/16 04/19/16 05:45 08:10 14:08 WBC RBC Hgb Hct MCV MCH MCHC RDW Plt Count Lymph % (Auto) [place] % (Auto) Lymph # [place] # Baso # Seg Neutrophils % Seg Neuts % (Manual) Lymphocytes % (Manual) Monocytes % (Manual) Seg Neutrophils # Seg Neutrophils # Man Lymphocytes # (Manual) Monocytes # (Manual) Basophils # (Manual) Percent Retic PT 22.1 H INR 1.93 H APTT Heparin Anti-Xa Level 0.17 L POC ABG pH POC ABG pCO2 POC ABG pO2 Sodium Potassium Chloride Carbon Dioxide BUN Creatinine Glucose POC Glucose 196 H 318 H Calcium Phosphorus Iron TIBC Lactate Dehydrogenase Total Creatine Kinase NT-Pro-B Natriuret Pep Total Protein Albumin Hanbh-4-Ztfepvnfa Sjabs-4-Pilydkedy Beta Globulins PEP Interpretation Cholesterol LDL Cholesterol Direct Vitamin B12 Urine WBC (Auto) Urine Creatinine Crossmatch 04/19/16 04/20/16 04/20/16 17:27 03:55 03:55 WBC 18.5 H RBC 3.19 L Hgb 8.4 L Hct 25.7 L MCV 80 L MCH 26 L MCHC RDW 15.9 H Plt Count Lymph % (Auto) 4.3 L [place] % (Auto) 10.1 H Lymph # 0.8 L [place] # 1.9 H Baso # Seg Neutrophils % 85.2 H Seg Neuts % (Manual) Lymphocytes % (Manual) Monocytes % (Manual) Seg Neutrophils # 15.8 H Seg Neutrophils # Man Lymphocytes # (Manual) Monocytes # (Manual) Basophils # (Manual) Percent Retic PT 22.0 H INR 1.92 H APTT Heparin Anti-Xa Level 0.14 L POC ABG pH POC ABG pCO2 POC ABG pO2 Sodium Potassium Chloride Carbon Dioxide BUN Creatinine Glucose POC Glucose 230 H Calcium Phosphorus Iron TIBC Lactate Dehydrogenase Total Creatine Kinase NT-Pro-B Natriuret Pep Total Protein Albumin Cysdz-2-Lrcptppls Tdagc-5-Bginhilqv Beta Globulins PEP Interpretation Cholesterol LDL Cholesterol Direct Vitamin B12 Urine WBC (Auto) Urine Creatinine Crossmatch 04/20/16 04/20/16 04/20/16 03:55 04:16 05:52 WBC RBC Hgb Hct MCV MCH MCHC RDW Plt Count Lymph % (Auto) [place] % (Auto) Lymph # [place] # Baso # Seg Neutrophils % Seg Neuts % (Manual) Lymphocytes % (Manual) Monocytes % (Manual) Seg Neutrophils # Seg Neutrophils # Man Lymphocytes # (Manual) Monocytes # (Manual) Basophils # (Manual) Percent Retic PT INR APTT Heparin Anti-Xa Level POC ABG pH 7.474 H POC ABG pCO2 26.5 L POC ABG pO2 Sodium Potassium Chloride Carbon Dioxide 18 L BUN 38 H Creatinine 2.7 H D Glucose 159 H POC Glucose 214 H Calcium 8.0 L Phosphorus Iron TIBC Lactate Dehydrogenase Total Creatine Kinase NT-Pro-B Natriuret Pep Total Protein Albumin Zjwkw-7-Srefjzzaj Zcqyv-2-Gihjipzcw Beta Globulins PEP Interpretation Cholesterol LDL Cholesterol Direct Vitamin B12 Urine WBC (Auto) Urine Creatinine Crossmatch 04/20/16 04/20/16 04/20/16 10:32 11:27 11:50 WBC RBC Hgb Hct MCV MCH MCHC RDW Plt Count Lymph % (Auto) [place] % (Auto) Lymph # [place] # Baso # Seg Neutrophils % Seg Neuts % (Manual) Lymphocytes % (Manual) Monocytes % (Manual) Seg Neutrophils # Seg Neutrophils # Man Lymphocytes # (Manual) Monocytes # (Manual) Basophils # (Manual) Percent Retic PT INR APTT Heparin Anti-Xa Level POC ABG pH POC ABG pCO2 POC ABG pO2 Sodium Potassium Chloride Carbon Dioxide 20 L BUN 45 H Creatinine 3.0 H Glucose 215 H POC Glucose 248 H Calcium 8.0 L Phosphorus Iron TIBC Lactate Dehydrogenase Total Creatine Kinase NT-Pro-B Natriuret Pep Total Protein Albumin Acedj-1-Sgyvkgtmv Daqqd-7-Uronkhavu Beta Globulins PEP Interpretation Cholesterol LDL Cholesterol Direct Vitamin B12 Urine WBC (Auto) Urine Creatinine 85.5 H Crossmatch 04/20/16 04/21/16 04/21/16 16:59 00:13 04:29 WBC RBC Hgb Hct MCV MCH MCHC RDW Plt Count Lymph % (Auto) [place] % (Auto) Lymph # [place] # Baso # Seg Neutrophils % Seg Neuts % (Manual) Lymphocytes % (Manual) Monocytes % (Manual) Seg Neutrophils # Seg Neutrophils # Man Lymphocytes # (Manual) Monocytes # (Manual) Basophils # (Manual) Percent Retic PT 18.1 H INR 1.50 H APTT Heparin Anti-Xa Level 0.10 L POC ABG pH POC ABG pCO2 POC ABG pO2 Sodium Potassium Chloride Carbon Dioxide BUN Creatinine Glucose POC Glucose 312 H 287 H Calcium Phosphorus Iron TIBC Lactate Dehydrogenase Total Creatine Kinase NT-Pro-B Natriuret Pep Total Protein Albumin Phbab-0-Mbmmgcaqm Ahsbf-2-Nqcafhqvo Beta Globulins PEP Interpretation Cholesterol LDL Cholesterol Direct Vitamin B12 Urine WBC (Auto) Urine Creatinine Crossmatch 04/21/16 04/21/16 04/21/16 04:29 04:29 04:55 WBC 15.4 H RBC 3.24 L Hgb 8.4 L Hct 25.6 L MCV 79 L MCH 26 L MCHC RDW 16.1 H Plt Count Lymph % (Auto) 6.8 L [place] % (Auto) 12.9 H Lymph # 1.0 L [place] # 2.0 H Baso # Seg Neutrophils % 79.8 H Seg Neuts % (Manual) Lymphocytes % (Manual) Monocytes % (Manual) Seg Neutrophils # 12.3 H Seg Neutrophils # Man Lymphocytes # (Manual) Monocytes # (Manual) Basophils # (Manual) Percent Retic PT INR APTT Heparin Anti-Xa Level POC ABG pH 7.512 H POC ABG pCO2 25.4 L POC ABG pO2 Sodium 135 L Potassium Chloride Carbon Dioxide 18 L BUN 57 H Creatinine 3.9 H Glucose 202 H POC Glucose Calcium 8.0 L Phosphorus Iron TIBC Lactate Dehydrogenase Total Creatine Kinase NT-Pro-B Natriuret Pep Total Protein Albumin Dbspi-1-Zkzxvnhhn Dfofi-4-Cclvoyluq Beta Globulins PEP Interpretation Cholesterol LDL Cholesterol Direct Vitamin B12 Urine WBC (Auto) Urine Creatinine Crossmatch 04/21/16 04/21/16 04/21/16 05:20 12:08 12:16 WBC RBC Hgb Hct MCV MCH MCHC RDW Plt Count Lymph % (Auto) [place] % (Auto) Lymph # [place] # Baso # Seg Neutrophils % Seg Neuts % (Manual) Lymphocytes % (Manual) Monocytes % (Manual) Seg Neutrophils # Seg Neutrophils # Man Lymphocytes # (Manual) Monocytes # (Manual) Basophils # (Manual) Percent Retic PT INR APTT Heparin Anti-Xa Level 0.16 L POC ABG pH POC ABG pCO2 POC ABG pO2 Sodium Potassium Chloride Carbon Dioxide BUN Creatinine Glucose POC Glucose 203 H 221 H Calcium Phosphorus Iron TIBC Lactate Dehydrogenase Total Creatine Kinase NT-Pro-B Natriuret Pep Total Protein Albumin Iouik-0-Epmzotiis Uirha-2-Twhqdaafi Beta Globulins PEP Interpretation Cholesterol LDL Cholesterol Direct Vitamin B12 Urine WBC (Auto) Urine Creatinine Crossmatch 04/21/16 04/22/16 04/22/16 17:22 05:01 05:20 WBC RBC Hgb Hct MCV MCH MCHC RDW Plt Count Lymph % (Auto) [place] % (Auto) Lymph # [place] # Baso # Seg Neutrophils % Seg Neuts % (Manual) Lymphocytes % (Manual) Monocytes % (Manual) Seg Neutrophils # Seg Neutrophils # Man Lymphocytes # (Manual) Monocytes # (Manual) Basophils # (Manual) Percent Retic PT 17.5 H INR 1.44 H APTT Heparin Anti-Xa Level POC ABG pH 7.460 H POC ABG pCO2 27.9 L POC ABG pO2 Sodium Potassium Chloride Carbon Dioxide BUN Creatinine Glucose POC Glucose 189 H Calcium Phosphorus Iron TIBC Lactate Dehydrogenase Total Creatine Kinase NT-Pro-B Natriuret Pep Total Protein Albumin Tygnd-1-Wufdclyin Aauan-0-Graronmud Beta Globulins PEP Interpretation Cholesterol LDL Cholesterol Direct Vitamin B12 Urine WBC (Auto) Urine Creatinine Crossmatch 04/22/16 04/22/16 04/22/16 05:43 06:40 08:08 WBC RBC Hgb Hct MCV MCH MCHC RDW Plt Count Lymph % (Auto) [place] % (Auto) Lymph # [place] # Baso # Seg Neutrophils % Seg Neuts % (Manual) Lymphocytes % (Manual) Monocytes % (Manual) Seg Neutrophils # Seg Neutrophils # Man Lymphocytes # (Manual) Monocytes # (Manual) Basophils # (Manual) Percent Retic PT INR APTT Heparin Anti-Xa Level POC ABG pH POC ABG pCO2 POC ABG pO2 Sodium Potassium Chloride Carbon Dioxide BUN Creatinine Glucose POC Glucose 56 L 136 H 134 H Calcium Phosphorus Iron TIBC Lactate Dehydrogenase Total Creatine Kinase NT-Pro-B Natriuret Pep Total Protein Albumin Ezfsh-3-Rurbysuot Ahjan-0-Mlvksotoj Beta Globulins PEP Interpretation Cholesterol LDL Cholesterol Direct Vitamin B12 Urine WBC (Auto) Urine Creatinine Crossmatch 04/22/16 04/22/16 04/22/16 11:18 12:10 18:17 WBC RBC Hgb Hct MCV MCH MCHC RDW Plt Count Lymph % (Auto) [place] % (Auto) Lymph # [place] # Baso # Seg Neutrophils % Seg Neuts % (Manual) Lymphocytes % (Manual) Monocytes % (Manual) Seg Neutrophils # Seg Neutrophils # Man Lymphocytes # (Manual) Monocytes # (Manual) Basophils # (Manual) Percent Retic PT INR APTT Heparin Anti-Xa Level 0.12 L POC ABG pH POC ABG pCO2 POC ABG pO2 Sodium Potassium Chloride Carbon Dioxide BUN Creatinine Glucose POC Glucose 142 H 227 H Calcium Phosphorus Iron TIBC Lactate Dehydrogenase Total Creatine Kinase NT-Pro-B Natriuret Pep Total Protein Albumin Sewbj-1-Siulzzzps Qgvpz-7-Jcpjnuzxi Beta Globulins PEP Interpretation Cholesterol LDL Cholesterol Direct Vitamin B12 Urine WBC (Auto) Urine Creatinine Crossmatch 04/22/16 04/22/16 04/23/16 22:28 23:47 04:49 WBC RBC Hgb Hct MCV MCH MCHC RDW Plt Count Lymph % (Auto) [place] % (Auto) Lymph # [place] # Baso # Seg Neutrophils % Seg Neuts % (Manual) Lymphocytes % (Manual) Monocytes % (Manual) Seg Neutrophils # Seg Neutrophils # Man Lymphocytes # (Manual) Monocytes # (Manual) Basophils # (Manual) Percent Retic PT INR APTT Heparin Anti-Xa Level 0.16 L POC ABG pH POC ABG pCO2 32.6 L POC ABG pO2 122 H Sodium Potassium Chloride Carbon Dioxide BUN Creatinine Glucose POC Glucose 266 H Calcium Phosphorus Iron TIBC Lactate Dehydrogenase Total Creatine Kinase NT-Pro-B Natriuret Pep Total Protein Albumin Buept-1-Xbpcwwdcd Wcpdj-9-Tlltffsiv Beta Globulins PEP Interpretation Cholesterol LDL Cholesterol Direct Vitamin B12 Urine WBC (Auto) Urine Creatinine Crossmatch 04/23/16 04/23/16 04/23/16 05:41 08:05 08:34 WBC RBC Hgb Hct MCV MCH MCHC RDW Plt Count Lymph % (Auto) [place] % (Auto) Lymph # [place] # Baso # Seg Neutrophils % Seg Neuts % (Manual) Lymphocytes % (Manual) Monocytes % (Manual) Seg Neutrophils # Seg Neutrophils # Man Lymphocytes # (Manual) Monocytes # (Manual) Basophils # (Manual) Percent Retic PT INR APTT Heparin Anti-Xa Level POC ABG pH POC ABG pCO2 POC ABG pO2 Sodium Potassium Chloride 109.5 H Carbon Dioxide 21 L BUN 23 H Creatinine Glucose 227 H POC Glucose 227 H 224 H Calcium 8.2 L Phosphorus Iron TIBC Lactate Dehydrogenase Total Creatine Kinase NT-Pro-B Natriuret Pep Total Protein Albumin Mfzer-0-Pgrvvriep Inbuz-3-Hctslcdvm Beta Globulins PEP Interpretation Cholesterol LDL Cholesterol Direct Vitamin B12 Urine WBC (Auto) Urine Creatinine Crossmatch 04/23/16 04/23/16 04/23/16 10:45 11:37 22:49 WBC RBC Hgb Hct MCV MCH MCHC RDW Plt Count Lymph % (Auto) [place] % (Auto) Lymph # [place] # Baso # Seg Neutrophils % Seg Neuts % (Manual) Lymphocytes % (Manual) Monocytes % (Manual) Seg Neutrophils # Seg Neutrophils # Man Lymphocytes # (Manual) Monocytes # (Manual) Basophils # (Manual) Percent Retic PT 15.9 H INR 1.28 H APTT Heparin Anti-Xa Level 0.12 L POC ABG pH POC ABG pCO2 POC ABG pO2 Sodium Potassium Chloride Carbon Dioxide BUN Creatinine Glucose POC Glucose 256 H Calcium Phosphorus Iron TIBC Lactate Dehydrogenase Total Creatine Kinase NT-Pro-B Natriuret Pep Total Protein Albumin Izwqx-2-Bfzxoseib Cuozm-4-Vvswejcjl Beta Globulins PEP Interpretation Cholesterol LDL Cholesterol Direct Vitamin B12 Urine WBC (Auto) Urine Creatinine Crossmatch 04/23/16 04/24/16 04/24/16 23:59 05:29 06:03 WBC RBC Hgb Hct MCV MCH MCHC RDW Plt Count Lymph % (Auto) [place] % (Auto) Lymph # [place] # Baso # Seg Neutrophils % Seg Neuts % (Manual) Lymphocytes % (Manual) Monocytes % (Manual) Seg Neutrophils # Seg Neutrophils # Man Lymphocytes # (Manual) Monocytes # (Manual) Basophils # (Manual) Percent Retic PT INR APTT Heparin Anti-Xa Level POC ABG pH 7.464 H POC ABG pCO2 32.4 L POC ABG pO2 115 H Sodium Potassium Chloride Carbon Dioxide BUN Creatinine Glucose POC Glucose 176 H 256 H Calcium Phosphorus Iron TIBC Lactate Dehydrogenase Total Creatine Kinase NT-Pro-B Natriuret Pep Total Protein Albumin Seccq-7-Bhaznnchn Tbuqs-0-Yqlzuikbe Beta Globulins PEP Interpretation Cholesterol LDL Cholesterol Direct Vitamin B12 Urine WBC (Auto) Urine Creatinine Crossmatch 04/24/16 04/24/16 04/24/16 07:59 12:10 17:17 WBC RBC Hgb Hct MCV MCH MCHC RDW Plt Count Lymph % (Auto) [place] % (Auto) Lymph # [place] # Baso # Seg Neutrophils % Seg Neuts % (Manual) Lymphocytes % (Manual) Monocytes % (Manual) Seg Neutrophils # Seg Neutrophils # Man Lymphocytes # (Manual) Monocytes # (Manual) Basophils # (Manual) Percent Retic PT INR APTT Heparin Anti-Xa Level 0.18 L POC ABG pH POC ABG pCO2 POC ABG pO2 Sodium Potassium Chloride Carbon Dioxide BUN Creatinine Glucose POC Glucose 304 H 325 H Calcium Phosphorus Iron TIBC Lactate Dehydrogenase Total Creatine Kinase NT-Pro-B Natriuret Pep Total Protein Albumin Xfsuv-3-Slqivepvv Auxrs-5-Bcoacmfgb Beta Globulins PEP Interpretation Cholesterol LDL Cholesterol Direct Vitamin B12 Urine WBC (Auto) Urine Creatinine Crossmatch 04/25/16 04/25/16 04/25/16 00:52 06:40 06:44 WBC RBC Hgb Hct MCV MCH MCHC RDW Plt Count Lymph % (Auto) [place] % (Auto) Lymph # [place] # Baso # Seg Neutrophils % Seg Neuts % (Manual) Lymphocytes % (Manual) Monocytes % (Manual) Seg Neutrophils # Seg Neutrophils # Man Lymphocytes # (Manual) Monocytes # (Manual) Basophils # (Manual) Percent Retic PT INR APTT Heparin Anti-Xa Level 0.11 L POC ABG pH POC ABG pCO2 POC ABG pO2 Sodium Potassium Chloride Carbon Dioxide BUN Creatinine Glucose POC Glucose 212 H 184 H Calcium Phosphorus Iron TIBC Lactate Dehydrogenase Total Creatine Kinase NT-Pro-B Natriuret Pep Total Protein Albumin Szeug-7-Nxvoviqxe Aaske-9-Zgkcjsxfu Beta Globulins PEP Interpretation Cholesterol LDL Cholesterol Direct Vitamin B12 Urine WBC (Auto) Urine Creatinine Crossmatch 04/25/16 04/25/16 04/25/16 11:40 13:26 17:27 WBC RBC Hgb Hct MCV MCH MCHC RDW Plt Count Lymph % (Auto) [place] % (Auto) Lymph # [place] # Baso # Seg Neutrophils % Seg Neuts % (Manual) Lymphocytes % (Manual) Monocytes % (Manual) Seg Neutrophils # Seg Neutrophils # Man Lymphocytes # (Manual) Monocytes # (Manual) Basophils # (Manual) Percent Retic PT INR APTT Heparin Anti-Xa Level 0.21 L POC ABG pH POC ABG pCO2 POC ABG pO2 Sodium Potassium Chloride Carbon Dioxide BUN Creatinine Glucose POC Glucose 206 H 204 H Calcium Phosphorus Iron TIBC Lactate Dehydrogenase Total Creatine Kinase NT-Pro-B Natriuret Pep Total Protein Albumin Qjexe-6-Rxckurnbq Yamje-0-Zgkxftjap Beta Globulins PEP Interpretation Cholesterol LDL Cholesterol Direct Vitamin B12 Urine WBC (Auto) Urine Creatinine Crossmatch 04/25/16 04/26/16 04/26/16 23:46 06:31 11:51 WBC RBC Hgb Hct MCV MCH MCHC RDW Plt Count Lymph % (Auto) [place] % (Auto) Lymph # [place] # Baso # Seg Neutrophils % Seg Neuts % (Manual) Lymphocytes % (Manual) Monocytes % (Manual) Seg Neutrophils # Seg Neutrophils # Man Lymphocytes # (Manual) Monocytes # (Manual) Basophils # (Manual) Percent Retic PT INR APTT Heparin Anti-Xa Level POC ABG pH POC ABG pCO2 POC ABG pO2 Sodium Potassium Chloride Carbon Dioxide BUN Creatinine Glucose POC Glucose 162 H 148 H 178 H Calcium Phosphorus Iron TIBC Lactate Dehydrogenase Total Creatine Kinase NT-Pro-B Natriuret Pep Total Protein Albumin Oxjbl-1-Egqxvqbjn Sqwsn-0-Bagocnsky Beta Globulins PEP Interpretation Cholesterol LDL Cholesterol Direct Vitamin B12 Urine WBC (Auto) Urine Creatinine Crossmatch 04/26/16 04/26/16 04/26/16 12:17 16:16 18:14 WBC RBC Hgb Hct MCV MCH MCHC RDW Plt Count Lymph % (Auto) [place] % (Auto) Lymph # [place] # Baso # Seg Neutrophils % Seg Neuts % (Manual) Lymphocytes % (Manual) Monocytes % (Manual) Seg Neutrophils # Seg Neutrophils # Man Lymphocytes # (Manual) Monocytes # (Manual) Basophils # (Manual) Percent Retic PT INR APTT Heparin Anti-Xa Level POC ABG pH 7.513 H POC ABG pCO2 POC ABG pO2 76 L Sodium Potassium Chloride Carbon Dioxide BUN Creatinine Glucose POC Glucose 186 H 172 H Calcium Phosphorus Iron TIBC Lactate Dehydrogenase Total Creatine Kinase NT-Pro-B Natriuret Pep Total Protein Albumin Fkovu-9-Rxvudmctx Kcmzr-9-Xdbjeomeq Beta Globulins PEP Interpretation Cholesterol LDL Cholesterol Direct Vitamin B12 Urine WBC (Auto) Urine Creatinine Crossmatch 04/26/16 04/26/16 04/27/16 19:27 23:28 04:21 WBC 13.1 H RBC 2.99 L Hgb 7.8 L Hct 24.0 L MCV 81 L MCH 26 L MCHC RDW 16.7 H Plt Count 486 H Lymph % (Auto) 12.5 L [place] % (Auto) 7.9 H Lymph # [place] # 1.0 H Baso # Seg Neutrophils % 77.5 H Seg Neuts % (Manual) Lymphocytes % (Manual) Monocytes % (Manual) Seg Neutrophils # 10.2 H Seg Neutrophils # Man Lymphocytes # (Manual) Monocytes # (Manual) Basophils # (Manual) Percent Retic PT INR APTT Heparin Anti-Xa Level 0.22 L POC ABG pH POC ABG pCO2 POC ABG pO2 Sodium Potassium Chloride Carbon Dioxide BUN Creatinine Glucose POC Glucose 141 H Calcium Phosphorus Iron TIBC Lactate Dehydrogenase Total Creatine Kinase NT-Pro-B Natriuret Pep Total Protein Albumin Pafai-7-Wydxfnmyu Vfvso-2-Vaxgfktxt Beta Globulins PEP Interpretation Cholesterol LDL Cholesterol Direct Vitamin B12 Urine WBC (Auto) Urine Creatinine Crossmatch 04/27/16 04/27/16 04/27/16 04:21 05:46 11:04 WBC RBC Hgb Hct MCV MCH MCHC RDW Plt Count Lymph % (Auto) [place] % (Auto) Lymph # [place] # Baso # Seg Neutrophils % Seg Neuts % (Manual) Lymphocytes % (Manual) Monocytes % (Manual) Seg Neutrophils # Seg Neutrophils # Man Lymphocytes # (Manual) Monocytes # (Manual) Basophils # (Manual) Percent Retic PT INR APTT Heparin Anti-Xa Level POC ABG pH 7.489 H POC ABG pCO2 POC ABG pO2 71 L Sodium Potassium Chloride Carbon Dioxide BUN Creatinine 0.6 L Glucose 187 H POC Glucose 192 H Calcium 8.0 L Phosphorus Iron TIBC Lactate Dehydrogenase Total Creatine Kinase NT-Pro-B Natriuret Pep Total Protein 6.0 L Albumin 2.0 L Nlulk-8-Zytuqiwuw Ulzis-6-Hneyitdkd Beta Globulins PEP Interpretation Cholesterol LDL Cholesterol Direct Vitamin B12 Urine WBC (Auto) Urine Creatinine Crossmatch 04/27/16 04/27/16 04/27/16 14:12 21:58 23:38 WBC RBC Hgb Hct MCV MCH MCHC RDW Plt Count Lymph % (Auto) [place] % (Auto) Lymph # [place] # Baso # Seg Neutrophils % Seg Neuts % (Manual) Lymphocytes % (Manual) Monocytes % (Manual) Seg Neutrophils # Seg Neutrophils # Man Lymphocytes # (Manual) Monocytes # (Manual) Basophils # (Manual) Percent Retic PT INR APTT Heparin Anti-Xa Level 0.24 L POC ABG pH POC ABG pCO2 POC ABG pO2 Sodium Potassium Chloride Carbon Dioxide BUN Creatinine Glucose POC Glucose 216 H 181 H Calcium Phosphorus Iron TIBC Lactate Dehydrogenase Total Creatine Kinase NT-Pro-B Natriuret Pep Total Protein Albumin Vognp-8-Zmfjgmggo Tyvvu-4-Kliioucqr Beta Globulins PEP Interpretation Cholesterol LDL Cholesterol Direct Vitamin B12 Urine WBC (Auto) Urine Creatinine Crossmatch 04/28/16 04/28/16 04/28/16 04:28 05:52 11:31 WBC RBC Hgb Hct MCV MCH MCHC RDW Plt Count Lymph % (Auto) [place] % (Auto) Lymph # [place] # Baso # Seg Neutrophils % Seg Neuts % (Manual) Lymphocytes % (Manual) Monocytes % (Manual) Seg Neutrophils # Seg Neutrophils # Man Lymphocytes # (Manual) Monocytes # (Manual) Basophils # (Manual) Percent Retic PT INR APTT Heparin Anti-Xa Level POC ABG pH 7.524 H POC ABG pCO2 POC ABG pO2 Sodium Potassium Chloride Carbon Dioxide BUN Creatinine Glucose POC Glucose 254 H 280 H Calcium Phosphorus Iron TIBC Lactate Dehydrogenase Total Creatine Kinase NT-Pro-B Natriuret Pep Total Protein Albumin Rhdzy-5-Wahdbhdgi Fvnvr-0-Otkfzcxff Beta Globulins PEP Interpretation Cholesterol LDL Cholesterol Direct Vitamin B12 Urine WBC (Auto) Urine Creatinine Crossmatch 04/28/16 04/28/16 04/29/16 17:30 19:52 00:47 WBC RBC Hgb Hct MCV MCH MCHC RDW Plt Count Lymph % (Auto) [place] % (Auto) Lymph # [place] # Baso # Seg Neutrophils % Seg Neuts % (Manual) Lymphocytes % (Manual) Monocytes % (Manual) Seg Neutrophils # Seg Neutrophils # Man Lymphocytes # (Manual) Monocytes # (Manual) Basophils # (Manual) Percent Retic PT INR APTT Heparin Anti-Xa Level 0.15 L POC ABG pH POC ABG pCO2 POC ABG pO2 Sodium Potassium Chloride Carbon Dioxide BUN Creatinine Glucose POC Glucose 208 H 265 H Calcium Phosphorus Iron TIBC Lactate Dehydrogenase Total Creatine Kinase NT-Pro-B Natriuret Pep Total Protein Albumin Fmjhg-5-Szsqwuyhy Amqfp-5-Atdjlrglm Beta Globulins PEP Interpretation Cholesterol LDL Cholesterol Direct Vitamin B12 Urine WBC (Auto) Urine Creatinine Crossmatch 04/29/16 04/29/16 04/29/16 04:00 04:00 04:29 WBC 13.4 H RBC 2.56 L Hgb 6.9 L Hct 20.6 L MCV 81 L MCH 27 L MCHC RDW 16.2 H Plt Count 513 H Lymph % (Auto) 10.0 L [place] % (Auto) 12.0 H Lymph # [place] # 1.6 H Baso # Seg Neutrophils % 77.1 H Seg Neuts % (Manual) Lymphocytes % (Manual) Monocytes % (Manual) Seg Neutrophils # 10.4 H Seg Neutrophils # Man Lymphocytes # (Manual) Monocytes # (Manual) Basophils # (Manual) Percent Retic PT INR APTT Heparin Anti-Xa Level POC ABG pH 7.501 H POC ABG pCO2 POC ABG pO2 76 L Sodium Potassium Chloride Carbon Dioxide BUN 27 H Creatinine Glucose 204 H POC Glucose Calcium 8.1 L Phosphorus Iron TIBC Lactate Dehydrogenase Total Creatine Kinase NT-Pro-B Natriuret Pep Total Protein Albumin Lrbnh-0-Kmspagbpt Qldsn-4-Atjjfyctp Beta Globulins PEP Interpretation Cholesterol LDL Cholesterol Direct Vitamin B12 Urine WBC (Auto) Urine Creatinine Crossmatch 04/29/16 04/29/16 04/29/16 06:03 10:05 10:16 WBC RBC Hgb Hct MCV MCH MCHC RDW Plt Count Lymph % (Auto) [place] % (Auto) Lymph # [place] # Baso # Seg Neutrophils % Seg Neuts % (Manual) Lymphocytes % (Manual) Monocytes % (Manual) Seg Neutrophils # Seg Neutrophils # Man Lymphocytes # (Manual) Monocytes # (Manual) Basophils # (Manual) Percent Retic 3.68 H PT INR APTT Heparin Anti-Xa Level POC ABG pH POC ABG pCO2 POC ABG pO2 Sodium Potassium Chloride Carbon Dioxide BUN Creatinine Glucose POC Glucose 192 H Calcium Phosphorus Iron TIBC Lactate Dehydrogenase Total Creatine Kinase NT-Pro-B Natriuret Pep Total Protein Albumin Zxeap-2-Gyunndtqb Atlrd-0-Ggdwtmkfb Beta Globulins PEP Interpretation Cholesterol LDL Cholesterol Direct Vitamin B12 Urine WBC (Auto) Urine Creatinine Crossmatch See Detail 04/29/16 04/29/16 04/29/16 10:16 10:16 11:23 WBC RBC Hgb Hct MCV MCH MCHC RDW Plt Count Lymph % (Auto) [place] % (Auto) Lymph # [place] # Baso # Seg Neutrophils % Seg Neuts % (Manual) Lymphocytes % (Manual) Monocytes % (Manual) Seg Neutrophils # Seg Neutrophils # Man Lymphocytes # (Manual) Monocytes # (Manual) Basophils # (Manual) Percent Retic PT INR APTT Heparin Anti-Xa Level POC ABG pH POC ABG pCO2 POC ABG pO2 Sodium Potassium Chloride Carbon Dioxide BUN Creatinine Glucose POC Glucose 116 H Calcium Phosphorus Iron 10 L TIBC 138 L Lactate Dehydrogenase 204 H Total Creatine Kinase NT-Pro-B Natriuret Pep Total Protein Albumin Gbqqr-1-Irzzpoluo Cwwli-7-Dybsmehtg Beta Globulins PEP Interpretation Cholesterol LDL Cholesterol Direct Vitamin B12 1005 H Urine WBC (Auto) Urine Creatinine Crossmatch 04/29/16 04/29/16 04/30/16 17:34 23:19 03:19 WBC RBC Hgb 9.0 L Hct 26.7 L D MCV MCH MCHC RDW Plt Count Lymph % (Auto) [place] % (Auto) Lymph # [place] # Baso # Seg Neutrophils % Seg Neuts % (Manual) Lymphocytes % (Manual) Monocytes % (Manual) Seg Neutrophils # Seg Neutrophils # Man Lymphocytes # (Manual) Monocytes # (Manual) Basophils # (Manual) Percent Retic PT INR APTT Heparin Anti-Xa Level POC ABG pH POC ABG pCO2 POC ABG pO2 Sodium Potassium Chloride Carbon Dioxide BUN Creatinine Glucose POC Glucose 142 H 242 H Calcium Phosphorus Iron TIBC Lactate Dehydrogenase Total Creatine Kinase NT-Pro-B Natriuret Pep Total Protein Albumin Txviu-6-Ucqbqevoq Gnvor-7-Bakjqlime Beta Globulins PEP Interpretation Cholesterol LDL Cholesterol Direct Vitamin B12 Urine WBC (Auto) Urine Creatinine Crossmatch 04/30/16 04/30/16 04/30/16 04:10 04:10 04:32 WBC 13.8 H RBC 3.54 L Hgb 9.3 L Hct 29.1 L MCV 82 L MCH 26 L MCHC RDW 16.5 H Plt Count 535 H Lymph % (Auto) 7.5 L [place] % (Auto) 13.8 H Lymph # 1.0 L [place] # 1.9 H Baso # Seg Neutrophils % 78.0 H Seg Neuts % (Manual) Lymphocytes % (Manual) Monocytes % (Manual) Seg Neutrophils # 10.7 H Seg Neutrophils # Man Lymphocytes # (Manual) Monocytes # (Manual) Basophils # (Manual) Percent Retic PT INR APTT Heparin Anti-Xa Level POC ABG pH 7.519 H POC ABG pCO2 33.6 L POC ABG pO2 79 L Sodium 146 H Potassium Chloride Carbon Dioxide BUN Creatinine 0.7 L Glucose 242 H POC Glucose Calcium 8.3 L Phosphorus Iron TIBC Lactate Dehydrogenase Total Creatine Kinase NT-Pro-B Natriuret Pep Total Protein Albumin Vgybs-7-Joxrbgrte Aalso-9-Tcetuivoc Beta Globulins PEP Interpretation Cholesterol LDL Cholesterol Direct Vitamin B12 Urine WBC (Auto) Urine Creatinine Crossmatch 04/30/16 04/30/16 04/30/16 05:33 11:23 17:26 WBC RBC Hgb Hct MCV MCH MCHC RDW Plt Count Lymph % (Auto) [place] % (Auto) Lymph # [place] # Baso # Seg Neutrophils % Seg Neuts % (Manual) Lymphocytes % (Manual) Monocytes % (Manual) Seg Neutrophils # Seg Neutrophils # Man Lymphocytes # (Manual) Monocytes # (Manual) Basophils # (Manual) Percent Retic PT INR APTT Heparin Anti-Xa Level POC ABG pH POC ABG pCO2 POC ABG pO2 Sodium Potassium Chloride Carbon Dioxide BUN Creatinine Glucose POC Glucose 242 H 305 H 281 H Calcium Phosphorus Iron TIBC Lactate Dehydrogenase Total Creatine Kinase NT-Pro-B Natriuret Pep Total Protein Albumin Gnqfs-6-Mrgwvhjfh Lamhg-5-Splvftcmi Beta Globulins PEP Interpretation Cholesterol LDL Cholesterol Direct Vitamin B12 Urine WBC (Auto) Urine Creatinine Crossmatch 04/30/16 05/01/16 05/01/16 23:53 04:00 04:00 WBC 15.9 H RBC 2.99 L Hgb 7.9 L Hct 24.4 L MCV 82 L MCH 26 L MCHC RDW 16.9 H Plt Count 481 H Lymph % (Auto) 9.3 L [place] % (Auto) 15.0 H Lymph # [place] # 2.4 H Baso # Seg Neutrophils % 74.9 H Seg Neuts % (Manual) Lymphocytes % (Manual) Monocytes % (Manual) Seg Neutrophils # 11.9 H Seg Neutrophils # Man Lymphocytes # (Manual) Monocytes # (Manual) Basophils # (Manual) Percent Retic PT INR APTT Heparin Anti-Xa Level POC ABG pH POC ABG pCO2 POC ABG pO2 Sodium 147 H Potassium Chloride 107.8 H Carbon Dioxide BUN 22 H Creatinine 0.7 L Glucose 229 H POC Glucose 207 H Calcium 8.2 L Phosphorus Iron TIBC Lactate Dehydrogenase Total Creatine Kinase NT-Pro-B Natriuret Pep Total Protein Albumin Ngqhr-9-Ayyjefczz Wyiuh-4-Zzuywymaw Beta Globulins PEP Interpretation Cholesterol LDL Cholesterol Direct Vitamin B12 Urine WBC (Auto) Urine Creatinine Crossmatch 05/01/16 05/01/16 05/01/16 05:12 07:41 12:33 WBC RBC Hgb Hct MCV MCH MCHC RDW Plt Count Lymph % (Auto) [place] % (Auto) Lymph # [place] # Baso # Seg Neutrophils % Seg Neuts % (Manual) Lymphocytes % (Manual) Monocytes % (Manual) Seg Neutrophils # Seg Neutrophils # Man Lymphocytes # (Manual) Monocytes # (Manual) Basophils # (Manual) Percent Retic PT INR APTT Heparin Anti-Xa Level 0.16 L POC ABG pH POC ABG pCO2 POC ABG pO2 Sodium Potassium Chloride Carbon Dioxide BUN Creatinine Glucose POC Glucose 284 H 186 H Calcium Phosphorus Iron TIBC Lactate Dehydrogenase Total Creatine Kinase NT-Pro-B Natriuret Pep Total Protein Albumin Iyfyb-5-Gogrfnqxr Uhoim-8-Tmcxqxhrc Beta Globulins PEP Interpretation Cholesterol LDL Cholesterol Direct Vitamin B12 Urine WBC (Auto) Urine Creatinine Crossmatch 05/01/16 05/01/16 05/02/16 17:24 23:19 04:48 WBC 17.2 H RBC 3.09 L Hgb 8.1 L Hct 25.5 L MCV 83 L MCH 26 L MCHC RDW 17.3 H Plt Count 507 H Lymph % (Auto) 8.0 L [place] % (Auto) 13.6 H Lymph # [place] # 2.3 H Baso # Seg Neutrophils % 77.5 H Seg Neuts % (Manual) Lymphocytes % (Manual) Monocytes % (Manual) Seg Neutrophils # 13.4 H Seg Neutrophils # Man Lymphocytes # (Manual) Monocytes # (Manual) Basophils # (Manual) Percent Retic PT INR APTT Heparin Anti-Xa Level POC ABG pH POC ABG pCO2 POC ABG pO2 Sodium Potassium Chloride Carbon Dioxide BUN Creatinine Glucose POC Glucose 171 H 132 H Calcium Phosphorus Iron TIBC Lactate Dehydrogenase Total Creatine Kinase NT-Pro-B Natriuret Pep Total Protein Albumin Rbuue-8-Ruvlulvnr Uuzfp-3-Amupmvoak Beta Globulins PEP Interpretation Cholesterol LDL Cholesterol Direct Vitamin B12 Urine WBC (Auto) Urine Creatinine Crossmatch 05/02/16 05/02/16 05/02/16 04:48 04:48 05:42 WBC RBC Hgb Hct MCV MCH MCHC RDW Plt Count Lymph % (Auto) [place] % (Auto) Lymph # [place] # Baso # Seg Neutrophils % Seg Neuts % (Manual) Lymphocytes % (Manual) Monocytes % (Manual) Seg Neutrophils # Seg Neutrophils # Man Lymphocytes # (Manual) Monocytes # (Manual) Basophils # (Manual) Percent Retic PT INR APTT Heparin Anti-Xa Level 0.19 L POC ABG pH POC ABG pCO2 POC ABG pO2 Sodium 149 H Potassium Chloride 109.9 H Carbon Dioxide BUN 24 H Creatinine Glucose 224 H POC Glucose 253 H Calcium 8.2 L Phosphorus Iron TIBC Lactate Dehydrogenase Total Creatine Kinase NT-Pro-B Natriuret Pep Total Protein Albumin Xeruz-0-Qqnimtxbh Diana-1-Gtaxjqpmq Beta Globulins PEP Interpretation Cholesterol LDL Cholesterol Direct Vitamin B12 Urine WBC (Auto) Urine Creatinine Crossmatch 05/02/16 05/02/16 05/02/16 12:01 16:40 23:35 WBC RBC Hgb Hct MCV MCH MCHC RDW Plt Count Lymph % (Auto) [place] % (Auto) Lymph # [place] # Baso # Seg Neutrophils % Seg Neuts % (Manual) Lymphocytes % (Manual) Monocytes % (Manual) Seg Neutrophils # Seg Neutrophils # Man Lymphocytes # (Manual) Monocytes # (Manual) Basophils # (Manual) Percent Retic PT INR APTT Heparin Anti-Xa Level POC ABG pH POC ABG pCO2 POC ABG pO2 Sodium Potassium Chloride Carbon Dioxide BUN Creatinine Glucose POC Glucose 197 H 126 H 303 H Calcium Phosphorus Iron TIBC Lactate Dehydrogenase Total Creatine Kinase NT-Pro-B Natriuret Pep Total Protein Albumin Ihyza-4-Hspznxvts Spkoj-9-Wnwcdoinc Beta Globulins PEP Interpretation Cholesterol LDL Cholesterol Direct Vitamin B12 Urine WBC (Auto) Urine Creatinine Crossmatch 05/03/16 05/03/16 05/03/16 04:31 04:31 04:31 WBC 19.1 H RBC 3.15 L Hgb 8.6 L Hct 25.7 L MCV 82 L MCH MCHC RDW 17.4 H Plt Count 525 H Lymph % (Auto) [place] % (Auto) Lymph # [place] # Baso # Seg Neutrophils % Seg Neuts % (Manual) Lymphocytes % (Manual) 10.0 L Monocytes % (Manual) 13.0 H Seg Neutrophils # Seg Neutrophils # Man 13.2 H Lymphocytes # (Manual) Monocytes # (Manual) 2.5 H Basophils # (Manual) 0.2 H Percent Retic PT INR APTT Heparin Anti-Xa Level 0.16 L POC ABG pH POC ABG pCO2 POC ABG pO2 Sodium 151 H Potassium Chloride 112.9 H Carbon Dioxide BUN 24 H Creatinine 0.7 L Glucose 303 H POC Glucose Calcium Phosphorus Iron TIBC Lactate Dehydrogenase Total Creatine Kinase NT-Pro-B Natriuret Pep Total Protein Albumin Nqwbb-4-Bxlhlpogw Cppkz-1-Jnagqplcu Beta Globulins PEP Interpretation Cholesterol LDL Cholesterol Direct Vitamin B12 Urine WBC (Auto) Urine Creatinine Crossmatch 05/03/16 05/03/16 05/04/16 12:08 18:05 00:11 WBC RBC Hgb Hct MCV MCH MCHC RDW Plt Count Lymph % (Auto) [place] % (Auto) Lymph # [place] # Baso # Seg Neutrophils % Seg Neuts % (Manual) Lymphocytes % (Manual) Monocytes % (Manual) Seg Neutrophils # Seg Neutrophils # Man Lymphocytes # (Manual) Monocytes # (Manual) Basophils # (Manual) Percent Retic PT INR APTT Heparin Anti-Xa Level POC ABG pH POC ABG pCO2 POC ABG pO2 Sodium Potassium Chloride Carbon Dioxide BUN Creatinine Glucose POC Glucose 452 H 370 H 374 H Calcium Phosphorus Iron TIBC Lactate Dehydrogenase Total Creatine Kinase NT-Pro-B Natriuret Pep Total Protein Albumin Enuhd-6-Ekbpxrraw Jhpmd-8-Bhhfaeonh Beta Globulins PEP Interpretation Cholesterol LDL Cholesterol Direct Vitamin B12 Urine WBC (Auto) Urine Creatinine Crossmatch 05/04/16 05/04/16 05/04/16 04:31 04:31 04:31 WBC 19.8 H RBC 2.90 L Hgb 7.8 L Hct 23.8 L MCV 82 L MCH 27 L MCHC RDW 17.9 H Plt Count 504 H Lymph % (Auto) [place] % (Auto) Lymph # [place] # Baso # Seg Neutrophils % Seg Neuts % (Manual) Lymphocytes % (Manual) 11.0 L Monocytes % (Manual) 8.0 H Seg Neutrophils # Seg Neutrophils # Man 13.3 H Lymphocytes # (Manual) Monocytes # (Manual) 1.6 H Basophils # (Manual) Percent Retic PT INR APTT Heparin Anti-Xa Level 0.15 L POC ABG pH POC ABG pCO2 POC ABG pO2 Sodium 146 H Potassium Chloride Carbon Dioxide BUN 30 H Creatinine 0.7 L Glucose 321 H POC Glucose Calcium 8.3 L Phosphorus Iron TIBC Lactate Dehydrogenase Total Creatine Kinase NT-Pro-B Natriuret Pep Total Protein Albumin Adfij-5-Isouiiblh Oboth-9-Uklfkdlcv Beta Globulins PEP Interpretation Cholesterol LDL Cholesterol Direct Vitamin B12 Urine WBC (Auto) Urine Creatinine Crossmatch 05/04/16 05/04/16 05/04/16 10:20 11:57 17:36 WBC RBC Hgb Hct MCV MCH MCHC RDW Plt Count Lymph % (Auto) [place] % (Auto) Lymph # [place] # Baso # Seg Neutrophils % Seg Neuts % (Manual) Lymphocytes % (Manual) Monocytes % (Manual) Seg Neutrophils # Seg Neutrophils # Man Lymphocytes # (Manual) Monocytes # (Manual) Basophils # (Manual) Percent Retic PT INR APTT Heparin Anti-Xa Level POC ABG pH POC ABG pCO2 POC ABG pO2 Sodium Potassium Chloride Carbon Dioxide BUN Creatinine Glucose POC Glucose 303 H 271 H Calcium Phosphorus Iron TIBC Lactate Dehydrogenase Total Creatine Kinase NT-Pro-B Natriuret Pep Total Protein Albumin Bfexi-7-Mkrpvrthc Ylhjy-0-Kmmlvknpc Beta Globulins PEP Interpretation Cholesterol LDL Cholesterol Direct Vitamin B12 Urine WBC (Auto) > 182.0 H Urine Creatinine Crossmatch 05/04/16 05/05/16 05/05/16 23:53 04:13 04:13 WBC 20.9 H RBC 2.92 L Hgb 7.6 L Hct 23.9 L MCV 82 L MCH 26 L MCHC RDW 17.9 H Plt Count 526 H Lymph % (Auto) [place] % (Auto) Lymph # [place] # Baso # Seg Neutrophils % Seg Neuts % (Manual) 93.0 H Lymphocytes % (Manual) 2.0 L Monocytes % (Manual) Seg Neutrophils # Seg Neutrophils # Man 19.4 H Lymphocytes # (Manual) 0.4 L Monocytes # (Manual) Basophils # (Manual) Percent Retic PT INR APTT Heparin Anti-Xa Level POC ABG pH POC ABG pCO2 POC ABG pO2 Sodium 146 H Potassium Chloride Carbon Dioxide BUN 30 H Creatinine 0.7 L Glucose 250 H POC Glucose 235 H Calcium 8.1 L Phosphorus Iron TIBC Lactate Dehydrogenase Total Creatine Kinase NT-Pro-B Natriuret Pep Total Protein Albumin Vrrrw-1-Rxwimhvzm Npurm-8-Uofnckjhx Beta Globulins PEP Interpretation Cholesterol LDL Cholesterol Direct Vitamin B12 Urine WBC (Auto) Urine Creatinine Crossmatch 05/05/16 05/05/16 05/05/16 05:27 07:36 12:06 WBC RBC Hgb Hct MCV MCH MCHC RDW Plt Count Lymph % (Auto) [place] % (Auto) Lymph # [place] # Baso # Seg Neutrophils % Seg Neuts % (Manual) Lymphocytes % (Manual) Monocytes % (Manual) Seg Neutrophils # Seg Neutrophils # Man Lymphocytes # (Manual) Monocytes # (Manual) Basophils # (Manual) Percent Retic PT INR APTT Heparin Anti-Xa Level < 0.10 L POC ABG pH POC ABG pCO2 POC ABG pO2 Sodium Potassium Chloride Carbon Dioxide BUN Creatinine Glucose POC Glucose 287 H 301 H Calcium Phosphorus Iron TIBC Lactate Dehydrogenase Total Creatine Kinase NT-Pro-B Natriuret Pep Total Protein Albumin Rzdfw-5-Tpuchcdbw Funqm-6-Icpwtxbtp Beta Globulins PEP Interpretation Cholesterol LDL Cholesterol Direct Vitamin B12 Urine WBC (Auto) Urine Creatinine Crossmatch 05/05/16 05/05/16 05/06/16 15:58 17:30 00:10 WBC RBC Hgb Hct MCV MCH MCHC RDW Plt Count Lymph % (Auto) [place] % (Auto) Lymph # [place] # Baso # Seg Neutrophils % Seg Neuts % (Manual) Lymphocytes % (Manual) Monocytes % (Manual) Seg Neutrophils # Seg Neutrophils # Man Lymphocytes # (Manual) Monocytes # (Manual) Basophils # (Manual) Percent Retic PT INR APTT Heparin Anti-Xa Level 0.17 L POC ABG pH POC ABG pCO2 POC ABG pO2 Sodium Potassium Chloride Carbon Dioxide BUN Creatinine Glucose POC Glucose 226 H 161 H Calcium Phosphorus Iron TIBC Lactate Dehydrogenase Total Creatine Kinase NT-Pro-B Natriuret Pep Total Protein Albumin Vymrx-1-Vboecjrwx Iuvcy-4-Vxubzjsja Beta Globulins PEP Interpretation Cholesterol LDL Cholesterol Direct Vitamin B12 Urine WBC (Auto) Urine Creatinine Crossmatch 05/06/16 05/06/16 05/06/16 04:23 05:30 05:37 WBC RBC Hgb Hct MCV MCH MCHC RDW Plt Count Lymph % (Auto) [place] % (Auto) Lymph # [place] # Baso # Seg Neutrophils % Seg Neuts % (Manual) Lymphocytes % (Manual) Monocytes % (Manual) Seg Neutrophils # Seg Neutrophils # Man Lymphocytes # (Manual) Monocytes # (Manual) Basophils # (Manual) Percent Retic PT INR APTT Heparin Anti-Xa Level 0.15 L POC ABG pH 7.511 H POC ABG pCO2 POC ABG pO2 Sodium Potassium Chloride Carbon Dioxide BUN Creatinine Glucose POC Glucose 168 H Calcium Phosphorus Iron TIBC Lactate Dehydrogenase Total Creatine Kinase NT-Pro-B Natriuret Pep Total Protein Albumin Ttezo-0-Ltuvpwwly Hkcti-6-Abvlfvclq Beta Globulins PEP Interpretation Cholesterol LDL Cholesterol Direct Vitamin B12 Urine WBC (Auto) Urine Creatinine Crossmatch 05/06/16 05/06/16 05/07/16 12:48 17:22 00:04 WBC RBC Hgb Hct MCV MCH MCHC RDW Plt Count Lymph % (Auto) [place] % (Auto) Lymph # [place] # Baso # Seg Neutrophils % Seg Neuts % (Manual) Lymphocytes % (Manual) Monocytes % (Manual) Seg Neutrophils # Seg Neutrophils # Man Lymphocytes # (Manual) Monocytes # (Manual) Basophils # (Manual) Percent Retic PT INR APTT Heparin Anti-Xa Level POC ABG pH POC ABG pCO2 POC ABG pO2 Sodium Potassium Chloride Carbon Dioxide BUN Creatinine Glucose POC Glucose 206 H 160 H 164 H Calcium Phosphorus Iron TIBC Lactate Dehydrogenase Total Creatine Kinase NT-Pro-B Natriuret Pep Total Protein Albumin Lyndc-8-Uhpcbabzf Bxjhs-3-Bvliytdko Beta Globulins PEP Interpretation Cholesterol LDL Cholesterol Direct Vitamin B12 Urine WBC (Auto) Urine Creatinine Crossmatch 05/07/16 05/07/16 05/07/16 04:02 05:50 11:30 WBC RBC Hgb Hct MCV MCH MCHC RDW Plt Count Lymph % (Auto) [place] % (Auto) Lymph # [place] # Baso # Seg Neutrophils % Seg Neuts % (Manual) Lymphocytes % (Manual) Monocytes % (Manual) Seg Neutrophils # Seg Neutrophils # Man Lymphocytes # (Manual) Monocytes # (Manual) Basophils # (Manual) Percent Retic PT INR APTT Heparin Anti-Xa Level 0.15 L POC ABG pH POC ABG pCO2 POC ABG pO2 Sodium Potassium Chloride Carbon Dioxide BUN Creatinine Glucose POC Glucose 177 H 240 H Calcium Phosphorus Iron TIBC Lactate Dehydrogenase Total Creatine Kinase NT-Pro-B Natriuret Pep Total Protein Albumin Absgi-3-Oiyfqrgob Glrfx-1-Ttzbduoan Beta Globulins PEP Interpretation Cholesterol LDL Cholesterol Direct Vitamin B12 Urine WBC (Auto) Urine Creatinine Crossmatch 05/07/16 05/07/16 05/07/16 12:46 17:57 23:54 WBC 20.8 H RBC 2.86 L Hgb 7.6 L Hct 23.3 L MCV 81 L MCH 26 L MCHC RDW 17.9 H Plt Count 559 H Lymph % (Auto) [place] % (Auto) Lymph # [place] # Baso # Seg Neutrophils % Seg Neuts % (Manual) Lymphocytes % (Manual) Monocytes % (Manual) Seg Neutrophils # Seg Neutrophils # Man Lymphocytes # (Manual) Monocytes # (Manual) Basophils # (Manual) Percent Retic PT INR APTT Heparin Anti-Xa Level POC ABG pH POC ABG pCO2 POC ABG pO2 Sodium Potassium Chloride Carbon Dioxide BUN Creatinine Glucose POC Glucose 279 H 201 H Calcium Phosphorus Iron TIBC Lactate Dehydrogenase Total Creatine Kinase NT-Pro-B Natriuret Pep Total Protein Albumin Hvljz-1-Ghavaorbj Mtika-8-Xcqmnnwri Beta Globulins PEP Interpretation Cholesterol LDL Cholesterol Direct Vitamin B12 Urine WBC (Auto) Urine Creatinine Crossmatch 05/08/16 05/08/16 05/08/16 04:04 05:39 12:09 WBC RBC Hgb Hct MCV MCH MCHC RDW Plt Count Lymph % (Auto) [place] % (Auto) Lymph # [place] # Baso # Seg Neutrophils % Seg Neuts % (Manual) Lymphocytes % (Manual) Monocytes % (Manual) Seg Neutrophils # Seg Neutrophils # Man Lymphocytes # (Manual) Monocytes # (Manual) Basophils # (Manual) Percent Retic PT INR APTT Heparin Anti-Xa Level 0.20 L POC ABG pH POC ABG pCO2 POC ABG pO2 Sodium Potassium Chloride Carbon Dioxide BUN Creatinine Glucose POC Glucose 153 H 188 H Calcium Phosphorus Iron TIBC Lactate Dehydrogenase Total Creatine Kinase NT-Pro-B Natriuret Pep Total Protein Albumin Bffqg-3-Qkndymqjv Uecsv-3-Czrheowoh Beta Globulins PEP Interpretation Cholesterol LDL Cholesterol Direct Vitamin B12 Urine WBC (Auto) Urine Creatinine Crossmatch 05/08/16 05/08/16 05/08/16 17:44 17:49 18:51 WBC RBC Hgb Hct MCV MCH MCHC RDW Plt Count Lymph % (Auto) [place] % (Auto) Lymph # [place] # Baso # Seg Neutrophils % Seg Neuts % (Manual) Lymphocytes % (Manual) Monocytes % (Manual) Seg Neutrophils # Seg Neutrophils # Man Lymphocytes # (Manual) Monocytes # (Manual) Basophils # (Manual) Percent Retic PT INR APTT Heparin Anti-Xa Level POC ABG pH POC ABG pCO2 POC ABG pO2 Sodium Potassium Chloride Carbon Dioxide BUN Creatinine Glucose POC Glucose 56 L 61 L 135 H Calcium Phosphorus Iron TIBC Lactate Dehydrogenase Total Creatine Kinase NT-Pro-B Natriuret Pep Total Protein Albumin Xwtdv-2-Kskvljgft Gebip-0-Eyhusywjq Beta Globulins PEP Interpretation Cholesterol LDL Cholesterol Direct Vitamin B12 Urine WBC (Auto) Urine Creatinine Crossmatch 05/09/16 05/09/16 05/09/16 00:14 04:07 05:18 WBC RBC Hgb Hct MCV MCH MCHC RDW Plt Count Lymph % (Auto) [place] % (Auto) Lymph # [place] # Baso # Seg Neutrophils % Seg Neuts % (Manual) Lymphocytes % (Manual) Monocytes % (Manual) Seg Neutrophils # Seg Neutrophils # Man Lymphocytes # (Manual) Monocytes # (Manual) Basophils # (Manual) Percent Retic PT INR APTT Heparin Anti-Xa Level 0.21 L POC ABG pH POC ABG pCO2 POC ABG pO2 Sodium Potassium Chloride Carbon Dioxide BUN Creatinine Glucose POC Glucose 151 H 215 H Calcium Phosphorus Iron TIBC Lactate Dehydrogenase Total Creatine Kinase NT-Pro-B Natriuret Pep Total Protein Albumin Kukiq-1-Hzfboaugc Pduor-0-Evxghlcml Beta Globulins PEP Interpretation Cholesterol LDL Cholesterol Direct Vitamin B12 Urine WBC (Auto) Urine Creatinine Crossmatch 05/09/16 05/09/16 05/09/16 12:27 16:39 17:30 WBC RBC Hgb 6.4 L Hct 20.2 L MCV MCH MCHC RDW Plt Count Lymph % (Auto) [place] % (Auto) Lymph # [place] # Baso # Seg Neutrophils % Seg Neuts % (Manual) Lymphocytes % (Manual) Monocytes % (Manual) Seg Neutrophils # Seg Neutrophils # Man Lymphocytes # (Manual) Monocytes # (Manual) Basophils # (Manual) Percent Retic PT INR APTT Heparin Anti-Xa Level POC ABG pH POC ABG pCO2 POC ABG pO2 Sodium Potassium Chloride Carbon Dioxide BUN Creatinine Glucose POC Glucose 291 H 220 H Calcium Phosphorus Iron TIBC Lactate Dehydrogenase Total Creatine Kinase NT-Pro-B Natriuret Pep Total Protein Albumin Kikcl-1-Cdguuxpfi Chrzd-4-Dsfvaztaa Beta Globulins PEP Interpretation Cholesterol LDL Cholesterol Direct Vitamin B12 Urine WBC (Auto) Urine Creatinine Crossmatch 05/09/16 05/09/16 05/10/16 19:47 23:57 03:55 WBC 16.9 H RBC 3.20 L Hgb 8.6 L Hct 26.7 L D MCV 83 L MCH 27 L MCHC RDW 17.5 H Plt Count 488 H Lymph % (Auto) [place] % (Auto) Lymph # [place] # Baso # Seg Neutrophils % Seg Neuts % (Manual) 76.0 H Lymphocytes % (Manual) 9.0 L Monocytes % (Manual) 10.0 H Seg Neutrophils # Seg Neutrophils # Man 12.8 H Lymphocytes # (Manual) Monocytes # (Manual) 1.7 H Basophils # (Manual) Percent Retic PT INR APTT Heparin Anti-Xa Level POC ABG pH POC ABG pCO2 POC ABG pO2 Sodium Potassium Chloride Carbon Dioxide BUN Creatinine Glucose POC Glucose 217 H Calcium Phosphorus Iron TIBC Lactate Dehydrogenase Total Creatine Kinase NT-Pro-B Natriuret Pep Total Protein Albumin Stfct-9-Pjvvhhjhs Lajsy-3-Ahmhgkxvy Beta Globulins PEP Interpretation Cholesterol LDL Cholesterol Direct Vitamin B12 Urine WBC (Auto) Urine Creatinine Crossmatch See Detail 05/10/16 05/10/16 05/10/16 05:05 11:49 12:54 WBC RBC Hgb 9.1 L Hct 28.2 L MCV MCH MCHC RDW Plt Count Lymph % (Auto) [place] % (Auto) Lymph # [place] # Baso # Seg Neutrophils % Seg Neuts % (Manual) Lymphocytes % (Manual) Monocytes % (Manual) Seg Neutrophils # Seg Neutrophils # Man Lymphocytes # (Manual) Monocytes # (Manual) Basophils # (Manual) Percent Retic PT INR APTT Heparin Anti-Xa Level POC ABG pH POC ABG pCO2 POC ABG pO2 Sodium Potassium Chloride Carbon Dioxide BUN Creatinine Glucose POC Glucose 182 H 237 H Calcium Phosphorus Iron TIBC Lactate Dehydrogenase Total Creatine Kinase NT-Pro-B Natriuret Pep Total Protein Albumin Rakai-1-Pioznfbop Mpudp-4-Xousfabdb Beta Globulins PEP Interpretation Cholesterol LDL Cholesterol Direct Vitamin B12 Urine WBC (Auto) Urine Creatinine Crossmatch 05/10/16 05/10/16 05/10/16 12:54 17:29 23:07 WBC RBC Hgb Hct MCV MCH MCHC RDW Plt Count Lymph % (Auto) [place] % (Auto) Lymph # [place] # Baso # Seg Neutrophils % Seg Neuts % (Manual) Lymphocytes % (Manual) Monocytes % (Manual) Seg Neutrophils # Seg Neutrophils # Man Lymphocytes # (Manual) Monocytes # (Manual) Basophils # (Manual) Percent Retic PT INR 1.14 H APTT Heparin Anti-Xa Level POC ABG pH POC ABG pCO2 POC ABG pO2 Sodium Potassium Chloride Carbon Dioxide BUN Creatinine Glucose POC Glucose 198 H 172 H Calcium Phosphorus Iron TIBC Lactate Dehydrogenase Total Creatine Kinase NT-Pro-B Natriuret Pep Total Protein Albumin Najlw-4-Vlnvzwjlt Neffo-3-Czwrsownh Beta Globulins PEP Interpretation Cholesterol LDL Cholesterol Direct Vitamin B12 Urine WBC (Auto) Urine Creatinine Crossmatch 05/11/16 05/11/16 05/11/16 04:16 04:16 05:13 WBC 16.1 H RBC 3.27 L Hgb 8.8 L Hct 27.7 L MCV MCH 27 L MCHC RDW 17.9 H Plt Count 475 H Lymph % (Auto) 8.9 L [place] % (Auto) 8.0 H Lymph # [place] # 1.3 H Baso # Seg Neutrophils % 81.6 H Seg Neuts % (Manual) Lymphocytes % (Manual) Monocytes % (Manual) Seg Neutrophils # 13.1 H Seg Neutrophils # Man Lymphocytes # (Manual) Monocytes # (Manual) Basophils # (Manual) Percent Retic PT INR APTT Heparin Anti-Xa Level POC ABG pH POC ABG pCO2 POC ABG pO2 Sodium 152 H Potassium Chloride 114.2 H Carbon Dioxide BUN 23 H Creatinine 0.6 L Glucose 166 H POC Glucose 173 H Calcium 8.0 L Phosphorus Iron TIBC Lactate Dehydrogenase Total Creatine Kinase NT-Pro-B Natriuret Pep Total Protein Albumin Sqzse-0-Nobopaxhg Efbhv-8-Pgcvjtthr Beta Globulins PEP Interpretation Cholesterol LDL Cholesterol Direct Vitamin B12 Urine WBC (Auto) Urine Creatinine Crossmatch 05/11/16 05/11/16 05/11/16 11:30 17:20 23:53 WBC RBC Hgb Hct MCV MCH MCHC RDW Plt Count Lymph % (Auto) [place] % (Auto) Lymph # [place] # Baso # Seg Neutrophils % Seg Neuts % (Manual) Lymphocytes % (Manual) Monocytes % (Manual) Seg Neutrophils # Seg Neutrophils # Man Lymphocytes # (Manual) Monocytes # (Manual) Basophils # (Manual) Percent Retic PT INR APTT Heparin Anti-Xa Level POC ABG pH POC ABG pCO2 POC ABG pO2 Sodium Potassium Chloride Carbon Dioxide BUN Creatinine Glucose POC Glucose 192 H 147 H 164 H Calcium Phosphorus Iron TIBC Lactate Dehydrogenase Total Creatine Kinase NT-Pro-B Natriuret Pep Total Protein Albumin Elnfj-5-Jqefdongg Jkhyz-6-Rbgycaboh Beta Globulins PEP Interpretation Cholesterol LDL Cholesterol Direct Vitamin B12 Urine WBC (Auto) Urine Creatinine Crossmatch 05/12/16 05/12/16 05/12/16 05:35 07:33 11:01 WBC RBC Hgb 9.2 L Hct 29.2 L MCV MCH MCHC RDW Plt Count 503 H Lymph % (Auto) [place] % (Auto) Lymph # [place] # Baso # Seg Neutrophils % Seg Neuts % (Manual) Lymphocytes % (Manual) Monocytes % (Manual) Seg Neutrophils # Seg Neutrophils # Man Lymphocytes # (Manual) Monocytes # (Manual) Basophils # (Manual) Percent Retic PT INR APTT Heparin Anti-Xa Level POC ABG pH POC ABG pCO2 POC ABG pO2 Sodium 148 H Potassium Chloride 108.5 H Carbon Dioxide BUN Creatinine 0.5 L Glucose 146 H POC Glucose 145 H Calcium 8.2 L Phosphorus Iron TIBC Lactate Dehydrogenase Total Creatine Kinase NT-Pro-B Natriuret Pep Total Protein Albumin Nnydz-2-Cgnhxmvya Mxmvx-4-Cncziwoai Beta Globulins PEP Interpretation Cholesterol LDL Cholesterol Direct Vitamin B12 Urine WBC (Auto) Urine Creatinine Crossmatch 05/12/16 05/12/16 05/12/16 11:44 18:15 19:33 WBC RBC Hgb Hct MCV MCH MCHC RDW Plt Count Lymph % (Auto) [place] % (Auto) Lymph # [place] # Baso # Seg Neutrophils % Seg Neuts % (Manual) Lymphocytes % (Manual) Monocytes % (Manual) Seg Neutrophils # Seg Neutrophils # Man Lymphocytes # (Manual) Monocytes # (Manual) Basophils # (Manual) Percent Retic PT INR APTT Heparin Anti-Xa Level 0.17 L POC ABG pH POC ABG pCO2 POC ABG pO2 Sodium Potassium Chloride Carbon Dioxide BUN Creatinine Glucose POC Glucose 223 H 137 H Calcium Phosphorus Iron TIBC Lactate Dehydrogenase Total Creatine Kinase NT-Pro-B Natriuret Pep Total Protein Albumin Tauns-6-Tpyyufpjt Hifua-9-Yratwkqgm Beta Globulins PEP Interpretation Cholesterol LDL Cholesterol Direct Vitamin B12 Urine WBC (Auto) Urine Creatinine Crossmatch 05/12/16 05/13/16 05/13/16 23:23 04:45 05:43 WBC 18.1 H RBC 3.26 L Hgb 9.0 L Hct 29.0 L MCV MCH MCHC 31 L RDW 18.3 H Plt Count 467 H Lymph % (Auto) [place] % (Auto) Lymph # [place] # Baso # Seg Neutrophils % Seg Neuts % (Manual) 76.0 H Lymphocytes % (Manual) 11.0 L Monocytes % (Manual) 8.0 H Seg Neutrophils # Seg Neutrophils # Man 13.8 H Lymphocytes # (Manual) Monocytes # (Manual) 1.4 H Basophils # (Manual) 0.2 H Percent Retic PT INR APTT Heparin Anti-Xa Level POC ABG pH POC ABG pCO2 POC ABG pO2 Sodium Potassium Chloride Carbon Dioxide BUN Creatinine Glucose POC Glucose 114 H 136 H Calcium Phosphorus Iron TIBC Lactate Dehydrogenase Total Creatine Kinase NT-Pro-B Natriuret Pep Total Protein Albumin Aubio-4-Lobdvcpmy Fgoiq-1-Siiaidrly Beta Globulins PEP Interpretation Cholesterol LDL Cholesterol Direct Vitamin B12 Urine WBC (Auto) Urine Creatinine Crossmatch 05/13/16 05/13/16 05/13/16 07:04 08:13 11:22 WBC RBC Hgb Hct MCV MCH MCHC RDW Plt Count Lymph % (Auto) [place] % (Auto) Lymph # [place] # Baso # Seg Neutrophils % Seg Neuts % (Manual) Lymphocytes % (Manual) Monocytes % (Manual) Seg Neutrophils # Seg Neutrophils # Man Lymphocytes # (Manual) Monocytes # (Manual) Basophils # (Manual) Percent Retic PT INR APTT Heparin Anti-Xa Level 0.25 L POC ABG pH POC ABG pCO2 POC ABG pO2 Sodium Potassium Chloride 109.1 H Carbon Dioxide BUN Creatinine 0.5 L Glucose 131 H POC Glucose 155 H Calcium 8.1 L Phosphorus Iron TIBC Lactate Dehydrogenase Total Creatine Kinase NT-Pro-B Natriuret Pep Total Protein Albumin Cdvvy-8-Acykadull Zrhwi-8-Lldkevsfq Beta Globulins PEP Interpretation Cholesterol LDL Cholesterol Direct Vitamin B12 Urine WBC (Auto) Urine Creatinine Crossmatch 05/13/16 05/13/16 05/13/16 17:29 17:33 17:59 WBC RBC Hgb Hct MCV MCH MCHC RDW Plt Count Lymph % (Auto) [place] % (Auto) Lymph # [place] # Baso # Seg Neutrophils % Seg Neuts % (Manual) Lymphocytes % (Manual) Monocytes % (Manual) Seg Neutrophils # Seg Neutrophils # Man Lymphocytes # (Manual) Monocytes # (Manual) Basophils # (Manual) Percent Retic PT INR APTT Heparin Anti-Xa Level POC ABG pH POC ABG pCO2 POC ABG pO2 Sodium Potassium Chloride Carbon Dioxide BUN Creatinine Glucose POC Glucose 46 L < 40 L 152 H Calcium Phosphorus Iron TIBC Lactate Dehydrogenase Total Creatine Kinase NT-Pro-B Natriuret Pep Total Protein Albumin Gwzbz-9-Dpnrkkpng Ldaie-1-Jsahozjlf Beta Globulins PEP Interpretation Cholesterol LDL Cholesterol Direct Vitamin B12 Urine WBC (Auto) Urine Creatinine Crossmatch 05/13/16 05/14/16 05/14/16 18:06 04:31 04:31 WBC 18.0 H RBC Hgb 10.2 L Hct 32.6 L MCV MCH 27 L MCHC 31 L RDW 17.5 H Plt Count 576 H Lymph % (Auto) 8.9 L [place] % (Auto) 9.3 H Lymph # [place] # 1.7 H Baso # Seg Neutrophils % 80.5 H Seg Neuts % (Manual) Lymphocytes % (Manual) Monocytes % (Manual) Seg Neutrophils # 14.5 H Seg Neutrophils # Man Lymphocytes # (Manual) Monocytes # (Manual) Basophils # (Manual) Percent Retic PT INR APTT Heparin Anti-Xa Level < 0.10 L POC ABG pH POC ABG pCO2 POC ABG pO2 Sodium Potassium Chloride Carbon Dioxide BUN Creatinine 0.6 L Glucose POC Glucose Calcium Phosphorus Iron TIBC Lactate Dehydrogenase Total Creatine Kinase NT-Pro-B Natriuret Pep Total Protein Albumin Ocmjg-6-Akvvfcxkg Tuhok-7-Dbnmeyxch Beta Globulins PEP Interpretation Cholesterol LDL Cholesterol Direct Vitamin B12 Urine WBC (Auto) Urine Creatinine Crossmatch 05/14/16 05/14/16 05/14/16 05:50 11:47 17:45 WBC RBC Hgb Hct MCV MCH MCHC RDW Plt Count Lymph % (Auto) [place] % (Auto) Lymph # [place] # Baso # Seg Neutrophils % Seg Neuts % (Manual) Lymphocytes % (Manual) Monocytes % (Manual) Seg Neutrophils # Seg Neutrophils # Man Lymphocytes # (Manual) Monocytes # (Manual) Basophils # (Manual) Percent Retic PT INR APTT Heparin Anti-Xa Level POC ABG pH POC ABG pCO2 POC ABG pO2 Sodium Potassium Chloride Carbon Dioxide BUN Creatinine Glucose POC Glucose 136 H 232 H 220 H Calcium Phosphorus Iron TIBC Lactate Dehydrogenase Total Creatine Kinase NT-Pro-B Natriuret Pep Total Protein Albumin Dapbm-3-Zumjxtvvb Wxqde-0-Pusuemdra Beta Globulins PEP Interpretation Cholesterol LDL Cholesterol Direct Vitamin B12 Urine WBC (Auto) Urine Creatinine Crossmatch 05/14/16 05/15/16 05/15/16 22:57 04:37 04:37 WBC 16.4 H RBC 3.54 L Hgb 9.3 L Hct 29.4 L MCV 83 L MCH 26 L MCHC RDW 17.7 H Plt Count 586 H Lymph % (Auto) 6.7 L [place] % (Auto) 8.3 H Lymph # 1.1 L [place] # 1.4 H Baso # Seg Neutrophils % 83.7 H Seg Neuts % (Manual) Lymphocytes % (Manual) Monocytes % (Manual) Seg Neutrophils # 13.7 H Seg Neutrophils # Man Lymphocytes # (Manual) Monocytes # (Manual) Basophils # (Manual) Percent Retic PT INR APTT Heparin Anti-Xa Level POC ABG pH POC ABG pCO2 POC ABG pO2 Sodium Potassium Chloride Carbon Dioxide BUN Creatinine 0.6 L Glucose 220 H POC Glucose 265 H Calcium Phosphorus Iron TIBC Lactate Dehydrogenase Total Creatine Kinase NT-Pro-B Natriuret Pep Total Protein Albumin Tyjch-5-Ntphdkzro Wmhqt-1-Phbwvehok Beta Globulins PEP Interpretation Cholesterol LDL Cholesterol Direct Vitamin B12 Urine WBC (Auto) Urine Creatinine Crossmatch 05/15/16 05/15/16 05/15/16 11:43 17:08 23:47 WBC RBC Hgb Hct MCV MCH MCHC RDW Plt Count Lymph % (Auto) [place] % (Auto) Lymph # [place] # Baso # Seg Neutrophils % Seg Neuts % (Manual) Lymphocytes % (Manual) Monocytes % (Manual) Seg Neutrophils # Seg Neutrophils # Man Lymphocytes # (Manual) Monocytes # (Manual) Basophils # (Manual) Percent Retic PT INR APTT Heparin Anti-Xa Level POC ABG pH POC ABG pCO2 POC ABG pO2 Sodium Potassium Chloride Carbon Dioxide BUN Creatinine Glucose POC Glucose 290 H 180 H 130 H Calcium Phosphorus Iron TIBC Lactate Dehydrogenase Total Creatine Kinase NT-Pro-B Natriuret Pep Total Protein Albumin [place]-5-Oevxdhnic Gdyrc-5-Wlmojwiau Beta Globulins PEP Interpretation Cholesterol LDL Cholesterol Direct Vitamin B12 Urine WBC (Auto) Urine Creatinine Crossmatch 05/16/16 05/16/16 05/16/16 04:13 04:13 04:29 WBC 15.4 H RBC 3.61 L Hgb 9.4 L Hct 30.2 L MCV MCH 26 L MCHC 31 L RDW 18.0 H Plt Count 563 H Lymph % (Auto) 9.3 L [place] % (Auto) 10.1 H Lymph # [place] # 1.6 H Baso # Seg Neutrophils % 79.6 H Seg Neuts % (Manual) Lymphocytes % (Manual) Monocytes % (Manual) Seg Neutrophils # 12.3 H Seg Neutrophils # Man Lymphocytes # (Manual) Monocytes # (Manual) Basophils # (Manual) Percent Retic PT INR APTT Heparin Anti-Xa Level POC ABG pH 7.491 H POC ABG pCO2 33.9 L POC ABG pO2 Sodium 147 H Potassium Chloride 108.2 H Carbon Dioxide BUN 21 H Creatinine 0.6 L Glucose 162 H POC Glucose Calcium Phosphorus Iron TIBC Lactate Dehydrogenase Total Creatine Kinase NT-Pro-B Natriuret Pep Total Protein Albumin Anyit-4-Jbicjellw Jlkeg-7-Aqxbvbppn Beta Globulins PEP Interpretation Cholesterol LDL Cholesterol Direct Vitamin B12 Urine WBC (Auto) Urine Creatinine Crossmatch 05/16/16 05/16/16 05/17/16 11:40 17:54 00:00 WBC RBC Hgb Hct MCV MCH MCHC RDW Plt Count Lymph % (Auto) [place] % (Auto) Lymph # [place] # Baso # Seg Neutrophils % Seg Neuts % (Manual) Lymphocytes % (Manual) Monocytes % (Manual) Seg Neutrophils # Seg Neutrophils # Man Lymphocytes # (Manual) Monocytes # (Manual) Basophils # (Manual) Percent Retic PT INR APTT Heparin Anti-Xa Level POC ABG pH POC ABG pCO2 POC ABG pO2 Sodium Potassium Chloride Carbon Dioxide BUN Creatinine Glucose POC Glucose 197 H 128 H 41 L Calcium Phosphorus Iron TIBC Lactate Dehydrogenase Total Creatine Kinase NT-Pro-B Natriuret Pep Total Protein Albumin Goirk-9-Wrchvfigy Grsbe-4-Jxqadnwvs Beta Globulins PEP Interpretation Cholesterol LDL Cholesterol Direct Vitamin B12 Urine WBC (Auto) Urine Creatinine Crossmatch 05/17/16 05/17/16 05/17/16 02:29 04:42 04:42 WBC 15.1 H RBC 3.42 L Hgb 9.1 L Hct 28.1 L MCV 82 L MCH 27 L MCHC RDW 18.1 H Plt Count 500 H Lymph % (Auto) 6.4 L [place] % (Auto) 9.3 H Lymph # 1.0 L [place] # 1.4 H Baso # Seg Neutrophils % 83.2 H Seg Neuts % (Manual) Lymphocytes % (Manual) Monocytes % (Manual) Seg Neutrophils # 12.6 H Seg Neutrophils # Man Lymphocytes # (Manual) Monocytes # (Manual) Basophils # (Manual) Percent Retic PT INR APTT Heparin Anti-Xa Level POC ABG pH POC ABG pCO2 POC ABG pO2 Sodium Potassium Chloride 107.7 H Carbon Dioxide BUN Creatinine 0.6 L Glucose 150 H POC Glucose 153 H Calcium 8.3 L Phosphorus Iron TIBC Lactate Dehydrogenase Total Creatine Kinase NT-Pro-B Natriuret Pep Total Protein Albumin Cdxel-8-Ijjmxofpc Sdmbu-7-Hnlatcmho Beta Globulins PEP Interpretation Cholesterol LDL Cholesterol Direct Vitamin B12 Urine WBC (Auto) Urine Creatinine Crossmatch
[2016-05-17] MEDS: NORMODYNE PO SCH ×3 (08:38→20:39)
[2016-05-17] MEDS: KEPPRA PO SCH ×2 (10:11→21:23)
[2016-05-17] MEDS: CORDARONE PO SCH (10:11)
[2016-05-17] MEDS: PEPCID PO SCH ×2 (10:12→21:23)
[2016-05-17] MEDS: ZESTRIL PO SCH ×2 (11:06→21:23)
[2016-05-17] MEDS: NOVOLOG SUB-Q SCH ×2 (11:59→18:02)
[2016-05-17] MEDS: NORVASC PO SCH (12:47)
[2016-05-17] MEDS: LEVEMIR SUB-Q SCH (12:49)
--- NOTE | 2016-05-17 19:13 | Progress Note ---
Assessment and Plan Assessment and plan: 60 years old -[place] male with nonobstructive CAD per recent CAD, hypertension, hyperlipidemia, bioprosthetic aortic valve replacement, chronic kidney disease, diabetes and seizure disorder who was initially admitted for metabolic encephalopathy with hypernatremia. Patient developed respiratory failure during this hospitalization on 03/27 and was intubated placed on mechanical ventilation. Patient was later extubated during his hospitalization but was reintubated on the evening of 04/16/16. Patient now remains intubated on mechanical ventilation. Patient is also status post PEG tube placement on . Patient remains on mechanical ventilation. Patient status post tracheostomy on 04/29/16. Nursing staff reported that there was slight bleeding at trachesotomy site when heparin drip was turned on. Trach bleeding has stopped. 1. Acute respiratory failure. Patient reintubated on 04/17/16. Continue mechanical ventilation per pulmonary. Tracheostomy on 04/29/16. Continue T piece as tolerated. 2. Acute CVA. Lacunar infarc. CT scan revealed acute ischemic infarct in the right cerebellum. MRI reveals subacute infarct in the right cerebellar hemisphere with associated edema and mass effect as previously described. Patient also with multiple areas of acute infarct in the left occipital and frontal lobes that are most likely embolic. LIZZIE done- No thrombus but decreased flow. Cardiology recommends anticoagulation with Coumadin. Neurlogy reconsulted 3. Hypotension. Resolved. Patient currently off pressors. Echocardiogram revealed EF of 50-55%. 4. Encephalopathy. EEG normal. Etiology likely secondary to CVA +/- hypertension. 5. UTI-continue Zosyn for now anticipate 7 more day program 6. Accelerated hypertension. Continue antihypertensive medications 7. CAD-stable 8. Seizures-continue Keppra. EEG normal. 9. Type 2 diabetes mellitus. Glycemic control. 10. History of aortic dissection status post repair. 11. History of prosthetic aortic valve replacement. Echo with normal function on 08/2015. Heparin on hold secondary to trach site bleeding. 12. DVT prophylaxis. Heparin drip on hold. 13. GI prophylaxis-Pepcid 14. Oropharyngeal dysphagia. Patient failed swallow evaluation. Status post PEG placement on 04/17. 15. Anemia. Monitor H&H closely. 16. Hypernatremia. Resolved. Continue free water. 17. Tracheostomy site bleeding. We will hold heparin for now and monitor. Surgery following. 18. Neck Cellulitis. Continue Zosyn. Discussed with nursing staff, still pending placement. Currently trial of PC History Interval history: T-piece. Not answering any questions Hospitalist Physical - Physical exam Narrative exam: Constitutional: no acute distress, other (opens eyes, not following commands for me), trache in place and dry Eyes: non-icteric ENT: other (tracheotomy) Neck: supple, other (no bleeding at trach site) Effort: normal Ascultation: Bilateral: clear, rhonchi (occasional), other (coarse BS bilaterally) Percussion: Bilateral: not dull Cardiovascular: regular rate and rhythm, murmur noted Gastrointestinal: normoactive bowel sounds, soft, non-tender Extremities: no cyanosis, no edema Neurologic: other (eyes open, not following commands or moving extremities for me) Psychiatric: other (unable to assess) CBC and BMP: - Constitutional Vitals: Temp Pulse Resp BP Pulse Ox 98.7 F 82 25 H 108/71 98 05/17/16 16:00 05/17/16 18:00 05/17/16 18:00 05/17/16 18:00 05/17/16 18:00 General appearance: Present: no acute distress, other (tracheostomy) Results - Labs CBC & Chem 7: 05/17/16 04:42 05/17/16 04:42 Labs: Laboratory Last Values WBC 15.1 K/mm3 (4.5-11.0) H 05/17/16 04:42 RBC 3.42 M/mm3 (3.65-5.03) L 05/17/16 04:42 Hgb 9.1 gm/dl (11.8-15.2) L 05/17/16 04:42 Hct 28.1 % (35.5-45.6) L 05/17/16 04:42 MCV 82 fl (84-94) L 05/17/16 04:42 MCH 27 pg (28-32) L 05/17/16 04:42 MCHC 32 % (32-34) 05/17/16 04:42 RDW 18.1 % (13.2-15.2) H 05/17/16 04:42 Plt Count 500 K/mm3 (140-440) H 05/17/16 04:42 Lymph % (Auto) 6.4 % (13.4-35.0) L 05/17/16 04:42 Bland % (Auto) 9.3 % (0.0-7.3) H 05/17/16 04:42 Eos % (Auto) 0.6 % (0.0-4.3) 05/17/16 04:42 Baso % (Auto) 0.5 % (0.0-1.8) 05/17/16 04:42 Lymph # 1.0 K/mm3 (1.2-5.4) L 05/17/16 04:42 Bland # 1.4 K/mm3 (0.0-0.8) H 05/17/16 04:42 Eos # 0.1 K/mm3 (0.0-0.4) 05/17/16 04:42 Baso # 0.1 K/mm3 (0.0-0.1) 05/17/16 04:42 Add Manual Diff Complete 05/13/16 04:45 Total Counted 100 05/13/16 04:45 Seg Neutrophils % 83.2 % (40.0-70.0) H 05/17/16 04:42 Seg Neuts % (Manual) 76.0 % (40.0-70.0) H 05/13/16 04:45 Band Neutrophils % 3.0 % 05/13/16 04:45 Lymphocytes % (Manual) 11.0 % (13.4-35.0) L 05/13/16 04:45 Reactive Lymphs % (Man) 0 % 05/13/16 04:45 Monocytes % (Manual) 8.0 % (0.0-7.3) H 05/13/16 04:45 Eosinophils % (Manual) 1.0 % (0.0-4.3) 05/13/16 04:45 Basophils % (Manual) 1.0 % (0.0-1.8) 05/13/16 04:45 Metamyelocytes % 0 % 05/13/16 04:45 Myelocytes % 0 % 05/13/16 04:45 Promyelocytes % 0 % 05/13/16 04:45 Blast Cells % 0 % 05/13/16 04:45 Nucleated RBC % Not Reportable 05/13/16 04:45 Seg Neutrophils # 12.6 K/mm3 (1.8-7.7) H 05/17/16 04:42 Seg Neutrophils # Man 13.8 K/mm3 (1.8-7.7) H 05/13/16 04:45 Band Neutrophils # 0.5 K/mm3 05/13/16 04:45 Lymphocytes # (Manual) 2.0 K/mm3 (1.2-5.4) 05/13/16 04:45 Abs React Lymphs (Man) 0.0 K/mm3 05/13/16 04:45 Monocytes # (Manual) 1.4 K/mm3 (0.0-0.8) H 05/13/16 04:45 Eosinophils # (Manual) 0.2 K/mm3 (0.0-0.4) 05/13/16 04:45 Basophils # (Manual) 0.2 K/mm3 (0.0-0.1) H 05/13/16 04:45 Metamyelocytes # 0.0 K/mm3 05/13/16 04:45 Myelocytes # 0.0 K/mm3 05/13/16 04:45 Promyelocytes # 0.0 K/mm3 05/13/16 04:45 Blast Cells # 0.0 K/mm3 05/13/16 04:45 WBC Morphology Not Reportable 05/13/16 04:45 Hypersegmented Neuts Not Reportable 05/13/16 04:45 Hyposegmented Neuts Not Reportable 05/13/16 04:45 Hypogranular Neuts Not Reportable 05/13/16 04:45 Smudge Cells Not Reportable 05/13/16 04:45 Toxic Granulation Not Reportable 05/13/16 04:45 Toxic Vacuolation Not Reportable 05/13/16 04:45 Dohle Bodies Not Reportable 05/13/16 04:45 Pelger-Huet Anomaly Not Reportable 05/13/16 04:45 Corina Rods Not Reportable 05/13/16 04:45 Platelet Estimate Consistent w auto 05/13/16 04:45 Clumped Platelets Not Reportable 05/13/16 04:45 Plt Clumps, EDTA Not Reportable 05/13/16 04:45 Large Platelets Not Reportable 05/13/16 04:45 Giant Platelets Not Reportable 05/13/16 04:45 Platelet Satelliting Not Reportable 05/13/16 04:45 Plt Morphology Comment Not Reportable 05/13/16 04:45 RBC Morphology Not Reportable 05/13/16 04:45 Dimorphic RBCs Not Reportable 05/13/16 04:45 Polychromasia Rare 05/13/16 04:45 Hypochromasia Not Reportable 05/13/16 04:45 Poikilocytosis Not Reportable 05/13/16 04:45 Anisocytosis 1+ 05/13/16 04:45 Microcytosis Not Reportable 05/13/16 04:45 Macrocytosis Rare 05/13/16 04:45 Spherocytes Not Reportable 05/13/16 04:45 Pappenheimer Bodies Not Reportable 05/13/16 04:45 Sickle Cells Not Reportable 05/13/16 04:45 Target Cells Not Reportable 05/13/16 04:45 Tear Drop Cells Not Reportable 05/13/16 04:45 Ovalocytes Not Reportable 05/13/16 04:45 Helmet Cells Not Reportable 05/13/16 04:45 Mcgrath-Vidalia Bodies Not Reportable 05/13/16 04:45 [place] Rings Not Reportable 05/13/16 04:45 [place] Cells Not Reportable 05/13/16 04:45 Bite Cells Not Reportable 05/13/16 04:45 Crenated Cell Not Reportable 05/13/16 04:45 Elliptocytes Not Reportable 05/13/16 04:45 Acanthocytes (Spur) Not Reportable 05/13/16 04:45 Rouleaux Not Reportable 05/13/16 04:45 Hemoglobin C Crystals Not Reportable 05/13/16 04:45 Schistocytes Not Reportable 05/13/16 04:45 Malaria parasites Not Reportable 05/13/16 04:45 Percent Retic 3.68 % (0.78-2.58) H 04/29/16 10:16 Gideon Bodies Not Reportable 05/13/16 04:45 Hem Pathologist Commnt No 05/13/16 04:45 PT 13.8 Sec. (12.2-14.9) 05/12/16 11:01 INR 1.07 (0.87-1.13) 05/12/16 11:01 APTT 27.2 Sec. (24.2-36.6) 05/12/16 11:01 Heparin Anti-Xa Level < 0.10 U.I./ml (0.3-0.7) L 05/13/16 18:06 POC ABG pH 7.491 (7.35-7.45) H 05/16/16 04:29 POC ABG pCO2 33.9 (35-45) L 05/16/16 04:29 POC ABG pO2 88 (80-105) 05/16/16 04:29 POC ABG HCO3 25.9 05/16/16 04:29 POC ABG Total CO2 27 05/16/16 04:29 POC ABG O2 Sat 98 05/16/16 04:29 POC ABG Base Excess 3 05/16/16 04:29 VBG pH 7.418 (7.320-7.420) 03/24/16 14:00 FiO2 25 % 05/16/16 04:29 Sodium 145 mmol/L (137-145) 05/17/16 04:42 Potassium 4.3 mmol/L (3.6-5.0) 05/17/16 04:42 Chloride 107.7 mmol/L (98-107) H 05/17/16 04:42 Carbon Dioxide 25 mmol/L (22-30) 05/17/16 04:42 Anion Gap 17 mmol/L 05/17/16 04:42 BUN 19 mg/dL (9-20) 05/17/16 04:42 Creatinine 0.6 mg/dL (0.8-1.5) L 05/17/16 04:42 Estimated GFR > 60 ml/min 05/17/16 04:42 BUN/Creatinine Ratio 31.66 % 05/17/16 04:42 Glucose 150 mg/dL (75-100) H 05/17/16 04:42 POC Glucose 195 (70-105) H 05/17/16 11:02 Hemoglobin A1c 9.6 % (4-6) H 03/24/16 14:00 Lactic Acid 1.6 mmol/L (0.7-2.0) 04/17/16 12:17 Calcium 8.3 mg/dL (8.4-10.2) L 05/17/16 04:42 Phosphorus 3.1 mg/dL (2.5-4.5) 05/11/16 04:16 Magnesium 2.3 mg/dL (1.7-2.3) 05/11/16 04:16 Iron 10 ug/dL (49-181) L 04/29/16 10:16 TIBC 138 mcg/dL (250-450) L 04/29/16 10:16 Ferritin 336.4 ng/mL (13.0-400.0) 04/29/16 10:16 Total Bilirubin < 0.2 mg/dL (0.1-1.2) 04/27/16 04:21 AST 18 units/L (5-40) 04/27/16 04:21 ALT 39 units/L (7-56) 04/27/16 04:21 Alkaline Phosphatase 103 units/L (35-129) 04/27/16 04:21 Lactate Dehydrogenase 204 units/L (91-180) H 04/29/16 10:16 Total Creatine Kinase 356 units/L (55-170) H 03/28/16 13:29 Troponin T < 0.010 ng/mL (0.00-0.029) 03/28/16 13:29 NT-Pro-B Natriuret Pep 897.9 pg/mL (0-900) 04/03/16 04:10 Serum Total Protein 7.1 g/dL (6.1-8.1) 03/25/16 13:00 Total Protein 6.0 g/dL (6.3-8.2) L 04/27/16 04:21 Albumin 2.0 g/dL (3.9-5) L 04/27/16 04:21 Albumin/Globulin Ratio 0.5 % 04/27/16 04:21 [id number] See scanned report 03/31/16 12:20 [id number] See scanned report 03/31/16 12:20 Beta Globulins See scanned report 03/31/16 12:20 [id number] 2.46 mg/L (<=2.51) 03/25/16 13:00 Gamma Globulins See scanned report 03/31/16 12:20 Abnorm Protein Band 1 see below (()) 03/25/16 13:00 PEP Interpretation See scanned report 03/31/16 12:20 Triglycerides 88 mg/dL (2-149) 03/24/16 17:58 Cholesterol 221 mg/dL (50-199) H 03/24/16 17:58 LDL Cholesterol Direct 146 mg/dL (50-130) H 03/24/16 17:58 HDL Cholesterol 58 mg/dL (40-59) 03/24/16 17:58 Cholesterol/HDL Ratio 3.81 % 03/24/16 17:58 Vitamin B12 1005 pg/mL (211-911) H 04/29/16 10:16 Folate 12.78 ng/mL (7.3-26.0) 04/29/16 10:16 Urine Color Yellow (Yellow) 05/04/16 10:20 Urine Turbidity Cloudy (Clear) 05/04/16 10:20 Urine pH 5.0 (5.0-7.0) 05/04/16 10:20 Ur Specific [place] 1.017 (1.003-1.030) 05/04/16 10:20 Urine Protein 100 mg/dl mg/dL (Negative) 05/04/16 10:20 Urine Glucose (UA) >=500 mg/dL (Negative) 05/04/16 10:20 Urine Ketones Neg mg/dL (Negative) 05/04/16 10:20 Urine Blood Sm (Negative) 05/04/16 10:20 Urine Nitrite Neg (Negative) 05/04/16 10:20 Urine Bilirubin Neg (Negative) 05/04/16 10:20 Urine Urobilinogen 2.0 mg/dL (<2.0) 05/04/16 10:20 Ur Leukocyte Esterase Lg (Negative) 05/04/16 10:20 Urine WBC (Auto) > 182.0 /HPF (0.0-6.0) H 05/04/16 10:20 Urine RBC (Auto) 13.0 /HPF (0.0-6.0) 05/04/16 10:20 U Epithel Cells (Auto) < 1.0 /HPF (0-13.0) 05/04/16 10:20 Urine Bacteria (Auto) 1+ /HPF (Negative) 05/04/16 10:20 Urine WBC Clumps 3+ /HPF 05/04/16 10:20 Hyaline Casts 1 /LPF 03/24/16 14:27 Urine Mucus Few /HPF 05/04/16 10:20 Urine Yeast (Budding) 1+ /HPF 05/04/16 10:20 Ur Random Creatinine See scanned report 03/31/16 12:20 U Random Total Protein See scanned report 03/31/16 12:20 Urine Creatinine 85.5 mg/dL (0.1-20.0) H 04/20/16 11:50 Protein/Creatinin Ratio See scanned report 03/31/16 12:20 Urine Sodium 17 mEq/L 04/20/16 11:50 U Abnormal Prot Band 1 See scanned report 03/31/16 12:20 U Abnormal Prot Band 2 See scanned report 03/31/16 12:20 U Abnormal Prot Band 3 See scanned report 03/31/16 12:20 Ketones 1.0 mg/dL (0.2-2.8) 03/24/16 14:00 Blood Type A POSITIVE 05/09/16 19:47 Antibody Screen Negative 05/09/16 19:47 Crossmatch See Detail 05/09/16 19:47
[2016-05-18] MEDS: DUONEB 0.5 MG-3 MG/3 ML SOLN IH SCH ×4 (01:46→21:01)
[2016-05-18 05:07] LABS: Basophils % (Auto) 0.5 % (0.0-1.8); Eosinophils % (Auto) 1.7 % (0.0-4.3); Hematocrit 28.6 % (35.5-45.6); Mean Corpuscular HGB Conc 32 % (32-34); Mean Corpuscular Volume 82 fl (84-94); Platelet Count 532 K/mm3 (140-440); Red Blood Count 3.48 M/mm3 (3.65-5.03); Red Cell Distribution Width 18.2 % (13.2-15.2); White Blood Count 13.4 K/mm3 (4.5-11.0)
[2016-05-18 05:11] LABS: Mean Corpuscular Hemoglobin 26 pg (28-32)
[2016-05-18 05:23] LABS: Anion Gap 17 mmol/L; Blood Urea Nitrogen 21 mg/dL (9-20); Calcium 8.4 mg/dL (8.4-10.2); Carbon Dioxide 24 mmol/L (22-30); Chloride 104.5 mmol/L (98-107); Glucose 136 mg/dL (75-100); Potassium 4.3 mmol/L (3.6-5.0); Sodium 141 mmol/L (137-145)
[2016-05-18] MEDS: NOVOLOG SUB-Q SCH ×4 (06:31→18:26)
--- NOTE | 2016-05-18 07:18 | Progress Note ---
Assessment and Plan Assessment and plan: Please disregard initial note done today as it was prematurely signed. 60 years old -[place] male with nonobstructive CAD per recent CAD, hypertension, hyperlipidemia, bioprosthetic aortic valve replacement, chronic kidney disease, diabetes and seizure disorder who was initially admitted for metabolic encephalopathy with hypernatremia. Patient developed respiratory failure during this hospitalization on 03/27 and was intubated placed on mechanical ventilation. Patient was later extubated during his hospitalization but was reintubated on the evening of 04/16/16. Patient now remains intubated on mechanical ventilation. Patient is also status post PEG tube placement on . Patient remains on mechanical ventilation. Patient status post tracheostomy on 04/29/16. Nursing staff reported that there was slight bleeding at trachesotomy site when heparin drip was turned on. 1. Acute respiratory failure. Patient reintubated on . Tracheostomy on 04/29/16. another attempt on T piece trial today so far patient is tolerating it. 2. Acute CVA. Lacunar infarc. CT scan revealed acute ischemic infarct in the right cerebellum. MRI reveals subacute infarct in the right cerebellar hemisphere with associated edema and mass effect as previously described. Patient also with multiple areas of acute infarct in the left occipital and frontal lobes that are most likely embolic. LIZZIE done- No thrombus but decreased flow. Anticoagulation was held indefinitely due to bleed., surgery was consulted and evaluated the pateint, no further bleeding around the site. Will request input from Neurologist 3. Sepsis Secondary to UTI- Bernal sensitive Enteroccous faecalis in Urine. No new fever today. Continue antibiotics for complex uti 4. Encephalopathy. EEG normal. Etiology likely secondary to CVA +/- hypertension. 5. Accelerated hypertension. Controlled. Continue antihypertensive medications 6. CAD-stable 7. Seizures-continue Keppra. EEG normal. 8. Type 2 diabetes mellitus. Glycemic control. 9. History of aortic dissection status post repair. 10. History of prosthetic aortic valve replacement. Echo with normal function on 08/2015. Heparin on hold secondary to trach site bleeding. 11. Oropharyngeal dysphagia. Patient failed swallow evaluation. Status post PEG placement on 04/17. 12. Anemia. Monitor H&H closely. 13. GI and DVT prophylaxis- Heparin held. Await re-eval by neurologist/ if no further bleeding in 24 hours can retry coumadin if ok with outside repairer special. Discussed with nursing staff, still pending placement. Currently trial of T- piece. exterminator care on discharge will be needed. Case management for discharge planning. The high probability of a clinically significant, sudden or life threatening deterioration of the [Pulmonary, Neurology] system(s) required my full and direct attention, intervention and personal management. The aggregate critical care time was [35] minutes. This time is in addition to time spent performing reported procedures but includes the following: [x] Data Review and interpretation [x] Patient assessment and monitoring of vital signs [x] Documentation [x] Medication orders and management History Interval history: T-piece. Not answering any questions or following commands Hospitalist Physical - Physical exam Narrative exam: Constitutional: no acute distress, other non purposefull movement, tracheostomy collar in plac Eyes: non-icteric ENT: other (tracheotomy) Neck: supple, other Effort: normal Ascultation: Bilateral: coarse breath sounds bilaterally Cardiovascular: regular rate and rhythm, murmur noted Gastrointestinal: normoactive bowel sounds, soft, non-tender Extremities: no cyanosis, no edema Neurologic: other (eyes open, not following commands or moving extremities for me) Psychiatric: other (unable to assess) CBC and BMP: - Constitutional Vitals: Temp Pulse Resp BP Pulse Ox 98.9 F 87 22 133/81 100 05/18/16 04:00 05/18/16 06:00 05/18/16 06:00 05/18/16 06:00 05/18/16 06:00 General appearance: Present: no acute distress, other (tracheostomy) Results - Labs CBC & Chem 7: 05/18/16 04:08 05/18/16 04:08 Labs: Laboratory Last Values WBC 13.4 K/mm3 (4.5-11.0) H 05/18/16 04:08 RBC 3.48 M/mm3 (3.65-5.03) L 05/18/16 04:08 Hgb 9.0 gm/dl (11.8-15.2) L 05/18/16 04:08 Hct 28.6 % (35.5-45.6) L 05/18/16 04:08 MCV 82 fl (84-94) L 05/18/16 04:08 MCH 26 pg (28-32) L 05/18/16 04:08 MCHC 32 % (32-34) 05/18/16 04:08 RDW 18.2 % (13.2-15.2) H 05/18/16 04:08 Plt Count 532 K/mm3 (140-440) H 05/18/16 04:08 Lymph % (Auto) 11.4 % (13.4-35.0) L 05/18/16 04:08 [facility] [facility] % (Auto) 8.8 % (0.0-7.3) H 05/18/16 04:08 Eos % (Auto) 1.7 % (0.0-4.3) 05/18/16 04:08 Baso % (Auto) 0.5 % (0.0-1.8) 05/18/16 04:08 Lymph # 1.5 K/mm3 (1.2-5.4) 05/18/16 04:08 [facility] # 1.2 K/mm3 (0.0-0.8) H 05/18/16 04:08 Eos # 0.2 K/mm3 (0.0-0.4) 05/18/16 04:08 Baso # 0.1 K/mm3 (0.0-0.1) 05/18/16 04:08 Add Manual Diff Complete 05/13/16 04:45 Total Counted 100 05/13/16 04:45 Seg Neutrophils % 77.6 % (40.0-70.0) H 05/18/16 04:08 Seg Neuts % (Manual) 76.0 % (40.0-70.0) H 05/13/16 04:45 Band Neutrophils % 3.0 % 05/13/16 04:45 Lymphocytes % (Manual) 11.0 % (13.4-35.0) L 05/13/16 04:45 Reactive Lymphs % (Man) 0 % 05/13/16 04:45 Monocytes % (Manual) 8.0 % (0.0-7.3) H 05/13/16 04:45 Eosinophils % (Manual) 1.0 % (0.0-4.3) 05/13/16 04:45 Basophils % (Manual) 1.0 % (0.0-1.8) 05/13/16 04:45 Metamyelocytes % 0 % 05/13/16 04:45 Myelocytes % 0 % 05/13/16 04:45 Promyelocytes % 0 % 05/13/16 04:45 Blast Cells % 0 % 05/13/16 04:45 Nucleated RBC % Not Reportable 05/13/16 04:45 Seg Neutrophils # 10.4 K/mm3 (1.8-7.7) H 05/18/16 04:08 Seg Neutrophils # Man 13.8 K/mm3 (1.8-7.7) H 05/13/16 04:45 Band Neutrophils # 0.5 K/mm3 05/13/16 04:45 Lymphocytes # (Manual) 2.0 K/mm3 (1.2-5.4) 05/13/16 04:45 Abs React Lymphs (Man) 0.0 K/mm3 05/13/16 04:45 Monocytes # (Manual) 1.4 K/mm3 (0.0-0.8) H 05/13/16 04:45 Eosinophils # (Manual) 0.2 K/mm3 (0.0-0.4) 05/13/16 04:45 Basophils # (Manual) 0.2 K/mm3 (0.0-0.1) H 05/13/16 04:45 Metamyelocytes # 0.0 K/mm3 05/13/16 04:45 Myelocytes # 0.0 K/mm3 05/13/16 04:45 Promyelocytes # 0.0 K/mm3 05/13/16 04:45 Blast Cells # 0.0 K/mm3 05/13/16 04:45 WBC Morphology Not Reportable 05/13/16 04:45 Hypersegmented Neuts Not Reportable 05/13/16 04:45 Hyposegmented Neuts Not Reportable 05/13/16 04:45 Hypogranular Neuts Not Reportable 05/13/16 04:45 Smudge Cells Not Reportable 05/13/16 04:45 Toxic Granulation Not Reportable 05/13/16 04:45 Toxic Vacuolation Not Reportable 05/13/16 04:45 Dohle Bodies Not Reportable 05/13/16 04:45 Pelger-Huet Anomaly Not Reportable 05/13/16 04:45 Corina Rods Not Reportable 05/13/16 04:45 Platelet Estimate Consistent w auto 05/13/16 04:45 Clumped Platelets Not Reportable 05/13/16 04:45 Plt Clumps, EDTA Not Reportable 05/13/16 04:45 Large Platelets Not Reportable 05/13/16 04:45 Giant Platelets Not Reportable 05/13/16 04:45 Platelet Satelliting Not Reportable 05/13/16 04:45 Plt Morphology Comment Not Reportable 05/13/16 04:45 RBC Morphology Not Reportable 05/13/16 04:45 Dimorphic RBCs Not Reportable 05/13/16 04:45 Polychromasia Rare 05/13/16 04:45 Hypochromasia Not Reportable 05/13/16 04:45 Poikilocytosis Not Reportable 05/13/16 04:45 Anisocytosis 1+ 05/13/16 04:45 Microcytosis Not Reportable 05/13/16 04:45 Macrocytosis Rare 05/13/16 04:45 Spherocytes Not Reportable 05/13/16 04:45 Pappenheimer Bodies Not Reportable 05/13/16 04:45 Sickle Cells Not Reportable 05/13/16 04:45 Target Cells Not Reportable 05/13/16 04:45 Tear Drop Cells Not Reportable 05/13/16 04:45 Ovalocytes Not Reportable 05/13/16 04:45 Helmet Cells Not Reportable 05/13/16 04:45 Mcgrath-Posey Bodies Not Reportable 05/13/16 04:45 [place] Rings Not Reportable 05/13/16 04:45 [place] Cells Not Reportable 05/13/16 04:45 Bite Cells Not Reportable 05/13/16 04:45 Crenated Cell Not Reportable 05/13/16 04:45 Elliptocytes Not Reportable 05/13/16 04:45 Acanthocytes (Spur) Not Reportable 05/13/16 04:45 Rouleaux Not Reportable 05/13/16 04:45 Hemoglobin C Crystals Not Reportable 05/13/16 04:45 Schistocytes Not Reportable 05/13/16 04:45 Malaria parasites Not Reportable 05/13/16 04:45 Percent Retic 3.68 % (0.78-2.58) H 04/29/16 10:16 Gideon Bodies Not Reportable 05/13/16 04:45 Hem Pathologist Commnt No 05/13/16 04:45 PT 13.8 Sec. (12.2-14.9) 05/12/16 11:01 INR 1.07 (0.87-1.13) 05/12/16 11:01 APTT 27.2 Sec. (24.2-36.6) 05/12/16 11:01 Heparin Anti-Xa Level < 0.10 U.I./ml (0.3-0.7) L 05/13/16 18:06 POC ABG pH 7.491 (7.35-7.45) H 05/16/16 04:29 POC ABG pCO2 33.9 (35-45) L 05/16/16 04:29 POC ABG pO2 88 (80-105) 05/16/16 04:29 POC ABG HCO3 25.9 05/16/16 04:29 POC ABG Total CO2 27 05/16/16 04:29 POC ABG O2 Sat 98 05/16/16 04:29 POC ABG Base Excess 3 05/16/16 04:29 VBG pH 7.418 (7.320-7.420) 03/24/16 14:00 FiO2 25 % 05/16/16 04:29 Sodium 141 mmol/L (137-145) 05/18/16 04:08 Potassium 4.3 mmol/L (3.6-5.0) 05/18/16 04:08 Chloride 104.5 mmol/L (98-107) 05/18/16 04:08 Carbon Dioxide 24 mmol/L (22-30) 05/18/16 04:08 Anion Gap 17 mmol/L 05/18/16 04:08 BUN 21 mg/dL (9-20) H 05/18/16 04:08 Creatinine 0.5 mg/dL (0.8-1.5) L 05/18/16 04:08 Estimated GFR > 60 ml/min 05/18/16 04:08 BUN/Creatinine Ratio 42.00 % 05/18/16 04:08 Glucose 136 mg/dL (75-100) H 05/18/16 04:08 POC Glucose 157 (70-105) H 05/18/16 06:12 Hemoglobin A1c 9.6 % (4-6) H 03/24/16 14:00 Lactic Acid 1.6 mmol/L (0.7-2.0) 04/17/16 12:17 Calcium 8.4 mg/dL (8.4-10.2) 05/18/16 04:08 Phosphorus 3.1 mg/dL (2.5-4.5) 05/11/16 04:16 Magnesium 2.3 mg/dL (1.7-2.3) 05/11/16 04:16 Iron 10 ug/dL (49-181) L 04/29/16 10:16 TIBC 138 mcg/dL (250-450) L 04/29/16 10:16 Ferritin 336.4 ng/mL (13.0-400.0) 04/29/16 10:16 Total Bilirubin < 0.2 mg/dL (0.1-1.2) 04/27/16 04:21 AST 18 units/L (5-40) 04/27/16 04:21 ALT 39 units/L (7-56) 04/27/16 04:21 Alkaline Phosphatase 103 units/L (35-129) 04/27/16 04:21 Lactate Dehydrogenase 204 units/L (91-180) H 04/29/16 10:16 Total Creatine Kinase 356 units/L (55-170) H 03/28/16 13:29 Troponin T < 0.010 ng/mL (0.00-0.029) 03/28/16 13:29 NT-Pro-B Natriuret Pep 897.9 pg/mL (0-900) 04/03/16 04:10 Serum Total Protein 7.1 g/dL (6.1-8.1) 03/25/16 13:00 Total Protein 6.0 g/dL (6.3-8.2) L 04/27/16 04:21 Albumin 2.0 g/dL (3.9-5) L 04/27/16 04:21 Albumin/Globulin Ratio 0.5 % 04/27/16 04:21 Mofdt-9-[id number] See scanned report 03/31/16 12:20 Mloat-3-Sfmrhnylb See scanned report 03/31/16 12:20 Beta Globulins See scanned report 03/31/16 12:20 Iizc-3-Gwpqrunbwngkz 2.46 mg/L (<=2.51) 03/25/16 13:00 Gamma Globulins See scanned report 03/31/16 12:20 Abnorm Protein Band 1 see below (()) 03/25/16 13:00 PEP Interpretation See scanned report 03/31/16 12:20 Triglycerides 88 mg/dL (2-149) 03/24/16 17:58 Cholesterol 221 mg/dL (50-199) H 03/24/16 17:58 LDL Cholesterol Direct 146 mg/dL (50-130) H 03/24/16 17:58 HDL Cholesterol 58 mg/dL (40-59) 03/24/16 17:58 Cholesterol/HDL Ratio 3.81 % 03/24/16 17:58 Vitamin B12 1005 pg/mL (211-911) H 04/29/16 10:16 Folate 12.78 ng/mL (7.3-26.0) 04/29/16 10:16 Urine Color Yellow (Yellow) 05/04/16 10:20 Urine Turbidity Cloudy (Clear) 05/04/16 10:20 Urine pH 5.0 (5.0-7.0) 05/04/16 10:20 Ur Specific [place] 1.017 (1.003-1.030) 05/04/16 10:20 Urine Protein 100 mg/dl mg/dL (Negative) 05/04/16 10:20 Urine Glucose (UA) >=500 mg/dL (Negative) 05/04/16 10:20 Urine Ketones Neg mg/dL (Negative) 05/04/16 10:20 Urine Blood Sm (Negative) 05/04/16 10:20 Urine Nitrite Neg (Negative) 05/04/16 10:20 Urine Bilirubin Neg (Negative) 05/04/16 10:20 Urine Urobilinogen 2.0 mg/dL (<2.0) 05/04/16 10:20 Ur Leukocyte Esterase Lg (Negative) 05/04/16 10:20 Urine WBC (Auto) > 182.0 /HPF (0.0-6.0) H 05/04/16 10:20 Urine RBC (Auto) 13.0 /HPF (0.0-6.0) 05/04/16 10:20 U Epithel Cells (Auto) < 1.0 /HPF (0-13.0) 05/04/16 10:20 Urine Bacteria (Auto) 1+ /HPF (Negative) 05/04/16 10:20 Urine WBC Clumps 3+ /HPF 05/04/16 10:20 Hyaline Casts 1 /LPF 03/24/16 14:27 Urine Mucus Few /HPF 05/04/16 10:20 Urine Yeast (Budding) 1+ /HPF 05/04/16 10:20 Ur Random Creatinine See scanned report 03/31/16 12:20 U Random Total Protein See scanned report 03/31/16 12:20 Urine Creatinine 85.5 mg/dL (0.1-20.0) H 04/20/16 11:50 Protein/Creatinin Ratio See scanned report 03/31/16 12:20 Urine Sodium 17 mEq/L 04/20/16 11:50 U Abnormal Prot Band 1 See scanned report 03/31/16 12:20 U Abnormal Prot Band 2 See scanned report 03/31/16 12:20 U Abnormal Prot Band 3 See scanned report 03/31/16 12:20 Ketones 1.0 mg/dL (0.2-2.8) 03/24/16 14:00 Blood Type A POSITIVE 05/09/16 19:47 Antibody Screen Negative 05/09/16 19:47 Crossmatch See Detail 05/09/16 19:47
[2016-05-18] MEDS: ZESTRIL PO SCH ×2 (10:26→21:27)
[2016-05-18] MEDS: CORDARONE PO SCH (10:26)
[2016-05-18] MEDS: KEPPRA PO SCH ×2 (10:28→21:29)
[2016-05-18] MEDS: LEVEMIR SUB-Q SCH (10:28)
[2016-05-18] MEDS: NORVASC PO SCH (10:31)
[2016-05-18] MEDS: PEPCID PO SCH ×2 (10:31→21:29)
[2016-05-18] MEDS: NORMODYNE PO SCH ×3 (11:10→20:12)
--- NOTE | 2016-05-18 12:05 | Progress Note ---
Assessment and Plan 61 y/o male with acute encephalopathy, secondary to embolic strokes, now with acute respiratory failure requiring re-intubation. 1. Will transfer to floor to remain on T-piece 2. Patient had bleeding last week around trach site. Now recommended that anticoagulation be held indefinitely. Currently heparin is off. No further bleeding and tolerating T-piece 3. Follow up with CM in regards to funding. Subjective Date of service: 05/18/16 Principal diagnosis: CVA, acute respiratory failure Interval history: No acute events. Tolerated T-Piece all night with no issues. No family at bedside. Objective Vital Signs - 12hr 05/18/16 05/18/16 05/18/16 01:00 01:20 01:46 Temperature Pulse Rate 81 84 Pulse Rate [ Apical] Pulse Rate [ 77 Bilateral] Pulse Rate [ From Monitor] Respiratory 22 28 H Rate Respiratory 21 Rate [Bilateral ] Blood Pressure 122/82 122/82 O2 Sat by Pulse 100 Oximetry O2 Sat by Pulse Oximetry [ Assessment] 05/18/16 05/18/16 05/18/16 02:00 02:01 02:58 Temperature Pulse Rate 76 77 Pulse Rate [ Apical] Pulse Rate [ 79 Bilateral] Pulse Rate [ From Monitor] Respiratory 22 23 Rate Respiratory 21 Rate [Bilateral ] Blood Pressure 126/79 126/79 O2 Sat by Pulse 99 100 Oximetry O2 Sat by Pulse Oximetry [ Assessment] 05/18/16 05/18/16 05/18/16 03:00 04:00 05:00 Temperature 98.9 F Pulse Rate 76 79 83 Pulse Rate [ 82 Apical] Pulse Rate [ Bilateral] Pulse Rate [ 82 From Monitor] Respiratory 22 23 23 Rate Respiratory Rate [Bilateral ] Blood Pressure 137/80 139/82 123/77 O2 Sat by Pulse 99 99 100 Oximetry O2 Sat by Pulse Oximetry [ Assessment] 05/18/16 05/18/16 05/18/16 06:00 06:02 07:00 Temperature Pulse Rate 87 87 89 Pulse Rate [ Apical] Pulse Rate [ Bilateral] Pulse Rate [ From Monitor] Respiratory 22 21 23 Rate Respiratory Rate [Bilateral ] Blood Pressure 133/81 133/81 137/85 O2 Sat by Pulse 100 100 100 Oximetry O2 Sat by Pulse Oximetry [ Assessment] 05/18/16 05/18/16 05/18/16 07:44 07:45 07:49 Temperature Pulse Rate Pulse Rate [ Apical] Pulse Rate [ 90 Bilateral] Pulse Rate [ From Monitor] Respiratory Rate Respiratory 23 Rate [Bilateral ] Blood Pressure O2 Sat by Pulse 99 Oximetry O2 Sat by Pulse 99 Oximetry [ Assessment] 05/18/16 05/18/16 05/18/16 08:00 08:38 09:00 Temperature 98.1 F Pulse Rate 90 89 91 H Pulse Rate [ 88 Apical] Pulse Rate [ Bilateral] Pulse Rate [ 88 From Monitor] Respiratory 26 H 24 23 Rate Respiratory Rate [Bilateral ] Blood Pressure 142/86 142/86 152/90 O2 Sat by Pulse Oximetry O2 Sat by Pulse Oximetry [ Assessment] 05/18/16 05/18/16 05/18/16 09:06 10:00 10:26 Temperature Pulse Rate 90 91 H 88 Pulse Rate [ Apical] Pulse Rate [ Bilateral] Pulse Rate [ From Monitor] Respiratory 23 27 H Rate Respiratory Rate [Bilateral ] Blood Pressure 152/90 136/84 136/84 O2 Sat by Pulse 100 Oximetry O2 Sat by Pulse Oximetry [ Assessment] 05/18/16 05/18/16 05/18/16 10:31 11:00 11:10 Temperature Pulse Rate 86 87 86 Pulse Rate [ Apical] Pulse Rate [ Bilateral] Pulse Rate [ From Monitor] Respiratory 24 Rate Respiratory Rate [Bilateral ] Blood Pressure 136/84 145/89 145/89 O2 Sat by Pulse 97 Oximetry O2 Sat by Pulse Oximetry [ Assessment] Constitutional: no acute distress, other (opens eyes, not following commands for me) Eyes: non-icteric ENT: other (tracheotomy) Neck: supple, other (no bleeding at trach site) Effort: normal Ascultation: Bilateral: clear, rhonchi (occasional), other (coarse BS bilaterally) Percussion: Bilateral: not dull Cardiovascular: regular rate and rhythm, murmur noted Gastrointestinal: normoactive bowel sounds, soft, non-tender Extremities: no cyanosis, no edema Neurologic: other (eyes open, not following commands or moving extremities for me) Psychiatric: other (unable to assess) CBC and BMP: 05/18/16 04:08 05/18/16 04:08 ABG, PT/INR, D-dimer: ABG POC ABG pH 7.491 (7.35-7.45) H 05/16/16 04:29 POC ABG pCO2 33.9 (35-45) L 05/16/16 04:29 POC ABG pO2 88 (80-105) 05/16/16 04:29 POC ABG HCO3 25.9 05/16/16 04:29 POC ABG Total CO2 27 05/16/16 04:29 POC ABG O2 Sat 98 05/16/16 04:29 PT/INR, D-dimer PT 13.8 Sec. (12.2-14.9) 05/12/16 11:01 INR 1.07 (0.87-1.13) 05/12/16 11:01 Abnormal lab findings: Abnormal Labs 03/24/16 03/24/16 03/24/16 17:58 20:25 23:23 WBC RBC Hgb Hct MCV MCH MCHC RDW Plt Count Lymph % (Auto) [place] % (Auto) Lymph # [place] # Baso # Seg Neutrophils % Seg Neuts % (Manual) Lymphocytes % (Manual) Monocytes % (Manual) Seg Neutrophils # Seg Neutrophils # Man Lymphocytes # (Manual) Monocytes # (Manual) Basophils # (Manual) Percent Retic PT INR APTT Heparin Anti-Xa Level POC ABG pH POC ABG pCO2 POC ABG pO2 Sodium 169 H* Potassium 3.5 L Chloride 130.3 H Carbon Dioxide BUN 28 H Creatinine 1.8 H Glucose POC Glucose 112 H Calcium Phosphorus Iron TIBC Lactate Dehydrogenase Total Creatine Kinase NT-Pro-B Natriuret Pep Total Protein Albumin Nxmjx-4-Wrwufhikt Apquj-5-Aurvydgfk Beta Globulins PEP Interpretation Cholesterol 221 H LDL Cholesterol Direct 146 H Vitamin B12 Urine WBC (Auto) Urine Creatinine Crossmatch 03/25/16 03/25/16 03/25/16 05:56 05:56 05:56 WBC 21.3 H RBC 6.32 H Hgb 16.7 H Hct 52.7 H MCV 83 L MCH 27 L MCHC RDW Plt Count Lymph % (Auto) [place] % (Auto) Lymph # [place] # Baso # Seg Neutrophils % Seg Neuts % (Manual) 91.0 H Lymphocytes % (Manual) 4.0 L Monocytes % (Manual) Seg Neutrophils # Seg Neutrophils # Man 19.4 H Lymphocytes # (Manual) 0.9 L Monocytes # (Manual) 0.9 H Basophils # (Manual) Percent Retic PT INR APTT Heparin Anti-Xa Level POC ABG pH POC ABG pCO2 POC ABG pO2 Sodium 172 H* Potassium 3.5 L Chloride 130.4 H Carbon Dioxide BUN 29 H Creatinine 1.8 H Glucose 187 H POC Glucose Calcium Phosphorus Iron TIBC Lactate Dehydrogenase 460 H Total Creatine Kinase NT-Pro-B Natriuret Pep Total Protein Albumin Bnqhn-1-Tbhsjtegc Lilxi-3-Onlecdide Beta Globulins PEP Interpretation Cholesterol LDL Cholesterol Direct Vitamin B12 Urine WBC (Auto) Urine Creatinine Crossmatch 03/25/16 03/25/16 03/25/16 07:55 12:19 13:00 WBC RBC Hgb Hct MCV MCH MCHC RDW Plt Count Lymph % (Auto) [place] % (Auto) Lymph # [place] # Baso # Seg Neutrophils % Seg Neuts % (Manual) Lymphocytes % (Manual) Monocytes % (Manual) Seg Neutrophils # Seg Neutrophils # Man Lymphocytes # (Manual) Monocytes # (Manual) Basophils # (Manual) Percent Retic PT INR APTT Heparin Anti-Xa Level POC ABG pH POC ABG pCO2 POC ABG pO2 Sodium Potassium Chloride Carbon Dioxide BUN Creatinine Glucose POC Glucose 231 H 314 H Calcium Phosphorus Iron TIBC Lactate Dehydrogenase Total Creatine Kinase NT-Pro-B Natriuret Pep Total Protein Albumin 3.4 L Siqjp-3-Rqaznaljm 0.4 H Jzymh-3-Hkminfdlc 1.1 H Beta Globulins 0.6 H PEP Interpretation see below H Cholesterol LDL Cholesterol Direct Vitamin B12 Urine WBC (Auto) Urine Creatinine Crossmatch 03/25/16 03/25/16 03/26/16 16:41 22:45 08:32 WBC RBC Hgb Hct MCV MCH MCHC RDW Plt Count Lymph % (Auto) [place] % (Auto) Lymph # [place] # Baso # Seg Neutrophils % Seg Neuts % (Manual) Lymphocytes % (Manual) Monocytes % (Manual) Seg Neutrophils # Seg Neutrophils # Man Lymphocytes # (Manual) Monocytes # (Manual) Basophils # (Manual) Percent Retic PT INR APTT Heparin Anti-Xa Level POC ABG pH POC ABG pCO2 POC ABG pO2 Sodium Potassium Chloride Carbon Dioxide BUN Creatinine Glucose POC Glucose 444 H 326 H 360 H Calcium Phosphorus Iron TIBC Lactate Dehydrogenase Total Creatine Kinase NT-Pro-B Natriuret Pep Total Protein Albumin Ruxnt-4-Rrbghlkmf Ezyls-0-Yqlphbtip Beta Globulins PEP Interpretation Cholesterol LDL Cholesterol Direct Vitamin B12 Urine WBC (Auto) Urine Creatinine Crossmatch 03/26/16 03/26/16 03/26/16 12:38 15:33 15:47 WBC RBC Hgb Hct MCV MCH MCHC RDW Plt Count Lymph % (Auto) [place] % (Auto) Lymph # [place] # Baso # Seg Neutrophils % Seg Neuts % (Manual) Lymphocytes % (Manual) Monocytes % (Manual) Seg Neutrophils # Seg Neutrophils # Man Lymphocytes # (Manual) Monocytes # (Manual) Basophils # (Manual) Percent Retic PT INR APTT Heparin Anti-Xa Level POC ABG pH 7.511 H POC ABG pCO2 26.5 L POC ABG pO2 70 L Sodium Potassium Chloride Carbon Dioxide BUN Creatinine Glucose POC Glucose 280 H 174 H Calcium Phosphorus Iron TIBC Lactate Dehydrogenase Total Creatine Kinase NT-Pro-B Natriuret Pep Total Protein Albumin Nnglg-6-Kmntpopau Azlhs-1-Xusfusikk Beta Globulins PEP Interpretation Cholesterol LDL Cholesterol Direct Vitamin B12 Urine WBC (Auto) Urine Creatinine Crossmatch 03/26/16 03/26/16 03/26/16 16:47 16:47 18:51 WBC 14.0 H RBC 5.17 H Hgb Hct MCV MCH 26 L MCHC 31 L RDW Plt Count 139 L Lymph % (Auto) [place] % (Auto) Lymph # [place] # Baso # Seg Neutrophils % Seg Neuts % (Manual) Lymphocytes % (Manual) Monocytes % (Manual) Seg Neutrophils # Seg Neutrophils # Man Lymphocytes # (Manual) Monocytes # (Manual) Basophils # (Manual) Percent Retic PT INR APTT Heparin Anti-Xa Level POC ABG pH POC ABG pCO2 33.9 L POC ABG pO2 150 H Sodium 164 H* Potassium 3.4 L Chloride 128.5 H Carbon Dioxide BUN 30 H Creatinine 2.2 H Glucose 121 H POC Glucose Calcium 8.1 L Phosphorus Iron TIBC Lactate Dehydrogenase Total Creatine Kinase NT-Pro-B Natriuret Pep Total Protein Albumin Vobck-2-Fhkcwimra Lgtec-2-Ovfxlwrdh Beta Globulins PEP Interpretation Cholesterol LDL Cholesterol Direct Vitamin B12 Urine WBC (Auto) Urine Creatinine Crossmatch 03/27/16 03/27/16 03/27/16 02:19 05:47 06:02 WBC RBC Hgb Hct MCV MCH MCHC RDW Plt Count Lymph % (Auto) [place] % (Auto) Lymph # [place] # Baso # Seg Neutrophils % Seg Neuts % (Manual) Lymphocytes % (Manual) Monocytes % (Manual) Seg Neutrophils # Seg Neutrophils # Man Lymphocytes # (Manual) Monocytes # (Manual) Basophils # (Manual) Percent Retic PT INR APTT Heparin Anti-Xa Level POC ABG pH POC ABG pCO2 27.3 L 30.3 L POC ABG pO2 50 L 112 H Sodium 158 H Potassium Chloride 126.7 H Carbon Dioxide 20 L BUN 25 H Creatinine 1.7 H Glucose POC Glucose Calcium 7.0 L Phosphorus Iron TIBC Lactate Dehydrogenase Total Creatine Kinase NT-Pro-B Natriuret Pep Total Protein Albumin Tmfho-2-Puzwetpyh Hcvyi-8-Ftgkoxidl Beta Globulins PEP Interpretation Cholesterol LDL Cholesterol Direct Vitamin B12 Urine WBC (Auto) Urine Creatinine Crossmatch 03/27/16 03/27/16 03/27/16 07:51 09:20 11:45 WBC 14.2 H RBC Hgb Hct MCV 83 L MCH 27 L MCHC RDW Plt Count 113 L Lymph % (Auto) [place] % (Auto) Lymph # [place] # Baso # Seg Neutrophils % Seg Neuts % (Manual) Lymphocytes % (Manual) Monocytes % (Manual) Seg Neutrophils # Seg Neutrophils # Man Lymphocytes # (Manual) Monocytes # (Manual) Basophils # (Manual) Percent Retic PT INR APTT Heparin Anti-Xa Level POC ABG pH POC ABG pCO2 POC ABG pO2 Sodium Potassium Chloride Carbon Dioxide BUN Creatinine Glucose POC Glucose 124 H 241 H Calcium Phosphorus Iron TIBC Lactate Dehydrogenase Total Creatine Kinase NT-Pro-B Natriuret Pep Total Protein Albumin Ljtsd-4-Ioggupzii Nayuw-5-Vxsyhgghv Beta Globulins PEP Interpretation Cholesterol LDL Cholesterol Direct Vitamin B12 Urine WBC (Auto) Urine Creatinine Crossmatch 03/27/16 03/27/16 03/28/16 16:39 22:03 03:29 WBC RBC Hgb Hct MCV MCH MCHC RDW Plt Count Lymph % (Auto) [place] % (Auto) Lymph # [place] # Baso # Seg Neutrophils % Seg Neuts % (Manual) Lymphocytes % (Manual) Monocytes % (Manual) Seg Neutrophils # Seg Neutrophils # Man Lymphocytes # (Manual) Monocytes # (Manual) Basophils # (Manual) Percent Retic PT INR APTT Heparin Anti-Xa Level POC ABG pH POC ABG pCO2 POC ABG pO2 Sodium Potassium Chloride Carbon Dioxide BUN Creatinine Glucose POC Glucose 266 H 167 H 241 H Calcium Phosphorus Iron TIBC Lactate Dehydrogenase Total Creatine Kinase NT-Pro-B Natriuret Pep Total Protein Albumin Dyjgm-6-Oyczgdadg Pbkrj-6-Ztcyawfqg Beta Globulins PEP Interpretation Cholesterol LDL Cholesterol Direct Vitamin B12 Urine WBC (Auto) Urine Creatinine Crossmatch 03/28/16 03/28/16 03/28/16 05:00 05:00 05:00 WBC RBC Hgb Hct MCV 83 L MCH 27 L MCHC RDW Plt Count 106 L Lymph % (Auto) [place] % (Auto) 10.1 H Lymph # [place] # 1.0 H Baso # Seg Neutrophils % 75.1 H Seg Neuts % (Manual) Lymphocytes % (Manual) Monocytes % (Manual) Seg Neutrophils # Seg Neutrophils # Man Lymphocytes # (Manual) Monocytes # (Manual) Basophils # (Manual) Percent Retic PT INR APTT Heparin Anti-Xa Level POC ABG pH POC ABG pCO2 POC ABG pO2 Sodium 147 H D Potassium 3.1 L D Chloride 112.3 H Carbon Dioxide 21 L BUN Creatinine Glucose 208 H POC Glucose Calcium 7.0 L Phosphorus 2.2 L Iron TIBC Lactate Dehydrogenase Total Creatine Kinase NT-Pro-B Natriuret Pep Total Protein Albumin Ltlnd-1-Jtmyojroj Doamj-5-Rviwrahkw Beta Globulins PEP Interpretation Cholesterol LDL Cholesterol Direct Vitamin B12 Urine WBC (Auto) Urine Creatinine Crossmatch 03/28/16 03/28/16 03/28/16 05:14 08:41 10:56 WBC RBC Hgb Hct MCV MCH MCHC RDW Plt Count Lymph % (Auto) [place] % (Auto) Lymph # [place] # Baso # Seg Neutrophils % Seg Neuts % (Manual) Lymphocytes % (Manual) Monocytes % (Manual) Seg Neutrophils # Seg Neutrophils # Man Lymphocytes # (Manual) Monocytes # (Manual) Basophils # (Manual) Percent Retic PT INR APTT Heparin Anti-Xa Level POC ABG pH 7.457 H POC ABG pCO2 29.7 L 27.7 L POC ABG pO2 Sodium Potassium Chloride Carbon Dioxide BUN Creatinine Glucose POC Glucose 228 H Calcium Phosphorus Iron TIBC Lactate Dehydrogenase Total Creatine Kinase NT-Pro-B Natriuret Pep Total Protein Albumin Tmfqh-8-Dfwzbjtol Ideuy-5-Nklcntsqh Beta Globulins PEP Interpretation Cholesterol LDL Cholesterol Direct Vitamin B12 Urine WBC (Auto) Urine Creatinine Crossmatch 03/28/16 03/28/16 03/28/16 11:37 13:29 16:22 WBC RBC Hgb Hct MCV MCH MCHC RDW Plt Count Lymph % (Auto) [place] % (Auto) Lymph # [place] # Baso # Seg Neutrophils % Seg Neuts % (Manual) Lymphocytes % (Manual) Monocytes % (Manual) Seg Neutrophils # Seg Neutrophils # Man Lymphocytes # (Manual) Monocytes # (Manual) Basophils # (Manual) Percent Retic PT INR APTT Heparin Anti-Xa Level POC ABG pH POC ABG pCO2 POC ABG pO2 Sodium Potassium Chloride Carbon Dioxide BUN Creatinine Glucose POC Glucose 226 H 200 H Calcium Phosphorus Iron TIBC Lactate Dehydrogenase Total Creatine Kinase 356 H NT-Pro-B Natriuret Pep Total Protein Albumin Yyksc-5-Lodjdjudu Zxluv-4-Emfjsdexf Beta Globulins PEP Interpretation Cholesterol LDL Cholesterol Direct Vitamin B12 Urine WBC (Auto) Urine Creatinine Crossmatch 03/28/16 03/29/16 03/29/16 21:48 04:50 04:50 WBC RBC Hgb 11.5 L Hct 35.3 L MCV 81 L MCH 26 L MCHC RDW Plt Count 97 L Lymph % (Auto) [place] % (Auto) 11.7 H Lymph # [place] # 1.1 H Baso # Seg Neutrophils % Seg Neuts % (Manual) Lymphocytes % (Manual) Monocytes % (Manual) Seg Neutrophils # Seg Neutrophils # Man Lymphocytes # (Manual) Monocytes # (Manual) Basophils # (Manual) Percent Retic PT INR APTT Heparin Anti-Xa Level POC ABG pH POC ABG pCO2 POC ABG pO2 Sodium 136 L D Potassium 3.3 L Chloride Carbon Dioxide 20 L BUN Creatinine Glucose 386 H POC Glucose 188 H Calcium 6.8 L Phosphorus 1.6 L D Iron TIBC Lactate Dehydrogenase Total Creatine Kinase NT-Pro-B Natriuret Pep Total Protein Albumin [place]-1-Qzdtpjrhd Yqbkb-5-Vhqrqzvsd Beta Globulins PEP Interpretation Cholesterol LDL Cholesterol Direct Vitamin B12 Urine WBC (Auto) Urine Creatinine Crossmatch 03/29/16 03/29/16 03/29/16 08:10 11:12 16:09 WBC RBC Hgb Hct MCV MCH MCHC RDW Plt Count Lymph % (Auto) [place] % (Auto) Lymph # [place] # Baso # Seg Neutrophils % Seg Neuts % (Manual) Lymphocytes % (Manual) Monocytes % (Manual) Seg Neutrophils # Seg Neutrophils # Man Lymphocytes # (Manual) Monocytes # (Manual) Basophils # (Manual) Percent Retic PT INR APTT Heparin Anti-Xa Level POC ABG pH POC ABG pCO2 POC ABG pO2 Sodium Potassium Chloride Carbon Dioxide BUN Creatinine Glucose POC Glucose 230 H 180 H 46 L Calcium Phosphorus Iron TIBC Lactate Dehydrogenase Total Creatine Kinase NT-Pro-B Natriuret Pep Total Protein Albumin Kmmqv-5-Binrytfxm Izmgk-4-Edjqaqhry Beta Globulins PEP Interpretation Cholesterol LDL Cholesterol Direct Vitamin B12 Urine WBC (Auto) Urine Creatinine Crossmatch 03/29/16 03/29/16 03/30/16 16:12 18:15 02:53 WBC RBC Hgb Hct MCV MCH MCHC RDW Plt Count Lymph % (Auto) [place] % (Auto) Lymph # [place] # Baso # Seg Neutrophils % Seg Neuts % (Manual) Lymphocytes % (Manual) Monocytes % (Manual) Seg Neutrophils # Seg Neutrophils # Man Lymphocytes # (Manual) Monocytes # (Manual) Basophils # (Manual) Percent Retic PT INR APTT Heparin Anti-Xa Level POC ABG pH POC ABG pCO2 POC ABG pO2 Sodium Potassium Chloride Carbon Dioxide BUN Creatinine Glucose POC Glucose 52 L 118 H 130 H Calcium Phosphorus Iron TIBC Lactate Dehydrogenase Total Creatine Kinase NT-Pro-B Natriuret Pep Total Protein Albumin Fyqcb-3-Voibkxctw Afhno-3-Npurbeqku Beta Globulins PEP Interpretation Cholesterol LDL Cholesterol Direct Vitamin B12 Urine WBC (Auto) Urine Creatinine Crossmatch 03/30/16 03/30/16 03/30/16 04:00 04:00 05:29 WBC RBC Hgb Hct MCV 81 L MCH 26 L MCHC RDW Plt Count 116 L Lymph % (Auto) 10.8 L [place] % (Auto) 13.1 H Lymph # 1.0 L [place] # 1.3 H Baso # Seg Neutrophils % 74.2 H Seg Neuts % (Manual) Lymphocytes % (Manual) Monocytes % (Manual) Seg Neutrophils # Seg Neutrophils # Man Lymphocytes # (Manual) Monocytes # (Manual) Basophils # (Manual) Percent Retic PT INR APTT Heparin Anti-Xa Level POC ABG pH 7.522 H POC ABG pCO2 22.7 L POC ABG pO2 137 H Sodium 147 H D Potassium Chloride 115.5 H Carbon Dioxide 20 L BUN Creatinine Glucose 116 H POC Glucose Calcium 7.6 L Phosphorus 2.3 L D Iron TIBC Lactate Dehydrogenase Total Creatine Kinase NT-Pro-B Natriuret Pep Total Protein Albumin Khzkc-0-Zkgyqzqjb Npwgi-2-Ycyssujnu Beta Globulins PEP Interpretation Cholesterol LDL Cholesterol Direct Vitamin B12 Urine WBC (Auto) Urine Creatinine Crossmatch 03/30/16 03/30/16 03/30/16 05:47 08:05 08:59 WBC RBC Hgb Hct MCV MCH MCHC RDW Plt Count Lymph % (Auto) [place] % (Auto) Lymph # [place] # Baso # Seg Neutrophils % Seg Neuts % (Manual) Lymphocytes % (Manual) Monocytes % (Manual) Seg Neutrophils # Seg Neutrophils # Man Lymphocytes # (Manual) Monocytes # (Manual) Basophils # (Manual) Percent Retic PT INR APTT Heparin Anti-Xa Level POC ABG pH POC ABG pCO2 26.2 L POC ABG pO2 115 H Sodium Potassium Chloride Carbon Dioxide BUN Creatinine Glucose POC Glucose 138 H 171 H Calcium Phosphorus Iron TIBC Lactate Dehydrogenase Total Creatine Kinase NT-Pro-B Natriuret Pep Total Protein Albumin [place]-8-Sszjmcrch Zznwd-5-Riniwgtko Beta Globulins PEP Interpretation Cholesterol LDL Cholesterol Direct Vitamin B12 Urine WBC (Auto) Urine Creatinine Crossmatch 03/30/16 03/30/16 03/30/16 12:11 12:11 16:39 WBC RBC Hgb Hct MCV MCH MCHC RDW Plt Count Lymph % (Auto) [place] % (Auto) Lymph # [place] # Baso # Seg Neutrophils % Seg Neuts % (Manual) Lymphocytes % (Manual) Monocytes % (Manual) Seg Neutrophils # Seg Neutrophils # Man Lymphocytes # (Manual) Monocytes # (Manual) Basophils # (Manual) Percent Retic PT INR APTT Heparin Anti-Xa Level POC ABG pH 7.476 H POC ABG pCO2 29.0 L POC ABG pO2 Sodium Potassium Chloride Carbon Dioxide BUN Creatinine Glucose POC Glucose 142 H 59 L Calcium Phosphorus Iron TIBC Lactate Dehydrogenase Total Creatine Kinase NT-Pro-B Natriuret Pep Total Protein Albumin Gmbna-0-Ijhhwgtpg Aqvgz-7-Whiqbasty Beta Globulins PEP Interpretation Cholesterol LDL Cholesterol Direct Vitamin B12 Urine WBC (Auto) Urine Creatinine Crossmatch 03/30/16 03/30/16 03/31/16 18:41 21:59 05:02 WBC RBC Hgb Hct MCV MCH MCHC RDW Plt Count Lymph % (Auto) [place] % (Auto) Lymph # [place] # Baso # Seg Neutrophils % Seg Neuts % (Manual) Lymphocytes % (Manual) Monocytes % (Manual) Seg Neutrophils # Seg Neutrophils # Man Lymphocytes # (Manual) Monocytes # (Manual) Basophils # (Manual) Percent Retic PT INR APTT Heparin Anti-Xa Level POC ABG pH 7.519 H POC ABG pCO2 21.8 L POC ABG pO2 142 H Sodium Potassium Chloride Carbon Dioxide BUN Creatinine Glucose POC Glucose 145 H 154 H Calcium Phosphorus Iron TIBC Lactate Dehydrogenase Total Creatine Kinase NT-Pro-B Natriuret Pep Total Protein Albumin Jlphg-3-Fmzutdawd Umdam-7-Qexquezal Beta Globulins PEP Interpretation Cholesterol LDL Cholesterol Direct Vitamin B12 Urine WBC (Auto) Urine Creatinine Crossmatch 03/31/16 03/31/16 03/31/16 05:15 05:15 05:15 WBC 13.4 H RBC 5.21 H Hgb Hct MCV 81 L MCH 26 L MCHC RDW Plt Count Lymph % (Auto) 9.5 L [place] % (Auto) 14.0 H Lymph # [place] # 1.9 H Baso # Seg Neutrophils % 75.0 H Seg Neuts % (Manual) Lymphocytes % (Manual) Monocytes % (Manual) Seg Neutrophils # 10.1 H Seg Neutrophils # Man Lymphocytes # (Manual) Monocytes # (Manual) Basophils # (Manual) Percent Retic PT INR APTT Heparin Anti-Xa Level POC ABG pH POC ABG pCO2 POC ABG pO2 Sodium Potassium Chloride 108.5 H Carbon Dioxide 19 L BUN Creatinine Glucose 188 H POC Glucose Calcium Phosphorus Iron TIBC Lactate Dehydrogenase Total Creatine Kinase NT-Pro-B Natriuret Pep 1089 H Total Protein Albumin Pvxhi-6-Ogouypvea Winvb-2-Tuyihwahq Beta Globulins PEP Interpretation Cholesterol LDL Cholesterol Direct Vitamin B12 Urine WBC (Auto) Urine Creatinine Crossmatch 03/31/16 03/31/16 03/31/16 07:23 11:12 15:20 WBC RBC Hgb Hct MCV MCH MCHC RDW Plt Count Lymph % (Auto) [place] % (Auto) Lymph # [place] # Baso # Seg Neutrophils % Seg Neuts % (Manual) Lymphocytes % (Manual) Monocytes % (Manual) Seg Neutrophils # Seg Neutrophils # Man Lymphocytes # (Manual) Monocytes # (Manual) Basophils # (Manual) Percent Retic PT INR APTT Heparin Anti-Xa Level POC ABG pH POC ABG pCO2 POC ABG pO2 Sodium Potassium Chloride Carbon Dioxide BUN Creatinine Glucose POC Glucose 233 H 228 H 208 H Calcium Phosphorus Iron TIBC Lactate Dehydrogenase Total Creatine Kinase NT-Pro-B Natriuret Pep Total Protein Albumin [place]-6-Obrscrskl Hjrth-0-Egarhkyen Beta Globulins PEP Interpretation Cholesterol LDL Cholesterol Direct Vitamin B12 Urine WBC (Auto) Urine Creatinine Crossmatch 03/31/16 04/01/16 04/01/16 21:27 04:41 05:35 WBC 12.1 H RBC Hgb Hct MCV 81 L MCH 26 L MCHC RDW Plt Count Lymph % (Auto) 8.5 L [place] % (Auto) 14.0 H Lymph # 1.0 L [place] # 1.7 H Baso # Seg Neutrophils % 76.2 H Seg Neuts % (Manual) Lymphocytes % (Manual) Monocytes % (Manual) Seg Neutrophils # 9.2 H Seg Neutrophils # Man Lymphocytes # (Manual) Monocytes # (Manual) Basophils # (Manual) Percent Retic PT INR APTT Heparin Anti-Xa Level POC ABG pH 7.455 H POC ABG pCO2 31.0 L POC ABG pO2 Sodium Potassium Chloride Carbon Dioxide BUN Creatinine Glucose POC Glucose 162 H Calcium Phosphorus Iron TIBC Lactate Dehydrogenase Total Creatine Kinase NT-Pro-B Natriuret Pep Total Protein Albumin Rmbxz-1-Toknhsoom Iqzjw-9-Yyerfexbl Beta Globulins PEP Interpretation Cholesterol LDL Cholesterol Direct Vitamin B12 Urine WBC (Auto) Urine Creatinine Crossmatch 04/01/16 04/01/16 04/01/16 05:35 08:44 12:49 WBC RBC Hgb Hct MCV MCH MCHC RDW Plt Count Lymph % (Auto) [place] % (Auto) Lymph # [place] # Baso # Seg Neutrophils % Seg Neuts % (Manual) Lymphocytes % (Manual) Monocytes % (Manual) Seg Neutrophils # Seg Neutrophils # Man Lymphocytes # (Manual) Monocytes # (Manual) Basophils # (Manual) Percent Retic PT INR APTT Heparin Anti-Xa Level POC ABG pH POC ABG pCO2 POC ABG pO2 Sodium Potassium Chloride Carbon Dioxide BUN Creatinine Glucose 256 H POC Glucose 257 H 279 H Calcium 8.0 L Phosphorus Iron TIBC Lactate Dehydrogenase Total Creatine Kinase NT-Pro-B Natriuret Pep 1205 H Total Protein Albumin Bcpxs-2-Nwilivwkv Zxkju-9-Ubtpgzczb Beta Globulins PEP Interpretation Cholesterol LDL Cholesterol Direct Vitamin B12 Urine WBC (Auto) Urine Creatinine Crossmatch 04/01/16 04/02/16 04/02/16 18:12 00:42 04:17 WBC RBC Hgb Hct MCV MCH MCHC RDW Plt Count Lymph % (Auto) [place] % (Auto) Lymph # [place] # Baso # Seg Neutrophils % Seg Neuts % (Manual) Lymphocytes % (Manual) Monocytes % (Manual) Seg Neutrophils # Seg Neutrophils # Man Lymphocytes # (Manual) Monocytes # (Manual) Basophils # (Manual) Percent Retic PT INR APTT Heparin Anti-Xa Level POC ABG pH 7.582 H POC ABG pCO2 26.8 L POC ABG pO2 Sodium Potassium Chloride Carbon Dioxide BUN Creatinine Glucose POC Glucose 168 H 282 H Calcium Phosphorus Iron TIBC Lactate Dehydrogenase Total Creatine Kinase NT-Pro-B Natriuret Pep Total Protein Albumin [id number] [id number] Beta Globulins PEP Interpretation Cholesterol LDL Cholesterol Direct Vitamin B12 Urine WBC (Auto) Urine Creatinine Crossmatch 04/02/16 04/02/16 04/02/16 05:00 05:00 06:27 WBC 12.4 H RBC Hgb Hct MCV 81 L MCH 26 L MCHC RDW Plt Count Lymph % (Auto) 6.4 L [place] % (Auto) 13.3 H Lymph # 0.8 L [place] # 1.7 H Baso # Seg Neutrophils % 79.4 H Seg Neuts % (Manual) Lymphocytes % (Manual) Monocytes % (Manual) Seg Neutrophils # 9.9 H Seg Neutrophils # Man Lymphocytes # (Manual) Monocytes # (Manual) Basophils # (Manual) Percent Retic PT INR APTT Heparin Anti-Xa Level POC ABG pH POC ABG pCO2 POC ABG pO2 Sodium 146 H Potassium Chloride Carbon Dioxide BUN Creatinine Glucose 334 H POC Glucose 317 H Calcium 8.0 L Phosphorus Iron TIBC Lactate Dehydrogenase Total Creatine Kinase NT-Pro-B Natriuret Pep Total Protein Albumin Sdwsy-3-Mimbnglqe Lahie-8-Xthlongcx Beta Globulins PEP Interpretation Cholesterol LDL Cholesterol Direct Vitamin B12 Urine WBC (Auto) Urine Creatinine Crossmatch 04/02/16 04/02/16 04/02/16 11:51 13:10 17:24 WBC RBC Hgb Hct MCV MCH MCHC RDW Plt Count Lymph % (Auto) [place] % (Auto) Lymph # [place] # Baso # Seg Neutrophils % Seg Neuts % (Manual) Lymphocytes % (Manual) Monocytes % (Manual) Seg Neutrophils # Seg Neutrophils # Man Lymphocytes # (Manual) Monocytes # (Manual) Basophils # (Manual) Percent Retic PT INR APTT Heparin Anti-Xa Level POC ABG pH 7.518 H POC ABG pCO2 POC ABG pO2 Sodium Potassium Chloride Carbon Dioxide BUN Creatinine Glucose POC Glucose 278 H 195 H Calcium Phosphorus Iron TIBC Lactate Dehydrogenase Total Creatine Kinase NT-Pro-B Natriuret Pep Total Protein Albumin Dmsic-9-Lacgtuetl Mtkym-8-Msusubenb Beta Globulins PEP Interpretation Cholesterol LDL Cholesterol Direct Vitamin B12 Urine WBC (Auto) Urine Creatinine Crossmatch 04/03/16 04/03/16 04/03/16 00:18 04:10 04:10 WBC 14.3 H RBC Hgb Hct MCV 81 L MCH 26 L MCHC RDW Plt Count Lymph % (Auto) 9.0 L [place] % (Auto) 10.7 H Lymph # [place] # 1.5 H Baso # 0.2 H Seg Neutrophils % 78.5 H Seg Neuts % (Manual) Lymphocytes % (Manual) Monocytes % (Manual) Seg Neutrophils # 11.3 H Seg Neutrophils # Man Lymphocytes # (Manual) Monocytes # (Manual) Basophils # (Manual) Percent Retic PT INR APTT Heparin Anti-Xa Level POC ABG pH POC ABG pCO2 POC ABG pO2 Sodium 148 H Potassium Chloride 108.1 H Carbon Dioxide BUN 21 H Creatinine Glucose 227 H POC Glucose 144 H Calcium 8.2 L Phosphorus Iron TIBC Lactate Dehydrogenase Total Creatine Kinase NT-Pro-B Natriuret Pep Total Protein Albumin Bszqw-4-Qexikrszu Xytqe-1-Xcrdvbulk Beta Globulins PEP Interpretation Cholesterol LDL Cholesterol Direct Vitamin B12 Urine WBC (Auto) Urine Creatinine Crossmatch 04/03/16 04/03/16 04/04/16 11:14 17:10 04:00 WBC 14.5 H RBC Hgb Hct MCV 81 L MCH 26 L MCHC RDW Plt Count Lymph % (Auto) 7.2 L [place] % (Auto) 7.6 H Lymph # 1.0 L [place] # 1.1 H Baso # Seg Neutrophils % 84.5 H Seg Neuts % (Manual) Lymphocytes % (Manual) Monocytes % (Manual) Seg Neutrophils # 12.3 H Seg Neutrophils # Man Lymphocytes # (Manual) Monocytes # (Manual) Basophils # (Manual) Percent Retic PT INR APTT Heparin Anti-Xa Level POC ABG pH POC ABG pCO2 POC ABG pO2 Sodium Potassium Chloride Carbon Dioxide BUN Creatinine Glucose POC Glucose 267 H 212 H Calcium Phosphorus Iron TIBC Lactate Dehydrogenase Total Creatine Kinase NT-Pro-B Natriuret Pep Total Protein Albumin Ephsl-8-Vbkcmffio Oldxe-4-Rpwvuyiat Beta Globulins PEP Interpretation Cholesterol LDL Cholesterol Direct Vitamin B12 Urine WBC (Auto) Urine Creatinine Crossmatch 04/04/16 04/04/16 04/04/16 05:00 09:55 09:55 WBC RBC Hgb 11.5 L Hct MCV MCH MCHC RDW Plt Count Lymph % (Auto) [place] % (Auto) Lymph # [place] # Baso # Seg Neutrophils % Seg Neuts % (Manual) Lymphocytes % (Manual) Monocytes % (Manual) Seg Neutrophils # Seg Neutrophils # Man Lymphocytes # (Manual) Monocytes # (Manual) Basophils # (Manual) Percent Retic PT INR APTT 42.1 H Heparin Anti-Xa Level POC ABG pH POC ABG pCO2 POC ABG pO2 Sodium 146 H Potassium Chloride Carbon Dioxide BUN 22 H Creatinine Glucose 128 H POC Glucose Calcium Phosphorus Iron TIBC Lactate Dehydrogenase Total Creatine Kinase NT-Pro-B Natriuret Pep Total Protein Albumin Tvowe-9-Imcsflubx Orsyz-4-Vzbbbposg Beta Globulins PEP Interpretation Cholesterol LDL Cholesterol Direct Vitamin B12 Urine WBC (Auto) Urine Creatinine Crossmatch 04/04/16 04/04/16 04/04/16 11:45 17:49 17:55 WBC RBC Hgb Hct MCV MCH MCHC RDW Plt Count Lymph % (Auto) [place] % (Auto) Lymph # [place] # Baso # Seg Neutrophils % Seg Neuts % (Manual) Lymphocytes % (Manual) Monocytes % (Manual) Seg Neutrophils # Seg Neutrophils # Man Lymphocytes # (Manual) Monocytes # (Manual) Basophils # (Manual) Percent Retic PT INR APTT Heparin Anti-Xa Level 1.19 H POC ABG pH POC ABG pCO2 POC ABG pO2 Sodium Potassium Chloride Carbon Dioxide BUN Creatinine Glucose POC Glucose 231 H 186 H Calcium Phosphorus Iron TIBC Lactate Dehydrogenase Total Creatine Kinase NT-Pro-B Natriuret Pep Total Protein Albumin Rsihg-3-Caghwkcje Jkyti-6-Fiwfpfvmp Beta Globulins PEP Interpretation Cholesterol LDL Cholesterol Direct Vitamin B12 Urine WBC (Auto) Urine Creatinine Crossmatch 04/05/16 04/05/16 04/05/16 00:35 05:32 05:42 WBC RBC Hgb Hct MCV MCH MCHC RDW Plt Count Lymph % (Auto) [place] % (Auto) Lymph # [place] # Baso # Seg Neutrophils % Seg Neuts % (Manual) Lymphocytes % (Manual) Monocytes % (Manual) Seg Neutrophils # Seg Neutrophils # Man Lymphocytes # (Manual) Monocytes # (Manual) Basophils # (Manual) Percent Retic PT INR APTT Heparin Anti-Xa Level POC ABG pH 7.491 H POC ABG pCO2 POC ABG pO2 Sodium Potassium Chloride Carbon Dioxide BUN Creatinine Glucose POC Glucose 192 H 242 H Calcium Phosphorus Iron TIBC Lactate Dehydrogenase Total Creatine Kinase NT-Pro-B Natriuret Pep Total Protein Albumin Qvizh-0-Gmqslpcor Jwuud-7-Ucsakaeyp Beta Globulins PEP Interpretation Cholesterol LDL Cholesterol Direct Vitamin B12 Urine WBC (Auto) Urine Creatinine Crossmatch 04/05/16 04/05/16 04/05/16 06:20 06:20 12:19 WBC 13.9 H RBC Hgb 11.6 L Hct MCV 81 L MCH 26 L MCHC RDW Plt Count Lymph % (Auto) 9.6 L [place] % (Auto) 8.7 H Lymph # [place] # 1.2 H Baso # Seg Neutrophils % 80.9 H Seg Neuts % (Manual) Lymphocytes % (Manual) Monocytes % (Manual) Seg Neutrophils # 11.3 H Seg Neutrophils # Man Lymphocytes # (Manual) Monocytes # (Manual) Basophils # (Manual) Percent Retic PT INR APTT Heparin Anti-Xa Level POC ABG pH POC ABG pCO2 POC ABG pO2 Sodium 148 H Potassium Chloride Carbon Dioxide BUN 23 H Creatinine Glucose 242 H POC Glucose 187 H Calcium Phosphorus Iron TIBC Lactate Dehydrogenase Total Creatine Kinase NT-Pro-B Natriuret Pep Total Protein Albumin Tqexx-5-Biefnljkr Yfnfr-7-Wkscnyvbb Beta Globulins PEP Interpretation Cholesterol LDL Cholesterol Direct Vitamin B12 Urine WBC (Auto) Urine Creatinine Crossmatch 04/05/16 04/05/16 04/06/16 17:10 23:45 05:23 WBC 13.0 H RBC Hgb Hct MCV 82 L MCH 26 L MCHC 31 L RDW Plt Count Lymph % (Auto) 6.7 L [place] % (Auto) 8.3 H Lymph # 0.9 L [place] # 1.1 H Baso # Seg Neutrophils % 84.6 H Seg Neuts % (Manual) Lymphocytes % (Manual) Monocytes % (Manual) Seg Neutrophils # 11.0 H Seg Neutrophils # Man Lymphocytes # (Manual) Monocytes # (Manual) Basophils # (Manual) Percent Retic PT INR APTT Heparin Anti-Xa Level POC ABG pH POC ABG pCO2 POC ABG pO2 Sodium Potassium Chloride Carbon Dioxide BUN Creatinine Glucose POC Glucose 169 H 202 H Calcium Phosphorus Iron TIBC Lactate Dehydrogenase Total Creatine Kinase NT-Pro-B Natriuret Pep Total Protein Albumin Ikoac-2-Rgjxzlzfd Xxkvq-6-Vgbljncva Beta Globulins PEP Interpretation Cholesterol LDL Cholesterol Direct Vitamin B12 Urine WBC (Auto) Urine Creatinine Crossmatch 04/06/16 04/06/16 04/06/16 05:23 05:23 06:11 WBC RBC Hgb Hct MCV MCH MCHC RDW Plt Count Lymph % (Auto) [place] % (Auto) Lymph # [place] # Baso # Seg Neutrophils % Seg Neuts % (Manual) Lymphocytes % (Manual) Monocytes % (Manual) Seg Neutrophils # Seg Neutrophils # Man Lymphocytes # (Manual) Monocytes # (Manual) Basophils # (Manual) Percent Retic PT INR APTT Heparin Anti-Xa Level 0.21 L POC ABG pH POC ABG pCO2 POC ABG pO2 Sodium 153 H Potassium Chloride 111.3 H Carbon Dioxide BUN 22 H Creatinine Glucose 62 L POC Glucose 56 L Calcium Phosphorus Iron TIBC Lactate Dehydrogenase Total Creatine Kinase NT-Pro-B Natriuret Pep Total Protein Albumin Plecy-8-Ebmzutohf Nahtg-4-Dmyntwbph Beta Globulins PEP Interpretation Cholesterol LDL Cholesterol Direct Vitamin B12 Urine WBC (Auto) Urine Creatinine Crossmatch 04/06/16 04/06/16 04/06/16 06:52 11:36 14:58 WBC RBC Hgb Hct MCV MCH MCHC RDW Plt Count Lymph % (Auto) [place] % (Auto) Lymph # [place] # Baso # Seg Neutrophils % Seg Neuts % (Manual) Lymphocytes % (Manual) Monocytes % (Manual) Seg Neutrophils # Seg Neutrophils # Man Lymphocytes # (Manual) Monocytes # (Manual) Basophils # (Manual) Percent Retic PT INR APTT Heparin Anti-Xa Level POC ABG pH POC ABG pCO2 POC ABG pO2 Sodium Potassium Chloride Carbon Dioxide BUN Creatinine Glucose POC Glucose 206 H 139 H 147 H Calcium Phosphorus Iron TIBC Lactate Dehydrogenase Total Creatine Kinase NT-Pro-B Natriuret Pep Total Protein Albumin Bhqhv-3-Rwhzwojxp Cmruj-1-Ujzaruejh Beta Globulins PEP Interpretation Cholesterol LDL Cholesterol Direct Vitamin B12 Urine WBC (Auto) Urine Creatinine Crossmatch 04/06/16 04/06/16 04/06/16 16:03 21:18 23:53 WBC RBC Hgb Hct MCV MCH MCHC RDW Plt Count Lymph % (Auto) [place] % (Auto) Lymph # [place] # Baso # Seg Neutrophils % Seg Neuts % (Manual) Lymphocytes % (Manual) Monocytes % (Manual) Seg Neutrophils # Seg Neutrophils # Man Lymphocytes # (Manual) Monocytes # (Manual) Basophils # (Manual) Percent Retic PT INR APTT Heparin Anti-Xa Level POC ABG pH POC ABG pCO2 POC ABG pO2 Sodium Potassium Chloride Carbon Dioxide BUN Creatinine Glucose POC Glucose 154 H 293 H 301 H Calcium Phosphorus Iron TIBC Lactate Dehydrogenase Total Creatine Kinase NT-Pro-B Natriuret Pep Total Protein Albumin Ufsyo-9-Jaueaqpyx Qrrox-9-Wkhohpufg Beta Globulins PEP Interpretation Cholesterol LDL Cholesterol Direct Vitamin B12 Urine WBC (Auto) Urine Creatinine Crossmatch 04/07/16 04/07/16 04/07/16 02:30 05:11 05:11 WBC 12.5 H RBC Hgb 11.5 L Hct MCV 82 L MCH 26 L MCHC 31 L RDW Plt Count Lymph % (Auto) [place] % (Auto) Lymph # [place] # Baso # Seg Neutrophils % Seg Neuts % (Manual) Lymphocytes % (Manual) Monocytes % (Manual) Seg Neutrophils # Seg Neutrophils # Man Lymphocytes # (Manual) Monocytes # (Manual) Basophils # (Manual) Percent Retic PT INR APTT Heparin Anti-Xa Level 0.11 L POC ABG pH POC ABG pCO2 POC ABG pO2 Sodium 150 H Potassium Chloride 109.5 H Carbon Dioxide BUN 28 H Creatinine Glucose 264 H POC Glucose Calcium Phosphorus Iron TIBC Lactate Dehydrogenase Total Creatine Kinase NT-Pro-B Natriuret Pep Total Protein Albumin Kvthz-2-Yduszblwf Cvqoh-2-Lqiovenoq Beta Globulins PEP Interpretation Cholesterol LDL Cholesterol Direct Vitamin B12 Urine WBC (Auto) Urine Creatinine Crossmatch 04/07/16 04/07/16 04/07/16 06:46 10:18 11:50 WBC RBC Hgb Hct MCV MCH MCHC RDW Plt Count Lymph % (Auto) [place] % (Auto) Lymph # [place] # Baso # Seg Neutrophils % Seg Neuts % (Manual) Lymphocytes % (Manual) Monocytes % (Manual) Seg Neutrophils # Seg Neutrophils # Man Lymphocytes # (Manual) Monocytes # (Manual) Basophils # (Manual) Percent Retic PT 15.1 H INR 1.20 H APTT Heparin Anti-Xa Level POC ABG pH POC ABG pCO2 POC ABG pO2 Sodium Potassium Chloride Carbon Dioxide BUN Creatinine Glucose POC Glucose 259 H 288 H Calcium Phosphorus Iron TIBC Lactate Dehydrogenase Total Creatine Kinase NT-Pro-B Natriuret Pep Total Protein Albumin Beckn-7-Rvibupxaj Lndeq-7-Hgrgsznuu Beta Globulins PEP Interpretation Cholesterol LDL Cholesterol Direct Vitamin B12 Urine WBC (Auto) Urine Creatinine Crossmatch 04/07/16 04/08/16 04/08/16 17:58 01:25 06:49 WBC RBC Hgb Hct MCV MCH MCHC RDW Plt Count Lymph % (Auto) [place] % (Auto) Lymph # [place] # Baso # Seg Neutrophils % Seg Neuts % (Manual) Lymphocytes % (Manual) Monocytes % (Manual) Seg Neutrophils # Seg Neutrophils # Man Lymphocytes # (Manual) Monocytes # (Manual) Basophils # (Manual) Percent Retic PT INR APTT Heparin Anti-Xa Level POC ABG pH POC ABG pCO2 POC ABG pO2 Sodium 156 H Potassium Chloride 114.7 H Carbon Dioxide BUN 33 H Creatinine Glucose 169 H POC Glucose 330 H 146 H Calcium Phosphorus Iron TIBC Lactate Dehydrogenase Total Creatine Kinase NT-Pro-B Natriuret Pep Total Protein Albumin Shvxn-2-Oxexiglwi Rvkjq-1-Prfbertyn Beta Globulins PEP Interpretation Cholesterol LDL Cholesterol Direct Vitamin B12 Urine WBC (Auto) Urine Creatinine Crossmatch 04/08/16 04/08/16 04/08/16 07:34 10:28 10:28 WBC RBC Hgb Hct MCV MCH MCHC RDW Plt Count Lymph % (Auto) [place] % (Auto) Lymph # [place] # Baso # Seg Neutrophils % Seg Neuts % (Manual) Lymphocytes % (Manual) Monocytes % (Manual) Seg Neutrophils # Seg Neutrophils # Man Lymphocytes # (Manual) Monocytes # (Manual) Basophils # (Manual) Percent Retic PT 15.5 H INR 1.24 H APTT Heparin Anti-Xa Level 0.24 L POC ABG pH POC ABG pCO2 POC ABG pO2 Sodium Potassium Chloride Carbon Dioxide BUN Creatinine Glucose POC Glucose 232 H Calcium Phosphorus Iron TIBC Lactate Dehydrogenase Total Creatine Kinase NT-Pro-B Natriuret Pep Total Protein Albumin Joksj-4-Oxiaimcbh Suzaq-6-Tvxxudrug Beta Globulins PEP Interpretation Cholesterol LDL Cholesterol Direct Vitamin B12 Urine WBC (Auto) Urine Creatinine Crossmatch 04/08/16 04/08/16 04/09/16 11:36 15:38 00:01 WBC RBC Hgb Hct MCV MCH MCHC RDW Plt Count Lymph % (Auto) [place] % (Auto) Lymph # [place] # Baso # Seg Neutrophils % Seg Neuts % (Manual) Lymphocytes % (Manual) Monocytes % (Manual) Seg Neutrophils # Seg Neutrophils # Man Lymphocytes # (Manual) Monocytes # (Manual) Basophils # (Manual) Percent Retic PT INR APTT Heparin Anti-Xa Level POC ABG pH POC ABG pCO2 POC ABG pO2 Sodium Potassium Chloride Carbon Dioxide BUN Creatinine Glucose POC Glucose 193 H 163 H 180 H Calcium Phosphorus Iron TIBC Lactate Dehydrogenase Total Creatine Kinase NT-Pro-B Natriuret Pep Total Protein Albumin Idpuw-8-Bplhcqucz Utflr-5-Uucklkzev Beta Globulins PEP Interpretation Cholesterol LDL Cholesterol Direct Vitamin B12 Urine WBC (Auto) Urine Creatinine Crossmatch 04/09/16 04/09/16 04/09/16 06:17 06:42 06:42 WBC RBC Hgb Hct MCV MCH MCHC RDW Plt Count Lymph % (Auto) [place] % (Auto) Lymph # [place] # Baso # Seg Neutrophils % Seg Neuts % (Manual) Lymphocytes % (Manual) Monocytes % (Manual) Seg Neutrophils # Seg Neutrophils # Man Lymphocytes # (Manual) Monocytes # (Manual) Basophils # (Manual) Percent Retic PT 17.4 H INR 1.43 H APTT Heparin Anti-Xa Level POC ABG pH POC ABG pCO2 POC ABG pO2 Sodium 153 H Potassium Chloride 113.2 H Carbon Dioxide BUN 29 H Creatinine Glucose 301 H POC Glucose 249 H Calcium 8.3 L Phosphorus Iron TIBC Lactate Dehydrogenase Total Creatine Kinase NT-Pro-B Natriuret Pep Total Protein Albumin Snujd-0-Mzwcndksn Wzvfv-4-Sylczilog Beta Globulins PEP Interpretation Cholesterol LDL Cholesterol Direct Vitamin B12 Urine WBC (Auto) Urine Creatinine Crossmatch 04/09/16 04/09/16 04/09/16 07:37 11:26 15:45 WBC RBC Hgb Hct MCV MCH MCHC RDW Plt Count Lymph % (Auto) [place] % (Auto) Lymph # [place] # Baso # Seg Neutrophils % Seg Neuts % (Manual) Lymphocytes % (Manual) Monocytes % (Manual) Seg Neutrophils # Seg Neutrophils # Man Lymphocytes # (Manual) Monocytes # (Manual) Basophils # (Manual) Percent Retic PT INR APTT Heparin Anti-Xa Level POC ABG pH POC ABG pCO2 POC ABG pO2 Sodium Potassium Chloride Carbon Dioxide BUN Creatinine Glucose POC Glucose 283 H 306 H 354 H Calcium Phosphorus Iron TIBC Lactate Dehydrogenase Total Creatine Kinase NT-Pro-B Natriuret Pep Total Protein Albumin Quctu-1-Eqincldea Rylto-4-Hprmvmfce Beta Globulins PEP Interpretation Cholesterol LDL Cholesterol Direct Vitamin B12 Urine WBC (Auto) Urine Creatinine Crossmatch 04/10/16 04/10/16 04/10/16 00:53 07:15 07:34 WBC RBC Hgb 11.3 L Hct MCV MCH MCHC RDW Plt Count Lymph % (Auto) [place] % (Auto) Lymph # [place] # Baso # Seg Neutrophils % Seg Neuts % (Manual) Lymphocytes % (Manual) Monocytes % (Manual) Seg Neutrophils # Seg Neutrophils # Man Lymphocytes # (Manual) Monocytes # (Manual) Basophils # (Manual) Percent Retic PT INR APTT Heparin Anti-Xa Level POC ABG pH POC ABG pCO2 POC ABG pO2 Sodium Potassium Chloride Carbon Dioxide BUN Creatinine Glucose POC Glucose 323 H 311 H Calcium Phosphorus Iron TIBC Lactate Dehydrogenase Total Creatine Kinase NT-Pro-B Natriuret Pep Total Protein Albumin Mehep-9-Cliaimynz Siear-4-Dimkuxwis Beta Globulins PEP Interpretation Cholesterol LDL Cholesterol Direct Vitamin B12 Urine WBC (Auto) Urine Creatinine Crossmatch 04/10/16 04/10/16 04/10/16 07:34 07:34 11:25 WBC RBC Hgb Hct MCV MCH MCHC RDW Plt Count Lymph % (Auto) [place] % (Auto) Lymph # [place] # Baso # Seg Neutrophils % Seg Neuts % (Manual) Lymphocytes % (Manual) Monocytes % (Manual) Seg Neutrophils # Seg Neutrophils # Man Lymphocytes # (Manual) Monocytes # (Manual) Basophils # (Manual) Percent Retic PT 17.3 H INR 1.42 H APTT Heparin Anti-Xa Level POC ABG pH POC ABG pCO2 POC ABG pO2 Sodium 158 H Potassium Chloride 118.6 H Carbon Dioxide BUN 30 H Creatinine Glucose 330 H POC Glucose 335 H Calcium 8.3 L Phosphorus Iron TIBC Lactate Dehydrogenase Total Creatine Kinase NT-Pro-B Natriuret Pep Total Protein Albumin Alkbe-3-Tsoylvuku Mtksu-3-Ltupocsiv Beta Globulins PEP Interpretation Cholesterol LDL Cholesterol Direct Vitamin B12 Urine WBC (Auto) Urine Creatinine Crossmatch 04/10/16 04/11/16 04/11/16 16:21 00:29 07:47 WBC RBC Hgb Hct MCV MCH MCHC RDW Plt Count Lymph % (Auto) [place] % (Auto) Lymph # [place] # Baso # Seg Neutrophils % Seg Neuts % (Manual) Lymphocytes % (Manual) Monocytes % (Manual) Seg Neutrophils # Seg Neutrophils # Man Lymphocytes # (Manual) Monocytes # (Manual) Basophils # (Manual) Percent Retic PT 18.4 H INR 1.53 H APTT Heparin Anti-Xa Level POC ABG pH POC ABG pCO2 POC ABG pO2 Sodium Potassium Chloride Carbon Dioxide BUN Creatinine Glucose POC Glucose 230 H 162 H Calcium Phosphorus Iron TIBC Lactate Dehydrogenase Total Creatine Kinase NT-Pro-B Natriuret Pep Total Protein Albumin Cxwru-0-Wmorhxwhm Ihjas-8-Qjijgabph Beta Globulins PEP Interpretation Cholesterol LDL Cholesterol Direct Vitamin B12 Urine WBC (Auto) Urine Creatinine Crossmatch 04/11/16 04/11/16 04/12/16 07:47 11:22 04:54 WBC RBC Hgb 11.0 L Hct 35.0 L MCV MCH MCHC RDW Plt Count Lymph % (Auto) [place] % (Auto) Lymph # [place] # Baso # Seg Neutrophils % Seg Neuts % (Manual) Lymphocytes % (Manual) Monocytes % (Manual) Seg Neutrophils # Seg Neutrophils # Man Lymphocytes # (Manual) Monocytes # (Manual) Basophils # (Manual) Percent Retic PT INR APTT Heparin Anti-Xa Level POC ABG pH POC ABG pCO2 POC ABG pO2 Sodium 155 H Potassium Chloride 114.5 H Carbon Dioxide BUN 23 H Creatinine Glucose 157 H POC Glucose 229 H Calcium Phosphorus Iron TIBC Lactate Dehydrogenase Total Creatine Kinase NT-Pro-B Natriuret Pep Total Protein Albumin Bfzpi-7-Npvjzvgjr Oxaku-8-Jzdgixlza Beta Globulins PEP Interpretation Cholesterol LDL Cholesterol Direct Vitamin B12 Urine WBC (Auto) Urine Creatinine Crossmatch 04/12/16 04/12/16 04/12/16 04:54 04:54 05:57 WBC RBC Hgb Hct MCV MCH MCHC RDW Plt Count Lymph % (Auto) [place] % (Auto) Lymph # [place] # Baso # Seg Neutrophils % Seg Neuts % (Manual) Lymphocytes % (Manual) Monocytes % (Manual) Seg Neutrophils # Seg Neutrophils # Man Lymphocytes # (Manual) Monocytes # (Manual) Basophils # (Manual) Percent Retic PT 22.5 H INR 1.98 H APTT Heparin Anti-Xa Level 0.19 L POC ABG pH POC ABG pCO2 POC ABG pO2 Sodium 156 H Potassium Chloride 115.4 H Carbon Dioxide BUN 23 H Creatinine Glucose 143 H POC Glucose 194 H Calcium Phosphorus Iron TIBC Lactate Dehydrogenase Total Creatine Kinase NT-Pro-B Natriuret Pep Total Protein Albumin Rkyzt-9-Ffhqpaljn Fzxia-6-Oushlokng Beta Globulins PEP Interpretation Cholesterol LDL Cholesterol Direct Vitamin B12 Urine WBC (Auto) Urine Creatinine Crossmatch 04/12/16 04/12/16 04/12/16 12:34 19:01 23:30 WBC RBC Hgb Hct MCV MCH MCHC RDW Plt Count Lymph % (Auto) [place] % (Auto) Lymph # [place] # Baso # Seg Neutrophils % Seg Neuts % (Manual) Lymphocytes % (Manual) Monocytes % (Manual) Seg Neutrophils # Seg Neutrophils # Man Lymphocytes # (Manual) Monocytes # (Manual) Basophils # (Manual) Percent Retic PT INR APTT Heparin Anti-Xa Level POC ABG pH POC ABG pCO2 POC ABG pO2 Sodium Potassium Chloride Carbon Dioxide BUN Creatinine Glucose POC Glucose 291 H 235 H 154 H Calcium Phosphorus Iron TIBC Lactate Dehydrogenase Total Creatine Kinase NT-Pro-B Natriuret Pep Total Protein Albumin Uxvug-6-Atxfvpnss Szihj-4-Vxxxiqoay Beta Globulins PEP Interpretation Cholesterol LDL Cholesterol Direct Vitamin B12 Urine WBC (Auto) Urine Creatinine Crossmatch 04/13/16 04/13/16 04/13/16 05:16 05:16 05:28 WBC RBC Hgb Hct MCV MCH MCHC RDW Plt Count Lymph % (Auto) [place] % (Auto) Lymph # [place] # Baso # Seg Neutrophils % Seg Neuts % (Manual) Lymphocytes % (Manual) Monocytes % (Manual) Seg Neutrophils # Seg Neutrophils # Man Lymphocytes # (Manual) Monocytes # (Manual) Basophils # (Manual) Percent Retic PT 27.0 H INR 2.49 H APTT Heparin Anti-Xa Level 0.20 L POC ABG pH POC ABG pCO2 POC ABG pO2 Sodium 150 H Potassium Chloride 110.5 H Carbon Dioxide BUN 21 H Creatinine Glucose 159 H POC Glucose 177 H Calcium Phosphorus Iron TIBC Lactate Dehydrogenase Total Creatine Kinase NT-Pro-B Natriuret Pep Total Protein Albumin Ywkiw-1-Qxkxevvac Ulagw-7-Rihhbhkoa Beta Globulins PEP Interpretation Cholesterol LDL Cholesterol Direct Vitamin B12 Urine WBC (Auto) Urine Creatinine Crossmatch 04/13/16 04/13/16 04/14/16 11:30 17:54 00:44 WBC RBC Hgb Hct MCV MCH MCHC RDW Plt Count Lymph % (Auto) [place] % (Auto) Lymph # [place] # Baso # Seg Neutrophils % Seg Neuts % (Manual) Lymphocytes % (Manual) Monocytes % (Manual) Seg Neutrophils # Seg Neutrophils # Man Lymphocytes # (Manual) Monocytes # (Manual) Basophils # (Manual) Percent Retic PT INR APTT Heparin Anti-Xa Level POC ABG pH POC ABG pCO2 POC ABG pO2 Sodium Potassium Chloride Carbon Dioxide BUN Creatinine Glucose POC Glucose 181 H 251 H 237 H Calcium Phosphorus Iron TIBC Lactate Dehydrogenase Total Creatine Kinase NT-Pro-B Natriuret Pep Total Protein Albumin Escpd-6-Pcdgfysfb Tflkz-8-Ssekwjaap Beta Globulins PEP Interpretation Cholesterol LDL Cholesterol Direct Vitamin B12 Urine WBC (Auto) Urine Creatinine Crossmatch 04/14/16 04/14/16 04/14/16 05:00 05:42 05:42 WBC RBC Hgb Hct MCV MCH MCHC RDW Plt Count Lymph % (Auto) [place] % (Auto) Lymph # [place] # Baso # Seg Neutrophils % Seg Neuts % (Manual) Lymphocytes % (Manual) Monocytes % (Manual) Seg Neutrophils # Seg Neutrophils # Man Lymphocytes # (Manual) Monocytes # (Manual) Basophils # (Manual) Percent Retic PT 30.3 H INR 2.88 H APTT Heparin Anti-Xa Level 0.27 L POC ABG pH POC ABG pCO2 POC ABG pO2 Sodium Potassium 3.5 L Chloride Carbon Dioxide BUN Creatinine Glucose 160 H POC Glucose Calcium 8.2 L Phosphorus Iron TIBC Lactate Dehydrogenase Total Creatine Kinase NT-Pro-B Natriuret Pep Total Protein Albumin Vpmnl-5-Jsdhavxdf Kbfhu-2-Mwptjyfte Beta Globulins PEP Interpretation Cholesterol LDL Cholesterol Direct Vitamin B12 Urine WBC (Auto) Urine Creatinine Crossmatch 04/14/16 04/14/16 04/14/16 06:02 06:16 09:18 WBC 12.3 H RBC Hgb 11.4 L Hct MCV 82 L MCH 26 L MCHC RDW Plt Count Lymph % (Auto) [place] % (Auto) Lymph # [place] # Baso # Seg Neutrophils % Seg Neuts % (Manual) Lymphocytes % (Manual) Monocytes % (Manual) Seg Neutrophils # Seg Neutrophils # Man Lymphocytes # (Manual) Monocytes # (Manual) Basophils # (Manual) Percent Retic PT INR APTT Heparin Anti-Xa Level POC ABG pH POC ABG pCO2 POC ABG pO2 Sodium Potassium Chloride Carbon Dioxide BUN Creatinine Glucose POC Glucose 156 H 164 H Calcium Phosphorus Iron TIBC Lactate Dehydrogenase Total Creatine Kinase NT-Pro-B Natriuret Pep Total Protein Albumin Hrnrx-1-Hcpamyuej Mkglo-5-Ttnzyqpju Beta Globulins PEP Interpretation Cholesterol LDL Cholesterol Direct Vitamin B12 Urine WBC (Auto) Urine Creatinine Crossmatch 04/14/16 04/15/16 04/15/16 13:58 01:07 06:04 WBC RBC Hgb Hct MCV MCH MCHC RDW Plt Count Lymph % (Auto) [place] % (Auto) Lymph # [place] # Baso # Seg Neutrophils % Seg Neuts % (Manual) Lymphocytes % (Manual) Monocytes % (Manual) Seg Neutrophils # Seg Neutrophils # Man Lymphocytes # (Manual) Monocytes # (Manual) Basophils # (Manual) Percent Retic PT 24.9 H INR 2.25 H APTT Heparin Anti-Xa Level POC ABG pH POC ABG pCO2 POC ABG pO2 Sodium Potassium Chloride Carbon Dioxide BUN Creatinine Glucose POC Glucose 109 H 154 H Calcium Phosphorus Iron TIBC Lactate Dehydrogenase Total Creatine Kinase NT-Pro-B Natriuret Pep Total Protein Albumin Mdjpw-9-Bvwttrzms Fibje-8-Uchqemstl Beta Globulins PEP Interpretation Cholesterol LDL Cholesterol Direct Vitamin B12 Urine WBC (Auto) Urine Creatinine Crossmatch 04/15/16 04/15/16 04/16/16 06:08 12:41 00:38 WBC RBC Hgb Hct MCV MCH MCHC RDW Plt Count Lymph % (Auto) [place] % (Auto) Lymph # [place] # Baso # Seg Neutrophils % Seg Neuts % (Manual) Lymphocytes % (Manual) Monocytes % (Manual) Seg Neutrophils # Seg Neutrophils # Man Lymphocytes # (Manual) Monocytes # (Manual) Basophils # (Manual) Percent Retic PT INR APTT Heparin Anti-Xa Level POC ABG pH POC ABG pCO2 POC ABG pO2 Sodium Potassium Chloride Carbon Dioxide BUN Creatinine Glucose POC Glucose 165 H 223 H 216 H Calcium Phosphorus Iron TIBC Lactate Dehydrogenase Total Creatine Kinase NT-Pro-B Natriuret Pep Total Protein Albumin Qevib-8-Arfwcsejq Ylfoh-6-Iuqchqezw Beta Globulins PEP Interpretation Cholesterol LDL Cholesterol Direct Vitamin B12 Urine WBC (Auto) Urine Creatinine Crossmatch 04/16/16 04/16/16 04/16/16 05:45 07:09 14:00 WBC RBC Hgb Hct MCV MCH MCHC RDW Plt Count Lymph % (Auto) [place] % (Auto) Lymph # [place] # Baso # Seg Neutrophils % Seg Neuts % (Manual) Lymphocytes % (Manual) Monocytes % (Manual) Seg Neutrophils # Seg Neutrophils # Man Lymphocytes # (Manual) Monocytes # (Manual) Basophils # (Manual) Percent Retic PT 19.4 H INR 1.64 H APTT Heparin Anti-Xa Level 0.10 L POC ABG pH POC ABG pCO2 POC ABG pO2 Sodium Potassium Chloride Carbon Dioxide BUN Creatinine Glucose POC Glucose 207 H 69 L Calcium Phosphorus Iron TIBC Lactate Dehydrogenase Total Creatine Kinase NT-Pro-B Natriuret Pep Total Protein Albumin [place]-3-Fibxkbpir Qfikv-1-Zcxuoubvj Beta Globulins PEP Interpretation Cholesterol LDL Cholesterol Direct Vitamin B12 Urine WBC (Auto) Urine Creatinine Crossmatch 04/16/16 04/16/16 04/16/16 17:40 17:52 19:38 WBC RBC Hgb Hct MCV MCH MCHC RDW Plt Count Lymph % (Auto) [place] % (Auto) Lymph # [place] # Baso # Seg Neutrophils % Seg Neuts % (Manual) Lymphocytes % (Manual) Monocytes % (Manual) Seg Neutrophils # Seg Neutrophils # Man Lymphocytes # (Manual) Monocytes # (Manual) Basophils # (Manual) Percent Retic PT INR APTT Heparin Anti-Xa Level 0.26 L POC ABG pH 7.543 H 7.488 H POC ABG pCO2 26.3 L 30.3 L POC ABG pO2 55 L 203 H Sodium Potassium Chloride Carbon Dioxide BUN Creatinine Glucose POC Glucose Calcium Phosphorus Iron TIBC Lactate Dehydrogenase Total Creatine Kinase NT-Pro-B Natriuret Pep Total Protein Albumin Mequu-0-Vlthnqqdw Xhbya-5-[place] Beta Globulins PEP Interpretation Cholesterol LDL Cholesterol Direct Vitamin B12 Urine WBC (Auto) Urine Creatinine Crossmatch 04/17/16 04/17/16 04/17/16 00:04 05:10 05:36 WBC RBC Hgb Hct MCV MCH MCHC RDW Plt Count Lymph % (Auto) [place] % (Auto) Lymph # [place] # Baso # Seg Neutrophils % Seg Neuts % (Manual) Lymphocytes % (Manual) Monocytes % (Manual) Seg Neutrophils # Seg Neutrophils # Man Lymphocytes # (Manual) Monocytes # (Manual) Basophils # (Manual) Percent Retic PT INR APTT Heparin Anti-Xa Level POC ABG pH POC ABG pCO2 32.7 L POC ABG pO2 68 L Sodium Potassium Chloride Carbon Dioxide BUN Creatinine Glucose POC Glucose 113 H 161 H Calcium Phosphorus Iron TIBC Lactate Dehydrogenase Total Creatine Kinase NT-Pro-B Natriuret Pep Total Protein Albumin Eyxzx-1-Ujonsgfmu Mrvxo-8-Vwhtdlkvc Beta Globulins PEP Interpretation Cholesterol LDL Cholesterol Direct Vitamin B12 Urine WBC (Auto) Urine Creatinine Crossmatch 04/17/16 04/17/16 04/17/16 05:41 08:37 11:46 WBC RBC Hgb Hct MCV MCH MCHC RDW Plt Count Lymph % (Auto) [place] % (Auto) Lymph # [place] # Baso # Seg Neutrophils % Seg Neuts % (Manual) Lymphocytes % (Manual) Monocytes % (Manual) Seg Neutrophils # Seg Neutrophils # Man Lymphocytes # (Manual) Monocytes # (Manual) Basophils # (Manual) Percent Retic PT 17.4 H INR 1.43 H APTT Heparin Anti-Xa Level POC ABG pH POC ABG pCO2 POC ABG pO2 Sodium Potassium Chloride Carbon Dioxide BUN Creatinine Glucose POC Glucose 154 H 138 H Calcium Phosphorus Iron TIBC Lactate Dehydrogenase Total Creatine Kinase NT-Pro-B Natriuret Pep Total Protein Albumin Jstfg-4-[place] Btrdm-6-Uwvvlhgkp Beta Globulins PEP Interpretation Cholesterol LDL Cholesterol Direct Vitamin B12 Urine WBC (Auto) Urine Creatinine Crossmatch 04/17/16 04/17/16 04/17/16 12: 12:17 21:20 WBC 16.5 H RBC 3.31 L Hgb 8.8 L Hct 26.9 L MCV 81 L MCH 27 L MCHC RDW 15.5 H Plt Count Lymph % (Auto) [place] % (Auto) Lymph # [place] # Baso # Seg Neutrophils % Seg Neuts % (Manual) Lymphocytes % (Manual) 3.0 L Monocytes % (Manual) Seg Neutrophils # Seg Neutrophils # Man 10.1 H Lymphocytes # (Manual) 0.5 L Monocytes # (Manual) Basophils # (Manual) Percent Retic PT INR APTT Heparin Anti-Xa Level 0.14 L POC ABG pH POC ABG pCO2 POC ABG pO2 Sodium Potassium Chloride Carbon Dioxide 21 L BUN 38 H Creatinine 1.8 H D Glucose 131 H POC Glucose Calcium 7.6 L Phosphorus Iron TIBC Lactate Dehydrogenase Total Creatine Kinase NT-Pro-B Natriuret Pep Total Protein Albumin Haaum-0-Hewtjzmla Oesae-5-Akleicdje Beta Globulins PEP Interpretation Cholesterol LDL Cholesterol Direct Vitamin B12 Urine WBC (Auto) Urine Creatinine Crossmatch 04/17/16 04/17/16 04/18/16 23:38 23:41 00:21 WBC RBC Hgb Hct MCV MCH MCHC RDW Plt Count Lymph % (Auto) [place] % (Auto) Lymph # [place] # Baso # Seg Neutrophils % Seg Neuts % (Manual) Lymphocytes % (Manual) Monocytes % (Manual) Seg Neutrophils # Seg Neutrophils # Man Lymphocytes # (Manual) Monocytes # (Manual) Basophils # (Manual) Percent Retic PT INR APTT Heparin Anti-Xa Level POC ABG pH POC ABG pCO2 POC ABG pO2 Sodium Potassium Chloride Carbon Dioxide BUN Creatinine Glucose POC Glucose < 40 L < 40 L 223 H Calcium Phosphorus Iron TIBC Lactate Dehydrogenase Total Creatine Kinase NT-Pro-B Natriuret Pep Total Protein Albumin Vesxt-1-Wbfsswwsz Luqtm-0-Eqsstfeaa Beta Globulins PEP Interpretation Cholesterol LDL Cholesterol Direct Vitamin B12 Urine WBC (Auto) Urine Creatinine Crossmatch 04/18/16 04/18/16 04/18/16 05:01 05:20 05:20 WBC 17.6 H RBC 3.44 L Hgb 9.1 L Hct 27.8 L MCV 81 L MCH 26 L MCHC RDW 15.5 H Plt Count Lymph % (Auto) 2.7 L [place] % (Auto) 8.3 H Lymph # 0.5 L [place] # 1.5 H Baso # Seg Neutrophils % 88.4 H Seg Neuts % (Manual) Lymphocytes % (Manual) Monocytes % (Manual) Seg Neutrophils # 15.6 H Seg Neutrophils # Man Lymphocytes # (Manual) Monocytes # (Manual) Basophils # (Manual) Percent Retic PT 17.4 H INR 1.43 H APTT Heparin Anti-Xa Level POC ABG pH 7.528 H POC ABG pCO2 27.9 L POC ABG pO2 Sodium Potassium Chloride Carbon Dioxide BUN Creatinine Glucose POC Glucose Calcium Phosphorus Iron TIBC Lactate Dehydrogenase Total Creatine Kinase NT-Pro-B Natriuret Pep Total Protein Albumin Xnddd-4-Hglphxvqv Rglrr-8-Tdmnybial Beta Globulins PEP Interpretation Cholesterol LDL Cholesterol Direct Vitamin B12 Urine WBC (Auto) Urine Creatinine Crossmatch 04/18/16 04/18/16 04/18/16 05:20 05:31 06:50 WBC RBC Hgb Hct MCV MCH MCHC RDW Plt Count Lymph % (Auto) [place] % (Auto) Lymph # [place] # Baso # Seg Neutrophils % Seg Neuts % (Manual) Lymphocytes % (Manual) Monocytes % (Manual) Seg Neutrophils # Seg Neutrophils # Man Lymphocytes # (Manual) Monocytes # (Manual) Basophils # (Manual) Percent Retic PT INR APTT Heparin Anti-Xa Level POC ABG pH POC ABG pCO2 POC ABG pO2 Sodium Potassium 3.4 L Chloride Carbon Dioxide 21 L BUN 22 H Creatinine Glucose POC Glucose 61 L 124 H Calcium 8.0 L Phosphorus Iron TIBC Lactate Dehydrogenase Total Creatine Kinase NT-Pro-B Natriuret Pep Total Protein Albumin Zqlpc-0-Licprlwyt Mnsah-5-Hwnzbeloe Beta Globulins PEP Interpretation Cholesterol LDL Cholesterol Direct Vitamin B12 Urine WBC (Auto) Urine Creatinine Crossmatch 04/18/16 04/18/16 04/19/16 17:42 22:40 00:31 WBC RBC Hgb Hct MCV MCH MCHC RDW Plt Count Lymph % (Auto) [place] % (Auto) Lymph # [place] # Baso # Seg Neutrophils % Seg Neuts % (Manual) Lymphocytes % (Manual) Monocytes % (Manual) Seg Neutrophils # Seg Neutrophils # Man Lymphocytes # (Manual) Monocytes # (Manual) Basophils # (Manual) Percent Retic PT INR APTT Heparin Anti-Xa Level < 0.10 L POC ABG pH POC ABG pCO2 POC ABG pO2 Sodium Potassium Chloride Carbon Dioxide BUN Creatinine Glucose POC Glucose 159 H 134 H Calcium Phosphorus Iron TIBC Lactate Dehydrogenase Total Creatine Kinase NT-Pro-B Natriuret Pep Total Protein Albumin Pipne-7-Iiurcvntt Bigvv-6-Vpzzcezep Beta Globulins PEP Interpretation Cholesterol LDL Cholesterol Direct Vitamin B12 Urine WBC (Auto) Urine Creatinine Crossmatch 04/19/16 04/19/16 04/19/16 04:18 04:18 04:25 WBC 19.0 H RBC 3.58 L Hgb 9.3 L Hct 28.8 L MCV 80 L MCH 26 L MCHC RDW 15.5 H Plt Count Lymph % (Auto) 2.8 L [place] % (Auto) 7.4 H Lymph # 0.5 L [place] # 1.4 H Baso # Seg Neutrophils % 89.4 H Seg Neuts % (Manual) Lymphocytes % (Manual) Monocytes % (Manual) Seg Neutrophils # 17.0 H Seg Neutrophils # Man Lymphocytes # (Manual) Monocytes # (Manual) Basophils # (Manual) Percent Retic PT INR APTT Heparin Anti-Xa Level POC ABG pH 7.527 H POC ABG pCO2 27.1 L POC ABG pO2 Sodium Potassium Chloride Carbon Dioxide BUN 22 H Creatinine Glucose 215 H POC Glucose Calcium 8.0 L Phosphorus Iron TIBC Lactate Dehydrogenase Total Creatine Kinase NT-Pro-B Natriuret Pep Total Protein Albumin Tidjc-2-Ogbpfwtok [place]-6-Qctgtvtkj Beta Globulins PEP Interpretation Cholesterol LDL Cholesterol Direct Vitamin B12 Urine WBC (Auto) Urine Creatinine Crossmatch 04/19/16 04/19/16 04/19/16 05:45 08:10 14:08 WBC RBC Hgb Hct MCV MCH MCHC RDW Plt Count Lymph % (Auto) [place] % (Auto) Lymph # [place] # Baso # Seg Neutrophils % Seg Neuts % (Manual) Lymphocytes % (Manual) Monocytes % (Manual) Seg Neutrophils # Seg Neutrophils # Man Lymphocytes # (Manual) Monocytes # (Manual) Basophils # (Manual) Percent Retic PT 22.1 H INR 1.93 H APTT Heparin Anti-Xa Level 0.17 L POC ABG pH POC ABG pCO2 POC ABG pO2 Sodium Potassium Chloride Carbon Dioxide BUN Creatinine Glucose POC Glucose 196 H 318 H Calcium Phosphorus Iron TIBC Lactate Dehydrogenase Total Creatine Kinase NT-Pro-B Natriuret Pep Total Protein Albumin Vwkex-6-Tusdrwyaj Npunm-3-Wfolwqouk Beta Globulins PEP Interpretation Cholesterol LDL Cholesterol Direct Vitamin B12 Urine WBC (Auto) Urine Creatinine Crossmatch 04/19/16 04/20/16 04/20/16 17:27 03:55 03:55 WBC 18.5 H RBC 3.19 L Hgb 8.4 L Hct 25.7 L MCV 80 L MCH 26 L MCHC RDW 15.9 H Plt Count Lymph % (Auto) 4.3 L [place] % (Auto) 10.1 H Lymph # 0.8 L [place] # 1.9 H Baso # Seg Neutrophils % 85.2 H Seg Neuts % (Manual) Lymphocytes % (Manual) Monocytes % (Manual) Seg Neutrophils # 15.8 H Seg Neutrophils # Man Lymphocytes # (Manual) Monocytes # (Manual) Basophils # (Manual) Percent Retic PT 22.0 H INR 1.92 H APTT Heparin Anti-Xa Level 0.14 L POC ABG pH POC ABG pCO2 POC ABG pO2 Sodium Potassium Chloride Carbon Dioxide BUN Creatinine Glucose POC Glucose 230 H Calcium Phosphorus Iron TIBC Lactate Dehydrogenase Total Creatine Kinase NT-Pro-B Natriuret Pep Total Protein Albumin Zwlhc-1-Jnbhrpemj Bllre-9-Nlpjrsuun Beta Globulins PEP Interpretation Cholesterol LDL Cholesterol Direct Vitamin B12 Urine WBC (Auto) Urine Creatinine Crossmatch 04/20/16 04/20/16 04/20/16 03:55 04:16 05:52 WBC RBC Hgb Hct MCV MCH MCHC RDW Plt Count Lymph % (Auto) [place] % (Auto) Lymph # [place] # Baso # Seg Neutrophils % Seg Neuts % (Manual) Lymphocytes % (Manual) Monocytes % (Manual) Seg Neutrophils # Seg Neutrophils # Man Lymphocytes # (Manual) Monocytes # (Manual) Basophils # (Manual) Percent Retic PT INR APTT Heparin Anti-Xa Level POC ABG pH 7.474 H POC ABG pCO2 26.5 L POC ABG pO2 Sodium Potassium Chloride Carbon Dioxide 18 L BUN 38 H Creatinine 2.7 H D Glucose 159 H POC Glucose 214 H Calcium 8.0 L Phosphorus Iron TIBC Lactate Dehydrogenase Total Creatine Kinase NT-Pro-B Natriuret Pep Total Protein Albumin Ttsyn-6-Cltvohavv Qtysc-1-Lkrnfmoex Beta Globulins PEP Interpretation Cholesterol LDL Cholesterol Direct Vitamin B12 Urine WBC (Auto) Urine Creatinine Crossmatch 04/20/16 04/20/16 04/20/16 10:32 11:27 11:50 WBC RBC Hgb Hct MCV MCH MCHC RDW Plt Count Lymph % (Auto) [place] % (Auto) Lymph # [place] # Baso # Seg Neutrophils % Seg Neuts % (Manual) Lymphocytes % (Manual) Monocytes % (Manual) Seg Neutrophils # Seg Neutrophils # Man Lymphocytes # (Manual) Monocytes # (Manual) Basophils # (Manual) Percent Retic PT INR APTT Heparin Anti-Xa Level POC ABG pH POC ABG pCO2 POC ABG pO2 Sodium Potassium Chloride Carbon Dioxide 20 L BUN 45 H Creatinine 3.0 H Glucose 215 H POC Glucose 248 H Calcium 8.0 L Phosphorus Iron TIBC Lactate Dehydrogenase Total Creatine Kinase NT-Pro-B Natriuret Pep Total Protein Albumin Uncpz-7-Iwruocnav Zggab-6-Zuwugmwhp Beta Globulins PEP Interpretation Cholesterol LDL Cholesterol Direct Vitamin B12 Urine WBC (Auto) Urine Creatinine 85.5 H Crossmatch 04/20/16 04/21/16 04/21/16 16:59 00:13 04:29 WBC RBC Hgb Hct MCV MCH MCHC RDW Plt Count Lymph % (Auto) [place] % (Auto) Lymph # [place] # Baso # Seg Neutrophils % Seg Neuts % (Manual) Lymphocytes % (Manual) Monocytes % (Manual) Seg Neutrophils # Seg Neutrophils # Man Lymphocytes # (Manual) Monocytes # (Manual) Basophils # (Manual) Percent Retic PT 18.1 H INR 1.50 H APTT Heparin Anti-Xa Level 0.10 L POC ABG pH POC ABG pCO2 POC ABG pO2 Sodium Potassium Chloride Carbon Dioxide BUN Creatinine Glucose POC Glucose 312 H 287 H Calcium Phosphorus Iron TIBC Lactate Dehydrogenase Total Creatine Kinase NT-Pro-B Natriuret Pep Total Protein Albumin Uxbeb-6-Vruyynspz Sixgi-7-Kwvtrogod Beta Globulins PEP Interpretation Cholesterol LDL Cholesterol Direct Vitamin B12 Urine WBC (Auto) Urine Creatinine Crossmatch 04/21/16 04/21/16 04/21/16 04:29 04:29 04:55 WBC 15.4 H RBC 3.24 L Hgb 8.4 L Hct 25.6 L MCV 79 L MCH 26 L MCHC RDW 16.1 H Plt Count Lymph % (Auto) 6.8 L [place] % (Auto) 12.9 H Lymph # 1.0 L [place] # 2.0 H Baso # Seg Neutrophils % 79.8 H Seg Neuts % (Manual) Lymphocytes % (Manual) Monocytes % (Manual) Seg Neutrophils # 12.3 H Seg Neutrophils # Man Lymphocytes # (Manual) Monocytes # (Manual) Basophils # (Manual) Percent Retic PT INR APTT Heparin Anti-Xa Level POC ABG pH 7.512 H POC ABG pCO2 25.4 L POC ABG pO2 Sodium 135 L Potassium Chloride Carbon Dioxide 18 L BUN 57 H Creatinine 3.9 H Glucose 202 H POC Glucose Calcium 8.0 L Phosphorus Iron TIBC Lactate Dehydrogenase Total Creatine Kinase NT-Pro-B Natriuret Pep Total Protein Albumin Rkakm-6-Disqciwds Apfew-2-Vkchtpfai Beta Globulins PEP Interpretation Cholesterol LDL Cholesterol Direct Vitamin B12 Urine WBC (Auto) Urine Creatinine Crossmatch 04/21/16 04/21/16 04/21/16 05:20 12:08 12:16 WBC RBC Hgb Hct MCV MCH MCHC RDW Plt Count Lymph % (Auto) [place] % (Auto) Lymph # [place] # Baso # Seg Neutrophils % Seg Neuts % (Manual) Lymphocytes % (Manual) Monocytes % (Manual) Seg Neutrophils # Seg Neutrophils # Man Lymphocytes # (Manual) Monocytes # (Manual) Basophils # (Manual) Percent Retic PT INR APTT Heparin Anti-Xa Level 0.16 L POC ABG pH POC ABG pCO2 POC ABG pO2 Sodium Potassium Chloride Carbon Dioxide BUN Creatinine Glucose POC Glucose 203 H 221 H Calcium Phosphorus Iron TIBC Lactate Dehydrogenase Total Creatine Kinase NT-Pro-B Natriuret Pep Total Protein Albumin Ureqn-9-Pxvshlqnj Mssyw-1-Btfqepush Beta Globulins PEP Interpretation Cholesterol LDL Cholesterol Direct Vitamin B12 Urine WBC (Auto) Urine Creatinine Crossmatch 04/21/16 04/22/16 04/22/16 17:22 05:01 05:20 WBC RBC Hgb Hct MCV MCH MCHC RDW Plt Count Lymph % (Auto) [place] % (Auto) Lymph # [place] # Baso # Seg Neutrophils % Seg Neuts % (Manual) Lymphocytes % (Manual) Monocytes % (Manual) Seg Neutrophils # Seg Neutrophils # Man Lymphocytes # (Manual) Monocytes # (Manual) Basophils # (Manual) Percent Retic PT 17.5 H INR 1.44 H APTT Heparin Anti-Xa Level POC ABG pH 7.460 H POC ABG pCO2 27.9 L POC ABG pO2 Sodium Potassium Chloride Carbon Dioxide BUN Creatinine Glucose POC Glucose 189 H Calcium Phosphorus Iron TIBC Lactate Dehydrogenase Total Creatine Kinase NT-Pro-B Natriuret Pep Total Protein Albumin Yhruo-1-Xpkwniwur Whyen-6-Onyabptbb Beta Globulins PEP Interpretation Cholesterol LDL Cholesterol Direct Vitamin B12 Urine WBC (Auto) Urine Creatinine Crossmatch 04/22/16 04/22/16 04/22/16 05:43 06:40 08:08 WBC RBC Hgb Hct MCV MCH MCHC RDW Plt Count Lymph % (Auto) [place] % (Auto) Lymph # [place] # Baso # Seg Neutrophils % Seg Neuts % (Manual) Lymphocytes % (Manual) Monocytes % (Manual) Seg Neutrophils # Seg Neutrophils # Man Lymphocytes # (Manual) Monocytes # (Manual) Basophils # (Manual) Percent Retic PT INR APTT Heparin Anti-Xa Level POC ABG pH POC ABG pCO2 POC ABG pO2 Sodium Potassium Chloride Carbon Dioxide BUN Creatinine Glucose POC Glucose 56 L 136 H 134 H Calcium Phosphorus Iron TIBC Lactate Dehydrogenase Total Creatine Kinase NT-Pro-B Natriuret Pep Total Protein Albumin Nkyoo-3-Okbgvylhn Scqcz-7-Iuazountc Beta Globulins PEP Interpretation Cholesterol LDL Cholesterol Direct Vitamin B12 Urine WBC (Auto) Urine Creatinine Crossmatch 04/22/16 04/22/16 04/22/16 11:18 12:10 18:17 WBC RBC Hgb Hct MCV MCH MCHC RDW Plt Count Lymph % (Auto) [place] % (Auto) Lymph # [place] # Baso # Seg Neutrophils % Seg Neuts % (Manual) Lymphocytes % (Manual) Monocytes % (Manual) Seg Neutrophils # Seg Neutrophils # Man Lymphocytes # (Manual) Monocytes # (Manual) Basophils # (Manual) Percent Retic PT INR APTT Heparin Anti-Xa Level 0.12 L POC ABG pH POC ABG pCO2 POC ABG pO2 Sodium Potassium Chloride Carbon Dioxide BUN Creatinine Glucose POC Glucose 142 H 227 H Calcium Phosphorus Iron TIBC Lactate Dehydrogenase Total Creatine Kinase NT-Pro-B Natriuret Pep Total Protein Albumin Kjsbt-0-Yqkzzgtrn Jvnih-1-Lgembiuey Beta Globulins PEP Interpretation Cholesterol LDL Cholesterol Direct Vitamin B12 Urine WBC (Auto) Urine Creatinine Crossmatch 04/22/16 04/22/16 04/23/16 22:28 23:47 04:49 WBC RBC Hgb Hct MCV MCH MCHC RDW Plt Count Lymph % (Auto) [place] % (Auto) Lymph # [place] # Baso # Seg Neutrophils % Seg Neuts % (Manual) Lymphocytes % (Manual) Monocytes % (Manual) Seg Neutrophils # Seg Neutrophils # Man Lymphocytes # (Manual) Monocytes # (Manual) Basophils # (Manual) Percent Retic PT INR APTT Heparin Anti-Xa Level 0.16 L POC ABG pH POC ABG pCO2 32.6 L POC ABG pO2 122 H Sodium Potassium Chloride Carbon Dioxide BUN Creatinine Glucose POC Glucose 266 H Calcium Phosphorus Iron TIBC Lactate Dehydrogenase Total Creatine Kinase NT-Pro-B Natriuret Pep Total Protein Albumin Pfecy-5-Vamvmisrw Trdch-0-Mpywfxcbk Beta Globulins PEP Interpretation Cholesterol LDL Cholesterol Direct Vitamin B12 Urine WBC (Auto) Urine Creatinine Crossmatch 04/23/16 04/23/16 04/23/16 05:41 08:05 08:34 WBC RBC Hgb Hct MCV MCH MCHC RDW Plt Count Lymph % (Auto) [place] % (Auto) Lymph # [place] # Baso # Seg Neutrophils % Seg Neuts % (Manual) Lymphocytes % (Manual) Monocytes % (Manual) Seg Neutrophils # Seg Neutrophils # Man Lymphocytes # (Manual) Monocytes # (Manual) Basophils # (Manual) Percent Retic PT INR APTT Heparin Anti-Xa Level POC ABG pH POC ABG pCO2 POC ABG pO2 Sodium Potassium Chloride 109.5 H Carbon Dioxide 21 L BUN 23 H Creatinine Glucose 227 H POC Glucose 227 H 224 H Calcium 8.2 L Phosphorus Iron TIBC Lactate Dehydrogenase Total Creatine Kinase NT-Pro-B Natriuret Pep Total Protein Albumin Vbwad-9-Fltoqkcez Viwmr-8-Pdifpfhsz Beta Globulins PEP Interpretation Cholesterol LDL Cholesterol Direct Vitamin B12 Urine WBC (Auto) Urine Creatinine Crossmatch 04/23/16 04/23/16 04/23/16 10:45 11:37 22:49 WBC RBC Hgb Hct MCV MCH MCHC RDW Plt Count Lymph % (Auto) [place] % (Auto) Lymph # [place] # Baso # Seg Neutrophils % Seg Neuts % (Manual) Lymphocytes % (Manual) Monocytes % (Manual) Seg Neutrophils # Seg Neutrophils # Man Lymphocytes # (Manual) Monocytes # (Manual) Basophils # (Manual) Percent Retic PT 15.9 H INR 1.28 H APTT Heparin Anti-Xa Level 0.12 L POC ABG pH POC ABG pCO2 POC ABG pO2 Sodium Potassium Chloride Carbon Dioxide BUN Creatinine Glucose POC Glucose 256 H Calcium Phosphorus Iron TIBC Lactate Dehydrogenase Total Creatine Kinase NT-Pro-B Natriuret Pep Total Protein Albumin Xdibe-5-Exlmghmzx Jwlon-8-Gzlbufrvx Beta Globulins PEP Interpretation Cholesterol LDL Cholesterol Direct Vitamin B12 Urine WBC (Auto) Urine Creatinine Crossmatch 04/23/16 04/24/16 04/24/16 23:59 05:29 06:03 WBC RBC Hgb Hct MCV MCH MCHC RDW Plt Count Lymph % (Auto) [place] % (Auto) Lymph # [place] # Baso # Seg Neutrophils % Seg Neuts % (Manual) Lymphocytes % (Manual) Monocytes % (Manual) Seg Neutrophils # Seg Neutrophils # Man Lymphocytes # (Manual) Monocytes # (Manual) Basophils # (Manual) Percent Retic PT INR APTT Heparin Anti-Xa Level POC ABG pH 7.464 H POC ABG pCO2 32.4 L POC ABG pO2 115 H Sodium Potassium Chloride Carbon Dioxide BUN Creatinine Glucose POC Glucose 176 H 256 H Calcium Phosphorus Iron TIBC Lactate Dehydrogenase Total Creatine Kinase NT-Pro-B Natriuret Pep Total Protein Albumin Diech-0-Trjnrpdpm Ixium-5-Irjvthwdf Beta Globulins PEP Interpretation Cholesterol LDL Cholesterol Direct Vitamin B12 Urine WBC (Auto) Urine Creatinine Crossmatch 04/24/16 04/24/16 04/24/16 07:59 12:10 17:17 WBC RBC Hgb Hct MCV MCH MCHC RDW Plt Count Lymph % (Auto) [place] % (Auto) Lymph # [place] # Baso # Seg Neutrophils % Seg Neuts % (Manual) Lymphocytes % (Manual) Monocytes % (Manual) Seg Neutrophils # Seg Neutrophils # Man Lymphocytes # (Manual) Monocytes # (Manual) Basophils # (Manual) Percent Retic PT INR APTT Heparin Anti-Xa Level 0.18 L POC ABG pH POC ABG pCO2 POC ABG pO2 Sodium Potassium Chloride Carbon Dioxide BUN Creatinine Glucose POC Glucose 304 H 325 H Calcium Phosphorus Iron TIBC Lactate Dehydrogenase Total Creatine Kinase NT-Pro-B Natriuret Pep Total Protein Albumin Uvkjk-2-Soihdhavw Ukxzp-8-Qgstfxdbu Beta Globulins PEP Interpretation Cholesterol LDL Cholesterol Direct Vitamin B12 Urine WBC (Auto) Urine Creatinine Crossmatch 04/25/16 04/25/16 04/25/16 00:52 06:40 06:44 WBC RBC Hgb Hct MCV MCH MCHC RDW Plt Count Lymph % (Auto) [place] % (Auto) Lymph # [place] # Baso # Seg Neutrophils % Seg Neuts % (Manual) Lymphocytes % (Manual) Monocytes % (Manual) Seg Neutrophils # Seg Neutrophils # Man Lymphocytes # (Manual) Monocytes # (Manual) Basophils # (Manual) Percent Retic PT INR APTT Heparin Anti-Xa Level 0.11 L POC ABG pH POC ABG pCO2 POC ABG pO2 Sodium Potassium Chloride Carbon Dioxide BUN Creatinine Glucose POC Glucose 212 H 184 H Calcium Phosphorus Iron TIBC Lactate Dehydrogenase Total Creatine Kinase NT-Pro-B Natriuret Pep Total Protein Albumin Gtmrc-3-Djwwhmmya Nymdu-3-Nqrhiopsd Beta Globulins PEP Interpretation Cholesterol LDL Cholesterol Direct Vitamin B12 Urine WBC (Auto) Urine Creatinine Crossmatch 04/25/16 04/25/16 04/25/16 11:40 13:26 17:27 WBC RBC Hgb Hct MCV MCH MCHC RDW Plt Count Lymph % (Auto) [place] % (Auto) Lymph # [place] # Baso # Seg Neutrophils % Seg Neuts % (Manual) Lymphocytes % (Manual) Monocytes % (Manual) Seg Neutrophils # Seg Neutrophils # Man Lymphocytes # (Manual) Monocytes # (Manual) Basophils # (Manual) Percent Retic PT INR APTT Heparin Anti-Xa Level 0.21 L POC ABG pH POC ABG pCO2 POC ABG pO2 Sodium Potassium Chloride Carbon Dioxide BUN Creatinine Glucose POC Glucose 206 H 204 H Calcium Phosphorus Iron TIBC Lactate Dehydrogenase Total Creatine Kinase NT-Pro-B Natriuret Pep Total Protein Albumin Tnqnr-3-Yyvkcqhpe Usfde-2-Kclntphuv Beta Globulins PEP Interpretation Cholesterol LDL Cholesterol Direct Vitamin B12 Urine WBC (Auto) Urine Creatinine Crossmatch 04/25/16 04/26/16 04/26/16 23:46 06:31 11:51 WBC RBC Hgb Hct MCV MCH MCHC RDW Plt Count Lymph % (Auto) [place] % (Auto) Lymph # [place] # Baso # Seg Neutrophils % Seg Neuts % (Manual) Lymphocytes % (Manual) Monocytes % (Manual) Seg Neutrophils # Seg Neutrophils # Man Lymphocytes # (Manual) Monocytes # (Manual) Basophils # (Manual) Percent Retic PT INR APTT Heparin Anti-Xa Level POC ABG pH POC ABG pCO2 POC ABG pO2 Sodium Potassium Chloride Carbon Dioxide BUN Creatinine Glucose POC Glucose 162 H 148 H 178 H Calcium Phosphorus Iron TIBC Lactate Dehydrogenase Total Creatine Kinase NT-Pro-B Natriuret Pep Total Protein Albumin [id number] [id number] Beta Globulins PEP Interpretation Cholesterol LDL Cholesterol Direct Vitamin B12 Urine WBC (Auto) Urine Creatinine Crossmatch 04/26/16 04/26/16 04/26/16 12:17 16:16 18:14 WBC RBC Hgb Hct MCV MCH MCHC RDW Plt Count Lymph % (Auto) [place] % (Auto) Lymph # [place] # Baso # Seg Neutrophils % Seg Neuts % (Manual) Lymphocytes % (Manual) Monocytes % (Manual) Seg Neutrophils # Seg Neutrophils # Man Lymphocytes # (Manual) Monocytes # (Manual) Basophils # (Manual) Percent Retic PT INR APTT Heparin Anti-Xa Level POC ABG pH 7.513 H POC ABG pCO2 POC ABG pO2 76 L Sodium Potassium Chloride Carbon Dioxide BUN Creatinine Glucose POC Glucose 186 H 172 H Calcium Phosphorus Iron TIBC Lactate Dehydrogenase Total Creatine Kinase NT-Pro-B Natriuret Pep Total Protein Albumin Jzwce-7-Tcrrgxuxs Yvjbr-8-Clphkfirm Beta Globulins PEP Interpretation Cholesterol LDL Cholesterol Direct Vitamin B12 Urine WBC (Auto) Urine Creatinine Crossmatch 04/26/16 04/26/16 04/27/16 19:27 23:28 04:21 WBC 13.1 H RBC 2.99 L Hgb 7.8 L Hct 24.0 L MCV 81 L MCH 26 L MCHC RDW 16.7 H Plt Count 486 H Lymph % (Auto) 12.5 L [place] % (Auto) 7.9 H Lymph # [place] # 1.0 H Baso # Seg Neutrophils % 77.5 H Seg Neuts % (Manual) Lymphocytes % (Manual) Monocytes % (Manual) Seg Neutrophils # 10.2 H Seg Neutrophils # Man Lymphocytes # (Manual) Monocytes # (Manual) Basophils # (Manual) Percent Retic PT INR APTT Heparin Anti-Xa Level 0.22 L POC ABG pH POC ABG pCO2 POC ABG pO2 Sodium Potassium Chloride Carbon Dioxide BUN Creatinine Glucose POC Glucose 141 H Calcium Phosphorus Iron TIBC Lactate Dehydrogenase Total Creatine Kinase NT-Pro-B Natriuret Pep Total Protein Albumin Jhrlg-9-Tpytevabl Kpfaw-7-Ktemjnpnp Beta Globulins PEP Interpretation Cholesterol LDL Cholesterol Direct Vitamin B12 Urine WBC (Auto) Urine Creatinine Crossmatch 04/27/16 04/27/16 04/27/16 04:21 05:46 11:04 WBC RBC Hgb Hct MCV MCH MCHC RDW Plt Count Lymph % (Auto) [place] % (Auto) Lymph # [place] # Baso # Seg Neutrophils % Seg Neuts % (Manual) Lymphocytes % (Manual) Monocytes % (Manual) Seg Neutrophils # Seg Neutrophils # Man Lymphocytes # (Manual) Monocytes # (Manual) Basophils # (Manual) Percent Retic PT INR APTT Heparin Anti-Xa Level POC ABG pH 7.489 H POC ABG pCO2 POC ABG pO2 71 L Sodium Potassium Chloride Carbon Dioxide BUN Creatinine 0.6 L Glucose 187 H POC Glucose 192 H Calcium 8.0 L Phosphorus Iron TIBC Lactate Dehydrogenase Total Creatine Kinase NT-Pro-B Natriuret Pep Total Protein 6.0 L Albumin 2.0 L Htoho-0-Ssgaefkcu Gqjkc-0-Obrozbgxu Beta Globulins PEP Interpretation Cholesterol LDL Cholesterol Direct Vitamin B12 Urine WBC (Auto) Urine Creatinine Crossmatch 04/27/16 04/27/16 04/27/16 14:12 21:58 23:38 WBC RBC Hgb Hct MCV MCH MCHC RDW Plt Count Lymph % (Auto) [place] % (Auto) Lymph # [place] # Baso # Seg Neutrophils % Seg Neuts % (Manual) Lymphocytes % (Manual) Monocytes % (Manual) Seg Neutrophils # Seg Neutrophils # Man Lymphocytes # (Manual) Monocytes # (Manual) Basophils # (Manual) Percent Retic PT INR APTT Heparin Anti-Xa Level 0.24 L POC ABG pH POC ABG pCO2 POC ABG pO2 Sodium Potassium Chloride Carbon Dioxide BUN Creatinine Glucose POC Glucose 216 H 181 H Calcium Phosphorus Iron TIBC Lactate Dehydrogenase Total Creatine Kinase NT-Pro-B Natriuret Pep Total Protein Albumin Dohzp-5-Ubdeeahoo Lkrdm-7-Qyhpschqj Beta Globulins PEP Interpretation Cholesterol LDL Cholesterol Direct Vitamin B12 Urine WBC (Auto) Urine Creatinine Crossmatch 04/28/16 04/28/16 04/28/16 04:28 05:52 11:31 WBC RBC Hgb Hct MCV MCH MCHC RDW Plt Count Lymph % (Auto) [place] % (Auto) Lymph # [place] # Baso # Seg Neutrophils % Seg Neuts % (Manual) Lymphocytes % (Manual) Monocytes % (Manual) Seg Neutrophils # Seg Neutrophils # Man Lymphocytes # (Manual) Monocytes # (Manual) Basophils # (Manual) Percent Retic PT INR APTT Heparin Anti-Xa Level POC ABG pH 7.524 H POC ABG pCO2 POC ABG pO2 Sodium Potassium Chloride Carbon Dioxide BUN Creatinine Glucose POC Glucose 254 H 280 H Calcium Phosphorus Iron TIBC Lactate Dehydrogenase Total Creatine Kinase NT-Pro-B Natriuret Pep Total Protein Albumin Hggsl-7-Xcenrmltz Pkepj-5-Gieqfuhcn Beta Globulins PEP Interpretation Cholesterol LDL Cholesterol Direct Vitamin B12 Urine WBC (Auto) Urine Creatinine Crossmatch 04/28/16 04/28/16 04/29/16 17:30 19:52 00:47 WBC RBC Hgb Hct MCV MCH MCHC RDW Plt Count Lymph % (Auto) [place] % (Auto) Lymph # [place] # Baso # Seg Neutrophils % Seg Neuts % (Manual) Lymphocytes % (Manual) Monocytes % (Manual) Seg Neutrophils # Seg Neutrophils # Man Lymphocytes # (Manual) Monocytes # (Manual) Basophils # (Manual) Percent Retic PT INR APTT Heparin Anti-Xa Level 0.15 L POC ABG pH POC ABG pCO2 POC ABG pO2 Sodium Potassium Chloride Carbon Dioxide BUN Creatinine Glucose POC Glucose 208 H 265 H Calcium Phosphorus Iron TIBC Lactate Dehydrogenase Total Creatine Kinase NT-Pro-B Natriuret Pep Total Protein Albumin Alyal-8-Umidcixgr Zacrh-1-Ezkrkjxfh Beta Globulins PEP Interpretation Cholesterol LDL Cholesterol Direct Vitamin B12 Urine WBC (Auto) Urine Creatinine Crossmatch 04/29/16 04/29/16 04/29/16 04:00 04:00 04:29 WBC 13.4 H RBC 2.56 L Hgb 6.9 L Hct 20.6 L MCV 81 L MCH 27 L MCHC RDW 16.2 H Plt Count 513 H Lymph % (Auto) 10.0 L [place] % (Auto) 12.0 H Lymph # [place] # 1.6 H Baso # Seg Neutrophils % 77.1 H Seg Neuts % (Manual) Lymphocytes % (Manual) Monocytes % (Manual) Seg Neutrophils # 10.4 H Seg Neutrophils # Man Lymphocytes # (Manual) Monocytes # (Manual) Basophils # (Manual) Percent Retic PT INR APTT Heparin Anti-Xa Level POC ABG pH 7.501 H POC ABG pCO2 POC ABG pO2 76 L Sodium Potassium Chloride Carbon Dioxide BUN 27 H Creatinine Glucose 204 H POC Glucose Calcium 8.1 L Phosphorus Iron TIBC Lactate Dehydrogenase Total Creatine Kinase NT-Pro-B Natriuret Pep Total Protein Albumin Xtohj-7-Jxfqcxcuu Ftmna-4-Whcogmotc Beta Globulins PEP Interpretation Cholesterol LDL Cholesterol Direct Vitamin B12 Urine WBC (Auto) Urine Creatinine Crossmatch 04/29/16 04/29/16 04/29/16 06:03 10:05 10:16 WBC RBC Hgb Hct MCV MCH MCHC RDW Plt Count Lymph % (Auto) [place] % (Auto) Lymph # [place] # Baso # Seg Neutrophils % Seg Neuts % (Manual) Lymphocytes % (Manual) Monocytes % (Manual) Seg Neutrophils # Seg Neutrophils # Man Lymphocytes # (Manual) Monocytes # (Manual) Basophils # (Manual) Percent Retic 3.68 H PT INR APTT Heparin Anti-Xa Level POC ABG pH POC ABG pCO2 POC ABG pO2 Sodium Potassium Chloride Carbon Dioxide BUN Creatinine Glucose POC Glucose 192 H Calcium Phosphorus Iron TIBC Lactate Dehydrogenase Total Creatine Kinase NT-Pro-B Natriuret Pep Total Protein Albumin Athqf-3-Xutuyvxub Mwctd-0-Pxdqrwsch Beta Globulins PEP Interpretation Cholesterol LDL Cholesterol Direct Vitamin B12 Urine WBC (Auto) Urine Creatinine Crossmatch See Detail 04/29/16 04/29/16 04/29/16 10:16 10:16 11:23 WBC RBC Hgb Hct MCV MCH MCHC RDW Plt Count Lymph % (Auto) [place] % (Auto) Lymph # [place] # Baso # Seg Neutrophils % Seg Neuts % (Manual) Lymphocytes % (Manual) Monocytes % (Manual) Seg Neutrophils # Seg Neutrophils # Man Lymphocytes # (Manual) Monocytes # (Manual) Basophils # (Manual) Percent Retic PT INR APTT Heparin Anti-Xa Level POC ABG pH POC ABG pCO2 POC ABG pO2 Sodium Potassium Chloride Carbon Dioxide BUN Creatinine Glucose POC Glucose 116 H Calcium Phosphorus Iron 10 L TIBC 138 L Lactate Dehydrogenase 204 H Total Creatine Kinase NT-Pro-B Natriuret Pep Total Protein Albumin Xwmfh-9-Nhviymgqc Wxyoa-4-Olpubpmgn Beta Globulins PEP Interpretation Cholesterol LDL Cholesterol Direct Vitamin B12 1005 H Urine WBC (Auto) Urine Creatinine Crossmatch 04/29/16 04/29/16 04/30/16 17:34 23:19 03:19 WBC RBC Hgb 9.0 L Hct 26.7 L D MCV MCH MCHC RDW Plt Count Lymph % (Auto) [place] % (Auto) Lymph # [place] # Baso # Seg Neutrophils % Seg Neuts % (Manual) Lymphocytes % (Manual) Monocytes % (Manual) Seg Neutrophils # Seg Neutrophils # Man Lymphocytes # (Manual) Monocytes # (Manual) Basophils # (Manual) Percent Retic PT INR APTT Heparin Anti-Xa Level POC ABG pH POC ABG pCO2 POC ABG pO2 Sodium Potassium Chloride Carbon Dioxide BUN Creatinine Glucose POC Glucose 142 H 242 H Calcium Phosphorus Iron TIBC Lactate Dehydrogenase Total Creatine Kinase NT-Pro-B Natriuret Pep Total Protein Albumin Czybp-3-Qevtpgywe Vaixd-9-Zmacdrlty Beta Globulins PEP Interpretation Cholesterol LDL Cholesterol Direct Vitamin B12 Urine WBC (Auto) Urine Creatinine Crossmatch 04/30/16 04/30/16 04/30/16 04:10 04:10 04:32 WBC 13.8 H RBC 3.54 L Hgb 9.3 L Hct 29.1 L MCV 82 L MCH 26 L MCHC RDW 16.5 H Plt Count 535 H Lymph % (Auto) 7.5 L [place] % (Auto) 13.8 H Lymph # 1.0 L [place] # 1.9 H Baso # Seg Neutrophils % 78.0 H Seg Neuts % (Manual) Lymphocytes % (Manual) Monocytes % (Manual) Seg Neutrophils # 10.7 H Seg Neutrophils # Man Lymphocytes # (Manual) Monocytes # (Manual) Basophils # (Manual) Percent Retic PT INR APTT Heparin Anti-Xa Level POC ABG pH 7.519 H POC ABG pCO2 33.6 L POC ABG pO2 79 L Sodium 146 H Potassium Chloride Carbon Dioxide BUN Creatinine 0.7 L Glucose 242 H POC Glucose Calcium 8.3 L Phosphorus Iron TIBC Lactate Dehydrogenase Total Creatine Kinase NT-Pro-B Natriuret Pep Total Protein Albumin Yrkko-2-Grttsemvv Qammb-6-Ucicxdfvx Beta Globulins PEP Interpretation Cholesterol LDL Cholesterol Direct Vitamin B12 Urine WBC (Auto) Urine Creatinine Crossmatch 04/30/16 04/30/16 04/30/16 05:33 11:23 17:26 WBC RBC Hgb Hct MCV MCH MCHC RDW Plt Count Lymph % (Auto) [place] % (Auto) Lymph # [place] # Baso # Seg Neutrophils % Seg Neuts % (Manual) Lymphocytes % (Manual) Monocytes % (Manual) Seg Neutrophils # Seg Neutrophils # Man Lymphocytes # (Manual) Monocytes # (Manual) Basophils # (Manual) Percent Retic PT INR APTT Heparin Anti-Xa Level POC ABG pH POC ABG pCO2 POC ABG pO2 Sodium Potassium Chloride Carbon Dioxide BUN Creatinine Glucose POC Glucose 242 H 305 H 281 H Calcium Phosphorus Iron TIBC Lactate Dehydrogenase Total Creatine Kinase NT-Pro-B Natriuret Pep Total Protein Albumin Lgdxh-1-Nvbpdyptk Dhgxk-6-Tnicnmloy Beta Globulins PEP Interpretation Cholesterol LDL Cholesterol Direct Vitamin B12 Urine WBC (Auto) Urine Creatinine Crossmatch 04/30/16 05/01/16 05/01/16 23:53 04:00 04:00 WBC 15.9 H RBC 2.99 L Hgb 7.9 L Hct 24.4 L MCV 82 L MCH 26 L MCHC RDW 16.9 H Plt Count 481 H Lymph % (Auto) 9.3 L [place] % (Auto) 15.0 H Lymph # [place] # 2.4 H Baso # Seg Neutrophils % 74.9 H Seg Neuts % (Manual) Lymphocytes % (Manual) Monocytes % (Manual) Seg Neutrophils # 11.9 H Seg Neutrophils # Man Lymphocytes # (Manual) Monocytes # (Manual) Basophils # (Manual) Percent Retic PT INR APTT Heparin Anti-Xa Level POC ABG pH POC ABG pCO2 POC ABG pO2 Sodium 147 H Potassium Chloride 107.8 H Carbon Dioxide BUN 22 H Creatinine 0.7 L Glucose 229 H POC Glucose 207 H Calcium 8.2 L Phosphorus Iron TIBC Lactate Dehydrogenase Total Creatine Kinase NT-Pro-B Natriuret Pep Total Protein Albumin Xwwax-0-Xwvrgnafe Uswfg-3-Vxgvqddce Beta Globulins PEP Interpretation Cholesterol LDL Cholesterol Direct Vitamin B12 Urine WBC (Auto) Urine Creatinine Crossmatch 05/01/16 05/01/16 05/01/16 05:12 07:41 12:33 WBC RBC Hgb Hct MCV MCH MCHC RDW Plt Count Lymph % (Auto) [place] % (Auto) Lymph # [place] # Baso # Seg Neutrophils % Seg Neuts % (Manual) Lymphocytes % (Manual) Monocytes % (Manual) Seg Neutrophils # Seg Neutrophils # Man Lymphocytes # (Manual) Monocytes # (Manual) Basophils # (Manual) Percent Retic PT INR APTT Heparin Anti-Xa Level 0.16 L POC ABG pH POC ABG pCO2 POC ABG pO2 Sodium Potassium Chloride Carbon Dioxide BUN Creatinine Glucose POC Glucose 284 H 186 H Calcium Phosphorus Iron TIBC Lactate Dehydrogenase Total Creatine Kinase NT-Pro-B Natriuret Pep Total Protein Albumin Sjufr-3-Vsktnegav Sbrrp-6-Krszksazj Beta Globulins PEP Interpretation Cholesterol LDL Cholesterol Direct Vitamin B12 Urine WBC (Auto) Urine Creatinine Crossmatch 05/01/16 05/01/16 05/02/16 17:24 23:19 04:48 WBC 17.2 H RBC 3.09 L Hgb 8.1 L Hct 25.5 L MCV 83 L MCH 26 L MCHC RDW 17.3 H Plt Count 507 H Lymph % (Auto) 8.0 L [place] % (Auto) 13.6 H Lymph # [place] # 2.3 H Baso # Seg Neutrophils % 77.5 H Seg Neuts % (Manual) Lymphocytes % (Manual) Monocytes % (Manual) Seg Neutrophils # 13.4 H Seg Neutrophils # Man Lymphocytes # (Manual) Monocytes # (Manual) Basophils # (Manual) Percent Retic PT INR APTT Heparin Anti-Xa Level POC ABG pH POC ABG pCO2 POC ABG pO2 Sodium Potassium Chloride Carbon Dioxide BUN Creatinine Glucose POC Glucose 171 H 132 H Calcium Phosphorus Iron TIBC Lactate Dehydrogenase Total Creatine Kinase NT-Pro-B Natriuret Pep Total Protein Albumin Qozqd-6-Hwmjolmvq Nxswu-9-Njpcbhyje Beta Globulins PEP Interpretation Cholesterol LDL Cholesterol Direct Vitamin B12 Urine WBC (Auto) Urine Creatinine Crossmatch 05/02/16 05/02/16 05/02/16 04:48 04:48 05:42 WBC RBC Hgb Hct MCV MCH MCHC RDW Plt Count Lymph % (Auto) [place] % (Auto) Lymph # [place] # Baso # Seg Neutrophils % Seg Neuts % (Manual) Lymphocytes % (Manual) Monocytes % (Manual) Seg Neutrophils # Seg Neutrophils # Man Lymphocytes # (Manual) Monocytes # (Manual) Basophils # (Manual) Percent Retic PT INR APTT Heparin Anti-Xa Level 0.19 L POC ABG pH POC ABG pCO2 POC ABG pO2 Sodium 149 H Potassium Chloride 109.9 H Carbon Dioxide BUN 24 H Creatinine Glucose 224 H POC Glucose 253 H Calcium 8.2 L Phosphorus Iron TIBC Lactate Dehydrogenase Total Creatine Kinase NT-Pro-B Natriuret Pep Total Protein Albumin Dbbgy-5-Ghpwlydnu Lwcxo-7-Gkqyqfajk Beta Globulins PEP Interpretation Cholesterol LDL Cholesterol Direct Vitamin B12 Urine WBC (Auto) Urine Creatinine Crossmatch 05/02/16 05/02/16 05/02/16 12:01 16:40 23:35 WBC RBC Hgb Hct MCV MCH MCHC RDW Plt Count Lymph % (Auto) [place] % (Auto) Lymph # [place] # Baso # Seg Neutrophils % Seg Neuts % (Manual) Lymphocytes % (Manual) Monocytes % (Manual) Seg Neutrophils # Seg Neutrophils # Man Lymphocytes # (Manual) Monocytes # (Manual) Basophils # (Manual) Percent Retic PT INR APTT Heparin Anti-Xa Level POC ABG pH POC ABG pCO2 POC ABG pO2 Sodium Potassium Chloride Carbon Dioxide BUN Creatinine Glucose POC Glucose 197 H 126 H 303 H Calcium Phosphorus Iron TIBC Lactate Dehydrogenase Total Creatine Kinase NT-Pro-B Natriuret Pep Total Protein Albumin Wtxqz-7-Ugqukbhwm Bezyo-3-Ugrejfkei Beta Globulins PEP Interpretation Cholesterol LDL Cholesterol Direct Vitamin B12 Urine WBC (Auto) Urine Creatinine Crossmatch 05/03/16 05/03/16 05/03/16 04:31 04:31 04:31 WBC 19.1 H RBC 3.15 L Hgb 8.6 L Hct 25.7 L MCV 82 L MCH MCHC RDW 17.4 H Plt Count 525 H Lymph % (Auto) [place] % (Auto) Lymph # [place] # Baso # Seg Neutrophils % Seg Neuts % (Manual) Lymphocytes % (Manual) 10.0 L Monocytes % (Manual) 13.0 H Seg Neutrophils # Seg Neutrophils # Man 13.2 H Lymphocytes # (Manual) Monocytes # (Manual) 2.5 H Basophils # (Manual) 0.2 H Percent Retic PT INR APTT Heparin Anti-Xa Level 0.16 L POC ABG pH POC ABG pCO2 POC ABG pO2 Sodium 151 H Potassium Chloride 112.9 H Carbon Dioxide BUN 24 H Creatinine 0.7 L Glucose 303 H POC Glucose Calcium Phosphorus Iron TIBC Lactate Dehydrogenase Total Creatine Kinase NT-Pro-B Natriuret Pep Total Protein Albumin Orxjw-4-Ktksyxlyp Znjww-6-Hvejliwiu Beta Globulins PEP Interpretation Cholesterol LDL Cholesterol Direct Vitamin B12 Urine WBC (Auto) Urine Creatinine Crossmatch 05/03/16 05/03/16 05/04/16 12:08 18:05 00:11 WBC RBC Hgb Hct MCV MCH MCHC RDW Plt Count Lymph % (Auto) [place] % (Auto) Lymph # [place] # Baso # Seg Neutrophils % Seg Neuts % (Manual) Lymphocytes % (Manual) Monocytes % (Manual) Seg Neutrophils # Seg Neutrophils # Man Lymphocytes # (Manual) Monocytes # (Manual) Basophils # (Manual) Percent Retic PT INR APTT Heparin Anti-Xa Level POC ABG pH POC ABG pCO2 POC ABG pO2 Sodium Potassium Chloride Carbon Dioxide BUN Creatinine Glucose POC Glucose 452 H 370 H 374 H Calcium Phosphorus Iron TIBC Lactate Dehydrogenase Total Creatine Kinase NT-Pro-B Natriuret Pep Total Protein Albumin Egkpp-3-Nkrxkppno Febxt-6-Wnpgpzuaw Beta Globulins PEP Interpretation Cholesterol LDL Cholesterol Direct Vitamin B12 Urine WBC (Auto) Urine Creatinine Crossmatch 05/04/16 05/04/16 05/04/16 04:31 04:31 04:31 WBC 19.8 H RBC 2.90 L Hgb 7.8 L Hct 23.8 L MCV 82 L MCH 27 L MCHC RDW 17.9 H Plt Count 504 H Lymph % (Auto) [place] % (Auto) Lymph # [place] # Baso # Seg Neutrophils % Seg Neuts % (Manual) Lymphocytes % (Manual) 11.0 L Monocytes % (Manual) 8.0 H Seg Neutrophils # Seg Neutrophils # Man 13.3 H Lymphocytes # (Manual) Monocytes # (Manual) 1.6 H Basophils # (Manual) Percent Retic PT INR APTT Heparin Anti-Xa Level 0.15 L POC ABG pH POC ABG pCO2 POC ABG pO2 Sodium 146 H Potassium Chloride Carbon Dioxide BUN 30 H Creatinine 0.7 L Glucose 321 H POC Glucose Calcium 8.3 L Phosphorus Iron TIBC Lactate Dehydrogenase Total Creatine Kinase NT-Pro-B Natriuret Pep Total Protein Albumin Uuxmt-2-Cyzihuukb Vxrys-3-Xyeeoawqp Beta Globulins PEP Interpretation Cholesterol LDL Cholesterol Direct Vitamin B12 Urine WBC (Auto) Urine Creatinine Crossmatch 05/04/16 05/04/16 05/04/16 10:20 11:57 17:36 WBC RBC Hgb Hct MCV MCH MCHC RDW Plt Count Lymph % (Auto) [place] % (Auto) Lymph # [place] # Baso # Seg Neutrophils % Seg Neuts % (Manual) Lymphocytes % (Manual) Monocytes % (Manual) Seg Neutrophils # Seg Neutrophils # Man Lymphocytes # (Manual) Monocytes # (Manual) Basophils # (Manual) Percent Retic PT INR APTT Heparin Anti-Xa Level POC ABG pH POC ABG pCO2 POC ABG pO2 Sodium Potassium Chloride Carbon Dioxide BUN Creatinine Glucose POC Glucose 303 H 271 H Calcium Phosphorus Iron TIBC Lactate Dehydrogenase Total Creatine Kinase NT-Pro-B Natriuret Pep Total Protein Albumin Jiwjp-1-Vlolljeyi Zrvvz-2-Cvexfyxoc Beta Globulins PEP Interpretation Cholesterol LDL Cholesterol Direct Vitamin B12 Urine WBC (Auto) > 182.0 H Urine Creatinine Crossmatch 05/04/16 05/05/16 05/05/16 23:53 04:13 04:13 WBC 20.9 H RBC 2.92 L Hgb 7.6 L Hct 23.9 L MCV 82 L MCH 26 L MCHC RDW 17.9 H Plt Count 526 H Lymph % (Auto) [place] % (Auto) Lymph # [place] # Baso # Seg Neutrophils % Seg Neuts % (Manual) 93.0 H Lymphocytes % (Manual) 2.0 L Monocytes % (Manual) Seg Neutrophils # Seg Neutrophils # Man 19.4 H Lymphocytes # (Manual) 0.4 L Monocytes # (Manual) Basophils # (Manual) Percent Retic PT INR APTT Heparin Anti-Xa Level POC ABG pH POC ABG pCO2 POC ABG pO2 Sodium 146 H Potassium Chloride Carbon Dioxide BUN 30 H Creatinine 0.7 L Glucose 250 H POC Glucose 235 H Calcium 8.1 L Phosphorus Iron TIBC Lactate Dehydrogenase Total Creatine Kinase NT-Pro-B Natriuret Pep Total Protein Albumin Ougsk-0-Zoimkdkja Owidk-3-Hdjiwydii Beta Globulins PEP Interpretation Cholesterol LDL Cholesterol Direct Vitamin B12 Urine WBC (Auto) Urine Creatinine Crossmatch 05/05/16 05/05/16 05/05/16 05:27 07:36 12:06 WBC RBC Hgb Hct MCV MCH MCHC RDW Plt Count Lymph % (Auto) [place] % (Auto) Lymph # [place] # Baso # Seg Neutrophils % Seg Neuts % (Manual) Lymphocytes % (Manual) Monocytes % (Manual) Seg Neutrophils # Seg Neutrophils # Man Lymphocytes # (Manual) Monocytes # (Manual) Basophils # (Manual) Percent Retic PT INR APTT Heparin Anti-Xa Level < 0.10 L POC ABG pH POC ABG pCO2 POC ABG pO2 Sodium Potassium Chloride Carbon Dioxide BUN Creatinine Glucose POC Glucose 287 H 301 H Calcium Phosphorus Iron TIBC Lactate Dehydrogenase Total Creatine Kinase NT-Pro-B Natriuret Pep Total Protein Albumin Xbgga-4-Fhkxuyupi Pdecr-3-Fgiehdgxx Beta Globulins PEP Interpretation Cholesterol LDL Cholesterol Direct Vitamin B12 Urine WBC (Auto) Urine Creatinine Crossmatch 05/05/16 05/05/16 05/06/16 15:58 17:30 00:10 WBC RBC Hgb Hct MCV MCH MCHC RDW Plt Count Lymph % (Auto) [place] % (Auto) Lymph # [place] # Baso # Seg Neutrophils % Seg Neuts % (Manual) Lymphocytes % (Manual) Monocytes % (Manual) Seg Neutrophils # Seg Neutrophils # Man Lymphocytes # (Manual) Monocytes # (Manual) Basophils # (Manual) Percent Retic PT INR APTT Heparin Anti-Xa Level 0.17 L POC ABG pH POC ABG pCO2 POC ABG pO2 Sodium Potassium Chloride Carbon Dioxide BUN Creatinine Glucose POC Glucose 226 H 161 H Calcium Phosphorus Iron TIBC Lactate Dehydrogenase Total Creatine Kinase NT-Pro-B Natriuret Pep Total Protein Albumin Ycyow-5-Vxhswdwwz Orbgt-4-Bfrmnyumt Beta Globulins PEP Interpretation Cholesterol LDL Cholesterol Direct Vitamin B12 Urine WBC (Auto) Urine Creatinine Crossmatch 05/06/16 05/06/16 05/06/16 04:23 05:30 05:37 WBC RBC Hgb Hct MCV MCH MCHC RDW Plt Count Lymph % (Auto) [place] % (Auto) Lymph # [place] # Baso # Seg Neutrophils % Seg Neuts % (Manual) Lymphocytes % (Manual) Monocytes % (Manual) Seg Neutrophils # Seg Neutrophils # Man Lymphocytes # (Manual) Monocytes # (Manual) Basophils # (Manual) Percent Retic PT INR APTT Heparin Anti-Xa Level 0.15 L POC ABG pH 7.511 H POC ABG pCO2 POC ABG pO2 Sodium Potassium Chloride Carbon Dioxide BUN Creatinine Glucose POC Glucose 168 H Calcium Phosphorus Iron TIBC Lactate Dehydrogenase Total Creatine Kinase NT-Pro-B Natriuret Pep Total Protein Albumin Jleef-4-Anpnjqooh Yazor-2-Fajqtlpuq Beta Globulins PEP Interpretation Cholesterol LDL Cholesterol Direct Vitamin B12 Urine WBC (Auto) Urine Creatinine Crossmatch 05/06/16 05/06/16 05/07/16 12:48 17:22 00:04 WBC RBC Hgb Hct MCV MCH MCHC RDW Plt Count Lymph % (Auto) [place] % (Auto) Lymph # [place] # Baso # Seg Neutrophils % Seg Neuts % (Manual) Lymphocytes % (Manual) Monocytes % (Manual) Seg Neutrophils # Seg Neutrophils # Man Lymphocytes # (Manual) Monocytes # (Manual) Basophils # (Manual) Percent Retic PT INR APTT Heparin Anti-Xa Level POC ABG pH POC ABG pCO2 POC ABG pO2 Sodium Potassium Chloride Carbon Dioxide BUN Creatinine Glucose POC Glucose 206 H 160 H 164 H Calcium Phosphorus Iron TIBC Lactate Dehydrogenase Total Creatine Kinase NT-Pro-B Natriuret Pep Total Protein Albumin Pkhox-6-Rmqupeqxw Qvndt-4-Fryalnadp Beta Globulins PEP Interpretation Cholesterol LDL Cholesterol Direct Vitamin B12 Urine WBC (Auto) Urine Creatinine Crossmatch 05/07/16 05/07/16 05/07/16 04:02 05:50 11:30 WBC RBC Hgb Hct MCV MCH MCHC RDW Plt Count Lymph % (Auto) [place] % (Auto) Lymph # [place] # Baso # Seg Neutrophils % Seg Neuts % (Manual) Lymphocytes % (Manual) Monocytes % (Manual) Seg Neutrophils # Seg Neutrophils # Man Lymphocytes # (Manual) Monocytes # (Manual) Basophils # (Manual) Percent Retic PT INR APTT Heparin Anti-Xa Level 0.15 L POC ABG pH POC ABG pCO2 POC ABG pO2 Sodium Potassium Chloride Carbon Dioxide BUN Creatinine Glucose POC Glucose 177 H 240 H Calcium Phosphorus Iron TIBC Lactate Dehydrogenase Total Creatine Kinase NT-Pro-B Natriuret Pep Total Protein Albumin Jnced-8-Jftzxvdii Dkxyz-7-Feuyxvqvv Beta Globulins PEP Interpretation Cholesterol LDL Cholesterol Direct Vitamin B12 Urine WBC (Auto) Urine Creatinine Crossmatch 05/07/16 05/07/16 05/07/16 12:46 17:57 23:54 WBC 20.8 H RBC 2.86 L Hgb 7.6 L Hct 23.3 L MCV 81 L MCH 26 L MCHC RDW 17.9 H Plt Count 559 H Lymph % (Auto) [place] % (Auto) Lymph # [place] # Baso # Seg Neutrophils % Seg Neuts % (Manual) Lymphocytes % (Manual) Monocytes % (Manual) Seg Neutrophils # Seg Neutrophils # Man Lymphocytes # (Manual) Monocytes # (Manual) Basophils # (Manual) Percent Retic PT INR APTT Heparin Anti-Xa Level POC ABG pH POC ABG pCO2 POC ABG pO2 Sodium Potassium Chloride Carbon Dioxide BUN Creatinine Glucose POC Glucose 279 H 201 H Calcium Phosphorus Iron TIBC Lactate Dehydrogenase Total Creatine Kinase NT-Pro-B Natriuret Pep Total Protein Albumin Didbf-5-Dwzkbrphd Dswom-1-Mpbydjbzr Beta Globulins PEP Interpretation Cholesterol LDL Cholesterol Direct Vitamin B12 Urine WBC (Auto) Urine Creatinine Crossmatch 05/08/16 05/08/16 05/08/16 04:04 05:39 12:09 WBC RBC Hgb Hct MCV MCH MCHC RDW Plt Count Lymph % (Auto) [place] % (Auto) Lymph # [place] # Baso # Seg Neutrophils % Seg Neuts % (Manual) Lymphocytes % (Manual) Monocytes % (Manual) Seg Neutrophils # Seg Neutrophils # Man Lymphocytes # (Manual) Monocytes # (Manual) Basophils # (Manual) Percent Retic PT INR APTT Heparin Anti-Xa Level 0.20 L POC ABG pH POC ABG pCO2 POC ABG pO2 Sodium Potassium Chloride Carbon Dioxide BUN Creatinine Glucose POC Glucose 153 H 188 H Calcium Phosphorus Iron TIBC Lactate Dehydrogenase Total Creatine Kinase NT-Pro-B Natriuret Pep Total Protein Albumin [id number]-4-Jfslynhin Qurfs-7-Ezoqlgfzp Beta Globulins PEP Interpretation Cholesterol LDL Cholesterol Direct Vitamin B12 Urine WBC (Auto) Urine Creatinine Crossmatch 05/08/16 05/08/16 05/08/16 17:44 17:49 18:51 WBC RBC Hgb Hct MCV MCH MCHC RDW Plt Count Lymph % (Auto) [place] % (Auto) Lymph # [place] # Baso # Seg Neutrophils % Seg Neuts % (Manual) Lymphocytes % (Manual) Monocytes % (Manual) Seg Neutrophils # Seg Neutrophils # Man Lymphocytes # (Manual) Monocytes # (Manual) Basophils # (Manual) Percent Retic PT INR APTT Heparin Anti-Xa Level POC ABG pH POC ABG pCO2 POC ABG pO2 Sodium Potassium Chloride Carbon Dioxide BUN Creatinine Glucose POC Glucose 56 L 61 L 135 H Calcium Phosphorus Iron TIBC Lactate Dehydrogenase Total Creatine Kinase NT-Pro-B Natriuret Pep Total Protein Albumin Iawss-1-Olynfkmvq Wmpob-5-Okafzwwit Beta Globulins PEP Interpretation Cholesterol LDL Cholesterol Direct Vitamin B12 Urine WBC (Auto) Urine Creatinine Crossmatch 05/09/16 05/09/16 05/09/16 00:14 04:07 05:18 WBC RBC Hgb Hct MCV MCH MCHC RDW Plt Count Lymph % (Auto) [place] % (Auto) Lymph # [place] # Baso # Seg Neutrophils % Seg Neuts % (Manual) Lymphocytes % (Manual) Monocytes % (Manual) Seg Neutrophils # Seg Neutrophils # Man Lymphocytes # (Manual) Monocytes # (Manual) Basophils # (Manual) Percent Retic PT INR APTT Heparin Anti-Xa Level 0.21 L POC ABG pH POC ABG pCO2 POC ABG pO2 Sodium Potassium Chloride Carbon Dioxide BUN Creatinine Glucose POC Glucose 151 H 215 H Calcium Phosphorus Iron TIBC Lactate Dehydrogenase Total Creatine Kinase NT-Pro-B Natriuret Pep Total Protein Albumin Ptvbt-5-Aaywozvoh Ggplo-4-Ufvnojqmf Beta Globulins PEP Interpretation Cholesterol LDL Cholesterol Direct Vitamin B12 Urine WBC (Auto) Urine Creatinine Crossmatch 05/09/16 05/09/16 05/09/16 12:27 16:39 17:30 WBC RBC Hgb 6.4 L Hct 20.2 L MCV MCH MCHC RDW Plt Count Lymph % (Auto) [place] % (Auto) Lymph # [place] # Baso # Seg Neutrophils % Seg Neuts % (Manual) Lymphocytes % (Manual) Monocytes % (Manual) Seg Neutrophils # Seg Neutrophils # Man Lymphocytes # (Manual) Monocytes # (Manual) Basophils # (Manual) Percent Retic PT INR APTT Heparin Anti-Xa Level POC ABG pH POC ABG pCO2 POC ABG pO2 Sodium Potassium Chloride Carbon Dioxide BUN Creatinine Glucose POC Glucose 291 H 220 H Calcium Phosphorus Iron TIBC Lactate Dehydrogenase Total Creatine Kinase NT-Pro-B Natriuret Pep Total Protein Albumin Mjkfu-6-Moxunttof Skouk-0-Ipauuyffz Beta Globulins PEP Interpretation Cholesterol LDL Cholesterol Direct Vitamin B12 Urine WBC (Auto) Urine Creatinine Crossmatch 05/09/16 05/09/16 05/10/16 19:47 23:57 03:55 WBC 16.9 H RBC 3.20 L Hgb 8.6 L Hct 26.7 L D MCV 83 L MCH 27 L MCHC RDW 17.5 H Plt Count 488 H Lymph % (Auto) [place] % (Auto) Lymph # [place] # Baso # Seg Neutrophils % Seg Neuts % (Manual) 76.0 H Lymphocytes % (Manual) 9.0 L Monocytes % (Manual) 10.0 H Seg Neutrophils # Seg Neutrophils # Man 12.8 H Lymphocytes # (Manual) Monocytes # (Manual) 1.7 H Basophils # (Manual) Percent Retic PT INR APTT Heparin Anti-Xa Level POC ABG pH POC ABG pCO2 POC ABG pO2 Sodium Potassium Chloride Carbon Dioxide BUN Creatinine Glucose POC Glucose 217 H Calcium Phosphorus Iron TIBC Lactate Dehydrogenase Total Creatine Kinase NT-Pro-B Natriuret Pep Total Protein Albumin Fidhp-4-Dmenhdjkn Nlnwk-5-Ihppzpcfa Beta Globulins PEP Interpretation Cholesterol LDL Cholesterol Direct Vitamin B12 Urine WBC (Auto) Urine Creatinine Crossmatch See Detail 05/10/16 05/10/16 05/10/16 05:05 11:49 12:54 WBC RBC Hgb 9.1 L Hct 28.2 L MCV MCH MCHC RDW Plt Count Lymph % (Auto) [place] % (Auto) Lymph # [place] # Baso # Seg Neutrophils % Seg Neuts % (Manual) Lymphocytes % (Manual) Monocytes % (Manual) Seg Neutrophils # Seg Neutrophils # Man Lymphocytes # (Manual) Monocytes # (Manual) Basophils # (Manual) Percent Retic PT INR APTT Heparin Anti-Xa Level POC ABG pH POC ABG pCO2 POC ABG pO2 Sodium Potassium Chloride Carbon Dioxide BUN Creatinine Glucose POC Glucose 182 H 237 H Calcium Phosphorus Iron TIBC Lactate Dehydrogenase Total Creatine Kinase NT-Pro-B Natriuret Pep Total Protein Albumin Ewjea-6-Lfunwqcxp Nnxwh-0-Zwwxvrzgw Beta Globulins PEP Interpretation Cholesterol LDL Cholesterol Direct Vitamin B12 Urine WBC (Auto) Urine Creatinine Crossmatch 05/10/16 05/10/16 05/10/16 12:54 17:29 23:07 WBC RBC Hgb Hct MCV MCH MCHC RDW Plt Count Lymph % (Auto) [place] % (Auto) Lymph # [place] # Baso # Seg Neutrophils % Seg Neuts % (Manual) Lymphocytes % (Manual) Monocytes % (Manual) Seg Neutrophils # Seg Neutrophils # Man Lymphocytes # (Manual) Monocytes # (Manual) Basophils # (Manual) Percent Retic PT INR 1.14 H APTT Heparin Anti-Xa Level POC ABG pH POC ABG pCO2 POC ABG pO2 Sodium Potassium Chloride Carbon Dioxide BUN Creatinine Glucose POC Glucose 198 H 172 H Calcium Phosphorus Iron TIBC Lactate Dehydrogenase Total Creatine Kinase NT-Pro-B Natriuret Pep Total Protein Albumin Envii-6-Xiyooylfu Iidqp-5-Tqntsmslq Beta Globulins PEP Interpretation Cholesterol LDL Cholesterol Direct Vitamin B12 Urine WBC (Auto) Urine Creatinine Crossmatch 05/11/16 05/11/16 05/11/16 04:16 04:16 05:13 WBC 16.1 H RBC 3.27 L Hgb 8.8 L Hct 27.7 L MCV MCH 27 L MCHC RDW 17.9 H Plt Count 475 H Lymph % (Auto) 8.9 L [place] % (Auto) 8.0 H Lymph # [place] # 1.3 H Baso # Seg Neutrophils % 81.6 H Seg Neuts % (Manual) Lymphocytes % (Manual) Monocytes % (Manual) Seg Neutrophils # 13.1 H Seg Neutrophils # Man Lymphocytes # (Manual) Monocytes # (Manual) Basophils # (Manual) Percent Retic PT INR APTT Heparin Anti-Xa Level POC ABG pH POC ABG pCO2 POC ABG pO2 Sodium 152 H Potassium Chloride 114.2 H Carbon Dioxide BUN 23 H Creatinine 0.6 L Glucose 166 H POC Glucose 173 H Calcium 8.0 L Phosphorus Iron TIBC Lactate Dehydrogenase Total Creatine Kinase NT-Pro-B Natriuret Pep Total Protein Albumin Kjxxw-2-Vbfyscnmh Myshk-3-Lounjlzwg Beta Globulins PEP Interpretation Cholesterol LDL Cholesterol Direct Vitamin B12 Urine WBC (Auto) Urine Creatinine Crossmatch 05/11/16 05/11/16 05/11/16 11:30 17:20 23:53 WBC RBC Hgb Hct MCV MCH MCHC RDW Plt Count Lymph % (Auto) [place] % (Auto) Lymph # [place] # Baso # Seg Neutrophils % Seg Neuts % (Manual) Lymphocytes % (Manual) Monocytes % (Manual) Seg Neutrophils # Seg Neutrophils # Man Lymphocytes # (Manual) Monocytes # (Manual) Basophils # (Manual) Percent Retic PT INR APTT Heparin Anti-Xa Level POC ABG pH POC ABG pCO2 POC ABG pO2 Sodium Potassium Chloride Carbon Dioxide BUN Creatinine Glucose POC Glucose 192 H 147 H 164 H Calcium Phosphorus Iron TIBC Lactate Dehydrogenase Total Creatine Kinase NT-Pro-B Natriuret Pep Total Protein Albumin Mbkuq-2-Jeawrgrbn Oxuru-5-Uqyfgphkr Beta Globulins PEP Interpretation Cholesterol LDL Cholesterol Direct Vitamin B12 Urine WBC (Auto) Urine Creatinine Crossmatch 05/12/16 05/12/16 05/12/16 05:35 07:33 11:01 WBC RBC Hgb 9.2 L Hct 29.2 L MCV MCH MCHC RDW Plt Count 503 H Lymph % (Auto) [place] % (Auto) Lymph # [place] # Baso # Seg Neutrophils % Seg Neuts % (Manual) Lymphocytes % (Manual) Monocytes % (Manual) Seg Neutrophils # Seg Neutrophils # Man Lymphocytes # (Manual) Monocytes # (Manual) Basophils # (Manual) Percent Retic PT INR APTT Heparin Anti-Xa Level POC ABG pH POC ABG pCO2 POC ABG pO2 Sodium 148 H Potassium Chloride 108.5 H Carbon Dioxide BUN Creatinine 0.5 L Glucose 146 H POC Glucose 145 H Calcium 8.2 L Phosphorus Iron TIBC Lactate Dehydrogenase Total Creatine Kinase NT-Pro-B Natriuret Pep Total Protein Albumin Sxqqj-6-Yxfuirnxs Eequp-8-Txhmvkfwr Beta Globulins PEP Interpretation Cholesterol LDL Cholesterol Direct Vitamin B12 Urine WBC (Auto) Urine Creatinine Crossmatch 05/12/16 05/12/16 05/12/16 11:44 18:15 19:33 WBC RBC Hgb Hct MCV MCH MCHC RDW Plt Count Lymph % (Auto) [place] % (Auto) Lymph # Live # [place] # Seg Neutrophils % Seg Neuts % (Manual) Lymphocytes % (Manual) Monocytes % (Manual) Seg Neutrophils # Seg Neutrophils # Man Lymphocytes # (Manual) Monocytes # (Manual) Basophils # (Manual) Percent Retic PT INR APTT Heparin Anti-Xa Level 0.17 L POC ABG pH POC ABG pCO2 POC ABG pO2 Sodium Potassium Chloride Carbon Dioxide BUN Creatinine Glucose POC Glucose 223 H 137 H Calcium Phosphorus Iron TIBC Lactate Dehydrogenase Total Creatine Kinase NT-Pro-B Natriuret Pep Total Protein Albumin Rlmhl-4-Jvpxebqzh Ztqzn-3-Zqbujxwap Beta Globulins PEP Interpretation Cholesterol LDL Cholesterol Direct Vitamin B12 Urine WBC (Auto) Urine Creatinine Crossmatch 05/12/16 05/13/16 05/13/16 23:23 04:45 05:43 WBC 18.1 H RBC 3.26 L Hgb 9.0 L Hct 29.0 L MCV MCH MCHC 31 L RDW 18.3 H Plt Count 467 H Lymph % (Auto) [place] % (Auto) Lymph # [place] # Seg Neutrophils % Seg Neuts % (Manual) 76.0 H Lymphocytes % (Manual) 11.0 L Monocytes % (Manual) 8.0 H Seg Neutrophils # Seg Neutrophils # Man 13.8 H Lymphocytes # (Manual) Monocytes # (Manual) 1.4 H Basophils # (Manual) 0.2 H Percent Retic PT INR APTT Heparin Anti-Xa Level POC ABG pH POC ABG pCO2 POC ABG pO2 Sodium Potassium Chloride Carbon Dioxide BUN Creatinine Glucose POC Glucose 114 H 136 H Calcium Phosphorus Iron TIBC Lactate Dehydrogenase Total Creatine Kinase NT-Pro-B Natriuret Pep Total Protein Albumin Jxmtv-2-Bmnszjchy Vwxxp-1-Vatmsqcjf Beta Globulins PEP Interpretation Cholesterol LDL Cholesterol Direct Vitamin B12 Urine WBC (Auto) Urine Creatinine Crossmatch 05/13/16 05/13/16 05/13/16 07:04 08:13 11:22 WBC RBC Hgb Hct MCV MCH MCHC RDW Plt Count Lymph % (Auto) [place] % (Auto) Lymph # [place] # Baso # Seg Neutrophils % Seg Neuts % (Manual) Lymphocytes % (Manual) Monocytes % (Manual) Seg Neutrophils # Seg Neutrophils # Man Lymphocytes # (Manual) Monocytes # (Manual) Basophils # (Manual) Percent Retic PT INR APTT Heparin Anti-Xa Level 0.25 L POC ABG pH POC ABG pCO2 POC ABG pO2 Sodium Potassium Chloride 109.1 H Carbon Dioxide BUN Creatinine 0.5 L Glucose 131 H POC Glucose 155 H Calcium 8.1 L Phosphorus Iron TIBC Lactate Dehydrogenase Total Creatine Kinase NT-Pro-B Natriuret Pep Total Protein Albumin Fvpby-6-Pyfkghcvx Ltltw-0-Antaqkfug Beta Globulins PEP Interpretation Cholesterol LDL Cholesterol Direct Vitamin B12 Urine WBC (Auto) Urine Creatinine Crossmatch 05/13/16 05/13/16 05/13/16 17:29 17:33 17:59 WBC RBC Hgb Hct MCV MCH MCHC RDW Plt Count Lymph % (Auto) [place] % (Auto) Lymph # [place] # Baso # Seg Neutrophils % Seg Neuts % (Manual) Lymphocytes % (Manual) Monocytes % (Manual) Seg Neutrophils # Seg Neutrophils # Man Lymphocytes # (Manual) Monocytes # (Manual) Basophils # (Manual) Percent Retic PT INR APTT Heparin Anti-Xa Level POC ABG pH POC ABG pCO2 POC ABG pO2 Sodium Potassium Chloride Carbon Dioxide BUN Creatinine Glucose POC Glucose 46 L < 40 L 152 H Calcium Phosphorus Iron TIBC Lactate Dehydrogenase Total Creatine Kinase NT-Pro-B Natriuret Pep Total Protein Albumin Rtzoh-2-Jvstejhfw Htwkk-5-Nwysxxmyz Beta Globulins PEP Interpretation Cholesterol LDL Cholesterol Direct Vitamin B12 Urine WBC (Auto) Urine Creatinine Crossmatch 05/13/16 05/14/16 05/14/16 18:06 04:31 04:31 WBC 18.0 H RBC Hgb 10.2 L Hct 32.6 L MCV MCH 27 L MCHC 31 L RDW 17.5 H Plt Count 576 H Lymph % (Auto) 8.9 L [place] % (Auto) 9.3 H Lymph # [place] # 1.7 H Baso # Seg Neutrophils % 80.5 H Seg Neuts % (Manual) Lymphocytes % (Manual) Monocytes % (Manual) Seg Neutrophils # 14.5 H Seg Neutrophils # Man Lymphocytes # (Manual) Monocytes # (Manual) Basophils # (Manual) Percent Retic PT INR APTT Heparin Anti-Xa Level < 0.10 L POC ABG pH POC ABG pCO2 POC ABG pO2 Sodium Potassium Chloride Carbon Dioxide BUN Creatinine 0.6 L Glucose POC Glucose Calcium Phosphorus Iron TIBC Lactate Dehydrogenase Total Creatine Kinase NT-Pro-B Natriuret Pep Total Protein Albumin Scaqi-5-Tvdexkxho Cbvea-4-Rpjfafqbu Beta Globulins PEP Interpretation Cholesterol LDL Cholesterol Direct Vitamin B12 Urine WBC (Auto) Urine Creatinine Crossmatch 05/14/16 05/14/16 05/14/16 05:50 11:47 17:45 WBC RBC Hgb Hct MCV MCH MCHC RDW Plt Count Lymph % (Auto) [place] % (Auto) Lymph # [place] # Baso # Seg Neutrophils % Seg Neuts % (Manual) Lymphocytes % (Manual) Monocytes % (Manual) Seg Neutrophils # Seg Neutrophils # Man Lymphocytes # (Manual) Monocytes # (Manual) Basophils # (Manual) Percent Retic PT INR APTT Heparin Anti-Xa Level POC ABG pH POC ABG pCO2 POC ABG pO2 Sodium Potassium Chloride Carbon Dioxide BUN Creatinine Glucose POC Glucose 136 H 232 H 220 H Calcium Phosphorus Iron TIBC Lactate Dehydrogenase Total Creatine Kinase NT-Pro-B Natriuret Pep Total Protein Albumin Addjr-4-Yldjzodqu Fzjvz-9-Unjckcfzf Beta Globulins PEP Interpretation Cholesterol LDL Cholesterol Direct Vitamin B12 Urine WBC (Auto) Urine Creatinine Crossmatch 05/14/16 05/15/16 05/15/16 22:57 04:37 04:37 WBC 16.4 H RBC 3.54 L Hgb 9.3 L Hct 29.4 L MCV 83 L MCH 26 L MCHC RDW 17.7 H Plt Count 586 H Lymph % (Auto) 6.7 L [place] % (Auto) 8.3 H Lymph # 1.1 L [place] # 1.4 H Baso # Seg Neutrophils % 83.7 H Seg Neuts % (Manual) Lymphocytes % (Manual) Monocytes % (Manual) Seg Neutrophils # 13.7 H Seg Neutrophils # Man Lymphocytes # (Manual) Monocytes # (Manual) Basophils # (Manual) Percent Retic PT INR APTT Heparin Anti-Xa Level POC ABG pH POC ABG pCO2 POC ABG pO2 Sodium Potassium Chloride Carbon Dioxide BUN Creatinine 0.6 L Glucose 220 H POC Glucose 265 H Calcium Phosphorus Iron TIBC Lactate Dehydrogenase Total Creatine Kinase NT-Pro-B Natriuret Pep Total Protein Albumin Cuqvk-2-Pugxnyjnn Xikor-8-Uariyivwn Beta Globulins PEP Interpretation Cholesterol LDL Cholesterol Direct Vitamin B12 Urine WBC (Auto) Urine Creatinine Crossmatch 05/15/16 05/15/16 05/15/16 11:43 17:08 23:47 WBC RBC Hgb Hct MCV MCH MCHC RDW Plt Count Lymph % (Auto) [place] % (Auto) Lymph # [place] # Baso # Seg Neutrophils % Seg Neuts % (Manual) Lymphocytes % (Manual) Monocytes % (Manual) Seg Neutrophils # Seg Neutrophils # Man Lymphocytes # (Manual) Monocytes # (Manual) Basophils # (Manual) Percent Retic PT INR APTT Heparin Anti-Xa Level POC ABG pH POC ABG pCO2 POC ABG pO2 Sodium Potassium Chloride Carbon Dioxide BUN Creatinine Glucose POC Glucose 290 H 180 H 130 H Calcium Phosphorus Iron TIBC Lactate Dehydrogenase Total Creatine Kinase NT-Pro-B Natriuret Pep Total Protein Albumin Grvsx-9-Userwfxwv Pmtyz-7-Dzbyyqjbs Beta Globulins PEP Interpretation Cholesterol LDL Cholesterol Direct Vitamin B12 Urine WBC (Auto) Urine Creatinine Crossmatch 05/16/16 05/16/16 05/16/16 04:13 04:13 04:29 WBC 15.4 H RBC 3.61 L Hgb 9.4 L Hct 30.2 L MCV MCH 26 L MCHC 31 L RDW 18.0 H Plt Count 563 H Lymph % (Auto) 9.3 L [place] % (Auto) 10.1 H Lymph # [place] # 1.6 H Baso # Seg Neutrophils % 79.6 H Seg Neuts % (Manual) Lymphocytes % (Manual) Monocytes % (Manual) Seg Neutrophils # 12.3 H Seg Neutrophils # Man Lymphocytes # (Manual) Monocytes # (Manual) Basophils # (Manual) Percent Retic PT INR APTT Heparin Anti-Xa Level POC ABG pH 7.491 H POC ABG pCO2 33.9 L POC ABG pO2 Sodium 147 H Potassium Chloride 108.2 H Carbon Dioxide BUN 21 H Creatinine 0.6 L Glucose 162 H POC Glucose Calcium Phosphorus Iron TIBC Lactate Dehydrogenase Total Creatine Kinase NT-Pro-B Natriuret Pep Total Protein Albumin Ppyvn-1-Izbuhtvub Kgmqu-4-Cmchxoqkl Beta Globulins PEP Interpretation Cholesterol LDL Cholesterol Direct Vitamin B12 Urine WBC (Auto) Urine Creatinine Crossmatch 05/16/16 05/16/16 05/17/16 11:40 17:54 00:00 WBC RBC Hgb Hct MCV MCH MCHC RDW Plt Count Lymph % (Auto) [place] % (Auto) Lymph # [place] # Baso # Seg Neutrophils % Seg Neuts % (Manual) Lymphocytes % (Manual) Monocytes % (Manual) Seg Neutrophils # Seg Neutrophils # Man Lymphocytes # (Manual) Monocytes # (Manual) Basophils # (Manual) Percent Retic PT INR APTT Heparin Anti-Xa Level POC ABG pH POC ABG pCO2 POC ABG pO2 Sodium Potassium Chloride Carbon Dioxide BUN Creatinine Glucose POC Glucose 197 H 128 H 41 L Calcium Phosphorus Iron TIBC Lactate Dehydrogenase Total Creatine Kinase NT-Pro-B Natriuret Pep Total Protein Albumin Rklbe-9-Lgsqwmrno Nbkkp-4-Cfardbnor Beta Globulins PEP Interpretation Cholesterol LDL Cholesterol Direct Vitamin B12 Urine WBC (Auto) Urine Creatinine Crossmatch 05/17/16 05/17/16 05/17/16 02:29 04:42 04:42 WBC 15.1 H RBC 3.42 L Hgb 9.1 L Hct 28.1 L MCV 82 L MCH 27 L MCHC RDW 18.1 H Plt Count 500 H Lymph % (Auto) 6.4 L [place] % (Auto) 9.3 H Lymph # 1.0 L [place] # 1.4 H Baso # Seg Neutrophils % 83.2 H Seg Neuts % (Manual) Lymphocytes % (Manual) Monocytes % (Manual) Seg Neutrophils # 12.6 H Seg Neutrophils # Man Lymphocytes # (Manual) Monocytes # (Manual) Basophils # (Manual) Percent Retic PT INR APTT Heparin Anti-Xa Level POC ABG pH POC ABG pCO2 POC ABG pO2 Sodium Potassium Chloride 107.7 H Carbon Dioxide BUN Creatinine 0.6 L Glucose 150 H POC Glucose 153 H Calcium 8.3 L Phosphorus Iron TIBC Lactate Dehydrogenase Total Creatine Kinase NT-Pro-B Natriuret Pep Total Protein Albumin Pdzrq-4-Vjbdaatyg Osbei-2-Ijajndhgu Beta Globulins PEP Interpretation Cholesterol LDL Cholesterol Direct Vitamin B12 Urine WBC (Auto) Urine Creatinine Crossmatch 05/17/16 05/17/16 05/17/16 11:02 17:33 23:38 WBC RBC Hgb Hct MCV MCH MCHC RDW Plt Count Lymph % (Auto) [place] % (Auto) Lymph # [place] # Baso # Seg Neutrophils % Seg Neuts % (Manual) Lymphocytes % (Manual) Monocytes % (Manual) Seg Neutrophils # Seg Neutrophils # Man Lymphocytes # (Manual) Monocytes # (Manual) Basophils # (Manual) Percent Retic PT INR APTT Heparin Anti-Xa Level POC ABG pH POC ABG pCO2 POC ABG pO2 Sodium Potassium Chloride Carbon Dioxide BUN Creatinine Glucose POC Glucose 195 H 201 H 135 H Calcium Phosphorus Iron TIBC Lactate Dehydrogenase Total Creatine Kinase NT-Pro-B Natriuret Pep Total Protein Albumin Tkuey-6-Wjcyqnecy Vwydp-7-Rciptozuf Beta Globulins PEP Interpretation Cholesterol LDL Cholesterol Direct Vitamin B12 Urine WBC (Auto) Urine Creatinine Crossmatch 05/18/16 05/18/16 05/18/16 04:08 04:08 06:12 WBC 13.4 H RBC 3.48 L Hgb 9.0 L Hct 28.6 L MCV 82 L MCH 26 L MCHC RDW 18.2 H Plt Count 532 H Lymph % (Auto) 11.4 L [place] % (Auto) 8.8 H Lymph # [place] # 1.2 H Baso # Seg Neutrophils % 77.6 H Seg Neuts % (Manual) Lymphocytes % (Manual) Monocytes % (Manual) Seg Neutrophils # 10.4 H Seg Neutrophils # Man Lymphocytes # (Manual) Monocytes # (Manual) Basophils # (Manual) Percent Retic PT INR APTT Heparin Anti-Xa Level POC ABG pH POC ABG pCO2 POC ABG pO2 Sodium Potassium Chloride Carbon Dioxide BUN 21 H Creatinine 0.5 L Glucose 136 H POC Glucose 157 H Calcium Phosphorus Iron TIBC Lactate Dehydrogenase Total Creatine Kinase NT-Pro-B Natriuret Pep Total Protein Albumin Gpkul-7-Kbifjeewo Tbplu-9-Ctenczhto Beta Globulins PEP Interpretation Cholesterol LDL Cholesterol Direct Vitamin B12 Urine WBC (Auto) Urine Creatinine Crossmatch
[2016-05-19] MEDS: DUONEB 0.5 MG-3 MG/3 ML SOLN IH SCH ×4 (01:44→19:52)
--- NOTE | 2016-05-19 05:18 | Progress Note ---
Assessment and Plan Assessment and plan: 1. Acute respiratory failure: Pulmonary consulted, T Peice in place, continue current care. 2. Acute CVA:Continue stroke protocol, Hold anticoagulation for now secondary to bleeding. 3. Sepsis Secondary to UTI:Sepsis protocol, IV abx, IVF, supportive care, 4. Encephalopathy: treat sepsis, supportive care, 5. Accelerated hypertension: Monitor bp q shift, continue current therapy. 6. CAD: No angina at this time, continue current care. 7. Seizure Disorder: Continue Keppra. 8. Diabetes: ADA diet, insulin, accu check 9. Oropharyngeal dysphagia. Status post PEG placement. The high probability of a clinically significant, sudden or life threatening deterioration of the [Pulmonary,Renal, Cardiac] system(s) required my full and direct attention, intervention and personal management. The aggregate critical care time was [55] minutes. This time is in addition to time spent performing reported procedures but includes the following: [x] Data Review and interpretation [x] Patient assessment and monitoring of vital signs [x] Documentation [x] Medication orders and management History Interval history: Pt lying in bed. NO reported nursing events overnight. T piece tolerated overnight without difficulty. Hospitalist Physical - Constitutional Vitals: Temp Pulse Resp BP Pulse Ox 98.7 F 87 26 H 141/89 100 05/19/16 04:00 05/19/16 04:00 05/19/16 04:00 05/19/16 04:00 05/19/16 04:00 General appearance: Present: no acute distress, other (tracheostomy) - Neck Neck: Present: supple - Respiratory Respiratory: negative: diminished - Cardiovascular Rhythm: regular Heart Sounds: Present: S1 & S2 - Extremities Extremities: no ischemia Extremity abnormal: edema Peripheral Pulses: within normal limits - Abdominal General gastrointestinal: soft, non-distended - Integumentary Integumentary: Present: clear, dry, decreased turgor - Psychiatric Psychiatric: no intact judgment & insight, no memory intact - Neurologic Neurologic: focal deficits, no gait normal Results - Labs CBC & Chem 7: 05/18/16 04:08 05/18/16 04:08 Labs: Laboratory Last Values WBC 13.4 K/mm3 (4.5-11.0) H 05/18/16 04:08 RBC 3.48 M/mm3 (3.65-5.03) L 05/18/16 04:08 Hgb 9.0 gm/dl (11.8-15.2) L 05/18/16 04:08 Hct 28.6 % (35.5-45.6) L 05/18/16 04:08 MCV 82 fl (84-94) L 05/18/16 04:08 MCH 26 pg (28-32) L 05/18/16 04:08 MCHC 32 % (32-34) 05/18/16 04:08 RDW 18.2 % (13.2-15.2) H 05/18/16 04:08 Plt Count 532 K/mm3 (140-440) H 05/18/16 04:08 Lymph % (Auto) 11.4 % (13.4-35.0) L 05/18/16 04:08 Yates % (Auto) 8.8 % (0.0-7.3) H 05/18/16 04:08 Eos % (Auto) 1.7 % (0.0-4.3) 05/18/16 04:08 Baso % (Auto) 0.5 % (0.0-1.8) 05/18/16 04:08 Lymph # 1.5 K/mm3 (1.2-5.4) 05/18/16 04:08 Yates # 1.2 K/mm3 (0.0-0.8) H 05/18/16 04:08 Eos # 0.2 K/mm3 (0.0-0.4) 05/18/16 04:08 Baso # 0.1 K/mm3 (0.0-0.1) 05/18/16 04:08 Add Manual Diff Complete 05/13/16 04:45 Total Counted 100 05/13/16 04:45 Seg Neutrophils % 77.6 % (40.0-70.0) H 05/18/16 04:08 Seg Neuts % (Manual) 76.0 % (40.0-70.0) H 05/13/16 04:45 Band Neutrophils % 3.0 % 05/13/16 04:45 Lymphocytes % (Manual) 11.0 % (13.4-35.0) L 05/13/16 04:45 Reactive Lymphs % (Man) 0 % 05/13/16 04:45 Monocytes % (Manual) 8.0 % (0.0-7.3) H 05/13/16 04:45 Eosinophils % (Manual) 1.0 % (0.0-4.3) 05/13/16 04:45 Basophils % (Manual) 1.0 % (0.0-1.8) 05/13/16 04:45 Metamyelocytes % 0 % 05/13/16 04:45 Myelocytes % 0 % 05/13/16 04:45 Promyelocytes % 0 % 05/13/16 04:45 Blast Cells % 0 % 05/13/16 04:45 Nucleated RBC % Not Reportable 05/13/16 04:45 Seg Neutrophils # 10.4 K/mm3 (1.8-7.7) H 05/18/16 04:08 Seg Neutrophils # Man 13.8 K/mm3 (1.8-7.7) H 05/13/16 04:45 Band Neutrophils # 0.5 K/mm3 05/13/16 04:45 Lymphocytes # (Manual) 2.0 K/mm3 (1.2-5.4) 05/13/16 04:45 Abs React Lymphs (Man) 0.0 K/mm3 05/13/16 04:45 Monocytes # (Manual) 1.4 K/mm3 (0.0-0.8) H 05/13/16 04:45 Eosinophils # (Manual) 0.2 K/mm3 (0.0-0.4) 05/13/16 04:45 Basophils # (Manual) 0.2 K/mm3 (0.0-0.1) H 05/13/16 04:45 Metamyelocytes # 0.0 K/mm3 05/13/16 04:45 Myelocytes # 0.0 K/mm3 05/13/16 04:45 Promyelocytes # 0.0 K/mm3 05/13/16 04:45 Blast Cells # 0.0 K/mm3 05/13/16 04:45 WBC Morphology Not Reportable 05/13/16 04:45 Hypersegmented Neuts Not Reportable 05/13/16 04:45 Hyposegmented Neuts Not Reportable 05/13/16 04:45 Hypogranular Neuts Not Reportable 05/13/16 04:45 Smudge Cells Not Reportable 05/13/16 04:45 Toxic Granulation Not Reportable 05/13/16 04:45 Toxic Vacuolation Not Reportable 05/13/16 04:45 Dohle Bodies Not Reportable 05/13/16 04:45 Pelger-Huet Anomaly Not Reportable 05/13/16 04:45 Corina Rods Not Reportable 05/13/16 04:45 Platelet Estimate Consistent w auto 05/13/16 04:45 Clumped Platelets Not Reportable 05/13/16 04:45 Plt Clumps, EDTA Not Reportable 05/13/16 04:45 Large Platelets Not Reportable 05/13/16 04:45 Giant Platelets Not Reportable 05/13/16 04:45 Platelet Satelliting Not Reportable 05/13/16 04:45 Plt Morphology Comment Not Reportable 05/13/16 04:45 RBC Morphology Not Reportable 05/13/16 04:45 Dimorphic RBCs Not Reportable 05/13/16 04:45 Polychromasia Rare 05/13/16 04:45 Hypochromasia Not Reportable 05/13/16 04:45 Poikilocytosis Not Reportable 05/13/16 04:45 Anisocytosis 1+ 05/13/16 04:45 Microcytosis Not Reportable 05/13/16 04:45 Macrocytosis Rare 05/13/16 04:45 Spherocytes Not Reportable 05/13/16 04:45 Pappenheimer Bodies Not Reportable 05/13/16 04:45 Sickle Cells Not Reportable 05/13/16 04:45 Target Cells Not Reportable 05/13/16 04:45 Tear Drop Cells Not Reportable 05/13/16 04:45 Ovalocytes Not Reportable 05/13/16 04:45 Helmet Cells Not Reportable 05/13/16 04:45 [place] Bodies Not Reportable 05/13/16 04:45 Ryder Rings Not Reportable 05/13/16 04:45 Tuan Cells Not Reportable 05/13/16 04:45 Bite Cells Not Reportable 05/13/16 04:45 Crenated Cell Not Reportable 05/13/16 04:45 Elliptocytes Not Reportable 05/13/16 04:45 Acanthocytes (Spur) Not Reportable 05/13/16 04:45 Rouleaux Not Reportable 05/13/16 04:45 Hemoglobin C Crystals Not Reportable 05/13/16 04:45 Schistocytes Not Reportable 05/13/16 04:45 Malaria parasites Not Reportable 05/13/16 04:45 Percent Retic 3.68 % (0.78-2.58) H 04/29/16 10:16 Gideon Bodies Not Reportable 05/13/16 04:45 Hem Pathologist Commnt No 05/13/16 04:45 PT 13.8 Sec. (12.2-14.9) 05/12/16 11:01 INR 1.07 (0.87-1.13) 05/12/16 11:01 APTT 27.2 Sec. (24.2-36.6) 05/12/16 11:01 Heparin Anti-Xa Level < 0.10 U.I./ml (0.3-0.7) L 05/13/16 18:06 POC ABG pH 7.491 (7.35-7.45) H 05/16/16 04:29 POC ABG pCO2 33.9 (35-45) L 05/16/16 04:29 POC ABG pO2 88 (80-105) 05/16/16 04:29 POC ABG HCO3 25.9 05/16/16 04:29 POC ABG Total CO2 27 05/16/16 04:29 POC ABG O2 Sat 98 05/16/16 04:29 POC ABG Base Excess 3 05/16/16 04:29 VBG pH 7.418 (7.320-7.420) 03/24/16 14:00 FiO2 25 % 05/16/16 04:29 Sodium 141 mmol/L (137-145) 05/18/16 04:08 Potassium 4.3 mmol/L (3.6-5.0) 05/18/16 04:08 Chloride 104.5 mmol/L (98-107) 05/18/16 04:08 Carbon Dioxide 24 mmol/L (22-30) 05/18/16 04:08 Anion Gap 17 mmol/L 05/18/16 04:08 BUN 21 mg/dL (9-20) H 05/18/16 04:08 Creatinine 0.5 mg/dL (0.8-1.5) L 05/18/16 04:08 Estimated GFR > 60 ml/min 05/18/16 04:08 BUN/Creatinine Ratio 42.00 % 05/18/16 04:08 Glucose 136 mg/dL (75-100) H 05/18/16 04:08 POC Glucose 120 (70-105) H 05/18/16 23:33 Hemoglobin A1c 9.6 % (4-6) H 03/24/16 14:00 Lactic Acid 1.6 mmol/L (0.7-2.0) 04/17/16 12:17 Calcium 8.4 mg/dL (8.4-10.2) 05/18/16 04:08 Phosphorus 3.1 mg/dL (2.5-4.5) 05/11/16 04:16 Magnesium 2.3 mg/dL (1.7-2.3) 05/11/16 04:16 Iron 10 ug/dL (49-181) L 04/29/16 10:16 TIBC 138 mcg/dL (250-450) L 04/29/16 10:16 Ferritin 336.4 ng/mL (13.0-400.0) 04/29/16 10:16 Total Bilirubin < 0.2 mg/dL (0.1-1.2) 04/27/16 04:21 AST 18 units/L (5-40) 04/27/16 04:21 ALT 39 units/L (7-56) 04/27/16 04:21 Alkaline Phosphatase 103 units/L (35-129) 04/27/16 04:21 Lactate Dehydrogenase 204 units/L (91-180) H 04/29/16 10:16 Total Creatine Kinase 356 units/L (55-170) H 03/28/16 13:29 Troponin T < 0.010 ng/mL (0.00-0.029) 03/28/16 13:29 NT-Pro-B Natriuret Pep 897.9 pg/mL (0-900) 04/03/16 04:10 Serum Total Protein 7.1 g/dL (6.1-8.1) 03/25/16 13:00 Total Protein 6.0 g/dL (6.3-8.2) L 04/27/16 04:21 Albumin 2.0 g/dL (3.9-5) L 04/27/16 04:21 Albumin/Globulin Ratio 0.5 % 04/27/16 04:21 [id number] See scanned report 03/31/16 12:20 [id number] See scanned report 03/31/16 12:20 Beta Globulins See scanned report 03/31/16 12:20 [id number] 2.46 mg/L (<=2.51) 03/25/16 13:00 Gamma Globulins See scanned report 03/31/16 12:20 Abnorm Protein Band 1 see below (()) 03/25/16 13:00 PEP Interpretation See scanned report 03/31/16 12:20 Triglycerides 88 mg/dL (2-149) 03/24/16 17:58 Cholesterol 221 mg/dL (50-199) H 03/24/16 17:58 LDL Cholesterol Direct 146 mg/dL (50-130) H 03/24/16 17:58 HDL Cholesterol 58 mg/dL (40-59) 03/24/16 17:58 Cholesterol/HDL Ratio 3.81 % 03/24/16 17:58 Vitamin B12 1005 pg/mL (211-911) H 04/29/16 10:16 Folate 12.78 ng/mL (7.3-26.0) 04/29/16 10:16 Urine Color Yellow (Yellow) 05/04/16 10:20 Urine Turbidity Cloudy (Clear) 05/04/16 10:20 Urine pH 5.0 (5.0-7.0) 05/04/16 10:20 Ur Specific Embarrass 1.017 (1.003-1.030) 05/04/16 10:20 Urine Protein 100 mg/dl mg/dL (Negative) 05/04/16 10:20 Urine Glucose (UA) >=500 mg/dL (Negative) 05/04/16 10:20 Urine Ketones Neg mg/dL (Negative) 05/04/16 10:20 Urine Blood Sm (Negative) 05/04/16 10:20 Urine Nitrite Neg (Negative) 05/04/16 10:20 Urine Bilirubin Neg (Negative) 05/04/16 10:20 Urine Urobilinogen 2.0 mg/dL (<2.0) 05/04/16 10:20 Ur Leukocyte Esterase Lg (Negative) 05/04/16 10:20 Urine WBC (Auto) > 182.0 /HPF (0.0-6.0) H 05/04/16 10:20 Urine RBC (Auto) 13.0 /HPF (0.0-6.0) 05/04/16 10:20 U Epithel Cells (Auto) < 1.0 /HPF (0-13.0) 05/04/16 10:20 Urine Bacteria (Auto) 1+ /HPF (Negative) 05/04/16 10:20 Urine WBC Clumps 3+ /HPF 05/04/16 10:20 Hyaline Casts 1 /LPF 03/24/16 14:27 Urine Mucus Few /HPF 05/04/16 10:20 Urine Yeast (Budding) 1+ /HPF 05/04/16 10:20 Ur Random Creatinine See scanned report 03/31/16 12:20 U Random Total Protein See scanned report 03/31/16 12:20 Urine Creatinine 85.5 mg/dL (0.1-20.0) H 04/20/16 11:50 Protein/Creatinin Ratio See scanned report 03/31/16 12:20 Urine Sodium 17 mEq/L 04/20/16 11:50 U Abnormal Prot Band 1 See scanned report 03/31/16 12:20 U Abnormal Prot Band 2 See scanned report 03/31/16 12:20 U Abnormal Prot Band 3 See scanned report 03/31/16 12:20 Ketones 1.0 mg/dL (0.2-2.8) 03/24/16 14:00 Blood Type A POSITIVE 05/09/16 19:47 Antibody Screen Negative 05/09/16 19:47 Crossmatch See Detail 05/09/16 19:47
[2016-05-19 05:21] LABS: Basophils % (Auto) 0.6 % (0.0-1.8); Eosinophils % (Auto) 1.4 % (0.0-4.3); Hematocrit 31.9 % (35.5-45.6); Hemoglobin 10.1 gm/dl (11.8-15.2); Mean Corpuscular HGB Conc 32 % (32-34); Mean Corpuscular Volume 81 fl (84-94); Platelet Count 576 K/mm3 (140-440); Red Blood Count 3.94 M/mm3 (3.65-5.03); Red Cell Distribution Width 17.8 % (13.2-15.2); White Blood Count 15.5 K/mm3 (4.5-11.0)
[2016-05-19 05:27] LABS: Mean Corpuscular Hemoglobin 26 pg (28-32)
[2016-05-19 05:43] LABS: Anion Gap 19 mmol/L; Blood Urea Nitrogen 19 mg/dL (9-20); Carbon Dioxide 24 mmol/L (22-30); Chloride 101.1 mmol/L (98-107); Glucose 133 mg/dL (75-100); Potassium 4.3 mmol/L (3.6-5.0); Sodium 140 mmol/L (137-145)
[2016-05-19] MEDS: NORMODYNE PO SCH ×3 (08:17→20:56)
--- NOTE | 2016-05-19 09:24 | Progress Note ---
Assessment and Plan 61 y/o male with acute encephalopathy, secondary to embolic strokes, now with acute respiratory failure requiring re-intubation. 1. Hopeful transfer to floor to remain on T-piece 2. Patient had bleeding last week around trach site. Now recommended that anticoagulation be held indefinitely. Currently heparin is off. No further bleeding and tolerating T-piece 3. Follow up with CM in regards to funding. Subjective Date of service: 05/19/16 Principal diagnosis: CVA, acute respiratory failure Interval history: No acute events. Stable on T-Piece Objective Vital Signs - 12hr 05/18/16 05/18/16 05/18/16 21:27 21:59 22:00 Temperature Pulse Rate 79 77 Pulse Rate [ Apical] Pulse Rate [ Bilateral] Respiratory 26 H Rate Respiratory Rate [Bilateral ] Blood Pressure 121/71 140/83 O2 Sat by Pulse 99 Oximetry O2 Sat by Pulse 100 Oximetry [ Assessment] 05/18/16 05/18/16 05/19/16 22:18 23:00 00:00 Temperature 99.0 F Pulse Rate 80 81 83 Pulse Rate [ 81 Apical] Pulse Rate [ Bilateral] Respiratory 27 H 27 H 27 H Rate Respiratory Rate [Bilateral ] Blood Pressure 140/83 136/81 133/81 O2 Sat by Pulse 100 98 Oximetry O2 Sat by Pulse Oximetry [ Assessment] 05/19/16 05/19/16 05/19/16 01:00 01:14 01:46 Temperature Pulse Rate 83 81 Pulse Rate [ Apical] Pulse Rate [ 79 Bilateral] Respiratory 28 H 23 Rate Respiratory 24 Rate [Bilateral ] Blood Pressure 138/83 138/83 O2 Sat by Pulse 100 100 Oximetry O2 Sat by Pulse Oximetry [ Assessment] 05/19/16 05/19/16 05/19/16 02:00 02:01 03:02 Temperature Pulse Rate 85 94 H Pulse Rate [ Apical] Pulse Rate [ 81 Bilateral] Respiratory 31 H 33 H Rate Respiratory 24 Rate [Bilateral ] Blood Pressure 148/87 148/87 O2 Sat by Pulse 99 100 Oximetry O2 Sat by Pulse Oximetry [ Assessment] 05/19/16 05/19/16 05/19/16 04:00 06:00 07:55 Temperature 98.7 F Pulse Rate 88 Pulse Rate [ 87 Apical] Pulse Rate [ 94 H Bilateral] Respiratory 26 H Rate Respiratory 24 Rate [Bilateral ] Blood Pressure 141/89 O2 Sat by Pulse 100 Oximetry O2 Sat by Pulse 100 Oximetry [ Assessment] 05/19/16 05/19/16 05/19/16 07:57 07:58 08:00 Temperature 98.2 F Pulse Rate Pulse Rate [ Apical] Pulse Rate [ Bilateral] Respiratory Rate Respiratory Rate [Bilateral ] Blood Pressure O2 Sat by Pulse 99 Oximetry O2 Sat by Pulse 99 Oximetry [ Assessment] 05/19/16 05/19/16 08:01 08:17 Temperature Pulse Rate 94 H Pulse Rate [ Apical] Pulse Rate [ Bilateral] Respiratory Rate Respiratory Rate [Bilateral ] Blood Pressure 141/85 O2 Sat by Pulse 99 Oximetry O2 Sat by Pulse Oximetry [ Assessment] Constitutional: no acute distress, other (opens eyes, not following commands for me) Eyes: non-icteric ENT: other (tracheotomy) Neck: supple, other (no bleeding at trach site) Effort: normal Ascultation: Bilateral: clear, rhonchi (occasional), other (coarse BS bilaterally) Percussion: Bilateral: not dull Cardiovascular: regular rate and rhythm, murmur noted Gastrointestinal: normoactive bowel sounds, soft, non-tender Extremities: no cyanosis, no edema Neurologic: other (eyes open, not following commands or moving extremities for me) Psychiatric: other (unable to assess) CBC and BMP: 05/19/16 04:32 05/19/16 04:32 ABG, PT/INR, D-dimer: ABG POC ABG pH 7.491 (7.35-7.45) H 05/16/16 04:29 POC ABG pCO2 33.9 (35-45) L 05/16/16 04:29 POC ABG pO2 88 (80-105) 05/16/16 04:29 POC ABG HCO3 25.9 05/16/16 04:29 POC ABG Total CO2 27 05/16/16 04:29 POC ABG O2 Sat 98 05/16/16 04:29 PT/INR, D-dimer PT 13.8 Sec. (12.2-14.9) 05/12/16 11:01 INR 1.07 (0.87-1.13) 05/12/16 11:01 Abnormal lab findings: Abnormal Labs 03/24/16 03/24/16 03/24/16 17:58 20:25 23:23 WBC RBC Hgb Hct MCV MCH MCHC RDW Plt Count Lymph % (Auto) [place] % (Auto) Lymph # [place] # Baso # Seg Neutrophils % Seg Neuts % (Manual) Lymphocytes % (Manual) Monocytes % (Manual) Seg Neutrophils # Seg Neutrophils # Man Lymphocytes # (Manual) Monocytes # (Manual) Basophils # (Manual) Percent Retic PT INR APTT Heparin Anti-Xa Level POC ABG pH POC ABG pCO2 POC ABG pO2 Sodium 169 H* Potassium 3.5 L Chloride 130.3 H Carbon Dioxide BUN 28 H Creatinine 1.8 H Glucose POC Glucose 112 H Calcium Phosphorus Iron TIBC Lactate Dehydrogenase Total Creatine Kinase NT-Pro-B Natriuret Pep Total Protein Albumin Mdrjk-9-Bkvkwzlmm Udrvn-3-Irydhpnre Beta Globulins PEP Interpretation Cholesterol 221 H LDL Cholesterol Direct 146 H Vitamin B12 Urine WBC (Auto) Urine Creatinine Crossmatch 03/25/16 03/25/16 03/25/16 05:56 05:56 05:56 WBC 21.3 H RBC 6.32 H Hgb 16.7 H Hct 52.7 H MCV 83 L MCH 27 L MCHC RDW Plt Count Lymph % (Auto) [place] % (Auto) Lymph # [place] # Baso # Seg Neutrophils % Seg Neuts % (Manual) 91.0 H Lymphocytes % (Manual) 4.0 L Monocytes % (Manual) Seg Neutrophils # Seg Neutrophils # Man 19.4 H Lymphocytes # (Manual) 0.9 L Monocytes # (Manual) 0.9 H Basophils # (Manual) Percent Retic PT INR APTT Heparin Anti-Xa Level POC ABG pH POC ABG pCO2 POC ABG pO2 Sodium 172 H* Potassium 3.5 L Chloride 130.4 H Carbon Dioxide BUN 29 H Creatinine 1.8 H Glucose 187 H POC Glucose Calcium Phosphorus Iron TIBC Lactate Dehydrogenase 460 H Total Creatine Kinase NT-Pro-B Natriuret Pep Total Protein Albumin Ngcnd-5-Ihnfdxech Fejtd-1-Xuyvnrfzx Beta Globulins PEP Interpretation Cholesterol LDL Cholesterol Direct Vitamin B12 Urine WBC (Auto) Urine Creatinine Crossmatch 03/25/16 03/25/16 03/25/16 07:55 12:19 13:00 WBC RBC Hgb Hct MCV MCH MCHC RDW Plt Count Lymph % (Auto) [place] % (Auto) Lymph # [place] # Baso # Seg Neutrophils % Seg Neuts % (Manual) Lymphocytes % (Manual) Monocytes % (Manual) Seg Neutrophils # Seg Neutrophils # Man Lymphocytes # (Manual) Monocytes # (Manual) Basophils # (Manual) Percent Retic PT INR APTT Heparin Anti-Xa Level POC ABG pH POC ABG pCO2 POC ABG pO2 Sodium Potassium Chloride Carbon Dioxide BUN Creatinine Glucose POC Glucose 231 H 314 H Calcium Phosphorus Iron TIBC Lactate Dehydrogenase Total Creatine Kinase NT-Pro-B Natriuret Pep Total Protein Albumin 3.4 L Uvbrp-3-Nkfiyuylm 0.4 H Iberl-7-Rjzqycyvo 1.1 H Beta Globulins 0.6 H PEP Interpretation see below H Cholesterol LDL Cholesterol Direct Vitamin B12 Urine WBC (Auto) Urine Creatinine Crossmatch 03/25/16 03/25/16 03/26/16 16:41 22:45 08:32 WBC RBC Hgb Hct MCV MCH MCHC RDW Plt Count Lymph % (Auto) [place] % (Auto) Lymph # [place] # Baso # Seg Neutrophils % Seg Neuts % (Manual) Lymphocytes % (Manual) Monocytes % (Manual) Seg Neutrophils # Seg Neutrophils # Man Lymphocytes # (Manual) Monocytes # (Manual) Basophils # (Manual) Percent Retic PT INR APTT Heparin Anti-Xa Level POC ABG pH POC ABG pCO2 POC ABG pO2 Sodium Potassium Chloride Carbon Dioxide BUN Creatinine Glucose POC Glucose 444 H 326 H 360 H Calcium Phosphorus Iron TIBC Lactate Dehydrogenase Total Creatine Kinase NT-Pro-B Natriuret Pep Total Protein Albumin Ftvjj-7-Ivpmotywp Laact-7-Euymiqueh Beta Globulins PEP Interpretation Cholesterol LDL Cholesterol Direct Vitamin B12 Urine WBC (Auto) Urine Creatinine Crossmatch 03/26/16 03/26/16 03/26/16 12:38 15:33 15:47 WBC RBC Hgb Hct MCV MCH MCHC RDW Plt Count Lymph % (Auto) [place] % (Auto) Lymph # [place] # Baso # Seg Neutrophils % Seg Neuts % (Manual) Lymphocytes % (Manual) Monocytes % (Manual) Seg Neutrophils # Seg Neutrophils # Man Lymphocytes # (Manual) Monocytes # (Manual) Basophils # (Manual) Percent Retic PT INR APTT Heparin Anti-Xa Level POC ABG pH 7.511 H POC ABG pCO2 26.5 L POC ABG pO2 70 L Sodium Potassium Chloride Carbon Dioxide BUN Creatinine Glucose POC Glucose 280 H 174 H Calcium Phosphorus Iron TIBC Lactate Dehydrogenase Total Creatine Kinase NT-Pro-B Natriuret Pep Total Protein Albumin Wjemv-4-Qqcnzlrgm Dbwui-0-Ykxlzscdu Beta Globulins PEP Interpretation Cholesterol LDL Cholesterol Direct Vitamin B12 Urine WBC (Auto) Urine Creatinine Crossmatch 03/26/16 03/26/16 03/26/16 16:47 16:47 18:51 WBC 14.0 H RBC 5.17 H Hgb Hct MCV MCH 26 L MCHC 31 L RDW Plt Count 139 L Lymph % (Auto) [place] % (Auto) Lymph # [place] # Baso # Seg Neutrophils % Seg Neuts % (Manual) Lymphocytes % (Manual) Monocytes % (Manual) Seg Neutrophils # Seg Neutrophils # Man Lymphocytes # (Manual) Monocytes # (Manual) Basophils # (Manual) Percent Retic PT INR APTT Heparin Anti-Xa Level POC ABG pH POC ABG pCO2 33.9 L POC ABG pO2 150 H Sodium 164 H* Potassium 3.4 L Chloride 128.5 H Carbon Dioxide BUN 30 H Creatinine 2.2 H Glucose 121 H POC Glucose Calcium 8.1 L Phosphorus Iron TIBC Lactate Dehydrogenase Total Creatine Kinase NT-Pro-B Natriuret Pep Total Protein Albumin Uojnz-4-Grxrrzwar Xgdmm-1-Asydltgsw Beta Globulins PEP Interpretation Cholesterol LDL Cholesterol Direct Vitamin B12 Urine WBC (Auto) Urine Creatinine Crossmatch 03/27/16 03/27/16 03/27/16 02:19 05:47 06:02 WBC RBC Hgb Hct MCV MCH MCHC RDW Plt Count Lymph % (Auto) [place] % (Auto) Lymph # [place] # Baso # Seg Neutrophils % Seg Neuts % (Manual) Lymphocytes % (Manual) Monocytes % (Manual) Seg Neutrophils # Seg Neutrophils # Man Lymphocytes # (Manual) Monocytes # (Manual) Basophils # (Manual) Percent Retic PT INR APTT Heparin Anti-Xa Level POC ABG pH POC ABG pCO2 27.3 L 30.3 L POC ABG pO2 50 L 112 H Sodium 158 H Potassium Chloride 126.7 H Carbon Dioxide 20 L BUN 25 H Creatinine 1.7 H Glucose POC Glucose Calcium 7.0 L Phosphorus Iron TIBC Lactate Dehydrogenase Total Creatine Kinase NT-Pro-B Natriuret Pep Total Protein Albumin Zjtey-3-Mdxrjhrog Krdnh-5-Ypbtwmtzz Beta Globulins PEP Interpretation Cholesterol LDL Cholesterol Direct Vitamin B12 Urine WBC (Auto) Urine Creatinine Crossmatch 03/27/16 03/27/16 03/27/16 07:51 09:20 11:45 WBC 14.2 H RBC Hgb Hct MCV 83 L MCH 27 L MCHC RDW Plt Count 113 L Lymph % (Auto) [place] % (Auto) Lymph # [place] # Baso # Seg Neutrophils % Seg Neuts % (Manual) Lymphocytes % (Manual) Monocytes % (Manual) Seg Neutrophils # Seg Neutrophils # Man Lymphocytes # (Manual) Monocytes # (Manual) Basophils # (Manual) Percent Retic PT INR APTT Heparin Anti-Xa Level POC ABG pH POC ABG pCO2 POC ABG pO2 Sodium Potassium Chloride Carbon Dioxide BUN Creatinine Glucose POC Glucose 124 H 241 H Calcium Phosphorus Iron TIBC Lactate Dehydrogenase Total Creatine Kinase NT-Pro-B Natriuret Pep Total Protein Albumin Plhjy-5-Kxwmxjcjr Dsfob-9-Wsjkyiqzk Beta Globulins PEP Interpretation Cholesterol LDL Cholesterol Direct Vitamin B12 Urine WBC (Auto) Urine Creatinine Crossmatch 03/27/16 03/27/16 03/28/16 16:39 22:03 03:29 WBC RBC Hgb Hct MCV MCH MCHC RDW Plt Count Lymph % (Auto) [place] % (Auto) Lymph # [place] # Baso # Seg Neutrophils % Seg Neuts % (Manual) Lymphocytes % (Manual) Monocytes % (Manual) Seg Neutrophils # Seg Neutrophils # Man Lymphocytes # (Manual) Monocytes # (Manual) Basophils # (Manual) Percent Retic PT INR APTT Heparin Anti-Xa Level POC ABG pH POC ABG pCO2 POC ABG pO2 Sodium Potassium Chloride Carbon Dioxide BUN Creatinine Glucose POC Glucose 266 H 167 H 241 H Calcium Phosphorus Iron TIBC Lactate Dehydrogenase Total Creatine Kinase NT-Pro-B Natriuret Pep Total Protein Albumin Azjaq-0-Bszexrokx Vuiyz-1-Xodvwprey Beta Globulins PEP Interpretation Cholesterol LDL Cholesterol Direct Vitamin B12 Urine WBC (Auto) Urine Creatinine Crossmatch 03/28/16 03/28/16 03/28/16 05:00 05:00 05:00 WBC RBC Hgb Hct MCV 83 L MCH 27 L MCHC RDW Plt Count 106 L Lymph % (Auto) [place] % (Auto) 10.1 H Lymph # [place] # 1.0 H Baso # Seg Neutrophils % 75.1 H Seg Neuts % (Manual) Lymphocytes % (Manual) Monocytes % (Manual) Seg Neutrophils # Seg Neutrophils # Man Lymphocytes # (Manual) Monocytes # (Manual) Basophils # (Manual) Percent Retic PT INR APTT Heparin Anti-Xa Level POC ABG pH POC ABG pCO2 POC ABG pO2 Sodium 147 H D Potassium 3.1 L D Chloride 112.3 H Carbon Dioxide 21 L BUN Creatinine Glucose 208 H POC Glucose Calcium 7.0 L Phosphorus 2.2 L Iron TIBC Lactate Dehydrogenase Total Creatine Kinase NT-Pro-B Natriuret Pep Total Protein Albumin Dhnvk-0-Stvulstsk Yeqft-1-Mxsknblem Beta Globulins PEP Interpretation Cholesterol LDL Cholesterol Direct Vitamin B12 Urine WBC (Auto) Urine Creatinine Crossmatch 03/28/16 03/28/16 03/28/16 05:14 08:41 10:56 WBC RBC Hgb Hct MCV MCH MCHC RDW Plt Count Lymph % (Auto) [place] % (Auto) Lymph # [place] # Baso # Seg Neutrophils % Seg Neuts % (Manual) Lymphocytes % (Manual) Monocytes % (Manual) Seg Neutrophils # Seg Neutrophils # Man Lymphocytes # (Manual) Monocytes # (Manual) Basophils # (Manual) Percent Retic PT INR APTT Heparin Anti-Xa Level POC ABG pH 7.457 H POC ABG pCO2 29.7 L 27.7 L POC ABG pO2 Sodium Potassium Chloride Carbon Dioxide BUN Creatinine Glucose POC Glucose 228 H Calcium Phosphorus Iron TIBC Lactate Dehydrogenase Total Creatine Kinase NT-Pro-B Natriuret Pep Total Protein Albumin Ptjod-0-Gwnnfznro Okvho-6-Jdmvihxta Beta Globulins PEP Interpretation Cholesterol LDL Cholesterol Direct Vitamin B12 Urine WBC (Auto) Urine Creatinine Crossmatch 03/28/16 03/28/16 03/28/16 11:37 13:29 16:22 WBC RBC Hgb Hct MCV MCH MCHC RDW Plt Count Lymph % (Auto) [place] % (Auto) Lymph # [place] # Baso # Seg Neutrophils % Seg Neuts % (Manual) Lymphocytes % (Manual) Monocytes % (Manual) Seg Neutrophils # Seg Neutrophils # Man Lymphocytes # (Manual) Monocytes # (Manual) Basophils # (Manual) Percent Retic PT INR APTT Heparin Anti-Xa Level POC ABG pH POC ABG pCO2 POC ABG pO2 Sodium Potassium Chloride Carbon Dioxide BUN Creatinine Glucose POC Glucose 226 H 200 H Calcium Phosphorus Iron TIBC Lactate Dehydrogenase Total Creatine Kinase 356 H NT-Pro-B Natriuret Pep Total Protein Albumin Uiopq-1-Tktpswhdb Fzqat-9-Rrcqmawsj Beta Globulins PEP Interpretation Cholesterol LDL Cholesterol Direct Vitamin B12 Urine WBC (Auto) Urine Creatinine Crossmatch 03/28/16 03/29/16 03/29/16 21:48 04:50 04:50 WBC RBC Hgb 11.5 L Hct 35.3 L MCV 81 L MCH 26 L MCHC RDW Plt Count 97 L Lymph % (Auto) [place] % (Auto) 11.7 H Lymph # [place] # 1.1 H Baso # Seg Neutrophils % Seg Neuts % (Manual) Lymphocytes % (Manual) Monocytes % (Manual) Seg Neutrophils # Seg Neutrophils # Man Lymphocytes # (Manual) Monocytes # (Manual) Basophils # (Manual) Percent Retic PT INR APTT Heparin Anti-Xa Level POC ABG pH POC ABG pCO2 POC ABG pO2 Sodium 136 L D Potassium 3.3 L Chloride Carbon Dioxide 20 L BUN Creatinine Glucose 386 H POC Glucose 188 H Calcium 6.8 L Phosphorus 1.6 L D Iron TIBC Lactate Dehydrogenase Total Creatine Kinase NT-Pro-B Natriuret Pep Total Protein Albumin Meqob-8-Npfqgdgct Ehqkp-5-Kdyrucqws Beta Globulins PEP Interpretation Cholesterol LDL Cholesterol Direct Vitamin B12 Urine WBC (Auto) Urine Creatinine Crossmatch 03/29/16 03/29/16 03/29/16 08:10 11:12 16:09 WBC RBC Hgb Hct MCV MCH MCHC RDW Plt Count Lymph % (Auto) [place] % (Auto) Lymph # [place] # Baso # Seg Neutrophils % Seg Neuts % (Manual) Lymphocytes % (Manual) Monocytes % (Manual) Seg Neutrophils # Seg Neutrophils # Man Lymphocytes # (Manual) Monocytes # (Manual) Basophils # (Manual) Percent Retic PT INR APTT Heparin Anti-Xa Level POC ABG pH POC ABG pCO2 POC ABG pO2 Sodium Potassium Chloride Carbon Dioxide BUN Creatinine Glucose POC Glucose 230 H 180 H 46 L Calcium Phosphorus Iron TIBC Lactate Dehydrogenase Total Creatine Kinase NT-Pro-B Natriuret Pep Total Protein Albumin Qgwva-2-Hnvkjmfgx Utwlo-7-Aopczfrzv Beta Globulins PEP Interpretation Cholesterol LDL Cholesterol Direct Vitamin B12 Urine WBC (Auto) Urine Creatinine Crossmatch 03/29/16 03/29/16 03/30/16 16:12 18:15 02:53 WBC RBC Hgb Hct MCV MCH MCHC RDW Plt Count Lymph % (Auto) [place] % (Auto) Lymph # [place] # Baso # Seg Neutrophils % Seg Neuts % (Manual) Lymphocytes % (Manual) Monocytes % (Manual) Seg Neutrophils # Seg Neutrophils # Man Lymphocytes # (Manual) Monocytes # (Manual) Basophils # (Manual) Percent Retic PT INR APTT Heparin Anti-Xa Level POC ABG pH POC ABG pCO2 POC ABG pO2 Sodium Potassium Chloride Carbon Dioxide BUN Creatinine Glucose POC Glucose 52 L 118 H 130 H Calcium Phosphorus Iron TIBC Lactate Dehydrogenase Total Creatine Kinase NT-Pro-B Natriuret Pep Total Protein Albumin Gryzs-7-Ulcscrfpn Sxrrb-8-Qzdvzywlx Beta Globulins PEP Interpretation Cholesterol LDL Cholesterol Direct Vitamin B12 Urine WBC (Auto) Urine Creatinine Crossmatch 03/30/16 03/30/16 03/30/16 04:00 04:00 05:29 WBC RBC Hgb Hct MCV 81 L MCH 26 L MCHC RDW Plt Count 116 L Lymph % (Auto) 10.8 L [place] % (Auto) 13.1 H Lymph # 1.0 L [place] # 1.3 H Baso # Seg Neutrophils % 74.2 H Seg Neuts % (Manual) Lymphocytes % (Manual) Monocytes % (Manual) Seg Neutrophils # Seg Neutrophils # Man Lymphocytes # (Manual) Monocytes # (Manual) Basophils # (Manual) Percent Retic PT INR APTT Heparin Anti-Xa Level POC ABG pH 7.522 H POC ABG pCO2 22.7 L POC ABG pO2 137 H Sodium 147 H D Potassium Chloride 115.5 H Carbon Dioxide 20 L BUN Creatinine Glucose 116 H POC Glucose Calcium 7.6 L Phosphorus 2.3 L D Iron TIBC Lactate Dehydrogenase Total Creatine Kinase NT-Pro-B Natriuret Pep Total Protein Albumin Hsmft-3-Auowggtax Lpixh-5-Fhwzuyema Beta Globulins PEP Interpretation Cholesterol LDL Cholesterol Direct Vitamin B12 Urine WBC (Auto) Urine Creatinine Crossmatch 03/30/16 03/30/16 03/30/16 05:47 08:05 08:59 WBC RBC Hgb Hct MCV MCH MCHC RDW Plt Count Lymph % (Auto) [place] % (Auto) Lymph # [place] # Baso # Seg Neutrophils % Seg Neuts % (Manual) Lymphocytes % (Manual) Monocytes % (Manual) Seg Neutrophils # Seg Neutrophils # Man Lymphocytes # (Manual) Monocytes # (Manual) Basophils # (Manual) Percent Retic PT INR APTT Heparin Anti-Xa Level POC ABG pH POC ABG pCO2 26.2 L POC ABG pO2 115 H Sodium Potassium Chloride Carbon Dioxide BUN Creatinine Glucose POC Glucose 138 H 171 H Calcium Phosphorus Iron TIBC Lactate Dehydrogenase Total Creatine Kinase NT-Pro-B Natriuret Pep Total Protein Albumin Szaud-2-Ogiidilrj Ykvmk-5-Saamsjkfn Beta Globulins PEP Interpretation Cholesterol LDL Cholesterol Direct Vitamin B12 Urine WBC (Auto) Urine Creatinine Crossmatch 03/30/16 03/30/16 03/30/16 12:11 12:11 16:39 WBC RBC Hgb Hct MCV MCH MCHC RDW Plt Count Lymph % (Auto) [place] % (Auto) Lymph # [place] # Baso # Seg Neutrophils % Seg Neuts % (Manual) Lymphocytes % (Manual) Monocytes % (Manual) Seg Neutrophils # Seg Neutrophils # Man Lymphocytes # (Manual) Monocytes # (Manual) Basophils # (Manual) Percent Retic PT INR APTT Heparin Anti-Xa Level POC ABG pH 7.476 H POC ABG pCO2 29.0 L POC ABG pO2 Sodium Potassium Chloride Carbon Dioxide BUN Creatinine Glucose POC Glucose 142 H 59 L Calcium Phosphorus Iron TIBC Lactate Dehydrogenase Total Creatine Kinase NT-Pro-B Natriuret Pep Total Protein Albumin Zdzjx-0-Unlzluuha Ocmjk-6-Dngjzubqq Beta Globulins PEP Interpretation Cholesterol LDL Cholesterol Direct Vitamin B12 Urine WBC (Auto) Urine Creatinine Crossmatch 03/30/16 03/30/16 03/31/16 18:41 21:59 05:02 WBC RBC Hgb Hct MCV MCH MCHC RDW Plt Count Lymph % (Auto) [place] % (Auto) Lymph # [place] # Baso # Seg Neutrophils % Seg Neuts % (Manual) Lymphocytes % (Manual) Monocytes % (Manual) Seg Neutrophils # Seg Neutrophils # Man Lymphocytes # (Manual) Monocytes # (Manual) Basophils # (Manual) Percent Retic PT INR APTT Heparin Anti-Xa Level POC ABG pH 7.519 H POC ABG pCO2 21.8 L POC ABG pO2 142 H Sodium Potassium Chloride Carbon Dioxide BUN Creatinine Glucose POC Glucose 145 H 154 H Calcium Phosphorus Iron TIBC Lactate Dehydrogenase Total Creatine Kinase NT-Pro-B Natriuret Pep Total Protein Albumin Tqecf-4-Vfdvzcvtd Lcoxj-7-Nogvkiadg Beta Globulins PEP Interpretation Cholesterol LDL Cholesterol Direct Vitamin B12 Urine WBC (Auto) Urine Creatinine Crossmatch 03/31/16 03/31/16 03/31/16 05:15 05:15 05:15 WBC 13.4 H RBC 5.21 H Hgb Hct MCV 81 L MCH 26 L MCHC RDW Plt Count Lymph % (Auto) 9.5 L [place] % (Auto) 14.0 H Lymph # [place] # 1.9 H Baso # Seg Neutrophils % 75.0 H Seg Neuts % (Manual) Lymphocytes % (Manual) Monocytes % (Manual) Seg Neutrophils # 10.1 H Seg Neutrophils # Man Lymphocytes # (Manual) Monocytes # (Manual) Basophils # (Manual) Percent Retic PT INR APTT Heparin Anti-Xa Level POC ABG pH POC ABG pCO2 POC ABG pO2 Sodium Potassium Chloride 108.5 H Carbon Dioxide 19 L BUN Creatinine Glucose 188 H POC Glucose Calcium Phosphorus Iron TIBC Lactate Dehydrogenase Total Creatine Kinase NT-Pro-B Natriuret Pep 1089 H Total Protein Albumin Dhzek-3-Tqcpamaoi Qlssl-2-Bnbunrczn Beta Globulins PEP Interpretation Cholesterol LDL Cholesterol Direct Vitamin B12 Urine WBC (Auto) Urine Creatinine Crossmatch 03/31/16 03/31/16 03/31/16 07:23 11:12 15:20 WBC RBC Hgb Hct MCV MCH MCHC RDW Plt Count Lymph % (Auto) [place] % (Auto) Lymph # [place] # Baso # Seg Neutrophils % Seg Neuts % (Manual) Lymphocytes % (Manual) Monocytes % (Manual) Seg Neutrophils # Seg Neutrophils # Man Lymphocytes # (Manual) Monocytes # (Manual) Basophils # (Manual) Percent Retic PT INR APTT Heparin Anti-Xa Level POC ABG pH POC ABG pCO2 POC ABG pO2 Sodium Potassium Chloride Carbon Dioxide BUN Creatinine Glucose POC Glucose 233 H 228 H 208 H Calcium Phosphorus Iron TIBC Lactate Dehydrogenase Total Creatine Kinase NT-Pro-B Natriuret Pep Total Protein Albumin Zoufl-9-Kvvlinkrx Nfuva-1-Zvathrjrt Beta Globulins PEP Interpretation Cholesterol LDL Cholesterol Direct Vitamin B12 Urine WBC (Auto) Urine Creatinine Crossmatch 03/31/16 04/01/16 04/01/16 21:27 04:41 05:35 WBC 12.1 H RBC Hgb Hct MCV 81 L MCH 26 L MCHC RDW Plt Count Lymph % (Auto) 8.5 L [place] % (Auto) 14.0 H Lymph # 1.0 L [place] # 1.7 H Baso # Seg Neutrophils % 76.2 H Seg Neuts % (Manual) Lymphocytes % (Manual) Monocytes % (Manual) Seg Neutrophils # 9.2 H Seg Neutrophils # Man Lymphocytes # (Manual) Monocytes # (Manual) Basophils # (Manual) Percent Retic PT INR APTT Heparin Anti-Xa Level POC ABG pH 7.455 H POC ABG pCO2 31.0 L POC ABG pO2 Sodium Potassium Chloride Carbon Dioxide BUN Creatinine Glucose POC Glucose 162 H Calcium Phosphorus Iron TIBC Lactate Dehydrogenase Total Creatine Kinase NT-Pro-B Natriuret Pep Total Protein Albumin Gnsyb-7-Avynxffsq Ijaqx-3-Ywmdxhokf Beta Globulins PEP Interpretation Cholesterol LDL Cholesterol Direct Vitamin B12 Urine WBC (Auto) Urine Creatinine Crossmatch 04/01/16 04/01/16 04/01/16 05:35 08:44 12:49 WBC RBC Hgb Hct MCV MCH MCHC RDW Plt Count Lymph % (Auto) [place] % (Auto) Lymph # [place] # Baso # Seg Neutrophils % Seg Neuts % (Manual) Lymphocytes % (Manual) Monocytes % (Manual) Seg Neutrophils # Seg Neutrophils # Man Lymphocytes # (Manual) Monocytes # (Manual) Basophils # (Manual) Percent Retic PT INR APTT Heparin Anti-Xa Level POC ABG pH POC ABG pCO2 POC ABG pO2 Sodium Potassium Chloride Carbon Dioxide BUN Creatinine Glucose 256 H POC Glucose 257 H 279 H Calcium 8.0 L Phosphorus Iron TIBC Lactate Dehydrogenase Total Creatine Kinase NT-Pro-B Natriuret Pep 1205 H Total Protein Albumin Dwggc-0-Nykmcphnn Gaquj-7-Jncerdypf Beta Globulins PEP Interpretation Cholesterol LDL Cholesterol Direct Vitamin B12 Urine WBC (Auto) Urine Creatinine Crossmatch 04/01/16 04/02/16 04/02/16 18:12 00:42 04:17 WBC RBC Hgb Hct MCV MCH MCHC RDW Plt Count Lymph % (Auto) [place] % (Auto) Lymph # [place] # Baso # Seg Neutrophils % Seg Neuts % (Manual) Lymphocytes % (Manual) Monocytes % (Manual) Seg Neutrophils # Seg Neutrophils # Man Lymphocytes # (Manual) Monocytes # (Manual) Basophils # (Manual) Percent Retic PT INR APTT Heparin Anti-Xa Level POC ABG pH 7.582 H POC ABG pCO2 26.8 L POC ABG pO2 Sodium Potassium Chloride Carbon Dioxide BUN Creatinine Glucose POC Glucose 168 H 282 H Calcium Phosphorus Iron TIBC Lactate Dehydrogenase Total Creatine Kinase NT-Pro-B Natriuret Pep Total Protein Albumin Zjady-2-Xisjsfjfu Dkozt-5-Ezvtnqbdh Beta Globulins PEP Interpretation Cholesterol LDL Cholesterol Direct Vitamin B12 Urine WBC (Auto) Urine Creatinine Crossmatch 04/02/16 04/02/16 04/02/16 05:00 05:00 06:27 WBC 12.4 H RBC Hgb Hct MCV 81 L MCH 26 L MCHC RDW Plt Count Lymph % (Auto) 6.4 L [place] % (Auto) 13.3 H Lymph # 0.8 L [place] # 1.7 H Baso # Seg Neutrophils % 79.4 H Seg Neuts % (Manual) Lymphocytes % (Manual) Monocytes % (Manual) Seg Neutrophils # 9.9 H Seg Neutrophils # Man Lymphocytes # (Manual) Monocytes # (Manual) Basophils # (Manual) Percent Retic PT INR APTT Heparin Anti-Xa Level POC ABG pH POC ABG pCO2 POC ABG pO2 Sodium 146 H Potassium Chloride Carbon Dioxide BUN Creatinine Glucose 334 H POC Glucose 317 H Calcium 8.0 L Phosphorus Iron TIBC Lactate Dehydrogenase Total Creatine Kinase NT-Pro-B Natriuret Pep Total Protein Albumin Qmevl-0-Lhgjlfrdl Mpwyx-7-Jpblfhkqa Beta Globulins PEP Interpretation Cholesterol LDL Cholesterol Direct Vitamin B12 Urine WBC (Auto) Urine Creatinine Crossmatch 04/02/16 04/02/16 04/02/16 11:51 13:10 17:24 WBC RBC Hgb Hct MCV MCH MCHC RDW Plt Count Lymph % (Auto) [place] % (Auto) Lymph # [place] # Baso # Seg Neutrophils % Seg Neuts % (Manual) Lymphocytes % (Manual) Monocytes % (Manual) Seg Neutrophils # Seg Neutrophils # Man Lymphocytes # (Manual) Monocytes # (Manual) Basophils # (Manual) Percent Retic PT INR APTT Heparin Anti-Xa Level POC ABG pH 7.518 H POC ABG pCO2 POC ABG pO2 Sodium Potassium Chloride Carbon Dioxide BUN Creatinine Glucose POC Glucose 278 H 195 H Calcium Phosphorus Iron TIBC Lactate Dehydrogenase Total Creatine Kinase NT-Pro-B Natriuret Pep Total Protein Albumin Bphzx-4-Fznwzrnyk Xnhsn-8-Lcojnmuqo Beta Globulins PEP Interpretation Cholesterol LDL Cholesterol Direct Vitamin B12 Urine WBC (Auto) Urine Creatinine Crossmatch 04/03/16 04/03/16 04/03/16 00:18 04:10 04:10 WBC 14.3 H RBC Hgb Hct MCV 81 L MCH 26 L MCHC RDW Plt Count Lymph % (Auto) 9.0 L [place] % (Auto) 10.7 H Lymph # [place] # 1.5 H Baso # 0.2 H Seg Neutrophils % 78.5 H Seg Neuts % (Manual) Lymphocytes % (Manual) Monocytes % (Manual) Seg Neutrophils # 11.3 H Seg Neutrophils # Man Lymphocytes # (Manual) Monocytes # (Manual) Basophils # (Manual) Percent Retic PT INR APTT Heparin Anti-Xa Level POC ABG pH POC ABG pCO2 POC ABG pO2 Sodium 148 H Potassium Chloride 108.1 H Carbon Dioxide BUN 21 H Creatinine Glucose 227 H POC Glucose 144 H Calcium 8.2 L Phosphorus Iron TIBC Lactate Dehydrogenase Total Creatine Kinase NT-Pro-B Natriuret Pep Total Protein Albumin Ocxnr-2-Zqagsitmh Lpnqt-0-Ukzfhwued Beta Globulins PEP Interpretation Cholesterol LDL Cholesterol Direct Vitamin B12 Urine WBC (Auto) Urine Creatinine Crossmatch 04/03/16 04/03/16 04/04/16 11:14 17:10 04:00 WBC 14.5 H RBC Hgb Hct MCV 81 L MCH 26 L MCHC RDW Plt Count Lymph % (Auto) 7.2 L [place] % (Auto) 7.6 H Lymph # 1.0 L [place] # 1.1 H Baso # Seg Neutrophils % 84.5 H Seg Neuts % (Manual) Lymphocytes % (Manual) Monocytes % (Manual) Seg Neutrophils # 12.3 H Seg Neutrophils # Man Lymphocytes # (Manual) Monocytes # (Manual) Basophils # (Manual) Percent Retic PT INR APTT Heparin Anti-Xa Level POC ABG pH POC ABG pCO2 POC ABG pO2 Sodium Potassium Chloride Carbon Dioxide BUN Creatinine Glucose POC Glucose 267 H 212 H Calcium Phosphorus Iron TIBC Lactate Dehydrogenase Total Creatine Kinase NT-Pro-B Natriuret Pep Total Protein Albumin Pbltb-0-Mpijqnryx Ngrbd-8-Gyoptfhhh Beta Globulins PEP Interpretation Cholesterol LDL Cholesterol Direct Vitamin B12 Urine WBC (Auto) Urine Creatinine Crossmatch 04/04/16 04/04/16 04/04/16 05:00 09:55 09:55 WBC RBC Hgb 11.5 L Hct MCV MCH MCHC RDW Plt Count Lymph % (Auto) [place] % (Auto) Lymph # [place] # Baso # Seg Neutrophils % Seg Neuts % (Manual) Lymphocytes % (Manual) Monocytes % (Manual) Seg Neutrophils # Seg Neutrophils # Man Lymphocytes # (Manual) Monocytes # (Manual) Basophils # (Manual) Percent Retic PT INR APTT 42.1 H Heparin Anti-Xa Level POC ABG pH POC ABG pCO2 POC ABG pO2 Sodium 146 H Potassium Chloride Carbon Dioxide BUN 22 H Creatinine Glucose 128 H POC Glucose Calcium Phosphorus Iron TIBC Lactate Dehydrogenase Total Creatine Kinase NT-Pro-B Natriuret Pep Total Protein Albumin Phmjh-9-Ikrmhkpol Oeupr-7-Dlxprknti Beta Globulins PEP Interpretation Cholesterol LDL Cholesterol Direct Vitamin B12 Urine WBC (Auto) Urine Creatinine Crossmatch 04/04/16 04/04/16 04/04/16 11:45 17:49 17:55 WBC RBC Hgb Hct MCV MCH MCHC RDW Plt Count Lymph % (Auto) [place] % (Auto) Lymph # [place] # Baso # Seg Neutrophils % Seg Neuts % (Manual) Lymphocytes % (Manual) Monocytes % (Manual) Seg Neutrophils # Seg Neutrophils # Man Lymphocytes # (Manual) Monocytes # (Manual) Basophils # (Manual) Percent Retic PT INR APTT Heparin Anti-Xa Level 1.19 H POC ABG pH POC ABG pCO2 POC ABG pO2 Sodium Potassium Chloride Carbon Dioxide BUN Creatinine Glucose POC Glucose 231 H 186 H Calcium Phosphorus Iron TIBC Lactate Dehydrogenase Total Creatine Kinase NT-Pro-B Natriuret Pep Total Protein Albumin Ogjrx-9-Rupbpzych Xqoiq-1-Mffchcanz Beta Globulins PEP Interpretation Cholesterol LDL Cholesterol Direct Vitamin B12 Urine WBC (Auto) Urine Creatinine Crossmatch 04/05/16 04/05/16 04/05/16 00:35 05:32 05:42 WBC RBC Hgb Hct MCV MCH MCHC RDW Plt Count Lymph % (Auto) [place] % (Auto) Lymph # [place] # Baso # Seg Neutrophils % Seg Neuts % (Manual) Lymphocytes % (Manual) Monocytes % (Manual) Seg Neutrophils # Seg Neutrophils # Man Lymphocytes # (Manual) Monocytes # (Manual) Basophils # (Manual) Percent Retic PT INR APTT Heparin Anti-Xa Level POC ABG pH 7.491 H POC ABG pCO2 POC ABG pO2 Sodium Potassium Chloride Carbon Dioxide BUN Creatinine Glucose POC Glucose 192 H 242 H Calcium Phosphorus Iron TIBC Lactate Dehydrogenase Total Creatine Kinase NT-Pro-B Natriuret Pep Total Protein Albumin Rxctl-4-Rbcgxfmbf Zauey-3-Qpecnlryl Beta Globulins PEP Interpretation Cholesterol LDL Cholesterol Direct Vitamin B12 Urine WBC (Auto) Urine Creatinine Crossmatch 04/05/16 04/05/16 04/05/16 06:20 06:20 12:19 WBC 13.9 H RBC Hgb 11.6 L Hct MCV 81 L MCH 26 L MCHC RDW Plt Count Lymph % (Auto) 9.6 L [place] % (Auto) 8.7 H Lymph # [place] # 1.2 H Baso # Seg Neutrophils % 80.9 H Seg Neuts % (Manual) Lymphocytes % (Manual) Monocytes % (Manual) Seg Neutrophils # 11.3 H Seg Neutrophils # Man Lymphocytes # (Manual) Monocytes # (Manual) Basophils # (Manual) Percent Retic PT INR APTT Heparin Anti-Xa Level POC ABG pH POC ABG pCO2 POC ABG pO2 Sodium 148 H Potassium Chloride Carbon Dioxide BUN 23 H Creatinine Glucose 242 H POC Glucose 187 H Calcium Phosphorus Iron TIBC Lactate Dehydrogenase Total Creatine Kinase NT-Pro-B Natriuret Pep Total Protein Albumin Tignr-9-Nodzvlpnp Pyaga-6-Rjuxwlrcj Beta Globulins PEP Interpretation Cholesterol LDL Cholesterol Direct Vitamin B12 Urine WBC (Auto) Urine Creatinine Crossmatch 04/05/16 04/05/16 04/06/16 17:10 23:45 05:23 WBC 13.0 H RBC Hgb Hct MCV 82 L MCH 26 L MCHC 31 L RDW Plt Count Lymph % (Auto) 6.7 L [place] % (Auto) 8.3 H Lymph # 0.9 L [place] # 1.1 H Baso # Seg Neutrophils % 84.6 H Seg Neuts % (Manual) Lymphocytes % (Manual) Monocytes % (Manual) Seg Neutrophils # 11.0 H Seg Neutrophils # Man Lymphocytes # (Manual) Monocytes # (Manual) Basophils # (Manual) Percent Retic PT INR APTT Heparin Anti-Xa Level POC ABG pH POC ABG pCO2 POC ABG pO2 Sodium Potassium Chloride Carbon Dioxide BUN Creatinine Glucose POC Glucose 169 H 202 H Calcium Phosphorus Iron TIBC Lactate Dehydrogenase Total Creatine Kinase NT-Pro-B Natriuret Pep Total Protein Albumin Ahrch-1-Menfvpbbf Pasvl-5-Tkoxthlya Beta Globulins PEP Interpretation Cholesterol LDL Cholesterol Direct Vitamin B12 Urine WBC (Auto) Urine Creatinine Crossmatch 04/06/16 04/06/16 04/06/16 05:23 05:23 06:11 WBC RBC Hgb Hct MCV MCH MCHC RDW Plt Count Lymph % (Auto) [place] % (Auto) Lymph # [place] # Baso # Seg Neutrophils % Seg Neuts % (Manual) Lymphocytes % (Manual) Monocytes % (Manual) Seg Neutrophils # Seg Neutrophils # Man Lymphocytes # (Manual) Monocytes # (Manual) Basophils # (Manual) Percent Retic PT INR APTT Heparin Anti-Xa Level 0.21 L POC ABG pH POC ABG pCO2 POC ABG pO2 Sodium 153 H Potassium Chloride 111.3 H Carbon Dioxide BUN 22 H Creatinine Glucose 62 L POC Glucose 56 L Calcium Phosphorus Iron TIBC Lactate Dehydrogenase Total Creatine Kinase NT-Pro-B Natriuret Pep Total Protein Albumin Dabof-0-Grbrlkjuc Tcyoo-5-Tvacucufb Beta Globulins PEP Interpretation Cholesterol LDL Cholesterol Direct Vitamin B12 Urine WBC (Auto) Urine Creatinine Crossmatch 04/06/16 04/06/16 04/06/16 06:52 11:36 14:58 WBC RBC Hgb Hct MCV MCH MCHC RDW Plt Count Lymph % (Auto) [place] % (Auto) Lymph # [place] # Baso # Seg Neutrophils % Seg Neuts % (Manual) Lymphocytes % (Manual) Monocytes % (Manual) Seg Neutrophils # Seg Neutrophils # Man Lymphocytes # (Manual) Monocytes # (Manual) Basophils # (Manual) Percent Retic PT INR APTT Heparin Anti-Xa Level POC ABG pH POC ABG pCO2 POC ABG pO2 Sodium Potassium Chloride Carbon Dioxide BUN Creatinine Glucose POC Glucose 206 H 139 H 147 H Calcium Phosphorus Iron TIBC Lactate Dehydrogenase Total Creatine Kinase NT-Pro-B Natriuret Pep Total Protein Albumin Tkduz-9-Csagnlfhl Mvoal-1-Rcfopdnxb Beta Globulins PEP Interpretation Cholesterol LDL Cholesterol Direct Vitamin B12 Urine WBC (Auto) Urine Creatinine Crossmatch 04/06/16 04/06/16 04/06/16 16:03 21:18 23:53 WBC RBC Hgb Hct MCV MCH MCHC RDW Plt Count Lymph % (Auto) [place] % (Auto) Lymph # [place] # Baso # Seg Neutrophils % Seg Neuts % (Manual) Lymphocytes % (Manual) Monocytes % (Manual) Seg Neutrophils # Seg Neutrophils # Man Lymphocytes # (Manual) Monocytes # (Manual) Basophils # (Manual) Percent Retic PT INR APTT Heparin Anti-Xa Level POC ABG pH POC ABG pCO2 POC ABG pO2 Sodium Potassium Chloride Carbon Dioxide BUN Creatinine Glucose POC Glucose 154 H 293 H 301 H Calcium Phosphorus Iron TIBC Lactate Dehydrogenase Total Creatine Kinase NT-Pro-B Natriuret Pep Total Protein Albumin Bhfir-6-Nrtiblofx Fqsbr-9-Cadnlrkcl Beta Globulins PEP Interpretation Cholesterol LDL Cholesterol Direct Vitamin B12 Urine WBC (Auto) Urine Creatinine Crossmatch 04/07/16 04/07/16 04/07/16 02:30 05:11 05:11 WBC 12.5 H RBC Hgb 11.5 L Hct MCV 82 L MCH 26 L MCHC 31 L RDW Plt Count Lymph % (Auto) [place] % (Auto) Lymph # [place] # Baso # Seg Neutrophils % Seg Neuts % (Manual) Lymphocytes % (Manual) Monocytes % (Manual) Seg Neutrophils # Seg Neutrophils # Man Lymphocytes # (Manual) Monocytes # (Manual) Basophils # (Manual) Percent Retic PT INR APTT Heparin Anti-Xa Level 0.11 L POC ABG pH POC ABG pCO2 POC ABG pO2 Sodium 150 H Potassium Chloride 109.5 H Carbon Dioxide BUN 28 H Creatinine Glucose 264 H POC Glucose Calcium Phosphorus Iron TIBC Lactate Dehydrogenase Total Creatine Kinase NT-Pro-B Natriuret Pep Total Protein Albumin Wggyv-0-Xbtpxqbud Uqzqh-5-Kdzadeoha Beta Globulins PEP Interpretation Cholesterol LDL Cholesterol Direct Vitamin B12 Urine WBC (Auto) Urine Creatinine Crossmatch 04/07/16 04/07/16 04/07/16 06:46 10:18 11:50 WBC RBC Hgb Hct MCV MCH MCHC RDW Plt Count Lymph % (Auto) [place] % (Auto) Lymph # [place] # Baso # Seg Neutrophils % Seg Neuts % (Manual) Lymphocytes % (Manual) Monocytes % (Manual) Seg Neutrophils # Seg Neutrophils # Man Lymphocytes # (Manual) Monocytes # (Manual) Basophils # (Manual) Percent Retic PT 15.1 H INR 1.20 H APTT Heparin Anti-Xa Level POC ABG pH POC ABG pCO2 POC ABG pO2 Sodium Potassium Chloride Carbon Dioxide BUN Creatinine Glucose POC Glucose 259 H 288 H Calcium Phosphorus Iron TIBC Lactate Dehydrogenase Total Creatine Kinase NT-Pro-B Natriuret Pep Total Protein Albumin Qssuu-4-Okfchcbhj Bpyae-5-Xebovcisd Beta Globulins PEP Interpretation Cholesterol LDL Cholesterol Direct Vitamin B12 Urine WBC (Auto) Urine Creatinine Crossmatch 04/07/16 04/08/16 04/08/16 17:58 01:25 06:49 WBC RBC Hgb Hct MCV MCH MCHC RDW Plt Count Lymph % (Auto) [place] % (Auto) Lymph # [place] # Baso # Seg Neutrophils % Seg Neuts % (Manual) Lymphocytes % (Manual) Monocytes % (Manual) Seg Neutrophils # Seg Neutrophils # Man Lymphocytes # (Manual) Monocytes # (Manual) Basophils # (Manual) Percent Retic PT INR APTT Heparin Anti-Xa Level POC ABG pH POC ABG pCO2 POC ABG pO2 Sodium 156 H Potassium Chloride 114.7 H Carbon Dioxide BUN 33 H Creatinine Glucose 169 H POC Glucose 330 H 146 H Calcium Phosphorus Iron TIBC Lactate Dehydrogenase Total Creatine Kinase NT-Pro-B Natriuret Pep Total Protein Albumin Nxokc-2-Piwuwtjpt Ymgeu-4-Rqpakaksx Beta Globulins PEP Interpretation Cholesterol LDL Cholesterol Direct Vitamin B12 Urine WBC (Auto) Urine Creatinine Crossmatch 04/08/16 04/08/16 04/08/16 07:34 10:28 10:28 WBC RBC Hgb Hct MCV MCH MCHC RDW Plt Count Lymph % (Auto) [place] % (Auto) Lymph # [place] # Baso # Seg Neutrophils % Seg Neuts % (Manual) Lymphocytes % (Manual) Monocytes % (Manual) Seg Neutrophils # Seg Neutrophils # Man Lymphocytes # (Manual) Monocytes # (Manual) Basophils # (Manual) Percent Retic PT 15.5 H INR 1.24 H APTT Heparin Anti-Xa Level 0.24 L POC ABG pH POC ABG pCO2 POC ABG pO2 Sodium Potassium Chloride Carbon Dioxide BUN Creatinine Glucose POC Glucose 232 H Calcium Phosphorus Iron TIBC Lactate Dehydrogenase Total Creatine Kinase NT-Pro-B Natriuret Pep Total Protein Albumin Cehcd-5-Swoohjdta Vfnmv-7-Ovkdwjomg Beta Globulins PEP Interpretation Cholesterol LDL Cholesterol Direct Vitamin B12 Urine WBC (Auto) Urine Creatinine Crossmatch 04/08/16 04/08/16 04/09/16 11:36 15:38 00:01 WBC RBC Hgb Hct MCV MCH MCHC RDW Plt Count Lymph % (Auto) [place] % (Auto) Lymph # [place] # Baso # Seg Neutrophils % Seg Neuts % (Manual) Lymphocytes % (Manual) Monocytes % (Manual) Seg Neutrophils # Seg Neutrophils # Man Lymphocytes # (Manual) Monocytes # (Manual) Basophils # (Manual) Percent Retic PT INR APTT Heparin Anti-Xa Level POC ABG pH POC ABG pCO2 POC ABG pO2 Sodium Potassium Chloride Carbon Dioxide BUN Creatinine Glucose POC Glucose 193 H 163 H 180 H Calcium Phosphorus Iron TIBC Lactate Dehydrogenase Total Creatine Kinase NT-Pro-B Natriuret Pep Total Protein Albumin Kjwhe-2-Xuzdnzjqx Hpeyd-2-Wpifhhvjl Beta Globulins PEP Interpretation Cholesterol LDL Cholesterol Direct Vitamin B12 Urine WBC (Auto) Urine Creatinine Crossmatch 04/09/16 04/09/16 04/09/16 06:17 06:42 06:42 WBC RBC Hgb Hct MCV MCH MCHC RDW Plt Count Lymph % (Auto) [place] % (Auto) Lymph # [place] # Baso # Seg Neutrophils % Seg Neuts % (Manual) Lymphocytes % (Manual) Monocytes % (Manual) Seg Neutrophils # Seg Neutrophils # Man Lymphocytes # (Manual) Monocytes # (Manual) Basophils # (Manual) Percent Retic PT 17.4 H INR 1.43 H APTT Heparin Anti-Xa Level POC ABG pH POC ABG pCO2 POC ABG pO2 Sodium 153 H Potassium Chloride 113.2 H Carbon Dioxide BUN 29 H Creatinine Glucose 301 H POC Glucose 249 H Calcium 8.3 L Phosphorus Iron TIBC Lactate Dehydrogenase Total Creatine Kinase NT-Pro-B Natriuret Pep Total Protein Albumin Jdlqy-7-Llgzntgzi Gbwef-9-Cacvaoxfc Beta Globulins PEP Interpretation Cholesterol LDL Cholesterol Direct Vitamin B12 Urine WBC (Auto) Urine Creatinine Crossmatch 04/09/16 04/09/16 04/09/16 07:37 11:26 15:45 WBC RBC Hgb Hct MCV MCH MCHC RDW Plt Count Lymph % (Auto) [place] % (Auto) Lymph # [place] # Baso # Seg Neutrophils % Seg Neuts % (Manual) Lymphocytes % (Manual) Monocytes % (Manual) Seg Neutrophils # Seg Neutrophils # Man Lymphocytes # (Manual) Monocytes # (Manual) Basophils # (Manual) Percent Retic PT INR APTT Heparin Anti-Xa Level POC ABG pH POC ABG pCO2 POC ABG pO2 Sodium Potassium Chloride Carbon Dioxide BUN Creatinine Glucose POC Glucose 283 H 306 H 354 H Calcium Phosphorus Iron TIBC Lactate Dehydrogenase Total Creatine Kinase NT-Pro-B Natriuret Pep Total Protein Albumin Pldzu-7-Nmpvqbwxi Sfapt-7-Oqjvjhvhr Beta Globulins PEP Interpretation Cholesterol LDL Cholesterol Direct Vitamin B12 Urine WBC (Auto) Urine Creatinine Crossmatch 04/10/16 04/10/16 04/10/16 00:53 07:15 07:34 WBC RBC Hgb 11.3 L Hct MCV MCH MCHC RDW Plt Count Lymph % (Auto) [place] % (Auto) Lymph # [place] # Baso # Seg Neutrophils % Seg Neuts % (Manual) Lymphocytes % (Manual) Monocytes % (Manual) Seg Neutrophils # Seg Neutrophils # Man Lymphocytes # (Manual) Monocytes # (Manual) Basophils # (Manual) Percent Retic PT INR APTT Heparin Anti-Xa Level POC ABG pH POC ABG pCO2 POC ABG pO2 Sodium Potassium Chloride Carbon Dioxide BUN Creatinine Glucose POC Glucose 323 H 311 H Calcium Phosphorus Iron TIBC Lactate Dehydrogenase Total Creatine Kinase NT-Pro-B Natriuret Pep Total Protein Albumin Evsne-9-Fcseszxsx Jybmj-9-Minzetbbe Beta Globulins PEP Interpretation Cholesterol LDL Cholesterol Direct Vitamin B12 Urine WBC (Auto) Urine Creatinine Crossmatch 04/10/16 04/10/16 04/10/16 07:34 07:34 11:25 WBC RBC Hgb Hct MCV MCH MCHC RDW Plt Count Lymph % (Auto) [place] % (Auto) Lymph # [place] # Baso # Seg Neutrophils % Seg Neuts % (Manual) Lymphocytes % (Manual) Monocytes % (Manual) Seg Neutrophils # Seg Neutrophils # Man Lymphocytes # (Manual) Monocytes # (Manual) Basophils # (Manual) Percent Retic PT 17.3 H INR 1.42 H APTT Heparin Anti-Xa Level POC ABG pH POC ABG pCO2 POC ABG pO2 Sodium 158 H Potassium Chloride 118.6 H Carbon Dioxide BUN 30 H Creatinine Glucose 330 H POC Glucose 335 H Calcium 8.3 L Phosphorus Iron TIBC Lactate Dehydrogenase Total Creatine Kinase NT-Pro-B Natriuret Pep Total Protein Albumin Xhbki-1-Hzmbkxgin Xzhdd-5-Uyfjpytoh Beta Globulins PEP Interpretation Cholesterol LDL Cholesterol Direct Vitamin B12 Urine WBC (Auto) Urine Creatinine Crossmatch 04/10/16 04/11/16 04/11/16 16:21 00:29 07:47 WBC RBC Hgb Hct MCV MCH MCHC RDW Plt Count Lymph % (Auto) [place] % (Auto) Lymph # [place] # Baso # Seg Neutrophils % Seg Neuts % (Manual) Lymphocytes % (Manual) Monocytes % (Manual) Seg Neutrophils # Seg Neutrophils # Man Lymphocytes # (Manual) Monocytes # (Manual) Basophils # (Manual) Percent Retic PT 18.4 H INR 1.53 H APTT Heparin Anti-Xa Level POC ABG pH POC ABG pCO2 POC ABG pO2 Sodium Potassium Chloride Carbon Dioxide BUN Creatinine Glucose POC Glucose 230 H 162 H Calcium Phosphorus Iron TIBC Lactate Dehydrogenase Total Creatine Kinase NT-Pro-B Natriuret Pep Total Protein Albumin Oiqcw-6-Povsrfvvo Tsvau-6-Qweflakpq Beta Globulins PEP Interpretation Cholesterol LDL Cholesterol Direct Vitamin B12 Urine WBC (Auto) Urine Creatinine Crossmatch 04/11/16 04/11/16 04/12/16 07:47 11:22 04:54 WBC RBC Hgb 11.0 L Hct 35.0 L MCV MCH MCHC RDW Plt Count Lymph % (Auto) [place] % (Auto) Lymph # [place] # Baso # Seg Neutrophils % Seg Neuts % (Manual) Lymphocytes % (Manual) Monocytes % (Manual) Seg Neutrophils # Seg Neutrophils # Man Lymphocytes # (Manual) Monocytes # (Manual) Basophils # (Manual) Percent Retic PT INR APTT Heparin Anti-Xa Level POC ABG pH POC ABG pCO2 POC ABG pO2 Sodium 155 H Potassium Chloride 114.5 H Carbon Dioxide BUN 23 H Creatinine Glucose 157 H POC Glucose 229 H Calcium Phosphorus Iron TIBC Lactate Dehydrogenase Total Creatine Kinase NT-Pro-B Natriuret Pep Total Protein Albumin Ajamf-3-Aepyddxlb Wwpgg-8-Mtbwbqyez Beta Globulins PEP Interpretation Cholesterol LDL Cholesterol Direct Vitamin B12 Urine WBC (Auto) Urine Creatinine Crossmatch 04/12/16 04/12/16 04/12/16 04:54 04:54 05:57 WBC RBC Hgb Hct MCV MCH MCHC RDW Plt Count Lymph % (Auto) [place] % (Auto) Lymph # [place] # Baso # Seg Neutrophils % Seg Neuts % (Manual) Lymphocytes % (Manual) Monocytes % (Manual) Seg Neutrophils # Seg Neutrophils # Man Lymphocytes # (Manual) Monocytes # (Manual) Basophils # (Manual) Percent Retic PT 22.5 H INR 1.98 H APTT Heparin Anti-Xa Level 0.19 L POC ABG pH POC ABG pCO2 POC ABG pO2 Sodium 156 H Potassium Chloride 115.4 H Carbon Dioxide BUN 23 H Creatinine Glucose 143 H POC Glucose 194 H Calcium Phosphorus Iron TIBC Lactate Dehydrogenase Total Creatine Kinase NT-Pro-B Natriuret Pep Total Protein Albumin Waeoj-4-Kfgtrasgv Goooy-1-Kleaqkjdh Beta Globulins PEP Interpretation Cholesterol LDL Cholesterol Direct Vitamin B12 Urine WBC (Auto) Urine Creatinine Crossmatch 04/12/16 04/12/16 04/12/16 12:34 19:01 23:30 WBC RBC Hgb Hct MCV MCH MCHC RDW Plt Count Lymph % (Auto) [place] % (Auto) Lymph # [place] # Baso # Seg Neutrophils % Seg Neuts % (Manual) Lymphocytes % (Manual) Monocytes % (Manual) Seg Neutrophils # Seg Neutrophils # Man Lymphocytes # (Manual) Monocytes # (Manual) Basophils # (Manual) Percent Retic PT INR APTT Heparin Anti-Xa Level POC ABG pH POC ABG pCO2 POC ABG pO2 Sodium Potassium Chloride Carbon Dioxide BUN Creatinine Glucose POC Glucose 291 H 235 H 154 H Calcium Phosphorus Iron TIBC Lactate Dehydrogenase Total Creatine Kinase NT-Pro-B Natriuret Pep Total Protein Albumin Guafz-3-Qtalemmdu Vdelh-1-Wyzyybiof Beta Globulins PEP Interpretation Cholesterol LDL Cholesterol Direct Vitamin B12 Urine WBC (Auto) Urine Creatinine Crossmatch 04/13/16 04/13/16 04/13/16 05:16 05:16 05:28 WBC RBC Hgb Hct MCV MCH MCHC RDW Plt Count Lymph % (Auto) [place] % (Auto) Lymph # [place] # Baso # Seg Neutrophils % Seg Neuts % (Manual) Lymphocytes % (Manual) Monocytes % (Manual) Seg Neutrophils # Seg Neutrophils # Man Lymphocytes # (Manual) Monocytes # (Manual) Basophils # (Manual) Percent Retic PT 27.0 H INR 2.49 H APTT Heparin Anti-Xa Level 0.20 L POC ABG pH POC ABG pCO2 POC ABG pO2 Sodium 150 H Potassium Chloride 110.5 H Carbon Dioxide BUN 21 H Creatinine Glucose 159 H POC Glucose 177 H Calcium Phosphorus Iron TIBC Lactate Dehydrogenase Total Creatine Kinase NT-Pro-B Natriuret Pep Total Protein Albumin Pvezl-7-Kxkomxcqf Pmfzu-3-Fpqwvahty Beta Globulins PEP Interpretation Cholesterol LDL Cholesterol Direct Vitamin B12 Urine WBC (Auto) Urine Creatinine Crossmatch 04/13/16 04/13/16 04/14/16 11:30 17:54 00:44 WBC RBC Hgb Hct MCV MCH MCHC RDW Plt Count Lymph % (Auto) [place] % (Auto) Lymph # [place] # Baso # Seg Neutrophils % Seg Neuts % (Manual) Lymphocytes % (Manual) Monocytes % (Manual) Seg Neutrophils # Seg Neutrophils # Man Lymphocytes # (Manual) Monocytes # (Manual) Basophils # (Manual) Percent Retic PT INR APTT Heparin Anti-Xa Level POC ABG pH POC ABG pCO2 POC ABG pO2 Sodium Potassium Chloride Carbon Dioxide BUN Creatinine Glucose POC Glucose 181 H 251 H 237 H Calcium Phosphorus Iron TIBC Lactate Dehydrogenase Total Creatine Kinase NT-Pro-B Natriuret Pep Total Protein Albumin Ibzxy-0-Hvgnsijsu Xmsjk-7-Rlrngqeci Beta Globulins PEP Interpretation Cholesterol LDL Cholesterol Direct Vitamin B12 Urine WBC (Auto) Urine Creatinine Crossmatch 04/14/16 04/14/16 04/14/16 05:00 05:42 05:42 WBC RBC Hgb Hct MCV MCH MCHC RDW Plt Count Lymph % (Auto) [place] % (Auto) Lymph # [place] # Baso # Seg Neutrophils % Seg Neuts % (Manual) Lymphocytes % (Manual) Monocytes % (Manual) Seg Neutrophils # Seg Neutrophils # Man Lymphocytes # (Manual) Monocytes # (Manual) Basophils # (Manual) Percent Retic PT 30.3 H INR 2.88 H APTT Heparin Anti-Xa Level 0.27 L POC ABG pH POC ABG pCO2 POC ABG pO2 Sodium Potassium 3.5 L Chloride Carbon Dioxide BUN Creatinine Glucose 160 H POC Glucose Calcium 8.2 L Phosphorus Iron TIBC Lactate Dehydrogenase Total Creatine Kinase NT-Pro-B Natriuret Pep Total Protein Albumin Oyvzd-5-Ukodgbjdt Fkyok-8-Lttiosgld Beta Globulins PEP Interpretation Cholesterol LDL Cholesterol Direct Vitamin B12 Urine WBC (Auto) Urine Creatinine Crossmatch 04/14/16 04/14/16 04/14/16 06:02 06:16 09:18 WBC 12.3 H RBC Hgb 11.4 L Hct MCV 82 L MCH 26 L MCHC RDW Plt Count Lymph % (Auto) [place] % (Auto) Lymph # [place] # Baso # Seg Neutrophils % Seg Neuts % (Manual) Lymphocytes % (Manual) Monocytes % (Manual) Seg Neutrophils # Seg Neutrophils # Man Lymphocytes # (Manual) Monocytes # (Manual) Basophils # (Manual) Percent Retic PT INR APTT Heparin Anti-Xa Level POC ABG pH POC ABG pCO2 POC ABG pO2 Sodium Potassium Chloride Carbon Dioxide BUN Creatinine Glucose POC Glucose 156 H 164 H Calcium Phosphorus Iron TIBC Lactate Dehydrogenase Total Creatine Kinase NT-Pro-B Natriuret Pep Total Protein Albumin Dvryo-2-Bmijtpxfg Rlvzp-1-Fdonhmnwi Beta Globulins PEP Interpretation Cholesterol LDL Cholesterol Direct Vitamin B12 Urine WBC (Auto) Urine Creatinine Crossmatch 04/14/16 04/15/16 04/15/16 13:58 01:07 06:04 WBC RBC Hgb Hct MCV MCH MCHC RDW Plt Count Lymph % (Auto) [place] % (Auto) Lymph # [place] # Baso # Seg Neutrophils % Seg Neuts % (Manual) Lymphocytes % (Manual) Monocytes % (Manual) Seg Neutrophils # Seg Neutrophils # Man Lymphocytes # (Manual) Monocytes # (Manual) Basophils # (Manual) Percent Retic PT 24.9 H INR 2.25 H APTT Heparin Anti-Xa Level POC ABG pH POC ABG pCO2 POC ABG pO2 Sodium Potassium Chloride Carbon Dioxide BUN Creatinine Glucose POC Glucose 109 H 154 H Calcium Phosphorus Iron TIBC Lactate Dehydrogenase Total Creatine Kinase NT-Pro-B Natriuret Pep Total Protein Albumin [id number] Ipcfw-[id number] Beta Globulins PEP Interpretation Cholesterol LDL Cholesterol Direct Vitamin B12 Urine WBC (Auto) Urine Creatinine Crossmatch 04/15/16 04/15/16 04/16/16 06:08 12:41 00:38 WBC RBC Hgb Hct MCV MCH MCHC RDW Plt Count Lymph % (Auto) [place] % (Auto) Lymph # [place] # Baso # Seg Neutrophils % Seg Neuts % (Manual) Lymphocytes % (Manual) Monocytes % (Manual) Seg Neutrophils # Seg Neutrophils # Man Lymphocytes # (Manual) Monocytes # (Manual) Basophils # (Manual) Percent Retic PT INR APTT Heparin Anti-Xa Level POC ABG pH POC ABG pCO2 POC ABG pO2 Sodium Potassium Chloride Carbon Dioxide BUN Creatinine Glucose POC Glucose 165 H 223 H 216 H Calcium Phosphorus Iron TIBC Lactate Dehydrogenase Total Creatine Kinase NT-Pro-B Natriuret Pep Total Protein Albumin Qkoxv-2-Wepwlckev Xuqwo-5-Rvtgncjto Beta Globulins PEP Interpretation Cholesterol LDL Cholesterol Direct Vitamin B12 Urine WBC (Auto) Urine Creatinine Crossmatch 04/16/16 04/16/16 04/16/16 05:45 07:09 14:00 WBC RBC Hgb Hct MCV MCH MCHC RDW Plt Count Lymph % (Auto) [place] % (Auto) Lymph # [place] # Baso # Seg Neutrophils % Seg Neuts % (Manual) Lymphocytes % (Manual) Monocytes % (Manual) Seg Neutrophils # Seg Neutrophils # Man Lymphocytes # (Manual) Monocytes # (Manual) Basophils # (Manual) Percent Retic PT 19.4 H INR 1.64 H APTT Heparin Anti-Xa Level 0.10 L POC ABG pH POC ABG pCO2 POC ABG pO2 Sodium Potassium Chloride Carbon Dioxide BUN Creatinine Glucose POC Glucose 207 H 69 L Calcium Phosphorus Iron TIBC Lactate Dehydrogenase Total Creatine Kinase NT-Pro-B Natriuret Pep Total Protein Albumin Wrwnh-3-Hqouwdqzz Zmxnc-5-Xfrvqkdor Beta Globulins PEP Interpretation Cholesterol LDL Cholesterol Direct Vitamin B12 Urine WBC (Auto) Urine Creatinine Crossmatch 04/16/16 04/16/16 04/16/16 17:40 17:52 19:38 WBC RBC Hgb Hct MCV MCH MCHC RDW Plt Count Lymph % (Auto) [place] % (Auto) Lymph # [place] # Baso # Seg Neutrophils % Seg Neuts % (Manual) Lymphocytes % (Manual) Monocytes % (Manual) Seg Neutrophils # Seg Neutrophils # Man Lymphocytes # (Manual) Monocytes # (Manual) Basophils # (Manual) Percent Retic PT INR APTT Heparin Anti-Xa Level 0.26 L POC ABG pH 7.543 H 7.488 H POC ABG pCO2 26.3 L 30.3 L POC ABG pO2 55 L 203 H Sodium Potassium Chloride Carbon Dioxide BUN Creatinine Glucose POC Glucose Calcium Phosphorus Iron TIBC Lactate Dehydrogenase Total Creatine Kinase NT-Pro-B Natriuret Pep Total Protein Albumin Eqssm-3-Msmzzscfs Oqzcv-7-Nujuhpqpn Beta Globulins PEP Interpretation Cholesterol LDL Cholesterol Direct Vitamin B12 Urine WBC (Auto) Urine Creatinine Crossmatch 04/17/16 04/17/16 04/17/16 00:04 05:10 05:36 WBC RBC Hgb Hct MCV MCH MCHC RDW Plt Count Lymph % (Auto) [place] % (Auto) Lymph # [place] # Baso # Seg Neutrophils % Seg Neuts % (Manual) Lymphocytes % (Manual) Monocytes % (Manual) Seg Neutrophils # Seg Neutrophils # Man Lymphocytes # (Manual) Monocytes # (Manual) Basophils # (Manual) Percent Retic PT INR APTT Heparin Anti-Xa Level POC ABG pH POC ABG pCO2 32.7 L POC ABG pO2 68 L Sodium Potassium Chloride Carbon Dioxide BUN Creatinine Glucose POC Glucose 113 H 161 H Calcium Phosphorus Iron TIBC Lactate Dehydrogenase Total Creatine Kinase NT-Pro-B Natriuret Pep Total Protein Albumin Reuar-3-Bmlzaiqml Skslc-0-Hihgltsyr Beta Globulins PEP Interpretation Cholesterol LDL Cholesterol Direct Vitamin B12 Urine WBC (Auto) Urine Creatinine Crossmatch 04/17/16 04/17/16 04/17/16 05:41 08:37 11:46 WBC RBC Hgb Hct MCV MCH MCHC RDW Plt Count Lymph % (Auto) [place] % (Auto) Lymph # [place] # Baso # Seg Neutrophils % Seg Neuts % (Manual) Lymphocytes % (Manual) Monocytes % (Manual) Seg Neutrophils # Seg Neutrophils # Man Lymphocytes # (Manual) Monocytes # (Manual) Basophils # (Manual) Percent Retic PT 17.4 H INR 1.43 H APTT Heparin Anti-Xa Level POC ABG pH POC ABG pCO2 POC ABG pO2 Sodium Potassium Chloride Carbon Dioxide BUN Creatinine Glucose POC Glucose 154 H 138 H Calcium Phosphorus Iron TIBC Lactate Dehydrogenase Total Creatine Kinase NT-Pro-B Natriuret Pep Total Protein Albumin Fgpih-4-Vjqdzyevp Hwzrq-6-Ttdevasrp Beta Globulins PEP Interpretation Cholesterol LDL Cholesterol Direct Vitamin B12 Urine WBC (Auto) Urine Creatinine Crossmatch 04/17/16 04/17/1616 12:17 12:17 21:20 WBC 16.5 H RBC 3.31 L Hgb 8.8 L Hct 26.9 L MCV 81 L MCH 27 L MCHC RDW 15.5 H Plt Count Lymph % (Auto) [place] % (Auto) Lymph # [place] # Baso # Seg Neutrophils % Seg Neuts % (Manual) Lymphocytes % (Manual) 3.0 L Monocytes % (Manual) Seg Neutrophils # Seg Neutrophils # Man 10.1 H Lymphocytes # (Manual) 0.5 L Monocytes # (Manual) Basophils # (Manual) Percent Retic PT INR APTT Heparin Anti-Xa Level 0.14 L POC ABG pH POC ABG pCO2 POC ABG pO2 Sodium Potassium Chloride Carbon Dioxide 21 L BUN 38 H Creatinine 1.8 H D Glucose 131 H POC Glucose Calcium 7.6 L Phosphorus Iron TIBC Lactate Dehydrogenase Total Creatine Kinase NT-Pro-B Natriuret Pep Total Protein Albumin Nbien-0-Sedafyglv Kkwff-8-Hdkzitjgo Beta Globulins PEP Interpretation Cholesterol LDL Cholesterol Direct Vitamin B12 Urine WBC (Auto) Urine Creatinine Crossmatch 04/17/16 04/17/16 04/18/16 23:38 23:41 00:21 WBC RBC Hgb Hct MCV MCH MCHC RDW Plt Count Lymph % (Auto) [place] % (Auto) Lymph # [place] # Baso # Seg Neutrophils % Seg Neuts % (Manual) Lymphocytes % (Manual) Monocytes % (Manual) Seg Neutrophils # Seg Neutrophils # Man Lymphocytes # (Manual) Monocytes # (Manual) Basophils # (Manual) Percent Retic PT INR APTT Heparin Anti-Xa Level POC ABG pH POC ABG pCO2 POC ABG pO2 Sodium Potassium Chloride Carbon Dioxide BUN Creatinine Glucose POC Glucose < 40 L < 40 L 223 H Calcium Phosphorus Iron TIBC Lactate Dehydrogenase Total Creatine Kinase NT-Pro-B Natriuret Pep Total Protein Albumin Dljvx-2-Cqxgqpqoj Ztbxz-2-Rthexkfcg Beta Globulins PEP Interpretation Cholesterol LDL Cholesterol Direct Vitamin B12 Urine WBC (Auto) Urine Creatinine Crossmatch 04/18/16 04/18/16 04/18/16 05:01 05:20 05:20 WBC 17.6 H RBC 3.44 L Hgb 9.1 L Hct 27.8 L MCV 81 L MCH 26 L MCHC RDW 15.5 H Plt Count Lymph % (Auto) 2.7 L [place] % (Auto) 8.3 H Lymph # 0.5 L [place] # 1.5 H Baso # Seg Neutrophils % 88.4 H Seg Neuts % (Manual) Lymphocytes % (Manual) Monocytes % (Manual) Seg Neutrophils # 15.6 H Seg Neutrophils # Man Lymphocytes # (Manual) Monocytes # (Manual) Basophils # (Manual) Percent Retic PT 17.4 H INR 1.43 H APTT Heparin Anti-Xa Level POC ABG pH 7.528 H POC ABG pCO2 27.9 L POC ABG pO2 Sodium Potassium Chloride Carbon Dioxide BUN Creatinine Glucose POC Glucose Calcium Phosphorus Iron TIBC Lactate Dehydrogenase Total Creatine Kinase NT-Pro-B Natriuret Pep Total Protein Albumin Olgfi-7-Ndnknayrm Wdiep-1-Lfurwcmqu Beta Globulins PEP Interpretation Cholesterol LDL Cholesterol Direct Vitamin B12 Urine WBC (Auto) Urine Creatinine Crossmatch 04/18/16 04/18/16 04/18/16 05:20 05:31 06:50 WBC RBC Hgb Hct MCV MCH MCHC RDW Plt Count Lymph % (Auto) [place] % (Auto) Lymph # [place] # Baso # Seg Neutrophils % Seg Neuts % (Manual) Lymphocytes % (Manual) Monocytes % (Manual) Seg Neutrophils # Seg Neutrophils # Man Lymphocytes # (Manual) Monocytes # (Manual) Basophils # (Manual) Percent Retic PT INR APTT Heparin Anti-Xa Level POC ABG pH POC ABG pCO2 POC ABG pO2 Sodium Potassium 3.4 L Chloride Carbon Dioxide 21 L BUN 22 H Creatinine Glucose POC Glucose 61 L 124 H Calcium 8.0 L Phosphorus Iron TIBC Lactate Dehydrogenase Total Creatine Kinase NT-Pro-B Natriuret Pep Total Protein Albumin Wwxkr-6-Rbkbfkcsy Ovvmm-3-Wpiebyeqv Beta Globulins PEP Interpretation Cholesterol LDL Cholesterol Direct Vitamin B12 Urine WBC (Auto) Urine Creatinine Crossmatch 04/18/16 04/18/16 04/19/16 17:42 22:40 00:31 WBC RBC Hgb Hct MCV MCH MCHC RDW Plt Count Lymph % (Auto) [place] % (Auto) Lymph # [place] # Baso # Seg Neutrophils % Seg Neuts % (Manual) Lymphocytes % (Manual) Monocytes % (Manual) Seg Neutrophils # Seg Neutrophils # Man Lymphocytes # (Manual) Monocytes # (Manual) Basophils # (Manual) Percent Retic PT INR APTT Heparin Anti-Xa Level < 0.10 L POC ABG pH POC ABG pCO2 POC ABG pO2 Sodium Potassium Chloride Carbon Dioxide BUN Creatinine Glucose POC Glucose 159 H 134 H Calcium Phosphorus Iron TIBC Lactate Dehydrogenase Total Creatine Kinase NT-Pro-B Natriuret Pep Total Protein Albumin Ixwma-8-Aduqnuywc Iedob-0-Ewdwtjcho Beta Globulins PEP Interpretation Cholesterol LDL Cholesterol Direct Vitamin B12 Urine WBC (Auto) Urine Creatinine Crossmatch 04/19/16 04/19/16 04/19/16 04:18 04:18 04:25 WBC 19.0 H RBC 3.58 L Hgb 9.3 L Hct 28.8 L MCV 80 L MCH 26 L MCHC RDW 15.5 H Plt Count Lymph % (Auto) 2.8 L [place] % (Auto) 7.4 H Lymph # 0.5 L [place] # 1.4 H Baso # Seg Neutrophils % 89.4 H Seg Neuts % (Manual) Lymphocytes % (Manual) Monocytes % (Manual) Seg Neutrophils # 17.0 H Seg Neutrophils # Man Lymphocytes # (Manual) Monocytes # (Manual) Basophils # (Manual) Percent Retic PT INR APTT Heparin Anti-Xa Level POC ABG pH 7.527 H POC ABG pCO2 27.1 L POC ABG pO2 Sodium Potassium Chloride Carbon Dioxide BUN 22 H Creatinine Glucose 215 H POC Glucose Calcium 8.0 L Phosphorus Iron TIBC Lactate Dehydrogenase Total Creatine Kinase NT-Pro-B Natriuret Pep Total Protein Albumin Chkkk-5-Nbouototu Ftjvl-7-Nrjduoyix Beta Globulins PEP Interpretation Cholesterol LDL Cholesterol Direct Vitamin B12 Urine WBC (Auto) Urine Creatinine Crossmatch 04/19/16 04/19/16 04/19/16 05:45 08:10 14:08 WBC RBC Hgb Hct MCV MCH MCHC RDW Plt Count Lymph % (Auto) [place] % (Auto) Lymph # [place] # Baso # Seg Neutrophils % Seg Neuts % (Manual) Lymphocytes % (Manual) Monocytes % (Manual) Seg Neutrophils # Seg Neutrophils # Man Lymphocytes # (Manual) Monocytes # (Manual) Basophils # (Manual) Percent Retic PT 22.1 H INR 1.93 H APTT Heparin Anti-Xa Level 0.17 L POC ABG pH POC ABG pCO2 POC ABG pO2 Sodium Potassium Chloride Carbon Dioxide BUN Creatinine Glucose POC Glucose 196 H 318 H Calcium Phosphorus Iron TIBC Lactate Dehydrogenase Total Creatine Kinase NT-Pro-B Natriuret Pep Total Protein Albumin Rjkqq-4-Szatqvqlo Qffuk-9-Btelamnya Beta Globulins PEP Interpretation Cholesterol LDL Cholesterol Direct Vitamin B12 Urine WBC (Auto) Urine Creatinine Crossmatch 04/19/16 04/20/16 04/20/16 17:27 03:55 03:55 WBC 18.5 H RBC 3.19 L Hgb 8.4 L Hct 25.7 L MCV 80 L MCH 26 L MCHC RDW 15.9 H Plt Count Lymph % (Auto) 4.3 L [place] % (Auto) 10.1 H Lymph # 0.8 L [place] # 1.9 H Baso # Seg Neutrophils % 85.2 H Seg Neuts % (Manual) Lymphocytes % (Manual) Monocytes % (Manual) Seg Neutrophils # 15.8 H Seg Neutrophils # Man Lymphocytes # (Manual) Monocytes # (Manual) Basophils # (Manual) Percent Retic PT 22.0 H INR 1.92 H APTT Heparin Anti-Xa Level 0.14 L POC ABG pH POC ABG pCO2 POC ABG pO2 Sodium Potassium Chloride Carbon Dioxide BUN Creatinine Glucose POC Glucose 230 H Calcium Phosphorus Iron TIBC Lactate Dehydrogenase Total Creatine Kinase NT-Pro-B Natriuret Pep Total Protein Albumin Wbbqo-0-Mmnpvlrlp Qqiyd-7-Hbikubhxq Beta Globulins PEP Interpretation Cholesterol LDL Cholesterol Direct Vitamin B12 Urine WBC (Auto) Urine Creatinine Crossmatch 04/20/16 04/20/16 04/20/16 03:55 04:16 05:52 WBC RBC Hgb Hct MCV MCH MCHC RDW Plt Count Lymph % (Auto) [place] % (Auto) Lymph # [place] # Baso # Seg Neutrophils % Seg Neuts % (Manual) Lymphocytes % (Manual) Monocytes % (Manual) Seg Neutrophils # Seg Neutrophils # Man Lymphocytes # (Manual) Monocytes # (Manual) Basophils # (Manual) Percent Retic PT INR APTT Heparin Anti-Xa Level POC ABG pH 7.474 H POC ABG pCO2 26.5 L POC ABG pO2 Sodium Potassium Chloride Carbon Dioxide 18 L BUN 38 H Creatinine 2.7 H D Glucose 159 H POC Glucose 214 H Calcium 8.0 L Phosphorus Iron TIBC Lactate Dehydrogenase Total Creatine Kinase NT-Pro-B Natriuret Pep Total Protein Albumin Utvco-3-Pvnbpwjnr Papse-7-Blpgyiqsu Beta Globulins PEP Interpretation Cholesterol LDL Cholesterol Direct Vitamin B12 Urine WBC (Auto) Urine Creatinine Crossmatch 04/20/16 04/20/16 04/20/16 10:32 11:27 11:50 WBC RBC Hgb Hct MCV MCH MCHC RDW Plt Count Lymph % (Auto) [place] % (Auto) Lymph # [place] # Baso # Seg Neutrophils % Seg Neuts % (Manual) Lymphocytes % (Manual) Monocytes % (Manual) Seg Neutrophils # Seg Neutrophils # Man Lymphocytes # (Manual) Monocytes # (Manual) Basophils # (Manual) Percent Retic PT INR APTT Heparin Anti-Xa Level POC ABG pH POC ABG pCO2 POC ABG pO2 Sodium Potassium Chloride Carbon Dioxide 20 L BUN 45 H Creatinine 3.0 H Glucose 215 H POC Glucose 248 H Calcium 8.0 L Phosphorus Iron TIBC Lactate Dehydrogenase Total Creatine Kinase NT-Pro-B Natriuret Pep Total Protein Albumin Daecd-5-Hpulrsaud Mcesz-7-Z[place] Beta Globulins PEP Interpretation Cholesterol LDL Cholesterol Direct Vitamin B12 Urine WBC (Auto) Urine Creatinine 85.5 H Crossmatch 04/20/16 04/21/16 04/21/16 16:59 00:13 04:29 WBC RBC Hgb Hct MCV MCH MCHC RDW Plt Count Lymph % (Auto) [place] % (Auto) Lymph # [place] # Baso # Seg Neutrophils % Seg Neuts % (Manual) Lymphocytes % (Manual) Monocytes % (Manual) Seg Neutrophils # Seg Neutrophils # Man Lymphocytes # (Manual) Monocytes # (Manual) Basophils # (Manual) Percent Retic PT 18.1 H INR 1.50 H APTT Heparin Anti-Xa Level 0.10 L POC ABG pH POC ABG pCO2 POC ABG pO2 Sodium Potassium Chloride Carbon Dioxide BUN Creatinine Glucose POC Glucose 312 H 287 H Calcium Phosphorus Iron TIBC Lactate Dehydrogenase Total Creatine Kinase NT-Pro-B Natriuret Pep Total Protein Albumin Qwxtw-3-Vdqpzkebf Relpc-5-Dclhkgpup Beta Globulins PEP Interpretation Cholesterol LDL Cholesterol Direct Vitamin B12 Urine WBC (Auto) Urine Creatinine Crossmatch 04/21/16 04/21/16 04/21/16 04:29 04:29 04:55 WBC 15.4 H RBC 3.24 L Hgb 8.4 L Hct 25.6 L MCV 79 L MCH 26 L MCHC RDW 16.1 H Plt Count Lymph % (Auto) 6.8 L [place] % (Auto) 12.9 H Lymph # 1.0 L [place] # 2.0 H Baso # Seg Neutrophils % 79.8 H Seg Neuts % (Manual) Lymphocytes % (Manual) Monocytes % (Manual) Seg Neutrophils # 12.3 H Seg Neutrophils # Man Lymphocytes # (Manual) Monocytes # (Manual) Basophils # (Manual) Percent Retic PT INR APTT Heparin Anti-Xa Level POC ABG pH 7.512 H POC ABG pCO2 25.4 L POC ABG pO2 Sodium 135 L Potassium Chloride Carbon Dioxide 18 L BUN 57 H Creatinine 3.9 H Glucose 202 H POC Glucose Calcium 8.0 L Phosphorus Iron TIBC Lactate Dehydrogenase Total Creatine Kinase NT-Pro-B Natriuret Pep Total Protein Albumin Rpnxm-3-Vvehdaljo Wixym-5-Bzqzvftmi Beta Globulins PEP Interpretation Cholesterol LDL Cholesterol Direct Vitamin B12 Urine WBC (Auto) Urine Creatinine Crossmatch 04/21/16 04/21/16 04/21/16 05:20 12:08 12:16 WBC RBC Hgb Hct MCV MCH MCHC RDW Plt Count Lymph % (Auto) [place] % (Auto) Lymph # [place] # Baso # Seg Neutrophils % Seg Neuts % (Manual) Lymphocytes % (Manual) Monocytes % (Manual) Seg Neutrophils # Seg Neutrophils # Man Lymphocytes # (Manual) Monocytes # (Manual) Basophils # (Manual) Percent Retic PT INR APTT Heparin Anti-Xa Level 0.16 L POC ABG pH POC ABG pCO2 POC ABG pO2 Sodium Potassium Chloride Carbon Dioxide BUN Creatinine Glucose POC Glucose 203 H 221 H Calcium Phosphorus Iron TIBC Lactate Dehydrogenase Total Creatine Kinase NT-Pro-B Natriuret Pep Total Protein Albumin Xnybk-8-Djjwmupsu Bikuf-1-Vfzbbmilz Beta Globulins PEP Interpretation Cholesterol LDL Cholesterol Direct Vitamin B12 Urine WBC (Auto) Urine Creatinine Crossmatch 04/21/16 04/22/16 04/22/16 17:22 05:01 05:20 WBC RBC Hgb Hct MCV MCH MCHC RDW Plt Count Lymph % (Auto) [place] % (Auto) Lymph # [place] # Baso # Seg Neutrophils % Seg Neuts % (Manual) Lymphocytes % (Manual) Monocytes % (Manual) Seg Neutrophils # Seg Neutrophils # Man Lymphocytes # (Manual) Monocytes # (Manual) Basophils # (Manual) Percent Retic PT 17.5 H INR 1.44 H APTT Heparin Anti-Xa Level POC ABG pH 7.460 H POC ABG pCO2 27.9 L POC ABG pO2 Sodium Potassium Chloride Carbon Dioxide BUN Creatinine Glucose POC Glucose 189 H Calcium Phosphorus Iron TIBC Lactate Dehydrogenase Total Creatine Kinase NT-Pro-B Natriuret Pep Total Protein Albumin Symjt-1-Rjljdjdza Wrtaj-8-Agpvswryw Beta Globulins PEP Interpretation Cholesterol LDL Cholesterol Direct Vitamin B12 Urine WBC (Auto) Urine Creatinine Crossmatch 04/22/16 04/22/16 04/22/16 05:43 06:40 08:08 WBC RBC Hgb Hct MCV MCH MCHC RDW Plt Count Lymph % (Auto) [place] % (Auto) Lymph # [place] # Baso # Seg Neutrophils % Seg Neuts % (Manual) Lymphocytes % (Manual) Monocytes % (Manual) Seg Neutrophils # Seg Neutrophils # Man Lymphocytes # (Manual) Monocytes # (Manual) Basophils # (Manual) Percent Retic PT INR APTT Heparin Anti-Xa Level POC ABG pH POC ABG pCO2 POC ABG pO2 Sodium Potassium Chloride Carbon Dioxide BUN Creatinine Glucose POC Glucose 56 L 136 H 134 H Calcium Phosphorus Iron TIBC Lactate Dehydrogenase Total Creatine Kinase NT-Pro-B Natriuret Pep Total Protein Albumin Tszlg-3-Pqdfjqlcp Excds-3-Qtrgdvutf Beta Globulins PEP Interpretation Cholesterol LDL Cholesterol Direct Vitamin B12 Urine WBC (Auto) Urine Creatinine Crossmatch 04/22/16 04/22/16 04/22/16 11:18 12:10 18:17 WBC RBC Hgb Hct MCV MCH MCHC RDW Plt Count Lymph % (Auto) [place] % (Auto) Lymph # [place] # Baso # Seg Neutrophils % Seg Neuts % (Manual) Lymphocytes % (Manual) Monocytes % (Manual) Seg Neutrophils # Seg Neutrophils # Man Lymphocytes # (Manual) Monocytes # (Manual) Basophils # (Manual) Percent Retic PT INR APTT Heparin Anti-Xa Level 0.12 L POC ABG pH POC ABG pCO2 POC ABG pO2 Sodium Potassium Chloride Carbon Dioxide BUN Creatinine Glucose POC Glucose 142 H 227 H Calcium Phosphorus Iron TIBC Lactate Dehydrogenase Total Creatine Kinase NT-Pro-B Natriuret Pep Total Protein Albumin Imoqd-8-Hnzrtlszm Jvqxf-3-Lervwbbmq Beta Globulins PEP Interpretation Cholesterol LDL Cholesterol Direct Vitamin B12 Urine WBC (Auto) Urine Creatinine Crossmatch 04/22/16 04/22/16 04/23/16 22:28 23:47 04:49 WBC RBC Hgb Hct MCV MCH MCHC RDW Plt Count Lymph % (Auto) [place] % (Auto) Lymph # [place] # Baso # Seg Neutrophils % Seg Neuts % (Manual) Lymphocytes % (Manual) Monocytes % (Manual) Seg Neutrophils # Seg Neutrophils # Man Lymphocytes # (Manual) Monocytes # (Manual) Basophils # (Manual) Percent Retic PT INR APTT Heparin Anti-Xa Level 0.16 L POC ABG pH POC ABG pCO2 32.6 L POC ABG pO2 122 H Sodium Potassium Chloride Carbon Dioxide BUN Creatinine Glucose POC Glucose 266 H Calcium Phosphorus Iron TIBC Lactate Dehydrogenase Total Creatine Kinase NT-Pro-B Natriuret Pep Total Protein Albumin Jtrjp-0-Tzdaijqhb Wmutm-8-Nvzyhlryc Beta Globulins PEP Interpretation Cholesterol LDL Cholesterol Direct Vitamin B12 Urine WBC (Auto) Urine Creatinine Crossmatch 04/23/16 04/23/16 04/23/16 05:41 08:05 08:34 WBC RBC Hgb Hct MCV MCH MCHC RDW Plt Count Lymph % (Auto) [place] % (Auto) Lymph # [place] # Baso # Seg Neutrophils % Seg Neuts % (Manual) Lymphocytes % (Manual) Monocytes % (Manual) Seg Neutrophils # Seg Neutrophils # Man Lymphocytes # (Manual) Monocytes # (Manual) Basophils # (Manual) Percent Retic PT INR APTT Heparin Anti-Xa Level POC ABG pH POC ABG pCO2 POC ABG pO2 Sodium Potassium Chloride 109.5 H Carbon Dioxide 21 L BUN 23 H Creatinine Glucose 227 H POC Glucose 227 H 224 H Calcium 8.2 L Phosphorus Iron TIBC Lactate Dehydrogenase Total Creatine Kinase NT-Pro-B Natriuret Pep Total Protein Albumin Gdjbo-4-Zrfwgjgpi Mxura-7-Lgqqbrztq Beta Globulins PEP Interpretation Cholesterol LDL Cholesterol Direct Vitamin B12 Urine WBC (Auto) Urine Creatinine Crossmatch 04/23/16 04/23/16 04/23/16 10:45 11:37 22:49 WBC RBC Hgb Hct MCV MCH MCHC RDW Plt Count Lymph % (Auto) [place] % (Auto) Lymph # [place] # Baso # Seg Neutrophils % Seg Neuts % (Manual) Lymphocytes % (Manual) Monocytes % (Manual) Seg Neutrophils # Seg Neutrophils # Man Lymphocytes # (Manual) Monocytes # (Manual) Basophils # (Manual) Percent Retic PT 15.9 H INR 1.28 H APTT Heparin Anti-Xa Level 0.12 L POC ABG pH POC ABG pCO2 POC ABG pO2 Sodium Potassium Chloride Carbon Dioxide BUN Creatinine Glucose POC Glucose 256 H Calcium Phosphorus Iron TIBC Lactate Dehydrogenase Total Creatine Kinase NT-Pro-B Natriuret Pep Total Protein Albumin Rzgra-3-Icnomksnn Baemp-4-Lumlmygbu Beta Globulins PEP Interpretation Cholesterol LDL Cholesterol Direct Vitamin B12 Urine WBC (Auto) Urine Creatinine Crossmatch 04/23/16 04/24/16 04/24/16 23:59 05:29 06:03 WBC RBC Hgb Hct MCV MCH MCHC RDW Plt Count Lymph % (Auto) [place] % (Auto) Lymph # [place] # Baso # Seg Neutrophils % Seg Neuts % (Manual) Lymphocytes % (Manual) Monocytes % (Manual) Seg Neutrophils # Seg Neutrophils # Man Lymphocytes # (Manual) Monocytes # (Manual) Basophils # (Manual) Percent Retic PT INR APTT Heparin Anti-Xa Level POC ABG pH 7.464 H POC ABG pCO2 32.4 L POC ABG pO2 115 H Sodium Potassium Chloride Carbon Dioxide BUN Creatinine Glucose POC Glucose 176 H 256 H Calcium Phosphorus Iron TIBC Lactate Dehydrogenase Total Creatine Kinase NT-Pro-B Natriuret Pep Total Protein Albumin Dchdz-4-Tznodrgja Hqann-1-Djhwjumik Beta Globulins PEP Interpretation Cholesterol LDL Cholesterol Direct Vitamin B12 Urine WBC (Auto) Urine Creatinine Crossmatch 04/24/16 04/24/16 04/24/16 07:59 12:10 17:17 WBC RBC Hgb Hct MCV MCH MCHC RDW Plt Count Lymph % (Auto) [place] % (Auto) Lymph # [place] # Baso # Seg Neutrophils % Seg Neuts % (Manual) Lymphocytes % (Manual) Monocytes % (Manual) Seg Neutrophils # Seg Neutrophils # Man Lymphocytes # (Manual) Monocytes # (Manual) Basophils # (Manual) Percent Retic PT INR APTT Heparin Anti-Xa Level 0.18 L POC ABG pH POC ABG pCO2 POC ABG pO2 Sodium Potassium Chloride Carbon Dioxide BUN Creatinine Glucose POC Glucose 304 H 325 H Calcium Phosphorus Iron TIBC Lactate Dehydrogenase Total Creatine Kinase NT-Pro-B Natriuret Pep Total Protein Albumin Ftyon-9-Hppkvqpgv Apjvp-1-Yhhgtnjsp Beta Globulins PEP Interpretation Cholesterol LDL Cholesterol Direct Vitamin B12 Urine WBC (Auto) Urine Creatinine Crossmatch 04/25/16 04/25/16 04/25/16 00:52 06:40 06:44 WBC RBC Hgb Hct MCV MCH MCHC RDW Plt Count Lymph % (Auto) [place] % (Auto) Lymph # [place] # Baso # Seg Neutrophils % Seg Neuts % (Manual) Lymphocytes % (Manual) Monocytes % (Manual) Seg Neutrophils # Seg Neutrophils # Man Lymphocytes # (Manual) Monocytes # (Manual) Basophils # (Manual) Percent Retic PT INR APTT Heparin Anti-Xa Level 0.11 L POC ABG pH POC ABG pCO2 POC ABG pO2 Sodium Potassium Chloride Carbon Dioxide BUN Creatinine Glucose POC Glucose 212 H 184 H Calcium Phosphorus Iron TIBC Lactate Dehydrogenase Total Creatine Kinase NT-Pro-B Natriuret Pep Total Protein Albumin Iljsf-2-Gnuuzpati Emnha-8-Jqnrrjggc Beta Globulins PEP Interpretation Cholesterol LDL Cholesterol Direct Vitamin B12 Urine WBC (Auto) Urine Creatinine Crossmatch 04/25/16 04/25/16 04/25/16 11:40 13:26 17:27 WBC RBC Hgb Hct MCV MCH MCHC RDW Plt Count Lymph % (Auto) [place] % (Auto) Lymph # [place] # Baso # Seg Neutrophils % Seg Neuts % (Manual) Lymphocytes % (Manual) Monocytes % (Manual) Seg Neutrophils # Seg Neutrophils # Man Lymphocytes # (Manual) Monocytes # (Manual) Basophils # (Manual) Percent Retic PT INR APTT Heparin Anti-Xa Level 0.21 L POC ABG pH POC ABG pCO2 POC ABG pO2 Sodium Potassium Chloride Carbon Dioxide BUN Creatinine Glucose POC Glucose 206 H 204 H Calcium Phosphorus Iron TIBC Lactate Dehydrogenase Total Creatine Kinase NT-Pro-B Natriuret Pep Total Protein Albumin Qtlfg-3-Ilillbxxg Pabrr-4-Bwkrjvseb Beta Globulins PEP Interpretation Cholesterol LDL Cholesterol Direct Vitamin B12 Urine WBC (Auto) Urine Creatinine Crossmatch 04/25/16 04/26/16 04/26/16 23:46 06:31 11:51 WBC RBC Hgb Hct MCV MCH MCHC RDW Plt Count Lymph % (Auto) [place] % (Auto) Lymph # [place] # Baso # Seg Neutrophils % Seg Neuts % (Manual) Lymphocytes % (Manual) Monocytes % (Manual) Seg Neutrophils # Seg Neutrophils # Man Lymphocytes # (Manual) Monocytes # (Manual) Basophils # (Manual) Percent Retic PT INR APTT Heparin Anti-Xa Level POC ABG pH POC ABG pCO2 POC ABG pO2 Sodium Potassium Chloride Carbon Dioxide BUN Creatinine Glucose POC Glucose 162 H 148 H 178 H Calcium Phosphorus Iron TIBC Lactate Dehydrogenase Total Creatine Kinase NT-Pro-B Natriuret Pep Total Protein Albumin [id number] Chrha-3-Ohkrnctvt Beta Globulins PEP Interpretation Cholesterol LDL Cholesterol Direct Vitamin B12 Urine WBC (Auto) Urine Creatinine Crossmatch 04/26/16 04/26/16 04/26/16 12:17 16:16 18:14 WBC RBC Hgb Hct MCV MCH MCHC RDW Plt Count Lymph % (Auto) [place] % (Auto) Lymph # [place] # Baso # Seg Neutrophils % Seg Neuts % (Manual) Lymphocytes % (Manual) Monocytes % (Manual) Seg Neutrophils # Seg Neutrophils # Man Lymphocytes # (Manual) Monocytes # (Manual) Basophils # (Manual) Percent Retic PT INR APTT Heparin Anti-Xa Level POC ABG pH 7.513 H POC ABG pCO2 POC ABG pO2 76 L Sodium Potassium Chloride Carbon Dioxide BUN Creatinine Glucose POC Glucose 186 H 172 H Calcium Phosphorus Iron TIBC Lactate Dehydrogenase Total Creatine Kinase NT-Pro-B Natriuret Pep Total Protein Albumin Yhnvg-1-Splawlqhf Zalyq-8-Iogfhbymz Beta Globulins PEP Interpretation Cholesterol LDL Cholesterol Direct Vitamin B12 Urine WBC (Auto) Urine Creatinine Crossmatch 04/26/16 04/26/16 04/27/16 19:27 23:28 04:21 WBC 13.1 H RBC 2.99 L Hgb 7.8 L Hct 24.0 L MCV 81 L MCH 26 L MCHC RDW 16.7 H Plt Count 486 H Lymph % (Auto) 12.5 L [place] % (Auto) 7.9 H Lymph # [place] # 1.0 H Baso # Seg Neutrophils % 77.5 H Seg Neuts % (Manual) Lymphocytes % (Manual) Monocytes % (Manual) Seg Neutrophils # 10.2 H Seg Neutrophils # Man Lymphocytes # (Manual) Monocytes # (Manual) Basophils # (Manual) Percent Retic PT INR APTT Heparin Anti-Xa Level 0.22 L POC ABG pH POC ABG pCO2 POC ABG pO2 Sodium Potassium Chloride Carbon Dioxide BUN Creatinine Glucose POC Glucose 141 H Calcium Phosphorus Iron TIBC Lactate Dehydrogenase Total Creatine Kinase NT-Pro-B Natriuret Pep Total Protein Albumin Ceugp-0-Psaauzjtx Wjiil-0-Kqbexohyv Beta Globulins PEP Interpretation Cholesterol LDL Cholesterol Direct Vitamin B12 Urine WBC (Auto) Urine Creatinine Crossmatch 04/27/16 04/27/16 04/27/16 04:21 05:46 11:04 WBC RBC Hgb Hct MCV MCH MCHC RDW Plt Count Lymph % (Auto) [place] % (Auto) Lymph # [place] # Baso # Seg Neutrophils % Seg Neuts % (Manual) Lymphocytes % (Manual) Monocytes % (Manual) Seg Neutrophils # Seg Neutrophils # Man Lymphocytes # (Manual) Monocytes # (Manual) Basophils # (Manual) Percent Retic PT INR APTT Heparin Anti-Xa Level POC ABG pH 7.489 H POC ABG pCO2 POC ABG pO2 71 L Sodium Potassium Chloride Carbon Dioxide BUN Creatinine 0.6 L Glucose 187 H POC Glucose 192 H Calcium 8.0 L Phosphorus Iron TIBC Lactate Dehydrogenase Total Creatine Kinase NT-Pro-B Natriuret Pep Total Protein 6.0 L Albumin 2.0 L Hucmg-1-Brqgfpkvm Wflal-8-Grkoblxnt Beta Globulins PEP Interpretation Cholesterol LDL Cholesterol Direct Vitamin B12 Urine WBC (Auto) Urine Creatinine Crossmatch 04/27/16 04/27/16 04/27/16 14:12 21:58 23:38 WBC RBC Hgb Hct MCV MCH MCHC RDW Plt Count Lymph % (Auto) [place] % (Auto) Lymph # [place] # Baso # Seg Neutrophils % Seg Neuts % (Manual) Lymphocytes % (Manual) Monocytes % (Manual) Seg Neutrophils # Seg Neutrophils # Man Lymphocytes # (Manual) Monocytes # (Manual) Basophils # (Manual) Percent Retic PT INR APTT Heparin Anti-Xa Level 0.24 L POC ABG pH POC ABG pCO2 POC ABG pO2 Sodium Potassium Chloride Carbon Dioxide BUN Creatinine Glucose POC Glucose 216 H 181 H Calcium Phosphorus Iron TIBC Lactate Dehydrogenase Total Creatine Kinase NT-Pro-B Natriuret Pep Total Protein Albumin Dovgq-0-Ebgpsrwcd Gvlyu-6-Bfbbieuda Beta Globulins PEP Interpretation Cholesterol LDL Cholesterol Direct Vitamin B12 Urine WBC (Auto) Urine Creatinine Crossmatch 04/28/16 04/28/16 04/28/16 04:28 05:52 11:31 WBC RBC Hgb Hct MCV MCH MCHC RDW Plt Count Lymph % (Auto) [place] % (Auto) Lymph # [place] # Baso # Seg Neutrophils % Seg Neuts % (Manual) Lymphocytes % (Manual) Monocytes % (Manual) Seg Neutrophils # Seg Neutrophils # Man Lymphocytes # (Manual) Monocytes # (Manual) Basophils # (Manual) Percent Retic PT INR APTT Heparin Anti-Xa Level POC ABG pH 7.524 H POC ABG pCO2 POC ABG pO2 Sodium Potassium Chloride Carbon Dioxide BUN Creatinine Glucose POC Glucose 254 H 280 H Calcium Phosphorus Iron TIBC Lactate Dehydrogenase Total Creatine Kinase NT-Pro-B Natriuret Pep Total Protein Albumin Megri-7-Whpgchmno Pgrrd-1-Jdychcrqm Beta Globulins PEP Interpretation Cholesterol LDL Cholesterol Direct Vitamin B12 Urine WBC (Auto) Urine Creatinine Crossmatch 04/28/16 04/28/1616 17:30 19:52 00:47 WBC RBC Hgb Hct MCV MCH MCHC RDW Plt Count Lymph % (Auto) [place] % (Auto) Lymph # [place] # Baso # Seg Neutrophils % Seg Neuts % (Manual) Lymphocytes % (Manual) Monocytes % (Manual) Seg Neutrophils # Seg Neutrophils # Man Lymphocytes # (Manual) Monocytes # (Manual) Basophils # (Manual) Percent Retic PT INR APTT Heparin Anti-Xa Level 0.15 L POC ABG pH POC ABG pCO2 POC ABG pO2 Sodium Potassium Chloride Carbon Dioxide BUN Creatinine Glucose POC Glucose 208 H 265 H Calcium Phosphorus Iron TIBC Lactate Dehydrogenase Total Creatine Kinase NT-Pro-B Natriuret Pep Total Protein Albumin Dbjth-9-Djbhtyuwj Qixir-4-Rvjhlmorn Beta Globulins PEP Interpretation Cholesterol LDL Cholesterol Direct Vitamin B12 Urine WBC (Auto) Urine Creatinine Crossmatch 04/29/16 04/29/16 04/29/16 04:00 04:00 04:29 WBC 13.4 H RBC 2.56 L Hgb 6.9 L Hct 20.6 L MCV 81 L MCH 27 L MCHC RDW 16.2 H Plt Count 513 H Lymph % (Auto) 10.0 L [place] % (Auto) 12.0 H Lymph # [place] # 1.6 H Baso # Seg Neutrophils % 77.1 H Seg Neuts % (Manual) Lymphocytes % (Manual) Monocytes % (Manual) Seg Neutrophils # 10.4 H Seg Neutrophils # Man Lymphocytes # (Manual) Monocytes # (Manual) Basophils # (Manual) Percent Retic PT INR APTT Heparin Anti-Xa Level POC ABG pH 7.501 H POC ABG pCO2 POC ABG pO2 76 L Sodium Potassium Chloride Carbon Dioxide BUN 27 H Creatinine Glucose 204 H POC Glucose Calcium 8.1 L Phosphorus Iron TIBC Lactate Dehydrogenase Total Creatine Kinase NT-Pro-B Natriuret Pep Total Protein Albumin Ebesu-0-Enpoffmdi Ilcun-1-Ooiaowarw Beta Globulins PEP Interpretation Cholesterol LDL Cholesterol Direct Vitamin B12 Urine WBC (Auto) Urine Creatinine Crossmatch 04/29/16 04/29/16 04/29/16 06:03 10:05 10:16 WBC RBC Hgb Hct MCV MCH MCHC RDW Plt Count Lymph % (Auto) [place] % (Auto) Lymph # [place] # Baso # Seg Neutrophils % Seg Neuts % (Manual) Lymphocytes % (Manual) Monocytes % (Manual) Seg Neutrophils # Seg Neutrophils # Man Lymphocytes # (Manual) Monocytes # (Manual) Basophils # (Manual) Percent Retic 3.68 H PT INR APTT Heparin Anti-Xa Level POC ABG pH POC ABG pCO2 POC ABG pO2 Sodium Potassium Chloride Carbon Dioxide BUN Creatinine Glucose POC Glucose 192 H Calcium Phosphorus Iron TIBC Lactate Dehydrogenase Total Creatine Kinase NT-Pro-B Natriuret Pep Total Protein Albumin Ffplr-4-Ryqwqukfu Lwuin-9-Nwosdtaki Beta Globulins PEP Interpretation Cholesterol LDL Cholesterol Direct Vitamin B12 Urine WBC (Auto) Urine Creatinine Crossmatch See Detail 04/29/16 04/29/16 04/29/16 10:16 10:16 11:23 WBC RBC Hgb Hct MCV MCH MCHC RDW Plt Count Lymph % (Auto) [place] % (Auto) Lymph # [place] # Baso # Seg Neutrophils % Seg Neuts % (Manual) Lymphocytes % (Manual) Monocytes % (Manual) Seg Neutrophils # Seg Neutrophils # Man Lymphocytes # (Manual) Monocytes # (Manual) Basophils # (Manual) Percent Retic PT INR APTT Heparin Anti-Xa Level POC ABG pH POC ABG pCO2 POC ABG pO2 Sodium Potassium Chloride Carbon Dioxide BUN Creatinine Glucose POC Glucose 116 H Calcium Phosphorus Iron 10 L TIBC 138 L Lactate Dehydrogenase 204 H Total Creatine Kinase NT-Pro-B Natriuret Pep Total Protein Albumin Glsub-2-Wguddzpgr Oshaw-8-Sdtoibvjr Beta Globulins PEP Interpretation Cholesterol LDL Cholesterol Direct Vitamin B12 1005 H Urine WBC (Auto) Urine Creatinine Crossmatch 04/29/16 04/29/16 04/30/16 17:34 23:19 03:19 WBC RBC Hgb 9.0 L Hct 26.7 L D MCV MCH MCHC RDW Plt Count Lymph % (Auto) [place] % (Auto) Lymph # [place] # Baso # Seg Neutrophils % Seg Neuts % (Manual) Lymphocytes % (Manual) Monocytes % (Manual) Seg Neutrophils # Seg Neutrophils # Man Lymphocytes # (Manual) Monocytes # (Manual) Basophils # (Manual) Percent Retic PT INR APTT Heparin Anti-Xa Level POC ABG pH POC ABG pCO2 POC ABG pO2 Sodium Potassium Chloride Carbon Dioxide BUN Creatinine Glucose POC Glucose 142 H 242 H Calcium Phosphorus Iron TIBC Lactate Dehydrogenase Total Creatine Kinase NT-Pro-B Natriuret Pep Total Protein Albumin Xdhbx-6-Hhdxnbkze Nhdat-8-Ycsyvfgpw Beta Globulins PEP Interpretation Cholesterol LDL Cholesterol Direct Vitamin B12 Urine WBC (Auto) Urine Creatinine Crossmatch 04/30/16 04/30/16 04/30/16 04:10 04:10 04:32 WBC 13.8 H RBC 3.54 L Hgb 9.3 L Hct 29.1 L MCV 82 L MCH 26 L MCHC RDW 16.5 H Plt Count 535 H Lymph % (Auto) 7.5 L [place] % (Auto) 13.8 H Lymph # 1.0 L [place] # 1.9 H Baso # Seg Neutrophils % 78.0 H Seg Neuts % (Manual) Lymphocytes % (Manual) Monocytes % (Manual) Seg Neutrophils # 10.7 H Seg Neutrophils # Man Lymphocytes # (Manual) Monocytes # (Manual) Basophils # (Manual) Percent Retic PT INR APTT Heparin Anti-Xa Level POC ABG pH 7.519 H POC ABG pCO2 33.6 L POC ABG pO2 79 L Sodium 146 H Potassium Chloride Carbon Dioxide BUN Creatinine 0.7 L Glucose 242 H POC Glucose Calcium 8.3 L Phosphorus Iron TIBC Lactate Dehydrogenase Total Creatine Kinase NT-Pro-B Natriuret Pep Total Protein Albumin Dcpbl-1-Gxtwymyhb Kogqk-0-Gyqpuvlyl Beta Globulins PEP Interpretation Cholesterol LDL Cholesterol Direct Vitamin B12 Urine WBC (Auto) Urine Creatinine Crossmatch 04/30/16 04/30/16 04/30/16 05:33 11:23 17:26 WBC RBC Hgb Hct MCV MCH MCHC RDW Plt Count Lymph % (Auto) [place] % (Auto) Lymph # [place] # Baso # Seg Neutrophils % Seg Neuts % (Manual) Lymphocytes % (Manual) Monocytes % (Manual) Seg Neutrophils # Seg Neutrophils # Man Lymphocytes # (Manual) Monocytes # (Manual) Basophils # (Manual) Percent Retic PT INR APTT Heparin Anti-Xa Level POC ABG pH POC ABG pCO2 POC ABG pO2 Sodium Potassium Chloride Carbon Dioxide BUN Creatinine Glucose POC Glucose 242 H 305 H 281 H Calcium Phosphorus Iron TIBC Lactate Dehydrogenase Total Creatine Kinase NT-Pro-B Natriuret Pep Total Protein Albumin Arraq-5-Wrqbvixai Bjwjy-4-Vysxmchmm Beta Globulins PEP Interpretation Cholesterol LDL Cholesterol Direct Vitamin B12 Urine WBC (Auto) Urine Creatinine Crossmatch 04/30/16 05/01/16 05/01/16 23:53 04:00 04:00 WBC 15.9 H RBC 2.99 L Hgb 7.9 L Hct 24.4 L MCV 82 L MCH 26 L MCHC RDW 16.9 H Plt Count 481 H Lymph % (Auto) 9.3 L [place] % (Auto) 15.0 H Lymph # [place] # 2.4 H Baso # Seg Neutrophils % 74.9 H Seg Neuts % (Manual) Lymphocytes % (Manual) Monocytes % (Manual) Seg Neutrophils # 11.9 H Seg Neutrophils # Man Lymphocytes # (Manual) Monocytes # (Manual) Basophils # (Manual) Percent Retic PT INR APTT Heparin Anti-Xa Level POC ABG pH POC ABG pCO2 POC ABG pO2 Sodium 147 H Potassium Chloride 107.8 H Carbon Dioxide BUN 22 H Creatinine 0.7 L Glucose 229 H POC Glucose 207 H Calcium 8.2 L Phosphorus Iron TIBC Lactate Dehydrogenase Total Creatine Kinase NT-Pro-B Natriuret Pep Total Protein Albumin Anoev-9-Gspxydhxx Rrffw-1-Miikthfrt Beta Globulins PEP Interpretation Cholesterol LDL Cholesterol Direct Vitamin B12 Urine WBC (Auto) Urine Creatinine Crossmatch 05/01/16 05/01/16 05/01/16 05:12 07:41 12:33 WBC RBC Hgb Hct MCV MCH MCHC RDW Plt Count Lymph % (Auto) [place] % (Auto) Lymph # [place] # Baso # Seg Neutrophils % Seg Neuts % (Manual) Lymphocytes % (Manual) Monocytes % (Manual) Seg Neutrophils # Seg Neutrophils # Man Lymphocytes # (Manual) Monocytes # (Manual) Basophils # (Manual) Percent Retic PT INR APTT Heparin Anti-Xa Level 0.16 L POC ABG pH POC ABG pCO2 POC ABG pO2 Sodium Potassium Chloride Carbon Dioxide BUN Creatinine Glucose POC Glucose 284 H 186 H Calcium Phosphorus Iron TIBC Lactate Dehydrogenase Total Creatine Kinase NT-Pro-B Natriuret Pep Total Protein Albumin Twzsd-5-Vsynlfnje Ebxcv-3-Vorafacid Beta Globulins PEP Interpretation Cholesterol LDL Cholesterol Direct Vitamin B12 Urine WBC (Auto) Urine Creatinine Crossmatch 05/01/16 05/01/16 05/02/16 17:24 23:19 04:48 WBC 17.2 H RBC 3.09 L Hgb 8.1 L Hct 25.5 L MCV 83 L MCH 26 L MCHC RDW 17.3 H Plt Count 507 H Lymph % (Auto) 8.0 L [place] % (Auto) 13.6 H Lymph # [place] # 2.3 H Baso # Seg Neutrophils % 77.5 H Seg Neuts % (Manual) Lymphocytes % (Manual) Monocytes % (Manual) Seg Neutrophils # 13.4 H Seg Neutrophils # Man Lymphocytes # (Manual) Monocytes # (Manual) Basophils # (Manual) Percent Retic PT INR APTT Heparin Anti-Xa Level POC ABG pH POC ABG pCO2 POC ABG pO2 Sodium Potassium Chloride Carbon Dioxide BUN Creatinine Glucose POC Glucose 171 H 132 H Calcium Phosphorus Iron TIBC Lactate Dehydrogenase Total Creatine Kinase NT-Pro-B Natriuret Pep Total Protein Albumin Ntmla-8-Iszuxtewf Nrwqg-4-Yeretqxun Beta Globulins PEP Interpretation Cholesterol LDL Cholesterol Direct Vitamin B12 Urine WBC (Auto) Urine Creatinine Crossmatch 05/02/16 05/02/16 05/02/16 04:48 04:48 05:42 WBC RBC Hgb Hct MCV MCH MCHC RDW Plt Count Lymph % (Auto) [place] % (Auto) Lymph # [place] # Baso # Seg Neutrophils % Seg Neuts % (Manual) Lymphocytes % (Manual) Monocytes % (Manual) Seg Neutrophils # Seg Neutrophils # Man Lymphocytes # (Manual) Monocytes # (Manual) Basophils # (Manual) Percent Retic PT INR APTT Heparin Anti-Xa Level 0.19 L POC ABG pH POC ABG pCO2 POC ABG pO2 Sodium 149 H Potassium Chloride 109.9 H Carbon Dioxide BUN 24 H Creatinine Glucose 224 H POC Glucose 253 H Calcium 8.2 L Phosphorus Iron TIBC Lactate Dehydrogenase Total Creatine Kinase NT-Pro-B Natriuret Pep Total Protein Albumin Haalv-9-Hlzpgrefp Tjhaj-6-Nkyeyacbg Beta Globulins PEP Interpretation Cholesterol LDL Cholesterol Direct Vitamin B12 Urine WBC (Auto) Urine Creatinine Crossmatch 05/02/16 05/02/16 05/02/16 12:01 16:40 23:35 WBC RBC Hgb Hct MCV MCH MCHC RDW Plt Count Lymph % (Auto) [place] % (Auto) Lymph # [place] # Baso # Seg Neutrophils % Seg Neuts % (Manual) Lymphocytes % (Manual) Monocytes % (Manual) Seg Neutrophils # Seg Neutrophils # Man Lymphocytes # (Manual) Monocytes # (Manual) Basophils # (Manual) Percent Retic PT INR APTT Heparin Anti-Xa Level POC ABG pH POC ABG pCO2 POC ABG pO2 Sodium Potassium Chloride Carbon Dioxide BUN Creatinine Glucose POC Glucose 197 H 126 H 303 H Calcium Phosphorus Iron TIBC Lactate Dehydrogenase Total Creatine Kinase NT-Pro-B Natriuret Pep Total Protein Albumin Yatzw-2-Zevdnfocx Rstun-2-Axocpkbkz Beta Globulins PEP Interpretation Cholesterol LDL Cholesterol Direct Vitamin B12 Urine WBC (Auto) Urine Creatinine Crossmatch 05/03/16 05/03/16 05/03/16 04:31 04:31 04:31 WBC 19.1 H RBC 3.15 L Hgb 8.6 L Hct 25.7 L MCV 82 L MCH MCHC RDW 17.4 H Plt Count 525 H Lymph % (Auto) [place] % (Auto) Lymph # [place] # Baso # Seg Neutrophils % Seg Neuts % (Manual) Lymphocytes % (Manual) 10.0 L Monocytes % (Manual) 13.0 H Seg Neutrophils # Seg Neutrophils # Man 13.2 H Lymphocytes # (Manual) Monocytes # (Manual) 2.5 H Basophils # (Manual) 0.2 H Percent Retic PT INR APTT Heparin Anti-Xa Level 0.16 L POC ABG pH POC ABG pCO2 POC ABG pO2 Sodium 151 H Potassium Chloride 112.9 H Carbon Dioxide BUN 24 H Creatinine 0.7 L Glucose 303 H POC Glucose Calcium Phosphorus Iron TIBC Lactate Dehydrogenase Total Creatine Kinase NT-Pro-B Natriuret Pep Total Protein Albumin Sclhx-1-Qbkuohvtm Jrzka-1-Qlxmdgzbg Beta Globulins PEP Interpretation Cholesterol LDL Cholesterol Direct Vitamin B12 Urine WBC (Auto) Urine Creatinine Crossmatch 05/03/16 05/03/16 05/04/16 12:08 18:05 00:11 WBC RBC Hgb Hct MCV MCH MCHC RDW Plt Count Lymph % (Auto) [place] % (Auto) Lymph # [place] # Baso # Seg Neutrophils % Seg Neuts % (Manual) Lymphocytes % (Manual) Monocytes % (Manual) Seg Neutrophils # Seg Neutrophils # Man Lymphocytes # (Manual) Monocytes # (Manual) Basophils # (Manual) Percent Retic PT INR APTT Heparin Anti-Xa Level POC ABG pH POC ABG pCO2 POC ABG pO2 Sodium Potassium Chloride Carbon Dioxide BUN Creatinine Glucose POC Glucose 452 H 370 H 374 H Calcium Phosphorus Iron TIBC Lactate Dehydrogenase Total Creatine Kinase NT-Pro-B Natriuret Pep Total Protein Albumin Gyfyl-4-Qfbnngksn Ljjrp-0-Vjugnfgfm Beta Globulins PEP Interpretation Cholesterol LDL Cholesterol Direct Vitamin B12 Urine WBC (Auto) Urine Creatinine Crossmatch 05/04/16 05/04/16 05/04/16 04:31 04:31 04:31 WBC 19.8 H RBC 2.90 L Hgb 7.8 L Hct 23.8 L MCV 82 L MCH 27 L MCHC RDW 17.9 H Plt Count 504 H Lymph % (Auto) [place] % (Auto) Lymph # [place] # Baso # Seg Neutrophils % Seg Neuts % (Manual) Lymphocytes % (Manual) 11.0 L Monocytes % (Manual) 8.0 H Seg Neutrophils # Seg Neutrophils # Man 13.3 H Lymphocytes # (Manual) Monocytes # (Manual) 1.6 H Basophils # (Manual) Percent Retic PT INR APTT Heparin Anti-Xa Level 0.15 L POC ABG pH POC ABG pCO2 POC ABG pO2 Sodium 146 H Potassium Chloride Carbon Dioxide BUN 30 H Creatinine 0.7 L Glucose 321 H POC Glucose Calcium 8.3 L Phosphorus Iron TIBC Lactate Dehydrogenase Total Creatine Kinase NT-Pro-B Natriuret Pep Total Protein Albumin Xcuif-5-Gnwgmogqy Lkanx-2-Urkziiyfp Beta Globulins PEP Interpretation Cholesterol LDL Cholesterol Direct Vitamin B12 Urine WBC (Auto) Urine Creatinine Crossmatch 05/04/16 05/04/16 05/04/16 10:20 11:57 17:36 WBC RBC Hgb Hct MCV MCH MCHC RDW Plt Count Lymph % (Auto) [place] % (Auto) Lymph # [place] # Baso # Seg Neutrophils % Seg Neuts % (Manual) Lymphocytes % (Manual) Monocytes % (Manual) Seg Neutrophils # Seg Neutrophils # Man Lymphocytes # (Manual) Monocytes # (Manual) Basophils # (Manual) Percent Retic PT INR APTT Heparin Anti-Xa Level POC ABG pH POC ABG pCO2 POC ABG pO2 Sodium Potassium Chloride Carbon Dioxide BUN Creatinine Glucose POC Glucose 303 H 271 H Calcium Phosphorus Iron TIBC Lactate Dehydrogenase Total Creatine Kinase NT-Pro-B Natriuret Pep Total Protein Albumin Roqup-0-Jcvpiuapc Ozcdw-6-Nylihkmgk Beta Globulins PEP Interpretation Cholesterol LDL Cholesterol Direct Vitamin B12 Urine WBC (Auto) > 182.0 H Urine Creatinine Crossmatch 05/04/16 05/05/16 05/05/16 23:53 04:13 04:13 WBC 20.9 H RBC 2.92 L Hgb 7.6 L Hct 23.9 L MCV 82 L MCH 26 L MCHC RDW 17.9 H Plt Count 526 H Lymph % (Auto) [place] % (Auto) Lymph # [place] # Baso # Seg Neutrophils % Seg Neuts % (Manual) 93.0 H Lymphocytes % (Manual) 2.0 L Monocytes % (Manual) Seg Neutrophils # Seg Neutrophils # Man 19.4 H Lymphocytes # (Manual) 0.4 L Monocytes # (Manual) Basophils # (Manual) Percent Retic PT INR APTT Heparin Anti-Xa Level POC ABG pH POC ABG pCO2 POC ABG pO2 Sodium 146 H Potassium Chloride Carbon Dioxide BUN 30 H Creatinine 0.7 L Glucose 250 H POC Glucose 235 H Calcium 8.1 L Phosphorus Iron TIBC Lactate Dehydrogenase Total Creatine Kinase NT-Pro-B Natriuret Pep Total Protein Albumin Odcey-2-Vffguxbpo Skegi-1-Yuovuvbdy Beta Globulins PEP Interpretation Cholesterol LDL Cholesterol Direct Vitamin B12 Urine WBC (Auto) Urine Creatinine Crossmatch 05/05/16 05/05/16 05/05/16 05:27 07:36 12:06 WBC RBC Hgb Hct MCV MCH MCHC RDW Plt Count Lymph % (Auto) [place] % (Auto) Lymph # [place] # Baso # Seg Neutrophils % Seg Neuts % (Manual) Lymphocytes % (Manual) Monocytes % (Manual) Seg Neutrophils # Seg Neutrophils # Man Lymphocytes # (Manual) Monocytes # (Manual) Basophils # (Manual) Percent Retic PT INR APTT Heparin Anti-Xa Level < 0.10 L POC ABG pH POC ABG pCO2 POC ABG pO2 Sodium Potassium Chloride Carbon Dioxide BUN Creatinine Glucose POC Glucose 287 H 301 H Calcium Phosphorus Iron TIBC Lactate Dehydrogenase Total Creatine Kinase NT-Pro-B Natriuret Pep Total Protein Albumin Rbphs-2-Fwegfusyy Kimzg-6-Pmuomsbqa Beta Globulins PEP Interpretation Cholesterol LDL Cholesterol Direct Vitamin B12 Urine WBC (Auto) Urine Creatinine Crossmatch 05/05/16 05/05/16 05/06/16 15:58 17:30 00:10 WBC RBC Hgb Hct MCV MCH MCHC RDW Plt Count Lymph % (Auto) [place] % (Auto) Lymph # [place] # Baso # Seg Neutrophils % Seg Neuts % (Manual) Lymphocytes % (Manual) Monocytes % (Manual) Seg Neutrophils # Seg Neutrophils # Man Lymphocytes # (Manual) Monocytes # (Manual) Basophils # (Manual) Percent Retic PT INR APTT Heparin Anti-Xa Level 0.17 L POC ABG pH POC ABG pCO2 POC ABG pO2 Sodium Potassium Chloride Carbon Dioxide BUN Creatinine Glucose POC Glucose 226 H 161 H Calcium Phosphorus Iron TIBC Lactate Dehydrogenase Total Creatine Kinase NT-Pro-B Natriuret Pep Total Protein Albumin Kiecz-5-Jlupewnhe Fczrz-0-Xxqqptkuj Beta Globulins PEP Interpretation Cholesterol LDL Cholesterol Direct Vitamin B12 Urine WBC (Auto) Urine Creatinine Crossmatch 05/06/16 05/06/16 05/06/16 04:23 05:30 05:37 WBC RBC Hgb Hct MCV MCH MCHC RDW Plt Count Lymph % (Auto) [place] % (Auto) Lymph # [place] # Baso # Seg Neutrophils % Seg Neuts % (Manual) Lymphocytes % (Manual) Monocytes % (Manual) Seg Neutrophils # Seg Neutrophils # Man Lymphocytes # (Manual) Monocytes # (Manual) Basophils # (Manual) Percent Retic PT INR APTT Heparin Anti-Xa Level 0.15 L POC ABG pH 7.511 H POC ABG pCO2 POC ABG pO2 Sodium Potassium Chloride Carbon Dioxide BUN Creatinine Glucose POC Glucose 168 H Calcium Phosphorus Iron TIBC Lactate Dehydrogenase Total Creatine Kinase NT-Pro-B Natriuret Pep Total Protein Albumin Iwyxb-4-Iocirrito Anymf-3-Xiixjjnst Beta Globulins PEP Interpretation Cholesterol LDL Cholesterol Direct Vitamin B12 Urine WBC (Auto) Urine Creatinine Crossmatch 05/06/16 05/06/16 05/07/16 12:48 17:22 00:04 WBC RBC Hgb Hct MCV MCH MCHC RDW Plt Count Lymph % (Auto) [place] % (Auto) Lymph # [place] # Baso # Seg Neutrophils % Seg Neuts % (Manual) Lymphocytes % (Manual) Monocytes % (Manual) Seg Neutrophils # Seg Neutrophils # Man Lymphocytes # (Manual) Monocytes # (Manual) Basophils # (Manual) Percent Retic PT INR APTT Heparin Anti-Xa Level POC ABG pH POC ABG pCO2 POC ABG pO2 Sodium Potassium Chloride Carbon Dioxide BUN Creatinine Glucose POC Glucose 206 H 160 H 164 H Calcium Phosphorus Iron TIBC Lactate Dehydrogenase Total Creatine Kinase NT-Pro-B Natriuret Pep Total Protein Albumin Biftu-6-Uwxpzjdoc Xktmu-4-Gntzsczbk Beta Globulins PEP Interpretation Cholesterol LDL Cholesterol Direct Vitamin B12 Urine WBC (Auto) Urine Creatinine Crossmatch 05/07/16 05/07/16 05/07/16 04:02 05:50 11:30 WBC RBC Hgb Hct MCV MCH MCHC RDW Plt Count Lymph % (Auto) [place] % (Auto) Lymph # [place] # Baso # Seg Neutrophils % Seg Neuts % (Manual) Lymphocytes % (Manual) Monocytes % (Manual) Seg Neutrophils # Seg Neutrophils # Man Lymphocytes # (Manual) Monocytes # (Manual) Basophils # (Manual) Percent Retic PT INR APTT Heparin Anti-Xa Level 0.15 L POC ABG pH POC ABG pCO2 POC ABG pO2 Sodium Potassium Chloride Carbon Dioxide BUN Creatinine Glucose POC Glucose 177 H 240 H Calcium Phosphorus Iron TIBC Lactate Dehydrogenase Total Creatine Kinase NT-Pro-B Natriuret Pep Total Protein Albumin Mdmuh-3-Geqmuerhz Xaxmm-1-Wghkaokqi Beta Globulins PEP Interpretation Cholesterol LDL Cholesterol Direct Vitamin B12 Urine WBC (Auto) Urine Creatinine Crossmatch 05/07/16 05/07/16 05/07/16 12:46 17:57 23:54 WBC 20.8 H RBC 2.86 L Hgb 7.6 L Hct 23.3 L MCV 81 L MCH 26 L MCHC RDW 17.9 H Plt Count 559 H Lymph % (Auto) [place] % (Auto) Lymph # [place] # Baso # Seg Neutrophils % Seg Neuts % (Manual) Lymphocytes % (Manual) Monocytes % (Manual) Seg Neutrophils # Seg Neutrophils # Man Lymphocytes # (Manual) Monocytes # (Manual) Basophils # (Manual) Percent Retic PT INR APTT Heparin Anti-Xa Level POC ABG pH POC ABG pCO2 POC ABG pO2 Sodium Potassium Chloride Carbon Dioxide BUN Creatinine Glucose POC Glucose 279 H 201 H Calcium Phosphorus Iron TIBC Lactate Dehydrogenase Total Creatine Kinase NT-Pro-B Natriuret Pep Total Protein Albumin Xclop-5-Rrsozzipr Dvcis-2-Ghinzrukb Beta Globulins PEP Interpretation Cholesterol LDL Cholesterol Direct Vitamin B12 Urine WBC (Auto) Urine Creatinine Crossmatch 05/08/16 05/08/16 05/08/16 04:04 05:39 12:09 WBC RBC Hgb Hct MCV MCH MCHC RDW Plt Count Lymph % (Auto) [place] % (Auto) Lymph # [place] # Baso # Seg Neutrophils % Seg Neuts % (Manual) Lymphocytes % (Manual) Monocytes % (Manual) Seg Neutrophils # Seg Neutrophils # Man Lymphocytes # (Manual) Monocytes # (Manual) Basophils # (Manual) Percent Retic PT INR APTT Heparin Anti-Xa Level 0.20 L POC ABG pH POC ABG pCO2 POC ABG pO2 Sodium Potassium Chloride Carbon Dioxide BUN Creatinine Glucose POC Glucose 153 H 188 H Calcium Phosphorus Iron TIBC Lactate Dehydrogenase Total Creatine Kinase NT-Pro-B Natriuret Pep Total Protein Albumin [id number] Oqhke-0-Muhirobfq Beta Globulins PEP Interpretation Cholesterol LDL Cholesterol Direct Vitamin B12 Urine WBC (Auto) Urine Creatinine Crossmatch 05/08/16 05/08/16 05/08/16 17:44 17:49 18:51 WBC RBC Hgb Hct MCV MCH MCHC RDW Plt Count Lymph % (Auto) [place] % (Auto) Lymph # [place] # Baso # Seg Neutrophils % Seg Neuts % (Manual) Lymphocytes % (Manual) Monocytes % (Manual) Seg Neutrophils # Seg Neutrophils # Man Lymphocytes # (Manual) Monocytes # (Manual) Basophils # (Manual) Percent Retic PT INR APTT Heparin Anti-Xa Level POC ABG pH POC ABG pCO2 POC ABG pO2 Sodium Potassium Chloride Carbon Dioxide BUN Creatinine Glucose POC Glucose 56 L 61 L 135 H Calcium Phosphorus Iron TIBC Lactate Dehydrogenase Total Creatine Kinase NT-Pro-B Natriuret Pep Total Protein Albumin [id number]-2-[id number] Fzfhy-2-Pkkcxtixw Beta Globulins PEP Interpretation Cholesterol LDL Cholesterol Direct Vitamin B12 Urine WBC (Auto) Urine Creatinine Crossmatch 05/09/16 05/09/16 05/09/16 00:14 04:07 05:18 WBC RBC Hgb Hct MCV MCH MCHC RDW Plt Count Lymph % (Auto) [place] % (Auto) Lymph # [place] # Baso # Seg Neutrophils % Seg Neuts % (Manual) Lymphocytes % (Manual) Monocytes % (Manual) Seg Neutrophils # Seg Neutrophils # Man Lymphocytes # (Manual) Monocytes # (Manual) Basophils # (Manual) Percent Retic PT INR APTT Heparin Anti-Xa Level 0.21 L POC ABG pH POC ABG pCO2 POC ABG pO2 Sodium Potassium Chloride Carbon Dioxide BUN Creatinine Glucose POC Glucose 151 H 215 H Calcium Phosphorus Iron TIBC Lactate Dehydrogenase Total Creatine Kinase NT-Pro-B Natriuret Pep Total Protein Albumin Lhcpx-7-Djkcrnyyl Cehji-3-Wniwrdalx Beta Globulins PEP Interpretation Cholesterol LDL Cholesterol Direct Vitamin B12 Urine WBC (Auto) Urine Creatinine Crossmatch 05/09/16 05/09/16 05/09/16 12:27 16:39 17:30 WBC RBC Hgb 6.4 L Hct 20.2 L MCV MCH MCHC RDW Plt Count Lymph % (Auto) [place] % (Auto) Lymph # [place] # Baso # Seg Neutrophils % Seg Neuts % (Manual) Lymphocytes % (Manual) Monocytes % (Manual) Seg Neutrophils # Seg Neutrophils # Man Lymphocytes # (Manual) Monocytes # (Manual) Basophils # (Manual) Percent Retic PT INR APTT Heparin Anti-Xa Level POC ABG pH POC ABG pCO2 POC ABG pO2 Sodium Potassium Chloride Carbon Dioxide BUN Creatinine Glucose POC Glucose 291 H 220 H Calcium Phosphorus Iron TIBC Lactate Dehydrogenase Total Creatine Kinase NT-Pro-B Natriuret Pep Total Protein Albumin Rolkz-3-Kbklxhlqb Uameu-4-Whmkmdado Beta Globulins PEP Interpretation Cholesterol LDL Cholesterol Direct Vitamin B12 Urine WBC (Auto) Urine Creatinine Crossmatch 05/09/16 05/09/16 05/10/16 19:47 23:57 03:55 WBC 16.9 H RBC 3.20 L Hgb 8.6 L Hct 26.7 L D MCV 83 L MCH 27 L MCHC RDW 17.5 H Plt Count 488 H Lymph % (Auto) [place] % (Auto) Lymph # [place] # Baso # Seg Neutrophils % Seg Neuts % (Manual) 76.0 H Lymphocytes % (Manual) 9.0 L Monocytes % (Manual) 10.0 H Seg Neutrophils # Seg Neutrophils # Man 12.8 H Lymphocytes # (Manual) Monocytes # (Manual) 1.7 H Basophils # (Manual) Percent Retic PT INR APTT Heparin Anti-Xa Level POC ABG pH POC ABG pCO2 POC ABG pO2 Sodium Potassium Chloride Carbon Dioxide BUN Creatinine Glucose POC Glucose 217 H Calcium Phosphorus Iron TIBC Lactate Dehydrogenase Total Creatine Kinase NT-Pro-B Natriuret Pep Total Protein Albumin Uszec-1-Tdjnuttrv Rwxyy-9-Avqczaeod Beta Globulins PEP Interpretation Cholesterol LDL Cholesterol Direct Vitamin B12 Urine WBC (Auto) Urine Creatinine Crossmatch See Detail 05/10/16 05/10/16 05/10/16 05:05 11:49 12:54 WBC RBC Hgb 9.1 L Hct 28.2 L MCV MCH MCHC RDW Plt Count Lymph % (Auto) [place] % (Auto) Lymph # [place] # Baso # Seg Neutrophils % Seg Neuts % (Manual) Lymphocytes % (Manual) Monocytes % (Manual) Seg Neutrophils # Seg Neutrophils # Man Lymphocytes # (Manual) Monocytes # (Manual) Basophils # (Manual) Percent Retic PT INR APTT Heparin Anti-Xa Level POC ABG pH POC ABG pCO2 POC ABG pO2 Sodium Potassium Chloride Carbon Dioxide BUN Creatinine Glucose POC Glucose 182 H 237 H Calcium Phosphorus Iron TIBC Lactate Dehydrogenase Total Creatine Kinase NT-Pro-B Natriuret Pep Total Protein Albumin Wqfgp-9-Fflhswygo Qxgwn-4-Wzjmybwhc Beta Globulins PEP Interpretation Cholesterol LDL Cholesterol Direct Vitamin B12 Urine WBC (Auto) Urine Creatinine Crossmatch 05/10/16 05/10/16 05/10/16 12:54 17:29 23:07 WBC RBC Hgb Hct MCV MCH MCHC RDW Plt Count Lymph % (Auto) [place] % (Auto) Lymph # [place] # Baso # Seg Neutrophils % Seg Neuts % (Manual) Lymphocytes % (Manual) Monocytes % (Manual) Seg Neutrophils # Seg Neutrophils # Man Lymphocytes # (Manual) Monocytes # (Manual) Basophils # (Manual) Percent Retic PT INR 1.14 H APTT Heparin Anti-Xa Level POC ABG pH POC ABG pCO2 POC ABG pO2 Sodium Potassium Chloride Carbon Dioxide BUN Creatinine Glucose POC Glucose 198 H 172 H Calcium Phosphorus Iron TIBC Lactate Dehydrogenase Total Creatine Kinase NT-Pro-B Natriuret Pep Total Protein Albumin Lptsy-9-Quxiynxak Kpikl-6-Ytcrjtojm Beta Globulins PEP Interpretation Cholesterol LDL Cholesterol Direct Vitamin B12 Urine WBC (Auto) Urine Creatinine Crossmatch 05/11/16 05/11/16 05/11/16 04:16 04:16 05:13 WBC 16.1 H RBC 3.27 L Hgb 8.8 L Hct 27.7 L MCV MCH 27 L MCHC RDW 17.9 H Plt Count 475 H Lymph % (Auto) 8.9 L [place] % (Auto) 8.0 H Lymph # [place] # 1.3 H Baso # Seg Neutrophils % 81.6 H Seg Neuts % (Manual) Lymphocytes % (Manual) Monocytes % (Manual) Seg Neutrophils # 13.1 H Seg Neutrophils # Man Lymphocytes # (Manual) Monocytes # (Manual) Basophils # (Manual) Percent Retic PT INR APTT Heparin Anti-Xa Level POC ABG pH POC ABG pCO2 POC ABG pO2 Sodium 152 H Potassium Chloride 114.2 H Carbon Dioxide BUN 23 H Creatinine 0.6 L Glucose 166 H POC Glucose 173 H Calcium 8.0 L Phosphorus Iron TIBC Lactate Dehydrogenase Total Creatine Kinase NT-Pro-B Natriuret Pep Total Protein Albumin Xnovn-0-Jdvbmvdmm Vfhwe-1-Grpvbknfm Beta Globulins PEP Interpretation Cholesterol LDL Cholesterol Direct Vitamin B12 Urine WBC (Auto) Urine Creatinine Crossmatch 05/11/16 05/11/16 05/11/16 11:30 17:20 23:53 WBC RBC Hgb Hct MCV MCH MCHC RDW Plt Count Lymph % (Auto) [place] % (Auto) Lymph # [place] # Baso # Seg Neutrophils % Seg Neuts % (Manual) Lymphocytes % (Manual) Monocytes % (Manual) Seg Neutrophils # Seg Neutrophils # Man Lymphocytes # (Manual) Monocytes # (Manual) Basophils # (Manual) Percent Retic PT INR APTT Heparin Anti-Xa Level POC ABG pH POC ABG pCO2 POC ABG pO2 Sodium Potassium Chloride Carbon Dioxide BUN Creatinine Glucose POC Glucose 192 H 147 H 164 H Calcium Phosphorus Iron TIBC Lactate Dehydrogenase Total Creatine Kinase NT-Pro-B Natriuret Pep Total Protein Albumin Mvnvs-3-Eganqrysv Wbpir-2-Eiddpxrql Beta Globulins PEP Interpretation Cholesterol LDL Cholesterol Direct Vitamin B12 Urine WBC (Auto) Urine Creatinine Crossmatch 05/12/16 05/12/16 05/12/16 05:35 07:33 11:01 WBC RBC Hgb 9.2 L Hct 29.2 L MCV MCH MCHC RDW Plt Count 503 H Lymph % (Auto) [place] % (Auto) Lymph # [place] # Baso # Seg Neutrophils % Seg Neuts % (Manual) Lymphocytes % (Manual) Monocytes % (Manual) Seg Neutrophils # Seg Neutrophils # Man Lymphocytes # (Manual) Monocytes # (Manual) Basophils # (Manual) Percent Retic PT INR APTT Heparin Anti-Xa Level POC ABG pH POC ABG pCO2 POC ABG pO2 Sodium 148 H Potassium Chloride 108.5 H Carbon Dioxide BUN Creatinine 0.5 L Glucose 146 H POC Glucose 145 H Calcium 8.2 L Phosphorus Iron TIBC Lactate Dehydrogenase Total Creatine Kinase NT-Pro-B Natriuret Pep Total Protein Albumin Lwyae-7-Byrtlfiuu Wxckm-6-Gxmylvejx Beta Globulins PEP Interpretation Cholesterol LDL Cholesterol Direct Vitamin B12 Urine WBC (Auto) Urine Creatinine Crossmatch 05/12/16 05/12/16 05/12/16 11:44 18:15 19:33 WBC RBC Hgb Hct MCV MCH MCHC RDW Plt Count Lymph % (Auto) [place] % (Auto) Lymph # [place] # Baso # Seg Neutrophils % Seg Neuts % (Manual) Lymphocytes % (Manual) Monocytes % (Manual) Seg Neutrophils # Seg Neutrophils # Man Lymphocytes # (Manual) Monocytes # (Manual) Basophils # (Manual) Percent Retic PT INR APTT Heparin Anti-Xa Level 0.17 L POC ABG pH POC ABG pCO2 POC ABG pO2 Sodium Potassium Chloride Carbon Dioxide BUN Creatinine Glucose POC Glucose 223 H 137 H Calcium Phosphorus Iron TIBC Lactate Dehydrogenase Total Creatine Kinase NT-Pro-B Natriuret Pep Total Protein Albumin Hvehx-2-Renopftwr Tkmlt-0-Gpgtogulg Beta Globulins PEP Interpretation Cholesterol LDL Cholesterol Direct Vitamin B12 Urine WBC (Auto) Urine Creatinine Crossmatch 05/12/16 05/13/16 05/13/16 23:23 04:45 05:43 WBC 18.1 H RBC 3.26 L Hgb 9.0 L Hct 29.0 L MCV MCH MCHC 31 L RDW 18.3 H Plt Count 467 H Lymph % (Auto) [place] % (Auto) Lymph # [place] # Baso # Seg Neutrophils % Seg Neuts % (Manual) 76.0 H Lymphocytes % (Manual) 11.0 L Monocytes % (Manual) 8.0 H Seg Neutrophils # Seg Neutrophils # Man 13.8 H Lymphocytes # (Manual) Monocytes # (Manual) 1.4 H Basophils # (Manual) 0.2 H Percent Retic PT INR APTT Heparin Anti-Xa Level POC ABG pH POC ABG pCO2 POC ABG pO2 Sodium Potassium Chloride Carbon Dioxide BUN Creatinine Glucose POC Glucose 114 H 136 H Calcium Phosphorus Iron TIBC Lactate Dehydrogenase Total Creatine Kinase NT-Pro-B Natriuret Pep Total Protein Albumin Csgpk-7-Ogybjmzvx Hsvkp-7-Bazowdyrk Beta Globulins PEP Interpretation Cholesterol LDL Cholesterol Direct Vitamin B12 Urine WBC (Auto) Urine Creatinine Crossmatch 05/13/16 05/13/16 05/13/16 07:04 08:13 11:22 WBC RBC Hgb Hct MCV MCH MCHC RDW Plt Count Lymph % (Auto) [place] % (Auto) Lymph # [place] # Baso # Seg Neutrophils % Seg Neuts % (Manual) Lymphocytes % (Manual) Monocytes % (Manual) Seg Neutrophils # Seg Neutrophils # Man Lymphocytes # (Manual) Monocytes # (Manual) Basophils # (Manual) Percent Retic PT INR APTT Heparin Anti-Xa Level 0.25 L POC ABG pH POC ABG pCO2 POC ABG pO2 Sodium Potassium Chloride 109.1 H Carbon Dioxide BUN Creatinine 0.5 L Glucose 131 H POC Glucose 155 H Calcium 8.1 L Phosphorus Iron TIBC Lactate Dehydrogenase Total Creatine Kinase NT-Pro-B Natriuret Pep Total Protein Albumin Aygks-4-Evmyggmuq Ylmlo-8-Hjdwdxddj Beta Globulins PEP Interpretation Cholesterol LDL Cholesterol Direct Vitamin B12 Urine WBC (Auto) Urine Creatinine Crossmatch 05/13/16 05/13/16 05/13/16 17:29 17:33 17:59 WBC RBC Hgb Hct MCV MCH MCHC RDW Plt Count Lymph % (Auto) [place] % (Auto) Lymph # [place] # Baso # Seg Neutrophils % Seg Neuts % (Manual) Lymphocytes % (Manual) Monocytes % (Manual) Seg Neutrophils # Seg Neutrophils # Man Lymphocytes # (Manual) Monocytes # (Manual) Basophils # (Manual) Percent Retic PT INR APTT Heparin Anti-Xa Level POC ABG pH POC ABG pCO2 POC ABG pO2 Sodium Potassium Chloride Carbon Dioxide BUN Creatinine Glucose POC Glucose 46 L < 40 L 152 H Calcium Phosphorus Iron TIBC Lactate Dehydrogenase Total Creatine Kinase NT-Pro-B Natriuret Pep Total Protein Albumin Bkeri-0-Yxhbtnqwh Sgwfa-0-Gcejjtjvh Beta Globulins PEP Interpretation Cholesterol LDL Cholesterol Direct Vitamin B12 Urine WBC (Auto) Urine Creatinine Crossmatch 05/13/16 05/14/16 05/14/16 18:06 04:31 04:31 WBC 18.0 H RBC Hgb 10.2 L Hct 32.6 L MCV MCH 27 L MCHC 31 L RDW 17.5 H Plt Count 576 H Lymph % (Auto) 8.9 L [place] % (Auto) 9.3 H Lymph # [place] # 1.7 H Baso # Seg Neutrophils % 80.5 H Seg Neuts % (Manual) Lymphocytes % (Manual) Monocytes % (Manual) Seg Neutrophils # 14.5 H Seg Neutrophils # Man Lymphocytes # (Manual) Monocytes # (Manual) Basophils # (Manual) Percent Retic PT INR APTT Heparin Anti-Xa Level < 0.10 L POC ABG pH POC ABG pCO2 POC ABG pO2 Sodium Potassium Chloride Carbon Dioxide BUN Creatinine 0.6 L Glucose POC Glucose Calcium Phosphorus Iron TIBC Lactate Dehydrogenase Total Creatine Kinase NT-Pro-B Natriuret Pep Total Protein Albumin Lauez-4-Endaxacdi Vaqpp-9-Puupsgxfw Beta Globulins PEP Interpretation Cholesterol LDL Cholesterol Direct Vitamin B12 Urine WBC (Auto) Urine Creatinine Crossmatch 05/14/16 05/14/16 05/14/16 05:50 11:47 17:45 WBC RBC Hgb Hct MCV MCH MCHC RDW Plt Count Lymph % (Auto) [place] % (Auto) Lymph # [place] # Baso # Seg Neutrophils % Seg Neuts % (Manual) Lymphocytes % (Manual) Monocytes % (Manual) Seg Neutrophils # Seg Neutrophils # Man Lymphocytes # (Manual) Monocytes # (Manual) Basophils # (Manual) Percent Retic PT INR APTT Heparin Anti-Xa Level POC ABG pH POC ABG pCO2 POC ABG pO2 Sodium Potassium Chloride Carbon Dioxide BUN Creatinine Glucose POC Glucose 136 H 232 H 220 H Calcium Phosphorus Iron TIBC Lactate Dehydrogenase Total Creatine Kinase NT-Pro-B Natriuret Pep Total Protein Albumin Vrtph-0-Zdtnfvjdg Yxbab-2-Gqvvugdzt Beta Globulins PEP Interpretation Cholesterol LDL Cholesterol Direct Vitamin B12 Urine WBC (Auto) Urine Creatinine Crossmatch 05/14/16 05/15/16 05/15/16 22:57 04:37 04:37 WBC 16.4 H RBC 3.54 L Hgb 9.3 L Hct 29.4 L MCV 83 L MCH 26 L MCHC RDW 17.7 H Plt Count 586 H Lymph % (Auto) 6.7 L [place] % (Auto) 8.3 H Lymph # 1.1 L [place] # 1.4 H Baso # Seg Neutrophils % 83.7 H Seg Neuts % (Manual) Lymphocytes % (Manual) Monocytes % (Manual) Seg Neutrophils # 13.7 H Seg Neutrophils # Man Lymphocytes # (Manual) Monocytes # (Manual) Basophils # (Manual) Percent Retic PT INR APTT Heparin Anti-Xa Level POC ABG pH POC ABG pCO2 POC ABG pO2 Sodium Potassium Chloride Carbon Dioxide BUN Creatinine 0.6 L Glucose 220 H POC Glucose 265 H Calcium Phosphorus Iron TIBC Lactate Dehydrogenase Total Creatine Kinase NT-Pro-B Natriuret Pep Total Protein Albumin Qcprn-3-Mnpoonwnf Vtlqb-7-Ujnhjrnri Beta Globulins PEP Interpretation Cholesterol LDL Cholesterol Direct Vitamin B12 Urine WBC (Auto) Urine Creatinine Crossmatch 05/15/16 05/15/16 05/15/16 11:43 17:08 23:47 WBC RBC Hgb Hct MCV MCH MCHC RDW Plt Count Lymph % (Auto) [place] % (Auto) Lymph # [place] # Baso # Seg Neutrophils % Seg Neuts % (Manual) Lymphocytes % (Manual) Monocytes % (Manual) Seg Neutrophils # Seg Neutrophils # Man Lymphocytes # (Manual) Monocytes # (Manual) Basophils # (Manual) Percent Retic PT INR APTT Heparin Anti-Xa Level POC ABG pH POC ABG pCO2 POC ABG pO2 Sodium Potassium Chloride Carbon Dioxide BUN Creatinine Glucose POC Glucose 290 H 180 H 130 H Calcium Phosphorus Iron TIBC Lactate Dehydrogenase Total Creatine Kinase NT-Pro-B Natriuret Pep Total Protein Albumin Vtaxg-8-Lakpikkdi Kqtjd-1-Ewcvjrmgj Beta Globulins PEP Interpretation Cholesterol LDL Cholesterol Direct Vitamin B12 Urine WBC (Auto) Urine Creatinine Crossmatch 05/16/16 05/16/16 05/16/16 04:13 04:13 04:29 WBC 15.4 H RBC 3.61 L Hgb 9.4 L Hct 30.2 L MCV MCH 26 L MCHC 31 L RDW 18.0 H Plt Count 563 H Lymph % (Auto) 9.3 L [place] % (Auto) 10.1 H Lymph # [place] # 1.6 H Baso # Seg Neutrophils % 79.6 H Seg Neuts % (Manual) Lymphocytes % (Manual) Monocytes % (Manual) Seg Neutrophils # 12.3 H Seg Neutrophils # Man Lymphocytes # (Manual) Monocytes # (Manual) Basophils # (Manual) Percent Retic PT INR APTT Heparin Anti-Xa Level POC ABG pH 7.491 H POC ABG pCO2 33.9 L POC ABG pO2 Sodium 147 H Potassium Chloride 108.2 H Carbon Dioxide BUN 21 H Creatinine 0.6 L Glucose 162 H POC Glucose Calcium Phosphorus Iron TIBC Lactate Dehydrogenase Total Creatine Kinase NT-Pro-B Natriuret Pep Total Protein Albumin Xidjr-3-Ocymdwtxj Kuyic-6-Aundsvrcz Beta Globulins PEP Interpretation Cholesterol LDL Cholesterol Direct Vitamin B12 Urine WBC (Auto) Urine Creatinine Crossmatch 05/16/16 05/16/16 05/17/16 11:40 17:54 00:00 WBC RBC Hgb Hct MCV MCH MCHC RDW Plt Count Lymph % (Auto) [place] % (Auto) Lymph # [place] # Baso # Seg Neutrophils % Seg Neuts % (Manual) Lymphocytes % (Manual) Monocytes % (Manual) Seg Neutrophils # Seg Neutrophils # Man Lymphocytes # (Manual) Monocytes # (Manual) Basophils # (Manual) Percent Retic PT INR APTT Heparin Anti-Xa Level POC ABG pH POC ABG pCO2 POC ABG pO2 Sodium Potassium Chloride Carbon Dioxide BUN Creatinine Glucose POC Glucose 197 H 128 H 41 L Calcium Phosphorus Iron TIBC Lactate Dehydrogenase Total Creatine Kinase NT-Pro-B Natriuret Pep Total Protein Albumin Rqnji-7-Dvipnncuz Cfoxn-5-Kgxgkgixz Beta Globulins PEP Interpretation Cholesterol LDL Cholesterol Direct Vitamin B12 Urine WBC (Auto) Urine Creatinine Crossmatch 01/05/17/16 05/17/16 02:29 04:42 04:42 WBC 15.1 H RBC 3.42 L Hgb 9.1 L Hct 28.1 L MCV 82 L MCH 27 L MCHC RDW 18.1 H Plt Count 500 H Lymph % (Auto) 6.4 L [place] % (Auto) 9.3 H Lymph # 1.0 L [place] # 1.4 H Baso # Seg Neutrophils % 83.2 H Seg Neuts % (Manual) Lymphocytes % (Manual) Monocytes % (Manual) Seg Neutrophils # 12.6 H Seg Neutrophils # Man Lymphocytes # (Manual) Monocytes # (Manual) Basophils # (Manual) Percent Retic PT INR APTT Heparin Anti-Xa Level POC ABG pH POC ABG pCO2 POC ABG pO2 Sodium Potassium Chloride 107.7 H Carbon Dioxide BUN Creatinine 0.6 L Glucose 150 H POC Glucose 153 H Calcium 8.3 L Phosphorus Iron TIBC Lactate Dehydrogenase Total Creatine Kinase NT-Pro-B Natriuret Pep Total Protein Albumin Bzzgh-8-Yrhseepyq Osedq-8-Fsmxhtifh Beta Globulins PEP Interpretation Cholesterol LDL Cholesterol Direct Vitamin B12 Urine WBC (Auto) Urine Creatinine Crossmatch 05/17/16 05/17/16 05/17/16 11:02 17:33 23:38 WBC RBC Hgb Hct MCV MCH MCHC RDW Plt Count Lymph % (Auto) [place] % (Auto) Lymph # [place] # Baso # Seg Neutrophils % Seg Neuts % (Manual) Lymphocytes % (Manual) Monocytes % (Manual) Seg Neutrophils # Seg Neutrophils # Man Lymphocytes # (Manual) Monocytes # (Manual) Basophils # (Manual) Percent Retic PT INR APTT Heparin Anti-Xa Level POC ABG pH POC ABG pCO2 POC ABG pO2 Sodium Potassium Chloride Carbon Dioxide BUN Creatinine Glucose POC Glucose 195 H 201 H 135 H Calcium Phosphorus Iron TIBC Lactate Dehydrogenase Total Creatine Kinase NT-Pro-B Natriuret Pep Total Protein Albumin Hbzzm-0-Zcdpjziek Zkiqy-6-Vydrzqcyr Beta Globulins PEP Interpretation Cholesterol LDL Cholesterol Direct Vitamin B12 Urine WBC (Auto) Urine Creatinine Crossmatch 05/18/16 05/18/16 05/18/16 04:08 04:08 06:12 WBC 13.4 H RBC 3.48 L Hgb 9.0 L Hct 28.6 L MCV 82 L MCH 26 L MCHC RDW 18.2 H Plt Count 532 H Lymph % (Auto) 11.4 L [place] % (Auto) 8.8 H Lymph # [place] # 1.2 H Baso # Seg Neutrophils % 77.6 H Seg Neuts % (Manual) Lymphocytes % (Manual) Monocytes % (Manual) Seg Neutrophils # 10.4 H Seg Neutrophils # Man Lymphocytes # (Manual) Monocytes # (Manual) Basophils # (Manual) Percent Retic PT INR APTT Heparin Anti-Xa Level POC ABG pH POC ABG pCO2 POC ABG pO2 Sodium Potassium Chloride Carbon Dioxide BUN 21 H Creatinine 0.5 L Glucose 136 H POC Glucose 157 H Calcium Phosphorus Iron TIBC Lactate Dehydrogenase Total Creatine Kinase NT-Pro-B Natriuret Pep Total Protein Albumin Idaxg-2-Tpgqwptys Uracu-0-Aplinpequ Beta Globulins PEP Interpretation Cholesterol LDL Cholesterol Direct Vitamin B12 Urine WBC (Auto) Urine Creatinine Crossmatch 05/18/16 05/18/16 05/18/16 11:52 17:59 23:33 WBC RBC Hgb Hct MCV MCH MCHC RDW Plt Count Lymph % (Auto) [place] % (Auto) Lymph # [place] # Baso # Seg Neutrophils % Seg Neuts % (Manual) Lymphocytes % (Manual) Monocytes % (Manual) Seg Neutrophils # Seg Neutrophils # Man Lymphocytes # (Manual) Monocytes # (Manual) Basophils # (Manual) Percent Retic PT INR APTT Heparin Anti-Xa Level POC ABG pH POC ABG pCO2 POC ABG pO2 Sodium Potassium Chloride Carbon Dioxide BUN Creatinine Glucose POC Glucose 146 H 130 H 120 H Calcium Phosphorus Iron TIBC Lactate Dehydrogenase Total Creatine Kinase NT-Pro-B Natriuret Pep Total Protein Albumin Hlllb-2-Xckgnolsp Runhb-7-Vaekzmwqu Beta Globulins PEP Interpretation Cholesterol LDL Cholesterol Direct Vitamin B12 Urine WBC (Auto) Urine Creatinine Crossmatch 05/19/16 05/19/16 04:32 04:32 WBC 15.5 H RBC Hgb 10.1 L Hct 31.9 L MCV 81 L MCH 26 L MCHC RDW 17.8 H Plt Count 576 H Lymph % (Auto) 9.4 L [place] % (Auto) 8.5 H Lymph # [place] # 1.3 H Baso # Seg Neutrophils % 80.1 H Seg Neuts % (Manual) Lymphocytes % (Manual) Monocytes % (Manual) Seg Neutrophils # 12.4 H Seg Neutrophils # Man Lymphocytes # (Manual) Monocytes # (Manual) Basophils # (Manual) Percent Retic PT INR APTT Heparin Anti-Xa Level POC ABG pH POC ABG pCO2 POC ABG pO2 Sodium Potassium Chloride Carbon Dioxide BUN Creatinine 0.5 L Glucose 133 H POC Glucose Calcium Phosphorus Iron TIBC Lactate Dehydrogenase Total Creatine Kinase NT-Pro-B Natriuret Pep Total Protein Albumin Giuah-0-Tbwrqwmey Iaeyp-4-Tsinitftu Beta Globulins PEP Interpretation Cholesterol LDL Cholesterol Direct Vitamin B12 Urine WBC (Auto) Urine Creatinine Crossmatch
[2016-05-19] MEDS: PEPCID PO SCH ×2 (09:41→21:26)
[2016-05-19] MEDS: CORDARONE PO SCH (09:41)
[2016-05-19] MEDS: LEVEMIR SUB-Q SCH (09:42)
[2016-05-19] MEDS: KEPPRA PO SCH ×2 (09:42→21:26)
[2016-05-19] MEDS: ZESTRIL PO SCH ×2 (09:42→21:42)
[2016-05-19] MEDS: NORVASC PO SCH (09:42)
[2016-05-19] MEDS: NOVOLOG SUB-Q SCH ×4 (13:05→20:07)
[2016-05-20] MEDS: NOVOLOG SUB-Q SCH ×4 (00:30→18:02)
[2016-05-20] MEDS: DUONEB 0.5 MG-3 MG/3 ML SOLN IH SCH ×4 (01:32→20:38)
[2016-05-20 05:47] LABS: Hematocrit 28.6 % (35.5-45.6); Hemoglobin 9.2 gm/dl (11.8-15.2)
[2016-05-20] MEDS: LEVEMIR SUB-Q SCH (09:24)
[2016-05-20] MEDS: ZESTRIL PO SCH ×2 (09:25→21:19)
[2016-05-20] MEDS: NORVASC PO SCH (09:25)
[2016-05-20] MEDS: KEPPRA PO SCH ×2 (09:25→21:19)
[2016-05-20] MEDS: PEPCID PO SCH ×2 (09:25→21:19)
[2016-05-20] MEDS: NORMODYNE PO SCH ×3 (09:26→21:19)
[2016-05-20] MEDS: CORDARONE PO SCH (09:26)
--- NOTE | 2016-05-20 10:51 | Progress Note ---
Assessment and Plan 61 y/o male with acute encephalopathy, secondary to embolic strokes, now with acute respiratory failure requiring re-intubation. 1. Continue T-piece, trach care. Likely not a candidate for decannulation given her mental state 2. Follow up with CM in regards to funding. Subjective Date of service: 05/20/16 Principal diagnosis: CVA, acute respiratory failure Interval history: No acute events, remains stable on T-piece. Awaiting floor bed Objective Vital Signs - 12hr 05/19/16 05/19/16 05/20/16 23:00 23:14 00:00 Temperature 99.1 F Pulse Rate 79 81 80 Pulse Rate [ Apical] Pulse Rate [ Bilateral] Pulse Rate [ From Monitor] Respiratory 42 H 42 H 36 H Rate Respiratory Rate [Bilateral ] Blood Pressure 99/65 90/57 92/59 O2 Sat by Pulse 91 Oximetry O2 Sat by Pulse Oximetry [ Assessment] 05/20/16 05/20/16 05/20/16 00:52 01:00 01:03 Temperature Pulse Rate 81 84 83 Pulse Rate [ Apical] Pulse Rate [ Bilateral] Pulse Rate [ From Monitor] Respiratory 33 H 32 H 35 H Rate Respiratory Rate [Bilateral ] Blood Pressure 92/59 111/71 111/71 O2 Sat by Pulse 98 96 92 Oximetry O2 Sat by Pulse Oximetry [ Assessment] 05/20/16 05/20/16 05/20/16 01:38 02:00 03:00 Temperature Pulse Rate 82 83 Pulse Rate [ Apical] Pulse Rate [ Bilateral] Pulse Rate [ 83 From Monitor] Respiratory 34 H 30 H 28 H Rate Respiratory Rate [Bilateral ] Blood Pressure 106/66 110/69 O2 Sat by Pulse 96 Oximetry O2 Sat by Pulse Oximetry [ Assessment] 05/20/16 05/20/16 05/20/16 03:53 04:00 05:00 Temperature 97.4 F L Pulse Rate 85 85 Pulse Rate [ Apical] Pulse Rate [ Bilateral] Pulse Rate [ 85 From Monitor] Respiratory 28 H 31 H Rate Respiratory Rate [Bilateral ] Blood Pressure 110/70 116/73 O2 Sat by Pulse 100 Oximetry O2 Sat by Pulse Oximetry [ Assessment] 05/20/16 05/20/16 05/20/16 05:22 06:00 07:00 Temperature Pulse Rate 82 84 88 Pulse Rate [ Apical] Pulse Rate [ Bilateral] Pulse Rate [ From Monitor] Respiratory 27 H 25 H 28 H Rate Respiratory Rate [Bilateral ] Blood Pressure 116/73 119/78 117/76 O2 Sat by Pulse 100 99 Oximetry O2 Sat by Pulse Oximetry [ Assessment] 05/20/16 05/20/16 05/20/16 07:05 07:30 07:32 Temperature Pulse Rate 88 Pulse Rate [ Apical] Pulse Rate [ 89 Bilateral] Pulse Rate [ From Monitor] Respiratory 25 H Rate Respiratory 25 H Rate [Bilateral ] Blood Pressure 117/76 O2 Sat by Pulse 96 88 Oximetry O2 Sat by Pulse Oximetry [ Assessment] 05/20/16 05/20/16 05/20/16 07:33 07:38 07:46 Temperature 98.6 F Pulse Rate Pulse Rate [ Apical] Pulse Rate [ 89 Bilateral] Pulse Rate [ From Monitor] Respiratory Rate Respiratory 24 Rate [Bilateral ] Blood Pressure O2 Sat by Pulse Oximetry O2 Sat by Pulse 99 Oximetry [ Assessment] 05/20/16 05/20/16 05/20/16 08:00 08:51 09:00 Temperature Pulse Rate 95 H 91 H 92 H Pulse Rate [ 88 Apical] Pulse Rate [ Bilateral] Pulse Rate [ 92 H From Monitor] Respiratory 34 H 24 24 Rate Respiratory Rate [Bilateral ] Blood Pressure 132/93 132/93 108/74 O2 Sat by Pulse 97 Oximetry O2 Sat by Pulse Oximetry [ Assessment] 05/20/16 05/20/16 05/20/16 09:25 09:26 10:00 Temperature Pulse Rate 93 H 93 H 88 Pulse Rate [ Apical] Pulse Rate [ Bilateral] Pulse Rate [ From Monitor] Respiratory 28 H Rate Respiratory Rate [Bilateral ] Blood Pressure 108/74 108/74 101/67 O2 Sat by Pulse Oximetry O2 Sat by Pulse Oximetry [ Assessment] Constitutional: no acute distress, other (opens eyes, not following commands for me) Eyes: non-icteric ENT: other (tracheotomy) Neck: supple, other (no bleeding at trach site) Effort: normal Ascultation: Bilateral: clear, rhonchi (occasional), other (coarse BS bilaterally) Percussion: Bilateral: not dull Cardiovascular: regular rate and rhythm, murmur noted Gastrointestinal: normoactive bowel sounds, soft, non-tender Extremities: no cyanosis, no edema Neurologic: other (eyes open, not following commands or moving extremities for me) Psychiatric: other (unable to assess) CBC and BMP: 05/20/16 04:33 05/19/16 04:32 ABG, PT/INR, D-dimer: ABG POC ABG pH 7.491 (7.35-7.45) H 05/16/16 04:29 POC ABG pCO2 33.9 (35-45) L 05/16/16 04:29 POC ABG pO2 88 (80-105) 05/16/16 04:29 POC ABG HCO3 25.9 05/16/16 04:29 POC ABG Total CO2 27 05/16/16 04:29 POC ABG O2 Sat 98 05/16/16 04:29 PT/INR, D-dimer PT 13.8 Sec. (12.2-14.9) 05/12/16 11:01 INR 1.07 (0.87-1.13) 05/12/16 11:01 Abnormal lab findings: Abnormal Labs 03/24/16 03/24/16 03/24/16 17:58 20:25 23:23 WBC RBC Hgb Hct MCV MCH MCHC RDW Plt Count Lymph % (Auto) [place] % (Auto) Lymph # [place] # Baso # Seg Neutrophils % Seg Neuts % (Manual) Lymphocytes % (Manual) Monocytes % (Manual) Seg Neutrophils # Seg Neutrophils # Man Lymphocytes # (Manual) Monocytes # (Manual) Basophils # (Manual) Percent Retic PT INR APTT Heparin Anti-Xa Level POC ABG pH POC ABG pCO2 POC ABG pO2 Sodium 169 H* Potassium 3.5 L Chloride 130.3 H Carbon Dioxide BUN 28 H Creatinine 1.8 H Glucose POC Glucose 112 H Calcium Phosphorus Iron TIBC Lactate Dehydrogenase Total Creatine Kinase NT-Pro-B Natriuret Pep Total Protein Albumin Ucwpt-7-Elpfwjhqw Yfcuy-1-Ohosayqmg Beta Globulins PEP Interpretation Cholesterol 221 H LDL Cholesterol Direct 146 H Vitamin B12 Urine WBC (Auto) Urine Creatinine Crossmatch 03/25/16 03/25/16 03/25/16 05:56 05:56 05:56 WBC 21.3 H RBC 6.32 H Hgb 16.7 H Hct 52.7 H MCV 83 L MCH 27 L MCHC RDW Plt Count Lymph % (Auto) [place] % (Auto) Lymph # [place] # Baso # Seg Neutrophils % Seg Neuts % (Manual) 91.0 H Lymphocytes % (Manual) 4.0 L Monocytes % (Manual) Seg Neutrophils # Seg Neutrophils # Man 19.4 H Lymphocytes # (Manual) 0.9 L Monocytes # (Manual) 0.9 H Basophils # (Manual) Percent Retic PT INR APTT Heparin Anti-Xa Level POC ABG pH POC ABG pCO2 POC ABG pO2 Sodium 172 H* Potassium 3.5 L Chloride 130.4 H Carbon Dioxide BUN 29 H Creatinine 1.8 H Glucose 187 H POC Glucose Calcium Phosphorus Iron TIBC Lactate Dehydrogenase 460 H Total Creatine Kinase NT-Pro-B Natriuret Pep Total Protein Albumin Osxqx-9-Jzarfoudn Cuxvo-0-Nfzeubysf Beta Globulins PEP Interpretation Cholesterol LDL Cholesterol Direct Vitamin B12 Urine WBC (Auto) Urine Creatinine Crossmatch 03/25/16 03/25/16 03/25/16 07:55 12:19 13:00 WBC RBC Hgb Hct MCV MCH MCHC RDW Plt Count Lymph % (Auto) [place] % (Auto) Lymph # [place] # Baso # Seg Neutrophils % Seg Neuts % (Manual) Lymphocytes % (Manual) Monocytes % (Manual) Seg Neutrophils # Seg Neutrophils # Man Lymphocytes # (Manual) Monocytes # (Manual) Basophils # (Manual) Percent Retic PT INR APTT Heparin Anti-Xa Level POC ABG pH POC ABG pCO2 POC ABG pO2 Sodium Potassium Chloride Carbon Dioxide BUN Creatinine Glucose POC Glucose 231 H 314 H Calcium Phosphorus Iron TIBC Lactate Dehydrogenase Total Creatine Kinase NT-Pro-B Natriuret Pep Total Protein Albumin 3.4 L Usmcf-9-Cqornyexf 0.4 H Ugkaq-8-Zolfgombv 1.1 H Beta Globulins 0.6 H PEP Interpretation see below H Cholesterol LDL Cholesterol Direct Vitamin B12 Urine WBC (Auto) Urine Creatinine Crossmatch 03/25/16 03/25/16 03/26/16 16:41 22:45 08:32 WBC RBC Hgb Hct MCV MCH MCHC RDW Plt Count Lymph % (Auto) [place] % (Auto) Lymph # [place] # Baso # Seg Neutrophils % Seg Neuts % (Manual) Lymphocytes % (Manual) Monocytes % (Manual) Seg Neutrophils # Seg Neutrophils # Man Lymphocytes # (Manual) Monocytes # (Manual) Basophils # (Manual) Percent Retic PT INR APTT Heparin Anti-Xa Level POC ABG pH POC ABG pCO2 POC ABG pO2 Sodium Potassium Chloride Carbon Dioxide BUN Creatinine Glucose POC Glucose 444 H 326 H 360 H Calcium Phosphorus Iron TIBC Lactate Dehydrogenase Total Creatine Kinase NT-Pro-B Natriuret Pep Total Protein Albumin Lpsmy-0-Jvlplgjwd Bkqzj-6-Qvhrnseli Beta Globulins PEP Interpretation Cholesterol LDL Cholesterol Direct Vitamin B12 Urine WBC (Auto) Urine Creatinine Crossmatch 03/26/16 03/26/16 03/26/16 12:38 15:33 15:47 WBC RBC Hgb Hct MCV MCH MCHC RDW Plt Count Lymph % (Auto) [place] % (Auto) Lymph # [place] # Baso # Seg Neutrophils % Seg Neuts % (Manual) Lymphocytes % (Manual) Monocytes % (Manual) Seg Neutrophils # Seg Neutrophils # Man Lymphocytes # (Manual) Monocytes # (Manual) Basophils # (Manual) Percent Retic PT INR APTT Heparin Anti-Xa Level POC ABG pH 7.511 H POC ABG pCO2 26.5 L POC ABG pO2 70 L Sodium Potassium Chloride Carbon Dioxide BUN Creatinine Glucose POC Glucose 280 H 174 H Calcium Phosphorus Iron TIBC Lactate Dehydrogenase Total Creatine Kinase NT-Pro-B Natriuret Pep Total Protein Albumin Tpxbj-4-Vhdtovqea Hvuwe-2-Psshheuxu Beta Globulins PEP Interpretation Cholesterol LDL Cholesterol Direct Vitamin B12 Urine WBC (Auto) Urine Creatinine Crossmatch 03/26/16 03/26/16 03/26/16 16:47 16:47 18:51 WBC 14.0 H RBC 5.17 H Hgb Hct MCV MCH 26 L MCHC 31 L RDW Plt Count 139 L Lymph % (Auto) [place] % (Auto) Lymph # [place] # Baso # Seg Neutrophils % Seg Neuts % (Manual) Lymphocytes % (Manual) Monocytes % (Manual) Seg Neutrophils # Seg Neutrophils # Man Lymphocytes # (Manual) Monocytes # (Manual) Basophils # (Manual) Percent Retic PT INR APTT Heparin Anti-Xa Level POC ABG pH POC ABG pCO2 33.9 L POC ABG pO2 150 H Sodium 164 H* Potassium 3.4 L Chloride 128.5 H Carbon Dioxide BUN 30 H Creatinine 2.2 H Glucose 121 H POC Glucose Calcium 8.1 L Phosphorus Iron TIBC Lactate Dehydrogenase Total Creatine Kinase NT-Pro-B Natriuret Pep Total Protein Albumin Errmh-5-Bqultndes Iqfve-6-Zteulmcex Beta Globulins PEP Interpretation Cholesterol LDL Cholesterol Direct Vitamin B12 Urine WBC (Auto) Urine Creatinine Crossmatch 03/27/16 03/27/16 03/27/16 02:19 05:47 06:02 WBC RBC Hgb Hct MCV MCH MCHC RDW Plt Count Lymph % (Auto) [place] % (Auto) Lymph # [place] # Baso # Seg Neutrophils % Seg Neuts % (Manual) Lymphocytes % (Manual) Monocytes % (Manual) Seg Neutrophils # Seg Neutrophils # Man Lymphocytes # (Manual) Monocytes # (Manual) Basophils # (Manual) Percent Retic PT INR APTT Heparin Anti-Xa Level POC ABG pH POC ABG pCO2 27.3 L 30.3 L POC ABG pO2 50 L 112 H Sodium 158 H Potassium Chloride 126.7 H Carbon Dioxide 20 L BUN 25 H Creatinine 1.7 H Glucose POC Glucose Calcium 7.0 L Phosphorus Iron TIBC Lactate Dehydrogenase Total Creatine Kinase NT-Pro-B Natriuret Pep Total Protein Albumin Iyfey-1-Qogegpneu Fsgkr-6-Foqhycygl Beta Globulins PEP Interpretation Cholesterol LDL Cholesterol Direct Vitamin B12 Urine WBC (Auto) Urine Creatinine Crossmatch 03/27/16 03/27/16 03/27/16 07:51 09:20 11:45 WBC 14.2 H RBC Hgb Hct MCV 83 L MCH 27 L MCHC RDW Plt Count 113 L Lymph % (Auto) [place] % (Auto) Lymph # [place] # Baso # Seg Neutrophils % Seg Neuts % (Manual) Lymphocytes % (Manual) Monocytes % (Manual) Seg Neutrophils # Seg Neutrophils # Man Lymphocytes # (Manual) Monocytes # (Manual) Basophils # (Manual) Percent Retic PT INR APTT Heparin Anti-Xa Level POC ABG pH POC ABG pCO2 POC ABG pO2 Sodium Potassium Chloride Carbon Dioxide BUN Creatinine Glucose POC Glucose 124 H 241 H Calcium Phosphorus Iron TIBC Lactate Dehydrogenase Total Creatine Kinase NT-Pro-B Natriuret Pep Total Protein Albumin Zbmef-9-Nakeduhvy Kyfya-6-Deneomvld Beta Globulins PEP Interpretation Cholesterol LDL Cholesterol Direct Vitamin B12 Urine WBC (Auto) Urine Creatinine Crossmatch 03/27/16 03/27/16 03/28/16 16:39 22:03 03:29 WBC RBC Hgb Hct MCV MCH MCHC RDW Plt Count Lymph % (Auto) [place] % (Auto) Lymph # [place] # Baso # Seg Neutrophils % Seg Neuts % (Manual) Lymphocytes % (Manual) Monocytes % (Manual) Seg Neutrophils # Seg Neutrophils # Man Lymphocytes # (Manual) Monocytes # (Manual) Basophils # (Manual) Percent Retic PT INR APTT Heparin Anti-Xa Level POC ABG pH POC ABG pCO2 POC ABG pO2 Sodium Potassium Chloride Carbon Dioxide BUN Creatinine Glucose POC Glucose 266 H 167 H 241 H Calcium Phosphorus Iron TIBC Lactate Dehydrogenase Total Creatine Kinase NT-Pro-B Natriuret Pep Total Protein Albumin Zztkw-4-Jyekrknml Edqxc-1-Aekunfarx Beta Globulins PEP Interpretation Cholesterol LDL Cholesterol Direct Vitamin B12 Urine WBC (Auto) Urine Creatinine Crossmatch 03/28/16 03/28/16 03/28/16 05:00 05:00 05:00 WBC RBC Hgb Hct MCV 83 L MCH 27 L MCHC RDW Plt Count 106 L Lymph % (Auto) [place] % (Auto) 10.1 H Lymph # [place] # 1.0 H Baso # Seg Neutrophils % 75.1 H Seg Neuts % (Manual) Lymphocytes % (Manual) Monocytes % (Manual) Seg Neutrophils # Seg Neutrophils # Man Lymphocytes # (Manual) Monocytes # (Manual) Basophils # (Manual) Percent Retic PT INR APTT Heparin Anti-Xa Level POC ABG pH POC ABG pCO2 POC ABG pO2 Sodium 147 H D Potassium 3.1 L D Chloride 112.3 H Carbon Dioxide 21 L BUN Creatinine Glucose 208 H POC Glucose Calcium 7.0 L Phosphorus 2.2 L Iron TIBC Lactate Dehydrogenase Total Creatine Kinase NT-Pro-B Natriuret Pep Total Protein Albumin Cvvfx-8-Izqrwnhoy Jihba-2-Gtaxohlqi Beta Globulins PEP Interpretation Cholesterol LDL Cholesterol Direct Vitamin B12 Urine WBC (Auto) Urine Creatinine Crossmatch 03/28/16 03/28/16 03/28/16 05:14 08:41 10:56 WBC RBC Hgb Hct MCV MCH MCHC RDW Plt Count Lymph % (Auto) [place] % (Auto) Lymph # [place] # Baso # Seg Neutrophils % Seg Neuts % (Manual) Lymphocytes % (Manual) Monocytes % (Manual) Seg Neutrophils # Seg Neutrophils # Man Lymphocytes # (Manual) Monocytes # (Manual) Basophils # (Manual) Percent Retic PT INR APTT Heparin Anti-Xa Level POC ABG pH 7.457 H POC ABG pCO2 29.7 L 27.7 L POC ABG pO2 Sodium Potassium Chloride Carbon Dioxide BUN Creatinine Glucose POC Glucose 228 H Calcium Phosphorus Iron TIBC Lactate Dehydrogenase Total Creatine Kinase NT-Pro-B Natriuret Pep Total Protein Albumin Sgqnd-8-Gpdruzowx Cytdl-3-Zmjhrinnr Beta Globulins PEP Interpretation Cholesterol LDL Cholesterol Direct Vitamin B12 Urine WBC (Auto) Urine Creatinine Crossmatch 11/27/16 11/27/16 11/27/16 11:37 13:29 16:22 WBC RBC Hgb Hct MCV MCH MCHC RDW Plt Count Lymph % (Auto) [place] % (Auto) Lymph # [place] # Baso # Seg Neutrophils % Seg Neuts % (Manual) Lymphocytes % (Manual) Monocytes % (Manual) Seg Neutrophils # Seg Neutrophils # Man Lymphocytes # (Manual) Monocytes # (Manual) Basophils # (Manual) Percent Retic PT INR APTT Heparin Anti-Xa Level POC ABG pH POC ABG pCO2 POC ABG pO2 Sodium Potassium Chloride Carbon Dioxide BUN Creatinine Glucose POC Glucose 226 H 200 H Calcium Phosphorus Iron TIBC Lactate Dehydrogenase Total Creatine Kinase 356 H NT-Pro-B Natriuret Pep Total Protein Albumin Pdzii-6-Nqtvigryd Eqeez-3-Racsojncw Beta Globulins PEP Interpretation Cholesterol LDL Cholesterol Direct Vitamin B12 Urine WBC (Auto) Urine Creatinine Crossmatch 03/28/16 03/29/16 03/29/16 21:48 04:50 04:50 WBC RBC Hgb 11.5 L Hct 35.3 L MCV 81 L MCH 26 L MCHC RDW Plt Count 97 L Lymph % (Auto) [place] % (Auto) 11.7 H Lymph # [place] # 1.1 H Baso # Seg Neutrophils % Seg Neuts % (Manual) Lymphocytes % (Manual) Monocytes % (Manual) Seg Neutrophils # Seg Neutrophils # Man Lymphocytes # (Manual) Monocytes # (Manual) Basophils # (Manual) Percent Retic PT INR APTT Heparin Anti-Xa Level POC ABG pH POC ABG pCO2 POC ABG pO2 Sodium 136 L D Potassium 3.3 L Chloride Carbon Dioxide 20 L BUN Creatinine Glucose 386 H POC Glucose 188 H Calcium 6.8 L Phosphorus 1.6 L D Iron TIBC Lactate Dehydrogenase Total Creatine Kinase NT-Pro-B Natriuret Pep Total Protein Albumin Yyoqo-1-Kgsbmbtxg Hblns-1-Manwvqmtz Beta Globulins PEP Interpretation Cholesterol LDL Cholesterol Direct Vitamin B12 Urine WBC (Auto) Urine Creatinine Crossmatch 03/29/16 03/29/16 03/29/16 08:10 11:12 16:09 WBC RBC Hgb Hct MCV MCH MCHC RDW Plt Count Lymph % (Auto) [place] % (Auto) Lymph # [place] # Baso # Seg Neutrophils % Seg Neuts % (Manual) Lymphocytes % (Manual) Monocytes % (Manual) Seg Neutrophils # Seg Neutrophils # Man Lymphocytes # (Manual) Monocytes # (Manual) Basophils # (Manual) Percent Retic PT INR APTT Heparin Anti-Xa Level POC ABG pH POC ABG pCO2 POC ABG pO2 Sodium Potassium Chloride Carbon Dioxide BUN Creatinine Glucose POC Glucose 230 H 180 H 46 L Calcium Phosphorus Iron TIBC Lactate Dehydrogenase Total Creatine Kinase NT-Pro-B Natriuret Pep Total Protein Albumin Niooj-6-Arhcdifkf Pncew-6-Eefgctzyl Beta Globulins PEP Interpretation Cholesterol LDL Cholesterol Direct Vitamin B12 Urine WBC (Auto) Urine Creatinine Crossmatch 03/29/16 03/29/16 03/30/16 16:12 18:15 02:53 WBC RBC Hgb Hct MCV MCH MCHC RDW Plt Count Lymph % (Auto) [place] % (Auto) Lymph # [place] # Baso # Seg Neutrophils % Seg Neuts % (Manual) Lymphocytes % (Manual) Monocytes % (Manual) Seg Neutrophils # Seg Neutrophils # Man Lymphocytes # (Manual) Monocytes # (Manual) Basophils # (Manual) Percent Retic PT INR APTT Heparin Anti-Xa Level POC ABG pH POC ABG pCO2 POC ABG pO2 Sodium Potassium Chloride Carbon Dioxide BUN Creatinine Glucose POC Glucose 52 L 118 H 130 H Calcium Phosphorus Iron TIBC Lactate Dehydrogenase Total Creatine Kinase NT-Pro-B Natriuret Pep Total Protein Albumin Isdsq-2-Ymbzuhppv Oudai-5-Yzsturcnt Beta Globulins PEP Interpretation Cholesterol LDL Cholesterol Direct Vitamin B12 Urine WBC (Auto) Urine Creatinine Crossmatch 03/30/16 03/30/16 03/30/16 04:00 04:00 05:29 WBC RBC Hgb Hct MCV 81 L MCH 26 L MCHC RDW Plt Count 116 L Lymph % (Auto) 10.8 L [place] % (Auto) 13.1 H Lymph # 1.0 L [place] # 1.3 H Baso # Seg Neutrophils % 74.2 H Seg Neuts % (Manual) Lymphocytes % (Manual) Monocytes % (Manual) Seg Neutrophils # Seg Neutrophils # Man Lymphocytes # (Manual) Monocytes # (Manual) Basophils # (Manual) Percent Retic PT INR APTT Heparin Anti-Xa Level POC ABG pH 7.522 H POC ABG pCO2 22.7 L POC ABG pO2 137 H Sodium 147 H D Potassium Chloride 115.5 H Carbon Dioxide 20 L BUN Creatinine Glucose 116 H POC Glucose Calcium 7.6 L Phosphorus 2.3 L D Iron TIBC Lactate Dehydrogenase Total Creatine Kinase NT-Pro-B Natriuret Pep Total Protein Albumin Jewpr-4-Hrmmvjytp Phqbs-7-Ifvkvodap Beta Globulins PEP Interpretation Cholesterol LDL Cholesterol Direct Vitamin B12 Urine WBC (Auto) Urine Creatinine Crossmatch 03/30/16 03/30/16 03/30/16 05:47 08:05 08:59 WBC RBC Hgb Hct MCV MCH MCHC RDW Plt Count Lymph % (Auto) [place] % (Auto) Lymph # [place] # Baso # Seg Neutrophils % Seg Neuts % (Manual) Lymphocytes % (Manual) Monocytes % (Manual) Seg Neutrophils # Seg Neutrophils # Man Lymphocytes # (Manual) Monocytes # (Manual) Basophils # (Manual) Percent Retic PT INR APTT Heparin Anti-Xa Level POC ABG pH POC ABG pCO2 26.2 L POC ABG pO2 115 H Sodium Potassium Chloride Carbon Dioxide BUN Creatinine Glucose POC Glucose 138 H 171 H Calcium Phosphorus Iron TIBC Lactate Dehydrogenase Total Creatine Kinase NT-Pro-B Natriuret Pep Total Protein Albumin Qkmkb-5-Movmnacfd Lyurn-3-Gecxzbsek Beta Globulins PEP Interpretation Cholesterol LDL Cholesterol Direct Vitamin B12 Urine WBC (Auto) Urine Creatinine Crossmatch 03/30/16 03/30/16 03/30/16 12:11 12:11 16:39 WBC RBC Hgb Hct MCV MCH MCHC RDW Plt Count Lymph % (Auto) [place] % (Auto) Lymph # [place] # Baso # Seg Neutrophils % Seg Neuts % (Manual) Lymphocytes % (Manual) Monocytes % (Manual) Seg Neutrophils # Seg Neutrophils # Man Lymphocytes # (Manual) Monocytes # (Manual) Basophils # (Manual) Percent Retic PT INR APTT Heparin Anti-Xa Level POC ABG pH 7.476 H POC ABG pCO2 29.0 L POC ABG pO2 Sodium Potassium Chloride Carbon Dioxide BUN Creatinine Glucose POC Glucose 142 H 59 L Calcium Phosphorus Iron TIBC Lactate Dehydrogenase Total Creatine Kinase NT-Pro-B Natriuret Pep Total Protein Albumin Pghdd-0-Znsgvgung Uqmnl-0-Rruutfdym Beta Globulins PEP Interpretation Cholesterol LDL Cholesterol Direct Vitamin B12 Urine WBC (Auto) Urine Creatinine Crossmatch 03/30/16 03/30/16 03/31/16 18:41 21:59 05:02 WBC RBC Hgb Hct MCV MCH MCHC RDW Plt Count Lymph % (Auto) [place] % (Auto) Lymph # [place] # Baso # Seg Neutrophils % Seg Neuts % (Manual) Lymphocytes % (Manual) Monocytes % (Manual) Seg Neutrophils # Seg Neutrophils # Man Lymphocytes # (Manual) Monocytes # (Manual) Basophils # (Manual) Percent Retic PT INR APTT Heparin Anti-Xa Level POC ABG pH 7.519 H POC ABG pCO2 21.8 L POC ABG pO2 142 H Sodium Potassium Chloride Carbon Dioxide BUN Creatinine Glucose POC Glucose 145 H 154 H Calcium Phosphorus Iron TIBC Lactate Dehydrogenase Total Creatine Kinase NT-Pro-B Natriuret Pep Total Protein Albumin Gqdws-2-Uuphjrhhj Ueeol-0-Kkzhgrzyh Beta Globulins PEP Interpretation Cholesterol LDL Cholesterol Direct Vitamin B12 Urine WBC (Auto) Urine Creatinine Crossmatch 03/31/16 03/31/16 03/31/16 05:15 05:15 05:15 WBC 13.4 H RBC 5.21 H Hgb Hct MCV 81 L MCH 26 L MCHC RDW Plt Count Lymph % (Auto) 9.5 L [place] % (Auto) 14.0 H Lymph # [place] # 1.9 H Baso # Seg Neutrophils % 75.0 H Seg Neuts % (Manual) Lymphocytes % (Manual) Monocytes % (Manual) Seg Neutrophils # 10.1 H Seg Neutrophils # Man Lymphocytes # (Manual) Monocytes # (Manual) Basophils # (Manual) Percent Retic PT INR APTT Heparin Anti-Xa Level POC ABG pH POC ABG pCO2 POC ABG pO2 Sodium Potassium Chloride 108.5 H Carbon Dioxide 19 L BUN Creatinine Glucose 188 H POC Glucose Calcium Phosphorus Iron TIBC Lactate Dehydrogenase Total Creatine Kinase NT-Pro-B Natriuret Pep 1089 H Total Protein Albumin Wctra-1-Vuullyoag Vevqi-3-Emghqezef Beta Globulins PEP Interpretation Cholesterol LDL Cholesterol Direct Vitamin B12 Urine WBC (Auto) Urine Creatinine Crossmatch 03/31/16 03/31/16 03/31/16 07:23 11:12 15:20 WBC RBC Hgb Hct MCV MCH MCHC RDW Plt Count Lymph % (Auto) [place] % (Auto) Lymph # [place] # Baso # Seg Neutrophils % Seg Neuts % (Manual) Lymphocytes % (Manual) Monocytes % (Manual) Seg Neutrophils # Seg Neutrophils # Man Lymphocytes # (Manual) Monocytes # (Manual) Basophils # (Manual) Percent Retic PT INR APTT Heparin Anti-Xa Level POC ABG pH POC ABG pCO2 POC ABG pO2 Sodium Potassium Chloride Carbon Dioxide BUN Creatinine Glucose POC Glucose 233 H 228 H 208 H Calcium Phosphorus Iron TIBC Lactate Dehydrogenase Total Creatine Kinase NT-Pro-B Natriuret Pep Total Protein Albumin Hlhyd-2-Yanhlovtf Pxjxq-7-Vvgpfuttw Beta Globulins PEP Interpretation Cholesterol LDL Cholesterol Direct Vitamin B12 Urine WBC (Auto) Urine Creatinine Crossmatch 03/31/16 04/01/16 04/01/16 21:27 04:41 05:35 WBC 12.1 H RBC Hgb Hct MCV 81 L MCH 26 L MCHC RDW Plt Count Lymph % (Auto) 8.5 L [place] % (Auto) 14.0 H Lymph # 1.0 L [place] # 1.7 H Baso # Seg Neutrophils % 76.2 H Seg Neuts % (Manual) Lymphocytes % (Manual) Monocytes % (Manual) Seg Neutrophils # 9.2 H Seg Neutrophils # Man Lymphocytes # (Manual) Monocytes # (Manual) Basophils # (Manual) Percent Retic PT INR APTT Heparin Anti-Xa Level POC ABG pH 7.455 H POC ABG pCO2 31.0 L POC ABG pO2 Sodium Potassium Chloride Carbon Dioxide BUN Creatinine Glucose POC Glucose 162 H Calcium Phosphorus Iron TIBC Lactate Dehydrogenase Total Creatine Kinase NT-Pro-B Natriuret Pep Total Protein Albumin Kkrxy-3-Iuoiadoxi Tmfgb-6-Powuoawsn Beta Globulins PEP Interpretation Cholesterol LDL Cholesterol Direct Vitamin B12 Urine WBC (Auto) Urine Creatinine Crossmatch 04/01/16 04/01/16 04/01/16 05:35 08:44 12:49 WBC RBC Hgb Hct MCV MCH MCHC RDW Plt Count Lymph % (Auto) [place] % (Auto) Lymph # [place] # Baso # Seg Neutrophils % Seg Neuts % (Manual) Lymphocytes % (Manual) Monocytes % (Manual) Seg Neutrophils # Seg Neutrophils # Man Lymphocytes # (Manual) Monocytes # (Manual) Basophils # (Manual) Percent Retic PT INR APTT Heparin Anti-Xa Level POC ABG pH POC ABG pCO2 POC ABG pO2 Sodium Potassium Chloride Carbon Dioxide BUN Creatinine Glucose 256 H POC Glucose 257 H 279 H Calcium 8.0 L Phosphorus Iron TIBC Lactate Dehydrogenase Total Creatine Kinase NT-Pro-B Natriuret Pep 1205 H Total Protein Albumin Mhotk-1-Ucxactaoo Zlrpc-1-Vyfzshhdj Beta Globulins PEP Interpretation Cholesterol LDL Cholesterol Direct Vitamin B12 Urine WBC (Auto) Urine Creatinine Crossmatch 04/01/16 04/02/16 04/02/16 18:12 00:42 04:17 WBC RBC Hgb Hct MCV MCH MCHC RDW Plt Count Lymph % (Auto) [place] % (Auto) Lymph # [place] # Baso # Seg Neutrophils % Seg Neuts % (Manual) Lymphocytes % (Manual) Monocytes % (Manual) Seg Neutrophils # Seg Neutrophils # Man Lymphocytes # (Manual) Monocytes # (Manual) Basophils # (Manual) Percent Retic PT INR APTT Heparin Anti-Xa Level POC ABG pH 7.582 H POC ABG pCO2 26.8 L POC ABG pO2 Sodium Potassium Chloride Carbon Dioxide BUN Creatinine Glucose POC Glucose 168 H 282 H Calcium Phosphorus Iron TIBC Lactate Dehydrogenase Total Creatine Kinase NT-Pro-B Natriuret Pep Total Protein Albumin Lghiq-[id number] Gmnlm-8-[place] Beta Globulins PEP Interpretation Cholesterol LDL Cholesterol Direct Vitamin B12 Urine WBC (Auto) Urine Creatinine Crossmatch 04/02/16 04/02/16 04/02/16 05:00 05:00 06:27 WBC 12.4 H RBC Hgb Hct MCV 81 L MCH 26 L MCHC RDW Plt Count Lymph % (Auto) 6.4 L [place] % (Auto) 13.3 H Lymph # 0.8 L [place] # 1.7 H Baso # Seg Neutrophils % 79.4 H Seg Neuts % (Manual) Lymphocytes % (Manual) Monocytes % (Manual) Seg Neutrophils # 9.9 H Seg Neutrophils # Man Lymphocytes # (Manual) Monocytes # (Manual) Basophils # (Manual) Percent Retic PT INR APTT Heparin Anti-Xa Level POC ABG pH POC ABG pCO2 POC ABG pO2 Sodium 146 H Potassium Chloride Carbon Dioxide BUN Creatinine Glucose 334 H POC Glucose 317 H Calcium 8.0 L Phosphorus Iron TIBC Lactate Dehydrogenase Total Creatine Kinase NT-Pro-B Natriuret Pep Total Protein Albumin Wvbsn-9-Tjtrcqaic Ubnsb-9-Pumftwoch Beta Globulins PEP Interpretation Cholesterol LDL Cholesterol Direct Vitamin B12 Urine WBC (Auto) Urine Creatinine Crossmatch 04/02/16 04/02/16 04/02/16 11:51 13:10 17:24 WBC RBC Hgb Hct MCV MCH MCHC RDW Plt Count Lymph % (Auto) [place] % (Auto) Lymph # [place] # Baso # Seg Neutrophils % Seg Neuts % (Manual) Lymphocytes % (Manual) Monocytes % (Manual) Seg Neutrophils # Seg Neutrophils # Man Lymphocytes # (Manual) Monocytes # (Manual) Basophils # (Manual) Percent Retic PT INR APTT Heparin Anti-Xa Level POC ABG pH 7.518 H POC ABG pCO2 POC ABG pO2 Sodium Potassium Chloride Carbon Dioxide BUN Creatinine Glucose POC Glucose 278 H 195 H Calcium Phosphorus Iron TIBC Lactate Dehydrogenase Total Creatine Kinase NT-Pro-B Natriuret Pep Total Protein Albumin Hwodu-2-Hpkwjengl Zqubo-3-Vpvuloglw Beta Globulins PEP Interpretation Cholesterol LDL Cholesterol Direct Vitamin B12 Urine WBC (Auto) Urine Creatinine Crossmatch 04/03/16 04/03/16 04/03/16 00:18 04:10 04:10 WBC 14.3 H RBC Hgb Hct MCV 81 L MCH 26 L MCHC RDW Plt Count Lymph % (Auto) 9.0 L [place] % (Auto) 10.7 H Lymph # [place] # 1.5 H Baso # 0.2 H Seg Neutrophils % 78.5 H Seg Neuts % (Manual) Lymphocytes % (Manual) Monocytes % (Manual) Seg Neutrophils # 11.3 H Seg Neutrophils # Man Lymphocytes # (Manual) Monocytes # (Manual) Basophils # (Manual) Percent Retic PT INR APTT Heparin Anti-Xa Level POC ABG pH POC ABG pCO2 POC ABG pO2 Sodium 148 H Potassium Chloride 108.1 H Carbon Dioxide BUN 21 H Creatinine Glucose 227 H POC Glucose 144 H Calcium 8.2 L Phosphorus Iron TIBC Lactate Dehydrogenase Total Creatine Kinase NT-Pro-B Natriuret Pep Total Protein Albumin Ccoec-4-Adrvceult Elmeh-1-Nvytgkzcv Beta Globulins PEP Interpretation Cholesterol LDL Cholesterol Direct Vitamin B12 Urine WBC (Auto) Urine Creatinine Crossmatch 04/03/16 04/03/16 04/04/16 11:14 17:10 04:00 WBC 14.5 H RBC Hgb Hct MCV 81 L MCH 26 L MCHC RDW Plt Count Lymph % (Auto) 7.2 L [place] % (Auto) 7.6 H Lymph # 1.0 L [place] # 1.1 H Baso # Seg Neutrophils % 84.5 H Seg Neuts % (Manual) Lymphocytes % (Manual) Monocytes % (Manual) Seg Neutrophils # 12.3 H Seg Neutrophils # Man Lymphocytes # (Manual) Monocytes # (Manual) Basophils # (Manual) Percent Retic PT INR APTT Heparin Anti-Xa Level POC ABG pH POC ABG pCO2 POC ABG pO2 Sodium Potassium Chloride Carbon Dioxide BUN Creatinine Glucose POC Glucose 267 H 212 H Calcium Phosphorus Iron TIBC Lactate Dehydrogenase Total Creatine Kinase NT-Pro-B Natriuret Pep Total Protein Albumin Kznxa-2-Pdeviknvm Wdjxf-2-Nskzytnrw Beta Globulins PEP Interpretation Cholesterol LDL Cholesterol Direct Vitamin B12 Urine WBC (Auto) Urine Creatinine Crossmatch 04/04/16 04/04/16 04/04/16 05:00 09:55 09:55 WBC RBC Hgb 11.5 L Hct MCV MCH MCHC RDW Plt Count Lymph % (Auto) [place] % (Auto) Lymph # [place] # Baso # Seg Neutrophils % Seg Neuts % (Manual) Lymphocytes % (Manual) Monocytes % (Manual) Seg Neutrophils # Seg Neutrophils # Man Lymphocytes # (Manual) Monocytes # (Manual) Basophils # (Manual) Percent Retic PT INR APTT 42.1 H Heparin Anti-Xa Level POC ABG pH POC ABG pCO2 POC ABG pO2 Sodium 146 H Potassium Chloride Carbon Dioxide BUN 22 H Creatinine Glucose 128 H POC Glucose Calcium Phosphorus Iron TIBC Lactate Dehydrogenase Total Creatine Kinase NT-Pro-B Natriuret Pep Total Protein Albumin Fiykf-7-Lazwlgmfd Egubi-9-Ntwbjzyps Beta Globulins PEP Interpretation Cholesterol LDL Cholesterol Direct Vitamin B12 Urine WBC (Auto) Urine Creatinine Crossmatch 04/04/16 04/04/16 04/04/16 11:45 17:49 17:55 WBC RBC Hgb Hct MCV MCH MCHC RDW Plt Count Lymph % (Auto) [place] % (Auto) Lymph # [place] # Baso # Seg Neutrophils % Seg Neuts % (Manual) Lymphocytes % (Manual) Monocytes % (Manual) Seg Neutrophils # Seg Neutrophils # Man Lymphocytes # (Manual) Monocytes # (Manual) Basophils # (Manual) Percent Retic PT INR APTT Heparin Anti-Xa Level 1.19 H POC ABG pH POC ABG pCO2 POC ABG pO2 Sodium Potassium Chloride Carbon Dioxide BUN Creatinine Glucose POC Glucose 231 H 186 H Calcium Phosphorus Iron TIBC Lactate Dehydrogenase Total Creatine Kinase NT-Pro-B Natriuret Pep Total Protein Albumin Fqfyf-4-Tylrnkvgq Qxdhc-9-Acspqqywz Beta Globulins PEP Interpretation Cholesterol LDL Cholesterol Direct Vitamin B12 Urine WBC (Auto) Urine Creatinine Crossmatch 04/05/16 04/05/16 04/05/16 00:35 05:32 05:42 WBC RBC Hgb Hct MCV MCH MCHC RDW Plt Count Lymph % (Auto) [place] % (Auto) Lymph # [place] # Baso # Seg Neutrophils % Seg Neuts % (Manual) Lymphocytes % (Manual) Monocytes % (Manual) Seg Neutrophils # Seg Neutrophils # Man Lymphocytes # (Manual) Monocytes # (Manual) Basophils # (Manual) Percent Retic PT INR APTT Heparin Anti-Xa Level POC ABG pH 7.491 H POC ABG pCO2 POC ABG pO2 Sodium Potassium Chloride Carbon Dioxide BUN Creatinine Glucose POC Glucose 192 H 242 H Calcium Phosphorus Iron TIBC Lactate Dehydrogenase Total Creatine Kinase NT-Pro-B Natriuret Pep Total Protein Albumin Lzdgu-0-Drcybqssz Kpmfx-9-Dpbdnzjnm Beta Globulins PEP Interpretation Cholesterol LDL Cholesterol Direct Vitamin B12 Urine WBC (Auto) Urine Creatinine Crossmatch 04/05/16 04/05/16 04/05/16 06:20 06:20 12:19 WBC 13.9 H RBC Hgb 11.6 L Hct MCV 81 L MCH 26 L MCHC RDW Plt Count Lymph % (Auto) 9.6 L [place] % (Auto) 8.7 H Lymph # [place] # 1.2 H Baso # Seg Neutrophils % 80.9 H Seg Neuts % (Manual) Lymphocytes % (Manual) Monocytes % (Manual) Seg Neutrophils # 11.3 H Seg Neutrophils # Man Lymphocytes # (Manual) Monocytes # (Manual) Basophils # (Manual) Percent Retic PT INR APTT Heparin Anti-Xa Level POC ABG pH POC ABG pCO2 POC ABG pO2 Sodium 148 H Potassium Chloride Carbon Dioxide BUN 23 H Creatinine Glucose 242 H POC Glucose 187 H Calcium Phosphorus Iron TIBC Lactate Dehydrogenase Total Creatine Kinase NT-Pro-B Natriuret Pep Total Protein Albumin Cxukv-7-Zgkpnokqv Ncbxr-6-Krzbretan Beta Globulins PEP Interpretation Cholesterol LDL Cholesterol Direct Vitamin B12 Urine WBC (Auto) Urine Creatinine Crossmatch 04/05/16 04/05/16 04/06/16 17:10 23:45 05:23 WBC 13.0 H RBC Hgb Hct MCV 82 L MCH 26 L MCHC 31 L RDW Plt Count Lymph % (Auto) 6.7 L [place] % (Auto) 8.3 H Lymph # 0.9 L [place] # 1.1 H Baso # Seg Neutrophils % 84.6 H Seg Neuts % (Manual) Lymphocytes % (Manual) Monocytes % (Manual) Seg Neutrophils # 11.0 H Seg Neutrophils # Man Lymphocytes # (Manual) Monocytes # (Manual) Basophils # (Manual) Percent Retic PT INR APTT Heparin Anti-Xa Level POC ABG pH POC ABG pCO2 POC ABG pO2 Sodium Potassium Chloride Carbon Dioxide BUN Creatinine Glucose POC Glucose 169 H 202 H Calcium Phosphorus Iron TIBC Lactate Dehydrogenase Total Creatine Kinase NT-Pro-B Natriuret Pep Total Protein Albumin Xswye-0-Vewytwmki Uaqnj-4-Jhbobvjzw Beta Globulins PEP Interpretation Cholesterol LDL Cholesterol Direct Vitamin B12 Urine WBC (Auto) Urine Creatinine Crossmatch 04/06/16 04/06/16 04/06/16 05:23 05:23 06:11 WBC RBC Hgb Hct MCV MCH MCHC RDW Plt Count Lymph % (Auto) [place] % (Auto) Lymph # [place] # Baso # Seg Neutrophils % Seg Neuts % (Manual) Lymphocytes % (Manual) Monocytes % (Manual) Seg Neutrophils # Seg Neutrophils # Man Lymphocytes # (Manual) Monocytes # (Manual) Basophils # (Manual) Percent Retic PT INR APTT Heparin Anti-Xa Level 0.21 L POC ABG pH POC ABG pCO2 POC ABG pO2 Sodium 153 H Potassium Chloride 111.3 H Carbon Dioxide BUN 22 H Creatinine Glucose 62 L POC Glucose 56 L Calcium Phosphorus Iron TIBC Lactate Dehydrogenase Total Creatine Kinase NT-Pro-B Natriuret Pep Total Protein Albumin Pswqf-6-Phkntkjhn Hdbuw-3-Qknqeuyac Beta Globulins PEP Interpretation Cholesterol LDL Cholesterol Direct Vitamin B12 Urine WBC (Auto) Urine Creatinine Crossmatch 04/06/16 04/06/16 04/06/16 06:52 11:36 14:58 WBC RBC Hgb Hct MCV MCH MCHC RDW Plt Count Lymph % (Auto) [place] % (Auto) Lymph # [place] # Baso # Seg Neutrophils % Seg Neuts % (Manual) Lymphocytes % (Manual) Monocytes % (Manual) Seg Neutrophils # Seg Neutrophils # Man Lymphocytes # (Manual) Monocytes # (Manual) Basophils # (Manual) Percent Retic PT INR APTT Heparin Anti-Xa Level POC ABG pH POC ABG pCO2 POC ABG pO2 Sodium Potassium Chloride Carbon Dioxide BUN Creatinine Glucose POC Glucose 206 H 139 H 147 H Calcium Phosphorus Iron TIBC Lactate Dehydrogenase Total Creatine Kinase NT-Pro-B Natriuret Pep Total Protein Albumin Rywjl-0-Dnfiojvhc Vndsd-6-Dvavlwuux Beta Globulins PEP Interpretation Cholesterol LDL Cholesterol Direct Vitamin B12 Urine WBC (Auto) Urine Creatinine Crossmatch 04/06/16 04/06/16 04/06/16 16:03 21:18 23:53 WBC RBC Hgb Hct MCV MCH MCHC RDW Plt Count Lymph % (Auto) [place] % (Auto) Lymph # [place] # Baso # Seg Neutrophils % Seg Neuts % (Manual) Lymphocytes % (Manual) Monocytes % (Manual) Seg Neutrophils # Seg Neutrophils # Man Lymphocytes # (Manual) Monocytes # (Manual) Basophils # (Manual) Percent Retic PT INR APTT Heparin Anti-Xa Level POC ABG pH POC ABG pCO2 POC ABG pO2 Sodium Potassium Chloride Carbon Dioxide BUN Creatinine Glucose POC Glucose 154 H 293 H 301 H Calcium Phosphorus Iron TIBC Lactate Dehydrogenase Total Creatine Kinase NT-Pro-B Natriuret Pep Total Protein Albumin Gpgrg-6-Lwzehvnld Gwlju-3-Xuduefnqa Beta Globulins PEP Interpretation Cholesterol LDL Cholesterol Direct Vitamin B12 Urine WBC (Auto) Urine Creatinine Crossmatch 04/07/16 04/07/16 04/07/16 02:30 05:11 05:11 WBC 12.5 H RBC Hgb 11.5 L Hct MCV 82 L MCH 26 L MCHC 31 L RDW Plt Count Lymph % (Auto) [place] % (Auto) Lymph # [place] # Baso # Seg Neutrophils % Seg Neuts % (Manual) Lymphocytes % (Manual) Monocytes % (Manual) Seg Neutrophils # Seg Neutrophils # Man Lymphocytes # (Manual) Monocytes # (Manual) Basophils # (Manual) Percent Retic PT INR APTT Heparin Anti-Xa Level 0.11 L POC ABG pH POC ABG pCO2 POC ABG pO2 Sodium 150 H Potassium Chloride 109.5 H Carbon Dioxide BUN 28 H Creatinine Glucose 264 H POC Glucose Calcium Phosphorus Iron TIBC Lactate Dehydrogenase Total Creatine Kinase NT-Pro-B Natriuret Pep Total Protein Albumin Nxahp-4-Fadszpzzd Ratko-0-Yodyhxxgx Beta Globulins PEP Interpretation Cholesterol LDL Cholesterol Direct Vitamin B12 Urine WBC (Auto) Urine Creatinine Crossmatch 04/07/16 04/07/16 04/07/16 06:46 10:18 11:50 WBC RBC Hgb Hct MCV MCH MCHC RDW Plt Count Lymph % (Auto) [place] % (Auto) Lymph # [place] # Baso # Seg Neutrophils % Seg Neuts % (Manual) Lymphocytes % (Manual) Monocytes % (Manual) Seg Neutrophils # Seg Neutrophils # Man Lymphocytes # (Manual) Monocytes # (Manual) Basophils # (Manual) Percent Retic PT 15.1 H INR 1.20 H APTT Heparin Anti-Xa Level POC ABG pH POC ABG pCO2 POC ABG pO2 Sodium Potassium Chloride Carbon Dioxide BUN Creatinine Glucose POC Glucose 259 H 288 H Calcium Phosphorus Iron TIBC Lactate Dehydrogenase Total Creatine Kinase NT-Pro-B Natriuret Pep Total Protein Albumin Plqbq-1-Jmliqwpsg Tqpou-8-Arqomvlmc Beta Globulins PEP Interpretation Cholesterol LDL Cholesterol Direct Vitamin B12 Urine WBC (Auto) Urine Creatinine Crossmatch 04/07/16 04/08/16 04/08/16 17:58 01:25 06:49 WBC RBC Hgb Hct MCV MCH MCHC RDW Plt Count Lymph % (Auto) [place] % (Auto) Lymph # [place] # Baso # Seg Neutrophils % Seg Neuts % (Manual) Lymphocytes % (Manual) Monocytes % (Manual) Seg Neutrophils # Seg Neutrophils # Man Lymphocytes # (Manual) Monocytes # (Manual) Basophils # (Manual) Percent Retic PT INR APTT Heparin Anti-Xa Level POC ABG pH POC ABG pCO2 POC ABG pO2 Sodium 156 H Potassium Chloride 114.7 H Carbon Dioxide BUN 33 H Creatinine Glucose 169 H POC Glucose 330 H 146 H Calcium Phosphorus Iron TIBC Lactate Dehydrogenase Total Creatine Kinase NT-Pro-B Natriuret Pep Total Protein Albumin Tedjy-5-Oxlfqtpdb Odkxw-5-Fccqsdbzt Beta Globulins PEP Interpretation Cholesterol LDL Cholesterol Direct Vitamin B12 Urine WBC (Auto) Urine Creatinine Crossmatch 04/08/16 04/08/16 04/08/16 07:34 10:28 10:28 WBC RBC Hgb Hct MCV MCH MCHC RDW Plt Count Lymph % (Auto) [place] % (Auto) Lymph # [place] # Baso # Seg Neutrophils % Seg Neuts % (Manual) Lymphocytes % (Manual) Monocytes % (Manual) Seg Neutrophils # Seg Neutrophils # Man Lymphocytes # (Manual) Monocytes # (Manual) Basophils # (Manual) Percent Retic PT 15.5 H INR 1.24 H APTT Heparin Anti-Xa Level 0.24 L POC ABG pH POC ABG pCO2 POC ABG pO2 Sodium Potassium Chloride Carbon Dioxide BUN Creatinine Glucose POC Glucose 232 H Calcium Phosphorus Iron TIBC Lactate Dehydrogenase Total Creatine Kinase NT-Pro-B Natriuret Pep Total Protein Albumin Aavde-4-Ohzexuxua Xbudz-9-Makpaimnk Beta Globulins PEP Interpretation Cholesterol LDL Cholesterol Direct Vitamin B12 Urine WBC (Auto) Urine Creatinine Crossmatch 04/08/16 04/08/16 04/09/16 11:36 15:38 00:01 WBC RBC Hgb Hct MCV MCH MCHC RDW Plt Count Lymph % (Auto) [place] % (Auto) Lymph # [place] # Baso # Seg Neutrophils % Seg Neuts % (Manual) Lymphocytes % (Manual) Monocytes % (Manual) Seg Neutrophils # Seg Neutrophils # Man Lymphocytes # (Manual) Monocytes # (Manual) Basophils # (Manual) Percent Retic PT INR APTT Heparin Anti-Xa Level POC ABG pH POC ABG pCO2 POC ABG pO2 Sodium Potassium Chloride Carbon Dioxide BUN Creatinine Glucose POC Glucose 193 H 163 H 180 H Calcium Phosphorus Iron TIBC Lactate Dehydrogenase Total Creatine Kinase NT-Pro-B Natriuret Pep Total Protein Albumin Emunr-1-Kzznrxqdm Uurkv-6-Tkqftftjl Beta Globulins PEP Interpretation Cholesterol LDL Cholesterol Direct Vitamin B12 Urine WBC (Auto) Urine Creatinine Crossmatch 04/09/16 04/09/16 04/09/16 06:17 06:42 06:42 WBC RBC Hgb Hct MCV MCH MCHC RDW Plt Count Lymph % (Auto) [place] % (Auto) Lymph # [place] # Baso # Seg Neutrophils % Seg Neuts % (Manual) Lymphocytes % (Manual) Monocytes % (Manual) Seg Neutrophils # Seg Neutrophils # Man Lymphocytes # (Manual) Monocytes # (Manual) Basophils # (Manual) Percent Retic PT 17.4 H INR 1.43 H APTT Heparin Anti-Xa Level POC ABG pH POC ABG pCO2 POC ABG pO2 Sodium 153 H Potassium Chloride 113.2 H Carbon Dioxide BUN 29 H Creatinine Glucose 301 H POC Glucose 249 H Calcium 8.3 L Phosphorus Iron TIBC Lactate Dehydrogenase Total Creatine Kinase NT-Pro-B Natriuret Pep Total Protein Albumin Hvhye-6-Ildmxvjgh Eaopn-5-Spkgvjekp Beta Globulins PEP Interpretation Cholesterol LDL Cholesterol Direct Vitamin B12 Urine WBC (Auto) Urine Creatinine Crossmatch 04/09/16 04/09/16 04/09/16 07:37 11:26 15:45 WBC RBC Hgb Hct MCV MCH MCHC RDW Plt Count Lymph % (Auto) [place] % (Auto) Lymph # [place] # Baso # Seg Neutrophils % Seg Neuts % (Manual) Lymphocytes % (Manual) Monocytes % (Manual) Seg Neutrophils # Seg Neutrophils # Man Lymphocytes # (Manual) Monocytes # (Manual) Basophils # (Manual) Percent Retic PT INR APTT Heparin Anti-Xa Level POC ABG pH POC ABG pCO2 POC ABG pO2 Sodium Potassium Chloride Carbon Dioxide BUN Creatinine Glucose POC Glucose 283 H 306 H 354 H Calcium Phosphorus Iron TIBC Lactate Dehydrogenase Total Creatine Kinase NT-Pro-B Natriuret Pep Total Protein Albumin Aqsfr-4-Eankzjqdx Cpznv-8-Yjgmlyofa Beta Globulins PEP Interpretation Cholesterol LDL Cholesterol Direct Vitamin B12 Urine WBC (Auto) Urine Creatinine Crossmatch 04/10/16 04/10/16 04/10/16 00:53 07:15 07:34 WBC RBC Hgb 11.3 L Hct MCV MCH MCHC RDW Plt Count Lymph % (Auto) [place] % (Auto) Lymph # [place] # Baso # Seg Neutrophils % Seg Neuts % (Manual) Lymphocytes % (Manual) Monocytes % (Manual) Seg Neutrophils # Seg Neutrophils # Man Lymphocytes # (Manual) Monocytes # (Manual) Basophils # (Manual) Percent Retic PT INR APTT Heparin Anti-Xa Level POC ABG pH POC ABG pCO2 POC ABG pO2 Sodium Potassium Chloride Carbon Dioxide BUN Creatinine Glucose POC Glucose 323 H 311 H Calcium Phosphorus Iron TIBC Lactate Dehydrogenase Total Creatine Kinase NT-Pro-B Natriuret Pep Total Protein Albumin Nwerz-2-Wkgtainlm [place]-5-Bcskprlqt Beta Globulins PEP Interpretation Cholesterol LDL Cholesterol Direct Vitamin B12 Urine WBC (Auto) Urine Creatinine Crossmatch 04/10/16 04/10/16 04/10/16 07:34 07:34 11:25 WBC RBC Hgb Hct MCV MCH MCHC RDW Plt Count Lymph % (Auto) [place] % (Auto) Lymph # [place] # Baso # Seg Neutrophils % Seg Neuts % (Manual) Lymphocytes % (Manual) Monocytes % (Manual) Seg Neutrophils # Seg Neutrophils # Man Lymphocytes # (Manual) Monocytes # (Manual) Basophils # (Manual) Percent Retic PT 17.3 H INR 1.42 H APTT Heparin Anti-Xa Level POC ABG pH POC ABG pCO2 POC ABG pO2 Sodium 158 H Potassium Chloride 118.6 H Carbon Dioxide BUN 30 H Creatinine Glucose 330 H POC Glucose 335 H Calcium 8.3 L Phosphorus Iron TIBC Lactate Dehydrogenase Total Creatine Kinase NT-Pro-B Natriuret Pep Total Protein Albumin Tlrdf-8-Tpnltcnpj Rnndu-2-Jijhpfcpr Beta Globulins PEP Interpretation Cholesterol LDL Cholesterol Direct Vitamin B12 Urine WBC (Auto) Urine Creatinine Crossmatch 04/10/16 04/11/16 04/11/16 16:21 00:29 07:47 WBC RBC Hgb Hct MCV MCH MCHC RDW Plt Count Lymph % (Auto) [place] % (Auto) Lymph # [place] # Baso # Seg Neutrophils % Seg Neuts % (Manual) Lymphocytes % (Manual) Monocytes % (Manual) Seg Neutrophils # Seg Neutrophils # Man Lymphocytes # (Manual) Monocytes # (Manual) Basophils # (Manual) Percent Retic PT 18.4 H INR 1.53 H APTT Heparin Anti-Xa Level POC ABG pH POC ABG pCO2 POC ABG pO2 Sodium Potassium Chloride Carbon Dioxide BUN Creatinine Glucose POC Glucose 230 H 162 H Calcium Phosphorus Iron TIBC Lactate Dehydrogenase Total Creatine Kinase NT-Pro-B Natriuret Pep Total Protein Albumin Jrwhg-6-Pnchbdnfe Jcjbx-8-Canshtgfd Beta Globulins PEP Interpretation Cholesterol LDL Cholesterol Direct Vitamin B12 Urine WBC (Auto) Urine Creatinine Crossmatch 04/11/16 04/11/16 04/12/16 07:47 11:22 04:54 WBC RBC Hgb 11.0 L Hct 35.0 L MCV MCH MCHC RDW Plt Count Lymph % (Auto) [place] % (Auto) Lymph # [place] # Baso # Seg Neutrophils % Seg Neuts % (Manual) Lymphocytes % (Manual) Monocytes % (Manual) Seg Neutrophils # Seg Neutrophils # Man Lymphocytes # (Manual) Monocytes # (Manual) Basophils # (Manual) Percent Retic PT INR APTT Heparin Anti-Xa Level POC ABG pH POC ABG pCO2 POC ABG pO2 Sodium 155 H Potassium Chloride 114.5 H Carbon Dioxide BUN 23 H Creatinine Glucose 157 H POC Glucose 229 H Calcium Phosphorus Iron TIBC Lactate Dehydrogenase Total Creatine Kinase NT-Pro-B Natriuret Pep Total Protein Albumin Gziin-8-Hiqcrkuws Llqal-5-Mjofllayz Beta Globulins PEP Interpretation Cholesterol LDL Cholesterol Direct Vitamin B12 Urine WBC (Auto) Urine Creatinine Crossmatch 04/12/16 04/12/16 04/12/16 04:54 04:54 05:57 WBC RBC Hgb Hct MCV MCH MCHC RDW Plt Count Lymph % (Auto) [place] % (Auto) Lymph # [place] # Baso # Seg Neutrophils % Seg Neuts % (Manual) Lymphocytes % (Manual) Monocytes % (Manual) Seg Neutrophils # Seg Neutrophils # Man Lymphocytes # (Manual) Monocytes # (Manual) Basophils # (Manual) Percent Retic PT 22.5 H INR 1.98 H APTT Heparin Anti-Xa Level 0.19 L POC ABG pH POC ABG pCO2 POC ABG pO2 Sodium 156 H Potassium Chloride 115.4 H Carbon Dioxide BUN 23 H Creatinine Glucose 143 H POC Glucose 194 H Calcium Phosphorus Iron TIBC Lactate Dehydrogenase Total Creatine Kinase NT-Pro-B Natriuret Pep Total Protein Albumin Ttnfi-6-Uumjpxsnx Jsjgr-9-Ftbfvmcsk Beta Globulins PEP Interpretation Cholesterol LDL Cholesterol Direct Vitamin B12 Urine WBC (Auto) Urine Creatinine Crossmatch 04/12/16 04/12/16 04/12/16 12:34 19:01 23:30 WBC RBC Hgb Hct MCV MCH MCHC RDW Plt Count Lymph % (Auto) [place] % (Auto) Lymph # [place] # Baso # Seg Neutrophils % Seg Neuts % (Manual) Lymphocytes % (Manual) Monocytes % (Manual) Seg Neutrophils # Seg Neutrophils # Man Lymphocytes # (Manual) Monocytes # (Manual) Basophils # (Manual) Percent Retic PT INR APTT Heparin Anti-Xa Level POC ABG pH POC ABG pCO2 POC ABG pO2 Sodium Potassium Chloride Carbon Dioxide BUN Creatinine Glucose POC Glucose 291 H 235 H 154 H Calcium Phosphorus Iron TIBC Lactate Dehydrogenase Total Creatine Kinase NT-Pro-B Natriuret Pep Total Protein Albumin Neuir-1-Srmvzzfdh Jwrkn-1-Fllyagoqp Beta Globulins PEP Interpretation Cholesterol LDL Cholesterol Direct Vitamin B12 Urine WBC (Auto) Urine Creatinine Crossmatch 04/13/16 04/13/16 04/13/16 05:16 05:16 05:28 WBC RBC Hgb Hct MCV MCH MCHC RDW Plt Count Lymph % (Auto) [place] % (Auto) Lymph # [place] # Baso # Seg Neutrophils % Seg Neuts % (Manual) Lymphocytes % (Manual) Monocytes % (Manual) Seg Neutrophils # Seg Neutrophils # Man Lymphocytes # (Manual) Monocytes # (Manual) Basophils # (Manual) Percent Retic PT 27.0 H INR 2.49 H APTT Heparin Anti-Xa Level 0.20 L POC ABG pH POC ABG pCO2 POC ABG pO2 Sodium 150 H Potassium Chloride 110.5 H Carbon Dioxide BUN 21 H Creatinine Glucose 159 H POC Glucose 177 H Calcium Phosphorus Iron TIBC Lactate Dehydrogenase Total Creatine Kinase NT-Pro-B Natriuret Pep Total Protein Albumin Yjibp-7-Wkqsspthn Mwuxz-4-Gokgsxxkr Beta Globulins PEP Interpretation Cholesterol LDL Cholesterol Direct Vitamin B12 Urine WBC (Auto) Urine Creatinine Crossmatch 04/13/16 04/13/16 04/14/16 11:30 17:54 00:44 WBC RBC Hgb Hct MCV MCH MCHC RDW Plt Count Lymph % (Auto) [place] % (Auto) Lymph # [place] # Baso # Seg Neutrophils % Seg Neuts % (Manual) Lymphocytes % (Manual) Monocytes % (Manual) Seg Neutrophils # Seg Neutrophils # Man Lymphocytes # (Manual) Monocytes # (Manual) Basophils # (Manual) Percent Retic PT INR APTT Heparin Anti-Xa Level POC ABG pH POC ABG pCO2 POC ABG pO2 Sodium Potassium Chloride Carbon Dioxide BUN Creatinine Glucose POC Glucose 181 H 251 H 237 H Calcium Phosphorus Iron TIBC Lactate Dehydrogenase Total Creatine Kinase NT-Pro-B Natriuret Pep Total Protein Albumin Cnkij-8-Nzaxlljff Wnvby-6-Cvgcleomu Beta Globulins PEP Interpretation Cholesterol LDL Cholesterol Direct Vitamin B12 Urine WBC (Auto) Urine Creatinine Crossmatch 04/14/16 04/14/16 04/14/16 05:00 05:42 05:42 WBC RBC Hgb Hct MCV MCH MCHC RDW Plt Count Lymph % (Auto) [place] % (Auto) Lymph # [place] # Baso # Seg Neutrophils % Seg Neuts % (Manual) Lymphocytes % (Manual) Monocytes % (Manual) Seg Neutrophils # Seg Neutrophils # Man Lymphocytes # (Manual) Monocytes # (Manual) Basophils # (Manual) Percent Retic PT 30.3 H INR 2.88 H APTT Heparin Anti-Xa Level 0.27 L POC ABG pH POC ABG pCO2 POC ABG pO2 Sodium Potassium 3.5 L Chloride Carbon Dioxide BUN Creatinine Glucose 160 H POC Glucose Calcium 8.2 L Phosphorus Iron TIBC Lactate Dehydrogenase Total Creatine Kinase NT-Pro-B Natriuret Pep Total Protein Albumin Amgqb-6-Utfmxawsc Txtdw-1-Xjuiesdcr Beta Globulins PEP Interpretation Cholesterol LDL Cholesterol Direct Vitamin B12 Urine WBC (Auto) Urine Creatinine Crossmatch 04/14/16 04/14/16 04/14/16 06:02 06:16 09:18 WBC 12.3 H RBC Hgb 11.4 L Hct MCV 82 L MCH 26 L MCHC RDW Plt Count Lymph % (Auto) [place] % (Auto) Lymph # [place] # Baso # Seg Neutrophils % Seg Neuts % (Manual) Lymphocytes % (Manual) Monocytes % (Manual) Seg Neutrophils # Seg Neutrophils # Man Lymphocytes # (Manual) Monocytes # (Manual) Basophils # (Manual) Percent Retic PT INR APTT Heparin Anti-Xa Level POC ABG pH POC ABG pCO2 POC ABG pO2 Sodium Potassium Chloride Carbon Dioxide BUN Creatinine Glucose POC Glucose 156 H 164 H Calcium Phosphorus Iron TIBC Lactate Dehydrogenase Total Creatine Kinase NT-Pro-B Natriuret Pep Total Protein Albumin [id number] Beta Globulins PEP Interpretation Cholesterol LDL Cholesterol Direct Vitamin B12 Urine WBC (Auto) Urine Creatinine Crossmatch 04/14/16 04/15/16 04/15/16 13:58 01:07 06:04 WBC RBC Hgb Hct MCV MCH MCHC RDW Plt Count Lymph % (Auto) [place] % (Auto) Lymph # [place] # Baso # Seg Neutrophils % Seg Neuts % (Manual) Lymphocytes % (Manual) Monocytes % (Manual) Seg Neutrophils # Seg Neutrophils # Man Lymphocytes # (Manual) Monocytes # (Manual) Basophils # (Manual) Percent Retic PT 24.9 H INR 2.25 H APTT Heparin Anti-Xa Level POC ABG pH POC ABG pCO2 POC ABG pO2 Sodium Potassium Chloride Carbon Dioxide BUN Creatinine Glucose POC Glucose 109 H 154 H Calcium Phosphorus Iron TIBC Lactate Dehydrogenase Total Creatine Kinase NT-Pro-B Natriuret Pep Total Protein Albumin Qaxao-6-Cszfkphgh Fusuw-0-Iokcxolke Beta Globulins PEP Interpretation Cholesterol LDL Cholesterol Direct Vitamin B12 Urine WBC (Auto) Urine Creatinine Crossmatch 04/15/16 04/15/16 04/16/16 06:08 12:41 00:38 WBC RBC Hgb Hct MCV MCH MCHC RDW Plt Count Lymph % (Auto) [place] % (Auto) Lymph # [place] # Baso # Seg Neutrophils % Seg Neuts % (Manual) Lymphocytes % (Manual) Monocytes % (Manual) Seg Neutrophils # Seg Neutrophils # Man Lymphocytes # (Manual) Monocytes # (Manual) Basophils # (Manual) Percent Retic PT INR APTT Heparin Anti-Xa Level POC ABG pH POC ABG pCO2 POC ABG pO2 Sodium Potassium Chloride Carbon Dioxide BUN Creatinine Glucose POC Glucose 165 H 223 H 216 H Calcium Phosphorus Iron TIBC Lactate Dehydrogenase Total Creatine Kinase NT-Pro-B Natriuret Pep Total Protein Albumin Yvjkk-6-Bksqdywqm Havpx-7-Gqbcbahas Beta Globulins PEP Interpretation Cholesterol LDL Cholesterol Direct Vitamin B12 Urine WBC (Auto) Urine Creatinine Crossmatch 04/16/16 04/16/16 04/16/16 05:45 07:09 14:00 WBC RBC Hgb Hct MCV MCH MCHC RDW Plt Count Lymph % (Auto) [place] % (Auto) Lymph # [place] # Baso # Seg Neutrophils % Seg Neuts % (Manual) Lymphocytes % (Manual) Monocytes % (Manual) Seg Neutrophils # Seg Neutrophils # Man Lymphocytes # (Manual) Monocytes # (Manual) Basophils # (Manual) Percent Retic PT 19.4 H INR 1.64 H APTT Heparin Anti-Xa Level 0.10 L POC ABG pH POC ABG pCO2 POC ABG pO2 Sodium Potassium Chloride Carbon Dioxide BUN Creatinine Glucose POC Glucose 207 H 69 L Calcium Phosphorus Iron TIBC Lactate Dehydrogenase Total Creatine Kinase NT-Pro-B Natriuret Pep Total Protein Albumin Mxzxk-0-Borovnjpo Qlfdv-0-Wedxwrklx Beta Globulins PEP Interpretation Cholesterol LDL Cholesterol Direct Vitamin B12 Urine WBC (Auto) Urine Creatinine Crossmatch 04/16/16 04/16/16 04/16/16 17:40 17:52 19:38 WBC RBC Hgb Hct MCV MCH MCHC RDW Plt Count Lymph % (Auto) [place] % (Auto) Lymph # [place] # Baso # Seg Neutrophils % Seg Neuts % (Manual) Lymphocytes % (Manual) Monocytes % (Manual) Seg Neutrophils # Seg Neutrophils # Man Lymphocytes # (Manual) Monocytes # (Manual) Basophils # (Manual) Percent Retic PT INR APTT Heparin Anti-Xa Level 0.26 L POC ABG pH 7.543 H 7.488 H POC ABG pCO2 26.3 L 30.3 L POC ABG pO2 55 L 203 H Sodium Potassium Chloride Carbon Dioxide BUN Creatinine Glucose POC Glucose Calcium Phosphorus Iron TIBC Lactate Dehydrogenase Total Creatine Kinase NT-Pro-B Natriuret Pep Total Protein Albumin Jvpnl-7-Iqqzmlwnt Cqakk-0-Qjpcobgrn Beta Globulins PEP Interpretation Cholesterol LDL Cholesterol Direct Vitamin B12 Urine WBC (Auto) Urine Creatinine Crossmatch 04/17/16 04/17/16 04/17/16 00:04 05:10 05:36 WBC RBC Hgb Hct MCV MCH MCHC RDW Plt Count Lymph % (Auto) [place] % (Auto) Lymph # [place] # Baso # Seg Neutrophils % Seg Neuts % (Manual) Lymphocytes % (Manual) Monocytes % (Manual) Seg Neutrophils # Seg Neutrophils # Man Lymphocytes # (Manual) Monocytes # (Manual) Basophils # (Manual) Percent Retic PT INR APTT Heparin Anti-Xa Level POC ABG pH POC ABG pCO2 32.7 L POC ABG pO2 68 L Sodium Potassium Chloride Carbon Dioxide BUN Creatinine Glucose POC Glucose 113 H 161 H Calcium Phosphorus Iron TIBC Lactate Dehydrogenase Total Creatine Kinase NT-Pro-B Natriuret Pep Total Protein Albumin Fwioc-1-Akwjudeal Ejfwx-4-Iempuqtfe Beta Globulins PEP Interpretation Cholesterol LDL Cholesterol Direct Vitamin B12 Urine WBC (Auto) Urine Creatinine Crossmatch 04/17/16 04/17/16 04/17/16 05:41 08:37 11:46 WBC RBC Hgb Hct MCV MCH MCHC RDW Plt Count Lymph % (Auto) [place] % (Auto) Lymph # [place] # Baso # Seg Neutrophils % Seg Neuts % (Manual) Lymphocytes % (Manual) Monocytes % (Manual) Seg Neutrophils # Seg Neutrophils # Man Lymphocytes # (Manual) Monocytes # (Manual) Basophils # (Manual) Percent Retic PT 17.4 H INR 1.43 H APTT Heparin Anti-Xa Level POC ABG pH POC ABG pCO2 POC ABG pO2 Sodium Potassium Chloride Carbon Dioxide BUN Creatinine Glucose POC Glucose 154 H 138 H Calcium Phosphorus Iron TIBC Lactate Dehydrogenase Total Creatine Kinase NT-Pro-B Natriuret Pep Total Protein Albumin Kmhbc-7-Zgscyvloe Vnomg-3-Vqxagzwxj Beta Globulins PEP Interpretation Cholesterol LDL Cholesterol Direct Vitamin B12 Urine WBC (Auto) Urine Creatinine Crossmatch 04/17/16 04/17/16 04/17/16 12:17 12:17 21:20 WBC 16.5 H RBC 3.31 L Hgb 8.8 L Hct 26.9 L MCV 81 L MCH 27 L MCHC RDW 15.5 H Plt Count Lymph % (Auto) [place] % (Auto) Lymph # [place] # Baso # Seg Neutrophils % Seg Neuts % (Manual) Lymphocytes % (Manual) 3.0 L Monocytes % (Manual) Seg Neutrophils # Seg Neutrophils # Man 10.1 H Lymphocytes # (Manual) 0.5 L Monocytes # (Manual) Basophils # (Manual) Percent Retic PT INR APTT Heparin Anti-Xa Level 0.14 L POC ABG pH POC ABG pCO2 POC ABG pO2 Sodium Potassium Chloride Carbon Dioxide 21 L BUN 38 H Creatinine 1.8 H D Glucose 131 H POC Glucose Calcium 7.6 L Phosphorus Iron TIBC Lactate Dehydrogenase Total Creatine Kinase NT-Pro-B Natriuret Pep Total Protein Albumin Emkuk-7-Lrejbszes Rhytr-7-Hjqqrqnkn Beta Globulins PEP Interpretation Cholesterol LDL Cholesterol Direct Vitamin B12 Urine WBC (Auto) Urine Creatinine Crossmatch 04/17/16 04/17/16 04/18/16 23:38 23:41 00:21 WBC RBC Hgb Hct MCV MCH MCHC RDW Plt Count Lymph % (Auto) [place] % (Auto) Lymph # [place] # Baso # Seg Neutrophils % Seg Neuts % (Manual) Lymphocytes % (Manual) Monocytes % (Manual) Seg Neutrophils # Seg Neutrophils # Man Lymphocytes # (Manual) Monocytes # (Manual) Basophils # (Manual) Percent Retic PT INR APTT Heparin Anti-Xa Level POC ABG pH POC ABG pCO2 POC ABG pO2 Sodium Potassium Chloride Carbon Dioxide BUN Creatinine Glucose POC Glucose < 40 L < 40 L 223 H Calcium Phosphorus Iron TIBC Lactate Dehydrogenase Total Creatine Kinase NT-Pro-B Natriuret Pep Total Protein Albumin Phays-9-Fgqogrrll Fqaxe-5-Qkpvdnvek Beta Globulins PEP Interpretation Cholesterol LDL Cholesterol Direct Vitamin B12 Urine WBC (Auto) Urine Creatinine Crossmatch 04/18/16 04/18/16 04/18/16 05:01 05:20 05:20 WBC 17.6 H RBC 3.44 L Hgb 9.1 L Hct 27.8 L MCV 81 L MCH 26 L MCHC RDW 15.5 H Plt Count Lymph % (Auto) 2.7 L [place] % (Auto) 8.3 H Lymph # 0.5 L [place] # 1.5 H Baso # Seg Neutrophils % 88.4 H Seg Neuts % (Manual) Lymphocytes % (Manual) Monocytes % (Manual) Seg Neutrophils # 15.6 H Seg Neutrophils # Man Lymphocytes # (Manual) Monocytes # (Manual) Basophils # (Manual) Percent Retic PT 17.4 H INR 1.43 H APTT Heparin Anti-Xa Level POC ABG pH 7.528 H POC ABG pCO2 27.9 L POC ABG pO2 Sodium Potassium Chloride Carbon Dioxide BUN Creatinine Glucose POC Glucose Calcium Phosphorus Iron TIBC Lactate Dehydrogenase Total Creatine Kinase NT-Pro-B Natriuret Pep Total Protein Albumin Vvduj-1-Usnifhppj Wjkyg-5-Eqjbwtqnb Beta Globulins PEP Interpretation Cholesterol LDL Cholesterol Direct Vitamin B12 Urine WBC (Auto) Urine Creatinine Crossmatch 04/18/16 04/18/16 04/18/16 05:20 05:31 06:50 WBC RBC Hgb Hct MCV MCH MCHC RDW Plt Count Lymph % (Auto) [place] % (Auto) Lymph # [place] # Baso # Seg Neutrophils % Seg Neuts % (Manual) Lymphocytes % (Manual) Monocytes % (Manual) Seg Neutrophils # Seg Neutrophils # Man Lymphocytes # (Manual) Monocytes # (Manual) Basophils # (Manual) Percent Retic PT INR APTT Heparin Anti-Xa Level POC ABG pH POC ABG pCO2 POC ABG pO2 Sodium Potassium 3.4 L Chloride Carbon Dioxide 21 L BUN 22 H Creatinine Glucose POC Glucose 61 L 124 H Calcium 8.0 L Phosphorus Iron TIBC Lactate Dehydrogenase Total Creatine Kinase NT-Pro-B Natriuret Pep Total Protein Albumin Lldcb-5-Uhzvnoapy Nrhxz-7-Aqynkwskc Beta Globulins PEP Interpretation Cholesterol LDL Cholesterol Direct Vitamin B12 Urine WBC (Auto) Urine Creatinine Crossmatch 04/18/16 04/18/16 04/19/16 17:42 22:40 00:31 WBC RBC Hgb Hct MCV MCH MCHC RDW Plt Count Lymph % (Auto) [place] % (Auto) Lymph # [place] # Baso # Seg Neutrophils % Seg Neuts % (Manual) Lymphocytes % (Manual) Monocytes % (Manual) Seg Neutrophils # Seg Neutrophils # Man Lymphocytes # (Manual) Monocytes # (Manual) Basophils # (Manual) Percent Retic PT INR APTT Heparin Anti-Xa Level < 0.10 L POC ABG pH POC ABG pCO2 POC ABG pO2 Sodium Potassium Chloride Carbon Dioxide BUN Creatinine Glucose POC Glucose 159 H 134 H Calcium Phosphorus Iron TIBC Lactate Dehydrogenase Total Creatine Kinase NT-Pro-B Natriuret Pep Total Protein Albumin Dcbza-3-Whqbdmnzo Ahpwx-6-Eizjbjdxv Beta Globulins PEP Interpretation Cholesterol LDL Cholesterol Direct Vitamin B12 Urine WBC (Auto) Urine Creatinine Crossmatch 04/19/16 04/19/16 04/19/16 04:18 04:18 04:25 WBC 19.0 H RBC 3.58 L Hgb 9.3 L Hct 28.8 L MCV 80 L MCH 26 L MCHC RDW 15.5 H Plt Count Lymph % (Auto) 2.8 L [place] % (Auto) 7.4 H Lymph # 0.5 L [place] # 1.4 H Baso # Seg Neutrophils % 89.4 H Seg Neuts % (Manual) Lymphocytes % (Manual) Monocytes % (Manual) Seg Neutrophils # 17.0 H Seg Neutrophils # Man Lymphocytes # (Manual) Monocytes # (Manual) Basophils # (Manual) Percent Retic PT INR APTT Heparin Anti-Xa Level POC ABG pH 7.527 H POC ABG pCO2 27.1 L POC ABG pO2 Sodium Potassium Chloride Carbon Dioxide BUN 22 H Creatinine Glucose 215 H POC Glucose Calcium 8.0 L Phosphorus Iron TIBC Lactate Dehydrogenase Total Creatine Kinase NT-Pro-B Natriuret Pep Total Protein Albumin Mzgvm-6-Lkyrxqnga Wwhxn-3-Hlyjatjkv Beta Globulins PEP Interpretation Cholesterol LDL Cholesterol Direct Vitamin B12 Urine WBC (Auto) Urine Creatinine Crossmatch 04/19/16 04/19/16 04/19/16 05:45 08:10 14:08 WBC RBC Hgb Hct MCV MCH MCHC RDW Plt Count Lymph % (Auto) [place] % (Auto) Lymph # [place] # Baso # Seg Neutrophils % Seg Neuts % (Manual) Lymphocytes % (Manual) Monocytes % (Manual) Seg Neutrophils # Seg Neutrophils # Man Lymphocytes # (Manual) Monocytes # (Manual) Basophils # (Manual) Percent Retic PT 22.1 H INR 1.93 H APTT Heparin Anti-Xa Level 0.17 L POC ABG pH POC ABG pCO2 POC ABG pO2 Sodium Potassium Chloride Carbon Dioxide BUN Creatinine Glucose POC Glucose 196 H 318 H Calcium Phosphorus Iron TIBC Lactate Dehydrogenase Total Creatine Kinase NT-Pro-B Natriuret Pep Total Protein Albumin Jbthh-1-Ddxmhnmhy Vhqnc-8-Wkitflgvw Beta Globulins PEP Interpretation Cholesterol LDL Cholesterol Direct Vitamin B12 Urine WBC (Auto) Urine Creatinine Crossmatch 04/19/16 04/20/16 04/20/16 17:27 03:55 03:55 WBC 18.5 H RBC 3.19 L Hgb 8.4 L Hct 25.7 L MCV 80 L MCH 26 L MCHC RDW 15.9 H Plt Count Lymph % (Auto) 4.3 L [place] % (Auto) 10.1 H Lymph # 0.8 L [place] # 1.9 H Baso # Seg Neutrophils % 85.2 H Seg Neuts % (Manual) Lymphocytes % (Manual) Monocytes % (Manual) Seg Neutrophils # 15.8 H Seg Neutrophils # Man Lymphocytes # (Manual) Monocytes # (Manual) Basophils # (Manual) Percent Retic PT 22.0 H INR 1.92 H APTT Heparin Anti-Xa Level 0.14 L POC ABG pH POC ABG pCO2 POC ABG pO2 Sodium Potassium Chloride Carbon Dioxide BUN Creatinine Glucose POC Glucose 230 H Calcium Phosphorus Iron TIBC Lactate Dehydrogenase Total Creatine Kinase NT-Pro-B Natriuret Pep Total Protein Albumin Qpfbl-6-Jtxtphshr Gpitk-6-Tdmqyekrh Beta Globulins PEP Interpretation Cholesterol LDL Cholesterol Direct Vitamin B12 Urine WBC (Auto) Urine Creatinine Crossmatch 04/20/16 04/20/16 04/20/16 03:55 04:16 05:52 WBC RBC Hgb Hct MCV MCH MCHC RDW Plt Count Lymph % (Auto) [place] % (Auto) Lymph # [place] # Baso # Seg Neutrophils % Seg Neuts % (Manual) Lymphocytes % (Manual) Monocytes % (Manual) Seg Neutrophils # Seg Neutrophils # Man Lymphocytes # (Manual) Monocytes # (Manual) Basophils # (Manual) Percent Retic PT INR APTT Heparin Anti-Xa Level POC ABG pH 7.474 H POC ABG pCO2 26.5 L POC ABG pO2 Sodium Potassium Chloride Carbon Dioxide 18 L BUN 38 H Creatinine 2.7 H D Glucose 159 H POC Glucose 214 H Calcium 8.0 L Phosphorus Iron TIBC Lactate Dehydrogenase Total Creatine Kinase NT-Pro-B Natriuret Pep Total Protein Albumin Jpfks-9-Imdmgzmbg Ktzxp-6-Ytfdshrdx Beta Globulins PEP Interpretation Cholesterol LDL Cholesterol Direct Vitamin B12 Urine WBC (Auto) Urine Creatinine Crossmatch 04/20/16 04/20/16 04/20/16 10:32 11:27 11:50 WBC RBC Hgb Hct MCV MCH MCHC RDW Plt Count Lymph % (Auto) [place] % (Auto) Lymph # [place] # Baso # Seg Neutrophils % Seg Neuts % (Manual) Lymphocytes % (Manual) Monocytes % (Manual) Seg Neutrophils # Seg Neutrophils # Man Lymphocytes # (Manual) Monocytes # (Manual) Basophils # (Manual) Percent Retic PT INR APTT Heparin Anti-Xa Level POC ABG pH POC ABG pCO2 POC ABG pO2 Sodium Potassium Chloride Carbon Dioxide 20 L BUN 45 H Creatinine 3.0 H Glucose 215 H POC Glucose 248 H Calcium 8.0 L Phosphorus Iron TIBC Lactate Dehydrogenase Total Creatine Kinase NT-Pro-B Natriuret Pep Total Protein Albumin Gcbyn-1-Vpeebuush Gdbkh-3-Fjbmramlq Beta Globulins PEP Interpretation Cholesterol LDL Cholesterol Direct Vitamin B12 Urine WBC (Auto) Urine Creatinine 85.5 H Crossmatch 04/20/16 04/21/16 04/21/16 16:59 00:13 04:29 WBC RBC Hgb Hct MCV MCH MCHC RDW Plt Count Lymph % (Auto) [place] % (Auto) Lymph # [place] # Baso # Seg Neutrophils % Seg Neuts % (Manual) Lymphocytes % (Manual) Monocytes % (Manual) Seg Neutrophils # Seg Neutrophils # Man Lymphocytes # (Manual) Monocytes # (Manual) Basophils # (Manual) Percent Retic PT 18.1 H INR 1.50 H APTT Heparin Anti-Xa Level 0.10 L POC ABG pH POC ABG pCO2 POC ABG pO2 Sodium Potassium Chloride Carbon Dioxide BUN Creatinine Glucose POC Glucose 312 H 287 H Calcium Phosphorus Iron TIBC Lactate Dehydrogenase Total Creatine Kinase NT-Pro-B Natriuret Pep Total Protein Albumin Puhhr-3-Pfjhdoyfn Cqqbe-3-Kqvkgrpdf Beta Globulins PEP Interpretation Cholesterol LDL Cholesterol Direct Vitamin B12 Urine WBC (Auto) Urine Creatinine Crossmatch 04/21/16 04/21/16 04/21/16 04:29 04:29 04:55 WBC 15.4 H RBC 3.24 L Hgb 8.4 L Hct 25.6 L MCV 79 L MCH 26 L MCHC RDW 16.1 H Plt Count Lymph % (Auto) 6.8 L [place] % (Auto) 12.9 H Lymph # 1.0 L [place] # 2.0 H Baso # Seg Neutrophils % 79.8 H Seg Neuts % (Manual) Lymphocytes % (Manual) Monocytes % (Manual) Seg Neutrophils # 12.3 H Seg Neutrophils # Man Lymphocytes # (Manual) Monocytes # (Manual) Basophils # (Manual) Percent Retic PT INR APTT Heparin Anti-Xa Level POC ABG pH 7.512 H POC ABG pCO2 25.4 L POC ABG pO2 Sodium 135 L Potassium Chloride Carbon Dioxide 18 L BUN 57 H Creatinine 3.9 H Glucose 202 H POC Glucose Calcium 8.0 L Phosphorus Iron TIBC Lactate Dehydrogenase Total Creatine Kinase NT-Pro-B Natriuret Pep Total Protein Albumin Algak-4-Qryvgwsbz Gaakv-4-Buzxmhsmh Beta Globulins PEP Interpretation Cholesterol LDL Cholesterol Direct Vitamin B12 Urine WBC (Auto) Urine Creatinine Crossmatch 04/21/16 04/21/16 04/21/16 05:20 12:08 12:16 WBC RBC Hgb Hct MCV MCH MCHC RDW Plt Count Lymph % (Auto) [place] % (Auto) Lymph # [place] # Baso # Seg Neutrophils % Seg Neuts % (Manual) Lymphocytes % (Manual) Monocytes % (Manual) Seg Neutrophils # Seg Neutrophils # Man Lymphocytes # (Manual) Monocytes # (Manual) Basophils # (Manual) Percent Retic PT INR APTT Heparin Anti-Xa Level 0.16 L POC ABG pH POC ABG pCO2 POC ABG pO2 Sodium Potassium Chloride Carbon Dioxide BUN Creatinine Glucose POC Glucose 203 H 221 H Calcium Phosphorus Iron TIBC Lactate Dehydrogenase Total Creatine Kinase NT-Pro-B Natriuret Pep Total Protein Albumin Pjodo-8-Ulinqqfmg Nfwms-8-Ntbxirbul Beta Globulins PEP Interpretation Cholesterol LDL Cholesterol Direct Vitamin B12 Urine WBC (Auto) Urine Creatinine Crossmatch 04/21/16 04/22/16 04/22/16 17:22 05:01 05:20 WBC RBC Hgb Hct MCV MCH MCHC RDW Plt Count Lymph % (Auto) [place] % (Auto) Lymph # [place] # Baso # Seg Neutrophils % Seg Neuts % (Manual) Lymphocytes % (Manual) Monocytes % (Manual) Seg Neutrophils # Seg Neutrophils # Man Lymphocytes # (Manual) Monocytes # (Manual) Basophils # (Manual) Percent Retic PT 17.5 H INR 1.44 H APTT Heparin Anti-Xa Level POC ABG pH 7.460 H POC ABG pCO2 27.9 L POC ABG pO2 Sodium Potassium Chloride Carbon Dioxide BUN Creatinine Glucose POC Glucose 189 H Calcium Phosphorus Iron TIBC Lactate Dehydrogenase Total Creatine Kinase NT-Pro-B Natriuret Pep Total Protein Albumin Bufou-0-Oxojoxfnm Tbthp-8-Aiwnqugue Beta Globulins PEP Interpretation Cholesterol LDL Cholesterol Direct Vitamin B12 Urine WBC (Auto) Urine Creatinine Crossmatch 04/22/16 04/22/16 04/22/16 05:43 06:40 08:08 WBC RBC Hgb Hct MCV MCH MCHC RDW Plt Count Lymph % (Auto) [place] % (Auto) Lymph # [place] # Baso # Seg Neutrophils % Seg Neuts % (Manual) Lymphocytes % (Manual) Monocytes % (Manual) Seg Neutrophils # Seg Neutrophils # Man Lymphocytes # (Manual) Monocytes # (Manual) Basophils # (Manual) Percent Retic PT INR APTT Heparin Anti-Xa Level POC ABG pH POC ABG pCO2 POC ABG pO2 Sodium Potassium Chloride Carbon Dioxide BUN Creatinine Glucose POC Glucose 56 L 136 H 134 H Calcium Phosphorus Iron TIBC Lactate Dehydrogenase Total Creatine Kinase NT-Pro-B Natriuret Pep Total Protein Albumin Cgasd-8-Ndgbgsnqh Hubfk-7-Hmsxhmqdy Beta Globulins PEP Interpretation Cholesterol LDL Cholesterol Direct Vitamin B12 Urine WBC (Auto) Urine Creatinine Crossmatch 04/22/16 04/22/16 04/22/16 11:18 12:10 18:17 WBC RBC Hgb Hct MCV MCH MCHC RDW Plt Count Lymph % (Auto) [place] % (Auto) Lymph # [place] # Baso # Seg Neutrophils % Seg Neuts % (Manual) Lymphocytes % (Manual) Monocytes % (Manual) Seg Neutrophils # Seg Neutrophils # Man Lymphocytes # (Manual) Monocytes # (Manual) Basophils # (Manual) Percent Retic PT INR APTT Heparin Anti-Xa Level 0.12 L POC ABG pH POC ABG pCO2 POC ABG pO2 Sodium Potassium Chloride Carbon Dioxide BUN Creatinine Glucose POC Glucose 142 H 227 H Calcium Phosphorus Iron TIBC Lactate Dehydrogenase Total Creatine Kinase NT-Pro-B Natriuret Pep Total Protein Albumin Fixdz-3-Tbeoakmln Ddfmc-0-Bmaqwnyda Beta Globulins PEP Interpretation Cholesterol LDL Cholesterol Direct Vitamin B12 Urine WBC (Auto) Urine Creatinine Crossmatch 04/22/16 04/22/16 04/23/16 22:28 23:47 04:49 WBC RBC Hgb Hct MCV MCH MCHC RDW Plt Count Lymph % (Auto) [place] % (Auto) Lymph # [place] # Baso # Seg Neutrophils % Seg Neuts % (Manual) Lymphocytes % (Manual) Monocytes % (Manual) Seg Neutrophils # Seg Neutrophils # Man Lymphocytes # (Manual) Monocytes # (Manual) Basophils # (Manual) Percent Retic PT INR APTT Heparin Anti-Xa Level 0.16 L POC ABG pH POC ABG pCO2 32.6 L POC ABG pO2 122 H Sodium Potassium Chloride Carbon Dioxide BUN Creatinine Glucose POC Glucose 266 H Calcium Phosphorus Iron TIBC Lactate Dehydrogenase Total Creatine Kinase NT-Pro-B Natriuret Pep Total Protein Albumin Qqftj-6-Pgrzjksgz Ssvuc-0-Bwxvypfyd Beta Globulins PEP Interpretation Cholesterol LDL Cholesterol Direct Vitamin B12 Urine WBC (Auto) Urine Creatinine Crossmatch 04/23/16 04/23/16 04/23/16 05:41 08:05 08:34 WBC RBC Hgb Hct MCV MCH MCHC RDW Plt Count Lymph % (Auto) [place] % (Auto) Lymph # [place] # Baso # Seg Neutrophils % Seg Neuts % (Manual) Lymphocytes % (Manual) Monocytes % (Manual) Seg Neutrophils # Seg Neutrophils # Man Lymphocytes # (Manual) Monocytes # (Manual) Basophils # (Manual) Percent Retic PT INR APTT Heparin Anti-Xa Level POC ABG pH POC ABG pCO2 POC ABG pO2 Sodium Potassium Chloride 109.5 H Carbon Dioxide 21 L BUN 23 H Creatinine Glucose 227 H POC Glucose 227 H 224 H Calcium 8.2 L Phosphorus Iron TIBC Lactate Dehydrogenase Total Creatine Kinase NT-Pro-B Natriuret Pep Total Protein Albumin Tbzeo-0-Ihqgobpbx Lzrmg-7-Upuevknod Beta Globulins PEP Interpretation Cholesterol LDL Cholesterol Direct Vitamin B12 Urine WBC (Auto) Urine Creatinine Crossmatch 04/23/16 04/23/16 04/23/16 10:45 11:37 22:49 WBC RBC Hgb Hct MCV MCH MCHC RDW Plt Count Lymph % (Auto) [place] % (Auto) Lymph # [place] # Baso # Seg Neutrophils % Seg Neuts % (Manual) Lymphocytes % (Manual) Monocytes % (Manual) Seg Neutrophils # Seg Neutrophils # Man Lymphocytes # (Manual) Monocytes # (Manual) Basophils # (Manual) Percent Retic PT 15.9 H INR 1.28 H APTT Heparin Anti-Xa Level 0.12 L POC ABG pH POC ABG pCO2 POC ABG pO2 Sodium Potassium Chloride Carbon Dioxide BUN Creatinine Glucose POC Glucose 256 H Calcium Phosphorus Iron TIBC Lactate Dehydrogenase Total Creatine Kinase NT-Pro-B Natriuret Pep Total Protein Albumin Vilds-7-Opuxcecpl Tijlf-6-Stbztqqdu Beta Globulins PEP Interpretation Cholesterol LDL Cholesterol Direct Vitamin B12 Urine WBC (Auto) Urine Creatinine Crossmatch 04/23/16 04/24/16 04/24/16 23:59 05:29 06:03 WBC RBC Hgb Hct MCV MCH MCHC RDW Plt Count Lymph % (Auto) [place] % (Auto) Lymph # [place] # Baso # Seg Neutrophils % Seg Neuts % (Manual) Lymphocytes % (Manual) Monocytes % (Manual) Seg Neutrophils # Seg Neutrophils # Man Lymphocytes # (Manual) Monocytes # (Manual) Basophils # (Manual) Percent Retic PT INR APTT Heparin Anti-Xa Level POC ABG pH 7.464 H POC ABG pCO2 32.4 L POC ABG pO2 115 H Sodium Potassium Chloride Carbon Dioxide BUN Creatinine Glucose POC Glucose 176 H 256 H Calcium Phosphorus Iron TIBC Lactate Dehydrogenase Total Creatine Kinase NT-Pro-B Natriuret Pep Total Protein Albumin Wsdix-7-Hltmewvqd Nqapi-2-Pgsyjmvsl Beta Globulins PEP Interpretation Cholesterol LDL Cholesterol Direct Vitamin B12 Urine WBC (Auto) Urine Creatinine Crossmatch 04/24/16 04/24/16 04/24/16 07:59 12:10 17:17 WBC RBC Hgb Hct MCV MCH MCHC RDW Plt Count Lymph % (Auto) [place] % (Auto) Lymph # [place] # Baso # Seg Neutrophils % Seg Neuts % (Manual) Lymphocytes % (Manual) Monocytes % (Manual) Seg Neutrophils # Seg Neutrophils # Man Lymphocytes # (Manual) Monocytes # (Manual) Basophils # (Manual) Percent Retic PT INR APTT Heparin Anti-Xa Level 0.18 L POC ABG pH POC ABG pCO2 POC ABG pO2 Sodium Potassium Chloride Carbon Dioxide BUN Creatinine Glucose POC Glucose 304 H 325 H Calcium Phosphorus Iron TIBC Lactate Dehydrogenase Total Creatine Kinase NT-Pro-B Natriuret Pep Total Protein Albumin Hyfbv-0-Qcavtnimi Nthbz-1-Whjoocxsb Beta Globulins PEP Interpretation Cholesterol LDL Cholesterol Direct Vitamin B12 Urine WBC (Auto) Urine Creatinine Crossmatch 04/25/16 04/25/16 04/25/16 00:52 06:40 06:44 WBC RBC Hgb Hct MCV MCH MCHC RDW Plt Count Lymph % (Auto) [place] % (Auto) Lymph # [place] # Baso # Seg Neutrophils % Seg Neuts % (Manual) Lymphocytes % (Manual) Monocytes % (Manual) Seg Neutrophils # Seg Neutrophils # Man Lymphocytes # (Manual) Monocytes # (Manual) Basophils # (Manual) Percent Retic PT INR APTT Heparin Anti-Xa Level 0.11 L POC ABG pH POC ABG pCO2 POC ABG pO2 Sodium Potassium Chloride Carbon Dioxide BUN Creatinine Glucose POC Glucose 212 H 184 H Calcium Phosphorus Iron TIBC Lactate Dehydrogenase Total Creatine Kinase NT-Pro-B Natriuret Pep Total Protein Albumin Spbyx-2-Ahyjeidwz Xbrio-3-Whkubqbvr Beta Globulins PEP Interpretation Cholesterol LDL Cholesterol Direct Vitamin B12 Urine WBC (Auto) Urine Creatinine Crossmatch 04/25/16 04/25/16 04/25/16 11:40 13:26 17:27 WBC RBC Hgb Hct MCV MCH MCHC RDW Plt Count Lymph % (Auto) [place] % (Auto) Lymph # [place] # Baso # Seg Neutrophils % Seg Neuts % (Manual) Lymphocytes % (Manual) Monocytes % (Manual) Seg Neutrophils # Seg Neutrophils # Man Lymphocytes # (Manual) Monocytes # (Manual) Basophils # (Manual) Percent Retic PT INR APTT Heparin Anti-Xa Level 0.21 L POC ABG pH POC ABG pCO2 POC ABG pO2 Sodium Potassium Chloride Carbon Dioxide BUN Creatinine Glucose POC Glucose 206 H 204 H Calcium Phosphorus Iron TIBC Lactate Dehydrogenase Total Creatine Kinase NT-Pro-B Natriuret Pep Total Protein Albumin Nekug-4-Ftmrdxqxa Ufcda-9-Nvrkojgbz Beta Globulins PEP Interpretation Cholesterol LDL Cholesterol Direct Vitamin B12 Urine WBC (Auto) Urine Creatinine Crossmatch 04/25/16 04/26/16 04/26/16 23:46 06:31 11:51 WBC RBC Hgb Hct MCV MCH MCHC RDW Plt Count Lymph % (Auto) [place] % (Auto) Lymph # [place] # Baso # Seg Neutrophils % Seg Neuts % (Manual) Lymphocytes % (Manual) Monocytes % (Manual) Seg Neutrophils # Seg Neutrophils # Man Lymphocytes # (Manual) Monocytes # (Manual) Basophils # (Manual) Percent Retic PT INR APTT Heparin Anti-Xa Level POC ABG pH POC ABG pCO2 POC ABG pO2 Sodium Potassium Chloride Carbon Dioxide BUN Creatinine Glucose POC Glucose 162 H 148 H 178 H Calcium Phosphorus Iron TIBC Lactate Dehydrogenase Total Creatine Kinase NT-Pro-B Natriuret Pep Total Protein Albumin Cackc-6-Bazlzdfup Bmlaw-0-Dbfduorfh Beta Globulins PEP Interpretation Cholesterol LDL Cholesterol Direct Vitamin B12 Urine WBC (Auto) Urine Creatinine Crossmatch 04/26/16 04/26/16 04/26/16 12:17 16:16 18:14 WBC RBC Hgb Hct MCV MCH MCHC RDW Plt Count Lymph % (Auto) [place] % (Auto) Lymph # [place] # Baso # Seg Neutrophils % Seg Neuts % (Manual) Lymphocytes % (Manual) Monocytes % (Manual) Seg Neutrophils # Seg Neutrophils # Man Lymphocytes # (Manual) Monocytes # (Manual) Basophils # (Manual) Percent Retic PT INR APTT Heparin Anti-Xa Level POC ABG pH 7.513 H POC ABG pCO2 POC ABG pO2 76 L Sodium Potassium Chloride Carbon Dioxide BUN Creatinine Glucose POC Glucose 186 H 172 H Calcium Phosphorus Iron TIBC Lactate Dehydrogenase Total Creatine Kinase NT-Pro-B Natriuret Pep Total Protein Albumin Bkiop-2-Zxcubjiav Jgwpl-5-Awseaeycf Beta Globulins PEP Interpretation Cholesterol LDL Cholesterol Direct Vitamin B12 Urine WBC (Auto) Urine Creatinine Crossmatch 04/26/16 04/26/16 04/27/16 19:27 23:28 04:21 WBC 13.1 H RBC 2.99 L Hgb 7.8 L Hct 24.0 L MCV 81 L MCH 26 L MCHC RDW 16.7 H Plt Count 486 H Lymph % (Auto) 12.5 L [place] % (Auto) 7.9 H Lymph # [place] # 1.0 H Baso # Seg Neutrophils % 77.5 H Seg Neuts % (Manual) Lymphocytes % (Manual) Monocytes % (Manual) Seg Neutrophils # 10.2 H Seg Neutrophils # Man Lymphocytes # (Manual) Monocytes # (Manual) Basophils # (Manual) Percent Retic PT INR APTT Heparin Anti-Xa Level 0.22 L POC ABG pH POC ABG pCO2 POC ABG pO2 Sodium Potassium Chloride Carbon Dioxide BUN Creatinine Glucose POC Glucose 141 H Calcium Phosphorus Iron TIBC Lactate Dehydrogenase Total Creatine Kinase NT-Pro-B Natriuret Pep Total Protein Albumin Qstei-7-Hzvkzqebr Vbjrl-5-Uqciprvef Beta Globulins PEP Interpretation Cholesterol LDL Cholesterol Direct Vitamin B12 Urine WBC (Auto) Urine Creatinine Crossmatch 04/27/16 04/27/16 04/27/16 04:21 05:46 11:04 WBC RBC Hgb Hct MCV MCH MCHC RDW Plt Count Lymph % (Auto) [place] % (Auto) Lymph # [place] # Baso # Seg Neutrophils % Seg Neuts % (Manual) Lymphocytes % (Manual) Monocytes % (Manual) Seg Neutrophils # Seg Neutrophils # Man Lymphocytes # (Manual) Monocytes # (Manual) Basophils # (Manual) Percent Retic PT INR APTT Heparin Anti-Xa Level POC ABG pH 7.489 H POC ABG pCO2 POC ABG pO2 71 L Sodium Potassium Chloride Carbon Dioxide BUN Creatinine 0.6 L Glucose 187 H POC Glucose 192 H Calcium 8.0 L Phosphorus Iron TIBC Lactate Dehydrogenase Total Creatine Kinase NT-Pro-B Natriuret Pep Total Protein 6.0 L Albumin 2.0 L Ghaim-2-Wssoxbabi Datng-1-Logzwxebg Beta Globulins PEP Interpretation Cholesterol LDL Cholesterol Direct Vitamin B12 Urine WBC (Auto) Urine Creatinine Crossmatch 04/27/16 04/27/16 04/27/16 14:12 21:58 23:38 WBC RBC Hgb Hct MCV MCH MCHC RDW Plt Count Lymph % (Auto) [place] % (Auto) Lymph # [place] # Baso # Seg Neutrophils % Seg Neuts % (Manual) Lymphocytes % (Manual) Monocytes % (Manual) Seg Neutrophils # Seg Neutrophils # Man Lymphocytes # (Manual) Monocytes # (Manual) Basophils # (Manual) Percent Retic PT INR APTT Heparin Anti-Xa Level 0.24 L POC ABG pH POC ABG pCO2 POC ABG pO2 Sodium Potassium Chloride Carbon Dioxide BUN Creatinine Glucose POC Glucose 216 H 181 H Calcium Phosphorus Iron TIBC Lactate Dehydrogenase Total Creatine Kinase NT-Pro-B Natriuret Pep Total Protein Albumin Qroov-2-Pwehwbkvs Duxpz-4-Wjdyrgywb Beta Globulins PEP Interpretation Cholesterol LDL Cholesterol Direct Vitamin B12 Urine WBC (Auto) Urine Creatinine Crossmatch 04/28/16 04/28/16 04/28/16 04:28 05:52 11:31 WBC RBC Hgb Hct MCV MCH MCHC RDW Plt Count Lymph % (Auto) [place] % (Auto) Lymph # [place] # Baso # Seg Neutrophils % Seg Neuts % (Manual) Lymphocytes % (Manual) Monocytes % (Manual) Seg Neutrophils # Seg Neutrophils # Man Lymphocytes # (Manual) Monocytes # (Manual) Basophils # (Manual) Percent Retic PT INR APTT Heparin Anti-Xa Level POC ABG pH 7.524 H POC ABG pCO2 POC ABG pO2 Sodium Potassium Chloride Carbon Dioxide BUN Creatinine Glucose POC Glucose 254 H 280 H Calcium Phosphorus Iron TIBC Lactate Dehydrogenase Total Creatine Kinase NT-Pro-B Natriuret Pep Total Protein Albumin Bzwth-6-Hbsywqhnf Gdwco-7-Kvperlcza Beta Globulins PEP Interpretation Cholesterol LDL Cholesterol Direct Vitamin B12 Urine WBC (Auto) Urine Creatinine Crossmatch 04/28/16 04/28/16 04/29/16 17:30 19:52 00:47 WBC RBC Hgb Hct MCV MCH MCHC RDW Plt Count Lymph % (Auto) [place] % (Auto) Lymph # [place] # Baso # Seg Neutrophils % Seg Neuts % (Manual) Lymphocytes % (Manual) Monocytes % (Manual) Seg Neutrophils # Seg Neutrophils # Man Lymphocytes # (Manual) Monocytes # (Manual) Basophils # (Manual) Percent Retic PT INR APTT Heparin Anti-Xa Level 0.15 L POC ABG pH POC ABG pCO2 POC ABG pO2 Sodium Potassium Chloride Carbon Dioxide BUN Creatinine Glucose POC Glucose 208 H 265 H Calcium Phosphorus Iron TIBC Lactate Dehydrogenase Total Creatine Kinase NT-Pro-B Natriuret Pep Total Protein Albumin Natml-9-Dwdycbohz Wcbap-4-Pdqajaqar Beta Globulins PEP Interpretation Cholesterol LDL Cholesterol Direct Vitamin B12 Urine WBC (Auto) Urine Creatinine Crossmatch 04/29/16 04/29/16 04/29/16 04:00 04:00 04:29 WBC 13.4 H RBC 2.56 L Hgb 6.9 L Hct 20.6 L MCV 81 L MCH 27 L MCHC RDW 16.2 H Plt Count 513 H Lymph % (Auto) 10.0 L [place] % (Auto) 12.0 H Lymph # [place] # 1.6 H Baso # Seg Neutrophils % 77.1 H Seg Neuts % (Manual) Lymphocytes % (Manual) Monocytes % (Manual) Seg Neutrophils # 10.4 H Seg Neutrophils # Man Lymphocytes # (Manual) Monocytes # (Manual) Basophils # (Manual) Percent Retic PT INR APTT Heparin Anti-Xa Level POC ABG pH 7.501 H POC ABG pCO2 POC ABG pO2 76 L Sodium Potassium Chloride Carbon Dioxide BUN 27 H Creatinine Glucose 204 H POC Glucose Calcium 8.1 L Phosphorus Iron TIBC Lactate Dehydrogenase Total Creatine Kinase NT-Pro-B Natriuret Pep Total Protein Albumin Eiqqa-1-Vxgkuyigl Bzeil-7-Zuairqgwa Beta Globulins PEP Interpretation Cholesterol LDL Cholesterol Direct Vitamin B12 Urine WBC (Auto) Urine Creatinine Crossmatch 04/29/16 04/29/16 04/29/16 06:03 10:05 10:16 WBC RBC Hgb Hct MCV MCH MCHC RDW Plt Count Lymph % (Auto) [place] % (Auto) Lymph # [place] # Baso # Seg Neutrophils % Seg Neuts % (Manual) Lymphocytes % (Manual) Monocytes % (Manual) Seg Neutrophils # Seg Neutrophils # Man Lymphocytes # (Manual) Monocytes # (Manual) Basophils # (Manual) Percent Retic 3.68 H PT INR APTT Heparin Anti-Xa Level POC ABG pH POC ABG pCO2 POC ABG pO2 Sodium Potassium Chloride Carbon Dioxide BUN Creatinine Glucose POC Glucose 192 H Calcium Phosphorus Iron TIBC Lactate Dehydrogenase Total Creatine Kinase NT-Pro-B Natriuret Pep Total Protein Albumin Oyuum-3-Edcnjodgj Rvxdc-9-Nrvpaktov Beta Globulins PEP Interpretation Cholesterol LDL Cholesterol Direct Vitamin B12 Urine WBC (Auto) Urine Creatinine Crossmatch See Detail 04/29/16 04/29/16 04/29/16 10:16 10:16 11:23 WBC RBC Hgb Hct MCV MCH MCHC RDW Plt Count Lymph % (Auto) [place] % (Auto) Lymph # [place] # Baso # Seg Neutrophils % Seg Neuts % (Manual) Lymphocytes % (Manual) Monocytes % (Manual) Seg Neutrophils # Seg Neutrophils # Man Lymphocytes # (Manual) Monocytes # (Manual) Basophils # (Manual) Percent Retic PT INR APTT Heparin Anti-Xa Level POC ABG pH POC ABG pCO2 POC ABG pO2 Sodium Potassium Chloride Carbon Dioxide BUN Creatinine Glucose POC Glucose 116 H Calcium Phosphorus Iron 10 L TIBC 138 L Lactate Dehydrogenase 204 H Total Creatine Kinase NT-Pro-B Natriuret Pep Total Protein Albumin Ywgey-8-Jmaelxyyl Rsmet-7-Lxssfbtct Beta Globulins PEP Interpretation Cholesterol LDL Cholesterol Direct Vitamin B12 1005 H Urine WBC (Auto) Urine Creatinine Crossmatch 04/29/16 04/29/16 04/30/16 17:34 23:19 03:19 WBC RBC Hgb 9.0 L Hct 26.7 L D MCV MCH MCHC RDW Plt Count Lymph % (Auto) [place] % (Auto) Lymph # [place] # Baso # Seg Neutrophils % Seg Neuts % (Manual) Lymphocytes % (Manual) Monocytes % (Manual) Seg Neutrophils # Seg Neutrophils # Man Lymphocytes # (Manual) Monocytes # (Manual) Basophils # (Manual) Percent Retic PT INR APTT Heparin Anti-Xa Level POC ABG pH POC ABG pCO2 POC ABG pO2 Sodium Potassium Chloride Carbon Dioxide BUN Creatinine Glucose POC Glucose 142 H 242 H Calcium Phosphorus Iron TIBC Lactate Dehydrogenase Total Creatine Kinase NT-Pro-B Natriuret Pep Total Protein Albumin Cwmfg-7-Nzmmsyhou Aobqv-9-Aufzzqnhi Beta Globulins PEP Interpretation Cholesterol LDL Cholesterol Direct Vitamin B12 Urine WBC (Auto) Urine Creatinine Crossmatch 04/30/16 04/30/16 04/30/16 04:10 04:10 04:32 WBC 13.8 H RBC 3.54 L Hgb 9.3 L Hct 29.1 L MCV 82 L MCH 26 L MCHC RDW 16.5 H Plt Count 535 H Lymph % (Auto) 7.5 L [place] % (Auto) 13.8 H Lymph # 1.0 L [place] # 1.9 H Baso # Seg Neutrophils % 78.0 H Seg Neuts % (Manual) Lymphocytes % (Manual) Monocytes % (Manual) Seg Neutrophils # 10.7 H Seg Neutrophils # Man Lymphocytes # (Manual) Monocytes # (Manual) Basophils # (Manual) Percent Retic PT INR APTT Heparin Anti-Xa Level POC ABG pH 7.519 H POC ABG pCO2 33.6 L POC ABG pO2 79 L Sodium 146 H Potassium Chloride Carbon Dioxide BUN Creatinine 0.7 L Glucose 242 H POC Glucose Calcium 8.3 L Phosphorus Iron TIBC Lactate Dehydrogenase Total Creatine Kinase NT-Pro-B Natriuret Pep Total Protein Albumin Utejf-0-Vjbfeuwbh Nsfrf-2-Lobkkhqcu Beta Globulins PEP Interpretation Cholesterol LDL Cholesterol Direct Vitamin B12 Urine WBC (Auto) Urine Creatinine Crossmatch 04/30/16 04/30/16 04/30/16 05:33 11:23 17:26 WBC RBC Hgb Hct MCV MCH MCHC RDW Plt Count Lymph % (Auto) [place] % (Auto) Lymph # [place] # Baso # Seg Neutrophils % Seg Neuts % (Manual) Lymphocytes % (Manual) Monocytes % (Manual) Seg Neutrophils # Seg Neutrophils # Man Lymphocytes # (Manual) Monocytes # (Manual) Basophils # (Manual) Percent Retic PT INR APTT Heparin Anti-Xa Level POC ABG pH POC ABG pCO2 POC ABG pO2 Sodium Potassium Chloride Carbon Dioxide BUN Creatinine Glucose POC Glucose 242 H 305 H 281 H Calcium Phosphorus Iron TIBC Lactate Dehydrogenase Total Creatine Kinase NT-Pro-B Natriuret Pep Total Protein Albumin Vznkl-2-Owedinphz Krqbz-3-Urzujxjhj Beta Globulins PEP Interpretation Cholesterol LDL Cholesterol Direct Vitamin B12 Urine WBC (Auto) Urine Creatinine Crossmatch 04/30/16 05/01/16 05/01/16 23:53 04:00 04:00 WBC 15.9 H RBC 2.99 L Hgb 7.9 L Hct 24.4 L MCV 82 L MCH 26 L MCHC RDW 16.9 H Plt Count 481 H Lymph % (Auto) 9.3 L [place] % (Auto) 15.0 H Lymph # [place] # 2.4 H Baso # Seg Neutrophils % 74.9 H Seg Neuts % (Manual) Lymphocytes % (Manual) Monocytes % (Manual) Seg Neutrophils # 11.9 H Seg Neutrophils # Man Lymphocytes # (Manual) Monocytes # (Manual) Basophils # (Manual) Percent Retic PT INR APTT Heparin Anti-Xa Level POC ABG pH POC ABG pCO2 POC ABG pO2 Sodium 147 H Potassium Chloride 107.8 H Carbon Dioxide BUN 22 H Creatinine 0.7 L Glucose 229 H POC Glucose 207 H Calcium 8.2 L Phosphorus Iron TIBC Lactate Dehydrogenase Total Creatine Kinase NT-Pro-B Natriuret Pep Total Protein Albumin Axbdl-8-Vxqsvcaek Xgwhj-9-Yagpflaiw Beta Globulins PEP Interpretation Cholesterol LDL Cholesterol Direct Vitamin B12 Urine WBC (Auto) Urine Creatinine Crossmatch 05/01/16 05/01/16 05/01/16 05:12 07:41 12:33 WBC RBC Hgb Hct MCV MCH MCHC RDW Plt Count Lymph % (Auto) [place] % (Auto) Lymph # [place] # Baso # Seg Neutrophils % Seg Neuts % (Manual) Lymphocytes % (Manual) Monocytes % (Manual) Seg Neutrophils # Seg Neutrophils # Man Lymphocytes # (Manual) Monocytes # (Manual) Basophils # (Manual) Percent Retic PT INR APTT Heparin Anti-Xa Level 0.16 L POC ABG pH POC ABG pCO2 POC ABG pO2 Sodium Potassium Chloride Carbon Dioxide BUN Creatinine Glucose POC Glucose 284 H 186 H Calcium Phosphorus Iron TIBC Lactate Dehydrogenase Total Creatine Kinase NT-Pro-B Natriuret Pep Total Protein Albumin Llmrc-4-Lzqouurgr Vblgo-2-Iepkrdnek Beta Globulins PEP Interpretation Cholesterol LDL Cholesterol Direct Vitamin B12 Urine WBC (Auto) Urine Creatinine Crossmatch 05/01/16 05/01/16 05/02/16 17:24 23:19 04:48 WBC 17.2 H RBC 3.09 L Hgb 8.1 L Hct 25.5 L MCV 83 L MCH 26 L MCHC RDW 17.3 H Plt Count 507 H Lymph % (Auto) 8.0 L [place] % (Auto) 13.6 H Lymph # [place] # 2.3 H Baso # Seg Neutrophils % 77.5 H Seg Neuts % (Manual) Lymphocytes % (Manual) Monocytes % (Manual) Seg Neutrophils # 13.4 H Seg Neutrophils # Man Lymphocytes # (Manual) Monocytes # (Manual) Basophils # (Manual) Percent Retic PT INR APTT Heparin Anti-Xa Level POC ABG pH POC ABG pCO2 POC ABG pO2 Sodium Potassium Chloride Carbon Dioxide BUN Creatinine Glucose POC Glucose 171 H 132 H Calcium Phosphorus Iron TIBC Lactate Dehydrogenase Total Creatine Kinase NT-Pro-B Natriuret Pep Total Protein Albumin Fhfzp-7-Qvxywlpaj Yruvy-5-Rxhbzezji Beta Globulins PEP Interpretation Cholesterol LDL Cholesterol Direct Vitamin B12 Urine WBC (Auto) Urine Creatinine Crossmatch 05/02/16 05/02/16 05/02/16 04:48 04:48 05:42 WBC RBC Hgb Hct MCV MCH MCHC RDW Plt Count Lymph % (Auto) [place] % (Auto) Lymph # [place] # Baso # Seg Neutrophils % Seg Neuts % (Manual) Lymphocytes % (Manual) Monocytes % (Manual) Seg Neutrophils # Seg Neutrophils # Man Lymphocytes # (Manual) Monocytes # (Manual) Basophils # (Manual) Percent Retic PT INR APTT Heparin Anti-Xa Level 0.19 L POC ABG pH POC ABG pCO2 POC ABG pO2 Sodium 149 H Potassium Chloride 109.9 H Carbon Dioxide BUN 24 H Creatinine Glucose 224 H POC Glucose 253 H Calcium 8.2 L Phosphorus Iron TIBC Lactate Dehydrogenase Total Creatine Kinase NT-Pro-B Natriuret Pep Total Protein Albumin Vofmu-7-Uncnebrhe Hvzhq-5-Zbhlshlgo Beta Globulins PEP Interpretation Cholesterol LDL Cholesterol Direct Vitamin B12 Urine WBC (Auto) Urine Creatinine Crossmatch 05/02/16 05/02/16 05/02/16 12:01 16:40 23:35 WBC RBC Hgb Hct MCV MCH MCHC RDW Plt Count Lymph % (Auto) [place] % (Auto) Lymph # [place] # Baso # Seg Neutrophils % Seg Neuts % (Manual) Lymphocytes % (Manual) Monocytes % (Manual) Seg Neutrophils # Seg Neutrophils # Man Lymphocytes # (Manual) Monocytes # (Manual) Basophils # (Manual) Percent Retic PT INR APTT Heparin Anti-Xa Level POC ABG pH POC ABG pCO2 POC ABG pO2 Sodium Potassium Chloride Carbon Dioxide BUN Creatinine Glucose POC Glucose 197 H 126 H 303 H Calcium Phosphorus Iron TIBC Lactate Dehydrogenase Total Creatine Kinase NT-Pro-B Natriuret Pep Total Protein Albumin Gbvuq-0-Ixhryvfsx Letld-1-Omjtodxqw Beta Globulins PEP Interpretation Cholesterol LDL Cholesterol Direct Vitamin B12 Urine WBC (Auto) Urine Creatinine Crossmatch 05/03/16 05/03/16 05/03/16 04:31 04:31 04:31 WBC 19.1 H RBC 3.15 L Hgb 8.6 L Hct 25.7 L MCV 82 L MCH MCHC RDW 17.4 H Plt Count 525 H Lymph % (Auto) [place] % (Auto) Lymph # [place] # Baso # Seg Neutrophils % Seg Neuts % (Manual) Lymphocytes % (Manual) 10.0 L Monocytes % (Manual) 13.0 H Seg Neutrophils # Seg Neutrophils # Man 13.2 H Lymphocytes # (Manual) Monocytes # (Manual) 2.5 H Basophils # (Manual) 0.2 H Percent Retic PT INR APTT Heparin Anti-Xa Level 0.16 L POC ABG pH POC ABG pCO2 POC ABG pO2 Sodium 151 H Potassium Chloride 112.9 H Carbon Dioxide BUN 24 H Creatinine 0.7 L Glucose 303 H POC Glucose Calcium Phosphorus Iron TIBC Lactate Dehydrogenase Total Creatine Kinase NT-Pro-B Natriuret Pep Total Protein Albumin Moyrw-7-Dqtomfkwp Yryav-0-Ocoqqtwbi Beta Globulins PEP Interpretation Cholesterol LDL Cholesterol Direct Vitamin B12 Urine WBC (Auto) Urine Creatinine Crossmatch 05/03/16 05/03/16 05/04/16 12:08 18:05 00:11 WBC RBC Hgb Hct MCV MCH MCHC RDW Plt Count Lymph % (Auto) [place] % (Auto) Lymph # [place] # Baso # Seg Neutrophils % Seg Neuts % (Manual) Lymphocytes % (Manual) Monocytes % (Manual) Seg Neutrophils # Seg Neutrophils # Man Lymphocytes # (Manual) Monocytes # (Manual) Basophils # (Manual) Percent Retic PT INR APTT Heparin Anti-Xa Level POC ABG pH POC ABG pCO2 POC ABG pO2 Sodium Potassium Chloride Carbon Dioxide BUN Creatinine Glucose POC Glucose 452 H 370 H 374 H Calcium Phosphorus Iron TIBC Lactate Dehydrogenase Total Creatine Kinase NT-Pro-B Natriuret Pep Total Protein Albumin Hnufz-8-Hdvrzwygv Kywod-9-Ypsoykknj Beta Globulins PEP Interpretation Cholesterol LDL Cholesterol Direct Vitamin B12 Urine WBC (Auto) Urine Creatinine Crossmatch 05/04/16 05/04/16 05/04/16 04:31 04:31 04:31 WBC 19.8 H RBC 2.90 L Hgb 7.8 L Hct 23.8 L MCV 82 L MCH 27 L MCHC RDW 17.9 H Plt Count 504 H Lymph % (Auto) [place] % (Auto) Lymph # [place] # Baso # Seg Neutrophils % Seg Neuts % (Manual) Lymphocytes % (Manual) 11.0 L Monocytes % (Manual) 8.0 H Seg Neutrophils # Seg Neutrophils # Man 13.3 H Lymphocytes # (Manual) Monocytes # (Manual) 1.6 H Basophils # (Manual) Percent Retic PT INR APTT Heparin Anti-Xa Level 0.15 L POC ABG pH POC ABG pCO2 POC ABG pO2 Sodium 146 H Potassium Chloride Carbon Dioxide BUN 30 H Creatinine 0.7 L Glucose 321 H POC Glucose Calcium 8.3 L Phosphorus Iron TIBC Lactate Dehydrogenase Total Creatine Kinase NT-Pro-B Natriuret Pep Total Protein Albumin Ullpt-5-Wlauqopzv Nisrn-1-Ucneshldf Beta Globulins PEP Interpretation Cholesterol LDL Cholesterol Direct Vitamin B12 Urine WBC (Auto) Urine Creatinine Crossmatch 05/04/16 05/04/16 05/04/16 10:20 11:57 17:36 WBC RBC Hgb Hct MCV MCH MCHC RDW Plt Count Lymph % (Auto) [place] % (Auto) Lymph # [place] # Baso # Seg Neutrophils % Seg Neuts % (Manual) Lymphocytes % (Manual) Monocytes % (Manual) Seg Neutrophils # Seg Neutrophils # Man Lymphocytes # (Manual) Monocytes # (Manual) Basophils # (Manual) Percent Retic PT INR APTT Heparin Anti-Xa Level POC ABG pH POC ABG pCO2 POC ABG pO2 Sodium Potassium Chloride Carbon Dioxide BUN Creatinine Glucose POC Glucose 303 H 271 H Calcium Phosphorus Iron TIBC Lactate Dehydrogenase Total Creatine Kinase NT-Pro-B Natriuret Pep Total Protein Albumin Ytltg-5-Tbmpffhyv Ctuoi-4-Engmmskkn Beta Globulins PEP Interpretation Cholesterol LDL Cholesterol Direct Vitamin B12 Urine WBC (Auto) > 182.0 H Urine Creatinine Crossmatch 05/04/16 05/05/16 05/05/16 23:53 04:13 04:13 WBC 20.9 H RBC 2.92 L Hgb 7.6 L Hct 23.9 L MCV 82 L MCH 26 L MCHC RDW 17.9 H Plt Count 526 H Lymph % (Auto) [place] % (Auto) Lymph # [place] # Baso # Seg Neutrophils % Seg Neuts % (Manual) 93.0 H Lymphocytes % (Manual) 2.0 L Monocytes % (Manual) Seg Neutrophils # Seg Neutrophils # Man 19.4 H Lymphocytes # (Manual) 0.4 L Monocytes # (Manual) Basophils # (Manual) Percent Retic PT INR APTT Heparin Anti-Xa Level POC ABG pH POC ABG pCO2 POC ABG pO2 Sodium 146 H Potassium Chloride Carbon Dioxide BUN 30 H Creatinine 0.7 L Glucose 250 H POC Glucose 235 H Calcium 8.1 L Phosphorus Iron TIBC Lactate Dehydrogenase Total Creatine Kinase NT-Pro-B Natriuret Pep Total Protein Albumin Ggesd-6-Ewqwarhlt Mlxww-7-Owggofwig Beta Globulins PEP Interpretation Cholesterol LDL Cholesterol Direct Vitamin B12 Urine WBC (Auto) Urine Creatinine Crossmatch 05/05/16 05/05/16 05/05/16 05:27 07:36 12:06 WBC RBC Hgb Hct MCV MCH MCHC RDW Plt Count Lymph % (Auto) [place] % (Auto) Lymph # [place] # Baso # Seg Neutrophils % Seg Neuts % (Manual) Lymphocytes % (Manual) Monocytes % (Manual) Seg Neutrophils # Seg Neutrophils # Man Lymphocytes # (Manual) Monocytes # (Manual) Basophils # (Manual) Percent Retic PT INR APTT Heparin Anti-Xa Level < 0.10 L POC ABG pH POC ABG pCO2 POC ABG pO2 Sodium Potassium Chloride Carbon Dioxide BUN Creatinine Glucose POC Glucose 287 H 301 H Calcium Phosphorus Iron TIBC Lactate Dehydrogenase Total Creatine Kinase NT-Pro-B Natriuret Pep Total Protein Albumin Kgfaj-1-Pkccxxofj Hrjon-2-Aszcgndep Beta Globulins PEP Interpretation Cholesterol LDL Cholesterol Direct Vitamin B12 Urine WBC (Auto) Urine Creatinine Crossmatch 05/05/16 05/05/16 05/06/16 15:58 17:30 00:10 WBC RBC Hgb Hct MCV MCH MCHC RDW Plt Count Lymph % (Auto) [place] % (Auto) Lymph # [place] # Baso # Seg Neutrophils % Seg Neuts % (Manual) Lymphocytes % (Manual) Monocytes % (Manual) Seg Neutrophils # Seg Neutrophils # Man Lymphocytes # (Manual) Monocytes # (Manual) Basophils # (Manual) Percent Retic PT INR APTT Heparin Anti-Xa Level 0.17 L POC ABG pH POC ABG pCO2 POC ABG pO2 Sodium Potassium Chloride Carbon Dioxide BUN Creatinine Glucose POC Glucose 226 H 161 H Calcium Phosphorus Iron TIBC Lactate Dehydrogenase Total Creatine Kinase NT-Pro-B Natriuret Pep Total Protein Albumin Uwukt-4-Khlnebwsz Ymamz-4-Utnikgyqx Beta Globulins PEP Interpretation Cholesterol LDL Cholesterol Direct Vitamin B12 Urine WBC (Auto) Urine Creatinine Crossmatch 05/06/16 05/06/16 05/06/16 04:23 05:30 05:37 WBC RBC Hgb Hct MCV MCH MCHC RDW Plt Count Lymph % (Auto) [place] % (Auto) Lymph # [place] # Baso # Seg Neutrophils % Seg Neuts % (Manual) Lymphocytes % (Manual) Monocytes % (Manual) Seg Neutrophils # Seg Neutrophils # Man Lymphocytes # (Manual) Monocytes # (Manual) Basophils # (Manual) Percent Retic PT INR APTT Heparin Anti-Xa Level 0.15 L POC ABG pH 7.511 H POC ABG pCO2 POC ABG pO2 Sodium Potassium Chloride Carbon Dioxide BUN Creatinine Glucose POC Glucose 168 H Calcium Phosphorus Iron TIBC Lactate Dehydrogenase Total Creatine Kinase NT-Pro-B Natriuret Pep Total Protein Albumin Gxvyo-8-Lzeecapwt Nhspv-4-Eikpqqfqb Beta Globulins PEP Interpretation Cholesterol LDL Cholesterol Direct Vitamin B12 Urine WBC (Auto) Urine Creatinine Crossmatch 05/06/16 05/06/16 05/07/16 12:48 17:22 00:04 WBC RBC Hgb Hct MCV MCH MCHC RDW Plt Count Lymph % (Auto) [place] % (Auto) Lymph # [place] # Baso # Seg Neutrophils % Seg Neuts % (Manual) Lymphocytes % (Manual) Monocytes % (Manual) Seg Neutrophils # Seg Neutrophils # Man Lymphocytes # (Manual) Monocytes # (Manual) Basophils # (Manual) Percent Retic PT INR APTT Heparin Anti-Xa Level POC ABG pH POC ABG pCO2 POC ABG pO2 Sodium Potassium Chloride Carbon Dioxide BUN Creatinine Glucose POC Glucose 206 H 160 H 164 H Calcium Phosphorus Iron TIBC Lactate Dehydrogenase Total Creatine Kinase NT-Pro-B Natriuret Pep Total Protein Albumin Fcnyy-8-Lqbxakdtn Pjiqv-3-Ayitjyacv Beta Globulins PEP Interpretation Cholesterol LDL Cholesterol Direct Vitamin B12 Urine WBC (Auto) Urine Creatinine Crossmatch 05/07/16 05/07/16 05/07/16 04:02 05:50 11:30 WBC RBC Hgb Hct MCV MCH MCHC RDW Plt Count Lymph % (Auto) [place] % (Auto) Lymph # [place] # Baso # Seg Neutrophils % Seg Neuts % (Manual) Lymphocytes % (Manual) Monocytes % (Manual) Seg Neutrophils # Seg Neutrophils # Man Lymphocytes # (Manual) Monocytes # (Manual) Basophils # (Manual) Percent Retic PT INR APTT Heparin Anti-Xa Level 0.15 L POC ABG pH POC ABG pCO2 POC ABG pO2 Sodium Potassium Chloride Carbon Dioxide BUN Creatinine Glucose POC Glucose 177 H 240 H Calcium Phosphorus Iron TIBC Lactate Dehydrogenase Total Creatine Kinase NT-Pro-B Natriuret Pep Total Protein Albumin Yvoga-4-Poxmoljvr Xpoyg-5-[place] Beta Globulins PEP Interpretation Cholesterol LDL Cholesterol Direct Vitamin B12 Urine WBC (Auto) Urine Creatinine Crossmatch 05/07/16 05/07/16 05/07/16 12:46 17:57 23:54 WBC 20.8 H RBC 2.86 L Hgb 7.6 L Hct 23.3 L MCV 81 L MCH 26 L MCHC RDW 17.9 H Plt Count 559 H Lymph % (Auto) [place] % (Auto) Lymph # [place] # Baso # Seg Neutrophils % Seg Neuts % (Manual) Lymphocytes % (Manual) Monocytes % (Manual) Seg Neutrophils # Seg Neutrophils # Man Lymphocytes # (Manual) Monocytes # (Manual) Basophils # (Manual) Percent Retic PT INR APTT Heparin Anti-Xa Level POC ABG pH POC ABG pCO2 POC ABG pO2 Sodium Potassium Chloride Carbon Dioxide BUN Creatinine Glucose POC Glucose 279 H 201 H Calcium Phosphorus Iron TIBC Lactate Dehydrogenase Total Creatine Kinase NT-Pro-B Natriuret Pep Total Protein Albumin Zcvmp-4-Jgslzarzi Dnaif-2-Uiehewgie Beta Globulins PEP Interpretation Cholesterol LDL Cholesterol Direct Vitamin B12 Urine WBC (Auto) Urine Creatinine Crossmatch 05/08/16 05/08/16 05/08/16 04:04 05:39 12:09 WBC RBC Hgb Hct MCV MCH MCHC RDW Plt Count Lymph % (Auto) [place] % (Auto) Lymph # [place] # Baso # Seg Neutrophils % Seg Neuts % (Manual) Lymphocytes % (Manual) Monocytes % (Manual) Seg Neutrophils # Seg Neutrophils # Man Lymphocytes # (Manual) Monocytes # (Manual) Basophils # (Manual) Percent Retic PT INR APTT Heparin Anti-Xa Level 0.20 L POC ABG pH POC ABG pCO2 POC ABG pO2 Sodium Potassium Chloride Carbon Dioxide BUN Creatinine Glucose POC Glucose 153 H 188 H Calcium Phosphorus Iron TIBC Lactate Dehydrogenase Total Creatine Kinase NT-Pro-B Natriuret Pep Total Protein Albumin [id number] Xyzso-[id number] Beta Globulins PEP Interpretation Cholesterol LDL Cholesterol Direct Vitamin B12 Urine WBC (Auto) Urine Creatinine Crossmatch 05/08/16 05/08/16 05/08/16 17:44 17:49 18:51 WBC RBC Hgb Hct MCV MCH MCHC RDW Plt Count Lymph % (Auto) [place] % (Auto) Lymph # [place] # Baso # Seg Neutrophils % Seg Neuts % (Manual) Lymphocytes % (Manual) Monocytes % (Manual) Seg Neutrophils # Seg Neutrophils # Man Lymphocytes # (Manual) Monocytes # (Manual) Basophils # (Manual) Percent Retic PT INR APTT Heparin Anti-Xa Level POC ABG pH POC ABG pCO2 POC ABG pO2 Sodium Potassium Chloride Carbon Dioxide BUN Creatinine Glucose POC Glucose 56 L 61 L 135 H Calcium Phosphorus Iron TIBC Lactate Dehydrogenase Total Creatine Kinase NT-Pro-B Natriuret Pep Total Protein Albumin Jejpn-4-Jszkpwgah Rbpgt-7-Jodwuhwnr Beta Globulins PEP Interpretation Cholesterol LDL Cholesterol Direct Vitamin B12 Urine WBC (Auto) Urine Creatinine Crossmatch 05/09/16 05/09/16 05/09/16 00:14 04:07 05:18 WBC RBC Hgb Hct MCV MCH MCHC RDW Plt Count Lymph % (Auto) [place] % (Auto) Lymph # [place] # Baso # Seg Neutrophils % Seg Neuts % (Manual) Lymphocytes % (Manual) Monocytes % (Manual) Seg Neutrophils # Seg Neutrophils # Man Lymphocytes # (Manual) Monocytes # (Manual) Basophils # (Manual) Percent Retic PT INR APTT Heparin Anti-Xa Level 0.21 L POC ABG pH POC ABG pCO2 POC ABG pO2 Sodium Potassium Chloride Carbon Dioxide BUN Creatinine Glucose POC Glucose 151 H 215 H Calcium Phosphorus Iron TIBC Lactate Dehydrogenase Total Creatine Kinase NT-Pro-B Natriuret Pep Total Protein Albumin Jqfrj-6-Kkrirahim Kzexr-4-Cbpvdzkrk Beta Globulins PEP Interpretation Cholesterol LDL Cholesterol Direct Vitamin B12 Urine WBC (Auto) Urine Creatinine Crossmatch 05/09/16 05/09/16 05/09/16 12:27 16:39 17:30 WBC RBC Hgb 6.4 L Hct 20.2 L MCV MCH MCHC RDW Plt Count Lymph % (Auto) [place] % (Auto) Lymph # [place] # Baso # Seg Neutrophils % Seg Neuts % (Manual) Lymphocytes % (Manual) Monocytes % (Manual) Seg Neutrophils # Seg Neutrophils # Man Lymphocytes # (Manual) Monocytes # (Manual) Basophils # (Manual) Percent Retic PT INR APTT Heparin Anti-Xa Level POC ABG pH POC ABG pCO2 POC ABG pO2 Sodium Potassium Chloride Carbon Dioxide BUN Creatinine Glucose POC Glucose 291 H 220 H Calcium Phosphorus Iron TIBC Lactate Dehydrogenase Total Creatine Kinase NT-Pro-B Natriuret Pep Total Protein Albumin Jdoll-7-Wzqtapzur Dwojz-7-Fxblmdvun Beta Globulins PEP Interpretation Cholesterol LDL Cholesterol Direct Vitamin B12 Urine WBC (Auto) Urine Creatinine Crossmatch 05/09/16 05/09/16 05/10/16 19:47 23:57 03:55 WBC 16.9 H RBC 3.20 L Hgb 8.6 L Hct 26.7 L D MCV 83 L MCH 27 L MCHC RDW 17.5 H Plt Count 488 H Lymph % (Auto) [place] % (Auto) Lymph # [place] # Baso # Seg Neutrophils % Seg Neuts % (Manual) 76.0 H Lymphocytes % (Manual) 9.0 L Monocytes % (Manual) 10.0 H Seg Neutrophils # Seg Neutrophils # Man 12.8 H Lymphocytes # (Manual) Monocytes # (Manual) 1.7 H Basophils # (Manual) Percent Retic PT INR APTT Heparin Anti-Xa Level POC ABG pH POC ABG pCO2 POC ABG pO2 Sodium Potassium Chloride Carbon Dioxide BUN Creatinine Glucose POC Glucose 217 H Calcium Phosphorus Iron TIBC Lactate Dehydrogenase Total Creatine Kinase NT-Pro-B Natriuret Pep Total Protein Albumin Tvhng-5-Hjacconfn Knpex-3-Jpchgfvup Beta Globulins PEP Interpretation Cholesterol LDL Cholesterol Direct Vitamin B12 Urine WBC (Auto) Urine Creatinine Crossmatch See Detail 05/10/16 05/10/16 05/10/16 05:05 11:49 12:54 WBC RBC Hgb 9.1 L Hct 28.2 L MCV MCH MCHC RDW Plt Count Lymph % (Auto) [place] % (Auto) Lymph # [place] # Baso # Seg Neutrophils % Seg Neuts % (Manual) Lymphocytes % (Manual) Monocytes % (Manual) Seg Neutrophils # Seg Neutrophils # Man Lymphocytes # (Manual) Monocytes # (Manual) Basophils # (Manual) Percent Retic PT INR APTT Heparin Anti-Xa Level POC ABG pH POC ABG pCO2 POC ABG pO2 Sodium Potassium Chloride Carbon Dioxide BUN Creatinine Glucose POC Glucose 182 H 237 H Calcium Phosphorus Iron TIBC Lactate Dehydrogenase Total Creatine Kinase NT-Pro-B Natriuret Pep Total Protein Albumin Vyudn-0-Yrcmwwkma Dmeyt-9-Wpbrabmoz Beta Globulins PEP Interpretation Cholesterol LDL Cholesterol Direct Vitamin B12 Urine WBC (Auto) Urine Creatinine Crossmatch 05/10/16 05/10/16 05/10/16 12:54 17:29 23:07 WBC RBC Hgb Hct MCV MCH MCHC RDW Plt Count Lymph % (Auto) [place] % (Auto) Lymph # [place] # Baso # Seg Neutrophils % Seg Neuts % (Manual) Lymphocytes % (Manual) Monocytes % (Manual) Seg Neutrophils # Seg Neutrophils # Man Lymphocytes # (Manual) Monocytes # (Manual) Basophils # (Manual) Percent Retic PT INR 1.14 H APTT Heparin Anti-Xa Level POC ABG pH POC ABG pCO2 POC ABG pO2 Sodium Potassium Chloride Carbon Dioxide BUN Creatinine Glucose POC Glucose 198 H 172 H Calcium Phosphorus Iron TIBC Lactate Dehydrogenase Total Creatine Kinase NT-Pro-B Natriuret Pep Total Protein Albumin Rpxkd-0-Lbithvmgf Dfcwt-1-Qadxilkbw Beta Globulins PEP Interpretation Cholesterol LDL Cholesterol Direct Vitamin B12 Urine WBC (Auto) Urine Creatinine Crossmatch 05/11/16 05/11/16 05/11/16 04:16 04:16 05:13 WBC 16.1 H RBC 3.27 L Hgb 8.8 L Hct 27.7 L MCV MCH 27 L MCHC RDW 17.9 H Plt Count 475 H Lymph % (Auto) 8.9 L [place] % (Auto) 8.0 H Lymph # [place] # 1.3 H Baso # Seg Neutrophils % 81.6 H Seg Neuts % (Manual) Lymphocytes % (Manual) Monocytes % (Manual) Seg Neutrophils # 13.1 H Seg Neutrophils # Man Lymphocytes # (Manual) Monocytes # (Manual) Basophils # (Manual) Percent Retic PT INR APTT Heparin Anti-Xa Level POC ABG pH POC ABG pCO2 POC ABG pO2 Sodium 152 H Potassium Chloride 114.2 H Carbon Dioxide BUN 23 H Creatinine 0.6 L Glucose 166 H POC Glucose 173 H Calcium 8.0 L Phosphorus Iron TIBC Lactate Dehydrogenase Total Creatine Kinase NT-Pro-B Natriuret Pep Total Protein Albumin Iupgx-7-Cmhvwxckt Flbvl-0-Wtndninqz Beta Globulins PEP Interpretation Cholesterol LDL Cholesterol Direct Vitamin B12 Urine WBC (Auto) Urine Creatinine Crossmatch 05/11/16 05/11/16 05/11/16 11:30 17:20 23:53 WBC RBC Hgb Hct MCV MCH MCHC RDW Plt Count Lymph % (Auto) [place] % (Auto) Lymph # [place] # Baso # Seg Neutrophils % Seg Neuts % (Manual) Lymphocytes % (Manual) Monocytes % (Manual) Seg Neutrophils # Seg Neutrophils # Man Lymphocytes # (Manual) Monocytes # (Manual) Basophils # (Manual) Percent Retic PT INR APTT Heparin Anti-Xa Level POC ABG pH POC ABG pCO2 POC ABG pO2 Sodium Potassium Chloride Carbon Dioxide BUN Creatinine Glucose POC Glucose 192 H 147 H 164 H Calcium Phosphorus Iron TIBC Lactate Dehydrogenase Total Creatine Kinase NT-Pro-B Natriuret Pep Total Protein Albumin Otirg-6-Azbosiajv Ajlvc-8-Zwrnencmo Beta Globulins PEP Interpretation Cholesterol LDL Cholesterol Direct Vitamin B12 Urine WBC (Auto) Urine Creatinine Crossmatch 05/12/16 05/12/16 05/12/16 05:35 07:33 11:01 WBC RBC Hgb 9.2 L Hct 29.2 L MCV MCH MCHC RDW Plt Count 503 H Lymph % (Auto) [place] % (Auto) Lymph # [place] # Baso # Seg Neutrophils % Seg Neuts % (Manual) Lymphocytes % (Manual) Monocytes % (Manual) Seg Neutrophils # Seg Neutrophils # Man Lymphocytes # (Manual) Monocytes # (Manual) Basophils # (Manual) Percent Retic PT INR APTT Heparin Anti-Xa Level POC ABG pH POC ABG pCO2 POC ABG pO2 Sodium 148 H Potassium Chloride 108.5 H Carbon Dioxide BUN Creatinine 0.5 L Glucose 146 H POC Glucose 145 H Calcium 8.2 L Phosphorus Iron TIBC Lactate Dehydrogenase Total Creatine Kinase NT-Pro-B Natriuret Pep Total Protein Albumin Gkiwq-2-Lccwgyyuj Qvzqw-4-Icmkbzmrf Beta Globulins PEP Interpretation Cholesterol LDL Cholesterol Direct Vitamin B12 Urine WBC (Auto) Urine Creatinine Crossmatch 05/12/16 05/12/16 05/12/16 11:44 18:15 19:33 WBC RBC Hgb Hct MCV MCH MCHC RDW Plt Count Lymph % (Auto) [place] % (Auto) Lymph # [place] # Baso # Seg Neutrophils % Seg Neuts % (Manual) Lymphocytes % (Manual) Monocytes % (Manual) Seg Neutrophils # Seg Neutrophils # Man Lymphocytes # (Manual) Monocytes # (Manual) Basophils # (Manual) Percent Retic PT INR APTT Heparin Anti-Xa Level 0.17 L POC ABG pH POC ABG pCO2 POC ABG pO2 Sodium Potassium Chloride Carbon Dioxide BUN Creatinine Glucose POC Glucose 223 H 137 H Calcium Phosphorus Iron TIBC Lactate Dehydrogenase Total Creatine Kinase NT-Pro-B Natriuret Pep Total Protein Albumin Ahyud-3-Igsnoddmj Hwfnm-6-Ktymimtbj Beta Globulins PEP Interpretation Cholesterol LDL Cholesterol Direct Vitamin B12 Urine WBC (Auto) Urine Creatinine Crossmatch 05/12/16 05/13/16 05/13/16 23:23 04:45 05:43 WBC 18.1 H RBC 3.26 L Hgb 9.0 L Hct 29.0 L MCV MCH MCHC 31 L RDW 18.3 H Plt Count 467 H Lymph % (Auto) [place] % (Auto) Lymph # [place] # Baso # Seg Neutrophils % Seg Neuts % (Manual) 76.0 H Lymphocytes % (Manual) 11.0 L Monocytes % (Manual) 8.0 H Seg Neutrophils # Seg Neutrophils # Man 13.8 H Lymphocytes # (Manual) Monocytes # (Manual) 1.4 H Basophils # (Manual) 0.2 H Percent Retic PT INR APTT Heparin Anti-Xa Level POC ABG pH POC ABG pCO2 POC ABG pO2 Sodium Potassium Chloride Carbon Dioxide BUN Creatinine Glucose POC Glucose 114 H 136 H Calcium Phosphorus Iron TIBC Lactate Dehydrogenase Total Creatine Kinase NT-Pro-B Natriuret Pep Total Protein Albumin Ryeyb-5-Jrtwygkii Mtmmw-4-Gpeyflcif Beta Globulins PEP Interpretation Cholesterol LDL Cholesterol Direct Vitamin B12 Urine WBC (Auto) Urine Creatinine Crossmatch 05/13/16 05/13/16 05/13/16 07:04 08:13 11:22 WBC RBC Hgb Hct MCV MCH MCHC RDW Plt Count Lymph % (Auto) [place] % (Auto) Lymph # [place] # Baso # Seg Neutrophils % Seg Neuts % (Manual) Lymphocytes % (Manual) Monocytes % (Manual) Seg Neutrophils # Seg Neutrophils # Man Lymphocytes # (Manual) Monocytes # (Manual) Basophils # (Manual) Percent Retic PT INR APTT Heparin Anti-Xa Level 0.25 L POC ABG pH POC ABG pCO2 POC ABG pO2 Sodium Potassium Chloride 109.1 H Carbon Dioxide BUN Creatinine 0.5 L Glucose 131 H POC Glucose 155 H Calcium 8.1 L Phosphorus Iron TIBC Lactate Dehydrogenase Total Creatine Kinase NT-Pro-B Natriuret Pep Total Protein Albumin Egmjp-2-Nxiygrlty Qjhsj-8-Yengpkcqy Beta Globulins PEP Interpretation Cholesterol LDL Cholesterol Direct Vitamin B12 Urine WBC (Auto) Urine Creatinine Crossmatch 05/13/16 05/13/16 05/13/16 17:29 17:33 17:59 WBC RBC Hgb Hct MCV MCH MCHC RDW Plt Count Lymph % (Auto) [place] % (Auto) Lymph # [place] # Baso # Seg Neutrophils % Seg Neuts % (Manual) Lymphocytes % (Manual) Monocytes % (Manual) Seg Neutrophils # Seg Neutrophils # Man Lymphocytes # (Manual) Monocytes # (Manual) Basophils # (Manual) Percent Retic PT INR APTT Heparin Anti-Xa Level POC ABG pH POC ABG pCO2 POC ABG pO2 Sodium Potassium Chloride Carbon Dioxide BUN Creatinine Glucose POC Glucose 46 L < 40 L 152 H Calcium Phosphorus Iron TIBC Lactate Dehydrogenase Total Creatine Kinase NT-Pro-B Natriuret Pep Total Protein Albumin Cpxxe-8-Jjcwriywu Ydbzk-6-Ryqvkdgip Beta Globulins PEP Interpretation Cholesterol LDL Cholesterol Direct Vitamin B12 Urine WBC (Auto) Urine Creatinine Crossmatch 05/13/16 05/14/16 05/14/16 18:06 04:31 04:31 WBC 18.0 H RBC Hgb 10.2 L Hct 32.6 L MCV MCH 27 L MCHC 31 L RDW 17.5 H Plt Count 576 H Lymph % (Auto) 8.9 L [place] % (Auto) 9.3 H Lymph # [place] # 1.7 H Baso # Seg Neutrophils % 80.5 H Seg Neuts % (Manual) Lymphocytes % (Manual) Monocytes % (Manual) Seg Neutrophils # 14.5 H Seg Neutrophils # Man Lymphocytes # (Manual) Monocytes # (Manual) Basophils # (Manual) Percent Retic PT INR APTT Heparin Anti-Xa Level < 0.10 L POC ABG pH POC ABG pCO2 POC ABG pO2 Sodium Potassium Chloride Carbon Dioxide BUN Creatinine 0.6 L Glucose POC Glucose Calcium Phosphorus Iron TIBC Lactate Dehydrogenase Total Creatine Kinase NT-Pro-B Natriuret Pep Total Protein Albumin Bcpgo-6-Xiydhpham Nntzd-8-Qcmvytmwt Beta Globulins PEP Interpretation Cholesterol LDL Cholesterol Direct Vitamin B12 Urine WBC (Auto) Urine Creatinine Crossmatch 05/14/16 05/14/16 05/14/16 05:50 11:47 17:45 WBC RBC Hgb Hct MCV MCH MCHC RDW Plt Count Lymph % (Auto) [place] % (Auto) Lymph # [place] # Baso # Seg Neutrophils % Seg Neuts % (Manual) Lymphocytes % (Manual) Monocytes % (Manual) Seg Neutrophils # Seg Neutrophils # Man Lymphocytes # (Manual) Monocytes # (Manual) Basophils # (Manual) Percent Retic PT INR APTT Heparin Anti-Xa Level POC ABG pH POC ABG pCO2 POC ABG pO2 Sodium Potassium Chloride Carbon Dioxide BUN Creatinine Glucose POC Glucose 136 H 232 H 220 H Calcium Phosphorus Iron TIBC Lactate Dehydrogenase Total Creatine Kinase NT-Pro-B Natriuret Pep Total Protein Albumin Owypm-4-Hsbfketiq Ivonv-9-Osepfflya Beta Globulins PEP Interpretation Cholesterol LDL Cholesterol Direct Vitamin B12 Urine WBC (Auto) Urine Creatinine Crossmatch 05/14/16 05/15/16 05/15/16 22:57 04:37 04:37 WBC 16.4 H RBC 3.54 L Hgb 9.3 L Hct 29.4 L MCV 83 L MCH 26 L MCHC RDW 17.7 H Plt Count 586 H Lymph % (Auto) 6.7 L [place] % (Auto) 8.3 H Lymph # 1.1 L [place] # 1.4 H Baso # Seg Neutrophils % 83.7 H Seg Neuts % (Manual) Lymphocytes % (Manual) Monocytes % (Manual) Seg Neutrophils # 13.7 H Seg Neutrophils # Man Lymphocytes # (Manual) Monocytes # (Manual) Basophils # (Manual) Percent Retic PT INR APTT Heparin Anti-Xa Level POC ABG pH POC ABG pCO2 POC ABG pO2 Sodium Potassium Chloride Carbon Dioxide BUN Creatinine 0.6 L Glucose 220 H POC Glucose 265 H Calcium Phosphorus Iron TIBC Lactate Dehydrogenase Total Creatine Kinase NT-Pro-B Natriuret Pep Total Protein Albumin Ysnkd-7-Cogeijyoh Pnsbq-9-Jshgybwcx Beta Globulins PEP Interpretation Cholesterol LDL Cholesterol Direct Vitamin B12 Urine WBC (Auto) Urine Creatinine Crossmatch 05/15/16 05/15/16 05/15/16 11:43 17:08 23:47 WBC RBC Hgb Hct MCV MCH MCHC RDW Plt Count Lymph % (Auto) [place] % (Auto) Lymph # [place] # Baso # Seg Neutrophils % Seg Neuts % (Manual) Lymphocytes % (Manual) Monocytes % (Manual) Seg Neutrophils # Seg Neutrophils # Man Lymphocytes # (Manual) Monocytes # (Manual) Basophils # (Manual) Percent Retic PT INR APTT Heparin Anti-Xa Level POC ABG pH POC ABG pCO2 POC ABG pO2 Sodium Potassium Chloride Carbon Dioxide BUN Creatinine Glucose POC Glucose 290 H 180 H 130 H Calcium Phosphorus Iron TIBC Lactate Dehydrogenase Total Creatine Kinase NT-Pro-B Natriuret Pep Total Protein Albumin Lbpuq-7-Wwukmcphg Lptcs-9-Gzslzqkjq Beta Globulins PEP Interpretation Cholesterol LDL Cholesterol Direct Vitamin B12 Urine WBC (Auto) Urine Creatinine Crossmatch 05/16/16 05/16/16 05/16/16 04:13 04:13 04:29 WBC 15.4 H RBC 3.61 L Hgb 9.4 L Hct 30.2 L MCV MCH 26 L MCHC 31 L RDW 18.0 H Plt Count 563 H Lymph % (Auto) 9.3 L [place] % (Auto) 10.1 H Lymph # [place] # 1.6 H Baso # Seg Neutrophils % 79.6 H Seg Neuts % (Manual) Lymphocytes % (Manual) Monocytes % (Manual) Seg Neutrophils # 12.3 H Seg Neutrophils # Man Lymphocytes # (Manual) Monocytes # (Manual) Basophils # (Manual) Percent Retic PT INR APTT Heparin Anti-Xa Level POC ABG pH 7.491 H POC ABG pCO2 33.9 L POC ABG pO2 Sodium 147 H Potassium Chloride 108.2 H Carbon Dioxide BUN 21 H Creatinine 0.6 L Glucose 162 H POC Glucose Calcium Phosphorus Iron TIBC Lactate Dehydrogenase Total Creatine Kinase NT-Pro-B Natriuret Pep Total Protein Albumin Qqqtw-1-Bbqqlcsip Qixex-2-Qphlsfjmq Beta Globulins PEP Interpretation Cholesterol LDL Cholesterol Direct Vitamin B12 Urine WBC (Auto) Urine Creatinine Crossmatch 05/16/16 05/16/16 05/17/16 11:40 17:54 00:00 WBC RBC Hgb Hct MCV MCH MCHC RDW Plt Count Lymph % (Auto) [place] % (Auto) Lymph # [place] # Baso # Seg Neutrophils % Seg Neuts % (Manual) Lymphocytes % (Manual) Monocytes % (Manual) Seg Neutrophils # Seg Neutrophils # Man Lymphocytes # (Manual) Monocytes # (Manual) Basophils # (Manual) Percent Retic PT INR APTT Heparin Anti-Xa Level POC ABG pH POC ABG pCO2 POC ABG pO2 Sodium Potassium Chloride Carbon Dioxide BUN Creatinine Glucose POC Glucose 197 H 128 H 41 L Calcium Phosphorus Iron TIBC Lactate Dehydrogenase Total Creatine Kinase NT-Pro-B Natriuret Pep Total Protein Albumin Xdlqu-7-Gkzjjmmvl Yhody-7-Yljzcqmys Beta Globulins PEP Interpretation Cholesterol LDL Cholesterol Direct Vitamin B12 Urine WBC (Auto) Urine Creatinine Crossmatch 05/17/16 05/17/16 05/17/16 02:29 04:42 04:42 WBC 15.1 H RBC 3.42 L Hgb 9.1 L Hct 28.1 L MCV 82 L MCH 27 L MCHC RDW 18.1 H Plt Count 500 H Lymph % (Auto) 6.4 L [place] % (Auto) 9.3 H Lymph # 1.0 L [place] # 1.4 H Baso # Seg Neutrophils % 83.2 H Seg Neuts % (Manual) Lymphocytes % (Manual) Monocytes % (Manual) Seg Neutrophils # 12.6 H Seg Neutrophils # Man Lymphocytes # (Manual) Monocytes # (Manual) Basophils # (Manual) Percent Retic PT INR APTT Heparin Anti-Xa Level POC ABG pH POC ABG pCO2 POC ABG pO2 Sodium Potassium Chloride 107.7 H Carbon Dioxide BUN Creatinine 0.6 L Glucose 150 H POC Glucose 153 H Calcium 8.3 L Phosphorus Iron TIBC Lactate Dehydrogenase Total Creatine Kinase NT-Pro-B Natriuret Pep Total Protein Albumin Vwogj-1-Vgtfmkexc Opskf-6-Lhwqudrvh Beta Globulins PEP Interpretation Cholesterol LDL Cholesterol Direct Vitamin B12 Urine WBC (Auto) Urine Creatinine Crossmatch 05/17/16 05/17/16 05/17/16 11:02 17:33 23:38 WBC RBC Hgb Hct MCV MCH MCHC RDW Plt Count Lymph % (Auto) [place] % (Auto) Lymph # [place] # Baso # Seg Neutrophils % Seg Neuts % (Manual) Lymphocytes % (Manual) Monocytes % (Manual) Seg Neutrophils # Seg Neutrophils # Man Lymphocytes # (Manual) Monocytes # (Manual) Basophils # (Manual) Percent Retic PT INR APTT Heparin Anti-Xa Level POC ABG pH POC ABG pCO2 POC ABG pO2 Sodium Potassium Chloride Carbon Dioxide BUN Creatinine Glucose POC Glucose 195 H 201 H 135 H Calcium Phosphorus Iron TIBC Lactate Dehydrogenase Total Creatine Kinase NT-Pro-B Natriuret Pep Total Protein Albumin Knela-0-Nuhnbeoyb Mralj-9-Vmnpqiuny Beta Globulins PEP Interpretation Cholesterol LDL Cholesterol Direct Vitamin B12 Urine WBC (Auto) Urine Creatinine Crossmatch 05/18/16 05/18/16 05/18/16 04:08 04:08 06:12 WBC 13.4 H RBC 3.48 L Hgb 9.0 L Hct 28.6 L MCV 82 L MCH 26 L MCHC RDW 18.2 H Plt Count 532 H Lymph % (Auto) 11.4 L [place] % (Auto) 8.8 H Lymph # [place] # 1.2 H Baso # Seg Neutrophils % 77.6 H Seg Neuts % (Manual) Lymphocytes % (Manual) Monocytes % (Manual) Seg Neutrophils # 10.4 H Seg Neutrophils # Man Lymphocytes # (Manual) Monocytes # (Manual) Basophils # (Manual) Percent Retic PT INR APTT Heparin Anti-Xa Level POC ABG pH POC ABG pCO2 POC ABG pO2 Sodium Potassium Chloride Carbon Dioxide BUN 21 H Creatinine 0.5 L Glucose 136 H POC Glucose 157 H Calcium Phosphorus Iron TIBC Lactate Dehydrogenase Total Creatine Kinase NT-Pro-B Natriuret Pep Total Protein Albumin Tkglh-5-Eosehumoo Ylsei-0-Nsdzhurdr Beta Globulins PEP Interpretation Cholesterol LDL Cholesterol Direct Vitamin B12 Urine WBC (Auto) Urine Creatinine Crossmatch 05/18/16 05/18/16 05/18/16 11:52 17:59 23:33 WBC RBC Hgb Hct MCV MCH MCHC RDW Plt Count Lymph % (Auto) [place] % (Auto) Lymph # [place] # Baso # Seg Neutrophils % Seg Neuts % (Manual) Lymphocytes % (Manual) Monocytes % (Manual) Seg Neutrophils # Seg Neutrophils # Man Lymphocytes # (Manual) Monocytes # (Manual) Basophils # (Manual) Percent Retic PT INR APTT Heparin Anti-Xa Level POC ABG pH POC ABG pCO2 POC ABG pO2 Sodium Potassium Chloride Carbon Dioxide BUN Creatinine Glucose POC Glucose 146 H 130 H 120 H Calcium Phosphorus Iron TIBC Lactate Dehydrogenase Total Creatine Kinase NT-Pro-B Natriuret Pep Total Protein Albumin Mkesn-8-Cbhqrrsnp Bvvdb-5-Wliqxgbli Beta Globulins PEP Interpretation Cholesterol LDL Cholesterol Direct Vitamin B12 Urine WBC (Auto) Urine Creatinine Crossmatch 05/19/16 05/19/16 05/19/16 04:32 04:32 05:38 WBC 15.5 H RBC Hgb 10.1 L Hct 31.9 L MCV 81 L MCH 26 L MCHC RDW 17.8 H Plt Count 576 H Lymph % (Auto) 9.4 L [place] % (Auto) 8.5 H Lymph # [place] # 1.3 H Baso # Seg Neutrophils % 80.1 H Seg Neuts % (Manual) Lymphocytes % (Manual) Monocytes % (Manual) Seg Neutrophils # 12.4 H Seg Neutrophils # Man Lymphocytes # (Manual) Monocytes # (Manual) Basophils # (Manual) Percent Retic PT INR APTT Heparin Anti-Xa Level POC ABG pH POC ABG pCO2 POC ABG pO2 Sodium Potassium Chloride Carbon Dioxide BUN Creatinine 0.5 L Glucose 133 H POC Glucose 162 H Calcium Phosphorus Iron TIBC Lactate Dehydrogenase Total Creatine Kinase NT-Pro-B Natriuret Pep Total Protein Albumin Swedy-7-Oqfqpptmg Pevpf-2-Ctoadujyy Beta Globulins PEP Interpretation Cholesterol LDL Cholesterol Direct Vitamin B12 Urine WBC (Auto) Urine Creatinine Crossmatch 05/19/16 05/19/16 05/20/16 12:08 17:19 04:33 WBC RBC Hgb 9.2 L Hct 28.6 L MCV MCH MCHC RDW Plt Count 497 H Lymph % (Auto) [place] % (Auto) Lymph # [place] # Baso # Seg Neutrophils % Seg Neuts % (Manual) Lymphocytes % (Manual) Monocytes % (Manual) Seg Neutrophils # Seg Neutrophils # Man Lymphocytes # (Manual) Monocytes # (Manual) Basophils # (Manual) Percent Retic PT INR APTT Heparin Anti-Xa Level POC ABG pH POC ABG pCO2 POC ABG pO2 Sodium Potassium Chloride Carbon Dioxide BUN Creatinine Glucose POC Glucose 215 H 162 H Calcium Phosphorus Iron TIBC Lactate Dehydrogenase Total Creatine Kinase NT-Pro-B Natriuret Pep Total Protein Albumin Cvhax-1-Pyxsgzemy Hprqw-8-Ekgzzrkrm Beta Globulins PEP Interpretation Cholesterol LDL Cholesterol Direct Vitamin B12 Urine WBC (Auto) Urine Creatinine Crossmatch 05/20/16 05:26 WBC RBC Hgb Hct MCV MCH MCHC RDW Plt Count Lymph % (Auto) [place] % (Auto) Lymph # [place] # Baso # Seg Neutrophils % Seg Neuts % (Manual) Lymphocytes % (Manual) Monocytes % (Manual) Seg Neutrophils # Seg Neutrophils # Man Lymphocytes # (Manual) Monocytes # (Manual) Basophils # (Manual) Percent Retic PT INR APTT Heparin Anti-Xa Level POC ABG pH POC ABG pCO2 POC ABG pO2 Sodium Potassium Chloride Carbon Dioxide BUN Creatinine Glucose POC Glucose 142 H Calcium Phosphorus Iron TIBC Lactate Dehydrogenase Total Creatine Kinase NT-Pro-B Natriuret Pep Total Protein Albumin Gpzmj-9-Kucikchew Yzyoe-7-Tdaecdaux Beta Globulins PEP Interpretation Cholesterol LDL Cholesterol Direct Vitamin B12 Urine WBC (Auto) Urine Creatinine Crossmatch
--- NOTE | 2016-05-20 11:37 | Progress Note ---
Assessment and Plan Assessment and plan: 1. Acute respiratory failure: Pulmonary consulted, T Peice in place, continue current care. 2. Acute CVA:Continue stroke protocol, Hold anticoagulation for now secondary to bleeding. 3. Sepsis Secondary to UTI:Sepsis protocol, IV abx, IVF, supportive care, 4. Encephalopathy: treat sepsis, supportive care, 5. Accelerated hypertension: Monitor bp q shift, continue current therapy. 6. CAD: No angina at this time, continue current care. 7. Seizure Disorder: Continue Keppra. 8. Diabetes: ADA diet, insulin, accu check 9. Oropharyngeal dysphagia. Status post PEG placement. The high probability of a clinically significant, sudden or life threatening deterioration of the [Pulmonary,Renal, Cardiac] system(s) required my full and direct attention, intervention and personal management. The aggregate critical care time was [55] minutes. This time is in addition to time spent performing reported procedures but includes the following: [x] Data Review and interpretation [x] Patient assessment and monitoring of vital signs [x] Documentation [x] Medication orders and management History Interval history: Pt lying in bed. NO reported nursing events overnight. T piece tolerated overnight without difficulty. Hospitalist Physical - Constitutional Vitals: Temp Pulse Resp BP Pulse Ox 98.6 F 92 H 28 H 101/67 97 05/20/16 07:46 05/20/16 10:00 05/20/16 10:00 05/20/16 10:00 05/20/16 08:51 General appearance: Present: no acute distress, other (tracheostomy) - Neck Neck: Present: supple - Respiratory Respiratory: bilateral: diminished - Cardiovascular Rhythm: regular Heart Sounds: Present: S1 & S2 - Extremities Extremities: no ischemia - Abdominal General gastrointestinal: soft, non-tender, non-distended - Integumentary Integumentary: Present: clear, dry - Psychiatric Psychiatric: no intact judgment & insight, no memory intact - Neurologic Neurologic: no gait normal Results - Labs CBC & Chem 7: 05/20/16 04:33 05/19/16 04:32 Labs: Laboratory Last Values WBC 15.5 K/mm3 (4.5-11.0) H 05/19/16 04:32 RBC 3.94 M/mm3 (3.65-5.03) 05/19/16 04:32 Hgb 9.2 gm/dl (11.8-15.2) L 05/20/16 04:33 Hct 28.6 % (35.5-45.6) L 05/20/16 04:33 MCV 81 fl (84-94) L 05/19/16 04:32 MCH 26 pg (28-32) L 05/19/16 04:32 MCHC 32 % (32-34) 05/19/16 04:32 RDW 17.8 % (13.2-15.2) H 05/19/16 04:32 Plt Count 497 K/mm3 (140-440) H 05/20/16 04:33 Lymph % (Auto) 9.4 % (13.4-35.0) L 05/19/16 04:32 [place] % (Auto) 8.5 % (0.0-7.3) H 05/19/16 04:32 Eos % (Auto) 1.4 % (0.0-4.3) 05/19/16 04:32 Baso % (Auto) 0.6 % (0.0-1.8) 05/19/16 04:32 Lymph # 1.5 K/mm3 (1.2-5.4) 05/19/16 04:32 [place]ayer # 1.3 K/mm3 (0.0-0.8) H 05/19/16 04:32 Eos # 0.2 K/mm3 (0.0-0.4) 05/19/16 04:32 Baso # 0.1 K/mm3 (0.0-0.1) 05/19/16 04:32 Add Manual Diff Complete 05/13/16 04:45 Total Counted 100 05/13/16 04:45 Seg Neutrophils % 80.1 % (40.0-70.0) H 05/19/16 04:32 Seg Neuts % (Manual) 76.0 % (40.0-70.0) H 05/13/16 04:45 Band Neutrophils % 3.0 % 05/13/16 04:45 Lymphocytes % (Manual) 11.0 % (13.4-35.0) L 05/13/16 04:45 Reactive Lymphs % (Man) 0 % 05/13/16 04:45 Monocytes % (Manual) 8.0 % (0.0-7.3) H 05/13/16 04:45 Eosinophils % (Manual) 1.0 % (0.0-4.3) 05/13/16 04:45 Basophils % (Manual) 1.0 % (0.0-1.8) 05/13/16 04:45 Metamyelocytes % 0 % 05/13/16 04:45 Myelocytes % 0 % 05/13/16 04:45 Promyelocytes % 0 % 05/13/16 04:45 Blast Cells % 0 % 05/13/16 04:45 Nucleated RBC % Not Reportable 05/13/16 04:45 Seg Neutrophils # 12.4 K/mm3 (1.8-7.7) H 05/19/16 04:32 Seg Neutrophils # Man 13.8 K/mm3 (1.8-7.7) H 05/13/16 04:45 Band Neutrophils # 0.5 K/mm3 05/13/16 04:45 Lymphocytes # (Manual) 2.0 K/mm3 (1.2-5.4) 05/13/16 04:45 Abs React Lymphs (Man) 0.0 K/mm3 05/13/16 04:45 Monocytes # (Manual) 1.4 K/mm3 (0.0-0.8) H 05/13/16 04:45 Eosinophils # (Manual) 0.2 K/mm3 (0.0-0.4) 05/13/16 04:45 Basophils # (Manual) 0.2 K/mm3 (0.0-0.1) H 05/13/16 04:45 Metamyelocytes # 0.0 K/mm3 05/13/16 04:45 Myelocytes # 0.0 K/mm3 05/13/16 04:45 Promyelocytes # 0.0 K/mm3 05/13/16 04:45 Blast Cells # 0.0 K/mm3 05/13/16 04:45 WBC Morphology Not Reportable 05/13/16 04:45 Hypersegmented Neuts Not Reportable 05/13/16 04:45 Hyposegmented Neuts Not Reportable 05/13/16 04:45 Hypogranular Neuts Not Reportable 05/13/16 04:45 Smudge Cells Not Reportable 05/13/16 04:45 Toxic Granulation Not Reportable 05/13/16 04:45 Toxic Vacuolation Not Reportable 05/13/16 04:45 Dohle Bodies Not Reportable 05/13/16 04:45 Pelger-Huet Anomaly Not Reportable 05/13/16 04:45 Corina Rods Not Reportable 05/13/16 04:45 Platelet Estimate Consistent w auto 05/13/16 04:45 Clumped Platelets Not Reportable 05/13/16 04:45 Plt Clumps, EDTA Not Reportable 05/13/16 04:45 Large Platelets Not Reportable 05/13/16 04:45 Giant Platelets Not Reportable 05/13/16 04:45 Platelet Satelliting Not Reportable 05/13/16 04:45 Plt Morphology Comment Not Reportable 05/13/16 04:45 RBC Morphology Not Reportable 05/13/16 04:45 Dimorphic RBCs Not Reportable 05/13/16 04:45 Polychromasia Rare 05/13/16 04:45 Hypochromasia Not Reportable 05/13/16 04:45 Poikilocytosis Not Reportable 05/13/16 04:45 Anisocytosis 1+ 05/13/16 04:45 Microcytosis Not Reportable 05/13/16 04:45 Macrocytosis Rare 05/13/16 04:45 Spherocytes Not Reportable 05/13/16 04:45 Pappenheimer Bodies Not Reportable 05/13/16 04:45 Sickle Cells Not Reportable 05/13/16 04:45 Target Cells Not Reportable 05/13/16 04:45 Tear Drop Cells Not Reportable 05/13/16 04:45 Ovalocytes Not Reportable 05/13/16 04:45 Helmet Cells Not Reportable 05/13/16 04:45 Mcgrath-Flanagan Bodies Not Reportable 05/13/16 04:45 [place] Rings Not Reportable 05/13/16 04:45 Tuan Cells Not Reportable 05/13/16 04:45 Bite Cells Not Reportable 05/13/16 04:45 Crenated Cell Not Reportable 05/13/16 04:45 Elliptocytes Not Reportable 05/13/16 04:45 Acanthocytes (Spur) Not Reportable 05/13/16 04:45 Rouleaux Not Reportable 05/13/16 04:45 Hemoglobin C Crystals Not Reportable 05/13/16 04:45 Schistocytes Not Reportable 05/13/16 04:45 Malaria parasites Not Reportable 05/13/16 04:45 Percent Retic 3.68 % (0.78-2.58) H 04/29/16 10:16 Gideon Bodies Not Reportable 05/13/16 04:45 Hem Pathologist Commnt No 05/13/16 04:45 PT 13.8 Sec. (12.2-14.9) 05/12/16 11:01 INR 1.07 (0.87-1.13) 05/12/16 11:01 APTT 27.2 Sec. (24.2-36.6) 05/12/16 11:01 Heparin Anti-Xa Level < 0.10 U.I./ml (0.3-0.7) L 05/13/16 18:06 POC ABG pH 7.491 (7.35-7.45) H 05/16/16 04:29 POC ABG pCO2 33.9 (35-45) L 05/16/16 04:29 POC ABG pO2 88 (80-105) 05/16/16 04:29 POC ABG HCO3 25.9 05/16/16 04:29 POC ABG Total CO2 27 05/16/16 04:29 POC ABG O2 Sat 98 05/16/16 04:29 POC ABG Base Excess 3 05/16/16 04:29 VBG pH 7.418 (7.320-7.420) 03/24/16 14:00 FiO2 25 % 05/16/16 04:29 Sodium 140 mmol/L (137-145) 05/19/16 04:32 Potassium 4.3 mmol/L (3.6-5.0) 05/19/16 04:32 Chloride 101.1 mmol/L (98-107) 05/19/16 04:32 Carbon Dioxide 24 mmol/L (22-30) 05/19/16 04:32 Anion Gap 19 mmol/L 05/19/16 04:32 BUN 19 mg/dL (9-20) 05/19/16 04:32 Creatinine 0.5 mg/dL (0.8-1.5) L 05/19/16 04:32 Estimated GFR > 60 ml/min 05/19/16 04:32 BUN/Creatinine Ratio 38.00 % 05/19/16 04:32 Glucose 133 mg/dL (75-100) H 05/19/16 04:32 POC Glucose 142 (70-105) H 05/20/16 05:26 Hemoglobin A1c 9.6 % (4-6) H 03/24/16 14:00 Lactic Acid 1.6 mmol/L (0.7-2.0) 04/17/16 12:17 Calcium 9.0 mg/dL (8.4-10.2) 05/19/16 04:32 Phosphorus 3.1 mg/dL (2.5-4.5) 05/11/16 04:16 Magnesium 2.3 mg/dL (1.7-2.3) 05/11/16 04:16 Iron 10 ug/dL (49-181) L 04/29/16 10:16 TIBC 138 mcg/dL (250-450) L 04/29/16 10:16 Ferritin 336.4 ng/mL (13.0-400.0) 04/29/16 10:16 Total Bilirubin < 0.2 mg/dL (0.1-1.2) 04/27/16 04:21 AST 18 units/L (5-40) 04/27/16 04:21 ALT 39 units/L (7-56) 04/27/16 04:21 Alkaline Phosphatase 103 units/L (35-129) 04/27/16 04:21 Lactate Dehydrogenase 204 units/L (91-180) H 04/29/16 10:16 Total Creatine Kinase 356 units/L (55-170) H 03/28/16 13:29 Troponin T < 0.010 ng/mL (0.00-0.029) 03/28/16 13:29 NT-Pro-B Natriuret Pep 897.9 pg/mL (0-900) 04/03/16 04:10 Serum Total Protein 7.1 g/dL (6.1-8.1) 03/25/16 13:00 Total Protein 6.0 g/dL (6.3-8.2) L 04/27/16 04:21 Albumin 2.0 g/dL (3.9-5) L 04/27/16 04:21 Albumin/Globulin Ratio 0.5 % 04/27/16 04:21 [id number] See scanned report 03/31/16 12:20 Hozqf-1-Sspemqajy See scanned report 03/31/16 12:20 Beta Globulins See scanned report 03/31/16 12:20 Ytic-6-[id number] 2.46 mg/L (<=2.51) 03/25/16 13:00 Gamma Globulins See scanned report 03/31/16 12:20 Abnorm Protein Band 1 see below (()) 03/25/16 13:00 PEP Interpretation See scanned report 03/31/16 12:20 Triglycerides 88 mg/dL (2-149) 03/24/16 17:58 Cholesterol 221 mg/dL (50-199) H 03/24/16 17:58 LDL Cholesterol Direct 146 mg/dL (50-130) H 03/24/16 17:58 HDL Cholesterol 58 mg/dL (40-59) 03/24/16 17:58 Cholesterol/HDL Ratio 3.81 % 03/24/16 17:58 Vitamin B12 1005 pg/mL (211-911) H 04/29/16 10:16 Folate 12.78 ng/mL (7.3-26.0) 04/29/16 10:16 Urine Color Yellow (Yellow) 05/04/16 10:20 Urine Turbidity Cloudy (Clear) 05/04/16 10:20 Urine pH 5.0 (5.0-7.0) 05/04/16 10:20 Ur Specific [place] 1.017 (1.003-1.030) 05/04/16 10:20 Urine Protein 100 mg/dl mg/dL (Negative) 05/04/16 10:20 Urine Glucose (UA) >=500 mg/dL (Negative) 05/04/16 10:20 Urine Ketones Neg mg/dL (Negative) 05/04/16 10:20 Urine Blood Sm (Negative) 05/04/16 10:20 Urine Nitrite Neg (Negative) 05/04/16 10:20 Urine Bilirubin Neg (Negative) 05/04/16 10:20 Urine Urobilinogen 2.0 mg/dL (<2.0) 05/04/16 10:20 Ur Leukocyte Esterase Lg (Negative) 05/04/16 10:20 Urine WBC (Auto) > 182.0 /HPF (0.0-6.0) H 05/04/16 10:20 Urine RBC (Auto) 13.0 /HPF (0.0-6.0) 05/04/16 10:20 U Epithel Cells (Auto) < 1.0 /HPF (0-13.0) 05/04/16 10:20 Urine Bacteria (Auto) 1+ /HPF (Negative) 05/04/16 10:20 Urine WBC Clumps 3+ /HPF 05/04/16 10:20 Hyaline Casts 1 /LPF 03/24/16 14:27 Urine Mucus Few /HPF 05/04/16 10:20 Urine Yeast (Budding) 1+ /HPF 05/04/16 10:20 Ur Random Creatinine See scanned report 03/31/16 12:20 U Random Total Protein See scanned report 03/31/16 12:20 Urine Creatinine 85.5 mg/dL (0.1-20.0) H 04/20/16 11:50 Protein/Creatinin Ratio See scanned report 03/31/16 12:20 Urine Sodium 17 mEq/L 04/20/16 11:50 U Abnormal Prot Band 1 See scanned report 03/31/16 12:20 U Abnormal Prot Band 2 See scanned report 03/31/16 12:20 U Abnormal Prot Band 3 See scanned report 03/31/16 12:20 Ketones 1.0 mg/dL (0.2-2.8) 03/24/16 14:00 Blood Type A POSITIVE 05/09/16 19:47 Antibody Screen Negative 05/09/16 19:47 Crossmatch See Detail 05/09/16 19:47
[2016-05-20] MEDS: D50W (25GM) IV PRN (18:02)
[2016-05-21] MEDS: DUONEB 0.5 MG-3 MG/3 ML SOLN IH SCH ×4 (01:29→20:50)
[2016-05-21] MEDS: NOVOLOG SUB-Q SCH ×3 (06:47→18:36)
[2016-05-21] MEDS: NORMODYNE PO SCH ×3 (08:00→21:36)
--- NOTE | 2016-05-21 09:43 | Progress Note ---
Assessment and Plan 61 y/o male with acute encephalopathy, secondary to embolic strokes, now with acute respiratory failure requiring re-intubation. 1. Continue T-piece, trach care. Likely not a candidate for decannulation given his mental state 2. Follow up with CM in regards to funding. 3. Will see PRN Subjective Date of service: 05/21/16 Principal diagnosis: CVA, acute respiratory failure Interval history: Successful transition to the floor. Remains on T-piece with good sats. No family at bedside. Mental status is unchanged. Objective Vital Signs - 12hr 05/21/16 05/21/16 05/21/16 01:00 01:31 05:00 Temperature 98.5 F 98.7 F Pulse Rate Pulse Rate [ 97 H Bilateral] Pulse Rate [ 80 85 Left] Respiratory 16 18 Rate Respiratory 15 Rate [Bilateral ] Blood Pressure 121/59 131/65 O2 Sat by Pulse 96 95 Oximetry O2 Sat by Pulse Oximetry [ Assessment] 05/21/16 05/21/16 05/21/16 06:33 07:54 07:56 Temperature Pulse Rate 82 Pulse Rate [ 94 H Bilateral] Pulse Rate [ Left] Respiratory Rate Respiratory 20 Rate [Bilateral ] Blood Pressure O2 Sat by Pulse 95 Oximetry O2 Sat by Pulse Oximetry [ Assessment] 05/21/16 05/21/16 05/21/16 08:00 08:04 08:16 Temperature 98.3 F Pulse Rate Pulse Rate [ 96 H Bilateral] Pulse Rate [ 95 H Left] Respiratory 24 Rate Respiratory 20 Rate [Bilateral ] Blood Pressure 120/68 O2 Sat by Pulse 98 Oximetry O2 Sat by Pulse 95 Oximetry [ Assessment] Constitutional: no acute distress Eyes: non-icteric ENT: other (tracheotomy) Neck: supple, other (no bleeding at trach site) Effort: normal Ascultation: Bilateral: clear, rhonchi (occasional) Percussion: Bilateral: not dull Cardiovascular: regular rate and rhythm, murmur noted Gastrointestinal: normoactive bowel sounds, soft, non-tender Extremities: no cyanosis, no edema Neurologic: other (eyes open, not following commands or moving extremities for me) Psychiatric: other (unable to assess) CBC and BMP: 05/20/16 04:33 05/19/16 04:32 ABG, PT/INR, D-dimer: ABG POC ABG pH 7.491 (7.35-7.45) H 05/16/16 04:29 POC ABG pCO2 33.9 (35-45) L 05/16/16 04:29 POC ABG pO2 88 (80-105) 05/16/16 04:29 POC ABG HCO3 25.9 05/16/16 04:29 POC ABG Total CO2 27 05/16/16 04:29 POC ABG O2 Sat 98 05/16/16 04:29 PT/INR, D-dimer PT 13.8 Sec. (12.2-14.9) 05/12/16 11:01 INR 1.07 (0.87-1.13) 05/12/16 11:01 Abnormal lab findings: Abnormal Labs 03/24/16 03/24/16 03/24/16 17:58 20:25 23:23 WBC RBC Hgb Hct MCV MCH MCHC RDW Plt Count Lymph % (Auto) [place] % (Auto) Lymph # [place] # Baso # Seg Neutrophils % Seg Neuts % (Manual) Lymphocytes % (Manual) Monocytes % (Manual) Seg Neutrophils # Seg Neutrophils # Man Lymphocytes # (Manual) Monocytes # (Manual) Basophils # (Manual) Percent Retic PT INR APTT Heparin Anti-Xa Level POC ABG pH POC ABG pCO2 POC ABG pO2 Sodium 169 H* Potassium 3.5 L Chloride 130.3 H Carbon Dioxide BUN 28 H Creatinine 1.8 H Glucose POC Glucose 112 H Calcium Phosphorus Iron TIBC Lactate Dehydrogenase Total Creatine Kinase NT-Pro-B Natriuret Pep Total Protein Albumin Fhdrr-5-Vohjcnlky Geobd-1-Tbcwtdwxp Beta Globulins PEP Interpretation Cholesterol 221 H LDL Cholesterol Direct 146 H Vitamin B12 Urine WBC (Auto) Urine Creatinine Crossmatch 03/25/16 03/25/16 03/25/16 05:56 05:56 05:56 WBC 21.3 H RBC 6.32 H Hgb 16.7 H Hct 52.7 H MCV 83 L MCH 27 L MCHC RDW Plt Count Lymph % (Auto) [place] % (Auto) Lymph # [place] # Baso # Seg Neutrophils % Seg Neuts % (Manual) 91.0 H Lymphocytes % (Manual) 4.0 L Monocytes % (Manual) Seg Neutrophils # Seg Neutrophils # Man 19.4 H Lymphocytes # (Manual) 0.9 L Monocytes # (Manual) 0.9 H Basophils # (Manual) Percent Retic PT INR APTT Heparin Anti-Xa Level POC ABG pH POC ABG pCO2 POC ABG pO2 Sodium 172 H* Potassium 3.5 L Chloride 130.4 H Carbon Dioxide BUN 29 H Creatinine 1.8 H Glucose 187 H POC Glucose Calcium Phosphorus Iron TIBC Lactate Dehydrogenase 460 H Total Creatine Kinase NT-Pro-B Natriuret Pep Total Protein Albumin Cqvqo-5-Ecitbvnyi Ejbtr-3-Rezoqhbve Beta Globulins PEP Interpretation Cholesterol LDL Cholesterol Direct Vitamin B12 Urine WBC (Auto) Urine Creatinine Crossmatch 03/25/16 03/25/16 03/25/16 07:55 12:19 13:00 WBC RBC Hgb Hct MCV MCH MCHC RDW Plt Count Lymph % (Auto) [place] % (Auto) Lymph # [place] # Baso # Seg Neutrophils % Seg Neuts % (Manual) Lymphocytes % (Manual) Monocytes % (Manual) Seg Neutrophils # Seg Neutrophils # Man Lymphocytes # (Manual) Monocytes # (Manual) Basophils # (Manual) Percent Retic PT INR APTT Heparin Anti-Xa Level POC ABG pH POC ABG pCO2 POC ABG pO2 Sodium Potassium Chloride Carbon Dioxide BUN Creatinine Glucose POC Glucose 231 H 314 H Calcium Phosphorus Iron TIBC Lactate Dehydrogenase Total Creatine Kinase NT-Pro-B Natriuret Pep Total Protein Albumin 3.4 L Iebws-3-Wkjsufeal 0.4 H Togxj-3-Nzqczxgnz 1.1 H Beta Globulins 0.6 H PEP Interpretation see below H Cholesterol LDL Cholesterol Direct Vitamin B12 Urine WBC (Auto) Urine Creatinine Crossmatch 03/25/16 03/25/16 03/26/16 16:41 22:45 08:32 WBC RBC Hgb Hct MCV MCH MCHC RDW Plt Count Lymph % (Auto) [place] % (Auto) Lymph # [place] # Baso # Seg Neutrophils % Seg Neuts % (Manual) Lymphocytes % (Manual) Monocytes % (Manual) Seg Neutrophils # Seg Neutrophils # Man Lymphocytes # (Manual) Monocytes # (Manual) Basophils # (Manual) Percent Retic PT INR APTT Heparin Anti-Xa Level POC ABG pH POC ABG pCO2 POC ABG pO2 Sodium Potassium Chloride Carbon Dioxide BUN Creatinine Glucose POC Glucose 444 H 326 H 360 H Calcium Phosphorus Iron TIBC Lactate Dehydrogenase Total Creatine Kinase NT-Pro-B Natriuret Pep Total Protein Albumin Jhhgv-4-Kbbeiyafp Sprbx-0-Rzzmeewve Beta Globulins PEP Interpretation Cholesterol LDL Cholesterol Direct Vitamin B12 Urine WBC (Auto) Urine Creatinine Crossmatch 03/26/16 03/26/16 03/26/16 12:38 15:33 15:47 WBC RBC Hgb Hct MCV MCH MCHC RDW Plt Count Lymph % (Auto) [place] % (Auto) Lymph # [place] # Baso # Seg Neutrophils % Seg Neuts % (Manual) Lymphocytes % (Manual) Monocytes % (Manual) Seg Neutrophils # Seg Neutrophils # Man Lymphocytes # (Manual) Monocytes # (Manual) Basophils # (Manual) Percent Retic PT INR APTT Heparin Anti-Xa Level POC ABG pH 7.511 H POC ABG pCO2 26.5 L POC ABG pO2 70 L Sodium Potassium Chloride Carbon Dioxide BUN Creatinine Glucose POC Glucose 280 H 174 H Calcium Phosphorus Iron TIBC Lactate Dehydrogenase Total Creatine Kinase NT-Pro-B Natriuret Pep Total Protein Albumin Xsgdd-9-Merzikzjq Oxkze-0-Hgncbbbel Beta Globulins PEP Interpretation Cholesterol LDL Cholesterol Direct Vitamin B12 Urine WBC (Auto) Urine Creatinine Crossmatch 03/26/16 03/26/16 03/26/16 16:47 16:47 18:51 WBC 14.0 H RBC 5.17 H Hgb Hct MCV MCH 26 L MCHC 31 L RDW Plt Count 139 L Lymph % (Auto) [place] % (Auto) Lymph # [place] # Baso # Seg Neutrophils % Seg Neuts % (Manual) Lymphocytes % (Manual) Monocytes % (Manual) Seg Neutrophils # Seg Neutrophils # Man Lymphocytes # (Manual) Monocytes # (Manual) Basophils # (Manual) Percent Retic PT INR APTT Heparin Anti-Xa Level POC ABG pH POC ABG pCO2 33.9 L POC ABG pO2 150 H Sodium 164 H* Potassium 3.4 L Chloride 128.5 H Carbon Dioxide BUN 30 H Creatinine 2.2 H Glucose 121 H POC Glucose Calcium 8.1 L Phosphorus Iron TIBC Lactate Dehydrogenase Total Creatine Kinase NT-Pro-B Natriuret Pep Total Protein Albumin Uyiyx-9-Immvqwnzp Mvlmp-9-Xxkinmapo Beta Globulins PEP Interpretation Cholesterol LDL Cholesterol Direct Vitamin B12 Urine WBC (Auto) Urine Creatinine Crossmatch 03/27/16 03/27/16 03/27/16 02:19 05:47 06:02 WBC RBC Hgb Hct MCV MCH MCHC RDW Plt Count Lymph % (Auto) [place] % (Auto) Lymph # [place] # Baso # Seg Neutrophils % Seg Neuts % (Manual) Lymphocytes % (Manual) Monocytes % (Manual) Seg Neutrophils # Seg Neutrophils # Man Lymphocytes # (Manual) Monocytes # (Manual) Basophils # (Manual) Percent Retic PT INR APTT Heparin Anti-Xa Level POC ABG pH POC ABG pCO2 27.3 L 30.3 L POC ABG pO2 50 L 112 H Sodium 158 H Potassium Chloride 126.7 H Carbon Dioxide 20 L BUN 25 H Creatinine 1.7 H Glucose POC Glucose Calcium 7.0 L Phosphorus Iron TIBC Lactate Dehydrogenase Total Creatine Kinase NT-Pro-B Natriuret Pep Total Protein Albumin Efzum-5-Birarxpqp Gnqda-1-Btbpyhdca Beta Globulins PEP Interpretation Cholesterol LDL Cholesterol Direct Vitamin B12 Urine WBC (Auto) Urine Creatinine Crossmatch 03/27/16 03/27/16 03/27/16 07:51 09:20 11:45 WBC 14.2 H RBC Hgb Hct MCV 83 L MCH 27 L MCHC RDW Plt Count 113 L Lymph % (Auto) [place] % (Auto) Lymph # [place] # Baso # Seg Neutrophils % Seg Neuts % (Manual) Lymphocytes % (Manual) Monocytes % (Manual) Seg Neutrophils # Seg Neutrophils # Man Lymphocytes # (Manual) Monocytes # (Manual) Basophils # (Manual) Percent Retic PT INR APTT Heparin Anti-Xa Level POC ABG pH POC ABG pCO2 POC ABG pO2 Sodium Potassium Chloride Carbon Dioxide BUN Creatinine Glucose POC Glucose 124 H 241 H Calcium Phosphorus Iron TIBC Lactate Dehydrogenase Total Creatine Kinase NT-Pro-B Natriuret Pep Total Protein Albumin Mswbg-8-Dbonfkkfx Anxob-5-Xtvpkkydv Beta Globulins PEP Interpretation Cholesterol LDL Cholesterol Direct Vitamin B12 Urine WBC (Auto) Urine Creatinine Crossmatch 03/27/16 03/27/16 03/28/16 16:39 22:03 03:29 WBC RBC Hgb Hct MCV MCH MCHC RDW Plt Count Lymph % (Auto) [place] % (Auto) Lymph # [place] # Baso # Seg Neutrophils % Seg Neuts % (Manual) Lymphocytes % (Manual) Monocytes % (Manual) Seg Neutrophils # Seg Neutrophils # Man Lymphocytes # (Manual) Monocytes # (Manual) Basophils # (Manual) Percent Retic PT INR APTT Heparin Anti-Xa Level POC ABG pH POC ABG pCO2 POC ABG pO2 Sodium Potassium Chloride Carbon Dioxide BUN Creatinine Glucose POC Glucose 266 H 167 H 241 H Calcium Phosphorus Iron TIBC Lactate Dehydrogenase Total Creatine Kinase NT-Pro-B Natriuret Pep Total Protein Albumin Bhpoz-4-Pwjwxaayo Wpkyb-1-Zuvlbdngl Beta Globulins PEP Interpretation Cholesterol LDL Cholesterol Direct Vitamin B12 Urine WBC (Auto) Urine Creatinine Crossmatch 03/28/16 03/28/16 03/28/16 05:00 05:00 05:00 WBC RBC Hgb Hct MCV 83 L MCH 27 L MCHC RDW Plt Count 106 L Lymph % (Auto) [place] % (Auto) 10.1 H Lymph # [place] # 1.0 H Baso # Seg Neutrophils % 75.1 H Seg Neuts % (Manual) Lymphocytes % (Manual) Monocytes % (Manual) Seg Neutrophils # Seg Neutrophils # Man Lymphocytes # (Manual) Monocytes # (Manual) Basophils # (Manual) Percent Retic PT INR APTT Heparin Anti-Xa Level POC ABG pH POC ABG pCO2 POC ABG pO2 Sodium 147 H D Potassium 3.1 L D Chloride 112.3 H Carbon Dioxide 21 L BUN Creatinine Glucose 208 H POC Glucose Calcium 7.0 L Phosphorus 2.2 L Iron TIBC Lactate Dehydrogenase Total Creatine Kinase NT-Pro-B Natriuret Pep Total Protein Albumin Udkhw-7-Buybpsjjv Xyigz-2-Yyyornlyg Beta Globulins PEP Interpretation Cholesterol LDL Cholesterol Direct Vitamin B12 Urine WBC (Auto) Urine Creatinine Crossmatch 03/28/16 03/28/16 03/28/16 05:14 08:41 10:56 WBC RBC Hgb Hct MCV MCH MCHC RDW Plt Count Lymph % (Auto) [place] % (Auto) Lymph # [place] # Baso # Seg Neutrophils % Seg Neuts % (Manual) Lymphocytes % (Manual) Monocytes % (Manual) Seg Neutrophils # Seg Neutrophils # Man Lymphocytes # (Manual) Monocytes # (Manual) Basophils # (Manual) Percent Retic PT INR APTT Heparin Anti-Xa Level POC ABG pH 7.457 H POC ABG pCO2 29.7 L 27.7 L POC ABG pO2 Sodium Potassium Chloride Carbon Dioxide BUN Creatinine Glucose POC Glucose 228 H Calcium Phosphorus Iron TIBC Lactate Dehydrogenase Total Creatine Kinase NT-Pro-B Natriuret Pep Total Protein Albumin Isham-8-Sbnphgzif Pfrzw-5-Jwfnmqwdy Beta Globulins PEP Interpretation Cholesterol LDL Cholesterol Direct Vitamin B12 Urine WBC (Auto) Urine Creatinine Crossmatch 03/28/16 03/28/16 03/28/16 11:37 13:29 16:22 WBC RBC Hgb Hct MCV MCH MCHC RDW Plt Count Lymph % (Auto) [place] % (Auto) Lymph # [place] # Baso # Seg Neutrophils % Seg Neuts % (Manual) Lymphocytes % (Manual) Monocytes % (Manual) Seg Neutrophils # Seg Neutrophils # Man Lymphocytes # (Manual) Monocytes # (Manual) Basophils # (Manual) Percent Retic PT INR APTT Heparin Anti-Xa Level POC ABG pH POC ABG pCO2 POC ABG pO2 Sodium Potassium Chloride Carbon Dioxide BUN Creatinine Glucose POC Glucose 226 H 200 H Calcium Phosphorus Iron TIBC Lactate Dehydrogenase Total Creatine Kinase 356 H NT-Pro-B Natriuret Pep Total Protein Albumin Qplck-9-Vzkqsbehq Ookqx-7-Zwfqvyoze Beta Globulins PEP Interpretation Cholesterol LDL Cholesterol Direct Vitamin B12 Urine WBC (Auto) Urine Creatinine Crossmatch 03/28/16 03/29/16 03/29/16 21:48 04:50 04:50 WBC RBC Hgb 11.5 L Hct 35.3 L MCV 81 L MCH 26 L MCHC RDW Plt Count 97 L Lymph % (Auto) [place] % (Auto) 11.7 H Lymph # [place] # 1.1 H Baso # Seg Neutrophils % Seg Neuts % (Manual) Lymphocytes % (Manual) Monocytes % (Manual) Seg Neutrophils # Seg Neutrophils # Man Lymphocytes # (Manual) Monocytes # (Manual) Basophils # (Manual) Percent Retic PT INR APTT Heparin Anti-Xa Level POC ABG pH POC ABG pCO2 POC ABG pO2 Sodium 136 L D Potassium 3.3 L Chloride Carbon Dioxide 20 L BUN Creatinine Glucose 386 H POC Glucose 188 H Calcium 6.8 L Phosphorus 1.6 L D Iron TIBC Lactate Dehydrogenase Total Creatine Kinase NT-Pro-B Natriuret Pep Total Protein Albumin Vvxda-9-Vmlflhemh Lsccu-8-Ltcxbprsh Beta Globulins PEP Interpretation Cholesterol LDL Cholesterol Direct Vitamin B12 Urine WBC (Auto) Urine Creatinine Crossmatch 03/29/16 03/29/16 03/29/16 08:10 11:12 16:09 WBC RBC Hgb Hct MCV MCH MCHC RDW Plt Count Lymph % (Auto) [place] % (Auto) Lymph # [place] # Baso # Seg Neutrophils % Seg Neuts % (Manual) Lymphocytes % (Manual) Monocytes % (Manual) Seg Neutrophils # Seg Neutrophils # Man Lymphocytes # (Manual) Monocytes # (Manual) Basophils # (Manual) Percent Retic PT INR APTT Heparin Anti-Xa Level POC ABG pH POC ABG pCO2 POC ABG pO2 Sodium Potassium Chloride Carbon Dioxide BUN Creatinine Glucose POC Glucose 230 H 180 H 46 L Calcium Phosphorus Iron TIBC Lactate Dehydrogenase Total Creatine Kinase NT-Pro-B Natriuret Pep Total Protein Albumin Rpydg-0-Xojzbxohk Xudxt-0-Anidmwvuo Beta Globulins PEP Interpretation Cholesterol LDL Cholesterol Direct Vitamin B12 Urine WBC (Auto) Urine Creatinine Crossmatch 03/29/16 03/29/16 03/30/16 16:12 18:15 02:53 WBC RBC Hgb Hct MCV MCH MCHC RDW Plt Count Lymph % (Auto) [place] % (Auto) Lymph # [place] # Baso # Seg Neutrophils % Seg Neuts % (Manual) Lymphocytes % (Manual) Monocytes % (Manual) Seg Neutrophils # Seg Neutrophils # Man Lymphocytes # (Manual) Monocytes # (Manual) Basophils # (Manual) Percent Retic PT INR APTT Heparin Anti-Xa Level POC ABG pH POC ABG pCO2 POC ABG pO2 Sodium Potassium Chloride Carbon Dioxide BUN Creatinine Glucose POC Glucose 52 L 118 H 130 H Calcium Phosphorus Iron TIBC Lactate Dehydrogenase Total Creatine Kinase NT-Pro-B Natriuret Pep Total Protein Albumin Bacns-2-Zxkednjqs Rksmb-5-Bbtkffbtb Beta Globulins PEP Interpretation Cholesterol LDL Cholesterol Direct Vitamin B12 Urine WBC (Auto) Urine Creatinine Crossmatch 03/30/16 03/30/16 03/30/16 04:00 04:00 05:29 WBC RBC Hgb Hct MCV 81 L MCH 26 L MCHC RDW Plt Count 116 L Lymph % (Auto) 10.8 L [place] % (Auto) 13.1 H Lymph # 1.0 L [place] # 1.3 H Baso # Seg Neutrophils % 74.2 H Seg Neuts % (Manual) Lymphocytes % (Manual) Monocytes % (Manual) Seg Neutrophils # Seg Neutrophils # Man Lymphocytes # (Manual) Monocytes # (Manual) Basophils # (Manual) Percent Retic PT INR APTT Heparin Anti-Xa Level POC ABG pH 7.522 H POC ABG pCO2 22.7 L POC ABG pO2 137 H Sodium 147 H D Potassium Chloride 115.5 H Carbon Dioxide 20 L BUN Creatinine Glucose 116 H POC Glucose Calcium 7.6 L Phosphorus 2.3 L D Iron TIBC Lactate Dehydrogenase Total Creatine Kinase NT-Pro-B Natriuret Pep Total Protein Albumin Dmzol-1-Wtmaoxgpx Ohrrv-4-Midykoigj Beta Globulins PEP Interpretation Cholesterol LDL Cholesterol Direct Vitamin B12 Urine WBC (Auto) Urine Creatinine Crossmatch 11/03/30/16 03/30/16 05:47 08:05 08:59 WBC RBC Hgb Hct MCV MCH MCHC RDW Plt Count Lymph % (Auto) [place] % (Auto) Lymph # [place] # Baso # Seg Neutrophils % Seg Neuts % (Manual) Lymphocytes % (Manual) Monocytes % (Manual) Seg Neutrophils # Seg Neutrophils # Man Lymphocytes # (Manual) Monocytes # (Manual) Basophils # (Manual) Percent Retic PT INR APTT Heparin Anti-Xa Level POC ABG pH POC ABG pCO2 26.2 L POC ABG pO2 115 H Sodium Potassium Chloride Carbon Dioxide BUN Creatinine Glucose POC Glucose 138 H 171 H Calcium Phosphorus Iron TIBC Lactate Dehydrogenase Total Creatine Kinase NT-Pro-B Natriuret Pep Total Protein Albumin Yzugn-9-Gpxiknhed Mrgvo-5-Aygttpecr Beta Globulins PEP Interpretation Cholesterol LDL Cholesterol Direct Vitamin B12 Urine WBC (Auto) Urine Creatinine Crossmatch 03/30/16 03/30/16 03/30/16 12:11 12:11 16:39 WBC RBC Hgb Hct MCV MCH MCHC RDW Plt Count Lymph % (Auto) [place] % (Auto) Lymph # [place] # Baso # Seg Neutrophils % Seg Neuts % (Manual) Lymphocytes % (Manual) Monocytes % (Manual) Seg Neutrophils # Seg Neutrophils # Man Lymphocytes # (Manual) Monocytes # (Manual) Basophils # (Manual) Percent Retic PT INR APTT Heparin Anti-Xa Level POC ABG pH 7.476 H POC ABG pCO2 29.0 L POC ABG pO2 Sodium Potassium Chloride Carbon Dioxide BUN Creatinine Glucose POC Glucose 142 H 59 L Calcium Phosphorus Iron TIBC Lactate Dehydrogenase Total Creatine Kinase NT-Pro-B Natriuret Pep Total Protein Albumin Rhqvj-3-Uxnzxyklx Kbmtz-0-Pctixeivl Beta Globulins PEP Interpretation Cholesterol LDL Cholesterol Direct Vitamin B12 Urine WBC (Auto) Urine Creatinine Crossmatch 03/30/16 03/30/16 03/31/16 18:41 21:59 05:02 WBC RBC Hgb Hct MCV MCH MCHC RDW Plt Count Lymph % (Auto) [place] % (Auto) Lymph # [place] # Baso # Seg Neutrophils % Seg Neuts % (Manual) Lymphocytes % (Manual) Monocytes % (Manual) Seg Neutrophils # Seg Neutrophils # Man Lymphocytes # (Manual) Monocytes # (Manual) Basophils # (Manual) Percent Retic PT INR APTT Heparin Anti-Xa Level POC ABG pH 7.519 H POC ABG pCO2 21.8 L POC ABG pO2 142 H Sodium Potassium Chloride Carbon Dioxide BUN Creatinine Glucose POC Glucose 145 H 154 H Calcium Phosphorus Iron TIBC Lactate Dehydrogenase Total Creatine Kinase NT-Pro-B Natriuret Pep Total Protein Albumin Haoxc-9-Mlqafmxqk Dgrro-0-Ehwpjnpbe Beta Globulins PEP Interpretation Cholesterol LDL Cholesterol Direct Vitamin B12 Urine WBC (Auto) Urine Creatinine Crossmatch 03/31/16 03/31/16 03/31/16 05:15 05:15 05:15 WBC 13.4 H RBC 5.21 H Hgb Hct MCV 81 L MCH 26 L MCHC RDW Plt Count Lymph % (Auto) 9.5 L [place] % (Auto) 14.0 H Lymph # [place] # 1.9 H Baso # Seg Neutrophils % 75.0 H Seg Neuts % (Manual) Lymphocytes % (Manual) Monocytes % (Manual) Seg Neutrophils # 10.1 H Seg Neutrophils # Man Lymphocytes # (Manual) Monocytes # (Manual) Basophils # (Manual) Percent Retic PT INR APTT Heparin Anti-Xa Level POC ABG pH POC ABG pCO2 POC ABG pO2 Sodium Potassium Chloride 108.5 H Carbon Dioxide 19 L BUN Creatinine Glucose 188 H POC Glucose Calcium Phosphorus Iron TIBC Lactate Dehydrogenase Total Creatine Kinase NT-Pro-B Natriuret Pep 1089 H Total Protein Albumin Tdcji-9-Lrpnnhkvg Zboaw-8-Qntdwomnz Beta Globulins PEP Interpretation Cholesterol LDL Cholesterol Direct Vitamin B12 Urine WBC (Auto) Urine Creatinine Crossmatch 03/31/16 03/31/16 03/31/16 07:23 11:12 15:20 WBC RBC Hgb Hct MCV MCH MCHC RDW Plt Count Lymph % (Auto) [place] % (Auto) Lymph # [place] # Baso # Seg Neutrophils % Seg Neuts % (Manual) Lymphocytes % (Manual) Monocytes % (Manual) Seg Neutrophils # Seg Neutrophils # Man Lymphocytes # (Manual) Monocytes # (Manual) Basophils # (Manual) Percent Retic PT INR APTT Heparin Anti-Xa Level POC ABG pH POC ABG pCO2 POC ABG pO2 Sodium Potassium Chloride Carbon Dioxide BUN Creatinine Glucose POC Glucose 233 H 228 H 208 H Calcium Phosphorus Iron TIBC Lactate Dehydrogenase Total Creatine Kinase NT-Pro-B Natriuret Pep Total Protein Albumin Rskve-7-Urwlgskgb Fojrp-9-Ibqirlxjb Beta Globulins PEP Interpretation Cholesterol LDL Cholesterol Direct Vitamin B12 Urine WBC (Auto) Urine Creatinine Crossmatch 03/31/16 04/01/16 04/01/16 21:27 04:41 05:35 WBC 12.1 H RBC Hgb Hct MCV 81 L MCH 26 L MCHC RDW Plt Count Lymph % (Auto) 8.5 L [place] % (Auto) 14.0 H Lymph # 1.0 L [place] # 1.7 H Baso # Seg Neutrophils % 76.2 H Seg Neuts % (Manual) Lymphocytes % (Manual) Monocytes % (Manual) Seg Neutrophils # 9.2 H Seg Neutrophils # Man Lymphocytes # (Manual) Monocytes # (Manual) Basophils # (Manual) Percent Retic PT INR APTT Heparin Anti-Xa Level POC ABG pH 7.455 H POC ABG pCO2 31.0 L POC ABG pO2 Sodium Potassium Chloride Carbon Dioxide BUN Creatinine Glucose POC Glucose 162 H Calcium Phosphorus Iron TIBC Lactate Dehydrogenase Total Creatine Kinase NT-Pro-B Natriuret Pep Total Protein Albumin Glljs-8-Xrvyvpnly Hmdjb-5-Iyjexdeoq Beta Globulins PEP Interpretation Cholesterol LDL Cholesterol Direct Vitamin B12 Urine WBC (Auto) Urine Creatinine Crossmatch 04/01/16 04/01/16 04/01/16 05:35 08:44 12:49 WBC RBC Hgb Hct MCV MCH MCHC RDW Plt Count Lymph % (Auto) [place] % (Auto) Lymph # [place] # Baso # Seg Neutrophils % Seg Neuts % (Manual) Lymphocytes % (Manual) Monocytes % (Manual) Seg Neutrophils # Seg Neutrophils # Man Lymphocytes # (Manual) Monocytes # (Manual) Basophils # (Manual) Percent Retic PT INR APTT Heparin Anti-Xa Level POC ABG pH POC ABG pCO2 POC ABG pO2 Sodium Potassium Chloride Carbon Dioxide BUN Creatinine Glucose 256 H POC Glucose 257 H 279 H Calcium 8.0 L Phosphorus Iron TIBC Lactate Dehydrogenase Total Creatine Kinase NT-Pro-B Natriuret Pep 1205 H Total Protein Albumin Ywryp-2-Lzzpxiaui Qaoxl-8-Lilmhaein Beta Globulins PEP Interpretation Cholesterol LDL Cholesterol Direct Vitamin B12 Urine WBC (Auto) Urine Creatinine Crossmatch 04/01/16 04/02/16 04/02/16 18:12 00:42 04:17 WBC RBC Hgb Hct MCV MCH MCHC RDW Plt Count Lymph % (Auto) [place] % (Auto) Lymph # [place] # Baso # Seg Neutrophils % Seg Neuts % (Manual) Lymphocytes % (Manual) Monocytes % (Manual) Seg Neutrophils # Seg Neutrophils # Man Lymphocytes # (Manual) Monocytes # (Manual) Basophils # (Manual) Percent Retic PT INR APTT Heparin Anti-Xa Level POC ABG pH 7.582 H POC ABG pCO2 26.8 L POC ABG pO2 Sodium Potassium Chloride Carbon Dioxide BUN Creatinine Glucose POC Glucose 168 H 282 H Calcium Phosphorus Iron TIBC Lactate Dehydrogenase Total Creatine Kinase NT-Pro-B Natriuret Pep Total Protein Albumin Xxlse-8-Yosotbivj Ppnhx-9-Htowvuode Beta Globulins PEP Interpretation Cholesterol LDL Cholesterol Direct Vitamin B12 Urine WBC (Auto) Urine Creatinine Crossmatch 04/02/16 04/02/16 04/02/16 05:00 05:00 06:27 WBC 12.4 H RBC Hgb Hct MCV 81 L MCH 26 L MCHC RDW Plt Count Lymph % (Auto) 6.4 L [place] % (Auto) 13.3 H Lymph # 0.8 L [place] # 1.7 H Baso # Seg Neutrophils % 79.4 H Seg Neuts % (Manual) Lymphocytes % (Manual) Monocytes % (Manual) Seg Neutrophils # 9.9 H Seg Neutrophils # Man Lymphocytes # (Manual) Monocytes # (Manual) Basophils # (Manual) Percent Retic PT INR APTT Heparin Anti-Xa Level POC ABG pH POC ABG pCO2 POC ABG pO2 Sodium 146 H Potassium Chloride Carbon Dioxide BUN Creatinine Glucose 334 H POC Glucose 317 H Calcium 8.0 L Phosphorus Iron TIBC Lactate Dehydrogenase Total Creatine Kinase NT-Pro-B Natriuret Pep Total Protein Albumin Xgbbp-4-Kwkjrqsli Zuqsr-2-Ajttroujr Beta Globulins PEP Interpretation Cholesterol LDL Cholesterol Direct Vitamin B12 Urine WBC (Auto) Urine Creatinine Crossmatch 04/02/16 04/02/16 04/02/16 11:51 13:10 17:24 WBC RBC Hgb Hct MCV MCH MCHC RDW Plt Count Lymph % (Auto) [place] % (Auto) Lymph # [place] # Baso # Seg Neutrophils % Seg Neuts % (Manual) Lymphocytes % (Manual) Monocytes % (Manual) Seg Neutrophils # Seg Neutrophils # Man Lymphocytes # (Manual) Monocytes # (Manual) Basophils # (Manual) Percent Retic PT INR APTT Heparin Anti-Xa Level POC ABG pH 7.518 H POC ABG pCO2 POC ABG pO2 Sodium Potassium Chloride Carbon Dioxide BUN Creatinine Glucose POC Glucose 278 H 195 H Calcium Phosphorus Iron TIBC Lactate Dehydrogenase Total Creatine Kinase NT-Pro-B Natriuret Pep Total Protein Albumin Cbeqw-[id number]-Gdvoinvco Jwioh-4-Krakttyqs Beta Globulins PEP Interpretation Cholesterol LDL Cholesterol Direct Vitamin B12 Urine WBC (Auto) Urine Creatinine Crossmatch 04/03/16 04/03/16 04/03/16 00:18 04:10 04:10 WBC 14.3 H RBC Hgb Hct MCV 81 L MCH 26 L MCHC RDW Plt Count Lymph % (Auto) 9.0 L [place] % (Auto) 10.7 H Lymph # [place] # 1.5 H Baso # 0.2 H Seg Neutrophils % 78.5 H Seg Neuts % (Manual) Lymphocytes % (Manual) Monocytes % (Manual) Seg Neutrophils # 11.3 H Seg Neutrophils # Man Lymphocytes # (Manual) Monocytes # (Manual) Basophils # (Manual) Percent Retic PT INR APTT Heparin Anti-Xa Level POC ABG pH POC ABG pCO2 POC ABG pO2 Sodium 148 H Potassium Chloride 108.1 H Carbon Dioxide BUN 21 H Creatinine Glucose 227 H POC Glucose 144 H Calcium 8.2 L Phosphorus Iron TIBC Lactate Dehydrogenase Total Creatine Kinase NT-Pro-B Natriuret Pep Total Protein Albumin Gptfs-4-Jadfkcpap Telpf-4-Yroovgzuk Beta Globulins PEP Interpretation Cholesterol LDL Cholesterol Direct Vitamin B12 Urine WBC (Auto) Urine Creatinine Crossmatch 04/03/16 04/03/16 04/04/16 11:14 17:10 04:00 WBC 14.5 H RBC Hgb Hct MCV 81 L MCH 26 L MCHC RDW Plt Count Lymph % (Auto) 7.2 L [place] % (Auto) 7.6 H Lymph # 1.0 L [place] # 1.1 H Baso # Seg Neutrophils % 84.5 H Seg Neuts % (Manual) Lymphocytes % (Manual) Monocytes % (Manual) Seg Neutrophils # 12.3 H Seg Neutrophils # Man Lymphocytes # (Manual) Monocytes # (Manual) Basophils # (Manual) Percent Retic PT INR APTT Heparin Anti-Xa Level POC ABG pH POC ABG pCO2 POC ABG pO2 Sodium Potassium Chloride Carbon Dioxide BUN Creatinine Glucose POC Glucose 267 H 212 H Calcium Phosphorus Iron TIBC Lactate Dehydrogenase Total Creatine Kinase NT-Pro-B Natriuret Pep Total Protein Albumin Jyvrt-0-Ymqspqmfd Yaqkg-0-Ysfsedrbv Beta Globulins PEP Interpretation Cholesterol LDL Cholesterol Direct Vitamin B12 Urine WBC (Auto) Urine Creatinine Crossmatch 04/04/16 04/04/16 04/04/16 05:00 09:55 09:55 WBC RBC Hgb 11.5 L Hct MCV MCH MCHC RDW Plt Count Lymph % (Auto) [place] % (Auto) Lymph # [place] # Baso # Seg Neutrophils % Seg Neuts % (Manual) Lymphocytes % (Manual) Monocytes % (Manual) Seg Neutrophils # Seg Neutrophils # Man Lymphocytes # (Manual) Monocytes # (Manual) Basophils # (Manual) Percent Retic PT INR APTT 42.1 H Heparin Anti-Xa Level POC ABG pH POC ABG pCO2 POC ABG pO2 Sodium 146 H Potassium Chloride Carbon Dioxide BUN 22 H Creatinine Glucose 128 H POC Glucose Calcium Phosphorus Iron TIBC Lactate Dehydrogenase Total Creatine Kinase NT-Pro-B Natriuret Pep Total Protein Albumin Pvitd-6-Sviqvnkta Akyik-8-Oarczcopr Beta Globulins PEP Interpretation Cholesterol LDL Cholesterol Direct Vitamin B12 Urine WBC (Auto) Urine Creatinine Crossmatch 04/04/16 04/04/16 04/04/16 11:45 17:49 17:55 WBC RBC Hgb Hct MCV MCH MCHC RDW Plt Count Lymph % (Auto) [place] % (Auto) Lymph # [place] # Baso # Seg Neutrophils % Seg Neuts % (Manual) Lymphocytes % (Manual) Monocytes % (Manual) Seg Neutrophils # Seg Neutrophils # Man Lymphocytes # (Manual) Monocytes # (Manual) Basophils # (Manual) Percent Retic PT INR APTT Heparin Anti-Xa Level 1.19 H POC ABG pH POC ABG pCO2 POC ABG pO2 Sodium Potassium Chloride Carbon Dioxide BUN Creatinine Glucose POC Glucose 231 H 186 H Calcium Phosphorus Iron TIBC Lactate Dehydrogenase Total Creatine Kinase NT-Pro-B Natriuret Pep Total Protein Albumin Qhxhx-2-Cwuqxbvpy Zythv-3-Vmdlpalir Beta Globulins PEP Interpretation Cholesterol LDL Cholesterol Direct Vitamin B12 Urine WBC (Auto) Urine Creatinine Crossmatch 04/05/16 04/05/16 04/05/16 00:35 05:32 05:42 WBC RBC Hgb Hct MCV MCH MCHC RDW Plt Count Lymph % (Auto) [place] % (Auto) Lymph # [place] # Baso # Seg Neutrophils % Seg Neuts % (Manual) Lymphocytes % (Manual) Monocytes % (Manual) Seg Neutrophils # Seg Neutrophils # Man Lymphocytes # (Manual) Monocytes # (Manual) Basophils # (Manual) Percent Retic PT INR APTT Heparin Anti-Xa Level POC ABG pH 7.491 H POC ABG pCO2 POC ABG pO2 Sodium Potassium Chloride Carbon Dioxide BUN Creatinine Glucose POC Glucose 192 H 242 H Calcium Phosphorus Iron TIBC Lactate Dehydrogenase Total Creatine Kinase NT-Pro-B Natriuret Pep Total Protein Albumin Ruxqx-9-Enwzsvwng Jfnap-3-Tazdecgyl Beta Globulins PEP Interpretation Cholesterol LDL Cholesterol Direct Vitamin B12 Urine WBC (Auto) Urine Creatinine Crossmatch 04/05/16 04/05/16 04/05/16 06:20 06:20 12:19 WBC 13.9 H RBC Hgb 11.6 L Hct MCV 81 L MCH 26 L MCHC RDW Plt Count Lymph % (Auto) 9.6 L [place] % (Auto) 8.7 H Lymph # [place] # 1.2 H Baso # Seg Neutrophils % 80.9 H Seg Neuts % (Manual) Lymphocytes % (Manual) Monocytes % (Manual) Seg Neutrophils # 11.3 H Seg Neutrophils # Man Lymphocytes # (Manual) Monocytes # (Manual) Basophils # (Manual) Percent Retic PT INR APTT Heparin Anti-Xa Level POC ABG pH POC ABG pCO2 POC ABG pO2 Sodium 148 H Potassium Chloride Carbon Dioxide BUN 23 H Creatinine Glucose 242 H POC Glucose 187 H Calcium Phosphorus Iron TIBC Lactate Dehydrogenase Total Creatine Kinase NT-Pro-B Natriuret Pep Total Protein Albumin Mttly-4-Yosovnsnc Gpkws-0-Whoocbrva Beta Globulins PEP Interpretation Cholesterol LDL Cholesterol Direct Vitamin B12 Urine WBC (Auto) Urine Creatinine Crossmatch 04/05/16 04/05/16 04/06/16 17:10 23:45 05:23 WBC 13.0 H RBC Hgb Hct MCV 82 L MCH 26 L MCHC 31 L RDW Plt Count Lymph % (Auto) 6.7 L [place] % (Auto) 8.3 H Lymph # 0.9 L [place] # 1.1 H Baso # Seg Neutrophils % 84.6 H Seg Neuts % (Manual) Lymphocytes % (Manual) Monocytes % (Manual) Seg Neutrophils # 11.0 H Seg Neutrophils # Man Lymphocytes # (Manual) Monocytes # (Manual) Basophils # (Manual) Percent Retic PT INR APTT Heparin Anti-Xa Level POC ABG pH POC ABG pCO2 POC ABG pO2 Sodium Potassium Chloride Carbon Dioxide BUN Creatinine Glucose POC Glucose 169 H 202 H Calcium Phosphorus Iron TIBC Lactate Dehydrogenase Total Creatine Kinase NT-Pro-B Natriuret Pep Total Protein Albumin Waytc-7-Egfwkcese Vddmb-6-Oouzvicou Beta Globulins PEP Interpretation Cholesterol LDL Cholesterol Direct Vitamin B12 Urine WBC (Auto) Urine Creatinine Crossmatch 04/06/16 04/06/16 04/06/16 05:23 05:23 06:11 WBC RBC Hgb Hct MCV MCH MCHC RDW Plt Count Lymph % (Auto) [place] % (Auto) Lymph # [place] # Baso # Seg Neutrophils % Seg Neuts % (Manual) Lymphocytes % (Manual) Monocytes % (Manual) Seg Neutrophils # Seg Neutrophils # Man Lymphocytes # (Manual) Monocytes # (Manual) Basophils # (Manual) Percent Retic PT INR APTT Heparin Anti-Xa Level 0.21 L POC ABG pH POC ABG pCO2 POC ABG pO2 Sodium 153 H Potassium Chloride 111.3 H Carbon Dioxide BUN 22 H Creatinine Glucose 62 L POC Glucose 56 L Calcium Phosphorus Iron TIBC Lactate Dehydrogenase Total Creatine Kinase NT-Pro-B Natriuret Pep Total Protein Albumin Laaff-5-Hawnfjzde Rclam-5-Jtlfmzahi Beta Globulins PEP Interpretation Cholesterol LDL Cholesterol Direct Vitamin B12 Urine WBC (Auto) Urine Creatinine Crossmatch 04/06/16 04/06/16 04/06/16 06:52 11:36 14:58 WBC RBC Hgb Hct MCV MCH MCHC RDW Plt Count Lymph % (Auto) [place] % (Auto) Lymph # [place] # Baso # Seg Neutrophils % Seg Neuts % (Manual) Lymphocytes % (Manual) Monocytes % (Manual) Seg Neutrophils # Seg Neutrophils # Man Lymphocytes # (Manual) Monocytes # (Manual) Basophils # (Manual) Percent Retic PT INR APTT Heparin Anti-Xa Level POC ABG pH POC ABG pCO2 POC ABG pO2 Sodium Potassium Chloride Carbon Dioxide BUN Creatinine Glucose POC Glucose 206 H 139 H 147 H Calcium Phosphorus Iron TIBC Lactate Dehydrogenase Total Creatine Kinase NT-Pro-B Natriuret Pep Total Protein Albumin Tjxar-0-Tsxustrsc Kgmok-0-Skhoxqhrf Beta Globulins PEP Interpretation Cholesterol LDL Cholesterol Direct Vitamin B12 Urine WBC (Auto) Urine Creatinine Crossmatch 04/06/16 04/06/16 04/06/16 16:03 21:18 23:53 WBC RBC Hgb Hct MCV MCH MCHC RDW Plt Count Lymph % (Auto) [place] % (Auto) Lymph # [place] # Baso # Seg Neutrophils % Seg Neuts % (Manual) Lymphocytes % (Manual) Monocytes % (Manual) Seg Neutrophils # Seg Neutrophils # Man Lymphocytes # (Manual) Monocytes # (Manual) Basophils # (Manual) Percent Retic PT INR APTT Heparin Anti-Xa Level POC ABG pH POC ABG pCO2 POC ABG pO2 Sodium Potassium Chloride Carbon Dioxide BUN Creatinine Glucose POC Glucose 154 H 293 H 301 H Calcium Phosphorus Iron TIBC Lactate Dehydrogenase Total Creatine Kinase NT-Pro-B Natriuret Pep Total Protein Albumin Iedez-3-Apycpgqoo Egmqi-3-Yezqaqpzz Beta Globulins PEP Interpretation Cholesterol LDL Cholesterol Direct Vitamin B12 Urine WBC (Auto) Urine Creatinine Crossmatch 04/07/16 04/07/16 04/07/16 02:30 05:11 05:11 WBC 12.5 H RBC Hgb 11.5 L Hct MCV 82 L MCH 26 L MCHC 31 L RDW Plt Count Lymph % (Auto) [place] % (Auto) Lymph # [place] # Baso # Seg Neutrophils % Seg Neuts % (Manual) Lymphocytes % (Manual) Monocytes % (Manual) Seg Neutrophils # Seg Neutrophils # Man Lymphocytes # (Manual) Monocytes # (Manual) Basophils # (Manual) Percent Retic PT INR APTT Heparin Anti-Xa Level 0.11 L POC ABG pH POC ABG pCO2 POC ABG pO2 Sodium 150 H Potassium Chloride 109.5 H Carbon Dioxide BUN 28 H Creatinine Glucose 264 H POC Glucose Calcium Phosphorus Iron TIBC Lactate Dehydrogenase Total Creatine Kinase NT-Pro-B Natriuret Pep Total Protein Albumin Rguzh-3-Ihpqltvoe Rhmvp-3-Kndhefuvw Beta Globulins PEP Interpretation Cholesterol LDL Cholesterol Direct Vitamin B12 Urine WBC (Auto) Urine Creatinine Crossmatch 04/07/16 04/07/16 04/07/16 06:46 10:18 11:50 WBC RBC Hgb Hct MCV MCH MCHC RDW Plt Count Lymph % (Auto) [place] % (Auto) Lymph # [place] # Baso # Seg Neutrophils % Seg Neuts % (Manual) Lymphocytes % (Manual) Monocytes % (Manual) Seg Neutrophils # Seg Neutrophils # Man Lymphocytes # (Manual) Monocytes # (Manual) Basophils # (Manual) Percent Retic PT 15.1 H INR 1.20 H APTT Heparin Anti-Xa Level POC ABG pH POC ABG pCO2 POC ABG pO2 Sodium Potassium Chloride Carbon Dioxide BUN Creatinine Glucose POC Glucose 259 H 288 H Calcium Phosphorus Iron TIBC Lactate Dehydrogenase Total Creatine Kinase NT-Pro-B Natriuret Pep Total Protein Albumin Hvdns-1-Wcfbbovey Aiyka-2-Gwhrovuqb Beta Globulins PEP Interpretation Cholesterol LDL Cholesterol Direct Vitamin B12 Urine WBC (Auto) Urine Creatinine Crossmatch 04/07/16 04/08/16 04/08/16 17:58 01:25 06:49 WBC RBC Hgb Hct MCV MCH MCHC RDW Plt Count Lymph % (Auto) [place] % (Auto) Lymph # [place] # Baso # Seg Neutrophils % Seg Neuts % (Manual) Lymphocytes % (Manual) Monocytes % (Manual) Seg Neutrophils # Seg Neutrophils # Man Lymphocytes # (Manual) Monocytes # (Manual) Basophils # (Manual) Percent Retic PT INR APTT Heparin Anti-Xa Level POC ABG pH POC ABG pCO2 POC ABG pO2 Sodium 156 H Potassium Chloride 114.7 H Carbon Dioxide BUN 33 H Creatinine Glucose 169 H POC Glucose 330 H 146 H Calcium Phosphorus Iron TIBC Lactate Dehydrogenase Total Creatine Kinase NT-Pro-B Natriuret Pep Total Protein Albumin Vvovc-8-Ivqdwnxme Kglva-9-Fgkrvochm Beta Globulins PEP Interpretation Cholesterol LDL Cholesterol Direct Vitamin B12 Urine WBC (Auto) Urine Creatinine Crossmatch 04/08/16 04/08/16 04/08/16 07:34 10:28 10:28 WBC RBC Hgb Hct MCV MCH MCHC RDW Plt Count Lymph % (Auto) [place] % (Auto) Lymph # [place] # Baso # Seg Neutrophils % Seg Neuts % (Manual) Lymphocytes % (Manual) Monocytes % (Manual) Seg Neutrophils # Seg Neutrophils # Man Lymphocytes # (Manual) Monocytes # (Manual) Basophils # (Manual) Percent Retic PT 15.5 H INR 1.24 H APTT Heparin Anti-Xa Level 0.24 L POC ABG pH POC ABG pCO2 POC ABG pO2 Sodium Potassium Chloride Carbon Dioxide BUN Creatinine Glucose POC Glucose 232 H Calcium Phosphorus Iron TIBC Lactate Dehydrogenase Total Creatine Kinase NT-Pro-B Natriuret Pep Total Protein Albumin Mvfrk-6-Lbrdotvli Jkaia-4-Bpytmpoxe Beta Globulins PEP Interpretation Cholesterol LDL Cholesterol Direct Vitamin B12 Urine WBC (Auto) Urine Creatinine Crossmatch 04/08/16 04/08/16 04/09/16 11:36 15:38 00:01 WBC RBC Hgb Hct MCV MCH MCHC RDW Plt Count Lymph % (Auto) [place] % (Auto) Lymph # [place] # Baso # Seg Neutrophils % Seg Neuts % (Manual) Lymphocytes % (Manual) Monocytes % (Manual) Seg Neutrophils # Seg Neutrophils # Man Lymphocytes # (Manual) Monocytes # (Manual) Basophils # (Manual) Percent Retic PT INR APTT Heparin Anti-Xa Level POC ABG pH POC ABG pCO2 POC ABG pO2 Sodium Potassium Chloride Carbon Dioxide BUN Creatinine Glucose POC Glucose 193 H 163 H 180 H Calcium Phosphorus Iron TIBC Lactate Dehydrogenase Total Creatine Kinase NT-Pro-B Natriuret Pep Total Protein Albumin Hbagl-7-Ubxrvnrll Gvktw-7-Yrgtbkfvy Beta Globulins PEP Interpretation Cholesterol LDL Cholesterol Direct Vitamin B12 Urine WBC (Auto) Urine Creatinine Crossmatch 04/09/16 04/09/16 04/09/16 06:17 06:42 06:42 WBC RBC Hgb Hct MCV MCH MCHC RDW Plt Count Lymph % (Auto) [place] % (Auto) Lymph # [place] # Baso # Seg Neutrophils % Seg Neuts % (Manual) Lymphocytes % (Manual) Monocytes % (Manual) Seg Neutrophils # Seg Neutrophils # Man Lymphocytes # (Manual) Monocytes # (Manual) Basophils # (Manual) Percent Retic PT 17.4 H INR 1.43 H APTT Heparin Anti-Xa Level POC ABG pH POC ABG pCO2 POC ABG pO2 Sodium 153 H Potassium Chloride 113.2 H Carbon Dioxide BUN 29 H Creatinine Glucose 301 H POC Glucose 249 H Calcium 8.3 L Phosphorus Iron TIBC Lactate Dehydrogenase Total Creatine Kinase NT-Pro-B Natriuret Pep Total Protein Albumin Cbnzg-3-Cinmdseky Oxtmx-0-Nnnhlndpt Beta Globulins PEP Interpretation Cholesterol LDL Cholesterol Direct Vitamin B12 Urine WBC (Auto) Urine Creatinine Crossmatch 04/09/16 04/09/16 04/09/16 07:37 11:26 15:45 WBC RBC Hgb Hct MCV MCH MCHC RDW Plt Count Lymph % (Auto) [place] % (Auto) Lymph # [place] # Baso # Seg Neutrophils % Seg Neuts % (Manual) Lymphocytes % (Manual) Monocytes % (Manual) Seg Neutrophils # Seg Neutrophils # Man Lymphocytes # (Manual) Monocytes # (Manual) Basophils # (Manual) Percent Retic PT INR APTT Heparin Anti-Xa Level POC ABG pH POC ABG pCO2 POC ABG pO2 Sodium Potassium Chloride Carbon Dioxide BUN Creatinine Glucose POC Glucose 283 H 306 H 354 H Calcium Phosphorus Iron TIBC Lactate Dehydrogenase Total Creatine Kinase NT-Pro-B Natriuret Pep Total Protein Albumin Venzx-8-Sxhsgkdvo Slntv-5-Mnbhzxmjj Beta Globulins PEP Interpretation Cholesterol LDL Cholesterol Direct Vitamin B12 Urine WBC (Auto) Urine Creatinine Crossmatch 04/10/16 04/10/1616 00:53 07:15 07:34 WBC RBC Hgb 11.3 L Hct MCV MCH MCHC RDW Plt Count Lymph % (Auto) [place] % (Auto) Lymph # [place] # Baso # Seg Neutrophils % Seg Neuts % (Manual) Lymphocytes % (Manual) Monocytes % (Manual) Seg Neutrophils # Seg Neutrophils # Man Lymphocytes # (Manual) Monocytes # (Manual) Basophils # (Manual) Percent Retic PT INR APTT Heparin Anti-Xa Level POC ABG pH POC ABG pCO2 POC ABG pO2 Sodium Potassium Chloride Carbon Dioxide BUN Creatinine Glucose POC Glucose 323 H 311 H Calcium Phosphorus Iron TIBC Lactate Dehydrogenase Total Creatine Kinase NT-Pro-B Natriuret Pep Total Protein Albumin Pnigq-1-Ipxnlxuds Biuqq-6-Tcobkwlvo Beta Globulins PEP Interpretation Cholesterol LDL Cholesterol Direct Vitamin B12 Urine WBC (Auto) Urine Creatinine Crossmatch 04/10/16 04/10/16 04/10/16 07:34 07:34 11:25 WBC RBC Hgb Hct MCV MCH MCHC RDW Plt Count Lymph % (Auto) [place] % (Auto) Lymph # [place] # Baso # Seg Neutrophils % Seg Neuts % (Manual) Lymphocytes % (Manual) Monocytes % (Manual) Seg Neutrophils # Seg Neutrophils # Man Lymphocytes # (Manual) Monocytes # (Manual) Basophils # (Manual) Percent Retic PT 17.3 H INR 1.42 H APTT Heparin Anti-Xa Level POC ABG pH POC ABG pCO2 POC ABG pO2 Sodium 158 H Potassium Chloride 118.6 H Carbon Dioxide BUN 30 H Creatinine Glucose 330 H POC Glucose 335 H Calcium 8.3 L Phosphorus Iron TIBC Lactate Dehydrogenase Total Creatine Kinase NT-Pro-B Natriuret Pep Total Protein Albumin Vzwem-2-Eqoxxmbro Hzvsj-4-Dsipnjxzk Beta Globulins PEP Interpretation Cholesterol LDL Cholesterol Direct Vitamin B12 Urine WBC (Auto) Urine Creatinine Crossmatch 04/10/16 04/11/16 04/11/16 16:21 00:29 07:47 WBC RBC Hgb Hct MCV MCH MCHC RDW Plt Count Lymph % (Auto) [place] % (Auto) Lymph # [place] # Baso # Seg Neutrophils % Seg Neuts % (Manual) Lymphocytes % (Manual) Monocytes % (Manual) Seg Neutrophils # Seg Neutrophils # Man Lymphocytes # (Manual) Monocytes # (Manual) Basophils # (Manual) Percent Retic PT 18.4 H INR 1.53 H APTT Heparin Anti-Xa Level POC ABG pH POC ABG pCO2 POC ABG pO2 Sodium Potassium Chloride Carbon Dioxide BUN Creatinine Glucose POC Glucose 230 H 162 H Calcium Phosphorus Iron TIBC Lactate Dehydrogenase Total Creatine Kinase NT-Pro-B Natriuret Pep Total Protein Albumin Tqsev-5-Nhlkmcndr Xtrgp-7-Nwhuyucve Beta Globulins PEP Interpretation Cholesterol LDL Cholesterol Direct Vitamin B12 Urine WBC (Auto) Urine Creatinine Crossmatch 04/11/16 04/11/16 04/12/16 07:47 11:22 04:54 WBC RBC Hgb 11.0 L Hct 35.0 L MCV MCH MCHC RDW Plt Count Lymph % (Auto) [place] % (Auto) Lymph # [place] # Baso # Seg Neutrophils % Seg Neuts % (Manual) Lymphocytes % (Manual) Monocytes % (Manual) Seg Neutrophils # Seg Neutrophils # Man Lymphocytes # (Manual) Monocytes # (Manual) Basophils # (Manual) Percent Retic PT INR APTT Heparin Anti-Xa Level POC ABG pH POC ABG pCO2 POC ABG pO2 Sodium 155 H Potassium Chloride 114.5 H Carbon Dioxide BUN 23 H Creatinine Glucose 157 H POC Glucose 229 H Calcium Phosphorus Iron TIBC Lactate Dehydrogenase Total Creatine Kinase NT-Pro-B Natriuret Pep Total Protein Albumin Rhxnw-0-Wiflgwrgd Vvuij-9-Wteiqfkdc Beta Globulins PEP Interpretation Cholesterol LDL Cholesterol Direct Vitamin B12 Urine WBC (Auto) Urine Creatinine Crossmatch 04/12/16 04/12/16 04/12/16 04:54 04:54 05:57 WBC RBC Hgb Hct MCV MCH MCHC RDW Plt Count Lymph % (Auto) [place] % (Auto) Lymph # [place] # Baso # Seg Neutrophils % Seg Neuts % (Manual) Lymphocytes % (Manual) Monocytes % (Manual) Seg Neutrophils # Seg Neutrophils # Man Lymphocytes # (Manual) Monocytes # (Manual) Basophils # (Manual) Percent Retic PT 22.5 H INR 1.98 H APTT Heparin Anti-Xa Level 0.19 L POC ABG pH POC ABG pCO2 POC ABG pO2 Sodium 156 H Potassium Chloride 115.4 H Carbon Dioxide BUN 23 H Creatinine Glucose 143 H POC Glucose 194 H Calcium Phosphorus Iron TIBC Lactate Dehydrogenase Total Creatine Kinase NT-Pro-B Natriuret Pep Total Protein Albumin Dcihs-3-Tonawtlqe Wdpzx-6-Snjeukjeb Beta Globulins PEP Interpretation Cholesterol LDL Cholesterol Direct Vitamin B12 Urine WBC (Auto) Urine Creatinine Crossmatch 04/12/16 04/12/16 04/12/16 12:34 19:01 23:30 WBC RBC Hgb Hct MCV MCH MCHC RDW Plt Count Lymph % (Auto) [place] % (Auto) Lymph # [place] # Baso # Seg Neutrophils % Seg Neuts % (Manual) Lymphocytes % (Manual) Monocytes % (Manual) Seg Neutrophils # Seg Neutrophils # Man Lymphocytes # (Manual) Monocytes # (Manual) Basophils # (Manual) Percent Retic PT INR APTT Heparin Anti-Xa Level POC ABG pH POC ABG pCO2 POC ABG pO2 Sodium Potassium Chloride Carbon Dioxide BUN Creatinine Glucose POC Glucose 291 H 235 H 154 H Calcium Phosphorus Iron TIBC Lactate Dehydrogenase Total Creatine Kinase NT-Pro-B Natriuret Pep Total Protein Albumin Qdbxf-0-Hpdzkseqz Uaoeq-7-Dfytfcsjc Beta Globulins PEP Interpretation Cholesterol LDL Cholesterol Direct Vitamin B12 Urine WBC (Auto) Urine Creatinine Crossmatch 04/13/16 04/13/16 04/13/16 05:16 05:16 05:28 WBC RBC Hgb Hct MCV MCH MCHC RDW Plt Count Lymph % (Auto) [place] % (Auto) Lymph # [place] # Baso # Seg Neutrophils % Seg Neuts % (Manual) Lymphocytes % (Manual) Monocytes % (Manual) Seg Neutrophils # Seg Neutrophils # Man Lymphocytes # (Manual) Monocytes # (Manual) Basophils # (Manual) Percent Retic PT 27.0 H INR 2.49 H APTT Heparin Anti-Xa Level 0.20 L POC ABG pH POC ABG pCO2 POC ABG pO2 Sodium 150 H Potassium Chloride 110.5 H Carbon Dioxide BUN 21 H Creatinine Glucose 159 H POC Glucose 177 H Calcium Phosphorus Iron TIBC Lactate Dehydrogenase Total Creatine Kinase NT-Pro-B Natriuret Pep Total Protein Albumin Fssll-7-Gxehzufoz Iuqag-3-Fkiybreun Beta Globulins PEP Interpretation Cholesterol LDL Cholesterol Direct Vitamin B12 Urine WBC (Auto) Urine Creatinine Crossmatch 04/13/16 04/13/16 04/14/16 11:30 17:54 00:44 WBC RBC Hgb Hct MCV MCH MCHC RDW Plt Count Lymph % (Auto) [place] % (Auto) Lymph # [place] # Baso # Seg Neutrophils % Seg Neuts % (Manual) Lymphocytes % (Manual) Monocytes % (Manual) Seg Neutrophils # Seg Neutrophils # Man Lymphocytes # (Manual) Monocytes # (Manual) Basophils # (Manual) Percent Retic PT INR APTT Heparin Anti-Xa Level POC ABG pH POC ABG pCO2 POC ABG pO2 Sodium Potassium Chloride Carbon Dioxide BUN Creatinine Glucose POC Glucose 181 H 251 H 237 H Calcium Phosphorus Iron TIBC Lactate Dehydrogenase Total Creatine Kinase NT-Pro-B Natriuret Pep Total Protein Albumin Qzlxp-3-Wlyxpsbpg Pczvg-5-Opdvdiwjl Beta Globulins PEP Interpretation Cholesterol LDL Cholesterol Direct Vitamin B12 Urine WBC (Auto) Urine Creatinine Crossmatch 04/14/16 04/14/16 04/14/16 05:00 05:42 05:42 WBC RBC Hgb Hct MCV MCH MCHC RDW Plt Count Lymph % (Auto) [place] % (Auto) Lymph # [place] # Baso # Seg Neutrophils % Seg Neuts % (Manual) Lymphocytes % (Manual) Monocytes % (Manual) Seg Neutrophils # Seg Neutrophils # Man Lymphocytes # (Manual) Monocytes # (Manual) Basophils # (Manual) Percent Retic PT 30.3 H INR 2.88 H APTT Heparin Anti-Xa Level 0.27 L POC ABG pH POC ABG pCO2 POC ABG pO2 Sodium Potassium 3.5 L Chloride Carbon Dioxide BUN Creatinine Glucose 160 H POC Glucose Calcium 8.2 L Phosphorus Iron TIBC Lactate Dehydrogenase Total Creatine Kinase NT-Pro-B Natriuret Pep Total Protein Albumin Zhtpt-8-Hxrzdlrrl Fcjnd-1-Dnogjtokg Beta Globulins PEP Interpretation Cholesterol LDL Cholesterol Direct Vitamin B12 Urine WBC (Auto) Urine Creatinine Crossmatch 04/14/16 04/14/16 04/14/16 06:02 06:16 09:18 WBC 12.3 H RBC Hgb 11.4 L Hct MCV 82 L MCH 26 L MCHC RDW Plt Count Lymph % (Auto) [place] % (Auto) Lymph # [place] # Baso # Seg Neutrophils % Seg Neuts % (Manual) Lymphocytes % (Manual) Monocytes % (Manual) Seg Neutrophils # Seg Neutrophils # Man Lymphocytes # (Manual) Monocytes # (Manual) Basophils # (Manual) Percent Retic PT INR APTT Heparin Anti-Xa Level POC ABG pH POC ABG pCO2 POC ABG pO2 Sodium Potassium Chloride Carbon Dioxide BUN Creatinine Glucose POC Glucose 156 H 164 H Calcium Phosphorus Iron TIBC Lactate Dehydrogenase Total Creatine Kinase NT-Pro-B Natriuret Pep Total Protein Albumin Cfoxl-2-Gqwtkzbmy Hfvau-8-Dmlosgrlq Beta Globulins PEP Interpretation Cholesterol LDL Cholesterol Direct Vitamin B12 Urine WBC (Auto) Urine Creatinine Crossmatch 12/04/15/16 04/15/16 13:58 01:07 06:04 WBC RBC Hgb Hct MCV MCH MCHC RDW Plt Count Lymph % (Auto) [place] % (Auto) Lymph # [place] # Baso # Seg Neutrophils % Seg Neuts % (Manual) Lymphocytes % (Manual) Monocytes % (Manual) Seg Neutrophils # Seg Neutrophils # Man Lymphocytes # (Manual) Monocytes # (Manual) Basophils # (Manual) Percent Retic PT 24.9 H INR 2.25 H APTT Heparin Anti-Xa Level POC ABG pH POC ABG pCO2 POC ABG pO2 Sodium Potassium Chloride Carbon Dioxide BUN Creatinine Glucose POC Glucose 109 H 154 H Calcium Phosphorus Iron TIBC Lactate Dehydrogenase Total Creatine Kinase NT-Pro-B Natriuret Pep Total Protein Albumin Jaadh-0-Ubajeqber Jgsld-0-Flvtbenzp Beta Globulins PEP Interpretation Cholesterol LDL Cholesterol Direct Vitamin B12 Urine WBC (Auto) Urine Creatinine Crossmatch 04/15/16 04/15/16 04/16/16 06:08 12:41 00:38 WBC RBC Hgb Hct MCV MCH MCHC RDW Plt Count Lymph % (Auto) [place] % (Auto) Lymph # [place] # Baso # Seg Neutrophils % Seg Neuts % (Manual) Lymphocytes % (Manual) Monocytes % (Manual) Seg Neutrophils # Seg Neutrophils # Man Lymphocytes # (Manual) Monocytes # (Manual) Basophils # (Manual) Percent Retic PT INR APTT Heparin Anti-Xa Level POC ABG pH POC ABG pCO2 POC ABG pO2 Sodium Potassium Chloride Carbon Dioxide BUN Creatinine Glucose POC Glucose 165 H 223 H 216 H Calcium Phosphorus Iron TIBC Lactate Dehydrogenase Total Creatine Kinase NT-Pro-B Natriuret Pep Total Protein Albumin Zefzk-8-Nskdpmciq Linuz-0-Crxhcwxtt Beta Globulins PEP Interpretation Cholesterol LDL Cholesterol Direct Vitamin B12 Urine WBC (Auto) Urine Creatinine Crossmatch 04/16/16 04/16/16 04/16/16 05:45 07:09 14:00 WBC RBC Hgb Hct MCV MCH MCHC RDW Plt Count Lymph % (Auto) [place] % (Auto) Lymph # [place] # Baso # Seg Neutrophils % Seg Neuts % (Manual) Lymphocytes % (Manual) Monocytes % (Manual) Seg Neutrophils # Seg Neutrophils # Man Lymphocytes # (Manual) Monocytes # (Manual) Basophils # (Manual) Percent Retic PT 19.4 H INR 1.64 H APTT Heparin Anti-Xa Level 0.10 L POC ABG pH POC ABG pCO2 POC ABG pO2 Sodium Potassium Chloride Carbon Dioxide BUN Creatinine Glucose POC Glucose 207 H 69 L Calcium Phosphorus Iron TIBC Lactate Dehydrogenase Total Creatine Kinase NT-Pro-B Natriuret Pep Total Protein Albumin Giywc-1-[id number] Afjnv-8-[id number] Beta Globulins PEP Interpretation Cholesterol LDL Cholesterol Direct Vitamin B12 Urine WBC (Auto) Urine Creatinine Crossmatch 04/16/16 04/16/16 04/16/16 17:40 17:52 19:38 WBC RBC Hgb Hct MCV MCH MCHC RDW Plt Count Lymph % (Auto) [place] % (Auto) Lymph # [place] # Baso # Seg Neutrophils % Seg Neuts % (Manual) Lymphocytes % (Manual) Monocytes % (Manual) Seg Neutrophils # Seg Neutrophils # Man Lymphocytes # (Manual) Monocytes # (Manual) Basophils # (Manual) Percent Retic PT INR APTT Heparin Anti-Xa Level 0.26 L POC ABG pH 7.543 H 7.488 H POC ABG pCO2 26.3 L 30.3 L POC ABG pO2 55 L 203 H Sodium Potassium Chloride Carbon Dioxide BUN Creatinine Glucose POC Glucose Calcium Phosphorus Iron TIBC Lactate Dehydrogenase Total Creatine Kinase NT-Pro-B Natriuret Pep Total Protein Albumin Hpmhs-5-Ujqkdcbqd Qvyek-1-Lhtitaknj Beta Globulins PEP Interpretation Cholesterol LDL Cholesterol Direct Vitamin B12 Urine WBC (Auto) Urine Creatinine Crossmatch 04/17/16 04/17/16 04/17/16 00:04 05:10 05:36 WBC RBC Hgb Hct MCV MCH MCHC RDW Plt Count Lymph % (Auto) [place] % (Auto) Lymph # [place] # Baso # Seg Neutrophils % Seg Neuts % (Manual) Lymphocytes % (Manual) Monocytes % (Manual) Seg Neutrophils # Seg Neutrophils # Man Lymphocytes # (Manual) Monocytes # (Manual) Basophils # (Manual) Percent Retic PT INR APTT Heparin Anti-Xa Level POC ABG pH POC ABG pCO2 32.7 L POC ABG pO2 68 L Sodium Potassium Chloride Carbon Dioxide BUN Creatinine Glucose POC Glucose 113 H 161 H Calcium Phosphorus Iron TIBC Lactate Dehydrogenase Total Creatine Kinase NT-Pro-B Natriuret Pep Total Protein Albumin Rkxdy-5-Sihmhslxf Pkpor-9-Btiutyuuy Beta Globulins PEP Interpretation Cholesterol LDL Cholesterol Direct Vitamin B12 Urine WBC (Auto) Urine Creatinine Crossmatch 12/17/16 12/17/16 12/17/16 05:41 08:37 11:46 WBC RBC Hgb Hct MCV MCH MCHC RDW Plt Count Lymph % (Auto) [place] % (Auto) Lymph # [place] # Baso # Seg Neutrophils % Seg Neuts % (Manual) Lymphocytes % (Manual) Monocytes % (Manual) Seg Neutrophils # Seg Neutrophils # Man Lymphocytes # (Manual) Monocytes # (Manual) Basophils # (Manual) Percent Retic PT 17.4 H INR 1.43 H APTT Heparin Anti-Xa Level POC ABG pH POC ABG pCO2 POC ABG pO2 Sodium Potassium Chloride Carbon Dioxide BUN Creatinine Glucose POC Glucose 154 H 138 H Calcium Phosphorus Iron TIBC Lactate Dehydrogenase Total Creatine Kinase NT-Pro-B Natriuret Pep Total Protein Albumin Tqecg-8-Yiujymlua Srdnu-0-Eegqrbfhz Beta Globulins PEP Interpretation Cholesterol LDL Cholesterol Direct Vitamin B12 Urine WBC (Auto) Urine Creatinine Crossmatch 04/17/16 04/17/16 04/17/16 12:17 12:17 21:20 WBC 16.5 H RBC 3.31 L Hgb 8.8 L Hct 26.9 L MCV 81 L MCH 27 L MCHC RDW 15.5 H Plt Count Lymph % (Auto) [place] % (Auto) Lymph # [place] # Baso # Seg Neutrophils % Seg Neuts % (Manual) Lymphocytes % (Manual) 3.0 L Monocytes % (Manual) Seg Neutrophils # Seg Neutrophils # Man 10.1 H Lymphocytes # (Manual) 0.5 L Monocytes # (Manual) Basophils # (Manual) Percent Retic PT INR APTT Heparin Anti-Xa Level 0.14 L POC ABG pH POC ABG pCO2 POC ABG pO2 Sodium Potassium Chloride Carbon Dioxide 21 L BUN 38 H Creatinine 1.8 H D Glucose 131 H POC Glucose Calcium 7.6 L Phosphorus Iron TIBC Lactate Dehydrogenase Total Creatine Kinase NT-Pro-B Natriuret Pep Total Protein Albumin Plztl-3-Wjemdkwaa Mrakb-9-Cosbvxqtr Beta Globulins PEP Interpretation Cholesterol LDL Cholesterol Direct Vitamin B12 Urine WBC (Auto) Urine Creatinine Crossmatch 04/17/16 04/17/16 04/18/16 23:38 23:41 00:21 WBC RBC Hgb Hct MCV MCH MCHC RDW Plt Count Lymph % (Auto) [place] % (Auto) Lymph # [place] # Baso # Seg Neutrophils % Seg Neuts % (Manual) Lymphocytes % (Manual) Monocytes % (Manual) Seg Neutrophils # Seg Neutrophils # Man Lymphocytes # (Manual) Monocytes # (Manual) Basophils # (Manual) Percent Retic PT INR APTT Heparin Anti-Xa Level POC ABG pH POC ABG pCO2 POC ABG pO2 Sodium Potassium Chloride Carbon Dioxide BUN Creatinine Glucose POC Glucose < 40 L < 40 L 223 H Calcium Phosphorus Iron TIBC Lactate Dehydrogenase Total Creatine Kinase NT-Pro-B Natriuret Pep Total Protein Albumin Crjuv-4-Rpharlafu Umfxc-6-Apqhrxzoz Beta Globulins PEP Interpretation Cholesterol LDL Cholesterol Direct Vitamin B12 Urine WBC (Auto) Urine Creatinine Crossmatch 04/18/16 04/18/16 04/18/16 05:01 05:20 05:20 WBC 17.6 H RBC 3.44 L Hgb 9.1 L Hct 27.8 L MCV 81 L MCH 26 L MCHC RDW 15.5 H Plt Count Lymph % (Auto) 2.7 L [place] % (Auto) 8.3 H Lymph # 0.5 L [place] # 1.5 H Baso # Seg Neutrophils % 88.4 H Seg Neuts % (Manual) Lymphocytes % (Manual) Monocytes % (Manual) Seg Neutrophils # 15.6 H Seg Neutrophils # Man Lymphocytes # (Manual) Monocytes # (Manual) Basophils # (Manual) Percent Retic PT 17.4 H INR 1.43 H APTT Heparin Anti-Xa Level POC ABG pH 7.528 H POC ABG pCO2 27.9 L POC ABG pO2 Sodium Potassium Chloride Carbon Dioxide BUN Creatinine Glucose POC Glucose Calcium Phosphorus Iron TIBC Lactate Dehydrogenase Total Creatine Kinase NT-Pro-B Natriuret Pep Total Protein Albumin Uliwn-3-Cchxdbksf Yyoqb-6-Iecxlcjul Beta Globulins PEP Interpretation Cholesterol LDL Cholesterol Direct Vitamin B12 Urine WBC (Auto) Urine Creatinine Crossmatch 04/18/16 04/18/16 04/18/16 05:20 05:31 06:50 WBC RBC Hgb Hct MCV MCH MCHC RDW Plt Count Lymph % (Auto) [place] % (Auto) Lymph # [place] # Baso # Seg Neutrophils % Seg Neuts % (Manual) Lymphocytes % (Manual) Monocytes % (Manual) Seg Neutrophils # Seg Neutrophils # Man Lymphocytes # (Manual) Monocytes # (Manual) Basophils # (Manual) Percent Retic PT INR APTT Heparin Anti-Xa Level POC ABG pH POC ABG pCO2 POC ABG pO2 Sodium Potassium 3.4 L Chloride Carbon Dioxide 21 L BUN 22 H Creatinine Glucose POC Glucose 61 L 124 H Calcium 8.0 L Phosphorus Iron TIBC Lactate Dehydrogenase Total Creatine Kinase NT-Pro-B Natriuret Pep Total Protein Albumin Sopaj-7-Yhwczslpn Niwhz-3-Ljaueynpd Beta Globulins PEP Interpretation Cholesterol LDL Cholesterol Direct Vitamin B12 Urine WBC (Auto) Urine Creatinine Crossmatch 04/18/16 04/18/16 04/19/16 17:42 22:40 00:31 WBC RBC Hgb Hct MCV MCH MCHC RDW Plt Count Lymph % (Auto) [place] % (Auto) Lymph # [place] # Baso # Seg Neutrophils % Seg Neuts % (Manual) Lymphocytes % (Manual) Monocytes % (Manual) Seg Neutrophils # Seg Neutrophils # Man Lymphocytes # (Manual) Monocytes # (Manual) Basophils # (Manual) Percent Retic PT INR APTT Heparin Anti-Xa Level < 0.10 L POC ABG pH POC ABG pCO2 POC ABG pO2 Sodium Potassium Chloride Carbon Dioxide BUN Creatinine Glucose POC Glucose 159 H 134 H Calcium Phosphorus Iron TIBC Lactate Dehydrogenase Total Creatine Kinase NT-Pro-B Natriuret Pep Total Protein Albumin Fdmmb-3-Idqdnnkwi Wnybd-2-Tqcwphavy Beta Globulins PEP Interpretation Cholesterol LDL Cholesterol Direct Vitamin B12 Urine WBC (Auto) Urine Creatinine Crossmatch 04/19/16 04/19/16 04/19/16 04:18 04:18 04:25 WBC 19.0 H RBC 3.58 L Hgb 9.3 L Hct 28.8 L MCV 80 L MCH 26 L MCHC RDW 15.5 H Plt Count Lymph % (Auto) 2.8 L [place] % (Auto) 7.4 H Lymph # 0.5 L [place] # 1.4 H Baso # Seg Neutrophils % 89.4 H Seg Neuts % (Manual) Lymphocytes % (Manual) Monocytes % (Manual) Seg Neutrophils # 17.0 H Seg Neutrophils # Man Lymphocytes # (Manual) Monocytes # (Manual) Basophils # (Manual) Percent Retic PT INR APTT Heparin Anti-Xa Level POC ABG pH 7.527 H POC ABG pCO2 27.1 L POC ABG pO2 Sodium Potassium Chloride Carbon Dioxide BUN 22 H Creatinine Glucose 215 H POC Glucose Calcium 8.0 L Phosphorus Iron TIBC Lactate Dehydrogenase Total Creatine Kinase NT-Pro-B Natriuret Pep Total Protein Albumin Exnxi-8-Shqjykvkd Jerem-8-Aqncovyyp Beta Globulins PEP Interpretation Cholesterol LDL Cholesterol Direct Vitamin B12 Urine WBC (Auto) Urine Creatinine Crossmatch 04/19/16 04/19/16 04/19/16 05:45 08:10 14:08 WBC RBC Hgb Hct MCV MCH MCHC RDW Plt Count Lymph % (Auto) [place] % (Auto) Lymph # [place] # Baso # Seg Neutrophils % Seg Neuts % (Manual) Lymphocytes % (Manual) Monocytes % (Manual) Seg Neutrophils # Seg Neutrophils # Man Lymphocytes # (Manual) Monocytes # (Manual) Basophils # (Manual) Percent Retic PT 22.1 H INR 1.93 H APTT Heparin Anti-Xa Level 0.17 L POC ABG pH POC ABG pCO2 POC ABG pO2 Sodium Potassium Chloride Carbon Dioxide BUN Creatinine Glucose POC Glucose 196 H 318 H Calcium Phosphorus Iron TIBC Lactate Dehydrogenase Total Creatine Kinase NT-Pro-B Natriuret Pep Total Protein Albumin Xblzi-5-Zcagtlhdz Sqbaf-6-Rlhmsytyi Beta Globulins PEP Interpretation Cholesterol LDL Cholesterol Direct Vitamin B12 Urine WBC (Auto) Urine Creatinine Crossmatch 04/19/16 04/20/16 04/20/16 17:27 03:55 03:55 WBC 18.5 H RBC 3.19 L Hgb 8.4 L Hct 25.7 L MCV 80 L MCH 26 L MCHC RDW 15.9 H Plt Count Lymph % (Auto) 4.3 L [place] % (Auto) 10.1 H Lymph # 0.8 L [place] # 1.9 H Baso # Seg Neutrophils % 85.2 H Seg Neuts % (Manual) Lymphocytes % (Manual) Monocytes % (Manual) Seg Neutrophils # 15.8 H Seg Neutrophils # Man Lymphocytes # (Manual) Monocytes # (Manual) Basophils # (Manual) Percent Retic PT 22.0 H INR 1.92 H APTT Heparin Anti-Xa Level 0.14 L POC ABG pH POC ABG pCO2 POC ABG pO2 Sodium Potassium Chloride Carbon Dioxide BUN Creatinine Glucose POC Glucose 230 H Calcium Phosphorus Iron TIBC Lactate Dehydrogenase Total Creatine Kinase NT-Pro-B Natriuret Pep Total Protein Albumin Dncyn-5-Kfhyypmtn Eteav-1-Gopnmcyrg Beta Globulins PEP Interpretation Cholesterol LDL Cholesterol Direct Vitamin B12 Urine WBC (Auto) Urine Creatinine Crossmatch 04/20/16 04/20/16 04/20/16 03:55 04:16 05:52 WBC RBC Hgb Hct MCV MCH MCHC RDW Plt Count Lymph % (Auto) [place] % (Auto) Lymph # [place] # Baso # Seg Neutrophils % Seg Neuts % (Manual) Lymphocytes % (Manual) Monocytes % (Manual) Seg Neutrophils # Seg Neutrophils # Man Lymphocytes # (Manual) Monocytes # (Manual) Basophils # (Manual) Percent Retic PT INR APTT Heparin Anti-Xa Level POC ABG pH 7.474 H POC ABG pCO2 26.5 L POC ABG pO2 Sodium Potassium Chloride Carbon Dioxide 18 L BUN 38 H Creatinine 2.7 H D Glucose 159 H POC Glucose 214 H Calcium 8.0 L Phosphorus Iron TIBC Lactate Dehydrogenase Total Creatine Kinase NT-Pro-B Natriuret Pep Total Protein Albumin Pyain-1-Epfqmilpb Vulty-9-Lyhxzwvxg Beta Globulins PEP Interpretation Cholesterol LDL Cholesterol Direct Vitamin B12 Urine WBC (Auto) Urine Creatinine Crossmatch 04/20/16 04/20/16 04/20/16 10:32 11:27 11:50 WBC RBC Hgb Hct MCV MCH MCHC RDW Plt Count Lymph % (Auto) [place] % (Auto) Lymph # [place] # Baso # Seg Neutrophils % Seg Neuts % (Manual) Lymphocytes % (Manual) Monocytes % (Manual) Seg Neutrophils # Seg Neutrophils # Man Lymphocytes # (Manual) Monocytes # (Manual) Basophils # (Manual) Percent Retic PT INR APTT Heparin Anti-Xa Level POC ABG pH POC ABG pCO2 POC ABG pO2 Sodium Potassium Chloride Carbon Dioxide 20 L BUN 45 H Creatinine 3.0 H Glucose 215 H POC Glucose 248 H Calcium 8.0 L Phosphorus Iron TIBC Lactate Dehydrogenase Total Creatine Kinase NT-Pro-B Natriuret Pep Total Protein Albumin Nrapu-6-Moswifztx Lduua-2-Kblotpfux Beta Globulins PEP Interpretation Cholesterol LDL Cholesterol Direct Vitamin B12 Urine WBC (Auto) Urine Creatinine 85.5 H Crossmatch 04/20/16 04/21/16 04/21/16 16:59 00:13 04:29 WBC RBC Hgb Hct MCV MCH MCHC RDW Plt Count Lymph % (Auto) [place] % (Auto) Lymph # [place] # Baso # Seg Neutrophils % Seg Neuts % (Manual) Lymphocytes % (Manual) Monocytes % (Manual) Seg Neutrophils # Seg Neutrophils # Man Lymphocytes # (Manual) Monocytes # (Manual) Basophils # (Manual) Percent Retic PT 18.1 H INR 1.50 H APTT Heparin Anti-Xa Level 0.10 L POC ABG pH POC ABG pCO2 POC ABG pO2 Sodium Potassium Chloride Carbon Dioxide BUN Creatinine Glucose POC Glucose 312 H 287 H Calcium Phosphorus Iron TIBC Lactate Dehydrogenase Total Creatine Kinase NT-Pro-B Natriuret Pep Total Protein Albumin Qinki-3-Upbdftcde Hrtaz-0-Kryhzyvcj Beta Globulins PEP Interpretation Cholesterol LDL Cholesterol Direct Vitamin B12 Urine WBC (Auto) Urine Creatinine Crossmatch 04/21/16 04/21/16 04/21/16 04:29 04:29 04:55 WBC 15.4 H RBC 3.24 L Hgb 8.4 L Hct 25.6 L MCV 79 L MCH 26 L MCHC RDW 16.1 H Plt Count Lymph % (Auto) 6.8 L [place] % (Auto) 12.9 H Lymph # 1.0 L [place] # 2.0 H Baso # Seg Neutrophils % 79.8 H Seg Neuts % (Manual) Lymphocytes % (Manual) Monocytes % (Manual) Seg Neutrophils # 12.3 H Seg Neutrophils # Man Lymphocytes # (Manual) Monocytes # (Manual) Basophils # (Manual) Percent Retic PT INR APTT Heparin Anti-Xa Level POC ABG pH 7.512 H POC ABG pCO2 25.4 L POC ABG pO2 Sodium 135 L Potassium Chloride Carbon Dioxide 18 L BUN 57 H Creatinine 3.9 H Glucose 202 H POC Glucose Calcium 8.0 L Phosphorus Iron TIBC Lactate Dehydrogenase Total Creatine Kinase NT-Pro-B Natriuret Pep Total Protein Albumin Cbakb-5-Dgzkvadfv Wxpsa-9-Nsdkjmbsz Beta Globulins PEP Interpretation Cholesterol LDL Cholesterol Direct Vitamin B12 Urine WBC (Auto) Urine Creatinine Crossmatch 04/21/16 04/21/16 04/21/16 05:20 12:08 12:16 WBC RBC Hgb Hct MCV MCH MCHC RDW Plt Count Lymph % (Auto) [place] % (Auto) Lymph # [place] # Baso # Seg Neutrophils % Seg Neuts % (Manual) Lymphocytes % (Manual) Monocytes % (Manual) Seg Neutrophils # Seg Neutrophils # Man Lymphocytes # (Manual) Monocytes # (Manual) Basophils # (Manual) Percent Retic PT INR APTT Heparin Anti-Xa Level 0.16 L POC ABG pH POC ABG pCO2 POC ABG pO2 Sodium Potassium Chloride Carbon Dioxide BUN Creatinine Glucose POC Glucose 203 H 221 H Calcium Phosphorus Iron TIBC Lactate Dehydrogenase Total Creatine Kinase NT-Pro-B Natriuret Pep Total Protein Albumin Cljqx-2-Vsawtxvcu Obkrq-6-Snhfiachd Beta Globulins PEP Interpretation Cholesterol LDL Cholesterol Direct Vitamin B12 Urine WBC (Auto) Urine Creatinine Crossmatch 04/21/16 04/22/16 04/22/16 17:22 05:01 05:20 WBC RBC Hgb Hct MCV MCH MCHC RDW Plt Count Lymph % (Auto) [place] % (Auto) Lymph # [place] # Baso # Seg Neutrophils % Seg Neuts % (Manual) Lymphocytes % (Manual) Monocytes % (Manual) Seg Neutrophils # Seg Neutrophils # Man Lymphocytes # (Manual) Monocytes # (Manual) Basophils # (Manual) Percent Retic PT 17.5 H INR 1.44 H APTT Heparin Anti-Xa Level POC ABG pH 7.460 H POC ABG pCO2 27.9 L POC ABG pO2 Sodium Potassium Chloride Carbon Dioxide BUN Creatinine Glucose POC Glucose 189 H Calcium Phosphorus Iron TIBC Lactate Dehydrogenase Total Creatine Kinase NT-Pro-B Natriuret Pep Total Protein Albumin Lwaml-8-Hcobrrhov Jlapm-5-Ztebyqknk Beta Globulins PEP Interpretation Cholesterol LDL Cholesterol Direct Vitamin B12 Urine WBC (Auto) Urine Creatinine Crossmatch 04/22/16 04/22/16 04/22/16 05:43 06:40 08:08 WBC RBC Hgb Hct MCV MCH MCHC RDW Plt Count Lymph % (Auto) [place] % (Auto) Lymph # [place] # Baso # Seg Neutrophils % Seg Neuts % (Manual) Lymphocytes % (Manual) Monocytes % (Manual) Seg Neutrophils # Seg Neutrophils # Man Lymphocytes # (Manual) Monocytes # (Manual) Basophils # (Manual) Percent Retic PT INR APTT Heparin Anti-Xa Level POC ABG pH POC ABG pCO2 POC ABG pO2 Sodium Potassium Chloride Carbon Dioxide BUN Creatinine Glucose POC Glucose 56 L 136 H 134 H Calcium Phosphorus Iron TIBC Lactate Dehydrogenase Total Creatine Kinase NT-Pro-B Natriuret Pep Total Protein Albumin Ayicv-7-Umyoeybip Eahmj-6-Khxiyulnf Beta Globulins PEP Interpretation Cholesterol LDL Cholesterol Direct Vitamin B12 Urine WBC (Auto) Urine Creatinine Crossmatch 04/22/16 04/22/16 04/22/16 11:18 12:10 18:17 WBC RBC Hgb Hct MCV MCH MCHC RDW Plt Count Lymph % (Auto) [place] % (Auto) Lymph # [place] # Baso # Seg Neutrophils % Seg Neuts % (Manual) Lymphocytes % (Manual) Monocytes % (Manual) Seg Neutrophils # Seg Neutrophils # Man Lymphocytes # (Manual) Monocytes # (Manual) Basophils # (Manual) Percent Retic PT INR APTT Heparin Anti-Xa Level 0.12 L POC ABG pH POC ABG pCO2 POC ABG pO2 Sodium Potassium Chloride Carbon Dioxide BUN Creatinine Glucose POC Glucose 142 H 227 H Calcium Phosphorus Iron TIBC Lactate Dehydrogenase Total Creatine Kinase NT-Pro-B Natriuret Pep Total Protein Albumin Gozld-8-Jxmijvwry Dketw-5-Mtmekwtjm Beta Globulins PEP Interpretation Cholesterol LDL Cholesterol Direct Vitamin B12 Urine WBC (Auto) Urine Creatinine Crossmatch 04/22/16 04/22/16 04/23/16 22:28 23:47 04:49 WBC RBC Hgb Hct MCV MCH MCHC RDW Plt Count Lymph % (Auto) [place] % (Auto) Lymph # [place] # Baso # Seg Neutrophils % Seg Neuts % (Manual) Lymphocytes % (Manual) Monocytes % (Manual) Seg Neutrophils # Seg Neutrophils # Man Lymphocytes # (Manual) Monocytes # (Manual) Basophils # (Manual) Percent Retic PT INR APTT Heparin Anti-Xa Level 0.16 L POC ABG pH POC ABG pCO2 32.6 L POC ABG pO2 122 H Sodium Potassium Chloride Carbon Dioxide BUN Creatinine Glucose POC Glucose 266 H Calcium Phosphorus Iron TIBC Lactate Dehydrogenase Total Creatine Kinase NT-Pro-B Natriuret Pep Total Protein Albumin Kpcpg-0-Letpwslqj Dcjii-8-Adwekvwmy Beta Globulins PEP Interpretation Cholesterol LDL Cholesterol Direct Vitamin B12 Urine WBC (Auto) Urine Creatinine Crossmatch 04/23/16 04/23/16 04/23/16 05:41 08:05 08:34 WBC RBC Hgb Hct MCV MCH MCHC RDW Plt Count Lymph % (Auto) [place] % (Auto) Lymph # [place] # Baso # Seg Neutrophils % Seg Neuts % (Manual) Lymphocytes % (Manual) Monocytes % (Manual) Seg Neutrophils # Seg Neutrophils # Man Lymphocytes # (Manual) Monocytes # (Manual) Basophils # (Manual) Percent Retic PT INR APTT Heparin Anti-Xa Level POC ABG pH POC ABG pCO2 POC ABG pO2 Sodium Potassium Chloride 109.5 H Carbon Dioxide 21 L BUN 23 H Creatinine Glucose 227 H POC Glucose 227 H 224 H Calcium 8.2 L Phosphorus Iron TIBC Lactate Dehydrogenase Total Creatine Kinase NT-Pro-B Natriuret Pep Total Protein Albumin Fzmza-7-Znzpfmuua Ldahn-0-Zltoycowa Beta Globulins PEP Interpretation Cholesterol LDL Cholesterol Direct Vitamin B12 Urine WBC (Auto) Urine Creatinine Crossmatch 04/23/16 04/23/16 04/23/16 10:45 11:37 22:49 WBC RBC Hgb Hct MCV MCH MCHC RDW Plt Count Lymph % (Auto) [place] % (Auto) Lymph # [place] # Baso # Seg Neutrophils % Seg Neuts % (Manual) Lymphocytes % (Manual) Monocytes % (Manual) Seg Neutrophils # Seg Neutrophils # Man Lymphocytes # (Manual) Monocytes # (Manual) Basophils # (Manual) Percent Retic PT 15.9 H INR 1.28 H APTT Heparin Anti-Xa Level 0.12 L POC ABG pH POC ABG pCO2 POC ABG pO2 Sodium Potassium Chloride Carbon Dioxide BUN Creatinine Glucose POC Glucose 256 H Calcium Phosphorus Iron TIBC Lactate Dehydrogenase Total Creatine Kinase NT-Pro-B Natriuret Pep Total Protein Albumin Qxeza-6-Gscdguyqo Uznwn-7-Mlmzzpktr Beta Globulins PEP Interpretation Cholesterol LDL Cholesterol Direct Vitamin B12 Urine WBC (Auto) Urine Creatinine Crossmatch 04/23/16 04/24/16 04/24/16 23:59 05:29 06:03 WBC RBC Hgb Hct MCV MCH MCHC RDW Plt Count Lymph % (Auto) [place] % (Auto) Lymph # [place] # Baso # Seg Neutrophils % Seg Neuts % (Manual) Lymphocytes % (Manual) Monocytes % (Manual) Seg Neutrophils # Seg Neutrophils # Man Lymphocytes # (Manual) Monocytes # (Manual) Basophils # (Manual) Percent Retic PT INR APTT Heparin Anti-Xa Level POC ABG pH 7.464 H POC ABG pCO2 32.4 L POC ABG pO2 115 H Sodium Potassium Chloride Carbon Dioxide BUN Creatinine Glucose POC Glucose 176 H 256 H Calcium Phosphorus Iron TIBC Lactate Dehydrogenase Total Creatine Kinase NT-Pro-B Natriuret Pep Total Protein Albumin Nrcha-2-Wepqkorhv Wykmi-8-Dwwctmjyx Beta Globulins PEP Interpretation Cholesterol LDL Cholesterol Direct Vitamin B12 Urine WBC (Auto) Urine Creatinine Crossmatch 04/24/16 04/24/16 04/24/16 07:59 12:10 17:17 WBC RBC Hgb Hct MCV MCH MCHC RDW Plt Count Lymph % (Auto) [place] % (Auto) Lymph # [place] # Baso # Seg Neutrophils % Seg Neuts % (Manual) Lymphocytes % (Manual) Monocytes % (Manual) Seg Neutrophils # Seg Neutrophils # Man Lymphocytes # (Manual) Monocytes # (Manual) Basophils # (Manual) Percent Retic PT INR APTT Heparin Anti-Xa Level 0.18 L POC ABG pH POC ABG pCO2 POC ABG pO2 Sodium Potassium Chloride Carbon Dioxide BUN Creatinine Glucose POC Glucose 304 H 325 H Calcium Phosphorus Iron TIBC Lactate Dehydrogenase Total Creatine Kinase NT-Pro-B Natriuret Pep Total Protein Albumin Uhdep-0-Wrnrlmvkj Vgaej-2-Atmtxuwuf Beta Globulins PEP Interpretation Cholesterol LDL Cholesterol Direct Vitamin B12 Urine WBC (Auto) Urine Creatinine Crossmatch 04/25/16 04/25/16 04/25/16 00:52 06:40 06:44 WBC RBC Hgb Hct MCV MCH MCHC RDW Plt Count Lymph % (Auto) [place] % (Auto) Lymph # [place] # Baso # Seg Neutrophils % Seg Neuts % (Manual) Lymphocytes % (Manual) Monocytes % (Manual) Seg Neutrophils # Seg Neutrophils # Man Lymphocytes # (Manual) Monocytes # (Manual) Basophils # (Manual) Percent Retic PT INR APTT Heparin Anti-Xa Level 0.11 L POC ABG pH POC ABG pCO2 POC ABG pO2 Sodium Potassium Chloride Carbon Dioxide BUN Creatinine Glucose POC Glucose 212 H 184 H Calcium Phosphorus Iron TIBC Lactate Dehydrogenase Total Creatine Kinase NT-Pro-B Natriuret Pep Total Protein Albumin Fndct-5-Zanesyawn Tboif-5-Vucywyfxe Beta Globulins PEP Interpretation Cholesterol LDL Cholesterol Direct Vitamin B12 Urine WBC (Auto) Urine Creatinine Crossmatch 04/25/16 04/25/16 04/25/16 11:40 13:26 17:27 WBC RBC Hgb Hct MCV MCH MCHC RDW Plt Count Lymph % (Auto) [place] % (Auto) Lymph # [place] # Baso # Seg Neutrophils % Seg Neuts % (Manual) Lymphocytes % (Manual) Monocytes % (Manual) Seg Neutrophils # Seg Neutrophils # Man Lymphocytes # (Manual) Monocytes # (Manual) Basophils # (Manual) Percent Retic PT INR APTT Heparin Anti-Xa Level 0.21 L POC ABG pH POC ABG pCO2 POC ABG pO2 Sodium Potassium Chloride Carbon Dioxide BUN Creatinine Glucose POC Glucose 206 H 204 H Calcium Phosphorus Iron TIBC Lactate Dehydrogenase Total Creatine Kinase NT-Pro-B Natriuret Pep Total Protein Albumin Wxpwj-1-Pcgpmrgsx Nmvho-9-Pbvwcutmx Beta Globulins PEP Interpretation Cholesterol LDL Cholesterol Direct Vitamin B12 Urine WBC (Auto) Urine Creatinine Crossmatch 04/25/16 04/26/16 04/26/16 23:46 06:31 11:51 WBC RBC Hgb Hct MCV MCH MCHC RDW Plt Count Lymph % (Auto) [place] % (Auto) Lymph # [place] # Baso # Seg Neutrophils % Seg Neuts % (Manual) Lymphocytes % (Manual) Monocytes % (Manual) Seg Neutrophils # Seg Neutrophils # Man Lymphocytes # (Manual) Monocytes # (Manual) Basophils # (Manual) Percent Retic PT INR APTT Heparin Anti-Xa Level POC ABG pH POC ABG pCO2 POC ABG pO2 Sodium Potassium Chloride Carbon Dioxide BUN Creatinine Glucose POC Glucose 162 H 148 H 178 H Calcium Phosphorus Iron TIBC Lactate Dehydrogenase Total Creatine Kinase NT-Pro-B Natriuret Pep Total Protein Albumin Swfdl-3-Wubzaxien Tddsx-0-Oxeqbiekz Beta Globulins PEP Interpretation Cholesterol LDL Cholesterol Direct Vitamin B12 Urine WBC (Auto) Urine Creatinine Crossmatch 04/26/16 04/26/16 04/26/16 12:17 16:16 18:14 WBC RBC Hgb Hct MCV MCH MCHC RDW Plt Count Lymph % (Auto) [place] % (Auto) Lymph # [place] # Baso # Seg Neutrophils % Seg Neuts % (Manual) Lymphocytes % (Manual) Monocytes % (Manual) Seg Neutrophils # Seg Neutrophils # Man Lymphocytes # (Manual) Monocytes # (Manual) Basophils # (Manual) Percent Retic PT INR APTT Heparin Anti-Xa Level POC ABG pH 7.513 H POC ABG pCO2 POC ABG pO2 76 L Sodium Potassium Chloride Carbon Dioxide BUN Creatinine Glucose POC Glucose 186 H 172 H Calcium Phosphorus Iron TIBC Lactate Dehydrogenase Total Creatine Kinase NT-Pro-B Natriuret Pep Total Protein Albumin Pvayi-9-Amfqompmc Nfeuh-6-Vtbfywvio Beta Globulins PEP Interpretation Cholesterol LDL Cholesterol Direct Vitamin B12 Urine WBC (Auto) Urine Creatinine Crossmatch 04/26/16 04/26/16 04/27/16 19:27 23:28 04:21 WBC 13.1 H RBC 2.99 L Hgb 7.8 L Hct 24.0 L MCV 81 L MCH 26 L MCHC RDW 16.7 H Plt Count 486 H Lymph % (Auto) 12.5 L [place] % (Auto) 7.9 H Lymph # [place] # 1.0 H Baso # Seg Neutrophils % 77.5 H Seg Neuts % (Manual) Lymphocytes % (Manual) Monocytes % (Manual) Seg Neutrophils # 10.2 H Seg Neutrophils # Man Lymphocytes # (Manual) Monocytes # (Manual) Basophils # (Manual) Percent Retic PT INR APTT Heparin Anti-Xa Level 0.22 L POC ABG pH POC ABG pCO2 POC ABG pO2 Sodium Potassium Chloride Carbon Dioxide BUN Creatinine Glucose POC Glucose 141 H Calcium Phosphorus Iron TIBC Lactate Dehydrogenase Total Creatine Kinase NT-Pro-B Natriuret Pep Total Protein Albumin [id number] Uposh-7-[id number] Beta Globulins PEP Interpretation Cholesterol LDL Cholesterol Direct Vitamin B12 Urine WBC (Auto) Urine Creatinine Crossmatch 04/27/16 04/27/16 04/27/16 04:21 05:46 11:04 WBC RBC Hgb Hct MCV MCH MCHC RDW Plt Count Lymph % (Auto) [place] % (Auto) Lymph # [place] # Baso # Seg Neutrophils % Seg Neuts % (Manual) Lymphocytes % (Manual) Monocytes % (Manual) Seg Neutrophils # Seg Neutrophils # Man Lymphocytes # (Manual) Monocytes # (Manual) Basophils # (Manual) Percent Retic PT INR APTT Heparin Anti-Xa Level POC ABG pH 7.489 H POC ABG pCO2 POC ABG pO2 71 L Sodium Potassium Chloride Carbon Dioxide BUN Creatinine 0.6 L Glucose 187 H POC Glucose 192 H Calcium 8.0 L Phosphorus Iron TIBC Lactate Dehydrogenase Total Creatine Kinase NT-Pro-B Natriuret Pep Total Protein 6.0 L Albumin 2.0 L Lentp-3-Tlqrrxcup Jfsey-5-Lssnvidvz Beta Globulins PEP Interpretation Cholesterol LDL Cholesterol Direct Vitamin B12 Urine WBC (Auto) Urine Creatinine Crossmatch 04/27/16 04/27/16 04/27/16 14:12 21:58 23:38 WBC RBC Hgb Hct MCV MCH MCHC RDW Plt Count Lymph % (Auto) [place] % (Auto) Lymph # [place] # Baso # Seg Neutrophils % Seg Neuts % (Manual) Lymphocytes % (Manual) Monocytes % (Manual) Seg Neutrophils # Seg Neutrophils # Man Lymphocytes # (Manual) Monocytes # (Manual) Basophils # (Manual) Percent Retic PT INR APTT Heparin Anti-Xa Level 0.24 L POC ABG pH POC ABG pCO2 POC ABG pO2 Sodium Potassium Chloride Carbon Dioxide BUN Creatinine Glucose POC Glucose 216 H 181 H Calcium Phosphorus Iron TIBC Lactate Dehydrogenase Total Creatine Kinase NT-Pro-B Natriuret Pep Total Protein Albumin Zhzyt-0-Ewkqrdjlh Krdtm-3-Pxrpracan Beta Globulins PEP Interpretation Cholesterol LDL Cholesterol Direct Vitamin B12 Urine WBC (Auto) Urine Creatinine Crossmatch 04/28/16 04/28/16 04/28/16 04:28 05:52 11:31 WBC RBC Hgb Hct MCV MCH MCHC RDW Plt Count Lymph % (Auto) [place] % (Auto) Lymph # [place] # Baso # Seg Neutrophils % Seg Neuts % (Manual) Lymphocytes % (Manual) Monocytes % (Manual) Seg Neutrophils # Seg Neutrophils # Man Lymphocytes # (Manual) Monocytes # (Manual) Basophils # (Manual) Percent Retic PT INR APTT Heparin Anti-Xa Level POC ABG pH 7.524 H POC ABG pCO2 POC ABG pO2 Sodium Potassium Chloride Carbon Dioxide BUN Creatinine Glucose POC Glucose 254 H 280 H Calcium Phosphorus Iron TIBC Lactate Dehydrogenase Total Creatine Kinase NT-Pro-B Natriuret Pep Total Protein Albumin Zhggr-2-Grkkyiqir Nuinq-4-Asizlkyiw Beta Globulins PEP Interpretation Cholesterol LDL Cholesterol Direct Vitamin B12 Urine WBC (Auto) Urine Creatinine Crossmatch 04/28/16 04/28/16 04/29/16 17:30 19:52 00:47 WBC RBC Hgb Hct MCV MCH MCHC RDW Plt Count Lymph % (Auto) [place] % (Auto) Lymph # [place] # Baso # Seg Neutrophils % Seg Neuts % (Manual) Lymphocytes % (Manual) Monocytes % (Manual) Seg Neutrophils # Seg Neutrophils # Man Lymphocytes # (Manual) Monocytes # (Manual) Basophils # (Manual) Percent Retic PT INR APTT Heparin Anti-Xa Level 0.15 L POC ABG pH POC ABG pCO2 POC ABG pO2 Sodium Potassium Chloride Carbon Dioxide BUN Creatinine Glucose POC Glucose 208 H 265 H Calcium Phosphorus Iron TIBC Lactate Dehydrogenase Total Creatine Kinase NT-Pro-B Natriuret Pep Total Protein Albumin Jddxp-6-Slqllfmee Jycom-7-Oriqgwurp Beta Globulins PEP Interpretation Cholesterol LDL Cholesterol Direct Vitamin B12 Urine WBC (Auto) Urine Creatinine Crossmatch 04/29/16 04/29/16 04/29/16 04:00 04:00 04:29 WBC 13.4 H RBC 2.56 L Hgb 6.9 L Hct 20.6 L MCV 81 L MCH 27 L MCHC RDW 16.2 H Plt Count 513 H Lymph % (Auto) 10.0 L [place] % (Auto) 12.0 H Lymph # [place] # 1.6 H Baso # Seg Neutrophils % 77.1 H Seg Neuts % (Manual) Lymphocytes % (Manual) Monocytes % (Manual) Seg Neutrophils # 10.4 H Seg Neutrophils # Man Lymphocytes # (Manual) Monocytes # (Manual) Basophils # (Manual) Percent Retic PT INR APTT Heparin Anti-Xa Level POC ABG pH 7.501 H POC ABG pCO2 POC ABG pO2 76 L Sodium Potassium Chloride Carbon Dioxide BUN 27 H Creatinine Glucose 204 H POC Glucose Calcium 8.1 L Phosphorus Iron TIBC Lactate Dehydrogenase Total Creatine Kinase NT-Pro-B Natriuret Pep Total Protein Albumin Kzkyr-2-Ppkxrrnft Hsbgb-6-Euumvqeji Beta Globulins PEP Interpretation Cholesterol LDL Cholesterol Direct Vitamin B12 Urine WBC (Auto) Urine Creatinine Crossmatch 04/29/16 04/29/16 04/29/16 06:03 10:05 10:16 WBC RBC Hgb Hct MCV MCH MCHC RDW Plt Count Lymph % (Auto) [place] % (Auto) Lymph # [place] # Baso # Seg Neutrophils % Seg Neuts % (Manual) Lymphocytes % (Manual) Monocytes % (Manual) Seg Neutrophils # Seg Neutrophils # Man Lymphocytes # (Manual) Monocytes # (Manual) Basophils # (Manual) Percent Retic 3.68 H PT INR APTT Heparin Anti-Xa Level POC ABG pH POC ABG pCO2 POC ABG pO2 Sodium Potassium Chloride Carbon Dioxide BUN Creatinine Glucose POC Glucose 192 H Calcium Phosphorus Iron TIBC Lactate Dehydrogenase Total Creatine Kinase NT-Pro-B Natriuret Pep Total Protein Albumin Abrcv-7-Igrjvatpr Flckt-6-Pxckkmbni Beta Globulins PEP Interpretation Cholesterol LDL Cholesterol Direct Vitamin B12 Urine WBC (Auto) Urine Creatinine Crossmatch See Detail 04/29/16 04/29/16 04/29/16 10:16 10:16 11:23 WBC RBC Hgb Hct MCV MCH MCHC RDW Plt Count Lymph % (Auto) [place] % (Auto) Lymph # [place] # Baso # Seg Neutrophils % Seg Neuts % (Manual) Lymphocytes % (Manual) Monocytes % (Manual) Seg Neutrophils # Seg Neutrophils # Man Lymphocytes # (Manual) Monocytes # (Manual) Basophils # (Manual) Percent Retic PT INR APTT Heparin Anti-Xa Level POC ABG pH POC ABG pCO2 POC ABG pO2 Sodium Potassium Chloride Carbon Dioxide BUN Creatinine Glucose POC Glucose 116 H Calcium Phosphorus Iron 10 L TIBC 138 L Lactate Dehydrogenase 204 H Total Creatine Kinase NT-Pro-B Natriuret Pep Total Protein Albumin Oxgeu-9-Hsjufysto Itwma-6-Cmsqoiqyz Beta Globulins PEP Interpretation Cholesterol LDL Cholesterol Direct Vitamin B12 1005 H Urine WBC (Auto) Urine Creatinine Crossmatch 04/29/16 04/29/16 04/30/16 17:34 23:19 03:19 WBC RBC Hgb 9.0 L Hct 26.7 L D MCV MCH MCHC RDW Plt Count Lymph % (Auto) [place] % (Auto) Lymph # [place] # Baso # Seg Neutrophils % Seg Neuts % (Manual) Lymphocytes % (Manual) Monocytes % (Manual) Seg Neutrophils # Seg Neutrophils # Man Lymphocytes # (Manual) Monocytes # (Manual) Basophils # (Manual) Percent Retic PT INR APTT Heparin Anti-Xa Level POC ABG pH POC ABG pCO2 POC ABG pO2 Sodium Potassium Chloride Carbon Dioxide BUN Creatinine Glucose POC Glucose 142 H 242 H Calcium Phosphorus Iron TIBC Lactate Dehydrogenase Total Creatine Kinase NT-Pro-B Natriuret Pep Total Protein Albumin Nqiuf-6-Oztculdsz Vmpxi-6-Rilbdjhyu Beta Globulins PEP Interpretation Cholesterol LDL Cholesterol Direct Vitamin B12 Urine WBC (Auto) Urine Creatinine Crossmatch 04/30/16 04/30/16 04/30/16 04:10 04:10 04:32 WBC 13.8 H RBC 3.54 L Hgb 9.3 L Hct 29.1 L MCV 82 L MCH 26 L MCHC RDW 16.5 H Plt Count 535 H Lymph % (Auto) 7.5 L [place] % (Auto) 13.8 H Lymph # 1.0 L [place] # 1.9 H Baso # Seg Neutrophils % 78.0 H Seg Neuts % (Manual) Lymphocytes % (Manual) Monocytes % (Manual) Seg Neutrophils # 10.7 H Seg Neutrophils # Man Lymphocytes # (Manual) Monocytes # (Manual) Basophils # (Manual) Percent Retic PT INR APTT Heparin Anti-Xa Level POC ABG pH 7.519 H POC ABG pCO2 33.6 L POC ABG pO2 79 L Sodium 146 H Potassium Chloride Carbon Dioxide BUN Creatinine 0.7 L Glucose 242 H POC Glucose Calcium 8.3 L Phosphorus Iron TIBC Lactate Dehydrogenase Total Creatine Kinase NT-Pro-B Natriuret Pep Total Protein Albumin Oukan-6-Wzofvkfyz Bloys-4-Nkqiutmkj Beta Globulins PEP Interpretation Cholesterol LDL Cholesterol Direct Vitamin B12 Urine WBC (Auto) Urine Creatinine Crossmatch 04/30/16 04/30/16 04/30/16 05:33 11:23 17:26 WBC RBC Hgb Hct MCV MCH MCHC RDW Plt Count Lymph % (Auto) [place] % (Auto) Lymph # [place] # Baso # Seg Neutrophils % Seg Neuts % (Manual) Lymphocytes % (Manual) Monocytes % (Manual) Seg Neutrophils # Seg Neutrophils # Man Lymphocytes # (Manual) Monocytes # (Manual) Basophils # (Manual) Percent Retic PT INR APTT Heparin Anti-Xa Level POC ABG pH POC ABG pCO2 POC ABG pO2 Sodium Potassium Chloride Carbon Dioxide BUN Creatinine Glucose POC Glucose 242 H 305 H 281 H Calcium Phosphorus Iron TIBC Lactate Dehydrogenase Total Creatine Kinase NT-Pro-B Natriuret Pep Total Protein Albumin Mjuhc-9-Rvjlkezon Nqitb-8-Pxfdesona Beta Globulins PEP Interpretation Cholesterol LDL Cholesterol Direct Vitamin B12 Urine WBC (Auto) Urine Creatinine Crossmatch 04/30/16 05/01/16 05/01/16 23:53 04:00 04:00 WBC 15.9 H RBC 2.99 L Hgb 7.9 L Hct 24.4 L MCV 82 L MCH 26 L MCHC RDW 16.9 H Plt Count 481 H Lymph % (Auto) 9.3 L [place] % (Auto) 15.0 H Lymph # [place] # 2.4 H Baso # Seg Neutrophils % 74.9 H Seg Neuts % (Manual) Lymphocytes % (Manual) Monocytes % (Manual) Seg Neutrophils # 11.9 H Seg Neutrophils # Man Lymphocytes # (Manual) Monocytes # (Manual) Basophils # (Manual) Percent Retic PT INR APTT Heparin Anti-Xa Level POC ABG pH POC ABG pCO2 POC ABG pO2 Sodium 147 H Potassium Chloride 107.8 H Carbon Dioxide BUN 22 H Creatinine 0.7 L Glucose 229 H POC Glucose 207 H Calcium 8.2 L Phosphorus Iron TIBC Lactate Dehydrogenase Total Creatine Kinase NT-Pro-B Natriuret Pep Total Protein Albumin Pnpqh-8-Yddawpscg Jhpvs-6-Uuzhwtqrr Beta Globulins PEP Interpretation Cholesterol LDL Cholesterol Direct Vitamin B12 Urine WBC (Auto) Urine Creatinine Crossmatch 05/01/16 05/01/16 05/01/16 05:12 07:41 12:33 WBC RBC Hgb Hct MCV MCH MCHC RDW Plt Count Lymph % (Auto) [place] % (Auto) Lymph # [place] # Baso # Seg Neutrophils % Seg Neuts % (Manual) Lymphocytes % (Manual) Monocytes % (Manual) Seg Neutrophils # Seg Neutrophils # Man Lymphocytes # (Manual) Monocytes # (Manual) Basophils # (Manual) Percent Retic PT INR APTT Heparin Anti-Xa Level 0.16 L POC ABG pH POC ABG pCO2 POC ABG pO2 Sodium Potassium Chloride Carbon Dioxide BUN Creatinine Glucose POC Glucose 284 H 186 H Calcium Phosphorus Iron TIBC Lactate Dehydrogenase Total Creatine Kinase NT-Pro-B Natriuret Pep Total Protein Albumin Imtpf-4-Ygbuiznsw Gejyi-8-Rbxbuwyfm Beta Globulins PEP Interpretation Cholesterol LDL Cholesterol Direct Vitamin B12 Urine WBC (Auto) Urine Creatinine Crossmatch 05/01/16 05/01/16 05/02/16 17:24 23:19 04:48 WBC 17.2 H RBC 3.09 L Hgb 8.1 L Hct 25.5 L MCV 83 L MCH 26 L MCHC RDW 17.3 H Plt Count 507 H Lymph % (Auto) 8.0 L [place] % (Auto) 13.6 H Lymph # [place] # 2.3 H Baso # Seg Neutrophils % 77.5 H Seg Neuts % (Manual) Lymphocytes % (Manual) Monocytes % (Manual) Seg Neutrophils # 13.4 H Seg Neutrophils # Man Lymphocytes # (Manual) Monocytes # (Manual) Basophils # (Manual) Percent Retic PT INR APTT Heparin Anti-Xa Level POC ABG pH POC ABG pCO2 POC ABG pO2 Sodium Potassium Chloride Carbon Dioxide BUN Creatinine Glucose POC Glucose 171 H 132 H Calcium Phosphorus Iron TIBC Lactate Dehydrogenase Total Creatine Kinase NT-Pro-B Natriuret Pep Total Protein Albumin Ylgpo-6-Igsjcwlcx Jgueb-8-Wtnquukwf Beta Globulins PEP Interpretation Cholesterol LDL Cholesterol Direct Vitamin B12 Urine WBC (Auto) Urine Creatinine Crossmatch 05/02/16 05/02/16 05/02/16 04:48 04:48 05:42 WBC RBC Hgb Hct MCV MCH MCHC RDW Plt Count Lymph % (Auto) [place] % (Auto) Lymph # [place] # Baso # Seg Neutrophils % Seg Neuts % (Manual) Lymphocytes % (Manual) Monocytes % (Manual) Seg Neutrophils # Seg Neutrophils # Man Lymphocytes # (Manual) Monocytes # (Manual) Basophils # (Manual) Percent Retic PT INR APTT Heparin Anti-Xa Level 0.19 L POC ABG pH POC ABG pCO2 POC ABG pO2 Sodium 149 H Potassium Chloride 109.9 H Carbon Dioxide BUN 24 H Creatinine Glucose 224 H POC Glucose 253 H Calcium 8.2 L Phosphorus Iron TIBC Lactate Dehydrogenase Total Creatine Kinase NT-Pro-B Natriuret Pep Total Protein Albumin Fslgp-8-Eaageymcj Hxjnw-0-Owegmjdfg Beta Globulins PEP Interpretation Cholesterol LDL Cholesterol Direct Vitamin B12 Urine WBC (Auto) Urine Creatinine Crossmatch 05/02/16 05/02/16 05/02/16 12:01 16:40 23:35 WBC RBC Hgb Hct MCV MCH MCHC RDW Plt Count Lymph % (Auto) [place] % (Auto) Lymph # [place] # Baso # Seg Neutrophils % Seg Neuts % (Manual) Lymphocytes % (Manual) Monocytes % (Manual) Seg Neutrophils # Seg Neutrophils # Man Lymphocytes # (Manual) Monocytes # (Manual) Basophils # (Manual) Percent Retic PT INR APTT Heparin Anti-Xa Level POC ABG pH POC ABG pCO2 POC ABG pO2 Sodium Potassium Chloride Carbon Dioxide BUN Creatinine Glucose POC Glucose 197 H 126 H 303 H Calcium Phosphorus Iron TIBC Lactate Dehydrogenase Total Creatine Kinase NT-Pro-B Natriuret Pep Total Protein Albumin Tmsne-6-Lxtvqtcej Fsfcr-4-Vmfwhjkka Beta Globulins PEP Interpretation Cholesterol LDL Cholesterol Direct Vitamin B12 Urine WBC (Auto) Urine Creatinine Crossmatch 05/03/16 05/03/16 05/03/16 04:31 04:31 04:31 WBC 19.1 H RBC 3.15 L Hgb 8.6 L Hct 25.7 L MCV 82 L MCH MCHC RDW 17.4 H Plt Count 525 H Lymph % (Auto) [place] % (Auto) Lymph # [place] # Baso # Seg Neutrophils % Seg Neuts % (Manual) Lymphocytes % (Manual) 10.0 L Monocytes % (Manual) 13.0 H Seg Neutrophils # Seg Neutrophils # Man 13.2 H Lymphocytes # (Manual) Monocytes # (Manual) 2.5 H Basophils # (Manual) 0.2 H Percent Retic PT INR APTT Heparin Anti-Xa Level 0.16 L POC ABG pH POC ABG pCO2 POC ABG pO2 Sodium 151 H Potassium Chloride 112.9 H Carbon Dioxide BUN 24 H Creatinine 0.7 L Glucose 303 H POC Glucose Calcium Phosphorus Iron TIBC Lactate Dehydrogenase Total Creatine Kinase NT-Pro-B Natriuret Pep Total Protein Albumin Oiacj-2-Nptmfckzs Xhqmz-9-Sdrtslzuy Beta Globulins PEP Interpretation Cholesterol LDL Cholesterol Direct Vitamin B12 Urine WBC (Auto) Urine Creatinine Crossmatch 05/03/16 05/03/16 05/04/16 12:08 18:05 00:11 WBC RBC Hgb Hct MCV MCH MCHC RDW Plt Count Lymph % (Auto) [place] % (Auto) Lymph # [place] # Baso # Seg Neutrophils % Seg Neuts % (Manual) Lymphocytes % (Manual) Monocytes % (Manual) Seg Neutrophils # Seg Neutrophils # Man Lymphocytes # (Manual) Monocytes # (Manual) Basophils # (Manual) Percent Retic PT INR APTT Heparin Anti-Xa Level POC ABG pH POC ABG pCO2 POC ABG pO2 Sodium Potassium Chloride Carbon Dioxide BUN Creatinine Glucose POC Glucose 452 H 370 H 374 H Calcium Phosphorus Iron TIBC Lactate Dehydrogenase Total Creatine Kinase NT-Pro-B Natriuret Pep Total Protein Albumin Ujtkw-7-Vrcdmzkrt Xckrk-1-Txmrwjezm Beta Globulins PEP Interpretation Cholesterol LDL Cholesterol Direct Vitamin B12 Urine WBC (Auto) Urine Creatinine Crossmatch 05/04/16 05/04/16 05/04/16 04:31 04:31 04:31 WBC 19.8 H RBC 2.90 L Hgb 7.8 L Hct 23.8 L MCV 82 L MCH 27 L MCHC RDW 17.9 H Plt Count 504 H Lymph % (Auto) [place] % (Auto) Lymph # [place] # Baso # Seg Neutrophils % Seg Neuts % (Manual) Lymphocytes % (Manual) 11.0 L Monocytes % (Manual) 8.0 H Seg Neutrophils # Seg Neutrophils # Man 13.3 H Lymphocytes # (Manual) Monocytes # (Manual) 1.6 H Basophils # (Manual) Percent Retic PT INR APTT Heparin Anti-Xa Level 0.15 L POC ABG pH POC ABG pCO2 POC ABG pO2 Sodium 146 H Potassium Chloride Carbon Dioxide BUN 30 H Creatinine 0.7 L Glucose 321 H POC Glucose Calcium 8.3 L Phosphorus Iron TIBC Lactate Dehydrogenase Total Creatine Kinase NT-Pro-B Natriuret Pep Total Protein Albumin Vobrk-1-Jjrtqswye Yaeig-5-Lajoybmlh Beta Globulins PEP Interpretation Cholesterol LDL Cholesterol Direct Vitamin B12 Urine WBC (Auto) Urine Creatinine Crossmatch 05/04/16 05/04/16 05/04/16 10:20 11:57 17:36 WBC RBC Hgb Hct MCV MCH MCHC RDW Plt Count Lymph % (Auto) [place] % (Auto) Lymph # [place] # Baso # Seg Neutrophils % Seg Neuts % (Manual) Lymphocytes % (Manual) Monocytes % (Manual) Seg Neutrophils # Seg Neutrophils # Man Lymphocytes # (Manual) Monocytes # (Manual) Basophils # (Manual) Percent Retic PT INR APTT Heparin Anti-Xa Level POC ABG pH POC ABG pCO2 POC ABG pO2 Sodium Potassium Chloride Carbon Dioxide BUN Creatinine Glucose POC Glucose 303 H 271 H Calcium Phosphorus Iron TIBC Lactate Dehydrogenase Total Creatine Kinase NT-Pro-B Natriuret Pep Total Protein Albumin Aqhaw-0-Xnwohalry Ektab-1-Zxxbsthfi Beta Globulins PEP Interpretation Cholesterol LDL Cholesterol Direct Vitamin B12 Urine WBC (Auto) > 182.0 H Urine Creatinine Crossmatch 05/04/16 05/05/16 05/05/16 23:53 04:13 04:13 WBC 20.9 H RBC 2.92 L Hgb 7.6 L Hct 23.9 L MCV 82 L MCH 26 L MCHC RDW 17.9 H Plt Count 526 H Lymph % (Auto) [place] % (Auto) Lymph # [place] # Baso # Seg Neutrophils % Seg Neuts % (Manual) 93.0 H Lymphocytes % (Manual) 2.0 L Monocytes % (Manual) Seg Neutrophils # Seg Neutrophils # Man 19.4 H Lymphocytes # (Manual) 0.4 L Monocytes # (Manual) Basophils # (Manual) Percent Retic PT INR APTT Heparin Anti-Xa Level POC ABG pH POC ABG pCO2 POC ABG pO2 Sodium 146 H Potassium Chloride Carbon Dioxide BUN 30 H Creatinine 0.7 L Glucose 250 H POC Glucose 235 H Calcium 8.1 L Phosphorus Iron TIBC Lactate Dehydrogenase Total Creatine Kinase NT-Pro-B Natriuret Pep Total Protein Albumin Bwlql-6-Wsemupffu Xvmxr-2-Wkyaxwwgg Beta Globulins PEP Interpretation Cholesterol LDL Cholesterol Direct Vitamin B12 Urine WBC (Auto) Urine Creatinine Crossmatch 05/05/16 05/05/16 05/05/16 05:27 07:36 12:06 WBC RBC Hgb Hct MCV MCH MCHC RDW Plt Count Lymph % (Auto) [place] % (Auto) Lymph # [place] # Baso # Seg Neutrophils % Seg Neuts % (Manual) Lymphocytes % (Manual) Monocytes % (Manual) Seg Neutrophils # Seg Neutrophils # Man Lymphocytes # (Manual) Monocytes # (Manual) Basophils # (Manual) Percent Retic PT INR APTT Heparin Anti-Xa Level < 0.10 L POC ABG pH POC ABG pCO2 POC ABG pO2 Sodium Potassium Chloride Carbon Dioxide BUN Creatinine Glucose POC Glucose 287 H 301 H Calcium Phosphorus Iron TIBC Lactate Dehydrogenase Total Creatine Kinase NT-Pro-B Natriuret Pep Total Protein Albumin Bonri-3-Bbfdaktsl Pnesa-4-Wwnrsczuo Beta Globulins PEP Interpretation Cholesterol LDL Cholesterol Direct Vitamin B12 Urine WBC (Auto) Urine Creatinine Crossmatch 05/05/16 05/05/16 05/06/16 15:58 17:30 00:10 WBC RBC Hgb Hct MCV MCH MCHC RDW Plt Count Lymph % (Auto) [place] % (Auto) Lymph # [place] # Baso # Seg Neutrophils % Seg Neuts % (Manual) Lymphocytes % (Manual) Monocytes % (Manual) Seg Neutrophils # Seg Neutrophils # Man Lymphocytes # (Manual) Monocytes # (Manual) Basophils # (Manual) Percent Retic PT INR APTT Heparin Anti-Xa Level 0.17 L POC ABG pH POC ABG pCO2 POC ABG pO2 Sodium Potassium Chloride Carbon Dioxide BUN Creatinine Glucose POC Glucose 226 H 161 H Calcium Phosphorus Iron TIBC Lactate Dehydrogenase Total Creatine Kinase NT-Pro-B Natriuret Pep Total Protein Albumin Pfcsj-4-Ojekyhwtd Kbujk-3-Oxqwqsnej Beta Globulins PEP Interpretation Cholesterol LDL Cholesterol Direct Vitamin B12 Urine WBC (Auto) Urine Creatinine Crossmatch 05/06/16 05/06/16 05/06/16 04:23 05:30 05:37 WBC RBC Hgb Hct MCV MCH MCHC RDW Plt Count Lymph % (Auto) [place] % (Auto) Lymph # [place] # Baso # Seg Neutrophils % Seg Neuts % (Manual) Lymphocytes % (Manual) Monocytes % (Manual) Seg Neutrophils # Seg Neutrophils # Man Lymphocytes # (Manual) Monocytes # (Manual) Basophils # (Manual) Percent Retic PT INR APTT Heparin Anti-Xa Level 0.15 L POC ABG pH 7.511 H POC ABG pCO2 POC ABG pO2 Sodium Potassium Chloride Carbon Dioxide BUN Creatinine Glucose POC Glucose 168 H Calcium Phosphorus Iron TIBC Lactate Dehydrogenase Total Creatine Kinase NT-Pro-B Natriuret Pep Total Protein Albumin Epeoz-4-Fpqezjqvg Tbbqc-3-Kdtawcuaw Beta Globulins PEP Interpretation Cholesterol LDL Cholesterol Direct Vitamin B12 Urine WBC (Auto) Urine Creatinine Crossmatch 05/06/16 05/06/16 05/07/16 12:48 17:22 00:04 WBC RBC Hgb Hct MCV MCH MCHC RDW Plt Count Lymph % (Auto) [place] % (Auto) Lymph # [place] # Baso # Seg Neutrophils % Seg Neuts % (Manual) Lymphocytes % (Manual) Monocytes % (Manual) Seg Neutrophils # Seg Neutrophils # Man Lymphocytes # (Manual) Monocytes # (Manual) Basophils # (Manual) Percent Retic PT INR APTT Heparin Anti-Xa Level POC ABG pH POC ABG pCO2 POC ABG pO2 Sodium Potassium Chloride Carbon Dioxide BUN Creatinine Glucose POC Glucose 206 H 160 H 164 H Calcium Phosphorus Iron TIBC Lactate Dehydrogenase Total Creatine Kinase NT-Pro-B Natriuret Pep Total Protein Albumin Ffedm-0-Qgeadwsdj Isujl-0-Fypydhsrf Beta Globulins PEP Interpretation Cholesterol LDL Cholesterol Direct Vitamin B12 Urine WBC (Auto) Urine Creatinine Crossmatch 05/07/16 05/07/16 05/07/16 04:02 05:50 11:30 WBC RBC Hgb Hct MCV MCH MCHC RDW Plt Count Lymph % (Auto) [place] % (Auto) Lymph # [place] # Baso # Seg Neutrophils % Seg Neuts % (Manual) Lymphocytes % (Manual) Monocytes % (Manual) Seg Neutrophils # Seg Neutrophils # Man Lymphocytes # (Manual) Monocytes # (Manual) Basophils # (Manual) Percent Retic PT INR APTT Heparin Anti-Xa Level 0.15 L POC ABG pH POC ABG pCO2 POC ABG pO2 Sodium Potassium Chloride Carbon Dioxide BUN Creatinine Glucose POC Glucose 177 H 240 H Calcium Phosphorus Iron TIBC Lactate Dehydrogenase Total Creatine Kinase NT-Pro-B Natriuret Pep Total Protein Albumin Hzaug-7-Hsrqecwfg Bwpqe-1-Gaxlnmree Beta Globulins PEP Interpretation Cholesterol LDL Cholesterol Direct Vitamin B12 Urine WBC (Auto) Urine Creatinine Crossmatch 05/07/16 05/07/16 05/07/16 12:46 17:57 23:54 WBC 20.8 H RBC 2.86 L Hgb 7.6 L Hct 23.3 L MCV 81 L MCH 26 L MCHC RDW 17.9 H Plt Count 559 H Lymph % (Auto) [place] % (Auto) Lymph # [place] # Baso # Seg Neutrophils % Seg Neuts % (Manual) Lymphocytes % (Manual) Monocytes % (Manual) Seg Neutrophils # Seg Neutrophils # Man Lymphocytes # (Manual) Monocytes # (Manual) Basophils # (Manual) Percent Retic PT INR APTT Heparin Anti-Xa Level POC ABG pH POC ABG pCO2 POC ABG pO2 Sodium Potassium Chloride Carbon Dioxide BUN Creatinine Glucose POC Glucose 279 H 201 H Calcium Phosphorus Iron TIBC Lactate Dehydrogenase Total Creatine Kinase NT-Pro-B Natriuret Pep Total Protein Albumin Pstbl-6-Dvwfokmrf Coajt-8-Sdqljbths Beta Globulins PEP Interpretation Cholesterol LDL Cholesterol Direct Vitamin B12 Urine WBC (Auto) Urine Creatinine Crossmatch 05/08/16 05/08/16 05/08/16 04:04 05:39 12:09 WBC RBC Hgb Hct MCV MCH MCHC RDW Plt Count Lymph % (Auto) [place] % (Auto) Lymph # [place] # Baso # Seg Neutrophils % Seg Neuts % (Manual) Lymphocytes % (Manual) Monocytes % (Manual) Seg Neutrophils # Seg Neutrophils # Man Lymphocytes # (Manual) Monocytes # (Manual) Basophils # (Manual) Percent Retic PT INR APTT Heparin Anti-Xa Level 0.20 L POC ABG pH POC ABG pCO2 POC ABG pO2 Sodium Potassium Chloride Carbon Dioxide BUN Creatinine Glucose POC Glucose 153 H 188 H Calcium Phosphorus Iron TIBC Lactate Dehydrogenase Total Creatine Kinase NT-Pro-B Natriuret Pep Total Protein Albumin Synwi-9-Pxjdfydcx Wrban-1-Lqdmdwkiu Beta Globulins PEP Interpretation Cholesterol LDL Cholesterol Direct Vitamin B12 Urine WBC (Auto) Urine Creatinine Crossmatch 05/08/16 05/08/16 05/08/16 17:44 17:49 18:51 WBC RBC Hgb Hct MCV MCH MCHC RDW Plt Count Lymph % (Auto) [place] % (Auto) Lymph # [place] # Baso # Seg Neutrophils % Seg Neuts % (Manual) Lymphocytes % (Manual) Monocytes % (Manual) Seg Neutrophils # Seg Neutrophils # Man Lymphocytes # (Manual) Monocytes # (Manual) Basophils # (Manual) Percent Retic PT INR APTT Heparin Anti-Xa Level POC ABG pH POC ABG pCO2 POC ABG pO2 Sodium Potassium Chloride Carbon Dioxide BUN Creatinine Glucose POC Glucose 56 L 61 L 135 H Calcium Phosphorus Iron TIBC Lactate Dehydrogenase Total Creatine Kinase NT-Pro-B Natriuret Pep Total Protein Albumin Pbyal-8-Ncwuiesoq Tsuwd-6-Ctiyhejxx Beta Globulins PEP Interpretation Cholesterol LDL Cholesterol Direct Vitamin B12 Urine WBC (Auto) Urine Creatinine Crossmatch 05/09/16 05/09/16 05/09/16 00:14 04:07 05:18 WBC RBC Hgb Hct MCV MCH MCHC RDW Plt Count Lymph % (Auto) [place] % (Auto) Lymph # [place] # Baso # Seg Neutrophils % Seg Neuts % (Manual) Lymphocytes % (Manual) Monocytes % (Manual) Seg Neutrophils # Seg Neutrophils # Man Lymphocytes # (Manual) Monocytes # (Manual) Basophils # (Manual) Percent Retic PT INR APTT Heparin Anti-Xa Level 0.21 L POC ABG pH POC ABG pCO2 POC ABG pO2 Sodium Potassium Chloride Carbon Dioxide BUN Creatinine Glucose POC Glucose 151 H 215 H Calcium Phosphorus Iron TIBC Lactate Dehydrogenase Total Creatine Kinase NT-Pro-B Natriuret Pep Total Protein Albumin Cozvp-6-Uxftvblxe Algkk-1-Acoghbwpm Beta Globulins PEP Interpretation Cholesterol LDL Cholesterol Direct Vitamin B12 Urine WBC (Auto) Urine Creatinine Crossmatch 05/09/16 05/09/16 05/09/16 12:27 16:39 17:30 WBC RBC Hgb 6.4 L Hct 20.2 L MCV MCH MCHC RDW Plt Count Lymph % (Auto) [place] % (Auto) Lymph # [place] # Baso # Seg Neutrophils % Seg Neuts % (Manual) Lymphocytes % (Manual) Monocytes % (Manual) Seg Neutrophils # Seg Neutrophils # Man Lymphocytes # (Manual) Monocytes # (Manual) Basophils # (Manual) Percent Retic PT INR APTT Heparin Anti-Xa Level POC ABG pH POC ABG pCO2 POC ABG pO2 Sodium Potassium Chloride Carbon Dioxide BUN Creatinine Glucose POC Glucose 291 H 220 H Calcium Phosphorus Iron TIBC Lactate Dehydrogenase Total Creatine Kinase NT-Pro-B Natriuret Pep Total Protein Albumin Ewqsj-3-Lgysdeefr Tdwed-1-Ennmqlwho Beta Globulins PEP Interpretation Cholesterol LDL Cholesterol Direct Vitamin B12 Urine WBC (Auto) Urine Creatinine Crossmatch 05/09/16 05/09/16 05/10/16 19:47 23:57 03:55 WBC 16.9 H RBC 3.20 L Hgb 8.6 L Hct 26.7 L D MCV 83 L MCH 27 L MCHC RDW 17.5 H Plt Count 488 H Lymph % (Auto) [place] % (Auto) Lymph # [place] # Baso # Seg Neutrophils % Seg Neuts % (Manual) 76.0 H Lymphocytes % (Manual) 9.0 L Monocytes % (Manual) 10.0 H Seg Neutrophils # Seg Neutrophils # Man 12.8 H Lymphocytes # (Manual) Monocytes # (Manual) 1.7 H Basophils # (Manual) Percent Retic PT INR APTT Heparin Anti-Xa Level POC ABG pH POC ABG pCO2 POC ABG pO2 Sodium Potassium Chloride Carbon Dioxide BUN Creatinine Glucose POC Glucose 217 H Calcium Phosphorus Iron TIBC Lactate Dehydrogenase Total Creatine Kinase NT-Pro-B Natriuret Pep Total Protein Albumin Nbdkc-4-Kusmopadn Rigxh-5-Kliudztkz Beta Globulins PEP Interpretation Cholesterol LDL Cholesterol Direct Vitamin B12 Urine WBC (Auto) Urine Creatinine Crossmatch See Detail 05/10/16 05/10/16 05/10/16 05:05 11:49 12:54 WBC RBC Hgb 9.1 L Hct 28.2 L MCV MCH MCHC RDW Plt Count Lymph % (Auto) [place] % (Auto) Lymph # [place] # Baso # Seg Neutrophils % Seg Neuts % (Manual) Lymphocytes % (Manual) Monocytes % (Manual) Seg Neutrophils # Seg Neutrophils # Man Lymphocytes # (Manual) Monocytes # (Manual) Basophils # (Manual) Percent Retic PT INR APTT Heparin Anti-Xa Level POC ABG pH POC ABG pCO2 POC ABG pO2 Sodium Potassium Chloride Carbon Dioxide BUN Creatinine Glucose POC Glucose 182 H 237 H Calcium Phosphorus Iron TIBC Lactate Dehydrogenase Total Creatine Kinase NT-Pro-B Natriuret Pep Total Protein Albumin Tgvsy-8-Igvfiiayd Xryay-9-Kqfflglkl Beta Globulins PEP Interpretation Cholesterol LDL Cholesterol Direct Vitamin B12 Urine WBC (Auto) Urine Creatinine Crossmatch 05/10/16 05/10/16 05/10/16 12:54 17:29 23:07 WBC RBC Hgb Hct MCV MCH MCHC RDW Plt Count Lymph % (Auto) [place] % (Auto) Lymph # [place] # Baso # Seg Neutrophils % Seg Neuts % (Manual) Lymphocytes % (Manual) Monocytes % (Manual) Seg Neutrophils # Seg Neutrophils # Man Lymphocytes # (Manual) Monocytes # (Manual) Basophils # (Manual) Percent Retic PT INR 1.14 H APTT Heparin Anti-Xa Level POC ABG pH POC ABG pCO2 POC ABG pO2 Sodium Potassium Chloride Carbon Dioxide BUN Creatinine Glucose POC Glucose 198 H 172 H Calcium Phosphorus Iron TIBC Lactate Dehydrogenase Total Creatine Kinase NT-Pro-B Natriuret Pep Total Protein Albumin Jjfnk-0-Pdmwxqvnu Fuuew-8-Wgyvueauv Beta Globulins PEP Interpretation Cholesterol LDL Cholesterol Direct Vitamin B12 Urine WBC (Auto) Urine Creatinine Crossmatch 05/11/16 05/11/16 05/11/16 04:16 04:16 05:13 WBC 16.1 H RBC 3.27 L Hgb 8.8 L Hct 27.7 L MCV MCH 27 L MCHC RDW 17.9 H Plt Count 475 H Lymph % (Auto) 8.9 L [place] % (Auto) 8.0 H Lymph # [place] # 1.3 H Baso # Seg Neutrophils % 81.6 H Seg Neuts % (Manual) Lymphocytes % (Manual) Monocytes % (Manual) Seg Neutrophils # 13.1 H Seg Neutrophils # Man Lymphocytes # (Manual) Monocytes # (Manual) Basophils # (Manual) Percent Retic PT INR APTT Heparin Anti-Xa Level POC ABG pH POC ABG pCO2 POC ABG pO2 Sodium 152 H Potassium Chloride 114.2 H Carbon Dioxide BUN 23 H Creatinine 0.6 L Glucose 166 H POC Glucose 173 H Calcium 8.0 L Phosphorus Iron TIBC Lactate Dehydrogenase Total Creatine Kinase NT-Pro-B Natriuret Pep Total Protein Albumin Rpgim-3-Hhopqmloa Erixz-8-Ibtfvpjju Beta Globulins PEP Interpretation Cholesterol LDL Cholesterol Direct Vitamin B12 Urine WBC (Auto) Urine Creatinine Crossmatch 05/11/16 05/11/16 05/11/16 11:30 17:20 23:53 WBC RBC Hgb Hct MCV MCH MCHC RDW Plt Count Lymph % (Auto) [place] % (Auto) Lymph # [place] # Baso # Seg Neutrophils % Seg Neuts % (Manual) Lymphocytes % (Manual) Monocytes % (Manual) Seg Neutrophils # Seg Neutrophils # Man Lymphocytes # (Manual) Monocytes # (Manual) Basophils # (Manual) Percent Retic PT INR APTT Heparin Anti-Xa Level POC ABG pH POC ABG pCO2 POC ABG pO2 Sodium Potassium Chloride Carbon Dioxide BUN Creatinine Glucose POC Glucose 192 H 147 H 164 H Calcium Phosphorus Iron TIBC Lactate Dehydrogenase Total Creatine Kinase NT-Pro-B Natriuret Pep Total Protein Albumin Pidzt-3-Egbecdtcv Saowk-0-Eiwgixbqo Beta Globulins PEP Interpretation Cholesterol LDL Cholesterol Direct Vitamin B12 Urine WBC (Auto) Urine Creatinine Crossmatch 05/12/16 05/12/16 05/12/16 05:35 07:33 11:01 WBC RBC Hgb 9.2 L Hct 29.2 L MCV MCH MCHC RDW Plt Count 503 H Lymph % (Auto) [place] % (Auto) Lymph # [place] # Baso # Seg Neutrophils % Seg Neuts % (Manual) Lymphocytes % (Manual) Monocytes % (Manual) Seg Neutrophils # Seg Neutrophils # Man Lymphocytes # (Manual) Monocytes # (Manual) Basophils # (Manual) Percent Retic PT INR APTT Heparin Anti-Xa Level POC ABG pH POC ABG pCO2 POC ABG pO2 Sodium 148 H Potassium Chloride 108.5 H Carbon Dioxide BUN Creatinine 0.5 L Glucose 146 H POC Glucose 145 H Calcium 8.2 L Phosphorus Iron TIBC Lactate Dehydrogenase Total Creatine Kinase NT-Pro-B Natriuret Pep Total Protein Albumin Qrvgp-1-Exctszzsr Bwkkj-9-Ubpzaenlz Beta Globulins PEP Interpretation Cholesterol LDL Cholesterol Direct Vitamin B12 Urine WBC (Auto) Urine Creatinine Crossmatch 05/12/16 05/12/16 05/12/16 11:44 18:15 19:33 WBC RBC Hgb Hct MCV MCH MCHC RDW Plt Count Lymph % (Auto) [place] % (Auto) Lymph # [place] # Baso # Seg Neutrophils % Seg Neuts % (Manual) Lymphocytes % (Manual) Monocytes % (Manual) Seg Neutrophils # Seg Neutrophils # Man Lymphocytes # (Manual) Monocytes # (Manual) Basophils # (Manual) Percent Retic PT INR APTT Heparin Anti-Xa Level 0.17 L POC ABG pH POC ABG pCO2 POC ABG pO2 Sodium Potassium Chloride Carbon Dioxide BUN Creatinine Glucose POC Glucose 223 H 137 H Calcium Phosphorus Iron TIBC Lactate Dehydrogenase Total Creatine Kinase NT-Pro-B Natriuret Pep Total Protein Albumin Ajyvn-5-Kjrcjeigp Plngj-5-Qlrewdzmp Beta Globulins PEP Interpretation Cholesterol LDL Cholesterol Direct Vitamin B12 Urine WBC (Auto) Urine Creatinine Crossmatch 05/12/16 05/13/16 05/13/16 23:23 04:45 05:43 WBC 18.1 H RBC 3.26 L Hgb 9.0 L Hct 29.0 L MCV MCH MCHC 31 L RDW 18.3 H Plt Count 467 H Lymph % (Auto) [place] % (Auto) Lymph # [place] # Baso # Seg Neutrophils % Seg Neuts % (Manual) 76.0 H Lymphocytes % (Manual) 11.0 L Monocytes % (Manual) 8.0 H Seg Neutrophils # Seg Neutrophils # Man 13.8 H Lymphocytes # (Manual) Monocytes # (Manual) 1.4 H Basophils # (Manual) 0.2 H Percent Retic PT INR APTT Heparin Anti-Xa Level POC ABG pH POC ABG pCO2 POC ABG pO2 Sodium Potassium Chloride Carbon Dioxide BUN Creatinine Glucose POC Glucose 114 H 136 H Calcium Phosphorus Iron TIBC Lactate Dehydrogenase Total Creatine Kinase NT-Pro-B Natriuret Pep Total Protein Albumin Ukzyt-5-Frgqjrmti Tfzql-9-Mfoidvgaz Beta Globulins PEP Interpretation Cholesterol LDL Cholesterol Direct Vitamin B12 Urine WBC (Auto) Urine Creatinine Crossmatch 05/13/16 05/13/16 05/13/16 07:04 08:13 11:22 WBC RBC Hgb Hct MCV MCH MCHC RDW Plt Count Lymph % (Auto) [place] % (Auto) Lymph # [place] # Baso # Seg Neutrophils % Seg Neuts % (Manual) Lymphocytes % (Manual) Monocytes % (Manual) Seg Neutrophils # Seg Neutrophils # Man Lymphocytes # (Manual) Monocytes # (Manual) Basophils # (Manual) Percent Retic PT INR APTT Heparin Anti-Xa Level 0.25 L POC ABG pH POC ABG pCO2 POC ABG pO2 Sodium Potassium Chloride 109.1 H Carbon Dioxide BUN Creatinine 0.5 L Glucose 131 H POC Glucose 155 H Calcium 8.1 L Phosphorus Iron TIBC Lactate Dehydrogenase Total Creatine Kinase NT-Pro-B Natriuret Pep Total Protein Albumin Pdgsq-8-Hfsvlzbto Hliqm-3-Nxrumkvlf Beta Globulins PEP Interpretation Cholesterol LDL Cholesterol Direct Vitamin B12 Urine WBC (Auto) Urine Creatinine Crossmatch 05/13/16 05/13/16 05/13/16 17:29 17:33 17:59 WBC RBC Hgb Hct MCV MCH MCHC RDW Plt Count Lymph % (Auto) [place] % (Auto) Lymph # [place] # Baso # Seg Neutrophils % Seg Neuts % (Manual) Lymphocytes % (Manual) Monocytes % (Manual) Seg Neutrophils # Seg Neutrophils # Man Lymphocytes # (Manual) Monocytes # (Manual) Basophils # (Manual) Percent Retic PT INR APTT Heparin Anti-Xa Level POC ABG pH POC ABG pCO2 POC ABG pO2 Sodium Potassium Chloride Carbon Dioxide BUN Creatinine Glucose POC Glucose 46 L < 40 L 152 H Calcium Phosphorus Iron TIBC Lactate Dehydrogenase Total Creatine Kinase NT-Pro-B Natriuret Pep Total Protein Albumin Azsqq-0-Xqtdewroj Kkwkm-6-Qdtaoqpcw Beta Globulins PEP Interpretation Cholesterol LDL Cholesterol Direct Vitamin B12 Urine WBC (Auto) Urine Creatinine Crossmatch 05/13/16 05/14/16 05/14/16 18:06 04:31 04:31 WBC 18.0 H RBC Hgb 10.2 L Hct 32.6 L MCV MCH 27 L MCHC 31 L RDW 17.5 H Plt Count 576 H Lymph % (Auto) 8.9 L [place] % (Auto) 9.3 H Lymph # [place] # 1.7 H Baso # Seg Neutrophils % 80.5 H Seg Neuts % (Manual) Lymphocytes % (Manual) Monocytes % (Manual) Seg Neutrophils # 14.5 H Seg Neutrophils # Man Lymphocytes # (Manual) Monocytes # (Manual) Basophils # (Manual) Percent Retic PT INR APTT Heparin Anti-Xa Level < 0.10 L POC ABG pH POC ABG pCO2 POC ABG pO2 Sodium Potassium Chloride Carbon Dioxide BUN Creatinine 0.6 L Glucose POC Glucose Calcium Phosphorus Iron TIBC Lactate Dehydrogenase Total Creatine Kinase NT-Pro-B Natriuret Pep Total Protein Albumin Wjpjd-2-Myvvsanqd Ovpje-0-Jkfrtkveh Beta Globulins PEP Interpretation Cholesterol LDL Cholesterol Direct Vitamin B12 Urine WBC (Auto) Urine Creatinine Crossmatch 05/14/16 05/14/16 05/14/16 05:50 11:47 17:45 WBC RBC Hgb Hct MCV MCH MCHC RDW Plt Count Lymph % (Auto) [place] % (Auto) Lymph # [place] # Baso # Seg Neutrophils % Seg Neuts % (Manual) Lymphocytes % (Manual) Monocytes % (Manual) Seg Neutrophils # Seg Neutrophils # Man Lymphocytes # (Manual) Monocytes # (Manual) Basophils # (Manual) Percent Retic PT INR APTT Heparin Anti-Xa Level POC ABG pH POC ABG pCO2 POC ABG pO2 Sodium Potassium Chloride Carbon Dioxide BUN Creatinine Glucose POC Glucose 136 H 232 H 220 H Calcium Phosphorus Iron TIBC Lactate Dehydrogenase Total Creatine Kinase NT-Pro-B Natriuret Pep Total Protein Albumin Msypx-7-Ndqjopayv Mhiqr-4-Xpwpqxuwq Beta Globulins PEP Interpretation Cholesterol LDL Cholesterol Direct Vitamin B12 Urine WBC (Auto) Urine Creatinine Crossmatch 05/14/16 05/15/16 05/15/16 22:57 04:37 04:37 WBC 16.4 H RBC 3.54 L Hgb 9.3 L Hct 29.4 L MCV 83 L MCH 26 L MCHC RDW 17.7 H Plt Count 586 H Lymph % (Auto) 6.7 L [place] % (Auto) 8.3 H Lymph # 1.1 L [place] # 1.4 H Baso # Seg Neutrophils % 83.7 H Seg Neuts % (Manual) Lymphocytes % (Manual) Monocytes % (Manual) Seg Neutrophils # 13.7 H Seg Neutrophils # Man Lymphocytes # (Manual) Monocytes # (Manual) Basophils # (Manual) Percent Retic PT INR APTT Heparin Anti-Xa Level POC ABG pH POC ABG pCO2 POC ABG pO2 Sodium Potassium Chloride Carbon Dioxide BUN Creatinine 0.6 L Glucose 220 H POC Glucose 265 H Calcium Phosphorus Iron TIBC Lactate Dehydrogenase Total Creatine Kinase NT-Pro-B Natriuret Pep Total Protein Albumin Zxvqa-0-Mztpeanza Puqib-4-Dgafcrsbx Beta Globulins PEP Interpretation Cholesterol LDL Cholesterol Direct Vitamin B12 Urine WBC (Auto) Urine Creatinine Crossmatch 05/15/16 05/15/16 05/15/16 11:43 17:08 23:47 WBC RBC Hgb Hct MCV MCH MCHC RDW Plt Count Lymph % (Auto) [place] % (Auto) Lymph # [place] # Baso # Seg Neutrophils % Seg Neuts % (Manual) Lymphocytes % (Manual) Monocytes % (Manual) Seg Neutrophils # Seg Neutrophils # Man Lymphocytes # (Manual) Monocytes # (Manual) Basophils # (Manual) Percent Retic PT INR APTT Heparin Anti-Xa Level POC ABG pH POC ABG pCO2 POC ABG pO2 Sodium Potassium Chloride Carbon Dioxide BUN Creatinine Glucose POC Glucose 290 H 180 H 130 H Calcium Phosphorus Iron TIBC Lactate Dehydrogenase Total Creatine Kinase NT-Pro-B Natriuret Pep Total Protein Albumin Osdge-0-Sovieutlz Tciap-9-Tgtvfmhdf Beta Globulins PEP Interpretation Cholesterol LDL Cholesterol Direct Vitamin B12 Urine WBC (Auto) Urine Creatinine Crossmatch 05/16/16 05/16/16 05/16/16 04:13 04:13 04:29 WBC 15.4 H RBC 3.61 L Hgb 9.4 L Hct 30.2 L MCV MCH 26 L MCHC 31 L RDW 18.0 H Plt Count 563 H Lymph % (Auto) 9.3 L [place] % (Auto) 10.1 H Lymph # [place] # 1.6 H Baso # Seg Neutrophils % 79.6 H Seg Neuts % (Manual) Lymphocytes % (Manual) Monocytes % (Manual) Seg Neutrophils # 12.3 H Seg Neutrophils # Man Lymphocytes # (Manual) Monocytes # (Manual) Basophils # (Manual) Percent Retic PT INR APTT Heparin Anti-Xa Level POC ABG pH 7.491 H POC ABG pCO2 33.9 L POC ABG pO2 Sodium 147 H Potassium Chloride 108.2 H Carbon Dioxide BUN 21 H Creatinine 0.6 L Glucose 162 H POC Glucose Calcium Phosphorus Iron TIBC Lactate Dehydrogenase Total Creatine Kinase NT-Pro-B Natriuret Pep Total Protein Albumin Duhss-1-Taoocfxfq Mwfah-9-Xmdrvlgvh Beta Globulins PEP Interpretation Cholesterol LDL Cholesterol Direct Vitamin B12 Urine WBC (Auto) Urine Creatinine Crossmatch 05/16/16 05/16/16 05/17/16 11:40 17:54 00:00 WBC RBC Hgb Hct MCV MCH MCHC RDW Plt Count Lymph % (Auto) [place] % (Auto) Lymph # [place] # Baso # Seg Neutrophils % Seg Neuts % (Manual) Lymphocytes % (Manual) Monocytes % (Manual) Seg Neutrophils # Seg Neutrophils # Man Lymphocytes # (Manual) Monocytes # (Manual) Basophils # (Manual) Percent Retic PT INR APTT Heparin Anti-Xa Level POC ABG pH POC ABG pCO2 POC ABG pO2 Sodium Potassium Chloride Carbon Dioxide BUN Creatinine Glucose POC Glucose 197 H 128 H 41 L Calcium Phosphorus Iron TIBC Lactate Dehydrogenase Total Creatine Kinase NT-Pro-B Natriuret Pep Total Protein Albumin Qunxf-6-Znzklxufg Iawwi-7-Pmhbokncd Beta Globulins PEP Interpretation Cholesterol LDL Cholesterol Direct Vitamin B12 Urine WBC (Auto) Urine Creatinine Crossmatch 05/17/16 05/17/16 05/17/16 02:29 04:42 04:42 WBC 15.1 H RBC 3.42 L Hgb 9.1 L Hct 28.1 L MCV 82 L MCH 27 L MCHC RDW 18.1 H Plt Count 500 H Lymph % (Auto) 6.4 L [place] % (Auto) 9.3 H Lymph # 1.0 L [place] # 1.4 H Baso # Seg Neutrophils % 83.2 H Seg Neuts % (Manual) Lymphocytes % (Manual) Monocytes % (Manual) Seg Neutrophils # 12.6 H Seg Neutrophils # Man Lymphocytes # (Manual) Monocytes # (Manual) Basophils # (Manual) Percent Retic PT INR APTT Heparin Anti-Xa Level POC ABG pH POC ABG pCO2 POC ABG pO2 Sodium Potassium Chloride 107.7 H Carbon Dioxide BUN Creatinine 0.6 L Glucose 150 H POC Glucose 153 H Calcium 8.3 L Phosphorus Iron TIBC Lactate Dehydrogenase Total Creatine Kinase NT-Pro-B Natriuret Pep Total Protein Albumin Bvdbf-1-Gklobqfpr Vmvyp-5-Zdqaqmanq Beta Globulins PEP Interpretation Cholesterol LDL Cholesterol Direct Vitamin B12 Urine WBC (Auto) Urine Creatinine Crossmatch 05/17/16 05/17/16 05/17/16 11:02 17:33 23:38 WBC RBC Hgb Hct MCV MCH MCHC RDW Plt Count Lymph % (Auto) [place] % (Auto) Lymph # [place] # Baso # Seg Neutrophils % Seg Neuts % (Manual) Lymphocytes % (Manual) Monocytes % (Manual) Seg Neutrophils # Seg Neutrophils # Man Lymphocytes # (Manual) Monocytes # (Manual) Basophils # (Manual) Percent Retic PT INR APTT Heparin Anti-Xa Level POC ABG pH POC ABG pCO2 POC ABG pO2 Sodium Potassium Chloride Carbon Dioxide BUN Creatinine Glucose POC Glucose 195 H 201 H 135 H Calcium Phosphorus Iron TIBC Lactate Dehydrogenase Total Creatine Kinase NT-Pro-B Natriuret Pep Total Protein Albumin Iuvlx-9-Gljowzxpc Cetub-5-Ydmfhhphx Beta Globulins PEP Interpretation Cholesterol LDL Cholesterol Direct Vitamin B12 Urine WBC (Auto) Urine Creatinine Crossmatch 05/18/16 05/18/16 05/18/16 04:08 04:08 06:12 WBC 13.4 H RBC 3.48 L Hgb 9.0 L Hct 28.6 L MCV 82 L MCH 26 L MCHC RDW 18.2 H Plt Count 532 H Lymph % (Auto) 11.4 L [place] % (Auto) 8.8 H Lymph # [place] # 1.2 H Baso # Seg Neutrophils % 77.6 H Seg Neuts % (Manual) Lymphocytes % (Manual) Monocytes % (Manual) Seg Neutrophils # 10.4 H Seg Neutrophils # Man Lymphocytes # (Manual) Monocytes # (Manual) Basophils # (Manual) Percent Retic PT INR APTT Heparin Anti-Xa Level POC ABG pH POC ABG pCO2 POC ABG pO2 Sodium Potassium Chloride Carbon Dioxide BUN 21 H Creatinine 0.5 L Glucose 136 H POC Glucose 157 H Calcium Phosphorus Iron TIBC Lactate Dehydrogenase Total Creatine Kinase NT-Pro-B Natriuret Pep Total Protein Albumin Ewrxk-6-Qvkftsoyo Iyqyj-9-Zgbcyegfy Beta Globulins PEP Interpretation Cholesterol LDL Cholesterol Direct Vitamin B12 Urine WBC (Auto) Urine Creatinine Crossmatch 05/18/16 05/18/16 05/18/16 11:52 17:59 23:33 WBC RBC Hgb Hct MCV MCH MCHC RDW Plt Count Lymph % (Auto) [place] % (Auto) Lymph # [place] # Baso # Seg Neutrophils % Seg Neuts % (Manual) Lymphocytes % (Manual) Monocytes % (Manual) Seg Neutrophils # Seg Neutrophils # Man Lymphocytes # (Manual) Monocytes # (Manual) Basophils # (Manual) Percent Retic PT INR APTT Heparin Anti-Xa Level POC ABG pH POC ABG pCO2 POC ABG pO2 Sodium Potassium Chloride Carbon Dioxide BUN Creatinine Glucose POC Glucose 146 H 130 H 120 H Calcium Phosphorus Iron TIBC Lactate Dehydrogenase Total Creatine Kinase NT-Pro-B Natriuret Pep Total Protein Albumin Upoki-7-Bkywxpfdm Idusi-8-Pnlawsxwj Beta Globulins PEP Interpretation Cholesterol LDL Cholesterol Direct Vitamin B12 Urine WBC (Auto) Urine Creatinine Crossmatch 05/19/16 05/19/16 05/19/16 04:32 04:32 05:38 WBC 15.5 H RBC Hgb 10.1 L Hct 31.9 L MCV 81 L MCH 26 L MCHC RDW 17.8 H Plt Count 576 H Lymph % (Auto) 9.4 L [place] % (Auto) 8.5 H Lymph # [place] # 1.3 H Baso # Seg Neutrophils % 80.1 H Seg Neuts % (Manual) Lymphocytes % (Manual) Monocytes % (Manual) Seg Neutrophils # 12.4 H Seg Neutrophils # Man Lymphocytes # (Manual) Monocytes # (Manual) Basophils # (Manual) Percent Retic PT INR APTT Heparin Anti-Xa Level POC ABG pH POC ABG pCO2 POC ABG pO2 Sodium Potassium Chloride Carbon Dioxide BUN Creatinine 0.5 L Glucose 133 H POC Glucose 162 H Calcium Phosphorus Iron TIBC Lactate Dehydrogenase Total Creatine Kinase NT-Pro-B Natriuret Pep Total Protein Albumin Mhuon-0-Enygfaune Wblqo-9-Vkvmeusqo Beta Globulins PEP Interpretation Cholesterol LDL Cholesterol Direct Vitamin B12 Urine WBC (Auto) Urine Creatinine Crossmatch 05/19/16 05/19/16 05/20/16 12:08 17:19 04:33 WBC RBC Hgb 9.2 L Hct 28.6 L MCV MCH MCHC RDW Plt Count 497 H Lymph % (Auto) [place] % (Auto) Lymph # [place] # Baso # Seg Neutrophils % Seg Neuts % (Manual) Lymphocytes % (Manual) Monocytes % (Manual) Seg Neutrophils # Seg Neutrophils # Man Lymphocytes # (Manual) Monocytes # (Manual) Basophils # (Manual) Percent Retic PT INR APTT Heparin Anti-Xa Level POC ABG pH POC ABG pCO2 POC ABG pO2 Sodium Potassium Chloride Carbon Dioxide BUN Creatinine Glucose POC Glucose 215 H 162 H Calcium Phosphorus Iron TIBC Lactate Dehydrogenase Total Creatine Kinase NT-Pro-B Natriuret Pep Total Protein Albumin Zvejz-3-Pphdfrnwv Zfben-7-Knsipjybd Beta Globulins PEP Interpretation Cholesterol LDL Cholesterol Direct Vitamin B12 Urine WBC (Auto) Urine Creatinine Crossmatch 05/20/16 05/20/16 05/20/16 05:26 11:17 17:30 WBC RBC Hgb Hct MCV MCH MCHC RDW Plt Count Lymph % (Auto) [place] % (Auto) Lymph # [place] # Baso # Seg Neutrophils % Seg Neuts % (Manual) Lymphocytes % (Manual) Monocytes % (Manual) Seg Neutrophils # Seg Neutrophils # Man Lymphocytes # (Manual) Monocytes # (Manual) Basophils # (Manual) Percent Retic PT INR APTT Heparin Anti-Xa Level POC ABG pH POC ABG pCO2 POC ABG pO2 Sodium Potassium Chloride Carbon Dioxide BUN Creatinine Glucose POC Glucose 142 H 118 H 54 L Calcium Phosphorus Iron TIBC Lactate Dehydrogenase Total Creatine Kinase NT-Pro-B Natriuret Pep Total Protein Albumin Uwzfe-3-Zgcssatfm Umytu-2-Biyvgpkgd Beta Globulins PEP Interpretation Cholesterol LDL Cholesterol Direct Vitamin B12 Urine WBC (Auto) Urine Creatinine Crossmatch 05/20/16 05/21/16 18:26 07:12 WBC RBC Hgb Hct MCV MCH MCHC RDW Plt Count Lymph % (Auto) [place] % (Auto) Lymph # [place] # Baso # Seg Neutrophils % Seg Neuts % (Manual) Lymphocytes % (Manual) Monocytes % (Manual) Seg Neutrophils # Seg Neutrophils # Man Lymphocytes # (Manual) Monocytes # (Manual) Basophils # (Manual) Percent Retic PT INR APTT Heparin Anti-Xa Level POC ABG pH POC ABG pCO2 POC ABG pO2 Sodium Potassium Chloride Carbon Dioxide BUN Creatinine Glucose POC Glucose 141 H 165 H Calcium Phosphorus Iron TIBC Lactate Dehydrogenase Total Creatine Kinase NT-Pro-B Natriuret Pep Total Protein Albumin Usjoo-9-Rjpedxuge Ddftr-6-Yokiccjmp Beta Globulins PEP Interpretation Cholesterol LDL Cholesterol Direct Vitamin B12 Urine WBC (Auto) Urine Creatinine Crossmatch
[2016-05-21] MEDS: CORDARONE PO SCH (10:52)
[2016-05-21] MEDS: KEPPRA PO SCH ×2 (10:52→21:34)
[2016-05-21] MEDS: ZESTRIL PO SCH ×2 (10:52→21:35)
[2016-05-21] MEDS: NORVASC PO SCH (10:53)
[2016-05-21] MEDS: PEPCID PO SCH ×2 (10:53→21:34)
[2016-05-21] MEDS: LEVEMIR SUB-Q SCH (10:54)
--- NOTE | 2016-05-21 13:22 | Progress Note ---
Assessment and Plan Assessment and plan: 1. Acute respiratory failure: Pulmonary consulted, T Peice in place, continue current care. 2. Acute CVA:Continue stroke protocol, Hold anticoagulation for now secondary to bleeding. 3. Sepsis Secondary to UTI:Sepsis protocol, IV abx, IVF, supportive care, 4. Encephalopathy: treat sepsis, supportive care, 5. Accelerated hypertension: Monitor bp q shift, continue current therapy. 6. CAD: No angina at this time, continue current care. 7. Seizure Disorder: Continue Keppra. 8. Diabetes: ADA diet, insulin, accu check 9. Oropharyngeal dysphagia. Status post PEG placement. The high probability of a clinically significant, sudden or life threatening deterioration of the [Pulmonary,Renal, Cardiac] system(s) required my full and direct attention, intervention and personal management. The aggregate critical care time was [55] minutes. This time is in addition to time spent performing reported procedures but includes the following: [x] Data Review and interpretation [x] Patient assessment and monitoring of vital signs [x] Documentation [x] Medication orders and management History Interval history: Pt lying in bed. chronically ill appearing. NO reported nursing events overnight. Case management consulted for D/C planning/placement.. Hospitalist Physical - Constitutional Vitals: Temp Pulse Resp BP Pulse Ox 98.3 F 95 H 24 120/68 98 05/21/16 08:16 05/21/16 08:16 05/21/16 08:16 05/21/16 08:16 05/21/16 08:16 General appearance: Present: no acute distress, other (tracheostomy) - Neck Neck: Present: supple - Respiratory Respiratory: bilateral: diminished - Cardiovascular Rhythm: regular Heart Sounds: Present: S1 & S2 - Extremities Extremities: no ischemia Extremity abnormal: edema Peripheral Pulses: within normal limits - Abdominal General gastrointestinal: soft, non-tender, non-distended - Integumentary Integumentary: Present: clear, dry, decreased turgor - Psychiatric Psychiatric: no intact judgment & insight, no memory intact - Neurologic Neurologic: no gait normal Results - Labs CBC & Chem 7: 05/20/16 04:33 05/19/16 04:32 Labs: Laboratory Last Values WBC 15.5 K/mm3 (4.5-11.0) H 05/19/16 04:32 RBC 3.94 M/mm3 (3.65-5.03) 05/19/16 04:32 Hgb 9.2 gm/dl (11.8-15.2) L 05/20/16 04:33 Hct 28.6 % (35.5-45.6) L 05/20/16 04:33 MCV 81 fl (84-94) L 05/19/16 04:32 MCH 26 pg (28-32) L 05/19/16 04:32 MCHC 32 % (32-34) 05/19/16 04:32 RDW 17.8 % (13.2-15.2) H 05/19/16 04:32 Plt Count 497 K/mm3 (140-440) H 05/20/16 04:33 Lymph % (Auto) 9.4 % (13.4-35.0) L 05/19/16 04:32 [place] % (Auto) 8.5 % (0.0-7.3) H 05/19/16 04:32 Eos % (Auto) 1.4 % (0.0-4.3) 05/19/16 04:32 Baso % (Auto) 0.6 % (0.0-1.8) 05/19/16 04:32 Lymph # 1.5 K/mm3 (1.2-5.4) 05/19/16 04:32 [place] # 1.3 K/mm3 (0.0-0.8) H 05/19/16 04:32 Eos # 0.2 K/mm3 (0.0-0.4) 05/19/16 04:32 Baso # 0.1 K/mm3 (0.0-0.1) 05/19/16 04:32 Add Manual Diff Complete 05/13/16 04:45 Total Counted 100 05/13/16 04:45 Seg Neutrophils % 80.1 % (40.0-70.0) H 05/19/16 04:32 Seg Neuts % (Manual) 76.0 % (40.0-70.0) H 05/13/16 04:45 Band Neutrophils % 3.0 % 05/13/16 04:45 Lymphocytes % (Manual) 11.0 % (13.4-35.0) L 05/13/16 04:45 Reactive Lymphs % (Man) 0 % 05/13/16 04:45 Monocytes % (Manual) 8.0 % (0.0-7.3) H 05/13/16 04:45 Eosinophils % (Manual) 1.0 % (0.0-4.3) 05/13/16 04:45 Basophils % (Manual) 1.0 % (0.0-1.8) 05/13/16 04:45 Metamyelocytes % 0 % 05/13/16 04:45 Myelocytes % 0 % 05/13/16 04:45 Promyelocytes % 0 % 05/13/16 04:45 Blast Cells % 0 % 05/13/16 04:45 Nucleated RBC % Not Reportable 05/13/16 04:45 Seg Neutrophils # 12.4 K/mm3 (1.8-7.7) H 05/19/16 04:32 Seg Neutrophils # Man 13.8 K/mm3 (1.8-7.7) H 05/13/16 04:45 Band Neutrophils # 0.5 K/mm3 05/13/16 04:45 Lymphocytes # (Manual) 2.0 K/mm3 (1.2-5.4) 05/13/16 04:45 Abs React Lymphs (Man) 0.0 K/mm3 05/13/16 04:45 Monocytes # (Manual) 1.4 K/mm3 (0.0-0.8) H 05/13/16 04:45 Eosinophils # (Manual) 0.2 K/mm3 (0.0-0.4) 05/13/16 04:45 Basophils # (Manual) 0.2 K/mm3 (0.0-0.1) H 05/13/16 04:45 Metamyelocytes # 0.0 K/mm3 05/13/16 04:45 Myelocytes # 0.0 K/mm3 05/13/16 04:45 Promyelocytes # 0.0 K/mm3 05/13/16 04:45 Blast Cells # 0.0 K/mm3 05/13/16 04:45 WBC Morphology Not Reportable 05/13/16 04:45 Hypersegmented Neuts Not Reportable 05/13/16 04:45 Hyposegmented Neuts Not Reportable 05/13/16 04:45 Hypogranular Neuts Not Reportable 05/13/16 04:45 Smudge Cells Not Reportable 05/13/16 04:45 Toxic Granulation Not Reportable 05/13/16 04:45 Toxic Vacuolation Not Reportable 05/13/16 04:45 Dohle Bodies Not Reportable 05/13/16 04:45 Pelger-Huet Anomaly Not Reportable 05/13/16 04:45 Corina Rods Not Reportable 05/13/16 04:45 Platelet Estimate Consistent w auto 05/13/16 04:45 Clumped Platelets Not Reportable 05/13/16 04:45 Plt Clumps, EDTA Not Reportable 05/13/16 04:45 Large Platelets Not Reportable 05/13/16 04:45 Giant Platelets Not Reportable 05/13/16 04:45 Platelet Satelliting Not Reportable 05/13/16 04:45 Plt Morphology Comment Not Reportable 05/13/16 04:45 RBC Morphology Not Reportable 05/13/16 04:45 Dimorphic RBCs Not Reportable 05/13/16 04:45 Polychromasia Rare 05/13/16 04:45 Hypochromasia Not Reportable 05/13/16 04:45 Poikilocytosis Not Reportable 05/13/16 04:45 Anisocytosis 1+ 05/13/16 04:45 Microcytosis Not Reportable 05/13/16 04:45 Macrocytosis Rare 05/13/16 04:45 Spherocytes Not Reportable 05/13/16 04:45 Pappenheimer Bodies Not Reportable 05/13/16 04:45 Sickle Cells Not Reportable 05/13/16 04:45 Target Cells Not Reportable 05/13/16 04:45 Tear Drop Cells Not Reportable 05/13/16 04:45 Ovalocytes Not Reportable 05/13/16 04:45 Helmet Cells Not Reportable 05/13/16 04:45 Mcgrath-[place] Bodies Not Reportable 05/13/16 04:45 [place] Rings Not Reportable 05/13/16 04:45 [place] Cells Not Reportable 05/13/16 04:45 Bite Cells Not Reportable 05/13/16 04:45 Crenated Cell Not Reportable 05/13/16 04:45 Elliptocytes Not Reportable 05/13/16 04:45 Acanthocytes (Spur) Not Reportable 05/13/16 04:45 Rouleaux Not Reportable 05/13/16 04:45 Hemoglobin C Crystals Not Reportable 05/13/16 04:45 Schistocytes Not Reportable 05/13/16 04:45 Malaria parasites Not Reportable 05/13/16 04:45 Percent Retic 3.68 % (0.78-2.58) H 04/29/16 10:16 [place] Bodies Not Reportable 05/13/16 04:45 Hem Pathologist Commnt No 05/13/16 04:45 PT 13.8 Sec. (12.2-14.9) 05/12/16 11:01 INR 1.07 (0.87-1.13) 05/12/16 11:01 APTT 27.2 Sec. (24.2-36.6) 05/12/16 11:01 Heparin Anti-Xa Level < 0.10 U.I./ml (0.3-0.7) L 05/13/16 18:06 POC ABG pH 7.491 (7.35-7.45) H 05/16/16 04:29 POC ABG pCO2 33.9 (35-45) L 05/16/16 04:29 POC ABG pO2 88 (80-105) 05/16/16 04:29 POC ABG HCO3 25.9 05/16/16 04:29 POC ABG Total CO2 27 05/16/16 04:29 POC ABG O2 Sat 98 05/16/16 04:29 POC ABG Base Excess 3 05/16/16 04:29 VBG pH 7.418 (7.320-7.420) 03/24/16 14:00 FiO2 25 % 05/16/16 04:29 Sodium 140 mmol/L (137-145) 05/19/16 04:32 Potassium 4.3 mmol/L (3.6-5.0) 05/19/16 04:32 Chloride 101.1 mmol/L (98-107) 05/19/16 04:32 Carbon Dioxide 24 mmol/L (22-30) 05/19/16 04:32 Anion Gap 19 mmol/L 05/19/16 04:32 BUN 19 mg/dL (9-20) 05/19/16 04:32 Creatinine 0.5 mg/dL (0.8-1.5) L 05/19/16 04:32 Estimated GFR > 60 ml/min 05/19/16 04:32 BUN/Creatinine Ratio 38.00 % 05/19/16 04:32 Glucose 133 mg/dL (75-100) H 05/19/16 04:32 POC Glucose 294 (70-105) H 05/21/16 12:21 Hemoglobin A1c 9.6 % (4-6) H 03/24/16 14:00 Lactic Acid 1.6 mmol/L (0.7-2.0) 04/17/16 12:17 Calcium 9.0 mg/dL (8.4-10.2) 05/19/16 04:32 Phosphorus 3.1 mg/dL (2.5-4.5) 05/11/16 04:16 Magnesium 2.3 mg/dL (1.7-2.3) 05/11/16 04:16 Iron 10 ug/dL (49-181) L 04/29/16 10:16 TIBC 138 mcg/dL (250-450) L 04/29/16 10:16 Ferritin 336.4 ng/mL (13.0-400.0) 04/29/16 10:16 Total Bilirubin < 0.2 mg/dL (0.1-1.2) 04/27/16 04:21 AST 18 units/L (5-40) 04/27/16 04:21 ALT 39 units/L (7-56) 04/27/16 04:21 Alkaline Phosphatase 103 units/L (35-129) 04/27/16 04:21 Lactate Dehydrogenase 204 units/L (91-180) H 04/29/16 10:16 Total Creatine Kinase 356 units/L (55-170) H 03/28/16 13:29 Troponin T < 0.010 ng/mL (0.00-0.029) 03/28/16 13:29 NT-Pro-B Natriuret Pep 897.9 pg/mL (0-900) 04/03/16 04:10 Serum Total Protein 7.1 g/dL (6.1-8.1) 03/25/16 13:00 Total Protein 6.0 g/dL (6.3-8.2) L 04/27/16 04:21 Albumin 2.0 g/dL (3.9-5) L 04/27/16 04:21 Albumin/Globulin Ratio 0.5 % 04/27/16 04:21 Otuet-6-Pmymjpsva See scanned report 03/31/16 12:20 Mghly-7-Qyiudmvdv See scanned report 03/31/16 12:20 Beta Globulins See scanned report 03/31/16 12:20 Hkvw-3-Tgzkaqswiahef 2.46 mg/L (<=2.51) 03/25/16 13:00 Gamma Globulins See scanned report 03/31/16 12:20 Abnorm Protein Band 1 see below (()) 03/25/16 13:00 PEP Interpretation See scanned report 03/31/16 12:20 Triglycerides 88 mg/dL (2-149) 03/24/16 17:58 Cholesterol 221 mg/dL (50-199) H 03/24/16 17:58 LDL Cholesterol Direct 146 mg/dL (50-130) H 03/24/16 17:58 HDL Cholesterol 58 mg/dL (40-59) 03/24/16 17:58 Cholesterol/HDL Ratio 3.81 % 03/24/16 17:58 Vitamin B12 1005 pg/mL (211-911) H 04/29/16 10:16 Folate 12.78 ng/mL (7.3-26.0) 04/29/16 10:16 Urine Color Yellow (Yellow) 05/04/16 10:20 Urine Turbidity Cloudy (Clear) 05/04/16 10:20 Urine pH 5.0 (5.0-7.0) 05/04/16 10:20 Ur Specific [place] 1.017 (1.003-1.030) 05/04/16 10:20 Urine Protein 100 mg/dl mg/dL (Negative) 05/04/16 10:20 Urine Glucose (UA) >=500 mg/dL (Negative) 05/04/16 10:20 Urine Ketones Neg mg/dL (Negative) 05/04/16 10:20 Urine Blood Sm (Negative) 05/04/16 10:20 Urine Nitrite Neg (Negative) 05/04/16 10:20 Urine Bilirubin Neg (Negative) 05/04/16 10:20 Urine Urobilinogen 2.0 mg/dL (<2.0) 05/04/16 10:20 Ur Leukocyte Esterase Lg (Negative) 05/04/16 10:20 Urine WBC (Auto) > 182.0 /HPF (0.0-6.0) H 05/04/16 10:20 Urine RBC (Auto) 13.0 /HPF (0.0-6.0) 05/04/16 10:20 U Epithel Cells (Auto) < 1.0 /HPF (0-13.0) 05/04/16 10:20 Urine Bacteria (Auto) 1+ /HPF (Negative) 05/04/16 10:20 Urine WBC Clumps 3+ /HPF 05/04/16 10:20 Hyaline Casts 1 /LPF 03/24/16 14:27 Urine Mucus Few /HPF 05/04/16 10:20 Urine Yeast (Budding) 1+ /HPF 05/04/16 10:20 Ur Random Creatinine See scanned report 03/31/16 12:20 U Random Total Protein See scanned report 03/31/16 12:20 Urine Creatinine 85.5 mg/dL (0.1-20.0) H 04/20/16 11:50 Protein/Creatinin Ratio See scanned report 03/31/16 12:20 Urine Sodium 17 mEq/L 04/20/16 11:50 U Abnormal Prot Band 1 See scanned report 03/31/16 12:20 U Abnormal Prot Band 2 See scanned report 03/31/16 12:20 U Abnormal Prot Band 3 See scanned report 03/31/16 12:20 Ketones 1.0 mg/dL (0.2-2.8) 03/24/16 14:00 Blood Type A POSITIVE 05/09/16 19:47 Antibody Screen Negative 05/09/16 19:47 Crossmatch See Detail 05/09/16 19:47
[2016-05-22] MEDS: DUONEB 0.5 MG-3 MG/3 ML SOLN IH SCH ×4 (02:01→19:42)
[2016-05-22] MEDS: NOVOLOG SUB-Q SCH ×4 (06:35→18:26)
[2016-05-22] MEDS: KEPPRA PO SCH ×2 (10:26→22:23)
[2016-05-22] MEDS: CORDARONE PO SCH (10:27)
[2016-05-22] MEDS: NORVASC PO SCH (10:27)
[2016-05-22] MEDS: ZESTRIL PO SCH ×2 (10:27→22:24)
[2016-05-22] MEDS: NORMODYNE PO SCH ×3 (10:27→22:23)
[2016-05-22] MEDS: PEPCID PO SCH ×2 (10:27→22:23)
[2016-05-22] MEDS: LEVEMIR SUB-Q SCH (14:06)
[2016-05-23] MEDS: NOVOLOG SUB-Q SCH ×4 (00:38→18:06)
[2016-05-23] MEDS: DUONEB 0.5 MG-3 MG/3 ML SOLN IH SCH ×4 (01:49→19:53)
--- NOTE | 2016-05-23 08:05 | Progress Note ---
Assessment and Plan Assessment and plan: 1. Acute respiratory failure: Pulmonary consulted, T Peice in place, continue current care. 2. Acute CVA:Continue stroke protocol, Hold anticoagulation for now secondary to bleeding. 3. Sepsis Secondary to UTI:Sepsis protocol, IV abx, IVF, supportive care, 4. Encephalopathy: treat sepsis, supportive care, 5. Accelerated hypertension: Monitor bp q shift, continue current therapy. 6. CAD: No angina at this time, continue current care. 7. Seizure Disorder: Continue Keppra. 8. Diabetes: ADA diet, insulin, accu check 9. Oropharyngeal dysphagia. Status post PEG placement. History Interval history: Pt lying in bed. chronically ill appearing. NO reported nursing events overnight. Case management consulted for D/C planning/placement.. Hospitalist Physical - Constitutional Vitals: Temp Pulse Resp BP Pulse Ox 98.2 F 94 H 18 110/94 96 05/23/16 05:23 05/23/16 05:23 05/23/16 05:23 05/23/16 05:23 05/23/16 05:23 General appearance: Present: no acute distress, other (tracheostomy) - Neck Neck: Present: supple - Respiratory Respiratory: bilateral: diminished - Cardiovascular Rhythm: regular Heart Sounds: Present: S1 & S2 - Extremities Extremities: no ischemia Peripheral Pulses: within normal limits - Abdominal General gastrointestinal: soft, non-tender, non-distended - Integumentary Integumentary: Present: clear, dry - Psychiatric Psychiatric: no intact judgment & insight, no memory intact - Neurologic Neurologic: no gait normal Results - Labs CBC & Chem 7: 05/20/16 04:33 05/19/16 04:32 Labs: Laboratory Last Values WBC 15.5 K/mm3 (4.5-11.0) H 05/19/16 04:32 RBC 3.94 M/mm3 (3.65-5.03) 05/19/16 04:32 Hgb 9.2 gm/dl (11.8-15.2) L 05/20/16 04:33 Hct 28.6 % (35.5-45.6) L 05/20/16 04:33 MCV 81 fl (84-94) L 05/19/16 04:32 MCH 26 pg (28-32) L 05/19/16 04:32 MCHC 32 % (32-34) 05/19/16 04:32 RDW 17.8 % (13.2-15.2) H 05/19/16 04:32 Plt Count 497 K/mm3 (140-440) H 05/20/16 04:33 Lymph % (Auto) 9.4 % (13.4-35.0) L 05/19/16 04:32 [place] % (Auto) 8.5 % (0.0-7.3) H 05/19/16 04:32 Eos % (Auto) 1.4 % (0.0-4.3) 05/19/16 04:32 Baso % (Auto) 0.6 % (0.0-1.8) 05/19/16 04:32 Lymph # 1.5 K/mm3 (1.2-5.4) 05/19/16 04:32 [place] # 1.3 K/mm3 (0.0-0.8) H 05/19/16 04:32 Eos # 0.2 K/mm3 (0.0-0.4) 05/19/16 04:32 Baso # 0.1 K/mm3 (0.0-0.1) 05/19/16 04:32 Add Manual Diff Complete 05/13/16 04:45 Total Counted 100 05/13/16 04:45 Seg Neutrophils % 80.1 % (40.0-70.0) H 05/19/16 04:32 Seg Neuts % (Manual) 76.0 % (40.0-70.0) H 05/13/16 04:45 Band Neutrophils % 3.0 % 05/13/16 04:45 Lymphocytes % (Manual) 11.0 % (13.4-35.0) L 05/13/16 04:45 Reactive Lymphs % (Man) 0 % 05/13/16 04:45 Monocytes % (Manual) 8.0 % (0.0-7.3) H 05/13/16 04:45 Eosinophils % (Manual) 1.0 % (0.0-4.3) 05/13/16 04:45 Basophils % (Manual) 1.0 % (0.0-1.8) 05/13/16 04:45 Metamyelocytes % 0 % 05/13/16 04:45 Myelocytes % 0 % 05/13/16 04:45 Promyelocytes % 0 % 05/13/16 04:45 Blast Cells % 0 % 05/13/16 04:45 Nucleated RBC % Not Reportable 05/13/16 04:45 Seg Neutrophils # 12.4 K/mm3 (1.8-7.7) H 05/19/16 04:32 Seg Neutrophils # Man 13.8 K/mm3 (1.8-7.7) H 05/13/16 04:45 Band Neutrophils # 0.5 K/mm3 05/13/16 04:45 Lymphocytes # (Manual) 2.0 K/mm3 (1.2-5.4) 05/13/16 04:45 Abs React Lymphs (Man) 0.0 K/mm3 05/13/16 04:45 Monocytes # (Manual) 1.4 K/mm3 (0.0-0.8) H 05/13/16 04:45 Eosinophils # (Manual) 0.2 K/mm3 (0.0-0.4) 05/13/16 04:45 Basophils # (Manual) 0.2 K/mm3 (0.0-0.1) H 05/13/16 04:45 Metamyelocytes # 0.0 K/mm3 05/13/16 04:45 Myelocytes # 0.0 K/mm3 05/13/16 04:45 Promyelocytes # 0.0 K/mm3 05/13/16 04:45 Blast Cells # 0.0 K/mm3 05/13/16 04:45 WBC Morphology Not Reportable 05/13/16 04:45 Hypersegmented Neuts Not Reportable 05/13/16 04:45 Hyposegmented Neuts Not Reportable 05/13/16 04:45 Hypogranular Neuts Not Reportable 05/13/16 04:45 Smudge Cells Not Reportable 05/13/16 04:45 Toxic Granulation Not Reportable 05/13/16 04:45 Toxic Vacuolation Not Reportable 05/13/16 04:45 Dohle Bodies Not Reportable 05/13/16 04:45 Pelger-Huet Anomaly Not Reportable 05/13/16 04:45 Corina Rods Not Reportable 05/13/16 04:45 Platelet Estimate Consistent w auto 05/13/16 04:45 Clumped Platelets Not Reportable 05/13/16 04:45 Plt Clumps, EDTA Not Reportable 05/13/16 04:45 Large Platelets Not Reportable 05/13/16 04:45 Giant Platelets Not Reportable 05/13/16 04:45 Platelet Satelliting Not Reportable 05/13/16 04:45 Plt Morphology Comment Not Reportable 05/13/16 04:45 RBC Morphology Not Reportable 05/13/16 04:45 Dimorphic RBCs Not Reportable 05/13/16 04:45 Polychromasia Rare 05/13/16 04:45 Hypochromasia Not Reportable 05/13/16 04:45 Poikilocytosis Not Reportable 05/13/16 04:45 Anisocytosis 1+ 05/13/16 04:45 Microcytosis Not Reportable 05/13/16 04:45 Macrocytosis Rare 05/13/16 04:45 Spherocytes Not Reportable 05/13/16 04:45 Pappenheimer Bodies Not Reportable 05/13/16 04:45 Sickle Cells Not Reportable 05/13/16 04:45 Target Cells Not Reportable 05/13/16 04:45 Tear Drop Cells Not Reportable 05/13/16 04:45 Ovalocytes Not Reportable 05/13/16 04:45 Helmet Cells Not Reportable 05/13/16 04:45 Mcgrath-[place] Bodies Not Reportable 05/13/16 04:45 [place] Rings Not Reportable 05/13/16 04:45 [place] Cells Not Reportable 05/13/16 04:45 Bite Cells Not Reportable 05/13/16 04:45 Crenated Cell Not Reportable 05/13/16 04:45 Elliptocytes Not Reportable 05/13/16 04:45 Acanthocytes (Spur) Not Reportable 05/13/16 04:45 Rouleaux Not Reportable 05/13/16 04:45 Hemoglobin C Crystals Not Reportable 05/13/16 04:45 Schistocytes Not Reportable 05/13/16 04:45 Malaria parasites Not Reportable 05/13/16 04:45 Percent Retic 3.68 % (0.78-2.58) H 04/29/16 10:16 [place] Bodies Not Reportable 05/13/16 04:45 Hem Pathologist Commnt No 05/13/16 04:45 PT 13.8 Sec. (12.2-14.9) 05/12/16 11:01 INR 1.07 (0.87-1.13) 05/12/16 11:01 APTT 27.2 Sec. (24.2-36.6) 05/12/16 11:01 Heparin Anti-Xa Level < 0.10 U.I./ml (0.3-0.7) L 05/13/16 18:06 POC ABG pH 7.491 (7.35-7.45) H 05/16/16 04:29 POC ABG pCO2 33.9 (35-45) L 05/16/16 04:29 POC ABG pO2 88 (80-105) 05/16/16 04:29 POC ABG HCO3 25.9 05/16/16 04:29 POC ABG Total CO2 27 05/16/16 04:29 POC ABG O2 Sat 98 05/16/16 04:29 POC ABG Base Excess 3 05/16/16 04:29 VBG pH 7.418 (7.320-7.420) 03/24/16 14:00 FiO2 25 % 05/16/16 04:29 Sodium 140 mmol/L (137-145) 05/19/16 04:32 Potassium 4.3 mmol/L (3.6-5.0) 05/19/16 04:32 Chloride 101.1 mmol/L (98-107) 05/19/16 04:32 Carbon Dioxide 24 mmol/L (22-30) 05/19/16 04:32 Anion Gap 19 mmol/L 05/19/16 04:32 BUN 19 mg/dL (9-20) 05/19/16 04:32 Creatinine 0.5 mg/dL (0.8-1.5) L 05/19/16 04:32 Estimated GFR > 60 ml/min 05/19/16 04:32 BUN/Creatinine Ratio 38.00 % 05/19/16 04:32 Glucose 133 mg/dL (75-100) H 05/19/16 04:32 POC Glucose 122 (70-105) H 05/23/16 05:46 Hemoglobin A1c 9.6 % (4-6) H 03/24/16 14:00 Lactic Acid 1.6 mmol/L (0.7-2.0) 04/17/16 12:17 Calcium 9.0 mg/dL (8.4-10.2) 05/19/16 04:32 Phosphorus 3.1 mg/dL (2.5-4.5) 05/11/16 04:16 Magnesium 2.3 mg/dL (1.7-2.3) 05/11/16 04:16 Iron 10 ug/dL (49-181) L 04/29/16 10:16 TIBC 138 mcg/dL (250-450) L 04/29/16 10:16 Ferritin 336.4 ng/mL (13.0-400.0) 04/29/16 10:16 Total Bilirubin < 0.2 mg/dL (0.1-1.2) 04/27/16 04:21 AST 18 units/L (5-40) 04/27/16 04:21 ALT 39 units/L (7-56) 04/27/16 04:21 Alkaline Phosphatase 103 units/L (35-129) 04/27/16 04:21 Lactate Dehydrogenase 204 units/L (91-180) H 04/29/16 10:16 Total Creatine Kinase 356 units/L (55-170) H 03/28/16 13:29 Troponin T < 0.010 ng/mL (0.00-0.029) 03/28/16 13:29 NT-Pro-B Natriuret Pep 897.9 pg/mL (0-900) 04/03/16 04:10 Serum Total Protein 7.1 g/dL (6.1-8.1) 03/25/16 13:00 Total Protein 6.0 g/dL (6.3-8.2) L 04/27/16 04:21 Albumin 2.0 g/dL (3.9-5) L 04/27/16 04:21 Albumin/Globulin Ratio 0.5 % 04/27/16 04:21 Hiljj-0-Hoffzbssn See scanned report 03/31/16 12:20 Hqfet-2-Dtphrpqdj See scanned report 03/31/16 12:20 Beta Globulins See scanned report 03/31/16 12:20 Ebmc-5-Ndyomnfhxrwsd 2.46 mg/L (<=2.51) 03/25/16 13:00 Gamma Globulins See scanned report 03/31/16 12:20 Abnorm Protein Band 1 see below (()) 11/24/16 13:00 PEP Interpretation See scanned report 03/31/16 12:20 Triglycerides 88 mg/dL (2-149) 03/24/16 17:58 Cholesterol 221 mg/dL (50-199) H 03/24/16 17:58 LDL Cholesterol Direct 146 mg/dL (50-130) H 03/24/16 17:58 HDL Cholesterol 58 mg/dL (40-59) 03/24/16 17:58 Cholesterol/HDL Ratio 3.81 % 03/24/16 17:58 Vitamin B12 1005 pg/mL (211-911) H 04/29/16 10:16 Folate 12.78 ng/mL (7.3-26.0) 04/29/16 10:16 Urine Color Yellow (Yellow) 05/04/16 10:20 Urine Turbidity Cloudy (Clear) 05/04/16 10:20 Urine pH 5.0 (5.0-7.0) 05/04/16 10:20 Ur Specific [place] 1.017 (1.003-1.030) 05/04/16 10:20 Urine Protein 100 mg/dl mg/dL (Negative) 05/04/16 10:20 Urine Glucose (UA) >=500 mg/dL (Negative) 05/04/16 10:20 Urine Ketones Neg mg/dL (Negative) 05/04/16 10:20 Urine Blood Sm (Negative) 05/04/16 10:20 Urine Nitrite Neg (Negative) 05/04/16 10:20 Urine Bilirubin Neg (Negative) 05/04/16 10:20 Urine Urobilinogen 2.0 mg/dL (<2.0) 05/04/16 10:20 Ur Leukocyte Esterase Lg (Negative) 05/04/16 10:20 Urine WBC (Auto) > 182.0 /HPF (0.0-6.0) H 05/04/16 10:20 Urine RBC (Auto) 13.0 /HPF (0.0-6.0) 05/04/16 10:20 U Epithel Cells (Auto) < 1.0 /HPF (0-13.0) 05/04/16 10:20 Urine Bacteria (Auto) 1+ /HPF (Negative) 05/04/16 10:20 Urine WBC Clumps 3+ /HPF 05/04/16 10:20 Hyaline Casts 1 /LPF 03/24/16 14:27 Urine Mucus Few /HPF 05/04/16 10:20 Urine Yeast (Budding) 1+ /HPF 05/04/16 10:20 Ur Random Creatinine See scanned report 03/31/16 12:20 U Random Total Protein See scanned report 03/31/16 12:20 Urine Creatinine 85.5 mg/dL (0.1-20.0) H 04/20/16 11:50 Protein/Creatinin Ratio See scanned report 03/31/16 12:20 Urine Sodium 17 mEq/L 04/20/16 11:50 U Abnormal Prot Band 1 See scanned report 03/31/16 12:20 U Abnormal Prot Band 2 See scanned report 03/31/16 12:20 U Abnormal Prot Band 3 See scanned report 03/31/16 12:20 Ketones 1.0 mg/dL (0.2-2.8) 03/24/16 14:00 Blood Type A POSITIVE 05/09/16 19:47 Antibody Screen Negative 05/09/16 19:47 Crossmatch See Detail 05/09/16 19:47
[2016-05-23] MEDS: NORMODYNE PO SCH ×3 (08:30→22:56)
[2016-05-23] MEDS: CORDARONE PO SCH (11:57)
[2016-05-23] MEDS: LEVEMIR SUB-Q SCH (11:58)
[2016-05-23] MEDS: KEPPRA PO SCH ×2 (11:58→22:56)
[2016-05-23] MEDS: NORVASC PO SCH (11:58)
[2016-05-23] MEDS: ZESTRIL PO SCH ×2 (11:59→22:56)
[2016-05-23] MEDS: PEPCID PO SCH ×2 (11:59→22:58)
--- NOTE | 2016-05-23 19:09 | Progress Note ---
Assessment and Plan Assessment and plan: 1. Acute respiratory failure: Pulmonary consulted, T Peice in place, continue current care. 2. Acute CVA:Continue stroke protocol, Hold anticoagulation for now secondary to bleeding. 3. Sepsis Secondary to UTI:Sepsis protocol, IV abx, IVF, supportive care, 4. Encephalopathy: treat sepsis, supportive care, 5. Accelerated hypertension: Monitor bp q shift, continue current therapy. 6. CAD: No angina at this time, continue current care. 7. Seizure Disorder: Continue Keppra. 8. Diabetes: ADA diet, insulin, accu check 9. Oropharyngeal dysphagia. Status post PEG placement. History Interval history: Pt lying in bed. chronically ill appearing. NO reported nursing events overnight. Case management consulted for D/C planning/placement.. Hospitalist Physical - Constitutional Vitals: Temp Pulse Resp BP Pulse Ox 100.9 F H 104 H 28 H 126/80 100 05/23/16 13:23 05/23/16 17:34 05/23/16 17:34 05/23/16 17:34 05/23/16 17:34 General appearance: Present: no acute distress, other (tracheostomy) - EENT Eyes: Present: PERRL ENT: hearing intact - Neck Neck: Present: supple - Respiratory Respiratory: bilateral: diminished - Cardiovascular Rhythm: regular Heart Sounds: Present: S1 & S2 Peripheral Pulses: within normal limits - Abdominal General gastrointestinal: soft, non-tender, non-distended - Integumentary Integumentary: Present: clear, dry, decreased turgor - Psychiatric Psychiatric: no intact judgment & insight, no memory intact - Neurologic Neurologic: no gait normal Results - Labs CBC & Chem 7: 05/20/16 04:33 05/19/16 04:32 Labs: Laboratory Last Values WBC 15.5 K/mm3 (4.5-11.0) H 05/19/16 04:32 RBC 3.94 M/mm3 (3.65-5.03) 05/19/16 04:32 Hgb 9.2 gm/dl (11.8-15.2) L 05/20/16 04:33 Hct 28.6 % (35.5-45.6) L 05/20/16 04:33 MCV 81 fl (84-94) L 05/19/16 04:32 MCH 26 pg (28-32) L 05/19/16 04:32 MCHC 32 % (32-34) 05/19/16 04:32 RDW 17.8 % (13.2-15.2) H 05/19/16 04:32 Plt Count 497 K/mm3 (140-440) H 05/20/16 04:33 Lymph % (Auto) 9.4 % (13.4-35.0) L 05/19/16 04:32 [place] % (Auto) 8.5 % (0.0-7.3) H 05/19/16 04:32 Eos % (Auto) 1.4 % (0.0-4.3) 05/19/16 04:32 Baso % (Auto) 0.6 % (0.0-1.8) 05/19/16 04:32 Lymph # 1.5 K/mm3 (1.2-5.4) 05/19/16 04:32 Motley # 1.3 K/mm3 (0.0-0.8) H 05/19/16 04:32 Eos # 0.2 K/mm3 (0.0-0.4) 05/19/16 04:32 Baso # 0.1 K/mm3 (0.0-0.1) 05/19/16 04:32 Add Manual Diff Complete 05/13/16 04:45 Total Counted 100 05/13/16 04:45 Seg Neutrophils % 80.1 % (40.0-70.0) H 05/19/16 04:32 Seg Neuts % (Manual) 76.0 % (40.0-70.0) H 05/13/16 04:45 Band Neutrophils % 3.0 % 05/13/16 04:45 Lymphocytes % (Manual) 11.0 % (13.4-35.0) L 05/13/16 04:45 Reactive Lymphs % (Man) 0 % 05/13/16 04:45 Monocytes % (Manual) 8.0 % (0.0-7.3) H 05/13/16 04:45 Eosinophils % (Manual) 1.0 % (0.0-4.3) 05/13/16 04:45 Basophils % (Manual) 1.0 % (0.0-1.8) 05/13/16 04:45 Metamyelocytes % 0 % 05/13/16 04:45 Myelocytes % 0 % 05/13/16 04:45 Promyelocytes % 0 % 05/13/16 04:45 Blast Cells % 0 % 05/13/16 04:45 Nucleated RBC % Not Reportable 05/13/16 04:45 Seg Neutrophils # 12.4 K/mm3 (1.8-7.7) H 05/19/16 04:32 Seg Neutrophils # Man 13.8 K/mm3 (1.8-7.7) H 05/13/16 04:45 Band Neutrophils # 0.5 K/mm3 05/13/16 04:45 Lymphocytes # (Manual) 2.0 K/mm3 (1.2-5.4) 05/13/16 04:45 Abs React Lymphs (Man) 0.0 K/mm3 05/13/16 04:45 Monocytes # (Manual) 1.4 K/mm3 (0.0-0.8) H 05/13/16 04:45 Eosinophils # (Manual) 0.2 K/mm3 (0.0-0.4) 05/13/16 04:45 Basophils # (Manual) 0.2 K/mm3 (0.0-0.1) H 05/13/16 04:45 Metamyelocytes # 0.0 K/mm3 05/13/16 04:45 Myelocytes # 0.0 K/mm3 05/13/16 04:45 Promyelocytes # 0.0 K/mm3 05/13/16 04:45 Blast Cells # 0.0 K/mm3 05/13/16 04:45 WBC Morphology Not Reportable 05/13/16 04:45 Hypersegmented Neuts Not Reportable 05/13/16 04:45 Hyposegmented Neuts Not Reportable 05/13/16 04:45 Hypogranular Neuts Not Reportable 05/13/16 04:45 Smudge Cells Not Reportable 05/13/16 04:45 Toxic Granulation Not Reportable 05/13/16 04:45 Toxic Vacuolation Not Reportable 05/13/16 04:45 Dohle Bodies Not Reportable 05/13/16 04:45 Pelger-Huet Anomaly Not Reportable 05/13/16 04:45 Corina Rods Not Reportable 05/13/16 04:45 Platelet Estimate Consistent w auto 05/13/16 04:45 Clumped Platelets Not Reportable 05/13/16 04:45 Plt Clumps, EDTA Not Reportable 05/13/16 04:45 Large Platelets Not Reportable 05/13/16 04:45 Giant Platelets Not Reportable 05/13/16 04:45 Platelet Satelliting Not Reportable 05/13/16 04:45 Plt Morphology Comment Not Reportable 05/13/16 04:45 RBC Morphology Not Reportable 05/13/16 04:45 Dimorphic RBCs Not Reportable 05/13/16 04:45 Polychromasia Rare 05/13/16 04:45 Hypochromasia Not Reportable 05/13/16 04:45 Poikilocytosis Not Reportable 05/13/16 04:45 Anisocytosis 1+ 05/13/16 04:45 Microcytosis Not Reportable 05/13/16 04:45 Macrocytosis Rare 05/13/16 04:45 Spherocytes Not Reportable 05/13/16 04:45 Pappenheimer Bodies Not Reportable 05/13/16 04:45 Sickle Cells Not Reportable 05/13/16 04:45 Target Cells Not Reportable 05/13/16 04:45 Tear Drop Cells Not Reportable 05/13/16 04:45 Ovalocytes Not Reportable 05/13/16 04:45 Helmet Cells Not Reportable 05/13/16 04:45 Mcgrath-[place] Bodies Not Reportable 05/13/16 04:45 [place] Rings Not Reportable 05/13/16 04:45 [place] Cells Not Reportable 05/13/16 04:45 Bite Cells Not Reportable 05/13/16 04:45 Crenated Cell Not Reportable 05/13/16 04:45 Elliptocytes Not Reportable 05/13/16 04:45 Acanthocytes (Spur) Not Reportable 05/13/16 04:45 Rouleaux Not Reportable 05/13/16 04:45 Hemoglobin C Crystals Not Reportable 05/13/16 04:45 Schistocytes Not Reportable 05/13/16 04:45 Malaria parasites Not Reportable 05/13/16 04:45 Percent Retic 3.68 % (0.78-2.58) H 04/29/16 10:16 Gideon Bodies Not Reportable 05/13/16 04:45 Hem Pathologist Commnt No 05/13/16 04:45 PT 13.8 Sec. (12.2-14.9) 05/12/16 11:01 INR 1.07 (0.87-1.13) 05/12/16 11:01 APTT 27.2 Sec. (24.2-36.6) 05/12/16 11:01 Heparin Anti-Xa Level < 0.10 U.I./ml (0.3-0.7) L 05/13/16 18:06 POC ABG pH 7.491 (7.35-7.45) H 05/16/16 04:29 POC ABG pCO2 33.9 (35-45) L 05/16/16 04:29 POC ABG pO2 88 (80-105) 05/16/16 04:29 POC ABG HCO3 25.9 05/16/16 04:29 POC ABG Total CO2 27 05/16/16 04:29 POC ABG O2 Sat 98 05/16/16 04:29 POC ABG Base Excess 3 05/16/16 04:29 VBG pH 7.418 (7.320-7.420) 03/24/16 14:00 FiO2 25 % 05/16/16 04:29 Sodium 140 mmol/L (137-145) 05/19/16 04:32 Potassium 4.3 mmol/L (3.6-5.0) 05/19/16 04:32 Chloride 101.1 mmol/L (98-107) 05/19/16 04:32 Carbon Dioxide 24 mmol/L (22-30) 05/19/16 04:32 Anion Gap 19 mmol/L 05/19/16 04:32 BUN 19 mg/dL (9-20) 05/19/16 04:32 Creatinine 0.5 mg/dL (0.8-1.5) L 05/19/16 04:32 Estimated GFR > 60 ml/min 05/19/16 04:32 BUN/Creatinine Ratio 38.00 % 05/19/16 04:32 Glucose 133 mg/dL (75-100) H 05/19/16 04:32 POC Glucose 147 (70-105) H 05/23/16 16:12 Hemoglobin A1c 9.6 % (4-6) H 03/24/16 14:00 Lactic Acid 1.6 mmol/L (0.7-2.0) 04/17/16 12:17 Calcium 9.0 mg/dL (8.4-10.2) 05/19/16 04:32 Phosphorus 3.1 mg/dL (2.5-4.5) 05/11/16 04:16 Magnesium 2.3 mg/dL (1.7-2.3) 05/11/16 04:16 Iron 10 ug/dL (49-181) L 04/29/16 10:16 TIBC 138 mcg/dL (250-450) L 04/29/16 10:16 Ferritin 336.4 ng/mL (13.0-400.0) 04/29/16 10:16 Total Bilirubin < 0.2 mg/dL (0.1-1.2) 04/27/16 04:21 AST 18 units/L (5-40) 04/27/16 04:21 ALT 39 units/L (7-56) 04/27/16 04:21 Alkaline Phosphatase 103 units/L (35-129) 04/27/16 04:21 Lactate Dehydrogenase 204 units/L (91-180) H 04/29/16 10:16 Total Creatine Kinase 356 units/L (55-170) H 03/28/16 13:29 Troponin T < 0.010 ng/mL (0.00-0.029) 03/28/16 13:29 NT-Pro-B Natriuret Pep 897.9 pg/mL (0-900) 04/03/16 04:10 Serum Total Protein 7.1 g/dL (6.1-8.1) 03/25/16 13:00 Total Protein 6.0 g/dL (6.3-8.2) L 04/27/16 04:21 Albumin 2.0 g/dL (3.9-5) L 04/27/16 04:21 Albumin/Globulin Ratio 0.5 % 04/27/16 04:21 Qckgu-8-Kcdfxjnba See scanned report 03/31/16 12:20 Whmda-6-Fcuoekmpn See scanned report 03/31/16 12:20 Beta Globulins See scanned report 03/31/16 12:20 Qhal-0-Wtvmospsjccnu 2.46 mg/L (<=2.51) 03/25/16 13:00 Gamma Globulins See scanned report 03/31/16 12:20 Abnorm Protein Band 1 see below (()) 03/25/16 13:00 PEP Interpretation See scanned report 03/31/16 12:20 Triglycerides 88 mg/dL (2-149) 03/24/16 17:58 Cholesterol 221 mg/dL (50-199) H 03/24/16 17:58 LDL Cholesterol Direct 146 mg/dL (50-130) H 03/24/16 17:58 HDL Cholesterol 58 mg/dL (40-59) 03/24/16 17:58 Cholesterol/HDL Ratio 3.81 % 03/24/16 17:58 Vitamin B12 1005 pg/mL (211-911) H 04/29/16 10:16 Folate 12.78 ng/mL (7.3-26.0) 04/29/16 10:16 Urine Color Yellow (Yellow) 05/04/16 10:20 Urine Turbidity Cloudy (Clear) 05/04/16 10:20 Urine pH 5.0 (5.0-7.0) 05/04/16 10:20 Ur Specific [place] 1.017 (1.003-1.030) 05/04/16 10:20 Urine Protein 100 mg/dl mg/dL (Negative) 05/04/16 10:20 Urine Glucose (UA) >=500 mg/dL (Negative) 05/04/16 10:20 Urine Ketones Neg mg/dL (Negative) 05/04/16 10:20 Urine Blood Sm (Negative) 05/04/16 10:20 Urine Nitrite Neg (Negative) 05/04/16 10:20 Urine Bilirubin Neg (Negative) 05/04/16 10:20 Urine Urobilinogen 2.0 mg/dL (<2.0) 05/04/16 10:20 Ur Leukocyte Esterase Lg (Negative) 05/04/16 10:20 Urine WBC (Auto) > 182.0 /HPF (0.0-6.0) H 05/04/16 10:20 Urine RBC (Auto) 13.0 /HPF (0.0-6.0) 05/04/16 10:20 U Epithel Cells (Auto) < 1.0 /HPF (0-13.0) 05/04/16 10:20 Urine Bacteria (Auto) 1+ /HPF (Negative) 05/04/16 10:20 Urine WBC Clumps 3+ /HPF 05/04/16 10:20 Hyaline Casts 1 /LPF 03/24/16 14:27 Urine Mucus Few /HPF 05/04/16 10:20 Urine Yeast (Budding) 1+ /HPF 05/04/16 10:20 Ur Random Creatinine See scanned report 03/31/16 12:20 U Random Total Protein See scanned report 03/31/16 12:20 Urine Creatinine 85.5 mg/dL (0.1-20.0) H 04/20/16 11:50 Protein/Creatinin Ratio See scanned report 03/31/16 12:20 Urine Sodium 17 mEq/L 04/20/16 11:50 U Abnormal Prot Band 1 See scanned report 03/31/16 12:20 U Abnormal Prot Band 2 See scanned report 03/31/16 12:20 U Abnormal Prot Band 3 See scanned report 03/31/16 12:20 Ketones 1.0 mg/dL (0.2-2.8) 03/24/16 14:00 Blood Type A POSITIVE 05/09/16 19:47 Antibody Screen Negative 05/09/16 19:47 Crossmatch See Detail 05/09/16 19:47
[2016-05-24] MEDS: NOVOLOG SUB-Q SCH (01:36)
[2016-05-24] MEDS: DUONEB 0.5 MG-3 MG/3 ML SOLN IH SCH ×4 (02:28→19:38)
[2016-05-24] MEDS: TYLENOL FEEDTUBE PRN ×2 (06:00→20:54)
[2016-05-24] MEDS: ZESTRIL PO SCH ×2 (10:39→21:01)
[2016-05-24] MEDS: NORVASC PO SCH (10:39)
[2016-05-24] MEDS: PEPCID PO SCH ×2 (10:39→20:59)
[2016-05-24] MEDS: NORMODYNE PO SCH ×3 (10:39→21:00)
[2016-05-24] MEDS: KEPPRA PO SCH ×2 (10:40→20:59)
[2016-05-24] MEDS: LEVEMIR SUB-Q SCH (10:40)
[2016-05-25] MEDS: NOVOLOG SUB-Q SCH ×3 (01:02→14:14)
[2016-05-25] MEDS: TYLENOL FEEDTUBE PRN (01:28)
[2016-05-25] MEDS: DUONEB 0.5 MG-3 MG/3 ML SOLN IH SCH ×4 (02:02→20:52)
--- NOTE | 2016-05-25 05:49 | Progress Note ---
Assessment and Plan Assessment and plan: 1. Acute respiratory failure: Pulmonary consulted, T Peice in place, continue current care. 2. Acute CVA:Continue stroke protocol, Hold anticoagulation for now secondary to bleeding. 3. Sepsis Secondary to UTI:Sepsis protocol, IV abx, IVF, supportive care, 4. Encephalopathy: treat sepsis, supportive care, 5. Accelerated hypertension: Monitor bp q shift, continue current therapy. 6. CAD: No angina at this time, continue current care. 7. Seizure Disorder: Continue Keppra. 8. Diabetes: ADA diet, insulin, accu check 9. Oropharyngeal dysphagia. Status post PEG placement. History Interval history: Pt lying in bed. chronically ill appearing. Stuporous. NO reported nursing events overnight. Case management consulted for D/C planning/placement/?Hospice placement. Hospitalist Physical - Constitutional Vitals: Temp Pulse Resp BP Pulse Ox 100.0 F H 99 H 20 112/81 100 05/25/16 05:42 05/25/16 05:42 05/25/16 05:42 05/25/16 05:42 05/25/16 05:42 General appearance: Present: no acute distress, other (tracheostomy) - Neck Neck: Present: supple - Respiratory Respiratory: bilateral: diminished - Extremities Extremities: no ischemia Peripheral Pulses: within normal limits - Abdominal General gastrointestinal: soft, non-tender, non-distended - Integumentary Integumentary: Present: clear, dry - Psychiatric Psychiatric: no intact judgment & insight, no memory intact - Neurologic Neurologic: no gait normal Results - Labs CBC & Chem 7: 05/20/16 04:33 05/19/16 04:32 Labs: Laboratory Last Values WBC 15.5 K/mm3 (4.5-11.0) H 05/19/16 04:32 RBC 3.94 M/mm3 (3.65-5.03) 05/19/16 04:32 Hgb 9.2 gm/dl (11.8-15.2) L 05/20/16 04:33 Hct 28.6 % (35.5-45.6) L 05/20/16 04:33 MCV 81 fl (84-94) L 05/19/16 04:32 MCH 26 pg (28-32) L 05/19/16 04:32 MCHC 32 % (32-34) 05/19/16 04:32 RDW 17.8 % (13.2-15.2) H 05/19/16 04:32 Plt Count 497 K/mm3 (140-440) H 05/20/16 04:33 Lymph % (Auto) 9.4 % (13.4-35.0) L 05/19/16 04:32 Ness % (Auto) 8.5 % (0.0-7.3) H 05/19/16 04:32 Eos % (Auto) 1.4 % (0.0-4.3) 05/19/16 04:32 Baso % (Auto) 0.6 % (0.0-1.8) 05/19/16 04:32 Lymph # 1.5 K/mm3 (1.2-5.4) 05/19/16 04:32 Ness # 1.3 K/mm3 (0.0-0.8) H 05/19/16 04:32 Eos # 0.2 K/mm3 (0.0-0.4) 05/19/16 04:32 Baso # 0.1 K/mm3 (0.0-0.1) 05/19/16 04:32 Add Manual Diff Complete 05/13/16 04:45 Total Counted 100 05/13/16 04:45 Seg Neutrophils % 80.1 % (40.0-70.0) H 05/19/16 04:32 Seg Neuts % (Manual) 76.0 % (40.0-70.0) H 05/13/16 04:45 Band Neutrophils % 3.0 % 05/13/16 04:45 Lymphocytes % (Manual) 11.0 % (13.4-35.0) L 05/13/16 04:45 Reactive Lymphs % (Man) 0 % 05/13/16 04:45 Monocytes % (Manual) 8.0 % (0.0-7.3) H 05/13/16 04:45 Eosinophils % (Manual) 1.0 % (0.0-4.3) 05/13/16 04:45 Basophils % (Manual) 1.0 % (0.0-1.8) 05/13/16 04:45 Metamyelocytes % 0 % 05/13/16 04:45 Myelocytes % 0 % 05/13/16 04:45 Promyelocytes % 0 % 05/13/16 04:45 Blast Cells % 0 % 05/13/16 04:45 Nucleated RBC % Not Reportable 05/13/16 04:45 Seg Neutrophils # 12.4 K/mm3 (1.8-7.7) H 05/19/16 04:32 Seg Neutrophils # Man 13.8 K/mm3 (1.8-7.7) H 05/13/16 04:45 Band Neutrophils # 0.5 K/mm3 05/13/16 04:45 Lymphocytes # (Manual) 2.0 K/mm3 (1.2-5.4) 05/13/16 04:45 Abs React Lymphs (Man) 0.0 K/mm3 05/13/16 04:45 Monocytes # (Manual) 1.4 K/mm3 (0.0-0.8) H 05/13/16 04:45 Eosinophils # (Manual) 0.2 K/mm3 (0.0-0.4) 05/13/16 04:45 Basophils # (Manual) 0.2 K/mm3 (0.0-0.1) H 05/13/16 04:45 Metamyelocytes # 0.0 K/mm3 05/13/16 04:45 Myelocytes # 0.0 K/mm3 05/13/16 04:45 Promyelocytes # 0.0 K/mm3 05/13/16 04:45 Blast Cells # 0.0 K/mm3 05/13/16 04:45 WBC Morphology Not Reportable 05/13/16 04:45 Hypersegmented Neuts Not Reportable 05/13/16 04:45 Hyposegmented Neuts Not Reportable 05/13/16 04:45 Hypogranular Neuts Not Reportable 05/13/16 04:45 Smudge Cells Not Reportable 05/13/16 04:45 Toxic Granulation Not Reportable 05/13/16 04:45 Toxic Vacuolation Not Reportable 05/13/16 04:45 Dohle Bodies Not Reportable 05/13/16 04:45 Pelger-Huet Anomaly Not Reportable 05/13/16 04:45 Corina Rods Not Reportable 05/13/16 04:45 Platelet Estimate Consistent w auto 05/13/16 04:45 Clumped Platelets Not Reportable 05/13/16 04:45 Plt Clumps, EDTA Not Reportable 05/13/16 04:45 Large Platelets Not Reportable 05/13/16 04:45 Giant Platelets Not Reportable 05/13/16 04:45 Platelet Satelliting Not Reportable 05/13/16 04:45 Plt Morphology Comment Not Reportable 05/13/16 04:45 RBC Morphology Not Reportable 05/13/16 04:45 Dimorphic RBCs Not Reportable 05/13/16 04:45 Polychromasia Rare 05/13/16 04:45 Hypochromasia Not Reportable 05/13/16 04:45 Poikilocytosis Not Reportable 05/13/16 04:45 Anisocytosis 1+ 05/13/16 04:45 Microcytosis Not Reportable 05/13/16 04:45 Macrocytosis Rare 05/13/16 04:45 Spherocytes Not Reportable 05/13/16 04:45 Pappenheimer Bodies Not Reportable 05/13/16 04:45 Sickle Cells Not Reportable 05/13/16 04:45 Target Cells Not Reportable 05/13/16 04:45 Tear Drop Cells Not Reportable 05/13/16 04:45 Ovalocytes Not Reportable 05/13/16 04:45 Helmet Cells Not Reportable 05/13/16 04:45 Mcgrath-[place] Bodies Not Reportable 05/13/16 04:45 [place] Rings Not Reportable 05/13/16 04:45 [place] Cells Not Reportable 05/13/16 04:45 Bite Cells Not Reportable 05/13/16 04:45 Crenated Cell Not Reportable 05/13/16 04:45 Elliptocytes Not Reportable 05/13/16 04:45 Acanthocytes (Spur) Not Reportable 05/13/16 04:45 Rouleaux Not Reportable 05/13/16 04:45 Hemoglobin C Crystals Not Reportable 05/13/16 04:45 Schistocytes Not Reportable 05/13/16 04:45 Malaria parasites Not Reportable 05/13/16 04:45 Percent Retic 3.68 % (0.78-2.58) H 04/29/16 10:16 [place] Bodies Not Reportable 05/13/16 04:45 Hem Pathologist Commnt No 05/13/16 04:45 PT 13.8 Sec. (12.2-14.9) 05/12/16 11:01 INR 1.07 (0.87-1.13) 05/12/16 11:01 APTT 27.2 Sec. (24.2-36.6) 05/12/16 11:01 Heparin Anti-Xa Level < 0.10 U.I./ml (0.3-0.7) L 05/13/16 18:06 POC ABG pH 7.491 (7.35-7.45) H 05/16/16 04:29 POC ABG pCO2 33.9 (35-45) L 05/16/16 04:29 POC ABG pO2 88 (80-105) 05/16/16 04:29 POC ABG HCO3 25.9 05/16/16 04:29 POC ABG Total CO2 27 05/16/16 04:29 POC ABG O2 Sat 98 05/16/16 04:29 POC ABG Base Excess 3 05/16/16 04:29 VBG pH 7.418 (7.320-7.420) 03/24/16 14:00 FiO2 25 % 05/16/16 04:29 Sodium 140 mmol/L (137-145) 05/19/16 04:32 Potassium 4.3 mmol/L (3.6-5.0) 05/19/16 04:32 Chloride 101.1 mmol/L (98-107) 05/19/16 04:32 Carbon Dioxide 24 mmol/L (22-30) 05/19/16 04:32 Anion Gap 19 mmol/L 05/19/16 04:32 BUN 19 mg/dL (9-20) 05/19/16 04:32 Creatinine 0.5 mg/dL (0.8-1.5) L 05/19/16 04:32 Estimated GFR > 60 ml/min 05/19/16 04:32 BUN/Creatinine Ratio 38.00 % 05/19/16 04:32 Glucose 133 mg/dL (75-100) H 05/19/16 04:32 POC Glucose 196 (70-105) H 05/25/16 00:24 Hemoglobin A1c 9.6 % (4-6) H 03/24/16 14:00 Lactic Acid 1.6 mmol/L (0.7-2.0) 04/17/16 12:17 Calcium 9.0 mg/dL (8.4-10.2) 05/19/16 04:32 Phosphorus 3.1 mg/dL (2.5-4.5) 05/11/16 04:16 Magnesium 2.3 mg/dL (1.7-2.3) 05/11/16 04:16 Iron 10 ug/dL (49-181) L 04/29/16 10:16 TIBC 138 mcg/dL (250-450) L 04/29/16 10:16 Ferritin 336.4 ng/mL (13.0-400.0) 04/29/16 10:16 Total Bilirubin < 0.2 mg/dL (0.1-1.2) 04/27/16 04:21 AST 18 units/L (5-40) 04/27/16 04:21 ALT 39 units/L (7-56) 04/27/16 04:21 Alkaline Phosphatase 103 units/L (35-129) 04/27/16 04:21 Lactate Dehydrogenase 204 units/L (91-180) H 04/29/16 10:16 Total Creatine Kinase 356 units/L (55-170) H 03/28/16 13:29 Troponin T < 0.010 ng/mL (0.00-0.029) 03/28/16 13:29 NT-Pro-B Natriuret Pep 897.9 pg/mL (0-900) 04/03/16 04:10 Serum Total Protein 7.1 g/dL (6.1-8.1) 03/25/16 13:00 Total Protein 6.0 g/dL (6.3-8.2) L 04/27/16 04:21 Albumin 2.0 g/dL (3.9-5) L 04/27/16 04:21 Albumin/Globulin Ratio 0.5 % 04/27/16 04:21 Ccanw-2-Gseeckauk See scanned report 03/31/16 12:20 Satee-8-Xmkeickta See scanned report 03/31/16 12:20 Beta Globulins See scanned report 03/31/16 12:20 Rgph-8-Lakcexyvgvujt 2.46 mg/L (<=2.51) 03/25/16 13:00 Gamma Globulins See scanned report 03/31/16 12:20 Abnorm Protein Band 1 see below (()) 03/25/16 13:00 PEP Interpretation See scanned report 03/31/16 12:20 Triglycerides 88 mg/dL (2-149) 03/24/16 17:58 Cholesterol 221 mg/dL (50-199) H 03/24/16 17:58 LDL Cholesterol Direct 146 mg/dL (50-130) H 03/24/16 17:58 HDL Cholesterol 58 mg/dL (40-59) 03/24/16 17:58 Cholesterol/HDL Ratio 3.81 % 03/24/16 17:58 Vitamin B12 1005 pg/mL (211-911) H 04/29/16 10:16 Folate 12.78 ng/mL (7.3-26.0) 04/29/16 10:16 Urine Color Yellow (Yellow) 05/04/16 10:20 Urine Turbidity Cloudy (Clear) 05/04/16 10:20 Urine pH 5.0 (5.0-7.0) 05/04/16 10:20 Ur Specific [place] 1.017 (1.003-1.030) 05/04/16 10:20 Urine Protein 100 mg/dl mg/dL (Negative) 05/04/16 10:20 Urine Glucose (UA) >=500 mg/dL (Negative) 05/04/16 10:20 Urine Ketones Neg mg/dL (Negative) 05/04/16 10:20 Urine Blood Sm (Negative) 05/04/16 10:20 Urine Nitrite Neg (Negative) 05/04/16 10:20 Urine Bilirubin Neg (Negative) 05/04/16 10:20 Urine Urobilinogen 2.0 mg/dL (<2.0) 05/04/16 10:20 Ur Leukocyte Esterase Lg (Negative) 05/04/16 10:20 Urine WBC (Auto) > 182.0 /HPF (0.0-6.0) H 05/04/16 10:20 Urine RBC (Auto) 13.0 /HPF (0.0-6.0) 05/04/16 10:20 U Epithel Cells (Auto) < 1.0 /HPF (0-13.0) 05/04/16 10:20 Urine Bacteria (Auto) 1+ /HPF (Negative) 05/04/16 10:20 Urine WBC Clumps 3+ /HPF 05/04/16 10:20 Hyaline Casts 1 /LPF 03/24/16 14:27 Urine Mucus Few /HPF 05/04/16 10:20 Urine Yeast (Budding) 1+ /HPF 05/04/16 10:20 Ur Random Creatinine See scanned report 03/31/16 12:20 U Random Total Protein See scanned report 03/31/16 12:20 Urine Creatinine 85.5 mg/dL (0.1-20.0) H 04/20/16 11:50 Protein/Creatinin Ratio See scanned report 03/31/16 12:20 Urine Sodium 17 mEq/L 04/20/16 11:50 U Abnormal Prot Band 1 See scanned report 03/31/16 12:20 U Abnormal Prot Band 2 See scanned report 03/31/16 12:20 U Abnormal Prot Band 3 See scanned report 03/31/16 12:20 Ketones 1.0 mg/dL (0.2-2.8) 03/24/16 14:00 Blood Type A POSITIVE 05/09/16 19:47 Antibody Screen Negative 05/09/16 19:47 Crossmatch See Detail 05/09/16 19:47
--- NOTE | 2016-05-25 09:26 | Progress Note ---
Assessment and Plan Assessment and plan: 1. Acute respiratory failure: Pulmonary consulted, T Peice in place, continue current care. 2. Acute CVA:Continue stroke protocol, Hold anticoagulation for now secondary to bleeding. 3. Sepsis Secondary to UTI:Sepsis protocol, IV abx, IVF, supportive care, 4. Encephalopathy: treat sepsis, supportive care, 5. Accelerated hypertension: Monitor bp q shift, continue current therapy. 6. CAD: No angina at this time, continue current care. 7. Seizure Disorder: Continue Keppra. 8. Diabetes: ADA diet, insulin, accu check 9. Oropharyngeal dysphagia. Status post PEG placement. Disposition Plan: to hospice care likely tomorrow. History Interval history: patient was seen and evaluated this morning. patient is on trach, comatose. Hospitalist Physical - Physical exam Narrative exam: On mechanical ventilation. Vital signs as documented. Head exam is unremarkable. No scleral icterus . Neck is without jugular venous distension, thyromegaly, or carotid bruits. Lungs are significant for gurgling sounds. Cardiac exam reveals regular rate and Rhythm. First and second heart sounds normal. No murmurs, rubs or gallops. Abdominal exam reveals normal bowel sounds, no masses, no organomegaly and no aortic enlargement. Extremities are nonedematous. 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 - Constitutional Vitals: Temp Pulse Resp BP Pulse Ox 99.3 F 94 H 16 130/84 98 05/25/16 07:49 05/25/16 07:59 05/25/16 07:59 05/25/16 07:49 05/25/16 07:49 General appearance: Present: no acute distress, other (tracheostomy) Results - Labs CBC & Chem 7: 05/20/16 04:33 05/19/16 04:32 Labs: Laboratory Last Values WBC 15.5 K/mm3 (4.5-11.0) H 05/19/16 04:32 RBC 3.94 M/mm3 (3.65-5.03) 05/19/16 04:32 Hgb 9.2 gm/dl (11.8-15.2) L 05/20/16 04:33 Hct 28.6 % (35.5-45.6) L 05/20/16 04:33 MCV 81 fl (84-94) L 05/19/16 04:32 MCH 26 pg (28-32) L 05/19/16 04:32 MCHC 32 % (32-34) 05/19/16 04:32 RDW 17.8 % (13.2-15.2) H 05/19/16 04:32 Plt Count 497 K/mm3 (140-440) H 05/20/16 04:33 Lymph % (Auto) 9.4 % (13.4-35.0) L 05/19/16 04:32 Barrow % (Auto) 8.5 % (0.0-7.3) H 05/19/16 04:32 Eos % (Auto) 1.4 % (0.0-4.3) 05/19/16 04:32 Baso % (Auto) 0.6 % (0.0-1.8) 05/19/16 04:32 Lymph # 1.5 K/mm3 (1.2-5.4) 05/19/16 04:32 Barrow # 1.3 K/mm3 (0.0-0.8) H 05/19/16 04:32 Eos # 0.2 K/mm3 (0.0-0.4) 05/19/16 04:32 Baso # 0.1 K/mm3 (0.0-0.1) 05/19/16 04:32 Add Manual Diff Complete 05/13/16 04:45 Total Counted 100 05/13/16 04:45 Seg Neutrophils % 80.1 % (40.0-70.0) H 05/19/16 04:32 Seg Neuts % (Manual) 76.0 % (40.0-70.0) H 05/13/16 04:45 Band Neutrophils % 3.0 % 05/13/16 04:45 Lymphocytes % (Manual) 11.0 % (13.4-35.0) L 05/13/16 04:45 Reactive Lymphs % (Man) 0 % 05/13/16 04:45 Monocytes % (Manual) 8.0 % (0.0-7.3) H 05/13/16 04:45 Eosinophils % (Manual) 1.0 % (0.0-4.3) 05/13/16 04:45 Basophils % (Manual) 1.0 % (0.0-1.8) 05/13/16 04:45 Metamyelocytes % 0 % 05/13/16 04:45 Myelocytes % 0 % 05/13/16 04:45 Promyelocytes % 0 % 05/13/16 04:45 Blast Cells % 0 % 05/13/16 04:45 Nucleated RBC % Not Reportable 05/13/16 04:45 Seg Neutrophils # 12.4 K/mm3 (1.8-7.7) H 05/19/16 04:32 Seg Neutrophils # Man 13.8 K/mm3 (1.8-7.7) H 05/13/16 04:45 Band Neutrophils # 0.5 K/mm3 05/13/16 04:45 Lymphocytes # (Manual) 2.0 K/mm3 (1.2-5.4) 05/13/16 04:45 Abs React Lymphs (Man) 0.0 K/mm3 05/13/16 04:45 Monocytes # (Manual) 1.4 K/mm3 (0.0-0.8) H 05/13/16 04:45 Eosinophils # (Manual) 0.2 K/mm3 (0.0-0.4) 05/13/16 04:45 Basophils # (Manual) 0.2 K/mm3 (0.0-0.1) H 05/13/16 04:45 Metamyelocytes # 0.0 K/mm3 05/13/16 04:45 Myelocytes # 0.0 K/mm3 05/13/16 04:45 Promyelocytes # 0.0 K/mm3 05/13/16 04:45 Blast Cells # 0.0 K/mm3 05/13/16 04:45 WBC Morphology Not Reportable 05/13/16 04:45 Hypersegmented Neuts Not Reportable 05/13/16 04:45 Hyposegmented Neuts Not Reportable 05/13/16 04:45 Hypogranular Neuts Not Reportable 05/13/16 04:45 Smudge Cells Not Reportable 05/13/16 04:45 Toxic Granulation Not Reportable 05/13/16 04:45 Toxic Vacuolation Not Reportable 05/13/16 04:45 Dohle Bodies Not Reportable 05/13/16 04:45 Pelger-Huet Anomaly Not Reportable 05/13/16 04:45 Corina Rods Not Reportable 05/13/16 04:45 Platelet Estimate Consistent w auto 05/13/16 04:45 Clumped Platelets Not Reportable 05/13/16 04:45 Plt Clumps, EDTA Not Reportable 05/13/16 04:45 Large Platelets Not Reportable 05/13/16 04:45 Giant Platelets Not Reportable 05/13/16 04:45 Platelet Satelliting Not Reportable 05/13/16 04:45 Plt Morphology Comment Not Reportable 05/13/16 04:45 RBC Morphology Not Reportable 05/13/16 04:45 Dimorphic RBCs Not Reportable 05/13/16 04:45 Polychromasia Rare 05/13/16 04:45 Hypochromasia Not Reportable 05/13/16 04:45 Poikilocytosis Not Reportable 05/13/16 04:45 Anisocytosis 1+ 05/13/16 04:45 Microcytosis Not Reportable 05/13/16 04:45 Macrocytosis Rare 05/13/16 04:45 Spherocytes Not Reportable 05/13/16 04:45 Pappenheimer Bodies Not Reportable 05/13/16 04:45 Sickle Cells Not Reportable 05/13/16 04:45 Target Cells Not Reportable 05/13/16 04:45 Tear Drop Cells Not Reportable 05/13/16 04:45 Ovalocytes Not Reportable 05/13/16 04:45 Helmet Cells Not Reportable 05/13/16 04:45 Mcgrath-Lubbock Bodies Not Reportable 05/13/16 04:45 Archbold Rings Not Reportable 05/13/16 04:45 Tuan Cells Not Reportable 05/13/16 04:45 Bite Cells Not Reportable 05/13/16 04:45 Crenated Cell Not Reportable 05/13/16 04:45 Elliptocytes Not Reportable 05/13/16 04:45 Acanthocytes (Spur) Not Reportable 05/13/16 04:45 Rouleaux Not Reportable 05/13/16 04:45 Hemoglobin C Crystals Not Reportable 05/13/16 04:45 Schistocytes Not Reportable 05/13/16 04:45 Malaria parasites Not Reportable 05/13/16 04:45 Percent Retic 3.68 % (0.78-2.58) H 04/29/16 10:16 Gideon Bodies Not Reportable 05/13/16 04:45 Hem Pathologist Commnt No 05/13/16 04:45 PT 13.8 Sec. (12.2-14.9) 05/12/16 11:01 INR 1.07 (0.87-1.13) 05/12/16 11:01 APTT 27.2 Sec. (24.2-36.6) 05/12/16 11:01 Heparin Anti-Xa Level < 0.10 U.I./ml (0.3-0.7) L 05/13/16 18:06 POC ABG pH 7.491 (7.35-7.45) H 05/16/16 04:29 POC ABG pCO2 33.9 (35-45) L 05/16/16 04:29 POC ABG pO2 88 (80-105) 05/16/16 04:29 POC ABG HCO3 25.9 05/16/16 04:29 POC ABG Total CO2 27 05/16/16 04:29 POC ABG O2 Sat 98 05/16/16 04:29 POC ABG Base Excess 3 05/16/16 04:29 VBG pH 7.418 (7.320-7.420) 03/24/16 14:00 FiO2 25 % 05/16/16 04:29 Sodium 140 mmol/L (137-145) 05/19/16 04:32 Potassium 4.3 mmol/L (3.6-5.0) 05/19/16 04:32 Chloride 101.1 mmol/L (98-107) 05/19/16 04:32 Carbon Dioxide 24 mmol/L (22-30) 05/19/16 04:32 Anion Gap 19 mmol/L 05/19/16 04:32 BUN 19 mg/dL (9-20) 05/19/16 04:32 Creatinine 0.5 mg/dL (0.8-1.5) L 05/19/16 04:32 Estimated GFR > 60 ml/min 05/19/16 04:32 BUN/Creatinine Ratio 38.00 % 05/19/16 04:32 Glucose 133 mg/dL (75-100) H 05/19/16 04:32 POC Glucose 196 (70-105) H 05/25/16 00:24 Hemoglobin A1c 9.6 % (4-6) H 03/24/16 14:00 Lactic Acid 1.6 mmol/L (0.7-2.0) 04/17/16 12:17 Calcium 9.0 mg/dL (8.4-10.2) 05/19/16 04:32 Phosphorus 3.1 mg/dL (2.5-4.5) 05/11/16 04:16 Magnesium 2.3 mg/dL (1.7-2.3) 05/11/16 04:16 Iron 10 ug/dL (49-181) L 04/29/16 10:16 TIBC 138 mcg/dL (250-450) L 04/29/16 10:16 Ferritin 336.4 ng/mL (13.0-400.0) 04/29/16 10:16 Total Bilirubin < 0.2 mg/dL (0.1-1.2) 04/27/16 04:21 AST 18 units/L (5-40) 04/27/16 04:21 ALT 39 units/L (7-56) 04/27/16 04:21 Alkaline Phosphatase 103 units/L (35-129) 04/27/16 04:21 Lactate Dehydrogenase 204 units/L (91-180) H 04/29/16 10:16 Total Creatine Kinase 356 units/L (55-170) H 03/28/16 13:29 Troponin T < 0.010 ng/mL (0.00-0.029) 03/28/16 13:29 NT-Pro-B Natriuret Pep 897.9 pg/mL (0-900) 04/03/16 04:10 Serum Total Protein 7.1 g/dL (6.1-8.1) 03/25/16 13:00 Total Protein 6.0 g/dL (6.3-8.2) L 04/27/16 04:21 Albumin 2.0 g/dL (3.9-5) L 04/27/16 04:21 Albumin/Globulin Ratio 0.5 % 04/27/16 04:21 [id number] See scanned report 03/31/16 12:20 Tffas-2-Lbehrjgwe See scanned report 03/31/16 12:20 Beta Globulins See scanned report 03/31/16 12:20 Lbqk-9-[id number] 2.46 mg/L (<=2.51) 03/25/16 13:00 Gamma Globulins See scanned report 03/31/16 12:20 Abnorm Protein Band 1 see below (()) 03/25/16 13:00 PEP Interpretation See scanned report 03/31/16 12:20 Triglycerides 88 mg/dL (2-149) 03/24/16 17:58 Cholesterol 221 mg/dL (50-199) H 03/24/16 17:58 LDL Cholesterol Direct 146 mg/dL (50-130) H 03/24/16 17:58 HDL Cholesterol 58 mg/dL (40-59) 03/24/16 17:58 Cholesterol/HDL Ratio 3.81 % 03/24/16 17:58 Vitamin B12 1005 pg/mL (211-911) H 04/29/16 10:16 Folate 12.78 ng/mL (7.3-26.0) 04/29/16 10:16 Urine Color Yellow (Yellow) 05/04/16 10:20 Urine Turbidity Cloudy (Clear) 05/04/16 10:20 Urine pH 5.0 (5.0-7.0) 05/04/16 10:20 Ur Specific Coram 1.017 (1.003-1.030) 05/04/16 10:20 Urine Protein 100 mg/dl mg/dL (Negative) 05/04/16 10:20 Urine Glucose (UA) >=500 mg/dL (Negative) 05/04/16 10:20 Urine Ketones Neg mg/dL (Negative) 05/04/16 10:20 Urine Blood Sm (Negative) 05/04/16 10:20 Urine Nitrite Neg (Negative) 05/04/16 10:20 Urine Bilirubin Neg (Negative) 05/04/16 10:20 Urine Urobilinogen 2.0 mg/dL (<2.0) 05/04/16 10:20 Ur Leukocyte Esterase Lg (Negative) 05/04/16 10:20 Urine WBC (Auto) > 182.0 /HPF (0.0-6.0) H 05/04/16 10:20 Urine RBC (Auto) 13.0 /HPF (0.0-6.0) 05/04/16 10:20 U Epithel Cells (Auto) < 1.0 /HPF (0-13.0) 05/04/16 10:20 Urine Bacteria (Auto) 1+ /HPF (Negative) 05/04/16 10:20 Urine WBC Clumps 3+ /HPF 05/04/16 10:20 Hyaline Casts 1 /LPF 03/24/16 14:27 Urine Mucus Few /HPF 05/04/16 10:20 Urine Yeast (Budding) 1+ /HPF 05/04/16 10:20 Ur Random Creatinine See scanned report 03/31/16 12:20 U Random Total Protein See scanned report 03/31/16 12:20 Urine Creatinine 85.5 mg/dL (0.1-20.0) H 04/20/16 11:50 Protein/Creatinin Ratio See scanned report 03/31/16 12:20 Urine Sodium 17 mEq/L 04/20/16 11:50 U Abnormal Prot Band 1 See scanned report 03/31/16 12:20 U Abnormal Prot Band 2 See scanned report 03/31/16 12:20 U Abnormal Prot Band 3 See scanned report 03/31/16 12:20 Ketones 1.0 mg/dL (0.2-2.8) 03/24/16 14:00 Blood Type A POSITIVE 05/09/16 19:47 Antibody Screen Negative 05/09/16 19:47 Crossmatch See Detail 05/09/16 19:47
[2016-05-25] MEDS: KEPPRA PO SCH ×2 (10:46→22:27)
[2016-05-25] MEDS: LEVEMIR SUB-Q SCH (10:46)
[2016-05-25] MEDS: ZESTRIL PO SCH ×2 (10:46→22:05)
[2016-05-25] MEDS: NORVASC PO SCH (10:47)
[2016-05-25] MEDS: NORMODYNE PO SCH ×3 (10:52→21:35)
[2016-05-26] MEDS: NOVOLOG SUB-Q SCH ×5 (00:20→12:10)
[2016-05-26] MEDS: DUONEB 0.5 MG-3 MG/3 ML SOLN IH SCH ×3 (01:32→14:07)
[2016-05-26] MEDS: TYLENOL FEEDTUBE PRN (04:51)
[2016-05-26] MEDS: NORMODYNE PO SCH ×2 (09:10→14:45)
[2016-05-26] MEDS: NORVASC PO SCH (10:50)
[2016-05-26] MEDS: LEVEMIR SUB-Q SCH (10:50)
[2016-05-26] MEDS: ZESTRIL PO SCH (10:50)
[2016-05-26] MEDS: KEPPRA PO SCH (10:50)
[2016-05-26 12:16] VITALS: BP 118/81
--- NOTE | 2016-05-26 13:35 | Discharge Summary ---
Providers - Providers Date of Admission: 03/24/16 17:23 Date of discharge: 05/26/16 Attending physician: BEBA BELL MD 05/23/16 19:09 Consult to Case Management [CONS] Routine Services Needed at Discharge: Other Notified:: case mgt Was contact made?: Yes Time called:: 09:23 Comment:: Hospice discussion/evaluation 03/26/16 14:29 Speech Therapy Evaluation and Treat [CONS] Urgent Reason For Exam: Failed swallow test 03/26/16 16:29 Consult to Dietitian/Nutrition [CONS] Routine Physician Instructions: Reason For Exam: Reason for Consult: Poor oral intake 03/27/16 08:59 Consult to Dietitian/Nutrition [CONS] Routine Physician Instructions: Reason For Exam: Reason for Consult: Evaluate nutritional intake 03/29/16 15:29 Consult to Physician [CONS] Routine Consulting Provider: CHRISTIANO HI Reason For Exam: new CVA Place consult to:: dr Hi Notified:: zacoctavio de la pazmarianela Phone number called:: [phone] Was contact made?: Yes If yes, spoke with:: left msg on machine Time called:: 16:29 04/04/16 13:27 Consult to Wound/ET Nurse [CONS] Routine Reason For Exam: wound eval 04/05/16 21:10 Occupational Therapy Evaluate and Treat [CONS] Urgent Comment: need f/u Reason For Exam: f/u admission Physical Therapy Evaluation and Treat [CONS] Urgent Comment: need f/u Reason For Exam: admission, need f/u Speech Therapy Evaluation and Treat [CONS] Urgent Reason For Exam: admission, need f/u 04/13/16 14:07 Consult to Physician [CONS] Routine Consulting Provider: MILTON ROGERS Reason For Exam: PEG tube Place consult to:: Dr. Rogers Notified:: Denisse RN Phone number called:: Was contact made?: Yes If yes, spoke with:: susan-Office Time called:: 15:57 04/16/16 18:19 Consult to Dietitian/Nutrition [CONS] Routine Physician Instructions: Reason For Exam: Reason for Consult: Poor oral intake 04/16/16 19:47 Consult to Dietitian/Nutrition [CONS] Routine Physician Instructions: Reason For Exam: f/u Resp. arrest on the vent Reason for Consult: Write/Manage Tube Feeding 04/16/16 23:00 Consult to PICC Line RN [CONS] Urgent Reason For Exam: Vasopressors and need central line placement Type Line:: PICC 04/17/16 09:55 Consult to Dietitian/Nutrition [CONS] Routine Physician Instructions: Reason For Exam: Reason for Consult: post-peg 04/17/16 11:17 Consult to Physician [CONS] Routine Consulting Provider: MELANI LERNER Reason For Exam: resp failure Place consult to:: dr. lerner Notified:: yes If yes, spoke with:: yes 04/19/16 09:28 Consult to Physician [CONS] Routine Consulting Provider: DAWNA BIGGS I Reason For Exam: Trach placement Place consult to:: Dawna Biggs Notified:: yes Phone number called:: [phone] Was contact made?: Yes If yes, spoke with:: natasha Time called:: 10:00 Primary care physician: SLAT TWISTER Hospitalization Reason for admission: CVA, acute respiratory failure, metabolic encephalopathy, acute renal fail Condition: Critical Hospital course: Patient was admitted for CVA, hypertensive emergency, acute renal failure, CAD, electrolyte abnormalities, dehydration. Patient was intubated and mechanically ventilated later trach was placed. Patient is unresponsive and his prognosis is poor. I have discussed this with his and she agreed to make him hospice. She made him DNR/DNI. The patient is going to be transferred to inpatient hospice [facility] service. Discharge Dx - CVA - Encephalpathy - Acute hypoxic respiratory failure - CAD - Electrolyte abnormalities - Severe dehydration - On trach - DO NOT RESUSCITATE/ and I Disposition: DC HOSPICE (MEDICAL FACILITY) Time spent for discharge: 31 minutes Core Measure Documentation - Palliative Care Palliative Care/ Comfort Measures: Hospice Care Exam - Physical Exam Narrative exam: patient is on mechanical ventilation Vital signs as documented. Head exam is unremarkable. No scleral icterus . Neck is without jugular venous distension, thyromegaly, or carotid bruits. Lungs are clear to auscultation. Cardiac exam reveals regular rate and Rhythm. First and second heart sounds normal. No murmurs, rubs or gallops. Abdominal exam reveals normal bowel sounds, no masses, no organomegaly and no aortic enlargement. 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 - Constitutional Vitals: Temp Pulse Resp BP Pulse Ox 101.6 F H 131 H 20 118/81 100 05/26/16 12:15 05/26/16 12:15 05/26/16 12:15 05/26/16 12:15 05/26/16 12:15 Plan Activity: other (patient is comatose) Weight Bearing Status: Non-Weight Bearing Diet: other (per family wishes) Forms: Warfarin Discharge Instruction Prescriptions: Morphine Sulfate/Pf [Morphine 1 mg/2 ml Syringe] 4 mg IV Q4H PRN #30 syringe PRN Reason: Pain
== END 2016-05-26 15:37 | disposition hospice, inpatient (51) | DRG 4 ==
LOC: ED 13:21 → 4A 17:23 → CC1 03-26 16:15 → 4A 04-06 00:53 → CC1 04-16 18:44 → 4A 05-20 19:05
PROVIDERS: ADMIT Internal Medicine; ATTEND Internal Medicine
PROC: 5A1955Z Respiratory Ventilation, Greater than 96 Consecutive Hours (ICD-10-PCS; principal; 2016-03-26)
PROC: 0BH17EZ Insertion of Endotracheal Airway into Trachea, Via Natural or Artificial Opening (ICD-10-PCS; 2016-03-26)
PROC: 03H Upper Arteries, Insertion (ICD-10-PCS; 2016-03-26)
PROC: 0DH63UZ Insertion of Feeding Device into Stomach, Percutaneous Approach (ICD-10-PCS; 2016-04-17)
PROC: 0B113F4 Bypass Trachea to Cutaneous with Tracheostomy Device, Percutaneous Approach (ICD-10-PCS; 2016-04-29)
PROC: 30233N1 Transfusion of Nonautologous Red Blood Cells into Peripheral Vein, Percutaneous Approach (ICD-10-PCS; 2016-04-29)
DX: A41.9 Sepsis, unspecified organism (principal); N17.0 Acute kidney failure with tubular necrosis; G93.41 Metabolic encephalopathy; I63.9 Cerebral infarction, unspecified; J96.01 Acute respiratory failure with hypoxia; I13.0 Hypertensive heart and chronic kidney disease with heart failure and stage 1 through stage 4 chronic kidney disease, or unspecified chronic kidney disease; I16.1 Hypertensive emergency; E87.0 Hyperosmolality and hypernatremia; N39.0 Urinary tract infection, site not specified; I50.20 Unspecified systolic (congestive) heart failure; Z66 Do not resuscitate; B95.1 Streptococcus, group B, as the cause of diseases classified elsewhere; E78.5 Hyperlipidemia, unspecified; E11.22 Type 2 diabetes mellitus with diabetic chronic kidney disease; N18.9 Chronic kidney disease, unspecified; E87.8 Other disorders of electrolyte and fluid balance, not elsewhere classified; D64.9 Anemia, unspecified; G40.909 Epilepsy, unspecified, not intractable, without status epilepticus; I25.10 Atherosclerotic heart disease of native coronary artery without angina pectoris; E87.6 Hypokalemia; K44.9 Diaphragmatic hernia without obstruction or gangrene; E11.65 Type 2 diabetes mellitus with hyperglycemia; K29.70 Gastritis, unspecified, without bleeding; Z51.5 Encounter for palliative care; R13.12 Dysphagia, oropharyngeal phase; Z95.4 Presence of other heart-valve replacement; Z79.4 Long term (current) use of insulin
CPT/HCPCS: 31500; 36415; 36600; 70450; 70490; 70544; 70547; 70551; 71010; 74000; 76770; 78580; 80048; 80053; 80061; 81001; 82010; 82140; 82232; 82550; 82570; 82607; 82728; 82747; 82803; 82805; 82947; 82962; 83036; 83550; 83615; 83735; 83880; 84100; 84165; 84166; 84300; 84484; 85007; 85014; 85018; 85025; 85027; 85045; 85049; 85520; 85610; 85730; 86850; 86900; 86901; 86920; 87040; 87070; 87076; 87086; 87186; 87205; 90686; 90732; 93005; 93010; 93306; 93312; 93320; 93325; 93880; 93970; 94002; 94003; 94640; 94644; 94760; 95819; 96361; 96372; 96374; 96375; A9270-GY; A9540; J0330; J0360; J0690; J0692; J0696; J1170; J1644; J1815; J1818; J1940; J2001; J2250; J2405; J2543; J2704; J2765; J3010; J3480; J7030; J7040; J7050; J7070; P9016